=== PATIENT | female | born 1960 | race Caucasian/White ===

== ENCOUNTER 2019-11-28 13:45 | Emergency (ER) | payer MEDICAID, SELFPAY ==
[2019-11-28 14:02] VITALS: BP 121/68; PULSE 90; RESP 16; TEMP 36.7; O2SAT 97; BMI 27.1
== END 2019-11-28 15:10 | disposition left against medical advice (07) ==
LOC: HO.ED 15:08
PROVIDERS: Emergency Provider Emergency Medicine; PCP Family Medicine
DX: R10.9 Unspecified abdominal pain (principal); R11.0 Nausea
CPT/HCPCS: 99281; 99282; 99283

== ENCOUNTER 2019-12-22 14:44 | Emergency (ER) | payer MEDICAID, SELFPAY ==
[2019-12-22 15:35] VITALS: BP 152/77; PULSE 96; RESP 18; TEMP 37.1; O2SAT 97; BMI 27.8
[2019-12-22 15:56] VITALS: BP 178/86; PULSE 97; RESP 14; TEMP 36.8; O2SAT 99
[2019-12-22] MEDS: Ketorolac Tromethamine 30 MG/ML VIAL IM (15:59)
[2019-12-22 16:06] LABS: MANUAL DIFF FLAG NO
[2019-12-22 16:07] LABS: Basophils Percent Auto 0.4 % (0-2); Eosinophils Absolute Auto 0.2 X10*3/uL (0.0-0.4); Eosinophils Percent Auto 2.6 % (0-4); Hematocrit 42.1 % (37-47); Hemoglobin 13.9 g/dl (12.0-16.0); Imm Gran Abs Auto 0.01 X10*3/uL (0.00-0.03); Imm Gran Pct Auto 0.1 % (0.0-0.4); Lymphocytes Absolute Auto 2.2 X10*3/uL (1.2-4.9); Lymphocytes Percent Auto 31.6 % (20-40); Mean Corpuscular Volume 87.9 fL (80-98); Monocytes Absolute Auto 0.4 X10*3/uL (0.1-1.2); Monocytes Percent Auto 6.3 % (2-11); Neutrophils Absolute Auto 4.1 X10*3/uL (2.0-8.3); Platelet Count 296 X10*3/uL (160-400); Red Blood Count 4.79 X10*6/uL (4.20-5.50); Red Cell Distribution Width 13.1 % (11.0-16.0)
[2019-12-22 16:09] LABS: Glucose Urine UA >=1000 MG/DL (NEG); Leukocyte Esterase Urine NEG (NEG); Nitrite Urine NEG (NEG); PH 5.5 (5.0-8.0); Urine Blood TRACE (NEG); Urine Ketones NEG (NEG); Urine Protein TRACE MG/DL (NEG-TRACE)
[2019-12-22 16:13] LABS: Appearance Urine HAZY; Color Urine YELLOW
[2019-12-22 16:23] LABS: RBC Urine 0-2 /HPF (0); WBC Urine 0 /HPF (0-4)
[2019-12-22 16:24] LABS: Bacteria Urine 3+ /LPF; Squamous Epithelial Cell Urine 1+ /LPF
[2019-12-22 16:30] LABS: Lipase 13 U/L (8-78)
[2019-12-22 16:31] LABS: Alanine Aminotransferase 11 U/L (0-31); Alkaline Phosphatase 92 U/L (39-117); Anion Gap 12 (12-20); Aspartate Amino Transferase 10 U/L (5-31); Bilirubin Total 0.5 mg/dL (0.0-1.0); Blood Urea Nitrogen 9 mg/dL (9-16); Calcium 9.4 mg/dL (8.4-10.2); Carbon Dioxide 29 mmol/L (22-29); Chloride 99 mmol/L (96-108); Creatinine Clr Calc Pharmacy 70.7; Estimated Glomerular Filt Rate > 60; Glucose Random 328 mg/dL (60-115); Potassium 4.2 mmol/l (3.3-5.1); Sodium 136 mmol/L (135-145); Total Protein 6.5 g/dL (6.5-8.0)
--- NOTE | 2019-12-22 17:09 | ED.ABDPAIN ---
HPI - Abdominal Pain General Chief Complaint: Abdominal Pain Stated Complaint: abdominal pain Time Seen by Provider: 12/22/19 15:42 Source: patient Mode of arrival: ambulatory Limitations: no limitations History of Present Illness HPI narrative: Left-sided upper abdominal wall pain. States she was going up and down the stairs a few times caring her laundry and felt like pulled something in the abdominal wall and had pain there. Denies any nausea vomiting. Denies any fever or chills. No diarrhea. MD elicited complaint: abdominal pain Onset (ago): hour(s) Pain Consistency: intermittent Location: LUQ Severity: mild Quality: aching Migration to: no migration Exacerbating factors: nothing Associated symptoms: denies other symptoms Related Data Home Medications Medication Instructions Recorded Confirmed HTN Complex 12/22/19 gabapentin 25 mg PO BID 12/22/19 12/22/19 insulin lispro unit SUBCUT 12/22/19 metformin 1,000 mg PO DAILY 12/22/19 12/22/19 oxycodone 5 mg 12/22/19 Allergies Allergy/AdvReac Type Severity Reaction Status Date / Time latex [LATEX] Allergy Unknown RASH Unverified 10/31/19 16:53 morphine Allergy Unknown Verified 08/23/16 00:00 naproxen [From NAPROSYN] Allergy Unknown TACHYCARDIA Unverified 10/31/19 16:53 none Allergy Unknown Uncoded 02/04/19 00:00 Review of Systems Review of Systems Constitutional: No Weight loss, No Fever, No Chills, No Night Sweats, No Fatigue, No Malaise ENT/Mouth: No Hearing loss, No Ear Pain, No Nasal Congestion, No Sinus Pain, No Hoarseness, No sore throat, No Rhinorrhea, No Swallowing Difficulty Eyes: No Eye Pain, No Swelling, No Redness, No Foreign Body, No Discharge, No Vision Changes Cardiovascular: No Chest Pain, No SOB, No Dyspnea on Exertion, No Orthopnea, No Edema, No Palpitations Respiratory: No Cough, No Sputum, No Wheezing, No Smoke Exposure, No Dyspnea Gastrointestinal: No Nausea, No Vomiting, No Diarrhea, No Constipation, + abdominal Pain, No Hematochezia, No Melena Genitourinary: no irregular bleeding, No Dysuria, No Urinary Frequency, No Hematuria, No Urinary Incontinence, No Urgency, No Flank Pain, No Urinary Flow Changes, No Hesitancy Musculoskeletal: No joint pain, No Myalgias, No Joint Swelling Skin: No Skin Lesions, No rash Neuro: No Weakness, No Numbness, No Paresthesias, No Loss of Consciousness, No Dizziness, No Headache Psych: No Anxiety/Panic, No Depression Heme/Lymph: No Bruising, No Bleeding,No Lymphadenopathy Endocrine: No Polyuria, No Polydipsia, No Temperature Intolerance Yes all other systems are reviewed and are negative Physical Exam Vital Signs: Vital Signs: Last Vital Signs Temp 98.2 F 12/22/19 15:56 Pulse 97 12/22/19 15:56 Resp 14 12/22/19 15:56 BP 178/86 H 12/22/19 15:56 Pulse Ox 99 12/22/19 15:56 Body Mass Index 27.8 Reviewed Const: General: cooperative and healthy appearing; No acute distress or intoxicated appearing Nutritional Appearance: average body habitus Orientation/consciousness: patient oriented x3 HENMT: Head: Yes normal to inspection Ears: hearing grossly normal bilaterally Eyes: General: appearance normal, both eyes and all related structures Visual Staples: normal visual staples by confrontation Neck: Neck: Yes normal visual inspection and No tender Thyroid: Thyroid normal Chest: Chest palpation & inspection: normal inspection of the chest Resp: Effort & Inspection: normal respiratory effort Cardio: Jugular venous distension: no JVD GI: Inspection: Yes normal to inspection Percussion: Yes normal to percussion Auscultation: normal bowel sounds Abdomen image: 1. abdominal wall tender palpation. No deep tissue palpation. Hurts to very light touch to the abdominal wall but no to deep tender palpation. : General: Yes no CVA tenderness Back/Spine/Pelvis: Back: no CVA tenderness Skin: General skin exam: no rashes or lesions noted Neuro: General: patient oriented x3 Extrem: General: Yes normal to inspection Course Course Course Narrative: AP/ exam consistent with abdominal wall so strain after lifting laundry bag. Blood pressures bilateral Upper extremities within normal limits. no ETOH history. Labs overall stable very well nontoxic appearing. Labs overall stable will discharge with depression follow-up. Stable for discharge. MDM - Abdominal Pain Differential Diagnosis Differential diagnosis: Likely abdominal pain; Unlikely aortic dissection, acute appendicitis, bowel perforation, calculus of kidney, constipation, diverticulitis, endometriosis, gastroenteritis, mesenteric ischemia, ovarian cyst, pancreatitis, peptic ulcer disease, renal colic and small bowel obstruction Lab Data Result diagrams: 12/22/19 16:01 12/22/19 16:01 Labs: Lab Results 12/22/19 12/22/19 12/22/19 Range/Units 16:01 16:01 16:01 WBC 7.0 (4.8-10.8) X10*3/uL RBC 4.79 (4.20-5.50) X10*6/uL Hgb 13.9 (12.0-16.0) g/dl Hct 42.1 (37-47) % MCV 87.9 (80-98) fL MCH 29.0 (27.0-33.0) pg MCHC 33.0 (31.0-35.0) g/dl RDW 13.1 (11.0-16.0) % Plt Count 296 (160-400) X10*3/uL MPV 9.0 L (9.4-12.3) fL Immature Gran % (Auto) 0.1 (0.0-0.4) % Neut % (Auto) 59.0 (45-73) % Lymph % (Auto) 31.6 (20-40) % [place] % (Auto) 6.3 (2-11) % Eos % (Auto) 2.6 (0-4) % Baso % (Auto) 0.4 (0-2) % Lymph # (Auto) 2.2 (1.2-4.9) X10*3/uL [place] # (Auto) 0.4 (0.1-1.2) X10*3/uL Eos # (Auto) 0.2 (0.0-0.4) X10*3/uL Baso # (Auto) 0.0 (0.0-0.2) X10*3/uL Abs Immat Gran (auto) 0.01 (0.00-0.03) X10*3/uL Absolute Neuts (auto) 4.1 (2.0-8.3) X10*3/uL Absolute Nucleated RBC 0.000 (0.0-0.012) X10*3/uL Nucleated RBC % (auto) 0.0 (0.0-0.2) /100WBC Sodium 136 (135-145) mmol/L Potassium 4.2 (3.3-5.1) mmol/l Chloride 99 (96-108) mmol/L Carbon Dioxide 29 (22-29) mmol/L Anion Gap 12 (12-20) BUN 9 (9-16) mg/dL Creatinine 0.79 (0.5-1.4) mg/dL Estim Creat Clear Calc 70.7 Estimated GFR > 60 Random Glucose 328 H (60-115) mg/dL Calcium 9.4 (8.4-10.2) mg/dL Total Bilirubin 0.5 (0.0-1.0) mg/dL AST 10 (5-31) U/L ALT 11 (0-31) U/L Alkaline Phosphatase 92 (39-117) U/L Total Protein 6.5 (6.5-8.0) g/dL Albumin 4.0 (3.5-5.0) g/dL Lipase 13 (8-78) U/L Urine Color Urine Appearance Urine pH (5.0-8.0) Ur Specific [place] (1.005-1.025) Urine Protein (NEG-TRACE) MG/DL Urine Glucose (UA) (NEG) MG/DL Urine Ketones (NEG) MG/DL Urine Blood (NEG) Urine Nitrite (NEG) Ur Leukocyte Esterase (NEG) Urine RBC (0) /HPF Urine WBC (0-4) /HPF Ur Squamous Epith Cells /LPF Urine Bacteria /LPF 12/22/19 Range/Units 16:01 WBC (4.8-10.8) X10*3/uL RBC (4.20-5.50) X10*6/uL Hgb (12.0-16.0) g/dl Hct (37-47) % MCV (80-98) fL MCH (27.0-33.0) pg MCHC (31.0-35.0) g/dl RDW (11.0-16.0) % Plt Count (160-400) X10*3/uL MPV (9.4-12.3) fL Immature Gran % (Auto) (0.0-0.4) % Neut % (Auto) (45-73) % Lymph % (Auto) (20-40) % [place] % (Auto) (2-11) % Eos % (Auto) (0-4) % Baso % (Auto) (0-2) % Lymph # (Auto) (1.2-4.9) X10*3/uL [place] # (Auto) (0.1-1.2) X10*3/uL Eos # (Auto) (0.0-0.4) X10*3/uL Baso # (Auto) (0.0-0.2) X10*3/uL Abs Immat Gran (auto) (0.00-0.03) X10*3/uL Absolute Neuts (auto) (2.0-8.3) X10*3/uL Absolute Nucleated RBC (0.0-0.012) X10*3/uL Nucleated RBC % (auto) (0.0-0.2) /100WBC Sodium (135-145) mmol/L Potassium (3.3-5.1) mmol/l Chloride (96-108) mmol/L Carbon Dioxide (22-29) mmol/L Anion Gap (12-20) BUN (9-16) mg/dL Creatinine (0.5-1.4) mg/dL Estim Creat Clear Calc Estimated GFR Random Glucose (60-115) mg/dL Calcium (8.4-10.2) mg/dL Total Bilirubin (0.0-1.0) mg/dL AST (5-31) U/L ALT (0-31) U/L Alkaline Phosphatase (39-117) U/L Total Protein (6.5-8.0) g/dL Albumin (3.5-5.0) g/dL Lipase (8-78) U/L Urine Color YELLOW Urine Appearance HAZY Urine pH 5.5 (5.0-8.0) Ur Specific [place] 1.020 (1.005-1.025) Urine Protein TRACE (NEG-TRACE) MG/DL Urine Glucose (UA) >=1000 H (NEG) MG/DL Urine Ketones NEG (NEG) MG/DL Urine Blood TRACE (NEG) Urine Nitrite NEG (NEG) Ur Leukocyte Esterase NEG (NEG) Urine RBC 0-2 (0) /HPF Urine WBC 0 (0-4) /HPF Ur Squamous Epith Cells 1+ /LPF Urine Bacteria 3+ /LPF Discharge Plan Discharge Clinical Impression: Abdominal muscle strain Qualifiers: Encounter type: initial encounter Qualified Code(s): S39.011A - Strain of muscle, fascia and tendon of abdomen, initial encounter Patient Disposition: Home, Self-Care Instructions: Muscle Strain (ED) Prescriptions: No Action oxycodone 5 mg RF: 0 metformin 1,000 mg Tablet 1,000 mg PO DAILY RF: 0 insulin lispro 100 unit/mL Insulin Pen SUBCUT RF: 0 HTN Complex RF: 0 gabapentin 25 mg PO BID RF: 0 Referrals: Radha Jamison DO [Primary Care Provider] - 1 week [facility] Past Medical History Attestation statement: The following information was validated with the patient. Medical History (Updated 12/22/19 @ 17:11 by Sanju Guillen NP) Arthritis Asthma Cyst (solitary) of breast Diabetes HTN (hypertension) Kidney calculi Social History Social History Advance Directives: No Advance Directives Information Provided: Yes
== END 2019-12-22 17:59 | disposition home or self-care (01) ==
PROVIDERS: Nurse Practitioner Primary Care; Emergency Provider Emergency Medicine; PCP Family Medicine
DX: S39.011A Strain of muscle, fascia and tendon of abdomen, initial encounter (principal); R10.12 Left upper quadrant pain; X50.1XXA Overexertion from prolonged static or awkward postures, initial encounter; Y93.9 Activity, unspecified; Y92.9 Unspecified place or not applicable; Y99.9 Unspecified external cause status; Z79.899 Other long term (current) drug therapy
CPT/HCPCS: 36415; 80053; 81001; 83690; 85025; 96372; 99284; J1885

== ENCOUNTER → 2020-01-02 14:49 | Outpatient (BNVA) | payer MEDICAID, SELFPAY | PROVIDERS: PCP Family Medicine; Visit Provider Internal Medicine Cardiovascular Disease | DX: I25.10 Atherosclerotic heart disease of native coronary artery without angina pectoris (principal); I10 Essential (primary) hypertension; R07.89 Other chest pain; Z79.82 Long term (current) use of aspirin; Z79.899 Other long term (current) drug therapy | CPT/HCPCS: 93005; 99202 ==

== ENCOUNTER 2020-01-16 10:06 | Emergency (ER) | payer MEDICAID, SELFPAY ==
[2020-01-16 10:23] VITALS: BP 169/80; PULSE 84; RESP 20; TEMP 36.3; O2SAT 99; BMI 25.6
--- NOTE | 2020-01-16 10:27 | CT_ITS ---
EXAMINATION: CT ABDOMEN AND PELVIS WITH CONTRAST CLINICAL INFORMATION: Left upper quadrant and epigastric pain COMPARISON: CT abdomen and pelvis 12/18/2018 TECHNIQUE: Multidetector volumetric images were obtained from the superior aspect of the liver through the pubic symphysis following administration 85 mL of Omnipaque 350 intravenous contrast. Sagittal and coronal reformatted images were obtained on the technologist's workstation. Oral contrast: No This CT examination was performed using dose optimization techniques as appropriate, variously including the following: *Automated exposure control *Adjustment of mA and/or kV according to patient size (this includes techniques or standardized protocols for targeted exams where dose is matched to indication/reason for exam; i.e. extremities or head) *Use of iterative reconstruction technique DLP: 5:15 mGy-cm FINDINGS: LUNG BASES: There is a 5 mm calcified granuloma left lung base. Heart size is normal. There is a small size hiatal hernia. LIVER, GALLBLADDER, AND BILIARY TREE: The liver is normal in size, shape, and attenuation. No focal hepatic lesion or biliary ductal dilatation is present. The gallbladder is unremarkable with no evidence of radiopaque gallstones, gallbladder wall thickening, or obvious pericholecystic inflammatory changes. PANCREAS: Unremarkable. SPLEEN: Focal calcification is seen in the spleen likely granuloma. Otherwise spleen is normal size. ADRENAL GLANDS: Unremarkable. KIDNEYS AND URETERS: The kidneys are normal in size, shape, and attenuation. No hydronephrosis, hydroureter, or calculi seen. No perinephric stranding. BLADDER: Unremarkable. GASTROINTESTINAL TRACT: There is scattered stool and gas seen throughout the colon without any significant distention. The small bowel loops are normal caliber. There is no free air or free fluid. ABDOMINAL WALL: No significant hernia is appreciated. LYMPH NODES: Normal. VASCULAR: There is atherosclerotic calcification of abdominal aorta without aneurysmal dilatation. PELVIC VISCERA: The uterus is anteverted, enlarged and slightly heterogenous. No focal pelvic mass or free fluid seen. OSSEOUS STRUCTURES: No lytic or sclerotic process seen. CT/CT abdomen pelvis w con IMPRESSION: No acute intra-abdominal process seen. No change in slightly enlarged heterogenous uterus question fibroid disease. Moderate constipation. Small hiatal hernia.. Calcified granuloma left lung base, stable.
--- NOTE | 2020-01-16 10:27 | ECG_ITS ---
Test Reason : EPIGASTRIC PAIN Blood Pressure : / mmHG Vent. Rate : 083 BPM Atrial Rate : 083 BPM P-R Int : 130 ms QRS Dur : 086 ms QT Int : 378 ms P-R-T Axes : 044 -11 050 degrees QTc Int : 444 ms Normal sinus rhythm Minimal voltage criteria for LVH, may be normal variant Nonspecific T wave abnormality Abnormal ECG When compared with ECG of 07-NOV-2019 22:30, Nonspecific T wave abnormality now evident in Inferior leads Nonspecific T wave abnormality, worse in Lateral leads Referred By: Jenifer Reed Electronically Signed By:CAROLYNE ECHOLS MD
--- NOTE | 2020-01-16 10:29 | ED.ABDPAIN ---
HPI - Abdominal Pain General Chief Complaint: Abdominal Pain Stated Complaint: abd pain Time Seen by Provider: 01/16/20 10:27 Source: patient and old records reviewed Mode of arrival: ambulatory Limitations: no limitations History of Present Illness MD elicited complaint: abdominal pain Pertinent past history: other (h pylori infection) Onset (ago): month(s) (1) Pain Consistency: constant Location: epigastric and LUQ Severity: moderate Quality: stabbing, fullness and sharp Migration to: no migration Exacerbating factors: movement Relieving factors: nothing Context: other (just completed H pylori treatment yesterday) Associated symptoms: nausea Related Data Home Medications Medication Instructions Recorded Confirmed metformin 1,000 mg PO DAILY 12/22/19 01/02/20 amitriptyline 50 mg tablet 50 mg PO BEDTIME 01/02/20 01/02/20 aspirin 81 mg tablet,delayed 81 mg PO DAILY 01/02/20 01/02/20 release atorvastatin 80 mg tablet 80 mg PO DAILY 01/02/20 01/02/20 carvedilol 25 mg tablet 25 mg PO BID 01/02/20 01/02/20 docusate sodium 100 mg capsule 100 mg PO DAILY 01/02/20 01/02/20 ergocalciferol (vitamin D2) 50 mcg 50 mcg PO DAILY 01/02/20 01/02/20 (2,000 unit) tablet escitalopram oxalate 20 mg tablet 20 mg PO DAILY 01/02/20 01/02/20 ferrous sulfate 325 mg (65 mg 325 mg PO TID 01/02/20 01/02/20 iron) tablet fluticasone propionate 110 1 puff INHALATION Q12H 01/02/20 01/02/20 mcg/actuation HFA aerosol inhaler fluticasone propionate 50 1 spray INTRANASAL Q12H 01/02/20 01/02/20 mcg/actuation nasal spray,suspension gabapentin 800 mg tablet 800 mg PO TID 01/02/20 01/02/20 hydralazine 100 mg tablet 100 mg PO BID 01/02/20 01/02/20 insulin degludec 100 unit/mL (3 10 unit SUBCUT DAILY 01/02/20 01/02/20 mL) subcutaneous pen insulin lispro 100 unit/mL 1 sliding scale dose SUBCUT 01/02/20 01/02/20 subcutaneous cartridge USEASDIRECTD lisinopril 40 mg tablet 40 mg PO DAILY 01/02/20 01/02/20 mirtazapine 45 mg tablet 45 mg PO DAILY 01/02/20 01/02/20 multivitamin 1 tab PO DAILY 01/02/20 01/02/20 nitroglycerin 0.4 mg sublingual 0.4 mg SUBLINGUAL Q5M PRN 01/02/20 01/02/20 tablet oxycodone 5 mg capsule 5 mg PO Q8H PRN 01/02/20 01/02/20 pantoprazole 40 mg tablet,delayed 40 mg PO DAILY 01/02/20 01/02/20 release pioglitazone 45 mg tablet 45 mg PO DAILY 01/02/20 01/02/20 Previous Rx's Medication Instructions Recorded hydrochlorothiazide 25 mg tablet 25 mg PO DAILY #60 tab 01/02/20 dicyclomine 20 mg PO TID PRN #30 tab 01/16/20 ondansetron 4 mg PO Q8H PRN #20 tab 01/16/20 polyethylene glycol 3350 [Miralax] 17 g PO DAILY PRN #119 g 01/16/20 Allergies Allergy/AdvReac Type Severity Reaction Status Date / Time latex [LATEX] Allergy Unknown RASH Unverified 10/31/19 16:53 morphine Allergy Unknown Verified 08/23/16 00:00 naproxen [From NAPROSYN] Allergy Unknown TACHYCARDIA Unverified 10/31/19 16:53 none Allergy Unknown Uncoded 02/04/19 00:00 Review of Systems Review of Systems Constitutional : No Weight loss, No Fever, No Chills ENT/Mouth : No sore throat, No Rhinorrhea Eyes: No Swelling, No Redness Cardiovascular : No Chest Pain, No SOB, NoEdema Respiratory : No Cough, No Sputum, No Wheezing Gastrointestinal : Positive Nausea, no Vomiting, no Diarrhea, positive abdominal Pain, No Hematochezia, No Melena Genitourinary : No Dysuria, No Urinary Frequency, No Hematuria, No Urgency Musculoskeletal : No joint pain, No Myalgias, No Joint Swelling Skin : No Skin Lesions, No rash Neuro : No Weakness, No Numbness, No Dizziness, No Headache Psych : No Anxiety/Panic, No Depression All other systems reviewed and are negative. Physical Exam Vital Signs: Vital Signs: Last Vital Signs Temp 97.3 F 01/16/20 10:23 Pulse 87 01/16/20 11:17 Resp 20 01/16/20 11:17 BP 169/77 H 01/16/20 11:17 Pulse Ox 98 01/16/20 11:17 Body Mass Index 25.6 Appearance: Alert. Oriented X3. No acute distress. Eyes: Pupils equal, round and reactive to light. ENT: Pharynx normal. Neck: Normal inspection. Neck supple. CVS: Normal heart rate and rhythm. Pulses normal. Respiratory: No respiratory distress. Breath sounds normal. Abdomen: Soft and mild tenderness LUQ and epigastric pain, no rebound or guarding. Skin: Skin warm and dry. Normal skin color. Normal skin turgor. Extremities: No lower extremity edema. No calf ttp Neuro: Oriented X 3. No motor deficit. No sensory deficit. Course Course Course Narrative: labs stable other than chronically high BS, CT scan unremarkable will DC home with supportive care MDM - Abdominal Pain MDM Narrative Medical decision making narrative: 59 yo female just completed h pylori treatment yesterday - here with LUQ and epigastric pain x 1 month, has not had imaging done will need labs, CT Scan for mass, GI cocktail, doubt ACS given prolonged time of her symptoms, dispo per results and findings. Lab Data Result diagrams: 01/16/20 10:42 01/16/20 10:42 Labs: Lab Results 01/16/20 01/16/20 01/16/20 Range/Units 10:42 10:42 10:42 WBC 6.5 (4.8-10.8) X10*3/uL RBC 4.82 (4.20-5.50) X10*6/uL Hgb 14.1 (12.0-16.0) g/dl Hct 42.6 (37-47) % MCV 88.4 (80-98) fL MCH 29.3 (27.0-33.0) pg MCHC 33.1 (31.0-35.0) g/dl RDW 13.1 (11.0-16.0) % Plt Count 299 (160-400) X10*3/uL MPV 9.0 L (9.4-12.3) fL Immature Gran % (Auto) 0.3 (0.0-0.4) % Neut % (Auto) 60.2 (45-73) % Lymph % (Auto) 30.1 (20-40) % [place] % (Auto) 5.7 (2-11) % Eos % (Auto) 3.1 (0-4) % Baso % (Auto) 0.6 (0-2) % Lymph # (Auto) 1.9 (1.2-4.9) X10*3/uL [place] # (Auto) 0.4 (0.1-1.2) X10*3/uL Eos # (Auto) 0.2 (0.0-0.4) X10*3/uL Baso # (Auto) 0.0 (0.0-0.2) X10*3/uL Abs Immat Gran (auto) 0.02 (0.00-0.03) X10*3/uL Absolute Neuts (auto) 3.9 (2.0-8.3) X10*3/uL Absolute Nucleated RBC 0.000 (0.0-0.012) X10*3/uL Nucleated RBC % (auto) 0.0 (0.0-0.2) /100WBC Hold Blue Top SEE NOTE Sodium 136 (135-145) mmol/L Potassium 4.7 (3.3-5.1) mmol/l Chloride 99 (96-108) mmol/L Carbon Dioxide 30 H (22-29) mmol/L Anion Gap 12 (12-20) BUN 10 (9-16) mg/dL Creatinine 0.78 (0.5-1.4) mg/dL Estim Creat Clear Calc 68.8 Estimated GFR > 60 Random Glucose 369 H* (60-115) mg/dL Calcium 9.2 (8.4-10.2) mg/dL Magnesium (1.6-2.6) mg/dL Total Bilirubin (0.0-1.0) mg/dL Direct Bilirubin (0.0-0.5) mg/dL AST (5-31) U/L ALT (0-31) U/L Alkaline Phosphatase (39-117) U/L Troponin I High Sens (<3.5-17.0) ng/L Total Protein (6.5-8.0) g/dL Albumin (3.5-5.0) g/dL Lipase (8-78) U/L Urine Color Urine Appearance Urine pH (5.0-8.0) Ur Specific [place] (1.005-1.025) Urine Protein (NEG-TRACE) MG/DL Urine Glucose (UA) (NEG) MG/DL Urine Ketones (NEG) MG/DL Urine Blood (NEG) Urine Nitrite (NEG) Ur Leukocyte Esterase (NEG) Urine RBC (0) /HPF Urine WBC (0-4) /HPF Ur Squamous Epith Cells /LPF Urine Bacteria /LPF 01/16/20 01/16/20 01/16/20 Range/Units 10:43 10:43 11:16 WBC (4.8-10.8) X10*3/uL RBC (4.20-5.50) X10*6/uL Hgb (12.0-16.0) g/dl Hct (37-47) % MCV (80-98) fL MCH (27.0-33.0) pg MCHC (31.0-35.0) g/dl RDW (11.0-16.0) % Plt Count (160-400) X10*3/uL MPV (9.4-12.3) fL Immature Gran % (Auto) (0.0-0.4) % Neut % (Auto) (45-73) % Lymph % (Auto) (20-40) % [place] % (Auto) (2-11) % Eos % (Auto) (0-4) % Baso % (Auto) (0-2) % Lymph # (Auto) (1.2-4.9) X10*3/uL [place] # (Auto) (0.1-1.2) X10*3/uL Eos # (Auto) (0.0-0.4) X10*3/uL Baso # (Auto) (0.0-0.2) X10*3/uL Abs Immat Gran (auto) (0.00-0.03) X10*3/uL Absolute Neuts (auto) (2.0-8.3) X10*3/uL Absolute Nucleated RBC (0.0-0.012) X10*3/uL Nucleated RBC % (auto) (0.0-0.2) /100WBC Hold Blue Top Sodium (135-145) mmol/L Potassium (3.3-5.1) mmol/l Chloride (96-108) mmol/L Carbon Dioxide (22-29) mmol/L Anion Gap (12-20) BUN (9-16) mg/dL Creatinine (0.5-1.4) mg/dL Estim Creat Clear Calc Estimated GFR Random Glucose (60-115) mg/dL Calcium (8.4-10.2) mg/dL Magnesium 1.6 (1.6-2.6) mg/dL Total Bilirubin 0.7 (0.0-1.0) mg/dL Direct Bilirubin 0.2 (0.0-0.5) mg/dL AST 10 (5-31) U/L ALT 10 (0-31) U/L Alkaline Phosphatase 98 (39-117) U/L Troponin I High Sens 11.8 (<3.5-17.0) ng/L Total Protein 6.8 (6.5-8.0) g/dL Albumin 4.2 (3.5-5.0) g/dL Lipase 11 (8-78) U/L Urine Color YELLOW Urine Appearance CLEAR Urine pH 6.5 (5.0-8.0) Ur Specific [place] 1.015 (1.005-1.025) Urine Protein NEG (NEG-TRACE) MG/DL Urine Glucose (UA) >=1000 H (NEG) MG/DL Urine Ketones NEG (NEG) MG/DL Urine Blood NEG (NEG) Urine Nitrite NEG (NEG) Ur Leukocyte Esterase 1+ H (NEG) Urine RBC 0 (0) /HPF Urine WBC 10-14 H (0-4) /HPF Ur Squamous Epith Cells 2+ /LPF Urine Bacteria NONE /LPF ECG Data Attestation: I personally reviewed and interpreted this ECG as follows: ECG interpretation date: 01/16/20 ECG interpretation time: 10:39 Interpretation: Rate: 83 Rhythm: NSR [place]: left , LVH Normal P waves. Normal GRETCHEN. Normal QRS complex. ST T wave : no ANGI, nonspecific qTC: normal prior studies: no acute ischemia The study has been interpreted contemporaneously by me. . Discharge Plan Discharge Clinical Impression: Abdominal pain Qualifiers: Abdominal location: left upper quadrant Qualified Code(s): R10.12 - Left upper quadrant pain Constipation Qualifiers: Constipation type: unspecified constipation type Qualified Code(s): K59.00 - Constipation, unspecified Patient Disposition: Home, Self-Care Instructions: Constipation (ED), Abdominal Pain (ED) Additional Instructions: return to ED for any worsening symptoms or concerns Prescriptions: New ondansetron 4 mg tablet,disintegrating 4 mg PO Q8H PRN (Reason: nausea and vomiting) Qty: 20 RF: 0 dicyclomine 20 mg tablet 20 mg PO TID PRN (Reason: abdominal pain) Qty: 30 RF: 0 polyethylene glycol 3350 [Miralax] 17 gram/dose powder 17 g PO DAILY PRN (Reason: constipation) Qty: 119 RF: 0 No Action metformin 1,000 mg Tablet 1,000 mg PO DAILY RF: 0 carvedilol [Coreg] 25 mg tablet 25 mg PO BID RF: 0 nitroglycerin 0.4 mg tablet, sublingual 0.4 mg sublingual Q5M PRN (Reason: Chest Pain) RF: 0 multivitamin Tablet 1 tab PO DAILY RF: 0 ergocalciferol (vitamin D2) 50 mcg (2,000 unit) tablet 50 mcg PO DAILY RF: 0 pantoprazole [Protonix] 40 mg tablet,delayed release (DR/EC) 40 mg PO DAILY RF: 0 lisinopril 40 mg tablet 40 mg PO DAILY RF: 0 gabapentin 800 mg tablet 800 mg PO TID RF: 0 hydralazine 100 mg tablet 100 mg PO BID RF: 0 fluticasone propionate 50 mcg/actuation spray,suspension 1 spray intranasal Q12H RF: 0 Flovent HFA 110 mcg/actuation HFA aerosol inhaler 1 puff inhalation Q12H RF: 0 aspirin [Adult Low Dose Aspirin] 81 mg tablet,delayed release (DR/EC) 81 mg PO DAILY RF: 0 ferrous sulfate 325 mg (65 mg iron) tablet 325 mg PO TID RF: 0 pioglitazone [Actos] 45 mg tablet 45 mg PO DAILY RF: 0 escitalopram oxalate [Lexapro] 20 mg tablet 20 mg PO DAILY RF: 0 mirtazapine 45 mg tablet 45 mg PO DAILY RF: 0 amitriptyline 50 mg tablet 50 mg PO BEDTIME RF: 0 atorvastatin [Lipitor] 80 mg tablet 80 mg PO DAILY RF: 0 docusate sodium [Colace] 100 mg capsule 100 mg PO DAILY RF: 0 Tresiba FlexTouch U-100 100 unit/mL (3 mL) insulin pen 10 unit subcut DAILY RF: 0 Humalog U-100 Insulin 100 unit/mL cartridge 1 sliding scale dose subcut USEASDIRECTD RF: 0 oxycodone 5 mg capsule 5 mg PO Q8H PRN (Reason: Pain) RF: 0 hydrochlorothiazide 25 mg tablet 25 mg PO DAILY Qty: 60 RF: 3 Referrals: Radha Jamison DO [Primary Care Provider] - 2 days (if not better) Stand Alone Forms: Work/School Release Print Language: [place]ese [facility] Past Medical History Attestation statement: The following information was validated with the patient. Source: old records reviewed Medical History (Updated 01/16/20 @ 13:38 by Jenifer Reed DO) Arthritis Asthma Cyst (solitary) of breast Diabetes H. pylori infection HTN (hypertension) Kidney calculi Surgical History History of breast surgery History of cardiac cath Social History Social History Alcohol intake: current Alcohol intake frequency: holidays/special occasions only Smoking Status: Light tobacco smoker Cigarettes Per Day: 1 Smoked in Last 30 Days: No Use of substances other than those prescribed or required for medical reasons: No Advance Directives: No Advance Directives Information Provided: No
[2020-01-16 10:49] LABS: MANUAL DIFF FLAG NO
[2020-01-16 10:50] LABS: Basophils Percent Auto 0.6 % (0-2); Eosinophils Absolute Auto 0.2 X10*3/uL (0.0-0.4); Eosinophils Percent Auto 3.1 % (0-4); Hematocrit 42.6 % (37-47); Hemoglobin 14.1 g/dl (12.0-16.0); Imm Gran Abs Auto 0.02 X10*3/uL (0.00-0.03); Imm Gran Pct Auto 0.3 % (0.0-0.4); Lymphocytes Absolute Auto 1.9 X10*3/uL (1.2-4.9); Lymphocytes Percent Auto 30.1 % (20-40); Mean Corpuscular HGB Conc 33.1 g/dl (31.0-35.0); Mean Corpuscular Hemoglobin 29.3 pg (27.0-33.0); Mean Corpuscular Volume 88.4 fL (80-98); Monocytes Absolute Auto 0.4 X10*3/uL (0.1-1.2); Monocytes Percent Auto 5.7 % (2-11); Neutrophils Absolute Auto 3.9 X10*3/uL (2.0-8.3); Neutrophils Percent Auto 60.2 % (45-73); Platelet Count 299 X10*3/uL (160-400); Red Blood Count 4.82 X10*6/uL (4.20-5.50); Red Cell Distribution Width 13.1 % (11.0-16.0); White Blood Count 6.5 X10*3/uL (4.8-10.8)
[2020-01-16] MEDS: ondansetron HCL 4 MG/2 ML VIAL IVPUSH (10:52)
[2020-01-16] MEDS: Magnesium Hydrox/Alum Hydrox 30 ML ORAL.SUSP PO (10:52)
[2020-01-16] MEDS: Lidocaine HCl Viscous 2 % 15 ML SOLUTION MUCOUS MEM (10:52)
[2020-01-16 11:17] VITALS: BP 169/77; PULSE 87; RESP 20; O2SAT 98
[2020-01-16 11:25] LABS: Alanine Aminotransferase 10 U/L (0-31); Albumin Level 4.2 g/dL (3.5-5.0); Alkaline Phosphatase 98 U/L (39-117); Aspartate Amino Transferase 10 U/L (5-31); Bilirubin Direct 0.2 mg/dL (0.0-0.5); Bilirubin Total 0.7 mg/dL (0.0-1.0); Lipase 11 U/L (8-78); Magnesium 1.6 mg/dL (1.6-2.6); Total Protein 6.8 g/dL (6.5-8.0)
[2020-01-16 11:28] LABS: Troponin-I High Sensitivity 11.8 ng/L (<3.5-17.0)
[2020-01-16 11:37] LABS: Anion Gap 12 (12-20); Blood Urea Nitrogen 10 mg/dL (9-16); Calcium 9.2 mg/dL (8.4-10.2); Carbon Dioxide 30 mmol/L (22-29); Chloride 99 mmol/L (96-108); Creatinine Clr Calc Pharmacy 68.8; Estimated Glomerular Filt Rate > 60; Glucose Random 369 mg/dL (60-115); Potassium 4.7 mmol/l (3.3-5.1); Sodium 136 mmol/L (135-145)
[2020-01-16 11:41] LABS: Glucose Urine UA >=1000 MG/DL (NEG); Leukocyte Esterase Urine 1+ (NEG); Nitrite Urine NEG (NEG); PH 6.5 (5.0-8.0); Specific Gravity - Urine 1.015 (1.005-1.025); Urine Blood NEG (NEG); Urine Ketones NEG (NEG); Urine Protein NEG (NEG-TRACE)
[2020-01-16 11:42] LABS: Appearance Urine CLEAR; Color Urine YELLOW
[2020-01-16 11:50] LABS: RBC Urine 0 /HPF (0); Squamous Epithelial Cell Urine 2+ /LPF
[2020-01-16] MEDS: iohexoL 350 MG/ML 100 ML INFUS..BTL IV (13:06)
[2020-01-16 14:21] VITALS: BP 158/81; PULSE 86; RESP 14; O2SAT 96
== END 2020-01-16 14:27 | disposition home or self-care (01) ==
PROVIDERS: Emergency Provider Emergency Medicine; PCP Family Medicine
DX: R10.12 Left upper quadrant pain (principal); K59.00 Constipation, unspecified; I10 Essential (primary) hypertension; E11.9 Type 2 diabetes mellitus without complications; Z79.4 Long term (current) use of insulin; Z79.899 Other long term (current) drug therapy; Z79.82 Long term (current) use of aspirin
CPT/HCPCS: 36415; 74177; 80048; 80076; 81001; 83690; 83735; 84484; 85025; 87086; 93005; 96374; 99284; J2405; Q9967

== ENCOUNTER 2020-01-20 15:24 | Outpatient (REF) | payer MEDICAID, SELFPAY ==
--- NOTE | 2020-01-20 15:26 | CT_ITS ---
EXAMINATION: CT CHEST WITHOUT CONTRAST CLINICAL INFORMATION: Pulmonary nodule COMPARISON: Previous chest CT December 2018 TECHNIQUE: Multidetector volumetric CT imaging of the chest was done. Axial MIP volume rendering provided. Sagittal and coronal reformatted images were obtained. This CT examination was performed using dose optimization techniques as appropriate, variously including the following: *Automated exposure control *Adjustment of mA and/or kV according to patient size (this includes techniques or standardized protocols for targeted exams where dose is matched to indication/reason for exam; i.e. extremities or head) *Use of iterative reconstruction technique DLP: 168 mGy-cm FINDINGS: LUNGS: There is a 6 x 7 mm calcified left lower lobe nodule axial image 327 series 8 that is stable. There is a small 2 mm calcified left lower lobe nodule axial image 251 series 8 that is stable. There is a new 2 mm noncalcified right upper lobe nodule axial image 252 series 8. This may represent bronchial soft tissue opacification. MEDIASTINUM: There are left hilar calcified lymph nodes that are stable. There are small noncalcified mediastinal lymph nodes. No enlarged lymph nodes are seen. The heart does not appear enlarged. There is mild coronary artery calcification. There is no pericardial effusion. There is an esophageal hernia. PLEURA: There is no pleural effusion. No pleural mass or thickening. AXILLA: No lymphadenopathy. UPPER ABDOMEN: There are small calcifications in the spleen and liver. There is a small right renal stone.. OSSEOUS STRUCTURES: There are degenerative changes of the spine. CT/CT chest wo con IMPRESSION: Evidence of old granulomatous disease similar to previous exam. New small 2 mm noncalcified right upper lobe nodule probably related to bronchial secretions. Mild coronary artery calcification. Esophageal hernia. Small right renal stone.
== END 2020-01-20 15:25 | disposition home or self-care (01) ==
LOC: HO.CT 15:24
PROVIDERS: Visit Provider Family Medicine
DX: R91.1 Solitary pulmonary nodule (principal)
CPT/HCPCS: 71250

== ENCOUNTER 2020-02-23 12:25 | Emergency (ER) | payer MEDICAID, SELFPAY ==
[2020-02-23 13:19] VITALS: BP 137/71; PULSE 88; RESP 18; TEMP 36.4; O2SAT 100; BMI 27.2
--- NOTE | 2020-02-23 16:47 | PC.NURSE ---
no answer when called
== END 2020-02-23 16:49 | disposition left against medical advice (07) ==
PROVIDERS: Emergency Provider Emergency Medicine; PCP Family Medicine
DX: R10.9 Unspecified abdominal pain (principal)
CPT/HCPCS: 99282

== ENCOUNTER 2020-03-02 12:41 | Emergency (ER) | payer MEDICAID, SELFPAY ==
[2020-03-02 12:50] VITALS: BP 127/76; PULSE 100; RESP 18; TEMP 37; O2SAT 98; BMI 27.1
--- NOTE | 2020-03-02 12:54 | ED_ITS ---
HPI - Extremity Injury (Lower) General Chief Complaint: Extremity Injury, Lower Stated Complaint: L side pain s/p fall Time Seen by Provider: 03/02/20 12:54 Source: patient Mode of arrival: ambulatory Limitations: language barrier History of Present Illness HPI Narrative: 59 y/o female with history of CAD, HTN, DM who presents with left heel pain for the last few days due to cracked skin. She denies trauma. She de nies drainage of pus, warmth or red discoloration. She states the pain in her heel is making it difficult to walk. She has been using Vasoline today without imrovement. MD complaint: foot injury Onset (ago): day(s) (2) Injury: Left: foot (posterior heel) Type of Injury: unknown Place: home Severity: mild Relieving factors: nothing Exacerbating factors: weight bearing Associated symptoms: able to partially bear weight Other symptoms: none Related Data Home Medications Medication Instructions Recorded Confirmed metformin 1,000 mg PO DAILY 12/22/19 01/02/20 amitriptyline 50 mg tablet 50 mg PO BEDTIME 01/02/20 01/02/20 aspirin 81 mg tablet,delayed 81 mg PO DAILY 01/02/20 01/02/20 release atorvastatin 80 mg tablet 80 mg PO DAILY 01/02/20 01/02/20 carvedilol 25 mg tablet 25 mg PO BID 01/02/20 01/02/20 docusate sodium 100 mg capsule 100 mg PO DAILY 01/02/20 01/02/20 ergocalciferol (vitamin D2) 50 mcg 50 mcg PO DAILY 01/02/20 01/02/20 (2,000 unit) tablet escitalopram oxalate 20 mg tablet 20 mg PO DAILY 01/02/20 01/02/20 ferrous sulfate 325 mg (65 mg 325 mg PO TID 01/02/20 01/02/20 iron) tablet fluticasone propionate 110 1 puff INHALATION Q12H 01/02/20 01/02/20 mcg/actuation HFA aerosol inhaler fluticasone propionate 50 1 spray INTRANASAL Q12H 01/02/20 01/02/20 mcg/actuation nasal spray,suspension gabapentin 800 mg tablet 800 mg PO TID 01/02/20 01/02/20 hydralazine 100 mg tablet 100 mg PO BID 01/02/20 01/02/20 insulin degludec 100 unit/mL (3 10 unit SUBCUT DAILY 01/02/20 01/02/20 mL) subcutaneous pen insulin lispro 100 unit/mL 1 sliding scale dose SUBCUT 01/02/20 01/02/20 subcutaneous cartridge USEASDIRECTD lisinopril 40 mg tablet 40 mg PO DAILY 01/02/20 01/02/20 mirtazapine 45 mg tablet 45 mg PO DAILY 01/02/20 01/02/20 multivitamin 1 tab PO DAILY 01/02/20 01/02/20 nitroglycerin 0.4 mg sublingual 0.4 mg SUBLINGUAL Q5M PRN 01/02/20 01/02/20 tablet oxycodone 5 mg capsule 5 mg PO Q8H PRN 01/02/20 01/02/20 pantoprazole 40 mg tablet,delayed 40 mg PO DAILY 01/02/20 01/02/20 release pioglitazone 45 mg tablet 45 mg PO DAILY 01/02/20 01/02/20 Previous Rx's Medication Instructions Recorded hydrochlorothiazide 25 mg tablet 25 mg PO DAILY #60 tab 01/02/20 dicyclomine 20 mg PO TID PRN #30 tab 01/16/20 ondansetron 4 mg PO Q8H PRN #20 tab 01/16/20 polyethylene glycol 3350 [Miralax] 17 g PO DAILY PRN #119 g 01/16/20 cephalexin [Keflex] 500 mg PO QID 5 Days #20 cap 03/02/20 Allergies Allergy/AdvReac Type Severity Reaction Status Date / Time latex [LATEX] Allergy Unknown RASH Verified 03/02/20 12:49 morphine Allergy Unknown Unknown Verified 03/02/20 12:49 naproxen [From NAPROSYN] Allergy Unknown TACHYCARDIA Verified 03/02/20 12:49 Review of Systems Review of Systems: Constitutional: No Fever, No Chills Cardiovascular: No Chest Pain, No SOB Respiratory: No Cough, No Sputum Gastrointestinal: No Nausea, No Vomiting Musculoskeletal: + joint pain, No Myalgias Skin: +Skin Lesions, No rash Neuro: No Weakness, No Numbness, No Dizziness, No Headache PMFSH Past Medical History Attestation statement: The following information was validated with the patient. Medical History Arthritis Asthma Cyst (solitary) of breast Diabetes H. pylori infection HTN (hypertension) Kidney calculi Surgical History History of breast surgery History of cardiac cath Social History Social History Alcohol intake: current Alcohol intake frequency: holidays/special occasions only Smoking Status: Light tobacco smoker Cigarettes Per Day: 1 Advance Directives: No Advance Directives Information Provided: No Physical Exam Vital Signs: Vital Signs: Last Vital Signs Temp 98.6 F 03/02/20 12:50 Pulse 100 03/02/20 12:50 Resp 18 03/02/20 12:50 BP 127/76 03/02/20 12:50 Pulse Ox 98 03/02/20 12:50 Body Mass Index 27.1 Appearance: Alert. Oriented X3. No acute distress. HEENT: normal inspection Respiratory: No respiratory distress. Skin: Skin warm and dry. Normal skin color. Normal skin turgor. No rashes. Extremities: left posterior heel with 1.5 cm superficial dermis crack, tender to touch, without erythema. Neuro: Oriented X 3. No motor deficit. No sensory deficit. limping gait Course Course Course Narrative: 59 y/o female with superficial skin crack on the left heel, atraumatic. Exam is very minimal skin crack on heel due to dry skin. Counseled on OTC management. Given hx of DM will give ppx Keflex if no improvement in 2 days. Patient expressed understanding and will f/u with her PCP this week. Critical Care Time Critical Care Time Critical Care Time: No Discharge Plan Discharge Clinical Impression: Dry skin Patient Disposition: Home, Self-Care Instructions: Lanolin (On the skin) Additional Instructions: Use Vasoline on the area every night. Use over the counter CereVa or Eucerin cream or Lanolin cream or Aquaphor on the area several times per day. Take Motrin and/or Tylenol as needed for discomfort. If the pain is not improved in 2 days, take the prescribed antibiotics. Follow up with your doctor tomorrow. Prescriptions: New cephalexin [Keflex] 500 mg capsule 500 mg PO QID 5 Days Qty: 20 RF: 0 No Action metformin 1,000 mg Tablet 1,000 mg PO DAILY RF: 0 ondansetron 4 mg tablet,disintegrating 4 mg PO Q8H PRN (Reason: nausea and vomiting) Qty: 20 RF: 0 dicyclomine 20 mg tablet 20 mg PO TID PRN (Reason: abdominal pain) Qty: 30 RF: 0 polyethylene glycol 3350 [Miralax] 17 gram/dose powder 17 g PO DAILY PRN (Reason: constipation) Qty: 119 RF: 0 carvedilol [Coreg] 25 mg tablet 25 mg PO BID RF: 0 nitroglycerin 0.4 mg tablet, sublingual 0.4 mg sublingual Q5M PRN (Reason: Chest Pain) RF: 0 multivitamin Tablet 1 tab PO DAILY RF: 0 ergocalciferol (vitamin D2) 50 mcg (2,000 unit) tablet 50 mcg PO DAILY RF: 0 pantoprazole [Protonix] 40 mg tablet,delayed release (DR/EC) 40 mg PO DAILY RF: 0 lisinopril 40 mg tablet 40 mg PO DAILY RF: 0 gabapentin 800 mg tablet 800 mg PO TID RF: 0 hydralazine 100 mg tablet 100 mg PO BID RF: 0 fluticasone propionate 50 mcg/actuation spray,suspension 1 spray intranasal Q12H RF: 0 Flovent HFA 110 mcg/actuation HFA aerosol inhaler 1 puff inhalation Q12H RF: 0 aspirin [Adult Low Dose Aspirin] 81 mg tablet,delayed release (DR/EC) 81 mg PO DAILY RF: 0 ferrous sulfate 325 mg (65 mg iron) tablet 325 mg PO TID RF: 0 pioglitazone [Actos] 45 mg tablet 45 mg PO DAILY RF: 0 escitalopram oxalate [Lexapro] 20 mg tablet 20 mg PO DAILY RF: 0 mirtazapine 45 mg tablet 45 mg PO DAILY RF: 0 amitriptyline 50 mg tablet 50 mg PO BEDTIME RF: 0 atorvastatin [Lipitor] 80 mg tablet 80 mg PO DAILY RF: 0 docusate sodium [Colace] 100 mg capsule 100 mg PO DAILY RF: 0 Tresiba FlexTouch U-100 100 unit/mL (3 mL) insulin pen 10 unit subcut DAILY RF: 0 Humalog U-100 Insulin 100 unit/mL cartridge 1 sliding scale dose subcut USEASDIRECTD RF: 0 oxycodone 5 mg capsule 5 mg PO Q8H PRN (Reason: Pain) RF: 0 hydrochlorothiazide 25 mg tablet 25 mg PO DAILY Qty: 60 RF: 3 Print Language: Emirati
== END 2020-03-02 13:25 | disposition home or self-care (01) ==
PROVIDERS: Emergency Provider Emergency Medicine; PCP Family Medicine
DX: L85.3 Xerosis cutis (principal); E11.9 Type 2 diabetes mellitus without complications; I10 Essential (primary) hypertension; Z79.4 Long term (current) use of insulin; Z79.82 Long term (current) use of aspirin; Z79.899 Other long term (current) drug therapy; F17.210 Nicotine dependence, cigarettes, uncomplicated
CPT/HCPCS: 99283

== ENCOUNTER → 2020-03-03 11:12 | Outpatient (BNVA) | payer MEDICAID, SELFPAY | PROVIDERS: PCP Family Medicine; Visit Provider Nurse Practitioner ==

== ENCOUNTER 2020-03-09 14:54 | Emergency (ER) | payer MEDICAID, SELFPAY ==
--- NOTE | 2020-03-09 | XR_ITS ---
EXAMINATION: XR ANKLE, LEFT CLINICAL INFORMATION: Pain COMPARISON: None TECHNIQUE: AP, lateral, and mortise views of the left ankle. FINDINGS: There is no fracture dislocation or destructive process. Ankle mortise is symmetric. The malleoli appear intact. Talar dome shows no osteochondral lesion. No visible ankle capsular effusion. The retrocalcaneal recess is preserved. There are moderate posterior and plantar calcaneal spurs. XR/XR ankle LT min 3V IMPRESSION: 1. No fracture or dislocation or visible ankle capsular effusion. 2. Calcaneal spurs.
[2020-03-09 15:48] VITALS: BP 140/67; PULSE 106; RESP 18; TEMP 36.6; O2SAT 99; BMI 27.1
--- NOTE | 2020-03-09 17:05 | ED.LOWEXIN ---
HPI - Extremity Injury (Lower) General Chief Complaint: Extremity Injury, Lower Stated Complaint: ANKLE PAIN Time Seen by Provider: 03/09/20 16:40 Source: patient Mode of arrival: ambulatory Limitations: no limitations History of Present Illness HPI Narrative: 59-year-old female presenting to the ED with complaints of left ankle/foot pain for the past month worse with walking. Reports she has been taking her prescribed 5 mg oxycodone and has been doubling up in taking 10 mg and no symptomatic relief. Denies any injuries, denies any fevers, dizziness, headaches, chest pain, shortness of breath, orthopnea, dyspnea on exertion, palpitations, lower extremity edema or any other symptoms complaints or concerns at this time. Related Data Home Medications Medication Instructions Recorded Confirmed metformin 1,000 mg PO DAILY 12/22/19 01/02/20 amitriptyline 50 mg tablet 50 mg PO BEDTIME 01/02/20 01/02/20 aspirin 81 mg tablet,delayed 81 mg PO DAILY 01/02/20 01/02/20 release atorvastatin 80 mg tablet 80 mg PO DAILY 01/02/20 01/02/20 carvedilol 25 mg tablet 25 mg PO BID 01/02/20 01/02/20 docusate sodium 100 mg capsule 100 mg PO DAILY 01/02/20 01/02/20 ergocalciferol (vitamin D2) 50 mcg 50 mcg PO DAILY 01/02/20 01/02/20 (2,000 unit) tablet escitalopram oxalate 20 mg tablet 20 mg PO DAILY 01/02/20 01/02/20 ferrous sulfate 325 mg (65 mg 325 mg PO TID 01/02/20 01/02/20 iron) tablet fluticasone propionate 110 1 puff INHALATION Q12H 01/02/20 01/02/20 mcg/actuation HFA aerosol inhaler fluticasone propionate 50 1 spray INTRANASAL Q12H 01/02/20 01/02/20 mcg/actuation nasal spray,suspension gabapentin 800 mg tablet 800 mg PO TID 01/02/20 01/02/20 hydralazine 100 mg tablet 100 mg PO BID 01/02/20 01/02/20 insulin degludec 100 unit/mL (3 10 unit SUBCUT DAILY 01/02/20 01/02/20 mL) subcutaneous pen insulin lispro 100 unit/mL 1 sliding scale dose SUBCUT 01/02/20 01/02/20 subcutaneous cartridge USEASDIRECTD lisinopril 40 mg tablet 40 mg PO DAILY 01/02/20 01/02/20 mirtazapine 45 mg tablet 45 mg PO DAILY 01/02/20 01/02/20 multivitamin 1 tab PO DAILY 01/02/20 01/02/20 nitroglycerin 0.4 mg sublingual 0.4 mg SUBLINGUAL Q5M PRN 01/02/20 01/02/20 tablet oxycodone 5 mg capsule 5 mg PO Q8H PRN 01/02/20 01/02/20 pioglitazone 45 mg tablet 45 mg PO DAILY 01/02/20 01/02/20 pantoprazole 40 mg tablet,delayed 40 mg PO BID tab 03/03/20 03/03/20 release Previous Rx's Medication Instructions Recorded hydrochlorothiazide 25 mg tablet 25 mg PO DAILY #60 tab 01/02/20 dicyclomine 20 mg PO TID PRN #30 tab 01/16/20 ondansetron 4 mg PO Q8H PRN #20 tab 01/16/20 polyethylene glycol 3350 [Miralax] 17 g PO DAILY PRN #119 g 01/16/20 cephalexin [Keflex] 500 mg PO QID 5 Days #20 cap 03/02/20 simethicone 125 mg chewable tablet 125 mg PO QID 30 Days #120 tab 03/03/20 cephalexin [Keflex] 500 mg PO Q6H 10 Days #40 cap 03/09/20 doxycycline monohydrate 100 mg PO BID 10 Days #20 cap 03/09/20 ibuprofen 800 mg PO Q8H PRN #14 tab 03/09/20 prednisone 40 mg PO DAILY 5 Days #10 tab 03/09/20 Allergies Allergy/AdvReac Type Severity Reaction Status Date / Time latex [LATEX] Allergy Unknown RASH Verified 03/09/20 15:48 naproxen [From NAPROSYN] Allergy Unknown TACHYCARDIA Verified 03/09/20 15:48 Review of Systems Review of Systems: Constitutional : No Fever, No Chills Eyes: No Vision Changes Cardiovascular : No Chest Pain, No SOB, No Dyspnea on Exertion, No Orthopnea, No Edema, No Palpitations Respiratory : No Cough, No Sputum, No Wheezing, No Dyspnea Musculoskeletal : + joint pain, No Myalgias, No Joint Swelling Skin : No Skin Lesions, No rash Neuro : No Weakness, No Numbness, No Paresthesias, No Loss of Consciousness, No Dizziness, No Headache Yes all other systems are reviewed and are negative [facility] Past Medical History Attestation statement: The following information was validated with the patient. Medical History Arthritis Asthma Cyst (solitary) of breast Diabetes H. pylori infection HTN (hypertension) Kidney calculi Surgical History History of breast surgery History of cardiac cath History of esophagogastroduodenoscopy (EGD) Hx of colonoscopy Family History Family History Mother Diabetes Liver cancer Social History Social History Alcohol intake: current Alcohol intake frequency: does not drink Smoking Status: Current every day smoker Tobacco Type: Cigarette Cigarettes Per Day: 4 Advance Directives: No Advance Directives Information Provided: No Physical Exam Vital Signs: Vital Signs: Last Vital Signs Temp 97.8 F 03/09/20 15:48 Pulse 106 H 03/09/20 15:48 Resp 18 03/09/20 15:48 BP 140/67 H 03/09/20 15:48 Pulse Ox 99 03/09/20 15:48 Body Mass Index 27.1 vital signs have been reviewed as normal and appeared to be correct. Blood pressure normal. Heart rate normal. Respiration rate normal. Temperature normal. Oxygen saturation normal. Appearance: Alert. Oriented X3. No acute distress. Head: Normal external exam. Normocephalic. Atraumatic. Eyes: PERRLA. EOMI. Conjunctiva and sclera normal. Eyelids normal. ENT: Pharynx normal. Uvula midline. Moist mucous membranes. Neck: Normal inspection. Neck supple. FROM. No adenopathy. No meningeal signs. CVS: Normal heart rate and rhythm. Heart sound normal. No murmurs noted. Pulses normal throughout. Respiratory: No respiratory distress. Painless inspiration. Breath sounds normal. No wheezes/rales/rhonchi noted. Chest nontender. No accessory muscle usage noted or decreased air movement noted. Back: Full range of motion noted. Skin: Skin warm and dry. Normal skin color. Normal skin turgor. No rashes/lesions/lacerations noted. Extremities: Patient tender to palpation to left calcaneus with mild soft tissue swelling and erythema noted. No fluctuance noted. Achilles tendon is within normal limits. Otherwise all Extremities exhibit normal range of motion and nontender. No calf tenderness noted. No lower extremity edema. No pitting edema. Neuro: Oriented X 3. No motor deficit. No sensory deficit. Reflexes normal. Course Course Course Narrative: 59-year-old female presenting to the ED with complaints of left ankle/foot pain for the past month worse with walking. Reports she has been taking her prescribed 5 mg oxycodone and has been doubling up in taking 10 mg and no symptomatic relief. Denies any injuries, denies any fevers, dizziness, headaches, chest pain, shortness of breath, orthopnea, dyspnea on exertion, palpitations, lower extremity edema or any other symptoms complaints or concerns at this time. Patient is asking for something stronger than 10 mg of oxycodone. - on exam patient is noted to have mild soft tissue swelling to left calcaneus and erythema and tenderness to palpation. Taveras's test is negative Achilles tendon is within normal limits. No rupture of the Achilles tendon noted. X-ray obtained and revealed calcaneus spurs. I explained to the patient we cannot give her 10 mg of oxycodone she needs to continue taking her prescribed medications I told her I could give her some steroids for the inflammation, high-dose Motrin and antibiotics for possible cellulitis infection. Will DC home with symptomatic treatment along with referral to Podiatry and instructions to follow-up with primary care provider. Patient understands agrees the plan. MDM - Extremity Injury (Lower) Medical Records Attestation: I reviewed the patient's medical records. Imaging Data Left ankle: Attestation: I personally reviewed and interpreted this imaging study as follows: Radiologist's impression: FINDINGS: There is no fracture dislocation or destructive process. Ankle mortise is symmetric. The malleoli appear intact. Talar dome shows no osteochondral lesion. No visible ankle capsular effusion. The retrocalcaneal recess is preserved. There are moderate posterior and plantar calcaneal spurs. XR/XR ankle LT min 3V IMPRESSION: 1. No fracture or dislocation or visible ankle capsular effusion. 2. Calcaneal spurs. Discharge Plan Discharge Clinical Impression: Calcaneal spur of left foot, Cellulitis of foot, left Patient Disposition: Home, Self-Care Instructions: Cellulitis (ED), Heel Spur (ED) Prescriptions: New ibuprofen 800 mg tablet 800 mg PO Q8H PRN (Reason: pain) Qty: 14 RF: 0 prednisone 20 mg tablet 40 mg PO DAILY 5 Days Qty: 10 RF: 0 doxycycline monohydrate 100 mg capsule 100 mg PO BID 10 Days Qty: 20 RF: 0 cephalexin [Keflex] 500 mg capsule 500 mg PO Q6H 10 Days Qty: 40 RF: 0 No Action metformin 1,000 mg Tablet 1,000 mg PO DAILY RF: 0 ondansetron 4 mg tablet,disintegrating 4 mg PO Q8H PRN (Reason: nausea and vomiting) Qty: 20 RF: 0 dicyclomine 20 mg tablet 20 mg PO TID PRN (Reason: abdominal pain) Qty: 30 RF: 0 polyethylene glycol 3350 [Miralax] 17 gram/dose powder 17 g PO DAILY PRN (Reason: constipation) Qty: 119 RF: 0 cephalexin [Keflex] 500 mg capsule 500 mg PO QID 5 Days Qty: 20 RF: 0 carvedilol [Coreg] 25 mg tablet 25 mg PO BID RF: 0 nitroglycerin 0.4 mg tablet, sublingual 0.4 mg sublingual Q5M PRN (Reason: Chest Pain) RF: 0 multivitamin Tablet 1 tab PO DAILY RF: 0 ergocalciferol (vitamin D2) 50 mcg (2,000 unit) tablet 50 mcg PO DAILY RF: 0 lisinopril 40 mg tablet 40 mg PO DAILY RF: 0 gabapentin 800 mg tablet 800 mg PO TID RF: 0 hydralazine 100 mg tablet 100 mg PO BID RF: 0 fluticasone propionate 50 mcg/actuation spray,suspension 1 spray intranasal Q12H RF: 0 Flovent HFA 110 mcg/actuation HFA aerosol inhaler 1 puff inhalation Q12H RF: 0 aspirin [Adult Low Dose Aspirin] 81 mg tablet,delayed release (DR/EC) 81 mg PO DAILY RF: 0 ferrous sulfate 325 mg (65 mg iron) tablet 325 mg PO TID RF: 0 pioglitazone [Actos] 45 mg tablet 45 mg PO DAILY RF: 0 escitalopram oxalate [Lexapro] 20 mg tablet 20 mg PO DAILY RF: 0 mirtazapine 45 mg tablet 45 mg PO DAILY RF: 0 amitriptyline 50 mg tablet 50 mg PO BEDTIME RF: 0 atorvastatin [Lipitor] 80 mg tablet 80 mg PO DAILY RF: 0 docusate sodium [Colace] 100 mg capsule 100 mg PO DAILY RF: 0 Tresiba FlexTouch U-100 100 unit/mL (3 mL) insulin pen 10 unit subcut DAILY RF: 0 Humalog U-100 Insulin 100 unit/mL cartridge 1 sliding scale dose subcut USEASDIRECTD RF: 0 oxycodone 5 mg capsule 5 mg PO Q8H PRN (Reason: Pain) RF: 0 hydrochlorothiazide 25 mg tablet 25 mg PO DAILY Qty: 60 RF: 3 pantoprazole [Protonix] 40 mg tablet,delayed release (DR/EC) 40 mg PO BID RF: 0 simethicone [Gas Relief (simethicone)] 125 mg tablet,chewable 125 mg PO QID 30 Days Qty: 120 RF: 3 Referrals: Pj Stark [Physician] - 2 days Print Language: Kiswahili
[2020-03-09] MEDS: Ibuprofen 800 MG TABLET PO (17:21)
[2020-03-09] MEDS: predniSONE 20 MG TABLET 40 MG PO (17:22)
[2020-03-09] MEDS: oxyCODONE HCl Immed Release 5 MG TABLET 10 MG PO (17:22)
[2020-03-09 17:24] VITALS: BP 125/75; PULSE 87; RESP 17; O2SAT 98
== END 2020-03-09 18:31 | disposition home or self-care (01) ==
PROVIDERS: Emergency Provider Emergency Medicine Emergency Medical Services; PCP Family Medicine
DX: M77.32 Calcaneal spur, left foot (principal); L03.116 Cellulitis of left lower limb; E11.9 Type 2 diabetes mellitus without complications; I10 Essential (primary) hypertension
CPT/HCPCS: 73610; 99283; 99284

== ENCOUNTER 2020-04-06 11:35 | Emergency (ER) | payer MEDICAID, SELFPAY ==
--- NOTE | 2020-04-06 12:40 | PC.NURSE ---
called to ed 1216, 1224 and 1230 no response in wr
== END 2020-04-06 13:01 | disposition left against medical advice (07) ==
PROVIDERS: Emergency Provider Emergency Medicine; PCP Family Medicine
DX: M79.89 Other specified soft tissue disorders (principal); M79.669 Pain in unspecified lower leg
CPT/HCPCS: 99281

== ENCOUNTER 2020-04-07 15:49 | Emergency (ER) | payer MEDICAID, SELFPAY ==
--- NOTE | ~2020-04-07 | XR_ITS ---
EXAMINATION: 1. LEFT FOOT. 2. LEFT TIBIA-FIBULA. CLINICAL INFORMATION: Swelling. Tenderness. COMPARISON: None TECHNIQUE: 1. Left foot. 3 views 2. Left leg. 2 views FINDINGS: 1. Left foot. No fracture. No dislocation. Joint spaces are normal. There is no soft tissue abnormality. There is a plantar calcaneal spur. There is a spur at the posterior calcaneus at the insertion of the Achilles tendon. 2. Left leg. There is no acute abnormality. There is no fracture. No focal bone lesion or abnormal periosteal reaction. There are a couple of corticated osseous densities anterior tibial at the tibial tubercle at the patellar tendon insertion which are chronic. There is no soft tissue abnormality. XR/XR tibia fibula LT 2V IMPRESSION: 1. Left foot. No acute abnormality. 2. Left leg. No acute abnormality.
--- NOTE | ~2020-04-07 | XR_ITS ---
EXAMINATION: 1. LEFT FOOT. 2. LEFT TIBIA-FIBULA. CLINICAL INFORMATION: Swelling. Tenderness. COMPARISON: None TECHNIQUE: 1. Left foot. 3 views 2. Left leg. 2 views FINDINGS: 1. Left foot. No fracture. No dislocation. Joint spaces are normal. There is no soft tissue abnormality. There is a plantar calcaneal spur. There is a spur at the posterior calcaneus at the insertion of the Achilles tendon. 2. Left leg. There is no acute abnormality. There is no fracture. No focal bone lesion or abnormal periosteal reaction. There are a couple of corticated osseous densities anterior tibial at the tibial tubercle at the patellar tendon insertion which are chronic. There is no soft tissue abnormality. XR/XR foot LT 2V IMPRESSION: 1. Left foot. No acute abnormality. 2. Left leg. No acute abnormality.
[2020-04-07 16:46] VITALS: BP 175/89; PULSE 106; RESP 18; TEMP 36.9; O2SAT 100; BMI 27.1
== END 2020-04-07 20:53 | disposition left against medical advice (07) ==
LOC: HO.ED 20:53
PROVIDERS: Emergency Provider Emergency Medicine; PCP Family Medicine
DX: M79.672 Pain in left foot (principal); E11.69 Type 2 diabetes mellitus with other specified complication; S81.802A Unspecified open wound, left lower leg, initial encounter; X58.XXXA Exposure to other specified factors, initial encounter; I10 Essential (primary) hypertension; F17.210 Nicotine dependence, cigarettes, uncomplicated; Y93.9 Activity, unspecified; Y92.9 Unspecified place or not applicable; Y99.9 Unspecified external cause status
CPT/HCPCS: 73590; 73620; 99282; 99283

== ENCOUNTER 2020-04-10 12:43 | Outpatient (RCR) | payer MEDICAID, SELFPAY | END 2020-06-18 11:25 | disposition home or self-care (01) | LOC: HO.WCC 12:43 | PROVIDERS: Visit Provider Physician Assistant | DX: E11.622 Type 2 diabetes mellitus with other skin ulcer (principal); L97.211 Non-pressure chronic ulcer of right calf limited to breakdown of skin; E11.51 Type 2 diabetes mellitus with diabetic peripheral angiopathy without gangrene; E11.65 Type 2 diabetes mellitus with hyperglycemia; Z79.4 Long term (current) use of insulin; T24.231D Burn of second degree of right lower leg, subsequent encounter; T31.0 Burns involving less than 10% of body surface; L53.9 Erythematous condition, unspecified; F17.210 Nicotine dependence, cigarettes, uncomplicated; Z71.6 Tobacco abuse counseling | CPT/HCPCS: 99212; 99213 ==

== ENCOUNTER 2020-04-23 13:34 | Outpatient (REF) | payer MEDICAID, SELFPAY ==
--- NOTE | ~2020-04-23 | US_ITS ---
EXAMINATION: LEFT LOWER EXTREMITY DUPLEX ARTERIAL EXAMINATION CLINICAL INFORMATION: PVD COMPARISON: None TECHNIQUE: Real-time ultrasound and Doppler techniques (integrating B-mode 2D vascular images, Doppler spectral analysis and color flow Doppler imaging) were utilized to interrogate the left lower extremity. FINDINGS: Left common femoral artery has a monophasic waveform suggestive of hemodynamically significant inflow abnormality. Peak systolic velocity is 96 cm/s. The profunda femoral artery has a monophasic waveform with peak systolic velocity of 116 cm/s. There is noted to be a stenosis with calcified plaque within the proximal superficial femoral artery which is hemodynamically significant with a monophasic waveform with spectral broadening and peak systolic velocity of 105 cm/s. The left mid superficial femoral artery, versus a collateral with the superficial femoral artery being occluded, has a monophasic waveform with prominent spectral broadening. Peak systolic velocity is 354 cm/s. The mid to distal superficial femoral artery appears to be occluded with a collateral in its distal aspect seen to reconstitute the distal superficial femoral artery. Distal to the occlusion there is a monophasic waveform with slow upstroke and monophasic waveform with spectral broadening and peak systolic velocity of 39 cm/s. The popliteal artery is diseased and has a very blunted waveform with spectral broadening and peak systolic velocity of 26 cm/s. The posterior tibial artery is severely diseased with blunted waveform which is monophasic with peak systolic velocity of 14 cm/s. The peroneal artery is diseased with severely blunted waveform with spectral broadening and peak systolic velocity of 20 cm/s. US/US arterial duplex LE LT IMPRESSION: Severe peripheral vascular disease of the left lower extremity with inflow stenosis and monophasic waveform within the left common femoral artery and monophasic waveform through the left lower extremity with occlusion of the distal superficial femoral artery with reconstitution of the popliteal artery.
== END 2020-04-23 13:35 | disposition home or self-care (01) ==
LOC: HO.US 13:34
PROVIDERS: Visit Provider Physician Assistant
DX: I73.9 Peripheral vascular disease, unspecified (principal)
CPT/HCPCS: 93926

== ENCOUNTER 2020-05-02 19:34 | Emergency (ER) | payer MEDICAID, SELFPAY ==
[2020-05-02 19:52] VITALS: BP 188/85; PULSE 104; RESP 18; TEMP 36.1; O2SAT 98; BMI 27.1
--- NOTE | 2020-05-02 20:17 | ED.SKABFB ---
HPI - Skin/Abscess/Foreign Bdy General Chief complaint: Skin/Abscess/Foreign Body Stated complaint: foot pain Time Seen by Provider: 05/02/20 20:16 Source: patient Mode of arrival: ambulatory Limitations: no limitations History of Present Illness HPI narrative: Patient diabetic with peripheral neuropathy complaining of redness of toes on her left foot for last month no open wound also has a scab in the left lower leg seen wound clinic and they did a dressing comes here for continuing redness and pain is getting worse. No pus discharge no fever no trauma Related Data Home Medications Medication Instructions Recorded Confirmed metformin 1,000 mg PO DAILY 12/22/19 04/08/20 amitriptyline 50 mg tablet 50 mg PO BEDTIME 01/02/20 04/08/20 aspirin 81 mg tablet,delayed 81 mg PO DAILY 01/02/20 04/08/20 release atorvastatin 80 mg tablet 80 mg PO DAILY 01/02/20 04/08/20 carvedilol 25 mg tablet 25 mg PO BID 01/02/20 04/08/20 docusate sodium 100 mg capsule 100 mg PO DAILY 01/02/20 04/08/20 ergocalciferol (vitamin D2) 50 mcg 50 mcg PO DAILY 01/02/20 04/08/20 (2,000 unit) tablet escitalopram oxalate 20 mg tablet 20 mg PO DAILY 01/02/20 04/08/20 ferrous sulfate 325 mg (65 mg 325 mg PO TID 01/02/20 04/08/20 iron) tablet fluticasone propionate 110 1 puff INHALATION Q12H 01/02/20 04/08/20 mcg/actuation HFA aerosol inhaler fluticasone propionate 50 1 spray INTRANASAL Q12H 01/02/20 04/08/20 mcg/actuation nasal spray,suspension gabapentin 800 mg tablet 800 mg PO TID 01/02/20 04/08/20 hydralazine 100 mg tablet 100 mg PO BID 01/02/20 04/08/20 insulin degludec 100 unit/mL (3 10 unit SUBCUT DAILY 01/02/20 04/08/20 mL) subcutaneous pen insulin lispro 100 unit/mL 1 sliding scale dose SUBCUT 01/02/20 04/08/20 subcutaneous cartridge USEASDIRECTD lisinopril 40 mg tablet 40 mg PO DAILY 01/02/20 04/08/20 mirtazapine 45 mg tablet 45 mg PO DAILY 01/02/20 04/08/20 multivitamin 1 tab PO DAILY 01/02/20 04/08/20 nitroglycerin 0.4 mg sublingual 0.4 mg SUBLINGUAL Q5M PRN 01/02/20 04/08/20 tablet oxycodone 5 mg capsule 5 mg PO Q8H PRN 01/02/20 04/08/20 pioglitazone 45 mg tablet 45 mg PO DAILY 01/02/20 04/08/20 pantoprazole 40 mg tablet,delayed 40 mg PO BID tab 03/03/20 04/08/20 release Previous Rx's Medication Instructions Recorded hydrochlorothiazide 25 mg tablet 25 mg PO DAILY #60 tab 01/02/20 dicyclomine 20 mg PO TID PRN #30 tab 01/16/20 ondansetron 4 mg PO Q8H PRN #20 tab 01/16/20 polyethylene glycol 3350 [Miralax] 17 g PO DAILY PRN #119 g 01/16/20 cephalexin [Keflex] 500 mg PO QID 5 Days #20 cap 03/02/20 simethicone 125 mg chewable tablet 125 mg PO QID 30 Days #120 tab 03/03/20 cephalexin [Keflex] 500 mg PO Q6H 10 Days #40 cap 03/09/20 doxycycline monohydrate 100 mg PO BID 10 Days #20 cap 03/09/20 ibuprofen 800 mg PO Q8H PRN #14 tab 03/09/20 prednisone 40 mg PO DAILY 5 Days #10 tab 03/09/20 cephalexin 500 mg PO BID 10 Days #20 cap 05/02/20 doxycycline hyclate 100 mg PO BID #20 cap 05/02/20 mupirocin 1 appl TOPICAL BID #22 g 05/02/20 Allergies Allergy/AdvReac Type Severity Reaction Status Date / Time latex [LATEX] Allergy Unknown RASH Verified 04/07/20 16:45 naproxen [From NAPROSYN] Allergy Unknown TACHYCARDIA Verified 04/07/20 16:45 Review of Systems Review of Systems: Constitutional : No Weight loss, No Fever, No Chills ENT/Mouth : No sore throat, No Rhinorrhea Eyes: No Eye Pain, No Swelling Cardiovascular : No Chest Pain, no palpitations Respiratory : No Cough, No Sputum, no shortness of breath Gastrointestinal : no Nausea, No Vomiting, No Diarrhea, No abdominal Pain, no black stools Genitourinary : No Dysuria, No Urinary Frequency Musculoskeletal : No joint pain, No Myalgias, No Joint Swelling Skin : No Skin Lesions, + rash Neuro : No Weakness, No Numbness, No Dizziness, No Headache Psych : No Anxiety/Panic, No Depression Heme/Lymph: No Bruising, No Lymphadenopathy Endocrine : No Polyuria, No Polydipsia All other systems reviewed and are negative [facility] Past Medical History Medical History Arthritis Asthma CAD (coronary artery disease) Cyst (solitary) of breast Diabetes H. pylori infection HTN (hypertension) Kidney calculi Surgical History History of breast surgery History of cardiac cath History of esophagogastroduodenoscopy (EGD) Hx of colonoscopy Family History Family History Mother Diabetes Liver cancer Social History Social History Alcohol intake: current Alcohol intake frequency: does not drink Smoking Status: Current every day smoker Tobacco Type: Cigarette Cigarettes Per Day: 4 Advance Directives: No Advance Directives Information Provided: No Physical Exam Vital Signs: Vital Signs: Last Vital Signs Temp 97.3 F 05/02/20 21:28 Pulse 86 05/02/20 21:28 Resp 18 05/02/20 21:28 BP 170/86 H 05/02/20 21:28 Pulse Ox 98 05/02/20 21:28 Body Mass Index 27.1 Const: General: healthy appearing and comfortable HENMT: Head: Yes normocephalic and Yes atraumatic Eyes: General: appearance normal, both eyes and all related structures Resp: Effort & Inspection: normal respiratory effort Auscultation: clear to auscultation bilaterally Cardio: Palpation: normal PMI Rate: regular rate Rhythm: regular rhythm Heart sounds: S1 normal heart sound present and S2 normal heart sound present GI: Inspection: Yes normal to inspection Palpation (GI): Soft to palpation and nontender Skin: Other: Redness of left 4th and 5th toe without any open wounds Neuro: General: gait normal and no focal motor deficits Extrem: Ankle/foot/toe images: 1. Fourth and 5th left toe slight redness no open wound no bony tenderness or deformity Neurovascular intact 2. Small quarter-size scab no signs of deep infection or surrounding erythema MDM - Skin/Abscess/Foreign Bdy MDM Narrative Medical decision making narrative: Patient with chronic diabetic neuropathy with slight redness of toes which is also chronic. skin was clean with Betadine and peroxide and Xeroform dressing was applied patient vice to take doxycycline and apply Bactroban ointment and follow up with wound Clinic Discharge Plan Discharge Clinical Impression: Wound cellulitis Patient Disposition: Home, Self-Care Instructions: Chronic Wounds (ED) Additional Instructions: Local care as advised take antibiotic as prescribed apply ointment twice daily and follow-up with your PCP Prescriptions: New doxycycline hyclate 100 mg capsule 100 mg PO BID Qty: 20 RF: 0 cephalexin 500 mg capsule 500 mg PO BID 10 Days Qty: 20 RF: 0 mupirocin 2 % ointment 1 appl topical BID Qty: 22 RF: 0 No Action ibuprofen 800 mg tablet 800 mg PO Q8H PRN (Reason: pain) Qty: 14 RF: 0 prednisone 20 mg tablet 40 mg PO DAILY 5 Days Qty: 10 RF: 0 doxycycline monohydrate 100 mg capsule 100 mg PO BID 10 Days Qty: 20 RF: 0 cephalexin [Keflex] 500 mg capsule 500 mg PO Q6H 10 Days Qty: 40 RF: 0 metformin 1,000 mg Tablet 1,000 mg PO DAILY RF: 0 ondansetron 4 mg tablet,disintegrating 4 mg PO Q8H PRN (Reason: nausea and vomiting) Qty: 20 RF: 0 dicyclomine 20 mg tablet 20 mg PO TID PRN (Reason: abdominal pain) Qty: 30 RF: 0 polyethylene glycol 3350 [Miralax] 17 gram/dose powder 17 g PO DAILY PRN (Reason: constipation) Qty: 119 RF: 0 cephalexin [Keflex] 500 mg capsule 500 mg PO QID 5 Days Qty: 20 RF: 0 carvedilol [Coreg] 25 mg tablet 25 mg PO BID RF: 0 nitroglycerin 0.4 mg tablet, sublingual 0.4 mg sublingual Q5M PRN (Reason: Chest Pain) RF: 0 multivitamin Tablet 1 tab PO DAILY RF: 0 ergocalciferol (vitamin D2) 50 mcg (2,000 unit) tablet 50 mcg PO DAILY RF: 0 lisinopril 40 mg tablet 40 mg PO DAILY RF: 0 gabapentin 800 mg tablet 800 mg PO TID RF: 0 hydralazine 100 mg tablet 100 mg PO BID RF: 0 fluticasone propionate 50 mcg/actuation spray,suspension 1 spray intranasal Q12H RF: 0 Flovent HFA 110 mcg/actuation HFA aerosol inhaler 1 puff inhalation Q12H RF: 0 aspirin [Adult Low Dose Aspirin] 81 mg tablet,delayed release (DR/EC) 81 mg PO DAILY RF: 0 ferrous sulfate 325 mg (65 mg iron) tablet 325 mg PO TID RF: 0 pioglitazone [Actos] 45 mg tablet 45 mg PO DAILY RF: 0 escitalopram oxalate [Lexapro] 20 mg tablet 20 mg PO DAILY RF: 0 mirtazapine 45 mg tablet 45 mg PO DAILY RF: 0 amitriptyline 50 mg tablet 50 mg PO BEDTIME RF: 0 atorvastatin [Lipitor] 80 mg tablet 80 mg PO DAILY RF: 0 docusate sodium [Colace] 100 mg capsule 100 mg PO DAILY RF: 0 Tresiba FlexTouch U-100 100 unit/mL (3 mL) insulin pen 10 unit subcut DAILY RF: 0 Humalog U-100 Insulin 100 unit/mL cartridge 1 sliding scale dose subcut USEASDIRECTD RF: 0 oxycodone 5 mg capsule 5 mg PO Q8H PRN (Reason: Pain) RF: 0 hydrochlorothiazide 25 mg tablet 25 mg PO DAILY Qty: 60 RF: 3 pantoprazole [Protonix] 40 mg tablet,delayed release (DR/EC) 40 mg PO BID RF: 0 simethicone [Gas Relief (simethicone)] 125 mg tablet,chewable 125 mg PO QID 30 Days Qty: 120 RF: 3 Interventions: ED Discharge Assessment Last Done: 05/02/20 21:30 Discharge Date/Time: 05/02/20 21:31
[2020-05-02] MEDS: cephALEXin 500 MG CAPSULE PO (21:18)
[2020-05-02 21:28] VITALS: BP 170/86; PULSE 86; RESP 18; TEMP 36.3; O2SAT 98
== END 2020-05-02 21:31 | disposition home or self-care (01) ==
PROVIDERS: Emergency Provider Internal Medicine; PCP Family Medicine
DX: L03.032 Cellulitis of left toe (principal); M79.672 Pain in left foot; E11.40 Type 2 diabetes mellitus with diabetic neuropathy, unspecified; I10 Essential (primary) hypertension; F17.210 Nicotine dependence, cigarettes, uncomplicated; Z79.82 Long term (current) use of aspirin; Z79.4 Long term (current) use of insulin
CPT/HCPCS: 99283; 99284

== ENCOUNTER 2020-05-08 21:55 | Inpatient (IN) | payer MEDICAID, SELFPAY ==
--- NOTE | ~2020-05-08 | US_ITS ---
EXAMINATION: ULTRASOUND ARTERIAL DUPLEX LOWER EXTREMITY BILATERAL CLINICAL INFORMATION: Nonhealing ulcers COMPARISON: Left lower extremity arterial duplex imaging 04/23/2020 TECHNIQUE: Grayscale, color and spectral Doppler imaging was obtained of the deep arterial system of both lower extremities. FINDINGS: Right lower extremity: Moderate to severe diffuse atherosclerotic disease. The right common femoral artery and proximal portion of the right superficial femoral artery are patent but demonstrate primarily monophasic waveforms suggesting inflow disease. There is complete occlusion within the mid and distal portion of the right superficial femoral artery with reconstitution of the right popliteal artery. The right posterior tibial and peroneal arteries are patent but demonstrate decreased velocities. Left lower extremity: Moderate to severe diffuse atherosclerotic disease. The left common femoral artery is patent although demonstrate primarily monophasic waveforms consistent with inflow disease. There is complete occlusion throughout the entirety of the left superficial femoral artery. There is reconstitution of the left popliteal artery which demonstrates subtle flow. The left posterior tibial and peroneal arteries are severely diseased but appear patent. US/US arterial duplex LE BI IMPRESSION: 1. Primarily monophasic waveforms throughout both lower extremity suggesting inflow disease. 2. Complete occlusion of the right mid and distal superficial femoral artery with reconstitution of the popliteal artery and deep arteries of the calf. 3. Complete occlusion of the entire left superficial femoral artery with reconstitution of the popliteal artery and deep arteries of the calf. This Critical Result was discussed with Dr. Mosher at 10:44 AM on 05/09/2020 and it was ascertained that the content and urgency of the report was understood at the time of direct communication.
--- NOTE | ~2020-05-08 | MR_ITS ---
Examination: MR foot LT wo/w con Indication: r/o osteo Comparison: 05/08/2020 plain films. Technique: Multiple routine MRI sequences through the forefoot were obtained on a high-field 1.5 Yana MRI. Pre and postcontrast images were evaluated. 6.5 mL of Gadavist intervenous contrast was utilized. Findings: Unfortunately the patient was in pain during the procedure resulting in significant motion artifact on all sequences. This limits evaluation. There is diffuse soft tissue swelling more so along the lateral aspect of the forefoot and midfoot. There is subtle bone marrow edema within the fifth proximal, middle, and distal phalanges this area is partially obscured by inhomogeneous fat saturation on the postcontrast images. There is a suggestion however of subtle postcontrast enhancement within the fifth proximal to distal phalanges when directly comparing the pre and postcontrast fat-saturated images. Subtle osteomyelitis would be difficult to exclude in this setting. No acute fracture or dislocation. No discrete drainable collection. MR/MR foot LT wo/w con Impression: Patient motion limits evaluation. There does appear to be subtle bone marrow edema and postcontrast enhancement within the fifth proximal, middle, and distal phalanges with associated soft tissue swelling in this region. In the acute setting, osteomyelitis would be suspected.
--- NOTE | ~2020-05-08 | XR_ITS ---
EXAMINATION: XR FOOT, LEFT CLINICAL INFORMATION: Osteomyelitis COMPARISON: None TECHNIQUE: AP, lateral, and oblique views of the left foot. FINDINGS: Aside from some calcaneal spurring, bones and soft tissues are normal. No fracture. Alignment is anatomic. Joint spaces are maintained. No bony destructive lesions are seen to suggest the presence of osteomyelitis. XR/XR foot LT 2V IMPRESSION: No evidence of osteomyelitis.
--- NOTE | ~2020-05-08 | XR_ITS ---
EXAMINATION: XR CHEST CLINICAL INFORMATION: Pneumonia COMPARISON: CT chest 01/20/2020 TECHNIQUE: Frontal view of the chest was obtained. FINDINGS: The heart and pulmonary vessels appear normal. A single calcified granulomas noted in the left midlung. No infiltrates effusions or suspicious lung masses are seen. XR/XR chest 1V IMPRESSION: Unremarkable examination.
[2020-05-08 21:59] VITALS: BP 200/109; PULSE 112; O2SAT 99
[2020-05-08 22:17] VITALS: BP 185/82; PULSE 103; RESP 20; TEMP 37.1; O2SAT 98; BMI 27.1
--- NOTE | 2020-05-08 22:27 | ED.WOUNDLAC ---
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 Non insulin-dependent diabetic patient presented with pain in the left foot for many weeks, patient had infection in 4th and 5th left toes and been treated with antibiotic for the last few weeks by her PCP, presented today with worsening of the pain and left 4th and 5th toes despite antibiotic. Patient declines subjective fever but been having chills at nighttime, decline trauma to left foot. Related Data Home Medications Medication Instructions Recorded Confirmed metformin 1,000 mg PO DAILY 12/22/19 04/08/20 amitriptyline 50 mg tablet 50 mg PO BEDTIME 01/02/20 04/08/20 aspirin 81 mg tablet,delayed 81 mg PO DAILY 01/02/20 04/08/20 release atorvastatin 80 mg tablet 80 mg PO DAILY 01/02/20 04/08/20 carvedilol 25 mg tablet 25 mg PO BID 01/02/20 04/08/20 docusate sodium 100 mg capsule 100 mg PO DAILY 01/02/20 04/08/20 ergocalciferol (vitamin D2) 50 mcg 50 mcg PO DAILY 01/02/20 04/08/20 (2,000 unit) tablet escitalopram oxalate 20 mg tablet 20 mg PO DAILY 01/02/20 04/08/20 ferrous sulfate 325 mg (65 mg 325 mg PO TID 01/02/20 04/08/20 iron) tablet fluticasone propionate 110 1 puff INHALATION Q12H 01/02/20 04/08/20 mcg/actuation HFA aerosol inhaler fluticasone propionate 50 1 spray INTRANASAL Q12H 01/02/20 04/08/20 mcg/actuation nasal spray,suspension gabapentin 800 mg tablet 800 mg PO TID 01/02/20 04/08/20 hydralazine 100 mg tablet 100 mg PO BID 01/02/20 04/08/20 insulin degludec 100 unit/mL (3 10 unit SUBCUT DAILY 01/02/20 04/08/20 mL) subcutaneous pen insulin lispro 100 unit/mL 1 sliding scale dose SUBCUT 01/02/20 04/08/20 subcutaneous cartridge USEASDIRECTD lisinopril 40 mg tablet 40 mg PO DAILY 01/02/20 04/08/20 mirtazapine 45 mg tablet 45 mg PO DAILY 01/02/20 04/08/20 multivitamin 1 tab PO DAILY 01/02/20 04/08/20 nitroglycerin 0.4 mg sublingual 0.4 mg SUBLINGUAL Q5M PRN 01/02/20 04/08/20 tablet oxycodone 5 mg capsule 5 mg PO Q8H PRN 01/02/20 04/08/20 pioglitazone 45 mg tablet 45 mg PO DAILY 01/02/20 04/08/20 pantoprazole 40 mg tablet,delayed 40 mg PO BID tab 03/03/20 04/08/20 release Previous Rx's Medication Instructions Recorded hydrochlorothiazide 25 mg tablet 25 mg PO DAILY #60 tab 01/02/20 dicyclomine 20 mg PO TID PRN #30 tab 01/16/20 ondansetron 4 mg PO Q8H PRN #20 tab 01/16/20 polyethylene glycol 3350 [Miralax] 17 g PO DAILY PRN #119 g 01/16/20 cephalexin [Keflex] 500 mg PO QID 5 Days #20 cap 03/02/20 simethicone 125 mg chewable tablet 125 mg PO QID 30 Days #120 tab 03/03/20 cephalexin [Keflex] 500 mg PO Q6H 10 Days #40 cap 03/09/20 doxycycline monohydrate 100 mg PO BID 10 Days #20 cap 03/09/20 ibuprofen 800 mg PO Q8H PRN #14 tab 03/09/20 prednisone 40 mg PO DAILY 5 Days #10 tab 03/09/20 cephalexin 500 mg PO BID 10 Days #20 cap 05/02/20 doxycycline hyclate 100 mg PO BID #20 cap 05/02/20 mupirocin 1 appl TOPICAL BID #22 g 05/02/20 Allergies Allergy/AdvReac Type Severity Reaction Status Date / Time latex [LATEX] Allergy Unknown RASH Verified 05/08/20 22:16 naproxen [From NAPROSYN] Allergy Unknown TACHYCARDIA Verified 05/08/20 22:16 Review of Systems Review of Systems: All other systems are reviewed and are negative Constitutional: Reports as per HPI and Reports no additional constitutional complaints Eyes: Reports as per HPI and Reports no additional eye complaints Reports system reviewed and no additional complaints, except as documented Cardiovascular: Reports as per HPI and Reports no additional cardiovascular complaints Respiratory: Reports as per HPI and Reports no additional respiratory complaints Gastrointestinal: Reports as per HPI and Reports no additional gastrointestinal complaints Genitourinary: Reports no additional female genitourinary complaints Musculoskeletal: Reports no additional musculoskeletal complaints Skin/Breast: Reports system reviewed and no additional complaints, except as docu Psychiatric: Reports no additional psychiatric complaints Endocrine: Reports no additional endocrine complaints Hematologic/Lymphatic: Reports no additional hematologic/lymphatic complaints Allergic/Immunologic: Reports no additional allergic/immunologic complaints Reports system reviewed and no additional complaints, except as documented and Reports Abnormal speech present [facility] Past Medical History Medical History Arthritis Asthma CAD (coronary artery disease) Cyst (solitary) of breast Diabetes H. pylori infection HTN (hypertension) Kidney calculi Surgical History History of breast surgery History of cardiac cath History of esophagogastroduodenoscopy (EGD) Hx of colonoscopy Family History Family History Mother Diabetes Liver cancer Social History Social History Alcohol intake: current Alcohol intake frequency: does not drink Smoking Status: Current every day smoker Tobacco Type: Cigarette Cigarettes Per Day: 4 Advance Directives: No Advance Directives Information Provided: No Physical Exam Vital Signs: Vital Signs: Last Vital Signs Temp 97.9 F 05/08/20 22:55 Pulse 102 H 05/08/20 22:55 Resp 16 05/08/20 22:55 BP 166/86 H 05/08/20 22:55 Pulse Ox 100 05/08/20 22:55 Body Mass Index 27.1 Vital signs have been reviewed as appeared to be correct. Blood pressure elevated. Heart rate elevated. Respiration rate normal. Temperature normal. Oxygen saturation normal. Appearance: Alert. Oriented X3. No acute distress. Head: Normal external exam. Normocephalic. Atraumatic. No Benitez signs noted. No raccoon eyes noted Eyes: PERRLA. EOMI. Conjunctiva and sclera normal. Eyelids normal. ENT: TM's Normal. Pharynx normal. Uvula midline. Moist mucous membranes. No trismus noted. No drooling noted. No muffled voice noted. Neck: Normal inspection. Neck supple. FROM. No adenopathy. Thyroid Normal. No meningeal signs. No neck mass noted. CVS: Normal heart rate and rhythm. Heart sound normal. No murmurs noted. Pulses normal throughout. Respiratory: No respiratory distress. Painless inspiration. Breath sounds normal. No wheezes/rales/rhonchi noted. Chest nontender. No accessory muscle usage noted or decreased air movement noted. Abdomen: Soft and nontender. Bowel sounds normal in all 4 quadrants. No distention noted. No organomegaly noted. No visible injury noted. Back: No CVA tenderness. Full range of motion noted. Skin: Skin warm and dry. Normal skin color. Normal skin turgor. No rashes/lesions/lacerations noted. Extremities: Left 4th and 5th toe are red, swollen, tender to touch, and hot to touch. No discharge or abscess. Neuro: Oriented X 3. No motor deficit. No sensory deficit. Reflexes normal. Course Course Course Narrative: Assessment and plan. 59-year-old female diabetic with history of left 4th and5th toe cellulitis not responding to oral antibiotic, no SIRS criteria met, no osteomyelitis. Patient is complaining of severe pain. Patient received IV antibiotic in the emergency department and analgesia. MDM - Wound/Laceration Lab Data Attestation: I reviewed the patient's lab results. Result diagrams: 05/08/20 22:51 05/08/20 22:51 Labs: Lab Results 05/08/20 05/08/20 05/08/20 Range/Units 22:51 22:51 22:51 WBC 8.6 (4.8-10.8) X10*3/uL RBC 4.50 (4.20-5.50) X10*6/uL Hgb 13.3 (12.0-16.0) g/dl Hct 40.4 (37-47) % MCV 89.8 (80-98) fL MCH 29.6 (27.0-33.0) pg MCHC 32.9 (31.0-35.0) g/dl RDW 13.1 (11.0-16.0) % Plt Count 315 (160-400) X10*3/uL MPV 9.4 (9.4-12.3) fL Immature Gran % (Auto) 0.2 (0.0-0.4) % Neut % (Auto) 62.9 (45-73) % Lymph % (Auto) 28.6 (20-40) % [place] % (Auto) 5.1 (2-11) % Eos % (Auto) 2.7 (0-4) % Baso % (Auto) 0.5 (0-2) % Lymph # (Auto) 2.5 (1.2-4.9) X10*3/uL [place] # (Auto) 0.4 (0.1-1.2) X10*3/uL Eos # (Auto) 0.2 (0.0-0.4) X10*3/uL Baso # (Auto) 0.0 (0.0-0.2) X10*3/uL Abs Immat Gran (auto) 0.02 (0.00-0.03) X10*3/uL Absolute Neuts (auto) 5.4 (2.0-8.3) X10*3/uL Absolute Nucleated RBC 0.000 (0.0-0.012) X10*3/uL Nucleated RBC % (auto) 0.0 (0.0-0.2) /100WBC Sodium 137 (135-145) mmol/L Potassium 4.2 (3.3-5.1) mmol/L Chloride 100 (96-108) mmol/L Carbon Dioxide 27 (22-29) mmol/L Anion Gap 14 (12-20) BUN 13 (9-16) mg/dL Creatinine 0.75 (0.5-1.4) mg/dL Estim Creat Clear Calc 73.4 Estimated GFR > 60 Random Glucose 320 H (60-115) mg/dL Lactic Acid 1.5 (0.5-2.0) mmol/L Calcium 9.0 (8.4-10.2) mg/dL Total Bilirubin 0.7 (0.0-1.0) mg/dL Direct Bilirubin 0.2 (0.0-0.5) mg/dL AST 8 (5-31) U/L ALT 9 (0-31) U/L Alkaline Phosphatase 84 (39-117) U/L Total Protein 6.1 L (6.5-8.0) g/dL Albumin 3.8 (3.5-5.0) g/dL Lipase 32 (8-78) U/L Imaging Data Left foot x-ray: Radiologist's impression: No evidence of osteomyelitis. Chest x-ray: Radiologist's impression: Unremarkable examination. Discharge Plan Discharge Clinical Impression: Infection of toe, Uncontrolled diabetes mellitus Patient Disposition: Admitted As Inpatient
[2020-05-08 22:55] VITALS: BP 166/86; PULSE 102; RESP 16; TEMP 36.6; O2SAT 100
[2020-05-08] MEDS: Piperacillin Sodium/Tazobactam 3.375 GM in 0.9 % Sodium Chloride 50 ML IV (22:58)
[2020-05-08] MEDS: Morphine Sulfate 2 MG/ML CARTRIDGE IVPUSH (22:58)
[2020-05-08] MEDS: 0.9 % Sodium Chloride 1,000 ML 999 ML IVCONT (23:00)
--- NOTE | 2020-05-08 23:02 | PC.NURSE ---
power technician at bedside obtaining all labs including BCX x2 and lactic. IV established, pt medicated per APR. VSS at this time. Call knox within reach, continue to monitor.
[2020-05-08 23:05] LABS: MANUAL DIFF FLAG NO
[2020-05-08 23:07] LABS: Basophils Percent Auto 0.5 % (0-2); Eosinophils Absolute Auto 0.2 X10*3/uL (0.0-0.4); Eosinophils Percent Auto 2.7 % (0-4); Hematocrit 40.4 % (37-47); Hemoglobin 13.3 g/dl (12.0-16.0); Imm Gran Abs Auto 0.02 X10*3/uL (0.00-0.03); Imm Gran Pct Auto 0.2 % (0.0-0.4); Lymphocytes Absolute Auto 2.5 X10*3/uL (1.2-4.9); Lymphocytes Percent Auto 28.6 % (20-40); Mean Corpuscular HGB Conc 32.9 g/dl (31.0-35.0); Mean Corpuscular Hemoglobin 29.6 pg (27.0-33.0); Mean Corpuscular Volume 89.8 fL (80-98); Mean Platelet Volume 9.4 fL (9.4-12.3); Monocytes Absolute Auto 0.4 X10*3/uL (0.1-1.2); Monocytes Percent Auto 5.1 % (2-11); Neutrophils Absolute Auto 5.4 X10*3/uL (2.0-8.3); Neutrophils Percent Auto 62.9 % (45-73); Platelet Count 315 X10*3/uL (160-400); Red Cell Distribution Width 13.1 % (11.0-16.0); White Blood Count 8.6 X10*3/uL (4.8-10.8)
[2020-05-08 23:23] LABS: Lactic Acid 1.5 mmol/L (0.5-2.0)
[2020-05-08] MEDS: vancomycin HCL 1,000 MG in 0.9 % Sodium Chloride 250 ML 270 MG IV (23:23)
--- NOTE | 2020-05-08 23:24 | PC.NURSE ---
Vanco infusing per MAR.
[2020-05-08 23:29] LABS: Alanine Aminotransferase 9 U/L (0-31); Albumin Level 3.8 g/dL (3.5-5.0); Alkaline Phosphatase 84 U/L (39-117); Anion Gap 14 (12-20); Aspartate Amino Transferase 8 U/L (5-31); Bilirubin Direct 0.2 mg/dL (0.0-0.5); Bilirubin Total 0.7 mg/dL (0.0-1.0); Blood Urea Nitrogen 13 mg/dL (9-16); Carbon Dioxide 27 mmol/L (22-29); Chloride 100 mmol/L (96-108); Creatinine Clr Calc Pharmacy 73.4; Estimated Glomerular Filt Rate > 60; Glucose Random 320 mg/dL (60-115); Lipase 32 U/L (8-78); Potassium 4.2 mmol/L (3.3-5.1); Sodium 137 mmol/L (135-145); Total Protein 6.1 g/dL (6.5-8.0)
[2020-05-09] VITALS (8 sets, daily range): BP systolic 133–179; BP diastolic 52–81; PULSE 67–96; RESP 14–18; TEMP 36.1–36.7; O2SAT 95–97
[2020-05-09 00:21] LABS: COVID-19 Test Negative (Negative)
[2020-05-09] MEDS: Morphine Sulfate 2 MG/ML CARTRIDGE IVPUSH (00:46)
--- NOTE | 2020-05-09 00:48 | PC.NURSE ---
Pt reports no relief of pain after Morphine. aware. Pt again medicated with Morphine per APR. VSS.
--- NOTE | 2020-05-09 01:25 | PC.NURSE ---
This RN at bedside with rn community to complete pts med rec. Per pt, her medications are prepackaged and she is not familiar with the names of her medications. Pt stating to this RN to call Ekta Elliott [phone] who may know which medications she is taking.
--- NOTE | 2020-05-09 01:49 | PC.NURSE ---
Med Rec complete, hospitalist at bedside for primary eval.
--- NOTE | 2020-05-09 05:32 | P.HPHOSP_ITS ---
History of Present Illness Date of Service: 05/09/20 Chief Complaint: Diabetic foot ulcer This is a 59-year-old female with past medical history of DM, CAD, HTN, asthma, arthritis, who presents to the hospital with complaints of left foot toe ulcers as well as nonhealing ulcer in her calf. . Was seen in wound clinic today and and she was asked to come to the ED as her wounds are not healing. Patient is also stating that she has painful ulcers in the last 2 digits of her left foot, painful 10/10, swollen, red, and warm, was draining clear liquid, she reports that she is currently on antibiotics with no improvement of her symptoms. No headache, no change in vision, no chest pain, no shortness of breath, no abdominal pain nausea or vomiting, no diarrhea constipation. No weakness numbness or tingling. On arrival to the ED vitals are significant for temp of 98.7?, heart rate of 103, blood pressure of 185/82, respiratory rate of 20, satting 98% on room air. Labs are significant for WBC count of 8.6, hemoglobin of 13.3, sodium of 137, potassium 4.2, labs are otherwise unremarkable. COVID-19 negative, foot x-ray shows no evidence of osteomyelitis. Past medical history as below in coma with patient Review of Systems Review of Systems: Yes all other systems are reviewed and are negative [facility] Medical History Arthritis Asthma CAD (coronary artery disease) Cyst (solitary) of breast Diabetes H. pylori infection HTN (hypertension) Kidney calculi Family History Mother Diabetes Liver cancer Surgical History History of breast surgery History of cardiac cath History of esophagogastroduodenoscopy (EGD) Hx of colonoscopy Social History Alcohol intake: current Alcohol intake frequency: does not drink Smoking Status: Current every day smoker Tobacco Type: Cigarette Cigarettes Per Day: 4 Advance Directives: No Advance Directives Information Provided: No Meds Allergies Allergy/AdvReac Type Severity Reaction Status Date / Time latex [LATEX] Allergy Unknown RASH Verified 05/08/20 22:16 naproxen [From NAPROSYN] Allergy Unknown TACHYCARDIA Verified 05/08/20 22:16 Active Medications: Current Medications Generic Name Dose Route Start Last Admin Trade Name Nabila PRN Reason Stop Dose Admin Acetaminophen 650 mg 05/09/20 05:24 Acetaminophen 325 Mg Tablet PO Q6H PRN Pain, Mild (Pain Scale 1-3) Aspirin 81 mg 05/09/20 09:00 Aspirin Enteric Coated 81 Mg Tablet.Dr PO DAILY [facility] Atorvastatin Calcium 80 mg 05/09/20 09:00 Atorvastatin Calcium 80 Mg Tablet PO DAILY [facility] Carvedilol 25 mg 05/09/20 09:00 Carvedilol 25 Mg Tablet PO BID [facility] Protocol Docusate Sodium 100 mg 05/09/20 05:24 Docusate Sodium 100 Mg Capsule PO DAILY PRN Constipation Escitalopram Oxalate 20 mg 05/09/20 09:00 Escitalopram Oxalate 20 Mg Tablet PO DAILY [facility] Gabapentin 800 mg 05/09/20 09:00 Gabapentin 400 Mg Capsule PO TID [facility] Piperacillin Sod/Tazobactam 50 mls @ 100 mls/hr 05/09/20 05:24 Sod 3.375 gm/ Sodium Chloride IV Q6H [facility] Vancomycin HCl 1,000 mg/ 270 mls @ 270 mls/hr 05/09/20 05:24 Sodium Chloride IV Q24H [facility] Insulin Human Lispro unit 05/09/20 05:24 Insulin Lispro 100 Unit/Ml 3 Ml Vial SUBCUT USEASDIRECTD [facility] Insulin Human Lispro 0 unit 05/09/20 07:30 Insulin Lispro 100 Unit/Ml 3 Ml Vial SUBCUT QIDACHS [facility] Protocol Lisinopril 40 mg 05/09/20 09:00 Lisinopril 40 Mg Tablet PO DAILY [facility] Protocol Mirtazapine 45 mg 05/09/20 09:00 Mirtazapine 7.5 Mg Tablet PO DAILY [facility] Morphine Sulfate 4 mg 05/09/20 05:24 Morphine Sulfate 4 Mg/Ml Cartridge IVPUSH Q4H PRN Pain, Severe (Pain Scale 7-10) Multivitamins/Vitamin C 1 tab 05/09/20 09:00 Multivitamin Tablet PO DAILY [facility] Non-Formulary Medication 10 unit 05/09/20 09:00 Insulin Degludec [Tresiba Flextouch U-100] SUBCUT DAILY [facility] Non-Formulary Medication 40 mg 05/09/20 09:00 Pantoprazole [Protonix] PO DAILY [facility] Ondansetron HCl 4 mg 05/09/20 05:24 Ondansetron Hcl 4 Mg/2 Ml Vial IVPUSH Q8H PRN Nausea and Vomiting Oxycodone HCl 5 mg 05/09/20 05:24 Oxycodone Hcl Immed Release 5 Mg Tablet PO NEEDED PRN Pain Pharmacy Consult 1 each 05/08/20 22:17 Consult Rx Perform Med Rec MISCELLANE ONCE PRN Consult order Pharmacy Consult 1 each 05/09/20 05:24 Consult Rx Vancomycin Dosing MISCELLANE DAILY PRN Consult order Sodium Chloride 3 ml 05/09/20 08:00 0.9 % Sodium Chloride Flush 3 Ml Syringe [facility] [place] Medications Medication Instructions Recorded Confirmed Last Taken Type metformin 1,000 mg PO BID 12/22/19 05/09/20 05/08/20 08:00 History aspirin 81 mg tablet,delayed 81 mg PO DAILY 01/02/20 05/09/20 05/08/20 08:00 History release atorvastatin 80 mg tablet 80 mg PO DAILY 01/02/20 05/09/20 05/08/20 08:00 History carvedilol 25 mg tablet 25 mg PO BID 01/02/20 05/09/20 05/08/20 20:00 History escitalopram oxalate 20 mg tablet 20 mg PO DAILY 01/02/20 05/09/20 05/08/20 08:00 History ferrous sulfate 325 mg (65 mg 325 mg PO BID 01/02/20 05/09/20 05/08/20 20:00 History iron) tablet gabapentin 800 mg tablet 800 mg PO TID 01/02/20 05/09/20 05/08/20 20:00 History insulin degludec 100 unit/mL (3 10 unit SUBCUT DAILY 01/02/20 05/09/20 Unknown History mL) subcutaneous pen insulin lispro 100 unit/mL 2 sliding scale dose SUBCUT 01/02/20 05/09/20 Unknown History subcutaneous cartridge USEASDIRECTD lisinopril 40 mg tablet 40 mg PO DAILY 01/02/20 05/09/20 05/08/20 08:00 History mirtazapine 45 mg tablet 45 mg PO DAILY 01/02/20 05/09/20 05/08/20 08:00 History multivitamin 1 tab PO DAILY 01/02/20 05/09/20 05/08/20 08:00 History oxycodone 5 mg capsule 5 mg PO NEEDED PRN 01/02/20 05/09/20 Unknown History pioglitazone 45 mg tablet 45 mg PO DAILY 01/02/20 05/09/20 05/07/20 20:00 Histor y pantoprazole 40 mg tablet,delayed 40 mg PO DAILY tab 03/03/20 05/09/20 05/08/20 08:00 History release Physical Exam Vital Signs and Narrative: Vital Signs: Last Vital Signs Temp 97.9 F 05/08/20 22:55 Pulse 75 05/09/20 05:27 Resp 16 05/09/20 05:27 BP 179/73 H 05/09/20 05:27 Pulse Ox 95 05/09/20 05:27 Body Mass Index 27.1 Const: General: cooperative and no acute distress Orientation/consciousness: patient oriented x3 Eyes: General: appearance normal, both eyes and all related structures Resp: Effort & Inspection: normal respiratory effort and able to speak in complete sentences Cardio: Rate: regular rate Rhythm: regular rhythm GI: Palpation (GI): Soft to palpation Auscultation: normal bowel sounds Skin: General skin exam: no rashes or lesions noted Neuro: General: patient oriented x3 Cognition (Neuro): normal cognition Extrem: Other: Left calf ulcer with no erythema, no warmth or drainage, has left foot 4th and 5th digit ulcers as well as erythema, tenderness, warmth and drainage. painful to touch General: Yes no pedal edema Results Labs CBC and Chem 7: 05/08/20 22:51 05/08/20 22:51 Labs: Laboratory Results - last 24 hr 05/08/20 05/08/20 05/08/20 22:51 22:51 22:51 MCV 89.8 MCH 29.6 MCHC 32.9 RDW 13.1 Plt Count 315 MPV 9.4 Immature Gran % (Auto) 0.2 Neut % (Auto) 62.9 Lymph % (Auto) 28.6 [place] % (Auto) 5.1 Eos % (Auto) 2.7 Baso % (Auto) 0.5 Lymph # (Auto) 2.5 [place] # (Auto) 0.4 Eos # (Auto) 0.2 Baso # (Auto) 0.0 Abs Immat Gran (auto) 0.02 Absolute Neuts (auto) 5.4 Absolute Nucleated RBC 0.000 Nucleated RBC % (auto) 0.0 Anion Gap 14 Estim Creat Clear Calc 73.4 Estimated GFR > 60 Random Glucose 320 H Lactic Acid 1.5 Calcium 9.0 Total Bilirubin 0.7 Direct Bilirubin 0.2 AST 8 ALT 9 Alkaline Phosphatase 84 Total Protein 6.1 L Albumin 3.8 Lipase 32 COVID-19 ([facility]) COVID-19 Clin Com 05/08/20 23:57 MCV MCH MCHC RDW Plt Count MPV Immature Gran % (Auto) Neut % (Auto) Lymph % (Auto) [place] % (Auto) Eos % (Auto) Baso % (Auto) Lymph # (Auto) [place] # (Auto) Eos # (Auto) Baso # (Auto) Abs Immat Gran (auto) Absolute Neuts (auto) Absolute Nucleated RBC Nucleated RBC % (auto) Anion Gap Estim Creat Clear Calc Estimated GFR Random Glucose Lactic Acid Calcium Total Bilirubin Direct Bilirubin AST ALT Alkaline Phosphatase Total Protein Albumin Lipase COVID-19 ([facility]) Negative COVID-19 Clin Com See Note Imaging Radiologist's Impressions: Impressions Chest X-Ray 05/08/20 22:23 IMPRESSION: Unremarkable examination. Foot X-Ray 05/08/20 22:23 IMPRESSION: No evidence of osteomyelitis. Assessment and Plan (1) Infection of toe: Status: Acute (2) Diabetic foot ulcer: Status: Acute This is a 59-year-old female who presents to the hospital with complaints of nonhealing ulcers of her left foot. . Sent by wound clinic. # nonhealing diabetic foot ulcer - concerning for osteomyelitis - ESR, CRP pending, has no abnormal lab findings - was on antibiotics for 2 weeks outpatient - will obtain ESR, CRP, started on broad-spectrum antibiotics - MRI of left foot to rule out osteomyelitis - consult infectious disease - will also obtain arterial duplex given nonhealing ulcers - stay general surgery consult # diabetes mellitus - hold antihyperglycemics - continue home insulin - add low-dose sliding scale insulin - diabetic diet # hypertension - will continue carvedilol and lisinopril # CAD - stable - continue aspirin and carvedilol # GERD - continue PPI DVT prophylaxis: Lovenox
--- NOTE | 2020-05-09 05:44 | PC.NURSE ---
This RN calling med surg to give report, per med/surg, unable to take report at this time. Med/surg to call when able.
--- NOTE | 2020-05-09 05:53 | PC.NURSE ---
fire control technician at bedside to obtain 0500 labs.
[2020-05-09] MEDS: Enoxaparin Sodium 40 MG/0.4 ML SYRINGE SUBCUT (06:05)
[2020-05-09] MEDS: Morphine Sulfate 4 MG/ML CARTRIDGE IVPUSH ×2 (06:05→12:26)
[2020-05-09] MEDS: Omeprazole 20 MG CAPSULE.DR PO (06:06)
--- NOTE | 2020-05-09 06:13 | PC.NURSE ---
Pt medicated per APR with AM medications and Morphine for 10/10 pain to left foot. Urine sample obtained and sent, pt ambulating to the bathroom but limping due to pain. VSS at this time.
[2020-05-09 06:21] LABS: C Reactive Protein 1.09 mg/dL (< or = 0.50)
[2020-05-09 06:25] LABS: Glucose Urine UA 500 MG/DL (NEG); Leukocyte Esterase Urine 1+ (NEG); Nitrite Urine NEG (NEG); PH 6.5 (5.0-8.0); Specific Gravity - Urine 1.015 (1.005-1.025); UACC Culture Trigger YES; Urine Blood NEG (NEG); Urine Ketones NEG (NEG); Urine Protein NEG (NEG-TRACE)
[2020-05-09 06:29] LABS: Appearance Urine CLEAR; Color Urine YELLOW
[2020-05-09 06:49] LABS: Bacteria Urine TRACE /LPF; RBC Urine 0 /HPF (0); Squamous Epithelial Cell Urine TRACE /LPF
[2020-05-09 06:55] LABS: Erythrocyte Sedimentation Rate 12 MM/HR (0-20)
[2020-05-09 07:25] LABS: Glucose, Whole Blood 189 mg/dL (60-115)
[2020-05-09] MEDS: Multivitamin TABLET 1 TAB PO (07:48)
[2020-05-09] MEDS: Atorvastatin Calcium 80 MG TABLET PO (07:48)
[2020-05-09] MEDS: Aspirin Enteric Coated 81 MG TABLET.DR PO (07:49)
[2020-05-09] MEDS: Insulin Lispro 100 UNIT/ML 3 ML VIAL SUBCUT ×3 (07:49→17:44)
[2020-05-09] MEDS: Escitalopram Oxalate 20 MG TABLET PO (07:49)
[2020-05-09] MEDS: Gabapentin 400 MG CAPSULE 800 MG PO ×3 (07:49→20:47)
[2020-05-09] MEDS: carvediloL 25 MG TABLET PO ×2 (07:49→20:47)
[2020-05-09] MEDS: Piperacillin Sodium/Tazobactam 3.375 GM in 0.9 % Sodium Chloride 50 ML IV ×3 (07:50→23:15)
[2020-05-09] MEDS: 0.9 % Sodium Chloride Flush 3 ML SYRINGE IVFLUSH ×3 (07:54→23:16)
[2020-05-09] MEDS: lisinopriL 40 MG TABLET PO (08:00)
--- NOTE | 2020-05-09 08:54 | PM.CNGS ---
History of Present Illness Consult details Consult date: 05/09/20 Narrative: Rocío Schmid is a 59-year-old female patient with past history of diabetes mellitus, coronary artery disease, hypertension, asthma, arthritis recently developed left foot ulcers which were being evaluated [facility]. She was sent to the emergency department yesterday after developing severe pain in the foot with increased redness. She also has a ulcer in the lateral left calf which is being evaluated as well. Her pain is mainly in the 4th and 5th toes as well as he will. She denies a significant amount of discharge from the sites. Patient is admitted to the hospitalist service for IV antibiotics and further management. She denies any symptoms in her right foot. Review of Systems Review of Systems: Yes all other systems are reviewed and are negative Constitutional: Constitutional: Denies chills, Denies fever(s) and Denies poor appetite Cardiovascular: Cardiovascular: Denies chest pain, Denies rapid heart rate, Denies pedal edema and Denies palpitations Respiratory: Respiratory: Denies chest congestion, Denies cough and Denies wheezing Gastrointestinal: Gastrointestinal: Reports no additional gastrointestinal complaints Musculoskeletal: Musculoskeletal: Reports as per HPI Integumentary/Breasts: Skin/Breast: Reports as per HPI, Reports new lesions, Reports skin pain, Reports skin ulcer and Reports sores Neurologic: Reports Sensory deficit (Neuro) Endocrine: Endocrine: Denies palpitations Hematologic/Lymphatic: Hematologic/Lymphatic: Denies lymphadenopathy Allergic/Immunologic: Allergic/Immunologic: Denies wheezing [facility] Past Medical History Medical History Arthritis Asthma CAD (coronary artery disease) Cyst (solitary) of breast Diabetes H. pylori infection HTN (hypertension) Kidney calculi Family History Family History Mother Diabetes Liver cancer Surgical History Surgical History History of breast surgery History of cardiac cath History of esophagogastroduodenoscopy (EGD) Hx of colonoscopy Social History Social History Alcohol intake: current Alcohol intake frequency: does not drink Smoking Status: Current every day smoker Tobacco Type: Cigarette Cigarettes Per Day: 4 Advance Directives: No Advance Directives Information Provided: No Meds Allergies Allergy/AdvReac Type Severity Reaction Status Date / Time latex [LATEX] Allergy Unknown RASH Verified 05/08/20 22:16 naproxen [From NAPROSYN] Allergy Unknown TACHYCARDIA Verified 05/08/20 22:16 Active Medications: Current Medications Generic Name Dose Route Start Last Admin Trade Name Freq PRN Reason Stop Dose Admin Acetaminophen 650 mg 05/09/20 05:24 Acetaminophen 325 Mg Tablet PO Q6H PRN Pain, Mild (Pain Scale 1-3) Aspirin 81 mg 05/09/20 09:00 05/09/20 07:49 Aspirin Enteric Coated 81 Mg Tablet.Dr PO 81 mg DAILY [facility] Administration Atorvastatin Calcium 80 mg 05/09/20 09:00 05/09/20 07:48 Atorvastatin Calcium 80 Mg Tablet PO 80 mg DAILY [facility] Administration Carvedilol 25 mg 05/09/20 09:00 05/09/20 07:49 Carvedilol 25 Mg Tablet PO 25 mg BID [facility] Administration Protocol Docusate Sodium 100 mg 05/09/20 05:24 Docusate Sodium 100 Mg Capsule PO DAILY PRN Constipation Enoxaparin Sodium 40 mg 05/09/20 06:00 05/09/20 06:05 Enoxaparin Sodium 40 Mg/0.4 Ml Syringe SUBCUT 40 mg Q24H [facility] Administration Escitalopram Oxalate 20 mg 05/09/20 09:00 05/09/20 07:49 Escitalopram Oxalate 20 Mg Tablet PO 20 mg DAILY [facility] Administration Gabapentin 800 mg 05/09/20 09:00 05/09/20 07:49 Gabapentin 400 Mg Capsule PO 800 mg TID [facility] Administration Piperacillin Sod/Tazobactam 50 mls @ 100 mls/hr 05/09/20 05:24 05/09/20 08:46 Sod 3.375 gm/ Sodium Chloride IV Infused Q6H [facility] Infusion Vancomycin HCl 750 mg/ Sodium 265 mls @ 265 mls/hr 05/09/20 11:00 Chloride IV Q12H [facility] Insulin Glargine 7 unit 05/09/20 09:00 Insulin Glargine,Hum.Rec.Anlog 100 Unit/Ml 10 Ml Vial SUBCUT DAILY [facility] Insulin Human Lispro 0 unit 05/09/20 07:30 05/09/20 07:49 Insulin Lispro 100 Unit/Ml 3 Ml Vial SUBCUT 4 unit QIDACHS [facility] Administration Protocol Lisinopril 40 mg 05/09/20 09:00 05/09/20 08:00 Lisinopril 40 Mg Tablet PO 40 mg DAILY [facility] Administration Protocol Mirtazapine 45 mg 05/09/20 21:00 Mirtazapine 15 Mg Tablet PO BEDTIME [facility] Morphine Sulfate 4 mg 05/09/20 05:24 05/09/20 06:05 Morphine Sulfate 4 Mg/Ml Cartridge IVPUSH 4 mg Q4H PRN Administration Pain, Severe (Pain Scale 7-10) Multivitamins/Vitamin C 1 tab 05/09/20 09:00 05/09/20 07:48 Multivitamin Tablet PO 1 tab DAILY [facility] Administration Omeprazole 20 mg 05/09/20 06:30 05/09/20 06:06 Omeprazole 20 Mg Capsule.Dr PO 20 mg DAILY@0630 [facility] Administration Ondansetron HCl 4 mg 05/09/20 05:24 Ondansetron Hcl 4 Mg/2 Ml Vial IVPUSH Q8H PRN Nausea and Vomiting Oxycodone HCl 5 mg 05/09/20 05:24 Oxycodone Hcl Immed Release 5 Mg Tablet PO Q4H PRN Pain Pharmacy Consult 1 each 05/08/20 22:17 Consult Rx Perform Med Rec MISCELLANE ONCE PRN Consult order Pharmacy Consult 1 each 05/09/20 05:24 Consult Rx Vancomycin Dosing MISCELLANE DAILY PRN Consult order Sodium Chloride 3 ml 05/09/20 08:00 05/09/20 07:54 0.9 % Sodium Chloride Flush 3 Ml Syringe IVFLUSH 3 ml QSHIFT [facility] Administration Home Medications Medication Instructions Recorded Confirmed Last Taken Type metformin 1,000 mg PO BID 12/22/19 05/09/20 05/08/20 08:00 History aspirin 81 mg tablet,delayed 81 mg PO DAILY 01/02/20 05/09/20 05/08/20 08:00 History release atorvastatin 80 mg tablet 80 mg PO DAILY 01/02/20 05/09/20 05/08/20 08:00 History carvedilol 25 mg tablet 25 mg PO BID 01/02/20 05/09/20 05/08/20 20:00 History escitalopram oxalate 20 mg tablet 20 mg PO DAILY 01/02/20 05/09/20 05/08/20 08:00 History ferrous sulfate 325 mg (65 mg 325 mg PO BID 01/02/20 05/09/20 05/08/20 20:00 History iron) tablet gabapentin 800 mg tablet 800 mg PO TID 01/02/20 05/09/20 05/08/20 20:00 History insulin degludec 100 unit/mL (3 10 unit SUBCUT DAILY 01/02/20 05/09/20 Unknown History mL) subcutaneous pen insulin lispro 100 unit/mL 2 sliding scale dose SUBCUT 01/02/20 05/09/20 Unknown History subcutaneous cartridge USEASDIRECTD lisinopril 40 mg tablet 40 mg PO DAILY 01/02/20 05/09/20 05/08/20 08:00 History mirtazapine 45 mg tablet 45 mg PO DAILY 01/02/20 05/09/20 05/08/20 08:00 History multivitamin 1 tab PO DAILY 01/02/20 05/09/20 05/08/20 08:00 History oxycodone 5 mg capsule 5 mg PO NEEDED PRN 01/02/20 05/09/20 Unknown History pioglitazone 45 mg tablet 45 mg PO DAILY 01/02/20 05/09/20 05/07/20 20:00 History pantoprazole 40 mg tablet,delayed 40 mg PO DAILY tab 03/03/20 05/09/20 05/08/20 08:00 History release Physical Exam Vital Signs: Vital Signs: Last Vital Signs Temp 97 F 05/09/20 07:00 Pulse 76 05/09/20 07:00 Resp 18 05/09/20 07:00 BP 170/76 H 05/09/20 07:00 Pulse Ox 97 05/09/20 07:00 Body Mass Index 27.1 Const: General: cooperative, comfortable, no acute distress, well developed, alert and awake HENMT: Head: Yes normocephalic and Yes atraumatic Eyes: Sclerae: sclerae normal EOM: EOMs intact bilaterally Resp: Effort & Inspection: no cough, no stridor and not tachypneic GI: Inspection: Yes normal to inspection Skin: Other: Skin ulceration is noted below and extremities Neuro: Sensory Exam: Sensory deficit (Neuro) Extrem: Ankle/foot/toe images: 1. Left foot: Ulceration between the webspace of the 5th and 4th toe with the toenail rotated in the 5th toe towards the 4th toe 2. Erythema in the lateral heel with tenderness to deep palpation. No evidence of abscess. Results Labs Result diagrams: 05/08/20 22:51 05/08/20 22:51 Labs: Abnormal lab results 05/08/20 05/09/20 05/09/20 Range/Units 22:51 05:52 06:09 POC Glucose (60-115) mg/dL Random Glucose 320 H (60-115) mg/dL C-Reactive Protein 1.09 H (< or = 0.50) mg/dL Total Protein 6.1 L (6.5-8.0) g/dL Urine Glucose (UA) 500 H (NEG) MG/DL Ur Leukocyte Esterase 1+ H (NEG) Urine WBC 5-9 H (0-4) /HPF 05/09/20 Range/Units 07:02 POC Glucose 189 H (60-115) mg/dL Random Glucose (60-115) mg/dL C-Reactive Protein (< or = 0.50) mg/dL Total Protein (6.5-8.0) g/dL Urine Glucose (UA) (NEG) MG/DL Ur Leukocyte Esterase (NEG) Urine WBC (0-4) /HPF Short CBC 05/08/20 Range/Units 22:51 WBC 8.6 (4.8-10.8) X10*3/uL Hgb 13.3 (12.0-16.0) g/dl Hct 40.4 (37-47) % Plt Count 315 (160-400) X10*3/uL BMP 05/08/20 22:51 Sodium 137 Potassium 4.2 Chloride 100 Carbon Dioxide 27 BUN 13 Creatinine 0.75 Calcium 9.0 Liver Function 05/08/20 Range/Units 22:51 Total Bilirubin 0.7 (0.0-1.0) mg/dL Direct Bilirubin 0.2 (0.0-0.5) mg/dL AST 8 (5-31) U/L ALT 9 (0-31) U/L Alkaline Phosphatase 84 (39-117) U/L Albumin 3.8 (3.5-5.0) g/dL Urine 05/09/20 Range/Units 06:09 Urine Color YELLOW Urine Appearance CLEAR Urine pH 6.5 (5.0-8.0) Ur Specific [place] 1.015 (1.005-1.025) Urine Protein NEG (NEG-TRACE) MG/DL Urine Glucose (UA) 500 H (NEG) MG/DL All other labs normal. Assessment and Plan (1) Diabetic foot ulcer: Status: Acute Patient presents with left foot pain and evidence of a superficial skin infection involving the left foot at the 4th and 5th toes as well as the lateral left calf. There is no evidence of underlying abscess or osteomyelitis. Foot x-rays are negative for any bony changes. Findings are suggestive of arterial disease and vascular surgery consult is recommended. Foot wounds were dressed with dry sterile dressings to protect her skin from the toenails and to cushion the surrounding skin. No other surgical intervention is required at this time.
[2020-05-09] MEDS: vancomycin HCL 750 MG in 0.9 % Sodium Chloride 250 ML 265 MG IV ×2 (10:52→23:54)
[2020-05-09] MEDS: oxyCODONE HCl Immed Release 5 MG TABLET PO (10:55)
[2020-05-09] MEDS: Insulin Glargine,Hum.rec.anlog 100 UNIT/ML 10 ML VIAL 7 UNIT SUBCUT (10:56)
[2020-05-09 11:10] LABS: Glucose, Whole Blood 211 mg/dL (60-115)
[2020-05-09 16:32] LABS: Glucose, Whole Blood 185 mg/dL (60-115)
[2020-05-09] MEDS: Mirtazapine 15 MG TABLET 45 MG PO (20:48)
[2020-05-09 20:50] LABS: Glucose, Whole Blood 118 mg/dL (60-115)
--- NOTE | 2020-05-09 21:54 | W.PM.IDCN ---
History of Present Illness Data of Consult Service Date: 05/09/20 Requesting physician: Maria Luisa Mosher Primary Care Provider: Unknown Physician HPI Reason for consult: toe infection,5th She presents to hospital with redness,pain and swelling fifth toe. She has no nausea or vomiting She has no injury to foot MRI shows osteomyelitis fifth toe She saw Dr Wright Review of Systems Review of Systems: Yes all other systems are reviewed and are negative PMFSH Past Medical History Medical History Arthritis Asthma CAD (coronary artery disease) Cyst (solitary) of breast Diabetes H. pylori infection HTN (hypertension) Kidney calculi Family History Family History Mother Diabetes Liver cancer Family history: reviewed and not pertinent Surgical History Surgical History History of breast surgery History of cardiac cath History of esophagogastroduodenoscopy (EGD) Hx of colonoscopy Social History Social History Household Members: Spouse and Family Housing: Apartment Alcohol intake: current Alcohol intake frequency: does not drink Smoking Status: Current every day smoker Tobacco Type: Cigarette Cigarettes Per Day: 2 Second Hand Smoke Exposure: No service: No Current occupational status: unemployed and disabled Meds Allergies Allergy/AdvReac Type Severity Reaction Status Date / Time latex [LATEX] Allergy Unknown RASH Verified 05/08/20 22:16 naproxen [From NAPROSYN] Allergy Unknown TACHYCARDIA Verified 05/08/20 22:16 Active Medications: Current Medications Generic Name Dose Route Start Last Admin Trade Name Freq PRN Reason Stop Dose Admin Acetaminophen 650 mg 05/09/20 05:24 Acetaminophen 325 Mg Tablet PO Q6H PRN Pain, Mild (Pain Scale 1-3) Aspirin 81 mg 05/09/20 09:00 05/09/20 07:49 Aspirin Enteric Coated 81 Mg Tablet. PO 81 mg DAILY JORY Administration Atorvastatin Calcium 80 mg 05/09/20 09:00 05/09/20 07:48 Atorvastatin Calcium 80 Mg Tablet PO 80 mg DAILY JORY Administration Carvedilol 25 mg 05/09/20 09:00 05/09/20 20:47 Carvedilol 25 Mg Tablet PO 25 mg BID JORY Administration Protocol Docusate Sodium 100 mg 05/09/20 05:24 Docusate Sodium 100 Mg Capsule PO DAILY PRN Constipation Enoxaparin Sodium 40 mg 05/09/20 06:00 05/09/20 06:05 Enoxaparin Sodium 40 Mg/0.4 Ml Syringe SUBCUT 40 mg Q24H JORY Administration Escitalopram Oxalate 20 mg 05/09/20 09:00 05/09/20 07:49 Escitalopram Oxalate 20 Mg Tablet PO 20 mg DAILY JORY Administration Gabapentin 800 mg 05/09/20 09:00 05/09/20 20:47 Gabapentin 400 Mg Capsule PO 800 mg TID JORY Administration Piperacillin Sod/Tazobactam 50 mls @ 100 mls/hr 05/09/20 05:24 05/09/20 18:22 Sod 3.375 gm/ Sodium Chloride IV Infused Q6H JORY Infusion Vancomycin HCl 750 mg/ Sodium 265 mls @ 265 mls/hr 05/09/20 11:00 05/09/20 13:49 Chloride IV Infused Q12H JORY Infusion Insulin Glargine 7 unit 05/09/20 09:00 05/09/20 10:56 Insulin Glargine,Hum.Rec.Anlog 100 Unit/Ml 10 Ml Vial SUBCUT 7 unit DAILY JORY Administration Insulin Human Lispro 0 unit 05/09/20 07:30 05/09/20 20:38 Insulin Lispro 100 Unit/Ml 3 Ml Vial SUBCUT Not Given QIDACHS [facility] Protocol Lisinopril 40 mg 05/09/20 09:00 05/09/20 08:00 Lisinopril 40 Mg Tablet PO 40 mg DAILY JORY Administration Protocol Mirtazapine 45 mg 05/09/20 21:00 05/09/20 20:48 Mirtazapine 15 Mg Tablet PO 45 mg BEDTIME JORY Administration Morphine Sulfate 4 mg 05/09/20 05:24 05/09/20 12:26 Morphine Sulfate 4 Mg/Ml Cartridge IVPUSH 4 mg Q4H PRN Administration Pain, Severe (Pain Scale 7-10) Multivitamins/Vitamin C 1 tab 05/09/20 09:00 05/09/20 07:48 Multivitamin Tablet PO 1 tab DAILY JORY Administration Omeprazole 20 mg 05/09/20 06:30 05/09/20 06:06 Omeprazole 20 Mg Capsule.Dr PO 20 mg DAILY@0630 [facility] Administration Ondansetron HCl 4 mg 05/09/20 05:24 Ondansetron Hcl 4 Mg/2 Ml Vial IVPUSH Q8H PRN Nausea and Vomiting Oxycodone HCl 5 mg 05/09/20 05:24 05/09/20 10:55 Oxycodone Hcl Immed Release 5 Mg Tablet PO 5 mg Q4H PRN Administration Pain Pharmacy Consult 1 each 05/08/20 22:17 Consult Rx Perform Med Rec MISCELLANE ONCE PRN Consult order Pharmacy Consult 1 each 05/09/20 05:24 Consult Rx Vancomycin Dosing MISCELLANE DAILY PRN Consult order Sodium Chloride 3 ml 05/09/20 08:00 05/09/20 15:51 0.9 % Sodium Chloride Flush 3 Ml Syringe IVFLUSH 3 ml QSHIFT [facility] Administration Home Medications Medication Instructions Recorded Confirmed Last Taken Type metformin 1,000 mg PO BID 12/22/19 05/09/20 05/08/20 08:00 History aspirin 81 mg tablet,delayed 81 mg PO DAILY 01/02/20 05/09/20 05/08/20 08:00 History release atorvastatin 80 mg tablet 80 mg PO DAILY 01/02/20 05/09/20 05/08/20 08:00 History carvedilol 25 mg tablet 25 mg PO BID 01/02/20 05/09/20 05/08/20 20:00 History escitalopram oxalate 20 mg tablet 20 mg PO DAILY 01/02/20 05/09/20 05/08/20 08:00 History ferrous sulfate 325 mg (65 mg 325 mg PO BID 01/02/20 05/09/20 05/08/20 20:00 History iron) tablet gabapentin 800 mg tablet 800 mg PO TID 01/02/20 05/09/20 05/08/20 20:00 History insulin degludec 100 unit/mL (3 10 unit SUBCUT DAILY 01/02/20 05/09/20 Unknown History mL) subcutaneous pen insulin lispro 100 unit/mL 2 sliding scale dose SUBCUT 01/02/20 05/09/20 Unknown History subcutaneous cartridge USEASDIRECTD lisinopril 40 mg tablet 40 mg PO DAILY 01/02/20 05/09/20 05/08/20 08:00 History mirtazapine 45 mg tablet 45 mg PO DAILY 01/02/20 05/09/20 05/08/20 08:00 History multivitamin 1 tab PO DAILY 01/02/20 05/09/20 05/08/20 08:00 History oxycodone 5 mg capsule 5 mg PO NEEDED PRN 01/02/20 05/09/20 Unknown History pioglitazone 45 mg tablet 45 mg PO DAILY 01/02/20 05/09/20 05/07/20 20:00 History pantoprazole 40 mg tablet,delayed 40 mg PO DAILY tab 03/03/20 05/09/20 05/08/20 08:00 History release Physical Exam Vital Signs: Vital Signs: Last Vital Signs Temp 98.0 F 05/09/20 19:30 Pulse 67 05/09/20 20:47 Resp 15 05/09/20 19:30 BP 140/64 H 05/09/20 20:47 Pulse Ox 96 05/09/20 19:30 Body Mass Index 27.1 Const: General: cooperative HENMT: Head: Yes normal to inspection Mouth: moist mucous membranes abnormal Resp: Effort & Inspection: normal respiratory effort Cardio: Rate: regular rate Rhythm: regular rhythm GI: Palpation (GI): Soft to palpation and nontender Skin: General skin exam: no rashes or lesions noted Extrem: Other: left fifth toe swelling,redness Results Labs CBC & Chem 7: 05/10/20 04:29 05/10/20 04:29 Labs: Short CBC 05/08/20 Range/Units 22:51 WBC 8.6 (4.8-10.8) X10*3/uL Hgb 13.3 (12.0-16.0) g/dl Hct 40.4 (37-47) % Plt Count 315 (160-400) X10*3/uL BMP 05/08/20 22:51 Sodium 137 Potassium 4.2 Chloride 100 Carbon Dioxide 27 BUN 13 Creatinine 0.75 Calcium 9.0 Liver Function 05/08/20 Range/Units 22:51 Total Bilirubin 0.7 (0.0-1.0) mg/dL Direct Bilirubin 0.2 (0.0-0.5) mg/dL AST 8 (5-31) U/L ALT 9 (0-31) U/L Alkaline Phosphatase 84 (39-117) U/L Albumin 3.8 (3.5-5.0) g/dL Urine 05/09/20 Range/Units 06:09 Urine Color YELLOW Urine Appearance CLEAR Urine pH 6.5 (5.0-8.0) Ur Specific [place] 1.015 (1.005-1.025) Urine Protein NEG (NEG-TRACE) MG/DL Urine Glucose (UA) 500 H (NEG) MG/DL Assessment and Plan (1) Diabetic foot ulcer: Problem details: There is concern over diabetic foot infection There is osteomyelitis left fifth toe Diabetes risk Status: Acute Would continue Vancomycin and Zosyn Await final cultures and surgical opinion He may need six weeks IV antibiotics (2) Infection of toe: Status: Acute
[2020-05-10 04:00] VITALS: BP 156/71; PULSE 76; RESP 16; TEMP 37.2; O2SAT 95
[2020-05-10 05:25] LABS: MANUAL DIFF FLAG NO
[2020-05-10 05:43] LABS: Basophils Absolute Auto 0.1 X10*3/uL (0.0-0.2); Basophils Percent Auto 0.6 % (0-2); Eosinophils Absolute Auto 0.2 X10*3/uL (0.0-0.4); Eosinophils Percent Auto 2.5 % (0-4); Hematocrit 37.1 % (37-47); Hemoglobin 12.2 g/dl (12.0-16.0); Imm Gran Abs Auto 0.05 X10*3/uL (0.00-0.03); Imm Gran Pct Auto 0.6 % (0.0-0.4); Lymphocytes Absolute Auto 2.4 X10*3/uL (1.2-4.9); Lymphocytes Percent Auto 26.4 % (20-40); Mean Corpuscular HGB Conc 32.9 g/dl (31.0-35.0); Mean Corpuscular Hemoglobin 29.8 pg (27.0-33.0); Mean Corpuscular Volume 90.7 fL (80-98); Mean Platelet Volume 9.4 fL (9.4-12.3); Monocytes Absolute Auto 0.6 X10*3/uL (0.1-1.2); Monocytes Percent Auto 6.1 % (2-11); Neutrophils Absolute Auto 5.8 X10*3/uL (2.0-8.3); Neutrophils Percent Auto 63.8 % (45-73); Platelet Count 311 X10*3/uL (160-400); Red Blood Count 4.09 X10*6/uL (4.20-5.50)
[2020-05-10] MEDS: Omeprazole 20 MG CAPSULE.DR PO (05:45)
[2020-05-10] MEDS: oxyCODONE HCl Immed Release 5 MG TABLET PO ×2 (05:45→23:36)
[2020-05-10] MEDS: Enoxaparin Sodium 40 MG/0.4 ML SYRINGE SUBCUT (05:45)
[2020-05-10] MEDS: Piperacillin Sodium/Tazobactam 3.375 GM in 0.9 % Sodium Chloride 50 ML IV ×4 (05:46→23:36)
[2020-05-10 06:04] LABS: Anion Gap 14 (12-20); Blood Urea Nitrogen 10 mg/dL (9-16); Calcium 8.4 mg/dL (8.4-10.2); Carbon Dioxide 27 mmol/L (22-29); Chloride 103 mmol/L (96-108); Creatinine Clr Calc Pharmacy 88.8; Estimated Glomerular Filt Rate > 60; Glucose Random 119 mg/dL (60-115); Potassium 4.2 mmol/L (3.3-5.1); Sodium 140 mmol/L (135-145)
[2020-05-10 07:33] VITALS: BP 157/60; PULSE 92; RESP 16; TEMP 36.1; O2SAT 94
[2020-05-10 07:33] LABS: Glucose, Whole Blood 131 mg/dL (60-115)
[2020-05-10] MEDS: Insulin Glargine,Hum.rec.anlog 100 UNIT/ML 10 ML VIAL 7 UNIT SUBCUT (09:02)
[2020-05-10] MEDS: 0.9 % Sodium Chloride Flush 3 ML SYRINGE IVFLUSH ×3 (09:02→23:36)
[2020-05-10] MEDS: Gabapentin 400 MG CAPSULE 800 MG PO ×3 (09:03→22:19)
[2020-05-10] MEDS: lisinopriL 40 MG TABLET PO (09:03)
[2020-05-10] MEDS: Aspirin Enteric Coated 81 MG TABLET.DR PO (09:03)
[2020-05-10] MEDS: Escitalopram Oxalate 20 MG TABLET PO (09:04)
[2020-05-10] MEDS: carvediloL 25 MG TABLET PO ×2 (09:04→22:19)
[2020-05-10] MEDS: Atorvastatin Calcium 80 MG TABLET PO (09:04)
[2020-05-10] MEDS: Multivitamin TABLET 1 TAB PO (09:04)
[2020-05-10] MEDS: Morphine Sulfate 4 MG/ML CARTRIDGE IVPUSH ×2 (09:04→14:49)
[2020-05-10 11:08] LABS: Vancomycin Trough 8.9 mcg/mL (10.0-20.0)
[2020-05-10 11:51] LABS: Glucose, Whole Blood 181 mg/dL (60-115)
[2020-05-10] MEDS: Insulin Lispro 100 UNIT/ML 3 ML VIAL SUBCUT ×2 (11:54→22:18)
[2020-05-10] MEDS: vancomycin HCL 1,000 MG in 0.9 % Sodium Chloride 250 ML 270 MG IV (11:55)
--- NOTE | 2020-05-10 13:37 | MHC.CM.PN ---
Addendum entered by Amanda Tobias 05/10/20 13:40: CORRECTION: PT DID NOT RECEIVE AN IMM. SHE DOES NOT HAVE MEDICARE Original Note: CM MET WITH PT WITH THE ASSISTANCE OF A SUPPLIER QUALITY ENGINEER. PT REPORTS SHE LIVES WITH HER S/O AND CHILDREN. PT REPORTS SHE IS INDEPENDENT AND HAS NO SERVICES OR DME. SHE REPORTS SHE FEELS SHE WILL NEED SOME TYPE OF ASSISTIVE DEVICE UPON DISCHARGE. PT CONFIRMS THE HCP ON FILE IS CORRECT AND REPORTS HER PCP IS [facility]. IMM DELIVERED CURRENT DC PLAN IS HOME WITH NO SERVICES VS HOME WITH PT S/O TO TRANSPORT
[2020-05-10 15:06] VITALS: BP 157/82; PULSE 64; RESP 18; TEMP 36.9; O2SAT 94
--- NOTE | 2020-05-10 15:53 | HO.PM.IMPN ---
Subjective Subjective Date of Service: 05/10/20 Interval History: Patient complaining of left foot pain no improvement in pain since admission complaining of chills but no fever, or other acute issues since admission. ROS General no headache, no dizziness, no fever chills. CVS no chest pain, no palpitation. Respiratory no cough ,no sob. Gastrointestinal no nausea, no vomiting, no abdominal pain Physical Exam Vital Signs: Vital Signs: Last Vital Signs Temp 98.4 F 05/10/20 15:06 Pulse 64 05/10/20 15:06 Resp 18 05/10/20 15:06 BP 157/82 H 05/10/20 15:06 Pulse Ox 94 05/10/20 15:06 Body Mass Index 27.1 General patient resting comfortably in no acute distress. Neck is supple no JVD. CVS regular rate rhythm, Respiratory lungs clear to auscultation, no respiratory distress, no wheeze, no rhonchi. Gastrointestinal abdomen soft, nontender, bowel sounds audible, no guarding , no rigidity. Extremities right leg normal examination Left foot dressing to 4th and 5th toes in place no drainage noted, small superficial ulceration left cough with no drainage, left heel with no open sores Neuro decreased sensation, left toes and forefoot, speech clear. Skin no rash Objective Data Current Medications Generic Name Dose Route Start Last Admin Trade Name Freq PRN Reason Stop Dose Admin Acetaminophen 650 mg 05/09/20 05:24 Acetaminophen 325 Mg Tablet PO Q6H PRN Pain, Mild (Pain Scale 1-3) Aspirin 81 mg 05/09/20 09:00 05/10/20 09:03 Aspirin Enteric Coated 81 Mg Tablet. PO 81 mg DAILY JORY Administration Atorvastatin Calcium 80 mg 05/09/20 09:00 05/10/20 09:04 Atorvastatin Calcium 80 Mg Tablet PO 80 mg DAILY JORY Administration Carvedilol 25 mg 05/09/20 09:00 05/10/20 09:04 Carvedilol 25 Mg Tablet PO 25 mg BID JORY Administration Protocol Docusate Sodium 100 mg 05/09/20 05:24 Docusate Sodium 100 Mg Capsule PO DAILY PRN Constipation Enoxaparin Sodium 40 mg 05/09/20 06:00 05/10/20 05:45 Enoxaparin Sodium 40 Mg/0.4 Ml Syringe SUBCUT 40 mg Q24H JORY Administration Escitalopram Oxalate 20 mg 05/09/20 09:00 05/10/20 09:04 Escitalopram Oxalate 20 Mg Tablet PO 20 mg DAILY JORY Administration Gabapentin 800 mg 05/09/20 09:00 05/10/20 14:48 Gabapentin 400 Mg Capsule PO 800 mg TID [facility] Administration Piperacillin Sod/Tazobactam 50 mls @ 100 mls/hr 05/09/20 05:24 05/10/20 11:38 Sod 3.375 gm/ Sodium Chloride IV Infused Q6H JORY Infusion Vancomycin HCl 1,000 mg/ 270 mls @ 270 mls/hr 05/10/20 12:00 05/10/20 13:22 Sodium Chloride IV Infused Q12H [facility] Infusion Insulin Glargine 7 unit 05/09/20 09:00 05/10/20 09:02 Insulin Glargine,Hum.Rec.Anlog 100 Unit/Ml 10 Ml Vial SUBCUT 7 unit DAILY [facility] Administration Insulin Human Lispro 0 unit 05/09/20 07:30 05/10/20 11:54 Insulin Lispro 100 Unit/Ml 3 Ml Vial SUBCUT 2 unit QIDACHS [facility] Administration Protocol Lisinopril 40 mg 05/09/20 09:00 05/10/20 09:03 Lisinopril 40 Mg Tablet PO 40 mg DAILY [facility] Administration Protocol Mirtazapine 45 mg 05/09/20 21:00 05/09/20 20:48 Mirtazapine 15 Mg Tablet PO 45 mg BEDTIME [facility]ORY Administration Morphine Sulfate 4 mg 05/09/20 05:24 05/10/20 14:49 Morphine Sulfate 4 Mg/Ml Cartridge IVPUSH 4 mg Q4H PRN Administration Pain, Severe (Pain Scale 7-10) Multivitamins/Vitamin C 1 tab 05/09/20 09:00 05/10/20 09:04 Multivitamin Tablet PO 1 tab DAILY [facility] Administration Omeprazole 20 mg 05/09/20 06:30 05/10/20 05:45 Omeprazole 20 Mg Capsule.Dr PO 20 mg DAILY@0630 [facility] Administration Ondansetron HCl 4 mg 05/09/20 05:24 Ondansetron Hcl 4 Mg/2 Ml Vial IVPUSH Q8H PRN Nausea and Vomiting Oxycodone HCl 5 mg 05/09/20 05:24 05/10/20 05:45 Oxycodone Hcl Immed Release 5 Mg Tablet PO 5 mg Q4H PRN Administration Pain Pharmacy Consult 1 each 05/08/20 22:17 Consult Rx Perform Med Rec MISCELLANE ONCE PRN Consult order Pharmacy Consult 1 each 05/09/20 05:24 Consult Rx Vancomycin Dosing MISCELLANE DAILY PRN Consult order Sodium Chloride 3 ml 05/09/20 08:00 05/10/20 15:45 0.9 % Sodium Chloride Flush 3 Ml Syringe IVFLUSH 3 ml QSHIFT JORY Administration Labs CBC & Chem 7: 05/10/20 04:29 05/10/20 04:29 Microbiology Microbiology Results: Microbiology 05/09/20 05:53 Urine clean catch - Clean Catch Midstream Urine Culture - Final 05/08/20 22:52 Blood - Venous Blood Culture - Preliminary No growth after 24 hours. 05/08/20 22:52 Blood - Venous Blood Culture - Preliminary No growth after 24 hours. Assessment and Plan (1) Diabetic foot ulcer: Problem details: There is concern over diabetic foot infection There is osteomyelitis left fifth toe Diabetes risk Status: Acute (2) Infection of toe: Status: Acute (3) Uncontrolled diabetes mellitus: Status: Acute Assessment and Plan: 59-year-old female who presents to the hospital with complaints of nonhealing ulcers of her left foot. . Sent by wound clinic. # nonhealing diabetic foot ulcer, MRI foot suspicious for 5th toe osteomyelitis ESR 12, CRP 1.09, was on antibiotics for 2 weeks outpatient Will continue IV vancomycin and Zosyn,day 2, patient seen by Dr. Lowery no debridement required cont. dry sterile dressing Await infectious disease Await vascular surgery consult due to abnormal duplex ultrasound left leg. Continue oxycodone and morphine for pain control # diabetes mellitus - blood sugars stable, continue home insulin and low-dose sliding scale insulin - diabetic diet # hypertension - blood pressure elevated likely due to pain and anxiety, continue carvedilol and lisinopril and follow BP closely # CAD - no chest pain continue aspirin and carvedilol # GERD - continue PPI DVT prophylaxis: Lovenox
[2020-05-10 16:24] LABS: Glucose, Whole Blood 72 mg/dL (60-115)
[2020-05-10 19:13] VITALS: BP 137/53; PULSE 79; RESP 16; TEMP 36; O2SAT 94
[2020-05-10 20:35] LABS: Glucose, Whole Blood 235 mg/dL (60-115)
[2020-05-10 22:19] VITALS: BP 137/53; PULSE 79
[2020-05-10] MEDS: Mirtazapine 15 MG TABLET 45 MG PO (22:19)
[2020-05-10 23:15] VITALS: BP 169/68; PULSE 82; RESP 16; TEMP 36.5; O2SAT 96
[2020-05-11] VITALS (7 sets, daily range): BP systolic 113–160; BP diastolic 62–77; PULSE 67–75; RESP 14–19; TEMP 36.1–37.1; O2SAT 94–98
[2020-05-11] MEDS: vancomycin HCL 1,000 MG in 0.9 % Sodium Chloride 250 ML 270 MG IV ×2 (00:11→11:33)
[2020-05-11] MEDS: Piperacillin Sodium/Tazobactam 3.375 GM in 0.9 % Sodium Chloride 50 ML IV ×4 (05:57→23:52)
[2020-05-11] MEDS: oxyCODONE HCl Immed Release 5 MG TABLET PO ×2 (05:57→10:08)
[2020-05-11] MEDS: Enoxaparin Sodium 40 MG/0.4 ML SYRINGE SUBCUT (05:57)
[2020-05-11] MEDS: Omeprazole 20 MG CAPSULE.DR PO (05:58)
[2020-05-11 08:14] LABS: Glucose, Whole Blood 89 mg/dL (60-115)
[2020-05-11] MEDS: Insulin Glargine,Hum.rec.anlog 100 UNIT/ML 10 ML VIAL 7 UNIT SUBCUT (10:06)
[2020-05-11] MEDS: Atorvastatin Calcium 80 MG TABLET PO (10:07)
[2020-05-11] MEDS: Aspirin Enteric Coated 81 MG TABLET.DR PO (10:07)
[2020-05-11] MEDS: Gabapentin 400 MG CAPSULE 800 MG PO ×3 (10:07→20:42)
[2020-05-11] MEDS: Multivitamin TABLET 1 TAB PO (10:07)
[2020-05-11] MEDS: Escitalopram Oxalate 20 MG TABLET PO (10:08)
[2020-05-11] MEDS: carvediloL 25 MG TABLET PO ×2 (10:08→20:43)
[2020-05-11] MEDS: lisinopriL 40 MG TABLET PO (10:08)
[2020-05-11] MEDS: 0.9 % Sodium Chloride Flush 3 ML SYRINGE IVFLUSH ×3 (10:13→20:49)
[2020-05-11] MEDS: Morphine Sulfate 4 MG/ML CARTRIDGE IVPUSH ×2 (11:02→20:44)
[2020-05-11 11:18] LABS: Glucose, Whole Blood 312 mg/dL (60-115)
[2020-05-11] MEDS: Insulin Lispro 100 UNIT/ML 3 ML VIAL SUBCUT ×3 (11:39→20:44)
--- NOTE | 2020-05-11 12:07 | PM.CNGS ---
History of Present Illness Consult details Consult date: 05/11/20 Reason for consult: wound care Narrative: Complex 59-year-old female with a history of diabetes has nonhealing left foot ulcer. Has originally been seen by General surgery now presents to us for vascular evaluation. Of note she has had noninvasive arterial testing. Of note she was been [facility] by [facility] and was sent in for further evaluation. Review of Systems Review of Systems: Yes all other systems are reviewed and are negative Constitutional: Constitutional: Reports no additional constitutional complaints ENT: Reports Normal hearing present Cardiovascular: Cardiovascular: Denies chest pain, Denies chest pain at rest, Denies chest pain with activity and Denies pedal edema Respiratory: Respiratory: Denies cough Gastrointestinal: Gastrointestinal: Denies abdominal pain Musculoskeletal: Musculoskeletal: Denies abnormal gait, Denies muscle cramps and Denies radiating pain into limb Integumentary/Breasts: Skin/Breast: Denies skin ulcer and Denies wounds Neurologic: Reports Normal hearing present and Denies abnormal gait Psychiatric: Psychiatric: Reports no additional psychiatric complaints PMFSH Past Medical History Medical History Arthritis Asthma CAD (coronary artery disease) Cyst (solitary) of breast Diabetes H. pylori infection HTN (hypertension) Kidney calculi Family History Family History Mother Diabetes Liver cancer Family history: reviewed and not pertinent Surgical History Surgical History History of breast surgery History of cardiac cath History of esophagogastroduodenoscopy (EGD) Hx of colonoscopy Social History Social History Household Members: Spouse and Family Housing: Apartment Do you presently have visiting nurse or other home services: No Alcohol intake: current Alcohol intake frequency: does not drink Smoking Status: Current every day smoker Tobacco Type: Cigarette Cigarettes Per Day: 2 Smoked in Last 30 Days: No Patient Interested in Nicotine Replacement: No Patient Given Instructions on How to Stop Smoking: No Second Hand Smoke Exposure: No Use of substances other than those prescribed or required for medical reasons: No Currently Displaying Signs/Symptoms of Drug Intoxication Withdrawal: No Have you been hit, kicked, punched, or otherwise hurt by someone within the past year? If so, by whom?: No Do you feel safe in your current relationship?: Yes Is there a partner from a previous relationship who is making you feel unsafe now?: No Are you made to feel afraid or neglected: No Advance Directives: No Advance Directives Information Provided: No Do you have thoughts of harming others: None Do you have a plan to hurt others: No Plan Recently lost weight without trying: Yes service: No Current occupational status: unemployed and disabled Meds Allergies Allergy/AdvReac Type Severity Reaction Status Date / Time latex [LATEX] Allergy Unknown RASH Verified 05/08/20 22:16 naproxen [From NAPROSYN] Allergy Unknown TACHYCARDIA Verified 05/08/20 22:16 Active Medications: Current Medications Generic Name Dose Route Start Last Admin Trade Name Freq PRN Reason Stop Dose Admin Acetaminophen 650 mg 05/09/20 05:24 Acetaminophen 325 Mg Tablet PO Q6H PRN Pain, Mild (Pain Scale 1-3) Aspirin 81 mg 05/09/20 09:00 05/11/20 10:07 Aspirin Enteric Coated 81 Mg Tablet.Dr PO 81 mg DAILY JORY Administration Atorvastatin Calcium 80 mg 05/09/20 09:00 05/11/20 10:07 Atorvastatin Calcium 80 Mg Tablet PO 80 mg DAILY [facility]ORY Administration Carvedilol 25 mg 05/09/20 09:00 05/11/20 10:08 Carvedilol 25 Mg Tablet PO 25 mg BID JORY Administration Protocol Docusate Sodium 100 mg 05/09/20 05:24 Docusate Sodium 100 Mg Capsule PO DAILY PRN Constipation Enoxaparin Sodium 40 mg 05/09/20 06:00 05/11/20 05:57 Enoxaparin Sodium 40 Mg/0.4 Ml Syringe SUBCUT 40 mg Q24H [facility]ORY Administration Escitalopram Oxalate 20 mg 05/09/20 09:00 05/11/20 10:08 Escitalopram Oxalate 20 Mg Tablet PO 20 mg DAILY [facility]ORY Administration Gabapentin 800 mg 05/09/20 09:00 05/11/20 10:07 Gabapentin 400 Mg Capsule PO 800 mg TID JORY Administration Piperacillin Sod/Tazobactam 50 mls @ 100 mls/hr 05/09/20 05:24 05/11/20 11:41 Sod 3.375 gm/ Sodium Chloride IV Infused Q6H [facility] Infusion Vancomycin HCl 1,000 mg/ 270 mls @ 270 mls/hr 05/10/20 12:00 05/11/20 11:33 Sodium Chloride IV 270 mls/hr Q12H [facility] Administration Insulin Glargine 7 unit 05/09/20 09:00 05/11/20 10:06 Insulin Glargine,Hum.Rec.Anlog 100 Unit/Ml 10 Ml Vial SUBCUT 7 unit DAILY [facility] Administration Insulin Human Lispro 0 unit 05/09/20 07:30 05/11/20 11:39 Insulin Lispro 100 Unit/Ml 3 Ml Vial SUBCUT 8 unit QIDACHS [facility] Administration Protocol Lisinopril 40 mg 05/09/20 09:00 05/11/20 10:08 Lisinopril 40 Mg Tablet PO 40 mg DAILY JORY Administration Protocol Mirtazapine 45 mg 05/09/20 21:00 05/10/20 22:19 Mirtazapine 15 Mg Tablet PO 45 mg BEDTIME [facility]ORY Administration Morphine Sulfate 4 mg 05/09/20 05:24 05/11/20 11:02 Morphine Sulfate 4 Mg/Ml Cartridge IVPUSH 4 mg Q4H PRN Administration Pain, Severe (Pain Scale 7-10) Multivitamins/Vitamin C 1 tab 05/09/20 09:00 05/11/20 10:07 Multivitamin Tablet PO 1 tab DAILY [facility] Administration Omeprazole 20 mg 05/09/20 06:30 05/11/20 05:58 Omeprazole 20 Mg Capsule.Dr PO 20 mg DAILY@0630 [facility] Administration Ondansetron HCl 4 mg 05/09/20 05:24 Ondansetron Hcl 4 Mg/2 Ml Vial IVPUSH Q8H PRN Nausea and Vomiting Oxycodone HCl 5 mg 05/09/20 05:24 05/11/20 10:08 Oxycodone Hcl Immed Release 5 Mg Tablet PO 5 mg Q4H PRN Administration Pain Pharmacy Consult 1 each 05/08/20 22:17 Consult Rx Perform Med Rec MISCELLANE ONCE PRN Consult order Pharmacy Consult 1 each 05/09/20 05:24 Consult Rx Vancomycin Dosing MISCELLANE DAILY PRN Consult order Sodium Chloride 3 ml 05/09/20 08:00 05/11/20 10:13 0.9 % Sodium Chloride Flush 3 Ml Syringe IVFLUSH 3 ml QSHIFT [facility] Administration Home Medications Medication Instructions Recorded Confirmed Last Taken Type metformin 1,000 mg PO BID 12/22/19 05/09/20 05/08/20 08:00 History aspirin 81 mg tablet,delayed 81 mg PO DAILY 01/02/20 05/09/20 05/08/20 08:00 History release atorvastatin 80 mg tablet 80 mg PO DAILY 01/02/20 05/09/20 05/08/20 08:00 History carvedilol 25 mg tablet 25 mg PO BID 01/02/20 05/09/20 05/08/20 20:00 History escitalopram oxalate 20 mg tablet 20 mg PO DAILY 01/02/20 05/09/20 05/08/20 08:00 History ferrous sulfate 325 mg (65 mg 325 mg PO BID 01/02/20 05/09/20 05/08/20 20:00 History iron) tablet gabapentin 800 mg tablet 800 mg PO TID 01/02/20 05/09/20 05/08/20 20:00 History insulin degludec 100 unit/mL (3 10 unit SUBCUT DAILY 01/02/20 05/09/20 Unknown History mL) subcutaneous pen insulin lispro 100 unit/mL 2 sliding scale dose SUBCUT 01/02/20 05/09/20 Unknown History subcutaneous cartridge USEASDIRECTD lisinopril 40 mg tablet 40 mg PO DAILY 01/02/20 05/09/20 05/08/20 08:00 History mirtazapine 45 mg tablet 45 mg PO DAILY 01/02/20 05/09/20 05/08/20 08:00 History multivitamin 1 tab PO DAILY 01/02/20 05/09/20 05/08/20 08:00 History oxycodone 5 mg capsule 5 mg PO NEEDED PRN 01/02/20 05/09/20 Unknown History pioglitazone 45 mg tablet 45 mg PO DAILY 01/02/20 05/09/20 05/07/20 20:00 History pantoprazole 40 mg tablet,delayed 40 mg PO DAILY tab 03/03/20 05/09/20 05/08/20 08:00 History release Physical Exam Vital Signs: Vital Signs: Last Vital Signs Temp 97.1 F 05/11/20 07:58 Pulse 72 05/11/20 07:58 Resp 17 05/11/20 07:58 BP 160/77 H 05/11/20 07:58 Pulse Ox 98 05/11/20 07:58 Body Mass Index 27.1 Const: General: cooperative, healthy appearing and comfortable Orientation/consciousness: oriented to person, oriented to place and oriented to time HENMT: Head: Yes normal to inspection Neck: Neck: Yes normal visual inspection Carotids: no bruits Chest: Chest palpation & inspection: normal inspection of the chest Resp: Effort & Inspection: normal respiratory effort and able to speak in complete sentences Auscultation: clear to auscultation bilaterally, no crackles, no rales, no rhonchi and no wheezes Cardio: Rate: regular rate Rhythm: regular rhythm Heart sounds: S1 normal heart sound present and S2 normal heart sound present Bruits: no carotid bruits Peripheral pulses: Peripheral pulses 2+ throughout GI: Inspection: Yes normal to inspection Skin: Wounds: wounds noted (Left foot) Hair: normal Neuro: General: oriented to person, oriented to place and oriented to time Cranial nerves: Yes CN's II-XII intact bilaterally and Yes Normal hearing present Cognition (Neuro): normal cognition Motor exam (neuro): 5/5 motor strength present throughout Extrem: Other: venous exam: No significant superficial varicosities or spider telangiectasias, minimal edema General: No clubbing, No cyanosis and No edema Psych: Appearance: grossly normal Mental Status: mental status grossly normal Speech and movement: Normal speech and movement present Results Labs Result diagrams: 05/10/20 04:29 05/10/20 04:29 Labs: Abnormal lab results 05/10/20 05/11/20 Range/Units 20:28 11:06 POC Glucose 235 H 312 H (60-115) mg/dL Urine 05/09/20 Range/Units 06:09 Urine Color YELLOW Urine Appearance CLEAR Urine pH 6.5 (5.0-8.0) Ur Specific [place] 1.015 (1.005-1.025) Urine Protein NEG (NEG-TRACE) MG/DL Urine Glucose (UA) 500 H (NEG) MG/DL All other labs normal. Assessment and Plan (1) PAD (peripheral artery disease): Status: Acute In short patient has severe PA D. she has nonhealing ulcers. Noninvasive testing is concerning for inflow disease and SFA disease. Patient will require endovascular evaluation. I will discuss this with the patient. Will schedule later this week. At the current time would continue with local wound care. Would continue with treatment for osteomyelitis. Thank you for allowing me to assist in her care.
--- NOTE | 2020-05-11 15:05 | P.PNIM_ITS ---
Subjective Subjective Date of Service: 05/11/20 Interval History: Patient complaining of persistent left foot pain, otherwise denies fever chills no other acute issues overnight. ROS General no headache, no dizziness, no fever chills. CVS no chest pain, no palpitation. Respiratory no cough ,no sob. Gastrointestinal no nausea, no vomiting, no abdominal pain Physical Exam Vital Signs: Vital Signs: Last Vital Signs Temp 97.9 F 05/11/20 12:00 Pulse 74 05/11/20 12:00 Resp 18 05/11/20 12:00 BP 113/67 05/11/20 12:00 Pulse Ox 97 05/11/20 12:00 Body Mass Index 27.1 General patient resting comfortably in no acute distress. Neck is supple no JVD. CVS regular rate rhythm, Respiratory lungs clear to auscultation, no respiratory distress, no wheeze, no rhonchi. Gastrointestinal abdomen soft, nontender, bowel sounds audible, no guarding , no rigidity. Extremities right leg normal examination Left foot dressing to 4th and 5th toes in place no drainage noted, small superficial ulceration left leg with no drainage, left heel with no open sores Neuro decreased sensation, bilateral feet, speech clear. Skin no rash Objective Data Current Medications Generic Name Dose Route Start Last Admin Trade Name Freq PRN Reason Stop Dose Admin Acetaminophen 650 mg 05/09/20 05:24 Acetaminophen 325 Mg Tablet PO Q6H PRN Pain, Mild (Pain Scale 1-3) Aspirin 81 mg 05/09/20 09:00 05/11/20 10:07 Aspirin Enteric Coated 81 Mg Tablet.Dr PO 81 mg DAILY JORY Administration Atorvastatin Calcium 80 mg 05/09/20 09:00 05/11/20 10:07 Atorvastatin Calcium 80 Mg Tablet PO 80 mg DAILY JORY Administration Carvedilol 25 mg 05/09/20 09:00 05/11/20 10:08 Carvedilol 25 Mg Tablet PO 25 mg BID JORY Administration Protocol Docusate Sodium 100 mg 05/09/20 05:24 Docusate Sodium 100 Mg Capsule PO DAILY PRN Constipation Enoxaparin Sodium 40 mg 05/09/20 06:00 05/11/20 05:57 Enoxaparin Sodium 40 Mg/0.4 Ml Syringe SUBCUT 40 mg Q24H JORY Administration Escitalopram Oxalate 20 mg 05/09/20 09:00 05/11/20 10:08 Escitalopram Oxalate 20 Mg Tablet PO 20 mg DAILY JORY Administration Gabapentin 800 mg 05/09/20 09:00 05/11/20 10:07 Gabapentin 400 Mg Capsule PO 800 mg TID JORY Administration Piperacillin Sod/Tazobactam 50 mls @ 100 mls/hr 05/09/20 05:24 05/11/20 11:41 Sod 3.375 gm/ Sodium Chloride IV Infused Q6H JORY Infusion Vancomycin HCl 1,000 mg/ 270 mls @ 270 mls/hr 05/10/20 12:00 05/11/20 13:43 Sodium Chloride IV Infused Q12H JORY Infusion Insulin Glargine 7 unit 05/09/20 09:00 05/11/20 10:06 Insulin Glargine,Hum.Rec.Anlog 100 Unit/Ml 10 Ml Vial SUBCUT 7 unit DAILY REPLACED BY [facility] Administration Insulin Human Lispro 0 unit 05/09/20 07:30 05/11/20 11:39 Insulin Lispro 100 Unit/Ml 3 Ml Vial SUBCUT 8 unit QIDACHS REPLACED BY [facility] Administration Protocol Lisinopril 40 mg 05/09/20 09:00 05/11/20 10:08 Lisinopril 40 Mg Tablet PO 40 mg DAILY REPLACED BY [facility] Administration Protocol Mirtazapine 45 mg 05/09/20 21:00 05/10/20 22:19 Mirtazapine 15 Mg Tablet PO 45 mg BEDTIME JORY Administration Morphine Sulfate 4 mg 05/09/20 05:24 05/11/20 11:02 Morphine Sulfate 4 Mg/Ml Cartridge IVPUSH 4 mg Q4H PRN Administration Pain, Severe (Pain Scale 7-10) Multivitamins/Vitamin C 1 tab 05/09/20 09:00 05/11/20 10:07 Multivitamin Tablet PO 1 tab DAILY JORY Administration Omeprazole 20 mg 05/09/20 06:30 05/11/20 05:58 Omeprazole 20 Mg Capsule.Dr PO 20 mg DAILY@0630 REPLACED BY [facility] Administration Ondansetron HCl 4 mg 05/09/20 05:24 Ondansetron Hcl 4 Mg/2 Ml Vial IVPUSH Q8H PRN Nausea and Vomiting Oxycodone HCl 5 mg 05/09/20 05:24 05/11/20 10:08 Oxycodone Hcl Immed Release 5 Mg Tablet PO 5 mg Q4H PRN Administration Pain Pharmacy Consult 1 each 05/08/20 22:17 Consult Rx Perform Med Rec MISCELLANE ONCE PRN Consult order Pharmacy Consult 1 each 05/09/20 05:24 Consult Rx Vancomycin Dosing MISCELLANE DAILY PRN Consult order Sodium Chloride 3 ml 05/09/20 08:00 05/11/20 10:13 0.9 % Sodium Chloride Flush 3 Ml Syringe IVFLUSH 3 ml QSHIFT JORY Administration Labs CBC & Chem 7: 05/10/20 04:29 05/10/20 04:29 Microbiology Microbiology Results: Microbiology 05/08/20 22:52 Blood - Venous Blood Culture - Preliminary No growth after 48 hours. 05/08/20 22:52 Blood - Venous Blood Culture - Preliminary No growth after 48 hours. 05/09/20 05:53 Urine clean catch - Clean Catch Midstream Urine Culture - Final Assessment and Plan (1) Infection of toe: Status: Acute (2) Diabetic foot ulcer: Problem details: There is concern over diabetic foot infection There is osteomyelitis left fifth toe Diabetes risk Status: Acute (3) PAD (peripheral artery disease): Status: Acute (4) Uncontrolled diabetes mellitus: Status: Acute (5) HTN (hypertension): Status: Acute Assessment and Plan: 59-year-old female who presents to the hospital with complaints of nonhealing ulcers of her left foot. . Sent by wound clinic. # Nonhealing diabetic foot ulcer, MRI foot suspicious for 5th toe osteomyelitis Persistent pain otherwise no fever, no chills, no leukocytosis. ESR 12, CRP 1.09, was on antibiotics for 2 weeks outpatient Will continue IV vancomycin and Zosyn,day 3, patient seen by Dr. Lowery no debridement required cont. dry sterile dressing Patient seen by Dr. Castellanos she recommend 6 weeks of IV antibiotic x2 negative Patient seen by Dr. Aragon, vascular surgeon he recommend angiogram is scheduled for this Monday , abnormal duplex ultrasound left leg. Continue oxycodone and morphine for pain control # diabetes mellitus - blood sugars fluctuating, continue home insulin and low-dose sliding scale insulin - diabetic diet # hypertension - blood pressure improved continue carvedilol and lisinopril , follow BP closely # CAD - no chest pain continue aspirin and carvedilol. # GERD - continue PPI DVT prophylaxis:Lovenox
--- NOTE | 2020-05-11 16:07 | MHC.CM.PN ---
PER PHYSICIAN ROUNDS, PATIENT WITH FIFTH TOE OSTEOMYELITIS PLAN WAS FOR VASCULAR CONSULT CASE MANAGEMENT FOLLOWING
--- NOTE | 2020-05-11 16:45 | PC.NURSE ---
1400 px taken of diabetic ulcer on left posterior calf and left foot between 4th and 5th toe. areas unstagable. no drainage. DSD applied
[2020-05-11 16:47] LABS: Glucose, Whole Blood 225 mg/dL (60-115)
[2020-05-11 20:22] LABS: Glucose, Whole Blood 198 mg/dL (60-115)
[2020-05-11] MEDS: Mirtazapine 15 MG TABLET 45 MG PO (20:43)
[2020-05-11 22:28] LABS: Vancomycin Trough 11.8 mcg/mL (10.0-20.0)
[2020-05-12] VITALS (7 sets, daily range): BP systolic 104–186; BP diastolic 53–86; PULSE 70–74; RESP 16–20; TEMP 36.3–36.8; O2SAT 94–97; BMI 27.1
[2020-05-12] MEDS: vancomycin HCL 1,000 MG in 0.9 % Sodium Chloride 250 ML 20 MG IV ×2 (00:03→12:25)
[2020-05-12] MEDS: oxyCODONE HCl Immed Release 5 MG TABLET PO (00:29)
[2020-05-12] MEDS: Morphine Sulfate 4 MG/ML CARTRIDGE IVPUSH ×5 (01:58→22:05)
[2020-05-12] MEDS: Omeprazole 20 MG CAPSULE.DR PO (06:01)
[2020-05-12] MEDS: Piperacillin Sodium/Tazobactam 3.375 GM in 0.9 % Sodium Chloride 50 ML IV ×4 (06:02→22:04)
[2020-05-12] MEDS: Enoxaparin Sodium 40 MG/0.4 ML SYRINGE SUBCUT (06:03)
[2020-05-12 07:41] LABS: Glucose, Whole Blood 236 mg/dL (60-115)
[2020-05-12] MEDS: Insulin Glargine,Hum.rec.anlog 100 UNIT/ML 10 ML VIAL 7 UNIT SUBCUT (08:03)
[2020-05-12] MEDS: Gabapentin 400 MG CAPSULE 800 MG PO ×3 (08:04→22:03)
[2020-05-12] MEDS: Escitalopram Oxalate 20 MG TABLET PO (08:04)
[2020-05-12] MEDS: Aspirin Enteric Coated 81 MG TABLET.DR PO (08:04)
[2020-05-12] MEDS: Insulin Lispro 100 UNIT/ML 3 ML VIAL SUBCUT ×4 (08:04→22:04)
[2020-05-12] MEDS: Atorvastatin Calcium 80 MG TABLET PO (08:05)
[2020-05-12] MEDS: Multivitamin TABLET 1 TAB PO (08:05)
[2020-05-12] MEDS: 0.9 % Sodium Chloride Flush 3 ML SYRINGE IVFLUSH ×2 (08:14→16:35)
--- NOTE | 2020-05-12 09:43 | HO.VASCPN ---
Subjective Subjective Date of Service: 05/12/20 Patient reports: no new complaints and feels better Interval history: Complex diabetic pt with nonhealing left great toe. Has underlying osteomylitis. Pt. has had noninvasive testing. Now for follow up with diplomatic interpreter/translator present. Pt. reports no new events overnight Physical Exam Vital Signs: Vital Signs: Last Vital Signs Temp 97.4 F 05/12/20 08:00 Pulse 73 05/12/20 08:00 Resp 17 05/12/20 08:00 BP 186/86 H 05/12/20 08:00 Pulse Ox 97 05/12/20 08:00 Body Mass Index 27.1 Const: General: cooperative, healthy appearing and no acute distress Orientation/consciousness: oriented to person, oriented to place and oriented to time HENMT: Head: Yes normal to inspection Neck: Carotids: no bruits Chest: Chest palpation & inspection: normal inspection of the chest Resp: Effort & Inspection: normal respiratory effort and able to speak in complete sentences Auscultation: clear to auscultation bilaterally Cardio: Rate: regular rate Heart sounds: S1 normal heart sound present and S2 normal heart sound present Peripheral pulses: dorsalis pedis present (bilat dp signals) GI: Inspection: Yes normal to inspection Skin: General skin exam: no rashes or lesions noted Wounds: no wounds Neuro: General: oriented to person, oriented to place, oriented to time and CN's II-XI intact bilaterally Extrem: General: Yes normal to inspection, Yes full ROM and Yes no clubbing, cyanosis or edema Psych: Appearance: grossly normal and well kempt Speech and movement: Normal speech and movement present Affect: normal affect Progress Note: A&P Assessment and plan (1) PAD (peripheral artery disease): Status: Acute Assessment and Plan: Patient notes nonhealing ulcer of left leg. I have discussed the pathophysiology of peripheral vascular disease with the patient. I have also discussed risk factor modification. I have reviewed the patient's arterial testing which reveals multilevel disease including inflow. the patient would benefit from a left leg endovascular peripheral angiogram with possible angioplasty, stent, and/or atherectomy. This has been discussed in detail with the patient along with risks, benefits, and complications. This includes but is not limited to bleeding, infection, heart attack, need for emergent surgical repair, limb ischemia, blood vessel damage, bleeding, puncture, kidney injury, bruising, allergic reaction, and skin reaction. The patient demonstrates a clear understanding. We will schedule for the next appropriate time. Thank you for allowing us to assist in this patient's care. Fall Risk Details Current Medications: Current Medications Generic Name Dose Route Start Last Admin Trade Name Freq PRN Reason Stop Dose Admin Acetaminophen 650 mg 05/09/20 05:24 Acetaminophen 325 Mg Tablet PO Q6H PRN Pain, Mild (Pain Scale 1-3) Aspirin 81 mg 05/09/20 09:00 05/12/20 08:04 Aspirin Enteric Coated 81 Mg Tablet. PO 81 mg DAILY JORY Administration Atorvastatin Calcium 80 mg 05/09/20 09:00 05/12/20 08:05 Atorvastatin Calcium 80 Mg Tablet PO 80 mg DAILY JORY Administration Carvedilol 25 mg 05/09/20 09:00 05/11/20 20:43 Carvedilol 25 Mg Tablet PO 25 mg BID JORY Administration Protocol Docusate Sodium 100 mg 05/09/20 05:24 Docusate Sodium 100 Mg Capsule PO DAILY PRN Constipation Enoxaparin Sodium 40 mg 05/09/20 06:00 05/12/20 06:03 Enoxaparin Sodium 40 Mg/0.4 Ml Syringe SUBCUT 40 mg Q24H JORY Administration Escitalopram Oxalate 20 mg 05/09/20 09:00 05/12/20 08:04 Escitalopram Oxalate 20 Mg Tablet PO 20 mg DAILY JORY Administration Gabapentin 800 mg 05/09/20 09:00 05/12/20 08:04 Gabapentin 400 Mg Capsule PO 800 mg TID JORY Administration Piperacillin Sod/Tazobactam 50 mls @ 100 mls/hr 05/09/20 05:24 05/12/20 07:17 Sod 3.375 gm/ Sodium Chloride IV Infused Q6H JORY Infusion Vancomycin HCl 1,000 mg/ 270 mls @ 270 mls/hr 05/10/20 12:00 05/12/20 00:03 Sodium Chloride IV 20 mls/hr Q12H JORY Administration Sodium Chloride 1,000 mls @ 100 mls/hr 05/13/20 06:00 Ns IVCONT .Q10H ON LICENSE OF [facility] Insulin Glargine 7 unit 05/09/20 09:00 05/12/20 08:03 Insulin Glargine,Hum.Rec.Anlog 100 Unit/Ml 10 Ml Vial SUBCUT 7 unit DAILY JORY Administration Insulin Human Lispro 0 unit 05/09/20 07:30 05/12/20 08:04 Insulin Lispro 100 Unit/Ml 3 Ml Vial SUBCUT 4 unit QIDACHS ON LICENSE OF [facility] Administration Protocol Lisinopril 40 mg 05/09/20 09:00 05/11/20 10:08 Lisinopril 40 Mg Tablet PO 40 mg DAILY JORY Administration Protocol Mirtazapine 45 mg 05/09/20 21:00 05/11/20 20:43 Mirtazapine 15 Mg Tablet PO 45 mg BEDTIME JORY Administration Morphine Sulfate 4 mg 05/09/20 05:24 05/12/20 06:02 Morphine Sulfate 4 Mg/Ml Cartridge IVPUSH 4 mg Q4H PRN Administration Pain, Severe (Pain Scale 7-10) Multivitamins/Vitamin C 1 tab 05/09/20 09:00 05/12/20 08:05 Multivitamin Tablet PO 1 tab DAILY JORY Administration Omeprazole 20 mg 05/09/20 06:30 05/12/20 06:01 Omeprazole 20 Mg Capsule.Dr PO 20 mg DAILY@0630 ON LICENSE OF [facility] Administration Ondansetron HCl 4 mg 05/09/20 05:24 Ondansetron Hcl 4 Mg/2 Ml Vial IVPUSH Q8H PRN Nausea and Vomiting Oxycodone HCl 5 mg 05/09/20 05:24 05/12/20 00:29 Oxycodone Hcl Immed Release 5 Mg Tablet PO 5 mg Q4H PRN Administration Pain Pharmacy Consult 1 each 05/08/20 22:17 Consult Rx Perform Med Rec MISCELLANE ONCE PRN Consult order Pharmacy Consult 1 each 05/09/20 05:24 Consult Rx Vancomycin Dosing MISCELLANE DAILY PRN Consult order Sodium Chloride 3 ml 05/09/20 08:00 05/12/20 08:14 0.9 % Sodium Chloride Flush 3 Ml Syringe IVFLUSH 3 ml QSHIFT JORY Administration Time Spent With Patient Time: Total time spent is greater than 50% in coordination of care (as documented) at patient's floor/unit and/or counseling patient: Time with patient: 15 - 24 minutes
[2020-05-12] MEDS: carvediloL 25 MG TABLET PO ×2 (10:48→22:04)
[2020-05-12] MEDS: lisinopriL 40 MG TABLET PO (10:49)
[2020-05-12 11:55] LABS: Glucose, Whole Blood 176 mg/dL (60-115)
--- NOTE | 2020-05-12 14:00 | HO.PM.IMPN ---
Subjective Subjective Date of Service: 05/12/20 Interval History: No acute issues overnight, patient wants to know when she will be discharged home, good pain control left foot, no fever chills no other acute issues. General no fever no chills CLINICAL RESOURCE NURSE no headache no dizziness Respiratory no cough, no sputum production GI no nausea, no vomiting or diarrhea Physical Exam Vital Signs: Vital Signs: Last Vital Signs Temp 97.8 F 05/12/20 12:00 Pulse 71 05/12/20 12:00 Resp 18 05/12/20 12:00 BP 104/53 L 05/12/20 12:00 Pulse Ox 95 05/12/20 12:00 Body Mass Index 27.1 General patient resting comfortably in no acute distress. Neck is supple no JVD. CVS regular rate rhythm, Respiratory lungs clear to auscultation, no respiratory distress, no wheeze, no rhonchi. Gastrointestinal abdomen soft, nontender, bowel sounds audible, no guarding , no rigidity. Extremities right leg normal examination Left foot dressing to 4th and 5th toes in place no drainage noted, small superficial ulceration left leg with no drainage, left heel with no open sores Neuro decreased sensation, bilateral feet, speech clear. Skin no rash Objective Data Current Medications Generic Name Dose Route Start Last Admin Trade Name Freq PRN Reason Stop Dose Admin Acetaminophen 650 mg 05/09/20 05:24 Acetaminophen 325 Mg Tablet PO Q6H PRN Pain, Mild (Pain Scale 1-3) Aspirin 81 mg 05/09/20 09:00 05/12/20 08:04 Aspirin Enteric Coated 81 Mg Tablet. PO 81 mg DAILY JORY Administration Atorvastatin Calcium 80 mg 05/09/20 09:00 05/12/20 08:05 Atorvastatin Calcium 80 Mg Tablet PO 80 mg DAILY JORY Administration Carvedilol 25 mg 05/09/20 09:00 05/12/20 10:48 Carvedilol 25 Mg Tablet PO 25 mg BID JORY Administration Protocol Docusate Sodium 100 mg 05/09/20 05:24 Docusate Sodium 100 Mg Capsule PO DAILY PRN Constipation Enoxaparin Sodium 40 mg 05/09/20 06:00 05/12/20 06:03 Enoxaparin Sodium 40 Mg/0.4 Ml Syringe SUBCUT 40 mg Q24H JORY Administration Escitalopram Oxalate 20 mg 05/09/20 09:00 05/12/20 08:04 Escitalopram Oxalate 20 Mg Tablet PO 20 mg DAILY JORY Administration Gabapentin 800 mg 05/09/20 09:00 05/12/20 08:04 Gabapentin 400 Mg Capsule PO 800 mg TID [facility] Administration Piperacillin Sod/Tazobactam 50 mls @ 100 mls/hr 05/09/20 05:24 05/12/20 12:30 Sod 3.375 gm/ Sodium Chloride IV Infused Q6H JORY Infusion Vancomycin HCl 1,000 mg/ 270 mls @ 270 mls/hr 05/10/20 12:00 05/12/20 12:25 Sodium Chloride IV 20 mls/hr Q12H JORY Administration Sodium Chloride 1,000 mls @ 100 mls/hr 05/13/20 06:00 Ns IVCONT .Q10H [facility] Insulin Glargine 7 unit 05/09/20 09:00 05/12/20 08:03 Insulin Glargine,Hum.Rec.Anlog 100 Unit/Ml 10 Ml Vial SUBCUT 7 unit DAILY [facility] Administration Insulin Human Lispro 0 unit 05/09/20 07:30 05/12/20 12:29 Insulin Lispro 100 Unit/Ml 3 Ml Vial SUBCUT 2 unit QIDACHS [facility] Administration Protocol Lisinopril 40 mg 05/09/20 09:00 05/12/20 10:49 Lisinopril 40 Mg Tablet PO 40 mg DAILY [facility] Administration Protocol Mirtazapine 45 mg 05/09/20 21:00 05/11/20 20:43 Mirtazapine 15 Mg Tablet PO 45 mg BEDTIME JORY Administration Morphine Sulfate 4 mg 05/09/20 05:24 05/12/20 10:49 Morphine Sulfate 4 Mg/Ml Cartridge IVPUSH 4 mg Q4H PRN Administration Pain, Severe (Pain Scale 7-10) Multivitamins/Vitamin C 1 tab 05/09/20 09:00 05/12/20 08:05 Multivitamin Tablet PO 1 tab DAILY [facility] Administration Omeprazole 20 mg 05/09/20 06:30 05/12/20 06:01 Omeprazole 20 Mg Capsule.Dr PO 20 mg DAILY@0630 [facility] Administration Ondansetron HCl 4 mg 05/09/20 05:24 Ondansetron Hcl 4 Mg/2 Ml Vial IVPUSH Q8H PRN Nausea and Vomiting Oxycodone HCl 5 mg 05/09/20 05:24 05/12/20 00:29 Oxycodone Hcl Immed Release 5 Mg Tablet PO 5 mg Q4H PRN Administration Pain Pharmacy Consult 1 each 05/08/20 22:17 Consult Rx Perform Med Rec MISCELLANE ONCE PRN Consult order Pharmacy Consult 1 each 05/09/20 05:24 Consult Rx Vancomycin Dosing MISCELLANE DAILY PRN Consult order Sodium Chloride 3 ml 05/09/20 08:00 05/12/20 08:14 0.9 % Sodium Chloride Flush 3 Ml Syringe IVFLUSH 3 ml QSHIFT JORY Administration Labs CBC & Chem 7: 05/10/20 04:29 05/10/20 04:29 Microbiology Microbiology Results: Microbiology 05/08/20 22:52 Blood - Venous Blood Culture - Preliminary No growth after 48 hours. 05/08/20 22:52 Blood - Venous Blood Culture - Preliminary No growth after 48 hours. 05/09/20 05:53 Urine clean catch - Clean Catch Midstream Urine Culture - Final Assessment and Plan (1) PAD (peripheral artery disease): Status: Acute (2) Diabetic foot ulcer: Problem details: There is concern over diabetic foot infection There is osteomyelitis left fifth toe Diabetes risk Status: Acute (3) Osteomyelitis: Status: Acute (4) Infection of toe: Status: Acute (5) Uncontrolled diabetes mellitus: Status: Acute (6) HTN (hypertension): Status: Acute Assessment and Plan: 59-year-old female who presents to the hospital with complaints of nonhealing ulcers of her left foot. . Sent by wound clinic. # Nonhealing diabetic left foot ulcer, MRI foot suspicious for 5th toe osteomyelitis Better foot pain otherwise no fever, no chills, no leukocytosis. ESR 12, CRP 1.09, was on antibiotics for 2 weeks outpatient on IV vancomycin and Zosyn,day 4, patient seen by Dr. Lowery no debridement required cont. dry sterile dressing Patient seen by Dr. Castellanos she recommend 6 weeks of IV ertapenem blood cultures x2 negative Patient seen by Dr. Aragon, vascular surgeon he recommend angiogram scheduled for this Monday , abnormal duplex ultrasound left leg. Continue oxycodone and morphine for pain control # diabetes mellitus - blood sugars fluctuating, continue home insulin and low-dose sliding scale insulin - diabetic diet # hypertension - noted to have elevated blood pressure early a.m. repeat blood pressure is stable, continue carvedilol and lisinopril , follow BP closely # CAD - no chest pain continue aspirin and carvedilol. # GERD - continue PPI DVT prophylaxis:Lovenox
--- NOTE | 2020-05-12 15:01 | MHC.CLN ---
RE: CONSULT PT REPORTS 10% SIGNIFICANT WT LOSS X 6 MONTHS R/T MEDICATIONS SIDE EFFECT OF LOSS OF APPETITE NO S/S MALNUTRITION PO INTAKE REMAINS POOR DIET RX: 1800DM-APPROPRIATE RECOMMEND GLUCERNA BID AND ESTEBAN TO INCREASE KCALS SEE CLINICAL NUTRITION ASSESSMENT
[2020-05-12 16:53] LABS: Glucose, Whole Blood 182 mg/dL (60-115)
[2020-05-12 20:32] LABS: Glucose, Whole Blood 177 mg/dL (60-115)
[2020-05-12] MEDS: Mirtazapine 15 MG TABLET 45 MG PO (22:03)
[2020-05-13] VITALS (15 sets, daily range): BP systolic 117–188; BP diastolic 58–98; PULSE 66–89; RESP 14–20; TEMP 36.1–36.9; O2SAT 94–99
[2020-05-13] MEDS: vancomycin HCL 1,000 MG in 0.9 % Sodium Chloride 250 ML 270 MG IV ×2 (00:48→13:03)
[2020-05-13] MEDS: 0.9 % Sodium Chloride Flush 3 ML SYRINGE IVFLUSH ×2 (00:56→16:06)
[2020-05-13] MEDS: Piperacillin Sodium/Tazobactam 3.375 GM in 0.9 % Sodium Chloride 50 ML IV ×3 (05:10→18:21)
[2020-05-13] MEDS: 0.9 % Sodium Chloride 1,000 ML 100 ML IVCONT ×3 (05:51→16:28)
[2020-05-13] MEDS: Morphine Sulfate 4 MG/ML CARTRIDGE IVPUSH ×3 (06:04→20:25)
[2020-05-13] MEDS: Omeprazole 20 MG CAPSULE.DR PO (06:05)
[2020-05-13 07:29] LABS: Anion Gap 13 (12-20); Blood Urea Nitrogen 9 mg/dL (9-16); Calcium 7.7 mg/dL (8.4-10.2); Carbon Dioxide 27 mmol/L (22-29); Chloride 104 mmol/L (96-108); Creatinine Clr Calc Pharmacy 87.4; Estimated Glomerular Filt Rate > 60; Glucose Random 166 mg/dL (60-115); Potassium 4.5 mmol/L (3.3-5.1); Sodium 139 mmol/L (135-145)
[2020-05-13 07:44] LABS: Glucose, Whole Blood 156 mg/dL (60-115)
[2020-05-13] MEDS: Atorvastatin Calcium 80 MG TABLET PO (07:44)
[2020-05-13] MEDS: Gabapentin 400 MG CAPSULE 800 MG PO ×3 (07:44→20:31)
[2020-05-13] MEDS: carvediloL 25 MG TABLET PO ×2 (07:44→20:31)
[2020-05-13] MEDS: Escitalopram Oxalate 20 MG TABLET PO (07:44)
[2020-05-13] MEDS: lisinopriL 40 MG TABLET PO (07:44)
[2020-05-13] MEDS: oxyCODONE HCl Immed Release 5 MG TABLET PO ×3 (07:44→18:25)
[2020-05-13] MEDS: Multivitamin TABLET 1 TAB PO (07:44)
[2020-05-13] MEDS: Insulin Lispro 100 UNIT/ML 3 ML VIAL SUBCUT ×2 (07:45→16:16)
[2020-05-13] MEDS: Insulin Glargine,Hum.rec.anlog 100 UNIT/ML 10 ML VIAL 7 UNIT SUBCUT (07:45)
[2020-05-13 08:31] LABS: INTERNATIONAL NORM RATIO 1.2 (0.9-1.1); Prothrombin Time 14.3 SEC (10.8-13.0)
[2020-05-13 09:26] LABS: Glucose, Whole Blood 98 mg/dL (60-115)
--- NOTE | 2020-05-13 11:32 | P.OP_ITS ---
Operative Note Operative Note Date of Service: 05/13/20 Narrative: Angiogram report from [facility] Preoperative diagnosis: Atherosclerosis of left lower extremity with nonhealing ulcer Postoperative diagnosis: Same Procedure: 1. Ultrasound-guided right common femoral access 2. Aortogram with left lower extremity runoff Surgeon:Caleb Aragon M.D. Cashier Courtesy Booth:None Anesthesia: Local with moderate conscious sedation for a total of 25 minutes, performed by sd Specimens:none Drains:none Estimated blood loss: Less than 10 ml Indications: Patient was admitted to the hospital with nonhealing left lower e xtremity ulceration. Upon noninvasive workup she was noted to have atherosclerotic disease. There is concern of inflow and outflow disease on noninvasive ultrasound. She now presents for endovascular intervention. The patient has signed the informed consent after reviewing risks, complications, benefits, and alternatives previously discussed with the patient in my office. The patient was given the opportunity to ask any additional questions or voice any concerns. All questions were answered to the patient's satisfaction. Procedure in detail: Patient was brought to the angiography suite prior to which a time-out was called for patient identification and site verification. Bilateral groins were prepped and draped in the standard surgical fashion. Under ultrasound guidance right common femoral was punctured with micro puncture needle and wire. Subsequently a precision 4 Moldovan sheath was then placed. Sentence Lab wire was advanced to the level of the aorta. 4 Moldovan Flush catheter was brought up and parked at the level of the renal arteries. Aortogram was then undertaken. Catheter was brought down to the level of the iliac bifurcation. Iliacs were subsequently imaged. Catheter was then brought in up and over to the left side SFA. Runoff study was then undertaken. Multiple attempts were may 2 traverse this total occlusion of SFA. I was able to get a wire all the way down through the SFA but unable to re-enter the true lumen at the above knee popliteal level. Multiple orthogonal views injections were undertaken. We were unable to do so. At this point we terminated the procedure. Catheter wire sheath was brought back to the ipsilateral side and removed. Direct pressure was held for 10 minutes and adequate hemostasis was achieved. Interpretation of films: 1. Ultrasound demonstrates appropriate femoral puncture. Image of which was saved. 2. Aortogram demonstrates appropriate caliber aorta. Minimal disease. Appropriate take-off of the renals. 3. Iliac images demonstrate good flow through bilateral iliacs all the way down to the common femoral no atherosclerotic disease was noted. No significant tortuosity noted. 4. Left lower extremity demonstrated good flow down to the common femoral. Some mild to moderate common femoral disease. Normal flow through the profunda femorals. There is a total occlusion of the SFA that reconstituted at the above knee popliteal. Below knee there was 2 vessel runoff which appeared to be anterior tibial and peroneal which went all the way down to the foot. Conclusion: 1. Successful diagnostic angiogram. Patient will require left-sided fem-pop disease. Will try to coordinate for this admission. This note is constructed using voice recognition software. While every effort has been made to ensure accuracy, corporate statistical financial analyst errors may have been included. Thank you for allowing me to participate in the care of your patient. Yours sincerely, Caleb Aragon MD, FACS, R.P.V.I.
[2020-05-13] MEDS: iohexoL 300 MG/ML 100 ML INFUS..BTL IV (11:40)
[2020-05-13] MEDS: Lidocaine HCl 1 % MPF 5 ML VIAL 10 ML SUBCUT (11:41)
[2020-05-13 12:42] LABS: Glucose, Whole Blood 106 mg/dL (60-115)
--- NOTE | 2020-05-13 14:57 | HO.PM.IMPN ---
Subjective Subjective Date of Service: 05/14/20 Interval History: Patient offers no acute complaints is NPO for angiogram planned by Dr. Aragon this afternoon, no acute issues overnight, no fever chills. 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 Neck is supple no JVD. CVS regular rate rhythm, Respiratory lungs clear to auscultation, no respiratory distress, no wheeze, no rhonchi. Gastrointestinal abdomen soft, nontender, bowel sounds audible, no guarding , no rigidity. Extremities right leg normal examination Left foot dressing to 4th and 5th toes in place no drainage noted, small superficial ulceration left leg with no drainage, left heel with no open sores Neuro decreased sensation, bilateral feet, speech clear. Skin no rash Objective Data Current Medications Generic Name Dose Route Start Last Admin Trade Name Freq PRN Reason Stop Dose Admin Acetaminophen 650 mg 05/09/20 05:24 Acetaminophen 325 Mg Tablet PO Q6H PRN Pain, Mild (Pain Scale 1-3) Acetaminophen 650 mg 05/13/20 11:26 Acetaminophen 325 Mg Tablet PO Q6H PRN Pain, Mild (Pain Scale 1-3) Aspirin 81 mg 05/09/20 09:00 05/13/20 07:43 Aspirin Enteric Coated 81 Mg Tablet. PO Not Given DAILY JORY Atorvastatin Calcium 80 mg 05/09/20 09:00 05/13/20 07:44 Atorvastatin Calcium 80 Mg Tablet PO 80 mg DAILY JORY Administration Carvedilol 25 mg 05/09/20 09:00 05/13/20 07:44 Carvedilol 25 Mg Tablet PO 25 mg BID [facility] Administration Protocol Docusate Sodium 100 mg 05/09/20 05:24 Docusate Sodium 100 Mg Capsule PO DAILY PRN Constipation Enoxaparin Sodium 40 mg 05/09/20 06:00 05/13/20 07:43 Enoxaparin Sodium 40 Mg/0.4 Ml Syringe SUBCUT Not Given Q24H JORY Escitalopram Oxalate 20 mg 05/09/20 09:00 05/13/20 07:44 Escitalopram Oxalate 20 Mg Tablet PO 20 mg DAILY JORY Administration Gabapentin 800 mg 05/09/20 09:00 05/13/20 07:44 Gabapentin 400 Mg Capsule PO 800 mg TID JORY Administration Piperacillin Sod/Tazobactam 50 mls @ 100 mls/hr 05/09/20 05:24 05/13/20 13:54 Sod 3.375 gm/ Sodium Chloride IV Infused Q6H JORY Infusion Vancomycin HCl 1,000 mg/ 270 mls @ 270 mls/hr 05/10/20 12:00 05/13/20 14:06 Sodium Chloride IV Infused Q12H JORY Infusion Sodium Chloride 1,000 mls @ 100 mls/hr 05/13/20 06:00 05/13/20 05:51 Ns IVCONT 100 mls/hr .Q10H JORY Administration Sodium Chloride 1,000 mls @ 100 mls/hr 05/13/20 16:30 Ns IVCONT .Q10H JORY Insulin Glargine 7 unit 05/09/20 09:00 05/13/20 07:45 Insulin Glargine,Hum.Rec.Anlog 100 Unit/Ml 10 Ml Vial SUBCUT 7 unit DAILY JORY Administration Insulin Human Lispro 0 unit 05/09/20 07:30 05/13/20 13:54 Insulin Lispro 100 Unit/Ml 3 Ml Vial SUBCUT Not Given QIDACHS [facility] Protocol Lisinopril 40 mg 05/09/20 09:00 05/13/20 07:44 Lisinopril 40 Mg Tablet PO 40 mg DAILY JORY Administration Protocol Mirtazapine 45 mg 05/09/20 21:00 05/12/20 22:03 Mirtazapine 15 Mg Tablet PO 45 mg BEDTIME JORY Administration Morphine Sulfate 4 mg 05/09/20 05:24 05/13/20 06:04 Morphine Sulfate 4 Mg/Ml Cartridge IVPUSH 4 mg Q4H PRN Administration Pain, Severe (Pain Scale 7-10) Multivitamins/Vitamin C 1 tab 05/09/20 09:00 05/13/20 07:44 Multivitamin Tablet PO 1 tab DAILY JORY Administration Omeprazole 20 mg 05/09/20 06:30 05/13/20 06:05 Omeprazole 20 Mg Capsule.Dr PO 20 mg DAILY@0630 [facility] Administration Ondansetron HCl 4 mg 05/09/20 05:24 Ondansetron Hcl 4 Mg/2 Ml Vial IVPUSH Q8H PRN Nausea and Vomiting Oxycodone HCl 5 mg 05/09/20 05:24 05/13/20 12:26 Oxycodone Hcl Immed Release 5 Mg Tablet PO 5 mg Q4H PRN Administration Pain Oxycodone HCl 5 mg 05/13/20 11:26 Oxycodone Hcl Immed Release 5 Mg Tablet PO Q4H PRN Pain, Moderate (Pain Scale 4-6 Pharmacy Consult 1 each 05/08/20 22:17 Consult Rx Perform Med Rec MISCELLANE ONCE PRN Consult order Pharmacy Consult 1 each 05/09/20 05:24 Consult Rx Vancomycin Dosing MISCELLANE DAILY PRN Consult order Sodium Chloride 3 ml 05/09/20 08:00 05/13/20 07:43 0.9 % Sodium Chloride Flush 3 Ml Syringe IVFLUSH Not Given QSHIFT [facility] Labs CBC & Chem 7: 05/10/20 04:29 05/13/20 06:03 Microbiology Microbiology Results: Microbiology 05/08/20 22:52 Blood - Venous Blood Culture - Preliminary No growth after 48 hours. 05/08/20 22:52 Blood - Venous Blood Culture - Preliminary No growth after 48 hours. 05/09/20 05:53 Urine clean catch - Clean Catch Midstream Urine Culture - Final Assessment and Plan (1) Osteomyelitis: Status: Acute (2) PAD (peripheral artery disease): Status: Acute (3) Diabetic foot ulcer: Status: Acute (4) Infection of toe: Status: Acute (5) Uncontrolled diabetes mellitus: Status: Acute Assessment and Plan: 59-year-old female who presents to the hospital with complaints of nonhealing ulcers of her left foot. . Sent by wound clinic. # Nonhealing diabetic left foot ulcer, MRI foot suspicious for 5th toe osteomyelitis Better foot pain otherwise no fever, no chills, no leukocytosis. ESR 12, CRP 1.09, was on antibiotics for 2 weeks outpatient on IV vancomycin and Zosyn,day 5, patient seen by Dr. Lowery no debridement required cont. dry sterile dressing Patient seen by Dr. Castellanos she recommend 6 weeks of IV ertapenem upon discharge, blood cultures x2 negative Patient underwent angiogram this afternoon and will require left-sided fem-pop bypass, to be arranged by Dr. Aragon. Continue oxycodone and morphine for pain control # diabetes mellitus - blood sugars stable, continue home insulin and low-dose sliding scale insulin - diabetic diet # hypertension - stable, continue carvedilol and lisinopril , follow BP closely # CAD - no chest pain continue aspirin and carvedilol. # GERD - continue PPI DVT prophylaxis:Lovenox
[2020-05-13 16:13] LABS: Glucose, Whole Blood 188 mg/dL (60-115)
[2020-05-13 20:27] LABS: Glucose, Whole Blood 148 mg/dL (60-115)
[2020-05-13] MEDS: Mirtazapine 15 MG TABLET 45 MG PO (20:31)
[2020-05-13 23:25] LABS: Vancomycin Trough 13.5 mcg/mL (10.0-20.0)
[2020-05-14] VITALS (12 sets, daily range): BP systolic 133–187; BP diastolic 37–75; PULSE 72–83; RESP 16–19; TEMP 36.6–37.8; O2SAT 93–96
--- NOTE | 2020-05-14 | ECG_ITS ---
Test Reason : PRE OP Blood Pressure : / mmHG Vent. Rate : 073 BPM Atrial Rate : 073 BPM P-R Int : 124 ms QRS Dur : 080 ms QT Int : 400 ms P-R-T Axes : 030 -05 -22 degrees QTc Int : 440 ms Normal sinus rhythm Nonspecific T wave abnormality Abnormal ECG When compared with ECG of 16-JAN-2020 10:34, No significant change was found Referred By: Ghanshyam Daniel Electronically Signed By:CAROLYNE ECHOLS MD
[2020-05-14] MEDS: Piperacillin Sodium/Tazobactam 3.375 GM in 0.9 % Sodium Chloride 50 ML IV ×5 (00:06→23:01)
[2020-05-14] MEDS: vancomycin HCL 1,000 MG in 0.9 % Sodium Chloride 250 ML 270 MG IV ×3 (00:49→23:52)
[2020-05-14] MEDS: 0.9 % Sodium Chloride 1,000 ML 100 ML IVCONT ×2 (03:41→17:03)
[2020-05-14] MEDS: Morphine Sulfate 4 MG/ML CARTRIDGE IVPUSH (04:06)
[2020-05-14] MEDS: Omeprazole 20 MG CAPSULE.DR PO (05:37)
[2020-05-14] MEDS: Enoxaparin Sodium 40 MG/0.4 ML SYRINGE SUBCUT (05:38)
--- NOTE | 2020-05-14 07:00 | CA_ITS ---
Transthoracic Echocardiogram Patient (Last, First, Middle): Rocío Hallman, Gender: Female Date of : 1960 Age: 59 Procedure Date: 05/14/2020 Procedure Type: Transthoracic Echocardiogram Location: S3W Height: 157.48 cm Weight: 67.13 kg BSA: 1.68 m2 Heart Rate: bpm BP: 140 / 49 mmHg Psychological Stress Evaluator: BUD Referring MD: Caleb Aragon MD Symptoms: risk strat for fem-pop Study Quality: Fair Conclusions: - Normal left ventricular size and systolic function. - Normal right ventricular cavity size and systolic function. - There is mild aortic valve stenosis. Findings Left Ventricle Normal left ventricular size and systolic function. There is mildly increased left ventricular wall thickness. The visually estimated ejection fraction is between 60-65%. There is no evidence of regional wall motion abnormalities. Diastolic function is normal for age. Right Ventricle Normal right ventricular cavity size and systolic function. Atria The left atrium is mildly dilated. The right atrium is normal in size. Aortic Valve There is mild calcification of the aortic valve. There is mild thickening of the aortic valve. There is mild aortic valve stenosis. There is no aortic valve regurgitation. Mitral Valve The mitral valve appears normal. There is no mitral valve regurgitation. There is no mitral valve stenosis. Pulmonic Valve Normal pulmonic valve structure and function. There is no pulmonic valve regurgitation. Tricuspid Valve Normal tricuspid valve structure and function. There is trace tricuspid valve regurgitation. Normal right atrial pressure. There is no evidence of pulmonary hypertension. Great Vessels All visible segments of the aorta are normal in size. The visualized portions of the pulmonary artery and branches are normal. Venous The inferior vena cava is normal in size and collapses greater than 50% with inspiration. Pericardium/Pleural There is no evidence of pericardial effusion. Prior Study Comparison Changes noted compared to prior study dated: 03/25/2019. Diastolic function appears normal. Measurements 2D Linear Measurements IVSd: 1.14 0.6-0.9/0.6-1.0 cm LVIDd: 3.94 3.9-5.3/4.2-5.9 cm LVIDd Index: 2.35 2.4-3.2/2.2-3.1 cm/m2 LVIDs: 2.95 2.0-3.6 cm LVPWd: 1.14 0.7-1.1 cm Ao Root: 2.90 2.1-3.5 cm LA Diam: 3.70 2.7-3.8/3.0-4.0 cm LAIDs Index: 2.20 1.5-2.3 cm/m2 LV Mass: 186.66 67-162/88-224 g LV Mass Index: 111.11 43-95/49-115 g/m2 LVOT Diam: 2.10 3.0+(-)1.3 cm Mitral Valve MV Pk E: 1.11 MV PK A: 0.81 MV Decel Time: 158.00 E/A: 1.40 E'Lateral: 9.28 E'Medial: 8.22 E/E' Med: 13.50 E/E' Lat: 12.00 PHT: 46.00 MVA PHT: 4.78 Decel Gage: 7.00 Aortic Valve AoV Pk Kuldip: 2.36 AoV Mn Kuldip: 1.76 AoV VTI: 0.52 AoV Pk Grad: 22.00 Aov Mn Grad: 14.00 YESIKA Cont.VTI: 1.71 LVOT LVOT Pk Kuldip: 1.02 LVOT Mn Kuldip: 0.74 LVOT VTI: 0.26 LVOT Pk Grad: 4.00 LVOT Mn Grad: 2.00 LVOT Diam: 2.10 LVOT Area: 3.46 Diastolic Function MV Pk E: 1.11 MV Pk A: 0.81 E/A: 1.40 E'Medial: 8.22 E/E' Med: 13.50 E' Laterial: 9.28 E/E' Lat: 12.00 Tricuspid Valve TR Pk Kuldip: 1.38 TR Pk Grad: 8.00 RA Press: 8.00 RVSP: 16.00 Great Vessels Aorta Ao Root-2D: 2.90 2.0-3.7 cm Ao Asc: 3.10 2.1-3.4 cm Ao Arch: 2.80 Updated in Other Vendor System with Status of Final Ghanshyam Daniel MD electronically signed on 05/14/2020 6:29:31 PM with status of Final
[2020-05-14 07:50] LABS: Glucose, Whole Blood 168 mg/dL (60-115)
[2020-05-14] MEDS: Insulin Glargine,Hum.rec.anlog 100 UNIT/ML 10 ML VIAL 7 UNIT SUBCUT (08:29)
[2020-05-14] MEDS: Insulin Lispro 100 UNIT/ML 3 ML VIAL SUBCUT ×2 (08:31→16:29)
[2020-05-14] MEDS: Gabapentin 400 MG CAPSULE 800 MG PO ×3 (08:33→21:22)
[2020-05-14] MEDS: Multivitamin TABLET 1 TAB PO (08:33)
[2020-05-14] MEDS: lisinopriL 40 MG TABLET PO (08:33)
[2020-05-14] MEDS: Aspirin Enteric Coated 81 MG TABLET.DR PO (08:34)
[2020-05-14] MEDS: Escitalopram Oxalate 20 MG TABLET PO (08:34)
[2020-05-14] MEDS: carvediloL 25 MG TABLET PO ×2 (08:34→21:22)
[2020-05-14] MEDS: Atorvastatin Calcium 80 MG TABLET PO (08:34)
--- NOTE | 2020-05-14 10:59 | PM.CNCAR ---
History of Present Illness History of Present Illness Date of Service: 05/14/20 Requesting physician: Caleb Aragon Chief complaint: DIABETIC FOOT ULCER Narrative: 59-year-old female with background history of diabetes, hypertension and coronary disease with 60 -70% RCA stenosis which was assessed with FFR in the past which was normal. She presented to [facility] now with left foot ulcers which was nonhealing. She had pain in the foot with some redness and swelling with some discharge. She was seen by Dr. Aragon and then taken for peripheral angiogram. She was noticed to have total occlusion of the superficial femoral artery. Below the knee there were 2 vessel runoff of anterior tibial and peroneal arteries we have been asked to assess her perioperative cardiovascular risk. She denies any chest discomfort shortness of breath. As mentioned above she has coronary disease involving the right coronary artery which was moderate and negative by physiologic assessment in the past. Review of Systems Review of Systems: Left foot pain Yes all other systems are reviewed and are negative [facility] Past Medical History Medical History Arthritis Asthma CAD (coronary artery disease) Cyst (solitary) of breast Diabetes H. pylori infection HTN (hypertension) Kidney calculi Family History Family History Mother Diabetes Liver cancer Family history: reviewed and not pertinent Surgical History Surgical History History of breast surgery History of cardiac cath History of esophagogastroduodenoscopy (EGD) Hx of colonoscopy Social History Social History Household Members: Spouse and Family Housing: Apartment Alcohol intake: current Alcohol intake frequency: does not drink Smoking Status: Current every day smoker Tobacco Type: Cigarette Cigarettes Per Day: 2 Second Hand Smoke Exposure: No service: No Current occupational status: unemployed and disabled Meds Allergies Allergy/AdvReac Type Severity Reaction Status Date / Time latex [LATEX] Allergy Unknown RASH Verified 05/08/20 22:16 naproxen [From NAPROSYN] Allergy Unknown TACHYCARDIA Verified 05/08/20 22:16 Active Medications: Current Medications Generic Name Dose Route Start Last Admin Trade Name Freq PRN Reason Stop Dose Admin Acetaminophen 650 mg 05/09/20 05:24 Acetaminophen 325 Mg Tablet PO Q6H PRN Pain, Mild (Pain Scale 1-3) Acetaminophen 650 mg 05/13/20 11:26 Acetaminophen 325 Mg Tablet PO Q6H PRN Pain, Mild (Pain Scale 1-3) Aspirin 81 mg 05/09/20 09:00 05/14/20 08:34 Aspirin Enteric Coated 81 Mg Tablet.Dr PO 81 mg DAILY JORY Administration Atorvastatin Calcium 80 mg 05/09/20 09:00 05/14/20 08:34 Atorvastatin Calcium 80 Mg Tablet PO 80 mg DAILY JORY Administration Carvedilol 25 mg 05/09/20 09:00 05/14/20 08:34 Carvedilol 25 Mg Tablet PO 25 mg BID JORY Administration Protocol Docusate Sodium 100 mg 05/09/20 05:24 Docusate Sodium 100 Mg Capsule PO DAILY PRN Constipation Enoxaparin Sodium 40 mg 05/09/20 06:00 05/14/20 05:38 Enoxaparin Sodium 40 Mg/0.4 Ml Syringe SUBCUT 40 mg Q24H JORY Administration Escitalopram Oxalate 20 mg 05/09/20 09:00 05/14/20 08:34 Escitalopram Oxalate 20 Mg Tablet PO 20 mg DAILY JORY Administration Gabapentin 800 mg 05/09/20 09:00 05/14/20 08:33 Gabapentin 400 Mg Capsule PO 800 mg TID JORY Administration Piperacillin Sod/Tazobactam 50 mls @ 100 mls/hr 05/09/20 05:24 05/14/20 05:57 Sod 3.375 gm/ Sodium Chloride IV Infused Q6H JORY Infusion Vancomycin HCl 1,000 mg/ 270 mls @ 270 mls/hr 05/10/20 12:00 05/14/20 01:56 Sodium Chloride IV Infused Q12H JORY Infusion Sodium Chloride 1,000 mls @ 100 mls/hr 05/13/20 06:00 05/14/20 04:34 Ns IVCONT Infused .Q10H JORY Infusion Sodium Chloride 1,000 mls @ 100 mls/hr 05/13/20 16:30 05/14/20 03:41 Ns IVCONT 100 mls/hr .Q10H JORY Administration Insulin Glargine 7 unit 05/09/20 09:00 05/14/20 08:29 Insulin Glargine,Hum.Rec.Anlog 100 Unit/Ml 10 Ml Vial SUBCUT 7 unit DAILY [facility] Administration Insulin Human Lispro 0 unit 05/09/20 07:30 05/14/20 08:31 Insulin Lispro 100 Unit/Ml 3 Ml Vial SUBCUT 2 unit QIDACHS [facility] Administration Protocol Lisinopril 40 mg 05/09/20 09:00 05/14/20 08:33 Lisinopril 40 Mg Tablet PO 40 mg DAILY [facility] Administration Protocol Mirtazapine 45 mg 05/09/20 21:00 05/13/20 20:31 Mirtazapine 15 Mg Tablet PO 45 mg BEDTIME [facility] Administration Multivitamins/Vitamin C 1 tab 05/09/20 09:00 05/14/20 08:33 Multivitamin Tablet PO 1 tab DAILY [facility] Administration Omeprazole 20 mg 05/09/20 06:30 05/14/20 05:37 Omeprazole 20 Mg Capsule.Dr PO 20 mg DAILY@0630 [facility] Administration Ondansetron HCl 4 mg 05/09/20 05:24 Ondansetron Hcl 4 Mg/2 Ml Vial IVPUSH Q8H PRN Nausea and Vomiting Oxycodone HCl 5 mg 05/13/20 11:26 05/13/20 18:25 Oxycodone Hcl Immed Release 5 Mg Tablet PO 5 mg Q4H PRN Administration Pain, Moderate (Pain Scale 4-6 Pharmacy Consult 1 each 05/08/20 22:17 Consult Rx Perform Med Rec MISCELLANE ONCE PRN Consult order Pharmacy Consult 1 each 05/09/20 05:24 Consult Rx Vancomycin Dosing MISCELLANE DAILY PRN Consult order Sodium Chloride 3 ml 05/09/20 08:00 05/14/20 08:32 0.9 % Sodium Chloride Flush 3 Ml Syringe [facility]USH [facility] Medications Medication Instructions Recorded Confirmed Last Taken Type metformin 1,000 mg PO BID 12/22/19 05/09/20 05/08/20 08:00 History aspirin 81 mg tablet,delayed 81 mg PO DAILY 01/02/20 05/09/20 05/08/20 08:00 History release atorvastatin 80 mg tablet 80 mg PO DAILY 01/02/20 05/09/20 05/08/20 08:00 History carvedilol 25 mg tablet 25 mg PO BID 01/02/20 05/09/20 05/08/20 20:00 History escitalopram oxalate 20 mg tablet 20 mg PO DAILY 01/02/20 05/09/20 05/08/20 08:00 History ferrous sulfate 325 mg (65 mg 325 mg PO BID 01/02/20 05/09/20 05/08/20 20:00 History iron) tablet gabapentin 800 mg tablet 800 mg PO TID 01/02/20 05/09/20 05/08/20 20:00 History insulin degludec 100 unit/mL (3 10 unit SUBCUT DAILY 01/02/20 05/09/20 Unknown History mL) subcutaneous pen insulin lispro 100 unit/mL 2 sliding scale dose SUBCUT 01/02/20 05/09/20 Unknown History subcutaneous cartridge USEASDIRECTD lisinopril 40 mg tablet 40 mg PO DAILY 01/02/20 05/09/20 05/08/20 08:00 History mirtazapine 45 mg tablet 45 mg PO DAILY 01/02/20 05/09/20 05/08/20 08:00 History multivitamin 1 tab PO DAILY 01/02/20 05/09/20 05/08/20 08:00 History oxycodone 5 mg capsule 5 mg PO NEEDED PRN 01/02/20 05/09/20 Unknown History pioglitazone 45 mg tablet 45 mg PO DAILY 01/02/20 05/09/20 05/07/20 20:00 History pantoprazole 40 mg tablet,delayed 40 mg PO DAILY tab 03/03/20 05/09/20 05/08/20 08:00 History release Physical Exam Vital Signs: Vital Signs: Last Vital Signs Temp 99 F 05/14/20 08:29 Pulse 79 05/14/20 08:34 Resp 16 05/14/20 08:29 BP 147/42 H 05/14/20 08:34 Pulse Ox 93 05/14/20 08:29 Body Mass Index 27.1 GENERAL APPEARANCE: in no acute distress, well developed, well nourished. HEENT: unremarkable. HEAD: normocephalic, atraumatic. NECK/THYROID: no carotid bruit, no jugular venous distention. SKIN: no suspicious lesions, warm and dry. HEART: no murmurs, regular rate and rhythm, S1, S2 normal. LUNGS: clear to auscultation bilaterally. ABDOMEN: normal, bowel sounds present, soft, nontender, nondistended. EXTREMITIES: no clubbing, cyanosis, or edema. Left foot is dressed right now. PERIPHERAL PULSES: equal. NEUROLOGIC: nonfocal, alert and oriented. PSYCH: mood/affect full range. Results Labs and Meds Result diagrams: 05/10/20 04:29 05/13/20 06:03 Lab results: Laboratory Results - last 24 hr 05/13/20 05/13/20 05/13/20 12:38 16:05 20:17 POC Glucose 106 188 H 148 H Vancomycin Trough 05/13/20 05/14/20 22:39 07:38 POC Glucose 168 H Vancomycin Trough 13.5 Assessment and Plan (1) PAD (peripheral artery disease): Status: Acute (2) Diabetic foot ulcer: Problem details: There is concern over diabetic foot infection There is osteomyelitis left fifth toe Diabetes risk Status: Acute (3) Preoperative cardiovascular examination: Status: Acute Pleasant 59-year-old female with background history of diabetes, hypertension and known coronary artery disease with the moderate right coronary artery stenosis which was negative on fractional flow reserve assessment in the past. She had no chest pain or shortness of breath. She is presenting with left foot pain and has a nonhealing ulcer. She has SFA occlusion on peripheral angiogram and is being assessed for fem-pop bypass surgery. Please repeat EKG. She should stay on baby aspirin and her carvedilol as before. I think she is intermediate risk for perioperative cardiovascular complications. She does not need stress testing right now. We will follow along with you. Thank you for allowing me to participate in the care of your patient. Please feel free to contact me if you have any questions.
--- NOTE | 2020-05-14 11:12 | MHC.CLN ---
F/U PO INTAKE VARIABLE DIET RX: 2200DM-WILL RE-START 1800DM TO MEET NEEDS RE-START GLUCERNA BID AND ESTEBAN TO INCREASE KCALS SEE CLINICAL NUTRITION ASSESSMENT MONITOR PO INTAKE CLOSELY
[2020-05-14 11:50] LABS: Glucose, Whole Blood 140 mg/dL (60-115)
--- NOTE | 2020-05-14 13:08 | HO.VASCPN ---
Subjective Subjective Date of Service: 05/14/20 Patient reports: no new complaints Interval history: Patient is routine follow-up for nonhealing left lower extremity ulcer. She has undergone diagnostic angiogram. She is in need of fem-pop bypass. She has had no interval issues overnight. Resting fairly comfortably. Pain is well controlled. Physical Exam Vital Signs: Vital Signs: Last Vital Signs Temp 100.1 F 05/14/20 11:58 Pulse 74 05/14/20 11:58 Resp 16 05/14/20 11:58 BP 141/66 H 05/14/20 11:58 Pulse Ox 93 05/14/20 11:58 Body Mass Index 27.1 Const: General: cooperative, healthy appearing and no acute distress Orientation/consciousness: oriented to person, oriented to place and oriented to time HENMT: Head: Yes normal to inspection Neck: Carotids: no bruits Chest: Chest palpation & inspection: normal inspection of the chest Resp: Effort & Inspection: normal respiratory effort and able to speak in complete sentences Auscultation: clear to auscultation bilaterally Cardio: Rate: regular rate Heart sounds: S1 normal heart sound present and S2 normal heart sound present GI: Inspection: Yes normal to inspection Skin: General skin exam: no rashes or lesions noted Wounds: wounds noted (Left foot) Neuro: General: oriented to person, oriented to place, oriented to time and CN's II-XI intact bilaterally Extrem: General: Yes normal to inspection, Yes full ROM and Yes no clubbing, cyanosis or edema Psych: Appearance: grossly normal and well kempt Speech and movement: Normal speech and movement present Affect: normal affect Progress Note: A&P Assessment and plan (1) PAD (peripheral artery disease): Status: Acute Assessment and Plan: In short patient will need a fem-pop bypass. We are waiting cardiac risk stratification and echo testing today. Should that be stable will schedule her for Monday. Thank you for allowing us to participate in her care. If there are any questions or concerns please do not hesitate to contact us. Fall Risk Details Current Medications: Current Medications Generic Name Dose Route Start Last Admin Trade Name Freq PRN Reason Stop Dose Admin Acetaminophen 650 mg 05/09/20 05:24 Acetaminophen 325 Mg Tablet PO Q6H PRN Pain, Mild (Pain Scale 1-3) Acetaminophen 650 mg 05/13/20 11:26 Acetaminophen 325 Mg Tablet PO Q6H PRN Pain, Mild (Pain Scale 1-3) Aspirin 81 mg 05/09/20 09:00 05/14/20 08:34 Aspirin Enteric Coated 81 Mg Tablet.Dr PO 81 mg DAILY [facility] Administration Atorvastatin Calcium 80 mg 05/09/20 09:00 05/14/20 08:34 Atorvastatin Calcium 80 Mg Tablet PO 80 mg DAILY [facility] Administration Carvedilol 25 mg 05/09/20 09:00 05/14/20 08:34 Carvedilol 25 Mg Tablet PO 25 mg BID [facility] Administration Protocol Docusate Sodium 100 mg 05/09/20 05:24 Docusate Sodium 100 Mg Capsule PO DAILY PRN Constipation Enoxaparin Sodium 40 mg 05/09/20 06:00 05/14/20 05:38 Enoxaparin Sodium 40 Mg/0.4 Ml Syringe SUBCUT 40 mg Q24H [facility] Administration Escitalopram Oxalate 20 mg 05/09/20 09:00 05/14/20 08:34 Escitalopram Oxalate 20 Mg Tablet PO 20 mg DAILY [facility] Administration Gabapentin 800 mg 05/09/20 09:00 05/14/20 08:33 Gabapentin 400 Mg Capsule PO 800 mg TID [facility] Administration Piperacillin Sod/Tazobactam 50 mls @ 100 mls/hr 05/09/20 05:24 05/14/20 12:43 Sod 3.375 gm/ Sodium Chloride IV Infused Q6H [facility] Infusion Vancomycin HCl 1,000 mg/ 270 mls @ 270 mls/hr 05/10/20 12:00 05/14/20 12:47 Sodium Chloride IV 270 mls/hr Q12H [facility] Administration Sodium Chloride 1,000 mls @ 100 mls/hr 05/13/20 06:00 05/14/20 12:48 Ns IVCONT Not Given .Q10H [facility] Sodium Chloride 1,000 mls @ 100 mls/hr 05/13/20 16:30 05/14/20 03:41 Ns IVCONT 100 mls/hr .Q10H [facility] Administration Insulin Glargine 7 unit 05/09/20 09:00 05/14/20 08:29 Insulin Glargine,Hum.Rec.Anlog 100 Unit/Ml 10 Ml Vial SUBCUT 7 unit DAILY [facility] Administration Insulin Human Lispro 0 unit 05/09/20 07:30 05/14/20 11:44 Insulin Lispro 100 Unit/Ml 3 Ml Vial SUBCUT Not Given QIDACHS [facility] Protocol Lisinopril 40 mg 05/09/20 09:00 05/14/20 08:33 Lisinopril 40 Mg Tablet PO 40 mg DAILY [facility] Administration Protocol Mirtazapine 45 mg 05/09/20 21:00 05/13/20 20:31 Mirtazapine 15 Mg Tablet PO 45 mg BEDTIME [facility] Administration Multivitamins/Vitamin C 1 tab 05/09/20 09:00 05/14/20 08:33 Multivitamin Tablet PO 1 tab DAILY [facility] Administration Omeprazole 20 mg 05/09/20 06:30 05/14/20 05:37 Omeprazole 20 Mg Capsule.Dr PO 20 mg DAILY@0630 [facility] Administration Ondansetron HCl 4 mg 05/09/20 05:24 Ondansetron Hcl 4 Mg/2 Ml Vial IVPUSH Q8H PRN Nausea and Vomiting Oxycodone HCl 5 mg 05/13/20 11:26 05/13/20 18:25 Oxycodone Hcl Immed Release 5 Mg Tablet PO 5 mg Q4H PRN Administration Pain, Moderate (Pain Scale 4-6 Pharmacy Consult 1 each 05/08/20 22:17 Consult Rx Perform Med Rec MISCELLANE ONCE PRN Consult order Pharmacy Consult 1 each 05/09/20 05:24 Consult Rx Vancomycin Dosing MISCELLANE DAILY PRN Consult order Sodium Chloride 3 ml 05/09/20 08:00 05/14/20 08:32 0.9 % Sodium Chloride Flush 3 Ml Syringe IVFLUSH Not Given QSHICHI [facility] Time Spent With Patient Time: Total time spent is greater than 50% in coordination of care (as documented) at patient's floor/unit and/or counseling patient: Time with patient: 15 - 24 minutes
--- NOTE | 2020-05-14 15:08 | MHC.CM.PN ---
PER REVIEW OF VASCULAR NOTE, PLAN IS FOR FEM-POP ON Monday05/18/2020. CASE MANAGEMENT FOLLOWING
[2020-05-14] MEDS: oxyCODONE HCl Immed Release 5 MG TABLET PO (16:09)
[2020-05-14 16:16] LABS: Glucose, Whole Blood 259 mg/dL (60-115)
--- NOTE | 2020-05-14 16:49 | HO.PM.IMPN ---
Subjective Subjective Date of Service: 05/15/20 Interval History: Patient awake alert offers no acute complaints, complaining of persistent left foot pain. ROS General no headache, no dizziness no fever chills. CVS no chest pain, no palpitation. Respiratory no cough no sob Gastrointestinal no nausea, no vomiting, no abdominal pain,no diarrhea Physical Exam Vital Signs: Vital Signs: Last Vital Signs Temp 99.2 F 05/14/20 13:30 Pulse 74 05/14/20 11:58 Resp 16 05/14/20 11:58 BP 141/66 H 05/14/20 11:58 Pulse Ox 93 05/14/20 11:58 Body Mass Index 27.1 General patient resting comfortably in no acute distress. Neck is supple no JVD. CVS regular rate rhythm, Respiratory lungs clear to auscultation, no respiratory distress, no wheeze, no rhonchi. Gastrointestinal abdomen soft, nontender, bowel sounds audible, no guarding , no rigidity. Extremities right leg normal examination Left foot dressing to 4th and 5th toes in place no drainage noted, small superficial ulceration left leg with no drainage, left heel with no open sores, mild swelling left lower ext Neuro decreased sensation of both feet, speech clear. Skin no rash Objective Data Current Medications Generic Name Dose Route Start Last Admin Trade Name Freq PRN Reason Stop Dose Admin Acetaminophen 650 mg 05/09/20 05:24 Acetaminophen 325 Mg Tablet PO Q6H PRN Pain, Mild (Pain Scale 1-3) Acetaminophen 650 mg 05/13/20 11:26 Acetaminophen 325 Mg Tablet PO Q6H PRN Pain, Mild (Pain Scale 1-3) Aspirin 81 mg 05/09/20 09:00 05/14/20 08:34 Aspirin Enteric Coated 81 Mg Tablet. PO 81 mg DAILY [facility] Administration Atorvastatin Calcium 80 mg 05/09/20 09:00 05/14/20 08:34 Atorvastatin Calcium 80 Mg Tablet PO 80 mg DAILY [facility] Administration Carvedilol 25 mg 05/09/20 09:00 05/14/20 08:34 Carvedilol 25 Mg Tablet PO 25 mg BID [facility] Administration Protocol Docusate Sodium 100 mg 05/09/20 05:24 Docusate Sodium 100 Mg Capsule PO DAILY PRN Constipation Enoxaparin Sodium 40 mg 05/09/20 06:00 05/14/20 05:38 Enoxaparin Sodium 40 Mg/0.4 Ml Syringe SUBCUT 40 mg Q24H [facility] Administration Escitalopram Oxalate 20 mg 05/09/20 09:00 05/14/20 08:34 Escitalopram Oxalate 20 Mg Tablet PO 20 mg DAILY [facility] Administration Gabapentin 800 mg 05/09/20 09:00 05/14/20 14:28 Gabapentin 400 Mg Capsule PO 800 mg TID [facility] Administration Piperacillin Sod/Tazobactam 50 mls @ 100 mls/hr 05/09/20 05:24 05/14/20 12:43 Sod 3.375 gm/ Sodium Chloride IV Infused Q6H [facility] Infusion Vancomycin HCl 1,000 mg/ 270 mls @ 270 mls/hr 05/10/20 12:00 05/14/20 14:00 Sodium Chloride IV Infused Q12H [facility] Infusion Sodium Chloride 1,000 mls @ 100 mls/hr 05/13/20 06:00 05/14/20 12:48 Ns IVCONT Not Given .Q10H [facility] Sodium Chloride 1,000 mls @ 100 mls/hr 05/13/20 16:30 05/14/20 14:01 Ns IVCONT Infused .Q10H [facility] Infusion Insulin Glargine 7 unit 05/09/20 09:00 05/14/20 08:29 Insulin Glargine,Hum.Rec.Anlog 100 Unit/Ml 10 Ml Vial SUBCUT 7 unit DAILY [facility] Administration Insulin Human Lispro 0 unit 05/09/20 07:30 05/14/20 16:29 Insulin Lispro 100 Unit/Ml 3 Ml Vial SUBCUT 6 unit QIDACHS [facility] Administration Protocol Lisinopril 40 mg 05/09/20 09:00 05/14/20 08:33 Lisinopril 40 Mg Tablet PO 40 mg DAILY [facility] Administration Protocol Mirtazapine 45 mg 05/09/20 21:00 05/13/20 20:31 Mirtazapine 15 Mg Tablet PO 45 mg BEDTIME [facility] Administration Multivitamins/Vitamin C 1 tab 05/09/20 09:00 05/14/20 08:33 Multivitamin Tablet PO 1 tab DAILY [facility] Administration Omeprazole 20 mg 05/09/20 06:30 05/14/20 05:37 Omeprazole 20 Mg Capsule.Dr PO 20 mg DAILY@0630 [facility] Administration Ondansetron HCl 4 mg 05/09/20 05:24 Ondansetron Hcl 4 Mg/2 Ml Vial IVPUSH Q8H PRN Nausea and Vomiting Oxycodone HCl 5 mg 05/13/20 11:26 05/14/20 16:09 Oxycodone Hcl Immed Release 5 Mg Tablet PO 5 mg Q4H PRN Administration Pain, Moderate (Pain Scale 4-6 Pharmacy Consult 1 each 05/08/20 22:17 Consult Rx Perform Med Rec MISCELLANE ONCE PRN Consult order Pharmacy Consult 1 each 05/09/20 05:24 Consult Rx Vancomycin Dosing MISCELLANE DAILY PRN Consult order Sodium Chloride 3 ml 05/09/20 08:00 05/14/20 15:54 0.9 % Sodium Chloride Flush 3 Ml Syringe IVFLUSH Not Given QSHIFT [facility] Labs CBC & Chem 7: 05/10/20 04:29 05/13/20 06:03 Microbiology Microbiology Results: Microbiology 05/08/20 22:52 Blood - Venous Blood Culture - Final No growth after 5 days. 05/08/20 22:52 Blood - Venous Blood Culture - Final No growth after 5 days. 05/09/20 05:53 Urine clean catch - Clean Catch Midstream Urine Culture - Final Assessment and Plan (1) Osteomyelitis: Status: Acute (2) PAD (peripheral artery disease): Status: Acute (3) Diabetic foot ulcer: Status: Acute (4) Infection of toe: Status: Acute (5) Uncontrolled diabetes mellitus: Status: Acute (6) HTN (hypertension): Status: Acute Assessment and Plan: 59-year-old female who presents to the hospital with complaints of nonhealing ulcers of her left foot. . Sent by wound clinic. # Nonhealing diabetic left foot ulcer, MRI foot suspicious for 5th toe osteomyelitis left foot pain, otherwise no fever, no chills, no leukocytosis. ESR 12, CRP 1.09, was on antibiotics for 2 weeks outpatient on IV vancomycin and Zosyn,day 6, patient seen by Dr. Lowery no debridement required cont. dry sterile dressing Patient seen by Dr. Castellanos she recommend 6 weeks of IV ertapenem upon discharge, blood cultures x2 negative Patient underwent angiogram 05/13 and will require left-sided fem-pop bypass, to be arranged by Dr. Aragon, patient will under go preop eval by Cardiology. Continue oxycodone and morphine for pain control # diabetes mellitus/peripheral neuropathy - blood sugars stable, continue home insulin and low-dose sliding scale insulin, continue diabetic diet, on Neurontin for peripheral neuropathy. # hypertension - stable, few high BP reading, continue carvedilol and lisinopril , follow BP closely # CAD - no chest pain continue aspirin and carvedilol. # GERD - continue PPI # hyperlipidemia continue Lipitor # mood continue Remeron and Lexapro DVT prophylaxis:Lovenox
[2020-05-14 21:19] LABS: Glucose, Whole Blood 95 mg/dL (60-115)
[2020-05-14] MEDS: Mirtazapine 15 MG TABLET 45 MG PO (21:23)
[2020-05-14] MEDS: HYDROmorphone HCl 2 MG TABLET 1 MG PO (21:29)
[2020-05-15] VITALS (10 sets, daily range): BP systolic 142–173; BP diastolic 61–78; PULSE 68–75; RESP 14–18; TEMP 36.3–37.4; O2SAT 93–98
[2020-05-15] MEDS: oxyCODONE HCl Immed Release 5 MG TABLET PO ×2 (00:03→08:13)
[2020-05-15] MEDS: 0.9 % Sodium Chloride 1,000 ML 100 ML IVCONT (03:52)
[2020-05-15] MEDS: Piperacillin Sodium/Tazobactam 3.375 GM in 0.9 % Sodium Chloride 50 ML IV ×4 (05:37→23:37)
[2020-05-15] MEDS: Omeprazole 20 MG CAPSULE.DR PO (06:21)
[2020-05-15] MEDS: Enoxaparin Sodium 40 MG/0.4 ML SYRINGE SUBCUT (06:21)
[2020-05-15 08:10] LABS: Glucose, Whole Blood 101 mg/dL (60-115)
[2020-05-15] MEDS: Multivitamin TABLET 1 TAB PO (09:17)
[2020-05-15] MEDS: Gabapentin 400 MG CAPSULE 800 MG PO ×3 (09:17→21:01)
[2020-05-15] MEDS: Atorvastatin Calcium 80 MG TABLET PO (09:17)
[2020-05-15] MEDS: Aspirin Enteric Coated 81 MG TABLET.DR PO (09:17)
[2020-05-15] MEDS: Escitalopram Oxalate 20 MG TABLET PO (09:17)
[2020-05-15] MEDS: carvediloL 25 MG TABLET PO ×2 (09:17→21:00)
[2020-05-15] MEDS: lisinopriL 40 MG TABLET PO (09:18)
[2020-05-15] MEDS: Insulin Glargine,Hum.rec.anlog 100 UNIT/ML 10 ML VIAL 7 UNIT SUBCUT (09:19)
--- NOTE | 2020-05-15 11:34 | HO.VASCPN ---
Subjective Subjective Date of Service: 05/15/20 Patient reports: no new complaints and feels better Interval history: 59-year-old female with history of peripheral vascular disease has undergone diagnostic angiogram. It demonstrated left SFA occlusion. She has undergone diagnostic angiogram. She is in need to for of fem-pop bypass. She now presents for follow-up evaluation. Of note spanish interpreter/translator was present during this discussion. Physical Exam Vital Signs: Vital Signs: Last Vital Signs Temp 99.3 F 05/15/20 11:16 Pulse 75 05/15/20 11:16 Resp 18 05/15/20 11:16 BP 150/67 H 05/15/20 11:16 Pulse Ox 93 05/15/20 11:16 Body Mass Index 27.1 Const: General: cooperative, healthy appearing and no acute distress Orientation/consciousness: oriented to person, oriented to place and oriented to time HENMT: Head: Yes normal to inspection Neck: Carotids: no bruits Chest: Chest palpation & inspection: normal inspection of the chest Resp: Effort & Inspection: normal respiratory effort and able to speak in complete sentences Auscultation: clear to auscultation bilaterally Cardio: Rate: regular rate Heart sounds: S1 normal heart sound present and S2 normal heart sound present GI: Inspection: Yes normal to inspection Skin: General skin exam: no rashes or lesions noted Wounds: wounds noted (Left foot) Neuro: General: oriented to person, oriented to place, oriented to time and CN's II-XI intact bilaterally Extrem: General: Yes normal to inspection, Yes full ROM and Yes no clubbing, cyanosis or edema Psych: Appearance: grossly normal and well kempt Speech and movement: Normal speech and movement present Affect: normal affect Progress Note: A&P Assessment and plan (1) PAD (peripheral artery disease): Status: Acute Assessment and Plan: In short patient has left SFA occlusion. She has undergone cardiac risk stratification. Echo demonstrates ejection fraction of 60-65%. Case was discussed with Cardiology. We will schedule her on Monday for left femoral to popliteal bypass. Risks benefits complications were discussed in detail with the patient with an spanish interpreter/translator present. She demonstrated a clear understanding. Thank you for allowing us to assist in her care. Fall Risk Details Current Medications: Current Medications Generic Name Dose Route Start Last Admin Trade Name Freq PRN Reason Stop Dose Admin Acetaminophen 650 mg 05/09/20 05:24 Acetaminophen 325 Mg Tablet PO Q6H PRN Pain, Mild (Pain Scale 1-3) Acetaminophen 650 mg 05/13/20 11:26 Acetaminophen 325 Mg Tablet PO Q6H PRN Pain, Mild (Pain Scale 1-3) Aspirin 81 mg 05/09/20 09:00 05/15/20 09:17 Aspirin Enteric Coated 81 Mg Tablet. PO 81 mg DAILY [facility] Administration Atorvastatin Calcium 80 mg 05/09/20 09:00 05/15/20 09:17 Atorvastatin Calcium 80 Mg Tablet PO 80 mg DAILY [facility] Administration Carvedilol 25 mg 05/09/20 09:00 05/15/20 09:17 Carvedilol 25 Mg Tablet PO 25 mg BID [facility] Administration Protocol Docusate Sodium 100 mg 05/09/20 05:24 Docusate Sodium 100 Mg Capsule PO DAILY PRN Constipation Enoxaparin Sodium 40 mg 05/09/20 06:00 05/15/20 06:21 Enoxaparin Sodium 40 Mg/0.4 Ml Syringe SUBCUT 40 mg Q24H [facility] Administration Escitalopram Oxalate 20 mg 05/09/20 09:00 05/15/20 09:17 Escitalopram Oxalate 20 Mg Tablet PO 20 mg DAILY [facility] Administration Gabapentin 800 mg 05/09/20 09:00 05/15/20 09:17 Gabapentin 400 Mg Capsule PO 800 mg TID [facility] Administration Piperacillin Sod/Tazobactam 50 mls @ 100 mls/hr 05/09/20 05:24 05/15/20 06:15 Sod 3.375 gm/ Sodium Chloride IV Infused Q6H [facility] Infusion Vancomycin HCl 1,000 mg/ 270 mls @ 270 mls/hr 05/10/20 12:00 05/15/20 00:56 Sodium Chloride IV Infused Q12H [facility] Infusion Insulin Glargine 7 unit 05/09/20 09:00 05/15/20 09:19 Insulin Glargine,Hum.Rec.Anlog 100 Unit/Ml 10 Ml Vial SUBCUT 7 unit DAILY [facility] Administration Insulin Human Lispro 0 unit 05/09/20 07:30 05/15/20 08:13 Insulin Lispro 100 Unit/Ml 3 Ml Vial SUBCUT Not Given QIDACHS [facility] Protocol Lisinopril 40 mg 05/09/20 09:00 05/15/20 09:18 Lisinopril 40 Mg Tablet PO 40 mg DAILY [facility] Administration Protocol Mirtazapine 45 mg 05/09/20 21:00 05/14/20 21:23 Mirtazapine 15 Mg Tablet PO 45 mg BEDTIME [facility] Administration Multivitamins/Vitamin C 1 tab 05/09/20 09:00 05/15/20 09:17 Multivitamin Tablet PO 1 tab DAILY [facility] Administration Omeprazole 20 mg 05/09/20 06:30 05/15/20 06:21 Omeprazole 20 Mg Capsule.Dr PO 20 mg DAILY@0630 [facility] Administration Ondansetron HCl 4 mg 05/09/20 05:24 Ondansetron Hcl 4 Mg/2 Ml Vial IVPUSH Q8H PRN Nausea and Vomiting Oxycodone HCl 7.5 mg 05/15/20 08:55 Oxycodone Hcl Immed Release 5 Mg Tablet PO Q4H PRN Pain, Moderate (Pain Scale 4-6 Pharmacy Consult 1 each 05/08/20 22:17 Consult Rx Perform Med Rec MISCELLANE ONCE PRN Consult order Pharmacy Consult 1 each 05/09/20 05:24 Consult Rx Vancomycin Dosing MISCELLANE DAILY PRN Consult order Sodium Chloride 3 ml 05/09/20 08:00 05/15/20 08:13 0.9 % Sodium Chloride Flush 3 Ml Syringe IVFLUSH Not Given QSHIFT [facility] Time Spent With Patient Time: Total time spent is greater than 50% in coordination of care (as documented) at patient's floor/unit and/or counseling patient: Time with patient: 15 - 24 minutes
--- NOTE | 2020-05-15 11:39 | P.PNIM_ITS ---
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 General patient denies fever, chills CVS no chest pain, no palpitation GI no nausea no vomiting no diarrhea Respiratory no cough, no shortness of breath Physical Exam Vital Signs: Vital Signs: Last Vital Signs Temp 99.3 F 05/15/20 11:16 Pulse 75 05/15/20 11:16 Resp 18 05/15/20 11:16 BP 150/67 H 05/15/20 11:16 Pulse Ox 93 05/15/20 11:16 Body Mass Index 27.1 General mild distress due to left foot pain. Neck supple no JVD. CVS regular rate rhythm, Respiratory lungs clear to auscultation, no respiratory distress, no wheeze, no rhonchi. Gastrointestinal abdomen soft, nontender, bowel sounds audible, no guarding , no rigidity. Extremities right lower extremity with no swelling, left lower extremity mild swelling dressing intact to left foot, dry dressing no drainage Neuro nonfocal ,speech clear. Skin no rash Objective Data Current Medications Generic Name Dose Route Start Last Admin Trade Name Freq PRN Reason Stop Dose Admin Acetaminophen 650 mg 05/09/20 05:24 Acetaminophen 325 Mg Tablet PO Q6H PRN Pain, Mild (Pain Scale 1-3) Acetaminophen 650 mg 05/13/20 11:26 Acetaminophen 325 Mg Tablet PO Q6H PRN Pain, Mild (Pain Scale 1-3) Aspirin 81 mg 05/09/20 09:00 05/15/20 09:17 Aspirin Enteric Coated 81 Mg Tablet.Dr PO 81 mg DAILY [facility] Administration Atorvastatin Calcium 80 mg 05/09/20 09:00 05/15/20 09:17 Atorvastatin Calcium 80 Mg Tablet PO 80 mg DAILY [facility] Administration Carvedilol 25 mg 05/09/20 09:00 05/15/20 09:17 Carvedilol 25 Mg Tablet PO 25 mg BID [facility] Administration Protocol Docusate Sodium 100 mg 05/09/20 05:24 Docusate Sodium 100 Mg Capsule PO DAILY PRN Constipation Enoxaparin Sodium 40 mg 05/09/20 06:00 05/15/20 06:21 Enoxaparin Sodium 40 Mg/0.4 Ml Syringe SUBCUT 40 mg Q24H [facility] Administration Escitalopram Oxalate 20 mg 05/09/20 09:00 05/15/20 09:17 Escitalopram Oxalate 20 Mg Tablet PO 20 mg DAILY [facility] Administration Gabapentin 800 mg 05/09/20 09:00 05/15/20 09:17 Gabapentin 400 Mg Capsule PO 800 mg TID [facility] Administration Piperacillin Sod/Tazobactam 50 mls @ 100 mls/hr 05/09/20 05:24 05/15/20 06:15 Sod 3.375 gm/ Sodium Chloride IV Infused Q6H [facility] Infusion Vancomycin HCl 1,000 mg/ 270 mls @ 270 mls/hr 05/10/20 12:00 05/15/20 00:56 Sodium Chloride IV Infused Q12H [facility] Infusion Insulin Glargine 7 unit 05/09/20 09:00 05/15/20 09:19 Insulin Glargine,Hum.Rec.Anlog 100 Unit/Ml 10 Ml Vial SUBCUT 7 unit DAILY [facility] Administration Insulin Human Lispro 0 unit 05/09/20 07:30 05/15/20 08:13 Insulin Lispro 100 Unit/Ml 3 Ml Vial SUBCUT Not Given QIDACHS [facility] Protocol Lisinopril 40 mg 05/09/20 09:00 05/15/20 09:18 Lisinopril 40 Mg Tablet PO 40 mg DAILY [facility] Administration Protocol Mirtazapine 45 mg 05/09/20 21:00 05/14/20 21:23 Mirtazapine 15 Mg Tablet PO 45 mg BEDTIME [facility] Administration Multivitamins/Vitamin C 1 tab 05/09/20 09:00 05/15/20 09:17 Multivitamin Tablet PO 1 tab DAILY [facility] Administration Omeprazole 20 mg 05/09/20 06:30 05/15/20 06:21 Omeprazole 20 Mg Capsule.Dr PO 20 mg DAILY@0630 [facility] Administration Ondansetron HCl 4 mg 05/09/20 05:24 Ondansetron Hcl 4 Mg/2 Ml Vial IVPUSH Q8H PRN Nausea and Vomiting Oxycodone HCl 7.5 mg 05/15/20 08:55 Oxycodone Hcl Immed Release 5 Mg Tablet PO Q4H PRN Pain, Moderate (Pain Scale 4-6 Pharmacy Consult 1 each 05/08/20 22:17 Consult Rx Perform Med Rec MISCELLANE ONCE PRN Consult order Pharmacy Consult 1 each 05/09/20 05:24 Consult Rx Vancomycin Dosing MISCELLANE DAILY PRN Consult order Sodium Chloride 3 ml 05/09/20 08:00 05/15/20 08:13 0.9 % Sodium Chloride Flush 3 Ml Syringe IVFLUSH Not Given QSHIFT [facility] Labs CBC & Chem 7: 05/10/20 04:29 05/13/20 06:03 Microbiology Microbiology Results: Microbiology 05/08/20 22:52 Blood - Venous Blood Culture - Final No growth after 5 days. 05/08/20 22:52 Blood - Venous Blood Culture - Final No growth after 5 days. 05/09/20 05:53 Urine clean catch - Clean Catch Midstream Urine Culture - Final Assessment and Plan (1) Osteomyelitis: Status: Acute (2) Diabetic foot ulcer: Status: Acute (3) Infection of toe: Status: Acute (4) PAD (peripheral artery disease): Status: Acute (5) Uncontrolled diabetes mellitus: Status: Acute (6) HTN (hypertension): Status: Acute Assessment and Plan: 59-year-old female who presents to the hospital with complaints of nonhealing ulcers of her left foot. . Sent by wound clinic. # Nonhealing diabetic left foot ulcer, MRI foot suspicious for 5th toe osteomyelitis Persistent left foot pain, otherwise no fever, no chills, no leukocytosis, continue IV vancomycin and Zosyn,day 7, patient seen by Dr. Lowery no debridement required cont. dry sterile dressing Patient seen by Dr. Castellanos she recommend 6 weeks of IV ertapenem upon discharge, blood cultures x2 negative Patient underwent angiogram 05/13 and will require left-sided fem-pop bypass, on 05/[address] Daniel from Cardiology he do not recommend stress study or any other cardiac workup prior to surgery he feels patient is intermediate risk, he recommend to continue aspirin and Coreg Continue oxycodone and morphine for pain control, will increase dose of oxycodone due to suboptimal pain control. # diabetes mellitus/peripheral neuropathy - blood sugars stable, continue home insulin and low-dose sliding scale insulin, continue diabetic diet, on Neurontin for peripheral neuropathy. # hypertension - stable, few high BP reading likely due to pain, continue carvedilol and lisinopril , follow BP closely # CAD - no chest pain continue aspirin and carvedilol. # GERD - continue PPI # hyperlipidemia continue Lipitor # mood continue Remeron and Lexapro DVT prophylaxis:Lovenox
[2020-05-15 11:48] LABS: Glucose, Whole Blood 205 mg/dL (60-115)
[2020-05-15 12:12] LABS: Vancomycin Trough 10.7 mcg/mL (10.0-20.0)
[2020-05-15] MEDS: Insulin Lispro 100 UNIT/ML 3 ML VIAL SUBCUT (12:26)
[2020-05-15] MEDS: vancomycin HCL 1,000 MG in 0.9 % Sodium Chloride 250 ML 270 MG IV (12:49)
[2020-05-15] MEDS: 0.9 % Sodium Chloride Flush 3 ML SYRINGE IVFLUSH ×2 (15:41→21:02)
[2020-05-15 16:46] LABS: Glucose, Whole Blood 123 mg/dL (60-115)
[2020-05-15] MEDS: oxyCODONE HCl Immed Release 5 MG TABLET 7.5 MG PO (19:17)
[2020-05-15] MEDS: Mirtazapine 15 MG TABLET 45 MG PO (21:00)
[2020-05-15 21:05] LABS: Glucose, Whole Blood 139 mg/dL (60-115)
[2020-05-16] VITALS (9 sets, daily range): BP systolic 97–200; BP diastolic 44–97; PULSE 65–75; RESP 13–18; TEMP 36.4–37.1; O2SAT 93–100
[2020-05-16] MEDS: vancomycin HCL 1,000 MG in 0.9 % Sodium Chloride 250 ML 270 MG IV ×2 (00:12→12:44)
[2020-05-16] MEDS: oxyCODONE HCl Immed Release 5 MG TABLET 7.5 MG PO ×3 (05:05→21:06)
[2020-05-16] MEDS: Omeprazole 20 MG CAPSULE.DR PO (05:36)
[2020-05-16] MEDS: Piperacillin Sodium/Tazobactam 3.375 GM in 0.9 % Sodium Chloride 50 ML IV ×4 (05:36→23:51)
[2020-05-16] MEDS: Enoxaparin Sodium 40 MG/0.4 ML SYRINGE SUBCUT (05:36)
[2020-05-16] MEDS: lisinopriL 40 MG TABLET PO (05:46)
--- NOTE | 2020-05-16 06:09 | PC.NURSE ---
0546 pt's b/p 200/97.pt medicated early with her 9am dose of lisinopril.
[2020-05-16 07:46] LABS: Glucose, Whole Blood 109 mg/dL (60-115)
[2020-05-16] MEDS: 0.9 % Sodium Chloride Flush 3 ML SYRINGE IVFLUSH ×3 (09:10→21:06)
[2020-05-16] MEDS: Multivitamin TABLET 1 TAB PO (09:10)
[2020-05-16] MEDS: Acetaminophen 325 MG TABLET 650 MG PO (09:11)
[2020-05-16] MEDS: carvediloL 25 MG TABLET PO ×2 (09:12→21:05)
[2020-05-16] MEDS: Escitalopram Oxalate 20 MG TABLET PO (09:12)
[2020-05-16] MEDS: Gabapentin 400 MG CAPSULE 800 MG PO ×3 (09:12→21:06)
[2020-05-16] MEDS: Atorvastatin Calcium 80 MG TABLET PO (09:12)
[2020-05-16] MEDS: Aspirin Enteric Coated 81 MG TABLET.DR PO (09:13)
[2020-05-16] MEDS: Insulin Glargine,Hum.rec.anlog 100 UNIT/ML 10 ML VIAL 7 UNIT SUBCUT (09:13)
[2020-05-16 10:25] LABS: Anion Gap 9 (12-20); Blood Urea Nitrogen 6 mg/dL (9-16); Calcium 7.6 mg/dL (8.4-10.2); Carbon Dioxide 30 mmol/L (22-29); Chloride 103 mmol/L (96-108); Creatinine Clr Calc Pharmacy 84.7; Estimated Glomerular Filt Rate > 60; Glucose Random 171 mg/dL (60-115); Potassium 3.7 mmol/L (3.3-5.1); Sodium 138 mmol/L (135-145)
--- NOTE | 2020-05-16 11:04 | HO.PM.IMPN ---
Subjective Subjective Date of Service: 05/16/20 Interval History: Patient offers no new complaints continue to have left leg discomfort, elevated blood pressure over night, otherwise no other acute issues overnight. ROS General patient denies fever, chills CVS no chest pain, no palpitation GI no nausea, no vomiting, no diarrhea Respiratory no cough, no shortness of breath Physical Exam Vital Signs: Vital Signs: Last Vital Signs Temp 98.1 F 05/16/20 09:00 Pulse 68 05/16/20 09:00 Resp 18 05/16/20 09:00 BP 177/70 H 05/16/20 09:00 Pulse Ox 96 05/16/20 09:00 Body Mass Index 27.1 General no acute distress, resting comfortably Neck supple no JVD. CVS regular rate rhythm, Respiratory lungs clear to auscultation, no respiratory distress, no wheeze, no rhonchi. Gastrointestinal abdomen soft, nontender, bowel sounds audible, no guarding , no rigidity. Extremities right lower extremity with no swelling, left lower extremity mild swelling dressing to left foot dry no drainage. Neuro nonfocal ,speech clear. Skin no rash Objective Data Current Medications Generic Name Dose Route Start Last Admin Trade Name Freq PRN Reason Stop Dose Admin Acetaminophen 650 mg 05/09/20 05:24 05/16/20 09:11 Acetaminophen 325 Mg Tablet PO 650 mg Q6H PRN Administration Pain, Mild (Pain Scale 1-3) Acetaminophen 650 mg 05/13/20 11:26 Acetaminophen 325 Mg Tablet PO Q6H PRN Pain, Mild (Pain Scale 1-3) Aspirin 81 mg 05/09/20 09:00 05/16/20 09:13 Aspirin Enteric Coated 81 Mg Tablet. PO 81 mg DAILY [facility] Administration Atorvastatin Calcium 80 mg 05/09/20 09:00 05/16/20 09:12 Atorvastatin Calcium 80 Mg Tablet PO 80 mg DAILY [facility] Administration Carvedilol 25 mg 05/09/20 09:00 05/16/20 09:12 Carvedilol 25 Mg Tablet PO 25 mg BID [facility] Administration Protocol Docusate Sodium 100 mg 05/09/20 05:24 Docusate Sodium 100 Mg Capsule PO DAILY PRN Constipation Enoxaparin Sodium 40 mg 05/09/20 06:00 05/16/20 05:36 Enoxaparin Sodium 40 Mg/0.4 Ml Syringe SUBCUT 40 mg Q24H [facility] Administration Escitalopram Oxalate 20 mg 05/09/20 09:00 05/16/20 09:12 Escitalopram Oxalate 20 Mg Tablet PO 20 mg DAILY [facility] Administration Gabapentin 800 mg 05/09/20 09:00 05/16/20 09:12 Gabapentin 400 Mg Capsule PO 800 mg TID [facility] Administration Piperacillin Sod/Tazobactam 50 mls @ 100 mls/hr 05/09/20 05:24 05/16/20 06:14 Sod 3.375 gm/ Sodium Chloride IV Infused Q6H [facility] Infusion Vancomycin HCl 1,000 mg/ 270 mls @ 270 mls/hr 05/10/20 12:00 05/16/20 01:19 Sodium Chloride IV Infused Q12H [facility] Infusion Insulin Glargine 7 unit 05/09/20 09:00 05/16/20 09:13 Insulin Glargine,Hum.Rec.Anlog 100 Unit/Ml 10 Ml Vial SUBCUT 7 unit DAILY [facility] Administration Insulin Human Lispro 0 unit 05/09/20 07:30 05/16/20 07:42 Insulin Lispro 100 Unit/Ml 3 Ml Vial SUBCUT Not Given QIDACHS [facility] Protocol Lisinopril 40 mg 05/09/20 09:00 05/16/20 05:46 Lisinopril 40 Mg Tablet PO 40 mg DAILY [facility] Administration Protocol Mirtazapine 45 mg 05/09/20 21:00 05/15/20 21:00 Mirtazapine 15 Mg Tablet PO 45 mg BEDTIME [facility] Administration Multivitamins/Vitamin C 1 tab 05/09/20 09:00 05/16/20 09:10 Multivitamin Tablet PO 1 tab DAILY [facility] Administration Omeprazole 20 mg 05/09/20 06:30 05/16/20 05:36 Omeprazole 20 Mg Capsule.Dr PO 20 mg DAILY@0630 [facility] Administration Ondansetron HCl 4 mg 05/09/20 05:24 Ondansetron Hcl 4 Mg/2 Ml Vial IVPUSH Q8H PRN Nausea and Vomiting Oxycodone HCl 7.5 mg 05/15/20 08:55 05/16/20 09:11 Oxycodone Hcl Immed Release 5 Mg Tablet PO 7.5 mg Q4H PRN Administration Pain, Moderate (Pain Scale 4-6 Pharmacy Consult 1 each 05/08/20 22:17 Consult Rx Perform Med Rec MISCELLANE ONCE PRN Consult order Sodium Chloride 3 ml 05/09/20 08:00 05/16/20 09:10 0.9 % Sodium Chloride Flush 3 Ml Syringe IVFLUSH 3 ml QSHIFT [facility] Administration Labs CBC & Chem 7: 05/10/20 04:29 05/16/20 09:19 Microbiology Microbiology Results: Microbiology 05/08/20 22:52 Blood - Venous Blood Culture - Final No growth after 5 days. 05/08/20 22:52 Blood - Venous Blood Culture - Final No growth after 5 days. 05/09/20 05:53 Urine clean catch - Clean Catch Midstream Urine Culture - Final Assessment and Plan (1) Infection of toe: Status: Acute (2) Osteomyelitis: Status: Acute (3) PAD (peripheral artery disease): Status: Acute (4) Diabetic foot ulcer: Status: Acute (5) Uncontrolled diabetes mellitus: Status: Acute (6) HTN (hypertension): Status: Acute Assessment and Plan: 59-year-old female who presents to the hospital with complaints of nonhealing ulcers of her left foot. . Sent by wound clinic. # Nonhealing diabetic left foot ulcer, MRI foot suspicious for 5th toe osteomyelitis Persistent left foot pain, otherwise no fever, no chills, no leukocytosis, continue IV vancomycin and Zosyn,day 8, patient seen by Dr. Lowery no debridement required cont. dry sterile dressing Case discussed with Dr. Castellanos she recommend 6 weeks of IV ertapenem upon discharge, blood cultures x2 negative Patient underwent angiogram 05/13 and will require left-sided fem-pop bypass, on 05/18, patient seen by Dr. Daniel from Cardiology he do not recommend stress study or any other cardiac workup prior to surgery he feels patient is intermediate risk, he recommend to continue aspirin and Coreg Continue oxycodone 7.5 mg Q4h prn and morphine for pain control # diabetes mellitus/peripheral neuropathy - blood sugars stable, continue home insulin and low-dose sliding scale insulin, continue diabetic diet, on Neurontin for peripheral neuropathy. # hypertension - blood pressure is significantly elevated, despite good pain control therefore will add Norvasc 5 mg,continue carvedilol and lisinopril , follow BP closely # CAD - no chest pain continue aspirin and carvedilol. # GERD - continue PPI # hyperlipidemia continue Lipitor # mood continue Remeron and Lexapro DVT prophylaxis:Lovenox
[2020-05-16 11:31] LABS: Glucose, Whole Blood 213 mg/dL (60-115)
[2020-05-16] MEDS: amLODIPine Besylate 5 MG TABLET PO (11:58)
[2020-05-16] MEDS: Insulin Lispro 100 UNIT/ML 3 ML VIAL SUBCUT ×3 (12:00→21:04)
[2020-05-16 16:43] LABS: Glucose, Whole Blood 211 mg/dL (60-115)
[2020-05-16 21:02] LABS: Glucose, Whole Blood 202 mg/dL (60-115)
[2020-05-16] MEDS: Mirtazapine 15 MG TABLET 45 MG PO (21:05)
[2020-05-17] VITALS (7 sets, daily range): BP systolic 136–177; BP diastolic 58–78; PULSE 64–76; RESP 16–19; TEMP 36.3–37; O2SAT 93–97
[2020-05-17 01:04] LABS: Vancomycin Trough 12.5 mcg/mL (10.0-20.0)
[2020-05-17] MEDS: vancomycin HCL 1,000 MG in 0.9 % Sodium Chloride 250 ML 270 MG IV (01:12)
[2020-05-17] MEDS: oxyCODONE HCl Immed Release 5 MG TABLET 7.5 MG PO ×4 (03:11→20:32)
[2020-05-17] MEDS: Piperacillin Sodium/Tazobactam 3.375 GM in 0.9 % Sodium Chloride 50 ML IV ×3 (05:18→17:28)
[2020-05-17] MEDS: Enoxaparin Sodium 40 MG/0.4 ML SYRINGE SUBCUT (05:52)
[2020-05-17] MEDS: Omeprazole 20 MG CAPSULE.DR PO (05:53)
[2020-05-17 07:51] LABS: Glucose, Whole Blood 118 mg/dL (60-115)
[2020-05-17] MEDS: Insulin Glargine,Hum.rec.anlog 100 UNIT/ML 10 ML VIAL 7 UNIT SUBCUT (10:13)
[2020-05-17] MEDS: Gabapentin 400 MG CAPSULE 800 MG PO ×3 (10:13→20:24)
[2020-05-17] MEDS: carvediloL 25 MG TABLET PO ×2 (10:14→20:25)
[2020-05-17] MEDS: lisinopriL 40 MG TABLET PO (10:14)
[2020-05-17] MEDS: Aspirin Enteric Coated 81 MG TABLET.DR PO (10:14)
[2020-05-17] MEDS: amLODIPine Besylate 5 MG TABLET PO (10:14)
[2020-05-17] MEDS: Atorvastatin Calcium 80 MG TABLET PO (10:14)
[2020-05-17] MEDS: Multivitamin TABLET 1 TAB PO (10:14)
[2020-05-17] MEDS: Escitalopram Oxalate 20 MG TABLET PO (10:14)
[2020-05-17] MEDS: 0.9 % Sodium Chloride Flush 3 ML SYRINGE IVFLUSH ×2 (10:15→15:04)
--- NOTE | 2020-05-17 10:49 | HO.PM.IMPN ---
Subjective Subjective Date of Service: 05/17/20 Interval History: No acute issues overnight continue to complain of left leg pain, BP remains elevated this a.m. but yesterday afternoon drop down to 97/44 patient feels nervous about tomorrow's procedure, likely anxiety and pain contributing to hypertension. ROS General patient denies fever, chills CVS no chest pain, no palpitation GI no nausea, no vomiting, no diarrhea Respiratory no cough, no shortness of breath Physical Exam Vital Signs: Vital Signs: Last Vital Signs Temp 98.1 F 05/17/20 08:00 Pulse 70 05/17/20 08:00 Resp 19 05/17/20 08:00 BP 177/78 H 05/17/20 08:00 Pulse Ox 97 05/17/20 08:00 Body Mass Index 27.1 General no acute distress, resting comfortably Neck supple no JVD. CVS regular rate rhythm, Respiratory lungs clear to auscultation, no respiratory distress, no wheeze, no rhonchi. Gastrointestinal abdomen soft, nontender, bowel sounds audible, no guarding , no rigidity. Extremities right lower extremity with no swelling, left lower extremity persistent mild swelling dressing to left foot dry no drainage. Neuro nonfocal ,speech clear. Skin no rash Objective Data Current Medications Generic Name Dose Route Start Last Admin Trade Name Freq PRN Reason Stop Dose Admin Acetaminophen 650 mg 05/09/20 05:24 05/16/20 09:11 Acetaminophen 325 Mg Tablet PO 650 mg Q6H PRN Administration Pain, Mild (Pain Scale 1-3) Acetaminophen 650 mg 05/13/20 11:26 Acetaminophen 325 Mg Tablet PO Q6H PRN Pain, Mild (Pain Scale 1-3) Amlodipine Besylate 5 mg 05/16/20 11:15 05/17/20 10:14 Amlodipine Besylate 5 Mg Tablet PO 5 mg DAILY [facility] Administration Protocol Aspirin 81 mg 05/09/20 09:00 05/17/20 10:14 Aspirin Enteric Coated 81 Mg Tablet. PO 81 mg DAILY [facility] Administration Atorvastatin Calcium 80 mg 05/09/20 09:00 05/17/20 10:14 Atorvastatin Calcium 80 Mg Tablet PO 80 mg DAILY [facility] Administration Carvedilol 25 mg 05/09/20 09:00 05/17/20 10:14 Carvedilol 25 Mg Tablet PO 25 mg BID [facility] Administration Protocol Docusate Sodium 100 mg 05/09/20 05:24 Docusate Sodium 100 Mg Capsule PO DAILY PRN Constipation Enoxaparin Sodium 40 mg 05/09/20 06:00 05/17/20 05:52 Enoxaparin Sodium 40 Mg/0.4 Ml Syringe SUBCUT 40 mg Q24H [facility] Administration Escitalopram Oxalate 20 mg 05/09/20 09:00 05/17/20 10:14 Escitalopram Oxalate 20 Mg Tablet PO 20 mg DAILY [facility] Administration Gabapentin 800 mg 05/09/20 09:00 05/17/20 10:13 Gabapentin 400 Mg Capsule PO 800 mg TID [facility] Administration Piperacillin Sod/Tazobactam 50 mls @ 100 mls/hr 05/09/20 05:24 05/17/20 05:55 Sod 3.375 gm/ Sodium Chloride IV Infused Q6H [facility] Infusion Vancomycin HCl 1,000 mg/ 270 mls @ 270 mls/hr 05/10/20 12:00 05/17/20 02:34 Sodium Chloride IV Infused Q12H [facility] Infusion Insulin Glargine 7 unit 05/09/20 09:00 05/17/20 10:13 Insulin Glargine,Hum.Rec.Anlog 100 Unit/Ml 10 Ml Vial SUBCUT 7 unit DAILY [facility] Administration Insulin Human Lispro 0 unit 05/09/20 07:30 05/17/20 07:49 Insulin Lispro 100 Unit/Ml 3 Ml Vial SUBCUT Not Given QIDACHS [facility] Protocol Lisinopril 40 mg 05/09/20 09:00 05/17/20 10:14 Lisinopril 40 Mg Tablet PO 40 mg DAILY [facility] Administration Protocol Mirtazapine 45 mg 05/09/20 21:00 05/16/20 21:05 Mirtazapine 15 Mg Tablet PO 45 mg BEDTIME [facility] Administration Multivitamins/Vitamin C 1 tab 05/09/20 09:00 05/17/20 10:14 Multivitamin Tablet PO 1 tab DAILY [facility] Administration Omeprazole 20 mg 05/09/20 06:30 05/17/20 05:53 Omeprazole 20 Mg Capsule.Dr PO 20 mg DAILY@0630 [facility] Administration Ondansetron HCl 4 mg 05/09/20 05:24 Ondansetron Hcl 4 Mg/2 Ml Vial IVPUSH Q8H PRN Nausea and Vomiting Oxycodone HCl 7.5 mg 05/15/20 08:55 05/17/20 10:14 Oxycodone Hcl Immed Release 5 Mg Tablet PO 7.5 mg Q4H PRN Administration Pain, Moderate (Pain Scale 4-6 Pharmacy Consult 1 each 05/08/20 22:17 Consult Rx Perform Med Rec MISCELLANE ONCE PRN Consult order Sodium Chloride 3 ml 05/09/20 08:00 05/17/20 10:15 0.9 % Sodium Chloride Flush 3 Ml Syringe IVFLUSH 3 ml QSHIFT [facility] Administration Labs CBC & Chem 7: 05/10/20 04:29 05/16/20 09:19 Microbiology Microbiology Results: Microbiology 05/08/20 22:52 Blood - Venous Blood Culture - Final No growth after 5 days. 05/08/20 22:52 Blood - Venous Blood Culture - Final No growth after 5 days. 05/09/20 05:53 Urine clean catch - Clean Catch Midstream Urine Culture - Final Assessment and Plan (1) PAD (peripheral artery disease): Status: Acute (2) Infection of toe: Status: Acute (3) Diabetic foot ulcer: Status: Acute (4) Uncontrolled diabetes mellitus: Status: Acute (5) HTN (hypertension): Status: Acute Assessment and Plan: 59-year-old female who presents to the hospital with complaints of nonhealing ulcers of her left foot. . Sent by wound clinic. 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 Lowery no debridement required cont. dry sterile dressing. Case discussed with Dr. Castellanos she recommend 6 weeks of IV ertapenem upon discharge, Patient underwent angiogram 05/13 and will require left-sided fem-pop bypass, on 05/18, patient seen by Dr. Daniel from Cardiology he do not recommend stress study or any other cardiac workup prior to surgery he feels patient is intermediate risk, he recommend to continue aspirin and Coreg Continue oxycodone 7.5 mg Q4h prn and morphine for pain control # diabetes mellitus/peripheral neuropathy - blood sugars stable, continue home insulin and low-dose sliding scale insulin, continue diabetic diet, on Neurontin for peripheral neuropathy. # hypertension - blood pressure fluctuating, patient started on Norvasc 5 mg yesterday and continued on Coreg and lisinopril, continue same treatment today and follow clinical course likely anxiety and pain contributing to high blood, follow BP closely # CAD - no chest pain continue aspirin and carvedilol. # GERD - continue PPI # hyperlipidemia continue Lipitor # mood continue Remeron and Lexapro DVT prophylaxis:Lovenox
[2020-05-17 11:40] LABS: Glucose, Whole Blood 167 mg/dL (60-115)
[2020-05-17] MEDS: Insulin Lispro 100 UNIT/ML 3 ML VIAL SUBCUT ×2 (11:44→20:27)
[2020-05-17 16:15] LABS: Glucose, Whole Blood 131 mg/dL (60-115)
[2020-05-17 20:22] LABS: Glucose, Whole Blood 219 mg/dL (60-115)
[2020-05-17] MEDS: Mirtazapine 15 MG TABLET 45 MG PO (20:24)
[2020-05-18] VITALS (30 sets, daily range): BP systolic 102–187; BP diastolic 39–77; PULSE 62–74; RESP 10–21; TEMP 36.1–36.7; O2SAT 92–100; BMI 25.9
[2020-05-18] MEDS: Piperacillin Sodium/Tazobactam 3.375 GM in 0.9 % Sodium Chloride 50 ML IV ×3 (00:17→13:30)
[2020-05-18] MEDS: 0.9 % Sodium Chloride Flush 3 ML SYRINGE IVFLUSH ×2 (00:19→07:38)
[2020-05-18] MEDS: Omeprazole 20 MG CAPSULE.DR PO (05:35)
[2020-05-18] MEDS: Enoxaparin Sodium 40 MG/0.4 ML SYRINGE SUBCUT (05:35)
[2020-05-18] MEDS: Escitalopram Oxalate 20 MG TABLET PO (07:37)
[2020-05-18] MEDS: Atorvastatin Calcium 80 MG TABLET PO (07:37)
[2020-05-18] MEDS: lisinopriL 40 MG TABLET PO (07:37)
[2020-05-18] MEDS: carvediloL 25 MG TABLET PO (07:37)
[2020-05-18] MEDS: amLODIPine Besylate 5 MG TABLET PO (07:37)
[2020-05-18] MEDS: Gabapentin 400 MG CAPSULE 800 MG PO ×3 (07:37→21:29)
--- NOTE | 2020-05-18 07:43 | MHC.SHP ---
Pre-Procedural Eval Section A The patient is an INPATIENT: Yes Changes since office visit: Yes Patient answered all questions The History & Physical has been completed within 30 days and I have reviewed it.: Yes Section B Chief Complaint: DIABETIC FOOT ULCER Allergies: Allergies Allergy/AdvReac Type Severity Reaction Status Date / Time latex [LATEX] Allergy Unknown RASH Verified 05/08/20 22:16 naproxen [From NAPROSYN] Allergy Unknown TACHYCARDIA Verified 05/08/20 22:16 Plan I have reviewed the history and physical and performed a pertinent physical examination on my patient. No changes have occurred unless specified.
[2020-05-18 07:51] LABS: Glucose, Whole Blood 97 mg/dL (60-115)
--- NOTE | 2020-05-18 07:55 | HO.ANESPROP2 ---
[facility] Active Problems Active Problems: All Active Problems (Updated 05/14/20 @ 16:48 by Talon Luna MD) Preoperative cardiovascular examination (Acute) Osteomyelitis (Acute) PAD (peripheral artery disease) (Acute) Diabetic foot ulcer (Acute) Infection of toe (Acute) Uncontrolled diabetes mellitus (Acute) Abdominal bloating (Acute) LUQ abdominal pain (Acute) Weight loss, abnormal (Acute) Tachycardia (Acute) NIDDY (non-insulin dependent diabetes mellitus in young) (Acute) Nausea and vomiting (Acute) H. pylori infection (Acute) Chest pressure (Acute) HTN (hypertension) (Acute) Past Medical History Medical History Arthritis Asthma CAD (coronary artery disease) Cyst (solitary) of breast Diabetes H. pylori infection HTN (hypertension) Kidney calculi Family History Family History Mother Diabetes Liver cancer Surgical History Surgical History History of breast surgery History of cardiac cath History of esophagogastroduodenoscopy (EGD) Hx of colonoscopy Social History Social History Household Members: Spouse and Family Housing: Apartment Alcohol intake: current Alcohol intake frequency: does not drink Smoking Status: Current every day smoker Tobacco Type: Cigarette Cigarettes Per Day: 2 Second Hand Smoke Exposure: No service: No Current occupational status: unemployed and disabled Meds Allergies Allergy/AdvReac Type Severity Reaction Status Date / Time latex [LATEX] Allergy Unknown RASH Verified 05/08/20 22:16 naproxen [From NAPROSYN] Allergy Unknown TACHYCARDIA Verified 05/08/20 22:16 Active Medications: Current Medications Generic Name Dose Route Start Last Admin Trade Name Freq PRN Reason Stop Dose Admin Acetaminophen 650 mg 05/09/20 05:24 05/16/20 09:11 Acetaminophen 325 Mg Tablet PO 650 mg Q6H PRN Administration Pain, Mild (Pain Scale 1-3) Acetaminophen 650 mg 05/13/20 11:26 Acetaminophen 325 Mg Tablet PO Q6H PRN Pain, Mild (Pain Scale 1-3) Amlodipine Besylate 5 mg 05/16/20 11:15 05/18/20 07:37 Amlodipine Besylate 5 Mg Tablet PO 5 mg DAILY [facility] Administration Protocol Aspirin 81 mg 05/09/20 09:00 05/18/20 07:39 Aspirin Enteric Coated 81 Mg Tablet.Dr PO Not Given DAILY [facility] Atorvastatin Calcium 80 mg 05/09/20 09:00 05/18/20 07:37 Atorvastatin Calcium 80 Mg Tablet PO 80 mg DAILY [facility] Administration Carvedilol 25 mg 05/09/20 09:00 05/18/20 07:37 Carvedilol 25 Mg Tablet PO 25 mg BID [facility] Administration Protocol Docusate Sodium 100 mg 05/09/20 05:24 Docusate Sodium 100 Mg Capsule PO DAILY PRN Constipation Enoxaparin Sodium 40 mg 05/09/20 06:00 05/18/20 05:35 Enoxaparin Sodium 40 Mg/0.4 Ml Syringe SUBCUT 40 mg Q24H [facility] Administration Escitalopram Oxalate 20 mg 05/09/20 09:00 05/18/20 07:37 Escitalopram Oxalate 20 Mg Tablet PO 20 mg DAILY [facility] Administration Gabapentin 800 mg 05/09/20 09:00 05/18/20 07:37 Gabapentin 400 Mg Capsule PO 800 mg TID [facility] Administration Piperacillin Sod/Tazobactam 50 mls @ 100 mls/hr 05/09/20 05:24 05/18/20 06:32 Sod 3.375 gm/ Sodium Chloride IV Infused Q6H [facility] Infusion Insulin Glargine 7 unit 05/09/20 09:00 05/18/20 07:39 Insulin Glargine,Hum.Rec.Anlog 100 Unit/Ml 10 Ml Vial SUBCUT Not Given DAILY [facility] Insulin Human Lispro 0 unit 05/09/20 07:30 05/18/20 07:38 Insulin Lispro 100 Unit/Ml 3 Ml Vial SUBCUT Not Given QIDACHS [facility] Protocol Lisinopril 40 mg 05/09/20 09:00 05/18/20 07:37 Lisinopril 40 Mg Tablet PO 40 mg DAILY [facility] Administration Protocol Mirtazapine 45 mg 05/09/20 21:00 05/17/20 20:24 Mirtazapine 15 Mg Tablet PO 45 mg BEDTIME [facility] Administration Multivitamins/Vitamin C 1 tab 05/09/20 09:00 05/18/20 07:39 Multivitamin Tablet PO Not Given DAILY [facility] Omeprazole 20 mg 05/09/20 06:30 05/18/20 05:35 Omeprazole 20 Mg Capsule. PO 20 mg DAILY@0630 [facility] Administration Ondansetron HCl 4 mg 05/09/20 05:24 Ondansetron Hcl 4 Mg/2 Ml Vial IVPUSH Q8H PRN Nausea and Vomiting Oxycodone HCl 7.5 mg 05/15/20 08:55 05/17/20 20:32 Oxycodone Hcl Immed Release 5 Mg Tablet PO 7.5 mg Q4H PRN Administration Pain, Moderate (Pain Scale 4-6 Pharmacy Consult 1 each 05/08/20 22:17 Consult Rx Perform Med Rec MISCELLANE ONCE PRN Consult order Sodium Chloride 3 ml 05/09/20 08:00 05/18/20 07:38 0.9 % Sodium Chloride Flush 3 Ml Syringe IVFLUSH 3 ml QSHIFT [facility] Administration Home Medications Medication Instructions Recorded Confirmed Last Taken Type metformin 1,000 mg PO BID 12/22/19 05/09/20 05/08/20 08:00 History aspirin 81 mg tablet,delayed 81 mg PO DAILY 01/02/20 05/09/20 05/08/20 08:00 History release atorvastatin 80 mg tablet 80 mg PO DAILY 01/02/20 05/09/20 05/08/20 08:00 History carvedilol 25 mg tablet 25 mg PO BID 01/02/20 05/09/20 05/08/20 20:00 History escitalopram oxalate 20 mg tablet 20 mg PO DAILY 01/02/20 05/09/20 05/08/20 08:00 History ferrous sulfate 325 mg (65 mg 325 mg PO BID 01/02/20 05/09/20 05/08/20 20:00 History iron) tablet gabapentin 800 mg tablet 800 mg PO TID 01/02/20 05/09/20 05/08/20 20:00 History insulin degludec 100 unit/mL (3 10 unit SUBCUT DAILY 01/02/20 05/09/20 Unknown History mL) subcutaneous pen insulin lispro 100 unit/mL 2 sliding scale dose SUBCUT 01/02/20 05/09/20 Unknown History subcutaneous cartridge USEASDIRECTD lisinopril 40 mg tablet 40 mg PO DAILY 01/02/20 05/09/20 05/08/20 08:00 History mirtazapine 45 mg tablet 45 mg PO DAILY 01/02/20 05/09/20 05/08/20 08:00 History multivitamin 1 tab PO DAILY 01/02/20 05/09/20 05/08/20 08:00 History oxycodone 5 mg capsule 5 mg PO NEEDED PRN 01/02/20 05/09/20 Unknown History pioglitazone 45 mg tablet 45 mg PO DAILY 01/02/20 05/09/20 05/07/20 20:00 History pantoprazole 40 mg tablet,delayed 40 mg PO DAILY tab 03/03/20 05/09/20 05/08/20 08:00 History release Exam Exam Date and Time: May 18, 2020 075 Height,Weight and Vital Signs: Height 5 ft 2 in Weight 67.132 kg Last Vital Signs Temp 98.0 F 05/18/20 07:15 Pulse 67 05/18/20 07:15 Resp 16 05/18/20 07:15 BP 161/77 H 05/18/20 07:15 Pulse Ox 98 05/18/20 07:15 Pertinent Lab Results Pertinent Lab Results: Laboratory Tests 05/08/20 05/08/20 05/08/20 22:51 22:51 22:51 WBC 8.6 RBC 4.50 Hgb 13.3 Hct 40.4 MCV 89.8 MCH 29.6 MCHC 32.9 RDW 13.1 Plt Count 315 MPV 9.4 Immature Gran % (Auto) 0.2 Neut % (Auto) 62.9 Lymph % (Auto) 28.6 [place] % (Auto) 5.1 Eos % (Auto) 2.7 Baso % (Auto) 0.5 Lymph # (Auto) 2.5 [place] # (Auto) 0.4 Eos # (Auto) 0.2 Baso # (Auto) 0.0 Abs Immat Gran (auto) 0.02 Absolute Neuts (auto) 5.4 Absolute Nucleated RBC 0.000 Nucleated RBC % (auto) 0.0 ESR PT INR Sodium 137 Potassium 4.2 Chloride 100 Carbon Dioxide 27 Anion Gap 14 BUN 13 Creatinine 0.75 Estim Creat Clear Calc 73.4 Estimated GFR > 60 POC Glucose Random Glucose 320 H Lactic Acid 1.5 Calcium 9.0 Total Bilirubin 0.7 Direct Bilirubin 0.2 AST 8 ALT 9 Alkaline Phosphatase 84 C-Reactive Protein Total Protein 6.1 L Albumin 3.8 Lipase 32 Urine Color Urine Appearance Urine pH Ur Specific [place] Urine Protein Urine Glucose (UA) Urine Ketones Urine Blood Urine Nitrite Ur Leukocyte Esterase Urine RBC Urine WBC Ur Squamous Epith Cells Urine Bacteria Vancomycin Trough COVID-19 ([facility]) COVID-19 Clin Com Blood Type Antibody Screen 05/08/20 05/09/20 05/09/20 23:57 05:52 05:52 WBC RBC Hgb Hct MCV MCH MCHC RDW Plt Count MPV Immature Gran % (Auto) Neut % (Auto) Lymph % (Auto) [place] % (Auto) Eos % (Auto) Baso % (Auto) Lymph # (Auto) [place] # (Auto) Eos # (Auto) Baso # (Auto) Abs Immat Gran (auto) Absolute Neuts (auto) Absolute Nucleated RBC Nucleated RBC % (auto) ESR 12 PT INR Sodium Potassium Chloride Carbon Dioxide Anion Gap BUN Creatinine Estim Creat Clear Calc Estimated GFR POC Glucose Random Glucose Lactic Acid Calcium Total Bilirubin Direct Bilirubin AST ALT Alkaline Phosphatase C-Reactive Protein 1.09 H Total Protein Albumin Lipase Urine Color Urine Appearance Urine pH Ur Specific [place] Urine Protein Urine Glucose (UA) Urine Ketones Urine Blood Urine Nitrite Ur Leukocyte Esterase Urine RBC Urine WBC Ur Squamous Epith Cells Urine Bacteria Vancomycin Trough COVID-19 ([facility]) Negative COVID-19 Clin Com See Note Blood Type Antibody Screen 05/09/20 05/09/20 05/09/20 06:09 07:02 11:04 WBC RBC Hgb Hct MCV MCH MCHC RDW Plt Count MPV Immature Gran % (Auto) Neut % (Auto) Lymph % (Auto) [place] % (Auto) Eos % (Auto) Baso % (Auto) Lymph # (Auto) [place] # (Auto) Eos # (Auto) Baso # (Auto) Abs Immat Gran (auto) Absolute Neuts (auto) Absolute Nucleated RBC Nucleated RBC % (auto) ESR PT INR Sodium Potassium Chloride Carbon Dioxide Anion Gap BUN Creatinine Estim Creat Clear Calc Estimated GFR POC Glucose 189 H 211 H Random Glucose Lactic Acid Calcium Total Bilirubin Direct Bilirubin AST ALT Alkaline Phosphatase C-Reactive Protein Total Protein Albumin Lipase Urine Color YELLOW Urine Appearance CLEAR Urine pH 6.5 Ur Specific [place] 1.015 Urine Protein NEG Urine Glucose (UA) 500 H Urine Ketones NEG Urine Blood NEG Urine Nitrite NEG Ur Leukocyte Esterase 1+ H Urine RBC 0 Urine WBC 5-9 H Ur Squamous Epith Cells TRACE Urine Bacteria TRACE Vancomycin Trough COVID-19 ([facility]) COVID-19 [employer] [place] Com Blood Type Antibody Screen 05/09/20 05/09/20 05/10/20 16:04 20:38 04:29 WBC 9.0 RBC 4.09 L Hgb 12.2 Hct 37.1 MCV 90.7 MCH 29.8 MCHC 32.9 RDW 13.0 Plt Count 311 MPV 9.4 Immature Gran % (Auto) 0.6 H Neut % (Auto) 63.8 Lymph % (Auto) 26.4 [place] % (Auto) 6.1 Eos % (Auto) 2.5 Baso % (Auto) 0.6 Lymph # (Auto) 2.4 [place] # (Auto) 0.6 Eos # (Auto) 0.2 Baso # (Auto) 0.1 Abs Immat Gran (auto) 0.05 H Absolute Neuts (auto) 5.8 Absolute Nucleated RBC 0.000 Nucleated RBC % (auto) 0.0 ESR PT INR Sodium Potassium Chloride Carbon Dioxide Anion Gap BUN Creatinine Estim Creat Clear Calc Estimated GFR POC Glucose 185 H 118 H Random Glucose Lactic Acid Calcium Total Bilirubin Direct Bilirubin AST ALT Alkaline Phosphatase C-Reactive Protein Total Protein Albumin Lipase Urine Color Urine Appearance Urine pH Ur Specific [place] Urine Protein Urine Glucose (UA) Urine Ketones Urine Blood Urine Nitrite Ur Leukocyte Esterase Urine RBC Urine WBC Ur Squamous Epith Cells Urine Bacteria Vancomycin Trough COVID-19 ([facility]) COVID-19 [employer] [place] Com Blood Type Antibody Screen 05/10/20 05/10/20 05/10/20 04:29 07:14 09:47 WBC RBC Hgb Hct MCV MCH MCHC RDW Plt Count MPV Immature Gran % (Auto) Neut % (Auto) Lymph % (Auto) [place] % (Auto) Eos % (Auto) Baso % (Auto) Lymph # (Auto) [place] # (Auto) Eos # (Auto) Baso # (Auto) Abs Immat Gran (auto) Absolute Neuts (auto) Absolute Nucleated RBC Nucleated RBC % (auto) ESR PT INR Sodium 140 Potassium 4.2 Chloride 103 Carbon Dioxide 27 Anion Gap 14 BUN 10 Creatinine 0.62 Estim Creat Clear Calc 88.8 Estimated GFR > 60 POC Glucose 131 H Random Glucose 119 H D Lactic Acid Calcium 8.4 D Total Bilirubin Direct Bilirubin AST ALT Alkaline Phosphatase C-Reactive Protein Total Protein Albumin Lipase Urine Color Urine Appearance Urine pH Ur Specific [place] Urine Protein Urine Glucose (UA) Urine Ketones Urine Blood Urine Nitrite Ur Leukocyte Esterase Urine RBC Urine WBC Ur Squamous Epith Cells Urine Bacteria Vancomycin Trough 8.9 L COVID-19 ([facility]) COVID-19 [employer] [place] [facility] Blood Type Antibody Screen 05/10/20 05/10/20 05/10/20 11:21 16:11 20:28 WBC RBC Hgb Hct MCV MCH MCHC RDW Plt Count MPV Immature Gran % (Auto) Neut % (Auto) Lymph % (Auto) [place] % (Auto) Eos % (Auto) Baso % (Auto) Lymph # (Auto) [place] # (Auto) Eos # (Auto) Baso # (Auto) Abs Immat Gran (auto) Absolute Neuts (auto) Absolute Nucleated RBC Nucleated RBC % (auto) ESR PT INR Sodium Potassium Chloride Carbon Dioxide Anion Gap BUN Creatinine Estim Creat Clear Calc Estimated GFR POC Glucose 181 H 72 235 H Random Glucose Lactic Acid Calcium Total Bilirubin Direct Bilirubin AST ALT Alkaline Phosphatase C-Reactive Protein Total Protein Albumin Lipase Urine Color Urine Appearance Urine pH Ur Specific [place] Urine Protein Urine Glucose (UA) Urine Ketones Urine Blood Urine Nitrite Ur Leukocyte Esterase Urine RBC Urine WBC Ur Squamous Epith Cells Urine Bacteria Vancomycin Trough COVID-19 ([facility]) COVID-19 [employer] Blood Type Antibody Screen 05/11/20 05/11/20 05/11/20 07:55 11:06 16:27 WBC RBC Hgb Hct MCV MCH MCHC RDW Plt Count MPV Immature Gran % (Auto) Neut % (Auto) Lymph % (Auto) [place] % (Auto) Eos % (Auto) Baso % (Auto) Lymph # (Auto) [place] # (Auto) Eos # (Auto) Baso # (Auto) Abs Immat Gran (auto) Absolute Neuts (auto) Absolute Nucleated RBC Nucleated RBC % (auto) ESR PT INR Sodium Potassium Chloride Carbon Dioxide Anion Gap BUN Creatinine Estim Creat Clear Calc Estimated GFR POC Glucose 89 312 H 225 H Random Glucose Lactic Acid Calcium Total Bilirubin Direct Bilirubin AST ALT Alkaline Phosphatase C-Reactive Protein Total Protein Albumin Lipase Urine Color Urine Appearance Urine pH Ur Specific [place] Urine Protein Urine Glucose (UA) Urine Ketones Urine Blood Urine Nitrite Ur Leukocyte Esterase Urine RBC Urine WBC Ur Squamous Epith Cells Urine Bacteria Vancomycin Trough COVID-19 ([facility]) COVID-19 [employer] [place] [facility] Blood Type Antibody Screen 05/11/20 05/11/20 05/12/20 20:13 21:56 07:18 WBC RBC Hgb Hct MCV MCH MCHC RDW Plt Count MPV Immature Gran % (Auto) Neut % (Auto) Lymph % (Auto) [place] % (Auto) Eos % (Auto) Baso % (Auto) Lymph # (Auto) [place] # (Auto) Eos # (Auto) Baso # (Auto) Abs Immat Gran (auto) Absolute Neuts (auto) Absolute Nucleated RBC Nucleated RBC % (auto) ESR PT INR Sodium Potassium Chloride Carbon Dioxide Anion Gap BUN Creatinine Estim Creat Clear Calc Estimated GFR POC Glucose 198 H 236 H Random Glucose Lactic Acid Calcium Total Bilirubin Direct Bilirubin AST ALT Alkaline Phosphatase C-Reactive Protein Total Protein Albumin Lipase Urine Color Urine Appearance Urine pH Ur Specific [place] Urine Protein Urine Glucose (UA) Urine Ketones Urine Blood Urine Nitrite Ur Leukocyte Esterase Urine RBC Urine WBC Ur Squamous Epith Cells Urine Bacteria Vancomycin Trough 11.8 COVID-19 ([facility]) [employer] Blood Type Antibody Screen 05/12/20 05/12/20 05/12/20 11:33 16:34 20:25 WBC RBC Hgb Hct MCV MCH MCHC RDW Plt Count MPV Immature Gran % (Auto) Neut % (Auto) Lymph % (Auto) [place] % (Auto) Eos % (Auto) Baso % (Auto) Lymph # (Auto) [place] # (Auto) Eos # (Auto) Baso # (Auto) Abs Immat Gran (auto) Absolute Neuts (auto) Absolute Nucleated RBC Nucleated RBC % (auto) ESR PT INR Sodium Potassium Chloride Carbon Dioxide Anion Gap BUN Creatinine Estim Creat Clear Calc Estimated GFR POC Glucose 176 H 182 H 177 H Random Glucose Lactic Acid Calcium Total Bilirubin Direct Bilirubin AST ALT Alkaline Phosphatase C-Reactive Protein Total Protein Albumin Lipase Urine Color Urine Appearance Urine pH Ur Specific [place] Urine Protein Urine Glucose (UA) Urine Ketones Urine Blood Urine Nitrite Ur Leukocyte Esterase Urine RBC Urine WBC Ur Squamous Epith Cells Urine Bacteria Vancomycin Trough COVID-19 ([facility]) [employer] Blood Type Antibody Screen 05/13/20 05/13/20 05/13/20 06:03 07:10 08:08 WBC RBC Hgb Hct MCV MCH MCHC RDW Plt Count MPV Immature Gran % (Auto) Neut % (Auto) Lymph % (Auto) [place] % (Auto) Eos % (Auto) Baso % (Auto) Lymph # (Auto) [place] # (Auto) Eos # (Auto) Baso # (Auto) Abs Immat Gran (auto) Absolute Neuts (auto) Absolute Nucleated RBC Nucleated RBC % (auto) ESR PT 14.3 H INR 1.2 H Sodium 139 Potassium 4.5 Chloride 104 Carbon Dioxide 27 Anion Gap 13 BUN 9 Creatinine 0.63 Estim Creat Clear Calc 87.4 Estimated GFR > 60 POC Glucose 156 H Random Glucose 166 H D Lactic Acid Calcium 7.7 L D Total Bilirubin Direct Bilirubin AST ALT Alkaline Phosphatase C-Reactive Protein Total Protein Albumin Lipase Urine Color Urine Appearance Urine pH Ur Specific [place] Urine Protein Urine Glucose (UA) Urine Ketones Urine Blood Urine Nitrite Ur Leukocyte Esterase Urine RBC Urine WBC Ur Squamous Epith Cells Urine Bacteria Vancomycin Trough COVID-19 ([facility]) [employer] Blood Type Antibody Screen 05/13/20 05/13/20 05/13/20 09:22 12:38 16:05 WBC RBC Hgb Hct MCV MCH MCHC RDW Plt Count MPV Immature Gran % (Auto) Neut % (Auto) Lymph % (Auto) [place] % (Auto) Eos % (Auto) Baso % (Auto) Lymph # (Auto) [place] # (Auto) Eos # (Auto) Baso # (Auto) Abs Immat Gran (auto) Absolute Neuts (auto) Absolute Nucleated RBC Nucleated RBC % (auto) ESR PT INR Sodium Potassium Chloride Carbon Dioxide Anion Gap BUN Creatinine Estim Creat Clear Calc Estimated GFR POC Glucose 98 106 188 H Random Glucose Lactic Acid Calcium Total Bilirubin Direct Bilirubin AST ALT Alkaline Phosphatase C-Reactive Protein Total Protein Albumin Lipase Urine Color Urine Appearance Urine pH Ur Specific [place] Urine Protein Urine Glucose (UA) Urine Ketones Urine Blood Urine Nitrite Ur Leukocyte Esterase Urine RBC Urine WBC Ur Squamous Epith Cells Urine Bacteria Vancomycin Trough COVID-19 ([facility]) [facility] Blood Type Antibody Screen 05/13/20 05/13/20 05/14/20 20:17 22:39 07:38 WBC RBC Hgb Hct MCV MCH MCHC RDW Plt Count MPV Immature Gran % (Auto) Neut % (Auto) Lymph % (Auto) [place] % (Auto) Eos % (Auto) Baso % (Auto) Lymph # (Auto) [place] # (Auto) Eos # (Auto) Baso # (Auto) Abs Immat Gran (auto) Absolute Neuts (auto) Absolute Nucleated RBC Nucleated RBC % (auto) ESR PT INR Sodium Potassium Chloride Carbon Dioxide Anion Gap BUN Creatinine Estim Creat Clear Calc Estimated GFR POC Glucose 148 H 168 H Random Glucose Lactic Acid Calcium Total Bilirubin Direct Bilirubin AST ALT Alkaline Phosphatase C-Reactive Protein Total Protein Albumin Lipase Urine Color Urine Appearance Urine pH Ur Specific [place] Urine Protein Urine Glucose (UA) Urine Ketones Urine Blood Urine Nitrite Ur Leukocyte Esterase Urine RBC Urine WBC Ur Squamous Epith Cells Urine Bacteria Vancomycin Trough 13.5 COVID-19 ([facility]) COVID-19 [employer] Blood Type Antibody Screen 05/14/20 05/14/20 05/14/20 11:44 16:10 21:12 WBC RBC Hgb Hct MCV MCH MCHC RDW Plt Count MPV Immature Gran % (Auto) Neut % (Auto) Lymph % (Auto) [place] % (Auto) Eos % (Auto) Baso % (Auto) Lymph # (Auto) [place] # (Auto) Eos # (Auto) Baso # (Auto) Abs Immat Gran (auto) Absolute Neuts (auto) Absolute Nucleated RBC Nucleated RBC % (auto) ESR PT INR Sodium Potassium Chloride Carbon Dioxide Anion Gap BUN Creatinine Estim Creat Clear Calc Estimated GFR POC Glucose 140 H 259 H 95 Random Glucose Lactic Acid Calcium Total Bilirubin Direct Bilirubin AST ALT Alkaline Phosphatase C-Reactive Protein Total Protein Albumin Lipase Urine Color Urine Appearance Urine pH Ur Specific [place] Urine Protein Urine Glucose (UA) Urine Ketones Urine Blood Urine Nitrite Ur Leukocyte Esterase Urine RBC Urine WBC Ur Squamous Epith Cells Urine Bacteria Vancomycin Trough COVID-19 ([facility]) COVID-19 [employer] Blood Type Antibody Screen 05/15/20 05/15/20 05/15/20 08:06 11:11 11:15 WBC RBC Hgb Hct MCV MCH MCHC RDW Plt Count MPV Immature Gran % (Auto) Neut % (Auto) Lymph % (Auto) [place] % (Auto) Eos % (Auto) Baso % (Auto) Lymph # (Auto) [place] # (Auto) Eos # (Auto) Baso # (Auto) Abs Immat Gran (auto) Absolute Neuts (auto) Absolute Nucleated RBC Nucleated RBC % (auto) ESR PT INR Sodium Potassium Chloride Carbon Dioxide Anion Gap BUN Creatinine Estim Creat Clear Calc Estimated GFR POC Glucose 101 205 H Random Glucose Lactic Acid Calcium Total Bilirubin Direct Bilirubin AST ALT Alkaline Phosphatase C-Reactive Protein Total Protein Albumin Lipase Urine Color Urine Appearance Urine pH Ur Specific [place] Urine Protein Urine Glucose (UA) Urine Ketones Urine Blood Urine Nitrite Ur Leukocyte Esterase Urine RBC Urine WBC Ur Squamous Epith Cells Urine Bacteria Vancomycin Trough 10.7 COVID-19 ([facility]) COVID-19 [employer] [place] [facility] Blood Type Antibody Screen 05/15/20 05/15/20 05/15/20 11:55 16:33 21:01 WBC RBC Hgb Hct MCV MCH MCHC RDW Plt Count MPV Immature Gran % (Auto) Neut % (Auto) Lymph % (Auto) [place] % (Auto) Eos % (Auto) Baso % (Auto) Lymph # (Auto) [place] # (Auto) Eos # (Auto) Baso # (Auto) Abs Immat Gran (auto) Absolute Neuts (auto) Absolute Nucleated RBC Nucleated RBC % (auto) ESR PT INR Sodium Potassium Chloride Carbon Dioxide Anion Gap BUN Creatinine Estim Creat Clear Calc Estimated GFR POC Glucose 123 H 139 H Random Glucose Lactic Acid Calcium Total Bilirubin Direct Bilirubin AST ALT Alkaline Phosphatase C-Reactive Protein Total Protein Albumin Lipase Urine Color Urine Appearance Urine pH Ur Specific [place] Urine Protein Urine Glucose (UA) Urine Ketones Urine Blood Urine Nitrite Ur Leukocyte Esterase Urine RBC Urine WBC Ur Squamous Epith Cells Urine Bacteria Vancomycin Trough COVID-19 ([facility]) COVID-[facility] Blood Type O Positive Antibody Screen NEGATIVE 05/16/20 05/16/20 05/16/20 07:34 09:19 11:25 WBC RBC Hgb Hct MCV MCH MCHC RDW Plt Count MPV Immature Gran % (Auto) Neut % (Auto) Lymph % (Auto) [place] % (Auto) Eos % (Auto) Baso % (Auto) Lymph # (Auto) [place] # (Auto) Eos # (Auto) Baso # (Auto) Abs Immat Gran (auto) Absolute Neuts (auto) Absolute Nucleated RBC Nucleated RBC % (auto) ESR PT INR Sodium 138 Potassium 3.7 Chloride 103 Carbon Dioxide 30 H Anion Gap 9 L BUN 6 L Creatinine 0.65 Estim Creat Clear Calc 84.7 Estimated GFR > 60 POC Glucose 109 213 H Random Glucose 171 H Lactic Acid Calcium 7.6 L Total Bilirubin Direct Bilirubin AST ALT Alkaline Phosphatase C-Reactive Protein Total Protein Albumin Lipase Urine Color Urine Appearance Urine pH Ur Specific [place] Urine Protein Urine Glucose (UA) Urine Ketones Urine Blood Urine Nitrite Ur Leukocyte Esterase Urine RBC Urine WBC Ur Squamous Epith Cells Urine Bacteria Vancomycin Trough COVID-19 ([facility]) COVID-19 [employer] [place] [facility] Blood Type Antibody Screen 05/16/20 05/16/20 05/17/20 16:38 20:57 00:15 WBC RBC Hgb Hct MCV MCH MCHC RDW Plt Count MPV Immature Gran % (Auto) Neut % (Auto) Lymph % (Auto) [place] % (Auto) Eos % (Auto) Baso % (Auto) Lymph # (Auto) [place] # (Auto) Eos # (Auto) Baso # (Auto) Abs Immat Gran (auto) Absolute Neuts (auto) Absolute Nucleated RBC Nucleated RBC % (auto) ESR PT INR Sodium Potassium Chloride Carbon Dioxide Anion Gap BUN Creatinine Estim Creat Clear Calc Estimated GFR POC Glucose 211 H 202 H Random Glucose Lactic Acid Calcium Total Bilirubin Direct Bilirubin AST ALT Alkaline Phosphatase C-Reactive Protein Total Protein Albumin Lipase Urine Color Urine Appearance Urine pH Ur Specific [place] Urine Protein Urine Glucose (UA) Urine Ketones Urine Blood Urine Nitrite Ur Leukocyte Esterase Urine RBC Urine WBC Ur Squamous Epith Cells Urine Bacteria Vancomycin Trough 12.5 COVID-19 ([facility]) [employer] Blood Type Antibody Screen 05/17/20 05/17/20 05/17/20 07:48 11:36 16:11 WBC RBC Hgb Hct MCV MCH MCHC RDW Plt Count MPV Immature Gran % (Auto) Neut % (Auto) Lymph % (Auto) [place] % (Auto) Eos % (Auto) Baso % (Auto) Lymph # (Auto) [place] # (Auto) Eos # (Auto) Baso # (Auto) Abs Immat Gran (auto) Absolute Neuts (auto) Absolute Nucleated RBC Nucleated RBC % (auto) ESR PT INR Sodium Potassium Chloride Carbon Dioxide Anion Gap BUN Creatinine Estim Creat Clear Calc Estimated GFR POC Glucose 118 H 167 H 131 H Random Glucose Lactic Acid Calcium Total Bilirubin Direct Bilirubin AST ALT Alkaline Phosphatase C-Reactive Protein Total Protein Albumin Lipase Urine Color Urine Appearance Urine pH Ur Specific [place] Urine Protein Urine Glucose (UA) Urine Ketones Urine Blood Urine Nitrite Ur Leukocyte Esterase Urine RBC Urine WBC Ur Squamous Epith Cells Urine Bacteria Vancomycin Trough COVID-19 ([facility]) COVID-19 [employer] Blood Type Antibody Screen 05/17/20 05/18/20 20:14 07:17 WBC RBC Hgb Hct MCV MCH MCHC RDW Plt Count MPV Immature Gran % (Auto) Neut % (Auto) Lymph % (Auto) [place] % (Auto) Eos % (Auto) Baso % (Auto) Lymph # (Auto) [place] # (Auto) Eos # (Auto) Baso # (Auto) Abs Immat Gran (auto) Absolute Neuts (auto) Absolute Nucleated RBC Nucleated RBC % (auto) ESR PT INR Sodium Potassium Chloride Carbon Dioxide Anion Gap BUN Creatinine Estim Creat Clear Calc Estimated GFR POC Glucose 219 H 97 Random Glucose Lactic Acid Calcium Total Bilirubin Direct Bilirubin AST ALT Alkaline Phosphatase C-Reactive Protein Total Protein Albumin Lipase Urine Color Urine Appearance Urine pH Ur Specific [place] Urine Protein Urine Glucose (UA) Urine Ketones Urine Blood Urine Nitrite Ur Leukocyte Esterase Urine RBC Urine WBC Ur Squamous Epith Cells Urine Bacteria Vancomycin Trough COVID-19 ([facility]) COVID-19 Clin Com Blood Type Antibody Screen Airway Mallampati Class: II (Edentulous) TM Dist: >3cm Neck ROM: Full Loose/Missing/Broken Teeth: Yes, Upper and Lower Heart: RRR Lungs: CTA Assessment and Plan Assessment Anesthesia Assessment: Anesthesia Plan Discussed and Chart Reviewed Final Anesthetic Review NPO: Yes ASA Class: III Final Preanesthetic Review: Meds/Allgs Chart Reviewed, Consent Obtained/Reviewed and Anes Risks/Benef Reviewed Patient Risk: Intermediate Procedure Risk: Intermediate Anesthetic Plan Anesthetic Plan: GA Disposition: Standard PACU
[2020-05-18 09:00] LABS: Glucose, Whole Blood 90 mg/dL (60-115)
--- NOTE | 2020-05-18 13:18 | P.OP_ITS ---
Operative Note Operative Note Date of Service: 05/18/20 Narrative: Operative note by [facility] Preoperative diagnosis: Atherosclerosis with nonhealing left leg ulcer Postoperative diagnosis: Same Procedure:1. Left femoral to above knee popliteal bypass (Lentner Propaten) 2. Left popliteal thrombectomy 3. Left popliteal endarterectomy 4. Left left femoral endarterectomy Surgeon:Caleb Aragon M.D. Student Career Development Specialist: Dr. Lowery Anesthesia: General Specimens: 2 Drains: None Estimated blood loss: 150 mL Indications: 59-year-old female with a history of nonhealing left leg ulcer. She had an ulceration on the 4th and 5th toe along with the posterior aspect of the calf. She had undergone endovascular intervention which was unsuccessful in recannulate Ng the SFA. She now presents for femoral to popliteal bypass. The patient has signed the informed consent after reviewing risks, complications, benefits, and alternatives previously discussed with the patient in my office. The patient was given the opportunity to ask any additional questions or voice any concerns. All questions were answered to the patient's satisfaction. Procedure in detail: Patient was brought to the operating room prior to which a time-out was called for patient identification site verification left leg was prepped and draped in the standard surgical fashion left femoral cutdown was taken in the groin just below the inguinal ligament in longitudinal manner. We were able to easily identify the common femoral profundus and SFA. This was isolated with silastic loops. We then turned our attention to the above knee popliteal artery. Significant amount of time had to be spent dissecting this area. It was noted that the initially the vessel was identified and noted to be thrombosed. At this point we then isolated this with silastic loops. We created a tunnel from the femoral to the popliteal and passed a umbilical tape through this tunnel. Once this was accomplished 5000 units of systemic heparin was administered. Of note an additional 1000 was administered at the 1/2 hour lowell and an additional 1000 was administered at the 1 hour lowell. Once this was accomplished we 1st turned our attention at the above knee popliteal which appeared to be thrombosed. A longitudinal incision was created. We were able to endarterectomized locally but then we passed a Franko on down. We were able to thrombectomize this area. Clot and plaque was sent off the table as specimen. A 6 x 50 Lentner Propaten was then trimmed down to appropriate size. This was anastomosed with a 6 0 Lentner suture in a circumferential manner. Prior to closure this was flushed clean. Once this was flushed through the graft we then reinstalled heparinized saline through the graft. At this point we turned our attention to the femoral on. We passed the graft through the tunnel. At the femoral we a again isolated the common femoral profunda and SFA. Arteriotomy was created. Localized femoral endarterectomy had to be performed in order to create a clear for area for anastomotic site. Once this was accomplished we then trimmed the Lentner Propaten down to appropriate side. The this was circumferentially anastomosed with a Lentner 5 0 suture. Once this was accomplished prior to closure it was flushed clear. We then were able to close successfully. There were several in bleeding sites that had to be closed with an interrupted 6 0 Prolene suture. Once this was all accomplished snow was used for hemostatic agent. After adequate hemostasis was achieved, FloSeal was used to obtain hemostasis. Deep layer was reapproximated using 2 0 poly sore. Superficial layer with 3-0 poly sore. Finally skin with skin clips. Sterile dressing was applied. At the end the case sponge instrument counts were correct. Patient tolerated the procedure well. Returned to recovery with stable vitals. This note is constructed using voice recognition software. While every effort has been made to ensure accuracy, landscape crew leader errors may have been included. Thank you for allowing me to participate in the care of your patient. Yours sincerely, Caleb Aragon MD, FACS, R.P.V.I.
[2020-05-18] MEDS: 0.9 % Sodium Chloride 1,000 ML 80 ML IVCONT (14:00)
[2020-05-18 14:01] LABS: Glucose, Whole Blood 175 mg/dL (60-115)
--- NOTE | 2020-05-18 14:29 | MHC.CM.PN ---
EMR REVIEWED, PER MULTIDISCIPLINARY ROUNDS FEM-POP BYPASS DONE, NO PLAN FOR D/C TODAY. [facility] IS FOLLOWING.
[2020-05-18] MEDS: Morphine Sulfate 2 MG/ML CARTRIDGE IVPUSH ×2 (14:30→20:14)
[2020-05-18] MEDS: vancomycin HCL 1,000 MG in 0.9 % Sodium Chloride 250 ML 270 MG IV ×2 (14:41→22:32)
[2020-05-18] MEDS: oxyCODONE HCl Immed Release 5 MG TABLET 10 MG PO (14:44)
--- NOTE | 2020-05-18 14:51 | HO.PM.IMPN ---
Subjective Subjective Date of Service: 05/18/20 Interval History: Patient NPO for vascular procedure this morning, saw patient postprocedure at PACU she is complaining of left leg pain, denies shortness of breath, no chest pain. ROS General no headache, no dizziness ,no fever CVS no chest pain, no palpitation. Respiratory no cough, no sob. Gastrointestinal no nausea no vomiting, no abdominal pain Physical Exam Vital Signs: Vital Signs: Last Vital Signs Temp 97.8 F 05/18/20 13:06 Pulse 70 05/18/20 14:30 Resp 18 05/18/20 14:30 BP 128/54 L 05/18/20 14:30 Pulse Ox 98 05/18/20 14:30 Body Mass Index 25.9 Patient awake alert appears to be in moderate distress related to leg pain Neck no elevated JVD Lungs diminished breath sounds, no wheeze no rhonchi Heart regular rate rhythm Abdomen soft nontender Extremities no edema, left 4th and 5th toe superficial ulceration as stable, incision for left fem-pop bypass with no drainage Somers catheter clear urine Neuro patient awake alert to time place and person, speech clear Objective Data Current Medications Generic Name Dose Route Start Last Admin Trade Name Freq PRN Reason Stop Dose Admin Acetaminophen 650 mg 05/09/20 05:24 05/16/20 09:11 Acetaminophen 325 Mg Tablet PO 650 mg Q6H PRN Administration Pain, Mild (Pain Scale 1-3) Acetaminophen 650 mg 05/13/20 11:26 Acetaminophen 325 Mg Tablet PO Q6H PRN Pain, Mild (Pain Scale 1-3) Albuterol Sulfate 2.5 mg 05/18/20 08:24 Albuterol Sulfate (0.083%) 2.5 Mg/3 Ml Vial.Neb INHALE ONCE PRN Wheezing Amlodipine Besylate 5 mg 05/16/20 11:15 05/18/20 07:37 Amlodipine Besylate 5 Mg Tablet PO 5 mg DAILY [facility] Administration Protocol Aspirin 81 mg 05/09/20 09:00 05/18/20 07:39 Aspirin Enteric Coated 81 Mg Tablet. PO Not Given DAILY [facility] Atorvastatin Calcium 80 mg 05/09/20 09:00 05/18/20 07:37 Atorvastatin Calcium 80 Mg Tablet PO 80 mg DAILY [facility] Administration Carvedilol 25 mg 05/09/20 09:00 05/18/20 07:37 Carvedilol 25 Mg Tablet PO 25 mg BID JORY Administration Protocol Docusate Sodium 100 mg 05/09/20 05:24 Docusate Sodium 100 Mg Capsule PO DAILY PRN Constipation Enoxaparin Sodium 40 mg 05/09/20 06:00 05/18/20 05:35 Enoxaparin Sodium 40 Mg/0.4 Ml Syringe SUBCUT 40 mg Q24H [facility] Administration Escitalopram Oxalate 20 mg 05/09/20 09:00 05/18/20 07:37 Escitalopram Oxalate 20 Mg Tablet PO 20 mg DAILY [facility] Administration Fentanyl 25 mcg 05/18/20 08:24 Fentanyl Citrate/Pf 100 Mcg/2 Ml Vial IVPUSH Q5M PRN Pain, Moderate (Pain Scale 4-6 Gabapentin 800 mg 05/09/20 09:00 05/18/20 07:37 Gabapentin 400 Mg Capsule PO 800 mg TID [facility] Administration Piperacillin Sod/Tazobactam 50 mls @ 100 mls/hr 05/09/20 05:24 05/18/20 13:30 Sod 3.375 gm/ Sodium Chloride IV 100 mls/hr Q6H [facility] Administration Vancomycin HCl 1,000 mg/ 270 mls @ 270 mls/hr 05/18/20 09:00 05/18/20 14:41 Sodium Chloride IV 270 mls/hr Q12H [facility] Administration Promethazine HCl 6.25 mg/ 50.25 mls @ 201 mls/hr 05/18/20 08:24 Sodium Chloride IV ONCE PRN Nausea and Vomiting Sodium Chloride 1,000 mls @ 80 mls/hr 05/18/20 13:15 05/18/20 14:00 Ns IVCONT 80 mls/hr .[id number] J[facility] Administration Insulin Glargine 7 unit 05/09/20 09:00 05/18/20 07:39 Insulin Glargine,Hum.Rec.Anlog 100 Unit/Ml 10 Ml Vial SUBCUT Not Given DAILY [facility] Insulin Human Lispro 0 unit 05/09/20 07:30 05/18/20 07:38 Insulin Lispro 100 Unit/Ml 3 Ml Vial SUBCUT Not Given QIDACHS [facility] Protocol Lisinopril 40 mg 05/09/20 09:00 05/18/20 07:37 Lisinopril 40 Mg Tablet PO 40 mg DAILY [facility] Administration Protocol Mirtazapine 45 mg 05/09/20 21:00 05/17/20 20:24 Mirtazapine 15 Mg Tablet PO 45 mg BEDTIME [facility] Administration Morphine Sulfate 2 mg 05/18/20 13:06 05/18/20 14:30 Morphine Sulfate 2 Mg/Ml Cartridge IVPUSH 2 mg Q4H PRN Administration Pain, Severe (Pain Scale 7-10) Multivitamins/Vitamin C 1 tab 05/09/20 09:00 05/18/20 07:39 Multivitamin Tablet PO Not Given DAILY [facility] Omeprazole 20 mg 05/09/20 06:30 05/18/20 05:35 Omeprazole 20 Mg Capsule. PO 20 mg DAILY@0630 [facility] Administration Ondansetron HCl 4 mg 05/09/20 05:24 Ondansetron Hcl 4 Mg/2 Ml Vial IVPUSH Q8H PRN Nausea and Vomiting Oxycodone HCl 7.5 mg 05/15/20 08:55 05/17/20 20:32 Oxycodone Hcl Immed Release 5 Mg Tablet PO 7.5 mg Q4H PRN Administration Pain, Moderate (Pain Scale 4-6 Oxycodone HCl 5 mg 05/18/20 08:24 Oxycodone Hcl Immed Release 5 Mg Tablet PO ONCE PRN Pain, Severe (Pain Scale 7-10) Pharmacy Consult 1 each 05/08/20 22:17 Consult Rx Perform Med Rec MISCELLANE ONCE PRN Consult order Sodium Chloride 3 ml 05/09/20 08:00 05/18/20 07:38 0.9 % Sodium Chloride Flush 3 Ml Syringe IVFLUSH 3 ml QSHIFT [facility] Administration Labs CBC & Chem 7: 05/10/20 04:29 05/16/20 09:19 Microbiology Microbiology Results: Microbiology 05/08/20 22:52 Blood - Venous Blood Culture - Final No growth after 5 days. 05/08/20 22:52 Blood - Venous Blood Culture - Final No growth after 5 days. 05/09/20 05:53 Urine clean catch - Clean Catch Midstream Urine Culture - Final Assessment and Plan (1) Osteomyelitis: Status: Acute (2) Infection of toe: Status: Acute (3) PAD (peripheral artery disease): Status: Acute (4) Diabetic foot ulcer: Status: Acute (5) Uncontrolled diabetes mellitus: Status: Acute (6) HTN (hypertension): Status: Acute Assessment and Plan: 59-year-old female who presents to the hospital with complaints of nonhealing ulcers of her left foot. . Sent by wound clinic. # Nonhealing diabetic left foot ulcer, MRI foot suspicious for 5th toe osteomyelitis,on IV vancomycin and Zosyn,day 10 blood cultures x2 neg, patient seen by Dr. Lowery no debridement required cont. dry sterile dressing., Case discussed with Dr. Castellanos she recommend 6 weeks of IV ertapenem upon discharge, Patient underwent angiogram 05/13 and underwent left-sided fem-pop bypass, today by Dr. Aragon postprocedure patient is being transferred to intensive care unit for close monitoring, postprocedure patient is complaining of significant pain Continue pain medication ,check CBC, BMP at a.m. advanced diet as per surgery On IV fluid and has Somers catheter placed for procedure and urinary output monitoring. # diabetes mellitus/peripheral neuropathy - blood sugars stable, continue home insulin and low-dose sliding scale insulin, continue diabetic diet, on Neurontin for peripheral neuropathy. # hypertension - blood pressure stable today, on Norvasc 5 mg (recently started) on Coreg and lisinopril, follow BP closely postprocedure # CAD - no chest pain continue aspirin and carvedilol. # GERD - continue PPI # hyperlipidemia continue Lipitor # mood continue Remeron and Lexapro DVT prophylaxis:Lovenox
[2020-05-18] MEDS: fentaNYL citrate/PF 100 MCG/2 ML VIAL 25 MCG IVPUSH ×4 (15:00→15:30)
[2020-05-18 16:36] LABS: Glucose, Whole Blood 175 mg/dL (60-115)
[2020-05-18] MEDS: Insulin Lispro 100 UNIT/ML 3 ML VIAL SUBCUT ×2 (17:18→21:29)
[2020-05-18 20:28] LABS: Basophils Percent Auto 0.2 % (0-2); Hemoglobin 8.5 g/dl (12.0-16.0); Imm Gran Abs Auto 0.03 X10*3/uL (0.00-0.03); Imm Gran Pct Auto 0.3 % (0.0-0.4); Lymphocytes Absolute Auto 0.6 X10*3/uL (1.2-4.9); Lymphocytes Percent Auto 5.7 % (20-40); MANUAL DIFF FLAG SCAN; Mean Corpuscular HGB Conc 32.7 g/dl (31.0-35.0); Mean Corpuscular Hemoglobin 29.9 pg (27.0-33.0); Mean Corpuscular Volume 91.5 fL (80-98); Mean Platelet Volume 9.3 fL (9.4-12.3); Monocytes Absolute Auto 0.8 X10*3/uL (0.1-1.2); Monocytes Percent Auto 7.5 % (2-11); Neutrophils Absolute Auto 8.7 X10*3/uL (2.0-8.3); Neutrophils Percent Auto 86.3 % (45-73); Platelet Count 317 X10*3/uL (160-400); Red Blood Count 2.84 X10*6/uL (4.20-5.50); Red Cell Distribution Width 13.2 % (11.0-16.0); SCAN SMEAR FLAG 1; White Blood Count 10.1 X10*3/uL (4.8-10.8)
[2020-05-18 20:49] LABS: Glucose, Whole Blood 225 mg/dL (60-115)
[2020-05-18 20:56] LABS: SLIDE REVIEW VERIFIED
[2020-05-18] MEDS: 0.9 % Sodium Chloride 500 ML IV (21:22)
[2020-05-18] MEDS: Mirtazapine 15 MG TABLET 45 MG PO (21:29)
--- NOTE | 2020-05-18 22:18 | PM.CCPN ---
Subjective Subjective Date of Service: 05/18/20 <Dalia Baig PA-C - Last Filed: 05/19/20 04:51> Interval History: Pt is a 59yo female with past medical history of DM, CAD, HTN, asthma, arthritis, who presents to the hospital with complaints of left foot toe ulcers as well as nonhealing ulcer on her left calf. Wound care sent pt to ED for non healing wounds. Patient is also stating that she has painful ulcers in the last 2 digits of her left foot, painful 10/10, swollen, red, and warm, was draining clear liquid, she reports that she is currently on antibiotics with no improvement of her symptoms. No headache, no change in vision, no chest pain, no shortness of breath, no abdominal pain nausea or vomiting, no diarrhea constipation. Hospital course so far is as follows: Pt was being treated for Nonhealing diabetic left foot ulcer, MRI foot suspicious for 5th toe osteomyelitis, left foot pain, otherwise no fever, no chills, no leukocytosis. ESR 12, CRP 1.09, was on antibiotics for 2 weeks outpatient on IV vancomycin and Zosyn,day 6, patient seen by Dr. Lowery no debridement required cont. dry sterile dressing. Patient seen by Dr. Castellanos she recommend 6 weeks of IV ertapenem upon discharge, blood cultures x2 negative. Patient underwent angiogram 05/13 and will require left-sided fem-pop bypass, to be arranged by Dr. Aragon, patient will under go preop eval by Cardiology. Continue oxycodone and morphine for pain control . Today, Dr Aragon performed a left sided fem-pop bypass, he reports no complications, he states BP goal is 120-170 systolic, no dressing needed on wounds on left 5th toe and left calf. Continue 80mls/hr NS. Check H&H as BP is low. H&H down but no need for blood products. Will give 500cc bolus NS. <Dalia Baig PA-C - Last Filed: 05/19/20 04:51> Physical Exam Vital Signs: Vital Signs: Last Vital Signs Temp 97.4 F 05/18/20 19:01 Pulse 63 05/18/20 22:00 Resp 21 H 05/18/20 22:00 BP 103/46 L 05/18/20 22:00 Pulse Ox 92 05/18/20 22:00 Body Mass Index 25.9 <Dalia Baig PA-C - Last Filed: 05/19/20 04:51> Const: General: cooperative, healthy appearing, comfortable and no acute distress <Dalia Baig PA-C - Last Filed: 05/19/20 04:51> Nutritional Appearance: average body habitus <Dalia Baig PA-C - Last Filed: 05/19/20 04:51> Orientation/consciousness: patient oriented x3 <Dalia Baig PA-C - Last Filed: 05/19/20 04:51> Eyes: General: appearance normal, both eyes and all related structures <Dalia Baig PA-C - Last Filed: 05/19/20 04:51> Neck: Neck: Yes normal visual inspection <Dalia Baig PA-C - Last Filed: 05/19/20 04:51> Resp: Effort & Inspection: normal respiratory effort <Dalia Baig PA-C - Last Filed: 05/19/20 04:51> Auscultation: clear to auscultation bilaterally <Dalia Baig PA-C - Last Filed: 05/19/20 04:51> Cardio: Rate: regular rate <Dalia Baig PA-C - Last Filed: 05/19/20 04:51> Rhythm: regular rhythm <Dalia Baig PA-C - Last Filed: 05/19/20 04:51> Neuro: General: patient oriented x3 <Dalia Baig PA-C - Last Filed: 05/19/20 04:51> Extrem: Other: Left 4&5 toes superficial dry ulceration, left groin with bandage slight drop of blood but CDI otherwise. <Dalia Baig PA-C - Last Filed: 05/19/20 04:51> General: Yes no pedal edema <Dalia Baig PA-C - Last Filed: 05/19/20 04:51> Objective Data Labs CBC & Chem 7: : 05/19/20 05:45 05/19/20 05:45 <Dalia Baig PA-C - Last Filed: 05/19/20 04:51> Labs: Laboratory Results - last 24 hr 05/18/20 05/18/20 05/18/20 07:17 08:01 13:57 WBC RBC Hgb Hct MCV MCH MCHC RDW Plt Count MPV Immature Gran % (Auto) Neut % (Auto) Lymph % (Auto) Pender % (Auto) Eos % (Auto) Baso % (Auto) Lymph # (Auto) Pender # (Auto) Eos # (Auto) Baso # (Auto) Abs Immat Gran (auto) Absolute Neuts (auto) Absolute Nucleated RBC Nucleated RBC % (auto) Smear Tech's Comments POC Glucose 97 90 175 H 05/18/20 05/18/20 05/18/20 16:33 20:20 20:44 WBC 10.1 RBC 2.84 L D Hgb 8.5 L D Hct 26.0 L D MCV 91.5 MCH 29.9 MCHC 32.7 RDW 13.2 Plt Count 317 MPV 9.3 L Immature Gran % (Auto) 0.3 Neut % (Auto) 86.3 H Lymph % (Auto) 5.7 L Pender % (Auto) 7.5 Eos % (Auto) 0.0 Baso % (Auto) 0.2 Lymph # (Auto) 0.6 L Pender # (Auto) 0.8 Eos # (Auto) 0.0 Baso # (Auto) 0.0 Abs Immat Gran (auto) 0.03 Absolute Neuts (auto) 8.7 H Absolute Nucleated RBC 0.000 Nucleated RBC % (auto) 0.0 Smear Tech's Comments VERIFIED POC Glucose 175 H 225 H <Dalia Baig PA-C - Last Filed: 05/19/20 04:51> Microbiology Microbiology Results: Microbiology 05/08/20 22:52 Blood - Venous Blood Culture - Final No growth after 5 days. 05/08/20 22:52 Blood - Venous Blood Culture - Final No growth after 5 days. 05/09/20 05:53 Urine clean catch - Clean Catch Midstream Urine Culture - Final <Dalia Baig PA-C - Last Filed: 05/19/20 04:51> Progress Note: A&P Assessment and plan (1) Diabetic foot ulcer: Status: Acute <Dalia Baig PA-C - Last Filed: 05/19/20 04:51> (2) PAD (peripheral artery disease): Status: Acute <Dalia Baig PA-C - Last Filed: 05/19/20 04:51> (3) Status post femoral-popliteal bypass surgery: Status: Acute <Dalia Baig PA-C - Last Filed: 05/19/20 04:51> (4) Osteomyelitis: Status: Acute <Dalia Baig PA-C - Last Filed: 05/19/20 04:51> (5) HTN (hypertension): Status: Acute <Dalia Baig PA-C - Last Filed: 05/19/20 04:51> (6) Uncontrolled diabetes mellitus: Status: Acute <Dalia Baig PA-C - Last Filed: 05/19/20 04:51> (7) Infection of toe: Status: Acute <Dalia Baig PA-C - Last Filed: 05/19/20 04:51> Time Spent With Patient Time: Total time spent is greater than 50% in coordination of care (as documented) at patient's floor/unit and/or counseling patient: <Dalia Baig PA-C - Last Filed: 05/19/20 04:51> Total time spent with greater than 50% in coordination of care (as documented) at patient's floor/unit and/or counseling patient:: 45 <Dalia Baig PA-C - Last Filed: 05/19/20 04:51> No Severe Sepsis: No Severe Sepsis <KIMBERLY Khan Last Filed: 05/19/20 04:51> Critical Care Time Critical Care Time (minutes): 30 <KIMBERLY Khan Last Filed: 05/19/20 04:51>
[2020-05-19] VITALS (24 sets, daily range): BP systolic 97–174; BP diastolic 43–77; PULSE 61–81; RESP 10–21; TEMP 36.6–37.3; O2SAT 94–100; BMI 31.1
[2020-05-19] MEDS: Piperacillin Sodium/Tazobactam 3.375 GM in 0.9 % Sodium Chloride 50 ML IV ×5 (00:02→23:22)
[2020-05-19] MEDS: 0.9 % Sodium Chloride 500 ML IV (01:08)
[2020-05-19] MEDS: Morphine Sulfate 2 MG/ML CARTRIDGE IVPUSH ×5 (04:15→21:22)
[2020-05-19] MEDS: Enoxaparin Sodium 40 MG/0.4 ML SYRINGE SUBCUT (05:57)
[2020-05-19] MEDS: Omeprazole 20 MG CAPSULE.DR PO (05:57)
[2020-05-19 05:58] LABS: MANUAL DIFF FLAG NO
[2020-05-19 06:01] LABS: Basophils Percent Auto 0.4 % (0-2); Eosinophils Percent Auto 0.3 % (0-4); Hemoglobin 7.7 g/dl (12.0-16.0); Imm Gran Abs Auto 0.04 X10*3/uL (0.00-0.03); Imm Gran Pct Auto 0.4 % (0.0-0.4); Lymphocytes Absolute Auto 1.2 X10*3/uL (1.2-4.9); Lymphocytes Percent Auto 11.5 % (20-40); Mean Corpuscular HGB Conc 32.1 g/dl (31.0-35.0); Mean Corpuscular Hemoglobin 29.4 pg (27.0-33.0); Mean Corpuscular Volume 91.6 fL (80-98); Mean Platelet Volume 9.4 fL (9.4-12.3); Monocytes Percent Auto 9.5 % (2-11); Neutrophils Absolute Auto 7.8 X10*3/uL (2.0-8.3); Neutrophils Percent Auto 77.9 % (45-73); Platelet Count 326 X10*3/uL (160-400); Red Blood Count 2.62 X10*6/uL (4.20-5.50); Red Cell Distribution Width 13.3 % (11.0-16.0)
[2020-05-19 06:22] LABS: INTERNATIONAL NORM RATIO 1.5 (0.9-1.1); Prothrombin Time 17.3 SEC (10.8-13.0)
[2020-05-19 06:28] LABS: Anion Gap 10 (12-20); Blood Urea Nitrogen 10 mg/dL (9-16); Calcium 7.3 mg/dL (8.4-10.2); Carbon Dioxide 26 mmol/L (22-29); Chloride 108 mmol/L (96-108); Creatinine Clr Calc Pharmacy 94.8; Estimated Glomerular Filt Rate > 60; Glucose Random 218 mg/dL (60-115); Potassium 3.6 mmol/L (3.3-5.1); Sodium 140 mmol/L (135-145)
[2020-05-19] MEDS: 0.9 % Sodium Chloride 1,000 ML 80 ML IVCONT ×2 (06:31→16:36)
[2020-05-19 07:10] LABS: Glucose, Whole Blood 187 mg/dL (60-115)
[2020-05-19] MEDS: vancomycin HCL 1,000 MG in 0.9 % Sodium Chloride 250 ML 270 MG IV ×2 (08:38→21:10)
[2020-05-19] MEDS: Escitalopram Oxalate 20 MG TABLET PO (08:38)
[2020-05-19] MEDS: Multivitamin TABLET 1 TAB PO (08:38)
[2020-05-19] MEDS: Aspirin Enteric Coated 81 MG TABLET.DR PO (08:38)
[2020-05-19] MEDS: Atorvastatin Calcium 80 MG TABLET PO (08:39)
[2020-05-19] MEDS: Insulin Lispro 100 UNIT/ML 3 ML VIAL SUBCUT ×3 (08:39→21:10)
[2020-05-19] MEDS: Gabapentin 400 MG CAPSULE 800 MG PO ×3 (08:39→21:08)
[2020-05-19] MEDS: Insulin Glargine,Hum.rec.anlog 100 UNIT/ML 10 ML VIAL 7 UNIT SUBCUT (08:40)
[2020-05-19] MEDS: 0.9 % Sodium Chloride Flush 3 ML SYRINGE IVFLUSH ×2 (08:41→16:36)
--- NOTE | 2020-05-19 09:52 | HO.VASCPN ---
Subjective Subjective Date of Service: 05/19/20 Patient reports: no new complaints, feels better and tolerating a regular diet Interval history: 59-year-old female postop day 1 status post fem-pop bypass. Appears to be doing relatively well overnight. Did have some pain control and cramping issues yesterday. Noted to do relatively well overnight did have some periods of hypotension. She is now for postop day 1 follow-up. Physical Exam Vital Signs: Vital Signs: Last Vital Signs Temp 97.9 F 05/19/20 08:00 Pulse 68 05/19/20 09:00 Resp 17 05/19/20 09:00 BP 149/59 H 05/19/20 09:00 Pulse Ox 98 05/19/20 09:00 Body Mass Index 31.1 Const: General: cooperative, healthy appearing and no acute distress Orientation/consciousness: oriented to person, oriented to place and oriented to time HENMT: Head: Yes normal to inspection Neck: Carotids: no bruits Chest: Chest palpation & inspection: normal inspection of the chest Resp: Effort & Inspection: normal respiratory effort and able to speak in complete sentences Auscultation: clear to auscultation bilaterally Cardio: Rate: regular rate Heart sounds: S1 normal heart sound present and S2 normal heart sound present Peripheral pulses: dorsalis pedis present bilateral dopplerable GI: Inspection: Yes normal to inspection Skin: Other: Incision sites dressing minimal staining, thigh compartments are soft. General skin exam: no rashes or lesions noted Neuro: General: oriented to person, oriented to place, oriented to time and CN's II-XI intact bilaterally Extrem: General: Yes normal to inspection, Yes full ROM and Yes no clubbing, cyanosis or edema Psych: Appearance: grossly normal and well kempt Speech and movement: Normal speech and movement present Affect: normal affect Progress Note: A&P Assessment and plan (1) PAD (peripheral artery disease): Status: Acute Assessment and Plan: Patient doing well postop day 1 status post fem-pop bypass. Pain reasonably controlled. H&H is decreased. She will require unit of blood. Will take Somers and A-line at out. Advance her to regular diet. Bed rest for today. Thank you to the crossing gateman for their assistance in this patient's care. Fall Risk Details Current Medications: Current Medications Generic Name Dose Route Start Last Admin Trade Name Freq PRN Reason Stop Dose Admin Acetaminophen 650 mg 05/09/20 05:24 05/16/20 09:11 Acetaminophen 325 Mg Tablet PO 650 mg Q6H PRN Administration Pain, Mild (Pain Scale 1-3) Acetaminophen 650 mg 05/13/20 11:26 Acetaminophen 325 Mg Tablet PO Q6H PRN Pain, Mild (Pain Scale 1-3) Albuterol Sulfate 2.5 mg 05/18/20 08:24 Albuterol Sulfate (0.083%) 2.5 Mg/3 Ml Vial.Neb INHALE ONCE PRN Wheezing Amlodipine Besylate 5 mg 05/16/20 11:15 05/19/20 08:41 Amlodipine Besylate 5 Mg Tablet PO Not Given DAILY [facility] Protocol Aspirin 81 mg 05/09/20 09:00 05/19/20 08:38 Aspirin Enteric Coated 81 Mg Tablet.Dr PO 81 mg DAILY [facility] Administration Atorvastatin Calcium 80 mg 05/09/20 09:00 05/19/20 08:39 Atorvastatin Calcium 80 Mg Tablet PO 80 mg DAILY [facility] Administration Carvedilol 25 mg 05/09/20 09:00 05/19/20 08:41 Carvedilol 25 Mg Tablet PO Not Given BID [facility] Protocol Docusate Sodium 100 mg 05/09/20 05:24 Docusate Sodium 100 Mg Capsule PO DAILY PRN Constipation Enoxaparin Sodium 40 mg 05/09/20 06:00 05/19/20 05:57 Enoxaparin Sodium 40 Mg/0.4 Ml Syringe SUBCUT 40 mg Q24H [facility] Administration Escitalopram Oxalate 20 mg 05/09/20 09:00 05/19/20 08:38 Escitalopram Oxalate 20 Mg Tablet PO 20 mg DAILY [facility] Administration Gabapentin 800 mg 05/09/20 09:00 05/19/20 08:39 Gabapentin 400 Mg Capsule PO 800 mg TID [facility] Administration Piperacillin Sod/Tazobactam 50 mls @ 100 mls/hr 05/09/20 05:24 05/19/20 06:39 Sod 3.375 gm/ Sodium Chloride IV Infused Q6H [facility] Infusion Vancomycin HCl 1,000 mg/ 270 mls @ 270 mls/hr 05/18/20 09:00 05/19/20 09:41 Sodium Chloride IV Infused Q12H [facility]ORY Infusion Sodium Chloride 1,000 mls @ 80 mls/hr 05/18/20 13:15 05/19/20 06:31 Ns IVCONT 80 mls/hr .[id number] [facility] Administration Insulin Glargine 7 unit 05/09/20 09:00 05/19/20 08:40 Insulin Glargine,Hum.Rec.Anlog 100 Unit/Ml 10 Ml Vial SUBCUT 7 unit DAILY [facility] Administration Insulin Human Lispro 0 unit 05/09/20 07:30 05/19/20 08:39 Insulin Lispro 100 Unit/Ml 3 Ml Vial SUBCUT 2 unit QIDACHS [facility] Administration Protocol Lisinopril 40 mg 05/09/20 09:00 05/19/20 08:42 Lisinopril 40 Mg Tablet PO Not Given DAILY [facility] Protocol Mirtazapine 45 mg 05/09/20 21:00 05/18/20 21:29 Mirtazapine 15 Mg Tablet PO 45 mg BEDTIME [facility] Administration Morphine Sulfate 2 mg 05/18/20 13:06 05/19/20 08:43 Morphine Sulfate 2 Mg/Ml Cartridge IVPUSH 2 mg Q4H PRN Administration Pain, Severe (Pain Scale 7-10) Multivitamins/Vitamin C 1 tab 05/09/20 09:00 05/19/20 08:38 Multivitamin Tablet PO 1 tab DAILY [facility] Administration Omeprazole 20 mg 05/09/20 06:30 05/19/20 05:57 Omeprazole 20 Mg Capsule. PO 20 mg DAILY@0630 [facility] Administration Ondansetron HCl 4 mg 05/09/20 05:24 Ondansetron Hcl 4 Mg/2 Ml Vial IVPUSH Q8H PRN Nausea and Vomiting Oxycodone HCl 7.5 mg 05/15/20 08:55 05/17/20 20:32 Oxycodone Hcl Immed Release 5 Mg Tablet PO 7.5 mg Q4H PRN Administration Pain, Moderate (Pain Scale 4-6 Pharmacy Consult 1 each 05/08/20 22:17 Consult Rx Perform Med Rec MISCELLANE ONCE PRN Consult order Sodium Chloride 3 ml 05/09/20 08:00 05/19/20 08:41 0.9 % Sodium Chloride Flush 3 Ml Syringe IVFLUSH 3 ml QSHIFT [facility] Administration Time Spent With Patient Time: Total time spent is greater than 50% in coordination of care (as documented) at patient's floor/unit and/or counseling patient: Time with patient: 15 - 24 minutes
--- NOTE | 2020-05-19 10:57 | MHC.CLN ---
F/U PO INTAKE 50% AVG WITH 1 REFUSAL NOTED DIET RX: 1800DM-APPROPRIATE RE-START GLUCERNA BID AND ESTEBAN TO INCREASE KCALS & SUPPORT WOUND HEALING MONITOR PO INTAKE CLOSELY FOLLOWING
--- NOTE | 2020-05-19 11:17 | PM.CCPN ---
Subjective Subjective Date of Service: 05/19/20 Interval History: 59-year-old female on 1 week of vancomycin and Zosyn because of nonhealing left lower extremity ulcers and questionable osteomyelitis just underwent revascularization with a fem-pop bypass in the OR and overnight did beautifully arterial line discontinued patient is eating her diabetic diet She is a diabetic and hypertensive and I believe smoker with a history of could of coronary disease and significant peripheral vascular disease with significant ischemic symptomatology but doing well postop Hemoglobin of 7.7 is going to receive 1 transfusion unit of red cells today to keep things safe because of her ischemic history and questionable COPD Blood pressures were normal at 117 systolic so her lisinopril amlodipine and Coreg were all held and I figured after receiving her volume if her pressure comes up we can reinstate at the desire dose her medications Physical Exam Vital Signs: Vital Signs: Last Vital Signs Temp 97.9 F 05/19/20 08:00 Pulse 65 05/19/20 10:00 Resp 16 05/19/20 10:00 BP 139/57 L 05/19/20 10:00 Pulse Ox 99 05/19/20 10:00 Body Mass Index 31.1 Const: Other: Awake alert an oriented and nonfocal neurologically Bilateral dopplerable pulses but otherwise warm well perfused Cardiac exam with normal S1 normal S2 no gallops or murmurs Chest is clear bilaterally no adventitious sounds Abdomen benign with good bowel sounds no tenderness no organomegaly Objective Data Labs CBC & Chem 7: 05/19/20 05:45 05/19/20 05:45 Labs: Laboratory Results - last 24 hr 05/18/20 05/18/20 05/18/20 13:57 16:33 20:20 WBC 10.1 RBC 2.84 L D Hgb 8.5 L D Hct 26.0 L D MCV 91.5 MCH 29.9 MCHC 32.7 RDW 13.2 Plt Count 317 MPV 9.3 L Immature Gran % (Auto) 0.3 Neut % (Auto) 86.3 H Lymph % (Auto) 5.7 L [place] % (Auto) 7.5 Eos % (Auto) 0.0 Baso % (Auto) 0.2 Lymph # (Auto) 0.6 L [place] # (Auto) 0.8 Eos # (Auto) 0.0 Baso # (Auto) 0.0 Abs Immat Gran (auto) 0.03 Absolute Neuts (auto) 8.7 H Absolute Nucleated RBC 0.000 Nucleated RBC % (auto) 0.0 Smear Tech's Comments VERIFIED PT INR Sodium Potassium Chloride Carbon Dioxide Anion Gap BUN Creatinine Estim Creat Clear Calc Estimated GFR POC Glucose 175 H 175 H Random Glucose Calcium Blood Type Antibody Screen Crossmatch 05/18/20 05/19/20 05/19/20 20:44 05:45 05:45 WBC 10.0 RBC 2.62 L Hgb 7.7 L Hct 24.0 L MCV 91.6 MCH 29.4 MCHC 32.1 RDW 13.3 Plt Count 326 MPV 9.4 Immature Gran % (Auto) 0.4 Neut % (Auto) 77.9 H Lymph % (Auto) 11.5 L [place] % (Auto) 9.5 Eos % (Auto) 0.3 Baso % (Auto) 0.4 Lymph # (Auto) 1.2 [place] # (Auto) 1.0 Eos # (Auto) 0.0 Baso # (Auto) 0.0 Abs Immat Gran (auto) 0.04 H Absolute Neuts (auto) 7.8 Absolute Nucleated RBC 0.000 Nucleated RBC % (auto) 0.0 Smear Tech's Comments PT 17.3 H D INR 1.5 H Sodium Potassium Chloride Carbon Dioxide Anion Gap BUN Creatinine Estim Creat Clear Calc Estimated GFR POC Glucose 225 H Random Glucose Calcium Blood Type Antibody Screen Crossmatch 05/19/20 05/19/20 05/19/20 05:45 07:02 10:04 WBC RBC Hgb Hct MCV MCH MCHC RDW Plt Count MPV Immature Gran % (Auto) Neut % (Auto) Lymph % (Auto) [place] % (Auto) Eos % (Auto) Baso % (Auto) Lymph # (Auto) [place] # (Auto) Eos # (Auto) Baso # (Auto) Abs Immat Gran (auto) Absolute Neuts (auto) Absolute Nucleated RBC Nucleated RBC % (auto) Smear Tech's Comments PT INR Sodium 140 Potassium 3.6 Chloride 108 Carbon Dioxide 26 Anion Gap 10 L BUN 10 D Creatinine 0.57 Estim Creat Clear Calc 94.8 Estimated GFR > 60 POC Glucose 187 H Random Glucose 218 H Calcium 7.3 L Blood Type O Positive Antibody Screen NEGATIVE Crossmatch See Detail Microbiology Microbiology Results: Microbiology 05/08/20 22:52 Blood - Venous Blood Culture - Final No growth after 5 days. 05/08/20 22:52 Blood - Venous Blood Culture - Final No growth after 5 days. 05/09/20 05:53 Urine clean catch - Clean Catch Midstream Urine Culture - Final Progress Note: A&P Assessment and plan (1) Status post femoral-popliteal bypass surgery: Status: Acute (2) Osteomyelitis: Status: Acute (3) PAD (peripheral artery disease): Status: Acute (4) Diabetic foot ulcer: Status: Acute (5) Infection of toe: Status: Acute (6) Uncontrolled diabetes mellitus: Status: Acute (7) Weight loss, abnormal: Problem details: 40 lbs over past few months Status: Acute (8) NIDDY (non-insulin dependent diabetes mellitus in young): Status: Acute (9) Nausea and vomiting: Status: Acute (10) H. pylori infection: Status: Acute (11) Chest pressure: Status: Acute (12) HTN (hypertension): Status: Acute Assessment and Plan: She did beautifully postoperatively without any chest complaints stable normal sinus rhythm no EKG changes good clinical peripheral circulation and currently can have her arterial line discontinued and will have a 1 unit red cell transfusion for hemoglobin of 7.7 in the face of her underlying comorbidities and then transfer to the floor Time Spent With Patient Time: Total time spent is greater than 50% in coordination of care (as documented) at patient's floor/unit and/or counseling patient: Total time spent with greater than 50% in coordination of care (as documented) at patient's floor/unit and/or counseling patient:: 30
--- NOTE | 2020-05-19 11:19 | PC.NURSE ---
A-line to right radial area removed. Pressure applied for minutes. No abnormal bleeding noted. Occlusive dressing applied to site.
[2020-05-19 11:49] LABS: Glucose, Whole Blood 173 mg/dL (60-115)
--- NOTE | 2020-05-19 14:01 | HO.POSTANES ---
Post Anesthesia Evaluation Post Anesthesia Evaluation Vital Signs: Vital Signs Temp Pulse Resp BP Pulse Ox 05/19/20 13:28 98.1 F 72 20 100/46 L 05/19/20 13:06 98.0 F 67 16 128/58 L 05/19/20 12:43 16 05/19/20 12:00 98 F 67 20 131/60 100 05/19/20 11:00 98 F 05/19/20 10:00 65 16 139/57 L 99 05/19/20 09:00 68 17 149/59 H 98 05/19/20 08:43 13 05/19/20 08:42 66 05/19/20 08:41 66 05/19/20 08:00 97.9 F 63 13 114/46 L 98 05/19/20 07:00 61 21 H 126/49 L 99 05/19/20 06:00 66 10 L 129/54 L 98 05/19/20 05:00 64 18 131/56 L 100 05/19/20 04:00 63 12 146/59 H 100 05/19/20 03:00 62 12 97/43 L 98 Anesthesia: General Endotracheal-GETA Mental Status: Awake Pain Control: Satisfactory Nausea/Vomiting: None Hydration: Adequate Anesthesia-Related Issues: No Anes. Related Issues
--- NOTE | 2020-05-19 14:58 | PM.IDPN ---
Subjective Subjective Date of Service: 05/19/20 Interval History: osteomyelitis left fifth toe she has hypoxia and is on Levophed there are no specific cultures Objective Data Labs CBC & Chem 7: 05/19/20 05:45 05/19/20 05:45 Labs: Laboratory Results - last 24 hr 05/18/20 05/18/20 05/18/20 16:33 20:20 20:44 WBC 10.1 RBC 2.84 L D Hgb 8.5 L D Hct 26.0 L D MCV 91.5 MCH 29.9 MCHC 32.7 RDW 13.2 Plt Count 317 MPV 9.3 L Immature Gran % (Auto) 0.3 Neut % (Auto) 86.3 H Lymph % (Auto) 5.7 L [place] % (Auto) 7.5 Eos % (Auto) 0.0 Baso % (Auto) 0.2 Lymph # (Auto) 0.6 L [place] # (Auto) 0.8 Eos # (Auto) 0.0 Baso # (Auto) 0.0 Abs Immat Gran (auto) 0.03 Absolute Neuts (auto) 8.7 H Absolute Nucleated RBC 0.000 Nucleated RBC % (auto) 0.0 Smear Tech's Comments VERIFIED PT INR Sodium Potassium Chloride Carbon Dioxide Anion Gap BUN Creatinine Estim Creat Clear Calc Estimated GFR POC Glucose 175 H 225 H Random Glucose Calcium Blood Type Antibody Screen Crossmatch 05/19/20 05/19/20 05/19/20 05:45 05:45 05:45 WBC 10.0 RBC 2.62 L Hgb 7.7 L Hct 24.0 L MCV 91.6 MCH 29.4 MCHC 32.1 RDW 13.3 Plt Count 326 MPV 9.4 Immature Gran % (Auto) 0.4 Neut % (Auto) 77.9 H Lymph % (Auto) 11.5 L [place] % (Auto) 9.5 Eos % (Auto) 0.3 Baso % (Auto) 0.4 Lymph # (Auto) 1.2 [place] # (Auto) 1.0 Eos # (Auto) 0.0 Baso # (Auto) 0.0 Abs Immat Gran (auto) 0.04 H Absolute Neuts (auto) 7.8 Absolute Nucleated RBC 0.000 Nucleated RBC % (auto) 0.0 Smear Tech's Comments PT 17.3 H D INR 1.5 H Sodium 140 Potassium 3.6 Chloride 108 Carbon Dioxide 26 Anion Gap 10 L BUN 10 D Creatinine 0.57 Estim Creat Clear Calc 94.8 Estimated GFR > 60 POC Glucose Random Glucose 218 H Calcium 7.3 L Blood Type Antibody Screen Crossmatch 05/19/20 05/19/20 05/19/20 07:02 10:04 11:33 WBC RBC Hgb Hct MCV MCH MCHC RDW Plt Count MPV Immature Gran % (Auto) Neut % (Auto) Lymph % (Auto) [place] % (Auto) Eos % (Auto) Baso % (Auto) Lymph # (Auto) [place] # (Auto) Eos # (Auto) Baso # (Auto) Abs Immat Gran (auto) Absolute Neuts (auto) Absolute Nucleated RBC Nucleated RBC % (auto) Smear Tech's Comments PT INR Sodium Potassium Chloride Carbon Dioxide Anion Gap BUN Creatinine Estim Creat Clear Calc Estimated GFR POC Glucose 187 H 173 H Random Glucose Calcium Blood Type O Positive Antibody Screen NEGATIVE Crossmatch See Detail Microbiology Microbiology Results: Microbiology 05/08/20 22:52 Blood - Venous Blood Culture - Final No growth after 5 days. 05/08/20 22:52 Blood - Venous Blood Culture - Final No growth after 5 days. 05/09/20 05:53 Urine clean catch - Clean Catch Midstream Urine Culture - Final Physical Exam Vital Signs: Vital Signs: Last Vital Signs Temp 98.1 F 05/19/20 13:28 Pulse 72 05/19/20 13:28 Resp 20 05/19/20 13:28 BP 100/46 L 05/19/20 13:28 Pulse Ox 100 05/19/20 12:00 Body Mass Index 31.1 Const: General: cooperative HENMT: Head: Yes normal to inspection Resp: Effort & Inspection: normal respiratory effort Cardio: Rate: regular rate Rhythm: regular rhythm GI: Palpation (GI): Soft to palpation and nontender Skin: General skin exam: no rashes or lesions noted Assessment and Plan Assessment and plan (1) Osteomyelitis: Problem details: No specific organism isolated blood or wound Patient has no MRSA seen and is at risk for renal failure Status: Acute Assessment and Plan: Stop Vancomycin Merem 1 g every 8 hours,on discharge IV Ertapenem for 6 weeks (2) Status post femoral-popliteal bypass surgery: Status: Acute (3) PAD (peripheral artery disease): Status: Acute Time Spent With Patient Time: Total time spent is greater than 50% in coordination of care (as documented) at patient's floor/unit and/or counseling patient: Time with patient: 15 - 24 minutes
[2020-05-19 16:11] LABS: Glucose, Whole Blood 147 mg/dL (60-115)
[2020-05-19 20:18] LABS: Glucose, Whole Blood 205 mg/dL (60-115)
[2020-05-19 20:45] LABS: Vancomycin Trough 14.9 mcg/mL (10.0-20.0)
[2020-05-19] MEDS: Mirtazapine 15 MG TABLET 45 MG PO (21:08)
[2020-05-20] VITALS (11 sets, daily range): BP systolic 158–175; BP diastolic 64–79; PULSE 72–85; RESP 16–20; TEMP 36.4–37.6; O2SAT 92–94
[2020-05-20] MEDS: Morphine Sulfate 2 MG/ML CARTRIDGE IVPUSH ×2 (03:44→23:47)
[2020-05-20] MEDS: 0.9 % Sodium Chloride 1,000 ML 80 ML IVCONT (05:20)
[2020-05-20] MEDS: Piperacillin Sodium/Tazobactam 3.375 GM in 0.9 % Sodium Chloride 50 ML IV (05:20)
[2020-05-20] MEDS: Omeprazole 20 MG CAPSULE.DR PO (05:21)
[2020-05-20] MEDS: Enoxaparin Sodium 40 MG/0.4 ML SYRINGE SUBCUT (05:21)
[2020-05-20 06:55] LABS: Hematocrit 26.4 % (37-47); Hemoglobin 8.7 g/dl (12.0-16.0); Mean Corpuscular Hemoglobin 30.1 pg (27.0-33.0); Mean Corpuscular Volume 91.3 fL (80-98); Mean Platelet Volume 9.6 fL (9.4-12.3); Platelet Count 336 X10*3/uL (160-400); Red Blood Count 2.89 X10*6/uL (4.20-5.50); Red Cell Distribution Width 13.7 % (11.0-16.0); White Blood Count 9.2 X10*3/uL (4.8-10.8)
[2020-05-20 07:16] LABS: Glucose, Whole Blood 139 mg/dL (60-115)
[2020-05-20 07:32] LABS: Anion Gap 11 (12-20); Blood Urea Nitrogen 8 mg/dL (9-16); Calcium 7.2 mg/dL (8.4-10.2); Carbon Dioxide 26 mmol/L (22-29); Chloride 110 mmol/L (96-108); Creatinine Clr Calc Pharmacy 95.2; Estimated Glomerular Filt Rate > 60; Glucose Random 151 mg/dL (60-115); Potassium 3.5 mmol/L (3.3-5.1); Sodium 143 mmol/L (135-145)
[2020-05-20] MEDS: 0.9 % Sodium Chloride Flush 3 ML SYRINGE IVFLUSH ×2 (09:08→15:37)
[2020-05-20] MEDS: amLODIPine Besylate 5 MG TABLET PO (09:09)
[2020-05-20] MEDS: Multivitamin TABLET 1 TAB PO (09:09)
[2020-05-20] MEDS: Escitalopram Oxalate 20 MG TABLET PO (09:09)
[2020-05-20] MEDS: Atorvastatin Calcium 80 MG TABLET PO (09:09)
[2020-05-20] MEDS: Gabapentin 400 MG CAPSULE 800 MG PO ×3 (09:09→20:49)
[2020-05-20] MEDS: Aspirin Enteric Coated 81 MG TABLET.DR PO (09:09)
[2020-05-20] MEDS: Insulin Glargine,Hum.rec.anlog 100 UNIT/ML 10 ML VIAL 7 UNIT SUBCUT (09:10)
--- NOTE | 2020-05-20 09:39 | P.PNVS_ITS ---
Subjective Subjective Date of Service: 05/20/20 Patient reports: no new complaints and still having pain Interval history: Patient seen and examined. No events overnight. Continues to have a fair amount of pain in that left lower extremity in particular thigh. Aster garcia is tolerating a regular diet. State foot it is feel significantly warmer but is swollen. Physical Exam Vital Signs: Vital Signs: Last Vital Signs Temp 97.5 F 05/20/20 07:19 Pulse 72 05/20/20 09:09 Resp 18 05/20/20 07:19 BP 163/72 H 05/20/20 09:09 Pulse Ox 93 05/20/20 07:19 Body Mass Index 31.1 Const: General: cooperative, healthy appearing and no acute distress Orientation/consciousness: oriented to person, oriented to place and oriented to time HENMT: Head: Yes normal to inspection Neck: Carotids: no bruits Chest: Chest palpation & inspection: normal inspection of the chest Resp: Effort & Inspection: normal respiratory effort and able to speak in complete sentences Auscultation: clear to auscultation bilaterally Cardio: Rate: regular rate Heart sounds: S1 normal heart sound present and S2 normal heart sound present Peripheral pulses: dorsalis pedis present (Left side triphasic dorsalis pedis signal) GI: Inspection: Yes normal to inspection Skin: Other: Thigh compartments soft General skin exam: no rashes or lesions noted Wounds: no wounds Neuro: General: oriented to person, oriented to place, oriented to time and CN's II-XI intact bilaterally Extrem: General: Yes normal to inspection, Yes full ROM and Yes no clubbing, cyanosis or edema Psych: Appearance: grossly normal and well kempt Speech and movement: Normal speech and movement present Affect: normal affect Progress Note: A&P Assessment and plan (1) PAD (peripheral artery disease): Status: Acute Assessment and Plan: Patient is doing well status post fem-pop bypass. She was transfused 1 unit of packed red blood yesterday. Her hemoglobin pj appropriately to a 8.7. She appears to be relatively hemodynamically stable. Will plan to get her out of bed today and work with physical therapy. She will continue 0 with antibiotics for her lower extremity ulcer questionable osteomyelitis. She may potentially need rehab placement. Will see how she progresses over the next day or so. Thank you for allowing me to assist in her care. Fall Risk Details Current Medications: Current Medications Generic Name Dose Route Start Last Admin Trade Name Royalq PRN Reason Stop Dose Admin Acetaminophen 650 mg 05/09/20 05:24 05/16/20 09:11 Acetaminophen 325 Mg Tablet PO 650 mg Q6H PRN Administration Pain, Mild (Pain Scale 1-3) Acetaminophen 650 mg 05/13/20 11:26 Acetaminophen 325 Mg Tablet PO Q6H PRN Pain, Mild (Pain Scale 1-3) Albuterol Sulfate 2.5 mg 05/18/20 08:24 Albuterol Sulfate (0.083%) 2.5 Mg/3 Ml Vial.Neb INHALE ONCE PRN Wheezing Amlodipine Besylate 5 mg 05/16/20 11:15 05/20/20 09:09 Amlodipine Besylate 5 Mg Tablet PO 5 mg DAILY JORY Administration Protocol Aspirin 81 mg 05/09/20 09:00 05/20/20 09:09 Aspirin Enteric Coated 81 Mg Tablet. PO 81 mg DAILY JORY Administration Atorvastatin Calcium 80 mg 05/09/20 09:00 05/20/20 09:09 Atorvastatin Calcium 80 Mg Tablet PO 80 mg DAILY JORY Administration Carvedilol 25 mg 05/09/20 09:00 05/19/20 08:41 Carvedilol 25 Mg Tablet PO Not Given BID JORY Protocol Docusate Sodium 100 mg 05/09/20 05:24 Docusate Sodium 100 Mg Capsule PO DAILY PRN Constipation Enoxaparin Sodium 40 mg 05/09/20 06:00 05/20/20 05:21 Enoxaparin Sodium 40 Mg/0.4 Ml Syringe SUBCUT 40 mg Q24H JORY Administration Escitalopram Oxalate 20 mg 05/09/20 09:00 05/20/20 09:09 Escitalopram Oxalate 20 Mg Tablet PO 20 mg DAILY JORY Administration Gabapentin 800 mg 05/09/20 09:00 05/20/20 09:09 Gabapentin 400 Mg Capsule PO 800 mg TID JORY Administration Sodium Chloride 1,000 mls @ 80 mls/hr 05/18/20 13:15 05/20/20 06:00 Ns IVCONT 0 mls/hr .[id number] JORY Infusion Meropenem 1 gm/ Sodium 100 mls @ 100 mls/hr 05/20/20 09:00 05/20/20 09:09 Chloride IV 100 mls/hr Q8H JORY Administration Insulin Glargine 7 unit 05/09/20 09:00 05/20/20 09:10 Insulin Glargine,Hum.Rec.Anlog 100 Unit/Ml 10 Ml Vial SUBCUT 7 unit DAILY JORY Administration Insulin Human Lispro 0 unit 05/09/20 07:30 05/20/20 07:46 Insulin Lispro 100 Unit/Ml 3 Ml Vial SUBCUT Not Given QIDACHS [facility] Protocol Lisinopril 40 mg 05/09/20 09:00 05/19/20 08:42 Lisinopril 40 Mg Tablet PO Not Given DAILY [facility] Protocol Mirtazapine 45 mg 05/09/20 21:00 05/19/20 21:08 Mirtazapine 15 Mg Tablet PO 45 mg BEDTIME JORY Administration Morphine Sulfate 2 mg 05/18/20 13:06 05/20/20 03:44 Morphine Sulfate 2 Mg/Ml Cartridge IVPUSH 2 mg Q4H PRN Administration Pain, Severe (Pain Scale 7-10) Multivitamins/Vitamin C 1 tab 05/09/20 09:00 05/20/20 09:09 Multivitamin Tablet PO 1 tab DAILY JORY Administration Omeprazole 20 mg 05/09/20 06:30 05/20/20 05:21 Omeprazole 20 Mg Capsule. PO 20 mg DAILY@0630 JORY Administration Ondansetron HCl 4 mg 05/09/20 05:24 Ondansetron Hcl 4 Mg/2 Ml Vial IVPUSH Q8H PRN Nausea and Vomiting Pharmacy Consult 1 each 05/08/20 22:17 Consult Rx Perform Med Rec MISCELLANE ONCE PRN Consult order Sodium Chloride 3 ml 05/09/20 08:00 05/20/20 09:08 0.9 % Sodium Chloride Flush 3 Ml Syringe IVFLUSH 3 ml QSHIFT JORY Administration Time Spent With Patient Time: Total time spent is greater than 50% in coordination of care (as documented) at patient's floor/unit and/or counseling patient: Time with patient: 15 - 24 minutes
[2020-05-20 11:16] LABS: Glucose, Whole Blood 189 mg/dL (60-115)
[2020-05-20] MEDS: Insulin Lispro 100 UNIT/ML 3 ML VIAL SUBCUT ×3 (11:48→20:53)
--- NOTE | 2020-05-20 12:34 | MHC.CM.PN ---
Home with VNA for LT IVABT VS SNF is the goal for dc;CM will follow to finalize the dc plan.
--- NOTE | 2020-05-20 15:08 | MHC.CM.PN ---
CM met with Patient and spoke with Daughter/Margret regarding PT's recommendation for STR.Patient/daughter are in agreement to referrals being made to area SNF'. CM will follow for dc planning.
[2020-05-20 16:19] LABS: Glucose, Whole Blood 181 mg/dL (60-115)
--- NOTE | 2020-05-20 16:53 | P.PNIM_ITS ---
Subjective Subjective Date of Service: 05/21/20 Interval History: Nonhealing diabetic left foot ulcer, 5th toe osteomylitis Review of Systems Still has pain and some swelling in the procedure area left leg. Denies any chest pain or shortness of breath or abdominal pain or fever or chills or nausea or vomiting. Denies any urinary complaints. Physical Exam Vital Signs: Vital Signs: Last Vital Signs Temp 99.4 F 05/20/20 15: Pulse 73 05/20/20 15:22 Resp 17 05/20/20 15:22 BP 171/74 H 05/20/20 15:22 Pulse Ox 92 05/20/20 15:22 Body Mass Index 31.1 Physical exam: Patient awake alert appears to be has left leg pain /procedure area. Neck no elevated JVD Lungs : grossly fair air entry , no wheeze or rhonchi Heart: regular rate rhythm, s1s2 heard. Abdomen: soft ,nontender, nd, bs present. Extremities no edema, left 4th and 5th toe superficial ulceration as stable, incision for left fem-pop bypass with no drainage Somers catheter clear urine Neuro patient awake alert to time place and person, speech clear Objective Data Current Medications Generic Name Dose Route Start Last Admin Trade Name Freq PRN Reason Stop Dose Admin Acetaminophen 650 mg 05/09/20 05:24 05/16/20 09:11 Acetaminophen 325 Mg Tablet PO 650 mg Q6H PRN Administration Pain, Mild (Pain Scale 1-3) Acetaminophen 650 mg 05/13/20 11:26 Acetaminophen 325 Mg Tablet PO Q6H PRN Pain, Mild (Pain Scale 1-3) Albuterol Sulfate 2.5 mg 05/18/20 08:24 Albuterol Sulfate (0.083%) 2.5 Mg/3 Ml Vial.Neb INHALE ONCE PRN Wheezing Amlodipine Besylate 5 mg 05/16/20 11:15 05/20/20 09:09 Amlodipine Besylate 5 Mg Tablet PO 5 mg DAILY JORY Administration Protocol Aspirin 81 mg 05/09/20 09:00 05/20/20 09:09 Aspirin Enteric Coated 81 Mg Tablet. PO 81 mg DAILY JORY Administration Atorvastatin Calcium 80 mg 05/09/20 09:00 05/20/20 09:09 Atorvastatin Calcium 80 Mg Tablet PO 80 mg DAILY JORY Administration Carvedilol 25 mg 05/09/20 09:00 05/19/20 08:41 Carvedilol 25 Mg Tablet PO Not Given BID [facility] Protocol Docusate Sodium 100 mg 05/09/20 05:24 Docusate Sodium 100 Mg Capsule PO DAILY PRN Constipation Enoxaparin Sodium 40 mg 05/09/20 06:00 05/20/20 05:21 Enoxaparin Sodium 40 Mg/0.4 Ml Syringe SUBCUT 40 mg Q24H JORY Administration Escitalopram Oxalate 20 mg 05/09/20 09:00 05/20/20 09:09 Escitalopram Oxalate 20 Mg Tablet PO 20 mg DAILY JORY Administration Ferrous Sulfate 324 mg 05/20/20 21:00 Ferrous Sulfate 324 Mg Tablet.Dr PO BID JORY Gabapentin 800 mg 05/09/20 09:00 05/20/20 15:37 Gabapentin 400 Mg Capsule PO 800 mg TID JORY Administration Meropenem 1 gm/ Sodium 100 mls @ 100 mls/hr 05/20/20 09:00 05/20/20 16:47 Chloride IV 100 mls/hr Q8H JORY Administration Insulin Glargine 7 unit 05/09/20 09:00 05/20/20 09:10 Insulin Glargine,Hum.Rec.Anlog 100 Unit/Ml 10 Ml Vial SUBCUT 7 unit DAILY JORY Administration Insulin Human Lispro 0 unit 05/09/20 07:30 05/20/20 16:48 Insulin Lispro 100 Unit/Ml 3 Ml Vial SUBCUT 2 unit QIDACHS [facility] Administration Protocol Lisinopril 40 mg 05/09/20 09:00 05/19/20 08:42 Lisinopril 40 Mg Tablet PO Not Given DAILY [facility] Protocol Metformin HCl 1,000 mg 05/20/20 21:00 Metformin Hcl 1,000 Mg Tablet PO BID [facility] Mirtazapine 45 mg 05/09/20 21:00 05/19/20 21:08 Mirtazapine 15 Mg Tablet PO 45 mg BEDTIME JORY Administration Morphine Sulfate 2 mg 05/18/20 13:06 05/20/20 03:44 Morphine Sulfate 2 Mg/Ml Cartridge IVPUSH 2 mg Q4H PRN Administration Pain, Severe (Pain Scale 7-10) Multivitamins/Vitamin C 1 tab 05/09/20 09:00 05/20/20 09:09 Multivitamin Tablet PO 1 tab DAILY JORY Administration Omeprazole 20 mg 05/09/20 06:30 05/20/20 05:21 Omeprazole 20 Mg Capsule. PO 20 mg DAILY@0630 [facility] Administration Ondansetron HCl 4 mg 05/09/20 05:24 Ondansetron Hcl 4 Mg/2 Ml Vial IVPUSH Q8H PRN Nausea and Vomiting Pharmacy Consult 1 each 05/08/20 22:17 Consult Rx Perform Med Rec MISCELLANE ONCE PRN Consult order Pioglitazone HCl 45 mg 05/21/20 09:00 Pioglitazone Hcl 45 Mg Tablet PO DAILY [facility] Sodium Chloride 3 ml 05/09/20 08:00 05/20/20 15:37 0.9 % Sodium Chloride Flush 3 Ml Syringe IVFLUSH 3 ml QSHIFT [facility] Administration Labs CBC & Chem 7: 05/21/20 05:58 05/20/20 05:35 Microbiology Microbiology Results: Microbiology 05/08/20 22:52 Blood - Venous Blood Culture - Final No growth after 5 days. 05/08/20 22:52 Blood - Venous Blood Culture - Final No growth after 5 days. 05/09/20 05:53 Urine clean catch - Clean Catch Midstream Urine Culture - Final Assessment and Plan (1) Diabetic foot ulcer: Status: Acute Assessment and Plan: 59-year-old female who presents to the hospital with complaints of nonhealing ulcers of her left foot. . Sent by wound clinic. 1. Nonhealing diabetic left foot ulcer: MRI foot suspicious for 5th toe osteomyelitis, intially started on IV vancomycin and Zosyn,patient seen by Dr. Lowery no debridement required, blood culture negative. cont. dry sterile dressing., Case discussed with Dr. Castellanos she recommend switch to iv meropenem-will need 6 weeks of IV ertapenem upon discharge, Patient underwent angiogram 05/13 and underwent left-sided fem-pop bypass by Dr. Aragon -still left leg procedure area pain . picc line added . 2. diabetes mellitus/peripheral neuropathy: fs 130-180 mg /dl - blood sugars stable, continue home insulin and low-dose sliding scale insulin, continue diabetic diet, on Neurontin for peripheral neuropathy. 3. hypertension- blood pressure elevated -continue amlodipine, added Coreg will also add lisinopril as needed. 4. CAD- no chest pain continue aspirin and carvedilol. 5. GERD- continue PPI 6. hyperlipidemia continue Lipitor 7. mood continue Remeron and Lexapro
[2020-05-20] MEDS: lisinopriL 20 MG TABLET PO (17:36)
[2020-05-20 20:39] LABS: Glucose, Whole Blood 171 mg/dL (60-115)
[2020-05-20] MEDS: Mirtazapine 15 MG TABLET 45 MG PO (20:48)
[2020-05-20] MEDS: metFORMIN HCl 1,000 MG TABLET 1000 MG PO (20:49)
[2020-05-20] MEDS: Ferrous Sulfate 324 MG TABLET.DR PO (20:49)
[2020-05-20] MEDS: carvediloL 25 MG TABLET PO (20:49)
[2020-05-21] VITALS (12 sets, daily range): BP systolic 140–179; BP diastolic 63–77; PULSE 68–82; RESP 14–20; TEMP 36.5–37.1; O2SAT 92–94
[2020-05-21] MEDS: 0.9 % Sodium Chloride Flush 3 ML SYRINGE IVFLUSH ×3 (00:18→15:54)
[2020-05-21] MEDS: Enoxaparin Sodium 40 MG/0.4 ML SYRINGE SUBCUT (05:39)
[2020-05-21] MEDS: Omeprazole 20 MG CAPSULE.DR PO (05:39)
[2020-05-21 07:06] LABS: Hematocrit 27.3 % (37-47); Hemoglobin 8.6 g/dl (12.0-16.0)
[2020-05-21 08:13] LABS: Glucose, Whole Blood 128 mg/dL (60-115)
[2020-05-21] MEDS: Pioglitazone HCL 45 MG TABLET PO (09:09)
[2020-05-21] MEDS: Atorvastatin Calcium 80 MG TABLET PO (09:09)
[2020-05-21] MEDS: Ferrous Sulfate 324 MG TABLET.DR PO ×2 (09:09→21:07)
[2020-05-21] MEDS: Aspirin Enteric Coated 81 MG TABLET.DR PO (09:09)
[2020-05-21] MEDS: amLODIPine Besylate 5 MG TABLET PO (09:10)
[2020-05-21] MEDS: carvediloL 25 MG TABLET PO ×2 (09:11→21:07)
[2020-05-21] MEDS: Multivitamin TABLET 1 TAB PO (09:11)
[2020-05-21] MEDS: Escitalopram Oxalate 20 MG TABLET PO (09:11)
[2020-05-21] MEDS: metFORMIN HCl 1,000 MG TABLET 1000 MG PO ×2 (09:11→21:07)
[2020-05-21] MEDS: Gabapentin 400 MG CAPSULE 800 MG PO ×3 (09:11→21:07)
[2020-05-21] MEDS: Insulin Glargine,Hum.rec.anlog 100 UNIT/ML 10 ML VIAL 7 UNIT SUBCUT (09:12)
[2020-05-21 10:55] LABS: Glucose, Whole Blood 174 mg/dL (60-115)
--- NOTE | 2020-05-21 11:07 | HO.VASCPN ---
Subjective Subjective Date of Service: 05/21/20 Patient reports: no new complaints and feels better Interval history: Patient seen and examined. She is status post left fem-pop bypass postop day 3. She appears to be doing relatively well. No significant postoperative issues. Pain is significantly better. Thigh discomfort has improved as well. In addition she has ambulated with physical therapy yesterday. She notes that her leg feels significantly better. Physical Exam Vital Signs: Vital Signs: Last Vital Signs Temp 97.7 F 05/21/20 10:56 Pulse 82 05/21/20 10:56 Resp 18 05/21/20 10:56 BP 140/63 H 05/21/20 10:56 Pulse Ox 93 05/21/20 10:56 Body Mass Index 31.1 Const: General: cooperative, healthy appearing and no acute distress Orientation/consciousness: oriented to person, oriented to place and oriented to time HENMT: Head: Yes normal to inspection Neck: Carotids: no bruits Chest: Chest palpation & inspection: normal inspection of the chest Resp: Effort & Inspection: normal respiratory effort and able to speak in complete sentences Auscultation: clear to auscultation bilaterally Cardio: Rate: regular rate Heart sounds: S1 normal heart sound present and S2 normal heart sound present GI: Inspection: Yes normal to inspection Skin: Other: Incision lines well-healed Wounds: wounds noted (Left legs dry ulceration in 4th and 5th toe along with posterior calf) Neuro: General: oriented to person, oriented to place, oriented to time and CN's II-XI intact bilaterally Extrem: General: Yes normal to inspection, Yes full ROM and Yes no clubbing, cyanosis or edema Psych: Appearance: grossly normal and well kempt Speech and movement: Normal speech and movement present Affect: normal affect Progress Note: A&P Assessment and plan (1) PAD (peripheral artery disease): Status: Acute Assessment and Plan: Patient is status post left fem-pop bypass. She to be stable. Have some left thigh swelling which I believe is mostly post operated. Would continue ambulation as tolerated. Stable from my perspective for discharge. Upon discharge she will need to be on an aspirin. She can follow up with us in approximately 2 weeks time for staple removal. Thank you for allowing us to assist in her care. Fall Risk Details Current Medications: Current Medications Generic Name Dose Route Start Last Admin Trade Name Freq PRN Reason Stop Dose Admin Acetaminophen 650 mg 05/09/20 05:24 05/16/20 09:11 Acetaminophen 325 Mg Tablet PO 650 mg Q6H PRN Administration Pain, Mild (Pain Scale 1-3) Acetaminophen 650 mg 05/13/20 11:26 Acetaminophen 325 Mg Tablet PO Q6H PRN Pain, Mild (Pain Scale 1-3) Albuterol Sulfate 2.5 mg 05/18/20 08:24 Albuterol Sulfate (0.083%) 2.5 Mg/3 Ml Vial.Neb INHALE ONCE PRN Wheezing Amlodipine Besylate 5 mg 05/16/20 11:15 05/21/20 09:10 Amlodipine Besylate 5 Mg Tablet PO 5 mg DAILY JORY Administration Protocol Aspirin 81 mg 05/09/20 09:00 05/21/20 09:09 Aspirin Enteric Coated 81 Mg Tablet. PO 81 mg DAILY JORY Administration Atorvastatin Calcium 80 mg 05/09/20 09:00 05/21/20 09:09 Atorvastatin Calcium 80 Mg Tablet PO 80 mg DAILY JORY Administration Carvedilol 25 mg 05/09/20 09:00 05/21/20 09:11 Carvedilol 25 Mg Tablet PO 25 mg BID JORY Administration Protocol Docusate Sodium 100 mg 05/09/20 05:24 Docusate Sodium 100 Mg Capsule PO DAILY PRN Constipation Enoxaparin Sodium 40 mg 05/09/20 06:00 05/21/20 05:39 Enoxaparin Sodium 40 Mg/0.4 Ml Syringe SUBCUT 40 mg Q24H JORY Administration Escitalopram Oxalate 20 mg 05/09/20 09:00 05/21/20 09:11 Escitalopram Oxalate 20 Mg Tablet PO 20 mg DAILY JORY Administration Ferrous Sulfate 324 mg 05/20/20 21:00 05/21/20 09:09 Ferrous Sulfate 324 Mg Tablet. PO 324 mg BID JORY Administration Gabapentin 800 mg 05/09/20 09:00 05/21/20 09:11 Gabapentin 400 Mg Capsule PO 800 mg TID JORY Administration Meropenem 1 gm/ Sodium 100 mls @ 100 mls/hr 05/20/20 09:00 05/21/20 10:29 Chloride IV Infused Q8H JORY Infusion Insulin Glargine 7 unit 05/09/20 09:00 05/21/20 09:12 Insulin Glargine,Hum.Rec.Anlog 100 Unit/Ml 10 Ml Vial SUBCUT 7 unit DAILY JORY Administration Insulin Human Lispro 0 unit 05/09/20 07:30 05/21/20 08:10 Insulin Lispro 100 Unit/Ml 3 Ml Vial SUBCUT Not Given QIDACHS [facility] Protocol Lisinopril 40 mg 05/09/20 09:00 05/19/20 08:42 Lisinopril 40 Mg Tablet PO Not Given DAILY JORY Protocol Metformin HCl 1,000 mg 05/20/20 21:00 05/21/20 09:11 Metformin Hcl 1,000 Mg Tablet PO 1,000 mg BID JORY Administration Mirtazapine 45 mg 05/09/20 21:00 05/20/20 20:48 Mirtazapine 15 Mg Tablet PO 45 mg BEDTIME JORY Administration Morphine Sulfate 2 mg 05/18/20 13:06 05/20/20 23:47 Morphine Sulfate 2 Mg/Ml Cartridge IVPUSH 2 mg Q4H PRN Administration Pain, Severe (Pain Scale 7-10) Multivitamins/Vitamin C 1 tab 05/09/20 09:00 05/21/20 09:11 Multivitamin Tablet PO 1 tab DAILY JORY Administration Omeprazole 20 mg 05/09/20 06:30 05/21/20 05:39 Omeprazole 20 Mg Capsule. PO 20 mg DAILY@0630 JORY Administration Ondansetron HCl 4 mg 05/09/20 05:24 Ondansetron Hcl 4 Mg/2 Ml Vial IVPUSH Q8H PRN Nausea and Vomiting Pharmacy Consult 1 each 05/08/20 22:17 Consult Rx Perform Med Rec MISCELLANE ONCE PRN Consult order Pioglitazone HCl 45 mg 05/21/20 09:00 05/21/20 09:09 Pioglitazone Hcl 45 Mg Tablet PO 45 mg DAILY JORY Administration Sodium Chloride 3 ml 05/09/20 08:00 05/21/20 09:13 0.9 % Sodium Chloride Flush 3 Ml Syringe IVFLUSH 3 ml QSHIFT JORY Administration Time Spent With Patient Time: Total time spent is greater than 50% in coordination of care (as documented) at patient's floor/unit and/or counseling patient: Time with patient: 15 - 24 minutes
--- NOTE | 2020-05-21 11:29 | PM.DS ---
DS: Providers Provider Date of Service: 05/22/20 Date of admission: 05/09/20 03:00 Primary care physician: Unknown Physician Consults: 05/09/20 05:24 Consult to General Surgery Routine Consulting Provider: Pj Lowery Reason for consultation: diabetic foot wound Has provider been notified: No Consult to Infectious Diseases Routine Consulting Provider: Sasha Castellanos Reason for consultation: diabetic foot ulcer-nonhealing Has provider been notified: No 05/09/20 10:45 Consult to Vascular Surgery Routine Consulting Provider: Caleb Aragon Reason for consultation: Arterial duplex shows lower arterial occulsion. came in fr nonhealing ulcer Has provider been notified: No 05/13/20 11:31 Consult to Cardiology Routine Consulting Provider: Ghanshyam Daniel Reason for consultation: pre-op eval for fem-pop Has provider been notified: No DS: Diagnosis Discharge Diagnosis (1) Diabetic foot ulcer: Status: Acute DS: Medications Discharge Medications Home Medications: Home Medications Medication Instructions Recorded Confirmed metformin 1,000 mg PO BID 12/22/19 05/09/20 aspirin 81 mg tablet,delayed 81 mg PO DAILY 01/02/20 05/09/20 release atorvastatin 80 mg tablet 80 mg PO DAILY 01/02/20 05/09/20 carvedilol 25 mg tablet 25 mg PO BID 01/02/20 05/09/20 escitalopram oxalate 20 mg tablet 20 mg PO DAILY 01/02/20 05/09/20 ferrous sulfate 325 mg (65 mg 325 mg PO BID 01/02/20 05/09/20 iron) tablet gabapentin 800 mg tablet 800 mg PO TID 01/02/20 05/09/20 insulin degludec 100 unit/mL (3 10 unit SUBCUT DAILY 01/02/20 05/09/20 mL) subcutaneous pen insulin lispro 100 unit/mL 2 sliding scale dose SUBCUT 01/02/20 05/09/20 subcutaneous cartridge USEASDIRECTD lisinopril 40 mg tablet 40 mg PO DAILY 01/02/20 05/09/20 mirtazapine 45 mg tablet 45 mg PO DAILY 01/02/20 05/09/20 multivitamin 1 tab PO DAILY 01/02/20 05/09/20 oxycodone 5 mg capsule 5 mg PO NEEDED PRN 01/02/20 05/09/20 pioglitazone 45 mg tablet 45 mg PO DAILY 01/02/20 05/09/20 pantoprazole 40 mg tablet,delayed 40 mg PO DAILY tab 03/03/20 05/09/20 release Previous Rx's Medication Instructions Recorded cephalexin [Keflex] 500 mg PO Q6H 10 Days #40 cap 03/09/20 DS: Summary Hospital Course Hospital Course: HPI: 59-year-old female with past medical history of DM, CAD, HTN, asthma, arthritis, who presents to the hospital with complaints of left foot toe ulcers as well as nonhealing ulcer in her calf. . Was seen in wound clinic today and and she was asked to come to the ED as her wounds are not healing. Patient is also stating that she has painful ulcers in the last 2 digits of her left foot, painful 10/10, swollen, red, and warm, was draining clear liquid, she reports that she is currently on antibiotics with no improvement of her symptoms. No headache, no change in vision, no chest pain, no shortness of breath, no abdominal pain nausea or vomiting, no diarrhea constipation. No weakness numbness or tingling. On arrival to the ED vitals are significant for temp of 98.7?, heart rate of 103, blood pressure of 185/82, respiratory rate of 20, satting 98% on room air. Labs are significant for WBC count of 8.6, hemoglobin of 13.3, sodium of 137, potassium 4.2, labs are otherwise unremarkable. COVID-19 negative, foot x-ray shows no evidence of osteomyelitis. Hospital Course problem mays section: Nonhealing diabetic foot ulcer-had MRIs showed osteomyelitis 5th toe. Patient was initially started on IV vancomycin and Zosyn-subsequently was switched to ertapenem upon discharge. Patient is to complete 6 weeks of ertapenem, and it will be 06/30/20. cont. dry sterile dressing. Patient underwent angiogram and subsequently left sided femoral pop bypass by Dr. Aragon , leg area is still somewhat sore but seems improving. Patient will need rehab. Somers catheter was placed during the above procedure which needs to be given voiding trial in rehab. Anemia probably postop(seems blood loss probable with procedure) : Received 1 PRBC and hematocrit is stable(8.6/27.3) range. added iron , moniter cbc closely , further workup and management outpatiently Patient will need CBC, BMP, LFTs Q weekly since is on antibiotics. Please consider doing 1st blood draw on coming Monday. Above management discussed with the patient in detail length she understand and in agreement with the above plan, time spent 50 minutes and 50% time spent on counseling. Significant findings: As above. Procedures performed: None. Treatment and response: As above. Complications: None. Time Spent with Patient Time attestation: Total time spent providing and/or coordinating discharge services: Discharge coordination time: Greater than 30 minutes Physical Exam Vital Signs: Vital Signs: Last Vital Signs Temp 97.7 F 05/21/20 10:56 Pulse 82 05/21/20 10:56 Resp 18 05/21/20 10:56 BP 140/63 H 05/21/20 10:56 Pulse Ox 93 05/21/20 10:56 Body Mass Index 31.1 Physical exam: Patient awake alert appears to be has left leg pain /procedure area. Neck no elevated JVD Lungs : grossly fair air entry , no wheeze or rhonchi Heart: regular rate rhythm, s1s2 heard. Abdomen: soft ,nontender, nd, bs present. Extremities no edema, left 4th and 5th toe superficial ulceration as stable, incision for left fem-pop bypass with no drainage Somers catheter clear urine Neuro patient awake alert to time place and person, speech clear. DS: Data Data Completed and Pending Completed studies during hospitalization [Text1]: Pending at discharge 05/18/20 11:01 Surgical [PTH] Routine Labs on day of discharge: Laboratory Results - last 24 hr 05/20/20 05/20/20 05/21/20 16:04 20:12 05:58 Hgb 8.6 L Hct 27.3 L POC Glucose 181 H 171 H 05/21/20 05/21/20 08:09 10:51 Hgb Hct POC Glucose 128 H 174 H Discharge Plan Discharge Patient Disposition: [facility] Referrals: [facility] [Outside] Physician,Unknown [Primary Care Provider] - Discharge Medications: New omeprazole 20 mg capsule,delayed release(DR/EC) 20 mg PO DAILY Qty: 30 RF: 0 ertapenem 1 gram recon soln 1 g IM DAILY Qty: 40 RF: 0 ferrous sulfate 325 mg (65 mg iron) tablet,delayed release (DR/EC) 325 mg PO BID Qty: 60 RF: 0 Continued metformin 1,000 mg Tablet 1,000 mg PO BID RF: 0 carvedilol [Coreg] 25 mg tablet 25 mg PO BID RF: 0 multivitamin Tablet 1 tab PO DAILY RF: 0 lisinopril 40 mg tablet 40 mg PO DAILY RF: 0 gabapentin 800 mg tablet 800 mg PO TID RF: 0 aspirin [Adult Low Dose Aspirin] 81 mg tablet,delayed release (DR/EC) 81 mg PO DAILY RF: 0 ferrous sulfate 325 mg (65 mg iron) tablet 325 mg PO BID RF: 0 pioglitazone [Actos] 45 mg tablet 45 mg PO DAILY RF: 0 escitalopram oxalate [Lexapro] 20 mg tablet 20 mg PO DAILY RF: 0 mirtazapine 45 mg tablet 45 mg PO DAILY RF: 0 atorvastatin [Lipitor] 80 mg tablet 80 mg PO DAILY RF: 0 Tresiba FlexTouch U-100 100 unit/mL (3 mL) insulin pen 10 unit subcut DAILY RF: 0 Humalog U-100 Insulin 100 unit/mL cartridge 2 sliding scale dose subcut USEASDIRECTD RF: 0 oxycodone 5 mg capsule 5 mg PO NEEDED PRN (Reason: Pain) RF: 0 pantoprazole [Protonix] 40 mg tablet,delayed release (DR/EC) 40 mg PO DAILY RF: 0 Discontinued cephalexin [Keflex] 500 mg capsule 500 mg PO Q6H 10 Days Qty: 40 RF: 0 Discharge Orders: Discharge Order (Routine); Ordered 05/21/20 Ordered By: Rachel Silver Diet: advance to usual diet and diabetic diet Activity on Discharge: As tolerated Stand Alone Forms: Patient Portal Discharge page Care Plan Goals: Nonhealing diabetic foot ulcer-had MRIs showed osteomyelitis 5th toe. Patient was initially started on IV vancomycin and Zosyn-subsequently was switched to ertapenem upon discharge. Patient is to complete 6 weeks of ertapenem, and it will be 06/30/20. cont. dry sterile dressing. Patient underwent angiogram and subsequently left sided femoral pop bypass by Dr. Aragon , leg area is still somewhat sore but seems improving. Patient will need rehab. Anemia probably postop: Received 1 PRBC and hematocrit is stable(8.6/27.3) range. Patient will need CBC, BMP, LFTs Q weekly since is on antibiotics. Please consider doing 1st blood draw on coming Monday. Health Concerns: As above. Plan of Treatment: As above. Assessment: As above.
[2020-05-21] MEDS: Morphine Sulfate 2 MG/ML CARTRIDGE IVPUSH ×3 (12:09→21:06)
[2020-05-21] MEDS: Insulin Lispro 100 UNIT/ML 3 ML VIAL SUBCUT ×3 (12:09→21:06)
[2020-05-21 13:57] LABS: COVID-19 Test Negative (Negative); IDNOW Serial# 9DD0AD1C
--- NOTE | 2020-05-21 15:28 | P.PNIM_ITS ---
Subjective Subjective Date of Service: 05/21/20 Interval History: Nonhealing diabetic left foot ulcer, 5th toe osteomylitis Review of Systems Patient denies any chest pain or shortness of breath or abdominal pain or fever chills Denies any cough or phlegm or palpitation. Physical Exam Vital Signs: Vital Signs: Last Vital Signs Temp 97.7 F 05/21/20 10:56 Pulse 82 05/21/20 10:56 Resp 18 05/21/20 10:56 BP 140/63 H 05/21/20 10:56 Pulse Ox 93 05/21/20 10:56 Body Mass Index 31.1 Patient awake alert appears to be has left leg pain /procedure area. Neck no elevated JVD Lungs : grossly fair air entry , no wheeze or rhonchii Heart: regular rate rhythm, s1s2 heard. Abdomen: soft ,nontender, nd, bs present. Extremities no edema, left 4th and 5th toe superficial ulceration as stable, incision for left fem-pop bypass with no drainage Somers catheter clear urine Neuro patient awake alert to time place and person, speech clear Objective Data Current Medications Generic Name Dose Route Start Last Admin Trade Name Freq PRN Reason Stop Dose Admin Acetaminophen 650 mg 05/09/20 05:24 05/16/20 09:11 Acetaminophen 325 Mg Tablet PO 650 mg Q6H PRN Administration Pain, Mild (Pain Scale 1-3) Acetaminophen 650 mg 05/13/20 11:26 Acetaminophen 325 Mg Tablet PO Q6H PRN Pain, Mild (Pain Scale 1-3) Albuterol Sulfate 2.5 mg 05/18/20 08:24 Albuterol Sulfate (0.083%) 2.5 Mg/3 Ml Vial.Neb INHALE ONCE PRN Wheezing Amlodipine Besylate 5 mg 05/16/20 11:15 05/21/20 09:10 Amlodipine Besylate 5 Mg Tablet PO 5 mg DAILY JORY Administration Protocol Aspirin 81 mg 05/09/20 09:00 05/21/20 09:09 Aspirin Enteric Coated 81 Mg Tablet. PO 81 mg DAILY JORY Administration Atorvastatin Calcium 80 mg 05/09/20 09:00 05/21/20 09:09 Atorvastatin Calcium 80 Mg Tablet PO 80 mg DAILY JORY Administration Carvedilol 25 mg 05/09/20 09:00 05/21/20 09:11 Carvedilol 25 Mg Tablet PO 25 mg BID JORY Administration Protocol Docusate Sodium 100 mg 05/09/20 05:24 Docusate Sodium 100 Mg Capsule PO DAILY PRN Constipation Enoxaparin Sodium 40 mg 05/09/20 06:00 05/21/20 05:39 Enoxaparin Sodium 40 Mg/0.4 Ml Syringe SUBCUT 40 mg Q24H JORY Administration Escitalopram Oxalate 20 mg 05/09/20 09:00 05/21/20 09:11 Escitalopram Oxalate 20 Mg Tablet PO 20 mg DAILY JORY Administration Ferrous Sulfate 324 mg 05/20/20 21:00 05/21/20 09:09 Ferrous Sulfate 324 Mg Tablet. PO 324 mg BID JORY Administration Gabapentin 800 mg 05/09/20 09:00 05/21/20 09:11 Gabapentin 400 Mg Capsule PO 800 mg TID JORY Administration Meropenem 1 gm/ Sodium 100 mls @ 100 mls/hr 05/20/20 09:00 05/21/20 10:29 Chloride IV Infused Q8H JORY Infusion Insulin Glargine 7 unit 05/09/20 09:00 05/21/20 09:12 Insulin Glargine,Hum.Rec.Anlog 100 Unit/Ml 10 Ml Vial SUBCUT 7 unit DAILY JORY Administration Insulin Human Lispro 0 unit 05/09/20 07:30 05/21/20 12:09 Insulin Lispro 100 Unit/Ml 3 Ml Vial SUBCUT 2 unit QIDACHS [facility] Administration Protocol Lisinopril 40 mg 05/09/20 09:00 05/19/20 08:42 Lisinopril 40 Mg Tablet PO Not Given DAILY [facility] Protocol Metformin HCl 1,000 mg 05/20/20 21:00 05/21/20 09:11 Metformin Hcl 1,000 Mg Tablet PO 1,000 mg BID JORY Administration Mirtazapine 45 mg 05/09/20 21:00 05/20/20 20:48 Mirtazapine 15 Mg Tablet PO 45 mg BEDTIME JORY Administration Morphine Sulfate 2 mg 05/18/20 13:06 05/21/20 12:09 Morphine Sulfate 2 Mg/Ml Cartridge IVPUSH 2 mg Q4H PRN Administration Pain, Severe (Pain Scale 7-10) Multivitamins/Vitamin C 1 tab 05/09/20 09:00 05/21/20 09:11 Multivitamin Tablet PO 1 tab DAILY JORY Administration Omeprazole 20 mg 05/09/20 06:30 05/21/20 05:39 Omeprazole 20 Mg Capsule. PO 20 mg DAILY@0630 JORY Administration Ondansetron HCl 4 mg 05/09/20 05:24 Ondansetron Hcl 4 Mg/2 Ml Vial IVPUSH Q8H PRN Nausea and Vomiting Pharmacy Consult 1 each 05/08/20 22:17 Consult Rx Perform Med Rec MISCELLANE ONCE PRN Consult order Pioglitazone HCl 45 mg 05/21/20 09:00 05/21/20 09:09 Pioglitazone Hcl 45 Mg Tablet PO 45 mg DAILY JORY Administration Sodium Chloride 3 ml 05/09/20 08:00 05/21/20 09:13 0.9 % Sodium Chloride Flush 3 Ml Syringe IVFLUSH 3 ml QSHIFT JORY Administration Labs CBC & Chem 7: 05/21/20 05:58 05/20/20 05:35 Microbiology Microbiology Results: Microbiology 05/08/20 22:52 Blood - Venous Blood Culture - Final No growth after 5 days. 05/08/20 22:52 Blood - Venous Blood Culture - Final No growth after 5 days. 05/09/20 05:53 Urine clean catch - Clean Catch Midstream Urine Culture - Final Assessment and Plan (1) Diabetic foot ulcer: Status: Acute Assessment and Plan: 59-year-old female who presents to the hospital with complaints of nonhealing ulcers of her left foot. . Sent by wound clinic. 1. Nonhealing diabetic left foot ulcer: MRI foot suspicious for 5th toe osteomyelitis, intially started on IV vancomycin and Zosyn,patient seen by Dr. Lowery no debridement required, blood culture negative. cont. dry sterile dressing., Case discussed with Dr. Castellanos she recommend switch to iv meropenem-will need 6 weeks of IV ertapenem upon discharge, Patient underwent angiogram 05/13 and underwent left-sided fem-pop bypass by Dr. Aragon -still left leg procedure area pain . picc line added . 2. diabetes mellitus/peripheral neuropathy: fs 130-170 mg /dl - blood sugars stable, continue home insulin and low-dose sliding scale insulin, continue diabetic diet, on Neurontin for peripheral neuropathy. 3. hypertension- blood pressure elevated -continue amlodipine, added Coreg will also add lisinopril as needed. 4. CAD- no chest pain continue aspirin and carvedilol. 5. GERD- continue PPI 6. hyperlipidemia continue Lipitor 7. mood continue Remeron and Lexapro. awaiting placement.
--- NOTE | 2020-05-21 15:58 | P.PICC_ITS ---
PICC Line Insertion NPICC Diagnosis: OSTEOMYELITIS Indication: CUSTODIAL IV ANTIBIOTICS Pertinent Labs: REVIEWED Technique: Following informed consent including risks, benefits and alternatives and using sterile technique including cap and mask, sterile gown, glove and drape, the [RIGHT] arm was prepped and draped in the usual sterile fashion of full barrier technique with G. Following completion of [place] Protocol the skin and soft tissues were anesthetized with 1% Lidocaine plain. Using ultrasound guidance, [BASILIC] vein access was obtained IN SINGLE ATTEMPT BY THIS RN. Over an 0.018 wire through peel-away sheath, a [SINGLE LUMEN, PASV, 4- ERITREAN] PICC line was positioned. Catheter length is [35 CM] internal length, [0 CM] external length, for a total trimmed length of [35 CM]. The procedure was performed in [S272]. Tip verification was performed by Mariusz Eldridge with [employer] 3CG. Tip located in SVC. Ultrasound was used to document vein patency and for needle entry. A formal ultrasound picture and cardiac rhythm strip was recorded. [employer] has released the line for use and it is currently dressed with a StatLock, Tegaderm, and CHG disc. Verification has been performed for blood return and line patency. Arm Circumference: 32.5 CM Equipment: [employer] POWER PICC SOLO Catheter Type: 4 ERITREAN, SINGLE LUMEN, PASV Lot #: [id number]
[2020-05-21 16:04] LABS: Glucose, Whole Blood 213 mg/dL (60-115)
[2020-05-21] MEDS: 0.9 % Sodium Chloride Flush 10 ML SYRINGE 5 ML IVFLUSH ×2 (16:27→21:06)
[2020-05-21 20:05] LABS: Glucose, Whole Blood 186 mg/dL (60-115)
[2020-05-21] MEDS: Mirtazapine 15 MG TABLET 45 MG PO (21:07)
[2020-05-22] VITALS (9 sets, daily range): BP systolic 150–186; BP diastolic 65–80; PULSE 69–79; RESP 16–18; TEMP 36.1–36.9; O2SAT 94–96; BMI 31.4
[2020-05-22] MEDS: Enoxaparin Sodium 40 MG/0.4 ML SYRINGE SUBCUT (06:47)
[2020-05-22] MEDS: Omeprazole 20 MG CAPSULE.DR PO (06:48)
[2020-05-22 07:43] LABS: Glucose, Whole Blood 116 mg/dL (60-115)
[2020-05-22] MEDS: metFORMIN HCl 1,000 MG TABLET 1000 MG PO ×2 (08:22→19:33)
[2020-05-22] MEDS: Insulin Glargine,Hum.rec.anlog 100 UNIT/ML 10 ML VIAL 7 UNIT SUBCUT (08:22)
[2020-05-22] MEDS: Multivitamin TABLET 1 TAB PO (08:22)
[2020-05-22] MEDS: carvediloL 25 MG TABLET PO ×2 (08:22→19:33)
[2020-05-22] MEDS: Gabapentin 400 MG CAPSULE 800 MG PO ×3 (08:22→19:33)
[2020-05-22] MEDS: Atorvastatin Calcium 80 MG TABLET PO (08:23)
[2020-05-22] MEDS: Aspirin Enteric Coated 81 MG TABLET.DR PO (08:23)
[2020-05-22] MEDS: 0.9 % Sodium Chloride Flush 10 ML SYRINGE 5 ML IVFLUSH ×3 (08:23→19:35)
[2020-05-22] MEDS: amLODIPine Besylate 5 MG TABLET PO (08:23)
[2020-05-22] MEDS: Escitalopram Oxalate 20 MG TABLET PO (08:23)
[2020-05-22] MEDS: Pioglitazone HCL 45 MG TABLET PO (08:23)
[2020-05-22] MEDS: Ferrous Sulfate 324 MG TABLET.DR PO ×2 (08:23→19:33)
[2020-05-22 11:18] LABS: Glucose, Whole Blood 165 mg/dL (60-115)
[2020-05-22] MEDS: Insulin Lispro 100 UNIT/ML 3 ML VIAL SUBCUT (11:58)
--- NOTE | 2020-05-22 12:09 | MHC.CM.PN ---
Patient has been medically cleared for dc to SNF/STR today. Patient will dc to her first choice SNF- [facility] today at 5 PM, via [facility]. Patient and Daughter/Iviwonaese are aware of and in agreement with the dc plan. MDS has been faxed to [facility]. Patient completed a HCP today.
--- NOTE | 2020-05-22 12:32 | MHC.CLN ---
F/U PO INTAKE VARIABLE DIET RX: 1800DM-APPROPRIATE PT RECEIVING GLUCERNA BID AND ESTEBAN TO INCREASE KCALS & SUPPORT WOUND HEALING SUPPLEMENTS PROVIDE 634KCALS, 25G PROTEIN MONITOR PO INTAKE CLOSELY FOLLOWING
--- NOTE | 2020-05-22 15:31 | MHC.CM.PN ---
Scheduled dc for today has been cancelled d/t new onset Diarrhea & abdominal pain; CM will follow for dc readiness/planning.
[2020-05-22 16:16] LABS: Glucose, Whole Blood 118 mg/dL (60-115)
[2020-05-22] MEDS: Morphine Sulfate 2 MG/ML CARTRIDGE IVPUSH ×2 (16:42→20:43)
--- NOTE | 2020-05-22 19:05 | P.PNIM_ITS ---
Subjective Subjective Date of Service: 05/22/20 Interval History: Nonhealing diabetic left foot ulcer, 5th toe osteomylitis, abd pain/diarrahae. Review of Systems Patient planned to go to rehab but started to have diarrhea, also says abdom inal pain. evening time abd pains seems to be improving patient denies any chest pain or shortness of breath or fever or chills. no weakness or numbness. Physical Exam Vital Signs: Vital Signs: Last Vital Signs Temp 97.9 F 05/22/20 18:58 Pulse 75 05/22/20 18:58 Resp 18 05/22/20 18:58 BP 174/77 H 05/22/20 18:58 Pulse Ox 96 05/22/20 18:58 Body Mass Index 31.4 Physical exam: Patient awake alert appears to be has left leg pain /procedure area. Neck no elevated JVD Lungs : grossly fair air entry , no wheeze or rhonchii Heart: regular rate rhythm, s1s2 heard. Abdomen: soft ,nontender, nd, bs present. Extremities no edema, left 4th and 5th toe superficial ulceration as stable, incision for left fem-pop bypass with no drainage Somers catheter clear urine Neuro patient awake alert to time place and person, speech clear Objective Data Current Medications Generic Name Dose Route Start Last Admin Trade Name Freq PRN Reason Stop Dose Admin Acetaminophen 650 mg 05/09/20 05:24 05/16/20 09:11 Acetaminophen 325 Mg Tablet PO 650 mg Q6H PRN Administration Pain, Mild (Pain Scale 1-3) Acetaminophen 650 mg 05/13/20 11:26 Acetaminophen 325 Mg Tablet PO Q6H PRN Pain, Mild (Pain Scale 1-3) Albuterol Sulfate 2.5 mg 05/18/20 08:24 Albuterol Sulfate (0.083%) 2.5 Mg/3 Ml Vial.Neb INHALE ONCE PRN Wheezing Amlodipine Besylate 5 mg 05/16/20 11:15 05/22/20 08:23 Amlodipine Besylate 5 Mg Tablet PO 5 mg DAILY JORY Administration Protocol Aspirin 81 mg 05/09/20 09:00 05/22/20 08:23 Aspirin Enteric Coated 81 Mg Tablet. PO 81 mg DAILY JORY Administration Atorvastatin Calcium 80 mg 05/09/20 09:00 05/22/20 08:23 Atorvastatin Calcium 80 Mg Tablet PO 80 mg DAILY JORY Administration Carvedilol 25 mg 05/09/20 09:00 05/22/20 08:22 Carvedilol 25 Mg Tablet PO 25 mg BID JORY Administration Protocol Docusate Sodium 100 mg 05/09/20 05:24 Docusate Sodium 100 Mg Capsule PO DAILY PRN Constipation Enoxaparin Sodium 40 mg 05/09/20 06:00 05/22/20 06:47 Enoxaparin Sodium 40 Mg/0.4 Ml Syringe SUBCUT 40 mg Q24H JORY Administration Escitalopram Oxalate 20 mg 05/09/20 09:00 05/22/20 08:23 Escitalopram Oxalate 20 Mg Tablet PO 20 mg DAILY JORY Administration Ferrous Sulfate 324 mg 05/20/20 21:00 05/22/20 08:23 Ferrous Sulfate 324 Mg Tablet.Dr PO 324 mg BID JORY Administration Gabapentin 800 mg 05/09/20 09:00 05/22/20 15:09 Gabapentin 400 Mg Capsule PO 800 mg TID JROY Administration Meropenem 1 gm/ Sodium 100 mls @ 100 mls/hr 05/20/20 09:00 05/22/20 17:58 Chloride IV Infused Q8H JORY Infusion Insulin Glargine 7 unit 05/09/20 09:00 05/22/20 08:22 Insulin Glargine,Hum.Rec.Anlog 100 Unit/Ml 10 Ml Vial SUBCUT 7 unit DAILY [facility] Administration Insulin Human Lispro 0 unit 05/09/20 07:30 05/22/20 16:23 Insulin Lispro 100 Unit/Ml 3 Ml Vial SUBCUT Not Given QIDACHS [facility] Protocol Lisinopril 40 mg 05/09/20 09:00 05/19/20 08:42 Lisinopril 40 Mg Tablet PO Not Given DAILY [facility] Protocol Metformin HCl 1,000 mg 05/20/20 21:00 05/22/20 08:22 Metformin Hcl 1,000 Mg Tablet PO 1,000 mg BID JORY Administration Mirtazapine 45 mg 05/09/20 21:00 05/21/20 21:07 Mirtazapine 15 Mg Tablet PO 45 mg BEDTIME JORY Administration Morphine Sulfate 2 mg 05/18/20 13:06 05/22/20 16:42 Morphine Sulfate 2 Mg/Ml Cartridge IVPUSH 2 mg Q4H PRN Administration Pain, Severe (Pain Scale 7-10) Multivitamins/Vitamin C 1 tab 05/09/20 09:00 05/22/20 08:22 Multivitamin Tablet PO 1 tab DAILY JORY Administration Omeprazole 20 mg 05/09/20 06:30 05/22/20 06:48 Omeprazole 20 Mg Capsule. PO 20 mg DAILY@0630 JORY Administration Ondansetron HCl 4 mg 05/09/20 05:24 Ondansetron Hcl 4 Mg/2 Ml Vial IVPUSH Q8H PRN Nausea and Vomiting Pharmacy Consult 1 each 05/08/20 22:17 Consult Rx Perform Med Rec MISCELLANE ONCE PRN Consult order Pioglitazone HCl 45 mg 05/21/20 09:00 05/22/20 08:23 Pioglitazone Hcl 45 Mg Tablet PO 45 mg DAILY JORY Administration Sodium Chloride 5 ml 05/21/20 16:00 05/22/20 15:09 0.9 % Sodium Chloride Flush 10 Ml Syringe IVFLUSH 5 ml TID JORY Administration Labs CBC & Chem 7: 05/21/20 05:58 05/20/20 05:35 Microbiology Microbiology Results: Microbiology 05/08/20 22:52 Blood - Venous Blood Culture - Final No growth after 5 days. 05/08/20 22:52 Blood - Venous Blood Culture - Final No growth after 5 days. 05/09/20 05:53 Urine clean catch - Clean Catch Midstream Urine Culture - Final Assessment and Plan (1) Diabetic foot ulcer: Status: Acute Assessment and Plan: 59-year-old female who presents to the hospital with complaints of nonhealing ulcers of her left foot. . Sent by wound clinic. 1. Nonhealing diabetic left foot ulcer: MRI foot suspicious for 5th toe osteomyelitis, intially started on IV vancomycin and Zosyn,patient seen by Dr. Lowery no debridement required, blood culture negative. cont. dry sterile dressing., Case discussed with Dr. Castellanos she recommend switch to iv meropenem-will need 6 weeks of IV ertapenem upon discharge, Patient underwent angiogram 05/13 and underwent left-sided fem-pop bypass by Dr. Aragon -still left leg procedure area pain . picc line added . 2. diabetes mellitus/peripheral neuropathy: fs 120-160 mg /dl - blood sugars stable, continue home insulin and low-dose sliding scale insulin, continue diabetic diet, on Neurontin for peripheral neuropathy. 3. hypertension- blood pressure elevated -continue amlodipine, added Coreg will also add lisinopril as needed. 4. CAD- no chest pain continue aspirin and carvedilol. 5. GERD- continue PPI 6. hyperlipidemia continue Lipitor 7. mood continue Remeron and Lexapro. awaiting placement. 8 diarrahe episodes : Abdominal pain improving Will add stool for C diff and stool for WBC, stool culture monitor closely (2) Uncontrolled diabetes mellitus: Status: Acute
[2020-05-22] MEDS: Mirtazapine 15 MG TABLET 45 MG PO (19:34)
[2020-05-22 19:38] LABS: Glucose, Whole Blood 124 mg/dL (60-115)
[2020-05-23] VITALS (8 sets, daily range): BP systolic 124–196; BP diastolic 72–89; PULSE 69–80; RESP 17–18; TEMP 36.4–37.7; O2SAT 71–98
[2020-05-23] MEDS: Morphine Sulfate 2 MG/ML CARTRIDGE IVPUSH ×2 (04:53→12:08)
[2020-05-23] MEDS: Enoxaparin Sodium 40 MG/0.4 ML SYRINGE SUBCUT (04:53)
[2020-05-23] MEDS: Omeprazole 20 MG CAPSULE.DR PO (04:53)
[2020-05-23 07:09] LABS: Hematocrit 26.5 % (37-47); Hemoglobin 8.6 g/dl (12.0-16.0); Mean Corpuscular HGB Conc 32.5 g/dl (31.0-35.0); Mean Corpuscular Hemoglobin 30.1 pg (27.0-33.0); Mean Corpuscular Volume 92.7 fL (80-98); Mean Platelet Volume 9.2 fL (9.4-12.3); Platelet Count 392 X10*3/uL (160-400); Red Blood Count 2.86 X10*6/uL (4.20-5.50); White Blood Count 8.8 X10*3/uL (4.8-10.8)
[2020-05-23 07:36] LABS: Glucose, Whole Blood 94 mg/dL (60-115)
[2020-05-23 07:40] LABS: Anion Gap 15 (12-20); Blood Urea Nitrogen 5 mg/dL (9-16); Calcium 7.5 mg/dL (8.4-10.2); Carbon Dioxide 23 mmol/L (22-29); Chloride 108 mmol/L (96-108); Creatinine Clr Calc Pharmacy 120.8; Estimated Glomerular Filt Rate > 60; Glucose Random 86 mg/dL (60-115); Potassium 3.6 mmol/L (3.3-5.1); Sodium 142 mmol/L (135-145)
[2020-05-23] MEDS: Insulin Glargine,Hum.rec.anlog 100 UNIT/ML 10 ML VIAL 7 UNIT SUBCUT (09:42)
[2020-05-23] MEDS: Gabapentin 400 MG CAPSULE 800 MG PO ×3 (09:43→20:39)
[2020-05-23] MEDS: Atorvastatin Calcium 80 MG TABLET PO (09:43)
[2020-05-23] MEDS: metFORMIN HCl 1,000 MG TABLET 1000 MG PO ×2 (09:43→20:44)
[2020-05-23] MEDS: carvediloL 25 MG TABLET PO ×2 (09:43→20:40)
[2020-05-23] MEDS: Multivitamin TABLET 1 TAB PO (09:44)
[2020-05-23] MEDS: Aspirin Enteric Coated 81 MG TABLET.DR PO (09:44)
[2020-05-23] MEDS: Pioglitazone HCL 45 MG TABLET PO (09:44)
[2020-05-23] MEDS: Escitalopram Oxalate 20 MG TABLET PO (09:44)
[2020-05-23] MEDS: Ferrous Sulfate 324 MG TABLET.DR PO ×2 (09:44→20:39)
[2020-05-23] MEDS: 0.9 % Sodium Chloride Flush 10 ML SYRINGE 5 ML IVFLUSH ×3 (09:45→20:41)
[2020-05-23] MEDS: amLODIPine Besylate 5 MG TABLET 10 MG PO (09:46)
[2020-05-23 11:34] LABS: Glucose, Whole Blood 103 mg/dL (60-115)
--- NOTE | 2020-05-23 12:01 | MHC.CM.PN ---
Addendum entered by Amanda Tobias 05/24/20 08:30: AT APPROXIMATELY 1615 ON 05/23/20, CM WAS INFORMED VIA [facility], THAT PT WAS REFUSING TO GO TO STR. DC WAS CANCELLED FOR THAT DAY. CM WILL MEET WITH PT THIS MORNING WITH A KEYLINER TO DISCUSS DC TODAY. OF NOTE, PT HAS CHANGED HER MIND SEVERAL TIMES, INITIALLY PLANNING TO GO HOME AND THEN AGREEING TO STR. CM WILL REVIEW DC OPTIONS WITH PT AGAIN AND MAKE ARRANGEMENTS BASED ON PT PREFERENCES. IF PT AGREES TO STR, HER PREFERRED FACILITY, [facility], HAS A BED TODAY. IF PT WANTS TO GO HOME, OPTION SNF [facility] WILL LIKELY DELIVER TOMORROW SO DC WILL BE DELAYED. Original Note: PT CLEARED TO DC TODAY. CM SPOKE TO PTS DAUGHTER, TERENCE ([phone]) WHO REPORTS THEIR PREFERRED SNF IS [facility]. SHE IS AWARE THE PT HAS AGAIN INDICATED SHE WOULD LIKE TO GO HOME, HOWEVER SHE FEELS THIS WOULD BE UNSAFE DUE TO PTS CURRENT CONDITION AND HER IV MEDICATION NEEDS. TERENCE ASKS THAT PT BE SET UP TO DC LATER IN THE DAY SO THAT SHE CAN VISIT SHE WILL NOT BE ABLE TO SEE PT IN THE SNF FOR FEW DAYS. SHE IS AWARE THE PT WILL GO BY BLS TRANSPORT. PT WILL DC TO [facility] FOR STR TODAY AT 1530 HOURS [facility]IA [facility]
--- NOTE | 2020-05-23 15:54 | P.DS_ITS ---
DS: Providers Provider Date of Service: 05/23/20 Date of admission: 05/09/20 03:00 Primary care physician: Radha Jamison [facility] Consults: 05/09/20 05:24 Consult to General Surgery Routine Consulting Provider: Pj Lowery Reason for consultation: diabetic foot wound Has provider been notified: No Consult to Infectious Diseases Routine Consulting Provider: Sasha Castellanos Reason for consultation: diabetic foot ulcer-nonhealing Has provider been notified: No 05/09/20 10:45 Consult to Vascular Surgery Routine Consulting Provider: Caleb Aragon Reason for consultation: Arterial duplex shows lower arterial occulsion. came in fr nonhealing ulcer Has provider been notified: No 05/13/20 11:31 Consult to Cardiology Routine Consulting Provider: Ghanshyam Daniel Reason for consultation: pre-op eval for fem-pop Has provider been notified: No DS: Diagnosis Discharge Diagnosis (1) Diabetic foot ulcer: Status: Acute (2) Osteomyelitis: Status: Acute (3) PAD (peripheral artery disease): Status: Acute (4) Postoperative anemia: Status: Acute (5) Status post femoral-popliteal bypass surgery: Status: Acute DS: Medications Discharge Medications Home Medications: Home Medications Medication Instructions Recorded Confirmed metformin 1,000 mg PO BID 12/22/19 05/09/20 aspirin 81 mg tablet,delayed 81 mg PO DAILY 01/02/20 05/09/20 release atorvastatin 80 mg tablet 80 mg PO DAILY 01/02/20 05/09/20 carvedilol 25 mg tablet 25 mg PO BID 01/02/20 05/09/20 escitalopram oxalate 20 mg tablet 20 mg PO DAILY 01/02/20 05/09/20 ferrous sulfate 325 mg (65 mg 325 mg PO BID 01/02/20 05/09/20 iron) tablet gabapentin 800 mg tablet 800 mg PO TID 01/02/20 05/09/20 insulin degludec 100 unit/mL (3 10 unit SUBCUT DAILY 01/02/20 05/09/20 mL) subcutaneous pen insulin lispro 100 unit/mL 2 sliding scale dose SUBCUT 01/02/20 05/09/20 subcutaneous cartridge USEASDIRECTD lisinopril 40 mg tablet 40 mg PO DAILY 01/02/20 05/09/20 mirtazapine 45 mg tablet 45 mg PO DAILY 01/02/20 05/09/20 multivitamin 1 tab PO DAILY 01/02/20 05/09/20 oxycodone 5 mg capsule 5 mg PO NEEDED PRN 01/02/20 05/09/20 pioglitazone 45 mg tablet 45 mg PO DAILY 01/02/20 05/09/20 pantoprazole 40 mg tablet,delayed 40 mg PO DAILY tab 03/03/20 05/09/20 release Previous Rx's Medication Instructions Recorded ertapenem 1 g IV DAILY #40 ea 05/21/20 ferrous sulfate 325 mg PO BID #60 tab 05/22/20 omeprazole 20 mg PO DAILY #30 cap 05/22/20 DS: Summary Hospital Course Hospital Course: From admission history and physical by hospitalist Maria Luisa Mosher, 05/09/20: 59-year-old female with past medical history of DM, CAD, HTN, asthma, arth ritis, who presents to the hospital with complaints of left foot toe ulcers as well as nonhealing ulcer in her calf. . Was seen in wound clinic today and and she was asked to come to the ED as her wounds are not healing. Patient is also stating that she has painful ulcers in the last 2 digits of her left foot, painful 10/10, swollen, red, and warm, was draining clear liquid, she reports that she is currently on antibiotics with no improvement of her symptoms. No headache, no change in vision, no chest pain, no shortness of breath, no abdominal pain nausea or vomiting, no diarrhea constipation. No weakness numbness or tingling. On arrival to the ED vitals are significant for temp of 98.7?, heart rate of 103, blood pressure of 185/82, respiratory rate of 20, satting 98% on room air. Labs are significant for WBC count of 8.6, hemoglobin of 13.3, sodium of 137, potassium 4.2, labs are otherwise unremarkable. COVID-19 negative, foot x-ray shows no evidence of osteomyelitis. The patient was admitted to the hospitalist service. MRI of the left foot demonstrated osteomyelitis of the 5th toe. She was treated with IV vancomycin and piperacillin/tazobactam. The toe ulcers were dry and did not require debridement. Infectious Disease was consulted and antibiotics were narrowed to meropenem, to be changed to ertapenem upon discharge with a total duration of 6 weeks [to complete on 06/30/20). Vascular Surgery was consulted and angiography demonstrated total SFA occlusion. She underwent a left femoral/popliteal bypass without complications. She was transfused 1 unit of pRBCs for postoperative anemia. She was discharged to short-term rehabilitation to complete IV ertapenem as above. While on antibiotic therapy, weekly laboratory studies (CBCd, BMP, LFTs) are requested. She should follow up with the vascular surgeon, Caleb Aragon, in 2 weeks. Time Spent with Patient Time attestation: Total time spent providing and/or coordinating discharge services: 35 Discharge coordination time: Greater than 30 minutes Physical Exam Vital Signs: Vital Signs: Last Vital Signs Temp 97.6 F 05/23/20 11:40 Pulse 79 05/23/20 11:40 Resp 18 05/23/20 11:40 BP 159/85 H 05/23/20 11:40 Pulse Ox 95 05/23/20 11:40 Body Mass Index 31.4 Gen: in no acute distress HEENT: sclera anicteric, moist mucus membranes Neck: supple Lungs: clear to auscultation bilaterally Heart: regular rate and rhythm, no murmurs Abd: soft, non-tender, non-distended Ext: no edema, dry shallow ulcerations of L 4th and 5th toes, L fem-pop bypass incision clean/dry/intact Skin: warm/well-perfused Neuro: alert and oriented x3, no focal findings Psych: appropriate affect DS: Data Data Completed and Pending Completed studies during hospitalization [Text1]: Pending at discharge 05/18/20 11:01 Surgical [PTH] Routine Labs on day of discharge: Laboratory Results - last 24 hr 05/22/20 05/22/20 05/23/20 16:12 19:26 06:14 WBC 8.8 RBC 2.86 L Hgb 8.6 L Hct 26.5 L MCV 92.7 MCH 30.1 MCHC 32.5 RDW 14.0 Plt Count 392 MPV 9.2 L Absolute Nucleated RBC 0.000 Nucleated RBC % (auto) 0.0 Sodium Potassium Chloride Carbon Dioxide Anion Gap BUN Creatinine Estim Creat Clear Calc Estimated GFR POC Glucose 118 H 124 H Random Glucose Calcium 05/23/20 05/23/20 05/23/20 06:14 07:26 11:28 WBC RBC Hgb Hct MCV MCH MCHC RDW Plt Count MPV Absolute Nucleated RBC Nucleated RBC % (auto) Sodium 142 Potassium 3.6 Chloride 108 Carbon Dioxide 23 Anion Gap 15 BUN 5 L Creatinine 0.49 L Estim Creat Clear Calc 120.8 Estimated GFR > 60 POC Glucose 94 103 Random Glucose 86 D Calcium 7.5 L Discharge Plan Discharge Patient Disposition: [facility] Referrals: [facility] [Outside] Radha Jamison DO [Physician] - MargoCaleb lara MD [Physician] - Discharge Medications: New ertapenem 1 gram recon soln 1 g IV DAILY Qty: 40 RF: 0 ferrous sulfate 325 mg (65 mg iron) tablet,delayed release (DR/EC) 325 mg PO BID Qty: 60 RF: 0 omeprazole 20 mg capsule,delayed release(DR/EC) 20 mg PO DAILY Qty: 30 RF: 0 Continued metformin 1,000 mg Tablet 1,000 mg PO BID RF: 0 carvedilol [Coreg] 25 mg tablet 25 mg PO BID RF: 0 multivitamin Tablet 1 tab PO DAILY RF: 0 lisinopril 40 mg tablet 40 mg PO DAILY RF: 0 gabapentin 800 mg tablet 800 mg PO TID RF: 0 aspirin [Adult Low Dose Aspirin] 81 mg tablet,delayed release (DR/EC) 81 mg PO DAILY RF: 0 ferrous sulfate 325 mg (65 mg iron) tablet 325 mg PO BID RF: 0 pioglitazone [Actos] 45 mg tablet 45 mg PO DAILY RF: 0 escitalopram oxalate [Lexapro] 20 mg tablet 20 mg PO DAILY RF: 0 mirtazapine 45 mg tablet 45 mg PO DAILY RF: 0 atorvastatin [Lipitor] 80 mg tablet 80 mg PO DAILY RF: 0 Tresiba FlexTouch U-100 100 unit/mL (3 mL) insulin pen 10 unit subcut DAILY RF: 0 Humalog U-100 Insulin 100 unit/mL cartridge 2 sliding scale dose subcut USEASDIRECTD RF: 0 oxycodone 5 mg capsule 5 mg PO NEEDED PRN (Reason: Pain) RF: 0 pantoprazole [Protonix] 40 mg tablet,delayed release (DR/EC) 40 mg PO DAILY RF: 0 Discontinued cephalexin [Keflex] 500 mg capsule 500 mg PO Q6H 10 Days Qty: 40 RF: 0 Discharge Orders: Discharge Order (Routine); Ordered 05/21/20 Ordered By: Sukhchain Silver Diet: advance to usual diet and diabetic diet Activity on Discharge: As tolerated Stand Alone Forms: Patient Portal Discharge page Care Plan Goals: Nonhealing diabetic foot ulcer-had MRIs showed osteomyelitis 5th toe. Patient was initially started on IV vancomycin and Zosyn-subsequently was switched to ertapenem upon discharge. Patient is to complete 6 weeks of ertapenem- final date is 06/30/20. Patient will need CBC, BMP, LFTs qweek while on antibiotics. Please start on 05/25/20. Patient underwent angiogram and subsequently left sided femoral pop bypass by Dr. Aragon , leg area is still somewhat sore but seems improving. Patient will need rehab. Continue dry sterile dressing changes. Postoperative anemia: Received 1 unit pRBCs and last H+H was 8.6/27.3 Health Concerns: As above. Plan of Treatment: As above. Assessment: As above.
[2020-05-23 16:48] LABS: Glucose, Whole Blood 138 mg/dL (60-115)
--- NOTE | 2020-05-23 16:53 | P.PNIM_ITS ---
Subjective Subjective Date of Service: 05/23/20 Interval History: no complaints but refuses to go to rehab diarrhea/abd pain resolved Physical Exam Vital Signs: Vital Signs: Last Vital Signs Temp 98.2 F 05/23/20 15:57 Pulse 75 05/23/20 15:57 Resp 17 05/23/20 15:57 BP 175/78 H 05/23/20 15:57 Pulse Ox 93 05/23/20 15:57 Body Mass Index 31.4 Gen: in no acute distress HEENT: sclera anicteric, moist mucus membranes Neck: supple Lungs: clear to auscultation bilaterally Heart: regular rate and rhythm, no murmurs Abd: soft, non-tender, non-distended Ext: no edema, dry shallow ulcerations of L 4th and 5th toes, L fem-pop bypass incision clean/dry/intact, RUE PICC in place Skin: warm/well-perfused Neuro: alert and oriented x3, no focal findings Psych: appropriate affect Objective Data Current Medications Generic Name Dose Route Start Last Admin Trade Name Royalq PRN Reason Stop Dose Admin Acetaminophen 650 mg 05/09/20 05:24 05/16/20 09:11 Acetaminophen 325 Mg Tablet PO 650 mg Q6H PRN Administration Pain, Mild (Pain Scale 1-3) Acetaminophen 650 mg 05/13/20 11:26 Acetaminophen 325 Mg Tablet PO Q6H PRN Pain, Mild (Pain Scale 1-3) Albuterol Sulfate 2.5 mg 05/18/20 08:24 Albuterol Sulfate (0.083%) 2.5 Mg/3 Ml Vial.Neb INHALE ONCE PRN Wheezing Amlodipine Besylate 10 mg 05/23/20 09:45 05/23/20 09:46 Amlodipine Besylate 5 Mg Tablet PO 10 mg DAILY [facility] Administration Protocol Aspirin 81 mg 05/09/20 09:00 05/23/20 09:44 Aspirin Enteric Coated 81 Mg Tablet.Dr PO 81 mg DAILY JORY Administration Atorvastatin Calcium 80 mg 05/09/20 09:00 05/23/20 09:43 Atorvastatin Calcium 80 Mg Tablet PO 80 mg DAILY JORY Administration Carvedilol 25 mg 05/09/20 09:00 05/23/20 09:43 Carvedilol 25 Mg Tablet PO 25 mg BID JORY Administration Protocol Docusate Sodium 100 mg 05/09/20 05:24 Docusate Sodium 100 Mg Capsule PO DAILY PRN Constipation Enoxaparin Sodium 40 mg 05/09/20 06:00 05/23/20 04:53 Enoxaparin Sodium 40 Mg/0.4 Ml Syringe SUBCUT 40 mg Q24H JORY Administration Escitalopram Oxalate 20 mg 05/09/20 09:00 05/23/20 09:44 Escitalopram Oxalate 20 Mg Tablet PO 20 mg DAILY JORY Administration Ferrous Sulfate 324 mg 05/20/20 21:00 05/23/20 09:44 Ferrous Sulfate 324 Mg Tablet. PO 324 mg BID JORY Administration Gabapentin 800 mg 05/09/20 09:00 05/23/20 15:20 Gabapentin 400 Mg Capsule PO 800 mg TID JORY Administration Meropenem 1 gm/ Sodium 100 mls @ 100 mls/hr 05/20/20 09:00 05/23/20 11:40 Chloride IV Infused Q8H JORY Infusion Insulin Glargine 7 unit 05/09/20 09:00 05/23/20 09:42 Insulin Glargine,Hum.Rec.Anlog 100 Unit/Ml 10 Ml Vial SUBCUT 7 unit DAILY [facility] Administration Insulin Human Lispro 0 unit 05/09/20 07:30 05/23/20 12:08 Insulin Lispro 100 Unit/Ml 3 Ml Vial SUBCUT Not Given QIDACHS [facility] Protocol Lisinopril 40 mg 05/09/20 09:00 05/19/20 08:42 Lisinopril 40 Mg Tablet PO Not Given DAILY [facility] Protocol Metformin HCl 1,000 mg 05/20/20 21:00 05/23/20 09:43 Metformin Hcl 1,000 Mg Tablet PO 1,000 mg BID JORY Administration Mirtazapine 45 mg 05/09/20 21:00 05/22/20 19:34 Mirtazapine 15 Mg Tablet PO 45 mg BEDTIME JORY Administration Multivitamins/Vitamin C 1 tab 05/09/20 09:00 05/23/20 09:44 Multivitamin Tablet PO 1 tab DAILY [facility] Administration Omeprazole 20 mg 05/09/20 06:30 05/23/20 04:53 Omeprazole 20 Mg Capsule. PO 20 mg DAILY@0630 JORY Administration Ondansetron HCl 4 mg 05/09/20 05:24 Ondansetron Hcl 4 Mg/2 Ml Vial IVPUSH Q8H PRN Nausea and Vomiting Pharmacy Consult 1 each 05/08/20 22:17 Consult Rx Perform Med Rec MISCELLANE ONCE PRN Consult order Pioglitazone HCl 45 mg 05/21/20 09:00 05/23/20 09:44 Pioglitazone Hcl 45 Mg Tablet PO 45 mg DAILY JORY Administration Sodium Chloride 5 ml 05/21/20 16:00 05/23/20 15:21 0.9 % Sodium Chloride Flush 10 Ml Syringe IVFLUSH 5 ml TID JORY Administration Labs CBC & Chem 7: 05/23/20 06:14 05/23/20 06:14 Labs: Laboratory Results - last 24 hr 05/22/20 05/23/20 05/23/20 19:26 06:14 06:14 WBC 8.8 RBC 2.86 L Hgb 8.6 L Hct 26.5 L MCV 92.7 MCH 30.1 MCHC 32.5 RDW 14.0 Plt Count 392 MPV 9.2 L Absolute Nucleated RBC 0.000 Nucleated RBC % (auto) 0.0 Sodium 142 Potassium 3.6 Chloride 108 Carbon Dioxide 23 Anion Gap 15 BUN 5 L Creatinine 0.49 L Estim Creat Clear Calc 120.8 Estimated GFR > 60 POC Glucose 124 H Random Glucose 86 D Calcium 7.5 L 05/23/20 05/23/20 05/23/20 07:26 11:28 16:37 WBC RBC Hgb Hct MCV MCH MCHC RDW Plt Count MPV Absolute Nucleated RBC Nucleated RBC % (auto) Sodium Potassium Chloride Carbon Dioxide Anion Gap BUN Creatinine Estim Creat Clear Calc Estimated GFR POC Glucose 94 103 138 H Random Glucose Calcium Microbiology Microbiology Results: Microbiology 05/08/20 22:52 Blood - Venous Blood Culture - Final No growth after 5 days. 05/08/20 22:52 Blood - Venous Blood Culture - Final No growth after 5 days. 05/09/20 05:53 Urine clean catch - Clean Catch Midstream Urine Culture - F inal Assessment and Plan (1) Diabetic foot ulcer: Status: Acute Assessment and Plan: 59yo F with DM2 sent from Wound Clinic with nonhealing ulcers of L 4th and 5th toes, found to have osteomyelitis of the R 5th toe and complete SFA occlusion # osteomyelitis # DM foot ulcer - initially on IV vanco + pip/ovidio, now on meropenem with plan to switch to ertapenem upon discharge per ID consultation # PAD - s/p fem-pop bypass, uncomplicated. ASA, statin # HTN - continue lisinopril, amlodipine, carvedilol # DM2 - basal/bolus insulin, MTF, pioglitazone # DM neuropathy - gabapentin # CAD - continue ASA, B-anni, statin # GERD - continue PPI # mood disorder - continue mirtazapine + escitalopram # dispo - pt was ready for discharge to STR/SNF today but refused at last moment. will have to revisit in am as it is not thought safe to d/c her home with IV ABX (2) Uncontrolled diabetes mellitus: Status: Acute
[2020-05-23] MEDS: Mirtazapine 15 MG TABLET 45 MG PO (20:39)
--- NOTE | 2020-05-23 20:46 | PC.NURSE ---
P elevated BP 184/[address] Mosher notified,scheduled Coreg administered E will monitor
[2020-05-23] MEDS: Acetaminophen 325 MG TABLET 650 MG PO (20:51)
[2020-05-23 21:04] LABS: Glucose, Whole Blood 139 mg/dL (60-115)
--- NOTE | 2020-05-24 00:02 | PC.NURSE ---
patient refused to be discharged to [facility] earlier today,Raphael leblanc was notified and Amanda from Case management.
[2020-05-24] MEDS: Morphine Sulfate 4 MG/ML CARTRIDGE 3 MG IVPUSH (02:23)
[2020-05-24 03:36] VITALS: RESP 18
[2020-05-24 04:00] VITALS: BP 178/76; PULSE 70; RESP 18; TEMP 36.4; O2SAT 94
[2020-05-24] MEDS: Omeprazole 20 MG CAPSULE.DR PO (06:00)
[2020-05-24] MEDS: Enoxaparin Sodium 40 MG/0.4 ML SYRINGE SUBCUT (06:01)
[2020-05-24 07:23] LABS: Glucose, Whole Blood 98 mg/dL (60-115)
[2020-05-24 08:00] VITALS: BP 170/70; PULSE 74; RESP 18; TEMP 36.4; O2SAT 94; BMI 31.1
--- NOTE | 2020-05-24 09:10 | MHC.CM.PN ---
Addendum entered by Amanda Tobias 05/24/20 14:21: PTS DAUGHTER INFORMED CM THAT PT DOES NOT HAVE A WALKER AT HOME. CM INFORMED HER SHE WOULD NEED TO TAKE A SCRIPT TO THE LOCAL MEDICAL SUPPLY STORE TO OBTAIN ONE. REQUEST FOR SCRIPT FORWARDED TO . Addendum entered by Amanda Tobias 05/24/20 11:54: [facility] HAS CONFIRMED THEY HAVE ALL NECESSARY DOCUMENTATION AND WILL BE ABLE TO DELIVER PTS MEDICATIONS AND SUPPLIES BY TOMORROW AT 1500 HOURS. [facility] CONFIRMS THEY WILL BE ABLE TO SEE PT TOMORROW AFTERNOON TO ADMINISTER MEDS. PTS DAUGHTER WILL MEET THE NURSE AT PTS HOME FOR TEACHING. CM SPOKE TO PTS DAUGHTER, TERENCE ([phone]) WHO CONFIRMS SHE WILL BE THE ONE LEARNING AND ADMINISTERING MEDS ON THE DAYS THE [facility] IS NOT PRESENT. TERENCE WILL ARRANGE TRANSPORTATION FOR PT WELL. PT WILL HAVE HER INFUSION HERE AT 1400 HOURS AND DC RIGHT AFTER. PT WILL DC HOME TODAY WITH [facility] AND [facility]. PTS DAUGHTER TO TRANSPORT Original Note: CM MET WITH PT WITH THE ASSISTANCE OF [facility]. PT REPORTS SHE DOES NOT WANT TO GO TO [facility]. SHE REPORTS SHE HAS A HOME THAT IS SAFE AND SHE DOES NOT KNOW WHO WILL BE AT THE REHAB AND IF THEY WILL HAVE COVID-19. PT REPORTS SHE HAS BEEN WALKING AROUND IN HER ROOM AND FEELS SHE IS DOING WELL. OF NOTE, PT WAS AMBULATING IN HER ROOM USING A WALKER WHEN CM ENTERED. PT REPORTS SHE IS 59 YO AND NO ONE CAN OBLIGATE HER TO GO TO A SNF. CM REMINDED PT OF HER DISCUSSION WITH HER SURGEON ON MONDAY AND THAT HE HAD CONCERNS ABOUT HER GOING HOME. SHE REPORTS SHE CANNOT REMEMBER WHAT THE SURGEONS CONCERNS WERE BUT SHE REPORTS THE ONLY THING WRONG WITH HER IS HER FOOT WHICH SHE FEELS IS MANAGEABLE. CM DISCUSSED WITH PT WHAT WOULD BE INVOLVED IF SHE DID GO HOME INCLUDING IV ABX, VNA AND HOME PT. PT REPORTS SHE HAS HAD IV ABX AT HOME IN THE PAST AND FEELS SHE AND HER DAUGHTER WILL BE ABLE TO MANAGE THIS WITH NO PROBLEMS. PTS DAUGHTER HAS CONFIRMED WITH CM THAT SHE WOULD BE WILLING TO GO TO PTS HOME DAILY TO ASSIST WITH MED ADMINISTRATION. CM WILL CONTACT [facility] AND [facility] TO DETERMINE EARLIEST POSSIBLE DC HOME.
[2020-05-24] MEDS: 0.9 % Sodium Chloride Flush 10 ML SYRINGE 5 ML IVFLUSH (09:24)
[2020-05-24] MEDS: Atorvastatin Calcium 80 MG TABLET PO (09:25)
[2020-05-24] MEDS: carvediloL 25 MG TABLET PO (09:25)
[2020-05-24] MEDS: Multivitamin TABLET 1 TAB PO (09:25)
[2020-05-24] MEDS: Ferrous Sulfate 324 MG TABLET.DR PO (09:25)
[2020-05-24] MEDS: metFORMIN HCl 1,000 MG TABLET 1000 MG PO (09:25)
[2020-05-24] MEDS: Insulin Glargine,Hum.rec.anlog 100 UNIT/ML 10 ML VIAL 7 UNIT SUBCUT (09:25)
[2020-05-24] MEDS: Escitalopram Oxalate 20 MG TABLET PO (09:25)
[2020-05-24] MEDS: amLODIPine Besylate 5 MG TABLET 10 MG PO (09:26)
[2020-05-24] MEDS: Aspirin Enteric Coated 81 MG TABLET.DR PO (09:26)
[2020-05-24] MEDS: Gabapentin 400 MG CAPSULE 800 MG PO (09:26)
[2020-05-24] MEDS: lisinopriL 40 MG TABLET PO (09:26)
[2020-05-24] MEDS: Pioglitazone HCL 45 MG TABLET PO (09:26)
--- NOTE | 2020-05-24 11:30 | W.MHC.F2F ---
Service Date Service Date: 05/24/20 Encounter Date of encounter: 05/24/20 Reasons for Services Signs and symptoms assessed: IV antibiotic administration via PICC peripheral artery disease s/p fem/pop bypass Reason for senior care: wound care, administration of IV, SQ, or IM injection, central line care, diabetic teaching, medication management and medication treatment Reason for physical therapy: home safety and mobility, therapeutic exercises, gait/transfer training, assess need for DME, ADL training and energy conservation MD Overseeing Care: Radha Jamison Homebound: Leaving the home is medically contraindicated at this time without the asist of a device and/or another person due th the listed conditions above and below. Reason homebound: immunosuppression / infection risk and weakness related to hospital stay Certification: Based on the above findings, I certify that this patient is confined to the home and needs intermittent senior care care, physical therapy and/or speech therapy, or continues to need occupational therapy. The patient is under my care, and I have initiated the establishment of the plan of care. The patient will be followed by a physician who will periodically review the plan of care.
[2020-05-24 11:36] LABS: Glucose, Whole Blood 116 mg/dL (60-115)
[2020-05-24 12:00] VITALS: BP 142/66; PULSE 76; RESP 18; TEMP 36.4; O2SAT 96
[2020-05-24] MEDS: Ertapenem Sodium 1 GM in 0.9 % Sodium Chloride 50 ML IV (15:08)
== END 2020-05-24 15:14 | disposition home health service (06) | DRG 181 ==
LOC: HO.ED 05-09 00:04 → HO.EDOVER 05-09 05:00 → HO.S3 05-09 05:30 → HO.ICU 05-18 18:53 → HO.IMC 05-19 11:26
PROVIDERS: Hospitalist; Internal Medicine; Internal Medicine Cardiovascular Disease; Physician Assistant; Surgery Vascular Surgery; Admitting Provider Internal Medicine; Emergency Provider Emergency Medicine; PCP Family Medicine; Visit Provider Family Medicine
PROC: 04CL0ZZ Extirpation of Matter from Left Femoral Artery, Open Approach (ICD-10-PCS; principal; 2020-05-18 08:30)
DX: E11.51 Type 2 diabetes mellitus with diabetic peripheral angiopathy without gangrene (principal); E11.69 Type 2 diabetes mellitus with other specified complication; E11.65 Type 2 diabetes mellitus with hyperglycemia; L97.229 Non-pressure chronic ulcer of left calf with unspecified severity; D62 Acute posthemorrhagic anemia; I70.242 Atherosclerosis of native arteries of left leg with ulceration of calf; I70.245 Atherosclerosis of native arteries of left leg with ulceration of other part of foot; L97.529 Non-pressure chronic ulcer of other part of left foot with unspecified severity; K21.9 Gastro-esophageal reflux disease without esophagitis; I25.10 Atherosclerotic heart disease of native coronary artery without angina pectoris; F39 Unspecified mood [affective] disorder; I10 Essential (primary) hypertension; J45.909 Unspecified asthma, uncomplicated; F17.210 Nicotine dependence, cigarettes, uncomplicated; Z20.822 Contact with and (suspected) exposure to COVID-19; Z71.6 Tobacco abuse counseling; Z79.4 Long term (current) use of insulin; Z79.82 Long term (current) use of aspirin; Z79.891 Long term (current) use of opiate analgesic; Z79.899 Other long term (current) drug therapy; M86.9 Osteomyelitis, unspecified
CPT/HCPCS: 36247; 36415; 36573; 71045; 73620; 73720; 75625; 75710; 76937; 80048; 80076; 80202; 81001; 81003; 82947; 83605; 83690; 85014; 85018; 85025; 85027; 85610; 85652; 86140; 86850; 86900; 86923; 87040; 87086; 87635; 88304; 93005; 93306; 93925; 96365; 96368; 97116; 97162; 99152; 99153; 99285; A9585; C1751; C1757; C1758; C1768; C1769; C1887; C1894; J1100; J1170; J1335; J1650; J1885; J2185; J2250; J2270; J2405; J2543; J3010; J3370; P9016; Q9967

== ENCOUNTER 2020-05-29 10:38 | Outpatient (REF) | payer MEDICAID, SELFPAY ==
[2020-05-29 10:42] LABS: MANUAL DIFF FLAG NO
[2020-05-29 10:48] LABS: Basophils Absolute Auto 0.1 X10*3/uL (0.0-0.2); Basophils Percent Auto 0.7 % (0-2); Eosinophils Absolute Auto 0.4 X10*3/uL (0.0-0.4); Hemoglobin 10.9 g/dl (12.0-16.0); Imm Gran Abs Auto 0.03 X10*3/uL (0.00-0.03); Imm Gran Pct Auto 0.3 % (0.0-0.4); Lymphocytes Absolute Auto 1.5 X10*3/uL (1.2-4.9); Lymphocytes Percent Auto 17.2 % (20-40); Mean Corpuscular HGB Conc 32.1 g/dl (31.0-35.0); Mean Corpuscular Hemoglobin 29.1 pg (27.0-33.0); Mean Corpuscular Volume 90.9 fL (80-98); Mean Platelet Volume 8.8 fL (9.4-12.3); Monocytes Absolute Auto 0.5 X10*3/uL (0.1-1.2); Neutrophils Absolute Auto 6.4 X10*3/uL (2.0-8.3); Neutrophils Percent Auto 71.8 % (45-73); Platelet Count 561 X10*3/uL (160-400); Red Blood Count 3.74 X10*6/uL (4.20-5.50); Red Cell Distribution Width 13.7 % (11.0-16.0)
[2020-05-29 11:12] LABS: Anion Gap 15 (12-20); Blood Urea Nitrogen 6 mg/dL (9-16); Carbon Dioxide 29 mmol/L (22-29); Chloride 101 mmol/L (96-108); Potassium 4.1 mmol/L (3.3-5.1); Sodium 141 mmol/L (135-145)
[2020-05-29 11:13] LABS: Alanine Aminotransferase 12 U/L (0-31); Albumin Level 3.2 g/dL (3.5-5.0); Alkaline Phosphatase 99 U/L (39-117); Aspartate Amino Transferase 11 U/L (5-31); Bilirubin Direct 0.2 mg/dL (0.0-0.5); Bilirubin Total 0.6 mg/dL (0.0-1.0); Calcium 8.8 mg/dL (8.4-10.2); Estimated Glomerular Filt Rate > 60; Glucose Random 207 mg/dL (60-115)
== END 2020-05-29 10:39 | disposition home or self-care (01) ==
LOC: HO.LNP 10:38
PROVIDERS: Visit Provider Internal Medicine
DX: L08.9 Local infection of the skin and subcutaneous tissue, unspecified (principal); Z20.822 Contact with and (suspected) exposure to COVID-19; Z88.6 Allergy status to analgesic agent; Z91.040 Latex allergy status; Z79.84 Long term (current) use of oral hypoglycemic drugs; Z79.899 Other long term (current) drug therapy
CPT/HCPCS: 80048; 80076; 85025

== ENCOUNTER 2020-06-05 14:13 | Outpatient (REF) | payer MEDICAID, SELFPAY ==
[2020-06-05 14:16] LABS: MANUAL DIFF FLAG NO
[2020-06-05 14:20] LABS: Basophils Absolute Auto 0.1 X10*3/uL (0.0-0.2); Basophils Percent Auto 0.9 % (0-2); Eosinophils Absolute Auto 0.4 X10*3/uL (0.0-0.4); Eosinophils Percent Auto 5.4 % (0-4); Hematocrit 32.7 % (37-47); Hemoglobin 10.6 g/dl (12.0-16.0); Imm Gran Abs Auto 0.03 X10*3/uL (0.00-0.03); Imm Gran Pct Auto 0.5 % (0.0-0.4); Lymphocytes Absolute Auto 1.7 X10*3/uL (1.2-4.9); Mean Corpuscular HGB Conc 32.4 g/dl (31.0-35.0); Mean Corpuscular Hemoglobin 29.4 pg (27.0-33.0); Mean Corpuscular Volume 90.8 fL (80-98); Mean Platelet Volume 9.2 fL (9.4-12.3); Monocytes Absolute Auto 0.4 X10*3/uL (0.1-1.2); Monocytes Percent Auto 5.7 % (2-11); Neutrophils Absolute Auto 3.9 X10*3/uL (2.0-8.3); Neutrophils Percent Auto 60.5 % (45-73); Platelet Count 394 X10*3/uL (160-400); Red Cell Distribution Width 13.3 % (11.0-16.0); White Blood Count 6.4 X10*3/uL (4.8-10.8)
[2020-06-05 15:02] LABS: Alanine Aminotransferase 7 U/L (0-31); Albumin Level 3.4 g/dL (3.5-5.0); Alkaline Phosphatase 99 U/L (39-117); Anion Gap 16 (12-20); Aspartate Amino Transferase 11 U/L (5-31); Bilirubin Direct 0.2 mg/dL (0.0-0.5); Bilirubin Total 0.5 mg/dL (0.0-1.0); Blood Urea Nitrogen 8 mg/dL (9-16); Calcium 8.7 mg/dL (8.4-10.2); Carbon Dioxide 25 mmol/L (22-29); Chloride 101 mmol/L (96-108); Estimated Glomerular Filt Rate > 60; Glucose Random 332 mg/dL (60-115); Potassium 3.9 mmol/L (3.3-5.1); Sodium 138 mmol/L (135-145); Total Protein 6.3 g/dL (6.5-8.0)
== END 2020-06-05 14:14 | disposition home or self-care (01) ==
LOC: HO.LNP 14:13
PROVIDERS: Visit Provider Internal Medicine
DX: M86.172 Other acute osteomyelitis, left ankle and foot (principal)
CPT/HCPCS: 80048; 80076; 85025

== ENCOUNTER → 2020-06-11 14:35 | Outpatient (BNVA) | payer MEDICAID, SELFPAY | PROVIDERS: PCP Family Medicine; Visit Provider Surgery Vascular Surgery | DX: Z95.828 Presence of other vascular implants and grafts (principal) | CPT/HCPCS: 99212 ==

== ENCOUNTER 2020-06-12 10:44 | Outpatient (REF) | payer MEDICAID, SELFPAY ==
[2020-06-12 10:47] LABS: MANUAL DIFF FLAG NO
[2020-06-12 10:59] LABS: Basophils Percent Auto 0.7 % (0-2); Eosinophils Absolute Auto 0.4 X10*3/uL (0.0-0.4); Eosinophils Percent Auto 6.1 % (0-4); Hematocrit 35.9 % (37-47); Hemoglobin 11.5 g/dl (12.0-16.0); Imm Gran Abs Auto 0.02 X10*3/uL (0.00-0.03); Imm Gran Pct Auto 0.3 % (0.0-0.4); Lymphocytes Absolute Auto 1.7 X10*3/uL (1.2-4.9); Lymphocytes Percent Auto 27.3 % (20-40); Mean Corpuscular Hemoglobin 29.1 pg (27.0-33.0); Mean Corpuscular Volume 90.9 fL (80-98); Mean Platelet Volume 9.5 fL (9.4-12.3); Monocytes Absolute Auto 0.4 X10*3/uL (0.1-1.2); Monocytes Percent Auto 6.6 % (2-11); Neutrophils Absolute Auto 3.6 X10*3/uL (2.0-8.3); Platelet Count 376 X10*3/uL (160-400); Red Blood Count 3.95 X10*6/uL (4.20-5.50); Red Cell Distribution Width 13.9 % (11.0-16.0)
[2020-06-12 12:02] LABS: Alanine Aminotransferase 16 U/L (0-31); Albumin Level 3.6 g/dL (3.5-5.0); Alkaline Phosphatase 95 U/L (39-117); Anion Gap 14 (12-20); Aspartate Amino Transferase 15 U/L (5-31); Bilirubin Direct 0.2 mg/dL (0.0-0.5); Bilirubin Total 0.4 mg/dL (0.0-1.0); Blood Urea Nitrogen 13 mg/dL (9-16); Carbon Dioxide 27 mmol/L (22-29); Chloride 103 mmol/L (96-108); Estimated Glomerular Filt Rate > 60; Glucose Random 331 mg/dL (60-115); Potassium 4.2 mmol/L (3.3-5.1); Sodium 140 mmol/L (135-145); Total Protein 6.3 g/dL (6.5-8.0)
== END 2020-06-12 10:45 | disposition home or self-care (01) ==
LOC: HO.HVNA 10:44
PROVIDERS: Visit Provider Internal Medicine
DX: E11.621 Type 2 diabetes mellitus with foot ulcer (principal)
CPT/HCPCS: 36415; 80048; 80076; 85025

== ENCOUNTER 2020-06-19 12:17 | Outpatient (REF) | payer MEDICAID, SELFPAY ==
[2020-06-19 12:21] LABS: MANUAL DIFF FLAG NO
[2020-06-19 12:25] LABS: Basophils Percent Auto 0.5 % (0-2); Eosinophils Absolute Auto 0.4 X10*3/uL (0.0-0.4); Eosinophils Percent Auto 6.5 % (0-4); Hematocrit 35.9 % (37-47); Hemoglobin 11.5 g/dl (12.0-16.0); Imm Gran Abs Auto 0.01 X10*3/uL (0.00-0.03); Imm Gran Pct Auto 0.2 % (0.0-0.4); Lymphocytes Absolute Auto 1.9 X10*3/uL (1.2-4.9); Lymphocytes Percent Auto 32.5 % (20-40); Mean Corpuscular Hemoglobin 29.3 pg (27.0-33.0); Mean Corpuscular Volume 91.3 fL (80-98); Mean Platelet Volume 9.3 fL (9.4-12.3); Monocytes Absolute Auto 0.4 X10*3/uL (0.1-1.2); Monocytes Percent Auto 6.4 % (2-11); Neutrophils Absolute Auto 3.1 X10*3/uL (2.0-8.3); Neutrophils Percent Auto 53.9 % (45-73); Platelet Count 370 X10*3/uL (160-400); Red Blood Count 3.93 X10*6/uL (4.20-5.50); Red Cell Distribution Width 14.2 % (11.0-16.0); White Blood Count 5.8 X10*3/uL (4.8-10.8)
[2020-06-19 12:45] LABS: Alanine Aminotransferase 17 U/L (0-31); Albumin Level 3.7 g/dL (3.5-5.0); Alkaline Phosphatase 104 U/L (39-117); Anion Gap 16 (12-20); Aspartate Amino Transferase 14 U/L (5-31); Bilirubin Direct 0.2 mg/dL (0.0-0.5); Bilirubin Total 0.2 mg/dL (0.0-1.0); Blood Urea Nitrogen 12 mg/dL (9-16); Calcium 9.1 mg/dL (8.4-10.2); Carbon Dioxide 26 mmol/L (22-29); Chloride 101 mmol/L (96-108); Estimated Glomerular Filt Rate > 60; Glucose Random 273 mg/dL (60-115); Potassium 4.3 mmol/L (3.3-5.1); Sodium 139 mmol/L (135-145); Total Protein 6.5 g/dL (6.5-8.0)
== END 2020-06-19 12:18 | disposition home or self-care (01) ==
LOC: HO.HVNA 12:17
PROVIDERS: Visit Provider Internal Medicine
DX: E11.621 Type 2 diabetes mellitus with foot ulcer (principal)
CPT/HCPCS: 36415; 80048; 80076; 85025

== ENCOUNTER 2020-06-25 13:05 | Outpatient (REF) | payer MEDICAID, SELFPAY ==
[2020-06-25 15:13] LABS: Estimated Average Glucose 226 mg/dL; Hemoglobin A1c % 9.5 %
[2020-06-25 15:31] LABS: Alanine Aminotransferase 28 U/L (0-31); Albumin Level 3.8 g/dL (3.5-5.0); Alkaline Phosphatase 107 U/L (39-117); Anion Gap 12 (12-20); Aspartate Amino Transferase 17 U/L (5-31); Bilirubin Total 0.3 mg/dL (0.0-1.0); Blood Urea Nitrogen 12 mg/dL (9-16); Calcium 9.4 mg/dL (8.4-10.2); Carbon Dioxide 31 mmol/L (22-29); Chloride 101 mmol/L (96-108); Cholesterol 210 mg/dL; Estimated Glomerular Filt Rate > 60; Glucose Random 255 mg/dL (60-115); HDL Cholesterol 45 mg/dL; LDL Cholesterol Calculated 121 mg/dl; Potassium 4.2 mmol/L (3.3-5.1); Sodium 140 mmol/L (135-145); Total Protein 6.4 g/dL (6.5-8.0); Triglycerides 224 mg/dL
[2020-06-25 15:41] LABS: Creatinine Urine 78.08 mg/dL; Microalbum/Creatinine Ratio Ur 143.4 ug/mg cr
[2020-06-25 15:54] LABS: Vitamin D 25-OH Total 18.8 ng/mL (>30)
[2020-06-26 05:26] LABS: LDL Cholesterol Direct 119 mg/dL (<100)
== END 2020-06-25 13:06 | disposition home or self-care (01) ==
LOC: HO.LAB 13:05
PROVIDERS: PCP Family Medicine; Referring Provider Family Medicine; Visit Provider Internal Medicine
DX: E11.3213 Type 2 diabetes mellitus with mild nonproliferative diabetic retinopathy with macular edema, bilateral (principal); E55.9 Vitamin D deficiency, unspecified; E78.5 Hyperlipidemia, unspecified; I10 Essential (primary) hypertension; Z79.4 Long term (current) use of insulin; Z79.899 Other long term (current) drug therapy; Z91.14 Patient's other noncompliance with medication regimen
CPT/HCPCS: 36415; 80053; 80061; 82043; 82306; 82947; 83036; 83721; 99202

== ENCOUNTER 2020-06-26 10:23 | Outpatient (REF) | payer MEDICAID, SELFPAY ==
[2020-06-26 10:35] LABS: Hematocrit 33.8 % (37-47); Hemoglobin 10.9 g/dl (12.0-16.0); Mean Corpuscular HGB Conc 32.2 g/dl (31.0-35.0); Mean Corpuscular Hemoglobin 29.2 pg (27.0-33.0); Mean Corpuscular Volume 90.6 fL (80-98); Mean Platelet Volume 9.4 fL (9.4-12.3); Platelet Count 307 X10*3/uL (160-400); Red Blood Count 3.73 X10*6/uL (4.20-5.50); Red Cell Distribution Width 14.4 % (11.0-16.0); White Blood Count 6.3 X10*3/uL (4.8-10.8)
[2020-06-26 10:58] LABS: Alanine Aminotransferase 27 U/L (0-31); Albumin Level 3.6 g/dL (3.5-5.0); Alkaline Phosphatase 102 U/L (39-117); Anion Gap 12 (12-20); Aspartate Amino Transferase 17 U/L (5-31); Bilirubin Direct 0.2 mg/dL (0.0-0.5); Bilirubin Total 0.4 mg/dL (0.0-1.0); Blood Urea Nitrogen 10 mg/dL (9-16); Calcium 8.8 mg/dL (8.4-10.2); Carbon Dioxide 28 mmol/L (22-29); Chloride 102 mmol/L (96-108); Estimated Glomerular Filt Rate > 60; Glucose Random 262 mg/dL (60-115); Potassium 4.1 mmol/L (3.3-5.1); Sodium 138 mmol/L (135-145); Total Protein 6.2 g/dL (6.5-8.0)
== END 2020-06-26 10:24 | disposition home or self-care (01) ==
LOC: HO.HVNA 10:23
PROVIDERS: Visit Provider Internal Medicine
DX: E11.621 Type 2 diabetes mellitus with foot ulcer (principal); L97.509 Non-pressure chronic ulcer of other part of unspecified foot with unspecified severity
CPT/HCPCS: 36415; 80048; 80076; 85027

== ENCOUNTER → 2020-07-03 13:47 | Outpatient (BNVA) | payer MEDICAID, SELFPAY | PROVIDERS: Visit Provider Internal Medicine | DX: M86.9 Osteomyelitis, unspecified (principal) | CPT/HCPCS: 99212 ==

== ENCOUNTER 2020-07-14 23:59 | Emergency (ER) | payer MEDICAID, SELFPAY ==
[2020-07-15 00:08] VITALS: BP 176/80; PULSE 88; RESP 18; TEMP 36.6; O2SAT 98; BMI 26.3
== END 2020-07-15 01:50 | disposition left against medical advice (07) ==
PROVIDERS: Emergency Provider Emergency Medicine
DX: I10 Essential (primary) hypertension (principal); R51.9 Headache, unspecified
CPT/HCPCS: 99281; 99282

== ENCOUNTER 2020-09-01 20:36 | Emergency (ER) | payer MEDICAID, SELFPAY ==
--- NOTE | ~2020-09-01 | US_ITS ---
EXAMINATION: US VENOUS ULTRASOUND WITH DOPPLER LOWER EXTREMITY, LEFT CLINICAL INFORMATION: Pain. Edema. Swelling. COMPARISON: None TECHNIQUE: Ultrasound of the deep veins is performed from the hip to the calf with compression sonography and color and pulse Doppler assessment. Spectral analysis with color-flow imaging is performed. FINDINGS: Patient had surgery on 04/2020. History of distal arterial stent placement. Swelling and edema at the scar site with a tract to the skin. Patient was unable to tolerate compression. Vascular flow noted within the graft. There is normal venous compression and respiratory variation and augmented flow. The visualized common femoral vein, superficial femoral vein, profunda femoral vein, popliteal vein, and the trifurcation region shows no evidence of deep venous thrombosis. There is no significant popliteal fossa cyst. Morphologically normal-appearing lymph node in the right groin with fatty cornelio. Short axis diameter 0.6 cm. US/US venous duplex LE LT IMPRESSION: 1. No DVT demonstrated in the left lower extremity. 2. Tract extending through the skin to the graft in the distal thigh with there is a stent. Vascular flow demonstrated within the stent. By history this is the site of recent surgery.
[2020-09-01 20:41] VITALS: BP 148/73; BP 181/81; PULSE 103; PULSE 105; RESP 16; TEMP 36.7; O2SAT 95; O2SAT 98; BMI 27.1
--- NOTE | 2020-09-01 21:07 | ED_ITS ---
HPI - Chest Pain General Chief Complaint: Chest Pain Stated Complaint: cp Time Seen by Provider: 09/01/20 21:07 Source: patient Mode of arrival: ambulatory Limitations: language barrier History of Present Illness HPI narrative: Patient is status post left femoropopliteal bypass, thrombectomy, enterectomy on 05/18/2020 complaining of pain at the site of graft since the surgery done which is getting worse and then she gets more pain her blood pressure was elevated to 200 sbp with chest pain prior to arrival received 2 nitroglycerin feeling better now on arrival patient's blood pressure was 148/73 at this time patient denies any chest pain feeling fine except for the pain at the site of draft. He denies any shortness of breath no cough no leg swelling Related Data Home Medications Medication Instructions Recorded Confirmed metformin 1,000 mg PO BID 12/22/19 06/25/20 aspirin 81 mg tablet,delayed 81 mg PO DAILY 01/02/20 06/25/20 release atorvastatin 80 mg tablet 80 mg PO DAILY 01/02/20 06/25/20 carvedilol 25 mg tablet 25 mg PO BID 01/02/20 06/25/20 escitalopram oxalate 20 mg tablet 20 mg PO DAILY 01/02/20 06/25/20 gabapentin 800 mg tablet 800 mg PO TID 01/02/20 06/25/20 insulin degludec 100 unit/mL (3 10 unit SUBCUT DAILY 01/02/20 06/25/20 mL) subcutaneous pen lisinopril 40 mg tablet 40 mg PO DAILY 01/02/20 06/25/20 mirtazapine 45 mg tablet 45 mg PO DAILY 01/02/20 06/25/20 multivitamin 1 tab PO DAILY 01/02/20 06/25/20 oxycodone 5 mg capsule 5 mg PO NEEDED PRN 01/02/20 06/25/20 Previous Rx's Medication Instructions Recorded ferrous sulfate 325 mg PO BID #60 tab 05/24/20 pantoprazole [Protonix] 40 mg PO DAILY #30 tab 05/24/20 walker #1 ea 05/24/20 blood sugar diagnostic #100 ea 06/25/20 blood-glucose meter #1 ea 06/25/20 dulaglutide 0.75 mg/0.5 mL 0.75 mg SUBCUT QWEEK 30 Days #2.5 06/25/20 subcutaneous pen injector ml lancets 28 gauge #100 ea 06/25/20 pioglitazone 30 mg tablet 30 mg PO DAILY 30 Days #30 tab 06/25/20 cholecalciferol (vitamin D3) 50 50 mcg PO DAILY 30 Days #30 cap 08/12/20 mcg (2,000 unit) capsule hydrochlorothiazide 25 mg tablet 25 mg PO DAILY #30 tab 08/13/20 tramadol 50 mg PO Q6H PRN #20 tab 09/01/20 Allergies Allergy/AdvReac Type Severity Reaction Status Date / Time latex [LATEX] Allergy Unknown RASH Verified 07/03/20 13:58 naproxen [From NAPROSYN] Allergy Unknown TACHYCARDIA Verified 07/03/20 13:58 Review of Systems Review of Systems: Yes all other systems are reviewed and are negative FOR[facility]LY [facility] Past Medical History Medical History Arthritis Asthma CAD (coronary artery disease) Cyst (solitary) of breast Diabetes H. pylori infection HLD (hyperlipidemia) HTN (hypertension) Kidney calculi T2DM (type 2 diabetes mellitus) Vitamin D deficiency Surgical History History of breast surgery History of cardiac cath History of coronary artery bypass graft History of esophagogastroduodenoscopy (EGD) Hx of colonoscopy Family History Family History Mother Diabetes Liver cancer Social History Social History Household Members: Spouse and Family Housing: Apartment Do you presently have visiting nurse or other home services: No Alcohol intake: current Alcohol intake frequency: does not drink Cigarettes Per Day: 2 Second Hand Smoke Exposure: No Advance Directives: No Advance Directives Information Provided: Yes service: No Current occupational status: unemployed and disabled Physical Exam Vital Signs: Vital Signs: Last Vital Signs Temp 98.1 F 09/01/20 20:41 Pulse 85 09/01/20 23:29 Resp 16 09/01/20 23:29 BP 138/71 09/01/20 23:29 Pulse Ox 98 09/01/20 23:29 Body Mass Index 27.1 Appearance: Alert. Oriented X3. No acute distress. Eyes: PERRLA, No Nystagmus ENT: Pharynx normal. Oral Mucosa moist Neck: Normal inspection. Neck supple. CVS: Normal heart rate and rhythm. Pulses normal. Respiratory: No respiratory distress. Equal air entry bilateral, no wheezing/rales/rhonchi Abdomen: Soft and nontender. Bowel sounds are present, no mass palpable, no CVA tenderness Skin: Skin warm and dry. Normal skin color. Normal skin turgor. Extremities: No lower extremity edema. No calf tenderness tenderness at the site of graft in left lower thigh Neuro: Oriented X 3. No motor deficit. No sensory deficit.No cerebellar signs , cranial nerves II-XII intact MDM - Chest Pain MDM Narrative Medical decision making narrative: Patient with chronic pain venous Doppler negative for any occlusion in the femoropopliteal graft with good flow. Patient is on oxycodone at home which she ran out of it yesterday will give prescription of tramadol advised to follow with PCP in Lab Data Attestation: I reviewed the patient's lab results. Result diagrams: 09/01/20 21:53 09/01/20 21:53 Labs: Lab Results 09/01/20 09/01/20 09/01/20 Range/Units 21:53 21:53 21:53 WBC 6.8 (4.8-10.8) X10*3/uL RBC 3.74 L (4.20-5.50) X10*6/uL Hgb 11.2 L (12.0-16.0) g/dl Hct 33.9 L (37-47) % MCV 90.6 (80-98) fL MCH 29.9 (27.0-33.0) pg MCHC 33.0 (31.0-35.0) g/dl RDW 14.6 (11.0-16.0) % Plt Count 259 (160-400) X10*3/uL MPV 9.0 L (9.4-12.3) fL Immature Gran % (Auto) 0.3 (0.0-0.4) % Neut % (Auto) 55.8 (45-73) % Lymph % (Auto) 28.1 (20-40) % [place] % (Auto) 7.9 (2-11) % Eos % (Auto) 7.5 H (0-4) % Baso % (Auto) 0.4 (0-2) % Lymph # (Auto) 1.9 (1.2-4.9) X10*3/uL [place] # (Auto) 0.5 (0.1-1.2) X10*3/uL Eos # (Auto) 0.5 H (0.0-0.4) X10*3/uL Baso # (Auto) 0.0 (0.0-0.2) X10*3/uL Abs Immat Gran (auto) 0.02 (0.00-0.03) X10*3/uL Absolute Neuts (auto) 3.8 (2.0-8.3) X10*3/uL Absolute Nucleated RBC 0.000 (0.0-0.012) X10*3/uL Nucleated RBC % (auto) 0.0 (0.0-0.2) /100WBC PT 12.4 (9.9-13.0) SEC INR 1.1 (0.9-1.1) APTT 36.6 (24.1-38.0) SEC Sodium 137 (135-145) mmol/L Potassium 4.4 (3.3-5.1) mmol/L Chloride 100 (96-108) mmol/L Carbon Dioxide 30 H (22-29) mmol/L Anion Gap 11 L (12-20) BUN 14 (9-16) mg/dL Creatinine 1.11 (0.5-1.4) mg/dL Estim Creat Clear Calc 49.6 Estimated GFR 50 Random Glucose 313 H (60-115) mg/dL Calcium 9.1 (8.4-10.2) mg/dL Troponin I High Sens (<3.5-17.0) ng/L 09/01/20 Range/Units 21:53 WBC (4.8-10.8) X10*3/uL RBC (4.20-5.50) X10*6/uL Hgb (12.0-16.0) g/dl Hct (37-47) % MCV (80-98) fL MCH (27.0-33.0) pg MCHC (31.0-35.0) g/dl RDW (11.0-16.0) % Plt Count (160-400) X10*3/uL MPV (9.4-12.3) fL Immature Gran % (Auto) (0.0-0.4) % Neut % (Auto) (45-73) % Lymph % (Auto) (20-40) % [place] % (Auto) (2-11) % Eos % (Auto) (0-4) % Baso % (Auto) (0-2) % Lymph # (Auto) (1.2-4.9) X10*3/uL [place] # (Auto) (0.1-1.2) X10*3/uL Eos # (Auto) (0.0-0.4) X10*3/uL Baso # (Auto) (0.0-0.2) X10*3/uL Abs Immat Gran (auto) (0.00-0.03) X10*3/uL Absolute Neuts (auto) (2.0-8.3) X10*3/uL Absolute Nucleated RBC (0.0-0.012) X10*3/uL Nucleated RBC % (auto) (0.0-0.2) /100WBC PT (9.9-13.0) SEC INR (0.9-1.1) APTT (24.1-38.0) SEC Sodium (135-145) mmol/L Potassium (3.3-5.1) mmol/L Chloride (96-108) mmol/L Carbon Dioxide (22-29) mmol/L Anion Gap (12-20) BUN (9-16) mg/dL Creatinine (0.5-1.4) mg/dL Estim Creat Clear Calc Estimated GFR Random Glucose (60-115) mg/dL Calcium (8.4-10.2) mg/dL Troponin I High Sens < 3.5 (<3.5-17.0) ng/L ECG Data ECG #1: Attestation: I personally reviewed and interpreted this ECG as follows: Interpretation: Normal sinus rhythm heart rate 95 beats per minute normal intervals normal axis no acute ischemic changes impression normal EKG Discharge Plan Discharge Clinical Impression: Musculoskeletal leg pain Qualifiers: Laterality: left Qualified Code(s): M79.605 - Pain in left leg Patient Disposition: Home, Self-Care Instructions: Musculoskeletal Pain (ED) Additional Instructions: Continue pain medication as prescribed and follow with PCP Prescriptions: New tramadol 50 mg tablet 50 mg PO Q6H PRN (Reason: pain) Qty: 20 RF: 0 No Action cholecalciferol (vitamin D3) 50 mcg (2,000 unit) capsule 50 mcg PO DAILY 30 Days Qty: 30 RF: 1 hydrochlorothiazide 25 mg tablet 25 mg PO DAILY Qty: 30 RF: 0 metformin 1,000 mg Tablet 1,000 mg PO BID RF: 0 (DME) walker Misc See Rx Instructions .ROUTE .MEDSUPPLY Qty: 1 RF: 0 pantoprazole [Protonix] 40 mg tablet,delayed release (DR/EC) 40 mg PO DAILY Qty: 30 RF: 0 ferrous sulfate 325 mg (65 mg iron) tablet 325 mg PO BID Qty: 60 RF: 0 pioglitazone 30 mg tablet 30 mg PO DAILY 30 Days Qty: 30 RF: 11 Trulicity 0.75 mg/0.5 mL pen injector 0.75 mg subcut QWEEK 30 Days Qty: 2.5 RF: 11 (DME) FreeStyle Lite Strips Strip See Rx Instructions .ROUTE .MEDSUPPLY Qty: 100 RF: 11 (DME) lancets [FreeStyle Lancets] 28 gauge misc See Rx Instructions .ROUTE .MEDSUPPLY Qty: 100 RF: 11 (DME) blood-glucose meter [FreeStyle Lite Meter] Kit See Rx Instructions .ROUTE .MEDSUPPLY Qty: 1 RF: 0 carvedilol [Coreg] 25 mg tablet 25 mg PO BID RF: 0 multivitamin Tablet 1 tab PO DAILY RF: 0 lisinopril 40 mg tablet 40 mg PO DAILY RF: 0 gabapentin 800 mg tablet 800 mg PO TID RF: 0 aspirin [Adult Low Dose Aspirin] 81 mg tablet,delayed release (DR/EC) 81 mg PO DAILY RF: 0 escitalopram oxalate [Lexapro] 20 mg tablet 20 mg PO DAILY RF: 0 mirtazapine 45 mg tablet 45 mg PO DAILY RF: 0 atorvastatin [Lipitor] 80 mg tablet 80 mg PO DAILY RF: 0 Tresiba FlexTouch U-100 100 unit/mL (3 mL) insulin pen 10 unit subcut DAILY RF: 0 oxycodone 5 mg capsule 5 mg PO NEEDED PRN (Reason: Pain) RF: 0
--- NOTE | 2020-09-01 21:16 | ECG_ITS ---
Test Reason : CHEST PAIN Blood Pressure : / mmHG Vent. Rate : 095 BPM Atrial Rate : 095 BPM P-R Int : 144 ms QRS Dur : 084 ms QT Int : 360 ms P-R-T Axes : 041 013 041 degrees QTc Int : 452 ms Normal sinus rhythm Normal ECG When compared with ECG of 14-MAY-2020 11:48, Nonspecific T wave abnormality no longer evident in Inferior leads Referred By: Antonio Scott Electronically Signed By:CAROLYNE ECHOLS MD
[2020-09-01 22:02] LABS: MANUAL DIFF FLAG NO
[2020-09-01 22:03] LABS: Basophils Percent Auto 0.4 % (0-2); Eosinophils Absolute Auto 0.5 X10*3/uL (0.0-0.4); Eosinophils Percent Auto 7.5 % (0-4); Hematocrit 33.9 % (37-47); Hemoglobin 11.2 g/dl (12.0-16.0); Imm Gran Abs Auto 0.02 X10*3/uL (0.00-0.03); Imm Gran Pct Auto 0.3 % (0.0-0.4); Lymphocytes Absolute Auto 1.9 X10*3/uL (1.2-4.9); Lymphocytes Percent Auto 28.1 % (20-40); Mean Corpuscular Hemoglobin 29.9 pg (27.0-33.0); Mean Corpuscular Volume 90.6 fL (80-98); Monocytes Absolute Auto 0.5 X10*3/uL (0.1-1.2); Monocytes Percent Auto 7.9 % (2-11); Neutrophils Absolute Auto 3.8 X10*3/uL (2.0-8.3); Neutrophils Percent Auto 55.8 % (45-73); Platelet Count 259 X10*3/uL (160-400); Red Blood Count 3.74 X10*6/uL (4.20-5.50); Red Cell Distribution Width 14.6 % (11.0-16.0); White Blood Count 6.8 X10*3/uL (4.8-10.8)
[2020-09-01 22:09] LABS: INTERNATIONAL NORM RATIO 1.1 (0.9-1.1); Prothrombin Time 12.4 SEC (9.9-13.0)
[2020-09-01 22:11] LABS: Partial Thromboplastin Time 36.6 SEC (24.1-38.0)
[2020-09-01 22:20] LABS: Anion Gap 11 (12-20); Blood Urea Nitrogen 14 mg/dL (9-16); Calcium 9.1 mg/dL (8.4-10.2); Carbon Dioxide 30 mmol/L (22-29); Chloride 100 mmol/L (96-108); Creatinine Clr Calc Pharmacy 49.6; Estimated Glomerular Filt Rate 50; Glucose Random 313 mg/dL (60-115); Potassium 4.4 mmol/L (3.3-5.1); Sodium 137 mmol/L (135-145)
[2020-09-01 22:27] LABS: Troponin-I High Sensitivity < 3.5 ng/L (<3.5-17.0)
[2020-09-01] MEDS: traMADoL HCL 50 MG TABLET PO (23:28)
[2020-09-01 23:29] VITALS: BP 138/71; PULSE 85; RESP 16; O2SAT 98
== END 2020-09-02 | disposition home or self-care (01) ==
PROVIDERS: Emergency Provider Internal Medicine
DX: M79.605 Pain in left leg (principal); E11.9 Type 2 diabetes mellitus without complications; I10 Essential (primary) hypertension; Z79.82 Long term (current) use of aspirin; Z79.84 Long term (current) use of oral hypoglycemic drugs; Z79.899 Other long term (current) drug therapy
CPT/HCPCS: 36415; 80048; 84484; 85025; 85610; 85730; 93005; 93971; 99284

== ENCOUNTER 2020-11-11 12:21 | Outpatient (REF) | payer MEDICAID, SELFPAY ==
--- NOTE | ~2020-11-11 | US_ITS ---
EXAMINATION: NONINVASIVE ASSESSMENT OF THE ARTERIES OF BOTH LOWER EXTREMITIES INCLUDING BILATERAL LOWER EXTREMITY DUPLEX CLINICAL INFORMATION: Peripheral vascular disease. COMPARISON: Ultrasound 04/23/2020. TECHNIQUE: Ankle pressure measurements and ankle brachial indices were obtained of the lower extremity arterial system in addition to duplex Doppler techniques with wave form analysis and measurement of velocities in the common femoral, profunda femoral, superficial femoral, popliteal, tibial and peroneal arteries. The study was performed only at rest. Patient was unable to tolerate left lower extremity BEVERLEY exam. FINDINGS: RIGHT LEG 1. Right Ankle-Brachial Index: 0.59 (higher of the DP/PT) >0.97-1.25 = normal - no significant arterial disease 0.75-0.96 = mild peripheral arterial disease 0.5-0.74 = moderate peripheral arterial disease <0.50 = severe peripheral arterial disease <0.30 = critical arterial disease 2. Segmental Pressures (mmHg): Brachial: 131 Ankle: PT 77 3. Direct Duplex: Common femoral artery: 135 cm/s, Multiphasic Profunda femoris artery: 157 cm/s, high resistance monophasic Superficial femoral artery (proximal): Occluded Superficial femoral artery (mid): Occluded Superficial femoral artery (distal): 31.8 cm/s, monophasic Proximal Popliteal artery: 57.4 cm/s, monophasic Distal popliteal artery: 64.4 cm/s, monophasic Proximal posterior tibial artery: 46.8 cm/s, monophasic Peroneal artery: 13 cm/s, monophasic LEFT LEG: Direct Duplex: Common femoral artery: 162 cm/s, high resistance multiphasic Profunda femoris artery: 297 cm/s, high resistance multiphasic Superficial femoral artery (proximal): 48.7 cm/s, monophasic Superficial femoral artery (mid): Occluded Superficial femoral artery (distal): Occluded Proximal Popliteal artery: 81.5 cm/s, monophasic Proximal posterior tibial artery: 406 cm/s, monophasic Mid posterior tibial artery: 13.6 cm/s, monophasic Peroneal artery: 32.6 cm/s, monophasic There is a femoropopliteal bypass with a graft in place. Inflow artery: 148 cm/s, multiphasic Proximal anastomosis 194 cm/s, monophasic Proximal graft: 90.4, multiphasic Mid graft: 44.4 cm/s, multiphasic Distal graft: 52.3 cm/s, monophasic Distal anastomosis: 61.7 cm/s, multiphasic Outflow artery: 36.9 cm/s, monophasic US/US arterial duplex LE BI IMPRESSION: Right BEVERLEY 0.59 suggesting moderate peripheral arterial disease. There is multiphasic flow within the common femoral artery and occlusion of the proximal to mid superficial femoral artery with reconstitution of flow within the distal superficial femoral artery with monophasic flow throughout the lower extremity beyond. Unable to obtain left lower extremity BEVERLEY. There is a patent left femoropopliteal bypass with possible monophasic flow at the proximal anastomosis. The superficial femoral artery remains occluded and there is monophasic flow within the popliteal and beyond. Given elevated velocity of the proximal posterior tibial artery, there may be a proximal stenosis.
== END 2020-11-11 12:22 | disposition home or self-care (01) ==
LOC: HO.US 12:21
PROVIDERS: PCP Family Medicine; Visit Provider Surgery Vascular Surgery
DX: I70.213 Atherosclerosis of native arteries of extremities with intermittent claudication, bilateral legs (principal)
CPT/HCPCS: 93923; 93925

== ENCOUNTER → 2020-11-19 13:59 | Outpatient (BNVA) | payer MEDICAID, SELFPAY | PROVIDERS: Visit Provider Surgery Vascular Surgery | DX: I73.9 Peripheral vascular disease, unspecified (principal) | CPT/HCPCS: 99212 ==

== ENCOUNTER 2020-12-02 06:02 | Day surgery (SDC) | payer MEDICAID, SELFPAY ==
[2020-12-02] VITALS (8 sets, daily range): BP systolic 131–163; BP diastolic 40–74; PULSE 69–83; RESP 16–18; TEMP 36.4–36.6; O2SAT 94–99; BMI 29.3
[2020-12-02 06:45] LABS: MANUAL DIFF FLAG NO
[2020-12-02 06:57] LABS: Prothrombin Time 11.4 SEC (9.9-13.0)
[2020-12-02 06:59] LABS: Partial Thromboplastin Time 36.4 SEC (24.1-38.0)
[2020-12-02 07:04] LABS: Anion Gap 12 (12-20); Basophils Percent Auto 0.7 % (0-2); Blood Urea Nitrogen 17 mg/dL (9-16); Calcium 9.3 mg/dL (8.4-10.2); Carbon Dioxide 27 mmol/L (22-29); Chloride 103 mmol/L (96-108); Eosinophils Absolute Auto 0.5 X10*3/uL (0.0-0.4); Eosinophils Percent Auto 7.5 % (0-4); Estimated Glomerular Filt Rate > 60; Glucose Random 290 mg/dL (60-115); Hemoglobin 12.1 g/dl (12.0-16.0); Imm Gran Abs Auto 0.01 X10*3/uL (0.00-0.03); Imm Gran Pct Auto 0.2 % (0.0-0.4); Lymphocytes Percent Auto 33.7 % (20-40); Mean Corpuscular HGB Conc 33.6 g/dl (31.0-35.0); Mean Corpuscular Hemoglobin 30.2 pg (27.0-33.0); Mean Corpuscular Volume 89.8 fL (80-98); Mean Platelet Volume 8.9 fL (9.4-12.3); Monocytes Absolute Auto 0.4 X10*3/uL (0.1-1.2); Neutrophils Absolute Auto 3.1 X10*3/uL (2.0-8.3); Neutrophils Percent Auto 50.9 % (45-73); Platelet Count 289 X10*3/uL (160-400); Potassium 4.4 mmol/L (3.3-5.1); Red Blood Count 4.01 X10*6/uL (4.20-5.50); Red Cell Distribution Width 13.4 % (11.0-16.0); Sodium 138 mmol/L (135-145)
[2020-12-02 07:15] LABS: Glucose, Whole Blood 258 mg/dL (60-115)
--- NOTE | 2020-12-02 09:32 | P.OP_ITS ---
Operative Note Operative Note Date of Service: 12/02/20 Narrative: Angiogram report from [facility] Preoperative diagnosis: Atherosclerosis of left lower extremity with claudication Postoperative diagnosis: Same Procedure: 1. Ultrasound-guided right common femoral access 2. Aortogram with left lower extremity runoff 3. Angioplasty of left profundus femoris, and angioplasty of left popliteal artery Surgeon:Caleb Aragon M.D., FACS, RPVI Wireless Construction Manager:None Anesthesia: Local with moderate conscious sedation. Total intraservice moderate sedation time was 64 minutes. I monitored the patient's level of consciousness and physiologic status continuously throughout the procedure. Specimens:none Drains:none Estimated blood loss: Less than 10 ml Implant: Medtronic DCB 4 x 40 Indications: 59-year-old female status post fem-pop bypass in May of this year. On surveillance ultrasound was found to have distal anastomotic stenosis. She now presents for endovascular intervention. The patient has signed the informed consent after reviewing risks, complications, benefits, and alternatives previously discussed with the patient. The patient was given the opportunity to ask any additional questions or voice any concerns. All questions were answered to the patient's satisfaction. Procedure in detail: Patient was brought to the angiography suite prior to which a time-out was called for patient identification and site verification. Bilateral groins were prepped and draped in the standard surgical fashion. Under ultrasound guidance rightcommon femoral was punctured with micro puncture needle and wire. Subsequently a precision 4 Macedonian sheath was then placed. Bentson wire was advanced to the level of the aorta. 4 Macedonian Flush catheter was brought up and parked at the level of the renal arteries. Aortogram was then undertaken. Catheter was brought down to the level of the iliac bifurcation. Iliacs were subsequently imaged. Catheter was then brought in up and over to the left side SFA. Runoff study was then undertaken. At this time the distal anastomotic stenosis was identified. 5000 units of systemic heparin was administered. After 5 minutes of circulation time and up and over 6 Macedonian sheath was then placed. We then brought a Glidewire Advantage across the anastomotic line. We confirmed true lumen of the popliteal with a trail Blazer catheter was instilled with contrast. Once we were across we plasty this area with a 4 x 40 regular balloon. Subsequently we brought in a drug coated balloon 4 x 40 which was brought into position in under 3 minutes and insufflated for a total of 3 minutes in duration. Excellent result was achieved. We then turned our attention to the profundus femoral S where it had stenotic area at the origin. We were able to get a wire across this area. Once again this was initially plasty and with a 3 x 40 regular balloon. We subsequently brought in a 4 x 40 drug coated balloon. This was brought into position in under 3 minutes and insufflated for a total of 3 minutes in duration. Once this was all done, completion angiogram demonstrated excellent result. Catheter wire sheath was then removed. Direct pressure was held for 10 minutes. Patient tolerated the procedure well. Interpretation of films: 1. Ultrasound demonstrates appropriate femoral puncture. Image of which was saved. 2. Aortogram demonstrates appropriate caliber aorta. Minimal disease. Appropriate take-off of the renals. 3. Iliac images demonstrate significant tortuosity with a narrow bifurcation, small caliber vessels 4. Left Leg Common femoral artery: Patent Profundus Femoris: Stenosis at origin Superficial femoral artery: Occluded, fem-pop bypass patent Popliteal artery (p1,p2,p3): High-grade stenosis at the distal anastomosis with patent P2 and P3 segments although small caliber Anterior tibial artery: Patent and dominant runoff Peroneal artery: Patent to ankle Posterior tibial artery: Occludes in mid calf Dorsalis pedis/plantar arch: Incomplete arch 5. Completion angiogram demonstrated excellent flow through the distal anastomosis and improved flow through the profundus femoris Conclusion: 1. Successful plasty of distal anastomosis of fem-pop and profundus femoris 2. Anticoagulation status: Patient will remain on aspirin and will start Plavix for a minimum of 6 months This note is constructed using voice recognition software. While every effort has been made to ensure accuracy, school bus dispatcher errors may have been included. Thank you for allowing me to participate in the care of your patient. Yours sincerely, Caleb Aragon MD, FACS, R.P.V.I.
[2020-12-02] MEDS: Clopidogrel Bisulfate 300 MG TABLET PO (09:43)
[2020-12-02] MEDS: Acetaminophen 325 MG TABLET 650 MG PO (09:43)
[2020-12-02] MEDS: oxyCODONE HCl Immed Release 5 MG TABLET PO (09:44)
[2020-12-02] MEDS: fentaNYL citrate/PF 100 MCG/2 ML VIAL 50 MCG IVPUSH (09:49)
[2020-12-02] MEDS: iohexoL 300 MG/ML 100 ML INFUS..BTL IV (09:53)
[2020-12-02] MEDS: iohexoL 300 MG/ML 50 ML INFUS..BTL IV (09:54)
== END 2020-12-02 13:10 | disposition home or self-care (01) ==
PROVIDERS: Visit Provider Surgery Vascular Surgery
DX: E11.51 Type 2 diabetes mellitus with diabetic peripheral angiopathy without gangrene (principal); I70.212 Atherosclerosis of native arteries of extremities with intermittent claudication, left leg; E11.622 Type 2 diabetes mellitus with other skin ulcer; L97.319 Non-pressure chronic ulcer of right ankle with unspecified severity; Z79.4 Long term (current) use of insulin
CPT/HCPCS: 36415; 37224; 76937; 80048; 82947; 85025; 85610; 85730; 99152; 99153; C1725; C1769; C1887; C2623; J2250; J3010; Q9967

== ENCOUNTER 2020-12-02 19:22 | Emergency (ER) | payer MEDICAID, SELFPAY ==
[2020-12-02 19:28] VITALS: BP 156/76; PULSE 90; O2SAT 100
[2020-12-02 19:46] VITALS: BP 97/53; PULSE 90; RESP 24; TEMP 36.3; O2SAT 100; BMI 29.2
[2020-12-02] MEDS: Ondansetron ODT 4 MG TAB.RAPDIS TRANSLINGU (19:52)
--- NOTE | 2020-12-02 20:50 | ED_ITS ---
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 Patient had a procedure in the morning in the right groin area ultrasound-guided aortogram with left lower extremities runoff done by Dr. Aragon, patient came back today for complaining of severe pain in the right groin area. The case discussed with Dr. Aragon reportedly no complication is expected after the procedure yes patient needs pain control, as recommended by Dr. Aragon to control pain and discharge home and his office will check with her in the morning. Related Data Home Medications Medication Instructions Recorded Confirmed metformin 1,000 mg tablet 1,000 mg PO BID 12/22/19 06/25/20 aspirin 81 mg tablet,delayed 81 mg PO DAILY 01/02/20 06/25/20 release (Adult Low Dose Aspirin) atorvastatin 80 mg tablet (Lipitor) 80 mg PO DAILY 01/02/20 06/25/20 carvedilol 25 mg tablet (Coreg) 25 mg PO BID 01/02/20 06/25/20 escitalopram oxalate 20 mg tablet 20 mg PO DAILY 01/02/20 06/25/20 (Lexapro) gabapentin 800 mg tablet 800 mg PO TID 01/02/20 06/25/20 insulin degludec 100 unit/mL (3 10 unit SUBCUT DAILY 01/02/20 06/25/20 mL) subcutaneous pen (Tresiba FlexTouch U-100 insulin) lisinopril 40 mg tablet 40 mg PO DAILY 01/02/20 06/25/20 mirtazapine 45 mg tablet 45 mg PO DAILY 01/02/20 06/25/20 multivitamin 1 tab PO DAILY 01/02/20 06/25/20 oxycodone 5 mg capsule 5 mg PO NEEDED PRN 01/02/20 06/25/20 Previous Rx's Medication Instructions Recorded ferrous sulfate 325 mg (65 mg 325 mg PO BID #60 tab 05/24/20 iron) tablet pantoprazole 40 mg tablet,delayed 40 mg PO DAILY #30 tab 05/24/20 release (Protonix) ciera #1 ea 05/24/20 blood sugar diagnostic (FreeStyle #100 ea 06/25/20 Lite Strips) blood-glucose meter (FreeStyle #1 ea 06/25/20 Lite Meter) dulaglutide 0.75 mg/0.5 mL 0.75 mg SUBCUT QWEEK 30 Days #2.5 06/25/20 subcutaneous pen injector ml (Trulicity) lancets 28 gauge (FreeStyle #100 ea 06/25/20 Lancets) cholecalciferol (vitamin D3) 50 50 mcg PO DAILY 30 Days #30 cap 08/12/20 mcg (2,000 unit) capsule hydrochlorothiazide 25 mg tablet 25 mg PO DAILY #30 tab 08/13/20 tramadol 50 mg tablet 50 mg PO Q6H PRN #20 tab 09/01/20 clopidogrel 75 mg tablet (Plavix) 75 mg PO DAILY #30 tab 12/02/20 pioglitazone 15 mg tablet 15 mg PO DAILY 30 Days #30 tab 12/02/20 Allergies Allergy/AdvReac Type Severity Reaction Status Date / Time latex [LATEX] Allergy Unknown RASH Verified 07/03/20 13:58 naproxen [From NAPROSYN] Allergy Unknown TACHYCARDIA Verified 07/03/20 13:58 Review of Systems Review of Systems: All other systems are reviewed and are negative Constitutional: Reports as per HPI and Reports no additional constitutional complaints Eyes: Reports as per HPI and Reports no additional eye complaints Reports system reviewed and no additional complaints, except as documented Cardiovascular: Reports as per HPI and Reports no additional cardiovascular complaints Respiratory: Reports as per HPI and Reports no additional respiratory complaints Gastrointestinal: Reports as per HPI and Reports no additional gastrointestinal complaints Genitourinary: Reports no additional female genitourinary complaints Musculoskeletal: Reports no additional musculoskeletal complaints Skin/Breast: Reports system reviewed and no additional complaints, except as docu Psychiatric: Reports no additional psychiatric complaints Endocrine: Reports no additional endocrine complaints Hematologic/Lymphatic: Reports no additional hematologic/lymphatic complaints Allergic/Immunologic: Reports no additional allergic/immunologic complaints Reports system reviewed and no additional complaints, except as documented and Reports Abnormal speech present [facility] Past Medical History Medical History Arthritis Asthma CAD (coronary artery disease) Cyst (solitary) of breast Diabetes H. pylori infection HLD (hyperlipidemia) HTN (hypertension) Kidney calculi T2DM (type 2 diabetes mellitus) Vitamin D deficiency Surgical History History of breast surgery History of cardiac cath History of coronary artery bypass graft History of esophagogastroduodenoscopy (EGD) Hx of colonoscopy Family History Family History Mother Diabetes Liver cancer Social History Social History Household Members: Spouse and Family Housing: Apartment Do you presently have visiting nurse or other home services: No Alcohol intake: current Alcohol intake frequency: does not drink Cigarettes Per Day: 2 Second Hand Smoke Exposure: No Advance Directives: No Advance Directives Information Provided: No Patient : No service: No Current occupational status: unemployed and disabled Physical Exam Vital Signs: Vital Signs: Last Vital Signs Temp 97.3 F 12/02/20 19:46 Pulse 90 12/02/20 19:46 Resp 24 H 12/02/20 19:46 BP 97/53 L 12/02/20 19:46 Pulse Ox 100 12/02/20 19:46 Body Mass Index 29.2 Vital signs have been reviewed as appeared to be correct. Blood pressure normal. Heart rate normal. Respiration rate normal. Temperature normal. Oxygen saturation normal. Appearance: Alert. Oriented X3. No acute distress. Head: Normal external exam. Normocephalic. Atraumatic. No Benitez signs noted. No raccoon eyes noted Eyes: PERRLA. EOMI. Conjunctiva and sclera normal. Eyelids normal. ENT: TM's Normal. Pharynx normal. Uvula midline. Moist mucous membranes. No trismus noted. No drooling noted. No muffled voice noted. Neck: Normal inspection. Neck supple. FROM. No adenopathy. Thyroid Normal. No meningeal signs. No neck mass noted. CVS: Normal heart rate and rhythm. Heart sound normal. No murmurs noted. Pulses normal throughout. Respiratory: No respiratory distress. Painless inspiration. Breath sounds normal. No wheezes/rales/rhonchi noted. Chest nontender. No accessory muscle usage noted or decreased air movement noted. Abdomen: Soft and nontender. Bowel sounds normal in all 4 quadrants. No distention noted. No organomegaly noted. No visible injury noted. Back: No CVA tenderness. Full range of motion noted. Skin: Skin warm and dry. Normal skin color. Normal skin turgor. No rashes/lesions/lacerations noted. Extremities: Right groin 5 x 7 cm area of ecchymosis, tenderness, no fluctuation, good femoral artery pulsation proximal and distal to the hematoma, right foot neurovascularly intact. With cap refill less than 2 seconds. Neuro: Oriented X 3. Cranial nerve exam: II-XII are grossly intact No motor deficit. No sensory deficit. Reflexes normal. Course Course Course Narrative: Assessment and plan. 59-year-old female status post vascular procedure to the right groin, case discussed with Dr. Aragon no complication is expected after the procedure, patient just needs pain control and go home and Dr. Aragon's office will follow-up with the patient in the morning. Neurovascular exam is intact proximal and distal to the hematoma, consider ultrasound of the hematoma make sure there is no p seudoaneurysm. Reevaluation(s) Reevaluation #1: Patient refuses ultrasound at this point, patient will follow tomorrow with the clinic. Time: 21:29 Discharge Plan Discharge Clinical Impression: Hematoma Patient Disposition: Home, Self-Care Instructions: Hematoma (ED) Prescriptions: No Action cholecalciferol (vitamin D3) 50 mcg (2,000 unit) capsule 50 mcg PO DAILY 30 Days Qty: 30 RF: 1 hydrochlorothiazide 25 mg tablet 25 mg PO DAILY Qty: 30 RF: 0 pioglitazone 15 mg tablet 15 mg PO DAILY 30 Days Qty: 30 RF: 11 tramadol 50 mg tablet 50 mg PO Q6H PRN (Reason: pain) Qty: 20 RF: 0 metformin 1,000 mg Tablet 1,000 mg PO BID RF: 0 (DME) ciera [facility] [place] See Rx Instructions .ROUTE .MEDSUPPLY Qty: 1 RF: 0 pantoprazole [Protonix] 40 mg tablet,delayed release (DR/EC) 40 mg PO DAILY Qty: 30 RF: 0 ferrous sulfate 325 mg (65 mg iron) tablet 325 mg PO BID Qty: 60 RF: 0 clopidogrel [Plavix] 75 mg tablet 75 mg PO DAILY Qty: 30 RF: 5 Trulicity 0.75 mg/0.5 mL pen injector 0.75 mg subcut QWEEK 30 Days Qty: 2.5 RF: 11 (DME) FreeStyle Lite Strips Strip See Rx Instructions .ROUTE .MEDSUPPLY Qty: 100 RF: 11 (DME) lancets [FreeStyle Lancets] 28 gauge misc See Rx Instructions .ROUTE .MEDSUPPLY Qty: 100 RF: 11 (DME) blood-glucose meter [FreeStyle Lite Meter] Kit See Rx Instructions .ROUTE .MEDSUPPLY Qty: 1 RF: 0 carvedilol [Coreg] 25 mg tablet 25 mg PO BID RF: 0 multivitamin Tablet 1 tab PO DAILY RF: 0 lisinopril 40 mg tablet 40 mg PO DAILY RF: 0 gabapentin 800 mg tablet 800 mg PO TID RF: 0 aspirin [Adult Low Dose Aspirin] 81 mg tablet,delayed release (DR/EC) 81 mg PO DAILY RF: 0 escitalopram oxalate [Lexapro] 20 mg tablet 20 mg PO DAILY RF: 0 mirtazapine 45 mg tablet 45 mg PO DAILY RF: 0 atorvastatin [Lipitor] 80 mg tablet 80 mg PO DAILY RF: 0 Tresiba FlexTouch U-100 100 unit/mL (3 mL) insulin pen 10 unit subcut DAILY RF: 0 oxycodone 5 mg capsule 5 mg PO NEEDED PRN (Reason: Pain) RF: 0 Referrals: Caleb Aragon MD [Physician] - 2 days
--- NOTE | 2020-12-02 20:54 | PC.NURSE ---
spoke with Nickie at the answering service for Dr Aragon. 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
--- NOTE | 2020-12-02 20:57 | PC.NURSE ---
Ondansetron administered prior to discontinuation of order- 4 mg translingual
[2020-12-02] MEDS: oxyCODONE HCl Immed Release 5 MG TABLET PO (21:09)
== END 2020-12-02 22:00 | disposition home or self-care (01) ==
PROVIDERS: Emergency Provider Emergency Medicine
DX: S30.1XXA Contusion of abdominal wall, initial encounter (principal); I10 Essential (primary) hypertension; E11.9 Type 2 diabetes mellitus without complications; I25.10 Atherosclerotic heart disease of native coronary artery without angina pectoris; J45.909 Unspecified asthma, uncomplicated; X58.XXXA Exposure to other specified factors, initial encounter; Y93.9 Activity, unspecified; Y92.9 Unspecified place or not applicable; Y99.9 Unspecified external cause status; Z98.890 Other specified postprocedural states
CPT/HCPCS: 99283

== ENCOUNTER → 2020-12-10 14:50 | Outpatient (BNVA) | payer MEDICAID, SELFPAY | PROVIDERS: PCP Family Medicine; Referring Provider Family Medicine; Visit Provider Internal Medicine Cardiovascular Disease | DX: I25.118 Atherosclerotic heart disease of native coronary artery with other forms of angina pectoris (principal); I65.21 Occlusion and stenosis of right carotid artery; I10 Essential (primary) hypertension; E11.9 Type 2 diabetes mellitus without complications; E78.5 Hyperlipidemia, unspecified; E55.9 Vitamin D deficiency, unspecified; N20.0 Calculus of kidney; I73.9 Peripheral vascular disease, unspecified; F17.210 Nicotine dependence, cigarettes, uncomplicated; Z98.890 Other specified postprocedural states; Z95.1 Presence of aortocoronary bypass graft; Z88.6 Allergy status to analgesic agent; Z91.040 Latex allergy status; Z79.4 Long term (current) use of insulin; Z79.84 Long term (current) use of oral hypoglycemic drugs; Z79.899 Other long term (current) drug therapy | CPT/HCPCS: 99212 ==

== ENCOUNTER → 2020-12-17 13:58 | Outpatient (BNVA) | payer MEDICAID, SELFPAY | PROVIDERS: PCP Family Medicine; Visit Provider Surgery Vascular Surgery | DX: I73.9 Peripheral vascular disease, unspecified (principal) | CPT/HCPCS: 99212 ==

== ENCOUNTER 2021-01-14 23:04 | Emergency (ER) | payer MEDICAID, SELFPAY ==
--- NOTE | ~2021-01-14 | XR_ITS ---
EXAMINATION: XR CHEST CLINICAL INFORMATION: Cough. COMPARISON: Multiple priors. Most recent chest radiograph dated from 05/08/2020. TECHNIQUE: PA view of the chest was obtained. FINDINGS: Normal cardiomediastinal silhouette. Mild interstitial prominence. No focal airspace opacities, pleural effusions or pneumothorax. No acute osseous findings. XR/XR chest 1V IMPRESSION: Mild interstitial prominence of uncertain etiology. Acutely, this could be seen with an infectious or inflammatory process of the small airways. No focal consolidation. Clear pleural spaces.
[2021-01-14 23:09] VITALS: BP 170/72; BP 199/84; PULSE 87; PULSE 94; RESP 18; TEMP 36.9; O2SAT 98; O2SAT 99; BMI 26.5
--- NOTE | 2021-01-14 23:18 | ED.URI ---
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 Mode of arrival: EMS Limitations: no limitations History of Present Illness MD elicited complaint: cough and nasal congestion Pertinent past history: asthma Onset (ago): week(s) (1) Consistency: intermittent Severity: moderate Description of mucous: clear Able to tolerate fluids by mouth: Yes Exacerbating factors: exertion Relieving factors: nothing Context: sick contacts ( had cold) Associated symptoms: headache, rhinorrhea and cough Treatments prior to arrival: none Related Data Home Medications Medication Instructions Recorded Confirmed metformin 1,000 mg tablet 1,000 mg PO BID 12/22/19 12/10/20 aspirin 81 mg tablet,delayed 81 mg PO DAILY 01/02/20 12/10/20 release (Adult Low Dose Aspirin) atorvastatin 80 mg tablet (Lipitor) 80 mg PO DAILY 01/02/20 12/10/20 carvedilol 25 mg tablet (Coreg) 25 mg PO BID 01/02/20 12/10/20 escitalopram oxalate 20 mg tablet 20 mg PO DAILY 01/02/20 12/10/20 (Lexapro) gabapentin 800 mg tablet 800 mg PO TID 01/02/20 12/10/20 insulin degludec 100 unit/mL (3 10 unit SUBCUT DAILY 01/02/20 12/10/20 mL) subcutaneous pen (Tresiba FlexTouch U-100 insulin) lisinopril 40 mg tablet 40 mg PO DAILY 01/02/20 12/10/20 mirtazapine 45 mg tablet 45 mg PO DAILY 01/02/20 12/10/20 multivitamin 1 tab PO DAILY 01/02/20 12/10/20 oxycodone 5 mg capsule 5 mg PO NEEDED PRN 01/02/20 12/10/20 Previous Rx's Medication Instructions Recorded ferrous sulfate 325 mg (65 mg 325 mg PO BID #60 tab 05/24/20 iron) tablet pantoprazole 40 mg tablet,delayed 40 mg PO DAILY #30 tab 05/24/20 release (Protonix) ciera #1 ea 05/24/20 blood sugar diagnostic (FreeStyle #100 ea 06/25/20 Lite Strips) blood-glucose meter (FreeStyle #1 ea 06/25/20 Lite Meter) dulaglutide 0.75 mg/0.5 mL 0.75 mg (0.5 mL) SUBCUT QWEEK 30 06/25/20 subcutaneous pen injector Days #2.5 ml (Trulicity) lancets 28 gauge (FreeStyle #100 ea 06/25/20 Lancets) cholecalciferol (vitamin D3) 50 50 mcg PO DAILY 30 Days #30 cap 08/12/20 mcg (2,000 unit) capsule hydrochlorothiazide 25 mg tablet 25 mg PO DAILY #30 tab 08/13/20 tramadol 50 mg tablet 50 mg PO Q6H PRN #20 tab 09/01/20 clopidogrel 75 mg tablet (Plavix) 75 mg PO DAILY #30 tab 12/02/20 pioglitazone 15 mg tablet 15 mg PO DAILY 30 Days #30 tab 12/02/20 azithromycin 250 mg tablet See Rx Instructions .ROUTE 01/15/21 .COMPLEX #6 tab prednisone 20 mg tablet 40 mg PO DAILY 4 Days #8 tab 01/15/21 Allergies Allergy/AdvReac Type Severity Reaction Status Date / Time latex [LATEX] Allergy Unknown RASH Verified 12/17/20 14:04 naproxen [From NAPROSYN] Allergy Unknown TACHYCARDIA Verified 12/17/20 14:04 Review of Systems Review of Systems: Constitutional : No Fever, No Chills ENT/Mouth : No Hoarseness, No sore throat, pos Rhinorrhea Eyes: No Redness, No Discharge, No Vision Changes Cardiovascular : No Chest Pain, positive SOB, no Dyspnea on Exertion, No Edema Respiratory : positive Cough, No Sputum, positive Wheezing, Gastrointestinal : No Nausea, No Vomiting, No Diarrhea, No abdominal Pain Genitourinary : No Dysuria, No Hematuria Musculoskeletal : No joint pain, No Myalgias Skin : No rash Neuro : No Weakness, No Numbness, pos Headache Psych : No anxiety, depression Heme/Lymph: No Bruising, No Bleeding Endocrine : No Polyuria, No Polydipsia All other systems reviewed and are negative [facility] Past Medical History Attestation statement: The following information was validated with the patient. Medical History Arthritis Asthma CAD (coronary artery disease) Cyst (solitary) of breast Diabetes H. pylori infection HLD (hyperlipidemia) HTN (hypertension) Kidney calculi T2DM (type 2 diabetes mellitus) Vitamin D deficiency Surgical History History of breast surgery History of cardiac cath History of coronary artery bypass graft History of esophagogastroduodenoscopy (EGD) Hx of colonoscopy Family History Family History Mother Diabetes Liver cancer Social History Social History Household Members: Spouse and Family Housing: Apartment Do you presently have visiting nurse or other home services: No Alcohol intake: never Patient Tobacco Use Status: Current everyday Tobacco user Cigarettes Per Day: 2 Years Smoked: 40 +/- Second Hand Smoke Exposure: No Use of substances other than those prescribed or required for medical reasons: No Advance Directives: No Advance Directives Information Provided: No service: No Current occupational status: unemployed and disabled Physical Exam Vital Signs: Vital Signs: Last Vital Signs Temp 98.2 F 01/15/21 00:56 Pulse 80 01/15/21 00:56 Resp 20 01/15/21 00:56 BP 146/74 H 01/15/21 00:56 Pulse Ox 98 01/15/21 00:56 BMI result Body Mass Index 26.5 Appearance: Alert. Oriented X3. No acute distress. Eyes: Pupils equal, round and reactive to light. ENT: Pharynx normal. Neck: Normal inspection. Neck supple. CVS: Normal heart rate and rhythm. Pulses normal. Respiratory: No respiratory distress. Breath sounds diminished with rhonchi Abdomen: Soft and nontender. Skin: Skin warm and dry. Normal skin color. Normal skin turgor. Extremities: No lower extremity edema. No calf ttp Neuro: Oriented X 3. No motor deficit. No sensory deficit. Course Course Course Narrative: no hypoxia, stable for DC home will treat as bronchitis MDM - URI/Sore Throat MDM Narrative Medical decision making narrative: 60 yo female with DM, asthma, HLD, anemia, HTN here with c/o cough and congestion she is vaccinated had a negative COVID test yesterday no hypoxia - at this time CXR, FLU/RSV/COVID ordered. ALbuterol and PO prednisone ordered, suspect bronchitis her O2 level is 98%. Lab Data Labs: Lab Results 01/14/21 01/14/21 Range/Units 23:19 23:25 POC Glucose 334 H (60-115) mg/dL Influenza Type A (PCR) NEGATIVE (Negative) Influenza Type B (PCR) NEGATIVE (Negative) RSV RNA Qual (PCR) NEGATIVE (Negative) SARS-CoV-2 RNA (RT-PCR) NEGATIVE (Negative) Discharge Plan Discharge Clinical Impression: Bronchitis Patient Disposition: Home, Self-Care Instructions: Acute Bronchitis (ED) Additional Instructions: return to ED for any worsening symptoms or concerns NEGATIVE COVID/FLU/RSV Prescriptions: New prednisone 20 mg tablet 40 mg PO DAILY 4 Days Qty: 8 RF: 0 azithromycin 250 mg tablet See Rx Instructions .ROUTE .COMPLEX Qty: 6 RF: 0 No Action cholecalciferol (vitamin D3) 50 mcg (2,000 unit) capsule 50 mcg PO DAILY 30 Days Qty: 30 RF: 1 hydrochlorothiazide 25 mg tablet 25 mg PO DAILY Qty: 30 RF: 0 pioglitazone 15 mg tablet 15 mg PO DAILY 30 Days Qty: 30 RF: 11 tramadol 50 mg tablet 50 mg PO Q6H PRN (Reason: pain) Qty: 20 RF: 0 metformin 1,000 mg Tablet 1,000 mg PO BID RF: 0 (DME) walker Misc See Rx Instructions .ROUTE .MEDSUPPLY Qty: 1 RF: 0 pantoprazole [Protonix] 40 mg tablet,delayed release (DR/EC) 40 mg PO DAILY Qty: 30 RF: 0 ferrous sulfate 325 mg (65 mg iron) tablet 325 mg PO BID Qty: 60 RF: 0 clopidogrel [Plavix] 75 mg tablet 75 mg PO DAILY Qty: 30 RF: 5 Trulicity 0.75 mg/0.5 mL pen injector 0.75 mg subcut QWEEK 30 Days Qty: 2.5 RF: 11 (DME) FreeStyle Lite Strips Strip See Rx Instructions .ROUTE .MEDSUPPLY Qty: 100 RF: 11 (DME) lancets [FreeStyle Lancets] 28 gauge misc See Rx Instructions .ROUTE .MEDSUPPLY Qty: 100 RF: 11 (DME) blood-glucose meter [FreeStyle Lite Meter] Kit See Rx Instructions .ROUTE .MEDSUPPLY Qty: 1 RF: 0 carvedilol [Coreg] 25 mg tablet 25 mg PO BID RF: 0 multivitamin Tablet 1 tab PO DAILY RF: 0 lisinopril 40 mg tablet 40 mg PO DAILY RF: 0 gabapentin 800 mg tablet 800 mg PO TID RF: 0 aspirin [Adult Low Dose Aspirin] 81 mg tablet,delayed release (DR/EC) 81 mg PO DAILY RF: 0 escitalopram oxalate [Lexapro] 20 mg tablet 20 mg PO DAILY RF: 0 mirtazapine 45 mg tablet 45 mg PO DAILY RF: 0 atorvastatin [Lipitor] 80 mg tablet 80 mg PO DAILY RF: 0 Tresiba FlexTouch U-100 100 unit/mL (3 mL) insulin pen 10 unit subcut DAILY RF: 0 oxycodone 5 mg capsule 5 mg PO NEEDED PRN (Reason: Pain) RF: 0 Referrals: Jacinto Yusuf MD [Primary Care Provider] - 2 days (IF NOT BETTER) Print Language: Chinese
[2021-01-14] MEDS: predniSONE 20 MG TABLET 40 MG PO (23:22)
[2021-01-14] MEDS: HYDROcodone/Homat 5/1.5/5 ML 5 ML SYRUP PO (23:23)
[2021-01-14] MEDS: Albuterol Sulfate (0.083%) 2.5 MG/3 ML VIAL.NEB INHALE (23:30)
[2021-01-14 23:31] VITALS: PULSE 82; O2SAT 96
[2021-01-14 23:31] LABS: Glucose, Whole Blood 334 mg/dL (60-115)
[2021-01-15 00:11] LABS: Influenza A PCR NEGATIVE (Negative); Influenza B PCR NEGATIVE (Negative); Resp Syncy Virus RNA Qual PCR NEGATIVE (Negative); SARS COV2 PCR INHOUSE NEGATIVE (Negative)
[2021-01-15 00:56] VITALS: BP 146/74; PULSE 80; RESP 20; TEMP 36.8; O2SAT 98
== END 2021-01-15 02:00 | disposition home or self-care (01) ==
PROVIDERS: Emergency Provider Emergency Medicine; PCP Internal Medicine
DX: J40 Bronchitis, not specified as acute or chronic (principal); Z20.822 Contact with and (suspected) exposure to COVID-19; R51.9 Headache, unspecified; I10 Essential (primary) hypertension; E11.9 Type 2 diabetes mellitus without complications; E78.5 Hyperlipidemia, unspecified; F17.200 Nicotine dependence, unspecified, uncomplicated; Z79.82 Long term (current) use of aspirin; Z79.02 Long term (current) use of antithrombotics/antiplatelets; Z79.4 Long term (current) use of insulin; Z79.899 Other long term (current) drug therapy
CPT/HCPCS: 0241U; 36415; 71045; 82947; 94640; 99284

== ENCOUNTER 2021-01-16 00:03 | Inpatient (IN) | payer MEDICAID, SELFPAY ==
[2021-01-16] VITALS (14 sets, daily range): BP systolic 131–240; BP diastolic 47–109; PULSE 66–114; RESP 16–20; TEMP 36.4–37.1; O2SAT 96–99; BMI 25.6
--- NOTE | ~2021-01-16 | XR_ITS ---
EXAMINATION: XR CHEST CLINICAL INFORMATION: Cough COMPARISON: 01.15.2021 TECHNIQUE: Frontal view of the chest was obtained. FINDINGS: No significant abnormality is noted involving the heart, lungs, mediastinum, bony thorax or soft tissues. XR/XR chest 1V IMPRESSION: Unremarkable examination.
--- NOTE | ~2021-01-16 | CT_ITS ---
EXAMINATION: CT ANGIOGRAM OF THE CHEST WITH AND WITHOUT CONTRAST (CT PULMONARY ANGIOGRAM FOR PE) CLINICAL INFORMATION: Reason for Exam chest pain dyspnea COMPARISON: 01/20/2020 TECHNIQUE: Prior to contrast administration, noncontrast localization images were obtained. Subsequently, multidetector volumetric imaging was performed from the thoracic inlet to below the diaphragms following the administration of 60 mL Omnipaque 350 intravenous contrast. No contrast reaction reported Sagittal, coronal, and MIP oblique sagittal reformatted images were obtained on the CT workstation, uploaded to PACS, and reviewed. This CT examination was performed using dose optimization techniques as appropriate, variously including the following: *Automated exposure control *Adjustment of mA and/or kV according to patient size (this includes techniques or standardized protocols for targeted exams where dose is matched to indication/reason for exam; i.e. extremities or head) *Use of iterative reconstruction technique Total exam dose-length product 366 mGy-cm FINDINGS: QUALITY OF STUDY/CONTRAST BOLUS: Satisfactory. PULMONARY ARTERIES: No central or segmental pulmonary emboli. THORACIC AORTA: No aneurysm or dissection. LUNG: No focal consolidation, noncalcified nodules or masses. Calcified granuloma, left lower lobe. PLEURA: No pleural effusion or pneumothorax. MEDIASTINUM: Normal heart size. No pericardial effusion. No hilar or mediastinal lymphadenopathy. No evidence of septal bowing or right heart strain. CHEST WALL/AXILLA: No axillary or internal mammary lymphadenopathy. OSSEOUS STRUCTURES: No acute or suspicious osseous abnormality. UPPER ABDOMEN: Small moderate hiatal hernia. No reflux of contrast into the hepatic veins to suggest elevated right heart pressures. CT/CT angio chest PE protocol IMPRESSION: No pulmonary embolism. No aortic aneurysm or dissection. VTE: negative
--- NOTE | 2021-01-16 00:21 | ECG_ITS ---
Test Reason : HYPERTENSION Blood Pressure : / mmHG Vent. Rate : 109 BPM Atrial Rate : 109 BPM P-R Int : 132 ms QRS Dur : 078 ms QT Int : 342 ms P-R-T Axes : 037 -10 055 degrees QTc Int : 460 ms Sinus tachycardia Minimal voltage criteria for LVH, may be normal variant ( R in aVL ) Nonspecific ST abnormality Abnormal ECG When compared with ECG of 01-SEP-2020 21:01, No significant change was found Referred By: Jenifer Reed Electronically Signed By:JM DU
--- NOTE | 2021-01-16 00:24 | ED.CHESTPAIN ---
HPI - Chest Pain General Chief Complaint: Chest Pain Stated Complaint: SOB 96%RA, HTN 220/100 Time Seen by Provider: 01/16/21 00:14 Source: patient, EMS, old records reviewed and family dentist Mode of arrival: EMS Limitations: no limitations History of Present Illness HPI narrative: seen yesterday - CXR negative PCR covid negative was sick x 1 week dx with COVID sent home on steroids and zpak comes back today c/o around 5pm feeling more short of breath after taking prednisone it seems her cough worsened her BP went high she had a headache and chest pain. called 911 after waiting more than 5 hours after she reminded her son she didn't feel well. Took one neb at home today. Did fill and take her prednisone and azithromycin for bronchitis dx yesterday. MD complaint: chest pain (HTN, cough, dyspnea) Onset: during rest Pain location: substernal Pain radiation: none Severity: moderate Quality: heaviness Relieving factors: nothing Exacerbating factors: other (coughing) Context: recent illness (dx with bronchitis yesterday has had URI x 1 week) Associated symptoms: dyspnea and other (headache, cough) Treatment prior to arrival: other (prednisone, azithromycin) Related Data Home Medications Medication Instructions Recorded Confirmed metformin 1,000 mg tablet 1,000 mg PO BID 12/22/19 12/10/20 aspirin 81 mg tablet,delayed 81 mg PO DAILY 01/02/20 12/10/20 release (Adult Low Dose Aspirin) atorvastatin 80 mg tablet (Lipitor) 80 mg PO DAILY 01/02/20 12/10/20 carvedilol 25 mg tablet (Coreg) 25 mg PO BID 01/02/20 12/10/20 escitalopram oxalate 20 mg tablet 20 mg PO DAILY 01/02/20 12/10/20 (Lexapro) gabapentin 800 mg tablet 800 mg PO TID 01/02/20 12/10/20 insulin degludec 100 unit/mL (3 10 unit SUBCUT DAILY 01/02/20 12/10/20 mL) subcutaneous pen (Tresiba FlexTouch U-100 insulin) lisinopril 40 mg tablet 40 mg PO DAILY 01/02/20 12/10/20 mirtazapine 45 mg tablet 45 mg PO DAILY 01/02/20 12/10/20 multivitamin 1 tab PO DAILY 01/02/20 12/10/20 oxycodone 5 mg capsule 5 mg PO NEEDED PRN 01/02/20 12/10/20 Previous Rx's Medication Instructions Recorded ferrous sulfate 325 mg (65 mg 325 mg PO BID #60 tab 05/24/20 iron) tablet pantoprazole 40 mg tablet,delayed 40 mg PO DAILY #30 tab 05/24/20 release (Protonix) walker #1 ea 05/24/20 blood sugar diagnostic (FreeStyle #100 ea 06/25/20 Lite Strips) blood-glucose meter (FreeStyle #1 ea 06/25/20 Lite Meter) dulaglutide 0.75 mg/0.5 mL 0.75 mg (0.5 mL) SUBCUT QWEEK 30 06/25/20 subcutaneous pen injector Days #2.5 ml (Trulicity) lancets 28 gauge (FreeStyle #100 ea 06/25/20 Lancets) cholecalciferol (vitamin D3) 50 50 mcg PO DAILY 30 Days #30 cap 08/12/20 mcg (2,000 unit) capsule hydrochlorothiazide 25 mg tablet 25 mg PO DAILY #30 tab 08/13/20 tramadol 50 mg tablet 50 mg PO Q6H PRN #20 tab 09/01/20 clopidogrel 75 mg tablet (Plavix) 75 mg PO DAILY #30 tab 12/02/20 pioglitazone 15 mg tablet 15 mg PO DAILY 30 Days #30 tab 12/02/20 azithromycin 250 mg tablet See Rx Instructions .ROUTE 01/15/21 .COMPLEX #6 tab prednisone 20 mg tablet 40 mg PO DAILY 4 Days #8 tab 01/15/21 Allergies Allergy/AdvReac Type Severity Reaction Status Date / Time latex [LATEX] Allergy Unknown RASH Verified 12/17/20 14:04 naproxen [From NAPROSYN] Allergy Unknown TACHYCARDIA Verified 12/17/20 14:04 Review of Systems Review of Systems: Constitutional : No Weight loss, No Fever, No Chills ENT/Mouth : No sore throat, No Rhinorrhea Eyes: No Eye Pain, No Swelling Cardiovascular : pos Chest Pain, pos SOB, pos Dyspnea on Exertion, No Orthopnea, No Edema, No Palpitations Respiratory : pos Cough, No Sputum Gastrointestinal : pos Nausea, No Vomiting, No Diarrhea, No abdominal Pain, No Hematochezia, No Melena Genitourinary : No Dysuria, No Urinary Frequency Musculoskeletal : No joint pain, No Myalgias, No Joint Swelling Skin : No Skin Lesions, No rash Neuro : No Weakness, No Numbness, No Dizziness, pos Headache Psych : No Anxiety/Panic, No Depression Heme/Lymph: No Bruising, No Lymphadenopathy Endocrine : No Polyuria, No Polydipsia All other systems reviewed and are negative [facility] Past Medical History Attestation statement: The following information was validated with the patient. Medical History Arthritis Asthma CAD (coronary artery disease) Cyst (solitary) of breast Diabetes H. pylori infection HLD (hyperlipidemia) HTN (hypertension) Kidney calculi T2DM (type 2 diabetes mellitus) Vitamin D deficiency Surgical History History of breast surgery History of cardiac cath History of coronary artery bypass graft History of esophagogastroduodenoscopy (EGD) Hx of colonoscopy Family History Family History Mother Diabetes Liver cancer Social History Social History Household Members: Spouse and Family Housing: Apartment Do you presently have visiting nurse or other home services: No Alcohol intake: never Patient Tobacco Use Status: Current everyday Tobacco user Cigarettes Per Day: 2 Years Smoked: 40 +/- Second Hand Smoke Exposure: No Advance Directives: No Advance Directives Information Provided: Yes service: No Current occupational status: unemployed and disabled Physical Exam Vital Signs: Vital Signs: Last Vital Signs Temp 98.7 F 01/16/21 00:12 Pulse 92 01/16/21 04:54 Resp 18 01/16/21 04:54 BP 159/72 H 01/16/21 04:54 Pulse Ox 96 01/16/21 04:54 BMI result Body Mass Index 25.6 Appearance: Alert. Oriented X3. No acute distress. Eyes: Pupils equal, round and reactive to light. ENT: Pharynx normal. Neck: Normal inspection. Neck supple. CVS: Normal heart rate and rhythm. Pulses normal. Respiratory: No respiratory distress. Breath sounds normal. diffuse wheezing and rhonchi noted throughout Skin: Skin warm and dry. Normal skin color. Normal skin turgor. Extremities: No lower extremity edema. No calf ttp Neuro: Oriented X 3. No motor deficit. No sensory deficit. Course Course Course Narrative: BP coming down nicely without BP medications neg PE study troponin repeat 230 - chest pain resolved VS drastically improved no medications given for BP trop elevated but likely demand from HTN, will continue to trend she is sleeping c/o headache IV morphine ordered. lungs are CTAB and O2 sat > 95% remains chest pain free, troponin did increase - repeat EKG ordered, patient had to be woken up, PO aspirin ordered will admit for further management at this time suspect related to uncontrolled HTN patient initially didn't want to stay since she feels much better but agrees after discussing BP and troponin MDM - Chest Pain MDM Narrative Medical decision making narrative: 60 yo female with hx of HTN, CAD< DM, bronchitis, asthma here with c/o URI x 1 week seen yesterday dx with bronchitis sent home with steroids and azithromycin which she took today - she reports today worsening dyspnea, high blood pressure despite taking all of her medications, chest pressure particularly worse with coughing. At this time labs, troponin, ddimer, CXR< 5mg neb for wheezing, already had steroids today, anti tussive if no response to those treatments in BP will give IV hydralazine Lab Data Result diagrams: 01/16/21 00:26 01/16/21 00:26 Labs: Lab Results 01/16/21 01/16/21 01/16/21 Range/Units 00:26 00:26 00:26 WBC 8.8 (4.8-10.8) X10*3/uL RBC 3.83 L (4.20-5.50) X10*6/uL Hgb 11.4 L (12.0-16.0) g/dl Hct 34.5 L (37.0-47.0) % MCV 90.1 (80.0-98.0) fL MCH 29.8 (27.0-33.0) pg MCHC 33.0 (31.0-35.0) g/dl RDW 13.4 (11.0-16.0) % Plt Count 318 (160-400) X10*3/uL MPV 9.1 L (9.4-12.3) fL Immature Gran % (Auto) 0.5 H (0.0-0.4) % Neut % (Auto) 86.2 H (45-73) % Lymph % (Auto) 10.9 L (20-40) % Martin % (Auto) 2.2 (2-11) % Eos % (Auto) 0.1 (0-4) % Baso % (Auto) 0.1 (0-2) % Lymph # (Auto) 1.0 L (1.2-4.9) X10*3/uL Martin # (Auto) 0.2 (0.1-1.2) X10*3/uL Eos # (Auto) 0.0 (0.0-0.4) X10*3/uL Baso # (Auto) 0.0 (0.0-0.2) X10*3/uL Abs Immat Gran (auto) 0.04 H (0.00-0.03) X10*3/uL Absolute Neuts (auto) 7.6 (2.0-8.3) x10*3/uL Absolute Nucleated RBC 0.000 (0.0-0.012) X10*3/uL Nucleated RBC % (auto) 0.0 (0.0-0.2) /100WBC D-Dimer High Sensitivty 274 NG/ML Sodium 135 (135-145) mmol/L Potassium 4.4 (3.3-5.1) mmol/L Chloride 99 (96-108) mmol/L Carbon Dioxide 22 (22-29) mmol/L Anion Gap 18 (12-20) BUN 19 H (9-16) mg/dL Creatinine 1.05 (0.5-1.4) mg/dL Estim Creat Clear Calc 50.5 Estimated GFR 54 Random Glucose 439 H* (60-115) mg/dL Calcium 9.7 (8.4-10.2) mg/dL Magnesium 1.7 (1.6-2.6) mg/dL Total Bilirubin 0.4 (0.0-1.0) mg/dL Direct Bilirubin 0.2 (0.0-0.5) mg/dL AST 11 (5-31) U/L ALT 10 (0-31) U/L Alkaline Phosphatase 93 (39-117) U/L Troponin I High Sens (<3.5-17.0) ng/L Total Protein 7.3 (6.5-8.0) g/dL Albumin 4.2 (3.5-5.0) g/dL 01/16/21 01/16/21 01/16/21 Range/Units 00:26 02:37 05:23 WBC (4.8-10.8) X10*3/uL RBC (4.20-5.50) X10*6/uL Hgb (12.0-16.0) g/dl Hct (37.0-47.0) % MCV (80.0-98.0) fL MCH (27.0-33.0) pg MCHC (31.0-35.0) g/dl RDW (11.0-16.0) % Plt Count (160-400) X10*3/uL MPV (9.4-12.3) fL Immature Gran % (Auto) (0.0-0.4) % Neut % (Auto) (45-73) % Lymph % (Auto) (20-40) % Martin % (Auto) (2-11) % Eos % (Auto) (0-4) % Baso % (Auto) (0-2) % Lymph # (Auto) (1.2-4.9) X10*3/uL Martin # (Auto) (0.1-1.2) X10*3/uL Eos # (Auto) (0.0-0.4) X10*3/uL Baso # (Auto) (0.0-0.2) X10*3/uL Abs Immat Gran (auto) (0.00-0.03) X10*3/uL Absolute Neuts (auto) (2.0-8.3) x10*3/uL Absolute Nucleated RBC (0.0-0.012) X10*3/uL Nucleated RBC % (auto) (0.0-0.2) /100WBC D-Dimer High Sensitivty NG/ML Sodium (135-145) mmol/L Potassium (3.3-5.1) mmol/L Chloride (96-108) mmol/L Carbon Dioxide (22-29) mmol/L Anion Gap (12-20) BUN (9-16) mg/dL Creatinine (0.5-1.4) mg/dL Estim Creat Clear Calc Estimated GFR Random Glucose (60-115) mg/dL Calcium (8.4-10.2) mg/dL Magnesium (1.6-2.6) mg/dL Total Bilirubin (0.0-1.0) mg/dL Direct Bilirubin (0.0-0.5) mg/dL AST (5-31) U/L ALT (0-31) U/L Alkaline Phosphatase (39-117) U/L Troponin I High Sens 6.3 23.4 H D 288.2 H* D (<3.5-17.0) ng/L Total Protein (6.5-8.0) g/dL Albumin (3.5-5.0) g/dL ECG Data ECG #1: Attestation: I personally reviewed and interpreted this ECG as follows: ECG interpretation date: 01/16/21 ECG interpretation time: 01:14 Interpretation: Rate: 109 Rhythm: sinus tachycardia Katy: left, LVH Normal P waves. Normal GRETCHEN. Normal QRS complex. ST T wave : no ANGI nonspecific changes in V5-V6 qTC: normal prior studies: more pronounced subtle depressions in V5-V6 changes seen on EKG Jan 2020 The study has been interpreted contemporaneously by me. EKG #2 Rate: 92 Rhythm: NSR Katy: left LVH Normal P waves. Normal GRETCHEN. Normal QRS complex. ST T wave : nonspecific in lateral leads some very slight depression V5-V6 no ANGI qTC: normal prior studies: no change from first EKG changes seen Jan 2020 The study has been interpreted contemporaneously by me. . Discharge Plan Discharge Clinical Impression: Bronchitis, HTN (hypertension), Chest pain, Hyperglycemia, Elevated troponin Patient Disposition: Admitted As Inpatient Prescriptions: No Action cholecalciferol (vitamin D3) 50 mcg (2,000 unit) capsule 50 mcg PO DAILY 30 Days Qty: 30 RF: 1 hydrochlorothiazide 25 mg tablet 25 mg PO DAILY Qty: 30 RF: 0 pioglitazone 15 mg tablet 15 mg PO DAILY 30 Days Qty: 30 RF: 11 tramadol 50 mg tablet 50 mg PO Q6H PRN (Reason: pain) Qty: 20 RF: 0 metformin 1,000 mg Tablet 1,000 mg PO BID RF: 0 (DME) walker Misc See Rx Instructions .ROUTE .MEDSUPPLY Qty: 1 RF: 0 pantoprazole [Protonix] 40 mg tablet,delayed release (DR/EC) 40 mg PO DAILY Qty: 30 RF: 0 ferrous sulfate 325 mg (65 mg iron) tablet 325 mg PO BID Qty: 60 RF: 0 clopidogrel [Plavix] 75 mg tablet 75 mg PO DAILY Qty: 30 RF: 5 prednisone 20 mg tablet 40 mg PO DAILY 4 Days Qty: 8 RF: 0 azithromycin 250 mg tablet See Rx Instructions .ROUTE .COMPLEX Qty: 6 RF: 0 Trulicity 0.75 mg/0.5 mL pen injector 0.75 mg subcut QWEEK 30 Days Qty: 2.5 RF: 11 (DME) FreeStyle Lite Strips Strip See Rx Instructions .ROUTE .MEDSUPPLY Qty: 100 RF: 11 (DME) lancets [FreeStyle Lancets] 28 gauge misc See Rx Instructions .ROUTE .MEDSUPPLY Qty: 100 RF: 11 (DME) blood-glucose meter [FreeStyle Lite Meter] Kit See Rx Instructions .ROUTE .MEDSUPPLY Qty: 1 RF: 0 carvedilol [Coreg] 25 mg tablet 25 mg PO BID RF: 0 multivitamin Tablet 1 tab PO DAILY RF: 0 lisinopril 40 mg tablet 40 mg PO DAILY RF: 0 gabapentin 800 mg tablet 800 mg PO TID RF: 0 aspirin [Adult Low Dose Aspirin] 81 mg tablet,delayed release (DR/EC) 81 mg PO DAILY RF: 0 escitalopram oxalate [Lexapro] 20 mg tablet 20 mg PO DAILY RF: 0 mirtazapine 45 mg tablet 45 mg PO DAILY RF: 0 atorvastatin [Lipitor] 80 mg tablet 80 mg PO DAILY RF: 0 Tresiba FlexTouch U-100 100 unit/mL (3 mL) insulin pen 10 unit subcut DAILY RF: 0 oxycodone 5 mg capsule 5 mg PO NEEDED PRN (Reason: Pain) RF: 0
[2021-01-16] MEDS: HYDROcodone/Homat 5/1.5/5 ML 5 ML SYRUP PO (00:29)
[2021-01-16 00:32] LABS: Basophils Percent Auto 0.1 % (0-2); Eosinophils Percent Auto 0.1 % (0-4); Hematocrit 34.5 % (37.0-47.0); Hemoglobin 11.4 g/dl (12.0-16.0); Imm Gran Abs Auto 0.04 X10*3/uL (0.00-0.03); Imm Gran Pct Auto 0.5 % (0.0-0.4); Lymphocytes Percent Auto 10.9 % (20-40); MANUAL DIFF FLAG NO; Mean Corpuscular Hemoglobin 29.8 pg (27.0-33.0); Mean Corpuscular Volume 90.1 fL (80.0-98.0); Mean Platelet Volume 9.1 fL (9.4-12.3); Monocytes Absolute Auto 0.2 X10*3/uL (0.1-1.2); Monocytes Percent Auto 2.2 % (2-11); Neutrophils Absolute Auto 7.6 x10*3/uL (2.0-8.3); Neutrophils Percent Auto 86.2 % (45-73); Platelet Count 318 X10*3/uL (160-400); Red Blood Count 3.83 X10*6/uL (4.20-5.50); Red Cell Distribution Width 13.4 % (11.0-16.0); White Blood Count 8.8 X10*3/uL (4.8-10.8)
[2021-01-16] MEDS: Albuterol Sulfate (0.083%) 2.5 MG/3 ML VIAL.NEB 5 MG INHALE (00:35)
[2021-01-16 00:46] LABS: D Dimer High Sensitivity 274 NG/ML
[2021-01-16 00:54] LABS: Troponin-I High Sensitivity 6.3 ng/L (<3.5-17.0)
[2021-01-16 00:58] LABS: Alanine Aminotransferase 10 U/L (0-31); Albumin Level 4.2 g/dL (3.5-5.0); Alkaline Phosphatase 93 U/L (39-117); Anion Gap 18 (12-20); Aspartate Amino Transferase 11 U/L (5-31); Bilirubin Direct 0.2 mg/dL (0.0-0.5); Bilirubin Total 0.4 mg/dL (0.0-1.0); Blood Urea Nitrogen 19 mg/dL (9-16); Calcium 9.7 mg/dL (8.4-10.2); Carbon Dioxide 22 mmol/L (22-29); Chloride 99 mmol/L (96-108); Creatinine Clr Calc Pharmacy 50.5; Estimated Glomerular Filt Rate 54; Glucose Random 439 mg/dL (60-115); Magnesium 1.7 mg/dL (1.6-2.6); Potassium 4.4 mmol/L (3.3-5.1); Sodium 135 mmol/L (135-145); Total Protein 7.3 g/dL (6.5-8.0)
[2021-01-16] MEDS: Insulin Regular, Human 100 UNIT/ML 3 ML VIAL IVPUSH (01:58)
[2021-01-16] MEDS: iohexoL 350 MG/ML 100 ML INFUS..BTL 60 ML IV (02:03)
[2021-01-16 03:02] LABS: Troponin-I High Sensitivity 23.4 ng/L (<3.5-17.0)
[2021-01-16] MEDS: Morphine Sulfate 4 MG/ML CARTRIDGE IVPUSH (03:17)
[2021-01-16 05:57] LABS: Troponin-I High Sensitivity 288.2 ng/L (<3.5-17.0)
--- NOTE | 2021-01-16 06:01 | ECG_ITS ---
Test Reason : ELEVATED TROP Blood Pressure : / mmHG Vent. Rate : 092 BPM Atrial Rate : 092 BPM P-R Int : 130 ms QRS Dur : 090 ms QT Int : 352 ms P-R-T Axes : 028 -09 022 degrees QTc Int : 435 ms Normal sinus rhythm Moderate voltage criteria for LVH, may be normal variant ( R in aVL , [place] product ) Nonspecific ST and T wave abnormality Abnormal ECG When compared with ECG of 16-JAN-2021 01:05, No significant change was found Referred By: Jenifer Reed Electronically Signed By:JM DU
[2021-01-16] MEDS: Acetaminophen 325 MG TABLET 650 MG PO ×2 (06:06→11:59)
[2021-01-16] MEDS: Aspirin 81 MG TAB.CHEW 324 MG PO (06:07)
[2021-01-16 06:45] LABS: Glucose, Whole Blood 354 mg/dL (60-115)
--- NOTE | 2021-01-16 08:11 | PHA.MEDREC ---
MED REC COMPLETE, BASED OFF OF PHARMACY MED BOX FILL HISTORY Pharmacy Consult ? Medication Reconciliation Pharmacy has completed the medication reconciliation.
--- NOTE | 2021-01-16 10:23 | P.CONCA_ITS ---
History of Present Illness History of Present Illness Date of Service: 01/16/21 Chief complaint: SOB 96%RA, HTN 220/100 Narrative: This is a cardiology consultation regarding elevated troponins. This is a patient of . Based on his last office note patient has a history of hypertension coronary disease. She has moderate right coronary artery stenosis but negative on physiological assessment. She also has vascular disease in the lower extremities. Also a smoker and last was just just within the week. Current admission is mainly for bronchitis type symptoms. She also describes some chest tightness in this setting but not clear if that is anginal or chest part of the same bronchitis. COVID screen is so far negative. Troponins were checked and they were high and hence we have been asked to see her. Otherwise patient seems fairly comfortable without any acute symptoms at this time. Review of Systems Review of Systems: Yes all other systems are reviewed and are negative Cardiovascular: Cardiovascular: Reports as per HPI, Reports no additional cardiovascular complaints, Denies acrocyanosis, Denies cool extremities, Denies painful fingertips, Reports chest pain at rest, Denies diaphoresis, Denies syncope, Denies irregular heart rhythm, Denies claudication, Denies leg edema, Denies lightheadedness, Denies palpitations and Reports dyspnea Respiratory: Respiratory: Reports dyspnea Neurologic: Denies syncope Endocrine: Endocrine: Denies palpitations [facility] Past Medical History Medical History Arthritis Asthma CAD (coronary artery disease) Cyst (solitary) of breast Diabetes H. pylori infection HLD (hyperlipidemia) HTN (hypertension) Kidney calculi T2DM (type 2 diabetes mellitus) Vitamin D deficiency Family History Family History Mother Diabetes Liver cancer Surgical History Surgical History History of breast surgery History of cardiac cath History of coronary artery bypass graft History of esophagogastroduodenoscopy (EGD) Hx of colonoscopy Social History Social History Household Members: Spouse and Family Housing: Apartment Do you presently have visiting nurse or other home services: No Alcohol intake: never Patient Tobacco Use Status: Current everyday Tobacco user Cigarettes Per Day: 2 Years Smoked: 40 +/- Second Hand Smoke Exposure: No Advance Directives: No Advance Directives Information Provided: Yes service: No Current occupational status: unemployed and disabled Meds Allergies Allergy/AdvReac Type Severity Reaction Status Date / Time latex [LATEX] Allergy Unknown RASH Verified 12/17/20 14:04 naproxen [From NAPROSYN] Allergy Unknown TACHYCARDIA Verified 12/17/20 14:04 Active Medications: Current Medications Albuterol Sulfate (Albuterol Sulfate (0.083%) 2.5 Mg/3 Ml Vial.Neb) 2.5 mg INHALE Q2H PRN PRN Reason: shortness of breath/wheeze Albuterol/Ipratropium (Albuterol/Iprat 2.5/0.5mg 3 Ml Ampul.Neb) 3 ml INHALE RQ4H WHILE AWAKE [facility] Amlodipine Besylate (Amlodipine Besylate 10 Mg Tablet) 10 mg PO DAILY [facility]; Protocol Aspirin (Aspirin Enteric Coated 81 Mg Tablet.) 81 mg PO DAILY [facility] Atorvastatin Calcium (Atorvastatin Calcium 80 Mg Tablet) 80 mg PO DAILY [facility] Carvedilol (Carvedilol 25 Mg Tablet) 25 mg PO BID [facility]; Protocol Clopidogrel Bisulfate (Clopidogrel Bisulfate 75 Mg Tablet) 75 mg PO DAILY [facility] Dextrose (Dextrose 50 % 25 Gm/50 Ml Vial) 25 gm IVPUSH Q15M PRN; Protocol PRN Reason: per Hypoglycemia Standing Ord. Docusate Sodium (Docusate Sodium 100 Mg Capsule) 100 mg PO BID [facility] Escitalopram Oxalate (Escitalopram Oxalate 20 Mg Tablet) 20 mg PO DAILY [facility] Ferrous Sulfate (Ferrous Sulfate 324 Mg Tablet.) 324 mg PO BID [facility] Fluticasone Propionate (Fluticasone Propionate Nasal 16 Gm [place]) 2 spray NOSTRIL-B DAILY [facility] Fluticasone Propionate (Fluticasone Propionate 100 Mcg Blst.W.Dev) 2 puff INHALE RBID [facility] Gabapentin (Gabapentin 400 Mg Capsule) 800 mg PO TID [facility] Glucose (Glucose Gel 15 Gm Gel..Gram.) 15 gm PO Q15M PRN; Protocol PRN Reason: per Hypoglycemia Standing Ord. Heparin Sodium (Porcine) (Heparin Sodium,Porcine 5,000 Unit/Ml Vial) 2,500 unit 40 unit/kg (2500 unit) IVPUSH PROTOCOL BOLUS PRN; Protocol PRN Reason: 40 unit/kg - Heparin Protocol Heparin Sodium (Porcine) (Heparin Sodium,Porcine 5,000 Unit/Ml Vial) 5,100 unit 80 unit/kg (5100 unit) IVPUSH PROTOCOL BOLUS PRN; Protocol PRN Reason: 80 unit/kg - Heparin Protocol Hydralazine HCl (Hydralazine Hcl 50 Mg Tablet) 50 mg PO TID [facility]; Protocol Heparin Sodium/Sodium Chloride () 25,000 unit in 250 mls @ 0 mls/hr IVCONT .Q0M [facility]; Protocol Insulin Human Lispro (Insulin Lispro 100 Unit/Ml 3 Ml Vial) 0 unit SUBCUT QIDACHS [facility]; Protocol Lisinopril (Lisinopril 40 Mg Tablet) 40 mg PO DAILY [facility]; Protocol Mirtazapine (Mirtazapine 15 Mg Tablet) 45 mg PO BEDTIME [facility] Multivitamins/Vitamin C (Multivitamin Tablet) 1 tab PO DAILY [facility] Omeprazole (Omeprazole 20 Mg Capsule.Dr) 20 mg PO BID@0630,1630 [facility] Oxycodone HCl (Oxycodone Hcl Immed Release 5 Mg Tablet) 5 mg PO Q6H PRN PRN Reason: Pain (Scale Score 7-10) Pharmacy Consult (Consult Rx Perform Med Rec) 1 each MISCELLANE ONCE PRN PRN Reason: Consult order Prednisone (Prednisone 20 Mg Tablet) 40 mg PO DAILY [facility] Home Medications Medication Instructions Recorded Confirmed Last Taken Type metformin 1,000 mg tablet 1,000 mg PO BID 12/22/19 01/16/21 01/15/21 History aspirin 81 mg tablet,delayed 81 mg PO DAILY 01/02/20 01/16/21 01/15/21 History release (Adult Low Dose Aspirin) atorvastatin 80 mg tablet (Lipitor) 80 mg PO DAILY 01/02/20 01/16/21 01/15/21 History carvedilol 25 mg tablet (Coreg) 25 mg PO BID 01/02/20 01/16/21 01/15/21 History escitalopram oxalate 20 mg tablet 20 mg PO DAILY 01/02/20 01/16/21 01/15/21 History (Lexapro) gabapentin 800 mg tablet 800 mg PO TID 01/02/20 01/16/21 01/15/21 History insulin degludec 100 unit/mL (3 10 unit SUBCUT DAILY 01/02/20 01/16/21 01/15/21 History mL) subcutaneous pen (Tresiba FlexTouch U-100 insulin) lisinopril 40 mg tablet 40 mg PO DAILY 01/02/20 01/16/21 01/15/21 History mirtazapine 45 mg tablet 45 mg PO BEDTIME 01/02/20 01/16/21 05/08/20 08:00 History multivitamin 1 tab PO DAILY 01/02/20 01/16/21 01/15/21 History acetaminophen 650 mg 650 mg PO Q8H PRN 01/16/21 01/16/21 Unknown History tablet,extended release (Arthritis Pain Relief (acetaminophen) ER) amlodipine 10 mg tablet 10 mg PO DAILY 01/16/21 01/16/21 Unknown History docusate sodium 100 mg capsule 100 mg PO BID 01/16/21 01/16/21 Unknown History fluticasone propionate 110 2 puff INHALATION BID 01/16/21 01/16/21 Unknown History mcg/actuation HFA aerosol inhaler (Flovent HFA) fluticasone propionate 50 2 spray INTRANASAL DAILY 01/16/21 01/16/21 Unknown History mcg/actuation nasal spray,suspension hydralazine 50 mg tablet 50 mg PO TID 01/16/21 01/16/21 Unknown History lidocaine 5 % topical patch 1 patch TOPICAL DAILY 01/16/21 01/16/21 Unknown History (Lidoderm) oxycodone 5 mg tablet 5 mg PO Q6H PRN 01/16/21 01/16/21 Unknown History pantoprazole 40 mg tablet,delayed 40 mg PO BID 01/16/21 01/16/21 Unknown History release (Protonix) Physical Exam Vital Signs: Vital Signs: Last Vital Signs Temp 98.7 F 01/16/21 00:12 Pulse 94 01/16/21 09:55 Resp 18 01/16/21 09:55 BP 178/85 H 01/16/21 09:55 Pulse Ox 96 01/16/21 04:54 BMI result Body Mass Index 25.6 Objective Labs and Meds Result diagrams: 01/16/21 00:26 01/16/21 00:26 Lab results: Laboratory Results - last 24 hr 01/16/21 01/16/21 01/16/21 00:26 00:26 00:26 WBC 8.8 RBC 3.83 L Hgb 11.4 L Hct 34.5 L MCV 90.1 MCH 29.8 MCHC 33.0 RDW 13.4 Plt Count 318 MPV 9.1 L Immature Gran % (Auto) 0.5 H Neut % (Auto) 86.2 H Lymph % (Auto) 10.9 L [place] % (Auto) 2.2 Eos % (Auto) 0.1 Baso % (Auto) 0.1 Lymph # (Auto) 1.0 L [place] # (Auto) 0.2 Eos # (Auto) 0.0 Baso # (Auto) 0.0 Abs Immat Gran (auto) 0.04 H Absolute Neuts (auto) 7.6 Absolute Nucleated RBC 0.000 Nucleated RBC % (auto) 0.0 D-Dimer High Sensitivty 274 Sodium 135 Potassium 4.4 Chloride 99 Carbon Dioxide 22 Anion Gap 18 BUN 19 H Creatinine 1.05 Estim Creat Clear Calc 50.5 Estimated GFR 54 POC Glucose Random Glucose 439 H* Calcium 9.7 Magnesium 1.7 Total Bilirubin 0.4 Direct Bilirubin 0.2 AST 11 ALT 10 Alkaline Phosphatase 93 Troponin I High Sens Total Protein 7.3 Albumin 4.2 01/16/21 01/16/21 01/16/21 00:26 02:37 05:23 WBC RBC Hgb Hct MCV MCH MCHC RDW Plt Count MPV Immature Gran % (Auto) Neut % (Auto) Lymph % (Auto) [place] % (Auto) Eos % (Auto) Baso % (Auto) Lymph # (Auto) [place] # (Auto) Eos # (Auto) Baso # (Auto) Abs Immat Gran (auto) Absolute Neuts (auto) Absolute Nucleated RBC Nucleated RBC % (auto) D-Dimer High Sensitivty Sodium Potassium Chloride Carbon Dioxide Anion Gap BUN Creatinine Estim Creat Clear Calc Estimated GFR POC Glucose Random Glucose Calcium Magnesium Total Bilirubin Direct Bilirubin AST ALT Alkaline Phosphatase Troponin I High Sens 6.3 23.4 H D 288.2 H* D Total Protein Albumin 01/16/21 06:42 WBC RBC Hgb Hct MCV MCH MCHC RDW Plt Count MPV Immature Gran % (Auto) Neut % (Auto) Lymph % (Auto) [place] % (Auto) Eos % (Auto) Baso % (Auto) Lymph # (Auto) [place] # (Auto) Eos # (Auto) Baso # (Auto) Abs Immat Gran (auto) Absolute Neuts (auto) Absolute Nucleated RBC Nucleated RBC % (auto) D-Dimer High Sensitivty Sodium Potassium Chloride Carbon Dioxide Anion Gap BUN Creatinine Estim Creat Clear Calc Estimated GFR POC Glucose 354 H* Random Glucose Calcium Magnesium Total Bilirubin Direct Bilirubin AST ALT Alkaline Phosphatase Troponin I High Sens Total Protein Albumin ECG Interpretation: EKG shows sinus rhythm at 92/Min with nonspecific ST-T changes. Imaging Radiologist's impression: Impressions Chest X-Ray 01/16/21 01:33 IMPRESSION: Unremarkable examination. Chest CTA 01/16/21 02:00 IMPRESSION: No pulmonary embolism. No aortic aneurysm or dissection. VTE: negative Assessment and Plan (1) NSTEMI (non-ST elevated myocardial infarction): Status: Acute (2) Hypertensive emergency: Status: Acute Blood pressure upon arrival was markedly 240/109 mm Hg. Most recent blood pressure is 198/87 mm Hg. Creatinine is 1.05. Blood sugar is quite high at 439 and 354. High sensitive troponins are 23 followed by 288. Chest CT scan has been reported as no pulmonary embolism aortic aneurysm or dissection. At this time we can treat her for hypertensive emergency and NSTEMI. Based on home meds, she is on amlodipine 10 mg daily, Coreg 25 b.i.d., lisinopril 40 daily hydralazine 50 t.i.d. and hydrochlorothiazide 25 daily. We will need to resume these medications and most likely go up on the hydralazine dosing. Otherwise IV heparin drip. Aspirin, high-dose statins. Echocardiogram Monday. Will follow up with you. Patient was asking to go home but I specifically discussed with her about NSTEMI and implications. Also discussed risk of complications from [place] including . She needs to stay in the hospital for medical treatment. She understands. Procedures Date of Service Date of Service: 01/16/21
[2021-01-16 10:25] LABS: Hematocrit 35.5 % (37.0-47.0); Hemoglobin 11.4 g/dl (12.0-16.0); Mean Corpuscular HGB Conc 32.1 g/dl (31.0-35.0); Mean Corpuscular Hemoglobin 29.3 pg (27.0-33.0); Mean Corpuscular Volume 91.3 fL (80.0-98.0); Mean Platelet Volume 9.2 fL (9.4-12.3); Platelet Count 336 X10*3/uL (160-400); Red Blood Count 3.89 X10*6/uL (4.20-5.50); Red Cell Distribution Width 13.7 % (11.0-16.0); White Blood Count 10.2 X10*3/uL (4.8-10.8)
[2021-01-16] MEDS: Gabapentin 400 MG CAPSULE 800 MG PO ×3 (10:25→21:03)
[2021-01-16] MEDS: amLODIPine Besylate 10 MG TABLET PO (10:26)
[2021-01-16] MEDS: Multivitamin TABLET 1 TAB PO (10:26)
[2021-01-16] MEDS: Clopidogrel Bisulfate 75 MG TABLET PO (10:26)
[2021-01-16] MEDS: Escitalopram Oxalate 20 MG TABLET PO (10:26)
[2021-01-16] MEDS: Docusate Sodium 100 MG CAPSULE PO ×2 (10:26→21:03)
[2021-01-16] MEDS: lisinopriL 40 MG TABLET PO (10:26)
[2021-01-16] MEDS: Atorvastatin Calcium 80 MG TABLET PO (10:26)
[2021-01-16] MEDS: Aspirin Enteric Coated 81 MG TABLET.DR PO (10:26)
[2021-01-16] MEDS: carvediloL 25 MG TABLET PO ×2 (10:27→21:04)
[2021-01-16] MEDS: hydrALAZINE HCl 50 MG TABLET PO (10:27)
--- NOTE | 2021-01-16 10:27 | P.HPHOSP_ITS ---
History of Present Illness Date of Service: 01/16/21 Chief Complaint: chest pain Ms Casanova is a 60 year-old woman with DM2 complicated by neuropathy and osteomyelitis, PAD s/p left femoral-popliteal bypass then angioplasty of left profundus femoris and left popliteal artery, CAD with 60-70% RCA stenosis, HTN, and asthma who was evaluated in the [facility] ED on 01/14/21 with a 1 week history of cough productive of clear sputum. COVID-19 PCR was negative and she was discharged home with azithromycin and prednisone. However, yesterday around 17:00, while she was cooking some plantains, she had the acute onset of severe non-radiating chest pressure associated with dyspnea and headache. No diaphoresis. She called EMS after 5 hours without improving and arrived in the ED hypertensive to 240/109, which improved quickly without intervention; currently 178/85. CTA was negative for PE. EKG showed subtle lateral [V5-V6] ST depressions. Troponin-I was 6.3, then 23.4 after 2 hours, then 288.2 after 5 hours. Chest pain resolved completely to the point where she wanted to leave the hospital. Her SaO2 was normal. Currently denies dyspnea and states the cough is much better. Review of Systems Review of Systems: Yes all other systems are reviewed and are negative [facility] Medical History Arthritis Asthma CAD (coronary artery disease) Cyst (solitary) of breast Diabetes H. pylori infection HLD (hyperlipidemia) HTN (hypertension) Kidney calculi T2DM (type 2 diabetes mellitus) Vitamin D deficiency Family History Mother Diabetes Liver cancer Surgical History History of breast surgery History of cardiac cath History of coronary artery bypass graft History of esophagogastroduodenoscopy (EGD) Hx of colonoscopy Social History Household Members: Spouse and Family Housing: Apartment Do you presently have visiting nurse or other home services: No Alcohol intake: never Patient Tobacco Use Status: Current everyday Tobacco user Cigarettes Per Day: 2 Years Smoked: 40 +/- Second Hand Smoke Exposure: No Advance Directives: No Advance Directives Information Provided: Yes service: No Current occupational status: unemployed and disabled Meds Allergies Allergy/AdvReac Type Severity Reaction Status Date / Time latex [LATEX] Allergy Unknown RASH Verified 12/17/20 14:04 naproxen [From NAPROSYN] Allergy Unknown TACHYCARDIA Verified 12/17/20 14:04 Active Medications: Current Medications Acetaminophen (Acetaminophen 325 Mg Tablet) 650 mg PO Q6H PRN PRN Reason: Pain, Mild (Pain Scale 1-3) Albuterol Sulfate (Albuterol Sulfate (0.083%) 2.5 Mg/3 Ml Vial.Neb) 2.5 mg INHALE Q2H PRN PRN Reason: shortness of breath/wheeze Albuterol/Ipratropium (Albuterol/Iprat 2.5/0.5mg 3 Ml Ampul.Neb) 3 ml INHALE RQ4H WHILE AWAKE [facility] Amlodipine Besylate (Amlodipine Besylate 10 Mg Tablet) 10 mg PO DAILY [facility]; Protocol Aspirin (Aspirin Enteric Coated 81 Mg Tablet.) 81 mg PO DAILY [facility] Atorvastatin Calcium (Atorvastatin Calcium 80 Mg Tablet) 80 mg PO DAILY [facility] Carvedilol (Carvedilol 25 Mg Tablet) 25 mg PO BID [facility]; Protocol Clopidogrel Bisulfate (Clopidogrel Bisulfate 75 Mg Tablet) 75 mg PO DAILY [facility] Dextrose (Dextrose 50 % 25 Gm/50 Ml Vial) 25 gm IVPUSH Q15M PRN; Protocol PRN Reason: per Hypoglycemia Standing Ord. Docusate Sodium (Docusate Sodium 100 Mg Capsule) 100 mg PO BID [facility] Escitalopram Oxalate (Escitalopram Oxalate 20 Mg Tablet) 20 mg PO DAILY [facility] Ferrous Sulfate (Ferrous Sulfate 324 Mg Tablet.) 324 mg PO BID [facility] Fluticasone Propionate (Fluticasone Propionate Nasal 16 Gm [place]) 2 spray NOSTRIL-B DAILY [facility] Fluticasone Propionate (Fluticasone Propionate 100 Mcg Blst.W.Dev) 2 puff INHALE RBID [facility] Gabapentin (Gabapentin 400 Mg Capsule) 800 mg PO TID [facility] Glucose (Glucose Gel 15 Gm Gel..Gram.) 15 gm PO Q15M PRN; Protocol PRN Reason: per Hypoglycemia Standing Ord. Heparin Sodium (Porcine) (Heparin Sodium,Porcine 5,000 Unit/Ml Vial) 2,500 unit 40 unit/kg (2500 unit) IVPUSH PROTOCOL BOLUS PRN; Protocol PRN Reason: 40 unit/kg - Heparin Protocol Heparin Sodium (Porcine) (Heparin Sodium,Porcine 5,000 Unit/Ml Vial) 5,100 unit 80 unit/kg (5100 unit) IVPUSH PROTOCOL BOLUS PRN; Protocol PRN Reason: 80 unit/kg - Heparin Protocol Hydralazine HCl (Hydralazine Hcl 50 Mg Tablet) 50 mg PO TID [facility]; Protocol Heparin Sodium/Sodium Chloride () 25,000 unit in 250 mls @ 0 mls/hr IVCONT .Q0M [facility]; Protocol Insulin Human Lispro (Insulin Lispro 100 Unit/Ml 3 Ml Vial) 0 unit SUBCUT QIDACHS [facility]; Protocol Lisinopril (Lisinopril 40 Mg Tablet) 40 mg PO DAILY [facility]; Protocol Mirtazapine (Mirtazapine 15 Mg Tablet) 45 mg PO BEDTIME [facility] Multivitamins/Vitamin C (Multivitamin Tablet) 1 tab PO DAILY [facility] Omeprazole (Omeprazole 20 Mg Capsule.Dr) 20 mg PO BID@0630,1630 [facility] Ondansetron HCl (Ondansetron Hcl 4 Mg/2 Ml Vial) 4 mg IVPUSH Q8H PRN PRN Reason: Nausea and Vomiting Oxycodone HCl (Oxycodone Hcl Immed Release 5 Mg Tablet) 5 mg PO Q6H PRN PRN Reason: Pain (Scale Score 7-10) Pharmacy Consult (Consult Rx Perform Med Rec) 1 each MISCELLANE ONCE PRN PRN Reason: Consult order Prednisone (Prednisone 20 Mg Tablet) 40 mg PO DAILY [facility] Sodium Chloride (0.9 % Sodium Chloride Flush 3 Ml Syringe) 3 ml IVFLUSH QSHIFT [facility] Home Medications Medication Instructions Recorded Confirmed Last Taken Type metformin 1,000 mg tablet 1,000 mg PO BID 12/22/19 01/16/21 01/15/21 History aspirin 81 mg tablet,delayed 81 mg PO DAILY 01/02/20 01/16/21 01/15/21 History release (Adult Low Dose Aspirin) atorvastatin 80 mg tablet (Lipitor) 80 mg PO DAILY 01/02/20 01/16/21 01/15/21 History carvedilol 25 mg tablet (Coreg) 25 mg PO BID 01/02/20 01/16/21 01/15/21 History escitalopram oxalate 20 mg tablet 20 mg PO DAILY 11/01/16/21 01/15/21 History (Lexapro) gabapentin 800 mg tablet 800 mg PO TID 01/02/20 01/16/21 01/15/21 History insulin degludec 100 unit/mL (3 10 unit SUBCUT DAILY 01/02/20 01/16/21 01/15/21 History mL) subcutaneous pen (Tresiba FlexTouch U-100 insulin) lisinopril 40 mg tablet 40 mg PO DAILY 01/02/20 01/16/21 01/15/21 History mirtazapine 45 mg tablet 45 mg PO BEDTIME 01/02/20 01/16/21 05/08/20 08:00 History multivitamin 1 tab PO DAILY 01/02/20 01/16/21 01/15/21 History acetaminophen 650 mg 650 mg PO Q8H PRN 01/16/21 01/16/21 Unknown History tablet,extended release (Arthritis Pain Relief (acetaminophen) ER) amlodipine 10 mg tablet 10 mg PO DAILY 01/16/21 01/16/21 Unknown History docusate sodium 100 mg capsule 100 mg PO BID 01/16/21 01/16/21 Unknown History fluticasone propionate 110 2 puff INHALATION BID 01/16/21 01/16/21 Unknown History mcg/actuation HFA aerosol inhaler (Flovent HFA) fluticasone propionate 50 2 spray INTRANASAL DAILY 01/16/21 01/16/21 Unknown History mcg/actuation nasal spray,suspension hydralazine 50 mg tablet 50 mg PO TID 01/16/21 01/16/21 Unknown History lidocaine 5 % topical patch 1 patch TOPICAL DAILY 01/16/21 01/16/21 Unknown History (Lidoderm) oxycodone 5 mg tablet 5 mg PO Q6H PRN 01/16/21 01/16/21 Unknown History pantoprazole 40 mg tablet,delayed 40 mg PO BID 01/16/21 01/16/21 Unknown History release (Protonix) Physical Exam Vital Signs and Narrative: Vital Signs: Last Vital Signs Temp 98.7 F 01/16/21 00:12 Pulse 94 01/16/21 09:55 Resp 18 01/16/21 09:55 BP 178/85 H 01/16/21 09:55 Pulse Ox 96 01/16/21 04:54 BMI result Body Mass Index 25.6 Gen: in no acute distress HEENT: sclera anicteric, moist mucus membranes Neck: supple Lungs: clear to auscultation bilaterally Heart: regular rate and rhythm, no murmurs Abd: soft, non-tender, non-distended Ext: no edema Skin: warm/well-perfused Neuro: alert and oriented x3, no focal findings Psych: appropriate affect Results Labs CBC and Chem 7: 01/16/21 10:06 01/16/21 00:26 Labs: Laboratory Results - last 24 hr 01/16/21 01/16/21 01/16/21 00:26 00:26 00:26 MCV 90.1 MCH 29.8 MCHC 33.0 RDW 13.4 Plt Count 318 MPV 9.1 L Immature Gran % (Auto) 0.5 H Neut % (Auto) 86.2 H Lymph % (Auto) 10.9 L [place] % (Auto) 2.2 Eos % (Auto) 0.1 Baso % (Auto) 0.1 Lymph # (Auto) 1.0 L [place] # (Auto) 0.2 Eos # (Auto) 0.0 Baso # (Auto) 0.0 Abs Immat Gran (auto) 0.04 H Absolute Neuts (auto) 7.6 Absolute Nucleated RBC 0.000 Nucleated RBC % (auto) 0.0 D-Dimer High Sensitivty 274 Anion Gap 18 Estim Creat Clear Calc 50.5 Estimated GFR 54 POC Glucose Random Glucose 439 H* Calcium 9.7 Magnesium 1.7 Total Bilirubin 0.4 Direct Bilirubin 0.2 AST 11 ALT 10 Alkaline Phosphatase 93 Troponin I High Sens Total Protein 7.3 Albumin 4.2 01/16/21 01/16/21 01/16/21 00:26 02:37 05:23 MCV MCH MCHC RDW Plt Count MPV Immature Gran % (Auto) Neut % (Auto) Lymph % (Auto) [place] % (Auto) Eos % (Auto) Baso % (Auto) Lymph # (Auto) [place] # (Auto) Eos # (Auto) Baso # (Auto) Abs Immat Gran (auto) Absolute Neuts (auto) Absolute Nucleated RBC Nucleated RBC % (auto) D-Dimer High Sensitivty Anion Gap Estim Creat Clear Calc Estimated GFR POC Glucose Random Glucose Calcium Magnesium Total Bilirubin Direct Bilirubin AST ALT Alkaline Phosphatase Troponin I High Sens 6.3 23.4 H D 288.2 H* D Total Protein Albumin 01/16/21 01/16/21 06:42 10:06 MCV 91.3 MCH 29.3 MCHC 32.1 RDW 13.7 Plt Count 336 MPV 9.2 L Immature Gran % (Auto) Neut % (Auto) Lymph % (Auto) [place] % (Auto) Eos % (Auto) Baso % (Auto) Lymph # (Auto) [place] # (Auto) Eos # (Auto) Baso # (Auto) Abs Immat Gran (auto) Absolute Neuts (auto) Absolute Nucleated RBC 0.000 Nucleated RBC % (auto) 0.0 D-Dimer High Sensitivty Anion Gap Estim Creat Clear Calc Estimated GFR POC Glucose 354 H* Random Glucose Calcium Magnesium Total Bilirubin Direct Bilirubin AST ALT Alkaline Phosphatase Troponin I High Sens Total Protein Albumin Imaging Radiologist's Impressions: Impressions Chest X-Ray 01/16/21 01:33 IMPRESSION: Unremarkable examination. Chest CTA 01/16/21 02:00 IMPRESSION: No pulmonary embolism. No aortic aneurysm or dissection. VTE: negative Assessment and Plan (1) Hypertensive emergency: Status: Acute (2) NSTEMI (non-ST elevated myocardial infarction): Status: Acute 60yo with DM2, PAD, CAD, HTN, and asthma currently on prednisone and azithromycin for bronchitis presenting with acute onset of anginal-type chest pain associated with uncontrolled hypertension. # NSTEMI - admit to [facility] on telemetry, give IV heparin, prn NTG/morphine, consult Cardiology, continue DAPT + B-anni, obtain TTE # HTN emergency - resolving, resume home medications and titrate as needed [amlodipine, carvedilol, hydralazine, lisinopril] # bronchitis # acute exacerbation of mild persistent asthma - continue prednisone burst, d/c azithromycin, standing/prn nebs # PAD - continue statin + DAPT # DM2 with hyperglycemia - basal/bolus insulin, check A1c [last 9.5 06/25/20] # neuropathy - gabapentin # mood disorder - continue mirtazapine + escitalopram # VTE ppx - on UFH # code - full Quality Stroke Does the patient have a stroke diagnosis?: No VTE Prior VTE?: No VTE Risk Level:: Medical - moderate - high VTE Device Contraindication: N/A - Device Ordered VTE Drug Contraindication: N/A - Med Ordered
[2021-01-16 10:31] LABS: Prothrombin Time 11.3 SEC (9.9-13.0)
[2021-01-16 10:33] LABS: PTT Heparin Drip 36.2 SEC (53-77.9)
[2021-01-16] MEDS: Albuterol/Iprat 2.5/0.5MG 3 ML AMPUL.NEB INHALE ×2 (11:20→19:48)
[2021-01-16] MEDS: Heparin Sodium,Porcine 5,000 UNIT/ML VIAL 3800 UNIT IVPUSH (11:39)
[2021-01-16] MEDS: Heparin Sodium,Porcine/1/2NS 25,000 UNIT/250 ML IV.SOLN 7.62 UNIT IVCONT (11:39)
--- NOTE | 2021-01-16 11:44 | PC.NURSE ---
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
[2021-01-16 11:54] LABS: Glucose, Whole Blood 367 mg/dL (60-115)
[2021-01-16] MEDS: oxyCODONE HCl Immed Release 5 MG TABLET PO (12:00)
[2021-01-16] MEDS: Insulin Glargine,Hum.rec.anlog 100 UNIT/ML 10 ML VIAL 10 UNIT SUBCUT (12:00)
[2021-01-16] MEDS: Insulin Lispro 100 UNIT/ML 3 ML VIAL SUBCUT (13:32)
--- NOTE | 2021-01-16 14:05 | PC.NURSE ---
covid swab performed, pt encouraged to eat sandwich and take po.
[2021-01-16 14:22] LABS: COVID-19 Test Negative (Negative)
[2021-01-16] MEDS: Omeprazole 20 MG CAPSULE.DR PO (15:44)
[2021-01-16] MEDS: hydrALAZINE HCl 25 MG TABLET 75 MG PO (15:44)
[2021-01-16 18:08] LABS: PTT Heparin Drip 84.8 SEC (53-77.9)
[2021-01-16 18:25] LABS: Glucose, Whole Blood 131 mg/dL (60-115)
--- NOTE | 2021-01-16 18:29 | PC.NURSE ---
patient a&ox3, heparin drip running per order, pt refusing dinner, will notify provider poc 131
--- NOTE | 2021-01-16 18:52 | PC.NURSE ---
patient a&ox3, pt refusing dinner, held insuling, Dr. Lim notified, will continue to monitor.
--- NOTE | 2021-01-16 19:24 | PC.NURSE ---
pts heparin drip titrated down to 10/hr, repeat ptt to be drawn at 2345.
[2021-01-16] MEDS: Mirtazapine 15 MG TABLET 45 MG PO (21:04)
[2021-01-16] MEDS: Ferrous Sulfate 324 MG TABLET.DR PO (21:04)
--- NOTE | 2021-01-16 21:06 | PC.NURSE ---
patient a&ox3, heparin drip continues at 10, cardiac rn nsr 70s, vitals have remained stable, pt insulin held per order, pt refused dinner she was offered a snack later in the shift which she refused as well, will continue to monitor.
[2021-01-16 21:10] LABS: Glucose, Whole Blood 129 mg/dL (60-115)
--- NOTE | 2021-01-16 22:08 | PC.NURSE ---
called pharmacy for missing med
[2021-01-17] VITALS (14 sets, daily range): BP systolic 100–146; BP diastolic 50–66; PULSE 63–75; RESP 15–20; TEMP 36.1–37.6; O2SAT 95–98
[2021-01-17] MEDS: hydrALAZINE HCl 25 MG TABLET 75 MG PO ×4 (01:07→20:38)
[2021-01-17] MEDS: Omeprazole 20 MG CAPSULE.DR PO ×2 (06:40→17:19)
[2021-01-17 07:16] LABS: Glucose, Whole Blood 191 mg/dL (60-115)
[2021-01-17 07:36] LABS: Hematocrit 34.3 % (37.0-47.0); Hemoglobin 11.1 g/dl (12.0-16.0); Mean Corpuscular HGB Conc 32.4 g/dl (31.0-35.0); Mean Corpuscular Hemoglobin 29.5 pg (27.0-33.0); Mean Corpuscular Volume 91.2 fL (80.0-98.0); Mean Platelet Volume 9.1 fL (9.4-12.3); Platelet Count 299 X10*3/uL (160-400); Red Blood Count 3.76 X10*6/uL (4.20-5.50); Red Cell Distribution Width 13.8 % (11.0-16.0); White Blood Count 9.2 X10*3/uL (4.8-10.8)
[2021-01-17] MEDS: Insulin Lispro 100 UNIT/ML 3 ML VIAL SUBCUT ×3 (07:39→20:46)
[2021-01-17 07:41] LABS: Prothrombin Time 11.5 SEC (9.9-13.0)
[2021-01-17 07:44] LABS: PTT Heparin Drip 51.1 SEC (53-77.9)
[2021-01-17] MEDS: Insulin Glargine,Hum.rec.anlog 100 UNIT/ML 10 ML VIAL 10 UNIT SUBCUT (07:54)
[2021-01-17] MEDS: oxyCODONE HCl Immed Release 5 MG TABLET PO ×2 (07:54→20:40)
[2021-01-17] MEDS: lisinopriL 40 MG TABLET PO (07:55)
[2021-01-17] MEDS: Multivitamin TABLET 1 TAB PO (07:57)
[2021-01-17] MEDS: Clopidogrel Bisulfate 75 MG TABLET PO (07:57)
[2021-01-17] MEDS: Atorvastatin Calcium 80 MG TABLET PO (07:57)
[2021-01-17] MEDS: Gabapentin 400 MG CAPSULE 800 MG PO ×3 (07:57→20:37)
[2021-01-17] MEDS: Docusate Sodium 100 MG CAPSULE PO ×2 (07:58→20:37)
[2021-01-17] MEDS: Escitalopram Oxalate 20 MG TABLET PO (07:58)
[2021-01-17] MEDS: Aspirin Enteric Coated 81 MG TABLET.DR PO (07:59)
[2021-01-17] MEDS: Ferrous Sulfate 324 MG TABLET.DR PO ×2 (07:59→20:37)
[2021-01-17] MEDS: 0.9 % Sodium Chloride Flush 3 ML SYRINGE IVFLUSH ×2 (08:01→13:53)
[2021-01-17] MEDS: carvediloL 25 MG TABLET PO ×2 (08:03→20:37)
[2021-01-17] MEDS: Albuterol/Iprat 2.5/0.5MG 3 ML AMPUL.NEB INHALE ×2 (08:03→12:10)
[2021-01-17] MEDS: amLODIPine Besylate 10 MG TABLET PO (08:03)
[2021-01-17] MEDS: predniSONE 20 MG TABLET 40 MG PO (08:03)
[2021-01-17 08:06] LABS: Anion Gap 12 (12-20); Blood Urea Nitrogen 26 mg/dL (9-16); Calcium 9.1 mg/dL (8.4-10.2); Carbon Dioxide 28 mmol/L (22-29); Chloride 102 mmol/L (96-108); Creatinine Clr Calc Pharmacy 52.4; Estimated Glomerular Filt Rate 56; Glucose Random 204 mg/dL (60-115); Magnesium 1.8 mg/dL (1.6-2.6); Sodium 138 mmol/L (135-145)
[2021-01-17] MEDS: Heparin Sodium,Porcine 5,000 UNIT/ML VIAL 2500 UNIT IVPUSH (08:33)
[2021-01-17] MEDS: Heparin Sodium,Porcine/1/2NS 25,000 UNIT/250 ML IV.SOLN 7.62 UNIT IVCONT ×2 (08:34→13:48)
--- NOTE | 2021-01-17 10:36 | PM.PNCARD ---
Subjective Subjective Date of Service: 01/17/21 Interval history: Feels ok. No new complaints. Review of Systems Review of Systems Yes all other systems are reviewed and are negative Cardiovascular: Reports as per HPI, Reports no additional cardiovascular complaints, Denies acrocyanosis, Denies cool extremities, Denies painful fingertips, Reports chest pain at rest, Denies diaphoresis, Denies syncope, Denies irregular heart rhythm, Denies claudication, Denies leg edema, Denies lightheadedness, Denies palpitations and Reports dyspnea Respiratory: Reports dyspnea Denies syncope Endocrine: Denies palpitations Physical Exam Vital Signs: Last Vital Signs Temp 97.5 F 01/16/21 19:42 Pulse 70 01/17/21 08:05 Resp 18 01/17/21 07:23 BP 146/60 H 01/17/21 08:03 Pulse Ox 98 01/16/21 19:42 BMI result Body Mass Index 25.6 Const General: cooperative and no acute distress HENMT Other: Unremarkable Neck Neck: Yes normal visual inspection Chest Chest palpation & inspection: normal inspection of the chest Resp Auscultation: clear to auscultation bilaterally, no crackles and no wheezes Cardio Jugular venous distension: no JVD Palpation: normal PMI Heart sounds: S1 normal heart sound present, S2 normal heart sound present, no gallops, no murmurs and no rubs GI Palpation (GI): Soft to palpation Back/Spine/Pelvis Other: unremarkable Skin General skin exam: no rashes or lesions noted Neuro Cranial nerves: Yes Other cranial nerve findings present Extrem General: Yes no clubbing, cyanosis or edema Psych Mental Status: other Objective Labs and Meds Result diagrams: 01/17/21 07:24 01/17/21 07:24 Lab results: Laboratory Results - last 24 hr 01/16/21 01/16/21 01/16/21 11:50 13:56 17:45 WBC RBC Hgb Hct MCV MCH MCHC RDW Plt Count MPV Absolute Nucleated RBC Nucleated RBC % (auto) PT INR PTT (Heparin Protocol) 84.8 H D Sodium Potassium Chloride Carbon Dioxide Anion Gap BUN Creatinine Estim Creat Clear Calc Estimated GFR POC Glucose 367 H* Random Glucose Calcium Magnesium COVID-19 ([facility]A) Negative COVID-19 Clin Com See Note 01/16/21 01/16/21 01/16/21 18:20 21:04 23:47 WBC RBC Hgb Hct MCV MCH MCHC RDW Plt Count MPV Absolute Nucleated RBC Nucleated RBC % (auto) PT INR PTT (Heparin Protocol) 48.0 L D Sodium Potassium Chloride Carbon Dioxide Anion Gap BUN Creatinine Estim Creat Clear Calc Estimated GFR POC Glucose 131 H 129 H Random Glucose Calcium Magnesium COVID-19 ([facility]) COVID-19 3Funnel Com 01/17/21 01/17/21 01/17/21 07:11 07:24 07:24 WBC 9.2 RBC 3.76 L Hgb 11.1 L Hct 34.3 L MCV 91.2 MCH 29.5 MCHC 32.4 RDW 13.8 Plt Count 299 MPV 9.1 L Absolute Nucleated RBC 0.000 Nucleated RBC % (auto) 0.0 PT 11.5 INR 1.0 PTT (Heparin Protocol) Sodium Potassium Chloride Carbon Dioxide Anion Gap BUN Creatinine Estim Creat Clear Calc Estimated GFR POC Glucose 191 H Random Glucose Calcium Magnesium COVID-19 ([facility]A) COVID-19 Likewise Software 01/17/21 01/17/21 07:24 07:24 WBC RBC Hgb Hct MCV MCH MCHC RDW Plt Count MPV Absolute Nucleated RBC Nucleated RBC % (auto) PT INR PTT (Heparin Protocol) 51.1 L Sodium 138 Potassium 4.0 Chloride 102 Carbon Dioxide 28 Anion Gap 12 BUN 26 H Creatinine 1.01 Estim Creat Clear Calc 52.4 Estimated GFR 56 POC Glucose Random Glucose 204 H Calcium 9.1 D Magnesium 1.8 COVID-19 ([facility]) COVID-19 Likewise Software Progress Note: A&P Assessment and plan (1) NSTEMI (non-ST elevated myocardial infarction): Status: Acute (2) Hypertensive emergency: Status: Acute Assessment and Plan: Blood pressure upon arrival was markedly 240/109 mm Hg. Most recent blood pressure is 146/60 mm Hg. Creatinine is 1.01. Blood sugar on arrival quite high at 439 and 354. High sensitive troponins are 23 followed by 288. Chest CT scan has been reported as no pulmonary embolism aortic aneurysm or dissection. At this time we can treat her for hypertensive emergency and NSTEMI. Based on home meds, she is on amlodipine 10 mg daily, Coreg 25 b.i.d., lisinopril 40 daily hydralazine 50 t.i.d. and hydrochlorothiazide 25 daily. We will need to resume these medications; hydralazine dose increased. Otherwise IV heparin drip. Aspirin, high-dose statins. Echocardiogram Monday. Will follow up with you. Fall Risk Details Current Medications: Current Medications Acetaminophen (Acetaminophen 325 Mg Tablet) 650 mg PO Q6H PRN PRN Reason: Pain, Mild (Pain Scale 1-3) Last Admin: 01/16/21 11:59 Dose: 650 mg Documented by: Albuterol Sulfate (Albuterol Sulfate (0.083%) 2.5 Mg/3 Ml Vial.Neb) 2.5 mg INHALE Q2H PRN PRN Reason: shortness of breath/wheeze Albuterol/Ipratropium (Albuterol/Iprat 2.5/0.5mg 3 Ml Ampul.Neb) 3 ml INHALE RQ4H WHILE AWAKE [facility] Last Admin: 01/17/21 08:03 Dose: 3 ml Documented by: Amlodipine Besylate (Amlodipine Besylate 10 Mg Tablet) 10 mg PO DAILY [facility]; Protocol Last Admin: 01/17/21 08:03 Dose: 10 mg Documented by: Aspirin (Aspirin Enteric Coated 81 Mg Tablet.) 81 mg PO DAILY [facility] Last Admin: 01/17/21 07:59 Dose: 81 mg Documented by: Atorvastatin Calcium (Atorvastatin Calcium 80 Mg Tablet) 80 mg PO DAILY [facility] Last Admin: 01/17/21 07:57 Dose: 80 mg Documented by: Carvedilol (Carvedilol 25 Mg Tablet) 25 mg PO BID [facility]; Protocol Last Admin: 01/17/21 08:03 Dose: 25 mg Documented by: Clopidogrel Bisulfate (Clopidogrel Bisulfate 75 Mg Tablet) 75 mg PO DAILY [facility] Last Admin: 01/17/21 07:57 Dose: 75 mg Documented by: Dextrose (Dextrose 50 % 25 Gm/50 Ml Vial) 25 gm IVPUSH Q15M PRN; Protocol PRN Reason: per Hypoglycemia Standing Ord. Docusate Sodium (Docusate Sodium 100 Mg Capsule) 100 mg PO BID [facility] Last Admin: 01/17/21 07:58 Dose: 100 mg Documented by: Escitalopram Oxalate (Escitalopram Oxalate 20 Mg Tablet) 20 mg PO DAILY [facility] Last Admin: 01/17/21 07:58 Dose: 20 mg Documented by: Ferrous Sulfate (Ferrous Sulfate 324 Mg Tablet.) 324 mg PO BID [facility] Last Admin: 01/17/21 07:59 Dose: 324 mg Documented by: Fluticasone Propionate (Fluticasone Propionate Nasal 16 Gm [place]) 2 spray NOSTRIL-B DAILY [facility] Last Admin: 01/17/21 08:06 Dose: Not Given Documented by: Fluticasone Propionate (Fluticasone Propionate 100 Mcg Blst.W.Dev) 2 puff INHALE RBID [facility] Last Admin: 01/17/21 08:07 Dose: Not Given Documented by: Gabapentin (Gabapentin 400 Mg Capsule) 800 mg PO TID [facility] Last Admin: 01/17/21 07:57 Dose: 800 mg Documented by: Glucose (Glucose Gel 15 Gm Gel..Gram.) 15 gm PO Q15M PRN; Protocol PRN Reason: per Hypoglycemia Standing Ord. Heparin Sodium (Porcine) (Heparin Sodium,Porcine 5,000 Unit/Ml Vial) 2,500 unit 40 unit/kg (2500 unit) IVPUSH PROTOCOL BOLUS PRN; Protocol PRN Reason: 40 unit/kg - Heparin Protocol Last Admin: 01/17/21 08:33 Dose: 2,500 unit Documented by: Heparin Sodium (Porcine) (Heparin Sodium,Porcine 5,000 Unit/Ml Vial) 5,100 unit 80 unit/kg (5100 unit) IVPUSH PROTOCOL BOLUS PRN; Protocol PRN Reason: 80 unit/kg - Heparin Protocol Hydralazine HCl (Hydralazine Hcl 25 Mg Tablet) 75 mg PO TID [facility]; Protocol Last Admin: 01/17/21 07:58 Dose: 75 mg Documented by: Heparin Sodium/Sodium Chloride () 25,000 unit in 250 mls @ 0 mls/hr IVCONT .Q0M [facility]; Protocol Last Admin: 01/17/21 08:34 Dose: 12 units/kg/hr, 7.62 mls/hr Documented by: Insulin Glargine (Insulin Glargine,Hum.Rec.Anlog 100 Unit/Ml 10 Ml Vial) 10 unit SUBCUT DAILY [facility] Last Admin: 01/17/21 07:54 Dose: 10 unit Documented by: Insulin Human Lispro (Insulin Lispro 100 Unit/Ml 3 Ml Vial) 0 unit SUBCUT QIDACHS [facility]; Protocol Last Admin: 01/17/21 07:39 Dose: 2 unit Documented by: Lisinopril (Lisinopril 40 Mg Tablet) 40 mg PO DAILY [facility]; Protocol Last Admin: 01/17/21 07:55 Dose: 40 mg Documented by: Mirtazapine (Mirtazapine 15 Mg Tablet) 45 mg PO BEDTIME [facility] Last Admin: 01/16/21 21:04 Dose: 45 mg Documented by: Morphine Sulfate (Morphine Sulfate 2 Mg/Ml Cartridge) 2 mg IVPUSH Q2H PRN; Protocol PRN Reason: severe pain Multivitamins/Vitamin C (Multivitamin Tablet) 1 tab PO DAILY [facility] Last Admin: 01/17/21 07:57 Dose: 1 tab Documented by: Nicotine Polacrilex (Nicotine Polacrilex 2 Mg Gum) 2 mg BUCCAL Q2H PRN PRN Reason: Nicotine Cravings Nitroglycerin (Nitroglycerin 0.4 Mg Tab.Subl) 0.4 mg SUBLINGUAL Q5MX3 PRN PRN Reason: chest pain Omeprazole (Omeprazole 20 Mg Capsule.Dr) 20 mg PO BID@0630,1630 [facility] Last Admin: 01/17/21 06:40 Dose: 20 mg Documented by: Ondansetron HCl (Ondansetron Hcl 4 Mg/2 Ml Vial) 4 mg IVPUSH Q8H PRN PRN Reason: Nausea and Vomiting Oxycodone HCl (Oxycodone Hcl Immed Release 5 Mg Tablet) 5 mg PO Q6H PRN PRN Reason: Pain (Scale Score 7-10) Last Admin: 01/17/21 07:54 Dose: 5 mg Documented by: Pharmacy Consult (Consult Rx Perform Med Rec) 1 each MISCELLANE ONCE PRN PRN Reason: Consult order Prednisone (Prednisone 20 Mg Tablet) 40 mg PO DAILY [facility] Last Admin: 01/17/21 08:03 Dose: 40 mg Documented by: Sodium Chloride (0.9 % Sodium Chloride Flush 3 Ml Syringe) [facility] Admin: 01/17/21 08:01 Dose: 3 ml Documented by: Time Spent With Patient Time: Total time spent is greater than 50% in coordination of care (as documented) at patient's floor/unit and/or counseling patient: Time with patient: less than 15 minutes Progress Note: Quality Stroke Does the patient have a stroke diagnosis?: No Procedures Date of Service Date of Service: 01/17/21
--- NOTE | 2021-01-17 12:22 | HO.PM.IMPN ---
Subjective Subjective Date of Service: 01/17/21 Interval History: Pt interviewed in Surinamese No chest pain No dyspnea Review of Systems Review of Systems: Yes all other systems are reviewed and are negative Physical Exam Vital Signs: Vital Signs: Last Vital Signs Temp 97.5 F 01/16/21 19:42 Pulse 63 01/17/21 10:57 Resp 19 01/17/21 10:57 BP 143/59 H 01/17/21 10:57 Pulse Ox 97 01/17/21 10:57 BMI result Body Mass Index 25.6 Gen: in no acute distress HEENT: sclera anicteric, moist mucus membranes Neck: supple Lungs: clear to auscultation bilaterally Heart: regular rate and rhythm, no murmurs Abd: soft, non-tender, non-distended Ext: no edema Skin: warm/well-perfused Neuro: alert and oriented x3, no focal findings Psych: appropriate affect Objective Data Active Medications Acetaminophen (Acetaminophen 325 Mg Tablet) 650 mg PO Q6H PRN PRN Reason: Pain, Mild (Pain Scale 1-3) Last Admin: 01/16/21 11:59 Dose: 650 mg Documented by: SANA Albuterol Sulfate (Albuterol Sulfate (0.083%) 2.5 Mg/3 Ml Vial.Neb) 2.5 mg INHALE Q2H PRN PRN Reason: shortness of breath/wheeze Albuterol/Ipratropium (Albuterol/Iprat 2.5/0.5mg 3 Ml Ampul.Neb) 3 ml INHALE RQ4H WHILE AWAKE [facility] Last Admin: 01/17/21 12:10 Dose: 3 ml Documented by: GRACE Amlodipine Besylate (Amlodipine Besylate 10 Mg Tablet) 10 mg PO DAILY [facility]; Protocol Last Admin: 01/17/21 08:03 Dose: 10 mg Documented by: YANDEL Aspirin (Aspirin Enteric Coated 81 Mg Tablet.) 81 mg PO DAILY [facility] Last Admin: 01/17/21 07:59 Dose: 81 mg Documented by: YANDEL Atorvastatin Calcium (Atorvastatin Calcium 80 Mg Tablet) 80 mg PO DAILY [facility] Last Admin: 01/17/21 07:57 Dose: 80 mg Documented by: YANDEL Carvedilol (Carvedilol 25 Mg Tablet) 25 mg PO BID [facility]; Protocol Last Admin: 01/17/21 08:03 Dose: 25 mg Documented by: YANDEL Clopidogrel Bisulfate (Clopidogrel Bisulfate 75 Mg Tablet) 75 mg PO DAILY [facility] Last Admin: 01/17/21 07:57 Dose: 75 mg Documented by: YANDEL Dextrose (Dextrose 50 % 25 Gm/50 Ml Vial) 25 gm IVPUSH Q15M PRN; Protocol PRN Reason: per Hypoglycemia Standing Ord. Docusate Sodium (Docusate Sodium 100 Mg Capsule) 100 mg PO BID [facility] Last Admin: 01/17/21 07:58 Dose: 100 mg Documented by: YANDEL Escitalopram Oxalate (Escitalopram Oxalate 20 Mg Tablet) 20 mg PO DAILY [facility] Last Admin: 01/17/21 07:58 Dose: 20 mg Documented by: YANDEL Ferrous Sulfate (Ferrous Sulfate 324 Mg Tablet.Dr) 324 mg PO BID [facility] Last Admin: 01/17/21 07:59 Dose: 324 mg Documented by: YANDEL Fluticasone Propionate (Fluticasone Propionate Nasal 16 Gm [place]) 2 spray NOSTRIL-B DAILY [facility] Last Admin: 01/17/21 08:06 Dose: Not Given Documented by: GRACE Non-Admin Reason: Med Not Available Fluticasone Propionate (Fluticasone Propionate 100 Mcg Blst.W.Dev) 2 puff INHALE RBID [facility] Last Admin: 01/17/21 08:07 Dose: Not Given Documented by: GRACE Non-Admin Reason: Med Not Available Gabapentin (Gabapentin 400 Mg Capsule) 800 mg PO TID [facility] Last Admin: 01/17/21 07:57 Dose: 800 mg Documented by: YANDEL Glucose (Glucose Gel 15 Gm Gel..Gram.) 15 gm PO Q15M PRN; Protocol PRN Reason: per Hypoglycemia Standing Ord. Heparin Sodium (Porcine) (Heparin Sodium,Porcine 5,000 Unit/Ml Vial) 2,500 unit 40 unit/kg (2500 unit) IVPUSH PROTOCOL BOLUS PRN; Protocol PRN Reason: 40 unit/kg - Heparin Protocol Last Admin: 01/17/21 08:33 Dose: 2,500 unit Documented by: YANDEL Heparin Sodium (Porcine) (Heparin Sodium,Porcine 5,000 Unit/Ml Vial) 5,100 unit 80 unit/kg (5100 unit) IVPUSH PROTOCOL BOLUS PRN; Protocol PRN Reason: 80 unit/kg - Heparin Protocol Hydralazine HCl (Hydralazine Hcl 25 Mg Tablet) 75 mg PO TID [facility]; Protocol Last Admin: 01/17/21 07:58 Dose: 75 mg Documented by: YANDEL Heparin Sodium/Sodium Chloride () 25,000 unit in 250 mls @ 0 mls/hr IVCONT .Q0M [facility]; Protocol Last Admin: 01/17/21 08:34 Dose: 12 units/kg/hr, 7.62 mls/hr Documented by: YANDEL Cosigned by: BARTOLO Insulin Glargine (Insulin Glargine,Hum.Rec.Anlog 100 Unit/Ml 10 Ml Vial) 10 unit SUBCUT DAILY [facility] Last Admin: 01/17/21 07:54 Dose: 10 unit Documented by: YANDEL Insulin Human Lispro (Insulin Lispro 100 Unit/Ml 3 Ml Vial) 0 unit SUBCUT QIDACHS [facility]; Protocol Last Admin: 01/17/21 07:39 Dose: 2 unit Documented by: YANDEL Lisinopril (Lisinopril 40 Mg Tablet) 40 mg PO DAILY [facility]; Protocol Last Admin: 01/17/21 07:55 Dose: 40 mg Documented by: YANDEL Mirtazapine (Mirtazapine 15 Mg Tablet) 45 mg PO BEDTIME [facility] Last Admin: 01/16/21 21:04 Dose: 45 mg Documented by: CATRACHITO Morphine Sulfate (Morphine Sulfate 2 Mg/Ml Cartridge) 2 mg IVPUSH Q2H PRN; Protocol PRN Reason: severe pain Multivitamins/Vitamin C (Multivitamin Tablet) 1 tab PO DAILY [facility] Last Admin: 01/17/21 07:57 Dose: 1 tab Documented by: YANDEL Nicotine Polacrilex (Nicotine Polacrilex 2 Mg Gum) 2 mg BUCCAL Q2H PRN PRN Reason: Nicotine Cravings Nitroglycerin (Nitroglycerin 0.4 Mg Tab.Subl) 0.4 mg SUBLINGUAL Q5MX3 PRN PRN Reason: chest pain Omeprazole (Omeprazole 20 Mg Capsule.Dr) 20 mg PO BID@0630,1630 [facility] Last Admin: 01/17/21 06:40 Dose: 20 mg Documented by: SCOOBY Ondansetron HCl (Ondansetron Hcl 4 Mg/2 Ml Vial) 4 mg IVPUSH Q8H PRN PRN Reason: Nausea and Vomiting Oxycodone HCl (Oxycodone Hcl Immed Release 5 Mg Tablet) 5 mg PO Q6H PRN PRN Reason: Pain (Scale Score 7-10) Last Admin: 01/17/21 07:54 Dose: 5 mg Documented by: YANDEL Pharmacy Consult (Consult Rx Perform Med Rec) 1 each MISCELLANE ONCE PRN PRN Reason: Consult order Prednisone (Prednisone 20 Mg Tablet) 40 mg PO DAILY [facility] Last Admin: 01/17/21 08:03 Dose: 40 mg Documented by: YANDEL Sodium Chloride (0.9 % Sodium Chloride Flush 3 Ml Syringe) 3 ml IVFLUSH QSHIFT [facility] Last Admin: 01/17/21 08:01 Dose: 3 ml Documented by: YANDEL Labs CBC & Chem 7: 01/17/21 07:24 01/17/21 07:24 Labs: Laboratory Results - last 24 hr 01/16/21 01/16/21 01/16/21 13:56 17:45 18:20 MCV MCH MCHC RDW Plt Count MPV Absolute Nucleated RBC Nucleated RBC % (auto) PT INR PTT (Heparin Protocol) 84.8 H D Anion Gap Estim Creat Clear Calc Estimated GFR POC Glucose 131 H Random Glucose Calcium Magnesium COVID-19 ([facility]) Negative COVID-19 Clin Com See Note 01/16/21 01/16/21 01/17/21 21:04 23:47 07:11 MCV MCH MCHC RDW Plt Count MPV Absolute Nucleated RBC Nucleated RBC % (auto) PT INR PTT (Heparin Protocol) 48.0 L D Anion Gap Estim Creat Clear Calc Estimated GFR POC Glucose 129 H 191 H Random Glucose Calcium Magnesium COVID-19 ([facility]) COVID-19 Clin Com 01/17/21 01/17/21 01/17/21 07:24 07:24 07:24 MCV 91.2 MCH 29.5 MCHC 32.4 RDW 13.8 Plt Count 299 MPV 9.1 L Absolute Nucleated RBC 0.000 Nucleated RBC % (auto) 0.0 PT 11.5 INR 1.0 PTT (Heparin Protocol) Anion Gap 12 Estim Creat Clear Calc 52.4 Estimated GFR 56 POC Glucose Random Glucose 204 H Calcium 9.1 D Magnesium 1.8 COVID-19 ([facility]) COVID-19 Clin Com 01/17/21 07:24 MCV MCH MCHC RDW Plt Count MPV Absolute Nucleated RBC Nucleated RBC % (auto) PT INR PTT (Heparin Protocol) 51.1 L Anion Gap Estim Creat Clear Calc Estimated GFR POC Glucose Random Glucose Calcium Magnesium COVID-19 ([facility]) COVID-19 Clin Com Assessment and Plan (1) NSTEMI (non-ST elevated myocardial infarction): Status: Acute (2) Hypertensive emergency: Status: Acute Assessment and Plan: 60yo with DM2, PAD s/p fem/pop bypass, CAD, HTN, and asthma currently on prednisone and azithromycin for bronchitis presenting with acute onset of anginal-type chest pain associated with uncontrolled hypertension. # NSTEMI - continue IV heparin gtt x 48hr, prn NTG/morphine. continue DAPT + B-anni which she is already on. Cardiology following. TTE tomorrow. # HTN emergency - resolved, back on home medications: [amlodipine, carvedilol, hydralazine, lisinopril; increased hydralazine for improved control # bronchitis # acute exacerbation of mild persistent asthma - continue prednisone burst, standing/prn nebs # PAD - continue statin + DAPT # DM2 with hyperglycemia - basal/bolus insulin, last A1c 9.5 06/25/20 # neuropathy - gabapentin # mood disorder - continue mirtazapine + escitalopram # VTE ppx - on [facility] Quality Stroke Does the patient have a stroke diagnosis?: No VTE Prior VTE?: No VTE Risk Level:: Medical - moderate - high VTE Device Contraindication: N/A - Device Ordered VTE Drug Contraindication: N/A - Med Ordered
[2021-01-17 12:33] LABS: Glucose, Whole Blood 229 mg/dL (60-115)
[2021-01-17 13:25] LABS: Glucose, Whole Blood 333 mg/dL (60-115)
--- NOTE | 2021-01-17 14:31 | MHC.CM.PN ---
CM spoke with Patient over the phone on her cell at [phone], with the assist of a Joy Loader. Patient lives in an apartment with her Boyfriend and 2 adult children ages 18 and 22 years of age. Patient had no services nor D[employer] and her goal is to return home no services. CM has initiated and will follow for dc planning.PCP is Dr. Radha Bloom.Patient's Daughter/Margret is her HCP.
[2021-01-17 15:00] LABS: PTT Heparin Drip 75.3 SEC (53-77.9)
[2021-01-17 16:17] LABS: Glucose, Whole Blood 403 mg/dL (60-115)
[2021-01-17] MEDS: Insulin Regular, Human 100 UNIT/ML 3 ML VIAL 10 UNIT IVPUSH (17:18)
[2021-01-17] MEDS: Acetaminophen 325 MG TABLET 650 MG PO (17:21)
[2021-01-17 20:28] LABS: Glucose, Whole Blood 267 mg/dL (60-115)
[2021-01-17] MEDS: Mirtazapine 15 MG TABLET 45 MG PO (20:38)
[2021-01-17 20:58] LABS: PTT Heparin Drip 106.9 SEC (53-77.9)
[2021-01-18] VITALS (15 sets, daily range): BP systolic 116–173; BP diastolic 51–82; PULSE 69–85; RESP 18–67; TEMP 36.1–37.2; O2SAT 94–98
[2021-01-18 03:39] LABS: Estimated Average Glucose 283 mg/dL; Hemoglobin A1c % 11.5 %
[2021-01-18 04:44] LABS: PTT Heparin Drip 75.1 SEC (53-77.9)
[2021-01-18 05:37] LABS: Hematocrit 32.9 % (37.0-47.0); Hemoglobin 10.8 g/dl (12.0-16.0); Mean Corpuscular HGB Conc 32.8 g/dl (31.0-35.0); Mean Corpuscular Hemoglobin 29.6 pg (27.0-33.0); Mean Corpuscular Volume 90.1 fL (80.0-98.0); Mean Platelet Volume 9.3 fL (9.4-12.3); Platelet Count 301 X10*3/uL (160-400); Red Blood Count 3.65 X10*6/uL (4.20-5.50); Red Cell Distribution Width 13.8 % (11.0-16.0); White Blood Count 11.3 X10*3/uL (4.8-10.8)
[2021-01-18 06:07] LABS: Anion Gap 11 (12-20); Blood Urea Nitrogen 28 mg/dL (9-16); Calcium 9.3 mg/dL (8.4-10.2); Carbon Dioxide 26 mmol/L (22-29); Chloride 107 mmol/L (96-108); Creatinine Clr Calc Pharmacy 63.1; Estimated Glomerular Filt Rate > 60; Glucose Random 122 mg/dL (60-115); Potassium 3.9 mmol/L (3.3-5.1); Sodium 140 mmol/L (135-145); Troponin-I High Sensitivity 818.3 ng/L (<3.5-17.0)
[2021-01-18] MEDS: Omeprazole 20 MG CAPSULE.DR PO ×2 (06:16→15:11)
--- NOTE | 2021-01-18 07:30 | CA_ITS ---
Transthoracic Echocardiogram Patient (Last, First, Middle): Rocío Hallman, Gender: Female Date of : 1960 Age: 60 Procedure Date: 01/18/2021 Procedure Type: Transthoracic Echocardiogram Location: [facility] [place] Height: 157.48 cm Weight: 63.5 kg BSA: 1.64 m2 Heart Rate: bpm BP: 117 / 51 mmHg [employer] Advisor: VH/CP Referring MD: Crystal Lim MD Symptoms: nstemi Study Quality: Fair ECG Rhythm: Sinus Conclusions: - Normal left ventricular size and systolic function. - There is no evidence of regional wall motion abnormalities. - Normal right ventricular cavity size and systolic function. - There is mild aortic valve stenosis. Findings Left Ventricle Normal left ventricular size and systolic function. There is mildly increased left ventricular wall thickness. The visually estimated ejection fraction is between 60-65%. There is no evidence of regional wall motion abnormalities. Diastolic function is normal for age. Right Ventricle Normal right ventricular cavity size and systolic function. Atria The left atrium is mildly dilated. The right atrium is normal in size. Aortic Valve There is a normal trileaflet aortic valve. There is mild calcification of the aortic valve. There is mild aortic valve stenosis. There is no aortic valve regurgitation. Mitral Valve Normal mitral valve structure and function. There is no mitral valve regurgitation. There is no mitral valve stenosis. Pulmonic Valve The pulmonic valve is likely normal. Tricuspid Valve Normal tricuspid valve structure and function. There is trace tricuspid valve regurgitation. Normal right atrial pressure. There is no evidence of pulmonary hypertension. Great Vessels All visible segments of the aorta are normal in size. The visualized portions of the pulmonary artery and branches are normal. Venous The inferior vena cava is normal in size and collapses greater than 50% with inspiration. Pericardium/Pleural There is no evidence of pericardial effusion. Prior Study Comparison No significant change compared to prior study dated: 05/14/2020. Measurements 2D Linear Measurements IVSd: 0.91 0.6-0.9/0.6-1.0 cm LVIDd: 4.15 3.9-5.3/4.2-5.9 cm LVIDd Index: 2.53 2.4-3.2/2.2-3.1 cm/m2 LVIDs: 2.36 2.0-3.6 cm LVPWd: 0.96 0.7-1.1 cm Ao Root: 3.00 2.1-3.5 cm LA Diam: 3.00 2.7-3.8/3.0-4.0 cm LAIDs Index: 1.83 1.5-2.3 cm/m2 LV Mass: 152.67 67-162/88-224 g LV Mass Index: 93.09 43-95/49-115 g/m2 LVOT Diam: 2.10 3.0+(-)1.3 cm Mitral Valve MV Pk E: 0.86 MV PK A: 0.84 MV Decel Time: 329.00 E/A: 1.00 E'Lateral: 8.59 E'Medial: 6.85 E/E' Med: 12.60 E/E' Lat: 10.00 PHT: 96.00 MVA PHT: 2.29 Decel Emery: 2.62 Aortic Valve AoV Pk Kuldip: 2.71 AoV Mn Kuldip: 1.71 AoV VTI: 0.57 AoV Pk Grad: 29.00 Aov Mn Grad: 14.00 YESIKA Cont.VTI: 1.76 LVOT LVOT Pk Kuldip: 1.20 LVOT Mn Kuldip: 0.84 LVOT VTI: 0.29 LVOT Pk Grad: 6.00 LVOT Mn Grad: 3.00 LVOT Diam: 2.10 LVOT Area: 3.46 Diastolic Function MV Pk E: 0.86 MV Pk A: 0.84 E/A: 1.00 E'Medial: 6.85 E/E' Med: 12.60 E' Laterial: 8.59 E/E' Lat: 10.00 Right Ventricle TAPSE (mm): 21.00 TVS' Kuldip: 13.00 Tricuspid Valve TR Pk Kuldip: 1.48 TR Pk Grad: 9.00 Great Vessels Aorta Ao Root-2D: 3.00 2.0-3.7 cm Ao Asc: 2.70 2.1-3.4 cm Updated in Other Vendor System with Status of Final Ghanshyam Daniel MD electronically signed on 01/18/2021 1:16:59 PM with status of Final
[2021-01-18 07:50] LABS: Glucose, Whole Blood 117 mg/dL (60-115)
[2021-01-18] MEDS: Fluticasone Propionate 100 MCG BLST.W.DEV 2 PUFF INHALE ×2 (07:53→19:44)
[2021-01-18] MEDS: Albuterol/Iprat 2.5/0.5MG 3 ML AMPUL.NEB INHALE ×4 (07:53→19:44)
[2021-01-18 10:54] LABS: PTT Heparin Drip 66.7 SEC (53-77.9)
--- NOTE | 2021-01-18 11:12 | P.PNCA_ITS ---
Subjective Subjective Date of Service: 01/18/21 <JACQUELINE Frazier - Last Filed: 01/18/21 11:37> 01/18/21 <Ghanshyam Daniel MD - Last Filed: 01/18/21 12:19> Principal diagnosis: HTN emergency, NSTEMI <JACQUELINE Frazier - Last Filed: 01/18/21 11:37> Interval history: Cardiology follow up for the above. Seen at 0820. Today she reports feeling OK. Slept well. No chest pains, sob, palpitation. Has some fatigue when getting up to BR. No dizziness. IV heparin infusing. Echo scheduled to be done today. <JACQUELINE Frazier - Last Filed: 01/18/21 11:37> Review of Systems Review of Systems as above <JACQUELINE Frazier - Last Filed: 01/18/21 11:37> Yes all other systems are reviewed and are negative <JACQUELINE Frazier - Last Filed: 01/18/21 11:37> Physical Exam Vital Signs: Last Vital Signs Temp 98.9 F 01/18/21 07:41 Pulse 74 01/18/21 07:41 Resp 67 H 01/18/21 11:04 BP 130/60 01/18/21 11:04 Pulse Ox 95 01/18/21 07:41 BMI result Body Mass Index 25.6 <JACQUELINE Frazier - Last Filed: 01/18/21 11:37> Objective Labs and Meds Result diagrams: : 01/18/21 05:19 01/18/21 05:19 <JACQUELINE Frazier - Last Filed: 01/18/21 11:37> Lab results: Laboratory Results - last 24 hr 01/17/21 01/17/21 01/17/21 07:24 12:29 13:23 WBC RBC Hgb Hct MCV MCH MCHC RDW Plt Count MPV Absolute Nucleated RBC Nucleated RBC % (auto) PTT (Heparin Protocol) Sodium Potassium Chloride Carbon Dioxide Anion Gap BUN Creatinine Estim Creat Clear Calc Estimated GFR POC Glucose 229 H 333 H Random Glucose Estimat Average Glucose 283 Hemoglobin A1c % 11.5 Calcium Troponin I High Sens 01/17/21 01/17/21 01/17/21 14:19 16:11 20:17 WBC RBC Hgb Hct MCV MCH MCHC RDW Plt Count MPV Absolute Nucleated RBC Nucleated RBC % (auto) PTT (Heparin Protocol) 75.3 D Sodium Potassium Chloride Carbon Dioxide Anion Gap BUN Creatinine Estim Creat Clear Calc Estimated GFR POC Glucose 403 H* 267 H Random Glucose Estimat Average Glucose Hemoglobin A1c % Calcium Troponin I High Sens 01/17/21 01/18/21 01/18/21 20:23 03:49 05:19 WBC 11.3 H RBC 3.65 L Hgb 10.8 L Hct 32.9 L MCV 90.1 MCH 29.6 MCHC 32.8 RDW 13.8 Plt Count 301 MPV 9.3 L Absolute Nucleated RBC 0.000 Nucleated RBC % (auto) 0.0 PTT (Heparin Protocol) 106.9 H D 75.1 D Sodium Potassium Chloride Carbon Dioxide Anion Gap BUN Creatinine Estim Creat Clear Calc Estimated GFR POC Glucose Random Glucose Estimat Average Glucose Hemoglobin A1c % Calcium Troponin I High Sens 01/18/21 01/18/21 01/18/21 05:19 05:19 07:45 WBC RBC Hgb Hct MCV MCH MCHC RDW Plt Count MPV Absolute Nucleated RBC Nucleated RBC % (auto) PTT (Heparin Protocol) Sodium 140 Potassium 3.9 Chloride 107 Carbon Dioxide 26 Anion Gap 11 L BUN 28 H Creatinine 0.84 Estim Creat Clear Calc 63.1 Estimated GFR > 60 POC Glucose 117 H Random Glucose 122 H Estimat Average Glucose Hemoglobin A1c % Calcium 9.3 Troponin I High Sens 818.3 H* D 01/18/21 10:15 WBC RBC Hgb Hct MCV MCH MCHC RDW Plt Count MPV Absolute Nucleated RBC Nucleated RBC % (auto) PTT (Heparin Protocol) 66.7 Sodium Potassium Chloride Carbon Dioxide Anion Gap BUN Creatinine Estim Creat Clear Calc Estimated GFR POC Glucose Random Glucose Estimat Average Glucose Hemoglobin A1c % Calcium Troponin I High Sens <JACQUELINE Frazier - Last Filed: 01/18/21 11:37> Progress Note: A&P Assessment and plan (1) Hypertensive emergency: Status: Acute <JACQUELINE Frazier - Last Filed: 01/18/21 11:37> Assessment and Plan: Hx of HTN. BP up to 240/109 on admit. Troponins elevated. Managed medically - Hydralazine dose has been increased. BP variable - this am 117/51 and 164/82. No report of headache, vision changes. Continue Amlodipine, carvedilol, lisinopril, hydralazine. Home HCTZ not reordered, for unclear reason. Can restart if no contraindications. <JACQUELINE Frazier - Last Filed: 01/18/21 11:37> (2) NSTEMI (non-ST elevated myocardial infarction): Status: Acute <JACQUELINE Frazier - Last Filed: 01/18/21 11:37> Assessment and Plan: Hx of CAD with known moderate RCA stenosis that has been managed medically. This admit, presented with acute CP episode that occurred while cooking. Troponin pj up to 818. EKG with SR, nonspecific ST abn. She is on Heparin drip for at least 48 hr. No further reports of CP. Tele stable SR, 60s. Echo ordered for today to assess EF, wall motion. She will need ischemic eval - stress Vs cath, to be determined after echo results known. Continue aspirin, high dose atorvastatin, carvedilol, plavix. We will follow. <JACQUELINE Frazier - Last Filed: 01/18/21 11:37> (3) Elevated troponin: Status: Acute <JACQUELINE Frazier - Last Filed: 01/18/21 11:37> (4) CAD (coronary artery disease): Status: Acute <JACQUELINE Frazier - Last Filed: 01/18/21 11:37> Assessment and Plan: Known hx of moderate RCA stenosis which has been followed by our outpt office and managed medically <JACQUELINE Frazier - Last Filed: 01/18/21 11:37> Fall Risk Details Current Medications: Current Medications Acetaminophen (Acetaminophen 325 Mg Tablet) 650 mg PO Q6H PRN PRN Reason: Pain, Mild (Pain Scale 1-3) Last Admin: 01/17/21 17:21 Dose: 650 mg Documented by: Albuterol Sulfate (Albuterol Sulfate (0.083%) 2.5 Mg/3 Ml Vial.Neb) 2.5 mg INHALE Q2H PRN PRN Reason: shortness of breath/wheeze Albuterol/Ipratropium (Albuterol/Iprat 2.5/0.5mg 3 Ml Ampul.Neb) 3 ml INHALE RQ4H WHILE AWAKE [facility] Last Admin: 01/18/21 07:53 Dose: 3 ml Documented by: Amlodipine Besylate (Amlodipine Besylate 10 Mg Tablet) 10 mg PO DAILY [facility]; Protocol Last Admin: 01/17/21 08:03 Dose: 10 mg Documented by: Aspirin (Aspirin Enteric Coated 81 Mg Tablet.) 81 mg PO DAILY [facility] Last Admin: 01/17/21 07:59 Dose: 81 mg Documented by: Atorvastatin Calcium (Atorvastatin Calcium 80 Mg Tablet) 80 mg PO DAILY [facility] Last Admin: 01/17/21 07:57 Dose: 80 mg Documented by: Carvedilol (Carvedilol 25 Mg Tablet) 25 mg PO BID [facility]; Protocol Last Admin: 01/17/21 20:37 Dose: 25 mg Documented by: Clopidogrel Bisulfate (Clopidogrel Bisulfate 75 Mg Tablet) 75 mg PO DAILY [facility] Last Admin: 01/17/21 07:57 Dose: 75 mg Documented by: Dextrose (Dextrose 50 % 25 Gm/50 Ml Vial) 25 gm IVPUSH Q15M PRN; Protocol PRN Reason: per Hypoglycemia Standing Ord. Docusate Sodium (Docusate Sodium 100 Mg Capsule) 100 mg PO BID [facility] Last Admin: 01/17/21 20:37 Dose: 100 mg Documented by: Escitalopram Oxalate (Escitalopram Oxalate 20 Mg Tablet) 20 mg PO DAILY [facility] Last Admin: 01/17/21 07:58 Dose: 20 mg Documented by: Ferrous Sulfate (Ferrous Sulfate 324 Mg Tablet.) 324 mg PO BID [facility] Last Admin: 01/17/21 20:37 Dose: 324 mg Documented by: Fluticasone Propionate (Fluticasone Propionate Nasal 16 Gm [place]) 2 spray NOSTRIL-B DAILY [facility] Last Admin: 01/17/21 08:06 Dose: Not Given Documented by: Fluticasone Propionate (Fluticasone Propionate 100 Mcg Blst.W.Dev) 2 puff INHALE RBID [facility] Last Admin: 01/18/21 07:53 Dose: 2 puff Documented by: Gabapentin (Gabapentin 400 Mg Capsule) 800 mg PO TID [facility] Last Admin: 01/17/21 20:37 Dose: 800 mg Documented by: Glucose (Glucose Gel 15 Gm Gel..Gram.) 15 gm PO Q15M PRN; Protocol PRN Reason: per Hypoglycemia Standing Ord. Hydralazine HCl (Hydralazine Hcl 25 Mg Tablet) 75 mg PO TID [facility]; Protocol Last Admin: 01/17/21 20:38 Dose: 75 mg Documented by: Insulin Glargine (Insulin Glargine,Hum.Rec.Anlog 100 Unit/Ml 10 Ml Vial) 14 unit SUBCUT DAILY [facility] Insulin Human Lispro (Insulin Lispro 100 Unit/Ml 3 Ml Vial) 0 unit SUBCUT QIDACHS [facility]; Protocol Last Admin: 01/18/21 08:17 Dose: Not Given Documented by: Lisinopril (Lisinopril 40 Mg Tablet) 40 mg PO DAILY [facility]; Protocol Last Admin: 01/17/21 07:55 Dose: 40 mg Documented by: Mirtazapine (Mirtazapine 15 Mg Tablet) 45 mg PO BEDTIME [facility] Last Admin: 01/17/21 20:38 Dose: 45 mg Documented by: Morphine Sulfate (Morphine Sulfate 2 Mg/Ml Cartridge) 2 mg IVPUSH Q2H PRN; Protocol PRN Reason: severe pain Multivitamins/Vitamin C (Multivitamin Tablet) 1 tab PO DAILY [facility] Last Admin: 01/17/21 07:57 Dose: 1 tab Documented by: Nicotine Polacrilex (Nicotine Polacrilex 2 Mg Gum) 2 mg BUCCAL Q2H PRN PRN Reason: Nicotine Cravings Nitroglycerin (Nitroglycerin 0.4 Mg Tab.Subl) 0.4 mg SUBLINGUAL Q5MX3 PRN PRN Reason: chest pain Omeprazole (Omeprazole 20 Mg Capsule.Dr) 20 mg PO BID@0630,1630 [facility] Last Admin: 01/18/21 06:16 Dose: 20 mg Documented by: Ondansetron HCl (Ondansetron Hcl 4 Mg/2 Ml Vial) 4 mg IVPUSH Q8H PRN PRN Reason: Nausea and Vomiting Oxycodone HCl (Oxycodone Hcl Immed Release 5 Mg Tablet) 5 mg PO Q6H PRN PRN Reason: Pain (Scale Score 7-10) Last Admin: 01/17/21 20:40 Dose: 5 mg Documented by: Pharmacy Consult (Consult Rx Perform Med Rec) 1 each MISCELLANE ONCE PRN PRN Reason: Consult order Prednisone (Prednisone 20 Mg Tablet) 40 mg PO DAILY [facility] Last Admin: 01/17/21 08:03 Dose: 40 mg Documented by: Sodium Chloride (0.9 % Sodium Chloride Flush 3 Ml Syringe) 3 ml IVFLUSH QSHIFT [facility] Last Admin: 01/18/21 00:41 Dose: Not Given Documented by: <JACQUELINE Frazier - Last Filed: 01/18/21 11:37> Time Spent With Patient Time: Total time spent is greater than 50% in coordination of care (as documented) at patient's floor/unit and/or counseling patient: 22 <JACQUELINE Frazier - Last Filed: 01/18/21 11:37> Time with patient: 15 - 24 minutes <JACQUELINE Frazier - Last Filed: 01/18/21 11:37> Progress Note: Quality Stroke Does the patient have a stroke diagnosis?: No <JACQUELINE Frazier Last Filed: 01/18/21 11:37> Procedures Date of Service Date of Service: 01/18/21 <JACQUELINE Frazier - Last Filed: 01/18/21 11:37>
[2021-01-18] MEDS: 0.9 % Sodium Chloride Flush 3 ML SYRINGE IVFLUSH ×3 (11:13→21:06)
[2021-01-18] MEDS: Ferrous Sulfate 324 MG TABLET.DR PO ×2 (11:14→21:06)
[2021-01-18] MEDS: Multivitamin TABLET 1 TAB PO (11:14)
[2021-01-18] MEDS: carvediloL 25 MG TABLET PO ×2 (11:14→21:05)
[2021-01-18] MEDS: Aspirin Enteric Coated 81 MG TABLET.DR PO (11:15)
[2021-01-18] MEDS: Escitalopram Oxalate 20 MG TABLET PO (11:15)
[2021-01-18] MEDS: hydrALAZINE HCl 25 MG TABLET 75 MG PO ×2 (11:15→21:05)
[2021-01-18] MEDS: predniSONE 20 MG TABLET 40 MG PO (11:15)
[2021-01-18] MEDS: lisinopriL 40 MG TABLET PO (11:16)
[2021-01-18] MEDS: amLODIPine Besylate 10 MG TABLET PO (11:16)
[2021-01-18] MEDS: Atorvastatin Calcium 80 MG TABLET PO (11:17)
[2021-01-18] MEDS: Docusate Sodium 100 MG CAPSULE PO ×2 (11:17→21:06)
[2021-01-18] MEDS: Fluticasone Propionate Nasal 16 GM SPRAY 2 SPRAY NOSTRIL-B (11:18)
[2021-01-18] MEDS: Insulin Glargine,Hum.rec.anlog 100 UNIT/ML 10 ML VIAL 14 UNIT SUBCUT (11:18)
[2021-01-18] MEDS: Gabapentin 400 MG CAPSULE 800 MG PO ×3 (11:18→21:00)
[2021-01-18] MEDS: Clopidogrel Bisulfate 75 MG TABLET PO (11:18)
[2021-01-18] MEDS: Acetaminophen 325 MG TABLET 650 MG PO (11:20)
[2021-01-18 11:32] LABS: Glucose, Whole Blood 200 mg/dL (60-115)
[2021-01-18] MEDS: Insulin Lispro 100 UNIT/ML 3 ML VIAL SUBCUT ×3 (12:24→21:01)
[2021-01-18] MEDS: oxyCODONE HCl Immed Release 5 MG TABLET PO ×2 (12:31→21:04)
--- NOTE | 2021-01-18 13:35 | P.PNIM_ITS ---
Subjective Subjective Date of Service: 01/18/21 Interval History: History obtained via program review director, patient denies chest pain, no shortness of breath asking for discharge plan, is on IV heparin. Review of Systems General no headache no dizziness no fever chills. CVS no chest pain, no palpitation. Respiratory no cough, no sob. Gastrointestinal no nausea no vomiting, no abdominal pain Review of Systems: Yes all other systems are reviewed and are negative Physical Exam Vital Signs: Vital Signs: Last Vital Signs Temp 97.8 F 01/18/21 11:26 Pulse 84 01/18/21 12:46 Resp 18 01/18/21 11:26 BP 173/70 H 01/18/21 11:26 Pulse Ox 98 01/18/21 11:26 BMI result Body Mass Index 25.6 Gen: Awake alert x3, no acute distress Neck: supple, no JVD Lungs: clear to auscultation bilaterally Heart: regular rate and rhythm, no murmurs Abd: soft, non-tender, non-distended, bowel sounds audible Ext: no edema Skin: warm and dry Neuro: alert and oriented x3, no focal findings Psych: appropriate affect Objective Data Active Medications Acetaminophen (Acetaminophen 325 Mg Tablet) 650 mg PO Q6H PRN PRN Reason: Pain, Mild (Pain Scale 1-3) Last Admin: 01/18/21 11:20 Dose: 650 mg Documented by: NAVJOT Albuterol Sulfate (Albuterol Sulfate (0.083%) 2.5 Mg/3 Ml Vial.Neb) 2.5 mg INHALE Q2H PRN PRN Reason: shortness of breath/wheeze Albuterol/Ipratropium (Albuterol/Iprat 2.5/0.5mg 3 Ml Ampul.Neb) 3 ml INHALE RQ4H WHILE AWAKE [facility] Last Admin: 01/18/21 12:45 Dose: 3 ml Documented by: PORSCHE Amlodipine Besylate (Amlodipine Besylate 10 Mg Tablet) 10 mg PO DAILY [facility]; Protocol Last Admin: 01/18/21 11:16 Dose: 10 mg Documented by: NAVJOT Aspirin (Aspirin Enteric Coated 81 Mg Tablet.) 81 mg PO DAILY [facility] Last Admin: 01/18/21 11:15 Dose: 81 mg Documented by: NAVJOT Atorvastatin Calcium (Atorvastatin Calcium 80 Mg Tablet) 80 mg PO DAILY [facility] Last Admin: 01/18/21 11:17 Dose: 80 mg Documented by: NAVJOT Carvedilol (Carvedilol 25 Mg Tablet) 25 mg PO BID [facility]; Protocol Last Admin: 01/18/21 11:14 Dose: 25 mg Documented by: NAVJOT Clopidogrel Bisulfate (Clopidogrel Bisulfate 75 Mg Tablet) 75 mg PO DAILY [facility] Last Admin: 01/18/21 11:18 Dose: 75 mg Documented by: NAVJOT Dextrose (Dextrose 50 % 25 Gm/50 Ml Vial) 25 gm IVPUSH Q15M PRN; Protocol PRN Reason: per Hypoglycemia Standing Ord. Docusate Sodium (Docusate Sodium 100 Mg Capsule) 100 mg PO BID [facility] Last Admin: 01/18/21 11:17 Dose: 100 mg Documented by: NAVJOT Escitalopram Oxalate (Escitalopram Oxalate 20 Mg Tablet) 20 mg PO DAILY [facility] Last Admin: 01/18/21 11:15 Dose: 20 mg Documented by: NAVJOT Ferrous Sulfate (Ferrous Sulfate 324 Mg Tablet.Dr) 324 mg PO BID [facility] Last Admin: 01/18/21 11:14 Dose: 324 mg Documented by: NAVJOT Fluticasone Propionate (Fluticasone Propionate Nasal 16 Gm [place]) 2 spray NOSTRIL-B DAILY [facility] Last Admin: 01/18/21 11:18 Dose: 2 spray Documented by: NAVJOT Fluticasone Propionate (Fluticasone Propionate 100 Mcg Blst.W.Dev) 2 puff INHALE RBID [facility] Last Admin: 01/18/21 07:53 Dose: 2 puff Documented by: PORSCHE Gabapentin (Gabapentin 400 Mg Capsule) 800 mg PO TID [facility] Last Admin: 01/18/21 11:18 Dose: 800 mg Documented by: NAVJOT Glucose (Glucose Gel 15 Gm Gel..Gram.) 15 gm PO Q15M PRN; Protocol PRN Reason: per Hypoglycemia Standing Ord. Hydralazine HCl (Hydralazine Hcl 25 Mg Tablet) 75 mg PO TID [facility]; Protocol Last Admin: 01/18/21 11:15 Dose: 75 mg Documented by: NAVJOT Insulin Glargine (Insulin Glargine,Hum.Rec.Anlog 100 Unit/Ml 10 Ml Vial) 14 unit SUBCUT DAILY [facility] Last Admin: 01/18/21 11:18 Dose: 14 unit Documented by: NAVJOT Insulin Human Lispro (Insulin Lispro 100 Unit/Ml 3 Ml Vial) 0 unit SUBCUT QIDACHS [facility]; Protocol Last Admin: 01/18/21 12:24 Dose: 4 unit Documented by: KONSTANTIN Lisinopril (Lisinopril 40 Mg Tablet) 40 mg PO DAILY [facility]; Protocol Last Admin: 01/18/21 11:16 Dose: 40 mg Documented by: NAVJOT Mirtazapine (Mirtazapine 15 Mg Tablet) 45 mg PO BEDTIME [facility] Last Admin: 01/17/21 20:38 Dose: 45 mg Documented by: CARROLL Morphine Sulfate (Morphine Sulfate 2 Mg/Ml Cartridge) 2 mg IVPUSH Q2H PRN; Protocol PRN Reason: severe pain Multivitamins/Vitamin C (Multivitamin Tablet) 1 tab PO DAILY [facility] Last Admin: 01/18/21 11:14 Dose: 1 tab Documented by: NAVJOT Nicotine Polacrilex (Nicotine Polacrilex 2 Mg Gum) 2 mg BUCCAL Q2H PRN PRN Reason: Nicotine Cravings Nitroglycerin (Nitroglycerin 0.4 Mg Tab.Subl) 0.4 mg SUBLINGUAL Q5MX3 PRN PRN Reason: chest pain Omeprazole (Omeprazole 20 Mg Capsule.Dr) 20 mg PO BID@0630,1630 [facility] Last Admin: 01/18/21 06:16 Dose: 20 mg Documented by: CARROLL Ondansetron HCl (Ondansetron Hcl 4 Mg/2 Ml Vial) 4 mg IVPUSH Q8H PRN PRN Reason: Nausea and Vomiting Oxycodone HCl (Oxycodone Hcl Immed Release 5 Mg Tablet) 5 mg PO Q6H PRN PRN Reason: Pain (Scale Score 7-10) Last Admin: 01/18/21 12:31 Dose: 5 mg Documented by: KONSTANTIN Pharmacy Consult (Consult Rx Perform Med Rec) 1 each MISCELLANE ONCE PRN PRN Reason: Consult order Prednisone (Prednisone 20 Mg Tablet) 40 mg PO DAILY [facility] Last Admin: 01/18/21 11:15 Dose: 40 mg Documented by: NAVJOT Sodium Chloride (0.9 % Sodium Chloride Flush 3 Ml Syringe) 3 ml IVFLUSH QSHIFT [facility] Last Admin: 01/18/21 11:13 Dose: 3 ml Documented by: NAVJOT Labs CBC & Chem 7: 01/18/21 05:19 01/18/21 05:19 Labs: Laboratory Results - last 24 hr 01/17/21 01/17/21 01/17/21 07:24 14:19 16:11 MCV MCH MCHC RDW Plt Count MPV Absolute Nucleated RBC Nucleated RBC % (auto) PTT (Heparin Protocol) 75.3 D Anion Gap Estim Creat Clear Calc Estimated GFR POC Glucose 403 H* Random Glucose Estimat Average Glucose 283 Hemoglobin A1c % 11.5 Calcium Troponin I High Sens 01/17/21 01/17/21 01/18/21 20:17 20:23 03:49 MCV MCH MCHC RDW Plt Count MPV Absolute Nucleated RBC Nucleated RBC % (auto) PTT (Heparin Protocol) 106.9 H D 75.1 D Anion Gap Estim Creat Clear Calc Estimated GFR POC Glucose 267 H Random Glucose Estimat Average Glucose Hemoglobin A1c % Calcium Troponin I High Sens 01/18/21 01/18/21 01/18/21 05:19 05:19 05:19 MCV 90.1 MCH 29.6 MCHC 32.8 RDW 13.8 Plt Count 301 MPV 9.3 L Absolute Nucleated RBC 0.000 Nucleated RBC % (auto) 0.0 PTT (Heparin Protocol) Anion Gap 11 L Estim Creat Clear Calc 63.1 Estimated GFR > 60 POC Glucose Random Glucose 122 H Estimat Average Glucose Hemoglobin A1c % Calcium 9.3 Troponin I High Sens 818.3 H* D 01/18/21 01/18/21 01/18/21 07:45 10:15 11:25 MCV MCH MCHC RDW Plt Count MPV Absolute Nucleated RBC Nucleated RBC % (auto) PTT (Heparin Protocol) 66.7 Anion Gap Estim Creat Clear Calc Estimated GFR POC Glucose 117 H 200 H Random Glucose Estimat Average Glucose Hemoglobin A1c % Calcium Troponin I High Sens Assessment and Plan (1) CAD (coronary artery disease): Status: Acute (2) Hypertensive emergency: Status: Acute (3) NSTEMI (non-ST elevated myocardial infarction): Status: Acute Assessment and Plan: 60yo with DM2, PAD s/p fem/pop bypass, CAD, HTN, and asthma currently on prednisone and azithromycin for bronchitis presenting with acute onset of anginal-type chest pain associated with uncontrolled hypertension. # NSTEMI - no chest pain, no shortness of breath, will DC IV heparin x 48hr, continue prn NTG/morphine. Follow echo,? continue DAPT + B-anni and statin further treatment plan as per echo findings # HTN emergency - resolved, BP stable today, continue all home medication amlodipine, carvedilol, hydralazine, lisinopril, dose of hydralazine increased to 75 mg t.i.d. # bronchitis # acute exacerbation of mild persistent asthma - on prednisone 40 mg, will gradually wean, continue standing/prn nebs # PAD - continue statin + DAPT # DM2 with hyperglycemia - fluctuating blood sugars 117 at a.m., continue basal/bolus insulin, last A1c 9.5 on 06/25/20 # neuropathy - no acute symptoms, continue gabapentin # mood disorder - continue mirtazapine + escitalopram # tobacco use disorder strongly recommend to abstain from smoking. # VTE ppx - DC IV heparin Will place on subQ heparin. Quality Stroke Does the patient have a stroke diagnosis?: No VTE Prior VTE?: No VTE Risk Level:: Medical - moderate - high VTE Device Contraindication: N/A - Device Ordered VTE Drug Contraindication: N/A - Med Ordered
--- NOTE | 2021-01-18 13:48 | MHC.CM.PN ---
[per rounds pt dc plan remani ns home no servcies dc date tbd
[2021-01-18] MEDS: Heparin Sodium,Porcine 5,000 UNIT/ML VIAL 5000 UNIT SUBCUT (15:10)
--- NOTE | 2021-01-18 15:14 | PC.NURSE ---
BP 92 sys. repeat BP with smaller cuff 117 sys. will hold 3 pm dose hydralazine and reassess for next time.
[2021-01-18 16:00] LABS: Glucose, Whole Blood 244 mg/dL (60-115)
[2021-01-18 19:35] LABS: Glucose, Whole Blood 404 mg/dL (60-115)
[2021-01-18] MEDS: Mirtazapine 15 MG TABLET 45 MG PO (21:06)
[2021-01-19] MEDS: Heparin Sodium,Porcine 5,000 UNIT/ML VIAL 5000 UNIT SUBCUT (02:25)
[2021-01-19 03:05] VITALS: BP 134/60; PULSE 66; RESP 20; TEMP 37.2; O2SAT 95
[2021-01-19] MEDS: Omeprazole 20 MG CAPSULE.DR PO (05:07)
[2021-01-19 07:11] VITALS: BP 129/60; PULSE 71; RESP 16; TEMP 37.4; O2SAT 97
[2021-01-19 07:15] LABS: Glucose, Whole Blood 199 mg/dL (60-115)
[2021-01-19] MEDS: Insulin Lispro 100 UNIT/ML 3 ML VIAL SUBCUT (07:41)
[2021-01-19] MEDS: Fluticasone Propionate 100 MCG BLST.W.DEV 2 PUFF INHALE (08:00)
[2021-01-19] MEDS: Albuterol/Iprat 2.5/0.5MG 3 ML AMPUL.NEB INHALE (08:00)
[2021-01-19 08:01] VITALS: PULSE 71; O2SAT 97
--- NOTE | 2021-01-19 09:47 | P.DS_ITS ---
DS: Providers Provider Date of Service: 01/19/21 Date of admission: 01/16/21 10:25 Primary care physician: Unknown Physician Consults: 01/16/21 09:27 Consult to Cardiology Routine Consulting Provider: Clifton Vizcaino Reason for consultation: NSTEMI DS: Diagnosis Discharge Diagnosis (1) CAD (coronary artery disease): Status: Acute (2) Hypertensive emergency: Status: Acute (3) NSTEMI (non-ST elevated myocardial infarction): Status: Acute DS: Summary Hospital Course Hospital Course: History of presenting illness Chief Complaint: chest pain Ms Casanova is a 60 year-old woman with DM2 complicated by neuropathy and osteomyelitis, PAD s/p left femoral-popliteal bypass then angioplasty of left profundus femoris and left popliteal artery, CAD with 60-70% RCA stenosis, HTN, and asthma who was evaluated in the [facility] on 01/14/21 with a 1 week history of cough productive of clear sputum.? COVID-19 PCR was negative and she was discharged home with azithromycin and prednisone.? However, yesterday around 17:00, while she was cooking some plantains, she had the acute onset of severe non-radiating chest pressure associated with dyspnea and headache.? No diaphoresis.? She called EMS after 5 hours without improving and arrived in the ED hypertensive to 240/109, which improved quickly without intervention; currently 178/85.? CTA was negative for PE.? EKG showed subtle lateral [V5-V6] ST depressions.? Troponin-I was 6.3, then 23.4 after 2 hours, then 288.2 after 5 hours.? Chest pain resolved completely to the point where she wanted to leave the hospital.? Her SaO2 was normal.? Currently denies dyspnea and states the cough is much better. Hospital course 60yo with DM2, PAD s/p fem/pop bypass, CAD, HTN, and asthma currently on prednisone and azithromycin for bronchitis presenting with acute onset of anginal-type chest pain associated with uncontrolled hypertension. # NSTEMI, patient admitted to monitored floor treated with IV heparin, beta blockers and continued on dual antiplatelet therapy, patient had no recurrent chest pain during hospitalization and echocardiogram showed no wall motion abnormality and preserved EF, likely chest pressure due to bronchitis, since patient is stable cardiology recommend outpatient stress test patient is now being discharged home with strong recommendation to abstain from smoking and compliance with home medication # HTN emergency - resolved, BP stable today, recommend to continue all home medication , will have close outpatient follow-up with Cardiology with further medication adjustment if needed . # bronchitis with acute exacerbation of mild persistent asthma, will discharge patient on prednisone and recommend to continue nebulizer treatment and strongly recommend to abstain from smoking. # in regard to peripheral artery renal disease she will be continued on statin and antiplatelet therapy . # diabetes mellitus on insulin continue all home medication. # in regard to mood disorder neuropathy recommend home medications and good blood sugar control. Time Spent with Patient Time attestation: Total time spent providing and/or coordinating discharge services: Discharge coordination time: Greater than 30 minutes Quality: Stroke Does the patient have a stroke diagnosis?: No Physical Exam Vital Signs: Vital Signs: Last Vital Signs Temp 99.3 F 01/19/21 07:11 Pulse 71 01/19/21 08:01 Resp 16 01/19/21 07:11 BP 129/60 01/19/21 07:11 Pulse Ox 97 01/19/21 07:11 BMI result Body Mass Index 25.6 General:? Awake alert x3, no acute distress Neck: supple, no JVD Lungs: clear to auscultation bilaterally,no wheeze Heart: regular rate and rhythm, no murmurs Abd: soft, non-tender, non-distended, bowel sounds audible Ext: no edema Skin: warm and dry Neuro: alert and oriented x3, no focal findings Psych: appropriate affect DS: Data Data Completed and Pending Completed studies during hospitalization [Text1]: Procedures Extirpation of Matter from Left Femoral Artery, Open Approach (05/09/20) Extirpation of Matter from Left Popliteal Artery, Open Approach (05/09/20) Fluoroscopy of Aorta and Bilateral Lower Extremity Arteries (05/09/20) Insertion of Infusion Device into Superior Vena Cava, Percutaneous Approach (05/09/20) Supplement Left Femoral Artery with Synthetic Substitute, Open Approach (05/09/20) Supplement Left Popliteal Artery with Synthetic Substitute, Open Approach (05/09/20) Transfusion of Nonautologous Red Blood Cells into Peripheral Vein, Percutaneous Approach (05/09/20) Labs on day of discharge: Laboratory Results - last 24 hr 01/18/21 01/18/21 01/18/21 10:15 11:25 15:52 PTT (Heparin Protocol) 66.7 POC Glucose 200 H 244 H 01/18/21 01/19/21 19:30 07:06 PTT (Heparin Protocol) POC Glucose 404 H* 199 H Discharge Plan Discharge Patient Disposition: Home, Self-Care Discharge Diagnosis: Non ST-elevation CO Mild acute asthma exacerbation Acute bronchitis Referrals: Physician,Unknown J [Primary Care Provider] - 1 Week Discharge Medications: New prednisone 20 mg tablet 20 mg PO DAILY Qty: 3 RF: 0 nicotine (polacrilex) 2 mg Gum 2 mg buccal Q2H PRN (Reason: Nicotine Cravings) Qty: 20 RF: 0 albuterol sulfate 2.5 mg /3 mL (0.083 %) Solution For Nebulization 2.5 mg inhalation Q4H PRN (Reason: shortness of breath/wheeze) Qty: 100 RF: 0 Continued hydrochlorothiazide 25 mg tablet 25 mg PO DAILY Qty: 30 RF: 0 pioglitazone 15 mg tablet 15 mg PO DAILY 30 Days Qty: 30 RF: 11 metformin 1,000 mg Tablet 1,000 mg PO BID RF: 0 ferrous sulfate 325 mg (65 mg iron) tablet 325 mg PO BID Qty: 60 RF: 0 clopidogrel [Plavix] 75 mg tablet 75 mg PO DAILY Qty: 30 RF: 5 oxycodone 5 mg Tablet 5 mg PO Q6H PRN (Reason: Pain (Scale Score 7-10)) RF: 0 amlodipine 10 mg Tablet 10 mg PO DAILY RF: 0 docusate sodium 100 mg Capsule 100 mg PO BID RF: 0 hydralazine 50 mg Tablet 50 mg PO TID RF: 0 pantoprazole [Protonix] 40 mg tablet,delayed release (DR/EC) 40 mg PO BID RF: 0 lidocaine [Lidoderm] 5 % Adhesive Patch,Medicated 1 patch TOPICAL DAILY RF: 0 fluticasone propionate 50 mcg/actuation [place] [facility],Suspension 2 spray INTRANASAL DAILY RF: 0 acetaminophen [Arthritis Pain Relief (acetam)] 650 mg Tablet Extended Release 650 mg PO Q8H PRN (Reason: Pain (Scale Score 1-3)) RF: 0 Flovent HFA 110 mcg/actuation Hfa Aerosol Inhaler 2 puff INHALATION BID RF: 0 Trulicity 0.75 mg/0.5 mL pen injector 0.75 mg subcut QWEEK 30 Days Qty: 2.5 RF: 11 carvedilol [Coreg] 25 mg tablet 25 mg PO BID RF: 0 multivitamin Tablet 1 tab PO DAILY RF: 0 lisinopril 40 mg tablet 40 mg PO DAILY RF: 0 gabapentin 800 mg tablet 800 mg PO TID RF: 0 aspirin [Adult Low Dose Aspirin] 81 mg tablet,delayed release (DR/EC) 81 mg PO DAILY RF: 0 escitalopram oxalate [Lexapro] 20 mg tablet 20 mg PO DAILY RF: 0 mirtazapine 45 mg tablet 45 mg PO BEDTIME RF: 0 atorvastatin [Lipitor] 80 mg tablet 80 mg PO DAILY RF: 0 Tresiba FlexTouch U-100 100 unit/mL (3 mL) insulin pen 10 unit subcut DAILY RF: 0 Discontinued (DME) walker Misc See Rx Instructions .ROUTE .MEDSUPPLY Qty: 1 RF: 0 (DME) FreeStyle Lite Strips Strip See Rx Instructions .ROUTE .MEDSUPPLY Qty: 100 RF: 11 (DME) lancets [FreeStyle Lancets] 28 gauge misc See Rx Instructions .ROUTE .MEDSUPPLY Qty: 100 RF: 11 (DME) blood-glucose meter [FreeStyle Lite Meter] Kit See Rx Instructions .ROUTE .MEDSUPPLY Qty: 1 RF: 0 Discharge Orders: Discharge Order (Routine); Ordered 01/19/21 Ordered By: Talon Luna Diet: diabetic diet and low fat, low cholesterol Activity on Discharge: As tolerated Stand Alone Forms: Patient Portal Discharge page Care Plan Goals: Non ST-elevation CO, take all medications as prescribed and follow-up with cardiology, strongly recommend to abstain from smoking In regard to bronchitis take prednisone for couple more days and continue all home inhalers Follow diabetic diet and good blood sugar control Health Concerns: Take all above medications as prescribed Plan of Treatment: Outpatient follow-up with Cardiology to undergo stress testing in next 1-2 weeks outpatient follow-up with primary care physician in next 1-2 weeks Assessment: As above
--- NOTE | 2021-01-19 09:52 | MHC.CM.NN ---
Patient has been medically cleared for dc to home today, no services.
--- NOTE | 2021-01-19 10:59 | P.PNCA_ITS ---
Subjective Subjective Date of Service: 01/20/21 Principal diagnosis: HTN emergency, NSTEMI Physical Exam Vital Signs: Last Vital Signs Temp 99.3 F 01/19/21 07:11 Pulse 71 01/19/21 08:01 Resp 16 01/19/21 07:11 BP 129/60 01/19/21 07:11 Pulse Ox 97 01/19/21 07:11 BMI result Body Mass Index 25.6 Objective Labs and Meds Result diagrams: 01/18/21 05:19 01/18/21 05:19 Lab results: Laboratory Results - last 24 hr 01/18/21 01/18/21 01/18/21 11:25 15:52 19:30 POC Glucose 200 H 244 H 404 H* 01/19/21 07:06 POC Glucose 199 H Progress Note: A&P Fall Risk Details Current Medications: Current Medications Acetaminophen (Acetaminophen 325 Mg Tablet) 650 mg PO Q6H PRN PRN Reason: Pain, Mild (Pain Scale 1-3) Last Admin: 01/18/21 11:20 Dose: 650 mg Documented by: Albuterol Sulfate (Albuterol Sulfate (0.083%) 2.5 Mg/3 Ml Vial.Neb) 2.5 mg INHALE Q2H PRN PRN Reason: shortness of breath/wheeze Albuterol/Ipratropium (Albuterol/Iprat 2.5/0.5mg 3 Ml Ampul.Neb) 3 ml INHALE RQ4H WHILE AWAKE [facility] Last Admin: 01/19/21 08:00 Dose: 3 ml Documented by: Amlodipine Besylate (Amlodipine Besylate 10 Mg Tablet) 10 mg PO DAILY [facility]; Protocol Last Admin: 01/18/21 11:16 Dose: 10 mg Documented by: Aspirin (Aspirin Enteric Coated 81 Mg Tablet.) 81 mg PO DAILY [facility] Last Admin: 01/18/21 11:15 Dose: 81 mg Documented by: Atorvastatin Calcium (Atorvastatin Calcium 80 Mg Tablet) 80 mg PO DAILY [facility] Last Admin: 01/18/21 11:17 Dose: 80 mg Documented by: Carvedilol (Carvedilol 25 Mg Tablet) 25 mg PO BID [facility]; Protocol Last Admin: 01/18/21 21:05 Dose: 25 mg Documented by: Clopidogrel Bisulfate (Clopidogrel Bisulfate 75 Mg Tablet) 75 mg PO DAILY [facility] Last Admin: 01/18/21 11:18 Dose: 75 mg Documented by: Dextrose (Dextrose 50 % 25 Gm/50 Ml Vial) 25 gm IVPUSH Q15M PRN; Protocol PRN Reason: per Hypoglycemia Standing Ord. Docusate Sodium (Docusate Sodium 100 Mg Capsule) 100 mg PO BID [facility] Last Admin: 01/18/21 21:06 Dose: 100 mg Documented by: Escitalopram Oxalate (Escitalopram Oxalate 20 Mg Tablet) 20 mg PO DAILY [facility] Last Admin: 01/18/21 11:15 Dose: 20 mg Documented by: Ferrous Sulfate (Ferrous Sulfate 324 Mg Tablet.Dr) 324 mg PO BID [facility] Last Admin: 01/18/21 21:06 Dose: 324 mg Documented by: Fluticasone Propionate (Fluticasone Propionate Nasal 16 Gm Adrian) 2 spray NOSTRIL-B DAILY [facility] Last Admin: 01/18/21 11:18 Dose: 2 spray Documented by: Fluticasone Propionate (Fluticasone Propionate 100 Mcg Blst.W.Dev) 2 puff INHALE RBID [facility] Last Admin: 01/19/21 08:00 Dose: 2 puff Documented by: Gabapentin (Gabapentin 400 Mg Capsule) 800 mg PO TID [facility] Last Admin: 01/18/21 21:00 Dose: 800 mg Documented by: Glucose (Glucose Gel 15 Gm Gel..Gram.) 15 gm PO Q15M PRN; Protocol PRN Reason: per Hypoglycemia Standing Ord. Heparin Sodium (Porcine) (Heparin Sodium,Porcine 5,000 Unit/Ml Vial) 5,000 unit SUBCUT Q12H [facility] Last Admin: 01/19/21 02:25 Dose: 5,000 unit Documented by: Hydralazine HCl (Hydralazine Hcl 25 Mg Tablet) 75 mg PO TID [facility]; Protocol Last Admin: 01/18/21 21:05 Dose: 75 mg Documented by: Insulin Glargine (Insulin Glargine,Hum.Rec.Anlog 100 Unit/Ml 10 Ml Vial) 14 unit SUBCUT DAILY [facility] Last Admin: 01/18/21 11:18 Dose: 14 unit Documented by: Insulin Human Lispro (Insulin Lispro 100 Unit/Ml 3 Ml Vial) 0 unit SUBCUT QIDACHS [facility]; Protocol Last Admin: 01/19/21 07:41 Dose: 2 unit Documented by: Lisinopril (Lisinopril 40 Mg Tablet) 40 mg PO DAILY [facility]; Protocol Last Admin: 01/18/21 11:16 Dose: 40 mg Documented by: Mirtazapine (Mirtazapine 15 Mg Tablet) 45 mg PO BEDTIME [facility] Last Admin: 01/18/21 21:06 Dose: 45 mg Documented by: Morphine Sulfate (Morphine Sulfate 2 Mg/Ml Cartridge) 2 mg IVPUSH Q2H PRN; Protocol PRN Reason: severe pain Multivitamins/Vitamin C (Multivitamin Tablet) 1 tab PO DAILY [facility] Last Admin: 01/18/21 11:14 Dose: 1 tab Documented by: Nicotine Polacrilex (Nicotine Polacrilex 2 Mg Gum) 2 mg BUCCAL Q2H PRN PRN Reason: Nicotine Cravings Nitroglycerin (Nitroglycerin 0.4 Mg Tab.Subl) 0.4 mg SUBLINGUAL Q5MX3 PRN PRN Reason: chest pain Omeprazole (Omeprazole 20 Mg Capsule.Dr) 20 mg PO BID@0630,1630 [facility] Last Admin: 01/19/21 05:07 Dose: 20 mg Documented by: Ondansetron HCl (Ondansetron Hcl 4 Mg/2 Ml Vial) 4 mg IVPUSH Q8H PRN PRN Reason: Nausea and Vomiting Oxycodone HCl (Oxycodone Hcl Immed Release 5 Mg Tablet) 5 mg PO Q6H PRN PRN Reason: Pain (Scale Score 7-10) Last Admin: 01/18/21 21:04 Dose: 5 mg Documented by: Pharmacy Consult (Consult Rx Perform Med Rec) 1 each MISCELLANE ONCE PRN PRN Reason: Consult order Prednisone (Prednisone 20 Mg Tablet) 20 mg PO DAILY [facility] Sodium Chloride (0.9 % Sodium Chloride Flush 3 Ml Syringe) 3 ml IVFLUSH QSHIFT [facility] Last Admin: 01/18/21 21:06 Dose: 3 ml Documented by: Time Spent With Patient Time: Total time spent is greater than 50% in coordination of care (as documented) at patient's floor/unit and/or counseling patient: Progress Note: Quality Stroke Does the patient have a stroke diagnosis?: No
[2021-01-19] MEDS: Fluticasone Propionate Nasal 16 GM SPRAY 2 SPRAY NOSTRIL-B (11:12)
[2021-01-19] MEDS: Multivitamin TABLET 1 TAB PO (11:12)
[2021-01-19] MEDS: 0.9 % Sodium Chloride Flush 3 ML SYRINGE IVFLUSH (11:12)
[2021-01-19] MEDS: Gabapentin 400 MG CAPSULE 800 MG PO (11:12)
[2021-01-19] MEDS: Insulin Glargine,Hum.rec.anlog 100 UNIT/ML 10 ML VIAL 14 UNIT SUBCUT (11:12)
[2021-01-19] MEDS: hydrALAZINE HCl 25 MG TABLET 75 MG PO (11:12)
[2021-01-19] MEDS: Escitalopram Oxalate 20 MG TABLET PO (11:13)
[2021-01-19] MEDS: carvediloL 25 MG TABLET PO (11:13)
[2021-01-19] MEDS: Clopidogrel Bisulfate 75 MG TABLET PO (11:13)
[2021-01-19] MEDS: Atorvastatin Calcium 80 MG TABLET PO (11:13)
[2021-01-19] MEDS: Docusate Sodium 100 MG CAPSULE PO (11:13)
[2021-01-19] MEDS: amLODIPine Besylate 10 MG TABLET PO (11:13)
[2021-01-19] MEDS: lisinopriL 40 MG TABLET PO (11:13)
[2021-01-19] MEDS: predniSONE 20 MG TABLET PO (11:14)
[2021-01-19] MEDS: Aspirin Enteric Coated 81 MG TABLET.DR PO (11:14)
[2021-01-19] MEDS: Ferrous Sulfate 324 MG TABLET.DR PO (11:14)
--- NOTE | 2021-01-19 11:15 | P.PNCA_ITS ---
Subjective Subjective Date of Service: 01/19/21 <JACQUELINE Frazier - Last Filed: 01/19/21 11:26> 01/20/21 <Ghanshyam Daniel MD - Last Filed: 01/20/21 18:34> Principal diagnosis: HTN emergency, NSTEMI <JACQUELINE Frazier - Last Filed: 01/19/21 11:26> Interval history: Cardiology follow up for the above. Seen at 0915. Today she reports feeling well and would like to go home. No recurrent chest pains. Breathing is comfortable. Slept well. No palpitation, dizziness. Up to bathroom on own without issues. BP better controlled. <JACQUELINE Frazier - Last Filed: 01/19/21 11:26> Review of Systems Review of Systems as above <JACQUELINE Frazier - Last Filed: 01/19/21 11:26> Yes all other systems are reviewed and are negative <JACQUELINE Frazier - Last Filed: 01/19/21 11:26> Physical Exam Vital Signs: Last Vital Signs Temp 99.3 F 01/19/21 07:11 Pulse 71 01/19/21 08:01 Resp 16 01/19/21 07:11 BP 129/60 01/19/21 07:11 Pulse Ox 97 01/19/21 07:11 BMI result Body Mass Index 25.6 <JACQUELINE Frazier - Last Filed: 01/19/21 11:26> Const General: cooperative, healthy appearing, no acute distress, alert and awake <JACQUELINE Frazier - Last Filed: 01/19/21 11:26> Orientation/consciousness: patient oriented x3 <JACQUELINE Frazier - Last Filed: 01/19/21 11:26> Neck Neck: Yes normal visual inspection and Yes no JVD <JACQUELINE Frazier Last Filed: 01/19/21 11:26> Resp Effort & Inspection: normal respiratory effort, able to speak in complete sentences and not labored <JACQUELINE Frazier - Last Filed: 01/19/21 11:26> Auscultation: clear to auscultation bilaterally, no crackles, no rales, no rhonchi and no wheezes <Nell JaureguiTARAC - Last Filed: 01/19/21 11:26> Cardio Palpation: normal PMI <JASMEET FrazierC - Last Filed: 01/19/21 11:26> Rate: regular rate <Nell Jauregui [employer] REP - Last Filed: 01/19/21 11:26> Rhythm: regular rhythm <Nell Jauregui [employer] REP - Last Filed: 01/19/21 11:26> Heart sounds: S1 normal heart sound present and S2 normal heart sound present <Nell ShaniaTARAC - Last Filed: 01/19/21 11:26> Peripheral pulses: Peripheral pulses 2+ throughout <Nell JaureguiTARA - Last Filed: 01/19/21 11:26> GI Inspection: Yes normal to inspection <Nell JaureguiTARA - Last Filed: 01/19/21 11:26> Neuro General: patient oriented x3 <Nell JaureguiTARA - Last Filed: 01/19/21 11:26> Extrem General: Yes normal to inspection and No edema <Nell JaureguiTARA-C - Last Filed: 01/19/21 11:26> Objective Labs and Meds Result diagrams: : 01/18/21 05:19 01/18/21 05:19 <Nell JaureguiTARA - Last Filed: 01/19/21 11:26> Lab results: Laboratory Results - last 24 hr 01/18/21 01/18/21 01/18/21 11:25 15:52 19:30 POC Glucose 200 H 244 H 404 H* 01/19/21 07:06 POC Glucose 199 H <Nell JaureguiTARA-C - Last Filed: 01/19/21 11:26> Progress Note: A&P Assessment and plan (1) NSTEMI (non-ST elevated myocardial infarction): Status: Acute <Nell JaureguiJASMEET - Last Filed: 01/19/21 11:26> Assessment and Plan: Hx of CAD with known moderate RCA stenosis that has been managed medically. This admit, presented with acute CP episode that occurred while cooking. Troponin pj up to 818.? EKG with SR, nonspecific ST abn. Was on Heparin drip for 48 hr. No further reports of CP. Tele stable SR, 60s-70s.? Echo done yesterday shows normal EF, no regional WMA, mild . Her NSTEMI is most likely secondary type event related to her HTN emergency on admit. BP now better controlled. She will need ischemic eval as outpt. Will plan for outpt nuclear stress test. Continue aspirin, high dose atorvastatin, carvedilol, plavix. Can be discharged and we will arrange for outpt cardiology follow up. <JACQUELINE Frazier - Last Filed: 01/19/21 11:26> (2) CAD (coronary artery disease): Status: Acute <JACQUELINE Frazier - Last Filed: 01/19/21 11:26> Assessment and Plan: as above <JACQUELINE Frazier - Last Filed: 01/19/21 11:26> (3) Hypertensive emergency: Status: Acute <JASMEET FrazierC - Last Filed: 01/19/21 11:26> Assessment and Plan: Hx of HTN. BP up to 240/109 on admit. Troponins elevated. Managed medically. Treated for bronchitis as well. Hydralazine was increased. Home HCTZ has been held for unclear reason. BPs better controlled at this time. No chest pains, Bronchitis improved. Planning for discharge. Discussed meds with Dr Sonia lynn. Will have her resume her usual home HCTZ, hydralazine. Continue Amlodipine, carvedilol, lisinopril. BP can be reeval as outpt and meds further adjusted as needed. <JASMEET FrazierC - Last Filed: 01/19/21 11:26> Fall Risk Details Current Medications: Current Medications Acetaminophen (Acetaminophen 325 Mg Tablet) 650 mg PO Q6H PRN PRN Reason: Pain, Mild (Pain Scale 1-3) Last Admin: 01/18/21 11:20 Dose: 650 mg Documented by: Albuterol Sulfate (Albuterol Sulfate (0.083%) 2.5 Mg/3 Ml Vial.Neb) 2.5 mg INHALE Q2H PRN PRN Reason: shortness of breath/wheeze Albuterol/Ipratropium (Albuterol/Iprat 2.5/0.5mg 3 Ml Ampul.Neb) 3 ml INHALE RQ4H WHILE AWAKE [facility] Last Admin: 01/19/21 08:00 Dose: 3 ml Documented by: Amlodipine Besylate (Amlodipine Besylate 10 Mg Tablet) 10 mg PO DAILY [facility]; Protocol Last Admin: 01/19/21 11:13 Dose: 10 mg Documented by: Aspirin (Aspirin Enteric Coated 81 Mg Tablet.) 81 mg PO DAILY [facility] Last Admin: 01/19/21 11:14 Dose: 81 mg Documented by: Atorvastatin Calcium (Atorvastatin Calcium 80 Mg Tablet) 80 mg PO DAILY [facility] Last Admin: 01/19/21 11:13 Dose: 80 mg Documented by: Carvedilol (Carvedilol 25 Mg Tablet) 25 mg PO BID [facility]; Protocol Last Admin: 01/19/21 11:13 Dose: 25 mg Documented by: Clopidogrel Bisulfate (Clopidogrel Bisulfate 75 Mg Tablet) 75 mg PO DAILY [facility] Last Admin: 01/19/21 11:13 Dose: 75 mg Documented by: Dextrose (Dextrose 50 % 25 Gm/50 Ml Vial) 25 gm IVPUSH Q15M PRN; Protocol PRN Reason: per Hypoglycemia Standing Ord. Docusate Sodium (Docusate Sodium 100 Mg Capsule) 100 mg PO BID [facility] Last Admin: 01/19/21 11:13 Dose: 100 mg Documented by: Escitalopram Oxalate (Escitalopram Oxalate 20 Mg Tablet) 20 mg PO DAILY [facility] Last Admin: 01/19/21 11:13 Dose: 20 mg Documented by: Ferrous Sulfate (Ferrous Sulfate 324 Mg Tablet.) 324 mg PO BID [facility] Last Admin: 01/19/21 11:14 Dose: 324 mg Documented by: Fluticasone Propionate (Fluticasone Propionate Nasal 16 Gm [place]) 2 spray NOSTRIL-B DAILY [facility] Last Admin: 01/19/21 11:12 Dose: 2 spray Documented by: Fluticasone Propionate (Fluticasone Propionate 100 Mcg Blst.W.Dev) 2 puff INHALE RBID [facility] Last Admin: 01/19/21 08:00 Dose: 2 puff Documented by: Gabapentin (Gabapentin 400 Mg Capsule) 800 mg PO TID [facility] Last Admin: 01/19/21 11:12 Dose: 800 mg Documented by: Glucose (Glucose Gel 15 Gm Gel..Gram.) 15 gm PO Q15M PRN; Protocol PRN Reason: per Hypoglycemia Standing Ord. Heparin Sodium (Porcine) (Heparin Sodium,Porcine 5,000 Unit/Ml Vial) 5,000 unit SUBCUT Q12H [facility] Last Admin: 01/19/21 02:25 Dose: 5,000 unit Documented by: Hydralazine HCl (Hydralazine Hcl 25 Mg Tablet) 75 mg PO TID [facility]; Protocol Last Admin: 01/19/21 11:12 Dose: 75 mg Documented by: Insulin Glargine (Insulin Glargine,Hum.Rec.Anlog 100 Unit/Ml 10 Ml Vial) 14 unit SUBCUT DAILY [facility] Last Admin: 01/19/21 11:12 Dose: 14 unit Documented by: Insulin Human Lispro (Insulin Lispro 100 Unit/Ml 3 Ml Vial) 0 unit SUBCUT QIDACHS [facility]; Protocol Last Admin: 01/19/21 07:41 Dose: 2 unit Documented by: Lisinopril (Lisinopril 40 Mg Tablet) 40 mg PO DAILY [facility]; Protocol Last Admin: 01/19/21 11:13 Dose: 40 mg Documented by: Mirtazapine (Mirtazapine 15 Mg Tablet) 45 mg PO BEDTIME [facility] Last Admin: 01/18/21 21:06 Dose: 45 mg Documented by: Morphine Sulfate (Morphine Sulfate 2 Mg/Ml Cartridge) 2 mg IVPUSH Q2H PRN; Protocol PRN Reason: severe pain Multivitamins/Vitamin C (Multivitamin Tablet) 1 tab PO DAILY [facility] Last Admin: 01/19/21 11:12 Dose: 1 tab Documented by: Nicotine Polacrilex (Nicotine Polacrilex 2 Mg Gum) 2 mg BUCCAL Q2H PRN PRN Reason: Nicotine Cravings Nitroglycerin (Nitroglycerin 0.4 Mg Tab.Subl) 0.4 mg SUBLINGUAL Q5MX3 PRN PRN Reason: chest pain Omeprazole (Omeprazole 20 Mg Capsule.Dr) 20 mg PO BID@0630,1630 [facility] Last Admin: 01/19/21 05:07 Dose: 20 mg Documented by: Ondansetron HCl (Ondansetron Hcl 4 Mg/2 Ml Vial) 4 mg IVPUSH Q8H PRN PRN Reason: Nausea and Vomiting Oxycodone HCl (Oxycodone Hcl Immed Release 5 Mg Tablet) 5 mg PO Q6H PRN PRN Reason: Pain (Scale Score 7-10) Last Admin: 01/18/21 21:04 Dose: 5 mg Documented by: Pharmacy Consult (Consult Rx Perform Med Rec) 1 each MISCELLANE ONCE PRN PRN Reason: Consult order Prednisone (Prednisone 20 Mg Tablet) 20 mg PO DAILY [facility] Last Admin: 01/19/21 11:14 Dose: 20 mg Documented by: Sodium Chloride (0.9 % Sodium Chloride Flush 3 Ml Syringe) 3 ml IVFLUSH QSHIFT [facility] Last Admin: 01/19/21 11:12 Dose: 3 ml Documented by: <JACQUELINE Frazier - Last Filed: 01/19/21 11:26> Time Spent With Patient Time: Total time spent is greater than 50% in coordination of care (as documented) at patient's floor/unit and/or counseling patient: 20 <JACQUELINE Frazier - Last Filed: 01/19/21 11:26> Time with patient: 15 - 24 minutes <JACQUELINE Frazier - Last Filed: 01/19/21 11:26> Progress Note: Quality Stroke Does the patient have a stroke diagnosis?: No <JACQUELINE Frazier - Last Filed: 01/19/21 11:26> Procedures Date of Service Date of Service: 01/19/21 <JACQUELINE Frazier - Last Filed: 01/19/21 11:26>
== END 2021-01-19 12:45 | disposition home or self-care (01) | DRG 190 ==
LOC: HO.ED 06:13 → HO.EDOVER 10:30 → HO.IMC 01-17 11:51
PROVIDERS: Emergency Medicine; Internal Medicine; Admitting Provider Family Medicine; Emergency Provider Emergency Medicine; Visit Provider Hospitalist
DX: I21.4 Non-ST elevation (NSTEMI) myocardial infarction (principal); E11.40 Type 2 diabetes mellitus with diabetic neuropathy, unspecified; J45.31 Mild persistent asthma with (acute) exacerbation; E11.51 Type 2 diabetes mellitus with diabetic peripheral angiopathy without gangrene; E78.5 Hyperlipidemia, unspecified; J40 Bronchitis, not specified as acute or chronic; I25.10 Atherosclerotic heart disease of native coronary artery without angina pectoris; I10 Essential (primary) hypertension; Z91.040 Latex allergy status; F17.210 Nicotine dependence, cigarettes, uncomplicated; I16.1 Hypertensive emergency; F39 Unspecified mood [affective] disorder; Z20.822 Contact with and (suspected) exposure to COVID-19; Z71.6 Tobacco abuse counseling; Z88.6 Allergy status to analgesic agent; Z79.4 Long term (current) use of insulin; Z79.82 Long term (current) use of aspirin; Z79.02 Long term (current) use of antithrombotics/antiplatelets; Z79.891 Long term (current) use of opiate analgesic; Z79.899 Other long term (current) drug therapy
CPT/HCPCS: 36415; 71045; 71275; 80048; 80076; 82947; 83036; 83735; 84484; 85025; 85027; 85379; 85610; 85730; 87635; 93005; 93306; 94640; 94644; 96374; 96375; 99285; J2270; Q9967

== ENCOUNTER 2021-03-17 12:21 | Outpatient (REF) | payer MEDICAID, SELFPAY ==
--- NOTE | ~2021-03-17 | US_ITS ---
EXAMINATION: NONINVASIVE ASSESSMENT OF THE ARTERIES OF THE LEFT LOWER EXTREMITY WITH LOWER EXTREMITY DUPLEX CLINICAL INFORMATION: Claudication TECHNIQUE: Ankle pulse volume recordings, ankle pressure measurements and ankle brachial indices were obtained of the lower extremity arterial system bilaterally in addition to duplex Doppler techniques with wave form analysis and measurement of velocities in the common femoral, profunda femoral, superficial femoral, popliteal and tibial arteries. The study was performed only at rest. COMPARISON: 11/11/2020 FINDINGS: RIGHT LE. The right ankle-brachial index is: 0.48 * >0.97-1.25 = normal - no significant arterial disease * 0.75-0.96 = mild peripheral arterial disease * 0.5-0.74 = moderate peripheral arterial disease * <0.50 = severe peripheral arterial disease Right direct duplex Doppler findings: Common femoral artery: 156 cm/sec; monophasic waveform Profunda artery: 177 cm/sec; monophasic waveform Superficial femoral artery proximal: Occluded Superficial femoral artery mid portion: Occluded Superficial femoral artery distal: Occluded Popliteal artery: 68 cm/sec; monophasic waveform Posterior tibial artery: 23 cm/sec; monophasic waveform Peroneal artery: 40 cm/sec; monophasic waveform LEFT LEG: The patient was unable to tolerate measurement of the left BEVERLEY. Left direct duplex Doppler findings: Common femoral artery: 114 cm/sec; multiphasic waveform Profunda artery: 96 cm/sec; monophasic waveform Superficial femoral artery proximal: Occluded Superficial femoral artery mid portion: Occluded Superficial femoral artery distal: Occluded Popliteal artery: 191 cm/sec; multiphasic waveform Posterior tibial artery: 45 cm/sec; multiphasic waveform Peroneal artery: Occluded cm/sec Left femoral-popliteal bypass graft: Grayscale images demonstrate hypoechoic collection surrounding the proximal bypass graft. Inflow artery: 114 cm/s; multiphasic Proximal anastomosis: 268 cm/s; monophasic Proximal bypass graft: 70 cm/s; multiphasic Mid bypass graft: 45 cm/s, multiphasic Distal bypass graft: 57 cm/s; multiphasic Distal anastomosis: 46 cm/s; monophasic Outflow artery: 133 cm/s; multiphasic Incidental note is made of a 2.0 x 0.8 x 4.5 cm fluid collection at the right groin. US/US BEVERLEY complete IMPRESSION: 1. The left femoral-popliteal bypass graft is patent. There is elevated velocity noted at the proximal anastomosis, suggesting possible stenosis. 2. The patient was unable to tolerate BEVERLEY measurement of the left lower extremity. 3. Severe peripheral arterial disease of the right leg with BEVERLEY of 0.48, previously 0.59. 4. Nonspecific fluid collection in the right groin without vascularity to suggest pseudoaneurysm. 5. 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
--- NOTE | ~2021-03-17 | US_ITS ---
EXAMINATION: US-BILAT LOW EXTR ARTERIAL DOP CLINICAL INFORMATION: Peripheral vascular disease. COMPARISON: 11/11/2020 TECHNIQUE: Real-time ultrasound and Doppler techniques (integrating B-mode 2-D vascular images, Doppler spectral analysis and color flow Doppler imaging) were utilized to interrogate the lower extremities. FINDINGS: Right lower extremity: Common femoral artery: 156 cm/sec; biphasic waveform Superficial femoral artery proximal: Occluded Superficial femoral artery mid portion: Occluded Superficial femoral artery distal: Occluded Profunda artery: 177 cm/sec; biphasic waveform Popliteal artery: 68 cm/sec; biphasic waveform Posterior tibial artery: 41 cm/sec; biphasic waveform Left lower extremity: Common femoral artery: 114 cm/sec; triphasic waveform Superficial femoral artery proximal: Occluded Superficial femoral artery mid portion: Occluded Superficial femoral artery distal: Occluded Profunda artery: 96 cm/sec; biphasic waveform Popliteal artery: 191 cm/sec; triphasic waveform Posterior tibial artery: 45 cm/sec; triphasic waveform There is a left femoropopliteal bypass graft in place. There are elevated velocities with monophasic flow at the proximal anastomosis with peak systolic velocity of 268 cm/s. The proximal mid and distal bypass graft is patent with diastolic flow reversal. The distal anastomosis is patent with monophasic flow, the outflow artery is patent. ADDITIONAL FINDINGS: There is a small 4.5 cm fluid collection in the right groin. Small amount of fluid around the proximal bypass graft on the left.. US/US arterial duplex LE BI IMPRESSION: Right lower extremity: The right SFA is occluded with reconstitution of flow in the popliteal artery likely via collaterals. Left lower extremity: The [place] SFA is occluded. There is narrowing with elevated velocities in the proximal anastomosis. The bypass graft is patent with patent distal anastomosis. There is some fluid around the proximal bypass anastomosis.
== END 2021-03-17 12:22 | disposition home or self-care (01) ==
LOC: HO.US 12:21
PROVIDERS: PCP Family Medicine; Visit Provider Surgery Vascular Surgery
DX: I73.9 Peripheral vascular disease, unspecified (principal)
CPT/HCPCS: 93923; 93925

== ENCOUNTER → 2021-03-30 12:56 | Outpatient (BNVA) | payer MEDICAID, SELFPAY | PROVIDERS: PCP Family Medicine; Visit Provider Surgery Vascular Surgery | DX: I73.9 Peripheral vascular disease, unspecified (principal); L97.229 Non-pressure chronic ulcer of left calf with unspecified severity | CPT/HCPCS: 99212 ==

== ENCOUNTER 2021-04-20 12:58 | Outpatient (REF) | payer MEDICAID, SELFPAY ==
[2021-04-20 14:12] LABS: Blood Urea Nitrogen 18 mg/dL (9-16); Estimated Glomerular Filt Rate 53
== END 2021-04-20 12:59 | disposition home or self-care (01) ==
LOC: HO.LAB 12:58
PROVIDERS: PCP Family Medicine; Visit Provider Surgery Vascular Surgery
DX: I73.9 Peripheral vascular disease, unspecified (principal)
CPT/HCPCS: 36415; 82565; 84520

== ENCOUNTER 2021-04-23 10:50 | Outpatient (REF) | payer MEDICAID, SELFPAY ==
--- NOTE | ~2021-04-23 | CT_ITS ---
EXAMINATION: CTA ABDOMEN, PELVIS AND LOWER EXTREMITY RUNOFF WITH CONTRAST CLINICAL INFORMATION: Peripheral vascular disease. COMPARISON: Lower extremity arterial exam 03/17/2021, CT chest 01/20/2020, CT abdomen and pelvis 01/16/2020. TECHNIQUE: Routine abdominal aorta and lower extremity runoff CTA protocol with contrast was performed. 100 mL of Omnipaque 350 was administered. 3-D POSTPROCESSING: Multiple 3-D angiographic images were processed from the initial data set by the [facility] under concurrent physician supervision. Additional 2-D coronal and sagittal reformatted images and axial 3-D maximum intensity projection MIP images are generated on the CT workstation. This CT examination was performed using dose optimization techniques as appropriate, variously including the following: *Automated exposure control. *Adjustment of mA and/or kV according to patient size (this includes techniques or standardized protocols for targeted exams where dose is matched to indication/reason for exam; i.e. extremities or head). *Use of iterative reconstruction technique. DLP: 632 mGy-cm FINDINGS: VASCULAR: ABDOMINAL AORTA: Calcific atherosclerotic plaque is present in the abdominal aorta. There is an infrarenal abdominal aortic stenosis present just beneath the level of the takeoff of the NANCY where luminal narrowing is 9 x 6 mm. At the level of the aortic bifurcation, the luminal diameter is 1.1 x 1.0 cm. RIGHT LOWER EXTREMITY: - Common Iliac Artery: Moderate disease without tight stenosis. - Internal Iliac Artery: Marked disease. - External Iliac Artery: No significant stenosis. - Common Femoral Artery: Moderate disease. - Profunda Femoral Artery: Moderate disease. - Superficial Femoral Artery: Occluded. - Popliteal Artery: Reconstituted [id number] with severe [id number] disease. [id number] popliteal is patent. -Tibioperoneal Trunk: Moderate disease. - Posterior Tibial Artery: Patent. - Peroneal Artery: Patent. - Anterior Tibial Artery: Patent. LEFT LOWER EXTREMITY: - Common Iliac Artery: Mild disease without significant stenosis. - Internal Iliac Artery: Severely diseased. - External Iliac Artery: Mild proximal disease. - Common Femoral Artery: Mild distal luminal narrowing measuring 3 mm. - Profunda Femoral Artery: Patent. - Superficial Femoral Artery: Occluded. - Femoral-Popliteal Graft: Widely patent. - Popliteal Artery: Mild disease [id number] with one moderate stenosis just above the trifurcation. - Posterior Tibial Artery: Occludes about 9 cm above the ankle with reconstitution distally. - Peroneal Artery: Patent. - Anterior Tibial Artery: Patent. CELIOMESENTERIC ARTERIES: Celiac and SMA are patent. RENAL ARTERIES: Two renal arteries present on the right and a single on the left, all patent. NONVASCULAR: Lung Bases: The visualized lung bases are unremarkable. Liver, Gallbladder and Biliary Tree: The liver is normal in size, shape, and attenuation. No focal hepatic lesion or biliary ductal dilatation is present. The gallbladder is unremarkable with no evidence of radiopaque gallstones, gallbladder wall thickening, or obvious pericholecystic inflammatory changes. Pancreas: Unremarkable. Spleen: Unremarkable. Adrenal Glands: Unremarkable. Kidneys and Ureters: The kidneys are normal in size, shape, and attenuation. No hydronephrosis, hydroureter, or calculi seen. No perinephric stranding. Bladder: A large amount of air is present in the bladder. Does this patient self-catheterize? Gastrointestinal Tract: A hiatal hernia is present. The small and large bowel are unremarkable aside from a few scattered colonic diverticula without diverticulitis. The appendix is unremarkable. Abdominal Wall: No significant hernia is appreciated. Lymph Nodes: No retroperitoneal lymphadenopathy. Pelvic Viscera: An anteverted uterus is present. An abnormal adnexal mass is not seen. No free fluid is present. Osseous Structures: Unremarkable. CT/CT angio abd aorta runoff IMPRESSION: 1. Distal aortic stenosis at the level of the NANCY where the lumen narrows to 6 x 9 mm. 2. On the right, there is moderate disease in the iliofemoral inflow with an occluded SFA and reconstitution of a diseased [id number] popliteal. [id number] popliteal patent with three-vessel runoff with some disease in the tibioperoneal trunk. 3. On the left, there is mild external iliac disease and distal common femoral stenosis. The [place] SFA is occluded with widely patent femoropopliteal graft. Single popliteal stenosis just above the trifurcation with good two-vessel runoff via peroneal and anterior tibial artery. Posterior tibial artery occludes about 9 cm above the ankle. 4. Nonvascular findings demonstrate small hiatal hernia, colonic diverticula without diverticulitis and a large amount of air in the bladder as described above.
[2021-04-23] MEDS: iohexoL 350 MG/ML 100 ML INFUS..BTL IV (12:08)
== END 2021-04-23 10:51 | disposition home or self-care (01) ==
LOC: HO.CT 10:50
PROVIDERS: Visit Provider Surgery Vascular Surgery
DX: I73.9 Peripheral vascular disease, unspecified (principal); I25.10 Atherosclerotic heart disease of native coronary artery without angina pectoris
CPT/HCPCS: 75635; Q9967

== ENCOUNTER 2021-05-03 22:45 | Emergency (ER) | payer MEDICAID, SELFPAY ==
[2021-05-03 23:09] VITALS: BP 218/103; PULSE 95; RESP 18; TEMP 36.7; O2SAT 98; BMI 36.6
[2021-05-03 23:51] LABS: Basophils Percent Auto 0.6 % (0-2); Eosinophils Absolute Auto 0.3 X10*3/uL (0.0-0.4); Eosinophils Percent Auto 5.2 % (0-4); Hematocrit 36.4 % (37.0-47.0); Hemoglobin 11.7 g/dl (12.0-16.0); Imm Gran Abs Auto 0.02 X10*3/uL (0.00-0.03); Imm Gran Pct Auto 0.3 % (0.0-0.4); Lymphocytes Absolute Auto 2.4 X10*3/uL (1.2-4.9); Lymphocytes Percent Auto 36.3 % (20-40); MANUAL DIFF FLAG NO; Mean Corpuscular HGB Conc 32.1 g/dl (31.0-35.0); Mean Corpuscular Hemoglobin 28.5 pg (27.0-33.0); Mean Corpuscular Volume 88.6 fL (80.0-98.0); Mean Platelet Volume 9.2 fL (9.4-12.3); Monocytes Absolute Auto 0.5 X10*3/uL (0.1-1.2); Monocytes Percent Auto 7.5 % (2-11); Neutrophils Absolute Auto 3.3 x10*3/uL (2.0-8.3); Neutrophils Percent Auto 50.1 % (45-73); Platelet Count 288 X10*3/uL (160-400); Red Blood Count 4.11 X10*6/uL (4.20-5.50); Red Cell Distribution Width 13.6 % (11.0-16.0); White Blood Count 6.6 X10*3/uL (4.8-10.8)
[2021-05-04 00:03] LABS: Lactic Acid 1.5 mmol/L (0.5-2.0)
[2021-05-04 00:14] LABS: Alanine Aminotransferase 11 U/L (0-31); Albumin Level 3.9 g/dL (3.5-5.0); Alkaline Phosphatase 88 U/L (39-117); Anion Gap 13 (12-20); Aspartate Amino Transferase 12 U/L (5-31); Bilirubin Direct 0.2 mg/dL (0.0-0.5); Bilirubin Total 0.4 mg/dL (0.0-1.0); Blood Urea Nitrogen 9 mg/dL (9-16); Calcium 9.3 mg/dL (8.4-10.2); Carbon Dioxide 25 mmol/L (22-29); Chloride 104 mmol/L (96-108); Creatinine Clr Calc Pharmacy 79.3; Estimated Glomerular Filt Rate > 60; Glucose Random 219 mg/dL (60-115); Potassium 3.9 mmol/L (3.3-5.1); Sodium 138 mmol/L (135-145); Total Protein 6.5 g/dL (6.5-8.0)
== END 2021-05-04 05:40 | disposition left against medical advice (07) ==
PROVIDERS: Emergency Provider Emergency Medicine; PCP Family Medicine
DX: L03.119 Cellulitis of unspecified part of limb (principal); M79.669 Pain in unspecified lower leg; I10 Essential (primary) hypertension; E11.9 Type 2 diabetes mellitus without complications; E78.5 Hyperlipidemia, unspecified
CPT/HCPCS: 36415; 80048; 80076; 83605; 85025; 87040; 99282; 99283

== ENCOUNTER 2021-05-06 00:32 | Emergency (ER) | payer MEDICAID, SELFPAY ==
[2021-05-06 00:36] VITALS: BP 182/84; PULSE 88; O2SAT 98
[2021-05-06 00:38] VITALS: BP 175/65; PULSE 86; RESP 18; TEMP 37.1; O2SAT 97; BMI 26.6
--- NOTE | 2021-05-06 00:51 | ED.LOWEXIN ---
HPI - Extremity Injury (Lower) General Chief Complaint: Extremity Injury, Lower Stated Complaint: LEFT LEG PAIN Time Seen by Provider: 05/06/21 00:41 Source: patient Mode of arrival: ambulatory Limitations: no limitations History of Present Illness HPI Narrative: Patient comes emergency room complaining of right lower extremity pain. Patient states that she has had sores for about 3 or 4 weeks. Patient follow-ups with Dr. Aragon. Patient was seen on March 30, [address] Aragon, patient already had ulcerations in the right calf. Patient recently had a runoff CT scan. Patient denies fever chills. Patient states that the reason she came today it is because it hurts more than usual and the ulcers in the back of her leg/calf have been draining pus-like material Related Data Home Medications Medication Instructions Recorded Confirmed metformin 1,000 mg tablet 1,000 mg PO BID 12/22/19 05/06/21 aspirin 81 mg tablet,delayed 81 mg PO DAILY 01/02/20 05/06/21 release (Adult Low Dose Aspirin) atorvastatin 80 mg tablet (Lipitor) 80 mg PO DAILY 01/02/20 05/06/21 carvedilol 25 mg tablet (Coreg) 25 mg PO BID 01/02/20 01/16/21 escitalopram oxalate 20 mg tablet 20 mg PO DAILY 01/02/20 05/06/21 (Lexapro) gabapentin 800 mg tablet 800 mg PO TID 01/02/20 05/06/21 insulin degludec 100 unit/mL (3 10 unit SUBCUT DAILY 01/02/20 01/16/21 mL) subcutaneous pen (Tresiba FlexTouch U-100 insulin) lisinopril 40 mg tablet 40 mg PO DAILY 01/02/20 05/06/21 mirtazapine 45 mg tablet 45 mg PO BEDTIME 01/02/20 05/06/21 multivitamin 1 tab PO DAILY 01/02/20 05/06/21 acetaminophen 650 mg 650 mg PO Q8H PRN 01/16/21 05/06/21 tablet,extended release (Arthritis Pain Relief (acetaminophen) ER) amlodipine 10 mg tablet 10 mg PO DAILY 01/16/21 05/06/21 docusate sodium 100 mg capsule 100 mg PO BID 01/16/21 05/06/21 fluticasone propionate 110 2 puff INHALATION BID 01/16/21 01/16/21 mcg/actuation HFA aerosol inhaler (Flovent HFA) fluticasone propionate 50 2 spray INTRANASAL DAILY 01/16/21 01/16/21 mcg/actuation nasal spray,suspension hydralazine 50 mg tablet 50 mg PO TID 01/16/21 05/06/21 lidocaine 5 % topical patch 1 patch TOPICAL DAILY 01/16/21 01/16/21 (Lidoderm) oxycodone 5 mg tablet 5 mg PO Q6H PRN 01/16/21 01/16/21 pantoprazole 40 mg tablet,delayed 40 mg PO BID 01/16/21 05/06/21 release (Protonix) blood sugar diagnostic (FreeStyle #10 ea 03/30/21 Lite Strips) clotrimazole 1 % topical cream appl TOPICAL 03/30/21 Previous Rx's Medication Instructions Recorded ferrous sulfate 325 mg (65 mg 325 mg PO BID #60 tab 05/24/20 iron) tablet dulaglutide 0.75 mg/0.5 mL 0.75 mg (0.5 mL) SUBCUT QWEEK 30 06/25/20 subcutaneous pen injector Days #2.5 ml (Trulicity) hydrochlorothiazide 25 mg tablet 25 mg PO DAILY #30 tab 08/13/20 clopidogrel 75 mg tablet (Plavix) 75 mg PO DAILY #30 tab 12/02/20 pioglitazone 15 mg tablet 15 mg PO DAILY 30 Days #30 tab 12/02/20 albuterol sulfate 2.5 mg (3 mL) INHALATION Q4H PRN 01/19/21 #100 ml nicotine (polacrilex) 2 mg gum 2 mg BUCCAL Q2H PRN #20 ea 01/19/21 prednisone 20 mg tablet 20 mg PO DAILY #3 tab 01/19/21 cephalexin 250 mg capsule 250 mg PO BID #14 cap 05/06/21 doxycycline hyclate 100 mg capsule 100 mg PO BID #14 cap 05/06/21 tramadol 50 mg tablet 50 mg PO BID PRN #7 tab 05/06/21 Allergies Allergy/AdvReac Type Severity Reaction Status Date / Time latex [LATEX] Allergy Unknown RASH Verified 03/30/21 13:01 naproxen [From NAPROSYN] Allergy Unknown TACHYCARDIA Verified 03/30/21 13:01 Review of Systems Review of Systems: Constitutional : No Weight loss, No Fever, No Chills, No Night Sweats, No Fatigue, No Malaise ENT/Mouth : No Hearing loss, No Ear Pain, No Nasal Congestion, No Sinus Pain, No Hoarseness, No sore throat, No Rhinorrhea, No Swallowing Difficulty Eyes: No Eye Pain, No Swelling, No Redness, No Foreign Body, No Discharge, No Vision Changes Cardiovascular : No Chest Pain, No SOB, No Dyspnea on Exertion, No Orthopnea, No Edema, No Palpitations Respiratory : No Cough, No Sputum, No Wheezing, No Smoke Exposure, No Dyspnea Gastrointestinal : No Nausea, No Vomiting, No Diarrhea, No Constipation, No abdominal Pain, No Hematochezia, No Melena Genitourinary : no irregular bleeding, No Dysuria, No Urinary Frequency, No Hematuria, No Urinary Incontinence, No Urgency, No Flank Pain, No Urinary Flow Changes, No Hesitancy Musculoskeletal : Complaining of right lower extremity pain/open sores 4 weeks, No joint pain, No Myalgias, No Joint Swelling Skin : No Skin Lesions, No rash Neuro : No Weakness, No Numbness, No Paresthesias, No Loss of Consciousness, No Dizziness, No Headache Psych : No Anxiety/Panic, No Depression, No SI/HI/AH/VH, No Social Issues, Heme/Lymph: No Bruising, No Bleeding,No Lymphadenopathy Endocrine : No Polyuria, No Polydipsia, No Temperature Intolerance [facility] Past Medical History Medical History Arthritis Asthma CAD (coronary artery disease) Cyst (solitary) of breast Diabetes H. pylori infection HLD (hyperlipidemia) HTN (hypertension) HTN (hypertension) Kidney calculi T2DM (type 2 diabetes mellitus) Vitamin D deficiency Surgical History History of breast surgery History of cardiac cath History of coronary artery bypass graft History of esophagogastroduodenoscopy (EGD) Hx of colonoscopy Family History Family History Mother Diabetes Liver cancer Social History Social History Household Members: Family Housing: Apartment Do you presently have visiting nurse or other home services: No Alcohol intake: never Patient Tobacco Use Status: Current everyday Tobacco user Cigarettes Per Day: 2 Years Smoked: 40 +/- Second Hand Smoke Exposure: No Advance Directives: No Advance Directives Information Provided: Yes service: No Current occupational status: unemployed and disabled Physical Exam Vital Signs: Vital Signs: Last Vital Signs Temp 98.7 F 05/06/21 00:38 Pulse 86 05/06/21 00:38 Resp 18 05/06/21 00:38 BP 175/65 H 05/06/21 00:38 Pulse Ox 97 05/06/21 00:38 BMI result Body Mass Index 26.6 Const: Other: Appearance: Alert. Oriented X3. No acute distress. Eyes: Pupils equal, round and reactive to light. ENT: Pharynx normal. Neck: Normal inspection. Neck supple. No lymph nodes noted. No crepitus CVS: Normal heart rate and rhythm. Pulses normal. Normal S1 and S2 Respiratory: No respiratory distress. Breath sounds normal. No Wheezing. No rales Abdomen: Soft and nontender. No rigidity. No distention. Skin: Skin warm and dry. Normal skin color. Normal skin turgor. Extremities: No lower extremity edema. Patient has ulcerations to the calf of the right lower extremity. Patient has decreased sensation in the foot (chronic), no swelling, no pain out of proportion on palpation Neuro: Oriented X 3. No motor deficit. No sensory deficit. Moving all extremities. No slurred speech. CN 2 through 12 grossly intact Psych: calm, cooperative, normal affect Course Course Course Narrative: Patient has been having pain for almost a month. Patient has a follow-up appointment coming up with Dr. Aragon on the , 5 days from now. Patient's labs pending. I discussed the labs with the patient, white blood cell count within normal limits. At this time, it does not seem that patient has any acute process. Patient will be provided with antibiotics, and needs close follow-up with Dr. Aragon. Also, patient will be given a referral for the wound clinic MDM - Extremity Injury (Lower) Lab Data Result diagrams: 05/06/21 01:13 05/06/21 01:13 Labs: Lab Results 05/06/21 05/06/21 05/06/21 Range/Units 01:13 01:13 01:13 WBC 7.8 (4.8-10.8) X10*3/uL RBC 4.22 (4.20-5.50) X10*6/uL Hgb 12.3 (12.0-16.0) g/dl Hct 37.9 (37.0-47.0) % MCV 89.8 (80.0-98.0) fL MCH 29.1 (27.0-33.0) pg MCHC 32.5 (31.0-35.0) g/dl RDW 13.7 (11.0-16.0) % Plt Count 303 (160-400) X10*3/uL MPV 9.2 L (9.4-12.3) fL Immature Gran % (Auto) 0.3 (0.0-0.4) % Neut % (Auto) 58.8 (45-73) % Lymph % (Auto) 29.6 (20-40) % [place] % (Auto) 6.0 (2-11) % Eos % (Auto) 4.7 H (0-4) % Baso % (Auto) 0.6 (0-2) % Lymph # (Auto) 2.3 (1.2-4.9) X10*3/uL [place] # (Auto) 0.5 (0.1-1.2) X10*3/uL Eos # (Auto) 0.4 (0.0-0.4) X10*3/uL Baso # (Auto) 0.1 (0.0-0.2) X10*3/uL Abs Immat Gran (auto) 0.02 (0.00-0.03) X10*3/uL Absolute Neuts (auto) 4.6 (2.0-8.3) x10*3/uL Absolute Nucleated RBC 0.000 (0.0-0.012) X10*3/uL Nucleated RBC % (auto) 0.0 (0.0-0.2) /100WBC PT 10.7 (9.9-13.0) SEC INR 0.9 (0.9-1.1) Sodium 140 (135-145) mmol/L Potassium 4.0 (3.3-5.1) mmol/L Chloride 104 (96-108) mmol/L Carbon Dioxide 26 (22-29) mmol/L Anion Gap 14 (12-20) BUN 12 (9-16) mg/dL Creatinine 0.87 (0.5-1.4) mg/dL Estim Creat Clear Calc 67.0 Estimated GFR > 60 Random Glucose 229 H (60-115) mg/dL Lactic Acid (0.5-2.0) mmol/L Calcium 9.4 (8.4-10.2) mg/dL Total Bilirubin 0.5 (0.0-1.0) mg/dL Direct Bilirubin < 0.2 (0.0-0.5) mg/dL AST 13 (5-31) U/L ALT 12 (0-31) U/L Alkaline Phosphatase 88 (39-117) U/L Total Protein 6.8 (6.5-8.0) g/dL Albumin 4.0 (3.5-5.0) g/dL Urine Opiates Screen (Not Detect) Urine Fentanyl Screen (Not Detect) Ur Barbiturates Screen (Not Detect) Ur Phencyclidine Scrn (Not Detect) Ur Amphetamines Screen (Not Detect) U Benzodiazepines Scrn (Not Detect) Urine Cocaine Screen (Not Detect) U Marijuana (THC) Screen (Not Detect) 05/06/21 05/06/21 Range/Units 01:14 01:29 WBC (4.8-10.8) X10*3/uL RBC (4.20-5.50) X10*6/uL Hgb (12.0-16.0) g/dl Hct (37.0-47.0) % MCV (80.0-98.0) fL MCH (27.0-33.0) pg MCHC (31.0-35.0) g/dl RDW (11.0-16.0) % Plt Count (160-400) X10*3/uL MPV (9.4-12.3) fL Immature Gran % (Auto) (0.0-0.4) % Neut % (Auto) (45-73) % Lymph % (Auto) (20-40) % [place] % (Auto) (2-11) % Eos % (Auto) (0-4) % Baso % (Auto) (0-2) % Lymph # (Auto) (1.2-4.9) X10*3/uL [place] # (Auto) (0.1-1.2) X10*3/uL Eos # (Auto) (0.0-0.4) X10*3/uL Baso # (Auto) (0.0-0.2) X10*3/uL Abs Immat Gran (auto) (0.00-0.03) X10*3/uL Absolute Neuts (auto) (2.0-8.3) x10*3/uL Absolute Nucleated RBC (0.0-0.012) X10*3/uL Nucleated RBC % (auto) (0.0-0.2) /100WBC PT (9.9-13.0) SEC INR (0.9-1.1) Sodium (135-145) mmol/L Potassium (3.3-5.1) mmol/L Chloride (96-108) mmol/L Carbon Dioxide (22-29) mmol/L Anion Gap (12-20) BUN (9-16) mg/dL Creatinine (0.5-1.4) mg/dL Estim Creat Clear Calc Estimated GFR Random Glucose (60-115) mg/dL Lactic Acid 2.0 (0.5-2.0) mmol/L Calcium (8.4-10.2) mg/dL Total Bilirubin (0.0-1.0) mg/dL Direct Bilirubin (0.0-0.5) mg/dL AST (5-31) U/L ALT (0-31) U/L Alkaline Phosphatase (39-117) U/L Total Protein (6.5-8.0) g/dL Albumin (3.5-5.0) g/dL Urine Opiates Screen Not Detected (Not Detect) Urine Fentanyl Screen Not Detected (Not Detect) Ur Barbiturates Screen Not Detected (Not Detect) Ur Phencyclidine Scrn Not Detected (Not Detect) Ur Amphetamines Screen Not Detected (Not Detect) U Benzodiazepines Scrn Not Detected (Not Detect) Urine Cocaine Screen Not Detected (Not Detect) U Marijuana (THC) Screen Not Detected (Not Detect) Imaging Data Aorta with runoff CTA: Radiologist's impression: From 04/23/2021 IMPRESSION: 1. Distal aortic stenosis at the level of the NANCY where the lumen narrows to 6 x 9 mm. ? 2. On the right, there is moderate disease in the iliofemoral inflow with an occluded SFA and reconstitution of a diseased [id number] popliteal. [id number] popliteal patent with three-vessel runoff with some disease in the tibioperoneal trunk. ? 3. On the left, there is mild external iliac disease and distal common femoral stenosis. The [place] SFA is occluded with widely patent femoropopliteal graft. Single popliteal stenosis just above the trifurcation with good two-vessel runoff via peroneal and anterior tibial artery. Posterior tibial artery occludes about 9 cm above the ankle. ? 4. Nonvascular findings demonstrate small hiatal hernia, colonic diverticula without diverticulitis and a large amount of air in the bladder as described above. Discharge Plan Discharge Clinical Impression: Ulcer of calf Patient Disposition: Home, Self-Care Instructions: Diabetes and Your Skin (ED), Venous Insufficiency (DC), Chronic Wounds (ED) Additional Instructions: Please follow-up with your primary care physician tomorrow. If you have any worsening or new symptoms, please return to the emergency room or call 911 Prescriptions: New cephalexin 250 mg capsule 250 mg PO BID Qty: 14 0RF doxycycline hyclate 100 mg capsule 100 mg PO BID Qty: 14 0RF tramadol 50 mg tablet 50 mg PO BID PRN (Reason: pain) Qty: 7 0RF No Action hydrochlorothiazide 25 mg tablet 25 mg PO DAILY Qty: 30 0RF Rx Instructions: Must call to schedule a cardiology appointment for more refills - overdue pioglitazone 15 mg tablet 15 mg PO DAILY 30 Days Qty: 30 11RF metformin 1,000 mg Tablet 1,000 mg PO BID 0RF ferrous sulfate 325 mg (65 mg iron) tablet 325 mg PO BID Qty: 60 0RF clopidogrel [Plavix] 75 mg tablet 75 mg PO DAILY Qty: 30 5RF oxycodone 5 mg Tablet 5 mg PO Q6H PRN (Reason: Pain (Scale Score 7-10)) 0RF amlodipine 10 mg Tablet 10 mg PO DAILY 0RF docusate sodium 100 mg Capsule 100 mg PO BID 0RF hydralazine 50 mg Tablet 50 mg PO TID 0RF pantoprazole [Protonix] 40 mg tablet,delayed release (DR/EC) 40 mg PO BID 0RF lidocaine [Lidoderm] 5 % Adhesive Patch,Medicated 1 patch TOPICAL DAILY 0RF fluticasone propionate 50 mcg/actuation [place],Suspension 2 spray INTRANASAL DAILY 0RF acetaminophen [Arthritis Pain Relief (acetam)] 650 mg Tablet Extended Release 650 mg PO Q8H PRN (Reason: Pain (Scale Score 1-3)) 0RF Flovent HFA 110 mcg/actuation Hfa Aerosol Inhaler 2 puff INHALATION BID 0RF prednisone 20 mg tablet 20 mg PO DAILY Qty: 3 0RF nicotine (polacrilex) 2 mg Gum 2 mg buccal Q2H PRN (Reason: Nicotine Cravings) Qty: 20 0RF albuterol sulfate 2.5 mg /3 mL (0.083 %) Solution For Nebulization 2.5 mg inhalation Q4H PRN (Reason: shortness of breath/wheeze) Qty: 100 0RF Trulicity 0.75 mg/0.5 mL pen injector 0.75 mg subcut QWEEK 30 Days Qty: 2.5 11RF carvedilol [Coreg] 25 mg tablet 25 mg PO BID 0RF Rx Instructions: must administer with a meal/food multivitamin Tablet 1 tab PO DAILY 0RF lisinopril 40 mg tablet 40 mg PO DAILY 0RF gabapentin 800 mg tablet 800 mg PO TID 0RF aspirin [Adult Low Dose Aspirin] 81 mg tablet,delayed release (DR/EC) 81 mg PO DAILY 0RF escitalopram oxalate [Lexapro] 20 mg tablet 20 mg PO DAILY 0RF mirtazapine 45 mg tablet 45 mg PO BEDTIME 0RF atorvastatin [Lipitor] 80 mg tablet 80 mg PO DAILY 0RF Tresiba FlexTouch U-100 100 unit/mL (3 mL) insulin pen 10 unit subcut DAILY 0RF (DME) FreeStyle Lite Strips Strip See Rx Instructions ea Not Applicable QID Qty: 10 0RF Rx Instructions: As directed clotrimazole 1 % cream topical 0RF
[2021-05-06 01:18] LABS: MANUAL DIFF FLAG NO
[2021-05-06] MEDS: Acetaminophen 325 MG TABLET 650 MG PO (01:20)
[2021-05-06 01:23] LABS: Basophils Absolute Auto 0.1 X10*3/uL (0.0-0.2); Basophils Percent Auto 0.6 % (0-2); Eosinophils Absolute Auto 0.4 X10*3/uL (0.0-0.4); Eosinophils Percent Auto 4.7 % (0-4); Hematocrit 37.9 % (37.0-47.0); Hemoglobin 12.3 g/dl (12.0-16.0); Imm Gran Abs Auto 0.02 X10*3/uL (0.00-0.03); Imm Gran Pct Auto 0.3 % (0.0-0.4); Lymphocytes Absolute Auto 2.3 X10*3/uL (1.2-4.9); Lymphocytes Percent Auto 29.6 % (20-40); Mean Corpuscular HGB Conc 32.5 g/dl (31.0-35.0); Mean Corpuscular Hemoglobin 29.1 pg (27.0-33.0); Mean Corpuscular Volume 89.8 fL (80.0-98.0); Mean Platelet Volume 9.2 fL (9.4-12.3); Monocytes Absolute Auto 0.5 X10*3/uL (0.1-1.2); Neutrophils Absolute Auto 4.6 x10*3/uL (2.0-8.3); Neutrophils Percent Auto 58.8 % (45-73); Platelet Count 303 X10*3/uL (160-400); Red Blood Count 4.22 X10*6/uL (4.20-5.50); Red Cell Distribution Width 13.7 % (11.0-16.0); White Blood Count 7.8 X10*3/uL (4.8-10.8)
[2021-05-06 01:28] LABS: INTERNATIONAL NORM RATIO 0.9 (0.9-1.1); Prothrombin Time 10.7 SEC (9.9-13.0)
[2021-05-06 01:42] LABS: Alanine Aminotransferase 12 U/L (0-31); Alkaline Phosphatase 88 U/L (39-117); Anion Gap 14 (12-20); Aspartate Amino Transferase 13 U/L (5-31); Bilirubin Direct < 0.2 mg/dL (0.0-0.5); Bilirubin Total 0.5 mg/dL (0.0-1.0); Blood Urea Nitrogen 12 mg/dL (9-16); Calcium 9.4 mg/dL (8.4-10.2); Carbon Dioxide 26 mmol/L (22-29); Chloride 104 mmol/L (96-108); Estimated Glomerular Filt Rate > 60; Glucose Random 229 mg/dL (60-115); Sodium 140 mmol/L (135-145); Total Protein 6.8 g/dL (6.5-8.0)
[2021-05-06 01:47] LABS: Amphetamine Screen Urine Not Detected (Not Detect); Barbiturates, Urine Not Detected (Not Detect); Benzodiazepines Screen Urine Not Detected (Not Detect); Cannabinoid Screen Urine Not Detected (Not Detect); Cocaine Screen Urine Not Detected (Not Detect); Fentanyl, urine Not Detected (Not Detect); Opiate Screen Urine Not Detected (Not Detect); Phencyclidine Screen Urine Not Detected (Not Detect)
[2021-05-06] MEDS: traMADoL HCL 50 MG TABLET PO (01:59)
--- NOTE | 2021-05-06 02:18 | PC.NURSE ---
pt has 3 ulcerations to here RLE, (3) 2cm diameter ulcers, 2 of which are superficial, and one is a stage 2 ulcer. no drainage. site cleaned with NS, covered with non-adherant pad and wraped with blake. pt transported to waiting room via wheelchair
== END 2021-05-06 02:21 | disposition home or self-care (01) ==
PROVIDERS: Emergency Provider Emergency Medicine
DX: L97.219 Non-pressure chronic ulcer of right calf with unspecified severity (principal); M79.604 Pain in right leg; E11.9 Type 2 diabetes mellitus without complications; I10 Essential (primary) hypertension; E78.5 Hyperlipidemia, unspecified; Z79.82 Long term (current) use of aspirin; Z79.4 Long term (current) use of insulin; F17.200 Nicotine dependence, unspecified, uncomplicated
CPT/HCPCS: 36415; 80048; 80076; 80307; 83605; 85025; 85610; 87040; 99283

== ENCOUNTER 2021-05-07 16:59 | Inpatient (IN) | payer MEDICAID, SELFPAY ==
--- NOTE | ~2021-05-07 | XR_ITS ---
EXAMINATION: XR TIBIA AND FIBULA, RIGHT CLINICAL INFORMATION: Diabetic wound. COMPARISON: No similar priors. TECHNIQUE: AP and lateral views of the right tibia and fibula were obtained. FINDINGS: Diffuse soft tissue swelling without unexpected radiopaque foreign bodies. Possible wound along the medial surface of the mid to distal calf, correlate with physical examination. No cortical irregularity or erosive changes in the bones to suspect osteomyelitis. No acute fractures or malalignment. Scattered vascular calcifications. XR/XR tibia fibula RT 2V IMPRESSION: No definite radiographic evidence for osteomyelitis. However, if clinical suspicious for osteomyelitis is elevated, correlation with an MR with and without intravenous contrast of the area of concern could be obtained. No acute fractures or malalignment.
--- NOTE | ~2021-05-07 | MR_ITS ---
EXAMINATION: MR LOWER LEG WITHOUT AND WITH CONTRAST, RIGHT CLINICAL INFORMATION: Leg infection. COMPARISON: X-ray of the right lower leg, tibia and fibula. CT angiogram abdomen and pelvis and lower extremities 04/25/2021. TECHNIQUE: MRI of the right lower leg was performed before and after contrast. Contrast dose 7 mL of Gadavist given intravenously. FINDINGS: Subcutaneous Soft Tissues: Normal. Muscles and Tendons: Normal. Neurovascular Structures: Normal. Bone: Normal. No abnormal enhancement. MR/MR lower leg RT wo/w con IMPRESSION: Normal MRI of the right lower extremity. I do not see imaging findings of infection.
[2021-05-07 17:17] VITALS: BP 120/72; PULSE 75; RESP 18; TEMP 37.1; O2SAT 97
[2021-05-07 17:29] LABS: MANUAL DIFF FLAG NO
[2021-05-07 17:32] LABS: Basophils Percent Auto 0.5 % (0-2); Eosinophils Absolute Auto 0.3 X10*3/uL (0.0-0.4); Eosinophils Percent Auto 5.2 % (0-4); Hematocrit 33.8 % (37.0-47.0); Imm Gran Abs Auto 0.02 X10*3/uL (0.00-0.03); Imm Gran Pct Auto 0.3 % (0.0-0.4); Lymphocytes Absolute Auto 2.2 X10*3/uL (1.2-4.9); Lymphocytes Percent Auto 33.8 % (20-40); Mean Corpuscular HGB Conc 32.5 g/dl (31.0-35.0); Mean Corpuscular Volume 89.2 fL (80.0-98.0); Mean Platelet Volume 9.1 fL (9.4-12.3); Monocytes Absolute Auto 0.4 X10*3/uL (0.1-1.2); Monocytes Percent Auto 5.8 % (2-11); Neutrophils Absolute Auto 3.6 x10*3/uL (2.0-8.3); Neutrophils Percent Auto 54.4 % (45-73); Platelet Count 273 X10*3/uL (160-400); Red Blood Count 3.79 X10*6/uL (4.20-5.50); Red Cell Distribution Width 13.6 % (11.0-16.0); White Blood Count 6.6 X10*3/uL (4.8-10.8)
[2021-05-07 17:50] LABS: Anion Gap 14 (12-20); Blood Urea Nitrogen 11 mg/dL (9-16); Calcium 9.2 mg/dL (8.4-10.2); Carbon Dioxide 25 mmol/L (22-29); Chloride 104 mmol/L (96-108); Creatinine Clr Calc Pharmacy 70.6; Estimated Glomerular Filt Rate > 60; Glucose Random 205 mg/dL (60-115); Sodium 139 mmol/L (135-145)
--- NOTE | 2021-05-07 18:10 | ED.WOUNDLAC ---
HPI - Wound/Laceration General Chief Complaint: Wound/Laceration Stated Complaint: ref by [facility], infection on leg Source: patient Mode of arrival: ambulatory Limitations: language barrier History of Present Illness HPI narrative: 60-year-old female presents from physician's office for evaluation for worsening diabetic ulcer to the right lower extremity. Onset (ago): unknown Extremity Location: right: lower leg Patient tetanus UTD: Yes Context: other (Chronic diabetic wound) Related Data Home Medications Medication Instructions Recorded Confirmed metformin 1,000 mg tablet 1,000 mg PO BID 12/22/19 05/07/21 aspirin 81 mg tablet,delayed 81 mg PO DAILY 01/02/20 05/07/21 release (Adult Low Dose Aspirin) atorvastatin 80 mg tablet (Lipitor) 80 mg PO BEDTIME 01/02/20 05/07/21 carvedilol 25 mg tablet (Coreg) 25 mg PO BID 01/02/20 05/07/21 escitalopram oxalate 20 mg tablet 20 mg PO DAILY 01/02/20 05/07/21 (Lexapro) gabapentin 800 mg tablet 800 mg PO TID 01/02/20 05/07/21 insulin degludec 100 unit/mL (3 10 unit SUBCUT DAILY 01/02/20 05/07/21 mL) subcutaneous pen (Tresiba FlexTouch U-100 insulin) lisinopril 40 mg tablet 40 mg PO DAILY 01/02/20 05/07/21 mirtazapine 45 mg tablet 45 mg PO BEDTIME 01/02/20 05/07/21 multivitamin 1 tab PO DAILY 01/02/20 05/07/21 acetaminophen 650 mg 650 mg PO Q8H PRN 01/16/21 05/07/21 tablet,extended release (Arthritis Pain Relief (acetaminophen) ER) amlodipine 10 mg tablet 10 mg PO BEDTIME 01/16/21 05/07/21 docusate sodium 100 mg capsule 100 mg PO BID 01/16/21 05/07/21 fluticasone propionate 110 2 puff INHALATION BID 01/16/21 05/07/21 mcg/actuation HFA aerosol inhaler (Flovent HFA) fluticasone propionate 50 2 spray INTRANASAL DAILY 01/16/21 05/07/21 mcg/actuation nasal spray,suspension hydralazine 50 mg tablet 50 mg PO TID 01/16/21 05/07/21 lidocaine 5 % topical patch 1 patch TOPICAL DAILY 01/16/21 05/07/21 (Lidoderm) pantoprazole 40 mg tablet,delayed 40 mg PO BID@0630,1630 01/16/21 05/07/21 release (Protonix) blood sugar diagnostic (FreeStyle #10 ea 03/30/21 Lite Strips) clotrimazole 1 % topical cream 1 appl TOPICAL BID 03/30/21 05/07/21 amitriptyline 50 mg tablet 1 tab PO BEDTIME 05/07/21 05/07/21 oxycodone-acetaminophen 7.5 mg-325 1 tab PO Q6H PRN 05/07/21 05/07/21 mg tablet Previous Rx's Medication Instructions Recorded ferrous sulfate 325 mg (65 mg 325 mg PO BID #60 tab 05/24/20 iron) tablet dulaglutide 0.75 mg/0.5 mL 0.75 mg (0.5 mL) SUBCUT QWEEK 30 06/25/20 subcutaneous pen injector Days #2.5 ml (Trulicity) hydrochlorothiazide 25 mg tablet 25 mg PO DAILY #30 tab 08/13/20 clopidogrel 75 mg tablet (Plavix) 75 mg PO DAILY #30 tab 12/02/20 pioglitazone 15 mg tablet 15 mg PO DAILY 30 Days #30 tab 12/02/20 albuterol sulfate 2.5 mg (3 mL) INHALATION Q4H PRN 01/19/21 #100 ml cephalexin 250 mg capsule 250 mg PO BID #14 cap 05/06/21 doxycycline hyclate 100 mg capsule 100 mg PO BID #14 cap 05/06/21 tramadol 50 mg tablet 50 mg PO BID PRN #7 tab 05/06/21 Allergies Allergy/AdvReac Type Severity Reaction Status Date / Time latex [LATEX] Allergy Unknown RASH Verified 05/07/21 17:17 naproxen [From NAPROSYN] Allergy Unknown TACHYCARDIA Verified 05/07/21 17:17 Review of Systems Review of Systems: Constitutional: No Fever, No Chills ENT/Mouth: No Ear Pain, No Hoarseness, No sore throat Eyes: No Eye Pain, No Swelling, No Redness, No Foreign Body Cardiovascular: No Chest Pain, No SOB Respiratory: No Cough, No Dyspnea Gastrointestinal: No Nausea, No Vomiting, No Diarrhea, No abdominal Pain Genitourinary: No Dysuria, No Hematuria Musculoskeletal: positive right leg pain, No Myalgias, No Joint Swelling Skin: Chronic right leg diabetic ulcer, No Skin lacerations, No rash Neuro: No Weakness, No Numbness, No Paresthesias, No Loss of Consciousness, No Dizziness, No Headache Psych: No Anxiety/Panic, No Depression Heme/Lymph: no easy bruising, no Lymphadenopathy Endocrine: No Polyuria, No Polydipsia Yes all other systems are reviewed and are negative [facility] Past Medical History Attestation statement: The following information was validated with the patient. Source: old records reviewed Medical History Arthritis Asthma CAD (coronary artery disease) Cyst (solitary) of breast Diabetes H. pylori infection HLD (hyperlipidemia) HTN (hypertension) HTN (hypertension) Kidney calculi T2DM (type 2 diabetes mellitus) Vitamin D deficiency Surgical History History of breast surgery History of cardiac cath History of coronary artery bypass graft History of esophagogastroduodenoscopy (EGD) Hx of colonoscopy Family History Family History Mother Diabetes Liver cancer Social History Social History Household Members: Family Housing: Apartment Do you presently have visiting nurse or other home services: No Alcohol intake: never Patient Tobacco Use Status: Current everyday Tobacco user Cigarettes Per Day: 2 Years Smoked: 40 +/- Second Hand Smoke Exposure: No Advance Directives: No Advance Directives Information Provided: No service: No Current occupational status: unemployed and disabled Physical Exam Vital Signs: Vital Signs: Last Vital Signs Temp 98.2 F 05/07/21 18:55 Pulse 68 05/07/21 18:55 Resp 18 05/07/21 18:55 BP 160/71 H 05/07/21 18:55 Pulse Ox 97 05/07/21 18:55 BMI result Body Mass Index 0.3 Appearance: Alert. Oriented X3. No acute distress. Eyes: Pupils equal, round and reactive to light. ENT: Pharynx normal. Neck: Normal inspection. Neck supple. CVS: Normal heart rate and rhythm. Pulses normal. Respiratory: No respiratory distress. Breath sounds normal. Abdomen: Soft and nontender. Skin: Skin warm and dry. Normal skin color. Normal skin turgor. Extremities: Tenderness noted to the right lower extremity. Warmth around the ulcer and wound. Moves all extremities against resistance. Neuro: No motor deficit. No sensory deficit. Cranial nerves 2-12 intact. Course Course Course Narrative: 60-year-old female presents from her physician's office for evaluation of a worsening chronic diabetic ulcer to the right lower extremity. High suspicion for osteomyelitis and cellulitis as patient has had this in the past. Will order labs and x-ray. 19:40 x-ray do not show definite evidence of osteomyelitis however clinical suspicion is high, MR recommended. Patient is not septic. Lactic and cultures were ordered. 20:00 discussion with hospitalist regarding plan of care to admit for suspected osteomyelitis. 21:10 ID approval for ertapenem at this time. Consultations Consultation #1: ann-marie Time: 20:00 Consultation #2: Emanuel Time: 21:00 MDM - Wound/Laceration MDM Narrative Medical decision making narrative: Chronic diabetic ulcer, osteomyelitis, sepsis Medical Records Attestation: I reviewed the patient's medical records. Lab Data Attestation: I reviewed the patient's lab results. Result diagrams: 05/07/21 17:25 05/07/21 17:25 Labs: Lab Results 05/07/21 05/07/21 05/07/21 Range/Units 17:25 17:25 17:25 WBC 6.6 (4.8-10.8) X10*3/uL RBC 3.79 L (4.20-5.50) X10*6/uL Hgb 11.0 L (12.0-16.0) g/dl Hct 33.8 L (37.0-47.0) % MCV 89.2 (80.0-98.0) fL MCH 29.0 (27.0-33.0) pg MCHC 32.5 (31.0-35.0) g/dl RDW 13.6 (11.0-16.0) % Plt Count 273 (160-400) X10*3/uL MPV 9.1 L (9.4-12.3) fL Immature Gran % (Auto) 0.3 (0.0-0.4) % Neut % (Auto) 54.4 (45-73) % Lymph % (Auto) 33.8 (20-40) % [place] % (Auto) 5.8 (2-11) % Eos % (Auto) 5.2 H (0-4) % Baso % (Auto) 0.5 (0-2) % Lymph # (Auto) 2.2 (1.2-4.9) X10*3/uL [place] # (Auto) 0.4 (0.1-1.2) X10*3/uL Eos # (Auto) 0.3 (0.0-0.4) X10*3/uL Baso # (Auto) 0.0 (0.0-0.2) X10*3/uL Abs Immat Gran (auto) 0.02 (0.00-0.03) X10*3/uL Absolute Neuts (auto) 3.6 (2.0-8.3) x10*3/uL Absolute Nucleated RBC 0.000 (0.0-0.012) X10*3/uL Nucleated RBC % (auto) 0.0 (0.0-0.2) /100WBC ESR 23 H (0-20) MM/HR PT (9.9-13.0) SEC INR (0.9-1.1) APTT (24.1-38.0) SEC Sodium 139 (135-145) mmol/L Potassium 4.0 (3.3-5.1) mmol/L Chloride 104 (96-108) mmol/L Carbon Dioxide 25 (22-29) mmol/L Anion Gap 14 (12-20) BUN 11 (9-16) mg/dL Creatinine 0.92 (0.5-1.4) mg/dL Estim Creat Clear Calc 70.6 Estimated GFR > 60 Random Glucose 205 H (60-115) mg/dL Lactic Acid (0.5-2.0) mmol/L Calcium 9.2 (8.4-10.2) mg/dL Magnesium (1.6-2.6) mg/dL Total Bilirubin (0.0-1.0) mg/dL Direct Bilirubin (0.0-0.5) mg/dL AST (5-31) U/L ALT (0-31) U/L Alkaline Phosphatase (39-117) U/L Troponin I High Sens (<3.5-17.0) ng/L C-Reactive Protein 0.45 (< or = 0.50) mg/dL Total Protein (6.5-8.0) g/dL Albumin (3.5-5.0) g/dL Lipase (8-78) U/L COVID-19 (RAMA) (Negative) COVID-19 Clin Com 05/07/21 05/07/21 05/07/21 Range/Units 19:07 19:08 19:08 WBC (4.8-10.8) X10*3/uL RBC (4.20-5.50) X10*6/uL Hgb (12.0-16.0) g/dl Hct (37.0-47.0) % MCV (80.0-98.0) fL MCH (27.0-33.0) pg MCHC (31.0-35.0) g/dl RDW (11.0-16.0) % Plt Count (160-400) X10*3/uL MPV (9.4-12.3) fL Immature Gran % (Auto) (0.0-0.4) % Neut % (Auto) (45-73) % Lymph % (Auto) (20-40) % [place] % (Auto) (2-11) % Eos % (Auto) (0-4) % Baso % (Auto) (0-2) % Lymph # (Auto) (1.2-4.9) X10*3/uL [place] # (Auto) (0.1-1.2) X10*3/uL Eos # (Auto) (0.0-0.4) X10*3/uL Baso # (Auto) (0.0-0.2) X10*3/uL Abs Immat Gran (auto) (0.00-0.03) X10*3/uL Absolute Neuts (auto) (2.0-8.3) x10*3/uL Absolute Nucleated RBC (0.0-0.012) X10*3/uL Nucleated RBC % (auto) (0.0-0.2) /100WBC ESR (0-20) MM/HR PT 11.5 (9.9-13.0) SEC INR 1.0 (0.9-1.1) APTT 37.5 (24.1-38.0) SEC Sodium (135-145) mmol/L Potassium (3.3-5.1) mmol/L Chloride (96-108) mmol/L Carbon Dioxide (22-29) mmol/L Anion Gap (12-20) BUN (9-16) mg/dL Creatinine (0.5-1.4) mg/dL Estim Creat Clear Calc Estimated GFR Random Glucose (60-115) mg/dL Lactic Acid 1.6 (0.5-2.0) mmol/L Calcium (8.4-10.2) mg/dL Magnesium 1.5 L (1.6-2.6) mg/dL Total Bilirubin 0.5 (0.0-1.0) mg/dL Direct Bilirubin 0.2 (0.0-0.5) mg/dL AST 11 (5-31) U/L ALT 12 (0-31) U/L Alkaline Phosphatase 92 (39-117) U/L Troponin I High Sens (<3.5-17.0) ng/L C-Reactive Protein (< or = 0.50) mg/dL Total Protein 6.6 (6.5-8.0) g/dL Albumin 4.1 (3.5-5.0) g/dL Lipase 17 (8-78) U/L COVID-19 (RAMA) (Negative) COVID-19 Clin Com 05/07/21 05/07/21 Range/Units 19:08 19:20 WBC (4.8-10.8) X10*3/uL RBC (4.20-5.50) X10*6/uL Hgb (12.0-16.0) g/dl Hct (37.0-47.0) % MCV (80.0-98.0) fL MCH (27.0-33.0) pg MCHC (31.0-35.0) g/dl RDW (11.0-16.0) % Plt Count (160-400) X10*3/uL MPV (9.4-12.3) fL Immature Gran % (Auto) (0.0-0.4) % Neut % (Auto) (45-73) % Lymph % (Auto) (20-40) % [place] % (Auto) (2-11) % Eos % (Auto) (0-4) % Baso % (Auto) (0-2) % Lymph # (Auto) (1.2-4.9) X10*3/uL [place] # (Auto) (0.1-1.2) X10*3/uL Eos # (Auto) (0.0-0.4) X10*3/uL Baso # (Auto) (0.0-0.2) X10*3/uL Abs Immat Gran (auto) (0.00-0.03) X10*3/uL Absolute Neuts (auto) (2.0-8.3) x10*3/uL Absolute Nucleated RBC (0.0-0.012) X10*3/uL Nucleated RBC % (auto) (0.0-0.2) /100WBC ESR (0-20) MM/HR PT (9.9-13.0) SEC INR (0.9-1.1) APTT (24.1-38.0) SEC Sodium (135-145) mmol/L Potassium (3.3-5.1) mmol/L Chloride (96-108) mmol/L Carbon Dioxide (22-29) mmol/L Anion Gap (12-20) BUN (9-16) mg/dL Creatinine (0.5-1.4) mg/dL Estim Creat Clear Calc Estimated GFR Random Glucose (60-115) mg/dL Lactic Acid (0.5-2.0) mmol/L Calcium (8.4-10.2) mg/dL Magnesium (1.6-2.6) mg/dL Total Bilirubin (0.0-1.0) mg/dL Direct Bilirubin (0.0-0.5) mg/dL AST (5-31) U/L ALT (0-31) U/L Alkaline Phosphatase (39-117) U/L Troponin I High Sens 4.8 D (<3.5-17.0) ng/L C-Reactive Protein (< or = 0.50) mg/dL Total Protein (6.5-8.0) g/dL Albumin (3.5-5.0) g/dL Lipase (8-78) U/L COVID-19 (RAMA) Negative (Negative) COVID-19 Clin Com See Note Imaging Data Tib-fib x-ray: Attestation: I personally reviewed and interpreted this imaging study as follows: Radiologist's impression: EXAMINATION: XR TIBIA AND FIBULA, RIGHT CLINICAL INFORMATION: Diabetic wound.? COMPARISON: No similar priors.? TECHNIQUE: AP and lateral views of the right tibia and fibula were obtained. FINDINGS: Diffuse soft tissue swelling without unexpected radiopaque foreign bodies. Possible wound along the medial surface of the mid to distal calf, correlate with physical examination. No cortical irregularity or erosive changes in the bones to suspect osteomyelitis. No acute fractures or malalignment. Scattered vascular calcifications.? XR/XR tibia fibula RT 2V IMPRESSION: No definite radiographic evidence for osteomyelitis. However, if clinical suspicious for osteomyelitis is elevated, correlation with an MR with and without intravenous contrast of the area of concern could be obtained. ? No acute fractures or malalignment. ECG Data Attestation: I personally reviewed and interpreted this ECG as follows: ECG interpretation date: 05/07/21 ECG interpretation time: 18:47 Prior ECG tracings: available for review Interpretation: Vent. rate 63 BPM TX interval 136 ms QRS duration 90 ms QT/QTc 430/440 ms P-R-T axes 28 -1 29 Normal sinus rhythm Minimal voltage criteria for LVH, may be normal variant ( R in aVL ) Nonspecific T wave abnormality Abnormal ECG When compared with ECG of 16-JAN-2021 06:07, No significant change was found Discharge Plan Discharge Prescriptions: No Action hydrochlorothiazide 25 mg tablet 25 mg PO DAILY Qty: 30 0RF Rx Instructions: Must call to schedule a cardiology appointment for more refills - overdue pioglitazone 15 mg tablet 15 mg PO DAILY 30 Days Qty: 30 11RF metformin 1,000 mg Tablet 1,000 mg PO BID 0RF ferrous sulfate 325 mg (65 mg iron) tablet 325 mg PO BID Qty: 60 0RF clopidogrel [Plavix] 75 mg tablet 75 mg PO DAILY Qty: 30 5RF amlodipine 10 mg Tablet 10 mg PO BEDTIME 0RF docusate sodium 100 mg Capsule 100 mg PO BID 0RF hydralazine 50 mg Tablet 50 mg PO TID 0RF pantoprazole [Protonix] 40 mg tablet,delayed release (DR/EC) 40 mg PO BID@0630,1630 0RF lidocaine [Lidoderm] 5 % Adhesive Patch,Medicated 1 patch TOPICAL DAILY 0RF fluticasone propionate 50 mcg/actuation [place],Suspension 2 spray INTRANASAL DAILY 0RF acetaminophen [Arthritis Pain Relief (acetam)] 650 mg Tablet Extended Release 650 mg PO Q8H PRN (Reason: Pain (Scale Score 1-3)) 0RF Flovent HFA 110 mcg/actuation Hfa Aerosol Inhaler 2 puff INHALATION BID 0RF albuterol sulfate 2.5 mg /3 mL (0.083 %) Solution For Nebulization 2.5 mg inhalation Q4H PRN (Reason: shortness of breath/wheeze) Qty: 100 0RF cephalexin 250 mg capsule 250 mg PO BID Qty: 14 0RF doxycycline hyclate 100 mg capsule 100 mg PO BID Qty: 14 0RF tramadol 50 mg tablet 50 mg PO BID PRN (Reason: pain) Qty: 7 0RF amitriptyline 50 mg tablet 1 tab PO BEDTIME 0RF oxycodone-acetaminophen 7.5-325 mg tablet 1 tab PO Q6H PRN (Reason: severe pain) 0RF Trulicity 0.75 mg/0.5 mL pen injector 0.75 mg subcut QWEEK 30 Days Qty: 2.5 11RF carvedilol [Coreg] 25 mg tablet 25 mg PO BID 0RF Rx Instructions: must administer with a meal/food multivitamin Tablet 1 tab PO DAILY 0RF lisinopril 40 mg tablet 40 mg PO DAILY 0RF gabapentin 800 mg tablet 800 mg PO TID 0RF aspirin [Adult Low Dose Aspirin] 81 mg tablet,delayed release (DR/EC) 81 mg PO DAILY 0RF escitalopram oxalate [Lexapro] 20 mg tablet 20 mg PO DAILY 0RF mirtazapine 45 mg tablet 45 mg PO BEDTIME 0RF atorvastatin [Lipitor] 80 mg tablet 80 mg PO BEDTIME 0RF Tresiba FlexTouch U-100 100 unit/mL (3 mL) insulin pen 10 unit subcut DAILY 0RF (DME) FreeStyle Lite Strips Strip See Rx Instructions ea Not Applicable QID Qty: 10 0RF Rx Instructions: As directed clotrimazole 1 % cream 1 appl topical BID 0RF
--- NOTE | 2021-05-07 18:27 | ECG_ITS ---
Test Reason : diabetic wound Blood Pressure : / mmHG Vent. Rate : 063 BPM Atrial Rate : 063 BPM P-R Int : 136 ms QRS Dur : 090 ms QT Int : 430 ms P-R-T Axes : 028 -01 029 degrees QTc Int : 440 ms Normal sinus rhythm Minimal voltage criteria for LVH, may be normal variant ( R in aVL ) Nonspecific T wave abnormality Abnormal ECG When compared with ECG of 16-JAN-2021 06:07, No significant change was found Referred By: Linnette Sanford Electronically Signed By:Ghanshyam Daniel
[2021-05-07 18:55] VITALS: BP 160/71; PULSE 68; RESP 18; TEMP 36.8; O2SAT 97
[2021-05-07 19:32] LABS: Prothrombin Time 11.5 SEC (9.9-13.0)
[2021-05-07 19:32] LABS: Lactic Acid 1.6 mmol/L (0.5-2.0)
[2021-05-07 19:35] LABS: Partial Thromboplastin Time 37.5 SEC (24.1-38.0)
[2021-05-07 19:37] LABS: Alanine Aminotransferase 12 U/L (0-31); Albumin Level 4.1 g/dL (3.5-5.0); Alkaline Phosphatase 92 U/L (39-117); Aspartate Amino Transferase 11 U/L (5-31); Bilirubin Direct 0.2 mg/dL (0.0-0.5); Bilirubin Total 0.5 mg/dL (0.0-1.0); Lipase 17 U/L (8-78); Magnesium 1.5 mg/dL (1.6-2.6); Total Protein 6.6 g/dL (6.5-8.0)
[2021-05-07 19:39] LABS: COVID-19 Test Negative (Negative)
[2021-05-07 19:41] LABS: Troponin-I High Sensitivity 4.8 ng/L (<3.5-17.0)
[2021-05-07 20:24] LABS: C Reactive Protein 0.45 mg/dL (< or = 0.50)
[2021-05-07 21:00] LABS: Erythrocyte Sedimentation Rate 23 MM/HR (0-20)
[2021-05-07] MEDS: cefTRIAXone sodium 1 GM in 0.9 % Sodium Chloride 50 ML IV (21:02)
--- NOTE | 2021-05-07 21:08 | PHA.MEDREC ---
Pharmacy Consult ? Medication Reconciliation Pharmacy has completed the medication reconciliation.
[2021-05-07] MEDS: vancomycin HCL 750 MG in 0.9 % Sodium Chloride 250 ML 265 MG IV (21:33)
[2021-05-07 22:56] VITALS: BP 173/70; PULSE 66; RESP 16; TEMP 36.8; O2SAT 97
--- NOTE | 2021-05-07 23:09 | P.HPHOSP_ITS ---
History of Present Illness Date of Service: 05/07/21 Chief Complaint: leg infection Liberian speaking , history is obtained with the help of inter This is a 60-year-old female with past medical history of diabetes, hyperlipidemia, osteomyelitis, CAD status post CABG, hypertension who presents to the hospital with complaints of nonhealing right lower extremity wound. Patient reports that she went to her doctor today and he asked her to come to the hospital as he noted the wound to be more red. She usually gets care her primary care physician and does not go to wound clinic. pt reports that the wound is draining and that it is very painful. she denies any fever or chills. no chest pain, no SOB, N/V, no diarrhea or constipation, no urinary symptoms. Patient reports that she was recently prescribed p.o. antibiotics on the for this wound and she took the antibiotics for 2 days with no improvement. On arrival to the ED patient hemodynamically stable with no significant abnormal vitals except and initial elevated blood pressure that resolved Labs are significant for ESR of 23, magnesium of 1.5, CRP of 0.45 Patient started on ertapenem given previous cultures, case discussed with infectious disease and patient will be admitted for further evaluation Review of Systems Review of Systems: Yes all other systems are reviewed and are negative [facility] Medical History Arthritis Asthma CAD (coronary artery disease) Cyst (solitary) of breast Diabetes H. pylori infection HLD (hyperlipidemia) HTN (hypertension) HTN (hypertension) Kidney calculi T2DM (type 2 diabetes mellitus) Vitamin D deficiency Family History Mother Diabetes Liver cancer Surgical History History of breast surgery History of cardiac cath History of coronary artery bypass graft History of esophagogastroduodenoscopy (EGD) Hx of colonoscopy Social History Household Members: Family Housing: Apartment Do you presently have visiting nurse or other home services: No Alcohol intake: never Patient Tobacco Use Status: Current everyday Tobacco user Cigarettes Per Day: 2 Years Smoked: 40 +/- Second Hand Smoke Exposure: No Advance Directives: No Advance Directives Information Provided: No service: No Current occupational status: unemployed and disabled Meds Allergies Allergy/AdvReac Type Severity Reaction Status Date / Time latex [LATEX] Allergy Unknown RASH Verified 05/07/21 17:17 naproxen [From NAPROSYN] Allergy Unknown TACHYCARDIA Verified 05/07/21 17:17 Active Medications: Current Medications Acetaminophen (Acetaminophen 325 Mg Tablet) 650 mg PO Q6H PRN PRN Reason: Pain, Mild (Pain Scale 1-3) Docusate Sodium (Docusate Sodium 100 Mg Capsule) 100 mg PO DAILY PRN PRN Reason: Constipation Enoxaparin Sodium (Enoxaparin Sodium 40 Mg/0.4 Ml Syringe) 40 mg SUBCUT Q24H JORY Ondansetron HCl (Ondansetron Hcl 4 Mg/2 Ml Vial) 4 mg IVPUSH Q8H PRN PRN Reason: Nausea and Vomiting Sodium Chloride (0.9 % Sodium Chloride Flush 3 Ml Syringe) 3 ml IVFLUSH QSHIFT JORY Home Medications Medication Instructions Recorded Confirmed Last Taken Type metformin 1,000 mg tablet 1,000 mg PO BID 12/22/19 05/07/21 01/15/21 History aspirin 81 mg tablet,delayed 81 mg PO DAILY 01/02/20 05/07/21 01/15/21 History release (Adult Low Dose Aspirin) atorvastatin 80 mg tablet (Lipitor) 80 mg PO BEDTIME 01/02/20 05/07/21 01/15/21 History carvedilol 25 mg tablet (Coreg) 25 mg PO BID 01/02/20 05/07/21 01/15/21 History escitalopram oxalate 20 mg tablet 20 mg PO DAILY 01/02/20 05/07/21 01/15/21 History (Lexapro) gabapentin 800 mg tablet 800 mg PO TID 01/02/20 05/07/21 01/15/21 History insulin degludec 100 unit/mL (3 10 unit SUBCUT DAILY 01/02/20 05/07/21 01/15/21 History mL) subcutaneous pen (Tresiba FlexTouch U-100 insulin) lisinopril 40 mg tablet 40 mg PO DAILY 01/02/20 05/07/21 01/15/21 History mirtazapine 45 mg tablet 45 mg PO BEDTIME 01/02/20 05/07/21 05/08/20 08:00 History multivitamin 1 tab PO DAILY 01/02/20 05/07/21 01/15/21 History acetaminophen 650 mg 650 mg PO Q8H PRN 01/16/21 05/07/21 Unknown History tablet,extended release (Arthritis Pain Relief (acetaminophen) ER) amlodipine 10 mg tablet 10 mg PO BEDTIME 01/16/21 05/07/21 Unknown History docusate sodium 100 mg capsule 100 mg PO BID 01/16/21 05/07/21 Unknown History fluticasone propionate 110 2 puff INHALATION BID 01/16/21 05/07/21 Unknown Hist ory mcg/actuation HFA aerosol inhaler (Flovent HFA) fluticasone propionate 50 2 spray INTRANASAL DAILY 01/16/21 05/07/21 Unknown History mcg/actuation nasal spray,suspension hydralazine 50 mg tablet 50 mg PO TID 01/16/21 05/07/21 Unknown History lidocaine 5 % topical patch 1 patch TOPICAL DAILY 01/16/21 05/07/21 Unknown History (Lidoderm) pantoprazole 40 mg tablet,delayed 40 mg PO BID@0630,1630 01/16/21 05/07/21 Unknown History release (Protonix) blood sugar diagnostic (FreeStyle #10 ea 03/30/21 Unknown History Lite Strips) clotrimazole 1 % topical cream 1 appl TOPICAL BID 03/30/21 05/07/21 Unknown History amitriptyline 50 mg tablet 1 tab PO BEDTIME 05/07/21 05/07/21 Unknown History oxycodone-acetaminophen 7.5 mg-325 1 tab PO Q6H PRN 05/07/21 05/07/21 Unknown History mg tablet Physical Exam Vital Signs and Narrative: Vital Signs: Last Vital Signs Temp 98.3 F 05/07/21 22:56 Pulse 66 05/07/21 22:56 Resp 16 05/07/21 22:56 BP 173/70 H 05/07/21 22:56 Pulse Ox 97 05/07/21 22:56 BMI result Body Mass Index 0.3 Const: General: cooperative and no acute distress Orientation/consciousness: patient oriented x3 Eyes: General: appearance normal, both eyes and all related structures Pupils: Equal, round and reactive pupils present Resp: Effort & Inspection: normal respiratory effort Auscultation: clear to auscultation bilaterally Cardio: Rate: regular rate Rhythm: regular rhythm GI: Palpation (GI): Soft to palpation Auscultation: normal bowel sounds Skin: Other: 2 Ulcer on the medial aspect of the right calf, one of the ulcers his draining serosanguinus fluid Neuro: General: patient oriented x3 Cranial nerves: Yes Equal, round and reactive pupils present Cognition (Neuro): normal cognition Extrem: Other: Patient has 2 small ulcers on the right calcium a 1 of them draining, there is significant tenderness with no significant erythema, there is warmth around that area, no edema. General: Yes no pedal edema Results Labs CBC and Chem 7: 05/07/21 17:25 05/07/21 17:25 Labs: Laboratory Results - last 24 hr 05/07/21 05/07/21 05/07/21 17:25 17:25 17:25 MCV 89.2 MCH 29.0 MCHC 32.5 RDW 13.6 Plt Count 273 MPV 9.1 L Immature Gran % (Auto) 0.3 Neut % (Auto) 54.4 Lymph % (Auto) 33.8 [place] % (Auto) 5.8 Eos % (Auto) 5.2 H Baso % (Auto) 0.5 Lymph # (Auto) 2.2 [place] # (Auto) 0.4 Eos # (Auto) 0.3 Baso # (Auto) 0.0 Abs Immat Gran (auto) 0.02 Absolute Neuts (auto) 3.6 Absolute Nucleated RBC 0.000 Nucleated RBC % (auto) 0.0 ESR 23 H PT INR APTT Anion Gap 14 Estim Creat Clear Calc 70.6 Estimated GFR > 60 Random Glucose 205 H Lactic Acid Calcium 9.2 Magnesium Total Bilirubin Direct Bilirubin AST ALT Alkaline Phosphatase C-Reactive Protein 0.45 Total Protein Albumin Lipase COVID-19 ([facility]) COVID-19 Clin Com 05/07/21 05/07/21 05/07/21 19:07 19:08 19:08 MCV MCH MCHC RDW Plt Count MPV Immature Gran % (Auto) Neut % (Auto) Lymph % (Auto) [place] % (Auto) Eos % (Auto) Baso % (Auto) Lymph # (Auto) [place] # (Auto) Eos # (Auto) Baso # (Auto) Abs Immat Gran (auto) Absolute Neuts (auto) Absolute Nucleated RBC Nucleated RBC % (auto) ESR PT 11.5 INR 1.0 APTT 37.5 Anion Gap Estim Creat Clear Calc Estimated GFR Random Glucose Lactic Acid 1.6 Calcium Magnesium 1.5 L Total Bilirubin 0.5 Direct Bilirubin 0.2 AST 11 ALT 12 Alkaline Phosphatase 92 C-Reactive Protein Total Protein 6.6 Albumin 4.1 Lipase 17 COVID-19 ([facility]) COVID-19 Clin Com 05/07/21 19:20 MCV MCH MCHC RDW Plt Count MPV Immature Gran % (Auto) Neut % (Auto) Lymph % (Auto) [place] % (Auto) Eos % (Auto) Baso % (Auto) Lymph # (Auto) [place] # (Auto) Eos # (Auto) Baso # (Auto) Abs Immat Gran (auto) Absolute Neuts (auto) Absolute Nucleated RBC Nucleated RBC % (auto) ESR PT INR APTT Anion Gap Estim Creat Clear Calc Estimated GFR Random Glucose Lactic Acid Calcium Magnesium Total Bilirubin Direct Bilirubin AST ALT Alkaline Phosphatase C-Reactive Protein Total Protein Albumin Lipase COVID-19 ([facility]) Negative COVID-19 Clin Com See Note Imaging Radiologist's Impressions: Impressions Tibia/Fibula X-Ray 05/07/21 18:36 IMPRESSION: No definite radiographic evidence for osteomyelitis. However, if clinical suspicious for osteomyelitis is elevated, correlation with an MR with and without intravenous contrast of the area of concern could be obtained. No acute fractures or malalignment. Assessment and Plan (1) Leg wound, right: Status: Acute (2) Elevated erythrocyte sedimentation rate: Status: Acute Plan 60-year-old female with past medical history of diabetes and osteomyelitis presents hospital with complaints of a nonhealing right lower extremity ulcers. # right lower extremity leg wound-ulcers - given history of osteomyelitis as well as nonhealing status , will treat with IV antibiotics - was treated with Keflex and Oxy 2 days ago, with no improvement - has slightly elevated ESR - obtain MRI of the leg - consult infectious disease - follow cultures # elevated ESR - likely secondary to wound - will treat with IV antibiotics - fractures disease consulted # CAD status post CABG - stable, no chest pain - continue aspirin, plavix and carvedilol # hypertension - elevated - will resume home medications # diabetes - hold oral antihyperglycemics - continue degludec - will place on low-dose sliding scale insulin, diabetic diet DVT prophylaxis: Lovenox I anticipate a medically necessary 2 night stay for this patient as she has a nonhealing diabetic ulcer as well as failed outpatient therapy. Quality Stroke Does the patient have a stroke diagnosis?: No VTE Prior VTE?: No VTE Risk Level:: Medical - moderate - high VTE Device Contraindication: Treatment Not Indicated VTE Drug Contraindication: N/A - Med Ordered
[2021-05-07] MEDS: Ertapenem Sodium 1 GM in 0.9 % Sodium Chloride 50 ML IV (23:51)
[2021-05-07] MEDS: Acetaminophen 325 MG TABLET 650 MG PO (23:53)
[2021-05-08] VITALS (7 sets, daily range): BP systolic 101–181; BP diastolic 49–68; PULSE 61–69; RESP 14–18; TEMP 36.5–37.2; O2SAT 93–97
[2021-05-08] MEDS: Acetaminophen 325 MG TABLET 650 MG PO (04:31)
--- NOTE | 2021-05-08 05:59 | PC.NURSE ---
Pt sleeping, chest rise and fall observed, call light in reach, this RN continues to monitor.
[2021-05-08 06:31] LABS: MANUAL DIFF FLAG NO
[2021-05-08 06:41] LABS: Basophils Percent Auto 0.5 % (0-2); Eosinophils Absolute Auto 0.3 X10*3/uL (0.0-0.4); Eosinophils Percent Auto 5.8 % (0-4); Hematocrit 32.8 % (37.0-47.0); Hemoglobin 10.8 g/dl (12.0-16.0); Imm Gran Abs Auto 0.01 X10*3/uL (0.00-0.03); Imm Gran Pct Auto 0.2 % (0.0-0.4); Lymphocytes Absolute Auto 1.8 X10*3/uL (1.2-4.9); Lymphocytes Percent Auto 32.2 % (20-40); Mean Corpuscular HGB Conc 32.9 g/dl (31.0-35.0); Mean Corpuscular Hemoglobin 29.2 pg (27.0-33.0); Mean Corpuscular Volume 88.6 fL (80.0-98.0); Mean Platelet Volume 9.5 fL (9.4-12.3); Monocytes Absolute Auto 0.4 X10*3/uL (0.1-1.2); Monocytes Percent Auto 6.7 % (2-11); Neutrophils Absolute Auto 3.1 x10*3/uL (2.0-8.3); Neutrophils Percent Auto 54.6 % (45-73); Platelet Count 266 X10*3/uL (160-400); Red Cell Distribution Width 13.6 % (11.0-16.0); White Blood Count 5.7 X10*3/uL (4.8-10.8)
[2021-05-08 06:49] LABS: Anion Gap 12 (12-20); Blood Urea Nitrogen 11 mg/dL (9-16); Calcium 8.8 mg/dL (8.4-10.2); Carbon Dioxide 26 mmol/L (22-29); Chloride 105 mmol/L (96-108); Creatinine Clr Calc Pharmacy 85.6; Estimated Glomerular Filt Rate > 60; Glucose Random 162 mg/dL (60-115); Potassium 3.9 mmol/L (3.3-5.1); Sodium 139 mmol/L (135-145)
[2021-05-08 07:28] LABS: Glucose, Whole Blood 170 mg/dL (60-115)
--- NOTE | 2021-05-08 08:36 | PHA.PROG ---
Admission Date/Time: May 07, 2021 22:56 Indication: SKIN/SKIN STRUCTURE Weight in k.039 kg Adjusted body weight in K.516 KG [place] body weight in Kg: Obesity Dosing Indication % IBW: Serum Creatinine - Last 168 Hours 05/07/21 05/08/21 17:25 06:01 Creatinine 0.92 0.76 Estimated CrCl and GFR - Last 168 Hours 05/07/21 05/08/21 17:25 06:01 Estim Creat Clear Calc 70.6 85.6 Estimated GFR > 60 > 60 Vancomycin Loading Dose: 1250MG Current Vancomycin Dosing Regimen: 750MG Q12H Vancomycin Monitoring using AUC goal of 400 - 600 range with trough as surrogate marker: AUC 435; TROUGH 13.9 Date and Time for next Vancomycin Level to be drawn: 05/09@0700 Pharmacist Comments on Vancomycin Plan: Patient has history of Osteo/DFI Patient received 1x dose of 750 mg (11mg/kg) which is underdosed for a loading dose Spoke to provider: will repeat with proper load Vancomycin dosing will take advantage of [employer] as a clinical decision support tool that uses Bayesian modeling to calculate individual patient's pharmacokinetic parameters and forecast the patient's drug concentration time course with the target goal AUC 24 range of 400 - 600 mg/L/hr.
[2021-05-08] MEDS: 0.9 % Sodium Chloride Flush 3 ML SYRINGE IVFLUSH ×2 (09:02→17:00)
[2021-05-08] MEDS: hydroCHLOROthiazide 25 MG TABLET PO (09:03)
[2021-05-08] MEDS: Gabapentin 400 MG CAPSULE 800 MG PO ×3 (09:03→20:54)
[2021-05-08] MEDS: Omeprazole 20 MG CAPSULE.DR PO ×2 (09:03→15:58)
[2021-05-08] MEDS: lisinopriL 40 MG TABLET PO (09:03)
[2021-05-08] MEDS: hydrALAZINE HCl 50 MG TABLET PO ×3 (09:03→20:53)
[2021-05-08] MEDS: carvediloL 25 MG TABLET PO ×2 (09:03→20:57)
[2021-05-08] MEDS: Ferrous Sulfate 324 MG TABLET.DR PO ×2 (09:03→20:54)
[2021-05-08] MEDS: Aspirin Enteric Coated 81 MG TABLET.DR PO (09:03)
[2021-05-08] MEDS: Escitalopram Oxalate 20 MG TABLET PO (09:04)
[2021-05-08] MEDS: Clopidogrel Bisulfate 75 MG TABLET PO (09:04)
[2021-05-08] MEDS: Docusate Sodium 100 MG CAPSULE PO ×2 (09:04→20:53)
[2021-05-08] MEDS: Multivitamin TABLET 1 TAB PO (09:04)
[2021-05-08] MEDS: Lidocaine 4 % Patch ADH..PATCH 1 PATCH TRANSDERMA (09:05)
[2021-05-08] MEDS: Piperacillin Sodium/Tazobactam 4.5 GM in 0.9 % Sodium Chloride 100 ML IV ×3 (09:05→20:54)
[2021-05-08] MEDS: Enoxaparin Sodium 40 MG/0.4 ML SYRINGE SUBCUT (09:06)
[2021-05-08] MEDS: ondansetron HCL 4 MG/2 ML VIAL IVPUSH (09:22)
[2021-05-08] MEDS: Insulin Glargine,Hum.rec.anlog 100 UNIT/ML 10 ML VIAL 7 UNIT SUBCUT (09:24)
[2021-05-08 09:43] LABS: Appearance Urine CLEAR; Color Urine YELLOW; Glucose Urine UA 100 MG/DL (NEG); Leukocyte Esterase Urine NEG (NEG); Nitrite Urine NEG (NEG); Specific Gravity - Urine 1.015 (1.005-1.025); Urine Blood NEG (NEG); Urine Ketones NEG (NEG); Urine Protein NEG (NEG-TRACE)
[2021-05-08] MEDS: vancomycin HCL 1,250 MG in 0.9 % Sodium Chloride 250 ML 166.67 MG IV (10:00)
[2021-05-08] MEDS: Insulin Lispro 100 UNIT/ML 3 ML VIAL SUBCUT ×3 (10:01→21:04)
--- NOTE | 2021-05-08 12:05 | PC.NURSE ---
pt currently in MRI. vss, denies pain. meds given as documented. will continue to monitor
[2021-05-08 12:59] LABS: Glucose, Whole Blood 185 mg/dL (60-115)
--- NOTE | 2021-05-08 13:55 | PC.NURSE ---
pt returned from MRI, poc done and coverage given as documented. pt resting quietly, no complaints.
--- NOTE | 2021-05-08 15:13 | PC.NURSE ---
report given to JOANN Rueda. pt will be transferred to room 360 by [facility].
--- NOTE | 2021-05-08 15:20 | P.CNID_ITS ---
History of Present Illness Data of Consult Service Date: 05/08/21 Requesting physician: Durga Sosa Primary Care Provider: [facility] Reason for consult: right leg wound/cellulitis She presents with right leg wound and surrounding redness ,worse over last two days. She was seen at [facility] and wound found to be draining yellowish fluid and area surrounding it is hot. She has no osteomyelitis on XRay. She has been on Doxycycline and Keflex per PCP by report for two days with no improvement. She has no fever or chills Review of Systems Review of Systems: Yes all other systems are reviewed and are negative [facility] Past Medical History Medical History Arthritis Asthma CAD (coronary artery disease) Cyst (solitary) of breast Diabetes H. pylori infection HLD (hyperlipidemia) HTN (hypertension) HTN (hypertension) Kidney calculi T2DM (type 2 diabetes mellitus) Vitamin D deficiency Family History Family History Mother Diabetes Liver cancer Surgical History Surgical History History of breast surgery History of cardiac cath History of coronary artery bypass graft History of esophagogastroduodenoscopy (EGD) Hx of colonoscopy Social History Social History Household Members: Children and Friend(s) Housing: Apartment Do you presently have visiting nurse or other home services: No Alcohol intake: never Patient Tobacco Use Status: Never used Tobacco Tobacco use type: Cigarette Cigarettes Per Day: 2 Years Smoked: 40 +/- e-Cigarette/Vaping Use: Never Used Second Hand Smoke Exposure: No Use of substances other than those prescribed or required for medical reasons: No Advance Directives: No Patient : No service: No Current occupational status: unemployed and disabled Meds Allergies Allergy/AdvReac Type Severity Reaction Status Date / Time latex [LATEX] Allergy Unknown RASH Verified 06/01/21 15:33 naproxen [From NAPROSYN] Allergy Unknown TACHYCARDIA Verified 06/01/21 15:33 Active Medications: Current Medications Acetaminophen (Acetaminophen 325 Mg Tablet) 650 mg PO Q6H PRN PRN Reason: Pain, Mild (Pain Scale 1-3) Last Admin: 03/26/22 04:31 Dose: 650 mg Documented by: Albuterol Sulfate (Albuterol Sulfate (0.083%) 2.5 Mg/3 Ml Vial.Neb) 2.5 mg INHA LE Q4H PRN PRN Reason: shortness of breath/wheeze Amitriptyline HCl (Amitriptyline Hcl 50 Mg Tablet) 50 mg PO BEDTIME [facility] Amlodipine Besylate (Amlodipine Besylate 10 Mg Tablet) 10 mg PO BEDTIME [facility]; Protocol Aspirin (Aspirin Enteric Coated 81 Mg Tablet.) 81 mg PO DAILY [facility] Last Admin: 05/08/21 09:03 Dose: 81 mg Documented by: Atorvastatin Calcium (Atorvastatin Calcium 80 Mg Tablet) 80 mg PO BEDTIME [facility] Carvedilol (Carvedilol 25 Mg Tablet) 25 mg PO BID [facility]; Protocol Last Admin: 05/08/21 09:03 Dose: 25 mg Documented by: Clopidogrel Bisulfate (Clopidogrel Bisulfate 75 Mg Tablet) 75 mg PO DAILY [facility] Last Admin: 05/08/21 09:04 Dose: 75 mg Documented by: Dextrose (Dextrose 50 % 25 Gm/50 Ml Vial) 25 gm IVPUSH Q15M PRN; Protocol PRN Reason: per Hypoglycemia Standing Ord. Docusate Sodium (Docusate Sodium 100 Mg Capsule) 100 mg PO DAILY PRN PRN Reason: Constipation Docusate Sodium (Docusate Sodium 100 Mg Capsule) 100 mg PO BID [facility] Last Admin: 05/08/21 09:04 Dose: 100 mg Documented by: Enoxaparin Sodium (Enoxaparin Sodium 40 Mg/0.4 Ml Syringe) 40 mg SUBCUT Q24H [facility] Last Admin: 05/08/21 09:06 Dose: 40 mg Documented by: Escitalopram Oxalate (Escitalopram Oxalate 20 Mg Tablet) 20 mg PO DAILY [facility] Last Admin: 05/08/21 09:04 Dose: 20 mg Documented by: Ferrous Sulfate (Ferrous Sulfate 324 Mg Tablet.) 324 mg PO BID [facility] Last Admin: 05/08/21 09:03 Dose: 324 mg Documented by: Fluticasone Propionate (Fluticasone Propionate 100 Mcg Blst.W.Dev) 2 puff INHALE RBID [facility] Last Admin: 05/08/21 08:09 Dose: Not Given Documented by: Fluticasone Propionate (Fluticasone Propionate Nasal 16 Gm [place]) 2 spray NOSTRIL-B DAILY [facility] Gabapentin (Gabapentin 400 Mg Capsule) 800 mg PO TID [facility] Last Admin: 05/08/21 09:03 Dose: 800 mg Documented by: Glucose (Glucose Gel 15 Gm Gel..Gram.) 15 gm PO Q15M PRN; Protocol PRN Reason: per Hypoglycemia Standing Ord. Hydralazine HCl (Hydralazine Hcl 50 Mg Tablet) 50 mg PO TID [facility]; Protocol Last Admin: 05/08/21 09:03 Dose: 50 mg Documented by: Hydrochlorothiazide (Hydrochlorothiazide 25 Mg Tablet) 25 mg PO DAILY [facility]; Protocol Last Admin: 05/08/21 09:03 Dose: 25 mg Documented by: Piperacillin Sod/Tazobactam (Sod 4.5 gm/ Sodium Chloride) 100 mls @ 200 mls/hr IV Q6H [facility] Last Admin: 05/08/21 15:15 Dose: 200 mls/hr Documented by: Vancomycin HCl 750 mg/ Sodium (Chloride) 265 mls @ 265 mls/hr IV Q12H [facility] Insulin Glargine (Insulin Glargine,Hum.Rec.Anlog 100 Unit/Ml 10 Ml Vial) 7 unit SUBCUT DAILY [facility] Last Admin: 05/08/21 09:24 Dose: 7 unit Documented by: Insulin Human Lispro (Insulin Lispro 100 Unit/Ml 3 Ml Vial) 0 unit SUBCUT QIDACHS [facility]; Protocol Last Admin: 05/08/21 13:12 Dose: 2 unit Documented by: Lidocaine (Lidocaine 4 % Patch Adh..Patch) 1 patch TRANSDERMA DAILY [facility] Last Admin: 05/08/21 09:05 Dose: 1 patch Documented by: Lisinopril (Lisinopril 40 Mg Tablet) 40 mg PO DAILY [facility]; Protocol Last Admin: 05/08/21 09:03 Dose: 40 mg Documented by: Mirtazapine (Mirtazapine 15 Mg Tablet) 45 mg PO BEDTIME [facility] Multivitamins/Vitamin C (Multivitamin Tablet) 1 tab PO DAILY [facility] Last Admin: 05/08/21 09:04 Dose: 1 tab Documented by: Omeprazole (Omeprazole 20 Mg Capsule.) 20 mg PO BID@0630,1630 [facility] Last Admin: 05/08/21 09:03 Dose: 20 mg Documented by: Ondansetron HCl (Ondansetron Hcl 4 Mg/2 Ml Vial) 4 mg IVPUSH Q8H PRN PRN Reason: Nausea and Vomiting Last Admin: 05/08/21 09:22 Dose: 4 mg Documented by: Oxycodone HCl (Oxycodone Hcl Immed Release 5 Mg Tablet) 5 mg PO Q6H PRN PRN Reason: Pain, Severe (Pain Scale 7-10) Pharmacy Consult (Consult Rx Vancomycin Dosing) 1 each MISCELLANE DAILY PRN PRN Reason: Consult order Sodium Chloride (0.9 % Sodium Chloride Flush 3 Ml Syringe) 3 ml IVFLUSH [facility] Last Admin: 05/08/21 09:02 Dose: 3 ml Documented by: Tramadol HCl (Tramadol Hcl 50 Mg Tablet) 50 mg PO BID PRN PRN Reason: Pain, Moderate (Pain Scale 4-6 Home Medications Medication Instructions Recorded Confirmed Last Taken Type metformin 1,000 mg tablet 1,000 mg PO BID 12/22/19 05/07/21 01/15/21 History aspirin 81 mg tablet,delayed 81 mg PO DAILY 01/02/20 05/07/21 01/15/21 History release (Adult Low Dose Aspirin) atorvastatin 80 mg tablet (Lipitor) 80 mg PO BEDTIME 01/02/20 05/07/21 01/15/21 History carvedilol 25 mg tablet (Coreg) 25 mg PO BID 01/02/20 05/07/21 01/15/21 History escitalopram oxalate 20 mg tablet 20 mg PO DAILY 01/02/20 05/07/21 01/15/21 History (Lexapro) gabapentin 800 mg tablet 800 mg PO TID 01/02/20 05/07/21 01/15/21 History insulin degludec 100 unit/mL (3 10 unit SUBCUT DAILY 01/02/20 05/07/21 01/15/21 History mL) subcutaneous pen (Tresiba FlexTouch U-100 insulin) lisinopril 40 mg tablet 40 mg PO DAILY 01/02/20 05/07/21 01/15/21 History mirtazapine 45 mg tablet 45 mg PO BEDTIME 01/02/20 05/07/21 05/08/20 08:00 History multivitamin 1 tab PO DAILY 01/02/20 05/07/21 01/15/21 History acetaminophen 650 mg 650 mg PO Q8H PRN 01/16/21 05/07/21 Unknown History tablet,extended release (Arthritis Pain Relief (acetaminophen) ER) amlodipine 10 mg tablet 10 mg PO BEDTIME 01/16/21 05/07/21 Unknown History docusate sodium 100 mg capsule 100 mg PO BID 01/16/21 05/07/21 Unknown History fluticasone propionate 110 2 puff INHALATION BID 01/16/21 05/07/21 Unknown History mcg/actuation HFA aerosol inhaler (Flovent HFA) fluticasone propionate 50 2 spray INTRANASAL DAILY 01/16/21 05/07/21 Unknown History mcg/actuation nasal spray,suspension hydralazine 50 mg tablet 50 mg PO TID 01/16/21 05/07/21 Unknown History lidocaine 5 % topical patch 1 patch TOPICAL DAILY 01/16/21 05/07/21 Unknown History (Lidoderm) pantoprazole 40 mg tablet,delayed 40 mg PO BID@0630,1630 01/16/21 05/07/21 Unknown History release (Protonix) blood sugar diagnostic (FreeStyle #10 ea 03/30/21 Unknown History Lite Strips) clotrimazole 1 % topical cream 1 appl TOPICAL BID 03/30/21 05/07/21 Unknown History amitriptyline 50 mg tablet 1 tab PO BEDTIME 05/07/21 05/07/21 Unknown History oxycodone-acetaminophen 7.5 mg-325 1 tab PO Q6H PRN 05/07/21 05/07/21 Unknown History mg tablet Physical Exam Vital Signs: Vital Signs: Last Vital Signs Temp 99.0 F 05/08/21 11:51 Pulse 68 05/08/21 11:51 Resp 15 05/08/21 11:51 BP 137/62 05/08/21 11:51 Pulse Ox 95 05/08/21 11:51 BMI result Body Mass Index 0.3 Const: General: cooperative HEENT: Head: Yes normal to inspection Mouth: Normal oral and palatal mucosa present Resp: Effort & Inspection: normal respiratory effort Cardio: Rate: regular rate Rhythm: regular rhythm GI: Palpation (GI): Soft to palpation and nontender Skin: General skin exam: no rashes or lesions noted Extrem: Other: reddened circular 3 cm areas posterior righ calf Results Labs CBC & Chem 7: 05/08/21 06:01 05/09/21 07:30 Labs: Short CBC 05/07/21 05/08/21 Range/Units 17:25 06:01 WBC 6.6 5.7 (4.8-10.8) X10*3/uL Hgb 11.0 L 10.8 L (12.0-16.0) g/dl Hct 33.8 L 32.8 L (37.0-47.0) % Plt Count 273 266 (160-400) X10*3/uL BMP 05/07/21 05/08/21 17:25 06:01 Sodium 139 139 Potassium 4.0 3.9 Chloride 104 105 Carbon Dioxide 25 26 BUN 11 11 Creatinine 0.92 0.76 Calcium 9.2 8.8 Liver Function 05/07/21 Range/Units 19:08 Total Bilirubin 0.5 (0.0-1.0) mg/dL Direct Bilirubin 0.2 (0.0-0.5) mg/dL AST 11 (5-31) U/L ALT 12 (0-31) U/L Alkaline Phosphatase 92 (39-117) U/L Albumin 4.1 (3.5-5.0) g/dL Urine 05/08/21 Range/Units 08:32 Urine Color YELLOW Urine Appearance CLEAR Urine pH 6.0 (5.0-8.0) Ur Specific [place] 1.015 (1.005-1.025) Urine Protein NEG (NEG-TRACE) MG/DL Urine Glucose (UA) 100 H (NEG) MG/DL Assessment and Plan (1) Leg wound, right: Status: Acute She has wounds right leg ?abscess/ doubt osteomyelitis She has eschar She has blood cultures pending. ESR is only 23 and this is not concerning for osteomyelitis. 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 Debridement or drainage if abscess. She may benefit from vascular testing if not fully done. Antibiotic type and duration depends on results of above.
[2021-05-08] MEDS: oxyCODONE HCl Immed Release 5 MG TABLET PO ×2 (15:58→17:11)
[2021-05-08 16:28] LABS: Glucose, Whole Blood 95 mg/dL (60-115)
--- NOTE | 2021-05-08 17:17 | P.PNIM_ITS ---
Subjective Subjective Date of Service: 05/08/21 Interval History: No acute issues overnight. 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) Review of Systems Denies chest pain Denies shortness of breath Denies nausea vomiting diarrhea Denies fever chills Physical Exam Vital Signs: Vital Signs: Last Vital Signs Temp 97.9 F 05/08/21 15:37 Pulse 61 05/08/21 15:37 Resp 14 05/08/21 15:37 BP 131/68 05/08/21 15:37 Pulse Ox 97 05/08/21 15:37 BMI result Body Mass Index 0.3 Const: Other: Awake alert oriented x3 no acute distress Resp: Other: Clear to auscultation bilaterally no rales rhonchi or wheezes Cardio: Other: No S4; positive S1-S2; no S3 murmurs or gallops GI: Other: Soft nontender nondistended normoactive bowel sounds Extrem: Other: 2.5 cm round scabbed area mid gastrocs tender to touch otherwise no edema bilaterally Objective Data Active Medications Acetaminophen (Acetaminophen 325 Mg Tablet) 650 mg PO Q6H PRN PRN Reason: Pain, Mild (Pain Scale 1-3) Last Admin: 05/08/21 04:31 Dose: 650 mg Documented by: LOLA Albuterol Sulfate (Albuterol Sulfate (0.083%) 2.5 Mg/3 Ml Vial.Neb) 2.5 mg INHALE Q4H PRN PRN Reason: shortness of breath/wheeze Amitriptyline HCl (Amitriptyline Hcl 50 Mg Tablet) 50 mg PO BEDTIME COUNTS INCLUDE 234 BEDS AT THE [facility] Amlodipine Besylate (Amlodipine Besylate 10 Mg Tablet) 10 mg PO BEDTIME [facility] 234 BEDS AT THE [facility]; Protocol Aspirin (Aspirin Enteric Coated 81 Mg Tablet.) 81 mg PO DAILY [facility] 234 BEDS AT [facility] Last Admin: 05/08/21 09:03 Dose: 81 mg Documented by: EKATERINA Atorvastatin Calcium (Atorvastatin Calcium 80 Mg Tablet) 80 mg PO BEDTIME [facility]S [facility]CLUDE 234 BEDS AT THE [facility] Carvedilol (Carvedilol 25 Mg Tablet) 25 mg PO BID [facility] 234 BEDS AT [facility]; Protocol Last Admin: 05/08/21 09:03 Dose: 25 mg Documented by: EKATERINA Clopidogrel Bisulfate (Clopidogrel Bisulfate 75 Mg Tablet) 75 mg PO DAILY [facility]CLUDE 234 BEDS AT THE [facility] Last Admin: 05/08/21 09:04 Dose: 75 mg Documented by: EKATERINA Dextrose (Dextrose 50 % 25 Gm/50 Ml Vial) 25 gm IVPUSH Q15M PRN; Protocol PRN Reason: per Hypoglycemia Standing Ord. Docusate Sodium (Docusate Sodium 100 Mg Capsule) 100 mg PO DAILY PRN PRN Reason: Constipation Docusate Sodium (Docusate Sodium 100 Mg Capsule) 100 mg PO BID [facility]S [facility]CLUDE 234 BEDS AT [facility] Last Admin: 05/08/21 09:04 Dose: 100 mg Documented by: EKATERINA Enoxaparin Sodium (Enoxaparin Sodium 40 Mg/0.4 Ml Syringe) 40 mg SUBCUT Q24H [facility]S INCLUDE 234 BEDS AT THE [facility] Last Admin: 05/08/21 09:06 Dose: 40 mg Documented by: EKATERINA Escitalopram Oxalate (Escitalopram Oxalate 20 Mg Tablet) 20 mg PO DAILY [facility]CLUDE 234 BEDS AT [facility] Last Admin: 05/08/21 09:04 Dose: 20 mg Documented by: EKATERINA Ferrous Sulfate (Ferrous Sulfate 324 Mg Tablet.Dr) 324 mg PO BID [facility]S [facility]CLUDE 234 BEDS AT THE [facility] Last Admin: 05/08/21 09:03 Dose: 324 mg Documented by: EKATERINA Fluticasone Propionate (Fluticasone Propionate 100 Mcg Blst.W.Dev) 2 puff INHALE RBID COUNTS INCLUDE 234 BEDS AT THE [facility] Last Admin: 05/08/21 08:09 Dose: Not Given Documented by: FRANCESCA Non-Admin Reason: Med Not Available Fluticasone Propionate (Fluticasone Propionate Nasal 16 Gm [place]) 2 spray NOSTRIL-B DAILY [facility]S [facility]CLUDE 234 BEDS AT THE [facility] Last Admin: 05/08/21 15:52 Dose: Not Given Documented by: QUAN Non-Admin Reason: pt in ED Gabapentin (Gabapentin 400 Mg Capsule) 800 mg PO TID [facility]S INCLUDE 234 BEDS AT THE [facility] Last Admin: 05/08/21 15:59 Dose: 800 mg Documented by: QUAN Glucose (Glucose Gel 15 Gm Gel..Gram.) 15 gm PO Q15M PRN; Protocol PRN Reason: per Hypoglycemia Standing Ord. Hydralazine HCl (Hydralazine Hcl 50 Mg Tablet) 50 mg PO TID [facility]S [facility]CLUDE 234 BEDS AT [facility]; Protocol Last Admin: 05/08/21 15:59 Dose: 50 mg Documented by: QUAN Hydrochlorothiazide (Hydrochlorothiazide 25 Mg Tablet) 25 mg PO DAILY [facility]CLUDE 234 BEDS AT THE [facility]; Protocol Last Admin: 05/08/21 09:03 Dose: 25 mg Documented by: EKATERINA Piperacillin Sod/Tazobactam (Sod 4.5 gm/ Sodium Chloride) 100 mls @ 200 mls/hr IV Q6H COUNTS INCLUDE 234 BEDS AT THE [facility] Last Infusion: 05/08/21 16:52 Dose: 0 mls/hr Documented by: QUAN Vancomycin HCl 750 mg/ Sodium (Chloride) 265 mls @ 265 mls/hr IV Q12H COUNTS INCLUDE 234 BEDS AT THE [facility] Insulin Glargine (Insulin Glargine,Hum.Rec.Anlog 100 Unit/Ml 10 Ml Vial) 7 unit SUBCUT DAILY [facility]S INCLUDE 234 BEDS AT THE [facility] Last Admin: 05/08/21 09:24 Dose: 7 unit Documented by: EKATERINA Insulin Human Lispro (Insulin Lispro 100 Unit/Ml 3 Ml Vial) 0 unit SUBCUT QIDACHS COUNTS INCLUDE 234 BEDS AT THE [facility]; Protocol Last Admin: 05/08/21 17:02 Dose: Not Given Documented by: QUAN Non-Admin Reason: No Insulin Coverage Lidocaine (Lidocaine 4 % Patch Adh..Patch) 1 patch TRANSDERMA DAILY [facility]S INCLUDE 234 BEDS AT THE [facility] Last Admin: 05/08/21 09:05 Dose: 1 patch Documented by: EKATERINA Lisinopril (Lisinopril 40 Mg Tablet) 40 mg PO DAILY [facility] INCLUDE 234 BEDS AT [facility]; Protocol Last Admin: 05/08/21 09:03 Dose: 40 mg Documented by: EKATERINA Mirtazapine (Mirtazapine 15 Mg Tablet) 45 mg PO BEDTIME COUNTS INCLUDE 234 BEDS AT THE [facility] Multivitamins/Vitamin C (Multivitamin Tablet) 1 tab PO DAILY [facility]S INCLUDE 234 BEDS AT THE [facility] Last Admin: 05/08/21 09:04 Dose: 1 tab Documented by: EKATERINA Omeprazole (Omeprazole 20 Mg Capsule.Dr) 20 mg PO BID@0630,1630 COUNTS INCLUDE 234 BEDS AT THE [facility] Last Admin: 05/08/21 15:58 Dose: 20 mg Documented by: QUAN Ondansetron HCl (Ondansetron Hcl 4 Mg/2 Ml Vial) 4 mg IVPUSH Q8H PRN PRN Reason: Nausea and Vomiting Last Admin: 05/08/21 09:22 Dose: 4 mg Documented by: EKATERINA Oxycodone HCl (Oxycodone Hcl Immed Release 5 Mg Tablet) 10 mg PO Q4H PRN PRN Reason: Pain, Severe (Pain Scale 7-10) Pharmacy Consult (Consult Rx Vancomycin Dosing) 1 each MISCELLANE DAILY PRN PRN Reason: Consult order Sodium Chloride (0.9 % Sodium Chloride Flush 3 Ml Syringe) 3 ml IVFLUSH QSHIFT COUNTS INCLUDE 234 BEDS AT THE [facility] Last Admin: 05/08/21 17:00 Dose: 3 ml Documented by: QUAN Tramadol HCl (Tramadol Hcl 50 Mg Tablet) 50 mg PO BID PRN PRN Reason: Pain, Moderate (Pain Scale 4-6 Labs CBC & Chem 7: 05/08/21 06:01 05/08/21 06:01 Labs: Laboratory Results - last 24 hr 05/07/21 05/07/21 05/07/21 17:25 17:25 17:25 MCV 89.2 MCH 29.0 MCHC 32.5 RDW 13.6 Plt Count 273 MPV 9.1 L Immature Gran % (Auto) 0.3 Neut % (Auto) 54.4 Lymph % (Auto) 33.8 [place] % (Auto) 5.8 Eos % (Auto) 5.2 H Baso % (Auto) 0.5 Lymph # (Auto) 2.2 [place] # (Auto) 0.4 Eos # (Auto) 0.3 Baso # (Auto) 0.0 Abs Immat Gran (auto) 0.02 Absolute Neuts (auto) 3.6 Absolute Nucleated RBC 0.000 Nucleated RBC % (auto) 0.0 ESR 23 H PT INR APTT Anion Gap 14 Estim Creat Clear Calc 70.6 Estimated GFR > 60 POC Glucose Random Glucose 205 H Lactic Acid Calcium 9.2 Magnesium Total Bilirubin Direct Bilirubin AST ALT Alkaline Phosphatase C-Reactive Protein 0.45 Total Protein Albumin Lipase Urine Color Urine Appearance Urine pH Ur Specific [place] Urine Protein Urine Glucose (UA) Urine Ketones Urine Blood Urine Nitrite Ur Leukocyte Esterase COVID-19 ([facility]) COVID-19 Clin Com 05/07/21 05/07/21 05/07/21 19:07 19:08 19:08 MCV MCH MCHC RDW Plt Count MPV Immature Gran % (Auto) Neut % (Auto) Lymph % (Auto) [place] % (Auto) Eos % (Auto) Baso % (Auto) Lymph # (Auto) [place] # (Auto) Eos # (Auto) Baso # (Auto) Abs Immat Gran (auto) Absolute Neuts (auto) Absolute Nucleated RBC Nucleated RBC % (auto) ESR PT 11.5 INR 1.0 APTT 37.5 Anion Gap Estim Creat Clear Calc Estimated GFR POC Glucose Random Glucose Lactic Acid 1.6 Calcium Magnesium 1.5 L Total Bilirubin 0.5 Direct Bilirubin 0.2 AST 11 ALT 12 Alkaline Phosphatase 92 C-Reactive Protein Total Protein 6.6 Albumin 4.1 Lipase 17 Urine Color Urine Appearance Urine pH Ur Specific [place] Urine Protein Urine Glucose (UA) Urine Ketones Urine Blood Urine Nitrite Ur Leukocyte Esterase COVID-19 ([facility]) COVID-19 Clin Com 05/07/21 05/08/21 05/08/21 19:20 06:01 06:01 MCV 88.6 MCH 29.2 MCHC 32.9 RDW 13.6 Plt Count 266 MPV 9.5 Immature Gran % (Auto) 0.2 Neut % (Auto) 54.6 Lymph % (Auto) 32.2 [place] % (Auto) 6.7 Eos % (Auto) 5.8 H Baso % (Auto) 0.5 Lymph # (Auto) 1.8 [place] # (Auto) 0.4 Eos # (Auto) 0.3 Baso # (Auto) 0.0 Abs Immat Gran (auto) 0.01 Absolute Neuts (auto) 3.1 Absolute Nucleated RBC 0.000 Nucleated RBC % (auto) 0.0 ESR PT INR APTT Anion Gap 12 Estim Creat Clear Calc 85.6 Estimated GFR > 60 POC Glucose Random Glucose 162 H Lactic Acid Calcium 8.8 Magnesium Total Bilirubin Direct Bilirubin AST ALT Alkaline Phosphatase C-Reactive Protein Total Protein Albumin Lipase Urine Color Urine Appearance Urine pH Ur Specific [place] Urine Protein Urine Glucose (UA) Urine Ketones Urine Blood Urine Nitrite Ur Leukocyte Esterase COVID-19 ([facility]) Negative COVID-19 Clin Com See Note 05/08/21 05/08/21 05/08/21 07:22 08:32 12:55 MCV MCH MCHC RDW Plt Count MPV Immature Gran % (Auto) Neut % (Auto) Lymph % (Auto) [place] % (Auto) Eos % (Auto) Baso % (Auto) Lymph # (Auto) [place] # (Auto) Eos # (Auto) Baso # (Auto) Abs Immat Gran (auto) Absolute Neuts (auto) Absolute Nucleated RBC Nucleated RBC % (auto) ESR PT INR APTT Anion Gap Estim Creat Clear Calc Estimated GFR POC Glucose 170 H 185 H Random Glucose Lactic Acid Calcium Magnesium Total Bilirubin Direct Bilirubin AST ALT Alkaline Phosphatase C-Reactive Protein Total Protein Albumin Lipase Urine Color YELLOW Urine Appearance CLEAR Urine pH 6.0 Ur Specific [place] 1.015 Urine Protein NEG Urine Glucose (UA) 100 H Urine Ketones NEG Urine Blood NEG Urine Nitrite NEG Ur Leukocyte Esterase NEG COVID-19 ([facility]) COVID-19 Clin Com 05/08/21 15:57 MCV MCH MCHC RDW Plt Count MPV Immature Gran % (Auto) Neut % (Auto) Lymph % (Auto) [place] % (Auto) Eos % (Auto) Baso % (Auto) Lymph # (Auto) [place] # (Auto) Eos # (Auto) Baso # (Auto) Abs Immat Gran (auto) Absolute Neuts (auto) Absolute Nucleated RBC Nucleated RBC % (auto) ESR PT INR APTT Anion Gap Estim Creat Clear Calc Estimated GFR POC Glucose 95 Random Glucose Lactic Acid Calcium Magnesium Total Bilirubin Direct Bilirubin AST ALT Alkaline Phosphatase C-Reactive Protein Total Protein Albumin Lipase Urine Color Urine Appearance Urine pH Ur Specific [place] Urine Protein Urine Glucose (UA) Urine Ketones Urine Blood Urine Nitrite Ur Leukocyte Esterase COVID-19 ([facility]) COVID-19 Clin Com Assessment and Plan (1) Leg wound, right: Status: Acute (2) CAD (coronary artery disease): Status: Acute (3) T2DM (type 2 diabetes mellitus): Status: Acute Plan 60-year-old female with past medical history of diabetes and osteomyelitis presents hospital with complaints of a nonhealing right lower extremity ulcers. 1.Right lower extremity leg wound-ulcers - MRI negative for abscess or osteomyelitis -continue antibiotics as ordered; will discuss with ID in the a.m. 2.CAD status post CABG - stable, no chest pain - continue aspirin, plavix and carvedilol 3.Hypertension - elevated - will resume home medications 4.Diabetes - continue degludec - will place on low-dose sliding scale insulin, diabetic diet DVT prophylaxis: Lovenox I anticipate a medically necessary 2 night stay for this patient as she has a nonhealing diabetic ulcer as well as failed outpatient therapy. Quality Stroke Does the patient have a stroke diagnosis?: No VTE Prior VTE?: No VTE Risk Level:: Medical - moderate - high VTE Device Contraindication: Treatment Not Indicated VTE Drug Contraindication: N/A - Med Ordered
[2021-05-08] MEDS: Amitriptyline HCl 50 MG TABLET PO (20:53)
[2021-05-08] MEDS: Mirtazapine 15 MG TABLET 45 MG PO (20:53)
[2021-05-08] MEDS: amLODIPine Besylate 10 MG TABLET PO (20:53)
[2021-05-08] MEDS: Atorvastatin Calcium 80 MG TABLET PO (20:54)
[2021-05-08 21:03] LABS: Glucose, Whole Blood 345 mg/dL (60-115)
[2021-05-08] MEDS: vancomycin HCL 750 MG in 0.9 % Sodium Chloride 250 ML 265 MG IV (21:28)
[2021-05-09] MEDS: Piperacillin Sodium/Tazobactam 4.5 GM in 0.9 % Sodium Chloride 100 ML IV ×2 (02:45→08:36)
[2021-05-09 03:30] VITALS: BP 127/59; PULSE 61; RESP 18; TEMP 36.3; O2SAT 94
[2021-05-09] MEDS: Omeprazole 20 MG CAPSULE.DR PO (06:23)
[2021-05-09 07:36] VITALS: BP 179/69; PULSE 64; RESP 18; TEMP 36.7; O2SAT 95
[2021-05-09 07:53] LABS: Glucose, Whole Blood 104 mg/dL (60-115)
[2021-05-09 07:54] LABS: Anion Gap 12 (12-20); Blood Urea Nitrogen 13 mg/dL (9-16); Calcium 8.7 mg/dL (8.4-10.2); Carbon Dioxide 28 mmol/L (22-29); Chloride 106 mmol/L (96-108); Creatinine Clr Calc Pharmacy 57.2; Estimated Glomerular Filt Rate > 60; Glucose Random 112 mg/dL (60-115); Potassium 3.6 mmol/L (3.3-5.1); Sodium 142 mmol/L (135-145)
[2021-05-09 08:00] LABS: Vancomycin Trough 18.4 mcg/mL (10.0-20.0)
--- NOTE | 2021-05-09 08:27 | HE.PHANOTE ---
RE Vanco Patient had a rise in SCR to 0.91, still under presentation value. After 3 doses, trough returned back at 18.4. Per insight, 750mg q12h would give an AUC of 598 and trough of 20.0, I lowered the dose to 1250mg q24 starting at 2100 to give a suspected AUC of 509 and trough of 14.3. Next trough is scheduled for 05/10 @ 1900 to assess drug clearance vs efficacy. Thanks Yefri
[2021-05-09] MEDS: Docusate Sodium 100 MG CAPSULE PO (08:36)
[2021-05-09] MEDS: Aspirin Enteric Coated 81 MG TABLET.DR PO (08:36)
[2021-05-09] MEDS: carvediloL 25 MG TABLET PO (08:36)
[2021-05-09] MEDS: lisinopriL 40 MG TABLET PO (08:36)
[2021-05-09] MEDS: hydrALAZINE HCl 50 MG TABLET PO (08:36)
[2021-05-09] MEDS: Gabapentin 400 MG CAPSULE 800 MG PO (08:36)
[2021-05-09] MEDS: Multivitamin TABLET 1 TAB PO (08:36)
[2021-05-09] MEDS: hydroCHLOROthiazide 25 MG TABLET PO (08:37)
[2021-05-09] MEDS: Clopidogrel Bisulfate 75 MG TABLET PO (08:37)
[2021-05-09] MEDS: Ferrous Sulfate 324 MG TABLET.DR PO (08:37)
[2021-05-09] MEDS: 0.9 % Sodium Chloride Flush 3 ML SYRINGE IVFLUSH (08:37)
[2021-05-09] MEDS: Escitalopram Oxalate 20 MG TABLET PO (08:37)
[2021-05-09] MEDS: Enoxaparin Sodium 40 MG/0.4 ML SYRINGE SUBCUT (08:39)
[2021-05-09] MEDS: Fluticasone Propionate Nasal 16 GM SPRAY 2 SPRAY NOSTRIL-B (09:25)
[2021-05-09] MEDS: Insulin Glargine,Hum.rec.anlog 100 UNIT/ML 10 ML VIAL 7 UNIT SUBCUT (09:25)
[2021-05-09] MEDS: Collagenase Clostridium Hist. 30 GM TUBE 1 APPL TOPICAL (09:25)
--- NOTE | 2021-05-09 09:39 | PM.DS ---
DS: Providers Provider Date of Service: 05/09/21 Date of admission: 05/07/21 22:56 Date of discharge: 05/09/21 Primary care physician: [facility] Consults: 05/07/21 21:18 Consult to Infectious Diseases Routine Consulting Provider: Sasha Castellanos Reason for consultation: Osteomyelitis 05/07/21 22:52 Consult to Infectious Diseases Routine Consulting Provider: Sasha Castellanos Reason for consultation: Foot infection Has provider been notified: No 05/09/21 09:12 Consult to General Surgery Routine Consulting Provider: Simon Yen Reason for consultation: diabetic ulcer Has provider been notified: Yes DS: Diagnosis Discharge Diagnosis (1) Leg wound, right: Status: Acute (2) CAD (coronary artery disease): Status: Acute (3) T2DM (type 2 diabetes mellitus): Status: Acute DS: Summary Hospital Course Hospital Course: This is a 60-year-old female with past medical history of diabetes, hyperlipidemia, osteomyelitis, CAD status post CABG, hypertension who presents to the hospital with complaints of nonhealing right lower extremity wound.? Patient reports that she went to her doctor today and he asked her to come to the hospital as he noted the wound to be more red.? She usually gets care her primary care physician and does not go to wound clinic. pt reports that the wound is draining and that it is very painful. she denies any fever or chills. no chest pain, no SOB, N/V, no diarrhea or constipation, no urinary symptoms.? Patient reports that she was recently prescribed p.o. antibiotics on the for this wound and she took the antibiotics for 2 days with no improvement. Hospital Course Patient admitted started on vancomycin and Zosyn for broad coverage with consideration for osteomyelitis. Subsequent MRI of the right lower leg failed to demonstrate abscess or osteomyelitis. Consult placed to surgery who felt this was likely secondary to inset bite and no surgical intervention was indicated. At this time patient pain is markedly improved since admission, there is no surrounding erythema. She will be discharged home on Augmentin to follow-up with PCP Time Spent with Patient Time attestation: Total time spent providing and/or coordinating discharge services: Discharge coordination time: Greater than 30 minutes Quality: Stroke Does the patient have a stroke diagnosis?: No Physical Exam Vital Signs: Vital Signs: Last Vital Signs Temp 98.1 F 05/09/21 07:36 Pulse 64 05/09/21 07:36 Resp 18 05/09/21 07:36 BP 179/69 H 05/09/21 07:36 Pulse Ox 95 05/09/21 07:36 BMI result Body Mass Index 0.3 Const: Other: Awake alert oriented x3 no acute distress Resp: Other: Clear to auscultation bilaterally no rales rhonchi or wheezes Cardio: Other: No S4; positive S1-S2; no S3 murmurs or gallops GI: Other: Soft nontender nondistended normoactive bowel sounds Extrem: Other: 2.5 cm round scabbed area mid gastrocs tender to touch otherwise no edema bilaterally DS: Data Data Completed and Pending Completed studies during hospitalization [Text1]: Procedures Extirpation of Matter from Left Femoral Artery, Open Approach (05/09/20) Extirpation of Matter from Left Popliteal Artery, Open Approach (05/09/20) Fluoroscopy of Aorta and Bilateral Lower Extremity Arteries (05/09/20) Insertion of Infusion Device into Superior Vena Cava, Percutaneous Approach (05/09/20) Supplement Left Femoral Artery with Synthetic Substitute, Open Approach (05/09/20) Supplement Left Popliteal Artery with Synthetic Substitute, Open Approach (05/09/20) Transfusion of Nonautologous Red Blood Cells into Peripheral Vein, Percutaneous Approach (05/09/20) Labs on day of discharge: Laboratory Results - last 24 hr 05/07/21 05/07/21 05/08/21 17:25 17:25 08:32 ESR 23 H Sodium Potassium Chloride Carbon Dioxide Anion Gap BUN Creatinine Estim Creat Clear Calc Estimated GFR POC Glucose Random Glucose Calcium C-Reactive Protein 0.45 Urine Color YELLOW Urine Appearance CLEAR Urine pH 6.0 Ur Specific [place] 1.015 Urine Protein NEG Urine Glucose (UA) 100 H Urine Ketones NEG Urine Blood NEG Urine Nitrite NEG Ur Leukocyte Esterase NEG Vancomycin Trough 05/08/21 05/08/21 05/08/21 12:55 15:57 20:55 ESR Sodium Potassium Chloride Carbon Dioxide Anion Gap BUN Creatinine Estim Creat Clear Calc Estimated GFR POC Glucose 185 H 95 345 H Random Glucose Calcium C-Reactive Protein Urine Color Urine Appearance Urine pH Ur Specific [place] Urine Protein Urine Glucose (UA) Urine Ketones Urine Blood Urine Nitrite Ur Leukocyte Esterase Vancomycin Trough 05/09/21 05/09/21 05/09/21 07:30 07:30 07:41 ESR Sodium 142 Potassium 3.6 Chloride 106 Carbon Dioxide 28 Anion Gap 12 BUN 13 Creatinine 0.91 Estim Creat Clear Calc 57.2 Estimated GFR > 60 POC Glucose 104 Random Glucose 112 Calcium 8.7 C-Reactive Protein Urine Color Urine Appearance Urine pH Ur Specific [place] Urine Protein Urine Glucose (UA) Urine Ketones Urine Blood Urine Nitrite Ur Leukocyte Esterase Vancomycin Trough 18.4 Preliminary micro results at discharge 05/07/21 19:41 Blood Culture - Preliminary Blood - Venous No growth after 24 hours. 05/07/21 19:07 Blood Culture - Preliminary Blood - Venous No growth after 24 hours. Discharge Plan Discharge Patient Disposition: Home, Self-Care Discharge Diagnosis: diabetic wound Referrals: [facility] [Primary Care Provider] - 1 Week Discharge Medications: New amoxicillin-pot clavulanate 875-125 mg tablet 1 tab PO BID Qty: 20 0RF Continued hydrochlorothiazide 25 mg tablet 25 mg PO DAILY Qty: 30 0RF Rx Instructions: Must call to schedule a cardiology appointment for more refills - overdue pioglitazone 15 mg tablet 15 mg PO DAILY 30 Days Qty: 30 11RF metformin 1,000 mg Tablet 1,000 mg PO BID 0RF ferrous sulfate 325 mg (65 mg iron) tablet 325 mg PO BID Qty: 60 0RF clopidogrel [Plavix] 75 mg tablet 75 mg PO DAILY Qty: 30 5RF amlodipine 10 mg Tablet 10 mg PO BEDTIME 0RF docusate sodium 100 mg Capsule 100 mg PO BID 0RF hydralazine 50 mg Tablet 50 mg PO TID 0RF pantoprazole [Protonix] 40 mg tablet,delayed release (DR/EC) 40 mg PO BID@0630,1630 0RF lidocaine [Lidoderm] 5 % Adhesive Patch,Medicated 1 patch TOPICAL DAILY 0RF fluticasone propionate 50 mcg/actuation [place],Suspension 2 spray INTRANASAL DAILY 0RF acetaminophen [Arthritis Pain Relief (acetam)] 650 mg Tablet Extended Release 650 mg PO Q8H PRN (Reason: Pain (Scale Score 1-3)) 0RF Flovent HFA 110 mcg/actuation Hfa Aerosol Inhaler 2 puff INHALATION BID 0RF albuterol sulfate 2.5 mg /3 mL (0.083 %) Solution For Nebulization 2.5 mg inhalation Q4H PRN (Reason: shortness of breath/wheeze) Qty: 100 0RF tramadol 50 mg tablet 50 mg PO BID PRN (Reason: pain) Qty: 7 0RF amitriptyline 50 mg tablet 1 tab PO BEDTIME 0RF oxycodone-acetaminophen 7.5-325 mg tablet 1 tab PO Q6H PRN (Reason: severe pain) 0RF Trulicity 0.75 mg/0.5 mL pen injector 0.75 mg subcut QWEEK 30 Days Qty: 2.5 11RF carvedilol [Coreg] 25 mg tablet 25 mg PO BID 0RF Rx Instructions: must administer with a meal/food multivitamin Tablet 1 tab PO DAILY 0RF lisinopril 40 mg tablet 40 mg PO DAILY 0RF gabapentin 800 mg tablet 800 mg PO TID 0RF aspirin [Adult Low Dose Aspirin] 81 mg tablet,delayed release (DR/EC) 81 mg PO DAILY 0RF escitalopram oxalate [Lexapro] 20 mg tablet 20 mg PO DAILY 0RF mirtazapine 45 mg tablet 45 mg PO BEDTIME 0RF atorvastatin [Lipitor] 80 mg tablet 80 mg PO BEDTIME 0RF Tresiba FlexTouch U-100 100 unit/mL (3 mL) insulin pen 10 unit subcut DAILY 0RF (DME) FreeStyle Lite Strips Strip See Rx Instructions ea Not Applicable QID Qty: 10 0RF Rx Instructions: As directed clotrimazole 1 % cream 1 appl topical BID 0RF Discontinued cephalexin 250 mg capsule 250 mg PO BID Qty: 14 0RF doxycycline hyclate 100 mg capsule 100 mg PO BID Qty: 14 0RF Discharge Orders: Discharge Order (Routine); Ordered 05/09/21 Ordered By: Durga Sosa Diet: advance to usual diet Activity on Discharge: As tolerated Stand Alone Forms: Patient Portal Discharge page Care Plan Goals: Stop doxycycline and Keflex; complete course of Augmentin Health Concerns: Follow-up with PCP as scheduled Plan of Treatment: Continue diabetic meds as previous Assessment: See discharge summary
--- NOTE | 2021-05-09 10:20 | P.CONGS_ITS ---
History of Present Illness Consult details Consult date: 05/09/21 Narrative: 60-year-old female patient presenting with a nonhealing right lower extremity wound. Patient has a past history of diabetes, hyperlipidemia, osteomyelitis, CAD, s/p CABG, and and hypertension and was admitted to the hospitalist service for management of a nonhealing wound of the right lower extremity. She was seen by her primary care physician and sent to the emergency department for additional evaluation. She reports that the wound began after an apparent bee sting or insect bite. She denies any bleeding or discharge from the wound. She denies fever, chills, nausea, vomiting, or other systemic symptoms. Review of Systems Review of Systems: Yes all other systems are reviewed and are negative Integumentary/Breasts: Skin/Breast: Reports as per [facility] Past Medical History Medical History Arthritis Asthma CAD (coronary artery disease) Cyst (solitary) of breast Diabetes H. pylori infection HLD (hyperlipidemia) HTN (hypertension) HTN (hypertension) Kidney calculi T2DM (type 2 diabetes mellitus) Vitamin D deficiency Family History Family History Mother Diabetes Liver cancer Surgical History Surgical History History of breast surgery History of cardiac cath History of coronary artery bypass graft History of esophagogastroduodenoscopy (EGD) Hx of colonoscopy Social History Social History Household Members: Children and Friend(s) Housing: Apartment Do you presently have visiting nurse or other home services: No Alcohol intake: never Patient Tobacco Use Status: Current everyday Tobacco user Tobacco use type: Cigarette Cigarettes Per Day: 2 Years Smoked: 40 +/- e-Cigarette/Vaping Use: Never Used Second Hand Smoke Exposure: No service: No Current occupational status: unemployed and disabled Meds Allergies Allergy/AdvReac Type Severity Reaction Status Date / Time latex [LATEX] Allergy Unknown RASH Verified 05/07/21 17:17 naproxen [From NAPROSYN] Allergy Unknown TACHYCARDIA Verified 05/07/21 17:17 Active Medications: Current Medications Acetaminophen (Acetaminophen 325 Mg Tablet) 650 mg PO Q6H PRN PRN Reason: Pain, Mild (Pain Scale 1-3) Last Admin: 05/08/21 04:31 Dose: 650 mg Documented by: Albuterol Sulfate (Albuterol Sulfate (0.083%) 2.5 Mg/3 Ml Vial.Neb) 2.5 mg INHALE Q4H PRN PRN Reason: shortness of breath/wheeze Amitriptyline HCl (Amitriptyline Hcl 50 Mg Tablet) 50 mg PO BEDTIME [facility] Last Admin: 05/08/21 20:53 Dose: 50 mg Documented by: Amlodipine Besylate (Amlodipine Besylate 10 Mg Tablet) 10 mg PO BEDTIME [facility]; Protocol Last Admin: 05/08/21 20:53 Dose: 10 mg Documented by: Aspirin (Aspirin Enteric Coated 81 Mg Tablet.) 81 mg PO DAILY [facility] Last Admin: 05/09/21 08:36 Dose: 81 mg Documented by: Atorvastatin Calcium (Atorvastatin Calcium 80 Mg Tablet) 80 mg PO BEDTIME [facility] Last Admin: 05/08/21 20:54 Dose: 80 mg Documented by: Carvedilol (Carvedilol 25 Mg Tablet) 25 mg PO BID [facility]; Protocol Last Admin: 05/09/21 08:36 Dose: 25 mg Documented by: Clopidogrel Bisulfate (Clopidogrel Bisulfate 75 Mg Tablet) 75 mg PO DAILY [facility] Last Admin: 05/09/21 08:37 Dose: 75 mg Documented by: Collagenase (Collagenase Clostridium Hist. 30 Gm Tube) 1 appl TOPICAL DAILY [facility]; Protocol Last Admin: 05/09/21 09:25 Dose: 1 appl Documented by: Dextrose (Dextrose 50 % 25 Gm/50 Ml Vial) 25 gm IVPUSH Q15M PRN; Protocol PRN Reason: per Hypoglycemia Standing Ord. Docusate Sodium (Docusate Sodium 100 Mg Capsule) 100 mg PO DAILY PRN PRN Reason: Constipation Docusate Sodium (Docusate Sodium 100 Mg Capsule) 100 mg PO BID [facility] Last Admin: 05/09/21 08:36 Dose: 100 mg Documented by: Enoxaparin Sodium (Enoxaparin Sodium 40 Mg/0.4 Ml Syringe) 40 mg SUBCUT Q24H JORY Last Admin: 05/09/21 08:39 Dose: 40 mg Documented by: Escitalopram Oxalate (Escitalopram Oxalate 20 Mg Tablet) 20 mg PO DAILY [facility] Last Admin: 05/09/21 08:37 Dose: 20 mg Documented by: Ferrous Sulfate (Ferrous Sulfate 324 Mg Tablet.Dr) 324 mg PO BID [facility] Last Admin: 05/09/21 08:37 Dose: 324 mg Documented by: Fluticasone Propionate (Fluticasone Propionate 100 Mcg Blst.W.Dev) 2 puff INHALE RBID [facility] Last Admin: 05/09/21 07:33 Dose: Not Given Documented by: Fluticasone Propionate (Fluticasone Propionate Nasal 16 Gm [place]) 2 spray NOSTRIL-B DAILY [facility] Last Admin: 05/09/21 09:25 Dose: 2 spray Documented by: Gabapentin (Gabapentin 400 Mg Capsule) 800 mg PO TID [facility] Last Admin: 05/09/21 08:36 Dose: 800 mg Documented by: Glucose (Glucose Gel 15 Gm Gel..Gram.) 15 gm PO Q15M PRN; Protocol PRN Reason: per Hypoglycemia Standing Ord. Hydralazine HCl (Hydralazine Hcl 50 Mg Tablet) 50 mg PO TID [facility]; Protocol Last Admin: 05/09/21 08:36 Dose: 50 mg Documented by: Hydrochlorothiazide (Hydrochlorothiazide 25 Mg Tablet) 25 mg PO DAILY [facility]; Protocol Last Admin: 05/09/21 08:37 Dose: 25 mg Documented by: Piperacillin Sod/Tazobactam (Sod 4.5 gm/ Sodium Chloride) 100 mls @ 200 mls/hr IV Q6H [facility] Last Infusion: 05/09/21 09:21 Dose: Infused Documented by: Vancomycin HCl 1,250 mg/ (Sodium Chloride) 250 mls @ 166.667 mls/hr IV Q24H [facility] Insulin Glargine (Insulin Glargine,Hum.Rec.Anlog 100 Unit/Ml 10 Ml Vial) 7 unit SUBCUT DAILY [facility] Last Admin: 05/09/21 09:25 Dose: 7 unit Documented by: Insulin Human Lispro (Insulin Lispro 100 Unit/Ml 3 Ml Vial) 0 unit SUBCUT QIDACHS [facility]; Protocol Last Admin: 05/09/21 08:15 Dose: Not Given Documented by: Lidocaine (Lidocaine 4 % Patch Adh..Patch) 1 patch TRANSDERMA DAILY [facility] Last Admin: 05/09/21 08:40 Dose: Not Given Documented by: Lisinopril (Lisinopril 40 Mg Tablet) 40 mg PO DAILY [facility]; Protocol Last Admin: 05/09/21 08:36 Dose: 40 mg Documented by: Mirtazapine (Mirtazapine 15 Mg Tablet) 45 mg PO BEDTIME [facility] Last Admin: 05/08/21 20:53 Dose: 45 mg Documented by: Multivitamins/Vitamin C (Multivitamin Tablet) 1 tab PO DAILY [facility] Last Admin: 05/09/21 08:36 Dose: 1 tab Documented by: Omeprazole (Omeprazole 20 Mg Capsule.Dr) 20 mg PO BID@0630,1630 [facility] Last Admin: 05/09/21 06:23 Dose: 20 mg Documented by: Ondansetron HCl (Ondansetron Hcl 4 Mg/2 Ml Vial) 4 mg IVPUSH Q8H PRN PRN Reason: Nausea and Vomiting Last Admin: 05/08/21 09:22 Dose: 4 mg Documented by: Oxycodone HCl (Oxycodone Hcl Immed Release 5 Mg Tablet) 10 mg PO Q4H PRN PRN Reason: Pain, Severe (Pain Scale 7-10) Pharmacy Consult (Consult Rx Vancomycin Dosing) 1 each MISCELLANE DAILY PRN PRN Reason: Consult order Sodium Chloride (0.9 % Sodium Chloride Flush 3 Ml Syringe) [facility] Admin: 05/09/21 08:37 Dose: 3 ml Documented by: Tramadol HCl (Tramadol Hcl 50 Mg Tablet) 50 mg PO BID PRN PRN Reason: Pain, Moderate (Pain Scale 4-6 Home Medications Medication Instructions Recorded Confirmed Last Taken Type metformin 1,000 mg tablet 1,000 mg PO BID 12/22/19 05/07/21 01/15/21 History aspirin 81 mg tablet,delayed 81 mg PO DAILY 01/02/20 05/07/21 01/15/21 History release (Adult Low Dose Aspirin) atorvastatin 80 mg tablet (Lipitor) 80 mg PO BEDTIME 01/02/20 05/07/21 01/15/21 History carvedilol 25 mg tablet (Coreg) 25 mg PO BID 01/02/20 05/07/21 01/15/21 History escitalopram oxalate 20 mg tablet 20 mg PO DAILY 01/02/20 05/07/21 01/15/21 History (Lexapro) gabapentin 800 mg tablet 800 mg PO TID 01/02/20 05/07/21 01/15/21 History insulin degludec 100 unit/mL (3 10 unit SUBCUT DAILY 01/02/20 05/07/21 01/15/21 History mL) subcutaneous pen (Tresiba FlexTouch U-100 insulin) lisinopril 40 mg tablet 40 mg PO DAILY 01/02/20 05/07/21 01/15/21 History mirtazapine 45 mg tablet 45 mg PO BEDTIME 01/02/20 05/07/21 05/08/20 08:00 History multivitamin 1 tab PO DAILY 01/02/20 05/07/21 01/15/21 History acetaminophen 650 mg 650 mg PO Q8H PRN 01/16/21 05/07/21 Unknown History tablet,extended release (Arthritis Pain Relief (acetaminophen) ER) amlodipine 10 mg tablet 10 mg PO BEDTIME 01/16/21 05/07/21 Unknown History docusate sodium 100 mg capsule 100 mg PO BID 01/16/21 05/07/21 Unknown History fluticasone propionate 110 2 puff INHALATION BID 01/16/21 05/07/21 Unknown History mcg/actuation HFA aerosol inhaler (Flovent HFA) fluticasone propionate 50 2 spray INTRANASAL DAILY 01/16/21 05/07/21 Unknown History mcg/actuation nasal spray,suspension hydralazine 50 mg tablet 50 mg PO TID 01/16/21 05/07/21 Unknown History lidocaine 5 % topical patch 1 patch TOPICAL DAILY 01/16/21 05/07/21 Unknown History (Lidoderm) pantoprazole 40 mg tablet,delayed 40 mg PO BID@0630,1630 01/16/21 05/07/21 Unknown History release (Protonix) blood sugar diagnostic (FreeStyle #10 ea 03/30/21 Unknown History Lite Strips) clotrimazole 1 % topical cream 1 appl TOPICAL BID 03/30/21 05/07/21 Unknown History amitriptyline 50 mg tablet 1 tab PO BEDTIME 05/07/21 05/07/21 Unknown History oxycodone-acetaminophen 7.5 mg-325 1 tab PO Q6H PRN 05/07/21 05/07/21 Unknown History mg tablet Physical Exam Vital Signs: Vital Signs: Last Vital Signs Temp 98.1 F 05/09/21 07:36 Pulse 64 05/09/21 07:36 Resp 18 05/09/21 07:36 BP 179/69 H 05/09/21 07:36 Pulse Ox 95 05/09/21 07:36 BMI result Body Mass Index 0.3 Const: General: healthy appearing and no acute distress Nutritional Appearance: well nourished Orientation/consciousness: patient oriented x3 Limitations: no limitations HEENT: Head: Yes normocephalic and Yes atraumatic Ears: hearing grossly normal bilaterally Resp: Other: Breathing comfortably on room air, no respiratory distress GI: Inspection: Yes normal to inspection Skin: Other: Warm, dry, normal color, no rashes Neuro: General: patient oriented x3 Extrem: Other: Right lower extremity at lateral calf with a circular lesion with a central punctum as noted below. Wound has the appearance of an insect bite perhaps spider or bee sting. No surrounding erythema or underlying abscess noted. Overlying skin with a dry eschar. No other wounds noted. Ankle/foot/toe images: 1. Site of insect bite right calf, approximately 1.5 cm in diameter. No surrounding erythema, no fluctuance. Central punctum noted suggestive of a bite [place]. Results Labs Result diagrams: 05/08/21 06:01 05/09/21 07:30 Labs: Abnormal lab results 05/07/21 05/08/21 05/08/21 Range/Units 17:25 12:55 20:55 ESR 23 H (0-20) MM/HR POC Glucose 185 H 345 H (60-115) mg/dL BMP 05/09/21 07:30 Sodium 142 Potassium 3.6 Chloride 106 Carbon Dioxide 28 BUN 13 Creatinine 0.91 Calcium 8.7 Urine 05/08/21 Range/Units 08:32 Urine Color YELLOW Urine Appearance CLEAR Urine pH 6.0 (5.0-8.0) Ur Specific [place] 1.015 (1.005-1.025) Urine Protein NEG (NEG-TRACE) MG/DL Urine Glucose (UA) 100 H (NEG) MG/DL All other labs normal. Assessment and Plan (1) Leg wound, right: Status: Acute Plan 60-year-old female patient presenting with a nonhealing wound of the right calf. Findings are suggestive of an insect bite perhaps a spider or bee. There is no underlying abscess appreciated. No surgical intervention required at this time. Recommend applying protective dressing. She may follow up in my office as an outpatient p.r.n. Procedures Date of Service Date of Service: 05/09/21
--- NOTE | 2021-05-09 10:59 | MHC.CM.PN ---
order for home, self care. CM acknowledge.
[2021-05-09 11:23] VITALS: BP 144/67; PULSE 63; RESP 18; TEMP 36.9; O2SAT 98
[2021-05-09 11:39] LABS: Glucose, Whole Blood 189 mg/dL (60-115)
== END 2021-05-09 13:00 | disposition home or self-care (01) | DRG 380 ==
LOC: HO.ED 21:29 → HO.EDOVER 23:05 → HO.S3 05-08 14:45
PROVIDERS: Nurse Practitioner Family; Admitting Provider Internal Medicine; Emergency Provider Emergency Medicine; PCP Family Medicine; Visit Provider Hospitalist
DX: E11.622 Type 2 diabetes mellitus with other skin ulcer (principal); L97.919 Non-pressure chronic ulcer of unspecified part of right lower leg with unspecified severity; L03.115 Cellulitis of right lower limb; I25.10 Atherosclerotic heart disease of native coronary artery without angina pectoris; E78.5 Hyperlipidemia, unspecified; I10 Essential (primary) hypertension; F17.210 Nicotine dependence, cigarettes, uncomplicated; Z71.6 Tobacco abuse counseling; Z20.822 Contact with and (suspected) exposure to COVID-19; Z95.5 Presence of coronary angioplasty implant and graft; Z91.040 Latex allergy status; Z88.6 Allergy status to analgesic agent; Z79.4 Long term (current) use of insulin; Z79.02 Long term (current) use of antithrombotics/antiplatelets; Z79.51 Long term (current) use of inhaled steroids; Z79.84 Long term (current) use of oral hypoglycemic drugs; Z79.899 Other long term (current) drug therapy
CPT/HCPCS: 36415; 73590; 73720; 80048; 80076; 80202; 81003; 82947; 83605; 83690; 83735; 84484; 85025; 85610; 85652; 85730; 86140; 87040; 87635; 93005; 96365; 96367; 96375; 99218; 99285; A9585; J0696; J1335; J1650; J2405; J2543; J3370

== ENCOUNTER → 2021-05-11 12:46 | Outpatient (BNVA) | payer MEDICAID, SELFPAY | PROVIDERS: Visit Provider Surgery Vascular Surgery | DX: I73.9 Peripheral vascular disease, unspecified (principal) | CPT/HCPCS: 99212 ==

== ENCOUNTER 2021-05-17 09:26 | Day surgery (SDC) | payer MEDICAID, SELFPAY ==
[2021-05-17] VITALS (7 sets, daily range): BP systolic 139–178; BP diastolic 57–73; PULSE 70–77; RESP 18; TEMP 36.7; O2SAT 98–99; BMI 28.9
[2021-05-17 09:53] LABS: MANUAL DIFF FLAG NO
[2021-05-17 10:00] LABS: Basophils Absolute Auto 0.1 X10*3/uL (0.0-0.2); Basophils Percent Auto 0.7 % (0-2); Eosinophils Absolute Auto 0.4 X10*3/uL (0.0-0.4); Eosinophils Percent Auto 4.9 % (0-4); Hematocrit 35.1 % (37.0-47.0); Hemoglobin 11.3 g/dl (12.0-16.0); Imm Gran Abs Auto 0.02 X10*3/uL (0.00-0.03); Imm Gran Pct Auto 0.3 % (0.0-0.4); Lymphocytes Absolute Auto 1.8 X10*3/uL (1.2-4.9); Lymphocytes Percent Auto 25.1 % (20-40); Mean Corpuscular HGB Conc 32.2 g/dl (31.0-35.0); Mean Corpuscular Hemoglobin 28.9 pg (27.0-33.0); Mean Corpuscular Volume 89.8 fL (80.0-98.0); Mean Platelet Volume 9.1 fL (9.4-12.3); Monocytes Absolute Auto 0.5 X10*3/uL (0.1-1.2); Monocytes Percent Auto 6.6 % (2-11); Neutrophils Absolute Auto 4.4 x10*3/uL (2.0-8.3); Neutrophils Percent Auto 62.4 % (45-73); Platelet Count 299 X10*3/uL (160-400); Red Blood Count 3.91 X10*6/uL (4.20-5.50); Red Cell Distribution Width 13.8 % (11.0-16.0); White Blood Count 7.1 X10*3/uL (4.8-10.8)
[2021-05-17 10:10] LABS: Blood Urea Nitrogen 12 mg/dL (9-16); Creatinine Clr Calc Pharmacy 66.4; Estimated Glomerular Filt Rate > 60
[2021-05-17 10:17] LABS: Glucose, Whole Blood 244 mg/dL (60-115)
--- NOTE | 2021-05-17 12:59 | W.PM.OPN ---
Operative Note Operative Note Date of Service: 05/17/21 Narrative: Angiogram report from [facility] Preoperative diagnosis: Atherosclerosis of right lower extremity with activity limiting claudication Postoperative diagnosis: Same Procedure: 1. Ultrasound-guided right common femoral access 2. Aortogram with right lower extremity runoff 3. Stent of right common iliac Surgeon:Caleb Aragon M.D., FACS, RPVI Supervisor [employer] Education:None Anesthesia: Local with moderate conscious sedation. Total intraservice moderate sedation time was 54 minutes. I monitored the patient's level of consciousness and physiologic status continuously throughout the procedure. Specimens:none Drains:none Estimated blood loss: Less than 10 ml Implant: Vergas VBX 7 x 19 Indications: 60-year-old smoker with a history of peripheral vascular disease and diabetes presents for activity limiting claudication of the right lower extremity. Of note she has a prior left-sided fem-pop bypass. The patient has signed the informed consent after reviewing risks, complications, benefits, and alternatives previously discussed with the patient. The patient was given the opportunity to ask any additional questions or voice any concerns. All questions were answered to the patient's satisfaction. Procedure in detail: Patient was brought to the angiography suite prior to which a time-out was called for patient identification and site verification. Bilateral groins were prepped and draped in the standard surgical fashion. Under ultrasound guidance right common femoral was punctured with micro puncture needle and wire. Subsequently a precision 5 [place] sheath was then placed. Bentson wire was advanced to the level of the aorta. 5 [place] Flush catheter was brought up and parked at the level of the renal arteries. Aortogram was then undertaken. Catheter was brought down to the level of the iliac bifurcation. Iliacs were subsequently imaged. Catheter was then brought in the aorta and aortogram was undertaken. Right lower extremity runoff was then undertaken through the sheath. At this juncture we noted there was stenosis and calcifications in noted in the distal common iliac. The aortic stenosis that was noted on the CT angiogram did not appear significant in terms of flow. We then turned our attention to this right iliac stenosis. At this time 3000 units of systemic heparin was administered. We upsized to a 6 [place] sheath. We plasty this area with a 6 x 30 balloon. We then upsized to a 7 [place] sheath. At the distal common iliac just above the hypogastric a Vergas VBX 7 x 19 balloon expandable covered stent was then placed. Once this was accomplished completion angiogram demonstrated excellent result StarClose closure device was then deployed. Patient tolerated the procedure well returned to recovery with stable vitals. Interpretation of films: 1. Ultrasound demonstrates appropriate femoral puncture. Image of which was saved. 2. Aortogram demonstrates appropriate caliber aorta. Minimal disease. Appropriate take-off of the renals. Small in caliber 3. Iliac images demonstrate no significant disease although small in caliber. Disease in the distal right common iliac 4. Right Leg Common femoral artery: No significant disease Profundus Femoris: No significant disease Superficial femoral artery: Occluded with reconstitution at the above knee popliteal Popliteal artery (p1,p2,p3): P1 was stenotic P2 did seem patent P3 was within normal limits Anterior tibial artery: Patent Peroneal artery: Patent but diminutive Posterior tibial artery: Patent Dorsalis pedis/plantar arch: Incomplete Conclusion: 1. Successful plasty and stent of right common iliac artery. Patient will require femoral to above knee popliteal bypass if clinically indicated. 2. Anticoagulation status: Continue on aspirin and Plavix which she already is on for a minimum of 6 months This note is constructed using voice recognition software. While every effort has been made to ensure accuracy, market development director errors may have been included. Thank you for allowing me to participate in the care of your patient. Yours sincerely, Caleb Aragon MD, FACS, R.P.V.I.
[2021-05-17] MEDS: Acetaminophen 325 MG TABLET 650 MG PO (13:14)
[2021-05-17] MEDS: oxyCODONE HCl Immed Release 5 MG TABLET PO (13:15)
== END 2021-05-17 15:28 | disposition home or self-care (01) ==
PROVIDERS: PCP Family Medicine; Visit Provider Surgery Vascular Surgery
DX: E11.51 Type 2 diabetes mellitus with diabetic peripheral angiopathy without gangrene (principal); L97.219 Non-pressure chronic ulcer of right calf with unspecified severity; I70.232 Atherosclerosis of native arteries of right leg with ulceration of calf; Z79.4 Long term (current) use of insulin; Z79.02 Long term (current) use of antithrombotics/antiplatelets; Z79.82 Long term (current) use of aspirin; F17.210 Nicotine dependence, cigarettes, uncomplicated; Z91.040 Latex allergy status; Z88.8 Allergy status to other drugs, medicaments and biological substances
CPT/HCPCS: 36415; 37221; 76937; 82565; 82947; 84520; 85025; 99152; 99153; C1760; C1769; C1874; C1887; C1894; J2250; J3010; Q9967

== ENCOUNTER → 2021-06-01 15:27 | Outpatient (BNVA) | payer MEDICAID, SELFPAY | PROVIDERS: PCP Family Medicine; Visit Provider Surgery Vascular Surgery | DX: Z48.812 Encounter for surgical aftercare following surgery on the circulatory system (principal); I73.9 Peripheral vascular disease, unspecified; Z95.818 Presence of other cardiac implants and grafts | CPT/HCPCS: 99212 ==

== ENCOUNTER 2021-06-18 01:37 | Emergency (ER) | payer MEDICAID, SELFPAY ==
[2021-06-18 01:40] VITALS: BP 182/76; PULSE 111; PULSE 90; RESP 16; TEMP 36.7; O2SAT 95; O2SAT 98; BMI 28.3
--- NOTE | 2021-06-18 02:16 | ED_ITS ---
HPI - General Adult General Chief complaint: Abdominal Pain Stated complaint: lower abd pain/headache Time Seen by Provider: 06/18/21 01:46 Source: patient Mode of arrival: EMS Limitations: no limitations History of Present Illness HPI narrative: Patient history of anxiety peripheral vascular disease hypertension diabetes came here for headache increased anxiety and chronic leg pain initially when she called she said she had abdominal pain but after coming to the ER says it was headache and leg right leg pain and elevated blood pressure says it was in 240 range but after arrival in the ER was 172/84 patient states that she took her medications and she does get high blood pressure when she gets anxiety patient does have chronic right leg pain with no swelling or open wound or change in color. No nausea no vomiting no diarrhea Related Data Home Medications Medication Instructions Recorded Confirmed metformin 1,000 mg tablet 1,000 mg PO BID 12/22/19 05/07/21 aspirin 81 mg tablet,delayed 81 mg PO DAILY 01/02/20 05/07/21 release (Adult Low Dose Aspirin) atorvastatin 80 mg tablet (Lipitor) 80 mg PO BEDTIME 01/02/20 05/07/21 carvedilol 25 mg tablet (Coreg) 25 mg PO BID 01/02/20 05/07/21 escitalopram oxalate 20 mg tablet 20 mg PO DAILY 01/02/20 05/07/21 (Lexapro) gabapentin 800 mg tablet 800 mg PO TID 01/02/20 05/07/21 insulin degludec 100 unit/mL (3 10 unit SUBCUT DAILY 01/02/20 05/07/21 mL) subcutaneous pen (Tresiba FlexTouch U-100 insulin) lisinopril 40 mg tablet 40 mg PO DAILY 01/02/20 05/07/21 mirtazapine 45 mg tablet 45 mg PO BEDTIME 01/02/20 05/07/21 multivitamin 1 tab PO DAILY 01/02/20 05/07/21 acetaminophen 650 mg 650 mg PO Q8H PRN 01/16/21 05/07/21 tablet,extended release (Arthritis Pain Relief (acetaminophen) ER) amlodipine 10 mg tablet 10 mg PO BEDTIME 01/16/21 05/07/21 docusate sodium 100 mg capsule 100 mg PO BID 01/16/21 05/07/21 fluticasone propionate 110 2 puff INHALATION BID 01/16/21 05/07/21 mcg/actuation HFA aerosol inhaler (Flovent HFA) fluticasone propionate 50 2 spray INTRANASAL DAILY 01/16/21 05/07/21 mcg/actuation nasal spray,suspension hydralazine 50 mg tablet 50 mg PO TID 01/16/21 05/07/21 lidocaine 5 % topical patch 1 patch TOPICAL DAILY 01/16/21 05/07/21 (Lidoderm) pantoprazole 40 mg tablet,delayed 40 mg PO BID@0630,1630 01/16/21 05/07/21 release (Protonix) blood sugar diagnostic (FreeStyle #10 ea 03/30/21 Lite Strips) clotrimazole 1 % topical cream 1 appl TOPICAL BID 03/30/21 05/07/21 amitriptyline 50 mg tablet 1 tab PO BEDTIME 05/07/21 05/07/21 oxycodone-acetaminophen 7.5 mg-325 1 tab PO Q6H PRN 05/07/21 05/07/21 mg tablet Previous Rx's Medication Instructions Recorded ferrous sulfate 325 mg (65 mg 325 mg PO BID #60 tab 05/24/20 iron) tablet dulaglutide 0.75 mg/0.5 mL 0.75 mg (0.5 mL) SUBCUT QWEEK 30 06/25/20 subcutaneous pen injector Days #2.5 ml (Trulicity) hydrochlorothiazide 25 mg tablet 25 mg PO DAILY #30 tab 08/13/20 clopidogrel 75 mg tablet (Plavix) 75 mg PO DAILY #30 tab 12/02/20 pioglitazone 15 mg tablet 15 mg PO DAILY 30 Days #30 tab 12/02/20 albuterol sulfate 2.5 mg (3 mL) INHALATION Q4H PRN 01/19/21 #100 ml tramadol 50 mg tablet 50 mg PO BID PRN #7 tab 05/06/21 amoxicillin 875 mg-potassium 1 tab PO BID #20 tab 05/09/21 clavulanate 125 mg tablet Allergies Allergy/AdvReac Type Severity Reaction Status Date / Time latex [LATEX] Allergy Unknown RASH Verified 06/01/21 15:33 naproxen [From NAPROSYN] Allergy Unknown TACHYCARDIA Verified 06/01/21 15:33 Review of Systems Review of Systems: Yes all other systems are reviewed and are negative PMFSH Past Medical History Medical History Arthritis Asthma CAD (coronary artery disease) Cyst (solitary) of breast Diabetes H. pylori infection HLD (hyperlipidemia) HTN (hypertension) HTN (hypertension) Kidney calculi T2DM (type 2 diabetes mellitus) Vitamin D deficiency Surgical History History of breast surgery History of cardiac cath History of coronary artery bypass graft History of esophagogastroduodenoscopy (EGD) Hx of colonoscopy Family History Family History Mother Diabetes Liver cancer Social History Social History Household Members: Children and Friend(s) Housing: Apartment Do you presently have visiting nurse or other home services: No Alcohol intake: never Patient Tobacco Use Status: Never used Tobacco Tobacco use type: Cigarette Cigarettes Per Day: 2 Years Smoked: 40 +/- e-Cigarette/Vaping Use: Never Used Second Hand Smoke Exposure: No Use of substances other than those prescribed or required for medical reasons: No Advance Directives: No Patient : No service: No Current occupational status: unemployed and disabled Physical Exam ED Vital Signs: Vital Signs - 24 hr 06/18/21 01:40 06/18/21 02:19 Temperature 98.1 F Pulse Rate 90 84 Respiratory Rate 16 15 Blood Pressure 172/84 H Pulse Oximetry 95 97 BMI result Body Mass Index 28.3 Appearance: Alert. Oriented X3. No acute distress. Eyes: PERRLA, No Nystagmus ENT: Pharynx normal. Oral Mucosa moist Neck: Normal inspection. Neck supple. CVS: Normal heart rate and rhythm. Pulses normal. Respiratory: No respiratory distress. Equal air entry bilateral, no wheezing/rales/rhonchi Abdomen: Soft and nontender. Bowel sounds are present, no mass palpable, no CVA tenderness Skin: Skin warm and dry. Normal skin color. Normal skin turgor. Extremities: No lower extremity edema. No calf tenderness peripheries warm nor mal color normal capillary refill Neuro: Oriented X 3. No motor deficit. No sensory deficit.No cerebellar signs , cranial nerves II-XII intact Medical Decision Making MDM Narrative Medical decision making narrative: Patient with chronic pain syndrome and anxiety blood pressure normal on arrival discharge patient home advised to continue her oxycodone and blood pressure medication Discharge Plan Discharge Clinical Impression: Anxiety disorder Patient Disposition: Home, Self-Care Instructions: Hypertension (ED), Anxiety (ED) Additional Instructions: Take your pain medication as prescribed by PCP Take her medication for anxiety and blood pressure and follow with PCP Prescriptions: No Action hydrochlorothiazide 25 mg tablet 25 mg PO DAILY Qty: 30 0RF Rx Instructions: Must call to schedule a cardiology appointment for more refills - overdue pioglitazone 15 mg tablet 15 mg PO DAILY 30 Days Qty: 30 11RF metformin 1,000 mg Tablet 1,000 mg PO BID 0RF ferrous sulfate 325 mg (65 mg iron) tablet 325 mg PO BID Qty: 60 0RF clopidogrel [Plavix] 75 mg tablet 75 mg PO DAILY Qty: 30 5RF amlodipine 10 mg Tablet 10 mg PO BEDTIME 0RF docusate sodium 100 mg Capsule 100 mg PO BID 0RF hydralazine 50 mg Tablet 50 mg PO TID 0RF pantoprazole [Protonix] 40 mg tablet,delayed release (DR/EC) 40 mg PO BID@0630,1630 0RF lidocaine [Lidoderm] 5 % Adhesive Patch,Medicated 1 patch TOPICAL DAILY 0RF fluticasone propionate 50 mcg/actuation [place],Suspension 2 spray INTRANASAL DAILY 0RF acetaminophen [Arthritis Pain Relief (acetam)] 650 mg Tablet Extended Release 650 mg PO Q8H PRN (Reason: Pain (Scale Score 1-3)) 0RF Flovent HFA 110 mcg/actuation Hfa Aerosol Inhaler 2 puff INHALATION BID 0RF albuterol sulfate 2.5 mg /3 mL (0.083 %) Solution For Nebulization 2.5 mg inhalation Q4H PRN (Reason: shortness of breath/wheeze) Qty: 100 0RF tramadol 50 mg tablet 50 mg PO BID PRN (Reason: pain) Qty: 7 0RF amitriptyline 50 mg tablet 1 tab PO BEDTIME 0RF oxycodone-acetaminophen 7.5-325 mg tablet 1 tab PO Q6H PRN (Reason: severe pain) 0RF amoxicillin-pot clavulanate 875-125 mg tablet 1 tab PO BID Qty: 20 0RF Trulicity 0.75 mg/0.5 mL pen injector 0.75 mg subcut QWEEK 30 Days Qty: 2.5 11RF carvedilol [Coreg] 25 mg tablet 25 mg PO BID 0RF Rx Instructions: must administer with a meal/food multivitamin Tablet 1 tab PO DAILY 0RF lisinopril 40 mg tablet 40 mg PO DAILY 0RF gabapentin 800 mg tablet 800 mg PO TID 0RF aspirin [Adult Low Dose Aspirin] 81 mg tablet,delayed release (DR/EC) 81 mg PO DAILY 0RF escitalopram oxalate [Lexapro] 20 mg tablet 20 mg PO DAILY 0RF mirtazapine 45 mg tablet 45 mg PO BEDTIME 0RF atorvastatin [Lipitor] 80 mg tablet 80 mg PO BEDTIME 0RF Tresiba FlexTouch U-100 100 unit/mL (3 mL) insulin pen 10 unit subcut DAILY 0RF (DME) FreeStyle Lite Strips Strip See Rx Instructions ea Not Applicable QID Qty: 10 0RF Rx Instructions: As directed clotrimazole 1 % cream 1 appl topical BID 0RF
[2021-06-18 02:19] VITALS: BP 172/84; PULSE 84; RESP 15; O2SAT 97
[2021-06-18] MEDS: oxyCODONE HCl Immed Release 5 MG TABLET PO (02:27)
== END 2021-06-18 05:12 | disposition home or self-care (01) ==
PROVIDERS: Emergency Provider Internal Medicine
DX: F41.9 Anxiety disorder, unspecified (principal); I10 Essential (primary) hypertension; E11.9 Type 2 diabetes mellitus without complications; J45.909 Unspecified asthma, uncomplicated; G89.4 Chronic pain syndrome; Z79.891 Long term (current) use of opiate analgesic; Z79.899 Other long term (current) drug therapy
CPT/HCPCS: 99283; 99284

== ENCOUNTER 2021-07-11 23:57 | Emergency (ER) | payer MEDICAID, SELFPAY ==
[2021-07-12 00:04] VITALS: BP 160/70; BP 221/86; PULSE 113; RESP 24; TEMP 36.4; O2SAT 99; BMI 27.3
--- NOTE | 2021-07-12 00:30 | ED.ABDPAIN ---
HPI - Abdominal Pain General Chief Complaint: Abdominal Pain Stated Complaint: Constipation Time Seen by Provider: 07/12/21 00:08 History of Present Illness HPI narrative: Patient is a 60-year-old female with a history of peripheral vascular disease, coronary artery disease history of chronic pain on oxycodone presents today with having constipation for last 3 days. Positive passing gas positive diffuse bloating. No bowel movement. Patient is from home. No fevers or chills no cough no congestion or respiratory symptoms no nausea no vomiting no diaphoresis the pain is in the rectal area unable to defecate. Related Data Home Medications Medication Instructions Recorded Confirmed metformin 1,000 mg tablet 1,000 mg PO BID 12/22/19 05/07/21 aspirin 81 mg tablet,delayed 81 mg PO DAILY 01/02/20 05/07/21 release (Adult Low Dose Aspirin) atorvastatin 80 mg tablet (Lipitor) 80 mg PO BEDTIME 01/02/20 05/07/21 carvedilol 25 mg tablet (Coreg) 25 mg PO BID 01/02/20 05/07/21 escitalopram oxalate 20 mg tablet 20 mg PO DAILY 01/02/20 05/07/21 (Lexapro) gabapentin 800 mg tablet 800 mg PO TID 01/02/20 05/07/21 insulin degludec 100 unit/mL (3 10 unit SUBCUT DAILY 01/02/20 05/07/21 mL) subcutaneous pen (Tresiba FlexTouch U-100 insulin) lisinopril 40 mg tablet 40 mg PO DAILY 01/02/20 05/07/21 mirtazapine 45 mg tablet 45 mg PO BEDTIME 01/02/20 05/07/21 multivitamin 1 tab PO DAILY 01/02/20 05/07/21 acetaminophen 650 mg 650 mg PO Q8H PRN 01/16/21 05/07/21 tablet,extended release (Arthritis Pain Relief (acetaminophen) ER) amlodipine 10 mg tablet 10 mg PO BEDTIME 01/16/21 05/07/21 docusate sodium 100 mg capsule 100 mg PO BID 01/16/21 05/07/21 fluticasone propionate 110 2 puff INHALATION BID 01/16/21 05/07/21 mcg/actuation HFA aerosol inhaler (Flovent HFA) fluticasone propionate 50 2 spray INTRANASAL DAILY 01/16/21 05/07/21 mcg/actuation nasal spray,suspension hydralazine 50 mg tablet 50 mg PO TID 01/16/21 05/07/21 lidocaine 5 % topical patch 1 patch TOPICAL DAILY 01/16/21 05/07/21 (Lidoderm) pantoprazole 40 mg tablet,delayed 40 mg PO BID@0630,1630 01/16/21 05/07/21 release (Protonix) blood sugar diagnostic (FreeStyle #10 ea 03/30/21 Lite Strips) clotrimazole 1 % topical cream 1 appl TOPICAL BID 03/30/21 05/07/21 amitriptyline 50 mg tablet 1 tab PO BEDTIME 05/07/21 05/07/21 oxycodone-acetaminophen 7.5 mg-325 1 tab PO Q6H PRN 05/07/21 05/07/21 mg tablet Previous Rx's Medication Instructions Recorded ferrous sulfate 325 mg (65 mg 325 mg PO BID #60 tab 05/24/20 iron) tablet dulaglutide 0.75 mg/0.5 mL 0.75 mg (0.5 mL) SUBCUT QWEEK 30 06/25/20 subcutaneous pen injector Days #2.5 ml (Trulicity) hydrochlorothiazide 25 mg tablet 25 mg PO DAILY #30 tab 08/13/20 clopidogrel 75 mg tablet (Plavix) 75 mg PO DAILY #30 tab 12/02/20 pioglitazone 15 mg tablet 15 mg PO DAILY 30 Days #30 tab 12/02/20 albuterol sulfate 2.5 mg (3 mL) INHALATION Q4H PRN 01/19/21 #100 ml tramadol 50 mg tablet 50 mg PO BID PRN #7 tab 05/06/21 amoxicillin 875 mg-potassium 1 tab PO BID #20 tab 05/09/21 clavulanate 125 mg tablet polyethylene glycol 3350 17 17 g PO DAILY #238 g 07/12/21 gram/dose oral powder (Miralax) Allergies Allergy/AdvReac Type Severity Reaction Status Date / Time latex [LATEX] Allergy Unknown RASH Verified 07/12/21 00:03 naproxen [From NAPROSYN] Allergy Unknown TACHYCARDIA Verified 07/12/21 00:03 Review of Systems Review of Systems No chest pain or shortness breath no dizziness no nausea no vomiting Yes all other systems are reviewed and are negative [facility] Past Medical History Attestation statement: The following information was validated with the patient. Medical History Arthritis Asthma CAD (coronary artery disease) Cyst (solitary) of breast Diabetes H. pylori infection HLD (hyperlipidemia) HTN (hypertension) HTN (hypertension) Kidney calculi T2DM (type 2 diabetes mellitus) Vitamin D deficiency Surgical History History of breast surgery History of cardiac cath History of coronary artery bypass graft History of esophagogastroduodenoscopy (EGD) Hx of colonoscopy Family History Family History Mother Diabetes Liver cancer Social History Social History Household Members: Children and Friend(s) Housing: Apartment Do you presently have visiting nurse or other home services: No Alcohol intake: never Patient Tobacco Use Status: Never used Tobacco Tobacco use type: Cigarette Cigarettes Per Day: 2 Years Smoked: 40 +/- e-Cigarette/Vaping Use: Never Used Second Hand Smoke Exposure: No Advance Directives: No service: No Current occupational status: unemployed and disabled Physical Exam ED Vital Signs: Vital Signs - 24 hr 07/12/21 00:04 Temperature 97.5 F Pulse Rate 113 H Respiratory Rate 24 H Blood Pressure 221/86 H Pulse Oximetry 99 BMI result Body Mass Index 27.3 Appearance: Alert. Oriented X3. No acute distress. Eyes: Pupils equal, round and reactive to light. ENT: Pharynx normal. Neck: Normal inspection. Neck supple. No lymph nodes noted. No crepitus CVS: Normal heart rate and rhythm. Pulses normal. Normal S1 and S2 Respiratory: No respiratory distress. Breath sounds normal. No Wheezing. No rales Abdomen: Soft and nontender. No rigidity. No distention. good BS x4 Skin: Skin warm and dry. Normal skin color. Normal skin turgor. Rectal exam done with nurse Terri present. Large amount of stoo noted in the rectal vault. Extremities: No lower extremity edema. Neurovascular intact to all extremities. No Lacerations. No Rash Neuro: Oriented X 3. No motor deficit. No sensory deficit. Moving all extermities. No slurred speech Procedures Procedure Narrative Procedure Narrative: Patient presents today with constipation. Unable to defecate. With nursing present nurse Terri was present during the entire process a seizure. Patient was manually disimpacted. Large amount of stool resulted. Enema was given. Further large amount of stool is resulted. MDM - Abdominal Pain MDM Narrative Medical decision making narrative: After manual disimpaction patient's symptom improved. She had a 2nd bowel movement after Fleet enema. Had a 3rd bowel movement naturally. Symptom improved dramatically. Patient's electrolytes showed normal creatinine. Does have an elevated sugar will require close follow-up on an outpatient basis. Patient is in stable condition. Medical Records Attestation: I reviewed the patient's medical records. Lab Data Result diagrams: 07/12/21 00:39 07/12/21 00:39 Labs: Lab Results 07/12/21 07/12/21 Range/Units 00:39 00:39 WBC 9.9 (4.8-10.8) X10*3/uL RBC 4.14 L (4.20-5.50) X10*6/uL Hgb 12.0 (12.0-16.0) g/dl Hct 36.7 L (37.0-47.0) % MCV 88.6 (80.0-98.0) fL MCH 29.0 (27.0-33.0) pg MCHC 32.7 (31.0-35.0) g/dl RDW 13.5 (11.0-16.0) % Plt Count 270 (160-400) X10*3/uL MPV 9.4 (9.4-12.3) fL Immature Gran % (Auto) 0.4 (0.0-0.4) % Neut % (Auto) 76.4 H (45-73) % Lymph % (Auto) 15.7 L (20-40) % [place] % (Auto) 4.8 (2-11) % Eos % (Auto) 2.3 (0-4) % Baso % (Auto) 0.4 (0-2) % Lymph # (Auto) 1.6 (1.2-4.9) X10*3/uL [place] # (Auto) 0.5 (0.1-1.2) X10*3/uL Eos # (Auto) 0.2 (0.0-0.4) X10*3/uL Baso # (Auto) 0.0 (0.0-0.2) X10*3/uL Abs Immat Gran (auto) 0.04 H (0.00-0.03) X10*3/uL Absolute Neuts (auto) 7.6 (2.0-8.3) x10*3/uL Absolute Nucleated RBC 0.000 (0.0-0.012) X10*3/uL Nucleated RBC % (auto) 0.0 (0.0-0.2) /100WBC Sodium 137 (135-145) mmol/L Potassium 4.1 (3.3-5.1) mmol/L Chloride 103 (96-108) mmol/L Carbon Dioxide 22 (22-29) mmol/L Anion Gap 16 (12-20) BUN 11 (9-16) mg/dL Creatinine 0.89 (0.5-1.4) mg/dL Estim Creat Clear Calc 56.6 Estimated GFR > 60 Random Glucose 375 H* (60-115) mg/dL Calcium 9.2 (8.4-10.2) mg/dL Discharge Plan Discharge Clinical Impression: Constipation, Acute hyperglycemia Patient Disposition: Home, Self-Care Prescriptions: New polyethylene glycol 3350 [Miralax] 17 gram/dose powder 17 g PO DAILY Qty: 238 0RF No Action hydrochlorothiazide 25 mg tablet 25 mg PO DAILY Qty: 30 0RF Rx Instructions: Must call to schedule a cardiology appointment for more refills - overdue pioglitazone 15 mg tablet 15 mg PO DAILY 30 Days Qty: 30 11RF metformin 1,000 mg Tablet 1,000 mg PO BID 0RF ferrous sulfate 325 mg (65 mg iron) tablet 325 mg PO BID Qty: 60 0RF clopidogrel [Plavix] 75 mg tablet 75 mg PO DAILY Qty: 30 5RF amlodipine 10 mg Tablet 10 mg PO BEDTIME 0RF docusate sodium 100 mg Capsule 100 mg PO BID 0RF hydralazine 50 mg Tablet 50 mg PO TID 0RF pantoprazole [Protonix] 40 mg tablet,delayed release (DR/EC) 40 mg PO BID@0630,1630 0RF lidocaine [Lidoderm] 5 % Adhesive Patch,Medicated 1 patch TOPICAL DAILY 0RF fluticasone propionate 50 mcg/actuation [place],Suspension 2 spray INTRANASAL DAILY 0RF acetaminophen [Arthritis Pain Relief (acetam)] 650 mg Tablet Extended Release 650 mg PO Q8H PRN (Reason: Pain (Scale Score 1-3)) 0RF Flovent HFA 110 mcg/actuation Hfa Aerosol Inhaler 2 puff INHALATION BID 0RF albuterol sulfate 2.5 mg /3 mL (0.083 %) Solution For Nebulization 2.5 mg inhalation Q4H PRN (Reason: shortness of breath/wheeze) Qty: 100 0RF tramadol 50 mg tablet 50 mg PO BID PRN (Reason: pain) Qty: 7 0RF amitriptyline 50 mg tablet 1 tab PO BEDTIME 0RF oxycodone-acetaminophen 7.5-325 mg tablet 1 tab PO Q6H PRN (Reason: severe pain) 0RF amoxicillin-pot clavulanate 875-125 mg tablet 1 tab PO BID Qty: 20 0RF Trulicity 0.75 mg/0.5 mL pen injector 0.75 mg subcut QWEEK 30 Days Qty: 2.5 11RF carvedilol [Coreg] 25 mg tablet 25 mg PO BID 0RF Rx Instructions: must administer with a meal/food multivitamin Tablet 1 tab PO DAILY 0RF lisinopril 40 mg tablet 40 mg PO DAILY 0RF gabapentin 800 mg tablet 800 mg PO TID 0RF aspirin [Adult Low Dose Aspirin] 81 mg tablet,delayed release (DR/EC) 81 mg PO DAILY 0RF escitalopram oxalate [Lexapro] 20 mg tablet 20 mg PO DAILY 0RF mirtazapine 45 mg tablet 45 mg PO BEDTIME 0RF atorvastatin [Lipitor] 80 mg tablet 80 mg PO BEDTIME 0RF Tresiba FlexTouch U-100 100 unit/mL (3 mL) insulin pen 10 unit subcut DAILY 0RF (DME) FreeStyle Lite Strips Strip See Rx Instructions ea Not Applicable QID Qty: 10 0RF Rx Instructions: As directed clotrimazole 1 % cream 1 appl topical BID 0RF Referrals: Physician,Unknown J [Primary Care Provider] -
[2021-07-12 00:46] LABS: Basophils Percent Auto 0.4 % (0-2); Eosinophils Absolute Auto 0.2 X10*3/uL (0.0-0.4); Eosinophils Percent Auto 2.3 % (0-4); Hematocrit 36.7 % (37.0-47.0); Imm Gran Abs Auto 0.04 X10*3/uL (0.00-0.03); Imm Gran Pct Auto 0.4 % (0.0-0.4); Lymphocytes Absolute Auto 1.6 X10*3/uL (1.2-4.9); Lymphocytes Percent Auto 15.7 % (20-40); MANUAL DIFF FLAG NO; Mean Corpuscular HGB Conc 32.7 g/dl (31.0-35.0); Mean Corpuscular Volume 88.6 fL (80.0-98.0); Mean Platelet Volume 9.4 fL (9.4-12.3); Monocytes Absolute Auto 0.5 X10*3/uL (0.1-1.2); Monocytes Percent Auto 4.8 % (2-11); Neutrophils Absolute Auto 7.6 x10*3/uL (2.0-8.3); Neutrophils Percent Auto 76.4 % (45-73); Platelet Count 270 X10*3/uL (160-400); Red Blood Count 4.14 X10*6/uL (4.20-5.50); Red Cell Distribution Width 13.5 % (11.0-16.0); White Blood Count 9.9 X10*3/uL (4.8-10.8)
[2021-07-12] MEDS: Sodium Phosphate,Mono-Dibasic 133 ML ENEMA PR (01:00)
[2021-07-12 01:16] LABS: Anion Gap 16 (12-20); Blood Urea Nitrogen 11 mg/dL (9-16); Calcium 9.2 mg/dL (8.4-10.2); Carbon Dioxide 22 mmol/L (22-29); Chloride 103 mmol/L (96-108); Creatinine Clr Calc Pharmacy 56.6; Estimated Glomerular Filt Rate > 60; Glucose Random 375 mg/dL (60-115); Potassium 4.1 mmol/L (3.3-5.1); Sodium 137 mmol/L (135-145)
[2021-07-12 01:32] VITALS: BP 177/83; PULSE 87; RESP 18; O2SAT 98
== END 2021-07-12 01:34 | disposition home or self-care (01) ==
LOC: HO.ED 07-12 01:03
PROVIDERS: Emergency Provider Emergency Medicine Emergency Medical Services
DX: E11.65 Type 2 diabetes mellitus with hyperglycemia (principal); K59.00 Constipation, unspecified; F17.210 Nicotine dependence, cigarettes, uncomplicated; Z79.4 Long term (current) use of insulin; Z71.6 Tobacco abuse counseling; Z79.899 Other long term (current) drug therapy
CPT/HCPCS: 36415; 80048; 85025; 99283; 99284

== ENCOUNTER 2021-08-08 00:27 | Emergency (ER) | payer MEDICAID, SELFPAY ==
--- NOTE | ~2021-08-08 | CT_ITS ---
EXAMINATION: CT HEAD WITHOUT CONTRAST CLINICAL INFORMATION: Headache. COMPARISON: CT head 11/16/2018. TECHNIQUE: Contiguous axial imaging was performed from the skull base to vertex without intravenous administration of contrast. This CT examination was performed using dose optimization techniques as appropriate, variously including the following: *Automated exposure control *Adjustment of mA and/or kV according to patient size (this includes techniques or standardized protocols for targeted exams where dose is matched to indication/reason for exam; i.e. extremities or head) *Use of iterative reconstruction technique DLP: 573 mGy-cm FINDINGS: The ventricles and sulci are normal in size and configuration. No intracranial hemorrhage, tumors or definitive acute infarcts identified. No focal parenchymal lesions of the brain noted. No abnormal extra-axial fluid collections. Normal appearance of the orbits and globes. No significant opacification of the visualized paranasal sinuses, mastoid air cells and middle ear cavities. CT/CT head/brain wo con IMPRESSION: *No acute intracranial abnormalities.
[2021-08-08 00:33] VITALS: BP 189/85; PULSE 108; O2SAT 98
--- NOTE | 2021-08-08 00:40 | ECG_ITS ---
Test Reason : cp Blood Pressure : / mmHG Vent. Rate : 095 BPM Atrial Rate : 095 BPM P-R Int : 130 ms QRS Dur : 084 ms QT Int : 360 ms P-R-T Axes : 046 001 055 degrees QTc Int : 452 ms Normal sinus rhythm Nonspecific ST abnormality Abnormal ECG When compared with ECG of 07-MAY-2021 18:47, Vent. rate has increased BY 32 BPM Referred By: Jenifer Reed Electronically Signed By:JM DU
--- NOTE | 2021-08-08 00:42 | ED_ITS ---
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 She is compliant with her medications. She notes at night she takes gabapentin and garlic drops and this usually helps. But tonight she felt her BP go up. She has also had a dull occipital headache x 2 days atraumatic no fevers - had headache prior to her BP going up tonight. Took all of her BP medications tonight. MD elicited complaint: headache Pertinent past history: hypertension Onset (ago): day(s) (2) Onset description: gradually and while at rest Location: occipital Severity: moderate Quality & Timing: dull, constant and progressively worsening Exacerbating factors: movement of head/neck and noise Relieving factors: rest Context: occurred at rest Associated symptoms: other (leg cramps) Treatments prior to arrival: none Related Data Home Medications Medication Instructions Recorded Confirmed metformin 1,000 mg tablet 1,000 mg PO BID 12/22/19 05/07/21 aspirin 81 mg tablet,delayed 81 mg PO DAILY 01/02/20 05/07/21 release (Adult Low Dose Aspirin) atorvastatin 80 mg tablet (Lipitor) 80 mg PO BEDTIME 01/02/20 05/07/21 carvedilol 25 mg tablet (Coreg) 25 mg PO BID 01/02/20 05/07/21 escitalopram oxalate 20 mg tablet 20 mg PO DAILY 01/02/20 05/07/21 (Lexapro) gabapentin 800 mg tablet 800 mg PO TID 01/02/20 05/07/21 insulin degludec 100 unit/mL (3 10 unit subcut DAILY 01/02/20 05/07/21 mL) subcutaneous pen (Tresiba FlexTouch U-100 insulin) lisinopril 40 mg tablet 40 mg PO DAILY 01/02/20 05/07/21 mirtazapine 45 mg tablet 45 mg PO BEDTIME 01/02/20 05/07/21 multivitamin 1 tab PO DAILY 01/02/20 05/07/21 acetaminophen 650 mg 650 mg PO Q8H PRN Pain (Scale 01/16/21 05/07/21 tablet,extended release (Arthritis Score 1-3) Pain Relief (acetaminophen) ER) amlodipine 10 mg tablet 10 mg PO BEDTIME 01/16/21 05/07/21 docusate sodium 100 mg capsule 100 mg PO BID 01/16/21 05/07/21 fluticasone propionate 110 2 puff inhalation BID 01/16/21 05/07/21 mcg/actuation HFA aerosol inhaler (Flovent HFA) fluticasone propionate 50 2 spray intranasal DAILY 01/16/21 05/07/21 mcg/actuation nasal spray,suspension hydralazine 50 mg tablet 50 mg PO TID 01/16/21 05/07/21 lidocaine 5 % topical patch 1 patch topical DAILY 01/16/21 05/07/21 (Lidoderm) pantoprazole 40 mg tablet,delayed 40 mg PO BID@0630,1630 01/16/21 05/07/21 release (Protonix) blood sugar diagnostic (FreeStyle #10 ea 03/30/21 Lite Strips) clotrimazole 1 % topical cream 1 appl topical BID 03/30/21 05/07/21 amitriptyline 50 mg tablet 1 tab PO BEDTIME 05/07/21 05/07/21 oxycodone-acetaminophen 7.5 mg-325 1 tab PO Q6H PRN severe pain 05/07/21 05/07/21 mg tablet Previous Rx's Medication Instructions Recorded ferrous sulfate 325 mg (65 mg 325 mg PO BID #60 tabs 05/24/20 iron) tablet hydrochlorothiazide 25 mg tablet 25 mg PO DAILY #30 tabs 08/13/20 clopidogrel 75 mg tablet (Plavix) 75 mg PO DAILY #30 tabs 12/02/20 pioglitazone 15 mg tablet 15 mg PO DAILY 30 days #30 tabs 12/02/20 albuterol sulfate 2.5 mg (3 mL) inhalation Q4H PRN 01/19/21 shortness of breath/wheeze #100 mL tramadol 50 mg tablet 50 mg PO BID PRN pain #7 tabs 05/06/21 amoxicillin 875 mg-potassium 1 tab PO BID #20 tabs 05/09/21 clavulanate 125 mg tablet polyethylene glycol 3350 17 17 g PO DAILY #238 grams 07/12/21 gram/dose oral powder (Miralax) dulaglutide 0.75 mg/0.5 mL 0.75 mg (0.5 mL) subcut QWEEK 30 07/14/21 subcutaneous pen injector days #2.5 mL (Trulicity) lancets 33 gauge (TRUEplus Lancets) #100 ea 07/26/21 Allergies Allergy/AdvReac Type Severity Reaction Status Date / Time latex [LATEX] Allergy Unknown RASH Verified 07/12/21 00:03 naproxen [From NAPROSYN] Allergy Unknown TACHYCARDIA Verified 07/12/21 00:03 Review of Systems Review of Systems: Constitutional : No Fever, No Chills, No Fatigue ENT/Mouth : No sore throat, No Rhinorrhea Eyes: No Eye Pain, No Swelling, No Redness Cardiovascular : No Chest Pain, No SOB, No Dyspnea on Exertion Respiratory : No Cough, No Sputum Gastrointestinal : No Nausea, No Vomiting, No Diarrhea, No abdominal Pain Genitourinary : No Dysuria, No Urinary Frequency, No Hematuria, Musculoskeletal : No joint pain, pos Myalgias, No Joint Swelling Skin : No Skin Lesions, No rash Neuro : No Weakness, No Numbness, No Dizziness, positive Headache Psych : No Anxiety/Panic, No Depression Heme/Lymph: No Bruising, No Bleeding,No Lymphadenopathy Endocrine : No Polyuria, No Polydipsia All other systems reviewed and are negative PMFSH Past Medical History Attestation statement: The following information was validated with the patient. Medical History Arthritis Asthma Cyst (solitary) of breast Diabetes H. pylori infection HTN (hypertension) Kidney calculi Surgical History History of breast surgery History of cardiac cath History of coronary artery bypass graft History of esophagogastroduodenoscopy (EGD) Hx of colonoscopy Family History Family History Mother Diabetes Liver cancer Social History Social History Household Members: Children and Friend(s) Housing: Apartment Do you presently have visiting nurse or other home services: No Alcohol intake: never Patient Tobacco Use Status: Never used Tobacco Tobacco use type: Cigarette Cigarettes Per Day: 2 Years Smoked: 40 +/- e-Cigarette/Vaping Use: Never Used Second Hand Smoke Exposure: No Use of substances other than those prescribed or required for medical reasons: No Advance Directives: No service: No Current occupational status: unemployed and disabled Physical Exam Vital Signs: Vital Signs: Last Vital Signs Temp 98.1 F 08/08/21 00:56 Pulse 95 08/08/21 01:14 Resp 15 08/08/21 01:14 BP 215/92 H 08/08/21 01:14 Pulse Ox 98 08/08/21 01:14 O2 Del Method 08/08/21 01:14 BMI result Body Mass Index 28.9 Appearance: Alert. Oriented X3. No acute distress. Eyes: Pupils equal, round and reactive to light. ENT: Pharynx normal. Neck: Normal inspection. Neck supple. no meningeal signs CVS: Normal heart rate and rhythm. Pulses normal. Respiratory: No respiratory distress. Breath sounds normal. Abdomen: Soft and nontender. Skin: Skin warm and dry. Normal skin color. Normal skin turgor. Extremities: No lower extremity edema. No calf ttp both feet warm to touch Neuro: Oriented X 3. No motor deficit. No sensory deficit. 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 She does take aspirin and plavix - CT head ordered. She notes her BP is up due to her chronic leg cramps that she has at night - lytes ordered. Will treat pain and see if this improves her BP. Reports compliance with her BP medications - has no chest pain. Lab Data Result diagrams: 08/08/21 01:11 08/08/21 01:11 Labs: Lab Results 08/08/21 08/08/21 Range/Units 01:11 01:11 WBC 7.9 (4.8-10.8) X10*3/uL RBC 4.23 (4.20-5.50) X10*6/uL Hgb 12.2 (12.0-16.0) g/dl Hct 36.9 L (37.0-47.0) % MCV 87.2 (80.0-98.0) fL MCH 28.8 (27.0-33.0) pg MCHC 33.1 (31.0-35.0) g/dl RDW 13.3 (11.0-16.0) % Plt Count 275 (160-400) X10*3/uL MPV 9.6 (9.4-12.3) fL Immature Gran % (Auto) 0.3 (0.0-0.4) % Neut % (Auto) 61.1 (45-73) % Lymph % (Auto) 27.4 (20-40) % [place] % (Auto) 5.4 (2-11) % Eos % (Auto) 5.2 H (0-4) % Baso % (Auto) 0.6 (0-2) % Lymph # (Auto) 2.2 (1.2-4.9) X10*3/uL [place] # (Auto) 0.4 (0.1-1.2) X10*3/uL Eos # (Auto) 0.4 (0.0-0.4) X10*3/uL Baso # (Auto) 0.1 (0.0-0.2) X10*3/uL Abs Immat Gran (auto) 0.02 (0.00-0.03) X10*3/uL Absolute Neuts (auto) 4.8 (2.0-8.3) x10*3/uL Absolute Nucleated RBC 0.000 (0.0-0.012) X10*3/uL Nucleated RBC % (auto) 0.0 (0.0-0.2) /100WBC Sodium 138 (135-145) mmol/L Potassium 4.1 (3.3-5.1) mmol/L Chloride 104 (96-108) mmol/L Carbon Dioxide 25 (22-29) mmol/L Anion Gap 13 (12-20) BUN 17 H D (9-16) mg/dL Creatinine 0.86 (0.5-1.4) mg/dL Estim Creat Clear Calc 60.2 Estimated GFR > 60 Random Glucose 330 H (60-115) mg/dL Calcium 9.5 (8.4-10.2) mg/dL Magnesium 1.5 L (1.6-2.6) mg/dL ECG Data Attestation: I personally reviewed and interpreted this ECG as follows: ECG interpretation date: 08/08/21 ECG interpretation time: 01:08 Interpretation: Rate: 95 Rhythm: NSR [place]: normal Normal P waves. Normal GRETCHEN. Normal QRS complex. ST T wave : non-specific no ANGI qTC: normal prior studies: no acute ischemia The study has been interpreted contemporaneously by me. Discharge Plan Discharge Clinical Impression: Hypomagnesemia Hypertension Qualifiers: Hypertension type: unspecified Qualified Code(s): I10 - Essential (primary) hypertension Acute tension headache Qualifiers: Intractability: not intractable Qualified Code(s): G44.209 - Tension-type headache, unspecified, not intractable Patient Disposition: Home, Self-Care Instructions: Acute Headache (ED), Hypertension (ED), Hypomagnesemia (ED) Additional Instructions: return to ED for any worsening symptoms or concerns Prescriptions: No Action hydrochlorothiazide 25 mg tablet 25 mg PO DAILY Qty: 30 0RF Rx Instructions: Must call to schedule a cardiology appointment for more refills - overdue pioglitazone 15 mg tablet 15 mg PO DAILY 30 Days Qty: 30 11RF Trulicity 0.75 mg/0.5 mL pen injector 0.75 mg subcut QWEEK 30 Days Qty: 2.5 3RF (DME) lancets [TRUEplus Lancets] 33 gauge misc See Rx Instructions .Route Qty: 100 11RF Rx Instructions: 4x daily metformin 1,000 mg Tablet 1,000 mg PO BID ferrous sulfate 325 mg (65 mg iron) tablet 325 mg PO BID Qty: 60 0RF clopidogrel [Plavix] 75 mg tablet 75 mg PO DAILY Qty: 30 5RF polyethylene glycol 3350 [Miralax] 17 gram/dose powder 17 g PO DAILY Qty: 238 0RF amlodipine 10 mg Tablet 10 mg PO BEDTIME docusate sodium 100 mg Capsule 100 mg PO BID hydralazine 50 mg Tablet 50 mg PO TID pantoprazole [Protonix] 40 mg tablet,delayed release (DR/EC) 40 mg PO BID@0630,1630 lidocaine [Lidoderm] 5 % Adhesive Patch,Medicated 1 patch TOPICAL DAILY fluticasone propionate 50 mcg/actuation [place],Suspension 2 spray INTRANASAL DAILY acetaminophen [Arthritis Pain Relief (acetam)] 650 mg Tablet Extended Release 650 mg PO Q8H PRN (Reason: Pain (Scale Score 1-3)) Flovent HFA 110 mcg/actuation Hfa Aerosol Inhaler 2 puff INHALATION BID albuterol sulfate 2.5 mg /3 mL (0.083 %) Solution For Nebulization 2.5 mg inhalation Q4H PRN (Reason: shortness of breath/wheeze) Qty: 100 0RF tramadol 50 mg tablet 50 mg PO BID PRN (Reason: pain) Qty: 7 0RF amitriptyline 50 mg tablet 1 tab PO BEDTIME oxycodone-acetaminophen 7.5-325 mg tablet 1 tab PO Q6H PRN (Reason: severe pain) amoxicillin-pot clavulanate 875-125 mg tablet 1 tab PO BID Qty: 20 0RF carvedilol [Coreg] 25 mg tablet 25 mg PO BID Rx Instructions: must administer with a meal/food multivitamin Tablet 1 tab PO DAILY lisinopril 40 mg tablet 40 mg PO DAILY gabapentin 800 mg tablet 800 mg PO TID aspirin [Adult Low Dose Aspirin] 81 mg tablet,delayed release (DR/EC) 81 mg PO DAILY escitalopram oxalate [Lexapro] 20 mg tablet 20 mg PO DAILY mirtazapine 45 mg tablet 45 mg PO BEDTIME atorvastatin [Lipitor] 80 mg tablet 80 mg PO BEDTIME Tresiba FlexTouch U-100 100 unit/mL (3 mL) insulin pen 10 unit subcut DAILY (DME) FreeStyle Lite Strips Strip See Rx Instructions Not Applicable QID Qty: 10 Rx Instructions: As directed clotrimazole 1 % cream 1 appl topical BID Referrals: Radha Jamison DO [Primary Care Provider] - (if not better) Print Language: Romanian
[2021-08-08 00:56] VITALS: BP 215/92; PULSE 109; RESP 18; TEMP 36.7; O2SAT 98; BMI 28.9
[2021-08-08 01:14] VITALS: BP 215/92; PULSE 95; RESP 15; O2SAT 98
[2021-08-08 01:16] LABS: MANUAL DIFF FLAG NO
[2021-08-08] MEDS: Morphine Sulfate 2 MG/ML CARTRIDGE IVPUSH (01:17)
[2021-08-08 01:18] LABS: Basophils Absolute Auto 0.1 X10*3/uL (0.0-0.2); Basophils Percent Auto 0.6 % (0-2); Eosinophils Absolute Auto 0.4 X10*3/uL (0.0-0.4); Eosinophils Percent Auto 5.2 % (0-4); Hematocrit 36.9 % (37.0-47.0); Hemoglobin 12.2 g/dl (12.0-16.0); Imm Gran Abs Auto 0.02 X10*3/uL (0.00-0.03); Imm Gran Pct Auto 0.3 % (0.0-0.4); Lymphocytes Absolute Auto 2.2 X10*3/uL (1.2-4.9); Lymphocytes Percent Auto 27.4 % (20-40); Mean Corpuscular HGB Conc 33.1 g/dl (31.0-35.0); Mean Corpuscular Hemoglobin 28.8 pg (27.0-33.0); Mean Corpuscular Volume 87.2 fL (80.0-98.0); Mean Platelet Volume 9.6 fL (9.4-12.3); Monocytes Absolute Auto 0.4 X10*3/uL (0.1-1.2); Monocytes Percent Auto 5.4 % (2-11); Neutrophils Absolute Auto 4.8 x10*3/uL (2.0-8.3); Neutrophils Percent Auto 61.1 % (45-73); Platelet Count 275 X10*3/uL (160-400); Red Blood Count 4.23 X10*6/uL (4.20-5.50); Red Cell Distribution Width 13.3 % (11.0-16.0); White Blood Count 7.9 X10*3/uL (4.8-10.8)
[2021-08-08] MEDS: ondansetron HCL 4 MG/2 ML VIAL IVPUSH (01:18)
[2021-08-08] MEDS: LORazepam 2 MG/ML VIAL 1 MG IVPUSH (01:20)
[2021-08-08 01:39] LABS: Anion Gap 13 (12-20); Blood Urea Nitrogen 17 mg/dL (9-16); Calcium 9.5 mg/dL (8.4-10.2); Carbon Dioxide 25 mmol/L (22-29); Chloride 104 mmol/L (96-108); Creatinine Clr Calc Pharmacy 60.2; Estimated Glomerular Filt Rate > 60; Glucose Random 330 mg/dL (60-115); Magnesium 1.5 mg/dL (1.6-2.6); Potassium 4.1 mmol/L (3.3-5.1); Sodium 138 mmol/L (135-145)
[2021-08-08 02:26] VITALS: BP 155/73; PULSE 93; O2SAT 99
[2021-08-08] MEDS: Magnesium Sulfate/H2O 2 GM/50 ML PIGGYBACK IV (02:35)
[2021-08-08 03:19] VITALS: BP 135/55; PULSE 83; RESP 96; O2SAT 97
--- NOTE | 2021-08-08 03:37 | PC.NURSE ---
Report received and care assumed. Pt found to be resting comfortably in stretcher with snoring respirations without distress noted. Pt's VSS at this time, Magnesium infusion is complete and found hanging to gravity in the room. RN to consult with MD to determine disposition to see if pt clear for discharge and/or if the pt would require additional interventions prior to. Call knox noted to be in reach and RN will continue to monitor.
== END 2021-08-08 04:05 | disposition home or self-care (01) ==
PROVIDERS: Emergency Provider Emergency Medicine; PCP Family Medicine
DX: G44.209 Tension-type headache, unspecified, not intractable (principal); I10 Essential (primary) hypertension; E83.42 Hypomagnesemia; E11.9 Type 2 diabetes mellitus without complications; I25.10 Atherosclerotic heart disease of native coronary artery without angina pectoris; I73.9 Peripheral vascular disease, unspecified; J45.909 Unspecified asthma, uncomplicated; Z79.02 Long term (current) use of antithrombotics/antiplatelets; Z79.82 Long term (current) use of aspirin; Z95.820 Peripheral vascular angioplasty status with implants and grafts
CPT/HCPCS: 36415; 70450; 80048; 83735; 85025; 93005; 96365; 96366; 96375; 99284; J2060; J2270; J2405; J3475

== ENCOUNTER 2021-09-21 08:26 | Emergency (ER) | payer MEDICAID, SELFPAY ==
[2021-09-21] VITALS (9 sets, daily range): BP systolic 139–233; BP diastolic 60–98; PULSE 69–78; RESP 14–21; TEMP 36.9; O2SAT 98–100; BMI 25.7
--- NOTE | ~2021-09-21 | CT_ITS ---
EXAMINATION: CT HEAD WITHOUT CONTRAST CLINICAL INFORMATION: Headache and hypertension COMPARISON: Previous head CT most recent July 2021 TECHNIQUE: Contiguous axial imaging was performed from the skull base to vertex without intravenous administration of contrast. This CT examination was performed using dose optimization techniques as appropriate, variously including the following: *Automated exposure control *Adjustment of mA and/or kV according to patient size (this includes techniques or standardized protocols for targeted exams where dose is matched to indication/reason for exam; i.e. extremities or head) *Use of iterative reconstruction technique DLP: 591 mGy-cm FINDINGS: There is no evidence of acute intracranial hemorrhage or territorial infarction. No abnormal mass effect or midline shift is seen. Kelly to white matter differentiation is well preserved. No extra-axial fluid collections are identified. The ventricles are normal in size. There is no abnormal attenuation within the brain parenchyma. The osseous structures and soft tissues are normal. The mastoid air cells and visualized portions of the paranasal sinuses are well aerated. CT/CT head/brain wo con IMPRESSION: Unremarkable exam.
--- NOTE | 2021-09-21 08:42 | ECG_ITS ---
Test Reason : headache Blood Pressure : / mmHG Vent. Rate : 074 BPM Atrial Rate : 074 BPM P-R Int : 130 ms QRS Dur : 080 ms QT Int : 396 ms P-R-T Axes : 041 011 041 degrees QTc Int : 439 ms Normal sinus rhythm Nonspecific T wave abnormality Borderline ECG When compared with ECG of 08-AUG-2021 00:54, Nonspecific ST and T wave abnormality more prominent Referred By: Paty Guevara Electronically Signed By:JM DU
--- NOTE | 2021-09-21 09:03 | ED_ITS ---
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 Patient states that her appointment with her physician is tomorrow. She denies any associated dizziness, visual changes, denies any speech or numbness/tingling/weakness. In addition, she denies any fever, chills, GI or symptoms. Related Data Home Medications Medication Instructions Recorded Confirmed metformin 1,000 mg tablet 1,000 mg PO BID 12/22/19 05/07/21 aspirin 81 mg tablet,delayed 81 mg PO DAILY 01/02/20 05/07/21 release (Adult Low Dose Aspirin) atorvastatin 80 mg tablet (Lipitor) 80 mg PO BEDTIME 01/02/20 05/07/21 carvedilol 25 mg tablet (Coreg) 25 mg PO BID 01/02/20 05/07/21 escitalopram oxalate 20 mg tablet 20 mg PO DAILY 01/02/20 05/07/21 (Lexapro) gabapentin 800 mg tablet 800 mg PO TID 01/02/20 05/07/21 insulin degludec 100 unit/mL (3 10 unit subcut DAILY 01/02/20 05/07/21 mL) subcutaneous pen (Tresiba FlexTouch U-100 insulin) lisinopril 40 mg tablet 40 mg PO DAILY 01/02/20 05/07/21 mirtazapine 45 mg tablet 45 mg PO BEDTIME 01/02/20 05/07/21 multivitamin 1 tab PO DAILY 01/02/20 05/07/21 acetaminophen 650 mg 650 mg PO Q8H PRN Pain (Scale 01/16/21 05/07/21 tablet,extended release (Arthritis Score 1-3) Pain Relief (acetaminophen) ER) amlodipine 10 mg tablet 10 mg PO BEDTIME 01/16/21 05/07/21 docusate sodium 100 mg capsule 100 mg PO BID 01/16/21 05/07/21 fluticasone propionate 110 2 puff inhalation BID 01/16/21 05/07/21 mcg/actuation HFA aerosol inhaler (Flovent HFA) fluticasone propionate 50 2 spray intranasal DAILY 01/16/21 05/07/21 mcg/actuation nasal spray,suspension hydralazine 50 mg tablet 50 mg PO TID 01/16/21 05/07/21 lidocaine 5 % topical patch 1 patch topical DAILY 01/16/21 05/07/21 (Lidoderm) pantoprazole 40 mg tablet,delayed 40 mg PO BID@0630,1630 01/16/21 05/07/21 release (Protonix) blood sugar diagnostic (FreeStyle #10 ea 03/30/21 Lite Strips) clotrimazole 1 % topical cream 1 appl topical BID 03/30/21 05/07/21 amitriptyline 50 mg tablet 1 tab PO BEDTIME 05/07/21 05/07/21 oxycodone-acetaminophen 7.5 mg-325 1 tab PO Q6H PRN severe pain 05/07/21 05/07/21 mg tablet Previous Rx's Medication Instructions Recorded ferrous sulfate 325 mg (65 mg 325 mg PO BID #60 tabs 05/24/20 iron) tablet hydrochlorothiazide 25 mg tablet 25 mg PO DAILY #30 tabs 08/13/20 clopidogrel 75 mg tablet (Plavix) 75 mg PO DAILY #30 tabs 12/02/20 pioglitazone 15 mg tablet 15 mg PO DAILY 30 days #30 tabs 12/02/20 albuterol sulfate 2.5 mg/3 mL 2.5 mg (3 mL) inhalation Q4H PRN 01/19/21 (0.083 %) solution for nebulization shortness of breath/wheeze #100 mL tramadol 50 mg tablet 50 mg PO BID PRN pain #7 tabs 05/06/21 amoxicillin 875 mg-potassium 1 tab PO BID #20 tabs 05/09/21 clavulanate 125 mg tablet polyethylene glycol 3350 17 17 g PO DAILY #238 grams 07/12/21 gram/dose oral powder (Miralax) dulaglutide 0.75 mg/0.5 mL 0.75 mg (0.5 mL) subcut QWEEK 30 07/14/21 subcutaneous pen injector days #2.5 mL (Trulicity) lancets 33 gauge (TRUEplus Lancets) #100 ea 07/26/21 hydralazine 50 mg tablet 50 mg PO TID #3 tabs 09/21/21 Allergies Allergy/AdvReac Type Severity Reaction Status Date / Time latex [LATEX] Allergy Unknown RASH Verified 07/12/21 00:03 naproxen [From NAPROSYN] Allergy Unknown TACHYCARDIA Verified 07/12/21 00:03 Review of Systems Review of Systems: Pertinent positives and negatives as stated in HPI 10 point review of systems is otherwise negative. PMFSH Past Medical History Source: nursing notes reviewed Medical History Arthritis Asthma CAD (coronary artery disease) Cyst (solitary) of breast Diabetes H. pylori infection HLD (hyperlipidemia) HTN (hypertension) HTN (hypertension) Kidney calculi T2DM (type 2 diabetes mellitus) Vitamin D deficiency Surgical History History of breast surgery History of cardiac cath History of coronary artery bypass graft History of esophagogastroduodenoscopy (EGD) Hx of colonoscopy Family History Family History Mother Diabetes Liver cancer Social History Social History Household Members: Children and Friend(s) Housing: Apartment Do you presently have visiting nurse or other home services: No Alcohol intake: never Patient Tobacco Use Status: Never used Tobacco Tobacco use type: Cigarette Cigarettes Per Day: 2 Years Smoked: 40 +/- e-Cigarette/Vaping Use: Never Used Second Hand Smoke Exposure: No Advance Directives: No Advance Directives Information Provided: Yes service: No Current occupational status: unemployed and disabled Physical Exam Vital Signs: Vital Signs: Last Vital Signs Temp 98.4 F 09/21/21 08:40 Pulse 72 09/21/21 11:57 Resp 20 09/21/21 11:57 BP 139/60 09/21/21 11:57 Pulse Ox 98 09/21/21 11:57 O2 Del Method 09/21/21 11:57 BMI result Body Mass Index 25.7 VITAL SIGNS: Reviewed. GENERAL: Well developed, well nourished, in no acute distress. HEAD: Normocephalic/atraumatic EYES: PERRLA, EOMI EARS: Ext canals without abnormality OROPHARYNX: no oral lesions noted, posterior pharynx clear LUNGS: Normal breath sounds. No adventitious sounds or accessory muscle use. SpO2<98> CARDIOVASCULAR: Regular rate and rhythm without noted murmurs, no JVD or lower extremity edema. ABDOMEN: Soft, non-tender, non-distended with bowel sounds. MUSCULOSKELETAL: No tenderness, deformities, or effusions noted on gross ins pection. EXTREMITIES: No cyanosis, clubbing or edema. SKIN: Inspection of the skin reveals no rashes NEUROLOGIC: Alert and oriented x 4. Strength and sensation to light touch were grossly intact x 4, no facial asymmetry, no pronator drift, cranial nerves 2-12 are grossly intact,. Course Course Course Narrative: 60-year-old female with history and clinical presentation consistent with hypertensive urgency, there are no focal findings, and on review of all investigations there are no acute findings. Patient received 5 mg of hydralazine with good blood pressure control, she is feeling much better and tolerated oral intake without difficulty and will be discharged home with instructions to continue with her follow-up tomorrow with her primary care provider. MDM - Headache Lab Data Result diagrams: 09/21/21 09:21 09/21/21 09:21 Labs: Lab Results 09/21/21 09/21/21 09/21/21 Range/Units 09:21 09:21 09:21 WBC 6.5 (4.8-10.8) X10*3/uL RBC 4.10 L (4.20-5.50) X10*6/uL Hgb 11.8 L (12.0-16.0) g/dl Hct 35.5 L (37.0-47.0) % MCV 86.6 (80.0-98.0) fL MCH 28.8 (27.0-33.0) pg MCHC 33.2 (31.0-35.0) g/dl RDW 13.2 (11.0-16.0) % Plt Count 297 (160-400) X10*3/uL MPV 9.1 L (9.4-12.3) fL Immature Gran % (Auto) 0.5 H (0.0-0.4) % Neut % (Auto) 63.7 (45-73) % Lymph % (Auto) 25.7 (20-40) % [place] % (Auto) 5.3 (2-11) % Eos % (Auto) 4.2 H (0-4) % Baso % (Auto) 0.6 (0-2) % Lymph # (Auto) 1.7 (1.2-4.9) X10*3/uL [place] # (Auto) 0.3 (0.1-1.2) X10*3/uL Eos # (Auto) 0.3 (0.0-0.4) X10*3/uL Baso # (Auto) 0.0 (0.0-0.2) X10*3/uL Abs Immat Gran (auto) 0.03 (0.00-0.03) X10*3/uL Absolute Neuts (auto) 4.1 (2.0-8.3) x10*3/uL Absolute Nucleated RBC 0.000 (0.0-0.012) X10*3/uL Nucleated RBC % (auto) 0.0 (0.0-0.2) /100WBC PT 11.2 (10.0-13.1) SEC INR 1.0 (0.9-1.1) Sodium 138 (135-145) mmol/L Potassium 4.3 (3.3-5.1) mmol/L Chloride 102 (96-108) mmol/L Carbon Dioxide 25 (22-29) mmol/L Anion Gap 15 (12-20) BUN 14 (9-16) mg/dL Creatinine 0.81 (0.5-1.4) mg/dL Estim Creat Clear Calc 73.4 Estimated GFR > 60 POC Glucose (60-115) mg/dL Random Glucose 249 H (60-115) mg/dL Calcium 9.3 (8.4-10.2) mg/dL Total Bilirubin 0.5 (0.0-1.0) mg/dL AST 10 (5-31) U/L ALT 10 (0-31) U/L Alkaline Phosphatase 97 (39-117) U/L Troponin I High Sens (<3.5-17.0) ng/L Total Protein 6.9 (6.5-8.0) g/dL Albumin 4.1 (3.5-5.0) g/dL Urine Color Urine Appearance Urine pH (5.0-8.0) Ur Specific [place] (1.005-1.025) Urine Protein (NEG-TRACE) MG/DL Urine Glucose (UA) (NEG) MG/DL Urine Ketones (NEG) MG/DL Urine Blood (NEG) Urine Nitrite (NEG) Ur Leukocyte Esterase (NEG) Urine RBC (0) /HPF Urine WBC (0-4) /HPF Ur Squamous Epith Cells /LPF Urine Bacteria /LPF COVID-19 ([facility]) (Negative) COVID-19 Clin Com 09/21/21 09/21/21 09/21/21 Range/Units 09:21 10:27 11:32 WBC (4.8-10.8) X10*3/uL RBC (4.20-5.50) X10*6/uL Hgb (12.0-16.0) g/dl Hct (37.0-47.0) % MCV (80.0-98.0) fL MCH (27.0-33.0) pg MCHC (31.0-35.0) g/dl RDW (11.0-16.0) % Plt Count (160-400) X10*3/uL MPV (9.4-12.3) fL Immature Gran % (Auto) (0.0-0.4) % Neut % (Auto) (45-73) % Lymph % (Auto) (20-40) % [place] % (Auto) (2-11) % Eos % (Auto) (0-4) % Baso % (Auto) (0-2) % Lymph # (Auto) (1.2-4.9) X10*3/uL [place] # (Auto) (0.1-1.2) X10*3/uL Eos # (Auto) (0.0-0.4) X10*3/uL Baso # (Auto) (0.0-0.2) X10*3/uL Abs Immat Gran (auto) (0.00-0.03) X10*3/uL Absolute Neuts (auto) (2.0-8.3) x10*3/uL Absolute Nucleated RBC (0.0-0.012) X10*3/uL Nucleated RBC % (auto) (0.0-0.2) /100WBC PT (10.0-13.1) SEC INR (0.9-1.1) Sodium (135-145) mmol/L Potassium (3.3-5.1) mmol/L Chloride (96-108) mmol/L Carbon Dioxide (22-29) mmol/L Anion Gap (12-20) BUN (9-16) mg/dL Creatinine (0.5-1.4) mg/dL Estim Creat Clear Calc Estimated GFR POC Glucose 215 H (60-115) mg/dL Random Glucose (60-115) mg/dL Calcium (8.4-10.2) mg/dL Total Bilirubin (0.0-1.0) mg/dL AST (5-31) U/L ALT (0-31) U/L Alkaline Phosphatase (39-117) U/L Troponin I High Sens 3.9 (<3.5-17.0) ng/L Total Protein (6.5-8.0) g/dL Albumin (3.5-5.0) g/dL Urine Color YELLOW Urine Appearance CLEAR Urine pH 6.5 (5.0-8.0) Ur Specific [place] 1.010 (1.005-1.025) Urine Protein 1+ H (NEG-TRACE) MG/DL Urine Glucose (UA) 500 H (NEG) MG/DL Urine Ketones NEG (NEG) MG/DL Urine Blood 1+ H (NEG) Urine Nitrite NEG (NEG) Ur Leukocyte Esterase NEG (NEG) Urine RBC 5-9 H (0) /HPF Urine WBC 0 (0-4) /HPF Ur Squamous Epith Cells 2+ /LPF Urine Bacteria TRACE /LPF COVID-19 ([facility]) (Negative) COVID-19 Clin Com 09/21/21 Range/Units 11:33 WBC (4.8-10.8) X10*3/uL RBC (4.20-5.50) X10*6/uL Hgb (12.0-16.0) g/dl Hct (37.0-47.0) % MCV (80.0-98.0) fL MCH (27.0-33.0) pg MCHC (31.0-35.0) g/dl RDW (11.0-16.0) % Plt Count (160-400) X10*3/uL MPV (9.4-12.3) fL Immature Gran % (Auto) (0.0-0.4) % Neut % (Auto) (45-73) % Lymph % (Auto) (20-40) % [place] % (Auto) (2-11) % Eos % (Auto) (0-4) % Baso % (Auto) (0-2) % Lymph # (Auto) (1.2-4.9) X10*3/uL [place] # (Auto) (0.1-1.2) X10*3/uL Eos # (Auto) (0.0-0.4) X10*3/uL Baso # (Auto) (0.0-0.2) X10*3/uL Abs Immat Gran (auto) (0.00-0.03) X10*3/uL Absolute Neuts (auto) (2.0-8.3) x10*3/uL Absolute Nucleated RBC (0.0-0.012) X10*3/uL Nucleated RBC % (auto) (0.0-0.2) /100WBC PT (10.0-13.1) SEC INR (0.9-1.1) Sodium (135-145) mmol/L Potassium (3.3-5.1) mmol/L Chloride (96-108) mmol/L Carbon Dioxide (22-29) mmol/L Anion Gap (12-20) BUN (9-16) mg/dL Creatinine (0.5-1.4) mg/dL Estim Creat Clear Calc Estimated GFR POC Glucose (60-115) mg/dL Random Glucose (60-115) mg/dL Calcium (8.4-10.2) mg/dL Total Bilirubin (0.0-1.0) mg/dL AST (5-31) U/L ALT (0-31) U/L Alkaline Phosphatase (39-117) U/L Troponin I High Sens (<3.5-17.0) ng/L Total Protein (6.5-8.0) g/dL Albumin (3.5-5.0) g/dL Urine Color Urine Appearance Urine pH (5.0-8.0) Ur Specific [place] (1.005-1.025) Urine Protein (NEG-TRACE) MG/DL Urine Glucose (UA) (NEG) MG/DL Urine Ketones (NEG) MG/DL Urine Blood (NEG) Urine Nitrite (NEG) Ur Leukocyte Esterase (NEG) Urine RBC (0) /HPF Urine WBC (0-4) /HPF Ur Squamous Epith Cells /LPF Urine Bacteria /LPF COVID-19 ([facility]) Negative (Negative) COVID-19 Clin Com See Note ECG Data Attestation: I personally reviewed and interpreted this ECG as follows: Prior ECG tracings: available for review (No acute changes from baseline) Interpretation: Normal sinus rhythm, HR-74, no STEMI, nonspecific T-wave abnormality which is unchanged when compared to prior, FL/QRS/QTC is within normal limits. Discharge Plan Discharge Clinical Impression: Hypertensive urgency, Headache Patient Disposition: Home, Self-Care Instructions: Hypertensive Crisis (ED), General Headache (ED) Additional Instructions: 1. Reanudar todos los medicamentos caseros seg?n lo prescrito. 2. Mantenga weaver connor programada ma?ludmila por la ma?ludmila. Se le [place] proporcionado suficiente medicaci?n para hoy. Regrese a la james de emergencias si los s?ntomas empeoran. Prescriptions: New hydralazine 50 mg tablet 50 mg PO TID Qty: 3 0RF No Action hydrochlorothiazide 25 mg tablet 25 mg PO DAILY Qty: 30 0RF Rx Instructions: Must call to schedule a cardiology appointment for more refills - overdue pioglitazone 15 mg tablet 15 mg PO DAILY 30 Days Qty: 30 11RF Trulicity 0.75 mg/0.5 mL pen injector 0.75 mg subcut QWEEK 30 Days Qty: 2.5 3RF (DME) lancets [TRUEplus Lancets] 33 gauge misc See Rx Instructions .Route Qty: 100 11RF Rx Instructions: 4x daily metformin 1,000 mg Tablet 1,000 mg PO BID ferrous sulfate 325 mg (65 mg iron) tablet 325 mg PO BID Qty: 60 0RF clopidogrel [Plavix] 75 mg tablet 75 mg PO DAILY Qty: 30 5RF polyethylene glycol 3350 [Miralax] 17 gram/dose powder 17 g PO DAILY Qty: 238 0RF amlodipine 10 mg Tablet 10 mg PO BEDTIME docusate sodium 100 mg Capsule 100 mg PO BID hydralazine 50 mg Tablet 50 mg PO TID pantoprazole [Protonix] 40 mg tablet,delayed release (DR/EC) 40 mg PO BID@0630,1630 lidocaine [Lidoderm] 5 % Adhesive Patch,Medicated 1 patch TOPICAL DAILY fluticasone propionate 50 mcg/actuation [place],Suspension 2 spray INTRANASAL DAILY acetaminophen [Arthritis Pain Relief (acetam)] 650 mg Tablet Extended Release 650 mg PO Q8H PRN (Reason: Pain (Scale Score 1-3)) Flovent HFA 110 mcg/actuation Hfa Aerosol Inhaler 2 puff INHALATION BID albuterol sulfate 2.5 mg /3 mL (0.083 %) Solution For Nebulization 2.5 mg inhalation Q4H PRN (Reason: shortness of breath/wheeze) Qty: 100 0RF tramadol 50 mg tablet 50 mg PO BID PRN (Reason: pain) Qty: 7 0RF amitriptyline 50 mg tablet 1 tab PO BEDTIME oxycodone-acetaminophen 7.5-325 mg tablet 1 tab PO Q6H PRN (Reason: severe pain) amoxicillin-pot clavulanate 875-125 mg tablet 1 tab PO BID Qty: 20 0RF carvedilol [Coreg] 25 mg tablet 25 mg PO BID Rx Instructions: must administer with a meal/food multivitamin Tablet 1 tab PO DAILY lisinopril 40 mg tablet 40 mg PO DAILY gabapentin 800 mg tablet 800 mg PO TID aspirin [Adult Low Dose Aspirin] 81 mg tablet,delayed release (DR/EC) 81 mg PO DAILY escitalopram oxalate [Lexapro] 20 mg tablet 20 mg PO DAILY mirtazapine 45 mg tablet 45 mg PO BEDTIME atorvastatin [Lipitor] 80 mg tablet 80 mg PO BEDTIME Tresiba FlexTouch U-100 100 unit/mL (3 mL) insulin pen 10 unit subcut DAILY (DME) FreeStyle Lite Strips Strip See Rx Instructions Not Applicable QID Qty: 10 Rx Instructions: As directed clotrimazole 1 % cream 1 appl topical BID Referrals: Radha Jamison DO [Primary Care Provider] - Print Language: Barbadian
[2021-09-21] MEDS: hydrALAZINE HCl 20 MG/ML VIAL 5 MG IVPUSH (09:27)
[2021-09-21 09:28] LABS: MANUAL DIFF FLAG NO
[2021-09-21 09:29] LABS: Basophils Percent Auto 0.6 % (0-2); Eosinophils Absolute Auto 0.3 X10*3/uL (0.0-0.4); Eosinophils Percent Auto 4.2 % (0-4); Hematocrit 35.5 % (37.0-47.0); Hemoglobin 11.8 g/dl (12.0-16.0); Imm Gran Abs Auto 0.03 X10*3/uL (0.00-0.03); Imm Gran Pct Auto 0.5 % (0.0-0.4); Lymphocytes Absolute Auto 1.7 X10*3/uL (1.2-4.9); Lymphocytes Percent Auto 25.7 % (20-40); Mean Corpuscular HGB Conc 33.2 g/dl (31.0-35.0); Mean Corpuscular Hemoglobin 28.8 pg (27.0-33.0); Mean Corpuscular Volume 86.6 fL (80.0-98.0); Mean Platelet Volume 9.1 fL (9.4-12.3); Monocytes Absolute Auto 0.3 X10*3/uL (0.1-1.2); Monocytes Percent Auto 5.3 % (2-11); Neutrophils Absolute Auto 4.1 x10*3/uL (2.0-8.3); Neutrophils Percent Auto 63.7 % (45-73); Platelet Count 297 X10*3/uL (160-400); Red Cell Distribution Width 13.2 % (11.0-16.0); White Blood Count 6.5 X10*3/uL (4.8-10.8)
[2021-09-21] MEDS: Acetaminophen 325 MG TABLET 975 MG PO (09:31)
[2021-09-21 09:35] LABS: Prothrombin Time 11.2 SEC (10.0-13.1)
[2021-09-21 09:45] LABS: Alanine Aminotransferase 10 U/L (0-31); Albumin Level 4.1 g/dL (3.5-5.0); Alkaline Phosphatase 97 U/L (39-117); Anion Gap 15 (12-20); Aspartate Amino Transferase 10 U/L (5-31); Bilirubin Total 0.5 mg/dL (0.0-1.0); Blood Urea Nitrogen 14 mg/dL (9-16); Calcium 9.3 mg/dL (8.4-10.2); Carbon Dioxide 25 mmol/L (22-29); Chloride 102 mmol/L (96-108); Creatinine Clr Calc Pharmacy 73.4; Estimated Glomerular Filt Rate > 60; Glucose Random 249 mg/dL (60-115); Potassium 4.3 mmol/L (3.3-5.1); Sodium 138 mmol/L (135-145); Total Protein 6.9 g/dL (6.5-8.0)
[2021-09-21 09:50] LABS: Troponin-I High Sensitivity 3.9 ng/L (<3.5-17.0)
[2021-09-21 10:33] LABS: Appearance Urine CLEAR; Color Urine YELLOW; Glucose Urine UA 500 MG/DL (NEG); Leukocyte Esterase Urine NEG (NEG); Nitrite Urine NEG (NEG); PH 6.5 (5.0-8.0); UACC Culture Trigger NO; Urine Blood 1+ (NEG); Urine Ketones NEG (NEG); Urine Protein 1+ MG/DL (NEG-TRACE)
--- NOTE | 2021-09-21 10:52 | PC.NURSE ---
PT C/O HEADACHE THAT SHE ASSOCIATES WITH HER ELEVATED BLOOD PRESSURE. SHE STATED THAT SHE HAS BEEN COMPLIANT WITH HER BLOOD PRESSURE MEDS BUT SHE RAN OUT AND HAS AN APPOINTMENT TOMORROW FOR REFILL. SHE DENIES NUMBNESS/TINGLING/RADIATING PAIN. SHE REPORTS SOME BLURRINESS. NEUROS INTACT. EQUAL STRENGTH ALL EXTREMITIES. DENIES ANY OTHER SYMPTOMS. B/P ON ARRIVAL 200s/high 90s. CURRENT B/P 160s/high 60s AFTER B/P MEDS. PT CURRENTLY RESTING QUIETLY, NO APPARENT DISTRESS. IV ESTABLISHED.
[2021-09-21 10:54] LABS: Bacteria Urine TRACE /LPF; Squamous Epithelial Cell Urine 2+ /LPF; WBC Urine 0 /HPF (0-4)
[2021-09-21] MEDS: ondansetron HCL 4 MG/2 ML VIAL IVPUSH (11:31)
[2021-09-21 11:36] LABS: Glucose, Whole Blood 215 mg/dL (60-115)
[2021-09-21 11:58] LABS: COVID-19 Test Negative (Negative); IDNOW Serial# 9DB6401D
[2021-09-21] MEDS: hydroCHLOROthiazide 25 MG TABLET PO (13:21)
[2021-09-21] MEDS: lisinopriL 40 MG TABLET PO (13:22)
== END 2021-09-21 13:31 | disposition home or self-care (01) ==
PROVIDERS: Emergency Provider Student in an Organized Health Care Education/Training Program; PCP Family Medicine
DX: I16.0 Hypertensive urgency (principal); R51.9 Headache, unspecified; Z20.822 Contact with and (suspected) exposure to COVID-19; E11.9 Type 2 diabetes mellitus without complications; I10 Essential (primary) hypertension; E78.5 Hyperlipidemia, unspecified; Z79.82 Long term (current) use of aspirin; Z79.02 Long term (current) use of antithrombotics/antiplatelets; Z79.4 Long term (current) use of insulin; Z79.899 Other long term (current) drug therapy; Z87.891 Personal history of nicotine dependence
CPT/HCPCS: 36415; 70450; 80053; 81001; 82947; 84484; 85025; 85610; 87635; 93005; 96374; 96375; 99284; 99285; J2405

== ENCOUNTER 2021-10-01 10:13 | Outpatient (REF) | payer MEDICAID, SELFPAY ==
[2021-10-01 10:40] LABS: Hematocrit 35.6 % (37.0-47.0); Hemoglobin 11.8 g/dl (12.0-16.0); Mean Corpuscular HGB Conc 33.1 g/dl (31.0-35.0); Mean Corpuscular Hemoglobin 28.5 pg (27.0-33.0); Mean Platelet Volume 9.7 fL (9.4-12.3); Platelet Count 300 X10*3/uL (160-400); Red Blood Count 4.14 X10*6/uL (4.20-5.50); Red Cell Distribution Width 13.6 % (11.0-16.0); White Blood Count 5.4 X10*3/uL (4.8-10.8)
[2021-10-01 10:45] LABS: Estimated Average Glucose 269 mg/dL
[2021-10-01 11:12] LABS: Alanine Aminotransferase 6 U/L (0-31); Albumin Level 3.8 g/dL (3.5-5.0); Alkaline Phosphatase 88 U/L (39-117); Anion Gap 14 (12-20); Aspartate Amino Transferase 9 U/L (5-31); Bilirubin Direct 0.2 mg/dL (0.0-0.5); Bilirubin Total 0.6 mg/dL (0.0-1.0); Blood Urea Nitrogen 17 mg/dL (9-16); C Reactive Protein 0.58 mg/dL (< or = 0.50); Calcium 9.3 mg/dL (8.4-10.2); Carbon Dioxide 24 mmol/L (22-29); Chloride 105 mmol/L (96-108); Cholesterol 246 mg/dL; Estimated Glomerular Filt Rate > 60; Glucose Random 346 mg/dL (60-115); HDL Cholesterol 44 mg/dL; Iron 79 mcg/dL (30-160); LDL Cholesterol Calculated 178 mg/dl; Percent Iron Saturation 28 % (15-50); Potassium 4.1 mmol/L (3.3-5.1); Sodium 139 mmol/L (135-145); Total Iron Binding Capacity 278 mcg/dL (228-428); Total Protein 6.4 g/dL (6.5-8.0); Triglycerides 122 mg/dL; Unsaturated Iron Binding 199 ug/dL
[2021-10-01 11:24] LABS: ~HepC Num1 0.07 S/CO (0.00-0.79); ~Hepatitis C Antibody Nonreactive (Nonreactive)
[2021-10-01 11:25] LABS: HIV AB/AG Nonreactive (Nonreactive); HIV Num 1 0.05 S/CO (0.00-0.99)
[2021-10-01 11:35] LABS: Ferritin 80 ng/mL (10-250); Free T4 (Free Thyroxine) 1.05 ng/dL (0.71-1.85); Thyroid Stimulating Hormone 0.62 uIU/mL (0.32-4.0); Vitamin D 25-OH Total 21.5 ng/mL (>30)
[2021-10-01 11:47] LABS: Appearance Urine Clear; Color Urine Yellow; Glucose Urine UA 500 mg/dL (Negative); Leukocyte Esterase Urine Negative (Negative); Nitrite Urine Negative (Negative); Specific Gravity - Urine 1.015 (1.005-1.025); Urine Blood Trace (Negative); Urine Ketones Negative (Negative); Urine Protein 100 (2+) mg/dL (Neg-Trace)
[2021-10-01 11:54] LABS: Folate 17.5 ng/mL (> or = 4.0); Vitamin B12 267 pg/mL (200-900)
[2021-10-01 12:08] LABS: WBC Urine 0-5 /HPF (0-5)
[2021-10-01 12:09] LABS: Bacteria Urine None Seen (None Seen); Hyaline Casts Urine 0-2 /LPF (0-2); RBC Urine 0-2 /HPF (0-2); Squamous Epithelial Cell Urine 0-2 /HPF (0-2)
[2021-10-01 12:10] LABS: Creatinine Urine 66.36 mg/dL
[2021-10-01 12:27] LABS: Microalbum/Creatinine Ratio Ur 961.4 ug/mg cr
[2021-10-05 21:12] LABS: TS Negative Control Passed; TS Panel A 67; TS Panel B 30; TS Positive Control Passed; TSpotTB Positive (Negative)
== END 2021-10-01 10:14 | disposition home or self-care (01) ==
LOC: HO.CT 10:13
PROVIDERS: PCP Family Medicine; Visit Provider Family Medicine
DX: R91.1 Solitary pulmonary nodule (principal); R63.4 Abnormal weight loss
CPT/HCPCS: 36415; 80048; 80061; 80076; 81001; 82043; 82306; 82607; 82728; 82746; 83036; 83540; 84439; 84443; 85027; 86140; 86481; 86803; 87389

== ENCOUNTER 2021-10-04 22:55 | Emergency (ER) | payer MEDICAID, SELFPAY ==
[2021-10-04 23:01] VITALS: BP 176/80; BP 189/77; PULSE 77; PULSE 82; RESP 20; TEMP 36.7; O2SAT 98; O2SAT 99; BMI 25.6
--- NOTE | 2021-10-04 23:08 | PC.NURSE ---
Monkey Trainer used for triage, patient crying during triage. Patient removed lidocaine patch from lower back at this time.
--- NOTE | 2021-10-04 23:12 | ED_ITS ---
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 patient was sitting and her back hurt her when she went to get up. Patient called the ambulance because she was crying in pain when she was lying down. patient was here 3 days ago for high blood pressure MD elicited complaint: back pain Pertinent past history: prior back pain Onset (ago): hour(s) Timing: constant Severity: mild Similar Symptoms Previously: Yes Quality: sharp Location: lumbar spine Exacerbating factors: sitting upright Associated symptoms: denies other symptoms Work related injury: No Related Data Home Medications Medication Instructions Recorded Confirmed metformin 1,000 mg tablet 1,000 mg PO BID 12/22/19 05/07/21 aspirin 81 mg tablet,delayed 81 mg PO DAILY 01/02/20 05/07/21 release (Adult Low Dose Aspirin) atorvastatin 80 mg tablet (Lipitor) 80 mg PO BEDTIME 01/02/20 05/07/21 carvedilol 25 mg tablet (Coreg) 25 mg PO BID 01/02/20 05/07/21 escitalopram oxalate 20 mg tablet 20 mg PO DAILY 01/02/20 05/07/21 (Lexapro) gabapentin 800 mg tablet 800 mg PO TID 01/02/20 05/07/21 insulin degludec 100 unit/mL (3 10 unit subcut DAILY 01/02/20 05/07/21 mL) subcutaneous pen (Tresiba FlexTouch U-100 insulin) lisinopril 40 mg tablet 40 mg PO DAILY 01/02/20 05/07/21 mirtazapine 45 mg tablet 45 mg PO BEDTIME 01/02/20 05/07/21 multivitamin 1 tab PO DAILY 01/02/20 05/07/21 acetaminophen 650 mg 650 mg PO Q8H PRN Pain (Scale 01/16/21 05/07/21 tablet,extended release (Arthritis Score 1-3) Pain Relief (acetaminophen) ER) amlodipine 10 mg tablet 10 mg PO BEDTIME 01/16/21 05/07/21 docusate sodium 100 mg capsule 100 mg PO BID 01/16/21 05/07/21 fluticasone propionate 110 2 puff inhalation BID 01/16/21 05/07/21 mcg/actuation HFA aerosol inhaler (Flovent HFA) fluticasone propionate 50 2 spray intranasal DAILY 01/16/21 05/07/21 mcg/actuation nasal spray,suspension hydralazine 50 mg tablet 50 mg PO TID 01/16/21 05/07/21 lidocaine 5 % topical patch 1 patch topical DAILY 01/16/21 05/07/21 (Lidoderm) pantoprazole 40 mg tablet,delayed 40 mg PO BID@0630,1630 01/16/21 05/07/21 release (Protonix) blood sugar diagnostic (FreeStyle #10 ea 03/30/21 Lite Strips) clotrimazole 1 % topical cream 1 appl topical BID 03/30/21 05/07/21 amitriptyline 50 mg tablet 1 tab PO BEDTIME 05/07/21 05/07/21 oxycodone-acetaminophen 7.5 mg-325 1 tab PO Q6H PRN severe pain 05/07/21 05/07/21 mg tablet Previous Rx's Medication Instructions Recorded ferrous sulfate 325 mg (65 mg 325 mg PO BID #60 tabs 05/24/20 iron) tablet hydrochlorothiazide 25 mg tablet 25 mg PO DAILY #30 tabs 08/13/20 clopidogrel 75 mg tablet (Plavix) 75 mg PO DAILY #30 tabs 12/02/20 pioglitazone 15 mg tablet 15 mg PO DAILY 30 days #30 tabs 12/02/20 albuterol sulfate 2.5 mg/3 mL 2.5 mg (3 mL) inhalation Q4H PRN 01/19/21 (0.083 %) solution for nebulization shortness of breath/wheeze #100 mL tramadol 50 mg tablet 50 mg PO BID PRN pain #7 tabs 05/06/21 amoxicillin 875 mg-potassium 1 tab PO BID #20 tabs 05/09/21 clavulanate 125 mg tablet polyethylene glycol 3350 17 17 g PO DAILY #238 grams 07/12/21 gram/dose oral powder (Miralax) dulaglutide 0.75 mg/0.5 mL 0.75 mg (0.5 mL) subcut QWEEK 30 07/14/21 subcutaneous pen injector days #2.5 mL (Trulicity) lancets 33 gauge (TRUEplus Lancets) #100 ea 07/26/21 hydralazine 50 mg tablet 50 mg PO TID #3 tabs 09/21/21 cyclobenzaprine 10 mg tablet 10 mg PO TID #10 tabs 10/05/21 Allergies Allergy/AdvReac Type Severity Reaction Status Date / Time latex [LATEX] Allergy Unknown RASH Verified 10/04/21 23:07 naproxen [From NAPROSYN] Allergy Unknown TACHYCARDIA Verified 10/04/21 23:07 Review of Systems Constitutional: Constitutional: Reports no additional constitutional complaints Eyes: Eyes: Reports no additional eye complaints ENT: Denies dizziness Cardiovascular: Cardiovascular: Reports no additional cardiovascular complaints Respiratory: Respiratory: Reports as per HPI Gastrointestinal: Gastrointestinal: Reports no additional gastrointestinal complaints Genitourinary: Genitourinary: Reports no additional female genitourinary complaints Musculoskeletal: Musculoskeletal: Reports no additional musculoskeletal complaints Integumentary/Breasts: Skin/Breast: Denies rash Neurologic: Reports system reviewed and no additional complaints, except as documented, Denies dizziness and Denies Sensory deficit (Neuro) Psychiatric: Psychiatric: Denies anxiety [facility] Past Medical History Medical History Arthritis Asthma CAD (coronary artery disease) Cyst (solitary) of breast Diabetes H. pylori infection HLD (hyperlipidemia) HTN (hypertension) HTN (hypertension) Kidney calculi T2DM (type 2 diabetes mellitus) Vitamin D deficiency Surgical History History of breast surgery History of cardiac cath History of coronary artery bypass graft History of esophagogastroduodenoscopy (EGD) Hx of colonoscopy Family History Family History Mother Diabetes Liver cancer Social History Social History Household Members: Children and Friend(s) Housing: Apartment Do you presently have visiting nurse or other home services: No Alcohol intake: never Patient Tobacco Use Status: Never used Tobacco Tobacco use type: Cigarette Cigarettes Per Day: 2 Years Smoked: 40 +/- e-Cigarette/Vaping Use: Never Used Second Hand Smoke Exposure: No service: No Current occupational status: unemployed and disabled Physical Exam Vital Signs: Vital Signs: Last Vital Signs Temp 98.0 F 10/04/21 23:01 Pulse 77 10/04/21 23:01 Resp 20 10/04/21 23:01 BP 176/80 H 10/04/21 23:01 Pulse Ox 99 10/04/21 23:01 O2 Del Method 10/04/21 23:01 BMI result Body Mass Index 25.6 Const: Other: anxious tearful Nutritional Appearance: average body habitus Orientation/consciousness: oriented to person and patient oriented x3 Limitations: no limitations HEENT: Head: Yes normal to inspection Ears: external ears normal General nose exam: Normal external nose present Mouth: Normal oral and palatal mucosa present and oropharynx normal Throat: Yes posterior oropharynx normal Eyes: General: appearance normal, both eyes and all related structures Neck: Other: supple Neck: Yes normal visual inspection Chest: Chest palpation & inspection: normal inspection of the chest Resp: Auscultation: clear to auscultation bilaterally Cardio: Jugular venous distension: no JVD Rate: regular rate Rhythm: regular rhythm Heart sounds: S1 normal heart sound present and S2 normal heart sound present GI: Inspection: Yes normal to inspection Palpation (GI): Soft to palpation, nontender and No hepatosplenomegaly present Auscultation: normal bowel sounds Back/Spine/Pelvis: Other: SI joint and sciatic notch with tenderness Skin: General skin exam: no rashes or lesions noted Neuro: General: oriented to person and patient oriented x3 Cranial nerves: Yes CN's II-XII intact bilaterally Motor exam (neuro): 5/5 motor strength present throughout Sensory Exam: No Sensory deficit (Neuro) Extrem: Other: both feet warm with good pulses Psych: Appearance: grossly normal Course Reevaluation(s) Reevaluation #1: patient with no evidence of vascular emergency, now improved back pain will dc on flexeril Time: 00:06 Discharge Plan Discharge Clinical Impression: Lumbar radiculopathy, Sciatica Patient Disposition: Home, Self-Care Instructions: Acute Low Back Pain (ED), Lumbar Radiculopathy (ED), Back Pain (ED) Prescriptions: New cyclobenzaprine 10 mg tablet 10 mg PO TID Qty: 10 0RF No Action hydrochlorothiazide 25 mg tablet 25 mg PO DAILY Qty: 30 0RF Rx Instructions: Must call to schedule a cardiology appointment for more refills - overdue pioglitazone 15 mg tablet 15 mg PO DAILY 30 Days Qty: 30 11RF Trulicity 0.75 mg/0.5 mL pen injector 0.75 mg subcut QWEEK 30 Days Qty: 2.5 3RF (DME) lancets [TRUEplus Lancets] 33 gauge misc See Rx Instructions .Route Qty: 100 11RF Rx Instructions: 4x daily metformin 1,000 mg Tablet 1,000 mg PO BID ferrous sulfate 325 mg (65 mg iron) tablet 325 mg PO BID Qty: 60 0RF clopidogrel [Plavix] 75 mg tablet 75 mg PO DAILY Qty: 30 5RF polyethylene glycol 3350 [Miralax] 17 gram/dose powder 17 g PO DAILY Qty: 238 0RF amlodipine 10 mg Tablet 10 mg PO BEDTIME docusate sodium 100 mg Capsule 100 mg PO BID hydralazine 50 mg Tablet 50 mg PO TID pantoprazole [Protonix] 40 mg tablet,delayed release (DR/EC) 40 mg PO BID@0630,1630 lidocaine [Lidoderm] 5 % Adhesive Patch,Medicated 1 patch TOPICAL DAILY fluticasone propionate 50 mcg/actuation [place],Suspension 2 spray INTRANASAL DAILY acetaminophen [Arthritis Pain Relief (acetam)] 650 mg Tablet Extended Release 650 mg PO Q8H PRN (Reason: Pain (Scale Score 1-3)) Flovent HFA 110 mcg/actuation Hfa Aerosol Inhaler 2 puff INHALATION BID albuterol sulfate 2.5 mg /3 mL (0.083 %) Solution For Nebulization 2.5 mg inhalation Q4H PRN (Reason: shortness of breath/wheeze) Qty: 100 0RF tramadol 50 mg tablet 50 mg PO BID PRN (Reason: pain) Qty: 7 0RF amitriptyline 50 mg tablet 1 tab PO BEDTIME oxycodone-acetaminophen 7.5-325 mg tablet 1 tab PO Q6H PRN (Reason: severe pain) amoxicillin-pot clavulanate 875-125 mg tablet 1 tab PO BID Qty: 20 0RF hydralazine 50 mg tablet 50 mg PO TID Qty: 3 0RF carvedilol [Coreg] 25 mg tablet 25 mg PO BID Rx Instructions: must administer with a meal/food multivitamin Tablet 1 tab PO DAILY lisinopril 40 mg tablet 40 mg PO DAILY gabapentin 800 mg tablet 800 mg PO TID aspirin [Adult Low Dose Aspirin] 81 mg tablet,delayed release (DR/EC) 81 mg PO DAILY escitalopram oxalate [Lexapro] 20 mg tablet 20 mg PO DAILY mirtazapine 45 mg tablet 45 mg PO BEDTIME atorvastatin [Lipitor] 80 mg tablet 80 mg PO BEDTIME Tresiba FlexTouch U-100 100 unit/mL (3 mL) insulin pen 10 unit subcut DAILY (DME) FreeStyle Lite Strips Strip See Rx Instructions Not Applicable QID Qty: 10 Rx Instructions: As directed clotrimazole 1 % cream 1 appl topical BID Referrals: Physician,Nonstaff [Physician] - 1 week
[2021-10-05] MEDS: Ketorolac Tromethamine 30 MG/ML VIAL IM (00:08)
[2021-10-05] MEDS: Cyclobenzaprine HCl 10 MG TABLET PO (00:09)
== END 2021-10-05 00:54 | disposition home or self-care (01) ==
PROVIDERS: Emergency Provider Emergency Medicine
DX: M54.42 Lumbago with sciatica, left side (principal); M54.41 Lumbago with sciatica, right side; M79.674 Pain in right toe(s); Z79.899 Other long term (current) drug therapy; F17.210 Nicotine dependence, cigarettes, uncomplicated; Z71.6 Tobacco abuse counseling
CPT/HCPCS: 96372; 99283; 99284; J1885

== ENCOUNTER 2021-10-06 12:49 | Outpatient (REF) | payer MEDICAID, SELFPAY ==
--- NOTE | ~2021-10-06 | US_ITS ---
EXAMINATION: US DIAGNOSTIC ULTRASOUND BREAST, LEFT CLINICAL INFORMATION: Left mastodynia. COMPARISON: Mammography of same day and mammography dating back to December 11, 2009. TECHNIQUE: Ultrasound of the breast is performed with real-time brantley scale imaging and color Doppler. FINDINGS: There is no focal suspicious finding. There is no solid mass, architectural abnormality, duct ectasia, or edema in the soft tissue planes. Results are discussed with the patient at time of visit. US/US breast LT limited IMPRESSION: No suspicious left breast ultrasound findings. ASSESSMENT: BI-RADS 1: Negative RECOMMENDATION: Routine annual mammography screening. This patient's information was entered into a reminder system with a target due date for their next mammogram.
--- NOTE | ~2021-10-06 | MM_ITS ---
EXAMINATION: MM DIAGNOSTIC DIGITAL BREAST TOMOSYNTHESIS, BILATERAL Targeted left breast ultrasound CLINICAL INFORMATION: Left mastodynia lateral aspect The lifetime risk of breast cancer based on the Tyrer-Cuzick Model is 12.9%. COMPARISON: Mammography: September 04, 2014 and studies dating back to December 11, 2009 TECHNIQUE: Digital breast tomosynthesis is performed in both the craniocaudal and mediolateral oblique views along with computer-aided detection (CAD). Synthesized 2D images are generated from the tomosynthesis. Targeted left breast ultrasound FINDINGS: The breasts are heterogeneously dense, which may obscure small masses (ACR BI-RADS breast composition Category c). There are no significant masses, abnormal calcifications, or other abnormalities. Targeted left breast ultrasound did not demonstrate any abnormal cystic or solid mass. No region of abnormal distal sound shadowing appreciated. No edematous change tissues is present. No ductal abnormality is seen. Results are discussed with the patient at time of visit. MM/MM tomosynthesis diagnostic BI IMPRESSION: No mammographic evidence of malignancy. ASSESSMENT: BI-RADS 1: Negative RECOMMENDATION: Routine annual mammography screening. This patient's information was entered into a reminder system with a target due date for their next mammogram.
== END 2021-10-06 12:50 | disposition home or self-care (01) ==
LOC: HO.MAMMO 12:49
PROVIDERS: PCP Family Medicine; Visit Provider Family Medicine
DX: N64.4 Mastodynia (principal)
CPT/HCPCS: 76642; 77062; 77066

== ENCOUNTER 2021-10-07 13:14 | Outpatient (REF) | payer MEDICAID, SELFPAY ==
--- NOTE | ~2021-10-07 | US_ITS ---
EXAMINATION: US RETROPERITONEAL LIMITED (AORTA) CLINICAL INFORMATION: This is a 60-year-old female with peripheral vascular disease. History of right iliac stent and left femoral bypass. COMPARISON: Multiple previous studies. TECHNIQUE: Kelly-scale, color Doppler and spectral Doppler evaluation of the abdominal aorta. FINDINGS: There is diffuse atherosclerotic disease present. There is a right iliac stent present. The measurements of the aorta in maximum AP and transverse dimensions respectively are as follows: Proximal: 2.1 cm. Mid: 1.7 cm. Distal: 1.4 cm. PSV: 153 cm/s. This is seen distally. The measurements of the common iliac arteries in maximum AP and TRV dimensions are as follows: Right Common Iliac Artery: 113 cm/s in the common iliac artery. 128 cm/s in the external iliac artery. Left Common Iliac Artery: 129 cm/s in the common iliac artery. 115 cm/s in the external iliac artery. US/US abdominal aortic aneurysm IMPRESSION: 1. There is minimal increase in velocity in the distal abdominal aorta without evidence of hemodynamically significant stenosis in the aortoiliac segment. No aneurysm is seen EXAMINATION: NONINVASIVE ASSESSMENT OF THE ARTERIES OF THE LEFT LOWER EXTREMITY WITH LOWER EXTREMITY DUPLEX CLINICAL INFORMATION: Claudication TECHNIQUE: Ankle pulse volume recordings, ankle pressure measurements and ankle brachial indices were obtained of the lower extremity arterial system bilaterally in addition to duplex Doppler techniques with wave form analysis and measurement of velocities in the common femoral, profunda femoral, superficial femoral, popliteal and tibial arteries. The study was performed only at rest. COMPARISON: 11/11/2020 and 03/17/2021 FINDINGS: RIGHT LE. The right ankle-brachial index is: Could not be obtained because the patient could not tolerate compression. Previously, 0.48 * >0.97-1.25 = normal - no significant arterial disease * 0.75-0.96 = mild peripheral arterial disease * 0.5-0.74 = moderate peripheral arterial disease * <0.50 = severe peripheral arterial disease Right direct duplex Doppler findings: Common femoral artery: 177 cm/s and biphasic. Previously, 156 cm/sec; monophasic waveform Profunda artery: 194 cm/s and monophasic. Previously, 177 cm/sec; monophasic waveform Superficial femoral artery proximal: Occluded. Previously occluded. Superficial femoral artery mid portion: Occluded. Previously occluded. Superficial femoral artery distal: 55 cm/s and monophasic. Previously, Occluded Popliteal artery: 83 cm/s and monophasic. Previously, 68 cm/sec; monophasic waveform Posterior tibial artery: 39 cm/s and monophasic. Previously, 23 cm/sec; monophasic waveform LEFT LEG: The patient was unable to tolerate measurement of the left BEVERLEY. The patient was not previously able to tolerate the ankle-brachial index. Left direct duplex Doppler findings: Common femoral artery: 149 cm/s and triphasic. Previously, 114 cm/sec; multiphasic waveform Profunda artery: 108 cm/s and monophasic. Previously, 96 cm/sec; monophasic waveform Superficial femoral artery proximal: Occluded. Previously occluded. Superficial femoral artery mid portion: Occluded. Previously occluded. Superficial femoral artery distal: Occluded. Previously occluded. Popliteal artery: 152 cm/s and biphasic. Previously, 191 cm/sec; multiphasic waveform Posterior tibial artery: 74 cm/s and biphasic. Previously, 45 cm/sec; multiphasic waveform. The distal posterior tibial artery appears to be occluded. The bilateral brachial blood pressures were over [address] Aragon's office is aware. Left femoral-popliteal bypass graft: Inflow artery: 149 cm/s and triphasic. Previously, 114 cm/s; multiphasic Proximal anastomosis: 166 cm/s and triphasic. Previously, 268 cm/s; monophasic Proximal bypass graft: 215 cm/s and biphasic. Previously, 70 cm/s; multiphasic Mid bypass graft: 69 cm/s and biphasic. Previously, 45 cm/s, multiphasic Distal bypass graft: 63 cm/s and triphasic. Previously, 57 cm/s; multiphasic Distal anastomosis: 69 cm/s and biphasic. Previously, 46 cm/s; monophasic Outflow artery: 68 cm/s and triphasic. Previously, 133 cm/s; multiphasic The previous fluid collections in the groins are no longer apparent.. IMPRESSION: 1. The left femoral-popliteal bypass graft is patent. There is elevated velocity noted at the proximal bypass, again this suggesting possible stenosis. 2. The patient was unable to tolerate BEVERLEY measurement of the bilateral lower extremities. 3. 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
== END 2021-10-07 13:15 | disposition home or self-care (01) ==
LOC: HO.US 13:14
PROVIDERS: Visit Provider Surgery Vascular Surgery
DX: N83.292 Other ovarian cyst, left side (principal); I73.9 Peripheral vascular disease, unspecified
CPT/HCPCS: 76706; 93923; 93925

== ENCOUNTER → 2021-10-12 10:45 | Outpatient (BNVA) | payer MEDICAID, SELFPAY | PROVIDERS: PCP Family Medicine; Visit Provider Surgery Vascular Surgery | DX: I73.9 Peripheral vascular disease, unspecified (principal) | CPT/HCPCS: 99212 ==

== ENCOUNTER 2021-11-17 22:35 | Emergency (ER) | payer MEDICAID, SELFPAY ==
--- NOTE | ~2021-11-17 | XR_ITS ---
EXAMINATION: XR CHEST CLINICAL INFORMATION: Shortness of breath COMPARISON: 01/15/2021 TECHNIQUE: Frontal view of the chest was obtained. FINDINGS: The lungs are clear with no focal consolidation. Redemonstrated left lower lobe calcified granuloma. No evidence of pneumothorax, pulmonary edema, or pleural effusions. The cardiomediastinal silhouette is unremarkable. No acute osseous findings. XR/XR chest 1V IMPRESSION: No acute cardiopulmonary findings.
--- NOTE | 2021-11-17 12:30 | ECG_ITS ---
Test Reason : cp Blood Pressure : / mmHG Vent. Rate : 091 BPM Atrial Rate : 091 BPM P-R Int : 134 ms QRS Dur : 084 ms QT Int : 374 ms P-R-T Axes : 038 001 092 degrees QTc Int : 460 ms Normal sinus rhythm Minimal voltage criteria for LVH, may be normal variant ( R in aVL ) Abnormal QRS-T angle, consider primary T wave abnormality Abnormal ECG When compared with ECG of 21-SEP-2021 08:54, T wave amplitude has increased in Lateral leads Referred By: Antonio Braun Electronically Signed By:KARON SABA
[2021-11-17 22:49] VITALS: BP 113/51; BP 168/73; PULSE 112; PULSE 94; RESP 15; TEMP 36.7; O2SAT 97; BMI 27.3
--- NOTE | 2021-11-17 22:57 | ED_ITS ---
HPI - Chest Pain General Chief Complaint: Chest Pain Stated Complaint: Chest pain Time Seen by Provider: 11/17/21 22:41 Source: patient Mode of arrival: EMS Limitations: no limitations History of Present Illness HPI narrative: Patient 60 years old with history of diabetes, hypertension, coronary artery disease with 60-70% mid RCA stenosis, peripheral arterial disease with status post L femoral-popliteal bypass surgery and right common iliac stent comes here for increased shortness of breath with chest tightness just prior to arrival when EMS did patient's blood pressure was 221/117 with heart rate of 110 POC 340 EMS gave patient 324 mg of aspirin and 1 nitro blood pressure improved 113/51 on arrival patient's blood pressure was 168/73 patient feeling much better at this time still feeling slight chest tightness and shortness of breath Related Data Home Medications Medication Instructions Recorded Confirmed metformin 1,000 mg tablet 1,000 mg PO BID 12/22/19 05/07/21 aspirin 81 mg tablet,delayed 81 mg PO DAILY 01/02/20 05/07/21 release (Adult Low Dose Aspirin) atorvastatin 80 mg tablet (Lipitor) 80 mg PO BEDTIME 01/02/20 05/07/21 carvedilol 25 mg tablet (Coreg) 25 mg PO BID 01/02/20 05/07/21 escitalopram oxalate 20 mg tablet 20 mg PO DAILY 01/02/20 05/07/21 (Lexapro) gabapentin 800 mg tablet 800 mg PO TID 01/02/20 05/07/21 insulin degludec 100 unit/mL (3 10 unit subcut DAILY 01/02/20 05/07/21 mL) subcutaneous pen (Tresiba FlexTouch U-100 insulin) lisinopril 40 mg tablet 40 mg PO DAILY 01/02/20 05/07/21 mirtazapine 45 mg tablet 45 mg PO BEDTIME 01/02/20 05/07/21 multivitamin 1 tab PO DAILY 01/02/20 05/07/21 acetaminophen 650 mg 650 mg PO Q8H PRN Pain (Scale 01/16/21 05/07/21 tablet,extended release (Arthritis Score 1-3) Pain Relief (acetaminophen) ER) amlodipine 10 mg tablet 10 mg PO BEDTIME 01/16/21 05/07/21 docusate sodium 100 mg capsule 100 mg PO BID 01/16/21 05/07/21 fluticasone propionate 110 2 puff inhalation BID 01/16/21 05/07/21 mcg/actuation HFA aerosol inhaler (Flovent HFA) fluticasone propionate 50 2 spray intranasal DAILY 01/16/21 05/07/21 mcg/actuation nasal spray,suspension hydralazine 50 mg tablet 50 mg PO TID 01/16/21 05/07/21 lidocaine 5 % topical patch 1 patch topical DAILY 01/16/21 05/07/21 (Lidoderm) pantoprazole 40 mg tablet,delayed 40 mg PO BID@0630,1630 01/16/21 05/07/21 release (Protonix) blood sugar diagnostic (FreeStyle #10 ea 03/30/21 Lite Strips) clotrimazole 1 % topical cream 1 appl topical BID 03/30/21 05/07/21 amitriptyline 50 mg tablet 1 tab PO BEDTIME 05/07/21 05/07/21 oxycodone-acetaminophen 7.5 mg-325 1 tab PO Q6H PRN severe pain 05/07/21 05/07/21 mg tablet Previous Rx's Medication Instructions Recorded ferrous sulfate 325 mg (65 mg 325 mg PO BID #60 tabs 05/24/20 iron) tablet hydrochlorothiazide 25 mg tablet 25 mg PO DAILY #30 tabs 08/13/20 clopidogrel 75 mg tablet (Plavix) 75 mg PO DAILY #30 tabs 12/02/20 pioglitazone 15 mg tablet 15 mg PO DAILY 30 days #30 tabs 12/02/20 albuterol sulfate 2.5 mg/3 mL 2.5 mg (3 mL) inhalation Q4H PRN 01/19/21 (0.083 %) solution for nebulization shortness of breath/wheeze #100 mL tramadol 50 mg tablet 50 mg PO BID PRN pain #7 tabs 05/06/21 amoxicillin 875 mg-potassium 1 tab PO BID #20 tabs 05/09/21 clavulanate 125 mg tablet polyethylene glycol 3350 17 17 g PO DAILY #238 grams 07/12/21 gram/dose oral powder (Miralax) dulaglutide 0.75 mg/0.5 mL 0.75 mg (0.5 mL) subcut QWEEK 30 07/14/21 subcutaneous pen injector days #2.5 mL (Trulicity) lancets 33 gauge (TRUEplus Lancets) #100 ea 07/26/21 hydralazine 50 mg tablet 50 mg PO TID #3 tabs 09/21/21 cyclobenzaprine 10 mg tablet 10 mg PO TID #10 tabs 10/05/21 Allergies Allergy/AdvReac Type Severity Reaction Status Date / Time latex [LATEX] Allergy Unknown RASH Verified 10/12/21 10:49 naproxen [From NAPROSYN] Allergy Unknown TACHYCARDIA Verified 10/12/21 10:49 Review of Systems Review of Systems: Yes all other systems are reviewed and are negative [facility] Past Medical History Medical History Arthritis Asthma CAD (coronary artery disease) Cyst (solitary) of breast Diabetes H. pylori infection HLD (hyperlipidemia) HTN (hypertension) HTN (hypertension) Kidney calculi T2DM (type 2 diabetes mellitus) Vitamin D deficiency Surgical History History of breast surgery History of cardiac cath History of esophagogastroduodenoscopy (EGD) Hx of colonoscopy Family History Family History Mother Diabetes Liver cancer Social History Social History Household Members: Children and Friend(s) Housing: Apartment Do you presently have visiting nurse or other home services: No Alcohol intake: never Patient Tobacco Use Status: Current everyday Tobacco user Tobacco use type: Cigarette Cigarettes Per Day: 2 Years Smoked: 40 +/- e-Cigarette/Vaping Use: Never Used Second Hand Smoke Exposure: No Use of substances other than those prescribed or required for medical reasons: No Advance Directives: No Patient : No service: No Current occupational status: unemployed and disabled Physical Exam Vital Signs: Vital Signs: Last Vital Signs Temp 98.0 F 11/18/21 01:24 Pulse 88 11/18/21 01:24 Resp 16 11/18/21 01:24 BP 151/71 H 11/18/21 01:24 Pulse Ox 96 11/18/21 01:24 O2 Del Method 11/18/21 01:24 BMI result Body Mass Index 27.3 Appearance: Alert. Oriented X3. No acute distress. Eyes: PERRLA, No Nystagmus ENT: Pharynx normal. Oral Mucosa moist Neck: Normal inspection. Neck supple. CVS: Normal heart rate and rhythm. Pulses normal. Respiratory: No respiratory distress. Equal air entry bilateral, no wheezing/rales/rhonchi Abdomen: Soft and nontender. Bowel sounds are present, no mass palpable, no CVA tenderness Skin: Skin warm and dry. Normal skin color. Normal skin turgor. Extremities: No lower extremity edema. No calf tenderness Neuro: Oriented X 3. No motor deficit. No sensory deficit.No cerebellar signs , cranial nerves II-XII intact MDM - Chest Pain MDM Narrative Medical decision making narrative: Two sets of cardiac enzymes negative , EKG without any ischemic changes patient feeling much better now take her medications Medical Records Data Attestation: I reviewed the patient's medical records. Lab Data Attestation: I reviewed the patient's lab results. Result diagrams: 11/17/21 23:19 11/17/21 23:19 Labs: Lab Results 11/17/21 11/17/21 11/17/21 Range/Units 23:19 23:19 23:19 WBC 6.2 (4.8-10.8) X10*3/uL RBC 3.74 L (4.20-5.50) X10*6/uL Hgb 10.8 L (12.0-16.0) g/dl Hct 32.2 L (37.0-47.0) % MCV 86.1 (80.0-98.0) fL MCH 28.9 (27.0-33.0) pg MCHC 33.5 (31.0-35.0) g/dl RDW 13.9 (11.0-16.0) % Plt Count 265 (160-400) X10*3/uL MPV 9.2 L (9.4-12.3) fL Immature Gran % (Auto) 0.3 (0.0-0.4) % Neut % (Auto) 58.9 (45-73) % Lymph % (Auto) 28.2 (20-40) % Josephine % (Auto) 7.7 (2-11) % Eos % (Auto) 4.3 H (0-4) % Baso % (Auto) 0.6 (0-2) % Lymph # (Auto) 1.8 (1.2-4.9) X10*3/uL Josephine # (Auto) 0.5 (0.1-1.2) X10*3/uL Eos # (Auto) 0.3 (0.0-0.4) X10*3/uL Baso # (Auto) 0.0 (0.0-0.2) X10*3/uL Abs Immat Gran (auto) 0.02 (0.00-0.03) X10*3/uL Absolute Neuts (auto) 3.7 (2.0-8.3) x10*3/uL Absolute Nucleated RBC 0.000 (0.0-0.012) X10*3/uL Nucleated RBC % (auto) 0.0 (0.0-0.2) /100WBC PT 11.1 (10.0-13.1) SEC INR 1.0 (0.9-1.1) APTT (26.0-36.4) SEC Sodium (135-145) mmol/L Potassium (3.3-5.1) mmol/L Chloride (96-108) mmol/L Carbon Dioxide (22-29) mmol/L Anion Gap (12-20) BUN (9-16) mg/dL Creatinine (0.5-1.4) mg/dL Estim Creat Clear Calc Estimated GFR Random Glucose (60-115) mg/dL Calcium (8.4-10.2) mg/dL Magnesium (1.6-2.6) mg/dL Total Bilirubin (0.0-1.0) mg/dL AST (5-31) U/L ALT (0-31) U/L Alkaline Phosphatase (39-117) U/L Troponin I High Sens 4.6 (<3.5-17.0) ng/L Total Protein (6.5-8.0) g/dL Albumin (3.5-5.0) g/dL COVID-19 (RAMA) (Negative) COVID-19 Clin Com 11/17/21 11/17/21 11/17/21 Range/Units 23:19 23:19 23:19 WBC (4.8-10.8) X10*3/uL RBC (4.20-5.50) X10*6/uL Hgb (12.0-16.0) g/dl Hct (37.0-47.0) % MCV (80.0-98.0) fL MCH (27.0-33.0) pg MCHC (31.0-35.0) g/dl RDW (11.0-16.0) % Plt Count (160-400) X10*3/uL MPV (9.4-12.3) fL Immature Gran % (Auto) (0.0-0.4) % Neut % (Auto) (45-73) % Lymph % (Auto) (20-40) % Josephine % (Auto) (2-11) % Eos % (Auto) (0-4) % Baso % (Auto) (0-2) % Lymph # (Auto) (1.2-4.9) X10*3/uL Josephine # (Auto) (0.1-1.2) X10*3/uL Eos # (Auto) (0.0-0.4) X10*3/uL Baso # (Auto) (0.0-0.2) X10*3/uL Abs Immat Gran (auto) (0.00-0.03) X10*3/uL Absolute Neuts (auto) (2.0-8.3) x10*3/uL Absolute Nucleated RBC (0.0-0.012) X10*3/uL Nucleated RBC % (auto) (0.0-0.2) /100WBC PT (10.0-13.1) SEC INR (0.9-1.1) APTT 31.4 (26.0-36.4) SEC Sodium 137 (135-145) mmol/L Potassium 3.8 (3.3-5.1) mmol/L Chloride 101 (96-108) mmol/L Carbon Dioxide 25 (22-29) mmol/L Anion Gap 15 (12-20) BUN 17 H (9-16) mg/dL Creatinine 0.97 (0.5-1.4) mg/dL Estim Creat Clear Calc 51.9 Estimated GFR 59 Random Glucose 367 H* (60-115) mg/dL Calcium 8.5 D (8.4-10.2) mg/dL Magnesium 1.5 L (1.6-2.6) mg/dL Total Bilirubin 0.2 (0.0-1.0) mg/dL AST 9 (5-31) U/L ALT 6 (0-31) U/L Alkaline Phosphatase 88 (39-117) U/L Troponin I High Sens (<3.5-17.0) ng/L Total Protein 5.8 L (6.5-8.0) g/dL Albumin 3.5 (3.5-5.0) g/dL COVID-19 (RAMA) Negative (Negative) COVID-19 Clin Com See Note 11/18/21 Range/Units 01:37 WBC (4.8-10.8) X10*3/uL RBC (4.20-5.50) X10*6/uL Hgb (12.0-16.0) g/dl Hct (37.0-47.0) % MCV (80.0-98.0) fL MCH (27.0-33.0) pg MCHC (31.0-35.0) g/dl RDW (11.0-16.0) % Plt Count (160-400) X10*3/uL MPV (9.4-12.3) fL Immature Gran % (Auto) (0.0-0.4) % Neut % (Auto) (45-73) % Lymph % (Auto) (20-40) % Josephine % (Auto) (2-11) % Eos % (Auto) (0-4) % Baso % (Auto) (0-2) % Lymph # (Auto) (1.2-4.9) X10*3/uL Josephine # (Auto) (0.1-1.2) X10*3/uL Eos # (Auto) (0.0-0.4) X10*3/uL Baso # (Auto) (0.0-0.2) X10*3/uL Abs Immat Gran (auto) (0.00-0.03) X10*3/uL Absolute Neuts (auto) (2.0-8.3) x10*3/uL Absolute Nucleated RBC (0.0-0.012) X10*3/uL Nucleated RBC % (auto) (0.0-0.2) /100WBC PT (10.0-13.1) SEC INR (0.9-1.1) APTT (26.0-36.4) SEC Sodium (135-145) mmol/L Potassium (3.3-5.1) mmol/L Chloride (96-108) mmol/L Carbon Dioxide (22-29) mmol/L Anion Gap (12-20) BUN (9-16) mg/dL Creatinine (0.5-1.4) mg/dL Estim Creat Clear Calc Estimated GFR Random Glucose (60-115) mg/dL Calcium (8.4-10.2) mg/dL Magnesium (1.6-2.6) mg/dL Total Bilirubin (0.0-1.0) mg/dL AST (5-31) U/L ALT (0-31) U/L Alkaline Phosphatase (39-117) U/L Troponin I High Sens 9.3 D (<3.5-17.0) ng/L Total Protein (6.5-8.0) g/dL Albumin (3.5-5.0) g/dL COVID-19 (RAMA) (Negative) COVID-19 Clin Com ECG Data ECG #1: Attestation: I personally reviewed and interpreted this ECG as follows: Interpretation: Normal sinus rhythm heart rate 91 beats per minute LVH no acute ST T wave changes no acute ischemia Discharge Plan Discharge Clinical Impression: Chest pressure, Hypertension, Uncontrolled diabetes mellitus Patient Disposition: Home, Self-Care Instructions: Chest Pain (ED), Hypertension (ED), Diabetic Hyperglycemia (ED) Additional Instructions: Take medication as prescribed and follow with PCP/nursing scheduler Check her blood sugar and blood pressure routinely [place] los medicamentos seg?n lo prescrito y siga con el PCP/cardi?logo Controle weaver nivel de az?car en la garo y la presi?n arterial de forma rutinaria Prescriptions: No Action hydrochlorothiazide 25 mg tablet 25 mg PO DAILY Qty: 30 0RF Rx Instructions: Must call to schedule a cardiology appointment for more refills - overdue pioglitazone 15 mg tablet 15 mg PO DAILY 30 Days Qty: 30 11RF Trulicity 0.75 mg/0.5 mL pen injector 0.75 mg subcut QWEEK 30 Days Qty: 2.5 3RF (DME) lancets [TRUEplus Lancets] 33 gauge misc See Rx Instructions .Route Qty: 100 11RF Rx Instructions: 4x daily metformin 1,000 mg Tablet 1,000 mg PO BID ferrous sulfate 325 mg (65 mg iron) tablet 325 mg PO BID Qty: 60 0RF clopidogrel [Plavix] 75 mg tablet 75 mg PO DAILY Qty: 30 5RF polyethylene glycol 3350 [Miralax] 17 gram/dose powder 17 g PO DAILY Qty: 238 0RF amlodipine 10 mg Tablet 10 mg PO BEDTIME docusate sodium 100 mg Capsule 100 mg PO BID hydralazine 50 mg Tablet 50 mg PO TID pantoprazole [Protonix] 40 mg tablet,delayed release (DR/EC) 40 mg PO BID@0630,1630 lidocaine [Lidoderm] 5 % Adhesive Patch,Medicated 1 patch TOPICAL DAILY fluticasone propionate 50 mcg/actuation [place],Suspension 2 spray INTRANASAL DAILY acetaminophen [Arthritis Pain Relief (acetam)] 650 mg Tablet Extended Release 650 mg PO Q8H PRN (Reason: Pain (Scale Score 1-3)) Flovent HFA 110 mcg/actuation Hfa Aerosol Inhaler 2 puff INHALATION BID albuterol sulfate 2.5 mg /3 mL (0.083 %) Solution For Nebulization 2.5 mg inhalation Q4H PRN (Reason: shortness of breath/wheeze) Qty: 100 0RF tramadol 50 mg tablet 50 mg PO BID PRN (Reason: pain) Qty: 7 0RF amitriptyline 50 mg tablet 1 tab PO BEDTIME oxycodone-acetaminophen 7.5-325 mg tablet 1 tab PO Q6H PRN (Reason: severe pain) amoxicillin-pot clavulanate 875-125 mg tablet 1 tab PO BID Qty: 20 0RF hydralazine 50 mg tablet 50 mg PO TID Qty: 3 0RF cyclobenzaprine 10 mg tablet 10 mg PO TID Qty: 10 0RF carvedilol [Coreg] 25 mg tablet 25 mg PO BID Rx Instructions: must administer with a meal/food multivitamin Tablet 1 tab PO DAILY lisinopril 40 mg tablet 40 mg PO DAILY gabapentin 800 mg tablet 800 mg PO TID aspirin [Adult Low Dose Aspirin] 81 mg tablet,delayed release (DR/EC) 81 mg PO DAILY escitalopram oxalate [Lexapro] 20 mg tablet 20 mg PO DAILY mirtazapine 45 mg tablet 45 mg PO BEDTIME atorvastatin [Lipitor] 80 mg tablet 80 mg PO BEDTIME Tresiba FlexTouch U-100 100 unit/mL (3 mL) insulin pen 10 unit subcut DAILY (DME) FreeStyle Lite Strips Strip See Rx Instructions Not Applicable QID Qty: 10 Rx Instructions: As directed clotrimazole 1 % cream 1 appl topical BID Interventions: ED Discharge Assessment Last Done: 11/18/21 03:14 Discharge Date/Time: 11/18/21 02:46 Print Language: Ukrainian
[2021-11-17 22:58] VITALS: PULSE 92
[2021-11-17] MEDS: Nitroglycerin 2 % Oint 1 GM Packet 1 INCH TRANSDERMA (23:13)
--- OUTSIDE RECORDS SUMMARY | 2021-11-17 23:18 | XMS_ITS | Continuity of Care Document ---
:1960 Author Organization [address], [address] [place] [address]- Care Team Providers Name Role Phone Radha Jamison DO Primary Care Physician Encounter [facility] Date(s): 01/16/19 - 01/23/[address], [address] [place] [address]- [facility] Attending Physician: Benjy FELIPE, Santo Burnett Referring Physician: Radha Jamison DO Medications Acetaminophen 0 Refills, Maintenance, 01/16/19 14:19:40 EST Start Date: 01/16/19 Status: OrderedActos 45 mg oral tablet 1 tablet = 45 mg, By Mouth, Daily, 0 Refills, Maintenance, 03/08/15 23:31:28 Start Date: 03/08/15 Status: OrderedAlbuterol 90 mcg Inhaler 1, puffs, Inhalation, Every 4 hours, PRN, Maintenance, 03/08/15 23:23:41 Start Date: 03/08/15 Status: OrderedamiTRIPTYLINE By Mouth, Daily at bedtime, 0 Refills, Maintenance, 01/16/19 14:19:22 EST Start Date: 01/16/19 Status: OrderedAmlodipine 10 mg, By Mouth, Daily, Maintenance, 03/08/15 23:24:17 Start Date: 03/08/15 Status: OrderedAspirin = 81 mg, By Mouth, Daily, 0 Refills, Maintenance, 03/08/15 23:24:30 Start Date: 03/08/15 Status: OrderedAtorvastatin 80 mg, By Mouth, Daily at bedtime, Maintenance, 03/08/15 23:24:53 Start Date: 03/08/15 Status: OrderedBaclofen By Mouth, 3 times a day, 0 Refills, Maintenance, 01/16/19 14:19:29 EST Start Date: 01/16/19 Status: OrderedColace sodium 100 mg oral capsule 100 mg, 1, capsule, By Mouth, 2 times a day, Refills 0, Maintenance, 01/16/19 14:19:14 EST Start Date: 01/16/19 Status: OrderedCoreg By Mouth, 2 times a day, Refills 0, Maintenance, 01/16/19 14:17:19 EST Start Date: 01/16/19 Status: OrderedCyclobenzaprine By Mouth, 0 Refills, Maintenance, 01/16/19 14:18:32 EST Start Date: 01/16/19 Status: OrderedDocusate = 100 mg, By Mouth, 2 times a day, 0 Refills, Maintenance, 03/08/15 23:26:17 Start Date: 03/08/15 Status: Orderedergocalciferol 93051 iu oral capsule 1 capsule = 50,000 International_Units, By Mouth, Every 7 days, 0 Refills, Maintenance, 03/08/15 23:26:52 Start Date: 03/08/15 Status: OrderedFerrous Sulfate = 325 mg, By Mouth, 3 times a day, 0 Refills, Maintenance, 03/08/15 23:27:32 Start Date: 03/08/15 Status: OrderedFluticasone 110 mcg Inhaler HFA 1, puffs, Inhalation, 2 times a day, Maintenance, 03/08/15 23:28:25 Start Date: 03/08/15 Status: Orderedgabapentin 100 mg oral capsule 100 mg, 1, capsule, By Mouth, 3 times a day, # 90 capsule, Refills 0, Tot. Refills 0, Maintenance, 03/28/18 11:37:08 EST, Print Requisition Start Date: 03/28/18 Stop Date: 04/27/18 Status: OrderedHydrALAZINE 0 Refills, Maintenance, 01/16/19 14:18:43 EST Start Date: 01/16/19 Status: OrderedHydrOXYzine = 50 mg, By Mouth, Daily at bedtime, 0 Refills, Maintenance, 03/08/15 23:28:58 Start Date: 03/08/15 Status: Orderedinsulin glargine 100 u/ml subcutaneous solution = 68 units, Subcutaneous Injection, Daily at bedtime, 0 Refills, Maintenance, 03/10/15 9:43:07, Injection Start Date: 03/10/15 Status: OrderedLidocaine IV Infusion, Once, 0 Refills, Maintenance, 01/16/19 14:18:55 EST Start Date: 01/16/19 Status: OrderedLisinopril = 40 mg, By Mouth, Daily, 0 Refills, Maintenance, 03/08/15 23:29:28 Start Date: 03/08/15 Status: OrderedLoratadine 10 mg, By Mouth, Daily, PRN, Maintenance, Other, 03/08/15 23:29:42 Start Date: 03/08/15 Status: OrderedMetformin = 1,000 mg, By Mouth, 2 times a day, 0 Refills, Maintenance, 03/08/15 23:30:15 Start Date: 03/08/15 Status: OrderedMirtazapine = 30 mg, By Mouth, Daily at bedtime, 0 Refills, Maintenance, 03/08/15 23:30:51 Start Date: 03/08/15 Status: OrderedMultivitamin Daily, 0 Refills, Maintenance, 01/16/19 14:18:11 EST Start Date: 01/16/19 Status: OrderedNaprosyn 500 mg oral tablet 1 tablet = 500 mg, By Mouth, 2 times a day, 0 Refills, Maintenance, 01/16/19 14:18:02 EST Start Date: 01/16/19 Status: OrderedNitroglycerin 0 Refills, Maintenance, 01/16/19 14:18:22 EST Start Date: 01/16/19 Status: OrderedOxycodone By Mouth, 0 Refills, Maintenance, 01/16/19 14:19:34 EST, Partial fill upon patient request Start Date: 01/16/19 Status: OrderedPantoprazole = 40 mg, By Mouth, Daily, 0 Refills, Maintenance, 03/08/15 23:31:06 Start Date: 03/08/15 Status: OrderedPropranolol 40 mg, By Mouth, Daily, Maintenance, 03/08/15 23:31:39 Start Date: 03/08/15 Status: OrderedtraZODone 150 mg oral tablet 1 tablet = 150 mg, By Mouth, Daily at bedtime, 0 Refills, Maintenance, 03/08/15 23:32:02 Start Date: 03/08/15 Status: OrderedTresiba Start Date: 01/16/19 Status: OrderedTrulicity Pen Subcutaneous Infusion, 0 Refills, Maintenance, 01/16/19 14:17:51 EST Start Date: 01/16/19 Status: OrderedVitamin D 76154 iu oral capsule 50,000 International_Units, 1, capsule, By Mouth, Every week, Refills 0, Maintenance, 09/21/16 8:17:56 Start Date: 09/21/16 Status: Ordered Vital Signs Most recent to oldest [Reference Range]: 1 Height 150.5 cm (01/16/19 1:50 PM) Weight 63.5 kg (01/16/19 1:50 PM) Body Mass Index [18.5-24.99] 28.04 *H* (01/16/19 1:50 PM) Social History Social History Type Response Smoking Status Current every day smoker entered on: 11/08/17 Sex
--- OUTSIDE RECORDS SUMMARY | 2021-11-17 23:19 | XMS_ITS | Continuity of Care Document ---
:1960 Author Organization [address], [address] [place] [address]- Care Team Providers Name Role Phone Radha Jamison DO Primary Care Physician Encounter [facility] Date(s): 01/16/19 - 01/26/[address], [address] [place] [address]- [facility] Attending Physician: Sommer Marks Admitting Physician: Sommer Marks Referring Physician: AdmSommer salas Medications Acetaminophen 0 Refills, Maintenance, 01/16/19 14:19:40 [...] 03/08/15 23:26:17 Start Date: 03/08/15 Status: Orderedergocalciferol 97291 iu oral capsule 1 capsule = 50,000 [...] EST Start Date: 01/16/19 Status: OrderedVitamin D 61038 iu oral capsule 50,000 International_Units, 1, capsule, By Mouth, Every week, Refills 0, Maintenance, 09/21/16 8:17:56 Start Date: 09/21/16 Status: Ordered Social History Social History Type Response Smoking Status Current every day smoker entered on: 11/08/17 Sex
--- OUTSIDE RECORDS SUMMARY | 2021-11-17 23:19 | XMS_ITS | Continuity of Care Document ---
:1960 Author Organization [facility] Address [address] [place] [id number]- Care Team Providers Name Role Phone Radha Jamison DO Primary Care Physician Encounter [facility] [id number] Date(s): 02/01/19 - 02/11/19 [facility] [address] [place] [address]- [facility] Attending Physician: Sommer Marks Admitting Physician: Sommer Marks Referring Physician: Sommer Marks Medications Acetaminophen 0 Refills, Maintenance, 01/16/19 14:19:40 [...] 03/08/15 23:26:17 Start Date: 03/08/15 Status: Orderedergocalciferol 12596 iu oral capsule 1 capsule = 50,000 [...] EST Start Date: 01/16/19 Status: OrderedVitamin D 57951 iu oral capsule 50,000 International_Units, 1, capsule, By Mouth, Every week, Refills 0, Maintenance, 09/21/16 8:17:56 Start Date: 09/21/16 Status: Ordered Social History Social History Type Response Smoking Status Current every day smoker entered on: 11/08/17 Sex
[2021-11-17 23:26] LABS: Basophils Percent Auto 0.6 % (0-2); Eosinophils Absolute Auto 0.3 X10*3/uL (0.0-0.4); Eosinophils Percent Auto 4.3 % (0-4); Hematocrit 32.2 % (37.0-47.0); Hemoglobin 10.8 g/dl (12.0-16.0); Imm Gran Abs Auto 0.02 X10*3/uL (0.00-0.03); Imm Gran Pct Auto 0.3 % (0.0-0.4); Lymphocytes Absolute Auto 1.8 X10*3/uL (1.2-4.9); Lymphocytes Percent Auto 28.2 % (20-40); MANUAL DIFF FLAG NO; Mean Corpuscular HGB Conc 33.5 g/dl (31.0-35.0); Mean Corpuscular Hemoglobin 28.9 pg (27.0-33.0); Mean Corpuscular Volume 86.1 fL (80.0-98.0); Mean Platelet Volume 9.2 fL (9.4-12.3); Monocytes Absolute Auto 0.5 X10*3/uL (0.1-1.2); Monocytes Percent Auto 7.7 % (2-11); Neutrophils Absolute Auto 3.7 x10*3/uL (2.0-8.3); Neutrophils Percent Auto 58.9 % (45-73); Platelet Count 265 X10*3/uL (160-400); Red Blood Count 3.74 X10*6/uL (4.20-5.50); Red Cell Distribution Width 13.9 % (11.0-16.0); White Blood Count 6.2 X10*3/uL (4.8-10.8)
[2021-11-17 23:33] LABS: Prothrombin Time 11.1 SEC (10.0-13.1)
[2021-11-17 23:36] LABS: Partial Thromboplastin Time 31.4 SEC (26.0-36.4)
[2021-11-17 23:38] LABS: COVID-19 Test Negative (Negative)
[2021-11-17 23:46] LABS: Troponin-I High Sensitivity 4.6 ng/L (<3.5-17.0)
[2021-11-17 23:52] LABS: Alanine Aminotransferase 6 U/L (0-31); Albumin Level 3.5 g/dL (3.5-5.0); Alkaline Phosphatase 88 U/L (39-117); Anion Gap 15 (12-20); Aspartate Amino Transferase 9 U/L (5-31); Bilirubin Total 0.2 mg/dL (0.0-1.0); Blood Urea Nitrogen 17 mg/dL (9-16); Calcium 8.5 mg/dL (8.4-10.2); Carbon Dioxide 25 mmol/L (22-29); Chloride 101 mmol/L (96-108); Creatinine Clr Calc Pharmacy 51.9; Estimated Glomerular Filt Rate 59; Glucose Random 367 mg/dL (60-115); Magnesium 1.5 mg/dL (1.6-2.6); Potassium 3.8 mmol/L (3.3-5.1); Sodium 137 mmol/L (135-145); Total Protein 5.8 g/dL (6.5-8.0)
[2021-11-17 23:56] VITALS: BP 180/85; PULSE 85; RESP 16; TEMP 37.2; O2SAT 98
[2021-11-18 01:03] VITALS: BP 159/61; PULSE 86; RESP 21; TEMP 36.9; O2SAT 94
[2021-11-18 01:24] VITALS: BP 151/71; PULSE 88; RESP 16; TEMP 36.7; O2SAT 96
--- NOTE | 2021-11-18 01:25 | PC.NURSE ---
Pt aox4. Resting at the bedside. No cough noted. Breathing is even and unlabored. NSR on monitor with HR 87. Pt reports no pain at this time. Will continue to monitor.
[2021-11-18] MEDS: Magnesium Sulfate/H2O 2 GM/50 ML PIGGYBACK IV (01:28)
[2021-11-18] MEDS: Insulin Lispro 100 UNIT/ML 3 ML VIAL 12 UNIT SUBCUT (01:28)
[2021-11-18 02:12] LABS: Troponin-I High Sensitivity 9.3 ng/L (<3.5-17.0)
--- NOTE | 2021-11-18 02:44 | PC.NURSE ---
Pt aox3. Breaths are even and unlabored. Skin is warm pink and dry. Denies SI/HI. Denies substance use and refuses detox referral at this time. Discharge instructions provided to pt. Pt verbalizes understanding.
--- NOTE | 2021-11-18 03:13 | PC.NURSE ---
Pt aox4. Breaths are even and unlabored. Skin is warm pink and dry. Pt reports no pain at this time. No apparent distress noted. Discharge instructions provided. Pt verbalizes understanding.
== END 2021-11-18 02:46 | disposition home or self-care (01) ==
PROVIDERS: Emergency Provider Internal Medicine; PCP Family Medicine
DX: R07.89 Other chest pain (principal); R06.02 Shortness of breath; E11.65 Type 2 diabetes mellitus with hyperglycemia; I10 Essential (primary) hypertension; Z20.822 Contact with and (suspected) exposure to COVID-19; F17.210 Nicotine dependence, cigarettes, uncomplicated; Z79.899 Other long term (current) drug therapy; Z71.6 Tobacco abuse counseling
CPT/HCPCS: 36415; 71045; 80053; 83735; 84484; 85025; 85610; 85730; 87635; 93005; 96365; 99284; J3475

== ENCOUNTER 2021-11-26 23:01 | Emergency (ER) | payer MEDICAID, SELFPAY ==
--- NOTE | ~2021-11-26 | XR_ITS ---
EXAMINATION: XR CHEST CLINICAL INFORMATION: Chest pain COMPARISON: Chest x-ray 11/17/2021 TECHNIQUE: Frontal oral view of the chest was obtained. 11:19 PM FINDINGS: No significant abnormality is noted involving the heart, lungs, mediastinum, bony thorax or soft tissues. XR/XR chest 1V IMPRESSION: Unremarkable examination.
[2021-11-26 23:05] VITALS: BP 200/98; PULSE 104; O2SAT 99
[2021-11-26 23:07] VITALS: BP 206/77; PULSE 93; RESP 22; TEMP 36.8; O2SAT 98; BMI 26.6
--- NOTE | 2021-11-26 23:14 | ECG_ITS ---
Test Reason : CHEST PAIN Blood Pressure : / mmHG Vent. Rate : 095 BPM Atrial Rate : 095 BPM P-R Int : 140 ms QRS Dur : 082 ms QT Int : 366 ms P-R-T Axes : 041 005 090 degrees QTc Int : 459 ms Normal sinus rhythm Nonspecific ST and T wave abnormality Abnormal ECG When compared with ECG of 17-NOV-2021 22:57, No significant change was found Referred By: Henry Altman Electronically Signed By:SOPHIA STEWARD MD
[2021-11-26 23:16] VITALS: BP 197/82; PULSE 91; RESP 22; O2SAT 98
[2021-11-26 23:21] LABS: Glucose, Whole Blood 273 mg/dL (60-115)
[2021-11-26 23:26] LABS: MANUAL DIFF FLAG NO
[2021-11-26 23:27] LABS: Basophils Percent Auto 0.5 % (0-2); Eosinophils Absolute Auto 0.2 X10*3/uL (0.0-0.4); Eosinophils Percent Auto 3.1 % (0-4); Hematocrit 35.4 % (37.0-47.0); Hemoglobin 11.7 g/dl (12.0-16.0); Imm Gran Abs Auto 0.02 X10*3/uL (0.00-0.03); Imm Gran Pct Auto 0.3 % (0.0-0.4); Lymphocytes Absolute Auto 1.7 X10*3/uL (1.2-4.9); Lymphocytes Percent Auto 21.9 % (20-40); Mean Corpuscular HGB Conc 33.1 g/dl (31.0-35.0); Mean Corpuscular Hemoglobin 29.3 pg (27.0-33.0); Mean Corpuscular Volume 88.7 fL (80.0-98.0); Mean Platelet Volume 9.2 fL (9.4-12.3); Monocytes Absolute Auto 0.5 X10*3/uL (0.1-1.2); Monocytes Percent Auto 6.5 % (2-11); Neutrophils Absolute Auto 5.2 x10*3/uL (2.0-8.3); Neutrophils Percent Auto 67.7 % (45-73); Platelet Count 310 X10*3/uL (160-400); Red Blood Count 3.99 X10*6/uL (4.20-5.50); Red Cell Distribution Width 13.6 % (11.0-16.0); White Blood Count 7.7 X10*3/uL (4.8-10.8)
[2021-11-26 23:46] LABS: Troponin-I High Sensitivity 7.5 ng/L (<3.5-17.0)
--- NOTE | 2021-11-26 23:49 | ED_ITS ---
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 Patient states that she took a shower at 22:00 hours. While she was in the shower she developed a burning sensation in her chest. She points to her mid sternum when asked to localize the pain. She states that since onset the pain is been intermittent, 7/10 at its worst. She did have associated left jaw pain with no arm pain or back pain. She states she also has a headache which she describes as a diffuse, dull ache which is 5/10 at its worst. The patient did take her blood pressure at home and it was 215/115. She states she has had similar episodes in the past and was last seen here on 11/17/2021 for chest pain and elevated blood pressure with a negative workup. She states she gets this pain 2 times a week. She states that when she gets the pain she feels very anxious. MD complaint: chest pain Pertinent past history: coronary artery disease and other (Peripheral artery di sease) Onset (ago): minute(s) (45) Timing of current episode: episodic Prior episodes: Yes (2 times per week, 11/17/2021 seen in the ED) Onset: other (While taking a shower) Pain location: other (Mid sternum) Pain radiation: jaw/teeth (Left wrist) Severity: moderate Pain scale (0-10): 7 Quality: burning Relieving factors: nothing Exacerbating factors: palpation Associated symptoms: other (Headache) Treatment prior to arrival: none Risk Factors Coronary artery disease risk factors: smoking history, hyperlipidemia and hypertension Related Data Home Medications Medication Instructions Recorded Confirmed metformin 1,000 mg tablet 1,000 mg PO BID 12/22/19 05/07/21 aspirin 81 mg tablet,delayed 81 mg PO DAILY 01/02/20 05/07/21 release (Adult Low Dose Aspirin) atorvastatin 80 mg tablet (Lipitor) 80 mg PO BEDTIME 01/02/20 05/07/21 carvedilol 25 mg tablet (Coreg) 25 mg PO BID 01/02/20 05/07/21 escitalopram oxalate 20 mg tablet 20 mg PO DAILY 01/02/20 05/07/21 (Lexapro) gabapentin 800 mg tablet 800 mg PO TID 01/02/20 05/07/21 insulin degludec 100 unit/mL (3 10 unit subcut DAILY 01/02/20 05/07/21 mL) subcutaneous pen (Tresiba FlexTouch U-100 insulin) lisinopril 40 mg tablet 40 mg PO DAILY 01/02/20 05/07/21 mirtazapine 45 mg tablet 45 mg PO BEDTIME 01/02/20 05/07/21 multivitamin 1 tab PO DAILY 01/02/20 05/07/21 acetaminophen 650 mg 650 mg PO Q8H PRN Pain (Scale 01/16/21 05/07/21 tablet,extended release (Arthritis Score 1-3) Pain Relief (acetaminophen) ER) amlodipine 10 mg tablet 10 mg PO BEDTIME 01/16/21 05/07/21 docusate sodium 100 mg capsule 100 mg PO BID 01/16/21 05/07/21 fluticasone propionate 110 2 puff inhalation BID 01/16/21 05/07/21 mcg/actuation HFA aerosol inhaler (Flovent HFA) fluticasone propionate 50 2 spray intranasal DAILY 01/16/21 05/07/21 mcg/actuation nasal spray,suspension hydralazine 50 mg tablet 50 mg PO TID 01/16/21 05/07/21 lidocaine 5 % topical patch 1 patch topical DAILY 01/16/21 05/07/21 (Lidoderm) pantoprazole 40 mg tablet,delayed 40 mg PO BID@0630,1630 01/16/21 05/07/21 release (Protonix) blood sugar diagnostic (FreeStyle #10 ea 03/30/21 Lite Strips) clotrimazole 1 % topical cream 1 appl topical BID 03/30/21 05/07/21 amitriptyline 50 mg tablet 1 tab PO BEDTIME 05/07/21 05/07/21 oxycodone-acetaminophen 7.5 mg-325 1 tab PO Q6H PRN severe pain 05/07/21 05/07/21 mg tablet Previous Rx's Medication Instructions Recorded ferrous sulfate 325 mg (65 mg 325 mg PO BID #60 tabs 05/24/20 iron) tablet hydrochlorothiazide 25 mg tablet 25 mg PO DAILY #30 tabs 08/13/20 clopidogrel 75 mg tablet (Plavix) 75 mg PO DAILY #30 tabs 12/02/20 pioglitazone 15 mg tablet 15 mg PO DAILY 30 days #30 tabs 12/02/20 albuterol sulfate 2.5 mg/3 mL 2.5 mg (3 mL) inhalation Q4H PRN 01/19/21 (0.083 %) solution for nebulization shortness of breath/wheeze #100 mL tramadol 50 mg tablet 50 mg PO BID PRN pain #7 tabs 05/06/21 amoxicillin 875 mg-potassium 1 tab PO BID #20 tabs 05/09/21 clavulanate 125 mg tablet polyethylene glycol 3350 17 17 g PO DAILY #238 grams 07/12/21 gram/dose oral powder (Miralax) dulaglutide 0.75 mg/0.5 mL 0.75 mg (0.5 mL) subcut QWEEK 30 07/14/21 subcutaneous pen injector days #2.5 mL (Trulicity) lancets 33 gauge (TRUEplus Lancets) #100 ea 07/26/21 hydralazine 50 mg tablet 50 mg PO TID #3 tabs 09/21/21 cyclobenzaprine 10 mg tablet 10 mg PO TID #10 tabs 10/05/21 Allergies Allergy/AdvReac Type Severity Reaction Status Date / Time latex [LATEX] Allergy Unknown RASH Verified 10/12/21 10:49 naproxen [From NAPROSYN] Allergy Unknown TACHYCARDIA Verified 10/12/21 10:49 Review of Systems Review of Systems: Yes all other systems are reviewed and are negative COUNTS INCLUDE 234 BEDS AT THE [facility] Past Medical History COUNTS INCLUDE 234 BEDS AT THE [facility] Narrative: Social history: Patient states that she has cut down her tobacco use and smokes 1 cigarette per day. She has smoked for 44 years. She denies alcohol use. She denies drug use. Medical History Arthritis Asthma CAD (coronary artery disease) Cyst (solitary) of breast Diabetes H. pylori infection HLD (hyperlipidemia) HTN (hypertension) HTN (hypertension) Kidney calculi T2DM (type 2 diabetes mellitus) Vitamin D deficiency Surgical History History of breast surgery History of cardiac cath History of esophagogastroduodenoscopy (EGD) Hx of colonoscopy Family History Family History Mother Diabetes Liver cancer Social History Social History Household Members: Children and Friend(s) Housing: Apartment Do you presently have visiting nurse or other home services: No Alcohol intake: never Patient Tobacco Use Status: Current everyday Tobacco user Tobacco use type: Cigarette Cigarettes Per Day: 2 Years Smoked: 40 +/- e-Cigarette/Vaping Use: Never Used Second Hand Smoke Exposure: No Advance Directives: No Advance Directives Information Provided: Yes service: No Current occupational status: unemployed and disabled Physical Exam Vital Signs: Vital Signs: Last Vital Signs Temp 98.3 F 11/26/21 23:07 Pulse 97 11/27/21 01:55 Resp 17 11/27/21 01:55 BP 186/57 H 11/27/21 01:55 Pulse Ox 98 11/27/21 00:01 O2 Del Method 11/27/21 00:01 BMI result Body Mass Index 26.6 Const: Other: Awake, alert, female patient, she does appear to be anxious, she is very pleasant cooperative, answers all questions appropriately HEENT: Head: Yes normal to inspection, Yes normocephalic and Yes atraumatic Ears: external ears normal General nose exam: Normal external nose present Face and sinus: Yes normal facial exam Mouth: Normal oral and palatal mucosa present Throat: Yes posterior oropharynx normal Eyes: General: appearance normal, both eyes and all related structures Pupils: Equal, round and reactive pupils present Neck: Neck: Yes normal visual inspection, Yes no lymphadenopathy, Yes trachea midline and Yes supple Chest: Chest palpation & inspection: normal inspection of the chest and tenderness (Sternal and anterior chest wall tenderness, moderate) Resp: Effort & Inspection: normal respiratory effort and able to speak in complete sentences Auscultation: clear to auscultation bilaterally Cardio: Rate: regular rate Rhythm: regular rhythm Heart sounds: S1 normal heart sound present, S2 normal heart sound present and no murmurs GI: Inspection: Yes normal to inspection Palpation (GI): Soft to palpation, nontender and no guarding Auscultation: normal bowel sounds : General: Yes no CVA tenderness Back/Spine/Pelvis: Back: no CVA tenderness Skin: General skin exam: no rashes or lesions noted Neuro: Cranial nerves: Yes CN's II-XII intact bilaterally and Yes Equal, round and reactive pupils present Cognition (Neuro): normal cognition Motor exam (neuro): 5/5 motor strength present throughout Extrem: General: Yes normal to inspection Psych: Appearance: grossly normal Speech and movement: Normal speech and movement present Affect: normal affect Attitude: cooperative Thought process: Normal thought process present Thought content: Normal thought content present Course Course Course Narrative: 60-year-old female who presents emergency department for evaluation of sternal chest burning which occurred while she was taking shower, approximately 45 minutes prior to coming to the emergency department. She states that the discomfort is intermittent, she has had similar discomfort in the past. She was seen here recently on 11/17/2021 with a negative workup with 2- troponins. Patient does have significant cardiac risk factors including diabetes mellitus, hypertension, hyperlipidemia, coronary artery disease and peripheral arterial disease. She continues to smoke. Vital signs did reveal an elevated blood pressure of 206/77, elevated respiratory 22 otherwise unremarkable. Physical examination did reveal chest wall tenderness. I did order a cardiac workup to include CBC, CMP, troponin, EKG and chest x-ray. Patient was ordered to get Ativan 2 mg orally for anxiety and Toradol 15 mg IV for her chest wall pain. Twelve EKG revealed no acute ST segment elevation or depression. 0141: The patient states that her chest pain is improved however her headache is unchanged patient's laboratory evaluation was unremarkable. The patient's 1st troponin was detectable but not elevated at 7.5. The patient's 3 hour troponin is due at 02:15 hours. I did order morphine 4 mg IV and Zofran 4 mg IV for her headache. 0302: Patient's repeat troponin 11 which is detectable but still below the normal limit 11 and does not need to be 50% delta criteria. Patient states her chest pain is resolved but she still is having headache despite the above treatment. She was given a 2nd dose of morphine 4 mg IV. The patient's blood pressure has improved and I do not think that her headache is related to her blood pressure. The patient was discharged in given printed and verbal instructions advised to follow-up with her PCP. MDM - Chest Pain Medical Records Data Attestation: I reviewed the patient's medical records. Lab Data Attestation: I reviewed the patient's lab results. Result diagrams: 11/26/21 23:20 11/26/21 23:19 Labs: Lab Results 11/26/21 11/26/21 11/26/21 Range/Units 23:13 23:19 23:20 WBC 7.7 (4.8-10.8) X10*3/uL RBC 3.99 L (4.20-5.50) X10*6/uL Hgb 11.7 L (12.0-16.0) g/dl Hct 35.4 L (37.0-47.0) % MCV 88.7 (80.0-98.0) fL MCH 29.3 (27.0-33.0) pg MCHC 33.1 (31.0-35.0) g/dl RDW 13.6 (11.0-16.0) % Plt Count 310 (160-400) X10*3/uL MPV 9.2 L (9.4-12.3) fL Immature Gran % (Auto) 0.3 (0.0-0.4) % Neut % (Auto) 67.7 (45-73) % Lymph % (Auto) 21.9 (20-40) % Blanco % (Auto) 6.5 (2-11) % Eos % (Auto) 3.1 (0-4) % Baso % (Auto) 0.5 (0-2) % Lymph # (Auto) 1.7 (1.2-4.9) X10*3/uL Blanco # (Auto) 0.5 (0.1-1.2) X10*3/uL Eos # (Auto) 0.2 (0.0-0.4) X10*3/uL Baso # (Auto) 0.0 (0.0-0.2) X10*3/uL Abs Immat Gran (auto) 0.02 (0.00-0.03) X10*3/uL Absolute Neuts (auto) 5.2 (2.0-8.3) x10*3/uL Absolute Nucleated RBC 0.000 (0.0-0.012) X10*3/uL Nucleated RBC % (auto) 0.0 (0.0-0.2) /100WBC Sodium 138 (135-145) mmol/L Potassium 4.4 (3.3-5.1) mmol/L Chloride 103 (96-108) mmol/L Carbon Dioxide 23 (22-29) mmol/L Anion Gap 16 (12-20) BUN 12 (9-16) mg/dL Creatinine 0.78 (0.5-1.4) mg/dL Estim Creat Clear Calc 71.9 Estimated GFR > 60 POC Glucose 273 H (60-115) mg/dL Random Glucose 311 H (60-115) mg/dL Calcium 9.2 D (8.4-10.2) mg/dL Total Bilirubin 0.3 (0.0-1.0) mg/dL AST 14 D (5-31) U/L ALT 7 (0-31) U/L Alkaline Phosphatase 98 (39-117) U/L Troponin I High Sens (<3.5-17.0) ng/L Total Protein 6.7 (6.5-8.0) g/dL Albumin 3.7 (3.5-5.0) g/dL 11/26/21 11/27/21 Range/Units 23:20 02:08 WBC (4.8-10.8) X10*3/uL RBC (4.20-5.50) X10*6/uL Hgb (12.0-16.0) g/dl Hct (37.0-47.0) % MCV (80.0-98.0) fL MCH (27.0-33.0) pg MCHC (31.0-35.0) g/dl RDW (11.0-16.0) % Plt Count (160-400) X10*3/uL MPV (9.4-12.3) fL Immature Gran % (Auto) (0.0-0.4) % Neut % (Auto) (45-73) % Lymph % (Auto) (20-40) % Blanco % (Auto) (2-11) % Eos % (Auto) (0-4) % Baso % (Auto) (0-2) % Lymph # (Auto) (1.2-4.9) X10*3/uL Blanco # (Auto) (0.1-1.2) X10*3/uL Eos # (Auto) (0.0-0.4) X10*3/uL Baso # (Auto) (0.0-0.2) X10*3/uL Abs Immat Gran (auto) (0.00-0.03) X10*3/uL Absolute Neuts (auto) (2.0-8.3) x10*3/uL Absolute Nucleated RBC (0.0-0.012) X10*3/uL Nucleated RBC % (auto) (0.0-0.2) /100WBC Sodium (135-145) mmol/L Potassium (3.3-5.1) mmol/L Chloride (96-108) mmol/L Carbon Dioxide (22-29) mmol/L Anion Gap (12-20) BUN (9-16) mg/dL Creatinine (0.5-1.4) mg/dL Estim Creat Clear Calc Estimated GFR POC Glucose (60-115) mg/dL Random Glucose (60-115) mg/dL Calcium (8.4-10.2) mg/dL Total Bilirubin (0.0-1.0) mg/dL AST (5-31) U/L ALT (0-31) U/L Alkaline Phosphatase (39-117) U/L Troponin I High Sens 7.5 11.0 (<3.5-17.0) ng/L Total Protein (6.5-8.0) g/dL Albumin (3.5-5.0) g/dL ECG Data ECG #1: Attestation: I personally reviewed and interpreted this ECG as follows: Interpretation: 2314: Normal sinus rhythm with a rate of 95, normal OR interval, QRS duration QTC interval, no ST segment elevation, no ST segment depression, no T-wave abnormalities, no PACs, no PVCs, this is a normal EKG. Discharge Plan Discharge Clinical Impression: Chest pain, Headache, Anxiety, Essential hypertension Patient Disposition: Home, Self-Care Instructions: Acute Headache (ED) Additional Instructions: Continue taking your blood pressure medications as prescribed by your doctor. Take Tylenol (acetaminophen) 500 mg pills, 2 pills every 4 to 6 hours as needed for pain. Follow-up with your doctor in 2 days. Please return to the emergency department if your symptoms get worse or if you develop any symptoms that are concerning to you. Prescriptions: No Action hydrochlorothiazide 25 mg tablet 25 mg PO DAILY Qty: 30 0RF Rx Instructions: Must call to schedule a cardiology appointment for more refills - overdue pioglitazone 15 mg tablet 15 mg PO DAILY 30 Days Qty: 30 11RF Trulicity 0.75 mg/0.5 mL pen injector 0.75 mg subcut QWEEK 30 Days Qty: 2.5 3RF (DME) lancets [TRUEplus Lancets] 33 gauge misc See Rx Instructions .Route Qty: 100 11RF Rx Instructions: 4x daily metformin 1,000 mg Tablet 1,000 mg PO BID ferrous sulfate 325 mg (65 mg iron) tablet 325 mg PO BID Qty: 60 0RF clopidogrel [Plavix] 75 mg tablet 75 mg PO DAILY Qty: 30 5RF polyethylene glycol 3350 [Miralax] 17 gram/dose powder 17 g PO DAILY Qty: 238 0RF amlodipine 10 mg Tablet 10 mg PO BEDTIME docusate sodium 100 mg Capsule 100 mg PO BID hydralazine 50 mg Tablet 50 mg PO TID pantoprazole [Protonix] 40 mg tablet,delayed release (DR/EC) 40 mg PO BID@0630,1630 lidocaine [Lidoderm] 5 % Adhesive Patch,Medicated 1 patch TOPICAL DAILY fluticasone propionate 50 mcg/actuation [place],Suspension 2 spray INTRANASAL DAILY acetaminophen [Arthritis Pain Relief (acetam)] 650 mg Tablet Extended Release 650 mg PO Q8H PRN (Reason: Pain (Scale Score 1-3)) Flovent HFA 110 mcg/actuation Hfa Aerosol Inhaler 2 puff INHALATION BID albuterol sulfate 2.5 mg /3 mL (0.083 %) Solution For Nebulization 2.5 mg inhalation Q4H PRN (Reason: shortness of breath/wheeze) Qty: 100 0RF tramadol 50 mg tablet 50 mg PO BID PRN (Reason: pain) Qty: 7 0RF amitriptyline 50 mg tablet 1 tab PO BEDTIME oxycodone-acetaminophen 7.5-325 mg tablet 1 tab PO Q6H PRN (Reason: severe pain) amoxicillin-pot clavulanate 875-125 mg tablet 1 tab PO BID Qty: 20 0RF hydralazine 50 mg tablet 50 mg PO TID Qty: 3 0RF cyclobenzaprine 10 mg tablet 10 mg PO TID Qty: 10 0RF carvedilol [Coreg] 25 mg tablet 25 mg PO BID Rx Instructions: must administer with a meal/food multivitamin Tablet 1 tab PO DAILY lisinopril 40 mg tablet 40 mg PO DAILY gabapentin 800 mg tablet 800 mg PO TID aspirin [Adult Low Dose Aspirin] 81 mg tablet,delayed release (DR/EC) 81 mg PO DAILY escitalopram oxalate [Lexapro] 20 mg tablet 20 mg PO DAILY mirtazapine 45 mg tablet 45 mg PO BEDTIME atorvastatin [Lipitor] 80 mg tablet 80 mg PO BEDTIME Tresiba FlexTouch U-100 100 unit/mL (3 mL) insulin pen 10 unit subcut DAILY (DME) FreeStyle Lite Strips Strip See Rx Instructions Not Applicable QID Qty: 10 Rx Instructions: As directed clotrimazole 1 % cream 1 appl topical BID
[2021-11-26] MEDS: Ketorolac Tromethamine 15 MG/ML VIAL IVPUSH (23:58)
[2021-11-26] MEDS: LORazepam 1 MG TABLET 2 MG PO (23:58)
[2021-11-27 00:01] VITALS: BP 189/90; PULSE 90; O2SAT 98
[2021-11-27 01:00] VITALS: BP 197/80
[2021-11-27 01:47] LABS: Alanine Aminotransferase 7 U/L (0-31); Albumin Level 3.7 g/dL (3.5-5.0); Alkaline Phosphatase 98 U/L (39-117); Anion Gap 16 (12-20); Aspartate Amino Transferase 14 U/L (5-31); Bilirubin Total 0.3 mg/dL (0.0-1.0); Blood Urea Nitrogen 12 mg/dL (9-16); Calcium 9.2 mg/dL (8.4-10.2); Carbon Dioxide 23 mmol/L (22-29); Chloride 103 mmol/L (96-108); Creatinine Clr Calc Pharmacy 71.9; Estimated Glomerular Filt Rate > 60; Glucose Random 311 mg/dL (60-115); Potassium 4.4 mmol/L (3.3-5.1); Sodium 138 mmol/L (135-145); Total Protein 6.7 g/dL (6.5-8.0)
[2021-11-27] MEDS: ondansetron HCL 4 MG/2 ML VIAL IVPUSH (01:52)
[2021-11-27] MEDS: Morphine Sulfate 4 MG/ML CARTRIDGE IVPUSH ×2 (01:52→03:06)
[2021-11-27 01:55] VITALS: BP 186/57; PULSE 97; RESP 17
== END 2021-11-27 03:57 | disposition home or self-care (01) ==
PROVIDERS: Emergency Provider Emergency Medicine Emergency Medical Services; PCP Family Medicine
DX: R07.9 Chest pain, unspecified (principal); R51.9 Headache, unspecified; F41.9 Anxiety disorder, unspecified; I10 Essential (primary) hypertension; E11.9 Type 2 diabetes mellitus without complications; E78.5 Hyperlipidemia, unspecified; F17.210 Nicotine dependence, cigarettes, uncomplicated; Z79.82 Long term (current) use of aspirin; Z79.02 Long term (current) use of antithrombotics/antiplatelets; Z79.4 Long term (current) use of insulin; Z79.899 Other long term (current) drug therapy
CPT/HCPCS: 36415; 71045; 80053; 82947; 84484; 85025; 93005; 96374; 96375; 96376; 99284; J1885; J2270; J2405

== ENCOUNTER 2021-11-29 19:37 | Emergency (ER) | payer MEDICAID, SELFPAY ==
--- NOTE | ~2021-11-29 | XR_ITS ---
EXAMINATION: XR CHEST CLINICAL INFORMATION: Chest pain COMPARISON: 11/26/2021 TECHNIQUE: Frontal view of the chest was obtained. FINDINGS: No significant abnormality is noted involving the heart, lungs, mediastinum, bony thorax or soft tissues. XR/XR chest 1V IMPRESSION: Unremarkable examination.
--- NOTE | ~2021-11-29 | CT_ITS ---
EXAMINATION: CT head/brain wo IV con CLINICAL INFORMATION: Reason for Exam severe LIRIANO/HTN COMPARISON: CT head without contrast 09/21/2021 TECHNIQUE: Contiguous axial imaging was performed from the skull base to vertex without intravenous contrast. Sagittal and coronal reformatted images were obtained. This CT examination was performed using dose optimization techniques as appropriate, variously including the following: * Automated exposure control * Adjustment of mA and/or kV according to patient size (this includes techniques or standardized protocols for targeted exams where dose is matched to indication/reason for exam; i.e. extremities or head) Use of iterative reconstruction technique DLP: 609 mGy-cm FINDINGS: No acute osseous or soft tissue abnormality. The mastoid air cells and visualized portions of the paranasal sinuses are well aerated. There is no evidence of acute intracranial hemorrhage or territorial infarction. No abnormal mass effect or midline shift is seen. Kelly to white matter differentiation is well preserved. No extra-axial fluid collections are identified. No hydrocephalus. No significant volume loss. There is no abnormal attenuation within the brain parenchyma. CT/CT head/brain wo IV con IMPRESSION: No acute intracranial abnormality including hemorrhage, mass effect, hydrocephalus, or acute territorial edematous infarction.
[2021-11-29 19:55] VITALS: BP 146/90; PULSE 88; RESP 16; O2SAT 99; BMI 27.4
--- NOTE | 2021-11-29 19:57 | ECG_ITS ---
Test Reason : chest pain Blood Pressure : / mmHG Vent. Rate : 084 BPM Atrial Rate : 084 BPM P-R Int : 136 ms QRS Dur : 082 ms QT Int : 392 ms P-R-T Axes : 038 -02 099 degrees QTc Int : 463 ms Normal sinus rhythm RSR' or QR pattern in V1 suggests right ventricular conduction delay Minimal voltage criteria for LVH, may be normal variant ( R in aVL ) Nonspecific ST and T wave abnormality Prolonged QT Abnormal ECG When compared with ECG of 26-NOV-2021 23:14, T wave amplitude has decreased in Lateral leads Referred By: Nguyen Carrera Electronically Signed By:SOPHIA STEWARD MD
[2021-11-29 20:11] VITALS: BP 187/87; PULSE 78; O2SAT 97
--- NOTE | 2021-11-29 20:22 | PC.NURSE ---
Pt. 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
[2021-11-29 20:23] VITALS: BP 185/77; PULSE 88; RESP 21; O2SAT 99
--- NOTE | 2021-11-29 20:23 | ED.CHESTPAIN ---
HPI - Chest Pain General Chief Complaint: Chest Pain Stated Complaint: chest pain/ hypertension Time Seen by Provider: 11/29/21 19:50 Source: patient Mode of arrival: ambulatory Limitations: no limitations History of Present Illness HPI narrative: Patient comes to the emergency room complaining of 1 hour of headache and chest pain. Patient states that this usually happens when she has severe high blood pressure. Patient did not take any medication at home. However, EMS gave her 324 mg of aspirin and 0.4 mg of sublingual nitro. Also, per EMS patient's blood sugars for 409. Patient does not know what medications she takes for blood pressure. Patient states she is compliant with her prescribed medications. Reviewing patient's records, 2 weeks ago, she got prescriptions for lisinopril 40 mg, hydrochlorothiazide 25 mg, amlodipine 10 mg, carvedilol 25 mg Related Data Home Medications Medication Instructions Recorded Confirmed metformin 1,000 mg tablet 1,000 mg PO BID 12/22/19 05/07/21 aspirin 81 mg tablet,delayed 81 mg PO DAILY 01/02/20 05/07/21 release (Adult Low Dose Aspirin) atorvastatin 80 mg tablet (Lipitor) 80 mg PO BEDTIME 01/02/20 05/07/21 carvedilol 25 mg tablet (Coreg) 25 mg PO BID 01/02/20 05/07/21 escitalopram oxalate 20 mg tablet 20 mg PO DAILY 01/02/20 05/07/21 (Lexapro) gabapentin 800 mg tablet 800 mg PO TID 01/02/20 05/07/21 insulin degludec 100 unit/mL (3 10 unit subcut DAILY 01/02/20 05/07/21 mL) subcutaneous pen (Tresiba FlexTouch U-100 insulin) lisinopril 40 mg tablet 40 mg PO DAILY 01/02/20 05/07/21 mirtazapine 45 mg tablet 45 mg PO BEDTIME 01/02/20 05/07/21 multivitamin 1 tab PO DAILY 01/02/20 05/07/21 acetaminophen 650 mg 650 mg PO Q8H PRN Pain (Scale 01/16/21 05/07/21 tablet,extended release (Arthritis Score 1-3) Pain Relief (acetaminophen) ER) amlodipine 10 mg tablet 10 mg PO BEDTIME 01/16/21 05/07/21 docusate sodium 100 mg capsule 100 mg PO BID 01/16/21 05/07/21 fluticasone propionate 110 2 puff inhalation BID 01/16/21 05/07/21 mcg/actuation HFA aerosol inhaler (Flovent HFA) fluticasone propionate 50 2 spray intranasal DAILY 01/16/21 05/07/21 mcg/actuation nasal spray,suspension hydralazine 50 mg tablet 50 mg PO TID 01/16/21 05/07/21 lidocaine 5 % topical patch 1 patch topical DAILY 01/16/21 05/07/21 (Lidoderm) pantoprazole 40 mg tablet,delayed 40 mg PO BID@0630,1630 01/16/21 05/07/21 release (Protonix) blood sugar diagnostic (FreeStyle #10 ea 03/30/21 Lite Strips) clotrimazole 1 % topical cream 1 appl topical BID 03/30/21 05/07/21 amitriptyline 50 mg tablet 1 tab PO BEDTIME 05/07/21 05/07/21 oxycodone-acetaminophen 7.5 mg-325 1 tab PO Q6H PRN severe pain 05/07/21 05/07/21 mg tablet Previous Rx's Medication Instructions Recorded ferrous sulfate 325 mg (65 mg 325 mg PO BID #60 tabs 05/24/20 iron) tablet hydrochlorothiazide 25 mg tablet 25 mg PO DAILY #30 tabs 08/13/20 clopidogrel 75 mg tablet (Plavix) 75 mg PO DAILY #30 tabs 12/02/20 pioglitazone 15 mg tablet 15 mg PO DAILY 30 days #30 tabs 12/02/20 albuterol sulfate 2.5 mg/3 mL 2.5 mg (3 mL) inhalation Q4H PRN 01/19/21 (0.083 %) solution for nebulization shortness of breath/wheeze #100 mL tramadol 50 mg tablet 50 mg PO BID PRN pain #7 tabs 05/06/21 amoxicillin 875 mg-potassium 1 tab PO BID #20 tabs 05/09/21 clavulanate 125 mg tablet polyethylene glycol 3350 17 17 g PO DAILY #238 grams 07/12/21 gram/dose oral powder (Miralax) dulaglutide 0.75 mg/0.5 mL 0.75 mg (0.5 mL) subcut QWEEK 30 07/14/21 subcutaneous pen injector days #2.5 mL ([facility] lancets 33 gauge (TRUEplus Lancets) #100 ea 07/26/21 hydralazine 50 mg tablet 50 mg PO TID #3 tabs 09/21/21 cyclobenzaprine 10 mg tablet 10 mg PO TID #10 tabs 10/05/21 Allergies Allergy/AdvReac Type Severity Reaction Status Date / Time latex [LATEX] Allergy Unknown RASH Verified 10/12/21 10:49 naproxen [From NAPROSYN] Allergy Unknown TACHYCARDIA Verified 10/12/21 10:49 Review of Systems Review of Systems: Constitutional : No Weight loss, No Fever, No Chills, No Night Sweats, No Fatigue, No Malaise ENT/Mouth : No Hearing loss, No Ear Pain, No Nasal Congestion, No Sinus Pain, No Hoarseness, No sore throat, No Rhinorrhea, No Swallowing Difficulty Eyes: No Eye Pain, No Swelling, No Redness, No Foreign Body, No Discharge, No Vision Changes Cardiovascular : Complaining of Chest Pain, complaining of elevated blood pressure, No SOB, No Dyspnea on Exertion, No Orthopnea, No Edema, No Palpitations Respiratory : No Cough, No Sputum, No Wheezing, No Smoke Exposure, No Dyspnea Gastrointestinal : No Nausea, No Vomiting, No Diarrhea, No Constipation, No abdominal Pain, No Hematochezia, No Melena Genitourinary : no irregular bleeding, No Dysuria, No Urinary Frequency, No Hematuria, No Urinary Incontinence, No Urgency, No Flank Pain, No Urinary Flow Changes, No Hesitancy Musculoskeletal : No joint pain, No Myalgias, No Joint Swelling Skin : No Skin Lesions, No rash Neuro : No Weakness, No Numbness, No Paresthesias, No Loss of Consciousness, No Dizziness, complaining of Headache Psych : No Anxiety/Panic, No Depression, No SI/HI/AH/VH, No Social Issues, Heme/Lymph: No Bruising, No Bleeding,No Lymphadenopathy Endocrine : No Polyuria, No Polydipsia, No Temperature Intolerance FOR[facility]LY [facility], [facility] Past Medical History Medical History Arthritis Asthma CAD (coronary artery disease) Cyst (solitary) of breast Diabetes H. pylori infection HLD (hyperlipidemia) HTN (hypertension) HTN (hypertension) Kidney calculi T2DM (type 2 diabetes mellitus) Vitamin D deficiency Surgical History History of breast surgery History of cardiac cath History of esophagogastroduodenoscopy (EGD) Hx of colonoscopy Family History Family History Mother Diabetes Liver cancer Social History Social History Household Members: Children and Friend(s) Housing: Apartment Do you presently have visiting nurse or other home services: No Alcohol intake: never Patient Tobacco Use Status: Current everyday Tobacco user Tobacco use type: Cigarette Cigarettes Per Day: 2 Years Smoked: 40 +/- e-Cigarette/Vaping Use: Never Used Second Hand Smoke Exposure: No Use of substances other than those prescribed or required for medical reasons: No Advance Directives: No Advance Directives Information Provided: No Patient : No service: No Current occupational status: unemployed and disabled Physical Exam Vital Signs: Vital Signs: Last Vital Signs Temp 97.3 F 11/29/21 23:35 Pulse 81 11/29/21 23:35 Resp 19 11/29/21 23:35 BP 123/73 11/29/21 23:35 Pulse Ox 96 11/29/21 23:35 O2 Del Method 11/29/21 23:35 BMI result Body Mass Index 27.4 Const: Other: Appearance: Alert. Oriented X3. Teary Eyes: Pupils equal, round and reactive to light. ENT: Pharynx normal. Neck: Normal inspection. Neck supple. No lymph nodes noted. No crepitus CVS: Normal heart rate and rhythm. Pulses normal. Normal S1 and S2 Respiratory: No respiratory distress. Breath sounds normal. No Wheezing. No rales Abdomen: Soft and nontender. No rigidity. No distention. Skin: Skin warm and dry. Normal skin color. Normal skin turgor. Extremities: No lower extremity edema. No Lacerations. No Rash Neuro: Oriented X 3. No motor deficit. No sensory deficit. Moving all extremities. No slurred speech. CN 2 through 12 grossly intact Psych: calm, cooperative, teary Course Course Course Narrative: According to EMS, patient's initial brought pressure was above 200, on arrival to the emergency room 185/77. Patient was already given aspirin and nitroglycerin per EMS. Patient getting p.o. labetalol and acetaminophen at this time. Head CT and labs are pending. Patient's blood pressure improved to 123/[address] shows no acute abnormalities, troponin negative x2, EKG negative. Chest pain resolved, headache nearly resolved. Patient feeling much better. Patient states that she is not sure which medication she is taking or not, she says that she has a pill box and does not know what medications that are in there. I discussed with the patient to follow up with the primary care physician tomorrow, and needs to make sure that she is on her for blood pressure medications. Patient denotes she is on that many blood pressure medications or at least is supposed to be on lisinopril, hydrochlorothiazide, amlodipine and carvedilol. Since patient is not sure what she is taking and what she is not taking 4 medications, at this time we will not change any of her meds. As mentioned above, she needs to have close follow-up with her PCP MDM - Chest Pain Lab Data Result diagrams: 11/29/21 20:38 11/29/21 22:04 Labs: Lab Results 11/29/21 11/29/21 11/29/21 Range/Units 20:38 20:38 20:38 WBC 6.7 (4.8-10.8) X10*3/uL RBC 3.88 L (4.20-5.50) X10*6/uL Hgb 11.3 L (12.0-16.0) g/dl Hct 34.0 L (37.0-47.0) % MCV 87.6 (80.0-98.0) fL MCH 29.1 (27.0-33.0) pg MCHC 33.2 (31.0-35.0) g/dl RDW 13.7 (11.0-16.0) % Plt Count 303 (160-400) X10*3/uL MPV 9.2 L (9.4-12.3) fL Immature Gran % (Auto) 0.3 (0.0-0.4) % Neut % (Auto) 64.0 (45-73) % Lymph % (Auto) 25.4 (20-40) % Williamson % (Auto) 6.4 (2-11) % Eos % (Auto) 3.3 (0-4) % Baso % (Auto) 0.6 (0-2) % Lymph # (Auto) 1.7 (1.2-4.9) X10*3/uL Williamson # (Auto) 0.4 (0.1-1.2) X10*3/uL Eos # (Auto) 0.2 (0.0-0.4) X10*3/uL Baso # (Auto) 0.0 (0.0-0.2) X10*3/uL Abs Immat Gran (auto) 0.02 (0.00-0.03) X10*3/uL Absolute Neuts (auto) 4.3 (2.0-8.3) x10*3/uL Absolute Nucleated RBC 0.000 (0.0-0.012) X10*3/uL Nucleated RBC % (auto) 0.0 (0.0-0.2) /100WBC PT 11.1 (10.0-13.1) SEC INR 1.0 (0.9-1.1) Sodium (135-145) mmol/L Potassium (3.3-5.1) mmol/L Chloride (96-108) mmol/L Carbon Dioxide (22-29) mmol/L Anion Gap (12-20) BUN (9-16) mg/dL Creatinine (0.5-1.4) mg/dL Estim Creat Clear Calc Estimated GFR POC Glucose (60-115) mg/dL Random Glucose (60-115) mg/dL Calcium (8.4-10.2) mg/dL Total Bilirubin (0.0-1.0) mg/dL Direct Bilirubin (0.0-0.5) mg/dL AST (5-31) U/L ALT (0-31) U/L Alkaline Phosphatase (39-117) U/L Troponin I High Sens 5.7 (<3.5-17.0) ng/L Total Protein (6.5-8.0) g/dL Albumin (3.5-5.0) g/dL COVID-19 (RAMA) (Negative) COVID-19 Clin Com 11/29/21 11/29/21 11/29/21 Range/Units 20:38 20:51 22:04 WBC (4.8-10.8) X10*3/uL RBC (4.20-5.50) X10*6/uL Hgb (12.0-16.0) g/dl Hct (37.0-47.0) % MCV (80.0-98.0) fL MCH (27.0-33.0) pg MCHC (31.0-35.0) g/dl RDW (11.0-16.0) % Plt Count (160-400) X10*3/uL MPV (9.4-12.3) fL Immature Gran % (Auto) (0.0-0.4) % Neut % (Auto) (45-73) % Lymph % (Auto) (20-40) % Williamson % (Auto) (2-11) % Eos % (Auto) (0-4) % Baso % (Auto) (0-2) % Lymph # (Auto) (1.2-4.9) X10*3/uL Williamson # (Auto) (0.1-1.2) X10*3/uL Eos # (Auto) (0.0-0.4) X10*3/uL Baso # (Auto) (0.0-0.2) X10*3/uL Abs Immat Gran (auto) (0.00-0.03) X10*3/uL Absolute Neuts (auto) (2.0-8.3) x10*3/uL Absolute Nucleated RBC (0.0-0.012) X10*3/uL Nucleated RBC % (auto) (0.0-0.2) /100WBC PT (10.0-13.1) SEC INR (0.9-1.1) Sodium 142 (135-145) mmol/L Potassium 4.0 (3.3-5.1) mmol/L Chloride 105 (96-108) mmol/L Carbon Dioxide 27 (22-29) mmol/L Anion Gap 14 (12-20) BUN 18 H (9-16) mg/dL Creatinine 0.76 (0.5-1.4) mg/dL Estim Creat Clear Calc 80.7 Estimated GFR > 60 POC Glucose 328 H (60-115) mg/dL Random Glucose 77 (60-115) mg/dL Calcium 9.1 (8.4-10.2) mg/dL Total Bilirubin 0.2 (0.0-1.0) mg/dL Direct Bilirubin < 0.2 (0.0-0.5) mg/dL AST 11 (5-31) U/L ALT 7 (0-31) U/L Alkaline Phosphatase 89 (39-117) U/L Troponin I High Sens (<3.5-17.0) ng/L Total Protein 6.2 L (6.5-8.0) g/dL Albumin 3.7 (3.5-5.0) g/dL COVID-19 (RAMA) Negative (Negative) COVID-19 Clin Com See Note 11/29/21 11/29/21 Range/Units 22:04 22:57 WBC (4.8-10.8) X10*3/uL RBC (4.20-5.50) X10*6/uL Hgb (12.0-16.0) g/dl Hct (37.0-47.0) % MCV (80.0-98.0) fL MCH (27.0-33.0) pg MCHC (31.0-35.0) g/dl RDW (11.0-16.0) % Plt Count (160-400) X10*3/uL MPV (9.4-12.3) fL Immature Gran % (Auto) (0.0-0.4) % Neut % (Auto) (45-73) % Lymph % (Auto) (20-40) % Williamson % (Auto) (2-11) % Eos % (Auto) (0-4) % Baso % (Auto) (0-2) % Lymph # (Auto) (1.2-4.9) X10*3/uL Williamson # (Auto) (0.1-1.2) X10*3/uL Eos # (Auto) (0.0-0.4) X10*3/uL Baso # (Auto) (0.0-0.2) X10*3/uL Abs Immat Gran (auto) (0.00-0.03) X10*3/uL Absolute Neuts (auto) (2.0-8.3) x10*3/uL Absolute Nucleated RBC (0.0-0.012) X10*3/uL Nucleated RBC % (auto) (0.0-0.2) /100WBC PT (10.0-13.1) SEC INR (0.9-1.1) Sodium (135-145) mmol/L Potassium (3.3-5.1) mmol/L Chloride (96-108) mmol/L Carbon Dioxide (22-29) mmol/L Anion Gap (12-20) BUN (9-16) mg/dL Creatinine (0.5-1.4) mg/dL Estim Creat Clear Calc Estimated GFR POC Glucose 135 H (60-115) mg/dL Random Glucose (60-115) mg/dL Calcium (8.4-10.2) mg/dL Total Bilirubin (0.0-1.0) mg/dL Direct Bilirubin (0.0-0.5) mg/dL AST (5-31) U/L ALT (0-31) U/L Alkaline Phosphatase (39-117) U/L Troponin I High Sens 7.2 (<3.5-17.0) ng/L Total Protein (6.5-8.0) g/dL Albumin (3.5-5.0) g/dL COVID-19 ([facility]A) (Negative) COVID-19 Clin Com Critical Care Time Critical Care Time Critical Care Time: Yes Total Critical Care Time: 60 Attestation: I have personally provided critical care time. Time includes review of lab data, radiology results, discussion with consultants, and monitoring for potential decompensation. Intervention performed as documented. Discharge Plan Discharge Clinical Impression: Hypertensive urgency, Chest pain, Hyperglycemia, Headache Patient Disposition: Home, Self-Care Instructions: Hypertension (ED), Diabetic Hyperglycemia (ED), Chest Pain (DC) Additional Instructions: Please follow-up with your primary care physician tomorrow. If you have any worsening or new symptoms, please return to the emergency room or call 911 Prescriptions: No Action hydrochlorothiazide 25 mg tablet 25 mg PO DAILY Qty: 30 0RF Rx Instructions: Must call to schedule a cardiology appointment for more refills - overdue pioglitazone 15 mg tablet 15 mg PO DAILY 30 Days Qty: 30 11RF Trulicity 0.75 mg/0.5 mL pen injector 0.75 mg subcut QWEEK 30 Days Qty: 2.5 3RF (DME) lancets [[facility]ets[facility] See Rx Instructions .Route Qty: 100 11RF Rx Instructions: 4x daily metformin 1,000 mg Tablet 1,000 mg PO BID ferrous sulfate 325 mg (65 mg iron) tablet 325 mg PO BID Qty: 60 0RF clopidogrel [Plavix] 75 mg tablet 75 mg PO DAILY Qty: 30 5RF polyethylene glycol 3350 [Miralax] 17 gram/dose powder 17 g PO DAILY Qty: 238 0RF amlodipine 10 mg Tablet 10 mg PO BEDTIME docusate sodium 100 mg Capsule 100 mg PO BID hydralazine 50 mg Tablet 50 mg PO TID pantoprazole [Protonix] 40 mg tablet,delayed release (DR/EC) 40 mg PO BID@0630,1630 lidocaine [Lidoderm] 5 % Adhesive Patch,Medicated 1 patch TOPICAL DAILY fluticasone propionate 50 mcg/actuation Weld,Suspension 2 spray INTRANASAL DAILY acetaminophen [Arthritis Pain Relief (acetam)] 650 mg Tablet Extended Release 650 mg PO Q8H PRN (Reason: Pain (Scale Score 1-3)) Flovent HFA 110 mcg/actuation Hfa Aerosol Inhaler 2 puff INHALATION BID albuterol sulfate 2.5 mg /3 mL (0.083 %) Solution For Nebulization 2.5 mg inhalation Q4H PRN (Reason: shortness of breath/wheeze) Qty: 100 0RF tramadol 50 mg tablet 50 mg PO BID PRN (Reason: pain) Qty: 7 0RF amitriptyline 50 mg tablet 1 tab PO BEDTIME oxycodone-acetaminophen 7.5-325 mg tablet 1 tab PO Q6H PRN (Reason: severe pain) amoxicillin-pot clavulanate 875-125 mg tablet 1 tab PO BID Qty: 20 0RF hydralazine 50 mg tablet 50 mg PO TID Qty: 3 0RF cyclobenzaprine 10 mg tablet 10 mg PO TID Qty: 10 0RF carvedilol [Coreg] 25 mg tablet 25 mg PO BID Rx Instructions: must administer with a meal/food multivitamin Tablet 1 tab PO DAILY lisinopril 40 mg tablet 40 mg PO DAILY gabapentin 800 mg tablet 800 mg PO TID aspirin [Adult Low Dose Aspirin] 81 mg tablet,delayed release (DR/EC) 81 mg PO DAILY escitalopram oxalate [Lexapro] 20 mg tablet 20 mg PO DAILY mirtazapine 45 mg tablet 45 mg PO BEDTIME atorvastatin [Lipitor] 80 mg tablet 80 mg PO BEDTIME Tresiba FlexTouch U-100 100 unit/mL (3 mL) insulin pen 10 unit subcut DAILY (DME) FreeStyle Lite Strips Strip See Rx Instructions Not Applicable QID Qty: 10 Rx Instructions: As directed clotrimazole 1 % cream 1 appl topical BID
--- NOTE | 2021-11-29 20:38 | PC.NURSE ---
Labs and COVID swab collected and sent as ordered
[2021-11-29 20:43] LABS: MANUAL DIFF FLAG NO
[2021-11-29 20:44] LABS: Basophils Percent Auto 0.6 % (0-2); Eosinophils Absolute Auto 0.2 X10*3/uL (0.0-0.4); Eosinophils Percent Auto 3.3 % (0-4); Hemoglobin 11.3 g/dl (12.0-16.0); Imm Gran Abs Auto 0.02 X10*3/uL (0.00-0.03); Imm Gran Pct Auto 0.3 % (0.0-0.4); Lymphocytes Absolute Auto 1.7 X10*3/uL (1.2-4.9); Lymphocytes Percent Auto 25.4 % (20-40); Mean Corpuscular HGB Conc 33.2 g/dl (31.0-35.0); Mean Corpuscular Hemoglobin 29.1 pg (27.0-33.0); Mean Corpuscular Volume 87.6 fL (80.0-98.0); Mean Platelet Volume 9.2 fL (9.4-12.3); Monocytes Absolute Auto 0.4 X10*3/uL (0.1-1.2); Monocytes Percent Auto 6.4 % (2-11); Neutrophils Absolute Auto 4.3 x10*3/uL (2.0-8.3); Platelet Count 303 X10*3/uL (160-400); Red Blood Count 3.88 X10*6/uL (4.20-5.50); Red Cell Distribution Width 13.7 % (11.0-16.0); White Blood Count 6.7 X10*3/uL (4.8-10.8)
--- NOTE | 2021-11-29 20:49 | PC.NURSE ---
Awaiting EKG machine at this time
[2021-11-29 20:50] LABS: Prothrombin Time 11.1 SEC (10.0-13.1)
--- NOTE | 2021-11-29 20:51 | PC.NURSE ---
POC 328
[2021-11-29 20:54] LABS: Glucose, Whole Blood 328 mg/dL (60-115)
[2021-11-29] MEDS: Acetaminophen 325 MG TABLET 975 MG PO (20:55)
[2021-11-29] MEDS: Insulin Regular, Human 100 UNIT/ML 3 ML VIAL 10 UNIT IVPUSH (20:55)
[2021-11-29] MEDS: Labetalol HCL 100 MG TABLET PO (20:56)
[2021-11-29 20:58] VITALS: BP 174/69; PULSE 89; RESP 18; O2SAT 99
--- NOTE | 2021-11-29 20:58 | PC.NURSE ---
Meds. administered per MAR
[2021-11-29 21:07] LABS: Troponin-I High Sensitivity 5.7 ng/L (<3.5-17.0)
[2021-11-29 21:13] LABS: COVID-19 Test Negative (Negative); IDNOW Serial# 55D5AD1C
[2021-11-29 22:28] LABS: Alanine Aminotransferase 7 U/L (0-31); Albumin Level 3.7 g/dL (3.5-5.0); Alkaline Phosphatase 89 U/L (39-117); Anion Gap 14 (12-20); Aspartate Amino Transferase 11 U/L (5-31); Bilirubin Direct < 0.2 mg/dL (0.0-0.5); Bilirubin Total 0.2 mg/dL (0.0-1.0); Blood Urea Nitrogen 18 mg/dL (9-16); Calcium 9.1 mg/dL (8.4-10.2); Carbon Dioxide 27 mmol/L (22-29); Chloride 105 mmol/L (96-108); Creatinine Clr Calc Pharmacy 80.7; Estimated Glomerular Filt Rate > 60; Glucose Random 77 mg/dL (60-115); Sodium 142 mmol/L (135-145); Total Protein 6.2 g/dL (6.5-8.0)
[2021-11-29 22:33] LABS: Troponin-I High Sensitivity 7.2 ng/L (<3.5-17.0)
[2021-11-29 23:01] LABS: Glucose, Whole Blood 135 mg/dL (60-115)
[2021-11-29 23:22] VITALS: BP 160/63; PULSE 82; RESP 20; O2SAT 96
[2021-11-29 23:35] VITALS: BP 123/73; PULSE 81; RESP 19; TEMP 36.3; O2SAT 96
== END 2021-11-30 01:06 | disposition home or self-care (01) ==
PROVIDERS: Emergency Provider Emergency Medicine; PCP Family Medicine
DX: I16.0 Hypertensive urgency (principal); R07.9 Chest pain, unspecified; E11.65 Type 2 diabetes mellitus with hyperglycemia; R51.9 Headache, unspecified; Z20.822 Contact with and (suspected) exposure to COVID-19; E78.5 Hyperlipidemia, unspecified; F17.210 Nicotine dependence, cigarettes, uncomplicated; Z79.82 Long term (current) use of aspirin; Z79.02 Long term (current) use of antithrombotics/antiplatelets; Z79.4 Long term (current) use of insulin; Z79.899 Other long term (current) drug therapy
CPT/HCPCS: 36415; 70450; 71045; 80048; 80076; 82947; 84484; 85025; 85610; 87635; 93005; 99284; 99285

== ENCOUNTER 2021-12-24 20:38 | Emergency (ER) | payer MEDICAID, SELFPAY ==
--- NOTE | ~2021-12-24 | XR_ITS ---
EXAMINATION: XR CHEST CLINICAL INFORMATION: Chest pain COMPARISON: 11/29/2021 TECHNIQUE: Frontal view of the chest was obtained. FINDINGS: No significant abnormality is noted involving the heart, lungs, mediastinum, bony thorax or soft tissues. XR/XR chest 1V IMPRESSION: Unremarkable examination.
[2021-12-24 20:49] VITALS: PULSE 98; RESP 15; TEMP 37.1; O2SAT 97; BMI 25.1
[2021-12-24 20:58] VITALS: BP 158/64
--- NOTE | 2021-12-24 20:58 | PC.NURSE ---
Patient arrives via EMS from home endorsing 8/10 chest pain radiating to her left back that began at 7PM tonight. She states her blood pressures and blood sugar have also been high starting today. +nausea. +headache. +back pain, she states she always has back pain. Even using cruise staff member, patient is a very poor historian- she is unable to state why she's on plavix and is unable to recall her medical history... 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 On plavix, hydralazine, ASA, gabapentin, metformin, insulin... though patient states she hasn't had any insulin today because she doesn't have any at home. BG for EMS >500. EMS gave patient 324mg aspirin. Patient is alert, oriented x3. She requests pain medication for her head and back. EKG complete and reviewed with attending.
[2021-12-24 20:59] LABS: MANUAL DIFF FLAG NO
[2021-12-24 21:00] LABS: Basophils Percent Auto 0.5 % (0-2); Eosinophils Absolute Auto 0.2 X10*3/uL (0.0-0.4); Eosinophils Percent Auto 3.6 % (0-4); Hematocrit 32.4 % (37.0-47.0); Hemoglobin 10.6 g/dl (12.0-16.0); Imm Gran Abs Auto 0.01 X10*3/uL (0.00-0.03); Imm Gran Pct Auto 0.2 % (0.0-0.4); Mean Corpuscular HGB Conc 32.7 g/dl (31.0-35.0); Mean Corpuscular Hemoglobin 29.2 pg (27.0-33.0); Mean Corpuscular Volume 89.3 fL (80.0-98.0); Mean Platelet Volume 9.3 fL (9.4-12.3); Monocytes Absolute Auto 0.4 X10*3/uL (0.1-1.2); Monocytes Percent Auto 6.3 % (2-11); Neutrophils Absolute Auto 3.6 x10*3/uL (2.0-8.3); Neutrophils Percent Auto 57.4 % (45-73); Platelet Count 276 X10*3/uL (160-400); Red Blood Count 3.63 X10*6/uL (4.20-5.50); Red Cell Distribution Width 13.2 % (11.0-16.0); White Blood Count 6.2 X10*3/uL (4.8-10.8)
[2021-12-24 21:19] LABS: Troponin-I High Sensitivity 6.3 ng/L (<3.5-17.0)
[2021-12-24 21:22] LABS: Alanine Aminotransferase 7 U/L (0-31); Albumin Level 3.5 g/dL (3.5-5.0); Alkaline Phosphatase 84 U/L (39-117); Anion Gap 15 (12-20); Aspartate Amino Transferase 10 U/L (5-31); Bilirubin Total 0.2 mg/dL (0.0-1.0); Blood Urea Nitrogen 21 mg/dL (9-16); Calcium 8.8 mg/dL (8.4-10.2); Carbon Dioxide 24 mmol/L (22-29); Chloride 103 mmol/L (96-108); Creatinine Clr Calc Pharmacy 54.3; Estimated Glomerular Filt Rate 55; Glucose Random 499 mg/dL (60-115); Magnesium 1.6 mg/dL (1.6-2.6); Potassium 3.9 mmol/L (3.3-5.1); Sodium 138 mmol/L (135-145)
--- NOTE | 2021-12-24 21:25 | ED_ITS ---
HPI - Chest Pain General Chief Complaint: Chest Pain Stated Complaint: Neck and chest pain Time Seen by Provider: 12/24/21 21:03 Source: patient Mode of arrival: ambulatory Limitations: no limitations History of Present Illness HPI narrative: Patient comes to the emergency room complaining that her blood glucose is high. Patient states that since yesterday she ran out of insulin, states that she takes Humalog 6 units daily with 1 of her meals. Patient states that she took her glucose tonight and it read as ?high?. Patient also complaining of left suprascapular pain that started couple of months ago. Patient denies any injury. Patient denies chest pain although she said to the triage nurse that she had chest pain. Patient states that is her chronic back pain that radiates toward the chest that is bothering her. Related Data Home Medications Medication Instructions Recorded Confirmed metformin 1,000 mg tablet 1,000 mg PO BID 12/22/19 05/07/21 aspirin 81 mg tablet,delayed 81 mg PO DAILY 01/02/20 05/07/21 release (Adult Low Dose Aspirin) atorvastatin 80 mg tablet (Lipitor) 80 mg PO BEDTIME 01/02/20 05/07/21 carvedilol 25 mg tablet (Coreg) 25 mg PO BID 01/02/20 05/07/21 escitalopram oxalate 20 mg tablet 20 mg PO DAILY 01/02/20 05/07/21 (Lexapro) gabapentin 800 mg tablet 800 mg PO TID 01/02/20 05/07/21 insulin degludec 100 unit/mL (3 10 unit subcut DAILY 01/02/20 05/07/21 mL) subcutaneous pen (Tresiba FlexTouch U-100 insulin) lisinopril 40 mg tablet 40 mg PO DAILY 01/02/20 05/07/21 mirtazapine 45 mg tablet 45 mg PO BEDTIME 01/02/20 05/07/21 multivitamin 1 tab PO DAILY 01/02/20 05/07/21 acetaminophen 650 mg 650 mg PO Q8H PRN Pain (Scale 01/16/21 05/07/21 tablet,extended release (Arthritis Score 1-3) Pain Relief (acetaminophen) ER) amlodipine 10 mg tablet 10 mg PO BEDTIME 01/16/21 05/07/21 docusate sodium 100 mg capsule 100 mg PO BID 01/16/21 05/07/21 fluticasone propionate 110 2 puff inhalation BID 01/16/21 05/07/21 mcg/actuation HFA aerosol inhaler (Flovent HFA) fluticasone propionate 50 2 spray intranasal DAILY 01/16/21 05/07/21 mcg/actuation nasal spray,suspension hydralazine 50 mg tablet 50 mg PO TID 01/16/21 05/07/21 lidocaine 5 % topical patch 1 patch topical DAILY 01/16/21 05/07/21 (Lidoderm) pantoprazole 40 mg tablet,delayed 40 mg PO BID@0630,1630 01/16/21 05/07/21 release (Protonix) blood sugar diagnostic (FreeStyle #10 ea 03/30/21 Lite Strips) clotrimazole 1 % topical cream 1 appl topical BID 03/30/21 05/07/21 amitriptyline 50 mg tablet 1 tab PO BEDTIME 05/07/21 05/07/21 oxycodone-acetaminophen 7.5 mg-325 1 tab PO Q6H PRN severe pain 05/07/21 05/07/21 mg tablet Previous Rx's Medication Instructions Recorded ferrous sulfate 325 mg (65 mg 325 mg PO BID #60 tabs 05/24/20 iron) tablet hydrochlorothiazide 25 mg tablet 25 mg PO DAILY #30 tabs 08/13/20 clopidogrel 75 mg tablet (Plavix) 75 mg PO DAILY #30 tabs 12/02/20 pioglitazone 15 mg tablet 15 mg PO DAILY 30 days #30 tabs 12/02/20 albuterol sulfate 2.5 mg/3 mL 2.5 mg (3 mL) inhalation Q4H PRN 01/19/21 (0.083 %) solution for nebulization shortness of breath/wheeze #100 mL tramadol 50 mg tablet 50 mg PO BID PRN pain #7 tabs 05/06/21 amoxicillin 875 mg-potassium 1 tab PO BID #20 tabs 05/09/21 clavulanate 125 mg tablet polyethylene glycol 3350 17 17 g PO DAILY #238 grams 07/12/21 gram/dose oral powder (Miralax) dulaglutide 0.75 mg/0.5 mL 0.75 mg (0.5 mL) subcut QWEEK 30 07/14/21 subcutaneous pen injector days #2.5 mL (Trulicity) lancets 33 gauge (TRUEplus Lancets) #100 ea 07/26/21 hydralazine 50 mg tablet 50 mg PO TID #3 tabs 09/21/21 cyclobenzaprine 10 mg tablet 10 mg PO TID #10 tabs 10/05/21 insulin lispro protamine-lispro 6 unit (0.06 mL) subcut QAM #10 mL 12/25/21 100 unit/mL (50-50) subcutaneous susp (Humalog Mix 50-50 Insuln U-100) Allergies Allergy/AdvReac Type Severity Reaction Status Date / Time latex [LATEX] Allergy Unknown RASH Verified 10/12/21 10:49 naproxen [From NAPROSYN] Allergy Unknown TACHYCARDIA Verified 10/12/21 10:49 Review of Systems Review of Systems: Constitutional : No Weight loss, No Fever, No Chills, No Night Sweats, No Fatigue, No Malaise ENT/Mouth : No Hearing loss, No Ear Pain, No Nasal Congestion, No Sinus Pain, No Hoarseness, No sore throat, No Rhinorrhea, No Swallowing Difficulty Eyes: No Eye Pain, No Swelling, No Redness, No Foreign Body, No Discharge, No Vision Changes Cardiovascular : No Chest Pain, No SOB, No Dyspnea on Exertion, No Orthopnea, No Edema, No Palpitations Respiratory : No Cough, No Sputum, No Wheezing, No Smoke Exposure, No Dyspnea Gastrointestinal : No Nausea, No Vomiting, No Diarrhea, No Constipation, No abdominal Pain, No Hematochezia, No Melena Genitourinary : no irregular bleeding, No Dysuria, No Urinary Frequency, No Hematuria, No Urinary Incontinence, No Urgency, No Flank Pain, No Urinary Flow Changes, No Hesitancy Musculoskeletal : No joint pain, complaining of chronic left suprascapular pain radiating from the back towards the chest area Skin : No Skin Lesions, No rash Neuro : No Weakness, No Numbness, No Paresthesias, No Loss of Consciousness, No Dizziness, No Headache Psych : No Anxiety/Panic, No Depression, No SI/HI/AH/VH, No Social Issues, Heme/Lymph: No Bruising, No Bleeding,No Lymphadenopathy Endocrine : No Polyuria, No Polydipsia, complaining of high glucose PMFSH Past Medical History Medical History Arthritis Asthma CAD (coronary artery disease) Cyst (solitary) of breast Diabetes H. pylori infection HLD (hyperlipidemia) HTN (hypertension) HTN (hypertension) Kidney calculi T2DM (type 2 diabetes mellitus) Vitamin D deficiency Surgical History History of breast surgery History of cardiac cath History of esophagogastroduodenoscopy (EGD) Hx of colonoscopy Family History Family History Mother Diabetes Liver cancer Social History Social History Household Members: Children and Friend(s) Housing: Apartment Do you presently have visiting nurse or other home services: No Alcohol intake: never Patient Tobacco Use Status: Current everyday Tobacco user Tobacco use type: Cigarette Cigarettes Per Day: 2 Years Smoked: 40 +/- e-Cigarette/Vaping Use: Never Used Second Hand Smoke Exposure: No Advance Directives: No Advance Directives Information Provided: No service: No Current occupational status: unemployed and disabled Physical Exam Vital Signs: Vital Signs: Last Vital Signs Temp 98.8 F 12/24/21 20:49 Pulse 88 12/24/21 22:51 Resp 14 12/24/21 22:51 BP 171/56 H 12/24/21 22:51 Pulse Ox 99 12/24/21 22:51 O2 Del Method 12/24/21 22:51 BMI result Body Mass Index 25.1 Const: Other: Appearance: Alert. Oriented X3. Seems uncomfortable lying in her back Eyes: Pupils equal, round and reactive to light. ENT: Pharynx normal. Neck: Normal inspection. Neck supple. No lymph nodes noted. No crepitus CVS: Normal heart rate and rhythm. Pulses normal. Normal S1 and S2 Respiratory: No respiratory distress. Breath sounds normal. No Wheezing. No rales Abdomen: Soft and nontender. No rigidity. No distention. Back: Pain to palpation over the left suprascapular area, no pain to palpation over the cervical/thoracic/lumbar area Skin: Skin warm and dry. Normal skin color. Normal skin turgor. Extremities: No lower extremity edema. No Lacerations. No Rash Neuro: Oriented X 3. No motor deficit. No sensory deficit. Moving all extremit ies. No slurred speech. CN 2 through 12 grossly intact Psych: calm, cooperative, normal affect Course Course Course Narrative: Patient states that the pain in her back radiating towards the chest is chronic, over 2 months present. No active chest pain at this time. Patient is receiving IV fluids, insulin IV and ketorolac. Patient's blood glucose improved to 290. Humalog has been sent to patient's pharmacy. Patient is adamant that she takes Humalog 6 units usually with breakfast. I do not see her med rec that she takes Humalog. Patient states that she is no longer taking Tresiba, does take p.o. pioglitazone and has Trulicity at home. Patient provided with a prescription of Humalog 6 units at home at breakfast time. Patient states she has all her equipment, needles, syringes at home Chest x-ray unremarkable EKG shows normal sinus rhythm, heart rate 100, incomplete right bundle branch block, nonspecific T-wave abnormalities, QTC 459 Medications Administered Discontinued Medications Generic Name Dose Route Start Last Admin Trade Name Nabila PRN Reason Stop Dose Admin Sodium Chloride 2,000 mls @ 999 mls/hr 12/24/21 21:23 12/24/21 21:33 Ns IVCONT 12/24/21 23:23 999 mls/hr .Q2H1M ONE Administration Insulin Human Regular 10 unit 12/24/21 21:23 12/24/21 21:37 Insulin Regular, Human 100 Unit/Ml 3 Ml Vial IVPUSH 12/24/21 21:24 10 unit ONCE ONE Administration Ketorolac Tromethamine 15 mg 12/24/21 21:24 12/24/21 21:35 Ketorolac Tromethamine 15 Mg/Ml Vial IVPUSH 12/24/21 21:25 15 mg ONCE ONE Administration MDM - Chest Pain Lab Data Result diagrams: 12/24/21 20:54 12/24/21 20:54 Labs: Lab Results 12/24/21 12/24/21 12/24/21 Range/Units 20:54 20:54 20:54 WBC 6.2 (4.8-10.8) X10*3/uL RBC 3.63 L (4.20-5.50) X10*6/uL Hgb 10.6 L (12.0-16.0) g/dl Hct 32.4 L (37.0-47.0) % MCV 89.3 (80.0-98.0) fL MCH 29.2 (27.0-33.0) pg MCHC 32.7 (31.0-35.0) g/dl RDW 13.2 (11.0-16.0) % Plt Count 276 (160-400) X10*3/uL MPV 9.3 L (9.4-12.3) fL Immature Gran % (Auto) 0.2 (0.0-0.4) % Neut % (Auto) 57.4 (45-73) % Lymph % (Auto) 32.0 (20-40) % Woodruff % (Auto) 6.3 (2-11) % Eos % (Auto) 3.6 (0-4) % Baso % (Auto) 0.5 (0-2) % Lymph # (Auto) 2.0 (1.2-4.9) X10*3/uL Woodruff # (Auto) 0.4 (0.1-1.2) X10*3/uL Eos # (Auto) 0.2 (0.0-0.4) X10*3/uL Baso # (Auto) 0.0 (0.0-0.2) X10*3/uL Abs Immat Gran (auto) 0.01 (0.00-0.03) X10*3/uL Absolute Neuts (auto) 3.6 (2.0-8.3) x10*3/uL Absolute Nucleated RBC 0.000 (0.0-0.012) X10*3/uL Nucleated RBC % (auto) 0.0 (0.0-0.2) /100WBC Sodium 138 (135-145) mmol/L Potassium 3.9 (3.3-5.1) mmol/L Chloride 103 (96-108) mmol/L Carbon Dioxide 24 (22-29) mmol/L Anion Gap 15 (12-20) BUN 21 H (9-16) mg/dL Creatinine 1.03 (0.5-1.4) mg/dL Estim Creat Clear Calc 54.3 Estimated GFR 55 POC Glucose (60-115) mg/dL Random Glucose 499 H* D (60-115) mg/dL Calcium 8.8 (8.4-10.2) mg/dL Magnesium 1.6 (1.6-2.6) mg/dL Total Bilirubin 0.2 (0.0-1.0) mg/dL AST 10 (5-31) U/L ALT 7 (0-31) U/L Alkaline Phosphatase 84 (39-117) U/L Troponin I High Sens 6.3 (<3.5-17.0) ng/L Total Protein 6.0 L (6.5-8.0) g/dL Albumin 3.5 (3.5-5.0) g/dL Acetone, Qual Negative (Negative) 12/24/21 Range/Units 21:58 WBC (4.8-10.8) X10*3/uL RBC (4.20-5.50) X10*6/uL Hgb (12.0-16.0) g/dl Hct (37.0-47.0) % MCV (80.0-98.0) fL MCH (27.0-33.0) pg MCHC (31.0-35.0) g/dl RDW (11.0-16.0) % Plt Count (160-400) X10*3/uL MPV (9.4-12.3) fL Immature Gran % (Auto) (0.0-0.4) % Neut % (Auto) (45-73) % Lymph % (Auto) (20-40) % Woodruff % (Auto) (2-11) % Eos % (Auto) (0-4) % Baso % (Auto) (0-2) % Lymph # (Auto) (1.2-4.9) X10*3/uL Woodruff # (Auto) (0.1-1.2) X10*3/uL Eos # (Auto) (0.0-0.4) X10*3/uL Baso # (Auto) (0.0-0.2) X10*3/uL Abs Immat Gran (auto) (0.00-0.03) X10*3/uL Absolute Neuts (auto) (2.0-8.3) x10*3/uL Absolute Nucleated RBC (0.0-0.012) X10*3/uL Nucleated RBC % (auto) (0.0-0.2) /100WBC Sodium (135-145) mmol/L Potassium (3.3-5.1) mmol/L Chloride (96-108) mmol/L Carbon Dioxide (22-29) mmol/L Anion Gap (12-20) BUN (9-16) mg/dL Creatinine (0.5-1.4) mg/dL Estim Creat Clear Calc Estimated GFR POC Glucose 290 H (60-115) mg/dL Random Glucose (60-115) mg/dL Calcium (8.4-10.2) mg/dL Magnesium (1.6-2.6) mg/dL Total Bilirubin (0.0-1.0) mg/dL AST (5-31) U/L ALT (0-31) U/L Alkaline Phosphatase (39-117) U/L Troponin I High Sens (<3.5-17.0) ng/L Total Protein (6.5-8.0) g/dL Albumin (3.5-5.0) g/dL Acetone, Qual (Negative) Imaging Data Chest x-ray: Radiologist's impression: FINDINGS: No significant abnormality is noted involving the heart, lungs, mediastinum, bony thorax or soft tissues. XR/XR chest 1V IMPRESSION: Unremarkable examination. ? Discharge Plan Discharge Clinical Impression: Hyperglycemia, Chronic upper back pain Patient Disposition: Home, Self-Care Instructions: Chronic Back Pain (DC), Diabetic Hyperglycemia (ED), Diabetes and Exercise (ED) Additional Instructions: Please follow-up with your primary care physician tomorrow. If you have any worsening or new symptoms, please return to the emergency room or call 911 Prescriptions: New Humalog Mix 50-50 Insuln U-100 100 unit/mL (50-50) suspension 6 unit subcut QAM Qty: 10 0RF No Action hydrochlorothiazide 25 mg tablet 25 mg PO DAILY Qty: 30 0RF Rx Instructions: Must call to schedule a cardiology appointment for more refills - overdue pioglitazone 15 mg tablet 15 mg PO DAILY 30 Days Qty: 30 11RF Trulicity 0.75 mg/0.5 mL pen injector 0.75 mg subcut QWEEK 30 Days Qty: 2.5 3RF (DME) lancets [TRUEplus Lancets] 33 gauge misc See Rx Instructions .Route Qty: 100 11RF Rx Instructions: 4x daily metformin 1,000 mg Tablet 1,000 mg PO BID ferrous sulfate 325 mg (65 mg iron) tablet 325 mg PO BID Qty: 60 0RF clopidogrel [Plavix] 75 mg tablet 75 mg PO DAILY Qty: 30 5RF polyethylene glycol 3350 [Miralax] 17 gram/dose powder 17 g PO DAILY Qty: 238 0RF amlodipine 10 mg Tablet 10 mg PO BEDTIME docusate sodium 100 mg Capsule 100 mg PO BID hydralazine 50 mg Tablet 50 mg PO TID pantoprazole [Protonix] 40 mg tablet,delayed release (DR/EC) 40 mg PO BID@0630,1630 lidocaine [Lidoderm] 5 % Adhesive Patch,Medicated 1 patch TOPICAL DAILY fluticasone propionate 50 mcg/actuation [place],Suspension 2 spray INTRANASAL DAILY acetaminophen [Arthritis Pain Relief (acetam)] 650 mg Tablet Extended Release 650 mg PO Q8H PRN (Reason: Pain (Scale Score 1-3)) Flovent HFA 110 mcg/actuation Hfa Aerosol Inhaler 2 puff INHALATION BID albuterol sulfate 2.5 mg /3 mL (0.083 %) Solution For Nebulization 2.5 mg inhalation Q4H PRN (Reason: shortness of breath/wheeze) Qty: 100 0RF tramadol 50 mg tablet 50 mg PO BID PRN (Reason: pain) Qty: 7 0RF amitriptyline 50 mg tablet 1 tab PO BEDTIME oxycodone-acetaminophen 7.5-325 mg tablet 1 tab PO Q6H PRN (Reason: severe pain) amoxicillin-pot clavulanate 875-125 mg tablet 1 tab PO BID Qty: 20 0RF hydralazine 50 mg tablet 50 mg PO TID Qty: 3 0RF cyclobenzaprine 10 mg tablet 10 mg PO TID Qty: 10 0RF carvedilol [Coreg] 25 mg tablet 25 mg PO BID Rx Instructions: must administer with a meal/food multivitamin Tablet 1 tab PO DAILY lisinopril 40 mg tablet 40 mg PO DAILY gabapentin 800 mg tablet 800 mg PO TID aspirin [Adult Low Dose Aspirin] 81 mg tablet,delayed release (DR/EC) 81 mg PO DAILY escitalopram oxalate [Lexapro] 20 mg tablet 20 mg PO DAILY mirtazapine 45 mg tablet 45 mg PO BEDTIME atorvastatin [Lipitor] 80 mg tablet 80 mg PO BEDTIME Tresiba FlexTouch U-100 100 unit/mL (3 mL) insulin pen 10 unit subcut DAILY (DME) FreeStyle Lite Strips Strip See Rx Instructions Not Applicable QID Qty: 10 Rx Instructions: As directed clotrimazole 1 % cream 1 appl topical BID
--- NOTE | 2021-12-24 21:27 | ECG_ITS ---
Test Reason : CHEST PAIN Blood Pressure : / mmHG Vent. Rate : 100 BPM Atrial Rate : 100 BPM P-R Int : 112 ms QRS Dur : 094 ms QT Int : 356 ms P-R-T Axes : 000 -26 147 degrees QTc Int : 459 ms Sinus tachycardia Left axis deviation Incomplete right bundle branch block Nonspecific T wave abnormality Abnormal ECG When compared with ECG of 29-NOV-2021 21:02, No significant change was found Referred By: Nguyen Carrera Electronically Signed By:SOPHIA STEWARD MD
[2021-12-24] MEDS: 0.9 % Sodium Chloride 2,000 ML 999 ML IVCONT (21:33)
[2021-12-24 21:34] LABS: Acetone, serum QL Negative (Negative)
[2021-12-24] MEDS: Ketorolac Tromethamine 15 MG/ML VIAL IVPUSH (21:35)
[2021-12-24] MEDS: Insulin Regular, Human 100 UNIT/ML 3 ML VIAL 10 UNIT IVPUSH (21:37)
[2021-12-24 22:02] LABS: Glucose, Whole Blood 290 mg/dL (60-115)
[2021-12-24 22:51] VITALS: BP 171/56; PULSE 88; RESP 14; O2SAT 99
== END 2021-12-25 00:41 | disposition home or self-care (01) ==
PROVIDERS: Emergency Provider Emergency Medicine; PCP Family Medicine
DX: R07.89 Other chest pain (principal); M54.2 Cervicalgia; E11.65 Type 2 diabetes mellitus with hyperglycemia; M54.50 Low back pain, unspecified; F17.210 Nicotine dependence, cigarettes, uncomplicated; Z79.4 Long term (current) use of insulin; Z71.6 Tobacco abuse counseling; Z79.899 Other long term (current) drug therapy
CPT/HCPCS: 36415; 71045; 80053; 82009; 82947; 83735; 84484; 85025; 93005; 96374; 96375; 99284; 99285; J1885

== ENCOUNTER 2022-01-21 21:00 | Emergency (ER) | payer MEDICAID, SELFPAY ==
--- NOTE | 2022-01-21 | ECG_ITS ---
Test Reason : BACK PAIN /CHEST PRESSURE Blood Pressure : / mmHG Vent. Rate : 086 BPM Atrial Rate : 086 BPM P-R Int : 122 ms QRS Dur : 082 ms QT Int : 372 ms P-R-T Axes : 041 000 129 degrees QTc Int : 445 ms Normal sinus rhythm Minimal voltage criteria for LVH, may be normal variant ( R in aVL ) T wave abnormality, consider lateral ischemia Abnormal ECG When compared with ECG of 24-DEC-2021 20:47, Vent. rate has decreased Referred By: Elaina Reed Electronically Signed By:CAROLYNE ECHOLS MD
--- NOTE | ~2022-01-21 | XR_ITS ---
EXAMINATION: XR CHEST CLINICAL INFORMATION: Chest pain COMPARISON: Chest xray on 62 TECHNIQUE: Frontal view of the chest was obtained. FINDINGS: No significant abnormality is noted involving the heart, lungs, mediastinum, bony thorax or soft tissues. XR/XR chest 1V IMPRESSION: Unremarkable examination.
--- NOTE | ~2022-01-21 | CT_ITS ---
EXAMINATION: CT ANGIOGRAM OF THE CHEST WITH AND WITHOUT CONTRAST (CT PULMONARY ANGIOGRAM FOR PE) CLINICAL INFORMATION: Reason for Exam l sided pleuritic chest pain COMPARISON: Chest radiograph 01/21/2022. CT angiography chest 01/16/2021. TECHNIQUE: Prior to contrast administration, noncontrast localization images were obtained. Subsequently, multidetector volumetric imaging was performed from the thoracic inlet to below the diaphragms following the administration of 60 mL Omnipaque 350 intravenous contrast. No contrast reaction reported Sagittal, coronal, and MIP oblique sagittal reformatted images were obtained on the CT workstation, uploaded to PACS, and reviewed. This CT examination was performed using dose optimization techniques as appropriate, variously including the following: *Automated exposure control *Adjustment of mA and/or kV according to patient size (this includes techniques or standardized protocols for targeted exams where dose is matched to indication/reason for exam; i.e. extremities or head) *Use of iterative reconstruction technique Total exam dose-length product 328 mGy-cm FINDINGS: QUALITY OF STUDY/CONTRAST BOLUS: Satisfactory. PULMONARY ARTERIES: No central or segmental pulmonary emboli. THORACIC AORTA: Mild scattered calcific atherosclerosis. LUN mm benign subpleural calcified pulmonary granuloma within the left lung base. Minimal posterior dependent atelectasis of the lungs. No endobronchial lesions. PLEURA: No pleural effusion or pneumothorax. MEDIASTINUM: Mild-moderate hiatal hernia. Normal heart size. Partial visualization of mild coronary artery calcific atherosclerosis. No pericardial thickening or pericardial fluid collections. No evidence of septal bowing or right heart strain. CHEST WALL/AXILLA: No axillary or internal mammary lymphadenopathy. OSSEOUS STRUCTURES: No acute or suspicious osseous abnormality. UPPER ABDOMEN: Punctate calcifications within the spleen suspicious for chronic calcified granulomas. No reflux of contrast into the hepatic veins to suggest elevated right heart pressures. CT/CT angio chest PE protocol IMPRESSION: 1. CT pulmonary angiogram negative for pulmonary emboli. 2. No acute cardiopulmonary abnormalities identified. 3. Mild-moderate hiatal hernia VTE: negative
[2022-01-21 21:10] VITALS: BP 170/74; BP 172/84; PULSE 88; RESP 17; TEMP 37.1; O2SAT 97; O2SAT 98; BMI 27.3
--- NOTE | 2022-01-21 21:19 | ED.CHESTPAIN ---
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 This started at rest yesterday. Pain is severe in nature. She notes it got better early today but then became worse again throughout the day and it hurts to breathe. She was not given medications by EMS prior to arrival. She reports some nausea and dyspnea. She denies trauma to her back, b/b incontinence or saddle anesthesia. MD complaint: chest pain (back pain) Pertinent past history: coronary artery disease Onset (ago): hour(s) (24) Timing of current episode: increasing Prior episodes: Yes Onset: during rest Pain location: substernal and other (L posterior ribs) Pain radiation: none Severity: severe Quality: burning and other (pleuritic) Relieving factors: nothing Exacerbating factors: inspiration Context: other (denies precipitating event) Associated symptoms: nausea and dyspnea Treatment prior to arrival: none Related Data Home Medications Medication Instructions Recorded Confirmed metformin 1,000 mg tablet 1,000 mg PO BID 12/22/19 05/07/21 aspirin 81 mg tablet,delayed 81 mg PO DAILY 01/02/20 05/07/21 release (Adult Low Dose Aspirin) atorvastatin 80 mg tablet (Lipitor) 80 mg PO BEDTIME 01/02/20 05/07/21 carvedilol 25 mg tablet (Coreg) 25 mg PO BID 01/02/20 05/07/21 escitalopram oxalate 20 mg tablet 20 mg PO DAILY 01/02/20 05/07/21 (Lexapro) gabapentin 800 mg tablet 800 mg PO TID 01/02/20 05/07/21 insulin degludec 100 unit/mL (3 10 unit subcut DAILY 01/02/20 05/07/21 mL) subcutaneous pen (Tresiba FlexTouch U-100 insulin) lisinopril 40 mg tablet 40 mg PO DAILY 01/02/20 05/07/21 mirtazapine 45 mg tablet 45 mg PO BEDTIME 01/02/20 05/07/21 multivitamin 1 tab PO DAILY 01/02/20 05/07/21 acetaminophen 650 mg 650 mg PO Q8H PRN Pain (Scale 01/16/21 05/07/21 tablet,extended release (Arthritis Score 1-3) Pain Relief (acetaminophen) ER) amlodipine 10 mg tablet 10 mg PO BEDTIME 01/16/21 05/07/21 docusate sodium 100 mg capsule 100 mg PO BID 01/16/21 05/07/21 fluticasone propionate 110 2 puff inhalation BID 01/16/21 05/07/21 mcg/actuation HFA aerosol inhaler (Flovent HFA) fluticasone propionate 50 2 spray intranasal DAILY 01/16/21 05/07/21 mcg/actuation nasal spray,suspension hydralazine 50 mg tablet 50 mg PO TID 01/16/21 05/07/21 lidocaine 5 % topical patch 1 patch topical DAILY 01/16/21 05/07/21 (Lidoderm) pantoprazole 40 mg tablet,delayed 40 mg PO BID@0630,1630 01/16/21 05/07/21 release (Protonix) blood sugar diagnostic (FreeStyle #10 ea 03/30/21 Lite Strips) clotrimazole 1 % topical cream 1 appl topical BID 03/30/21 05/07/21 amitriptyline 50 mg tablet 1 tab PO BEDTIME 05/07/21 05/07/21 oxycodone-acetaminophen 7.5 mg-325 1 tab PO Q6H PRN severe pain 05/07/21 05/07/21 mg tablet Previous Rx's Medication Instructions Recorded ferrous sulfate 325 mg (65 mg 325 mg PO BID #60 tabs 05/24/20 iron) tablet hydrochlorothiazide 25 mg tablet 25 mg PO DAILY #30 tabs 08/13/20 clopidogrel 75 mg tablet (Plavix) 75 mg PO DAILY #30 tabs 12/02/20 pioglitazone 15 mg tablet 15 mg PO DAILY 30 days #30 tabs 12/02/20 albuterol sulfate 2.5 mg/3 mL 2.5 mg (3 mL) inhalation Q4H PRN 01/19/21 (0.083 %) solution for nebulization shortness of breath/wheeze #100 mL tramadol 50 mg tablet 50 mg PO BID PRN pain #7 tabs 05/06/21 amoxicillin 875 mg-potassium 1 tab PO BID #20 tabs 05/09/21 clavulanate 125 mg tablet polyethylene glycol 3350 17 17 g PO DAILY #238 grams 07/12/21 gram/dose oral powder (Miralax) dulaglutide 0.75 mg/0.5 mL 0.75 mg (0.5 mL) subcut QWEEK 30 07/14/21 subcutaneous pen injector days #2.5 mL (Trulicity) lancets 33 gauge (TRUEplus Lancets) #100 ea 07/26/21 hydralazine 50 mg tablet 50 mg PO TID #3 tabs 09/21/21 cyclobenzaprine 10 mg tablet 10 mg PO TID #10 tabs 10/05/21 insulin lispro protamine-lispro 6 unit (0.06 mL) subcut QAM #10 mL 12/25/21 100 unit/mL (50-50) subcutaneous susp (Humalog Mix 50-50 Insuln U-100) cefuroxime axetil 250 mg tablet 250 mg PO BID 7 days #14 tabs 01/22/22 cyclobenzaprine 10 mg tablet 10 mg PO TID PRN muscle spasm #14 01/22/22 tabs Allergies Allergy/AdvReac Type Severity Reaction Status Date / Time latex [LATEX] Allergy Unknown RASH Verified 10/12/21 10:49 naproxen [From NAPROSYN] Allergy Unknown TACHYCARDIA Verified 10/12/21 10:49 Review of Systems Review of Systems: Constitutional : No Weight loss, No Fever, No Chills ENT/Mouth : No sore throat, No Rhinorrhea Eyes: No Eye Pain, No Swelling Cardiovascular : pos Chest Pain, pos SOB, no Dyspnea on Exertion, No Orthopnea, No Edema, No Palpitations Respiratory : No Cough, No Sputum Gastrointestinal : pos Nausea, No Vomiting, No Diarrhea, No abdominal Pain, No Hematochezia, No Melena Genitourinary : No Dysuria, No Urinary Frequency Musculoskeletal : No joint pain, No Myalgias, No Joint Swelling, pos back pain Skin : No Skin Lesions, No rash Neuro : No Weakness, No Numbness, No Dizziness, No Headache Psych : No Anxiety/Panic, No Depression Heme/Lymph: No Bruising, No Lymphadenopathy Endocrine : No Polyuria, No Polydipsia All other systems reviewed and are negative [facility] Past Medical History Attestation statement: The following information was validated with the patient. Medical History Arthritis Asthma CAD (coronary artery disease) Cyst (solitary) of breast Diabetes H. pylori infection HLD (hyperlipidemia) HTN (hypertension) HTN (hypertension) Kidney calculi T2DM (type 2 diabetes mellitus) Vitamin D deficiency Surgical History History of breast surgery History of cardiac cath History of esophagogastroduodenoscopy (EGD) Hx of colonoscopy Family History Family History Mother Diabetes Liver cancer Social History Social History Household Members: Children and Friend(s) Housing: Apartment Do you presently have visiting nurse or other home services: No Alcohol intake: never Patient Tobacco Use Status: Current everyday Tobacco user Tobacco use type: Cigarette Cigarettes Per Day: 2 Years Smoked: 40 +/- e-Cigarette/Vaping Use: Never Used Second Hand Smoke Exposure: No Advance Directives: No Advance Directives Information Provided: No service: No Current occupational status: unemployed and disabled Physical Exam Vital Signs: Vital Signs: Last Vital Signs Temp 98.2 F 01/21/22 23:36 Pulse 75 01/21/22 23:36 Resp 16 01/21/22 23:36 BP 170/76 H 01/21/22 23:36 Pulse Ox 98 01/21/22 23:36 O2 Del Method 01/21/22 23:36 BMI result Body Mass Index 27.3 Appearance: Alert. Oriented X3. No acute distress. Eyes: Pupils equal, round and reactive to light. ENT: Pharynx normal. Neck: Normal inspection. Neck supple. CVS: Normal heart rate and rhythm. Pulses normal. Respiratory: No respiratory distress. Breath sounds normal. states she has pain on left side when she breathes in. Abdomen: Soft and non-tender. Skin: Skin warm and dry. Normal skin color. Normal skin turgor. Extremities: No lower extremity edema. No calf ttp Neuro: Oriented X 3. No motor deficit. No sensory deficit. Course Course Course Narrative: troponin flat and EKG unchanged doubt ACS at this time CTA negative for PE pending UA if negative anticipate DC home no WBC count, afebrile, no vomiting can be treated for UTI at home Medications Administered Discontinued Medications Generic Name Dose Route Start Last Admin Trade Name Nabila PRN Reason Stop Dose Admin Al Hydroxide/Mg Hydroxide 15 ml 01/21/22 23:10 01/21/22 23:46 Magnesium Hydrox/Alum Hydrox 30 Ml Oral.Susp PO 01/21/22 23:11 15 ml ONCE ONE Administration Cefuroxime Axetil 250 mg 01/22/22 00:03 01/22/22 00:20 Cefuroxime Axetil 250 Mg Tablet PO 01/22/22 00:04 250 mg ONCE ONE Administration Magnesium Sulfate 2 gm in 50 mls @ 25 mls/hr 01/21/22 22:01 01/21/22 23:00 Magnesium Sulfate/H2o IV 01/22/22 00:00 25 mls/hr ONCE ONE Administration Iohexol 100 ml 01/21/22 22:52 01/21/22 22:52 Iohexol 350 Mg/Ml 100 Ml Infus..Btl IV 01/21/22 22:53 60 ml ONCE ONE Administration Lidocaine HCl 15 ml 01/21/22 23:10 01/21/22 23:46 Lidocaine Hcl Viscous 2 % 15 Ml Solution MUCOUS MEM 01/21/22 23:11 15 ml ONCE ONE Administration Morphine Sulfate 4 mg 01/21/22 21:15 01/21/22 21:32 Morphine Sulfate 4 Mg/Ml Cartridge IVPUSH 01/21/22 21:16 4 mg ONCE ONE Administration Protocol Ondansetron HCl 4 mg 01/21/22 21:15 01/21/22 21:32 Ondansetron Hcl 4 Mg/2 Ml Vial IVPUSH 01/21/22 21:16 4 mg ONCE ONE Administration Medical Decision Making Medical Decision Making MDM Narrative: 61 yo female with PMH of CAD, PAD, HTN, DM, prior episodes of chest pain but reports worsening chest pain and increasing severity of her symptoms. She has atypical burning chest pain but pleuritic L rib pain. At this time will need labs, ddimer, troponin x 1 given her pain > 6 hours. Will obtain UA and CXR. IV morphine for pain. Has been seen in the past for similar symptoms of chest pain EKG is unchanged at this time and her BP is much lower than on prior presentations when she has had NSTEMI. Dispo per results and findings. Denies infectious symptoms so pneumonia seems less likely. Differential Diagnoses: Differential diagnosis (pleurisy, pulmonary embolus, atypical chest pain, ACS, UTI) Lab Attestation: I reviewed the patient's lab results. Independent interpretation of EKG, rhythm strip, radiology study: Independent interp EKG,rhythm strip, radiology study I performed an independent interpretation of the: EKG and CT Scan (no pneumonia on CT scan seen, no saddle embolus) My interpretation is no acute ischemia unchanged from prior EKG Rate: 86 Rhythm: NSR Mcgregor: normal, LVH Normal P waves. Normal GRETCHEN. Normal QRS complex. ST T wave : no ANGI, inverted t waves in I and aVL qTC: normal prior studies: no change from Dec 24 2021 The study has been interpreted contemporaneously by me. . Independent historian (e.g., spouse, EMS, friend): Independent historian (e.g., spouse, EMS, friend) Prescription medication was considered but ultimately not given after discussion with patient/family. (e.g., pain medication, antiviral, antibiotic): Prescriptions considered but not given I considered prescription management with: Pain Medication (patient already on tramadol) Discharge Plan Discharge Clinical Impression: Acute UTI, Atypical chest pain, Hypomagnesemia Patient Disposition: Home, Self-Care Instructions: Chest Pain (ED), Urinary Tract Infection in Women (ED), Hypomagnesemia (ED) Additional Instructions: regrese si tiene fiebre, v?mitos, dolor intenso, siente que no est? mejorando con el antibi?sylwia. mientras elena antibi?sylwia tome probi?sylwia de venta nathaniel Prescriptions: New cefuroxime axetil 250 mg tablet 250 mg PO BID 7 Days Qty: 14 0RF cyclobenzaprine 10 mg tablet 10 mg PO TID PRN (Reason: muscle spasm) Qty: 14 0RF No Action hydrochlorothiazide 25 mg tablet 25 mg PO DAILY Qty: 30 0RF Rx Instructions: Must call to schedule a cardiology appointment for more refills - overdue pioglitazone 15 mg tablet 15 mg PO DAILY 30 Days Qty: 30 11RF Trulicity 0.75 mg/0.5 mL pen injector 0.75 mg subcut QWEEK 30 Days Qty: 2.5 3RF (DME) lancets [TRUEplus Lancets] 33 gauge misc See Rx Instructions .Route Qty: 100 11RF Rx Instructions: 4x daily metformin 1,000 mg Tablet 1,000 mg PO BID ferrous sulfate 325 mg (65 mg iron) tablet 325 mg PO BID Qty: 60 0RF clopidogrel [Plavix] 75 mg tablet 75 mg PO DAILY Qty: 30 5RF polyethylene glycol 3350 [Miralax] 17 gram/dose powder 17 g PO DAILY Qty: 238 0RF Humalog Mix 50-50 Insuln U-100 100 unit/mL (50-50) suspension 6 unit subcut QAM Qty: 10 0RF amlodipine 10 mg Tablet 10 mg PO BEDTIME docusate sodium 100 mg Capsule 100 mg PO BID hydralazine 50 mg Tablet 50 mg PO TID pantoprazole [Protonix] 40 mg tablet,delayed release (DR/EC) 40 mg PO BID@0630,1630 lidocaine [Lidoderm] 5 % Adhesive Patch,Medicated 1 patch TOPICAL DAILY fluticasone propionate 50 mcg/actuation [place],Suspension 2 spray INTRANASAL DAILY acetaminophen [Arthritis Pain Relief (acetam)] 650 mg Tablet Extended Release 650 mg PO Q8H PRN (Reason: Pain (Scale Score 1-3)) Flovent HFA 110 mcg/actuation Hfa Aerosol Inhaler 2 puff INHALATION BID albuterol sulfate 2.5 mg /3 mL (0.083 %) Solution For Nebulization 2.5 mg inhalation Q4H PRN (Reason: shortness of breath/wheeze) Qty: 100 0RF tramadol 50 mg tablet 50 mg PO BID PRN (Reason: pain) Qty: 7 0RF amitriptyline 50 mg tablet 1 tab PO BEDTIME oxycodone-acetaminophen 7.5-325 mg tablet 1 tab PO Q6H PRN (Reason: severe pain) amoxicillin-pot clavulanate 875-125 mg tablet 1 tab PO BID Qty: 20 0RF hydralazine 50 mg tablet 50 mg PO TID Qty: 3 0RF cyclobenzaprine 10 mg tablet 10 mg PO TID Qty: 10 0RF carvedilol [Coreg] 25 mg tablet 25 mg PO BID Rx Instructions: must administer with a meal/food multivitamin Tablet 1 tab PO DAILY lisinopril 40 mg tablet 40 mg PO DAILY gabapentin 800 mg tablet 800 mg PO TID aspirin [Adult Low Dose Aspirin] 81 mg tablet,delayed release (DR/EC) 81 mg PO DAILY escitalopram oxalate [Lexapro] 20 mg tablet 20 mg PO DAILY mirtazapine 45 mg tablet 45 mg PO BEDTIME atorvastatin [Lipitor] 80 mg tablet 80 mg PO BEDTIME Tresiba FlexTouch U-100 100 unit/mL (3 mL) insulin pen 10 unit subcut DAILY (DME) FreeStyle Lite Strips Strip See Rx Instructions Not Applicable QID Qty: 10 Rx Instructions: As directed clotrimazole 1 % cream 1 appl topical BID Interventions: ED Discharge Assessment Last Done: 01/22/22 00:28 Discharge Date/Time: 01/22/22 00:29 Print Language: [place]an
[2022-01-21] MEDS: ondansetron HCL 4 MG/2 ML VIAL IVPUSH (21:32)
[2022-01-21] MEDS: Morphine Sulfate 4 MG/ML CARTRIDGE IVPUSH (21:32)
[2022-01-21 21:36] LABS: MANUAL DIFF FLAG NO
[2022-01-21 21:38] LABS: Basophils Percent Auto 0.4 % (0-2); Eosinophils Absolute Auto 0.2 X10*3/uL (0.0-0.4); Eosinophils Percent Auto 2.4 % (0-4); Hematocrit 34.1 % (37.0-47.0); Hemoglobin 11.3 g/dl (12.0-16.0); Imm Gran Abs Auto 0.03 X10*3/uL (0.00-0.03); Imm Gran Pct Auto 0.3 % (0.0-0.4); Lymphocytes Absolute Auto 2.2 X10*3/uL (1.2-4.9); Lymphocytes Percent Auto 23.8 % (20-40); Mean Corpuscular HGB Conc 33.1 g/dl (31.0-35.0); Mean Corpuscular Volume 87.4 fL (80.0-98.0); Mean Platelet Volume 9.3 fL (9.4-12.3); Monocytes Absolute Auto 0.6 X10*3/uL (0.1-1.2); Monocytes Percent Auto 6.1 % (2-11); Neutrophils Absolute Auto 6.2 x10*3/uL (2.0-8.3); Platelet Count 253 X10*3/uL (160-400); Red Cell Distribution Width 13.4 % (11.0-16.0); White Blood Count 9.3 X10*3/uL (4.8-10.8)
[2022-01-21 21:43] LABS: INTERNATIONAL NORM RATIO 0.9 (0.9-1.1); Prothrombin Time 10.1 SEC (10.0-13.1)
[2022-01-21 21:45] LABS: D Dimer High Sensitivity 317 NG/ML
[2022-01-21 21:51] LABS: COVID-19 Test Negative (Negative)
[2022-01-21 21:55] LABS: Alanine Aminotransferase 8 U/L (0-31); Albumin Level 3.8 g/dL (3.5-5.0); Alkaline Phosphatase 80 U/L (39-117); Anion Gap 10 (12-20); Aspartate Amino Transferase 9 U/L (5-31); Bilirubin Direct < 0.2 mg/dL (0.0-0.5); Bilirubin Total 0.2 mg/dL (0.0-1.0); Blood Urea Nitrogen 26 mg/dL (9-16); Calcium 9.1 mg/dL (8.4-10.2); Carbon Dioxide 28 mmol/L (22-29); Chloride 104 mmol/L (96-108); Creatinine Clr Calc Pharmacy 36.8; Estimated Glomerular Filt Rate 40; Glucose Random 285 mg/dL (60-115); Lipase 10 U/L (8-78); Magnesium 1.5 mg/dL (1.6-2.6); Potassium 4.1 mmol/L (3.3-5.1); Sodium 138 mmol/L (135-145)
[2022-01-21 21:59] LABS: B Type Natriuretic Peptide 97 pg/mL (<100)
[2022-01-21 22:00] VITALS: BP 178/54; PULSE 79; RESP 16; TEMP 36.7; O2SAT 98
[2022-01-21 22:02] LABS: Troponin-I High Sensitivity 4.8 ng/L (<3.5-17.0)
[2022-01-21] MEDS: iohexoL 350 MG/ML 100 ML INFUS..BTL IV (22:52)
[2022-01-21] MEDS: Magnesium Sulfate/H2O 2 GM/50 ML PIGGYBACK IV (23:00)
[2022-01-21 23:36] VITALS: BP 170/76; PULSE 75; RESP 16; TEMP 36.8; O2SAT 98
[2022-01-21 23:45] LABS: Appearance Urine Clear; Color Urine Yellow; Glucose Urine UA 250 mg/dL (Negative); Leukocyte Esterase Urine Moderate (2+) (Negative); Nitrite Urine Negative (Negative); PH 5.5 (5.0-9.0); Specific Gravity - Urine >= 1.030 (1.005-1.025); UMIC TRIGGER UACC YES; Urine Blood Negative (Negative); Urine Ketones Negative (Negative); Urine Protein 30 (1+) mg/dL (Neg-Trace)
[2022-01-21] MEDS: Lidocaine HCl Viscous 2 % 15 ML SOLUTION MUCOUS MEM (23:46)
[2022-01-21] MEDS: Magnesium Hydrox/Alum Hydrox 30 ML ORAL.SUSP 15 ML PO (23:46)
[2022-01-22 00:01] LABS: Bacteria Urine None Seen (None Seen); UACC Culture Trigger YES; WBC Urine >50 /HPF (0-5)
== END 2022-01-22 00:29 | disposition home or self-care (01) ==
PROVIDERS: Emergency Provider Emergency Medicine
DX: N39.0 Urinary tract infection, site not specified (principal); R07.89 Other chest pain; M54.50 Low back pain, unspecified; E83.42 Hypomagnesemia; R06.02 Shortness of breath; I25.10 Atherosclerotic heart disease of native coronary artery without angina pectoris; F17.210 Nicotine dependence, cigarettes, uncomplicated; Z20.822 Contact with and (suspected) exposure to COVID-19; Z71.6 Tobacco abuse counseling; Z79.899 Other long term (current) drug therapy
CPT/HCPCS: 36415; 71045; 71275; 80048; 80076; 81001; 83690; 83735; 83880; 84484; 85025; 85379; 85610; 87086; 87635; 93005; 96374; 96375; 99284; J2270; J2405; J3475; Q9967

== ENCOUNTER 2022-02-22 13:55 | Emergency (ER) | payer MEDICAID, SELFPAY ==
--- NOTE | ~2022-02-22 | XR_ITS ---
EXAMINATION: XR CHEST CLINICAL INFORMATION: Chest pain COMPARISON: CT chest 01/21/2022 TECHNIQUE: Frontal view of the chest was obtained. FINDINGS: The lungs are well-expanded and clear of acute pneumonic process. There is a 6 mL nodule left midlung. No additional nodules seen. Heart size and pulmonary vascularity is normal. No gross bony or the malleus seen. XR/XR chest 1V IMPRESSION: 6 mm nodule left midlung. It corresponds to calcified granuloma on the CT chest 01/21/2022. No acute cardiopulmonary process seen.
[2022-02-22 14:05] VITALS: BP 190/100; PULSE 80; O2SAT 98
--- NOTE | 2022-02-22 14:06 | ED.GENADULT ---
HPI - General Adult General Chief complaint: Chest Pain <BENJAMÍN Becker - Last Filed: 02/22/22 14:09> Stated complaint: COUGH/CP X 3 DAYS <BENJAMÍN Becker - Last Filed: 02/22/22 14:09> Time Seen by Provider: 02/22/22 14:24 <BENJAMÍN Becker - Last Filed: 02/22/22 14:09> Source: patient <Henry Altman MD - Last Filed: 02/22/22 17:04> Mode of arrival: ambulatory <Henry Altman MD - Last Filed: 02/22/22 17:04> Limitations: language barrier (Polish speaking only) <Henry Altman MD - Last Filed: 02/22/22 17:04> History of Present Illness HPI narrative: 7-year-old female who presents emergency department for evaluation chest pain. The patient states that the pain started 4 days prior. She was cleaning a room when the pain came on gradually. She states that since that time the pain is been constant but waxes and wanes in intensity. The pain is 7/10 at its worst. She has had similar pain in the past and she was told that it was muscular pain. Patient states pain is worse with breathing. The pain does not radiate to her back. She states that yesterday she did have brief left shoulder blade pain but this resolved. Patient denied fever. She states she had chills intermittently. She was feeling lightheaded and dizzy. She has had a cough times 1 day which is nonproductive. She feels short of breath, she denied dyspnea on exertion. She had nausea with 3 episodes of vomiting yesterday she had no diarrhea. She denied myalgias or arthralgias. <Henry Altman MD - Last Filed: 02/22/22 17:04> Related Data Home medications: Home Medications Medication Instructions Recorded Confirmed metformin 1,000 mg tablet 1,000 mg PO BID 12/22/19 05/07/21 aspirin 81 mg tablet,delayed 81 mg PO DAILY 01/02/20 05/07/21 release (Adult Low Dose Aspirin) atorvastatin 80 mg tablet (Lipitor) 80 mg PO BEDTIME 01/02/20 05/07/21 carvedilol 25 mg tablet (Coreg) 25 mg PO BID 01/02/20 05/07/21 escitalopram oxalate 20 mg tablet 20 mg PO DAILY 01/02/20 05/07/21 (Lexapro) gabapentin 800 mg tablet 800 mg PO TID 01/02/20 05/07/21 insulin degludec 100 unit/mL (3 10 unit subcut DAILY 01/02/20 05/07/21 mL) subcutaneous pen (Tresiba FlexTouch U-100 insulin) lisinopril 40 mg tablet 40 mg PO DAILY 01/02/20 05/07/21 mirtazapine 45 mg tablet 45 mg PO BEDTIME 01/02/20 05/07/21 multivitamin 1 tab PO DAILY 01/02/20 05/07/21 acetaminophen 650 mg 650 mg PO Q8H PRN Pain (Scale 01/16/21 05/07/21 tablet,extended release (Arthritis Score 1-3) Pain Relief (acetaminophen) ER) amlodipine 10 mg tablet 10 mg PO BEDTIME 01/16/21 05/07/21 docusate sodium 100 mg capsule 100 mg PO BID 01/16/21 05/07/21 fluticasone propionate 110 2 puff inhalation BID 01/16/21 05/07/21 mcg/actuation HFA aerosol inhaler (Flovent HFA) fluticasone propionate 50 2 spray intranasal DAILY 01/16/21 05/07/21 mcg/actuation nasal spray,suspension hydralazine 50 mg tablet 50 mg PO TID 01/16/21 05/07/21 lidocaine 5 % topical patch 1 patch topical DAILY 01/16/21 05/07/21 (Lidoderm) pantoprazole 40 mg tablet,delayed 40 mg PO BID@0630,1630 01/16/21 05/07/21 release (Protonix) blood sugar diagnostic (FreeStyle #10 ea 03/30/21 Lite Strips) clotrimazole 1 % topical cream 1 appl topical BID 03/30/21 05/07/21 amitriptyline 50 mg tablet 1 tab PO BEDTIME 05/07/21 05/07/21 oxycodone-acetaminophen 7.5 mg-325 1 tab PO Q6H PRN severe pain 05/07/21 05/07/21 mg tablet Previous Rx's Medication Instructions Recorded ferrous sulfate 325 mg (65 mg 325 mg PO BID #60 tabs 05/24/20 iron) tablet hydrochlorothiazide 25 mg tablet 25 mg PO DAILY #30 tabs 08/13/20 clopidogrel 75 mg tablet (Plavix) 75 mg PO DAILY #30 tabs 12/02/20 pioglitazone 15 mg tablet 15 mg PO DAILY 30 days #30 tabs 12/02/20 albuterol sulfate 2.5 mg/3 mL 2.5 mg (3 mL) inhalation Q4H PRN 01/19/21 (0.083 %) solution for nebulization shortness of breath/wheeze #100 mL tramadol 50 mg tablet 50 mg PO BID PRN pain #7 tabs 05/06/21 amoxicillin 875 mg-potassium 1 tab PO BID #20 tabs 05/09/21 clavulanate 125 mg tablet polyethylene glycol 3350 17 17 g PO DAILY #238 grams 07/12/21 gram/dose oral powder (Miralax) dulaglutide 0.75 mg/0.5 mL 0.75 mg (0.5 mL) subcut QWEEK 30 07/14/21 subcutaneous pen injector days #2.5 mL (Trulicity) lancets 33 gauge (TRUEplus Lancets) #100 ea 07/26/21 hydralazine 50 mg tablet 50 mg PO TID #3 tabs 09/21/21 cyclobenzaprine 10 mg tablet 10 mg PO TID #10 tabs 10/05/21 insulin lispro protamine-lispro 6 unit (0.06 mL) subcut QAM #10 mL 12/25/21 100 unit/mL (50-50) subcutaneous susp (Humalog Mix 50-50 Insuln U-100) cefuroxime axetil 250 mg tablet 250 mg PO BID 7 days #14 tabs 01/22/22 cyclobenzaprine 10 mg tablet 10 mg PO TID PRN muscle spasm #14 01/22/22 tabs <BENJAMÍN Becker - Last Filed: 02/22/22 14:09> Allergies/adverse reactions: Allergies Allergy/AdvReac Type Severity Reaction Status Date / Time latex [LATEX] Allergy Unknown RASH Verified 10/12/21 10:49 naproxen [From NAPROSYN] Allergy Unknown TACHYCARDIA Verified 10/12/21 10:49 <BENJAMÍN Becker - Last Filed: 02/22/22 14:09> Review of Systems Review of Systems: Yes all other systems are reviewed and are negative <Henry Altman MD - Last Filed: 02/22/22 17:04> [facility] Past Medical History [facility] Narrative: Social history: She smokes 1-2 cigarettes per day times 45 years. She denies alcohol use. She denies drug use. <Henry Altman MD - Last Filed: 02/22/22 17:04> Medical History: Medical History Arthritis Asthma CAD (coronary artery disease) Cyst (solitary) of breast Diabetes H. pylori infection HLD (hyperlipidemia) HTN (hypertension) HTN (hypertension) Kidney calculi T2DM (type 2 diabetes mellitus) Vitamin D deficiency <BENJAMÍN Becker - Last Filed: 02/22/22 14:09> Surgical History: Surgical History History of breast surgery History of cardiac cath History of esophagogastroduodenoscopy (EGD) Hx of colonoscopy <BENJAMÍN Becker - Last Filed: 02/22/22 14:09> Family History Family History: Family History Mother Diabetes Liver cancer <BENJAMÍN Becker - Last Filed: 02/22/22 14:09> Social History Social History: Social History Household Members: Children and Friend(s) Housing: Apartment Do you presently have visiting nurse or other home services: No Alcohol intake: never Patient Tobacco Use Status: Current everyday Tobacco user Tobacco use type: Cigarette Cigarettes Per Day: 2 Years Smoked: 40 +/- e-Cigarette/Vaping Use: Never Used Second Hand Smoke Exposure: No Advance Directives: No Advance Directives Information Provided: Yes service: No Current occupational status: unemployed and disabled <BENJAMÍN Becker - Last Filed: 02/22/22 14:09> Physical Exam ED Vital Signs: Vital Signs - 24 hr 02/22/22 14:07 02/22/22 14:33 02/22/22 15:23 Temperature 98.0 F 98.3 F Pulse Rate 91 79 73 Respiratory Rate 18 16 20 Blood Pressure 187/80 H 163/69 H 179/73 H Pulse Oximetry 99 99 98 Oxygen Delivery Method Room Air Room Air Room Air BMI result Body Mass Index 27.7 <BENJAMÍN Becker - Last Filed: 02/22/22 14:09> Vital Signs - 24 hr 02/22/22 14:07 02/22/22 14:33 02/22/22 15:23 Temperature 98.0 F 98.3 F Pulse Rate 91 79 73 Respiratory Rate 18 16 20 Blood Pressure 187/80 H 163/69 H 179/73 H Pulse Oximetry 99 99 98 Oxygen Delivery Method Room Air Room Air Room Air BMI result Body Mass Index 27.7 <Henry Altman MD - Last Filed: 02/22/22 17:04> Const General: cooperative and no acute distress <Henry Altman MD - Last Filed: 02/22/22 17:04> Orientation/consciousness: oriented to person and oriented to place <Henry Altman MD - Last Filed: 02/22/22 17:04> Limitations: no limitations <Henry Altman MD - Last Filed: 02/22/22 17:04> HENMT Head: Yes normal to inspection, Yes normocephalic and Yes atraumatic <Henry Altman MD - Last Filed: 02/22/22 17:04> Ears: external ears normal <Henry Altman MD - Last Filed: 02/22/22 17:04> General nose exam: Normal external nose present <Henry Altman MD - Last Filed: 02/22/22 17:04> Face and sinus: Yes normal facial exam <Henry Altman MD - Last Filed: 02/22/22 17:04> Mouth: Normal oral and palatal mucosa present <Henry Altman MD - Last Filed: 02/22/22 17:04> Throat: Yes posterior oropharynx normal <Henry Altman MD - Last Filed: 02/22/22 17:04> Eyes General: appearance normal, both eyes and all related structures <Henry Altman MD - Last Filed: 02/22/22 17:04> Pupils: Equal, round and reactive pupils present <Henry Altman MD - Last Filed: 02/22/22 17:04> Neck Neck: Yes normal visual inspection, Yes no lymphadenopathy, Yes trachea midline and Yes supple <Henry Altman MD - Last Filed: 02/22/22 17:04> Chest Chest palpation & inspection: normal inspection of the chest and tenderness sternum (Moderate) and costochondral junction (Moderate) <Henry Altman MD - Last Filed: 02/22/22 17:04> Resp Effort & Inspection: normal respiratory effort and able to speak in complete sentences <Henry Altman MD - Last Filed: 02/22/22 17:04> Auscultation: clear to auscultation bilaterally <Henry Altman MD - Last Filed: 02/22/22 17:04> Cardio Rate: regular rate <Henry Altman MD - Last Filed: 02/22/22 17:04> Rhythm: regular rhythm <Henry Altman MD - Last Filed: 02/22/22 17:04> Heart sounds: S1 normal heart sound present, S2 normal heart sound present and no murmurs <Henry Altman MD - Last Filed: 02/22/22 17:04> GI Inspection: Yes normal to inspection <Henry Altman MD - Last Filed: 02/22/22 17:04> Palpation (GI): Soft to palpation, nontender and no guarding <Henry Altman MD - Last Filed: 02/22/22 17:04> Auscultation: normal bowel sounds <Henry Altman MD - Last Filed: 02/22/22 17:04> General: Yes no CVA tenderness <Henry Altman MD - Last Filed: 02/22/22 17:04> Back/Spine/Pelvis Back: no CVA tenderness <Henry Altman MD - Last Filed: 02/22/22 17:04> Skin General skin exam: no rashes or lesions noted <Henry Altman MD - Last Filed: 02/22/22 17:04> Neuro General: oriented to person and oriented to place <Henry Altman MD - Last Filed: 02/22/22 17:04> Cranial nerves: Yes CN's II-XII intact bilaterally and Yes Equal, round and reactive pupils present <Henry Altman MD - Last Filed: 02/22/22 17:04> Cognition (Neuro): normal cognition <Henry Altman MD - Last Filed: 02/22/22 17:04> Motor exam (neuro): 5/5 motor strength present throughout <Henry Altman MD - Last Filed: 02/22/22 17:04> Extrem General: Yes normal to inspection <Henry Altman MD - Last Filed: 02/22/22 17:04> Psych Appearance: grossly normal <Henry Altman MD - Last Filed: 02/22/22 17:04> Speech and movement: Normal speech and movement present <Henry Altman MD - Last Filed: 02/22/22 17:04> Affect: normal affect <Henry Altman MD - Last Filed: 02/22/22 17:04> Attitude: cooperative <Henry Altman MD - Last Filed: 02/22/22 17:04> Thought process: Normal thought process present <Henry Altman MD - Last Filed: 02/22/22 17:04> Thought content: Normal thought content present <Henry Altman MD - Last Filed: 02/22/22 17:04> Course Course Course Narrative: RME - 61 yo female with history of stable angina, CAD, HTN, uncontrolled DM2, PAD, hx H. pylor presenting with 3 days of 10/10 reproducible chest pain and cough. Worse with deep inspiration and palpation. Glucose 380 at home. Given ASA 324 en route. Viral swabs, labs, CXR and EKG ordered. <BENJAMÍN Becker - Last Filed: 02/22/22 14:09> Medications Administered Discontinued Medications Generic Name Dose Route Start Last Admin Trade Name Nabila PRN Reason Stop Dose Admin Ketorolac Tromethamine 60 mg 02/22/22 16:14 02/22/22 16:24 Ketorolac Tromethamine 60 Mg/2 Ml Vial IM 02/22/22 16:15 60 mg ONCE ONE Administration <BENJAMÍN Becker - Last Filed: 02/22/22 14:09> Medications Administered Discontinued Medications Generic Name Dose Route Start Last Admin Trade Name Nabila PRN Reason Stop Dose Admin Ketorolac Tromethamine 60 mg 02/22/22 16:14 02/22/22 16:24 Ketorolac Tromethamine 60 Mg/2 Ml Vial IM 02/22/22 16:15 60 mg ONCE ONE Administration <Henry Altman MD - Last Filed: 02/22/22 17:04> Medical Decision Making Medical Decision Making MDM Narrative: 7-year-old female with a history of coronary disease, hyperlipidemia, diabetes presents emergency department for evaluation of 4 days constant chest pressure which waxes and wanes in intensity. Pain came on while she was cleaning a room 4 days prior. Patient states she has had similar pain in the past secondary to musculoskeletal pain. Patient's physical examination did reveal tenderness palpation over sternum and costochondral joints bilaterally. I ordered laboratory evaluation to include CBC, CMP, troponin, COVID-19, RSV and influenza. Twelve EKG and chest x-ray will be obtained as well. Patient was ordered to get Toradol 60 mg IM for pain. 1658: My interpretation of patient's laboratory and radiology evaluation is as follows: Patient has mild anemia with an H&H of 11 and 35. BUN is slightly elevated 20 with a normal creatinine of 0.99. Glucose is elevated 343. Troponin was 8.8. COVID-19, RSV and influenza were negative. The patient's high sensitive troponin I's detectable but not elevated, given the fact that she has had pain for 4 days I do not think that the patient has had myocardial injury I do not think this needs a repeat troponin 3 hours. I did independently interpret the patient's chest x-ray and I do not see any evidence of pneumonia or pneumothorax. Patient's exam did reveal chest wall tenderness is suspect that this is costochondritis or musculoskeletal pain. Patient was advised to take Tylenol and ibuprofen for pain. She was given printed and verbal instructions and discharged home. <Henry Altman MD - Last Filed: 02/22/22 17:04> Differential Diagnosis Differential Diagnoses: The differential diagnosis associated with the presentation includes <Henry Altman MD - Last Filed: 02/22/22 17:04> Differential diagnosis includes was not limited to myocardial infarction, costochondritis, musculoskeletal pain, pneumonia, <Henry Altman MD - Last Filed: 02/22/22 17:04> Lab Data [facility] Lab Attestation statement: I reviewed the patient's lab results. <Henry Altman MD - Last Filed: 02/22/22 17:04> Please see the discussion in MDM <Henry Altman MD - Last Filed: 02/22/22 17:04> Result Diagrams: 02/22/22 15:14 02/22/22 15:14 <BENJAMÍN Becker - Last Filed: 02/22/22 14:09> Labs: Lab Results 02/22/22 02/22/22 02/22/22 Range/Units 15:14 15:14 15:14 WBC 5.6 (4.8-10.8) X10*3/uL RBC 3.99 L (4.20-5.50) X10*6/uL Hgb 11.8 L (12.0-16.0) g/dl Hct 35.1 L (37.0-47.0) % MCV 88.0 (80.0-98.0) fL MCH 29.6 (27.0-33.0) pg MCHC 33.6 (31.0-35.0) g/dl RDW 13.2 (11.0-16.0) % Plt Count 265 (160-400) X10*3/uL MPV 10.0 (9.4-12.3) fL Immature Gran % (Auto) 0.4 (0.0-0.4) % Neut % (Auto) 49.1 (45-73) % Lymph % (Auto) 40.1 H (20-40) % Hall % (Auto) 6.1 (2-11) % Eos % (Auto) 3.4 (0-4) % Baso % (Auto) 0.9 (0-2) % Lymph # (Auto) 2.2 (1.2-4.9) X10*3/uL Hall # (Auto) 0.3 (0.1-1.2) X10*3/uL Eos # (Auto) 0.2 (0.0-0.4) X10*3/uL Baso # (Auto) 0.1 (0.0-0.2) X10*3/uL Abs Immat Gran (auto) 0.02 (0.00-0.03) X10*3/uL Absolute Neuts (auto) 2.7 (2.0-8.3) x10*3/uL Absolute Nucleated RBC 0.000 (0.0-0.012) X10*3/uL Nucleated RBC % (auto) 0.0 (0.0-0.2) /100WBC Sodium 136 (135-145) mmol/L Potassium 4.4 (3.3-5.1) mmol/L Chloride 103 (96-108) mmol/L Carbon Dioxide 27 (22-29) mmol/L Anion Gap 10 L (12-20) BUN 20 H (9-16) mg/dL Creatinine 0.99 (0.5-1.4) mg/dL Estim Creat Clear Calc 50.6 Estimated GFR 57 Random Glucose 343 H (60-115) mg/dL Calcium 9.3 (8.4-10.2) mg/dL Magnesium 1.6 (1.6-2.6) mg/dL Total Bilirubin 0.4 (0.0-1.0) mg/dL Direct Bilirubin < 0.2 (0.0-0.5) mg/dL AST 10 (5-31) U/L ALT 6 (0-31) U/L Alkaline Phosphatase 82 (39-117) U/L Troponin I High Sens 8.8 D (<3.5-17.0) ng/L Total Protein 6.1 L (6.5-8.0) g/dL Albumin 3.7 (3.5-5.0) g/dL Urine Color Urine Appearance Urine pH (5.0-9.0) Ur Specific Angela (1.005-1.025) Urine Protein (Neg-Trace) mg/dL Urine Glucose (UA) (Negative) mg/dL Urine Ketones (Negative) mg/dL Urine Blood (Negative) Urine Nitrite (Negative) Ur Leukocyte Esterase (Negative) Urine RBC (0-2) /HPF Urine WBC (0-5) /HPF Ur Squamous Epith Cells (0-2) /HPF Urine Bacteria (None Seen) Hyaline Casts (0-2) /LPF Influenza Type A (PCR) (Negative) Influenza Type B (PCR) (Negative) RSV RNA Qual (PCR) (Negative) SARS-CoV-2 RNA (RT-PCR) (Negative) 02/22/22 02/22/22 Range/Units 15:14 15:20 WBC (4.8-10.8) X10*3/uL RBC (4.20-5.50) X10*6/uL Hgb (12.0-16.0) g/dl Hct (37.0-47.0) % MCV (80.0-98.0) fL MCH (27.0-33.0) pg MCHC (31.0-35.0) g/dl RDW (11.0-16.0) % Plt Count (160-400) X10*3/uL MPV (9.4-12.3) fL Immature Gran % (Auto) (0.0-0.4) % Neut % (Auto) (45-73) % Lymph % (Auto) (20-40) % Hall % (Auto) (2-11) % Eos % (Auto) (0-4) % Baso % (Auto) (0-2) % Lymph # (Auto) (1.2-4.9) X10*3/uL Hall # (Auto) (0.1-1.2) X10*3/uL Eos # (Auto) (0.0-0.4) X10*3/uL Baso # (Auto) (0.0-0.2) X10*3/uL Abs Immat Gran (auto) (0.00-0.03) X10*3/uL Absolute Neuts (auto) (2.0-8.3) x10*3/uL Absolute Nucleated RBC (0.0-0.012) X10*3/uL Nucleated RBC % (auto) (0.0-0.2) /100WBC Sodium (135-145) mmol/L Potassium (3.3-5.1) mmol/L Chloride (96-108) mmol/L Carbon Dioxide (22-29) mmol/L Anion Gap (12-20) BUN (9-16) mg/dL Creatinine (0.5-1.4) mg/dL Estim Creat Clear Calc Estimated GFR Random Glucose (60-115) mg/dL Calcium (8.4-10.2) mg/dL Magnesium (1.6-2.6) mg/dL Total Bilirubin (0.0-1.0) mg/dL Direct Bilirubin (0.0-0.5) mg/dL AST (5-31) U/L ALT (0-31) U/L Alkaline Phosphatase (39-117) U/L Troponin I High Sens (<3.5-17.0) ng/L Total Protein (6.5-8.0) g/dL Albumin (3.5-5.0) g/dL Urine Color Yellow Urine Appearance Cloudy Urine pH 6.5 (5.0-9.0) Ur Specific Angela 1.020 (1.005-1.025) Urine Protein 100 (2+) H (Neg-Trace) mg/dL Urine Glucose (UA) >=1000 H (Negative) mg/dL Urine Ketones Negative (Negative) mg/dL Urine Blood Negative (Negative) Urine Nitrite Negative (Negative) Ur Leukocyte Esterase Small (1+) H (Negative) Urine RBC 3-5 H (0-2) /HPF Urine WBC 0-5 (0-5) /HPF Ur Squamous Epith Cells 0-2 (0-2) /HPF Urine Bacteria None Seen (None Seen) Hyaline Casts 3-5 (0-2) /LPF Influenza Type A (PCR) NEGATIVE (Negative) Influenza Type B (PCR) NEGATIVE (Negative) RSV RNA Qual (PCR) NEGATIVE (Negative) SARS-CoV-2 RNA (RT-PCR) NEGATIVE (Negative) <BENJAMÍN Becker - Last Filed: 02/22/22 14:09> Lab Results 02/22/22 02/22/22 02/22/22 Range/Units 15:14 15:14 15:14 WBC 5.6 (4.8-10.8) X10*3/uL RBC 3.99 L (4.20-5.50) X10*6/uL Hgb 11.8 L (12.0-16.0) g/dl Hct 35.1 L (37.0-47.0) % MCV 88.0 (80.0-98.0) fL MCH 29.6 (27.0-33.0) pg MCHC 33.6 (31.0-35.0) g/dl RDW 13.2 (11.0-16.0) % Plt Count 265 (160-400) X10*3/uL MPV 10.0 (9.4-12.3) fL Immature Gran % (Auto) 0.4 (0.0-0.4) % Neut % (Auto) 49.1 (45-73) % Lymph % (Auto) 40.1 H (20-40) % Hall % (Auto) 6.1 (2-11) % Eos % (Auto) 3.4 (0-4) % Baso % (Auto) 0.9 (0-2) % Lymph # (Auto) 2.2 (1.2-4.9) X10*3/uL Hall # (Auto) 0.3 (0.1-1.2) X10*3/uL Eos # (Auto) 0.2 (0.0-0.4) X10*3/uL Baso # (Auto) 0.1 (0.0-0.2) X10*3/uL Abs Immat Gran (auto) 0.02 (0.00-0.03) X10*3/uL Absolute Neuts (auto) 2.7 (2.0-8.3) x10*3/uL Absolute Nucleated RBC 0.000 (0.0-0.012) X10*3/uL Nucleated RBC % (auto) 0.0 (0.0-0.2) /100WBC Sodium 136 (135-145) mmol/L Potassium 4.4 (3.3-5.1) mmol/L Chloride 103 (96-108) mmol/L Carbon Dioxide 27 (22-29) mmol/L Anion Gap 10 L (12-20) BUN 20 H (9-16) mg/dL Creatinine 0.99 (0.5-1.4) mg/dL Estim Creat Clear Calc 50.6 Estimated GFR 57 Random Glucose 343 H (60-115) mg/dL Calcium 9.3 (8.4-10.2) mg/dL Magnesium 1.6 (1.6-2.6) mg/dL Total Bilirubin 0.4 (0.0-1.0) mg/dL Direct Bilirubin < 0.2 (0.0-0.5) mg/dL AST 10 (5-31) U/L ALT 6 (0-31) U/L Alkaline Phosphatase 82 (39-117) U/L Troponin I High Sens 8.8 D (<3.5-17.0) ng/L Total Protein 6.1 L (6.5-8.0) g/dL Albumin 3.7 (3.5-5.0) g/dL Urine Color Urine Appearance Urine pH (5.0-9.0) Ur Specific Angela (1.005-1.025) Urine Protein (Neg-Trace) mg/dL Urine Glucose (UA) (Negative) mg/dL Urine Ketones (Negative) mg/dL Urine Blood (Negative) Urine Nitrite (Negative) Ur Leukocyte Esterase (Negative) Urine RBC (0-2) /HPF Urine WBC (0-5) /HPF Ur Squamous Epith Cells (0-2) /HPF Urine Bacteria (None Seen) Hyaline Casts (0-2) /LPF Influenza Type A (PCR) (Negative) Influenza Type B (PCR) (Negative) RSV RNA Qual (PCR) (Negative) SARS-CoV-2 RNA (RT-PCR) (Negative) 02/22/22 02/22/22 Range/Units 15:14 15:20 WBC (4.8-10.8) X10*3/uL RBC (4.20-5.50) X10*6/uL Hgb (12.0-16.0) g/dl Hct (37.0-47.0) % MCV (80.0-98.0) fL MCH (27.0-33.0) pg MCHC (31.0-35.0) g/dl RDW (11.0-16.0) % Plt Count (160-400) X10*3/uL MPV (9.4-12.3) fL Immature Gran % (Auto) (0.0-0.4) % Neut % (Auto) (45-73) % Lymph % (Auto) (20-40) % Hall % (Auto) (2-11) % Eos % (Auto) (0-4) % Baso % (Auto) (0-2) % Lymph # (Auto) (1.2-4.9) X10*3/uL Hall # (Auto) (0.1-1.2) X10*3/uL Eos # (Auto) (0.0-0.4) X10*3/uL Baso # (Auto) (0.0-0.2) X10*3/uL Abs Immat Gran (auto) (0.00-0.03) X10*3/uL Absolute Neuts (auto) (2.0-8.3) x10*3/uL Absolute Nucleated RBC (0.0-0.012) X10*3/uL Nucleated RBC % (auto) (0.0-0.2) /100WBC Sodium (135-145) mmol/L Potassium (3.3-5.1) mmol/L Chloride (96-108) mmol/L Carbon Dioxide (22-29) mmol/L Anion Gap (12-20) BUN (9-16) mg/dL Creatinine (0.5-1.4) mg/dL Estim Creat Clear Calc Estimated GFR Random Glucose (60-115) mg/dL Calcium (8.4-10.2) mg/dL Magnesium (1.6-2.6) mg/dL Total Bilirubin (0.0-1.0) mg/dL Direct Bilirubin (0.0-0.5) mg/dL AST (5-31) U/L ALT (0-31) U/L Alkaline Phosphatase (39-117) U/L Troponin I High Sens (<3.5-17.0) ng/L Total Protein (6.5-8.0) g/dL Albumin (3.5-5.0) g/dL Urine Color Yellow Urine Appearance Cloudy Urine pH 6.5 (5.0-9.0) Ur Specific Angela 1.020 (1.005-1.025) Urine Protein 100 (2+) H (Neg-Trace) mg/dL Urine Glucose (UA) >=1000 H (Negative) mg/dL Urine Ketones Negative (Negative) mg/dL Urine Blood Negative (Negative) Urine Nitrite Negative (Negative) Ur Leukocyte Esterase Small (1+) H (Negative) Urine RBC 3-5 H (0-2) /HPF Urine WBC 0-5 (0-5) /HPF Ur Squamous Epith Cells 0-2 (0-2) /HPF Urine Bacteria None Seen (None Seen) Hyaline Casts 3-5 (0-2) /LPF Influenza Type A (PCR) NEGATIVE (Negative) Influenza Type B (PCR) NEGATIVE (Negative) RSV RNA Qual (PCR) NEGATIVE (Negative) SARS-CoV-2 RNA (RT-PCR) NEGATIVE (Negative) <Henry Altman MD - Last Filed: 02/22/22 17:04> Independent Interpretation I performed an independent interpretation of an: EKG <Henry Altman MD - Last Filed: 02/22/22 17:04> Interpretation: My independent interpretation patient's 12 EKG done at 1405 is as follows: Normal sinus rhythm rate of 90, normal SC, QRS and QTC intervals, less than [address] segment depression in leads 1 in aVL, no Q-waves, no significant T-wave abnormalities, no PACs no PVCs. Compared to EKG dated 02/02/[address] segment depressions are old. There is no acute change. <Henry Altman MD - Last Filed: 02/22/22 17:04> Discharge Plan Discharge Clinical Impression: Acute costochondritis <BENJAMÍN Becker - Last Filed: 02/22/22 14:09> Patient Disposition: Home, Self-Care <BENJAMÍN Becker - Last Filed: 02/22/22 14:09> Instructions: Costochondritis (ED) <BENJAMÍN Becker - Last Filed: 02/22/22 14:09> Additional Instructions: Your blood work was unremarkable. Your troponin was not elevated, this is a good sign and suggests that you did not have a heart attack as the cause of your pain Your chest x-ray was normal. Your COVID-19, RSV and influenza tests were negative. You have significant tenderness and pain when I push on your chest, this is consistent with inflammation of the joints and muscles of your chest, this is called costochondritis. Take ibuprofen 200 mg pills, 3 pills every 6 hours as needed for pain. Take Tylenol (acetaminophen) 500 mg pills, 2 pills every 4 to 6 hours as needed for pain. Follow-up with your doctor in 2 days. Please return to the emergency department if your symptoms get worse or if you develop any symptoms that are concerning to you. <BENJAMÍN Becker - Last Filed: 02/22/22 14:09> Prescriptions: No Action hydrochlorothiazide 25 mg tablet 25 mg PO DAILY Qty: 30 0RF Rx Instructions: Must call to schedule a cardiology appointment for more refills - overdue pioglitazone 15 mg tablet 15 mg PO DAILY 30 Days Qty: 30 11RF Trulicity 0.75 mg/0.5 mL pen injector 0.75 mg subcut QWEEK 30 Days Qty: 2.5 3RF (DME) lancets [TRUEplus Lancets] 33 gauge misc See Rx Instructions .Route Qty: 100 11RF Rx Instructions: 4x daily metformin 1,000 mg Tablet 1,000 mg PO BID ferrous sulfate 325 mg (65 mg iron) tablet 325 mg PO BID Qty: 60 0RF clopidogrel [Plavix] 75 mg tablet 75 mg PO DAILY Qty: 30 5RF polyethylene glycol 3350 [Miralax] 17 gram/dose powder 17 g PO DAILY Qty: 238 0RF Humalog Mix 50-50 Insuln U-100 100 unit/mL (50-50) suspension 6 unit subcut QAM Qty: 10 0RF cefuroxime axetil 250 mg tablet 250 mg PO BID 7 Days Qty: 14 0RF cyclobenzaprine 10 mg tablet 10 mg PO TID PRN (Reason: muscle spasm) Qty: 14 0RF amlodipine 10 mg Tablet 10 mg PO BEDTIME docusate sodium 100 mg Capsule 100 mg PO BID hydralazine 50 mg Tablet 50 mg PO TID pantoprazole [Protonix] 40 mg tablet,delayed release (DR/EC) 40 mg PO BID@0630,1630 lidocaine [Lidoderm] 5 % Adhesive Patch,Medicated 1 patch TOPICAL DAILY fluticasone propionate 50 mcg/actuation [place],Suspension 2 spray INTRANASAL DAILY acetaminophen [Arthritis Pain Relief (acetam)] 650 mg Tablet Extended Release 650 mg PO Q8H PRN (Reason: Pain (Scale Score 1-3)) Flovent HFA 110 mcg/actuation Hfa Aerosol Inhaler 2 puff INHALATION BID albuterol sulfate 2.5 mg /3 mL (0.083 %) Solution For Nebulization 2.5 mg inhalation Q4H PRN (Reason: shortness of breath/wheeze) Qty: 100 0RF tramadol 50 mg tablet 50 mg PO BID PRN (Reason: pain) Qty: 7 0RF amitriptyline 50 mg tablet 1 tab PO BEDTIME oxycodone-acetaminophen 7.5-325 mg tablet 1 tab PO Q6H PRN (Reason: severe pain) amoxicillin-pot clavulanate 875-125 mg tablet 1 tab PO BID Qty: 20 0RF hydralazine 50 mg tablet 50 mg PO TID Qty: 3 0RF cyclobenzaprine 10 mg tablet 10 mg PO TID Qty: 10 0RF carvedilol [Coreg] 25 mg tablet 25 mg PO BID Rx Instructions: must administer with a meal/food multivitamin Tablet 1 tab PO DAILY lisinopril 40 mg tablet 40 mg PO DAILY gabapentin 800 mg tablet 800 mg PO TID aspirin [Adult Low Dose Aspirin] 81 mg tablet,delayed release (DR/EC) 81 mg PO DAILY escitalopram oxalate [Lexapro] 20 mg tablet 20 mg PO DAILY mirtazapine 45 mg tablet 45 mg PO BEDTIME atorvastatin [Lipitor] 80 mg tablet 80 mg PO BEDTIME Tresiba FlexTouch U-100 100 unit/mL (3 mL) insulin pen 10 unit subcut DAILY (DME) FreeStyle Lite Strips Strip See Rx Instructions Not Applicable QID Qty: 10 Rx Instructions: As directed clotrimazole 1 % cream 1 appl topical BID <BENJAMÍN Becker - Last Filed: 02/22/22 14:09> Print Language: Polish <BENJAMÍN Becker - Last Filed: 02/22/22 14:09>
[2022-02-22 14:07] VITALS: BP 187/80; PULSE 91; RESP 18; TEMP 36.7; O2SAT 99; BMI 27.7
--- NOTE | 2022-02-22 14:07 | ECG_ITS ---
Test Reason : CHEST PAIN Blood Pressure : / mmHG Vent. Rate : 090 BPM Atrial Rate : 090 BPM P-R Int : 128 ms QRS Dur : 090 ms QT Int : 374 ms P-R-T Axes : 038 -08 125 degrees QTc Int : 457 ms Normal sinus rhythm Left ventricular hypertrophy with repolarization abnormality ( R in aVL , [place] product ) Abnormal ECG When compared with ECG of 21-JAN-2022 21:13, No significant change was found Referred By: Kae Culp Electronically Signed By:Ghanshyam Daniel
[2022-02-22 14:33] VITALS: BP 163/69; PULSE 79; RESP 16; O2SAT 99
[2022-02-22 15:21] LABS: MANUAL DIFF FLAG NO
[2022-02-22 15:23] VITALS: BP 179/73; PULSE 73; RESP 20; TEMP 36.8; O2SAT 98
[2022-02-22 15:27] LABS: Basophils Absolute Auto 0.1 X10*3/uL (0.0-0.2); Basophils Percent Auto 0.9 % (0-2); Eosinophils Absolute Auto 0.2 X10*3/uL (0.0-0.4); Eosinophils Percent Auto 3.4 % (0-4); Hematocrit 35.1 % (37.0-47.0); Hemoglobin 11.8 g/dl (12.0-16.0); Imm Gran Abs Auto 0.02 X10*3/uL (0.00-0.03); Imm Gran Pct Auto 0.4 % (0.0-0.4); Lymphocytes Absolute Auto 2.2 X10*3/uL (1.2-4.9); Lymphocytes Percent Auto 40.1 % (20-40); Mean Corpuscular HGB Conc 33.6 g/dl (31.0-35.0); Mean Corpuscular Hemoglobin 29.6 pg (27.0-33.0); Monocytes Absolute Auto 0.3 X10*3/uL (0.1-1.2); Monocytes Percent Auto 6.1 % (2-11); Neutrophils Absolute Auto 2.7 x10*3/uL (2.0-8.3); Neutrophils Percent Auto 49.1 % (45-73); Platelet Count 265 X10*3/uL (160-400); Red Blood Count 3.99 X10*6/uL (4.20-5.50); Red Cell Distribution Width 13.2 % (11.0-16.0); White Blood Count 5.6 X10*3/uL (4.8-10.8)
[2022-02-22 15:32] LABS: Appearance Urine Cloudy; Color Urine Yellow; Glucose Urine UA >=1000 mg/dL (Negative); Leukocyte Esterase Urine Small (1+) (Negative); Nitrite Urine Negative (Negative); PH 6.5 (5.0-9.0); UMIC TRIGGER UACC YES; Urine Blood Negative (Negative); Urine Ketones Negative (Negative); Urine Protein 100 (2+) mg/dL (Neg-Trace)
[2022-02-22 15:37] LABS: Alanine Aminotransferase 6 U/L (0-31); Albumin Level 3.7 g/dL (3.5-5.0); Alkaline Phosphatase 82 U/L (39-117); Anion Gap 10 (12-20); Aspartate Amino Transferase 10 U/L (5-31); Bilirubin Direct < 0.2 mg/dL (0.0-0.5); Bilirubin Total 0.4 mg/dL (0.0-1.0); Blood Urea Nitrogen 20 mg/dL (9-16); Calcium 9.3 mg/dL (8.4-10.2); Carbon Dioxide 27 mmol/L (22-29); Chloride 103 mmol/L (96-108); Creatinine Clr Calc Pharmacy 50.6; Estimated Glomerular Filt Rate 57; Glucose Random 343 mg/dL (60-115); Magnesium 1.6 mg/dL (1.6-2.6); Potassium 4.4 mmol/L (3.3-5.1); Sodium 136 mmol/L (135-145); Total Protein 6.1 g/dL (6.5-8.0)
[2022-02-22 15:44] LABS: Troponin-I High Sensitivity 8.8 ng/L (<3.5-17.0)
[2022-02-22 16:00] LABS: Influenza A PCR NEGATIVE (Negative); Influenza B PCR NEGATIVE (Negative); Resp Syncy Virus RNA Qual PCR NEGATIVE (Negative); SARS COV2 PCR INHOUSE NEGATIVE (Negative)
[2022-02-22 16:13] LABS: Bacteria Urine None Seen (None Seen); Squamous Epithelial Cell Urine 0-2 /HPF (0-2); UACC Culture Trigger YES; WBC Urine 0-5 /HPF (0-5)
[2022-02-22] MEDS: Ketorolac Tromethamine 60 MG/2 ML VIAL IM (16:24)
== END 2022-02-22 17:07 | disposition home or self-care (01) ==
PROVIDERS: Physician Assistant; Emergency Provider Emergency Medicine Emergency Medical Services
DX: M94.0 Chondrocostal junction syndrome [Tietze] (principal); E11.9 Type 2 diabetes mellitus without complications; I10 Essential (primary) hypertension; E78.5 Hyperlipidemia, unspecified; F17.210 Nicotine dependence, cigarettes, uncomplicated; Z20.822 Contact with and (suspected) exposure to COVID-19; Z20.828 Contact with and (suspected) exposure to other viral communicable diseases; Z79.84 Long term (current) use of oral hypoglycemic drugs; Z79.02 Long term (current) use of antithrombotics/antiplatelets; Z79.899 Other long term (current) drug therapy; Z79.85 Long-term (current) use of injectable non-insulin antidiabetic drugs
CPT/HCPCS: 0241U; 36415; 71045; 80048; 80076; 81001; 81003; 83735; 84484; 85025; 87086; 93005; 96372; 99284; J1885

== ENCOUNTER 2022-02-28 21:21 | Emergency (ER) | payer MEDICAID, SELFPAY ==
--- NOTE | ~2022-02-28 | CT_ITS ---
EXAMINATION: CT HEAD WITHOUT CONTRAST CLINICAL INFORMATION: Headache. Hypertension. COMPARISON: 11/29/2021 TECHNIQUE: Contiguous axial imaging was performed from the skull base to vertex without intravenous contrast. This CT examination was performed using dose optimization techniques as appropriate, variously including the following: * Automated exposure control * Adjustment of mA and/or kV according to patient size (this includes techniques or standardized protocols for targeted exams where dose is matched to indication/reason for exam; i.e. extremities or head) Use of iterative reconstruction technique DLP: 580 mGy-cm. FINDINGS: There is no evidence of acute intracranial hemorrhage or territorial infarction. No abnormal mass effect or midline shift is seen. Kelly to white matter differentiation is well preserved. No extra-axial fluid collections are identified. No hydrocephalus. No significant volume loss. There is no abnormal attenuation within the brain parenchyma. The osseous structures and soft tissues are normal. Mild mucoperiosteal thickening throughout the bilateral ethmoid air cells. The mastoid air cells and visualized portions of the paranasal sinuses are otherwise well aerated. CT/CT head/brain wo IV con IMPRESSION: No acute intracranial pathology.
--- NOTE | 2022-02-28 21:29 | ECG_ITS ---
Test Reason : CHEST PAIN Blood Pressure : / mmHG Vent. Rate : 084 BPM Atrial Rate : 084 BPM P-R Int : 142 ms QRS Dur : 090 ms QT Int : 380 ms P-R-T Axes : 041 -02 053 degrees QTc Int : 449 ms Normal sinus rhythm Minimal voltage criteria for LVH, may be normal variant ( R in aVL ) Nonspecific ST and T wave abnormality Abnormal ECG When compared with ECG of 22-FEB-2022 14:05, Nonspecific T wave abnormality has replaced inverted T waves in Lateral leads Referred By: Generic ED Physician Electronically Signed By:CAROLYNE ECHOLS MD
[2022-02-28 21:31] VITALS: BP 210/139; BP 241/108; PULSE 80; PULSE 91; RESP 20; TEMP 37.1; O2SAT 98; BMI 27.3
--- NOTE | 2022-02-28 21:38 | ED_ITS ---
HPI - Chest Pain General Chief Complaint: Chest Pain Stated Complaint: Chest Wall Pain for 2 days Time Seen by Provider: 02/28/22 21:31 Source: patient Mode of arrival: ambulatory Limitations: no limitations History of Present Illness HPI narrative: Patient's of anxiety and hypertension was seen here on 02/22 for chest pain is going on for last few days comes in for chest pain or wrist evaluated blood pressure 210/139 repeat blood pressure was 233/87 patient denies any headache no nausea no vomiting patient supposed to be on insulin missed her dose today as she did not have any insulin at home Related Data Home Medications Medication Instructions Recorded Confirmed metformin 1,000 mg tablet 1,000 mg PO BID 12/22/19 05/07/21 aspirin 81 mg tablet,delayed 81 mg PO DAILY 01/02/20 05/07/21 release (Adult Low Dose Aspirin) atorvastatin 80 mg tablet (Lipitor) 80 mg PO BEDTIME 01/02/20 05/07/21 carvedilol 25 mg tablet (Coreg) 25 mg PO BID 01/02/20 05/07/21 escitalopram oxalate 20 mg tablet 20 mg PO DAILY 01/02/20 05/07/21 (Lexapro) gabapentin 800 mg tablet 800 mg PO TID 01/02/20 05/07/21 insulin degludec 100 unit/mL (3 10 unit subcut DAILY 01/02/20 05/07/21 mL) subcutaneous pen (Tresiba FlexTouch U-100 insulin) lisinopril 40 mg tablet 40 mg PO DAILY 01/02/20 05/07/21 mirtazapine 45 mg tablet 45 mg PO BEDTIME 01/02/20 05/07/21 multivitamin 1 tab PO DAILY 01/02/20 05/07/21 acetaminophen 650 mg 650 mg PO Q8H PRN Pain (Scale 01/16/21 05/07/21 tablet,extended release (Arthritis Score 1-3) Pain Relief (acetaminophen) ER) amlodipine 10 mg tablet 10 mg PO BEDTIME 01/16/21 05/07/21 docusate sodium 100 mg capsule 100 mg PO BID 01/16/21 05/07/21 fluticasone propionate 110 2 puff inhalation BID 01/16/21 05/07/21 mcg/actuation HFA aerosol inhaler (Flovent HFA) fluticasone propionate 50 2 spray intranasal DAILY 01/16/21 05/07/21 mcg/actuation nasal spray,suspension hydralazine 50 mg tablet 50 mg PO TID 01/16/21 05/07/21 lidocaine 5 % topical patch 1 patch topical DAILY 01/16/21 05/07/21 (Lidoderm) pantoprazole 40 mg tablet,delayed 40 mg PO BID@0630,1630 01/16/21 05/07/21 release (Protonix) blood sugar diagnostic (FreeStyle #10 ea 03/30/21 Lite Strips) clotrimazole 1 % topical cream 1 appl topical BID 03/30/21 05/07/21 amitriptyline 50 mg tablet 1 tab PO BEDTIME 05/07/21 05/07/21 oxycodone-acetaminophen 7.5 mg-325 1 tab PO Q6H PRN severe pain 05/07/21 05/07/21 mg tablet Previous Rx's Medication Instructions Recorded ferrous sulfate 325 mg (65 mg 325 mg PO BID #60 tabs 05/24/20 iron) tablet hydrochlorothiazide 25 mg tablet 25 mg PO DAILY #30 tabs 08/13/20 clopidogrel 75 mg tablet (Plavix) 75 mg PO DAILY #30 tabs 12/02/20 pioglitazone 15 mg tablet 15 mg PO DAILY 30 days #30 tabs 12/02/20 albuterol sulfate 2.5 mg/3 mL 2.5 mg (3 mL) inhalation Q4H PRN 01/19/21 (0.083 %) solution for nebulization shortness of breath/wheeze #100 mL tramadol 50 mg tablet 50 mg PO BID PRN pain #7 tabs 05/06/21 amoxicillin 875 mg-potassium 1 tab PO BID #20 tabs 05/09/21 clavulanate 125 mg tablet polyethylene glycol 3350 17 17 g PO DAILY #238 grams 07/12/21 gram/dose oral powder (Miralax) dulaglutide 0.75 mg/0.5 mL 0.75 mg (0.5 mL) subcut QWEEK 30 07/14/21 subcutaneous pen injector days #2.5 mL (Trulicity) lancets 33 gauge (TRUEplus Lancets) #100 ea 07/26/21 hydralazine 50 mg tablet 50 mg PO TID #3 tabs 09/21/21 cyclobenzaprine 10 mg tablet 10 mg PO TID #10 tabs 10/05/21 insulin lispro protamine-lispro 6 unit (0.06 mL) subcut QAM #10 mL 12/25/21 100 unit/mL (50-50) subcutaneous susp (Humalog Mix 50-50 Insuln U-100) cefuroxime axetil 250 mg tablet 250 mg PO BID 7 days #14 tabs 01/22/22 cyclobenzaprine 10 mg tablet 10 mg PO TID PRN muscle spasm #14 01/22/22 tabs Allergies Allergy/AdvReac Type Severity Reaction Status Date / Time latex [LATEX] Allergy Unknown RASH Verified 10/12/21 10:49 naproxen [From NAPROSYN] Allergy Unknown TACHYCARDIA Verified 10/12/21 10:49 Review of Systems Review of Systems: Yes all other systems are reviewed and are negative [facility] Past Medical History Medical History Arthritis Asthma CAD (coronary artery disease) Cyst (solitary) of breast Diabetes H. pylori infection HLD (hyperlipidemia) HTN (hypertension) HTN (hypertension) Kidney calculi T2DM (type 2 diabetes mellitus) Vitamin D deficiency Surgical History History of breast surgery History of cardiac cath History of esophagogastroduodenoscopy (EGD) Hx of colonoscopy Family History Family History Mother Diabetes Liver cancer Social History Social History Household Members: Children and Friend(s) Housing: Apartment Do you presently have visiting nurse or other home services: No Alcohol intake: never Patient Tobacco Use Status: Current everyday Tobacco user Tobacco use type: Cigarette Cigarettes Per Day: 2 Years Smoked: 40 +/- e-Cigarette/Vaping Use: Never Used Second Hand Smoke Exposure: No Advance Directives: No service: No Current occupational status: unemployed and disabled Physical Exam Vital Signs: Vital Signs: Last Vital Signs Temp 98.8 F 02/28/22 21:31 Pulse 85 03/01/22 00:09 Resp 18 03/01/22 00:09 BP 156/64 H 03/01/22 00:09 Pulse Ox 100 02/28/22 23:10 O2 Del Method 02/28/22 23:10 BMI result Body Mass Index 27.3 Appearance: Alert. Oriented X3. No acute distress. Eyes: PERRLA, No Nystagmus ENT: Pharynx normal. Oral Mucosa moist Neck: Normal inspection. Neck supple. CVS: Normal heart rate and rhythm. Pulses normal. Respiratory: No respiratory distress. Equal air entry bilateral, no wheezing/rales/rhonchi Abdomen: Soft and nontender. Bowel sounds are present, no mass palpable, no CVA tenderness Skin: Skin warm and dry. Normal skin color. Normal skin turgor. Extremities: No lower extremity edema. No calf tenderness Neuro: Oriented X 3. No motor deficit. Medications Administered Discontinued Medications Generic Name Dose Route Start Last Admin Trade Name Freq PRN Reason Stop Dose Admin Amlodipine Besylate 10 mg 03/01/22 01:17 03/01/22 01:35 Amlodipine Besylate 10 Mg Tablet PO 03/01/22 01:18 10 mg ONCE ONE Administration Protocol Sodium Chloride 1,000 mls @ 999 mls/hr 02/28/22 21:49 02/28/22 21:59 Ns IV 02/28/22 22:49 999 mls/hr .Q1H1M ONE Administration Insulin Human Lispro 10 unit 02/28/22 21:49 02/28/22 21:59 Insulin Lispro 100 Unit/Ml 3 Ml Vial SUBCUT 02/28/22 21:50 10 unit ONCE ONE Administration Lorazepam 1 mg 02/28/22 21:49 02/28/22 21:58 Lorazepam 1 Mg Tablet PO 02/28/22 21:50 1 mg ONCE ONE Administration Tramadol HCl 50 mg 03/01/22 01:18 03/01/22 01:34 Tramadol Hcl 50 Mg Tablet PO 03/01/22 01:19 50 mg ONCE ONE Administration Medical Decision Making Medical Decision Making [facility] Narrative: Patient with anxiety with elevated blood pressure going to patient which gets higher usually when she gets anxiety and stressed. Patient feel depressed no suicidal ideation. CT scan of the head was negative for SAH. Blood pressure improved without any medications. Patient missed her amlodipine and nighttime will give her a dose discharge patient home advised to follow with her PCP Differential Diagnosis Differential Diagnoses: The differential diagnosis associated with the presentation includes Anxiety/extent hypertension/SAH hyperglycemia Lab Data [facility] Lab Attestation statement: I reviewed the patient's lab results. 02/28/22 21:42 02/28/22 21:42 Labs: Lab Results 02/28/22 02/28/22 02/28/22 Range/Units 21:38 21:42 21:42 WBC 7.0 (4.8-10.8) X10*3/uL RBC 4.22 (4.20-5.50) X10*6/uL Hgb 12.1 (12.0-16.0) g/dl Hct 36.4 L (37.0-47.0) % MCV 86.3 (80.0-98.0) fL MCH 28.7 (27.0-33.0) pg MCHC 33.2 (31.0-35.0) g/dl RDW 13.3 (11.0-16.0) % Plt Count 311 (160-400) X10*3/uL MPV 9.7 (9.4-12.3) fL Absolute Nucleated RBC 0.000 (0.0-0.012) X10*3/uL Nucleated RBC % (auto) 0.0 (0.0-0.2) /100WBC Sodium 138 (135-145) mmol/L Potassium 4.3 (3.3-5.1) mmol/L Chloride 106 (96-108) mmol/L Carbon Dioxide 24 (22-29) mmol/L Anion Gap 12 (12-20) BUN 14 (9-16) mg/dL Creatinine 0.87 (0.5-1.4) mg/dL Estim Creat Clear Calc 57.2 Estimated GFR > 60 POC Glucose 379 H* (60-115) mg/dL Random Glucose 378 H* (60-115) mg/dL Calcium 9.3 (8.4-10.2) mg/dL Total Bilirubin 0.3 (0.0-1.0) mg/dL AST 12 (5-31) U/L ALT 7 (0-31) U/L Alkaline Phosphatase 83 (39-117) U/L Troponin I High Sens (<3.5-17.0) ng/L Total Protein 6.7 (6.5-8.0) g/dL Albumin 3.9 (3.5-5.0) g/dL 01/02/28/22 03/01/22 Range/Units 21:42 22:39 00:41 WBC (4.8-10.8) X10*3/uL RBC (4.20-5.50) X10*6/uL Hgb (12.0-16.0) g/dl Hct (37.0-47.0) % MCV (80.0-98.0) fL MCH (27.0-33.0) pg MCHC (31.0-35.0) g/dl RDW (11.0-16.0) % Plt Count (160-400) X10*3/uL MPV (9.4-12.3) fL Absolute Nucleated RBC (0.0-0.012) X10*3/uL Nucleated RBC % (auto) (0.0-0.2) /100WBC Sodium (135-145) mmol/L Potassium (3.3-5.1) mmol/L Chloride (96-108) mmol/L Carbon Dioxide (22-29) mmol/L Anion Gap (12-20) BUN (9-16) mg/dL Creatinine (0.5-1.4) mg/dL Estim Creat Clear Calc Estimated GFR POC Glucose 273 H 79 (60-115) mg/dL Random Glucose (60-115) mg/dL Calcium (8.4-10.2) mg/dL Total Bilirubin (0.0-1.0) mg/dL AST (5-31) U/L ALT (0-31) U/L Alkaline Phosphatase (39-117) U/L Troponin I High Sens 7.1 (<3.5-17.0) ng/L Total Protein (6.5-8.0) g/dL Albumin (3.5-5.0) g/dL Independent Interpretation I performed an independent interpretation of an: EKG Interpretation: Normal sinus rhythm heart rate 84 beats per minute normal axis normal intervals no acute ST changes no acute ischemia Discharge Plan Discharge Clinical Impression: Anxiety, Hypertension, Hyperglycemia due to diabetes mellitus Patient Disposition: Home, Self-Care Additional Instructions: Take medication for anxiety, continue insulin and blood pressure medications Follow-up with PCP and therapist [place] medicamentos para la ansiedad, contin?e con la insulina y los medicamentos para la presi?n arterial. Seguimiento con PCP y terapeuta Prescriptions: No Action hydrochlorothiazide 25 mg tablet 25 mg PO DAILY Qty: 30 0RF Rx Instructions: Must call to schedule a cardiology appointment for more refills - overdue pioglitazone 15 mg tablet 15 mg PO DAILY 30 Days Qty: 30 11RF Trulicity 0.75 mg/0.5 mL pen injector 0.75 mg subcut QWEEK 30 Days Qty: 2.5 3RF (DME) lancets [TRUEplus Lancets] 33 gauge misc See Rx Instructions .Route Qty: 100 11RF Rx Instructions: 4x daily metformin 1,000 mg Tablet 1,000 mg PO BID ferrous sulfate 325 mg (65 mg iron) tablet 325 mg PO BID Qty: 60 0RF clopidogrel [Plavix] 75 mg tablet 75 mg PO DAILY Qty: 30 5RF polyethylene glycol 3350 [Miralax] 17 gram/dose powder 17 g PO DAILY Qty: 238 0RF Humalog Mix 50-50 Insuln U-100 100 unit/mL (50-50) suspension 6 unit subcut QAM Qty: 10 0RF cefuroxime axetil 250 mg tablet 250 mg PO BID 7 Days Qty: 14 0RF cyclobenzaprine 10 mg tablet 10 mg PO TID PRN (Reason: muscle spasm) Qty: 14 0RF amlodipine 10 mg Tablet 10 mg PO BEDTIME docusate sodium 100 mg Capsule 100 mg PO BID hydralazine 50 mg Tablet 50 mg PO TID pantoprazole [Protonix] 40 mg tablet,delayed release (DR/EC) 40 mg PO BID@0630,1630 lidocaine [Lidoderm] 5 % Adhesive Patch,Medicated 1 patch TOPICAL DAILY fluticasone propionate 50 mcg/actuation [place],Suspension 2 spray INTRANASAL DAILY acetaminophen [Arthritis Pain Relief (acetam)] 650 mg Tablet Extended Release 650 mg PO Q8H PRN (Reason: Pain (Scale Score 1-3)) Flovent HFA 110 mcg/actuation Hfa Aerosol Inhaler 2 puff INHALATION BID albuterol sulfate 2.5 mg /3 mL (0.083 %) Solution For Nebulization 2.5 mg inhalation Q4H PRN (Reason: shortness of breath/wheeze) Qty: 100 0RF tramadol 50 mg tablet 50 mg PO BID PRN (Reason: pain) Qty: 7 0RF amitriptyline 50 mg tablet 1 tab PO BEDTIME oxycodone-acetaminophen 7.5-325 mg tablet 1 tab PO Q6H PRN (Reason: severe pain) amoxicillin-pot clavulanate 875-125 mg tablet 1 tab PO BID Qty: 20 0RF hydralazine 50 mg tablet 50 mg PO TID Qty: 3 0RF cyclobenzaprine 10 mg tablet 10 mg PO TID Qty: 10 0RF carvedilol [Coreg] 25 mg tablet 25 mg PO BID Rx Instructions: must administer with a meal/food multivitamin Tablet 1 tab PO DAILY lisinopril 40 mg tablet 40 mg PO DAILY gabapentin 800 mg tablet 800 mg PO TID aspirin [Adult Low Dose Aspirin] 81 mg tablet,delayed release (DR/EC) 81 mg PO DAILY escitalopram oxalate [Lexapro] 20 mg tablet 20 mg PO DAILY mirtazapine 45 mg tablet 45 mg PO BEDTIME atorvastatin [Lipitor] 80 mg tablet 80 mg PO BEDTIME Tresiba FlexTouch U-100 100 unit/mL (3 mL) insulin pen 10 unit subcut DAILY (DME) FreeStyle Lite Strips Strip See Rx Instructions Not Applicable QID Qty: 10 Rx Instructions: As directed clotrimazole 1 % cream 1 appl topical BID
--- NOTE | 2022-02-28 21:46 | PC.NURSE ---
Pt. in room, lying in bed. Pt. reports a headache and anxiety. BP is elevated. MD in room with historic interpreter. IV placed and labs drawn. EKG completed. Pt. POC is also elevated, see labs for number. Pt. ran out of insulin and hasn't taken any today.
[2022-02-28 21:49] LABS: Glucose, Whole Blood 379 mg/dL (60-115)
[2022-02-28 21:52] LABS: Hematocrit 36.4 % (37.0-47.0); Hemoglobin 12.1 g/dl (12.0-16.0); Mean Corpuscular HGB Conc 33.2 g/dl (31.0-35.0); Mean Corpuscular Hemoglobin 28.7 pg (27.0-33.0); Mean Corpuscular Volume 86.3 fL (80.0-98.0); Mean Platelet Volume 9.7 fL (9.4-12.3); Platelet Count 311 X10*3/uL (160-400); Red Blood Count 4.22 X10*6/uL (4.20-5.50); Red Cell Distribution Width 13.3 % (11.0-16.0)
[2022-02-28] MEDS: LORazepam 1 MG TABLET PO (21:58)
[2022-02-28] MEDS: 0.9 % Sodium Chloride 1,000 ML 999 ML IV (21:59)
[2022-02-28] MEDS: Insulin Lispro 100 UNIT/ML 3 ML VIAL 10 UNIT SUBCUT (21:59)
[2022-02-28 22:04] VITALS: BP 198/88; PULSE 83; RESP 15; O2SAT 99
[2022-02-28 22:19] LABS: Troponin-I High Sensitivity 7.1 ng/L (<3.5-17.0)
[2022-02-28 22:20] LABS: Alanine Aminotransferase 7 U/L (0-31); Albumin Level 3.9 g/dL (3.5-5.0); Alkaline Phosphatase 83 U/L (39-117); Anion Gap 12 (12-20); Aspartate Amino Transferase 12 U/L (5-31); Bilirubin Total 0.3 mg/dL (0.0-1.0); Blood Urea Nitrogen 14 mg/dL (9-16); Calcium 9.3 mg/dL (8.4-10.2); Carbon Dioxide 24 mmol/L (22-29); Chloride 106 mmol/L (96-108); Creatinine Clr Calc Pharmacy 57.2; Estimated Glomerular Filt Rate > 60; Potassium 4.3 mmol/L (3.3-5.1); Sodium 138 mmol/L (135-145); Total Protein 6.7 g/dL (6.5-8.0)
[2022-02-28 22:21] LABS: Glucose Random 378 mg/dL (60-115)
[2022-02-28 22:46] LABS: Glucose, Whole Blood 273 mg/dL (60-115)
[2022-02-28 23:10] VITALS: BP 206/134; PULSE 90; RESP 19; O2SAT 100
[2022-03-01 00:09] VITALS: BP 156/64; PULSE 85; RESP 18
[2022-03-01 00:46] LABS: Glucose, Whole Blood 79 mg/dL (60-115)
[2022-03-01] MEDS: traMADoL HCL 50 MG TABLET PO (01:34)
[2022-03-01] MEDS: amLODIPine Besylate 10 MG TABLET PO (01:35)
[2022-03-01 01:38] VITALS: BP 193/73; PULSE 96; RESP 16; O2SAT 98
--- NOTE | 2022-03-01 01:41 | PC.NURSE ---
Pt a&o, no sob or chest pain. Blood pressure is trending down. Reviewed discharge instructions with pt. pt verbalized understanding. 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 Son is transporting pt home. Notified JOANN Gibbons.
--- NOTE | 2022-03-01 03:14 | PC.NURSE ---
2137 Pt. POC was at 379. Spoke to provider and medicated with insulin per APR 2238 Pt. POC down to 273 23:10 Pt. BP noted to be elevated 206/134. notified and hydralazine to be given. Pt. went to CT scan at 2324 so will administer hydralazine upon return to room. Pt. back in room at 00:09. BP noted to have decreased. BP dropped down to 156/64, hydralazine not given and cancelled order. Pt. requesting food and drink. Pt. given gingerale and crackers. Pt. reporting headache at 08/22 and is waiting for a ride for d/c. Pt. was medicated for pain and dc/d.
== END 2022-03-01 03:23 | disposition home or self-care (01) ==
PROVIDERS: Emergency Provider Internal Medicine; PCP Family Medicine
DX: F41.9 Anxiety disorder, unspecified (principal); I10 Essential (primary) hypertension; E11.65 Type 2 diabetes mellitus with hyperglycemia; F32.A Depression, unspecified; E78.5 Hyperlipidemia, unspecified; F17.210 Nicotine dependence, cigarettes, uncomplicated; Z79.82 Long term (current) use of aspirin; Z79.4 Long term (current) use of insulin; Z79.899 Other long term (current) drug therapy
CPT/HCPCS: 36415; 70450; 80053; 82947; 84484; 85027; 93005; 96360; 96361; 99285

== ENCOUNTER 2022-03-09 16:17 | Emergency (ER) | payer MEDICAID, SELFPAY ==
--- NOTE | ~2022-03-09 | XR_ITS ---
EXAMINATION: XR CHEST CLINICAL INFORMATION: Chest pain COMPARISON: Chest x-ray 02/22/2022 TECHNIQUE: PA and lateral chest x-ray. FINDINGS: No airspace consolidation, pleural effusion, or pneumothorax. Unchanged small 4 mm calcified granuloma projecting in the posterior left lower lobe. Cardiomediastinal silhouette within normal limits. No evidence pulmonary edema. Small gas containing retrocardiac density consistent with small hiatal hernia noted. No acute osseous injury. XR/XR chest 2V IMPRESSION: 1. No acute pulmonary process. 2. Small hiatal hernia.
[2022-03-09 16:28] VITALS: BP 206/112; PULSE 94; O2SAT 98
--- NOTE | 2022-03-09 16:50 | ECG_ITS ---
Test Reason : DIZZINESS Blood Pressure : / mmHG Vent. Rate : 081 BPM Atrial Rate : 081 BPM P-R Int : 126 ms QRS Dur : 082 ms QT Int : 388 ms P-R-T Axes : 044 -01 218 degrees QTc Int : 450 ms Poor data quality, interpretation may be adversely affected Normal sinus rhythm Minimal voltage criteria for LVH, may be normal variant ( R in aVL ) Nonspecific ST and T wave abnormality Abnormal ECG When compared with ECG of 28-FEB-2022 21:27, No significant change was found Referred By: Ernie Diaz Electronically Signed By:JM DU
--- NOTE | 2022-03-09 16:53 | ED_ITS ---
HPI - General Adult General Chief complaint: Headache Stated complaint: hypertension Time Seen by Provider: 03/09/22 16:36 Source: patient and old records reviewed Limitations: no limitations History of Present Illness HPI narrative: Patient states she has been having headache, general malaise, and chest pain in the setting of uncontrolled high blood pressure. She denies recent illness or cough. She describes the headache is generalized. She states she has had all these symptoms before when her blood pressures been uncontrolled. She is on multiple different medications but denies any recent adjustments. She states she takes it every day including this morning. No other recent health status changes. She does not know of any inciting or causative factors. Related Data Home Medications Medication Instructions Recorded Confirmed metformin 1,000 mg tablet 1,000 mg PO BID 12/22/19 05/07/21 aspirin 81 mg tablet,delayed 81 mg PO DAILY 01/02/20 05/07/21 release (Adult Low Dose Aspirin) atorvastatin 80 mg tablet (Lipitor) 80 mg PO BEDTIME 01/02/20 05/07/21 carvedilol 25 mg tablet (Coreg) 25 mg PO BID 01/02/20 05/07/21 escitalopram oxalate 20 mg tablet 20 mg PO DAILY 01/02/20 05/07/21 (Lexapro) gabapentin 800 mg tablet 800 mg PO TID 01/02/20 05/07/21 insulin degludec 100 unit/mL (3 10 unit subcut DAILY 01/02/20 05/07/21 mL) subcutaneous pen (Tresiba FlexTouch U-100 insulin) lisinopril 40 mg tablet 40 mg PO DAILY 01/02/20 05/07/21 mirtazapine 45 mg tablet 45 mg PO BEDTIME 01/02/20 05/07/21 multivitamin 1 tab PO DAILY 01/02/20 05/07/21 acetaminophen 650 mg 650 mg PO Q8H PRN Pain (Scale 01/16/21 05/07/21 tablet,extended release (Arthritis Score 1-3) Pain Relief (acetaminophen) ER) amlodipine 10 mg tablet 10 mg PO BEDTIME 01/16/21 05/07/21 docusate sodium 100 mg capsule 100 mg PO BID 01/16/21 05/07/21 fluticasone propionate 110 2 puff inhalation BID 01/16/21 05/07/21 mcg/actuation HFA aerosol inhaler (Flovent HFA) fluticasone propionate 50 2 spray intranasal DAILY 01/16/21 05/07/21 mcg/actuation nasal spray,suspension hydralazine 50 mg tablet 50 mg PO TID 01/16/21 05/07/21 lidocaine 5 % topical patch 1 patch topical DAILY 01/16/21 05/07/21 (Lidoderm) pantoprazole 40 mg tablet,delayed 40 mg PO BID@0630,1630 01/16/21 05/07/21 release (Protonix) blood sugar diagnostic (FreeStyle #10 ea 03/30/21 Lite Strips) clotrimazole 1 % topical cream 1 appl topical BID 03/30/21 05/07/21 amitriptyline 50 mg tablet 1 tab PO BEDTIME 05/07/21 05/07/21 oxycodone-acetaminophen 7.5 mg-325 1 tab PO Q6H PRN severe pain 05/07/21 05/07/21 mg tablet Previous Rx's Medication Instructions Recorded ferrous sulfate 325 mg (65 mg 325 mg PO BID #60 tabs 05/24/20 iron) tablet hydrochlorothiazide 25 mg tablet 25 mg PO DAILY #30 tabs 08/13/20 clopidogrel 75 mg tablet (Plavix) 75 mg PO DAILY #30 tabs 12/02/20 pioglitazone 15 mg tablet 15 mg PO DAILY 30 days #30 tabs 12/02/20 albuterol sulfate 2.5 mg/3 mL 2.5 mg (3 mL) inhalation Q4H PRN 01/19/21 (0.083 %) solution for nebulization shortness of breath/wheeze #100 mL tramadol 50 mg tablet 50 mg PO BID PRN pain #7 tabs 05/06/21 amoxicillin 875 mg-potassium 1 tab PO BID #20 tabs 05/09/21 clavulanate 125 mg tablet polyethylene glycol 3350 17 17 g PO DAILY #238 grams 07/12/21 gram/dose oral powder (Miralax) dulaglutide 0.75 mg/0.5 mL 0.75 mg (0.5 mL) subcut QWEEK 30 07/14/21 subcutaneous pen injector days #2.5 mL (Trulicity) lancets 33 gauge (TRUEplus Lancets) #100 ea 07/26/21 hydralazine 50 mg tablet 50 mg PO TID #3 tabs 09/21/21 cyclobenzaprine 10 mg tablet 10 mg PO TID #10 tabs 10/05/21 insulin lispro protamine-lispro 6 unit (0.06 mL) subcut QAM #10 mL 12/25/21 100 unit/mL (50-50) subcutaneous susp (Humalog Mix 50-50 Insuln U-100) cefuroxime axetil 250 mg tablet 250 mg PO BID 7 days #14 tabs 01/22/22 cyclobenzaprine 10 mg tablet 10 mg PO TID PRN muscle spasm #14 01/22/22 tabs acetaminophen 325 mg tablet 650 mg PO Q6H PRN pain #60 tabs 03/09/22 (Tylenol) clonidine 0.2 mg/24 hr weekly 1 patch transdermal QWEEK #4 ea 03/09/22 transdermal patch Allergies Allergy/AdvReac Type Severity Reaction Status Date / Time latex [LATEX] Allergy Unknown RASH Verified 10/12/21 10:49 naproxen [From NAPROSYN] Allergy Unknown TACHYCARDIA Verified 10/12/21 10:49 Review of Systems Constitutional: Comments: No fevers or chills Eyes: Comments: No change in vision Cardiovascular: Comments: Chest pain which is sharp. Worse with palpation and inspiration. Respiratory: Comments: No cough or dyspnea Gastrointestinal: Comments: No nausea vomiting or abdominal pain Musculoskeletal: Comments: No calf pain Integumentary/Breasts: Comments: No rash or skin changes Neurologic: Comments: No focal weakness PMFSH Past Medical History Medical History Arthritis Asthma CAD (coronary artery disease) Cyst (solitary) of breast Diabetes H. pylori infection HLD (hyperlipidemia) HTN (hypertension) HTN (hypertension) Kidney calculi T2DM (type 2 diabetes mellitus) Vitamin D deficiency Surgical History History of breast surgery History of cardiac cath History of esophagogastroduodenoscopy (EGD) Hx of colonoscopy Family History Family History Mother Diabetes Liver cancer Social History Social History Household Members: Children and Friend(s) Housing: Apartment Do you presently have visiting nurse or other home services: No Alcohol intake: never Patient Tobacco Use Status: Current everyday Tobacco user Tobacco use type: Cigarette Cigarettes Per Day: 2 Years Smoked: 40 +/- Smoked in Last 30 Days: No e-Cigarette/Vaping Use: Never Used Second Hand Smoke Exposure: No Advance Directives: No Advance Directives Information Provided: Yes service: No Current occupational status: unemployed and disabled Physical Exam ED Vital Signs: Vital Signs - 24 hr 03/09/22 17:03 03/09/22 17:23 Temperature 98.0 F 98.4 F Pulse Rate 85 82 Respiratory Rate 16 20 Blood Pressure 166/71 H 180/70 H Pulse Oximetry 99 99 Oxygen Delivery Method Room Air Room Air BMI result Body Mass Index 28.0 Const Other: Awake and alert. No acute distress. Eyes Other: Pupils equal round reactive to light. Neck Other: Supple full range of motion Chest Other: Tender along left sternal border. This reproduces her symptoms. Resp Other: Diminished but clear bilaterally Cardio Other: Regular rate and rhythm without murmurs rubs or gallops GI Other: Soft. Nontender nondistended. No pulsatile mass Skin Other: Warm pink dry without rash Neuro Other: Nonfocal neuro exam Extrem Other: No pedal edema or calf tenderness Medications Administered Discontinued Medications Generic Name Dose Route Start Last Admin Trade Name [place] PRN Reason Stop Dose Admin Clonidine HCl 0.1 mg 03/09/22 17:07 03/09/22 17:27 Clonidine Hcl 0.1 Mg Tablet PO 03/09/22 17:08 0.1 mg ONCE ONE Administration Protocol Medical Decision Making Medical Decision Making MDM Narrative: Patient with multiple symptoms including headache and chest pain in the setting of uncontrolled hypertension at home. Avoid blood pressure reading here. Chest pain is atypical for cardiac presentation but she has risk factors including peripheral vascular disease. Will check an EKG and troponin as well. Routine labs. Assess for potential other end-organ damage. 17:06. EKG, although limited quality with absent V3 and V4 leads, shows J-point elevation in V2 is consistent with prior EKG. No acute ischemic changes noted on this EKG by my interpretation. 17:08. Blood pressure shows a reading of 166/71. It is moderately elevated but not significantly changed from patient's baseline readings in our system. Will treat with clonidine and observed. Await for labs including troponin creatinine 19:03. Workup in the emergency department is reassuring. CBC and chemistries are unremarkable with a normal creatinine and no evidence of end-organ injury. Blood pressure with minimal change after treatment with clonidine. She is due for amlodipine so I will add this now. She states she still has a mild headache. Will order Tylenol. She has recently had a CT scan for similar presentation which was normal. Given she has no new neurologic deficits, I do not think the risk of radiation is worth the unlikely chance that she has a new intracranial abnormality She is stable for discharge home Lab Data 03/09/22 17:39 03/09/22 17:39 Labs: Lab Results 03/09/22 03/09/22 03/09/22 Range/Units 17:39 17:39 17:39 WBC 7.3 (4.8-10.8) X10*3/uL RBC 4.03 L (4.20-5.50) X10*6/uL Hgb 11.7 L (12.0-16.0) g/dl Hct 35.1 L (37.0-47.0) % MCV 87.1 (80.0-98.0) fL MCH 29.0 (27.0-33.0) pg MCHC 33.3 (31.0-35.0) g/dl RDW 13.4 (11.0-16.0) % Plt Count 296 (160-400) X10*3/uL MPV 9.3 L (9.4-12.3) fL Immature Gran % (Auto) 0.1 (0.0-0.4) % Neut % (Auto) 63.9 (45-73) % Lymph % (Auto) 27.1 (20-40) % Graham % (Auto) 5.9 (2-11) % Eos % (Auto) 2.6 (0-4) % Baso % (Auto) 0.4 (0-2) % Lymph # (Auto) 2.0 (1.2-4.9) X10*3/uL [place] # (Auto) 0.4 (0.1-1.2) X10*3/uL Eos # (Auto) 0.2 (0.0-0.4) X10*3/uL Baso # (Auto) 0.0 (0.0-0.2) X10*3/uL Abs Immat Gran (auto) 0.01 (0.00-0.03) X10*3/uL Absolute Neuts (auto) 4.6 (2.0-8.3) x10*3/uL Absolute Nucleated RBC 0.000 (0.0-0.012) X10*3/uL Nucleated RBC % (auto) 0.0 (0.0-0.2) /100WBC PT 10.9 (10.0-13.1) SEC INR 1.0 (0.9-1.1) Sodium 139 (135-145) mmol/L Potassium 3.9 (3.3-5.1) mmol/L Chloride 103 (96-108) mmol/L Carbon Dioxide 27 (22-29) mmol/L Anion Gap 13 (12-20) BUN 18 H (9-16) mg/dL Creatinine 0.95 (0.5-1.4) mg/dL Estim Creat Clear Calc 53.0 Estimated GFR > 60 Random Glucose 326 H (60-115) mg/dL Calcium 9.1 (8.4-10.2) mg/dL Total Bilirubin 0.3 (0.0-1.0) mg/dL AST 8 (5-31) U/L ALT < 6 (0-31) U/L Alkaline Phosphatase 81 (39-117) U/L Troponin I High Sens (<3.5-17.0) ng/L Total Protein 5.9 L (6.5-8.0) g/dL Albumin 3.6 (3.5-5.0) g/dL Influenza Type A (PCR) (Negative) Influenza Type B (PCR) (Negative) RSV RNA Qual (PCR) (Negative) SARS-CoV-2 RNA (RT-PCR) (Negative) 03/09/22 03/09/22 Range/Units 17:39 17:39 WBC (4.8-10.8) X10*3/uL RBC (4.20-5.50) X10*6/uL Hgb (12.0-16.0) g/dl Hct (37.0-47.0) % MCV (80.0-98.0) fL MCH (27.0-33.0) pg MCHC (31.0-35.0) g/dl RDW (11.0-16.0) % Plt Count (160-400) X10*3/uL MPV (9.4-12.3) fL Immature Gran % (Auto) (0.0-0.4) % Neut % (Auto) (45-73) % Lymph % (Auto) (20-40) % [place] % (Auto) (2-11) % Eos % (Auto) (0-4) % Baso % (Auto) (0-2) % Lymph # (Auto) (1.2-4.9) X10*3/uL [place] # (Auto) (0.1-1.2) X10*3/uL Eos # (Auto) (0.0-0.4) X10*3/uL Baso # (Auto) (0.0-0.2) X10*3/uL Abs Immat Gran (auto) (0.00-0.03) X10*3/uL Absolute Neuts (auto) (2.0-8.3) x10*3/uL Absolute Nucleated RBC (0.0-0.012) X10*3/uL Nucleated RBC % (auto) (0.0-0.2) /100WBC PT (10.0-13.1) SEC INR (0.9-1.1) Sodium (135-145) mmol/L Potassium (3.3-5.1) mmol/L Chloride (96-108) mmol/L Carbon Dioxide (22-29) mmol/L Anion Gap (12-20) BUN (9-16) mg/dL Creatinine (0.5-1.4) mg/dL Estim Creat Clear Calc Estimated GFR Random Glucose (60-115) mg/dL Calcium (8.4-10.2) mg/dL Total Bilirubin (0.0-1.0) mg/dL AST (5-31) U/L ALT (0-31) U/L Alkaline Phosphatase (39-117) U/L Troponin I High Sens 5.6 (<3.5-17.0) ng/L Total Protein (6.5-8.0) g/dL Albumin (3.5-5.0) g/dL Influenza Type A (PCR) NEGATIVE (Negative) Influenza Type B (PCR) NEGATIVE (Negative) RSV RNA Qual (PCR) NEGATIVE (Negative) SARS-CoV-2 RNA (RT-PCR) NEGATIVE (Negative) Discharge Plan Discharge Clinical Impression: HTN (hypertension), Headache Patient Disposition: Home, Self-Care Instructions: Acute Headache (ED), Chronic Hypertension (ED) Prescriptions: New clonidine 0.2 mg/24 hr patch weekly 1 patch transdermal QWEEK Qty: 4 0RF acetaminophen [Tylenol] 325 mg tablet 650 mg PO Q6H PRN (Reason: pain) Qty: 60 0RF No Action hydrochlorothiazide 25 mg tablet 25 mg PO DAILY Qty: 30 0RF Rx Instructions: Must call to schedule a cardiology appointment for more refills - overdue pioglitazone 15 mg tablet 15 mg PO DAILY 30 Days Qty: 30 11RF Trulicity 0.75 mg/0.5 mL pen injector 0.75 mg subcut QWEEK 30 Days Qty: 2.5 3RF (DME) lancets [TRUEplus Lancets] 33 gauge misc See Rx Instructions .Route Qty: 100 11RF Rx Instructions: 4x daily metformin 1,000 mg Tablet 1,000 mg PO BID ferrous sulfate 325 mg (65 mg iron) tablet 325 mg PO BID Qty: 60 0RF clopidogrel [Plavix] 75 mg tablet 75 mg PO DAILY Qty: 30 5RF polyethylene glycol 3350 [Miralax] 17 gram/dose powder 17 g PO DAILY Qty: 238 0RF Humalog Mix 50-50 Insuln U-100 100 unit/mL (50-50) suspension 6 unit subcut QAM Qty: 10 0RF cefuroxime axetil 250 mg tablet 250 mg PO BID 7 Days Qty: 14 0RF cyclobenzaprine 10 mg tablet 10 mg PO TID PRN (Reason: muscle spasm) Qty: 14 0RF amlodipine 10 mg Tablet 10 mg PO BEDTIME docusate sodium 100 mg Capsule 100 mg PO BID hydralazine 50 mg Tablet 50 mg PO TID pantoprazole [Protonix] 40 mg tablet,delayed release (DR/EC) 40 mg PO BID@0630,1630 lidocaine [Lidoderm] 5 % Adhesive Patch,Medicated 1 patch TOPICAL DAILY fluticasone propionate 50 mcg/actuation [place],Suspension 2 spray INTRANASAL DAILY acetaminophen [Arthritis Pain Relief (acetam)] 650 mg Tablet Extended Release 650 mg PO Q8H PRN (Reason: Pain (Scale Score 1-3)) Flovent HFA 110 mcg/actuation Hfa Aerosol Inhaler 2 puff INHALATION BID albuterol sulfate 2.5 mg /3 mL (0.083 %) Solution For Nebulization 2.5 mg inhalation Q4H PRN (Reason: shortness of breath/wheeze) Qty: 100 0RF tramadol 50 mg tablet 50 mg PO BID PRN (Reason: pain) Qty: 7 0RF amitriptyline 50 mg tablet 1 tab PO BEDTIME oxycodone-acetaminophen 7.5-325 mg tablet 1 tab PO Q6H PRN (Reason: severe pain) amoxicillin-pot clavulanate 875-125 mg tablet 1 tab PO BID Qty: 20 0RF hydralazine 50 mg tablet 50 mg PO TID Qty: 3 0RF cyclobenzaprine 10 mg tablet 10 mg PO TID Qty: 10 0RF carvedilol [Coreg] 25 mg tablet 25 mg PO BID Rx Instructions: must administer with a meal/food multivitamin Tablet 1 tab PO DAILY lisinopril 40 mg tablet 40 mg PO DAILY gabapentin 800 mg tablet 800 mg PO TID aspirin [Adult Low Dose Aspirin] 81 mg tablet,delayed release (DR/EC) 81 mg PO DAILY escitalopram oxalate [Lexapro] 20 mg tablet 20 mg PO DAILY mirtazapine 45 mg tablet 45 mg PO BEDTIME atorvastatin [Lipitor] 80 mg tablet 80 mg PO BEDTIME Tresiba FlexTouch U-100 100 unit/mL (3 mL) insulin pen 10 unit subcut DAILY (DME) FreeStyle Lite Strips Strip See Rx Instructions Not Applicable QID Qty: 10 Rx Instructions: As directed clotrimazole 1 % cream 1 appl topical BID
[2022-03-09 17:03] VITALS: BP 166/71; PULSE 85; RESP 16; TEMP 36.7; O2SAT 99
[2022-03-09 17:23] VITALS: BP 180/70; PULSE 82; RESP 20; TEMP 36.9; O2SAT 99; BMI 28.0
[2022-03-09] MEDS: cloNIDine HCL 0.1 MG TABLET PO (17:27)
[2022-03-09 17:44] LABS: MANUAL DIFF FLAG NO
[2022-03-09 17:52] LABS: Prothrombin Time 10.9 SEC (10.0-13.1)
[2022-03-09 17:56] LABS: Basophils Percent Auto 0.4 % (0-2); Eosinophils Absolute Auto 0.2 X10*3/uL (0.0-0.4); Eosinophils Percent Auto 2.6 % (0-4); Hematocrit 35.1 % (37.0-47.0); Hemoglobin 11.7 g/dl (12.0-16.0); Imm Gran Abs Auto 0.01 X10*3/uL (0.00-0.03); Imm Gran Pct Auto 0.1 % (0.0-0.4); Lymphocytes Percent Auto 27.1 % (20-40); Mean Corpuscular HGB Conc 33.3 g/dl (31.0-35.0); Mean Corpuscular Volume 87.1 fL (80.0-98.0); Mean Platelet Volume 9.3 fL (9.4-12.3); Monocytes Absolute Auto 0.4 X10*3/uL (0.1-1.2); Monocytes Percent Auto 5.9 % (2-11); Neutrophils Absolute Auto 4.6 x10*3/uL (2.0-8.3); Neutrophils Percent Auto 63.9 % (45-73); Platelet Count 296 X10*3/uL (160-400); Red Blood Count 4.03 X10*6/uL (4.20-5.50); Red Cell Distribution Width 13.4 % (11.0-16.0); White Blood Count 7.3 X10*3/uL (4.8-10.8)
[2022-03-09 18:00] LABS: Alanine Aminotransferase < 6 U/L (0-31); Albumin Level 3.6 g/dL (3.5-5.0); Alkaline Phosphatase 81 U/L (39-117); Anion Gap 13 (12-20); Aspartate Amino Transferase 8 U/L (5-31); Bilirubin Total 0.3 mg/dL (0.0-1.0); Blood Urea Nitrogen 18 mg/dL (9-16); Calcium 9.1 mg/dL (8.4-10.2); Carbon Dioxide 27 mmol/L (22-29); Chloride 103 mmol/L (96-108); Estimated Glomerular Filt Rate > 60; Glucose Random 326 mg/dL (60-115); Potassium 3.9 mmol/L (3.3-5.1); Sodium 139 mmol/L (135-145); Total Protein 5.9 g/dL (6.5-8.0)
[2022-03-09 18:06] LABS: Troponin-I High Sensitivity 5.6 ng/L (<3.5-17.0)
[2022-03-09 18:22] LABS: Influenza A PCR NEGATIVE (Negative); Influenza B PCR NEGATIVE (Negative); Resp Syncy Virus RNA Qual PCR NEGATIVE (Negative); SARS COV2 PCR INHOUSE NEGATIVE (Negative)
[2022-03-09 19:13] LABS: B Type Natriuretic Peptide 125 pg/mL (<100)
[2022-03-09 19:26] VITALS: BP 129/65; PULSE 81; RESP 18; O2SAT 100
[2022-03-09] MEDS: Acetaminophen 325 MG TABLET 650 MG PO (19:37)
--- NOTE | 2022-03-09 19:51 | PC.NURSE ---
report received from JOANN Styles pt is alert and oriented resting in bed no signs of acute distress notice per provider to hold [facility]
== END 2022-03-09 19:53 | disposition home or self-care (01) ==
PROVIDERS: Emergency Provider Emergency Medicine; PCP Family Medicine
DX: I10 Essential (primary) hypertension (principal); R51.9 Headache, unspecified; Z20.822 Contact with and (suspected) exposure to COVID-19; Z20.828 Contact with and (suspected) exposure to other viral communicable diseases; E11.9 Type 2 diabetes mellitus without complications; E78.5 Hyperlipidemia, unspecified; F17.210 Nicotine dependence, cigarettes, uncomplicated; Z79.899 Other long term (current) drug therapy; Z79.82 Long term (current) use of aspirin; Z79.84 Long term (current) use of oral hypoglycemic drugs; Z79.85 Long-term (current) use of injectable non-insulin antidiabetic drugs
CPT/HCPCS: 0241U; 36415; 71046; 80053; 83880; 84484; 85025; 85610; 93005; 99283; 99284

== ENCOUNTER 2022-03-24 14:28 | Outpatient (REF) | payer MEDICAID, SELFPAY ==
--- NOTE | ~2022-03-24 | US_ITS ---
EXAMINATION: ANKLE-BRACHIAL INDICES SINGLE LEVEL PULSE VOLUME RECORDING ARTERIAL DUPLEX BILATERAL LEGS CLINICAL INFORMATION: Peripheral arterial disease. COMPARISON: 10/07/2021 TECHNIQUE: Ankle-brachial indices and PVR at the ankle were obtained. Duplex Doppler of the bilateral lower extremity arterial systems was performed. FINDINGS: RIGHT: Ankle-brachial index: 0.56 PVR: Abnormal Common femoral: PSV 206 cm/s. Monophasic waveform. Deep femoral: PSV 224 cm/s. Monophasic waveform. Proximal superficial femoral: [place]. Mid superficial femoral: Occluded. Distal superficial femoral: PSV 53 cm/s. Monophasic waveform. Popliteal: PSV 129 cm/s. Monophasic waveform. Posterior tibial: PSV 70 cm/s. Monophasic waveform. Peroneal: PSV 22 cm/s. Monophasic waveform. LEFT: Ankle-brachial index: 0.94 PVR: Normal Common femoral: PSV 107 cm/s. Biphasic waveform. Deep femoral: Not visualized. Proximal superficial femoral: Occluded. Mid superficial femoral: Occluded. Distal superficial femoral: Occluded. Femoral bypass graft: [place] inflow: PSV 130 cm/s. Biphasic waveform. Proximal anastomosis: PSV 232 cm/s. Biphasic waveform. Proximal graft: PSV 89 cm/s. Biphasic waveform. Mid graft: PSV 62 cm/s. Biphasic waveform. Distal graft: PSV 56 cm/s. Biphasic waveform. Distal anastomosis: PSV 250 cm/s. Biphasic waveform. [place] outflow: PSV 112 cm/s. Biphasic waveform. Popliteal: PSV 112 cm/s. Biphasic waveform. Posterior tibial: PSV 42 cm/s. Biphasic waveform. Peroneal: PSV 49 cm/s. Biphasic waveform. US/US [place] complete IMPRESSION: Right: Moderate peripheral arterial disease by [place] and PVR. Chronically occluded SFA. Monophasic waveforms throughout the right lower extremity. Left: Mild peripheral arterial disease by [place] and PVR. Chronically occluded SFA. Patent bypass graft. Stable elevated velocity at the proximal anastomosis suggesting possible stenosis. Newly elevated velocity at the distal anastomosis suggesting possible stenosis. Biphasic waveforms throughout the left lower extremity.
--- NOTE | ~2022-03-24 | US_ITS ---
EXAMINATION: ANKLE-BRACHIAL INDICES SINGLE LEVEL PULSE VOLUME RECORDING ARTERIAL DUPLEX BILATERAL LEGS CLINICAL INFORMATION: Peripheral arterial disease. COMPARISON: 10/07/2021 TECHNIQUE: Ankle-brachial indices and PVR at the ankle were obtained. Duplex Doppler of the bilateral lower extremity arterial systems was performed. FINDINGS: RIGHT: Ankle-brachial index: 0.56 PVR: Abnormal Common femoral: PSV 206 cm/s. Monophasic waveform. Deep femoral: PSV 224 cm/s. Monophasic waveform. Proximal superficial femoral: [place]. Mid superficial femoral: [place]. Distal superficial femoral: PSV 53 cm/s. Monophasic waveform. Popliteal: PSV 129 cm/s. Monophasic waveform. Posterior tibial: PSV 70 cm/s. Monophasic waveform. Peroneal: PSV 22 cm/s. Monophasic waveform. LEFT: Ankle-brachial index: 0.94 PVR: Normal Common femoral: PSV 107 cm/s. Biphasic waveform. Deep femoral: Not visualized. Proximal superficial femoral: [place]. Mid superficial femoral: [place]. Distal superficial femoral: [place]cluded. Femoral bypass graft: [place] inflow: PSV 130 cm/s. Biphasic waveform. Proximal anastomosis: PSV 232 cm/s. Biphasic waveform. Proximal graft: PSV 89 cm/s. Biphasic waveform. Mid graft: PSV 62 cm/s. Biphasic waveform. Distal graft: PSV 56 cm/s. Biphasic waveform. Distal anastomosis: PSV 250 cm/s. Biphasic waveform. [place] outflow: PSV 112 cm/s. Biphasic waveform. Popliteal: PSV 112 cm/s. Biphasic waveform. Posterior tibial: PSV 42 cm/s. Biphasic waveform. Peroneal: PSV 49 cm/s. Biphasic waveform. US/US arterial duplex LE BI IMPRESSION: Right: Moderate peripheral arterial disease by [place] and PVR. Chronically occluded SFA. Monophasic waveforms throughout the right lower extremity. Left: Mild peripheral arterial disease by [place] and PVR. Chronically occluded SFA. Patent bypass graft. Stable elevated velocity at the proximal anastomosis suggesting possible stenosis. Newly elevated velocity at the distal anastomosis suggesting possible stenosis. Biphasic waveforms throughout the left lower extremity.
== END 2022-03-24 14:29 | disposition home or self-care (01) ==
LOC: HO.US 14:28
PROVIDERS: Visit Provider Surgery Vascular Surgery
DX: I73.9 Peripheral vascular disease, unspecified (principal)
CPT/HCPCS: 93923; 93925

== ENCOUNTER → 2022-03-31 13:14 | Outpatient (BNVA) | payer MEDICAID, SELFPAY | PROVIDERS: PCP Family Medicine; Visit Provider Surgery Vascular Surgery | DX: I73.9 Peripheral vascular disease, unspecified (principal) | CPT/HCPCS: 99212 ==

== ENCOUNTER 2022-04-03 19:38 | Emergency (ER) | payer MEDICAID, SELFPAY ==
--- NOTE | 2022-04-03 | ECG_ITS ---
Test Reason : ABDOMINAL PAIN Blood Pressure : / mmHG Vent. Rate : 077 BPM Atrial Rate : 077 BPM P-R Int : 124 ms QRS Dur : 082 ms QT Int : 390 ms P-R-T Axes : 039 -07 161 degrees QTc Int : 441 ms Normal sinus rhythm Left ventricular hypertrophy with repolarization abnormality ( R in aVL ) Nonspecific ST and T wave abnormality Abnormal ECG When compared with ECG of 09-MAR-2022 17:01, Nonspecific T wave abnormality, improved in Inferior leads Referred By: Generic ED Physician Electronically Signed By:JM DU
--- NOTE | ~2022-04-03 | CT_ITS ---
EXAMINATION: CT ABDOMEN AND PELVIS WITHOUT CONTRAST CLINICAL INFORMATION: Left-sided pain COMPARISON: 01/16/2020 TECHNIQUE: Multidetector volumetric imaging was performed from the superior aspect of the liver through the pubic symphysis. Sagittal and coronal reformatted images were obtained on the technologist's workstation. This CT examination was performed using dose optimization techniques as appropriate, variously including the following: *Automated exposure control *Adjustment of mA and/or kV according to patient size (this includes techniques or standardized protocols for targeted exams where dose is matched to indication/reason for exam; i.e. extremities or head) *Use of iterative reconstruction technique DLP: 431 mGy-cm FINDINGS: LUNG BASES: The visualized lung bases are unremarkable. Large axial type hiatus hernia. LIVER, GALLBLADDER, AND BILIARY TREE: The liver is normal in size, shape, and attenuation. No focal hepatic lesion or biliary ductal dilatation is present. The gallbladder is unremarkable with no evidence of radiopaque gallstones, gallbladder wall thickening, or obvious pericholecystic inflammatory changes. Incidental granulomata. PANCREAS: Unremarkable. SPLEEN: Incidental granulomata ADRENAL GLANDS: Unremarkable. KIDNEYS AND URETERS: The kidneys are normal in size, shape, and attenuation. No hydronephrosis, hydroureter, or calculi seen. No perinephric stranding. BLADDER: Unremarkable. GASTROINTESTINAL TRACT: The small and large bowel are notable for moderate stool retention.. The appendix is unremarkable. ABDOMINAL WALL: No significant hernia is appreciated. LYMPH NODES: Normal. VASCULAR: Unremarkable. PELVIC VISCERA: Unremarkable. OSSEOUS STRUCTURES: Unremarkable. CT/CT abdomen pelvis wo IV con IMPRESSION: No stones or obstructive uropathy. No focal abnormality to explain patient's symptoms. Incidental findings as above. Fleischner guidelines were followed.
[2022-04-03 19:42] VITALS: BP 190/90; PULSE 85; O2SAT 98
[2022-04-03 19:48] VITALS: BP 174/75; PULSE 85; RESP 15; TEMP 36.8; O2SAT 99; BMI 25.6
[2022-04-03 20:02] LABS: Glucose, Whole Blood 227 mg/dL (60-115)
[2022-04-03 20:39] LABS: MANUAL DIFF FLAG NO
[2022-04-03 20:42] LABS: Basophils Percent Auto 0.5 % (0-2); Eosinophils Absolute Auto 0.1 X10*3/uL (0.0-0.4); Eosinophils Percent Auto 2.2 % (0-4); Hematocrit 35.6 % (37.0-47.0); Imm Gran Abs Auto 0.01 X10*3/uL (0.00-0.03); Imm Gran Pct Auto 0.2 % (0.0-0.4); Lymphocytes Percent Auto 32.9 % (20-40); Mean Corpuscular HGB Conc 33.7 g/dl (31.0-35.0); Mean Corpuscular Hemoglobin 29.3 pg (27.0-33.0); Mean Corpuscular Volume 86.8 fL (80.0-98.0); Mean Platelet Volume 9.2 fL (9.4-12.3); Monocytes Absolute Auto 0.4 X10*3/uL (0.1-1.2); Neutrophils Absolute Auto 3.5 x10*3/uL (2.0-8.3); Neutrophils Percent Auto 58.2 % (45-73); Platelet Count 276 X10*3/uL (160-400); Red Cell Distribution Width 13.3 % (11.0-16.0)
[2022-04-03 20:57] LABS: Alanine Aminotransferase 8 U/L (0-31); Albumin Level 3.7 g/dL (3.5-5.0); Alkaline Phosphatase 76 U/L (39-117); Anion Gap 11 (12-20); Aspartate Amino Transferase 10 U/L (5-31); Bilirubin Direct 0.2 mg/dL (0.0-0.5); Bilirubin Total 0.6 mg/dL (0.0-1.0); Blood Urea Nitrogen 11 mg/dL (9-16); Carbon Dioxide 27 mmol/L (22-29); Chloride 104 mmol/L (96-108); Creatinine Clr Calc Pharmacy 70.7; Estimated Glomerular Filt Rate > 60; Glucose Random 246 mg/dL (60-115); Lipase 10 U/L (8-78); Potassium 3.9 mmol/L (3.3-5.1); Sodium 138 mmol/L (135-145); Total Protein 5.8 g/dL (6.5-8.0)
--- NOTE | 2022-04-03 21:27 | ED_ITS ---
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 Pain has been constant for the past 3 days, associated with nausea, no shortness of breath. No vomiting or diarrhea with normal bowel movement today. No fever or chills, no dysuria or frequency urination. Related Data Home Medications Medication Instructions Recorded Confirmed metformin 1,000 mg tablet 1,000 mg PO BID 12/22/19 05/07/21 aspirin 81 mg tablet,delayed 81 mg PO DAILY 01/02/20 05/07/21 release (Adult Low Dose Aspirin) atorvastatin 80 mg tablet (Lipitor) 80 mg PO BEDTIME 01/02/20 05/07/21 carvedilol 25 mg tablet (Coreg) 25 mg PO BID 01/02/20 05/07/21 escitalopram oxalate 20 mg tablet 20 mg PO DAILY 01/02/20 05/07/21 (Lexapro) gabapentin 800 mg tablet 800 mg PO TID 01/02/20 05/07/21 insulin degludec 100 unit/mL (3 10 unit subcut DAILY 01/02/20 05/07/21 mL) subcutaneous pen (Tresiba FlexTouch U-100 insulin) lisinopril 40 mg tablet 40 mg PO DAILY 01/02/20 05/07/21 mirtazapine 45 mg tablet 45 mg PO BEDTIME 01/02/20 05/07/21 multivitamin 1 tab PO DAILY 01/02/20 05/07/21 acetaminophen 650 mg 650 mg PO Q8H PRN Pain (Scale 01/16/21 05/07/21 tablet,extended release (Arthritis Score 1-3) Pain Relief (acetaminophen) ER) amlodipine 10 mg tablet 10 mg PO BEDTIME 01/16/21 05/07/21 docusate sodium 100 mg capsule 100 mg PO BID 01/16/21 05/07/21 fluticasone propionate 110 2 puff inhalation BID 01/16/21 05/07/21 mcg/actuation HFA aerosol inhaler (Flovent HFA) fluticasone propionate 50 2 spray intranasal DAILY 01/16/21 05/07/21 mcg/actuation nasal spray,suspension hydralazine 50 mg tablet 50 mg PO TID 01/16/21 05/07/21 lidocaine 5 % topical patch 1 patch topical DAILY 01/16/21 05/07/21 (Lidoderm) pantoprazole 40 mg tablet,delayed 40 mg PO BID@0630,1630 01/16/21 05/07/21 release (Protonix) blood sugar diagnostic (FreeStyle #10 ea 03/30/21 Lite Strips) clotrimazole 1 % topical cream 1 appl topical BID 03/30/21 05/07/21 amitriptyline 50 mg tablet 1 tab PO BEDTIME 05/07/21 05/07/21 oxycodone-acetaminophen 7.5 mg-325 1 tab PO Q6H PRN severe pain 05/07/21 05/07/21 mg tablet Previous Rx's Medication Instructions Recorded ferrous sulfate 325 mg (65 mg 325 mg PO BID #60 tabs 05/24/20 iron) tablet hydrochlorothiazide 25 mg tablet 25 mg PO DAILY #30 tabs 08/13/20 clopidogrel 75 mg tablet (Plavix) 75 mg PO DAILY #30 tabs 12/02/20 pioglitazone 15 mg tablet 15 mg PO DAILY 30 days #30 tabs 12/02/20 albuterol sulfate 2.5 mg/3 mL 2.5 mg (3 mL) inhalation Q4H PRN 01/19/21 (0.083 %) solution for nebulization shortness of breath/wheeze #100 mL tramadol 50 mg tablet 50 mg PO BID PRN pain #7 tabs 05/06/21 amoxicillin 875 mg-potassium 1 tab PO BID #20 tabs 05/09/21 clavulanate 125 mg tablet polyethylene glycol 3350 17 17 g PO DAILY #238 grams 07/12/21 gram/dose oral powder (Miralax) dulaglutide 0.75 mg/0.5 mL 0.75 mg (0.5 mL) subcut QWEEK 30 07/14/21 subcutaneous pen injector days #2.5 mL (Trulicity) lancets 33 gauge (TRUEplus Lancets) #100 ea 07/26/21 hydralazine 50 mg tablet 50 mg PO TID #3 tabs 09/21/21 cyclobenzaprine 10 mg tablet 10 mg PO TID #10 tabs 10/05/21 insulin lispro protamine-lispro 6 unit (0.06 mL) subcut QAM #10 mL 12/25/21 100 unit/mL (50-50) subcutaneous susp (Humalog Mix 50-50 Insuln U-100) cefuroxime axetil 250 mg tablet 250 mg PO BID 7 days #14 tabs 01/22/22 cyclobenzaprine 10 mg tablet 10 mg PO TID PRN muscle spasm #14 01/22/22 tabs acetaminophen 325 mg tablet 650 mg PO Q6H PRN pain #60 tabs 03/09/22 (Tylenol) clonidine 0.2 mg/24 hr weekly 1 patch transdermal QWEEK #4 ea 03/09/22 transdermal patch Allergies Allergy/AdvReac Type Severity Reaction Status Date / Time latex [LATEX] Allergy Unknown RASH Verified 03/31/22 13:31 naproxen [From NAPROSYN] Allergy Unknown TACHYCARDIA Verified 03/31/22 13:31 Review of Systems Review of Systems: All other systems are reviewed and are negative Constitutional: Reports as per HPI and Reports no additional constitutional complaints Eyes: Reports as per HPI and Reports no additional eye complaints Reports system reviewed and no additional complaints, except as documented Cardiovascular: Reports as per HPI and Reports no additional cardiovascular complaints Respiratory: Reports as per HPI and Reports no additional respiratory complaints Gastrointestinal: Reports as per HPI and Reports no additional gastrointestinal complaints Genitourinary: Reports no additional female genitourinary complaints Musculoskeletal: Reports no additional musculoskeletal complaints Skin/Breast: Reports system reviewed and no additional complaints, except as docu Psychiatric: Reports no additional psychiatric complaints Endocrine: Reports no additional endocrine complaints Hematologic/Lymphatic: Reports no additional hematologic/lymphatic complaints Allergic/Immunologic: Reports no additional allergic/immunologic complaints Reports system reviewed and no additional complaints, except as documented and Reports Abnormal speech present FOR[facility]LY [facility] Past Medical History Medical History Arthritis Asthma CAD (coronary artery disease) Cyst (solitary) of breast Diabetes H. pylori infection HLD (hyperlipidemia) HTN (hypertension) HTN (hypertension) Kidney calculi T2DM (type 2 diabetes mellitus) Vitamin D deficiency Surgical History History of breast surgery History of cardiac cath History of esophagogastroduodenoscopy (EGD) Hx of colonoscopy Family History Family History Mother Diabetes Liver cancer Social History Social History Household Members: Children and Friend(s) Housing: Apartment Do you presently have visiting nurse or other home services: No Alcohol intake: never Patient Tobacco Use Status: Current everyday Tobacco user Tobacco use type: Cigarette Cigarettes Per Day: 2 Years Smoked: 40 +/- e-Cigarette/Vaping Use: Never Used Second Hand Smoke Exposure: No Advance Directives: No Advance Directives Information Provided: No service: No Current occupational status: unemployed and disabled Physical Exam ED Vital Signs: Vital Signs - 24 hr 04/03/22 19:48 04/03/22 21:46 Temperature 98.3 F 98.7 F Pulse Rate 85 74 Respiratory Rate 15 18 Blood Pressure 174/75 H 183/66 H Pulse Oximetry 99 98 Oxygen Delivery Method Room Air Room Air BMI result Body Mass Index 25.6 Vital signs have been reviewed as appeared to be correct. Blood pressure normal. Heart rate normal. Respiration rate normal. Temperature normal. Oxygen saturation normal. Appearance: Alert. Oriented X3. No acute distress. Head: Normal external exam. Normocephalic. Atraumatic. No Benitez signs noted. No raccoon eyes noted Eyes: PERRLA. EOMI. Conjunctiva and sclera normal. Eyelids normal. ENT: TM's Normal. Pharynx normal. Uvula midline. Moist mucous membranes. No trismus noted. No drooling noted. No muffled voice noted. Neck: Normal inspection. Neck supple. FROM. No adenopathy. Thyroid Normal. No meningeal signs. No neck mass noted. CVS: Normal heart rate and rhythm. Heart sound normal. No murmurs noted. Pulses normal throughout. Respiratory: No respiratory distress. Painless inspiration. Breath sounds normal. No wheezes/rales/rhonchi noted. Chest nontender. No accessory muscle usage noted or decreased air movement noted. Abdomen: Soft, left upper quadrant tenderness, no rebound tenderness, no guarding.. Bowel sounds normal in all 4 quadrants. No distention noted. No organomegaly noted. No visible injury noted. Back: No CVA tenderness. Full range of motion noted. Skin: Skin warm and dry. Normal skin color. Normal skin turgor. No rashes/lesions/lacerations noted. Extremities: No lower extremity edema. Extremities exhibit normal range of motion. Extremities nontender. Neuro: Oriented X 3. Cranial nerve exam: II-XII are grossly intact No motor deficit. No sensory deficit. Reflexes normal. Course Course Course Narrative: 61-year-old female came in for evaluation of left-sided abdominal pain, left chest pain labs and workup unremarkable including EKG and chest x-ray, patient had CT of the abdomen revealed no acute pathology in the abdomen patient is feeling better after was given 1 mg of morphine, patient is stable to be discharged home. Medical Decision Making Differential Diagnosis Differential Diagnoses: The differential diagnosis associated with the presentation includes (ACS, pleural effusion, pneumothorax, colitis, kidney stone, pyelonephritis.) Lab Data MDM Lab Attestation statement: I reviewed the patient's lab results. 04/03/22 20:36 04/03/22 20:36 Labs: Lab Results 04/03/22 04/03/22 04/03/22 Range/Units 19:56 20:36 20:36 WBC 6.0 (4.8-10.8) X10*3/uL RBC 4.10 L (4.20-5.50) X10*6/uL Hgb 12.0 (12.0-16.0) g/dl Hct 35.6 L (37.0-47.0) % MCV 86.8 (80.0-98.0) fL MCH 29.3 (27.0-33.0) pg MCHC 33.7 (31.0-35.0) g/dl RDW 13.3 (11.0-16.0) % Plt Count 276 (160-400) X10*3/uL MPV 9.2 L (9.4-12.3) fL Immature Gran % (Auto) 0.2 (0.0-0.4) % Neut % (Auto) 58.2 (45-73) % Lymph % (Auto) 32.9 (20-40) % [place] % (Auto) 6.0 (2-11) % Eos % (Auto) 2.2 (0-4) % Baso % (Auto) 0.5 (0-2) % Lymph # (Auto) 2.0 (1.2-4.9) X10*3/uL [place] # (Auto) 0.4 (0.1-1.2) X10*3/uL Eos # (Auto) 0.1 (0.0-0.4) X10*3/uL Baso # (Auto) 0.0 (0.0-0.2) X10*3/uL Abs Immat Gran (auto) 0.01 (0.00-0.03) X10*3/uL Absolute Neuts (auto) 3.5 (2.0-8.3) x10*3/uL Absolute Nucleated RBC 0.000 (0.0-0.012) X10*3/uL Nucleated RBC % (auto) 0.0 (0.0-0.2) /100WBC Sodium 138 (135-145) mmol/L Potassium 3.9 (3.3-5.1) mmol/L Chloride 104 (96-108) mmol/L Carbon Dioxide 27 (22-29) mmol/L Anion Gap 11 L (12-20) BUN 11 (9-16) mg/dL Creatinine 0.74 (0.5-1.4) mg/dL Estim Creat Clear Calc 70.7 Estimated GFR > 60 POC Glucose 227 H (60-115) mg/dL Random Glucose 246 H (60-115) mg/dL Calcium 9.0 (8.4-10.2) mg/dL Total Bilirubin 0.6 (0.0-1.0) mg/dL Direct Bilirubin 0.2 (0.0-0.5) mg/dL AST 10 (5-31) U/L ALT 8 (0-31) U/L Alkaline Phosphatase 76 (39-117) U/L Troponin I High Sens (<3.5-17.0) ng/L Total Protein 5.8 L (6.5-8.0) g/dL Albumin 3.7 (3.5-5.0) g/dL Lipase 10 (8-78) U/L 04/03/22 Range/Units 20:36 WBC (4.8-10.8) X10*3/uL RBC (4.20-5.50) X10*6/uL Hgb (12.0-16.0) g/dl Hct (37.0-47.0) % MCV (80.0-98.0) fL MCH (27.0-33.0) pg MCHC (31.0-35.0) g/dl RDW (11.0-16.0) % Plt Count (160-400) X10*3/uL MPV (9.4-12.3) fL Immature Gran % (Auto) (0.0-0.4) % Neut % (Auto) (45-73) % Lymph % (Auto) (20-40) % [place] % (Auto) (2-11) % Eos % (Auto) (0-4) % Baso % (Auto) (0-2) % Lymph # (Auto) (1.2-4.9) X10*3/uL [place] # (Auto) (0.1-1.2) X10*3/uL Eos # (Auto) (0.0-0.4) X10*3/uL Baso # (Auto) (0.0-0.2) X10*3/uL Abs Immat Gran (auto) (0.00-0.03) X10*3/uL Absolute Neuts (auto) (2.0-8.3) x10*3/uL Absolute Nucleated RBC (0.0-0.012) X10*3/uL Nucleated RBC % (auto) (0.0-0.2) /100WBC Sodium (135-145) mmol/L Potassium (3.3-5.1) mmol/L Chloride (96-108) mmol/L Carbon Dioxide (22-29) mmol/L Anion Gap (12-20) BUN (9-16) mg/dL Creatinine (0.5-1.4) mg/dL Estim Creat Clear Calc Estimated GFR POC Glucose (60-115) mg/dL Random Glucose (60-115) mg/dL Calcium (8.4-10.2) mg/dL Total Bilirubin (0.0-1.0) mg/dL Direct Bilirubin (0.0-0.5) mg/dL AST (5-31) U/L ALT (0-31) U/L Alkaline Phosphatase (39-117) U/L Troponin I High Sens 6.0 (<3.5-17.0) ng/L Total Protein (6.5-8.0) g/dL Albumin (3.5-5.0) g/dL Lipase (8-78) U/L Independent Interpretation I performed an independent interpretation of an: EKG (Normal sinus rhythm at 77 beats per minute, LVH, T-wave inversion in V4, V5, V6, no change from previous EKG.), Plain X-Ray (Chest: No acute intrathoracic pathology.) and CT Scan (Abdomen: No acute intra-abdominal pathology.) Radiology Impression Discussion of test interpretation with radiology: I have reviewed the radiologist's reading. Discharge Plan Discharge Clinical Impression: LUQ abdominal pain, Non-cardiac chest pain Patient Disposition: Home, Self-Care Instructions: Abdominal Pain (ED) Prescriptions: No Action hydrochlorothiazide 25 mg tablet 25 mg PO DAILY Qty: 30 0RF Rx Instructions: Must call to schedule a cardiology appointment for more refills - overdue pioglitazone 15 mg tablet 15 mg PO DAILY 30 Days Qty: 30 11RF Trulicity 0.75 mg/0.5 mL pen injector 0.75 mg subcut QWEEK 30 Days Qty: 2.5 3RF (DME) lancets [TRUEplus Lancets] 33 gauge misc See Rx Instructions .Route Qty: 100 11RF Rx Instructions: 4x daily metformin 1,000 mg Tablet 1,000 mg PO BID ferrous sulfate 325 mg (65 mg iron) tablet 325 mg PO BID Qty: 60 0RF clopidogrel [Plavix] 75 mg tablet 75 mg PO DAILY Qty: 30 5RF polyethylene glycol 3350 [Miralax] 17 gram/dose powder 17 g PO DAILY Qty: 238 0RF Humalog Mix 50-50 Insuln U-100 100 unit/mL (50-50) suspension 6 unit subcut QAM Qty: 10 0RF cefuroxime axetil 250 mg tablet 250 mg PO BID 7 Days Qty: 14 0RF cyclobenzaprine 10 mg tablet 10 mg PO TID PRN (Reason: muscle spasm) Qty: 14 0RF clonidine 0.2 mg/24 hr patch weekly 1 patch transdermal QWEEK Qty: 4 0RF acetaminophen [Tylenol] 325 mg tablet 650 mg PO Q6H PRN (Reason: pain) Qty: 60 0RF amlodipine 10 mg Tablet 10 mg PO BEDTIME docusate sodium 100 mg Capsule 100 mg PO BID hydralazine 50 mg Tablet 50 mg PO TID pantoprazole [Protonix] 40 mg tablet,delayed release (DR/EC) 40 mg PO BID@0630,1630 lidocaine [Lidoderm] 5 % Adhesive Patch,Medicated 1 patch TOPICAL DAILY fluticasone propionate 50 mcg/actuation [place],Suspension 2 spray INTRANASAL DAILY acetaminophen [Arthritis Pain Relief (acetam)] 650 mg Tablet Extended Release 650 mg PO Q8H PRN (Reason: Pain (Scale Score 1-3)) Flovent HFA 110 mcg/actuation Hfa Aerosol Inhaler 2 puff INHALATION BID albuterol sulfate 2.5 mg /3 mL (0.083 %) Solution For Nebulization 2.5 mg inhalation Q4H PRN (Reason: shortness of breath/wheeze) Qty: 100 0RF tramadol 50 mg tablet 50 mg PO BID PRN (Reason: pain) Qty: 7 0RF amitriptyline 50 mg tablet 1 tab PO BEDTIME oxycodone-acetaminophen 7.5-325 mg tablet 1 tab PO Q6H PRN (Reason: severe pain) amoxicillin-pot clavulanate 875-125 mg tablet 1 tab PO BID Qty: 20 0RF hydralazine 50 mg tablet 50 mg PO TID Qty: 3 0RF cyclobenzaprine 10 mg tablet 10 mg PO TID Qty: 10 0RF carvedilol [Coreg] 25 mg tablet 25 mg PO BID Rx Instructions: must administer with a meal/food multivitamin Tablet 1 tab PO DAILY lisinopril 40 mg tablet 40 mg PO DAILY gabapentin 800 mg tablet 800 mg PO TID aspirin [Adult Low Dose Aspirin] 81 mg tablet,delayed release (DR/EC) 81 mg PO DAILY escitalopram oxalate [Lexapro] 20 mg tablet 20 mg PO DAILY mirtazapine 45 mg tablet 45 mg PO BEDTIME atorvastatin [Lipitor] 80 mg tablet 80 mg PO BEDTIME Tresiba FlexTouch U-100 100 unit/mL (3 mL) insulin pen 10 unit subcut DAILY (DME) FreeStyle Lite Strips Strip See Rx Instructions Not Applicable QID Qty: 10 Rx Instructions: As directed clotrimazole 1 % cream 1 appl topical BID Referrals: Radha Jamison DO [Primary Care Provider] - Eve Yeager MD [Physician] -
[2022-04-03 21:46] VITALS: BP 183/66; PULSE 74; RESP 18; TEMP 37.1; O2SAT 98
[2022-04-03] MEDS: Morphine Sulfate 2 MG/ML CARTRIDGE 1 MG IVPUSH (23:10)
== END 2022-04-03 23:38 | disposition home or self-care (01) ==
PROVIDERS: Emergency Provider Emergency Medicine; PCP Family Medicine
DX: R07.89 Other chest pain (principal); R10.12 Left upper quadrant pain; M25.512 Pain in left shoulder; E11.9 Type 2 diabetes mellitus without complications; I25.10 Atherosclerotic heart disease of native coronary artery without angina pectoris; F17.210 Nicotine dependence, cigarettes, uncomplicated; Z79.899 Other long term (current) drug therapy; Z79.4 Long term (current) use of insulin; Z71.6 Tobacco abuse counseling
CPT/HCPCS: 36415; 74176; 80048; 80076; 82947; 83690; 84484; 85025; 93005; 99284; J2270

== ENCOUNTER 2022-04-13 07:10 | Day surgery (SDC) | payer MEDICAID, SELFPAY ==
[2022-04-13] VITALS (11 sets, daily range): BP systolic 116–170; BP diastolic 42–69; PULSE 73–99; RESP 15–20; TEMP 36.1–36.7; O2SAT 98–100; BMI 25.9
[2022-04-13 07:31] LABS: Glucose, Whole Blood 197 mg/dL (60-115)
[2022-04-13 07:39] LABS: MANUAL DIFF FLAG NO
[2022-04-13 07:42] LABS: Basophils Percent Auto 0.5 % (0-2); Eosinophils Absolute Auto 0.2 X10*3/uL (0.0-0.4); Eosinophils Percent Auto 3.6 % (0-4); Hematocrit 36.6 % (37.0-47.0); Hemoglobin 12.1 g/dl (12.0-16.0); Imm Gran Abs Auto 0.01 X10*3/uL (0.00-0.03); Imm Gran Pct Auto 0.2 % (0.0-0.4); Lymphocytes Absolute Auto 2.2 X10*3/uL (1.2-4.9); Lymphocytes Percent Auto 33.7 % (20-40); Mean Corpuscular HGB Conc 33.1 g/dl (31.0-35.0); Mean Corpuscular Hemoglobin 29.4 pg (27.0-33.0); Mean Corpuscular Volume 88.8 fL (80.0-98.0); Monocytes Absolute Auto 0.4 X10*3/uL (0.1-1.2); Monocytes Percent Auto 6.5 % (2-11); Neutrophils Absolute Auto 3.7 x10*3/uL (2.0-8.3); Neutrophils Percent Auto 55.5 % (45-73); Platelet Count 291 X10*3/uL (160-400); Red Blood Count 4.12 X10*6/uL (4.20-5.50); Red Cell Distribution Width 13.6 % (11.0-16.0); White Blood Count 6.6 X10*3/uL (4.8-10.8)
[2022-04-13 07:58] LABS: Blood Urea Nitrogen 12 mg/dL (9-16); Creatinine Clr Calc Pharmacy 70.3; Estimated Glomerular Filt Rate > 60
[2022-04-13] MEDS: 0.9 % Sodium Chloride 1,000 ML 100 ML IVCONT (08:07)
[2022-04-13] MEDS: iohexoL 350 MG/ML 100 ML INFUS..BTL IV (11:23)
--- NOTE | 2022-04-13 11:29 | P.OP_ITS ---
Operative Note Operative Note Date of Service: 04/13/22 Narrative: Angiogram report from [facility] Preoperative diagnosis: Atherosclerosis of left lower extremity with activity limiting claudication Postoperative diagnosis: Same Procedure: 1. Ultrasound-guided right common femoral access 2. Aortogram with left lower extremity runoff Surgeon:Caleb Aragon M.D., FACS, RPVI Compacting Machine Operator/Tender:None Anesthesia: Local with moderate conscious sedation. Total intraservice moder ate sedation time was 30 minutes. I monitored the patient's level of consciousness and physiologic status continuously throughout the procedure. Specimens:none Drains:none Estimated blood loss: Less than 10 ml Implant: None Indications: Very pleasant 61-year-old female with a known history of left lower extremity fem to above knee popliteal bypass on surveillance ultrasound was noted to have high-grade stenosis. She now presents for potential endovascular intervention. The patient has signed the informed consent after reviewing risks, complications, benefits, and alternatives previously discussed with the patient. The patient was given the opportunity to ask any additional questions or voice any concerns. All questions were answered to the patient's satisfaction. Procedure in detail: Patient was brought to the angiography suite prior to which a time-out was called for patient identification and site verification. Bilateral groins were prepped and draped in the standard surgical fashion. Under ultrasound guidance right common femoral was punctured with micro puncture needle and wire. Subsequently a precision 4 [place] sheath was then placed. Bentson wire was advanced to the level of the aorta. 4 [place] Flush catheter was brought up and parked at the level of the renal arteries. Aortogram was then undertaken. Catheter was brought down to the level of the iliac bifurcation. Iliacs were subsequently imaged. Catheter was then brought in up and over to the left side SFA. Runoff study was then undertaken. Graft was imaged in multiple orthogonal views were undertaken. No stenosis noted. Catheter wire sheath was removed. 10 minutes of direct pressure was held. Interpretation of films: 1. Ultrasound demonstrates appropriate femoral puncture. Image of which was saved. 2. Aortogram demonstrates appropriate caliber aorta. Minimal disease. Appropriate take-off of the renals. 3. Iliac images demonstrate no significant disease 4. Left Leg Common femoral artery: No significant disease with appropriate attachment of graft no stenosis noted Profundus Femoris: No significant disease Superficial femoral artery: Good flow through the graft [place] SFA occluded Popliteal artery (p1,p2,p3): Graft attached to the P1 segment with no stenosis noted on multiple orthogonal views. Rest of popliteal was patent Anterior tibial artery: Patent dominant runoff Peroneal artery: Patent Posterior tibial artery: Diminutive but present Dorsalis pedis/plantar arch: Incomplete Conclusion: 1. Successful diagnostic angiogram with no evidence of graft stenosis 2. Anticoagulation status: No change This note is constructed using voice recognition software. While every effort has been made to ensure accuracy, can inspector errors may have been included. Thank you for allowing me to participate in the care of your patient. Yours sincerely, Caleb Aragon MD, FACS, R.P.V.I.
[2022-04-13] MEDS: ondansetron HCL 4 MG/2 ML VIAL IVPUSH (13:30)
[2022-04-13] MEDS: Acetaminophen 325 MG TABLET 650 MG PO (15:15)
== END 2022-04-13 15:40 | disposition home or self-care (01) ==
PROVIDERS: PCP Family Medicine; Visit Provider Surgery Vascular Surgery
DX: E11.51 Type 2 diabetes mellitus with diabetic peripheral angiopathy without gangrene (principal); I70.212 Atherosclerosis of native arteries of extremities with intermittent claudication, left leg; Z95.820 Peripheral vascular angioplasty status with implants and grafts; I10 Essential (primary) hypertension; I25.10 Atherosclerotic heart disease of native coronary artery without angina pectoris; J45.909 Unspecified asthma, uncomplicated; Z88.8 Allergy status to other drugs, medicaments and biological substances; Z79.4 Long term (current) use of insulin; Z91.040 Latex allergy status; E78.5 Hyperlipidemia, unspecified; E55.9 Vitamin D deficiency, unspecified; F17.210 Nicotine dependence, cigarettes, uncomplicated
CPT/HCPCS: 36246; 36415; 75630; 76937; 82565; 82947; 84520; 85025; 99152; 99153; C1769; C1887; J1643; J2250; J2405; J3010; Q9967

== ENCOUNTER 2022-04-17 07:27 | Emergency (ER) | payer MEDICAID, SELFPAY ==
--- NOTE | ~2022-04-17 | CT_ITS ---
EXAMINATION: CT ABDOMEN AND PELVIS WITH CONTRAST CLINICAL INFORMATION: 61-year-old female with left lower quadrant abdominal pain COMPARISON: CT abdomen pelvis April 03, 2022 TECHNIQUE: Multidetector volumetric images were obtained from the superior aspect of the liver through the pubic symphysis following administration 85 mL of Omnipaque 350 intravenous contrast. Sagittal and coronal reformatted images were obtained on the technologist's workstation. This CT examination was performed using dose optimization techniques as appropriate, variously including the following: *Automated exposure control *Adjustment of mA and/or kV according to patient size (this includes techniques or standardized protocols for targeted exams where dose is matched to indication/reason for exam; i.e. extremities or head) *Use of iterative reconstruction technique DLP: 439 mGy-cm FINDINGS: Visualized lung bases demonstrate mild dependent atelectasis. There is a 5 mm calcified granuloma of the left lung base. The liver demonstrates normal size, contour and attenuation. The gallbladder is normal in appearance. The pancreas is normal in size. A few small calcified granulomas are noted within the spleen. The adrenal glands are unremarkable. Symmetrically enhancing kidneys. A few sub-5 mm hypodense foci within the kidneys are too small to accurately characterize but statistically cysts. Moderate sized hiatal hernia. Normal caliber loops of small bowel. Moderate colonic stool burden. Normal appendix. Normal caliber abdominal aorta demonstrating moderate to severe atherosclerotic disease. The bladder is normal in appearance. Heterogeneous appearance of the uterus with possible endometrial thickening. There is no gross free pelvic fluid. No inguinal lymphadenopathy. Mild degenerative changes of the spine. CT/CT abdomen pelvis w IV con IMPRESSION: 1. Moderate colonic stool burden suggesting constipation. 2. Heterogeneous appearance of the uterus with possible endometrial thickening. Further evaluation can be obtained with dedicated pelvic ultrasound as recommended. 3. Moderate sized hiatal hernia. 4. Evidence of prior granulomatous disease. Fleischner guidelines were followed.
[2022-04-17 07:38] VITALS: BP 152/90; BP 166/77; PULSE 94; PULSE 99; RESP 18; TEMP 36.6; O2SAT 98; O2SAT 99; BMI 25.6
[2022-04-17 08:25] LABS: MANUAL DIFF FLAG NO
[2022-04-17 08:28] LABS: Basophils Percent Auto 0.7 % (0-2); Eosinophils Absolute Auto 0.3 X10*3/uL (0.0-0.4); Eosinophils Percent Auto 4.4 % (0-4); Hematocrit 35.9 % (37.0-47.0); Hemoglobin 11.7 g/dl (12.0-16.0); Imm Gran Abs Auto 0.02 X10*3/uL (0.00-0.03); Imm Gran Pct Auto 0.4 % (0.0-0.4); Lymphocytes Absolute Auto 1.6 X10*3/uL (1.2-4.9); Lymphocytes Percent Auto 27.3 % (20-40); Mean Corpuscular HGB Conc 32.6 g/dl (31.0-35.0); Mean Corpuscular Hemoglobin 29.2 pg (27.0-33.0); Mean Corpuscular Volume 89.5 fL (80.0-98.0); Mean Platelet Volume 9.3 fL (9.4-12.3); Monocytes Absolute Auto 0.4 X10*3/uL (0.1-1.2); Monocytes Percent Auto 6.3 % (2-11); Neutrophils Absolute Auto 3.5 x10*3/uL (2.0-8.3); Neutrophils Percent Auto 60.9 % (45-73); Platelet Count 309 X10*3/uL (160-400); Red Blood Count 4.01 X10*6/uL (4.20-5.50); Red Cell Distribution Width 13.4 % (11.0-16.0); White Blood Count 5.7 X10*3/uL (4.8-10.8)
[2022-04-17 08:50] LABS: Anion Gap 13 (12-20)
[2022-04-17 08:52] LABS: Alanine Aminotransferase 7 U/L (0-31); Albumin Level 3.8 g/dL (3.5-5.0); Alkaline Phosphatase 71 U/L (39-117); Aspartate Amino Transferase 10 U/L (5-31); Bilirubin Direct < 0.2 mg/dL (0.0-0.5); Bilirubin Total 0.7 mg/dL (0.0-1.0); Blood Urea Nitrogen 17 mg/dL (9-16); C Reactive Protein 0.23 mg/dL (< or = 0.50); Calcium 9.1 mg/dL (8.4-10.2); Carbon Dioxide 26 mmol/L (22-29); Chloride 104 mmol/L (96-108); Creatinine Clr Calc Pharmacy 66.3; Estimated Glomerular Filt Rate > 60; Glucose Random 272 mg/dL (60-115); Lipase 10 U/L (8-78); Magnesium 1.6 mg/dL (1.6-2.6); Potassium 4.9 mmol/L (3.3-5.1); Sodium 138 mmol/L (135-145); Total Protein 6.2 g/dL (6.5-8.0)
[2022-04-17] MEDS: iohexoL 350 MG/ML 100 ML INFUS..BTL IV (09:14)
[2022-04-17 09:26] LABS: Erythrocyte Sedimentation Rate 23 MM/HR (0-20)
[2022-04-17] MEDS: ondansetron HCL 4 MG/2 ML VIAL IVPUSH (09:31)
[2022-04-17] MEDS: Morphine Sulfate 4 MG/ML CARTRIDGE IVPUSH (09:31)
[2022-04-17] MEDS: 0.9 % Sodium Chloride 1,000 ML 999 ML IVCONT (09:32)
--- NOTE | 2022-04-17 10:34 | ED_ITS ---
HPI - Abdominal Pain General Chief Complaint: Abdominal Pain Stated Complaint: L abd pain since yesterday per EMS Time Seen by Provider: 04/17/22 08:33 Source: patient Mode of arrival: ambulatory Limitations: language barrier (Surinamese-speaking) History of Present Illness HPI narrative: 61yoF with a PMHx of arthritis, asthma, CAD, solitary cyst of breast, diabetes, H pylori infection, hyperlipidemia, hypertension, kidney stones, vitamin-D deficiency, peripheral vascular disease who is status post angiogram with no evidence of graft stenosis performed on 04/13/[address] Aragon who is presenting to the ER with complaints of left upper quadrant abdominal pain that has been on and off for the past few months although worse since yesterday. She reports it is a stabbing sensation. She had some associated nausea. Otherwise she reports she had a bowel movement today. She denies any fevers, chills, dizziness, headaches, neck pain/stiffness, trouble swallowing or breathing, sore throat, nasal congestion rhinorrhea, chest pain or shortness of breath, dyspnea on exertion, orthopnea, palpitations, paresthesias, radiation of the abdominal pain, back pain, flank pain, dysuria, hematuria, abnormal vaginal discharge, lower extremity edema or calf tenderness, recent falls or trauma, rashes, sick contacts, black or bloody stools or any other symptoms complaints or concerns at this time. MD elicited complaint: abdominal pain Pertinent past history: other (See above) Onset (ago): month(s) (For months worse today) Pain Consistency: intermittent Location: LUQ Severity: mild Quality: sharp Radiation: none Migration to: no migration Exacerbating factors: nothing Relieving factors: nothing Associated symptoms: nausea Related Data Home Medications Medication Instructions Recorded Confirmed metformin 1,000 mg tablet 1,000 mg PO BID 12/22/19 05/07/21 aspirin 81 mg tablet,delayed 81 mg PO DAILY 01/02/20 05/07/21 release (Adult Low Dose Aspirin) atorvastatin 80 mg tablet (Lipitor) 80 mg PO BEDTIME 01/02/20 05/07/21 carvedilol 25 mg tablet (Coreg) 25 mg PO BID 01/02/20 05/07/21 escitalopram oxalate 20 mg tablet 20 mg PO DAILY 01/02/20 05/07/21 (Lexapro) gabapentin 800 mg tablet 800 mg PO TID 01/02/20 05/07/21 insulin degludec 100 unit/mL (3 10 unit subcut DAILY 01/02/20 05/07/21 mL) subcutaneous pen (Tresiba FlexTouch U-100 insulin) lisinopril 40 mg tablet 40 mg PO DAILY 01/02/20 05/07/21 mirtazapine 45 mg tablet 45 mg PO BEDTIME 01/02/20 05/07/21 multivitamin 1 tab PO DAILY 01/02/20 05/07/21 acetaminophen 650 mg 650 mg PO Q8H PRN Pain (Scale 01/16/21 05/07/21 tablet,extended release (Arthritis Score 1-3) Pain Relief (acetaminophen) ER) amlodipine 10 mg tablet 10 mg PO BEDTIME 01/16/21 05/07/21 docusate sodium 100 mg capsule 100 mg PO BID 01/16/21 05/07/21 fluticasone propionate 110 2 puff inhalation BID 01/16/21 05/07/21 mcg/actuation HFA aerosol inhaler (Flovent HFA) fluticasone propionate 50 2 spray intranasal DAILY 01/16/21 05/07/21 mcg/actuation nasal spray,suspension hydralazine 50 mg tablet 50 mg PO TID 01/16/21 05/07/21 lidocaine 5 % topical patch 1 patch topical DAILY 01/16/21 05/07/21 (Lidoderm) pantoprazole 40 mg tablet,delayed 40 mg PO BID@0630,1630 01/16/21 05/07/21 release (Protonix) blood sugar diagnostic (FreeStyle #10 ea 03/30/21 Lite Strips) clotrimazole 1 % topical cream 1 appl topical BID 03/30/21 05/07/21 amitriptyline 50 mg tablet 1 tab PO BEDTIME 05/07/21 05/07/21 oxycodone-acetaminophen 7.5 mg-325 1 tab PO Q6H PRN severe pain 05/07/21 05/07/21 mg tablet Previous Rx's Medication Instructions Recorded ferrous sulfate 325 mg (65 mg 325 mg PO BID #60 tabs 05/24/20 iron) tablet hydrochlorothiazide 25 mg tablet 25 mg PO DAILY #30 tabs 08/13/20 clopidogrel 75 mg tablet (Plavix) 75 mg PO DAILY #30 tabs 12/02/20 pioglitazone 15 mg tablet 15 mg PO DAILY 30 days #30 tabs 12/02/20 albuterol sulfate 2.5 mg/3 mL 2.5 mg (3 mL) inhalation Q4H PRN 01/19/21 (0.083 %) solution for nebulization shortness of breath/wheeze #100 mL tramadol 50 mg tablet 50 mg PO BID PRN pain #7 tabs 05/06/21 amoxicillin 875 mg-potassium 1 tab PO BID #20 tabs 05/09/21 clavulanate 125 mg tablet polyethylene glycol 3350 17 17 g PO DAILY #238 grams 07/12/21 gram/dose oral powder (Miralax) dulaglutide 0.75 mg/0.5 mL 0.75 mg (0.5 mL) subcut QWEEK 30 07/14/21 subcutaneous pen injector days #2.5 mL (Trulicity) lancets 33 gauge (TRUEplus Lancets) #100 ea 07/26/21 hydralazine 50 mg tablet 50 mg PO TID #3 tabs 09/21/21 cyclobenzaprine 10 mg tablet 10 mg PO TID #10 tabs 10/05/21 insulin lispro protamine-lispro 6 unit (0.06 mL) subcut QAM #10 mL 12/25/21 100 unit/mL (50-50) subcutaneous susp (Humalog Mix 50-50 Insuln U-100) cefuroxime axetil 250 mg tablet 250 mg PO BID 7 days #14 tabs 01/22/22 cyclobenzaprine 10 mg tablet 10 mg PO TID PRN muscle spasm #14 01/22/22 tabs acetaminophen 325 mg tablet 650 mg PO Q6H PRN pain #60 tabs 03/09/22 (Tylenol) clonidine 0.2 mg/24 hr weekly 1 patch transdermal QWEEK #4 ea 03/09/22 transdermal patch cyclobenzaprine 10 mg tablet 10 mg PO Q8H #14 tabs 04/17/22 docusate sodium 100 mg capsule 100 mg PO BID PRN Constipation #14 04/17/22 (Colace) caps polyethylene glycol 3350 17 17 g PO DAILY #238 grams 04/17/22 gram/dose oral powder (Miralax) Allergies Allergy/AdvReac Type Severity Reaction Status Date / Time latex [LATEX] Allergy Unknown RASH Verified 04/17/22 07:44 naproxen [From NAPROSYN] Allergy Unknown TACHYCARDIA Verified 04/17/22 07:44 Review of Systems Review of Systems Constitutional : No Fever, No Chills, No Night Sweats, No Fatigue, No Malaise Cardiovascular : No Chest Pain, No SOB Respiratory : No Cough, No Sputum, No Wheezing, No Dyspnea Gastrointestinal : + Nausea, No Vomiting, No Diarrhea, + abdominal Pain, No Hematochezia, No Melena Genitourinary : No irregular bleeding, No Dysuria, No Urinary Frequency, No Hematuria,No Urinary Incontinence, No Urgency, No Flank Pain Musculoskeletal : No joint pain, No Myalgias, No Joint Swelling Skin : No Skin Lesions, No rash Neuro : No Weakness, No Numbness, No Paresthesias, No Loss of Consciousness, No Dizziness, No Headache Heme/Lymph: No Lymphadenopathy Endocrine : No Temperature Intolerance Yes all other systems are reviewed and are negative PMFSH Past Medical History Attestation statement: The following information was validated with the patient. Source: old records reviewed and nursing notes reviewed Medical History Arthritis Asthma CAD (coronary artery disease) Cyst (solitary) of breast Diabetes H. pylori infection HLD (hyperlipidemia) HTN (hypertension) HTN (hypertension) Kidney calculi T2DM (type 2 diabetes mellitus) Vitamin D deficiency Surgical History History of breast surgery History of cardiac cath History of esophagogastroduodenoscopy (EGD) Hx of colonoscopy Family History Family History Mother Diabetes Liver cancer Social History Social History Household Members: Children and Friend(s) Housing: Apartment Do you presently have visiting nurse or other home services: No Alcohol intake: never Patient Tobacco Use Status: Current everyday Tobacco user Tobacco use type: Cigarette Cigarettes Per Day: 2 Years Smoked: 40 +/- e-Cigarette/Vaping Use: Never Used Second Hand Smoke Exposure: No Advance Directives: No Advance Directives Information Provided: No service: No Current occupational status: unemployed and disabled Physical Exam ED Vital Signs: Vital Signs - 24 hr 04/17/22 07:38 04/17/22 10:55 04/17/22 10:57 Temperature 98 F Pulse Rate 99 73 Respiratory Rate 18 Blood Pressure 166/77 H 174/78 H Pulse Oximetry 98 99 Oxygen Delivery Method Room Air Room Air BMI result Body Mass Index 25.6 Vital signs have been reviewed and all within normal limits Appearance: Alert. Oriented X3. No acute distress. Head: Normal external exam. Normocephalic. Eyes: PERRLA. EOMI. Conjunctiva and sclera normal. Eyelids normal. ENT: Pharynx normal. Uvula midline. Moist mucous membranes. No trismus noted. No drooling noted. No muffled voice noted. Neck: Normal inspection. Neck supple. FROM. No adenopathy. No meningeal signs. CVS: Normal heart rate and rhythm. Heart sound normal. No murmurs noted. Pulses normal throughout. Respiratory: No respiratory distress. Painless inspiration. Breath sounds normal. No wheezes/rales/rhonchi noted. Chest nontender. No accessory muscle usage noted or decreased air movement noted. Abdomen: Soft and mild tenderness palpation to left upper quadrant. Nondistended. No guarding. No rigidity. Bowel sounds normal in all 4 quadrants. No distention noted. No organomegaly noted. No visible injury noted. No rebound tenderness. Negative Rovsing sign. Negative obturator's sign. Negative psoas sign. Negative Benitez sign. Back: No CVA tenderness. Full range of motion noted. Skin: Skin warm and dry. Normal skin color. Normal skin turgor. No rashes/lesions/lacerations noted. The site where she had the angiogram appears within normal limits no evidence of infection surrounding erythema/purulent drainage or tenderness noted. Extremities: Extremities exhibit normal range of motion. Extremities nontender. No lower extremity edema or calf tenderness noted. Neuro: Oriented X 3. No motor deficit. No sensory deficit. Reflexes normal. Normal steady gait. CN's II-XII intact bilaterally? Course Course Course Narrative: 61yoF with a PMHx of arthritis, asthma, CAD, solitary cyst of breast, diabetes, H pylori infection, hyperlipidemia, hypertension, kidney stones, vitamin-D deficiency, peripheral vascular disease who is status post angiogram with no evidence of graft stenosis performed on 04/13/[address] Aragon who is presenting to the ER with complaints of left upper quadrant abdominal pain that has been on and off for the past few months although worse since yesterday. She reports it is a stabbing sensation. She had some associated nausea. Otherwise she reports she had a bowel movement today. Presentation consistent with left upper quadrant abdominal pain. Differential diagnosis included pancreatitis. Abdominal exam without peritoneal signs. No evidence of acute abdomen at this time. Well appearing. Low suspicion for acute hepatobiliary disease (includng acute cholecystitis), PUD (including perforation), acute infectious processes (pneumonia, hepatitis, pyelonephritis), atypical appendicitis, vascular catastrophe, bowel obstruction or viscus perforation. Presentation not consistent with other acute, emergent causes of abdominal pain at this time. Labs reviewed Labs obtained patient mild anemia with an H&H of 11.7/35.9. ESR 23. BUN 17. Random glucose 272. Total protein 6.2. Otherwise all other labs are within normal limits. Imaging CT scan abdomen pelvis with IV contrast revealed constipation, possible endometrial thickening, hiatal hernia and prior granulomatous disease otherwise no other acute processes. Therefore explained to the patient she should give me a UA to evaluate for possible UTI. Although patient with constipation most likely abdominal strain will DC home with Colace, MiraLax and muscle relaxants instructions return if any new or worsening symptoms to follow up with primary care provider. I will call her with her UA results if she has UTI although patient does not have any suprapubic abdominal tenderness or lower abdominal tenderness or any urinary symptoms at this time. Patient understands agrees with this plan. Medical Decision Making Differential Diagnosis Differential Diagnoses: The differential diagnosis associated with the presentation includes (see course note for MDM) Lab Data [facility] Lab Attestation statement: I reviewed the patient's lab results. 04/17/22 08:21 04/17/22 08:21 Labs: Lab Results 04/17/22 04/17/22 04/17/22 Range/Units 08:21 08:21 08:21 WBC 5.7 (4.8-10.8) X10*3/uL RBC 4.01 L (4.20-5.50) X10*6/uL Hgb 11.7 L (12.0-16.0) g/dl Hct 35.9 L (37.0-47.0) % MCV 89.5 (80.0-98.0) fL MCH 29.2 (27.0-33.0) pg MCHC 32.6 (31.0-35.0) g/dl RDW 13.4 (11.0-16.0) % Plt Count 309 (160-400) X10*3/uL MPV 9.3 L (9.4-12.3) fL Immature Gran % (Auto) 0.4 (0.0-0.4) % Neut % (Auto) 60.9 (45-73) % Lymph % (Auto) 27.3 (20-40) % [place] % (Auto) 6.3 (2-11) % Eos % (Auto) 4.4 H (0-4) % Baso % (Auto) 0.7 (0-2) % Lymph # (Auto) 1.6 (1.2-4.9) X10*3/uL [place] # (Auto) 0.4 (0.1-1.2) X10*3/uL Eos # (Auto) 0.3 (0.0-0.4) X10*3/uL Baso # (Auto) 0.0 (0.0-0.2) X10*3/uL Abs Immat Gran (auto) 0.02 (0.00-0.03) X10*3/uL Absolute Neuts (auto) 3.5 (2.0-8.3) x10*3/uL Absolute Nucleated RBC 0.000 (0.0-0.012) X10*3/uL Nucleated RBC % (auto) 0.0 (0.0-0.2) /100WBC ESR 23 H (0-20) MM/HR Sodium 138 (135-145) mmol/L Potassium 4.9 D (3.3-5.1) mmol/L Chloride 104 (96-108) mmol/L Carbon Dioxide 26 (22-29) mmol/L Anion Gap 13 (12-20) BUN 17 H (9-16) mg/dL Creatinine 0.79 (0.5-1.4) mg/dL Estim Creat Clear Calc 66.3 Estimated GFR > 60 Random Glucose 272 H (60-115) mg/dL Calcium 9.1 (8.4-10.2) mg/dL Magnesium 1.6 (1.6-2.6) mg/dL Total Bilirubin 0.7 (0.0-1.0) mg/dL Direct Bilirubin < 0.2 (0.0-0.5) mg/dL AST 10 (5-31) U/L ALT 7 (0-31) U/L Alkaline Phosphatase 71 (39-117) U/L C-Reactive Protein 0.23 (< or = 0.50) mg/dL Total Protein 6.2 L (6.5-8.0) g/dL Albumin 3.8 (3.5-5.0) g/dL Lipase 10 (8-78) U/L Urine Color Urine Appearance Urine pH (5.0-9.0) Ur Specific [place] (1.005-1.025) Urine Protein (Neg-Trace) mg/dL Urine Glucose (UA) (Negative) mg/dL Urine Ketones (Negative) mg/dL Urine Blood (Negative) Urine Nitrite (Negative) Ur Leukocyte Esterase (Negative) Urine RBC (0-2) /HPF Urine WBC (0-5) /HPF Ur Squamous Epith Cells (0-2) /HPF Urine Bacteria (None Seen) Hyaline Casts (0-2) /LPF 04/17/22 Range/Units 10:53 WBC (4.8-10.8) X10*3/uL RBC (4.20-5.50) X10*6/uL Hgb (12.0-16.0) g/dl Hct (37.0-47.0) % MCV (80.0-98.0) fL MCH (27.0-33.0) pg MCHC (31.0-35.0) g/dl RDW (11.0-16.0) % Plt Count (160-400) X10*3/uL MPV (9.4-12.3) fL Immature Gran % (Auto) (0.0-0.4) % Neut % (Auto) (45-73) % Lymph % (Auto) (20-40) % [place] % (Auto) (2-11) % Eos % (Auto) (0-4) % Baso % (Auto) (0-2) % Lymph # (Auto) (1.2-4.9) X10*3/uL [place] # (Auto) (0.1-1.2) X10*3/uL Eos # (Auto) (0.0-0.4) X10*3/uL Baso # (Auto) (0.0-0.2) X10*3/uL Abs Immat Gran (auto) (0.00-0.03) X10*3/uL Absolute Neuts (auto) (2.0-8.3) x10*3/uL Absolute Nucleated RBC (0.0-0.012) X10*3/uL Nucleated RBC % (auto) (0.0-0.2) /100WBC ESR (0-20) MM/HR Sodium (135-145) mmol/L Potassium (3.3-5.1) mmol/L Chloride (96-108) mmol/L Carbon Dioxide (22-29) mmol/L Anion Gap (12-20) BUN (9-16) mg/dL Creatinine (0.5-1.4) mg/dL Estim Creat Clear Calc Estimated GFR Random Glucose (60-115) mg/dL Calcium (8.4-10.2) mg/dL Magnesium (1.6-2.6) mg/dL Total Bilirubin (0.0-1.0) mg/dL Direct Bilirubin (0.0-0.5) mg/dL AST (5-31) U/L ALT (0-31) U/L Alkaline Phosphatase (39-117) U/L C-Reactive Protein (< or = 0.50) mg/dL Total Protein (6.5-8.0) g/dL Albumin (3.5-5.0) g/dL Lipase (8-78) U/L Urine Color Yellow Urine Appearance Clear Urine pH 7.5 (5.0-9.0) Ur Specific [place] >= 1.030 H (1.005-1.025) Urine Protein 100 (2+) H (Neg-Trace) mg/dL Urine Glucose (UA) 100 H (Negative) mg/dL Urine Ketones Negative (Negative) mg/dL Urine Blood Negative (Negative) Urine Nitrite Negative (Negative) Ur Leukocyte Esterase Negative (Negative) Urine RBC 3-5 H (0-2) /HPF Urine WBC 0-5 (0-5) /HPF Ur Squamous Epith Cells 3-5 (0-2) /HPF Urine Bacteria None Seen (None Seen) Hyaline Casts 0-2 (0-2) /LPF Independent Interpretation I performed an independent interpretation of an: CT Scan (I reviewed the CT scan myself and agreeable with radiologist reading patient understand results) Radiology Impression Discussion of test interpretation with radiology: I have reviewed the radiologist's reading. Radiologist Impression: FINDINGS: Visualized lung bases demonstrate mild dependent atelectasis. There is a 5 mm calcified granuloma of the left lung base. The liver demonstrates normal size, contour and attenuation. The gallbladder is normal in appearance. The pancreas is normal in size. A few small calcified granulomas are noted within the spleen. The adrenal glands are unremarkable. Symmetrically enhancing kidneys. A few sub-5 mm hypodense foci within the kidneys are too small to accurately characterize but statistically cysts. Moderate sized hiatal hernia. Normal caliber loops of small bowel. Moderate colonic stool burden. Normal appendix. Normal caliber abdominal aorta demonstrating moderate to severe atherosclerotic disease. The bladder is normal in appearance. Heterogeneous appearance of the uterus with possible endometrial thickening. There is no gross free pelvic fluid. No inguinal lymphadenopathy. Mild degenerative changes of the spine. CT/CT abdomen pelvis w IV con IMPRESSION: 1.? Moderate colonic stool burden suggesting constipation. 2.? Heterogeneous appearance of the uterus with possible endometrial thickening. Further evaluation can be obtained with dedicated pelvic ultrasound as recommended. 3.? Moderate sized hiatal hernia. 4.? Evidence of prior granulomatous disease. ? Fleischner guidelines were followed. Independent Historian Clinical information obtained from an independent historian. History obtained from or confirmed by: Other External Record Review External record reviewed: Inpatient record, Office record, Outpatient record, Prior outpatient labs, Prior outpatient radiology, Primary care record and Outside ED record I reviewed all the patient's imaging, labs inpatient, outpatient records Prescription Management I considered prescription management with: Pain Medication (Patient was given medication while she was here) Will DC home with muscle relaxer, Colace and MiraLax Chronic Conditions Patient?s care impacted by: Diabetes, Hypertension and Other (see HPI) Medications Administered Discontinued Medications Generic Name Dose Route Start Last Admin Trade Name Freq PRN Reason Stop Dose Admin Cyclobenzaprine HCl 10 mg 04/17/22 10:44 04/17/22 10:57 Cyclobenzaprine Hcl 10 Mg Tablet PO 04/17/22 10:45 10 mg ONCE ONE Administration Sodium Chloride 1,000 mls @ 999 mls/hr 04/17/22 09:00 04/17/22 10:46 Ns IVCONT 04/17/22 10:00 Infused .Q1H1M JORY Infusion Iohexol 100 ml 04/17/22 09:14 04/17/22 09:14 Iohexol 350 Mg/Ml 100 Ml Infus..Btl IV 04/17/22 09:15 85 ml ONCE ONE Administration Morphine Sulfate 4 mg 04/17/22 08:47 04/17/22 09:31 Morphine Sulfate 4 Mg/Ml Cartridge IVPUSH 04/17/22 08:48 4 mg ONCE ONE Administration Protocol Ondansetron HCl 4 mg 04/17/22 08:47 04/17/22 09:31 Ondansetron Hcl 4 Mg/2 Ml Vial IVPUSH 04/17/22 08:48 4 mg ONCE ONE Administration Discharge Plan Discharge Clinical Impression: Constipation, Abdominal pain Patient Disposition: Home, Self-Care Instructions: Constipation (ED), Abdominal Pain (ED) Prescriptions: New cyclobenzaprine 10 mg tablet 10 mg PO Q8H Qty: 14 0RF docusate sodium [Colace] 100 mg capsule 100 mg PO BID PRN (Reason: Constipation) Qty: 14 0RF polyethylene glycol 3350 [Miralax] 17 gram/dose powder 17 g PO DAILY Qty: 238 0RF No Action hydrochlorothiazide 25 mg tablet 25 mg PO DAILY Qty: 30 0RF Rx Instructions: Must call to schedule a cardiology appointment for more refills - overdue pioglitazone 15 mg tablet 15 mg PO DAILY 30 Days Qty: 30 11RF Trulicity 0.75 mg/0.5 mL pen injector 0.75 mg subcut QWEEK 30 Days Qty: 2.5 3RF (DME) lancets [TRUEplus Lancets] 33 gauge misc See Rx Instructions .Route Qty: 100 11RF Rx Instructions: 4x daily metformin 1,000 mg Tablet 1,000 mg PO BID ferrous sulfate 325 mg (65 mg iron) tablet 325 mg PO BID Qty: 60 0RF clopidogrel [Plavix] 75 mg tablet 75 mg PO DAILY Qty: 30 5RF polyethylene glycol 3350 [Miralax] 17 gram/dose powder 17 g PO DAILY Qty: 238 0RF Humalog Mix 50-50 Insuln U-100 100 unit/mL (50-50) suspension 6 unit subcut QAM Qty: 10 0RF cefuroxime axetil 250 mg tablet 250 mg PO BID 7 Days Qty: 14 0RF cyclobenzaprine 10 mg tablet 10 mg PO TID PRN (Reason: muscle spasm) Qty: 14 0RF clonidine 0.2 mg/24 hr patch weekly 1 patch transdermal QWEEK Qty: 4 0RF acetaminophen [Tylenol] 325 mg tablet 650 mg PO Q6H PRN (Reason: pain) Qty: 60 0RF amlodipine 10 mg Tablet 10 mg PO BEDTIME docusate sodium 100 mg Capsule 100 mg PO BID hydralazine 50 mg Tablet 50 mg PO TID pantoprazole [Protonix] 40 mg tablet,delayed release (DR/EC) 40 mg PO BID@0630,1630 lidocaine [Lidoderm] 5 % Adhesive Patch,Medicated 1 patch TOPICAL DAILY fluticasone propionate 50 mcg/actuation Zap,Suspension 2 spray INTRANASAL DAILY acetaminophen [Arthritis Pain Relief (acetam)] 650 mg Tablet Extended Release 650 mg PO Q8H PRN (Reason: Pain (Scale Score 1-3)) Flovent HFA 110 mcg/actuation Hfa Aerosol Inhaler 2 puff INHALATION BID albuterol sulfate 2.5 mg /3 mL (0.083 %) Solution For Nebulization 2.5 mg inhalation Q4H PRN (Reason: shortness of breath/wheeze) Qty: 100 0RF tramadol 50 mg tablet 50 mg PO BID PRN (Reason: pain) Qty: 7 0RF amitriptyline 50 mg tablet 1 tab PO BEDTIME oxycodone-acetaminophen 7.5-325 mg tablet 1 tab PO Q6H PRN (Reason: severe pain) amoxicillin-pot clavulanate 875-125 mg tablet 1 tab PO BID Qty: 20 0RF hydralazine 50 mg tablet 50 mg PO TID Qty: 3 0RF cyclobenzaprine 10 mg tablet 10 mg PO TID Qty: 10 0RF carvedilol [Coreg] 25 mg tablet 25 mg PO BID Rx Instructions: must administer with a meal/food multivitamin Tablet 1 tab PO DAILY lisinopril 40 mg tablet 40 mg PO DAILY gabapentin 800 mg tablet 800 mg PO TID aspirin [Adult Low Dose Aspirin] 81 mg tablet,delayed release (DR/EC) 81 mg PO DAILY escitalopram oxalate [Lexapro] 20 mg tablet 20 mg PO DAILY mirtazapine 45 mg tablet 45 mg PO BEDTIME atorvastatin [Lipitor] 80 mg tablet 80 mg PO BEDTIME Tresiba FlexTouch U-100 100 unit/mL (3 mL) insulin pen 10 unit subcut DAILY (DME) FreeStyle Lite Strips Strip See Rx Instructions Not Applicable QID Qty: 10 Rx Instructions: As directed clotrimazole 1 % cream 1 appl topical BID Referrals: Radha Jamison DO [Primary Care Provider] - 2 days Interventions: ED Discharge Assessment Last Done: 04/17/22 10:59 Discharge Date/Time: 04/17/22 11:00 Print Language: Surinamese
[2022-04-17 10:55] VITALS: PULSE 73; O2SAT 99
[2022-04-17 10:57] VITALS: BP 174/78
[2022-04-17] MEDS: Cyclobenzaprine HCl 10 MG TABLET PO (10:57)
[2022-04-17 11:02] LABS: Appearance Urine Clear; Color Urine Yellow; Glucose Urine UA 100 mg/dL (Negative); Leukocyte Esterase Urine Negative (Negative); Nitrite Urine Negative (Negative); PH 7.5 (5.0-9.0); Specific Gravity - Urine >= 1.030 (1.005-1.025); UMIC TRIGGER UACC YES; Urine Blood Negative (Negative); Urine Ketones Negative (Negative); Urine Protein 100 (2+) mg/dL (Neg-Trace)
[2022-04-17 11:05] LABS: Bacteria Urine None Seen (None Seen); Hyaline Casts Urine 0-2 /LPF (0-2); WBC Urine 0-5 /HPF (0-5)
== END 2022-04-17 11:00 | disposition home or self-care (01) ==
PROVIDERS: Physician Assistant Medical; Emergency Provider Emergency Medicine; PCP Family Medicine
DX: K59.00 Constipation, unspecified (principal); R10.9 Unspecified abdominal pain; Z79.899 Other long term (current) drug therapy
CPT/HCPCS: 36415; 74177; 80048; 80076; 81001; 81003; 83690; 83735; 85025; 85652; 86140; 96361; 96374; 96375; 99284; J2270; J2405; Q9967

== ENCOUNTER 2022-04-24 16:01 | Emergency (ER) | payer MEDICAID, SELFPAY ==
[2022-04-24 16:03] VITALS: BP 179/81; PULSE 100; RESP 16; TEMP 36.2; O2SAT 100; BMI 26.9
--- NOTE | 2022-04-24 16:07 | ED.HA ---
HPI - Headache General Chief Complaint: Headache <BENJAMÍN Becker - Last Filed: 04/24/22 16:09> Stated Complaint: headache <BENJAMÍN Becker - Last Filed: 04/24/22 16:09> Time Seen by Provider: 04/24/22 16:22 <BENJAMÍN Becker - Last Filed: 04/24/22 16:09> Source: patient <BENJAMÍN Lewis - Last Filed: 04/24/22 17:55> Mode of arrival: ambulatory <BENJAMÍN Lewis - Last Filed: 04/24/22 17:55> Limitations: no limitations <BENJAMÍN Lewis - Last Filed: 04/24/22 17:55> History of Present Illness HPI Narrative: This is a 61-year-old female past medical history significant for migraines, diabetes, hyperlipidemia, coronary artery disease, peripheral artery disease, H pylori, hypertension presenting to the emergency department with concerns of hypertension, left-sided headache and blurred vision. Patient tells me all the symptoms started yesterday suddenly. Patient tells me she has a history of migraines which typically go away with odsg-anx-wcgwwqf medicine however this migraine seems to not be going away. Patient tells me it is localized to the left side of her head that is causing her to have left-sided blurred vision. Patient tells me that last night her blood pressure was elevated, when she checked it at home her pressure was 234/118, she tells me moments after checking her pressure she noted that blood vessels in her eye were red and inflamed. She tells me this is never happened to her before. Patient takes hydrochlorothiazide, lisinopril for hypertension, in tells me she has been med compliant. She reports yesterday she was having some lightheadedness however that has resolved ever since. At this time patient denies chest pain, shortness of breath, vision changes, dizziness, nausea, vomiting, abdominal pain, lower extremity edema or swelling.Patient reports she took Tylenol just prior to arrival and has helped to symptomatic improvement NIH stroke scale on arrival 0 <BENJAMÍN Lewis Last Filed: 04/24/22 17:55> Related Data Home Medications: Home Medications Medication Instructions Recorded Confirmed metformin 1,000 mg tablet 1,000 mg PO BID 12/22/19 05/07/21 aspirin 81 mg tablet,delayed 81 mg PO DAILY 01/02/20 05/07/21 release (Adult Low Dose Aspirin) atorvastatin 80 mg tablet (Lipitor) 80 mg PO BEDTIME 01/02/20 05/07/21 carvedilol 25 mg tablet (Coreg) 25 mg PO BID 01/02/20 05/07/21 escitalopram oxalate 20 mg tablet 20 mg PO DAILY 01/02/20 05/07/21 (Lexapro) gabapentin 800 mg tablet 800 mg PO TID 01/02/20 05/07/21 insulin degludec 100 unit/mL (3 10 unit subcut DAILY 01/02/20 05/07/21 mL) subcutaneous pen (Tresiba FlexTouch U-100 insulin) lisinopril 40 mg tablet 40 mg PO DAILY 01/02/20 05/07/21 mirtazapine 45 mg tablet 45 mg PO BEDTIME 01/02/20 05/07/21 multivitamin 1 tab PO DAILY 01/02/20 05/07/21 acetaminophen 650 mg 650 mg PO Q8H PRN Pain (Scale 01/16/21 05/07/21 tablet,extended release (Arthritis Score 1-3) Pain Relief (acetaminophen) ER) amlodipine 10 mg tablet 10 mg PO BEDTIME 01/16/21 05/07/21 docusate sodium 100 mg capsule 100 mg PO BID 01/16/21 05/07/21 fluticasone propionate 110 2 puff inhalation BID 01/16/21 05/07/21 mcg/actuation HFA aerosol inhaler (Flovent HFA) fluticasone propionate 50 2 spray intranasal DAILY 01/16/21 05/07/21 mcg/actuation nasal spray,suspension hydralazine 50 mg tablet 50 mg PO TID 01/16/21 05/07/21 lidocaine 5 % topical patch 1 patch topical DAILY 01/16/21 05/07/21 (Lidoderm) pantoprazole 40 mg tablet,delayed 40 mg PO BID@0630,1630 01/16/21 05/07/21 release (Protonix) blood sugar diagnostic (FreeStyle #10 ea 03/30/21 Lite Strips) clotrimazole 1 % topical cream 1 appl topical BID 03/30/21 05/07/21 amitriptyline 50 mg tablet 1 tab PO BEDTIME 05/07/21 05/07/21 oxycodone-acetaminophen 7.5 mg-325 1 tab PO Q6H PRN severe pain 05/07/21 05/07/21 mg tablet Previous Rx's Medication Instructions Recorded ferrous sulfate 325 mg (65 mg 325 mg PO BID #60 tabs 05/24/20 iron) tablet hydrochlorothiazide 25 mg tablet 25 mg PO DAILY #30 tabs 08/13/20 clopidogrel 75 mg tablet (Plavix) 75 mg PO DAILY #30 tabs 12/02/20 pioglitazone 15 mg tablet 15 mg PO DAILY 30 days #30 tabs 12/02/20 albuterol sulfate 2.5 mg/3 mL 2.5 mg (3 mL) inhalation Q4H PRN 01/19/21 (0.083 %) solution for nebulization shortness of breath/wheeze #100 mL tramadol 50 mg tablet 50 mg PO BID PRN pain #7 tabs 05/06/21 amoxicillin 875 mg-potassium 1 tab PO BID #20 tabs 05/09/21 clavulanate 125 mg tablet polyethylene glycol 3350 17 17 g PO DAILY #238 grams 07/12/21 gram/dose oral powder (Miralax) dulaglutide 0.75 mg/0.5 mL 0.75 mg (0.5 mL) subcut QWEEK 30 07/14/21 subcutaneous pen injector days #2.5 mL (Trulicity) lancets 33 gauge (TRUEplus Lancets) #100 ea 07/26/21 hydralazine 50 mg tablet 50 mg PO TID #3 tabs 09/21/21 cyclobenzaprine 10 mg tablet 10 mg PO TID #10 tabs 10/05/21 insulin lispro protamine-lispro 6 unit (0.06 mL) subcut QAM #10 mL 12/25/21 100 unit/mL (50-50) subcutaneous susp (Humalog Mix 50-50 Insuln U-100) cefuroxime axetil 250 mg tablet 250 mg PO BID 7 days #14 tabs 01/22/22 cyclobenzaprine 10 mg tablet 10 mg PO TID PRN muscle spasm #14 01/22/22 tabs acetaminophen 325 mg tablet 650 mg PO Q6H PRN pain #60 tabs 03/09/22 (Tylenol) clonidine 0.2 mg/24 hr weekly 1 patch transdermal QWEEK #4 ea 03/09/22 transdermal patch cyclobenzaprine 10 mg tablet 10 mg PO Q8H #14 tabs 04/17/22 docusate sodium 100 mg capsule 100 mg PO BID PRN Constipation #14 04/17/22 (Colace) caps polyethylene glycol 3350 17 17 g PO DAILY #238 grams 04/17/22 gram/dose oral powder (Miralax) diphenhydramine HCl 25 mg capsule 25 mg PO TID PRN allergic reaction 04/24/22 (Benadryl) #20 caps metoclopramide HCl 10 mg tablet 10 mg PO Q6H PRN headache #20 tabs 04/24/22 (Reglan) <BENJAMÍN Becker - Last Filed: 04/24/22 16:09> Allergies/Adverse Reactions: Allergies Allergy/AdvReac Type Severity Reaction Status Date / Time latex [LATEX] Allergy Unknown RASH Verified 04/24/22 16:09 naproxen [From NAPROSYN] Allergy Unknown TACHYCARDIA Verified 04/24/22 16:09 <BENJAMÍN Becker - Last Filed: 04/24/22 16:09> Review of Systems Review of Systems: Constitutional : No Weight loss, No Fever, No Chills, No Fatigue, No Malaise ENT/Mouth : No sore throat, No Rhinorrhea Eyes: No Eye Pain, No Swelling, No Redness Cardiovascular : No Chest Pain, No SOB, No Dyspnea on Exertion, No Orthopnea, No Edema, No Palpitations Respiratory : No Cough, No Sputum, No Wheezing Gastrointestinal : No Nausea, No Vomiting, No Diarrhea, No Constipation, No abdominal Pain, No Hematochezia, No Melena Genitourinary : No Dysuria, No Urinary Frequency, No Hematuria, Musculoskeletal : No joint pain, No Myalgias, No Joint Swelling Skin : No Skin Lesions, No rash Neuro : No Weakness, No Numbness, No Dizziness, + Headache Psych : No Anxiety/Panic, No Depression All other systems reviewed and are negative <BENJAMÍN Lewis Last Filed: 04/24/22 17:55> Yes all other systems are reviewed and are negative <BENJAMÍN Lewis Last Filed: 04/24/22 17:55> [facility] Past Medical History Attestation statement: The following information was validated with the patient. <BENJAMÍN Lewis - Last Filed: 04/24/22 17:55> Source: old records reviewed and nursing notes reviewed <BENJAMÍN Lewis - Last Filed: 04/24/22 17:55> Medical History: Medical History Arthritis Asthma CAD (coronary artery disease) Cyst (solitary) of breast Diabetes H. pylori infection HLD (hyperlipidemia) HTN (hypertension) HTN (hypertension) Kidney calculi T2DM (type 2 diabetes mellitus) Vitamin D deficiency <BENJAMÍN Becker - Last Filed: 04/24/22 16:09> Surgical History: Surgical History History of breast surgery History of cardiac cath History of esophagogastroduodenoscopy (EGD) Hx of colonoscopy <BENJAMÍN Becker - Last Filed: 04/24/22 16:09> Family History Family History: Family History Mother Diabetes Liver cancer <BENJAMÍN Becker - Last Filed: 04/24/22 16:09> Social History Social History: Social History Household Members: Children and Friend(s) Housing: Apartment Do you presently have visiting nurse or other home services: No Alcohol intake: never Patient Tobacco Use Status: Current everyday Tobacco user Tobacco use type: Cigarette Cigarettes Per Day: 2 Years Smoked: 40 +/- e-Cigarette/Vaping Use: Never Used Second Hand Smoke Exposure: No Advance Directives: No Advance Directives Information Provided: Yes service: No Current occupational status: unemployed and disabled <BENJAMÍN Becker - Last Filed: 04/24/22 16:09> Physical Exam Vital Signs: Vital Signs: Last Vital Signs Temp 97.2 F 04/24/22 16:03 Pulse 80 04/24/22 17:19 Resp 16 04/24/22 17:19 BP 164/77 H 04/24/22 17:19 Pulse Ox 100 04/24/22 17:19 O2 Del Method 04/24/22 17:19 BMI result Body Mass Index 26.9 <BENJAMÍN Becker - Last Filed: 04/24/22 16:09> Vital Signs: Last Vital Signs Temp 97.2 F 04/24/22 16:03 Pulse 80 04/24/22 17:19 Resp 16 04/24/22 17:19 BP 164/77 H 04/24/22 17:19 Pulse Ox 100 04/24/22 17:19 O2 Del Method 04/24/22 17:19 BMI result Body Mass Index 26.9 Vital signs stable <BENJAMÍN Lewis - Last Filed: 04/24/22 17:55> Appearance: Alert.? Oriented X3.? No acute distress.? Head: Normocephalic, atraumatic, no step-offs or deformities Eyes: Pupils equal, round and reactive to light.? ENT: Pharynx normal.? Neck: Normal inspection.? Neck supple.? CVS: Normal heart rate and rhythm.? Pulses normal.? Respiratory: No respiratory distress.? Breath sounds normal.? Abdomen: Soft and nontender.? Skin: Skin warm and dry.? Normal skin color.? Normal skin turgor.? Extremities: No lower extremity edema.? No calf ttp. 5/5 strength to bilateral upper and lower extremities Neuro: Oriented X 3.? No motor deficit.? No sensory deficit. CN 2-12 intact . Normal nhwnkh-oo-hpac, tbkz-ys-sqwy, steady tandem gait with normal coordination. Negative Romberg and pronator drift. Bilateral eye pressures taking left eye with a pressure of 13, right eye pressure of 11. <BENJAMÍN Lewis - Last Filed: 04/24/22 17:55> Course Course Course Narrative: RME - 61 yo female with history of migraines, DM, HLD, PAD, CAD, HTN who presents to the ER for evaluation of left sided headache for the last 2 days. She also reports high BP yesterday and broken blood vessels in her left eye. Reports blurry vision on the left eye. No chest pain. Hypertensive in triage 179/81. Plan: visual acuity, labs, treat headache and reassess/ <BENJAMÍN Becker - Last Filed: 04/24/22 16:09> Reevaluation(s) Reevaluation #1: CBC appears to be within patient's baseline. Chemistry with no acute electrolyte abnormalities requiring intervention. Patient's glucose is elevated however this appears to be around her baseline, patient is on home meds for diabetes, patient will not require hospital admission she will continue her home meds when she goes home I did educate her her sugar today was 269. Tells me she will continue her home medications. Bilateral visual acuity test done by this KIM[facility] left eye and right eye post 20/50 with out visual assist. I believe that the values entered by nursing were incorrect. Patient tells me she is feeling much better after Reglan and Benadryl. Her headache has much improved. Will give a dose of Tylenol at this time in discharge patient home. Educated patient on diagnosis and treatment plan, answered all question, patient verbalizes understanding. At this time patient will be discharged home, advised to return with new or worsening symptoms. Educated on worrisome signs and symptoms and when to return. At this time I feel comfortable discharge home. <BENJAMÍN Lewis - Last Filed: 04/24/22 17:55> Time: 17:52 <BENJAMÍN Lewis - Last Filed: 04/24/22 17:55> Medications Administered Discontinued Medications Generic Name Dose Route Start Last Admin Trade Name Freq PRN Reason Stop Dose Admin Diphenhydramine HCl 25 mg 04/24/22 16:22 04/24/22 16:55 Diphenhydramine Hcl 50 Mg/Ml Vial IVPUSH 04/24/22 16:23 25 mg ONCE ONE Administration Metoclopramide HCl 10 mg 04/24/22 16:22 04/24/22 16:54 Metoclopramide Hcl 10 Mg/2 Ml Vial IVPUSH 04/24/22 16:23 10 mg ONCE ONE Administration <BENJAMÍN Becker - Last Filed: 04/24/22 16:09> Medications Administered Discontinued Medications Generic Name Dose Route Start Last Admin Trade Name Freq PRN Reason Stop Dose Admin Diphenhydramine HCl 25 mg 04/24/22 16:22 04/24/22 16:55 Diphenhydramine Hcl 50 Mg/Ml Vial IVPUSH 04/24/22 16:23 25 mg ONCE ONE Administration Metoclopramide HCl 10 mg 04/24/22 16:22 04/24/22 16:54 Metoclopramide Hcl 10 Mg/2 Ml Vial IVPUSH 04/24/22 16:23 10 mg ONCE ONE Administration <BENJAMÍN Lewis Last Filed: 04/24/22 17:55> Medical Decision Making Medical Decision Making [facility] Narrative: 1630 61-year-old female presents with left-sided headache, blurred vision and concerns for hypertension x2 days. Upon chart review it appears as though patient had a head CT recently on 02/28/2022, which showed no acute intracranial pathology. Physical exam significant for Oriented X 3.? No motor deficit.? No sensory deficit. CN 2-12 intact . Normal bwklak-ln-sozz, yadb-em-taem, steady tandem gait with normal coordination. Negative Romberg and pronator drift. Bilateral eye pressures taking left eye with a pressure of 13, right eye pressure of 11. History and physical examination concerning for typical migraine versus ocular migraine. Unlikely stroke, posterior stroke, TIA, temporal arteritis, acute closed angle glaucoma or wet macular degeneration. No meningeal signs on exam Plan at this time is Reglan and Benadryl as patient just took Tylenol. Will obtain basic labs. Inflammatory markers. Will continue to monitor <BENJAMÍN Lewis Last Filed: 04/24/22 17:55> Differential Diagnosis Differential Diagnoses: The differential diagnosis associated with the presentation includes <BENJAMÍN Lewis Last Filed: 04/24/22 17:55> History and physical examination concerning for typical migraine versus ocular migraine. Unlikely stroke, posterior stroke, TIA, temporal arteritis, acute closed angle glaucoma or wet macular degeneration. No meningeal signs on exam <BENJAMÍN Lewis Last Filed: 04/24/22 17:55> Admission/Observation Consideration of admission/observation: Escalation of care including admission/observation considered <BENJAMÍN Lewis Last Filed: 04/24/22 17:55> unlikely <BENJAMÍN Lewis Last Filed: 04/24/22 17:55> Lab Data [facility] Lab Attestation statement: I reviewed the patient's lab results. <BENJAMÍN Lewis Last Filed: 04/24/22 17:55> Result Diagrams: 04/24/22 16:19 04/24/22 16:19 <BENJAMÍN Becker - Last Filed: 04/24/22 16:09> Labs: Lab Results 04/24/22 04/24/22 04/24/22 Range/Units 16:19 16:19 16:19 WBC 7.3 (4.8-10.8) X10*3/uL RBC 4.14 L (4.20-5.50) X10*6/uL Hgb 12.1 (12.0-16.0) g/dl Hct 36.6 L (37.0-47.0) % MCV 88.4 (80.0-98.0) fL MCH 29.2 (27.0-33.0) pg MCHC 33.1 (31.0-35.0) g/dl RDW 13.4 (11.0-16.0) % Plt Count 333 (160-400) X10*3/uL MPV 8.9 L (9.4-12.3) fL Immature Gran % (Auto) 0.3 (0.0-0.4) % Neut % (Auto) 62.4 (45-73) % Lymph % (Auto) 28.8 (20-40) % [place] % (Auto) 5.3 (2-11) % Eos % (Auto) 2.7 (0-4) % Baso % (Auto) 0.5 (0-2) % Lymph # (Auto) 2.1 (1.2-4.9) X10*3/uL [place] # (Auto) 0.4 (0.1-1.2) X10*3/uL Eos # (Auto) 0.2 (0.0-0.4) X10*3/uL Baso # (Auto) 0.0 (0.0-0.2) X10*3/uL Abs Immat Gran (auto) 0.02 (0.00-0.03) X10*3/uL Absolute Neuts (auto) 4.6 (2.0-8.3) x10*3/uL Absolute Nucleated RBC 0.000 (0.0-0.012) X10*3/uL Nucleated RBC % (auto) 0.0 (0.0-0.2) /100WBC ESR 23 H (0-20) MM/HR Sodium 135 (135-145) mmol/L Potassium 4.7 (3.3-5.1) mmol/L Chloride 100 (96-108) mmol/L Carbon Dioxide 27 (22-29) mmol/L Anion Gap 13 (12-20) BUN 20 H (9-16) mg/dL Creatinine 1.01 (0.5-1.4) mg/dL Estim Creat Clear Calc 48.8 Estimated GFR 56 Random Glucose 269 H (60-115) mg/dL Calcium 9.2 (8.4-10.2) mg/dL Magnesium 1.7 (1.6-2.6) mg/dL Total Bilirubin 0.6 (0.0-1.0) mg/dL Direct Bilirubin < 0.2 (0.0-0.5) mg/dL AST 11 (5-31) U/L ALT 6 (0-31) U/L Alkaline Phosphatase 80 (39-117) U/L C-Reactive Protein 0.28 (< or = 0.50) mg/dL Total Protein 6.5 (6.5-8.0) g/dL Albumin 4.0 (3.5-5.0) g/dL <BENJAMÍN Becker - Last Filed: 04/24/22 16:09> Lab Results 04/24/22 04/24/22 04/24/22 Range/Units 16:19 16:19 16:19 WBC 7.3 (4.8-10.8) X10*3/uL RBC 4.14 L (4.20-5.50) X10*6/uL Hgb 12.1 (12.0-16.0) g/dl Hct 36.6 L (37.0-47.0) % MCV 88.4 (80.0-98.0) fL MCH 29.2 (27.0-33.0) pg MCHC 33.1 (31.0-35.0) g/dl RDW 13.4 (11.0-16.0) % Plt Count 333 (160-400) X10*3/uL MPV 8.9 L (9.4-12.3) fL Immature Gran % (Auto) 0.3 (0.0-0.4) % Neut % (Auto) 62.4 (45-73) % Lymph % (Auto) 28.8 (20-40) % [place] % (Auto) 5.3 (2-11) % Eos % (Auto) 2.7 (0-4) % Baso % (Auto) 0.5 (0-2) % Lymph # (Auto) 2.1 (1.2-4.9) X10*3/uL [place] # (Auto) 0.4 (0.1-1.2) X10*3/uL Eos # (Auto) 0.2 (0.0-0.4) X10*3/uL Baso # (Auto) 0.0 (0.0-0.2) X10*3/uL Abs Immat Gran (auto) 0.02 (0.00-0.03) X10*3/uL Absolute Neuts (auto) 4.6 (2.0-8.3) x10*3/uL Absolute Nucleated RBC 0.000 (0.0-0.012) X10*3/uL Nucleated RBC % (auto) 0.0 (0.0-0.2) /100WBC ESR 23 H (0-20) MM/HR Sodium 135 (135-145) mmol/L Potassium 4.7 (3.3-5.1) mmol/L Chloride 100 (96-108) mmol/L Carbon Dioxide 27 (22-29) mmol/L Anion Gap 13 (12-20) BUN 20 H (9-16) mg/dL Creatinine 1.01 (0.5-1.4) mg/dL Estim Creat Clear Calc 48.8 Estimated GFR 56 Random Glucose 269 H (60-115) mg/dL Calcium 9.2 (8.4-10.2) mg/dL Magnesium 1.7 (1.6-2.6) mg/dL Total Bilirubin 0.6 (0.0-1.0) mg/dL Direct Bilirubin < 0.2 (0.0-0.5) mg/dL AST 11 (5-31) U/L ALT 6 (0-31) U/L Alkaline Phosphatase 80 (39-117) U/L C-Reactive Protein 0.28 (< or = 0.50) mg/dL Total Protein 6.5 (6.5-8.0) g/dL Albumin 4.0 (3.5-5.0) g/dL <BENJAMÍN Lewis - Last Filed: 04/24/22 17:55> Tests considered The following testing was considered but not selected: I considered obtaining head CT however patient had 1 done on on 02/28/2022, patient tells me this feels like her typical migraine however is not going away with bawf-clz-sjjwxfb medications. Neuro nonfocal, cerebellar intact low suspicion for intracranial hemorrhage, posterior stroke. NIH stroke scale 0. CTA not indicated no focal neuro deficits. No indication for MRI at this time <BENJAMÍN Lewis - Last Filed: 04/24/22 17:55> Core Measures AMI core measures followed: Yes <BENJAMÍN Lewis - Last Filed: 04/24/22 17:55> Measure exclusions: not indicated <BENJAMÍN Lewis - Last Filed: 04/24/22 17:55> Critical Care Time Critical Care Time Critical Care Time: No <BENJAMÍN Lewis - Last Filed: 04/24/22 17:55> Discharge Plan Discharge Clinical Impression: Headache <BENJAMNÍ Becker - Last Filed: 04/24/22 16:09> Patient Disposition: Home, Self-Care <BENJAMÍN Becker - Last Filed: 04/24/22 16:09> Instructions: Acute Headache (ED) <BENJAMÍN Becker - Last Filed: 04/24/22 16:09> Additional Instructions: Take your medications as prescribed. If you were prescribed antibiotics today, it is important that you take your medication to their entirety, do not skip any doses, do not finish them early. Follow-up with your primary care provider this week. Return to the emergency department with new or worsening symptoms. Such as fevers, chills, chest pain, shortness of breath, nausea, vomiting, dizziness, headache, vision changes, lethargy In case of emergency call 911 I have sent Reglan and Benadryl to your pharmacy. Please take these together. Please do not take Reglan alone as it can cause involuntary muscle twitching. You can add Tylenol or ibuprofen to these medications. [place] fransioc medicamentos seg?n lo prescrito. Si le recetaron antibi?ticos hoy, es importante que tome weaver medicamento en weaver totalidad, no se salte ninguna dosis, no los termine antes de tiempo. Seguimiento con weaver proveedor de atenci?n primaria esta semana. Regrese al departamento de emergencias con s?ntomas nuevos o que empeoran. Laurie fiebre, escalofr?os, dolor de pecho, dificultad para respirar, n?useas, v?mitos, mareos, dolor de omar, cambios en la visi?n, letargo En lydia de emergencia llama al 911 He enviado Reglan y Benadryl a weaver farmacia. Por favor, tome estos juntos. No tome Reglan solo, ya que puede causar espasmos musculares involuntarios. Puede agregar Tylenol o ibuprofeno a estos medicamentos. <BENJAMÍN Becker - Last Filed: 04/24/22 16:09> Prescriptions: New diphenhydramine HCl [Benadryl] 25 mg capsule 25 mg PO TID PRN (Reason: allergic reaction) Qty: 20 0RF metoclopramide HCl [Reglan] 10 mg tablet 10 mg PO Q6H PRN (Reason: headache) Qty: 20 0RF No Action hydrochlorothiazide 25 mg tablet 25 mg PO DAILY Qty: 30 0RF Rx Instructions: Must call to schedule a cardiology appointment for more refills - overdue pioglitazone 15 mg tablet 15 mg PO DAILY 30 Days Qty: 30 11RF Trulicity 0.75 mg/0.5 mL pen injector 0.75 mg subcut QWEEK 30 Days Qty: 2.5 3RF (DME) lancets [TRUEplus Lancets] 33 gauge misc See Rx Instructions .Route Qty: 100 11RF Rx Instructions: 4x daily metformin 1,000 mg Tablet 1,000 mg PO BID ferrous sulfate 325 mg (65 mg iron) tablet 325 mg PO BID Qty: 60 0RF clopidogrel [Plavix] 75 mg tablet 75 mg PO DAILY Qty: 30 5RF polyethylene glycol 3350 [Miralax] 17 gram/dose powder 17 g PO DAILY Qty: 238 0RF Humalog Mix 50-50 Insuln U-100 100 unit/mL (50-50) suspension 6 unit subcut QAM Qty: 10 0RF cefuroxime axetil 250 mg tablet 250 mg PO BID 7 Days Qty: 14 0RF cyclobenzaprine 10 mg tablet 10 mg PO TID PRN (Reason: muscle spasm) Qty: 14 0RF clonidine 0.2 mg/24 hr patch weekly 1 patch transdermal QWEEK Qty: 4 0RF acetaminophen [Tylenol] 325 mg tablet 650 mg PO Q6H PRN (Reason: pain) Qty: 60 0RF cyclobenzaprine 10 mg tablet 10 mg PO Q8H Qty: 14 0RF docusate sodium [Colace] 100 mg capsule 100 mg PO BID PRN (Reason: Constipation) Qty: 14 0RF polyethylene glycol 3350 [Miralax] 17 gram/dose powder 17 g PO DAILY Qty: 238 0RF amlodipine 10 mg Tablet 10 mg PO BEDTIME docusate sodium 100 mg Capsule 100 mg PO BID hydralazine 50 mg Tablet 50 mg PO TID pantoprazole [Protonix] 40 mg tablet,delayed release (DR/EC) 40 mg PO BID@0630,1630 lidocaine [Lidoderm] 5 % Adhesive Patch,Medicated 1 patch TOPICAL DAILY fluticasone propionate 50 mcg/actuation [place],Suspension 2 spray INTRANASAL DAILY acetaminophen [Arthritis Pain Relief (acetam)] 650 mg Tablet Extended Release 650 mg PO Q8H PRN (Reason: Pain (Scale Score 1-3)) Flovent HFA 110 mcg/actuation Hfa Aerosol Inhaler 2 puff INHALATION BID albuterol sulfate 2.5 mg /3 mL (0.083 %) Solution For Nebulization 2.5 mg inhalation Q4H PRN (Reason: shortness of breath/wheeze) Qty: 100 0RF tramadol 50 mg tablet 50 mg PO BID PRN (Reason: pain) Qty: 7 0RF amitriptyline 50 mg tablet 1 tab PO BEDTIME oxycodone-acetaminophen 7.5-325 mg tablet 1 tab PO Q6H PRN (Reason: severe pain) amoxicillin-pot clavulanate 875-125 mg tablet 1 tab PO BID Qty: 20 0RF hydralazine 50 mg tablet 50 mg PO TID Qty: 3 0RF cyclobenzaprine 10 mg tablet 10 mg PO TID Qty: 10 0RF carvedilol [Coreg] 25 mg tablet 25 mg PO BID Rx Instructions: must administer with a meal/food multivitamin Tablet 1 tab PO DAILY lisinopril 40 mg tablet 40 mg PO DAILY gabapentin 800 mg tablet 800 mg PO TID aspirin [Adult Low Dose Aspirin] 81 mg tablet,delayed release (DR/EC) 81 mg PO DAILY escitalopram oxalate [Lexapro] 20 mg tablet 20 mg PO DAILY mirtazapine 45 mg tablet 45 mg PO BEDTIME atorvastatin [Lipitor] 80 mg tablet 80 mg PO BEDTIME Tresiba FlexTouch U-100 100 unit/mL (3 mL) insulin pen 10 unit subcut DAILY (DME) FreeStyle Lite Strips Strip See Rx Instructions Not Applicable QID Qty: 10 Rx Instructions: As directed clotrimazole 1 % cream 1 appl topical BID <BENJAMÍN Becker - Last Filed: 04/24/22 16:09> Referrals: Radha Jamison DO [Primary Care Provider] - 2 days <BENJAMÍN Becker - Last Filed: 04/24/22 16:09> Stand Alone Forms: Work/School Release <BENJAMÍN Becker - Last Filed: 04/24/22 16:09>
[2022-04-24 16:24] LABS: MANUAL DIFF FLAG NO
[2022-04-24 16:25] LABS: Basophils Percent Auto 0.5 % (0-2); Eosinophils Absolute Auto 0.2 X10*3/uL (0.0-0.4); Eosinophils Percent Auto 2.7 % (0-4); Hematocrit 36.6 % (37.0-47.0); Hemoglobin 12.1 g/dl (12.0-16.0); Imm Gran Abs Auto 0.02 X10*3/uL (0.00-0.03); Imm Gran Pct Auto 0.3 % (0.0-0.4); Lymphocytes Absolute Auto 2.1 X10*3/uL (1.2-4.9); Lymphocytes Percent Auto 28.8 % (20-40); Mean Corpuscular HGB Conc 33.1 g/dl (31.0-35.0); Mean Corpuscular Hemoglobin 29.2 pg (27.0-33.0); Mean Corpuscular Volume 88.4 fL (80.0-98.0); Mean Platelet Volume 8.9 fL (9.4-12.3); Monocytes Absolute Auto 0.4 X10*3/uL (0.1-1.2); Monocytes Percent Auto 5.3 % (2-11); Neutrophils Absolute Auto 4.6 x10*3/uL (2.0-8.3); Neutrophils Percent Auto 62.4 % (45-73); Platelet Count 333 X10*3/uL (160-400); Red Blood Count 4.14 X10*6/uL (4.20-5.50); Red Cell Distribution Width 13.4 % (11.0-16.0); White Blood Count 7.3 X10*3/uL (4.8-10.8)
[2022-04-24 16:42] LABS: Alanine Aminotransferase 6 U/L (0-31); Alkaline Phosphatase 80 U/L (39-117); Anion Gap 13 (12-20); Aspartate Amino Transferase 11 U/L (5-31); Bilirubin Direct < 0.2 mg/dL (0.0-0.5); Bilirubin Total 0.6 mg/dL (0.0-1.0); Blood Urea Nitrogen 20 mg/dL (9-16); C Reactive Protein 0.28 mg/dL (< or = 0.50); Calcium 9.2 mg/dL (8.4-10.2); Carbon Dioxide 27 mmol/L (22-29); Chloride 100 mmol/L (96-108); Creatinine Clr Calc Pharmacy 48.8; Estimated Glomerular Filt Rate 56; Glucose Random 269 mg/dL (60-115); Magnesium 1.7 mg/dL (1.6-2.6); Potassium 4.7 mmol/L (3.3-5.1); Sodium 135 mmol/L (135-145); Total Protein 6.5 g/dL (6.5-8.0)
[2022-04-24] MEDS: Metoclopramide HCl 10 MG/2 ML VIAL IVPUSH (16:54)
[2022-04-24] MEDS: diphenhydrAMINE HCL 50 MG/ML VIAL 25 MG IVPUSH (16:55)
[2022-04-24 17:07] LABS: Erythrocyte Sedimentation Rate 23 MM/HR (0-20)
[2022-04-24 17:19] VITALS: BP 164/77; PULSE 80; RESP 16; O2SAT 100
[2022-04-24] MEDS: Acetaminophen 325 MG TABLET 650 MG PO (18:03)
--- NOTE | 2022-04-24 18:04 | PC.NURSE ---
pt medicated per provider order, reporting 3/10 headache.
== END 2022-04-24 18:09 | disposition home or self-care (01) ==
PROVIDERS: Physician Assistant; Emergency Provider Emergency Medicine; PCP Family Medicine
DX: G43.909 Migraine, unspecified, not intractable, without status migrainosus (principal); I10 Essential (primary) hypertension; I25.10 Atherosclerotic heart disease of native coronary artery without angina pectoris; F17.210 Nicotine dependence, cigarettes, uncomplicated; Z71.6 Tobacco abuse counseling; Z79.899 Other long term (current) drug therapy
CPT/HCPCS: 36415; 80048; 80076; 83735; 85025; 85652; 86140; 96374; 96375; 99283; 99284; J1200; J2765

== ENCOUNTER 2022-05-11 12:47 | Outpatient (REF) | payer MEDICAID, SELFPAY ==
--- NOTE | ~2022-05-11 | CT_ITS ---
EXAMINATION: CT HEAD WITHOUT CONTRAST CLINICAL INFORMATION: Worsening dizziness COMPARISON: Radius head CT scans most recent February 2022 TECHNIQUE: Contiguous axial imaging was performed from the skull base to vertex without intravenous administration of contrast. This CT examination was performed using dose optimization techniques as appropriate, variously including the following: *Automated exposure control *Adjustment of mA and/or kV according to patient size (this includes techniques or standardized protocols for targeted exams where dose is matched to indication/reason for exam; i.e. extremities or head) *Use of iterative reconstruction technique DLP: 600 mGy-cm FINDINGS: There is no evidence of an extra-axial collection. There is no evidence of intra or extra-axial hemorrhage. The ventricles and extra-axial CSF spaces are appropriate. Kelly-white matter differentiation is normal. No mass, mass effect or infarct. Mild atherosclerotic disease. Bony structures are normal. No skull fracture. Mild inflammatory changes in the right frontal and bilateral ethmoid sinuses. Mastoid air cells and middle ears are clear. CT/CT head/brain wo IV con IMPRESSION: No acute intracranial findings.
== END 2022-05-11 12:48 | disposition home or self-care (01) ==
LOC: HO.CT 12:47
PROVIDERS: PCP Family Medicine; Visit Provider Family Medicine
DX: R42 Dizziness and giddiness (principal)
CPT/HCPCS: 70450

== ENCOUNTER → 2022-05-11 13:05 | Outpatient (REF) | payer MEDICAID, SELFPAY ==
--- NOTE | 2022-05-11 13:07 | CA_ITS ---
Transthoracic Echocardiogram Patient (Last, First, Middle): Rocío Hallman, Gender: Female Date of : 1960 Age: 61 Procedure Date: 05/11/2022 Procedure Type: Transthoracic Echocardiogram Location: OP Height: 152.4 cm Weight: 63.05 kg BSA: 1.60 m2 Heart Rate: bpm BP: 126 / 80 mmHg County Director Welfare: Referring MD: Radha Jamison DO Symptoms: I35.0 MILD AORTIC STENOSIS, INTERMITTEN DIZZINES Study Quality: Good ECG Rhythm: Sinus Conclusions: - The left ventricular systolic function is normal. The calculated ejection fraction is 58% by biplane method. - There is mild aortic valve stenosis. - There is mild mitral annular calcification. - Small plaque is seen in the sino tubular ridge. Findings Left Ventricle Normal left ventricular cavity size. There is mildly increased left ventricular wall thickness. The left ventricular systolic function is normal. The calculated ejection fraction is 58% by biplane method. There is no evidence of regional wall motion abnormalities. E/E prime ratio is between 8 and 15 consistent with indeterminate filling pressures. Evidence suggests grade I (mild) diastolic dysfunction. Right Ventricle Normal right ventricular cavity size and systolic function. Atria Both atria are normal in size. Aortic Valve There is moderate calcification of the aortic valve. There is mild aortic valve stenosis. There is no aortic valve regurgitation. Cannot exclude bicuspid aortic valve. Mitral Valve There is mild mitral annular calcification. There is trace mitral valve regurgitation. There is no mitral valve stenosis. Pulmonic Valve The pulmonic valve is likely normal. Tricuspid Valve Normal tricuspid valve structure. There is trace tricuspid valve regurgitation. There is no evidence of pulmonary hypertension. Great Vessels The asc aorta is normal in size. Small plaque is seen in the sino tubular ridge. Venous The inferior vena cava is normal in size and collapses greater than 50% with inspiration. Pericardium/Pleural There is no evidence of pericardial effusion. Prior Study Comparison No significant change compared to prior study dated: 01/18/2021. Measurements 2D Linear Measurements IVSd: 1.22 0.6-0.9/0.6-1.0 cm LVIDd: 3.69 3.9-5.3/4.2-5.9 cm LVIDd Index: 2.31 2.4-3.2/2.2-3.1 cm/m2 LVIDs: 2.19 2.0-3.6 cm LVPWd: 1.22 0.7-1.1 cm Ao Root: 3.20 2.1-3.5 cm LA Diam: 3.40 2.7-3.8/3.0-4.0 cm LAIDs Index: 2.13 1.5-2.3 cm/m2 LV Mass: 187.31 67-162/88-224 g LV Mass Index: 117.07 43-95/49-115 g/m2 LVOT Diam: 2.00 3.0+(-)1.3 cm 2D Systolic Function EF 4C: 56.50 >55% EF 2C: 58.00 >55% EF BiP: 58.40 >55% Mitral Valve MV Pk E: 0.69 MV PK A: 0.99 MV Decel Time: 282.00 E/A: 0.70 E'Lateral: 5.00 E'Medial: 3.37 E/E' Med: 20.50 E/E' Lat: 13.80 PHT: 82.00 MVA PHT: 2.68 Decel Reynolds: 2.45 Aortic Valve AoV Pk Kuldip: 2.00 AoV Mn Kuldip: 1.19 AoV VTI: 0.48 AoV Pk Grad: 16.00 Aov Mn Grad: 7.00 YESIKA Cont.VTI: 1.35 LVOT LVOT Pk Kuldip: 0.82 LVOT Mn Kuldip: 0.55 LVOT VTI: 0.20 LVOT Pk Grad: 3.00 LVOT Mn Grad: 1.00 LVOT Diam: 2.00 LVOT Area: 3.14 Diastolic Function MV Pk E: 0.69 MV Pk A: 0.99 E/A: 0.70 E'Medial: 3.37 E/E' Med: 20.50 E' Laterial: 5.00 E/E' Lat: 13.80 Right Ventricle TAPSE (mm): 22.00 TVS' Kuldip: 12.00 Tricuspid Valve TR Pk Kuldip: 2.24 TR Pk Grad: 20.00 RA Press: 3.00 RVSP: 23.00 Great Vessels Aorta Ao Root-2D: 3.20 2.0-3.7 cm Ao Asc: 3.50 2.1-3.4 cm Pulmonary Valve PV Pk Kuldip: 0.95 Peak PV Grad: 4.00 Updated in Other Vendor System with Status of Final Clifton Vizcaino MD electronically signed on 05/12/2022 11:07:30 AM with status of Final
== END ==
LOC: HO.CARD 13:05
PROVIDERS: PCP Family Medicine; Visit Provider Family Medicine
DX: I35.0 Nonrheumatic aortic (valve) stenosis (principal)
CPT/HCPCS: 93306

== ENCOUNTER → 2022-05-12 09:55 | Outpatient (BNVA) | payer MEDICAID, SELFPAY | PROVIDERS: Visit Provider Surgery Vascular Surgery | DX: I73.9 Peripheral vascular disease, unspecified (principal) | CPT/HCPCS: 99212 ==

== ENCOUNTER 2022-07-25 08:14 | Outpatient (REF) | payer MEDICAID, SELFPAY | END 2022-07-25 08:15 | disposition home or self-care (01) | LOC: HO.HOSX 08:14 | PROVIDERS: Visit Provider Physician Assistant | DX: Z13.89 Encounter for screening for other disorder (principal) ==

== ENCOUNTER 2022-08-15 09:19 | Outpatient (REF) | payer MEDICAID, SELFPAY | END 2022-08-15 09:20 | disposition home or self-care (01) | LOC: HO.XRAY 09:19 | PROVIDERS: PCP Family Medicine; Visit Provider Physician Assistant | DX: Z13.89 Encounter for screening for other disorder (principal) ==

== ENCOUNTER 2022-08-22 11:10 | Outpatient (REF) | payer MEDICAID, SELFPAY ==
--- NOTE | ~2022-08-22 | XR_ITS ---
EXAMINATION: XR CHEST CLINICAL INFORMATION: TB screening COMPARISON: Chest radiograph 03/09/2022, chest CT 01/16/2021 TECHNIQUE: 2 views of the chest were obtained. FINDINGS: There is a 6 mm calcified granuloma in the left lower lobe which is similar to prior studies. Lungs are otherwise clear. Cardiomediastinal contours are unremarkable. No mediastinal or hilar lymphadenopathy is seen. No pleural effusion or pleural thickening. Structures of the chest wall are intact. There is a small hiatus hernia. XR/XR chest 2V IMPRESSION: There is a calcified left lower lobe granuloma which is stable from prior studies. There are no acute intrathoracic findings.
== END 2022-08-22 11:11 | disposition home or self-care (01) ==
LOC: HO.HHCX 11:10
PROVIDERS: Visit Provider Family Medicine
DX: Z11.1 Encounter for screening for respiratory tuberculosis (principal)
CPT/HCPCS: 71046

== ENCOUNTER 2022-08-26 10:34 | Outpatient (REF) | payer MEDICAID, SELFPAY ==
--- NOTE | ~2022-08-26 | XR_ITS ---
EXAMINATION: XR SHOULDER, LEFT CLINICAL INFORMATION: Left shoulder pain. COMPARISON: None available. TECHNIQUE: AP external rotation, Grashey, scapular Y, and axillary views of the left shoulder. FINDINGS: There is some calcification seen in the supraspinatus tendon. Minimal degenerative changes are seen at the AC joint. The bones and soft tissues are otherwise unremarkable. No fracture. Glenohumeral and acromioclavicular alignment is anatomic with. Glenohumeral joint appears unremarkable. XR/XR shoulder LT min 2V IMPRESSION: Calcification in the supraspinatus tendon and mild degenerative changes AC joint.
--- NOTE | ~2022-08-26 | US_ITS ---
EXAMINATION: US PELVIS CLINICAL INFORMATION: Abnormal uterus on CT scan of the abdomen and pelvis Postmenopausal COMPARISON: CT scan abdomen and pelvis 04/17/2022, 04/03/2022 and pelvic ultrasound 01/26/2018 TECHNIQUE: Ultrasound of the pelvis is performed using both transabdominal and transvaginal transducers along with Doppler. Transvaginal imaging is performed due to inadequate visualization transabdominally. FINDINGS: Uterus: The uterus is anteverted and measures 9.6 x 4.5 x 7.2 cm. Multiple uterine fibroids includin.3 x 0.9 x 1.1 cm subserosal fibroid in the anterior body of the uterus, previously measured 1.2 x 0.9 x 1.1. 1.4 x 1.1 x 1.2 cm fibroid in the left body, previously measured 1.4 x 1.0 x 0.9 cm. 1.3 x 1.0 x 1.2 cm subserosal fibroid in the left body previously measured 0.9 x 0.8 x 0.9 cm. The endometrial thickness is 0.4 mm. Adnexa: Both ovaries are visualized. There is normal color flow to the adnexa. There is no ovarian torsion. There is no pelvic ascites or fluid collection. Right ovary measures 2.3 x 1.3 x 2.5 cm. Volume 3.9 mL. Left ovary measures 2.4 x 1.6 x 1.5 cm. Volume 3.0 mL. US/US pelvic and transvaginal IMPRESSION: 1. Multiple uterine fibroids. 2. Normal ovaries.
== END 2022-08-26 10:35 | disposition home or self-care (01) ==
LOC: HO.US 10:34
PROVIDERS: PCP Family Medicine; Visit Provider Family Medicine
DX: R93.5 Abnormal findings on diagnostic imaging of other abdominal regions, including retroperitoneum (principal)
CPT/HCPCS: 73030; 76830; 76856

== ENCOUNTER 2022-09-06 18:59 | Outpatient (REF) | payer MEDICAID, SELFPAY ==
[2022-09-12 08:28] LABS: Codeine, Ur NEGATIVE; Hydrocodone, Ur NEGATIVE; Oxycodone, Ur NEGATIVE
[2022-09-12 08:30] LABS: Hydromorphone, Ur NEGATIVE; Morphine, Ur NEGATIVE; Oxymorphone, Ur NEGATIVE
[2022-09-12 08:31] LABS: Norhydrocodone, Ur NEGATIVE
[2022-09-12 11:27] LABS: Noroxycodone, Ur NEGATIVE
== END 2022-09-06 19:00 | disposition home or self-care (01) ==
LOC: HO.HHCLNP 18:59
PROVIDERS: Visit Provider Family Medicine
DX: M54.50 Low back pain, unspecified (principal); G89.29 Other chronic pain
CPT/HCPCS: 80364; 80365

== ENCOUNTER 2022-09-27 13:50 | Outpatient (REF) | payer MEDICAID, SELFPAY ==
--- NOTE | ~2022-09-27 | US_ITS ---
EXAMINATION: US OF KIDNEYS WITH RENAL ARTERY DOPPLER CLINICAL INFORMATION: Uncontrolled hypertension on multiple medications. COMPARISON: CT angiography abdomen, pelvis and runoff 04/23/2021. TECHNIQUE: Ultrasound of the kidneys was performed along with color-flow Doppler imaging and velocity measurements in the proximal mid and distal renal arteries. Aortic velocities were measured and renal/aortic ratios were calculated. Resistive indices were measured bilaterally. FINDINGS: The kidneys appeared normal with the right kidney measuring 10.8 x 5.2 x 5.4 cm and the left kidney measuring 10.2 x 5.1 x 5.5 cm. No renal masses, renal stones or hydronephrosis is seen. Renal cortical thickness appears normal. Velocity measurements in the proximal mid and distal renal arteries are mildly elevated bilaterally with a maximal velocity of 253 cm/s in the distal right renal artery and a maximal velocity of 202 cm/s in the proximal left renal artery. Velocity in the aorta is 80 cm/s, and the renal aortic ratio on the right is 3.2 and on the left is 2.5. Resistive indices were performed bilaterally which are all within normal limits except for some minimal nonspecific elevation of the mid value on the left at 0.82. US/US renal doppler IMPRESSION: Elevated velocities in the distal right renal artery and proximal left renal artery raising the question of renal artery stenosis. However, on the CT angiogram and runoff from 04/23/2021, no significant atherosclerotic disease was seen in the renal arteries, and the development of an interval significant stenosis seems doubtful. However, if clinical suspicion remains high, repeat CT angiography could be performed for further evaluation.
--- NOTE | ~2022-09-27 | US_ITS ---
EXAMINATION: US OF KIDNEYS WITH RENAL ARTERY DOPPLER CLINICAL INFORMATION: Uncontrolled hypertension on multiple medications. COMPARISON: CT angiography abdomen, pelvis and runoff 04/23/2021. TECHNIQUE: Ultrasound of the kidneys was performed along with color-flow Doppler imaging and velocity measurements in the proximal mid and distal renal arteries. Aortic velocities were measured and renal/aortic ratios were calculated. Resistive indices were measured bilaterally. FINDINGS: The kidneys appeared normal with the right kidney measuring 10.8 x 5.2 x 5.4 cm and the left kidney measuring 10.2 x 5.1 x 5.5 cm. No renal masses, renal stones or hydronephrosis is seen. Renal cortical thickness appears normal. Velocity measurements in the proximal mid and distal renal arteries are mildly elevated bilaterally with a maximal velocity of 253 cm/s in the distal right renal artery and a maximal velocity of 202 cm/s in the proximal left renal artery. Velocity in the aorta is 80 cm/s, and the renal aortic ratio on the right is 3.2 and on the left is 2.5. Resistive indices were performed bilaterally which are all within normal limits except for some minimal nonspecific elevation of the mid value on the left at 0.82. US/US renal BI IMPRESSION: Elevated velocities in the distal right renal artery and proximal left renal artery raising the question of renal artery stenosis. However, on the CT angiogram and runoff from 04/23/2021, no significant atherosclerotic disease was seen in the renal arteries, and the development of an interval significant stenosis seems doubtful. However, if clinical suspicion remains high, repeat CT angiography could be performed for further evaluation.
--- NOTE | ~2022-09-27 | US_ITS ---
EXAMINATION: US EXTRACRANIAL CAROTID DUPLEX, BILATERAL CLINICAL INFORMATION: Dizziness and giddiness COMPARISON: 11/12/2013 -report only TECHNIQUE: Real-time ultrasound and Doppler techniques (integrating B-mode 2-D vascular images, Doppler spectral analysis and color-flow Doppler imaging) were utilized to interrogate the extracranial carotid arteries, the vertebral arteries and proximal subclavian arteries bilaterally. The degree of stenosis is determined by criteria similar to NASCET. FINDINGS: Right Side: 1. There is marked atherosclerotic plaque seen in the bifurcation/proximal ICA region. 2. The common carotid artery PSV proximally is 72 cm/s and distally 115 cm/s. 3. The proximal internal carotid artery velocities are 653 cm/s systolic and 233 cm/s diastolic. The 2013, these values were reported to be normal. 4. The proximal external carotid artery PSV is 265 cm/s. 5. The vertebral artery shows antegrade flow. 6. The subclavian artery waveforms are normal. Left Side: 1. There is moderate atherosclerotic plaque seen in the bifurcation/proximal ICA region. 2. The common carotid artery PSV proximally is 103 cm/s and distally 128 cm/s. 3. The proximal internal carotid artery velocities are 253 cm/s systolic and 102 cm/s diastolic. He 2013, these values are reported to be normal 4. The proximal external carotid artery PSV is 265 cm/s. 5. The vertebral artery shows antegrade flow. 6. The subclavian artery waveforms are normal. US/US carotid duplex BI IMPRESSION: 1. RIGHT: Severe, hemodynamically significant stenosis of the proximal right internal carotid artery corresponding to an 80-99% stenosis by velocity criteria. There is also a marked right ECA stenosis. 2. LEFT: Moderate, hemodynamically significant stenosis of the proximal left internal carotid artery corresponding to a 50-79% stenosis by velocity criteria. There is also a marked left ICA stenosis 3. There has been a marked interval change when compared to the 2013 study with now a severe 80-99% stenosis on the right and a 50-79% stenosis on the left, previously with normal velocities.
== END 2022-09-27 13:51 | disposition home or self-care (01) ==
LOC: HO.US 13:50
PROVIDERS: PCP Family Medicine; Visit Provider Family Medicine
DX: R42 Dizziness and giddiness (principal); I10 Essential (primary) hypertension; Z79.899 Other long term (current) drug therapy
CPT/HCPCS: 76775; 93880; 93975

== ENCOUNTER 2022-10-03 10:11 | Outpatient (AMB) | payer MEDICAID, SELFPAY ==
--- NOTE | 2022-10-03 10:12 | A.OFFVIS_ITS ---
Intake Intake Visit Reasons: F/up T2DM w/Mild Nonproliferative retinopathy Intake Note: T2DM w/mild Nonproliferative retinopathy follow up Button Spindler Required: No Allergies latex [LATEX] Allergy (Unknown, Verified 10/03/22 12:01) RASH naproxen [From NAPROSYN] Allergy (Unknown, Verified 10/03/22 12:01) TACHYCARDIA Medication List - Last Reconciled 10/03/22 by Bhavani Wilson, acetaminophen (Tylenol) 650 mg (2 x 325 mg) PO Q6H PRN acetaminophen ER (Arthritis Pain Relief (acetaminophen) ER) 650 mg PO Q8H PRN albuterol sulfate 2.5 mg (3 mL) inhalation Q4H PRN amitriptyline 1 tab PO BEDTIME amlodipine 10 mg PO BEDTIME amoxicillin-pot clavulanate 875-125 mg 1 tab PO BID aspirin (Adult Low Dose Aspirin) 81 mg PO DAILY atorvastatin (Lipitor) 80 mg PO BEDTIME blood sugar diagnostic (FreeStyle Lite Strips) As directed carvedilol (Coreg) 25 mg PO BID cefuroxime axetil 250 mg PO BID 7 days clonidine 1 patch transdermal QWEEK clopidogrel (Plavix) 75 mg PO DAILY clotrimazole 1% 1 appl topical BID cyclobenzaprine 10 mg PO Q8H diphenhydramine HCl (Benadryl) 25 mg PO TID PRN docusate sodium (Colace) 100 mg PO BID PRN dulaglutide (Trulicity) 0.75 mg (0.5 mL) subcut QWEEK 30 days escitalopram oxalate (Lexapro) 20 mg PO DAILY ferrous sulfate 325 mg PO BID fluticasone propionate 50 mcg/actuation 2 sprays intranasal DAILY fluticasone propionate 110 mcg/actuation (Flovent HFA) 2 puffs inhalation BID gabapentin 800 mg PO TID hydralazine 50 mg PO TID hydrochlorothiazide 25 mg PO DAILY insulin degludec (Tresiba FlexTouch U-100 insulin) 5 units subcut DAILY insulin lispro protamin-lispro 100 unit/mL (50-50) (Humalog Mix 50-50 Insuln U- 100) 6 units (0.06 mL) subcut QAM lancets (TRUEplus Lancets) 4x daily lidocaine 5% (Lidoderm) 1 patch topical DAILY lisinopril 40 mg PO DAILY metformin 1,000 mg PO BID metoclopramide HCl (Reglan) 10 mg PO Q6H PRN mirtazapine 45 mg PO BEDTIME multivitamin 1 tab PO DAILY oxycodone-acetaminophen 7.5-325 mg 1 tab PO Q6H PRN pantoprazole (Protonix) 40 mg PO BID@0630,1630 pioglitazone 15 mg PO DAILY 30 days polyethylene glycol 3350 (Miralax) 17 grams PO DAILY tramadol 50 mg PO BID PRN HPI HPI Comments History of Present Illness Details 61 YO F with PMHx T2DM who is seen in consultation for T2DM at the request of PCP. Initially diagnosed with T2DM in 2002. Was initially started on treatment with Metformin. Current regimen Metformin 1000 mg PO BID, pioglitazone 45 mg PO daily, Tresiba 10 units qHS and a Humalog sliding scale. She reports not using the insulin at all. She is also not using the metformin. Checking her sugars intermittently. Reports low sugars once in the distant past. Had symptoms. Treats lows with juice. Most recent A1C 9.2%. Family history of T2DM in her Mother. Has eyes checked yearly, last eye exam 2019, has retinopathy. Has neuropathy, last foot exam 06/25/2020, has an upcoming appointment with podiatry. Unknown if nephropathy, on Lisinopril 40 mg PO daily. No recent UAC on file. Has HLD, on Atorvastatin 80 mg PO daily. No recent LDL on file. Has CAD with a recent CABG. Diet: Does not watch her carbs. Weight: Stable Has not had diabetes education. Labs: Laboratory Tests 06/19/20 10:43 Creatinine 0.73 Estimated GFR > 60 PFSH Medical History Arthritis Asthma CAD (coronary artery disease) Cyst (solitary) of breast Diabetes H. pylori infection HLD (hyperlipidemia) HTN (hypertension) HTN (hypertension) Kidney calculi T2DM (type 2 diabetes mellitus) Vitamin D deficiency Surgical History History of breast surgery History of cardiac cath History of esophagogastroduodenoscopy (EGD) Hx of colonoscopy Family History Mother Diabetes Liver cancer Social History Household Members: Children and Friend(s) Housing: Apartment Do you presently have visiting nurse or other home services: No Alcohol intake: never Patient Tobacco Use Status: Current everyday Tobacco user Tobacco use type: Cigarette Cigarettes Per Day: 2 Years Smoked: 40 +/- e-Cigarette/Vaping Use: Never Used Second Hand Smoke Exposure: No service: No Current occupational status: unemployed and disabled Assessment & Plan Assessment & Plan (1) T2DM (type 2 diabetes mellitus): Code(s): E11.9 - Type 2 diabetes mellitus without complications Qualifiers: Diabetes mellitus shelter insulin use: without shelter use Diabetes mellitus complication status: with ophthalmic complications Diabetes mellitus complication detail: with diabetic retinopathy Diabetic retinopathy severity: with mild nonproliferative retinopathy Diabetes mellitus macular edema: with macular edema Laterality: bilateral Qualified Code(s): E11.3213 - Type 2 diabetes mellitus with mild nonproliferative diabetic retinopathy with macular edema, bilateral Plan: Patient with T2DM, poorly controlled. She is noncompliant with her medications. I have spent a great deal of time educating her on the dangers of poorly controlled Diabetes, including amputations, renal failure, ASCVD and stroke. I advised her to check her sugars 4x daily before every meal and before bed, and also use her medications as prescribed: Continue with Metformin 1000 mg PO BID Decrease Pioglitazone to 30 mg PO daily Start Trulicity 0.75 mg once a week Continue with Tresiba 10 units daily She will then bring her meter for review. All of her questions were answered today. She is in agreement with this plan of care. The importance of adherence to prescribed regimen was discussed with the patient including checking finger sticks 3-4 times per day, using medication as prescribed, monitoring for hypoglycemia and treating any episode of hypoglycemia according to the rule of 15's. The signs and symptoms of hypoglycemia were reviewed in detail, as well as the rule of 15's to treat. Proper foot care was also discussed with the patient, and the importance of yearly dilated eye exam. The patient was asked to have copy of eye exam sent to our office for review. I spent 20 minutes in reviewing the record, seeing the patient and documenting in the medical record, including 5 minutes on the phone with the Patient. (2) HLD (hyperlipidemia): Code(s): E78.5 - Hyperlipidemia, unspecified Qualifiers: Hyperlipidemia type: unspecified Qualified Code(s): E78.5 - Hyperlipidemia, unspecified Plan: Remains on Atorvastatin 80 mg PO daily. Recent had CABG. Goal LDL <70. (3) HTN (hypertension): Code(s): I10 - Essential (primary) hypertension Plan: Remains on Lisinopril. Will continue. Telehealth Telehealth Location of provider rendering services: practice address Location of patient: address on file Patient Identification confirmed using: Name, : Yes Telehealth method: voice only Patient verbally consented to treatment: Yes Patient verbally consented to billing insurance company: Yes Patient informed of any privacy concerns related to visit: Yes Coding Level of Care Code Tele Est Pt Level 3 (99107) Diagnoses T2DM (type 2 diabetes mellitus) E11.3213 Diabetes mellitus microsoft dynamics ax consultant insulin use: without microsoft dynamics ax consultant use Diabetes mellitus complication status: with ophthalmic complications Diabetes mellitus complication detail: with diabetic retinopathy Diabetic retinopathy severity: with mild nonproliferative retinopathy Diabetes mellitus macular edema: with macular edema Laterality: bilateral HLD (hyperlipidemia) E78.5 Hyperlipidemia type: unspecified HTN (hypertension) I10
== END 2022-10-03 14:40 | disposition home or self-care (01) ==
LOC: HO.ENCR 10:11
PROVIDERS: PCP Family Medicine; Visit Provider Internal Medicine
DX: E11.3213 Type 2 diabetes mellitus with mild nonproliferative diabetic retinopathy with macular edema, bilateral (principal); E78.5 Hyperlipidemia, unspecified; I10 Essential (primary) hypertension
CPT/HCPCS: 99213

== ENCOUNTER → 2022-10-03 10:11 | Outpatient (BNVA) | payer MEDICAID, SELFPAY | PROVIDERS: PCP Family Medicine; Visit Provider Internal Medicine ==

== ENCOUNTER 2022-10-18 13:30 | Outpatient (REF) | payer MEDICAID, SELFPAY ==
--- NOTE | ~2022-10-18 | US_ITS ---
EXAMINATION: ANKLE-BRACHIAL INDICES SINGLE LEVEL PULSE VOLUME RECORDING ARTERIAL DUPLEX BILATERAL LEGS CLINICAL INFORMATION: Peripheral vascular disease. COMPARISON: 03/24/22. TECHNIQUE: Ankle-brachial indices and PVR at the ankle were obtained. Duplex Doppler of the bilateral lower extremity arterial systems was performed. FINDINGS: RIGHT: Ankle-brachial index: Unable to tolerate on the right lower extremity. Right arm brachial pressure was greater than 200 consistent with calcified arteries. PVR: Abnormal Common femoral: PSV 150 cm/s. Monophasic waveform. Deep femoral: PSV 202 cm/s. Monophasic waveform. Proximal superficial femoral: Chronically occluded. Mid superficial femoral: Chronically occluded. Distal superficial femoral: PSV 64 cm/s. Monophasic waveform. Popliteal: PSV 67 cm/s. Monophasic waveform. Posterior tibial: PSV 57 cm/s. Monophasic waveform. Peroneal: PSV 23 cm/s. Monophasic waveform. LEFT: Ankle-brachial index: 0.81 (please note the machine report indicates an BEVERLEY of 0.71 using the right arm brachial blood pressure of 200 mmHg, but as above this indicates a noncompressible vessel. Using the left arm brachial blood pressure of 175, the BEVERLEY 0.81). PVR: Mildly abnormal Common femoral: PSV 123 cm/s. Biphasic waveform. Deep femoral: Not visualized. Proximal superficial femoral: Occluded. Mid superficial femoral: Occluded. Distal superficial femoral: Occluded. Femoral bypass graft: [place] inflow: PSV 123 cm/s. Biphasic waveform. Proximal anastomosis: PSV 150 cm/s. Biphasic waveform. Proximal graft: PSV 88 cm/s. Biphasic waveform. Mid graft: PSV 48 cm/s. Biphasic waveform. Distal graft: PSV 80 cm/s. Biphasic waveform. Distal anastomosis: PSV 31 cm/s. Biphasic waveform. [place] outflow: PSV 164 cm/s. Biphasic waveform. Popliteal: PSV 164 cm/s. Biphasic waveform. Posterior tibial: PSV 65 cm/s. Biphasic waveform. Peroneal: Not visible. US/US BEVERLEY complete IMPRESSION: Right: BEVERLEY unobtainable as the patient was not able to tolerate the compression cuff at the ankle. The PVR waveform is abnormal. Chronic occlusion of the proximal and mid SFA. Monophasic waveforms throughout the right lower extremity. Left: Mild to moderate peripheral arterial disease by BEVERLEY and PVR. Chronically occluded SFA. Patent bypass graft. Improved velocities at the proximal and distal anastomoses. Biphasic waveforms throughout the left lower extremity.
--- NOTE | ~2022-10-18 | US_ITS ---
EXAMINATION: ANKLE-BRACHIAL INDICES SINGLE LEVEL PULSE VOLUME RECORDING ARTERIAL DUPLEX BILATERAL LEGS CLINICAL INFORMATION: Peripheral vascular disease. COMPARISON: 03/24/22. TECHNIQUE: Ankle-brachial indices and PVR at the ankle were obtained. Duplex Doppler of the bilateral lower extremity arterial systems was performed. FINDINGS: RIGHT: Ankle-brachial index: Unable to tolerate on the right lower extremity. Right arm brachial pressure was greater than 200 consistent with calcified arteries. PVR: Abnormal Common femoral: PSV 150 cm/s. Monophasic waveform. Deep femoral: PSV 202 cm/s. Monophasic waveform. Proximal superficial femoral: Chronically occluded. Mid superficial femoral: Chronically occluded. Distal superficial femoral: PSV 64 cm/s. Monophasic waveform. Popliteal: PSV 67 cm/s. Monophasic waveform. Posterior tibial: PSV 57 cm/s. Monophasic waveform. Peroneal: PSV 23 cm/s. Monophasic waveform. LEFT: Ankle-brachial index: 0.81 (please note the machine report indicates an BEVERLEY of 0.71 using the right arm brachial blood pressure of 200 mmHg, but as above this indicates a noncompressible vessel. Using the left arm brachial blood pressure of 175, the BEVERLEY 0.81). PVR: Mildly abnormal Common femoral: PSV 123 cm/s. Biphasic waveform. Deep femoral: Not visualized. Proximal superficial femoral: Occluded. Mid superficial femoral: Occluded. Distal superficial femoral: Occluded. Femoral bypass graft: [place] inflow: PSV 123 cm/s. Biphasic waveform. Proximal anastomosis: PSV 150 cm/s. Biphasic waveform. Proximal graft: PSV 88 cm/s. Biphasic waveform. Mid graft: PSV 48 cm/s. Biphasic waveform. Distal graft: PSV 80 cm/s. Biphasic waveform. Distal anastomosis: PSV 31 cm/s. Biphasic waveform. [place] outflow: PSV 164 cm/s. Biphasic waveform. Popliteal: PSV 164 cm/s. Biphasic waveform. Posterior tibial: PSV 65 cm/s. Biphasic waveform. Peroneal: Not visible. US/US arterial duplex LE BI IMPRESSION: Right: BEVERLEY unobtainable as the patient was not able to tolerate the compression cuff at the ankle. The PVR waveform is abnormal. Chronic occlusion of the proximal and mid SFA. Monophasic waveforms throughout the right lower extremity. Left: Mild to moderate peripheral arterial disease by BEVERLEY and PVR. Chronically occluded SFA. Patent bypass graft. Improved velocities at the proximal and distal anastomoses. Biphasic waveforms throughout the left lower extremity.
== END 2022-10-18 13:31 | disposition home or self-care (01) ==
LOC: HO.US 13:30
PROVIDERS: Visit Provider Surgery Vascular Surgery
DX: I70.213 Atherosclerosis of native arteries of extremities with intermittent claudication, bilateral legs (principal)
CPT/HCPCS: 93923; 93925

== ENCOUNTER 2022-10-25 14:57 | Outpatient (AMB) | payer MEDICAID, SELFPAY ==
--- NOTE | 2022-10-25 14:59 | MHC.OFFVIS ---
Intake Vital Signs 10/25/22 15:00 10/25/22 15:05 Height 5 ft Weight 145 lb BMI 28.3 BP 174/82 H 180/86 H Blood Pressure Location Lt brachial Rt brachial Position Sitting Sitting Pulse 86 Pulse Source Pulse Oximeter Pulse Oximetry (%) 97 Oxygen Delivery Method Room Air Intake Visit Reasons: 6 month f/u s/p arterial US 10/18/22 Intake Note: Pt presents to the office today for a 6 month follow up s/p arterialUS 10/18/22. Pt states she is doing well but states she has pain in her left leg. Pt states she has swelling in her left leg when she walks for a long period of time. Pt states she gets tingling in her left foot, mainly in her heel area. Patients daugter states she does not use compression stockings. Accompanied by: Daughter Allergies latex [LATEX] Allergy (Unknown, Verified 10/25/22 15:01) RASH naproxen [From NAPROSYN] Allergy (Unknown, Verified 10/25/22 15:01) TACHYCARDIA HPI 6 month f/u s/p arterial US 10/18/22 HPI Details Pleasant 61-year-old female presents for follow-up evaluation regarding peripheral vascular disease. Of note she had been seen on by her primary care and there was concerns of a dizzy episode. She had undergone carotid ultrasound as well. Of note since that time her dizzy episodes have resolved. She now presents for follow-up evaluation with 2 noninvasive tests. Also of note she continues to smoke about 2 packs per day. Upon discussion with her she can not ambulate about 5 minutes with no significant difficulty. She notes that she can climb a flight of stairs but the leg cramping happens after about approximately a flight. She denies any shortness of breath. [facility] Medical History HTN (hypertension) Vitamin D deficiency HLD (hyperlipidemia) T2DM (type 2 diabetes mellitus) H. pylori infection CAD (coronary artery disease) Cyst (solitary) of breast Kidney calculi Arthritis Asthma HTN (hypertension) Diabetes Surgical History History of esophagogastroduodenoscopy (EGD) Hx of colonoscopy History of breast surgery History of cardiac cath Family History Mother Diabetes Liver cancer Social History Household Members: Children and Friend(s) Housing: Apartment Do you presently have visiting nurse or other home services: No Alcohol intake: never Patient Tobacco Use Status: Current everyday Tobacco user Tobacco use type: Cigarette Cigarettes Per Day: 2 Years Smoked: 40 +/- e-Cigarette/Vaping Use: Never Used Second Hand Smoke Exposure: No service: No Current occupational status: unemployed and disabled Review of Systems Const All systems reviewed & are unremarkable except as noted in HPI and below Reports no additional complaints ENT Reports Normal hearing present Card Denies chest pain, Denies chest pain at rest, Denies chest pain with activity and Denies pedal edema Resp Denies cough GI Denies abdominal pain Musc Denies abnormal gait, Denies muscle cramps and Denies radiating pain into limb Skin/Breast Denies skin ulcer and Denies wounds Neuro Reports Normal hearing present and Denies abnormal gait Psych Reports no additional complaints Physical Exam Vital Signs: Last Vital Signs Pulse 86 10/25/22 15:00 BP 180/86 H 10/25/22 15:05 Pulse Ox 97 10/25/22 15:00 Oxygen Delivery Method Room Air 10/25/22 15:00 BMI result Body Mass Index 28.3 Const General: cooperative, healthy appearing and comfortable Orientation/consciousness: oriented to person, oriented to place and oriented to time HEENT Head: Yes normal to inspection Neck Neck: Yes normal visual inspection Carotids: no bruits Chest Chest palpation & inspection: normal inspection of the chest Resp Effort & Inspection: normal respiratory effort and able to speak in complete sentences Auscultation: clear to auscultation bilaterally, no crackles, no rales, no rhonchi and no wheezes Cardio Other: Bilateral DP signals Rate: regular rate Rhythm: regular rhythm Heart sounds: S1 normal heart sound present and S2 normal heart sound present Bruits: no carotid bruits Peripheral pulses: Peripheral pulses 2+ throughout GI Inspection: Yes normal to inspection Skin Wounds: no wounds Hair: normal Neuro General: oriented to person, oriented to place and oriented to time Cranial nerves: Yes CN's II-XII intact bilaterally and Yes Normal hearing present Cognition (Neuro): normal cognition Motor exam (neuro): 5/5 motor strength present throughout Extrem Other: venous exam: No significant superficial varicosities or spider telangiectasias, minimal edema General: No clubbing, No cyanosis and No edema Psych Appearance: grossly normal Mental Status: mental status grossly normal Speech and movement: Normal speech and movement present Results Reviewed Results Reviewed: Noninvasive arterial testing dated 10/18/2022 demonstrates left BEVERLEY of 0. Eight 1 and monophasic waveforms on the right with unobtainable ABIs. Written report and images were reviewed. Carotid ultrasound dated 09/27/2022 demonstrates right-sided 80-99% stenosis with peak systolic of 653 and on the left side 50-79% stenosis. Written report and images were reviewed. Assessment & Plan Assessment & Plan (1) PAD (peripheral artery disease): Comment: 05/18/2020 - left fem-pop bypass 12/02/2020 - left angioplasty profundus femoris and popliteal inclusive is of distal anastomosis 05/17/2021 - right common iliac stent 04/13/2022 diagnostic angiogram Code(s): I73.9 - Peripheral vascular disease, unspecified Plan: In short patient has stable claudication. I did review the pathophysiology of peripheral vascular disease with the patient. In addition we did discuss routine conservative measures including a healthy diet and the importance of exercise and ambulation. We did discuss risk factor modification. The patient will continue to to follow-up with surveillance follow-up in approximately 6 months. Thank you for allowing us to participate in this patient's care. If there are any questions or concerns please do not hesitate to contact us. We will workup her carotid disease and then order testing. (2) Bilateral carotid artery stenosis: Code(s): I65.23 - Occlusion and stenosis of bilateral carotid arteries Plan: In short the concern is that she has high-grade right carotid stenosis on ultrasound. We have discussed routine risk factor modification including smoking cessation. We will obtain CT angiogram of the carotids. She will follow up with us after testing. Thank you for allowing us to assist in her care. If there are questions or concerns please do not hesitate to contact us. Orders: Orders Creatinine Today I65.23 - Occlusion and stenosis of bilateral carotid arteries CT angio neck 1 Day I65.23 - Occlusion and stenosis of bilateral carotid arteries Blood Urea Nitrogen Today I65.23 - Occlusion and stenosis of bilateral carotid arteries Coding Level of Care Code Est Pt Level 4 (93080) Diagnoses PAD (peripheral artery disease) I73.9 Bilateral carotid artery stenosis I65.23
[2022-10-25 15:00] VITALS: BP 174/82; PULSE 86; O2SAT 97; BMI 28.3
[2022-10-25 15:05] VITALS: BP 180/86
== END 2022-10-25 15:29 | disposition home or self-care (01) ==
PROVIDERS: PCP Family Medicine; Visit Provider Surgery Vascular Surgery
DX: I73.9 Peripheral vascular disease, unspecified (principal); I65.23 Occlusion and stenosis of bilateral carotid arteries; Z95.820 Peripheral vascular angioplasty status with implants and grafts
CPT/HCPCS: 99214

== ENCOUNTER → 2022-10-25 14:57 | Outpatient (BNVA) | payer MEDICAID, SELFPAY | PROVIDERS: PCP Family Medicine; Visit Provider Surgery Vascular Surgery | DX: I73.9 Peripheral vascular disease, unspecified (principal); I65.23 Occlusion and stenosis of bilateral carotid arteries | CPT/HCPCS: 99212 ==

== ENCOUNTER 2022-10-27 10:52 | Outpatient (REF) | payer MEDICAID, SELFPAY ==
--- NOTE | ~2022-10-27 | CT_ITS ---
EXAMINATION: CT ANGIOGRAM NECK CLINICAL INFORMATION: High-grade right carotid stenosis on ultrasound COMPARISON: CTA head and neck 11/02/2013 TECHNIQUE: The degree of stenosis determined by NASCET criteria. This CT examination was performed using dose optimization techniques as appropriate, variously including the following: *Automated exposure control *Adjustment of mA and/or kV according to patient size (this includes techniques or standardized protocols for targeted exams where dose is matched to indication/reason for exam; i.e. extremities or head) *Use of iterative reconstruction technique DLP: 267 mGy-cm FINDINGS: CT Neck: The thyroid gland and remaining cervical soft tissues are within normal limits. No significant abnormalities of the cervical spine. The patient is nearly edentulous with carious remaining mandibular teeth and periapical lucencies involving the right mandibular incisors. CT Upper Chest: The visualized lung apices and upper mediastinum are within normal limits. Neck CTA: Aortic Arch: Normal contour and caliber. Classic 3 vessel branching pattern of the aortic arch. Great Vessel Origins: No significant stenosis of the branch origins. There is mild narrowing of the left subclavian artery origin related to calcified atherosclerotic plaque. Right Common Carotid Artery: No high-grade stenosis or occlusion. There is mild narrowing of the mid to distal right common carotid artery related to fibrofatty plaque Cervical Right Internal Carotid Artery: Calcified and noncalcified atherosclerotic disease involving the right carotid bifurcation proximal right internal carotid artery with greater than 70% stenosis of the right ICA origin, progressed compared to CTA from 2013. The remainder of the cervical course of the right ICA is patent. Left Common Carotid Artery: No focal stenosis or occlusion. Cervical Left Internal Carotid Artery: Calcified and noncalcified atherosclerotic plaque involving the left carotid bifurcation and proximal left internal carotid artery with up to 50% stenosis of the proximal left ICA. Cervical Right Vertebral Artery: No focal stenosis or occlusion. Cervical Left Vertebral Artery: Dominant. No focal stenosis or occlusion. There is multifocal intracranial atherosclerotic disease with progressive moderate to high-grade stenosis of the petrous right ICA and similar appearance of moderate atherosclerotic narrowing of the cavernous ICAs and right supraclinoid ICA. No other high-grade stenosis or large vessel occlusion. Right P-comm origin infundibulum. CT/CT angio neck IMPRESSION: 1. Progressive greater than 70-90% stenosis of the right ICA origin related to atherosclerotic disease compared to CTA from 2013. There is also worsening atherosclerotic moderate to high-grade narrowing of the intracranial petrous segment of the right ICA. 2. Approximately 50% stenosis of the proximal left ICA related to atherosclerotic plaque, progressed compared to CTA from 2014. 3. Otherwise similar appearance of multifocal intracranial atherosclerotic disease including moderate stenoses of the cavernous and right supraclinoid ICAs.
[2022-10-27 11:34] LABS: Blood Urea Nitrogen 11 mg/dL (9-16); Estimated Glomerular Filt Rate 54
[2022-10-27] MEDS: iohexoL 350 MG/ML 100 ML INFUS..BTL IV (15:23)
== END 2022-10-27 10:53 | disposition home or self-care (01) ==
LOC: HO.CT 10:52
PROVIDERS: PCP Family Medicine; Visit Provider Surgery Vascular Surgery
DX: I65.23 Occlusion and stenosis of bilateral carotid arteries (principal)
CPT/HCPCS: 36415; 70498; 82565; 84520; Q9967

== ENCOUNTER 2022-11-01 10:43 | Outpatient (AMB) | payer MEDICAID, SELFPAY ==
[2022-11-01 10:58] VITALS: BP 132/82; BMI 28.3
--- NOTE | 2022-11-01 10:58 | A.OFFVIS_ITS ---
Intake Vital Signs 11/01/22 10:58 11/01/22 11:02 Height 5 ft Weight 145 lb BMI 28.3 BP 132/82 158/82 H Blood Pressure Location Lt brachial Rt brachial Position Sitting Sitting Intake Visit Reasons: 1 wk follow up CTA Neck 10/27/22 Intake Note: 1 week follow up CTA Neck 10/27/22 for carotid stenosis Accompanied by: Daughter Allergies latex [LATEX] Allergy (Unknown, Verified 11/01/22 11:00) RASH naproxen [From NAPROSYN] Allergy (Unknown, Verified 11/01/22 11:00) TACHYCARDIA HPI 1 wk follow up CTA Neck 10/27/22 HPI Details Very pleasant 61-year-old female well known to us from prior history of peripheral vascular disease had been worked up by her primary care regarding carotid disease. She has been asymptomatic but was noted to have high-grade carotid stenosis. She subsequently underwent CT angiogram and now presents for follow-up. She has had no interval issues. Of note she is able to climb a flight of stairs without any difficulty [facility] Medical History HTN (hypertension) Vitamin D deficiency HLD (hyperlipidemia) T2DM (type 2 diabetes mellitus) H. pylori infection CAD (coronary artery disease) Cyst (solitary) of breast Kidney calculi Arthritis Asthma HTN (hypertension) Diabetes Surgical History History of esophagogastroduodenoscopy (EGD) Hx of colonoscopy History of breast surgery History of cardiac cath Family History Mother Diabetes Liver cancer Social History Household Members: Children and Friend(s) Housing: Apartment Do you presently have visiting nurse or other home services: No Alcohol intake: never Patient Tobacco Use Status: Current everyday Tobacco user Tobacco use type: Cigarette Cigarettes Per Day: 2 Years Smoked: 40 +/- e-Cigarette/Vaping Use: Never Used Second Hand Smoke Exposure: No service: No Current occupational status: unemployed and disabled Review of Systems Const All systems reviewed & are unremarkable except as noted in HPI and below Reports no additional complaints ENT Reports Normal hearing present Card Denies chest pain, Denies chest pain at rest, Denies chest pain with activity and Denies pedal edema Resp Denies cough GI Denies abdominal pain Musc Denies abnormal gait, Denies muscle cramps and Denies radiating pain into limb Skin/Breast Denies skin ulcer and Denies wounds Neuro Reports Normal hearing present and Denies abnormal gait Psych Reports no additional complaints Physical Exam Vital Signs: Last Vital Signs BP 158/82 H 11/01/22 11:02 BMI result Body Mass Index 28.3 Const General: cooperative, healthy appearing and comfortable Orientation/consciousness: oriented to person, oriented to place and oriented to time HEENT Head: Yes normal to inspection Neck Neck: Yes normal visual inspection Carotids: no bruits Chest Chest palpation & inspection: normal inspection of the chest Resp Effort & Inspection: normal respiratory effort and able to speak in complete sentences Auscultation: clear to auscultation bilaterally, no crackles, no rales, no rhonc hi and no wheezes Cardio Other: Bilateral DP signal Rate: regular rate Rhythm: regular rhythm Heart sounds: S1 normal heart sound present and S2 normal heart sound present Bruits: no carotid bruits Peripheral pulses: Peripheral pulses 2+ throughout GI Inspection: Yes normal to inspection Skin Wounds: no wounds Hair: normal Neuro General: oriented to person, oriented to place and oriented to time Cranial nerves: Yes CN's II-XII intact bilaterally and Yes Normal hearing present Cognition (Neuro): normal cognition Motor exam (neuro): 5/5 motor strength present throughout Extrem Other: venous exam: No significant superficial varicosities or spider telangiectasias, minimal edema General: No clubbing, No cyanosis and No edema Psych Appearance: grossly normal Mental Status: mental status grossly normal Speech and movement: Normal speech and movement present Results Reviewed Results Reviewed: CT angiogram dated 10/27/2022 demonstrates the 70-90% right carotid stenosis left side 50%. Written report and images were reviewed. Assessment & Plan Assessment & Plan (1) Bilateral carotid artery stenosis: Code(s): I65.23 - Occlusion and stenosis of bilateral carotid arteries Plan: In short patient has high-grade right carotid stenosis. Patient will require right carotid endarterectomy. Risks benefits complications including but not limited to bleeding infection stroke and were discussed in detail with the patient. She understood and consented. She would like to move forward. She will require cardiac risk stratification. Thank you for allowing us to assist in her care. If there are any questions or concerns please do not hesitate to contact us. (2) PAD (peripheral artery disease): Comment: 05/18/2020 - left fem-pop bypass 12/02/2020 - left angioplasty profundus femoris and popliteal inclusive is of distal anastomosis 05/17/2021 - right common iliac stent 04/13/2022 diagnostic angiogram Code(s): I73.9 - Peripheral vascular disease, unspecified (3) CAD (coronary artery disease): Comment: cath 2016, med managed Code(s): I25.10 - Atherosclerotic heart disease of [place] coronary artery without angina pectoris Coding Level of Care Code Est Pt Level 4 (27790) Diagnoses Bilateral carotid artery stenosis I65.23 PAD (peripheral artery disease) I73.9 CAD (coronary artery disease) I25.10
[2022-11-01 11:02] VITALS: BP 158/82
== END 2022-11-01 11:31 | disposition home or self-care (01) ==
PROVIDERS: PCP Family Medicine; Visit Provider Surgery Vascular Surgery
DX: I65.23 Occlusion and stenosis of bilateral carotid arteries (principal); I73.9 Peripheral vascular disease, unspecified; I25.10 Atherosclerotic heart disease of native coronary artery without angina pectoris; Z95.820 Peripheral vascular angioplasty status with implants and grafts
CPT/HCPCS: 99214

== ENCOUNTER → 2022-11-01 10:43 | Outpatient (BNVA) | payer MEDICAID, SELFPAY | PROVIDERS: PCP Family Medicine; Visit Provider Surgery Vascular Surgery | DX: I65.23 Occlusion and stenosis of bilateral carotid arteries (principal); I73.9 Peripheral vascular disease, unspecified; I25.10 Atherosclerotic heart disease of native coronary artery without angina pectoris | CPT/HCPCS: 99212 ==

== ENCOUNTER 2022-11-07 09:55 | Outpatient (AMB) | payer MEDICAID, SELFPAY ==
[2022-11-07 09:58] VITALS: BP 142/82; PULSE 72; BMI 27.1
--- NOTE | 2022-11-07 09:58 | A.OFFVIS_ITS ---
Intake Vital Signs 11/07/22 09:58 Height 5 ft Weight 138 lb 14.259 oz BMI 27.1 BP 142/82 H Blood Pressure Location Lt brachial Position Sitting Pulse 72 Intake Visit Reasons: Preop- Margo- carotid endarterectomu 11/30 Intake Note: Pre-op clearance carotid surgery 11/30 feeling good Art Appraiser Required: Yes Art Appraiser Name: daugther signed Medical Office Receptionist: Medical Office Receptionist Present Accompanied by: Daughter Allergies latex [LATEX] Allergy (Unknown, Verified 11/01/22 11:00) RASH naproxen [From NAPROSYN] Allergy (Unknown, Verified 11/01/22 11:00) TACHYCARDIA Medication List - Last Reconciled 11/07/22 by Ghanshyam Daniel MD acetaminophen (Tylenol) 650 mg (2 x 325 mg) PO Q6H PRN acetaminophen ER (Arthritis Pain Relief (acetaminophen) ER) 650 mg PO Q8H PRN albuterol sulfate 2.5 mg (3 mL) inhalation Q4H PRN amitriptyline 50 mg PO BEDTIME amlodipine 10 mg PO BEDTIME aspirin (Adult Low Dose Aspirin) 81 mg PO DAILY atorvastatin (Lipitor) 80 mg PO BEDTIME blood sugar diagnostic (FreeStyle Lite Strips) As directed carvedilol (Coreg) 25 mg PO BID clonidine 1 patch transdermal QWEEK clopidogrel (Plavix) 75 mg PO DAILY clotrimazole 1% 1 appl topical BID cyclobenzaprine 10 mg PO Q8H docusate sodium (Colace) 100 mg PO BID PRN escitalopram oxalate (Lexapro) 20 mg PO DAILY ferrous sulfate 325 mg PO BID fluticasone propionate 50 mcg/actuation 2 sprays intranasal DAILY fluticasone propionate 110 mcg/actuation (Flovent HFA) 2 puffs inhalation BID gabapentin 800 mg PO TID hydralazine 50 mg PO TID hydrochlorothiazide 25 mg PO DAILY insulin degludec (Tresiba FlexTouch U-100 insulin) 5 units subcut DAILY lancets (TRUEplus Lancets) 4x daily lidocaine 5% (Lidoderm) 1 patch topical DAILY lisinopril 40 mg PO DAILY metformin 1,000 mg PO BID metoclopramide HCl (Reglan) 10 mg PO Q6H PRN mirtazapine 45 mg PO BEDTIME multivitamin 1 tab PO DAILY oxycodone-acetaminophen 7.5-325 mg 1 tab PO Q6H PRN pantoprazole (Protonix) 40 mg PO BID@0630,1630 pioglitazone 15 mg PO DAILY 30 days polyethylene glycol 3350 (Miralax) 17 grams PO DAILY HPI HPI Comments History of Present Illness Details 59-year-old female with h/o known CAD wi th 60-70% mid RCA stenosis which was FFR negative. In May when she was seen for perioperative cardiovascular risk assessment for fem-pop bypass surgery. She underwent surgery on 05/18/2020 and this was performed for a nonhealing left leg ulcer. She had left femoral to [id number] popliteal bypass with [place] Propaten. She had left popliteal thrombectomy and left femoral endarterectomy. She did well after that and in November she had repeat angiogram performed for claudication by Dr. Aragon. This showed occluded SFA with patent fem-pop bypass. There was ostial profunda femorals stenosis. There is a high-grade stenosis at the distal anastomosis site in the popliteal artery. Anterior tibial is patent. Posterior tibial artery was occluded mid calf. She had successful angioplasty of the distal anastomosis of fem-pop and profunda femoris. On follow-up with us she continued to had like pain. She has been taking medications regularly. Blood pressure control is okay right now. At home she is saying her blood pressures are very high at nighttime and she has reported blood pressures of 200s. 11/07/22: She returns for follow-up. Aster garcia was found to have 70-90% right internal medicine doctor al carotid artery stenosis on neck CTA performed in October 2022. She has seen Dr. Aragon and is being considered for surgery and is referred to us for perioperative cardiovascular risk assessment. She continues to smoke 1 pack per day. She has dyspnea on exertion. Also has non anginal left-sided pulsating chest discomfort which happens at rest. She has also noticed her blood pressure to be significantly elevated at times. She is return to office after 2 years. She had a moderate right coronary artery disease which was FFR negative previously. [facility] Medical History HTN (hypertension) Vitamin D deficiency HLD (hyperlipidemia) T2DM (type 2 diabetes mellitus) H. pylori infection CAD (coronary artery disease) Cyst (solitary) of breast Kidney calculi Arthritis Asthma HTN (hypertension) Diabetes Surgical History History of esophagogastroduodenoscopy (EGD) Hx of colonoscopy History of breast surgery History of cardiac cath Family History Mother Diabetes Liver cancer Social History Household Members: Children and Friend(s) Housing: Apartment Do you presently have visiting nurse or other home services: No Alcohol intake: never Patient Tobacco Use Status: Current everyday Tobacco user Tobacco use type: Cigarette Cigarettes Per Day: 2 Years Smoked: 40 +/- e-Cigarette/Vaping Use: Never Used Second Hand Smoke Exposure: No service: No Current occupational status: unemployed and disabled Review of Systems Const Denies chills, Denies fatigue, Denies fever(s), Denies frequent falls, Denies weakness, Denies weight gain and Denies weight loss ENT Denies dizziness Card Denies chest pain, Denies leg edema, Denies lightheadedness, Denies palpitations, Denies dyspnea, Denies dyspnea on exertion, Denies orthopnea and Denies other (loss of consciousness) Resp Denies cough, Denies dyspnea and Denies dyspnea on exertion GI Denies hematochezia and Denies change in stool character Musc Denies abnormal gait, Denies muscle weakness, Denies numbness, Denies radiating pain into limb and Denies tingling Neuro Denies abnormal gait, Denies dizziness, Denies frequent falls, Denies numbness, Denies tingling and Denies weakness Endo Denies fatigue and Denies palpitations Physical Exam GENERAL APPEARANCE: in no acute distress. HEENT: unremarkable. HEAD: normocephalic, atraumatic. NECK/THYROID: Bilateral carotid bruits, no jugular venous distention. SKIN: no suspicious lesions, warm and dry. HEART: no murmurs, regular rate and rhythm, S1, S2 normal. LUNGS: clear to auscultation bilaterally. ABDOMEN: normal, bowel sounds present, soft, nontender, nondistended. EXTREMITIES: no clubbing, cyanosis, or edema. NEUROLOGIC: nonfocal, alert and oriented. PSYCH: mood/affect full range. Office Procedures EKG Details: Sinus rhythm 72 beats per minute, normal axis, inferior and lateral T-wave inversions, left ventricular hypertrophy, QTC 442 milliseconds. [id number], Complete Assessment & Plan Assessment & Plan (1) Tobacco abuse: Code(s): Z72.0 - Tobacco use (2) Bilateral carotid artery stenosis: Code(s): I65.23 - Occlusion and stenosis of bilateral carotid arteries (3) CAD (coronary artery disease): Comment: cath 2016, med managed Code(s): I25.10 - Atherosclerotic heart disease of [place] coronary artery without angina pectoris Plan 61-year-old female who is here for follow-up. She was seen in 2020 when she underwent fem-pop bypass surgery. She had angiography done at that time which showed 60 70% RCA stenosis which was FFR negative. She is back after couple of years now and currently in need of carotid endarterectomy. She has dyspnea on exertion. She is a heavy smoker and is currently smoking 1 pack per day despite significant vascular disease. We had a detailed discussion about smoking cessation. She is saying she gets very anxious when she tries to quit. She is on multiple medications including amitriptyline, Lexapro and mirtazapine. My intention was to add Wellbutrin but it appears that she is on multiple medications currently which need to be stopped before we can start that. Also she is on Reglan which has an interaction. Please considering stopping any potential medications so we can try Wellbutrin or alternatively Chantix. In terms of perioperative cardiovascular risk assessment, she has known coronary disease and is a heavy smoker currently. She has dyspnea on exertion which can be anginal equivalent although I think it is probably due to COPD. In any case carotid surgery has risk of [place] associated with it and the patient needs exercise stress test before we can proceed with carotid surgery. We will arrange stress Mibi. Thank you for allowing me to participate in the care of your patient. Please feel free to contact me if you have any questions. Orders: Orders NM cardiolite stress test Today Z01.810 - Encounter for preprocedural cardiovascular examination CA stress test Today Z01.810 - Encounter for preprocedural cardiovascular examination Coding Level of Care Code Est Pt Level 4 (96512) Diagnoses Tobacco abuse Z72.0 Bilateral carotid artery stenosis I65.23 CAD (coronary artery disease) I25.10 CPT Codes EKG - CPT: 08497-[id number], Complete ([id number])
== END 2022-11-07 10:44 | disposition home or self-care (01) ==
PROVIDERS: PCP Family Medicine; Visit Provider Internal Medicine Cardiovascular Disease
DX: Z72.0 Tobacco use (principal); I65.23 Occlusion and stenosis of bilateral carotid arteries; I25.10 Atherosclerotic heart disease of native coronary artery without angina pectoris
CPT/HCPCS: 93010; 99214

== ENCOUNTER → 2022-11-07 09:55 | Outpatient (BNVA) | payer MEDICAID, SELFPAY | PROVIDERS: PCP Family Medicine; Visit Provider Internal Medicine Cardiovascular Disease | DX: I65.23 Occlusion and stenosis of bilateral carotid arteries (principal); I25.10 Atherosclerotic heart disease of native coronary artery without angina pectoris; Z72.0 Tobacco use | CPT/HCPCS: 93005; 99212 ==

== ENCOUNTER 2022-11-18 22:34 | Emergency (ER) | payer MEDICAID, SELFPAY ==
[2022-11-18 22:44] VITALS: BP 214/70; PULSE 101; RESP 18; TEMP 36.7; O2SAT 98; BMI 26.0
[2022-11-18 22:59] VITALS: BP 190/77; PULSE 98; RESP 26; TEMP 36.9; O2SAT 98
[2022-11-18 23:06] LABS: Alanine Aminotransferase 7 U/L (0-31); Albumin Level 3.8 g/dL (3.5-5.0); Alkaline Phosphatase 75 U/L (39-117); Anion Gap 13 (12-20); Aspartate Amino Transferase 10 U/L (5-31); Bilirubin Total 0.3 mg/dL (0.0-1.0); Blood Urea Nitrogen 18 mg/dL (9-16); Calcium 9.3 mg/dL (8.4-10.2); Carbon Dioxide 27 mmol/L (22-29); Chloride 103 mmol/L (96-108); Creatinine Clr Calc Pharmacy 48.9; Estimated Glomerular Filt Rate 52; Glucose Random 368 mg/dL (60-115); Sodium 139 mmol/L (135-145); Total Protein 6.6 g/dL (6.5-8.0)
--- NOTE | 2022-11-18 23:47 | PC.NURSE ---
This RN took over pt assignment at 2340. Pt ca&ox4, no signs of distress. Pt reports 9/10 chest pain and 7/10 headache. Pt denies n/v and dizziness. Plan of care ongoing.
--- NOTE | 2022-11-18 23:53 | PC.NURSE ---
Pt requested and given warm blanket.
--- NOTE | 2022-11-19 00:17 | PC.NURSE ---
Addendum entered by Zenia Belle 11/19/22 00:22: Pt reports she took her b/p meds at 2100. Original Note: Pt reports she took her b/p meds @ 2000pm Pt reports she ate a sandwich prior to coming into the ED. Plan of care ongoing.
--- NOTE | 2022-11-19 00:23 | PC.NURSE ---
Provider Ismael made aware of pts poc of 368. Plan of care ongoing.
[2022-11-19 00:42] VITALS: BP 187/59; PULSE 83; RESP 19; O2SAT 98
--- NOTE | 2022-11-19 00:49 | PC.NURSE ---
Pt medicated per apr. Pt requesting and shown restroom. Pt ambulates with a steady gait and denies dizziness. Plan of care ongoing.
[2022-11-19 02:00] VITALS: BP 188/56; PULSE 81; RESP 23; O2SAT 95
--- NOTE | 2022-11-19 02:23 | ED.CHESTPAIN ---
HPI - Chest Pain General Chief Complaint: Chest Pain Stated Complaint: high blood pressure Time Seen by Provider: 11/19/22 00:12 Source: patient Mode of arrival: ambulatory History of Present Illness HPI narrative: 61-year-old female who complains of left-sided upper outer chest pain that hurts worse with pushing on it and states that her blood pressure has been elevated she also describes headache but no nausea she also reports some dizziness and shortness of breath. Related Data Home Medications Medication Instructions Recorded Confirmed metformin 1,000 mg tablet 1,000 mg PO BID 12/22/19 11/07/22 aspirin 81 mg tablet,delayed 81 mg PO DAILY 01/02/20 11/07/22 release (Adult Low Dose Aspirin) atorvastatin 80 mg tablet (Lipitor) 80 mg PO BEDTIME 01/02/20 11/07/22 carvedilol 25 mg tablet (Coreg) 25 mg PO BID 01/02/20 11/07/22 escitalopram oxalate 20 mg tablet 20 mg PO DAILY 01/02/20 11/07/22 (Lexapro) gabapentin 800 mg tablet 800 mg PO TID 01/02/20 11/07/22 lisinopril 40 mg tablet 40 mg PO DAILY 01/02/20 11/07/22 mirtazapine 45 mg tablet 45 mg PO BEDTIME 01/02/20 11/07/22 multivitamin 1 tab PO DAILY 01/02/20 11/07/22 acetaminophen 650 mg 650 mg PO Q8H PRN Pain (Scale 01/16/21 11/07/22 tablet,extended release (Arthritis Score 1-3) Pain Relief (acetaminophen) ER) amlodipine 10 mg tablet 10 mg PO BEDTIME 01/16/21 11/07/22 fluticasone propionate 110 2 puff inhalation BID 01/16/21 11/07/22 mcg/actuation HFA aerosol inhaler (Flovent HFA) fluticasone propionate 50 2 spray intranasal DAILY 01/16/21 11/07/22 mcg/actuation nasal spray,suspension lidocaine 5 % topical patch 1 patch topical DAILY 01/16/21 11/07/22 (Lidoderm) pantoprazole 40 mg tablet,delayed 40 mg PO BID@0630,1630 01/16/21 11/07/22 release (Protonix) blood sugar diagnostic (FreeStyle #10 ea 03/30/21 10/03/22 Lite Strips) clotrimazole 1 % topical cream 1 appl topical BID 03/30/21 11/07/22 oxycodone-acetaminophen 7.5 mg-325 1 tab PO Q6H PRN severe pain 05/07/21 11/07/22 mg tablet insulin degludec 100 unit/mL (3 5 unit subcut DAILY 10/03/22 11/07/22 mL) subcutaneous pen (Tresiba FlexTouch U-100 insulin) amitriptyline 50 mg tablet 50 mg PO BEDTIME 11/07/22 11/07/22 Previous Rx's Medication Instructions Recorded ferrous sulfate 325 mg (65 mg 325 mg PO BID #60 tabs 05/24/20 iron) tablet hydrochlorothiazide 25 mg tablet 25 mg PO DAILY #30 tabs 08/13/20 clopidogrel 75 mg tablet (Plavix) 75 mg PO DAILY #30 tabs 12/02/20 pioglitazone 15 mg tablet 15 mg PO DAILY 30 days #30 tabs 12/02/20 albuterol sulfate 2.5 mg/3 mL 2.5 mg (3 mL) inhalation Q4H PRN 01/19/21 (0.083 %) solution for nebulization shortness of breath/wheeze #100 mL lancets 33 gauge (TRUEplus Lancets) #100 ea 07/26/21 hydralazine 50 mg tablet 50 mg PO TID #3 tabs 09/21/21 acetaminophen 325 mg tablet 650 mg (2 x 325 mg) PO Q6H PRN 03/09/22 (Tylenol) pain #60 tabs clonidine 0.2 mg/24 hr weekly 1 patch transdermal QWEEK #4 ea 03/09/22 transdermal patch cyclobenzaprine 10 mg tablet 10 mg PO Q8H #14 tabs 04/17/22 docusate sodium 100 mg capsule 100 mg PO BID PRN Constipation #14 04/17/22 (Colace) caps polyethylene glycol 3350 17 17 g PO DAILY #238 grams 04/17/22 gram/dose oral powder (Miralax) metoclopramide HCl 10 mg tablet 10 mg PO Q6H PRN headache #20 tabs 04/24/22 (Reglan) Allergies Allergy/AdvReac Type Severity Reaction Status Date / Time latex [LATEX] Allergy Unknown RASH Verified 11/18/22 22:44 naproxen [From NAPROSYN] Allergy Unknown TACHYCARDIA Verified 11/18/22 22:44 Review of Systems Review of Systems: Pertinent positives and negatives as stated in [facility] Past Medical History Source: nursing notes reviewed Medical History HTN (hypertension) Vitamin D deficiency HLD (hyperlipidemia) T2DM (type 2 diabetes mellitus) H. pylori infection CAD (coronary artery disease) Cyst (solitary) of breast Kidney calculi Arthritis Asthma HTN (hypertension) Diabetes Surgical History History of esophagogastroduodenoscopy (EGD) Hx of colonoscopy History of breast surgery History of cardiac cath Family History Family History Mother Diabetes Liver cancer Social History Social History Household Members: Children and Friend(s) Housing: Apartment Do you presently have visiting nurse or other home services: No Alcohol intake: never Patient Tobacco Use Status: Current everyday Tobacco user Tobacco use type: Cigarette Cigarettes Per Day: 2 Years Smoked: 40 +/- e-Cigarette/Vaping Use: Never Used Second Hand Smoke Exposure: No Advance Directives: No Advance Directives Information Provided: Yes service: No Current occupational status: unemployed and disabled Physical Exam Vital Signs: Vital Signs: Last Vital Signs Temp 98.4 F 11/18/22 22:59 Pulse 81 11/19/22 02:00 Resp 23 H 11/19/22 02:00 BP 188/56 H 11/19/22 02:00 Pulse Ox 95 11/19/22 02:00 O2 Del Method Room Air 11/19/22 02:00 BMI result Body Mass Index 26.0 VITAL SIGNS: Reviewed. GENERAL: Well developed, well nourished, in no acute distress. HEAD: Normocephalic/atraumatic EYES: PERRLA, EOMI EARS: Ext canals without abnormality NOSE: Nares patent bilateral OROPHARYNX: no oral lesions noted, posterior pharynx clear NECK: Supple, no adenopathy LUNGS: Normal breath sounds. No adventitious sounds or accessory muscle use. SpO2<98>; CHEST WALL: Patient has reproducible pain on palpation at the left superior/lateral of the chest wall without crepitus or palpable mass. CARDIOVASCULAR: Regular rate and rhythm without noted murmurs, no JVD or lower extremity edema. ABDOMEN: Soft, non-tender, non-distended with bowel sounds. MUSCULOSKELETAL: No tenderness, deformities, or effusions noted on gross inspection. EXTREMITIES: No cyanosis, clubbing or edema. SKIN: Inspection of the skin reveals no rashes NEUROLOGIC: Alert and oriented x 4. Strength and sensation to light touch were grossly intact x 4. Medications Administered Discontinued Medications Generic Name Dose Route Start Last Admin Trade Name Nabila PRN Reason Stop Dose Admin Acetaminophen 975 mg 11/19/22 00:37 11/19/22 00:46 Acetaminophen 325 Mg Tablet PO 11/19/22 00:38 975 mg ONCE ONE Administration Hydralazine HCl 25 mg 11/19/22 02:34 11/19/22 03:05 Hydralazine Hcl 25 Mg Tablet PO 11/19/22 02:35 25 mg ONCE ONE Administration Protocol Lidocaine 1 patch 11/19/22 02:31 11/19/22 03:04 Lidocaine 4 % Patch Adh..Patch TRANSDERMA 11/19/22 02:32 1 patch ONCE ONE Administration Protocol Medical Decision Making Medical Decision Making MDM Narrative: 61-year-old female with history and clinical presentation, DDX: Uncontrolled hypertension, lower clinical suspicion for pneumonia/primary ACS. Patient has no focal deficits. Reviewed all investigations and hematologic indices are negative for leukocytosis there is a mild left shift of unclear significance, no thrombocytopenia and patient has a normocytic anemia. Chemistry and sees are negative for PATRICK her electrolytes/liver enzyme abnormalities. Patient does have a hyperglycemia without evidence to suggest DKA or HHS and on obtaining further collateral information she endorses that she ate a sandwich just prior to presenting to the emergency room. High sensitivity troponin is chronically detectable and EKG does not demonstrate any acute changes from previous. Chest x-ray without infiltrate and otherwise my interpretation is in agreement with radiology's impression. Patient received combination analgesics for her headache and chest wall discomfort. Patient also given an additional 25 mg of oral hydralazine. She is otherwise discharged home in my interpretation is that she has poorly controlled high blood pressure and musculoskeletal pain to the upper portion of the left chest wall. Differential Diagnosis Differential Diagnoses: The differential diagnosis associated with the presentation includes Please see the discussion above Admission/Observation Consideration of admission/observation: Escalation of care including admission/observation considered Please see the discussion above Lab Data MDM Lab Attestation statement: I reviewed the patient's lab results. Please see the discussion above 11/18/22 22:40 11/18/22 22:40 Labs: Lab Results 11/18/22 Range/Units 22:40 WBC 6.1 (4.8-10.8) X10*3/uL RBC 3.70 L (4.20-5.50) X10*6/uL Hgb 11.1 L (12.0-16.0) g/dl Hct 33.4 L (37.0-47.0) % MCV 90.3 (80.0-98.0) fL MCH 30.0 (27.0-33.0) pg MCHC 33.2 (31.0-35.0) g/dl RDW 13.1 (11.0-16.0) % Plt Count 261 (160-400) X10*3/uL MPV 8.9 L (9.4-12.3) fL Immature Gran % (Auto) 0.3 (0.0-0.4) % Neut % (Auto) 76.5 H (45-73) % Lymph % (Auto) 12.4 L (20-40) % [place] % (Auto) 7.5 (2-11) % Eos % (Auto) 2.6 (0-4) % Baso % (Auto) 0.7 (0-2) % Lymph # (Auto) 0.8 L (1.2-4.9) X10*3/uL [place] # (Auto) 0.5 (0.1-1.2) X10*3/uL Eos # (Auto) 0.2 (0.0-0.4) X10*3/uL Baso # (Auto) 0.0 (0.0-0.2) X10*3/uL Abs Immat Gran (auto) 0.02 (0.00-0.03) X10*3/uL Absolute Neuts (auto) 4.7 (2.0-8.3) x10*3/uL Absolute Nucleated RBC 0.000 (0.0-0.012) X10*3/uL Nucleated RBC % (auto) 0.0 (0.0-0.2) /100WBC Sodium 139 (135-145) mmol/L Potassium 4.0 (3.3-5.1) mmol/L Chloride 103 (96-108) mmol/L Carbon Dioxide 27 (22-29) mmol/L Anion Gap 13 (12-20) BUN 18 H (9-16) mg/dL Creatinine 1.08 (0.5-1.4) mg/dL Estim Creat Clear Calc 48.9 Estimated GFR 52 Random Glucose 368 H* (60-115) mg/dL Calcium 9.3 (8.4-10.2) mg/dL Total Bilirubin 0.3 (0.0-1.0) mg/dL AST 10 (5-31) U/L ALT 7 (0-31) U/L Alkaline Phosphatase 75 (39-117) U/L Troponin I High Sens 2.9 D (<3.5-17.0) ng/L Total Protein 6.6 (6.5-8.0) g/dL Albumin 3.8 (3.5-5.0) g/dL Independent Interpretation I performed an independent interpretation of an: EKG Radiology Impression Discussion of test interpretation with radiology: I have reviewed the radiologist's reading. Radiologist Impression: Please see the discussion above External Record Review External record reviewed: Outpatient record, Prior outpatient labs and Prior outpatient radiology Chronic Conditions Patient?s care impacted by: Diabetes and Hypertension Critical Care Time Critical Care Time Critical Care Time: Yes Total Critical Care Time: 30 Attestation: I personally attest to this time spent taking care of the patient. Discharge Plan Discharge Clinical Impression: Hypertension, uncontrolled, Headache, Musculoskeletal pain Patient Disposition: Home, Self-Care Instructions: Musculoskeletal Pain (ED), DASH Eating Plan (ED), Hypertension (ED), General Headache (ED) Additional Instructions: 1. Reanudar todos los medicamentos caseros. 2. Recomiende Tylenol/ibuprofeno de venta nathaniel seg?n sea necesario para controlar el dolor; puede combinarlo con un parche de lidoca?na para un alivio adicional de los s?ntomas. 3. Diana un seguimiento con weaver proveedor de atenci?n primaria el lunes por la ma?ludmila. Regrese a la james de emergencias si los s?ntomas empeoran. 1. Resume all home medications. 2. Recommend vvjv-sib-awhjgys Tylenol/ibuprofen as needed for pain control, you may combine this with lidocaine patch for additional symptom relief. 3. Please follow-up with primary care provider Monday morning. Return to the ER for any worsening symptoms. Prescriptions: No Action hydrochlorothiazide 25 mg tablet 25 mg PO DAILY Qty: 30 0RF Rx Instructions: Must call to schedule a cardiology appointment for more refills - overdue pioglitazone 15 mg tablet 15 mg PO DAILY 30 Days Qty: 30 11RF (DME) lancets [TRUEplus Lancets] 33 gauge misc See Rx Instructions .Route Qty: 100 11RF Rx Instructions: 4x daily metformin 1,000 mg Tablet 1,000 mg PO BID ferrous sulfate 325 mg (65 mg iron) tablet 325 mg PO BID Qty: 60 0RF clopidogrel [Plavix] 75 mg tablet 75 mg PO DAILY Qty: 30 5RF clonidine 0.2 mg/24 hr patch weekly 1 patch transdermal QWEEK Qty: 4 0RF acetaminophen [Tylenol] 325 mg tablet 650 mg PO Q6H PRN (Reason: pain) Qty: 60 0RF cyclobenzaprine 10 mg tablet 10 mg PO Q8H Qty: 14 0RF docusate sodium [Colace] 100 mg capsule 100 mg PO BID PRN (Reason: Constipation) Qty: 14 0RF polyethylene glycol 3350 [Miralax] 17 gram/dose powder 17 g PO DAILY Qty: 238 0RF metoclopramide HCl [Reglan] 10 mg tablet 10 mg PO Q6H PRN (Reason: headache) Qty: 20 0RF amlodipine 10 mg Tablet 10 mg PO BEDTIME pantoprazole [Protonix] 40 mg tablet,delayed release (DR/EC) 40 mg PO BID@0630,1630 lidocaine [Lidoderm] 5 % Adhesive Patch,Medicated 1 patch TOPICAL DAILY fluticasone propionate 50 mcg/actuation [place],Suspension 2 spray INTRANASAL DAILY acetaminophen [Arthritis Pain Relief (acetam)] 650 mg Tablet Extended Release 650 mg PO Q8H PRN (Reason: Pain (Scale Score 1-3)) Flovent HFA 110 mcg/actuation Hfa Aerosol Inhaler 2 puff INHALATION BID albuterol sulfate 2.5 mg /3 mL (0.083 %) Solution For Nebulization 2.5 mg inhalation Q4H PRN (Reason: shortness of breath/wheeze) Qty: 100 0RF oxycodone-acetaminophen 7.5-325 mg tablet 1 tab PO Q6H PRN (Reason: severe pain) amitriptyline 50 mg tablet 50 mg PO BEDTIME hydralazine 50 mg tablet 50 mg PO TID Qty: 3 0RF carvedilol [Coreg] 25 mg tablet 25 mg PO BID Rx Instructions: must administer with a meal/food multivitamin Tablet 1 tab PO DAILY lisinopril 40 mg tablet 40 mg PO DAILY gabapentin 800 mg tablet 800 mg PO TID aspirin [Adult Low Dose Aspirin] 81 mg tablet,delayed release (DR/EC) 81 mg PO DAILY escitalopram oxalate [Lexapro] 20 mg tablet 20 mg PO DAILY mirtazapine 45 mg tablet 45 mg PO BEDTIME atorvastatin [Lipitor] 80 mg tablet 80 mg PO BEDTIME Tresiba FlexTouch U-100 100 unit/mL (3 mL) insulin pen 5 unit subcut DAILY (DME) FreeStyle Lite Strips Strip See Rx Instructions Not Applicable QID Qty: 10 Rx Instructions: As directed clotrimazole 1 % cream 1 appl topical BID Referrals: Radha Jamison DO [Primary Care Provider] - Interventions: ED Discharge Assessment Last Done: 11/19/22 03:16 Discharge Date/Time: 11/19/22 03:18 Print Language: Mongolian
--- NOTE | 2022-11-19 03:07 | PC.NURSE ---
Pt medicated per apr. Pt requested and lido patch placed on left upper chest. Plan of care ongoing.
== END 2022-11-19 03:18 | disposition home or self-care (01) ==
PROVIDERS: Emergency Provider Student in an Organized Health Care Education/Training Program; PCP Family Medicine
DX: I10 Essential (primary) hypertension (principal); R51.9 Headache, unspecified; M79.10 Myalgia, unspecified site; E11.9 Type 2 diabetes mellitus without complications; E78.5 Hyperlipidemia, unspecified; F17.210 Nicotine dependence, cigarettes, uncomplicated; Z79.82 Long term (current) use of aspirin; Z79.899 Other long term (current) drug therapy; Z79.4 Long term (current) use of insulin
CPT/HCPCS: 36415; 71045; 80053; 84484; 85025; 93005; 99283; 99285

== ENCOUNTER → 2022-11-23 08:17 | Outpatient (REF) | payer MEDICAID, SELFPAY ==
--- NOTE | ~2022-11-23 | NM_ITS ---
Lexiscan Myocardial perfusion study Indication: Coronary disease, assess for ischemia Technique: The patient was brought in for a Lexiscan perfusion study on 11/23/2022 and was injected 0.4 mg of Lexiscan intravenously. Within a minute of this injection 25 mCi of sestamibi was given intravenously. Images were obtained using the SPECT gamma camera interlaced with the gating device. Images were obtained in supine position. Resting perfusion study was performed on 11/24/2022. Patient was administered 25 mCi of sestamibi intravenously at rest. Images were then obtained in supine position. Images were processed with the software and compared side to side in short axis, horizontal long axis and vertical long axis views. Total DLP 96mGy-cm. Findings: Raw acquisition reviewed. The stress perfusion study showed mildly decreased tracer uptake in the basal part of inferolateral wall but otherwise unremarkable. There is improvement with CT attenuation correction and hence could've components of diaphragmatic attenuation artifact. The gated study shows mildly reduced LV systolic function with calculated LVEF of 49%. LV cavity is normal in size. The gated study shows normal wall thickening and contraction of segments. Resting study shows no significant perfusion abnormality. Gating at rest reveals normal wall motion with ejection fraction at 54%. The findings are consistent with mild intensity basal inferolateral reversible defect. NM/NM cardiolite stress test Impression: 1. Myocardial perfusion imaging study shows mild intensity ischemia in the basal inferolateral wall. 2. Gated LVEF is 49% during stress and 54% during rest. 3. Transient ischemic dilatation not present. EKG component of the test reported separately.
--- NOTE | 2022-11-23 08:19 | CA_ITS ---
Acquisition Time: 2022-11-23 08:37:48 Total Exercise Time: 00:02:06 Test Indications: PREOP Medications: AMLODIPINE ASA ATORVASTATIN CARVEDILOL Protocol: CHRISTIANO Max HR: 121 BPM 75% of Pred: 160 BPM Max BP: 154/060 mmHG Max Work Load: 3.5 METS Exercise stress test exercise 2 min 6 sec of Christiano protocol achieving 70% MPHR, with request to stop due to foot pain and fatigue, without arrhythmias, without anginal symptoms, with normotensive response to exericse, with t wave inversion in aVR. PT assisted to sitting position and test changed to pharmacolgoical stress test. Pharmacolgoical stress test with Lexiscan injection while sitting and kicking her legs, with moderate SOB, no chest discomfort, with vomiting and bradycardia from Lexiscan down to the 50s, with normotensive response to injection, with nondiagnositic EKGs. Aminophylline 75mg IVP given to reverse Lexiscan. Nuclear images pending. Test reviewed [facility] Dr. Daniel. Baseline EKG with downsloping ST with T inversion. These changes persist through stress and recovery with some prominence. Referred By: Ghanshyam Daniel Overread By: JM DU
== END ==
LOC: HO.CARD 08:17
PROVIDERS: PCP Family Medicine; Visit Provider Internal Medicine Cardiovascular Disease
DX: Z01.810 Encounter for preprocedural cardiovascular examination (principal)
CPT/HCPCS: 78452; 93017; A9500; J0280; J2785

== ENCOUNTER → 2022-11-23 08:38 | Outpatient (BNV) | payer MEDICAID, SELFPAY | PROVIDERS: PCP Family Medicine; Visit Provider Internal Medicine | DX: I25.10 Atherosclerotic heart disease of native coronary artery without angina pectoris (principal) | CPT/HCPCS: 78452; 93016; 93018 ==

== ENCOUNTER 2022-11-28 07:07 | Inpatient (IN) | payer MEDICAID, SELFPAY ==
[2022-11-23 12:55] VITALS: BP 179/75; PULSE 84; RESP 16; O2SAT 99; BMI 26.4
--- NOTE | 2022-11-23 13:17 | HO.ANESPROP2 ---
Documented by User: Susana Taylor NP 11/25/22 09:23 HPI - Anesthesia Eval Consult details Narrative: 61yo F for Right Carotid Endarterectomy, 11/28/[address] Daniel, [facility] cardiology, intermed to high risk (abnormal stress but intervention may not change risk). Continue DAPT periop. No recent illness Reports CP and some SOB. Cardiac testing pending results DM. FBS ~310-345. Insulin increased late October. Pt reports no notable difference in FBS. Instructed to call PCP. Asthma. Rescue inhaler use ~ weekly Case reviewed with Dr Linh TINEO Active Problems Active Problems: All Active Problems (Updated 11/20/22 @ 00:02 by Background Ramila) Tobacco abuse (Acute) Bilateral carotid artery stenosis (Acute) Leg wound, right (Acute) Stable angina (Acute) Postoperative anemia (Acute) Status post femoral-popliteal bypass surgery (Acute) Preoperative cardiovascular examination (Acute) PAD (peripheral artery disease) (Acute) Diabetic foot ulcer (Acute) Uncontrolled diabetes mellitus (Acute) Infection of toe (Acute) Abdominal bloating (Acute) LUQ abdominal pain (Acute) Weight loss, abnormal (Acute) Tachycardia (Acute) NIDDY (non-insulin dependent diabetes mellitus in young) (Acute) Nausea and vomiting (Acute) H. pylori infection (Acute) Chest pressure (Acute) CAD (coronary artery disease) (Acute) Vitamin D deficiency (Acute) HLD (hyperlipidemia) (Acute) T2DM (type 2 diabetes mellitus) (Acute) HTN (hypertension) (Acute) Past Medical History Medical History HTN (hypertension) Vitamin D deficiency HLD (hyperlipidemia) T2DM (type 2 diabetes mellitus) H. pylori infection CAD (coronary artery disease) Cyst (solitary) of breast Kidney calculi Arthritis Asthma HTN (hypertension) Diabetes Family History Family History Mother Diabetes Liver cancer Family history of problems with anesthesia: No Surgical History Surgical History S/P aortogram History of esophagogastroduodenoscopy (EGD) Hx of colonoscopy History of breast surgery History of cardiac cath History of Problems with Anesthesia: No Social History Social History Household Members: Children and Friend(s) Household Members Other:: friend and adult son Housing: Apartment Are you a primary residential care facility manager to a significant other at home: No Do you presently have visiting nurse or other home services: No Alcohol intake: never Patient Tobacco Use Status: Current everyday Tobacco user Tobacco use type: Cigarette Cigarette Packs Per Day: 1 Cigarettes Per Day: 20.0 Years Smoked: 40 Smoked in Last 30 Days: Yes e-Cigarette/Vaping Use: Never Used Patient Interested in Nicotine Replacement: Yes Patient Given Instructions on How to Stop Smoking: Yes Date Education Initiated: 11/23/22 Second Hand Smoke Exposure: Yes Use of substances other than those prescribed or required for medical reasons: No Have you been hit, kicked, punched, or otherwise hurt by someone within the past year? If so, by whom?: No Are you DNR?: No Advance Directives: No Advance Directives Information Provided: Yes Advance Directives on File: No Recently lost weight without trying: No Nutrition Risks: No Nutritional Risk service: No Current occupational status: unemployed and disabled Meds Allergies Allergy/AdvReac Type Severity Reaction Status Date / Time latex [LATEX] Allergy Severe RASH Verified 11/23/22 12:51 naproxen [From NAPROSYN] AdvReac Intermediate TACHYCARDIA Verified 11/23/22 12:51 Home Medications Medication Instructions Recorded Confirmed Last Taken Type metformin 1,000 mg tablet 1,000 mg PO BID 12/22/19 11/23/22 11/27/22 History aspirin 81 mg tablet,delayed 81 mg PO DAILY 01/02/20 11/23/22 11/27/22 History release (Adult Low Dose Aspirin) atorvastatin 80 mg tablet (Lipitor) 80 mg PO BEDTIME 01/02/20 11/23/22 11/27/22 History carvedilol 25 mg tablet (Coreg) 25 mg PO BID 01/02/20 11/23/22 11/28/22 History escitalopram oxalate 20 mg tablet 20 mg PO DAILY 01/02/20 11/23/22 11/28/22 History (Lexapro) gabapentin 800 mg tablet 800 mg PO TID 01/02/20 11/23/22 11/28/22 History lisinopril 40 mg tablet 40 mg PO DAILY 01/02/20 11/23/22 11/27/22 History mirtazapine 45 mg tablet 45 mg PO BEDTIME 01/02/20 11/23/22 11/27/22 History multivitamin 1 tab PO DAILY 01/02/20 11/23/22 11/27/22 History acetaminophen 650 mg 650 mg PO Q8H PRN Pain (Scale 01/16/21 11/23/22 Unknown History tablet,extended release (Arthritis Score 1-3) Pain Relief (acetaminophen) ER) amlodipine 10 mg tablet 10 mg PO BEDTIME 01/16/21 11/23/22 11/27/22 History fluticasone propionate 110 2 puff inhalation BID 01/16/21 11/23/22 11/27/22 History mcg/actuation HFA aerosol inhaler (Flovent HFA) fluticasone propionate 50 2 spray intranasal DAILY 01/16/21 11/23/22 11/27/22 History mcg/actuation nasal spray,suspension lidocaine 5 % topical patch 1 patch topical DAILY 01/16/21 11/23/22 Unknown History (Lidoderm) pantoprazole 40 mg tablet,delayed 40 mg PO BID@0630,1630 01/16/21 11/23/22 11/28/22 History release (Protonix) blood sugar diagnostic (FreeStyle #10 ea 03/30/21 10/03/22 Unknown History Lite Strips) clotrimazole 1 % topical cream 1 appl topical BID 03/30/21 11/23/22 11/27/22 History oxycodone-acetaminophen 7.5 mg-325 1 tab PO Q6H PRN severe pain 05/07/21 11/23/22 Unknown History mg tablet insulin degludec 100 unit/mL (3 5 unit subcut DAILY 10/03/22 11/23/22 11/27/22 History mL) subcutaneous pen (Tresiba FlexTouch U-100 insulin) amitriptyline 50 mg tablet 50 mg PO BEDTIME 11/07/22 11/23/22 Unknown History cyclobenzaprine 10 mg tablet 10 mg PO Q8H PRN Muscle Spasm 11/23/22 11/23/22 11/27/22 History metoclopramide HCl 10 mg tablet 10 mg PO Q6H PRN Nausea 11/23/22 11/23/22 11/27/22 History (Reglan) Exam Exam Date and Time: November 23, 2022 1317 Height,Weight and Vital Signs: Height 5 ft Weight 61.235 kg Last Vital Signs Pulse 84 11/23/22 12:55 Resp 16 11/23/22 12:55 BP 179/75 H 11/23/22 12:55 Pulse Ox 99 11/23/22 12:55 O2 Del Method Room Air 11/23/22 12:55 Pertinent Lab Results Pertinent Lab Results: Lab Results 11/23/22 11/23/22 Range/Units 13:57 14:04 WBC 3.7 L (4.8-10.8) X10*3/uL RBC 3.96 L (4.20-5.50) X10*6/uL Hgb 11.8 L (12.0-16.0) g/dl Hct 35.1 L (37.0-47.0) % MCV 88.6 (80.0-98.0) fL MCH 29.8 (27.0-33.0) pg MCHC 33.6 (31.0-35.0) g/dl RDW 13.0 (11.0-16.0) % Plt Count 274 (160-400) X10*3/uL MPV 9.4 (9.4-12.3) fL Absolute Nucleated RBC 0.000 (0.0-0.012) X10*3/uL Nucleated RBC % (auto) 0.0 (0.0-0.2) /100WBC PT 11.0 L (11.1-13.3) SEC INR 0.9 (0.9-1.1) APTT 30.0 (26.0-36.4) SEC Sodium 137 (135-145) mmol/L Potassium 4.2 (3.3-5.1) mmol/L Chloride 100 (96-108) mmol/L Carbon Dioxide 27 (22-29) mmol/L Anion Gap 14 (12-20) BUN 13 (9-16) mg/dL Creatinine 0.81 (0.5-1.4) mg/dL Estim Creat Clear Calc 60.4 Estimated GFR > 60 Random Glucose 304 H (60-115) mg/dL Estimat Average Glucose 258 mg/dL Hemoglobin A1c % 10.6 H (<6.0) % Calcium 9.4 (8.4-10.2) mg/dL Blood Type O Positive Antibody Screen NEGATIVE Narrative Narrative: EKG 11/2022 Vent. Rate : 100 BPM Atrial Rate : 100 BPM P-R Int : 128 ms QRS Dur : 092 ms QT Int : 342 ms P-R-T Axes : 039 -05 135 degrees QTc Int : 441 ms Normal sinus rhythm Possible Left atrial enlargement Incomplete right bundle branch block Left ventricular hypertrophy with repolarization abnormality ( R in aVL ) Abnormal ECG When compared with ECG of 03-APR-2022 19:51, No significant change was found ECHO 04/2022 Conclusions: - The left ventricular systolic function is normal. The calculated ejection fraction is 58% by biplane method. - There is mild aortic valve stenosis. - There is mild mitral annular calcification. - Small plaque is seen in the sino tubular ridge. NM cardiolite stress test 11/2022 Impression: 1. Myocardial perfusion imaging study shows mild intensity ischemia in the basal inferolateral wall. 2. Gated LVEF is 49% during stress and 54% during rest. 3. Transient ischemic dilatation not present. EKG component of the test reported separately. Airway Mallampati Class: III TM Dist: >3cm Denture: Upper Loose/Missing/Broken Teeth: Yes (Lower teeth missing in front, loose and broken) Heart: RRR Lungs: CTAB Assessment and Plan Assessment Anesthesia Assessment: Anesthesia Plan Discussed, Smoking Cess. Discussed and PAT Visit Final Anesthetic Review Family History of Problems with Anesthesia: No History of Problems with Anesthesia: No Documented by User: Magnolia Mauricio MD 11/28/22 09:34 HPI - Anesthesia Eval Consult details Narrative: 61yo F for Right Carotid Endarterectomy, 11/28/[address] Daniel, [facility] cardiology, intermed to high risk (abnormal stress but intervention may not change risk). Continue DAPT periop. No recent illness Reports CP and some SOB. Cardiac testing pending results DM. FBS ~310-345. Insulin increased late October. Pt reports no notable difference in FBS. Instructed to call PCP. Asthma. Rescue inhaler use ~ weekly Case reviewed with Dr Mleton 11/28/22: Patient seen by Cardiology 11/07/22. Stress test ordered and done 11/23/22- Case was discussed with Dr Daniel 11/25/22. Abnormal stress test. Poor functional capacity.Known RCA stenosis 60-70%. Intermediate to high risk for marina-op cardiovascular complications PMFSH Active Problems Active Problems: All Active Problems (Updated 11/28/22 @ 07:15 by Magnolia Mauricio MD) Tobacco abuse (Acute)- last cigarette yesterday Bilateral carotid artery stenosis (Acute) Leg wound, right (Acute) Stable angina (Acute)- Seen in ER 11/19/22 with poorly controlled BP (up to 200s at home per patient, SBP 188 on presentation in ER and left upper chest pain thought to be musculoskeletal Postoperative anemia (Acute) Hct 32.9 11/28/22 Status post femoral-popliteal bypass surgery (Acute) Preoperative cardiovascular examination (Acute) PAD (peripheral artery disease) (Acute) Diabetic foot ulcer (Acute) Uncontrolled diabetes mellitus (Acute) Random BS 368 11/18/22. HbA1c 10.6 FBS 233 11/28/22 Infection of toe (Acute) Abdominal bloating (Acute) LUQ abdominal pain (Acute) Weight loss, abnormal (Acute) NIDDY (non-insulin dependent diabetes mellitus in young) (Acute) Nausea and vomiting (Acute) H. pylori infection (Acute) Chest pressure (Acute) CAD (coronary artery disease) (Acute) Vitamin D deficiency (Acute) HLD (hyperlipidemia) (Acute) T2DM (type 2 diabetes mellitus) (Acute) HTN (hypertension) (Acute) Poor historian Past Medical History Medical History HTN (hypertension) Vitamin D deficiency HLD (hyperlipidemia) T2DM (type 2 diabetes mellitus) H. pylori infection CAD (coronary artery disease) Cyst (solitary) of breast Kidney calculi Arthritis Asthma HTN (hypertension) Diabetes Family History Family History Mother Diabetes Liver cancer Surgical History Surgical History S/P aortogram History of esophagogastroduodenoscopy (EGD) Hx of colonoscopy History of breast surgery History of cardiac cath Social History Social History Household Members: Children and Friend(s) Household Members Other:: friend and adult son Housing: Apartment Are you a primary residential care facility manager to a significant other at home: No Do you presently have visiting nurse or other home services: No Alcohol intake: never Patient Tobacco Use Status: Current everyday Tobacco user Tobacco use type: Cigarette Cigarette Packs Per Day: 1 Cigarettes Per Day: 20.0 Years Smoked: 40 Smoked in Last 30 Days: Yes e-Cigarette/Vaping Use: Never Used Patient Interested in Nicotine Replacement: Yes Patient Given Instructions on How to Stop Smoking: Yes Date Education Initiated: 11/23/22 Second Hand Smoke Exposure: Yes Use of substances other than those prescribed or required for medical reasons: No Have you been hit, kicked, punched, or otherwise hurt by someone within the past year? If so, by whom?: No Are you DNR?: No Advance Directives: No Advance Directives Information Provided: Yes Advance Directives on File: No Recently lost weight without trying: No Nutrition Risks: No Nutritional Risk service: No Current occupational status: unemployed and disabled Meds Allergies Allergy/AdvReac Type Severity Reaction Status Date / Time latex [LATEX] Allergy Severe RASH Verified 11/23/22 12:51 naproxen [From NAPROSYN] AdvReac Intermediate TACHYCARDIA Verified 11/23/22 12:51 Home Medications Medication Instructions Recorded Confirmed Last Taken Type metformin 1,000 mg tablet 1,000 mg PO BID 12/22/19 11/23/22 11/27/22 History aspirin 81 mg tablet,delayed 81 mg PO DAILY 01/02/20 11/23/22 11/27/22 History release (Adult Low Dose Aspirin) atorvastatin 80 mg tablet (Lipitor) 80 mg PO BEDTIME 01/02/20 11/23/22 11/27/22 History carvedilol 25 mg tablet (Coreg) 25 mg PO BID 01/02/20 11/23/22 11/28/22 History escitalopram oxalate 20 mg tablet 20 mg PO DAILY 01/02/20 11/23/22 11/28/22 History (Lexapro) gabapentin 800 mg tablet 800 mg PO TID 01/02/20 11/23/22 11/28/22 History lisinopril 40 mg tablet 40 mg PO DAILY 01/02/20 11/23/22 11/27/22 History mirtazapine 45 mg tablet 45 mg PO BEDTIME 01/02/20 11/23/22 11/27/22 History multivitamin 1 tab PO DAILY 01/02/20 11/23/22 11/27/22 History acetaminophen 650 mg 650 mg PO Q8H PRN Pain (Scale 01/16/21 11/23/22 Unknown History tablet,extended release (Arthritis Score 1-3) Pain Relief (acetaminophen) ER) amlodipine 10 mg tablet 10 mg PO BEDTIME 01/16/21 11/23/22 11/27/22 History fluticasone propionate 110 2 puff inhalation BID 01/16/21 11/23/22 11/27/22 History mcg/actuation HFA aerosol inhaler (Flovent HFA) fluticasone propionate 50 2 spray intranasal DAILY 01/16/21 11/23/22 11/27/22 History mcg/actuation nasal spray,suspension lidocaine 5 % topical patch 1 patch topical DAILY 01/16/21 11/23/22 Unknown History (Lidoderm) pantoprazole 40 mg tablet,delayed 40 mg PO BID@0630,1630 01/16/21 11/23/22 11/28/22 History release (Protonix) blood sugar diagnostic (FreeStyle #10 ea 03/30/21 10/03/22 Unknown History Lite Strips) clotrimazole 1 % topical cream 1 appl topical BID 03/30/21 11/23/22 11/27/22 History oxycodone-acetaminophen 7.5 mg-325 1 tab PO Q6H PRN severe pain 05/07/21 11/23/22 Unknown History mg tablet insulin degludec 100 unit/mL (3 5 unit subcut DAILY 10/03/22 11/23/22 11/27/22 History mL) subcutaneous pen (Tresiba FlexTouch U-100 insulin) amitriptyline 50 mg tablet 50 mg PO BEDTIME 11/07/22 11/23/22 Unknown History cyclobenzaprine 10 mg tablet 10 mg PO Q8H PRN Muscle Spasm 11/23/22 11/23/22 11/27/22 History metoclopramide HCl 10 mg tablet 10 mg PO Q6H PRN Nausea 11/23/22 11/23/22 11/27/22 History (Reglan) Exam Height,Weight and Vital Signs: Height 5 ft Weight 61.235 kg Last Vital Signs Pulse 84 11/23/22 12:55 Resp 16 11/23/22 12:55 BP 179/75 H 11/23/22 12:55 Pulse Ox 99 11/23/22 12:55 O2 Del Method Room Air 11/23/22 12:55 Vital Signs Temp Pulse Resp BP Pulse Ox O2 Del Method 11/28/22 06:37 97.6 F 65 16 135/59 L 99 Room Air Pertinent Lab Results Pertinent Lab Results: Lab Results 11/23/22 11/23/22 Range/Units 13:57 14:04 WBC 3.7 L (4.8-10.8) X10*3/uL RBC 3.96 L (4.20-5.50) X10*6/uL Hgb 11.8 L (12.0-16.0) g/dl Hct 35.1 L (37.0-47.0) % MCV 88.6 (80.0-98.0) fL MCH 29.8 (27.0-33.0) pg MCHC 33.6 (31.0-35.0) g/dl RDW 13.0 (11.0-16.0) % Plt Count 274 (160-400) X10*3/uL MPV 9.4 (9.4-12.3) fL Absolute Nucleated RBC 0.000 (0.0-0.012) X10*3/uL Nucleated RBC % (auto) 0.0 (0.0-0.2) /100WBC PT 11.0 L (11.1-13.3) SEC INR 0.9 (0.9-1.1) APTT 30.0 (26.0-36.4) SEC Sodium 137 (135-145) mmol/L Potassium 4.2 (3.3-5.1) mmol/L Chloride 100 (96-108) mmol/L Carbon Dioxide 27 (22-29) mmol/L Anion Gap 14 (12-20) BUN 13 (9-16) mg/dL Creatinine 0.81 (0.5-1.4) mg/dL Estim Creat Clear Calc 60.4 Estimated GFR > 60 Random Glucose 304 H (60-115) mg/dL Estimat Average Glucose 258 mg/dL Hemoglobin A1c % 10.6 H (<6.0) % Calcium 9.4 (8.4-10.2) mg/dL Blood Type O Positive Antibody Screen NEGATIVE Laboratory Results - last 24 hr 11/28/22 11/28/22 11/28/22 06:31 06:45 06:58 WBC 4.9 RBC 3.70 L Hgb 10.9 L Hct 32.9 L MCV 88.9 MCH 29.5 MCHC 33.1 RDW 13.0 Plt Count 267 MPV 9.5 Absolute Nucleated RBC 0.000 Nucleated RBC % (auto) 0.0 PT 10.6 L INR 0.9 APTT 29.8 Sodium 138 Potassium 3.9 Chloride 103 Carbon Dioxide 26 Anion Gap 13 BUN 16 Creatinine 0.90 Estim Creat Clear Calc 54.3 Estimated GFR > 60 POC Glucose 233 H Random Glucose 254 H Calcium 9.0 COVID-19 (RAMA) Negative COVID-19 Clin Com See Note Airway Mallampati Class: II Neck ROM: Full Loose/Missing/Broken Teeth: Yes (Lower teeth missing in front,few teeththat are present are loose and broken) Heart: RRR+ systolic murmur Assessment and Plan Assessment Anesthesia Assessment: Chart Reviewed Final Anesthetic Review NPO: Yes ASA Class: IV Final Preanesthetic Review: No Changes in Pt Med Stat, Meds/Allgs Chart Reviewed, Consent Obtained/Reviewed and Anes Risks/Benef Reviewed Patient Risk: High Procedure Risk: Intermediate Assessment/Block/Sedation in SS: Assess/Block/Sedation-SS Anesthetic Plan Anesthetic Plan: GA and Other (Arterial line, ICU admission overnight for monitoring ) Disposition: Standard PACU and Inp. Admit - ICU
[2022-11-23 15:03] LABS: Anion Gap 14 (12-20); Blood Urea Nitrogen 13 mg/dL (9-16); Calcium 9.4 mg/dL (8.4-10.2); Carbon Dioxide 27 mmol/L (22-29); Chloride 100 mmol/L (96-108); Creatinine Clr Calc Pharmacy 60.4; Estimated Glomerular Filt Rate > 60; Glucose Random 304 mg/dL (60-115); Potassium 4.2 mmol/L (3.3-5.1); Sodium 137 mmol/L (135-145)
[2022-11-28] VITALS (22 sets, daily range): BP systolic 125–216; BP diastolic 42–86; PULSE 56–67; RESP 12–20; TEMP 36.1–36.6; O2SAT 96–100
--- NOTE | 2022-11-28 | ECG_ITS ---
Test Reason : qtc check Blood Pressure : / mmHG Vent. Rate : 058 BPM Atrial Rate : 058 BPM P-R Int : 148 ms QRS Dur : 094 ms QT Int : 496 ms P-R-T Axes : 049 -06 181 degrees QTc Int : 486 ms Sinus bradycardia Minimal voltage criteria for LVH, may be normal variant ( R in aVL ) ST & T wave abnormality, consider inferolateral ischemia Prolonged QT Abnormal ECG When compared with ECG of 18-NOV-2022 22:36, Vent. rate has decreased BY 42 BPM Incomplete right bundle branch block is no longer Present T-wave inversion in Inferior leads Lateral leads is new Referred By: Cristina Coello Electronically Signed By:SOPHIA STEWARD MD
[2022-11-28] MEDS: Lactated Ringers 1,000 ML 100 ML IVCONT (07:01)
[2022-11-28 07:04] LABS: Hematocrit 32.9 % (37.0-47.0); Hemoglobin 10.9 g/dl (12.0-16.0); Mean Corpuscular HGB Conc 33.1 g/dl (31.0-35.0); Mean Corpuscular Hemoglobin 29.5 pg (27.0-33.0); Mean Corpuscular Volume 88.9 fL (80.0-98.0); Mean Platelet Volume 9.5 fL (9.4-12.3); Platelet Count 267 X10*3/uL (160-400); White Blood Count 4.9 X10*3/uL (4.8-10.8)
[2022-11-28 07:12] LABS: INTERNATIONAL NORM RATIO 0.9 (0.9-1.1); Prothrombin Time 10.6 SEC (11.1-13.3)
[2022-11-28 07:15] LABS: Partial Thromboplastin Time 29.8 SEC (26.0-36.4)
[2022-11-28 07:21] LABS: Anion Gap 13 (12-20); Blood Urea Nitrogen 16 mg/dL (9-16); Carbon Dioxide 26 mmol/L (22-29); Chloride 103 mmol/L (96-108); Creatinine Clr Calc Pharmacy 54.3; Estimated Glomerular Filt Rate > 60; Glucose Random 254 mg/dL (60-115); Potassium 3.9 mmol/L (3.3-5.1); Sodium 138 mmol/L (135-145)
[2022-11-28 07:21] LABS: COVID-19 Test Negative (Negative); IDNOW Serial# BCCEAD1C
--- NOTE | 2022-11-28 08:57 | P.PNCC_ITS ---
Subjective Subjective Date of Service: 11/28/22 Interval History: interval improvement of hypertension Critical Care Time (minutes): 0 Physical Exam 2 Vital Signs: Vital Signs: Last Vital Signs Temp 97.6 F 11/28/22 06:37 Pulse 65 11/28/22 06:37 Resp 16 11/28/22 06:37 BP 135/59 L 11/28/22 06:37 Pulse Ox 99 11/28/22 06:37 O2 Del Method Room Air 11/28/22 06:37 BMI result Body Mass Index 26.4 Const: General: cooperative, healthy appearing, comfortable, no acute distress and well developed Orientation/consciousness: patient oriented x3 HEENT: Head: Yes normal to inspection, Yes normocephalic and Yes atraumatic Eyes: General: appearance normal, both eyes and all related structures Neck: Other: R drain with overlying bandage; no induration, fluctuance Neck: Yes supple Chest: Chest palpation & inspection: normal inspection of the chest Resp: Effort & Inspection: normal respiratory effort Auscultation: no rales, no rhonchi and no wheezes Cardio: Rate: regular rate Rhythm: regular rhythm Heart sounds: S1 normal heart sound present and S2 normal heart sound present GI: Inspection: Yes normal to inspection, No Abdominal wall edema and No distended Palpation (GI): Soft to palpation, not firm, nontender, no guarding and not rigid Skin: General skin exam: no rashes or lesions noted Neuro: General: patient oriented x3, moves all extremities and no focal motor deficits Extrem: General: Yes normal to inspection and Yes capillary refill normal Psych: Mental Status: mental status grossly normal Objective Data Labs 11/29/22 04:47 11/29/22 04:47 Labs: Laboratory Results - last 24 hr 11/28/22 11/28/22 06:31 06:45 WBC 4.9 RBC 3.70 L Hgb 10.9 L Hct 32.9 L MCV 88.9 MCH 29.5 MCHC 33.1 RDW 13.0 Plt Count 267 MPV 9.5 Absolute Nucleated RBC 0.000 Nucleated RBC % (auto) 0.0 PT 10.6 L INR 0.9 APTT 29.8 Sodium 138 Potassium 3.9 Chloride 103 Carbon Dioxide 26 Anion Gap 13 BUN 16 Creatinine 0.90 Estim Creat Clear Calc 54.3 Estimated GFR > 60 Random Glucose 254 H Calcium 9.0 COVID-19 (RAMA) Negative COVID-19 Clin Com See Note Progress Note: A&P Assessment and plan (1) CAD (coronary artery disease): Status: Acute (2) T2DM (type 2 diabetes mellitus): Status: Acute (3) HTN (hypertension): Status: Acute (4) HLD (hyperlipidemia): Status: Acute (5) PVD (peripheral vascular disease): Status: Acute Plan Assessment: Patient is a 59 Y F with significant cardiovascular disease including hypertension, hyperlipidemia, diabetes mellitus, c/b CAD, PVD s/p L femoral-popliteal bypass on 05/18/2020, now w/ R internal carotid artery stenosis, s/p endarterectomy, tolerated procedure well N: no acute issues CV: R internal carotid artery stenosis, s/p endarterectomy; hypertension; resume home medications R: no acute issues GI: no acute issues; advance diabetic diet as tolerated : no acute issues H: no acute issues ID: marina-operative cefazolin E: diabetes mellitus, insulin sliding scale P: no acute issues Quality Stroke Does the patient have a stroke diagnosis?: No VTE Prior VTE?: No VTE Risk Level:: Surgical - high VTE Device Contraindication: N/A - Device Ordered VTE Drug Contraindication: Treatment Not Tolerated
[2022-11-28 09:19] LABS: Glucose, Whole Blood 233 mg/dL (60-115)
--- NOTE | 2022-11-28 09:33 | PHA.MEDREC ---
Pharmacy Consult ? Medication Reconciliation Pharmacy has completed the medication reconciliation. Completed by RN reviewed by pharmacy Yefri
--- NOTE | 2022-11-28 10:39 | W.PM.OPN ---
Operative Note Operative Note Date of Service: 11/28/22 Narrative: Operative note by [facility] Preoperative diagnosis:1. Right Carotid stenosis Postoperative diagnosis: Same Procedure: Right Carotid endarterectomy with patch angioplasty Surgeon:Caleb Aragon M.D. Sponge Press Operator: Dr. Moreno Anesthesia: General Specimens: 1 Drains: 1 Estimated blood loss: 100 mL Indications: 61-year-old female known to have high-grade right carotid stenosis presents for carotid endarterectomy this is confirmed by CT angiogram. She now presents for operative endarterectomy The patient has signed the informed consent after reviewing risks, complications, benefits, and alternatives previously discussed with the patient. The patient was given the opportunity to ask any additional questions or voice any concerns. All questions were answered to the patient's satisfaction. Procedure in detail: Patient was taken to the operating room and placed in a supine position and prepped and draped in sterile manner with ChloraPrep. Longitudinal incision was made along the anterior border of the right sternocleidomastoid carried down through the subcutaneous fat and fascia. Hemostasis was obtained with electrocautery. The platysma muscle was then divided. The carotid sheath was identified in open. The vagus nerve, Ancef cervicalis, and hypoglossal nerves were identified and avoided. The common internal and external carotids were then freed from the surrounding tissue. At this point, 5000 units of heparin was administered and allowed to circulate for 5 minutes time to take effect. The internal, common, external carotids were clamped in that order. Once this was accomplished, we proceeded with the procedure. The carotid bulb was opened with an 11 blade and extended with Fields scissors through the very tight lesion into normal internal carotid artery. This was then extended down into the common carotid artery. We then placed a Goins shunt. Then the plaque was sharply excised proximally and an eversion endarterectomy was performed successfully at the external. The plaque tapered nicely on to the internal and no tacking sutures were necessary. Heparinized saline was injected and no evidence of flapping or other debris was noted. The remaining carotid was examined, which showed no debris or flaps present. At this point a XenoSure patch was brought on to the field. This was anastomosed to the artery using a 6 0 Prolene in a running fashion. Once approximately 4/5 of the patch was sewn in the shunt was then removed. Prior to the last stitch the internal carotid was back bled through this. Heparinized saline was instilled into the carotid. The last stitch was tied. Hemostasis was excellent. The internal carotid was gently occluded while while of the external and internal were open in that order. Finally the internal was then opened and flow was restored to the entire system. Hemostasis was achieved with interrupted 7-0 Prolene sutures. The wound was irrigated thoroughly. We then placed a 7 flat David-Stack drain. Deep layer was reapproximated using a 2-0 poly Sorb and finally the superficial layer with a 3-0 Polysorb. The skin was closed in a subcuticular manner. The patient awoke and neurologic status was checked and appeared to be intact. Sponge, needle and instrument counts were correct. The patient tolerated the procedure well. Returned to recovery with stable vitals. This note is constructed using voice recognition software. While every effort has been made to ensure accuracy, assisted living executive director errors may have been included. Thank you for allowing me to participate in the care of your patient. Yours sincerely, Caleb Aragon MD, FACS, R.P.V.I.
--- NOTE | 2022-11-28 11:04 | MHC.SHP ---
Pre-Procedural Eval Section A Date of Service: 11/28/22 The patient is an INPATIENT: No Changes since office visit: Yes Patient answered all questions The History & Physical has been completed within 30 days and I have reviewed it.: Yes Section B Chief Complaint: postop Allergies: Allergies Allergy/AdvReac Type Severity Reaction Status Date / Time latex [LATEX] Allergy Severe RASH Verified 11/23/22 12:51 naproxen [From NAPROSYN] AdvReac Intermediate TACHYCARDIA Verified 11/23/22 12:51 Plan I have reviewed the history and physical and performed a pertinent physical examination on my patient. No changes have occurred unless specified. Time Spent With Patient Time: Total time managing care of this patient today ____ minutes.
[2022-11-28] MEDS: fentaNYL citrate/PF 100 MCG/2 ML VIAL 25 MCG IVPUSH ×3 (11:45→12:30)
[2022-11-28] MEDS: oxyCODONE HCl Immed Release 5 MG TABLET PO ×2 (11:45→13:39)
[2022-11-28] MEDS: Morphine Sulfate 2 MG/ML CARTRIDGE IVPUSH ×2 (13:18→17:50)
[2022-11-28] MEDS: 0.9 % Sodium Chloride 1,000 ML 80 ML IVCONT (13:23)
[2022-11-28] MEDS: ceFAZolin Sodium/Dextrose,Iso 2 GM/50 ML PIGGYBACK IV (13:39)
[2022-11-28] MEDS: Acetaminophen 325 MG TABLET 650 MG PO ×2 (13:39→20:06)
[2022-11-28] MEDS: Metoclopramide HCl 10 MG/2 ML VIAL IVPUSH (14:24)
[2022-11-28] MEDS: Gabapentin 400 MG CAPSULE 800 MG PO ×2 (14:24→20:07)
[2022-11-28] MEDS: diphenhydrAMINE HCL 50 MG/ML VIAL 12.5 MG IVPUSH (14:25)
[2022-11-28] MEDS: amLODIPine Besylate 10 MG TABLET PO ×2 (14:25→20:06)
[2022-11-28] MEDS: hydrALAZINE HCl 50 MG TABLET PO (14:26)
[2022-11-28] MEDS: cloNIDine 0.2 MG PATCH.TDWK TRANSDERMA (14:27)
[2022-11-28 18:48] LABS: Glucose, Whole Blood 300 mg/dL (60-115)
[2022-11-28] MEDS: hydrALAZINE HCl 50 MG TABLET 100 MG PO (20:04)
[2022-11-28] MEDS: hydrALAZINE HCl 20 MG/ML VIAL 10 MG IVPUSH (20:05)
[2022-11-28] MEDS: Mirtazapine 15 MG TABLET 45 MG PO (20:06)
[2022-11-28] MEDS: Atorvastatin Calcium 80 MG TABLET PO (20:07)
[2022-11-28] MEDS: carvediloL 25 MG TABLET PO (20:08)
[2022-11-28] MEDS: metFORMIN HCl 1,000 MG TABLET 1000 MG PO (20:08)
[2022-11-28] MEDS: Insulin Lispro 100 UNIT/ML 3 ML VIAL SUBCUT (20:08)
[2022-11-28 20:09] LABS: Glucose, Whole Blood 310 mg/dL (60-115)
[2022-11-28] MEDS: 0.9 % Sodium Chloride Flush 3 ML SYRINGE IVFLUSH (23:02)
[2022-11-29] VITALS (10 sets, daily range): BP systolic 104–142; BP diastolic 37–50; PULSE 55–68; RESP 12–17; TEMP 36.8; O2SAT 94–99; BMI 28.5
[2022-11-29] MEDS: 0.9 % Sodium Chloride 1,000 ML 80 ML IVCONT (00:41)
[2022-11-29 01:44] LABS: Glucose, Whole Blood 169 mg/dL (60-115)
[2022-11-29] MEDS: Insulin Lispro 100 UNIT/ML 3 ML VIAL SUBCUT ×2 (02:10→06:46)
[2022-11-29 04:56] LABS: MANUAL DIFF FLAG NO
[2022-11-29 04:58] LABS: Basophils Percent Auto 0.3 % (0-2); Eosinophils Percent Auto 0.3 % (0-4); Hematocrit 26.4 % (37.0-47.0); Hemoglobin 8.8 g/dl (12.0-16.0); Imm Gran Abs Auto 0.04 X10*3/uL (0.00-0.03); Imm Gran Pct Auto 0.5 % (0.0-0.4); Lymphocytes Absolute Auto 1.2 X10*3/uL (1.2-4.9); Lymphocytes Percent Auto 15.3 % (20-40); Mean Corpuscular HGB Conc 33.3 g/dl (31.0-35.0); Mean Corpuscular Hemoglobin 29.8 pg (27.0-33.0); Mean Corpuscular Volume 89.5 fL (80.0-98.0); Mean Platelet Volume 9.5 fL (9.4-12.3); Monocytes Absolute Auto 0.5 X10*3/uL (0.1-1.2); Monocytes Percent Auto 6.3 % (2-11); Neutrophils Absolute Auto 5.8 x10*3/uL (2.0-8.3); Neutrophils Percent Auto 77.3 % (45-73); Platelet Count 222 X10*3/uL (160-400); Red Blood Count 2.95 X10*6/uL (4.20-5.50); Red Cell Distribution Width 13.1 % (11.0-16.0); White Blood Count 7.6 X10*3/uL (4.8-10.8)
[2022-11-29 05:13] LABS: Anion Gap 13 (12-20); Blood Urea Nitrogen 19 mg/dL (9-16); Calcium 8.3 mg/dL (8.4-10.2); Carbon Dioxide 23 mmol/L (22-29); Chloride 106 mmol/L (96-108); Creatinine Clr Calc Pharmacy 58.9; Estimated Glomerular Filt Rate > 60; Glucose Random 188 mg/dL (60-115); Potassium 4.2 mmol/L (3.3-5.1); Sodium 138 mmol/L (135-145)
[2022-11-29] MEDS: Acetaminophen 325 MG TABLET 650 MG PO (05:32)
[2022-11-29 06:14] LABS: Glucose, Whole Blood 184 mg/dL (60-115)
--- NOTE | 2022-11-29 08:50 | P.CDIM_ITS ---
PROVIDER RESPONSE TEXT: To clarify, the appropriate diagnosis supported by the clinical indicators: Diabetes mellitus Type 2 with hypergylcemia QUERY TEXT: PHYSICIAN'S DOCUMENTATION REQUEST Date of Query: 11/29/2022 08:41 AM EDT Patient Name: Rocío Hallman Admit Date: 11/28/2022 Dear Caleb Aragon, A review of the medical record indicates additional documentation may be needed. Please review below and update the documentation accordingly. Clinical Indicators: LAB FINDINGS: POC glucose 300 H 310 H Insulin Based on the above, is there a diagnosis that correlates with these lab findings: Diabetes mellitus Type 2 with hypergylcemia Labs indicate a diagnosis of (please specify) Other (explain)Clinically unable to determine (explain)Thank you, Liz Oliveira, CCS, CDIS Use of terms such as suspected, likely, concern for, or probable (associated with a specific diagnosi s that is being evaluated, monitored, or treated as if it exists) are acceptable and can be coded in the inpatient se tting, when documented at the time of discharge. Please use your independent medical judgment in providing your response. THIS QUERY IS PART OF THE PERMANENT MEDICAL RECORD
[2022-11-29] MEDS: Lidocaine 4 % Patch ADH..PATCH 1 PATCH TRANSDERMA (09:14)
[2022-11-29] MEDS: Insulin Glargine,Hum.rec.anlog 100 UNIT/ML 10 ML VIAL SUBCUT (09:15)
[2022-11-29] MEDS: Clopidogrel Bisulfate 75 MG TABLET PO (09:15)
[2022-11-29] MEDS: Aspirin Enteric Coated 81 MG TABLET.DR PO (09:15)
[2022-11-29] MEDS: hydroCHLOROthiazide 25 MG TABLET PO (09:15)
[2022-11-29] MEDS: lisinopriL 40 MG TABLET PO (09:15)
[2022-11-29] MEDS: Multivitamin TABLET 1 TAB PO (09:16)
[2022-11-29] MEDS: Escitalopram Oxalate 20 MG TABLET PO (09:16)
[2022-11-29] MEDS: carvediloL 25 MG TABLET PO (09:16)
[2022-11-29] MEDS: metFORMIN HCl 1,000 MG TABLET 1000 MG PO (09:16)
[2022-11-29] MEDS: hydrALAZINE HCl 50 MG TABLET 100 MG PO (09:16)
[2022-11-29] MEDS: Gabapentin 400 MG CAPSULE 800 MG PO (09:16)
[2022-11-29] MEDS: Morphine Sulfate 2 MG/ML CARTRIDGE IVPUSH (09:24)
[2022-11-29] MEDS: 0.9 % Sodium Chloride Flush 3 ML SYRINGE IVFLUSH (09:32)
--- NOTE | 2022-11-29 09:52 | MHC.CM.PN ---
Addendum entered by Theresa Alonso 11/29/22 13:28: DP: PT HAS BEEN MEDICALLY CLEARED FOR DC HOME, NO SERVICES. DAUGHTER TO TRANSPORT Original Note: CM MET WITH PT AT BEDSIDE IN ICU WITH PERSONAL LINES APPRAISER. PT LIVES ALONE BUT HAS FAMILY SUPPORT. NO LICENSED FUNERAL DIRECTOR OR VNA SERVICES PRIOR BUT WOULD LIKE MORE INFORMATION ON HOW GRANDDAUGHTER CAN BE HER LICENSED FUNERAL DIRECTOR. REFERRAL SENT TO [facility] FOR ASSESSMENT. INDEPENDENT AT BASELINE. + HCP ON FILE. PCP DR. PAT AT [facility]. DP: HOME, UNSURE IF VNA SERVICES WILL BE ORDERED. PT IS OPEN TO SERVICES IF NEEDED, REQUEST [facility]. DAUGHTER WILL TRANSPORT HOME. CM WILL CONTINUE TO FOLLOW FOR ANY CHANGE IN DC PLAN/NEEDS.
--- NOTE | 2022-11-29 10:26 | HO.POSTANES ---
Post Anesthesia Evaluation Post Anesthesia Evaluation Date of Service: 11/29/22 Vital Signs: Vital Signs Temp Pulse Pulse Resp BP BP Pulse Ox 11/29/22 09:35 96 11/29/22 09:35 96 11/29/22 07:19 68 124/49 L 11/29/22 07:00 68 14 122/48 L 94 11/29/22 06:00 63 12 106/40 L 96 11/29/22 05:00 60 12 123/44 L 97 11/29/22 04:00 65 134/50 L 11/29/22 04:00 98.2 F 11/29/22 04:00 55 12 104/37 L 97 11/29/22 03:00 65 17 127/46 L 97 11/29/22 02:00 64 12 128/49 L 97 11/29/22 01:00 64 13 140/48 H 98 11/29/22 00:00 98.2 F 11/29/22 00:00 60 13 142/49 H 99 11/29/22 00:00 65 142/48 H 11/28/22 23:00 58 12 130/44 L 99 O2 Del Method 11/29/22 09:35 Nasal Cannula 11/29/22 09:35 Room Air 11/29/22 07:19 11/29/22 07:00 Room Air 11/29/22 06:00 Room Air 11/29/22 05:00 Room Air 11/29/22 04:00 11/29/22 04:00 11/29/22 04:00 Room Air 11/29/22 03:00 Room Air 11/29/22 02:00 Room Air 11/29/22 01:00 Room Air 11/29/22 00:00 11/29/22 00:00 Room Air 11/29/22 00:00 11/28/22 23:00 Room Air Anesthesia: General Endotracheal-GETA Mental Status: Awake Pain Control: Satisfactory Nausea/Vomiting: None Hydration: Adequate Anesthesia-Related Issues: No Anes. Related Issues
[2022-11-29 11:07] LABS: Glucose, Whole Blood 141 mg/dL (60-115)
--- NOTE | 2022-11-29 13:15 | P.DS_ITS ---
DS: Providers Provider Date of Service: 11/29/22 Date of admission: 11/28/22 07:07 Primary care physician: Radha Jamison DO DS: Diagnosis Discharge Diagnosis (1) CAD (coronary artery disease): Status: Acute (2) T2DM (type 2 diabetes mellitus): Status: Acute (3) HTN (hypertension): Status: Acute (4) HLD (hyperlipidemia): Status: Acute (5) PVD (peripheral vascular disease): Status: Acute DS: Summary Hospital Course Hospital Course: Patient underwent elective right carotid endarterectomy on 11/28/2022. No postoperative issues. She did have a little bit of blood pressure that was labile but was well controlled. Postop day 1 was tolerating a diet pain was reasonably well controlled and was stable for discharge. Time Spent with Patient Time attestation: Total time managing care of this patient today ____ minutes. Discharge coordination time: Greater than 30 minutes Quality: Safe Use of Opioids Does Pt have an Active Cancer Diagnosis on the Problem List?: No Quality: Stroke Does the patient have a stroke diagnosis?: No Physical Exam 2 Vital Signs: Vital Signs: Last Vital Signs Temp 98.2 F 11/29/22 04:00 Pulse 68 11/29/22 07:19 Resp 14 11/29/22 07:00 BP 124/49 L 11/29/22 07:19 Pulse Ox 96 11/29/22 09:35 O2 Del Method Room Air 11/29/22 09:35 O2 Flow Rate 6 11/28/22 10:50 BMI result Body Mass Index 28.5 Const: General: cooperative, healthy appearing and no acute distress Orientation/consciousness: oriented to person, oriented to place and oriented to time HEENT: Head: Yes normal to inspection Neck: Carotids: no bruits Chest: Chest palpation & inspection: normal inspection of the chest Resp: Effort & Inspection: normal respiratory effort and able to speak in complete sentences Auscultation: clear to auscultation bilaterally Cardio: Rate: regular rate Heart sounds: S1 normal heart sound present and S2 normal heart sound present GI: Inspection: Yes normal to inspection Skin: Other: Neck appears to have mild hematoma incision appears to be well healing General skin exam: no rashes or lesions noted Wounds: no wounds Neuro: General: oriented to person, oriented to place, oriented to time and CN's II-XI intact bilaterally Extrem: General: Yes normal to inspection, Yes full ROM and Yes no clubbing, cyanosis or edema Psych: Appearance: grossly normal and well kempt Speech and movement: Normal speech and movement present Affect: normal affect DS: Data Data Completed and Pending Completed studies during hospitalization [Text1]: Pending at discharge 11/28/22 09:46 Surgical [PTH] Routine Procedures Extirpation of Matter from Left Femoral Artery, Open Approach (05/09/20) Extirpation of Matter from Left Popliteal Artery, Open Approach (05/09/20) Fluoroscopy of Aorta and Bilateral Lower Extremity Arteries (05/09/20) Insertion of Infusion Device into Superior Vena Cava, Percutaneous Approach (05/09/20) Supplement Left Femoral Artery with Synthetic Substitute, Open Approach (05/09/20) Supplement Left Popliteal Artery with Synthetic Substitute, Open Approach (05/09/20) Transfusion of Nonautologous Red Blood Cells into Peripheral Vein, Percutaneous Approach (05/09/20) Labs on day of discharge: Laboratory Results - last 24 hr 11/28/22 11/28/22 11/29/22 18:44 20:05 01:40 WBC RBC Hgb Hct MCV MCH MCHC RDW Plt Count MPV Immature Gran % (Auto) Neut % (Auto) Lymph % (Auto) Garrett % (Auto) Eos % (Auto) Baso % (Auto) Lymph # (Auto) Garrett # (Auto) Eos # (Auto) Baso # (Auto) Abs Immat Gran (auto) Absolute Neuts (auto) Absolute Nucleated RBC Nucleated RBC % (auto) Sodium Potassium Chloride Carbon Dioxide Anion Gap BUN Creatinine Estim Creat Clear Calc Estimated GFR POC Glucose 300 H 310 H 169 H Random Glucose Calcium 11/29/22 11/29/22 11/29/22 04:47 06:09 11:03 WBC 7.6 RBC 2.95 L D Hgb 8.8 L Hct 26.4 L MCV 89.5 MCH 29.8 MCHC 33.3 RDW 13.1 Plt Count 222 MPV 9.5 Immature Gran % (Auto) 0.5 H Neut % (Auto) 77.3 H Lymph % (Auto) 15.3 L Garrett % (Auto) 6.3 Eos % (Auto) 0.3 Baso % (Auto) 0.3 Lymph # (Auto) 1.2 Garrett # (Auto) 0.5 Eos # (Auto) 0.0 Baso # (Auto) 0.0 Abs Immat Gran (auto) 0.04 H Absolute Neuts (auto) 5.8 Absolute Nucleated RBC 0.000 Nucleated RBC % (auto) 0.0 Sodium 138 Potassium 4.2 Chloride 106 Carbon Dioxide 23 Anion Gap 13 BUN 19 H Creatinine 0.83 Estim Creat Clear Calc 58.9 Estimated GFR > 60 POC Glucose 184 H 141 H Random Glucose 188 H Calcium 8.3 L D Discharge Plan Discharge Anticipated Discharge Date/Time: 11/29/22 13:11 Patient Disposition: Home, Self-Care Discharge Diagnosis: Status post right carotid endarterectomy Referrals: Radha Jamison DO [Primary Care Provider] - 1 Week Discharge Medications: New oxycodone-acetaminophen [Percocet] 5-325 mg tablet 1 tab PO Q8H PRN (Reason: pain) Qty: 10 0RF Rx Instructions: Partial Fill upon patient request. Continued hydrochlorothiazide 25 mg tablet 25 mg PO DAILY Qty: 30 0RF Rx Instructions: Must call to schedule a cardiology appointment for more refills - overdue pioglitazone 15 mg tablet 15 mg PO DAILY 30 Days Qty: 30 11RF (DME) lancets [TRUEplus Lancets] 33 gauge misc See Rx Instructions .Route Qty: 100 11RF Rx Instructions: 4x daily metformin 1,000 mg Tablet 1,000 mg PO BID ferrous sulfate 325 mg (65 mg iron) tablet 325 mg PO BID Qty: 60 0RF clopidogrel [Plavix] 75 mg tablet 75 mg PO DAILY Qty: 30 5RF clonidine 0.2 mg/24 hr patch weekly 1 patch transdermal QWEEK Qty: 4 0RF docusate sodium [Colace] 100 mg capsule 100 mg PO BID PRN (Reason: Constipation) Qty: 14 0RF polyethylene glycol 3350 [Miralax] 17 gram/dose powder 17 g PO DAILY Qty: 238 0RF amlodipine 10 mg Tablet 10 mg PO BEDTIME pantoprazole [Protonix] 40 mg tablet,delayed release (DR/EC) 40 mg PO BID@0630,1630 lidocaine [Lidoderm] 5 % Adhesive Patch,Medicated 1 patch TOPICAL DAILY fluticasone propionate 50 mcg/actuation [place],Suspension 2 spray INTRANASAL DAILY acetaminophen [Arthritis Pain Relief (acetam)] 650 mg Tablet Extended Release 650 mg PO Q8H PRN (Reason: Pain (Scale Score 1-3)) fluticasone propionate [Flovent HFA] 110 mcg/actuation Hfa Aerosol Inhaler 2 puff INHALATION BID albuterol sulfate 2.5 mg /3 mL (0.083 %) Solution For Nebulization 2.5 mg inhalation Q4H PRN (Reason: shortness of breath/wheeze) Qty: 100 0RF oxycodone-acetaminophen 7.5-325 mg tablet 1 tab PO Q6H PRN (Reason: severe pain) amitriptyline 50 mg tablet 50 mg PO BEDTIME hydralazine 50 mg tablet 50 mg PO TID Qty: 3 0RF cyclobenzaprine 10 mg tablet 10 mg PO Q8H PRN (Reason: Muscle Spasm) metoclopramide HCl [Reglan] 10 mg Tablet 10 mg PO Q6H PRN (Reason: Nausea) carvedilol [Coreg] 25 mg tablet 25 mg PO BID Rx Instructions: must administer with a meal/food multivitamin Tablet 1 tab PO DAILY lisinopril 40 mg tablet 40 mg PO DAILY gabapentin 800 mg tablet 800 mg PO TID aspirin [Adult Low Dose Aspirin] 81 mg tablet,delayed release (DR/EC) 81 mg PO DAILY escitalopram oxalate [Lexapro] 20 mg tablet 20 mg PO DAILY mirtazapine 45 mg tablet 45 mg PO BEDTIME atorvastatin [Lipitor] 80 mg tablet 80 mg PO BEDTIME Tresiba FlexTouch U-100 100 unit/mL (3 mL) insulin pen 5 unit subcut DAILY (DME) FreeStyle Lite Strips Strip See Rx Instructions Not Applicable QID Qty: 10 Rx Instructions: As directed clotrimazole 1 % cream 1 appl topical BID Discharge Orders: Discharge Order (Routine); Ordered 11/29/22 Ordered By: Caleb Aragon Diet: Advance to usual diet Activity on Discharge: As tolerated Stand Alone Forms: Patient Portal Discharge page Care Plan Goals: Carotid follow-up Health Concerns: High-grade carotid stenosis Plan of Treatment: Surveillance follow-up Assessment: Status post right carotid endarterectomy
[2022-11-29] MEDS: oxyCODONE HCl Immed Release 5 MG TABLET PO (13:35)
== END 2022-11-29 14:10 | disposition home or self-care (01) | DRG 24 ==
LOC: HO.EDOVER 07:08 → HO.ICU 07:12
PROVIDERS: Nurse Practitioner; Admitting Provider Surgery Vascular Surgery; PCP Family Medicine; Visit Provider Surgery Vascular Surgery
PROC: 03CH0ZZ Extirpation of Matter from Right Common Carotid Artery, Open Approach (ICD-10-PCS; CPT 35301; principal; 2022-11-28 07:30)
DX: I65.21 Occlusion and stenosis of right carotid artery (principal); E11.51 Type 2 diabetes mellitus with diabetic peripheral angiopathy without gangrene; E78.5 Hyperlipidemia, unspecified; I25.10 Atherosclerotic heart disease of native coronary artery without angina pectoris; F17.210 Nicotine dependence, cigarettes, uncomplicated; I10 Essential (primary) hypertension; E11.65 Type 2 diabetes mellitus with hyperglycemia; Z71.6 Tobacco abuse counseling; Z91.040 Latex allergy status; Z79.02 Long term (current) use of antithrombotics/antiplatelets; Z79.51 Long term (current) use of inhaled steroids; Z79.82 Long term (current) use of aspirin; Z79.84 Long term (current) use of oral hypoglycemic drugs; Z79.899 Other long term (current) drug therapy
CPT/HCPCS: 36415; 80048; 82947; 83036; 85025; 85027; 85610; 85730; 86850; 86900; 86901; 87635; 88304; 88311; 93005; C1758; C1768; J0131; J0690; J1200; J1643; J2250; J2270; J2371; J2405; J2765; J2795; J3010

== ENCOUNTER → 2022-11-28 07:07 | Outpatient (BNV) | payer MEDICAID, SELFPAY | PROVIDERS: Admitting Provider Surgery Vascular Surgery; PCP Family Medicine; Visit Provider Internal Medicine Critical Care Medicine | DX: I25.10 Atherosclerotic heart disease of native coronary artery without angina pectoris (principal); E11.3213 Type 2 diabetes mellitus with mild nonproliferative diabetic retinopathy with macular edema, bilateral; I10 Essential (primary) hypertension; E78.5 Hyperlipidemia, unspecified; I73.9 Peripheral vascular disease, unspecified | CPT/HCPCS: 99222 ==

== ENCOUNTER → 2022-11-28 07:07 | Outpatient (BNV) | payer MEDICAID, SELFPAY | PROVIDERS: Admitting Provider Surgery Vascular Surgery; PCP Family Medicine; Visit Provider Surgery Vascular Surgery | DX: I25.10 Atherosclerotic heart disease of native coronary artery without angina pectoris (principal); E11.3213 Type 2 diabetes mellitus with mild nonproliferative diabetic retinopathy with macular edema, bilateral; I10 Essential (primary) hypertension; E78.5 Hyperlipidemia, unspecified; I73.9 Peripheral vascular disease, unspecified | CPT/HCPCS: 35301; 99024 ==

== ENCOUNTER 2022-12-02 01:42 | Emergency (ER) | payer MEDICAID, SELFPAY ==
--- NOTE | ~2022-12-02 | CT_ITS ---
EXAMINATION: CT HEAD WITHOUT CONTRAST CLINICAL INFORMATION: Headache, accelerated hypertension COMPARISON: 05/11/2022 TECHNIQUE: Contiguous axial imaging was performed from the skull base to vertex without intravenous administration of contrast. This CT examination was performed using dose optimization techniques as appropriate, variously including the following: *Automated exposure control *Adjustment of mA and/or kV according to patient size (this includes techniques or standardized protocols for targeted exams where dose is matched to indication/reason for exam; i.e. extremities or head) *Use of iterative reconstruction technique DLP: 582 mGy-cm FINDINGS: There is no evidence of acute intracranial hemorrhage. No abnormal mass-effect or midline shift is seen. Kelly to white matter differentiation is well preserved. No extra-axial fluid collections are identified. The ventricles are normal in size. There is a new region of hypoattenuation in the right basal ganglia compared to prior, suspicious for a small focus of age-indeterminate infarct. The osseous structures and soft tissues are normal. Partially opacified bilateral ethmoid air cells. The visualized portions of the paranasal sinuses are well-aerated. CT/CT head/brain wo IV con IMPRESSION: New region of hypoattenuation in the right basal ganglia, suspicious for a small focus of age-indeterminate infarct, though new since 05/11/2022, which would be better assessed with MRI. No acute intracranial hemorrhage.
[2022-12-02 02:25] VITALS: BP 198/96; BP 222/79; PULSE 65; PULSE 69; RESP 18; TEMP 36.9; O2SAT 98; BMI 26.9
--- NOTE | 2022-12-02 02:31 | PC.NURSE ---
provider at bedside discussing pt care. provider cleaning pt neck wound with saline and redressed with tegaderm.
[2022-12-02] MEDS: Butalb/Acetamin/Caff 50/325/40 TABLET 1 TAB PO (02:34)
--- NOTE | 2022-12-02 02:42 | PC.NURSE ---
pt biba from home. pt a&ox3, respirations even and unlabored. pt reports having neck surgery at [facility] Monday for a blocked right neck artery. pt reports increased neck pain and on episode of dizziness with a fall 2 days ago. pt denies LOC and head strike. pt reports surgeon did not mention when to remove the dressing or loco. pt reporting 9/10 migraine at this time. provider aware of elevated blood pressure.
[2022-12-02 03:03] VITALS: BP 202/73; PULSE 66; RESP 18; O2SAT 98
--- NOTE | 2022-12-02 03:23 | ED.WOUNDLAC ---
HPI - Wound/Laceration General Chief Complaint: Wound/Laceration Stated Complaint: Abdominal Pain Time Seen by Provider: 12/02/22 02:30 Source: patient Mode of arrival: ambulatory Limitations: no limitations History of Present Illness HPI narrative: Patient status post right carotid enterectomy done 4 days comes as she noticed slight pain and swelling at the site of the surgery although patient complaining of headache with light sensitivity with history of migraine headaches in the past occasionally, does have history of hypertension and taken her medication no nausea no vomiting blood pressure on arrival was 222/79 patient on multiple medication for hypertension lisinopril 40 mg amlodipine 10 mg carvedilol 25 mg and hydralazine 50 mg 3 times a day according to her she did not miss any other medication today no history of any stroke in the past taking baby aspirin and Plavix Related Data Home Medications Medication Instructions Recorded Confirmed metformin 1,000 mg tablet 1,000 mg PO BID 12/22/19 11/23/22 aspirin 81 mg tablet,delayed 81 mg PO DAILY 01/02/20 11/23/22 release (Adult Low Dose Aspirin) atorvastatin 80 mg tablet (Lipitor) 80 mg PO BEDTIME 01/02/20 11/23/22 carvedilol 25 mg tablet (Coreg) 25 mg PO BID 01/02/20 11/23/22 escitalopram oxalate 20 mg tablet 20 mg PO DAILY 01/02/20 11/23/22 (Lexapro) gabapentin 800 mg tablet 800 mg PO TID 01/02/20 11/23/22 lisinopril 40 mg tablet 40 mg PO DAILY 01/02/20 11/23/22 mirtazapine 45 mg tablet 45 mg PO BEDTIME 01/02/20 11/23/22 multivitamin 1 tab PO DAILY 01/02/20 11/23/22 acetaminophen 650 mg 650 mg PO Q8H PRN Pain (Scale 01/16/21 11/23/22 tablet,extended release (Arthritis Score 1-3) Pain Relief (acetaminophen) ER) amlodipine 10 mg tablet 10 mg PO BEDTIME 01/16/21 11/23/22 fluticasone propionate 110 2 puff inhalation BID 01/16/21 11/23/22 mcg/actuation HFA aerosol inhaler (Flovent HFA) fluticasone propionate 50 2 spray intranasal DAILY 01/16/21 11/23/22 mcg/actuation nasal spray,suspension lidocaine 5 % topical patch 1 patch topical DAILY 01/16/21 11/23/22 (Lidoderm) pantoprazole 40 mg tablet,delayed 40 mg PO BID@0630,1630 01/16/21 11/23/22 release (Protonix) blood sugar diagnostic (FreeStyle #10 ea 03/30/21 10/03/22 Lite Strips) clotrimazole 1 % topical cream 1 appl topical BID 03/30/21 11/23/22 oxycodone-acetaminophen 7.5 mg-325 1 tab PO Q6H PRN severe pain 05/07/21 11/23/22 mg tablet insulin degludec 100 unit/mL (3 5 unit subcut DAILY 10/03/22 11/23/22 mL) subcutaneous pen (Tresiba FlexTouch U-100 insulin) amitriptyline 50 mg tablet 50 mg PO BEDTIME 11/07/22 11/23/22 cyclobenzaprine 10 mg tablet 10 mg PO Q8H PRN Muscle Spasm 11/23/22 11/23/22 metoclopramide HCl 10 mg tablet 10 mg PO Q6H PRN Nausea 11/23/22 11/23/22 (Reglan) Previous Rx's Medication Instructions Recorded ferrous sulfate 325 mg (65 mg 325 mg PO BID #60 tabs 05/24/20 iron) tablet hydrochlorothiazide 25 mg tablet 25 mg PO DAILY #30 tabs 08/13/20 clopidogrel 75 mg tablet (Plavix) 75 mg PO DAILY #30 tabs 12/02/20 pioglitazone 15 mg tablet 15 mg PO DAILY 30 days #30 tabs 12/02/20 albuterol sulfate 2.5 mg/3 mL 2.5 mg (3 mL) inhalation Q4H PRN 01/19/21 (0.083 %) solution for nebulization shortness of breath/wheeze #100 mL lancets 33 gauge (TRUEplus Lancets) #100 ea 07/26/21 hydralazine 50 mg tablet 50 mg PO TID #3 tabs 09/21/21 clonidine 0.2 mg/24 hr weekly 1 patch transdermal QWEEK #4 ea 03/09/22 transdermal patch docusate sodium 100 mg capsule 100 mg PO BID PRN Constipation #14 04/17/22 (Colace) caps polyethylene glycol 3350 17 17 g PO DAILY #238 grams 04/17/22 gram/dose oral powder (Miralax) oxycodone-acetaminophen 5 mg-325 1 tab PO Q8H PRN pain #10 tabs 11/29/22 mg tablet (Percocet) Allergies Allergy/AdvReac Type Severity Reaction Status Date / Time latex [LATEX] Allergy Severe RASH Verified 12/02/22 02:29 naproxen [From NAPROSYN] AdvReac Intermediate TACHYCARDIA Verified 12/02/22 02:29 Review of Systems Review of Systems: Yes all other systems are reviewed and are negative [facility] Past Medical History Medical History HTN (hypertension) Vitamin D deficiency HLD (hyperlipidemia) T2DM (type 2 diabetes mellitus) H. pylori infection CAD (coronary artery disease) Cyst (solitary) of breast Kidney calculi Arthritis Asthma HTN (hypertension) Diabetes Surgical History S/P aortogram History of esophagogastroduodenoscopy (EGD) Hx of colonoscopy History of breast surgery History of cardiac cath Family History Family History Mother Diabetes Liver cancer Social History Social History Household Members: Children and Friend(s) Household Members Other:: friend and adult son Housing: Apartment Are you a primary youth care specialist to a significant other at home: No Do you presently have visiting nurse or other home services: No Alcohol intake: never Patient Tobacco Use Status: Current everyday Tobacco user Tobacco use type: Cigarette Cigarette Packs Per Day: 1 Cigarettes Per Day: 20.0 Years Smoked: 40 Smoked in Last 30 Days: Yes e-Cigarette/Vaping Use: Never Used Second Hand Smoke Exposure: Yes Use of substances other than those prescribed or required for medical reasons: No Advance Directives: No Advance Directives Information Provided: Yes Patient : No service: No Current occupational status: unemployed and disabled Physical Exam Vital Signs: Vital Signs: Last Vital Signs Temp 98.3 F 12/02/22 05:33 Pulse 103 H 12/02/22 05:33 Resp 16 12/02/22 05:33 BP 152/80 H 12/02/22 05:33 Pulse Ox 96 12/02/22 05:33 O2 Del Method Room Air 12/02/22 05:33 BMI result Body Mass Index 26.9 Appearance: Alert. Oriented X3. No acute distress. Eyes: PERRLA, No Nystagmus ENT: Pharynx normal. Oral Mucosa moist Neck: Normal inspection. Neck supple. Intact postop wound with small hematoma around CVS: Normal heart rate and rhythm. Pulses normal. Respiratory: No respiratory distress. Equal air entry bilateral, no wheezing/rales/rhonchi Abdomen: Soft and nontender. Bowel sounds are present, no mass palpable, no CVA tenderness Skin: Skin warm and dry. Normal skin color. Normal skin turgor. Extremities: No lower extremity edema. No calf tenderness Neuro: Oriented X 3. No motor deficit. No sensory deficit.No cerebellar signs , cranial nerves II-XII intact Medications Administered Discontinued Medications Generic Name Dose Route Start Last Admin Trade Name Freq PRN Reason Stop Dose Admin Acetaminophen/Butalbital/Caffeine 1 tab 12/02/22 02:30 12/02/22 02:34 Butalb/Acetamin/Caff 50/325/40 Tablet PO 12/02/22 02:31 1 tab ONCE ONE Administration Medical Decision Making Medical Decision Making [facility] Narrative: Patient with mildly elevated blood pressure with slight headache CT scan of the head was negative for SAH patient feeling much better after Fioricet does have history of migraine does have a slightly elevated systolic blood pressure could be because of headache will give extra dose of hydralazine advised to follow-up with PCP Patient's CT scan showed slightly hypodensity in right basal ganglia patient without any focal deficit NIHSS score was 0 already on aspirin and Plavix which will continue Differential Diagnosis Differential Diagnoses: The differential diagnosis associated with the presentation includes SAH/migraine headache/tension headache/STA Radiology Impression Discussion of test interpretation with radiology: I have reviewed the radiologist's reading. Discharge Plan Discharge Clinical Impression: Headache, migraine, Hypertension Prescriptions: No Action hydrochlorothiazide 25 mg tablet 25 mg PO DAILY Qty: 30 0RF Rx Instructions: Must call to schedule a cardiology appointment for more refills - overdue pioglitazone 15 mg tablet 15 mg PO DAILY 30 Days Qty: 30 11RF (DME) lancets [TRUEplus Lancets] 33 gauge misc See Rx Instructions .Route Qty: 100 11RF Rx Instructions: 4x daily metformin 1,000 mg Tablet 1,000 mg PO BID ferrous sulfate 325 mg (65 mg iron) tablet 325 mg PO BID Qty: 60 0RF clopidogrel [Plavix] 75 mg tablet 75 mg PO DAILY Qty: 30 5RF clonidine 0.2 mg/24 hr patch weekly 1 patch transdermal QWEEK Qty: 4 0RF docusate sodium [Colace] 100 mg capsule 100 mg PO BID PRN (Reason: Constipation) Qty: 14 0RF polyethylene glycol 3350 [Miralax] 17 gram/dose powder 17 g PO DAILY Qty: 238 0RF amlodipine 10 mg Tablet 10 mg PO BEDTIME pantoprazole [Protonix] 40 mg tablet,delayed release (DR/EC) 40 mg PO BID@0630,1630 lidocaine [Lidoderm] 5 % Adhesive Patch,Medicated 1 patch TOPICAL DAILY fluticasone propionate 50 mcg/actuation [place],Suspension 2 spray INTRANASAL DAILY acetaminophen [Arthritis Pain Relief (acetam)] 650 mg Tablet Extended Release 650 mg PO Q8H PRN (Reason: Pain (Scale Score 1-3)) fluticasone propionate [Flovent HFA] 110 mcg/actuation Hfa Aerosol Inhaler 2 puff INHALATION BID albuterol sulfate 2.5 mg /3 mL (0.083 %) Solution For Nebulization 2.5 mg inhalation Q4H PRN (Reason: shortness of breath/wheeze) Qty: 100 0RF oxycodone-acetaminophen 7.5-325 mg tablet 1 tab PO Q6H PRN (Reason: severe pain) amitriptyline 50 mg tablet 50 mg PO BEDTIME hydralazine 50 mg tablet 50 mg PO TID Qty: 3 0RF cyclobenzaprine 10 mg tablet 10 mg PO Q8H PRN (Reason: Muscle Spasm) metoclopramide HCl [Reglan] 10 mg Tablet 10 mg PO Q6H PRN (Reason: Nausea) oxycodone-acetaminophen [Percocet] 5-325 mg tablet 1 tab PO Q8H PRN (Reason: pain) Qty: 10 0RF Rx Instructions: Partial Fill upon patient request. carvedilol [Coreg] 25 mg tablet 25 mg PO BID Rx Instructions: must administer with a meal/food multivitamin Tablet 1 tab PO DAILY lisinopril 40 mg tablet 40 mg PO DAILY gabapentin 800 mg tablet 800 mg PO TID aspirin [Adult Low Dose Aspirin] 81 mg tablet,delayed release (DR/EC) 81 mg PO DAILY escitalopram oxalate [Lexapro] 20 mg tablet 20 mg PO DAILY mirtazapine 45 mg tablet 45 mg PO BEDTIME atorvastatin [Lipitor] 80 mg tablet 80 mg PO BEDTIME Tresiba FlexTouch U-100 100 unit/mL (3 mL) insulin pen 5 unit subcut DAILY (DME) FreeStyle Lite Strips Strip See Rx Instructions Not Applicable QID Qty: 10 Rx Instructions: As directed clotrimazole 1 % cream 1 appl topical BID
[2022-12-02 05:33] VITALS: BP 204/71; PULSE 66; RESP 15; TEMP 36.7; O2SAT 96
[2022-12-02 05:39] VITALS: BP 202/76
[2022-12-02] MEDS: hydrALAZINE HCl 50 MG TABLET PO (05:47)
[2022-12-02 05:53] VITALS: BP 204/71; PULSE 66; RESP 20; O2SAT 98
== END 2022-12-02 05:55 | disposition home or self-care (01) ==
PROVIDERS: Emergency Provider Internal Medicine; PCP Family Medicine
DX: G43.909 Migraine, unspecified, not intractable, without status migrainosus (principal); I10 Essential (primary) hypertension; F17.210 Nicotine dependence, cigarettes, uncomplicated; Z71.6 Tobacco abuse counseling; Z79.899 Other long term (current) drug therapy
CPT/HCPCS: 70450; 99284

== ENCOUNTER 2022-12-06 18:29 | Outpatient (REF) | payer MEDICAID, SELFPAY | END 2022-12-06 18:30 | disposition home or self-care (01) | LOC: HO.HOSX 18:29 | PROVIDERS: Visit Provider Physician Assistant | DX: Z13.89 Encounter for screening for other disorder (principal) ==

== ENCOUNTER 2022-12-13 10:42 | Outpatient (AMB) | payer MEDICAID, SELFPAY ==
--- NOTE | 2022-12-13 10:44 | MHC.OFFVIS ---
Intake Vital Signs 12/13/22 10:47 Height 5 ft Weight 139 lb BMI 27.1 Intake Visit Reasons: 2 week follow up right carotid endarterectomy Intake Note: Pt here for 2 week FU right carotid endarterectomy on 11/28/22 Pt states that shes doing ok after her procedure but that she is still in pain. Pt says hat she is on oxycodone for the pain and it helps but dont take it away completely [employer] Patroller Required: Yes Accompanied by: Daughter Allergies latex [LATEX] Allergy (Severe, Verified 12/13/22 10:47) RASH naproxen [From NAPROSYN] Adverse Reaction (Intermediate, Verified 12/13/22 10:47) TACHYCARDIA HPI 2 week follow up right carotid endarterectomy HPI Details Pleasant 61-year-old female status post right carotid endarterectomy. Reports that she is doing fairly well postoperatively. She did have some pain control issues but has been on a pain contract. She has had no postoperative issues. She does continue to smoke nearly pack a day of cigarettes which is down from her preoperative 2 packs per day. [facility] Medical History HTN (hypertension) Vitamin D deficiency HLD (hyperlipidemia) T2DM (type 2 diabetes mellitus) H. pylori infection CAD (coronary artery disease) Cyst (solitary) of breast Kidney calculi Arthritis Asthma HTN (hypertension) Diabetes Surgical History S/P aortogram History of esophagogastroduodenoscopy (EGD) Hx of colonoscopy History of breast surgery History of cardiac cath Family History Mother Diabetes Liver cancer Social History Household Members: Children and Friend(s) Household Members Other:: friend and adult son Housing: Apartment Are you a primary respiratory care practitioner to a significant other at home: No Do you presently have visiting nurse or other home services: No Alcohol intake: never Patient Tobacco Use Status: Current everyday Tobacco user Tobacco use type: Cigarette Cigarette Packs Per Day: 1 Cigarettes Per Day: 20.0 Years Smoked: 40 e-Cigarette/Vaping Use: Never Used Second Hand Smoke Exposure: Yes service: No Current occupational status: unemployed and disabled Review of Systems Const All systems reviewed & are unremarkable except as noted in HPI and below Reports no additional complaints ENT Reports Normal hearing present Card Denies chest pain, Denies chest pain at rest, Denies chest pain with activity and Denies pedal edema Resp Denies cough GI Denies abdominal pain Musc Denies abnormal gait, Denies muscle cramps and Denies radiating pain into limb Skin/Breast Denies skin ulcer and Denies wounds Neuro Reports Normal hearing present and Denies abnormal gait Psych Reports no additional complaints Physical Exam Vital Signs: BMI result Body Mass Index 27.1 Const General: cooperative, healthy appearing and comfortable Orientation/consciousness: oriented to person, oriented to place and oriented to time HEENT Head: Yes normal to inspection Neck Neck: Yes normal visual inspection Carotids: no bruits Chest Chest palpation & inspection: normal inspection of the chest Resp Effort & Inspection: normal respiratory effort and able to speak in complete sentences Auscultation: clear to auscultation bilaterally, no crackles, no rales, no rhonchi and no wheezes Cardio Rate: regular rate Rhythm: regular rhythm Heart sounds: S1 normal heart sound present and S2 normal heart sound present Bruits: no carotid bruits Peripheral pulses: Peripheral pulses 2+ throughout GI Inspection: Yes normal to inspection Skin Other: Right neck incision healing well Wounds: no wounds Hair: normal Neuro General: oriented to person, oriented to place and oriented to time Cranial nerves: Yes CN's II-XII intact bilaterally and Yes Normal hearing present Cognition (Neuro): normal cognition Motor exam (neuro): 5/5 motor strength present throughout Extrem Other: venous exam: No significant superficial varicosities or spider telangiectasias, minimal edema General: No clubbing, No cyanosis and No edema Psych Appearance: grossly normal Mental Status: mental status grossly normal Speech and movement: Normal speech and movement present Assessment & Plan Assessment & Plan (1) PAD (peripheral artery disease): Comment: 05/18/2020 - left fem-pop bypass 12/02/2020 - left angioplasty profundus femoris and popliteal inclusive is of distal anastomosis 05/17/2021 - right common iliac stent 04/13/2022 diagnostic angiogram Code(s): I73.9 - Peripheral vascular disease, unspecified (2) Bilateral carotid artery stenosis: Comment: 11/28/2022 - right carotid endarterectomy Code(s): I65.23 - Occlusion and stenosis of bilateral carotid arteries Plan: In short patient is doing well status post carotid endarterectomy. We did discuss routine risk factor modification including smoking cessation. Patient will follow up with us in approximately 3 months time with surveillance ultrasound. Thank you for allowing us to assist in her care. If there are any questions or concerns please do not hesitate to contact us. Orders: Orders US carotid duplex BI 3 Months I65.23 - Occlusion and stenosis of bilateral carotid arteries Coding Level of Care Code Est Pt Level 4 (43646) Diagnoses PAD (peripheral artery disease) I73.9 Bilateral carotid artery stenosis I65.23
[2022-12-13 10:47] VITALS: BMI 27.1
== END 2022-12-13 10:58 | disposition home or self-care (01) ==
PROVIDERS: PCP Family Medicine; Visit Provider Surgery Vascular Surgery
DX: I73.9 Peripheral vascular disease, unspecified (principal); I65.23 Occlusion and stenosis of bilateral carotid arteries
CPT/HCPCS: 99024

== ENCOUNTER → 2022-12-13 10:42 | Outpatient (BNVA) | payer MEDICAID, SELFPAY | PROVIDERS: PCP Family Medicine; Visit Provider Surgery Vascular Surgery | DX: I73.9 Peripheral vascular disease, unspecified (principal); I65.23 Occlusion and stenosis of bilateral carotid arteries | CPT/HCPCS: 99212 ==

== ENCOUNTER 2022-12-16 19:19 | Emergency (ER) | payer MEDICAID, SELFPAY ==
--- NOTE | ~2022-12-16 | XR_ITS ---
EXAMINATION: XR CHEST CLINICAL INFORMATION: Chest pain and shortness of breath. COMPARISON: Chest radiograph 11/18/2022. TECHNIQUE: 2 views of the chest were obtained. FINDINGS: Unchanged appearance of the cardiomediastinal silhouette. Redemonstration of lingular calcified granuloma. No new focal airspace densities, pleural effusions or pneumothorax. No overt pulmonary edema. No acute osseous findings. Visualized upper abdomen is within normal limits. XR/XR chest 2V IMPRESSION: No acute cardiopulmonary findings.
--- NOTE | ~2022-12-16 | CT_ITS ---
EXAMINATION: CT HEAD WITHOUT CONTRAST CLINICAL INFORMATION: Headache, hypertension, evaluate for subarachnoid bleed. COMPARISON: CT head 12/02/2022. TECHNIQUE: Contiguous axial imaging was performed from the skull base to vertex without intravenous administration of contrast. This CT examination was performed using dose optimization techniques as appropriate, variously including the following: *Automated exposure control *Adjustment of mA and/or kV according to patient size (this includes techniques or standardized protocols for targeted exams where dose is matched to indication/reason for exam; i.e. extremities or head) *Use of iterative reconstruction technique DLP: 567 mGy-cm FINDINGS: There is no evidence of acute intracranial hemorrhage or edematous territorial infarction. A few foci of hypoattenuation in the periventricular and deep white matter are consistent with mild microangiopathy. Kelly-white matter differentiation is preserved. Proportional prominence of the ventricles and sulcal spaces. No evidence for obstructive hydrocephalus. Stable subtle mineralization of the bilateral basal ganglia. No abnormal mass effect or midline shift. No extra-axial fluid collections. No acute soft tissue or osseous abnormalities. Partially opacified bilateral ethmoid air cells. Mild mucosal thickening of the maxillary sinuses Small left mastoid effusion. Remaining paranasal sinuses, middle ear cavities and right mastoid are clear. CT/CT head/brain wo IV con IMPRESSION: No evidence of acute intracranial hemorrhage or edematous territorial infarction.
[2022-12-16 20:00] VITALS: BP 229/94; PULSE 104; RESP 19; TEMP 36.4; O2SAT 98; BMI 26.2
--- NOTE | 2022-12-16 20:02 | ED.GENADULT ---
HPI - General Adult General Chief complaint: General Medical Stated complaint: recent surgery, high blood pressure Time Seen by Provider: 12/16/22 21:21 Source: patient Mode of arrival: ambulatory Limitations: no limitations History of Present Illness HPI narrative: Patient is status post right carotid endarterectomy 11/28/22 with history of hypertension diabetes and migraine headaches come here for headache since 19:00 generalized headache similar to that in the past when she gets migraine headache with nausea and light sensitivity according to her she took her medication as scheduled for high blood pressure but blood pressure was elevated at home was 242/137 on arrival in the ER was 229/94 with pulse rate of 104 recheck blood pressure was 215/83 patient denies any weakness fever/vomiting Related Data Home Medications Medication Instructions Recorded Confirmed metformin 1,000 mg tablet 1,000 mg PO BID 12/22/19 11/23/22 aspirin 81 mg tablet,delayed 81 mg PO DAILY 01/02/20 11/23/22 release (Adult Low Dose Aspirin) atorvastatin 80 mg tablet (Lipitor) 80 mg PO BEDTIME 01/02/20 11/23/22 carvedilol 25 mg tablet (Coreg) 25 mg PO BID 01/02/20 11/23/22 escitalopram oxalate 20 mg tablet 20 mg PO DAILY 01/02/20 11/23/22 (Lexapro) gabapentin 800 mg tablet 800 mg PO TID 01/02/20 11/23/22 lisinopril 40 mg tablet 40 mg PO DAILY 01/02/20 11/23/22 mirtazapine 45 mg tablet 45 mg PO BEDTIME 01/02/20 11/23/22 multivitamin 1 tab PO DAILY 01/02/20 11/23/22 acetaminophen 650 mg 650 mg PO Q8H PRN Pain (Scale 01/16/21 11/23/22 tablet,extended release (Arthritis Score 1-3) Pain Relief (acetaminophen) ER) amlodipine 10 mg tablet 10 mg PO BEDTIME 01/16/21 11/23/22 fluticasone propionate 110 2 puff inhalation BID 01/16/21 11/23/22 mcg/actuation HFA aerosol inhaler (Flovent HFA) fluticasone propionate 50 2 spray intranasal DAILY 01/16/21 11/23/22 mcg/actuation nasal spray,suspension lidocaine 5 % topical patch 1 patch topical DAILY 01/16/21 11/23/22 (Lidoderm) pantoprazole 40 mg tablet,delayed 40 mg PO BID@0630,1630 01/16/21 11/23/22 release (Protonix) blood sugar diagnostic (FreeStyle #10 ea 03/30/21 10/03/22 Lite Strips) clotrimazole 1 % topical cream 1 appl topical BID 03/30/21 11/23/22 oxycodone-acetaminophen 7.5 mg-325 1 tab PO Q6H PRN severe pain 05/07/21 11/23/22 mg tablet insulin degludec 100 unit/mL (3 5 unit subcut DAILY 10/03/22 11/23/22 mL) subcutaneous pen (Tresiba FlexTouch U-100 insulin) amitriptyline 50 mg tablet 50 mg PO BEDTIME 11/07/22 11/23/22 cyclobenzaprine 10 mg tablet 10 mg PO Q8H PRN Muscle Spasm 11/23/22 11/23/22 metoclopramide HCl 10 mg tablet 10 mg PO Q6H PRN Nausea 11/23/22 11/23/22 (Reglan) Previous Rx's Medication Instructions Recorded ferrous sulfate 325 mg (65 mg 325 mg PO BID #60 tabs 05/24/20 iron) tablet hydrochlorothiazide 25 mg tablet 25 mg PO DAILY #30 tabs 08/13/20 clopidogrel 75 mg tablet (Plavix) 75 mg PO DAILY #30 tabs 12/02/20 pioglitazone 15 mg tablet 15 mg PO DAILY 30 days #30 tabs 12/02/20 albuterol sulfate 2.5 mg/3 mL 2.5 mg (3 mL) inhalation Q4H PRN 01/19/21 (0.083 %) solution for nebulization shortness of breath/wheeze #100 mL lancets 33 gauge (TRUEplus Lancets) #100 ea 07/26/21 hydralazine 50 mg tablet 50 mg PO TID #3 tabs 09/21/21 clonidine 0.2 mg/24 hr weekly 1 patch transdermal QWEEK #4 ea 03/09/22 transdermal patch docusate sodium 100 mg capsule 100 mg PO BID PRN Constipation #14 04/17/22 (Colace) caps polyethylene glycol 3350 17 17 g PO DAILY #238 grams 04/17/22 gram/dose oral powder (Miralax) oxycodone-acetaminophen 5 mg-325 1 tab PO Q8H PRN pain #10 tabs 11/29/22 mg tablet (Percocet) uvcggndmgg-ygfnmanzduohg-grceripf 1 tab PO Q6H PRN haeadace #20 tabs 12/17/22 50 mg-325 mg-40 mg tablet Allergies Allergy/AdvReac Type Severity Reaction Status Date / Time latex [LATEX] Allergy Severe RASH Verified 12/13/22 10:47 naproxen [From NAPROSYN] AdvReac Intermediate TACHYCARDIA Verified 12/13/22 10:47 Review of Systems Review of Systems: Yes all other systems are reviewed and are negative [facility] Past Medical History Medical History HTN (hypertension) Vitamin D deficiency HLD (hyperlipidemia) T2DM (type 2 diabetes mellitus) H. pylori infection CAD (coronary artery disease) Cyst (solitary) of breast Kidney calculi Arthritis Asthma HTN (hypertension) Diabetes Surgical History S/P aortogram History of esophagogastroduodenoscopy (EGD) Hx of colonoscopy History of breast surgery History of cardiac cath Family History Family History Mother Diabetes Liver cancer Social History Social History Household Members: Children and Friend(s) Household Members Other:: friend and adult son Housing: Apartment Are you a primary childcare center administrator to a significant other at home: No Do you presently have visiting nurse or other home services: No Alcohol intake: never Patient Tobacco Use Status: Current everyday Tobacco user Tobacco use type: Cigarette Cigarette Packs Per Day: 1 Cigarettes Per Day: 20.0 Years Smoked: 40 Smoked in Last 30 Days: Yes e-Cigarette/Vaping Use: Never Used Second Hand Smoke Exposure: Yes Advance Directives: No Advance Directives Information Provided: No service: No Current occupational status: unemployed and disabled Physical Exam ED Vital Signs: Vital Signs - 24 hr 12/16/22 20:00 12/16/22 20:31 12/16/22 21:16 Temperature 97.6 F Pulse Rate 104 H 84 82 Respiratory Rate 19 19 Blood Pressure 229/94 H 212/80 H 149/57 H Pulse Oximetry 98 97 Oxygen Delivery Method Room Air Room Air 12/16/22 21:51 12/16/22 22:19 12/16/22 23:05 Temperature 97.8 F Pulse Rate 92 83 87 Respiratory Rate 15 15 Blood Pressure 215/83 H 172/66 H 139/45 L Pulse Oximetry 98 Oxygen Delivery Method Room Air Room Air BMI result Body Mass Index 26.2 Appearance: Alert. Oriented X3. No acute distress. Eyes: PERRLA, No Nystagmus ENT: Pharynx normal. Oral Mucosa moist Neck: Normal inspection. Neck supple. Postop changes on the right carotid surgery with no signs of infection CVS: Normal heart rate and rhythm. Pulses normal. Respiratory: No respiratory distress. Equal air entry bilateral, no wheezing/rales/rhonchi Abdomen: Soft and nontender. Bowel sounds are present, no mass palpable, no CVA tenderness Skin: Skin warm and dry. Normal skin color. Normal skin turgor. Extremities: No lower extremity edema. No calf tenderness Neuro: Oriented X 3. No motor deficit. No sensory deficit.No cerebellar signs , cranial nerves II-XII intact Course Course Course Narrative: This is a rapid medical exam: Additional HPI, ROS, PE not included below will be deferred to primary provider. Patient is a 62-year-old [place] speaking female with recent R carotid endarectomy, HTN, HLD, T2DM, CAD, asthma presenting to the emergency department with complaint of high blood pressure, headache, pain at surgical incision site. Also complains of her body shaking. Reports a little bit of chest pain and dyspnea. States she has been taking her BP medication as prescribed but is unsure what medications she takes. Hypertensive in triage. Plan: EKG, labs, CXR Medications Administered Discontinued Medications Generic Name Dose Route Start Last Admin Trade Name Freq PRN Reason Stop Dose Admin Hydralazine HCl 10 mg 12/16/22 21:45 12/16/22 21:55 Hydralazine Hcl 20 Mg/Ml Vial IVPUSH 12/16/22 21:46 10 mg ONCE ONE Administration Protocol Morphine Sulfate 4 mg 12/16/22 21:45 12/16/22 21:55 Morphine Sulfate 4 Mg/Ml Cartridge IVPUSH 12/16/22 21:46 4 mg ONCE ONE Administration Protocol Ondansetron HCl 4 mg 12/16/22 21:45 12/16/22 21:55 Ondansetron Hcl 4 Mg/2 Ml Vial IVPUSH 12/16/22 21:46 4 mg ONCE ONE Administration Oxycodone HCl 10 mg 12/16/22 23:04 12/16/22 23:09 Oxycodone Hcl Immed Release 5 Mg Tablet PO 12/16/22 23:05 10 mg ONCE ONE Administration Medical Decision Making Medical Decision Making [facility] Narrative: Workup negative for SAH, blood pressure improved patient headache improved after pain medications likely patient has migraine headache Differential Diagnosis Differential Diagnoses: The differential diagnosis associated with the presentation includes SAH/migraine headache/hypertensive urgency Admission/Observation Consideration of admission/observation: Escalation of care including admission/observation considered Lab Data [facility] Lab Attestation statement: I reviewed the patient's lab results. 12/16/22 20:18 12/16/22 20:18 Labs: Lab Results 12/16/22 Range/Units 20:18 WBC 5.6 (4.8-10.8) X10*3/uL RBC 3.57 L D (4.20-5.50) X10*6/uL Hgb 10.4 L (12.0-16.0) g/dl Hct 32.0 L D (37.0-47.0) % MCV 89.6 (80.0-98.0) fL MCH 29.1 (27.0-33.0) pg MCHC 32.5 (31.0-35.0) g/dl RDW 13.3 (11.0-16.0) % Plt Count 345 D (160-400) X10*3/uL MPV 8.9 L (9.4-12.3) fL Immature Gran % (Auto) 0.4 (0.0-0.4) % Neut % (Auto) 63.5 (45-73) % Lymph % (Auto) 28.1 (20-40) % [place] % (Auto) 5.4 (2-11) % Eos % (Auto) 2.1 (0-4) % Baso % (Auto) 0.5 (0-2) % Lymph # (Auto) 1.6 (1.2-4.9) X10*3/uL [place] # (Auto) 0.3 (0.1-1.2) X10*3/uL Eos # (Auto) 0.1 (0.0-0.4) X10*3/uL Baso # (Auto) 0.0 (0.0-0.2) X10*3/uL Abs Immat Gran (auto) 0.02 (0.00-0.03) X10*3/uL Absolute Neuts (auto) 3.6 (2.0-8.3) x10*3/uL Absolute Nucleated RBC 0.000 (0.0-0.012) X10*3/uL Nucleated RBC % (auto) 0.0 (0.0-0.2) /100WBC PT 10.9 L (11.1-13.3) SEC INR 0.9 (0.9-1.1) Sodium 139 (135-145) mmol/L Potassium 4.7 (3.3-5.1) mmol/L Chloride 103 (96-108) mmol/L Carbon Dioxide 27 (22-29) mmol/L Anion Gap 14 (12-20) BUN 15 (9-16) mg/dL Creatinine 0.99 (0.5-1.4) mg/dL Estim Creat Clear Calc 54.9 Estimated GFR 57 Random Glucose 215 H (60-115) mg/dL Calcium 9.6 D (8.4-10.2) mg/dL Total Bilirubin 0.3 (0.0-1.0) mg/dL AST 11 (5-31) U/L ALT 6 (0-31) U/L Alkaline Phosphatase 77 (39-117) U/L Troponin I High Sens 4.5 D (<3.5-17.0) ng/L Total Protein 6.9 (6.5-8.0) g/dL Albumin 4.0 (3.5-5.0) g/dL Independent Interpretation I performed an independent interpretation of an: EKG, Plain X-Ray and CT Scan Interpretation: Normal sinus rhythm heart rate 89 beats per minute LVH no acute STT wave changes Normal chest Xray Radiology Impression Discussion of test interpretation with radiology: I have reviewed the radiologist's reading. External Record Review External record reviewed: Inpatient record Discharge Plan Discharge Clinical Impression: Headache, migraine, Hypertension Patient Disposition: Home, Self-Care Instructions: Migraine Headache (ED), Hypertension (ED) Additional Instructions: Take blood pressure medicine as prescribed Check blood pressure twice daily should be less than 135/85 Follow your PCP Medicine for headache as prescribed [place] los medicamentos para la presi?n arterial seg?n lo recetado. Controle la presi?n arterial dos veces al d?a y debe ser inferior a 135/85. Siga a weaver PCP Medicina para el dolor de omar seg?n lo prescrito Prescriptions: New lvgfakypbo-zxwjtsbkszcij-rlwb 50-325-40 mg tablet 1 tab PO Q6H PRN (Reason: haeadace) Qty: 20 0RF No Action hydrochlorothiazide 25 mg tablet 25 mg PO DAILY Qty: 30 0RF Rx Instructions: Must call to schedule a cardiology appointment for more refills - overdue pioglitazone 15 mg tablet 15 mg PO DAILY 30 Days Qty: 30 11RF (DME) lancets [TRUEplus Lancets] 33 gauge misc See Rx Instructions .Route Qty: 100 11RF Rx Instructions: 4x daily metformin 1,000 mg Tablet 1,000 mg PO BID ferrous sulfate 325 mg (65 mg iron) tablet 325 mg PO BID Qty: 60 0RF clopidogrel [Plavix] 75 mg tablet 75 mg PO DAILY Qty: 30 5RF clonidine 0.2 mg/24 hr patch weekly 1 patch transdermal QWEEK Qty: 4 0RF docusate sodium [Colace] 100 mg capsule 100 mg PO BID PRN (Reason: Constipation) Qty: 14 0RF polyethylene glycol 3350 [Miralax] 17 gram/dose powder 17 g PO DAILY Qty: 238 0RF amlodipine 10 mg Tablet 10 mg PO BEDTIME pantoprazole [Protonix] 40 mg tablet,delayed release (DR/EC) 40 mg PO BID@0630,1630 lidocaine [Lidoderm] 5 % Adhesive Patch,Medicated 1 patch TOPICAL DAILY fluticasone propionate 50 mcg/actuation [place],Suspension 2 spray INTRANASAL DAILY acetaminophen [Arthritis Pain Relief (acetam)] 650 mg Tablet Extended Release 650 mg PO Q8H PRN (Reason: Pain (Scale Score 1-3)) fluticasone propionate [Flovent HFA] 110 mcg/actuation Hfa Aerosol Inhaler 2 puff INHALATION BID albuterol sulfate 2.5 mg /3 mL (0.083 %) Solution For Nebulization 2.5 mg inhalation Q4H PRN (Reason: shortness of breath/wheeze) Qty: 100 0RF oxycodone-acetaminophen 7.5-325 mg tablet 1 tab PO Q6H PRN (Reason: severe pain) amitriptyline 50 mg tablet 50 mg PO BEDTIME hydralazine 50 mg tablet 50 mg PO TID Qty: 3 0RF cyclobenzaprine 10 mg tablet 10 mg PO Q8H PRN (Reason: Muscle Spasm) metoclopramide HCl [Reglan] 10 mg Tablet 10 mg PO Q6H PRN (Reason: Nausea) oxycodone-acetaminophen [Percocet] 5-325 mg tablet 1 tab PO Q8H PRN (Reason: pain) Qty: 10 0RF Rx Instructions: Partial Fill upon patient request. carvedilol [Coreg] 25 mg tablet 25 mg PO BID Rx Instructions: must administer with a meal/food multivitamin Tablet 1 tab PO DAILY lisinopril 40 mg tablet 40 mg PO DAILY gabapentin 800 mg tablet 800 mg PO TID aspirin [Adult Low Dose Aspirin] 81 mg tablet,delayed release (DR/EC) 81 mg PO DAILY escitalopram oxalate [Lexapro] 20 mg tablet 20 mg PO DAILY mirtazapine 45 mg tablet 45 mg PO BEDTIME atorvastatin [Lipitor] 80 mg tablet 80 mg PO BEDTIME Tresiba FlexTouch U-100 100 unit/mL (3 mL) insulin pen 5 unit subcut DAILY (DME) FreeStyle Lite Strips Strip See Rx Instructions Not Applicable QID Qty: 10 Rx Instructions: As directed clotrimazole 1 % cream 1 appl topical BID Interventions: ED Discharge Assessment Last Done: 12/17/22 01:05 Discharge Date/Time: 12/17/22 01:06 Print Language: [place]
--- NOTE | 2022-12-16 20:06 | ECG_ITS ---
Test Reason : HIGH BP Blood Pressure : / mmHG Vent. Rate : 089 BPM Atrial Rate : 089 BPM P-R Int : 120 ms QRS Dur : 078 ms QT Int : 360 ms P-R-T Axes : 041 -09 123 degrees QTc Int : 438 ms Normal sinus rhythm Left ventricular hypertrophy with repolarization abnormality ( R in aVL , [place] product ) Nonspecific ST abnormality Lateral leads Abnormal ECG When compared with ECG of 28-NOV-2022 14:26, Vent. rate has increased BY [address] now depressed in Lateral leads T wave inversion no longer evident in Lateral leads Referred By: Keara Zhu Electronically Signed By:SOPHIA STEWARD MD
[2022-12-16 20:26] LABS: MANUAL DIFF FLAG NO
[2022-12-16 20:31] VITALS: BP 212/80; PULSE 84; RESP 19; O2SAT 97
--- NOTE | 2022-12-16 20:38 | PC.NURSE ---
technical research scientist Isabel used for information
[2022-12-16 20:39] LABS: Basophils Percent Auto 0.5 % (0-2); Eosinophils Absolute Auto 0.1 X10*3/uL (0.0-0.4); Eosinophils Percent Auto 2.1 % (0-4); Hemoglobin 10.4 g/dl (12.0-16.0); Imm Gran Abs Auto 0.02 X10*3/uL (0.00-0.03); Imm Gran Pct Auto 0.4 % (0.0-0.4); Lymphocytes Absolute Auto 1.6 X10*3/uL (1.2-4.9); Lymphocytes Percent Auto 28.1 % (20-40); Mean Corpuscular HGB Conc 32.5 g/dl (31.0-35.0); Mean Corpuscular Hemoglobin 29.1 pg (27.0-33.0); Mean Corpuscular Volume 89.6 fL (80.0-98.0); Mean Platelet Volume 8.9 fL (9.4-12.3); Monocytes Absolute Auto 0.3 X10*3/uL (0.1-1.2); Monocytes Percent Auto 5.4 % (2-11); Neutrophils Absolute Auto 3.6 x10*3/uL (2.0-8.3); Neutrophils Percent Auto 63.5 % (45-73); Platelet Count 345 X10*3/uL (160-400); Red Blood Count 3.57 X10*6/uL (4.20-5.50); Red Cell Distribution Width 13.3 % (11.0-16.0); White Blood Count 5.6 X10*3/uL (4.8-10.8)
[2022-12-16 20:46] LABS: INTERNATIONAL NORM RATIO 0.9 (0.9-1.1); Prothrombin Time 10.9 SEC (11.1-13.3)
[2022-12-16 20:54] LABS: Alanine Aminotransferase 6 U/L (0-31); Alkaline Phosphatase 77 U/L (39-117); Anion Gap 14 (12-20); Aspartate Amino Transferase 11 U/L (5-31); Bilirubin Total 0.3 mg/dL (0.0-1.0); Blood Urea Nitrogen 15 mg/dL (9-16); Calcium 9.6 mg/dL (8.4-10.2); Carbon Dioxide 27 mmol/L (22-29); Chloride 103 mmol/L (96-108); Creatinine Clr Calc Pharmacy 54.9; Estimated Glomerular Filt Rate 57; Glucose Random 215 mg/dL (60-115); Potassium 4.7 mmol/L (3.3-5.1); Sodium 139 mmol/L (135-145); Total Protein 6.9 g/dL (6.5-8.0)
[2022-12-16 21:01] LABS: Troponin-I High Sensitivity 4.5 ng/L (<3.5-17.0)
[2022-12-16 21:16] VITALS: BP 149/57; PULSE 82
[2022-12-16 21:51] VITALS: BP 215/83; PULSE 92
[2022-12-16] MEDS: Morphine Sulfate 4 MG/ML CARTRIDGE IVPUSH (21:55)
[2022-12-16] MEDS: hydrALAZINE HCl 20 MG/ML VIAL 10 MG IVPUSH (21:55)
[2022-12-16] MEDS: ondansetron HCL 4 MG/2 ML VIAL IVPUSH (21:55)
[2022-12-16 22:19] VITALS: BP 172/66; PULSE 83; RESP 15
[2022-12-16 23:05] VITALS: BP 139/45; PULSE 87; RESP 15; TEMP 36.6; O2SAT 98
[2022-12-16] MEDS: oxyCODONE HCl Immed Release 5 MG TABLET 10 MG PO (23:09)
== END 2022-12-17 01:06 | disposition home or self-care (01) ==
PROVIDERS: Registered Nurse Emergency; Emergency Provider Internal Medicine; PCP Family Medicine
DX: G43.909 Migraine, unspecified, not intractable, without status migrainosus (principal); I10 Essential (primary) hypertension; R94.31 Abnormal electrocardiogram [ECG] [EKG]; F17.210 Nicotine dependence, cigarettes, uncomplicated; Z71.6 Tobacco abuse counseling; Z79.899 Other long term (current) drug therapy
CPT/HCPCS: 36415; 70450; 71046; 80053; 84484; 85025; 85610; 93005; 96374; 96375; 99284; 99285; J0360; J2270; J2405

== ENCOUNTER 2022-12-24 21:13 | Emergency (ER) | payer MEDICAID, SELFPAY ==
--- NOTE | 2022-12-24 | ECG_ITS ---
Test Reason : HTN Blood Pressure : / mmHG Vent. Rate : 092 BPM Atrial Rate : 092 BPM P-R Int : 120 ms QRS Dur : 092 ms QT Int : 370 ms P-R-T Axes : 039 -09 145 degrees QTc Int : 457 ms Normal sinus rhythm Incomplete right bundle branch block Nonspecific ST abnormality Lateral leads Left ventricular hypertrophy with repolarization abnormality ( R in aVL , [place] product ) Abnormal ECG When compared with ECG of 16-DEC-2022 20:14, No significant change was found Referred By: Generic ED Physician Electronically Signed By:SOPHIA STEWARD MD
[2022-12-24 21:21] VITALS: BP 210/100; BP 211/91; PULSE 118; PULSE 93; RESP 18; TEMP 37.2; O2SAT 98; BMI 27.9
[2022-12-24 21:26] VITALS: BP 201/97
[2022-12-24 21:47] LABS: MANUAL DIFF FLAG NO
[2022-12-24 21:53] LABS: Basophils Percent Auto 0.4 % (0-2); Eosinophils Absolute Auto 0.2 X10*3/uL (0.0-0.4); Eosinophils Percent Auto 4.8 % (0-4); Hematocrit 33.1 % (37.0-47.0); Lymphocytes Absolute Auto 1.6 X10*3/uL (1.2-4.9); Lymphocytes Percent Auto 33.3 % (20-40); Mean Corpuscular HGB Conc 33.2 g/dl (31.0-35.0); Mean Corpuscular Hemoglobin 29.4 pg (27.0-33.0); Mean Corpuscular Volume 88.5 fL (80.0-98.0); Mean Platelet Volume 8.7 fL (9.4-12.3); Monocytes Absolute Auto 0.4 X10*3/uL (0.1-1.2); Monocytes Percent Auto 8.4 % (2-11); Neutrophils Absolute Auto 2.5 x10*3/uL (2.0-8.3); Neutrophils Percent Auto 53.1 % (45-73); Platelet Count 313 X10*3/uL (160-400); Red Blood Count 3.74 X10*6/uL (4.20-5.50); Red Cell Distribution Width 13.4 % (11.0-16.0); White Blood Count 4.8 X10*3/uL (4.8-10.8)
[2022-12-24 22:06] LABS: Appearance Urine Clear; Color Urine Yellow; Glucose Urine UA 500 mg/dL (Negative); Leukocyte Esterase Urine Small (1+) (Negative); Nitrite Urine Negative (Negative); PH 7.5 (5.0-9.0); UMIC TRIGGER UACC YES; Urine Blood Negative (Negative); Urine Ketones Negative (Negative); Urine Protein 100 (2+) mg/dL (Neg-Trace)
[2022-12-24 22:07] LABS: Alanine Aminotransferase 7 U/L (0-31); Albumin Level 3.9 g/dL (3.5-5.0); Alkaline Phosphatase 76 U/L (39-117); Anion Gap 14 (12-20); Aspartate Amino Transferase 11 U/L (5-31); Bilirubin Total 0.3 mg/dL (0.0-1.0); Blood Urea Nitrogen 16 mg/dL (9-16); Calcium 9.6 mg/dL (8.4-10.2); Carbon Dioxide 28 mmol/L (22-29); Chloride 102 mmol/L (96-108); Creatinine Clr Calc Pharmacy 51.2; Estimated Glomerular Filt Rate 58; Glucose Random 358 mg/dL (60-115); Potassium 4.2 mmol/L (3.3-5.1); Sodium 140 mmol/L (135-145); Total Protein 6.8 g/dL (6.5-8.0)
[2022-12-24 22:09] LABS: Troponin-I High Sensitivity 5.5 ng/L (<3.5-17.0)
[2022-12-24 22:16] LABS: Bacteria Urine None Seen (None Seen); Hyaline Casts Urine 0-2 /LPF (0-2); Squamous Epithelial Cell Urine 0-2 /HPF (0-2); UACC Culture Trigger YES; WBC Urine 0-5 /HPF (0-5)
[2022-12-24 22:24] LABS: Influenza A PCR NEGATIVE (Negative); Influenza B PCR NEGATIVE (Negative); Resp Syncy Virus RNA Qual PCR NEGATIVE (Negative); SARS COV2 PCR INHOUSE NEGATIVE (Negative)
--- NOTE | 2022-12-24 22:29 | PC.NURSE ---
this rn assumed care. pt BIBA from home reporting high blood pressure, pt reports home blood pressure reading of 220/118, upon ems arrival to home pt reported chest pain, pt given 324 of asprin and now denies chest pain. pt reports neck pain due to neck surgery on november 28. pt reports nausea and headache and reports these symptoms typically come on when pt has high blood pressure. pt normal sinus on tele 82-84. Iv established, labs and urines obtained.
[2022-12-24 23:05] VITALS: BP 196/72; PULSE 85; RESP 18; O2SAT 98
[2022-12-25 00:42] VITALS: BP 154/54; PULSE 86; RESP 21; TEMP 36.9; O2SAT 98
--- NOTE | 2022-12-25 01:25 | ED.GENADULT ---
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 Patient is concerned because she recently had surgery and patient also reports chest pain for which EMS provided her 324 mg of baby aspirin. Related Data Home Medications Medication Instructions Recorded Confirmed metformin 1,000 mg tablet 1,000 mg PO BID 12/22/19 11/23/22 aspirin 81 mg tablet,delayed 81 mg PO DAILY 01/02/20 11/23/22 release (Adult Low Dose Aspirin) atorvastatin 80 mg tablet (Lipitor) 80 mg PO BEDTIME 01/02/20 11/23/22 carvedilol 25 mg tablet (Coreg) 25 mg PO BID 01/02/20 11/23/22 escitalopram oxalate 20 mg tablet 20 mg PO DAILY 01/02/20 11/23/22 (Lexapro) gabapentin 800 mg tablet 800 mg PO TID 01/02/20 11/23/22 lisinopril 40 mg tablet 40 mg PO DAILY 01/02/20 11/23/22 mirtazapine 45 mg tablet 45 mg PO BEDTIME 01/02/20 11/23/22 multivitamin 1 tab PO DAILY 01/02/20 11/23/22 acetaminophen 650 mg 650 mg PO Q8H PRN Pain (Scale 01/16/21 11/23/22 tablet,extended release (Arthritis Score 1-3) Pain Relief (acetaminophen) ER) amlodipine 10 mg tablet 10 mg PO BEDTIME 01/16/21 11/23/22 fluticasone propionate 110 2 puff inhalation BID 01/16/21 11/23/22 mcg/actuation HFA aerosol inhaler (Flovent HFA) fluticasone propionate 50 2 spray intranasal DAILY 01/16/21 11/23/22 mcg/actuation nasal spray,suspension lidocaine 5 % topical patch 1 patch topical DAILY 01/16/21 11/23/22 (Lidoderm) pantoprazole 40 mg tablet,delayed 40 mg PO BID@0630,1630 01/16/21 11/23/22 release (Protonix) blood sugar diagnostic (FreeStyle #10 ea 03/30/21 10/03/22 Lite Strips) clotrimazole 1 % topical cream 1 appl topical BID 03/30/21 11/23/22 oxycodone-acetaminophen 7.5 mg-325 1 tab PO Q6H PRN severe pain 05/07/21 11/23/22 mg tablet insulin degludec 100 unit/mL (3 5 unit subcut DAILY 10/03/22 11/23/22 mL) subcutaneous pen (Tresiba FlexTouch U-100 insulin) amitriptyline 50 mg tablet 50 mg PO BEDTIME 11/07/22 11/23/22 cyclobenzaprine 10 mg tablet 10 mg PO Q8H PRN Muscle Spasm 11/23/22 11/23/22 metoclopramide HCl 10 mg tablet 10 mg PO Q6H PRN Nausea 11/23/22 11/23/22 (Reglan) Previous Rx's Medication Instructions Recorded ferrous sulfate 325 mg (65 mg 325 mg PO BID #60 tabs 05/24/20 iron) tablet hydrochlorothiazide 25 mg tablet 25 mg PO DAILY #30 tabs 08/13/20 clopidogrel 75 mg tablet (Plavix) 75 mg PO DAILY #30 tabs 12/02/20 pioglitazone 15 mg tablet 15 mg PO DAILY 30 days #30 tabs 12/02/20 albuterol sulfate 2.5 mg/3 mL 2.5 mg (3 mL) inhalation Q4H PRN 01/19/21 (0.083 %) solution for nebulization shortness of breath/wheeze #100 mL lancets 33 gauge (TRUEplus Lancets) #100 ea 07/26/21 hydralazine 50 mg tablet 50 mg PO TID #3 tabs 09/21/21 clonidine 0.2 mg/24 hr weekly 1 patch transdermal QWEEK #4 ea 03/09/22 transdermal patch docusate sodium 100 mg capsule 100 mg PO BID PRN Constipation #14 04/17/22 (Colace) caps polyethylene glycol 3350 17 17 g PO DAILY #238 grams 04/17/22 gram/dose oral powder (Miralax) oxycodone-acetaminophen 5 mg-325 1 tab PO Q8H PRN pain #10 tabs 11/29/22 mg tablet (Percocet) fueptsbwsf-xefogpzzcqseh-cjtzwhsx 1 tab PO Q6H PRN haeadace #20 tabs 12/17/22 50 mg-325 mg-40 mg tablet Allergies Allergy/AdvReac Type Severity Reaction Status Date / Time latex [LATEX] Allergy Severe RASH Verified 12/24/22 21:25 naproxen [From NAPROSYN] AdvReac Intermediate TACHYCARDIA Verified 12/24/22 21:25 Review of Systems Review of Systems: Pertinent positives and negatives as stated in HPI [facility] Past Medical History Source: nursing notes reviewed Medical History HTN (hypertension) Vitamin D deficiency HLD (hyperlipidemia) T2DM (type 2 diabetes mellitus) H. pylori infection CAD (coronary artery disease) Cyst (solitary) of breast Kidney calculi Arthritis Asthma HTN (hypertension) Diabetes Surgical History S/P aortogram History of esophagogastroduodenoscopy (EGD) Hx of colonoscopy History of breast surgery History of cardiac cath Family History Family History Mother Diabetes Liver cancer Social History Social History Household Members: Children and Friend(s) Household Members Other:: friend and adult son Housing: Apartment Are you a primary child care sitter to a significant other at home: No Do you presently have visiting nurse or other home services: No Alcohol intake: never Patient Tobacco Use Status: Current everyday Tobacco user Tobacco use type: Cigarette Cigarette Packs Per Day: 1 Cigarettes Per Day: 20.0 Years Smoked: 40 Smoked in Last 30 Days: Yes e-Cigarette/Vaping Use: Never Used Second Hand Smoke Exposure: Yes Use of substances other than those prescribed or required for medical reasons: No Advance Directives: No Advance Directives Information Provided: No service: No Current occupational status: unemployed and disabled Physical Exam ED Vital Signs: Vital Signs - 24 hr 12/24/22 21:21 12/24/22 21:26 12/24/22 23:05 Temperature 98.9 F Pulse Rate 93 85 Respiratory Rate 18 18 Blood Pressure 211/91 H 201/97 H 196/72 H Pulse Oximetry 98 98 Oxygen Delivery Method Room Air Room Air 12/25/22 00:42 12/25/22 02:10 Temperature 98.4 F Pulse Rate 86 93 Respiratory Rate 21 H 16 Blood Pressure 154/54 H 195/91 H Pulse Oximetry 98 97 Oxygen Delivery Method Nasal Cannula Room Air BMI result Body Mass Index 27.9 VITAL SIGNS: Reviewed. GENERAL: Well developed, well nourished, in no acute distress as patient is resting comfortably in the bed HEAD: Normocephalic/atraumatic EYES: PERRLA, EOMI EARS: Ext canals without abnormality NOSE: Nares patent bilateral OROPHARYNX: no oral lesions noted, posterior pharynx clear NECK: Supple, no adenopathy, well-healing incision to the right side of the neck, no erythema or induration LUNGS: Normal breath sounds. No adventitious sounds or accessory muscle use. SpO2<98> CARDIOVASCULAR: Regular rate and rhythm without noted murmurs, no JVD or lower extremity edema. ABDOMEN: Soft, non-tender, non-distended with bowel sounds. MUSCULOSKELETAL: No tenderness, deformities, or effusions noted on gross inspection. EXTREMITIES: No cyanosis, clubbing or edema. SKIN: Inspection of the skin reveals no rashes NEUROLOGIC: Alert and oriented x 4. Strength and sensation to light touch were grossly intact x 4, cranial nerves 2-12 are grossly intact. Medications Administered Discontinued Medications Generic Name Dose Route Start Last Admin Trade Name Freq PRN Reason Stop Dose Admin Acetaminophen 975 mg 12/25/22 00:39 12/25/22 02:11 Acetaminophen 325 Mg Tablet PO 12/25/22 00:40 975 mg ONCE ONE Administration Hydralazine HCl 75 mg 12/25/22 00:39 12/25/22 02:11 Hydralazine Hcl 50 Mg Tablet PO 12/25/22 00:40 75 mg ONCE ONE Administration Protocol Hydralazine HCl 5 mg 12/25/22 02:15 12/25/22 02:21 Hydralazine Hcl 20 Mg/Ml Vial IVPUSH 12/25/22 02:16 5 mg ONCE ONE Administration Protocol Medical Decision Making Medical Decision Making MDM Narrative: 62-year-old female with longstanding hypertensive history and on multiple antihypertensives and has missed many of these and suspect headache may be associated with her uncontrolled blood pressure. She does not have any focal findings and a incision at the right neck is consistent with endarterectomy. Patient is nonfocal and I reviewed a head CT on 12/16 for concerns headache/hypertension/subarachnoid bleed that was negative for any acute findings. I reviewed all investigations and hematologic indices are negative for leukocytosis or left shift, there is no thrombocytopenia and there is a stable normocytic anemia. Chemistry indices are negative for PATRICK there is no electrolyte or liver enzyme derangements. Patient has chronically detectable troponins and her glucose is noted to be elevated at 358 without evidence to suggest DKA or HHS. Patient was provided with her 75 mg hydralazine as well as Tylenol for the headache and repeat blood pressure is noted to be significantly improved. Signed out to Dr Ferraro - f/u BP control Differential Diagnosis Differential Diagnoses: The differential diagnosis associated with the presentation includes Please see the discussion above Admission/Observation Consideration of admission/observation: Escalation of care including admission/observation considered Please see the discussion above Lab Data MDM Lab Attestation statement: I reviewed the patient's lab results. Please see the discussion above 12/24/22 21:42 12/24/22 21:42 Labs: Lab Results 12/24/22 12/24/22 12/25/22 Range/Units 21:42 21:47 02:05 WBC 4.8 (4.8-10.8) X10*3/uL RBC 3.74 L (4.20-5.50) X10*6/uL Hgb 11.0 L (12.0-16.0) g/dl Hct 33.1 L (37.0-47.0) % MCV 88.5 (80.0-98.0) fL MCH 29.4 (27.0-33.0) pg MCHC 33.2 (31.0-35.0) g/dl RDW 13.4 (11.0-16.0) % Plt Count 313 (160-400) X10*3/uL MPV 8.7 L (9.4-12.3) fL Immature Gran % (Auto) 0.0 (0.0-0.4) % Neut % (Auto) 53.1 (45-73) % Lymph % (Auto) 33.3 (20-40) % [place] % (Auto) 8.4 (2-11) % Eos % (Auto) 4.8 H (0-4) % Baso % (Auto) 0.4 (0-2) % Lymph # (Auto) 1.6 (1.2-4.9) X10*3/uL [place] # (Auto) 0.4 (0.1-1.2) X10*3/uL Eos # (Auto) 0.2 (0.0-0.4) X10*3/uL Baso # (Auto) 0.0 (0.0-0.2) X10*3/uL Abs Immat Gran (auto) 0.00 (0.00-0.03) X10*3/uL Absolute Neuts (auto) 2.5 (2.0-8.3) x10*3/uL Absolute Nucleated RBC 0.000 (0.0-0.012) X10*3/uL Nucleated RBC % (auto) 0.0 (0.0-0.2) /100WBC Sodium 140 (135-145) mmol/L Potassium 4.2 (3.3-5.1) mmol/L Chloride 102 (96-108) mmol/L Carbon Dioxide 28 (22-29) mmol/L Anion Gap 14 (12-20) BUN 16 (9-16) mg/dL Creatinine 0.97 (0.5-1.4) mg/dL Estim Creat Clear Calc 51.2 Estimated GFR 58 POC Glucose 230 H (60-115) mg/dL Random Glucose 358 H* (60-115) mg/dL Calcium 9.6 (8.4-10.2) mg/dL Total Bilirubin 0.3 (0.0-1.0) mg/dL AST 11 (5-31) U/L ALT 7 (0-31) U/L Alkaline Phosphatase 76 (39-117) U/L Troponin I High Sens 5.5 (<3.5-17.0) ng/L Total Protein 6.8 (6.5-8.0) g/dL Albumin 3.9 (3.5-5.0) g/dL Urine Color Yellow Urine Appearance Clear Urine pH 7.5 (5.0-9.0) Ur Specific [place] 1.010 (1.005-1.025) Urine Protein 100 (2+) H (Neg-Trace) mg/dL Urine Glucose (UA) 500 H (Negative) mg/dL Urine Ketones Negative (Negative) mg/dL Urine Blood Negative (Negative) Urine Nitrite Negative (Negative) Ur Leukocyte Esterase Small (1+) H (Negative) Urine RBC 6-10 H (0-2) /HPF Urine WBC 0-5 (0-5) /HPF Ur Squamous Epith Cells 0-2 (0-2) /HPF Urine Bacteria None Seen (None Seen) Hyaline Casts 0-2 (0-2) /LPF Influenza Type A (PCR) NEGATIVE (Negative) Influenza Type B (PCR) NEGATIVE (Negative) RSV RNA Qual (PCR) NEGATIVE (Negative) SARS-CoV-2 RNA (RT-PCR) NEGATIVE (Negative) Independent Interpretation I performed an independent interpretation of an: EKG Interpretation: Normal sinus rhythm, HR-92, no STEMI, MD/QRS/QTC is within normal limits. Radiology Impression Discussion of test interpretation with radiology: I have reviewed the radiologist's reading. External Record Review External record reviewed: Outpatient record, Prior outpatient labs and Prior outpatient radiology Chronic Conditions Patient?s care impacted by: Diabetes and Hypertension Critical Care Time Critical Care Time Critical Care Time: Yes Total Critical Care Time: 30 Attestation: I personally attest to this time spent taking care of the patient. Discharge Plan Discharge Clinical Impression: Uncontrolled hypertension, Poor compliance with medication Patient Disposition: Home, Self-Care Instructions: DASH Eating Plan (ED), Hypertension (ED), Diabetic Hyperglycemia (ED) Additional Instructions: 1. Reanudar todos los medicamentos caseros seg?n lo recetado. Lealman es muy importante. Por lo dem?s, max an?lisis de hoy es negativo y presenta hallazgos preocupantes. 2. Max visita de hoy stallworth sido copiada tanto para el Dr. Aragon luis para max m?dico de atenci?n primaria. Llame a fransico consultorios el y programe jordy connor de seguimiento para analizar m?s a fondo el control de max presi?n arterial. Regrese a la james de emergencias si los s?ntomas empeoran. 1. Resume all home medications as prescribed. This is very important. Your workup today is otherwise negative for concerning findings. 2. Your visit today has been copied to both Dr. Aragon and your primary care doctor. Please call their offices on Monday and arrange for a follow-up appointment to further discuss your blood pressure control. Return to the ER for any worsening symptoms. Prescriptions: No Action hydrochlorothiazide 25 mg tablet 25 mg PO DAILY Qty: 30 0RF Rx Instructions: Must call to schedule a cardiology appointment for more refills - overdue pioglitazone 15 mg tablet 15 mg PO DAILY 30 Days Qty: 30 11RF (DME) lancets [TRUEplus Lancets] 33 gauge misc See Rx Instructions .Route Qty: 100 11RF Rx Instructions: 4x daily metformin 1,000 mg Tablet 1,000 mg PO BID ferrous sulfate 325 mg (65 mg iron) tablet 325 mg PO BID Qty: 60 0RF clopidogrel [Plavix] 75 mg tablet 75 mg PO DAILY Qty: 30 5RF clonidine 0.2 mg/24 hr patch weekly 1 patch transdermal QWEEK Qty: 4 0RF docusate sodium [Colace] 100 mg capsule 100 mg PO BID PRN (Reason: Constipation) Qty: 14 0RF polyethylene glycol 3350 [Miralax] 17 gram/dose powder 17 g PO DAILY Qty: 238 0RF amlodipine 10 mg Tablet 10 mg PO BEDTIME pantoprazole [Protonix] 40 mg tablet,delayed release (DR/EC) 40 mg PO BID@0630,1630 lidocaine [Lidoderm] 5 % Adhesive Patch,Medicated 1 patch TOPICAL DAILY fluticasone propionate 50 mcg/actuation [place],Suspension 2 spray INTRANASAL DAILY acetaminophen [Arthritis Pain Relief (acetam)] 650 mg Tablet Extended Release 650 mg PO Q8H PRN (Reason: Pain (Scale Score 1-3)) fluticasone propionate [Flovent HFA] 110 mcg/actuation Hfa Aerosol Inhaler 2 puff INHALATION BID albuterol sulfate 2.5 mg /3 mL (0.083 %) Solution For Nebulization 2.5 mg inhalation Q4H PRN (Reason: shortness of breath/wheeze) Qty: 100 0RF oxycodone-acetaminophen 7.5-325 mg tablet 1 tab PO Q6H PRN (Reason: severe pain) amitriptyline 50 mg tablet 50 mg PO BEDTIME hydralazine 50 mg tablet 50 mg PO TID Qty: 3 0RF cyclobenzaprine 10 mg tablet 10 mg PO Q8H PRN (Reason: Muscle Spasm) metoclopramide HCl [Reglan] 10 mg Tablet 10 mg PO Q6H PRN (Reason: Nausea) oxycodone-acetaminophen [Percocet] 5-325 mg tablet 1 tab PO Q8H PRN (Reason: pain) Qty: 10 0RF Rx Instructions: Partial Fill upon patient request. wpneaebefe-joddrkxirnlgt-slqf 50-325-40 mg tablet 1 tab PO Q6H PRN (Reason: haeadace) Qty: 20 0RF carvedilol [Coreg] 25 mg tablet 25 mg PO BID Rx Instructions: must administer with a meal/food multivitamin Tablet 1 tab PO DAILY lisinopril 40 mg tablet 40 mg PO DAILY gabapentin 800 mg tablet 800 mg PO TID aspirin [Adult Low Dose Aspirin] 81 mg tablet,delayed release (DR/EC) 81 mg PO DAILY escitalopram oxalate [Lexapro] 20 mg tablet 20 mg PO DAILY mirtazapine 45 mg tablet 45 mg PO BEDTIME atorvastatin [Lipitor] 80 mg tablet 80 mg PO BEDTIME Tresiba FlexTouch U-100 100 unit/mL (3 mL) insulin pen 5 unit subcut DAILY (DME) FreeStyle Lite Strips Strip See Rx Instructions Not Applicable QID Qty: 10 Rx Instructions: As directed clotrimazole 1 % cream 1 appl topical BID Referrals: Radha Jamison DO [Primary Care Provider] - Caleb Aragon MD [Physician] - Print Language: Romanian
[2022-12-25 02:09] LABS: Glucose, Whole Blood 230 mg/dL (60-115)
[2022-12-25 02:10] VITALS: BP 195/91; PULSE 93; RESP 16; O2SAT 97
[2022-12-25] MEDS: Acetaminophen 325 MG TABLET 975 MG PO (02:11)
[2022-12-25] MEDS: hydrALAZINE HCl 50 MG TABLET 75 MG PO (02:11)
[2022-12-25] MEDS: hydrALAZINE HCl 20 MG/ML VIAL 5 MG IVPUSH (02:21)
[2022-12-25 02:23] VITALS: BP 186/75; PULSE 85; RESP 14
[2022-12-25 04:22] VITALS: BP 173/71; PULSE 87; RESP 18; O2SAT 98
[2022-12-25 06:58] VITALS: BP 186/71; PULSE 89; RESP 18
== END 2022-12-25 06:59 | disposition home or self-care (01) ==
PROVIDERS: Student in an Organized Health Care Education/Training Program; Emergency Provider Emergency Medicine; PCP Family Medicine
DX: I10 Essential (primary) hypertension (principal); R07.9 Chest pain, unspecified; Z20.822 Contact with and (suspected) exposure to COVID-19; Z20.828 Contact with and (suspected) exposure to other viral communicable diseases; E11.9 Type 2 diabetes mellitus without complications; E78.5 Hyperlipidemia, unspecified; F17.210 Nicotine dependence, cigarettes, uncomplicated; Z91.148 Patient's other noncompliance with medication regimen for other reason
CPT/HCPCS: 0241U; 80053; 81001; 82947; 84484; 85025; 87086; 93005; 96374; 99284; 99285; J0360

== ENCOUNTER 2023-03-24 15:03 | Outpatient (REF) | payer MEDICAID, SELFPAY ==
--- NOTE | ~2023-03-24 | US_ITS ---
EXAMINATION: US EXTRACRANIAL CAROTID DUPLEX, BILATERAL CLINICAL INFORMATION: Carotid artery stenosis. Right carotid endarterectomy 11/05 COMPARISON: Carotid ultrasound 09/27/2022. TECHNIQUE: Real-time ultrasound and Doppler techniques (integrating B-mode 2-D vascular images, Doppler spectral analysis and color-flow Doppler imaging) were utilized to interrogate the extracranial carotid arteries, the vertebral arteries and proximal subclavian arteries bilaterally. The degree of stenosis is determined by criteria similar to NASCET. FINDINGS: Right Side: 1. There is no atherosclerotic plaque seen in the bifurcation/proximal ICA region. 2. The common carotid artery PSV proximally is 84 cm/s and distally 174 cm/s. 3. The proximal internal carotid artery velocities are 125 cm/s systolic and 38 cm/s diastolic. 4. The proximal external carotid artery PSV is 342 cm/s. 5. The vertebral artery shows antegrade flow. 6. The subclavian artery waveforms are normal. Left Side: 1. There is moderate atherosclerotic plaque seen in the bifurcation/proximal ICA region. 2. The common carotid artery PSV proximally is 96 cm/s and distally 137 cm/s. 3. The proximal internal carotid artery velocities are 268 cm/s systolic and 94 cm/s diastolic. 4. The proximal external carotid artery PSV is 273 cm/s. 5. The vertebral artery shows antegrade flow. 6. The subclavian artery waveforms are normal. US/US carotid duplex BI IMPRESSION: 1. RIGHT: Significant improvement compared to preoperative study. No visible atherosclerosis or stenosis of the cervical internal carotid artery demonstrated. 2. LEFT: Moderate, hemodynamically significant stenosis of the proximal left internal carotid artery corresponding to a 50-79% stenosis by velocity criteria.
== END 2023-03-24 15:04 | disposition home or self-care (01) ==
LOC: HO.US 15:03
PROVIDERS: PCP Family Medicine; Visit Provider Surgery Vascular Surgery
DX: I65.23 Occlusion and stenosis of bilateral carotid arteries (principal)
CPT/HCPCS: 93880

== ENCOUNTER 2023-04-13 11:17 | Outpatient (AMB) | payer MEDICAID, SELFPAY ==
--- NOTE | 2023-04-13 11:21 | MHC.OFFVIS ---
Intake Vital Signs 04/13/23 11:29 04/13/23 11:30 Height 5 ft 1 in BP 148/68 H 120/70 Blood Pressure Location Rt brachial Lt brachial Position Sitting Sitting Intake Visit Reasons: Follow Up 03/24 Carotid Intake Note: Patient presents for follow up 03/24/23 Carotid. Patient states she has pain under incision site , feels a ball . Daughter states about a week ago she had slurred speech but patient refused to go to ER. Accompanied by: Daughter Allergies latex [LATEX] Allergy (Severe, Verified 04/13/23 11:26) RASH naproxen [From NAPROSYN] Adverse Reaction (Intermediate, Verified 04/13/23 11:26) TACHYCARDIA HPI Follow Up 03/24 Carotid HPI Details Very pleasant 62-year-old female presents for follow-up regarding surveillance follow-up for her carotids. She has had no other interval issues. Reports she is doing fairly well aside from incisional discomfort. She continues to smoke about a pack per day. Upon discussion with her she is able to ambulate about a half a block. She now presents for routine follow-up. [facility] Medical History HTN (hypertension) Vitamin D deficiency HLD (hyperlipidemia) T2DM (type 2 diabetes mellitus) H. pylori infection CAD (coronary artery disease) Cyst (solitary) of breast Kidney calculi Arthritis Asthma HTN (hypertension) Diabetes Surgical History S/P aortogram History of esophagogastroduodenoscopy (EGD) Hx of colonoscopy History of breast surgery History of cardiac cath Family History Mother Diabetes Liver cancer Social History Household Members: Children and Friend(s) Household Members Other:: friend and adult son Housing: Apartment Are you a primary special needs child caregiver to a significant other at home: No Do you presently have visiting nurse or other home services: No Alcohol intake: never Comment: pt sleeping Patient Tobacco Use Status: Current everyday Tobacco user Tobacco use type: Cigarette Cigarette Packs Per Day: 1 Cigarettes Per Day: 20.0 Years Smoked: 40 e-Cigarette/Vaping Use: Never Used Second Hand Smoke Exposure: Yes service: No Current occupational status: unemployed and disabled Review of Systems Const All systems reviewed & are unremarkable except as noted in HPI and below Reports no additional complaints ENT Reports Normal hearing present Card Denies chest pain, Denies chest pain at rest, Denies chest pain with activity and Denies pedal edema Resp Denies cough GI Denies abdominal pain Musc Denies abnormal gait, Denies muscle cramps and Denies radiating pain into limb Skin/Breast Denies skin ulcer and Denies wounds Neuro Reports Normal hearing present and Denies abnormal gait Psych Reports no additional complaints Physical Exam Vital Signs: Last Vital Signs BP 120/70 04/13/23 11:30 Const General: cooperative, healthy appearing and comfortable Orientation/consciousness: oriented to person, oriented to place and oriented to time HEENT Head: Yes normal to inspection Neck Neck: Yes normal visual inspection Carotids: no bruits Chest Chest palpation & inspection: normal inspection of the chest Resp Effort & Inspection: normal respiratory effort and able to speak in complete sentences Auscultation: clear to auscultation bilaterally, no crackles, no rales, no rhonchi and no wheezes Cardio Rate: regular rate Rhythm: regular rhythm Heart sounds: S1 normal heart sound present and S2 normal heart sound present Bruits: no carotid bruits Peripheral pulses: Peripheral pulses 2+ throughout GI Inspection: Yes normal to inspection Skin Wounds: no wounds Hair: normal Neuro General: oriented to person, oriented to place and oriented to time Cranial nerves: Yes CN's II-XII intact bilaterally and Yes Normal hearing present Cognition (Neuro): normal cognition Motor exam (neuro): 5/5 motor strength present throughout Extrem Other: venous exam: No significant superficial varicosities or spider telangiectasias, minimal edema General: No clubbing, No cyanosis and No edema Psych Appearance: grossly normal Mental Status: mental status grossly normal Speech and movement: Normal speech and movement present Results Reviewed Results Reviewed: Carotid testing dated 03/24/2023 demonstrates right-sided 0-49 left side 50-79% with a peak systolic velocity of 268. Assessment & Plan Assessment & Plan (1) Bilateral carotid artery stenosis: Comment: 11/28/2022 - right carotid endarterectomy Code(s): I65.23 - Occlusion and stenosis of bilateral carotid arteries Plan: In short patient appears to be doing well from her right carotid endarterectomy. We have reviewed signs and symptoms of a stroke. We also discussed risk factor modification inclusive a healthy diet low in cholesterol. The patient will follow up with us with surveillance ultrasound of the carotids six-month. Should there be any changes or signs or symptoms of a stroke we will be happy to see them back sooner. Thank you for allowing us to participate in this patient's care. If there are any questions or concerns please do not hesitate to contact us. (2) PAD (peripheral artery disease): Comment: 05/18/2020 - left fem-pop bypass 12/02/2020 - left angioplasty profundus femoris and popliteal inclusive is of distal anastomosis 05/17/2021 - right common iliac stent 04/13/2022 diagnostic angiogram Code(s): I73.9 - Peripheral vascular disease, unspecified Plan: In short patient has stable claudication. I did review the pathophysiology of peripheral vascular disease with the patient. In addition we did discuss routine conservative measures including a healthy diet and the importance of exercise and ambulation. We did discuss risk factor modification. The patient will continue to to follow-up with surveillance follow-up in approximately 6 months. Thank you for allowing us to participate in this patient's care. If there are any questions or concerns please do not hesitate to contact us. Orders: Orders US arterial duplex LE BI 6 Months I73.9 - Peripheral vascular disease, unspecified US carotid duplex BI 6 Months I65.23 - Occlusion and stenosis of bilateral carotid arteries Coding Level of Care Code Est Pt Level 4 (24990) Diagnoses Bilateral carotid artery stenosis I65.23 PAD (peripheral artery disease) I73.9
[2023-04-13 11:29] VITALS: BP 148/68
[2023-04-13 11:30] VITALS: BP 120/70
== END 2023-04-13 11:39 | disposition home or self-care (01) ==
LOC: HO.HVS 11:18
PROVIDERS: PCP Family Medicine; Visit Provider Surgery Vascular Surgery
DX: I65.23 Occlusion and stenosis of bilateral carotid arteries (principal); I73.9 Peripheral vascular disease, unspecified
CPT/HCPCS: 99213

== ENCOUNTER → 2023-04-13 11:17 | Outpatient (BNVA) | payer MEDICAID, SELFPAY | PROVIDERS: PCP Family Medicine; Visit Provider Surgery Vascular Surgery | DX: I65.23 Occlusion and stenosis of bilateral carotid arteries (principal); I73.9 Peripheral vascular disease, unspecified | CPT/HCPCS: 99212 ==

== ENCOUNTER 2023-05-15 08:10 | Outpatient (REF) | payer MEDICAID, SELFPAY ==
[2023-05-15 08:44] LABS: Hematocrit 35.5 % (37.0-47.0); Hemoglobin 11.6 g/dl (12.0-16.0); Mean Corpuscular HGB Conc 32.7 g/dl (31.0-35.0); Mean Corpuscular Hemoglobin 29.2 pg (27.0-33.0); Mean Corpuscular Volume 89.4 fL (80.0-98.0); Mean Platelet Volume 9.1 fL (9.4-12.3); Platelet Count 292 X10*3/uL (160-400); Red Blood Count 3.97 X10*6/uL (4.20-5.50); Red Cell Distribution Width 13.3 % (11.0-16.0); White Blood Count 5.4 X10*3/uL (4.8-10.8)
[2023-05-15 08:51] LABS: Estimated Average Glucose 255 mg/dL; Hemoglobin A1c % 10.5 % (<6.0)
[2023-05-15 09:20] LABS: Creatinine Urine 105.69 mg/dL
[2023-05-15 09:24] LABS: Alanine Aminotransferase 8 U/L (0-31); Albumin Level 3.6 g/dL (3.5-5.0); Alkaline Phosphatase 77 U/L (39-117); Anion Gap 14 (12-20); Aspartate Amino Transferase 11 U/L (5-31); Bilirubin Direct 0.2 mg/dL (0.0-0.5); Bilirubin Total 0.4 mg/dL (0.0-1.0); Blood Urea Nitrogen 21 mg/dL (9-16); Calcium 8.8 mg/dL (8.4-10.2); Carbon Dioxide 27 mmol/L (22-29); Chloride 102 mmol/L (96-108); Cholesterol 240 mg/dL (<200); Estimated Glomerular Filt Rate 49; Glucose Random 257 mg/dL (60-115); HDL Cholesterol 48 mg/dL (>40); LDL Cholesterol Calculated 165 mg/dL (<100); Potassium 4.3 mmol/L (3.3-5.1); Sodium 139 mmol/L (135-145); Total Protein 6.3 g/dL (6.5-8.0); Triglycerides 136 mg/dL (<150)
[2023-05-15 09:31] LABS: Microalbum/Creatinine Ratio Ur 1341.6 ug/mg cr (<30)
[2023-05-15 09:41] LABS: Free T4 (Free Thyroxine) 1.14 ng/dL (0.71-1.85); Vitamin D 25-OH Total 13.4 ng/mL (>30)
== END 2023-05-15 08:11 | disposition home or self-care (01) ==
LOC: HO.LAB 08:10
PROVIDERS: PCP Family Medicine; Visit Provider Family Medicine
DX: E11.3299 Type 2 diabetes mellitus with mild nonproliferative diabetic retinopathy without macular edema, unspecified eye (principal); Z79.4 Long term (current) use of insulin
CPT/HCPCS: 36415; 80048; 80061; 80076; 82043; 82306; 82570; 83036; 84439; 84443; 85027

== ENCOUNTER 2023-05-31 17:53 | Outpatient (REF) | payer MEDICAID, SELFPAY | END 2023-05-31 17:54 | disposition home or self-care (01) | LOC: HO.MRI 17:53 | PROVIDERS: PCP Family Medicine; Visit Provider Family Medicine | DX: Z13.89 Encounter for screening for other disorder (principal) ==

== ENCOUNTER 2023-06-12 14:03 | Outpatient (AMB) | payer MEDICAID, SELFPAY ==
--- NOTE | 2023-06-12 14:05 | A.OFFVIS_ITS ---
Vital Signs 06/12/23 14:09 Height 5 ft 1 in Weight 148 lb BMI 28.0 BP 191/81 H Blood Pressure Location Lt brachial Position Sitting Pulse 76 Pulse Source Pulse Oximeter Pulse Oximetry (%) 98 Oxygen Delivery Method Room Air Intake Visit Reasons: CHRONIC BILATERAL LOW BACK PAIN Intake Note: Pain today 08/22 Sound Tester Required: Yes Sound Tester Language: Quality Control Microbiology Supervisor Name: Oniel #[id number] Accompanied by: Family/Other Allergies latex [LATEX] Allergy (Severe, Verified 06/12/23 14:07) RASH naproxen [From NAPROSYN] Adverse Reaction (Intermediate, Verified 06/12/23 14:07) TACHYCARDIA HPI HPI CHRONIC BILATERAL LOW BACK PAIN: Details: Patient is a pleasant 62 years old [place] speaking female with prior history of lumbar spinal stenosis, grade 1 anterolisthesis at L4-L5, chronic low back pain, diabetic neuropathy, s/p right carotid endarterectomy in 11/[address] Aragon, presents today for initial evaluation of lower back pain with bilateral radiculopathy, right worse than left. Pain has been progressively worsening over the past year. Denies any recent trauma, injury or falls. Patient reports she had lumbar spine MRI in 2018 and was offered back surgery which she declined. Patient was offered formal physical therapy by her PCP but could not pursue it due to significant low back pain. Denies any fever, abdominal or groin pain, bladder or bowel dysfunction or saddle anesthesia. Patient's diabetes is not well controlled with most recent A1C=10.5 on 05/15/23, she recently returned to Endocrinology after long absence due to transportation issues and has pending approval for Dexicomp sensor. She has LORE, but refuses CPAP use. Per referral notes, patient has chronic cough, smokes tobacco 1PPD, and has stable LLL calcified granuloma with T-spot positive July 2022, follows at TB clinic. Location: Lower back pain, radiates to both legs occasionally, right>left Duration: Chronic pain for >5 years Characteristics of symptom or complaint: Aching, dull, sore, heavy, throbbing, pinching, radiating, stabbing Aggravating or associated factors: Movements, bending, walking, sitting, changing position, prolonged standing Relieving factors: Oxycodone, heat/cold therapy, Tylenol, Flexeril, gabapentin, baclofen Treatment: Back surgery was offered [id number], patient declined [facility] Medical History (Updated 06/13/23 @ 13:41 by PETE Andersen) Mild aortic valve stenosis LORE (obstructive sleep apnea) Chronic low back pain Lumbar spinal stenosis HTN (hypertension) Vitamin D deficiency HLD (hyperlipidemia) T2DM (type 2 diabetes mellitus) H. pylori infection CAD (coronary artery disease) Cyst (solitary) of breast Kidney calculi Arthritis Asthma HTN (hypertension) Diabetes Surgical History (Updated 06/13/23 @ 13:41 by PETE Andersen) History of right-sided carotid endarterectomy (~11/2022) S/P aortogram History of esophagogastroduodenoscopy (EGD) Hx of colonoscopy History of breast surgery History of cardiac cath Family History Mother Diabetes Liver cancer Social History Household Members: Children and Friend(s) Household Members Other:: friend and adult son Housing: Apartment Are you a primary residential child care counselor to a significant other at home: No Do you presently have visiting nurse or other home services: No Alcohol intake: never Comment: pt sleeping Patient Tobacco Use Status: Current everyday Tobacco user Tobacco use type: Cigarette Cigarette Packs Per Day: 1 Cigarettes Per Day: 20.0 Years Smoked: 40 e-Cigarette/Vaping Use: Never Used Second Hand Smoke Exposure: Yes service: No Current occupational status: unemployed and disabled Review of Systems Const All systems reviewed & are unremarkable except as noted in HPI and below Physical Exam Vital Signs: Last Vital Signs Pulse 76 06/12/23 14:09 BP 191/81 H 06/12/23 14:09 Pulse Ox 98 06/12/23 14:09 Oxygen Delivery Method Room Air 06/12/23 14:09 BMI result Body Mass Index 28.0 General: Appears afebrile. Alert and oriented. Mood and affect appropriate. Follows and participates in conversation appropriately. Respiratory effort is unlabored. No cough. Able to transition from sit to stand unassisted. Ambulates with bilaterally normal heel strike and toe off, reports unsteadiness with walking. Resp Effort & Inspection: normal respiratory effort, able to speak in complete sentences, no cough, no respiratory distress and symmetric chest movement Back/Spine/Pelvis Other: Limited lumbar ROM due to pain. Mildly antalgic gait. No limping. Can flex forward to 55-65 degrees and extend to 5-10 degrees before experiencing lumbar pain, worse pain with flexing forward. Demonstrates 5/5 strength of quadriceps bilaterally as well as flexion/dorsiflexion of bilateral feet against resista nce. 2+ pedal pulses bilaterally. +1 patellar and achilles reflexes bilaterally. Facet loading test positive bilaterally. Loly sign, Miguel?s, Pelvic compression and Stinchfield tests are positive bilaterally. No groin pain with I/E hip rotations. Valsalva maneuver negative. Mild TTP bilateral GTB. Cervical Spine: cervical ROM normal, cervical muscular tenderness and No Cervical spine tenderness Thoracic/Lumbar Spine: thoracic and lumbar spine normal to inspection, No Thoracic/lumbar spine scar(s), Lasegue's sign positive bilateral and diffuse, pain with thoraco-lumbar ROM, paraspinal muscle tenderness, thoraco-lumbar ROM limited, No thoracic spinal tenderness and lumbar spinal tenderness (L4-S1) Pelvis: no buttock tenderness Sacroiliac joints: bilaterally tender to palpation Extrem General: Yes capillary refill normal, Yes no clubbing, cyanosis or edema and Yes no calf tenderness Results Reviewed Results Reviewed: MR LUMBAR SPINE WITHOUT CONTRAST 05/10/2018 CLINICAL INFORMATION: Worsening low back pain to the knees bilaterally with decreased sensation. COMPARISON: MRI of the lumbar spine without and with contrast dated 01/26/2017. Radiographs of the lumbar spine dated 03/20/2018. FINDINGS: VERTEBRAL BODIES AND PARASPINAL STRUCTURES: There is grade 1 anterolisthesis at L4-L5. Alignment the remaining levels is within normal limits. The vertebral body heights are well-maintained. Marrow signal is mildly heterogeneous, consistent with fatty replacement. No osseous lesions are visualized. There is disc desiccation with mild loss of intervertebral disc space height present at L4-L5. Slight loss of height is also visualized at L3-L4. No paraspinal abnormalities are present. The visualized retroperitoneal soft tissues are unremarkable. CONUS MEDULLARIS AND CAUDA EQUINA: Normal, terminating at the level of L1. SPINAL LEVELS: T12-L1: There is no disc herniation, central canal or foraminal stenosis. L1-L2: There is no disc herniation, central canal or foraminal stenosis. L2-L3: There is no disc herniation, central canal or foraminal stenosis. Mild facet arthropathy is present bilaterally. L3-L4: There is minimal bulging of the disc without significant central canal stenosis. Mild facet arthropathy is present bilaterally. This contributes to mild narrowing of the right neural foramen. The left neural foramen appears patent. L4-L5: There is uncovering of the disc secondary to anterolisthesis. Slight bulging of the disc is also noted, eccentric to the left. Advanced facet arthropathy and ligamentum flavum thickening results in mild to moderate central canal stenosis, slightly increased since the prior examination. There is narrowing of the subarticular zone bilaterally with impingement upon the traversing L5 nerve roots bilaterally. There is moderate foraminal stenosis bilaterally, left greater than right with encroachment upon the exiting L4 nerve roots bilaterally. L5-S1: There is a broad-based posterior disc protrusion associated with bilateral facet arthropathy. No significant central canal stenosis is present. Mild foraminal narrowing is present bilaterally. IMPRESSION: Grade 1 anterolisthesis at L4-L5 secondary to advanced facet arthropathy. Moderate central canal stenosis is now present at this level. Subarticular narrowing results in mass effect upon the traversing L5 nerve roots bilaterally. Moderate foraminal stenosis is also present bilaterally with encroachment upon the exiting L4 nerve roots. Mild foraminal narrowing on the right at L3-L4 and bilaterally at L5-S1 predominantly secondary to facet arthropathy. XR LUMBOSACRAL SPINE 03/20/2018 CLINICAL INFORMATION: Low back pain. No injury. COMPARISON: MRI lumbar spine 01/26/2017, x-ray sacrum and coccyx 04/29/2014, x-ray lumbosacral spine 03/06/2014 TECHNIQUE: 3 views of the lumbosacral spine were obtained. FINDINGS: 5 nonrib-bearing lumbar type vertebral bodies are seen. Grade 1 anterolisthesis of L4 on L5. Vertebral body heights are maintained without evidence of compression fracture. No significant loss of disc height either. L5-S1 facet arthropathy. Minimal joint space narrowing of the bilateral hips. IMPRESSION: Grade 1 anterolisthesis of L4 on L5. L5-S1 facet arthropathy. EMG and NVC April 2018 Early distal sensorimotor neuropathy in the lower extremities Assessment & Plan Assessment & Plan (1) Elevated hemoglobin A1c: Code(s): R73.09 - Other abnormal glucose Category: Medical (2) Spondylolisthesis, lumbar region: Code(s): M43.16 - Spondylolisthesis, lumbar region Category: Medical (3) Lumbosacral spondylosis: Code(s): M47.817 - Spondylosis without myelopathy or radiculopathy, lumbosacral region Category: Medical (4) Lumbar spinal stenosis: Code(s): M48.061 - Spinal stenosis, lumbar region without neurogenic claudication Category: Medical (5) Chronic low back pain: Code(s): M54.50 - Low back pain, unspecified; G89.29 - Other chronic pain Category: Medical Plan MRI of the lumbar spine to assess for neural integrity and compression and follow up on previous MRI findings. Will obtain lumbar xray to evaluate for stability with flexion and extension. Patient experiences progressively worsening low back pain with spinal-stenosis related pain. Patient will return to the clinic to discuss results of the MRI findings when it is done and consider interventional therapy vs Neurosurgical evaluation as indicated. At this time, due to uncontrolled DM and elevated A1C at 10.5, patient is not candidate for therapeutic injections. Briefly discussed treatments for axial low back pain with diagnostic injections for potential RFA procedure. Ophathalmology referral for diabetic eye exam. Reports last eye exam in 2020. All questions and concerns have been answered and patient agreed with the plan. Follow up for MRI results and sooner as needed. Orders: Orders XR lumbar spine 4V min 06/12/23 M43.16 - Spondylolisthesis, lumbar region, M47.817 - Spondylosis without myelopathy or radiculopathy, lumbosacral region MR lumbar spine wo con 06/12/23 M43.16 - Spondylolisthesis, lumbar region, M48.061 - Spinal stenosis, lumbar region without neurogenic claudication Referrals Ophthalmology Referral E11.319 - Type 2 diabetes mellitus with unspecified diabetic retinopathy without macular edema, E11.3213 - Type 2 diabetes mellitus with mild nonproliferative diabetic retinopathy with macular edema, bilateral, R73.09 - Other abnormal glucose Coding Level of Care Code New Pt Level 4 (79603) Diagnoses Elevated hemoglobin A1c R73.09 Spondylolisthesis, lumbar region M43.16 Lumbosacral spondylosis M47.817 Lumbar spinal stenosis M48.061 Chronic low back pain M54.50; G89.29
[2023-06-12 14:09] VITALS: BP 191/81; PULSE 76; O2SAT 98; BMI 28.0
== END 2023-06-12 14:43 | disposition home or self-care (01) ==
PROVIDERS: PCP Family Medicine; Visit Provider Nurse Practitioner Family
DX: R73.09 Other abnormal glucose (principal); M43.16 Spondylolisthesis, lumbar region; M47.817 Spondylosis without myelopathy or radiculopathy, lumbosacral region; M48.061 Spinal stenosis, lumbar region without neurogenic claudication; M54.50 Low back pain, unspecified; G89.29 Other chronic pain
CPT/HCPCS: 99204

== ENCOUNTER 2023-06-12 14:03 | Outpatient (REF) | payer MEDICAID, SELFPAY ==
--- NOTE | ~2023-06-12 | XR_ITS ---
EXAMINATION: XR LUMBOSACRAL SPINE WITH OBLIQUES CLINICAL INFORMATION: 62-year-old female with low back pain COMPARISON: 03/20/2018 TECHNIQUE: AP, both oblique, and lateral views of the lumbar spine. Lateral view of the lumbosacral junction. FINDINGS: There is stable mild narrowing cough L4-L5 with grade 1 anterior listhesis and facets arthropathy at the level of L5-S1. There is vascular Wallstent is identified on the right. XR/XR lumbar spine 4V min IMPRESSION: Stable degenerative changes at the level of L4-L5 with grade 1 anterior listhesis. Wallstent
== END 2023-06-12 14:04 | disposition home or self-care (01) ==
LOC: HO.XRAY 14:03
PROVIDERS: PCP Family Medicine; Visit Provider Nurse Practitioner Family
DX: M43.16 Spondylolisthesis, lumbar region (principal); M47.817 Spondylosis without myelopathy or radiculopathy, lumbosacral region; E11.40 Type 2 diabetes mellitus with diabetic neuropathy, unspecified; M48.061 Spinal stenosis, lumbar region without neurogenic claudication; G89.29 Other chronic pain
CPT/HCPCS: 72110; 99212

== ENCOUNTER 2023-07-06 10:21 | Outpatient (AMB) | payer MEDICAID, SELFPAY ==
--- NOTE | 2023-07-06 10:34 | A.OFFVIS_ITS ---
Vital Signs 07/06/23 10:40 07/06/23 10:55 Height 5 ft 1 in Weight 142 lb BMI 26.8 BP 199/87 H 194/92 H Blood Pressure Location Lt brachial Lt brachial Position Sitting Sitting Pulse 74 78 Pulse Source Pulse Oximeter Auscultation Pulse Oximetry (%) 98 100 Oxygen Delivery Method Room Air Room Air Comment Manual BP cuff Intake Visit Reasons: MRI results Intake Note: Pain today 09/22 Domestic Cleaner Required: Yes Domestic Cleaner Language: Finisher Denture Name: Molly #[id number] Accompanied by: Self / Same As Patient Allergies latex [LATEX] Allergy (Severe, Verified 07/06/23 11:12) RASH naproxen [From NAPROSYN] Adverse Reaction (Intermediate, Verified 07/06/23 11:12) TACHYCARDIA HPI Comments Details: Patient presents today for follow-up to discuss recent lumbar spine MRI results. Denies any recent cough, cold, infection, fever, any significant changes in her medical history, medications or recent hospitalizations. Patient presents with elevated BP, reports taking her BP medications this morning. Denies any chest pain, tightness or pressure, cough, shortness of breaths, dizziness, nausea, radiating jaw, neck or arm pain. Patient was enco uraged to seek medical evaluation in Urgent clinic or ER and follow up with her Cardiology and PCP providers. PRIOR: Patient is a pleasant 62 years old Citizen [place] speaking female with prior history of lumbar spinal stenosis, grade 1 anterolisthesis at L4-L5, chronic low back pain, diabetic neuropathy, s/p right carotid endarterectomy in 11/[address] Aragon, presents today for initial evaluation of lower back pain with bilateral radiculopathy, right worse than left. Pain has been progressively worsening over the past year. Denies any recent trauma, injury or falls. Patient reports she had lumbar spine MRI in 2019 and was offered back surgery which she declined. Patient was offered formal physical therapy by her PCP but could not pursue it due to significant low back pain. Denies any fever, abdominal or groin pain, bladder or bowel dysfunction or saddle anesthesia. Patient's diabetes is not well controlled with most recent A1C=10.5 on 05/15/23, she recently returned to Endocrinology after long absence due to transportation issues and has pending approval for Dexicomp sensor. She has LORE, but refuses CPAP use. Per referral notes, patient has chronic cough, smokes tobacco 1PPD, and has stable LLL calcified granuloma with T-spot positive July 2022, follows at TB clinic. Location: Lower back pain, radiates to both legs occasionally, right>left Duration: Chronic pain for >5 years Characteristics of symptom or complaint: Aching, dull, sore, heavy, throbbing, pinching, radiating, stabbing Aggravating or associated factors: Movements, bending, walking, sitting, changing position, prolonged standing Relieving factors: Oxycodone, heat/cold therapy, Tylenol, Flexeril, gabapentin, baclofen Treatment: Back surgery was offered [id number], patient declined [facility] Medical History Mild aortic valve stenosis LORE (obstructive sleep apnea) Chronic low back pain Lumbar spinal stenosis HTN (hypertension) Vitamin D deficiency HLD (hyperlipidemia) T2DM (type 2 diabetes mellitus) H. pylori infection CAD (coronary artery disease) Cyst (solitary) of breast Kidney calculi Arthritis Asthma HTN (hypertension) Diabetes Surgical History History of right-sided carotid endarterectomy (~11/2022) S/P aortogram History of esophagogastroduodenoscopy (EGD) Hx of colonoscopy History of breast surgery History of cardiac cath Family History Mother Diabetes Liver cancer Social History Household Members: Children and Friend(s) Household Members Other:: friend and adult son Housing: Apartment Are you a primary hospice home care coordinator to a significant other at home: No Do you presently have visiting nurse or other home services: No Alcohol intake: never Comment: pt sleeping Patient Tobacco Use Status: Current everyday Tobacco user Tobacco use type: Cigarette Cigarette Packs Per Day: 1 Cigarettes Per Day: 20.0 Years Smoked: 40 e-Cigarette/Vaping Use: Never Used Second Hand Smoke Exposure: Yes Advance Directives: No Advance Directives Information Provided: No Do you have a plan to hurt others: No Plan service: No Current occupational status: unemployed and disabled Review of Systems Const All systems reviewed & are unremarkable except as noted in HPI and below Card Reports as per HPI, Denies chest pain, Denies chest pain with activity, Denies diaphoresis, Denies pedal edema, Denies edema, Denies claudication, Denies lightheadedness, Denies radiating jaw, neck or arm pain, Denies palpitations and Denies dyspnea on exertion Resp Denies dyspnea on exertion Endo Denies palpitations Physical Exam Vital Signs: Last Vital Signs Pulse 78 07/06/23 10:55 BP 194/92 H 07/06/23 10:55 Pulse Ox 100 07/06/23 10:55 Oxygen Delivery Method Room Air 07/06/23 10:55 BMI result Body Mass Index 26.8 General: Appears afebrile. Alert and oriented. Mood and affect appropriate. Follows and participates in conversation appropriately. Respiratory effort is unlabored. No cough. Able to transition from sit to stand unassisted. Ambulates with bilaterally normal heel strike and toe off, reports unsteadiness with walking. Resp Effort & Inspection: normal respiratory effort, able to speak in complete sentences, no cough, no respiratory distress and symmetric chest movement Back/Spine/Pelvis Other: Limited lumbar ROM due to pain. Mildly antalgic gait. No limping. Can flex forward to 55-65 degrees and extend to 5-10 degrees before experiencing lumbar pain, worse pain with flexing forward. Demonstrates 5/5 strength of quadriceps bilaterally as well as flexion/dorsiflexion of bilateral feet against resistance. 2+ pedal pulses bilaterally. +1 patellar and achilles reflexes mitch aterally. Facet loading test positive bilaterally. Loly sign, Miguel?s, Pelvic compression and Stinchfield tests are positive bilaterally. No groin pain with I/E hip rotations. Valsalva maneuver negative. Mild TTP bilateral GTB. Cervical Spine: cervical ROM normal, cervical muscular tenderness and No Cervical spine tenderness Thoracic/Lumbar Spine: thoracic and lumbar spine normal to inspection, No Thoracic/lumbar spine scar(s), Lasegue's sign positive bilateral and diffuse, pain with thoraco-lumbar ROM, paraspinal muscle tenderness, thoraco-lumbar ROM limited, No thoracic spinal tenderness and lumbar spinal tenderness (L4-S1) Pelvis: no buttock tenderness Sacroiliac joints: bilaterally tender to palpation Extrem General: Yes capillary refill normal, Yes no clubbing, cyanosis or edema and Yes no calf tenderness Results Reviewed Results Reviewed: MR SPINE LUMBAR without CONTRAST 06/29/23 at [facility] INDICATION: Lower back pain for 2 years. No injury or trauma. TECHNIQUE: Unenhanced multiplanar, multisequence MR imaging of the lumbar spine. FINDINGS: Normal lumbar alignment is demonstrated. There is 3 mm anterolisthesis of L4 on L5. Vertebral heights are well maintained. Bone marrow signal is within normal limits, and no suspicious osseous lesion is identified. Conus medullaris is unremarkable. Paraspinal soft tissues and visualized portions of the abdomen and pelvis are unremarkable. At L1-2 there is no significant disc herniation or protrusion. No central canal or neural foraminal stenosis is demonstrated. At L2-3 there is no significant disc herniation or protrusion. No central canal or neural foraminal stenosis is demonstrated. At L3-4 there is a mild annular disc bulge. Central canal is patent. There is mild bilateral neural foraminal stenosis. At L4-5 there is grade 1 anterolisthesis and broad-based disc bulge with mild to moderate facet arthrosis and ligamentum flavum hypertrophy. There is moderate central canal stenosis and moderate to advanced bilateral neural foraminal stenosis. At L5-S1 there is a broad-based disc bulge with small central disc protrusion. There is mild narrowing of the central canal and right lateral recess. There is advanced bilateral neural foraminal stenosis. IMPRESSION: Degenerative changes greater at L4-5 with grade I anterolisthesis with moderate central canal stenosis and moderate to advanced bilateral neural foraminal stenosis. Additionally, at L5-S1 there is a broad-based disc bulge with advanced bilateral neural foraminal stenosis with mild narrowing of the central canal and right lateral recess. Mild narrowing of the neural foramina is seen at L3-4. Assessment & Plan Assessment & Plan (1) Spondylolisthesis, lumbar region: Code(s): M43.16 - Spondylolisthesis, lumbar region Category: Medical (2) Lumbosacral spondylosis: Code(s): M47.817 - Spondylosis without myelopathy or radiculopathy, lumbosacral region Category: Medical (3) Lumbar spinal stenosis: Code(s): M48.061 - Spinal stenosis, lumbar region without neurogenic claudication Category: Medical (4) Chronic low back pain: Code(s): M54.50 - Low back pain, unspecified; G89.29 - Other chronic pain Category: Medical Plan Lumbar spine MRI results were reviewed with patient today with assistance of site interpreter. At this time, due to uncontrolled DM and elevated A1C at 10.5, patient is not candidate for therapeutic injections. Briefly discussed treatments for axial low back pain with diagnostic injections for potential RFA procedure. Patient prefers to pursue Neurosurgical evaluation to address her spinal stenosis related pain. Patient was urge to seek medical patient in ER as well as follow-up with your resort keeper and PCP providers for asymptomatic, elevated blood pressure. Patient presents with SBP>190 for past 2 visits, reports taking her BP medications this morning. All questions and concerns have been answered and patient agreed with the plan. Follow up after Neurosurgery evaluation and sooner as needed. Orders: Referrals Neurosurgery Referral G89.29 - Other chronic pain, M43.16 - Spondylolisthesis, lumbar region, M48.061 - Spinal stenosis, lumbar region without neurogenic claudication, M54.50 - Low back pain, unspecified Coding Level of Care Code Est Pt Level 4 (97891) Diagnoses Spondylolisthesis, lumbar region M43.16 Lumbosacral spondylosis M47.817 Lumbar spinal stenosis M48.061 Chronic low back pain M54.50; G89.29
[2023-07-06 10:40] VITALS: BP 199/87; PULSE 74; O2SAT 98; BMI 26.8
[2023-07-06 10:55] VITALS: BP 194/92; PULSE 78; O2SAT 100
== END 2023-07-06 11:09 | disposition home or self-care (01) ==
PROVIDERS: PCP Family Medicine; Visit Provider Nurse Practitioner Family
DX: M43.16 Spondylolisthesis, lumbar region (principal); M47.817 Spondylosis without myelopathy or radiculopathy, lumbosacral region; M48.061 Spinal stenosis, lumbar region without neurogenic claudication; M54.50 Low back pain, unspecified; G89.29 Other chronic pain
CPT/HCPCS: 99214

== ENCOUNTER → 2023-07-06 10:21 | Outpatient (BNVA) | payer MEDICAID, SELFPAY | PROVIDERS: PCP Family Medicine; Visit Provider Nurse Practitioner Family ==

== ENCOUNTER 2023-07-06 11:02 | Emergency (ER) | payer MEDICAID, SELFPAY ==
--- NOTE | ~2023-07-06 | XR_ITS ---
EXAMINATION: XR CHEST CLINICAL INFORMATION: Chest pain cough COMPARISON: Chest radiograph from 12/16/2022 TECHNIQUE: 2 views of the chest were obtained. FINDINGS: No focal consolidation. No pneumothorax. Trachea is midline. Cardiac mediastinal silhouette is not enlarged. No large pleural effusion. Osseous structures are intact. Soft tissues are unremarkable. XR/XR chest 2V IMPRESSION: No acute cardiopulmonary process.
--- NOTE | 2023-07-06 11:09 | ED.GENADULT ---
HPI - General Adult General Chief complaint: General Medical Stated complaint: High BP Related Data Home Medications ?Medication ?Instructions ?Recorded ?Confirmed metformin 1,000 mg tablet 1,000 mg PO BID 12/22/19 11/23/22 aspirin 81 mg tablet,delayed 81 mg PO DAILY 01/02/20 11/23/22 release (Adult Low Dose Aspirin) atorvastatin 80 mg tablet (Lipitor) 80 mg PO BEDTIME 01/02/20 11/23/22 carvedilol 25 mg tablet (Coreg) 25 mg PO BID 01/02/20 11/23/22 escitalopram oxalate 20 mg tablet 20 mg PO DAILY 01/02/20 11/23/22 (Lexapro) gabapentin 800 mg tablet 800 mg PO TID 01/02/20 11/23/22 lisinopril 40 mg tablet 40 mg PO DAILY 01/02/20 11/23/22 mirtazapine 45 mg tablet 45 mg PO BEDTIME 01/02/20 11/23/22 multivitamin 1 tab PO DAILY 01/02/20 11/23/22 acetaminophen 650 mg 650 mg PO Q8H PRN Pain (Scale 01/16/21 11/23/22 tablet,extended release (Arthritis Score 1-3) Pain Relief (acetaminophen) ER) amlodipine 10 mg tablet 10 mg PO BEDTIME 01/16/21 11/23/22 fluticasone propionate 110 2 puff inhalation BID 01/16/21 11/23/22 mcg/actuation HFA aerosol inhaler (Flovent HFA) fluticasone propionate 50 2 spray intranasal DAILY 01/16/21 11/23/22 mcg/actuation nasal spray,suspension pantoprazole 40 mg tablet,delayed 40 mg PO BID@0630,1630 01/16/21 11/23/22 release (Protonix) blood sugar diagnostic (FreeStyle #10 ea 03/30/21 10/03/22 Lite Strips) clotrimazole 1 % topical cream 1 appl topical BID 03/30/21 11/23/22 insulin degludec 100 unit/mL (3 5 unit subcut DAILY 10/03/22 11/23/22 mL) subcutaneous pen (Tresiba FlexTouch U-100 insulin) amitriptyline 50 mg tablet 50 mg PO BEDTIME 11/07/22 11/23/22 cyclobenzaprine 10 mg tablet 10 mg PO Q8H PRN Muscle Spasm 11/23/22 11/23/22 metoclopramide HCl 10 mg tablet 10 mg PO Q6H PRN Nausea 11/23/22 11/23/22 (Reglan) hydralazine 25 mg tablet 25 mg PO TID 06/12/23 mometasone 100 mcg/actuation HFA 2 puff inhalation BID 06/12/23 aerosol inhaler (Asmanex HFA) omeprazole 20 mg capsule,delayed 40 mg PO 06/12/23 release oxycodone 5 mg tablet 5 mg PO PRN severe pain 06/12/23 Previous Rx's ?Medication ?Instructions ?Recorded ferrous sulfate 325 mg (65 mg 325 mg PO BID #60 tabs 05/24/20 iron) tablet hydrochlorothiazide 25 mg tablet 25 mg PO DAILY #30 tabs 08/13/20 clopidogrel 75 mg tablet (Plavix) 75 mg PO DAILY #30 tabs 12/02/20 pioglitazone 15 mg tablet 15 mg PO DAILY 30 days #30 tabs 12/02/20 albuterol sulfate 2.5 mg/3 mL 2.5 mg (3 mL) inhalation Q4H PRN 01/19/21 (0.083 %) solution for nebulization shortness of breath/wheeze #100 mL lancets 33 gauge (TRUEplus Lancets) #100 ea 07/26/21 hydralazine 50 mg tablet 50 mg PO TID #3 tabs 09/21/21 clonidine 0.2 mg/24 hr weekly 1 patch transdermal QWEEK #4 ea 03/09/22 transdermal patch docusate sodium 100 mg capsule 100 mg PO BID PRN Constipation #14 04/17/22 (Colace) caps polyethylene glycol 3350 17 17 g PO DAILY #238 grams 04/17/22 gram/dose oral powder (Miralax) amrgitdrgi-teexhkxsqsqrv-fgigurxe 1 tab PO Q6H PRN haeadace #20 tabs 12/17/22 50 mg-325 mg-40 mg tablet Allergies Allergy/AdvReac Type Severity Reaction Status Date / Time latex [LATEX] Allergy Severe RASH Verified 07/06/23 11:12 naproxen [From NAPROSYN] AdvReac Intermediate TACHYCARDIA Verified 07/06/23 11:12 [facility] Past Medical History Medical History Mild aortic valve stenosis LORE (obstructive sleep apnea) Chronic low back pain Lumbar spinal stenosis HTN (hypertension) Vitamin D deficiency HLD (hyperlipidemia) T2DM (type 2 diabetes mellitus) H. pylori infection CAD (coronary artery disease) Cyst (solitary) of breast Kidney calculi Arthritis Asthma HTN (hypertension) Diabetes Surgical History History of right-sided carotid endarterectomy (~11/2022) S/P aortogram History of esophagogastroduodenoscopy (EGD) Hx of colonoscopy History of breast surgery History of cardiac cath Family History Family History Mother Diabetes Liver cancer Social History Social History Household Members: Children and Friend(s) Household Members Other:: friend and adult son Housing: Apartment Are you a primary critical care transport nurse to a significant other at home: No Do you presently have visiting nurse or other home services: No Alcohol intake: never Comment: pt sleeping Patient Tobacco Use Status: Current everyday Tobacco user Tobacco use type: Cigarette Cigarette Packs Per Day: 1 Cigarettes Per Day: 20.0 Years Smoked: 40 e-Cigarette/Vaping Use: Never Used Second Hand Smoke Exposure: Yes Advance Directives: No Advance Directives Information Provided: No Do you have a plan to hurt others: No Plan service: No Current occupational status: unemployed and disabled Physical Exam ED Vital Signs: Vital Signs - 24 hr 07/06/23 11:11 Temperature 97.9 F Pulse Rate 74 Respiratory Rate 18 Blood Pressure 238/85 H Pulse Oximetry 100 Oxygen Delivery Method Room Air BMI result Body Mass Index 27.9 Course Course Course Narrative: This is a Rapid Medical Examination (RME) performed by Jon Rey PA-C in triage. Full HPI, ROS, assessment and treatment plan per primary provider in the Main ED. 62 yo female hx of HTN, HDL, T2DM, CAD, asthma, arthritis, LORE here for eval of elevated BP. admits to taking bp meds this morning. also endorses cough x2 weeks. no sick contacts. no sputum production. current tobacco smoker, approx 1-1.5 cigarettes a day. denies chest pain, LIRIANO, dizziness, palpitations, sob. patient takes lisinopril 40mg qd and HCTZ 25mg qd. well appearing. NAD. not diaphoretic. rrr. lungs w/ diminished bs b/l, no wheezes/ rhonchi. Plan: labs, ekg, trop, cxr, viral serology ordered. Reevaluation(s) Reevaluation #1: Patient left the ED without completing treatment Medical Decision Making Lab Data 07/06/23 11:23 07/06/23 11:23 Labs: Lab Results 07/06/23 Range/Units 11:23 WBC 5.9 (4.8-10.8) X10*3/uL RBC 3.92 L (4.20-5.50) X10*6/uL Hgb 11.8 L (12.0-16.0) g/dl Hct 35.8 L (37.0-47.0) % MCV 91.3 (80.0-98.0) fL MCH 30.1 (27.0-33.0) pg MCHC 33.0 (31.0-35.0) g/dl RDW 13.3 (11.0-16.0) % Plt Count 289 (160-400) X10*3/uL MPV 9.1 L (9.4-12.3) fL Immature Gran % (Auto) 0.3 (0.0-0.4) % Neut % (Auto) 63.4 (45-73) % Lymph % (Auto) 25.9 (20-40) % [place] % (Auto) 6.3 (2-11) % Eos % (Auto) 3.4 (0-4) % Baso % (Auto) 0.7 (0-2) % Lymph # (Auto) 1.5 (1.2-4.9) X10*3/uL [place] # (Auto) 0.4 (0.1-1.2) X10*3/uL Eos # (Auto) 0.2 (0.0-0.4) X10*3/uL Baso # (Auto) 0.0 (0.0-0.2) X10*3/uL Abs Immat Gran (auto) 0.02 (0.00-0.03) X10*3/uL Absolute Neuts (auto) 3.8 (2.0-8.3) x10*3/uL Absolute Nucleated RBC 0.000 (0.0-0.012) X10*3/uL Nucleated RBC % (auto) 0.0 (0.0-0.2) /100WBC Sodium 142 (135-145) mmol/L Potassium 4.4 (3.3-5.1) mmol/L Chloride 106 (96-108) mmol/L Carbon Dioxide 30 H (22-29) mmol/L Anion Gap 10 L (12-20) BUN 13 (9-16) mg/dL Creatinine 0.81 (0.5-1.4) mg/dL Estim Creat Clear Calc 61.3 Estimated GFR > 60 Random Glucose 194 H (60-115) mg/dL Calcium 9.5 D (8.4-10.2) mg/dL Magnesium 1.9 (1.6-2.6) mg/dL Total Bilirubin 0.4 (0.0-1.0) mg/dL AST 11 (5-31) U/L ALT 7 (0-31) U/L Alkaline Phosphatase 82 (39-117) U/L Troponin I High Sens 5.5 (<3.5-17.0) ng/L Total Protein 6.7 (6.5-8.0) g/dL Albumin 3.8 (3.5-5.0) g/dL Lipase 8 (8-78) U/L Influenza Type A (PCR) NEGATIVE (Negative) Influenza Type B (PCR) NEGATIVE (Negative) RSV RNA Qual (PCR) NEGATIVE (Negative) SARS-CoV-2 RNA (RT-PCR) NEGATIVE (Negative) Discharge Plan Discharge Clinical Impression: Chest pain Patient Disposition: Left W/O Completing Treatment Prescriptions: No Action hydrochlorothiazide 25 mg tablet 25 mg PO DAILY Qty: 30 0RF Rx Instructions: Must call to schedule a cardiology appointment for more refills - overdue pioglitazone 15 mg tablet 15 mg PO DAILY 30 Days Qty: 30 11RF (DME) lancets [TRUEplus Lancets] 33 gauge misc See Rx Instructions .Route Qty: 100 11RF Rx Instructions: 4x daily metformin 1,000 mg Tablet 1,000 mg PO BID ferrous sulfate 325 mg (65 mg iron) tablet 325 mg PO BID Qty: 60 0RF clopidogrel [Plavix] 75 mg tablet 75 mg PO DAILY Qty: 30 5RF clonidine 0.2 mg/24 hr patch weekly 1 patch transdermal QWEEK Qty: 4 0RF docusate sodium [Colace] 100 mg capsule 100 mg PO BID PRN (Reason: Constipation) Qty: 14 0RF polyethylene glycol 3350 [Miralax] 17 gram/dose powder 17 g PO DAILY Qty: 238 0RF amlodipine 10 mg Tablet 10 mg PO BEDTIME pantoprazole [Protonix] 40 mg tablet,delayed release (DR/EC) 40 mg PO BID@0630,1630 fluticasone propionate 50 mcg/actuation [place],Suspension 2 spray INTRANASAL DAILY acetaminophen [Arthritis Pain Relief (acetam)] 650 mg Tablet Extended Release 650 mg PO Q8H PRN (Reason: Pain (Scale Score 1-3)) fluticasone propionate [Flovent HFA] 110 mcg/actuation Hfa Aerosol Inhaler 2 puff INHALATION BID albuterol sulfate 2.5 mg /3 mL (0.083 %) Solution For Nebulization 2.5 mg inhalation Q4H PRN (Reason: shortness of breath/wheeze) Qty: 100 0RF amitriptyline 50 mg tablet 50 mg PO BEDTIME hydralazine 50 mg tablet 50 mg PO TID Qty: 3 0RF cyclobenzaprine 10 mg tablet 10 mg PO Q8H PRN (Reason: Muscle Spasm) metoclopramide HCl [Reglan] 10 mg Tablet 10 mg PO Q6H PRN (Reason: Nausea) fryzboayue-iwawfmfdnazrh-ioty 50-325-40 mg tablet 1 tab PO Q6H PRN (Reason: haeadace) Qty: 20 0RF carvedilol [Coreg] 25 mg tablet 25 mg PO BID Rx Instructions: must administer with a meal/food multivitamin Tablet 1 tab PO DAILY lisinopril 40 mg tablet 40 mg PO DAILY gabapentin 800 mg tablet 800 mg PO TID aspirin [Adult Low Dose Aspirin] 81 mg tablet,delayed release (DR/EC) 81 mg PO DAILY escitalopram oxalate [Lexapro] 20 mg tablet 20 mg PO DAILY mirtazapine 45 mg tablet 45 mg PO BEDTIME atorvastatin [Lipitor] 80 mg tablet 80 mg PO BEDTIME Tresiba FlexTouch U-100 100 unit/mL (3 mL) insulin pen 5 unit subcut DAILY (DME) FreeStyle Lite Strips Strip See Rx Instructions Not Applicable QID Qty: 10 Rx Instructions: As directed clotrimazole 1 % cream 1 appl topical BID Asmanex HFA 100 mcg/actuation HFA aerosol inhaler 2 puff inhalation BID oxycodone 5 mg tablet 5 mg PO PRN (Reason: severe pain) hydralazine 25 mg tablet 25 mg PO TID omeprazole 20 mg capsule,delayed release(DR/EC) 40 mg PO Discharge Date/Time: 07/06/23 15:16
[2023-07-06 11:11] VITALS: BP 238/85; PULSE 74; RESP 18; TEMP 36.6; O2SAT 100; BMI 27.9
--- NOTE | 2023-07-06 11:15 | ECG_ITS ---
Test Reason : HYPERTENSIVE Blood Pressure : / mmHG Vent. Rate : 074 BPM Atrial Rate : 074 BPM P-R Int : 130 ms QRS Dur : 082 ms QT Int : 392 ms P-R-T Axes : 039 -16 153 degrees QTc Int : 435 ms Normal sinus rhythm Left ventricular hypertrophy with repolarization abnormality ( R in aVL , [place] product ) Abnormal ECG When compared with ECG of 24-DEC-2022 21:36, No significant change was found Referred By: Yohana Rey Electronically Signed By:CAROLYNE ECHOLS MD
[2023-07-06 11:28] LABS: MANUAL DIFF FLAG NO
[2023-07-06 11:31] LABS: Basophils Percent Auto 0.7 % (0-2); Eosinophils Absolute Auto 0.2 X10*3/uL (0.0-0.4); Eosinophils Percent Auto 3.4 % (0-4); Hematocrit 35.8 % (37.0-47.0); Hemoglobin 11.8 g/dl (12.0-16.0); Imm Gran Abs Auto 0.02 X10*3/uL (0.00-0.03); Imm Gran Pct Auto 0.3 % (0.0-0.4); Lymphocytes Absolute Auto 1.5 X10*3/uL (1.2-4.9); Lymphocytes Percent Auto 25.9 % (20-40); Mean Corpuscular Hemoglobin 30.1 pg (27.0-33.0); Mean Corpuscular Volume 91.3 fL (80.0-98.0); Mean Platelet Volume 9.1 fL (9.4-12.3); Monocytes Absolute Auto 0.4 X10*3/uL (0.1-1.2); Monocytes Percent Auto 6.3 % (2-11); Neutrophils Absolute Auto 3.8 x10*3/uL (2.0-8.3); Neutrophils Percent Auto 63.4 % (45-73); Platelet Count 289 X10*3/uL (160-400); Red Blood Count 3.92 X10*6/uL (4.20-5.50); Red Cell Distribution Width 13.3 % (11.0-16.0); White Blood Count 5.9 X10*3/uL (4.8-10.8)
[2023-07-06 11:45] LABS: Alanine Aminotransferase 7 U/L (0-31); Albumin Level 3.8 g/dL (3.5-5.0); Alkaline Phosphatase 82 U/L (39-117); Anion Gap 10 (12-20); Aspartate Amino Transferase 11 U/L (5-31); Bilirubin Total 0.4 mg/dL (0.0-1.0); Blood Urea Nitrogen 13 mg/dL (9-16); Calcium 9.5 mg/dL (8.4-10.2); Carbon Dioxide 30 mmol/L (22-29); Chloride 106 mmol/L (96-108); Creatinine Clr Calc Pharmacy 61.3; Estimated Glomerular Filt Rate > 60; Glucose Random 194 mg/dL (60-115); Lipase 8 U/L (8-78); Magnesium 1.9 mg/dL (1.6-2.6); Potassium 4.4 mmol/L (3.3-5.1); Sodium 142 mmol/L (135-145); Total Protein 6.7 g/dL (6.5-8.0)
[2023-07-06 11:53] LABS: Troponin-I High Sensitivity 5.5 ng/L (<3.5-17.0)
[2023-07-06 12:12] LABS: Influenza A PCR NEGATIVE (Negative); Influenza B PCR NEGATIVE (Negative); Resp Syncy Virus RNA Qual PCR NEGATIVE (Negative); SARS COV2 PCR INHOUSE NEGATIVE (Negative)
== END 2023-07-06 15:16 | disposition left against medical advice (07) ==
LOC: HO.ED 15:15
PROVIDERS: Physician Assistant Medical; Emergency Provider Emergency Medicine
DX: R07.9 Chest pain, unspecified (principal); R05.9 Cough, unspecified; E11.8 Type 2 diabetes mellitus with unspecified complications; I10 Essential (primary) hypertension; E78.5 Hyperlipidemia, unspecified; J45.909 Unspecified asthma, uncomplicated; F17.210 Nicotine dependence, cigarettes, uncomplicated; Z79.4 Long term (current) use of insulin; Z79.84 Long term (current) use of oral hypoglycemic drugs; Z79.82 Long term (current) use of aspirin; Z79.02 Long term (current) use of antithrombotics/antiplatelets; Z03.818 Encounter for observation for suspected exposure to other biological agents ruled out
CPT/HCPCS: 0241U; 36415; 71046; 80053; 83690; 83735; 84484; 85025; 93005; 99212; 99283

== ENCOUNTER → 2023-07-06 11:15 | Outpatient (BNV) | payer MEDICAID, SELFPAY | PROVIDERS: Visit Provider Internal Medicine Cardiovascular Disease | DX: R94.31 Abnormal electrocardiogram [ECG] [EKG] (principal) | CPT/HCPCS: 93010 ==

== ENCOUNTER 2023-07-19 14:48 | Outpatient (AMB) | payer MEDICAID, SELFPAY ==
[2023-07-19 14:51] VITALS: BP 160/84; PULSE 83; O2SAT 97; BMI 28.1
--- NOTE | 2023-07-19 14:51 | HO.NEPHOV ---
Vital Signs 07/19/23 14:51 Height 5 ft Weight 144 lb BMI 28.1 BP 160/84 H Blood Pressure Location Lt brachial Position Sitting Pulse 83 Pulse Source Pulse Oximeter Pulse Oximetry (%) 97 Intake Visit Reasons: Essential hypertension/ Confirmed Differential Tester Required: Yes Differential Tester Name: [id number] Accompanied by: Self / Same As Patient Allergies latex [LATEX] Allergy (Severe, Verified 07/19/23 14:54) RASH naproxen [From NAPROSYN] Adverse Reaction (Intermediate, Verified 07/19/23 14:54) TACHYCARDIA HPI Comments Details: . Rocío is a 62-year-old woman with a significant vascular disease and resistant hypertension. She is on multiple antihypertensive medications in the blood pressure is still suboptimal. She did not bring her list of medications. However from the available data it appears that she is on amlodipine 10 mg carvedilol 25 mg twice a day clonidine patch, hydralazine 50 mg t.i.d. lisinopril 40 mg and hydrochlorothiazide 25 mg. She tells me that she has been compliant with her medications. There is a question of renal artery stenosis. However she had a Doppler ultrasound a year ago which was inconclusive however she had a CT angiogram in 2021 which did not reveal any significant renal artery stenosis. She has normal renal function with a creatinine of less than 1. She has non nephrotic range proteinuria with a urine protein creatinine ratio revealing 1000 mg of protein excretion. She has coronary artery disease with 60-70% mid RCA stenosis History of peripheral vascular disease status post fem-pop bypass surgery and left femoral endarterectomy and left popliteal thrombectomy. She has a history of smoking for many years. She continues to smoke half a pack per day. She has dyslipidemia with a total cholesterol of 240 and LDL of 165. She is on atorvastatin 80 mg daily. COUNTS INCLUDE 234 BEDS AT THE [facility] Medical History Mild aortic valve stenosis LORE (obstructive sleep apnea) Chronic low back pain Lumbar spinal stenosis HTN (hypertension) Vitamin D deficiency HLD (hyperlipidemia) T2DM (type 2 diabetes mellitus) H. pylori infection CAD (coronary artery disease) Cyst (solitary) of breast Kidney calculi Arthritis Asthma HTN (hypertension) Diabetes Surgical History History of right-sided carotid endarterectomy (~11/2022) S/P aortogram History of esophagogastroduodenoscopy (EGD) Hx of colonoscopy History of breast surgery History of cardiac cath Family History Mother Diabetes Liver cancer Social History Household Members: Children and Friend(s) Household Members Other:: friend and adult son Housing: Apartment Are you a primary patient care coordinator to a significant other at home: No Do you presently have visiting nurse or other home services: No Alcohol intake: never Comment: pt sleeping Patient Tobacco Use Status: Current everyday Tobacco user Tobacco use type: Cigarette Cigarette Packs Per Day: 1 Cigarettes Per Day: 20.0 Years Smoked: 40 e-Cigarette/Vaping Use: Never Used Second Hand Smoke Exposure: Yes service: No Current occupational status: unemployed and disabled Review of Systems Const Denies fever(s) and Denies weight loss Card Denies chest pain Resp Denies cough and Denies hemoptysis GI Denies abdominal pain, Denies diarrhea and Denies nausea Musc Denies back pain Neuro Denies focal weakness Physical Exam Vital Signs: Last Vital Signs Pulse 83 07/19/23 14:51 BP 160/84 H 07/19/23 14:51 Pulse Ox 97 07/19/23 14:51 BMI result Body Mass Index 28.1 Const General: comfortable Nutritional Appearance: well nourished Orientation/consciousness: patient oriented x3 HEENT Head: No normal to inspection Mouth: moist mucous membranes Neck Neck: Yes supple and Yes no JVD Resp Auscultation: clear to auscultation bilaterally and no rales Cardio Jugular venous distension: no JVD Palpation: no palpable S3 and no palpable S4 Heart sounds: no rubs GI Palpation (GI): Soft to palpation and nontender Percussion: No Fluid wave present General: Yes no CVA tenderness Back/Spine/Pelvis Back: no CVA tenderness Skin General skin exam: no rashes or lesions noted Neuro General: patient oriented x3 Extrem General: Yes no pedal edema and No clubbing Results Reviewed Results Reviewed: 06/03/2023. Urine microalbumin creatinine ratio of 1341 Nephrology Results: Hgb 11.8 g/dl (12.0-16.0) L 07/06/23 WBC 5.9 X10*3/uL (4.8-10.8) 07/06/23 Plt Count 289 X10*3/uL (160-400) 07/06/23 Sodium 142 mmol/L (135-145) 07/06/23 Potassium 4.4 mmol/L (3.3-5.1) 07/06/23 Chloride 106 mmol/L (96-108) 07/06/23 Carbon Dioxide 30 mmol/L (22-29) H 07/06/23 BUN 13 mg/dL (9-16) 07/06/23 Creatinine 0.81 mg/dL (0.5-1.4) 07/06/23 Calcium 9.5 mg/dL (8.4-10.2) 07/06/23 Urine Creatinine 105.69 mg/dL 05/15/23 Assessment & Plan Assessment & Plan (1) HTN (hypertension): Code(s): I10 - Essential (primary) hypertension Category: Medical (2) PVD (peripheral vascular disease): Code(s): I73.9 - Peripheral vascular disease, unspecified Category: Medical (3) T2DM (type 2 diabetes mellitus): Code(s): E11.9 - Type 2 diabetes mellitus without complications Category: Medical Qualifiers: Diabetes mellitus senior care insulin use: without senior care use Diabetes mellitus complication status: with ophthalmic complications Diabetes mellitus complication detail: with diabetic retinopathy Diabetic retinopathy severity: with mild nonproliferative retinopathy Diabetes mellitus macular edema: with macular edema Laterality: bilateral Qualified Code(s): E11.3213 - Type 2 diabetes mellitus with mild nonproliferative diabetic retinopathy with macular edema, bilateral (4) Proteinuria: Code(s): R80.9 - Proteinuria, unspecified Category: Medical (5) Anemia: Code(s): D64.9 - Anemia, unspecified Category: Medical Plan . Rocío has a resistant hypertension in a setting of significant vascular disease. She probably has underlying renal artery stenosis. Back in 2021 renal angiogram did not reveal any stenosis. However the ultrasonogram was inconclusive. Based on the history and clinical findings we still need to rule out renal artery stenosis. I will arrange for renal angiogram. I have explained this to her In the meantime blood pressure is suboptimal therefore I will discontinue hydrochlorothiazide. Start Aldactazide 25/25 one a day. Recheck renal function and potassium in a week's time. I had a lengthy discussion with her regarding low-salt diet and smoking cessation. At present renal function is stable. She has non nephrotic range proteinuria most likely due to hypertensive diabetic kidney disease. She is at risk for ongoing renal injury from suboptimally controlled blood pressure. Continue to maximize CHERRI inhibition for renal protection. She will benefit from SGLT2 inhibitors. I will see her again in the next 2 weeks and titrate the antihypertensive medication.. Thank you . Orders: Orders Comprehensive Met. Panel 1 Week I10 - Essential (primary) hypertension, I65.23 - Occlusion and stenosis of bilateral carotid arteries Complete Blood Count no Diff 1 Week I10 - Essential (primary) hypertension, I65.23 - Occlusion and stenosis of bilateral carotid arteries IR angio renal BI Today I10 - Essential (primary) hypertension Medications: New spironolacton-hydrochlorothiaz 25-25 mg 1 tab PO DAILY 90 tabs 0RF Discontinued hydrochlorothiazide Must call to schedule a cardiology appointment for more refills - overdue Discontinued Reason: Doctor's Order 25 mg PO DAILY 30 tabs 0RF Coding Level of Care Code New Pt Level 5 (87169) Diagnoses Hypertension, unspecified type I10 PVD (peripheral vascular disease) I73.9 Type 2 diabetes mellitus with both eyes affected by mild nonproliferative retinopathy and macular edema, without long-term current use of insulin E11.3213 Diabetes mellitus terminal block assembler insulin use: without terminal block assembler use Diabetes mellitus complication status: with ophthalmic complications Diabetes mellitus complication detail: with diabetic retinopathy Diabetic retinopathy severity: with mild nonproliferative retinopathy Diabetes mellitus macular edema: with macular edema Laterality: bilateral Proteinuria R80.9 Anemia D64.9
== END 2023-07-19 15:15 | disposition home or self-care (01) ==
LOC: HO.HKAM 14:48
PROVIDERS: Referring Provider Family Medicine; Visit Provider Internal Medicine Hypertension Specialist
DX: I10 Essential (primary) hypertension (principal); I73.9 Peripheral vascular disease, unspecified; E11.3213 Type 2 diabetes mellitus with mild nonproliferative diabetic retinopathy with macular edema, bilateral; R80.9 Proteinuria, unspecified; D64.9 Anemia, unspecified
CPT/HCPCS: 99204

== ENCOUNTER → 2023-07-19 14:48 | Outpatient (BNVA) | payer MEDICAID, SELFPAY | PROVIDERS: Referring Provider Family Medicine; Visit Provider Internal Medicine Hypertension Specialist | DX: I10 Essential (primary) hypertension (principal); I73.9 Peripheral vascular disease, unspecified; E11.3213 Type 2 diabetes mellitus with mild nonproliferative diabetic retinopathy with macular edema, bilateral; R80.9 Proteinuria, unspecified; D64.9 Anemia, unspecified | CPT/HCPCS: 99202 ==

== ENCOUNTER 2023-07-24 10:50 | Outpatient (AMB) | payer MEDICAID, SELFPAY ==
--- NOTE | 2023-07-24 11:21 | A.SPINEOV_ITS ---
Intake Visit Reasons: Lumbar Stenosis Intake Note: Ms. Terri Schmid is here today c/o back pain. It Infrastructure Project Manager Required: Yes It Infrastructure Project Manager Name: Tablet Allergies latex [LATEX] Allergy (Severe, Verified 07/24/23 11:21) RASH naproxen [From NAPROSYN] Adverse Reaction (Intermediate, Verified 07/24/23 11:21) TACHYCARDIA Assessment & Plan Assessment & Plan (1) Lumbar spinal stenosis: Code(s): M48.061 - Spinal stenosis, lumbar region without neurogenic claudication Category: Medical Plan Dear T[place], Thank you for referring Mrs Terri Schmid to our office today. This is a 62-year-old diabetic female who presents to the office today for evaluation of low back pain that has been going on for 4 years, going down both legs into her calves. It is aggravated with standing and walking and can get better if she sits. To this point she has had no dedicated treatment other than just trying oxycodone and Tylenol. She can not take anti-inflammatories because of her medical conditions including hypertension and kidney disease. She has had no chiropractic, injections or physical therapy to date. PMH: She is a diabetic, her daughter is here with her today helping to interpret, her last A1c in the computer here was 10. That was in May 2023. She has a history of uncontrolled hypertension, she is noncompliant with her regimen. Her daughter tells me she is noncompliant with her medications. It is not unusual for her to have a systolic blood pressure as high as 230. She has some kind of heart arrhythmia and is followed at [facility] with cardiology. She also has coronary artery disease. She has an extensive vascular history including left fem-pop bypass, she has chronic occlusion of the SFA as well seen on recent duplex in 2022, right carotid endarterectomy. Despite this she continues to smoke. She has anxiety, history of infections of her lower extremities and ulcerations. That seems to have gotten better after the bypass her daughter tells me. Social hx: She has smoking a pack or more a day, no alcohol or illicit drug use Medications: She takes aspirin, Plavix, Tylenol, amitriptyline, amlodipine, atorvastatin, carvedilol, clonidine, cyclobenzaprine, Colace, Lexapro, iron, Flovent, gabapentin, hydralazine, insulin, lisinopril, metformin, metoclopramide, mirtazapine, mometasone, multivitamin, omeprazole, oxycodone, pantoprazole, pioglitazone, polyethylene glycol, spironolactone Allergies: Latex and naproxen Physical exam: She is here with her daughter today who is helping interpret, she has in no acute distress, she is able to stand up out of a chair without any issues. She describes back pain and tenderness across her lower lumbar region. She has a lot of pain with movement of her legs but has no focal motor deficits. Reflexes diffusely absent. On her abdominal exam, I do not see any evidence of scars with the exception of a well healed scar in the left groin region. Imaging review: Lumbar MRI done at [facility] shows grade 1 spondylolisthesis at L4-5 with bilateral lateral recess stenosis and moderate foraminal stenosis. Impression: 62-year-old female with diabetes, complicated medical history, vasculopathy presents with back pain and bilateral lower extremity pain with walking, better when she sits. I think her symptoms are coming from the L4-5 spondylolisthesis, I suspect it has an unstable segment. I am going to send her for flexion-extension x-rays to rule this out. Obviously there could be some overlap with vascular issues in her legs, specifically on the right her last duplex did show some chronic occlusion of the SFA and femoral branch, but according to the study the left side where she had the bypass was patent. Unfortunately, given all of her medical issues and her noncompliance with her health regimens, this is not something we could take to the operating room as we generally would and do lumbar fusion. She would be very high risk given her elevated A1c, and extremely high blood pressure. There are nonsurgical options but I do not think any of them would be useful for her. Specifically I do not think there is a role for physical therapy given that she has a spondylolisthesis and what we suspect is an unstable segment there. There is no way for therapy to correct that. With regard to cortisone injections, this would only further elevate her blood sugar and her blood pressure. I do not think that has an option either. Her daughter tells me that her PCP is trying to reorganize some of her medications so that she can be more compliant with them. I told her to check back with us in 3-4 months and have her A1c repeated and if we can get these things under better control is possible we can consider the option of surgery. Thank you for allowing us to care for your patient. The total time spent with this visit with this patient was 45 minutes reviewing history, physical exam, lumbar imaging review, and implementation of treatment plan or further diagnostic testing Darrius Enriquez MD,PhD [facility] Orders: Orders XR lumbar spine 4V min Today M48.061 - Spinal stenosis, lumbar region without neurogenic claudication Coding Level of Care Code New Pt Level 4 (37978) Diagnoses Lumbar spinal stenosis M48.061
== END 2023-07-24 11:43 | disposition home or self-care (01) ==
PROVIDERS: PCP Family Medicine; Referring Provider Nurse Practitioner Family; Visit Provider Physician Assistant
DX: M48.061 Spinal stenosis, lumbar region without neurogenic claudication (principal)
CPT/HCPCS: 99204

== ENCOUNTER 2023-07-24 10:50 | Outpatient (REF) | payer MEDICAID, SELFPAY ==
--- NOTE | ~2023-07-24 | XR_ITS ---
EXAMINATION: XR LUMBOSACRAL SPINE WITH OBLIQUES CLINICAL INFORMATION: Spinal stenosis lumbar region without neurogenic claudication. COMPARISON: 06/12/2023. TECHNIQUE: 4 views of the lumbar spine inclusive of lateral flexion and extension views. FINDINGS: Mild rightward curvature of the lumbar spine. Redemonstration of right vascular stent. Redemonstration of mild multilevel lumbar spondylosis with mild loss of disc space height at L4-L5. Grade 1 anterolisthesis of L4 on L5 with flexion and extension. Facet arthritis in the lower lumbar spine. XR/XR lumbar spine 4V min IMPRESSION: 1. Mild multilevel lumbar spondylosis with mild loss of disc space height at L4-L5. 2. Grade 1 anterolisthesis of L4 on L5 with flexion and extension.
== END 2023-07-24 10:51 | disposition home or self-care (01) ==
LOC: HO.HOSX 10:50
PROVIDERS: PCP Family Medicine; Visit Provider Physician Assistant
DX: M48.061 Spinal stenosis, lumbar region without neurogenic claudication (principal)
CPT/HCPCS: 72110; 99212

== ENCOUNTER 2023-07-26 09:25 | Outpatient (REF) | payer MEDICAID, SELFPAY ==
[2023-07-26 11:38] LABS: Hemoglobin 11.3 g/dl (12.0-16.0); Mean Corpuscular HGB Conc 33.2 g/dl (31.0-35.0); Mean Corpuscular Hemoglobin 30.3 pg (27.0-33.0); Mean Corpuscular Volume 91.2 fL (80.0-98.0); Mean Platelet Volume 9.5 fL (9.4-12.3); Platelet Count 292 X10*3/uL (160-400); Red Blood Count 3.73 X10*6/uL (4.20-5.50); Red Cell Distribution Width 13.4 % (11.0-16.0); White Blood Count 5.5 X10*3/uL (4.8-10.8)
[2023-07-26 11:59] LABS: Alanine Aminotransferase 7 U/L (0-31); Albumin Level 3.3 g/dL (3.5-5.0); Alkaline Phosphatase 76 U/L (39-117); Anion Gap 8 (12-20); Aspartate Amino Transferase 11 U/L (5-31); Bilirubin Total 0.4 mg/dL (0.0-1.0); Blood Urea Nitrogen 10 mg/dL (9-16); Calcium 9.6 mg/dL (8.4-10.2); Carbon Dioxide 31 mmol/L (22-29); Chloride 104 mmol/L (96-108); Estimated Glomerular Filt Rate > 60; Glucose Random 287 mg/dL (60-115); Potassium 4.3 mmol/L (3.3-5.1); Sodium 139 mmol/L (135-145); Total Protein 5.9 g/dL (6.5-8.0)
== END 2023-07-26 09:26 | disposition home or self-care (01) ==
LOC: HO.HHCL 09:25
PROVIDERS: Visit Provider Internal Medicine Hypertension Specialist
DX: I10 Essential (primary) hypertension (principal); I65.23 Occlusion and stenosis of bilateral carotid arteries
CPT/HCPCS: 36415; 80053; 85027

== ENCOUNTER → 2023-07-27 11:39 | Outpatient (BNVA) | payer MEDICAID, SELFPAY | PROVIDERS: PCP Family Medicine; Visit Provider Internal Medicine Hypertension Specialist | DX: I10 Essential (primary) hypertension (principal); I73.9 Peripheral vascular disease, unspecified; E11.3213 Type 2 diabetes mellitus with mild nonproliferative diabetic retinopathy with macular edema, bilateral; R80.9 Proteinuria, unspecified; D64.9 Anemia, unspecified | CPT/HCPCS: 99212 ==

== ENCOUNTER 2023-07-28 02:26 | Inpatient (IN) | payer MEDICAID, SELFPAY ==
[2023-07-28] VITALS (19 sets, daily range): BP systolic 120–238; BP diastolic 45–111; PULSE 67–100; RESP 12–19; TEMP 35.9–37.1; O2SAT 93–100; BMI 27.9
--- NOTE | 2023-07-28 | ECG_ITS ---
Test Reason : LIRIANO,HTN Blood Pressure : / mmHG Vent. Rate : 095 BPM Atrial Rate : 095 BPM P-R Int : 136 ms QRS Dur : 100 ms QT Int : 358 ms P-R-T Axes : 000 -24 154 degrees QTc Int : 449 ms Normal sinus rhythm Incomplete right bundle branch block Left ventricular hypertrophy with repolarization abnormality ( [place] product ) Abnormal ECG When compared with ECG of 06-JUL-2023 11:16, Lateral ST depression more prominent Referred By: Generic ED Physician Electronically Signed By:JM DU
--- NOTE | 2023-07-28 | ECG_ITS ---
Test Reason : HTN Blood Pressure : / mmHG Vent. Rate : 077 BPM Atrial Rate : 077 BPM P-R Int : 144 ms QRS Dur : 084 ms QT Int : 410 ms P-R-T Axes : 000 -26 161 degrees QTc Int : 463 ms Normal sinus rhythm Left ventricular hypertrophy with repolarization abnormality ( R in aVL ) Abnormal ECG When compared with ECG of 28-JUL-2023 02:32, No significant change was found Referred By: Nguyen Carrera Electronically Signed By:JM DU
--- NOTE | ~2023-07-28 | CT_ITS ---
EXAMINATION: CT HEAD WITHOUT CONTRAST CLINICAL INFORMATION: Hypertension and headaches. COMPARISON: 12/16/2022. TECHNIQUE: Contiguous axial imaging was performed from the skull base to vertex without intravenous administration of contrast. This CT examination was performed using dose optimization techniques as appropriate, variously including the following: *Automated exposure control *Adjustment of mA and/or kV according to patient size (this includes techniques or standardized protocols for targeted exams where dose is matched to indication/reason for exam; i.e. extremities or head) *Use of iterative reconstruction technique DLP: 595 mGy-cm FINDINGS: The lateral, third and fourth ventricles are normally outlined. The cortical sulci and basal cisterns are normally outlined as well. There is no acute territorial defect, hemorrhage or midline shift. The extra-axial spaces are unremarkable. Calvarium/scalp: Intact. Maxillofacial sinuses and mastoids: Clear as visualized. CT/CT head/brain wo IV con IMPRESSION: No acute intracranial pathology.
[2023-07-28 02:47] LABS: MANUAL DIFF FLAG NO
[2023-07-28 02:48] LABS: Basophils Absolute Auto 0.1 X10*3/uL (0.0-0.2); Basophils Percent Auto 0.6 % (0-2); Eosinophils Absolute Auto 0.2 X10*3/uL (0.0-0.4); Hematocrit 34.2 % (37.0-47.0); Hemoglobin 11.7 g/dl (12.0-16.0); Imm Gran Abs Auto 0.01 X10*3/uL (0.00-0.03); Imm Gran Pct Auto 0.1 % (0.0-0.4); Lymphocytes Absolute Auto 2.3 X10*3/uL (1.2-4.9); Lymphocytes Percent Auto 28.3 % (20-40); Mean Corpuscular HGB Conc 34.2 g/dl (31.0-35.0); Mean Corpuscular Hemoglobin 30.2 pg (27.0-33.0); Mean Corpuscular Volume 88.4 fL (80.0-98.0); Mean Platelet Volume 9.1 fL (9.4-12.3); Monocytes Absolute Auto 0.5 X10*3/uL (0.1-1.2); Monocytes Percent Auto 5.7 % (2-11); Neutrophils Absolute Auto 5.1 x10*3/uL (2.0-8.3); Neutrophils Percent Auto 62.3 % (45-73); Platelet Count 279 X10*3/uL (160-400); Red Blood Count 3.87 X10*6/uL (4.20-5.50); Red Cell Distribution Width 13.3 % (11.0-16.0); White Blood Count 8.1 X10*3/uL (4.8-10.8)
--- NOTE | 2023-07-28 02:51 | PC.NURSE ---
MD Carrera aware of patient's high BP and symptoms
--- NOTE | 2023-07-28 03:04 | ED.HA ---
HPI - Headache General Chief Complaint: Headache Stated Complaint: headache Time Seen by Provider: 07/28/23 02:54 Source: patient and EMS Limitations: no limitations History of Present Illness ED Provider: Dr. Nguyen Carrera HPI Narrative: Patient comes to the emergency room complaining of severe headache starting 4 hours ago. Patient states that she is known to have hypertension, states she is compliant with her medications. Patient states that around 23:00 last night patient woke up with severe frontal headache, it was hoping that the head with cell resolved but it actually got worse. Patient denies visual changes, no chest pain or shortness of breath. On arrival, patient's blood pressure 238/111, repeat blood pressure 243/106 Related Data Home Medications ?Medication ?Instructions ?Recorded ?Confirmed metformin 1,000 mg tablet 1,000 mg PO BID 12/22/19 11/23/22 aspirin 81 mg tablet,delayed 81 mg PO DAILY 01/02/20 11/23/22 release (Adult Low Dose Aspirin) atorvastatin 80 mg tablet (Lipitor) 80 mg PO BEDTIME 01/02/20 11/23/22 carvedilol 25 mg tablet (Coreg) 25 mg PO BID 01/02/20 11/23/22 escitalopram oxalate 20 mg tablet 20 mg PO DAILY 01/02/20 11/23/22 (Lexapro) gabapentin 800 mg tablet 800 mg PO TID 01/02/20 11/23/22 lisinopril 40 mg tablet 40 mg PO DAILY 01/02/20 11/23/22 mirtazapine 45 mg tablet 45 mg PO BEDTIME 01/02/20 11/23/22 multivitamin 1 tab PO DAILY 01/02/20 11/23/22 acetaminophen 650 mg 650 mg PO Q8H PRN Pain (Scale 01/16/21 11/23/22 tablet,extended release (Arthritis Score 1-3) Pain Relief (acetaminophen) ER) amlodipine 10 mg tablet 10 mg PO BEDTIME 01/16/21 11/23/22 fluticasone propionate 110 2 puff inhalation BID 01/16/21 11/23/22 mcg/actuation HFA aerosol inhaler (Flovent HFA) fluticasone propionate 50 2 spray intranasal DAILY 01/16/21 11/23/22 mcg/actuation nasal spray,suspension pantoprazole 40 mg tablet,delayed 40 mg PO BID@0630,1630 01/16/21 11/23/22 release (Protonix) blood sugar diagnostic (FreeStyle #10 ea 03/30/21 10/03/22 Lite Strips) clotrimazole 1 % topical cream 1 appl topical BID 03/30/21 11/23/22 insulin degludec 100 unit/mL (3 5 unit subcut DAILY 10/03/22 11/23/22 mL) subcutaneous pen (Tresiba FlexTouch U-100 insulin) amitriptyline 50 mg tablet 50 mg PO BEDTIME 11/07/22 11/23/22 cyclobenzaprine 10 mg tablet 10 mg PO Q8H PRN Muscle Spasm 11/23/22 11/23/22 metoclopramide HCl 10 mg tablet 10 mg PO Q6H PRN Nausea 11/23/22 11/23/22 (Reglan) mometasone 100 mcg/actuation HFA 2 puff inhalation BID 06/12/23 aerosol inhaler (Asmanex HFA) oxycodone 5 mg tablet 5 mg PO PRN severe pain 06/12/23 omeprazole 20 mg capsule,delayed 40 mg PO DAILY 07/19/23 release Previous Rx's ?Medication ?Instructions ?Recorded ferrous sulfate 325 mg (65 mg 325 mg PO BID #60 tabs 05/24/20 iron) tablet clopidogrel 75 mg tablet (Plavix) 75 mg PO DAILY #30 tabs 12/02/20 pioglitazone 15 mg tablet 15 mg PO DAILY 30 days #30 tabs 12/02/20 albuterol sulfate 2.5 mg/3 mL 2.5 mg (3 mL) inhalation Q4H PRN 01/19/21 (0.083 %) solution for nebulization shortness of breath/wheeze #100 mL lancets 33 gauge (TRUEplus Lancets) #100 ea 07/26/21 hydralazine 50 mg tablet 50 mg PO TID #3 tabs 09/21/21 clonidine 0.2 mg/24 hr weekly 1 patch transdermal QWEEK #4 ea 03/09/22 transdermal patch docusate sodium 100 mg capsule 100 mg PO BID PRN Constipation #14 04/17/22 (Colace) caps polyethylene glycol 3350 17 17 g PO DAILY #238 grams 04/17/22 gram/dose oral powder (Miralax) spimblhert-rmnxgmstuhcnn-dujwtkqu 1 tab PO Q6H PRN haeadace #20 tabs 12/17/22 50 mg-325 mg-40 mg tablet spironolactone 25 1 tab PO DAILY #90 tabs 07/19/23 mg-hydrochlorothiazide 25 mg tablet Allergies Allergy/AdvReac Type Severity Reaction Status Date / Time latex [LATEX] Allergy Severe RASH Verified 07/28/23 02:34 naproxen [From NAPROSYN] AdvReac Intermediate TACHYCARDIA Verified 07/28/23 02:34 Review of Systems Review of Systems: Constitutional : No Weight loss, No Fever, No Chills, No Night Sweats, No Fatigue, No Malaise ENT/Mouth : No Hearing loss, No Ear Pain, No Nasal Congestion, No Sinus Pain, No Hoarseness, No sore throat, No Rhinorrhea, No Swallowing Difficulty Eyes: No Eye Pain, No Swelling, No Redness, No Foreign Body, No Discharge, No Vision Changes Cardiovascular : No Chest Pain, No SOB, No Dyspnea on Exertion, No Orthopnea, No Edema, No Palpitations, complaining of high blood pressure Respiratory : No Cough, No Sputum, No Wheezing, No Smoke Exposure, No Dyspnea Gastrointestinal : No Nausea, No Vomiting, No Diarrhea, No Constipation, No abdominal Pain, No Hematochezia, No Melena Genitourinary : no irregular bleeding, No Dysuria, No Urinary Frequency, No Hematuria, No Urinary Incontinence, No Urgency, No Flank Pain, No Urinary Flow Changes, No Hesitancy Musculoskeletal : No joint pain, No Myalgias, No Joint Swelling Skin : No Skin Lesions, No rash Neuro : No Weakness, No Numbness, No Paresthesias, No Loss of Consciousness, No Dizziness, complaining of severe Headache Psych : No Anxiety/Panic, No Depression, No SI/HI/AH/VH, No Social Issues, Heme/Lymph: No Bruising, No Bleeding,No Lymphadenopathy Endocrine : No Polyuria, No Polydipsia, No Temperature Intolerance [facility] Past Medical History Medical History Mild aortic valve stenosis LORE (obstructive sleep apnea) Chronic low back pain Lumbar spinal stenosis HTN (hypertension) Vitamin D deficiency HLD (hyperlipidemia) T2DM (type 2 diabetes mellitus) H. pylori infection CAD (coronary artery disease) Cyst (solitary) of breast Kidney calculi Arthritis Asthma HTN (hypertension) Diabetes Surgical History History of right-sided carotid endarterectomy (~11/2022) S/P aortogram History of esophagogastroduodenoscopy (EGD) Hx of colonoscopy History of breast surgery History of cardiac cath Family History Family History Mother Diabetes Liver cancer Social History Social History Household Members: Children and Friend(s) Household Members Other:: friend and adult son Housing: Apartment Are you a primary acute care assistant to a significant other at home: No Do you presently have visiting nurse or other home services: No Alcohol intake: never Comment: pt sleeping Patient Tobacco Use Status: Current everyday Tobacco user Tobacco use type: Cigarette Cigarette Packs Per Day: 1 Cigarettes Per Day: 20.0 Years Smoked: 40 Smoked in Last 30 Days: No e-Cigarette/Vaping Use: Never Used Second Hand Smoke Exposure: Yes Use of substances other than those prescribed or required for medical reasons: No Advance Directives: No Advance Directives Information Provided: Yes Do you have a plan to hurt others: No Plan Patient : No service: No Current occupational status: unemployed and disabled Physical Exam Vital Signs: Vital Signs: Last Vital Signs Temp 97.6 F 07/28/23 05:31 Pulse 75 07/28/23 05:31 Resp 18 07/28/23 05:31 BP 122/45 L 07/28/23 05:31 Pulse Ox 95 07/28/23 05:31 O2 Del Method Room Air 07/28/23 05:31 BMI result Body Mass Index 27.9 Const: Other: Appearance: Alert. Oriented X3. Patient looks uncomfortable Eyes: Pupils equal, round and reactive to light. ENT: Pharynx normal. Neck: Normal inspection. Neck supple. No lymph nodes noted. No crepitus CVS: Normal heart rate and rhythm. Pulses normal. Normal S1 and S2 Respiratory: No respiratory distress. Breath sounds normal. No Wheezing. No rales Abdomen: Soft and nontender. No rigidity. No distention. Skin: Skin warm and dry. Normal skin color. Normal skin turgor. Extremities: No lower extremity edema. No Lacerations. No Rash Neuro: Oriented X 3. No motor deficit. No sensory deficit. Moving all extremities. No slurred speech. CN 2 through 12 grossly intact Psych: calm, cooperative, normal affect Course Course Course Narrative: -all of patient's labs pending -patient had a severe headache with severe hypertension, CT scan pending to rule out intracranial bleed -current blood pressure 146/106, patient receiving 20 mg IV of labetalol, 4 mg of morphine and Zofran 4 mg -reviewing patient's home medications for hypertension, patient takes: carvedilol 25 mg b.i.d. Hydralazine 50 mg t.i.d. Spironolactone hydrochlorothiazide 25-25 mg daily in the morning Amlodipine 10 mg tablet oral daily Lisinopril 40 mg tablet oral daily Medications Administered Discontinued Medications Generic Name Dose Route Start Last Admin Trade Name Freq PRN Reason Stop Dose Admin Labetalol HCl 20 mg 07/28/23 03:03 07/28/23 03:07 Labetalol Hcl 100 Mg/20 Ml Vial IVPUSH 07/28/23 03:04 20 mg ONCE ONE Administration Labetalol HCl 10 mg 07/28/23 03:42 07/28/23 03:57 Labetalol Hcl 100 Mg/20 Ml Vial IVPUSH 07/28/23 03:43 10 mg ONCE ONE Administration Morphine Sulfate 4 mg 07/28/23 03:03 07/28/23 03:07 Morphine Sulfate 4 Mg/Ml Cartridge IVPUSH 07/28/23 03:04 4 mg ONCE ONE Administration Protocol Morphine Sulfate 4 mg 07/28/23 04:03 07/28/23 04:07 Morphine Sulfate 4 Mg/Ml Cartridge IVPUSH 07/28/23 04:04 4 mg ONCE ONE Administration Protocol Ondansetron HCl 4 mg 07/28/23 03:03 07/28/23 03:07 Ondansetron Hcl 4 Mg/2 Ml Vial IVPUSH 07/28/23 03:04 4 mg ONCE ONE Administration Medical Decision Making Medical Decision Making [facility] Narrative: -interpretation EKG, normal sinus rhythm, heart rate 95, suspicious ST segment elevation only in V1 , no acute changes in inferior leads, lateral leads V4 through V6 have a [address] segment depression with T-wave inversion, QTC 449 -initial troponin negative -patient received 1 dose of 20 mg IV labetalol, blood pressure improved to the 180s. Patient received a 2nd dose of IV metoprolol, this time 10 mg, now a total of 30 mg IV -patient's blood pressure improved to 166/66 systolic. Patient states that she has no chest pain, no shortness of breath, -headache improving my interpretation of head CT: No intracranial bleed -my interpretation of EKG 2.: Normal sinus rhythm, heart rate 77, no significant EKG changes from previous EKG, ST segment depression before V5 V6, less pronounced, T-wave inversion still present, QTC 463 -2nd troponin negative, patient continues being free of chest -I discussed the EKG changes labs and patient with Dr. Vizcaino from Cardiology, at this time, no need to start heparin, patient will need an echocardiogram -patient had an echo in 2022 mole ejection fraction. However, due to the new recent changes and high blood pressure, recommendations: New echo -I discussed the patient with Dr. Jj from the hospitalist team, patient being admitted Differential Diagnosis Differential Diagnoses: The differential diagnosis associated with the presentation includes (Hypertensive emergency, intracranial bleed) Lab Data MDM Lab Attestation statement: I reviewed the patient's lab results. 07/28/23 02:42 07/28/23 02:43 Labs: Lab Results 07/28/23 07/28/23 07/28/23 Range/Units 02:42 02:43 04:46 WBC 8.1 (4.8-10.8) X10*3/uL RBC 3.87 L (4.20-5.50) X10*6/uL Hgb 11.7 L (12.0-16.0) g/dl Hct 34.2 L (37.0-47.0) % MCV 88.4 (80.0-98.0) fL MCH 30.2 (27.0-33.0) pg MCHC 34.2 (31.0-35.0) g/dl RDW 13.3 (11.0-16.0) % Plt Count 279 (160-400) X10*3/uL MPV 9.1 L (9.4-12.3) fL Immature Gran % (Auto) 0.1 (0.0-0.4) % Neut % (Auto) 62.3 (45-73) % Lymph % (Auto) 28.3 (20-40) % Harmon % (Auto) 5.7 (2-11) % Eos % (Auto) 3.0 (0-4) % Baso % (Auto) 0.6 (0-2) % Lymph # (Auto) 2.3 (1.2-4.9) X10*3/uL Harmon # (Auto) 0.5 (0.1-1.2) X10*3/uL Eos # (Auto) 0.2 (0.0-0.4) X10*3/uL Baso # (Auto) 0.1 (0.0-0.2) X10*3/uL Abs Immat Gran (auto) 0.01 (0.00-0.03) X10*3/uL Absolute Neuts (auto) 5.1 (2.0-8.3) x10*3/uL Absolute Nucleated RBC 0.000 (0.0-0.012) X10*3/uL Nucleated RBC % (auto) 0.0 (0.0-0.2) /100WBC Hold Blue Top SEE NOTE Sodium 139 (135-145) mmol/L Potassium 3.7 (3.3-5.1) mmol/L Chloride 103 (96-108) mmol/L Carbon Dioxide 29 (22-29) mmol/L Anion Gap 11 L (12-20) BUN 20 H (9-16) mg/dL Creatinine 0.99 (0.5-1.4) mg/dL Estim Creat Clear Calc 50.2 Estimated GFR 57 Random Glucose 267 H (60-115) mg/dL Calcium 9.3 (8.4-10.2) mg/dL Total Bilirubin 0.3 (0.0-1.0) mg/dL AST 13 (5-31) U/L ALT 8 (0-31) U/L Alkaline Phosphatase 83 (39-117) U/L Troponin I High Sens 5.0 9.3 D (<3.5-17.0) ng/L Total Protein 6.6 (6.5-8.0) g/dL Albumin 3.6 (3.5-5.0) g/dL Independent Interpretation I performed an independent interpretation of an: EKG and CT Scan Radiology Impression Discussion of test interpretation with radiology: I have reviewed the radiologist's reading. Radiologist Impression: The lateral, third and fourth ventricles are normally outlined. The cortical sulci and basal cisterns are normally outlined as well. There is no acute territorial defect, hemorrhage or midline shift. The extra-axial spaces are unremarkable. Calvarium/scalp: Intact. Maxillofacial sinuses and mastoids: Clear as visualized. CT/CT head/brain wo IV con IMPRESSION: No acute intracranial pathology. Critical Care Time Critical Care Time Critical Care Time: Yes Total Critical Care Time: 75 Attestation: I have personally provided critical care time. Time includes review of lab data, radiology results, discussion with consultants, and monitoring for potential decompensation. Intervention performed as documented. Discharge Plan Discharge Clinical Impression: Hypertensive emergency, Headache, Acute electrocardiogram changes Patient Disposition: Admitted As Inpatient Print Language: Arabic
[2023-07-28] MEDS: ondansetron HCL 4 MG/2 ML VIAL IVPUSH (03:07)
[2023-07-28] MEDS: Labetalol HCL 100 MG/20 ML VIAL 20 MG IVPUSH (03:07)
[2023-07-28] MEDS: Morphine Sulfate 4 MG/ML CARTRIDGE IVPUSH ×2 (03:07→04:07)
[2023-07-28 03:20] LABS: Alanine Aminotransferase 8 U/L (0-31); Albumin Level 3.6 g/dL (3.5-5.0); Alkaline Phosphatase 83 U/L (39-117); Anion Gap 11 (12-20); Aspartate Amino Transferase 13 U/L (5-31); Bilirubin Total 0.3 mg/dL (0.0-1.0); Blood Urea Nitrogen 20 mg/dL (9-16); Calcium 9.3 mg/dL (8.4-10.2); Carbon Dioxide 29 mmol/L (22-29); Chloride 103 mmol/L (96-108); Creatinine Clr Calc Pharmacy 50.2; Estimated Glomerular Filt Rate 57; Glucose Random 267 mg/dL (60-115); Potassium 3.7 mmol/L (3.3-5.1); Sodium 139 mmol/L (135-145); Total Protein 6.6 g/dL (6.5-8.0)
--- NOTE | 2023-07-28 03:28 | PC.NURSE ---
pt returned from CT at this time. BP continues to trend downward post medication administration.
[2023-07-28] MEDS: Labetalol HCL 100 MG/20 ML VIAL 10 MG IVPUSH (03:57)
--- NOTE | 2023-07-28 03:59 | PC.NURSE ---
pt medicated per provider order. effectiveness pending.
--- NOTE | 2023-07-28 04:08 | PC.NURSE ---
pt verbalizing increase in headache - requesting medication. dr. bailey notified/aware. medication administered per provider order. effectiveness pending.
--- NOTE | 2023-07-28 04:47 | PC.NURSE ---
repeat trop obtained/sent to lab.
[2023-07-28 05:12] LABS: Troponin-I High Sensitivity 9.3 ng/L (<3.5-17.0)
--- NOTE | 2023-07-28 07:00 | CA_ITS ---
Transthoracic Echocardiogram Patient (Last, First, Middle): Rocío Hallman, Gender: Female Date of : 1960 Age: 62 Procedure Date: 07/28/2023 Procedure Type: Transthoracic Echocardiogram Location: ER Height: 152.4 cm Weight: 64.86 kg BSA: 1.62 m2 Heart Rate: bpm BP: 122 / 45 mmHg Home Assessment Nurse: Referring MD: Nguyen Carrera MD Symptoms: HTN emergency Study Quality: Fair ECG Rhythm: Sinus Conclusions: - The left ventricular systolic function is normal. The calculated ejection fraction is 62% by biplane method. - There is moderately increased left ventricular wall thickness. - The basal inferior segment is hypokinetic. - There is mild to moderate aortic valve stenosis. Findings Left Ventricle Normal left ventricular cavity size. There is moderately increased left ventricular wall thickness. The left ventricular systolic function is normal. The calculated ejection fraction is 62% by biplane method. Evidence suggests grade I (mild) diastolic dysfunction. LV peak GLS -16.9%. Wall Motion Rest Echo Findings The basal inferior segment is hypokinetic. Right Ventricle Normal right ventricular cavity size and systolic function. Atria The left atrium is mildly dilated. The right atrium is normal in size. Aortic Valve There is severe calcification of the aortic valve. There is mild to moderate aortic valve stenosis. There is no aortic valve regurgitation. Dimensionless index 0.36. Mitral Valve There is mild mitral annular calcification. There is trace mitral valve regurgitation. There is no mitral valve stenosis. Pulmonic Valve The pulmonic valve is likely normal. Tricuspid Valve Normal tricuspid valve structure. There is mild tricuspid valve regurgitation. There is no evidence of pulmonary hypertension. Great Vessels The asc aorta is normal in size. Small plaque is seen in the sino tubular ridge. Venous The inferior vena cava is normal in size and collapses less than 50% with inspiration. Pericardium/Pleural There is no evidence of pericardial effusion. Prior Study Comparison No significant change compared to prior study dated: 05/11/2022. Wall motion appears similar. Measurements 2D Linear Measurements IVSd: 1.40 0.6-0.9/0.6-1.0 cm LVIDd: 3.29 3.9-5.3/4.2-5.9 cm LVIDd Index: 2.03 2.4-3.2/2.2-3.1 cm/m2 LVIDs: 2.07 2.0-3.6 cm LVPWd: 1.40 0.7-1.1 cm LA Diam: 3.70 2.7-3.8/3.0-4.0 cm LAIDs Index: 2.28 1.5-2.3 cm/m2 LV Mass: 197.87 67-162/88-224 g LV Mass Index: 122.14 43-95/49-115 g/m2 LVOT Diam: 1.90 3.0+(-)1.3 cm 2D Systolic Function EF 4C: 58.90 >55% EF 2C: 64.60 >55% EF BiP: 61.80 >55% Mitral Valve MV VTI: 0.35 MV Pk Kuldip: 1.06 MV Mn Kuldip: 0.68 MV Pk Grad: 4.00 MV Mn Grad: 2.00 MV Pk E: 0.96 MV PK A: 1.26 MV Decel Time: 219.00 E/A: 0.80 E'Lateral: 5.55 E'Medial: 4.03 E/E' Med: 23.80 E/E' Lat: 17.30 PHT: 64.00 MVA PHT: 3.44 MVA Continuity: 2.20 Decel Bertie: 4.39 Aortic Valve AoV Pk Kuldip: 2.32 AoV Mn Kuldip: 1.45 AoV VTI: 0.58 AoV Pk Grad: 22.00 Aov Mn Grad: 10.00 YESIKA Cont.VTI: 1.35 LVOT LVOT Pk Kuldip: 0.83 LVOT Mn Kuldip: 0.57 LVOT VTI: 0.27 LVOT Pk Grad: 3.00 LVOT Mn Grad: 2.00 LVOT Diam: 1.90 LVOT Area: 2.84 Diastolic Function MV Pk E: 0.96 MV Pk A: 1.26 E/A: 0.80 E'Medial: 4.03 E/E' Med: 23.80 E' Laterial: 5.55 E/E' Lat: 17.30 Right Ventricle TAPSE (mm): 24.80 TVS' Kuldip: 10.70 Tricuspid Valve TR Pk Kuldip: 2.92 TR Pk Grad: 34.00 Great Vessels Aorta Sinus of Valsalva: 2.60 2.0-3.5 cm Ao Asc: 3.40 2.1-3.4 cm Pulmonary Valve PV Pk Kuldip: 1.08 Peak PV Grad: 5.00 Updated in Other Vendor System with Status of Final Clifton Vizcaino MD electronically signed on 07/28/2023 12:12:05 PM with status of Final
--- NOTE | 2023-07-28 07:53 | PC.NURSE ---
vss and up to date aside from being slightly hypotensive. pt still verbalizing LIRIANO but states sx have decreased since [employer]. pt pending admission at this time. pt waiting for echo to be completed. no sob/wob noted. resting comfortably in no apparent distress. respirations remain even/unlabored. plan of care ongoing. call knox placed within reach.
--- NOTE | 2023-07-28 08:02 | PC.NURSE ---
pt speaking w/ hospitalist at this time/aware of plan of care moving forward. coating machine feeder services utilized.
--- NOTE | 2023-07-28 08:25 | PM.IMHP ---
History of Present Illness Date of Service: 07/28/23 Chief Complaint: Headache, elevated blood pressure, and EKG changes. A 62-year-old woman with type 2 diabetes mellitus complicated by neuropathy, a history of osteomyelitis, and peripheral arterial disease (PAD) status post left femoral-popliteal bypass and subsequent angioplasty of the left profunda femoris and left popliteal artery, and coronary artery disease (CAD) with 60-70% stenosis in the right coronary artery (RCA), presented with a severe headache. Her medications include Norvasc 10 mg daily, Lisinopril 40 mg daily, Hydralazine 75 mg three times daily, and Coreg 25 mg twice daily and claims she's compliant. She regularly monitors her blood pressure, which was 234 mmHg systolic at home. This elevated blood pressure was confirmed by EMS and in the emergency department (ED). She received a total of 30 mg IV labetalol, resulting in a gradual reduction of her blood pressure to 120/54 mmHg. IV morphine was administered for the headache, which has since resolved. A head CT showed no acute pathology. ECG findings raised concerns for acute ischemic changes, but her Troponin I levels are normal. Review of Systems Review of Systems: Gen: no fever Resp: no sob, no cough CV: no chest, no LAKHANI, no leg edema GI: No n/v, no abd pain Neuro: No confusion, +headache, now gone Yes all other systems are reviewed and are negative [facility] Medical History Mild aortic valve stenosis LORE (obstructive sleep apnea) Chronic low back pain Lumbar spinal stenosis HTN (hypertension) Vitamin D deficiency HLD (hyperlipidemia) T2DM (type 2 diabetes mellitus) H. pylori infection CAD (coronary artery disease) Cyst (solitary) of breast Kidney calculi Arthritis Asthma HTN (hypertension) Diabetes Family History Mother Diabetes Liver cancer Surgical History History of right-sided carotid endarterectomy (~11/2022) S/P aortogram History of esophagogastroduodenoscopy (EGD) Hx of colonoscopy History of breast surgery History of cardiac cath Social History Household Members Other:: friend and adult son Housing: Apartment Are you a primary career and transition teacher to a significant other at home: No Do you presently have visiting nurse or other home services: No Alcohol intake: never Comment: pt sleeping Patient Tobacco Use Status: Current everyday Tobacco user Tobacco use type: Cigarette Cigarette Packs Per Day: 1 Cigarettes Per Day: 20.0 Years Smoked: 40 Smoked in Last 30 Days: No e-Cigarette/Vaping Use: Never Used Second Hand Smoke Exposure: Yes Use of substances other than those prescribed or required for medical reasons: No Advance Directives: No Advance Directives Information Provided: Yes Do you have a plan to hurt others: No Plan Patient : No service: No Current occupational status: unemployed and disabled Meds Allergies Allergy/AdvReac Type Severity Reaction Status Date / Time latex [LATEX] Allergy Severe RASH Verified 07/28/23 02:34 naproxen [From NAPROSYN] AdvReac Intermediate TACHYCARDIA Verified 07/28/23 02:34 Home Medications ?Medication ?Instructions ?Recorded ?Confirmed ?Last Taken ?Type metformin 1,000 mg tablet 1,000 mg PO BID 12/22/19 07/28/23 11/27/22 History aspirin 81 mg tablet,delayed 81 mg PO DAILY 01/02/20 07/28/23 11/27/22 History release (Adult Low Dose Aspirin) atorvastatin 80 mg tablet (Lipitor) 80 mg PO BEDTIME 01/02/20 07/28/23 11/27/22 History carvedilol 25 mg tablet (Coreg) 25 mg PO BID 01/02/20 07/28/23 11/28/22 History escitalopram oxalate 20 mg tablet 20 mg PO DAILY 01/02/20 07/28/23 11/28/22 History (Lexapro) gabapentin 800 mg tablet 800 mg PO TID 01/02/20 07/28/23 11/28/22 History lisinopril 40 mg tablet 40 mg PO DAILY 01/02/20 07/28/23 11/27/22 History mirtazapine 45 mg tablet 45 mg PO BEDTIME 01/02/20 07/28/23 11/27/22 History multivitamin 1 tab PO DAILY 01/02/20 07/28/23 11/27/22 History acetaminophen 650 mg 650 mg PO Q8H PRN Pain (Scale 01/16/21 07/28/23 Unknown History tablet,extended release (Arthritis Score 1-3) Pain Relief (acetaminophen) ER) amlodipine 10 mg tablet 10 mg PO BEDTIME 01/16/21 07/28/23 11/27/22 History fluticasone propionate 110 2 puff inhalation BID PRN 01/16/21 07/28/23 11/27/22 History mcg/actuation HFA aerosol inhaler Shortness Of Breath Or Wheezing (Flovent HFA) fluticasone propionate 50 2 spray intranasal DAILY PRN 01/16/21 07/28/23 11/27/22 History mcg/actuation nasal Allergy Symptoms spray,suspension blood sugar diagnostic (FreeStyle #10 ea 03/30/21 10/03/22 Unknown History Lite Strips) insulin degludec 100 unit/mL (3 10 unit subcut DAILY 10/03/22 07/28/23 11/27/22 History mL) subcutaneous pen (Tresiba FlexTouch U-100 insulin) amitriptyline 50 mg tablet 50 mg PO BEDTIME 11/07/22 07/28/23 Unknown History mometasone 100 mcg/actuation HFA 2 puff inhalation BID 06/12/23 07/28/23 Unknown History aerosol inhaler (Asmanex HFA) oxycodone 5 mg tablet 5 mg PO 5XD PRN Severe Pain (Scale 06/12/23 07/28/23 Unknown History Score 7-10) omeprazole 20 mg capsule,delayed 40 mg PO DAILY PRN Heartburn 07/19/23 07/28/23 Unknown History release baclofen 10 mg tablet 10 mg PO TID PRN muscle spasm 07/28/23 07/28/23 Unknown History hydralazine 25 mg tablet 25 mg PO TID 07/28/23 07/28/23 Unknown History hydroxyzine pamoate 25 mg capsule 25 mg PO Q6H PRN anxiety 07/28/23 07/28/23 Unknown History polyethylene glycol 3350 17 17 g PO DAILY PRN Constipation 07/28/23 07/28/23 Unknown History gram/dose oral powder (Miralax) sennosides 8.6 mg tablet (senna) 17.2 mg PO BEDTIME PRN constipation 07/28/23 07/28/23 Unknown History Physical Exam Vital Signs and Narrative: Vital Signs: Last Vital Signs Temp 96.7 F L 07/28/23 07:52 Pulse 78 07/28/23 07:52 Resp 15 07/28/23 07:52 BP 120/54 L 07/28/23 07:52 Pulse Ox 97 07/28/23 07:52 O2 Del Method Room Air 07/28/23 07:52 BMI result Body Mass Index 27.9 Constitutional: Alert, in no distress, Mental Status: Oriented to person, place and time. Eyes: Pupils are equal, round and reactive to light. Ear, Nose and Throat: Oropharynx clear, mucous membranes moist. Ears and nose without dfeformities. Trachea midline. Respiratory: Clear to auscultation. No wheezing, rales or rhonchi. Cardiovascular: S1 S2 regular. No murmurs, rubs or gallops. Gastrointestinal: Abdomen soft, non-tender, non-distended. Normal bowel sounds.? Neurologic: Cranial nerves II-XII grossly intact. No focal neurological deficits. Moves all extremities spontaneously.? Skin: No rashes or lesions.? Musculoskeletal: No cyanosis or clubbing. Psychiatric: Normal mood and affect? Results Labs 07/28/23 02:42 07/28/23 02:43 Labs: Laboratory Results - last 24 hr 07/28/23 07/28/23 07/28/23 02:42 02:43 04:46 MCV 88.4 MCH 30.2 MCHC 34.2 RDW 13.3 Plt Count 279 MPV 9.1 L Immature Gran % (Auto) 0.1 Neut % (Auto) 62.3 Lymph % (Auto) 28.3 Steele % (Auto) 5.7 Eos % (Auto) 3.0 Baso % (Auto) 0.6 Lymph # (Auto) 2.3 Steele # (Auto) 0.5 Eos # (Auto) 0.2 Baso # (Auto) 0.1 Abs Immat Gran (auto) 0.01 Absolute Neuts (auto) 5.1 Absolute Nucleated RBC 0.000 Nucleated RBC % (auto) 0.0 Hold Blue Top SEE NOTE Anion Gap 11 L Estim Creat Clear Calc 50.2 Estimated GFR 57 Random Glucose 267 H Calcium 9.3 Total Bilirubin 0.3 AST 13 ALT 8 Alkaline Phosphatase 83 Troponin I High Sens 5.0 9.3 D Total Protein 6.6 Albumin 3.6 Imaging Radiologist's Impressions: Impressions Head CT 07/28/23 03:27 IMPRESSION: No acute intracranial pathology. Assessment and Plan (1) Acute electrocardiogram changes: Status: Acute (2) Headache: Status: Acute (3) Hypertensive emergency: Status: Acute Plan 62/F with DM2, PAD, CAD, HTN, and asthma here with HTN emergency HTN emergency--BP now normal following IV Labetalol. Resume home home medication and monitor cautiously BP seems to have remain low for hours following iv labetalol and there is concern of BP potentially dropping significantly all resume will restart meds gradually and continue to monitor Abnormal ECG--normal troponin, cardiolology advises echo, cardiology eval Headache d/t above resolved. PAD- - continue statin, ASA, and Plavix DM2 with hyperglycemia - resume long acting, continue metfirmin, actis add ssliding neuropathy - gabapentin mood disorder - continue mirtazapine + escitalopram VTE prophylaxis: heparin Full code Need for inpatient: Hypertension emergency needing IV medication Quality Stroke Does the patient have a stroke diagnosis?: No VTE Prior VTE?: No VTE Risk Level:: Medical - moderate - high VTE Device Contraindication: Treatment Not Indicated VTE Drug Contraindication: N/A - Med Ordered
--- NOTE | 2023-07-28 10:15 | PHA.MEDREC ---
Addendum entered by Jann Dao 07/28/23 11:09: Ruth Ann not lantus Original Note: Pharmacy Consult ? Medication Reconciliation Pharmacy has completed the medication reconciliation. spoke with patient through an technical services consultant to confirm certain medications. Her daughter was able to confirm a few of them over the phone as well. They both confirmed she is now on spironolactone-hctz combination. Patient confirmed oxycodone and Lantus units, omeprazole is prn. [facility] confirmed that patient is on hydralazine 75mg TID. Used claim history and patient medication list to confirm the rest.
--- NOTE | 2023-07-28 10:33 | P.CONCA_ITS ---
History of Present Illness History of Present Illness Date of Service: 07/28/23 Chief complaint: HTN emergency Narrative: This is a cardiology consultation regarding hypertensive emergency type situation. Patient has a history of uncontrolled hypertension, diabetes, peripheral vascular disease as well as coronary disease. It appears that she was having headaches and her pressures were in the 200s and that led to ER visit. I discussed with the patient's daughter over the phone who spoke some Bengali. Also discussed with the patient directly using automotive parts interpreter. Daughter states that patient does miss medications intermittently. Couple of days ago, there was some appointment and hence did not take any medications. Subsequently, it seems that the blood pressure started going up and that led to the ER visit. Initially, pressures were well into the 200s but after medications given in the ER, the does improved significantly. Most recent recorded number is 120/54 mm Hg. Currently, she states that she feels okay. Review of Systems 2 Review of Systems: Yes all other systems are reviewed and are negative Constitutional: Constitutional: Reports as per HPI and Reports no additional constitutional complaints Eyes: Eyes: Reports as per HPI and Denies no additional eye complaints ENT: Denies system reviewed and no additional complaints, except as documented and Reports as per HPI Cardiovascular: Cardiovascular: Reports as per HPI, Reports no additional cardiovascular complaints, Denies acrocyanosis, Denies cool extremities, Denies chest pain, Denies leg edema, Denies lightheadedness, Denies palpitations and Denies dyspnea Respiratory: Respiratory: Reports as per HPI, Denies no additional respiratory complaints and Denies dyspnea Gastrointestinal: Gastrointestinal: Reports as per HPI and Denies no additional gastrointestinal complaints Genitourinary: Genitourinary: Reports as per HPI Musculoskeletal: Musculoskeletal: Reports no additional musculoskeletal complaints and Reports as per HPI Integumentary/Breasts: Skin/Breast: Reports system reviewed and no additional complaints, except as docu Neurologic: Reports system reviewed and no additional complaints, except as documented and Reports as per HPI Psychiatric: Psychiatric: Reports no additional psychiatric complaints and Reports as per HPI Endocrine: Endocrine: Reports no additional endocrine complaints, Reports as per HPI and Denies palpitations Hematologic/Lymphatic: Hematologic/Lymphatic: Reports no additional hematologic/lymphatic complaints and Reports as per HPI Allergic/Immunologic: Allergic/Immunologic: Reports no additional allergic/immunologic complaints and Reports as per HPI [facility] Past Medical History Medical History Mild aortic valve stenosis LORE (obstructive sleep apnea) Chronic low back pain Lumbar spinal stenosis HTN (hypertension) Vitamin D deficiency HLD (hyperlipidemia) T2DM (type 2 diabetes mellitus) H. pylori infection CAD (coronary artery disease) Cyst (solitary) of breast Kidney calculi Arthritis Asthma HTN (hypertension) Diabetes Family History Family History Mother Diabetes Liver cancer Surgical History Surgical History History of right-sided carotid endarterectomy (~11/2022) S/P aortogram History of esophagogastroduodenoscopy (EGD) Hx of colonoscopy History of breast surgery History of cardiac cath Social History Social History Household Members: Children and Friend(s) Household Members Other:: friend and adult son Housing: Apartment Are you a primary daycare worker to a significant other at home: No Do you presently have visiting nurse or other home services: No Alcohol intake: never Comment: pt sleeping Patient Tobacco Use Status: Current everyday Tobacco user Tobacco use type: Cigarette Cigarette Packs Per Day: 1 Cigarettes Per Day: 20.0 Years Smoked: 40 Smoked in Last 30 Days: No e-Cigarette/Vaping Use: Never Used Second Hand Smoke Exposure: Yes Use of substances other than those prescribed or required for medical reasons: No Advance Directives: No Advance Directives Information Provided: Yes Do you have a plan to hurt others: No Plan Patient : No service: No Current occupational status: unemployed and disabled Meds Allergies Allergy/AdvReac Type Severity Reaction Status Date / Time latex [LATEX] Allergy Severe RASH Verified 07/28/23 02:34 naproxen [From NAPROSYN] AdvReac Intermediate TACHYCARDIA Verified 07/28/23 02:34 Active Medications: Current Medications Acetaminophen (Acetaminophen 325 Mg Tablet) 650 mg PO Q6H PRN PRN Reason: Pain, Mild (Pain Scale 1-3) Glucose (Glucose Gel 15 Gm Gel..Gram.) 15 gm PO Q15M PRN; Protocol PRN Reason: per Hypoglycemia Standing Ord. Dextrose (D10) 250 mls @ 750 mls/hr IV Q15M PRN; Protocol PRN Reason: per Hypoglycemia Standing Ord. Insulin Human Lispro (Insulin Lispro 100 Unit/Ml 3 Ml Vial) [facility]; Protocol Magnesium Hydroxide (Milk Of Magnesia 30 Ml Oral.Susp) 30 ml PO DAILY PRN PRN Reason: Constipation Ondansetron HCl (Ondansetron Hcl 4 Mg/2 Ml Vial) 4 mg IVPUSH Q8H PRN PRN Reason: Nausea and Vomiting Sodium Chloride (0.9 % Sodium Chloride Flush 3 Ml Syringe) 3 ml IVFLUSH [facility] Home Medications ?Medication ?Instructions ?Recorded ?Confirmed ?Last Taken ?Type metformin 1,000 mg tablet 1,000 mg PO BID 12/22/19 07/28/23 11/27/22 History aspirin 81 mg tablet,delayed 81 mg PO DAILY 01/02/20 07/28/23 11/27/22 History release (Adult Low Dose Aspirin) atorvastatin 80 mg tablet (Lipitor) 80 mg PO BEDTIME 01/02/20 07/28/23 11/27/22 History carvedilol 25 mg tablet (Coreg) 25 mg PO BID 01/02/20 07/28/23 11/28/22 History escitalopram oxalate 20 mg tablet 20 mg PO DAILY 01/02/20 07/28/23 11/28/22 History (Lexapro) gabapentin 800 mg tablet 800 mg PO TID 01/02/20 07/28/23 11/28/22 History lisinopril 40 mg tablet 40 mg PO DAILY 01/02/20 07/28/23 11/27/22 History mirtazapine 45 mg tablet 45 mg PO BEDTIME 01/02/20 07/28/23 11/27/22 History multivitamin 1 tab PO DAILY 01/02/20 07/28/23 11/27/22 History acetaminophen 650 mg 650 mg PO Q8H PRN Pain (Scale 01/16/21 07/28/23 Unknown History tablet,extended release (Arthritis Score 1-3) Pain Relief (acetaminophen) ER) amlodipine 10 mg tablet 10 mg PO BEDTIME 01/16/21 07/28/23 11/27/22 History fluticasone propionate 110 2 puff inhalation BID PRN 01/16/21 07/28/23 11/27/22 History mcg/actuation HFA aerosol inhaler Shortness Of Breath Or Wheezing (Flovent HFA) fluticasone propionate 50 2 spray intranasal DAILY PRN 01/16/21 07/28/23 11/27/22 History mcg/actuation nasal Allergy Symptoms spray,suspension blood sugar diagnostic (FreeStyle #10 ea 03/30/21 10/03/22 Unknown History Lite Strips) insulin degludec 100 unit/mL (3 10 unit subcut DAILY 10/03/22 07/28/23 11/27/22 History mL) subcutaneous pen (Tresiba FlexTouch U-100 insulin) amitriptyline 50 mg tablet 50 mg PO BEDTIME 11/07/22 07/28/23 Unknown History mometasone 100 mcg/actuation HFA 2 puff inhalation BID 06/12/23 07/28/23 Unknown History aerosol inhaler (Asmanex HFA) oxycodone 5 mg tablet 5 mg PO 5XD PRN Severe Pain (Scale 06/12/23 07/28/23 Unknown History Score 7-10) omeprazole 20 mg capsule,delayed 40 mg PO DAILY PRN Heartburn 07/19/23 07/28/23 Unknown History release baclofen 10 mg tablet 10 mg PO TID PRN muscle spasm 07/28/23 07/28/23 Unknown History hydralazine 25 mg tablet 25 mg PO TID 07/28/23 07/28/23 Unknown History hydroxyzine pamoate 25 mg capsule 25 mg PO Q6H PRN anxiety 07/28/23 07/28/23 Unknown History polyethylene glycol 3350 17 17 g PO DAILY PRN Constipation 07/28/23 07/28/23 Unknown History gram/dose oral powder (Miralax) sennosides 8.6 mg tablet (senna) 17.2 mg PO BEDTIME PRN constipation 07/28/23 07/28/23 Unknown History Physical Exam 2 Vital Signs: Vital Signs: Last Vital Signs Temp 96.7 F L 07/28/23 07:52 Pulse 78 07/28/23 07:52 Resp 15 07/28/23 07:52 BP 120/54 L 07/28/23 07:52 Pulse Ox 97 07/28/23 07:52 O2 Del Method Room Air 07/28/23 07:52 BMI result Body Mass Index 27.9 Const: General: comfortable and no acute distress O rientation/consciousness: patient oriented x3 HEENT: Other: Unremarkable Head: Yes normal to inspection Neck: Neck: Yes normal visual inspection Chest: Chest palpation & inspection: normal inspection of the chest Resp: Auscultation: clear to auscultation bilaterally Cardio: Palpation: normal PMI Heart sounds: S1 normal heart sound present, S2 normal heart sound present, no gallops, no murmurs and no rubs GI: Palpation (GI): Soft to palpation Back/Spine/Pelvis: Other: unremarkable Skin: General skin exam: no rashes or lesions noted Neuro: General: patient oriented x3 Extrem: General: Yes normal to inspection Psych: Mental Status: mental status grossly normal Objective Labs and Meds 07/28/23 02:42 07/28/23 02:43 Lab results: Laboratory Results - last 24 hr 07/28/23 07/28/23 07/28/23 02:42 02:43 04:46 WBC 8.1 RBC 3.87 L Hgb 11.7 L Hct 34.2 L MCV 88.4 MCH 30.2 MCHC 34.2 RDW 13.3 Plt Count 279 MPV 9.1 L Immature Gran % (Auto) 0.1 Neut % (Auto) 62.3 Lymph % (Auto) 28.3 [place] % (Auto) 5.7 Eos % (Auto) 3.0 Baso % (Auto) 0.6 Lymph # (Auto) 2.3 [place] # (Auto) 0.5 Eos # (Auto) 0.2 Baso # (Auto) 0.1 Abs Immat Gran (auto) 0.01 Absolute Neuts (auto) 5.1 Absolute Nucleated RBC 0.000 Nucleated RBC % (auto) 0.0 Hold Blue Top SEE NOTE Sodium 139 Potassium 3.7 Chloride 103 Carbon Dioxide 29 Anion Gap 11 L BUN 20 H Creatinine 0.99 Estim Creat Clear Calc 50.2 Estimated GFR 57 Random Glucose 267 H Calcium 9.3 Total Bilirubin 0.3 AST 13 ALT 8 Alkaline Phosphatase 83 Troponin I High Sens 5.0 9.3 D Total Protein 6.6 Albumin 3.6 ECG Interpretation: EKG with underlying sinus rhythm at 95/Min; incomplete right bundle-branch block; left ventricular hypertrophy with strain pattern. In the previous EKG, the strain pattern is less obvious-06/2023. Imaging Radiologist's impression: Impressions Head CT 07/28/23 03:27 IMPRESSION: No acute intracranial pathology. Assessment and Plan (1) Hypertensive emergency: Status: Acute Plan Blood pressure findings reviewed. Upon arrival to the ER, 238/111 mm Hg. After that, it has been slowly getting better and the most recent level is 120/54 mm Hg. EKG shows LV strain pattern likely from uncontrolled blood pressures. Troponin levels are unremarkable. Per EMR, patient has received labetalol IV, Zofran, morphine. In this instance, high blood pressure could be related to skipping medications as mentioned by her daughter. Suggest that we resume the home regimen as listed including carvedilol, amlodipine, lisinopril, hydralazine, spironolactone, hydrochlorothiazide. Will follow up with you. Discussed with daughter over the phone. Procedures Date of Service Date of Service: 07/28/23
--- NOTE | 2023-07-28 12:00 | PC.NURSE ---
delay in medication administration d/t emergent situation w/ other patient.
[2023-07-28 12:15] LABS: Glucose, Whole Blood 212 mg/dL (60-115)
[2023-07-28] MEDS: Insulin Glargine,Hum.rec.anlog 100 UNIT/ML 10 ML VIAL 7 UNIT SUBCUT (12:17)
[2023-07-28] MEDS: Spironolactone 25 MG TABLET PO (12:17)
[2023-07-28] MEDS: Escitalopram Oxalate 20 MG TABLET PO (12:17)
[2023-07-28] MEDS: Clopidogrel Bisulfate 75 MG TABLET PO (12:17)
[2023-07-28] MEDS: Aspirin Enteric Coated 81 MG TABLET.DR PO (12:17)
[2023-07-28] MEDS: Multivitamin TABLET 1 TAB PO (12:18)
[2023-07-28] MEDS: hydroCHLOROthiazide 25 MG TABLET PO (12:18)
--- NOTE | 2023-07-28 12:21 | PC.NURSE ---
medication administered per provider order. admelog/metformin held per provider order. per dr. herminia fernández to administer at this time. pt continues to rest comfortably w/ the lights dimmed in no apparent distress. pt waiting for bed assignment at this time. respirations remain even/unlabored. plan of care ongoing. call knox placed within reach.
--- NOTE | 2023-07-28 14:37 | PC.NURSE ---
pt's BP slowly starting to increase at this time. dr. hope notified/aware. pt still denies LIRIANO post prior medication administration. resting comfortably in no apparent distress. call knox placed within reach.
[2023-07-28] MEDS: Gabapentin 400 MG CAPSULE 800 MG PO ×2 (16:50→20:07)
[2023-07-28] MEDS: hydrALAZINE HCl 25 MG TABLET PO ×2 (16:51→20:08)
[2023-07-28] MEDS: 0.9 % Sodium Chloride Flush 3 ML SYRINGE IVFLUSH ×2 (16:53→23:36)
[2023-07-28 17:43] LABS: Glucose, Whole Blood 231 mg/dL (60-115)
[2023-07-28] MEDS: lisinopriL 10 MG TABLET 30 MG PO (18:49)
[2023-07-28] MEDS: Insulin Lispro 100 UNIT/ML 3 ML VIAL SUBCUT ×2 (18:50→20:35)
[2023-07-28] MEDS: Mirtazapine 15 MG TABLET 45 MG PO (20:06)
[2023-07-28] MEDS: Acetaminophen 325 MG TABLET 650 MG PO (20:06)
[2023-07-28] MEDS: Amitriptyline HCl 50 MG TABLET PO (20:07)
[2023-07-28] MEDS: Atorvastatin Calcium 80 MG TABLET PO (20:07)
[2023-07-28] MEDS: Ferrous Sulfate 324 MG TABLET.DR PO (20:07)
[2023-07-28] MEDS: amLODIPine Besylate 10 MG TABLET PO (20:07)
[2023-07-28] MEDS: carvediloL 25 MG TABLET PO (20:13)
[2023-07-28 20:30] LABS: Glucose, Whole Blood 171 mg/dL (60-115)
[2023-07-29 04:00] VITALS: BP 115/57; PULSE 65; RESP 17; TEMP 37.1; O2SAT 94
[2023-07-29 07:49] LABS: Glucose, Whole Blood 115 mg/dL (60-115)
[2023-07-29 08:00] VITALS: BP 177/74; PULSE 62; RESP 18; TEMP 36.6; O2SAT 96
[2023-07-29 08:19] LABS: Anion Gap 12 (12-20); Blood Urea Nitrogen 24 mg/dL (9-16); Calcium 8.5 mg/dL (8.4-10.2); Carbon Dioxide 28 mmol/L (22-29); Chloride 105 mmol/L (96-108); Creatinine Clr Calc Pharmacy 54.6; Estimated Glomerular Filt Rate > 60; Glucose Random 112 mg/dL (60-115); Potassium 3.8 mmol/L (3.3-5.1); Sodium 141 mmol/L (135-145)
[2023-07-29 09:04] VITALS: BP 177/74
[2023-07-29] MEDS: Clopidogrel Bisulfate 75 MG TABLET PO (09:04)
[2023-07-29] MEDS: hydrALAZINE HCl 25 MG TABLET PO (09:04)
[2023-07-29] MEDS: hydroCHLOROthiazide 25 MG TABLET PO (09:04)
[2023-07-29] MEDS: metFORMIN HCl 1,000 MG TABLET 1000 MG PO (09:04)
[2023-07-29] MEDS: Aspirin Enteric Coated 81 MG TABLET.DR PO (09:04)
[2023-07-29] MEDS: Multivitamin TABLET 1 TAB PO (09:04)
[2023-07-29] MEDS: Spironolactone 25 MG TABLET PO (09:04)
[2023-07-29] MEDS: carvediloL 25 MG TABLET PO (09:04)
[2023-07-29] MEDS: Gabapentin 400 MG CAPSULE 800 MG PO (09:04)
[2023-07-29 09:05] VITALS: BP 177/74
[2023-07-29] MEDS: Insulin Glargine,Hum.rec.anlog 100 UNIT/ML 10 ML VIAL 7 UNIT SUBCUT (09:05)
[2023-07-29] MEDS: 0.9 % Sodium Chloride Flush 3 ML SYRINGE IVFLUSH (09:05)
[2023-07-29] MEDS: Ferrous Sulfate 324 MG TABLET.DR PO (09:05)
[2023-07-29] MEDS: Heparin Sodium,Porcine 5,000 UNIT/ML VIAL 5000 UNIT SUBCUT (09:05)
[2023-07-29] MEDS: lisinopriL 40 MG TABLET PO (09:05)
[2023-07-29] MEDS: Escitalopram Oxalate 20 MG TABLET PO (09:05)
[2023-07-29 11:13] LABS: Glucose, Whole Blood 112 mg/dL (60-115)
[2023-07-29 11:35] VITALS: BP 138/64; PULSE 58; RESP 18; TEMP 36.6; O2SAT 96
--- NOTE | 2023-07-29 11:46 | P.DS_ITS ---
DS: Providers Provider Date of Service: 07/29/23 Date of admission: 07/28/23 08:45 Primary care physician: Radha Jamison DO Consults: 07/28/23 08:59 Consult to Cardiology Routine Consulting Provider: [facility] Reason for consultation: abnormal ECG DS: Diagnosis Discharge Diagnosis (1) Acute electrocardiogram changes: Status: Acute (2) Headache: Status: Acute (3) Hypertensive emergency: Status: Acute DS: Summary Hospital Course Hospital Course: admission hpi Chief Complaint: Headache, elevated blood pressure, and EKG changes. A 62-year-old woman with type 2 diabetes mellitus complicated by neuropathy, a history of osteomyelitis, and peripheral arterial disease (PAD) status post left femoral-popliteal bypass and subsequent angioplasty of the left profunda femoris and left popliteal artery, and coronary artery disease (CAD) with 60-70% stenosis in the right coronary artery (RCA), presented with a severe headache. Her medications include Norvasc 10 mg daily, Lisinopril 40 mg daily, Hydralazine 75 mg three times daily, and Coreg 25 mg twice daily and claims she's compliant. She regularly monitors her blood pressure, which was 234 mmHg systolic at home. This elevated blood pressure was confirmed by EMS and in the emergency department (ED). She received a total of 30 mg IV labetalol, resulting in a gradual reduction of her blood pressure to 120/54 mmHg. IV morphine was administered for the headache, which has since resolved. A head CT showed no acute pathology. ECG findings raised concerns for acute ischemic changes, but her Troponin I levels are normal. Hospital course: The patient presented with a headache and a systolic blood pressure (SBP) ex ceeding 200. ECG showed no significant changes compared to previous results, and troponin levels were normal. Initially, the patient denied non-compliance with her medication, but her daughter later confirmed that she misses doses. Intravenous labetalol was administered, resulting in a significant reduction in blood pressure, and she was restarted on her home medication regimen. The patient did not experience chest pain or shortness of breath, and a furniture installer recommended that she adhere to her blood pressure medication. Currently, her blood pressure is well controlled (138/64) without additional medication. She was advised to continue her prescribed medication regimen and follow up with her primary care provider. Additionally, she admitted to irregular insulin use and was counseled to take it as prescribed, monitor her blood sugar regularly, and follow a diabetic diet. Time Attestation Discharge Coordination Time (in mins): 40 Quality: Safe Use of Opioids Does Pt have an Active Cancer Diagnosis on the Problem List?: No Quality: Stroke Does the patient have a stroke diagnosis?: No Physical Exam Vital Signs: Vital Signs: Last Vital Signs Temp 97.8 F 07/29/23 11:35 Pulse 58 07/29/23 11:35 Resp 18 07/29/23 11:35 BP 138/64 07/29/23 11:35 Pulse Ox 96 07/29/23 11:35 O2 Del Method Room Air 07/29/23 11:35 BMI result Body Mass Index 27.9 DS: Data Data Completed and Pending Labs on day of discharge: Laboratory Results - last 24 hr 07/28/23 07/28/23 07/28/23 12:09 17:39 20:13 Hold Purple Top Sodium Potassium Chloride Carbon Dioxide Anion Gap BUN Creatinine Estim Creat Clear Calc Estimated GFR POC Glucose 212 H 231 H 171 H Random Glucose Calcium 07/29/23 07/29/23 07/29/23 06:51 07:44 10:50 Hold Purple Top SEE NOTE Sodium 141 Potassium 3.8 Chloride 105 Carbon Dioxide 28 Anion Gap 12 BUN 24 H Creatinine 0.91 Estim Creat Clear Calc 54.6 Estimated GFR > 60 POC Glucose 115 112 Random Glucose 112 Calcium 8.5 D Discharge Plan Discharge Anticipated Discharge Date/Time: 07/29/23 11:38 Patient Disposition: Home, Self-Care Discharge Diagnosis: Accelerated Hypertension Referrals: Radha Jamison DO [Primary Care Provider] - 1 Week Discharge Medications: Continued pioglitazone 15 mg tablet 15 mg PO DAILY 30 Days Qty: 30 11RF (DME) lancets [TRUEplus Lancets] 33 gauge misc See Rx Instructions .Route Qty: 100 11RF Rx Instructions: 4x daily metformin 1,000 mg Tablet 1,000 mg PO BID ferrous sulfate 325 mg (65 mg iron) tablet 325 mg PO BID Qty: 60 0RF clopidogrel [Plavix] 75 mg tablet 75 mg PO DAILY Qty: 30 5RF docusate sodium [Colace] 100 mg capsule 100 mg PO BID PRN (Reason: Constipation) Qty: 14 0RF amlodipine 10 mg Tablet 10 mg PO BEDTIME fluticasone propionate 50 mcg/actuation [place],Suspension 2 spray INTRANASAL DAILY PRN (Reason: Allergy Symptoms) acetaminophen [Arthritis Pain Relief (acetam)] 650 mg Tablet Extended Release 650 mg PO Q8H PRN (Reason: Pain (Scale Score 1-3)) fluticasone propionate [Flovent HFA] 110 mcg/actuation Hfa Aerosol Inhaler 2 puff INHALATION BID PRN (Reason: Shortness Of Breath Or Wheezing) amitriptyline 50 mg tablet 50 mg PO BEDTIME hydralazine 50 mg tablet 50 mg PO TID Qty: 3 0RF sennosides [senna] 8.6 mg tablet 17.2 mg PO BEDTIME PRN (Reason: constipation) baclofen 10 mg tablet 10 mg PO TID PRN (Reason: muscle spasm) hydroxyzine pamoate 25 mg capsule 25 mg PO Q6H PRN (Reason: anxiety) hydralazine 25 mg tablet 25 mg PO TID polyethylene glycol 3350 [Miralax] 17 gram/dose powder 17 g PO DAILY PRN (Reason: Constipation) carvedilol [Coreg] 25 mg tablet 25 mg PO BID Rx Instructions: must administer with a meal/food multivitamin Tablet 1 tab PO DAILY lisinopril 40 mg tablet 40 mg PO DAILY gabapentin 800 mg tablet 800 mg PO TID aspirin [Adult Low Dose Aspirin] 81 mg tablet,delayed release (DR/EC) 81 mg PO DAILY escitalopram oxalate [Lexapro] 20 mg tablet 20 mg PO DAILY mirtazapine 45 mg tablet 45 mg PO BEDTIME atorvastatin [Lipitor] 80 mg tablet 80 mg PO BEDTIME Tresiba FlexTouch U-100 100 unit/mL (3 mL) insulin pen 10 unit subcut DAILY (DME) FreeStyle Lite Strips Strip See Rx Instructions Not Applicable QID Qty: 10 Rx Instructions: As directed Asmanex HFA 100 mcg/actuation HFA aerosol inhaler 2 puff inhalation BID oxycodone 5 mg tablet 5 mg PO 5XD PRN (Reason: Severe Pain (Scale Score 7-10)) omeprazole 20 mg capsule,delayed release(DR/EC) 40 mg PO DAILY PRN (Reason: Heartburn) spironolacton-hydrochlorothiaz 25-25 mg tablet 1 tab PO DAILY Qty: 90 0RF Discharge Orders: Discharge Order (Routine); Ordered 07/29/23 Ordered By: Winston Mlapah Diet: Advance to usual diet Activity on Discharge: As tolerated Stand Alone Forms: Patient Portal Discharge page Print Language: Bengali Care Plan Goals: Control of blood pressure and prevent complications related to high blood pressure Health Concerns: High blood pressure Plan of Treatment: Take all your blood pressure medication medicaion as prescribed; do not skip medication take your diabetes medications, including insulin as directed and follow your sugar levels and eat low sugar diet follow up with your primary care doctor and your kidney doctor jj a week to 2 weeks, call for appointment Assessment: see above
== END 2023-07-29 13:30 | disposition home or self-care (01) | DRG 199 ==
LOC: HO.ED 05:35 → HO.EDOVER 08:49 → HO.IMC 16:24
PROVIDERS: Admitting Provider Internal Medicine; Emergency Provider Emergency Medicine; PCP Family Medicine; Visit Provider Internal Medicine
DX: I16.1 Hypertensive emergency (principal); E11.40 Type 2 diabetes mellitus with diabetic neuropathy, unspecified; E11.51 Type 2 diabetes mellitus with diabetic peripheral angiopathy without gangrene; G47.33 Obstructive sleep apnea (adult) (pediatric); I10 Essential (primary) hypertension; E11.65 Type 2 diabetes mellitus with hyperglycemia; F39 Unspecified mood [affective] disorder; I25.10 Atherosclerotic heart disease of native coronary artery without angina pectoris; Z87.891 Personal history of nicotine dependence; Z91.148 Patient's other noncompliance with medication regimen for other reason; Z91.040 Latex allergy status; Z79.82 Long term (current) use of aspirin; Z79.02 Long term (current) use of antithrombotics/antiplatelets; Z79.84 Long term (current) use of oral hypoglycemic drugs; Z79.899 Other long term (current) drug therapy
CPT/HCPCS: 36415; 70450; 80048; 80053; 82947; 84484; 85025; 93005; 93306; 93356; 99222; 99285; J1644; J1920; J2270; J2405; Q9957

== ENCOUNTER → 2023-07-28 08:45 | Outpatient (BNV) | payer MEDICAID, SELFPAY | PROVIDERS: Admitting Provider Internal Medicine; Emergency Provider Emergency Medicine; PCP Family Medicine; Visit Provider Internal Medicine | DX: I16.1 Hypertensive emergency (principal); I45.10 Unspecified right bundle-branch block; R94.31 Abnormal electrocardiogram [ECG] [EKG]; I10 Essential (primary) hypertension; I35.0 Nonrheumatic aortic (valve) stenosis; I36.1 Nonrheumatic tricuspid (valve) insufficiency; I35.8 Other nonrheumatic aortic valve disorders | CPT/HCPCS: 93010; 93306; 93356; 99223 ==

== ENCOUNTER → 2023-07-28 08:45 | Outpatient (BNV) | payer MEDICAID, SELFPAY | PROVIDERS: Admitting Provider Internal Medicine; Emergency Provider Emergency Medicine; PCP Family Medicine; Visit Provider Internal Medicine | DX: R94.31 Abnormal electrocardiogram [ECG] [EKG] (principal); R51.9 Headache, unspecified; I16.1 Hypertensive emergency | CPT/HCPCS: 99223; 99239 ==

== ENCOUNTER 2023-08-10 00:19 | Emergency (ER) | payer MEDICAID, SELFPAY ==
--- NOTE | ~2023-08-10 | CT_ITS ---
EXAMINATION: CT HEAD WITHOUT CONTRAST CLINICAL INFORMATION: Severe headache. COMPARISON: Head CT dated 07/28/2023. TECHNIQUE: Contiguous axial imaging was performed from the skullbase to vertex without intravenous administration of contrast. This CT examination was performed using dose optimization techniques as appropriate, variously including the following: *Automated exposure control *Adjustment of mA and/or kV according to patient size (this includes techniques or standardized protocols for targeted exams where dose is matched to indication/reason for exam; i.e. extremities or head) *Use of iterative reconstruction technique DLP: 579 mGy-cm. FINDINGS: There is no evidence of acute intracranial hemorrhage or territorial infarction. No abnormal mass effect or midline shift is seen. Kelly to white matter differentiation is well preserved. No extra-axial fluid collections are identified. The ventricles are normal in size. There is no abnormal attenuation within the brain parenchyma. The osseous structures and soft tissues are normal. The right mastoid air cells and visualized portions of the paranasal sinuses are well aerated. Very mild amount of fluid in the dependent left mastoid air cells. CT/CT head/brain wo IV con IMPRESSION: No acute intracranial pathology.
[2023-08-10 00:24] VITALS: BP 224/107; PULSE 99; O2SAT 99
--- NOTE | 2023-08-10 01:44 | ECG_ITS ---
Test Reason : HYPERTENSION Blood Pressure : / mmHG Vent. Rate : 075 BPM Atrial Rate : 075 BPM P-R Int : 126 ms QRS Dur : 094 ms QT Int : 412 ms P-R-T Axes : 032 -10 151 degrees QTc Int : 460 ms Normal sinus rhythm Left ventricular hypertrophy with repolarization abnormality ( R in aVL , [place] product ) Abnormal ECG When compared with ECG of 28-JUL-2023 04:22, ST now depressed in Lateral leads Referred By: Nguyen Carrera Electronically Signed By:CAROLYNE ECHOLS MD
[2023-08-10 06:14] LABS: MANUAL DIFF FLAG NO
[2023-08-10 06:15] LABS: Alanine Aminotransferase 7 U/L (0-31); Albumin Level 3.3 g/dL (3.5-5.0); Alkaline Phosphatase 73 U/L (39-117); Anion Gap 14 (12-20); Aspartate Amino Transferase 10 U/L (5-31); Bilirubin Direct 0.1 mg/dL (0.0-0.5); Bilirubin Total 0.3 mg/dL (0.0-1.0); Blood Urea Nitrogen 16 mg/dL (9-16); Carbon Dioxide 24 mmol/L (22-29); Chloride 107 mmol/L (96-108); Estimated Glomerular Filt Rate 53; Glucose Random 228 mg/dL (60-115); Sodium 140 mmol/L (135-145); Total Protein 5.8 g/dL (6.5-8.0)
[2023-08-10 06:16] LABS: Troponin-I High Sensitivity 7.9 ng/L (<3.5-17.0)
[2023-08-10 06:17] LABS: B Type Natriuretic Peptide 141 pg/mL (<100); Basophils Percent Auto 0.6 % (0-2); Eosinophils Absolute Auto 0.2 X10*3/uL (0.0-0.4); Eosinophils Percent Auto 2.4 % (0-4); Hematocrit 30.3 % (37.0-47.0); Hemoglobin 10.3 g/dl (12.0-16.0); Imm Gran Abs Auto 0.04 X10*3/uL (0.00-0.03); Imm Gran Pct Auto 0.6 % (0.0-0.4); Lymphocytes Absolute Auto 1.2 X10*3/uL (1.2-4.9); Lymphocytes Percent Auto 18.9 % (20-40); Mean Corpuscular Hemoglobin 30.4 pg (27.0-33.0); Mean Corpuscular Volume 89.4 fL (80.0-98.0); Mean Platelet Volume 8.9 fL (9.4-12.3); Monocytes Absolute Auto 0.4 X10*3/uL (0.1-1.2); Monocytes Percent Auto 5.3 % (2-11); Neutrophils Absolute Auto 4.7 x10*3/uL (2.0-8.3); Neutrophils Percent Auto 72.2 % (45-73); Platelet Count 265 X10*3/uL (160-400); Red Blood Count 3.39 X10*6/uL (4.20-5.50); Red Cell Distribution Width 13.3 % (11.0-16.0); White Blood Count 6.6 X10*3/uL (4.8-10.8)
== END 2023-08-10 06:10 | disposition home or self-care (01) ==
PROVIDERS: Emergency Provider Emergency Medicine; PCP Family Medicine
DX: R51.9 Headache, unspecified (principal); I10 Essential (primary) hypertension; R06.02 Shortness of breath; D64.9 Anemia, unspecified; E11.9 Type 2 diabetes mellitus without complications; E78.5 Hyperlipidemia, unspecified; F17.210 Nicotine dependence, cigarettes, uncomplicated
CPT/HCPCS: 36415; 70450; 80048; 80076; 83880; 84484; 85025; 93005; 99284

== ENCOUNTER → 2023-08-10 01:44 | Outpatient (BNV) | payer MEDICAID, SELFPAY | PROVIDERS: Emergency Provider Emergency Medicine; PCP Family Medicine; Visit Provider Internal Medicine Cardiovascular Disease | DX: I10 Essential (primary) hypertension (principal); R94.31 Abnormal electrocardiogram [ECG] [EKG] | CPT/HCPCS: 93010 ==

== ENCOUNTER 2023-08-13 23:53 | Emergency (ER) | payer MEDICAID, SELFPAY ==
--- NOTE | ~2023-08-13 | CT_ITS ---
EXAMINATION: CT HEAD WITHOUT CONTRAST CLINICAL INFORMATION: severe htn, LIRIANO COMPARISON: CT head August 10, 2023 TECHNIQUE: Contiguous axial imaging was performed from the skull base to vertex without intravenous administration of contrast. Coronal and sagittal reformatted images are performed at the CT scanner. [This CT examination was performed using dose optimization techniques as appropriate, variously including the following: *Automated exposure control *Adjustment of mA and/or kV according to patient size (this includes techniques or standardized protocols for targeted exams where dose is matched to indication/reason for exam; i.e. extremities or head) *Use of iterative reconstruction technique] DLP: 559 mGy-cm. FINDINGS: There is no evidence of acute intracranial hemorrhage or territorial infarction. No abnormal mass-effect or midline shift is seen. [place] to white matter differentiation is well preserved. No extra-axial fluid collections are identified. The ventricles are normal in size. There is no abnormal attenuation within the brain parenchyma. There is no osseous abnormality. The mastoid air cells and visualized portions of the paranasal sinuses are well-aerated. CT/CT head/brain wo IV con IMPRESSION: No acute intracranial pathology.
[2023-08-14] VITALS (10 sets, daily range): BP systolic 159–215; BP diastolic 69–80; PULSE 73–97; RESP 18–20; TEMP 36.1–37; O2SAT 96–97; BMI 26.8
--- NOTE | 2023-08-14 00:07 | ECG_ITS ---
Test Reason : HTN Blood Pressure : / mmHG Vent. Rate : 077 BPM Atrial Rate : 077 BPM P-R Int : 142 ms QRS Dur : 090 ms QT Int : 398 ms P-R-T Axes : 036 -03 169 degrees QTc Int : 450 ms Normal sinus rhythm Left ventricular hypertrophy with repolarization abnormality ( R in aVL , [place] product ) Abnormal ECG When compared with ECG of 10-AUG-2023 01:44, No significant change was found Referred By: Nguyen Carrera Electronically Signed By:JM DU
[2023-08-14 00:22] LABS: MANUAL DIFF FLAG NO
[2023-08-14 00:23] LABS: Basophils Percent Auto 0.4 % (0-2); Eosinophils Absolute Auto 0.2 X10*3/uL (0.0-0.4); Eosinophils Percent Auto 2.5 % (0-4); Hematocrit 34.1 % (37.0-47.0); Hemoglobin 11.4 g/dl (12.0-16.0); Imm Gran Abs Auto 0.02 X10*3/uL (0.00-0.03); Imm Gran Pct Auto 0.3 % (0.0-0.4); Lymphocytes Percent Auto 28.9 % (20-40); Mean Corpuscular HGB Conc 33.4 g/dl (31.0-35.0); Mean Corpuscular Volume 89.7 fL (80.0-98.0); Mean Platelet Volume 8.9 fL (9.4-12.3); Monocytes Absolute Auto 0.5 X10*3/uL (0.1-1.2); Monocytes Percent Auto 6.8 % (2-11); Neutrophils Absolute Auto 4.2 x10*3/uL (2.0-8.3); Neutrophils Percent Auto 61.1 % (45-73); Platelet Count 281 X10*3/uL (160-400); Red Cell Distribution Width 13.3 % (11.0-16.0); White Blood Count 6.9 X10*3/uL (4.8-10.8)
[2023-08-14] MEDS: Labetalol HCL 100 MG/20 ML VIAL 20 MG IVPUSH (00:26)
[2023-08-14] MEDS: Morphine Sulfate 4 MG/ML CARTRIDGE IVPUSH ×2 (00:26→01:26)
[2023-08-14 00:35] LABS: Anion Gap 14 (12-20); Blood Urea Nitrogen 19 mg/dL (9-16); Carbon Dioxide 26 mmol/L (22-29); Chloride 106 mmol/L (96-108); Creatinine Clr Calc Pharmacy 44.9; Estimated Glomerular Filt Rate 49; Glucose Random 218 mg/dL (60-115); Potassium 3.9 mmol/L (3.3-5.1); Sodium 142 mmol/L (135-145)
[2023-08-14 00:43] LABS: B Type Natriuretic Peptide 160 pg/mL (<100); Troponin-I High Sensitivity 19.7 ng/L (<3.5-17.0)
--- NOTE | 2023-08-14 01:06 | ED_ITS ---
HPI - Headache General Chief Complaint: Headache Stated Complaint: HTN HEADACHE Time Seen by Provider: 08/13/23 23:59 Source: patient and EMS Mode of arrival: EMS Limitations: no limitations History of Present Illness ED Provider: Dr. Nguyen Carrera HPI Narrative: Patient comes to the emergency room complaining of a headache and high blood pressure. Patient states that at home she checked her blood pressure was above 220. Patient states she has complaining with the medications, at home she takes spironolactone 25 mg, hydrochlorothiazide 25 mg, hydralazine 25 mg t.i.d., amlodipine 10 mg daily, lisinopril 40 mg, carvedilol 25 mg b.i.d. Patient denies chest pain or shortness of breath denies syncopal episodes or lower extremity edema Related Data Home Medications ?Medication ?Instructions ?Recorded ?Confirmed metformin 1,000 mg tablet 1,000 mg PO BID 12/22/19 07/28/23 aspirin 81 mg tablet,delayed 81 mg PO DAILY 01/02/20 07/28/23 release (Adult Low Dose Aspirin) atorvastatin 80 mg tablet (Lipitor) 80 mg PO BEDTIME 01/02/20 07/28/23 carvedilol 25 mg tablet (Coreg) 25 mg PO BID 01/02/20 07/28/23 escitalopram oxalate 20 mg tablet 20 mg PO DAILY 01/02/20 07/28/23 (Lexapro) gabapentin 800 mg tablet 800 mg PO TID 01/02/20 07/28/23 lisinopril 40 mg tablet 40 mg PO DAILY 01/02/20 07/28/23 mirtazapine 45 mg tablet 45 mg PO BEDTIME 01/02/20 07/28/23 multivitamin 1 tab PO DAILY 01/02/20 07/28/23 acetaminophen 650 mg 650 mg PO Q8H PRN Pain (Scale 01/16/21 07/28/23 tablet,extended release (Arthritis Score 1-3) Pain Relief (acetaminophen) ER) amlodipine 10 mg tablet 10 mg PO BEDTIME 01/16/21 07/28/23 fluticasone propionate 110 2 puff inhalation BID PRN 01/16/21 07/28/23 mcg/actuation HFA aerosol inhaler Shortness Of Breath Or Wheezing (Flovent HFA) fluticasone propionate 50 2 spray intranasal DAILY PRN 01/16/21 07/28/23 mcg/actuation nasal Allergy Symptoms spray,suspension blood sugar diagnostic (FreeStyle #10 ea 03/30/21 10/03/22 Lite Strips) insulin degludec 100 unit/mL (3 10 unit subcut DAILY 10/03/22 07/28/23 mL) subcutaneous pen (Tresiba FlexTouch U-100 insulin) amitriptyline 50 mg tablet 50 mg PO BEDTIME 11/07/22 07/28/23 mometasone 100 mcg/actuation HFA 2 puff inhalation BID 06/12/23 07/28/23 aerosol inhaler (Asmanex HFA) oxycodone 5 mg tablet 5 mg PO 5XD PRN Severe Pain (Scale 06/12/23 07/28/23 Score 7-10) omeprazole 20 mg capsule,delayed 40 mg PO DAILY PRN Heartburn 07/19/23 07/28/23 release baclofen 10 mg tablet 10 mg PO TID PRN muscle spasm 07/28/23 07/28/23 hydralazine 25 mg tablet 25 mg PO TID 07/28/23 07/28/23 hydroxyzine pamoate 25 mg capsule 25 mg PO Q6H PRN anxiety 07/28/23 07/28/23 polyethylene glycol 3350 17 17 g PO DAILY PRN Constipation 07/28/23 07/28/23 gram/dose oral powder (Miralax) sennosides 8.6 mg tablet (senna) 17.2 mg PO BEDTIME PRN constipation 07/28/23 07/28/23 Previous Rx's ?Medication ?Instructions ?Recorded ferrous sulfate 325 mg (65 mg 325 mg PO BID #60 tabs 05/24/20 iron) tablet clopidogrel 75 mg tablet (Plavix) 75 mg PO DAILY #30 tabs 12/02/20 pioglitazone 15 mg tablet 15 mg PO DAILY 30 days #30 tabs 12/02/20 lancets 33 gauge (TRUEplus Lancets) #100 ea 07/26/21 hydralazine 50 mg tablet 50 mg PO TID #3 tabs 09/21/21 docusate sodium 100 mg capsule 100 mg PO BID PRN Constipation #14 04/17/22 (Colace) caps spironolactone 25 1 tab PO DAILY #90 tabs 07/19/23 mg-hydrochlorothiazide 25 mg tablet Allergies Allergy/AdvReac Type Severity Reaction Status Date / Time latex [LATEX] Allergy Severe RASH Verified 08/14/23 00:08 naproxen [From NAPROSYN] AdvReac Intermediate TACHYCARDIA Verified 08/14/23 00:08 Review of Systems 2 Review of Systems: Constitutional : No Weight loss, No Fever, No Chills, No Night Sweats, No Fatigue, No Malaise ENT/Mouth : No Hearing loss, No Ear Pain, No Nasal Congestion, No Sinus Pain, No Hoarseness, No sore throat, No Rhinorrhea, No Swallowing Difficulty Eyes: No Eye Pain, No Swelling, No Redness, No Foreign Body, No Discharge, No Vision Changes Cardiovascular : No Chest Pain, No SOB, No Dyspnea on Exertion, No Orthopnea, No Edema, No Palpitations Respiratory : No Cough, No Sputum, No Wheezing, No Smoke Exposure, No Dyspnea Gastrointestinal : No Nausea, No Vomiting, No Diarrhea, No Constipation, No abdominal Pain, No Hematochezia, No Melena Genitourinary : no irregular bleeding, No Dysuria, No Urinary Frequency, No Hematuria, No Urinary Incontinence, No Urgency, No Flank Pain, No Urinary Flow Changes, No Hesitancy Musculoskeletal : No joint pain, No Myalgias, No Joint Swelling Skin : No Skin Lesions, No rash Neuro : No Weakness, No Numbness, No Paresthesias, No Loss of Consciousness, No Dizziness, complaining of Headache Psych : No Anxiety/Panic, No Depression, No SI/HI/AH/VH, No Social Issues, Heme/Lymph: No Bruising, No Bleeding,No Lymphadenopathy Endocrine : No Polyuria, No Polydipsia, No Temperature Intolerance [facility] Past Medical History Medical History Mild aortic valve stenosis LORE (obstructive sleep apnea) Chronic low back pain Lumbar spinal stenosis HTN (hypertension) Vitamin D deficiency HLD (hyperlipidemia) T2DM (type 2 diabetes mellitus) H. pylori infection CAD (coronary artery disease) Cyst (solitary) of breast Kidney calculi Arthritis Asthma HTN (hypertension) Diabetes Surgical History History of right-sided carotid endarterectomy (~11/2022) S/P aortogram History of esophagogastroduodenoscopy (EGD) Hx of colonoscopy History of breast surgery History of cardiac cath Family History Family History Mother Diabetes Liver cancer Social History Social History Household Members: Family and Friend(s) Household Members Other:: friend and adult son Housing: Apartment Are you a primary home care manager rn to a significant other at home: No Do you presently have visiting nurse or other home services: No Alcohol intake: never Comment: pt sleeping Patient Tobacco Use Status: Former Tobacco user Tobacco use type: Cigarette Cigarette Packs Per Day: 1 Cigarettes Per Day: 3 Years Smoked: 40 Smoked in Last 30 Days: Yes e-Cigarette/Vaping Use: Never Used Second Hand Smoke Exposure: No Advance Directives: No Advance Directives Information Provided: No Patient : No service: No Current occupational status: unemployed and disabled Physical Exam 2 Vital Signs: Vital Signs: Last Vital Signs Temp 98.6 F 08/14/23 00:02 Pulse 97 08/14/23 00:26 Resp 18 08/14/23 00:05 BP 211/75 H 08/14/23 00:26 Pulse Ox 96 08/14/23 00:05 O2 Del Method Room Air 08/14/23 00:05 BMI result Body Mass Index 26.8 Const: Other: Appearance: Alert. Oriented X3. Patient looks uncomfortable from the headache Eyes: Pupils equal, round and reactive to light. Patient has mild photophobia, no visual changes ENT: Pharynx normal. Neck: Normal inspection. Neck supple. No lymph nodes noted. No crepitus CVS: Normal heart rate and rhythm. Pulses normal. Normal S1 and S2 Respiratory: No respiratory distress. Breath sounds normal. No Wheezing. No rales Abdomen: Soft and nontender. No rigidity. No distention. Skin: Skin warm and dry. Normal skin color. Normal skin turgor. Extremities: No lower extremity edema. No Lacerations. No Rash Neuro: Oriented X 3. No motor deficit. No sensory deficit. Moving all extremities. No slurred speech. CN 2 through 12 grossly intact Psych: calm, cooperative, normal affect Course Course Course Narrative: -that she is compliant with her medications. Patient is already on a high dose of meds. -I discussed with the patient that once we get her blood pressure under control, I suggest that we admit her to get her blood pressure under better control. -however, patient states that she is currently living with some friends, and today she is going to check out a new apartment. Patient states that today's the last day that she can checked that apartment and she does not want to miss the opportunity. Patient declined the admission Medications Administered Discontinued Medications Generic Name Dose Route Start Last Admin Trade Name Nabila HARDIN Reason Stop Dose Admin Labetalol HCl 20 mg 08/14/23 00:07 08/14/23 00:26 Labetalol Hcl 100 Mg/20 Ml Vial IVPUSH 08/14/23 00:08 20 mg ONCE ONE Administration Morphine Sulfate 4 mg 08/14/23 00:07 08/14/23 00:26 Morphine Sulfate 4 Mg/Ml Cartridge IVPUSH 08/14/23 00:08 4 mg ONCE ONE Administration Protocol Medical Decision Making Medical Decision Making MDM Narrative: -my interpretation of EKG: Normal sinus rhythm, heart rate 77, nonspecific ST segment depression in lead to 1 mm, no reciprocal changes, no ST segment depressions or elevations, no T-wave inversions, QTC 450 -my interpretation of labs: Hematology at baseline, chemistry within normal limits. However, troponin is slightly bumped today, 19.7. Patient's blood work will be repeated at 3 a.m.. The slight troponin increase may be secondary to hypertension. Patient has a BNP of 160 which is at baseline for the patient -patient's current blood pressure 174/69, heart rate 77. -in total, patient receive 20 mg IV of labetalol, hydralazine 5 mg IV, 8 mg of morphine for headache. Patient overall starting to feel better. However, we will go ahead and repeat a troponin at 03:00. -as mentioned above, patient declined admission. -troponin 2. Pending at 03:00, sign-out given to my colleague Dr. Reed Differential Diagnosis Differential Diagnoses: The differential diagnosis associated with the presentation includes (Hypertensive urgency, hypertensive emergency, chronic hypertension, ACS) Admission/Observation Consideration of admission/observation: Escalation of care including admission/observation considered (Admission was offered and recommended. Patient declined) Lab Data [facility] Lab Attestation statement: I reviewed the patient's lab results. 08/14/23 00:19 08/14/23 00:19 Labs: Lab Results 08/14/23 Range/Units 00:19 WBC 6.9 (4.8-10.8) X10*3/uL RBC 3.80 L (4.20-5.50) X10*6/uL Hgb 11.4 L (12.0-16.0) g/dl Hct 34.1 L (37.0-47.0) % MCV 89.7 (80.0-98.0) fL MCH 30.0 (27.0-33.0) pg MCHC 33.4 (31.0-35.0) g/dl RDW 13.3 (11.0-16.0) % Plt Count 281 (160-400) X10*3/uL MPV 8.9 L (9.4-12.3) fL Immature Gran % (Auto) 0.3 (0.0-0.4) % Neut % (Auto) 61.1 (45-73) % Lymph % (Auto) 28.9 (20-40) % [place] % (Auto) 6.8 (2-11) % Eos % (Auto) 2.5 (0-4) % Baso % (Auto) 0.4 (0-2) % Lymph # (Auto) 2.0 (1.2-4.9) X10*3/uL [place] # (Auto) 0.5 (0.1-1.2) X10*3/uL Eos # (Auto) 0.2 (0.0-0.4) X10*3/uL Baso # (Auto) 0.0 (0.0-0.2) X10*3/uL Abs Immat Gran (auto) 0.02 (0.00-0.03) X10*3/uL Absolute Neuts (auto) 4.2 (2.0-8.3) x10*3/uL Absolute Nucleated RBC 0.000 (0.0-0.012) X10*3/uL Nucleated RBC % (auto) 0.0 (0.0-0.2) /100WBC Sodium 142 (135-145) mmol/L Potassium 3.9 (3.3-5.1) mmol/L Chloride 106 (96-108) mmol/L Carbon Dioxide 26 (22-29) mmol/L Anion Gap 14 (12-20) BUN 19 H (9-16) mg/dL Creatinine 1.13 (0.5-1.4) mg/dL Estim Creat Clear Calc 44.9 Estimated GFR 49 Random Glucose 218 H (60-115) mg/dL Calcium 10.0 D (8.4-10.2) mg/dL Troponin I High Sens 19.7 H D (<3.5-17.0) ng/L B-Natriuretic Peptide 160 H (<100) pg/mL Independent Interpretation I performed an independent interpretation of an: EKG and CT Scan Interpretation: FINDINGS: There is no evidence of acute intracranial hemorrhage or territorial infarction. No abnormal mass-effect or midline shift is seen. Kelly to white matter differentiation is well preserved. No extra-axial fluid collections are identified. The ventricles are normal in size. There is no abnormal attenuation within the brain parenchyma. There is no osseous abnormality. The mastoid air cells and visualized portions of the paranasal sinuses are well-aerated. CT/CT head/brain wo IV con IMPRESSION: No acute intracranial pathology. Critical Care Time Critical Care Time Critical Care Time: Yes Total Critical Care Time: 75 Attestation: I have personally provided critical care time. Time includes review of lab data, radiology results, discussion with consultants, and monitoring for potential decompensation. Intervention performed as documented. Discharge Plan Discharge Clinical Impression: Hypertensive urgency Patient Disposition: Left Against Medical Advice Prescriptions: No Action pioglitazone 15 mg tablet 15 mg PO DAILY 30 Days Qty: 30 11RF (DME) lancets [TRUEplus Lancets] 33 gauge misc See Rx Instructions .Route Qty: 100 11RF Rx Instructions: 4x daily metformin 1,000 mg Tablet 1,000 mg PO BID ferrous sulfate 325 mg (65 mg iron) tablet 325 mg PO BID Qty: 60 0RF clopidogrel [Plavix] 75 mg tablet 75 mg PO DAILY Qty: 30 5RF docusate sodium [Colace] 100 mg capsule 100 mg PO BID PRN (Reason: Constipation) Qty: 14 0RF amlodipine 10 mg Tablet 10 mg PO BEDTIME fluticasone propionate 50 mcg/actuation [place],Suspension 2 spray INTRANASAL DAILY PRN (Reason: Allergy Symptoms) acetaminophen [Arthritis Pain Relief (acetam)] 650 mg Tablet Extended Release 650 mg PO Q8H PRN (Reason: Pain (Scale Score 1-3)) fluticasone propionate [Flovent HFA] 110 mcg/actuation Hfa Aerosol Inhaler 2 puff INHALATION BID PRN (Reason: Shortness Of Breath Or Wheezing) amitriptyline 50 mg tablet 50 mg PO BEDTIME hydralazine 50 mg tablet 50 mg PO TID Qty: 3 0RF sennosides [senna] 8.6 mg tablet 17.2 mg PO BEDTIME PRN (Reason: constipation) baclofen 10 mg tablet 10 mg PO TID PRN (Reason: muscle spasm) hydroxyzine pamoate 25 mg capsule 25 mg PO Q6H PRN (Reason: anxiety) hydralazine 25 mg tablet 25 mg PO TID polyethylene glycol 3350 [Miralax] 17 gram/dose powder 17 g PO DAILY PRN (Reason: Constipation) carvedilol [Coreg] 25 mg tablet 25 mg PO BID Rx Instructions: must administer with a meal/food multivitamin Tablet 1 tab PO DAILY lisinopril 40 mg tablet 40 mg PO DAILY gabapentin 800 mg tablet 800 mg PO TID aspirin [Adult Low Dose Aspirin] 81 mg tablet,delayed release (DR/EC) 81 mg PO DAILY escitalopram oxalate [Lexapro] 20 mg tablet 20 mg PO DAILY mirtazapine 45 mg tablet 45 mg PO BEDTIME atorvastatin [Lipitor] 80 mg tablet 80 mg PO BEDTIME Tresiba FlexTouch U-100 100 unit/mL (3 mL) insulin pen 10 unit subcut DAILY (DME) FreeStyle Lite Strips Strip See Rx Instructions Not Applicable QID Qty: 10 Rx Instructions: As directed Asmanex HFA 100 mcg/actuation HFA aerosol inhaler 2 puff inhalation BID oxycodone 5 mg tablet 5 mg PO 5XD PRN (Reason: Severe Pain (Scale Score 7-10)) omeprazole 20 mg capsule,delayed release(DR/EC) 40 mg PO DAILY PRN (Reason: Heartburn) spironolacton-hydrochlorothiaz 25-25 mg tablet 1 tab PO DAILY Qty: 90 0RF Print Language: Mosotho
[2023-08-14] MEDS: hydrALAZINE HCl 20 MG/ML VIAL 5 MG IVPUSH (01:23)
[2023-08-14 04:31] LABS: Troponin-I High Sensitivity 19.9 ng/L (<3.5-17.0)
== END 2023-08-14 04:48 | disposition left against medical advice (07) ==
PROVIDERS: Emergency Medicine; Emergency Provider Emergency Medicine
DX: I16.0 Hypertensive urgency (principal); R51.9 Headache, unspecified; R94.31 Abnormal electrocardiogram [ECG] [EKG]; Z79.899 Other long term (current) drug therapy
CPT/HCPCS: 36415; 70450; 80048; 83880; 84484; 85025; 93005; 96374; 96375; 96376; 99284; 99285; J0360; J1920; J2270

== ENCOUNTER → 2023-08-14 00:07 | Outpatient (BNV) | payer MEDICAID, SELFPAY | PROVIDERS: Emergency Provider Emergency Medicine; Visit Provider Internal Medicine | DX: I10 Essential (primary) hypertension (principal); I51.7 Cardiomegaly; R94.31 Abnormal electrocardiogram [ECG] [EKG] | CPT/HCPCS: 93010 ==

== ENCOUNTER 2023-08-21 13:42 | Outpatient (AMB) | payer MEDICAID, SELFPAY ==
--- NOTE | 2023-08-21 13:44 | HO.NEPHOV_ITS ---
Vital Signs 08/21/23 13:46 Height 5 ft Weight 144 lb BMI 28.1 BP 150/70 H Blood Pressure Location Lt brachial Position Sitting Pulse 86 Pulse Source Pulse Oximeter Pulse Oximetry (%) 96 Oxygen Delivery Method Room Air Intake Visit Reasons: hypertension/ conf Molecular Modeler Required: No Accompanied by: Daughter Allergies latex [LATEX] Allergy (Severe, Verified 08/21/23 13:48) RASH naproxen [From NAPROSYN] Adverse Reaction (Intermediate, Verified 08/21/23 13:48) TACHYCARDIA Medication List - Last Reconciled 08/21/23 by Pratik Horn MD acetaminophen ER (Arthritis Pain Relief (acetaminophen) ER) 650 mg PO Q8H PRN amitriptyline 50 mg PO BEDTIME amlodipine 10 mg PO BEDTIME aspirin (Adult Low Dose Aspirin) 81 mg PO DAILY atorvastatin (Lipitor) 80 mg PO BEDTIME baclofen 10 mg PO TID PRN blood sugar diagnostic (FreeStyle Lite Strips) As directed carvedilol (Coreg) 25 mg PO BID clopidogrel (Plavix) 75 mg PO DAILY docusate sodium (Colace) 100 mg PO BID PRN escitalopram oxalate (Lexapro) 20 mg PO DAILY ferrous sulfate 325 mg PO BID fluticasone propionate 50 mcg/actuation 2 sprays intranasal DAILY PRN fluticasone propionate 110 mcg/actuation (Flovent HFA) 2 puffs inhalation BID PRN gabapentin 800 mg PO TID hydralazine 50 mg PO TID hydralazine 25 mg PO TID hydroxyzine pamoate 25 mg PO Q6H PRN insulin degludec (Tresiba FlexTouch U-100 insulin) 10 units subcut DAILY lancets (TRUEplus Lancets) 4x daily lisinopril 40 mg PO DAILY metformin 1,000 mg PO BID mirtazapine 45 mg PO BEDTIME mometasone 100 mcg/actuation (Asmanex HFA) 2 puffs inhalation BID multivitamin 1 tab PO DAILY omeprazole 40 mg PO DAILY PRN oxycodone 5 mg PO 5XD PRN pioglitazone 15 mg PO DAILY 30 days polyethylene glycol 3350 (Miralax) 17 grams PO DAILY PRN sennosides (senna) 17.2 mg PO BEDTIME PRN spironolacton-hydrochlorothiaz 25-25 mg 1 tab PO DAILY HPI Comments Details: . Rocío is a 62-year-old woman with a significant vascular disease and resistant hypertension. She is on multiple antihypertensive medications in the blood pressure is still suboptimal. She did not bring her list of medications. However from the available data it appears that she is on amlodipine 10 mg carvedilol 25 mg twice a day clonidine patch, hydralazine 50 mg t.i.d. lisinopril 40 mg and hydrochlorothiazide 25 mg. She tells me that she has been compliant with her medications. There is a question of renal artery stenosis. However she had a Doppler ultrasound a year ago which was inconclusive however she had a CT angiogram in 2021 which did not reveal any significant renal artery stenosis. She has normal renal function with a creatinine of less than 1. She has non nephrotic range proteinuria with a urine protein creatinine ratio revealing 1000 mg of protein excretion. She has carotid artery disease with 60-70% mid RCA stenosis History of peripheral vascular disease status post fem-pop bypass surgery and left femoral endarterectomy and left popliteal thrombectomy. She has a history of smoking for many years. She continues to smoke half a pack per day. She has dyslipidemia with a total cholesterol of 240 and LDL of 165. She is on atorvastatin 80 mg daily. 07/27/2023. She is accompanied by her daughter. She is tolerating Aldactazide. Yesterday her blood pressure was around 200 mm Hg systolic. However she did not take her medications yesterday. Today she is feeling fine office readings are excellent. Renal angiogram is still pending 08/21/2023. Accompanied by her daughter. She tells me that her blood pressure increases every time she takes hydralazine therefore she stopped taking hydralazine. At present she is on lisinopril 40 mg and Aldactazide 25/25 1 a day. Upon talking to her I am not sure if she is really taking her medications. She was scheduled for renal angiogram next week. No specific complaints today [facility] Medical History Mild aortic valve stenosis LORE (obstructive sleep apnea) Chronic low back pain Lumbar spinal stenosis HTN (hypertension) Vitamin D deficiency HLD (hyperlipidemia) T2DM (type 2 diabetes mellitus) H. pylori infection CAD (coronary artery disease) Cyst (solitary) of breast Kidney calculi Arthritis Asthma HTN (hypertension) Diabetes Surgical History History of right-sided carotid endarterectomy (~11/2022) S/P aortogram History of esophagogastroduodenoscopy (EGD) Hx of colonoscopy History of breast surgery History of cardiac cath Family History Mother Diabetes Liver cancer Social History Household Members: Family and Friend(s) Household Members Other:: friend and adult son Housing: Apartment Are you a primary anesthesiologist and critical care to a significant other at home: No Do you presently have visiting nurse or other home services: No Alcohol intake: never Comment: pt sleeping Patient Tobacco Use Status: Former Tobacco user Tobacco use type: Cigarette Cigarette Packs Per Day: 1 Cigarettes Per Day: 3 Years Smoked: 40 e-Cigarette/Vaping Use: Never Used Second Hand Smoke Exposure: No service: No Current occupational status: unemployed and disabled Physical Exam Vital Signs: Last Vital Signs Pulse 86 08/21/23 13:46 BP 150/70 H 08/21/23 13:46 Pulse Ox 96 08/21/23 13:46 Oxygen Delivery Method Room Air 08/21/23 13:46 BMI result Body Mass Index 28.1 Repeat blood pressure was 180/80 mm Hg in both upper extremities Const General: comfortable; No acute distress Orientation/consciousness: patient oriented x3 Eyes General: appearance normal, both eyes and all related structures Visual Staples: normal visual staples by confrontation Neck Neck: Yes supple and Yes no JVD Resp Effort & Inspection: normal respiratory effort and respiratory effort not decreased Auscultation: rhonchi Cardio Palpation: no palpable S3 and no palpable S4 Heart sounds: no rubs GI Inspection: Yes normal to inspection Palpation (GI): Soft to palpation Percussion: Yes normal to percussion Auscultation: normal bowel sounds General: Yes no CVA tenderness Back/Spine/Pelvis Back: no CVA tenderness Skin General skin exam: no petechiae and no purpura Neuro General: patient oriented x3 and no focal motor deficits Extrem General: No clubbing and No edema Results Reviewed Nephrology Results: Hgb 11.4 g/dl (12.0-16.0) L 08/14/23 WBC 6.9 X10*3/uL (4.8-10.8) 08/14/23 Plt Count 281 X10*3/uL (160-400) 08/14/23 Sodium 142 mmol/L (135-145) 08/14/23 Potassium 3.9 mmol/L (3.3-5.1) 08/14/23 Chloride 106 mmol/L (96-108) 08/14/23 Carbon Dioxide 26 mmol/L (22-29) 08/14/23 BUN 19 mg/dL (9-16) H 08/14/23 Creatinine 1.13 mg/dL (0.5-1.4) 08/14/23 Calcium 10.0 mg/dL (8.4-10.2) 08/14/23 Assessment & Plan Assessment & Plan (1) HTN (hypertension): Code(s): I10 - Essential (primary) hypertension Category: Medical (2) PVD (peripheral vascular disease): Code(s): I73.9 - Peripheral vascular disease, unspecified Category: Medical (3) T2DM (type 2 diabetes mellitus): Code(s): E11.9 - Type 2 diabetes mellitus without complications Category: Medical Qualifiers: 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 mellitus 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 insulin use: without 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 use Diabetes mellitus complication status: with ophthalmic complications Diabetes mellitus complication detail: with diabetic retinopathy Diabetic retinopathy severity: with mild nonproliferative retinopathy Diabetes mellitus macular edema: with macular edema Laterality: bilateral Qualified Code(s): E11.3213 - Type 2 diabetes mellitus with mild nonproliferative diabetic retinopathy with macular edema, bilateral (4) Proteinuria: Code(s): R80.9 - Proteinuria, unspecified Category: Medical (5) Anemia: Code(s): D64.9 - Anemia, unspecified Category: Medical Plan . Rocío has a resistant hypertension in a setting of significant vascular disease. She probably has underlying renal artery stenosis. Back in 2021 renal angiogram did not reveal any stenosis. However the ultrasonogram was inconclusive. Based on the history and clinical findings we still need to rule out renal artery stenosis. Await renal angiogram. She canceled the previous appointment. She has been rescheduled for August 28. Today the blood pressure is suboptimal Increase Aldactazide 25/25 2 tablets a day I discontinued hydralazine since she has not taking it anyway Follow renal function and potassium 24 hour ambulatory blood pressure monitoring was incomplete and results are inconclusive I discussed low-salt diet and smoking cessation again. At present renal function is stable. She has non nephrotic range proteinuria most likely due to hypertensive diabetic kidney disease. She is at risk for ongoing renal injury from suboptimally controlled blood pressure. Continue to maximize CHERRI inhibition for renal protection. She will benefit from SGLT2 inhibitors. I have discussed with her daughter regarding staying compliant with her medications. I have asked him to bring all her medications during her next visit. I will see her again in 2 weeks after she completes the renal angiogram. . Orders: Orders Basic Metabolic Panel 2 Weeks I10 - Essential (primary) hypertension Medications: Changed From spironolacton-hydrochlorothiaz 25-25 mg 1 tab PO DAILY 90 tabs 0RF To spironolacton-hydrochlorothiaz 25-25 mg 2 tabs PO DAILY 90 tabs 0RF Discontinued 2 hydralazine Discontinued Reason: Doctor's Order 50 mg PO TID 3 tabs 0RF Coding Level of Care Code Est Pt Level 4 (98122) Diagnoses Hypertension, unspecified type I10 PVD (peripheral vascular disease) I73.9 Type 2 diabetes mellitus with both eyes affected by mild nonproliferative retin opathy and macular edema, without long-term current use of insulin E11.3213 Diabetes mellitus care home insulin use: without care home use Diabetes mellitus complication status: with ophthalmic complications Diabetes mellitus complication detail: with diabetic retinopathy Diabetic retinopathy severity: with mild nonproliferative retinopathy Diabetes mellitus macular edema: with macular edema Laterality: bilateral Proteinuria R80.9 Anemia D64.9
[2023-08-21 13:46] VITALS: BP 150/70; PULSE 86; O2SAT 96; BMI 28.1
== END 2023-08-21 16:00 | disposition home or self-care (01) ==
PROVIDERS: PCP Family Medicine; Referring Provider Family Medicine; Visit Provider Internal Medicine Hypertension Specialist
DX: I10 Essential (primary) hypertension (principal); I73.9 Peripheral vascular disease, unspecified; E11.3213 Type 2 diabetes mellitus with mild nonproliferative diabetic retinopathy with macular edema, bilateral; R80.9 Proteinuria, unspecified; D64.9 Anemia, unspecified
CPT/HCPCS: 99214

== ENCOUNTER → 2023-08-21 13:42 | Outpatient (BNVA) | payer MEDICAID, SELFPAY | PROVIDERS: PCP Family Medicine; Visit Provider Internal Medicine Hypertension Specialist | DX: I10 Essential (primary) hypertension (principal); I73.9 Peripheral vascular disease, unspecified; E11.3213 Type 2 diabetes mellitus with mild nonproliferative diabetic retinopathy with macular edema, bilateral; R80.9 Proteinuria, unspecified; D64.9 Anemia, unspecified | CPT/HCPCS: 99212 ==

== ENCOUNTER 2023-08-29 10:43 | Day surgery (SDC) | payer MEDICAID, SELFPAY ==
[2023-08-29] VITALS (11 sets, daily range): BP systolic 174–235; BP diastolic 66–86; PULSE 64–74; RESP 16–18; TEMP 36.4–36.7; O2SAT 93–99; BMI 27.3
--- NOTE | ~2023-08-29 | IR_ITS ---
PROCEDURE: IR MESENTERIC ANGIOGRAPHY FOR GI BLEEDING CLINICAL INFORMATION: Renal angiogram COMPARISON: CT abdomen and pelvis 04/17/2022. Abdominal/lower extremity angiogram 04/13/2022 OPERATORS: RESIDENT: None ATTENDING: Dr. Larson, attending interventional radiologist performed the procedure. TECHNIQUE: ANESTHESIA: Moderate sedation was provided by administrating divided doses of midazolam and fentanyl throughout the total intra-service time of 46 minutes during which the patient's hemodynamic parameters were continuously monitored by myself and an independent trained radiology nurse. 1% lidocaine was injected in the skin and subcutaneous tissues overlying the access site. MEDICATIONS: None CONTRAST: Omnipaque, FLUOROSCOPY TIME: 2.6 min DAP: 286 uGy-m2 PROCEDURE: 1. Right common femoral artery access. 2. Bilateral renal arteriogram PROCEDURE DETAILS: Following the discussion of the risks, benefits and alternatives to the procedure, written informed consent was obtained . The patient was then brought to the angiography suite and placed supine on the exam table. A pre-procedure time out was performed per protocol. Bilateral groins were prepped and draped using all elements of maximal sterile barrier technique including sterile gloves, sterile gown, cap, mask, large sterile sheet, sterile ultrasound probe cover, hand hygiene and cutaneous antisepsis with 2% chlorhexidine. Using ultrasound and fluoroscopic guidance, the right common femoral artery was punctured using a micropuncture set at the level of the mid-femoral head. Ultrasound was used to confirm vessel patency and to guide arterial access. A permanent ultrasound image was saved to PACS. A 0.018 wire was passed easily into the vessel lumen. A small skin incision was made over the needle. Then the inner dilator and wire were removed. Angiogram through the outer dilator demonstrates the puncture site to be above the bifurcation. 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 There is flow into the profunda. A Bentson wire was advanced under fluoroscopy into the aorta. The micropuncture sheath was exchanged for a 5-[place] sheath. A Sos Omni 2 catheter was advanced over a Bentson wire into the aorta. The catheter was formed in the thoracic aorta and withdrawn into the abdominal aorta. The right renal artery was selected first. A digital subtraction angiogram (DSA) was performed which demonstrated widely patent right renal artery. Then, the left renal artery was performed. A left renal artery DSA was performed which demonstrated widely patent left renal artery. All catheters and wires were removed. A right common femoral digital angiogram was performed to assess site of arteriotomy. The sheath was then removed and hemostasis was achieved with a celt device and manual compression. Ultrasound demonstrates successful closure with no evidence of injury to the vessel. The patient tolerated the procedure well. IR/IR angio renal BI IMPRESSION: Diagnostic angiogram demonstrating widely patent bilateral renal arteries.
[2023-08-29 11:22] LABS: Prothrombin Time 11.7 SEC (11.1-13.3)
[2023-08-29 11:25] LABS: Partial Thromboplastin Time 32.9 SEC (26.0-36.8)
[2023-08-29 11:59] LABS: Glucose, Whole Blood 183 mg/dL (60-115)
--- NOTE | 2023-08-29 12:29 | PC.NURSE ---
Stuart Nix PA and radiology nurses were updated that patient admits to being non-compliant with her bp meds and aware of today's results and that with an client technical support associate present that patient believes that she was told to stop her Plavix/ASA 30 days ago per her reflow operator and patient is unsure if she is going back on it or it was stopped for today's procedure. Author called daughter and she was unable to verify any information regarding Plavix/ASA. Per Stuart Nix OK to proceed.
--- NOTE | 2023-08-29 12:37 | PC.NURSE ---
Author spoke with patient daughter at this time, to update her regarding today's bp results and patient admittedly being non compliant with her bp meds and unsure of her Plavix/ASA regimen. Margret Henao, states that she will f/u with mother's doctors today and assist her with being more compliant with her medications and determine her Plaxix/ASA regimen (if it has been stopped or if she is to be taking them - as patient is a poor historian regarding this question).
--- NOTE | 2023-08-29 12:47 | PC.NURSE ---
Unable to confirm patient medications today in MAR, due to patient being a poor historian regarding medications. See note regarding phone call with daughter. Patient is alert and oriented x 3.
--- NOTE | 2023-08-29 12:51 | P.HPSUR_ITS ---
Pre-Procedural Eval Section A - 24 Hr Update-Section A only Date of Service: 08/29/23 Section B - Complete if H&P > 30 days Chief Complaint: HYPERTENSION Details of Present Illness: 62 y/o female with HTN resistant to multiple medications. Imaging is equivocal for WILFREDO. She presents for renal artery angiogram Relevant Family History (Specify if Yes): No Relevant Social History: None Present Medications: see Short Stay Collaborative assessment Medical History: Significant History History of Previous Operations: Relevant previous surgery/procedure and date(s) (Right CEA, CABG) Allergies: Allergies Allergy/AdvReac Type Severity Reaction Status Date / Time latex [LATEX] Allergy Severe RASH Verified 08/29/23 11:00 naproxen [From NAPROSYN] AdvReac Intermediate TACHYCARDIA Verified 08/29/23 11:00 Review of Systems Sugical H&P ROS: Negative: Cardiovascular, Respiratory, Neurological and Integumentary Exam Surgical H&P Exam: Normal: Heart, Normal: Lungs, Normal: Skin and Normal: Ne urological Plan Bilateral renal artery angiogram, possible intervention Time Spent With Patient Time: Total time managing care of this patient today ____ minutes.
[2023-08-29] MEDS: Acetaminophen 325 MG TABLET 650 MG PO (15:04)
== END 2023-08-29 17:29 | disposition home or self-care (01) ==
LOC: HO.SSS 10:44
PROVIDERS: Physician Assistant Surgical; Radiology Vascular & Interventional Radiology; Visit Provider Internal Medicine Hypertension Specialist
DX: I1A.0 Resistant hypertension (principal); I99.9 Unspecified disorder of circulatory system; I25.10 Atherosclerotic heart disease of native coronary artery without angina pectoris; Z95.5 Presence of coronary angioplasty implant and graft; E11.3213 Type 2 diabetes mellitus with mild nonproliferative diabetic retinopathy with macular edema, bilateral; R80.9 Proteinuria, unspecified; D64.9 Anemia, unspecified; Z79.82 Long term (current) use of aspirin; Z79.899 Other long term (current) drug therapy; Z79.4 Long term (current) use of insulin; Z88.6 Allergy status to analgesic agent; Z91.040 Latex allergy status; Z56.0 Unemployment, unspecified; F17.210 Nicotine dependence, cigarettes, uncomplicated
CPT/HCPCS: 36252; 36415; 82947; 85610; 85730; 99152; 99153; J1644; J2250; J2310; J3010; Q9967

== ENCOUNTER → 2023-08-29 12:59 | Outpatient (BNV) | payer MEDICAID, SELFPAY | PROVIDERS: Visit Provider Student in an Organized Health Care Education/Training Program | DX: K92.2 Gastrointestinal hemorrhage, unspecified (principal) | CPT/HCPCS: 36252; 76937; 99152 ==

== ENCOUNTER 2023-08-30 19:49 | Emergency (ER) | payer MEDICAID, SELFPAY ==
[2023-08-30 19:58] VITALS: BP 165/67; BP 190/90; PULSE 75; PULSE 78; RESP 16; TEMP 36.7; O2SAT 95; O2SAT 98
--- NOTE | 2023-08-30 19:59 | ED.GENADULT ---
HPI - General Adult General Chief complaint: General Medical Stated complaint: elevated BP, groin pain Time Seen by Provider: 08/30/23 19:57 Source: patient Mode of arrival: EMS Limitations: no limitations History of Present Illness ED Provider: eric METZ narrative: Patient is status post right femoral artery stent placement yesterday on chronic pain management missed her oxycodone all day today and she did not get the medication pill today comes here as she noticed headache which is chronic blood pressure was elevated 190/90 EMS gave her 0.4 mg of nitro sublingual on arrival blood pressure was 169/51 no nausea no vomiting no chest pain or palpitation Related Data Home Medications ?Medication ?Instructions ?Recorded ?Confirmed metformin 1,000 mg tablet 1,000 mg PO BID 12/22/19 08/21/23 aspirin 81 mg tablet,delayed 81 mg PO DAILY 01/02/20 08/21/23 release (Adult Low Dose Aspirin) atorvastatin 80 mg tablet (Lipitor) 80 mg PO BEDTIME 01/02/20 08/21/23 carvedilol 25 mg tablet (Coreg) 25 mg PO BID 01/02/20 08/21/23 escitalopram oxalate 20 mg tablet 20 mg PO DAILY 01/02/20 08/21/23 (Lexapro) gabapentin 800 mg tablet 800 mg PO TID 01/02/20 08/21/23 lisinopril 40 mg tablet 40 mg PO DAILY 01/02/20 08/21/23 mirtazapine 45 mg tablet 45 mg PO BEDTIME 01/02/20 08/21/23 multivitamin 1 tab PO DAILY 01/02/20 08/21/23 acetaminophen 650 mg 650 mg PO Q8H PRN Pain (Scale 01/16/21 08/21/23 tablet,extended release (Arthritis Score 1-3) Pain Relief (acetaminophen) ER) amlodipine 10 mg tablet 10 mg PO BEDTIME 01/16/21 08/21/23 fluticasone propionate 110 2 puff inhalation BID PRN 01/16/21 08/21/23 mcg/actuation HFA aerosol inhaler Shortness Of Breath Or Wheezing (Flovent HFA) fluticasone propionate 50 2 spray intranasal DAILY PRN 01/16/21 08/21/23 mcg/actuation nasal Allergy Symptoms spray,suspension blood sugar diagnostic (FreeStyle #10 ea 03/30/21 08/21/23 Lite Strips) insulin degludec 100 unit/mL (3 10 unit subcut DAILY 10/03/22 08/21/23 mL) subcutaneous pen (Tresiba FlexTouch U-100 insulin) amitriptyline 50 mg tablet 50 mg PO BEDTIME 11/07/22 08/21/23 mometasone 100 mcg/actuation HFA 2 puff inhalation BID 06/12/23 08/21/23 aerosol inhaler (Asmanex HFA) oxycodone 5 mg tablet 5 mg PO 5XD PRN Severe Pain (Scale 06/12/23 08/21/23 Score 7-10) omeprazole 20 mg capsule,delayed 40 mg PO DAILY PRN Heartburn 07/19/23 08/21/23 release baclofen 10 mg tablet 10 mg PO TID PRN muscle spasm 07/28/23 08/21/23 hydroxyzine pamoate 25 mg capsule 25 mg PO Q6H PRN anxiety 07/28/23 08/21/23 polyethylene glycol 3350 17 17 g PO DAILY PRN Constipation 07/28/23 08/21/23 gram/dose oral powder (Miralax) sennosides 8.6 mg tablet (senna) 17.2 mg PO BEDTIME PRN constipation 07/28/23 08/21/23 Previous Rx's ?Medication ?Instructions ?Recorded ferrous sulfate 325 mg (65 mg 325 mg PO BID #60 tabs 05/24/20 iron) tablet clopidogrel 75 mg tablet (Plavix) 75 mg PO DAILY #30 tabs 12/02/20 pioglitazone 15 mg tablet 15 mg PO DAILY 30 days #30 tabs 12/02/20 lancets 33 gauge (TRUEplus Lancets) #100 ea 07/26/21 docusate sodium 100 mg capsule 100 mg PO BID PRN Constipation #14 04/17/22 (Colace) caps spironolactone 25 2 tab PO DAILY #90 tabs 08/21/23 mg-hydrochlorothiazide 25 mg tablet Allergies Allergy/AdvReac Type Severity Reaction Status Date / Time latex [LATEX] Allergy Severe RASH Verified 08/30/23 20:04 naproxen [From NAPROSYN] AdvReac Intermediate TACHYCARDIA Verified 08/30/23 20:04 Review of Systems Review of Systems: Yes all other systems are reviewed and are negative PMFSH Past Medical History Medical History Mild aortic valve stenosis LORE (obstructive sleep apnea) Chronic low back pain Lumbar spinal stenosis HTN (hypertension) Vitamin D deficiency HLD (hyperlipidemia) T2DM (type 2 diabetes mellitus) H. pylori infection CAD (coronary artery disease) Cyst (solitary) of breast Kidney calculi Arthritis Asthma HTN (hypertension) Diabetes Surgical History History of right-sided carotid endarterectomy (~11/2022) S/P aortogram History of esophagogastroduodenoscopy (EGD) Hx of colonoscopy History of breast surgery History of cardiac cath Family History Family History Mother Diabetes Liver cancer Social History Social History Household Members: Family and Friend(s) Household Members Other:: friend and adult son Housing: Apartment Are you a primary day care home provider to a significant other at home: No Do you presently have visiting nurse or other home services: No Alcohol intake: never Comment: pt sleeping Patient Tobacco Use Status: Current everyday Tobacco user Tobacco use type: Cigarette Cigarette Packs Per Day: 1 Cigarettes Per Day: 3 Years Smoked: 40 Smoked in Last 30 Days: No e-Cigarette/Vaping Use: Never Used Second Hand Smoke Exposure: No Use of substances other than those prescribed or required for medical reasons: No Advance Directives: No Advance Directives Information Provided: No Do you have a plan to hurt others: No Plan service: No Current occupational status: unemployed and disabled Physical Exam ED Vital Signs: Vital Signs - 24 hr 08/30/23 19:58 08/30/23 20:23 08/30/23 21:10 Temperature 98.1 F 98.1 F Pulse Rate 78 75 65 Respiratory Rate 16 16 16 Blood Pressure 165/67 H 159/60 H 152/60 H Pulse Oximetry 98 100 98 Oxygen Delivery Method Room Air Room Air Room Air BMI result Body Mass Index 27.5 Appearance: Alert. Oriented X3. No acute distress. Eyes: PERRLA, No Nystagmus ENT: Pharynx normal. Oral Mucosa moist Neck: Normal inspection. Neck supple. CVS: Normal heart rate and rhythm. Pulses normal. Respiratory: No respiratory distress. Equal air entry bilateral, no wheezing/rales/rhonchi Abdomen: Soft and nontender. Bowel sounds are present, no mass palpable, no CVA tenderness Skin: Skin warm and dry. Normal skin color. Normal skin turgor. Extremities: No lower extremity edema. No calf tenderness dressing at right femoral artery in place no swelling no hematoma no bruit Neuro: Oriented X 3. No motor deficit. No sensory deficit.No cerebellar signs , cranial nerves II-XII intact Medications Administered Discontinued Medications Generic Name Dose Route Start Last Admin Trade Name Freq PRN Reason Stop Dose Admin Ondansetron HCl 4 mg 08/30/23 20:24 08/30/23 20:30 Ondansetron Hcl 4 Mg/2 Ml Vial IVPUSH 08/30/23 20:25 4 mg ONCE ONE Administration Oxycodone HCl 10 mg 08/30/23 20:14 08/30/23 20:17 Oxycodone Hcl Immed Release 5 Mg Tablet PO 08/30/23 20:15 10 mg ONCE ONE Administration Medical Decision Making Medical Decision Making [facility] Narrative: Patient with chronic pain syndrome chronic frequent headaches ran out of her medication oxycodone as pharmacy did not deliver the medication today comes here for headache and slightly elevated blood pressure which improved will give oxycodone patient vitals are stable at this time will be getting her medication tomorrow Differential Diagnosis Differential Diagnoses: The differential diagnosis associated with the presentation includes Lab Data Labs: Lab Results 08/30/23 Range/Units 21:17 POC Glucose 264 H (60-115) mg/dL Independent Interpretation I performed an independent interpretation of an: EKG Discharge Plan Discharge Clinical Impression: Chronic pain Patient Disposition: Home, Self-Care Instructions: Chronic Pain (ED) Additional Instructions: Take your pain medication as prescribed by your PCP Prescriptions: No Action pioglitazone 15 mg tablet 15 mg PO DAILY 30 Days Qty: 30 11RF (DME) lancets [TRUEplus Lancets] 33 gauge misc See Rx Instructions .Route Qty: 100 11RF Rx Instructions: 4x daily metformin 1,000 mg Tablet 1,000 mg PO BID ferrous sulfate 325 mg (65 mg iron) tablet 325 mg PO BID Qty: 60 0RF clopidogrel [Plavix] 75 mg tablet 75 mg PO DAILY Qty: 30 5RF docusate sodium [Colace] 100 mg capsule 100 mg PO BID PRN (Reason: Constipation) Qty: 14 0RF amlodipine 10 mg Tablet 10 mg PO BEDTIME fluticasone propionate 50 mcg/actuation [place],Suspension 2 spray INTRANASAL DAILY PRN (Reason: Allergy Symptoms) acetaminophen [Arthritis Pain Relief (acetam)] 650 mg Tablet Extended Release 650 mg PO Q8H PRN (Reason: Pain (Scale Score 1-3)) fluticasone propionate [Flovent HFA] 110 mcg/actuation Hfa Aerosol Inhaler 2 puff INHALATION BID PRN (Reason: Shortness Of Breath Or Wheezing) amitriptyline 50 mg tablet 50 mg PO BEDTIME sennosides [senna] 8.6 mg tablet 17.2 mg PO BEDTIME PRN (Reason: constipation) baclofen 10 mg tablet 10 mg PO TID PRN (Reason: muscle spasm) hydroxyzine pamoate 25 mg capsule 25 mg PO Q6H PRN (Reason: anxiety) polyethylene glycol 3350 [Miralax] 17 gram/dose powder 17 g PO DAILY PRN (Reason: Constipation) carvedilol [Coreg] 25 mg tablet 25 mg PO BID Rx Instructions: must administer with a meal/food multivitamin Tablet 1 tab PO DAILY lisinopril 40 mg tablet 40 mg PO DAILY gabapentin 800 mg tablet 800 mg PO TID aspirin [Adult Low Dose Aspirin] 81 mg tablet,delayed release (DR/EC) 81 mg PO DAILY escitalopram oxalate [Lexapro] 20 mg tablet 20 mg PO DAILY mirtazapine 45 mg tablet 45 mg PO BEDTIME atorvastatin [Lipitor] 80 mg tablet 80 mg PO BEDTIME Tresiba FlexTouch U-100 100 unit/mL (3 mL) insulin pen 10 unit subcut DAILY (DME) FreeStyle Lite Strips Strip See Rx Instructions Not Applicable QID Qty: 10 Rx Instructions: As directed Asmanex HFA 100 mcg/actuation HFA aerosol inhaler 2 puff inhalation BID oxycodone 5 mg tablet 5 mg PO 5XD PRN (Reason: Severe Pain (Scale Score 7-10)) omeprazole 20 mg capsule,delayed release(DR/EC) 40 mg PO DAILY PRN (Reason: Heartburn) spironolacton-hydrochlorothiaz 25-25 mg tablet 2 tab PO DAILY Qty: 90 0RF Interventions: ED Discharge Assessment Last Done: 08/30/23 21:10 Discharge Date/Time: 08/30/23 21:10 Print Language: Japanese
--- NOTE | 2023-08-30 20:00 | ECG_ITS ---
Test Reason : HTN Blood Pressure : / mmHG Vent. Rate : 078 BPM Atrial Rate : 078 BPM P-R Int : 128 ms QRS Dur : 090 ms QT Int : 404 ms P-R-T Axes : 040 -06 188 degrees QTc Int : 460 ms Normal sinus rhythm Moderate voltage criteria for LVH, may be normal variant ( R in aVL , [place] product ) ST & T wave abnormality, consider lateral ischemia Abnormal ECG When compared with ECG of 14-AUG-2023 00:54, No significant change was found Referred By: Antonio Braun Electronically Signed By:CAROLYNE ECHOLS MD
[2023-08-30 20:03] VITALS: BMI 27.5
[2023-08-30] MEDS: oxyCODONE HCl Immed Release 5 MG TABLET 10 MG PO (20:17)
[2023-08-30 20:23] VITALS: BP 159/60; PULSE 75; RESP 16; O2SAT 100
[2023-08-30] MEDS: ondansetron HCL 4 MG/2 ML VIAL IVPUSH (20:30)
[2023-08-30 21:10] VITALS: BP 152/60; PULSE 65; RESP 16; TEMP 36.7; O2SAT 98
[2023-08-30 21:21] LABS: Glucose, Whole Blood 264 mg/dL (60-115)
== END 2023-08-30 21:10 | disposition home or self-care (01) ==
PROVIDERS: Emergency Provider Internal Medicine; PCP Family Medicine
DX: G89.4 Chronic pain syndrome (principal); R51.9 Headache, unspecified; I10 Essential (primary) hypertension; E11.9 Type 2 diabetes mellitus without complications; E78.5 Hyperlipidemia, unspecified; F17.210 Nicotine dependence, cigarettes, uncomplicated; Z79.891 Long term (current) use of opiate analgesic; Z79.84 Long term (current) use of oral hypoglycemic drugs; Z79.82 Long term (current) use of aspirin; Z79.02 Long term (current) use of antithrombotics/antiplatelets; Z79.899 Other long term (current) drug therapy
CPT/HCPCS: 82947; 93005; 96374; 99284; J2405

== ENCOUNTER → 2023-08-30 20:00 | Outpatient (BNV) | payer MEDICAID, SELFPAY | PROVIDERS: Emergency Provider Internal Medicine; PCP Family Medicine; Visit Provider Internal Medicine Cardiovascular Disease | DX: R94.31 Abnormal electrocardiogram [ECG] [EKG] (principal) | CPT/HCPCS: 93010 ==

== ENCOUNTER 2023-09-10 19:37 | Inpatient (IN) | payer MEDICAID, SELFPAY ==
--- NOTE | 2023-09-10 | ECG_ITS ---
Test Reason : HYPERTENSION Blood Pressure : / mmHG Vent. Rate : 099 BPM Atrial Rate : 099 BPM P-R Int : 128 ms QRS Dur : 078 ms QT Int : 348 ms P-R-T Axes : 036 004 157 degrees QTc Int : 446 ms Normal sinus rhythm Left ventricular hypertrophy with repolarization abnormality ( R in aVL ) Abnormal ECG When compared with ECG of 30-AUG-2023 20:01, ST now depressed in Anterior leads Referred By: Generic ED Physician Electronically Signed By:Ghanshyam Daniel
--- NOTE | 2023-09-10 | ECG_ITS ---
Test Reason : REPEAT Blood Pressure : / mmHG Vent. Rate : 080 BPM Atrial Rate : 080 BPM P-R Int : 130 ms QRS Dur : 096 ms QT Int : 400 ms P-R-T Axes : 048 001 189 degrees QTc Int : 461 ms Normal sinus rhythm Incomplete right bundle branch block Minimal voltage criteria for LVH, may be normal variant ( [place] product ) Nonspecific ST and T wave abnormality Abnormal ECG When compared with ECG of 10-SEP-2023 19:57, ST no longer depressed in Anterior leads Referred By: Nguyen Carrera Electronically Signed By:Ghanshyam Daniel
--- NOTE | ~2023-09-10 | CT_ITS ---
EXAMINATION: CT HEAD WITHOUT CONTRAST CLINICAL INFORMATION: Severe hypertension and headache. COMPARISON: CT head dated 08/14/2023. TECHNIQUE: Contiguous axial imaging was performed from the skull base to vertex without intravenous administration of contrast. This CT examination was performed using dose optimization techniques as appropriate, variously including the following: *Automated exposure control *Adjustment of mA and/or kV according to patient size (this includes techniques or standardized protocols for targeted exams where dose is matched to indication/reason for exam; i.e. extremities or head) *Use of iterative reconstruction technique DLP: 538 mGy-cm FINDINGS: There is no acute intracranial hemorrhage or evidence of territorial infarction. No abnormal mass effect or midline shift is seen. Kelly to white matter differentiation is well preserved. There is no abnormal attenuation within the brain parenchyma. The ventricles are normal in size. No extra-axial fluid collections are identified. The calvarium and scalp soft tissues are normal. The middle ear cavity and mastoid air cells are clear. There is mild right ethmoid sinusitis. CT/CT head/brain wo IV con IMPRESSION: 1. No acute intracranial pathology. 2. There is mild right ethmoid sinusitis.
[2023-09-10 19:42] VITALS: BP 222/98; PULSE 98; RESP 16; TEMP 36.7; O2SAT 98; BMI 27.7
--- NOTE | 2023-09-10 20:08 | PC.NURSE ---
park interpreter at bedside. pt a&o4, respirations even and unlabored. pt reporting checking blood pressure at home and reports her blood pressure was very high , upon arrival to room, pt hypertensive. pt reports headache and nausea. denies chest pain and shortness of breath. pt reports taking medications prior to arrival. pt normal sinus on tele 80-8bpm. 20G placed in right ac, labs obtained and sent.
[2023-09-10 20:09] LABS: MANUAL DIFF FLAG NO
[2023-09-10 20:10] LABS: Basophils Percent Auto 0.5 % (0-2); Eosinophils Absolute Auto 0.2 X10*3/uL (0.0-0.4); Eosinophils Percent Auto 3.1 % (0-4); Hematocrit 34.4 % (37.0-47.0); Hemoglobin 11.7 g/dl (12.0-16.0); Imm Gran Abs Auto 0.02 X10*3/uL (0.00-0.03); Imm Gran Pct Auto 0.3 % (0.0-0.4); Lymphocytes Absolute Auto 1.8 X10*3/uL (1.2-4.9); Lymphocytes Percent Auto 28.6 % (20-40); Mean Corpuscular Hemoglobin 30.6 pg (27.0-33.0); Mean Corpuscular Volume 90.1 fL (80.0-98.0); Mean Platelet Volume 9.1 fL (9.4-12.3); Monocytes Absolute Auto 0.4 X10*3/uL (0.1-1.2); Monocytes Percent Auto 6.8 % (2-11); Neutrophils Absolute Auto 3.9 x10*3/uL (2.0-8.3); Neutrophils Percent Auto 60.7 % (45-73); Platelet Count 282 X10*3/uL (160-400); Red Blood Count 3.82 X10*6/uL (4.20-5.50); Red Cell Distribution Width 13.4 % (11.0-16.0); White Blood Count 6.4 X10*3/uL (4.8-10.8)
[2023-09-10 20:25] LABS: Alanine Aminotransferase 6 U/L (0-31); Albumin Level 3.7 g/dL (3.5-5.0); Alkaline Phosphatase 79 U/L (39-117); Anion Gap 13 (12-20); Aspartate Amino Transferase 11 U/L (5-31); Bilirubin Total 0.3 mg/dL (0.0-1.0); Blood Urea Nitrogen 14 mg/dL (9-16); Calcium 9.7 mg/dL (8.4-10.2); Carbon Dioxide 27 mmol/L (22-29); Chloride 106 mmol/L (96-108); Creatinine Clr Calc Pharmacy 47.1; Estimated Glomerular Filt Rate 53; Glucose Random 248 mg/dL (60-115); Potassium 4.6 mmol/L (3.3-5.1); Sodium 141 mmol/L (135-145); Total Protein 6.4 g/dL (6.5-8.0)
[2023-09-10 20:32] LABS: Troponin-I High Sensitivity 4.9 ng/L (<3.5-17.0)
--- NOTE | 2023-09-10 20:57 | ED_ITS ---
HPI - Dizziness General Chief Complaint: Dizziness Stated Complaint: hypertension Time Seen by Provider: 09/10/23 20:02 Source: patient Mode of arrival: ambulatory Limitations: no limitations History of Present Illness ED Provider: Dr. Nguyen Carrera HPI Narrative: Patient comes to the emergency room complaining of lightheadedness, severe headache and high blood pressure. Patient has been evaluated multiple times for similar symptoms here in the ED. patient states that she takes her medication every day. However, in previous notes from patient's doctor appointments, patient's daughter has stated that the patient is not compliant with her medication. Patient states that approximately 5 hours ago she took all of her home medications. Approximately 4 hours ago, patient started feeling lightheaded, patient's blood pressure was above 200 systolic and above 100 diastolic. Patient denies chest pain or chest pressure, no syncopal episodes. Related Data Home Medications ?Medication ?Instructions ?Recorded ?Confirmed metformin 1,000 mg tablet 1,000 mg PO BID 12/22/19 08/21/23 aspirin 81 mg tablet,delayed 81 mg PO DAILY 01/02/20 08/21/23 release (Adult Low Dose Aspirin) atorvastatin 80 mg tablet (Lipitor) 80 mg PO BEDTIME 01/02/20 08/21/23 carvedilol 25 mg tablet (Coreg) 25 mg PO BID 01/02/20 08/21/23 escitalopram oxalate 20 mg tablet 20 mg PO DAILY 01/02/20 08/21/23 (Lexapro) gabapentin 800 mg tablet 800 mg PO TID 01/02/20 08/21/23 lisinopril 40 mg tablet 40 mg PO DAILY 01/02/20 08/21/23 mirtazapine 45 mg tablet 45 mg PO BEDTIME 01/02/20 08/21/23 multivitamin 1 tab PO DAILY 01/02/20 08/21/23 acetaminophen 650 mg 650 mg PO Q8H PRN Pain (Scale 01/16/21 08/21/23 tablet,extended release (Arthritis Score 1-3) Pain Relief (acetaminophen) ER) amlodipine 10 mg tablet 10 mg PO BEDTIME 01/16/21 08/21/23 fluticasone propionate 110 2 puff inhalation BID PRN 01/16/21 08/21/23 mcg/actuation HFA aerosol inhaler Shortness Of Breath Or Wheezing (Flovent HFA) fluticasone propionate 50 2 spray intranasal DAILY PRN 01/16/21 08/21/23 mcg/actuation nasal Allergy Symptoms spray,suspension blood sugar diagnostic (FreeStyle #10 ea 03/30/21 08/21/23 Lite Strips) insulin degludec 100 unit/mL (3 10 unit subcut DAILY 10/03/22 08/21/23 mL) subcutaneous pen (Tresiba FlexTouch U-100 insulin) amitriptyline 50 mg tablet 50 mg PO BEDTIME 11/07/22 08/21/23 mometasone 100 mcg/actuation HFA 2 puff inhalation BID 06/12/23 08/21/23 aerosol inhaler (Asmanex HFA) oxycodone 5 mg tablet 5 mg PO 5XD PRN Severe Pain (Scale 06/12/23 08/21/23 Score 7-10) omeprazole 20 mg capsule,delayed 40 mg PO DAILY PRN Heartburn 07/19/23 08/21/23 release baclofen 10 mg tablet 10 mg PO TID PRN muscle spasm 07/28/23 08/21/23 hydroxyzine pamoate 25 mg capsule 25 mg PO Q6H PRN anxiety 07/28/23 08/21/23 polyethylene glycol 3350 17 17 g PO DAILY PRN Constipation 07/28/23 08/21/23 gram/dose oral powder (Miralax) sennosides 8.6 mg tablet (senna) 17.2 mg PO BEDTIME PRN constipation 07/28/23 08/21/23 Previous Rx's ?Medication ?Instructions ?Recorded ferrous sulfate 325 mg (65 mg 325 mg PO BID #60 tabs 05/24/20 iron) tablet clopidogrel 75 mg tablet (Plavix) 75 mg PO DAILY #30 tabs 12/02/20 pioglitazone 15 mg tablet 15 mg PO DAILY 30 days #30 tabs 12/02/20 lancets 33 gauge (TRUEplus Lancets) #100 ea 07/26/21 docusate sodium 100 mg capsule 100 mg PO BID PRN Constipation #14 04/17/22 (Colace) caps spironolactone 25 2 tab PO DAILY #90 tabs 08/21/23 mg-hydrochlorothiazide 25 mg tablet Allergies Allergy/AdvReac Type Severity Reaction Status Date / Time latex [LATEX] Allergy Severe RASH Verified 09/10/23 19:46 naproxen [From NAPROSYN] AdvReac Intermediate TACHYCARDIA Verified 09/10/23 19:46 Review of Systems 2 Review of Systems: Constitutional : No Weight loss, No Fever, No Chills, No Night Sweats, No Fatigue, No Malaise ENT/Mouth : No Hearing loss, No Ear Pain, No Nasal Congestion, No Sinus Pain, No Hoarseness, No sore throat, No Rhinorrhea, No Swallowing Difficulty Eyes: No Eye Pain, No Swelling, No Redness, No Foreign Body, No Discharge, No Vision Changes Cardiovascular : No Chest Pain, No SOB, No Dyspnea on Exertion, No Orthopnea, No Edema, No Palpitations, complaining of severe hypotension, over 220 systolic Respiratory : No Cough, No Sputum, No Wheezing, No Smoke Exposure, No Dyspnea Gastrointestinal : No Nausea, No Vomiting, No Diarrhea, No Constipation, No abdominal Pain, No Hematochezia, No Melena Genitourinary : no irregular bleeding, No Dysuria, No Urinary Frequency, No Hematuria, No Urinary Incontinence, No Urgency, No Flank Pain, No Urinary Flow Changes, No Hesitancy Musculoskeletal : No joint pain, No Myalgias, No Joint Swelling Skin : No Skin Lesions, No rash Neuro : No Weakness, No Numbness, No Paresthesias, No Loss of Consciousness complaining of lightheadedness and severe headache Psych : No Anxiety/Panic, No Depression, No SI/HI/AH/VH, No Social Issues, Heme/Lymph: No Bruising, No Bleeding,No Lymphadenopathy Endocrine : No Polyuria, No Polydipsia, No Temperature Intolerance [facility] Past Medical History Medical History Mild aortic valve stenosis LORE (obstructive sleep apnea) Chronic low back pain Lumbar spinal stenosis HTN (hypertension) Vitamin D deficiency HLD (hyperlipidemia) T2DM (type 2 diabetes mellitus) H. pylori infection CAD (coronary artery disease) Cyst (solitary) of breast Kidney calculi Arthritis Asthma HTN (hypertension) Diabetes Surgical History History of right-sided carotid endarterectomy (~11/2022) S/P aortogram History of esophagogastroduodenoscopy (EGD) Hx of colonoscopy History of breast surgery History of cardiac cath Family History Family History Mother Diabetes Liver cancer Social History Social History Household Members: Family and Friend(s) Household Members Other:: friend and adult son Housing: Apartment Are you a primary physician locums urgent care to a significant other at home: No Do you presently have visiting nurse or other home services: No Alcohol intake: never Comment: pt sleeping Patient Tobacco Use Status: Current everyday Tobacco user Tobacco use type: Cigarette Cigarette Packs Per Day: 1 Cigarettes Per Day: 3 Years Smoked: 40 Smoked in Last 30 Days: No e-Cigarette/Vaping Use: Never Used Second Hand Smoke Exposure: No Use of substances other than those prescribed or required for medical reasons: No Advance Directives: No Advance Directives Information Provided: No Patient : No service: No Current occupational status: unemployed and disabled Physical Exam 2 Vital Signs: Vital Signs: Last Vital Signs Temp 98.0 F 09/10/23 21:49 Pulse 78 09/10/23 21:49 Resp 13 09/10/23 21:49 BP 193/73 H 09/10/23 21:52 Pulse Ox 95 09/10/23 21:49 O2 Del Method Room Air 09/10/23 21:49 BMI result Body Mass Index 27.7 Const: Other: Appearance: Alert. Oriented X3. Seems uncomfortable Eyes: Pupils equal, round and reactive to light. ENT: Pharynx normal. Neck: Normal inspection. Neck supple. No lymph nodes noted. No crepitus CVS: Normal heart rate and rhythm. Pulses normal. Normal S1 and S2 Respiratory: No respiratory distress. Breath sounds normal. No Wheezing. No rales Abdomen: Soft and nontender. No rigidity. No distention. Skin: Skin warm and dry. Normal skin color. Normal skin turgor. Extremities: No lower extremity edema. No Lacerations. No Rash Neuro: Oriented X 3. No motor deficit. No sensory deficit. Moving all extremities. No slurred speech. CN 2 through 12 grossly intact Psych: calm, cooperative Course Course Course Narrative: = all of patient's labs pending -patient's initial blood pressure 222/98, patient having severe high blood pressure along with severe headache. Patient has been seen multiple times for this same complaint. -head CT pending, patient receiving IV labetalol 20 mg And 4 mg of morphine for headache Medications Administered Discontinued Medications Generic Name Dose Route Start Last Admin Trade Name Nabila PRN Reason Stop Dose Admin Hydralazine HCl 20 mg 09/10/23 21:38 09/10/23 21:52 Hydralazine Hcl 20 Mg/Ml Vial IVPUSH 09/10/23 21:39 20 mg ONCE ONE Administration Protocol Labetalol HCl 20 mg 09/10/23 20:53 09/10/23 20:58 Labetalol Hcl 100 Mg/20 Ml Vial IVPUSH 09/10/23 20:54 20 mg ONCE ONE Administration Morphine Sulfate 4 mg 09/10/23 21:01 09/10/23 21:14 Morphine Sulfate 4 Mg/Ml Cartridge IVPUSH 09/10/23 21:02 4 mg ONCE ONE Administration Protocol Medical Decision Making Medical Decision Making MDM Narrative: -my interpretation of labs, no significant abnormality in hematology and chemistry, troponin negative -patient was given 20 mg of IV labetalol, blood pressure dropped to 190. Patient still having headache. Patient will receive a dose of IV hydralazine -my interpretation of head CT: No intracranial bleed After morphine, patient's headache did not improve, patient received 1 dose of IV Dilaudid -patient's blood pressure decreased to the 150s systolic, slowly increasing again now in the 170s. -patient continues having headache. -patient is very adamant that she is compliant with her blood pressure medications -I reviewed patient's chart, on August 28, she had an angiogram, patient states that she had some kind of treatment done afterwards but there are no records of treatment after the angiogram - -my interpretation of EKG 1., [address] segment depressions in leads II, V4 V5 V6, heart rate 99, no T-wave inversions, QTC 446. -after blood pressure improved, the ST depressions in lead II remained the same, improved in V4 V5 V6 -patient denies chest pain or pressure. Troponin negative -patient continues complaining of severe headache despite morphine and Dilaudid. I discussed the patient with Dr. Jj, patient being admitted. It is possible that patient may need a Cardiology and Nephrology consult to help control her hypertension Differential Diagnosis Differential Diagnoses: The differential diagnosis associated with the presentation includes (Hypertensive urgency, hypertensive emergency, intracranial bleed, renal artery stenosis) Admission/Observation Consideration of admission/observation: Escalation of care including admission/observation considered Consult Healthcare Provider Management of the patient was discussed with: Hospitalist Lab Data MDM Lab Attestation statement: I reviewed the patient's lab results. 09/10/23 20:04 09/10/23 20:04 Labs: Lab Results 09/10/23 Range/Units 20:04 WBC 6.4 (4.8-10.8) X10*3/uL RBC 3.82 L (4.20-5.50) X10*6/uL Hgb 11.7 L (12.0-16.0) g/dl Hct 34.4 L (37.0-47.0) % MCV 90.1 (80.0-98.0) fL MCH 30.6 (27.0-33.0) pg MCHC 34.0 (31.0-35.0) g/dl RDW 13.4 (11.0-16.0) % Plt Count 282 (160-400) X10*3/uL MPV 9.1 L (9.4-12.3) fL Immature Gran % (Auto) 0.3 (0.0-0.4) % Neut % (Auto) 60.7 (45-73) % Lymph % (Auto) 28.6 (20-40) % [place] % (Auto) 6.8 (2-11) % Eos % (Auto) 3.1 (0-4) % Baso % (Auto) 0.5 (0-2) % Lymph # (Auto) 1.8 (1.2-4.9) X10*3/uL [place] # (Auto) 0.4 (0.1-1.2) X10*3/uL Eos # (Auto) 0.2 (0.0-0.4) X10*3/uL Baso # (Auto) 0.0 (0.0-0.2) X10*3/uL Abs Immat Gran (auto) 0.02 (0.00-0.03) X10*3/uL Absolute Neuts (auto) 3.9 (2.0-8.3) x10*3/uL Absolute Nucleated RBC 0.000 (0.0-0.012) X10*3/uL Nucleated RBC % (auto) 0.0 (0.0-0.2) /100WBC Sodium 141 (135-145) mmol/L Potassium 4.6 (3.3-5.1) mmol/L Chloride 106 (96-108) mmol/L Carbon Dioxide 27 (22-29) mmol/L Anion Gap 13 (12-20) BUN 14 (9-16) mg/dL Creatinine 1.05 (0.5-1.4) mg/dL Estim Creat Clear Calc 47.1 Estimated GFR 53 Random Glucose 248 H (60-115) mg/dL Calcium 9.7 (8.4-10.2) mg/dL Total Bilirubin 0.3 (0.0-1.0) mg/dL AST 11 (5-31) U/L ALT 6 (0-31) U/L Alkaline Phosphatase 79 (39-117) U/L Troponin I High Sens 4.9 D (<3.5-17.0) ng/L Total Protein 6.4 L (6.5-8.0) g/dL Albumin 3.7 (3.5-5.0) g/dL Independent Interpretation I performed an independent interpretation of an: CT Scan Radiology Impression Discussion of test interpretation with radiology: I have reviewed the radiologist's reading. Radiologist Impression: FINDINGS: There is no acute intracranial hemorrhage or evidence of territorial infarction. No abnormal mass effect or midline shift is seen. Kelly to white matter differentiation is well preserved. There is no abnormal attenuation within the brain parenchyma. The ventricles are normal in size. No extra-axial fluid collections are identified. The calvarium and scalp soft tissues are normal. The middle ear cavity and mastoid air cells are clear. There is mild right ethmoid sinusitis. CT/CT head/brain wo IV con IMPRESSION: 1. No acute intracranial pathology. 2. There is mild right ethmoid sinusitis. Critical Care Time Critical Care Time Critical Care Time: Yes Total Critical Care Time: 75 Attestation: I have personally provided critical care time. Time includes review of lab data, radiology results, discussion with consultants, and monitoring for potential decompensation. Intervention performed as documented. Discharge Plan Discharge Clinical Impression: Hypertensive emergency, Headache Patient Disposition: Admitted As Inpatient Prescriptions: No Action pioglitazone 15 mg tablet 15 mg PO DAILY 30 Days Qty: 30 11RF (DME) lancets [TRUEplus Lancets] 33 gauge misc See Rx Instructions .Route Qty: 100 11RF Rx Instructions: 4x daily metformin 1,000 mg Tablet 1,000 mg PO BID ferrous sulfate 325 mg (65 mg iron) tablet 325 mg PO BID Qty: 60 0RF clopidogrel [Plavix] 75 mg tablet 75 mg PO DAILY Qty: 30 5RF docusate sodium [Colace] 100 mg capsule 100 mg PO BID PRN (Reason: Constipation) Qty: 14 0RF amlodipine 10 mg Tablet 10 mg PO BEDTIME fluticasone propionate 50 mcg/actuation [place],Suspension 2 spray INTRANASAL DAILY PRN (Reason: Allergy Symptoms) acetaminophen [Arthritis Pain Relief (acetam)] 650 mg Tablet Extended Release 650 mg PO Q8H PRN (Reason: Pain (Scale Score 1-3)) fluticasone propionate [Flovent HFA] 110 mcg/actuation Hfa Aerosol Inhaler 2 puff INHALATION BID PRN (Reason: Shortness Of Breath Or Wheezing) amitriptyline 50 mg tablet 50 mg PO BEDTIME sennosides [senna] 8.6 mg tablet 17.2 mg PO BEDTIME PRN (Reason: constipation) baclofen 10 mg tablet 10 mg PO TID PRN (Reason: muscle spasm) hydroxyzine pamoate 25 mg capsule 25 mg PO Q6H PRN (Reason: anxiety) polyethylene glycol 3350 [Miralax] 17 gram/dose powder 17 g PO DAILY PRN (Reason: Constipation) carvedilol [Coreg] 25 mg tablet 25 mg PO BID Rx Instructions: must administer with a meal/food multivitamin Tablet 1 tab PO DAILY lisinopril 40 mg tablet 40 mg PO DAILY gabapentin 800 mg tablet 800 mg PO TID aspirin [Adult Low Dose Aspirin] 81 mg tablet,delayed release (DR/EC) 81 mg PO DAILY escitalopram oxalate [Lexapro] 20 mg tablet 20 mg PO DAILY mirtazapine 45 mg tablet 45 mg PO BEDTIME atorvastatin [Lipitor] 80 mg tablet 80 mg PO BEDTIME Tresiba FlexTouch U-100 100 unit/mL (3 mL) insulin pen 10 unit subcut DAILY (DME) FreeStyle Lite Strips Strip See Rx Instructions Not Applicable QID Qty: 10 Rx Instructions: As directed Asmanex HFA 100 mcg/actuation HFA aerosol inhaler 2 puff inhalation BID oxycodone 5 mg tablet 5 mg PO 5XD PRN (Reason: Severe Pain (Scale Score 7-10)) omeprazole 20 mg capsule,delayed release(DR/EC) 40 mg PO DAILY PRN (Reason: Heartburn) spironolacton-hydrochlorothiaz 25-25 mg tablet 2 tab PO DAILY Qty: 90 0RF Print Language: Lithuanian
[2023-09-10 20:58] VITALS: BP 222/93; PULSE 95
[2023-09-10] MEDS: Labetalol HCL 100 MG/20 ML VIAL 20 MG IVPUSH (20:58)
[2023-09-10 21:14] VITALS: BP 188/79; PULSE 84
[2023-09-10] MEDS: Morphine Sulfate 4 MG/ML CARTRIDGE IVPUSH (21:14)
[2023-09-10 21:49] VITALS: BP 193/73; PULSE 78; RESP 13; TEMP 36.7; O2SAT 95
[2023-09-10 21:52] VITALS: BP 193/73
[2023-09-10] MEDS: hydrALAZINE HCl 20 MG/ML VIAL IVPUSH (21:52)
[2023-09-10 23:44] VITALS: BP 174/73; PULSE 79; RESP 16; O2SAT 100
[2023-09-11] VITALS (7 sets, daily range): BP systolic 140–191; BP diastolic 60–72; PULSE 76–82; RESP 15–17; TEMP 36.4–37.2; O2SAT 95–100
[2023-09-11] MEDS: HYDROmorphone HCl 1 MG/ML SYRINGE IVPUSH (00:26)
--- NOTE | 2023-09-11 00:36 | P.HPHOSP_ITS ---
History of Present Illness Date of Service: 09/11/23 Attending physician on admission: Bruna Hernandez Chief Complaint: High blood pressure Rocío Schmid is a 62 years old woman with past medical history significant for resistant hypertension, ongoing tobacco smoking, severe vascular disease s/p right endarterectomy/left fem-pop bypass/left angioplasty profundus femoris and popliteal inclusive list of distal stenosis/right common iliac stent, type 2 diabetes mellitus, chronic back pain secondary to lumbar spinal stenosis/lumbosacral spondylolysis, CAD, and hyperlipidemia presents to the emergency department complaining of frontal headache that started yesterday at 4 PM associated with nausea and blurry vision. Also, her blood pressure has been quite elevated. Denied events of vomiting, dizziness or loss of consciousness. Denied acute cardiopulmonary, gastrointestinal or genitourinary symptoms. She said that she takes the medications for high blood pressure and stated been taking them as prescribed without missing any dose. She does not recall the name of any of her medications, except for oxycodone. Patient said that she had a procedure done on August 28 but she does not know the specific procedure. According to our records the patient underwent an angiogram that day. In the ED, she was found to have elevated blood pressure (max 222/98, last 175/64). Blood workup including CMP and CBC are unremarkable except for elevated blood glucose, 248. Troponin is 4.9. Head CT scan showed no acute intracranial pathology. ECG showed ST depression in lateral leads (unchanged from prior), incomplete right bundle branch block. ED tx: Labetalol 20 mg IV, morphine 4 mg IV, hydralazine 20 mg IV, Dilaudid 1 mg IV Review of Systems 2 Review of Systems: All 12 systems were reviewed and normal except as noted in HPI. [facility] Medical History Mild aortic valve stenosis LORE (obstructive sleep apnea) Chronic low back pain Lumbar spinal stenosis HTN (hypertension) Vitamin D deficiency HLD (hyperlipidemia) T2DM (type 2 diabetes mellitus) H. pylori infection CAD (coronary artery disease) Cyst (solitary) of breast Kidney calculi Arthritis Asthma HTN (hypertension) Diabetes Family History Mother Diabetes Liver cancer Surgical History History of right-sided carotid endarterectomy (~11/2022) S/P aortogram History of esophagogastroduodenoscopy (EGD) Hx of colonoscopy History of breast surgery History of cardiac cath Social History Household Members: Family and Friend(s) Household Members Other:: friend and adult son Housing: Apartment Are you a primary child care nurse to a significant other at home: No Do you presently have visiting nurse or other home services: No Alcohol intake: never Comment: pt sleeping Patient Tobacco Use Status: Current everyday Tobacco user Tobacco use type: Cigarette Cigarette Packs Per Day: 1 Cigarettes Per Day: 3 Years Smoked: 40 e-Cigarette/Vaping Use: Never Used Second Hand Smoke Exposure: No service: No Current occupational status: unemployed and disabled Meds Allergies Allergy/AdvReac Type Severity Reaction Status Date / Time latex [LATEX] Allergy Severe RASH Verified 09/10/23 19:46 naproxen [From NAPROSYN] AdvReac Intermediate TACHYCARDIA Verified 09/10/23 19:46 Active Medications: Current Medications Amlodipine Besylate (Amlodipine Besylate 10 Mg Tablet) 10 mg PO ONCE STA; Protocol Stop: 09/11/23 00:33 Diphenhydramine HCl (Diphenhydramine Hcl 50 Mg/Ml Vial) 50 mg IVPUSH ONCE STA Stop: 09/11/23 00:32 Acetaminophen (Ofirmev) 1,000 mg in 100 mls @ 400 mls/hr IV ONCE ONE Stop: 09/11/23 00:45 Metoclopramide HCl (Metoclopramide Hcl 10 Mg/2 Ml Vial) 10 mg IVPUSH ONCE STA Stop: 09/11/23 00:32 Sodium Chloride (0.9 % Sodium Chloride Flush 3 Ml Syringe) 3 ml IVFLUSH [facility] Home Medications ?Medication ?Instructions ?Recorded ?Confirmed ?Last Taken ?Type metformin 1,000 mg tablet 1,000 mg PO BID 12/22/19 08/21/23 11/27/22 History aspirin 81 mg tablet,delayed 81 mg PO DAILY 01/02/20 08/21/23 11/27/22 History release (Adult Low Dose Aspirin) atorvastatin 80 mg tablet (Lipitor) 80 mg PO BEDTIME 1108/21/23 11/27/22 History carvedilol 25 mg tablet (Coreg) 25 mg PO BID 01/02/20 08/21/23 11/28/22 History escitalopram oxalate 20 mg tablet 20 mg PO DAILY 01/02/20 08/21/23 11/28/22 History (Lexapro) gabapentin 800 mg tablet 800 mg PO TID 01/02/20 08/21/23 11/28/22 History lisinopril 40 mg tablet 40 mg PO DAILY 01/02/20 08/21/23 11/27/22 History mirtazapine 45 mg tablet 45 mg PO BEDTIME 01/02/20 08/21/23 11/27/22 History multivitamin 1 tab PO DAILY 01/02/20 08/21/23 11/27/22 History acetaminophen 650 mg 650 mg PO Q8H PRN Pain (Scale 01/16/21 08/21/23 Unknown History tablet,extended release (Arthritis Score 1-3) Pain Relief (acetaminophen) ER) amlodipine 10 mg tablet 10 mg PO BEDTIME 01/16/21 08/21/23 11/27/22 History fluticasone propionate 110 2 puff inhalation BID PRN 01/16/21 08/21/23 11/27/22 History mcg/actuation HFA aerosol inhaler Shortness Of Breath Or Wheezing (Flovent HFA) fluticasone propionate 50 2 spray intranasal DAILY PRN 01/16/21 08/21/23 11/27/22 History mcg/actuation nasal Allergy Symptoms spray,suspension blood sugar diagnostic (FreeStyle #10 ea 03/30/21 08/21/23 Unknown History Lite Strips) insulin degludec 100 unit/mL (3 10 unit subcut DAILY 10/03/22 08/21/23 11/27/22 History mL) subcutaneous pen (Tresiba FlexTouch U-100 insulin) amitriptyline 50 mg tablet 50 mg PO BEDTIME 11/07/22 08/21/23 Unknown History mometasone 100 mcg/actuation HFA 2 puff inhalation BID 06/12/23 08/21/23 Unknown History aerosol inhaler (Asmanex HFA) oxycodone 5 mg tablet 5 mg PO 5XD PRN Severe Pain (Scale 06/12/23 08/21/23 Unknown History Score 7-10) omeprazole 20 mg capsule,delayed 40 mg PO DAILY PRN Heartburn 07/19/23 08/21/23 Unknown History release baclofen 10 mg tablet 10 mg PO TID PRN muscle spasm 07/28/23 08/21/23 Unknown History hydroxyzine pamoate 25 mg capsule 25 mg PO Q6H PRN anxiety 07/28/23 08/21/23 Unknown History polyethylene glycol 3350 17 17 g PO DAILY PRN Constipation 07/28/23 08/21/23 Unknown History gram/dose oral powder (Miralax) sennosides 8.6 mg tablet (senna) 17.2 mg PO BEDTIME PRN constipation 07/28/23 08/21/23 Unknown History Physical Exam 2 Vital Signs and Narrative: Vital Signs: Last Vital Signs Temp 97.8 F 09/11/23 00:24 Pulse 78 09/11/23 00:24 Resp 15 09/11/23 00:24 BP 175/64 H 09/11/23 00:24 Pulse Ox 100 09/11/23 00:24 O2 Del Method Room Air 09/11/23 00:24 BMI result Body Mass Index 27.7 Constitutional - Awake and Alert, No apparent distress. Loss on consult due to headache. HEENT - PERRLA, EOMI Heart - RRR, No murmur. Lungs - Normal lung expansion, Normal respiratory effort, No respiratory distress, CTA bilaterally Abdomen- NT / ND; +BS; No rebound or guarding Extremities - No calf tenderness bilaterally, no swelling Musculoskeletal - Normal inspection, normal ROM Skin - Warm/Dry Neurological - Alert & oriented x3. No focal weakness. Normal speech. Psychological - Appropriate affect Results Labs 09/10/23 20:04 09/10/23 20:04 Labs: Laboratory Results - last 24 hr 09/10/23 20:04 MCV 90.1 MCH 30.6 MCHC 34.0 RDW 13.4 Plt Count 282 MPV 9.1 L Immature Gran % (Auto) 0.3 Neut % (Auto) 60.7 Lymph % (Auto) 28.6 [place] % (Auto) 6.8 Eos % (Auto) 3.1 Baso % (Auto) 0.5 Lymph # (Auto) 1.8 [place] # (Auto) 0.4 Eos # (Auto) 0.2 Baso # (Auto) 0.0 Abs Immat Gran (auto) 0.02 Absolute Neuts (auto) 3.9 Absolute Nucleated RBC 0.000 Nucleated RBC % (auto) 0.0 Anion Gap 13 Estim Creat Clear Calc 47.1 Estimated GFR 53 Random Glucose 248 H Calcium 9.7 Total Bilirubin 0.3 AST 11 ALT 6 Alkaline Phosphatase 79 Troponin I High Sens 4.9 D Total Protein 6.4 L Albumin 3.7 Imaging Radiologist's Impressions: Impressions Head CT 09/10/23 21:19 IMPRESSION: 1. No acute intracranial pathology. 2. There is mild right ethmoid sinusitis. Assessment and Plan (1) Chronic low back pain: Qualifiers: Back pain laterality: unspecified Sciatica presence: unspecified whether sciatica present Qualified Code(s): M54.50 - Low back pain, unspecified; G89.29 - Other chronic pain Status: Acute (2) Headache: Qualifiers: Headache type: unspecified Headache chronicity pattern: acute headache Intractability: intractable Qualified Code(s): R51.9 - Headache, unspecified Status: Acute Plan Rocío Schmid is a 62 y/o woman with PMHx significant for resistant hypertension, severe vascular disease s/p right endarterectomy/left fem-pop bypass/left angioplasty profundus femoris/popliteal inclusive list of distal stenosis/right common iliac stent admitted with: * Uncontrolled hypertension, improving. Admit to hospitalist service. Labetalol 20 mg IV every 4 hours p.r.n. SBP >180. Continue home anti-HTN meds. Patient was advised to stop tobacco smoking addiction is might be contributing to her control hypertension and headache. She should also avoid any products with nicotine on it (patches, gums, etc). Low-salt diet. * Headache, secondary to above. Head CT scan negative. Reglan 10 mg IV, Benadryl 50 mg IV and Tylenol IV. Check CRP. * Severe peripheral vascular disease. Continue statin and Plavix. * Hyperlipidemia. Continue statin. * Tobacco dependence. Formal tobacco cessation education. Patient was advised to stop tobacco smoking this is likely contributing to her uncontrolled hypertension, headache and peripheral vascular disease. * Type 2 diabetes mellitus. BG before meals at bedtime. Insulin sliding scale. Diabetic diet. * History of medical noncompliance. * Chronic back pain, secondary to spinal stenosis (not surgical candidate) and lumbosacral spondylosis/spondylolisthesis. Continue oxycodone as needed. DVT prophylaxis: On Plavix Code status: Full Patient will need hospitalization for at least 2 midnights for uncontrolled hypertension treatment with IV antihypertensive agents and close monitoring of blood pressure. Quality Stroke Does the patient have a stroke diagnosis?: No VTE Prior VTE?: No VTE Risk Level:: Medical - moderate - high VTE Device Contraindication: Treatment Not Indicated VTE Drug Contraindication: Treatment Not Indicated
[2023-09-11 01:03] LABS: C Reactive Protein 0.28 mg/dL (< or = 0.50)
[2023-09-11] MEDS: amLODIPine Besylate 10 MG TABLET PO (01:09)
[2023-09-11] MEDS: Metoclopramide HCl 10 MG/2 ML VIAL IVPUSH (01:09)
[2023-09-11] MEDS: Acetaminophen 1,000 MG/100 ML PIGGYBACK 400 MG IV (01:09)
[2023-09-11] MEDS: diphenhydrAMINE HCL 50 MG/ML VIAL IVPUSH (01:09)
[2023-09-11 01:15] LABS: Glucose, Whole Blood 192 mg/dL (60-115)
[2023-09-11] MEDS: oxyCODONE HCl Immed Release 5 MG TABLET PO (04:19)
[2023-09-11 06:14] LABS: Hematocrit 31.8 % (37.0-47.0); Hemoglobin 10.6 g/dl (12.0-16.0); Mean Corpuscular HGB Conc 33.3 g/dl (31.0-35.0); Mean Corpuscular Hemoglobin 30.3 pg (27.0-33.0); Mean Corpuscular Volume 90.9 fL (80.0-98.0); Mean Platelet Volume 9.4 fL (9.4-12.3); Platelet Count 274 X10*3/uL (160-400); Red Cell Distribution Width 13.6 % (11.0-16.0); White Blood Count 6.8 X10*3/uL (4.8-10.8)
[2023-09-11 06:38] LABS: Anion Gap 11 (12-20); Blood Urea Nitrogen 13 mg/dL (9-16); Carbon Dioxide 27 mmol/L (22-29); Chloride 107 mmol/L (96-108); Creatinine Clr Calc Pharmacy 54.9; Estimated Glomerular Filt Rate > 60; Glucose Random 199 mg/dL (60-115); Potassium 3.9 mmol/L (3.3-5.1); Sodium 141 mmol/L (135-145)
[2023-09-11] MEDS: carvediloL 25 MG TABLET PO (07:13)
[2023-09-11] MEDS: Acetaminophen 325 MG TABLET 975 MG PO (07:13)
[2023-09-11] MEDS: 0.9 % Sodium Chloride Flush 3 ML SYRINGE IVFLUSH (07:18)
--- NOTE | 2023-09-11 09:35 | MHC.CM.PN ---
Addendum entered by Keara Lu RN 09/11/23 13:16: PATIENT MEDICALLY CLEARED FOR DC HOME W/ NEW [facility] FOR SN VIA PRIVATE TRANSPORT. 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 PATIENT LIVES IN AN APARTMENT W/ SON. FUNCTIONALLY INDEPENDENT. DENIES USE OF SERVICES OR DME. PCP VIOLETA PAT DO DP: GOAL IS HOME SELF CARE, DAUGHTER TO TRANSPORT. CM WILL CONTINUE TO FOLLOW.
[2023-09-11] MEDS: Nicotine 21 MG PATCH.TD24 TRANSDERMA (09:49)
--- NOTE | 2023-09-11 11:13 | PHA.MEDREC ---
Pharmacy Consult ? Medication Reconciliation Pharmacy has completed the medication reconciliation. Spoke to patient via short order fry cook and confirmed medication list. Patient said she no longer takes docusate, ferrous sulfate (makes her constipate), miralax, senna nor spironolactone-hctz. She said she takes gabapentin 800 mg bid, omeprazole 40 mg daily prn, escitalopram 20 mg in the evening and tresiba 10 units daily.
[2023-09-11 11:26] LABS: Glucose, Whole Blood 185 mg/dL (60-115)
[2023-09-11] MEDS: Insulin Lispro 100 UNIT/ML 3 ML VIAL SUBCUT (11:57)
--- NOTE | 2023-09-11 12:17 | W.MHC.F2F ---
Service Date Service Date: 09/11/23 Encounter Date of encounter: 09/11/23 Reasons for Services Signs and symptoms assessed: labile BP Reason for mcfp: medication management, medication treatment, teach disease management and other (BP monitoring) MD Overseeing Care: Radha Jamison Homebound: Leaving the home is medically contraindicated at this time without the asist of a device and/or another person due th the listed conditions above and below. Reason homebound: fall risk related to blood pressure changes Certification: Based on the above findings, I certify that this patient is confined to the home and needs intermittent mcfp care, physical therapy and/or speech therapy, or continues to need occupational therapy. The patient is under my care, and I have initiated the establishment of the plan of care. The patient will be followed by a physician who will periodically review the plan of care. Time Spent With Patient Time: Total time managing care of this patient today ____ minutes.
--- NOTE | 2023-09-11 12:22 | PM.DS ---
DS: Providers Provider Date of Service: 09/11/23 Date of admission: 09/11/23 00:33 Date of discharge: 09/11/23 Primary care physician: Radha Jamison DO DS: Diagnosis Discharge Diagnosis (1) Headache: Status: Acute (2) Hypertension, uncontrolled: Status: Acute (3) Nonadherence to medication: Status: Acute DS: Summary Hospital Course Hospital Course: From the history and physical by the admitting hospitalist, Bruna Olivares, 09/11/23: Rocío Schmid is a 62 years old woman with past medical history significant for resistant hypertension, ongoing tobacco smoking, severe vascular disease s/p right endarterectomy/left fem-pop bypass/left angioplasty profundus femoris and popliteal inclusive list of distal stenosis/right common iliac stent, type 2 diabetes mellitus, chronic back pain secondary to lumbar spinal stenosis/lumbosacral spondylolysis, CAD, and hyperlipidemia presents to the emergency department complaining of frontal headache that started yesterday at 4 PM associated with nausea and blurry vision. Also, her blood pressure has been quite elevated. Denied events of vomiting, dizziness or loss of consciousness. Denied acute cardiopulmonary, gastrointestinal or genitourinary symptoms. She said that she takes the medications for high blood pressure and stated been taking them as prescribed without missing any dose. She does not recall the name of any of her medications, except for oxycodone. Patient said that she had a procedure done on August 28 but she does not know the specific procedure. According to our records the patient underwent an angiogram that day. In the ED, she was found to have elevated blood pressure (max 222/98, last 175/64). Blood workup including CMP and CBC are unremarkable except for elevated blood glucose, 248. Troponin is 4.9. Head CT scan showed no acute intracranial pathology. ECG showed ST depression in lateral leads (unchanged from prior), incomplete right bundle branch block. ED tx: Labetalol 20 mg IV, morphine 4 mg IV, hydralazine 20 mg IV, Dilaudid 1 mg IV She was admitted to the medical-surgical floor and blood pressure improved to 168/72 with resumption of home medications. Headache completely resolved. No chest pain. She admitted to medication nonadherence and has had problems in the past as well. She committed to taking her medications as prescribed and refills of her antihypertensives were provided [amlodipine 10 mg daily + lisinopril 40 mg daily + hydralazine 25 mg tid + carvedilol 25 mg bid]. She was counseled to quit smoking and NRT was prescribed. She was discharged home with VNA services for BP monitoring and should see her PCP in 1 week. Time Attestation Discharge Coordination Time (in mins): 35 Quality: Safe Use of Opioids Does Pt have an Active Cancer Diagnosis on the Problem List?: No Quality: Stroke Does the patient have a stroke diagnosis?: No Physical Exam Vital Signs: Vital Signs: Last Vital Signs Temp 98.4 F 09/11/23 06:58 Pulse 82 09/11/23 06:58 Resp 17 09/11/23 06:58 BP 168/72 H 09/11/23 07:50 Pulse Ox 95 09/11/23 03:50 O2 Del Method Room Air 09/11/23 03:50 BMI result Body Mass Index 27.7 Gen: in no acute distress HEENT: sclera anicteric, moist mucus membranes Neck: supple Lungs: clear to auscultation bilaterally Heart: regular rate and rhythm, no murmurs Abd: soft, non-tender, non-distended Ext: no edema Skin: warm/well-perfused Neuro: alert and oriented x3, no focal findings Psych: appropriate affect DS: Data Data Completed and Pending Completed studies during hospitalization [Text1]: Laboratory Results WBC 6.8 X10*3/uL (4.8-10.8) 09/11/23 05:01 RBC 3.50 X10*6/uL (4.20-5.50) L 09/11/23 05:01 Hgb 10.6 g/dl (12.0-16.0) L 09/11/23 05:01 Hct 31.8 % (37.0-47.0) L 09/11/23 05:01 MCV 90.9 fL (80.0-98.0) 09/11/23 05:01 MCH 30.3 pg (27.0-33.0) 09/11/23 05:01 MCHC 33.3 g/dl (31.0-35.0) 09/11/23 05:01 RDW 13.6 % (11.0-16.0) 09/11/23 05:01 Plt Count 274 X10*3/uL (160-400) 09/11/23 05:01 MPV 9.4 fL (9.4-12.3) 09/11/23 05:01 Immature Gran % (Auto) 0.3 % (0.0-0.4) 09/10/23 20:04 Neut % (Auto) 60.7 % (45-73) 09/10/23 20:04 Lymph % (Auto) 28.6 % (20-40) 09/10/23 20:04 [place] % (Auto) 6.8 % (2-11) 09/10/23 20:04 Eos % (Auto) 3.1 % (0-4) 09/10/23 20:04 Baso % (Auto) 0.5 % (0-2) 09/10/23 20:04 Lymph # (Auto) 1.8 X10*3/uL (1.2-4.9) 09/10/23 20:04 [place] # (Auto) 0.4 X10*3/uL (0.1-1.2) 09/10/23 20:04 Eos # (Auto) 0.2 X10*3/uL (0.0-0.4) 09/10/23 20:04 Baso # (Auto) 0.0 X10*3/uL (0.0-0.2) 09/10/23 20:04 Abs Immat Gran (auto) 0.02 X10*3/uL (0.00-0.03) 09/10/23 20:04 Absolute Neuts (auto) 3.9 x10*3/uL (2.0-8.3) 09/10/23 20:04 Absolute Nucleated RBC 0.000 X10*3/uL (0.0-0.012) 09/11/23 05:01 Nucleated RBC % (auto) 0.0 /100WBC (0.0-0.2) 09/11/23 05:01 Sodium 141 mmol/L (135-145) 09/11/23 05:01 Potassium 3.9 mmol/L (3.3-5.1) 09/11/23 05:01 Chloride 107 mmol/L (96-108) 09/11/23 05:01 Carbon Dioxide 27 mmol/L (22-29) 09/11/23 05:01 Anion Gap 11 (12-20) L 09/11/23 05:01 BUN 13 mg/dL (9-16) 09/11/23 05:01 Creatinine 0.90 mg/dL (0.5-1.4) 09/11/23 05:01 Estim Creat Clear Calc 54.9 09/11/23 05:01 Estimated GFR > 60 09/11/23 05:01 POC Glucose 185 mg/dL (60-115) H 09/11/23 11:18 Random Glucose 199 mg/dL (60-115) H 09/11/23 05:01 Calcium 9.0 mg/dL (8.4-10.2) D 09/11/23 05:01 Total Bilirubin 0.3 mg/dL (0.0-1.0) 09/10/23 20:04 AST 11 U/L (5-31) 09/10/23 20:04 ALT 6 U/L (0-31) 09/10/23 20:04 Alkaline Phosphatase 79 U/L (39-117) 09/10/23 20:04 Troponin I High Sens 4.9 ng/L (<3.5-17.0) D 09/10/23 20:04 C-Reactive Protein 0.28 mg/dL (< or = 0.50) 09/10/23 20:04 Total Protein 6.4 g/dL (6.5-8.0) L 09/10/23 20:04 Albumin 3.7 g/dL (3.5-5.0) 09/10/23 20:[address] 09/10/23 21:19 IMPRESSION: 1. No acute intracranial pathology. 2. There is mild right ethmoid sinusitis. Discharge Plan Discharge Anticipated Discharge Date/Time: 09/11/23 12:12 Patient Disposition: Home Health Service Discharge Diagnosis: hypertensive urgency due to medication non-adherence Referrals: Radha Jamison DO [Primary Care Provider] - 1 Week Discharge Medications: New nicotine (polacrilex) 2 mg Gum 2 mg buccal Q2H PRN (Reason: Nicotine Cravings) Qty: 100 0RF nicotine 21 mg/24 hr Patch 24 Hour 21 mg transdermal DAILY Qty: 30 0RF Continued pioglitazone 15 mg tablet 15 mg PO DAILY 30 Days Qty: 30 11RF (DME) lancets [TRUEplus Lancets] 33 gauge misc See Rx Instructions .Route Qty: 100 11RF Rx Instructions: 4x daily metformin 1,000 mg Tablet 1,000 mg PO BID clopidogrel [Plavix] 75 mg tablet 75 mg PO DAILY Qty: 30 5RF fluticasone propionate 50 mcg/actuation [place],Suspension 2 spray INTRANASAL DAILY PRN (Reason: Allergy Symptoms) acetaminophen [Arthritis Pain Relief (acetam)] 650 mg Tablet Extended Release 650 mg PO Q8H PRN (Reason: Pain (Scale Score 1-3)) amitriptyline 50 mg tablet 50 mg PO BEDTIME baclofen 10 mg tablet 10 mg PO TID PRN (Reason: muscle spasm) hydroxyzine pamoate 25 mg capsule 25 mg PO Q6H PRN (Reason: anxiety) fluticasone propionate 110 mcg/actuation Hfa Aerosol Inhaler 2 puff INHALATION BID PRN (Reason: Shortness Of Breath Or Wheezing) carvedilol [Coreg] 25 mg tablet 25 mg PO BID Qty: 60 0RF Rx Instructions: must administer with a meal/food hydralazine 25 mg tablet 25 mg PO TID Qty: 90 0RF amlodipine 10 mg Tablet 10 mg PO BEDTIME Qty: 30 0RF lisinopril 40 mg tablet 40 mg PO DAILY Qty: 30 0RF multivitamin Tablet 1 tab PO DAILY gabapentin 800 mg tablet 800 mg PO BID aspirin [Adult Low Dose Aspirin] 81 mg tablet,delayed release (DR/EC) 81 mg PO DAILY escitalopram oxalate [Lexapro] 20 mg tablet 20 mg PO DAILY@1800 mirtazapine 45 mg tablet 45 mg PO BEDTIME atorvastatin [Lipitor] 80 mg tablet 80 mg PO BEDTIME Tresiba FlexTouch U-100 100 unit/mL (3 mL) insulin pen 10 unit subcut DAILY (DME) FreeStyle Lite Strips Strip See Rx Instructions Not Applicable QID Qty: 10 Rx Instructions: As directed Asmanex HFA 100 mcg/actuation HFA aerosol inhaler 2 puff inhalation BID oxycodone 5 mg tablet 5 mg PO 5XD PRN (Reason: Severe Pain (Scale Score 7-10)) omeprazole 20 mg capsule,delayed release(DR/EC) 40 mg PO DAILY PRN (Reason: Heartburn) Discharge Orders: Discharge Order (Routine); Ordered 09/11/23 Ordered By: Crystal Lim Diet: Diabetic diet Activity on Discharge: As tolerated Stand Alone Forms: Patient Portal Discharge page Print Language: Hungarian Care Plan Goals: cardiovascular health Health Concerns: hypertensive urgency due to medication non-adherence Plan of Treatment: take all medications as prescribed quit smoking Please follow up with your primary care doctor within 1 week. Return to the hospital if you experience recurrent or worsening symptoms. Assessment: See Discharge Summary.
== END 2023-09-11 13:32 | disposition home health service (06) | DRG 199 ==
LOC: HO.ED 23:50 → HO.EDOVER 09-11 00:59 → HO.S3 09-11 02:11
PROVIDERS: Admitting Provider Internal Medicine; Emergency Provider Emergency Medicine; PCP Family Medicine; Visit Provider Family Medicine
DX: I16.0 Hypertensive urgency (principal); E11.51 Type 2 diabetes mellitus with diabetic peripheral angiopathy without gangrene; I10 Essential (primary) hypertension; I1A.0 Resistant hypertension; M54.50 Low back pain, unspecified; F17.210 Nicotine dependence, cigarettes, uncomplicated; I25.10 Atherosclerotic heart disease of native coronary artery without angina pectoris; I70.203 Unspecified atherosclerosis of native arteries of extremities, bilateral legs; G89.29 Other chronic pain; M48.061 Spinal stenosis, lumbar region without neurogenic claudication; M43.07 Spondylolysis, lumbosacral region; Z71.6 Tobacco abuse counseling; Z91.040 Latex allergy status; Z91.148 Patient's other noncompliance with medication regimen for other reason; Z79.4 Long term (current) use of insulin; Z79.02 Long term (current) use of antithrombotics/antiplatelets; Z79.82 Long term (current) use of aspirin; Z79.84 Long term (current) use of oral hypoglycemic drugs; Z79.899 Other long term (current) drug therapy
CPT/HCPCS: 36415; 70450; 80048; 80053; 82947; 84484; 85025; 85027; 86140; 93005; 99221; 99285; J0131; J0360; J1170; J1200; J1920; J2270; J2765

== ENCOUNTER → 2023-09-10 19:57 | Outpatient (BNV) | payer MEDICAID, SELFPAY | PROVIDERS: Admitting Provider Internal Medicine; Emergency Provider Emergency Medicine; PCP Family Medicine; Visit Provider Internal Medicine Cardiovascular Disease | DX: I10 Essential (primary) hypertension (principal); R94.31 Abnormal electrocardiogram [ECG] [EKG]; I45.19 Other right bundle-branch block | CPT/HCPCS: 93010 ==

== ENCOUNTER → 2023-09-11 00:33 | Outpatient (BNV) | payer MEDICAID, SELFPAY | PROVIDERS: Admitting Provider Internal Medicine; Emergency Provider Emergency Medicine; PCP Family Medicine; Visit Provider Internal Medicine | DX: R51.9 Headache, unspecified (principal); I10 Essential (primary) hypertension; Z91.148 Patient's other noncompliance with medication regimen for other reason; M54.50 Low back pain, unspecified; G89.29 Other chronic pain | CPT/HCPCS: 99234; 99499; G0180 ==

== ENCOUNTER 2023-09-15 00:25 | Emergency (ER) | payer MEDICAID, SELFPAY ==
[2023-09-15] VITALS (8 sets, daily range): BP systolic 162–244; BP diastolic 81–144; PULSE 87–104; RESP 14–30; TEMP 36.8; O2SAT 97–98; BMI 28.2
--- NOTE | 2023-09-15 | ECG_ITS ---
Test Reason : HTN Blood Pressure : / mmHG Vent. Rate : 098 BPM Atrial Rate : 098 BPM P-R Int : 136 ms QRS Dur : 082 ms QT Int : 356 ms P-R-T Axes : 036 -15 153 degrees QTc Int : 454 ms Normal sinus rhythm Left ventricular hypertrophy with repolarization abnormality ( R in aVL , [place] product ) Abnormal ECG When compared with ECG of 10-SEP-2023 23:36, Incomplete right bundle branch block is no longer Present Referred By: Generic ED Physician Electronically Signed By:Ghanshyam Daniel
--- NOTE | 2023-09-15 00:39 | ED.GENADULT ---
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 She then felt her typical headache of pressure back pain and nausea. She states she has felt this several times. No numbness, weakness, chest pain. She cannot tell me her medications but states she took them all. Denies cocaine abuse. amlodipine 10 mg daily + lisinopril 40 mg daily + hydralazine 25 mg tid + carvedilol 25 mg bid] complaint: HTN Onset (ago): hour(s) (2) Location: head Radiation: non-radiation Severity: moderate Quality: aching Pain Consistency: constant Relieving factors: none Exacerbating factors: other (elevated BP ) Associated symptoms: headaches Treatments prior to arrival: none Related Data Home Medications ?Medication ?Instructions ?Recorded ?Confirmed metformin 1,000 mg tablet 1,000 mg PO BID 12/22/19 09/11/23 aspirin 81 mg tablet,delayed 81 mg PO DAILY 01/02/20 09/11/23 release (Adult Low Dose Aspirin) atorvastatin 80 mg tablet (Lipitor) 80 mg PO BEDTIME 01/02/20 09/11/23 escitalopram oxalate 20 mg tablet 20 mg PO DAILY@1800 01/02/20 09/11/23 (Lexapro) gabapentin 800 mg tablet 800 mg PO BID 01/02/20 09/11/23 mirtazapine 45 mg tablet 45 mg PO BEDTIME 01/02/20 09/11/23 multivitamin 1 tab PO DAILY 01/02/20 09/11/23 acetaminophen 650 mg 650 mg PO Q8H PRN Pain (Scale 01/16/21 09/11/23 tablet,extended release (Arthritis Score 1-3) Pain Relief (acetaminophen) ER) fluticasone propionate 50 2 spray intranasal DAILY PRN 01/16/21 09/11/23 mcg/actuation nasal Allergy Symptoms spray,suspension blood sugar diagnostic (FreeStyle #10 ea 03/30/21 08/21/23 Lite Strips) insulin degludec 100 unit/mL (3 10 unit subcut DAILY 10/03/22 09/11/23 mL) subcutaneous pen (Tresiba FlexTouch U-100 insulin) amitriptyline 50 mg tablet 50 mg PO BEDTIME 11/07/22 09/11/23 mometasone 100 mcg/actuation HFA 2 puff inhalation BID 06/12/23 09/11/23 aerosol inhaler (Asmanex HFA) oxycodone 5 mg tablet 5 mg PO 5XD PRN Severe Pain (Scale 06/12/23 09/11/23 Score 7-10) omeprazole 20 mg capsule,delayed 40 mg PO DAILY PRN Heartburn 07/19/23 09/11/23 release baclofen 10 mg tablet 10 mg PO TID PRN muscle spasm 07/28/23 09/11/23 hydroxyzine pamoate 25 mg capsule 25 mg PO Q6H PRN anxiety 07/28/23 09/11/23 fluticasone propionate 110 2 puff inhalation BID PRN 09/11/23 09/11/23 mcg/actuation HFA aerosol inhaler Shortness Of Breath Or Wheezing Previous Rx's ?Medication ?Instructions ?Recorded clopidogrel 75 mg tablet (Plavix) 75 mg PO DAILY #30 tabs 12/02/20 pioglitazone 15 mg tablet 15 mg PO DAILY 30 days #30 tabs 12/02/20 lancets 33 gauge (TRUEplus Lancets) #100 ea 07/26/21 amlodipine 10 mg tablet 10 mg PO BEDTIME #30 tabs 09/11/23 carvedilol 25 mg tablet (Coreg) 25 mg PO BID #60 tabs 09/11/23 hydralazine 25 mg tablet 25 mg PO TID #90 tabs 09/11/23 lisinopril 40 mg tablet 40 mg PO DAILY #30 tabs 09/11/23 nicotine (polacrilex) 2 mg gum 2 mg buccal Q2H PRN Nicotine 09/11/23 Cravings #100 ea nicotine 21 mg/24 hr daily 21 mg transdermal DAILY #30 ea 09/11/23 transdermal patch Allergies Allergy/AdvReac Type Severity Reaction Status Date / Time latex [LATEX] Allergy Severe RASH Verified 09/15/23 00:51 naproxen [From NAPROSYN] AdvReac Intermediate TACHYCARDIA Verified 09/15/23 00:51 Review of Systems Review of Systems: Constitutional : No Fever, No Chills, No Fatigue ENT/Mouth : No sore throat, No Rhinorrhea Eyes: No Eye Pain, No Swelling, No Redness Cardiovascular : No Chest Pain, No SOB, No Dyspnea on Exertion Respiratory : No Cough, No Sputum Gastrointestinal : No Nausea, No Vomiting, No Diarrhea, No abdominal Pain Genitourinary : No Dysuria, No Urinary Frequency, No Hematuria, Musculoskeletal : No joint pain, No Myalgias, No Joint Swelling Skin : No Skin Lesions, No rash Neuro : No Weakness, No Numbness, No Dizziness, positive Headache Psych : No Anxiety/Panic, No Depression All other systems reviewed and are negative [facility] Past Medical History Attestation statement: The following information was validated with the patient. Source: old records reviewed Medical History Mild aortic valve stenosis LORE (obstructive sleep apnea) Chronic low back pain Lumbar spinal stenosis HTN (hypertension) Vitamin D deficiency HLD (hyperlipidemia) T2DM (type 2 diabetes mellitus) H. pylori infection CAD (coronary artery disease) Cyst (solitary) of breast Kidney calculi Arthritis Asthma HTN (hypertension) Diabetes Surgical History History of right-sided carotid endarterectomy (~11/2022) S/P aortogram History of esophagogastroduodenoscopy (EGD) Hx of colonoscopy History of breast surgery History of cardiac cath Family History Family History Mother Diabetes Liver cancer Social History Social History Household Members: Family and Children Household Members Other:: friend and adult son Housing: Apartment Are you a primary direct care worker to a significant other at home: No Do you presently have visiting nurse or other home services: No Alcohol intake: never Comment: pt sleeping Patient Tobacco Use Status: Current everyday Tobacco user Tobacco use type: Cigarette Cigarette Packs Per Day: 1 Cigarettes Per Day: 2 Years Smoked: 40 Smoked in Last 30 Days: No e-Cigarette/Vaping Use: Never Used Second Hand Smoke Exposure: No Advance Directives: No Advance Directives Information Provided: Yes Do you have a plan to hurt others: No Plan Patient : No service: No Current occupational status: unemployed and disabled Physical Exam ED Vital Signs: Vital Signs - 24 hr 09/15/23 00:46 09/15/23 00:46 09/15/23 01:00 Temperature Pulse Rate 102 H 91 Respiratory Rate 14 14 Blood Pressure 244/105 H 244/106 H 244/106 H Pulse Oximetry 97 98 Oxygen Delivery Method Room Air Room Air 09/15/23 01:09 09/15/23 01:16 09/15/23 01:28 Temperature Pulse Rate Respiratory Rate Blood Pressure 225/144 H 213/86 H 197/83 H Pulse Oximetry Oxygen Delivery Method 09/15/23 02:18 09/15/23 02:24 Temperature 98.3 F 98.3 F Pulse Rate 87 87 Respiratory Rate 30 H 30 H Blood Pressure 162/81 H 162/81 H Pulse Oximetry 98 Oxygen Delivery Method Room Air Room Air BMI result Body Mass Index 28.2 Appearance: Alert. Oriented X3. No acute distress. Eyes: Pupils equal, round and reactive to light. ENT: Pharynx normal. Neck: Normal inspection. Neck supple. CVS: Normal heart rate and rhythm. Pulses normal. Respiratory: No respiratory distress. Breath sounds normal. Abdomen: Soft and nontender. Skin: Skin warm and dry. Normal skin color. Normal skin turgor. Extremities: No lower extremity edema. No calf ttp Neuro: Oriented X 3. No motor deficit. No sensory deficit. Cn2-12 intact Course Course Course Narrative: BP is 162/81 really after pain control. she even c/o headaches after BP was low I think she suffers from chronic headaches triggering her BP she likely has medication overuse headaches after dilaudid she states she felt dizzy and vomited told she could stay longer and be observed (I had to run to see a critical patient) but then RN notes she opted to get into the car and leave with her son. son was present aware she could stay I spoke to him about his. He was aware she could sleep and that we planned to monitor her until meds worn off. I did attempt to call patient in AM to see how she was doing but no answer Medications Administered Discontinued Medications Generic Name Dose Route Start Last Admin Trade Name Nabila PRN Reason Stop Dose Admin Hydralazine HCl 10 mg 09/15/23 00:45 09/15/23 01:00 Hydralazine Hcl 20 Mg/Ml Vial IVPUSH 09/15/23 00:46 10 mg ONCE ONE Administration Protocol Hydromorphone HCl 0.5 mg 09/15/23 02:08 09/15/23 02:16 Hydromorphone Hcl 0.5 Mg/0.5 Ml Syringe IVPUSH 09/15/23 02:09 0.5 mg ONCE ONE Administration Protocol Lorazepam 1 mg 09/15/23 00:45 09/15/23 01:00 Lorazepam 2 Mg/Ml Vial IVPUSH 09/15/23 00:46 1 mg STAT STA Administration Oxycodone HCl 10 mg 09/15/23 00:45 09/15/23 01:00 Oxycodone Hcl Immed Release 5 Mg Tablet PO 09/15/23 00:46 10 mg ONCE ONE Administration Medical Decision Making Medical Decision Making [facility] Narrative: 62 yo female with PMH of uncontrolled HTN but also admittedly not compliant though she swears this time she took her medications, chronic smoker, severe vascular disease s/p right endarterectomy/left fem-pop bypass/left angioplasty, DM2, chronic headaches and chronic back pain, CAD and HLD who is here again with c/o her typical headache and elevated BP she reports she takes her medications but she just recently was admitted and at that time was not taking her medications. The patient will get IV ativan, IV hydralazine, PO oxycodone. I do not suspect ICH she has had multiple CT head and CTA that were negative. Differential Diagnosis Differential Diagnoses: The differential diagnosis associated with the presentation includes uncontrolled HTN, noncompliance, chronic headaches Admission/Observation Consideration of admission/observation: Escalation of care including admission/observation considered feels better sleeping BP 175/77 stable for DC improved Lab Data [facility] Lab Attestation statement: I reviewed the patient's lab results. 09/15/23 01:08 09/15/23 01:08 Labs: Lab Results 09/15/23 Range/Units 01:08 WBC 7.3 (4.8-10.8) X10*3/uL RBC 4.00 L (4.20-5.50) X10*6/uL Hgb 11.9 L (12.0-16.0) g/dl Hct 36.0 L (37.0-47.0) % MCV 90.0 (80.0-98.0) fL MCH 29.8 (27.0-33.0) pg MCHC 33.1 (31.0-35.0) g/dl RDW 13.3 (11.0-16.0) % Plt Count 304 (160-400) X10*3/uL MPV 9.4 (9.4-12.3) fL Immature Gran % (Auto) 0.3 (0.0-0.4) % Neut % (Auto) 61.7 (45-73) % Lymph % (Auto) 28.2 (20-40) % [place] % (Auto) 6.3 (2-11) % Eos % (Auto) 3.0 (0-4) % Baso % (Auto) 0.5 (0-2) % Lymph # (Auto) 2.1 (1.2-4.9) X10*3/uL [place] # (Auto) 0.5 (0.1-1.2) X10*3/uL Eos # (Auto) 0.2 (0.0-0.4) X10*3/uL Baso # (Auto) 0.0 (0.0-0.2) X10*3/uL Abs Immat Gran (auto) 0.02 (0.00-0.03) X10*3/uL Absolute Neuts (auto) 4.5 (2.0-8.3) x10*3/uL Absolute Nucleated RBC 0.000 (0.0-0.012) X10*3/uL Nucleated RBC % (auto) 0.0 (0.0-0.2) /100WBC Sodium 141 (135-145) mmol/L Potassium 3.7 (3.3-5.1) mmol/L Chloride 108 (96-108) mmol/L Carbon Dioxide 24 (22-29) mmol/L Anion Gap 13 (12-20) BUN 12 (9-16) mg/dL Creatinine 0.90 (0.5-1.4) mg/dL Estim Creat Clear Calc 55.4 Estimated GFR > 60 Random Glucose 255 H (60-115) mg/dL Calcium 9.4 (8.4-10.2) mg/dL Troponin I High Sens 3.7 (<3.5-17.0) ng/L Independent Interpretation I performed an independent interpretation of an: EKG Interpretation: Rate: 98 Rhythm: NSR Halls: left Normal P waves. Normal GRETCHEN. Normal QRS complex. ST T wave : no ANGI, chronic ST depressions in I, aVL, V4-V6 no change qTC: 454 prior studies: no change from priors The study has been interpreted contemporaneously by me. . Independent Historian Clinical information obtained from an independent historian. History obtained from or confirmed by: Other (son) External Record Review External record reviewed: Inpatient record Social Determinants Patient?s care significantly limited by Social Determinants of Health including: Other Social Determinant of Health Critical Care Time Critical Care Time Critical Care Time: Yes Total Critical Care Time: 35 Attestation: IV hydralazine with improvement of BP, review of records I attest to this time spent taking care of the patient Discharge Plan Discharge Clinical Impression: Hypertension, uncontrolled Chronic headache Qualifiers: Headache type: unspecified Intractability: not intractable Qualified Code(s): R51.9 - Headache, unspecified Patient Disposition: Home, Self-Care Instructions: Acute Headache (ED), Chronic Hypertension (ED) Additional Instructions: return for worsening symptoms or concerns BP was improved continue your medications follow up with your doctor Prescriptions: No Action pioglitazone 15 mg tablet 15 mg PO DAILY 30 Days Qty: 30 11RF (DME) lancets [TRUEplus Lancets] 33 gauge misc See Rx Instructions .Route Qty: 100 11RF Rx Instructions: 4x daily metformin 1,000 mg Tablet 1,000 mg PO BID clopidogrel [Plavix] 75 mg tablet 75 mg PO DAILY Qty: 30 5RF fluticasone propionate 50 mcg/actuation [place],Suspension 2 spray INTRANASAL DAILY PRN (Reason: Allergy Symptoms) acetaminophen [Arthritis Pain Relief (acetam)] 650 mg Tablet Extended Release 650 mg PO Q8H PRN (Reason: Pain (Scale Score 1-3)) amitriptyline 50 mg tablet 50 mg PO BEDTIME baclofen 10 mg tablet 10 mg PO TID PRN (Reason: muscle spasm) hydroxyzine pamoate 25 mg capsule 25 mg PO Q6H PRN (Reason: anxiety) fluticasone propionate 110 mcg/actuation Hfa Aerosol Inhaler 2 puff INHALATION BID PRN (Reason: Shortness Of Breath Or Wheezing) nicotine (polacrilex) 2 mg Gum 2 mg buccal Q2H PRN (Reason: Nicotine Cravings) Qty: 100 0RF nicotine 21 mg/24 hr Patch 24 Hour 21 mg transdermal DAILY Qty: 30 0RF carvedilol [Coreg] 25 mg tablet 25 mg PO BID Qty: 60 0RF Rx Instructions: must administer with a meal/food hydralazine 25 mg tablet 25 mg PO TID Qty: 90 0RF amlodipine 10 mg Tablet 10 mg PO BEDTIME Qty: 30 0RF lisinopril 40 mg tablet 40 mg PO DAILY Qty: 30 0RF multivitamin Tablet 1 tab PO DAILY gabapentin 800 mg tablet 800 mg PO BID aspirin [Adult Low Dose Aspirin] 81 mg tablet,delayed release (DR/EC) 81 mg PO DAILY escitalopram oxalate [Lexapro] 20 mg tablet 20 mg PO DAILY@1800 mirtazapine 45 mg tablet 45 mg PO BEDTIME atorvastatin [Lipitor] 80 mg tablet 80 mg PO BEDTIME Tresiba FlexTouch U-100 100 unit/mL (3 mL) insulin pen 10 unit subcut DAILY (DME) FreeStyle Lite Strips Strip See Rx Instructions Not Applicable QID Qty: 10 Rx Instructions: As directed Asmanex HFA 100 mcg/actuation HFA aerosol inhaler 2 puff inhalation BID oxycodone 5 mg tablet 5 mg PO 5XD PRN (Reason: Severe Pain (Scale Score 7-10)) omeprazole 20 mg capsule,delayed release(DR/EC) 40 mg PO DAILY PRN (Reason: Heartburn) Interventions: ED Discharge Assessment Last Done: 09/15/23 02:24 Discharge Date/Time: 09/15/23 03:07 Print Language: Polish
[2023-09-15] MEDS: hydrALAZINE HCl 20 MG/ML VIAL 10 MG IVPUSH (01:00)
[2023-09-15] MEDS: LORazepam 2 MG/ML VIAL 1 MG IVPUSH (01:00)
[2023-09-15] MEDS: oxyCODONE HCl Immed Release 5 MG TABLET 10 MG PO (01:00)
[2023-09-15 01:41] LABS: MANUAL DIFF FLAG NO
[2023-09-15 01:42] LABS: Basophils Percent Auto 0.5 % (0-2); Eosinophils Absolute Auto 0.2 X10*3/uL (0.0-0.4); Hemoglobin 11.9 g/dl (12.0-16.0); Imm Gran Abs Auto 0.02 X10*3/uL (0.00-0.03); Imm Gran Pct Auto 0.3 % (0.0-0.4); Lymphocytes Absolute Auto 2.1 X10*3/uL (1.2-4.9); Lymphocytes Percent Auto 28.2 % (20-40); Mean Corpuscular HGB Conc 33.1 g/dl (31.0-35.0); Mean Corpuscular Hemoglobin 29.8 pg (27.0-33.0); Mean Platelet Volume 9.4 fL (9.4-12.3); Monocytes Absolute Auto 0.5 X10*3/uL (0.1-1.2); Monocytes Percent Auto 6.3 % (2-11); Neutrophils Absolute Auto 4.5 x10*3/uL (2.0-8.3); Neutrophils Percent Auto 61.7 % (45-73); Platelet Count 304 X10*3/uL (160-400); Red Cell Distribution Width 13.3 % (11.0-16.0); White Blood Count 7.3 X10*3/uL (4.8-10.8)
[2023-09-15 01:58] LABS: Anion Gap 13 (12-20); Blood Urea Nitrogen 12 mg/dL (9-16); Calcium 9.4 mg/dL (8.4-10.2); Carbon Dioxide 24 mmol/L (22-29); Chloride 108 mmol/L (96-108); Creatinine Clr Calc Pharmacy 55.4; Estimated Glomerular Filt Rate > 60; Glucose Random 255 mg/dL (60-115); Potassium 3.7 mmol/L (3.3-5.1); Sodium 141 mmol/L (135-145)
[2023-09-15 02:02] LABS: Troponin-I High Sensitivity 3.7 ng/L (<3.5-17.0)
[2023-09-15] MEDS: HYDROmorphone HCl 0.5 MG/0.5 ML SYRINGE IVPUSH (02:16)
== END 2023-09-15 03:07 | disposition home or self-care (01) ==
PROVIDERS: Emergency Provider Emergency Medicine
DX: R51.9 Headache, unspecified (principal); I10 Essential (primary) hypertension; Z91.148 Patient's other noncompliance with medication regimen for other reason; E11.9 Type 2 diabetes mellitus without complications; E78.5 Hyperlipidemia, unspecified; F17.210 Nicotine dependence, cigarettes, uncomplicated; Z79.84 Long term (current) use of oral hypoglycemic drugs; Z79.899 Other long term (current) drug therapy; Z79.82 Long term (current) use of aspirin; Z79.02 Long term (current) use of antithrombotics/antiplatelets
CPT/HCPCS: 36415; 80048; 84484; 85025; 93005; 96374; 96375; 99284; 99285; J0360; J1170; J2060

== ENCOUNTER → 2023-09-15 00:31 | Outpatient (BNV) | payer MEDICAID, SELFPAY | PROVIDERS: Emergency Provider Emergency Medicine; Visit Provider Internal Medicine Cardiovascular Disease | DX: I10 Essential (primary) hypertension (principal); R94.31 Abnormal electrocardiogram [ECG] [EKG] | CPT/HCPCS: 93010 ==

== ENCOUNTER 2023-09-15 16:49 | Observation (INO) | payer MEDICAID, SELFPAY ==
[2023-09-15] VITALS (9 sets, daily range): BP systolic 149–246; BP diastolic 56–117; PULSE 79–102; RESP 16–21; TEMP 36.5–36.8; O2SAT 97–99; BMI 27.7
--- NOTE | 2023-09-15 16:58 | ED.GENADULT ---
HPI - General Adult General Chief complaint: General Medical Stated complaint: High BP Time Seen by Provider: 09/15/23 17:37 Source: patient Mode of arrival: ambulatory Limitations: no limitations History of Present Illness ED Provider: Dr. Nguyen Carrera HPI narrative: patient comes to the emergency room complaining of severe headache and hypertension. Patient was discharged earlier this morning, patient came complaining of the same problem. Patient came in with a blood pressure in the 230s and with headache. - Patient is supposed to be taking amlodipine 10 mg, lisinopril 40 mg, hydralazine 25 mg t.i.d., carvedilol 25 mg b.i.d. patient states that she is 100% compliant with the medication. According to notes from the hospitalist on her previous admission a few days ago, patient admitted not to be compliant. When I discussed this with the patient, patient states that she disagrees, she is always compliant with her medications. Related Data Home Medications ?Medication ?Instructions ?Recorded ?Confirmed metformin 1,000 mg tablet 1,000 mg PO BID 12/22/19 09/11/23 aspirin 81 mg tablet,delayed 81 mg PO DAILY 01/02/20 09/11/23 release (Adult Low Dose Aspirin) atorvastatin 80 mg tablet (Lipitor) 80 mg PO BEDTIME 01/02/20 09/11/23 escitalopram oxalate 20 mg tablet 20 mg PO DAILY@1800 01/02/20 09/11/23 (Lexapro) gabapentin 800 mg tablet 800 mg PO BID 01/02/20 09/11/23 mirtazapine 45 mg tablet 45 mg PO BEDTIME 01/02/20 09/11/23 multivitamin 1 tab PO DAILY 01/02/20 09/11/23 acetaminophen 650 mg 650 mg PO Q8H PRN Pain (Scale 01/16/21 09/11/23 tablet,extended release (Arthritis Score 1-3) Pain Relief (acetaminophen) ER) fluticasone propionate 50 2 spray intranasal DAILY PRN 01/16/21 09/11/23 mcg/actuation nasal Allergy Symptoms spray,suspension blood sugar diagnostic (FreeStyle #10 ea 03/30/21 08/21/23 Lite Strips) insulin degludec 100 unit/mL (3 10 unit subcut DAILY 10/03/22 09/11/23 mL) subcutaneous pen (Tresiba FlexTouch U-100 insulin) amitriptyline 50 mg tablet 50 mg PO BEDTIME 11/07/22 09/11/23 mometasone 100 mcg/actuation HFA 2 puff inhalation BID 06/12/23 09/11/23 aerosol inhaler (Asmanex HFA) oxycodone 5 mg tablet 5 mg PO 5XD PRN Severe Pain (Scale 06/12/23 09/11/23 Score 7-10) omeprazole 20 mg capsule,delayed 40 mg PO DAILY PRN Heartburn 07/19/23 09/11/23 release baclofen 10 mg tablet 10 mg PO TID PRN muscle spasm 07/28/23 09/11/23 hydroxyzine pamoate 25 mg capsule 25 mg PO Q6H PRN anxiety 07/28/23 09/11/23 fluticasone propionate 110 2 puff inhalation BID PRN 09/11/23 09/11/23 mcg/actuation HFA aerosol inhaler Shortness Of Breath Or Wheezing Previous Rx's ?Medication ?Instructions ?Recorded clopidogrel 75 mg tablet (Plavix) 75 mg PO DAILY #30 tabs 12/02/20 pioglitazone 15 mg tablet 15 mg PO DAILY 30 days #30 tabs 12/02/20 lancets 33 gauge (TRUEplus Lancets) #100 ea 07/26/21 amlodipine 10 mg tablet 10 mg PO BEDTIME #30 tabs 09/11/23 carvedilol 25 mg tablet (Coreg) 25 mg PO BID #60 tabs 09/11/23 hydralazine 25 mg tablet 25 mg PO TID #90 tabs 09/11/23 lisinopril 40 mg tablet 40 mg PO DAILY #30 tabs 09/11/23 nicotine (polacrilex) 2 mg gum 2 mg buccal Q2H PRN Nicotine 09/11/23 Cravings #100 ea nicotine 21 mg/24 hr daily 21 mg transdermal DAILY #30 ea 09/11/23 transdermal patch Allergies Allergy/AdvReac Type Severity Reaction Status Date / Time latex [LATEX] Allergy Severe RASH Verified 09/15/23 17:02 naproxen [From NAPROSYN] AdvReac Intermediate TACHYCARDIA Verified 09/15/23 17:02 Review of Systems Review of Systems: Constitutional : No Weight loss, No Fever, No Chills, No Night Sweats, No Fatigue, No Malaise ENT/Mouth : No Hearing loss, No Ear Pain, No Nasal Congestion, No Sinus Pain, No Hoarseness, No sore throat, No Rhinorrhea, No Swallowing Difficulty Eyes: No Eye Pain, No Swelling, No Redness, No Foreign Body, No Discharge, No Vision Changes Cardiovascular : No Chest Pain, No SOB, No Dyspnea on Exertion, No Orthopnea, No Edema, No Palpitations Respiratory : No Cough, No Sputum, No Wheezing, No Smoke Exposure, No Dyspnea Gastrointestinal : No Nausea, No Vomiting, No Diarrhea, No Constipation, No abdominal Pain, No Hematochezia, No Melena Genitourinary : no irregular bleeding, No Dysuria, No Urinary Frequency, No Hematuria, No Urinary Incontinence, No Urgency, No Flank Pain, No Urinary Flow Changes, No Hesitancy Musculoskeletal : No joint pain, No Myalgias, No Joint Swelling Skin : No Skin Lesions, No rash Neuro : No Weakness, No Numbness, No Paresthesias, No Loss of Consciousness, No Dizziness, Complaining of headache and hypertension Psych : No Anxiety/Panic, No Depression, No SI/HI/AH/VH, No Social Issues, Heme/Lymph: No Bruising, No Bleeding,No Lymphadenopathy Endocrine : No Polyuria, No Polydipsia, No Temperature Intolerance [facility] Past Medical History Medical History Mild aortic valve stenosis LORE (obstructive sleep apnea) Chronic low back pain Lumbar spinal stenosis HTN (hypertension) Vitamin D deficiency HLD (hyperlipidemia) T2DM (type 2 diabetes mellitus) H. pylori infection CAD (coronary artery disease) Cyst (solitary) of breast Kidney calculi Arthritis Asthma HTN (hypertension) Diabetes Surgical History History of right-sided carotid endarterectomy (~11/2022) S/P aortogram History of esophagogastroduodenoscopy (EGD) Hx of colonoscopy History of breast surgery History of cardiac cath Family History Family History Mother Diabetes Liver cancer Social History Social History Household Members: Family and Children Household Members Other:: friend and adult son Housing: Apartment Are you a primary childcare administrator to a significant other at home: No Do you presently have visiting nurse or other home services: No Alcohol intake: never Comment: pt sleeping Patient Tobacco Use Status: Current everyday Tobacco user Tobacco use type: Cigarette Cigarette Packs Per Day: 1 Cigarettes Per Day: 2 Years Smoked: 40 Smoked in Last 30 Days: No e-Cigarette/Vaping Use: Never Used Second Hand Smoke Exposure: No Use of substances other than those prescribed or required for medical reasons: No Advance Directives: No Advance Directives Information Provided: No service: No Current occupational status: unemployed and disabled Physical Exam ED Vital Signs: Vital Signs - 24 hr 09/15/23 16:53 09/15/23 18:53 09/15/23 19:23 Temperature 97.7 F Pulse Rate 88 87 102 H Respiratory Rate 16 16 Blood Pressure 231/96 H 218/78 H 246/117 H Pulse Oximetry 98 97 Oxygen Delivery Method Room Air Room Air 09/15/23 19:57 Temperature 97.8 F Pulse Rate 80 Respiratory Rate 18 Blood Pressure 199/78 H Pulse Oximetry 97 Oxygen Delivery Method Room Air BMI result Body Mass Index 27.7 Const Other: Appearance: Alert. Oriented X3. No acute distress. Eyes: Pupils equal, round and reactive to light. ENT: Pharynx normal. Neck: Normal inspection. Neck supple. No lymph nodes noted. No crepitus CVS: Normal heart rate and rhythm. Pulses normal. Normal S1 and S2 Respiratory: No respiratory distress. Breath sounds normal. No Wheezing. No rales Abdomen: Soft and nontender. No rigidity. No distention. Skin: Skin warm and dry. Normal skin color. Normal skin turgor. Extremities: No lower extremity edema. No Lacerations. No Rash Neuro: Oriented X 3. No motor deficit. No sensory deficit. Moving all extremities. No slurred speech. CN 2 through 12 grossly intact Psych: calm, cooperative, normal affect Course Course Course Narrative: This is an RME performed by Helen Reynolds CNP: Additional HPI, ROS, PE not included below will be deferred to primary provider. Patient is a 62-year-old female who presents emergency department for evaluation of uncontrolled hypertension. She was seen in the emergency department early this morning with elevated blood pressure readings at home with associated headache back pain and nausea. Was thought to have chronic headaches triggering hypertension. Patient was feeling unwell after receiving Dilaudid ultimately decided to leave with her son before re-evaluation from MD. according to medical record Dr. Reed did attempt to contact the patient but was not able to speak with her. Patient and her daughter report that they received multiple phone calls today from the hospital expressing concern for her symptoms and possible stroke? patient then developed a headache, checked her blood pressure and it was elevated; 231/96. Medications Administered Discontinued Medications Generic Name Dose Route Start Last Admin Trade Name Nabila PRN Reason Stop Dose Admin Hydralazine HCl 20 mg 09/15/23 19:59 09/15/23 20:07 Hydralazine Hcl 20 Mg/Ml Vial IVPUSH 09/15/23 20:00 20 mg ONCE ONE Administration Protocol Labetalol HCl 20 mg 09/15/23 18:35 09/15/23 19:23 Labetalol Hcl 100 Mg/20 Ml Vial IVPUSH 09/15/23 18:36 20 mg ONCE ONE Administration Morphine Sulfate 4 mg 09/15/23 18:35 09/15/23 19:23 Morphine Sulfate 4 Mg/Ml Cartridge IVPUSH 09/15/23 18:36 4 mg ONCE ONE Administration Protocol Medical Decision Making Medical Decision Making MDM Narrative: - My interpretation of EKG: Normal sinus rhythm, heart rate 83, no ST segment depression or elevation, no T-wave inversion, QTC 448 - we have labs from earlier today. - Patient was given 20 mg IV push of labetalol and 4 mg of morphine sulfate, blood pressure slightly improved from 231/96 299/78. Patient was given hydralazine IV now. - I reviewed patient's results from renal arteriogram: Renal arteries are widely patent - patient's blood pressure improved to the 170s systolic. - as mentioned above, patient states that she does not know why it is written in her medical record that she has not compliant with medications. Patient adamant she takes her medications as prescribed. patient states that she does not like coming to the hospital every other day with her blood pressure elevated, and having severe headache. Patient states that she has young grandchildren and they are her priority, and she wants to be healthy to see them grow up. - I discussed the patient with Dr. Daniel from Cardiology. Patient comes back every day with hypertensive urgency, headache. we will double up her lisinopril, 40 mg b.i.d. and patient will be admitted and seen tomorrow by Cardiology. - Please do not discharge the patient without a Cardiology consult - I discussed the patient with сергей Martin admitted Differential Diagnosis Differential Diagnoses: The differential diagnosis associated with the presentation includes ( hypertensive urgency, hypertensive emergency, medication noncompliance) Admission/Observation Consideration of admission/observation: Escalation of care including admission/observation considered Consult Healthcare Provider Management of the patient was discussed with: Hospitalist and [employer] Professor Lab Data MDM Lab Attestation statement: I reviewed the patient's lab results. Labs: Lab Results 09/15/23 09/15/23 Range/Units 19:25 19:26 Urine Color Yellow Urine Appearance Clear Urine pH 7.0 (5.0-9.0) Ur Specific [place] <= 1.005 (1.005-1.025) Urine Protein 100 (2+) H (Neg-Trace) mg/dL Urine Glucose (UA) 250 H (Negative) mg/dL Urine Ketones Negative (Negative) mg/dL Urine Blood Trace H (Negative) Urine Nitrite Negative (Negative) Ur Leukocyte Esterase Moderate (2+) H (Negative) Urine RBC 6-10 H (0-2) /HPF Urine WBC 6-10 H (0-5) /HPF Ur Squamous Epith Cells 3-5 (0-2) /HPF Urine Bacteria None Seen (None Seen) Hyaline Casts 0-2 (0-2) /LPF Urine Opiates Screen Not Detected (Not Detect) Ur Buprenorphine Scrn Not Detected (Not Detect) ng/mL Ur Oxycodone Screen Not Detected (Not Detect) ng/mL Urine Methadone Screen Not Detected (Not Detect) ng/mL Urine Fentanyl Screen Not Detected (Not Detect) Ur Barbiturates Screen Not Detected (Not Detect) Ur Phencyclidine Scrn Not Detected (Not Detect) Ur Amphetamines Screen Not Detected (Not Detect) U Benzodiazepines Scrn Not Detected (Not Detect) Urine Cocaine Screen Not Detected (Not Detect) U Marijuana (THC) Screen Not Detected (Not Detect) Tests considered The following testing was considered but not selected: I considered getting a CT scan of the head. However, patient always comes with the same symptoms, has had multiple CT scans. Patient does not have any neurological deficits, there is no suspicion or indication that the patient may have a brain bleed secondary to hypertension. Critical Care Time Critical Care Time Critical Care Time: Yes Total Critical Care Time: 75 Attestation: I have personally provided critical care time. Time includes review of lab data, radiology results, discussion with consultants, and monitoring for potential decompensation. Intervention performed as documented. Discharge Plan Discharge Clinical Impression: Hypertensive urgency, Headache Patient Disposition: Admitted As Inpatient Prescriptions: No Action pioglitazone 15 mg tablet 15 mg PO DAILY 30 Days Qty: 30 11RF (DME) lancets [TRUEplus Lancets] 33 gauge misc See Rx Instructions .Route Qty: 100 11RF Rx Instructions: 4x daily metformin 1,000 mg Tablet 1,000 mg PO BID clopidogrel [Plavix] 75 mg tablet 75 mg PO DAILY Qty: 30 5RF fluticasone propionate 50 mcg/actuation [place],Suspension 2 spray INTRANASAL DAILY PRN (Reason: Allergy Symptoms) acetaminophen [Arthritis Pain Relief (acetam)] 650 mg Tablet Extended Release 650 mg PO Q8H PRN (Reason: Pain (Scale Score 1-3)) amitriptyline 50 mg tablet 50 mg PO BEDTIME baclofen 10 mg tablet 10 mg PO TID PRN (Reason: muscle spasm) hydroxyzine pamoate 25 mg capsule 25 mg PO Q6H PRN (Reason: anxiety) fluticasone propionate 110 mcg/actuation Hfa Aerosol Inhaler 2 puff INHALATION BID PRN (Reason: Shortness Of Breath Or Wheezing) nicotine (polacrilex) 2 mg Gum 2 mg buccal Q2H PRN (Reason: Nicotine Cravings) Qty: 100 0RF nicotine 21 mg/24 hr Patch 24 Hour 21 mg transdermal DAILY Qty: 30 0RF carvedilol [Coreg] 25 mg tablet 25 mg PO BID Qty: 60 0RF Rx Instructions: must administer with a meal/food hydralazine 25 mg tablet 25 mg PO TID Qty: 90 0RF amlodipine 10 mg Tablet 10 mg PO BEDTIME Qty: 30 0RF lisinopril 40 mg tablet 40 mg PO DAILY Qty: 30 0RF multivitamin Tablet 1 tab PO DAILY gabapentin 800 mg tablet 800 mg PO BID aspirin [Adult Low Dose Aspirin] 81 mg tablet,delayed release (DR/EC) 81 mg PO DAILY escitalopram oxalate [Lexapro] 20 mg tablet 20 mg PO DAILY@1800 mirtazapine 45 mg tablet 45 mg PO BEDTIME atorvastatin [Lipitor] 80 mg tablet 80 mg PO BEDTIME Tresiba FlexTouch U-100 100 unit/mL (3 mL) insulin pen 10 unit subcut DAILY (DME) FreeStyle Lite Strips Strip See Rx Instructions Not Applicable QID Qty: 10 Rx Instructions: As directed Asmanex HFA 100 mcg/actuation HFA aerosol inhaler 2 puff inhalation BID oxycodone 5 mg tablet 5 mg PO 5XD PRN (Reason: Severe Pain (Scale Score 7-10)) omeprazole 20 mg capsule,delayed release(DR/EC) 40 mg PO DAILY PRN (Reason: Heartburn) Print Language: Cameroonian
--- NOTE | 2023-09-15 19:06 | ECG_ITS ---
Test Reason : HYPERTENSION Blood Pressure : / mmHG Vent. Rate : 083 BPM Atrial Rate : 083 BPM P-R Int : 132 ms QRS Dur : 086 ms QT Int : 382 ms P-R-T Axes : 047 -05 122 degrees QTc Int : 448 ms Normal sinus rhythm Left ventricular hypertrophy with repolarization abnormality ( R in aVL ) Abnormal ECG When compared with ECG of 15-SEP-2023 00:31, Nonspecific T wave abnormality no longer evident in Inferior leads Referred By: Nguyen Carrera Electronically Signed By:Ghanshyam Daniel
[2023-09-15] MEDS: Labetalol HCL 100 MG/20 ML VIAL 20 MG IVPUSH (19:23)
[2023-09-15] MEDS: Morphine Sulfate 4 MG/ML CARTRIDGE IVPUSH (19:23)
[2023-09-15 19:34] LABS: Appearance Urine Clear; Color Urine Yellow; Glucose Urine UA 250 mg/dL (Negative); Leukocyte Esterase Urine Moderate (2+) (Negative); Nitrite Urine Negative (Negative); Specific Gravity - Urine <= 1.005 (1.005-1.025); UMIC TRIGGER UACC YES; Urine Blood Trace (Negative); Urine Ketones Negative (Negative); Urine Protein 100 (2+) mg/dL (Neg-Trace)
[2023-09-15 19:37] LABS: Bacteria Urine None Seen (None Seen); Hyaline Casts Urine 0-2 /LPF (0-2); UACC Culture Trigger YES
[2023-09-15 19:44] LABS: Amphetamine Screen Urine Not Detected (Not Detect); Barbiturates, Urine Not Detected (Not Detect); Benzodiazepines Screen Urine Not Detected (Not Detect); Buprenorphine Scr Not Detected (Not Detect); Cannabinoid Screen Urine Not Detected (Not Detect); Cocaine Screen Urine Not Detected (Not Detect); Fentanyl, urine Not Detected (Not Detect); Methadone Screen, Urine Not Detected (Not Detect); Opiate Screen Urine Not Detected (Not Detect); Oxycodone Screen Urine Not Detected (Not Detect); Phencyclidine Screen Urine Not Detected (Not Detect)
--- NOTE | 2023-09-15 19:58 | MHC.CM.ED ---
Dr. Carrera requested [facility] services for this patient regarding her BP and ? medication noncompliance. Pt was discharged from [facility] on 09/10 and was referred to [facility]. CM referred to NA with question of patient being active with their agency and needing medication management and chronic disease management. Pt should be active for SN. Agency has not responded in [facility] yet.
[2023-09-15] MEDS: hydrALAZINE HCl 20 MG/ML VIAL IVPUSH (20:07)
--- NOTE | 2023-09-15 20:26 | P.HPHOSP_ITS ---
History of Present Illness Date of Service: 09/15/23 Attending physician on admission: Bassam Mcgee Chief Complaint: Headache Pt is a 62-year-old female with a PMH significant for?HTN, CAD w/60-70% stenosis of RCA, PAD s/p left fem-pop bypass and subsequent angioplasty o fleft profunda femoris and left popliteal artery, insulin-dependent type 2 diabetes with neuropathy, and hx of osteomyelitis who presents to the ED with severe headache and high blood pressure. Pt was previously seen at in the emergency department for similar symptoms late last night. Blood pressure then was high as 244/106. Patient was given IV analgesics, hydralazine, and labetalol with improvement in BP to 162/81. After IV Dilaudid patient became dizzy and vomited but patient did not want to stay in the ED for observation until symptoms past and she stated she needed to get home. Patient reports symptoms of headache and high blood pressure returned this morning. Review of past medical records indicates patient has previously admitted to be noncompliant with her medications, however patient is adamant she takes all of her medications on time and as prescribed. She is unable to name her medications, but no she takes for in the morning, 2 in the afternoon, and 2 at night. Patient is currently on amlodipine 10 mg daily, lisinopril 40 mg daily, hydralazine 25 mg t.i.d., and carvedilol 25 mg b.i.d. also complains of some nausea, but no vomiting or abdominal pain. Also reports 1 episode of sharp and stabbing chest pain that last for approximately 10 minutes but has since resolved. No fever, chills. Denies shortness or breath or difficulty breathing. In the ED pt was hypertensive up to 246/117 and tachycardic up to 102. Labs were grossly unremarkable. No leukocytosis. Stable H&H. No significant electrolyte abnormalities. Renal function baseline. Troponin 3.7. UA likely negative for UTI. EKG demonstrated normal sinus rhythm without significant ST elevations or depressions. Pt was treated with labetalol 20 mg IV, hydralazine 20 mg IV, and morphine. Pt will be admitted to the hospital under observation for treatment and further evaluation of symptomatic hypertensive urgency. Review of Systems 2 Review of Systems: Severe headache Nausea but no vomiting Elevated blood pressure 10 minute episode of sharp, stabbing dorie st pain that has since resolved Denies fever, chills, abdominal pain No SOB or [facility] Medical History Mild aortic valve stenosis LORE (obstructive sleep apnea) Chronic low back pain Lumbar spinal stenosis HTN (hypertension) Vitamin D deficiency HLD (hyperlipidemia) T2DM (type 2 diabetes mellitus) H. pylori infection CAD (coronary artery disease) Cyst (solitary) of breast Kidney calculi Arthritis Asthma HTN (hypertension) Diabetes Family History Mother Diabetes Liver cancer Surgical History History of right-sided carotid endarterectomy (~11/2022) S/P aortogram History of esophagogastroduodenoscopy (EGD) Hx of colonoscopy History of breast surgery History of cardiac cath Social History Household Members: Family and Children Household Members Other:: friend and adult son Housing: Apartment Are you a primary physician primary care sports medicine to a significant other at home: No Do you presently have visiting nurse or other home services: No Alcohol intake: never Comment: pt sleeping Patient Tobacco Use Status: Never used Tobacco Tobacco use type: Cigarette Cigarette Packs Per Day: 1 Cigarettes Per Day: 2 Years Smoked: 40 Smoked in Last 30 Days: No e-Cigarette/Vaping Use: Never Used Second Hand Smoke Exposure: No Use of substances other than those prescribed or required for medical reasons: No Advance Directives: No Advance Directives Information Provided: No Nutrition Risks: No Nutritional Risk service: No Current occupational status: unemployed and disabled Meds Allergies Allergy/AdvReac Type Severity Reaction Status Date / Time latex [LATEX] Allergy Severe RASH Verified 09/15/23 17:02 naproxen [From NAPROSYN] AdvReac Intermediate TACHYCARDIA Verified 09/15/23 17:02 Active Medications: Current Medications Acetaminophen (Acetaminophen 325 Mg Tablet) 650 mg PO Q6H PRN PRN Reason: Pain, Mild (Pain Scale 1-3), fever or headache Calcium Carbonate (Calcium Carbonate 750 Mg Tab.Chew) 750 mg PO Q4H PRN PRN Reason: Heartburn Enoxaparin Sodium (Enoxaparin Sodium 40 Mg/0.4 Ml Syringe) 40 mg SUBCUT Q24H [facility] Magnesium Hydroxide (Milk Of Magnesia 30 Ml Oral.Susp) 30 ml PO DAILY PRN PRN Reason: Constipation Melatonin (Melatonin 3 Mg Tablet) 6 mg PO BEDTIME PRN PRN Reason: Insomnia Ondansetron HCl (Ondansetron Hcl 4 Mg/2 Ml Vial) 4 mg IVPUSH Q8H PRN PRN Reason: Nausea and Vomiting Sodium Chloride (0.9 % Sodium Chloride Flush 3 Ml Syringe) 3 ml IVFLUSH QSHIFT [facility] Home Medications ?Medication ?Instructions ?Recorded ?Confirmed ?Last Taken ?Type metformin 1,000 mg tablet 1,000 mg PO BID 12/22/19 09/11/23 09/15/23 06:30 History aspirin 81 mg tablet,delayed 81 mg PO DAILY 01/02/20 09/11/23 09/15/23 06:30 History release (Adult Low Dose Aspirin) atorvastatin 80 mg tablet (Lipitor) 80 mg PO BEDTIME 01/02/20 09/11/23 09/14/23 History escitalopram oxalate 20 mg tablet 20 mg PO DAILY@1800 01/02/20 09/11/23 09/15/23 History (Lexapro) gabapentin 800 mg tablet 800 mg PO BID 01/02/20 09/11/23 09/15/23 06:30 History mirtazapine 45 mg tablet 45 mg PO BEDTIME 01/02/20 09/11/23 09/14/23 History multivitamin 1 tab PO DAILY 01/02/20 09/11/23 09/15/23 06:30 History acetaminophen 650 mg 650 mg PO Q8H PRN Pain (Scale 01/16/21 09/11/23 Unknown History tablet,extended release (Arthritis Score 1-3) Pain Relief (acetaminophen) ER) fluticasone propionate 50 2 spray intranasal DAILY PRN 01/16/21 09/11/23 11/27/22 History mcg/actuation nasal Allergy Symptoms spray,suspension blood sugar diagnostic (FreeStyle #10 ea 03/30/21 08/21/23 Unknown History Lite Strips) insulin degludec 100 unit/mL (3 10 unit subcut DAILY 10/03/22 09/11/23 09/11/23 History mL) subcutaneous pen (Tresiba FlexTouch U-100 insulin) amitriptyline 50 mg tablet 50 mg PO BEDTIME 11/07/22 09/11/23 09/14/23 History mometasone 100 mcg/actuation HFA 2 puff inhalation BID 06/12/23 09/11/23 09/15/23 06:30 History aerosol inhaler (Asmanex HFA) oxycodone 5 mg tablet 5 mg PO 5XD PRN Severe Pain (Scale 06/12/23 09/11/23 09/15/23 06:30 History Score 7-10) omeprazole 20 mg capsule,delayed 40 mg PO DAILY PRN Heartburn 07/19/23 09/11/23 09/15/23 06:30 History release baclofen 10 mg tablet 10 mg PO TID PRN muscle spasm 07/28/23 09/11/23 Unknown History hydroxyzine pamoate 25 mg capsule 25 mg PO Q6H PRN anxiety 07/28/23 09/11/23 Unknown History fluticasone propionate 110 2 puff inhalation BID PRN 09/11/23 09/11/23 Unknown History mcg/actuation HFA aerosol inhaler Shortness Of Breath Or Wheezing Physical Exam 2 Vital Signs and Narrative: Vital Signs: Last Vital Signs Temp 97.8 F 09/15/23 19:57 Pulse 80 09/15/23 19:57 Resp 18 09/15/23 19:57 BP 199/78 H 09/15/23 19:57 Pulse Ox 97 09/15/23 19:57 O2 Del Method Room Air 09/15/23 19:57 BMI result Body Mass Index 27.7 General: AOx3, no acute distress Resp: CTA bilaterally CVS: S1, S2, RRR, 3/6 systolic heart murmur heard at right sternal border GI: +BS, NT, no distention Skin: Warm, dry Neuro: Cranial nerves II-XII grossly intact bilaterally. Motor grossly intact bilaterally Extremities: No edema Psych: Appropriate affect Results Labs 09/15/23 21:41 Labs: Laboratory Results - last 24 hr 09/15/23 09/15/23 19:25 19:26 Urine Color Yellow Urine Appearance Clear Urine pH 7.0 Ur Specific [place] <= 1.005 Urine Protein 100 (2+) H Urine Glucose (UA) 250 H Urine Ketones Negative Urine Blood Trace H Urine Nitrite Negative Ur Leukocyte Esterase Moderate (2+) H Urine RBC 6-10 H Urine WBC 6-10 H Ur Squamous Epith Cells 3-5 Urine Bacteria None Seen Hyaline Casts 0-2 Urine Opiates Screen Not Detected Ur Buprenorphine Scrn Not Detected Ur Oxycodone Screen Not Detected Urine Methadone Screen Not Detected Urine Fentanyl Screen Not Detected Ur Barbiturates Screen Not Detected Ur Phencyclidine Scrn Not Detected Ur Amphetamines Screen Not Detected U Benzodiazepines Scrn Not Detected Urine Cocaine Screen Not Detected U Marijuana (THC) Screen Not Detected Assessment and Plan (1) Hypertensive urgency: Status: Acute Plan Pt is a 62-year-old female with a PMH significant for?HTN, CAD w/60-70% stenosis of RCA, PAD s/p left fem-pop bypass and subsequent angioplasty o fleft profunda femoris and left popliteal artery, insulin-dependent type 2 diabetes with neuropathy, and hx of osteomyelitis who presents to the ED with severe headache and high blood pressure. Pt was previously seen at in the emergency department for similar symptoms late last night. Pt will be admitted to the hospital under observation for treatment and further evaluation of symptomatic hypertensive urgency. Symptomatic hypertensive urgency Patient with severe headache, BP as high as 246/117 Unclear etiology: Patient previously admitted to noncompliance with home meds, currently states has always been compliant Currently taking amlodipine 10 mg daily, carvedilol 25 mg b.i.d., hydralazine 25 mg t.i.d., and lisinopril 40 mg daily Patient given labetalol 20 mg IV and hydralazine 20 mg IV in the ED Will increase lisinopril to 80 mg daily Analgesics for pain management Cardiology consult Monitor of telemetry Peripheral vascular disease Continue statin, Plavix HLD Continue statin Insulin-dependent type 2 diabetes Sliding-scale insulin, Lantus Diabetic diet GERD PPI Mood disorder Continue mood stabilizers Full Code Attending:?Dr. Mcgee DVT Prophylaxis: Lovenox Med Rec pending Patient will be admitted to hospital under observation for treatment and further evaluation of symptomatic hypertensive urgency. Patient will require close monitoring of BP, careful and slow reduction in BP, and specialist consultation with Cardiology. Quality Stroke Does the patient have a stroke diagnosis?: No VTE Prior VTE?: No VTE Risk Level:: Medical - moderate - high VTE Device Contraindication: Treatment Not Indicated VTE Drug Contraindication: N/A - Med Ordered
[2023-09-15] MEDS: Acetaminophen 325 MG TABLET 650 MG PO (20:55)
[2023-09-15] MEDS: Enoxaparin Sodium 40 MG/0.4 ML SYRINGE SUBCUT (20:56)
--- NOTE | 2023-09-15 21:19 | PHA.MEDREC ---
Addendum entered by Ihsan Tinsley [facility] 09/15/23 22:10: med rec double checked by [facility] Original Note: Pharmacy Consult ? Medication Reconciliation Pharmacy has completed the medication reconciliation. Confirmed medications with patient visitor at bedside who was able to interpret and discharge packet from 09/11/23. The patient states she has not used her Tresiba Insulin since Monday due to her running out of [place]. The patient also never started using the Nicotine Gum 2mg or the Nicotine patches.
[2023-09-15 22:05] LABS: Estimated Glomerular Filt Rate > 60
[2023-09-15] MEDS: traMADoL HCL 50 MG TABLET PO (23:48)
[2023-09-16] VITALS (14 sets, daily range): BP systolic 130–190; BP diastolic 57–79; PULSE 57–75; RESP 18–20; TEMP 36.1–36.7; O2SAT 94–99; BMI 28.3
--- NOTE | 2023-09-16 00:07 | MHC.EDTECH ---
Pt moved to hospital bed for comfort. Call konx within reach.
--- NOTE | 2023-09-16 00:26 | PC.NURSE ---
Mediated pt per mar, pt placed in hospital bed for comfort, no respiratory distress or chest pain at this time. pt resting in bed
[2023-09-16] MEDS: 0.9 % Sodium Chloride Flush 3 ML SYRINGE IVFLUSH ×3 (01:21→15:21)
[2023-09-16] MEDS: Melatonin 3 MG TABLET 6 MG PO (02:26)
[2023-09-16] MEDS: Labetalol HCL 100 MG/20 ML VIAL 10 MG IVPUSH (03:13)
[2023-09-16] MEDS: traMADoL HCL 50 MG TABLET PO (03:14)
[2023-09-16 06:27] LABS: Hematocrit 29.1 % (37.0-47.0); Hemoglobin 9.8 g/dl (12.0-16.0); Mean Corpuscular HGB Conc 33.7 g/dl (31.0-35.0); Mean Corpuscular Hemoglobin 30.2 pg (27.0-33.0); Mean Corpuscular Volume 89.5 fL (80.0-98.0); Mean Platelet Volume 9.4 fL (9.4-12.3); Platelet Count 240 X10*3/uL (160-400); Red Blood Count 3.25 X10*6/uL (4.20-5.50); Red Cell Distribution Width 13.3 % (11.0-16.0); White Blood Count 5.6 X10*3/uL (4.8-10.8)
[2023-09-16 06:48] LABS: Anion Gap 10 (12-20); Blood Urea Nitrogen 13 mg/dL (9-16); Calcium 8.8 mg/dL (8.4-10.2); Carbon Dioxide 26 mmol/L (22-29); Chloride 106 mmol/L (96-108); Creatinine Clr Calc Pharmacy 58.1; Estimated Glomerular Filt Rate > 60; Glucose Random 196 mg/dL (60-115); Potassium 3.7 mmol/L (3.3-5.1); Sodium 138 mmol/L (135-145)
[2023-09-16 07:29] LABS: Glucose, Whole Blood 182 mg/dL (60-115)
[2023-09-16] MEDS: Acetaminophen 325 MG TABLET 650 MG PO ×2 (08:11→15:20)
[2023-09-16] MEDS: Insulin Lispro 100 UNIT/ML 3 ML VIAL SUBCUT ×2 (08:11→20:28)
--- NOTE | 2023-09-16 08:54 | HO.PM.IMPN ---
Subjective Subjective Date of Service: 09/16/23 Interval History: headache improved Physical Exam Vital Signs: Vital Signs: Last Vital Signs Temp 98.1 F 09/16/23 07:16 Pulse 71 09/16/23 07:16 Resp 18 09/16/23 07:16 BP 130/70 09/16/23 08:13 Pulse Ox 98 09/16/23 07:16 O2 Del Method Room Air 09/16/23 07:16 BMI result Body Mass Index 28.3 General: AO X 3, no acute distress Resp: CTA bilateral, no accessory muscles used CVS: S1,S2,RRR GI: soft, non tender, non distended Neuro: motor grossly intact, alert Psych: appropriate affect, appropriate insight Objective Data Active Medications Acetaminophen (Acetaminophen 325 Mg Tablet) 650 mg PO Q6H PRN PRN Reason: Pain, Mild (Pain Scale 1-3), fever or headache Last Admin: 09/16/23 08:11 Dose: 650 mg Documented By: DAVID Calcium Carbonate (Calcium Carbonate 750 Mg Tab.Chew) 750 mg PO Q4H PRN PRN Reason: Heartburn Enoxaparin Sodium (Enoxaparin Sodium 40 Mg/0.4 Ml Syringe) 40 mg SUBCUT Q24H [facility] Last Admin: 09/15/23 20:56 Dose: 40 mg Documented By: SWAPNIL Glucose (Glucose Gel 15 Gm Gel..Gram.) 15 gm PO Q15M PRN; Protocol PRN Reason: per Hypoglycemia Standing Ord. Dextrose (D10) 250 mls @ 750 mls/hr IV Q15M PRN; Protocol PRN Reason: per Hypoglycemia Standing Ord. Insulin Human Lispro (Insulin Lispro 100 Unit/Ml 3 Ml Vial) 0 unit SUBCUT QIDACHS [facility]; Protocol Last Admin: 09/16/23 08:11 Dose: 2 unit Documented By: DAVID Magnesium Hydroxide (Milk Of Magnesia 30 Ml Oral.Susp) 30 ml PO DAILY PRN PRN Reason: Constipation Melatonin (Melatonin 3 Mg Tablet) 6 mg PO BEDTIME PRN PRN Reason: Insomnia Last Admin: 09/16/23 02:26 Dose: 6 mg Documented By: TAYLER Ondansetron HCl (Ondansetron Hcl 4 Mg/2 Ml Vial) 4 mg IVPUSH Q8H PRN PRN Reason: Nausea and Vomiting Sodium Chloride (0.9 % Sodium Chloride Flush 3 Ml Syringe) 3 ml IVFLUSH QSHIFT [facility] Last Admin: 09/16/23 08:12 Dose: 3 ml Documented By: DAVID Labs 09/16/23 06:08 09/16/23 06:08 Labs: Laboratory Results - last 24 hr 09/15/23 09/15/23 09/15/23 19:25 19:26 21:41 MCV MCH MCHC RDW Plt Count MPV Absolute Nucleated RBC Nucleated RBC % (auto) Hold Purple Top SEE NOTE Anion Gap Estim Creat Clear Calc 61.0 Estimated GFR > 60 POC Glucose Random Glucose Calcium Hold Yellow Top See Note Urine Color Yellow Urine Appearance Clear Urine pH 7.0 Ur Specific [place] <= 1.005 Urine Protein 100 (2+) H Urine Glucose (UA) 250 H Urine Ketones Negative Urine Blood Trace H Urine Nitrite Negative Ur Leukocyte Esterase Moderate (2+) H Urine RBC 6-10 H Urine WBC 6-10 H Ur Squamous Epith Cells 3-5 Urine Bacteria None Seen Hyaline Casts 0-2 Urine Opiates Screen Not Detected Ur Buprenorphine Scrn Not Detected Ur Oxycodone Screen Not Detected Urine Methadone Screen Not Detected Urine Fentanyl Screen Not Detected Ur Barbiturates Screen Not Detected Ur Phencyclidine Scrn Not Detected Ur Amphetamines Screen Not Detected U Benzodiazepines Scrn Not Detected Urine Cocaine Screen Not Detected U Marijuana (THC) Screen Not Detected 09/16/23 09/16/23 06:08 07:12 MCV 89.5 MCH 30.2 MCHC 33.7 RDW 13.3 Plt Count 240 MPV 9.4 Absolute Nucleated RBC 0.000 Nucleated RBC % (auto) 0.0 Hold Purple Top Anion Gap 10 L Estim Creat Clear Calc 58.1 Estimated GFR > 60 POC Glucose 182 H Random Glucose 196 H Calcium 8.8 D Hold Yellow Top Urine Color Urine Appearance Urine pH Ur Specific [place] Urine Protein Urine Glucose (UA) Urine Ketones Urine Blood Urine Nitrite Ur Leukocyte Esterase Urine RBC Urine WBC Ur Squamous Epith Cells Urine Bacteria Hyaline Casts Urine Opiates Screen Ur Buprenorphine Scrn Ur Oxycodone Screen Urine Methadone Screen Urine Fentanyl Screen Ur Barbiturates Screen Ur Phencyclidine Scrn Ur Amphetamines Screen U Benzodiazepines Scrn Urine Cocaine Screen U Marijuana (THC) Screen Assessment and Plan (1) Hypertensive urgency: Status: Acute Plan 62F PMH htn, cad, pvd, dm, presented with headache and severe htn hypertensive urgency now with bp lower than ideal holding po meds this am, monitor, goal sbp around 160-180 nephro eval pvd, cad dapl, statin dm basal bolus insulin dvt prophylaix - lovenox full code reason for continued hospitalization:bp monitoring Quality Stroke Does the patient have a stroke diagnosis?: No VTE Prior VTE?: No VTE Risk Level:: Medical - moderate - high VTE Device Contraindication: Treatment Not Indicated VTE Drug Contraindication: N/A - Med Ordered
[2023-09-16] MEDS: Clopidogrel Bisulfate 75 MG TABLET PO (09:15)
[2023-09-16] MEDS: Aspirin Enteric Coated 81 MG TABLET.DR PO (09:15)
[2023-09-16] MEDS: ondansetron HCL 4 MG/2 ML VIAL IVPUSH (12:02)
[2023-09-16 12:20] LABS: Glucose, Whole Blood 172 mg/dL (60-115)
[2023-09-16] MEDS: hydrALAZINE HCl 25 MG TABLET PO ×2 (15:20→20:27)
[2023-09-16 15:41] LABS: Glucose, Whole Blood 136 mg/dL (60-115)
--- NOTE | 2023-09-16 15:58 | MHC.CM.PN ---
CM MET WITH PT WITH A [employer]ICE [employer] CONTACT PT REPORTS SHE LIVES AT HOME WITH HER SON AND IS INDEPENDENT AT SHE IS CURRENTLY ACTIVE WITH [facility] AND HAS NO DME HCP ON FILE PCP: [facility] OBSERVATION NOTICE DELIVERED DCP: HOME, RESUME [facility] VIA PRIVATE TRANSPORT
[2023-09-16] MEDS: oxyCODONE HCl Immed Release 5 MG TABLET PO (17:43)
[2023-09-16] MEDS: Escitalopram Oxalate 20 MG TABLET PO (17:44)
[2023-09-16 19:47] LABS: Glucose, Whole Blood 184 mg/dL (60-115)
[2023-09-16] MEDS: Mirtazapine 15 MG TABLET 45 MG PO (20:26)
[2023-09-16] MEDS: Amitriptyline HCl 50 MG TABLET PO (20:26)
[2023-09-16] MEDS: Gabapentin 400 MG CAPSULE 800 MG PO (20:26)
[2023-09-16] MEDS: Enoxaparin Sodium 40 MG/0.4 ML SYRINGE SUBCUT (20:26)
[2023-09-16] MEDS: amLODIPine Besylate 10 MG TABLET PO (20:26)
[2023-09-16] MEDS: Baclofen 10 MG TABLET PO (20:27)
[2023-09-16] MEDS: carvediloL 25 MG TABLET PO (20:27)
[2023-09-16] MEDS: Atorvastatin Calcium 80 MG TABLET PO (20:27)
[2023-09-17 04:00] VITALS: BP 166/72; PULSE 64; RESP 18; TEMP 36.2; O2SAT 96
[2023-09-17 07:14] VITALS: BP 180/70; PULSE 58; RESP 20; TEMP 36.4; O2SAT 96
[2023-09-17] MEDS: Aspirin Enteric Coated 81 MG TABLET.DR PO (07:31)
[2023-09-17] MEDS: hydrALAZINE HCl 25 MG TABLET PO ×3 (07:31→21:46)
[2023-09-17] MEDS: Gabapentin 400 MG CAPSULE 800 MG PO ×2 (07:31→21:46)
[2023-09-17] MEDS: Clopidogrel Bisulfate 75 MG TABLET PO (07:32)
[2023-09-17] MEDS: carvediloL 25 MG TABLET PO (07:32)
[2023-09-17] MEDS: Multivitamin TABLET 1 TAB PO (07:32)
[2023-09-17] MEDS: lisinopriL 40 MG TABLET PO (07:32)
[2023-09-17] MEDS: 0.9 % Sodium Chloride Flush 3 ML SYRINGE IVFLUSH ×3 (07:33→21:47)
[2023-09-17 07:39] LABS: Glucose, Whole Blood 136 mg/dL (60-115)
--- NOTE | 2023-09-17 08:38 | P.PNIM_ITS ---
Subjective Subjective Date of Service: 09/17/23 Interval History: headache improved Physical Exam 2 Vital Signs: Vital Signs: Last Vital Signs Temp 97.6 F 09/17/23 07:14 Pulse 58 09/17/23 07:14 Resp 20 09/17/23 07:14 BP 180/70 H 09/17/23 07:14 Pulse Ox 96 09/17/23 07:14 O2 Del Method Room Air 09/17/23 07:14 BMI result Body Mass Index 28.3 General: AO X 3, no acute distress Resp: CTA bilateral, no accessory muscles used CVS: S1,S2,RRR GI: soft, non tender, non distended Neuro: motor grossly intact, alert Psych: appropriate affect, appropriate insight Objective Data Active Medications Acetaminophen (Acetaminophen 325 Mg Tablet) 650 mg PO Q6H PRN PRN Reason: Pain, Mild (Pain Scale 1-3), fever or headache Last Admin: 09/16/23 15:20 Dose: 650 mg Documented By: DAVID Amitriptyline HCl (Amitriptyline Hcl 50 Mg Tablet) 50 mg PO BEDTIME [facility] Last Admin: 09/16/23 20:26 Dose: 50 mg Documented By: TAYLER Amlodipine Besylate (Amlodipine Besylate 10 Mg Tablet) 10 mg PO BEDTIME [facility]; Protocol Last Admin: 09/16/23 20:26 Dose: 10 mg Documented By: TAYLER Aspirin (Aspirin Enteric Coated 81 Mg Tablet.) 81 mg PO DAILY [facility] Last Admin: 09/17/23 07:31 Dose: 81 mg Documented By: MATEUSZ Atorvastatin Calcium (Atorvastatin Calcium 80 Mg Tablet) 80 mg PO BEDTIME [facility] Last Admin: 09/16/23 20:27 Dose: 80 mg Documented By: TAYLER Baclofen (Baclofen 10 Mg Tablet) 10 mg PO TID PRN PRN Reason: muscle spasm Last Admin: 09/16/23 20:27 Dose: 10 mg Documented By: TAYLER Calcium Carbonate (Calcium Carbonate 750 Mg Tab.Chew) 750 mg PO Q4H PRN PRN Reason: Heartburn Carvedilol (Carvedilol 25 Mg Tablet) 25 mg PO BID [facility]; Protocol Last Admin: 09/17/23 07:32 Dose: 25 mg Documented By: MATEUSZ Clopidogrel Bisulfate (Clopidogrel Bisulfate 75 Mg Tablet) 75 mg PO DAILY [facility] Last Admin: 09/17/23 07:32 Dose: 75 mg Documented By: MATEUSZ Enoxaparin Sodium (Enoxaparin Sodium 40 Mg/0.4 Ml Syringe) 40 mg SUBCUT Q24H [facility] Last Admin: 09/16/23 20:26 Dose: 40 mg Documented By: TAYLER Escitalopram Oxalate (Escitalopram Oxalate 20 Mg Tablet) 20 mg PO DAILY@1800 [facility] Last Admin: 09/16/23 17:44 Dose: 20 mg Documented By: DAVID Fluticasone Propionate (Fluticasone Propionate 100 Mcg Blst.W.Dev) 1 puff INHALE RBID PRN PRN Reason: Shortness Of Breath Or Wheezing Gabapentin (Gabapentin 400 Mg Capsule) 800 mg PO BID [facility] Last Admin: 09/17/23 07:31 Dose: 800 mg Documented By: MATEUSZ Glucose (Glucose Gel 15 Gm Gel..Gram.) 15 gm PO Q15M PRN; Protocol PRN Reason: per Hypoglycemia Standing Ord. Hydralazine HCl (Hydralazine Hcl 25 Mg Tablet) 25 mg PO TID [facility]; Protocol Last Admin: 09/17/23 07:31 Dose: 25 mg Documented By: MATEUSZ Hydroxyzine HCl (Hydroxyzine Hcl 25 Mg Tablet) 25 mg PO Q6H PRN PRN Reason: anxiety Dextrose (D10) 250 mls @ 750 mls/hr IV Q15M PRN; Protocol PRN Reason: per Hypoglycemia Standing Ord. Insulin Human Lispro (Insulin Lispro 100 Unit/Ml 3 Ml Vial) 0 unit SUBCUT QIDACHS [facility]; Protocol Last Admin: 09/17/23 07:37 Dose: Not Given Documented By: MATEUSZ Non-Admin Reason: No Insulin Coverage Lisinopril (Lisinopril 40 Mg Tablet) 40 mg PO DAILY [facility]; Protocol Last Admin: 09/17/23 07:32 Dose: 40 mg Documented By: MATEUSZ Magnesium Hydroxide (Milk Of Magnesia 30 Ml Oral.Susp) 30 ml PO DAILY PRN PRN Reason: Constipation Melatonin (Melatonin 3 Mg Tablet) 6 mg PO BEDTIME PRN PRN Reason: Insomnia Last Admin: 09/16/23 02:26 Dose: 6 mg Documented By: TAYLER Mirtazapine (Mirtazapine 15 Mg Tablet) 45 mg PO BEDTIME [facility] Last Admin: 09/16/23 20:26 Dose: 45 mg Documented By: TAYLER Multivitamins/Vitamin C (Multivitamin Tablet) 1 tab PO DAILY [facility] Last Admin: 09/17/23 07:32 Dose: 1 tab Documented By: MATEUSZ Ondansetron HCl (Ondansetron Hcl 4 Mg/2 Ml Vial) 4 mg IVPUSH Q8H PRN PRN Reason: Nausea and Vomiting Last Admin: 09/16/23 12:02 Dose: 4 mg Documented By: DAVID Oxycodone HCl (Oxycodone Hcl Immed Release 5 Mg Tablet) 5 mg PO 5XD PRN PRN Reason: Severe Pain (Scale Score 7-10) Last Admin: 09/16/23 17:43 Dose: 5 mg Documented By: DAVID Sodium Chloride (0.9 % Sodium Chloride Flush 3 Ml Syringe) 3 ml IVFLUSH QSHIFT [facility] Last Admin: 09/17/23 07:33 Dose: 3 ml Documented By: MATEUSZ Labs 09/16/23 06:08 09/16/23 06:08 Labs: Laboratory Results - last 24 hr 09/16/23 09/16/23 09/16/23 12:14 15:18 19:38 POC Glucose 172 H 136 H 184 H 09/17/23 07:36 POC Glucose 136 H Microbiology Microbiology Results: Microbiology 09/15/23 19:37 Urine Culture - Preliminary Urine clean catch - Clean Catch Midstream No growth to date. Assessment and Plan (1) Hypertensive urgency: Status: Acute Plan 62F PMH htn, cad, pvd, dm, presented with headache and severe htn hypertensive urgency bp still fluctuating restarting home meds of coreg, hydralazine, amlodipine, lisinopril follow up nephro pvd, cad dapl, statin dm basal bolus insulin dvt prophylaix - lovenox full code reason for continued hospitalization:bp monitoring Quality Stroke Does the patient have a stroke diagnosis?: No VTE Prior VTE?: No VTE Risk Level:: Medical - moderate - high VTE Device Contraindication: Treatment Not Indicated VTE Drug Contraindication: N/A - Med Ordered
[2023-09-17 10:54] VITALS: BP 109/53; PULSE 55; RESP 20; TEMP 36.4; O2SAT 93
[2023-09-17 11:32] LABS: Glucose, Whole Blood 98 mg/dL (60-115)
[2023-09-17 14:56] VITALS: BP 124/58; PULSE 61; RESP 20; TEMP 36.7; O2SAT 96
[2023-09-17] MEDS: Insulin Lispro 100 UNIT/ML 3 ML VIAL SUBCUT ×2 (16:01→21:46)
[2023-09-17 16:04] LABS: Glucose, Whole Blood 205 mg/dL (60-115)
[2023-09-17] MEDS: Acetaminophen 325 MG TABLET 650 MG PO ×2 (16:05→22:10)
[2023-09-17] MEDS: Escitalopram Oxalate 20 MG TABLET PO (18:11)
[2023-09-17 20:00] VITALS: BP 145/65; PULSE 62; RESP 18; TEMP 36.6; O2SAT 99
[2023-09-17 21:40] LABS: Glucose, Whole Blood 223 mg/dL (60-115)
[2023-09-17] MEDS: Mirtazapine 15 MG TABLET 45 MG PO (21:46)
[2023-09-17] MEDS: Amitriptyline HCl 50 MG TABLET PO (21:46)
[2023-09-17] MEDS: Atorvastatin Calcium 80 MG TABLET PO (21:46)
[2023-09-17] MEDS: amLODIPine Besylate 10 MG TABLET PO (21:47)
[2023-09-17] MEDS: Enoxaparin Sodium 40 MG/0.4 ML SYRINGE SUBCUT (21:48)
[2023-09-17 23:22] VITALS: BP 145/67; PULSE 62; RESP 18; TEMP 36.4; O2SAT 97
[2023-09-18 04:00] VITALS: BP 149/65; PULSE 60; RESP 18; TEMP 36.1; O2SAT 95
[2023-09-18 06:58] LABS: Glucose, Whole Blood 108 mg/dL (60-115)
[2023-09-18 07:05] VITALS: BP 170/76; PULSE 62; RESP 18; TEMP 36.2; O2SAT 96
--- NOTE | 2023-09-18 08:41 | PM.DS ---
DS: Providers Provider Date of Service: 09/18/23 Date of admission: 09/15/23 20:18 Primary care physician: Radha Jamison DO Consults: 09/16/23 07:47 Consult to Nephrology Routine Consulting Provider: [facility] Reason for consultation: hypetensive urgency DS: Diagnosis Discharge Diagnosis (1) Hypertensive urgency: Status: Acute DS: Summary Hospital Course Hospital Course: from initial hpi: 62-year-old female with a PMH significant for?HTN, CAD w/60-70% stenosis of RCA, PAD s/p left fem-pop bypass and subsequent angioplasty o fleft profunda femoris and left popliteal artery, insulin-dependent type 2 diabetes with neuropathy, and hx of osteomyelitis who presents to the ED with severe headache and high blood pressure. Pt was previously seen at in the emergency department for similar symptoms late last night. Blood pressure then was high as 244/106. Patient was given IV analgesics, hydralazine, and labetalol with improvement in BP to 162/81. After IV Dilaudid patient became dizzy and vomited but patient did not want to stay in the ED for observation until symptoms past and she stated she needed to get home. Patient reports symptoms of headache and high blood pressure returned this morning. Review of past medical records indicates patient has previously admitted to be noncompliant with her medications, however patient is adamant she takes all of her medications on time and as prescribed. She is unable to name her medications, but no she takes for in the morning, 2 in the afternoon, and 2 at night. Patient is currently on amlodipine 10 mg daily, lisinopril 40 mg daily, hydralazine 25 mg t.i.d., and carvedilol 25 mg b.i.d. also complains of some nausea, but no vomiting or abdominal pain. Also reports 1 episode of sharp and stabbing chest pain that last for approximately 10 minutes but has since resolved. No fever, chills. Denies shortness or breath or difficulty breathing. In the ED pt was hypertensive up to 246/117 and tachycardic up to 102. Labs were grossly unremarkable. No leukocytosis. Stable H&H. No significant electrolyte abnormalities. Renal function baseline. Troponin 3.7. UA likely negative for UTI. EKG demonstrated normal sinus rhythm without significant ST elevations or depressions. Pt was treated with labetalol 20 mg IV, hydralazine 20 mg IV, and morphine. Pt will be admitted to the hospital under observation for treatment and further evaluation of symptomatic hypertensive urgency. hospital course: Patient was admitted for hypertensive urgency. Possibly due to poor compliance. She was initially treated with IV hydralazine and labetalol. Blood pressure then went lower than ideal. She was continued to be monitored and blood pressure then increased and was restarted on her home medications of carvedilol, hydralazine, amlodipine, lisinopril. Blood pressure then became better controlled. Headache resolved. Compliance and medication was encouraged. Patient was seen by nephro who recommneded changed amlodipine to nifedipine 60mg and will follow up outpatient for ongoing blood pressure management. For peripheral vascular disease and coronary disease was continued on dual antiplatelet and statin. For diabetes was continued on basal bolus insulin. Time Attestation Discharge Coordination Time (in mins): 33 Quality: Safe Use of Opioids Does Pt have an Active Cancer Diagnosis on the Problem List?: No Quality: Stroke Does the patient have a stroke diagnosis?: No Physical Exam Vital Signs: Vital Signs: Last Vital Signs Temp 97.2 F 09/18/23 07:05 Pulse 62 09/18/23 07:05 Resp 18 09/18/23 07:05 BP 170/76 H 09/18/23 07:05 Pulse Ox 96 09/18/23 07:05 O2 Del Method Room Air 09/18/23 07:05 BMI result Body Mass Index 28.3 General: AO X 3, no acute distress Resp: CTA bilateral, no accessory muscles used CVS: S1,S2,RRR GI: soft, non tender, non distended Neuro: motor grossly intact, alert Psych: appropriate affect, appropriate insight DS: Data Data Completed and Pending Completed studies during hospitalization [Text1]: Procedures Extirpation of Matter from Left Femoral Artery, Open Approach (05/09/20) Extirpation of Matter from Left Popliteal Artery, Open Approach (05/09/20) Extirpation of Matter from Right Common Carotid Artery, Open Approach (11/28/22) Fluoroscopy of Aorta and Bilateral Lower Extremity Arteries (05/09/20) Insertion of Infusion Device into Superior Vena Cava, Percutaneous Approach (05/09/20) Supplement Left Femoral Artery with Synthetic Substitute, Open Approach (05/09/20) Supplement Left Popliteal Artery with Synthetic Substitute, Open Approach (05/09/20) Supplement Right Common Carotid Artery with Synthetic Substitute, Open Approach (11/28/22) Transfusion of Nonautologous Red Blood Cells into Peripheral Vein, Percutaneous Approach (05/09/20) Labs on day of discharge: Laboratory Results - last 24 hr 09/17/23 09/17/23 09/17/23 10:56 15:57 21:26 POC Glucose 98 205 H 223 H 09/18/23 06:52 POC Glucose 108 Discharge Plan Discharge Anticipated Discharge Date/Time: 09/18/23 08:40 Patient Disposition: Home, Self-Care Discharge Diagnosis: hpyertensive urgency Referrals: Pratik Horn MD [Physician] - 1 Week Radha Jamison DO [Primary Care Provider] - 1 Week Discharge Medications: New nifedipine 60 mg Tablet Extended Release 24hr 60 mg PO BEDTIME Qty: 90 0RF Protocol: Hold for SBP< HOLD for SBP < : 90 Continued pioglitazone 15 mg tablet 15 mg PO DAILY 30 Days Qty: 30 11RF metformin 1,000 mg Tablet 1,000 mg PO BID clopidogrel [Plavix] 75 mg tablet 75 mg PO DAILY Qty: 30 5RF fluticasone propionate 50 mcg/actuation [place],Suspension 2 spray INTRANASAL DAILY PRN (Reason: Allergy Symptoms) acetaminophen [Arthritis Pain Relief (acetam)] 650 mg Tablet Extended Release 650 mg PO Q8H PRN (Reason: Pain (Scale Score 1-3)) amitriptyline 50 mg tablet 50 mg PO BEDTIME baclofen 10 mg tablet 10 mg PO TID PRN (Reason: muscle spasm) hydroxyzine pamoate 25 mg capsule 25 mg PO Q6H PRN (Reason: anxiety) fluticasone propionate 110 mcg/actuation Hfa Aerosol Inhaler 2 puff INHALATION BID PRN (Reason: Shortness Of Breath Or Wheezing) carvedilol [Coreg] 25 mg tablet 25 mg PO BID Qty: 60 0RF Rx Instructions: must administer with a meal/food hydralazine 25 mg tablet 25 mg PO TID Qty: 90 0RF lisinopril 40 mg tablet 40 mg PO DAILY Qty: 30 0RF multivitamin Tablet 1 tab PO DAILY gabapentin 800 mg tablet 800 mg PO BID aspirin [Adult Low Dose Aspirin] 81 mg tablet,delayed release (DR/EC) 81 mg PO DAILY escitalopram oxalate [Lexapro] 20 mg tablet 20 mg PO DAILY@1800 mirtazapine 45 mg tablet 45 mg PO BEDTIME atorvastatin [Lipitor] 80 mg tablet 80 mg PO BEDTIME Tresiba FlexTouch U-100 100 unit/mL (3 mL) insulin pen 10 unit subcut DAILY (DME) FreeStyle Lite Strips Strip See Rx Instructions Not Applicable QID Qty: 10 Rx Instructions: As directed Asmanex HFA 100 mcg/actuation HFA aerosol inhaler 2 puff inhalation BID oxycodone 5 mg tablet 5 mg PO 5XD PRN (Reason: Severe Pain (Scale Score 7-10)) omeprazole 20 mg capsule,delayed release(DR/EC) 40 mg PO DAILY PRN (Reason: Heartburn) Discontinued amlodipine 10 mg Tablet 10 mg PO BEDTIME Qty: 30 0RF Discharge Orders: Discharge Order (Routine); Ordered 09/18/23 Ordered By: Tay Garzon Diet: Low salt diet Activity on Discharge: As tolerated Stand Alone Forms: Patient Portal Discharge page Print Language: Belarusian Care Plan Goals: manage blood pressure Health Concerns: htn Plan of Treatment: continue home medications as prescribed - amlodipine changed to nifedipine, follow up with nephrology Assessment: see above
[2023-09-18] MEDS: lisinopriL 40 MG TABLET PO (08:54)
[2023-09-18] MEDS: Gabapentin 400 MG CAPSULE 800 MG PO (08:54)
[2023-09-18] MEDS: 0.9 % Sodium Chloride Flush 3 ML SYRINGE IVFLUSH (08:55)
[2023-09-18] MEDS: carvediloL 25 MG TABLET PO (08:55)
[2023-09-18] MEDS: Clopidogrel Bisulfate 75 MG TABLET PO (08:55)
[2023-09-18] MEDS: hydrALAZINE HCl 25 MG TABLET PO (08:55)
[2023-09-18] MEDS: Multivitamin TABLET 1 TAB PO (08:55)
[2023-09-18] MEDS: Aspirin Enteric Coated 81 MG TABLET.DR PO (08:55)
--- NOTE | 2023-09-18 09:26 | MHC.CM.PN ---
Patient has been medically cleared for dc to home today, with services; Patient is active with [facility], who has been made aware of today's dc.
--- NOTE | 2023-09-18 09:38 | P.CONNP_ITS ---
History of Present Illness Reason for Consult Consult date: 09/18/23 Chief Complaint Chief complaint: Headache History of Present Illness Narrative: 62-year-old female with HTN, CAD w/60-70% stenosis of RCA, PAD s/p left fem-pop bypass and subsequent angioplasty o fleft profunda femoris and left popliteal artery, insulin-dependent type 2 diabetes with neuropathy presented to the ER with severe headache and high blood pressure. Pt was previously seen at in the emergency department for similar symptoms the night before presentation. Blood pressure then was high as 244/106. Patient was given IV analgesics, hydralazine, and labetalol with improvement in BP to 162/81. After IV Dilaudid patient became dizzy and vomited but patient did not want to stay in the ED for observation until symptoms past and she stated she needed to get home. Patient reports symptoms of headache and high blood pressure and returned to the hospital. She has some noncompliance with her medications, however patient is adamant she takes all of her medications on time and as prescribed. No fever, chills. Denies shortness or breath or difficulty breathing. In the ED pt was hypertensive up to 246/117 and tachycardic up to 102. Labs were grossly unremarkable. No significant electrolyte abnormalities. Renal function baseline. Troponin 3.7. EKG demonstrated normal sinus rhythm without significant ST elevations or depressions. Pt was treated with labetalol 20 mg IV, hydralazine 20 mg IV, and morphine. Pt will be admitted to the hospital for treatment and further evaluation of symptomatic hypertensive urgency. Nephrology was consulted to assist in her clinical care during her current hospital stay Review of Systems Review of Systems Yes all other systems are reviewed and are negative [facility] Past Medical History Medical History Mild aortic valve stenosis LORE (obstructive sleep apnea) Chronic low back pain Lumbar spinal stenosis HTN (hypertension) Vitamin D deficiency HLD (hyperlipidemia) T2DM (type 2 diabetes mellitus) H. pylori infection CAD (coronary artery disease) Cyst (solitary) of breast Kidney calculi Arthritis Asthma HTN (hypertension) Diabetes Family History Family History Mother Diabetes Liver cancer Surgical History Surgical History History of right-sided carotid endarterectomy (~11/2022) S/P aortogram History of esophagogastroduodenoscopy (EGD) Hx of colonoscopy History of breast surgery History of cardiac cath Social History Social History Household Members: Family Household Members Other:: friend and adult son Housing: Apartment Are you a primary career services coordinator to a significant other at home: No Do you presently have visiting nurse or other home services: No Alcohol intake: never Comment: refuses bed alarm Patient Tobacco Use Status: Never used Tobacco Tobacco use type: Cigarette Cigarette Packs Per Day: 1 Cigarettes Per Day: 3 Years Smoked: 30 e-Cigarette/Vaping Use: Never Used Second Hand Smoke Exposure: Yes service: No Current occupational status: unemployed and disabled Meds Allergies Allergy/AdvReac Type Severity Reaction Status Date / Time latex [LATEX] Allergy Severe RASH Verified 09/15/23 17:02 naproxen [From NAPROSYN] AdvReac Intermediate TACHYCARDIA Verified 09/15/23 17:02 Active Medications: Current Medications Acetaminophen (Acetaminophen 325 Mg Tablet) 650 mg PO Q6H PRN PRN Reason: Pain, Mild (Pain Scale 1-3), fever or headache Last Admin: 09/17/23 22:10 Dose: 650 mg Amitriptyline HCl (Amitriptyline Hcl 50 Mg Tablet) 50 mg PO BEDTIME [facility] Last Admin: 09/17/23 21:46 Dose: 50 mg Aspirin (Aspirin Enteric Coated 81 Mg Tablet.) 81 mg PO DAILY [facility] Last Admin: 09/18/23 08:55 Dose: 81 mg Atorvastatin Calcium (Atorvastatin Calcium 80 Mg Tablet) 80 mg PO BEDTIME [facility] Last Admin: 09/17/23 21:46 Dose: 80 mg Baclofen (Baclofen 10 Mg Tablet) 10 mg PO TID PRN PRN Reason: muscle spasm Last Admin: 09/16/23 20:27 Dose: 10 mg Calcium Carbonate (Calcium Carbonate 750 Mg Tab.Chew) 750 mg PO Q4H PRN PRN Reason: Heartburn Carvedilol (Carvedilol 25 Mg Tablet) 25 mg PO BID [facility]; Protocol Last Admin: 09/18/23 08:55 Dose: 25 mg Clopidogrel Bisulfate (Clopidogrel Bisulfate 75 Mg Tablet) 75 mg PO DAILY [facility] Last Admin: 09/18/23 08:55 Dose: 75 mg Enoxaparin Sodium (Enoxaparin Sodium 40 Mg/0.4 Ml Syringe) 40 mg SUBCUT Q24H [facility] Last Admin: 09/17/23 21:48 Dose: 40 mg Escitalopram Oxalate (Escitalopram Oxalate 20 Mg Tablet) 20 mg PO DAILY@1800 [facility] Last Admin: 09/17/23 18:11 Dose: 20 mg Fluticasone Propionate (Fluticasone Propionate 100 Mcg Blst.W.Dev) 1 puff INHALE RBID PRN PRN Reason: Shortness Of Breath Or Wheezing Gabapentin (Gabapentin 400 Mg Capsule) 800 mg PO BID [facility] Last Admin: 09/18/23 08:54 Dose: 800 mg Glucose (Glucose Gel 15 Gm Gel..Gram.) 15 gm PO Q15M PRN; Protocol PRN Reason: per Hypoglycemia Standing Ord. Hydralazine HCl (Hydralazine Hcl 25 Mg Tablet) 25 mg PO TID [facility]; Protocol Last Admin: 09/18/23 08:55 Dose: 25 mg Hydroxyzine HCl (Hydroxyzine Hcl 25 Mg Tablet) 25 mg PO Q6H PRN PRN Reason: anxiety Dextrose (D10) 250 mls @ 750 mls/hr IV Q15M PRN; Protocol PRN Reason: per Hypoglycemia Standing Ord. Insulin Human Lispro (Insulin Lispro 100 Unit/Ml 3 Ml Vial) 0 unit SUBCUT QIDACHS [facility]; Protocol Last Admin: 09/18/23 08:51 Dose: Not Given Lisinopril (Lisinopril 40 Mg Tablet) 40 mg PO DAILY [facility]; Protocol Last Admin: 09/18/23 08:54 Dose: 40 mg Magnesium Hydroxide (Milk Of Magnesia 30 Ml Oral.Susp) 30 ml PO DAILY PRN PRN Reason: Constipation Melatonin (Melatonin 3 Mg Tablet) 6 mg PO BEDTIME PRN PRN Reason: Insomnia Last Admin: 09/16/23 02:26 Dose: 6 mg Mirtazapine (Mirtazapine 15 Mg Tablet) 45 mg PO BEDTIME [facility] Last Admin: 09/17/23 21:46 Dose: 45 mg Multivitamins/Vitamin C (Multivitamin Tablet) 1 tab PO DAILY [facility] Last Admin: 09/18/23 08:55 Dose: 1 tab Nifedipine (Nifedipine Er 60 Mg Tab.Er.24) 60 mg PO BEDTIME [facility]; Protocol Ondansetron HCl (Ondansetron Hcl 4 Mg/2 Ml Vial) 4 mg IVPUSH Q8H PRN PRN Reason: Nausea and Vomiting Last Admin: 09/16/23 12:02 Dose: 4 mg Oxycodone HCl (Oxycodone Hcl Immed Release 5 Mg Tablet) 5 mg PO 5XD PRN PRN Reason: Severe Pain (Scale Score 7-10) Last Admin: 09/16/23 17:43 Dose: 5 mg Sodium Chloride (0.9 % Sodium Chloride Flush 3 Ml Syringe) 3 ml IVFLUSH QSHIFT [facility] Last Admin: 09/18/23 08:55 Dose: 3 ml Home Medications ?Medication ?Instructions ?Recorded ?Confirmed ?Last Taken ?Type metformin 1,000 mg tablet 1,000 mg PO BID 12/22/19 09/16/23 09/15/23 06:30 History aspirin 81 mg tablet,delayed 81 mg PO DAILY 01/02/20 09/16/23 09/15/23 06:30 History release (Adult Low Dose Aspirin) atorvastatin 80 mg tablet (Lipitor) 80 mg PO BEDTIME 01/02/20 09/16/23 09/14/23 History escitalopram oxalate 20 mg tablet 20 mg PO DAILY@1800 01/02/20 09/16/23 09/15/23 History (Lexapro) gabapentin 800 mg tablet 800 mg PO BID 01/02/20 09/16/23 09/15/23 06:30 History mirtazapine 45 mg tablet 45 mg PO BEDTIME 01/02/20 09/16/23 09/14/23 History multivitamin 1 tab PO DAILY 01/02/20 09/16/23 09/15/23 06:30 History acetaminophen 650 mg 650 mg PO Q8H PRN Pain (Scale 01/16/21 09/16/23 Unknown History tablet,extended release (Arthritis Score 1-3) Pain Relief (acetaminophen) ER) fluticasone propionate 50 2 spray intranasal DAILY PRN 01/16/21 09/16/23 11/27/22 History mcg/actuation nasal Allergy Symptoms spray,suspension blood sugar diagnostic (FreeStyle #10 ea 03/30/21 08/21/23 Unknown History Lite Strips) insulin degludec 100 unit/mL (3 10 unit subcut DAILY 10/03/22 09/16/23 09/11/23 History mL) subcutaneous pen (Tresiba FlexTouch U-100 insulin) amitriptyline 50 mg tablet 50 mg PO BEDTIME 11/07/22 09/16/23 09/14/23 History mometasone 100 mcg/actuation HFA 2 puff inhalation BID 06/12/23 09/16/23 09/15/23 06:30 History aerosol inhaler (Asmanex HFA) oxycodone 5 mg tablet 5 mg PO 5XD PRN Severe Pain (Scale 06/12/23 09/16/23 09/15/23 06:30 History Score 7-10) omeprazole 20 mg capsule,delayed 40 mg PO DAILY PRN Heartburn 07/19/23 09/16/23 09/15/23 06:30 History release baclofen 10 mg tablet 10 mg PO TID PRN muscle spasm 07/28/23 09/16/23 Unknown History hydroxyzine pamoate 25 mg capsule 25 mg PO Q6H PRN anxiety 07/28/23 09/16/23 Unknown History fluticasone propionate 110 2 puff inhalation BID PRN 09/11/23 09/16/23 Unknown History mcg/actuation HFA aerosol inhaler Shortness Of Breath Or Wheezing Physical Exam Vital Signs: Last Vital Signs Temp 97.2 F 09/18/23 07:05 Pulse 62 09/18/23 07:05 Resp 18 09/18/23 07:05 BP 170/76 H 09/18/23 07:05 Pulse Ox 96 09/18/23 07:05 O2 Del Method Room Air 09/18/23 07:05 BMI result Body Mass Index 28.3 Const General: comfortable and no acute distress Orientation/consciousness: patient oriented x3 HEENT Head: Yes normocephalic Mouth: Normal oral and palatal mucosa present Eyes EOM: EOMs intact bilaterally Neck Neck: Yes supple Resp Auscultation: clear to auscultation bilaterally Cardio Jugular venous distension: no JVD Rate: regular rate GI Palpation (GI): Soft to palpation Auscultation: normal bowel sounds General: Yes no CVA tenderness Back/Spine/Pelvis Back: no CVA tenderness Skin General skin exam: no rashes or lesions noted Neuro General: patient oriented x3 and moves all extremities Extrem General: Yes no pedal edema Results Lab Results 09/16/23 06:08 09/16/23 06:08 Lab results: Chemistry 09/15/23 09/16/23 21:41 06:08 Sodium 138 Potassium 3.7 Carbon Dioxide 26 BUN 13 Creatinine 0.81 0.86 Calcium 8.8 D Hematology 09/16/23 06:08 WBC 5.6 Hgb 9.8 L Plt Count 240 Urinalysis 09/15/23 19:25 Urine Color Yellow Urine Appearance Clear Urine pH 7.0 Ur Specific [place] <= 1.005 Urine Protein 100 (2+) H Urine Glucose (UA) 250 H Urine Ketones Negative Urine Blood Trace H Urine Nitrite Negative Ur Leukocyte Esterase Moderate (2+) H Urine RBC 6-10 H Urine WBC 6-10 H Ur Squamous Epith Cells 3-5 Hyaline Casts 0-2 Assessment and Plan (1) Hypertensive urgency: Status: Acute Plan Renal functions normal. No active vascular issues Serum potassium low normal. Renal angiogram normal Would switch her amlodipine to nifedipine 60 mg daily Shall continue her rest of her current antihypertensive medication We will check a renin, aldosterone, metanephrines, cortisol and thyroid function as an outpatient Shall consider addition of spironolactone (as outpatient) if her blood pressure still remains uncontrolled Shall arrange office follow-up this week if discharged Procedures Date of Service Date of Service: 09/18/23
== END 2023-09-18 11:30 | disposition home health service (06) ==
LOC: HO.ED 20:46 → HO.EDOVER 20:55 → HO.IMC 09-16 01:08
PROVIDERS: Admitting Provider Student in an Organized Health Care Education/Training Program; Emergency Provider Emergency Medicine; PCP Family Medicine; Visit Provider Internal Medicine
DX: I16.0 Hypertensive urgency (principal); R51.9 Headache, unspecified; I10 Essential (primary) hypertension; E11.9 Type 2 diabetes mellitus without complications; I25.10 Atherosclerotic heart disease of native coronary artery without angina pectoris; E78.5 Hyperlipidemia, unspecified; K21.9 Gastro-esophageal reflux disease without esophagitis; F39 Unspecified mood [affective] disorder; I73.9 Peripheral vascular disease, unspecified; Z79.899 Other long term (current) drug therapy
CPT/HCPCS: 36415; 80048; 80307; 81001; 82565; 82947; 85027; 87086; 93005; 96372; 96374; 96375; 96376; 99222; 99285; J0360; J1650; J1920; J2270; J2405

== ENCOUNTER → 2023-09-15 20:18 | Outpatient (BNV) | payer MEDICAID, SELFPAY | PROVIDERS: Admitting Provider Student in an Organized Health Care Education/Training Program; Emergency Provider Emergency Medicine; PCP Family Medicine; Visit Provider Internal Medicine Nephrology | DX: I16.0 Hypertensive urgency (principal) | CPT/HCPCS: 99223 ==

== ENCOUNTER → 2023-09-15 20:18 | Outpatient (BNV) | payer MEDICAID, SELFPAY | PROVIDERS: Admitting Provider Student in an Organized Health Care Education/Training Program; Emergency Provider Emergency Medicine; Visit Provider Student in an Organized Health Care Education/Training Program | DX: I16.0 Hypertensive urgency (principal) | CPT/HCPCS: 99222; 99231; 99232; 99239 ==

== ENCOUNTER 2023-09-20 22:54 | Inpatient (IN) | payer MEDICAID, SELFPAY ==
--- NOTE | ~2023-09-20 | XR_ITS ---
EXAMINATION: XR CHEST CLINICAL INFORMATION: Chest pain. COMPARISON: 07/06/2023 TECHNIQUE: 2 views of the chest were obtained. FINDINGS: The cardiomediastinal silhouette is stable. There is no focal lung consolidation or pleural effusions. A small hiatal hernia is again seen. The bony structures and soft tissues are unremarkable. XR/XR chest 2V IMPRESSION: 1. No acute cardiopulmonary process. 2. Small hiatal hernia.
--- NOTE | ~2023-09-20 | CT_ITS ---
EXAMINATION: CT HEAD WITHOUT CONTRAST CLINICAL INFORMATION: Headache. COMPARISON: 09/10/2023. TECHNIQUE: Contiguous axial imaging was performed from the skull base to vertex without intravenous administration of contrast. This CT examination was performed using dose optimization techniques as appropriate, variously including the following: *Automated exposure control *Adjustment of mA and/or kV according to patient size (this includes techniques or standardized protocols for targeted exams where dose is matched to indication/reason for exam; i.e. extremities or head) *Use of iterative reconstruction technique DLP: 558 mGy-cm FINDINGS: The lateral, third and fourth ventricles are normally outlined. The cortical sulci and basal cisterns are normally outlined as well. There is no acute territorial defect, hemorrhage or midline shift. The extra-axial spaces are unremarkable. Calvarium/scalp: Intact. Maxillofacial sinuses and mastoids: The maxillofacial sinuses are clear. There is mild left mastoid opacification. CT/CT head/brain wo IV con IMPRESSION: No acute intracranial pathology.
--- NOTE | 2023-09-20 23:04 | ECG_ITS ---
Test Reason : CHEST PAIN Blood Pressure : / mmHG Vent. Rate : 091 BPM Atrial Rate : 091 BPM P-R Int : 130 ms QRS Dur : 084 ms QT Int : 366 ms P-R-T Axes : 055 008 177 degrees QTc Int : 450 ms Normal sinus rhythm Possible Left atrial enlargement Marked ST abnormality, possible inferior subendocardial injury Abnormal ECG When compared with ECG of 15-SEP-2023 19:08, T wave inversion now evident in Inferior leads T wave inversion now evident in Anterior leads Referred By: Generic ED Physician Electronically Signed By:CAROLYNE ECHOLS MD
[2023-09-20 23:05] VITALS: BP 233/88; BP 234/83; PULSE 88; RESP 12; TEMP 36.7; O2SAT 99; BMI 26.6
--- NOTE | 2023-09-20 23:19 | ECG_ITS ---
Test Reason : REPEAT Blood Pressure : / mmHG Vent. Rate : 080 BPM Atrial Rate : 080 BPM P-R Int : 134 ms QRS Dur : 086 ms QT Int : 390 ms P-R-T Axes : 043 -01 132 degrees QTc Int : 449 ms Normal sinus rhythm Left ventricular hypertrophy with repolarization abnormality ( R in aVL , [place] product ) Abnormal ECG When compared with ECG of 20-SEP-2023 23:05, ST less depressed in Inferior leads Nonspecific T wave abnormality has replaced inverted T waves in Inferior leads T wave inversion no longer evident in Anterior leads Referred By: Sha Oliveira Electronically Signed By:CAROLYNE ECHOLS MD
[2023-09-20] MEDS: Aspirin Enteric Coated 325 MG TABLET.DR PO (23:22)
[2023-09-20 23:23] LABS: MANUAL DIFF FLAG NO
[2023-09-20 23:25] LABS: Basophils Percent Auto 0.5 % (0-2); Eosinophils Absolute Auto 0.1 X10*3/uL (0.0-0.4); Eosinophils Percent Auto 1.9 % (0-4); Hemoglobin 12.1 g/dl (12.0-16.0); Imm Gran Abs Auto 0.03 X10*3/uL (0.00-0.03); Imm Gran Pct Auto 0.4 % (0.0-0.4); Lymphocytes Absolute Auto 0.8 X10*3/uL (1.2-4.9); Lymphocytes Percent Auto 11.3 % (20-40); Mean Corpuscular HGB Conc 33.6 g/dl (31.0-35.0); Mean Corpuscular Hemoglobin 30.1 pg (27.0-33.0); Mean Corpuscular Volume 89.6 fL (80.0-98.0); Mean Platelet Volume 9.4 fL (9.4-12.3); Monocytes Absolute Auto 0.3 X10*3/uL (0.1-1.2); Neutrophils Percent Auto 81.9 % (45-73); Platelet Count 302 X10*3/uL (160-400); Red Blood Count 4.02 X10*6/uL (4.20-5.50); Red Cell Distribution Width 13.3 % (11.0-16.0); White Blood Count 7.3 X10*3/uL (4.8-10.8)
[2023-09-20 23:27] LABS: Appearance Urine Clear; Color Urine Yellow; Glucose Urine UA 250 mg/dL (Negative); Leukocyte Esterase Urine Trace (Negative); Nitrite Urine Negative (Negative); UMIC TRIGGER UACC YES; Urine Blood Trace (Negative); Urine Ketones Negative (Negative); Urine Protein 100 (2+) mg/dL (Neg-Trace)
--- NOTE | 2023-09-20 23:30 | ED_ITS ---
HPI - Chest Pain General Chief Complaint: Headache Stated Complaint: HTN *230/81,NAUSEA Time Seen by Provider: 09/20/23 23:05 Source: patient History of Present Illness ED Provider: Tee METZ narrative: 62-year-old female with past medical history of - presents for headache - after reviewing chart it appears the patient frequently presents for this complaint. She states that her headache started earlier today and has been gradually getting worse after she noticed her blood pressure was elevated. She also reports mild dizziness and blurry vision which happens whenever she experiences headaches like this. She also has complaints of mild left-sided chest pain. She reports compliance with her home antihypertensives. She denies shortness of breath, fevers, chills, cough, abdominal pain, nausea, vomiting, diaphoresis, urinary symptoms. Related Data Home Medications ?Medication ?Instructions ?Recorded ?Confirmed metformin 1,000 mg tablet 1,000 mg PO BID 12/22/19 09/16/23 aspirin 81 mg tablet,delayed 81 mg PO DAILY 01/02/20 09/16/23 release (Adult Low Dose Aspirin) atorvastatin 80 mg tablet (Lipitor) 80 mg PO BEDTIME 01/02/20 09/16/23 escitalopram oxalate 20 mg tablet 20 mg PO DAILY@1800 01/02/20 09/16/23 (Lexapro) gabapentin 800 mg tablet 800 mg PO BID 01/02/20 09/16/23 mirtazapine 45 mg tablet 45 mg PO BEDTIME 01/02/20 09/16/23 multivitamin 1 tab PO DAILY 01/02/20 09/16/23 acetaminophen 650 mg 650 mg PO Q8H PRN Pain (Scale 01/16/21 09/16/23 tablet,extended release (Arthritis Score 1-3) Pain Relief (acetaminophen) ER) fluticasone propionate 50 2 spray intranasal DAILY PRN 01/16/21 09/16/23 mcg/actuation nasal Allergy Symptoms spray,suspension blood sugar diagnostic (FreeStyle #10 ea 03/30/21 08/21/23 Lite Strips) insulin degludec 100 unit/mL (3 10 unit subcut DAILY 10/03/22 09/16/23 mL) subcutaneous pen (Tresiba FlexTouch U-100 insulin) amitriptyline 50 mg tablet 50 mg PO BEDTIME 11/07/22 09/16/23 mometasone 100 mcg/actuation HFA 2 puff inhalation BID 06/12/23 09/16/23 aerosol inhaler (Asmanex HFA) oxycodone 5 mg tablet 5 mg PO 5XD PRN Severe Pain (Scale 06/12/23 09/16/23 Score 7-10) omeprazole 20 mg capsule,delayed 40 mg PO DAILY PRN Heartburn 07/19/23 09/16/23 release baclofen 10 mg tablet 10 mg PO TID PRN muscle spasm 07/28/23 09/16/23 hydroxyzine pamoate 25 mg capsule 25 mg PO Q6H PRN anxiety 07/28/23 09/16/23 fluticasone propionate 110 2 puff inhalation BID PRN 09/11/23 09/16/23 mcg/actuation HFA aerosol inhaler Shortness Of Breath Or Wheezing Previous Rx's ?Medication ?Instructions ?Recorded clopidogrel 75 mg tablet (Plavix) 75 mg PO DAILY #30 tabs 12/02/20 pioglitazone 15 mg tablet 15 mg PO DAILY 30 days #30 tabs 12/02/20 carvedilol 25 mg tablet (Coreg) 25 mg PO BID #60 tabs 09/11/23 hydralazine 25 mg tablet 25 mg PO TID #90 tabs 09/11/23 lisinopril 40 mg tablet 40 mg PO DAILY #30 tabs 09/11/23 nifedipine 60 mg tablet,extended 60 mg PO BEDTIME #90 tabs 09/18/23 release 24 hr Allergies Allergy/AdvReac Type Severity Reaction Status Date / Time latex [LATEX] Allergy Severe RASH Verified 09/20/23 23:10 naproxen [From NAPROSYN] AdvReac Intermediate TACHYCARDIA Verified 09/20/23 23:10 Review of Systems 2 Review of Systems: Patient endorses headache, blurry vision, dizziness, chest pain She had had his shortness of breath, cough, fevers, chills, nausea, vomiting, diaphoresis, abdominal pain, urinary symptoms Yes all other systems are reviewed and are negative [facility] Past Medical History Attestation statement: The following information was validated with the patient. [facility] Narrative: Hypertension, CAD, diabetes, Source: old records reviewed Medical History Mild aortic valve stenosis LORE (obstructive sleep apnea) Chronic low back pain Lumbar spinal stenosis HTN (hypertension) Vitamin D deficiency HLD (hyperlipidemia) T2DM (type 2 diabetes mellitus) H. pylori infection CAD (coronary artery disease) Cyst (solitary) of breast Kidney calculi Arthritis Asthma HTN (hypertension) Diabetes Surgical History History of right-sided carotid endarterectomy (~11/2022) S/P aortogram History of esophagogastroduodenoscopy (EGD) Hx of colonoscopy History of breast surgery History of cardiac cath Family History Family History Mother Diabetes Liver cancer Social History Social History Household Members: Family Household Members Other:: friend and adult son Housing: Apartment Are you a primary long term acute care registered nurse to a significant other at home: No Do you presently have visiting nurse or other home services: No Alcohol intake: never Comment: refuses bed alarm Patient Tobacco Use Status: Never used Tobacco Tobacco use type: Cigarette Cigarette Packs Per Day: 1 Cigarettes Per Day: 3 Years Smoked: 30 Smoked in Last 30 Days: Yes e-Cigarette/Vaping Use: Never Used Second Hand Smoke Exposure: Yes Use of substances other than those prescribed or required for medical reasons: No Advance Directives: No Advance Directives Information Provided: Yes Do you have a plan to hurt others: No Plan Patient : No service: No Current occupational status: unemployed and disabled Physical Exam 2 Vital Signs: Vital Signs: Last Vital Signs Temp 98.1 F 09/21/23 00:00 Pulse 83 09/21/23 00:00 Resp 20 09/21/23 00:00 BP 211/82 H 09/21/23 00:41 Pulse Ox 99 09/21/23 00:00 O2 Del Method Room Air 09/21/23 00:00 BMI result Body Mass Index 26.6 No focal neurologic deficits appreciated; headache atraumatic and normocephalic Lungs clear to auscultation bilaterally Normal S1-S2 regular rate and rhythm Abdomen soft nontender nondistended Course Course Course Narrative: Labs and imaging studies ordered Cementer Machine Joiner consulted due to ST depression in inferior and lateral leads; on- call team automobile assembler Dr. Mayorga recommends aggressive hypertension treatment and transfer if patient is still experiencing chest pain Aspirin given Patient given sublingual nitro and multiple rounds of hydralazine for blood pressure control Medications Administered Discontinued Medications Generic Name Dose Route Start Last Admin Trade Name Nabila PRN Reason Stop Dose Admin Aspirin 325 mg 09/20/23 23:16 09/20/23 23:22 Aspirin Enteric Coated [address] HERRERA 09/20/23 23:17 325 mg ONCE ONE Administration Hydralazine HCl 10 mg 09/21/23 00:08 09/21/23 00:19 Hydralazine Hcl 20 Mg/Ml Vial IVPUSH 09/21/23 00:09 10 mg ONCE ONE Administration Protocol Hydralazine HCl 10 mg 09/21/23 00:25 09/21/23 00:41 Hydralazine Hcl 20 Mg/Ml Vial IVPUSH 09/21/23 00:26 10 mg ONCE ONE Administration Protocol Metoclopramide HCl 10 mg 09/21/23 00:27 09/21/23 00:41 Metoclopramide Hcl 10 Mg/2 Ml Vial IVPUSH 09/21/23 00:28 10 mg ONCE ONE Administration Medical Decision Making Medical Decision Making [facility] Narrative: Patient presenting with hypertension, headache and dizziness with mild chest pain I have concerns for the following; ACS/angina, intracranial bleed, hypertensive emergency/urgency, tension headache, migraine Minimal concern for dissection, PE as patient is not tachycardic and her symptoms are inconsistent with PE/dissection Patient signed out to night attending Differential Diagnosis Differential Diagnoses: The differential diagnosis associated with the presentation includes ACS/angina, intracranial bleed, hypertensive emergency/urgency, tension headache, migraine Less likely aortic dissection, PE Lab Data 09/20/23 23:19 09/20/23 23:19 Labs: Lab Results 09/20/23 09/20/23 Range/Units 23:18 23:19 WBC 7.3 (4.8-10.8) X10*3/uL RBC 4.02 L D (4.20-5.50) X10*6/uL Hgb 12.1 D (12.0-16.0) g/dl Hct 36.0 L D (37.0-47.0) % MCV 89.6 (80.0-98.0) fL MCH 30.1 (27.0-33.0) pg MCHC 33.6 (31.0-35.0) g/dl RDW 13.3 (11.0-16.0) % Plt Count 302 D (160-400) X10*3/uL MPV 9.4 (9.4-12.3) fL Immature Gran % (Auto) 0.4 (0.0-0.4) % Neut % (Auto) 81.9 H (45-73) % Lymph % (Auto) 11.3 L (20-40) % [place] % (Auto) 4.0 (2-11) % Eos % (Auto) 1.9 (0-4) % Baso % (Auto) 0.5 (0-2) % Lymph # (Auto) 0.8 L (1.2-4.9) X10*3/uL [place] # (Auto) 0.3 (0.1-1.2) X10*3/uL Eos # (Auto) 0.1 (0.0-0.4) X10*3/uL Baso # (Auto) 0.0 (0.0-0.2) X10*3/uL Abs Immat Gran (auto) 0.03 (0.00-0.03) X10*3/uL Absolute Neuts (auto) 6.0 (2.0-8.3) x10*3/uL Absolute Nucleated RBC 0.000 (0.0-0.012) X10*3/uL Nucleated RBC % (auto) 0.0 (0.0-0.2) /100WBC Sodium 142 (135-145) mmol/L Potassium 4.5 D (3.3-5.1) mmol/L Chloride 107 (96-108) mmol/L Carbon Dioxide 25 (22-29) mmol/L Anion Gap 15 (12-20) BUN 17 H (9-16) mg/dL Creatinine 1.08 (0.5-1.4) mg/dL Estim Creat Clear Calc 50.6 Estimated GFR 52 Random Glucose 292 H (60-115) mg/dL Calcium 9.7 D (8.4-10.2) mg/dL Total Bilirubin 0.3 (0.0-1.0) mg/dL AST 19 (5-31) U/L ALT 17 (0-31) U/L Alkaline Phosphatase 77 (39-117) U/L Troponin I High Sens 5.6 D (<3.5-17.0) ng/L Total Protein 6.9 (6.5-8.0) g/dL Albumin 3.9 (3.5-5.0) g/dL Urine Color Yellow Urine Appearance Clear Urine pH 6.0 (5.0-9.0) Ur Specific [place] 1.010 (1.005-1.025) Urine Protein 100 (2+) H (Neg-Trace) mg/dL Urine Glucose (UA) 250 H (Negative) mg/dL Urine Ketones Negative (Negative) mg/dL Urine Blood Trace H (Negative) Urine Nitrite Negative (Negative) Ur Leukocyte Esterase Trace H (Negative) Urine RBC 3-5 H (0-2) /HPF Urine WBC 0-5 (0-5) /HPF Ur Squamous Epith Cells 0-2 (0-2) /HPF Urine Bacteria None Seen (None Seen) Hyaline Casts 0-2 (0-2) /LPF Discharge Plan Discharge Clinical Impression: Hypertension, Headache Prescriptions: No Action pioglitazone 15 mg tablet 15 mg PO DAILY 30 Days Qty: 30 11RF metformin 1,000 mg Tablet 1,000 mg PO BID clopidogrel [Plavix] 75 mg tablet 75 mg PO DAILY Qty: 30 5RF fluticasone propionate 50 mcg/actuation [place],Suspension 2 spray INTRANASAL DAILY PRN (Reason: Allergy Symptoms) acetaminophen [Arthritis Pain Relief (acetam)] 650 mg Tablet Extended Release 650 mg PO Q8H PRN (Reason: Pain (Scale Score 1-3)) amitriptyline 50 mg tablet 50 mg PO BEDTIME baclofen 10 mg tablet 10 mg PO TID PRN (Reason: muscle spasm) hydroxyzine pamoate 25 mg capsule 25 mg PO Q6H PRN (Reason: anxiety) fluticasone propionate 110 mcg/actuation Hfa Aerosol Inhaler 2 puff INHALATION BID PRN (Reason: Shortness Of Breath Or Wheezing) carvedilol [Coreg] 25 mg tablet 25 mg PO BID Qty: 60 0RF Rx Instructions: must administer with a meal/food hydralazine 25 mg tablet 25 mg PO TID Qty: 90 0RF lisinopril 40 mg tablet 40 mg PO DAILY Qty: 30 0RF nifedipine 60 mg Tablet Extended Release 24hr 60 mg PO BEDTIME Qty: 90 0RF Protocol: Hold for SBP< HOLD for SBP < : 90 multivitamin Tablet 1 tab PO DAILY gabapentin 800 mg tablet 800 mg PO BID aspirin [Adult Low Dose Aspirin] 81 mg tablet,delayed release (DR/EC) 81 mg PO DAILY escitalopram oxalate [Lexapro] 20 mg tablet 20 mg PO DAILY@1800 mirtazapine 45 mg tablet 45 mg PO BEDTIME atorvastatin [Lipitor] 80 mg tablet 80 mg PO BEDTIME Tresiba FlexTouch U-100 100 unit/mL (3 mL) insulin pen 10 unit subcut DAILY (DME) FreeStyle Lite Strips Strip See Rx Instructions Not Applicable QID Qty: 10 Rx Instructions: As directed Asmanex HFA 100 mcg/actuation HFA aerosol inhaler 2 puff inhalation BID oxycodone 5 mg tablet 5 mg PO 5XD PRN (Reason: Severe Pain (Scale Score 7-10)) omeprazole 20 mg capsule,delayed release(DR/EC) 40 mg PO DAILY PRN (Reason: Heartburn) Print Language: Irish
[2023-09-20 23:36] LABS: Bacteria Urine None Seen (None Seen); Hyaline Casts Urine 0-2 /LPF (0-2); Squamous Epithelial Cell Urine 0-2 /HPF (0-2); WBC Urine 0-5 /HPF (0-5)
[2023-09-20 23:43] LABS: Alanine Aminotransferase 17 U/L (0-31); Albumin Level 3.9 g/dL (3.5-5.0); Alkaline Phosphatase 77 U/L (39-117); Anion Gap 15 (12-20); Aspartate Amino Transferase 19 U/L (5-31); Bilirubin Total 0.3 mg/dL (0.0-1.0); Blood Urea Nitrogen 17 mg/dL (9-16); Calcium 9.7 mg/dL (8.4-10.2); Carbon Dioxide 25 mmol/L (22-29); Chloride 107 mmol/L (96-108); Creatinine Clr Calc Pharmacy 50.6; Estimated Glomerular Filt Rate 52; Glucose Random 292 mg/dL (60-115); Potassium 4.5 mmol/L (3.3-5.1); Sodium 142 mmol/L (135-145); Total Protein 6.9 g/dL (6.5-8.0)
[2023-09-20 23:46] LABS: Troponin-I High Sensitivity 5.6 ng/L (<3.5-17.0)
[2023-09-21] VITALS (15 sets, daily range): BP systolic 123–219; BP diastolic 42–82; PULSE 67–83; RESP 12–20; TEMP 36.3–37.1; O2SAT 96–99
[2023-09-21] MEDS: hydrALAZINE HCl 20 MG/ML VIAL 10 MG IVPUSH ×2 (00:19→00:41)
[2023-09-21] MEDS: Metoclopramide HCl 10 MG/2 ML VIAL IVPUSH (00:41)
[2023-09-21] MEDS: Acetaminophen 325 MG TABLET 650 MG PO ×2 (02:06→16:19)
[2023-09-21 02:23] LABS: Troponin-I High Sensitivity 6.6 ng/L (<3.5-17.0)
--- NOTE | 2023-09-21 08:39 | PC.NURSE ---
Resumed care of pt at 0700. Pt resting in bed quietly, respirations even and unlabored, no increased WOB/SOB. Pt updated on plan to admit, pt most recent BP increasing 159/52, made aware. Call knox within reach, all needs met at this time.
--- NOTE | 2023-09-21 09:30 | P.HPHOSP_ITS ---
History of Present Illness Date of Service: 09/21/23 Chief Complaint: Headache This is a 62-year-old female with pertinent history of CAD, CAD status post left fem-pop bypass and subsequent angioplasty, insulin-dependent diabetes mellitus with neuropathy, hypertension, history of osteomyelitis who presents to the emergency department for evaluation of headache. Patient states started on the day of presentation. Patient checked her blood pressure at home and it was greater than 200. Patient states she also had lightheadedness which resolved. Does endorse compliance with p.o. medications and states she did not miss any doses. No fever, chills, chest pain, palpitations, shortness of breath, abdominal pain, changes in urinary or bowel habits. Patient is Icelandic speaking and history obtained with the help of print cutter. In the emergency department, initial blood pressure: 234/83 and patient was given multiple doses of IV hydralazine. Review of Systems 2 Constitutional: Constitutional: Reports no additional constitutional complaints and Reports headache(s) ENT: Reports dizziness and Reports headache(s) Cardiovascular: Cardiovascular: Reports no additional cardiovascular complaints Respiratory: Respiratory: Reports no additional respiratory complaints Gastrointestinal: Gastrointestinal: Reports no additional gastrointestinal complaints Genitourinary: Genitourinary: Reports no additional female genitourinary complaints Neurologic: Reports dizziness and Reports headache(s) [facility] Medical History Mild aortic valve stenosis LORE (obstructive sleep apnea) Chronic low back pain Lumbar spinal stenosis HTN (hypertension) Vitamin D deficiency HLD (hyperlipidemia) T2DM (type 2 diabetes mellitus) H. pylori infection CAD (coronary artery disease) Cyst (solitary) of breast Kidney calculi Arthritis Asthma HTN (hypertension) Diabetes Family History Mother Diabetes Liver cancer Surgical History History of right-sided carotid endarterectomy (~11/2022) S/P aortogram History of esophagogastroduodenoscopy (EGD) Hx of colonoscopy History of breast surgery History of cardiac cath Social History Household Members: Family Household Members Other:: friend and adult son Housing: Apartment Are you a primary manager intensive care to a significant other at home: No Do you presently have visiting nurse or other home services: No Alcohol intake: never Comment: refuses bed alarm Patient Tobacco Use Status: Never used Tobacco Tobacco use type: Cigarette Cigarette Packs Per Day: 1 Cigarettes Per Day: 3 Years Smoked: 30 e-Cigarette/Vaping Use: Never Used Second Hand Smoke Exposure: Yes service: No Current occupational status: unemployed and disabled Meds Allergies Allergy/AdvReac Type Severity Reaction Status Date / Time latex [LATEX] Allergy Severe RASH Verified 09/20/23 23:10 naproxen [From NAPROSYN] AdvReac Intermediate TACHYCARDIA Verified 09/20/23 23:10 Active Medications: Current Medications Nitroglycerin (Nitroglycerin 0.4 Mg Tab.Subl) 0.4 mg SUBLINGUAL Q5MX3 PRN PRN Reason: Angina Home Medications ?Medication ?Instructions ?Recorded ?Confirmed ?Last Taken ?Type metformin 1,000 mg tablet 1,000 mg PO BID 12/22/19 09/16/23 09/15/23 06:30 History aspirin 81 mg tablet,delayed 81 mg PO DAILY 01/02/20 09/16/23 09/15/23 06:30 History release (Adult Low Dose Aspirin) atorvastatin 80 mg tablet (Lipitor) 80 mg PO BEDTIME 01/02/20 09/16/23 09/14/23 History escitalopram oxalate 20 mg tablet 20 mg PO DAILY@1800 01/02/20 09/16/23 09/15/23 History (Lexapro) gabapentin 800 mg tablet 800 mg PO BID 01/02/20 09/16/23 09/15/23 06:30 History mirtazapine 45 mg tablet 45 mg PO BEDTIME 01/02/20 09/16/23 09/14/23 History multivitamin 1 tab PO DAILY 01/02/20 09/16/23 09/15/23 06:30 History acetaminophen 650 mg 650 mg PO Q8H PRN Pain (Scale 01/16/21 09/16/23 Unknown History tablet,extended release (Arthritis Score 1-3) Pain Relief (acetaminophen) ER) fluticasone propionate 50 2 spray intranasal DAILY PRN 01/16/21 09/16/23 11/27/22 History mcg/actuation nasal Allergy Symptoms spray,suspension blood sugar diagnostic (FreeStyle #10 ea 03/30/21 08/21/23 Unknown History Lite Strips) insulin degludec 100 unit/mL (3 10 unit subcut DAILY 10/03/22 09/16/23 09/11/23 History mL) subcutaneous pen (Tresiba FlexTouch U-100 insulin) amitriptyline 50 mg tablet 50 mg PO BEDTIME 11/07/22 09/16/23 09/14/23 History mometasone 100 mcg/actuation HFA 2 puff inhalation BID 06/12/23 09/16/23 09/15/23 06:30 History aerosol inhaler (Asmanex HFA) oxycodone 5 mg tablet 5 mg PO 5XD PRN Severe Pain (Scale 06/12/23 09/16/23 09/15/23 06:30 History Score 7-10) omeprazole 20 mg capsule,delayed 40 mg PO DAILY PRN Heartburn 07/19/23 09/16/23 09/15/23 06:30 History release baclofen 10 mg tablet 10 mg PO TID PRN muscle spasm 07/28/23 09/16/23 Unknown History hydroxyzine pamoate 25 mg capsule 25 mg PO Q6H PRN anxiety 07/28/23 09/16/23 Unknown History fluticasone propionate 110 2 puff inhalation BID PRN 09/11/23 09/16/23 Unknown History mcg/actuation HFA aerosol inhaler Shortness Of Breath Or Wheezing Physical Exam 2 Vital Signs and Narrative: Vital Signs: Last Vital Signs Temp 97.9 F 09/21/23 06:12 Pulse 73 09/21/23 07:32 Resp 20 09/21/23 07:32 BP 159/52 H 09/21/23 07:32 Pulse Ox 96 09/21/23 06:12 O2 Del Method Room Air 09/21/23 06:12 BMI result Body Mass Index 26.6 Middle-aged female lying in bed in no distress Neck supple, no JVD Regular rate and rhythm, S1-S2 heard Regular breath sounds bilaterally, no wheezing or crackles appreciated Abdomen soft nontender, no guarding, no rigidity Patient is awake, alert and oriented to self, place, time and person ; no focal motor deficit Psych: Normal mood No pedal edema Results Labs 09/20/23 23:19 09/20/23 23:19 Labs: Laboratory Results - last 24 hr 09/20/23 09/20/23 09/21/23 23:18 23:19 01:57 MCV 89.6 MCH 30.1 MCHC 33.6 RDW 13.3 Plt Count 302 D MPV 9.4 Immature Gran % (Auto) 0.4 Neut % (Auto) 81.9 H Lymph % (Auto) 11.3 L [place] % (Auto) 4.0 Eos % (Auto) 1.9 Baso % (Auto) 0.5 Lymph # (Auto) 0.8 L [place] # (Auto) 0.3 Eos # (Auto) 0.1 Baso # (Auto) 0.0 Abs Immat Gran (auto) 0.03 Absolute Neuts (auto) 6.0 Absolute Nucleated RBC 0.000 Nucleated RBC % (auto) 0.0 Anion Gap 15 Estim Creat Clear Calc 50.6 Estimated GFR 52 Random Glucose 292 H Calcium 9.7 D Total Bilirubin 0.3 AST 19 ALT 17 Alkaline Phosphatase 77 Troponin I High Sens 5.6 D 6.6 Total Protein 6.9 Albumin 3.9 Urine Color Yellow Urine Appearance Clear Urine pH 6.0 Ur Specific [place] 1.010 Urine Protein 100 (2+) H Urine Glucose (UA) 250 H Urine Ketones Negative Urine Blood Trace H Urine Nitrite Negative Ur Leukocyte Esterase Trace H Urine RBC 3-5 H Urine WBC 0-5 Ur Squamous Epith Cells 0-2 Urine Bacteria None Seen Hyaline Casts 0-2 Imaging Radiologist's Impressions: Impressions Chest X-Ray 09/20/23 23:49 IMPRESSION: 1. No acute cardiopulmonary process. 2. Small hiatal hernia. Head CT 09/20/23 23:53 IMPRESSION: No acute intracranial pathology. Assessment and Plan (1) Hypertensive urgency: Status: Acute Plan This is a 62-year-old female with pertinent history of CAD, CAD status post left fem-pop bypass and subsequent angioplasty, insulin-dependent diabetes mellitus with neuropathy, hypertension, history of osteomyelitis who presents to the emergency department for evaluation of headache. #. Hypertensive urgency, symptomatic: Will admit patient with cardiac monitoring. Noted previous history of medication noncompliance. Blood pressure appropriately lowered in the ER. Continue home p.o. medications. May need a specialist consult if blood pressure continues to be elevated. Reviewed echocardiogram from 07/2023 #. Insulin-dependent diabetes mellitus with hyperglycemia: Initiating basal plus insulin regimen #. CAD/PVD: Continue dual antiplatelet therapy and statin #. Mood disorder: Continue home mood stabilizers #. Gastroesophageal reflux disease: On PPI Med rec pending DVT prophylaxis: Lovenox Full code Admit as inpatient and will require two night minimum hospital stay for hemodynamic monitoring, close monitoring of blood pressure with titration of antihypertensives (as above), which is not possible in a lesser acute setting. Quality Stroke Does the patient have a stroke diagnosis?: No VTE Prior VTE?: No VTE Risk Level:: Medical - moderate - high VTE Device Contraindication: Treatment Not Indicated VTE Drug Contraindication: N/A - Med Ordered
[2023-09-21] MEDS: Enoxaparin Sodium 40 MG/0.4 ML SYRINGE SUBCUT (09:53)
--- NOTE | 2023-09-21 10:08 | PHA.MEDREC ---
Addendum entered by Ihsan Tinsley [facility] 09/21/23 10:40: med rec double checked by [facility] Original Note: Pharmacy Consult ? Medication Reconciliation Pharmacy has completed the medication reconciliation. Spoke to patient with motor vehicle parts interpreter. Patient was just discharged this past week on 09/18/23 and she was able to confirm one mediation change from then, the doctor when she was discharged put her on Nifedipine 60mg at bedtime and discontinued her Amlodipine 10mg tab daily. She also confirmed her Tresiba insulin injection which she says she does 10 units subcut daily. She last took her medications yesterday.
[2023-09-21 12:41] LABS: Glucose, Whole Blood 112 mg/dL (60-115)
[2023-09-21] MEDS: 0.9 % Sodium Chloride Flush 3 ML SYRINGE IVFLUSH (16:12)
[2023-09-21 17:53] LABS: Glucose, Whole Blood 187 mg/dL (60-115)
[2023-09-21] MEDS: Insulin Lispro 100 UNIT/ML 3 ML VIAL SUBCUT (17:54)
--- NOTE | 2023-09-21 19:16 | PC.NURSE ---
assumed care of pt at 1900 . pt resting comfortably in hospital bed,. respirations even and unlabored in no apparent distress. waiting for bed assignment up on floor. call knox within reach, plan of care ongoing.
[2023-09-21] MEDS: Atorvastatin Calcium 80 MG TABLET PO (20:34)
[2023-09-21] MEDS: Gabapentin 400 MG CAPSULE 800 MG PO (20:34)
[2023-09-21] MEDS: hydrALAZINE HCl 25 MG TABLET PO (20:34)
[2023-09-21] MEDS: carvediloL 25 MG TABLET PO (20:34)
[2023-09-21] MEDS: Mirtazapine 15 MG TABLET 45 MG PO (20:34)
[2023-09-21] MEDS: Amitriptyline HCl 50 MG TABLET PO (20:38)
[2023-09-21] MEDS: NIFEdipine ER 60 MG TAB.ER.24 PO (20:38)
--- NOTE | 2023-09-21 23:23 | PC.NURSE ---
late entry - MD caldwell informed that pt home meds not ordered therefore pt did not receive her AM doses of blood pressure medications, MD ordered per med rec and medications administered by raysa by this RN at bedtime. pt now resting comfortably in hospital bed, respirations even and unlabored. BP improved. pt going up to med tele floor.
[2023-09-21 23:26] LABS: Glucose, Whole Blood 72 mg/dL (60-115)
[2023-09-22] MEDS: 0.9 % Sodium Chloride Flush 3 ML SYRINGE IVFLUSH ×2 (00:39→09:34)
[2023-09-22 03:22] VITALS: BP 175/77; PULSE 64; RESP 20; TEMP 36.3; O2SAT 96
[2023-09-22 05:58] LABS: MANUAL DIFF FLAG NO
[2023-09-22 06:10] LABS: Basophils Percent Auto 0.5 % (0-2); Eosinophils Absolute Auto 0.2 X10*3/uL (0.0-0.4); Hematocrit 30.4 % (37.0-47.0); Hemoglobin 10.2 g/dl (12.0-16.0); Imm Gran Abs Auto 0.01 X10*3/uL (0.00-0.03); Imm Gran Pct Auto 0.2 % (0.0-0.4); Lymphocytes Absolute Auto 1.9 X10*3/uL (1.2-4.9); Lymphocytes Percent Auto 33.7 % (20-40); Mean Corpuscular HGB Conc 33.6 g/dl (31.0-35.0); Mean Corpuscular Hemoglobin 29.9 pg (27.0-33.0); Mean Corpuscular Volume 89.1 fL (80.0-98.0); Mean Platelet Volume 9.5 fL (9.4-12.3); Monocytes Absolute Auto 0.4 X10*3/uL (0.1-1.2); Neutrophils Absolute Auto 3.2 x10*3/uL (2.0-8.3); Neutrophils Percent Auto 55.6 % (45-73); Platelet Count 237 X10*3/uL (160-400); Red Blood Count 3.41 X10*6/uL (4.20-5.50); Red Cell Distribution Width 13.4 % (11.0-16.0); White Blood Count 5.7 X10*3/uL (4.8-10.8)
[2023-09-22 06:37] LABS: Anion Gap 10 (12-20); Blood Urea Nitrogen 13 mg/dL (9-16); Calcium 8.8 mg/dL (8.4-10.2); Carbon Dioxide 28 mmol/L (22-29); Chloride 108 mmol/L (96-108); Creatinine Clr Calc Pharmacy 63.6; Estimated Glomerular Filt Rate > 60; Glucose Random 136 mg/dL (60-115); Sodium 142 mmol/L (135-145)
[2023-09-22 07:33] VITALS: BP 149/65; PULSE 65; RESP 17; TEMP 36.6; O2SAT 96
[2023-09-22 08:13] LABS: Glucose, Whole Blood 132 mg/dL (60-115)
--- NOTE | 2023-09-22 09:23 | MHC.CM.PN ---
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 PCP VERIFIED VIOLETA PAT. WHILE WRITING THIS NOTE CM RECEIVED A CALL [facility] WHO REPORTED PT IS STILL ACTIVE HOWEVER MAY NEED MED MANAGEMENT W/ANOTHER AGENCY D/T FREQUENT HOSPITALIZATIONS AND LIKELIHOOD PT IS NOT COMPLAINT WITH HER MEDS.
[2023-09-22] MEDS: Clopidogrel Bisulfate 75 MG TABLET PO (09:31)
[2023-09-22] MEDS: Gabapentin 400 MG CAPSULE 800 MG PO (09:31)
[2023-09-22] MEDS: lisinopriL 40 MG TABLET PO (09:31)
[2023-09-22] MEDS: Aspirin Enteric Coated 81 MG TABLET.DR PO (09:32)
[2023-09-22] MEDS: Multivitamin TABLET 1 TAB PO (09:32)
[2023-09-22] MEDS: hydrALAZINE HCl 25 MG TABLET PO (09:33)
[2023-09-22] MEDS: carvediloL 25 MG TABLET PO (09:33)
[2023-09-22 10:40] VITALS: PULSE 86; RESP 16; O2SAT 99
[2023-09-22] MEDS: Fluticasone Propionate 100 MCG BLST.W.DEV 2 PUFF INHALE (10:41)
--- NOTE | 2023-09-22 10:51 | P.DS_ITS ---
DS: Providers Provider Date of Service: 09/22/23 Date of admission: 09/21/23 09:28 Primary care physician: [facility] DS: Diagnosis Discharge Diagnosis (1) Hypertensive urgency: Status: Acute DS: Summary Hospital Course Hospital Course: History of present illness: Date of Service: 09/21/23 Chief Complaint: Headache This is a 62-year-old female with pertinent history of CAD, CAD status post left fem-pop bypass and subsequent angioplasty, insulin-dependent diabetes mellitus with neuropathy, hypertension, history of osteomyelitis who presents to the emergency department for evaluation of headache. Patient states started on the day of presentation. Patient checked her blood pressure at home and it was greater than 200. Patient states she also had lightheadedness which resolved. Does endorse compliance with p.o. medications and states she did not miss any doses. No fever, chills, chest pain, palpitations, shortness of breath, abdominal pain, changes in urinary or bowel habits. Patient is Ghanaian speaking and history obtained with the help of hospice admitting clerk. In the emergency department, initial blood pressure: 234/83 and patient was given multiple doses of IV hydralazine. Hospital course: 62-year-old female with pertinent history of CAD, CAD status post left fem-pop bypass and subsequent angioplasty, insulin-dependent diabetes mellitus with neuropathy, hypertension, history of osteomyelitis who presents to the emergency department for evaluation of headache and noted to have elevated systolic blood pressures in 200s patient admitted to intermediate care unit for close monitoring she was placed back on all of her home medications, Blood pressure improved, headache resolved , as per patient she gets headache once weekly sometimes due to stress and she admits to skipping her medications, she had a recent diagnostic angiogram that demonstrated widely patent bilateral renal arteries she is recommended close outpatient follow-up with primary care physician and Nephrology and has been strongly advised compliance with home medications. In regard to her insulin-dependent diabetes mellitus recommend to follow diabetic diet and resume all home medications CAD/PVD: Recommend to continue dual antiplatelet therapy and statin Mood disorder: Continue home mood stabilizers Gastroesophageal reflux disease continue PPI no acute issues noted. Time Attestation Discharge Coordination Time (in mins): 36 Quality: Safe Use of Opioids Does Pt have an Active Cancer Diagnosis on the Problem List?: No Quality: Stroke Does the patient have a stroke diagnosis?: No Physical Exam Vital Signs: Vital Signs: Last Vital Signs Temp 97.9 F 08/09/24 07:33 Pulse 86 09/22/23 10:40 Resp 16 09/22/23 10:40 BP 149/65 H 09/22/23 07:33 Pulse Ox 96 09/22/23 07:33 O2 Del Method Room Air 09/22/23 07:33 BMI result Body Mass Index 26.6 Const: Other: Gen: Awake alert x3, no acute distr ess Neck: supple, no JVD Lungs: almas r to auscultation bilaterally Heart: regular rate and rhythm, no murmurs Abd: soft, non-te nder, non-distende d, bowel sounds au dible Ext: no julia a Skin: warm and d ry Neuro: alert an d oriented x3, no focal findings Psy ch: appropriate af fect DS: Data Data Completed and Pending Completed studies during hospitalization [Text1]: Procedures Extirpation of Matter from Left Femoral Artery, Open Approach (05/09/20) Extirpation of Matter from Left Popliteal Artery, Open Approach (05/09/20) Extirpation of Matter from Right Common Carotid Artery, Open Approach (11/28/22) Fluoroscopy of Aorta and Bilateral Lower Extremity Arteries (05/09/20) Insertion of Infusion Device into Superior Vena Cava, Percutaneous Approach (05/09/20) Supplement Left Femoral Artery with Synthetic Substitute, Open Approach (05/09/20) Supplement Left Popliteal Artery with Synthetic Substitute, Open Approach (05/09/20) Supplement Right Common Carotid Artery with Synthetic Substitute, Open Approach (11/28/22) Transfusion of Nonautologous Red Blood Cells into Peripheral Vein, Percutaneous Approach (05/09/20) Labs on day of discharge: Laboratory Results - last 24 hr 09/21/23 09/21/23 09/21/23 12:38 17:47 20:26 WBC RBC Hgb Hct MCV MCH MCHC RDW Plt Count MPV Immature Gran % (Auto) Neut % (Auto) Lymph % (Auto) Nance % (Auto) Eos % (Auto) Baso % (Auto) Lymph # (Auto) Nance # (Auto) Eos # (Auto) Baso # (Auto) Abs Immat Gran (auto) Absolute Neuts (auto) Absolute Nucleated RBC Nucleated RBC % (auto) Sodium Potassium Chloride Carbon Dioxide Anion Gap BUN Creatinine Estim Creat Clear Calc Estimated GFR POC Glucose 112 187 H 72 Random Glucose Calcium 09/22/23 09/22/23 09/22/23 05:53 05:54 08:06 WBC 5.7 RBC 3.41 L Hgb 10.2 L Hct 30.4 L MCV 89.1 MCH 29.9 MCHC 33.6 RDW 13.4 Plt Count 237 MPV 9.5 Immature Gran % (Auto) 0.2 Neut % (Auto) 55.6 Lymph % (Auto) 33.7 Nance % (Auto) 7.0 Eos % (Auto) 3.0 Baso % (Auto) 0.5 Lymph # (Auto) 1.9 Nance # (Auto) 0.4 Eos # (Auto) 0.2 Baso # (Auto) 0.0 Abs Immat Gran (auto) 0.01 Absolute Neuts (auto) 3.2 Absolute Nucleated RBC 0.000 Nucleated RBC % (auto) 0.0 Sodium 142 Potassium 4.0 Chloride 108 Carbon Dioxide 28 Anion Gap 10 L BUN 13 Creatinine 0.86 Estim Creat Clear Calc 63.6 Estimated GFR > 60 POC Glucose 132 H Random Glucose 136 H Calcium 8.8 D Discharge Plan Discharge Anticipated Discharge Date/Time: 09/22/23 10:18 Patient Disposition: Home, Self-Care Discharge Diagnosis: Hypertensive urgency Referrals: [facility] [facility] [Primary Care Provider] - 1 Week Discharge Medications: Continued pioglitazone 15 mg tablet 15 mg PO DAILY 30 Days Qty: 30 11RF metformin 1,000 mg Tablet 1,000 mg PO BID clopidogrel [Plavix] 75 mg tablet 75 mg PO DAILY Qty: 30 5RF fluticasone propionate 50 mcg/actuation [place],Suspension 2 spray INTRANASAL DAILY PRN (Reason: Allergy Symptoms) acetaminophen [Arthritis Pain Relief (acetam)] 650 mg Tablet Extended Release 650 mg PO Q8H PRN (Reason: Pain (Scale Score 1-3)) amitriptyline 50 mg tablet 50 mg PO BEDTIME baclofen 10 mg tablet 10 mg PO TID PRN (Reason: muscle spasm) hydroxyzine pamoate 25 mg capsule 25 mg PO Q6H PRN (Reason: anxiety) fluticasone propionate 110 mcg/actuation Hfa Aerosol Inhaler 2 puff INHALATION BID PRN (Reason: Shortness Of Breath Or Wheezing) carvedilol [Coreg] 25 mg tablet 25 mg PO BID Qty: 60 0RF Rx Instructions: must administer with a meal/food hydralazine 25 mg tablet 25 mg PO TID Qty: 90 0RF lisinopril 40 mg tablet 40 mg PO DAILY Qty: 30 0RF nifedipine 60 mg Tablet Extended Release 24hr 60 mg PO BEDTIME Qty: 90 0RF Protocol: Hold for SBP< HOLD for SBP < : 90 multivitamin Tablet 1 tab PO DAILY gabapentin 800 mg tablet 800 mg PO BID aspirin [Adult Low Dose Aspirin] 81 mg tablet,delayed release (DR/EC) 81 mg PO DAILY escitalopram oxalate [Lexapro] 20 mg tablet 20 mg PO DAILY@1800 mirtazapine 45 mg tablet 45 mg PO BEDTIME atorvastatin [Lipitor] 80 mg tablet 80 mg PO BEDTIME Tresiba FlexTouch U-100 100 unit/mL (3 mL) insulin pen 10 unit subcut DAILY (DME) FreeStyle Lite Strips Strip See Rx Instructions Not Applicable QID Qty: 10 Rx Instructions: As directed Asmanex HFA 100 mcg/actuation HFA aerosol inhaler 2 puff inhalation BID oxycodone 5 mg tablet 5 mg PO 5XD PRN (Reason: Severe Pain (Scale Score 7-10)) omeprazole 20 mg capsule,delayed release(DR/EC) 40 mg PO DAILY PRN (Reason: Heartburn) Discharge Orders: Discharge Order (Routine); Ordered 09/22/23 Ordered By: Talon Luna Diet: Diabetic diet Activity on Discharge: As tolerated Stand Alone Forms: Patient Portal Discharge page Print Language: Ghanaian Care Plan Goals: Hypertensive urgency resolved recommend compliance with home medications and close follow-up with PCP Take all medications as prescribed. Health Concerns: Diabetes mellitus/mood disorder Plan of Treatment: Outpatient follow-up with primary care physician call for appointment, outpatient follow-up with Nephrology Dr. Le. Assessment: As above
--- NOTE | 2023-09-22 10:52 | MHC.CM.PN ---
Addendum entered by Noemy Phipps RN 09/22/23 16:00: [facility] TO PROVIDE MED MANAGEMENT FOR PT, CM ATTEMPTED TO CONTACT PT'S DTR/HCP EBENEZER AT NUMBER ON FILE, DETAILED MESSAGE LEFT. Addendum entered by Noemy Phipps RN 09/22/23 11:44: PT COMPLETED HCP NAMING DTR TERENCE BUSTOS [phone], COPY UPLOADED TO [facility] AND PLACED IN CHART, CM WILL FOLLOW-UP W/TERENCE ONCE [facility] IS SECURED. Original Note: PT MEDICALLY CLEARED FOR DC HOME, CM WILL ATTEMPT TO FIND A NEW [facility] FOR MED MANAGEMENT, PT WILL ARRANGE TRANSPORT HOME
[2023-09-22 10:58] VITALS: BP 162/75; PULSE 66; RESP 17; TEMP 36; O2SAT 98
== END 2023-09-22 11:45 | disposition home health service (06) | DRG 199 ==
LOC: HO.ED 09-21 07:24 → HO.EDOVER 09-21 09:33 → HO.IMC 09-21 22:57
PROVIDERS: Admitting Provider Student in an Organized Health Care Education/Training Program; Emergency Provider Student in an Organized Health Care Education/Training Program; PCP Family Medicine; Visit Provider Hospitalist
DX: I16.0 Hypertensive urgency (principal); E11.40 Type 2 diabetes mellitus with diabetic neuropathy, unspecified; E11.51 Type 2 diabetes mellitus with diabetic peripheral angiopathy without gangrene; E11.65 Type 2 diabetes mellitus with hyperglycemia; F39 Unspecified mood [affective] disorder; I70.202 Unspecified atherosclerosis of native arteries of extremities, left leg; K21.9 Gastro-esophageal reflux disease without esophagitis; I25.10 Atherosclerotic heart disease of native coronary artery without angina pectoris; I10 Essential (primary) hypertension; Z79.4 Long term (current) use of insulin; Z79.82 Long term (current) use of aspirin; Z79.84 Long term (current) use of oral hypoglycemic drugs; Z79.899 Other long term (current) drug therapy
CPT/HCPCS: 36415; 70450; 71046; 80048; 80053; 81001; 82947; 84484; 85025; 93005; 94640; 99222; 99285; J0360; J1650; J2765

== ENCOUNTER → 2023-09-20 23:04 | Outpatient (BNV) | payer MEDICAID, SELFPAY | PROVIDERS: Admitting Provider Student in an Organized Health Care Education/Training Program; Emergency Provider Student in an Organized Health Care Education/Training Program; Visit Provider Internal Medicine Cardiovascular Disease | DX: R94.31 Abnormal electrocardiogram [ECG] [EKG] (principal) | CPT/HCPCS: 93010 ==

== ENCOUNTER → 2023-09-21 09:28 | Outpatient (BNV) | payer MEDICAID, SELFPAY | PROVIDERS: Admitting Provider Student in an Organized Health Care Education/Training Program; Emergency Provider Student in an Organized Health Care Education/Training Program; Visit Provider Student in an Organized Health Care Education/Training Program | DX: I16.0 Hypertensive urgency (principal); E11.65 Type 2 diabetes mellitus with hyperglycemia | CPT/HCPCS: 99222; 99239 ==

== ENCOUNTER 2023-10-19 13:20 | Outpatient (REF) | payer MEDICAID, SELFPAY ==
--- NOTE | ~2023-10-19 | US_ITS ---
EXAMINATION: Noninvasive assessment of the bilateral lower extremities with ARTERIAL DUPLEX CLINICAL INFORMATION: Peripheral vascular disease with history of superficial femoral artery occlusions TECHNIQUE: Duplex Doppler techniques with waveform analysis and measurement of velocities in the bilateral common femoral, profunda femoris, superficial femoral, popliteal and tibial arteries were performed. COMPARISON: 03/24/2022 and 10/18/2022 FINDINGS: DIRECT DUPLEX DOPPLER FINDINGS: RIGHT LEG: Common femoral artery: 149 cm/s, phasicity: Triphasic Profunda femoris artery: 195 cm/s, phasicity: Monophasic Superficial femoral artery (proximal): Occluded Superficial femoral artery (mid): Occluded Superficial femoral artery (distal): 48.9 cm/s, phasicity: Monophasic Popliteal artery: 55.5 cm/s, phasicity: Monophasic Posterior tibial artery: 34.0 cm/s, phasicity: Monophasic Peroneal artery: 113 cm/s, phasicity: Monophasic Anterior tibial artery: 38.5 cm/s, phasicity: Monophasic Dorsalis pedis artery: 20.7 cm/s, phasicity:Monophasic LEFT LEG: Common femoral artery: 156 cm/s, phasicity: Biphasic Profunda femoris artery: 215 cm/s, phasicity: Biphasic Superficial femoral artery (proximal): Occluded Superficial femoral artery (mid): Occluded Superficial femoral artery (distal): Occluded There is a femoropopliteal bypass graft which is patent color-flow and duplex Doppler. Proximal graft: 148 cm/s, biphasic Mid graft 78.3 cm/s, biphasic Distal graft: 42.2 cm/s, biphasic Popliteal artery: 187 cm/s, phasicity: Biphasic Posterior tibial artery: 19.4 cm/s, phasicity: Monophasic Peroneal artery: 120 cm/s, phasicity: Biphasic Anterior tibial artery: 58.9 cm/s, phasicity: Monophasic Dorsalis pedis artery: 79.2 cm/s, phasicity: Monophasic US/US arterial duplex LE BI IMPRESSION: RIGHT LEG: Occlusion of the proximal and mid superficial femoral artery with reconstitution of the distal superficial femoral artery. Monophasic waveforms seen throughout the right lower extremity. LEFT LEG: Occlusion of the proximal and mid superficial femoral artery with patent femoropopliteal bypass graft. Elevated velocity in the popliteal artery suggestive of a stenosis. Monophasic waveforms seen in the posterior tibial, anterior tibial and dorsalis pedis arteries. Electronically signed by: Moy Andrea MD 10/20/2023 02:01 PM EDT RP
--- NOTE | ~2023-10-19 | US_ITS ---
EXAMINATION: US EXTRACRANIAL CAROTID DUPLEX, BILATERAL CLINICAL INFORMATION: Carotid stenosis, history of right carotid endarterectomy COMPARISON: Carotid ultrasound from 03/24/2023 TECHNIQUE: Real-time ultrasound and Doppler techniques (integrating B-mode 2-D vascular images, Doppler spectral analysis and color-flow Doppler imaging) were utilized to interrogate the extracranial carotid arteries, the vertebral arteries and proximal subclavian arteries bilaterally. The degree of stenosis is determined by criteria similar to NASCET. FINDINGS: Right Side: 1. Status post right carotid endarterectomy . There is mild atherosclerotic plaque seen in the bifurcation/proximal ICA region. 2. The common carotid artery PSV proximally is 73.5 cm/s and distally 157 cm/s. 3. The proximal internal carotid artery velocities are 81.3 cm/s systolic and 99.1 cm/s diastolic. 4. The proximal external carotid artery PSV is 248 cm/s. 5. The vertebral artery shows antegrade flow. 6. The subclavian artery waveforms are normal. Left Side: 1. There is moderate atherosclerotic plaque seen in the bifurcation/proximal ICA region. 2. The common carotid artery PSV proximally is 93.2 cm/s and distally 139 cm/s. 3. The proximal internal carotid artery velocities are 289 cm/s systolic and 87.4 cm/s diastolic. 4. The proximal external carotid artery PSV is 352 cm/s. 5. The vertebral artery shows antegrade flow. 6. The subclavian artery waveforms are normal. US/US carotid duplex BI IMPRESSION: 1. RIGHT: Status post carotid endarterectomy Minimal, non-hemodynamically significant stenosis of the proximal right internal carotid artery corresponding to a 0-49% stenosis by velocity criteria. 2. LEFT: Moderate, hemodynamically significant stenosis of the proximal left internal carotid artery corresponding to a 50-79% stenosis by velocity criteria. 3. There is no change in the category severity of disease when compared to the previous study dated 03/24/2023. Electronically signed by: Moy Andrea MD 10/19/2023 10:29 PM EDT
== END 2023-10-19 13:21 | disposition home or self-care (01) ==
LOC: HO.US 13:20
PROVIDERS: PCP Family Medicine; Visit Provider Surgery Vascular Surgery
DX: I65.23 Occlusion and stenosis of bilateral carotid arteries (principal); I73.9 Peripheral vascular disease, unspecified
CPT/HCPCS: 93880; 93925

== ENCOUNTER 2023-10-24 21:08 | Inpatient (IN) | payer MEDICAID, SELFPAY ==
[2023-10-24] VITALS (8 sets, daily range): BP systolic 145–241; BP diastolic 52–121; PULSE 99–117; RESP 12–20; TEMP 36.6; O2SAT 96–100; BMI 27.3
--- NOTE | 2023-10-24 | ECG_ITS ---
Test Reason : HYPERTENSION Blood Pressure : / mmHG Vent. Rate : 114 BPM Atrial Rate : 114 BPM P-R Int : 136 ms QRS Dur : 076 ms QT Int : 334 ms P-R-T Axes : -13 -24 181 degrees QTc Int : 460 ms Poor data quality, interpretation may be adversely affected Sinus tachycardia Left ventricular hypertrophy with repolarization abnormality ( R in aVL ) Abnormal ECG When compared with ECG of 20-SEP-2023 23:24, ST elevation has replaced ST depression in Inferior leads ST now depressed in Anterior leads Referred By: Generic ED Physician Electronically Signed By:KARON SABA
--- NOTE | ~2023-10-24 | CT_ITS ---
EXAMINATION: CT HEAD WITHOUT IV CONTRAST CLINICAL INFORMATION: HTN, headache COMPARISON: CT head without contrast 09/20/23 TECHNIQUE: Contiguous axial imaging was performed from the skull base to vertex without intravenous contrast. Sagittal and coronal reformatted images were obtained. This CT examination was performed using dose optimization techniques as appropriate, variously including the following: * Automated exposure control * Adjustment of mA and/or kV according to patient size (this includes techniques or standardized protocols for targeted exams where dose is matched to indication/reason for exam; i.e. extremities or head) Use of iterative reconstruction technique DLP: 542 mGy-cm FINDINGS: No acute osseous or soft tissue abnormality. The mastoid air cells and visualized portions of the paranasal sinuses are well aerated. There is no evidence of acute intracranial hemorrhage or territorial infarction. No abnormal mass effect or midline shift is seen. Kelly to white matter differentiation is well preserved. No extra-axial fluid collections are identified. No hydrocephalus. No significant volume loss. There is no abnormal attenuation within the brain parenchyma. CT/CT head/brain wo IV con IMPRESSION: No acute intracranial abnormality including hemorrhage, mass effect, hydrocephalus, or acute territorial edematous infarction. Electronically signed by: Stuart Lee MD 10/25/2023 01:47 AM EDT
[2023-10-24 21:30] LABS: MANUAL DIFF FLAG NO
[2023-10-24 21:33] LABS: Basophils Absolute Auto 0.1 X10*3/uL (0.0-0.2); Basophils Percent Auto 0.7 % (0-2); Eosinophils Absolute Auto 0.2 X10*3/uL (0.0-0.4); Eosinophils Percent Auto 3.3 % (0-4); Hematocrit 36.6 % (37.0-47.0); Hemoglobin 11.9 g/dl (12.0-16.0); Imm Gran Abs Auto 0.01 X10*3/uL (0.00-0.03); Imm Gran Pct Auto 0.1 % (0.0-0.4); Lymphocytes Absolute Auto 2.2 X10*3/uL (1.2-4.9); Mean Corpuscular HGB Conc 32.5 g/dl (31.0-35.0); Mean Corpuscular Hemoglobin 29.5 pg (27.0-33.0); Mean Corpuscular Volume 90.8 fL (80.0-98.0); Monocytes Absolute Auto 0.5 X10*3/uL (0.1-1.2); Monocytes Percent Auto 7.2 % (2-11); Neutrophils Absolute Auto 4.2 x10*3/uL (2.0-8.3); Neutrophils Percent Auto 58.7 % (45-73); Platelet Count 272 X10*3/uL (160-400); Red Blood Count 4.03 X10*6/uL (4.20-5.50); Red Cell Distribution Width 13.3 % (11.0-16.0); White Blood Count 7.2 X10*3/uL (4.8-10.8)
[2023-10-24 21:39] LABS: INTERNATIONAL NORM RATIO 0.8 (0.9-1.1); Prothrombin Time 10.3 SEC (11.1-13.3)
[2023-10-24 21:58] LABS: Alanine Aminotransferase 8 U/L (0-31); Albumin Level 3.8 g/dL (3.5-5.0); Alkaline Phosphatase 90 U/L (39-117); Anion Gap 12 (12-20); Aspartate Amino Transferase 10 U/L (5-31); Bilirubin Total 0.2 mg/dL (0.0-1.0); Blood Urea Nitrogen 16 mg/dL (9-16); Calcium 9.4 mg/dL (8.4-10.2); Carbon Dioxide 27 mmol/L (22-29); Chloride 104 mmol/L (96-108); Creatinine Clr Calc Pharmacy 52.3; Estimated Glomerular Filt Rate > 60; Glucose Random 250 mg/dL (60-115); Potassium 4.1 mmol/L (3.3-5.1); Sodium 139 mmol/L (135-145); Total Protein 6.6 g/dL (6.5-8.0)
[2023-10-24 22:05] LABS: Troponin-I High Sensitivity 3.6 ng/L (<3.5-17.0)
--- NOTE | 2023-10-24 22:08 | ED.CHESTPAIN ---
HPI - Chest Pain General Chief Complaint: Chest Pain Stated Complaint: High blood pressure Time Seen by Provider: 10/24/23 22:08 Source: patient Mode of arrival: ambulatory Limitations: language barrier History of Present Illness HPI narrative: Patient is a 62-year-old female presenting to emergency department for evaluation of hypertension and headache. She states that she has been compliant with her antihypertensive medications taking them 3 times daily as prescribed. It sounds as though she had a recent change to her lisinopril approximately 2 weeks ago. By her account her blood pressure has been normal. She developed a headache 15:00 today. She took her night blood pressure medication at 19:30 including nifedipine ER 90 mg. When she checked her blood pressure she noted it was greater than 200 which prompted her presentation to the emergency department. She has had multiple visits with similar symptoms in the past. When asked she admits to having chest pain to the left anterior chest, she is able to point to this area with 1 finger, to the infra mid clavicular region. Denies associated shortness of breath. She reports that she had a recent change to her lisinopril approximately 2 weeks ago, her blood pressure notably her SBP has been normal over the past few days. She checked her blood pressure while at home today and noted it to be elevated. It is difficult to ascertain exactly which doses of medications she is taking as she is unable to recall specifically. On review of her pharmacy records most recent prescriptions include nifedipine ER 90 mg nightly, lisinopril 40 mg daily, hydralazine 25 mg 3 times daily, and carvedilol 25 mg twice daily. Related Data Home Medications ?Medication ?Instructions ?Recorded ?Confirmed metformin 1,000 mg tablet 1,000 mg PO BID 12/22/19 09/21/23 aspirin 81 mg tablet,delayed 81 mg PO DAILY 01/02/20 09/21/23 release (Adult Low Dose Aspirin) atorvastatin 80 mg tablet (Lipitor) 80 mg PO BEDTIME 01/02/20 09/21/23 escitalopram oxalate 20 mg tablet 20 mg PO DAILY@1800 01/02/20 09/21/23 (Lexapro) gabapentin 800 mg tablet 800 mg PO BID 01/02/20 09/21/23 mirtazapine 45 mg tablet 45 mg PO BEDTIME 01/02/20 09/21/23 multivitamin 1 tab PO DAILY 01/02/20 09/21/23 acetaminophen 650 mg 650 mg PO Q8H PRN Pain (Scale 01/16/21 09/21/23 tablet,extended release (Arthritis Score 1-3) Pain Relief (acetaminophen) ER) fluticasone propionate 50 2 spray intranasal DAILY PRN 01/16/21 09/21/23 mcg/actuation nasal Allergy Symptoms spray,suspension blood sugar diagnostic (FreeStyle #10 ea 03/30/21 09/21/23 Lite Strips) insulin degludec 100 unit/mL (3 10 unit subcut DAILY 10/03/22 09/21/23 mL) subcutaneous pen (Tresiba FlexTouch U-100 insulin) amitriptyline 50 mg tablet 50 mg PO BEDTIME 11/07/22 09/21/23 mometasone 100 mcg/actuation HFA 2 puff inhalation BID 06/12/23 09/21/23 aerosol inhaler (Asmanex HFA) oxycodone 5 mg tablet 5 mg PO 5XD PRN Severe Pain (Scale 06/12/23 09/21/23 Score 7-10) omeprazole 20 mg capsule,delayed 40 mg PO DAILY PRN Heartburn 07/19/23 09/21/23 release baclofen 10 mg tablet 10 mg PO TID PRN muscle spasm 07/28/23 09/21/23 hydroxyzine pamoate 25 mg capsule 25 mg PO Q6H PRN anxiety 07/28/23 09/21/23 fluticasone propionate 110 2 puff inhalation BID PRN 09/11/23 09/21/23 mcg/actuation HFA aerosol inhaler Shortness Of Breath Or Wheezing Previous Rx's ?Medication ?Instructions ?Recorded clopidogrel 75 mg tablet (Plavix) 75 mg PO DAILY #30 tabs 12/02/20 pioglitazone 15 mg tablet 15 mg PO DAILY 30 days #30 tabs 12/02/20 carvedilol 25 mg tablet (Coreg) 25 mg PO BID #60 tabs 09/11/23 hydralazine 25 mg tablet 25 mg PO TID #90 tabs 09/11/23 lisinopril 40 mg tablet 40 mg PO DAILY #30 tabs 09/11/23 nifedipine 60 mg tablet,extended 60 mg PO BEDTIME #90 tabs 09/18/23 release 24 hr Allergies Allergy/AdvReac Type Severity Reaction Status Date / Time latex [LATEX] Allergy Severe RASH Verified 10/24/23 21:14 naproxen [From NAPROSYN] AdvReac Intermediate TACHYCARDIA Verified 10/24/23 21:14 [facility] Past Medical History Medical History Mild aortic valve stenosis LORE (obstructive sleep apnea) Chronic low back pain Lumbar spinal stenosis HTN (hypertension) Vitamin D deficiency HLD (hyperlipidemia) T2DM (type 2 diabetes mellitus) H. pylori infection CAD (coronary artery disease) Cyst (solitary) of breast Kidney calculi Arthritis Asthma HTN (hypertension) Diabetes Surgical History History of right-sided carotid endarterectomy (~11/2022) S/P aortogram History of esophagogastroduodenoscopy (EGD) Hx of colonoscopy History of breast surgery History of cardiac cath Family History Family History Mother Diabetes Liver cancer Social History Social History Household Members: Family Household Members Other:: friend and adult son Housing: Apartment Are you a primary respiratory care practitioner to a significant other at home: No Do you presently have visiting nurse or other home services: No Alcohol intake: never Comment: refuses bed alarm Patient Tobacco Use Status: Never used Tobacco Tobacco use type: Cigarette Cigarette Packs Per Day: 1 Cigarettes Per Day: 20.0 Years Smoked: 30 Smoked in Last 30 Days: No e-Cigarette/Vaping Use: Currently Using Second Hand Smoke Exposure: Yes Use of substances other than those prescribed or required for medical reasons: No Advance Directives: Yes Advance Directives on File: Yes Advance Directives Date on File: 09/26/23 Do you have a plan to hurt others: No Plan service: No Current occupational status: unemployed and disabled Physical Exam Vital Signs: Vital Signs: Last Vital Signs Temp 98.7 F 10/25/23 06:00 Pulse 86 10/25/23 06:00 Resp 17 10/25/23 06:00 BP 165/55 H 10/25/23 06:00 Pulse Ox 97 10/25/23 06:00 O2 Del Method Room Air 10/25/23 06:00 BMI result Body Mass Index 27.3 Course Reevaluation(s) Reevaluation #1: Reviewed repeat EKG again revealing a sinus tachycardia with ventricular rate of 110, QTC of 446, she does have notable ST depression in the anterolateral leads but does appear similar to prior EKG in September of 2023, ST depression in anteriorly II, aVF. This EKG was reviewed with my attending, Dr. Ferraro who agrees, at this time does not appear to have acute changes when compared to previous. Will await serum labs including troponin. Does not recommend Cardiology consultation at this time again as this does not appear to be an acute change. Time: 22:42 Reevaluation #2: Pressure has improved most recently 147/62. She continues to report a severe headache it is diffuse at this time. She reports that typically headache resolves as her blood pressure comes down. She is endorsing associated dizziness but denies any vision changes. Evaluation she has no focal neurological deficits. She has had 5 head CTs since July of this year. Unfortunately due to her hypertensive crisis can not completely exclude intracranial hemorrhage, CT head to be obtained. Time: 23:14 Reevaluation #3: initial Troponin 3.6, delta troponin 15.4 (still within normal range). She is still awaiting since CT head. Given past medical history, EKG, will continue to trend the troponin Time: 00:22 Additional Reevaluation(s): 01:51 - CT head without evidence of acute intracranial hemorrhage or acute abnormality. Repeat troponin critical at 99.4. Discussed this case with ED attending Dr. Ferraro, despite this is demand ischemia from hypertensive crisis, sent [employer] message to Cardiology Dr. Bennett inquiring as to whether recommendation for heparin initiation at this time. Consultations Consultation #1: the case was discussed with Dr. Daniel patient will be admitted for serial troponin/echo /blood pressure control periods do not think change in EKG, no indication for heparin as per Cardiology. Time: 06:36 Medications Administered Discontinued Medications Generic Name Dose Route Start Last Admin Trade Name Freq PRN Reason Stop Dose Admin Acetaminophen 975 mg 10/24/23 23:53 10/25/23 00:32 Acetaminophen 325 Mg Tablet PO 10/24/23 23:54 975 mg ONCE ONE Administration Aspirin 324 mg 10/24/23 22:26 10/24/23 22:36 Aspirin 81 Mg Tab.Chew PO 10/24/23 22:27 324 mg ONCE ONE Administration Hydralazine HCl 20 mg 10/24/23 22:26 10/24/23 22:36 Hydralazine Hcl 20 Mg/Ml Vial IVPUSH 10/24/23 22:27 20 mg ONCE ONE Administration Protocol Morphine Sulfate 1 mg 10/25/23 03:29 10/25/23 03:37 Morphine Sulfate 2 Mg/Ml Cartridge IVPUSH 10/25/23 03:30 1 mg ONCE ONE Administration Protocol Ondansetron HCl 4 mg 10/25/23 03:44 10/25/23 03:47 Ondansetron Hcl 4 Mg/2 Ml Vial IVPUSH 10/25/23 03:45 4 mg ONCE ONE Administration Medical Decision Making Medical Decision Making [facility] Narrative: Patient is a 62-year-old female with past medical history of mild aortic valve stenosis, LORE, lumbar spinal stenosis, hypertension, hyperlipidemia, insulin-dependent type 2 diabetes with neuropathy, CAD status post left fem-pop bypass and subsequent angioplasty, nephrolithiasis, arthritis, asthma, who presents for evaluation of headache and reported hypertension. She was most recently evaluated in the emergency department 09/21/2023 and admitted with discharge on 09/22/2023; she was admitted for similar presentation at that time hypertension and a headache which resolved with medications, she previously admitted to sometimes skipping her blood pressure medicine, she has had a recent diagnostic angiogram demonstrating widely patent bilateral renal arteries recommending close outpatient follow-up with PCP and Nephrology. On arrival to the emergency department she is hypertensive and tachycardic; 238/1 1 for with pulse of 115. Serum labs revealing no leukocytosis, normocytic anemia that does not meet transfusion criteria, no thrombocytopenia. No electrolyte derangement. No PATRICK. LFTs within normal range. High sensitive troponin within normal range at 3.6. 22:20 on review, EKG revealing sinus tachycardia with LVH pattern, ventricular rate of 114, QTC [address] depression in the anterolateral leads, which appears more pronounced than prior EKG in 09/20/2023, notable artifact in the inferior leads unable to exclude ST elevation. Obtaining repeat EKG stat. Planning for aspirin, hydralazine IV. Differential Diagnosis Differential Diagnoses: The differential diagnosis associated with the presentation includes (See narrative above) Admission/Observation Consideration of admission/observation: Escalation of care including admission/observation considered (See narrative above) Consult Healthcare Provider Management of the patient was discussed with: Shingle Inspector (See course narrative) Lab Data MDM Lab Attestation statement: I reviewed the patient's lab results. (See narrative above and course narrative for further detail) 10/24/23 21:25 10/24/23 21:25 Labs: Lab Results 10/24/23 10/24/23 10/25/23 Range/Units 21:25 23:37 01:36 WBC 7.2 (4.8-10.8) X10*3/uL RBC 4.03 L (4.20-5.50) X10*6/uL Hgb 11.9 L (12.0-16.0) g/dl Hct 36.6 L D (37.0-47.0) % MCV 90.8 (80.0-98.0) fL MCH 29.5 (27.0-33.0) pg MCHC 32.5 (31.0-35.0) g/dl RDW 13.3 (11.0-16.0) % Plt Count 272 (160-400) X10*3/uL MPV 9.0 L (9.4-12.3) fL Immature Gran % (Auto) 0.1 (0.0-0.4) % Neut % (Auto) 58.7 (45-73) % Lymph % (Auto) 30.0 (20-40) % [place] % (Auto) 7.2 (2-11) % Eos % (Auto) 3.3 (0-4) % Baso % (Auto) 0.7 (0-2) % Lymph # (Auto) 2.2 (1.2-4.9) X10*3/uL [place] # (Auto) 0.5 (0.1-1.2) X10*3/uL Eos # (Auto) 0.2 (0.0-0.4) X10*3/uL Baso # (Auto) 0.1 (0.0-0.2) X10*3/uL Abs Immat Gran (auto) 0.01 (0.00-0.03) X10*3/uL Absolute Neuts (auto) 4.2 (2.0-8.3) x10*3/uL Absolute Nucleated RBC 0.000 (0.0-0.012) X10*3/uL Nucleated RBC % (auto) 0.0 (0.0-0.2) /100WBC PT 10.3 L (11.1-13.3) SEC INR 0.8 L (0.9-1.1) Sodium 139 (135-145) mmol/L Potassium 4.1 (3.3-5.1) mmol/L Chloride 104 (96-108) mmol/L Carbon Dioxide 27 (22-29) mmol/L Anion Gap 12 (12-20) BUN 16 (9-16) mg/dL Creatinine 0.94 (0.5-1.4) mg/dL Estim Creat Clear Calc 52.3 Estimated GFR > 60 Random Glucose 250 H (60-115) mg/dL Calcium 9.4 D (8.4-10.2) mg/dL Total Bilirubin 0.2 (0.0-1.0) mg/dL AST 10 (5-31) U/L ALT 8 (0-31) U/L Alkaline Phosphatase 90 (39-117) U/L Troponin I High Sens 3.6 15.4 D 99.4 H* D (<3.5-17.0) ng/L Total Protein 6.6 (6.5-8.0) g/dL Albumin 3.8 (3.5-5.0) g/dL Independent Interpretation I performed an independent interpretation of an: EKG (See narrative above in course narrative for further detail) and CT Scan (No ICH) Radiology Impression Discussion of test interpretation with radiology: I have reviewed the radiologist's reading. Radiologist Impression: CT/CT head/brain wo IV con IMPRESSION: No acute intracranial abnormality including hemorrhage, mass effect, hydrocephalus, or acute territorial edematous infarction. External Record Review External record reviewed: Outpatient record Prescription Management I considered prescription management with: Pain Medication Critical Care Time Critical Care Time Critical Care Time: Yes Total Critical Care Time: 45 Attestation: I personally attest to this critical care time spent taking care of the patient exclusive of all other billable procedures was approximately 45 minutes including initial evaluation of patient, ordering tests, IV hydralazine and re-evaluation, EKG interpretation, medical consultation, documentation, re-evaluation. Discharge Plan Discharge Clinical Impression: Hypertensive crisis, Elevated troponin Patient Disposition: Admitted As Inpatient Prescriptions: No Action pioglitazone 15 mg tablet 15 mg PO DAILY 30 Days Qty: 30 11RF metformin 1,000 mg Tablet 1,000 mg PO BID clopidogrel [Plavix] 75 mg tablet 75 mg PO DAILY Qty: 30 5RF fluticasone propionate 50 mcg/actuation [place],Suspension 2 spray INTRANASAL DAILY PRN (Reason: Allergy Symptoms) acetaminophen [Arthritis Pain Relief (acetam)] 650 mg Tablet Extended Release 650 mg PO Q8H PRN (Reason: Pain (Scale Score 1-3)) amitriptyline 50 mg tablet 50 mg PO BEDTIME baclofen 10 mg tablet 10 mg PO TID PRN (Reason: muscle spasm) hydroxyzine pamoate 25 mg capsule 25 mg PO Q6H PRN (Reason: anxiety) fluticasone propionate 110 mcg/actuation Hfa Aerosol Inhaler 2 puff INHALATION BID PRN (Reason: Shortness Of Breath Or Wheezing) carvedilol [Coreg] 25 mg tablet 25 mg PO BID Qty: 60 0RF Rx Instructions: must administer with a meal/food hydralazine 25 mg tablet 25 mg PO TID Qty: 90 0RF lisinopril 40 mg tablet 40 mg PO DAILY Qty: 30 0RF nifedipine 60 mg Tablet Extended Release 24hr 60 mg PO BEDTIME Qty: 90 0RF Protocol: Hold for SBP< HOLD for SBP < : 90 multivitamin Tablet 1 tab PO DAILY gabapentin 800 mg tablet 800 mg PO BID aspirin [Adult Low Dose Aspirin] 81 mg tablet,delayed release (DR/EC) 81 mg PO DAILY escitalopram oxalate [Lexapro] 20 mg tablet 20 mg PO DAILY@1800 mirtazapine 45 mg tablet 45 mg PO BEDTIME atorvastatin [Lipitor] 80 mg tablet 80 mg PO BEDTIME Tresiba FlexTouch U-100 100 unit/mL (3 mL) insulin pen 10 unit subcut DAILY (DME) FreeStyle Lite Strips Strip See Rx Instructions Not Applicable QID Qty: 10 Rx Instructions: As directed Asmanex HFA 100 mcg/actuation HFA aerosol inhaler 2 puff inhalation BID oxycodone 5 mg tablet 5 mg PO 5XD PRN (Reason: Severe Pain (Scale Score 7-10)) omeprazole 20 mg capsule,delayed release(DR/EC) 40 mg PO DAILY PRN (Reason: Heartburn) Print Language: Indonesian
--- NOTE | 2023-10-24 22:24 | ECG_ITS ---
Test Reason : CHEST PAIN Blood Pressure : / mmHG Vent. Rate : 114 BPM Atrial Rate : 114 BPM P-R Int : 136 ms QRS Dur : 084 ms QT Int : 324 ms P-R-T Axes : 052 007 163 degrees QTc Int : 446 ms Sinus tachycardia Marked ST abnormality, possible inferolateral subendocardial injury Abnormal ECG When compared with ECG of 24-OCT-2023 21:10, ST now depressed in Inferior leads Referred By: Gianna Reynolds Electronically Signed By:KARON SABA
[2023-10-24] MEDS: hydrALAZINE HCl 20 MG/ML VIAL IVPUSH (22:36)
[2023-10-24] MEDS: Aspirin 81 MG TAB.CHEW 324 MG PO (22:36)
--- NOTE | 2023-10-24 22:41 | PC.NURSE ---
Addendum entered by Ruy Wall 10/24/23 23:56: MECHANICAL DOOR REPAIRER aware of pain. BP improved as documented. repeat trop obtained. Original Note: pt to ed7 from reports 2/10 L. sided cp without radiation and 8/10 LIRIANO. neuros intact. bp as documented iv established. pt medicated per apr. axox4. sinus tachy on monitor with st abnormality ekg obtained and being viewed by Dr. Ferraro and Zeyad MECHANICAL DOOR REPAIRER at this time. pt is on heart monitor continuous bp and o2 monitoring.
[2023-10-25] VITALS (18 sets, daily range): BP systolic 139–209; BP diastolic 55–86; PULSE 71–107; RESP 14–19; TEMP 36.2–37.3; O2SAT 95–100; BMI 29.3
[2023-10-25] LABS: Troponin-I High Sensitivity 15.4 ng/L (<3.5-17.0)
--- NOTE | 2023-10-25 | ECG_ITS ---
Test Reason : REPEAT Blood Pressure : / mmHG Vent. Rate : 077 BPM Atrial Rate : 077 BPM P-R Int : 132 ms QRS Dur : 092 ms QT Int : 424 ms P-R-T Axes : 031 -18 172 degrees QTc Int : 479 ms Normal sinus rhythm Left ventricular hypertrophy with repolarization abnormality ( R in aVL , [place] product ) Abnormal ECG When compared with ECG of 25-OCT-2023 09:02, No significant change was found Referred By: Lion Ha Electronically Signed By:KARON SABA
--- NOTE | 2023-10-25 | ECG_ITS ---
Test Reason : repeat ekg Blood Pressure : / mmHG Vent. Rate : 080 BPM Atrial Rate : 080 BPM P-R Int : 134 ms QRS Dur : 080 ms QT Int : 398 ms P-R-T Axes : 030 -14 179 degrees QTc Int : 459 ms Normal sinus rhythm Left ventricular hypertrophy with repolarization abnormality ( R in aVL ) Abnormal ECG When compared with ECG of 24-OCT-2023 22:33, ST less depressed in Inferior leads ST less depressed in Lateral leads Referred By: Lion Ha Electronically Signed By:KARON SABA
[2023-10-25] MEDS: Acetaminophen 325 MG TABLET 975 MG PO (00:32)
--- NOTE | 2023-10-25 00:32 | PC.NURSE ---
JAVA WEB APPLICATION DEVELOPER aware of pain level medicated with tylenol per order.
--- NOTE | 2023-10-25 00:45 | PC.NURSE ---
pt reports increased chest pressure at this time. Zeyad MANUFACTURING TEAM LEADER aware. no changes to rhythm on monitor. pt to ct scan.
[2023-10-25 02:02] LABS: Troponin-I High Sensitivity 99.4 ng/L (<3.5-17.0)
--- NOTE | 2023-10-25 02:07 | PC.NURSE ---
critical troponin level reported to Zeyad MINE ENGINEERING SUPERINTENDENT and Dr. Ferraro. pt reporting 2/10 L. sided cp, 9/10 LIRIANO not improved with tylenol. Providers aware. also reporting nausea. vitals as documented. call knox within reach. awaiting further orders.
[2023-10-25] MEDS: Morphine Sulfate 2 MG/ML CARTRIDGE 1 MG IVPUSH (03:37)
--- NOTE | 2023-10-25 03:44 | PC.NURSE ---
verbal order for zofran entered per MD Ferraro.
[2023-10-25] MEDS: ondansetron HCL 4 MG/2 ML VIAL IVPUSH ×2 (03:47→21:19)
--- NOTE | 2023-10-25 03:55 | PC.NURSE ---
MD Ferraro renotified of pt pain level and nausea as well as critical troponin level. per MD awaiting cardiology consult.
--- NOTE | 2023-10-25 07:00 | CA_ITS ---
Transthoracic Echocardiogram Patient (Last, First, Middle): Rocío Hallman, Gender: Female Date of : 1960 Age: 62 Procedure Date: 10/25/2023 Procedure Type: Transthoracic Echocardiogram Location: ER Height: 152.4 cm Weight: 67.59 kg BSA: 1.65 m2 Heart Rate: bpm BP: 177 / 68 mmHg Fish And Wildlife Biologist: BUD Referring MD: Lion Ha MD Symptoms: elevated trop, chest pressure; to eval for rwma Study Quality: Adequate Conclusions: - Normal left ventricular size and systolic function. There is moderately increased left ventricular wall thickness. The visually estimated ejection fraction is between 60-65%. - E/E prime ratio is >15, consistent with elevated filling pressures. - Normal right ventricular cavity size and systolic function. - The left atrium is moderately dilated. - There is mild aortic valve stenosis. Findings Left Ventricle Normal left ventricular size and systolic function. There is moderately increased left ventricular wall thickness. The visually estimated ejection fraction is between 60-65%. There is no evidence of regional wall motion abnormalities. Abnormal diastolic function is noted. Spectral Doppler is indicative of an impaired relaxation filling pattern. E/E prime ratio is >15, consistent with elevated filling pressures. Right Ventricle Normal right ventricular cavity size and systolic function. Atria The left atrium is moderately dilated. Aortic Valve There is a normal trileaflet aortic valve. There is mild calcification of the aortic valve. There is mild aortic valve stenosis. There is no aortic valve regurgitation. Mitral Valve The mitral valve appears normal. There is mild mitral annular calcification. There is no mitral valve regurgitation. There is no mitral valve stenosis. Pulmonic Valve The pulmonic valve is likely normal. Tricuspid Valve Normal tricuspid valve structure. There is no tricuspid valve regurgitation. Normal right atrial pressure. There is no evidence of pulmonary hypertension. Great Vessels There is mild dilatation of the ascending aorta measuring 3.50 cm. The visualized portions of the pulmonary artery and branches are normal. Venous The inferior vena cava is normal in size and collapses greater than 50% with inspiration. Prior Study Comparison No significant change compared to prior study dated: 07/28/2023. No significant basal inf hypokinesis. Measurements 2D Linear Measurements IVSd: 1.36 0.6-0.9/0.6-1.0 cm LVIDd: 3.86 3.9-5.3/4.2-5.9 cm LVIDd Index: 2.34 2.4-3.2/2.2-3.1 cm/m2 LVIDs: 2.22 2.0-3.6 cm LVPWd: 1.35 0.7-1.1 cm Ao Root: 3.30 2.1-3.5 cm LA Diam: 3.50 2.7-3.8/3.0-4.0 cm LAIDs Index: 2.12 1.5-2.3 cm/m2 LV Mass: 235.12 67-162/88-224 g LV Mass Index: 142.50 43-95/49-115 g/m2 LVOT Diam: 1.90 3.0+(-)1.3 cm 2D Systolic Function EF 4C: 52.80 >55% EF 2C: 58.90 >55% EF BiP: 55.40 >55% Mitral Valve MV Pk E: 0.83 MV PK A: 1.14 MV Decel Time: 223.00 E/A: 0.70 E'Lateral: 3.59 E'Medial: 4.03 E/E' Med: 20.50 E/E' Lat: 23.00 PHT: 65.00 MVA PHT: 3.38 Decel [place]: 3.71 Aortic Valve AoV Pk Kuldip: 2.31 AoV Mn Kuldip: 1.62 AoV VTI: 0.52 AoV Pk Grad: 21.00 Aov Mn Grad: 11.00 YESIKA Cont.VTI: 1.21 LVOT LVOT Pk Kuldip: 0.94 LVOT Mn Kuldip: 0.67 LVOT VTI: 0.22 LVOT Pk Grad: 4.00 LVOT Mn Grad: 2.00 LVOT Diam: 1.90 LVOT Area: 2.84 Diastolic Function MV Pk E: 0.83 MV Pk A: 1.14 E/A: 0.70 E'Medial: 4.03 E/E' Med: 20.50 E' Laterial: 3.59 E/E' Lat: 23.00 Right Ventricle TAPSE (mm): 14.80 TVS' Kuldip: 22.60 Tricuspid Valve TR Pk Kuldip: 2.27 TR Pk Grad: 21.00 RA Press: 3.00 RVSP: 24.00 Great Vessels Aorta Ao Root-2D: 3.30 2.0-3.7 cm Ao Asc: 3.50 2.1-3.4 cm Ao Arch: 2.50 Updated in Other Vendor System with Status of Final Ghanshyam Daniel MD electronically signed on 10/25/2023 2:28:06 PM with status of Final
--- NOTE | 2023-10-25 09:40 | P.HPHOSP_ITS ---
History of Present Illness Date of Service: 10/25/23 Chief Complaint: dizziness, elevated htn The patient is a 62-year-old female with a past medical history of CAD, PVD status post left fem-pop bypass and subsequent angioplasty, insulin-dependent diabetes mellitus with neuropathy, hypertension, history of osteomyelitis, headaches who presents to the emergency room with complaints of dizziness, headache and elevated blood pressure readings at home. The patient has had a similar admission to this last months at which time she admitted intermittent noncompliance with her medications. However, today she reports compliance with her antihypertensives. She does report that they were changed about 2 weeks ago and the doses were increased, however she is not sure about the exact changes. Furthermore she endorses that she takes medications multiple times throughout the day including at bedtime. She states that she may have taken her a dose antidepressant instead of her antihypertensives yesterday evening. In the emergency room, the patient was found to have blood pressure readings as high as 240/120. She was treated with IV hydralazine 20 mg x 1, IV Zofran, IV morphine, Tylenol and aspirin. Her troponins which were initially 3.6 pj to 15.4 followed by 99.4. She had ST/T-wave changes on EKG, which now seem improved. Her case was discussed by the ED provider with the on-call infectious waste technician. She will now be placed under observation for further evaluation. Patient is seen and examined in the emergency room around 09:00 with angle shearer services. She reports feeling back to baseline. She denies any headaches or chest pain. She is displeased with the plan for further evaluation in the hospital, however after explanation she is in agreement. Review of Systems 2 Review of Systems: Negative except HPI [facility] Medical History Mild aortic valve stenosis LORE (obstructive sleep apnea) Chronic low back pain Lumbar spinal stenosis HTN (hypertension) Vitamin D deficiency HLD (hyperlipidemia) T2DM (type 2 diabetes mellitus) H. pylori infection CAD (coronary artery disease) Cyst (solitary) of breast Kidney calculi Arthritis Asthma HTN (hypertension) Diabetes Family History Mother Diabetes Liver cancer Surgical History History of right-sided carotid endarterectomy (~11/2022) S/P aortogram History of esophagogastroduodenoscopy (EGD) Hx of colonoscopy History of breast surgery History of cardiac cath Social History Household Members: Family Household Members Other:: friend and adult son Housing: Apartment Are you a primary health care administrator to a significant other at home: No Do you presently have visiting nurse or other home services: No Alcohol intake: never Comment: refuses bed alarm Patient Tobacco Use Status: Never used Tobacco Tobacco use type: Cigarette Cigarette Packs Per Day: 1 Cigarettes Per Day: 20.0 Years Smoked: 30 Smoked in Last 30 Days: No e-Cigarette/Vaping Use: Currently Using Second Hand Smoke Exposure: Yes Use of substances other than those prescribed or required for medical reasons: No Advance Directives: Yes Advance Directives on File: Yes Advance Directives Date on File: 09/26/23 Do you have a plan to hurt others: No Plan service: No Current occupational status: unemployed and disabled Meds Allergies Allergy/AdvReac Type Severity Reaction Status Date / Time latex [LATEX] Allergy Severe RASH Verified 10/24/23 21:14 naproxen [From NAPROSYN] AdvReac Intermediate TACHYCARDIA Verified 10/24/23 21:14 Home Medications ?Medication ?Instructions ?Recorded ?Confirmed ?Last Taken ?Type metformin 1,000 mg tablet 1,000 mg PO BID 12/22/19 10/25/23 10/24/23 History aspirin 81 mg tablet,delayed 81 mg PO DAILY 01/02/20 10/25/23 10/24/23 History release (Adult Low Dose Aspirin) atorvastatin 80 mg tablet (Lipitor) 80 mg PO BEDTIME 01/02/20 10/25/23 10/24/23 History escitalopram oxalate 20 mg tablet 20 mg PO DAILY@1800 01/02/20 10/25/23 10/24/23 History (Lexapro) gabapentin 800 mg tablet 800 mg PO BEDTIME PRN Pain 01/02/20 10/25/23 10/24/23 History mirtazapine 45 mg tablet 45 mg PO BEDTIME 01/02/20 10/25/23 10/24/23 History multivitamin 1 tab PO DAILY 01/02/20 10/25/23 10/24/23 History acetaminophen 650 mg 650 mg PO Q8H PRN Pain (Scale 01/16/21 10/25/23 10/24/23 History tablet,extended release (Arthritis Score 1-3) Pain Relief (acetaminophen) ER) blood sugar diagnostic (FreeStyle #10 ea 03/30/21 10/25/23 10/24/23 History Lite Strips) insulin degludec 100 unit/mL (3 10 unit subcut DAILY 10/03/22 10/25/23 10/24/23 History mL) subcutaneous pen (Tresiba FlexTouch U-100 insulin) amitriptyline 50 mg tablet 50 mg PO BEDTIME 11/07/22 10/25/23 10/24/23 History mometasone 100 mcg/actuation HFA 2 puff inhalation BID 06/12/23 10/25/23 10/24/23 History aerosol inhaler (Asmanex HFA) oxycodone 5 mg tablet 5 mg PO 5XD PRN Severe Pain (Scale 06/12/23 10/25/23 10/24/23 History Score 7-10) fluticasone propionate 110 2 puff inhalation BID PRN 09/11/23 10/25/23 10/24/23 History mcg/actuation HFA aerosol inhaler Shortness Of Breath Or Wheezing nifedipine 90 mg tablet,extended 90 mg PO BEDTIME 10/25/23 10/25/23 10/24/23 History release 24 hr omeprazole 40 mg capsule,delayed 40 mg PO DAILY@0630 PRN Heartburn 10/25/23 10/25/23 10/24/23 History release spironolactone 25 1 tab PO DAILY 10/25/23 10/25/23 10/24/23 History mg-hydrochlorothiazide 25 mg tablet Physical Exam 2 Vital Signs and Narrative: Vital Signs: Last Vital Signs Temp 98.4 F 10/25/23 08:38 Pulse 89 10/25/23 08:38 Resp 16 10/25/23 08:38 BP 164/67 H 10/25/23 08:38 Pulse Ox 96 10/25/23 08:38 O2 Del Method Room Air 10/25/23 08:38 BMI result Body Mass Index 27.3 Const: Other: Constitutional - Awake and Alert, No apparent distress Eyes - PERRLA, EOMI Cardiovascular - S1S2, RRR, No edema Respiratory - Normal lung expansion, Normal respiratory effort, No respiratory distress, CTA bilaterally Gastrointestinal - NT / ND; +BS; No rebound or guarding - No CVA tenderness Extremities - no calf tenderness bilaterally, no swelling Musculoskeletal - Normal inspection, normal ROM Skin - Warm/Dry Neurological - Alert & oriented x3, No focal deficit Psychological - Appropriate affect Results Labs 10/24/23 21:25 10/24/23 21:25 Labs: Laboratory Results - last 24 hr 10/24/23 10/24/23 10/25/23 21:25 23:37 01:36 MCV 90.8 MCH 29.5 MCHC 32.5 RDW 13.3 Plt Count 272 MPV 9.0 L Immature Gran % (Auto) 0.1 Neut % (Auto) 58.7 Lymph % (Auto) 30.0 [place] % (Auto) 7.2 Eos % (Auto) 3.3 Baso % (Auto) 0.7 Lymph # (Auto) 2.2 [place] # (Auto) 0.5 Eos # (Auto) 0.2 Baso # (Auto) 0.1 Abs Immat Gran (auto) 0.01 Absolute Neuts (auto) 4.2 Absolute Nucleated RBC 0.000 Nucleated RBC % (auto) 0.0 PT 10.3 L INR 0.8 L Anion Gap 12 Estim Creat Clear Calc 52.3 Estimated GFR > 60 Random Glucose 250 H Calcium 9.4 D Total Bilirubin 0.2 AST 10 ALT 8 Alkaline Phosphatase 90 Troponin I High Sens 3.6 15.4 D 99.4 H* D Total Protein 6.6 Albumin 3.8 Imaging Radiologist's Impressions: Impressions Head CT 10/25/23 00:44 IMPRESSION: No acute intracranial abnormality including hemorrhage, mass effect, hydrocephalus, or acute territorial edematous infarction. Electronically signed by: Stuart Lee MD 10/25/2023 01:47 AM EDT Assessment and Plan (1) Hypertensive crisis: Status: Acute (2) Elevated troponin: Status: Acute Plan 62-year-old female with multiple medical issues including CAD, PAD - status post left fem-pop bypass, difficult to control hypertension who presents with symptomatic hypertension, which has now improved, however she is noted to have elevated troponins and EKG changes. Hence she will be placed under observation for further evaluation. 1. Elevated troponin and EKG changes EKG appears improved and the patient denies any chest pain at this time. We will repeat troponins, consult Cardiology and check 2D echo Suspect likely due to significantly elevated blood pressures. 2. Hypertensive urgency Previously documented to be noncompliant, however patient endorses compliance at this time Reports recent changes in her antihypertensives BP improved with 1 dose of IV hydralazine, we will continue her baseline meds 3. CAD/PVD Continue DAPT plus statin 4. DM Hold orals, we will use sliding scale Diabetic diet Full code DVT prophylaxis, Lovenox Quality Stroke Does the patient have a stroke diagnosis?: No VTE Prior VTE?: No VTE Risk Level:: Medical - moderate - high VTE Device Contraindication: Treatment Not Indicated VTE Drug Contraindication: N/A - Med Ordered
--- NOTE | 2023-10-25 10:07 | PHA.MEDREC ---
Addendum entered by Anne Cazares RPh 10/25/23 10:39: reviewed by [facility], verified with [facility] pharmacy that nifedipine dose is 90 mg daily. Original Note: Pharmacy Consult ? Medication Reconciliation Pharmacy has completed the medication reconciliation. confirmed medications with patient and route clerk. Patient confirmed she is still taking Gabapentin 800mg 1 at bedtime as needed for pain and looking in claims she got that last filled 09/04/23 1 tab po TID for 30 days. She also states she is not taking Hydroxyzine 25mg due to her thinking it was her Hydralazine 25mg TID and taking it like that, she started getting reactions and thinks that's the reason why she is here. She confirmed her Tresiba insulin and she confirmed she injects 10 units daily. She also confirmed she takes Nifedipine 30mg and 60mg together at bedtime. She is still taking the Oxycodone 5mg 1 tab po 5XD as needed for sever pain. Patient last took all her medicine yesterday.
[2023-10-25 12:14] LABS: Troponin-I High Sensitivity 1758.9 ng/L (<3.5-17.0)
[2023-10-25] MEDS: lisinopriL 40 MG TABLET PO (12:17)
[2023-10-25] MEDS: Clopidogrel Bisulfate 75 MG TABLET PO (12:17)
[2023-10-25] MEDS: Spironolactone 25 MG TABLET PO (12:20)
[2023-10-25] MEDS: hydroCHLOROthiazide 25 MG TABLET PO (12:20)
--- NOTE | 2023-10-25 12:33 | PC.NURSE ---
Repeat Trop results as 1758.9, Dr. Ha notified. Order given to hold Lovenox 40mg--new order to be placed.
--- NOTE | 2023-10-25 13:12 | PM.CNCAR ---
History of Present Illness History of Present Illness Date of Service: 10/25/23 Requesting physician: Lion Ha Chief complaint: Elevated bp, dizziness Narrative: [age] year female with complex medical issues including peripheral vascular disease status post aortobifem bypass surgery with subsequent angioplasty, coronary artery disease with 60 70% RCA which was IFR negative with the past, hypertension with multiple episodes of hypertensive crisis in the recent past. She endorses that she has been taking medications regularly. She is on multiple medications for hypertension. She is again presenting with elevated blood pressures. She had some mild chest discomfort which was on the left side of the chest has subsided at this stage. Her EKGs initially showed significant ST depressions but her blood pressure was 240/120 at 1 stage. I think ECG changes are likely due to significant elevation of blood pressure. Blood pressure is improving at this stage. At home medications have been resumed. We have increased the hydralazine to 50 mg 3 times a day. Labs has shown troponins of 15.4, 99.4 and 1758.9. [facility] Past Medical History Medical History Mild aortic valve stenosis LORE (obstructive sleep apnea) Chronic low back pain Lumbar spinal stenosis HTN (hypertension) Vitamin D deficiency HLD (hyperlipidemia) T2DM (type 2 diabetes mellitus) H. pylori infection CAD (coronary artery disease) Cyst (solitary) of breast Kidney calculi Arthritis Asthma HTN (hypertension) Diabetes Family History Family History Mother Diabetes Liver cancer Surgical History Surgical History History of right-sided carotid endarterectomy (~11/2022) S/P aortogram History of esophagogastroduodenoscopy (EGD) Hx of colonoscopy History of breast surgery History of cardiac cath Social History Social History Household Members: Family Household Members Other:: friend and adult son Housing: Apartment Are you a primary health care marketing manager to a significant other at home: No Do you presently have visiting nurse or other home services: No Alcohol intake: never Comment: refuses bed alarm Patient Tobacco Use Status: Never used Tobacco Tobacco use type: Cigarette Cigarette Packs Per Day: 1 Cigarettes Per Day: 20.0 Years Smoked: 30 Smoked in Last 30 Days: No e-Cigarette/Vaping Use: Currently Using Second Hand Smoke Exposure: Yes Use of substances other than those prescribed or required for medical reasons: No Advance Directives: Yes Advance Directives on File: Yes Advance Directives Date on File: 09/26/23 Do you have a plan to hurt others: No Plan service: No Current occupational status: unemployed and disabled Meds Allergies Allergy/AdvReac Type Severity Reaction Status Date / Time latex [LATEX] Allergy Severe RASH Verified 10/24/23 21:14 naproxen [From NAPROSYN] AdvReac Intermediate TACHYCARDIA Verified 10/24/23 21:14 Active Medications: Current Medications Acetaminophen (Acetaminophen 325 Mg Tablet) 650 mg PO Q6H PRN PRN Reason: Pain, Mild (Pain Scale 1-3), fever or headache Amitriptyline HCl (Amitriptyline Hcl 50 Mg Tablet) 50 mg PO BEDTIME COUNTS INCLUDE 234 BEDS AT THE [facility] Aspirin (Aspirin Enteric Coated 81 Mg Tablet.Dr) 81 mg PO DAILY COUNTS INCLUDE 234 BEDS AT THE [facility] Atorvastatin Calcium (Atorvastatin Calcium 80 Mg Tablet) 80 mg PO BEDTIME COUNTS INCLUDE 234 BEDS AT THE [facility] Calcium Carbonate (Calcium Carbonate 750 Mg Tab.Chew) 750 mg PO Q4H PRN PRN Reason: Heartburn Carvedilol (Carvedilol 25 Mg Tablet) 25 mg PO BID COUNTS INCLUDE 234 BEDS AT THE [facility]; Protocol Clopidogrel Bisulfate (Clopidogrel Bisulfate 75 Mg Tablet) 75 mg PO DAILY COUNTS INCLUDE 234 BEDS AT THE [facility] Last Admin: 10/25/23 12:17 Dose: 75 mg Enoxaparin Sodium (Enoxaparin Sodium 60 Mg/0.6 Ml Syringe) 60 mg 1 mg/kg (60 mg) SUBCUT Q12H COUNTS INCLUDE 234 BEDS AT THE [facility] Enoxaparin Sodium (Enoxaparin Sodium 80 Mg/0.8 Ml Syringe) 70 mg 1 mg/kg (70 mg) SUBCUT Q12H COUNTS INCLUDE 234 BEDS AT THE [facility] Escitalopram Oxalate (Escitalopram Oxalate 20 Mg Tablet) 20 mg PO DAILY@1800 COUNTS INCLUDE 234 BEDS AT THE [facility] Hydralazine HCl (Hydralazine Hcl 50 Mg Tablet) 50 mg PO TID COUNTS INCLUDE 234 BEDS AT THE [facility]; Protocol Hydrochlorothiazide (Hydrochlorothiazide 25 Mg Tablet) 25 mg PO DAILY COUNTS INCLUDE 234 BEDS AT THE [facility] Last Admin: 10/25/23 12:20 Dose: 25 mg Lisinopril (Lisinopril 40 Mg Tablet) 40 mg PO DAILY COUNTS INCLUDE 234 BEDS AT THE [facility]; Protocol Last Admin: 10/25/23 12:17 Dose: 40 mg Magnesium Hydroxide (Milk Of Magnesia 30 Ml Oral.Susp) 30 ml PO DAILY PRN PRN Reason: Constipation Melatonin (Melatonin 3 Mg Tablet) 6 mg PO BEDTIME PRN PRN Reason: Insomnia Mirtazapine (Mirtazapine 15 Mg Tablet) 45 mg PO BEDTIME JORY Multivitamins/Vitamin C (Multivitamin Tablet) 1 tab PO DAILY JORY Nifedipine (Nifedipine Er 90 Mg Tab.Er.24) 90 mg PO BEDTIME JORY; Protocol Ondansetron HCl (Ondansetron Hcl 4 Mg/2 Ml Vial) 4 mg IVPUSH Q8H PRN PRN Reason: Nausea and Vomiting Oxycodone HCl (Oxycodone Hcl Immed Release 5 Mg Tablet) 5 mg PO Q4H PRN PRN Reason: Severe Pain (Scale Score 7-10) Pantoprazole Sodium (Pantoprazole Sodium 20 Mg Tablet.Dr) 40 mg PO DAILY@0630 PRN PRN Reason: Heartburn Sodium Chloride (0.9 % Sodium Chloride Flush 3 Ml Syringe) 3 ml IVFLUSH QSHIFT JORY Spironolactone (Spironolactone 25 Mg Tablet) 25 mg PO DAILY JORY Last Admin: 10/25/23 12:20 Dose: 25 mg Home Medications ?Medication ?Instructions ?Recorded ?Confirmed ?Last Taken ?Type metformin 1,000 mg tablet 1,000 mg PO BID 12/22/19 10/25/23 10/24/23 History aspirin 81 mg tablet,delayed 81 mg PO DAILY 01/02/20 10/25/23 10/24/23 History release (Adult Low Dose Aspirin) atorvastatin 80 mg tablet (Lipitor) 80 mg PO BEDTIME 01/02/20 10/25/23 10/24/23 History escitalopram oxalate 20 mg tablet 20 mg PO DAILY@1800 01/02/20 10/25/23 10/24/23 History (Lexapro) gabapentin 800 mg tablet 800 mg PO BEDTIME PRN Pain 01/02/20 10/25/23 10/24/23 History mirtazapine 45 mg tablet 45 mg PO BEDTIME 01/02/20 10/25/23 10/24/23 History multivitamin 1 tab PO DAILY 01/02/20 10/25/23 10/24/23 History acetaminophen 650 mg 650 mg PO Q8H PRN Pain (Scale 01/16/21 10/25/23 10/24/23 History tablet,extended release (Arthritis Score 1-3) Pain Relief (acetaminophen) ER) blood sugar diagnostic (FreeStyle #10 ea 03/30/21 10/25/23 10/24/23 History Lite Strips) insulin degludec 100 unit/mL (3 10 unit subcut DAILY 10/03/22 10/25/23 10/24/23 History mL) subcutaneous pen (Tresiba FlexTouch U-100 insulin) amitriptyline 50 mg tablet 50 mg PO BEDTIME 11/07/22 10/25/23 10/24/23 History mometasone 100 mcg/actuation HFA 2 puff inhalation BID 06/12/23 10/25/23 10/24/23 History aerosol inhaler (Asmanex HFA) oxycodone 5 mg tablet 5 mg PO 5XD PRN Severe Pain (Scale 06/12/23 10/25/23 10/24/23 History Score 7-10) fluticasone propionate 110 2 puff inhalation BID PRN 09/11/23 10/25/23 10/24/23 History mcg/actuation HFA aerosol inhaler Shortness Of Breath Or Wheezing nifedipine 90 mg tablet,extended 90 mg PO BEDTIME 10/25/23 10/25/23 10/24/23 History release 24 hr omeprazole 40 mg capsule,delayed 40 mg PO DAILY@0630 PRN Heartburn 10/25/23 10/25/23 10/24/23 History release spironolactone 25 1 tab PO DAILY 10/25/23 10/25/23 10/24/23 History mg-hydrochlorothiazide 25 mg tablet Physical Exam Vital Signs: Vital Signs: Last Vital Signs Temp 98.2 F 10/25/23 12:45 Pulse 86 10/25/23 12:45 Resp 17 10/25/23 12:45 BP 177/68 H 10/25/23 12:45 Pulse Ox 95 10/25/23 12:45 O2 Del Method Room Air 10/25/23 12:45 BMI result Body Mass Index 29.3 GENERAL APPEARANCE: in no acute distress, pleasant. NECK: no jugular venous distention. Right carotid endarterectomy scar. SKIN: no suspicious lesions, warm and dry. HEART: no murmurs, regular rate and rhythm. LUNGS: clear to auscultation bilaterally. ABDOMEN: soft, nontender. EXTREMITIES: no edema. PERIPHERAL PULSES: equal. NEUROLOGIC: No gross deficits, AAO X 3 Objective Labs and Meds 10/24/23 21:25 10/24/23 21:25 Lab results: Laboratory Results - last 24 hr 10/24/23 10/24/23 10/25/23 21:25 23:37 01:36 WBC 7.2 RBC 4.03 L Hgb 11.9 L Hct 36.6 L D MCV 90.8 MCH 29.5 MCHC 32.5 RDW 13.3 Plt Count 272 MPV 9.0 L Immature Gran % (Auto) 0.1 Neut % (Auto) 58.7 Lymph % (Auto) 30.0 [place] % (Auto) 7.2 Eos % (Auto) 3.3 Baso % (Auto) 0.7 Lymph # (Auto) 2.2 [place] # (Auto) 0.5 Eos # (Auto) 0.2 Baso # (Auto) 0.1 Abs Immat Gran (auto) 0.01 Absolute Neuts (auto) 4.2 Absolute Nucleated RBC 0.000 Nucleated RBC % (auto) 0.0 PT 10.3 L INR 0.8 L Sodium 139 Potassium 4.1 Chloride 104 Carbon Dioxide 27 Anion Gap 12 BUN 16 Creatinine 0.94 Estim Creat Clear Calc 52.3 Estimated GFR > 60 Random Glucose 250 H Calcium 9.4 D Total Bilirubin 0.2 AST 10 ALT 8 Alkaline Phosphatase 90 Troponin I High Sens 3.6 15.4 D 99.4 H* D Total Protein 6.6 Albumin 3.8 10/25/23 10:41 WBC RBC Hgb Hct MCV MCH MCHC RDW Plt Count MPV Immature Gran % (Auto) Neut % (Auto) Lymph % (Auto) [place] % (Auto) Eos % (Auto) Baso % (Auto) Lymph # (Auto) [place] # (Auto) Eos # (Auto) Baso # (Auto) Abs Immat Gran (auto) Absolute Neuts (auto) Absolute Nucleated RBC Nucleated RBC % (auto) PT INR Sodium Potassium Chloride Carbon Dioxide Anion Gap BUN Creatinine Estim Creat Clear Calc Estimated GFR Random Glucose Calcium Total Bilirubin AST ALT Alkaline Phosphatase Troponin I High Sens 1758.9 H* D Total Protein Albumin Imaging Radiologist's impression: Impressions Head CT 10/25/23 00:44 IMPRESSION: No acute intracranial abnormality including hemorrhage, mass effect, hydrocephalus, or acute territorial edematous infarction. Electronically signed by: Stuart Lee MD 10/25/2023 01:47 AM EDT Assessment and Plan (1) Elevated troponin: Status: Acute (2) Hypertensive crisis: Status: Acute Plan [age] year female with known coronary artery disease with 60 70% RCA stenosis based on cardiac catheterization from 2016, peripheral vascular disease with aortobifem bypass surgery. Right carotid endarterectomy, significant hypertension and presentation again with hypertensive emergency. She had mild chest discomfort but did have significant ischemic changes on the ECG but blood pressure was also 240/120 at 1 stage. Her troponins have increased significantly on 15.4-99 and then 1758. Agree with the starting IV heparin for now. We will check echocardiogram to assess LV function. Please check if she had any renal imaging done recently if not then renal ultrasound should be arranged because she is a vasculopath and can have aorto ostial disease in the renal arteries which can lead to hypertensive presentations. Thank you for allowing me to participate in the care of your patient. Please feel free to contact me if you have any questions. Procedures Date of Service Date of Service: 10/25/23
[2023-10-25] MEDS: carvediloL 25 MG TABLET PO ×2 (13:16→21:15)
[2023-10-25] MEDS: Enoxaparin Sodium 80 MG/0.8 ML SYRINGE 70 MG SUBCUT (13:19)
[2023-10-25] MEDS: hydrALAZINE HCl 50 MG TABLET PO ×2 (14:14→21:14)
[2023-10-25] MEDS: oxyCODONE HCl Immed Release 5 MG TABLET PO ×2 (14:16→19:58)
--- NOTE | 2023-10-25 14:34 | PC.NURSE ---
Pt given Oxycodone for 7/10 low back pain Heparin gtt to start at 0100
[2023-10-25] MEDS: 0.9 % Sodium Chloride Flush 3 ML SYRINGE IVFLUSH (15:41)
[2023-10-25] MEDS: Escitalopram Oxalate 20 MG TABLET PO (18:51)
[2023-10-25 20:06] LABS: Glucose, Whole Blood 212 mg/dL (60-115)
[2023-10-25] MEDS: NIFEdipine ER 90 MG TAB.ER.24 PO (21:14)
[2023-10-25] MEDS: Atorvastatin Calcium 80 MG TABLET PO (21:15)
[2023-10-26 01:00] VITALS: BMI 27.6
[2023-10-26] MEDS: Heparin Sodium,Porcine/1/2NS 25,000 UNIT/250 ML IV.SOLN 7.68 UNIT IVCONT (01:30)
[2023-10-26] MEDS: 0.9 % Sodium Chloride Flush 3 ML SYRINGE IVFLUSH (01:37)
[2023-10-26 03:46] VITALS: BP 162/57; PULSE 68; RESP 18; TEMP 36.1; O2SAT 96
[2023-10-26 07:00] LABS: Hematocrit 33.5 % (37.0-47.0); Hemoglobin 11.3 g/dl (12.0-16.0); Mean Corpuscular HGB Conc 33.7 g/dl (31.0-35.0); Mean Corpuscular Hemoglobin 29.4 pg (27.0-33.0); Mean Corpuscular Volume 87.2 fL (80.0-98.0); Mean Platelet Volume 9.3 fL (9.4-12.3); Platelet Count 263 X10*3/uL (160-400); Red Blood Count 3.84 X10*6/uL (4.20-5.50); Red Cell Distribution Width 13.1 % (11.0-16.0); White Blood Count 6.7 X10*3/uL (4.8-10.8)
[2023-10-26 07:07] LABS: PTT Heparin Drip 58.8 SEC (53-77.9)
[2023-10-26 07:15] LABS: Alanine Aminotransferase 9 U/L (0-31); Alkaline Phosphatase 76 U/L (39-117); Anion Gap 12 (12-20); Aspartate Amino Transferase 11 U/L (5-31); Bilirubin Total 0.4 mg/dL (0.0-1.0); Blood Urea Nitrogen 14 mg/dL (9-16); Calcium 8.8 mg/dL (8.4-10.2); Carbon Dioxide 26 mmol/L (22-29); Chloride 103 mmol/L (96-108); Creatinine Clr Calc Pharmacy 49.8; Estimated Glomerular Filt Rate 57; Glucose Random 201 mg/dL (60-115); Potassium 4.5 mmol/L (3.3-5.1); Sodium 136 mmol/L (135-145); Total Protein 5.5 g/dL (6.5-8.0)
[2023-10-26 08:00] VITALS: BP 157/72; PULSE 68; RESP 16; TEMP 37.1; O2SAT 96
[2023-10-26] MEDS: Clopidogrel Bisulfate 75 MG TABLET PO (09:34)
[2023-10-26] MEDS: Spironolactone 25 MG TABLET PO (09:34)
[2023-10-26] MEDS: hydroCHLOROthiazide 25 MG TABLET PO (09:34)
[2023-10-26] MEDS: Aspirin Enteric Coated 81 MG TABLET.DR PO (09:34)
[2023-10-26] MEDS: carvediloL 25 MG TABLET PO ×2 (09:34→21:49)
[2023-10-26 09:35] LABS: Appearance Urine Clear; Color Urine Yellow; Glucose Urine UA Negative (Negative); Leukocyte Esterase Urine Negative (Negative); Nitrite Urine Negative (Negative); Specific Gravity - Urine 1.015 (1.005-1.025); UMIC TRIGGER UACC YES; Urine Blood Negative (Negative); Urine Ketones Negative (Negative); Urine Protein 300 (3+) mg/dL (Neg-Trace)
[2023-10-26] MEDS: Multivitamin TABLET 1 TAB PO (09:35)
[2023-10-26] MEDS: lisinopriL 40 MG TABLET PO (09:35)
[2023-10-26] MEDS: hydrALAZINE HCl 50 MG TABLET PO ×3 (09:36→21:49)
[2023-10-26 10:01] LABS: Bacteria Urine None Seen (None Seen); Hyaline Casts Urine 0-2 /LPF (0-2); RBC Urine 0-2 /HPF (0-2); Squamous Epithelial Cell Urine 0-2 /HPF (0-2); WBC Urine 0-5 /HPF (0-5)
--- NOTE | 2023-10-26 11:19 | MHC.CM.PN ---
[place] 10/26/23, Pt lives with family, she has a nurse that comes to her home 3 times a day to take her BP [facility] She does not have DME. She is able to arrange transport home at [place]. HCP on file and confirmed: Margret. DCP: home, resume services. CM to follow for DC needs.
--- NOTE | 2023-10-26 11:34 | PM.PNCARD ---
Subjective Subjective Date of Service: 10/26/23 Interval history: Seen examined at bedside. No chest discomfort. Blood pressure is improving but still elevated. On heparin drip. Physical Exam Vital Signs: Last Vital Signs Temp 98.8 F 10/26/23 08:00 Pulse 68 10/26/23 08:00 Resp 16 10/26/23 08:00 BP 157/72 H 10/26/23 08:00 Pulse Ox 96 10/26/23 08:00 O2 Del Method Room Air 10/26/23 08:00 BMI result Body Mass Index 27.6 GENERAL APPEARANCE: in no acute distress, pleasant. NECK: no jugular venous distention. Right carotid endarterectomy scar. SKIN: no suspicious lesions, warm and dry. HEART: no murmurs, regular rate and rhythm. LUNGS: clear to auscultation bilaterally. ABDOMEN: soft, nontender. EXTREMITIES: no edema. PERIPHERAL PULSES: equal. NEUROLOGIC: No gross deficits, AAO X 3 Objective Labs and Meds 10/26/23 06:22 10/26/23 06:22 Lab results: Laboratory Results - last 24 hr 10/25/23 10/25/23 10/26/23 10:41 20:03 00:20 WBC RBC Hgb Hct MCV MCH MCHC RDW Plt Count MPV Absolute Nucleated RBC Nucleated RBC % (auto) aPTT Heparin Protocol 36.0 L Sodium Potassium Chloride Carbon Dioxide Anion Gap BUN Creatinine Estim Creat Clear Calc Estimated GFR POC Glucose 212 H Random Glucose Calcium Total Bilirubin AST ALT Alkaline Phosphatase Troponin I High Sens 1758.9 H* D Total Protein Albumin Urine Color Urine Appearance Urine pH Ur Specific [place] Urine Protein Urine Glucose (UA) Urine Ketones Urine Blood Urine Nitrite Ur Leukocyte Esterase Urine RBC Urine WBC Ur Squamous Epith Cells Urine Bacteria Hyaline Casts 10/26/23 10/26/23 06:22 09:21 WBC 6.7 RBC 3.84 L Hgb 11.3 L Hct 33.5 L MCV 87.2 MCH 29.4 MCHC 33.7 RDW 13.1 Plt Count 263 MPV 9.3 L Absolute Nucleated RBC 0.000 Nucleated RBC % (auto) 0.0 aPTT Heparin Protocol 58.8 D Sodium 136 Potassium 4.5 Chloride 103 Carbon Dioxide 26 Anion Gap 12 BUN 14 Creatinine 0.99 Estim Creat Clear Calc 49.8 Estimated GFR 57 POC Glucose Random Glucose 201 H Calcium 8.8 D Total Bilirubin 0.4 AST 11 ALT 9 Alkaline Phosphatase 76 Troponin I High Sens Total Protein 5.5 L Albumin 3.0 L Urine Color Yellow Urine Appearance Clear Urine pH 6.0 Ur Specific [place] 1.015 Urine Protein 300 (3+) H Urine Glucose (UA) Negative Urine Ketones Negative Urine Blood Negative Urine Nitrite Negative Ur Leukocyte Esterase Negative Urine RBC 0-2 Urine WBC 0-5 Ur Squamous Epith Cells 0-2 Urine Bacteria None Seen Hyaline Casts 0-2 Progress Note: A&P Assessment and plan (1) Elevated troponin: Status: Acute (2) Hypertensive emergency: Status: Resolved Plan 62-year-old female presenting with hypertensive emergency with significantly elevated blood pressures and dynamic EKG changes. She ruled in for NSTEMI. ECHO is showing normal biventricular function. No obvious wall motion abnormalities. I think this is a type 2 [place] due to significant elevation of blood pressure. Continue with the dual antiplatelet therapy. Blood pressure is improving. I think heparin can be stopped. As blood pressure improves we can discharge her and we will do outpatient stress testing on her. She has known coronary disease in the past and had a moderate RCA stenosis in 2016. At that time she did not have any significant disease in other vessels. Obviously after blood pressure control if she has any recurrent chest discomfort then our decision about stress testing may change and she may need a transfer to [facility]. Currently I think she has been quite stable with blood pressure control and has not had any recurrent symptoms. Thank you for allowing me to participate in the care of your patient. Please feel free to contact me if you have any questions. Time Spent With Patient Time: Total time managing care of this patient today ____ minutes. Progress Note: Quality Stroke Does the patient have a stroke diagnosis?: No Procedures Date of Service Date of Service: 10/26/23
[2023-10-26 11:41] LABS: PTT Heparin Drip 59.5 SEC (53-77.9)
[2023-10-26 12:46] VITALS: BP 128/59; PULSE 67; RESP 16; TEMP 37.2; O2SAT 95
--- NOTE | 2023-10-26 13:55 | P.PNIM_ITS ---
Subjective Subjective Date of Service: 10/26/23 Interval History: seen and examined this morning follow up for hypertensive urgency, NSTEMI No chest pain, palpitations, shortness of breath, dizziness. no headache Review of Systems Review of Systems: Yes all other systems are reviewed and are negative Constitutional Constitutional: Denies chills and Denies fever(s) ENT Ears, Nose, Mouth, and Throat: Denies dizziness Cardiovascular Cardiovascular: Denies chest pain, Denies palpitations and Denies dyspnea Respiratory Respiratory: Denies cough and Denies dyspnea Neurologic Neurologic: Denies dizziness Endocrine Endocrine: Denies palpitations Physical Exam 2 Vital Signs: Vital Signs: Last Vital Signs Temp 99 F 10/26/23 12:46 Pulse 67 10/26/23 12:46 Resp 16 10/26/23 12:46 BP 128/59 L 10/26/23 12:46 Pulse Ox 95 10/26/23 12:46 O2 Del Method Room Air 10/26/23 12:46 BMI result Body Mass Index 27.6 Const: General: cooperative, comfortable, no acute distress, alert and awake Nutritional Appearance: average body habitus Orientation/consciousness: p atient oriented x3 Resp: Effort & Inspection: normal respiratory effort, able to speak in complete sentences, no respiratory distress and no use of accessory muscles Cardio: Rate: regular rate GI: Inspection: No distended Palpation (GI): Soft to palpation Neuro: General: patient oriented x3 and moves all extremities Extrem: General: Yes no pedal edema Objective Data Active Medications Acetaminophen (Acetaminophen 325 Mg Tablet) 650 mg PO Q6H PRN PRN Reason: Pain, Mild (Pain Scale 1-3), fever or headache Amitriptyline HCl (Amitriptyline Hcl 50 Mg Tablet) 50 mg PO BEDTIME [facility] Last Admin: 10/25/23 22:31 Dose: Not Given Documented By: SUZETTE Non-Admin Reason: Patient Refused Aspirin (Aspirin Enteric Coated 81 Mg Tablet.) 81 mg PO DAILY [facility] Last Admin: 10/26/23 09:34 Dose: 81 mg Documented By: TREMAINE Atorvastatin Calcium (Atorvastatin Calcium 80 Mg Tablet) 80 mg PO BEDTIME [facility] Last Admin: 10/25/23 21:15 Dose: 80 mg Documented By: AALIYAH Calcium Carbonate (Calcium Carbonate 750 Mg Tab.Chew) 750 mg PO Q4H PRN PRN Reason: Heartburn Carvedilol (Carvedilol 25 Mg Tablet) 25 mg PO BID [facility]; Protocol Last Admin: 10/26/23 09:34 Dose: 25 mg Documented By: TREMAINE Clopidogrel Bisulfate (Clopidogrel Bisulfate 75 Mg Tablet) 75 mg PO DAILY [facility] Last Admin: 10/26/23 09:34 Dose: 75 mg Documented By: TREMAINE Escitalopram Oxalate (Escitalopram Oxalate 20 Mg Tablet) 20 mg PO DAILY@1800 [facility] Last Admin: 10/25/23 18:51 Dose: 20 mg Documented By: BARTOLO Heparin Sodium (Porcine) (Heparin Sodium,Porcine 5,000 Unit/Ml Vial) 2,600 unit IVPUSH PROTOCOL BOLUS PRN; Protocol PRN Reason: 40 unit/kg - Heparin Protocol Heparin Sodium (Porcine) (Heparin Sodium,Porcine 5,000 Unit/Ml Vial) 5,100 unit IVPUSH PROTOCOL BOLUS PRN; Protocol PRN Reason: 80 unit/kg - Heparin Protocol Hydralazine HCl (Hydralazine Hcl 50 Mg Tablet) 50 mg PO TID [facility]; Protocol Last Admin: 10/26/23 09:36 Dose: 50 mg Documented By: TREMAINE Hydrochlorothiazide (Hydrochlorothiazide 25 Mg Tablet) 25 mg PO DAILY [facility] Last Admin: 10/26/23 09:34 Dose: 25 mg Documented By: TREMAINE Heparin Sodium/Sodium Chloride (Heparin Sodium,Porcine/1/2ns) 25,000 unit in 250 mls @ 0 mls/hr IVCONT .Q0M [facility]; Protocol Last Titration: 10/26/23 12:07 Dose: 12 units/kg/hr, 7.68 mls/hr Documented By: TREMAINE Co-signed By: MATEO Lisinopril (Lisinopril 40 Mg Tablet) 40 mg PO DAILY [facility]; Protocol Last Admin: 10/26/23 09:35 Dose: 40 mg Documented By: TREMAINE Magnesium Hydroxide (Milk Of Magnesia 30 Ml Oral.Susp) 30 ml PO DAILY PRN PRN Reason: Constipation Melatonin (Melatonin 3 Mg Tablet) 6 mg PO BEDTIME PRN PRN Reason: Insomnia Mirtazapine (Mirtazapine 15 Mg Tablet) 45 mg PO BEDTIME [facility] Last Admin: 10/25/23 22:31 Dose: Not Given Documented By: SUZETTE Non-Admin Reason: Patient Refused Multivitamins/Vitamin C (Multivitamin Tablet) 1 tab PO DAILY [facility] Last Admin: 10/26/23 09:35 Dose: 1 tab Documented By: TREMAINE Nifedipine (Nifedipine Er 90 Mg Tab.Er.24) 90 mg PO BEDTIME [facility]; Protocol Last Admin: 10/25/23 21:14 Dose: 90 mg Documented By: AALIYAH Ondansetron HCl (Ondansetron Hcl 4 Mg/2 Ml Vial) 4 mg IVPUSH Q8H PRN PRN Reason: Nausea and Vomiting Last Admin: 10/25/23 21:19 Dose: 4 mg Documented By: AALIYAH Oxycodone HCl (Oxycodone Hcl Immed Release 5 Mg Tablet) 5 mg PO Q4H PRN PRN Reason: Severe Pain (Scale Score 7-10) Last Admin: 10/25/23 19:58 Dose: 5 mg Documented By: AALIYAH Pantoprazole Sodium (Pantoprazole Sodium 20 Mg Tablet.Dr) 40 mg PO DAILY@0630 PRN PRN Reason: Heartburn Sodium Chloride (0.9 % Sodium Chloride Flush 3 Ml Syringe) 3 ml IVFLUSH QSHIFT [facility] Last Admin: 10/26/23 09:30 Dose: Not Given Documented By: TREMAINE Non-Admin Reason: IV Running Spironolactone (Spironolactone 25 Mg Tablet) 25 mg PO DAILY [facility] Last Admin: 10/26/23 09:34 Dose: 25 mg Documented By: TREMAINE Labs 10/26/23 06:22 10/26/23 06:22 Labs: Laboratory Results - last 24 hr 10/25/23 10/26/23 10/26/23 20:03 00:20 06:22 MCV 87.2 MCH 29.4 MCHC 33.7 RDW 13.1 Plt Count 263 MPV 9.3 L Absolute Nucleated RBC 0.000 Nucleated RBC % (auto) 0.0 aPTT Heparin Protocol 36.0 L 58.8 D Anion Gap 12 Estim Creat Clear Calc 49.8 Estimated GFR 57 POC Glucose 212 H Random Glucose 201 H Calcium 8.8 D Total Bilirubin 0.4 AST 11 ALT 9 Alkaline Phosphatase 76 Total Protein 5.5 L Albumin 3.0 L Urine Color Urine Appearance Urine pH Ur Specific [place] Urine Protein Urine Glucose (UA) Urine Ketones Urine Blood Urine Nitrite Ur Leukocyte Esterase Urine RBC Urine WBC Ur Squamous Epith Cells Urine Bacteria Hyaline Casts 10/26/23 10/26/23 09:21 11:10 MCV MCH MCHC RDW Plt Count MPV Absolute Nucleated RBC Nucleated RBC % (auto) aPTT Heparin Protocol 59.5 Anion Gap Estim Creat Clear Calc Estimated GFR POC Glucose Random Glucose Calcium Total Bilirubin AST ALT Alkaline Phosphatase Total Protein Albumin Urine Color Yellow Urine Appearance Clear Urine pH 6.0 Ur Specific [place] 1.015 Urine Protein 300 (3+) H Urine Glucose (UA) Negative Urine Ketones Negative Urine Blood Negative Urine Nitrite Negative Ur Leukocyte Esterase Negative Urine RBC 0-2 Urine WBC 0-5 Ur Squamous Epith Cells 0-2 Urine Bacteria None Seen Hyaline Casts 0-2 Assessment and Plan (1) Hypertensive crisis: Status: Acute Plan 62-year-old female with multiple medical issues including CAD, PAD - status post left fem-pop bypass, difficult to control hypertension who presents with symptomatic hypertension, which has now improved, however she is noted to have elevated troponins and EKG changes. Hence she will be placed under observation for further evaluation. NSTEMI likely type 2 due to elevated blood pressure; no WMA on echo continue heparin x 48hours Continue aspirin, Plavix, statin likely outpatient stress test Hypertensive urgency bp improved, symptoms resolved Previously documented to be noncompliant, however patient endorses compliance at this time Reports recent changes in her antihypertensives BP improved with 1 dose of IV hydralazine continue her baseline meds - lisinopril, Coreg, aldactone, nifedipine, HCTZ and hydralazine CAD/PVD Continue DAPT plus statin DM Metformin, pioglitazone, Tresiba on hold Diabetic diet follow POCs, SSI mood Continue baseline medication Full code DVT prophylaxis, heparin drip Quality Stroke Does the patient have a stroke diagnosis?: No VTE Prior VTE?: No VTE Risk Level:: Medical - moderate - high VTE Device Contraindication: Treatment Not Indicated VTE Drug Contraindication: N/A - Med Ordered
[2023-10-26 16:55] LABS: Glucose, Whole Blood 184 mg/dL (60-115)
[2023-10-26] MEDS: oxyCODONE HCl Immed Release 5 MG TABLET PO (17:10)
[2023-10-26] MEDS: Insulin Lispro 100 UNIT/ML 3 ML VIAL SUBCUT ×2 (17:11→21:50)
[2023-10-26] MEDS: Escitalopram Oxalate 20 MG TABLET PO (17:11)
[2023-10-26 20:00] VITALS: BP 153/67; PULSE 63; RESP 18; TEMP 36.3; O2SAT 95
[2023-10-26 20:54] LABS: Glucose, Whole Blood 159 mg/dL (60-115)
[2023-10-26] MEDS: Atorvastatin Calcium 80 MG TABLET PO (21:50)
[2023-10-26] MEDS: Mirtazapine 15 MG TABLET 45 MG PO (21:50)
[2023-10-26] MEDS: NIFEdipine ER 90 MG TAB.ER.24 PO (21:50)
[2023-10-26] MEDS: Amitriptyline HCl 50 MG TABLET PO (21:56)
[2023-10-26 23:49] VITALS: BP 147/68; PULSE 53; RESP 18; TEMP 36.3; O2SAT 96
[2023-10-27] MEDS: 0.9 % Sodium Chloride Flush 3 ML SYRINGE IVFLUSH ×2 (00:08→08:19)
[2023-10-27] MEDS: Heparin Sodium,Porcine/1/2NS 25,000 UNIT/250 ML IV.SOLN 7.68 UNIT IVCONT (02:03)
[2023-10-27 04:00] VITALS: BP 120/57; PULSE 64; RESP 18; TEMP 36.6; O2SAT 97
[2023-10-27 06:30] LABS: Hematocrit 30.7 % (37.0-47.0); Hemoglobin 10.3 g/dl (12.0-16.0); Mean Corpuscular HGB Conc 33.6 g/dl (31.0-35.0); Mean Corpuscular Hemoglobin 29.8 pg (27.0-33.0); Mean Corpuscular Volume 88.7 fL (80.0-98.0); Mean Platelet Volume 8.9 fL (9.4-12.3); Platelet Count 222 X10*3/uL (160-400); Red Blood Count 3.46 X10*6/uL (4.20-5.50); White Blood Count 6.3 X10*3/uL (4.8-10.8)
[2023-10-27 06:39] LABS: PTT Heparin Drip 36.4 SEC (53-77.9)
[2023-10-27] MEDS: Heparin Sodium,Porcine 5,000 UNIT/ML VIAL 5100 UNIT IVPUSH (07:08)
[2023-10-27 07:43] LABS: Glucose, Whole Blood 158 mg/dL (60-115)
[2023-10-27 08:00] VITALS: BP 140/61; PULSE 63; RESP 18; TEMP 36.9; O2SAT 98
[2023-10-27] MEDS: Aspirin Enteric Coated 81 MG TABLET.DR PO (08:17)
[2023-10-27] MEDS: Multivitamin TABLET 1 TAB PO (08:17)
[2023-10-27] MEDS: Clopidogrel Bisulfate 75 MG TABLET PO (08:18)
[2023-10-27] MEDS: carvediloL 25 MG TABLET PO (08:18)
[2023-10-27] MEDS: lisinopriL 40 MG TABLET PO (08:18)
[2023-10-27] MEDS: hydroCHLOROthiazide 25 MG TABLET PO (08:18)
[2023-10-27] MEDS: Spironolactone 25 MG TABLET PO (08:18)
[2023-10-27] MEDS: hydrALAZINE HCl 50 MG TABLET PO (08:18)
[2023-10-27] MEDS: Insulin Lispro 100 UNIT/ML 3 ML VIAL SUBCUT (08:19)
--- NOTE | 2023-10-27 10:39 | P.DS_ITS ---
DS: Providers Provider Date of Service: 10/27/23 Date of admission: 10/25/23 12:23 Date of discharge: 10/27/23 Primary care physician: Radha Jamison DO Consults: 10/25/23 09:37 Consult to Cardiology Routine Consulting Provider: [facility] Reason for consultation: chest pain, elevated htn, ekg changes, elevated trop Attending physician on discharge: Lion Ha Discharging clinician: Anna Gonzalez DS: Diagnosis Discharge Diagnosis (1) Hypertensive crisis: Status: Acute (2) Fibromuscular dysplasia of renal artery: Status: Acute DS: Summary Hospital Course Hospital Course: From H&P on the day of admission The patient is a 62-year-old female with a past medical history of CAD, PVD status post left fem-pop bypass and subsequent angioplasty, insulin-dependent diabetes mellitus with neuropathy, hypertension, history of osteomyelitis, headaches who presents to the emergency room with complaints of dizziness, headache and elevated blood pressure readings at home. The patient has had a similar admission to this last months at which time she a dmitted intermittent noncompliance with her medications. However, today she reports compliance with her antihypertensives. She does report that they were changed about 2 weeks ago and the doses were increased, however she is not sure about the exact changes. Furthermore she endorses that she takes medications multiple times throughout the day including at bedtime. She states that she may have taken her a dose antidepressant instead of her antihypertensives yesterday evening. In the emergency room, the patient was found to have blood pressure readings as high as 240/120. She was treated with IV hydralazine 20 mg x 1, IV Zofran, IV morphine, Tylenol and aspirin. Her troponins which were initially 3.6 pj to 15.4 followed by 99.4. She had ST/T-wave changes on EKG, which now seem impr fredrick. Her case was discussed by the ED provider with the on-call linemarker. She will now be placed under observation for further evaluation. Patient is seen and examined in the emergency room around 09:00 with machine operator hop picker services. She reports feeling back to baseline. She denies any headaches or chest pain. She is displeased with the plan for further evaluation in the hospital, however after explanation she is in agreement. NSTEMI likely type 2 due to elevated blood pressure; no WMA on echo. Initially treated with heparin drip but given no wall motion abnormality on echocardiogram and likely due to demand from hypertensive urgency cardiology recommended to stop heparin drip. She was Continued on aspirin, Plavix, statin. She should follow- up with Cardiology as an outpatient for probable outpatient stress test. Hypertensive urgency bp improved, symptoms resolved after improvement in blood pressure. She received a dose of IV hydralazine and then was continued on her baseline medication. Hydralazine dose was titrated up to 50 mg TID. Blood pressure has significantly improved. The importance of medication compliance was discussed Time Attestation Discharge Coordination Time (in mins): 40 Quality: Safe Use of Opioids Does Pt have an Active Cancer Diagnosis on the Problem List?: No Quality: Stroke Does the patient have a stroke diagnosis?: No Physical Exam Vital Signs: Vital Signs: Last Vital Signs Temp 98.4 F 10/27/23 08:00 Pulse 63 10/27/23 08:00 Resp 18 10/27/23 08:00 BP 140/61 H 10/27/23 08:00 Pulse Ox 98 10/27/23 08:00 O2 Del Method Room Air 10/27/23 08:00 BMI result Body Mass Index 27.6 Const: General: cooperative, comfortable, alert and awake Nutritional Appearance: average body habitus Orientation/consciousness: patient oriented x3 Resp: Effort & Inspection: normal respiratory effort, able to speak in complete sentences, no respiratory distress and no use of accessory muscles Cardio: Rate: regular rate GI: Inspection: No distended Palpation (GI): Soft to palpation Neuro: General: patient oriented x3 and moves all extremities Extrem: General: Yes no pedal edema DS: Data Data Completed and Pending Completed studies during hospitalization [Text1]: Procedures Extirpation of Matter from Left Femoral Artery, Open Approach (05/09/20) Extirpation of Matter from Left Popliteal Artery, Open Approach (05/09/20) Extirpation of Matter from Right Common Carotid Artery, Open Approach (11/28/22) Fluoroscopy of Aorta and Bilateral Lower Extremity Arteries (05/09/20) Insertion of Infusion Device into Superior Vena Cava, Percutaneous Approach (05/09/20) Supplement Left Femoral Artery with Synthetic Substitute, Open Approach (05/09/20) Supplement Left Popliteal Artery with Synthetic Substitute, Open Approach (05/09/20) Supplement Right Common Carotid Artery with Synthetic Substitute, Open Approach (11/28/22) Transfusion of Nonautologous Red Blood Cells into Peripheral Vein, Percutaneous Approach (05/09/20) Labs on day of discharge: Laboratory Results - last 24 hr 10/26/23 10/26/23 10/26/23 11:10 16:50 20:47 WBC RBC Hgb Hct MCV MCH MCHC RDW Plt Count MPV Absolute Nucleated RBC Nucleated RBC % (auto) aPTT Heparin Protocol 59.5 POC Glucose 184 H 159 H 10/27/23 10/27/23 06:19 07:37 WBC 6.3 RBC 3.46 L Hgb 10.3 L Hct 30.7 L MCV 88.7 MCH 29.8 MCHC 33.6 RDW 13.0 Plt Count 222 MPV 8.9 L Absolute Nucleated RBC 0.000 Nucleated RBC % (auto) 0.0 aPTT Heparin Protocol 36.4 L D POC Glucose 158 H Discharge Plan Discharge Anticipated Discharge Date/Time: 10/27/23 10:54 Patient Disposition: Home, Self-Care Discharge Diagnosis: Type 2 NSTEMI hypertensive crisis Referrals: Radha Jamison DO [Primary Care Provider] - 1 Week Ghanshyam Daniel MD [Physician] - 1 Week Discharge Medications: New hydralazine 50 mg Tablet 50 mg PO TID 90 Days Qty: 270 0RF Protocol: Hold for SBP< HOLD for SBP < : 90 Continued pioglitazone 15 mg tablet 15 mg PO DAILY 30 Days Qty: 30 11RF metformin 1,000 mg Tablet 1,000 mg PO BID clopidogrel [Plavix] 75 mg tablet 75 mg PO DAILY Qty: 30 5RF acetaminophen [Arthritis Pain Relief (acetam)] 650 mg Tablet Extended Release 650 mg PO Q8H PRN (Reason: Pain (Scale Score 1-3)) amitriptyline 50 mg tablet 50 mg PO BEDTIME fluticasone propionate 110 mcg/actuation Hfa Aerosol Inhaler 2 puff INHALATION BID PRN (Reason: Shortness Of Breath Or Wheezing) carvedilol [Coreg] 25 mg tablet 25 mg PO BID Qty: 60 0RF Rx Instructions: must administer with a meal/food lisinopril 40 mg tablet 40 mg PO DAILY Qty: 30 0RF spironolacton-hydrochlorothiaz 25-25 mg tablet 1 tab PO DAILY nifedipine 90 mg Tablet Extended Release 24hr 90 mg PO BEDTIME omeprazole 40 mg Capsule,Delayed Release(Dr/Ec) 40 mg PO DAILY@0630 PRN (Reason: Heartburn) multivitamin Tablet 1 tab PO DAILY gabapentin 800 mg tablet 800 mg PO BEDTIME PRN (Reason: Pain) aspirin [Adult Low Dose Aspirin] 81 mg tablet,delayed release (DR/EC) 81 mg PO DAILY escitalopram oxalate [Lexapro] 20 mg tablet 20 mg PO DAILY@1800 mirtazapine 45 mg tablet 45 mg PO BEDTIME atorvastatin [Lipitor] 80 mg tablet 80 mg PO BEDTIME Tresiba FlexTouch U-100 100 unit/mL (3 mL) insulin pen 10 unit subcut DAILY Asmanex HFA 100 mcg/actuation HFA aerosol inhaler 2 puff inhalation BID oxycodone 5 mg tablet 5 mg PO 5XD PRN (Reason: Severe Pain (Scale Score 7-10)) Discontinued hydralazine 25 mg tablet 25 mg PO TID Qty: 90 0RF No Action (DME) FreeStyle Lite Strips Strip See Rx Instructions Not Applicable QID Qty: 10 Rx Instructions: As directed Activity on Discharge: As tolerated Stand Alone Forms: Patient Portal Discharge page Print Language: Slovak Care Plan Goals: see below Health Concerns: Type 2 NSTEMI due to hypertensive crisis Plan of Treatment: Take all blood pressure medications as prescribed call to schedule follow up appointment with cardiology for outpatient stress test call to schedule follow-up appointment with PCP Assessment: see discharge summary
--- NOTE | 2023-10-27 11:10 | MHC.CM.PN ---
Pt is medically cleared for discharge home with resumption of previous [facility] services, pt has arranged for her own transportation home today.
[2023-10-27 11:36] LABS: Glucose, Whole Blood 139 mg/dL (60-115)
--- NOTE | 2023-10-27 11:59 | PM.PNCARD ---
Subjective Subjective Date of Service: 10/27/23 Interval history: Seen examined at bedside. Feeling better. Blood pressure improving. No symptoms. Physical Exam Vital Signs: Last Vital Signs Temp 98.4 F 10/27/23 08:00 Pulse 63 10/27/23 08:00 Resp 18 10/27/23 08:00 BP 140/61 H 10/27/23 08:00 Pulse Ox 98 10/27/23 08:00 O2 Del Method Room Air 10/27/23 08:00 BMI result Body Mass Index 27.6 GENERAL APPEARANCE: in no acute distress, pleasant. NECK: no jugular venous distention. Right carotid endarterectomy scar. SKIN: no suspicious lesions, warm and dry. HEART: no murmurs, regular rate and rhythm. LUNGS: clear to auscultation bilaterally. ABDOMEN: soft, nontender. EXTREMITIES: no edema. PERIPHERAL PULSES: equal. NEUROLOGIC: No gross deficits, AAO X 3 Objective Labs and Meds 10/27/23 06:19 10/26/23 06:22 Lab results: Laboratory Results - last 24 hr 10/26/23 10/26/23 10/27/23 16:50 20:47 06:19 WBC 6.3 RBC 3.46 L Hgb 10.3 L Hct 30.7 L MCV 88.7 MCH 29.8 MCHC 33.6 RDW 13.0 Plt Count 222 MPV 8.9 L Absolute Nucleated RBC 0.000 Nucleated RBC % (auto) 0.0 aPTT Heparin Protocol 36.4 L D POC Glucose 184 H 159 H 10/27/23 10/27/23 07:37 11:31 WBC RBC Hgb Hct MCV MCH MCHC RDW Plt Count MPV Absolute Nucleated RBC Nucleated RBC % (auto) aPTT Heparin Protocol POC Glucose 158 H 139 H Progress Note: A&P Assessment and plan (1) Elevated troponin: Status: Acute (2) Hypertensive emergency: Status: Resolved Plan 62-year-old female presenting with hypertensive emergency with significantly elevated blood pressures and dynamic EKG changes. She ruled in for NSTEMI. ECHO is showing normal biventricular function. No obvious wall motion abnormalities. I think this is a type 2 [place] due to significant elevation of blood pressure. Continue with the dual antiplatelet therapy. Blood pressure is improving. I think heparin can be stopped. As blood pressure improves we can discharge her and we will do outpatient stress testing on her. She has known coronary disease in the past and had a moderate RCA stenosis in 2016. At that time she did not have any significant disease in other vessels. She is stable after blood pressure control. Given known history of coronary disease and NSTEMI in the setting of elevated blood pressure-I have discussed with her about doing a diagnostic angiogram. She is agreeable and we will arrange this as outpatient. She can be discharged back home today. Thank you for allowing me to participate in the care of your patient. Please feel free to contact me if you have any questions. Time Spent With Patient Time: Total time managing care of this patient today ____ minutes. Progress Note: Quality Stroke Does the patient have a stroke diagnosis?: No Procedures Date of Service Date of Service: 10/27/23
[2023-10-27 12:00] VITALS: BP 125/60; PULSE 62; RESP 18; TEMP 36.3; O2SAT 100
== END 2023-10-27 12:51 | disposition home health service (06) | DRG 199 ==
LOC: HO.ED 10-25 06:38 → HO.EDOVER 10-25 09:44 → HO.IMC 10-25 19:55
PROVIDERS: Nurse Practitioner Family; Admitting Provider Family Medicine; Emergency Provider Internal Medicine; PCP Family Medicine; Referring Provider Family Medicine; Visit Provider Physician Assistant Medical
DX: I16.0 Hypertensive urgency (principal); I21.A1 Myocardial infarction type 2; E11.40 Type 2 diabetes mellitus with diabetic neuropathy, unspecified; E11.51 Type 2 diabetes mellitus with diabetic peripheral angiopathy without gangrene; I10 Essential (primary) hypertension; I25.10 Atherosclerotic heart disease of native coronary artery without angina pectoris; I70.202 Unspecified atherosclerosis of native arteries of extremities, left leg; F17.210 Nicotine dependence, cigarettes, uncomplicated; G47.33 Obstructive sleep apnea (adult) (pediatric); Z71.6 Tobacco abuse counseling; Z79.4 Long term (current) use of insulin; Z79.02 Long term (current) use of antithrombotics/antiplatelets; Z79.82 Long term (current) use of aspirin; Z79.84 Long term (current) use of oral hypoglycemic drugs; Z79.899 Other long term (current) drug therapy
CPT/HCPCS: 36415; 70450; 80053; 81001; 82947; 84484; 85025; 85027; 85610; 85730; 93005; 93306; 99285; J0360; J1644; J1650; J2270; J2405; Q9957

== ENCOUNTER → 2023-10-25 09:39 | Outpatient (BNV) | payer MEDICAID, SELFPAY | PROVIDERS: Admitting Provider Family Medicine; Emergency Provider Internal Medicine; PCP Family Medicine; Visit Provider Family Medicine | DX: I16.9 Hypertensive crisis, unspecified (principal); I77.3 Arterial fibromuscular dysplasia | CPT/HCPCS: 99222; 99233; 99239 ==

== ENCOUNTER → 2023-10-25 12:23 | Outpatient (BNV) | payer MEDICAID, SELFPAY | PROVIDERS: Admitting Provider Family Medicine; Emergency Provider Internal Medicine; PCP Family Medicine; Visit Provider Internal Medicine Cardiovascular Disease | DX: R79.89 Other specified abnormal findings of blood chemistry (principal); I16.1 Hypertensive emergency | CPT/HCPCS: 93306; 99223; 99233 ==

== ENCOUNTER 2023-11-05 23:01 | Emergency (ER) | payer MEDICAID, SELFPAY ==
--- NOTE | 2023-11-05 23:02 | ECG_ITS ---
Test Reason : chest pain Blood Pressure : / mmHG Vent. Rate : 100 BPM Atrial Rate : 100 BPM P-R Int : 132 ms QRS Dur : 090 ms QT Int : 346 ms P-R-T Axes : 032 -05 126 degrees QTc Int : 446 ms Normal sinus rhythm Left ventricular hypertrophy with repolarization abnormality ( R in aVL , Logan product ) Abnormal ECG When compared with ECG of 25-OCT-2023 14:31, Nonspecific T wave abnormality no longer evident in Inferior leads T wave inversion less evident in Lateral leads Referred By: Generic ED Physician Electronically Signed By:KARON SABA
[2023-11-05 23:11] VITALS: BP 217/96; PULSE 105; O2SAT 98
[2023-11-05 23:13] VITALS: BP 197/79; PULSE 103; RESP 16; TEMP 37; O2SAT 100; BMI 26.2
[2023-11-05 23:21] LABS: MANUAL DIFF FLAG NO
[2023-11-05 23:27] LABS: Basophils Absolute Auto 0.1 X10*3/uL (0.0-0.2); Basophils Percent Auto 0.7 % (0-2); Eosinophils Absolute Auto 0.2 X10*3/uL (0.0-0.4); Eosinophils Percent Auto 2.8 % (0-4); Hematocrit 34.2 % (37.0-47.0); Hemoglobin 11.4 g/dl (12.0-16.0); Imm Gran Abs Auto 0.02 X10*3/uL (0.00-0.03); Imm Gran Pct Auto 0.2 % (0.0-0.4); Lymphocytes Absolute Auto 2.2 X10*3/uL (1.2-4.9); Lymphocytes Percent Auto 26.8 % (20-40); Mean Corpuscular HGB Conc 33.3 g/dl (31.0-35.0); Mean Corpuscular Hemoglobin 29.8 pg (27.0-33.0); Mean Corpuscular Volume 89.3 fL (80.0-98.0); Monocytes Absolute Auto 0.5 X10*3/uL (0.1-1.2); Neutrophils Absolute Auto 5.2 x10*3/uL (2.0-8.3); Neutrophils Percent Auto 63.5 % (45-73); Platelet Count 331 X10*3/uL (160-400); Red Blood Count 3.83 X10*6/uL (4.20-5.50); Red Cell Distribution Width 13.2 % (11.0-16.0); White Blood Count 8.2 X10*3/uL (4.8-10.8)
--- NOTE | 2023-11-05 23:30 | ED_ITS ---
HPI - General Adult General Chief complaint: Chest Pain Stated complaint: Headache, CP, HTN, 20 L ac, 324ASA, 0.4 nitro Time Seen by Provider: 11/05/23 23:08 Source: patient Mode of arrival: EMS Limitations: no limitations History of Present Illness ED Provider: eric METZ narrative: Patient's history of hypertension anxiety and migraine under increased stress at home with daughter moved from [place] to her house a month ago been fighting and today especially got upset started complaining of headache got pressure went high to 257/117 on arrival it was 184/75 complaining of headache chest pain body aches received nitro by EMS mild chest pain at this time complaining of headache and stress Related Data Home Medications ?Medication ?Instructions ?Recorded ?Confirmed metformin 1,000 mg tablet 1,000 mg PO BID 12/22/19 10/25/23 aspirin 81 mg tablet,delayed 81 mg PO DAILY 01/02/20 10/25/23 release (Adult Low Dose Aspirin) atorvastatin 80 mg tablet (Lipitor) 80 mg PO BEDTIME 01/02/20 10/25/23 escitalopram oxalate 20 mg tablet 20 mg PO DAILY@1800 01/02/20 10/25/23 (Lexapro) gabapentin 800 mg tablet 800 mg PO BEDTIME PRN Pain 01/02/20 10/25/23 mirtazapine 45 mg tablet 45 mg PO BEDTIME 01/02/20 10/25/23 multivitamin 1 tab PO DAILY 01/02/20 10/25/23 acetaminophen 650 mg 650 mg PO Q8H PRN Pain (Scale 01/16/21 10/25/23 tablet,extended release (Arthritis Score 1-3) Pain Relief (acetaminophen) ER) blood sugar diagnostic (FreeStyle #10 ea 03/30/21 10/25/23 Lite Strips) insulin degludec 100 unit/mL (3 10 unit subcut DAILY 10/03/22 10/25/23 mL) subcutaneous pen (Tresiba FlexTouch U-100 insulin) amitriptyline 50 mg tablet 50 mg PO BEDTIME 11/07/22 10/25/23 mometasone 100 mcg/actuation HFA 2 puff inhalation BID 06/12/23 10/25/23 aerosol inhaler (Asmanex HFA) oxycodone 5 mg tablet 5 mg PO 5XD PRN Severe Pain (Scale 06/12/23 10/25/23 Score 7-10) fluticasone propionate 110 2 puff inhalation BID PRN 09/11/23 10/25/23 mcg/actuation HFA aerosol inhaler Shortness Of Breath Or Wheezing nifedipine 90 mg tablet,extended 90 mg PO BEDTIME 10/25/23 10/25/23 release 24 hr omeprazole 40 mg capsule,delayed 40 mg PO DAILY@0630 PRN Heartburn 10/25/23 10/25/23 release spironolactone 25 1 tab PO DAILY 10/25/23 10/25/23 mg-hydrochlorothiazide 25 mg tablet Previous Rx's ?Medication ?Instructions ?Recorded clopidogrel 75 mg tablet (Plavix) 75 mg PO DAILY #30 tabs 12/02/20 pioglitazone 15 mg tablet 15 mg PO DAILY 30 days #30 tabs 12/02/20 carvedilol 25 mg tablet (Coreg) 25 mg PO BID #60 tabs 09/11/23 lisinopril 40 mg tablet 40 mg PO DAILY #30 tabs 09/11/23 hydralazine 50 mg tablet 50 mg PO TID 90 days #270 tabs 10/27/23 lorazepam 1 mg tablet (Ativan) 1 mg PO BEDTIME PRN anxiety/sleep 11/06/23 #10 tabs Allergies Allergy/AdvReac Type Severity Reaction Status Date / Time latex [LATEX] Allergy Severe RASH Verified 11/05/23 23:15 naproxen [From NAPROSYN] AdvReac Intermediate TACHYCARDIA Verified 11/05/23 23:15 Review of Systems 2 Review of Systems: Yes all other systems are reviewed and are negative [facility] Past Medical History Medical History NSTEMI (non-ST elevated myocardial infarction) Mild aortic valve stenosis LORE (obstructive sleep apnea) Chronic low back pain Lumbar spinal stenosis HTN (hypertension) Vitamin D deficiency HLD (hyperlipidemia) T2DM (type 2 diabetes mellitus) H. pylori infection CAD (coronary artery disease) Cyst (solitary) of breast Kidney calculi Arthritis Asthma HTN (hypertension) Diabetes Surgical History History of right-sided carotid endarterectomy (~11/2022) S/P aortogram History of esophagogastroduodenoscopy (EGD) Hx of colonoscopy History of breast surgery History of cardiac cath Family History Family History Mother Diabetes Liver cancer Social History Social History Household Members: Children Household Members Other:: friend and adult son Housing: Apartment Are you a primary career development coordinator/teacher to a significant other at home: No Do you presently have visiting nurse or other home services: Yes (RN 2x/week) Alcohol intake: never Comment: refuses bed alarm Patient Tobacco Use Status: Current everyday Tobacco user Tobacco use type: Cigarette Cigarette Packs Per Day: 1 Cigarettes Per Day: 4 Years Smoked: 30 e-Cigarette/Vaping Use: Currently Using Second Hand Smoke Exposure: Yes Advance Directives: Yes Advance Directives on File: Yes Advance Directives Date on File: 09/26/23 service: No Current occupational status: unemployed and disabled Physical Exam ED Vital Signs: Vital Signs - 24 hr 11/05/23 23:13 11/06/23 00:39 11/06/23 02:35 Temperature 98.6 F 97.9 F 97.9 F Pulse Rate 103 H 84 78 Respiratory Rate 16 15 12 Blood Pressure 197/79 H 179/69 H 149/66 H Pulse Oximetry 100 99 98 Oxygen Delivery Method Room Air Room Air Room Air 11/06/23 04:47 Temperature 98.6 F Pulse Rate 75 Respiratory Rate 14 Blood Pressure 133/58 L Pulse Oximetry 96 Oxygen Delivery Method Room Air BMI result Body Mass Index 26.2 Appearance: Alert. Oriented X3. No acute distress. Eyes: PERRLA, No Nystagmus ENT: Pharynx normal. Oral Mucosa moist Neck: Normal inspection. Neck supple. CVS: Normal heart rate and rhythm. Pulses normal. Respiratory: No respiratory distress. Equal air entry bilateral, no wheezing/rales/rhonchi Abdomen: Soft and nontender. Bowel sounds are present, no mass palpable, no CVA tenderness Skin: Skin warm and dry. Normal skin color. Normal skin turgor. Extremities: No lower extremity edema. No calf tenderness Neuro: Oriented X 3. No motor deficit. No sensory deficit.No cerebellar signs , cranial nerves II-XII intact Medications Administered Discontinued Medications Generic Name Dose Route Start Last Admin Trade Name Freq PRN Reason Stop Dose Admin Acetaminophen/Butalbital/Caffeine 1 tab 11/05/23 23:43 11/06/23 01:10 Butalb/Acetamin/Caff 50/325/40 Tablet PO 11/05/23 23:44 1 tab ONCE ONE Administration Lorazepam 1 mg 11/05/23 23:43 11/06/23 01:10 Lorazepam 1 Mg Tablet PO 11/05/23 23:44 1 mg ONCE ONE Administration Medical Decision Making Medical Decision Making [facility] Narrative: Patient felt better after Fioricet and Ativan slept all night blood pressure improved will discharge patient home on Ativan and Fioricet for headaches and anxiety Differential Diagnosis Differential Diagnoses: The differential diagnosis associated with the presentation includes Lab Data [facility] Lab Attestation statement: I reviewed the patient's lab results. 11/05/23 23:13 11/05/23 23:13 Labs: Lab Results 11/05/23 Range/Units 23:13 WBC 8.2 (4.8-10.8) X10*3/uL RBC 3.83 L (4.20-5.50) X10*6/uL Hgb 11.4 L (12.0-16.0) g/dl Hct 34.2 L (37.0-47.0) % MCV 89.3 (80.0-98.0) fL MCH 29.8 (27.0-33.0) pg MCHC 33.3 (31.0-35.0) g/dl RDW 13.2 (11.0-16.0) % Plt Count 331 D (160-400) X10*3/uL MPV 9.0 L (9.4-12.3) fL Immature Gran % (Auto) 0.2 (0.0-0.4) % Neut % (Auto) 63.5 (45-73) % Lymph % (Auto) 26.8 (20-40) % Mcleod % (Auto) 6.0 (2-11) % Eos % (Auto) 2.8 (0-4) % Baso % (Auto) 0.7 (0-2) % Lymph # (Auto) 2.2 (1.2-4.9) X10*3/uL Mcleod # (Auto) 0.5 (0.1-1.2) X10*3/uL Eos # (Auto) 0.2 (0.0-0.4) X10*3/uL Baso # (Auto) 0.1 (0.0-0.2) X10*3/uL Abs Immat Gran (auto) 0.02 (0.00-0.03) X10*3/uL Absolute Neuts (auto) 5.2 (2.0-8.3) x10*3/uL Absolute Nucleated RBC 0.000 (0.0-0.012) X10*3/uL Nucleated RBC % (auto) 0.0 (0.0-0.2) /100WBC Sodium 141 (135-145) mmol/L Potassium 4.3 (3.3-5.1) mmol/L Chloride 107 (96-108) mmol/L Carbon Dioxide 25 (22-29) mmol/L Anion Gap 13 (12-20) BUN 22 H (9-16) mg/dL Creatinine 1.30 (0.5-1.4) mg/dL Estim Creat Clear Calc 40.2 Estimated GFR 42 Random Glucose 237 H (60-115) mg/dL Calcium 9.4 D (8.4-10.2) mg/dL Troponin I High Sens 5.3 D (<3.5-17.0) ng/L Discharge Plan Discharge Clinical Impression: Anxiety, Headache, migraine Patient Disposition: Home, Self-Care Instructions: Migraine Headache (ED), Anxiety (ED) Additional Instructions: Rest at home Tylenol for headache Take medication for sleep and anxiety as prescribed Prescriptions: New lorazepam [Ativan] 1 mg tablet 1 mg PO BEDTIME PRN (Reason: anxiety/sleep) Qty: 10 0RF No Action pioglitazone 15 mg tablet 15 mg PO DAILY 30 Days Qty: 30 11RF metformin 1,000 mg Tablet 1,000 mg PO BID clopidogrel [Plavix] 75 mg tablet 75 mg PO DAILY Qty: 30 5RF acetaminophen [Arthritis Pain Relief (acetam)] 650 mg Tablet Extended Release 650 mg PO Q8H PRN (Reason: Pain (Scale Score 1-3)) amitriptyline 50 mg tablet 50 mg PO BEDTIME fluticasone propionate 110 mcg/actuation Hfa Aerosol Inhaler 2 puff INHALATION BID PRN (Reason: Shortness Of Breath Or Wheezing) carvedilol [Coreg] 25 mg tablet 25 mg PO BID Qty: 60 0RF Rx Instructions: must administer with a meal/food lisinopril 40 mg tablet 40 mg PO DAILY Qty: 30 0RF spironolacton-hydrochlorothiaz 25-25 mg tablet 1 tab PO DAILY nifedipine 90 mg Tablet Extended Release 24hr 90 mg PO BEDTIME omeprazole 40 mg Capsule,Delayed Release(Dr/Ec) 40 mg PO DAILY@0630 PRN (Reason: Heartburn) hydralazine 50 mg Tablet 50 mg PO TID 90 Days Qty: 270 0RF Protocol: Hold for SBP< HOLD for SBP < : 90 multivitamin Tablet 1 tab PO DAILY gabapentin 800 mg tablet 800 mg PO BEDTIME PRN (Reason: Pain) aspirin [Adult Low Dose Aspirin] 81 mg tablet,delayed release (DR/EC) 81 mg PO DAILY escitalopram oxalate [Lexapro] 20 mg tablet 20 mg PO DAILY@1800 mirtazapine 45 mg tablet 45 mg PO BEDTIME atorvastatin [Lipitor] 80 mg tablet 80 mg PO BEDTIME Tresiba FlexTouch U-100 100 unit/mL (3 mL) insulin pen 10 unit subcut DAILY (DME) FreeStyle Lite Strips Strip See Rx Instructions Not Applicable QID Qty: 10 Rx Instructions: As directed Asmanex HFA 100 mcg/actuation HFA aerosol inhaler 2 puff inhalation BID oxycodone 5 mg tablet 5 mg PO 5XD PRN (Reason: Severe Pain (Scale Score 7-10)) Print Language: Tristanian
[2023-11-05 23:41] LABS: Anion Gap 13 (12-20); Blood Urea Nitrogen 22 mg/dL (9-16); Calcium 9.4 mg/dL (8.4-10.2); Carbon Dioxide 25 mmol/L (22-29); Chloride 107 mmol/L (96-108); Creatinine Clr Calc Pharmacy 40.2; Estimated Glomerular Filt Rate 42; Glucose Random 237 mg/dL (60-115); Potassium 4.3 mmol/L (3.3-5.1); Sodium 141 mmol/L (135-145)
[2023-11-05 23:46] LABS: Troponin-I High Sensitivity 5.3 ng/L (<3.5-17.0)
[2023-11-06 00:39] VITALS: BP 179/69; PULSE 84; RESP 15; TEMP 36.6; O2SAT 99
[2023-11-06] MEDS: LORazepam 1 MG TABLET PO (01:10)
[2023-11-06] MEDS: Butalb/Acetamin/Caff 50/325/40 TABLET 1 TAB PO (01:10)
--- NOTE | 2023-11-06 01:12 | PC.NURSE ---
Pt medicated per APR for 7/10 pain to head.
[2023-11-06 02:35] VITALS: BP 149/66; PULSE 78; RESP 12; TEMP 36.6; O2SAT 98
[2023-11-06 04:47] VITALS: BP 133/58; PULSE 75; RESP 14; TEMP 37; O2SAT 96
[2023-11-06 07:24] VITALS: BP 128/71; PULSE 70; RESP 16; TEMP 36.8; O2SAT 97
[2023-11-06 07:25] VITALS: BP 128/71; PULSE 70; RESP 16; TEMP 36.8; O2SAT 97
== END 2023-11-06 07:35 | disposition home or self-care (01) ==
PROVIDERS: Emergency Provider Internal Medicine
DX: G43.909 Migraine, unspecified, not intractable, without status migrainosus (principal); F41.9 Anxiety disorder, unspecified; R07.9 Chest pain, unspecified; I10 Essential (primary) hypertension; E11.8 Type 2 diabetes mellitus with unspecified complications; I25.2 Old myocardial infarction; Z79.899 Other long term (current) drug therapy
CPT/HCPCS: 36415; 80048; 84484; 85025; 93005; 99284

== ENCOUNTER 2023-11-10 14:19 | Outpatient (AMB) | payer MEDICAID, SELFPAY ==
--- NOTE | 2023-11-10 14:17 | HO.NEPHOV ---
Vital Signs 11/10/23 14:18 11/10/23 14:32 Height 5 ft Weight 142 lb BMI 27.7 BP 150/66 H 140/60 H Blood Pressure Location Lt brachial Position Sitting Pulse 81 Pulse Source Pulse Oximeter Pulse Oximetry (%) 97 Oxygen Delivery Method Room Air Intake Visit Reasons: Missed 11/01 appointment/Conf Electrical Checkout Mechanic Required: Yes Electrical Checkout Mechanic Name: [id number] alona Accompanied by: Self / Same As Patient Allergies latex [LATEX] Allergy (Severe, Verified 11/10/23 14:20) RASH naproxen [From NAPROSYN] Adverse Reaction (Intermediate, Verified 11/10/23 14:20) TACHYCARDIA Medication List - Last Reconciled 11/10/23 by Pratik Horn MD acetaminophen ER (Arthritis Pain Relief (acetaminophen) ER) 650 mg PO Q8H PRN amitriptyline 50 mg PO BEDTIME aspirin (Adult Low Dose Aspirin) 81 mg PO DAILY atorvastatin (Lipitor) 80 mg PO BEDTIME blood sugar diagnostic (FreeStyle Lite Strips) As directed carvedilol (Coreg) 25 mg PO BID clopidogrel (Plavix) 75 mg PO DAILY escitalopram oxalate (Lexapro) 20 mg PO DAILY@1800 fluticasone propionate 110 mcg/actuation 2 puffs inhalation BID PRN gabapentin 800 mg PO BEDTIME PRN hydralazine 50 mg See Protocol PO TID 90 days insulin degludec (Tresiba FlexTouch U-100 insulin) 10 units subcut DAILY lisinopril 40 mg PO DAILY lorazepam (Ativan) 1 mg PO BEDTIME PRN metformin 1,000 mg PO BID mirtazapine 45 mg PO BEDTIME mometasone 100 mcg/actuation (Asmanex HFA) 2 puffs inhalation BID multivitamin 1 tab PO DAILY nifedipine ER 90 mg PO BEDTIME omeprazole 40 mg PO DAILY@0630 PRN oxycodone 5 mg PO 5XD PRN pioglitazone 15 mg PO DAILY 30 days spironolacton-hydrochlorothiaz 25-25 mg 1 tab PO DAILY HPI Comments Details: . Rocío is a 62-year-old woman with a significant vascular disease and resistant hypertension. She is on multiple antihypertensive medications in the blood pressure is still suboptimal. She did not bring her list of medications. However from the available data it appears that she is on amlodipine 10 mg carvedilol 25 mg twice a day clonidine patch, hydralazine 50 mg t.i.d. lisinopril 40 mg and hydrochlorothiazide 25 mg. She tells me that she has been compliant with her medications. There is a question of renal artery stenosis. However she had a Doppler ultrasound a year ago which was inconclusive however she had a CT angiogram in 2021 which did not reveal any significant renal artery stenosis. She has normal renal function with a creatinine of less than 1. She has non nephrotic range proteinuria with a urine protein creatinine ratio revealing 1000 mg of protein excretion. She has carotid artery disease with 60-70% mid RCA stenosis History of peripheral vascular disease status post fem-pop bypass surgery and left femoral endarterectomy and left popliteal thrombectomy. She has a history of smoking for many years. She continues to smoke half a pack per day. She has dyslipidemia with a total cholesterol of 240 and LDL of 165. She is on atorvastatin 80 mg daily. 07/27/2023. She is accompanied by her daughter. She is tolerating Aldactazide. Yesterday her blood pressure was around 200 mm Hg systolic. However she did not take her medications yesterday. Today she is feeling fine office readings are excellent. Renal angiogram is still pending 08/21/2023. Accompanied by her daughter. She tells me that her blood pressure increases every time she takes hydralazine therefore she stopped taking hydralazine. At present she is on lisinopril 40 mg and Aldactazide 25/25 1 a day. Upon talking to her I am not sure if she is really taking her medications. She was scheduled for renal angiogram next week. No specific complaints today 11/10/2023. She underwent renal angiogram which did not reveal any stenosis of large arteries. He was in the ER twice with elevated blood pressure. She was scheduled for coronary angiogram next month in [facility]. She did not bring her medications today but it was cross checked with pharmacy [facility] Medical History NSTEMI (non-ST elevated myocardial infarction) Mild aortic valve stenosis LORE (obstructive sleep apnea) Chronic low back pain Lumbar spinal stenosis HTN (hypertension) Vitamin D deficiency HLD (hyperlipidemia) T2DM (type 2 diabetes mellitus) H. pylori infection CAD (coronary artery disease) Cyst (solitary) of breast Kidney calculi Arthritis Asthma HTN (hypertension) Diabetes Surgical History History of right-sided carotid endarterectomy (~11/2022) S/P aortogram History of esophagogastroduodenoscopy (EGD) Hx of colonoscopy History of breast surgery History of cardiac cath Family History Mother Diabetes Liver cancer Social History Household Members: Children Household Members Other:: friend and adult son Housing: Apartment Are you a primary child care to a significant other at home: No Do you presently have visiting nurse or other home services: Yes (RN 2x/week) Alcohol intake: never Comment: refuses bed alarm Patient Tobacco Use Status: Current everyday Tobacco user Tobacco use type: Cigarette Cigarette Packs Per Day: 1 Cigarettes Per Day: 4 Years Smoked: 30 e-Cigarette/Vaping Use: Currently Using Second Hand Smoke Exposure: Yes Advance Directives Date on File: 09/26/23 service: No Current occupational status: unemployed and disabled Physical Exam Vital Signs: Last Vital Signs Pulse 81 11/10/23 14:18 BP 140/60 H 11/10/23 14:32 Pulse Ox 97 11/10/23 14:18 Oxygen Delivery Method Room Air 11/10/23 14:18 BMI result Body Mass Index 27.7 Results Reviewed Nephrology Results: Hgb 11.4 g/dl (12.0-16.0) L 11/05/23 WBC 8.2 X10*3/uL (4.8-10.8) 11/05/23 Plt Count 331 X10*3/uL (160-400) 11/05/23 Sodium 141 mmol/L (135-145) 11/05/23 Potassium 4.3 mmol/L (3.3-5.1) 11/05/23 Chloride 107 mmol/L (96-108) 11/05/23 Carbon Dioxide 25 mmol/L (22-29) 11/05/23 BUN 22 mg/dL (9-16) H 11/05/23 Creatinine 1.30 mg/dL (0.5-1.4) 11/05/23 Calcium 9.4 mg/dL (8.4-10.2) 11/05/23 Urine Protein 300 (3+) mg/dL (Neg-Trace) H 10/26/23 Assessment & Plan Assessment & Plan (1) HTN (hypertension): Code(s): I10 - Essential (primary) hypertension Category: Medical (2) PVD (peripheral vascular disease): Code(s): I73.9 - Peripheral vascular disease, unspecified Category: Medical (3) T2DM (type 2 diabetes mellitus): Code(s): E11.9 - Type 2 diabetes mellitus without complications Category: Medical Qualifiers: Diabetes mellitus complication detail: with diabetic retinopathy Diabetes mellitus complication status: with ophthalmic complications Diabetes mellitus ferry terminal supervisor insulin use: without ferry terminal supervisor use Diabetes mellitus macular edema: with macular edema Diabetic retinopathy severity: with mild nonproliferative retinopathy Laterality: bilateral Qualified Code(s): E11.3213 - Type 2 diabetes mellitus with mild nonproliferative diabetic retinopathy with macular edema, bilateral (4) Proteinuria: Code(s): R80.9 - Proteinuria, unspecified Category: Medical (5) Anemia: Code(s): D64.9 - Anemia, unspecified Category: Medical Plan . Rocío has a resistant hypertension in a setting of significant vascular disease. She probably has underlying renal artery stenosis. Back in 2021 renal angiogram did not reveal any stenosis. However the ultrasonogram was inconclusive. Based on the history and clinical findings we still need to rule out renal artery stenosis. renal angiogram. NO stenosis of large vessels ( August 2023 ) Today the blood pressure is acceptable no changes were made. Follow renal function and potassium 24 hour ambulatory blood pressure monitoring was incomplete and results are inconclusive I discussed low-salt diet and smoking cessation again. At present renal function is stable. She has non nephrotic range proteinuria most likely due to hypertensive diabetic kidney disease. She is at risk for ongoing renal injury from suboptimally controlled blood pressure. Continue to maximize CHERRI inhibition for renal protection. She will benefit from SGLT2 inhibitors. . Coding Level of Care Code Est Pt Level 4 (05651) Diagnoses Hypertension, unspecified type I10 PVD (peripheral vascular disease) I73.9 Type 2 diabetes mellitus with both eyes affected by mild nonproliferative retinopathy and macular edema, without long-term current use of insulin E11.3213 Diabetes mellitus complication detail: with diabetic retinopathy Diabetes mellitus complication status: with ophthalmic complications Diabetes mellitus ferry terminal supervisor insulin use: without group home use Diabetes mellitus macular edema: with macular edema Diabetic retinopathy severity: with mild nonproliferative retinopathy Laterality: bilateral Proteinuria R80.9 Anemia D64.9
[2023-11-10 14:18] VITALS: BP 150/66; PULSE 81; O2SAT 97; BMI 27.7
[2023-11-10 14:32] VITALS: BP 140/60
== END 2023-11-10 14:36 | disposition home or self-care (01) ==
PROVIDERS: PCP Family Medicine; Visit Provider Internal Medicine Hypertension Specialist
DX: I1A.0 Resistant hypertension (principal); I73.9 Peripheral vascular disease, unspecified; E11.3213 Type 2 diabetes mellitus with mild nonproliferative diabetic retinopathy with macular edema, bilateral; R80.9 Proteinuria, unspecified; D64.9 Anemia, unspecified
CPT/HCPCS: 99214

== ENCOUNTER → 2023-11-10 14:19 | Outpatient (BNVA) | payer MEDICAID, SELFPAY | PROVIDERS: PCP Family Medicine; Visit Provider Internal Medicine Hypertension Specialist | DX: I73.9 Peripheral vascular disease, unspecified (principal); I10 Essential (primary) hypertension; E11.3213 Type 2 diabetes mellitus with mild nonproliferative diabetic retinopathy with macular edema, bilateral; R80.9 Proteinuria, unspecified; D64.9 Anemia, unspecified | CPT/HCPCS: 99212 ==

== ENCOUNTER 2023-11-11 00:07 | Emergency (ER) | payer MEDICAID, SELFPAY ==
--- NOTE | ~2023-11-11 | XR_ITS ---
EXAMINATION: XR CHEST CLINICAL INFORMATION: Chest pain. COMPARISON: September 20, 2023. TECHNIQUE: Frontal view of the chest was obtained. FINDINGS: The lung volumes are low. The cardiomediastinal silhouette is stable. A left mid lung field likely calcified granuloma again seen. The lungs are otherwise clear. No other significant pleural effusions. The bony structures and the soft tissues are unremarkable. XR/XR chest 1V IMPRESSION: No acute cardiopulmonary process. Electronically signed by: Kunal Barlow MD 11/11/2023 12:41 AM EDT
--- NOTE | 2023-11-11 00:18 | ECG_ITS ---
Test Reason : chest pain Blood Pressure : / mmHG Vent. Rate : 083 BPM Atrial Rate : 083 BPM P-R Int : 130 ms QRS Dur : 080 ms QT Int : 384 ms P-R-T Axes : 057 000 156 degrees QTc Int : 451 ms Normal sinus rhythm Left ventricular hypertrophy with repolarization abnormality ( R in aVL ) Abnormal ECG When compared with ECG of 05-NOV-2023 23:02, T wave amplitude has decreased in Lateral leads Referred By: Generic ED Physician Electronically Signed By:KARON SABA
[2023-11-11 00:20] VITALS: BP 154/59; BP 165/65; PULSE 84; PULSE 93; RESP 16; TEMP 36.7; O2SAT 100; O2SAT 99; BMI 27.4
--- NOTE | 2023-11-11 00:32 | MHC.EDTECH ---
ekg machine having technical difficulties, first ekg try was at 0016 had to restart machine 2 times. second ekg done and saved for 0023
[2023-11-11 00:44] LABS: MANUAL DIFF FLAG NO
[2023-11-11 00:46] LABS: Basophils Percent Auto 0.5 % (0-2); Eosinophils Absolute Auto 0.2 X10*3/uL (0.0-0.4); Eosinophils Percent Auto 2.2 % (0-4); Hematocrit 29.6 % (37.0-47.0); Hemoglobin 10.2 g/dl (12.0-16.0); Imm Gran Abs Auto 0.02 X10*3/uL (0.00-0.03); Imm Gran Pct Auto 0.3 % (0.0-0.4); Lymphocytes Percent Auto 25.6 % (20-40); Mean Corpuscular HGB Conc 34.5 g/dl (31.0-35.0); Mean Corpuscular Hemoglobin 30.3 pg (27.0-33.0); Mean Corpuscular Volume 87.8 fL (80.0-98.0); Mean Platelet Volume 9.2 fL (9.4-12.3); Monocytes Absolute Auto 0.5 X10*3/uL (0.1-1.2); Monocytes Percent Auto 6.1 % (2-11); Neutrophils Percent Auto 65.3 % (45-73); Platelet Count 278 X10*3/uL (160-400); Red Blood Count 3.37 X10*6/uL (4.20-5.50); Red Cell Distribution Width 13.3 % (11.0-16.0); White Blood Count 7.7 X10*3/uL (4.8-10.8)
--- NOTE | 2023-11-11 00:50 | ED.CHESTPAIN ---
HPI - Chest Pain General Chief Complaint: Chest Pain Stated Complaint: CHEST PAIN Time Seen by Provider: 11/11/23 00:50 Source: patient Mode of arrival: ambulatory Limitations: no limitations History of Present Illness ED Provider: Dr. Lynn HPI narrative: This is a 62yo female with CAD, PAD sp femoral bypass, DM, HTN noncompliant with medication who presents with chest pain. Related Data Home Medications ?Medication ?Instructions ?Recorded ?Confirmed metformin 1,000 mg tablet 1,000 mg PO BID 12/22/19 11/10/23 aspirin 81 mg tablet,delayed 81 mg PO DAILY 01/02/20 11/10/23 release (Adult Low Dose Aspirin) atorvastatin 80 mg tablet (Lipitor) 80 mg PO BEDTIME 01/02/20 11/10/23 escitalopram oxalate 20 mg tablet 20 mg PO DAILY@1800 01/02/20 11/10/23 (Lexapro) gabapentin 800 mg tablet 800 mg PO BEDTIME PRN Pain 01/02/20 11/10/23 mirtazapine 45 mg tablet 45 mg PO BEDTIME 01/02/20 11/10/23 multivitamin 1 tab PO DAILY 01/02/20 11/10/23 acetaminophen 650 mg 650 mg PO Q8H PRN Pain (Scale 01/16/21 11/10/23 tablet,extended release (Arthritis Score 1-3) Pain Relief (acetaminophen) ER) blood sugar diagnostic (FreeStyle #10 ea 03/30/21 10/25/23 Lite Strips) insulin degludec 100 unit/mL (3 10 unit subcut DAILY 10/03/22 11/10/23 mL) subcutaneous pen (Tresiba FlexTouch U-100 insulin) amitriptyline 50 mg tablet 50 mg PO BEDTIME 11/07/22 11/10/23 mometasone 100 mcg/actuation HFA 2 puff inhalation BID 06/12/23 11/10/23 aerosol inhaler (Asmanex HFA) oxycodone 5 mg tablet 5 mg PO 5XD PRN Severe Pain (Scale 06/12/23 11/10/23 Score 7-10) fluticasone propionate 110 2 puff inhalation BID PRN 09/11/23 11/10/23 mcg/actuation HFA aerosol inhaler Shortness Of Breath Or Wheezing nifedipine 90 mg tablet,extended 90 mg PO BEDTIME 10/25/23 11/10/23 release 24 hr omeprazole 40 mg capsule,delayed 40 mg PO DAILY@0630 PRN Heartburn 10/25/23 11/10/23 release spironolactone 25 1 tab PO DAILY 11/10/23 11/10/23 mg-hydrochlorothiazide 25 mg tablet Previous Rx's ?Medication ?Instructions ?Recorded clopidogrel 75 mg tablet (Plavix) 75 mg PO DAILY #30 tabs 12/02/20 pioglitazone 15 mg tablet 15 mg PO DAILY 30 days #30 tabs 12/02/20 carvedilol 25 mg tablet (Coreg) 25 mg PO BID #60 tabs 09/11/23 lisinopril 40 mg tablet 40 mg PO DAILY #30 tabs 09/11/23 hydralazine 50 mg tablet 50 mg PO TID 90 days #270 tabs 10/27/23 lorazepam 1 mg tablet (Ativan) 1 mg PO BEDTIME PRN anxiety/sleep 11/06/23 #10 tabs Allergies Allergy/AdvReac Type Severity Reaction Status Date / Time latex [LATEX] Allergy Severe RASH Verified 11/11/23 00:24 naproxen [From NAPROSYN] AdvReac Intermediate TACHYCARDIA Verified 11/11/23 00:24 Review of Systems Review of Systems: Yes all other systems are reviewed and are negative Neurologic: Denies Sensory deficit (Neuro) [facility] Past Medical History Medical History NSTEMI (non-ST elevated myocardial infarction) Mild aortic valve stenosis LORE (obstructive sleep apnea) Chronic low back pain Lumbar spinal stenosis HTN (hypertension) Vitamin D deficiency HLD (hyperlipidemia) T2DM (type 2 diabetes mellitus) H. pylori infection CAD (coronary artery disease) Cyst (solitary) of breast Kidney calculi Arthritis Asthma HTN (hypertension) Diabetes Surgical History History of right-sided carotid endarterectomy (~11/2022) S/P aortogram History of esophagogastroduodenoscopy (EGD) Hx of colonoscopy History of breast surgery History of cardiac cath Family History Family History Mother Diabetes Liver cancer Social History Social History Household Members: Children Household Members Other:: friend and adult son Housing: Apartment Are you a primary healthcare customer service to a significant other at home: No Do you presently have visiting nurse or other home services: Yes (RN 2x/week) Alcohol intake: never Comment: refuses bed alarm Patient Tobacco Use Status: Current everyday Tobacco user Tobacco use type: Cigarette Cigarette Packs Per Day: 1 Cigarettes Per Day: 4 Years Smoked: 30 Smoked in Last 30 Days: No e-Cigarette/Vaping Use: Currently Using Second Hand Smoke Exposure: Yes Use of substances other than those prescribed or required for medical reasons: No Advance Directives: Yes Advance Directives on File: Yes Advance Directives Date on File: 09/26/23 Do you have a plan to hurt others: No Plan service: No Current occupational status: unemployed and disabled Physical Exam Vital Signs: Vital Signs: Last Vital Signs Temp 98.0 F 11/11/23 00:20 Pulse 75 11/11/23 02:45 Resp 20 11/11/23 02:45 BP 147/69 H 11/11/23 02:45 Pulse Ox 95 11/11/23 02:45 O2 Del Method Room Air 11/11/23 02:45 BMI result Body Mass Index 27.4 Const: Other: female looking much older than stated age Nutritional Appearance: average body habitus Orientation/consciousness: oriented to person and patient oriented x3 Limitations: no limitations HEENT: Head: Yes normal to inspection Ears: external ears normal General nose exam: Normal external nose present Mouth: Normal oral and palatal mucosa present and oropharynx normal Throat: Yes posterior oropharynx normal Eyes: General: appearance normal, both eyes and all related structures Neck: Other: supple Neck: Yes normal visual inspection Chest: Chest palpation & inspection: normal inspection of the chest Resp: Auscultation: clear to auscultation bilaterally Cardio: Jugular venous distension: no JVD Rate: regular rate Rhythm: regular rhythm Heart sounds: S1 normal heart sound present and S2 normal heart sound present GI: Inspection: Yes normal to inspection Palpation (GI): Soft to palpation, nontender and No hepatosplenomegaly present Auscultation: normal bowel sounds : General: Yes no CVA tenderness Back/Spine/Pelvis: Back: no CVA tenderness Skin: General skin exam: no rashes or lesions noted Neuro: General: oriented to person and patient oriented x3 Cranial nerves: Yes CN's II-XII intact bilaterally Motor exam (neuro): 5/5 motor strength present throughout Sensory Exam: No Sensory deficit (Neuro) Extrem: General: Yes normal to inspection Psych: Appearance: grossly normal Course Reevaluation(s) Reevaluation #1: blood pressure down to 140s systolic, serial enzymes negative for CAD or ischemia Time: 04:52 Medications Administered Discontinued Medications Generic Name Dose Route Start Last Admin Trade Name Nabila PRN Reason Stop Dose Admin Insulin Human Lispro 6 unit 11/11/23 01:04 11/11/23 01:39 Insulin Lispro 100 Unit/Ml 3 Ml Vial SUBCUT 11/11/23 01:05 6 unit ONCE ONE Administration Ketorolac Tromethamine 30 mg 11/11/23 01:04 11/11/23 01:43 Ketorolac Tromethamine 30 Mg/Ml Vial IVPUSH 11/11/23 01:05 30 mg ONCE ONE Administration Medical Decision Making Differential Diagnosis Differential Diagnoses: The differential diagnosis associated with the presentation includes (Hypertensive urgency, essential hypertension, CAD) Admission/Observation Consideration of admission/observation: Escalation of care including admission/observation considered (upon arrival admission was considered) Lab Data 11/11/23 00:39 11/11/23 00:39 Labs: Lab Results 11/11/23 11/11/23 11/11/23 Range/Units 00:39 01:38 02:32 WBC 7.7 (4.8-10.8) X10*3/uL RBC 3.37 L (4.20-5.50) X10*6/uL Hgb 10.2 L (12.0-16.0) g/dl Hct 29.6 L (37.0-47.0) % MCV 87.8 (80.0-98.0) fL MCH 30.3 (27.0-33.0) pg MCHC 34.5 (31.0-35.0) g/dl RDW 13.3 (11.0-16.0) % Plt Count 278 (160-400) X10*3/uL MPV 9.2 L (9.4-12.3) fL Immature Gran % (Auto) 0.3 (0.0-0.4) % Neut % (Auto) 65.3 (45-73) % Lymph % (Auto) 25.6 (20-40) % [place] % (Auto) 6.1 (2-11) % Eos % (Auto) 2.2 (0-4) % Baso % (Auto) 0.5 (0-2) % Lymph # (Auto) 2.0 (1.2-4.9) X10*3/uL [place] # (Auto) 0.5 (0.1-1.2) X10*3/uL Eos # (Auto) 0.2 (0.0-0.4) X10*3/uL Baso # (Auto) 0.0 (0.0-0.2) X10*3/uL Abs Immat Gran (auto) 0.02 (0.00-0.03) X10*3/uL Absolute Neuts (auto) 5.0 (2.0-8.3) x10*3/uL Absolute Nucleated RBC 0.000 (0.0-0.012) X10*3/uL Nucleated RBC % (auto) 0.0 (0.0-0.2) /100WBC Sodium 139 (135-145) mmol/L Potassium 3.7 (3.3-5.1) mmol/L Chloride 107 (96-108) mmol/L Carbon Dioxide 25 (22-29) mmol/L Anion Gap 11 L (12-20) BUN 16 (9-16) mg/dL Creatinine 0.91 (0.5-1.4) mg/dL Estim Creat Clear Calc 54.0 Estimated GFR > 60 POC Glucose 243 H (60-115) mg/dL Random Glucose 272 H (60-115) mg/dL Calcium 8.9 (8.4-10.2) mg/dL Troponin I High Sens 4.0 4.8 (<3.5-17.0) ng/L 11/11/23 Range/Units 02:37 WBC (4.8-10.8) X10*3/uL RBC (4.20-5.50) X10*6/uL Hgb (12.0-16.0) g/dl Hct (37.0-47.0) % MCV (80.0-98.0) fL MCH (27.0-33.0) pg MCHC (31.0-35.0) g/dl RDW (11.0-16.0) % Plt Count (160-400) X10*3/uL MPV (9.4-12.3) fL Immature Gran % (Auto) (0.0-0.4) % Neut % (Auto) (45-73) % Lymph % (Auto) (20-40) % [place] % (Auto) (2-11) % Eos % (Auto) (0-4) % Baso % (Auto) (0-2) % Lymph # (Auto) (1.2-4.9) X10*3/uL [place] # (Auto) (0.1-1.2) X10*3/uL Eos # (Auto) (0.0-0.4) X10*3/uL Baso # (Auto) (0.0-0.2) X10*3/uL Abs Immat Gran (auto) (0.00-0.03) X10*3/uL Absolute Neuts (auto) (2.0-8.3) x10*3/uL Absolute Nucleated RBC (0.0-0.012) X10*3/uL Nucleated RBC % (auto) (0.0-0.2) /100WBC Sodium (135-145) mmol/L Potassium (3.3-5.1) mmol/L Chloride (96-108) mmol/L Carbon Dioxide (22-29) mmol/L Anion Gap (12-20) BUN (9-16) mg/dL Creatinine (0.5-1.4) mg/dL Estim Creat Clear Calc Estimated GFR POC Glucose 221 H (60-115) mg/dL Random Glucose (60-115) mg/dL Calcium (8.4-10.2) mg/dL Troponin I High Sens (<3.5-17.0) ng/L Independent Interpretation I performed an independent interpretation of an: EKG (sinus 83, no st or twave changes) Independent Historian Clinical information obtained from an independent historian. History obtained from or confirmed by: Spouse Chronic Conditions Patient?s care impacted by: Diabetes and Hypertension Social Determinants Patient?s care significantly limited by Social Determinants of Health including: Low income Discharge Plan Discharge Clinical Impression: Hypertension, Chest pain Patient Disposition: Home, Self-Care Instructions: Chest Pain (ED), Hypertension (ED) Prescriptions: No Action pioglitazone 15 mg tablet 15 mg PO DAILY 30 Days Qty: 30 11RF metformin 1,000 mg Tablet 1,000 mg PO BID clopidogrel [Plavix] 75 mg tablet 75 mg PO DAILY Qty: 30 5RF acetaminophen [Arthritis Pain Relief (acetam)] 650 mg Tablet Extended Release 650 mg PO Q8H PRN (Reason: Pain (Scale Score 1-3)) amitriptyline 50 mg tablet 50 mg PO BEDTIME lorazepam [Ativan] 1 mg tablet 1 mg PO BEDTIME PRN (Reason: anxiety/sleep) Qty: 10 0RF fluticasone propionate 110 mcg/actuation Hfa Aerosol Inhaler 2 puff INHALATION BID PRN (Reason: Shortness Of Breath Or Wheezing) carvedilol [Coreg] 25 mg tablet 25 mg PO BID Qty: 60 0RF Rx Instructions: must administer with a meal/food lisinopril 40 mg tablet 40 mg PO DAILY Qty: 30 0RF nifedipine 90 mg Tablet Extended Release 24hr 90 mg PO BEDTIME omeprazole 40 mg Capsule,Delayed Release(Dr/Ec) 40 mg PO DAILY@0630 PRN (Reason: Heartburn) hydralazine 50 mg Tablet 50 mg PO TID 90 Days Qty: 270 0RF Protocol: Hold for SBP< HOLD for SBP < : 90 multivitamin Tablet 1 tab PO DAILY gabapentin 800 mg tablet 800 mg PO BEDTIME PRN (Reason: Pain) aspirin [Adult Low Dose Aspirin] 81 mg tablet,delayed release (DR/EC) 81 mg PO DAILY escitalopram oxalate [Lexapro] 20 mg tablet 20 mg PO DAILY@1800 mirtazapine 45 mg tablet 45 mg PO BEDTIME atorvastatin [Lipitor] 80 mg tablet 80 mg PO BEDTIME Tresiba FlexTouch U-100 100 unit/mL (3 mL) insulin pen 10 unit subcut DAILY (DME) FreeStyle Lite Strips Strip See Rx Instructions Not Applicable QID Qty: 10 Rx Instructions: As directed spironolacton-hydrochlorothiaz 25-25 mg tablet 1 tab PO DAILY Asmanex HFA 100 mcg/actuation HFA aerosol inhaler 2 puff inhalation BID oxycodone 5 mg tablet 5 mg PO 5XD PRN (Reason: Severe Pain (Scale Score 7-10)) Referrals: [place],[facility] [Primary Care Provider] - 3 days Print Language: Stateless
[2023-11-11 01:01] LABS: Anion Gap 11 (12-20); Blood Urea Nitrogen 16 mg/dL (9-16); Calcium 8.9 mg/dL (8.4-10.2); Carbon Dioxide 25 mmol/L (22-29); Chloride 107 mmol/L (96-108); Estimated Glomerular Filt Rate > 60; Glucose Random 272 mg/dL (60-115); Potassium 3.7 mmol/L (3.3-5.1); Sodium 139 mmol/L (135-145)
[2023-11-11] MEDS: Insulin Lispro 100 UNIT/ML 3 ML VIAL 6 UNIT SUBCUT (01:39)
[2023-11-11 01:40] VITALS: BP 157/74; PULSE 74; PULSE 77; RESP 20; O2SAT 98
[2023-11-11] MEDS: Ketorolac Tromethamine 30 MG/ML VIAL IVPUSH (01:43)
[2023-11-11 01:59] LABS: Glucose, Whole Blood 243 mg/dL (60-115)
[2023-11-11 02:41] LABS: Glucose, Whole Blood 221 mg/dL (60-115)
[2023-11-11 02:45] VITALS: BP 147/69; PULSE 75; RESP 20; O2SAT 95
[2023-11-11 02:58] LABS: Troponin-I High Sensitivity 4.8 ng/L (<3.5-17.0)
[2023-11-11 05:02] VITALS: BP 143/68; PULSE 72; RESP 19; TEMP 36.2; O2SAT 100
[2023-11-11 05:30] VITALS: BP 143/68; PULSE 72; RESP 19; TEMP 36.2; O2SAT 100
== END 2023-11-11 05:30 | disposition home or self-care (01) ==
PROVIDERS: Emergency Provider Emergency Medicine
DX: R07.9 Chest pain, unspecified (principal); I10 Essential (primary) hypertension; E11.9 Type 2 diabetes mellitus without complications; I25.10 Atherosclerotic heart disease of native coronary artery without angina pectoris; I73.9 Peripheral vascular disease, unspecified; Z95.1 Presence of aortocoronary bypass graft; Z91.148 Patient's other noncompliance with medication regimen for other reason
CPT/HCPCS: 36415; 71045; 80048; 82947; 84484; 85025; 93005; 96374; 99284; 99285; J1885

== ENCOUNTER 2023-11-12 20:45 | Emergency (ER) | payer MEDICAID, SELFPAY ==
[2023-11-12 20:48] VITALS: BP 198/75; PULSE 99; RESP 18; TEMP 36.7; O2SAT 100; BMI 27.3
--- NOTE | 2023-11-12 20:53 | ECG_ITS ---
Test Reason : CHEST PAIN Blood Pressure : / mmHG Vent. Rate : 091 BPM Atrial Rate : 091 BPM P-R Int : 094 ms QRS Dur : 082 ms QT Int : 368 ms P-R-T Axes : 027 -07 138 degrees QTc Int : 452 ms Sinus rhythm with short RI Left ventricular hypertrophy with repolarization abnormality ( R in aVL ) Abnormal ECG When compared with ECG of 11-NOV-2023 00:23, RI interval has decreased Referred By: Generic ED Physician Electronically Signed By:KARON SABA
[2023-11-12 21:10] LABS: MANUAL DIFF FLAG NO
[2023-11-12 21:11] LABS: Basophils Percent Auto 0.5 % (0-2); Eosinophils Absolute Auto 0.2 X10*3/uL (0.0-0.4); Eosinophils Percent Auto 2.9 % (0-4); Hematocrit 32.2 % (37.0-47.0); Hemoglobin 10.8 g/dl (12.0-16.0); Imm Gran Abs Auto 0.04 X10*3/uL (0.00-0.03); Imm Gran Pct Auto 0.5 % (0.0-0.4); Lymphocytes Absolute Auto 2.3 X10*3/uL (1.2-4.9); Lymphocytes Percent Auto 30.1 % (20-40); Mean Corpuscular HGB Conc 33.5 g/dl (31.0-35.0); Mean Corpuscular Hemoglobin 30.2 pg (27.0-33.0); Mean Corpuscular Volume 89.9 fL (80.0-98.0); Monocytes Absolute Auto 0.5 X10*3/uL (0.1-1.2); Monocytes Percent Auto 6.3 % (2-11); Neutrophils Absolute Auto 4.6 x10*3/uL (2.0-8.3); Neutrophils Percent Auto 59.7 % (45-73); Platelet Count 268 X10*3/uL (160-400); Red Blood Count 3.58 X10*6/uL (4.20-5.50); Red Cell Distribution Width 13.4 % (11.0-16.0); White Blood Count 7.6 X10*3/uL (4.8-10.8)
[2023-11-12 21:28] LABS: IDNOW Serial# 6674DD1D; Strep A Nucleic Acid Negative (Negative)
[2023-11-12 21:31] LABS: Alanine Aminotransferase 9 U/L (0-31); Albumin Level 3.8 g/dL (3.5-5.0); Alkaline Phosphatase 76 U/L (39-117); Anion Gap 12 (12-20); Aspartate Amino Transferase 13 U/L (5-31); Bilirubin Total 0.2 mg/dL (0.0-1.0); Blood Urea Nitrogen 17 mg/dL (9-16); Calcium 9.6 mg/dL (8.4-10.2); Carbon Dioxide 26 mmol/L (22-29); Chloride 108 mmol/L (96-108); Estimated Glomerular Filt Rate > 60; Glucose Random 197 mg/dL (60-115); Magnesium 1.8 mg/dL (1.6-2.6); Potassium 4.5 mmol/L (3.3-5.1); Sodium 141 mmol/L (135-145); Total Protein 6.5 g/dL (6.5-8.0)
[2023-11-12 21:38] LABS: Troponin-I High Sensitivity 5.4 ng/L (<3.5-17.0)
== END 2023-11-13 01:49 | disposition left against medical advice (07) ==
PROVIDERS: Emergency Provider Emergency Medicine
DX: I10 Essential (primary) hypertension (principal)
CPT/HCPCS: 36415; 80053; 83735; 84484; 85025; 87651; 93005; 99281; 99283

== ENCOUNTER 2023-11-15 15:01 | Outpatient (AMB) | payer MEDICAID, SELFPAY ==
[2023-11-15 15:16] VITALS: BP 158/74; PULSE 83; O2SAT 99; BMI 27.9
--- NOTE | 2023-11-15 15:16 | HO.NEPHOV_ITS ---
Vital Signs 11/15/23 15:16 11/15/23 15:29 Height 5 ft Weight 143 lb BMI 27.9 BP 158/74 H 150/78 H Blood Pressure Location Lt brachial Lt brachial Position Sitting Sitting Pulse 83 Pulse Source Pulse Oximeter Pulse Oximetry (%) 99 Oxygen Delivery Method Room Air Intake Visit Reasons: Pt seen at [facility] on 11/12/23/ conf Boiling Tub Operator Required: Yes Boiling Tub Operator Services: Boiling Tub Operator Present Boiling Tub Operator Name: Luis [id number] Accompanied by: Daughter Allergies latex [LATEX] Allergy (Severe, Verified 11/19/23 20:19) RASH naproxen [From NAPROSYN] Adverse Reaction (Intermediate, Verified 11/19/23 20:19) TACHYCARDIA Medication List - Last Reconciled 11/15/23 by Pratik Horn MD aspirin (Adult Low Dose Aspirin) 81 mg PO DAILY atorvastatin (Lipitor) 80 mg PO BEDTIME blood sugar diagnostic (FreeStyle Lite Strips) As directed carvedilol (Coreg) 25 mg PO BID clopidogrel (Plavix) 75 mg PO DAILY escitalopram oxalate (Lexapro) 20 mg PO DAILY@1800 hydralazine 75 mg See Protocol PO TID insulin degludec (Tresiba FlexTouch U-100 insulin) 10 units subcut DAILY lisinopril 40 mg PO DAILY lorazepam (Ativan) 1 mg PO BEDTIME PRN metformin 1,000 mg PO BID mirtazapine 45 mg PO BEDTIME multivitamin 1 tab PO DAILY nifedipine ER 90 mg PO BEDTIME omeprazole 20 mg PO DAILY@0630 PRN pioglitazone 15 mg PO DAILY 30 days HPI Comments Details: . Rocío is a 62-year-old woman with a significant vascular disease and resistant hypertension. She is on multiple antihypertensive medications in the blood pressure is still suboptimal. She did not bring her list of medications. However from the available data it appears that she is on amlodipine 10 mg carvedilol 25 mg twice a day clonidine patch, hydralazine 50 mg t.i.d. lisinopril 40 mg and hydrochlorothiazide 25 mg. She tells me that she has been compliant with her medications. There is a question of renal artery stenosis. However she had a Doppler ultrasound a year ago which was inconclusive however she had a CT angiogram in 2021 which did not reveal any significant renal artery stenosis. She has normal renal function with a creatinine of less than 1. She has non nephrotic range proteinuria with a urine protein creatinine ratio revealing 1000 mg of protein excretion. She has carotid artery disease with 60-70% mid RCA stenosis History of peripheral vascular disease status post fem-pop bypass surgery and left femoral endarterectomy and left popliteal thrombectomy. She has a history of smoking for many years. She continues to smoke half a pack per day. She has dyslipidemia with a total cholesterol of 240 and LDL of 165. She is on atorvastatin 80 mg daily. 07/27/2023. She is accompanied by her daughter. She is tolerating Aldactazide. Yesterday her blood pressure was around 200 mm Hg systolic. However she did not take her medications yesterday. Today she is feeling fine office readings are excellent. Renal angiogram is still pending 08/21/2023. Accompanied by her daughter. She tells me that her blood pressure increases every time she takes hydralazine therefore she stopped taking hydralazine. At present she is on lisinopril 40 mg and Aldactazide 25/25 1 a day. Upon talking to her I am not sure if she is really taking her medications. She was scheduled for renal angiogram next week. No specific complaints today 11/10/2023. She underwent renal angiogram which did not reveal any stenosis of large arteries. He was in the ER twice with elevated blood pressure. She was scheduled for coronary angiogram next month in [facility]. She did not bring her medications today but it was cross checked with pharmacy 11/15/2023. Seen in [facility] 2 days ago. Here for follow up with family. She was scheduled for coronary angiogram in the next few weeks All medications were reviewed [facility] Medical History NSTEMI (non-ST elevated myocardial infarction) Mild aortic valve stenosis LORE (obstructive sleep apnea) Chronic low back pain Lumbar spinal stenosis HTN (hypertension) Vitamin D deficiency HLD (hyperlipidemia) T2DM (type 2 diabetes mellitus) H. pylori infection CAD (coronary artery disease) Cyst (solitary) of breast Kidney calculi Arthritis Asthma HTN (hypertension) Diabetes Surgical History History of right-sided carotid endarterectomy (~11/2022) S/P aortogram History of esophagogastroduodenoscopy (EGD) Hx of colonoscopy History of breast surgery History of cardiac cath Family History Mother Diabetes Liver cancer Social History Household Members: Children Household Members Other:: friend and adult son Housing: Apartment Are you a primary vp care management to a significant other at home: No Do you presently have visiting nurse or other home services: Yes (RN 2x/week) Alcohol intake: never Comment: refuses bed alarm Patient Tobacco Use Status: Current everyday Tobacco user Tobacco use type: Cigarette Cigarette Packs Per Day: 1 Cigarettes Per Day: 4 Years Smoked: 30 e-Cigarette/Vaping Use: Currently Using Second Hand Smoke Exposure: Yes Advance Directives: No Advance Directives Information Provided: No Advance Directives Date on File: 09/26/23 Do you have a plan to hurt others: No Plan service: No Current occupational status: unemployed and disabled Physical Exam Vital Signs: Last Vital Signs Pulse 83 11/15/23 15:16 BP 150/78 H 11/15/23 15:29 Pulse Ox 99 11/15/23 15:16 Oxygen Delivery Method Room Air 11/15/23 15:16 BMI result Body Mass Index 27.9 Results Reviewed Nephrology Results: Hgb 10.8 g/dl (12.0-16.0) L 11/19/23 WBC 7.7 X10*3/uL (4.8-10.8) 11/19/23 Plt Count 277 X10*3/uL (160-400) 11/19/23 Sodium 139 mmol/L (135-145) 11/19/23 Potassium 4.6 mmol/L (3.3-5.1) 11/19/23 Chloride 104 mmol/L (96-108) 11/19/23 Carbon Dioxide 26 mmol/L (22-29) 11/19/23 BUN 24 mg/dL (9-16) H 11/19/23 Creatinine 1.13 mg/dL (0.5-1.4) 11/19/23 Calcium 9.0 mg/dL (8.4-10.2) 11/19/23 Urine Protein 300 (3+) mg/dL (Neg-Trace) H 10/26/23 Assessment & Plan Assessment & Plan (1) HTN (hypertension): Code(s): I10 - Essential (primary) hypertension Category: Medical (2) PVD (peripheral vascular disease): Code(s): I73.9 - Peripheral vascular disease, unspecified Category: Medical (3) Proteinuria: Code(s): R80.9 - Proteinuria, unspecified Category: Medical (4) Anemia: Code(s): D64.9 - Anemia, unspecified Category: Medical (5) T2DM (type 2 diabetes mellitus): Code(s): E11.9 - Type 2 diabetes mellitus without complications Category: Medical Qualifiers: Diabetes mellitus termite control servicer insulin use: without termite control servicer use Diabetes mellitus complication status: with ophthalmic complications Diabetes mellitus complication detail: with diabetic retinopathy Diabetic retinopathy severity: with mild nonproliferative retinopathy Diabetes mellitus macular edema: with macular edema Laterality: bilateral Qualified Code(s): E11.3213 - Type 2 diabetes mellitus with mild nonproliferative diabetic retinopathy with macular edema, bilateral Plan . Rocío has a resistant hypertension in a setting of significant vascular disease. She probably has underlying renal artery stenosis. Back in 2021 renal angiogram did not reveal any stenosis. However the ultrasonogram was inconclusive. Based on the history and clinical findings we still need to rule out renal artery stenosis. renal angiogram. NO stenosis of large vessels ( August 2023 ) Today the blood pressure is acceptable no changes were made. Follow renal function and potassium 24 hour ambulatory blood pressure monitoring was incomplete and results are inconclusive I discussed low-salt diet and smoking cessation again. At present renal function is stable. She has non nephrotic range proteinuria most likely due to hypertensive diabetic kidney disease. She is at risk for ongoing renal injury from suboptimally controlled blood pressure. Continue to maximize CHERRI inhibition for renal protection. She will benefit from SGLT2 inhibitors. . Medications: Changed From hydralazine 50 mg See Protocol PO TID 90 days 270 tabs 0RF To hydralazine 75 mg See Protocol PO TID Coding Level of Care Code Est Pt Level 3 (76097) Diagnoses Hypertension, unspecified type I10 PVD (peripheral vascular disease) I73.9 Proteinuria R80.9 Anemia D64.9 Type 2 diabetes mellitus with both eyes affected by mild nonproliferative retinopathy and macular edema, without long-term current use of insulin E11.3213 Diabetes mellitus termite control servicer insulin use: without care home use Diabetes mellitus complication status: with ophthalmic complications Diabetes mellitus complication detail: with diabetic retinopathy Diabetic retinopathy severity: with mild nonproliferative retinopathy Diabetes mellitus macular edema: with macular edema Laterality: bilateral
[2023-11-15 15:29] VITALS: BP 150/78
== END 2023-11-15 15:33 | disposition home or self-care (01) ==
LOC: HO.HKAM 15:01
PROVIDERS: PCP Family Medicine; Visit Provider Internal Medicine Hypertension Specialist
DX: I1A.0 Resistant hypertension (principal); I73.9 Peripheral vascular disease, unspecified; R80.9 Proteinuria, unspecified; D64.9 Anemia, unspecified; E11.3213 Type 2 diabetes mellitus with mild nonproliferative diabetic retinopathy with macular edema, bilateral
CPT/HCPCS: 99213

== ENCOUNTER → 2023-11-15 15:01 | Outpatient (BNVA) | payer MEDICAID, SELFPAY | PROVIDERS: PCP Family Medicine; Visit Provider Internal Medicine Hypertension Specialist | DX: I1A.0 Resistant hypertension (principal); I73.9 Peripheral vascular disease, unspecified; R80.9 Proteinuria, unspecified; D64.9 Anemia, unspecified; E11.3213 Type 2 diabetes mellitus with mild nonproliferative diabetic retinopathy with macular edema, bilateral | CPT/HCPCS: 99212 ==

== ENCOUNTER 2023-11-19 20:04 | Emergency (ER) | payer MEDICAID, SELFPAY ==
--- NOTE | ~2023-11-19 | XR_ITS ---
EXAMINATION: XR CHEST CLINICAL INFORMATION: Chest pain COMPARISON: 11/11/2023 TECHNIQUE: 2 views of the chest were obtained. FINDINGS: No significant abnormality is noted involving the heart, lungs, mediastinum, bony thorax or soft tissues. A calcified left lower lobe granuloma is present XR/XR chest 2V IMPRESSION: Unremarkable examination. Electronically signed by: Delbert Mcmanus MD 11/19/2023 09:29 PM EDT RP
[2023-11-19 20:17] VITALS: BP 218/102; PULSE 101; RESP 19; TEMP 36.6; O2SAT 100; BMI 27.9
--- NOTE | 2023-11-19 20:21 | ED_ITS ---
HPI - Chest Pain General Chief Complaint: Chest Pain Stated Complaint: hypertension, chest pain Source: patient Mode of arrival: wheelchair Limitations: no limitations History of Present Illness ED Provider: Chanell Rae PA-C HPI narrative: Patient is a 62 year old assigned female at with a history of NSTEMI, HTN, tobacco use, CAD, HLD presenting to the emergency department today with a headache, chest pain, and high blood pressure. Patient states that that over the last 40 minutes she has had a headache, chest pain, and high blood pressure. Patient denies any dizziness, lightheadedness, abdominal pain, nausea, vomiting, fever, chills, blurry vision, double vision, loss of vision, difficulty breathing, shortness of breath, back pain, night sweats, pain with urination, increased urinary frequency, increased urinary urgency, blood in [his/her/their] urine or stool, syncope or a near syncopal episode, recent trauma or falls, bowel incontinence, bladder incontinence, or any other complaints at this time. Related Data Home Medications ?Medication ?Instructions ?Recorded ?Confirmed metformin 1,000 mg tablet 1,000 mg PO BID 12/22/19 11/15/23 aspirin 81 mg tablet,delayed 81 mg PO DAILY 01/02/20 11/15/23 release (Adult Low Dose Aspirin) atorvastatin 80 mg tablet (Lipitor) 80 mg PO BEDTIME 01/02/20 11/15/23 escitalopram oxalate 20 mg tablet 20 mg PO DAILY@1800 01/02/20 11/15/23 (Lexapro) mirtazapine 45 mg tablet 45 mg PO BEDTIME 01/02/20 11/15/23 multivitamin 1 tab PO DAILY 01/02/20 11/15/23 blood sugar diagnostic (FreeStyle #10 ea 03/30/21 11/15/23 Lite Strips) insulin degludec 100 unit/mL (3 10 unit subcut DAILY 10/03/22 11/15/23 mL) subcutaneous pen (Tresiba FlexTouch U-100 insulin) nifedipine 90 mg tablet,extended 90 mg PO BEDTIME 10/25/23 11/15/23 release 24 hr hydralazine 50 mg tablet 75 mg PO TID 11/15/23 11/15/23 omeprazole 40 mg capsule,delayed 20 mg PO DAILY@0630 PRN Heartburn 11/15/23 11/15/23 release Previous Rx's ?Medication ?Instructions ?Recorded clopidogrel 75 mg tablet (Plavix) 75 mg PO DAILY #30 tabs 12/02/20 pioglitazone 15 mg tablet 15 mg PO DAILY 30 days #30 tabs 12/02/20 carvedilol 25 mg tablet (Coreg) 25 mg PO BID #60 tabs 09/11/23 lisinopril 40 mg tablet 40 mg PO DAILY #30 tabs 09/11/23 lorazepam 1 mg tablet (Ativan) 1 mg PO BEDTIME PRN anxiety/sleep 11/06/23 #10 tabs Allergies Allergy/AdvReac Type Severity Reaction Status Date / Time latex [LATEX] Allergy Severe RASH Verified 11/19/23 20:19 naproxen [From NAPROSYN] AdvReac Intermediate TACHYCARDIA Verified 11/19/23 20:19 Review of Systems 2 Constitutional: Constitutional: Reports no additional constitutional complaints, Denies chills, Denies fever(s), Reports headache(s) and Denies night sweats Eyes: Eyes: Reports no additional eye complaints, Denies blurry vision, Denies change in vision, Denies diplopia, Denies eye discharge, Denies loss of vision and Denies eye pain ENT: Denies dizziness and Reports headache(s) Cardiovascular: Cardiovascular: Reports no additional cardiovascular complaints, Reports chest pain, Denies lightheadedness, Denies Loss of Consciousness and Denies dyspnea Respiratory: Respiratory: Reports no additional respiratory complaints and Denies dyspnea Gastrointestinal: Gastrointestinal: Reports no additional gastrointestinal complaints, Denies abdominal pain, Denies melena, Denies hematochezia, Denies change in bowel habits and Denies change in stool character Genitourinary: Genitourinary: Denies hematuria, Denies urinary frequency, Denies dysuria, Denies urinary incontinence, Denies urinary hesitancy and Denies urinary urgency Musculoskeletal: Musculoskeletal: Reports no additional musculoskeletal complaints, Denies numbness and Denies tingling Neurologic: Denies dizziness, Reports headache(s), Denies loss of vision, Denies numbness and Denies tingling Psychiatric: Psychiatric: Reports no additional psychiatric complaints Endocrine: Endocrine: Reports no additional endocrine complaints Hematologic/Lymphatic: Hematologic/Lymphatic: Reports no additional hematologic/lymphatic complaints Allergic/Immunologic: Allergic/Immunologic: Reports no additional allergic/immunologic complaints PMFSH Past Medical History Attestation statement: The following information was validated with the patient. Source: old records reviewed and nursing notes reviewed Medical History NSTEMI (non-ST elevated myocardial infarction) Mild aortic valve stenosis LORE (obstructive sleep apnea) Chronic low back pain Lumbar spinal stenosis HTN (hypertension) Vitamin D deficiency HLD (hyperlipidemia) T2DM (type 2 diabetes mellitus) H. pylori infection CAD (coronary artery disease) Cyst (solitary) of breast Kidney calculi Arthritis Asthma HTN (hypertension) Diabetes Surgical History History of right-sided carotid endarterectomy (~11/2022) S/P aortogram History of esophagogastroduodenoscopy (EGD) Hx of colonoscopy History of breast surgery History of cardiac cath Family History Family History Mother Diabetes Liver cancer Social History Social History Household Members: Children Household Members Other:: friend and adult son Housing: Apartment Are you a primary rn complex care to a significant other at home: No Do you presently have visiting nurse or other home services: Yes (RN 2x/week) Alcohol intake: never Comment: refuses bed alarm Patient Tobacco Use Status: Current everyday Tobacco user Tobacco use type: Cigarette Cigarette Packs Per Day: 1 Cigarettes Per Day: 4 Years Smoked: 30 e-Cigarette/Vaping Use: Currently Using Second Hand Smoke Exposure: Yes Advance Directives: No Advance Directives Information Provided: No Advance Directives Date on File: 09/26/23 Do you have a plan to hurt others: No Plan service: No Current occupational status: unemployed and disabled Physical Exam 2 Vital Signs: Vital Signs: Last Vital Signs Temp 98 F 11/19/23 20:17 Pulse 101 H 11/19/23 20:17 Resp 19 11/19/23 20:17 BP 218/102 H 11/19/23 20:17 Pulse Ox 100 11/19/23 20:17 O2 Del Method Room Air 11/19/23 20:17 BMI result Body Mass Index 27.9 Const: General: cooperative, no acute distress, alert and awake Nutritional Appearance: well nourished Orientation/consciousness: patient oriented x3 Limitations: no limitations HEENT: Head: Yes normal to inspection and Yes atraumatic Ears: hearing grossly normal bilaterally and external ears normal General nose exam: Normal external nose present, no nasal discharge noted and no epistaxis Face and sinus: Yes normal facial exam, No abrasion and No laceration Mouth: Normal oral and palatal mucosa present, no drooling and no muffled voice Eyes: General: appearance normal, both eyes and all related structures P eriorbital: periorbital findings normal Eyelids: Yes eyelids normal C onjunctivae: conjunctivae normal Pupils: Equal, round and reactive pupils present EOM: EOMs intact bilaterally Neck: Neck: Yes normal visual inspection, Yes full ROM and Yes no lymphadenopathy Chest: Chest palpation & inspection: normal inspection of the chest Resp: Effort & Inspection: normal respiratory effort and able to speak in complete sentences GI: Inspection: Yes normal to inspection Neuro: General: patient oriented x3 and moves all extremities Cranial nerves: Yes Equal, round and reactive pupils present Cognition (Neuro): n ormal cognition Extrem: General: Yes normal to inspection, Yes full ROM and Yes capillary refill normal Psych: Appearance: grossly normal Mental Status: mental status grossly normal Affect: normal affect Attitude: cooperative Thought process: N ormal thought process present Thought content: Normal thought content present Insight: Good insight present (Psych) Course Course Course Narrative: RME performed by Chanell Rae PA-C. Patient is a 62 year old assigned female at presenting to the emergency department with a headache, chest pain, and high blood pressure. Detailed physical exam and review of systems are deferred to the tool machine setup operator. EKG, labs, imaging, swabs ordered. Patient placed back in the waiting room pending room availability and results. Medical Decision Making Medical Decision Making MDM Narrative: Patient is a 62 year old assigned female at with a history of NSTEMI, HTN, tobacco use, CAD, HLD presenting to the emergency department today with a headache, chest pain, and high blood pressure. Patient's limited physical exam performed in triage was unremarkable. Patient's blood work was unremarkable. Patient's EKG was unremarkable. Patient's chest x-ray showed no acute process. Patient left the department without completing treatment. Patient left the department before myself or any of the other emergency department clinicians could explain to or review with the patient; physical exam findings, test results, need or lack there of for additional testing, need or lack there of for a procedure to be performed, need or lack there of for hospital admission / transfer, need or lack there of for prescription medication, treatment options, or a treatment plan. Differential Diagnosis Differential Diagnoses: The differential diagnosis associated with the presentation includes NSTEMI STEMI Chest pain Headache HTN urgency HTN emergency Admission/Observation Consideration of admission/observation: Escalation of care including admission/observation considered Patient would have been admitted to the hospital had she completed her work up and it had any findings where hospital admission was appropriate, her clinical presentation warranted hospital admission, had myself or any other emergency department coordinator had the ability to discuss need or lack there of for hospital admission, and the patient hadn't left the department without completing treatment. Lab Data [facility] Lab Attestation statement: I reviewed the patient's lab results. My interpretation of these results are in the [facility] Rationale portion of this note. 11/19/23 20:30 11/19/23 20:30 Labs: Lab Results 11/19/23 Range/Units 20:30 WBC 7.7 (4.8-10.8) X10*3/uL RBC 3.62 L (4.20-5.50) X10*6/uL Hgb 10.8 L (12.0-16.0) g/dl Hct 32.4 L (37.0-47.0) % MCV 89.5 (80.0-98.0) fL MCH 29.8 (27.0-33.0) pg MCHC 33.3 (31.0-35.0) g/dl RDW 13.3 (11.0-16.0) % Plt Count 277 (160-400) X10*3/uL MPV 8.9 L (9.4-12.3) fL Immature Gran % (Auto) 0.4 (0.0-0.4) % Neut % (Auto) 67.4 (45-73) % Lymph % (Auto) 23.0 (20-40) % [place] % (Auto) 5.9 (2-11) % Eos % (Auto) 2.9 (0-4) % Baso % (Auto) 0.4 (0-2) % Lymph # (Auto) 1.8 (1.2-4.9) X10*3/uL [place] # (Auto) 0.5 (0.1-1.2) X10*3/uL Eos # (Auto) 0.2 (0.0-0.4) X10*3/uL Baso # (Auto) 0.0 (0.0-0.2) X10*3/uL Abs Immat Gran (auto) 0.03 (0.00-0.03) X10*3/uL Absolute Neuts (auto) 5.2 (2.0-8.3) x10*3/uL Absolute Nucleated RBC 0.000 (0.0-0.012) X10*3/uL Nucleated RBC % (auto) 0.0 (0.0-0.2) /100WBC Sodium 139 (135-145) mmol/L Potassium 4.6 (3.3-5.1) mmol/L Chloride 104 (96-108) mmol/L Carbon Dioxide 26 (22-29) mmol/L Anion Gap 14 (12-20) BUN 24 H (9-16) mg/dL Creatinine 1.13 (0.5-1.4) mg/dL Estim Creat Clear Calc 43.9 Estimated GFR 49 Random Glucose 210 H (60-115) mg/dL Calcium 9.0 D (8.4-10.2) mg/dL Magnesium 1.8 (1.6-2.6) mg/dL Total Bilirubin 0.2 (0.0-1.0) mg/dL AST 13 (5-31) U/L ALT 10 (0-31) U/L Alkaline Phosphatase 81 (39-117) U/L Troponin I High Sens 7.1 (<3.5-17.0) ng/L Total Protein 6.4 L (6.5-8.0) g/dL Albumin 3.7 (3.5-5.0) g/dL Influenza Type A (PCR) NEGATIVE (Negative) Influenza Type B (PCR) NEGATIVE (Negative) RSV RNA Qual (PCR) NEGATIVE (Negative) SARS-CoV-2 RNA (RT-PCR) NEGATIVE (Negative) Independent Interpretation I performed an independent interpretation of an: EKG and Plain X-Ray Interpretation: My interpretation is in agreement with the radiologist's impression of this imaging study. L EXAMINATION: XR CHEST CLINICAL INFORMATION: Chest pain COMPARISON: 11/11/2023 TECHNIQUE: 2 views of the chest were obtained. FINDINGS: No significant abnormality is noted involving the heart, lungs, mediastinum, bony thorax or soft tissues. A calcified left lower lobe granuloma is present XR/XR chest 2V IMPRESSION: Unremarkable examination. Electronically signed by: Delbert Mcmanus MD 11/19/2023 09:29 PM EDT RP Dictated By: Delbert Mcmanus MD Signed By: Electronically signed by Delbert Mcmanus MD 11/19/23 2129 Vent. Rate: 096 BPM Atrial Rate: 096 BPM P-R Int: 132 ms QRS Dur: 080 ms QT Int: 352 ms P-R-T Axes: 032 -12 124 degrees QTc Int: 444 ms Normal sinus rhythm Left ventricular hypertrophy with repolarization abnormality (R in aVL, [place] product) Abnormal ECG When compared with ECG of 12-NOV-2023 20:49 No significant change was found Electronically Signed By:KARON FLYNN Dictated By: Karon Farmer DO Signed By: Electronically signed by Karon Farmer DO 11/20/23 1149 Radiology Impression Discussion of test interpretation with radiology: I have reviewed the radiologist's reading. Chronic Conditions Patient?s care impacted by: Hypertension Discharge Plan Discharge Clinical Impression: Headache, Chest pain Patient Disposition: Left W/O Completing Treatment Prescriptions: No Action pioglitazone 15 mg tablet 15 mg PO DAILY 30 Days Qty: 30 11RF metformin 1,000 mg Tablet 1,000 mg PO BID clopidogrel [Plavix] 75 mg tablet 75 mg PO DAILY Qty: 30 5RF lorazepam [Ativan] 1 mg tablet 1 mg PO BEDTIME PRN (Reason: anxiety/sleep) Qty: 10 0RF carvedilol [Coreg] 25 mg tablet 25 mg PO BID Qty: 60 0RF Rx Instructions: must administer with a meal/food lisinopril 40 mg tablet 40 mg PO DAILY Qty: 30 0RF nifedipine 90 mg Tablet Extended Release 24hr 90 mg PO BEDTIME omeprazole 40 mg capsule,delayed release(DR/EC) 20 mg PO DAILY@0630 PRN (Reason: Heartburn) multivitamin Tablet 1 tab PO DAILY aspirin [Adult Low Dose Aspirin] 81 mg tablet,delayed release (DR/EC) 81 mg PO DAILY escitalopram oxalate [Lexapro] 20 mg tablet 20 mg PO DAILY@1800 mirtazapine 45 mg tablet 45 mg PO BEDTIME atorvastatin [Lipitor] 80 mg tablet 80 mg PO BEDTIME Tresiba FlexTouch U-100 100 unit/mL (3 mL) insulin pen 10 unit subcut DAILY (DME) FreeStyle Lite Strips Strip See Rx Instructions Not Applicable QID Qty: 10 Rx Instructions: As directed hydralazine 50 mg tablet 75 mg PO TID Protocol: Hold for SBP< HOLD for SBP < : 90 Discharge Date/Time: 11/20/23 05:41
--- NOTE | 2023-11-19 20:21 | ECG_ITS ---
Test Reason : CP Blood Pressure : / mmHG Vent. Rate : 096 BPM Atrial Rate : 096 BPM P-R Int : 132 ms QRS Dur : 080 ms QT Int : 352 ms P-R-T Axes : 032 -12 124 degrees QTc Int : 444 ms Normal sinus rhythm Left ventricular hypertrophy with repolarization abnormality ( R in aVL , [place] product ) Abnormal ECG When compared with ECG of 12-NOV-2023 20:49, No significant change was found Referred By: Chanell Rae Electronically Signed By:KARON SABA
[2023-11-19 20:35] LABS: MANUAL DIFF FLAG NO
[2023-11-19 20:37] LABS: Basophils Percent Auto 0.4 % (0-2); Eosinophils Absolute Auto 0.2 X10*3/uL (0.0-0.4); Eosinophils Percent Auto 2.9 % (0-4); Hematocrit 32.4 % (37.0-47.0); Hemoglobin 10.8 g/dl (12.0-16.0); Imm Gran Abs Auto 0.03 X10*3/uL (0.00-0.03); Imm Gran Pct Auto 0.4 % (0.0-0.4); Lymphocytes Absolute Auto 1.8 X10*3/uL (1.2-4.9); Mean Corpuscular HGB Conc 33.3 g/dl (31.0-35.0); Mean Corpuscular Hemoglobin 29.8 pg (27.0-33.0); Mean Corpuscular Volume 89.5 fL (80.0-98.0); Mean Platelet Volume 8.9 fL (9.4-12.3); Monocytes Absolute Auto 0.5 X10*3/uL (0.1-1.2); Monocytes Percent Auto 5.9 % (2-11); Neutrophils Absolute Auto 5.2 x10*3/uL (2.0-8.3); Neutrophils Percent Auto 67.4 % (45-73); Platelet Count 277 X10*3/uL (160-400); Red Blood Count 3.62 X10*6/uL (4.20-5.50); Red Cell Distribution Width 13.3 % (11.0-16.0); White Blood Count 7.7 X10*3/uL (4.8-10.8)
[2023-11-19 20:53] LABS: Alanine Aminotransferase 10 U/L (0-31); Albumin Level 3.7 g/dL (3.5-5.0); Alkaline Phosphatase 81 U/L (39-117); Anion Gap 14 (12-20); Aspartate Amino Transferase 13 U/L (5-31); Bilirubin Total 0.2 mg/dL (0.0-1.0); Blood Urea Nitrogen 24 mg/dL (9-16); Carbon Dioxide 26 mmol/L (22-29); Chloride 104 mmol/L (96-108); Creatinine Clr Calc Pharmacy 43.9; Estimated Glomerular Filt Rate 49; Glucose Random 210 mg/dL (60-115); Magnesium 1.8 mg/dL (1.6-2.6); Potassium 4.6 mmol/L (3.3-5.1); Sodium 139 mmol/L (135-145); Total Protein 6.4 g/dL (6.5-8.0)
[2023-11-19 21:00] LABS: Troponin-I High Sensitivity 7.1 ng/L (<3.5-17.0)
[2023-11-19 21:13] LABS: Influenza A PCR NEGATIVE (Negative); Influenza B PCR NEGATIVE (Negative); Resp Syncy Virus RNA Qual PCR NEGATIVE (Negative); SARS COV2 PCR INHOUSE NEGATIVE (Negative)
== END 2023-11-20 05:41 | disposition left against medical advice (07) ==
LOC: HO.ED 11-20 05:08
PROVIDERS: Physician Assistant Medical; Emergency Provider Emergency Medicine
DX: R51.9 Headache, unspecified (principal); R07.9 Chest pain, unspecified; Z03.818 Encounter for observation for suspected exposure to other biological agents ruled out; E11.9 Type 2 diabetes mellitus without complications; I10 Essential (primary) hypertension; E78.5 Hyperlipidemia, unspecified; J45.909 Unspecified asthma, uncomplicated; Z79.02 Long term (current) use of antithrombotics/antiplatelets; Z79.899 Other long term (current) drug therapy
CPT/HCPCS: 0241U; 71046; 80053; 83735; 84484; 85025; 93005; 99283

== ENCOUNTER 2023-11-23 09:19 | Outpatient (AMB) | payer MEDICAID, SELFPAY ==
[2023-11-23 09:42] VITALS: BP 132/68; BMI 27.9
--- NOTE | 2023-11-23 09:42 | MHC.OFFVIS ---
Vital Signs 11/23/23 09:42 11/23/23 09:56 Height 5 ft Weight 143 lb BMI 27.9 BP 132/68 138/72 Blood Pressure Location Lt brachial Rt brachial Position Sitting Sitting Intake Visit Reasons: 6m follow up s/p Arterial/Carotid US 10/19/23 Intake Note: 6 mo follow up carotid US 10/19/23 and LE Arterial US 10/19/23. Hx of R CEA 11/28/22. Pt states she has a small lump under incision but its getting smaller. Pt also has History of Left fem-pop bypass 05/18/20 and angiograms. She can only walk about half a block before bilateral LE get very weak. States bith LE are equal. Also complaints of hip pain Accompanied by: Daughter Allergies latex [LATEX] Allergy (Severe, Verified 11/23/23 09:54) RASH naproxen [From NAPROSYN] Adverse Reaction (Intermediate, Verified 11/23/23 09:54) TACHYCARDIA HPI HPI 6m follow up s/p Arterial/Carotid US 10/19/23: Details: Very pleasant 62-year-old female presents for routine follow-up regarding peripheral vascular disease and carotid disease. She has had no interval issues. She has undergone previous right carotid endarterectomy and reports no lateralizing signs or symptoms speech disturbances or visual defects. In terms of her peripheral vascular disease she is able to walk about a half a block before she has any significant difficulty. She is able to carry out her basic activity of daily living. Of note she was most recently in the hospital in October for a type 2 non-STEMI due to hypertensive crisis. She is scheduled for diagnostic coronary angiogram with cardiology in the near future. [facility] Medical History NSTEMI (non-ST elevated myocardial infarction) Mild aortic valve stenosis LORE (obstructive sleep apnea) Chronic low back pain Lumbar spinal stenosis HTN (hypertension) Vitamin D deficiency HLD (hyperlipidemia) T2DM (type 2 diabetes mellitus) H. pylori infection CAD (coronary artery disease) Cyst (solitary) of breast Kidney calculi Arthritis Asthma HTN (hypertension) Diabetes Surgical History History of right-sided carotid endarterectomy (~11/2022) S/P aortogram History of esophagogastroduodenoscopy (EGD) Hx of colonoscopy History of breast surgery History of cardiac cath Family History Mother Diabetes Liver cancer Social History Household Members: Children Household Members Other:: friend and adult son Housing: Apartment Are you a primary rn complex care to a significant other at home: No Do you presently have visiting nurse or other home services: Yes (RN 2x/week) Alcohol intake: never Comment: refuses bed alarm Patient Tobacco Use Status: Current everyday Tobacco user Tobacco use type: Cigarette Cigarette Packs Per Day: 1 Cigarettes Per Day: 4 Years Smoked: 30 e-Cigarette/Vaping Use: Currently Using Second Hand Smoke Exposure: Yes Advance Directives Date on File: 09/26/23 service: No Current occupational status: unemployed and disabled Review of Systems Const All systems reviewed & are unremarkable except as noted in HPI and below Reports no additional complaints ENT Reports Normal hearing present Card Denies chest pain, Denies chest pain at rest, Denies chest pain with activity and Denies pedal edema Resp Denies cough GI Denies abdominal pain Musc Denies abnormal gait, Denies muscle cramps and Denies radiating pain into limb Skin/Breast Denies skin ulcer and Denies wounds Neuro Reports Normal hearing present and Denies abnormal gait Psych Reports no additional complaints Physical Exam Vital Signs: Last Vital Signs BP 138/72 11/23/23 09:56 BMI result Body Mass Index 27.9 Const General: cooperative, healthy appearing and comfortable Orientation/consciousness: oriented to person, oriented to place and oriented to time HEENT Head: Yes normal to inspection Neck Neck: Yes normal visual inspection Carotids: no bruits Chest Chest palpation & inspection: normal inspection of the chest Resp Effort & Inspection: normal respiratory effort and able to speak in complete sentences Auscultation: clear to auscultation bilaterally, no crackles, no rales, no rhonchi and no wheezes Cardio Other: Bilateral DP signals Rate: regular rate Rhythm: regular rhythm Heart sounds: S1 normal heart sound present and S2 normal heart sound present Bruits: no carotid bruits GI Inspection: Yes normal to inspection Skin Wounds: no wounds Hair: normal Neuro General: oriented to person, oriented to place and oriented to time Cranial nerves: Yes CN's II-XII intact bilaterally and Yes Normal hearing present Cognition (Neuro): normal cognition Motor exam (neuro): 5/5 motor strength present throughout Extrem Other: venous exam: No significant superficial varicosities or spider telangiectasias, minimal edema General: No clubbing, No cyanosis and No edema Psych Appearance: grossly normal Mental Status: mental status grossly normal Speech and movement: Normal speech and movement present Results Reviewed Results Reviewed: Arterial testing dated 10/19/2023 demonstrates right leg with monophasic flow an occluded SFA left side patent fem-pop bypass. Assessment & Plan Assessment & Plan (1) Bilateral carotid artery stenosis: Comment: 11/28/2022 - right carotid endarterectomy Code(s): I65.23 - Occlusion and stenosis of bilateral carotid arteries Category: Medical Plan: In short patient has asymptomatic carotid disease. We have reviewed signs and symptoms of a stroke. We also discussed risk factor modification inclusive a healthy diet low in cholesterol. The patient will follow up with us with surveillance ultrasound of the carotids 1 year. Should there be any changes or signs or symptoms of a stroke we will be happy to see them back sooner. Thank you for allowing us to participate in this patient's care. If there are any questions or concerns please do not hesitate to contact us. (2) PAD (peripheral artery disease): Comment: 05/18/2020 - left fem-pop bypass 12/02/2020 - left angioplasty profundus femoris and popliteal inclusive is of distal anastomosis 05/17/2021 - right common iliac stent 04/13/2022 diagnostic angiogram Code(s): I73.9 - Peripheral vascular disease, unspecified Category: Medical Plan: In short patient has stable claudication. I did review the pathophysiology of peripheral vascular disease with the patient. In addition we did discuss routine conservative measures including a healthy diet and the importance of exercise and ambulation. We did discuss risk factor modification. We are hesitant to intervene as she most recently had an ND. On the left side she does have a palpable pulse. Right side does seem to be of concern but we will manage this conservatively. The patient will continue to to follow-up with surveillance follow-up in approximately 1 year. Thank you for allowing us to participate in this patient's care. If there are any questions or concerns please do not hesitate to contact us. Orders: Orders US arterial duplex LE BI 1 Year I73.9 - Peripheral vascular disease, unspecified US carotid duplex BI 1 Year I65.23 - Occlusion and stenosis of bilateral carotid arteries Coding Level of Care Code Est Pt Level 4 (71588) Complex EM visit Add On G2211 Diagnoses Bilateral carotid artery stenosis I65.23 PAD (peripheral artery disease) I73.9
[2023-11-23 09:56] VITALS: BP 138/72
== END 2023-11-23 10:14 | disposition home or self-care (01) ==
PROVIDERS: Referring Provider Family Medicine; Visit Provider Surgery Vascular Surgery
DX: I65.23 Occlusion and stenosis of bilateral carotid arteries (principal); I73.9 Peripheral vascular disease, unspecified
CPT/HCPCS: 99214

== ENCOUNTER → 2023-11-23 09:19 | Outpatient (BNVA) | payer MEDICAID, SELFPAY | PROVIDERS: Visit Provider Surgery Vascular Surgery | DX: I73.9 Peripheral vascular disease, unspecified (principal); I25.10 Atherosclerotic heart disease of native coronary artery without angina pectoris; I65.23 Occlusion and stenosis of bilateral carotid arteries; M25.559 Pain in unspecified hip | CPT/HCPCS: 99212 ==

== ENCOUNTER → 2023-11-30 23:59 | Outpatient (BNV) | payer MEDICAID, SELFPAY | PROVIDERS: PCP Family Medicine; Visit Provider Internal Medicine Cardiovascular Disease | DX: I21.4 Non-ST elevation (NSTEMI) myocardial infarction (principal) | CPT/HCPCS: 93458; 99152 ==

== ENCOUNTER 2023-12-05 21:30 | Emergency (ER) | payer MEDICAID, SELFPAY ==
--- NOTE | 2023-12-05 | ECG_ITS ---
Test Reason : PALPITATIONS Blood Pressure : / mmHG Vent. Rate : 091 BPM Atrial Rate : 091 BPM P-R Int : 126 ms QRS Dur : 082 ms QT Int : 356 ms P-R-T Axes : 033 -09 098 degrees QTc Int : 437 ms Normal sinus rhythm Left ventricular hypertrophy with repolarization abnormality ( R in aVL , [place] product ) Abnormal ECG When compared with ECG of 19-NOV-2023 20:18, No significant change was found Referred By: Generic ED Physician Electronically Signed By:Ghanshyam Daniel
[2023-12-05 21:41] VITALS: BP 208/88; PULSE 106; O2SAT 100
[2023-12-05 21:44] VITALS: BP 195/75; PULSE 92; RESP 22; TEMP 37; O2SAT 98; BMI 26.7
--- NOTE | 2023-12-05 21:47 | ED.GENADULT ---
HPI - General Adult General Chief complaint: Chest Pain Stated complaint: HTN *223/91, headache, palpitations Time Seen by Provider: 12/05/23 21:46 History of Present Illness ED Provider: eric METZ narrative: Patient has significant history of hypertension, dm, peripheral vascular disease coronary artery disease status post cardiac catheterization done on 11/30/2023 which showed multivessel disease no stent was placed on aspirin and Plavix take hydralazine carvedilol and nifedipine for blood pressure control which patient is fairly compliant also does have history of migraine headache comes here as VII p.m. noticed diffuse headache mostly in the frontal area with light sensitivity and nausea checked her blood pressure was elevated to 195/75 no vomiting no chest pain Related Data Home Medications ?Medication ?Instructions ?Recorded ?Confirmed metformin 1,000 mg tablet 1,000 mg PO BID 12/22/19 11/15/23 aspirin 81 mg tablet,delayed 81 mg PO DAILY 01/02/20 11/15/23 release (Adult Low Dose Aspirin) atorvastatin 80 mg tablet (Lipitor) 80 mg PO BEDTIME 01/02/20 11/15/23 escitalopram oxalate 20 mg tablet 20 mg PO DAILY@1800 01/02/20 11/15/23 (Lexapro) mirtazapine 45 mg tablet 45 mg PO BEDTIME 01/02/20 11/15/23 multivitamin 1 tab PO DAILY 01/02/20 11/15/23 blood sugar diagnostic (FreeStyle #10 ea 03/30/21 11/15/23 Lite Strips) insulin degludec 100 unit/mL (3 10 unit subcut DAILY 10/03/22 11/15/23 mL) subcutaneous pen (Tresiba FlexTouch U-100 insulin) nifedipine 90 mg tablet,extended 90 mg PO BEDTIME 10/25/23 11/15/23 release 24 hr hydralazine 50 mg tablet 75 mg PO TID 11/15/23 11/15/23 omeprazole 40 mg capsule,delayed 20 mg PO DAILY@0630 PRN Heartburn 11/15/23 11/15/23 release Previous Rx's ?Medication ?Instructions ?Recorded clopidogrel 75 mg tablet (Plavix) 75 mg PO DAILY #30 tabs 12/02/20 pioglitazone 15 mg tablet 15 mg PO DAILY 30 days #30 tabs 12/02/20 carvedilol 25 mg tablet (Coreg) 25 mg PO BID #60 tabs 09/11/23 lisinopril 40 mg tablet 40 mg PO DAILY #30 tabs 09/11/23 lorazepam 1 mg tablet (Ativan) 1 mg PO BEDTIME PRN anxiety/sleep 11/06/23 #10 tabs Allergies Allergy/AdvReac Type Severity Reaction Status Date / Time latex [LATEX] Allergy Severe RASH Verified 12/05/23 21:47 naproxen [From NAPROSYN] AdvReac Intermediate TACHYCARDIA Verified 12/05/23 21:47 Review of Systems Review of Systems: Yes all other systems are reviewed and are negative [facility] Past Medical History Medical History NSTEMI (non-ST elevated myocardial infarction) Mild aortic valve stenosis LORE (obstructive sleep apnea) Chronic low back pain Lumbar spinal stenosis HTN (hypertension) Vitamin D deficiency HLD (hyperlipidemia) T2DM (type 2 diabetes mellitus) H. pylori infection CAD (coronary artery disease) Cyst (solitary) of breast Kidney calculi Arthritis Asthma HTN (hypertension) Diabetes Surgical History History of right-sided carotid endarterectomy (~11/2022) S/P aortogram History of esophagogastroduodenoscopy (EGD) Hx of colonoscopy History of breast surgery History of cardiac cath Family History Family History Mother Diabetes Liver cancer Social History Social History Household Members: Children Household Members Other:: friend and adult son Housing: Apartment Are you a primary care asst to a significant other at home: No Do you presently have visiting nurse or other home services: Yes (RN 2x/week) Alcohol intake: never Comment: refuses bed alarm Patient Tobacco Use Status: Current everyday Tobacco user Tobacco use type: Cigarette Cigarette Packs Per Day: 1 Cigarettes Per Day: 4 Years Smoked: 30 Smoked in Last 30 Days: Yes e-Cigarette/Vaping Use: Currently Using Second Hand Smoke Exposure: Yes Use of substances other than those prescribed or required for medical reasons: No Advance Directives: No Advance Directives Information Provided: Yes Advance Directives Date on File: 09/26/23 Do you have a plan to hurt others: No Plan Patient : No service: No Current occupational status: unemployed and disabled Physical Exam ED Vital Signs: Vital Signs - 24 hr 12/05/23 21:44 12/05/23 22:49 12/06/23 00:21 Temperature 98.6 F Pulse Rate 92 92 85 Respiratory Rate 22 H 15 14 Blood Pressure 195/75 H 172/80 H 155/69 H Pulse Oximetry 98 97 Oxygen Delivery Method Room Air Room Air 12/06/23 00:34 12/06/23 01:34 12/06/23 01:37 Temperature Pulse Rate 89 Respiratory Rate 16 Blood Pressure 166/57 H 152/57 H Pulse Oximetry 96 96 Oxygen Delivery Method Nasal Cannula Room Air BMI result Body Mass Index 26.7 Appearance: Alert. Oriented X3. No acute distress. Eyes: PERRLA, No Nystagmus ENT: Pharynx normal. Oral Mucosa moist Neck: Normal inspection. Neck supple. CVS: Normal heart rate and rhythm. Pulses normal. Respiratory: No respiratory distress. Equal air entry bilateral, no wheezing/rales/rhonchi Abdomen: Soft and nontender. Bowel sounds are present, no mass palpable, no CVA tenderness Skin: Skin warm and dry. Normal skin color. Normal skin turgor. Extremities: No lower extremity edema. No calf tenderness Neuro: Oriented X 3. No motor deficit. No sensory deficit.No cerebellar signs , cranial nerves II-XII intact Medications Administered Discontinued Medications Generic Name Dose Route Start Last Admin Trade Name Freq PRN Reason Stop Dose Admin Diphenhydramine HCl 50 mg 12/06/23 00:24 12/06/23 00:34 Diphenhydramine Hcl 50 Mg/Ml Vial IVPUSH 12/06/23 00:25 50 mg ONCE ONE Administration Hydralazine HCl 10 mg 12/05/23 22:03 12/05/23 22:08 Hydralazine Hcl 20 Mg/Ml Vial IVPUSH 12/05/23 22:04 10 mg ONCE ONE Administration Protocol Hydralazine HCl 50 mg 12/06/23 00:25 12/06/23 00:34 Hydralazine Hcl 50 Mg Tablet PO 12/06/23 00:26 50 mg ONCE ONE Administration Protocol Metoclopramide HCl 10 mg 12/06/23 00:24 12/06/23 00:34 Metoclopramide Hcl 10 Mg/2 Ml Vial IVPUSH 12/06/23 00:25 10 mg ONCE ONE Administration Morphine Sulfate 4 mg 12/05/23 22:54 12/05/23 23:00 Morphine Sulfate 4 Mg/Ml Cartridge IVPUSH 12/05/23 22:55 4 mg ONCE ONE Administration Protocol Ondansetron HCl 4 mg 12/05/23 22:54 12/05/23 23:00 Ondansetron Hcl 4 Mg/2 Ml Vial IVPUSH 12/05/23 22:55 4 mg ONCE ONE Administration Medical Decision Making Medical Decision Making MDM Narrative: Patient with elevated blood pressure with migraine headache which responded to Benadryl and Reglan blood pressure improved after hydralazine to 152/57 patient is supposed to take hydralazine 75 mg 3 times with a but she taking only 50 mg 3 times a day advised to increase the dose to 75 follow with PCP Differential Diagnosis Differential Diagnoses: The differential diagnosis associated with the presentation includes Admission/Observation Consideration of admission/observation: Escalation of care including admission/observation considered Lab Data [facility] Lab Attestation statement: I reviewed the patient's lab results. 12/05/23 22:14 12/05/23 22:14 Labs: Lab Results 12/05/23 12/05/23 Range/Units 21:51 22:14 WBC 8.3 (4.8-10.8) X10*3/uL RBC 3.62 L (4.20-5.50) X10*6/uL Hgb 10.8 L (12.0-16.0) g/dl Hct 32.1 L (37.0-47.0) % MCV 88.7 (80.0-98.0) fL MCH 29.8 (27.0-33.0) pg MCHC 33.6 (31.0-35.0) g/dl RDW 13.3 (11.0-16.0) % Plt Count 298 (160-400) X10*3/uL MPV 9.2 L (9.4-12.3) fL Immature Gran % (Auto) 0.4 (0.0-0.4) % Neut % (Auto) 71.1 (45-73) % Lymph % (Auto) 19.6 L (20-40) % [place] % (Auto) 5.7 (2-11) % Eos % (Auto) 2.7 (0-4) % Baso % (Auto) 0.5 (0-2) % Lymph # (Auto) 1.6 (1.2-4.9) X10*3/uL [place] # (Auto) 0.5 (0.1-1.2) X10*3/uL Eos # (Auto) 0.2 (0.0-0.4) X10*3/uL Baso # (Auto) 0.0 (0.0-0.2) X10*3/uL Abs Immat Gran (auto) 0.03 (0.00-0.03) X10*3/uL Absolute Neuts (auto) 5.9 (2.0-8.3) x10*3/uL Absolute Nucleated RBC 0.000 (0.0-0.012) X10*3/uL Nucleated RBC % (auto) 0.0 (0.0-0.2) /100WBC PT 10.0 L (10.9-12.4) SEC INR 0.9 (0.9-1.1) Sodium 140 (135-145) mmol/L Potassium 4.4 (3.3-5.1) mmol/L Chloride 106 (96-108) mmol/L Carbon Dioxide 27 (22-29) mmol/L Anion Gap 11 L (12-20) BUN 19 H (9-16) mg/dL Creatinine 1.01 (0.5-1.4) mg/dL Estim Creat Clear Calc 52.1 Estimated GFR 56 POC Glucose 191 H (60-115) mg/dL Random Glucose 193 H (60-115) mg/dL Calcium 9.3 (8.4-10.2) mg/dL Total Bilirubin 0.2 (0.0-1.0) mg/dL AST 18 (5-31) U/L ALT 9 (0-31) U/L Alkaline Phosphatase 78 (39-117) U/L Troponin I High Sens 6.5 (<3.5-17.0) ng/L Total Protein 6.3 L (6.5-8.0) g/dL Albumin 3.7 (3.5-5.0) g/dL Independent Interpretation I performed an independent interpretation of an: EKG Interpretation: Normal sinus rhythm heart rate 91 beats per minute normal axis LVH no acute STT wave changes no acute ischemia Discharge Plan Discharge Clinical Impression: Hypertension, Migraine Patient Disposition: Home, Self-Care Instructions: Migraine Headache (ED), Chronic Hypertension (ED) Additional Instructions: Take blood pressure medicine as prescribed see supposed to take hydralazine 25 mg tablets 3 tablets 3 times a day along with other medication Follow with your PCP Tylenol for pain Prescriptions: No Action pioglitazone 15 mg tablet 15 mg PO DAILY 30 Days Qty: 30 11RF metformin 1,000 mg Tablet 1,000 mg PO BID clopidogrel [Plavix] 75 mg tablet 75 mg PO DAILY Qty: 30 5RF lorazepam [Ativan] 1 mg tablet 1 mg PO BEDTIME PRN (Reason: anxiety/sleep) Qty: 10 0RF carvedilol [Coreg] 25 mg tablet 25 mg PO BID Qty: 60 0RF Rx Instructions: must administer with a meal/food lisinopril 40 mg tablet 40 mg PO DAILY Qty: 30 0RF nifedipine 90 mg Tablet Extended Release 24hr 90 mg PO BEDTIME omeprazole 40 mg capsule,delayed release(DR/EC) 20 mg PO DAILY@0630 PRN (Reason: Heartburn) multivitamin Tablet 1 tab PO DAILY aspirin [Adult Low Dose Aspirin] 81 mg tablet,delayed release (DR/EC) 81 mg PO DAILY escitalopram oxalate [Lexapro] 20 mg tablet 20 mg PO DAILY@1800 mirtazapine 45 mg tablet 45 mg PO BEDTIME atorvastatin [Lipitor] 80 mg tablet 80 mg PO BEDTIME Tresiba FlexTouch U-100 100 unit/mL (3 mL) insulin pen 10 unit subcut DAILY (DME) FreeStyle Lite Strips Strip See Rx Instructions Not Applicable QID Qty: 10 Rx Instructions: As directed hydralazine 50 mg tablet 75 mg PO TID Protocol: Hold for SBP< HOLD for SBP < : 90 Print Language: Jordanian
[2023-12-05 21:50] VITALS: PULSE 92
[2023-12-05 21:56] LABS: Glucose, Whole Blood 191 mg/dL (60-115)
[2023-12-05] MEDS: hydrALAZINE HCl 20 MG/ML VIAL 10 MG IVPUSH (22:08)
[2023-12-05 22:18] LABS: MANUAL DIFF FLAG NO
[2023-12-05 22:23] LABS: Basophils Percent Auto 0.5 % (0-2); Eosinophils Absolute Auto 0.2 X10*3/uL (0.0-0.4); Eosinophils Percent Auto 2.7 % (0-4); Hematocrit 32.1 % (37.0-47.0); Hemoglobin 10.8 g/dl (12.0-16.0); Imm Gran Abs Auto 0.03 X10*3/uL (0.00-0.03); Imm Gran Pct Auto 0.4 % (0.0-0.4); Lymphocytes Absolute Auto 1.6 X10*3/uL (1.2-4.9); Lymphocytes Percent Auto 19.6 % (20-40); Mean Corpuscular HGB Conc 33.6 g/dl (31.0-35.0); Mean Corpuscular Hemoglobin 29.8 pg (27.0-33.0); Mean Corpuscular Volume 88.7 fL (80.0-98.0); Mean Platelet Volume 9.2 fL (9.4-12.3); Monocytes Absolute Auto 0.5 X10*3/uL (0.1-1.2); Monocytes Percent Auto 5.7 % (2-11); Neutrophils Absolute Auto 5.9 x10*3/uL (2.0-8.3); Neutrophils Percent Auto 71.1 % (45-73); Platelet Count 298 X10*3/uL (160-400); Red Blood Count 3.62 X10*6/uL (4.20-5.50); Red Cell Distribution Width 13.3 % (11.0-16.0); White Blood Count 8.3 X10*3/uL (4.8-10.8)
[2023-12-05 22:29] LABS: INTERNATIONAL NORM RATIO 0.9 (0.9-1.1)
[2023-12-05 22:36] LABS: Alanine Aminotransferase 9 U/L (0-31); Albumin Level 3.7 g/dL (3.5-5.0); Alkaline Phosphatase 78 U/L (39-117); Anion Gap 11 (12-20); Aspartate Amino Transferase 18 U/L (5-31); Bilirubin Total 0.2 mg/dL (0.0-1.0); Blood Urea Nitrogen 19 mg/dL (9-16); Calcium 9.3 mg/dL (8.4-10.2); Carbon Dioxide 27 mmol/L (22-29); Chloride 106 mmol/L (96-108); Creatinine Clr Calc Pharmacy 52.1; Estimated Glomerular Filt Rate 56; Glucose Random 193 mg/dL (60-115); Potassium 4.4 mmol/L (3.3-5.1); Sodium 140 mmol/L (135-145); Total Protein 6.3 g/dL (6.5-8.0)
[2023-12-05 22:43] LABS: Troponin-I High Sensitivity 6.5 ng/L (<3.5-17.0)
[2023-12-05 22:49] VITALS: BP 172/80; PULSE 92; RESP 15
[2023-12-05] MEDS: ondansetron HCL 4 MG/2 ML VIAL IVPUSH (23:00)
[2023-12-05] MEDS: Morphine Sulfate 4 MG/ML CARTRIDGE IVPUSH (23:00)
[2023-12-06 00:21] VITALS: BP 155/69; PULSE 85; RESP 14; O2SAT 97
[2023-12-06 00:34] VITALS: BP 166/57
[2023-12-06] MEDS: diphenhydrAMINE HCL 50 MG/ML VIAL IVPUSH (00:34)
[2023-12-06] MEDS: hydrALAZINE HCl 50 MG TABLET PO (00:34)
[2023-12-06] MEDS: Metoclopramide HCl 10 MG/2 ML VIAL IVPUSH (00:34)
[2023-12-06 01:34] VITALS: BP 152/57; PULSE 89; RESP 16; O2SAT 96
[2023-12-06 01:37] VITALS: O2SAT 96
[2023-12-06 02:08] VITALS: BP 152/57; PULSE 89; RESP 16; TEMP 36.6; O2SAT 96
== END 2023-12-06 02:09 | disposition home or self-care (01) ==
PROVIDERS: Emergency Provider Internal Medicine; PCP Family Medicine
DX: G43.909 Migraine, unspecified, not intractable, without status migrainosus (principal); R07.89 Other chest pain; I10 Essential (primary) hypertension; E11.9 Type 2 diabetes mellitus without complications; F17.210 Nicotine dependence, cigarettes, uncomplicated; Z79.4 Long term (current) use of insulin; Z79.899 Other long term (current) drug therapy
CPT/HCPCS: 36415; 80053; 82947; 84484; 85025; 85610; 93005; 96374; 96375; 99284; 99285; J0360; J1200; J2270; J2405; J2765

== ENCOUNTER → 2023-12-05 21:40 | Outpatient (BNV) | payer MEDICAID, SELFPAY | PROVIDERS: Emergency Provider Internal Medicine; PCP Family Medicine; Visit Provider Internal Medicine Cardiovascular Disease | DX: R00.2 Palpitations (principal); R94.31 Abnormal electrocardiogram [ECG] [EKG] | CPT/HCPCS: 93010 ==

== ENCOUNTER 2024-01-08 19:08 | Emergency (ER) | payer MEDICAID, SELFPAY ==
--- NOTE | 2024-01-08 | ECG_ITS ---
Test Reason : CHEST PAIN Blood Pressure : / mmHG Vent. Rate : 080 BPM Atrial Rate : 080 BPM P-R Int : 124 ms QRS Dur : 094 ms QT Int : 392 ms P-R-T Axes : 036 -01 163 degrees QTc Int : 452 ms Normal sinus rhythm Incomplete right bundle branch block Moderate voltage criteria for LVH, may be normal variant ( R in aVL , [place] product ) Nonspecific ST and T wave abnormality Abnormal ECG When compared with ECG of 05-DEC-2023 21:40, No significant change was found Referred By: Generic ED Physician Electronically Signed By:JM DU
--- NOTE | ~2024-01-08 | XR_ITS ---
EXAMINATION: XR CHEST CLINICAL INFORMATION: chest pain COMPARISON: Chest radiograph 11/19/2023 CT angiogram chest 01/16/2021 TECHNIQUE: 2 views of the chest were obtained. FINDINGS: No significant abnormality is noted involving the heart, lungs, mediastinum, bony thorax or soft tissues. Again noted is a benign left lower lobe calcified granuloma. A tiny hiatal hernia is again seen. XR/XR chest 2V IMPRESSION: Unremarkable examination. Electronically signed by: Delbert Mcmanus MD 01/08/2024 09:27 PM [facility]
--- NOTE | ~2024-01-08 | CT_ITS ---
EXAMINATION: CT HEAD WITHOUT CONTRAST CLINICAL INFORMATION: Headache. COMPARISON: CT head from 10/25/2023. TECHNIQUE: Contiguous axial imaging was performed from the skull base to vertex without intravenous administration of contrast. This CT examination was performed using dose optimization techniques as appropriate, variously including the following: *Automated exposure control. *Adjustment of mA and/or kV according to patient size (this includes techniques or standardized protocols for targeted exams where dose is matched to indication/reason for exam; i.e. extremities or head). *Use of iterative reconstruction technique. DLP: 566 mGy-cm FINDINGS: There is no evidence of acute intracranial hemorrhage or edematous territorial infarction. Kelly-white matter differentiation is preserved. A few foci of hypoattenuation in the periventricular and deep white matter are consistent with mild microangiopathy. The ventricles are normal in morphology and size. No evidence for obstructive hydrocephalus. The suprasellar cistern remains widely patent. Normal positioning of the cerebellar tonsils. No abnormal mass effect or midline shift. No extra-axial fluid collections. Calcific atherosclerotic disease of the intracranial internal carotid and vertebral arteries. No hyperdense vessel sign. No acute soft tissue or osseous abnormalities. Mild mucosal thickening of the paranasal sinuses. The mastoid air cells and middle ear cavities are clear. CT/CT head/brain wo IV con IMPRESSION: 1. No evidence of acute intracranial hemorrhage or edematous territorial infarction. 2. Mild underlying microangiopathy. Electronically signed by: Tip Hunter DO 01/08/2024 09:44 PM EST
[2024-01-08 19:22] VITALS: BP 176/66; BP 200/100; PULSE 100; PULSE 86; RESP 12; TEMP 36.8; O2SAT 97; O2SAT 98
--- NOTE | 2024-01-08 19:23 | MHC.EDTECH ---
pt placed on electronic device monitor at this time
[2024-01-08 19:25] VITALS: BMI 24.2
[2024-01-08 19:53] LABS: MANUAL DIFF FLAG NO
[2024-01-08 19:56] LABS: Basophils Percent Auto 0.5 % (0-2); Eosinophils Absolute Auto 0.2 X10*3/uL (0.0-0.4); Eosinophils Percent Auto 3.4 % (0-4); Hematocrit 30.7 % (37.0-47.0); Hemoglobin 10.5 g/dl (12.0-16.0); Imm Gran Abs Auto 0.02 X10*3/uL (0.00-0.03); Imm Gran Pct Auto 0.3 % (0.0-0.4); Lymphocytes Absolute Auto 1.8 X10*3/uL (1.2-4.9); Lymphocytes Percent Auto 28.3 % (20-40); Mean Corpuscular HGB Conc 34.2 g/dl (31.0-35.0); Mean Corpuscular Volume 87.7 fL (80.0-98.0); Mean Platelet Volume 9.3 fL (9.4-12.3); Monocytes Absolute Auto 0.4 X10*3/uL (0.1-1.2); Neutrophils Percent Auto 61.5 % (45-73); Platelet Count 304 X10*3/uL (160-400); Red Cell Distribution Width 13.2 % (11.0-16.0); White Blood Count 6.5 X10*3/uL (4.8-10.8)
--- NOTE | 2024-01-08 20:06 | ECG_ITS ---
Test Reason : CHST PAIN Blood Pressure : / mmHG Vent. Rate : 091 BPM Atrial Rate : 091 BPM P-R Int : 142 ms QRS Dur : 092 ms QT Int : 360 ms P-R-T Axes : 043 -01 203 degrees QTc Int : 442 ms Normal sinus rhythm Left ventricular hypertrophy with repolarization abnormality ( R in aVL ) Abnormal ECG When compared with ECG of 08-JAN-2024 19:36, Non-specific change in ST segment in Anterior leads T wave inversion now evident in Inferior leads Referred By: Sha Oliveira Electronically Signed By:JM DU
[2024-01-08 20:09] LABS: Alanine Aminotransferase 6 U/L (0-31); Albumin Level 3.2 g/dL (3.5-5.0); Anion Gap 13 (12-20); Aspartate Amino Transferase 14 U/L (5-31); Bilirubin Total 0.2 mg/dL (0.0-1.0); Blood Urea Nitrogen 22 mg/dL (9-16); Calcium 8.8 mg/dL (8.4-10.2); Carbon Dioxide 27 mmol/L (22-29); Chloride 101 mmol/L (96-108); Estimated Glomerular Filt Rate 53; Glucose Random 361 mg/dL (60-115); Potassium 4.1 mmol/L (3.3-5.1); Sodium 137 mmol/L (135-145); Total Protein 5.8 g/dL (6.5-8.0)
[2024-01-08 20:13] LABS: Troponin-I High Sensitivity 6.4 ng/L (<3.5-17.0)
[2024-01-08 20:22] LABS: Alkaline Phosphatase 80 U/L (39-117)
[2024-01-08 20:26] LABS: Hematocrit 30.9 % (37.0-47.0); Hemoglobin 10.5 g/dl (12.0-16.0); Mean Corpuscular Hemoglobin 29.8 pg (27.0-33.0); Mean Corpuscular Volume 87.8 fL (80.0-98.0); Mean Platelet Volume 9.4 fL (9.4-12.3); Platelet Count 296 X10*3/uL (160-400); Red Blood Count 3.52 X10*6/uL (4.20-5.50); Red Cell Distribution Width 13.2 % (11.0-16.0); White Blood Count 7.4 X10*3/uL (4.8-10.8)
--- NOTE | 2024-01-08 20:33 | ED.CHESTPAIN ---
HPI - Chest Pain General Chief Complaint: Chest Pain Stated Complaint: chest pain, HTN *227/96 Time Seen by Provider: 01/08/24 19:49 History of Present Illness ED Provider: Tee METZ narrative: 63-year-old female with past medical history of NSTEMI presenting for chest pain. Patient states that her pain began earlier this evening around 17:00 while she was walking. She describes it as sharp left-sided chest pain that is worse with exertion. Patient also endorses mild shortness of breath. She denies diaphoresis. She states that this pain feels similar to when she was diagnosed with her NSTEMI. She was given 324 of aspirin by EMS with improvement in her chest pain. She was hypertensive in transport. Related Data Home Medications ?Medication ?Instructions ?Recorded ?Confirmed metformin 1,000 mg tablet 1,000 mg PO BID 12/22/19 11/15/23 aspirin 81 mg tablet,delayed 81 mg PO DAILY 01/02/20 11/15/23 release (Adult Low Dose Aspirin) atorvastatin 80 mg tablet (Lipitor) 80 mg PO BEDTIME 01/02/20 11/15/23 escitalopram oxalate 20 mg tablet 20 mg PO DAILY@1800 01/02/20 11/15/23 (Lexapro) mirtazapine 45 mg tablet 45 mg PO BEDTIME 01/02/20 11/15/23 multivitamin 1 tab PO DAILY 01/02/20 11/15/23 blood sugar diagnostic (FreeStyle #10 ea 03/30/21 11/15/23 Lite Strips) insulin degludec 100 unit/mL (3 10 unit subcut DAILY 10/03/22 11/15/23 mL) subcutaneous pen (Tresiba FlexTouch U-100 insulin) nifedipine 90 mg tablet,extended 90 mg PO BEDTIME 10/25/23 11/15/23 release 24 hr hydralazine 50 mg tablet 75 mg PO TID 11/15/23 11/15/23 omeprazole 40 mg capsule,delayed 20 mg PO DAILY@0630 PRN Heartburn 11/15/23 11/15/23 release empagliflozin 10 mg tablet 10 mg PO DAILY 01/01/24 (Jardiance) hydrochlorothiazide 25 mg tablet 25 mg PO DAILY 01/01/24 isosorbide mononitrate 30 mg 30 mg PO QAM 01/01/24 tablet,extended release 24 hr Previous Rx's ?Medication ?Instructions ?Recorded clopidogrel 75 mg tablet (Plavix) 75 mg PO DAILY #30 tabs 12/02/20 pioglitazone 15 mg tablet 15 mg PO DAILY 30 days #30 tabs 12/02/20 carvedilol 25 mg tablet (Coreg) 25 mg PO BID #60 tabs 09/11/23 lisinopril 40 mg tablet 40 mg PO DAILY #30 tabs 09/11/23 lorazepam 1 mg tablet (Ativan) 1 mg PO BEDTIME PRN anxiety/sleep 11/06/23 #10 tabs Allergies Allergy/AdvReac Type Severity Reaction Status Date / Time latex [LATEX] Allergy Severe RASH Verified 01/08/24 19:26 naproxen [From NAPROSYN] AdvReac Intermediate TACHYCARDIA Verified 01/08/24 19:26 Review of Systems Review of Systems: patient endorses chest pain and shortness of breath Yes all other systems are reviewed and are negative [facility] Past Medical History Attestation statement: The following information was validated with the patient. [facility], [facility] Narrative: CAD, NSTEMI, hypertension Source: old records reviewed Medical History NSTEMI (non-ST elevated myocardial infarction) Mild aortic valve stenosis LORE (obstructive sleep apnea) Chronic low back pain Lumbar spinal stenosis HTN (hypertension) Vitamin D deficiency HLD (hyperlipidemia) T2DM (type 2 diabetes mellitus) H. pylori infection CAD (coronary artery disease) Cyst (solitary) of breast Kidney calculi Arthritis Asthma HTN (hypertension) Diabetes Surgical History History of right-sided carotid endarterectomy (~11/2022) S/P aortogram History of esophagogastroduodenoscopy (EGD) Hx of colonoscopy History of breast surgery History of cardiac cath Family History Family History Mother Diabetes Liver cancer Social History Social History Household Members: Children Household Members Other:: friend and adult son Housing: Apartment Are you a primary landcare facilitator to a significant other at home: No Do you presently have visiting nurse or other home services: Yes (RN 2x/week) Alcohol intake: never Comment: refuses bed alarm Patient Tobacco Use Status: Current everyday Tobacco user Tobacco use type: Cigarette Cigarette Packs Per Day: 1 Cigarettes Per Day: 4 Years Smoked: 30 e-Cigarette/Vaping Use: Currently Using Second Hand Smoke Exposure: Yes Advance Directives: Yes Advance Directives on File: Yes Advance Directives Date on File: 09/26/23 Do you have a plan to hurt others: No Plan service: No Current occupational status: unemployed and disabled Physical Exam Vital Signs: Vital Signs: Last Vital Signs Temp 98.3 F 01/08/24 19:22 Pulse 86 01/08/24 19:22 Resp 12 01/08/24 19:22 BP 176/66 H 01/08/24 19:22 Pulse Ox 97 01/08/24 19:22 O2 Del Method Room Air 01/08/24 19:22 BMI result Body Mass Index 24.2 well-appearing female in no acute distress. Lungs clear to auscultation bilaterally. Normal S1-S2 regular rate rhythm. No chest wall tenderness to palpation. Abdomen is soft nontender nondistended. No lower extremity edema appreciated Medications Administered Generic Name Dose Route Start Last Admin Trade Name Freq PRN Reason Stop Dose Admin Heparin Sodium/Sodium Chloride 25,000 unit in 250 mls @ 0 mls/hr 01/08/24 20:15 01/08/24 20:50 Heparin Sodium,Porcine/1/2ns IVCONT 12 units/kg/hr .Q0M JORY 7.93 mls/hr Administration Protocol Per Protocol Discontinued Medications Generic Name Dose Route Start Last Admin Trade Name Freq PRN Reason Stop Dose Admin Heparin Sodium (Porcine) 4,000 unit 01/08/24 20:06 01/08/24 20:48 Heparin Sodium,Porcine 5,000 Unit/Ml Vial 60 unit/kg (4000 unit) 01/08/24 20:07 4,000 unit IVPUSH Administration ONCE ONE Nitroglycerin 0.4 mg 01/08/24 20:36 01/08/24 21:03 Nitroglycerin 0.4 Mg Tab.Subl SUBLINGUAL 01/08/24 20:37 0.4 mg ONCE ONE Administration Medical Decision Making Medical Decision Making MDM Narrative: This is a 63-year-old female with a past medical history of NSTEMI presenting for chest pain. I am concerned for ACS/ angina. Patient's EKGs is showing ST elevations in anterior leads. With patient's history of acute onset chest pain shortness of breath I am concerned for STEMI. Patient was given 324 aspirin by EMS. I ordered heparin and reached out to on-call development advisor who recommended transfer [facility]. I spoke to Dr. Herr who accepted the patient for transfer. Repeat EKG now showing ST depressions in leads 2, AVF and lateral leads. Patient given sublingual nitro due to persistent chest pain and hypertension. Patient is complaining of head pain. I ordered a CT head prior to starting heparin. I reviewed her CT and did not appreciate a head bleed. Heparin drip started and patient transferred to [facility]. Lab Data 01/08/24 20:18 01/08/24 19:44 Labs: Lab Results 01/08/24 01/08/24 01/08/24 Range/Units 19:44 20:18 20:18 WBC 6.5 7.4 (4.8-10.8) X10*3/uL RBC 3.50 L 3.52 L (4.20-5.50) X10*6/uL Hgb 10.5 L 10.5 L (12.0-16.0) g/dl Hct 30.7 L 30.9 L (37.0-47.0) % MCV 87.7 87.8 (80.0-98.0) fL MCH 30.0 29.8 (27.0-33.0) pg MCHC 34.2 34.0 (31.0-35.0) g/dl RDW 13.2 13.2 (11.0-16.0) % Plt Count 304 296 (160-400) X10*3/uL MPV 9.3 L 9.4 (9.4-12.3) fL Immature Gran % (Auto) 0.3 (0.0-0.4) % Neut % (Auto) 61.5 (45-73) % Lymph % (Auto) 28.3 (20-40) % [place] % (Auto) 6.0 (2-11) % Eos % (Auto) 3.4 (0-4) % Baso % (Auto) 0.5 (0-2) % Lymph # (Auto) 1.8 (1.2-4.9) X10*3/uL [place] # (Auto) 0.4 (0.1-1.2) X10*3/uL Eos # (Auto) 0.2 (0.0-0.4) X10*3/uL Baso # (Auto) 0.0 (0.0-0.2) X10*3/uL Abs Immat Gran (auto) 0.02 (0.00-0.03) X10*3/uL Absolute Neuts (auto) 4.0 (2.0-8.3) x10*3/uL Absolute Nucleated RBC 0.000 0.000 (0.0-0.012) X10*3/uL Nucleated RBC % (auto) 0.0 0.0 (0.0-0.2) /100WBC PT 10.3 L 10.4 L (10.9-12.4) SEC INR 0.9 (0.9-1.1) APTT (26.0-36.8) SEC aPTT Heparin Protocol (53-77.9) SEC VBG pH (7.32-7.43) VBG pCO2 mmHg VBG pO2 mmHg VBG HCO3 (22-26) mmol/L VBG O2 Saturation % VBG Base Excess mmol/L Sodium 137 (135-145) mmol/L Potassium 4.1 (3.3-5.1) mmol/L Chloride 101 (96-108) mmol/L Carbon Dioxide 27 (22-29) mmol/L Anion Gap 13 (12-20) BUN 22 H (9-16) mg/dL Creatinine 1.05 (0.5-1.4) mg/dL Estim Creat Clear Calc 50.0 Estimated GFR 53 Random Glucose 361 H* (60-115) mg/dL Calcium 8.8 (8.4-10.2) mg/dL Total Bilirubin 0.2 (0.0-1.0) mg/dL AST 14 (5-31) U/L ALT 6 (0-31) U/L Alkaline Phosphatase 80 (39-117) U/L Troponin I High Sens 6.4 (<3.5-17.0) ng/L Total Protein 5.8 L (6.5-8.0) g/dL Albumin 3.2 L (3.5-5.0) g/dL 01/08/24 01/08/24 Range/Units 20:18 20:25 WBC (4.8-10.8) X10*3/uL RBC (4.20-5.50) X10*6/uL Hgb (12.0-16.0) g/dl Hct (37.0-47.0) % MCV (80.0-98.0) fL MCH (27.0-33.0) pg MCHC (31.0-35.0) g/dl RDW (11.0-16.0) % Plt Count (160-400) X10*3/uL MPV (9.4-12.3) fL Immature Gran % (Auto) (0.0-0.4) % Neut % (Auto) (45-73) % Lymph % (Auto) (20-40) % [place] % (Auto) (2-11) % Eos % (Auto) (0-4) % Baso % (Auto) (0-2) % Lymph # (Auto) (1.2-4.9) X10*3/uL [place] # (Auto) (0.1-1.2) X10*3/uL Eos # (Auto) (0.0-0.4) X10*3/uL Baso # (Auto) (0.0-0.2) X10*3/uL Abs Immat Gran (auto) (0.00-0.03) X10*3/uL Absolute Neuts (auto) (2.0-8.3) x10*3/uL Absolute Nucleated RBC (0.0-0.012) X10*3/uL Nucleated RBC % (auto) (0.0-0.2) /100WBC PT (10.9-12.4) SEC INR 0.9 (0.9-1.1) APTT 31.7 (26.0-36.8) SEC aPTT Heparin Protocol 31.7 L (53-77.9) SEC VBG pH 7.43 (7.32-7.43) VBG pCO2 49 mmHg VBG pO2 56 mmHg VBG HCO3 32 H (22-26) mmol/L VBG O2 Saturation 87.0 % VBG Base Excess 7.5 mmol/L Sodium (135-145) mmol/L Potassium (3.3-5.1) mmol/L Chloride (96-108) mmol/L Carbon Dioxide (22-29) mmol/L Anion Gap (12-20) BUN (9-16) mg/dL Creatinine (0.5-1.4) mg/dL Estim Creat Clear Calc Estimated GFR Random Glucose (60-115) mg/dL Calcium (8.4-10.2) mg/dL Total Bilirubin (0.0-1.0) mg/dL AST (5-31) U/L ALT (0-31) U/L Alkaline Phosphatase (39-117) U/L Troponin I High Sens (<3.5-17.0) ng/L Total Protein (6.5-8.0) g/dL Albumin (3.5-5.0) g/dL Discharge Plan Discharge Clinical Impression: ST elevation (STEMI) myocardial infarction Patient Disposition: [facility] Additional Instructions: transfer to [facility] Prescriptions: No Action pioglitazone 15 mg tablet 15 mg PO DAILY 30 Days Qty: 30 11RF metformin 1,000 mg Tablet 1,000 mg PO BID clopidogrel [Plavix] 75 mg tablet 75 mg PO DAILY Qty: 30 5RF lorazepam [Ativan] 1 mg tablet 1 mg PO BEDTIME PRN (Reason: anxiety/sleep) Qty: 10 0RF carvedilol [Coreg] 25 mg tablet 25 mg PO BID Qty: 60 0RF Rx Instructions: must administer with a meal/food lisinopril 40 mg tablet 40 mg PO DAILY Qty: 30 0RF nifedipine 90 mg Tablet Extended Release 24hr 90 mg PO BEDTIME omeprazole 40 mg capsule,delayed release(DR/EC) 20 mg PO DAILY@0630 PRN (Reason: Heartburn) multivitamin Tablet 1 tab PO DAILY aspirin [Adult Low Dose Aspirin] 81 mg tablet,delayed release (DR/EC) 81 mg PO DAILY escitalopram oxalate [Lexapro] 20 mg tablet 20 mg PO DAILY@1800 mirtazapine 45 mg tablet 45 mg PO BEDTIME atorvastatin [Lipitor] 80 mg tablet 80 mg PO BEDTIME Tresiba FlexTouch U-100 100 unit/mL (3 mL) insulin pen 10 unit subcut DAILY (DME) FreeStyle Lite Strips Strip See Rx Instructions Not Applicable QID Qty: 10 Rx Instructions: As directed hydralazine 50 mg tablet 75 mg PO TID Protocol: Hold for SBP< HOLD for SBP < : 90 isosorbide mononitrate 30 mg tablet extended release 24 hr 30 mg PO QAM hydrochlorothiazide 25 mg tablet 25 mg PO DAILY Jardiance 10 mg tablet 10 mg PO DAILY Print Language: Jamaican
[2024-01-08 20:36] LABS: INTERNATIONAL NORM RATIO 0.9 (0.9-1.1); Prothrombin Time 10.3 SEC (10.9-12.4); Prothrombin Time 10.4 SEC (10.9-12.4)
[2024-01-08 20:39] LABS: PTT Heparin Drip 31.7 SEC (53-77.9); Partial Thromboplastin Time 31.7 SEC (26.0-36.8)
[2024-01-08 20:47] LABS: VBG Base Excess 7.5 mmol/L; VBG HCO3 32 mmol/L (22-26); VBG pCO2 49 mmHg; VBG pH 7.43 (7.32-7.43); VBG pO2 56 mmHg
[2024-01-08 20:48] LABS: Venous Blood Gas Refer to POC result
[2024-01-08] MEDS: Heparin Sodium,Porcine 5,000 UNIT/ML VIAL 4000 UNIT IVPUSH (20:48)
[2024-01-08] MEDS: Heparin Sodium,Porcine/1/2NS 25,000 UNIT/250 ML IV.SOLN 7.93 UNIT IVCONT (20:50)
[2024-01-08] MEDS: Nitroglycerin 0.4 MG TAB.SUBL SUBLINGUAL (21:03)
[2024-01-09 02:30] VITALS: BP 176/66; PULSE 86; RESP 12; TEMP 36.8; O2SAT 97
--- NOTE | 2024-01-09 02:30 | PC.NURSE ---
2100 report called to [facility]
== END 2024-01-08 21:30 | disposition short-term general hospital (02) ==
PROVIDERS: Emergency Provider Student in an Organized Health Care Education/Training Program; PCP Family Medicine
DX: I21.3 ST elevation (STEMI) myocardial infarction of unspecified site (principal); R07.9 Chest pain, unspecified; R06.02 Shortness of breath; E11.9 Type 2 diabetes mellitus without complications; I10 Essential (primary) hypertension; Z79.899 Other long term (current) drug therapy
CPT/HCPCS: 36415; 70450; 71046; 80053; 82803; 84484; 85025; 85027; 85610; 85730; 93005; 96374; 99285; J1644

== ENCOUNTER → 2024-01-08 19:36 | Outpatient (BNV) | payer MEDICAID, SELFPAY | PROVIDERS: Emergency Provider Student in an Organized Health Care Education/Training Program; PCP Family Medicine; Visit Provider Internal Medicine | DX: R07.9 Chest pain, unspecified (principal); R94.31 Abnormal electrocardiogram [ECG] [EKG]; I45.19 Other right bundle-branch block | CPT/HCPCS: 93010 ==

== ENCOUNTER 2024-01-29 13:00 | Outpatient (REF) | payer MEDICAID, SELFPAY ==
[2024-01-29 14:05] LABS: Oxycodone Screen Urine Not Detected (Not Detect)
== END 2024-01-29 13:01 | disposition home or self-care (01) ==
LOC: HO.HHCLNP 13:00
PROVIDERS: Visit Provider Family Medicine
DX: M48.061 Spinal stenosis, lumbar region without neurogenic claudication (principal)
CPT/HCPCS: 80307

== ENCOUNTER 2024-01-30 09:25 | Outpatient (AMB) | payer MEDICAID, SELFPAY ==
--- OUTSIDE RECORDS SUMMARY | 2024-01-30 09:27 | XMS_ITS | Clinical Summary ---
Author Organization Unknown Care Team Providers Care Manager Business Continuity Name Role Phone ADILIA FELIPE, VIOLETA Unavailable Unavailable SURJIT DAVID, ERIC Unavailable Unavailable Payers Payer Name Policy Type Policy Number Effective Date Expira tion Date MEDICAID [facility] [id number] Problems Condition Name Condition Details Condition Category Status Onset Date Resolution Date Last Treatment Date Treating Clinician Comments ESSENTIAL (PRIMARY) HYPERTENSION Active 09-21 00:00: 00 ATHSCL HEART DISEASE OF [place] CORONARY ARTERY W/O ANG PCTRS Active 09-21 00:00: 00 NONRHEUMATIC AORTIC (VALVE) STENOSIS Active 09-21 00:00: 00 UNSPECIFIED MOOD [AFFECTIVE] DISORDER Active 09-21 00:00: 00 TYPE 2 DIABETES W DIABETIC PERIPHERAL ANGIOPATH W/O GANGRENE Active 09-21 00:00: 00 TYPE 2 DIABETES MELLITUS WITH DIABETIC POLYNEUROPAT HY Active 09-21 00:00: 00 UNSPECIFIED ASTHMA, UNCOMPLICATE D Active 09-21 00:00: 00 UNSPECIFIED OSTEOARTHRIT IS, UNSPECIFIED SITE Active 09-21 00:00: 00 NICOTINE DEPENDENCE, CIGARETTES, UNCOMPLICATE D Active 09-21 00:00: 00 CARE HOME (CURRENT) USE OF INSULIN Active 09-21 00:00: 00 CARE HOME (CURRENT) USE OF ANTITHROMBOT ICS/ANTIPLAT ELETS Active 09-21 00:00: 00 CORONARY ANGIOPLASTY STATUS Active 09-21 00:00: 00 Allergies, Adverse Reactions, Alerts Allergy Name Allergy Type Status Severity Reaction(s) Onset Date Inactive Date Treating Clinician Comments NAPROXEN SODIUM Propensity to adverse reactions Active 2023-09 21:45:3 5 LATEX Propensity to adverse reactions Active 2023-09 21:44:4 8 Medications Ordered Medication Name Filled Medication Name Start Date Stop Date Current Medication? Ordering Clinician Indication Dosage Frequency Signature (SIG) Comments Components nifedipine ER 60 mg tablet,exte nded release 24 hr 8-05 00:00: 00 Yes [id number] 60 mg AT BEDTIME 60 mg AT BEDTIME (route: oral) Med Classific ation: Cardiovas cular Therapy Agents oxycodone 5 mg tablet 09-04 00:00: 00 11-19 23:59 :00 No [id number] Unavailable 5 mg FIVE TIMES DAILY NEEDED 5 mg FIVE TIMES DAILY NEEDED (route: oral) Med Classific ation: Analgesic , Anti-infl ammatory or Antipyret ic gabapentin 600 mg tablet 09-03 00:00: 00 09-25 23:59 :00 No [id number] 600 mg 2 TIMES DAILY 600 mg 2 TIMES DAILY (route: oral) Med Classific ation: Central Nervous System Agents nicotine 21 mg/24 hr daily transdermal patch 08-30 00:00: 00 Yes [id number] Unavailable 21 mg DAILY 21 mg DAILY (route: transderma l) Med Classific ation: Chemical Dependenc y, Agents to Treat Alcohol Prep Pads 08-29 00:00: 00 Yes [id number] 1 pads, medicat ed DIRECTED THREE TIMES DAILY AND NEEDED 1 pads, medicated DIRECTED THREE TIMES DAILY AND NEEDED (route: topical) Med Classific ation: Antisepti cs and Disinfect ants amitriptyli ne 50 mg tablet 08-29 00:00: 00 Yes [id number] Unavailable 50 mg AT BEDTIME 50 mg AT BEDTIME (route: oral) Med Classific ation: Central Nervous System Agents Asmanex HFA 100 mcg/actuati on aerosol inhaler 08-29 00:00: 00 Yes [id number] 2 puff TWICE DAILY 2 puff TWICE DAILY (route: inhalation ) Med Classific ation: Respirato ry Therapy Agents atorvastati n 80 mg tablet 08-29 00:00: 00 Yes [id number] Unavailable 80 mg BEDTIME 80 mg BEDTIME (route: oral) Med Classific ation: Cardiovas cular Therapy Agents carvedilol 25 mg tablet 08-29 00:00: 00 Yes [id number] Unavailable 25 mg TWICE DAILY 25 mg TWICE DAILY (route: oral) Med Classific ation: Cardiovas cular Therapy Agents clopidogrel 75 mg tablet 08-29 00:00: 00 Yes [id number] 75 mg EVERY AM 75 mg EVERY AM (route: oral) Med Classific ation: Hematolog ical Agents docusate sodium 100 mg capsule 08-29 00:00: 00 09-25 23:59 :00 No [id number] Unavailable 100 mg TWICE DAILY 100 mg TWICE DAILY (route: oral) Med Classific ation: Gastroint estinal Therapy Agents escitalopra m 20 mg tablet 08-29 00:00: 00 Yes [id number] Unavailable 20 mg EVERY PM 20 mg EVERY PM (route: oral) Med Classific ation: Central Nervous System Agents FeroSul 325 mg (65 mg iron) tablet 08-29 00:00: 00 09-25 23:59 :00 No [id number] Unavailable 325 mg TWICE DAILY IN THE MORNING AND AT BEDTIME 325 mg TWICE DAILY IN THE MORNING AND AT BEDTIME (route: oral) Med Classific ation: Electroly te Balance-N utritiona l Products gabapentin 800 mg tablet 08-29 00:00: 00 Yes [id number] 800 mg 2 TIMES DAILY 800 mg 2 TIMES DAILY (route: oral) Med Classific ation: Central Nervous System Agents hydralazine 25 mg tablet 08-29 00:00: 00 Yes [id number] Unavailable 25 mg 3 TIMES DAILY 25 mg 3 TIMES DAILY (route: oral) Med Classific ation: Cardiovas cular Therapy Agents hydralazine 50 mg tablet 08-29 00:00: 00 09-25 23:59 :00 No [id number] Unavailable 50 mg THREE TIMES DAILY IN THE MORNING AT 50 mg THREE TIMES DAILY IN THE MORNING AT (route: oral) Med Classific ation: Cardiovas cular Therapy Agents mirtazapine 45 mg tablet 08-29 00:00: 00 Yes [id number] Unavailable 45 mg AT BEDTIME 45 mg AT BEDTIME (route: oral) Med Classific ation: Central Nervous System Agents omeprazole 20 mg capsule,del ayed release 08-29 00:00: 00 Yes [id number] 20 mg TWICE DAILY 20 mg TWICE DAILY (route: oral) Med Classific ation: Gastroint estinal Therapy Agents lisinopril 40 mg tablet 09-25 00:00: 00 Yes [id number] 40 mg DAILY 40 mg DAILY (route: oral) Med Classific ation: Cardiovas cular Therapy Agents metformin 1,000 mg tablet 09-25 00:00: 00 Yes [id number] 1000 mg 2 TIMES DAILY 1000 mg 2 TIMES DAILY (route: oral) Med Classific ation: Endocrine multivitami n tablet 09-25 00:00: 00 Yes [id number] 1 tablet DAILY 1 tablet DAILY (route: oral) Med Classific ation: Electroly te Balance-N utritiona l Products nifedipine ER 60 mg tablet,exte nded release 09-25 00:00: 00 Yes [id number] 60 mg EVERY PM 60 mg EVERY PM (route: oral) Med Classific ation: Cardiovas cular Therapy Agents pioglitazon e 15 mg tablet 09-25 00:00: 00 Yes [id number] 15 mg DAILY 15 mg DAILY (route: oral) Med Classific ation: Endocrine Tresiba FlexTouch U-100 insulin 100 unit/mL (3 mL) subcutane s pen 09-25 00:00: 00 Yes [id number] 10 In unit DAILY 10 In unit DAILY (route: subcutaneo ) Med Classific ation: Endocrine Vital Signs Vital Name Observation Time Observation Value Commen ts Temperature 2024-01-29 11:50:00.000 98 [degF] Temperature 2024-01-28 22:43:00.000 98 [degF] Temperature 2024-01-27 11:14:00.000 97.5 [degF] Temperature 2024-01-26 15:22:00.000 98.1 [degF] Temperature 2024-01-25 13:45:00.000 97.9 [degF] Temperature 2024-01-24 14:19:00.000 97.8 [degF] Plan of Treatment Planned Activity Planned Date Details Comments Future Scheduled Test SKILLED NU RSE TO EVALUATE PATIENT, IDENTIFY PRIMARY AND CO-MORBID CONDITIONS CODED PER CODING GUIDELINES, AND DEVELOP PATIENT SPECIFIC PLAN OF CARE THAT INCLUDES PATIENT GOAL FOR HOME HEALTH. [code = SKILLED NURSE TO EVALUATE PATIENT, IDENTIFY PRIMARY AND CO-MORBID CONDITIONS CODED PER CODING GUIDELINES, AND DEVELOP PATIENT SPECIFIC PLAN OF CARE THAT INCLUDES PATIENT GOAL FOR HOME HEALTH.] Future Scheduled Test SKILLED NU RSE TO PERFORM HOME SAFETY AND FALL ASSESSMENT AND PROVIDE INSTRUCTION TO IMPLEMENT HOME SAFETY AND FALL PREVENTION STRATEGIES. [code = SKILLED NURSE TO PERFORM HOME SAFETY AND FALL ASSESSMENT AND PROVIDE INSTRUCTION TO IMPLEMENT HOME SAFETY AND FALL PREVENTION STRATEGIES.] Future Scheduled Test PATIENT LIRIANO S A RISK OF HOSPITALIZATION AND ED USE. SKILLED NURSE TO ESTABLISH SUPPORT MEASURES TO MINIMIZE RISK OF HOSPITALIZATION AND ED USE, AND INSTRUCT PATIENT/CAREGIVER ON METHODS TO REDUCE AVOIDABLE HOSPITALIZATION AND ED USE. [code = PATIENT HAS A RISK OF HOSPITALIZATION AND ED USE. SKILLED NURSE TO ESTABLISH SUPPORT MEASURES TO MINIMIZE RISK OF HOSPITALIZATION AND ED USE, AND INSTRUCT PATIENT/CAREGIVER ON METHODS TO REDUCE AVOIDABLE HOSPITALIZATION AND ED USE.] Future Scheduled Test SKILLED NU RSE TO PROVIDE INSTRUCTION TO PATIENT/CAREGIVER RELATED TO DISCHARGE PLANNING. [code = SKILLED NURSE TO PROVIDE INSTRUCTION TO PATIENT/CAREGIVER RELATED TO DISCHARGE PLANNING.] Future Scheduled Test SKILLED NU RSE WILL MAINTAIN SITUATIONAL AWARENESS FOR SAFETY AND WILL NOTIFY CLINICAL SKETCH LINER AND PHYSICIAN/PROVIDER WITH ANY CHANGE IN CONDITION. [code = SKILLED NURSE WILL MAINTAIN SITUATIONAL AWARENESS FOR SAFETY AND WILL NOTIFY CLINICAL SKETCH LINER AND PHYSICIAN/PROVIDER WITH ANY CHANGE IN CONDITION.] Future Scheduled Test SKILLED NU RSE FOR O/A OF GENERAL HEALTH STATUS OF PAIN, CARDIAC, RESPIRATORY, GASTROINTESTINAL, GENITOURINARY, SKIN, NEUROLOGIC, ENDOCRINE SYSTEMS TO IDENTIFY CHANGES ASSOCIATED WITH EXACERBATION FOR EARLY INTERVENTION OF COMPLICATIONS DAILY [code = SKILLED NURSE FOR O/A OF GENERAL HEALTH STATUS OF PAIN, CARDIAC, RESPIRATORY, GASTROINTESTINAL, GENITOURINARY, SKIN, NEUROLOGIC, ENDOCRINE SYSTEMS TO IDENTIFY CHANGES ASSOCIATED WITH EXACERBATION FOR EARLY INTERVENTION OF COMPLICATIONS DAILY ] Future Scheduled Test SKILLED NU RSE TO REVIEW PATIENT MEDICATIONS. INSTRUCT PATIENT/CAREGIVER ON MONITORING OF EFFECTIVENESS, ADVERSE DRUG REACTIONS, SIDE EFFECTS OF ALL MEDICATIONS (PRESCRIPTION/-OTC), AND HOW AND WHEN TO REPORT PROBLEMS. [code = SKILLED NURSE TO REVIEW PATIENT MEDICATIONS. INSTRUCT PATIENT/CAREGIVER ON MONITORING OF EFFECTIVENESS, ADVERSE DRUG REACTIONS, SIDE EFFECTS OF ALL MEDICATIONS (PRESCRIPTION/-OTC), AND HOW AND WHEN TO REPORT PROBLEMS.] Future Scheduled Test SKILLED NU RSE TO ADMINISTER MEDICATIONS DAILY AND PRE-POUR MEDICATIONS TILL NEXT SENIOR CARE VISIT PER MEDICATION LIST. [code = SKILLED NURSE TO ADMINISTER MEDICATIONS DAILY AND PRE-POUR MEDICATIONS TILL NEXT SENIOR CARE VISIT PER MEDICATION LIST.] Future Scheduled Test SKILLED NU RSE FOR MEDICATION ADMINISTRATION PER MEDICATION LIST TO BE PERFORMED DAILY [code = SKILLED NURSE FOR MEDICATION ADMINISTRATION PER MEDICATION LIST TO BE PERFORMED DAILY ] Future Scheduled Test SKILLED NU RSE FOR O/A AND SKILLED TEACHING RELATED TO MANAGEMENT OF DEPRESSIVE SYMPTOMS AND/OR DEPRESSION. SN TO REPORT SIGNIFICANT CHANGE IN DEPRESSIVE SYMPTOMS TO CLINICAL PROVIDER FOR EARLY INTERVENTION. [code = SKILLED NURSE FOR O/A AND SKILLED TEACHING RELATED TO MANAGEMENT OF DEPRESSIVE SYMPTOMS AND/OR DEPRESSION. SN TO REPORT SIGNIFICANT CHANGE IN DEPRESSIVE SYMPTOMS TO CLINICAL PROVIDER FOR EARLY INTERVENTION.] Future Scheduled Test SKILLED NU RSE TO ASSESS PATIENTS PSYCHOSOCIAL STATUS TO IDENTIFY POTENTIAL ISSUES THAT MAY COMPLICATE THE PROVISION OF THE PLAN OF CARE INCLUDING THE PATIENTS ABILITY TO ACCESS COMMUNITY RESOURCES AND PSYCHOSOCIAL SUPPORT SERVICES. [code = SKILLED NURSE TO ASSESS PATIENTS PSYCHOSOCIAL STATUS TO IDENTIFY POTENTIAL ISSUES THAT MAY COMPLICATE THE PROVISION OF THE PLAN OF CARE INCLUDING THE PATIENTS ABILITY TO ACCESS COMMUNITY RESOURCES AND PSYCHOSOCIAL SUPPORT SERVICES.] Future Scheduled Test SKILLED NU RSE FOR O/A OF CLIENT'S SOCIAL ISOLATION AND PROVIDE ASSISTANCE TO CLIENT IN DEVELOPMENT OF PLANNED ACTIVITIES [code = SKILLED NURSE FOR O/A OF CLIENT'S SOCIAL ISOLATION AND PROVIDE ASSISTANCE TO CLIENT IN DEVELOPMENT OF PLANNED ACTIVITIES] Goal 2023-11-20 Patient Goal - LOWERING MY B LOOD PRESSURE Goal 2024-01-19 Patient Goal - LOWERING MY B LOOD PRESSURE Goal Patient Goal - LOWERING MY B LOOD PRESSURE Goal Provider Goal - A PLAN OF CARE WILL BE ESTABLISHED THAT MEETS PATIENT'S SENIOR CARE NEEDS AND INCLUDES PATIENT GOAL FOR HOME HEALTH. Goal Provider Goal - PATIENT/CAREGIVER WILL VERBALIZE/DEMONSTRATE EFFECTIVE HOME SAFETY AND FALL PREVENTION STRATEGIES THROUGHOUT CERTIFICATION PERIOD. Goal Provider Goal - PATIENT WILL HAVE SUPPORT MEASURES ESTABLISHED TO PREVENT HOSPITALIZATION AND ED USE AND PATIENT/CAREGIVER WILL VERBALIZE/DEMONSTRATE METHODS TO REDUCE AVOIDABLE HOSPITALIZATION AND ED USE BY END OF EPISODE. Goal Provider Goal - PATIENT/CAREGIVER WILL VERBALIZE UNDERSTANDING OF DISCHARGE PLANNING INSTRUCTIONS BY DATE OF DISCHARGE. Goal Provider Goal - PATIENT WILL REMAIN SAFE IN THE COMMUNITY AND WILL BE FREE OF DANGER TO SELF AND OTHERS THROUGHOUT THE CERTIFICATION PERIOD. Goal Provider Goal - CHANGE IN GENERAL HEALTH STATUS WILL BE IDENTIFIED AND REPORTED TO PHYSICIAN FOR PROMPT INTERVENTION TO MINIMIZE ASSOCIATED RISKS THROUGHOUT CERTIFICATION PERIOD. Goal Provider Goal - PATIENT/CAREGIVER WILL VERBALIZE UNDERSTANDING OF EDUCATION PROVIDED ON MEDICATIONS BY THE END OF THE CERTIFICATION PERIOD. Goal Provider Goal - PATIENT WILL COMPLY WITH MEDICATION WHEN SKILLED NURSE ADMINISTERS AND PRE-POURS MEDICATION THROUGHOUT CERTIFICATION PERIOD. Goal Provider Goal - PATIENT WILL COMPLY WITH MEDICATION WHEN NURSE ADMINISTERS THROUGHOUT CERTIFICATION PERIOD. Goal Provider Goal - PATIENT WILL REMAIN SAFE WITHOUT DECOMPENSATION IN DEPRESSIVE CONDITION, WHILE MAINTAINING OPTIMAL LEVEL OF MENTAL HEALTH AND WELL BEING THROUGHOUT CERTIFICATION PERIOD. Goal Provider Goal - PSYCHOSOCIAL NEEDS WILL BE IDENTIFIED AND PLAN IMPLEMENTED TO MINIMIZE RISK THROUGHOUT CERTIFICATION PERIOD. Goal Provider Goal - PATIENT WILL DEMONSTRATE AN INCREASED INTEREST IN SOCIALIZATION AND ACTIVITIES BY THE END OF THE CERTIFICATION PERIOD. Encounters Start Date/Time End Date/Time Encounter Type Admission Type Attending [facility] Care Department Encounter ID Discharge Date Discharge Status Discharge Condition Discharge Reason Percent Goals Met 2023-09-26 00:00:00 2024-03-23 00:00:00 Outpatient RECERTIFIC ATION ERIC EDDY [facility] [id number] 3.33
--- OUTSIDE RECORDS SUMMARY | 2024-01-30 09:27 | XMS_ITS | Clinical Summary ---
Author Organization Unknown Care Team Providers Care Plumbing Technician Name Role Phone ADILIA FELIPE, VIOLETA Unavailable Unavailable SURJIT DAVID, ERIC Unavailable Unavailable Payers Payer Name Policy Type Policy Number Effective Date Expira tion Date MEDICAID [facility] [id number] Problems Condition Name Condition Details Condition Category Status Onset Date Resolution Date Last Treatment Date Treating Clinician Comments ESSENTIAL (PRIMARY) HYPERTENSION Active 09-21 00:00: 00 ATHSCL HEART DISEASE OF [place] CORONARY ARTERY W/O ANG PCTRS Active 09-21 [...] CIGARETTES, UNCOMPLICATE D Active 09-21 00:00: 00 ALF (CURRENT) USE OF INSULIN Active 09-21 00:00: 00 ALF (CURRENT) USE OF ANTITHROMBOT ICS/ANTIPLAT ELETS Active [...] release 24 hr 8-05 00:00: 00 Yes [id number] 60 mg AT BEDTIME 60 mg AT BEDTIME (route: oral) Med Classific ation: Cardiovas cular Therapy Agents oxycodone 5 mg tablet 09-04 00:00: 00 11-19 23:59 :00 No [id number] Unavailable 5 mg FIVE TIMES DAILY NEEDED 5 mg FIVE TIMES DAILY NEEDED (route: oral) Med Classific ation: Analgesic , Anti-infl ammatory or Antipyret ic gabapentin 600 mg tablet 09-03 00:00: 00 09-25 23:59 :00 No [id number] 600 mg 2 TIMES DAILY 600 mg 2 TIMES DAILY (route: oral) Med Classific ation: Central Nervous System Agents nicotine 21 mg/24 hr daily transdermal patch 08-30 00:00: 00 Yes [id number] Unavailable 21 mg DAILY 21 mg DAILY (route: transderma l) Med Classific ation: Chemical Dependenc y, Agents to Treat Alcohol Prep Pads 08-29 00:00: 00 Yes [id number] 1 pads, medicat ed DIRECTED THREE TIMES DAILY AND NEEDED 1 pads, medicated DIRECTED THREE TIMES DAILY AND NEEDED (route: topical) Med Classific ation: Antisepti cs and Disinfect ants amitriptyli ne 50 mg tablet 08-29 00:00: 00 Yes [id number] Unavailable 50 mg AT BEDTIME 50 mg AT BEDTIME (route: oral) Med Classific ation: Central Nervous System Agents Asmanex HFA 100 mcg/actuati on aerosol inhaler 08-29 00:00: 00 Yes [id number] 2 puff TWICE DAILY 2 puff TWICE DAILY (route: inhalation ) Med Classific ation: Respirato ry Therapy Agents atorvastati n 80 mg tablet 08-29 00:00: 00 Yes [id number] Unavailable 80 mg BEDTIME 80 mg BEDTIME (route: oral) Med Classific ation: Cardiovas cular Therapy Agents carvedilol 25 mg tablet 08-29 00:00: 00 Yes [id number] Unavailable 25 mg TWICE DAILY 25 mg TWICE DAILY (route: oral) Med Classific ation: Cardiovas cular Therapy Agents clopidogrel 75 mg tablet 08-29 00:00: 00 Yes [id number] 75 mg EVERY AM 75 mg EVERY AM (route: oral) Med Classific ation: Hematolog ical Agents docusate sodium 100 mg capsule 08-29 00:00: 00 09-25 23:59 :00 No [id number] Unavailable 100 mg TWICE DAILY 100 mg TWICE DAILY (route: oral) Med Classific ation: Gastroint estinal Therapy Agents escitalopra m 20 mg tablet 08-29 00:00: 00 Yes [id number] Unavailable 20 mg EVERY PM 20 mg EVERY PM (route: oral) Med Classific ation: Central Nervous System Agents FeroSul 325 mg (65 mg iron) tablet 08-29 00:00: 00 09-25 23:59 :00 No [id number] Unavailable 325 mg TWICE DAILY IN THE MORNING AND AT BEDTIME 325 mg TWICE DAILY IN THE MORNING AND AT BEDTIME (route: oral) Med Classific ation: Electroly te Balance-N utritiona l Products gabapentin 800 mg tablet 08-29 00:00: 00 Yes [id number] 800 mg 2 TIMES DAILY 800 mg 2 TIMES DAILY (route: oral) Med Classific ation: Central Nervous System Agents hydralazine 25 mg tablet 08-29 00:00: 00 Yes [id number] Unavailable 25 mg 3 TIMES DAILY 25 mg 3 TIMES DAILY (route: oral) Med Classific ation: Cardiovas cular Therapy Agents hydralazine 50 mg tablet 08-29 00:00: 00 09-25 23:59 :00 No [id number] Unavailable 50 mg THREE TIMES DAILY IN THE MORNING AT 50 mg THREE TIMES DAILY IN THE MORNING AT (route: oral) Med Classific ation: Cardiovas cular Therapy Agents mirtazapine 45 mg tablet 08-29 00:00: 00 Yes [id number] Unavailable 45 mg AT BEDTIME 45 mg AT BEDTIME (route: oral) Med Classific ation: Central Nervous System Agents omeprazole 20 mg capsule,del ayed release 08-29 00:00: 00 Yes [id number] 20 mg TWICE DAILY 20 mg TWICE DAILY (route: oral) Med Classific ation: Gastroint estinal Therapy Agents lisinopril 40 mg tablet 09-25 00:00: 00 Yes [id number] 40 mg DAILY 40 mg DAILY (route: oral) Med Classific ation: Cardiovas cular Therapy Agents metformin 1,000 mg tablet 09-25 00:00: 00 Yes [id number] 1000 mg 2 TIMES DAILY 1000 mg 2 TIMES DAILY (route: oral) Med Classific ation: Endocrine multivitami n tablet 09-25 00:00: 00 Yes [id number] 1 tablet DAILY 1 tablet DAILY (route: oral) Med Classific ation: Electroly te Balance-N utritiona l Products nifedipine ER 60 mg tablet,exte nded release 09-25 00:00: 00 Yes [id number] 60 mg EVERY PM 60 mg EVERY PM (route: oral) Med Classific ation: Cardiovas cular Therapy Agents pioglitazon e 15 mg tablet 09-25 00:00: 00 Yes [id number] 15 mg DAILY 15 mg DAILY (route: oral) Med Classific ation: Endocrine Tresiba FlexTouch U-100 insulin 100 unit/mL (3 mL) subcutane s pen 09-25 00:00: 00 Yes [id number] 10 In unit DAILY 10 In unit [...] AWARENESS FOR SAFETY AND WILL NOTIFY CLINICAL SPORTSPERSONS AND PHYSICIAN/PROVIDER WITH ANY CHANGE IN CONDITION. [code = SKILLED NURSE WILL MAINTAIN SITUATIONAL AWARENESS FOR SAFETY AND WILL NOTIFY CLINICAL SPORTSPERSONS AND PHYSICIAN/PROVIDER WITH ANY CHANGE IN CONDITION.] [...] MEDICATIONS DAILY AND PRE-POUR MEDICATIONS TILL NEXT RESIDENTIAL VISIT PER MEDICATION LIST. [code = SKILLED NURSE TO ADMINISTER MEDICATIONS DAILY AND PRE-POUR MEDICATIONS TILL NEXT RESIDENTIAL VISIT PER MEDICATION LIST.] Future Scheduled Test [...] CARE WILL BE ESTABLISHED THAT MEETS PATIENT'S RESIDENTIAL NEEDS AND INCLUDES PATIENT GOAL FOR HOME [...] End Date/Time Encounter Type Admission Type Attending [facility] Care Department Encounter ID Discharge Date Discharge Status Discharge Condition Discharge Reason Percent Goals Met 2023-09-26 00:00:00 2024-03-23 00:00:00 Outpatient RECERTIFIC ATION ERIC EDDY [facility] [id number] 3.33
[2024-01-30 09:32] VITALS: BP 120/64; PULSE 78; O2SAT 95; BMI 23.8
--- NOTE | 2024-01-30 09:32 | HO.NEPHOV_ITS ---
Vital Signs 01/30/24 09:32 Height 5 ft 5 in Weight 143 lb BMI 23.8 BP 120/64 Blood Pressure Location Lt brachial Position Sitting Pulse 78 Pulse Source Pulse Oximeter Pulse Oximetry (%) 95 Oxygen Delivery Method Room Air Intake Visit Reasons: 3 mon follow up/ Conf [employer] Required: Yes [employer] Services: [employer] Offered & Declined (Daughter will translate) Accompanied by: Daughter Allergies latex [LATEX] Allergy (Severe, Verified 01/30/24 09:34) RASH naproxen [From NAPROSYN] Adverse Reaction (Intermediate, Verified 01/30/24 09:34) TACHYCARDIA Medication List - Last Reconciled 01/30/24 by Pratik Horn MD aspirin (Adult Low Dose Aspirin) 81 mg PO DAILY atorvastatin (Lipitor) 80 mg PO BEDTIME blood sugar diagnostic (FreeStyle Lite Strips) As directed carvedilol (Coreg) 25 mg PO BID clopidogrel (Plavix) 75 mg PO DAILY docusate sodium 100 mg PO BID empagliflozin (Jardiance) 10 mg PO DAILY escitalopram oxalate (Lexapro) 20 mg PO DAILY@1800 ferrous fumarate 325 mg PO DAILY hydrochlorothiazide 25 mg PO DAILY insulin degludec (Tresiba FlexTouch U-100 insulin) 10 units subcut DAILY isosorbide mononitrate ER 30 mg PO QAM lisinopril 40 mg PO DAILY lorazepam (Ativan) 1 mg PO BEDTIME PRN metformin 1,000 mg PO BID mirtazapine 45 mg PO BEDTIME multivitamin 1 tab PO DAILY nifedipine ER 90 mg PO BEDTIME omeprazole 20 mg PO DAILY@0630 PRN pioglitazone 15 mg PO DAILY 30 days HPI Comments Details: . Rocío is a 62-year-old woman with a significant vascular disease and resistant hypertension. She is on multiple antihypertensive medications in the blood pressure is still suboptimal. She did not bring her list of medications. However from the available data it appears that she is on amlodipine 10 mg carvedilol 25 mg twice a day clonidine patch, hydralazine 50 mg t.i.d. lisinopril 40 mg and hydrochlorothiazide 25 mg. She tells me that she has been compliant with her medications. There is a question of renal artery stenosis. However she had a Doppler ultrasound a year ago which was inconclusive however she had a CT angiogram in 2021 which did not reveal any significant renal artery stenosis. She has normal renal function with a creatinine of less than 1. She has non nephrotic range proteinuria with a urine protein creatinine ratio revealing 1000 mg of protein excretion. She has carotid artery disease with 60-70% mid RCA stenosis History of peripheral vascular disease status post fem-pop bypass surgery and left femoral endarterectomy and left popliteal thrombectomy. She has a history of smoking for many years. She continues to smoke half a pack per day. She has dyslipidemia with a total cholesterol of 240 and LDL of 165. She is on atorvastatin 80 mg daily. 07/27/2023. She is accompanied by her daughter. She is tolerating Aldactazide. Yesterday her blood pressure was around 200 mm Hg systolic. However she did not take her medications yesterday. Today she is feeling fine office readings are excellent. Renal angiogram is still pending 08/21/2023. Accompanied by her daughter. She tells me that her blood pressure increases every time she takes hydralazine therefore she stopped taking hydralazine. At present she is on lisinopril 40 mg and Aldactazide 25/25 1 a day. Upon talking to her I am not sure if she is really taking her medications. She was scheduled for renal angiogram next week. No specific complaints today 11/10/2023. She underwent renal angiogram which did not reveal any stenosis of large arteries. He was in the ER twice with elevated blood pressure. She was scheduled for coronary angiogram next month in [facility]. She did not bring her medications today but it was cross checked with pharmacy 11/15/2023. Seen in [facility] ER 2 days ago. Here for follow up with family. She was scheduled for coronary angiogram in the next few weeks All medications were reviewed 01/30/24 Bp well controlled. CArdiac work up in progress [facility] Medical History NSTEMI (non-ST elevated myocardial infarction) Mild aortic valve stenosis LORE (obstructive sleep apnea) Chronic low back pain Lumbar spinal stenosis HTN (hypertension) Vitamin D deficiency HLD (hyperlipidemia) T2DM (type 2 diabetes mellitus) H. pylori infection CAD (coronary artery disease) Cyst (solitary) of breast Kidney calculi Arthritis Asthma HTN (hypertension) Diabetes Surgical History History of right-sided carotid endarterectomy (~11/2022) S/P aortogram History of esophagogastroduodenoscopy (EGD) Hx of colonoscopy History of breast surgery History of cardiac cath Family History Mother Diabetes Liver cancer Social History Household Members: Children Household Members Other:: friend and adult son Housing: Apartment Are you a primary child care centre director to a significant other at home: No Do you presently have visiting nurse or other home services: Yes (RN 2x/week) Alcohol intake: never Comment: refuses bed alarm Patient Tobacco Use Status: Current everyday Tobacco user Tobacco use type: Cigarette Cigarette Packs Per Day: 1 Cigarettes Per Day: 4 Years Smoked: 30 e-Cigarette/Vaping Use: Currently Using Second Hand Smoke Exposure: Yes Advance Directives Date on File: 09/26/23 service: No Current occupational status: unemployed and disabled Physical Exam Vital Signs: Last Vital Signs Pulse 78 01/30/24 09:32 BP 120/64 01/30/24 09:32 Pulse Ox 95 01/30/24 09:32 Oxygen Delivery Method Room Air 01/30/24 09:32 BMI result Body Mass Index 23.8 Results Reviewed Nephrology Results: Hgb 10.5 g/dl (12.0-16.0) L 01/08/24 WBC 7.4 X10*3/uL (4.8-10.8) 01/08/24 Plt Count 296 X10*3/uL (160-400) 01/08/24 Sodium 137 mmol/L (135-145) 01/08/24 Potassium 4.1 mmol/L (3.3-5.1) 01/08/24 Chloride 101 mmol/L (96-108) 01/08/24 Carbon Dioxide 27 mmol/L (22-29) 01/08/24 BUN 22 mg/dL (9-16) H 01/08/24 Creatinine 1.05 mg/dL (0.5-1.4) 01/08/24 Calcium 8.8 mg/dL (8.4-10.2) 01/08/24 Assessment & Plan Assessment & Plan (1) HTN (hypertension): Code(s): I10 - Essential (primary) hypertension Category: Medical (2) PVD (peripheral vascular disease): Code(s): I73.9 - Peripheral vascular disease, unspecified Category: Medical (3) Proteinuria: Code(s): R80.9 - Proteinuria, unspecified Category: Medical (4) Anemia: Code(s): D64.9 - Anemia, unspecified Category: Medical (5) T2DM (type 2 diabetes mellitus): Code(s): E11.9 - Type 2 diabetes mellitus without complications Category: Medical Qualifiers: Diabetes mellitus complication detail: with diabetic retinopathy Diabetes mellitus complication status: with ophthalmic complications Diabetes mellitus mcc insulin use: without mcc use Diabetes mellitus macular edema: with macular edema Diabetic retinopathy severity: with mild nonproliferative retinopathy Laterality: bilateral Qualified Code(s): E11.3213 - Type 2 diabetes mellitus with mild nonproliferative diabetic retinopathy with macular edema, bilateral (6) Hypertension: Code(s): I10 - Essential (primary) hypertension Category: Medical Plan . Rocío has a resistant hypertension in a setting of significant vascular disease. She probably has underlying renal artery stenosis. Back in 2021 renal angiogram did not reveal any stenosis. However the ultrasonogram was inconclusive. Based on the history and clinical findings we still need to rule out renal artery stenosis. renal angiogram. NO stenosis of large vessels ( August 2023 ) Today the blood pressure is acceptable no changes were made. Follow renal function and potassium 24 hour ambulatory blood pressure monitoring was incomplete and results are inconclusive I discussed low-salt diet and smoking cessation again. At present renal function is stable. She has non nephrotic range proteinuria most likely due to hypertensive diabetic kidney disease. She is at risk for ongoing renal injury from suboptimally controlled blood pressure. Continue to maximize CHERRI inhibition for renal protection. She will benefit from SGLT2 inhibitors. . Orders: Orders Basic Metabolic Panel 2 Months I10 - Essential (primary) hypertension Coding Level of Care Code Est Pt Level 4 (94776) Diagnoses Hypertension, unspecified type I10 PVD (peripheral vascular disease) I73.9 Proteinuria R80.9 Anemia D64.9 Type 2 diabetes mellitus with both eyes affected by mild nonproliferative retinopathy and macular edema, without long-term current use of insulin E11.3213 Diabetes mellitus complication detail: with diabetic retinopathy Diabetes mellitus complication status: with ophthalmic complications Diabetes mellitus vermin exterminator insulin use: without vermin exterminator use Diabetes mellitus macular edema: with macular edema Diabetic retinopathy severity: with mild nonproliferative retinopathy Laterality: bilateral
== END 2024-01-30 09:44 | disposition home or self-care (01) ==
PROVIDERS: PCP Family Medicine; Visit Provider Internal Medicine Hypertension Specialist
DX: I10 Essential (primary) hypertension (principal); I73.9 Peripheral vascular disease, unspecified; E11.3213 Type 2 diabetes mellitus with mild nonproliferative diabetic retinopathy with macular edema, bilateral; R80.9 Proteinuria, unspecified; D64.9 Anemia, unspecified
CPT/HCPCS: 99214

== ENCOUNTER → 2024-01-30 09:25 | Outpatient (BNVA) | payer MEDICAID, SELFPAY | PROVIDERS: PCP Family Medicine; Visit Provider Internal Medicine Hypertension Specialist | DX: I1A.0 Resistant hypertension (principal); E11.3213 Type 2 diabetes mellitus with mild nonproliferative diabetic retinopathy with macular edema, bilateral; R80.9 Proteinuria, unspecified; I73.9 Peripheral vascular disease, unspecified; D64.9 Anemia, unspecified | CPT/HCPCS: 99212 ==

== ENCOUNTER 2024-04-04 10:51 | Outpatient (REF) | payer MEDICAID, SELFPAY ==
--- OUTSIDE RECORDS SUMMARY | 2024-04-04 12:04 | XMS_ITS | Encounter Summary ---
Author Organization [employer] Address [address] [facility] [address] [place] [address] Care Team Providers Care Manager Of Sales Name Role Phone Radha Jamison DO Primary Care Provider [phone] Nelia Sullivan PharmD Unavailable [phone] Reason for Visit * Reason Comments Med Refill Encounter Details Date Type Department Care Team ([facility] st Contact Info) Description 02/29/2024 Refill [facility] [address] [place], [place] [phone] Radha Jamison DO [address] [place] [address] Chronic bilateral low back pain, unspecified whether sciatica present Social History Tobacco Use Types Packs/Day Years Used Date Smoking Tobacco: Every Day Cigarettes 1 44.6 Started: 08/31/1979 Passive Smoke Exposure: Current Smokeless Tobacco: Never Alcohol Use Standard Drinks/Week Comments Never 0 (1 standard drink = 0.6 oz pur e alcohol) Depression Answer Date Recorded Patient Health Questionnaire-9 Score 10 12/21/2023 Patient Health Questionnaire-9 Score 10 12/21/2023 Last PHQ-9: Questionnaire Data Not on file 1 02/19/2023 Housing Stability Answer Date Recorded What is your housing situation today? I do not have housing (Staying with others, in a hotel, in a long term, living outside on the street, on a beach, in a car, or in a park 07/31/[address] you li ve. Do you have problems with any of the following? None of the above 07/31/2023 Food Insecurity Answer Date Recorded Within the past 12 months, y ou worried that your food would run out before you got money to buy more: Sometimes True 2023 Within the past 12 months,th e food you bought just didn't last and you didn't have enough money to get more: Sometimes True 07/31/2023 Transportation Answer Date Recorded In the past 12 months, has l ack of transportation kept you from medical appts, meetings, work or from getting things needed for daily living? Yes, it has kept me from medical appointments or getting medications. 07/31/2023 Utilities Answer Date Recorded In the past 12 months, has t he [employer], gas, oil or water [employer] threatened to shut off services in your home? No 07/31/2023 Depression Answer Date Recorded Patient Health Questionnaire-2 Score 3 12/21/2023 Internet Access Answer Date Recorded Internet Access Q1 Yes 10/14/2023 Internet Access Q2 I do not want or need it 09/15 Comments Unknown Sex and Gender Information Value Date Recorded Sex Assigned at Female 12/13/2021 10:16 AM EDT Legal Sex Female 10:16 AM EDT Gender Identity Choose not to disclose 10:16 AM EDT Sexual Orientation Straight 12/13/2021 10 :16 AM EDT documented as of this encounter Miscellaneous Notes * Telephone Encounter - Acacia Chakraborty RN - 02/29/2024 2:54 PM EST Pt was notified yesterday no further refills until seen by PCP or seen by PRESS SETTER. Scheduled PRESS SETTER 03/05/24. documented in this encounter Plan of Treatment Upcoming Encounters Date Type Department Care Team (Late st Contact Info) Description 04/17/2024 9:30 AM EST Clinical Support [facility] [address] [place] [address] Acacia Chakraborty RN 04/24/2024 2:30 PM EDT Office Visit [facility] [address] [place] [address] Peter Peña DDS [address] [place] [address] 05/09/2024 10:30 AM EDT Medication Management [facility] [address] [place] [phone] Nelia Sullivan PharmD [place], [place] 05/28/2024 9:45 AM EDT Office Visit [facility] [address] [place] [address] [phone] Radha Jamison DO [address] [place], [place] documented as of this encounter Goals Goal Patient Goal Type Associated Problems Recent Progress Patient-Stated? Author Record your blood pressure once per day Blood Pressure No Nelia Sullivan PharmAdrian Blood Pressure < 140/90 Blood Pressure 130/64(2024 10:40 AM EST) No Nelia Sullivan PharmAdrian Smoking cessation General No Nelia Sullivan PharmD Patient will adhere to medication regimen General No Nelia Sullivan PharmD Hemoglobin A1c < 7 Result Component 10.6(03/05/19 12:27 PM EST) No Abdias Murillo PharmD Record your blood sugar as directed Result Component No Nelia Sullivan PharmD Note: Use CGM, ensuring sensor is scanned at least once every 8 hours to capture 24H data. Check BG manually, as directed. documented as of this encounter Visit Diagnoses Diagnosis Chronic bilateral low back pain, unspecified whether sciatica present documented in this encounter Additional Health Concerns Assessment Noted Time PHQ-9 Depression Total Score: 10 024 10:24 AM EST documented as of this encounter Care Teams Manager Of Sales Relationship Specialty Start Date End Date Radha Jamison DO [address] [place] [address] [phone] PCP - General Family Medicine 01/26/12 Nelia Sullivan PharmD [address] [place] [address] [phone] Pharmacist Internal Medicine 08/31/23 Laurel Monterroso Teacher PrivateRunning Rigger 10/27/22 Saige Aguilar 09/26/23 documented as of this encounter
--- OUTSIDE RECORDS SUMMARY | 2024-04-04 12:04 | XMS_ITS | Encounter Summary ---
Author Organization [employer] Address [address] [facility] 7[address] [place] [address] Care Team Providers Care Power Plant Supervisor Name Role Phone ShaheenRadha Primary Care Provider [phone] Nelia Sullivan PharmD Unavailable [phone] Reason for Visit * Reason Onset Date Comments Med Refill 03/19/2024 Encounter Details Date Type Department Care Team (Late st Contact Info) Description 03/19/2024 Refill [facility] [address] [place], [place] [phone] Acacia Chakraborty RN Chronic bilateral low back pain, unspecified whether [...] with others, in a hotel, in a skilled nursing, living outside on the street, on a [...] the past 12 months, has t he electric, gas, oil or water company threatened to shut off services in your [...] AM EDT documented as of this encounter Plan of Treatment Upcoming Encounters Date Type Department Care Team (Late st Contact Info) Description 04/17/2024 9:30 AM EST Clinical Support [facility] [address] [place] [phone] Acacia Chakraborty, JOANN 04/24/2024 2:30 PM EDT Office Visit [facility] ADULT DENTAL [address] [place] [phone] Peter Peña DDS [address] [place] [address] 05/09/2024 10:30 AM EDT Medication Management [facility] [address] [place] [phone] Nelia Sullivan, KeithD [address] [place] [address] 05/28/2024 9:45 AM EDT Office Visit [facility] [address] [place] [phone] Radha Jamison DO [address] [place] [address] documented as of this encounter Goals Goal Patient Goal Type Associated Problems Recent Progress Patient-Stated? Author Record your blood pressure once per day Blood Pressure No Nelia Sullivan PharmD Blood Pressure < 140/90 Blood Pressure 130/64(2024 10:40 AM EST) No Nelia Sullivan PharmD Smoking cessation General No Nelia Sullivan PharmD Patient will adhere to medication regimen General No Nelia Sullivan PharmAdrian Hemoglobin A1c < 7 Result Component 10.6(03/05/19 [...] documented as of this encounter Care Teams Power Plant Supervisor Relationship Specialty Start Date End Date Radha Jamison DO [address] [place] [address] PCP - General Family Medicine 01/26/12 Nelia Sullivan PharmD [address] [place] [address] Pharmacist Internal Medicine 08/31/23 Luarel Monterroso Assistant Public DefenderReception Manager 10/27/22 Saige Aguilar 09/26/23 documented as of this encounter
--- OUTSIDE RECORDS SUMMARY | 2024-04-04 12:04 | XMS_ITS | Encounter Summary ---
Author Organization [employer] Address [address] [facility] [address] [place] [address] Care Team Providers Care Yarn Cleaner Name Role Phone ShaheenRadha Primary Care Provider [phone] Nelia Sullivan PharmD Unavailable [phone] Encounter Details Date Type Department Care Team (Latest Contact Info) Description 03/19/2024 Travel Social History Tobacco Use Types Packs/Day Years [...] with others, in a hotel, in a nursing home, living outside on the street, on a [...] Clinical Support [facility] [address] [place] [phone] Acacia Chakraborty, JOANN 04/24/2024 2:30 PM EDT Office Visit [facility] ADULT DENTAL [address] [place] [address] Peter Peña DDS [address] [place] [address] 05/09/2024 10:30 AM EDT Medication Management [address] [address] Nelia Sullivan PharmD [address] [place] [address] 05/28/2024 9:45 AM EDT Office Visit [address] [address] Radha Jamison DO [address] [place] [address] documented as of this encounter Goals Goal Patient Goal Type Associated Problems Recent Progress Patient-Stated? Author Record your blood pressure once per day Blood Pressure No Puia, Nelia, PharmD Blood Pressure < 140/90 Blood Pressure 130/64(2024 10:40 AM EST) No Nelia Sullivan PharmD Smoking cessation General No Nelia Sullivan PharmD Patient will adhere to medication regimen General No Nelia Sullivan PharmD Hemoglobin A1c < 7 Result Component 10.6(03/05/19 25 12:27 PM EST) No Abdias Murillo PharmD Record your blood sugar as directed Result Component No Nelia Sullivan PharmD Note: Use CGM, ensuring sensor is scanned at least once every 8 hours to capture 24H data. Check BG manually, as directed. documented as of this encounter Visit Diagnoses Not on filedocumented in this encounter Additional Health Concerns Assessment Noted Time PHQ-9 Depression Total Score: 10 024 10:24 AM EST documented as of this encounter Care Teams Yarn Cleaner Relationship Specialty Start Date End Date Radha Jamison DO [address] [place] [address] PCP - General Family Medicine 01/26/12 Nelia Sullivan PharmD [address] [place] [address] Pharmacist Internal Medicine 08/31/23 Laurel Monterroso Curtain Hemmer AutomaticSupervisor Cell Room 10/27/22 Saige Aguilar 09/26/23 documented as of this encounter
--- OUTSIDE RECORDS SUMMARY | 2024-04-04 12:04 | XMS_ITS | Encounter Summary ---
Author Organization [facility] Address [address] [facility] 7t [place] [address] Care Team Providers Care Stockroom Worker Name Role Phone ShaheenRadha Primary Care Provider [phone]- [phone] Nelia Sullivan PharmD Unavailable [phone] Reason for Visit * Reason Comments SIGNS CLEANER RV SIGNS CLEANER RV Encounter Details Date Type Department Care Team (Latest Contact Info) Description 03/19/2024 9:00 AM EST Clinical Support [facility] MEDICINE [address] [place], [place] [phone] Acacia Chakraborty RN Chronic bilateral low back pain, unspecified whether sciatica present (Primary Dx) Social History Tobacco Use Types Packs/Day Years [...] with others, in a hotel, in a residential, living outside on the street, on a [...] AM EDT documented as of this encounter Progress Notes * Acacia Chakraborty RN - 03/19/2024 9:00 AM EST S: Pt here for SIGNS CLEANER Revisit, translation provided by staff member Mac Richardson Prescribed Oxycodone 5mg Q6hr as needed. Pateint is currently on oxycodone taper. States she has been taking as prescribed, last dose taken about 2 weeks ago. She smokes about 15 cigarettes daily. Denies ETOH use, Illicitdrug use and marijuana use. Currently rates her pain an 8 and states medication is 75% effective atalleviating her pain. Current pain site is her left groin. O: SIGNS CLEANER Tier 1. Pt currently prescribed Oxycodone 5mg Q6hr as needed. SCHOOL STANDARDS COACH verified today. Rx last filled on 03/08/24. Pill count performed. Patient has 0 oxycodone remaining, anticipated she would have0. Medication is not over used by patient. Educated again on calling for her refill 3 days prior torunning out. Pt stated she tried calling and was told she couldn't get refill until she saw this play writer. Explained to her that next time she calls for refill to call me directly and I would handle her request. UTOX completed. Negative for all substances: AMP, BAR, BUP, BZO, ARMANI, FTY, MDMA, MET, MOP, MTD, OXY, PCP, TCA, THC. UTOX as expected, since pt states she hasn't taken a dose in 2 weeks. Reviewed sign/symptoms of withdrawal of patient, patient denies symptoms at this time. Reviewed the oxycodone taper schedule with patient again, she states she understands the instructions. Will send request for next oxycodone taper to covering PCP. Pt scheduled for [facility] evaluation for c/o increased left groin pain. Last PCP visit was 02/01/24. A: SIGNS CLEANER Contract Revisit: Chronic Opioid use related to pain. P: Pt to continue taking medication only as prescribed; Next SIGNS CLEANER RV appointment scheduled for 04/03/24 @ 10:30am, F/U sooner PRN. Appointment reminder given. Pt verbalized understanding and agreed to plan. documented in this encounter Plan of Treatment Upcoming Encounters Date Type Department Care Team (Late st Contact Info) Description 04/17/2024 9:30 AM EST Clinical Support [facility] MEDICINE [address] [place] [phone] Acacia Chakraborty RN 04/24/2024 2:30 PM EDT Office Visit [facility] ADULT DENTAL [address] [place] [phone] Peter Peña DDS [address] [place] [address] 05/09/2024 10:30 AM EDT Medication Management [facility] MEDICINE [address] [place] [address] Nelia Sullivan, PharmD 230 [place] [address] 05/28/2024 9:45 AM EDT Office Visit [address] [address] Radha Jamison DO [address] [place] [address] documented as of this encounter Goals Goal Patient Goal Type Associated Problems Recent Progress Patient-Stated? Author Record your blood pressure once per day Blood Pressure No Puia, Nelia, PharmD Blood Pressure < 140/90 Blood Pressure 130/64(2024 10:40 AM EST) No Puia, Nelia, PharmD Smoking cessation General No Puia, Nelia, PharmD Patient will adhere to medication regimen General No Puia, Nelia, PharmD Hemoglobin A1c < 7 Result Component 10.6(03/05/19 12:27 PM EST) No Dellogono Abdias, PharmD Record your blood sugar as directed Result Component No Puia, Nelia, PharmD Note: Use CGM, ensuring sensor is scanned at least once every 8 hours to capture 24H data. Check BG manually, as directed. documented as of this encounter Procedures Procedure Name Priority Date/Time Associated Diagnosis Comments POCT GUERO-14 URINE DRUG SCREEN Routine 03/19/2024 9:14 AM EST Chronic bilateral low back pain, unspecified whether sciatica present documented in this encounter Results * POCT GUERO-14 Urine Drug Screen (03/19/2024 9:14 AM EST) Urine Urine specimen obtained by clean catch procedure / Unknown 03/19/2024 9:14 AM EST Acacia Perera RN - 03/19/2024 9:14 AM EST UTOX cup Lot#[id number] Exp. 11/07/25 Internal Pass Control Negative for all substances Radha Jamison DO POINT OF CARE TEST ENTER/BHARGAVI T ORDERABLES Final Result documented in this encounter Visit Diagnoses Diagnosis Chronic bilateral low back pain, unspecified whether sciatica present- Primary documented in this encounter Additional Health Concerns Assessment Noted Time PHQ-9 Depression Total Score: 10 024 10:24 AM EST documented as of this encounter Care Teams Stockroom Worker Relationship Specialty Start Date End Date Radha Jamison DO [address] [place] [address] [phone] PCP - General Family Medicine 01/26/12 Nelia Sullivan, KeithD [address] [place] [address] [place] [phone] Pharmacist Internal Medicine 08/31/23 Laurel Monterroso Wire Frame DipperLead Java Software Engineer 10/27/22 Saige Aguilar 09/26/23 documented as of this encounter
--- OUTSIDE RECORDS SUMMARY | 2024-04-04 12:04 | XMS_ITS | Encounter Summary ---
Author Organization [employer] Address 75 [facility] 7t [place] [address] Care Team Providers Care Orthopedic Surgeon Name Role Phone Radha Jamison DO Primary Care Provider [phone] Nelia Sullivan PharmD Unavailable [phone] Reason for Visit * Reason Onset Date Comments Med Refill 03/06/2024 Encounter Details Date Type Department Care Team (Late st Contact Info) Description 03/06/2024 Telephone [facility] MEDICINE [address] [place], [place] [phone] Radha Jamison DO 230 [place], [place] [phone] Med Refill Social History Tobacco Use Types Packs/Day Years [...] with others, in a hotel, in a fdc, living outside on the street, on a [...] the past 12 months, has t he [employer], gas, oil or water [employer] threatened to shut off services in your [...] encounter Miscellaneous Notes * Telephone Encounter - Erma Jj - 03/06/2024 11:21 AM EST TC from pt requesting medication refill. Medications needing refill : oxyCODONE (Roxicodone) 5 MG immediate release tablet To be sent to: [facility] pharmacy documented in this encounter Plan of Treatment Upcoming Encounters Date Type Department Care Team (Late st Contact Info) Description 04/17/2024 9:30 AM EST Clinical Support [facility] MEDICINE [address] [place] [address] Acacia Chakraborty, RN 04/24/2024 2:30 PM EDT Office Visit [facility] ADULT DENTAL [address] [place] [address] Peter Peña DDS [address] [place] [address] 05/09/2024 10:30 AM EDT Medication Management [facility] MEDICINE [address] [place] [address] Nelia Sullivan PharmD [address] [place] [phone] 05/28/2024 9:45 AM EDT Office Visit [facility] MEDICINE [address] [place] [address] [phone] Radha Jamison DO [address] [place] [address] documented as of this encounter Goals Goal Patient Goal Type Associated Problems Recent Progress Patient-Stated? Author Record your blood pressure once per day Blood Pressure No Nelia Sullivan PharmD Blood Pressure < 140/90 Blood Pressure 130/64(2024 10:40 AM EST) No Nelia Sullivan PharmD Smoking cessation General No Nelia Sullivan PharmAdrian Patient will adhere to medication regimen General [...] documented as of this encounter Care Teams Orthopedic Surgeon Relationship Specialty Start Date End Date Radha Jamison DO [address] [place] [address] [phone] PCP - General Family Medicine 01/26/12 Nelia Sullivan PharmD [address] [place] [phone] Pharmacist Internal Medicine 08/31/23 Laurel Monterroso Botany ProfessorAircraft Systems Repairer 10/27/22 Saige Aguilar 09/26/23 documented as of this encounter
--- OUTSIDE RECORDS SUMMARY | 2024-04-04 12:04 | XMS_ITS | Encounter Summary ---
Author Organization [employer] [facility] Address [address] [facility] 7t [place] [address] Care Team Providers Care Shore Working Supervisor Name Role Phone ShaheenRadha Primary Care Provider [phone] Nelia Sullivan PharmD Unavailable [phone] Reason for Visit * Reason Comments ELECTROTYPER RV ELECTROTYPER RV Encounter Details Date Type Department Care Team (Latest Contact Info) Description 03/05/2024 10:00 AM EST Clinical Support [facility] MEDICINE [address] [place], [place] [phone] Acacia Chakraborty RN Spinal stenosis of lumbar region, unspecified whether neurogenic claudication present (Primary Dx) Social History Tobacco Use [...] with others, in a hotel, in [place] [facility], living outside on the street, on a [...] Progress Notes * Acacia Chakraborty RN - 03/05/2024 10:00 AM EST S: Pt here for ELECTROTYPER Revisit, translation provided by rn medical surgical Roney. Prescribed Oxycodone 5mg 5X's a day as needed. States she has been taking as prescribed, last dose taken was last night. She smokes about 15 cigarettes daily. Denies ETOH use, Illicit drug use and marijuana use. Currently rates her pain an 8 and states medication is 75% effective at alleviating her pain. Current pain sites are her back, legs and right knee. Patient did not return for pill count & repeat UTOX on 02/20/24. Patient was a NCNS for ELECTROTYPER RV 02/22/24. O: ELECTROTYPER Tier 1. Pt currently prescribed Oxycodone 5mg 5X's a day as needed. WAREHOUSE LOGISTICS MANAGER verified today. Rx last filled on 02/06/24. On 02/20/24 ELECTROTYPER visit, patient had #8 remaining oxycodone from her 01/31/24 bottle. She should have started her 02/06/24 bottle on 02/22/24. Pill count performed. Patient has 6 oxycodone remaining, anticipated she would have 84. Asked where the remainder of her oxycodone was, shesaid maybe they are still in her drawer. Asked her why she didn't bring all of them to this appointment as she knows we need to count them. She said because they are mixed in with other pills that are also loose in her drawer. UTOX completed. Positive for OXY. Negative for AMP, BAR, BUP, BZO, ARMANI, FTY, MDMA, MET, MOP, MTD, PCP, TCA, THC. UTOX as expected. {T asking if she will be getting her refill today. Explained her refill date wouldn't be today, but I would have to speak with her PCP about how she would like to handle this. Pt stated if she doesn't get her pain pills from here she will just go to the ER. Will discuss with PCP and call patient afterwards. Last PCP visit was 02/01/24. A: ELECTROTYPER Contract Revisit: Chronic Opioid use related to pain. P: Pt to continue taking medication only as prescribed; Next ELECTROTYPER RV appointment scheduled for 03/19/24 @ 9am, F/U sooner PRN. Appointment reminder given. Pt verbalized understanding and agreed to plan. documented in this encounter Plan of Treatment Upcoming Encounters Date Type Department Care Team (Late st Contact Info) Description 04/17/2024 9:30 AM EST Clinical Support [address] [address] Acacia Chakraborty RN 04/24/2024 2:30 PM EDT Office Visit [facility] ADULT DENTAL [address] [place] [phone] Peter Peña DDS [address] [place] [address] 05/09/2024 10:30 AM EDT Medication Management [address] [address] Nelia Sullivan, PharmD [address] [place] [address] 05/28/2024 9:45 AM EDT Office Visit [facility] MEDICINE [address] [place] [address] Radha Jamison DO [address] [place] [address] documented as of this encounter Goals Goal [...] Result Component 10.6(03/05/19 12:27 PM EST) No Dellogono, Abdias, PharmD Record your blood sugar as directed Result Component No Puia, Nelia, PharmD Note: Use CGM, ensuring sensor is scanned at least once every 8 hours to capture 24H data. Check BG manually, as directed. documented as of this encounter Procedures Procedure Name Priority Date/Time Associated Diagnosis Comments POCT GUERO-14 URINE DRUG SCREEN Routine 03/05/2024 10:32 AM EST Spinal stenosis of lumbar region, unspecified whether neurogenic claudication present documented in this encounter Results * POCT GUERO-14 Urine Drug Screen (03/05/2024 10:32 AM EST) Oxycodone Screen, Urine Positive Urine Urine specimen obtained by clean catch procedure / Unknown 03/05/2024 10:32 AM EST Acacia Perera RN - 03/05/2024 10:32 AM EST UTOX cup Lot#[id number] Exp. 11/07/25 Internal Pass Control Radha Jamison DO POINT OF CARE TEST ENTER/BHARGAVI T ORDERABLES Final Result documented in this encounter Visit Diagnoses Diagnosis Spinal stenosis of lumbar region, unspecified whether neurogenic claudication present- Primary documented in this encounter Additional Health Concerns Assessment Noted Time PHQ-9 Depression Total Score: 10 024 10:24 AM EST documented as of this encounter Care Teams Shore Working Supervisor Relationship Specialty Start Date End Date Radha Jamison DO [address] [place] [address] PCP - General Family Medicine 01/26/12 Nelia Sullivan PharmD [address] [place] [address] Pharmacist Internal Medicine 08/31/23 Laurel Monterroso Machine Clothing ManGas And Oil Servicer 10/27/22 Saige Aguilar 09/26/23 documented as of this encounter
--- OUTSIDE RECORDS SUMMARY | 2024-04-04 12:04 | XMS_ITS | Encounter Summary ---
Author Organization [email or web address] Address [address] [facility] 7t [place] [address] Care Team Providers Care Credit Assistant Name Role Phone Radha Jamison DO Primary Care Provider [phone] Nelia Sullivan PharmD Unavailable [phone] Reason for Visit * Reason Onset Date Comments Lab Orders 02/29/2024 Encounter Details Date Type Department Care Team ([facility] st Contact Info) Description 02/29/2024 Telephone [facility] MEDICINE [address] [place], [place] [phone] Radha Jamison DO [address] [place], [place] [phone] Lab Orders Social History Tobacco Use Types Packs/Day Years [...] with others, in a hotel, in a half-way, living outside on the street, on a [...] the past 12 months, has t he [employer], [employer], oil or water [employer] threatened to shut off services in your [...] encounter Miscellaneous Notes * Telephone Encounter - Carli Myers RN - 03/05/2024 12:50 PM EST TC returned to Che [phone] to inform of updated A1c being 10.6. Che advised patient is scheduled to see Nelia on . Che to f/u PRN. * Telephone Encounter - Carli Myers RN - 02/29/2024 11:49 AM EST TC returned to Che [phone] in regards to below message. Che reports she the patient was supposed to have surgery however they had to push it back d/t her A1c level. Che is wondering if A1c has been rechecked. Che advised last A1c was on 02/01/24 and it was 10.1 and A1c's are usually checked q3 months. Che advised patient is in [facility] for her diabetes and was last seen on 02/02/24 and was suppose to f/u in 2 weeks however patient no showed. Che informed patient has been scheduled for CD[facility] on 03/05/24. Che reports she will return call to [facility] >03/05/24 to see if we have an updated A1c. Sending to Nelia as FYI to consider re-checking A1c at appointment on 03/05/24. * Telephone Encounter - Erma Jj - 02/29/2024 11:18 AM EST Tc from [facility] with [facility] requesting a lab order for pt to get done A1C as previous one was 10.1, when order gets created she will like a callback [phone] documented in this encounter Plan of Treatment Upcoming Encounters Date Type Department Care Team (Late st Contact Info) Description 04/17/2024 9:30 AM EST Clinical Support [facility] MEDICINE [address] [place] [phone] Acacia Chakraborty, JOANN 04/24/2024 2:30 PM EDT Office Visit [facility] ADULT DENTAL [address] [place] [address] Peter Peña DDS [address] [place] [address] 05/09/2024 10:30 AM EDT Medication Management [facility] MEDICINE [address] [place] [address] Nelia Sullivan, PharmD [address] [place] [address] 05/28/2024 9:45 AM EDT Office Visit [address] [address] Radha Jmaison DO [address] [place] [address] documented as of this encounter Goals Goal Patient Goal Type Associated Problems Recent Progress Patient-Stated? Author Record your blood pressure once per day Blood Pressure No Nelia Sullivan, PharmD Blood Pressure < 140/90 Blood Pressure 130/64(2024 10:40 AM EST) No Nelia Sullivan, PharmD Smoking cessation General No Nelia Sullivan, PharmD Patient will adhere to medication regimen General No Nelia Sullivan, PharmD Hemoglobin A1c < 7 Result Component [...] documented as of this encounter Care Teams Credit Assistant Relationship Specialty Start Date End Date Radha Jamison DO [address] [place] [address] PCP - General Family Medicine 01/26/12 Nelia Sullivan PharmD [address] [place] [address] Pharmacist Internal Medicine 08/31/23 Laurel Monterroso Slicer Machine OperatorExtraction Operator 10/27/22 Saige Aguilar 09/26/23 documented as of this encounter
--- OUTSIDE RECORDS SUMMARY | 2024-04-04 12:04 | XMS_ITS | Encounter Summary ---
Author Organization [employer] Address [address] [facility] 7t [place] [address] Care Team Providers Care Model Maker Plaster Name Role Phone Radha Jamison DO Primary Care Provider [phone] Nelia Sullivan PharmD Unavailable [phone] Reason for Visit * Reason Onset Date Comments [facility] expect 03/19/2024 Encounter Details Date Type Department Care Team (Late st Contact Info) Description 03/19/2024 Telephone [facility] MEDICINE [address] [place], [place] [phone] Radha Jamison DO [address] [place] [address] [facility] expect Social History Tobacco Use Types Packs/Day Years [...] with others, in a hotel, in a [facility], living outside on the street, on a [...] the past 12 months, has t he [employer], gas, oil or water [employer] threatened to shut off services in your [...] Telephone Encounter - Carli Myers RN - 03/20/2024 9:42 AM EST TC placed to patient [phone] to status check in regards to below message however received automated recording We're sorry the number you have dialed has calling restrictions that have preventedthe completion of your call . TC placed to [phone] via [employer] (Baron #[id number]) to status check (per review, patient did not go to [facility] or [facility]). Patient reports she did not go to the ED tomi use her son was not able to take her d/t having to work. Patient reports she will be going to [facility] ED today around 2pm when her daughter arrives from work. Patient advised to call [facility] once she is discharged from the ED for a f/u appointment. Patient verbalized understanding. Patient to f/u PRN. * Telephone Encounter - Diana Presley RN - 03/19/2024 11:25 AM EST TC placed to [facility] for a expect by private car. Patient seen in walk in center with 5 cm mass lower left abdomen above groin after lifting heavy objects 2 days ago. Non-reducible left inguinal hernia need to rule out incarcerated hernia verbal report given. Will send message to red team nurses to follow up on ED. documented in this encounter Plan of Treatment Upcoming Encounters Date Type Department Care Team (Late st Contact Info) Description 04/17/2024 9:30 AM EST Clinical Support [facility] MEDICINE [address] [place] [phone] Acacia Chakraborty RN 04/24/2024 2:30 PM EDT Office Visit [facility] ADULT DENTAL [address] [place] [phone] Peter Peña DDS [address] [place] [address] 05/09/2024 10:30 AM EDT Medication Management [facility] MEDICINE [address] [place] [phone] Puia, Nelia, PharmD [address] [place] [address] 05/28/2024 9:45 AM EDT Office Visit [facility] MEDICINE [address] [place] [phone] Radha Jamison DO [address] [place] [address] documented as of this encounter Goals Goal [...] documented as of this encounter Care Teams Model Maker Plaster Relationship Specialty Start Date End Date Radha Jamison DO [address] [place] [address] PCP - General Family Medicine 01/26/12 Nelia Sullivan PharmD [address] [place] [address] Pharmacist Internal Medicine 08/31/23 Laurel Monetrroso Inspector PlatingFirst Assistant 10/27/22 Saige Aguilar 09/26/23 documented as of this encounter
--- OUTSIDE RECORDS SUMMARY | 2024-04-04 12:04 | XMS_ITS | Encounter Summary ---
Author Organization [employer] Address 75 [facility] 7t [place] [address] Care Team Providers Care Lap Winding Machine Operator Name Role Phone ShaheenRadha Primary Care Provider [phone] Nelia Sullivan PharmD Unavailable [phone] Encounter Details Date Type Department Care Team (Latest Contact Info) Description 03/05/2024 Travel Social History Tobacco Use Types Packs/Day [...] Description 04/17/2024 9:30 AM EST Clinical Support [facility] MEDICINE [address] [place] [phone] Acacia Chakraborty, JOANN 04/24/2024 2:30 PM EDT Office Visit [facility] ADULT DENTAL [address] [place] [address] Peter Peña DDS [address] [place] [address] 05/09/2024 10:30 AM EDT Medication Management [address] [address] Nelia Sullivan PharmD [address] [place] [address] 05/28/2024 9:45 AM EDT Office Visit [address] [address] Radha Jamison DO [address] [place] [address] documented as of this encounter Goals Goal [...] documented as of this encounter Care Teams Lap Winding Machine Operator Relationship Specialty Start Date End Date Radha Jamison DO [address] [place] [address] PCP - General Family Medicine 01/26/12 Nelia Sullivan PharmD [address] [place] [address] Pharmacist Internal Medicine 08/31/23 Laurel Monterroso Radio Tower TechnicianStitching Machine Feeder Or Offbearer 10/27/22 Saige Aguilar 09/26/23 documented as of this encounter
--- OUTSIDE RECORDS SUMMARY | 2024-04-04 12:04 | XMS_ITS | Encounter Summary ---
Author Organization [employer] Address [address] [facility] 7t [place] [address] Care Team Providers Care Beef Lugger Name Role Phone Radha Jamison DO Primary Care Provider +1- [phone] Nelia Sullivan PharmD Unavailable [phone] Reason for Visit * Reason Comments Med Refill Encounter Details Date Type Department Care Team ([facility] Contact Info) Description 03/05/2024 Telephone [facility] MEDICINE [address] [place], [place] [phone] Radha Jamison DO [address] [place] [address] Med Refill Social History Tobacco Use Types [...] with others, in a hotel, in a penitentiary, living outside on the street, on a [...] Description 04/17/2024 9:30 AM EST Clinical Support [facility] MEDICINE [address] [place] [address] Acacia Chakraborty, RN 04/24/2024 2:30 PM EDT Office Visit [facility] ADULT DENTAL [address] [place] [address] Peter Peña DDS [address] [place] [address] 05/09/2024 10:30 AM EDT Medication Management [facility] MEDICINE [address] [place] [address] Nelia Sullivan PharmD [address] [place] [address] 05/28/2024 9:45 AM EDT Office Visit [facility] MEDICINE [address] [place] [address] Radha Jamison DO [address] [place] [address] documented as of this encounter Goals Goal Patient Goal Type Associated Problems Recent Progress Patient-Stated? Author Record your blood pressure once per day Blood Pressure No Nelia Sullivan, PharmD Blood Pressure < 140/90 Blood Pressure 130/64(2024 10:40 AM EST) No Nelia Sullivan PharmD Smoking cessation General No Nelia Sullivan, [...] documented as of this encounter Care Teams Beef Lugger Relationship Specialty Start Date End Date Radha Jamison DO [address] [place] [address] PCP - General Family Medicine 01/26/12 Nelia Sullivan, PharmD [address] [place] [address] Pharmacist Internal Medicine 08/31/23 Laurel Monterroso Crude Oil DriverNet Developer Architect 10/27/22 Saige Aguilar 09/26/23 documented as of this encounter
--- OUTSIDE RECORDS SUMMARY | 2024-04-04 12:04 | XMS_ITS | Encounter Summary ---
Author Organization [employer] Address [address] [facility] 7t [place] [address] Care Team Providers Care Tacker Off Name Role Phone Radha Jamison DO Primary Care Provider +1- [phone] Nelia Sullivan PharmD Unavailable [phone] Reason for Visit * Reason Comments Med Refill Encounter Details Date Type Department Care Team ([facility] Contact Info) Description 12/28/2023 Refill [facility] MEDICINE 230 [place], [place] [phone] Radha Jamison DO 230 [place] [address] Chronic bilateral low back pain, unspecified whether [...] with others, in a hotel, in a group home, living outside on the street, on [...] the past 12 months, has t he [employer], gas, oil or water company threatened to [...] Description 04/17/2024 9:30 AM EST Clinical Support [address] [address] Acacia Chakraborty RN 04/24/2024 2:30 PM EDT Office Visit [facility] [place] ADULT DENTAL [address] [place] [address] Peter Peña DDS [address] [place] [address] 05/09/2024 10:30 AM EDT Medication Management [address] [address] Nelia Sullivan, PharmD [address] [place] [address] 05/28/2024 9:45 AM EDT Office Visit [address] [address] Radha Jamison DO 230 [place] [address] documented as of this encounter Goals Goal [...] blood sugar as directed Result Component No Felice Sullivanyssa, PharmD Note: Use CGM, ensuring sensor is [...] documented as of this encounter Care Teams Tacker Off Relationship Specialty Start Date End Date Lisa JamisonferDO 230 [place] [address] PCP - General Family Medicine 01/26/12 Nelia Sullivan, PharmD [address] [place] [address] Pharmacist Internal Medicine 08/31/23 Laurel Monterroso Appointment SetterMeat Cooler 10/27/22 Saige Aguilar 09/26/23 documented as of this encounter
--- OUTSIDE RECORDS SUMMARY | 2024-04-04 12:04 | XMS_ITS | Encounter Summary ---
Author Organization [employer] Address [address] [facility] 7t [place] [address] Care Team Providers Care Carburizer Name Role Phone Radha Jamison DO Primary Care Provider +1- [phone] Nelia Sullivan PharmD Unavailable [phone] Reason for Visit * Reason Comments Med Refill Encounter Details Date Type Department Care Team ([facility] st Contact Info) Description 03/19/2024 Refill [facility] MEDICINE 230 [place], [place] [phone] Radha Jamison DO 230 [place] [address] Chronic bilateral low back pain, unspecified whether [...] with others, in a hotel, in a detention, living outside on the street, on a [...] the past 12 months, has t he [employer], gas, oil or water company threatened to [...] Description 04/17/2024 9:30 AM EST Clinical Support [address] [address] Acacia Chakraborty RN 04/24/2024 2:30 PM EDT Office Visit [facility] ADULT DENTAL [address] [place] [address] Peter Peña DDS [address] [place] [address] 05/09/2024 10:30 AM EDT Medication Management [address] [address] Nelia Sullivan, PharmD [address] [place] [address] 05/28/2024 9:45 AM EDT Office Visit [address] [address] Radha Jamison DO 230 [place] [address] documented as of this encounter Goals Goal [...] documented as of this encounter Care Teams Carburizer Relationship Specialty Start Date End Date Lisa JamisonferDO 230 [place] [address] PCP - General Family Medicine 01/26/12 Nelia Sullivan, PharmD [address] [place] [address] Pharmacist Internal Medicine 08/31/23 Laurel Monterroso Pulverizer OperatorJob Specification Writer 10/27/22 Saige Aguilar 09/26/23 documented as of this encounter
--- OUTSIDE RECORDS SUMMARY | 2024-04-04 12:04 | XMS_ITS | Encounter Summary ---
Author Organization [employer] Address 75 [facility] 7t [place] [address] Care Team Providers Care Slip Injector And Applicator Name Role Phone ShaheenRadha Primary Care Provider [phone]- [phone] Nelia Sullivan PharmD Unavailable [phone] Reason for Visit * Reason Comments Abdominal Pain Encounter Details Date Type Department Care Team ([facility] Contact Info) Description 03/19/2024 10:00 AM EST Office Visit [facility] [address] [place] [address] Anna Jenkins MD [address] [place] [address] Left lower quadrant abdominal pain (Primary Dx) Social History Tobacco Use Types [...] with others, in a hotel, in a senior care, living outside on the street, on a [...] AM EDT documented as of this encounter Last Filed Vital Signs Vital Sign Reading Time Taken Comments Blood Pressure 136/68 03/19/2024 9:57 AM EST Pulse 77 03/19/2024 9:57 AM EST Temperature 36.8 ??C (98.3 ??F) 03/19/2024 9:57 AM ES T Respiratory Rate 16 03/19/2024 9:57 AM EST Oxygen Saturation 97% 03/19/2024 9:57 AM EST Inhaled Oxygen Concentration - - Weight 64.4 kg (142 lb) 03/19/2024 9:57 AM EST Height - - Body Mass Index 27.73 02/01/2024 9:02 AM EST documented in this encounter Progress Notes * Anna Jenkins MD - 03/19/2024 10:00 AM EST Subjective Patient ID: Rocío Schmid is a 63 y.o. adult with past medical history of CAD, type 2 diabetes,htn, asthma, tobacco dependance who presents to walk in clinic for left lower extremity pain. PT repots two days ago when was moving a heavy piece of furniture when she felt pain in her let groin that radiated as cramps down her left quadriceps area. She pain comes and goes and is worse when she stands. She has difficulty moving due to the pain. Review of Systems Constitutional: Negative for fever. Gastrointestinal: Positive for abdominal pain. Negative for constipation and diarrhea. Genitourinary: Negative for difficulty urinating. Objective Visit Vitals BP 136/68 (BP Location: Left arm, Patient Position: Sitting, BP Cuff Size: Adult) Pulse 77 Temp 98.3 ??F (36.8 ??C) (Temporal) Resp 16 Body mass index is 27.73 kg/m??. Physical Exam Constitutional: Comments: Difficulty walking due to pain. Difficulty getting up on to table. Abdominal: Comments: Comfortable when llying down but tender left lower quadrant. When standing, tender firm 5cm mass in left lower abdomen just above the groin. Problem List Items Addressed This Visit Left lower quadrant abdominal pain - Primary Exam concerning for non-reducible left inguinal hernia. Need to r/o incarceration. No evidence of bowel obstruction. Vitals stable. Pt agrees to go to ER for further evaluation. documented in this encounter Miscellaneous Notes * Assessment & Plan Note - Anna Jenkins MD - 03/19/2024 10:31 AM EST Associated Problem(s): Left lower quadrant abdominal pain Exam concerning for non-reducible left inguinal hernia. Need to r/o incarceration. No evidence of bowel obstruction. Vitals stable. Pt agrees to go to ER for further evaluation. documented in this encounter Plan of Treatment Upcoming Encounters Date Type Department Care Team (Late st Contact Info) Description 04/17/2024 9:30 AM EST Clinical Support [facility] MEDICINE [address] [place] [address] Acacia Chakraborty RN 04/24/2024 2:30 PM EDT Office Visit [facility] ADULT DENTAL [address] [place] [address] Peter Peña DDS [address] [place] [address] 05/09/2024 10:30 AM EDT Medication Management [address] [address] Puia, Nelia, PharmD [address] [place] [address] 05/28/2024 9:45 AM EDT Office Visit [address] [address] Radha Jamison DO [address] [place] [address] documented as of this encounter Goals Goal [...] Component 10.6(03/05/19 25 12:27 PM EST) No DellogRod cottois, PharmD Record your blood sugar as directed Result Component No Puia, Nelia, PharmD Note: Use CGM, ensuring sensor is scanned at least once every 8 hours to capture 24H data. Check BG manually, as directed. documented as of this encounter Visit Diagnoses Diagnosis Left lower quadrant abdominal pain- Primary documented in this encounter Additional Health Concerns Assessment Noted Time PHQ-9 Depression Total Score: 10 024 10:24 AM EST documented as of this encounter Care Teams Slip Injector And Applicator Relationship Specialty Start Date End Date Radha Jamison DO [address] [place] [address] [phone] PCP - General Family Medicine 01/26/12 Puia, Nelia, PharmD [address] [place] [address] Pharmacist Internal Medicine 08/31/23 Laurel Monterroso Photographic Reproduction TechnicianSupervisor Dyer 10/27/22 Saieg Aguilar 09/26/23 documented as of this encounter
--- OUTSIDE RECORDS SUMMARY | 2024-04-04 12:04 | XMS_ITS | Encounter Summary ---
Author Organization [employer] Address [address] [facility] 7t [place] [address] Care Team Providers Care Screen Printing Press Operator Name Role Phone ShaheenRadha Primary Care Provider [phone]- [phone] Nelia Sullivan PharmD Unavailable [phone] Reason for Visit * Reason Onset Date Comments Oxy count discrepancy 03/05/2024 Encounter Details Date Type Department Care Team (Late st Contact Info) Description 03/05/2024 Telephone [facility] MEDICINE 230 [place], [place] [phone] Acacia Chakraborty RN Oxy count discrepancy Social History Tobacco Use Types Packs/Day Years [...] encounter Miscellaneous Notes * Telephone Encounter - Radha Jamison DO - 03/24/2024 9:25 PM EST Late entry: Previously reviewed and d/w WORKERS' COMPENSATION MAGISTRATE RN. RN advised given pt's multiple inaccurate pill counts and negative utox and noncompliance with narcotic agreement will terminate her agreement and taper pt off of the oxycodone. * Telephone Encounter - Acacia Chakraborty RN - 03/05/2024 10:41 AM EST Pt had WORKERS' COMPENSATION MAGISTRATE RV today She had 6 Oxycodone remaining, anticipated 84. On 02/20/24 WORKERS' COMPENSATION MAGISTRATE visit, patient had #8 pills remaining oxycodone from her 01/31/24 bottle. UTOX samplewas cold, unable to register temperature. Pt was supposed to come back that afternoon to repeat herurine and with her 02/06/24 oxycodone bottle. She never came. She was [facility] for her appt 02/22/24. She should have started her 02/06/24 bottle on 02/22/24. Asked where the remainder of her oxycodone was, she said maybe they are still in her drawer. Asked her why she didn't bring all of them to this appointment as she knows we need to count them. She said because they are mixed in with other pills that are also loose in her drawer. UTOX today Positive for OXY Pt asking if she will be getting her refill today. Explained her refill date wouldn't be today, butI would have to speak with her PCP about how she would like to handle this. Pt stated if she doesn't get her pain pills from here she will just go to the ER. 01/29/24 - UTOX Neg OXY / Conf. Neg OXY, Pill count discrepancy 0/9. 05/30/23 - Oxy count discrepancy 58/69 03/14/23 - Oxy count discrepancy 15/12/06/22 - OXY count discrepancy 71/104 documented in this encounter Plan of Treatment Upcoming Encounters Date Type Department Care Team (Late st Contact Info) Description 04/17/2024 9:30 AM EST Clinical Support [address] [address] Acacia Chakraborty RN 04/24/2024 2:30 PM EDT Office Visit [facility] ADULT DENTAL [address] [place] [address] Peter Peña DDS 230 [place] [address] 05/09/2024 10:30 AM EDT Medication Management [facility] MEDICINE [address] [place] [address] Nelia Sullivan, PharmD 230 [place] [address] 05/28/2024 9:45 AM EDT Office Visit [address] [address] Radha Jamison DO 230 [place] [address] documented as of this encounter Goals Goal Patient Goal Type Associated Problems Recent Progress Patient-Stated? Author Record your blood pressure once per day Blood Pressure No Nelia Sullivan, PharmD Blood Pressure < 140/90 Blood Pressure 130/64(2024 10:40 AM EST) No Yazmin Sullivansa, PharmD Smoking cessation General No AnaiiaFeliceNelia, PharmD Patient will adhere to medication regimen General No Yazmin Sullivansa, PharmD Hemoglobin A1c < 7 Result Component 10.6(03/05/19 25 12:27 PM EST) No Abdias Murillo, PharmD Record your blood sugar as directed Result Component No Yazmin Sullivansa, PharmD Note: Use CGM, ensuring sensor is scanned at least once every 8 hours to capture 24H data. Check BG manually, as directed. documented as of this encounter Visit Diagnoses Not on filedocumented in this encounter Additional Health Concerns Assessment Noted Time PHQ-9 Depression Total Score: 10 024 10:24 AM EST documented as of this encounter Care Teams Screen Printing Press Operator Relationship Specialty Start Date End Date Radha Jamison DO 230 [place] [address] PCP - General Family Medicine 01/26/12 Nelia Sullivan, PharmD 230 [place] [address] Pharmacist Internal Medicine 08/31/23 Laurel Monterroso Code Enforcement OfficerPet Care Attendant 10/27/22 Saige Aguilar 09/26/23 documented as of this encounter
--- OUTSIDE RECORDS SUMMARY | 2024-04-04 12:05 | XMS_ITS | Encounter Summary ---
Author Organization [employer] Address 75 [facility] 7t [place] [address] Care Team Providers Care Diversified Crops Farmworker Name Role Phone Radha Jamison DO Primary Care Provider [phone]- [phone] Nelia Sullivan PharmD Unavailable [phone] Reason for Visit * Reason Comments Med Refill Encounter Details Date Type Department Care Team ([facility] Contact Info) Description 01/06/2024 Refill [facility] MEDICINE 230 [place], [place] [phone] Radha Jamison DO 230 [place] [address] Depression, unspecified depression type; Essential (primary) hypertension Social History Tobacco Use Types Packs/Day Years [...] the past 12 months, has t he [employer], gas, oil or water company threatened to [...] Description 04/17/2024 9:30 AM EST Clinical Support [address] [address] Acacia Chakraborty RN 04/24/2024 2:30 PM EDT Office Visit [facility] ADULT DENTAL [address] [place] [address] Peter Peña DDS [address] [place] [address] 05/09/2024 10:30 AM EDT Medication Management [address] [address] Nelia Sullivan, PharmD [address] [place] [address] 05/28/2024 9:45 AM EDT Office Visit [address] [address] Radha Jamison DO [address] [place] [address] documented as of this encounter Goals Goal Patient Goal Type Associated Problems Recent Progress Patient-Stated? Author Record your blood pressure once per day Blood Pressure No Yazmin Sullivansa, PharmD Blood Pressure < 140/90 Blood Pressure 130/64(2024 10:40 AM EST) No Yazmin Sullivansa, PharmD Smoking cessation General No Puia, Nelia, [...] as of this encounter Visit Diagnoses Diagnosis Depression, unspecified depression type Essential (primary) hypertension Unspecified essential hypertension documented in this encounter Additional Health Concerns Assessment Noted Time PHQ-9 Depression Total Score: 10 024 10:24 AM EST documented as of this encounter Care Teams Diversified Crops Farmworker Relationship Specialty Start Date End Date Lisa JamisonferDO [address] [place] [address] PCP - General Family Medicine 01/26/12 Nelia Sullivan, PharmD [address] [place] [address] Pharmacist Internal Medicine 08/31/23 Laurel Monterroso Scrap Drop Crane OperatorSwine Nutritionist 10/27/22 Saige Aguilar 09/26/23 documented as of this encounter
--- OUTSIDE RECORDS SUMMARY | 2024-04-04 12:05 | XMS_ITS | Encounter Summary ---
Author Organization [employer] Address 75 [facility] 7t [place] [address] Care Team Providers Care Gold Plater Name Role Phone ShaheenRadha Primary Care Provider [phone]- [phone] Nelia Sullivan PharmD Unavailable [phone] Reason for Visit * Reason Onset Date Comments Med Refill 04/03/2024 Encounter Details Date Type Department Care Team (Late st Contact Info) Description 04/03/2024 Refill [facility] MEDICINE 230 [place], [place] [phone] Acacia Chakraborty RN Chronic bilateral low back [...] with others, in a hotel, in a retirement, living outside on the street, on a [...] Description 04/17/2024 9:30 AM EST Clinical Support [facility] MEDICINE [address] [place] [address] Acacia Chakraborty, JOANN 04/24/2024 2:30 PM EDT Office Visit [facility] ADULT DENTAL [address] [place] [address] Peter Peña DDS 230 [place] [address] 05/09/2024 10:30 AM EDT Medication Management [facility] MEDICINE [address] [place] [address] Nelia Sullivan, KeithD 230 [place] [address] 05/28/2024 9:45 AM EDT Office Visit [facility] MEDICINE [address] [place] [address] Radha Jamison DO 230 [place] [address] documented as of this encounter Goals Goal [...] documented as of this encounter Care Teams Gold Plater Relationship Specialty Start Date End Date Radha Jamison DO 230 [place] [address] PCP - General Family Medicine 01/26/12 Nelia Sullivan PharmD 230 [place] [address] Pharmacist Internal Medicine 08/31/23 Laurel Monterroso Order Make Up ClerkScrubber Machine Tender 10/27/22 Saige Aguilar 09/26/23 documented as of this encounter
--- OUTSIDE RECORDS SUMMARY | 2024-04-04 12:05 | XMS_ITS | Encounter Summary ---
Author Organization [employer] Address 75 [facility] 7t [place] [address] Care Team Providers Care Heavy Duty Custodian Name Role Phone Radha Jamison DO Primary Care Provider [phone]- [phone] Nelia Sullivan PharmD Unavailable [phone] Reason for Visit * Reason Onset Date Comments Returning Call 01/17/2024 Hospital Follow-up 01/17/2024 Encounter Details Date Type Department Care Team ([facility] st Contact Info) Description 01/17/2024 Telephone [facility] MEDICINE [address] [place] [address] Radha Jamison DO 230 [place] [address] Returning Call ; Hospital Follow-up Social History Tobacco Use Types Packs/Day Years [...] with others, in a hotel, in a prison, living outside on the street, on a [...] t he electric, gas, oil or water [employer] threatened to shut off services in your [...] encounter Miscellaneous Notes * Telephone Encounter - Josue Reynolds - 01/17/2024 11:48 AM EST Tc from pt returning call regarding message below. CC Kat Eli placed outbound call to patient for HDF outreach. CC placing call to offer patient with an HDF appointment with provider. No answer at this time. documented in this encounter Plan of Treatment Upcoming Encounters Date Type Department Care Team (Late st Contact Info) Description 04/17/2024 9:30 AM EST Clinical Support [facility] MEDICINE [address] [place] [address] Acacia Chakraborty, RN 04/24/2024 2:30 PM EDT Office Visit [facility] ADULT DENTAL [address] [place] [address] Peter Peña DDS [address] [place] [address] 05/09/2024 10:30 AM EDT Medication Management [address] [phone] Nelia Sullivan PharmD [address] [place] [address] 05/28/2024 9:45 AM EDT Office Visit [facility] MEDICINE [address] [place] [address] Radha Jamison DO [address] [place], [place] documented as of this encounter Goals Goal Patient Goal Type Associated Problems Recent Progress Patient-Stated? Author Record your blood pressure once per day Blood Pressure No Nelia Sullivan, PharmD Blood Pressure < 140/90 Blood Pressure 130/64(2024 10:40 AM EST) No Nelia Sullivan PharmD Smoking cessation General No Yazmin Sullivansa, PharmD Patient will adhere to medication regimen [...] documented as of this encounter Care Teams Heavy Duty Custodian Relationship Specialty Start Date End Date Radha Jamison DO [address] [place] [address] [phone] PCP - General Family Medicine 01/26/12 Nelia Sullivan, PharmD [address] [place] [address] Pharmacist Internal Medicine 08/31/23 Laurel Monterroso Farmworker FruitHousekeeper/Custodian/Laundry Worker 10/27/22 Saige Aguilar 09/26/23 documented as of this encounter
--- OUTSIDE RECORDS SUMMARY | 2024-04-04 12:05 | XMS_ITS | Encounter Summary ---
Author Organization [email or web address] Address 75 [facility] 7t [place] [address] Care Team Providers Care Substation Designer Name Role Phone Radha Jamison DO Primary Care Provider +1- [phone] Abdias Murillo PharmD Unavailable Unavail able Nelia Sullivan PharmD Unavailable Reason for Visit * Reason Comments Med Refill Encounter Details Date Type Department Care Team (Late st Contact Info) Description 04/14/2023 Refill [facility] [address] [place], [place] [phone] Radha Jamison DO 230 [place], [place] [phone] Type 2 diabetes mellitus with hyperglycemia, with long-term current use of insulin ([facility]) Social History Tobacco Use Types Packs/Day Years Used Date Smoking Tobacco: Some Days Cigarettes Passive Smoke Exposure: Current Smokeless Tobacco: Never Alcohol Use Standard Drinks/Week Comments Never 0 (1 standard drink = 0.6 oz pur e alcohol) Depression Answer Date Recorded Patient Health Questionnaire-9 Score 4 11/08/2022 Housing Stability Answer Date Recorded What is your housing situation today? I have housing today, but I am worried about losing housing in the future 11/28/[address] you li ve. Do you have problems with any of the following? None of the above 11/28/2022 Food Insecurity Answer Date Recorded Within the past 12 months, y ou worried that your food would run out before you got money to buy more: Never True 11/28/2022 Within the past 12 months,th e food you bought just didn't last and you didn't have enough money to get more: Never True Transportation Answer Date Recorded In the past 12 months, has l ack of transportation kept you from medical appts, meetings, work or from getting things needed for daily living? No 11/28/2022 Utilities Answer Date Recorded In the past 12 months, has t he electric, gas, oil or water company threatened to shut off services in your home? No 11/28/2022 Depression Answer Date Recorded Patient Health Questionnaire-2 Score 2 11/08/2022 Comments Unknown Sex and Gender Information Value [...] 04/17/2024 9:30 AM EST Clinical Support [facility] [address] [place] [address] Acacia Chakraborty, JOANN 04/24/2024 2:30 PM EDT Office Visit [facility] [address] [place] [address] Peter Peña DDS [address] [place] [address] 05/09/2024 10:30 AM EDT Medication Management [address] [address] Nelia Sullivan, KeithD [address] [place] [address] 05/28/2024 9:45 AM EDT Office Visit [facility] [address] [place] [address] Radha Jamison DO [address] [place] [address] documented as of this encounter Goals Goal Patient Goal Type Associated Problems Recent Progress Patient-Stated? Author Hemoglobin A1c < 7 Result Component 10.6( 12:27 PM EST) Rod Owensis, PharmD documented as of this encounter Visit Diagnoses Diagnosis Type 2 diabetes mellitus with hyperglycemia, with long-term current use of insulin ([facility]) documented in this encounter Additional Health Concerns Assessment Noted Time PHQ-9 Depression Total Score: 4 11/09/19 23 11:27 AM EDT documented as of this encounter Care Teams Substation Designer Relationship Specialty Start Date End Date Radha Jmaison DO [address] [place] [address] PCP - General Family Medicine 01/26/12 Abdias Murillo, PharmD [address] [place] [address] Pharmacist Internal Medicine 03/21/22 08/30/23 Nelia Sullivan, Camron [address] [place] [address] Pharmacist Internal Medicine 08/31/23 Laurel Monterroso Boom Stick ManExtender 10/27/22 Saige Aguilar 09/26/23 documented as of this encounter
--- OUTSIDE RECORDS SUMMARY | 2024-04-04 12:05 | XMS_ITS | Encounter Summary ---
Author Organization [employer] [facility] Address [address] [facility] 7t [place] [address] Care Team Providers Care Powerhouse Engineer Name Role Phone ShaheenRadha Primary Care Provider +1- [phone] Nelia Sullivan PharmD Unavailable Reason for Visit * Reason Comments PAGEANT DIRECTOR RV PAGEANT DIRECTOR RV Encounter Details Date Type Department Care Team (Latest Contact Info) Description 04/03/2024 10:30 AM EST Clinical Support [facility] 230 [place], [place] [phone] Acacia Chakraborty RN Chronic bilateral low back [...] of this encounter Progress Notes * Acacia Cahkraborty RN - 04/03/2024 10:30 AM EST S: Pt here for PAGEANT DIRECTOR Revisit, translation provided by staff member Sofi Richardson Prescribed Oxycodone 5mg Q8hr as needed. Pateint is currently on oxycodone taper. States she has been taking as prescribed,last dose taken was last night. She smokes about 15 cigarettes daily. Denies ETOH use, Illicit druguse and marijuana use. Currently rates her pain a 9 and states medication is 80% effective at alleviating her pain. Current pain site is her left groin and left hip. O: PAGEANT DIRECTOR Tier 1. Pt currently prescribed Oxycodone 5mg Q8hr as needed. MINE SAFETY DIRECTOR verified today. Rx last filled on 03/27/24. Pill count performed. Patient has 3 oxycodone remaining, anticipated she would have2. Medication is not over used by patient. UTOX completed. Positive for OXY, Negative for AMP, BAR,BUP, BZO, ARMANI, FTY, MDMA, MET, MOP, MTD, PCP, TCA, THC. UTOX as expected. Reviewed sign/symptoms ofwithdrawal of patient, patient denies symptoms at this time. Reviewed the oxycodone taper schedule with patient again, she states she understands the instructions. Will send request for next oxycodone taper to covering PCP. Last PCP visit was 02/01/24. A: PAGEANT DIRECTOR Contract Revisit: Chronic Opioid use related to pain. P: Pt to continue taking medication only as prescribed; Next PAGEANT DIRECTOR RV appointment scheduled for 04/17/24 @ 9:30am, F/U sooner PRN. Appointment reminder given. Pt verbalized understanding and agreed to plan. documented in this encounter Plan of Treatment Upcoming Encounters Date Type Department Care Team (Late st Contact Info) Description 04/17/2024 9:30 AM EST Clinical Support [address] [address] Acacia Chakraborty RN 04/24/2024 2:30 PM EDT Office Visit [facility] [address] [place] [address] Peter Peña DDS [address] [place] [address] 05/09/2024 10:30 AM EDT Medication Management [address] [address] Nelia Sullivan, PharmD [address] [place] [address] 05/28/2024 9:45 AM EDT Office Visit [address] [address] Radha Jamison DO [address] [place] [address] documented as of this encounter Goals Goal [...] Comments POCT GUERO-14 URINE DRUG SCREEN Routine 04/03/2024 10:35 AM EST Chronic bilateral low back pain, unspecified whether sciatica present documented in this encounter Results * POCT GUERO-14 Urine Drug Screen (04/03/2024 10:35 AM EST) Oxycodone Screen, Urine Positive Urine Urine specimen obtained by clean catch procedure / Unknown 04/03/2024 10:35 AM EST Radha Jamison DO POINT OF CARE TEST ENTER/BHARGAVI T ORDERABLES Final Result documented in this encounter Visit Diagnoses Diagnosis Chronic bilateral low back pain, unspecified whether sciatica present- Primary documented in this encounter Additional Health Concerns Assessment Noted Time PHQ-9 Depression Total Score: 10 024 10:24 AM EST documented as of this encounter Care Teams Powerhouse Engineer Relationship Specialty Start Date End Date Radha Jamison DO 230 [place] [address] PCP - General Family Medicine 01/26/12 Nelia Sullivan PharmD 230 [place] [address] Pharmacist Internal Medicine 08/31/23 Laurel Monterroso Broke BeaterRespiratory Therapy Manager 10/27/22 Saieg Aguilar 09/26/23 documented as of this encounter
--- OUTSIDE RECORDS SUMMARY | 2024-04-04 12:05 | XMS_ITS | Encounter Summary ---
Author Organization [employer] Address [address] [facility] [address] 7t [place] [address] Care Team Providers Care Demo Coordinator Name Role Phone Radha Jamison DO Primary Care Provider +1- [phone] Abdias Murillo PharmD Unavailable Unavail able Nelia Sullivan PharmD Unavailable Encounter Details Date Type Department Care Team (Late st Contact Info) Description 06/15/2023 Orders Only [facility] 230 [place] [address] Radha Jamison DO 230 [place], [place] [phone] Stenosis of right carotid artery Social History Tobacco Use Types Packs/Day Years [...] Description 04/17/2024 9:30 AM EST Clinical Support [facility] [address] [place] [address] Acacia Chakraborty RN 04/24/2024 2:30 PM EDT Office Visit [facility] [address] [place] [address] Peter Peña DDS [address] [place] [address] 05/09/2024 10:30 AM EDT Medication Management [address] [address] Nelia Sullivan, PharmD [address] [place] [address] 05/28/2024 9:45 AM EDT Office Visit [address] [address] Radha Jamison DO 230 [place] [address] documented as of this encounter Goals Goal Patient Goal Type Associated Problems Recent Progress Patient-Stated? Author Hemoglobin A1c < 7 Result Component 10.6( 12:27 PM EST) No Abdias Murillo, PharmD documented as of this encounter Procedures Procedure Name Priority Date/Time Associated Diagnosis Comments AMB REFERRAL TO VASCULAR SURGERY STAT 04/13/2023 Stenosis of right carotid artery documented in this encounter Results * Referral to Vascular Surgery (04/13/2023) Radha Jamison DO OUTPATIENT REFERRAL ORDERABL ES Final Result documented in this encounter Visit Diagnoses Diagnosis Stenosis of right carotid artery Occlusion and stenosis of carotid artery without mention of cerebral infarction documented in this encounter Additional Health Concerns Assessment Noted Time PHQ-9 Depression Total Score: 4 11/09/19 23 11:27 AM EDT documented as of this encounter Care Teams Demo Coordinator Relationship Specialty Start Date End Date Radha Jamison DO 230 [place] [address] PCP - General Family Medicine 01/26/12 Abdias Murillo, KeithD [address] [place] [address] Pharmacist Internal Medicine 03/21/22 08/30/23 Nelia Sullivan, Camron [address] [place] [address] Pharmacist Internal Medicine 08/31/23 Laurel Monterroso Career And Guidance CounselorOil Inspector 10/27/22 Saige Aguilar 09/26/23 documented as of this encounter
--- OUTSIDE RECORDS SUMMARY | 2024-04-04 12:05 | XMS_ITS | Encounter Summary ---
Author Organization [employer] Address 75 [facility] 7t [place] [address] Care Team Providers Care Director [employer] Name Role Phone ShaheenRadha Primary Care Provider +1- [phone] Nelia Sullivan PharmD Unavailable [phone] Reason for Visit * Reason Comments Med Refill Encounter Details Date Type Department Care Team ([facility] Contact Info) Description 03/26/2024 Refill [facility] 230 [place] [address] Paramjit Arias MD 230 [place] [address] Chronic bilateral low back pain, unspecified whether [...] with others, in a hotel, in a intermediate, living outside on the street, on a [...] the past 12 months, has t he [employer], gas, oil or water company threatened to [...] Description 04/17/2024 9:30 AM EST Clinical Support [address] [address] Acacia Chakraborty, RN 04/24/2024 2:30 PM EDT Office Visit [facility] [address] [place] [address] Peter Peña DDS [address] [place] [address] 05/09/2024 10:30 AM EDT Medication Management [facility] [address] [place] [address] Nelia Sullivan, PharmD [address] [place] [address] 05/28/2024 9:45 AM EDT Office Visit [address] [address] Radha Jamison DO [address] [place] [address] documented as of this encounter Goals Goal Patient Goal Type Associated Problems Recent Progress Patient-Stated? Author Record your blood pressure once per day Blood Pressure No Puia, Nelia, PharmD Blood Pressure < 140/90 Blood Pressure 130/64(2024 10:40 AM EST) No Puia Nelia, PharmD Smoking cessation General No Puia, Nelia, PharmD Patient will adhere to medication regimen General No Puia, Nelia, PharmD Hemoglobin A1c < 7 Result Component 10.6(03/05/19 12:27 PM EST) No Abdias Murillo PharmD Record your blood sugar as directed Result Component No Nelia Sullivan, PharmD Note: Use CGM, ensuring sensor is [...] documented as of this encounter Care Teams Director [employer] Relationship Specialty Start Date End Date Lisa JamisonferDO 230 [place] [address] PCP - General Family Medicine 01/26/12 Nelia Sullivan, PharmD 230 [place] [address] Pharmacist Internal Medicine 08/31/23 Laurel Monterroso Director Statistical ProgrammingSpeaker Mounter 10/27/22 Saige Aguilar 09/26/23 documented as of this encounter
--- OUTSIDE RECORDS SUMMARY | 2024-04-04 12:05 | XMS_ITS | Encounter Summary ---
Author Organization [employer] Address 75 [facility] 7t [place] [address] Care Team Providers Care Human Resource Manager Name Role Phone Radha Jamison DO Primary Care Provider +1- [phone] Abdias Murillo PharmD Unavailable Unavail able Nelia Sullivan PharmD Unavailable [phone] Reason for Visit * Reason Onset Date Comments uber 05/08/2023 Encounter Details Date Type Department Care Team ([facility] st Contact Info) Description 05/08/2023 Telephone [facility] [address] [place] [address] Radha Jamison DO 230 [place] [address] uber Social History Tobacco Use Types Packs/Day Years [...] encounter Miscellaneous Notes * Telephone Encounter - Tata Rosa - 05/12/2023 10:40 AM EDT Patient will recieve approval / denial letter via mail. PT-1 Request [id number] Pending . [facility] [address] [place] [address] House Registry Rn noticed pt has pending referrals. House Registry Rn has added a note to each to add PT1 for referred tooffice. * Telephone Encounter - Ginna Stephen RN - 05/10/2023 9:31 AM EDT Uber booked for tomorrow 8:45am. TC placed to pt. And made pt. Aware. Pt. Also reports PT-1 expiredand would like it renewed for next time, to [facility] * Telephone Encounter - Ciera Carson - 05/10/2023 9:07 AM EDT Tc from pt calling in regards to message above. Pt also received a call, music writer does not see any documentation. Please contact pt at [phone] * Telephone Encounter - Ciera Carson - 05/08/2023 12:54 PM EDT Tc from pt states will need uber transportation for 05/10 with provider. Please contact pt at [phone] documented in this encounter Plan of Treatment Upcoming Encounters Date Type Department Care Team (Late st Contact Info) Description 04/17/2024 9:30 AM EST Clinical Support [facility] [address] [place] [address] Acacia Chakraborty, RN 04/24/2024 2:30 PM EDT Office Visit [facility] [address] [place] [address] Peter Peña DDS [address] [place] [address] 05/09/2024 10:30 AM EDT Medication Management [address] [address] Nelia Sullivan, PharmD [address] [place] [address] 05/28/2024 9:45 AM EDT Office Visit [address] [address] Radha Jamison DO 230 [place] [address] documented as of this encounter Goals Goal Patient Goal Type Associated Problems Recent Progress Patient-Stated? Author Hemoglobin A1c < 7 Result Component 10.6( 12:27 PM EST) No Abdias Murillo, PharmD documented as of this encounter Visit Diagnoses Not on filedocumented in this encounter Additional Health Concerns Assessment Noted Time PHQ-9 Depression Total Score: 4 11/09/19 23 11:27 AM EDT documented as of this encounter Care Teams Human Resource Manager Relationship Specialty Start Date End Date Radha Jamison DO [address] [place] [address] PCP - General Family Medicine 01/26/12 Abdias Murillo, PharmD [address] [place] [address] Pharmacist Internal Medicine 03/21/22 08/30/23 Nelia Sullivan, KeithD [address] [place] [address] Pharmacist Internal Medicine 08/31/23 Laurel Monterroso Automatic Silk Screen PrinterTest Lead 10/27/22 Saige Aguilar 09/26/23 documented as of this encounter
--- OUTSIDE RECORDS SUMMARY | 2024-04-04 12:05 | XMS_ITS | Encounter Summary ---
Author Organization [employer] Address 75 [facility] 7t [place] [address] Care Team Providers Care Carpenters Name Role Phone ShaheenRadha Primary Care Provider +1- [phone] PuNelia cortes PharmD Unavailable [phone] Reason for Visit * Reason Comments Med Refill Encounter Details Date Type Department Care Team ([facility] Contact Info) Description 04/03/[address] [facility] [address] [place] [address] Puia Nelia, PharmD 230 [place] [address] Social History Tobacco Use Types Packs/Day Years [...] with others, in a hotel, in a chcf, living outside on the street, on a [...] encounter Miscellaneous Notes * Telephone Encounter - Nelia Sullivan PharmD - 04/03/2024 1:55 PM EST Spoke to Tip in pharmacy, he thinks this request was sent in error as patient just received new reader last month 03/11/24. I have follow up visit with patient tomorrow and will address then PRN documented in this encounter Plan of Treatment Upcoming Encounters Date Type Department Care Team (Late st Contact Info) Description 04/17/2024 9:30 AM EST Clinical Support [facility] [address] [place] [address] Acacia Chakraborty, JOANN 04/24/2024 2:30 PM EDT Office Visit [facility] [address] [place] [address] Peter Peña DDS [address] [place] [address] 05/09/2024 10:30 AM EDT Medication Management [facility] [address] [place] [address] Nelia Sullivan PharmD 230 [place] [address] 05/28/2024 9:45 AM EDT Office Visit [facility] [address] [place] [address] Radha Jamison DO [address] [place] [address] documented as of this encounter Goals Goal [...] documented as of this encounter Care Teams Carpenters Relationship Specialty Start Date End Date Radha Jamison DO [address] [place] [phone] PCP - General Family Medicine 01/26/12 Nelia Sullivan PharmD [address] [place] [phone] Pharmacist Internal Medicine 08/31/23 Laurel Monterroso Life AgentFurniture Duster 10/27/22 Saige Aguilar 09/26/23 documented as of this encounter
--- OUTSIDE RECORDS SUMMARY | 2024-04-04 12:05 | XMS_ITS | Encounter Summary ---
Author Organization [employer] Address [address] [facility] 7t [place] [address] Care Team Providers Care Electric Power Line Repairer Name Role Phone Radha Jamison DO Primary Care Provider +1- [phone] Nelia Sullivan PharmD Unavailable [phone] Reason for Visit * Reason Onset Date Comments Medication Question 03/26/2024 Encounter Details Date Type Department Care Team ([facility] st Contact Info) Description 03/26/2024 Telephone [facility] 230 [place], [place] [phone] Radha Jamison DO 230 [place], [place] [phone] Medication Question Social History Tobacco Use Types Packs/Day Years [...] with others, in a hotel, in a usp, living outside on the street, on a [...] the past 12 months, has t he [employer], gas, oil or water company threatened to [...] Telephone Encounter - Acacia Chakraborty RN - 03/27/2024 12:26 PM EST Return TC via BLS#[id number], reviewed this weeks taper order. Pt stated she understood. * Telephone Encounter - Zurdo Garcia - 03/26/2024 1:03 PM EST Tc from pt requesting a call back from Nurse Acacia Chakraborty regarding medication (Oxycodone). documented in this encounter Plan of Treatment Upcoming Encounters Date Type Department Care Team (Late st Contact Info) Description 04/17/2024 9:30 AM EST Clinical Support [facility] [address] [place] [address] Acacia Chakraborty RN 04/24/2024 2:30 PM EDT Office Visit [facility] [address] [place] [address] Peter Peña, MARCIALS [address] [place] [address] 05/09/2024 10:30 AM EDT Medication Management [facility] [address] [place] [address] PuiaYazminsa, PharmD [address] [place] [address] 05/28/2024 9:45 AM EDT Office Visit [facility] [address] [place] [address] Radha Jamison DO [address] [place] [address] documented as of this encounter Goals Goal [...] Component 10.6(03/05/19 25 12:27 PM EST) No DelAbdias hardy, PharmD Record your blood sugar as directed Result Component No Puia, Nleia, PharmD Note: Use CGM, ensuring sensor is scanned at least once every 8 hours to capture 24H data. Check BG manually, as directed. documented as of this encounter Visit Diagnoses Not on filedocumented in this encounter Additional Health Concerns Assessment Noted Time PHQ-9 Depression Total Score: 10 024 10:24 AM EST documented as of this encounter Care Teams Electric Power Line Repairer Relationship Specialty Start Date End Date Radha Jamison DO [address] [place] [address] PCP - General Family Medicine 01/26/12 Nelia Sullivan, Camron [address] [place] [address] Pharmacist Internal Medicine 08/31/23 Laurel Monterroso Staff CounselWomen'S Ministry Director 10/27/22 Saige Aguilar 09/26/23 documented as of this encounter
--- OUTSIDE RECORDS SUMMARY | 2024-04-04 12:05 | XMS_ITS | Encounter Summary ---
Author Organization [employer] Address 75 [facility] 7t [place] [address] Care Team Providers Care College Associate Name Role Phone Radha Jamison DO Primary Care Provider [phone]- [phone] Abdias Murillo PharmD Unavailable Unavail able Nelia Sullivan PharmD Unavailable Reason for Visit * Reason Comments Med Refill Encounter Details Date Type Department Care Team (Late st Contact Info) Description 04/14/2023 Refill [facility] 230 [place], [place] [phone] Radha Jamison DO 230 [place], [place] [phone] Type 2 diabetes mellitus with hyperglycemia, with long-term current use of insulin ([facility]) Social History Tobacco Use Types Packs/Day Years [...] Description 04/17/2024 9:30 AM EST Clinical Support [facility] [address] [place] [address] Acacia Chakraborty, JOANN 04/24/2024 2:30 PM EDT Office Visit [facility] ADULT DENTAL [address] [place] [address] Peter Peña DDS [address] [place] [address] 05/09/2024 10:30 AM EDT Medication Management [address] [address] Nelia Sullivan, KeithD [address] [place] [address] 05/28/2024 9:45 AM EDT Office Visit [facility] [address] [place] [address] Radha Jamison DO [address] [place] [address] documented as of this encounter Goals Goal Patient Goal Type Associated Problems Recent Progress Patient-Stated? Author Hemoglobin A1c < 7 Result Component 10.6( 12:27 PM EST) Rod Owensis, PharmD documented as of this encounter Visit Diagnoses Diagnosis Type 2 diabetes mellitus with hyperglycemia, with long-term current use of insulin ([facility]) documented in this encounter Additional Health Concerns Assessment Noted Time PHQ-9 Depression Total Score: 4 11/09/19 23 11:27 AM EDT documented as of this encounter Care Teams College Associate Relationship Specialty Start Date End Date Radha Jamison DO [address] [place] [address] PCP - General Family Medicine 01/26/12 Abdias Murillo, PharmD [address] [place] [address] Pharmacist Internal Medicine 03/21/22 08/30/23 Nelia Sullivan, Camron [address] [place] [address] Pharmacist Internal Medicine 08/31/23 Laurel Monterroso Collection Development LibrarianStevedoring Superintendent 10/27/22 Saige Aguilar 09/26/23 documented as of this encounter
--- OUTSIDE RECORDS SUMMARY | 2024-04-04 12:05 | XMS_ITS | Encounter Summary ---
Author Organization [employer] Address 75 [facility] 7t [place] [address] Care Team Providers Care Nuclear Physicist Name Role Phone Radha Jamison DO Primary Care Provider +1- [phone] Nelia Sullivan PharmD Unavailable [phone] Reason for Visit * Reason Onset Date Comments Med Refill 03/26/2024 Encounter Details Date Type Department Care Team (Late st Contact Info) Description 03/26/2024 Refill [facility] MEDICINE [address] [place] [address] Radha Jamison DO [address] [place] [address] Chronic bilateral low back pain, unspecified whether [...] with others, in a hotel, in a care home, living outside on the street, on [...] encounter Miscellaneous Notes * Telephone Encounter - Zurdo Garcia - 03/26/2024 1:00 PM EST TC from pt requesting medication refill. Medications needing refill : oxyCODONE (Roxicodone) 5 MG immediate release tablet To be sent to: [facility] - [place], [place] - [address] [place] [address] documented in this encounter Plan of Treatment Upcoming Encounters Date Type Department Care Team (Late st Contact Info) Description 04/17/2024 9:30 AM EST Clinical Support [facility] MEDICINE [address] [place] [address] Acacia Chakraborty, RN 04/24/2024 2:30 PM EDT Office Visit [facility] ADULT DENTAL [address] [place] [address] Peter Peña DDS [address] [place] [address] 05/09/2024 10:30 AM EDT Medication Management [address] [address] Nelia Sullivan PharmD [address] [place] [address] 05/28/2024 9:45 AM EDT Office Visit [facility] MEDICINE [address] [place] [address] Radha Jamison DO [address] [place] [address] documented as of this encounter Goals Goal Patient Goal Type Associated Problems Recent Progress Patient-Stated? Author Record your blood pressure once per day Blood Pressure No AnaiiaYazminsa, PharmD Blood Pressure < 140/90 Blood Pressure [...] documented as of this encounter Care Teams Nuclear Physicist Relationship Specialty Start Date End Date Radha Jamison DO [address] [place] [address] PCP - General Family Medicine 01/26/12 Nelia Sullivan, PharmD [address] [place] [address] Pharmacist Internal Medicine 08/31/23 Laurel Monterroso Supervisor Pressing DepartmentFish Hatchery Worker 10/27/22 Saige Aguilar 09/26/23 documented as of this encounter
--- OUTSIDE RECORDS SUMMARY | 2024-04-04 12:05 | XMS_ITS | Encounter Summary ---
Author Organization [employer] Address 75 [facility] 7t [place] [address] Care Team Providers Care Principle Software Engineer Name Role Phone Radha Jamison DO Primary Care Provider +1- [phone] Nelia Sullivan PharmD Unavailable [phone] Encounter Details Date Type Department Care Team (Late st Contact Info) Description 04/03/2024 Refill [facility] MEDICINE [address] [place] [address] Radha Jamison DO [address] [place] [address] Hypertension, unspecified type Social History Tobacco Use Types Packs/Day Years [...] with others, in a hotel, in a alf, living outside on the street, on a [...] 04/17/2024 9:30 AM EST Clinical Support [facility] MEDICINE [address] [place] [address] Acacia Chakraborty, RN 04/24/2024 2:30 PM EDT Office Visit [facility] ADULT DENTAL [address] [place] [address] Peter Peña DDS [address] [place] [address] 05/09/2024 10:30 AM EDT Medication Management [facility] MEDICINE [address] [place] [address] Nelia Sullivan, Camron [address] [place] [address] 05/28/2024 9:45 AM EDT Office Visit [facility] MEDICINE [address] [place] [address] Radha Jamison DO [address] [place] [address] documented as of this encounter Goals Goal [...] as of this encounter Visit Diagnoses Diagnosis Hypertension, unspecified type documented in this encounter Additional Health Concerns Assessment Noted Time PHQ-9 Depression Total Score: 10 024 10:24 AM EST documented as of this encounter Care Teams Principle Software Engineer Relationship Specialty Start Date End Date Radha Jamison DO [address] [place] [address] PCP - General Family Medicine 01/26/12 Nelia Sullivan, PharmD [address] [place] [address] Pharmacist Internal Medicine 08/31/23 Laurel Monterroso Sales Support RepresentativeFormula Maker 10/27/22 Saige Aguilar 09/26/23 documented as of this encounter
--- OUTSIDE RECORDS SUMMARY | 2024-04-04 12:05 | XMS_ITS | Encounter Summary ---
Author Organization [employer] Address 75 [facility] 7t [place] [address] Care Team Providers Care Polisher Balance Screwhead Name Role Phone Radha Jamison DO Primary Care Provider +1- [phone] Nelia Sullivan PharmD Unavailable [phone] Reason for Visit * Reason Comments Med Refill Encounter Details Date Type Department Care Team ([facility] Contact Info) Description 03/21/2024 Refill [facility] [address] [place], [place] [phone] Radha Jamison DO 230 [place] [address] Other chronic pain; Mood disorder (CMS/HCC) Social History Tobacco Use Types Packs/Day Years [...] the past 12 months, has t he [employer], [employer], oil or water [employer] threatened to shut off services in your [...] Description 04/17/2024 9:30 AM EST Clinical Support [address] [address] Acacia Chakraborty, RN 04/24/2024 2:30 PM EDT Office Visit [facility] ADULT DENTAL [address] [place] [address] Peter Peña DDS [address] [place] [address] 05/09/2024 10:30 AM EDT Medication Management [address] [address] Nelia Sullivan, PharmD [address] [place] [address] 05/28/2024 9:45 AM EDT Office Visit [address] [address] Rdaha Jamison DO 230 [place] [address] documented as of this encounter Goals Goal Patient Goal Type Associated Problems Recent Progress Patient-Stated? Author Record your blood pressure once per day Blood Pressure No Anaiia, Nelia, PharmD Blood Pressure < 140/90 Blood Pressure 130/64(2024 10:40 AM EST) No AnaiiaFeliceNelia, PharmD Smoking cessation General No Puia, Nelia, [...] as of this encounter Visit Diagnoses Diagnosis Other chronic pain Mood disorder (CMS/HCC) Unspecified episodic mood disorder documented in this encounter Additional Health Concerns Assessment Noted Time PHQ-9 Depression Total Score: 10 024 10:24 AM EST documented as of this encounter Care Teams Polisher Balance Screwhead Relationship Specialty Start Date End Date Lisa JamisonferDO 230 [place] [address] PCP - General Family Medicine 01/26/12 Nelia Sullivan, PharmD [address] [place] [address] Pharmacist Internal Medicine 08/31/23 Laurel Monterroso Senior Network AdministratorMedical Radiation Tech 10/27/22 Saige Aguilar 09/26/23 documented as of this encounter
--- OUTSIDE RECORDS SUMMARY | 2024-04-04 12:05 | XMS_ITS | Encounter Summary ---
Author Organization [employer] Address 75 [facility] 7t [place] [address] Care Team Providers Care Automotive Airconditioning Mechanic Name Role Phone ShaheenRadha Primary Care Provider +1- [phone] PuNelia cortes PharmD Unavailable [phone] Reason for Visit * Reason Onset Date Comments Prior Authorization 03/06/2024 XDN/[employer] 3 Read er ([facility]) Encounter Details Date Type Department Care Team ([facility] Contact Info) Description 03/06/2024 Telephone [facility] MEDICINE [address] [place] [address] Puia, Nelia, PharmD [address] [place] [address] Prior Authorization ([employer] [place] ([facility])) Social History Tobacco Use Types Packs/Day Years [...] with others, in a hotel, in a custodial, living outside on the street, on a [...] Telephone Encounter - Nelia Sullivan PharmD - 03/06/2024 4:02 PM EST Incoming call from pharmacy - [employer] Jenn 3 reader (confirmed w/ pharmacy reader only, not the Jenn 3 plus sensors or darwin strips) require PA. [facility] prepared & faxed PA to plan today; awaiting response at this time & patient is aware. PA packet sent to HIM for upload into EHR. FYI to PA team - this request is all set. documented in this encounter Plan of Treatment Upcoming Encounters Date Type Department Care Team (Late st Contact Info) Description 04/17/2024 9:30 AM EST Clinical Support [facility] MEDICINE [address] [place] [address] Acacia Chakraborty RN 04/24/2024 2:30 PM EDT Office Visit [facility] ADULT DENTAL [address] [place] [address] Peter Peña DDS [address] [place] [address] 05/09/2024 10:30 AM EDT Medication Management [facility] MEDICINE [address] [place] [address] Nelia Sullivan, PharmD [address] [place] [address] 05/28/2024 9:45 AM EDT Office Visit [facility] MEDICINE [address] [place] [address] Radha Jamison DO [address] [place] [address] documented as of this encounter Goals Goal Patient Goal Type Associated Problems Recent Progress Patient-Stated? Author Record your blood pressure once per day Blood Pressure No Puia, Nelia, PharmD Blood Pressure < 140/90 Blood Pressure 130/64(2024 10:40 AM EST) No AnaiiaFeliceNelia, PharmD Smoking cessation General No Puia Nelia, PharmD Patient will adhere to medication regimen General No Puia, Nelia, PharmD Hemoglobin A1c < 7 Result Component 10.6(03/05/19 25 12:27 PM EST) No Abdias Murillo PharmAdrian Record your blood sugar as directed Result [...] documented as of this encounter Care Teams Automotive Airconditioning Mechanic Relationship Specialty Start Date End Date Radha Jamison DO [address] [place], [place] [phone] PCP - General Family Medicine 01/26/12 Nelia Sullivan, Camron [address] [place] [address] Pharmacist Internal Medicine 08/31/23 Laurel Monterroso Reed DipperField Service Poultry Technician 10/27/22 Saige Aguilar 09/26/23 documented as of this encounter
--- OUTSIDE RECORDS SUMMARY | 2024-04-04 12:05 | XMS_ITS | Encounter Summary ---
Author Organization [employer] Address 75 [facility] 7t [place] [address] Care Team Providers Care Hand Silvering Supervisor Name Role Phone ShaheenRadha Primary Care Provider [phone]- [phone] PuNelia cortes PharmD Unavailable [phone] Reason for Visit * Reason Onset Date Comments Prior Authorization 03/08/2024 [facility] read er Encounter Details Date Type Department Care Team ([facility] st Contact Info) Description 03/08/2024 Telephone [facility] MEDICINE [address] [place] [address] Puia Nelia, PharmD [address] [place] [address] Prior Authorization ([facility] reader) Social History Tobacco Use Types Packs/Day Years [...] with others, in a hotel, in a jail, living outside on the street, on a [...] Telephone Encounter - Nelia Sullivan PharmD - 03/08/2024 1:25 PM EST Outgoing call to YUE RAGLAND regarding PA denial for Jenn 3 reader. I explained Jenn 3+ sensors are not compatible with Jenn 2 reader approved prior & conveyed my rationale for ongoing CGM use in this patient. YUE RAGLAND [facility] requested I resubmit PA with additional clinical rationale. I resubmitted PA today with 03/05 office note & letter of clinical rationale. I will send this new PA packet to HIM for scan. I am hopeful based on this explanation that [employer] will approve the reader next week. FYI to PA team - this request is all set for now. documented in this encounter Plan of Treatment Upcoming Encounters Date Type Department Care Team (Late st Contact Info) Description 04/17/2024 9:30 AM EST Clinical Support [facility] MEDICINE [address] [place] [address] Acacia Chakraborty RN 04/24/2024 2:30 PM EDT Office Visit [facility] ADULT DENTAL [address] [place] [address] Peter Peña DDS [address] [place] [address] 05/09/2024 10:30 AM EDT Medication Management [address] [address] Puia, Nelia, PharmD [address] [place] [address] 05/28/2024 9:45 AM EDT Office Visit [address] [address] Radha Jamison DO [address] [place] [address] documented as of this encounter Goals Goal [...] Component 10.6(03/05/19 25 12:27 PM EST) No DellogonoAbdias, PharmD Record your blood sugar as directed [...] documented as of this encounter Care Teams Hand Silvering Supervisor Relationship Specialty Start Date End Date Radha Jamison DO [address] [place], [place] [phone] PCP - General Family Medicine 01/26/12 Nelia Sullivan, Camron [address] [place] [address] Pharmacist Internal Medicine 08/31/23 Laurel Monterroso Securities Vault SupervisorJob Order Clerk 10/27/22 Saige Aguilar 09/26/23 documented as of this encounter
--- OUTSIDE RECORDS SUMMARY | 2024-04-04 12:05 | XMS_ITS | Encounter Summary ---
Author Organization [employer] Address 75 [facility] 7t [place] [address] Care Team Providers Care Circuit Board Assembler Name Role Phone Radha Jamison DO Primary Care Provider [phone]- [phone] Nelia Sullivan PharmD Unavailable [phone] Reason for Visit * Reason Onset Date Comments Med Refill oxycodone taper plan 03/06/2024 Encounter Details Date Type Department Care Team (Late st Contact Info) Description 03/06/2024 Refill [facility] MEDICINE [address] [place] [address] Radha Jamison DO [address] [place] [address] Chronic bilateral low back pain, unspecified whether [...] with others, in a hotel, in a fci, living outside on the street, on a [...] the past 12 months, has t he [employer], gas, oil or water [employer] threatened to shut off services in your [...] Telephone Encounter - Acacia Chakraborty RN - 03/07/2024 9:43 AM EST Per discussion with PCP, patient to be tapered off Oxycodone. PCP would like taper plan to be : Oxycodone 5mg Q6hr X 2wks 2. Oxycodone 5mg Q8hr x 2wks 3. Oxycodone 5mg Q12hr X 2wks 4. Oxycodone 5mg QD X 2wks 5. Then STOP. Each RX needs to be for a 7 day supply at a time. TC to patient, via BLS#[id number], reviewed PCP plan with patient. Advised to call if any s/s withdrawal. Pt stated she understood. documented in this encounter Plan of Treatment Upcoming Encounters Date Type Department Care Team (Late st Contact Info) Description 04/17/2024 9:30 AM EST Clinical Support [facility] MEDICINE [address] [place] [address] Acacia Chakraborty RN 04/24/2024 2:30 PM EDT Office Visit [facility] ADULT DENTAL [address] [place] [address] Peter Peña DDS [address] [place] [address] 05/09/2024 10:30 AM EDT Medication Management [address] [address] Nelia Sullivan PharmD [address] [place] [address] 05/28/2024 9:45 AM EDT Office Visit [address] [address] Radha Jamison DO [address] [place] [address] documented as of this encounter Goals Goal Patient Goal Type Associated Problems Recent Progress Patient-Stated? Author Record your blood pressure once per day Blood Pressure No Puia, Nelia, PharmD Blood Pressure < 140/90 Blood Pressure 130/64(2024 10:40 AM EST) No PuiaFeliceNelia, PharmD Smoking cessation General No Puia, Nelia, [...] documented as of this encounter Care Teams Circuit Board Assembler Relationship Specialty Start Date End Date Radha Jamison DO [address] [place] [address] PCP - General Family Medicine 01/26/12 Nelia Sullivan, Camron [address] [place] [address] Pharmacist Internal Medicine 08/31/23 Laurel Monterroso Furniture Decals InspectorThermometer Tester 10/27/22 Saige Aguilar 09/26/23 documented as of this encounter
--- OUTSIDE RECORDS SUMMARY | 2024-04-04 12:05 | XMS_ITS | Encounter Summary ---
Author Organization [employer] Address 75 [facility] 7t [place] [address] Care Team Providers Care Registered Appraiser Name Role Phone ShaheenRadha Primary Care Provider [phone]- [phone] Nelia Sullivan PharmD Unavailable Encounter Details Date Type Department Care Team (Latest Contact Info) Description 04/03/2024 Travel Social History Tobacco Use Types Packs/Day [...] with others, in a hotel, in a correction, living outside on the street, on a [...] Description 04/17/2024 9:30 AM EST Clinical Support [facility] MEDICINE [address] [place] [address] Acacia Chakraborty, JOANN 04/24/2024 2:30 PM EDT Office Visit [facility] ADULT DENTAL [address] [place] [address] Peter Peña DDS [address] [place] [address] 05/09/2024 10:30 AM EDT Medication Management [address] [address] Nelia Sullivan PharmD [address] [place] [address] 05/28/2024 9:45 AM EDT Office Visit [address] [address] Radha Jamison DO [address] [place] [address] documented as of this encounter Goals Goal [...] documented as of this encounter Care Teams Registered Appraiser Relationship Specialty Start Date End Date Radha Jamison DO [address] [place] [address] PCP - General Family Medicine 01/26/12 Nelia Sullivan PharmD [address] [place] [address] Pharmacist Internal Medicine 08/31/23 Laurel Monterroso Foxing Cutting Machine OperatorRotary Machine Operator 10/27/22 Saige Aguilar 09/26/23 documented as of this encounter
--- OUTSIDE RECORDS SUMMARY | 2024-04-04 12:06 | XMS_ITS | Encounter Summary ---
Author Organization [employer] Address 75 [facility] 7t [place] [address] Care Team Providers Care Central Office Equipment Installer Name Role Phone Radha Jamison DO Primary Care Provider [phone]- [phone] Abdias Murillo PharmD Unavailable Unavail able Nelia Sullivan PharmD Unavailable [phone] Reason for Visit * Reason Onset Date Comments Med Refill 10/24/2022 Encounter Details Date Type Department Care Team (Late st Contact Info) Description 10/24/2022 Telephone [facility] MEDICINE [address] [place] [address] Radha Jamison DO [address] [place] [address] Med Refill Social History Tobacco Use Types Packs/Day Years Used Date Smoking Tobacco: Some Days Cigarettes Passive Smoke Exposure: Current Smokeless Tobacco: Never Alcohol Use Standard Drinks/Week Comments Never 0 (1 standard drink = 0.6 oz pur e alcohol) PHQ-2 Answer Date Recorded Patient Health Questionnaire-2 Score 4 03/18/2022 Comments Unknown Sex and Gender Information Value Date Recorded Sex Assigned at Female 12/13/2021 10:16 AM EDT Legal Sex Female 10:16 AM EDT Gender Identity Choose not to disclose 10:16 AM EDT Sexual Orientation Straight 12/13/2021 10 :16 AM EDT documented as of this encounter Miscellaneous Notes * Telephone Encounter - Acacia Chakraborty RN - 10/24/2022 12:28 PM EDT Oxycodone refill too soon. Medication not due for refill until 11/01/22. Will forward request to PCPon 10/28/22. * Telephone Encounter - La Dash - 10/24/2022 11:33 AM EDT Tc from pt requesting med refill for medication oxyCODONE (Roxicodone) 5 MG immediate release tablet. documented in this encounter Plan of Treatment Upcoming Encounters Date Type Department Care Team (Late st Contact Info) Description 04/17/2024 9:30 AM EST Clinical Support [facility] MEDICINE [address] [place] [address] Acacia Chakraborty RN 04/24/2024 2:30 PM EDT Office Visit [facility] ADULT DENTAL [address] [place] [address] Peter Peña DDS [address] [place] [address] 05/09/2024 10:30 AM EDT Medication Management [facility] MEDICINE [address] [place] [address] Nelia Sullivan PharmD [address] [place] [address] 05/28/2024 9:45 AM EDT Office Visit [facility] MEDICINE [address] [place] [address] Radha Jamison DO [address] [place] [address] documented as of this encounter Goals Goal Patient Goal Type Associated Problems Recent Progress Patient-Stated? Author Hemoglobin A1c < 7 Result Component 10.6( 12:27 PM EST) No Abdias Murillo PharmD documented as of this encounter Visit Diagnoses Not on filedocumented in this encounter Additional Health Concerns Assessment Noted Time PHQ-9 Depression Total Score: 14 023 12:00 PM EST documented as of this encounter Care Teams Central Office Equipment Installer Relationship Specialty Start Date End Date Radha Jamison DO [address] [place] [address] PCP - General Family Medicine 01/26/12 Abdias Murillo PharmD [address] [place] [address] Pharmacist Internal Medicine 03/21/22 08/30/23 Nelia Sullivan PharmD [address] [place] [address] Pharmacist Internal Medicine 08/31/23 Laurel Monterroso Clip On Sunglasses AssemblerCredit Operations Specialist 10/27/22 Saige Aguilar 09/26/23 documented as of this encounter
--- OUTSIDE RECORDS SUMMARY | 2024-04-04 12:06 | XMS_ITS | Encounter Summary ---
Author Organization [employer] Address 75 [facility] 7t [place] [address] Care Team Providers Care Flatwork Supervisor Name Role Phone Radha Jamison DO Primary Care Provider [phone]- [phone] Abdias Murillo PharmD Unavailable Unavail able Nelia Sullivan PharmD Unavailable [phone] Reason for Visit * Reason Comments Med Refill Encounter Details Date Type Department Care Team (Late st Contact Info) Description 08/01/2023 Refill [facility] MEDICINE [address] [place], [place] [phone] Radha Jamison DO [address] [place] [address] Chronic bilateral low back pain, unspecified whether sciatica present Social History Tobacco Use Types Packs/Day Years Used Date Smoking Tobacco: Every Day Cigarettes Passive Smoke Exposure: Current Smokeless Tobacco: [...] Description 04/17/2024 9:30 AM EST Clinical Support [address] [address] Acacia Chakraborty, JOANN 04/24/2024 2:30 PM EDT Office Visit [facility] ADULT DENTAL [address] [place] [address] Peter Peña DDS [address] [place] [address] 05/09/2024 10:30 AM EDT Medication Management [address] [address] Nelia Sullivan, PharmD [address] [place] [address] 05/28/2024 9:45 AM EDT Office Visit [address] [address] Radha Jamison DO [address] [place] [address] documented as of this encounter Goals Goal Patient Goal Type Associated Problems Recent Progress Patient-Stated? Author Hemoglobin A1c < 7 Result Component 10.6( 5 12:27 PM EST) No Abdias Murillo, PharmD documented as of this encounter Visit Diagnoses Diagnosis Chronic bilateral low back pain, unspecified whether sciatica present documented in this encounter Additional Health Concerns Assessment Noted Time PHQ-9 Depression Total Score: 4 11/09/19 23 11:27 AM EDT documented as of this encounter Care Teams Flatwork Supervisor Relationship Specialty Start Date End Date Radha Jamison DO [address] [place] [address] PCP - General Family Medicine 01/26/12 Abdias Murillo, PharmD [address] [place] [address] Pharmacist Internal Medicine 03/21/22 08/30/23 Nelia Sullivan PharmD [address] [place] [address] Pharmacist Internal Medicine 08/31/23 Laurel Monterroso Victim Witness AdministratorLathe Turner 10/27/22 Saige Aguilar 09/26/23 documented as of this encounter
--- OUTSIDE RECORDS SUMMARY | 2024-04-04 12:06 | XMS_ITS | Encounter Summary ---
Author Organization [employer] Address [address] [facility] 7t [place] [address] Care Team Providers Care Linderman Machine Operator Name Role Phone ShaheenRadha Primary Care Provider [phone] Abdias Murillo PharmD Unavailable Unavail able Nelia Sullivan PharmD Unavailable [phone] Reason for Visit * Reason Onset Date Comments Dental Exam 08/24/2023 Encounter Details Date Type Department Care Team (Late st Contact Info) Description 08/24/2023 Telephone [facility] ADULT DENTAL [address] [place] [address] Libby Siddiqui, DDS [address] [place] [address] Dental Exam Social History Tobacco Use Types Packs/Day Years [...] encounter Miscellaneous Notes * Telephone Encounter - Shana Lopez - 08/24/2023 10:17 AM EDT Patient is on wiating list for new patient appt. However he has a tooth that is mobile but no pain.Discomfort when eating because it feels very loose. On PAR side no appts available She is looking to be scheduled to take a look a the tooth DR documented in this encounter Plan of Treatment Upcoming Encounters Date Type Department Care Team (Late st Contact Info) Description 04/17/2024 9:30 AM EST Clinical Support [facility] MEDICINE [address] [place] [address] Acacia Chakraborty, RN 04/24/2024 2:30 PM EDT Office Visit [facility] ADULT DENTAL [address] [place] [address] Peter Peña DDS [address] [place] [address] 05/09/2024 10:30 AM EDT Medication Management [facility] [address] [place] [address] Nelia Sullivan, [place] [address] 05/28/2024 9:45 AM EDT Office Visit [facility] [address] [place] [address] Radha Jamison DO [address] [place] [address] documented as of this encounter Goals Goal Patient Goal Type Associated Problems Recent Progress Patient-Stated? Author Hemoglobin A1c < 7 Result Component 10.6( 12:27 PM EST) No Abdias Murillo, Camron documented as of this encounter Visit Diagnoses Not on filedocumented in this encounter Additional Health Concerns Assessment Noted Time PHQ-9 Depression Total Score: 4 11/09/19 23 11:27 AM EDT documented as of this encounter Care Teams Linderman Machine Operator Relationship Specialty Start Date End [place] [address] PCP - General Family Medicine 01/26/12 Abdias Murillo, [place] [address] Pharmacist Internal Medicine 03/21/22 08/30/23 Nelia Sullivan, Camron [facility]reet [facility] [place] [address] Pharmacist Internal Medicine 08/31/23 Laurel Monterroso Buckle Frame ShaperMedical Device Sales 10/27/22 Saige Aguilar 09/26/23 documented as of this encounter
--- OUTSIDE RECORDS SUMMARY | 2024-04-04 12:06 | XMS_ITS | Encounter Summary ---
Author Organization [employer] Address [address] [facility] 7t [place] [address] Care Team Providers Care Coffee Brewer Name Role Phone Radha Jamison DO Primary Care Provider [phone] Abdias Murillo PharmD Unavailable Unavail able Nelia Sullivan PharmD Unavailable [phone] Reason for Visit * Reason Comments Med Refill Encounter Details Date Type Department Care Team (Late st Contact Info) Description 06/06/2023 Refill [facility] 230 [place] [address] Radha Jamison DO 230 [place] [address] Chronic bilateral low back pain, unspecified whether [...] enough money to get more: Never True 10/ Transportation Answer Date Recorded In the past [...] Description 04/17/2024 9:30 AM EST Clinical Support [facility] MED[facility] [address] [place] [address] Acacia Chakraborty RN 04/24/2024 2:30 PM EDT Office Visit [facility] ADULT DENTAL [address] [place] [address] Peter Peña DDS [address] [place] [address] 05/09/2024 10:30 AM EDT Medication Management [address] [address] Nelia Sullivan PharmD [address] [place] [address] 05/28/2024 9:45 AM EDT Office Visit [address] [address] Radha Jamison DO 230 [place] [address] documented as of this encounter Goals Goal [...] documented as of this encounter Care Teams Coffee Brewer Relationship Specialty Start Date End Date Radha Jamison DO [address] [place] [address] PCP - General Family Medicine 01/26/12 Abdias Murillo, PharmD [address] [place] [address] Pharmacist Internal Medicine 03/21/22 08/30/23 Nelia Sullivan PharmD [address] [place] [address] Pharmacist Internal Medicine 08/31/23 Laurel Monterroso Chucking Machine Set Up OperatorNatural Resource Officer 10/27/22 Saige Aguilar 09/26/23 documented as of this encounter
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
--- OUTSIDE RECORDS SUMMARY | 2024-04-04 12:06 | XMS_ITS | Encounter Summary ---
Author Organization [facility] Address 75 [facility] 7t [place] [address] Care Team Providers Care Marketing Strategy Manager Name Role Phone Radha Jamison DO Primary Care Provider Abdias Murillo PharmD Unavailable Unavail able Nelia Sullivan PharmD Unavailable [phone] Reason for Visit * Reason Comments Med Refill Encounter Details Date Type Department Care Team (Late st Contact Info) Description 10/25/2022 Refill [facility] MEDICINE [address] [place] [address] Radha Jamison DO 230 [place] [address] Chronic bilateral low back pain, unspecified whether [...] Encounters Date Type Department Care Team (Late Contact Info) Description 04/17/2024 9:30 AM EST Clinical Support [facility] MEDICINE [address] [place] [address] Acacia Chakraborty RN 04/24/2024 2:30 PM EDT Office Visit [facility] ADULT DENTAL 230 [place] [address] Peter Peña DDS 230 [place] [address] 05/09/2024 10:30 AM EDT Medication Management [facility] MEDICINE [address] [place] [address] Nelia Sullivan PharmD 230 [facility] [place] [address] 05/28/2024 9:45 AM EDT Office Visit [facility] MEDICINE [address] [place] [address] [place] [address] documented as of this encounter Goals Goal [...] documented as of this encounter Care Teams Marketing Strategy Manager Relationship Specialty Start Date End [place] [address] PCP - General Family Medicine 01/26/12 Abdias Murillo, PharmD [address] [place] [address] Pharmacist Internal Medicine 03/21/22 08/30/23 [place] [address] Pharmacist Internal Medicine 08/31/23 Laurel Monterroso Bilingual Speech TherapistCook Manager 10/27/22 Saige Aguilar 09/26/23 documented as of this encounter
--- OUTSIDE RECORDS SUMMARY | 2024-04-04 12:06 | XMS_ITS | Encounter Summary ---
Author Organization [facility] Address 75 [facility] 7t [place] [address] Care Team Providers Care Pear Picker Name Role Phone Radha Jamison DO Primary Care Provider [phone] Abdias Murillo PharmD Unavailable Unavail able Nelia Sullivan PharmD Unavailable [phone] Reason for Visit * Reason Comments Med Refill Encounter Details Date Type Department Care Team (Late st Contact Info) Description 08/11/2022 Refill [facility] 230 [place] [address] Radha Jamison DO 230 [place] [address] Anemia, unspecified type Social History Tobacco Use Types [...] Orientation Straight 12/13/2021 10 :16 AM EDT COVID-19 Exposure Response Date Recorded In the last 10 days, have yo u been in contact with someone who was confirmed or suspected to have Coronavirus/COVID-19? No / Unsure 08/08/2022 9:38 AM EDT documented as of this encounter Miscellaneous Notes * Telephone Encounter - Mary Reynolds - 08/11/2022 11:21 AM EDT Pharmacy [facility] attempted outreach call on 08/11/22 for CDTM - Diabetes appointment; however, unable to reach patient. LVM for patient to contact Mary Reynolds at [phone]. documented in this encounter Plan of Treatment Upcoming Encounters Date Type Department Care Team (Late st Contact Info) Description 04/17/2024 9:30 AM EST Clinical Support [facility] [address] [place] [address] Acacia Chakraborty, RN 04/24/2024 2:30 PM EDT Office Visit [facility] ADULT DENTAL [address] [place] [address] Peter Peña DDS [address] [place] [address] 05/09/2024 10:30 AM EDT Medication Management [facility] [address] [place] [address] Nelia Sullivan PharmD [address] [place] [address] 05/28/2024 9:45 AM EDT Office Visit [address] [address] Radha Jamison DO [address] [place] [address] documented as of this encounter Goals Goal Patient Goal Type Associated Problems Recent Progress Patient-Stated? Author Hemoglobin A1c < 7 Result Component 10.6( 12:27 PM EST) No Abdias Murillo, PharmD documented as of this encounter Visit Diagnoses Diagnosis Anemia, unspecified type documented in this encounter Additional Health Concerns Assessment Noted Time PHQ-9 Depression Total Score: 14 023 12:00 PM EST documented as of this encounter Care Teams Pear Picker Relationship Specialty Start Date End Date Radha Jamison DO [address] [place] [address] PCP - General Family Medicine 01/26/12 Abdias Murillo, PharmD 230 [place] [address] Pharmacist Internal Medicine 03/21/22 08/30/23 Nelia Sullivan, KeithD [address] [place] [address] Pharmacist Internal Medicine 08/31/23 Laurel Monterroso Tax ExpertMobile Equipment Mechanic 10/27/22 Saige Aguilar 09/26/23 documented as of this encounter
--- OUTSIDE RECORDS SUMMARY | 2024-04-04 12:06 | XMS_ITS | Encounter Summary ---
Author Organization [employer] Address 75 [facility] 7t [place] [address] Care Team Providers Care Wireless Internet Installer Name Role Phone Radha Jamison DO Primary Care Provider [phone] Abdias Murillo PharmD Unavailable Unavail able Nelia Sullivan PharmD Unavailable [phone] Reason for Visit * Reason Comments Med Refill Encounter Details Date Type Department Care Team (Late st Contact Info) Description 08/30/2023 Refill [facility] MED[facility] 230 [place] [address] Radha Jamison DO 230 [place] [address] Chronic bilateral low back pain, unspecified whether [...] Description 04/17/2024 9:30 AM EST Clinical Support [address] [address] Acacia Chakraborty, JOANN 04/24/2024 2:30 PM EDT Office Visit [facility] ADULT DENTAL [address] [place] [address] Peter Peña DDS [address] [place] [address] 05/09/2024 10:30 AM EDT Medication Management [address] [address] Nelia Sullivan, PharmD 230 [place] [address] 05/28/2024 9:45 AM EDT Office Visit [address] [address] Radha Jamison DO 230 [place] [address] documented as of this encounter Goals Goal [...] documented as of this encounter Care Teams Wireless Internet Installer Relationship Specialty Start Date End Date Radha Jamison DO 230 [place] [address] PCP - General Family Medicine 01/26/12 Abdias Murillo PharmD [address] [place] [address] Pharmacist Internal Medicine 03/21/22 08/30/23 Nelia Sullivan PharmD [address] [place] [address] Pharmacist Internal Medicine 08/31/23 Laurel Monterroso Record Clerk SalespersonCorn Cutter 10/27/22 Saige Aguilar 09/26/23 documented as of this encounter
--- OUTSIDE RECORDS SUMMARY | 2024-04-04 12:06 | XMS_ITS | Encounter Summary ---
Author Organization [employer] Address [address] [facility] 7t [place] [address] Care Team Providers Care Fruit And Vegetable Factory Worker Name Role Phone Radha Jamison DO Primary Care Provider [phone] Abdias Murillo PharmD Unavailable Unavail able Nelia Sullivan PharmD Unavailable [phone] Reason for Visit * Reason Onset Date Comments Durable Medical Equipment 09/08/2022 Encounter Details Date Type Department Care Team (Late st Contact Info) Description 09/08/2022 Telephone [facility] MEDICINE [address] [place] [address] Radha Jamison DO 230 [place] [address] Durable Medical Equipment Social History Tobacco Use Types Packs/Day Years [...] encounter Miscellaneous Notes * Telephone Encounter - Griselda Rinaldi LPN - 09/08/2022 11:36 AM EDT Please read message below and advise * Telephone Encounter - Ciera Carson - 09/08/2022 11:30 AM EDT Tc from pt requesting a new script for BP machine. States the one she has right now is not working. Please contact pt at [phone] documented in this encounter Plan of Treatment Upcoming Encounters Date Type Department Care Team (Late st Contact Info) Description 04/17/2024 9:30 AM EST Clinical Support [facility] MEDICINE [address] [place] [address] Acacia Chakraborty, RN 04/24/2024 2:30 PM EDT Office Visit [facility] ADULT DENTAL [address] [place] [address] Peter Peña DDS [address] [place] [address] 05/09/2024 10:30 AM EDT Medication Management [facility] MEDICINE [address] [place] [address] Nelia Sullivan PharmD [address] [place] [address] 05/28/2024 9:45 AM EDT Office Visit [address] [address] Radha Jamison DO [address] [place] [address] documented as of this encounter Goals Goal Patient Goal Type Associated Problems Recent Progress Patient-Stated? Author Hemoglobin A1c < 7 Result Component 10.6( 12:27 PM EST) No Abdias Murillo, KeithD documented as of this encounter Visit Diagnoses Not on filedocumented in this encounter Additional Health Concerns Assessment Noted Time PHQ-9 Depression Total Score: 14 023 12:00 PM EST documented as of this encounter Care Teams Fruit And Vegetable Factory Worker Relationship Specialty Start Date End Date Radha Jamison DO [address] [place], [place] [address] [address] PCP - General Family Medicine 01/26/12 Abdias Murillo, KeithD [address] [place] [address] Pharmacist Internal Medicine 03/21/22 08/30/23 Nelia Sullivan, KeithD [address] [place] [address] Pharmacist Internal Medicine 08/31/23 Laurel Monterroso Music ProfessorRetail Store Associate 10/27/22 Saige Aguilar 09/26/23 documented as of this encounter
--- OUTSIDE RECORDS SUMMARY | 2024-04-04 12:06 | XMS_ITS | Encounter Summary ---
Author Organization [employer] Address 75 [facility] 7t [place] [address] Care Team Providers Care Community Planner Name Role Phone Radha Jamison DO Primary Care Provider [phone] Abdias Murillo PharmD Unavailable Unavail able Nelia Sullivan PharmD Unavailable Reason for Visit * Reason Comments Med Refill Encounter Details Date Type Department Care Team (Late st Contact Info) Description 11/08/2022 Refill [facility] MEDICINE 230 [place], [place] [phone] Radha Jamison DO 230 [place] [address] Social History Tobacco Use Types Packs/Day Years Used Date Smoking Tobacco: Some Days Cigarettes Passive Smoke Exposure: Current Smokeless Tobacco: Never Alcohol Use Standard Drinks/Week Comments Never 0 (1 standard drink = 0.6 oz pur e alcohol) Depression Answer Date Recorded Patient Health Questionnaire-9 Score 4 11/08/2022 Depression Answer Date Recorded Patient Health Questionnaire-2 [...] Telephone Encounter - Radha Jamison DO - 11/09/2022 3:11 PM EDT Smaller pen needles sent. documented in this encounter Plan of Treatment Upcoming Encounters Date Type Department Care Team (Late st Contact Info) Description 04/17/2024 9:30 AM EST Clinical Support [facility] MEDICINE [address] [place] [address] Acacia Chakraborty RN 04/24/2024 2:30 PM EDT Office Visit [facility] ADULT DENTAL [address] [place] [address] Peter Peña DDS [address] [place] [address] 05/09/2024 10:30 AM EDT Medication Management [facility] MEDICINE [address] [place] [address] Nelia Sullivan PharmD [address] [place] [address] 05/28/2024 9:45 AM EDT Office Visit [address] [address] Radha Jamison DO [address] [place] [address] documented as of this encounter Goals Goal [...] documented as of this encounter Care Teams Community Planner Relationship Specialty Start Date End Date Radha Jamison DO [address] [place] [address] PCP - General Family Medicine 01/26/12 Abdias Murillo, PharmD [address] [place] [address] Pharmacist Internal Medicine 03/21/22 08/30/23 Nelia Sullivan, PharmD [address] [place] [address] Pharmacist Internal Medicine 08/31/23 Laurel Monterroso Primary School PrincipalPatrol Deputy Sheriff 10/27/22 Saige Aguilar 09/26/23 documented as of this encounter
--- OUTSIDE RECORDS SUMMARY | 2024-04-04 12:06 | XMS_ITS | Encounter Summary ---
Author Organization [facility] Address 75 [facility] 7t [place] [address] Care Team Providers Care Warehouse Production Worker Name Role Phone Radha Jamison DO Primary Care Provider DelAbdias hardy PharmD Unavailable Unavail able Nelia Sullivan PharmD Unavailable Reason for Visit * Reason Comments Med Refill Encounter Details Date Type Department Care Team ([facility] Contact Info) Description 11/10/[address] [facility] MEDICINE [address] [place] [address] Radha Jamison DO [address] [place] [address] Chronic gastroesophageal reflux disease Social History Tobacco Use Types Packs/Day Years [...] [facility] MEDICINE [address] [place] [address] Acacia Chakraborty, JOANN 04/24/2024 2:30 PM EDT Office Visit [facility] ADULT DENTAL [address] [place] [address] Peter Peña DDS [address] [place] [address] 05/09/2024 10:30 AM EDT Medication Management [facility] MEDICINE [address] [place] [address] Nelia Sullivan PharmD [address] [place] [address] 05/28/2024 9:45 AM EDT Office Visit [facility] MEDICINE [address] [place] [address] Radha Jamison DO [address] [place] [address] documented as of this encounter Goals Goal Patient Goal Type Associated Problems Recent Progress Patient-Stated? Author Hemoglobin A1c < 7 Result Component 10.6( 12:27 PM EST) No Abdias Murillo PharmD documented as of this encounter Visit Diagnoses Diagnosis Chronic gastroesophageal reflux disease documented in this encounter Additional Health Concerns Assessment Noted Time PHQ-9 Depression Total Score: 4 11/09/19 23 11:27 AM EDT documented as of this encounter Care Teams Warehouse Production Worker Relationship Specialty Start Date End Date Radha Jamison DO [address] [place] [address] PCP - General Family Medicine 01/26/12 Abdias Murillo, PharmD [address] [place] [address] Pharmacist Internal Medicine 03/21/22 08/30/23 Nelia Sullivan, KeithD [address] [place] [address] Pharmacist Internal Medicine 08/31/23 Laurel Monterroso Asian Art CuratorTorsion Spring Coiling Machine Setter 10/27/22 Saige Aguilar 09/26/23 documented as of this encounter
--- OUTSIDE RECORDS SUMMARY | 2024-04-04 12:06 | XMS_ITS | Clinical Summary ---
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 clopidogrel (Plavix) 75 MG tablet Take 1 tablet by mouth at bed time. Active Mometasone Furoate (Asmanex HFA) 100 MCG/ACT aerosol Inhale 2 puffs 2 times daily. INHALE 2 PUFFS BY MOUTH TWICE DAILY. RINSE MOUTH AFTER USING 13 g 11 Active acetaminophen (Tylenol 8 Hour) 650 MG ER tablet Take 1 tablet (650 mg) by mouth every 8 (eight) hours. 60 tablet 2 Active hydrOXYzine pamoate (Vistaril) 25 MG capsuleIndications :Mood disorder (CMS/HCC) Take 1 capsule (25 mg) by mouth every 6 (six) hours if needed for anxiety. 60 capsule 2 Active Additional Information Patient not taking.Reported on 03/06/2024 Sennosides (Senna) 8.6 MG capsule Take 2 capsules by mouth if needed at bedtime (constipation). 60 capsule 2 Active Additional Information Patient not taking.Reported on 03/05/2024 Diclofenac Sodium 1 % gel Apply 2 g topically if needed in the morning, at noon, in the evening, and at bedtime (pain). 150 g 2 Active Additional Information Patient not taking.Reported on 03/05/2024 Blood Pressure Monitoring (Omron 3 Series BP Monitor) deviceIndications: Essential hypertension Use as directed to check BP once daily 1 each Active pen needle 32G x 4 mm misc Use 1 daily for insulin injection 100 each 3 024 08/31 Active gabapentin (Neurontin) 600 MG tablet Take 1 tablet (600 mg) by mouth 2 times daily. Do not start before October 05, 2023. 60 tablet 11 024 10/04 Active omeprazole (PriLOSEC) [address] capsule TAKE 2 CAPSULES BY MOUTH TWICE DAILY IN THE MORNING AND EVENING WITH FOOD Active NIFEdipine XL (Procardia XL) 90 MG 24 hr tabletIndications: Essential hypertension Take 1 tablet (90 mg) by mouth Once per day. Do not crush, chew, or split. 90 tablet 3 Active lisinopril 40 MG tabletIndications: Seasonal allergic rhinitis due to other allergic trigger Take 1 tablet (40 mg) by mouth in the morning. 90 tablet 1 Active pioglitazone (Actos) 15 MG tabletIndications: Type 2 diabetes mellitus with hyperglycemia, with long-term current use of insulin ([facility]) TAKE 1 TABLET BY MOUTH EVERY MORNING 90 tablet 3 Active SUMAtriptan (Imitrex) 25 MG tablet Take 1 tablet (25 mg) by mouth 1 (one) time if needed for migraine for up to 1 dose. May repeat dose once in 2 hours if no relief. Do not exceed 2 doses in 24 hours. 9 tablet 2 Active loratadine (Claritin) 10 MG tablet Take 1 tablet (10 mg) by mouth Once per day. 90 tablet 3 024 12/20 Active fluticasone (Flonase) 50 MCG/ACT nasal spray Administer 2 sprays into each nostril Once per day. Shake gently. Before first use, prime pump. After use, clean tip and replace cap. 48 g 2 Active isosorbide mononitrate ER (Imdur) 30 MG 24 hr tablet Take 30 mg by mouth in the morning. Active escitalopram (Lexapro) 20 MG tabletIndications: Depression, unspecified depression type TAKE 1 TABLET BY MOUTH EVERY EVENING 30 tablet 5 Active Alcohol Swabs (Alcohol Prep) 70 % pads USE 1 THREE TIMES DAILY AND NEEDED 100 each 11 Active nitroglycerin (Nitrostat) 0.[address] 1 tablet (0.4 mg) under the tongue every 5 (five) minutes if needed for chest pain. 30 tablet 024 02/10 Active Dulaglutide (Trulicity) 0.75 MG/0.5ML solution auto-injectorIndic ations: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, with long-term current use of insulin, macular edema presence unspecified, unspecified laterality (CMS/HCC) Inject 0.5 mL (0.75 mg) under the skin 1 (one) time per week. 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 15 mL 2 Active ezetimibe (Zetia) 10 MG tablet Take 1 tablet (10 mg) by mouth Once per day. 90 tablet 1 Active atorvastatin (Lipitor) 80 MG tabletIndications: Hyperlipidemia, unspecified hyperlipidemia type Take 1 tablet (80 mg) by mouth at bedtime. 90 tablet 1 Active ferrous sulfate (FeroSul) 325 (65 Fe) MG tabletIndications: Anemia, unspecified type TAKE 1 TABLET BY MOUTH TWICE DAILY IN THE MORNING AND AT BEDTIME 180 tablet 1 Active docusate sodium (Colace) 100 MG capsuleIndications :Anemia, unspecified type TAKE 1 CAPSULE BY MOUTH TWICE DAILY IN THE MORNING AND IN THE EVENING FOR CONSTIPATION 180 capsule 1 Active carvedilol (Coreg) 25 MG tabletIndications: Hypertension, unspecified type TAKE 1 TABLET BY MOUTH TWICE DAILY IN THE MORNING AND IN THE EVENING WITH FOOD 180 tablet 1 Active hydroCHLOROthiazid e (HYDRODiuril) 50 MG tablet Take 1 tablet (50 mg) by mouth Once per day. 90 tablet 1 Active Continuous Glucose Architectural Draftsman (FreeStyle Jenn 3 [place]) device 1 each 3 times daily. Use daily as directed for CGM 1 each Active Continuous Glucose Sensor (FreeStyle Jenn 3 Plus Sensor) misc 1 each Once per day. 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 30 tablet 025 03/05 Active Varenicline Tartrate, Starter, (Chantix Starting Month ) 0.5 MG X 11 & 1 MG X 42 tablet therapy pack Take 0.5 mg by mouth Once per day for 3 days, THEN 0.5 mg 2 times daily for 4 days, THEN 1 mg 2 times daily. 53 each 025 04/23 Active varenicline (Chantix) 1 MG tablet Take 1 tablet (1 mg) by mouth 2 times daily. Take with full glass of water. 60 tablet 5 Active glucose blood (FreeStyle Precision Julian Test) test strip Use to test blood sugar 3 times daily 100 each 025 03/05 Active TRUEplus Lancets 33G [facility] [place] TEST BLOOD SUGAR UP TO THREE TIMES DAILY DIRECTED 100 each Active metFORMIN (Glucophage) 1000 MG tabletIndications: Type 2 diabetes mellitus with hyperglycemia, with long-term current use of insulin (CMS/HCC) TAKE 1 TABLET BY MOUTH TWICE DAILY IN THE MORNING AND IN THE EVENING WITH FOOD 180 tablet 1 Active amitriptyline (Elavil) 50 MG tabletIndications: Other chronic pain TAKE 1 TABLET BY MOUTH AT BEDTIME 30 tablet 3 025 Active mirtazapine (Remeron) 45 MG tabletIndications: Mood disorder (CMS/HCC) TAKE 1 TABLET BY MOUTH AT BEDTIME 30 tablet 3 025 Active oxyCODONE (Roxicodone) 5 MG immediate release tabletIndications: Chronic bilateral low back pain, unspecified whether sciatica present Take 1 tablet (5 mg) by mouth every 8 (eight) hours if needed for severe pain for up to 7 days. 21 tablet 025 04/10 Active aspirin (Aspirin Low Dose) 81 MG EC tabletIndications: Hypertension, unspecified type TAKE 1 TABLET BY MOUTH EVERY EVENING 90 tablet 025 Active Multiple Vitamin (Multivitamin) tabletIndications: Hypertension, unspecified type TAKE 1 TABLET BY MOUTH EVERY MORNING WITH FOOD 90 tablet 025 Active amitriptyline (Elavil) 50 MG tabletIndications: Other chronic pain TAKE 1 TABLET BY MOUTH AT BEDTIME 30 tablet 3 024 03/21 Discontinued mirtazapine (Remeron) 45 MG tabletIndications: Mood disorder (CMS/HCC) TAKE 1 TABLET BY MOUTH AT BEDTIME 30 tablet 3 024 03/21 Discontinued aspirin (Aspirin Low Dose) 81 MG EC tabletIndications: Hypertension, unspecified type TAKE 1 TABLET BY MOUTH EVERY EVENING 90 tablet 024 04/03 Discontinued( Reorder (will not trigger notification to Pharmacy)) Multiple Vitamin (Multivitamin) tabletIndications: Hypertension, unspecified type TAKE 1 TABLET BY MOUTH EVERY MORNING WITH FOOD 90 tablet 024 04/03 Discontinued( Reorder (will not trigger notification to Pharmacy)) oxyCODONE (Roxicodone) 5 MG immediate release tabletIndications: Chronic bilateral low back pain, unspecified whether sciatica present Take 1 tablet (5 mg) by mouth See administration instructions for 28 days. May take 1 tablets up to 5 times daily as needed for pain. Do not start before February 06, 2024. 140 tablet 024 03/07 Discontinued oxyCODONE (Roxicodone) 5 MG immediate release tabletIndications: Chronic bilateral low back pain, unspecified whether sciatica present Take 1 tablet (5 mg) by mouth every 6 (six) hours if needed for severe pain for up to 7 days. 28 tablet 025 03/19 Discontinued( Reorder (will not trigger notification to Pharmacy)) oxyCODONE (Roxicodone) 5 MG immediate release tabletIndications: Chronic bilateral low back pain, unspecified whether sciatica present Take 1 tablet (5 mg) by mouth every 6 (six) hours if needed for severe pain for up to 7 days. 28 tablet 025 03/26 Discontinued( Reorder (will not trigger notification to Pharmacy)) oxyCODONE (Roxicodone) 5 MG immediate release tabletIndications: Chronic bilateral low back pain, unspecified whether sciatica present Take 1 tablet (5 mg) by mouth every 8 (eight) hours if needed for severe pain for up to 7 days. 21 tablet 025 04/03 Discontinued( Reorder (will not trigger notification to Pharmacy)) Active Problems Problem Noted Date Diagnosed Date Left lower quadrant abdominal pain 03/19/2024 Assessment & Plan (03/19/2024 10:31 AM EST): Exam concerning for non-reducible left inguinal hernia. Need to r/o incarceration. No evidence of bowel obstruction. Vitals stable. Pt agrees to go to ER for further evaluation. Fibromuscular dysplasia of renal artery 11/02/19 24 Nonadherence to medication 09/28/2023 Proteinuria 09/28/2023 Vitamin D deficiency 09/28/2023 Carotid artery stenosis 05/11/2023 Assessment & Plan (05/11/2023 10:04 AM EDT): S/p R CEA NOV 2022 -cont RF modification -cont aspirin and statin daily -f/u with vascular as scheduled, due SEP 2023 Healthcare maintenance 05/11/2023 Assessment & Plan (05/11/2023 10:12 AM EDT): -she declines flu vaccine -she declines COVID vaccine -encouraged RSV vaccine -s/p pneumovax Nov 2013 -she declines PCV20 -she declines Tdap -encouraged shingrix vaccine -Hep A immune -she declines Hep B vaccine -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 2014 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, advised schedule f/u, contact info given -mammo BIRADS 13 SEP 2021, appt next mos -colonoscopy with melanosis coli MAY 2018 -STI/HIV screen negative July 2022 Chronic constipation 11/08/2022 Multiple pulmonary nodules 05/04/2022 Assessment & Plan (05/11/2023 10:06 AM EDT): -CT chest with old granulomatous disease, stable LLL nodule, and new 2 mm LLL JAN 2020, referred for repeat Spinal stenosis, lumbar 05/04/2022 Assessment & Plan (05/11/2023 10:13 AM EDT): With worsening pain -MRI L-spine with grade 1 anterolisthesis at L-5 2/2 advanced facet arthropathy, moderate central canal stenosis, mild foraminal narrowing L3-L4 and L5-S1, moderate foraminal stenosis with L4 nerve root encroachment Apr 2018, referred for repeat -L-spine x-rays with grade 1 anterolisthesis and facet arthropathy Mar 2018 -EMG/NCS with 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 Apr 2018 -cont gabapentin 800mg TID -cont amitriptyline nightly -cont tylenol TID -cont naprosyn BID prn -cont baclofen to help with mm spasm -cont lidocaine patches as needed -cont oxycodone as prescribed for severe pain, f/u with COT RN as scheduled -referred to pain mgmt for eval -will re-refer to NS prn -advised rtc if sx worsen or go to ED if any weakness or loss of sensation, she agrees with plans Chronic allergic rhinitis 05/04/2022 Chronic gastroesophageal reflux disease 05/05/19 23 Diabetic retinopathy 05/04/2022 Peripheral arterial disease 01/24/2022 Assessment & Plan (05/11/2023 10:01 AM EDT): -s/p L femoral/popliteal bypass MAY 2020, s/p R angioplasty with stent placement MAY 2021 -f/u with vascular as scheduled, due SEP 2023 Status post femoral-popliteal bypass surgery 01/2022 Presbyopia 09/29/2015 Coronary arteriosclerosis 05/14/2015 Chronic migraine 05/14/2015 Assessment & Plan (05/11/2023 10:06 AM EDT): -cont amitriptyline nightly -cont imitrex prn acute migraine -CT head with no acute findings APR 2022 -f/u with neurology prn Anemia 12/04/2014 Aortic stenosis 12/04/2014 Resistant hypertension 12/04/2014 Assessment & Plan (12/28/2023 10:46 AM EST): I advise low Na diet I increased her hydrochlorothiazide to 25mg daily BMP ordered for monitoring Continue to f/u with PCP and CDTM Assessment & Plan (05/11/2023 9:59 AM EDT): BP elevated, currently asx -cont coreg BID and hydralazine TID -cont lisinopril, HCTZ, and norvasc daily -cont home BP monitoring -will d/w CDTM pharmacist re: possible med changes -renal US/doppler with ?renal artery stenosis, CTA negative APR 2021, SEP 2022 -referred to renal for med recommendations -Cr/GFR nml with moderate urine microalbumin July 2022->repeat prior to next visit -there is EKG in chart -optho as above Assessment & Plan (03/18/2022 12:21 PM EST): BP controlled -cont home BP monitoring -cont coreg BID and hydralazine TID -cont lisinopril, HCTZ, and norvasc daily -Cr, GFR nml w/ moderate urine microalbumin wnl JUNE 2020->repeat prior to next visit -there is EKG in chart -optho as above Female stress incontinence 12/04/2014 Hyperlipidemia 12/04/2014 Assessment & Plan (05/11/2023 10:00 AM EDT): LDL improved Jul 2022 -encouraged lipitor nightly -check lipids prior to next visit Mild persistent asthma 12/04/2014 Assessment & Plan (05/11/2023 10:05 AM EDT): With allergic rhinitis and LORE -increase asmanex to 2 puffs BID as rx'd -cont albuterol as needed -cont claritin and flonase daily -she refuses CPAP use Mood disorder 12/04/2014 Assessment & Plan (05/11/2023 10:00 AM EDT): With anxiety and depression -she denies any current SI/HI -she has the number for crisis and contracts for safety -cont remeron and trazodone nightly -cont lexapro daily -cont hydroxyzine prn acute anxiety -she declines referral to therapist Assessment & Plan (03/18/2022 12:20 PM EST): With depression and insomnia -she denies any current SI/HI -she has the number for crisis and contracts for safety -cont remeron and trazodone nightly -cont lexapro daily -she will meet w/ [facility] clinician to check status of RV referral -she will meet w/ HIM RN re: 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 Obstructive sleep apnea 12/04/2014 Tobacco dependence 12/04/2014 Type 2 diabetes mellitus 12/04/2014 Assessment & Plan (12/28/2023 10:47 AM EST): I advise diabetic diet I added to her medications jardiance 10mg daily, patient reports she did tried Trulicity but she lost a lot of weight and it was stopped F/u with CDTM and PCP Assessment & Plan (05/11/2023 9:55 AM EDT): A1c uncontrolled -advised restart tresiba 10 units daily -cont metformin BID -cont actos daily -restart trulicity weekly -referred to endo for f/u eval -encouraged regular BS monitoring, rx for CGM re-sent -cont aspirin, statin, and lisinopril daily -re-referred for optho eval -foot exam next visit* Assessment & Plan (03/18/2022 12:21 PM EST): A1c down from 12.6 -cont tresiba daily -cont trulicity weekly -cont metformin and actos as rx'd -referred to [facility] pharm for CTDM -cont regular FS monitoring and bring glucometer to all visits for review -cont aspirin, statin, and lisinopril daily -referred to optho -foot exam next visit* Resolved Problems Problem Noted Date Diagnosed Date Resolved Date Elevated troponin 11/02/2023 12/21/2023 Hypertension 11/02/2023 12/21/2023 Hypertensive crisis 11/02/2023 12/21/19 24 Hypertensive emergency 07/27/202309/27 Assessment & Plan (07/27/2023 8:51 AM EDT): Pt with chronic elevated BP but concerning pauly today likely in the setting of not taking her BP meds yet BP check twice 220/90 And then 210/90 in RA -EKG today NSR, HR 66x;,Qtc 442 , noted TWI in lead V5,V6,,aVL, ST depression in lead II ,these findings were not evaluated in EKG from 07/06/2023 -pt takes Hydralazine 25 mg TID, amlopdine 10 mg daily. Carvedilol 25 mg BID,lisinopril 40 mg ,aldactazide 25/25 daily -gave clonidine 0.1 mg in office x1 --from RN info rechecked BP after med was in 185s -given significant abnormalities on EKG that are new when compare w 06/2023 EKG referred pt to ED -pt agreed to have further evaluation and r/o CAD -Pt has PCP apt 08/11/2023 -advised in length pt to make sure to take all her meds consistently at same time of the day and to continue care w corrugator operator and PCP ------ Addendum : EMT came and shrimp picker pt but once she was taken to ambulance pt decide not to go to ED and signed leave AMA 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 05/04/2020 03/18/2022 Encounters * This document contains information received from the source organization and may not represent a complete record from that organization. Date Type Department Care Team Description 04/03/2024 10:30 AM EST Clinical Support [facility] [address] [place] [address] Acacia Chakraborty, waistband setter bilateral low back pain, unspecified whether sciatica present (Primary Dx) 04/03/2024 Refill [facility] [address] [facility] [place] [address] Jurcsak, Radha, DO Hypertension, unspecified type 04/03/2024 Refill [facility] [address] [place] [address] Acacia Chakraborty, waistband setter bilateral low back pain, unspecified whether sciatica present 04/03/2024 Travel 04/03/2024 Refill [facility] [address] [place] [address] Nelia Sullivan, PharmD 03/26/2024 Refill [facility] [address] [place] [address] Paramjit Arias MD Chronic bilateral low back pain, unspecified whether sciatica present 03/26/2024 Telephone [facility] [address] [place] [address] Radha Jamison, Medication Question 03/26/2024 Refill [facility] [address] [place] [address] Radha Jamison, Chronic bilateral low back pain, unspecified whether sciatica present 03/21/2024 Refill [facility] [address] [place] [address] Radha Jamison, Other chronic pain; Mood disorder ([facility]/HCC) 03/19/2024 10:00 AM EST Office Visit [facility] [address] [place] [phone] Anna Jenkins MD Left lower quadrant abdominal pain (Primary Dx) 03/19/2024 9:00 AM EST Clinical Support [facility] [address] [place] [id number] Acacia Chakraborty, waistband setter bilateral low back pain, unspecified whether sciatica present (Primary Dx) 03/19/2024 Telephone [facility] [address] [place] [phone] Radha Jamison DO [facility] ED expect 03/19/2024 Refill [facility] [address] [place] [address] Radha Jamison DO Chronic bilateral low back pain, unspecified whether sciatica present 03/19/2024 Refill [facility] [address] [place] [id number] Acacia Chakraborty RN Chronic bilateral low back pain, unspecified whether sciatica present 03/19/2024 Travel 03/08/2024 Telephone [facility] [address] [facility] [place] [address] Nelia Sullivan PharmD Prior Authorization (Jenn 3 reader) 03/06/2024 Refill [facility] [address] [facility] [place] [address] Radha Jamison DO Chronic bilateral low back pain, unspecified whether sciatica present 03/06/2024 Telephone [facility] [address] [facility] [place] [address] Nelia Sullivan PharmD Prior Authorization (Jenn [address] [place] ([facility])) 03/06/2024 Telephone [facility] [address] [facility] [place], [place] [address] Radha Jamison, DO Med Refill 03/05/2024 10:00 AM EST Clinical Support [facility] [address] [facility] [place] [address] Acacia Chakraborty RN Spinal stenosis of lumbar region, unspecified whether neurogenic claudication present (Primary Dx) 03/05/2024 Telephone [facility] [facility] [place] [address] Radha Jamison DO Med Refill 03/05/2024 Telephone [facility] [facility] [place] [address] Acacia Chakraborty RN Oxy count discrepancy 03/05/2024 Travel 02/29/2024 Refill [facility] [facility] [place] [address] Radha Jamison DO Chronic bilateral low back pain, unspecified whether sciatica present 02/29/2024 Telephone [facility] [facility] [place], [place] [address] Radha Jamison DO Lab Orders 02/27/2024 Telephone [facility] [address] [facility] [place] [address] Radha Jamison DO Med Refill 02/26/2024 Telephone [facility] [address] [place] [address] Radha Jamison DO ER Follow-up 02/23/2024 Refill [facility] [address] [facility] [place] [address] Radha Jamison DO Hypertension, unspecified type 02/23/2024 Telephone [facility] [address] [facility] [place] [address] Radha Jamison DO Nurse Triage 02/21/[address] [address] aRdha Jamison DO Appointment Request 02/20/2024 9:00 AM EST Clinical Support [address] [address] Acacia Chakraborty RN Spinal stenosis of lumbar region, unspecified whether neurogenic claudication present (Primary Dx) 02/20/[address] [place] [address] Acacia Chakraborty RN Random MANAGER PMO visit 02/20/2024 Travel 02/05/[address] [address] Radha Jamison DO Hyperlipidemia, unspecified hyperlipidemia type; Anemia, unspecified type 02/02/[address] [address] Radha Jamison DO 02/02/[address] [address] Radha Jamison DO Chronic bilateral low back pain, unspecified whether sciatica present 02/01/2024 9:00 AM EST Office Visit [address] [address] Radha Jamison DO Atherosclerosis of [place] coronary artery of [place] heart, unspecified whether angina present (Primary Dx); Essential hypertension; 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, with long-term current use of insulin, macular edema presence unspecified, unspecified laterality (CMS/HCC); 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, macular edema presence unspecified, unspecified laterality, 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 [facility] [place] [address] Acacia Chakraborty, JOANN UTOX Neg OXY, conf. Neg Oxy; Needs random MANAGER PMO visit 02/01/2024 Travel 01/30/2024 Telephone [facility] [address] [facility] [place] [address] Radha Jamison, DO Med Refill 01/30/2024 Telephone [facility] [address] [place] [address] Radha Jamison, DO Med Refill 01/30/2024 Telephone [facility] [address] [place] [address] Radha Jamison, 01/30/2024 Refill [facility] [address] [place] [address] Radha Jamison, 01/29/2024 10:00 AM EST Clinical Support [facility] [address] [place] [address] Acacia Chakraborty, JOANN Spinal stenosis of lumbar region, unspecified whether neurogenic claudication present (Primary Dx) 01/29/2024 Refill [facility] [address] [place] [address] Acacia Chakraborty, waistband setter bilateral low back pain, unspecified whether sciatica present 01/29/2024 Travel 01/29/2024 Telephone [facility] [address] [place] [address] Acacia Chakraborty, JOANN Recommend MANAGER PMO Tier 1 01/25/2024 Telephone [facility] [address] [place] [address] Marita Contreras, OD 01/25/2024 Refill [facility] [address] [place] [address] Radha Jamison, 01/19/2024 Telephone [facility] [address] [place] [address] Radha Jamison DO FYI 01/19/2024 Patient Outreach [facility] [address] [place] [address] Radha Jamison DO Transition Of Care (Tcm) (HDF- scheduled and SDOH screening completed on 07/31/2023) 01/17/2024 Patient Outreach [facility] [place] [address] Radha Jamison DO Transition Of Care (Tcm) (HDF- Unscheduled second LVM) 01/17/[address] [address] Radha Jamison DO Returning Call ; Hospital Follow-up 01/17/2024 Patient Outreach [facility] [place] [address] Radha Jamison DO Transition Of Care (Tcm) (HDF- Unscheduled LVM on [phone] the other two numbers are not working.) 01/10/2024 Patient Outreach [address] [address] Radha Jamison DO Transition Of Care (Tcm) (HDF- Unscheduled LVM) 01/09/2024 Telephone [facility] [place] [address] Carli Myers, RN [employer] PA 01/09/2024 Refill [facility] [address] [place] [phone] Radha Jamison DO Hypertension, unspecified type 01/08/2024 Orders Only GENERIC EXTERNAL DATA DEPARTMENT Provider, Generic External Data 01/06/2024 Refill [facility] [place] [address] Radha Jamison DO Depression, unspecified depression type; Essential (primary) hypertension 01/04/2024 Refill [facility] [address] [place] [address] Radha Jamison DO Depression, unspecified depression type; Essential (primary) hypertension from Last 3 Months Immunizations Name Administration Dates Next Due Influenza, IIV3, injectable 02/20/2009 Influenza, seasonal, injectable, preservative fr ee 11/18/2013 Pfizer Covid-19 Vaccine 12+ 10/02/2020 Pneumococcal Polysaccharide PPSV23 11/18/2013, Social History Tobacco Use Types Packs/Day Years Used Date Smoking Tobacco: Every Day Cigarettes 1 44.6 Started: 08/31/1979 Passive Smoke Exposure: Current Smokeless Tobacco: Never Tobacco Cessation:Ready to Q uit: Not Asked; Counseling Given: Not Answered Alcohol Use Standard Drinks/Week Comments Never 0 [...] Orientation Straight 12/13/2021 10 :16 AM EDT Last Filed Vital Signs Vital Sign Reading Time Taken Comments Blood Pressure 130/64 04/04/2024 10:40 AM EST Pulse 77 03/19/2024 9:57 AM EST Temperature 36.8 ??C (98.3 ??F) 03/19/2024 9:57 AM ES T Respiratory Rate 16 03/19/2024 9:57 AM EST Oxygen Saturation 97% 03/19/2024 9:57 AM EST Inhaled Oxygen Concentration - - Weight 64.4 kg (142 lb) 03/19/2024 9:57 AM EST Height 152.4 cm (5') 02/01/2024 9:02 AM EST Body Mass Index 27.73 02/01/2024 9:02 AM EST Plan of Treatment Upcoming Encounters Date Type Department Care Team (Late st Contact Info) Description 04/17/2024 9:30 AM EST Clinical Support [facility] [address] [place] [phone] Acacia Chakraborty RN 04/24/2024 2:30 PM EDT Office Visit [facility] ADULT DENTAL [address] [place] [address] Peter Peña DDS [address] [place] [address] 05/09/2024 10:30 AM EDT Medication Management [address] [address] Nelia Sullivan, PharmD [address] [place] [address] 05/28/2024 9:45 AM EDT Office Visit [address] [address] Radha Jamison DO [address] [place] [address] Health Maintenance Due Date Last Done Comments CT Colonography 1960 Colonoscopy 1961 Colorectal Cancer Screening 1961 Dental Oral Exam 1961 Dental Prophylaxis 1961 Dental X-Ray: Bitewings 1961 FIT DNA/Cologuard 1961 FIT 1961 FOBT 1961 Sigmoidoscopy 1961 Diabetes: Foot Exam 12/16/1971 Eye Exam 12/16/1971 DTaP/Tdap/Td Vaccines (1 - Tdap) 1980 Hepatitis A Vaccines (1 of 2 - Risk 2-dose series) 1980 Pap Smear 1982 Cervical Cancer Screening 12/16/1991 HPV/Cotest 12/16/1991 Lung Cancer Screening 12/16/2011 Zoster Vaccines (1 of 2) 12/16/2011 Pneumococcal Vaccine: 50+ Years (2 of 2 - PCV) 11/18/2014 11/18/2013, 05/26/2005 Dental X-Ray: Full Mouth 03/14/2018 03/13/2015 RSV Patients and Patients Aged 60 years or older (1 - Risk 60-74 years 1-dose series) 2021 Mammogram 10/07/2023 10/06/2021 COVID-19 Vaccine (2 - season) 2023 10/02/2020 Influenza Vaccine (#1) 2023 11/18/2013, 2009 Diabetes: Urine Protein Screening 05/14/2024 05/15/2023, 08/08/2022, 10/01/2021, Additional history exists Lipid Panel 05/14/2024 05/15/2023, 07/15, 10/01/2021, Additional history exists Diabetes: Hemoglobin A1C 06/03/2024 025, 02/01/2024, 11/09/2023, Additional history exists Depression Monitoring (PHQ-9) 06/19/2024 12/21/2023, 12/21/2023 SDOH Screening 07/30/2024 07/31/2023 Depression Screening 12/20/2024 12/21/2023, 12/21/19 24 Alcohol/Substance Use Screening 01/31/2025 02/01/2024 Tobacco Screening 01/31/2025 02/01/2024 HIV Screening Completed 08/08/2022, 10/01/2021 Hepatitis C Screening Completed 08/08/2022, 022 HIB Vaccines Aged Out No longer eligi ble based on patient's age to complete this topic HPV Vaccines Aged Out No longer eligi ble based on patient's age to complete this topic Hepatitis B Vaccines Aged Out No long er eligible based on patient's age to complete this topic IPV Vaccines Aged Out No longer eligi ble based on patient's age to complete this topic Meningococcal Vaccine Aged Out No antoinette vita eligible based on patient's age to complete this topic RSV under 20 months Aged Out No longe r eligible based on patient's age to complete this topic Rotavirus Vaccines Aged Out No longer eligible based on patient's age to complete this topic Goals Goal Patient Goal Type Associated Problems [...] 24H data. Check BG manually, as directed. Procedures Procedure Name Priority Date/Time Associated Diagnosis Comments POCT GUERO-14 URINE DRUG SCREEN Routine 04/03/2024 10:35 AM EST Chronic bilateral low back pain, unspecified whether sciatica present POCT GUERO-14 URINE DRUG SCREEN Routine 03/19/2024 9:14 AM EST Chronic bilateral low back pain, unspecified whether sciatica present POCT GLYCATED HEMOGLOBIN, TOTAL Routine 03/05/2024 12:27 PM EST 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, with long-term current use of insulin, macular edema presence unspecified, unspecified laterality (CMS/HCC) POCT GUERO-14 URINE DRUG SCREEN Routine 03/05/2024 10:32 AM EST Spinal stenosis of lumbar region, unspecified whether neurogenic claudication present POCT GUERO-14 URINE DRUG SCREEN Routine 02/20/2024 9:12 AM EST Spinal stenosis of lumbar region, unspecified whether neurogenic claudication present POCT GLYCATED HEMOGLOBIN, TOTAL Routine 02/01/2024 9:09 AM EST 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, with long-term current use of insulin, macular edema presence unspecified, unspecified laterality (CMS/HCC) POCT GLUCOSE Routine 02/01/2024 9:06 AM EST 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, with long-term current use of insulin, macular edema presence unspecified, unspecified laterality (CMS/HCC) POCT GUERO-14 URINE DRUG SCREEN Routine 01/29/2024 10:54 AM EST Spinal stenosis of lumbar region, unspecified whether neurogenic claudication present OXYCODONE SCREEN, URINE Routine 01/29/2024 10:00 AM EST Spinal stenosis of lumbar region, unspecified whether neurogenic claudication present BASIC METABOLIC PANEL Routine 01/09/2024 CT HEAD WO CONTRAST Routine 01/08/2024 8 :40 PM EST VENOUS BLOOD GAS Routine 01/08/2024 8:25 PM EST PTT ON HEPARIN Routine 01/08/2024 8:18 PM EST APTT Routine 01/08/2024 8:18 PM EST PROTHROMBIN TIME-INR Routine 01/08/2024 8:18 PM EST PROTHROMBIN TIME-INR Routine 01/08/2024 8:18 PM EST CBC Routine 01/08/2024 8:18 PM EST XR CHEST 2 VIEWS Routine 01/08/2024 7:53 PM EST LIPID PANEL, STANDARD Routine 05/15/2023 8:21 AM EDT 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, with long-term current use of insulin, macular edema presence unspecified, unspecified laterality (CMS/HCC) ALBUMIN, RANDOM URINE W/CREATININE Routine 05/15/2023 8:20 AM EDT 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, with long-term current use of insulin, macular edema presence unspecified, unspecified laterality (CMS/HCC) HEPATITIS C AB W/RFL RNA, PCR W/RFL GENOTYPE,LIPA Routine 08/08/2022 10:44 AM EDT 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, with long-term current use of insulin, macular edema presence unspecified, unspecified laterality (CMS/HCC) HIV 1/2 ANTIGEN/ANTIBODY, FOURTH GENERATION W/RFL Routine 08/08/2022 10:44 AM EDT Unintentional weight loss MAMMOGRAM GENERIC Routine 10/06/2021 1:3 5 PM EDT PANORAMIC RADIOGRAPHIC IMAGE Routine 03/13/2015 12:00 AM EST from Last 3 Months or Most Recently Relevant to Health Maintenance Results * POCT GUERO-14 Urine Drug Screen (04/03/2024 10:35 AM EST) Only the most recent of5 resultswithin the time period is included. Oxycodone Screen, Urine Positive Urine Urine specimen obtained by clean catch procedure / Unknown 04/03/2024 10:35 AM EST Radha Jamison DO POINT OF CARE TEST ENTER/BHARGAVI T ORDERABLES Final Result * (ABNORMAL) POCT HGB A1C (03/05/2024 12:27 PM EST) Only the most recent of2 resultswithin the time period is included. Pathologist [facility] Hemoglobin A1C 10.6(A) 4.0 - 6.0 % Blood 03/05/2024 12:2 7 PM EST Radha Jamison DO POINT OF CARE TEST ENTER/BHARGAVI T ORDERABLES Final Result * (ABNORMAL) POCT Glucose (02/01/2024 9:06 AM EST) [facility] Glucose Blood, POC 303(A) 60 - 200 mg/dL QC Media Lot # [id number] Lot# Expiration Date Blood Capillary blood specimen / Unknown 02/01/2024 9:06 AM EST Radha Jamison DO POINT OF CARE TEST ENTER/BHARGAVI T ORDERABLES Final Result * Oxycodone Screen, Urine (01/29/2024 10:00 AM EST) [facility] Oxycodone Urine Screen Not Detected Not Detect ng/mL [facility] Comment:Oxycodone cut-off is 100 ng/mL.Positive results are unconfirmed and should not be used fornon-medical purposes. Urine 01/29/2024 10:0 0 AM EST 01/29/2024 1:01 PM EST Radha Jamison DO LAB URINE ORDERABLES Final R esult [facility] [address] [place] [phone] * Basic Metabolic Panel (01/09/2024) [facility] BUN 19 4 - 21 mg/dL Creatinine 0.90 mg/dL Potassium 3.6 3.4 - 5.5 mmol/L Sodium 140 137 - 147 mmol/L Blood Venous blood specimen / Unknown Historical Provider LAB BLOOD ORDERABLES Lizbeth l Result * CT Head w/o Contrast (01/08/2024 8:40 PM EST) Anatomical Region Laterality Modality Head, Neck Computed Tomogra phy 01/08/2024 8:40 PM EST Narrative 01/08/2024 9:48 PM EST ? [facility] [place] ?[address] ?[place] [address] ? CT Scan Report ? Signed ? Patient: Rocío Hallman ?MR#: [id number] ?? 087 ? : 1960 ?Acct:[id number] ? Age/Sex: 63 / F ?ADM Date: 01/08/24 ? Loc: HO.ED ? Attending Dr: ? Ordering Physician: Sha Oliveira MD ?? Date of Service: 01/08/24 ?? Procedure(s): CT head/brain wo IV con ?? Accession Number(s): [id number] ? cc: Sha Oliveira MD; Radha Jamison DO ? EXAMINATION: ?? CT HEAD WITHOUT CONTRAST ? CLINICAL INFORMATION: ?? Headache. ? COMPARISON: ?? CT head from 10/25/2023. ? TECHNIQUE: ?? Contiguous axial imaging was performed from the skull base to vertex ?? without intravenous administration of contrast. ? This CT examination was performed using dose optimization techniques as ?? appropriate, variously including the following: ?? *Automated exposure control. ?? *Adjustment of mA and/or kV according to patient size (this includes ?? techniques or standardized protocols for targeted exams where dose is ?? matched to indication/reason for exam; i.e. extremities or head). ?? *Use of iterative reconstruction technique. ? DLP: ?? 566 mGy-cm ? FINDINGS: ?? There is no evidence of acute intracranial hemorrhage or edematous ?? territorial infarction. Kelly-white matter differentiation is preserved. ?? A few foci of hypoattenuation in the periventricular and deep white ?? matter are consistent with mild microangiopathy. The ventricles are ?? normal in morphology and size. No evidence for obstructive ?? hydrocephalus. The suprasellar cistern remains widely patent. Normal ?? positioning of the cerebellar tonsils. No abnormal mass effect or ?? midline shift. No extra-axial fluid collections. Calcific ?? atherosclerotic disease of the intracranial internal carotid and ?? vertebral arteries. No hyperdense vessel sign. ? No acute soft tissue or osseous abnormalities. Mild mucosal thickening ?? of the paranasal sinuses. The mastoid air cells and middle ear cavities ?? are clear. ? CT/CT head/brain wo IV con ?? IMPRESSION: ?? 1. ??No evidence of acute intracranial hemorrhage or edematous ?? territorial infarction. ?? 2. ??Mild underlying microangiopathy. ? Electronically signed by: ??Tip Hunter DO ??01/08/2024 09:44 PM EST RP ? Dictated By: ?Paramjit Hunter DO ? Signed By: ?<Electronically signed by Paramjit Hunter DO in OV> ? 01/08/242143 ? DD/ 39 ? TD/TT: 01/08/242048 ? Die Cast Patternmaker: [place] ? Procedure Note Shefali, Veronica - 01/08/[address] [place] [address] [address] Scan Report Signed Patient: Rocío HallmanMR#: [id number] 087 : 1960cct:[id number] Age/Sex: 63 / FADM Date: 01/08/24 Loc: HO.ED Attending Dr: Ordering Physician: Sha Oliveira MD Date of Service: 01/08/24 Procedure(s): CT head/brain wo IV con Accession Number(s): [id number] cc: Sha Oliveira MD; Radha Jamison DO EXAMINATION: CT HEAD WITHOUT CONTRAST CLINICAL INFORMATION: Headache. COMPARISON: CT head from 10/25/2023. TECHNIQUE: Contiguous axial imaging was performed from the skull base to vertex without intravenous administration of contrast. This CT examination was performed using dose optimization techniques as appropriate, variously including the following: *Automated exposure control. *Adjustment of mA and/or kV according to patient size (this includes techniques or standardized protocols for targeted exams where dose is matched to indication/reason for exam; i.e. extremities or head). *Use of iterative reconstruction technique. DLP: 566 mGy-cm FINDINGS: There is no evidence of acute intracranial hemorrhage or edematous territorial infarction. Kelly-white matter differentiation is preserved. A few foci of hypoattenuation in the periventricular and deep white matter are consistent with mild microangiopathy. The ventricles are normal in morphology and size. No evidence for obstructive hydrocephalus. The suprasellar cistern remains widely patent. Normal positioning of the cerebellar tonsils. No abnormal mass effect or midline shift. No extra-axial fluid collections. Calcific atherosclerotic disease of the intracranial internal carotid and vertebral arteries. No hyperdense vessel sign. No acute soft tissue or osseous abnormalities. Mild mucosal thickening of the paranasal sinuses. The mastoid air cells and middle ear cavities are clear. CT/CT head/brain wo IV con IMPRESSION: 1. No evidence of acute intracranial hemorrhage or edematous territorial infarction. 2. Mild underlying microangiopathy. Electronically signed by: Tip Hunter DO 01/08/2024 09:44 PM EST Dictated By: Paramjit Hunter DO Signed By: <Electronically signed by Paramjit Hunter DO in OV> 01/08/242143 DD/ 39 TD/TT: 01/08/242048 Die Cast Patternmaker: [place] [facility] External Provider IMG CT PROCEDURES Final Result * (ABNORMAL) VENOUS BLOOD GAS (01/08/2024 8:25 PM EST) VBG pH 7.43 7.32 - 7.43 [facility] Comment:METER #: [id number] additional_comment: Cb nmurpe VBG PCO2 49 mmHg [facility] Comment:METER #: [id number] additional_comment: Cb nmurpe VBG PO2 56 mmHg [facility] Comment:METER #: [id number] additional_comment: Cb nmurpe VBG Base Excess 7.5 mmol/L [facility] Comment:METER #: [id number] additional_comment: Cb nmurpe VBG HCO3 32(H) 22 - 26 mmol/L [facility] Comment:METER #: [id number] additional_comment: Cb nmurpe O2 Sat, Karthik 87.0 % [facility] Comment:METER #: [id number] additional_comment: Cb nmurpe 01/08/2024 8:25 PM EST 01/08/2024 8:46 PM EST us Generic External Data Provider LAB BLOOD ORDERAB LES Final Result Performing Organization Address [facility] Co de Phone Number [facility] [address] [place] [phone] * (ABNORMAL) APTT on Heparin (01/08/2024 8:18 PM EST) PTT on Heparin 31.7(L) 53 - 77.9 SEC [facility] Comment:For information rega rding the monitoring of heparin therapy,please refer to Pharmacy. 01/08/2024 8:18 PM EST 01/08/2024 8:24 PM EST us Generic External Data Provider LAB BLOOD ORDERAB LES Final Result Performing Organization Address [facility] Phone Number [facility] [address] [place] [phone] * Partial Thromboplastin Time, Activated (APTT) (01/08/2024 8:18 PM EST) Partial Thromboplastin Time 31.7 26.0 - 36.8 SEC [facility] Comment:For information rega rding the monitoring of direct thrombininhibitors, please refer to Pharmacy. 01/08/2024 8:18 PM EST 01/08/2024 8:24 PM EST us Generic External Data Provider LAB BLOOD ORDERAB LES Final Result Performing Organization Address [facility] Co de Phone Number [facility] [address] [place] [phone] * (ABNORMAL) Prothrombin Time-INR (01/08/2024 8:18 PM EST) Only the most recent of2 resultswithin the time period is included. Pathologist [facility] Prothrombin Time 10.3(L) 10.9 - 12.4 SEC [facility] INTERNATIONAL NORM RATIO 0.9 0.9 - 1.1 [facility] Comment:INTERNATIONAL NORMAL IZED RATIO (INR) REFERENCE RANGES Reference RangeFor patients not on anticoagulant therapy: 0.9 - 1.1INR ranges for oral anticoagulanttherapy:For prevention and treatment of venous thrombosis and pulmonary embolism: 2.0 - 3.0For acute myocardial infarction with aspirin therapy: 2.0 - 3.0For acute myocardial infarction without aspirin therapy: 3.0 - 4.0For patients with mechanical prosthetic heart valves: 2.5 - 3.5 01/08/2024 8:18 PM EST 01/08/2024 8:24 PM EST us Generic External Data Provider LAB BLOOD ORDERAB LES Final Result Performing Organization Address City/State/[facility] Co de Phone Number [facility] [address] [place] [phone] * (ABNORMAL) CBC (01/08/2024 8:18 PM EST) Pathologist [facility] White Blood Count 7.4 4.8 - 10.8 X10*3/uL [facility] Red Blood Count 3.52(L) 4.20 - 5.50 X10*6/uL [facility] Hemoglobin 10.5(L) 12.0 - 16.0 g/dl [facility] Hematocrit 30.9(L) 37.0 - 47.0 % [facility] Mean Corpuscular Volume 87.8 80.0 - 98.0 fL [facility] Mean Corpuscular Hemoglobin 29.8 27.0 - 33.0 pg [facility] Mean Corpuscular HGB Conc 34.0 31.0 - 35.0 g/dl [facility] Red Cell Distribution Width 13.2 11.0 - 16.0 % [facility] Platelet Count 296 160 - 400 X10*3/uL [facility] Mean Platelet Volume 9.4 9.4 - 12.3 fL [facility] NRBC Pct Auto 0.0 0.0 - 0.2 /100WBC [facility] NRBC Abs Auto 0.000 0.0 - 0.012 X10*3/uL [facility] 01/08/2024 8:18 PM EST 01/08/2024 8:24 PM EST us Generic External Data Provider LAB BLOOD ORDERAB LES Final Result [facility] [address] [place] [phone] * XR Chest 2 Views (01/08/2024 7:53 PM EST) Anatomical Region Laterality Modality Chest Radiographic Samantha ging 01/08/2024 7:53 PM EST Narrative 01/08/2024 9:30 PM EST ? [facility] [place] ?[address] ?[place] [address] ?XRay Report ? Signed ? Patient: Rocío Hallman ?MR#: [id number] ?? 087 ? : 1960 ?Acct:[id number] ? Age/Sex: 63 / F ?ADM Date: 01/08/24 ? Loc: HO.ED ? Attending Dr: ? Ordering Physician: Sha Oliveira MD ?? Date of Service: 01/08/24 ?? Procedure(s): XR chest 2V ?? Accession Number(s): [id number] ? cc: Sha Oliveira MD; Radha Jamison DO ? EXAMINATION: ?? XR CHEST ? CLINICAL INFORMATION: ?? chest pain ? COMPARISON: ?? Chest radiograph 11/19/2023 ?? CT angiogram chest 01/16/2021 ? TECHNIQUE: ?? 2 views of the chest were obtained. ? FINDINGS: ?? No significant abnormality is noted involving the heart, lungs, ?? mediastinum, bony thorax or soft tissues. Again noted is a benign left ?? lower lobe calcified granuloma. A tiny hiatal hernia is again seen. ? XR/XR chest 2V ?? IMPRESSION: ?? Unremarkable examination. ? Electronically signed by: ??Delbert Mcmanus MD ??01/08/2024 09:27 PM EST ?? RP ? Dictated By: ?Delbert Mcmanus MD ? Signed By: ?<Electronically signed by Delbert Mcmanus MD in OV> ? 01/08/242126 ? DD/ 52 ? TD/TT: 01/08/24 2017 ? Die Cast Patternmaker: SS ? Procedure Note Donotuseinterpreter, Image - 01/08/[address] [address] XRay Report Signed Patient: Rocío HallmanMR#: [id number] 087 : 1960cct:[id number] Age/Sex: 63 / FADM Date: 01/08/24 Loc: HO.ED Attending Dr: Ordering Physician: Sha Oliveira MD Date of Service: 01/08/24 Procedure(s): XR chest 2V Accession Number(s): [id number] cc: Sha Oliveira MD; Radha Jamison DO EXAMINATION: XR CHEST CLINICAL INFORMATION: chest pain COMPARISON: Chest radiograph 11/19/2023 CT angiogram chest 01/16/2021 TECHNIQUE: 2 views of the chest were obtained. FINDINGS: No significant abnormality is noted involving the heart, lungs, mediastinum, bony thorax or soft tissues. Again noted is a benign left lower lobe calcified granuloma. A tiny hiatal hernia is again seen. XR/XR chest 2V IMPRESSION: Unremarkable examination. Electronically signed by: Delbert Mcmanus MD 01/08/2024 09:27 PM [facility] Dictated By: Delbert Mcmanus MD Signed By: <Electronically signed by Delbert Mcmanus MD in OV> 01/08/242126 DD/ 52 TD/TT: 01/08/242016 Die Cast Patternmaker: [facility] External Provider IMG XR PROCEDURES Final Result * (ABNORMAL) Lipid Panel, Standard (05/15/2023 8:21 AM EDT) Triglycerides 136 <150 mg/dL [facility] Comment:Desirable Triglyceri de: less than 150 mg/dLBorderline High Triglyceride 150-199 mg/dLHigh Triglyceride: 200-499 mg/dLVery High Triglyceride: greater than or equal to 5OO mg/dL Cholesterol 240(H) <200 mg/dL [facility] Comment:Desirable Cholestero l: less than 200 mg/dLBorderline High Cholesterol: 200-239 mg/dLHigh Cholesterol: greater than 239 mg/dL LDL Cholesterol Calculated 165(H) <100 mg/dL [facility] Comment:Desirable LDL: less than 100 mg/dLNear Optimal/Above Optimal LDL: 110- 129 mg/dLBorderline High LDL: 130-159 mg/dLHigh LDL: 160-189 mg/dLVery High LDL: greater than or equal to 190 mg/dL HDL Cholesterol 48 >40 mg/dL [facility] Comment:Desirable HDL: great er than 40 mg/dL Note: This HDL assay may give artificially low results in patients with liver disease. Blood Venous blood specimen / Unknown 05/15/2023 8:21 AM EDT 05/15/2023 8:21 AM EDT us Radha Jamison DO LAB BLOOD ORDERABLES Final R esult [facility] [address] [place] [phone] * (ABNORMAL) Albumin, Random Urine W/Creatinine (05/15/2023 8:20 AM EDT) Creatinine, Urine 105.69 mg/dL [facility] Microalbumin Urine 1,418.0 mg/L [facility] Microalbum Creatinine Ratio Ur 1,341.6(H ) <30 ug/mg cr [facility] Comment:Albumin/Creatinine R atio Reference Ranges: Normal: < 30 ug/mg creatinine Microalbuminuria: 30 - 300 ug/mg creatinineClinical Albuminuria: > 300 ug/mg creatinine Urine (Urine, Random) 05/15/2023 8:20 AM EDT 05/15/2023 8:31 AM EDT Radha [place] [facility] URINE ORDERABLES Final R esult [facility] [address] [place] [phone] * Hepatitis C Antibody with Reflex to HCV RNA,PCR w/Reflex to Genotype, LiPA (08/08/2022 10:44 AM EDT) Hepatitis C Antibody NON-REACT ROMERO NON-REACT ROMERO [facility] Comment: HCV antibody was non-reactive. There is no laboratory evidence of HCV infection. In most cases, no further action is required. However, if recent HCV exposure is suspected, a test for HCV RNA (test code 98736) is suggested. For additional information, please refer to http://education.[employer]/faq/UCB612 (This link is being provided for informational/ educational purposes only.) 08/08/2022 10:4 4 AM EDT 08/08/2022 10:45 AM EDT Narrative [facility] - 08/09/2022 7:27 PM EDT FASTING:YES COLLECTION KIT GIVEN TO PATIENT. PATIENT ADVISED TO RETURN. FASTING: YES Radha Jamison DO LAB BLOOD ORDERABLES Final R esult [facility] [address] [facility], [place] [address] [facility] [address] [place] [address] * HIV-1/2 Antigen and Antibodies, Fourth Generation, with Reflexes (08/08/2022 10:44 AM EDT) HIV Antigen/Antibody, 4th Generation NON-REAC TIVE NON-REAC TIVE [facility] Comment: HIV-1 antigen and HIV-1/HIV-2 antibodies were not detected. There is no laboratory evidence of HIV infection. PLEASE NOTE: This information has been disclosed to you from records whose confidentiality may be protected by state law. ??If your state requires such protection, then the state law prohibits you from making any further disclosure of the information without the specific written consent of the person to whom it pertains, or as otherwise permitted by law. A general authorization for the release of medical or other information is NOT sufficient for this purpose. ?? For additional information please refer to http://education.[employer]/faq/DXD598 (This link is being provided for informational/ educational purposes only.) The performance of this assay has not been clinically validated in patients less than 2 years old. Blood Venous blood specimen / Unknown 08/08/2022 10:44 AM EDT 08/08/2022 10:45 AM EDT Narrative [facility] - 08/09/2022 7:27 PM EDT FASTING:YES COLLECTION KIT GIVEN TO PATIENT. PATIENT ADVISED TO RETURN. FASTING: YES us Radha Jamison DO LAB BLOOD ORDERABLES Final R esult [facility] [address], [place] [address] [facility] [address] [place] [address] * Mammography Report 1 (10/06/2021 1:35 PM EDT) Anatomical Region Laterality Modality Breast Bilateral Mammography 10/06/2021 1:35 PM EDT Narrative 10/06/2021 4:07 PM EDT Refer to the Notes tab for result details [facility] Procedure: Mammography Report 1 Procedure Note Provider, MD Roseann - 05/08/2022 Refer to the Notes tab for result details [facility] Procedure: Mammography Report 1 us Radha Jamison DO IMG BI PROCEDURES Final Resu lt from Last 3 Months or Most Recently Relevant to Health Maintenance Insurance * Guarantor: Rocío Hallman Account Type Relation to Patient Date of Phone Billing Address Personal/Family Self [address] [place], [place] [facility] C3 DENTAL-[facility] MEDICAID STAND ADULT Care 

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
--- OUTSIDE RECORDS SUMMARY | 2024-04-04 12:07 | XMS_ITS | Encounter Summary ---
Author Organization [employer] [facility] Address 75 [facility] 7t [place] [address] Care Team Providers Care Computer Project Manager Name Role Phone Radha Jamison DO Primary Care Provider DelAbdias hardy PharmD Unavailable Unavail able Nelia Sullivan PharmD Unavailable [phone] Reason for Visit * Reason Comments Med Refill Encounter Details Date Type Department Care Team (Late st Contact Info) Description 01/31/2022 Refill [facility] [address] [place] [address] Radha Jamison DO 230 [place] [address] Chronic bilateral low back pain, unspecified whether sciatica present Social History Tobacco Use Types Packs/Day Years Used Date Smoking Tobacco: Never Assessed Comments Unknown Sex and Gender Information Value [...] suspected to have Coronavirus/COVID-19? No / Unsure 02/01/2022 1:37 PM EST documented as of this encounter Plan of Treatment Upcoming Encounters Date Type Department Care Team (Late st Contact Info) Description 04/17/2024 9:30 AM EST Clinical Support [facility] [address] [place] [address] Acacia Chakraborty RN 04/24/2024 2:30 PM EDT Office Visit [facility] ADULT DENTAL [address] [place] [address] Peter Peña DDS 230 [facility] [place] [address] 05/09/2024 10:30 AM EDT Medication Management [facility] [address] [place] [address] Nelia Sullivan PharmD 230 [facility] [place] [address] 05/28/2024 9:45 AM EDT Office Visit [facility] 230 [facility] [place] [address] Radha Jamison DO 230 [facility] [address] documented as of this encounter Visit Diagnoses Diagnosis Chronic bilateral low back pain, unspecified whether sciatica present documented in this encounter Care Teams Computer Project Manager Relationship Specialty Start Date End Date Radha Jamison DO Preet [facility] [place] [address] PCP - General Family Medicine 01/26/12 Abdias [place] [address] Pharmacist Internal Medicine 03/21/22 08/30/23 Nelia Sullivan, KeithD [address] [place], [place] [address] [facility] [place] [address] Pharmacist Internal Medicine 08/31/23 Laurel Monterroso Flute GrinderGoal Umpire 10/27/22 Saige Aguilar 09/26/23 documented as of this encounter
--- OUTSIDE RECORDS SUMMARY | 2024-04-04 12:07 | XMS_ITS | Encounter Summary ---
Author Organization [employer] Address 75 [facility] 7t [place] [address] Care Team Providers Care Blood Bank Technologist Name Role Phone Radha Jamison DO Primary Care Provider [phone] Nelia Sullivan PharmD Unavailable [phone] Reason for Visit * Reason Comments Med Refill Encounter Details Date Type Department Care Team ([facility] st Contact Info) Description 10/30/2023 Refill [facility] [address] [place], [place] [phone] Radha Jamison DO 230 [place] [address] Chronic bilateral low back pain, unspecified whether [...] Recorded Patient Health Questionnaire-2 Score 2 11/08/2022 Internet Access Answer Date Recorded Internet Access [...] Description 04/17/2024 9:30 AM EST Clinical Support [facility] [address] [place] [address] Acacia Chakraborty RN 04/24/2024 2:30 PM EDT Office Visit [facility] ADULT DENTAL [address] [place] [address] Peter Peña DDS [address] [place] [address] 05/09/2024 10:30 AM EDT Medication Management [facility] [address] [place] [address] Nelia Sullivan, PharmD [address] [place] [address] 05/28/2024 9:45 AM EDT Office Visit [facility] [address] [place] [address] Radha Jamison DO [address] [place] [address] documented as of this encounter Goals Goal [...] documented as of this encounter Care Teams Blood Bank Technologist Relationship Specialty Start Date End Date Radha Jamisno DO [address] [place] [address] PCP - General Family Medicine 01/26/12 Nelia Sullivan PharmD [address] [place] [address] Pharmacist Internal Medicine 08/31/23 Laurel Monterroso Extractor Operator HelperWet End Supervisor 10/27/22 Saige Aguilar 09/26/23 documented as of this encounter
--- OUTSIDE RECORDS SUMMARY | 2024-04-04 12:07 | XMS_ITS | Encounter Summary ---
Author Organization [employer] Address 75 [facility] 7t [place] [address] Care Team Providers Care Bottle Line Worker Name Role Phone Radha Jamison DO Primary Care Provider [phone] Abdias Murillo PharmD Unavailable Unavail able Nelia Sullivan PharmD Unavailable [phone] Reason for Visit * Reason Comments Med Refill Encounter Details Date Type Department Care Team (Late st Contact Info) Description 12/21/2022 Refill [facility] [address] [place] [address] Radha Jamison DO [address] [place] [address] Chronic bilateral low back pain, unspecified whether [...] Description 04/17/2024 9:30 AM EST Clinical Support [facility] [address] [place] [address] Acacia Chakraborty RN 04/24/2024 2:30 PM EDT Office Visit [facility] ADULT D[facility] [address] [place] [address] Peter Peña DDS [address] [place] [address] 05/09/2024 10:30 AM EDT Medication Management [address] [address] Nelia Sullivan PharmD [address] [place] [address] 05/28/2024 9:45 AM EDT Office Visit [address] [address] Radha Jamison DO [address] [place] [address] documented as of this encounter Goals Goal [...] documented as of this encounter Care Teams Bottle Line Worker Relationship Specialty Start Date End Date Radha Jamison DO [address] [place] [address] PCP - General Family Medicine 01/26/12 Abdias Murillo, Camron [address] [place] [address] Pharmacist Internal Medicine 03/21/22 08/30/23 Nelia Sullivan PharmD [address] [place] [address] Pharmacist Internal Medicine 08/31/23 Laurel Monterroso FiresetterMotor Racer 10/27/22 Saige Aguilar 09/26/23 documented as of this encounter
--- OUTSIDE RECORDS SUMMARY | 2024-04-04 12:07 | XMS_ITS | Encounter Summary ---
Author Organization [employer] [facility] Address 75 [facility] 7t [place] [address] Care Team Providers Care Plant Sciences Professor Name Role Phone ShaheenRadha Primary Care Provider [phone]- [phone] Abdias Murillo PharmD Unavailable Unavail able Nelia Sullivan PharmD Unavailable Reason for Visit * Reason Onset Date Comments Med Refill Appointment 05/15/2022 Re: her appt for today as [id number] @ 10:15 am. & No active phone # at this time. Encounter Details Date Type Department Care Team (Late st Contact Info) Description 05/15/2022 Refill [facility] [address] [place] [address] Abdias Murillo, PharmD Type 2 diabetes mellitus with other specified complication, with long-term current use of insulin ([facility]) Social History Tobacco Use Types Packs/Day Years [...] suspected to have Coronavirus/COVID-19? No / Unsure 05/04/2022 10:51 AM EDT documented as of this encounter Miscellaneous Notes * Telephone Encounter - Monica Avaloso - 05/16/2022 9:46 AM EDT T/C placed to pt regarding her appt for today as [id number] @ 10:15 am. And her phone # is not active at this time. documented in this encounter Plan of Treatment Upcoming Encounters Date Type Department Care Team (Late st Contact Info) Description 04/17/2024 9:30 AM EST Clinical Support [facility] [address] [place] [address] Acacia Chakraborty RN 04/24/2024 2:30 PM EDT Office Visit [facility] ADULT DENTAL [address] [place] [address] Peter Peña DDS [address] [place] [address] 05/09/2024 10:30 AM EDT Medication Management [facility] [address] [place] [address] Nelia Sullivan PharmD [address] [place] [address] 05/28/2024 9:45 AM EDT Office Visit [facility] [address] [place] [address] Radha Jamison DO [address] [place] [address] documented as of this encounter Goals Goal Patient Goal Type Associated Problems Recent Progress Patient-Stated? Author Hemoglobin A1c < 7 Result Component 10.6( 12:27 PM EST) Abdias Owens, KeithD documented as of this encounter Visit Diagnoses Diagnosis Type 2 diabetes mellitus with other specified complication, with long-term current use of insulin ([facility]) documented in this encounter Additional Health Concerns Assessment Noted Time PHQ-9 Depression Total Score: 14 023 12:00 PM EST documented as of this encounter Care Teams Plant Sciences Professor Relationship Specialty Start Date End Date Radha Jamison DO [address] [place] [address] PCP - General Family Medicine 01/26/12 Abdias Murillo, KeithD 230 [place] [address] Pharmacist Internal Medicine 03/21/22 08/30/23 Nelia Sullivan PharmD [address] [place] [address] Pharmacist Internal Medicine 08/31/23 Laurel Monterroso Warehouse Insulation WorkerFamily And Consumer Science Professor 10/27/22 Saige Aguilar 09/26/23 documented as of this encounter
--- OUTSIDE RECORDS SUMMARY | 2024-04-04 12:07 | XMS_ITS | Encounter Summary ---
Author Organization [employer] Address 75 [facility] 7t [place] [address] Care Team Providers Care Adjunct Nursing Faculty Name Role Phone Radha Jamison DO Primary Care Provider [phone] Abdias Murillo PharmD Unavailable Unavail able Nelia Sullivan PharmD Unavailable [phone] Reason for Visit * Reason Comments Med Refill Encounter Details Date Type Department Care Team (Late st Contact Info) Description 02/14/2023 Refill [facility] 230 [place], [place] [phone] Radha Jamison DO 230 [place] [address] Chronic bilateral low back pain, unspecified whether [...] 04/17/2024 9:30 AM EST Clinical Support [facility] [address] [place] [address] Acacia Chakraborty RN 04/24/2024 2:30 PM EDT Office Visit [facility] D[facility] [address] [place] [address] Peter Peña DDS [address] [place] [address] 05/09/2024 10:30 AM EDT Medication Management [address] [address] Nelia Sullivan PharmD [address] [place] [address] 05/28/2024 9:45 AM EDT Office Visit [address] [address] Radha Jamison DO [address] [place] [address] documented as of this encounter Goals Goal [...] documented as of this encounter Care Teams Adjunct Nursing Faculty Relationship Specialty Start Date End Date Radha Jamison DO [address] [place] [address] PCP - General Family Medicine 01/26/12 Abdias Murillo, Camron [address] [place] [address] Pharmacist Internal Medicine 03/21/22 08/30/23 Nelia Sullivan PharmD [address] [place] [address] Pharmacist Internal Medicine 08/31/23 Laurel Monterroso Product Marketing InternTurret Press Operator 10/27/22 Saige Aguilar 09/26/23 documented as of this encounter
--- OUTSIDE RECORDS SUMMARY | 2024-04-04 12:07 | XMS_ITS | Clinical Summary ---
Author Organization Unknown Care Team Providers Care Elephant Tamer Name Role Phone ADILIA FELIPE, VIOLETA Unavailable Unavailable SURJIT DAVID, ERIC Unavailable Unavailable Payers Payer Name Policy Type Policy Number Effective Date Expira tion Date MEDICAID [facility] [id number] Problems Condition Name Condition Details Condition Category Status Onset Date Resolution Date Last Treatment Date Treating Clinician Comments ESSENTIAL (PRIMARY) HYPERTENSION Active 09-21 00:00: 00 ATHSCL HEART DISEASE OF [place] CORONARY ARTERY W/O ANG PCTRS Active 09-21 [...] CIGARETTES, UNCOMPLICATE D Active 09-21 00:00: 00 FPC (CURRENT) USE OF INSULIN Active 09-21 00:00: 00 FPC (CURRENT) USE OF ANTITHROMBOT ICS/ANTIPLAT ELETS Active [...] release 24 hr 8-05 00:00: 00 Yes [id number] 60 mg AT BEDTIME 60 mg AT BEDTIME (route: oral) Med Classific ation: Cardiovas cular Therapy Agents oxycodone 5 mg tablet 09-04 00:00: 00 11-19 23:59 :00 No [id number] Unavailable 5 mg FIVE TIMES DAILY NEEDED 5 mg FIVE TIMES DAILY NEEDED (route: oral) Med Classific ation: Analgesic , Anti-infl ammatory or Antipyret ic gabapentin 600 mg tablet 09-03 00:00: 00 09-25 23:59 :00 No [id number] 600 mg 2 TIMES DAILY 600 mg 2 TIMES DAILY (route: oral) Med Classific ation: Central Nervous System Agents nicotine 21 mg/24 hr daily transdermal patch 08-30 00:00: 00 Yes [id number] Unavailable 21 mg DAILY 21 mg DAILY (route: transderma l) Med Classific ation: Chemical Dependenc y, Agents to Treat Alcohol Prep Pads 08-29 00:00: 00 Yes [id number] 1 pads, medicat ed DIRECTED THREE TIMES DAILY AND NEEDED 1 pads, medicated DIRECTED THREE TIMES DAILY AND NEEDED (route: topical) Med Classific ation: Antisepti cs and Disinfect ants amitriptyli ne 50 mg tablet 08-29 00:00: 00 Yes [id number] Unavailable 50 mg AT BEDTIME 50 mg AT BEDTIME (route: oral) Med Classific ation: Central Nervous System Agents Asmanex HFA 100 mcg/actuati on aerosol inhaler 08-29 00:00: 00 Yes [id number] 2 puff TWICE DAILY 2 puff TWICE DAILY (route: inhalation ) Med Classific ation: Respirato ry Therapy Agents atorvastati n 80 mg tablet 08-29 00:00: 00 Yes [id number] Unavailable 80 mg BEDTIME 80 mg BEDTIME (route: oral) Med Classific ation: Cardiovas cular Therapy Agents carvedilol 25 mg tablet 08-29 00:00: 00 Yes [id number] Unavailable 25 mg TWICE DAILY 25 mg TWICE DAILY (route: oral) Med Classific ation: Cardiovas cular Therapy Agents clopidogrel 75 mg tablet 08-29 00:00: 00 Yes [id number] 75 mg EVERY AM 75 mg EVERY AM (route: oral) Med Classific ation: Hematolog ical Agents docusate sodium 100 mg capsule 08-29 00:00: 00 09-25 23:59 :00 No [id number] Unavailable 100 mg TWICE DAILY 100 mg TWICE DAILY (route: oral) Med Classific ation: Gastroint estinal Therapy Agents escitalopra m 20 mg tablet 08-29 00:00: 00 Yes [id number] Unavailable 20 mg EVERY PM 20 mg EVERY PM (route: oral) Med Classific ation: Central Nervous System Agents FeroSul 325 mg (65 mg iron) tablet 08-29 00:00: 00 09-25 23:59 :00 No [id number] Unavailable 325 mg TWICE DAILY IN THE MORNING AND AT BEDTIME 325 mg TWICE DAILY IN THE MORNING AND AT BEDTIME (route: oral) Med Classific ation: Electroly te Balance-N utritiona l Products gabapentin 800 mg tablet 08-29 00:00: 00 Yes [id number] 800 mg 2 TIMES DAILY 800 mg 2 TIMES DAILY (route: oral) Med Classific ation: Central Nervous System Agents hydralazine 25 mg tablet 08-29 00:00: 00 Yes [id number] Unavailable 25 mg 3 TIMES DAILY 25 mg 3 TIMES DAILY (route: oral) Med Classific ation: Cardiovas cular Therapy Agents hydralazine 50 mg tablet 08-29 00:00: 00 09-25 23:59 :00 No [id number] Unavailable 50 mg THREE TIMES DAILY IN THE MORNING AT 50 mg THREE TIMES DAILY IN THE MORNING AT (route: oral) Med Classific ation: Cardiovas cular Therapy Agents mirtazapine 45 mg tablet 08-29 00:00: 00 Yes [id number] Unavailable 45 mg AT BEDTIME 45 mg AT BEDTIME (route: oral) Med Classific ation: Central Nervous System Agents omeprazole 20 mg capsule,del ayed release 08-29 00:00: 00 Yes [id number] 20 mg TWICE DAILY 20 mg TWICE DAILY (route: oral) Med Classific ation: Gastroint estinal Therapy Agents lisinopril 40 mg tablet 09-25 00:00: 00 Yes [id number] 40 mg DAILY 40 mg DAILY (route: oral) Med Classific ation: Cardiovas cular Therapy Agents metformin 1,000 mg tablet 09-25 00:00: 00 Yes [id number] 1000 mg 2 TIMES DAILY 1000 mg 2 TIMES DAILY (route: oral) Med Classific ation: Endocrine multivitami n tablet 09-25 00:00: 00 Yes [id number] 1 tablet DAILY 1 tablet DAILY (route: oral) Med Classific ation: Electroly te Balance-N utritiona l Products nifedipine ER 60 mg tablet,exte nded release 09-25 00:00: 00 Yes [id number] 60 mg EVERY PM 60 mg EVERY PM (route: oral) Med Classific ation: Cardiovas cular Therapy Agents pioglitazon e 15 mg tablet 09-25 00:00: 00 Yes [id number] 15 mg DAILY 15 mg DAILY (route: oral) Med Classific ation: Endocrine Tresiba FlexTouch U-100 insulin 100 unit/mL (3 mL) subcutane s pen 09-25 00:00: 00 Yes [id number] 10 In unit DAILY 10 In unit DAILY (route: subcutaneo ) Med Classific ation: Endocrine Vital Signs Vital Name Observation Time Observation Value Commen ts Temperature 2024-04-03 11:43:00.000 98.1 [degF] Temperature 2024-04-02 14:07:00.000 98 [degF] Temperature 2024-04-01 12:28:00.000 97.5 [degF] Temperature 2024-03-31 22:22:00.000 97.5 [degF] Temperature 2024-03-30 11:37:00.000 97.5 [degF] Temperature 2024-03-29 16:41:00.000 98 [degF] Temperature 2024-03-28 13:19:00.000 98 [degF] Temperature 2024-03-27 23:43:00.000 97.8 [degF] Temperature 2024-03-26 12:59:00.000 98.1 [degF] Temperature 2024-03-25 11:51:00.000 98.1 [degF] Temperature 2024-03-24 11:28:00.000 97.5 [degF] Systolic Blood Pressure 2024-03-31 22:23:00.000 148 mm [Hg] Systolic Blood Pressure 2024-03-30 11:38:00.000 144 mm [Hg] Systolic Blood Pressure 2024-03-27 23:44:00.000 144 mm [Hg] Diastolic Blood Pressure 2024-03-31 22:23:00.000 90 mm [Hg] Diastolic Blood Pressure 2024-03-30 11:38:00.000 78 mm [Hg] Diastolic Blood Pressure 2024-03-27 23:44:00.000 90 mm [Hg] Plan of Treatment Planned Activity Planned Date [...] AND FALL PREVENTION STRATEGIES.] Future Scheduled Test SKILLED NU RSE TO PROVIDE INSTRUCTION TO PATIENT/CAREGIVER RELATED TO DISCHARGE PLANNING. [code = SKILLED NURSE TO PROVIDE INSTRUCTION TO PATIENT/CAREGIVER RELATED TO DISCHARGE PLANNING.] Future Scheduled Test SKILLED NU RSE WILL MAINTAIN SITUATIONAL AWARENESS FOR SAFETY AND WILL NOTIFY CLINICAL CHEMICAL DEPENDENCY THERAPIST AND PHYSICIAN/PROVIDER WITH ANY CHANGE IN CONDITION. [code = SKILLED NURSE WILL MAINTAIN SITUATIONAL AWARENESS FOR SAFETY AND WILL NOTIFY CLINICAL CHEMICAL DEPENDENCY THERAPIST AND PHYSICIAN/PROVIDER WITH ANY CHANGE IN CONDITION.] Future Scheduled Test SKILLED NU RSE TO [...] MEDICATIONS DAILY AND PRE-POUR MEDICATIONS TILL NEXT [facility] VISIT PER MEDICATION LIST. [code = SKILLED NURSE TO ADMINISTER MEDICATIONS DAILY AND PRE-POUR MEDICATIONS TILL NEXT [facility] VISIT PER MEDICATION LIST.] Future Scheduled Test [...] INTERVENTION.] Future Scheduled Test SKILLED NU RSE FOR O/A AND SKILLED TEACHING OF COPING SKILLS TO MANAGE ANXIETY AND MAINTAIN SAFETY. [code = SKILLED NURSE FOR O/A AND SKILLED TEACHING OF COPING SKILLS TO MANAGE ANXIETY AND MAINTAIN SAFETY.] Future Scheduled Test SKILLED NU RSE TO [...] - LOWERING MY B LOOD PRESSURE Goal 2024-03-19 Patient Goal - LOWERING MY B LOOD PRESSURE Goal Patient Goal - LOWERING MY B LOOD PRESSURE Goal Provider Goal - A PLAN OF CARE WILL BE ESTABLISHED THAT MEETS PATIENT'S [facility] NEEDS AND INCLUDES PATIENT GOAL FOR HOME [...] THE CERTIFICATION PERIOD. Goal Provider Goal - PATIENT/CAREGIVER [...] PERIOD. Goal Provider Goal - PATIENT WILL BE ABLE TO PERFORM DAILY FUNCTIONS AND HAVE OPTIMAL IMPROVEMENT IN LEVEL OF ANXIETY THROUGHOUT CERTIFICATION PERIOD. Goal Provider Goal - PSYCHOSOCIAL NEEDS WILL BE IDENTIFIED AND PLAN IMPLEMENTED TO MINIMIZE RISK THROUGHOUT CERTIFICATION PERIOD. Goal Provider Goal - PATIENT WILL DEMONSTRATE AN INCREASED INTEREST IN SOCIALIZATION AND ACTIVITIES BY THE END OF THE CERTIFICATION PERIOD. Encounters Start Date/Time End Date/Time Encounter Type Admission Type Attending [facility] Care Department Encounter ID Discharge Date Discharge Status Discharge Condition Discharge Reason Percent Goals Met 2023-09-26 00:00:00 2024-05-22 00:00:00 Outpatient RECERTIFIC ERIC CHAMPAGNE [facility] [id number] 8.70
--- OUTSIDE RECORDS SUMMARY | 2024-04-04 12:07 | XMS_ITS | Encounter Summary ---
Author Organization [employer] Address [address] [facility] 7t [place] [address] Care Team Providers Care Member Services Representative Name Role Phone Radha Jamison DO Primary Care Provider [phone] Nelia Sullivan PharmD Unavailable [phone] Encounter Details Date Type Department Care Team ([facility] st Contact Info) Description 01/30/2024 Telephone [facility] MED & PEDS [address] [place], [place] [phone] Radha Jamison DO [address] [facility] [place] [address] Social History Tobacco Use Types Packs/Day Years [...] others, in a hotel, in a senior living, living outside on the street, on a [...] encounter Miscellaneous Notes * Telephone Encounter - Macy Dennison - 01/30/2024 10:28 AM EST documented in this encounter Plan of Treatment Upcoming Encounters Date Type Department Care Team (Late st Contact Info) Description 04/17/2024 9:30 AM EST Clinical Support [facility] MEDICINE [address] [place] [address] Acacia Chakraborty, RN 04/24/2024 2:30 PM EDT Office Visit [facility] ADULT DENTAL [address] [place] [address] Peter Peña DDS [address] [place] [address] 05/09/2024 10:30 AM EDT Medication Management [facility] MED[facility] [address] [place] [address] Nelia Sullivan, PharmD [address] [place] [address] 05/28/2024 9:45 AM EDT Office Visit [facility] MEDICINE [address] [place] [address] Radha Jamison DO [address] [place] [address] documented as of this encounter Goals Goal Patient Goal Type Associated Problems Recent Progress Patient-Stated? Author Record your blood pressure once per day Blood Pressure No Yazmin Sullivansa, PharmD Blood Pressure < 140/90 Blood Pressure 130/64(2024 10:40 AM EST) No Felice Sullivanyssa, PharmD Smoking cessation General No PuiaFeliceNelia, PharmD Patient will adhere to medication regimen [...] documented as of this encounter Care Teams Member Services Representative Relationship Specialty Start Date End Date Radha Jamison DO [address] [place] [address] PCP - General Family Medicine 01/26/12 PuiaNelia, [place] [address] Pharmacist Internal Medicine 08/31/23 Laurel Monterroos Control Cabinet AssemblerTapper Shank 10/27/22 Saige Aguilar 09/26/23 documented as of this encounter
--- OUTSIDE RECORDS SUMMARY | 2024-04-04 12:07 | XMS_ITS | Encounter Summary ---
Author Organization [employer] Address [address] [facility] 7t [place] [address] Care Team Providers Care Code Enforcement Supervisor Name Role Phone Radha Jamison DO Primary Care Provider DelAbdias hardy PharmD Unavailable Unavail able Nelia Sullivan PharmD Unavailable [phone] Reason for Visit * Reason Comments Med Refill Encounter Details Date Type Department Care Team (Late st Contact Info) Description 01/24/2022 Telephone [facility] MED & PEDS [address] [place], [place] [phone] Radha Jamison DO [address] [place] [address] Med Refill Social History Tobacco Use Types [...] Telephone Encounter - Radha Jamison DO - 02/03/2022 3:51 PM EST Rx received by pharmacy on 02/01/22. * Telephone Encounter - Radha Jamison DO - 01/26/2022 4:03 PM EST Rx sent. * Telephone Encounter - Radha Tracy - 01/25/2022 1:07 PM EST Tc from pt requesting a med refill for oxycodone 5 mg documented in this encounter Plan of Treatment Upcoming Encounters Date Type Department Care Team (Late st Contact Info) Description 04/17/2024 9:30 AM EST Clinical Support [facility] MEDICINE [address] [place] [address] Acacia Chakraborty RN 04/24/2024 2:30 PM EDT Office Visit [facility] ADULT DENTAL [address] [place] [address] Peter Peña DDS [address] [place] [address] 05/09/2024 10:30 AM EDT Medication Management [facility] MEDICINE [address] [place] [address] Nelia Sullivan PharmD [address] [place] [address] 05/28/2024 9:45 AM EDT Office Visit [address] [address] Radha Jamison DO [address] [place] [address] documented as of this encounter Visit Diagnoses Diagnosis Chronic bilateral low back pain, unspecified whether sciatica present documented in this encounter Care Teams Code Enforcement Supervisor Relationship Specialty Start Date End Date Radha Jamison DO [address] [place] [address] PCP - General Family Medicine 01/26/12 Abdias Murillo PharmD [address] [place] [address] Pharmacist Internal Medicine 03/21/22 08/30/23 Nelia Sullivan, KeithD [address] [place] [address] Pharmacist Internal Medicine 08/31/23 Laurel Monterroso [employer] Spanish TeacherAccount Executive Agribusiness 10/27/22 Saige Aguilar 09/26/23 documented as of this encounter
--- OUTSIDE RECORDS SUMMARY | 2024-04-04 12:07 | XMS_ITS | Clinical Summary ---
Author Organization Unknown Care Team Providers Care Community Center Director Name Role Phone ADILIA FELIPE, VIOLETA Unavailable Unavailable SURJIT DAVID, ERIC Unavailable Unavailable Payers Payer Name Policy Type Policy Number Effective Date Expira tion Date MEDICAID [facility] [id number] Problems Condition Name Condition Details Condition Category Status Onset Date Resolution Date Last Treatment Date Treating Clinician Comments ESSENTIAL (PRIMARY) HYPERTENSION Active 09-21 00:00: 00 ATHSCL HEART DISEASE OF [place] CORONARY ARTERY W/O ANG PCTRS Active 09-21 [...] CIGARETTES, UNCOMPLICATE D Active 09-21 00:00: 00 [place] (CURRENT) USE OF INSULIN Active 09-21 00:00: 00 [place] (CURRENT) USE OF ANTITHROMBOT ICS/ANTIPLAT ELETS Active [...] release 24 hr 8-05 00:00: 00 Yes [id number] 60 mg AT BEDTIME 60 mg AT BEDTIME (route: oral) Med Classific ation: Cardiovas cular Therapy Agents oxycodone 5 mg tablet 09-04 00:00: 00 11-19 23:59 :00 No [id number] Unavailable 5 mg FIVE TIMES DAILY NEEDED 5 mg FIVE TIMES DAILY NEEDED (route: oral) Med Classific ation: Analgesic , Anti-infl ammatory or Antipyret ic gabapentin 600 mg tablet 09-03 00:00: 00 09-25 23:59 :00 No [id number] 600 mg 2 TIMES DAILY 600 mg 2 TIMES DAILY (route: oral) Med Classific ation: Central Nervous System Agents nicotine 21 mg/24 hr daily transdermal patch 08-30 00:00: 00 Yes [id number] Unavailable 21 mg DAILY 21 mg DAILY (route: transderma l) Med Classific ation: Chemical Dependenc y, Agents to Treat Alcohol Prep Pads 08-29 00:00: 00 Yes [id number] 1 pads, medicat ed DIRECTED THREE TIMES DAILY AND NEEDED 1 pads, medicated DIRECTED THREE TIMES DAILY AND NEEDED (route: topical) Med Classific ation: Antisepti cs and Disinfect ants amitriptyli ne 50 mg tablet 08-29 00:00: 00 Yes [id number] Unavailable 50 mg AT BEDTIME 50 mg AT BEDTIME (route: oral) Med Classific ation: Central Nervous System Agents Asmanex HFA 100 mcg/actuati on aerosol inhaler 08-29 00:00: 00 Yes [id number] 2 puff TWICE DAILY 2 puff TWICE DAILY (route: inhalation ) Med Classific ation: Respirato ry Therapy Agents atorvastati n 80 mg tablet 08-29 00:00: 00 Yes [id number] Unavailable 80 mg BEDTIME 80 mg BEDTIME (route: oral) Med Classific ation: Cardiovas cular Therapy Agents carvedilol 25 mg tablet 08-29 00:00: 00 Yes [id number] Unavailable 25 mg TWICE DAILY 25 mg TWICE DAILY (route: oral) Med Classific ation: Cardiovas cular Therapy Agents clopidogrel 75 mg tablet 08-29 00:00: 00 Yes [id number] 75 mg EVERY AM 75 mg EVERY AM (route: oral) Med Classific ation: Hematolog ical Agents docusate sodium 100 mg capsule 08-29 00:00: 00 09-25 23:59 :00 No [id number] Unavailable 100 mg TWICE DAILY 100 mg TWICE DAILY (route: oral) Med Classific ation: Gastroint estinal Therapy Agents escitalopra m 20 mg tablet 08-29 00:00: 00 Yes [id number] Unavailable 20 mg EVERY PM 20 mg EVERY PM (route: oral) Med Classific ation: Central Nervous System Agents FeroSul 325 mg (65 mg iron) tablet 08-29 00:00: 00 09-25 23:59 :00 No [id number] Unavailable 325 mg TWICE DAILY IN THE MORNING AND AT BEDTIME 325 mg TWICE DAILY IN THE MORNING AND AT BEDTIME (route: oral) Med Classific ation: Electroly te Balance-N utritiona l Products gabapentin 800 mg tablet 08-29 00:00: 00 Yes [id number] 800 mg 2 TIMES DAILY 800 mg 2 TIMES DAILY (route: oral) Med Classific ation: Central Nervous System Agents hydralazine 25 mg tablet 08-29 00:00: 00 Yes [id number] Unavailable 25 mg 3 TIMES DAILY 25 mg 3 TIMES DAILY (route: oral) Med Classific ation: Cardiovas cular Therapy Agents hydralazine 50 mg tablet 08-29 00:00: 00 09-25 23:59 :00 No [id number] Unavailable 50 mg THREE TIMES DAILY IN THE MORNING AT 50 mg THREE TIMES DAILY IN THE MORNING AT (route: oral) Med Classific ation: Cardiovas cular Therapy Agents mirtazapine 45 mg tablet 08-29 00:00: 00 Yes [id number] Unavailable 45 mg AT BEDTIME 45 mg AT BEDTIME (route: oral) Med Classific ation: Central Nervous System Agents omeprazole 20 mg capsule,del ayed release 08-29 00:00: 00 Yes [id number] 20 mg TWICE DAILY 20 mg TWICE DAILY (route: oral) Med Classific ation: Gastroint estinal Therapy Agents lisinopril 40 mg tablet 09-25 00:00: 00 Yes [id number] 40 mg DAILY 40 mg DAILY (route: oral) Med Classific ation: Cardiovas cular Therapy Agents metformin 1,000 mg tablet 09-25 00:00: 00 Yes [id number] 1000 mg 2 TIMES DAILY 1000 mg 2 TIMES DAILY (route: oral) Med Classific ation: Endocrine multivitami n tablet 09-25 00:00: 00 Yes [id number] 1 tablet DAILY 1 tablet DAILY (route: oral) Med Classific ation: Electroly te Balance-N utritiona l Products nifedipine ER 60 mg tablet,exte nded release 09-25 00:00: 00 Yes [id number] 60 mg EVERY PM 60 mg EVERY PM (route: oral) Med Classific ation: Cardiovas cular Therapy Agents pioglitazon e 15 mg tablet 09-25 00:00: 00 Yes [id number] 15 mg DAILY 15 mg DAILY (route: oral) Med Classific ation: Endocrine Tresiba FlexTouch U-100 insulin 100 unit/mL (3 mL) subcutane s pen 09-25 00:00: 00 Yes [id number] 10 In unit DAILY 10 In unit [...] AWARENESS FOR SAFETY AND WILL NOTIFY CLINICAL SECTION LEADER AND PHYSICIAN/PROVIDER WITH ANY CHANGE IN CONDITION. [code = SKILLED NURSE WILL MAINTAIN SITUATIONAL AWARENESS FOR SAFETY AND WILL NOTIFY CLINICAL SECTION LEADER AND PHYSICIAN/PROVIDER WITH ANY CHANGE IN CONDITION.] [...] MEDICATIONS DAILY AND PRE-POUR MEDICATIONS TILL NEXT INTERMEDIATE VISIT PER MEDICATION LIST. [code = SKILLED NURSE TO ADMINISTER MEDICATIONS DAILY AND PRE-POUR MEDICATIONS TILL NEXT INTERMEDIATE VISIT PER MEDICATION LIST.] Future Scheduled Test [...] CARE WILL BE ESTABLISHED THAT MEETS PATIENT'S INTERMEDIATE NEEDS AND INCLUDES PATIENT GOAL FOR HOME [...] End Date/Time Encounter Type Admission Type Attending [facility] Care Department Encounter ID Discharge Date Discharge Status Discharge Condition Discharge Reason Percent Goals Met 2023-09-26 00:00:00 2024-05-22 00:00:00 Outpatient RECERTIFIC ERIC CHAMPAGNE [facility] [id number] 8.70
--- OUTSIDE RECORDS SUMMARY | 2024-04-04 12:07 | XMS_ITS | Encounter Summary ---
Author Organization [employer] Address [address] [facility] [address] [place] [address] Care Team Providers Care Bulk Plant Manager Name Role Phone Radha Jamison DO Primary Care Provider [phone] Abdias Murillo PharmD Unavailable Unavail able Nelia Sullivan PharmD Unavailable [phone] Reason for Visit * Reason Comments Med Refill Encounter Details Date Type Department Care Team (Late st Contact Info) Description 02/15/2023 Refill [facility] MED[facility]INE [address] [place], [place] [phone] Radha Jamison DO [address] [place] [address] Chronic bilateral low back pain, unspecified whether [...] 9:30 AM EST Clinical Support [facility] MEDICINE [address] [place] [address] Acacia Chakraborty RN 04/24/2024 2:30 PM EDT Office Visit [facility] ADULT DENTAL [address] [place] [address] Peter Peña DDS [address] [place] [address] 05/09/2024 10:30 AM EDT Medication Management [address] [address] Nelia Sullivan PharmD [address] [place] [address] 05/28/2024 9:45 AM EDT Office Visit [address] [address] Radha Jamison DO [address] [place] [address] documented as of this encounter Goals Goal [...] documented as of this encounter Care Teams Bulk Plant Manager Relationship Specialty Start Date End Date Radha Jamison DO [address] [place] [address] PCP - General Family Medicine 01/26/12 Abdias Murillo, Camron [address] [place] [address] Pharmacist Internal Medicine 03/21/22 08/30/23 Nelia Sullivan PharmD [address] [place] [address] Pharmacist Internal Medicine 08/31/23 Laurel Monterroso Motor Builder WinderUpholstery Department Supervisor 10/27/22 Saige Aguilar 09/26/23 documented as of this encounter
--- OUTSIDE RECORDS SUMMARY | 2024-04-04 12:07 | XMS_ITS | Encounter Summary ---
Author Organization [employer] Address [address] [facility] [address]t [place] [address] Care Team Providers Care Weight Count Operator Name Role Phone Radha Jamison DO Primary Care Provider [phone] Abdias Murillo PharmD Unavailable Unavail able Nelia Sullivan PharmD Unavailable [phone] Reason for Visit * Reason Comments Med Refill Encounter Details Date Type Department Care Team (Late st Contact Info) Description 12/22/2022 Refill [facility] MEDICINE [address] [place] [address] Radha Jamison DO [address] [place] [address] Chronic bilateral low back pain, unspecified whether [...] [facility] MEDICINE [address] [place] [address] Acacia Chakraborty RN 04/24/2024 2:30 PM EDT Office Visit [facility] ADULT DENTAL [address] [place] [address] Peter Peña DDS [address] [place] [address] 05/09/2024 10:30 AM EDT Medication Management [address] [address] Nelia Sullivan PharmD [address] [place] [address] 05/28/2024 9:45 AM EDT Office Visit [address] [address] Radha Jamison DO [address] [place] [address] documented as of this encounter Goals Goal [...] documented as of this encounter Care Teams Weight Count Operator Relationship Specialty Start Date End Date Radha Jamison DO [address] [place] [address] PCP - General Family Medicine 01/26/12 Abdias Murillo, Camron [address] [place] [address] Pharmacist Internal Medicine 03/21/22 08/30/23 Nelia Sullivan PharmD [address] [place] [address] Pharmacist Internal Medicine 08/31/23 Laurel Monterroso Doll Wigs HacklerWorsted Winder 10/27/22 Saige Aguilar 09/26/23 documented as of this encounter
--- OUTSIDE RECORDS SUMMARY | 2024-04-04 12:07 | XMS_ITS | Encounter Summary ---
Author Organization [facility] Address [address] [place] [address] Care Team Providers Care Glue Clamp Operator Name Role Phone Radha Jamison DO Primary Care Provider [phone] Abdias Murillo PharmD Unavailable Unavail able Nelia Sullivan PharmD Unavailable [phone] Reason for Visit * Reason Comments Med Refill Encounter Details Date Type Department Care Team (Late Contact Info) Description 07/20/2022 Refill [facility] [address] [place] [address] Radha Jamison DO [address] [place] [address] Hypertension, unspecified type Social History Tobacco Use [...] suspected to have Coronavirus/COVID-19? No / Unsure 07/12/2022 1:40 PM EDT documented as of this encounter Plan of Treatment Upcoming Encounters Date Type Department Care Team (Late Contact Info) Description 04/17/2024 9:30 AM EST Clinical Support [facility] [address] [place] [address] Acacia Chakraborty RN 04/24/2024 2:30 PM EDT Office Visit [facility] [address] [place] [address] Peter Peña DDS [address] [place] [address] 05/09/2024 10:30 AM EDT Medication Management [facility] [address] [place] [address] Nelia Sullivan PharmD [address] [place] [phone] 05/28/2024 9:45 AM EDT Office Visit [facility] [address] [place] [phone] Radha Jamison DO [address] [place] [phone] documented as of this encounter Goals Goal [...] documented as of this encounter Care Teams Glue Clamp Operator Relationship Specialty Start Date End Date Radha Jamison DO [address] [place] [phone] PCP - General Family Medicine 01/26/12 Abdias Murillo PharmD [address] [place] [phone] Pharmacist Internal Medicine 03/21/22 08/30/23 Nelia Sullivan PharmD [address] [place] [phone] Pharmacist Internal Medicine 08/31/23 Laurel Monterroso Time Signal WirerJunior Database Administrator 10/27/22 Saige Aguilar 09/26/23 documented as of this encounter
--- OUTSIDE RECORDS SUMMARY | 2024-04-04 12:07 | XMS_ITS | Encounter Summary ---
Author Organization [facility] Address [address] [facility] 7t [place] [address] Care Team Providers Care Teacher Lip Reading Name Role Phone Radha Jamison DO Primary Care Provider [phone] Abdias Murillo PharmD Unavailable Unavail able Nelia Sullivan PharmD Unavailable Encounter Details Date Type Department Care Team (Late st Contact Info) Description 02/03/2022 Orders Only [facility] [address] [place] [phone] Radha Jamison DO [address] [place] [address] Social History Tobacco Use Types Packs/Day Years [...] Description 04/17/2024 9:30 AM EST Clinical Support [facility] [address] [place] [phone] Acacia Chakraborty RN 04/24/2024 2:30 PM EDT Office Visit [facility] [address] [place] [phone] Peter Peña, DDS [address] [place] [address] 05/09/2024 10:30 AM EDT Medication Management [facility] [address] [place] [address] Nelia Sullivan, PharmD [address] [place] [phone] 05/28/2024 9:45 AM EDT Office Visit [facility] [address] [place] [address] Radha Jamison DO [address] [place], [place] [phone] documented as of this encounter Procedures Procedure Name Priority Date/Time Associated Diagnosis Comments CBC WITH AUTO DIFFERENTIAL Routine 04/24/2022 4:19 PM EDT SED RATE BY MODIFIED WESTERGREN Routine 04/24/2022 4:19 PM EDT C-REACTIVE PROTEIN Routine 04/24/2022 4: 19 PM EDT MAGNESIUM Routine 04/24/2022 4:19 PM EDT HEPATIC FUNCTION PANEL Routine 4:19 PM EDT BASIC METABOLIC PANEL Routine 04/24/2022 4:19 PM EDT URINALYSIS, COMPLETE, WITH REFLEX TO CULTURE Routine 04/17/2022 10:53 AM EST CBC WITH AUTO DIFFERENTIAL Routine 04/17/2022 8:21 AM EST SED RATE BY MODIFIED WESTERGREN Routine 04/17/2022 8:21 AM EST C-REACTIVE PROTEIN Routine 04/17/2022 8: 21 AM EST MAGNESIUM Routine 04/17/2022 8:21 AM EST LIPASE Routine 04/17/2022 8:21 AM EST HEPATIC FUNCTION PANEL Routine 8:21 AM EST BASIC METABOLIC PANEL Routine 04/17/2022 8:21 AM EST CREATININE, SERUM Routine 04/13/2022 7:3 3 AM EST CBC WITH AUTO DIFFERENTIAL Routine 04/13/2022 7:33 AM EST UREA NITROGEN (BUN) Routine 04/13/2022 7 :33 AM EST GLUCOSE, WHOLE BLOOD Routine 04/13/2022 7:27 AM EST HIGH SENSITIVITY TROPONIN I Routine 04/03/2022 8:36 PM EST CBC WITH AUTO DIFFERENTIAL Routine 04/03/2022 8:36 PM EST LIPASE Routine 04/03/2022 8:36 PM EST HEPATIC FUNCTION PANEL Routine 8:36 PM EST BASIC METABOLIC PANEL Routine 04/03/2022 8:36 PM EST GLUCOSE, WHOLE BLOOD Routine 04/03/2022 7:56 PM EST HIGH SENSITIVITY TROPONIN I Routine 03/09/2022 5:39 PM EST SARS COV2/INFLUENZA A/B AND RSV RNA QL NAAT Routine 03/09/2022 5:39 PM EST CBC WITH AUTO DIFFERENTIAL Routine 03/09/2022 5:39 PM EST PROTHROMBIN TIME-INR Routine 03/09/2022 5:39 PM EST B TYPE NATRIURETIC PEPTIDE (BNP) Routine 03/09/2022 5:39 PM EST COMPREHENSIVE METABOLIC PANEL Routine 03/09/2022 5:39 PM EST GLUCOSE, WHOLE BLOOD Routine 03/01/2022 12:41 AM EST GLUCOSE, WHOLE BLOOD Routine 02/28/2022 10:39 PM EST HIGH SENSITIVITY TROPONIN I Routine 02/28/2022 9:42 PM EST CBC Routine 02/28/2022 9:42 PM EST COMPREHENSIVE METABOLIC PANEL Routine 02/28/2022 9:42 PM EST GLUCOSE, WHOLE BLOOD Routine 02/28/2022 9:38 PM EST URINALYSIS, COMPLETE, WITH REFLEX TO CULTURE Routine 02/22/2022 3:20 PM EST HIGH SENSITIVITY TROPONIN I Routine 02/22/2022 3:14 PM EST SARS COV2/INFLUENZA A/B AND RSV RNA QL NAAT Routine 02/22/2022 3:14 PM EST CBC WITH AUTO DIFFERENTIAL Routine 02/22/2022 3:14 PM EST MAGNESIUM Routine 02/22/2022 3:14 PM EST HEPATIC FUNCTION PANEL Routine 3:14 PM EST BASIC METABOLIC PANEL Routine 02/22/2022 3:14 PM EST CULTURE, URINE, ROUTINE Routine 02/22/2022 12:00 AM EST documented in this encounter Results * (ABNORMAL) Sed Rate by Modified Westergren (04/24/2022 4:19 PM EDT) Erythrocyte Sedimentation Rate 23(H) 0 - 20 MM/HR [facility] Comment:Patients with polycy themia and many hemoglobin abnormalitiesmay have depressed sed rates whereas patients with anemiamay have elevated sed rates. 04/24/2022 4:19 PM EDT 04/24/2022 4:27 PM EDT [facility] External Provider LAB BLO OD ORDERABLES Final Result Performing Organization Address [facility] Co de Phone Number [facility] [address] [place] [phone] * C-reactive Protein (04/24/2022 4:19 PM EDT) [facility] C Reactive Protein 0.28 < or = 0.50 mg/dL [facility] 04/24/2022 4:19 PM EDT 04/24/2022 4:22 PM EDT [facility] External Provider LAB BLO OD ORDERABLES Final Result Performing Organization Address [facility] Co de Phone Number [facility] [address] [place] [phone] * Magnesium (04/24/2022 4:19 PM EDT) Pathologist [facility] Magnesium 1.7 1.6 - 2.6 mg/dL [facility] 04/24/2022 4:19 PM EDT 04/24/2022 4:22 PM EDT [facility] External Provider LAB BLO OD ORDERABLES Final Result Performing Organization Address [facility] Co de Phone Number [facility] [address] [place] [address] [phone] * (ABNORMAL) Basic Metabolic Panel (04/24/2022 4:19 PM EDT) Pathologist [facility] Sodium 135 135 - 145 mmol/L [facility] Potassium 4.7 3.3 - 5.1 mmol/L [facility] Chloride 100 96 - 108 mmol/L [facility] Carbon Dioxide 27 22 - 29 mmol/L [facility] Anion Gap 13 12 - 20 [facility] Urea Nitrogen (BUN) 20(H) 9 - 16 mg/dL [facility] Creatinine, Serum 1.01 0.5 - 1.4 mg/dL [facility] Creatinine Clr Calc Pharmacy 48.8 [facility] Comment:Provided height and weight: 152.4 cm,62.4 kg.eGFR (calculated from the MDRD study equation) and eCrCl(calculated from the Cockcroft-Gault equation) are based ondifferent parameters and may not yield comparable results.If eCrCl result is absurd, please check patient'sheight/weight. Estimated Glomerular Filt Rate 56 [facility] Comment:NOTE: For -Am erican individuals, multiply the result by 1.210.Chronic Kidney Disease: Estimated GFR < 60 mL/min/[id number] Kidney Disease: Estimated GFR < 15 mL/min/1.73m2 Glucose 269(H) 60 - 115 mg/dL [facility] Calcium 9.2 8.4 - 10.2 mg/dL [facility] 04/24/2022 4:19 PM EDT 04/24/2022 4:22 PM EDT us [facility] External Provider LAB BLO OD ORDERABLES Final Result [facility] [address] [place] [address] [phone] * Hepatic Function Panel (04/24/2022 4:19 PM EDT) Bilirubin, Total 0.6 0.0 - 1.0 mg/dL [facility] Bilirubin, Direct <0.2 0.0 - 0.5 mg/dL [facility] Aspartate Amino Transferase 11 5 - 31 U/L [facility] Alanine Aminotransferase 6 0 - 31 U/L [facility] Total Protein 6.5 6.5 - 8.0 g/dL [facility] Albumin Level 4.0 3.5 - 5.0 g/dL [facility] Alkaline Phosphatase 80 39 - 117 U/L [facility] 04/24/2022 4:19 PM EDT 04/24/2022 4:22 PM EDT us [facility] External Provider LAB BLO OD ORDERABLES Final Result [facility] [address] [place] [address] [phone] * (ABNORMAL) CBC auto differential (04/24/2022 4:19 PM EDT) White Blood Count 7.3 4.8 - 10.8 X10*3/uL [facility] Red Blood Count 4.14(L) 4.20 - 5.50 X10*6/uL [facility] Hemoglobin 12.1 12.0 - 16.0 g/dl [facility] Hematocrit 36.6(L) 37.0 - 47.0 % [facility] Mean Corpuscular Volume 88.4 80.0 - 98.0 fL [facility] Mean Corpuscular Hemoglobin 29.2 27.0 - 33.0 pg [facility] Mean Corpuscular HGB Conc 33.1 31.0 - 35.0 g/dl [facility] Red Cell Distribution Width 13.4 11.0 - 16.0 % [facility] Platelet Count 333 160 - 400 X10*3/uL [facility] Mean Platelet Volume 8.9(L) 9.4 - 12.3 fL [facility] Neutrophils Percent Auto 62.4 45 - 73 % [facility] Imm Gran Pct Auto 0.3 0.0 - 0.4 % [facility] Lymphocytes Percent Auto 28.8 20 - 40 % [facility] Monocytes Percent Auto 5.3 2 - 11 % [facility] Eosinophils Percent Auto 2.7 0 - 4 % [facility] Basophils Percent Auto 0.5 0 - 2 % [facility] NRBC Pct Auto 0.0 0.0 - 0.2 /100WBC [facility] Neutrophils Absolute Auto 4.6 2.0 - 8.3 x10*3/uL [facility] Imm Gran Abs Auto 0.02 0.00 - 0.03 X10*3/uL [facility] Lymphocytes Absolute Auto 2.1 1.2 - 4.9 X10*3/uL [facility] Monocytes Absolute Auto 0.4 0.1 - 1.2 X10*3/uL [facility] Eosinophils Absolute Auto 0.2 0.0 - 0.4 X10*3/uL [facility] Basophils Absolute Auto 0.0 0.0 - 0.2 X10*3/uL [facility] NRBC Abs Auto 0.000 0.0 - 0.012 X10*3/uL [facility] 04/24/2022 4:19 PM EDT 04/24/2022 4:22 PM EDT us [facility] External Provider LAB BLO OD ORDERABLES Final Result [facility] [address] [place] [address] [phone] * (ABNORMAL) Urinalysis, Complete, with Reflex to Culture (04/17/2022 10:53 AM EST) Color Urine Yellow [facility] Appearance Urine Clear [facility] PH 7.5 5.0 - 9.0 [facility] Glucose Urine UA 100(A) Negative mg/dL [facility] Urine Blood Negative Negative [facility] Specific Craig - Urine >=1.030(H) 1.005 - 1.025 [facility] Urine Protein 100 (2+)(A) Neg-Trace mg/dL [facility] Urine Ketones Negative Negative mg/dL [facility] Nitrite Urine Negative Negative [facility] Leukocyte Esterase Urine Negative Negative [facility] RBC Urine 3-5(A) 0 - 2 /HPF [facility] Urine WBC 0-5 0 - 5 /HPF [facility] Urine Squamous Epithelial Cell 3-5 0 - 2 /HPF [facility] Urine Bacteria None Seen None Seen [facility] Hyaline Casts, Urine 0-2 0 - 2 /LPF [facility] 04/17/2022 10:5 3 AM EST 04/17/2022 10:56 AM EST Narrative [facility] - 04/17/2022 11:06 AM EST Urine, Clean Catch [facility] External Provider LAB URI NE ORDERABLES Final Result Performing Organization Address [facility] Co de Phone Number [facility] [address] [place] [address] [phone] * (ABNORMAL) Sed Rate by Modified Westergren (04/17/2022 8:21 AM EST) Erythrocyte Sedimentation Rate 23(H) 0 - 20 MM/HR [facility] Comment:Patients with polycy themia and many hemoglobin abnormalitiesmay have depressed sed rates whereas patients with anemiamay have elevated sed rates. 04/17/2022 8:21 AM EST 04/17/2022 8:41 AM EST [facility] External Provider LAB BLO OD ORDERABLES Final Result Performing Organization Address [facility] Co de Phone Number [facility] [address] [place] [address] [phone] * Lipase (04/17/2022 8:21 AM EST) Lipase 10 8 - 78 U/L [facility] 04/17/2022 8:21 AM EST 04/17/2022 8:24 AM EST [facility] External Provider LAB BLO OD ORDERABLES Final Result Performing Organization Address [facility] Co de Phone Number [facility] [address] [place] [address] [phone] * C-reactive Protein (04/17/2022 8:21 AM EST) C Reactive Protein 0.23 < or = 0.50 mg/dL [facility] 04/17/2022 8:21 AM EST 04/17/2022 8:24 AM EST [facility] External Provider LAB BLO OD ORDERABLES Final Result Performing Organization Address [facility] Number [facility] [address] [place] [address] [phone] * Magnesium (04/17/2022 8:21 AM EST) Magnesium 1.6 1.6 - 2.6 mg/dL [facility] 04/17/2022 8:21 AM EST 04/17/2022 8:24 AM EST [facility] External Provider LAB BLO OD ORDERABLES Final Result Performing Organization Address [facility] Phone Number [facility] [address] [place] [address] [phone] * (ABNORMAL) Hepatic Function Panel (04/17/2022 8:21 AM EST) Bilirubin, Total 0.7 0.0 - 1.0 mg/dL [facility] Bilirubin, Direct <0.2 0.0 - 0.5 mg/dL [facility] Aspartate Amino Transferase 10 5 - 31 U/L [facility] Alanine Aminotransferase 7 0 - 31 U/L [facility] Total Protein 6.2(L) 6.5 - 8.0 g/dL [facility] Albumin Level 3.8 3.5 - 5.0 g/dL [facility] Alkaline Phosphatase 71 39 - 117 U/L [facility] 04/17/2022 8:21 AM EST 04/17/2022 8:24 AM EST us [facility] External Provider LAB BLO OD ORDERABLES Final Result [facility] [address] [place] [address] [phone] * (ABNORMAL) Basic Metabolic Panel (04/17/2022 8:21 AM EST) Sodium 138 135 - 145 mmol/L [facility] Potassium 4.9 3.3 - 5.1 mmol/L [facility] Chloride 104 96 - 108 mmol/L [facility] Carbon Dioxide 26 22 - 29 mmol/L [facility] Anion Gap 13 12 - 20 [facility] Urea Nitrogen (BUN) 17(H) 9 - 16 mg/dL [facility] Creatinine, Serum 0.79 0.5 - 1.4 mg/dL [facility] Creatinine Clr Calc Pharmacy 66.3 [facility] Comment:Provided height and weight: 157.48 cm,63.503 kg.eGFR (calculated from the MDRD study equation) and eCrCl(calculated from the Cockcroft-Gault equation) are based ondifferent parameters and may not yield comparable results.If eCrCl result is absurd, please check patient'sheight/weight. Estimated Glomerular Filt Rate >60 [facility] Comment:NOTE: For -Am erican individuals, multiply the result by 1.210.Chronic Kidney Disease: Estimated GFR < 60 mL/min/[id number] Kidney Disease: Estimated GFR < 15 mL/min/1.73m2 Glucose 272(H) 60 - 115 mg/dL [facility] Calcium 9.1 8.4 - 10.2 mg/dL [facility] 04/17/2022 8:21 AM EST 04/17/2022 8:24 AM EST us [facility] External Provider LAB BLO OD ORDERABLES Final Result [facility] [address] [place] [address] [phone] * (ABNORMAL) CBC auto differential (04/17/2022 8:21 AM EST) White Blood Count 5.7 4.8 - 10.8 X10*3/uL [facility] Red Blood Count 4.01(L) 4.20 - 5.50 X10*6/uL [facility] Hemoglobin 11.7(L) 12.0 - 16.0 g/dl [facility] Hematocrit 35.9(L) 37.0 - 47.0 % [facility] Mean Corpuscular Volume 89.5 80.0 - 98.0 fL [facility] Mean Corpuscular Hemoglobin 29.2 27.0 - 33.0 pg [facility] Mean Corpuscular HGB Conc 32.6 31.0 - 35.0 g/dl [facility] Red Cell Distribution Width 13.4 11.0 - 16.0 % [facility] Platelet Count 309 160 - 400 X10*3/uL [facility] Mean Platelet Volume 9.3(L) 9.4 - 12.3 fL [facility] Neutrophils Percent Auto 60.9 45 - 73 % [facility] Imm Gran Pct Auto 0.4 0.0 - 0.4 % [facility] Lymphocytes Percent Auto 27.3 20 - 40 % [facility] Monocytes Percent Auto 6.3 2 - 11 % [facility] Eosinophils Percent Auto 4.4(H) 0 - 4 % [facility] Basophils Percent Auto 0.7 0 - 2 % [facility] NRBC Pct Auto 0.0 0.0 - 0.2 /100WBC [facility] Neutrophils Absolute Auto 3.5 2.0 - 8.3 x10*3/uL [facility] Imm Gran Abs Auto 0.02 0.00 - 0.03 X10*3/uL [facility] Lymphocytes Absolute Auto 1.6 1.2 - 4.9 X10*3/uL [facility] Monocytes Absolute Auto 0.4 0.1 - 1.2 X10*3/uL [facility] Eosinophils Absolute Auto 0.3 0.0 - 0.4 X10*3/uL [facility] Basophils Absolute Auto 0.0 0.0 - 0.2 X10*3/uL [facility] NRBC Abs Auto 0.000 0.0 - 0.012 X10*3/uL [facility] 04/17/2022 8:21 AM EST 04/17/2022 8:24 AM EST [facility] External Provider LAB BLO OD ORDERABLES Final Result Performing Organization Address [facility] Co de Phone Number [facility] [address] [place] [phone] * Creatinine, Serum (04/13/2022 7:33 AM EST) Creatinine, Serum 0.75 0.5 - 1.4 mg/dL [facility] Creatinine Clr Calc Pharmacy 70.3 [facility] Comment:Provided height and weight: 157.48 cm,64.41 kg.eGFR (calculated from the MDRD study equation) and eCrCl(calculated from the Cockcroft-Gault equation) are based ondifferent parameters and may not yield comparable results.If eCrCl result is absurd, please check patient'sheight/weight. Estimated Glomerular Filt Rate >60 [facility] Comment:NOTE: For -Am erican individuals, multiply the result by 1.210.Chronic Kidney Disease: Estimated GFR < 60 mL/min/[id number] Kidney Disease: Estimated GFR < 15 mL/min/1.73m2 04/13/2022 7:33 AM EST 04/13/2022 7:38 AM EST [facility] External Provider LAB BLO OD ORDERABLES Final Result [facility] [address] [place] [address] [phone] * BUN (Blood Urea Nitrogen) (04/13/2022 7:33 AM EST) Urea Nitrogen (BUN) 12 9 - 16 mg/dL [facility] 04/13/2022 7:33 AM EST 04/13/2022 7:38 AM EST us [facility] External Provider LAB BLO OD ORDERABLES Final Result Performing Organization Address City/[facility] Co de Phone Number [facility] [address] [place] [address] [phone] * (ABNORMAL) CBC auto differential (04/13/2022 7:33 AM EST) White Blood Count 6.6 4.8 - 10.8 X10*3/uL [facility] Red Blood Count 4.12(L) 4.20 - 5.50 X10*6/uL [facility] Hemoglobin 12.1 12.0 - 16.0 g/dl [facility] Hematocrit 36.6(L) 37.0 - 47.0 % [facility] Mean Corpuscular Volume 88.8 80.0 - 98.0 fL [facility] Mean Corpuscular Hemoglobin 29.4 27.0 - 33.0 pg [facility] Mean Corpuscular HGB Conc 33.1 31.0 - 35.0 g/dl [facility] Red Cell Distribution Width 13.6 11.0 - 16.0 % [facility] Platelet Count 291 160 - 400 X10*3/uL [facility] Mean Platelet Volume 9.0(L) 9.4 - 12.3 fL [facility] Neutrophils Percent Auto 55.5 45 - 73 % [facility] Imm Gran Pct Auto 0.2 0.0 - 0.4 % [facility] Lymphocytes Percent Auto 33.7 20 - 40 % [facility] Monocytes Percent Auto 6.5 2 - 11 % [facility] Eosinophils Percent Auto 3.6 0 - 4 % [facility] Basophils Percent Auto 0.5 0 - 2 % [facility] NRBC Pct Auto 0.0 0.0 - 0.2 /100WBC [facility] Neutrophils Absolute Auto 3.7 2.0 - 8.3 x10*3/uL [facility] Imm Gran Abs Auto 0.01 0.00 - 0.03 X10*3/uL [facility] Lymphocytes Absolute Auto 2.2 1.2 - 4.9 X10*3/uL [facility] Monocytes Absolute Auto 0.4 0.1 - 1.2 X10*3/uL [facility] Eosinophils Absolute Auto 0.2 0.0 - 0.4 X10*3/uL [facility] Basophils Absolute Auto 0.0 0.0 - 0.2 X10*3/uL [facility] NRBC Abs Auto 0.000 0.0 - 0.012 X10*3/uL [facility] 04/13/2022 7:33 AM EST 04/13/2022 7:38 AM EST [facility] External Provider LAB BLO OD ORDERABLES Final Result Performing Organization Address [facility]/ZIP Co de Phone Number [facility] [address] [place] [phone] * (ABNORMAL) GLUCOSE, WHOLE BLOOD (04/13/2022 7:27 AM EST) Glucose, Whole Blood 197(H) 60 - 115 mg/dL [facility] Comment:METER #: [id number] 04/13/2022 7:27 AM EST 04/13/2022 7:31 AM EST [facility] External Provider LAB BLO OD ORDERABLES Final Result Performing Organization Address City/[facility]/ZIP Co de Phone Number [facility] [address] [place] [address] [phone] * HIGH SENSITIVITY TROPONIN I (04/03/2022 8:36 PM EST) [facility] TROPONIN I HIGH SENSITIVITY 6.0 <3.5 - 17.0 ng/L [facility] Comment:The Ibrahim high sens itivity Troponin-I results should beused in conjunction with other diagnostic information suchas ECG, clinical observations and information, and patientsymptoms to aid in the diagnosis of GA. 04/03/2022 8:3 6 PM EST 04/03/2022 8:38 PM EST [facility] External Provider LAB BLO OD ORDERABLES Final Result Performing Organization Address City/[facility]/ZIP Co de Phone Number [facility] [address] [place] [phone] * Lipase (04/03/2022 8:36 PM EST) [facility] Lipase 10 8 - 78 U/L [facility] 04/03/2022 8:36 PM EST 04/03/2022 8:38 PM EST [facility] External Provider LAB BLO OD ORDERABLES Final Result Performing Organization Address City/[facility] Co de Phone Number [facility] [address] [place] [phone] * (ABNORMAL) Basic Metabolic Panel (04/03/2022 8:36 PM EST) [facility] Sodium 138 135 - 145 mmol/L [facility] Potassium 3.9 3.3 - 5.1 mmol/L [facility] Chloride 104 96 - 108 mmol/L [facility] Carbon Dioxide 27 22 - 29 mmol/L [facility] Anion Gap 11(L) 12 - 20 [facility] Urea Nitrogen (BUN) 11 9 - 16 mg/dL [facility] Creatinine, Serum 0.74 0.5 - 1.4 mg/dL [facility] Creatinine Clr Calc Pharmacy 70.7 [facility] Comment:Provided height and weight: 157.48 cm,63.503 kg.eGFR (calculated from the MDRD study equation) and eCrCl(calculated from the Cockcroft-Gault equation) are based ondifferent parameters and may not yield comparable results.If eCrCl result is absurd, please check patient'sheight/weight. Estimated Glomerular Filt Rate >60 [facility] Comment:NOTE: For -Am erican individuals, multiply the result by 1.210.Chronic Kidney Disease: Estimated GFR < 60 mL/min/1.10v6Epfdkj Kidney Disease: Estimated GFR < 15 mL/min/1.73m2 Glucose 246(H) 60 - 115 mg/dL [facility] Calcium 9.0 8.4 - 10.2 mg/dL [facility] 04/03/2022 8:36 PM EST 04/03/2022 8:38 PM EST us [facility] External Provider LAB BLO OD ORDERABLES Final Result [facility] [address] [place] [phone] * (ABNORMAL) Hepatic Function Panel (04/03/2022 8:36 PM EST) Bilirubin, Total 0.6 0.0 - 1.0 mg/dL [facility] Bilirubin, Direct 0.2 0.0 - 0.5 mg/dL [facility] Aspartate Amino Transferase 10 5 - 31 U/L [facility] Alanine Aminotransferase 8 0 - 31 U/L [facility] Total Protein 5.8(L) 6.5 - 8.0 g/dL [facility] Albumin Level 3.7 3.5 - 5.0 g/dL [facility] Alkaline Phosphatase 76 39 - 117 U/L [facility] 04/03/2022 8:36 PM EST 04/03/2022 8:38 PM EST us [facility] External Provider LAB BLO OD ORDERABLES Final Result [facility] [address] [place] [phone] * (ABNORMAL) CBC auto differential (04/03/2022 8:36 PM EST) White Blood Count 6.0 4.8 - 10.8 X10*3/uL [facility] Red Blood Count 4.10(L) 4.20 - 5.50 X10*6/uL [facility] Hemoglobin 12.0 12.0 - 16.0 g/dl [facility] Hematocrit 35.6(L) 37.0 - 47.0 % [facility] Mean Corpuscular Volume 86.8 80.0 - 98.0 fL [facility] Mean Corpuscular Hemoglobin 29.3 27.0 - 33.0 pg [facility] Mean Corpuscular HGB Conc 33.7 31.0 - 35.0 g/dl [facility] Red Cell Distribution Width 13.3 11.0 - 16.0 % [facility] Platelet Count 276 160 - 400 X10*3/uL [facility] Mean Platelet Volume 9.2(L) 9.4 - 12.3 fL [facility] Neutrophils Percent Auto 58.2 45 - 73 % [facility] Imm Gran Pct Auto 0.2 0.0 - 0.4 % [facility] Lymphocytes Percent Auto 32.9 20 - 40 % [facility] Monocytes Percent Auto 6.0 2 - 11 % [facility] Eosinophils Percent Auto 2.2 0 - 4 % [facility] Basophils Percent Auto 0.5 0 - 2 % [facility] NRBC Pct Auto 0.0 0.0 - 0.2 /100WBC [facility] Neutrophils Absolute Auto 3.5 2.0 - 8.3 x10*3/uL [facility] Imm Gran Abs Auto 0.01 0.00 - 0.03 X10*3/uL [facility] Lymphocytes Absolute Auto 2.0 1.2 - 4.9 X10*3/uL [facility] Monocytes Absolute Auto 0.4 0.1 - 1.2 X10*3/uL [facility] Eosinophils Absolute Auto 0.1 0.0 - 0.4 X10*3/uL [facility] Basophils Absolute Auto 0.0 0.0 - 0.2 X10*3/uL [facility] NRBC Abs Auto 0.000 0.0 - 0.012 X10*3/uL [facility] 04/03/2022 8:36 PM EST 04/03/2022 8:38 PM EST [facility] External Provider LAB BLO OD ORDERABLES Final Result [facility] [address] [place] [phone] * (ABNORMAL) GLUCOSE, WHOLE BLOOD (04/03/2022 7:56 PM EST) Glucose, Whole Blood 227(H) 60 - 115 mg/dL [facility] Comment:METER #: [id number] 04/03/2022 7:56 PM EST 04/03/2022 8:01 PM EST [facility] External Provider LAB BLO OD ORDERABLES Final Result Performing Organization Address City/[facility]/ZIP Co de Phone Number [facility] [address] [place] [phone] * (ABNORMAL) B Type Natriuretic Peptide (BNP) (03/09/2022 5:39 PM EST) Pathologist [facility] B Type Natriuretic Peptide 125(H) <100 pg/mL [facility] Comment:For those patients w ho are being treated with Natrecor(nesiritide, recombinant BNP), BNP testing should beperformed at least two hours post treatment in order toensure that only endogenous levels of BNP are detected. 03/09/2022 5:39 PM EST 03/09/2022 6:48 PM EST [facility] External Provider LAB BLO OD ORDERABLES Final Result Performing Organization Address [facility] de Phone Number [facility] [address] [place] [phone] * SARS-CoV-2 RNA, Influenza A/B, and RSV RNA, Ql NAAT (03/09/2022 5:39 PM EST) Pathologist [facility] Influenza A PCR NEGATIVE Negative [facility] Influenza B PCR NEGATIVE Negative [facility] Resp Syncy Virus RNA Qual PCR NEGATIVE Negative [facility] SARS COV2 PCR NEGATIVE Negative [facility] SARS/Flu/RSV Note See Note [facility] Comment:All test results mus t be correlated with clinical findings.Negative results do not preclude SARS-CoV2, influenza Avirus, influenza B virus and/or RSV infectionand should not be used as the sole basis for treatment orother patient management decisions. Negative results must becombined with clinical observations, patient history, andepidemiological information.This test has not been evaluated for monitoring treatment ofinfection.This test has been authorized by the FDA under an EmergencyUse Authorization (EUA) for use by authorized laboratories.Testing performed on the [employer] GeneXpert utilizingreal-time RT-PCR.All SARS CoV2 and positive influenza A/B results arereported to [facility]. 03/09/2022 5:39 PM EST 03/09/2022 5:43 PM EST [facility] Exter nal Provider LAB MICROBIOLOGY - GENERAL ORDERABLES Final Result Performing Organization Address [facility] Co de Phone Number [facility] [address] [place] [phone] * HIGH SENSITIVITY TROPONIN I (03/09/2022 5:39 PM EST) Pathologist [facility] TROPONIN I HIGH SENSITIVITY 5.6 <3.5 - 17.0 ng/L [facility] Comment:The Ibrahim high sens itivity Troponin-I results should beused in conjunction with other diagnostic information suchas ECG, clinical observations and information, and patientsymptoms to aid in the diagnosis of GA. 03/09/2022 5:39 PM EST 03/09/2022 5:43 PM EST us [facility] External Provider LAB BLO OD ORDERABLES Final Result [facility] [address] [place] [address] [phone] * (ABNORMAL) Comprehensive Metabolic Panel (03/09/2022 5:39 PM EST) Sodium 139 135 - 145 mmol/L [facility] Potassium 3.9 3.3 - 5.1 mmol/L [facility] Chloride 103 96 - 108 mmol/L [facility] Carbon Dioxide 27 22 - 29 mmol/L [facility] Anion Gap 13 12 - 20 [facility] Urea Nitrogen (BUN) 18(H) 9 - 16 mg/dL [facility] Creatinine, Serum 0.95 0.5 - 1.4 mg/dL [facility] Creatinine Clr Calc Pharmacy 53.0 [facility] Comment:Provided height and weight: 152.4 cm,65.2 kg.eGFR (calculated from the MDRD study equation) and eCrCl(calculated from the Cockcroft-Gault equation) are based ondifferent parameters and may not yield comparable results.If eCrCl result is absurd, please check patient'sheight/weight. Estimated Glomerular Filt Rate >60 [facility] Comment:NOTE: For -Am erican individuals, multiply the result by 1.210.Chronic Kidney Disease: Estimated GFR < 60 mL/min/1.04v2Tgmnxn Kidney Disease: Estimated GFR < 15 mL/min/1.73m2 Glucose 326(H) 60 - 115 mg/dL [facility] Calcium 9.1 8.4 - 10.2 mg/dL [facility] Bilirubin, Total 0.3 0.0 - 1.0 mg/dL [facility] Aspartate Amino Transferase 8 5 - 31 U/L [facility] Alanine Aminotransferase <6 0 - 31 U/L [facility] Total Protein 5.9(L) 6.5 - 8.0 g/dL [facility] Albumin Level 3.6 3.5 - 5.0 g/dL [facility] Alkaline Phosphatase 81 39 - 117 U/L [facility] 03/09/2022 5:39 PM EST 03/09/2022 5:43 PM EST us [facility] External Provider LAB BLO OD ORDERABLES Final Result [facility] [address] [place] [phone] * (ABNORMAL) CBC auto differential (03/09/2022 5:39 PM EST) White Blood Count 7.3 4.8 - 10.8 X10*3/uL [facility] Red Blood Count 4.03(L) 4.20 - 5.50 X10*6/uL [facility] Hemoglobin 11.7(L) 12.0 - 16.0 g/dl [facility] Hematocrit 35.1(L) 37.0 - 47.0 % [facility] Mean Corpuscular Volume 87.1 80.0 - 98.0 fL [facility] Mean Corpuscular Hemoglobin 29.0 27.0 - 33.0 pg [facility] Mean Corpuscular HGB Conc 33.3 31.0 - 35.0 g/dl [facility] Red Cell Distribution Width 13.4 11.0 - 16.0 % [facility] Platelet Count 296 160 - 400 X10*3/uL [facility] Mean Platelet Volume 9.3(L) 9.4 - 12.3 fL [facility] Neutrophils Percent Auto 63.9 45 - 73 % [facility] Imm Gran Pct Auto 0.1 0.0 - 0.4 % [facility] Lymphocytes Percent Auto 27.1 20 - 40 % [facility] Monocytes Percent Auto 5.9 2 - 11 % [facility] Eosinophils Percent Auto 2.6 0 - 4 % [facility] Basophils Percent Auto 0.4 0 - 2 % [facility] NRBC Pct Auto 0.0 0.0 - 0.2 /100WBC [facility] Neutrophils Absolute Auto 4.6 2.0 - 8.3 x10*3/uL [facility] Imm Gran Abs Auto 0.01 0.00 - 0.03 X10*3/uL [facility] Lymphocytes Absolute Auto 2.0 1.2 - 4.9 X10*3/uL [facility] Monocytes Absolute Auto 0.4 0.1 - 1.2 X10*3/uL [facility] Eosinophils Absolute Auto 0.2 0.0 - 0.4 X10*3/uL [facility] Basophils Absolute Auto 0.0 0.0 - 0.2 X10*3/uL [facility] NRBC Abs Auto 0.000 0.0 - 0.012 X10*3/uL [facility] 03/09/2022 5:39 PM EST 03/09/2022 5:43 PM EST us [facility] External Provider LAB BLO OD ORDERABLES Final Result Performing Organization Address City/State/[facility] Co de Phone Number [facility] [address] [place] [phone] * Prothrombin Time-INR (03/09/2022 5:39 PM EST) Prothrombin Time 10.9 10.0 - 13.1 SEC [facility] INTERNATIONAL NORM RATIO 1.0 0.9 - 1.1 [facility] Comment:INTERNATIONAL NORMAL IZED RATIO (INR) REFERENCE RANGES Reference RangeFor patients not on anticoagulant therapy: 0.9 - 1.1INR ranges for oral anticoagulanttherapy:For prevention and treatment of venous thrombosis and pulmonary embolism: 2.0 - 3.0For acute myocardial infarction with aspirin therapy: 2.0 - 3.0For acute myocardial infarction without aspirin therapy: 3.0 - 4.0For patients with mechanical prosthetic heart valves: 2.5 - 3.5 03/09/2022 5:39 PM EST 03/09/2022 5:43 PM EST [facility] External Provider LAB BLO OD ORDERABLES Final Result Performing Organization Address [facility] de Phone Number [facility] [address] [place] [phone] * GLUCOSE, WHOLE BLOOD (03/01/2022 12:41 AM EST) Glucose, Whole Blood 79 60 - 115 mg/dL [facility] Comment:METER #: [id number] 1 03/01/2022 12:4 1 AM EST 03/01/2022 12:46 AM EST [facility] External Provider LAB BLO OD ORDERABLES Final Result Performing Organization Address [facility] Phone Number [facility] [address] [place] [address] [phone] * (ABNORMAL) GLUCOSE, WHOLE BLOOD (02/28/2022 10:39 PM EST) Glucose, Whole Blood 273(H) 60 - 115 mg/dL [facility] Comment:METER #: [id number] 1 02/28/2022 10:3 9 PM EST 02/28/2022 10:45 PM EST [facility] External Provider LAB BLO OD ORDERABLES Final Result Performing Organization Address [facility] de Phone Number [facility] [address] [place] [address] [phone] * (ABNORMAL) Comprehensive Metabolic Panel (02/28/2022 9:42 PM EST) Sodium 138 135 - 145 mmol/L [facility] Potassium 4.3 3.3 - 5.1 mmol/L [facility] Comment:Slight Hemolysis Chloride 106 96 - 108 mmol/L [facility] Carbon Dioxide 24 22 - 29 mmol/L [facility] Anion Gap 12 12 - 20 [facility] Urea Nitrogen (BUN) 14 9 - 16 mg/dL [facility] Creatinine, Serum 0.87 0.5 - 1.4 mg/dL [facility] Creatinine Clr Calc Pharmacy 57.2 [facility] Comment:Provided height and weight: 152.4 cm,63.503 kg.eGFR (calculated from the MDRD study equation) and eCrCl(calculated from the Cockcroft-Gault equation) are based ondifferent parameters and may not yield comparable results.If eCrCl result is absurd, please check patient'sheight/weight. Estimated Glomerular Filt Rate >60 [facility] Comment:NOTE: For -Am erican individuals, multiply the result by 1.210.Chronic Kidney Disease: Estimated GFR < 60 mL/min/1.88g1Inlxbg Kidney Disease: Estimated GFR < 15 mL/min/1.73m2 Glucose 378(HH) 60 - 115 mg/dL [facility] Comment:Critical value for t est(s): GLUR Results called to and readback by: EULA Person calling: BIANKA Date: 02/28/22Time: 2220 Calcium 9.3 8.4 - 10.2 mg/dL [facility] Bilirubin, Total 0.3 0.0 - 1.0 mg/dL [facility] Aspartate Amino Transferase 12 5 - 31 U/L [facility] Comment:Slight Hemolysis Alanine Aminotransferase 7 0 - 31 U/L [facility] Total Protein 6.7 6.5 - 8.0 g/dL [facility] Albumin Level 3.9 3.5 - 5.0 g/dL [facility] Alkaline Phosphatase 83 39 - 117 U/L [facility] 02/28/2022 9:42 PM EST 02/28/2022 9:48 PM EST us [facility] External Provider LAB BLO OD ORDERABLES Final Result Performing Organization Address [facility] Co de Phone Number [facility] [address] [place] [address] [phone] * HIGH SENSITIVITY TROPONIN I (02/28/2022 9:42 PM EST) [facility] TROPONIN I HIGH SENSITIVITY 7.1 <3.5 - 17.0 ng/L [facility] Comment:The Ibrahim high sens itivity Troponin-I results should beused in conjunction with other diagnostic information suchas ECG, clinical observations and information, and patientsymptoms to aid in the diagnosis of GA. 02/28/2022 9:42 PM EST 02/28/2022 9:48 PM EST [facility] External Provider LAB BLO OD ORDERABLES Final Result Performing Organization Address [facility] Co de Phone Number [facility] [address] [place] [address] [phone] * (ABNORMAL) CBC (02/28/2022 9:42 PM EST) [facility] White Blood Count 7.0 4.8 - 10.8 X10*3/uL [facility] Red Blood Count 4.22 4.20 - 5.50 X10*6/uL [facility] Hemoglobin 12.1 12.0 - 16.0 g/dl [facility] Hematocrit 36.4(L) 37.0 - 47.0 % [facility] Mean Corpuscular Volume 86.3 80.0 - 98.0 fL [facility] Mean Corpuscular Hemoglobin 28.7 27.0 - 33.0 pg [facility] Mean Corpuscular HGB Conc 33.2 31.0 - 35.0 g/dl [facility] Red Cell Distribution Width 13.3 11.0 - 16.0 % [facility] Platelet Count 311 160 - 400 X10*3/uL [facility] Mean Platelet Volume 9.7 9.4 - 12.3 fL [facility] NRBC Pct Auto 0.0 0.0 - 0.2 /100WBC [facility] NRBC Abs Auto 0.000 0.0 - 0.012 X10*3/uL [facility] 02/28/2022 9:42 PM EST 02/28/2022 9:48 PM EST [facility] External Provider LAB BLO OD ORDERABLES Final Result Performing Organization Address [facility] Co de Phone Number [facility] [address] [place] [address] [phone] * (ABNORMAL) GLUCOSE, WHOLE BLOOD (02/28/2022 9:38 PM EST) Glucose, Whole Blood 379(HH) 60 - 115 mg/dL [facility] Comment:METER #: [id number] 1 02/28/2022 9:38 PM EST 02/28/2022 9:48 PM EST [facility] External Provider LAB BLO OD ORDERABLES Final Result Performing Organization Address [facility] de Phone Number [facility] [address] [place] [address] [phone] * (ABNORMAL) Urinalysis, Complete, with Reflex to Culture (02/22/2022 3:20 PM EST) Color Urine Yellow [facility] Appearance Urine Cloudy [facility] PH 6.5 5.0 - 9.0 [facility] Glucose Urine UA >=1000(A) Negative mg/dL [facility] Urine Blood Negative Negative [facility] Specific Craig - Urine 1.020 1.005 - 1.025 [facility] Urine Protein 100 (2+)(A) Neg-Trace mg/dL [facility] Urine Ketones Negative Negative mg/dL [facility] Nitrite Urine Negative Negative [facility] Leukocyte Esterase Urine Small (1+)(A) Negative [facility] RBC Urine 3-5(A) 0 - 2 /HPF [facility] Urine WBC 0-5 0 - 5 /HPF [facility] Urine Squamous Epithelial Cell 0-2 0 - 2 /HPF [facility] Urine Bacteria None Seen None Seen [facility] Hyaline Casts, Urine 3-5 0 - 2 /LPF [facility] 02/22/2022 3:20 PM EST 02/22/2022 3:27 PM EST Narrative [facility] - 02/22/2022 4:14 PM EST [id number], Clean Catch us [facility] External Provider LAB URI NE ORDERABLES Final Result [facility] [address] [place] [phone] * SARS-CoV-2 RNA, Influenza A/B, and RSV RNA, Ql NAAT (02/22/2022 3:14 PM EST) Influenza A PCR NEGATIVE Negative [facility] Influenza B PCR NEGATIVE Negative [facility] Resp Syncy Virus RNA Qual PCR NEGATIVE Negative [facility] SARS COV2 PCR NEGATIVE Negative [facility] SARS/Flu/RSV Note See Note [facility] Comment:All test results mus t be correlated with clinical findings.Negative results do not preclude SARS-CoV2, influenza Avirus, influenza B virus and/or RSV infectionand should not be used as the sole basis for treatment orother patient management decisions. Negative results must becombined with clinical observations, patient history, andepidemiological information.This test has not been evaluated for monitoring treatment ofinfection.This test has been authorized by the FDA under an EmergencyUse Authorization (EUA) for use by authorized laboratories.Testing performed on the [employer] GeneXpert utilizingreal-time RT-PCR.All SARS CoV2 and positive influenza A/B results arereported to [facility]. 02/22/2022 3:14 PM EST 02/22/2022 3:19 PM EST [facility] Exter nal Provider LAB MICROBIOLOGY - GENERAL ORDERABLES Final Result Performing Organization Address [facility] Phone Number [facility] [address] [place] [address] [phone] * HIGH SENSITIVITY TROPONIN I (02/22/2022 3:14 PM EST) [facility] TROPONIN I HIGH SENSITIVITY 8.8 <3.5 - 17.0 ng/L [facility] Comment:The Ibrahim high sens itivity Troponin-I results should beused in conjunction with other diagnostic information suchas ECG, clinical observations and information, and patientsymptoms to aid in the diagnosis of GA. 02/22/2022 3:14 PM EST 02/22/2022 3:19 PM EST [facility] External Provider LAB BLO OD ORDERABLES Final Result Performing Organization Address [facility] Number [facility] [address] [place] [address] [phone] * Magnesium (02/22/2022 3:14 PM EST) [facility] Magnesium 1.6 1.6 - 2.6 mg/dL [facility] 02/22/2022 3:14 PM EST 02/22/2022 3:19 PM EST [facility] External Provider LAB BLO OD ORDERABLES Final Result Performing Organization Address [facility] Phone Number [facility] [address] [place] [address] [phone] * (ABNORMAL) Basic Metabolic Panel (02/22/2022 3:14 PM EST) [facility] Sodium 136 135 - 145 mmol/L [facility] Potassium 4.4 3.3 - 5.1 mmol/L [facility] Chloride 103 96 - 108 mmol/L [facility] Carbon Dioxide 27 22 - 29 mmol/L [facility] Anion Gap 10(L) 12 - 20 [facility] Urea Nitrogen (BUN) 20(H) 9 - 16 mg/dL [facility] Creatinine, Serum 0.99 0.5 - 1.4 mg/dL [facility] Creatinine Clr Calc Pharmacy 50.6 [facility] Comment:Provided height and weight: 152.4 cm,64.5 kg.eGFR (calculated from the MDRD study equation) and eCrCl(calculated from the Cockcroft-Gault equation) are based ondifferent parameters and may not yield comparable results.If eCrCl result is absurd, please check patient'sheight/weight. Estimated Glomerular Filt Rate 57 [facility] Comment:NOTE: For -Am erican individuals, multiply the result by 1.210.Chronic Kidney Disease: Estimated GFR < 60 mL/min/1.84c3Zpkvss Kidney Disease: Estimated GFR < 15 mL/min/1.73m2 Glucose 343(H) 60 - 115 mg/dL [facility] Calcium 9.3 8.4 - 10.2 mg/dL [facility] 02/22/2022 3:14 PM EST 02/22/2022 3:19 PM EST us [facility] External Provider LAB BLO OD ORDERABLES Final Result [facility] [address] [place] [address] [phone] * (ABNORMAL) Hepatic Function Panel (02/22/2022 3:14 PM EST) Bilirubin, Total 0.4 0.0 - 1.0 mg/dL [facility] Bilirubin, Direct <0.2 0.0 - 0.5 mg/dL [facility] Aspartate Amino Transferase 10 5 - 31 U/L [facility] Alanine Aminotransferase 6 0 - 31 U/L [facility] Total Protein 6.1(L) 6.5 - 8.0 g/dL [facility] Albumin Level 3.7 3.5 - 5.0 g/dL [facility] Alkaline Phosphatase 82 39 - 117 U/L [facility] 02/22/2022 3:14 PM EST 02/22/2022 3:19 PM EST [facility] External Provider LAB BLO OD ORDERABLES Final Result Performing Organization Address City/State/[facility] Co de Phone Number [facility] [address] [place] [phone] * (ABNORMAL) CBC auto differential (02/22/2022 3:14 PM EST) White Blood Count 5.6 4.8 - 10.8 X10*3/uL [facility] Red Blood Count 3.99(L) 4.20 - 5.50 X10*6/uL [facility] Hemoglobin 11.8(L) 12.0 - 16.0 g/dl [facility] Hematocrit 35.1(L) 37.0 - 47.0 % [facility] Mean Corpuscular Volume 88.0 80.0 - 98.0 fL [facility] Mean Corpuscular Hemoglobin 29.6 27.0 - 33.0 pg [facility] Mean Corpuscular HGB Conc 33.6 31.0 - 35.0 g/dl [facility] Red Cell Distribution Width 13.2 11.0 - 16.0 % [facility] Platelet Count 265 160 - 400 X10*3/uL [facility] Mean Platelet Volume 10.0 9.4 - 12.3 fL [facility] Neutrophils Percent Auto 49.1 45 - 73 % [facility] Imm Gran Pct Auto 0.4 0.0 - 0.4 % [facility] Lymphocytes Percent Auto 40.1(H) 20 - 40 % [facility] Monocytes Percent Auto 6.1 2 - 11 % [facility] Eosinophils Percent Auto 3.4 0 - 4 % [facility] Basophils Percent Auto 0.9 0 - 2 % [facility] NRBC Pct Auto 0.0 0.0 - 0.2 /100WBC [facility] Neutrophils Absolute Auto 2.7 2.0 - 8.3 x10*3/uL [facility] Imm Gran Abs Auto 0.02 0.00 - 0.03 X10*3/uL [facility] Lymphocytes Absolute Auto 2.2 1.2 - 4.9 X10*3/uL [facility] Monocytes Absolute Auto 0.3 0.1 - 1.2 X10*3/uL [facility] Eosinophils Absolute Auto 0.2 0.0 - 0.4 X10*3/uL [facility] Basophils Absolute Auto 0.1 0.0 - 0.2 X10*3/uL [facility] NRBC Abs Auto 0.000 0.0 - 0.012 X10*3/uL [facility] 02/22/2022 3:14 PM EST 02/22/2022 3:19 PM EST [facility] External Provider LAB BLO OD ORDERABLES Final Result Performing Organization Address City/[facility]/ZIP Co de Phone Number [facility] [address] [place] [address] [phone] * Culture, Urine, Routine (02/22/2022 12:00 AM EST) 02/22/2022 02/22/2022 5:2 3 PM EST Comment:UACC Narrative [facility] - 02/24/2022 11:31 AM EST Urine Culture Report Result Urine Culture 10,000 to 50,000 cfu/ml Urine Culture Mixed bacterial benton characteristic of Urine Culture urogenital contamination. Specimen Source: Urine clean catch [facility] Exter nal Provider LAB MICROBIOLOGY - GENERAL ORDERABLES Final Result Performing Organization Address City/[facility]/ZIP Co de Phone Number [facility] [address] [place] [address] [phone] documented in this encounter Visit Diagnoses Not on filedocumented in this encounter Care Teams Teacher Lip Reading Relationship Specialty Start Date End Date JurcsakRadha [address] [place] [address] PCP - General Family Medicine 01/26/12 Abdias Murillo, KeithD [address] [place] [address] Pharmacist Internal Medicine 03/21/22 08/30/23 Nelia Sullivan PharmD [address] [place] [address] Pharmacist Internal Medicine 08/31/23 Laurel Monterroso Management AideCasting Machine Operator Automatic 10/27/22 [place] Aguilar 09/26/23 documented as of this encounter
--- OUTSIDE RECORDS SUMMARY | 2024-04-04 12:07 | XMS_ITS | Encounter Summary ---
Author Organization [employer] Address [address] [facility] 7t [place] [address] Care Team Providers Care Paper Stacker Name Role Phone Radha Jamison DO Primary Care Provider [phone] Nelia Sullivan PharmD Unavailable [phone] Reason for Visit * Reason Comments Med Refill Encounter Details Date Type Department Care Team ([facility] st Contact Info) Description 11/21/2023 Refill [facility] [address] [place], [place] [phone] Radha Jamison DO [address] [place] [address] Chronic bilateral low back pain, unspecified whether [...] Description 04/17/2024 9:30 AM EST Clinical Support [facility] [address] [place] [address] Acacia Chakraborty RN 04/24/2024 2:30 PM EDT Office Visit [facility] ADULT DENTAL [address] [place] [phone] Peter Peña DDS [address] [place] [address] 05/09/2024 10:30 AM EDT Medication Management [facility] [address] [place] [address] Nelia Sullivan, PharmD [address] [place] [address] 05/28/2024 9:45 AM EDT Office Visit [facility] [address] [place] [address] Radha Jamison DO [address] [place] [address] documented as of this encounter Goals Goal [...] documented as of this encounter Care Teams Paper Stacker Relationship Specialty Start Date End Date Radha Jamison DO [address] [place] [address] PCP - General Family Medicine 01/26/12 Nelia Sullivan PharmD [address] [place] [address] Pharmacist Internal Medicine 08/31/23 Laurel Monterroso Sales AttendantTest Director 10/27/22 [place] Aguilar 09/26/23 documented as of this encounter
--- OUTSIDE RECORDS SUMMARY | 2024-04-04 12:07 | XMS_ITS | Encounter Summary ---
Author Organization [employer] Address [address] [facility] 7t [place] [address] Care Team Providers Care Plumbing Assembler Installer Name Role Phone Radha Jamison DO Primary Care Provider [phone]- [phone] Abdias Murillo PharmD Unavailable Unavail able Nelia Sullivan PharmD Unavailable [phone] Reason for Visit * Reason Comments Med Refill Encounter Details Date Type Department Care Team (Late st Contact Info) Description 03/14/2023 Refill [facility] [address] [place], [place] [phone] Radha Jamison DO [address] [place] [address] Chronic bilateral low back pain, unspecified whether [...] Description 04/17/2024 9:30 AM EST Clinical Support [facility] [address] [place] [address] Acacia Chakraborty RN 04/24/2024 2:30 PM EDT Office Visit [facility] ADULT DENTAL [address] [place] [phone] Peter Peña DDS [address] [place] [address] 05/09/2024 10:30 AM EDT Medication Management [address] [address] Nelia Sullivan PharmD [address] [place] [address] 05/28/2024 9:45 AM EDT Office Visit [address] [address] Radha Jamison DO [address] [place] [address] documented as of this encounter Goals Goal [...] documented as of this encounter Care Teams Plumbing Assembler Installer Relationship Specialty Start Date End Date Radha Jamison DO [address] [place] [address] PCP - General Family Medicine 01/26/12 Abdias Murillo, Camron [address] [place] [address] Pharmacist Internal Medicine 03/21/22 08/30/23 Nelia Sullivan PharmD [address] [place] [address] Pharmacist Internal Medicine 08/31/23 Laurel Monterroso General Manager FoodLath Tier 10/27/22 [place] Aguilar 09/26/23 documented as of this encounter
--- OUTSIDE RECORDS SUMMARY | 2024-04-04 12:07 | XMS_ITS | Encounter Summary ---
Author Organization [employer] Address [address] [facility] 7t [place] [address] Care Team Providers Care Stock Buyer Name Role Phone Radha Jamison DO Primary Care Provider [phone]- [phone] Abdias Murillo PharmD Unavailable Unavail able Nelia Sullivan PharmD Unavailable [phone] Reason for Visit * Reason Onset Date Comments Appointment Request 03/09/2023 Encounter Details Date Type Department Care Team ([facility] st Contact Info) Description 03/09/2023 Telephone [facility] [address] [place], [place] [phone] Radha Jamison DO [address] [place] [address] Appointment Request Social History Tobacco Use Types Packs/Day Years [...] * Telephone Encounter - Josue Reynolds - 03/09/2023 2:02 PM EST Tc from pt requesting an appt, pt was on jan recall denied any concerns. Please contact pt at [phone] documented in this encounter Plan of Treatment Upcoming Encounters Date Type Department Care Team (Late st Contact Info) Description 04/17/2024 9:30 AM EST Clinical Support [facility] [address] [place] [phone] Acacia Chakraborty, JOANN 04/24/2024 2:30 PM EDT Office Visit [facility] ADULT DENTAL [address] [place] [address] Peter Peña DDS [address] [place] [address] 05/09/2024 10:30 AM EDT Medication Management [facility] [address] [place] [address] Nelia Sullivan PharmD [address] [place] [address] 05/28/2024 9:45 AM EDT Office Visit [facility] [address] [place] [address] Radha Jamison DO [address] [place] [address] documented as of this encounter Goals Goal [...] documented as of this encounter Care Teams Stock Buyer Relationship Specialty Start Date End Date Radha Jamison DO [address] [place] [address] PCP - General Family Medicine 01/26/12 Abdias Murillo, PharmD [address] [place] [address] Pharmacist Internal Medicine 03/21/22 08/30/23 Nelia Sullivan PharmD [address] [place] [address] Pharmacist Internal Medicine 08/31/23 Laurel Monterroso Instrument And Control TechnicianDairy Scientist 10/27/22 [place] Aguilar 09/26/23 documented as of this encounter
--- OUTSIDE RECORDS SUMMARY | 2024-04-04 12:07 | XMS_ITS | Encounter Summary ---
Author Organization [facility] Address 75 [facility] 7t [place] [address] Care Team Providers Care Transportation Worker Name Role Phone Radha Jamison DO Primary Care Provider [phone]- [phone] Abdias Murillo PharmD Unavailable Unavail able Nelia Sullivan PharmD Unavailable Reason for Visit * Reason Comments Med Refill Encounter Details Date Type Department Care Team (Late st Contact Info) Description 06/10/2022 Refill [facility] [address] [place] [address] Radha Jamison DO [address] [place] [address] Chronic bilateral low back pain, unspecified whether [...] suspected to have Coronavirus/COVID-19? No / Unsure 06/10/2022 10:20 AM EDT documented as of this encounter Plan of Treatment Upcoming Encounters Date Type Department Care Team (Late st Contact Info) Description 04/17/2024 9:30 AM EST Clinical Support [facility] [address] [place] [address] Acacia Chakraborty RN 04/24/2024 2:30 PM EDT Office Visit [facility] ADULT DENTAL [address] [place] [address] Peter Peña DDS [address] [place] [address] 05/09/2024 10:30 AM EDT Medication Management [facility] [address] [place] [address] Nelia Sullivan PharmD [address] [place] [address] 05/28/2024 9:45 AM EDT Office Visit [facility] [address] [place] [address] Radha Jamison DO [address] [place] [address] documented as of this encounter Goals Goal [...] documented as of this encounter Care Teams Transportation Worker Relationship Specialty Start Date End Date Radha Jamison DO [address] [place] [address] PCP - General Family Medicine 01/26/12 Abdias Murillo PharmD [address] [place] [address] Pharmacist Internal Medicine 03/21/22 08/30/23 Nelia Sullivan PharmD [address] [place] [address] Pharmacist Internal Medicine 08/31/23 Laurel Monterroso Firer Diesel LocomotiveClinical Transplant Coordinator 10/27/22 [place] Aguilar 09/26/23 documented as of this encounter
--- OUTSIDE RECORDS SUMMARY | 2024-04-04 12:07 | XMS_ITS | Encounter Summary ---
Author Organization [employer] Address 75 [facility] 7t [place] [address] Care Team Providers Care Electronic Warfare Linguist Name Role Phone Radha Jamison DO Primary Care Provider [phone]- [phone] Abdias Murillo PharmD Unavailable Unavail able Nelia Sullivan PharmD Unavailable [phone] Reason for Visit * Reason Comments Med Refill Encounter Details Date Type Department Care Team (Late st Contact Info) Description 12/20/2022 Refill [facility] [address] [place] [address] Radha Jamison DO [address] [place] [address] Chronic bilateral low back pain, unspecified whether [...] Description 04/17/2024 9:30 AM EST Clinical Support [facility] [address] [place] [address] Acacia Chakraborty RN 04/24/2024 2:30 PM EDT Office Visit [facility] ADULT D[facility] [address] [place] [address] Peter Peña DDS [address] [place] [address] 05/09/2024 10:30 AM EDT Medication Management [address] [address] Nelia Sullivan PharmD [address] [place] [address] 05/28/2024 9:45 AM EDT Office Visit [address] [address] Radha Jamison DO [address] [place] [address] documented as of this encounter Goals Goal [...] documented as of this encounter Care Teams Electronic Warfare Linguist Relationship Specialty Start Date End Date Radha Jamison DO [address] [place] [address] PCP - General Family Medicine 01/26/12 Abdias Murillo, Camron [address] [place] [address] Pharmacist Internal Medicine 03/21/22 08/30/23 Nelia Sullivan PharmD [address] [place] [address] Pharmacist Internal Medicine 08/31/23 Laurel Monterroso Director Of Cloud ServicesCork Tipper 10/27/22 Sa[place] Aguilar 09/26/23 documented as of this encounter
[2024-04-04 13:32] LABS: Anion Gap 10 (12-20); Blood Urea Nitrogen 22 mg/dL (9-16); Carbon Dioxide 27 mmol/L (22-29); Chloride 107 mmol/L (96-108); Estimated Glomerular Filt Rate > 60; Glucose Random 213 mg/dL (60-115); Potassium 4.4 mmol/L (3.3-5.1); Sodium 140 mmol/L (135-145)
[2024-04-04 14:03] LABS: Vitamin B12 387 pg/mL (200-900)
== END 2024-04-04 10:52 | disposition home or self-care (01) ==
LOC: HO.HHCL 10:51
PROVIDERS: Internal Medicine Hypertension Specialist; Visit Provider Family Medicine
DX: Z00.00 Encounter for general adult medical examination without abnormal findings (principal); I10 Essential (primary) hypertension; Z79.4 Long term (current) use of insulin; E11.3299 Type 2 diabetes mellitus with mild nonproliferative diabetic retinopathy without macular edema, unspecified eye
CPT/HCPCS: 36415; 80048; 82607

== ENCOUNTER 2024-04-11 13:22 | Outpatient (AMB) | payer MEDICAID, SELFPAY ==
--- NOTE | 2024-04-11 13:38 | HO.NEPHOV_ITS ---
Vital Signs 04/11/24 13:39 Height 5 ft 5 in Weight 145 lb BMI 24.1 BP 144/64 H Blood Pressure Location Rt brachial Position Sitting Pulse 78 Pulse Source Pulse Oximeter Pulse Oximetry (%) 96 Oxygen Delivery Method Room Air Intake Visit Reasons: Anemia/ Conf Personal Investment Adviser Required: Yes Personal Investment Adviser Name: Ernie Accompanied by: Self / Same As Patient Allergies latex [LATEX] Allergy (Severe, Verified 04/11/24 13:40) RASH naproxen [From NAPROSYN] Adverse Reaction (Intermediate, Verified 04/11/24 13:40) TACHYCARDIA HPI Comments Details: . Rocío is a 62-year-old woman with a significant vascular disease and resistant hypertension. She is on multiple antihypertensive medications in the blood pressure is still suboptimal. She did not bring her list of medications. However from the available data it appears that she is on amlodipine 10 mg carvedilol 25 mg twice a day clonidine patch, hydralazine 50 mg t.i.d. lisinopril 40 mg and hydrochlorothiazide 25 mg. She tells me that she has been compliant with her medications. There is a question of renal artery stenosis. However she had a Doppler ultrasound a year ago which was inconclusive however she had a CT angiogram in 2021 which did not reveal any significant renal artery stenosis. She has normal renal function with a creatinine of less than 1. She has non nephrotic range proteinuria with a urine protein creatinine ratio revealing 1000 mg of protein excretion. She has carotid artery disease with 60-70% mid RCA stenosis History of peripheral vascular disease status post fem-pop bypass surgery and left femoral endarterectomy and left popliteal thrombectomy. She has a history of smoking for many years. She continues to smoke half a pack per day. She has dyslipidemia with a total cholesterol of 240 and LDL of 165. She is on atorvastatin 80 mg daily. 07/27/2023. She is accompanied by her daughter. She is tolerating Aldactazide. Yesterday her blood pressure was around 200 mm Hg systolic. However she did not take her medications yesterday. Today she is feeling fine office readings are excellent. Renal angiogram is still pending 08/21/2023. Accompanied by her daughter. She tells me that her blood pressure increases every time she takes hydralazine therefore she stopped taking hydralazine. At present she is on lisinopril 40 mg and Aldactazide 25/25 1 a day. Upon talking to her I am not sure if she is really taking her medications. She was scheduled for renal angiogram next week. No specific complaints today 11/10/2023. She underwent renal angiogram which did not reveal any stenosis of large arteries. He was in the ER twice with elevated blood pressure. She was scheduled for coronary angiogram next month in [facility]. She did not bring her medications today but it was cross checked with pharmacy 11/15/2023. Seen in [facility] 2 days ago. Here for follow up with family. She was scheduled for coronary angiogram in the next few weeks All medications were reviewed 01/30/24 Bp well controlled. Cardiac work up in progress 04/11/24 c/o LEg edema Cardiac follow up on April 24 [facility] Medical History NSTEMI (non-ST elevated myocardial infarction) Mild aortic valve stenosis LORE (obstructive sleep apnea) Chronic low back pain Lumbar spinal stenosis HTN (hypertension) Vitamin D deficiency HLD (hyperlipidemia) T2DM (type 2 diabetes mellitus) H. pylori infection CAD (coronary artery disease) Cyst (solitary) of breast Kidney calculi Arthritis Asthma HTN (hypertension) Diabetes Surgical History History of right-sided carotid endarterectomy (~11/2022) S/P aortogram History of esophagogastroduodenoscopy (EGD) Hx of colonoscopy History of breast surgery History of cardiac cath Family History Mother Diabetes Liver cancer Social History Household Members: Children Household Members Other:: friend and adult son Housing: Apartment Are you a primary care support representative to a significant other at home: No Do you presently have visiting nurse or other home services: Yes (RN 2x/week) Alcohol intake: never Comment: refuses bed alarm Patient Tobacco Use Status: Current everyday Tobacco user Tobacco use type: Cigarette Cigarette Packs Per Day: 1 Cigarettes Per Day: 4 Years Smoked: 30 e-Cigarette/Vaping Use: Currently Using Second Hand Smoke Exposure: Yes Advance Directives Date on File: 09/26/23 service: No Current occupational status: unemployed and disabled Physical Exam Vital Signs: Last Vital Signs Pulse 78 04/11/24 13:39 BP 144/64 H 04/11/24 13:39 Pulse Ox 96 04/11/24 13:39 Oxygen Delivery Method Room Air 04/11/24 13:39 BMI result Body Mass Index 24.1 Const General: comfortable; No acute distress Orientation/consciousness: patient oriented x3 Eyes General: appearance normal, both eyes and all related structures Visual Chase: normal visual chase by confrontation Neck Neck: Yes supple and Yes no JVD Resp Effort & Inspection: normal respiratory effort and respiratory effort not decreased Auscultation: rhonchi Cardio Palpation: no palpable S3 and no palpable S4 Heart sounds: no rubs GI Inspection: Yes normal to inspection Palpation (GI): Soft to palpation Percussion: Yes normal to percussion Auscultation: normal bowel sounds General: Yes no CVA tenderness Back/Spine/Pelvis Back: no CVA tenderness Skin General skin exam: no petechiae and no purpura Neuro General: patient oriented x3 and no focal motor deficits Extrem General: No clubbing and Yes edema (Trace) Results Reviewed Nephrology Results: Hgb 10.5 g/dl (12.0-16.0) L 01/08/24 WBC 7.4 X10*3/uL (4.8-10.8) 01/08/24 Plt Count 296 X10*3/uL (160-400) 01/08/24 Sodium 140 mmol/L (135-145) 04/04/24 Potassium 4.4 mmol/L (3.3-5.1) 04/04/24 Chloride 107 mmol/L (96-108) 04/04/24 Carbon Dioxide 27 mmol/L (22-29) 04/04/24 BUN 22 mg/dL (9-16) H 04/04/24 Creatinine 0.88 mg/dL (0.5-1.4) 04/04/24 Calcium 9.0 mg/dL (8.4-10.2) 04/04/24 Assessment & Plan Assessment & Plan (1) HTN (hypertension): Code(s): I10 - Essential (primary) hypertension Category: Medical (2) PVD (peripheral vascular disease): Code(s): I73.9 - Peripheral vascular disease, unspecified Category: Medical (3) Proteinuria: Code(s): R80.9 - Proteinuria, unspecified Category: Medical (4) Anemia: Code(s): D64.9 - Anemia, unspecified Category: Medical (5) T2DM (type 2 diabetes mellitus): Code(s): E11.9 - Type 2 diabetes mellitus without complications Category: Medical Qualifiers: Diabetes mellitus roasterman insulin use: without roasterman use Diabetes mellitus complication status: with ophthalmic complications Diabetes mellitus complication detail: with diabetic retinopathy Diabetic retinopathy severity: with mild nonproliferative retinopathy Diabetes mellitus macular edema: with macular edema Laterality: bilateral Qualified Code(s): E11.3213 - Type 2 diabetes mellitus with mild nonproliferative diabetic retinopathy with macular edema, bilateral Plan Syl Alford has a resistant hypertension in a setting of significant vascular disease. She probably has underlying renal artery stenosis. Back in 2021 renal angiogram did not reveal any stenosis. However the ultrasonogram was inconclusive. Based on the history and clinical findings we still need to rule out renal artery stenosis. renal angiogram. NO stenosis of large vessels ( August 2023 ) Today the blood pressure is acceptable no changes were made. Follow renal function and potassium 24 hour ambulatory blood pressure monitoring was incomplete and results are inconclusive I discussed smoking cessation again. Has cut down to 1 aday! At present renal function is stable. She has non nephrotic range proteinuria most likely due to hypertensive diabetic kidney disease. She is at risk for ongoing renal injury from suboptimally controlled blood pressure. Continue to maximize CHERRI inhibition for renal protection. She will benefit from SGLT2 inhibitors. Continue with Jardiance Mild edema due to CCB Discussed importance of staying on Nifedipine Stay on low-salt diet . Orders: Orders Basic Metabolic Panel 4 Months I10 - Essential (primary) hypertension Coding Level of Care Code Est Pt Level 4 (75595) Diagnoses Hypertension, unspecified type I10 PVD (peripheral vascular disease) I73.9 Proteinuria R80.9 Anemia D64.9 Type 2 diabetes mellitus with both eyes affected by mild nonproliferative retinopathy and macular edema, without long-term current use of insulin E11.3213 Diabetes mellitus half-way insulin use: without half-way use Diabetes mellitus complication status: with ophthalmic complications Diabetes mellitus complication detail: with diabetic retinopathy Diabetic retinopathy severity: with mild nonproliferative retinopathy Diabetes mellitus macular edema: with macular edema Laterality: bilateral
[2024-04-11 13:39] VITALS: BP 144/64; PULSE 78; O2SAT 96; BMI 24.1
--- OUTSIDE RECORDS SUMMARY | 2024-04-11 15:59 | XMS_ITS | Clinical Summary ---
Author Organization Unknown Care Team Providers Care Nutter Up Name Role Phone ADILIA FELIPE, VIOLETA Unavailable Unavailable SURJIT DAVID, ERIC Unavailable Unavailable Payers Payer Name Policy Type Policy Number Effective Date Expira tion Date MEDICAID [facility] [id number] Problems Condition Name Condition Details Condition Category Status Onset Date Resolution Date Last Treatment Date Treating Clinician Comments ESSENTIAL (PRIMARY) HYPERTENSION Active 09-21 00:00: 00 ATHSCL HEART DISEASE OF [place] CORONARY ARTERY W/O ANG PCTRS Active 09-21 [...] CIGARETTES, UNCOMPLICATE D Active 09-21 00:00: 00 ASSISTED (CURRENT) USE OF INSULIN Active 09-21 00:00: 00 ASSISTED (CURRENT) USE OF ANTITHROMBOT ICS/ANTIPLAT ELETS Active [...] release 24 hr 8-05 00:00: 00 Yes [id number] 60 mg AT BEDTIME 60 mg AT BEDTIME (route: oral) Med Classific ation: Cardiovas cular Therapy Agents oxycodone 5 mg tablet 09-04 00:00: 00 11-19 23:59 :00 No [id number] Unavailable 5 mg FIVE TIMES DAILY NEEDED 5 mg FIVE TIMES DAILY NEEDED (route: oral) Med Classific ation: Analgesic , Anti-infl ammatory or Antipyret ic gabapentin 600 mg tablet 09-03 00:00: 00 09-25 23:59 :00 No [id number] 600 mg 2 TIMES DAILY 600 mg 2 TIMES DAILY (route: oral) Med Classific ation: Central Nervous System Agents nicotine 21 mg/24 hr daily transdermal patch 08-30 00:00: 00 Yes [id number] Unavailable 21 mg DAILY 21 mg DAILY (route: transderma l) Med Classific ation: Chemical Dependenc y, Agents to Treat Alcohol Prep Pads 08-29 00:00: 00 Yes [id number] 1 pads, medicat ed DIRECTED THREE TIMES DAILY AND NEEDED 1 pads, medicated DIRECTED THREE TIMES DAILY AND NEEDED (route: topical) Med Classific ation: Antisepti cs and Disinfect ants amitriptyli ne 50 mg tablet 08-29 00:00: 00 Yes [id number] Unavailable 50 mg AT BEDTIME 50 mg AT BEDTIME (route: oral) Med Classific ation: Central Nervous System Agents Asmanex HFA 100 mcg/actuati on aerosol inhaler 08-29 00:00: 00 Yes [id number] 2 puff TWICE DAILY 2 puff TWICE DAILY (route: inhalation ) Med Classific ation: Respirato ry Therapy Agents atorvastati n 80 mg tablet 08-29 00:00: 00 Yes [id number] Unavailable 80 mg BEDTIME 80 mg BEDTIME (route: oral) Med Classific ation: Cardiovas cular Therapy Agents carvedilol 25 mg tablet 08-29 00:00: 00 Yes [id number] Unavailable 25 mg TWICE DAILY 25 mg TWICE DAILY (route: oral) Med Classific ation: Cardiovas cular Therapy Agents clopidogrel 75 mg tablet 08-29 00:00: 00 Yes [id number] 75 mg EVERY AM 75 mg EVERY AM (route: oral) Med Classific ation: Hematolog ical Agents docusate sodium 100 mg capsule 08-29 00:00: 00 09-25 23:59 :00 No [id number] Unavailable 100 mg TWICE DAILY 100 mg TWICE DAILY (route: oral) Med Classific ation: Gastroint estinal Therapy Agents escitalopra m 20 mg tablet 08-29 00:00: 00 Yes [id number] Unavailable 20 mg EVERY PM 20 mg EVERY PM (route: oral) Med Classific ation: Central Nervous System Agents FeroSul 325 mg (65 mg iron) tablet 08-29 00:00: 00 09-25 23:59 :00 No [id number] Unavailable 325 mg TWICE DAILY IN THE MORNING AND AT BEDTIME 325 mg TWICE DAILY IN THE MORNING AND AT BEDTIME (route: oral) Med Classific ation: Electroly te Balance-N utritiona l Products gabapentin 800 mg tablet 08-29 00:00: 00 Yes [id number] 800 mg 2 TIMES DAILY 800 mg 2 TIMES DAILY (route: oral) Med Classific ation: Central Nervous System Agents hydralazine 25 mg tablet 08-29 00:00: 00 Yes [id number] Unavailable 25 mg 3 TIMES DAILY 25 mg 3 TIMES DAILY (route: oral) Med Classific ation: Cardiovas cular Therapy Agents hydralazine 50 mg tablet 08-29 00:00: 00 09-25 23:59 :00 No [id number] Unavailable 50 mg THREE TIMES DAILY IN THE MORNING AT 50 mg THREE TIMES DAILY IN THE MORNING AT (route: oral) Med Classific ation: Cardiovas cular Therapy Agents mirtazapine 45 mg tablet 08-29 00:00: 00 Yes [id number] Unavailable 45 mg AT BEDTIME 45 mg AT BEDTIME (route: oral) Med Classific ation: Central Nervous System Agents omeprazole 20 mg capsule,del ayed release 08-29 00:00: 00 Yes [id number] 20 mg TWICE DAILY 20 mg TWICE DAILY (route: oral) Med Classific ation: Gastroint estinal Therapy Agents lisinopril 40 mg tablet 09-25 00:00: 00 Yes [id number] 40 mg DAILY 40 mg DAILY (route: oral) Med Classific ation: Cardiovas cular Therapy Agents metformin 1,000 mg tablet 09-25 00:00: 00 Yes [id number] 1000 mg 2 TIMES DAILY 1000 mg 2 TIMES DAILY (route: oral) Med Classific ation: Endocrine multivitami n tablet 09-25 00:00: 00 Yes [id number] 1 tablet DAILY 1 tablet DAILY (route: oral) Med Classific ation: Electroly te Balance-N utritiona l Products nifedipine ER 60 mg tablet,exte nded release 09-25 00:00: 00 Yes [id number] 60 mg EVERY PM 60 mg EVERY PM (route: oral) Med Classific ation: Cardiovas cular Therapy Agents pioglitazon e 15 mg tablet 09-25 00:00: 00 Yes [id number] 15 mg DAILY 15 mg DAILY (route: oral) Med Classific ation: Endocrine Tresiba FlexTouch U-100 insulin 100 unit/mL (3 mL) subcutane s pen 09-25 00:00: 00 Yes [id number] 10 In unit DAILY 10 In unit DAILY (route: subcutaneo ) Med Classific ation: Endocrine Vital Signs Vital Name Observation Time Observation Value Commen ts Temperature 2024-04-10 12:32:00.000 97.5 [degF] Temperature 2024-04-09 21:35:00.000 98.1 [degF] Temperature 2024-04-08 13:23:00.000 97.5 [degF] Temperature 2024-04-07 12:06:00.000 97.2 [degF] Temperature 2024-04-06 12:16:00.000 97.5 [degF] Temperature 2024-04-05 12:11:00.000 97.4 [degF] Temperature 2024-04-04 11:53:00.000 97.7 [degF] Temperature 2024-04-03 11:43:00.000 98.1 [degF] Temperature 2024-04-02 14:07:00.000 98 [degF] Temperature 2024-04-01 12:28:00.000 97.5 [degF] Temperature 2024-03-31 22:22:00.000 97.5 [degF] Temperature 2024-03-30 11:37:00.000 97.5 [degF] Temperature 2024-03-29 16:41:00.000 98 [degF] Temperature 2024-03-28 13:19:00.000 98 [degF] Temperature 2024-03-27 23:43:00.000 97.8 [degF] Temperature 2024-03-26 12:59:00.000 98.1 [degF] Temperature 2024-03-25 11:51:00.000 98.1 [degF] Temperature 2024-03-24 11:28:00.000 97.5 [degF] Systolic Blood Pressure 2024-04-10 12:32:00.000 142 mm [Hg] Systolic Blood Pressure 2024-04-09 21:36:00.000 134 mm [Hg] Systolic Blood Pressure 2024-04-07 12:06:00.000 122 mm [Hg] Systolic Blood Pressure 2024-04-05 12:11:00.000 138 mm [Hg] Systolic Blood Pressure 2024-03-31 22:23:00.000 148 mm [Hg] Systolic Blood Pressure 2024-03-30 11:38:00.000 144 mm [Hg] Systolic Blood Pressure 2024-03-27 23:44:00.000 144 mm [Hg] Diastolic Blood Pressure 2024-04-10 12:32:00.000 88 mm [Hg] Diastolic Blood Pressure 2024-04-09 21:36:00.000 70 mm [Hg] Diastolic Blood Pressure 2024-04-07 12:06:00.000 68 mm [Hg] Diastolic Blood Pressure 2024-04-05 12:11:00.000 76 mm [Hg] Diastolic Blood Pressure 2024-03-31 22:23:00.000 [...] AWARENESS FOR SAFETY AND WILL NOTIFY CLINICAL PATIENT ACCOUNTS MANAGER AND PHYSICIAN/PROVIDER WITH ANY CHANGE IN CONDITION. [code = SKILLED NURSE WILL MAINTAIN SITUATIONAL AWARENESS FOR SAFETY AND WILL NOTIFY CLINICAL PATIENT ACCOUNTS MANAGER AND PHYSICIAN/PROVIDER WITH ANY CHANGE IN CONDITION.] [...] End Date/Time Encounter Type Admission Type Attending [facility] Care Department Encounter ID Discharge Date Discharge Status Discharge Condition Discharge Reason Percent Goals Met 2023-09-26 00:00:00 2024-05-22 00:00:00 Outpatient RECERTIFIC ERIC CHAMPAGNE [facility] [id number] 8.70
--- OUTSIDE RECORDS SUMMARY | 2024-04-11 15:59 | XMS_ITS | Clinical Summary ---
Author Organization Unknown Care Team Providers Care Bonded Structures Repairer Name Role Phone ADILIA FELIPE, VIOLETA Unavailable Unavailable SURJIT DAVID, ERIC Unavailable Unavailable Payers Payer Name Policy Type Policy Number Effective Date Expira tion Date MEDICAID [facility] [id number] Problems Condition Name Condition Details Condition Category Status Onset Date Resolution Date Last Treatment Date Treating Clinician Comments ESSENTIAL (PRIMARY) HYPERTENSION Active 09-21 00:00: 00 ATHSCL HEART DISEASE OF [place] CORONARY ARTERY W/O ANG PCTRS Active 09-21 [...] CIGARETTES, UNCOMPLICATE D Active 09-21 00:00: 00 MCC (CURRENT) USE OF INSULIN Active 09-21 00:00: 00 MCC (CURRENT) USE OF ANTITHROMBOT ICS/ANTIPLAT ELETS Active [...] release 24 hr 8-05 00:00: 00 Yes [id number] 60 mg AT BEDTIME 60 mg AT BEDTIME (route: oral) Med Classific ation: Cardiovas cular Therapy Agents oxycodone 5 mg tablet 09-04 00:00: 00 11-19 23:59 :00 No [id number] Unavailable 5 mg FIVE TIMES DAILY NEEDED 5 mg FIVE TIMES DAILY NEEDED (route: oral) Med Classific ation: Analgesic , Anti-infl ammatory or Antipyret ic gabapentin 600 mg tablet 09-03 00:00: 00 09-25 23:59 :00 No [id number] 600 mg 2 TIMES DAILY 600 mg 2 TIMES DAILY (route: oral) Med Classific ation: Central Nervous System Agents nicotine 21 mg/24 hr daily transdermal patch 08-30 00:00: 00 Yes [id number] Unavailable 21 mg DAILY 21 mg DAILY (route: transderma l) Med Classific ation: Chemical Dependenc y, Agents to Treat Alcohol Prep Pads 08-29 00:00: 00 Yes [id number] 1 pads, medicat ed DIRECTED THREE TIMES DAILY AND NEEDED 1 pads, medicated DIRECTED THREE TIMES DAILY AND NEEDED (route: topical) Med Classific ation: Antisepti cs and Disinfect ants amitriptyli ne 50 mg tablet 08-29 00:00: 00 Yes [id number] Unavailable 50 mg AT BEDTIME 50 mg AT BEDTIME (route: oral) Med Classific ation: Central Nervous System Agents Asmanex HFA 100 mcg/actuati on aerosol inhaler 08-29 00:00: 00 Yes [id number] 2 puff TWICE DAILY 2 puff TWICE DAILY (route: inhalation ) Med Classific ation: Respirato ry Therapy Agents atorvastati n 80 mg tablet 08-29 00:00: 00 Yes [id number] Unavailable 80 mg BEDTIME 80 mg BEDTIME (route: oral) Med Classific ation: Cardiovas cular Therapy Agents carvedilol 25 mg tablet 08-29 00:00: 00 Yes [id number] Unavailable 25 mg TWICE DAILY 25 mg TWICE DAILY (route: oral) Med Classific ation: Cardiovas cular Therapy Agents clopidogrel 75 mg tablet 08-29 00:00: 00 Yes [id number] 75 mg EVERY AM 75 mg EVERY AM (route: oral) Med Classific ation: Hematolog ical Agents docusate sodium 100 mg capsule 08-29 00:00: 00 09-25 23:59 :00 No [id number] Unavailable 100 mg TWICE DAILY 100 mg TWICE DAILY (route: oral) Med Classific ation: Gastroint estinal Therapy Agents escitalopra m 20 mg tablet 08-29 00:00: 00 Yes [id number] Unavailable 20 mg EVERY PM 20 mg EVERY PM (route: oral) Med Classific ation: Central Nervous System Agents FeroSul 325 mg (65 mg iron) tablet 08-29 00:00: 00 09-25 23:59 :00 No [id number] Unavailable 325 mg TWICE DAILY IN THE MORNING AND AT BEDTIME 325 mg TWICE DAILY IN THE MORNING AND AT BEDTIME (route: oral) Med Classific ation: Electroly te Balance-N utritiona l Products gabapentin 800 mg tablet 08-29 00:00: 00 Yes [id number] 800 mg 2 TIMES DAILY 800 mg 2 TIMES DAILY (route: oral) Med Classific ation: Central Nervous System Agents hydralazine 25 mg tablet 08-29 00:00: 00 Yes [id number] Unavailable 25 mg 3 TIMES DAILY 25 mg 3 TIMES DAILY (route: oral) Med Classific ation: Cardiovas cular Therapy Agents hydralazine 50 mg tablet 08-29 00:00: 00 09-25 23:59 :00 No [id number] Unavailable 50 mg THREE TIMES DAILY IN THE MORNING AT 50 mg THREE TIMES DAILY IN THE MORNING AT (route: oral) Med Classific ation: Cardiovas cular Therapy Agents mirtazapine 45 mg tablet 08-29 00:00: 00 Yes [id number] Unavailable 45 mg AT BEDTIME 45 mg AT BEDTIME (route: oral) Med Classific ation: Central Nervous System Agents omeprazole 20 mg capsule,del ayed release 08-29 00:00: 00 Yes [id number] 20 mg TWICE DAILY 20 mg TWICE DAILY (route: oral) Med Classific ation: Gastroint estinal Therapy Agents lisinopril 40 mg tablet 09-25 00:00: 00 Yes [id number] 40 mg DAILY 40 mg DAILY (route: oral) Med Classific ation: Cardiovas cular Therapy Agents metformin 1,000 mg tablet 09-25 00:00: 00 Yes [id number] 1000 mg 2 TIMES DAILY 1000 mg 2 TIMES DAILY (route: oral) Med Classific ation: Endocrine multivitami n tablet 09-25 00:00: 00 Yes [id number] 1 tablet DAILY 1 tablet DAILY (route: oral) Med Classific ation: Electroly te Balance-N utritiona l Products nifedipine ER 60 mg tablet,exte nded release 09-25 00:00: 00 Yes [id number] 60 mg EVERY PM 60 mg EVERY PM (route: oral) Med Classific ation: Cardiovas cular Therapy Agents pioglitazon e 15 mg tablet 09-25 00:00: 00 Yes [id number] 15 mg DAILY 15 mg DAILY (route: oral) Med Classific ation: Endocrine Tresiba FlexTouch U-100 insulin 100 unit/mL (3 mL) subcutane s pen 09-25 00:00: 00 Yes [id number] 10 In unit DAILY 10 In unit [...] AWARENESS FOR SAFETY AND WILL NOTIFY CLINICAL PROSTHETIC AIDES TEACHER AND PHYSICIAN/PROVIDER WITH ANY CHANGE IN CONDITION. [code = SKILLED NURSE WILL MAINTAIN SITUATIONAL AWARENESS FOR SAFETY AND WILL NOTIFY CLINICAL PROSTHETIC AIDES TEACHER AND PHYSICIAN/PROVIDER WITH ANY CHANGE IN CONDITION.] [...] MEDICATIONS DAILY AND PRE-POUR MEDICATIONS TILL NEXT USP VISIT PER MEDICATION LIST. [code = SKILLED NURSE TO ADMINISTER MEDICATIONS DAILY AND PRE-POUR MEDICATIONS TILL NEXT USP VISIT PER MEDICATION LIST.] Future Scheduled Test [...] CARE WILL BE ESTABLISHED THAT MEETS PATIENT'S USP NEEDS AND INCLUDES PATIENT GOAL FOR HOME [...] End Date/Time Encounter Type Admission Type Attending [facility] Care Department Encounter ID Discharge Date Discharge Status Discharge Condition Discharge Reason Percent Goals Met 2023-09-26 00:00:00 2024-05-22 00:00:00 Outpatient RECERTIFIC ERIC CHAMPAGNE [facility] [id number] 8.70
== END 2024-04-11 14:06 | disposition home or self-care (01) ==
PROVIDERS: PCP Family Medicine; Visit Provider Internal Medicine Hypertension Specialist
DX: I10 Essential (primary) hypertension (principal); I73.9 Peripheral vascular disease, unspecified; R80.9 Proteinuria, unspecified; D64.9 Anemia, unspecified; E11.3213 Type 2 diabetes mellitus with mild nonproliferative diabetic retinopathy with macular edema, bilateral
CPT/HCPCS: 99214

== ENCOUNTER → 2024-04-11 13:22 | Outpatient (BNVA) | payer MEDICAID, SELFPAY | PROVIDERS: PCP Family Medicine; Visit Provider Internal Medicine Hypertension Specialist | DX: I10 Essential (primary) hypertension (principal); I73.9 Peripheral vascular disease, unspecified; R80.9 Proteinuria, unspecified; D64.9 Anemia, unspecified; E11.3213 Type 2 diabetes mellitus with mild nonproliferative diabetic retinopathy with macular edema, bilateral | CPT/HCPCS: 99212 ==

== ENCOUNTER 2024-04-29 09:33 | Outpatient (AMB) | payer MEDICAID, SELFPAY ==
[2024-04-29 10:54] VITALS: BP 160/78; PULSE 78; BMI 23.5
--- NOTE | 2024-04-29 10:54 | MHC.OFFVIS ---
Vital Signs 04/29/24 10:54 Height 5 ft 5 in Weight 141 lb 1.533 oz BMI 23.5 BP 160/78 H Blood Pressure Location Lt brachial Position Sitting Pulse 78 Pulse Source Pulse Oximeter Intake Visit Reasons: pet KM f/up Nutrition Instructor Required: Yes Nutrition Instructor Name: ALCIDES [id number] Allergies latex [LATEX] Allergy (Severe, Verified 04/11/24 13:40) RASH naproxen [From NAPROSYN] Adverse Reaction (Intermediate, Verified 04/11/24 13:40) TACHYCARDIA Medication List - Last Reconciled 04/29/24 by Ghanshyam Daniel MD aspirin (Adult Low Dose Aspirin) 81 mg PO DAILY atorvastatin (Lipitor) 80 mg PO BEDTIME blood sugar diagnostic (FreeStyle Lite Strips) As directed carvedilol (Coreg) 25 mg PO BID docusate sodium 100 mg PO BID empagliflozin (Jardiance) 10 mg PO DAILY escitalopram oxalate (Lexapro) 20 mg PO DAILY@1800 ezetimibe 10 mg PO DAILY ferrous fumarate 325 mg PO BID insulin degludec (Tresiba FlexTouch U-100 insulin) 10 units subcut DAILY isosorbide mononitrate ER 30 mg PO QAM lisinopril 40 mg PO DAILY lorazepam (Ativan) 1 mg PO BEDTIME PRN metformin 1,000 mg PO BID mirtazapine 45 mg PO BEDTIME multivitamin 1 tab PO DAILY nifedipine ER 90 mg PO BEDTIME omeprazole 20 mg PO DAILY@0630 PRN pioglitazone 15 mg PO DAILY 30 days HPI Comments Details: 63-year-old female with h/o known CAD with 60-70% mid RCA stenosis which was FFR negative. In May when she was seen for perioperative cardiovascular risk assessment for fem-pop bypass surgery. She underwent surgery on 05/18/2020 and this was performed for a nonhealing left leg ulcer. She had left femoral to ohorc-ptj-ccth popliteal bypass with [place] Propaten. She had left popliteal thrombectomy and left femoral endarterectomy. She did well after that and in November she had repeat angiogram performed for claudication by Dr. Aragon. This showed occluded SFA with patent fem-pop bypass. There was ostial profunda femorals stenosis. There is a high-grade stenosis at the distal anastomosis site in the popliteal artery. Anterior tibial is patent. Posterior tibial artery was occluded mid calf. She had successful angioplasty of the distal anastomosis of fem-pop and profunda femoris. On follow-up with us she continued to had like pain. She has been taking medications regularly. Blood pressure control is okay right now. At home she is saying her blood pressures are very high at nighttime and she has reported blood pressures of 200s. 11/07/22: She returns for follow-up. She was found to have 70-90% right internal carotid artery stenosis on neck CTA performed in October 2022. She has seen Dr. Aragon and is being considered for surgery and is referred to us for perioperative cardiovascular risk assessment. She continues to smoke 1 pack per day. She has dyspnea on exertion. Also has non anginal left-sided pulsating chest discomfort which happens at rest. She has also noticed her blood pressure to be significantly elevated at times. She is return to office after 2 years. She had a moderate right coronary artery disease which was FFR negative previously. 04/29/2024: She is here for follow-up. She recently presented with NSTEMI and was taken for cardiac catheterization which showed multivessel disease. She was referred for coronary artery bypass surgery. Apparently her hemoglobin A1c was too high and she was told that she needs to bring it down before surgery. She is denying any chest discomfort but her blood pressure is elevated. She is saying that she ran out of all of her medications. I have advised her that she should be more mindful about her medications because she tends to get significant hypertension and ends up in the emergency department and should not run out of medicines and should be calling us earlier. We will send scripts for her. She is following with endocrinology regularly and I have advised her that she should work on her diabetes and as that improves she should undergo surgery which will with the best treatment for her. She has quite diffuse disease which will require long stents and with diabetes chances are that she may have InStent restenosis and may require reintervention in the future. [facility] Medical History NSTEMI (non-ST elevated myocardial infarction) Mild aortic valve stenosis LORE (obstructive sleep apnea) Chronic low back pain Lumbar spinal stenosis HTN (hypertension) Vitamin D deficiency HLD (hyperlipidemia) T2DM (type 2 diabetes mellitus) H. pylori infection CAD (coronary artery disease) Cyst (solitary) of breast Kidney calculi Arthritis Asthma HTN (hypertension) Diabetes Surgical History History of right-sided carotid endarterectomy (~11/2022) S/P aortogram History of esophagogastroduodenoscopy (EGD) Hx of colonoscopy History of breast surgery History of cardiac cath Family History Mother Diabetes Liver cancer Social History Household Members: Children Household Members Other:: friend and adult son Housing: Apartment Are you a primary childcare center director to a significant other at home: No Do you presently have visiting nurse or other home services: Yes (RN 2x/week) Alcohol intake: never Comment: refuses bed alarm Patient Tobacco Use Status: Current everyday Tobacco user Tobacco use type: Cigarette Cigarette Packs Per Day: 1 Cigarettes Per Day: 4 Years Smoked: 30 e-Cigarette/Vaping Use: Currently Using Second Hand Smoke Exposure: Yes Advance Directives Date on File: 09/26/23 service: No Current occupational status: unemployed and disabled Review of Systems Const Denies weakness ENT Denies dizziness Card Denies chest pain, Denies chest pain with activity, Denies syncope, Denies rapid heart rate, Denies pedal edema, Denies edema, Denies leg edema, Denies lightheadedness, Denies palpitations, Denies dyspnea, Denies dyspnea on exertion and Denies orthopnea Resp Denies cough, Denies dyspnea and Denies dyspnea on exertion GI Denies hematochezia and Denies change in stool character Musc Denies abnormal gait, Denies muscle cramps, Denies muscle weakness, Denies numbness, Denies radiating pain into limb and Denies tingling Neuro Denies abnormal gait, Denies dizziness, Denies syncope, Denies numbness, Denies tingling and Denies weakness Endo Denies palpitations Physical Exam Vital Signs: Last Vital Signs Pulse 78 04/29/24 10:54 BP 160/78 H 04/29/24 10:54 BMI result Body Mass Index 23.5 GENERAL APPEARANCE: in no acute distress, pleasant. NECK: no jugular venous distention. Right carotid endarterectomy scar. SKIN: no suspicious lesions, warm and dry. HEART: no murmurs, regular rate and rhythm. LUNGS: clear to auscultation bilaterally. ABDOMEN: soft, nontender. EXTREMITIES: no edema. PERIPHERAL PULSES: equal. NEUROLOGIC: No gross deficits, AAO X 3 Assessment & Plan Assessment & Plan (1) HTN (hypertension): Code(s): I10 - Essential (primary) hypertension Category: Medical (2) PAD (peripheral artery disease): Comment: 05/18/2020 - left fem-pop bypass 12/02/2020 - left angioplasty profundus femoris and popliteal inclusive is of distal anastomosis 05/17/2021 - right common iliac stent 04/13/2022 diagnostic angiogram Code(s): I73.9 - Peripheral vascular disease, unspecified Category: Medical (3) Stable angina: Code(s): I20.8 - Other forms of angina pectoris Category: Medical (4) CAD (coronary artery disease): Comment: cath 2016, med managed Code(s): I25.10 - Atherosclerotic heart disease of [place] coronary artery without angina pectoris Category: Medical Plan 63 year female with significant peripheral vascular disease, hypertension and diabetes. Blood pressure is elevated. She ran out of all her medications. I am sending scripts for her and we will arrange a 10 days visit with nurse for blood pressure check. She had multivessel disease diagnosed by cardiac catheterization and she was referred for coronary artery bypass surgery. She has seen surgery and she was told that currently her hemoglobin A1cs too high and she should have her sugars improved before they can operate on her. I think surgery will be the best option for her given diffuse coronary artery disease. She will work with her customer relations representative closely. Blood pressure is elevated but she is saying that she has run out of her medicines. I am sending medications for her and she will come back for blood pressure check soon. Follow-up with me otherwise 3 months. Thank you for allowing me to participate in the care of your patient. Please feel free to contact me if you have any questions. Medications: New isosorbide mononitrate ER 30 mg PO QAM 90 tabs 4RF nifedipine ER 90 mg PO BEDTIME 90 tabs 4RF Refilled carvedilol (Coreg) must administer with a meal/food 25 mg PO BID 120 tabs 4RF lisinopril 40 mg PO DAILY 90 tabs 4RF Coding Level of Care Code Est Pt Level 4 (70410) Diagnoses Hypertension, unspecified type I10 PAD (peripheral artery disease) I73.9 Stable angina I20.8 CAD (coronary artery disease) I25.10
== END 2024-04-29 11:22 | disposition home or self-care (01) ==
LOC: HO.HCS 09:34
PROVIDERS: PCP Family Medicine; Visit Provider Internal Medicine Cardiovascular Disease
DX: I11.9 Hypertensive heart disease without heart failure (principal); I25.118 Atherosclerotic heart disease of native coronary artery with other forms of angina pectoris; I73.9 Peripheral vascular disease, unspecified
CPT/HCPCS: 99214

== ENCOUNTER → 2024-04-29 09:33 | Outpatient (BNVA) | payer MEDICAID, SELFPAY | PROVIDERS: PCP Family Medicine; Visit Provider Internal Medicine Cardiovascular Disease | DX: I25.118 Atherosclerotic heart disease of native coronary artery with other forms of angina pectoris (principal); I10 Essential (primary) hypertension; I73.9 Peripheral vascular disease, unspecified; F17.210 Nicotine dependence, cigarettes, uncomplicated | CPT/HCPCS: 99212 ==

== ENCOUNTER 2024-05-18 19:52 | Emergency (ER) | payer MEDICAID, SELFPAY ==
--- NOTE | ~2024-05-18 | XR_ITS ---
CLINICAL HISTORY: cough 1 view chest x-ray Comparison: CR/SR - XR CHEST 1V - 11/11/23 00:23 EDT Findings: Heart size borderline enlarged. Atherosclerotic vascular disease of aortic arch. Low lung volumes. No consolidation, significant pleural effusion or pneumothorax. Osseous structures appear stable. IMPRESSION: 1. No acute findings. This document has been electronically signed by: Janette Dasilva MD on 05/18/2024 21:48:49
--- NOTE | 2024-05-18 20:11 | ECG_ITS ---
Test Reason : CP Blood Pressure : */* mmHG Vent. Rate : 80 BPM Atrial Rate : 80 BPM P-R Int : 126 ms QRS Dur : 78 ms QT Int : 364 ms P-R-T Axes : 44 -5 93 degrees QTcB Int : 419 ms Normal sinus rhythm Minimal voltage criteria for LVH, may be normal variant ( R in aVL ) Nonspecific ST and T wave abnormality Abnormal ECG When compared with ECG of 08-Jan-2024 20:23, T wave inversion no longer evident in Inferior leads T wave inversion no longer evident in Anterior leads Referred By: Generic ED Physician Electronically Signed By: JM DU
[2024-05-18 20:13] VITALS: BP 186/69; BP 230/89; PULSE 82; PULSE 92; RESP 91; TEMP 37.8; O2SAT 96; BMI 28.9
[2024-05-18 20:19] VITALS: BP 186/69; PULSE 82; RESP 16; TEMP 37.8; O2SAT 97
--- NOTE | 2024-05-18 20:22 | ED.URI ---
HPI - URI/Sore Throat General Chief Complaint: Upper Respiratory Symptoms Stated Complaint: CP, HTN, FLU + Time Seen by Provider: 05/18/24 20:13 Source: patient Mode of arrival: ambulatory Limitations: no limitations History of Present Illness ED Provider: HPI Narrative: Patient has been coughing with a upper respiratory symptoms for last 2 days with body aches headache chest tightness with cough, cough is mostly dry no other family member sick patient's blood pressure was elevated when EMS reached was 230/89 was given aspirin and 2 nitro and 4 mg of Zofran now patient is complaining of headache Related Data Home Medications ?Medication ?Instructions ?Recorded ?Confirmed metformin 1,000 mg tablet 1,000 mg PO BID 12/22/19 01/30/24 aspirin 81 mg tablet,delayed 81 mg PO DAILY 01/02/20 01/30/24 release (Adult Low Dose Aspirin) atorvastatin 80 mg tablet (Lipitor) 80 mg PO BEDTIME 01/02/20 01/30/24 escitalopram oxalate 20 mg tablet 20 mg PO DAILY@1800 01/02/20 01/30/24 (Lexapro) mirtazapine 45 mg tablet 45 mg PO BEDTIME 01/02/20 01/30/24 multivitamin 1 tab PO DAILY 01/02/20 01/30/24 blood sugar diagnostic (FreeStyle #10 ea 03/30/21 11/15/23 Lite Strips) insulin degludec 100 unit/mL (3 10 unit subcut DAILY 10/03/22 01/30/24 mL) subcutaneous pen (Tresiba FlexTouch U-100 insulin) omeprazole 40 mg capsule,delayed 20 mg PO DAILY@0630 PRN Heartburn 11/15/23 01/30/24 release empagliflozin 10 mg tablet 10 mg PO DAILY 01/01/24 01/30/24 (Jardiance) docusate sodium 100 mg capsule 100 mg PO BID 01/30/24 01/30/24 ezetimibe 10 mg tablet 10 mg PO DAILY 04/11/24 ferrous fumarate 325 mg (106 mg 325 mg PO BID 04/11/24 iron) tablet Previous Rx's ?Medication ?Instructions ?Recorded pioglitazone 15 mg tablet 15 mg PO DAILY 30 days #30 tabs 12/02/20 lorazepam 1 mg tablet (Ativan) 1 mg PO BEDTIME PRN anxiety/sleep 11/06/23 #10 tabs carvedilol 25 mg tablet (Coreg) 25 mg PO BID #120 tabs 04/29/24 isosorbide mononitrate 30 mg 30 mg PO QAM #90 tabs 04/29/24 tablet,extended release 24 hr lisinopril 40 mg tablet 40 mg PO DAILY #90 tabs 04/29/24 nifedipine 90 mg tablet,extended 90 mg PO BEDTIME #90 tabs 04/29/24 release 24 hr benzonatate 200 mg capsule 200 mg PO TID PRN cough #20 caps 05/18/24 aviityifth-azlscjmyvavyd-ibiligfa 1 tab PO Q6H PRN haeadace #20 tabs 05/18/24 50 mg-325 mg-40 mg tablet ibuprofen 600 mg tablet 600 mg PO Q6H PRN fever or pain 05/18/24 #30 tabs oseltamivir 75 mg capsule (Tamiflu) 75 mg PO BID 5 days #10 caps 05/18/24 Allergies Allergy/AdvReac Type Severity Reaction Status Date / Time latex [LATEX] Allergy Severe RASH Verified 05/18/24 20:16 naproxen [From NAPROSYN] AdvReac Intermediate TACHYCARDIA Verified 05/18/24 20:16 Review of Systems Review of Systems: Yes all other systems are reviewed and are negative [facility] Past Medical History Medical History NSTEMI (non-ST elevated myocardial infarction) Mild aortic valve stenosis LORE (obstructive sleep apnea) Chronic low back pain Lumbar spinal stenosis HTN (hypertension) Vitamin D deficiency HLD (hyperlipidemia) T2DM (type 2 diabetes mellitus) H. pylori infection CAD (coronary artery disease) Cyst (solitary) of breast Kidney calculi Arthritis Asthma HTN (hypertension) Diabetes Surgical History History of right-sided carotid endarterectomy (~11/2022) S/P aortogram History of esophagogastroduodenoscopy (EGD) Hx of colonoscopy History of breast surgery History of cardiac cath Family History Family History Mother Diabetes Liver cancer Social History Social History Household Members: Children Household Members Other:: friend and adult son Housing: Apartment Are you a primary skin care technician to a significant other at home: No Do you presently have visiting nurse or other home services: Yes (RN 2x/week) Alcohol intake: never Comment: refuses bed alarm Patient Tobacco Use Status: Current everyday Tobacco user Tobacco use type: Cigarette Cigarette Packs Per Day: 1 Cigarettes Per Day: 4 Years Smoked: 30 e-Cigarette/Vaping Use: Currently Using Second Hand Smoke Exposure: Yes Advance Directives Date on File: 09/26/23 service: No Current occupational status: unemployed and disabled Physical Exam Vital Signs: Vital Signs: Last Vital Signs Temp 98.4 F 05/18/24 22:56 Pulse 86 05/18/24 22:56 Resp 16 05/18/24 22:56 BP 163/71 H 05/18/24 22:56 Pulse Ox 95 05/18/24 22:56 O2 Del Method Room Air 05/18/24 22:56 BMI result Body Mass Index 28.9 Appearance: Alert. Oriented X3. No acute distress. Coughing frequently Eyes: No pallor or icterus ENT: Pharynx normal. Oral Mucosa moist Neck: Normal inspection. Neck supple. CVS: Normal heart rate and rhythm. Pulses normal. Respiratory: No respiratory distress. Equal air entry bilateral, no wheezing/rales/rhonchi bilateral prolonged expiration Abdomen: Soft and nontender. Bowel sounds are present, no mass palpable, no CVA tenderness Skin: Skin warm and dry. Normal skin color. Normal skin turgor. Extremities: No lower extremity edema. No calf tenderness Neuro: Oriented X 3. No motor deficit. Medications Administered Discontinued Medications Generic Name Dose Route Start Last Admin Trade Name Nabila PRN Reason Stop Dose Admin Acetaminophen/Butalbital/Caffeine 1 tab 05/18/24 22:11 05/18/24 22:46 Butalb/Acetamin/Caff 50/325/40 Tablet PO 05/18/24 22:12 1 tab ONCE ONE Administration Guaifenesin/Codeine Phosphate 10 ml 05/18/24 20:39 05/18/24 21:09 Guaifen/Codeine Sf 200/20/10ml 10 Ml Liquid PO 05/18/24 20:40 10 ml ONCE ONE Administration Ibuprofen 600 mg 05/18/24 22:07 05/18/24 22:46 Ibuprofen 600 Mg Tablet PO 05/18/24 22:08 600 mg ONCE ONE Administration Oseltamivir Phosphate 75 mg 05/18/24 22:07 05/18/24 22:46 Oseltamivir Phosphate 75 Mg Capsule PO 05/18/24 22:08 75 mg ONCE ONE Administration Medical Decision Making Medical Decision Making [facility] Narrative: Patient with influenza A with chest pain while coughing EKG without any ischemic changes without elevation of significant troponin will start patient on Tamiflu and Fioricet Differential Diagnosis Differential Diagnoses: The differential diagnosis associated with the presentation includes Admission/Observation Consideration of admission/observation: Escalation of care including admission/observation considered Lab Data [facility] Lab Attestation statement: I reviewed the patient's lab results. 05/18/24 20:44 05/18/24 20:44 Labs: Lab Results 05/18/24 Range/Units 20:44 WBC 5.3 (4.8-10.8) X10*3/uL RBC 3.57 L (4.20-5.50) X10*6/uL Hgb 10.3 L (12.0-16.0) g/dl Hct 31.8 L (37.0-47.0) % MCV 89.1 (80.0-98.0) fL MCH 28.9 (27.0-33.0) pg MCHC 32.4 (31.0-35.0) g/dl RDW 13.5 (11.0-16.0) % Plt Count 243 (160-400) X10*3/uL MPV 9.1 L (9.4-12.3) fL Immature Gran % (Auto) 0.4 (0.0-0.4) % Neut % (Auto) 69.3 (45-73) % Lymph % (Auto) 17.5 L (20-40) % Daggett % (Auto) 10.9 (2-11) % Eos % (Auto) 1.3 (0-4) % Baso % (Auto) 0.6 (0-2) % Lymph # (Auto) 0.9 L (1.2-4.9) X10*3/uL Daggett # (Auto) 0.6 (0.1-1.2) X10*3/uL Eos # (Auto) 0.1 (0.0-0.4) X10*3/uL Baso # (Auto) 0.0 (0.0-0.2) X10*3/uL Abs Immat Gran (auto) 0.02 (0.00-0.03) X10*3/uL Absolute Neuts (auto) 3.6 (2.0-8.3) x10*3/uL Absolute Nucleated RBC 0.000 (0.0-0.012) X10*3/uL Nucleated RBC % (auto) 0.0 (0.0-0.2) /100WBC Sodium 141 (135-145) mmol/L Potassium 4.4 (3.3-5.1) mmol/L Chloride 107 (96-108) mmol/L Carbon Dioxide 27 (22-29) mmol/L Anion Gap 11 L (12-20) BUN 14 (9-16) mg/dL Creatinine 0.95 (0.5-1.4) mg/dL Estim Creat Clear Calc 52.4 Estimated GFR 60 Random Glucose 169 H (60-115) mg/dL Calcium 8.3 L D (8.4-10.2) mg/dL Total Bilirubin 0.2 (0.0-1.0) mg/dL AST 18 (5-31) U/L ALT < 6 (0-31) U/L Alkaline Phosphatase 77 (39-117) U/L Troponin I High Sens 11.4 D (<3.5-17.0) ng/L Total Protein 5.7 L (6.5-8.0) g/dL Albumin 3.1 L (3.5-5.0) g/dL Influenza Type A (PCR) POSITIVE A (Negative) Influenza Type B (PCR) NEGATIVE (Negative) RSV RNA Qual (PCR) NEGATIVE (Negative) SARS-CoV-2 RNA (RT-PCR) NEGATIVE (Negative) Discharge Plan Discharge Clinical Impression: Influenza A, Migraine Patient Disposition: Home, Self-Care Instructions: Migraine Headache (ED), Influenza (ED) Additional Instructions: Drink plenty of fluids Ibuprofen, Fioricet for headache Tamiflu as prescribed Cough drops as prescribed Follow with your PCP if not better Prescriptions: New benzonatate 200 mg capsule 200 mg PO TID PRN (Reason: cough) Qty: 20 0RF bliltxmsce-vfcbkfhxiluiy-paei 50-325-40 mg tablet 1 tab PO Q6H PRN (Reason: haeadace) Qty: 20 0RF oseltamivir [Tamiflu] 75 mg capsule 75 mg PO BID 5 Days Qty: 10 0RF ibuprofen 600 mg tablet 600 mg PO Q6H PRN (Reason: fever or pain) Qty: 30 0RF No Action pioglitazone 15 mg tablet 15 mg PO DAILY 30 Days Qty: 30 11RF Jardiance 10 mg tablet 10 mg PO DAILY metformin 1,000 mg Tablet 1,000 mg PO BID lorazepam [Ativan] 1 mg tablet 1 mg PO BEDTIME PRN (Reason: anxiety/sleep) Qty: 10 0RF omeprazole 40 mg capsule,delayed release(DR/EC) 20 mg PO DAILY@0630 PRN (Reason: Heartburn) multivitamin Tablet 1 tab PO DAILY aspirin [Adult Low Dose Aspirin] 81 mg tablet,delayed release (DR/EC) 81 mg PO DAILY escitalopram oxalate [Lexapro] 20 mg tablet 20 mg PO DAILY@1800 mirtazapine 45 mg tablet 45 mg PO BEDTIME atorvastatin [Lipitor] 80 mg tablet 80 mg PO BEDTIME Tresiba FlexTouch U-100 100 unit/mL (3 mL) insulin pen 10 unit subcut DAILY (DME) FreeStyle Lite Strips Strip See Rx Instructions Not Applicable QID Qty: 10 Rx Instructions: As directed ezetimibe 10 mg tablet 10 mg PO DAILY carvedilol [Coreg] 25 mg tablet 25 mg PO BID Qty: 120 4RF Rx Instructions: must administer with a meal/food isosorbide mononitrate 30 mg tablet extended release 24 hr 30 mg PO QAM Qty: 90 4RF lisinopril 40 mg tablet 40 mg PO DAILY Qty: 90 4RF nifedipine 90 mg tablet extended release 24hr 90 mg PO BEDTIME Qty: 90 4RF docusate sodium 100 mg capsule 100 mg PO BID ferrous fumarate 325 mg (106 mg iron) tablet 325 mg PO BID Interventions: ED Discharge Assessment Last Done: 05/18/24 22:56 Discharge Date/Time: 05/18/24 22:58 Print Language: Australian
--- OUTSIDE RECORDS SUMMARY | 2024-05-18 20:33 | XMS_ITS | Encounter Summary ---
Author Organization [facility] [employer] Address [address] [facility] 7t [place] [address] Care Team Providers Care Lead Programmer Analyst Name Role Phone Radha Jamison DO Primary Care Provider [phone] Abdias Murillo PharmD Unavailable Unavail able Nelia Sullivan PharmD Unavailable [phone] Reason for Visit * Reason Onset Date Comments uber 05/08/2023 Encounter Details Date Type Department Care Team ([facility] st Contact Info) Description 05/08/2023 Telephone [facility] MEDICINE [address] [place] [address] Radha Jamison DO [address] [place] [address] uber Social History Tobacco Use Types Packs/Day [...] / denial letter via mail. PT-1 Request [id number] Pending . [facility] [address] [place] [address] Iv Therapy Nurse noticed pt has pending referrals. Iv Therapy Nurse has added a note to each to add PT1 for referred tooffice. * Telephone Encounter - Ginna Stephen RN - 05/10/2023 9:31 AM EDT Uber booked for tomorrow 8:45am. TC placed to pt. And made pt. Aware. Pt. Also reports PT-1 expiredand would like it renewed for next time, to [facility] * Telephone Encounter - Ciera Carson - 05/10/2023 9:07 AM EDT Tc from pt calling in regards to message above. Pt also received a call, selling underwriter does not see any documentation. Please contact pt at [phone] * Telephone Encounter - Ciera Carson - 05/08/2023 12:54 PM EDT Tc from pt states will need uber transportation for 05/10 with provider. Please contact pt at [phone] documented in this encounter Plan of Treatment Upcoming Encounters Date Type Department Care Team (Late st Contact Info) Description 05/20/2024 11:45 AM EDT Office Visit [address] [address] Radha Jamison DO [address] [place] [address] 06/14/2024 10:00 AM EDT Medication Management [address] [address] Nelia Sullivan PharmD [address] [place] [phone] 06/25/2024 9:45 AM EDT Office Visit [address] [address] Radha Jamison DO [address] [place] [address] documented as of this encounter Goals Goal [...] documented as of this encounter Care Teams Lead Programmer Analyst Relationship Specialty Start Date End Date Radha Jamison DO [address] [place] [address] PCP - General Family Medicine 01/26/12 Abdias Murillo, PharmD [address] [place] [address] Pharmacist Internal Medicine 03/21/22 08/30/23 Nelia Sullivan, KeithD [address] [place] [address] Pharmacist Internal Medicine 08/31/23 Laurel Monterroso Operations Research Group ManagerVideo Game Engineer 10/27/22 Saige Aguilar 09/26/23 documented as of this encounter
--- OUTSIDE RECORDS SUMMARY | 2024-05-18 20:33 | XMS_ITS | Encounter Summary ---
Author Organization [employer] Address [address] [facility] 7t [place] [address] Care Team Providers Care Director Of Materials Name Role Phone Radha Jamison DO Primary Care Provider [phone] Abdias Murillo PharmD Unavailable Unavail able Nelia Sullivan PharmD Unavailable [phone] Reason for Visit * Reason Comments Med Refill Encounter Details Date Type Department Care Team (Late st Contact Info) Description 04/14/2023 Refill [facility] MEDICINE [address] [place], [place] [phone] Radha Jamison DO [address] [place], [place] [phone] Type 2 diabetes mellitus with hyperglycemia, with long-term current use of insulin ([facility]) Social History Tobacco Use Types Packs/Day Years [...] Description 05/20/2024 11:45 AM EDT Office Visit [address] [address] aRdha Jamison DO [address] [place] [address] 06/14/2024 10:00 AM EDT Medication Management [address] [address] Nelia Sullivan PharmD [address] [place] [address] 06/25/2024 9:45 AM EDT Office Visit [address] [address] Radha Jamison DO [address] [place] [address] documented as of this encounter Goals Goal Patient Goal Type Associated Problems Recent Progress Patient-Stated? Author Hemoglobin A1c < 7 Result Component 10.6( 5 12:27 PM EST) No Abdias Murillo, PharmD documented as of this encounter Visit Diagnoses Diagnosis Type 2 diabetes mellitus with hyperglycemia, with long-term current use of insulin ([facility]) documented in this encounter Additional Health Concerns Assessment Noted Time PHQ-9 Depression Total Score: 4 11/09/19 23 11:27 AM EDT documented as of this encounter Care Teams Director Of Materials Relationship Specialty Start Date End Date Radha Jamison DO [address] [place] [address] PCP - General Family Medicine 01/26/12 Abdias Murillo, PharmD [address] [place] [address] Pharmacist Internal Medicine 03/21/22 08/30/23 Nelia Sullivan PharmD [address] [place] [address] Pharmacist Internal Medicine 08/31/23 Laurel Monterroso Dolly PusherInstrument Lens Generator 10/27/22 Saige Aguilar 09/26/23 documented as of this encounter
--- OUTSIDE RECORDS SUMMARY | 2024-05-18 20:33 | XMS_ITS | Encounter Summary ---
Author Organization [employer] Address [address] [facility] 7t [place] [address] Care Team Providers Care Front Office Supervisor Name Role Phone Radha Jamison DO Primary Care Provider [phone] Nelia Sullivan PharmD Unavailable [phone] Reason for Visit * Reason Comments Med Refill Encounter Details Date Type Department Care Team ([facility] st Contact Info) Description 03/19/2024 Refill [facility] MEDICINE [address] [place], [place] [phone] Radha Jamison DO [address] [place] [address] Chronic bilateral low back pain, unspecified whether sciatica present Social History Tobacco Use Types Packs/Day Years Used Date Smoking Tobacco: Every Day Cigarettes 1 44.7 Started: 08/31/1979 Passive Smoke Exposure: Current Smokeless [...] the past 12 months, has t he [employer], gas, oil or water [employer] threatened to shut off services in your [...] Description 05/20/2024 11:45 AM EDT Office Visit [facility] MEDICINE [address] [place] [address] Radha Jamison DO [address] [place] [address] 06/14/2024 10:00 AM EDT Medication Management [facility] MEDICINE [address] [place] [address] Nelia Sullivan, PharmD [address] [place] [address] 06/25/2024 9:45 AM EDT Office Visit [address] [address] Radha Jamison, [address] [place] [address] documented as of this encounter Goals Goal Patient Goal Type Associated Problems Recent Progress Patient-Stated? Author Record your blood pressure once per day Blood Pressure No Nelia Sullivan, PharmD Blood Pressure < 140/90 Blood Pressure 138/62(2024 10:52 AM EDT) No Yazmin Sullivansa, PharmD Smoking cessation General No PuiaFeliceNelia, PharmD Patient will adhere to medication regimen General No AnaiiaFeliceNelia, PharmD Hemoglobin A1c < 7 Result Component 10.6(03/05/19 12:27 PM EST) No DellogAbdias cotto, PharmD Record your blood sugar as directed [...] documented as of this encounter Care Teams Front Office Supervisor Relationship Specialty Start Date End Date Radha Jamison DO [address] [place] [address] PCP - General Family Medicine 01/26/12 Nelia Sullivan, PharmD [address] [place] [address] Pharmacist Internal Medicine 08/31/23 Laurel Monterroso Account Services RepresentativeBlasting Clay Miner 10/27/22 Saige Aguilar 09/26/23 documented as of this encounter
--- OUTSIDE RECORDS SUMMARY | 2024-05-18 20:33 | XMS_ITS | Encounter Summary ---
Author Organization [employer] Address [address] [facility] 7t [place] [address] Care Team Providers Care Greek Professor Name Role Phone Radha Jamison DO Primary Care Provider [phone] Nelia Sullivan PharmD Unavailable [phone] Reason for Visit * Reason Comments Med Refill Encounter Details Date Type Department Care Team ([facility] Contact Info) Description 05/07/2024 Refill [facility] MEDICINE [address] [place], [place] [phone] Radha Jamison DO [address] [place] [address] Social History Tobacco Use Types Packs/Day Years [...] Description 05/20/2024 11:45 AM EDT Office Visit [facility] MEDICINE [address] [place] [address] Radha Jamison DO [address] [place] [address] 06/14/2024 10:00 AM EDT Medication Management [address] [address] Nelia Sullivan, PharmD [address] [place] [address] 06/25/2024 9:45 AM EDT Office Visit [address] [address] Radha Jamison DO [address] [place] [address] documented as of this encounter Goals Goal Patient Goal Type Associated Problems Recent Progress Patient-Stated? Author Record your blood pressure once per day Blood Pressure No Nelia Sullivan, PharmD Blood Pressure < 140/90 Blood Pressure 138/62(2024 10:52 AM EDT) No Nelia Sullivan, PharmD Smoking cessation General [...] documented as of this encounter Care Teams Greek Professor Relationship Specialty Start Date End Date Radha Jamison DO [address] [place] [address] PCP - General Family Medicine 01/26/12 Nelia Sullivan PharmD [address] [place] [address] Pharmacist Internal Medicine 08/31/23 Laurel Monterroso Bindery LeadpersonSecurities Lending Trader 10/27/22 Saige Aguilar 09/26/23 documented as of this encounter
--- OUTSIDE RECORDS SUMMARY | 2024-05-18 20:33 | XMS_ITS | Encounter Summary ---
Author Organization [employer] Address [address] [facility] 7t [place] [address] Care Team Providers Care Digital Marketing Lead Name Role Phone Radha Jamison DO Primary Care Provider [phone]- [phone] Abdias Murillo PharmD Unavailable Unavail able Nelia Sullivan PharmD Unavailable [phone] Reason for Visit * Reason Comments Med Refill Encounter Details Date Type Department Care Team (Late st Contact Info) Description 04/14/2023 Refill [facility] MEDICINE [address] [place], [place] [phone] Radha Jamison DO [address] [place], [place] [phone] Type 2 diabetes mellitus with hyperglycemia, with long-term current use of insulin ([facility]) Social History Tobacco Use Types [...] Description 05/20/2024 11:45 AM EDT Office Visit [address] [address] Radha Jamison DO [address] [place] [address] 06/14/2024 10:00 AM EDT Medication Management [address] [address] Nelia Sullivan PharmD [address] [place] [address] 06/25/2024 9:45 AM EDT Office Visit [address] [address] Radha Jamison DO [address] [place] [address] documented as of this encounter Goals Goal Patient Goal Type Associated Problems Recent Progress Patient-Stated? Author Hemoglobin A1c < 7 Result Component 10.6( 5 12:27 PM EST) No Abdias Murillo, PharmD documented as of this encounter Visit Diagnoses Diagnosis Type 2 diabetes mellitus with hyperglycemia, with long-term current use of insulin ([facility]) documented in this encounter Additional Health Concerns Assessment Noted Time PHQ-9 Depression Total Score: 4 11/09/19 23 11:27 AM EDT documented as of this encounter Care Teams Digital Marketing Lead Relationship Specialty Start Date End Date Radha Jamison DO [address] [place] [address] PCP - General Family Medicine 01/26/12 Abdias Murillo, PharmD [address] [place] [address] Pharmacist Internal Medicine 03/21/22 08/30/23 Nelia Sullivan PharmD [address] [place] [address] Pharmacist Internal Medicine 08/31/23 Laurel Monterroso Furniture FinisherAuto Wash Buffer 10/27/22 Saige Aguilar 09/26/23 documented as of this encounter
--- OUTSIDE RECORDS SUMMARY | 2024-05-18 20:33 | XMS_ITS | Encounter Summary ---
Author Organization [employer] Address [address] [facility] 7t [place] [address] Care Team Providers Care Automotive Sales Representative Name Role Phone Radha Jamison DO Primary Care Provider [phone]- [phone] Nelia Sullivan PharmD Unavailable [phone] Reason for Visit * Reason Comments Med Refill Encounter Details Date Type Department Care Team ([facility] st Contact Info) Description 02/29/2024 Refill [facility] MEDICINE [address] [place], [place] [phone] Radha Jamison DO [address] [place] [address] Chronic bilateral low back pain, unspecified whether [...] the past 12 months, has t he [employer], gas, oil or water [employer] threatened to shut off services in your [...] until seen by PCP or seen by BIG DATA ANALYTICS LEAD. Scheduled BIG DATA ANALYTICS LEAD 03/05/24. documented in this encounter Plan of Treatment Upcoming Encounters Date Type Department Care Team (Late st Contact Info) Description 05/20/2024 11:45 AM EDT Office Visit [facility] MEDICINE [address] [place] [address] Radha Jamison DO [address] [place] [address] 06/14/2024 10:00 AM EDT Medication Management [facility] MEDICINE [address] [place] [address] Nelia Sullivan, KeithD [address] [place] [address] 06/25/2024 9:45 AM EDT Office Visit [facility] MEDICINE [address] [place] [address] Radha Jamison DO [address] [place] [address] documented as of this encounter Goals Goal Patient Goal Type Associated Problems Recent Progress Patient-Stated? Author Record your blood pressure once per day Blood Pressure No PuYazmin cortessa, PharmD Blood Pressure < 140/90 Blood Pressure [...] as of this encounter Care Teams Automotive Sales Representative Relationship Specialty Start Date End Date [place] [address] PCP - General Family Medicine 01/26/12 Nelia Sullivan, [place] [address] Pharmacist Internal Medicine 08/31/23 Laurel Monterroso Canceling Machine OperatorFiscal Accountant 10/27/22 Saige Aguilar 09/26/23 documented as of this encounter
--- OUTSIDE RECORDS SUMMARY | 2024-05-18 20:33 | XMS_ITS | Encounter Summary ---
Author Organization [employer] Address 75 [facility] 7t [place] [address] Care Team Providers Care Dimension Mill Worker Name Role Phone Radha Jamison DO Primary Care Provider +1- [phone] Nelia Sullivan PharmD Unavailable [phone] Reason for Visit * Reason Onset Date Comments Returning Call 01/17/2024 Hospital Follow-up 01/17/2024 Encounter Details Date Type Department Care Team ([facility] st Contact Info) Description 01/17/2024 Telephone [facility] [address] [place] [address] Radha Jamison DO 230 [place] [address] Returning Call ; Hospital Follow-up Social History [...] t he electric, gas, oil or water [email or web address] threatened to shut off services in your [...] Description 05/20/2024 11:45 AM EDT Office Visit [facility] [address] [place] [address] Radha Jamison DO [address] [place] [address] 06/14/2024 10:00 AM EDT Medication Management [facility] [address] [place] [address] [phone] Yazmin Sullivansa, PharmD [place], [place] [phone] 06/25/2024 9:45 AM EDT Office Visit [facility] [address] [place] [address] Radha Jamison DO [address] [place], [place] [phone] documented as of this encounter Goals Goal Patient Goal Type Associated Problems Recent Progress Patient-Stated? Author Record your blood pressure once per day Blood Pressure No PuiaFeliceNelia, PharmD Blood Pressure < 140/90 Blood Pressure 138/62(2024 10:52 AM EDT) No Puia Nelia, PharmD Smoking cessation General No Puia, Nelia, PharmD Patient will adhere to medication regimen General No Puia Nelia, PharmD Hemoglobin A1c < 7 Result Component 10.6(03/05/19 25 12:27 PM EST) No Abdias Murillo, PharmD Record your blood sugar as directed Result Component No Puia Nelia, PharmD Note: Use CGM, ensuring sensor is scanned at least once every 8 hours to capture 24H data. Check BG manually, as directed. documented as of this encounter Visit Diagnoses Not on filedocumented in this encounter Additional Health Concerns Assessment Noted Time PHQ-9 Depression Total Score: 10 024 10:24 AM EST documented as of this encounter Care Teams Dimension Mill Worker Relationship Specialty Start Date End Date Radha Jamison DO [place], [place] [phone] PCP - General Family Medicine 01/26/12 Nelia Sullivan, PharmD [address] [place] [address] Pharmacist Internal Medicine 08/31/23 Laurel Monterroso Talent Management ManagerWine Consultant 10/27/22 Saige [facility] 09/26/23 documented as of this encounter
--- OUTSIDE RECORDS SUMMARY | 2024-05-18 20:33 | XMS_ITS | Encounter Summary ---
Author Organization [employer] Address 75 [facility] 7t [place] [address] Care Team Providers Care Roofing Sales Representative Name Role Phone Radha Jamison DO Primary Care Provider +1- [phone] Nelia Sullivan PharmD Unavailable [phone] Reason for Visit * Reason Comments Med Refill Encounter Details Date Type Department Care Team ([facility] st Contact Info) Description 05/17/2024 Refill [facility] [address] [place], [place] [phone] Radha Jamison DO 230 [place] [address] Chronic bilateral low back pain, unspecified whether [...] the past 12 months, has t he [employer], gas, oil or water [employer] threatened to shut off services in your [...] Description 05/20/2024 11:45 AM EDT Office Visit [facility] [address] [place] [address] Radha Jamison DO [address] [place] [address] 06/14/2024 10:00 AM EDT Medication Management [facility] [address] [place] [address] Nelia Sullivan, PharmD [address] [place] [address] 06/25/2024 9:45 AM EDT Office Visit [address] [address] Radha Jamison, [address] [place] [address] documented as of this encounter Goals Goal [...] documented as of this encounter Care Teams Roofing Sales Representative Relationship Specialty Start Date End Date Radha Jamison DO [address] [place] [address] PCP - General Family Medicine 01/26/12 Nelia Sullivan, PharmD [address] [place] [address] Pharmacist Internal Medicine 08/31/23 Laurel Monterroso Parts InterpreterElectric Truck Operator 10/27/22 Saige Aguilar 09/26/23 documented as of this encounter
--- OUTSIDE RECORDS SUMMARY | 2024-05-18 20:33 | XMS_ITS | Encounter Summary ---
Author Organization [employer] Address 75 [facility] 7t [place] [address] Care Team Providers Care Crawler Dragline Operator Name Role Phone Radha Jamison DO Primary Care Provider [phone]- [phone] Nelia Sullivan PharmD Unavailable [phone] Reason for Visit * Reason Comments Med Refill Encounter Details Date Type Department Care Team ([facility] Contact Info) Description 03/05/2024 Telephone [facility] [address] [place], [place] [phone] Radha Jamison DO [address] [place] [address] Med Refill Social History Tobacco Use Types [...] Description 05/20/2024 11:45 AM EDT Office Visit [facility] [address] [place] [address] Radha Jamison, [address] [place] [address] 06/14/2024 10:00 AM EDT Medication Management [address] [address] PuiaNelia, PharmD [address] [place] [address] 06/25/2024 9:45 AM EDT Office Visit [address] [address] Radha Jamison, [address] [place] [address] documented as of this encounter Goals Goal [...] documented as of this encounter Care Teams Crawler Dragline Operator Relationship Specialty Start Date End Date Radha Jamison DO [address] [place] [address] PCP - General Family Medicine 01/26/12 Nelia Sullivan PharmD [address] [place] [address] Pharmacist Internal Medicine 08/31/23 Laurel Monterroso Pepper CutterAssistant Teacher Primary 10/27/22 Saige Aguilar 09/26/23 documented as of this encounter
--- OUTSIDE RECORDS SUMMARY | 2024-05-18 20:33 | XMS_ITS | Clinical Summary ---
Author Organization Unknown Care Team Providers Care Vending Machine Mechanic Name Role Phone ADILIA FELIPE, VIOLETA Unavailable Unavailable SURJIT DAVID, ERIC Unavailable Unavailable Payers Payer Name Policy Type Policy Number Effective Date Expira tion Date MEDICAID [facility] [id number] Problems Condition Name Condition Details Condition Category Status Onset Date Resolution Date Last Treatment Date Treating Clinician Comments ESSENTIAL (PRIMARY) HYPERTENSION Active 09-21 00:00: 00 ATHSCL HEART DISEASE OF [place] CORONARY ARTERY W/O ANG PCTRS Active 09-21 [...] CIGARETTES, UNCOMPLICATE D Active 09-21 00:00: 00 PHILOSOPHY AND RELIGION INSTRUCTOR (CURRENT) USE OF INSULIN Active 09-21 00:00: 00 PHILOSOPHY AND RELIGION INSTRUCTOR (CURRENT) USE OF ANTITHROMBOT ICS/ANTIPLAT ELETS Active [...] release 24 hr 8-05 00:00: 00 Yes [id number] 60 mg AT BEDTIME 60 mg AT BEDTIME (route: oral) Med Classific ation: Cardiovas cular Therapy Agents oxycodone 5 mg tablet 09-04 00:00: 00 11-19 23:59 :00 No [id number] Unavailable 5 mg FIVE TIMES DAILY NEEDED 5 mg FIVE TIMES DAILY NEEDED (route: oral) Med Classific ation: Analgesic , Anti-infl ammatory or Antipyret ic gabapentin 600 mg tablet 09-03 00:00: 00 09-25 23:59 :00 No [id number] 600 mg 2 TIMES DAILY 600 mg 2 TIMES DAILY (route: oral) Med Classific ation: Central Nervous System Agents nicotine 21 mg/24 hr daily transdermal patch 08-30 00:00: 00 Yes [id number] Unavailable 21 mg DAILY 21 mg DAILY (route: transderma l) Med Classific ation: Chemical Dependenc y, Agents to Treat Alcohol Prep Pads 08-29 00:00: 00 Yes [id number] 1 pads, medicat ed DIRECTED THREE TIMES DAILY AND NEEDED 1 pads, medicated DIRECTED THREE TIMES DAILY AND NEEDED (route: topical) Med Classific ation: Antisepti cs and Disinfect ants amitriptyli ne 50 mg tablet 08-29 00:00: 00 Yes [id number] Unavailable 50 mg AT BEDTIME 50 mg AT BEDTIME (route: oral) Med Classific ation: Central Nervous System Agents Asmanex HFA 100 mcg/actuati on aerosol inhaler 08-29 00:00: 00 Yes [id number] 2 puff TWICE DAILY 2 puff TWICE DAILY (route: inhalation ) Med Classific ation: Respirato ry Therapy Agents atorvastati n 80 mg tablet 08-29 00:00: 00 Yes [id number] Unavailable 80 mg BEDTIME 80 mg BEDTIME (route: oral) Med Classific ation: Cardiovas cular Therapy Agents carvedilol 25 mg tablet 08-29 00:00: 00 Yes [id number] Unavailable 25 mg TWICE DAILY 25 mg TWICE DAILY (route: oral) Med Classific ation: Cardiovas cular Therapy Agents clopidogrel 75 mg tablet 08-29 00:00: 00 Yes [id number] 75 mg EVERY AM 75 mg EVERY AM (route: oral) Med Classific ation: Hematolog ical Agents docusate sodium 100 mg capsule 08-29 00:00: 00 09-25 23:59 :00 No [id number] Unavailable 100 mg TWICE DAILY 100 mg TWICE DAILY (route: oral) Med Classific ation: Gastroint estinal Therapy Agents escitalopra m 20 mg tablet 08-29 00:00: 00 Yes [id number] Unavailable 20 mg EVERY PM 20 mg EVERY PM (route: oral) Med Classific ation: Central Nervous System Agents FeroSul 325 mg (65 mg iron) tablet 08-29 00:00: 00 09-25 23:59 :00 No [id number] Unavailable 325 mg TWICE DAILY IN THE MORNING AND AT BEDTIME 325 mg TWICE DAILY IN THE MORNING AND AT BEDTIME (route: oral) Med Classific ation: Electroly te Balance-N utritiona l Products gabapentin 800 mg tablet 08-29 00:00: 00 Yes [id number] 800 mg 2 TIMES DAILY 800 mg 2 TIMES DAILY (route: oral) Med Classific ation: Central Nervous System Agents hydralazine 25 mg tablet 08-29 00:00: 00 Yes [id number] Unavailable 25 mg 3 TIMES DAILY 25 mg 3 TIMES DAILY (route: oral) Med Classific ation: Cardiovas cular Therapy Agents hydralazine 50 mg tablet 08-29 00:00: 00 09-25 23:59 :00 No [id number] Unavailable 50 mg THREE TIMES DAILY IN THE MORNING AT 50 mg THREE TIMES DAILY IN THE MORNING AT (route: oral) Med Classific ation: Cardiovas cular Therapy Agents mirtazapine 45 mg tablet 08-29 00:00: 00 Yes [id number] Unavailable 45 mg AT BEDTIME 45 mg AT BEDTIME (route: oral) Med Classific ation: Central Nervous System Agents omeprazole 20 mg capsule,del ayed release 08-29 00:00: 00 Yes [id number] 20 mg TWICE DAILY 20 mg TWICE DAILY (route: oral) Med Classific ation: Gastroint estinal Therapy Agents lisinopril 40 mg tablet 09-25 00:00: 00 Yes [id number] 40 mg DAILY 40 mg DAILY (route: oral) Med Classific ation: Cardiovas cular Therapy Agents metformin 1,000 mg tablet 09-25 00:00: 00 Yes [id number] 1000 mg 2 TIMES DAILY 1000 mg 2 TIMES DAILY (route: oral) Med Classific ation: Endocrine multivitami n tablet 09-25 00:00: 00 Yes [id number] 1 tablet DAILY 1 tablet DAILY (route: oral) Med Classific ation: Electroly te Balance-N utritiona l Products nifedipine ER 60 mg tablet,exte nded release 09-25 00:00: 00 Yes [id number] 60 mg EVERY PM 60 mg EVERY PM (route: oral) Med Classific ation: Cardiovas cular Therapy Agents pioglitazon e 15 mg tablet 09-25 00:00: 00 Yes [id number] 15 mg DAILY 15 mg DAILY (route: oral) Med Classific ation: Endocrine Tresiba FlexTouch U-100 insulin 100 unit/mL (3 mL) subcutane s pen 09-25 00:00: 00 Yes [id number] 10 In unit DAILY 10 In unit DAILY (route: subcutaneo ) Med Classific ation: Endocrine Vital Signs Vital Name Observation Time Observation Value Commen ts Temperature 2024-05-17 12:47:00.000 97.7 [degF] Temperature 2024-05-16 12:12:00.000 97.4 [degF] Temperature 2024-05-15 13:15:00.000 97.3 [degF] Temperature 2024-05-14 12:26:00.000 97.4 [degF] Temperature 2024-05-13 13:24:00.000 97.4 [degF] Temperature 2024-05-12 11:28:00.000 97.7 [degF] Temperature 2024-05-11 11:29:00.000 97.8 [degF] Temperature 2024-05-10 15:28:00.000 97.9 [degF] Temperature 2024-05-09 12:02:00.000 97.4 [degF] Temperature 2024-05-08 12:56:00.000 97.3 [degF] Temperature 2024-05-07 14:18:00.000 97.7 [degF] Temperature 2024-05-06 13:46:00.000 97.4 [degF] Temperature 2024-05-05 11:59:00.000 98 [degF] Temperature 2024-05-04 10:12:00.000 98.1 [degF] Temperature 2024-05-03 12:33:00.000 98.1 [degF] Temperature 2024-05-02 12:52:00.000 97.5 [degF] Temperature 2024-05-01 12:50:00.000 97.5 [degF] Temperature 2024-04-30 22:16:00.000 98 [degF] Temperature 2024-04-29 13:21:00.000 98 [degF] Temperature 2024-04-28 11:08:00.000 98.1 [degF] Temperature 2024-04-27 12:21:00.000 97.5 [degF] Temperature 2024-04-26 12:22:00.000 97.5 [degF] Temperature 2024-04-25 12:18:00.000 97.5 [degF] Temperature 2024-04-24 12:21:00.000 98 [degF] Temperature 2024-04-23 23:58:00.000 97.5 [degF] Temperature 2024-04-22 13:05:00.000 97.5 [degF] Temperature 2024-04-21 11:24:00.000 98 [degF] Temperature 2024-04-20 11:13:00.000 97.5 [degF] Temperature 2024-04-19 11:47:00.000 97.4 [degF] Temperature 2024-04-18 12:20:00.000 98 [degF] Temperature 2024-04-17 13:34:00.000 97.8 [degF] Temperature 2024-04-16 13:58:00.000 97.5 [degF] Temperature 2024-04-15 12:05:00.000 97.5 [degF] Temperature 2024-04-14 12:27:00.000 97.8 [degF] Temperature 2024-04-13 12:17:00.000 98.1 [degF] Temperature 2024-04-12 12:27:00.000 97.3 [degF] Temperature 2024-04-11 12:38:00.000 98.1 [degF] Temperature 2024-04-10 12:32:00.000 97.5 [degF] Temperature 2024-04-09 [...] 2024-03-24 11:28:00.000 97.5 [degF] Systolic Blood Pressure 2024-05-08 12:57:00.000 144 mm [Hg] Systolic Blood Pressure 2024-04-11 12:39:00.000 144 mm [Hg] Systolic Blood Pressure 2024-04-10 12:32:00.000 142 mm [Hg] Systolic Blood Pressure 2024-04-09 21:36:00.000 134 mm [Hg] Systolic Blood Pressure 2024-04-07 12:06:00.000 122 mm [Hg] Systolic Blood Pressure 2024-04-05 12:11:00.000 138 mm [Hg] Systolic Blood Pressure 2024-03-31 22:23:00.000 148 mm [Hg] Systolic Blood Pressure 2024-03-30 11:38:00.000 144 mm [Hg] Systolic Blood Pressure 2024-03-27 23:44:00.000 144 mm [Hg] Diastolic Blood Pressure 2024-05-08 12:57:00.000 84 mm [Hg] Diastolic Blood Pressure 2024-04-11 12:39:00.000 80 mm [Hg] Diastolic Blood Pressure 2024-04-10 12:32:00.000 [...] AWARENESS FOR SAFETY AND WILL NOTIFY CLINICAL WIRE ANNEALER AND PHYSICIAN/PROVIDER WITH ANY CHANGE IN CONDITION. [code = SKILLED NURSE WILL MAINTAIN SITUATIONAL AWARENESS FOR SAFETY AND WILL NOTIFY CLINICAL WIRE ANNEALER AND PHYSICIAN/PROVIDER WITH ANY CHANGE IN CONDITION.] [...] MEDICATIONS DAILY AND PRE-POUR MEDICATIONS TILL NEXT [facility] VISIT PER MEDICATION LIST. [code = SKILLED NURSE TO ADMINISTER MEDICATIONS DAILY AND PRE-POUR MEDICATIONS TILL NEXT [facility] VISIT PER MEDICATION LIST.] Future Scheduled Test [...] CARE WILL BE ESTABLISHED THAT MEETS PATIENT'S [facility] NEEDS AND INCLUDES PATIENT GOAL FOR HOME [...] Met 2023-09-26 00:00:00 2024-05-22 00:00:00 Outpatient RECERTIFIC ATERIC J[facility] [id number]
--- OUTSIDE RECORDS SUMMARY | 2024-05-18 20:33 | XMS_ITS | Encounter Summary ---
Author Organization [employer] Address 75 [facility] 7t [place] [address] Care Team Providers Care Electric Motor Tester Name Role Phone Radha Jamison DO Primary Care Provider [phone]- [phone] Nelia Sullivan PharmD Unavailable Reason for Visit * Reason Onset Date Comments Med Refill 03/06/2024 Encounter Details Date Type Department Care Team (Late st Contact Info) Description 03/06/2024 Telephone [facility] MED[facility]INE [address] [place], [place] [phone] Radha Jamison DO [address] [place], [place] [phone] Med Refill Social History Tobacco Use Types [...] the past 12 months, has t he [employer], gas, oil or water [employer] threatened to shut off services in your [...] immediate release tablet To be sent to: [facility] pharmacy documented in this encounter Plan of Treatment Upcoming Encounters Date Type Department Care Team (Late st Contact Info) Description 05/20/2024 11:45 AM EDT Office Visit [facility] [address] [place] [address] Radha Jamison DO [address] [place] [address] 06/14/2024 10:00 AM EDT Medication Management [facility] [address] [place] [address] Nelia Sullivan, PharmD [address] [place] [address] 06/25/2024 9:45 AM EDT Office Visit [facility] [address] [place], [place] [phone] Radha Jamison DO [address] [place] [address] documented as of this encounter Goals Goal Patient Goal Type Associated Problems Recent Progress Patient-Stated? Author Record your blood pressure once per day Blood Pressure No Nelia Sullivan, PharmD Blood Pressure < 140/90 Blood Pressure 138/62(2024 10:52 AM EDT) No Nelia Sullivan, PharmD Smoking cessation General No Yazmin Sullivansa, [...] Noted Time PHQ-9 Depression Total Score: 10 12/20/ 024 10:24 AM EST documented as of this encounter Care Teams Electric Motor Tester Relationship Specialty Start Date End Date Radha Jamison DO [address] [place] [address] PCP - General Family Medicine 01/26/12 Nelia Sullivan, PharmD [address] [place] [address] Pharmacist Internal Medicine 08/31/23 Laurel Monterroso Screenplay WriterAutomatic Door Mechanic 10/27/22 Saige Aguilar 09/26/23 documented as of this encounter
--- OUTSIDE RECORDS SUMMARY | 2024-05-18 20:33 | XMS_ITS | Encounter Summary ---
Author Organization [employer] Address 75 [facility] 7t [place] [address] Care Team Providers Care Speech And Language Tutor Name Role Phone Radha Jamison DO Primary Care Provider [phone]- [phone] Nelia Sullivan PharmD Unavailable [phone] Reason for Visit * Reason Comments Med Refill Encounter Details Date Type Department Care Team ([facility] st Contact Info) Description 05/16/2024 Refill [facility]INE 230 [place], [place] [phone] Radha Jamison DO 230 [place] [address] Chronic bilateral low back pain, unspecified whether [...] the past 12 months, has t he [employer], gas, oil or water [employer] threatened to shut off services in your [...] encounter Miscellaneous Notes * Telephone Encounter - Ginna Stephen RN - 05/16/2024 2:43 PM EDT Pt. Has been advised no further refills per taper. F/up appt with PCP 05/20/24 documented in this encounter Plan of Treatment Upcoming Encounters Date Type Department Care Team (Late st Contact Info) Description 05/20/2024 11:45 AM EDT Office Visit [facility] MED[facility]INE [address] [place] [address] Radha Jamison DO [address] [place] [address] 06/14/2024 10:00 AM EDT Medication Management [facility] [address] [place] [address] Nelia Sullivan, PharmD [address] [place] [address] 06/25/2024 9:45 AM EDT Office Visit [facility] [address] [place] [address] Radha Jamison DO [address] [place] [address] documented as of this encounter Goals Goal Patient Goal Type Associated Problems Recent Progress Patient-Stated? Author Record your blood pressure once per day Blood Pressure No Nelia Sullivan, PharmD Blood Pressure < 140/90 Blood Pressure 138/62(2024 10:52 AM EDT) No Yazmin Sullivansa, PharmD Smoking cessation General No Yazmin Sullivansa, [...] documented as of this encounter Care Teams Speech And Language Tutor Relationship Specialty Start Date End Date Radha Jamison DO [address] [place] [address] PCP - General Family Medicine 01/26/12 Nelia Sullivan, [place] [address] Pharmacist Internal Medicine 08/31/23 Laurel Monterroso Trust ClerkPit Shoveler 10/27/22 Saige Aguilar 09/26/23 documented as of this encounter
--- OUTSIDE RECORDS SUMMARY | 2024-05-18 20:33 | XMS_ITS | Encounter Summary ---
Author Organization [employer] Address 75 [facility] 7t [place] [address] Care Team Providers Care Market Research Assistant Name Role Phone Radha Jamison DO Primary Care Provider [phone]- [phone] Nelia Sullivan PharmD Unavailable [phone] Reason for Visit * Reason Comments Med Refill Encounter Details Date Type Department Care Team ([facility] Contact Info) Description 01/06/2024 Refill [facility] 230 [place], [place] [phone] Radha Jamison DO [address] [place] [address] Depression, unspecified depression type; Essential (primary) hypertension [...] the past 12 months, has t he [employer], gas, oil or water [employer] threatened to shut off services in your [...] Description 05/20/2024 11:45 AM EDT Office Visit [facility] [address] [place] [address] Radha Jamison DO [address] [place] [address] 06/14/2024 10:00 AM EDT Medication Management [facility] [address] [place] [address] Nelia Sullivan, PharmD [address] [place] [address] 06/25/2024 9:45 AM EDT Office Visit [address] [address] Radha Jamison, [address] [place] [address] documented as of this encounter Goals Goal [...] documented as of this encounter Care Teams Market Research Assistant Relationship Specialty Start Date End Date Radha Jamison DO [address] [place] [address] PCP - General Family Medicine 01/26/12 Nelia Sullivan PharmD [address] [place] [address] Pharmacist Internal Medicine 08/31/23 Laurel Monterroso Electronic DrafterGroup Practice Pediatrician 10/27/22 Saige Aguilar 09/26/23 documented as of this encounter
--- OUTSIDE RECORDS SUMMARY | 2024-05-18 20:33 | XMS_ITS | Encounter Summary ---
Author Organization [employer] Address 75 [facility] 7t [place] [address] Care Team Providers Care Milk Hauler Name Role Phone Radha Jamison DO Primary Care Provider [phone]- [phone] Nelia Sullivan PharmD Unavailable [phone] Reason for Visit * Reason Comments Med Refill Encounter Details Date Type Department Care Team ([facility] Contact Info) Description 12/28/2023 Refill [facility] MEDICINE 230 [place], [place] [phone] Radha Jamison DO [address] [place] [address] Chronic bilateral low back pain, unspecified whether [...] the past 12 months, has t he [email or web address], gas, oil or water [employer] threatened to shut off services in your [...] 11:45 AM EDT Office Visit [facility] MEDICINE [address] [place] [address] Radha Jamison DO [address] [place] [address] 06/14/2024 10:00 AM EDT Medication Management [facility]INE [address] [place] [address] Nelia Sullivan, PharmD [address] [place] [address] 06/25/2024 9:45 AM EDT Office Visit [address] [address] Radha Jamison, [address] [place] [address] documented as of this encounter Goals Goal [...] documented as of this encounter Care Teams Milk Hauler Relationship Specialty Start Date End Date Radha Jamison DO [address] [place] [address] PCP - General Family Medicine 01/26/12 Nelia Sullivan, PharmD [address] [place] [address] Pharmacist Internal Medicine 08/31/23 Laurel Monterroso Access Services LibrarianDirector Of Creative Services 10/27/22 Saige Aguilar 09/26/23 documented as of this encounter
--- OUTSIDE RECORDS SUMMARY | 2024-05-18 20:34 | XMS_ITS | Encounter Summary ---
Author Organization [employer] [facility] Address [address] [facility] 7t [place] [address] Care Team Providers Care Cafe Operator Name Role Phone Radha Jamison DO Primary Care Provider Abdias Murillo PharmD Unavailable Unavail able Nelia Sullivan PharmD Unavailable Reason for Visit * Reason Comments Med Refill Encounter Details Date Type Department Care Team ([facility] Contact Info) Description 11/10/2022 Refill [facility] [address] [place] [phone] Radha Jamison DO [address] [place], [place] [phone] Chronic gastroesophageal reflux disease Social History Tobacco [...] Department Care Team (Late Contact Info) Description 05/20/2024 11:45 AM EDT Office Visit [facility] [address] [place] [address] [phone] Radha Jamison DO [address] [facility] [place] [address] 06/14/2024 10:00 AM EDT Medication Management [facility] [place] [address] Nelia Sullivan PharmD [facility] [place], [place] 06/25/2024 9:45 AM EDT Office Visit [facility] [place] [address] Radha Jamison DO [address] [facility] [place] [address] documented as of this encounter Goals Goal [...] documented as of this encounter Care Teams Cafe Operator Relationship Specialty Start Date End Date Lisa Jamisonamerica [facility] [place] [address] PCP - General Family Medicine 01/26/12 Abdias Murillo, PharmD [address] [place] [address] Pharmacist Internal Medicine 03/21/22 08/30/23 Nelia Sullivan PharmD [facility] [place] [address] Pharmacist Internal Medicine 08/31/23 Laurel Monterroso Supervisor Transcribing OperatorsHatchery Manager 10/27/22 Saige Aguilar 09/26/23 documented as of this encounter
--- OUTSIDE RECORDS SUMMARY | 2024-05-18 20:34 | XMS_ITS | Encounter Summary ---
Author Organization [employer] Address [address] [facility] 7t [place] [address] Care Team Providers Care Line Installation Supervisor Name Role Phone Radha Jamison DO Primary Care Provider [phone] Abdias Murillo PharmD Unavailable Unavail able Nelia Sullivan PharmD Unavailable [phone] Reason for Visit * Reason Comments Med Refill Encounter Details Date Type Department Care Team (Late st Contact Info) Description 08/30/2023 Refill [facility] [address] [place] [address] Radha Jamison DO [address] [place] [address] Chronic bilateral low back pain, unspecified whether [...] Description 05/20/2024 11:45 AM EDT Office Visit [address] [address] Radha Jamison DO [address] [place] [address] 06/14/2024 10:00 AM EDT Medication Management [address] [address] Nelia Sullivan PharmD [address] [place] [address] 06/25/2024 9:45 AM EDT Office Visit [address] [address] Radha Jamison DO [address] [place] [address] documented as of this encounter Goals Goal [...] Component 10.6(03/05/19 12:27 PM EST) No Abdias Murillo, Camron Record your blood sugar as directed Result [...] documented as of this encounter Care Teams Line Installation Supervisor Relationship Specialty Start Date End Date Radha Jamison DO [address] [place] [address] PCP - General Family Medicine 01/26/12 Abdias Murillo, PharmD [address] [place] [address] Pharmacist Internal Medicine 03/21/22 08/30/23 Nelia Sullivan PharmD [address] [place] [address] Pharmacist Internal Medicine 08/31/23 Laurel Monterroso Deck MechanicArmored Car Driver 10/27/22 Saige Aguilar 09/26/23 documented as of this encounter
--- OUTSIDE RECORDS SUMMARY | 2024-05-18 20:34 | XMS_ITS | Encounter Summary ---
Author Organization [email or web address] Address [address] [facility] 7t [place] [address] Care Team Providers Care Assembly Loader Name Role Phone Radha Jamison DO Primary Care Provider [phone] Abdias Murillo PharmD Unavailable Unavail able Nelia Sullivan PharmD Unavailable Reason for Visit * Reason Onset Date Comments Med Refill 10/24/2022 Encounter Details Date Type Department Care Team (Late st Contact Info) Description 10/24/2022 Telephone [facility] [address] [place] [address] Radha Jamison DO [address] [place] [address] Med Refill Social History Tobacco Use Types [...] Description 05/20/2024 11:45 AM EDT Office Visit [address] [address] Radha Jamison DO [address] [place] [address] 06/14/2024 10:00 AM EDT Medication Management [address] [address] Nelia Sullivan PharmD [address] [place] [address] 06/25/2024 9:45 AM EDT Office Visit [address] [address] Radha Jamison DO [address] [place] [address] documented as of this encounter Goals Goal Patient Goal Type Associated Problems Recent Progress Patient-Stated? Author Hemoglobin A1c < 7 Result Component 10.6( 5 12:27 PM EST) No Abdias Murillo, PharmD documented as of this encounter Visit Diagnoses Not on filedocumented in this encounter Additional Health Concerns Assessment Noted Time PHQ-9 Depression Total Score: 14 03/18/ 023 12:00 PM EST documented as of this encounter Care Teams Assembly Loader Relationship Specialty Start Date End Date Radha Jamison DO [address] [place] [address] PCP - General Family Medicine 01/26/12 Abdias Murillo, KeithD [address] [place] [address] Pharmacist Internal Medicine 03/21/22 08/30/23 Nelia Sullivan, KeithD [address] [place], [place] [phone] Pharmacist Internal Medicine 08/31/23 Laurel Monterroso Online Community ManagerCut Off Saw Grader 10/27/22 Saige Aguilar 09/26/23 documented as of this encounter
--- OUTSIDE RECORDS SUMMARY | 2024-05-18 20:34 | XMS_ITS | Encounter Summary ---
Author Organization [employer] Address [address] [facility] 7t [place] [address] Care Team Providers Care Pourer Crane Ladle Name Role Phone Radha Jamison DO Primary Care Provider [phone]- [phone] Abdias Murillo PharmD Unavailable Unavail able Nelia Sullivan PharmD Unavailable [phone] Reason for Visit * Reason Onset Date Comments Appointment Request 03/09/2023 Encounter Details Date Type Department Care Team ([facility] st Contact Info) Description 03/09/2023 Telephone [facility] [address] [place], [place] [phone] Radha Jamison DO [address] [place] [address] Appointment Request Social History Tobacco Use Types [...] denied any concerns. Please contact pt at [phone] documented in this encounter Plan of Treatment Upcoming Encounters Date Type Department Care Team (Late st Contact Info) Description 05/20/2024 11:45 AM EDT Office Visit [facility] [address] [place] [address] Radha Jamison, [address] [place] [address] 06/14/2024 10:00 AM EDT Medication Management [address] [address] Nelia Sullivan, PharmD [address] [place] [address] 06/25/2024 9:45 AM EDT Office Visit [address] [address] Radha Jamison, [address] [place] [address] documented as of this encounter Goals Goal [...] documented as of this encounter Care Teams Pourer Crane Ladle Relationship Specialty Start Date End Date Radha Jamison DO [address] [place] [address] PCP - General Family Medicine 01/26/12 Abdias Murillo, PharmD [address] [place] [address] Pharmacist Internal Medicine 03/21/22 08/30/23 Nelia Sullivan PharmD [address] [place] [address] Pharmacist Internal Medicine 08/31/23 Laurel Monterroso Order ClerkContract Runner 10/27/22 Saige Aguilar 09/26/23 documented as of this encounter
--- OUTSIDE RECORDS SUMMARY | 2024-05-18 20:34 | XMS_ITS | Clinical Summary ---
Demographics Address [address] [facility] [address] [place] [address] Mobile Phone Home Phone Preferred Language es Marital Status Unknown Scientologist Affiliation Unknown Race White Ethnic Group or Author Organization [employer] Address [address] [facility] [address] [place] [address] Care Team Providers Care Money Room Supervisor Name Role Phone ShaheenRadha Primary Care Provider Nelia Sullivan PharmD Unavailable [phone] Allergies Active Allergy Reactions Criticality Noted Date Comments Furosemide Rash Low 02/01/2024 Latex Rash High 07/26/2023 Naproxen Hives,Palpitations High 07/26/2023 Medications * This document contains information received from the source organization and may not represent a complete record from that organization. clopidogrel (Plavix) 75 MG tablet Take 1 tablet by mouth at bed time. Active acetaminophen (Tylenol 8 Hour) 650 MG ER tablet Take 1 tablet (650 mg) by mouth every 8 (eight) hours. 60 tablet 2 Active hydrOXYzine pamoate (Vistaril) 25 MG capsuleIndications :Mood disorder (CMS/HCC) Take 1 capsule (25 mg) by mouth every 6 (six) hours if needed for anxiety. 60 capsule 2 Active Additional Information Patient not taking.Reported on 03/06/2024 Diclofenac Sodium 1 % gel Apply 2 g topically if needed in the morning, at noon, in the evening, and at bedtime (pain). 150 g 2 Active Additional Information Patient not taking.Reported on 04/05/2024 Blood Pressure Monitoring (Omron 3 Series BP Monitor) deviceIndications: Essential hypertension Use as directed to check BP once daily 1 each Active pen needle 32G x 4 mm misc Use 1 daily for insulin injection 100 each 3 024 2024 Active gabapentin (Neurontin) 600 MG tablet Take 1 tablet (600 mg) by mouth 2 times daily. Do not start before October 05, 2023. 60 tablet 11 024 2024 Active NIFEdipine XL (Procardia XL) 90 MG [...] hyperglycemia, with long-term current use of insulin ([facility]) TAKE 1 TABLET BY MOUTH EVERY MORNING [...] Once per day. 90 tablet 3 024 2024 Active fluticasone (Flonase) 50 MCG/ACT nasal spray [...] needed for chest pain. 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 15 mL 2 Active ezetimibe (Zetia) 10 MG tablet Take 1 tablet (10 mg) by mouth Once per day. 90 tablet 1 Active atorvastatin (Lipitor) 80 MG tabletIndications: Hyperlipidemia, unspecified hyperlipidemia type Take 1 tablet (80 mg) by mouth at bedtime. 90 tablet 1 024 Active ferrous sulfate (FeroSul) 325 (65 Fe) [...] day. 90 tablet 1 Active Continuous Glucose Inspector Assembly (FreeStyle Jenn 3 Carmel) device 1 each 3 times daily. Use daily as directed for CGM 1 each Active Continuous Glucose Sensor (FreeStyle Jenn 3 Plus Sensor) [facility] 1 each Once per day. Apply 1 sensor as directed every 15 days for CGM 2 each Active varenicline (Chantix) 1 MG tablet Take 1 tablet (1 mg) by mouth 2 times daily. Take with full glass of water. 60 tablet 5 Active glucose blood (FreeStyle Precision Julian Test) test strip Use to test blood sugar 3 times daily 100 each 025 2025 Active TRUEplus Lancets 33G [facility] TEST BLOOD SUGAR UP TO THREE TIMES DAILY DIRECTED 100 each Active amitriptyline (Elavil) 50 MG tabletIndications: Other chronic pain TAKE 1 TABLET BY MOUTH AT BEDTIME 30 tablet 3 Active mirtazapine (Remeron) 45 MG tabletIndications: Mood disorder (CMS/HCC) TAKE 1 TABLET BY MOUTH AT BEDTIME 30 tablet 3 Active aspirin (Aspirin Low Dose) 81 MG EC tabletIndications: Hypertension, unspecified type TAKE 1 TABLET BY MOUTH EVERY EVENING 90 tablet Active Multiple Vitamin (Multivitamin) tabletIndications: Hypertension, unspecified type TAKE 1 TABLET BY MOUTH EVERY MORNING WITH FOOD 90 tablet Active empagliflozin-metF ORMIN (Synjardy) 12.5-1000 MG Take 1 tablet by mouth with breakfast and with evening meal. 60 tablet 025 2025 Active Asmanex HFA 100 MCG/ACT aerosol INHALE 2 PUFFS BY MOUTH TWICE DAILY RINSE MOUTH AFTER USING. 13 g Active naloxone (Narcan) 4 mg/0.1 mL nasal sprayIndications:C hronic bilateral low back pain, unspecified whether sciatica present FOR SUSPECTED OPIOID OVERDOSE. SPRAY 0.1mL IN ONE NOSTRIL. REPEAT IN ALTERNATE NOSTRIL 2-3 MINUTES IF NEEDED. SEEK MEDICAL ATTENTION IMMEDIATELY EVEN IF PATIENT RESPONDS. 2 each 3 Active omeprazole (PriLOSEC) [address] capsule TAKE 2 CAPSULES BY MOUTH TWICE DAILY IN THE MORNING AND EVENING WITH FOOD 360 capsule 025 Active Semaglutide,0.25 or 0.5MG/DOS, (Ozempic, 0.25 or 0.5 MG/DOSE,) 2 MG/3ML solution pen-injector Inject 0.5 mg under the skin 1 (one) time per week for 28 days. 3 mL 025 2024 Active naloxone (Narcan) 4 mg/0.1 mL nasal sprayIndications:C hronic bilateral low back pain, unspecified whether sciatica present Administer 1 spray (4 mg) into affected nostril(s) if needed for opioid reversal. May repeat every 2-3 minutes if needed, alternating nostrils, until medical assistance becomes available. 2 each 3 023 2024 Discontinued omeprazole (PriLOSEC) [address] capsule TAKE 2 CAPSULES BY MOUTH TWICE DAILY IN THE MORNING AND EVENING WITH FOOD 024 2024 Discontinued Semaglutide,0.25 or 0.5MG/DOS, (Ozempic, 0.25 or 0.5 MG/DOSE,) 2 MG/3ML solution pen-injector Inject 0.25 mg under the skin 1 (one) time per week for 28 days, THEN 0.5 mg 1 (one) time per week for 28 days. 3 mL 1 025 2024 Discontinued(R eorder (will not trigger notification to Pharmacy)) oxyCODONE (Roxicodone) 5 MG immediate release tabletIndications: Chronic bilateral low back pain, unspecified whether sciatica present Take 1 tablet (5 mg) by mouth every 12 (twelve) hours if needed for severe pain for up to 7 days. Do not start before April 19, 2024. 14 tablet 025 2024 Discontinued(R eorder (will not trigger notification to Pharmacy)) oxyCODONE (Roxicodone) 5 MG immediate release tabletIndications: Chronic bilateral low back pain, unspecified whether sciatica present Take 1 tablet (5 mg) by mouth if needed each day for severe pain for up to 7 days. 7 tablet 025 2024 Discontinued(R eorder (will not trigger notification to Pharmacy)) oxyCODONE (Roxicodone) 5 MG immediate release tabletIndications: Chronic bilateral low back pain, unspecified whether sciatica present Take 1 tablet (5 mg) by mouth every other day if needed for severe pain for up to 7 days. 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 05/04/2020 03/18/2022 Encounters Date Type Department Care Team Description 05/17/2024 Refill [facility] [address] [place] [address] Radha Jamison, DO Chronic bilateral low back pain, unspecified whether sciatica present 05/17/2024 Refill [facility] [address] [place] [address] Radha Jamison, DO Chronic bilateral low back pain, unspecified whether sciatica present 05/16/2024 Refill [facility] [address] [place] [address] Radha Jamison, Chronic bilateral low back pain, unspecified whether sciatica present 05/10/2024 Telephone [facility] [address] [place] [address] Ginna Stephen, RN Appointment Request 05/09/2024 Travel 05/08/2024 Telephone [facility] [address] [place] [address] Radha Jamison, DO Medication Question 05/07/2024 Telephone [facility] [address] [facility] [place] [address] Radha Jamison, DO Med Refill 05/07/2024 Refill [facility] MEDIC[facility] [address] [facility] [place] [address] Radha Jamison, DO 05/06/2024 Refill [facility] [address] [facility] [place] [address] Radha Jamison, Chronic bilateral low back pain, unspecified whether sciatica present 04/30/2024 Refill [facility] MEDICINE [address] [facility] [place] [address] Radha Jamison, Chronic bilateral low back pain, unspecified whether sciatica present 04/29/2024 Refill [facility] [address] [facility] [place] [address] Radha Jamison DO 04/26/2024 Population Health Risk Score [facility] ([facility] Department [address] [place] [phone] Provider, Population Health Generic 04/23/2024 Telephone [facility] [address] [facility] [place] [address] Radha Jamison DO FYI 04/19/2024 Refill [facility] [address] [facility] [place] [address] Radha Jamison DO Chronic bilateral low back pain, unspecified whether sciatica present 04/17/2024 9:30 AM EST Clinical Support [facility] [place] [address] Acacia Chakraborty RN Chronic bilateral low back pain, unspecified whether sciatica present (Primary Dx) 04/17/2024 Telephone [facility] [address] [facility] [place] [address] Acacia Chakraborty RN Needs PT1 04/17/2024 Travel 04/10/2024 Refill [facility] [address] [place] [address] aRdha Jamison DO Chronic bilateral low back pain, unspecified whether sciatica present 04/05/2024 Refill [facility] [address] [place] [address] Radha Jamison DO 04/05/2024 Telephone [facility] [address] [facility] [place] [address] Nelia Sullivan, Camron Prior Authorization (Ozempic ) 04/04/2024 Orders Only GENERIC EXTERNAL DATA DEPARTMENT Provider, Generic External Data 04/03/2024 10:30 AM EST Clinical Support [facility] [address] [facility] [place] [address] Acacia Chakraborty RN Chronic bilateral low back pain, unspecified whether sciatica present (Primary Dx) 04/03/2024 Refill [facility] [address] [facility] [place] [address] Radha Jamison DO Hypertension, unspecified type 04/03/2024 Refill [facility] [address] [facility] [place] [address] Acacia Chakraborty, potato grader bilateral low back pain, unspecified whether sciatica present 04/03/2024 Travel 04/03/2024 Refill [facility] [address] [facility] [place] [address] Nelia Sullivan, Camron 03/26/2024 Refill [facility] [address] [place] [address] Paramjit Arias MD Chronic bilateral low back pain, unspecified whether sciatica present 03/26/2024 Telephone [facility] [address] [facility] [place] [address] Radha Jamison DO Medication Question 03/26/2024 Refill [facility] [address] [facility] [place] [address] Radha Jamison DO Chronic bilateral low back pain, unspecified whether sciatica present 03/21/2024 Refill [facility] [address] [facility] [place] [address] Radha Jamison DO Other chronic pain; Mood disorder ([facility]) 03/19/2024 10:00 AM EST Office Visit [facility] [address] [facility] [place] [address] Anna Jenkins MD Left lower quadrant abdominal pain (Primary Dx) 03/19/2024 9:00 AM EST Clinical Support [facility] [address] [facility] [place] [address] Acacia Chakraborty, potato grader bilateral low back pain, unspecified whether sciatica present (Primary Dx) 03/19/2024 Telephone [facility] [address] [facility] [place] [address] Radha Jamison DO [facility] ED expect 03/19/2024 Refill [facility] [address] [facility] [place] [address] Radha Jamison DO Chronic bilateral low back pain, unspecified whether sciatica present 03/19/2024 Refill [facility] [address] [place] [address] Acacia Chakraborty RN Chronic bilateral low back pain, unspecified whether sciatica present 03/19/2024 Travel 03/08/2024 Telephone [facility] [address] [place] [address] Nelia Sullivan PharmD Prior Authorization (Jenn 3 reader) 03/06/2024 Refill [facility] [address] [place] [address] Radha Jamison DO Chronic bilateral low back pain, unspecified whether sciatica present 03/06/2024 Telephone [facility] [address] [place] [address] Nelia Sullivan PharmD Prior Authorization (Jenn 3 [facility] ([facility])) 03/06/2024 Telephone [facility] [place] [address] Radha Jamison, DO Med Refill 03/05/2024 10:00 AM EST Clinical Support [facility] [place] [address] Acacia Chakraborty RN Spinal stenosis of lumbar region, unspecified whether neurogenic claudication present (Primary Dx) 03/05/2024 Telephone [facility] [place] [address] Radha Jamison, DO Med Refill 03/05/2024 Telephone [facility] [facility] [place] [address] Acacia Chakraborty RN Oxy count discrepancy 03/05/2024 Travel 02/29/2024 Refill [facility] [address] [facility] [place] [address] Radha Jamison DO Chronic bilateral low back pain, unspecified whether sciatica present 02/29/2024 Telephone [facility] [place] [address] Radha Jamison DO Lab Orders 02/27/2024 Telephone [facility] [address] [facility] [place] [address] Radha Jamison, DO Med Refill 02/26/[address] [address] Radha Jamison DO ER Follow-up 02/23/2024 Refill [facility] [address] [facility] [place] [address] Radha Jamison DO Hypertension, unspecified type 02/23/[address] [address] Radha Jamison DO Nurse Triage 02/21/[address] [address] Radha Jamison DO Appointment Request 02/20/2024 9:00 AM EST Clinical Support [address] [address] Acacia Chakraborty RN Spinal stenosis of lumbar region, unspecified whether neurogenic claudication present (Primary Dx) 02/20/[address] [address] Acacia Chakraborty RN Random TEST EVALUATOR visit 02/20/2024 Travel from Last 3 Months Immunizations Name Administration [...] Sign Reading Time Taken Comments Blood Pressure 138/62 05/09/2024 10:52 AM EDT Pulse 77 03/19/2024 9:57 AM EST Temperature [...] Description 05/20/2024 11:45 AM EDT Office Visit [address] [address] Radha Jamison, [address] [place] [address] 06/14/2024 10:00 AM EDT Medication Management [address] [address] Nelia Sullivan, PharmD [address] [place] [address] 06/25/2024 9:45 AM EDT Office Visit [address] [address] Radha Jamison, [address] [place] [address] Health Maintenance Due Date Last Done Comments CT Colonography 1961 Colonoscopy 1961 Colorectal Cancer Screening 1961 Dental Oral Exam 1961 Dental Prophylaxis 1961 Dental X-Ray: Bitewings 1961 FIT DNA/Cologuard 1961 FIT 1961 FOBT 1961 Sigmoidoscopy 1961 Diabetes: Foot Exam 12/16/1971 Eye Exam 12/16/1971 DTaP/Tdap/Td Vaccines (1 - Tdap) 1980 Pap Smear 1982 Cervical Cancer Screening [...] patient's age to complete this topic Hepatitis A Vaccines Aged Out No long er eligible [...] PharmAdrian Blood Pressure < 140/90 Blood Pressure 138/62(2024 10:52 AM EDT) No Nelia Sullivan PharmD Smoking cessation General [...] Comments POCT GUERO-14 URINE DRUG SCREEN Routine 04/17/2024 9:32 AM EST Chronic bilateral low back pain, unspecified whether sciatica present VITAMIN B12 Routine 04/04/2024 10:55 AM EST BASIC METABOLIC PANEL Routine 04/04/2024 10:55 AM EST POCT GUERO-14 URINE DRUG SCREEN Routine 04/03/2024 [...] insulin, macular edema presence unspecified, unspecified laterality ([facility]) POCT GUERO-14 URINE DRUG SCREEN Routine 03/05/2024 10:32 AM EST Spinal stenosis of lumbar region, unspecified whether neurogenic claudication present POCT GUERO-14 URINE DRUG SCREEN Routine 02/20/2024 9:12 AM EST Spinal stenosis of lumbar region, unspecified whether neurogenic claudication present LIPID PANEL, STANDARD Routine 05/15/2023 8:21 AM [...] Results * POCT GUERO-14 Urine Drug Screen (04/17/2024 9:32 AM EST) Only the most recent of5 resultswithin the time period is included. Oxycodone Screen, Urine Positive Urine Urine specimen obtained by clean catch procedure / Unknown 04/17/2024 9:32 AM EST Acacia Perera RN - 04/17/2024 9:32 AM EST UTOX cup Lot#[id number] Exp. 10/02/25 Internal Pass Control Radha Jamison DO POINT OF CARE TEST ENTER/BHARGAVI T ORDERABLES Final Result * Vitamin B12 (04/04/2024 10:55 AM EST) Vitamin B12 387 200 - 900 pg/mL [facility] Comment:NORMAL 200-900 PG/ML INDETERMINATE 160-199 PG/ML DEFICIENT < 160 PG/ML 04/04/2024 10:5 5 AM EST 04/04/2024 1:12 PM EST us Radha Jamison DO LAB BLOOD ORDERABLES Final R esult Performing Organization Address [facility] Co de Phone Number [facility] [address] [place] [address] [phone] * (ABNORMAL) Basic Metabolic Panel (04/04/2024 10:55 AM EST) Sodium 140 135 - 145 mmol/L [facility] Potassium 4.4 3.3 - 5.1 mmol/L [facility] Chloride 107 96 - 108 mmol/L [facility] Carbon Dioxide 27 22 - 29 mmol/L [facility] Anion Gap 10(L) 12 - 20 [facility] Urea Nitrogen (BUN) 22(H) 9 - 16 mg/dL [facility] Creatinine, Serum 0.88 0.5 - 1.4 mg/dL [facility] Estimated Glomerular Filt Rate >60 [facility] Comment:Chronic Kidney Disea se: Estimated GFR < 60 mL/min/1.58t8Gxngns Kidney Disease: Estimated GFR < 15 mL/min/1.73m2 Glucose 213(H) 60 - 115 mg/dL [facility] Calcium 9.0 8.4 - 10.2 mg/dL [facility] 04/04/2024 10:5 5 AM EST 04/04/2024 1:12 PM EST us Generic External Data Provider LAB BLOOD ORDERAB LES Final Result Performing Organization Address [facility] Co de Phone Number [facility] [address] [place] [phone] [phone] * (ABNORMAL) POCT HGB A1C (03/05/2024 12:27 PM EST) Hemoglobin A1C 10.6(A) 4.0 - 6.0 % Blood 03/05/2024 12:2 7 PM EST Radha Jamison DO POINT OF CARE TEST ENTER/BHARGAVI T ORDERABLES Final Result * (ABNORMAL) Lipid Panel, Standard (05/15/2023 8:21 AM EDT) Triglycerides 136 <150 mg/dL [facility] Comment:Desirable Triglyceri de: less than 150 mg/dLBorderline High Triglyceride 150-199 mg/dLHigh Triglyceride: 200-499 mg/dLVery High Triglyceride: greater than or equal to 5OO mg/dL Cholesterol 240(H) <200 mg/dL [facility] Comment:Desirable Cholestero l: less than 200 mg/dLBorderline High Cholesterol: 200-239 mg/dLHigh Cholesterol: greater than 239 mg/dL LDL Cholesterol Calculated 165(H) <100 mg/dL [facility] Comment:Desirable LDL: less than 100 mg/dLNear Optimal/Above Optimal LDL: 110- 129 mg/dLBorderline High LDL: 130-159 mg/dLHigh LDL: 160-189 mg/dLVery High LDL: greater than or equal to 190 mg/dL HDL Cholesterol 48 >40 mg/dL [facility] Comment:Desirable HDL: great er than 40 mg/dL Note: This HDL assay may give artificially low results in patients with liver disease. Blood Venous blood specimen / Unknown 05/15/2023 8:21 AM EDT 05/15/2023 8:21 AM EDT Radha Jamison DO LAB BLOOD ORDERABLES Final R esult [facility] [address] [place], [place] [phone] * (ABNORMAL) Albumin, Random Urine W/Creatinine (05/15/2023 8:20 AM EDT) Creatinine, Urine 105.69 mg/dL [facility] Microalbumin Urine 1,418.0 mg/L [facility] Microalbum Creatinine Ratio Ur 1,341.6(H ) <30 ug/mg cr [facility] Comment:Albumin/Creatinine R atio Reference Ranges: Normal: < 30 ug/mg creatinine Microalbuminuria: 30 - 300 ug/mg creatinineClinical Albuminuria: > 300 ug/mg creatinine Urine (Urine, Random) 05/15/2023 8:20 AM EDT 05/15/2023 8:31 AM EDT Radha Shaheen DO LAB URINE ORDERABLES Final R esult Performing Organization Address City/[facility]/ZIP Co de Phone Number [facility] [address] [place] [address] [phone] * Hepatitis C Antibody with Reflex to HCV RNA,PCR w/Reflex to Genotype, LiPA (08/08/2022 10:44 AM EDT) Pathologist [facility] Hepatitis C Antibody NON-REACT ROMERO NON-REACT ROMERO Phase III Development [place] [employer] Comment: HCV antibody was non-reactive. There is no laboratory evidence of HCV infection. In most cases, no further action is required. However, if recent HCV exposure is suspected, a test for HCV RNA (test code 07136) is suggested. For additional information, please refer to http://education.MUJIN/faq/DFP083 (This link is being provided for informational/ educational purposes only.) 08/08/2022 10:4 4 AM EDT 08/08/2022 10:45 AM EDT Narrative [facility] - 08/09/2022 7:27 PM EDT FASTING:YES COLLECTION KIT GIVEN TO PATIENT. PATIENT ADVISED TO RETURN. FASTING: YES Radha Shaheen DO LAB BLOOD ORDERABLES Final R esult Performing Organization Address City/[facility]/ZIP Co de Phone Number [facility] [address] [place] [address] Phase III Development [place] [employer] [address] [place] [phone] * HIV-1/2 Antigen and Antibodies, Fourth Generation, with Reflexes (08/08/2022 10:44 AM EDT) HIV Antigen/Antibody, 4th Generation NON-REAC TIVE NON-REAC TIVE Phase III Development [place] [employer] Comment: HIV-1 antigen and HIV-1/HIV-2 antibodies [...] ?? For additional information please refer to http://education.BabbaCo (acquired by [employer] in 2014)/faq/AJK397 (This link is being provided for informational/ [...] BLOOD ORDERABLES Final R esult [facility] [address], [place] [address] Phase III Development [facility] [address] [place] [address] * Mammography Report 1 (10/06/2021 1:35 PM [...] [address] [place] [address] [facility] C3 * Guarantor: Rocío Hallman Account Type Relation to Patient Date of Phone Billing Address Dental Self [address] [place] [address] [facility] MEDICAID STAND ADULT * Guarantor: Rocío Hallman Account Type Relation to Patient Date of Phone Billing Address Personal/Family Self [address] [place] [address] Care Teams Money Room Supervisor Relationship Specialty Start Date End Date Radha Jamison DO [address] [place], [place] [phone] PCP - General Family Medicine 01/26/12 Nelia Sullivan, Camron [address] [place], [place] [phone] Pharmacist Internal Medicine 08/31/23 Laurel Monterroso Consumer Insight ManagerMechatronics Engineer 10/27/22 Saige Aguilar 09/26/23
--- OUTSIDE RECORDS SUMMARY | 2024-05-18 20:34 | XMS_ITS | Clinical Summary ---
Author Organization Unknown Care Team Providers Care Director Imaging Name Role Phone ADILIA FELIPE, VIOLETA Unavailable Unavailable SURJIT DAVID, ERIC Unavailable Unavailable Payers Payer Name Policy Type Policy Number Effective Date Expira tion Date MEDICAID [facility] [id number] Problems Condition Name Condition Details Condition Category Status Onset Date Resolution Date Last Treatment Date Treating Clinician Comments ESSENTIAL (PRIMARY) HYPERTENSION Active 09-21 00:00: 00 ATHSCL HEART DISEASE OF [place] CORONARY ARTERY W/O ANG PCTRS Active 09-21 [...] CIGARETTES, UNCOMPLICATE D Active 09-21 00:00: 00 INVESTIGATIONS CONSULTANT (CURRENT) USE OF INSULIN Active 09-21 00:00: 00 INVESTIGATIONS CONSULTANT (CURRENT) USE OF ANTITHROMBOT ICS/ANTIPLAT ELETS Active [...] release 24 hr 8-05 00:00: 00 Yes [id number] 60 mg AT BEDTIME 60 mg AT BEDTIME (route: oral) Med Classific ation: Cardiovas cular Therapy Agents oxycodone 5 mg tablet 09-04 00:00: 00 11-19 23:59 :00 No [id number] Unavailable 5 mg FIVE TIMES DAILY NEEDED 5 mg FIVE TIMES DAILY NEEDED (route: oral) Med Classific ation: Analgesic , Anti-infl ammatory or Antipyret ic gabapentin 600 mg tablet 09-03 00:00: 00 09-25 23:59 :00 No [id number] 600 mg 2 TIMES DAILY 600 mg 2 TIMES DAILY (route: oral) Med Classific ation: Central Nervous System Agents nicotine 21 mg/24 hr daily transdermal patch 08-30 00:00: 00 Yes [id number] Unavailable 21 mg DAILY 21 mg DAILY (route: transderma l) Med Classific ation: Chemical Dependenc y, Agents to Treat Alcohol Prep Pads 08-29 00:00: 00 Yes [id number] 1 pads, medicat ed DIRECTED THREE TIMES DAILY AND NEEDED 1 pads, medicated DIRECTED THREE TIMES DAILY AND NEEDED (route: topical) Med Classific ation: Antisepti cs and Disinfect ants amitriptyli ne 50 mg tablet 08-29 00:00: 00 Yes [id number] Unavailable 50 mg AT BEDTIME 50 mg AT BEDTIME (route: oral) Med Classific ation: Central Nervous System Agents Asmanex HFA 100 mcg/actuati on aerosol inhaler 08-29 00:00: 00 Yes [id number] 2 puff TWICE DAILY 2 puff TWICE DAILY (route: inhalation ) Med Classific ation: Respirato ry Therapy Agents atorvastati n 80 mg tablet 08-29 00:00: 00 Yes [id number] Unavailable 80 mg BEDTIME 80 mg BEDTIME (route: oral) Med Classific ation: Cardiovas cular Therapy Agents carvedilol 25 mg tablet 08-29 00:00: 00 Yes [id number] Unavailable 25 mg TWICE DAILY 25 mg TWICE DAILY (route: oral) Med Classific ation: Cardiovas cular Therapy Agents clopidogrel 75 mg tablet 08-29 00:00: 00 Yes [id number] 75 mg EVERY AM 75 mg EVERY AM (route: oral) Med Classific ation: Hematolog ical Agents docusate sodium 100 mg capsule 08-29 00:00: 00 09-25 23:59 :00 No [id number] Unavailable 100 mg TWICE DAILY 100 mg TWICE DAILY (route: oral) Med Classific ation: Gastroint estinal Therapy Agents escitalopra m 20 mg tablet 08-29 00:00: 00 Yes [id number] Unavailable 20 mg EVERY PM 20 mg EVERY PM (route: oral) Med Classific ation: Central Nervous System Agents FeroSul 325 mg (65 mg iron) tablet 08-29 00:00: 00 09-25 23:59 :00 No [id number] Unavailable 325 mg TWICE DAILY IN THE MORNING AND AT BEDTIME 325 mg TWICE DAILY IN THE MORNING AND AT BEDTIME (route: oral) Med Classific ation: Electroly te Balance-N utritiona l Products gabapentin 800 mg tablet 08-29 00:00: 00 Yes [id number] 800 mg 2 TIMES DAILY 800 mg 2 TIMES DAILY (route: oral) Med Classific ation: Central Nervous System Agents hydralazine 25 mg tablet 08-29 00:00: 00 Yes [id number] Unavailable 25 mg 3 TIMES DAILY 25 mg 3 TIMES DAILY (route: oral) Med Classific ation: Cardiovas cular Therapy Agents hydralazine 50 mg tablet 08-29 00:00: 00 09-25 23:59 :00 No [id number] Unavailable 50 mg THREE TIMES DAILY IN THE MORNING AT 50 mg THREE TIMES DAILY IN THE MORNING AT (route: oral) Med Classific ation: Cardiovas cular Therapy Agents mirtazapine 45 mg tablet 08-29 00:00: 00 Yes [id number] Unavailable 45 mg AT BEDTIME 45 mg AT BEDTIME (route: oral) Med Classific ation: Central Nervous System Agents omeprazole 20 mg capsule,del ayed release 08-29 00:00: 00 Yes [id number] 20 mg TWICE DAILY 20 mg TWICE DAILY (route: oral) Med Classific ation: Gastroint estinal Therapy Agents lisinopril 40 mg tablet 09-25 00:00: 00 Yes [id number] 40 mg DAILY 40 mg DAILY (route: oral) Med Classific ation: Cardiovas cular Therapy Agents metformin 1,000 mg tablet 09-25 00:00: 00 Yes [id number] 1000 mg 2 TIMES DAILY 1000 mg 2 TIMES DAILY (route: oral) Med Classific ation: Endocrine multivitami n tablet 09-25 00:00: 00 Yes [id number] 1 tablet DAILY 1 tablet DAILY (route: oral) Med Classific ation: Electroly te Balance-N utritiona l Products nifedipine ER 60 mg tablet,exte nded release 09-25 00:00: 00 Yes [id number] 60 mg EVERY PM 60 mg EVERY PM (route: oral) Med Classific ation: Cardiovas cular Therapy Agents pioglitazon e 15 mg tablet 09-25 00:00: 00 Yes [id number] 15 mg DAILY 15 mg DAILY (route: oral) Med Classific ation: Endocrine Tresiba FlexTouch U-100 insulin 100 unit/mL (3 mL) subcutane s pen 09-25 00:00: 00 Yes [id number] 10 In unit DAILY 10 In unit [...] AWARENESS FOR SAFETY AND WILL NOTIFY CLINICAL PASSENGER CAR CONDUCTOR AND PHYSICIAN/PROVIDER WITH ANY CHANGE IN CONDITION. [code = SKILLED NURSE WILL MAINTAIN SITUATIONAL AWARENESS FOR SAFETY AND WILL NOTIFY CLINICAL PASSENGER CAR CONDUCTOR AND PHYSICIAN/PROVIDER WITH ANY CHANGE IN CONDITION.] [...] MEDICATIONS DAILY AND PRE-POUR MEDICATIONS TILL NEXT GROUP HOME VISIT PER MEDICATION LIST. [code = SKILLED NURSE TO ADMINISTER MEDICATIONS DAILY AND PRE-POUR MEDICATIONS TILL NEXT GROUP HOME VISIT PER MEDICATION LIST.] Future Scheduled Test [...] CARE WILL BE ESTABLISHED THAT MEETS PATIENT'S GROUP HOME NEEDS AND INCLUDES PATIENT GOAL FOR HOME [...] Date/Time Encounter Type Admission Type Attending [facility] Care Department Encounter ID Discharge Date Discharge Status Discharge Condition Discharge Reason Percent Goals Met 2023-09-26 00:00:00 2024-05-22 00:00:00 Outpatient [facility]ERT[facility] [id number]
--- OUTSIDE RECORDS SUMMARY | 2024-05-18 20:34 | XMS_ITS | Encounter Summary ---
Author Organization [employer] Address [address] [facility] 7t [place] [address] Care Team Providers Care Carpenter Mate Name Role Phone Radha Jamison DO Primary Care Provider Abdias Murillo PharmD Unavailable Unavail able Nelia Sullivan PharmD Unavailable Reason for Visit * Reason Onset Date Comments Durable Medical Equipment 09/08/2022 Encounter Details Date Type Department Care Team (Late st Contact Info) Description 09/08/2022 Telephone [facility] [address] [place] [address] Radha Jamison DO [address] [place] [address] Durable Medical Equipment Social History Tobacco Use [...] is not working. Please contact pt at [phone] documented in this encounter Plan of Treatment Upcoming Encounters Date Type Department Care Team (Late st Contact Info) Description 05/20/2024 11:45 AM EDT Office Visit [address] [address] Radha Jamison DO [address] [place] [address] 06/14/2024 10:00 AM EDT Medication Management [address] [address] Nelia Sullivan PharmD [address] [place] [address] 06/25/2024 9:45 AM EDT Office Visit [address] [address] Radha Jamison DO [address] [place] [address] documented as of this encounter Goals Goal [...] documented as of this encounter Care Teams Carpenter Mate Relationship Specialty Start Date End Date Radha Jamison DO [address] [place] [address] PCP - General Family Medicine 01/26/12 Abdias Murillo, PharmD [address] [place] [address] Pharmacist Internal Medicine 03/21/22 08/30/23 Nelia Sullivan, KeithD [address] [place] [address] Pharmacist Internal Medicine 08/31/23 Laurel Monterroso Oil Recovery Unit OperatorHead Men'S Tennis Coach 10/27/22 Saige Aguilar 09/26/23 documented as of this encounter
--- OUTSIDE RECORDS SUMMARY | 2024-05-18 20:34 | XMS_ITS | Encounter Summary ---
Author Organization [employer] Address [address] [facility] 7t [place] [address] Care Team Providers Care Concrete Panel Installer Name Role Phone Radha Jamison DO Primary Care Provider [phone] DelAbdias hardy PharmD Unavailable Unavail able Nelia Sullivan PharmD Unavailable Reason for Visit * Reason Comments Med Refill Encounter Details Date Type Department Care Team (Late st Contact Info) Description 11/08/2022 Refill [facility] [address] [place], [place] [phone] Radha Jamison DO [address] [place] [address] Social History Tobacco Use Types Packs/Day Years [...] 11:45 AM EDT Office Visit [facility] [place] [address] Radha Jamison DO [facility] [place] [address] 06/14/2024 10:00 AM EDT Medication Management [facility] [place] [address] Nelia Sullivan PharmD [facility] [place] [address] 06/25/2024 9:45 AM EDT Office Visit [facility] [place] [address] Radha Jamison DO [facility] [place] [address] documented as of this encounter Goals Goal Patient Goal Type Associated Problems Recent Progress Patient-Stated? Author Hemoglobin A1c < 7 Result Component 10.6( 12:27 PM EST) No Abdias Murillo, PharmAdrian documented as of this encounter Visit Diagnoses Not on filedocumented in this encounter Additional Health Concerns Assessment Noted Time PHQ-9 Depression Total Score: 4 11/09/19 23 11:27 AM EDT documented as of this encounter Care Teams Concrete Panel Installer Relationship Specialty Start Date End Date Radha Jamison DO [facility] [place] [address] PCP - General Family Medicine 01/26/12 Abdias Murillo PharmD [address] [place], [place] [address] [address] Pharmacist Internal Medicine 03/21/22 08/30/23 Nelia Sullivan PharmD [address] [place] [address] [place] [address] Pharmacist Internal Medicine 08/31/23 Laurel Monterroso Supervisor GroveGeneral Assistant 10/27/22 Saige Aguilar 09/26/23 documented as of this encounter
--- OUTSIDE RECORDS SUMMARY | 2024-05-18 20:34 | XMS_ITS | Encounter Summary ---
Author Organization [employer] [facility] Address [address] [facility] 7t [place] [address] Care Team Providers Care Salesperson Household Appliances Name Role Phone Radha Jamison DO Primary Care Provider [phone] Abdias Murillo PharmD Unavailable Unavail able Nelia Sullivan PharmD Unavailable Reason for Visit * Reason Comments Med Refill Encounter Details Date Type Department Care Team (Late Contact Info) Description 10/25/2022 Refill [facility] [address] [place] [address] Radha Jamison DO [address] [place] [address] Chronic bilateral low back pain, unspecified whether [...] Description 05/20/2024 11:45 AM EDT Office Visit [facility] [address] [place] [address] Radha Jamison DO [address] [place] [address] 06/14/2024 10:00 AM EDT Medication Management [facility] [address] Nelia Sullivan PharmD [facility] [address] 06/25/2024 9:45 AM EDT Office Visit [facility] [place] [address] ShaheenRadha DO [address] [facility] [place] [address] documented as of this encounter Goals Goal [...] documented as of this encounter Care Teams Salesperson Household Appliances Relationship Specialty Start Date End Date KassandraRadha flores DO [facility] [place] [address] PCP - General Family Medicine 01/26/12 Abdias Murillo, PharmD [facility] [place] [address] Pharmacist Internal Medicine 03/21/22 08/30/23 Nelia Sullivan PharmD [facility] [address] Pharmacist Internal Medicine 08/31/23 Laurel Monterroso Supervisor Ordnance Truck InstallationSenior Technical Specialist 10/27/22 Saige Aguilar 09/26/23 documented as of this encounter
--- OUTSIDE RECORDS SUMMARY | 2024-05-18 20:34 | XMS_ITS | Encounter Summary ---
Author Organization [employer] Address [address] [facility] 7t [place] [address] Care Team Providers Care Criminal Defense Lawyer Name Role Phone ShaheenRadha Primary Care Provider [phone] Abdias Murillo PharmD Unavailable Unavail able Nelia Sullivan PharmD Unavailable [phone] Reason for Visit * Reason Onset Date Comments Dental Exam 08/24/2023 Encounter Details Date Type Department Care Team (Late st Contact Info) Description 08/24/2023 Telephone [facility] [address] [place] [address] Libby Siddiqui, DDS [address] [place] [address] Dental Exam Social History Tobacco Use Types [...] 05/20/2024 11:45 AM EDT Office Visit [facility] [address] [place] [address] Radha Jamison DO [address] [place] [address] 06/14/2024 10:00 AM EDT Medication Management [facility] [address] [place] [address] Nelia Sullivan, PharmD [address] [place] [address] 06/25/2024 9:45 AM EDT Office Visit [facility] [address] [place] [address] Radha Jamison DO [address] [place] [address] documented as of this encounter Goals Goal [...] documented as of this encounter Care Teams Criminal Defense Lawyer Relationship Specialty Start Date End Date Radha Jamison DO [address] [place] [address] PCP - General Family Medicine 01/26/12 Abdias Murillo, PharmD [address] [place] [address] Pharmacist Internal Medicine 03/21/22 08/30/23 Nelia Sullivan PharmD [address] [place] [address] Pharmacist Internal Medicine 08/31/23 Laurel Monterroso Professor Of Family MedicineSpring Upholsterer 10/27/22 Saige Aguilar 09/26/23 documented as of this encounter
--- OUTSIDE RECORDS SUMMARY | 2024-05-18 20:34 | XMS_ITS | Encounter Summary ---
Author Organization [employer] Address [address] [facility] 7t [place] [address] Care Team Providers Care Field Pipe Lines Supervisor Name Role Phone Radha Jamison DO Primary Care Provider [phone]- [phone] Abdias Murillo PharmD Unavailable Unavail able Nelia Sullivan PharmD Unavailable [phone] Reason for Visit * Reason Comments Med Refill Encounter Details Date Type Department Care Team (Late st Contact Info) Description 12/20/2022 Refill [facility]INE [address] [place] [address] Radha Jamison DO [address] [place] [address] Chronic bilateral low back pain, unspecified whether [...] Description 05/20/2024 11:45 AM EDT Office Visit [address] [address] Radha Jamison DO [address] [place] [address] 06/14/2024 10:00 AM EDT Medication Management [address] [address] Nelia Sullivan PharmD [address] [place] [address] 06/25/2024 9:45 AM EDT Office Visit [address] [address] Radha Jamison DO [address] [place] [address] documented as of this encounter Goals Goal [...] documented as of this encounter Care Teams Field Pipe Lines Supervisor Relationship Specialty Start Date End Date Radha Jamison DO [address] [place] [address] PCP - General Family Medicine 01/26/12 Abdias Murillo, KeithD [address] [place] [address] Pharmacist Internal Medicine 03/21/22 08/30/23 Nelia Sullivan PharmD [address] [place] [address] Pharmacist Internal Medicine 08/31/23 Laurel Monterroso Materials Research EngineerApplication Performance Engineer 10/27/22 Saige Aguilar 09/26/23 documented as of this encounter
--- OUTSIDE RECORDS SUMMARY | 2024-05-18 20:34 | XMS_ITS | Encounter Summary ---
Author Organization [employer] Address [address] [facility] [address] 7t [place] [address] Care Team Providers Care Director Behavioral Health Name Role Phone Radha Jamison DO Primary Care Provider [phone] Abdias Murillo PharmD Unavailable Unavail able Nelia Sullivan PharmD Unavailable [phone] Encounter Details Date Type Department Care Team (Late st Contact Info) Description 06/15/[address] [facility] 230 [place] [address] Radha Jamison DO [address] [place], [place] [phone] Stenosis of right carotid artery Social History [...] Description 05/20/2024 11:45 AM EDT Office Visit [address] [address] Radha Jamison DO [address] [place] [address] 06/14/2024 10:00 AM EDT Medication Management [address] [address] Nelia Sullivan PharmD [address] [place] [address] 06/25/2024 9:45 AM EDT Office Visit [address] [address] Radha Jamison DO [address] [place] [address] documented as of this encounter Goals Goal Patient Goal Type Associated Problems Recent Progress Patient-Stated? Author Hemoglobin A1c < 7 Result Component 10.6( 5 12:27 PM EST) Abdias Owens, KeithD documented as of this encounter Procedures Procedure [...] as of this encounter Care Teams Director Behavioral Health Relationship Specialty Start Date End Date Radha Jamison DO [address] [place] [address] PCP - General Family Medicine 01/26/12 Abdias Murillo PharmD [address] [place] [address] Pharmacist Internal Medicine 03/21/22 08/30/23 Nelia Sullivan PharmD [address] [place] [address] Pharmacist Internal Medicine 08/31/23 Laurel Monterroso Surgical Instrument TechnicianPhysics Instructor 10/27/22 Saige Aguilar 09/26/23 documented as of this encounter
--- OUTSIDE RECORDS SUMMARY | 2024-05-18 20:34 | XMS_ITS | Encounter Summary ---
Author Organization [employer] Address [address] [facility] 7t [place] [address] Care Team Providers Care Hiv Prevention Specialist Name Role Phone Radha Jamison DO Primary Care Provider [phone] Abdias Murillo PharmD Unavailable Unavail able Nelia Sullivan PharmD Unavailable [phone] Reason for Visit * Reason Comments Med Refill Encounter Details Date Type Department Care Team (Late st Contact Info) Description 12/22/2022 Refill [facility] [address] [place] [address] Radha Jamison DO [address] [place] [address] Chronic bilateral low back pain, unspecified whether [...] Description 05/20/2024 11:45 AM EDT Office Visit [address] [address] Radha Jamison DO [address] [place] [address] 06/14/2024 10:00 AM EDT Medication Management [address] [address] Nelia Sullivan PharmD [address] [place] [address] 06/25/2024 9:45 AM EDT Office Visit [address] [address] Radha Jamison DO [address] [place] [address] documented as of this encounter Goals Goal [...] documented as of this encounter Care Teams Hiv Prevention Specialist Relationship Specialty Start Date End Date Radha Jamison DO [address] [place] [address] PCP - General Family Medicine 01/26/12 Abdias Murillo, KeithD [address] [place] [address] Pharmacist Internal Medicine 03/21/22 08/30/23 Nelia Sullivan PharmD [address] [place] [address] Pharmacist Internal Medicine 08/31/23 Laurel Monterroso Tool Design DraftspersonSpectral Scientist 10/27/22 Saige Aguilar 09/26/23 documented as of this encounter
--- OUTSIDE RECORDS SUMMARY | 2024-05-18 20:34 | XMS_ITS | Encounter Summary ---
Author Organization [employer] Address [address] [facility] 7t [place] [address] Care Team Providers Care Security Incident Response Specialist Name Role Phone Radha Jamison DO Primary Care Provider DelAbdias hardy PharmD Unavailable Unavail able Nelia Sullivan PharmD Unavailable Reason for Visit * Reason Comments Med Refill Encounter Details Date Type Department Care Team (Late st Contact Info) Description 01/24/2022 Telephone [facility] [address] [place], [place] [phone] Radha Jamison DO [address] [place] [address] Med Refill Social History Tobacco Use Types [...] EDT Office Visit [facility] [address] [place] [address] Radha Jamison DO [address] [place] [address] 06/14/2024 10:00 AM EDT Medication Management [address] [address] Nelia Sullivan PharmD [address] [place] [address] 06/25/2024 9:45 AM EDT Office Visit [address] [address] Radha Jamison DO [address] [place] [address] documented as of this encounter Visit Diagnoses Diagnosis Chronic bilateral low back pain, unspecified whether sciatica present documented in this encounter Care Teams Security Incident Response Specialist Relationship Specialty Start Date End Date Radha Jamison DO [address] [place] [address] PCP - General Family Medicine 01/26/12 Abdias Murillo PharmD [address] [place] [address] Pharmacist Internal Medicine 03/21/22 08/30/23 Nelia Sullivan PharmD [address] [place] [address] Pharmacist Internal Medicine 08/31/23 Laurel Monterroso Food Processing ChemistPitch Worker 10/27/22 Saige Aguilar 09/26/23 documented as of this encounter
--- OUTSIDE RECORDS SUMMARY | 2024-05-18 20:34 | XMS_ITS | Encounter Summary ---
Author Organization [employer] [facility] Address [address] 7[address] [place] [address] Care Team Providers Care Public Health Social Worker Name Role Phone Radha Jamison DO Primary Care Provider [phone] DelAbdias hardy PharmD Unavailable Unavail able Nelia Sullivan PharmD Unavailable Encounter Details Date Type Department Care Team (Late st Contact Info) Description 02/03/2022 Orders Only [facility] MEDICINE [address] [place] [phone] Radha Jamison DO [address] [place] [address] Social History Tobacco Use Types Packs/Day Years [...] 11:45 AM EDT Office Visit [facility] MEDICINE [address] [place] [phone] Radha Jamison DO [address] [place], [place] [phone] 06/14/2024 10:00 AM EDT Medication Management [facility] MEDICINE [address] [place] [address] Nelia Sullivan, PharmD [address] [place], [place] [address] 06/25/2024 9:45 AM EDT Office Visit [facility] MEDICINE [address] [place] [address] Radha Jamison DO [address] [place] [address] documented as of this encounter Procedures Procedure [...] Sedimentation Rate 23(H) 0 - 20 MM/HR [facility] Comment:Patients with polycy themia and many hemoglobin abnormalitiesmay have depressed sed rates whereas patients with anemiamay have elevated sed rates. 04/24/2022 4:19 PM EDT 04/24/2022 4:27 PM EDT [facility] External Provider LAB BLO OD ORDERABLES Final Result Performing Organization Address [facility] de Phone Number [facility] [address] [place] [phone] * C-reactive Protein (04/24/2022 4:19 PM EDT) Pathologist [facility] C Reactive Protein 0.28 < or = 0.50 mg/dL [facility] 04/24/2022 4:19 PM EDT 04/24/2022 4:22 PM EDT [facility] External Provider LAB BLO OD ORDERABLES Final Result Performing Organization Address [facility] de Phone Number [facility] [address] [place] [phone] * Magnesium (04/24/2022 4:19 PM EDT) Pathologist [facility] Magnesium 1.7 1.6 - 2.6 mg/dL [facility] 04/24/2022 4:19 PM EDT 04/24/2022 4:22 PM EDT [facility] External Provider LAB BLO OD ORDERABLES Final Result Performing Organization Address [facility] de Phone Number [facility] [address] [place] [phone] * (ABNORMAL) Basic Metabolic Panel (04/24/2022 4:19 PM EDT) Sodium 135 135 - 145 mmol/L [facility] Potassium 4.7 3.3 - 5.1 mmol/L [facility] Chloride 100 96 - 108 mmol/L [facility] Carbon Dioxide 27 22 - 29 mmol/L [facility] Anion Gap 13 12 - 20 [facility] Urea Nitrogen (BUN) 20(H) 9 - 16 mg/dL [facility] Creatinine, Serum 1.01 0.5 - 1.4 mg/dL [facility] Creatinine Clr Calc Pharmacy 48.8 [facility] Comment:Provided height and weight: 152.4 cm,62.4 kg.eGFR (calculated from the MDRD study equation) and eCrCl(calculated from the Cockcroft-Gault equation) are based ondifferent parameters and may not yield comparable results.If eCrCl result is absurd, please check patient'sheight/weight. Estimated Glomerular Filt Rate 56 [facility] Comment:NOTE: For -Am erican individuals, multiply the result by 1.210.Chronic Kidney Disease: Estimated GFR < 60 mL/min/1.15y7Obgezc Kidney Disease: Estimated GFR < 15 mL/min/1.73m2 Glucose 269(H) 60 - 115 mg/dL [facility] Calcium 9.2 8.4 - 10.2 mg/dL [facility] 04/24/2022 4:19 PM EDT 04/24/2022 4:22 PM EDT [facility] External Provider LAB BLO OD ORDERABLES Final Result [facility] [address] [place] [phone] * Hepatic Function Panel (04/24/2022 4:19 PM EDT) Bilirubin, Total 0.6 0.0 - 1.0 mg/dL [facility] Bilirubin, Direct <0.2 0.0 - 0.5 mg/dL [facility] Aspartate Amino Transferase 11 5 - 31 U/L [facility] Alanine Aminotransferase 6 0 - 31 U/L [facility] Total Protein 6.5 6.5 - 8.0 g/dL [facility] Albumin Level 4.0 3.5 - 5.0 g/dL [facility] Alkaline Phosphatase 80 39 - 117 U/L [facility] 04/24/2022 4:19 PM EDT 04/24/2022 4:22 PM EDT [facility] External Provider LAB BLO OD ORDERABLES Final Result [facility] [address] [place] [address] [phone] * (ABNORMAL) CBC auto differential (04/24/2022 4:19 PM EDT) White Blood Count 7.3 4.8 - 10.8 X10*3/uL [facility] Red Blood Count 4.14(L) 4.20 - 5.50 X10*6/uL [facility] Hemoglobin 12.1 12.0 - 16.0 g/dl [facility] Hematocrit 36.6(L) 37.0 - 47.0 % [facility] Mean Corpuscular Volume 88.4 80.0 - 98.0 fL [facility] Mean Corpuscular Hemoglobin 29.2 27.0 - 33.0 pg [facility] Mean Corpuscular HGB Conc 33.1 31.0 - 35.0 g/dl [facility] Red Cell Distribution Width 13.4 11.0 - 16.0 % [facility] Platelet Count 333 160 - 400 X10*3/uL [facility] Mean Platelet Volume 8.9(L) 9.4 - 12.3 fL [facility] Neutrophils Percent Auto 62.4 45 - 73 % [facility] Imm Gran Pct Auto 0.3 0.0 - 0.4 % [facility] Lymphocytes Percent Auto 28.8 20 - 40 % [facility] Monocytes Percent Auto 5.3 2 - 11 % [facility] Eosinophils Percent Auto 2.7 0 - 4 % [facility] Basophils Percent Auto 0.5 0 - 2 % [facility] NRBC Pct Auto 0.0 0.0 - 0.2 /100WBC [facility] Neutrophils Absolute Auto 4.6 2.0 - 8.3 x10*3/uL [facility] Imm Gran Abs Auto 0.02 0.00 - 0.03 X10*3/uL [facility] Lymphocytes Absolute Auto 2.1 1.2 - 4.9 X10*3/uL [facility] Monocytes Absolute Auto 0.4 0.1 - 1.2 X10*3/uL [facility] Eosinophils Absolute Auto 0.2 0.0 - 0.4 X10*3/uL [facility] Basophils Absolute Auto 0.0 0.0 - 0.2 X10*3/uL [facility] NRBC Abs Auto 0.000 0.0 - 0.012 X10*3/uL [facility] 04/24/2022 4:19 PM EDT 04/24/2022 4:22 PM EDT [facility] External Provider LAB BLO OD ORDERABLES Final Result [facility] [address] [place] [phone] * (ABNORMAL) Urinalysis, Complete, with Reflex to Culture (04/17/2022 10:53 AM EST) Color Urine Yellow [facility] Appearance Urine Clear [facility] PH 7.5 5.0 - 9.0 [facility] Glucose Urine UA 100(A) Negative mg/dL [facility] Urine Blood Negative Negative [facility] Specific [place] - Urine >=1.030(H) 1.005 - 1.025 [facility] Urine Protein 100 (2+)(A) Neg-Trace mg/dL [facility] Urine Ketones Negative Negative mg/dL [facility] Nitrite Urine Negative Negative [facility] Leukocyte Esterase Urine Negative Negative [facility] RBC Urine 3-5(A) 0 - 2 /HPF [facility] Urine WBC 0-5 0 - 5 /HPF [facility] Urine Squamous Epithelial Cell 3-5 0 - 2 /HPF [facility] Urine Bacteria None Seen None Seen [facility] Hyaline Casts, Urine 0-2 0 - 2 /LPF [facility] 04/17/2022 10:5 3 AM EST 04/17/2022 10:56 AM EST Narrative [facility] - 04/17/2022 11:06 AM EST Urine, Clean Catch [facility] External Provider LAB URI NE ORDERABLES Final Result Performing Organization Address City/[facility]/ZIP Co de Phone Number [facility] [address] [place] [address] [phone] * (ABNORMAL) Sed Rate by Modified Kamaljitergren (04/17/2022 8:21 AM EST) Erythrocyte Sedimentation Rate 23(H) 0 - 20 MM/HR [facility] Comment:Patients with polycy themia and many hemoglobin abnormalitiesmay have depressed sed rates whereas patients with anemiamay have elevated sed rates. 04/17/2022 8:21 AM EST 04/17/2022 8:41 AM EST [facility] External Provider LAB BLO OD ORDERABLES Final Result Performing Organization Address City/[facility]/ZIP Co de Phone Number [facility] [address] [place] [phone] * Lipase (04/17/2022 8:21 AM EST) Lipase 10 8 - 78 U/L [facility] 04/17/2022 8:21 AM EST 04/17/2022 8:24 AM EST [facility] External Provider LAB BLO OD ORDERABLES Final Result Performing Organization Address City/[facility]/ZIP Co de Phone Number [facility] [address] [place] [address] [phone] * C-reactive Protein (04/17/2022 8:21 AM EST) Pathologist [facility] C Reactive Protein 0.23 < or = 0.50 mg/dL [facility] 04/17/2022 8:21 AM EST 04/17/2022 8:24 AM EST [facility] External Provider LAB BLO OD ORDERABLES Final Result Performing Organization Address [facility]/ZIP Co de Phone Number [facility] [address] [place] [address] [phone] * Magnesium (04/17/2022 8:21 AM EST) Pathologist [facility] Magnesium 1.6 1.6 - 2.6 mg/dL [facility] 04/17/2022 8:21 AM EST 04/17/2022 8:24 AM EST [facility] External Provider LAB BLO OD ORDERABLES Final Result Performing Organization Address [facility] de Phone Number [facility] [address] [place] [address] [phone] * (ABNORMAL) Hepatic Function Panel (04/17/2022 8:21 AM EST) Pathologist [facility] Bilirubin, Total 0.7 0.0 - 1.0 mg/dL [facility] Bilirubin, Direct <0.2 0.0 - 0.5 mg/dL [facility] Aspartate Amino Transferase 10 5 - 31 U/L [facility] Alanine Aminotransferase 7 0 - 31 U/L [facility] Total Protein 6.2(L) 6.5 - 8.0 g/dL [facility] Albumin Level 3.8 3.5 - 5.0 g/dL [facility] Alkaline Phosphatase 71 39 - 117 U/L [facility] 04/17/2022 8:21 AM EST 04/17/2022 8:24 AM EST [facility] External Provider LAB BLO OD ORDERABLES Final Result Performing Organization Address City/[facility]/ZIP Co de Phone Number [facility] [address] [place] [address] [phone] * (ABNORMAL) Basic Metabolic Panel (04/17/2022 8:21 AM EST) Sodium 138 135 - 145 mmol/L [facility] Potassium 4.9 3.3 - 5.1 mmol/L [facility] Chloride 104 96 - 108 mmol/L [facility] Carbon Dioxide 26 22 - 29 mmol/L [facility] Anion Gap 13 12 - 20 [facility] Urea Nitrogen (BUN) 17(H) 9 - 16 mg/dL [facility] Creatinine, Serum 0.79 0.5 - 1.4 mg/dL [facility] Creatinine Clr Calc Pharmacy 66.3 [facility] Comment:Provided height and weight: 157.48 cm,63.503 kg.eGFR (calculated from the MDRD study equation) and eCrCl(calculated from the Cockcroft-Gault equation) are based ondifferent parameters and may not yield comparable results.If eCrCl result is absurd, please check patient'sheight/weight. Estimated Glomerular Filt Rate >60 [facility] Comment:NOTE: For -Am erican individuals, multiply the result by 1.210.Chronic Kidney Disease: Estimated GFR < 60 mL/min/1.92x8Nwqash Kidney Disease: Estimated GFR < 15 mL/min/1.73m2 Glucose 272(H) 60 - 115 mg/dL [facility] Calcium 9.1 8.4 - 10.2 mg/dL [facility] 04/17/2022 8:21 AM EST 04/17/2022 8:24 AM EST [facility] External Provider LAB BLO OD ORDERABLES Final Result [facility] [address] [place] [phone] * (ABNORMAL) CBC auto differential (04/17/2022 8:21 AM EST) White Blood Count 5.7 4.8 - 10.8 X10*3/uL [facility] Red Blood Count 4.01(L) 4.20 - 5.50 X10*6/uL [facility] Hemoglobin 11.7(L) 12.0 - 16.0 g/dl [facility] Hematocrit 35.9(L) 37.0 - 47.0 % [facility] Mean Corpuscular Volume 89.5 80.0 - 98.0 fL [facility] Mean Corpuscular Hemoglobin 29.2 27.0 - 33.0 pg [facility] Mean Corpuscular HGB Conc 32.6 31.0 - 35.0 g/dl [facility] Red Cell Distribution Width 13.4 11.0 - 16.0 % [facility] Platelet Count 309 160 - 400 X10*3/uL [facility] Mean Platelet Volume 9.3(L) 9.4 - 12.3 fL [facility] Neutrophils Percent Auto 60.9 45 - 73 % [facility] Imm Gran Pct Auto 0.4 0.0 - 0.4 % [facility] Lymphocytes Percent Auto 27.3 20 - 40 % [facility] Monocytes Percent Auto 6.3 2 - 11 % [facility] Eosinophils Percent Auto 4.4(H) 0 - 4 % [facility] Basophils Percent Auto 0.7 0 - 2 % [facility] NRBC Pct Auto 0.0 0.0 - 0.2 /100WBC [facility] Neutrophils Absolute Auto 3.5 2.0 - 8.3 x10*3/uL [facility] Imm Gran Abs Auto 0.02 0.00 - 0.03 X10*3/uL [facility] Lymphocytes Absolute Auto 1.6 1.2 - 4.9 X10*3/uL [facility] Monocytes Absolute Auto 0.4 0.1 - 1.2 X10*3/uL [facility] Eosinophils Absolute Auto 0.3 0.0 - 0.4 X10*3/uL [facility] Basophils Absolute Auto 0.0 0.0 - 0.2 X10*3/uL [facility] NRBC Abs Auto 0.000 0.0 - 0.012 X10*3/uL [facility] 04/17/2022 8:21 AM EST 04/17/2022 8:24 AM EST [facility] External Provider LAB BLO OD ORDERABLES Final Result Performing Organization Address [facility] Co de Phone Number [facility] [address] [place] [address] [phone] * Creatinine, Serum (04/13/2022 7:33 AM EST) Creatinine, Serum 0.75 0.5 - 1.4 mg/dL [facility] Creatinine Clr Calc Pharmacy 70.3 [facility] Comment:Provided height and weight: 157.48 cm,64.41 kg.eGFR (calculated from the MDRD study equation) and eCrCl(calculated from the Cockcroft-Gault equation) are based ondifferent parameters and may not yield comparable results.If eCrCl result is absurd, please check patient'sheight/weight. Estimated Glomerular Filt Rate >60 [facility] Comment:NOTE: For -Am erican individuals, multiply the result by 1.210.Chronic Kidney Disease: Estimated GFR < 60 mL/min/1.48f2Nosswy Kidney Disease: Estimated GFR < 15 mL/min/1.73m2 04/13/2022 7:33 AM EST 04/13/2022 7:38 AM EST [facility] External Provider LAB BLO OD ORDERABLES Final Result Performing Organization Address [facility] Co de Phone Number [facility] [address] [place] [address] [phone] * BUN (Blood Urea Nitrogen) (04/13/2022 7:33 AM EST) Urea Nitrogen (BUN) 12 9 - 16 mg/dL [facility] 04/13/2022 7:33 AM EST 04/13/2022 7:38 AM EST [facility] External Provider LAB BLO OD ORDERABLES Final Result [facility] [address] [place] [address] [phone] * (ABNORMAL) CBC auto differential (04/13/2022 7:33 AM EST) White Blood Count 6.6 4.8 - 10.8 X10*3/uL [facility] Red Blood Count 4.12(L) 4.20 - 5.50 X10*6/uL [facility] Hemoglobin 12.1 12.0 - 16.0 g/dl [facility] Hematocrit 36.6(L) 37.0 - 47.0 % [facility] Mean Corpuscular Volume 88.8 80.0 - 98.0 fL [facility] Mean Corpuscular Hemoglobin 29.4 27.0 - 33.0 pg [facility] Mean Corpuscular HGB Conc 33.1 31.0 - 35.0 g/dl [facility] Red Cell Distribution Width 13.6 11.0 - 16.0 % [facility] Platelet Count 291 160 - 400 X10*3/uL [facility] Mean Platelet Volume 9.0(L) 9.4 - 12.3 fL [facility] Neutrophils Percent Auto 55.5 45 - 73 % [facility] Imm Gran Pct Auto 0.2 0.0 - 0.4 % [facility] Lymphocytes Percent Auto 33.7 20 - 40 % [facility] Monocytes Percent Auto 6.5 2 - 11 % [facility] Eosinophils Percent Auto 3.6 0 - 4 % [facility] Basophils Percent Auto 0.5 0 - 2 % [facility] NRBC Pct Auto 0.0 0.0 - 0.2 /100WBC [facility] Neutrophils Absolute Auto 3.7 2.0 - 8.3 x10*3/uL [facility] Imm Gran Abs Auto 0.01 0.00 - 0.03 X10*3/uL [facility] Lymphocytes Absolute Auto 2.2 1.2 - 4.9 X10*3/uL [facility] Monocytes Absolute Auto 0.4 0.1 - 1.2 X10*3/uL [facility] Eosinophils Absolute Auto 0.2 0.0 - 0.4 X10*3/uL [facility] Basophils Absolute Auto 0.0 0.0 - 0.2 X10*3/uL [facility] NRBC Abs Auto 0.000 0.0 - 0.012 X10*3/uL [facility] 04/13/2022 7:33 AM EST 04/13/2022 7:38 AM EST [facility] External Provider LAB BLO OD ORDERABLES Final Result Performing Organization Address City/[facility]/ZIP Co de Phone Number [facility] [address] [place] [address] [phone] * (ABNORMAL) GLUCOSE, WHOLE BLOOD (04/13/2022 7:27 AM EST) [facility] Glucose, Whole Blood 197(H) 60 - 115 mg/dL [facility] Comment:METER #: [id number] 04/13/2022 7:27 AM EST 04/13/2022 7:31 AM EST [facility] External Provider LAB BLO OD ORDERABLES Final Result Performing Organization Address [facility] Co de Phone Number [facility] [address] [place] [address] [phone] * HIGH SENSITIVITY TROPONIN I (04/03/2022 8:36 PM EST) [facility] TROPONIN I HIGH SENSITIVITY 6.0 <3.5 - 17.0 ng/L [facility] Comment:The Ibrahim high sens itivity Troponin-I results should beused in conjunction with other diagnostic information suchas ECG, clinical observations and information, and patientsymptoms to aid in the diagnosis of [place]. 04/03/2022 8:36 PM EST 04/03/2022 8:38 PM EST [facility] External Provider LAB BLO OD ORDERABLES Final Result Performing Organization Address City/[facility]/ZIP Co de Phone Number [facility] [address] [place] [address] [phone] * Lipase (04/03/2022 8:36 PM EST) [facility] Lipase 10 8 - 78 U/L [facility] 04/03/2022 8:36 PM EST 04/03/2022 8:38 PM EST [facility] External Provider LAB BLO OD ORDERABLES Final Result Performing Organization Address City/[facility] Co de Phone Number [facility] [address] [place] [address] [phone] * (ABNORMAL) Basic Metabolic Panel (04/03/2022 8:36 PM EST) [facility] Sodium 138 135 - 145 mmol/L [facility] Potassium 3.9 3.3 - 5.1 mmol/L [facility] Chloride 104 96 - 108 mmol/L [facility] Carbon Dioxide 27 22 - 29 mmol/L [facility] Anion Gap 11(L) 12 - 20 [facility] Urea Nitrogen (BUN) 11 9 - 16 mg/dL [facility] Creatinine, Serum 0.74 0.5 - 1.4 mg/dL [facility] Creatinine Clr Calc Pharmacy 70.7 [facility] Comment:Provided height and weight: 157.48 cm,63.503 kg.eGFR (calculated from the MDRD study equation) and eCrCl(calculated from the Cockcroft-Gault equation) are based ondifferent parameters and may not yield comparable results.If eCrCl result is absurd, please check patient'sheight/weight. Estimated Glomerular Filt Rate >60 [facility] Comment:NOTE: For -Am erican individuals, multiply the result by 1.210.Chronic Kidney Disease: Estimated GFR < 60 mL/min/[id number] Kidney Disease: Estimated GFR < 15 mL/min/1.73m2 Glucose 246(H) 60 - 115 mg/dL [facility] Calcium 9.0 8.4 - 10.2 mg/dL [facility] 04/03/2022 8:36 PM EST 04/03/2022 8:38 PM EST [facility] External Provider LAB BLO OD ORDERABLES Final Result Performing Organization Address [facility] de Phone Number [facility] [address] [place] [phone] * (ABNORMAL) Hepatic Function Panel (04/03/2022 8:36 PM EST) Bilirubin, Total 0.6 0.0 - 1.0 mg/dL [facility] Bilirubin, Direct 0.2 0.0 - 0.5 mg/dL [facility] Aspartate Amino Transferase 10 5 - 31 U/L [facility] Alanine Aminotransferase 8 0 - 31 U/L [facility] Total Protein 5.8(L) 6.5 - 8.0 g/dL [facility] Albumin Level 3.7 3.5 - 5.0 g/dL [facility] Alkaline Phosphatase 76 39 - 117 U/L [facility] 04/03/2022 8:36 PM EST 04/03/2022 8:38 PM EST [facility] External Provider LAB BLO OD ORDERABLES Final Result Performing Organization Address [facility] de Phone Number [facility] [address] [place] [address] [phone] * (ABNORMAL) CBC auto differential (04/03/2022 8:36 PM EST) White Blood Count 6.0 4.8 - 10.8 X10*3/uL [facility] Red Blood Count 4.10(L) 4.20 - 5.50 X10*6/uL [facility] Hemoglobin 12.0 12.0 - 16.0 g/dl [facility] Hematocrit 35.6(L) 37.0 - 47.0 % [facility] Mean Corpuscular Volume 86.8 80.0 - 98.0 fL [facility] Mean Corpuscular Hemoglobin 29.3 27.0 - 33.0 pg [facility] Mean Corpuscular HGB Conc 33.7 31.0 - 35.0 g/dl [facility] Red Cell Distribution Width 13.3 11.0 - 16.0 % [facility] Platelet Count 276 160 - 400 X10*3/uL [facility] Mean Platelet Volume 9.2(L) 9.4 - 12.3 fL [facility] Neutrophils Percent Auto 58.2 45 - 73 % [facility] Imm Gran Pct Auto 0.2 0.0 - 0.4 % [facility] Lymphocytes Percent Auto 32.9 20 - 40 % [facility] Monocytes Percent Auto 6.0 2 - 11 % [facility] Eosinophils Percent Auto 2.2 0 - 4 % [facility] Basophils Percent Auto 0.5 0 - 2 % [facility] NRBC Pct Auto 0.0 0.0 - 0.2 /100WBC [facility] Neutrophils Absolute Auto 3.5 2.0 - 8.3 x10*3/uL [facility] Imm Gran Abs Auto 0.01 0.00 - 0.03 X10*3/uL [facility] Lymphocytes Absolute Auto 2.0 1.2 - 4.9 X10*3/uL [facility] Monocytes Absolute Auto 0.4 0.1 - 1.2 X10*3/uL [facility] Eosinophils Absolute Auto 0.1 0.0 - 0.4 X10*3/uL [facility] Basophils Absolute Auto 0.0 0.0 - 0.2 X10*3/uL [facility] NRBC Abs Auto 0.000 0.0 - 0.012 X10*3/uL [facility] 04/03/2022 8:36 PM EST 04/03/2022 8:38 PM EST [facility] External Provider LAB BLO OD ORDERABLES Final Result Performing Organization Address City/[facility]/ZIP Co de Phone Number [facility] [address] [place] [phone] * (ABNORMAL) GLUCOSE, WHOLE BLOOD (04/03/2022 7:56 PM EST) Glucose, Whole Blood 227(H) 60 - 115 mg/dL [facility] Comment:METER #: [id number] 6 04/03/2022 7:56 PM EST 04/03/2022 8:01 PM EST [facility] External Provider LAB BLO OD ORDERABLES Final Result Performing Organization Address City/[facility] Co de Phone Number [facility] [address] [place] [address] [phone] * (ABNORMAL) B Type Natriuretic Peptide (BNP) (03/09/2022 5:39 PM EST) B Type Natriuretic Peptide 125(H) <100 pg/mL [facility] Comment:For those patients w ho are being treated with Natrecor(nesiritide, recombinant BNP), BNP testing should beperformed at least two hours post treatment in order toensure that only endogenous levels of BNP are detected. 03/09/2022 5:39 PM EST 03/09/2022 6:48 PM EST [facility] External Provider LAB BLO OD ORDERABLES Final Result Performing Organization Address [facility] de Phone Number [facility] [address] [place] [phone] * SARS-CoV-2 RNA, Influenza A/B, and RSV RNA, Ql NAAT (03/09/2022 5:39 PM EST) Pathologist [facility] Influenza A PCR NEGATIVE Negative [facility] Influenza B PCR NEGATIVE Negative [facility] Resp Syncy Virus RNA Qual PCR NEGATIVE Negative [facility] SARS COV2 PCR NEGATIVE Negative [facility] SARS/Flu/RSV Note See Note [facility] Comment:All test results mus t be [...] use by authorized laboratories.Testing performed on the [employer] GeneXpert utilizingreal-time RT-PCR.All SARS CoV2 and positive influenza A/B results arereported to [facility]. 03/09/2022 5:39 PM EST 03/09/2022 5:43 PM EST [facility] Exter nal Provider LAB MICROBIOLOGY - GENERAL ORDERABLES Final Result Performing Organization Address [facility] Co de Phone Number [facility] [address] [place] [address] [phone] * HIGH SENSITIVITY TROPONIN I (03/09/2022 5:39 PM EST) Pathologist [facility] TROPONIN I HIGH SENSITIVITY 5.6 <3.5 - 17.0 ng/L [facility] Comment:The Ibrahim high sens itivity Troponin-I results should beused in conjunction with other diagnostic information suchas ECG, clinical observations and information, and patientsymptoms to aid in the diagnosis of [place]. 03/09/2022 5:39 PM EST 03/09/2022 5:43 PM EST [facility] External Provider LAB BLO OD ORDERABLES Final Result [facility] [address] [place] [phone] * (ABNORMAL) Comprehensive Metabolic Panel (03/09/2022 5:39 PM EST) Sodium 139 135 - 145 mmol/L [facility] Potassium 3.9 3.3 - 5.1 mmol/L [facility] Chloride 103 96 - 108 mmol/L [facility] Carbon Dioxide 27 22 - 29 mmol/L [facility] Anion Gap 13 12 - 20 [facility] Urea Nitrogen (BUN) 18(H) 9 - 16 mg/dL [facility] Creatinine, Serum 0.95 0.5 - 1.4 mg/dL [facility] Creatinine Clr Calc Pharmacy 53.0 [facility] Comment:Provided height and weight: 152.4 cm,65.2 kg.eGFR (calculated from the MDRD study equation) and eCrCl(calculated from the Cockcroft-Gault equation) are based ondifferent parameters and may not yield comparable results.If eCrCl result is absurd, please check patient'sheight/weight. Estimated Glomerular Filt Rate >60 [facility] Comment:NOTE: For -Am erican individuals, multiply the result by 1.210.Chronic Kidney Disease: Estimated GFR < 60 mL/min/[id number] Kidney Disease: Estimated GFR < 15 mL/min/1.73m2 Glucose 326(H) 60 - 115 mg/dL [facility] Calcium 9.1 8.4 - 10.2 mg/dL [facility] Bilirubin, Total 0.3 0.0 - 1.0 mg/dL [facility] Aspartate Amino Transferase 8 5 - 31 U/L [facility] Alanine Aminotransferase <6 0 - 31 U/L [facility] Total Protein 5.9(L) 6.5 - 8.0 g/dL [facility] Albumin Level 3.6 3.5 - 5.0 g/dL [facility] Alkaline Phosphatase 81 39 - 117 U/L [facility] 03/09/2022 5:39 PM EST 03/09/2022 5:43 PM EST us [facility] External Provider LAB BLO OD ORDERABLES Final Result [facility] [address], [place] [phone] * (ABNORMAL) CBC auto differential (03/09/2022 5:39 PM EST) White Blood Count 7.3 4.8 - 10.8 X10*3/uL [facility] Red Blood Count 4.03(L) 4.20 - 5.50 X10*6/uL [facility] Hemoglobin 11.7(L) 12.0 - 16.0 g/dl [facility] Hematocrit 35.1(L) 37.0 - 47.0 % [facility] Mean Corpuscular Volume 87.1 80.0 - 98.0 fL [facility] Mean Corpuscular Hemoglobin 29.0 27.0 - 33.0 pg [facility] Mean Corpuscular HGB Conc 33.3 31.0 - 35.0 g/dl [facility] Red Cell Distribution Width 13.4 11.0 - 16.0 % [facility] Platelet Count 296 160 - 400 X10*3/uL [facility] Mean Platelet Volume 9.3(L) 9.4 - 12.3 fL [facility] Neutrophils Percent Auto 63.9 45 - 73 % [facility] Imm Gran Pct Auto 0.1 0.0 - 0.4 % [facility] Lymphocytes Percent Auto 27.1 20 - 40 % [facility] Monocytes Percent Auto 5.9 2 - 11 % [facility] Eosinophils Percent Auto 2.6 0 - 4 % [facility] Basophils Percent Auto 0.4 0 - 2 % [facility] NRBC Pct Auto 0.0 0.0 - 0.2 /100WBC [facility] Neutrophils Absolute Auto 4.6 2.0 - 8.3 x10*3/uL [facility] Imm Gran Abs Auto 0.01 0.00 - 0.03 X10*3/uL [facility] Lymphocytes Absolute Auto 2.0 1.2 - 4.9 X10*3/uL [facility] Monocytes Absolute Auto 0.4 0.1 - 1.2 X10*3/uL [facility] Eosinophils Absolute Auto 0.2 0.0 - 0.4 X10*3/uL [facility] Basophils Absolute Auto 0.0 0.0 - 0.2 X10*3/uL [facility] NRBC Abs Auto 0.000 0.0 - 0.012 X10*3/uL [facility] 03/09/2022 5:39 PM EST 03/09/2022 5:43 PM EST us [facility] External Provider LAB BLO OD ORDERABLES Final Result Performing Organization Address City/State/[facility] Co de Phone Number [facility] [address] [place] [address] [phone] * Prothrombin Time-INR (03/09/2022 5:39 PM EST) Prothrombin Time 10.9 10.0 - 13.1 SEC [facility] INTERNATIONAL NORM RATIO 1.0 0.9 - 1.1 [facility] Comment:INTERNATIONAL NORMAL IZED RATIO (INR) [...] 5:39 PM EST 03/09/2022 5:43 PM EST [facility] External Provider LAB BLO OD ORDERABLES Final Result Performing Organization Address [facility] de Phone Number [facility] [address] [place] [phone] * GLUCOSE, WHOLE BLOOD (03/01/2022 12:41 AM EST) Glucose, Whole Blood 79 60 - 115 mg/dL [facility] Comment:METER #: [id number] 1 03/01/2022 12:4 1 AM EST 03/01/2022 12:46 AM EST [facility] External Provider LAB BLO OD ORDERABLES Final Result Performing Organization Address [facility] Phone Number [facility] [address] [place] [phone] * (ABNORMAL) GLUCOSE, WHOLE BLOOD (02/28/2022 10:39 PM EST) Glucose, Whole Blood 273(H) 60 - 115 mg/dL [facility] Comment:METER #: [id number] 1 02/28/2022 10:3 9 PM EST 02/28/2022 10:45 PM EST Result [facility] External Provider LAB BLO OD ORDERABLES Final Result Performing Organization Address [facility] de Phone Number [facility] [address] [place] [phone] * (ABNORMAL) Comprehensive Metabolic Panel (02/28/2022 9:42 PM EST) Sodium 138 135 - 145 mmol/L [facility] Potassium 4.3 3.3 - 5.1 mmol/L [facility] Comment:Slight Hemolysis Chloride 106 96 - 108 mmol/L [facility] Carbon Dioxide 24 22 - 29 mmol/L [facility] Anion Gap 12 12 - 20 [facility] Urea Nitrogen (BUN) 14 9 - 16 mg/dL [facility] Creatinine, Serum 0.87 0.5 - 1.4 mg/dL [facility] Creatinine Clr Calc Pharmacy 57.2 [facility] Comment:Provided height and weight: 152.4 cm,63.503 kg.eGFR (calculated from the MDRD study equation) and eCrCl(calculated from the Cockcroft-Gault equation) are based ondifferent parameters and may not yield comparable results.If eCrCl result is absurd, please check patient'sheight/weight. Estimated Glomerular Filt Rate >60 [facility] Comment:NOTE: For -Am erican individuals, multiply the result by 1.210.Chronic Kidney Disease: Estimated GFR < 60 mL/min/[id number] Kidney Disease: Estimated GFR < 15 mL/min/1.73m2 Glucose 378(HH) 60 - 115 mg/dL [facility] Comment:Critical value for t est(s): GLUR Results called to and readback by: EULA Person calling: HASTINS Date: 02/28/22Time: 2220 Calcium 9.3 8.4 - 10.2 mg/dL [facility] Bilirubin, Total 0.3 0.0 - 1.0 mg/dL [facility] Aspartate Amino Transferase 12 5 - 31 U/L [facility] Comment:Slight Hemolysis Alanine Aminotransferase 7 0 - 31 U/L [facility] Total Protein 6.7 6.5 - 8.0 g/dL [facility] Albumin Level 3.9 3.5 - 5.0 g/dL [facility] Alkaline Phosphatase 83 39 - 117 U/L [facility] 02/28/2022 9:42 PM EST 02/28/2022 9:48 PM EST us [facility] External Provider LAB BLO OD ORDERABLES Final Result [facility] [address] [place] [phone] * HIGH SENSITIVITY TROPONIN I (02/28/2022 9:42 PM EST) [facility] TROPONIN I HIGH SENSITIVITY 7.1 <3.5 - 17.0 ng/L [facility] Comment:The Ibrahim high sens itivity Troponin-I results should beused in conjunction with other diagnostic information suchas ECG, clinical observations and information, and patientsymptoms to aid in the diagnosis of [place]. 02/28/2022 9:42 PM EST 02/28/2022 9:48 PM EST us [facility] External Provider LAB BLO OD ORDERABLES Final Result [facility] [address] [place] [phone] * (ABNORMAL) CBC (02/28/2022 9:42 PM EST) [facility] White Blood Count 7.0 4.8 - 10.8 X10*3/uL [facility] Red Blood Count 4.22 4.20 - 5.50 X10*6/uL [facility] Hemoglobin 12.1 12.0 - 16.0 g/dl [facility] Hematocrit 36.4(L) 37.0 - 47.0 % [facility] Mean Corpuscular Volume 86.3 80.0 - 98.0 fL [facility] Mean Corpuscular Hemoglobin 28.7 27.0 - 33.0 pg [facility] Mean Corpuscular HGB Conc 33.2 31.0 - 35.0 g/dl [facility] Red Cell Distribution Width 13.3 11.0 - 16.0 % [facility] Platelet Count 311 160 - 400 X10*3/uL [facility] Mean Platelet Volume 9.7 9.4 - 12.3 fL [facility] NRBC Pct Auto 0.0 0.0 - 0.2 /100WBC [facility] NRBC Abs Auto 0.000 0.0 - 0.012 X10*3/uL [facility] 02/28/2022 9:42 PM EST 02/28/2022 9:48 PM EST [facility] External Provider LAB BLO OD ORDERABLES Final Result Performing Organization Address [facility] Co de Phone Number [facility] [address] [place] [phone] * (ABNORMAL) GLUCOSE, WHOLE BLOOD (02/28/2022 9:38 PM EST) Glucose, Whole Blood 379(HH) 60 - 115 mg/dL [facility] Comment:METER #: [id number] 1 02/28/2022 9:38 PM EST 02/28/2022 9:48 PM EST Result [facility] External Provider LAB BLO OD ORDERABLES Final Result Performing Organization Address City/[facility] Co de Phone Number [facility] [address] [place] [phone] * (ABNORMAL) Urinalysis, Complete, with Reflex to Culture (02/22/2022 3:20 PM EST) Color Urine Yellow [facility] Appearance Urine Cloudy [facility] PH 6.5 5.0 - 9.0 [facility] Glucose Urine UA >=1000(A) Negative mg/dL [facility] Urine Blood Negative Negative [facility] Specific [place] - Urine 1.020 1.005 - 1.025 [facility] Urine Protein 100 (2+)(A) Neg-Trace mg/dL [facility] Urine Ketones Negative Negative mg/dL [facility] Nitrite Urine Negative Negative [facility] Leukocyte Esterase Urine Small (1+)(A) Negative [facility] RBC Urine 3-5(A) 0 - 2 /HPF [facility] Urine WBC 0-5 0 - 5 /HPF [facility] Urine Squamous Epithelial Cell 0-2 0 - 2 /HPF [facility] Urine Bacteria None Seen None Seen [facility] Hyaline Casts, Urine 3-5 0 - 2 /LPF [facility] 02/22/2022 3:20 PM EST 02/22/2022 3:27 PM EST Narrative [facility] - 02/22/2022 4:14 PM EST [id number], Clean Catch [facility] External Provider LAB URI NE ORDERABLES Final Result [facility] [address] [place] [phone] * SARS-CoV-2 RNA, Influenza A/B, and RSV RNA, Ql NAAT (02/22/2022 3:14 PM EST) Influenza A PCR NEGATIVE Negative [facility] Influenza B PCR NEGATIVE Negative [facility] Resp Syncy Virus RNA Qual PCR NEGATIVE Negative [facility] SARS COV2 PCR NEGATIVE Negative [facility] SARS/Flu/RSV Note See Note [facility] Comment:All test results mus t be [...] use by authorized laboratories.Testing performed on the [employer] GeneXpert utilizingreal-time RT-PCR.All SARS CoV2 and positive influenza A/B results arereported to [facility]. 02/22/2022 3:14 PM EST 02/22/2022 3:19 PM EST [facility] Exter nal Provider LAB MICROBIOLOGY - GENERAL ORDERABLES Final Result Performing Organization Address City/State/[facility] de Phone Number [facility] [address] [place] [phone] * HIGH SENSITIVITY TROPONIN I (02/22/2022 3:14 PM EST) [facility] TROPONIN I HIGH SENSITIVITY 8.8 <3.5 - 17.0 ng/L [facility] Comment:The Ibrahim high sens itivity Troponin-I results should beused in conjunction with other diagnostic information suchas ECG, clinical observations and information, and patientsymptoms to aid in the diagnosis of [place]. 02/22/2022 3:14 PM EST 02/22/2022 3:19 PM EST [facility] External Provider LAB BLO OD ORDERABLES Final Result Performing Organization Address [facility] Number [facility] [address] [place] [phone] * Magnesium (02/22/2022 3:14 PM EST) [facility] Magnesium 1.6 1.6 - 2.6 mg/dL [facility] 02/22/2022 3:14 PM EST 02/22/2022 3:19 PM EST [facility] External Provider LAB BLO OD ORDERABLES Final Result Performing Organization Address [facility] de Phone Number [facility] [address] [place] [phone] * (ABNORMAL) Basic Metabolic Panel (02/22/2022 3:14 PM EST) [facility] Sodium 136 135 - 145 mmol/L [facility] Potassium 4.4 3.3 - 5.1 mmol/L [facility] Chloride 103 96 - 108 mmol/L [facility] Carbon Dioxide 27 22 - 29 mmol/L [facility] Anion Gap 10(L) 12 - 20 [facility] Urea Nitrogen (BUN) 20(H) 9 - 16 mg/dL [facility] Creatinine, Serum 0.99 0.5 - 1.4 mg/dL [facility] Creatinine Clr Calc Pharmacy 50.6 [facility] Comment:Provided height and weight: 152.4 cm,64.5 kg.eGFR (calculated from the MDRD study equation) and eCrCl(calculated from the Cockcroft-Gault equation) are based ondifferent parameters and may not yield comparable results.If eCrCl result is absurd, please check patient'sheight/weight. Estimated Glomerular Filt Rate 57 [facility] Comment:NOTE: For -Am er[place] individuals, multiply the result by 1.210.Chronic Kidney Disease: Estimated GFR < 60 mL/min/1.12i3Otsiof Kidney Disease: Estimated GFR < 15 mL/min/1.73m2 Glucose 343(H) 60 - 115 mg/dL [facility] Calcium 9.3 8.4 - 10.2 mg/dL [facility] 02/22/2022 3:14 PM EST 02/22/2022 3:19 PM EST [facility] [facility] External Provider LAB BLO OD ORDERABLES Final Result [facility] [address] [place] [phone] * (ABNORMAL) Hepatic Function Panel (02/22/2022 3:14 PM EST) Bilirubin, Total 0.4 0.0 - 1.0 mg/dL [facility] Bilirubin, Direct <0.2 0.0 - 0.5 mg/dL [facility] Aspartate Amino Transferase 10 5 - 31 U/L [facility] Alanine Aminotransferase 6 0 - 31 U/L [facility] Total Protein 6.1(L) 6.5 - 8.0 g/dL [facility] Albumin Level 3.7 3.5 - 5.0 g/dL [facility] Alkaline Phosphatase 82 39 - 117 U/L [facility] 02/22/2022 3:14 PM EST 02/22/2022 3:19 PM EST [facility] External Provider LAB BLO OD ORDERABLES Final Result [facility] [address] [place] [address] [phone] * (ABNORMAL) CBC auto differential (02/22/2022 3:14 PM EST) White Blood Count 5.6 4.8 - 10.8 X10*3/uL [facility] Red Blood Count 3.99(L) 4.20 - 5.50 X10*6/uL [facility] Hemoglobin 11.8(L) 12.0 - 16.0 g/dl [facility] Hematocrit 35.1(L) 37.0 - 47.0 % [facility] Mean Corpuscular Volume 88.0 80.0 - 98.0 fL [facility] Mean Corpuscular Hemoglobin 29.6 27.0 - 33.0 pg [facility] Mean Corpuscular HGB Conc 33.6 31.0 - 35.0 g/dl [facility] Red Cell Distribution Width 13.2 11.0 - 16.0 % [facility] Platelet Count 265 160 - 400 X10*3/uL [facility] Mean Platelet Volume 10.0 9.4 - 12.3 fL [facility] Neutrophils Percent Auto 49.1 45 - 73 % [facility] Imm Gran Pct Auto 0.4 0.0 - 0.4 % [facility] Lymphocytes Percent Auto 40.1(H) 20 - 40 % [facility] Monocytes Percent Auto 6.1 2 - 11 % [facility] Eosinophils Percent Auto 3.4 0 - 4 % [facility] Basophils Percent Auto 0.9 0 - 2 % [facility] NRBC Pct Auto 0.0 0.0 - 0.2 /100WBC [facility] Neutrophils Absolute Auto 2.7 2.0 - 8.3 x10*3/uL [facility] Imm Gran Abs Auto 0.02 0.00 - 0.03 X10*3/uL [facility] Lymphocytes Absolute Auto 2.2 1.2 - 4.9 X10*3/uL [facility] Monocytes Absolute Auto 0.3 0.1 - 1.2 X10*3/uL [facility] Eosinophils Absolute Auto 0.2 0.0 - 0.4 X10*3/uL [facility] Basophils Absolute Auto 0.1 0.0 - 0.2 X10*3/uL [facility] NRBC Abs Auto 0.000 0.0 - 0.012 X10*3/uL [facility] 02/22/2022 3:14 PM EST 02/22/2022 3:19 PM EST [facility] External Provider LAB BLO OD ORDERABLES Final Result Performing Organization Address City/[facility]/ZIP Co de Phone Number [facility] [address] [place] [phone] * Culture, Urine, Routine (02/22/2022 12:00 AM EST) 02/22/2022 02/22/2022 5:2 3 PM EST Comment:CC Narrative [facility] - 02/24/2022 11:31 AM EST Urine Culture Report Result Urine Culture 10,000 to 50,000 cfu/ml Urine Culture Mixed bacterial benton characteristic of Urine Culture urogenital contamination. Specimen Source: Urine clean catch [facility] Exter nal Provider LAB MICROBIOLOGY - GENERAL ORDERABLES Final Result Performing Organization Address [facility] Co de Phone Number [facility] [address] [place] [phone] documented in this encounter Visit Diagnoses Not on filedocumented in this encounter Care Teams Public Health Social Worker Relationship Specialty Start Date End Date Radha Jamison DO [address] [place] [address] PCP - General Family Medicine 01/26/12 Abdias Murillo, PharmD [address] [place] [address] Pharmacist Internal Medicine 03/21/22 08/30/23 Nelia Sullivan, KeithD [address] [place] [address] Pharmacist Internal Medicine 08/31/23 Laurel Monterroso Home Health Occupational TherapistGas Pit Worker 10/27/22 Saige Aguilar 09/26/23 documented as of this encounter
--- OUTSIDE RECORDS SUMMARY | 2024-05-18 20:34 | XMS_ITS | Encounter Summary ---
Author Organization [employer] Address [address] [facility] 7t [place] [address] Care Team Providers Care Mechanical Technician Name Role Phone Radha Jamison DO Primary Care Provider +1- [phone] Nelia Sullivan PharmD Unavailable [phone] Reason for Visit * Reason Onset Date Comments Med Refill 05/07/2024 Encounter Details Date Type Department Care Team (Late st Contact Info) Description 05/07/[address] [facility] [address] [place], [place] [phone] Radha Jamison DO [address] [place], [place] [phone] Med Refill Social History Tobacco Use Types [...] with others, in a hotel, in a mcfp, living outside on the street, on a [...] the past 12 months, has t he [employer], gas, oil or water [employer] threatened to shut off services in your [...] encounter Miscellaneous Notes * Telephone Encounter - Sobeida Pederson - 05/07/2024 2:19 PM EDT TC from pt requesting medication refill. Medications needing refill : oxyCODONE (Roxicodone) 5 MG immediate release tablet To be sent to: [facility] documented in this encounter Plan of Treatment Upcoming Encounters Date Type Department Care Team (Late st Contact Info) Description 05/20/2024 11:45 AM EDT Office Visit [facility] [address] [place] [address] [phone] Radha Jamison DO [address] [place] [address] 06/14/2024 10:00 AM EDT Medication Management [facility] [address] [place] [address] [phone] Puia, Nelia, PharmD [address] [place] [address] 06/25/2024 9:45 AM EDT Office Visit [facility] [address] [place] [address] Radha Jamison DO [address] [place] [address] [phone] documented as of this encounter Goals Goal Patient Goal Type Associated Problems Recent Progress Patient-Stated? Author Record your blood pressure once per day Blood Pressure No Puia, Nelia, PharmD Blood Pressure < 140/90 Blood Pressure 138/62(2024 10:52 AM EDT) No Puia Nelia, PharmD Smoking cessation General No Puia Nelia, PharmD Patient will adhere to medication regimen General No Anaiia, Nelia, PharmD Hemoglobin A1c < 7 Result Component 10.6(03/05/19 25 12:27 PM EST) No Abdias Murillo PharmD Record your blood sugar as directed Result Component No Anaiia, Nelia, PharmD Note: Use CGM, ensuring sensor is scanned at least once every 8 hours to capture 24H data. Check BG manually, as directed. documented as of this encounter Visit Diagnoses Not on filedocumented in this encounter Additional Health Concerns Assessment Noted Time PHQ-9 Depression Total Score: 10 024 10:24 AM EST documented as of this encounter Care Teams Mechanical Technician Relationship Specialty Start Date End Date Radha Jamison DO [address] [place] [address] PCP - General Family Medicine 01/26/12 Puia, Nelia, PharmD [address] [place] [address] Pharmacist Internal Medicine 08/31/23 Laurel Monterroso Stock Parts FabricatorPanelboard Operator 10/27/22 Saige Aguilar 09/26/23 documented as of this encounter
--- OUTSIDE RECORDS SUMMARY | 2024-05-18 20:34 | XMS_ITS | Encounter Summary ---
Author Organization [facility] Address [address] [facility] 7t [place] [address] Care Team Providers Care Biostatistics Teacher Name Role Phone Radha Jamison DO Primary Care Provider [phone]- [phone] Abdias Murillo PharmD Unavailable Unavail able Nelia Sullivan PharmD Unavailable Reason for Visit * Reason Comments Med Refill Encounter Details Date Type Department Care Team (Late st Contact Info) Description 08/11/2022 Refill [facility] [address] [place] [address] Radha Jamison DO [address] [place] [address] Anemia, unspecified type Social History Tobacco Use [...] for patient to contact Mary Reynolds at [phone]. documented in this encounter Plan of Treatment Upcoming Encounters Date Type Department Care Team (Late st Contact Info) Description 05/20/2024 11:45 AM EDT Office Visit [address] [address] Radha Jamison DO [address] [place] [address] 06/14/2024 10:00 AM EDT Medication Management [address] [address] Nelia Sullivan PharmD [address] [place] [address] 06/25/2024 9:45 AM EDT Office Visit [address] [address] Radha Jamison DO [address] [place] [address] documented as of this encounter Goals Goal [...] documented as of this encounter Care Teams Biostatistics Teacher Relationship Specialty Start Date End Date Radha Jamison DO [address] [place] [address] PCP - General Family Medicine 01/26/12 Abdias Murillo, PharmD [address] [place] [address] Pharmacist Internal Medicine 03/21/22 08/30/23 Nelia Sullivan, KeithD [address] [place] [address] Pharmacist Internal Medicine 08/31/23 Laurel Monterroso BundlerDistribution Field Engineer 10/27/22 Saige Aguilar 09/26/23 documented as of this encounter
--- OUTSIDE RECORDS SUMMARY | 2024-05-18 20:34 | XMS_ITS | Encounter Summary ---
Author Organization [employer] Address [address] [facility] 7t [place] [address] Care Team Providers Care Inspector Machine Parts Name Role Phone Radha Jamison DO Primary Care Provider +1- [phone] Nelia Sullivan PharmD Unavailable [phone] Reason for Visit * Reason Comments Med Refill Encounter Details Date Type Department Care Team ([facility] st Contact Info) Description 11/21/2023 Refill [facility] [address] [place], [place] [phone] Radha Jamison DO [address] [place] [address] Chronic bilateral low back pain, unspecified whether [...] Description 05/20/2024 11:45 AM EDT Office Visit [address] [address] Radha Jamison DO [address] [place] [address] 06/14/2024 10:00 AM EDT Medication Management [address] [address] Nelia Sullivan, PharmD [address] [place] [address] 06/25/2024 9:45 AM EDT Office Visit [address] [address] Radha Jamison DO [address] [place] [address] documented as of this encounter Goals Goal [...] documented as of this encounter Care Teams Inspector Machine Parts Relationship Specialty Start Date End Date Radha Jamison DO [address] [place] [address] PCP - General Family Medicine 01/26/12 Nelia Sullivan PharmD [address] [place] [address] Pharmacist Internal Medicine 08/31/23 Laurel Monterroso Prepress StripperTrack Vehicle Repairer 10/27/22 Saige Aguilar 09/26/23 documented as of this encounter
--- OUTSIDE RECORDS SUMMARY | 2024-05-18 20:34 | XMS_ITS | Encounter Summary ---
Author Organization [employer] Address 75 [facility] 7t [place] [address] Care Team Providers Care Hydroelectric Plant Technician Name Role Phone Radha Jamison DO Primary Care Provider [phone] Abdias Murillo PharmD Unavailable Unavail able Nelia Sullivan PharmD Unavailable [phone] Reason for Visit * Reason Comments Med Refill Encounter Details Date Type Department Care Team (Late st Contact Info) Description 02/15/2023 Refill [facility] [address] [place], [place] [phone] Radha Jamison DO [address] [place] [address] Chronic bilateral low back pain, unspecified whether [...] Description 05/20/2024 11:45 AM EDT Office Visit [address] [address] Radha Jamison DO [address] [place] [address] 06/14/2024 10:00 AM EDT Medication Management [address] [address] Nelia Sullivan PharmD [address] [place] [address] 06/25/2024 9:45 AM EDT Office Visit [address] [address] Radha Jamison DO [address] [place] [address] documented as of this encounter Goals Goal [...] documented as of this encounter Care Teams Hydroelectric Plant Technician Relationship Specialty Start Date End Date Radha Jamison DO [address] [place] [address] PCP - General Family Medicine 01/26/12 Abdias Murillo, KeithD [address] [place] [address] Pharmacist Internal Medicine 03/21/22 08/30/23 Nelia Sullivan PharmD [address] [place] [address] Pharmacist Internal Medicine 08/31/23 Laurel Monterroso Construction ManagerVideo Game Designer 10/27/22 Saige Aguilar 09/26/23 documented as of this encounter
--- OUTSIDE RECORDS SUMMARY | 2024-05-18 20:34 | XMS_ITS | Encounter Summary ---
Author Organization [employer] Address [address] [facility] 7t [place] [address] Care Team Providers Care Gold Assayer Name Role Phone Radha Jamison DO Primary Care Provider [phone]- [phone] Abdias Murillo PharmD Unavailable Unavail able Nelia Sullivan PharmD Unavailable [phone] Reason for Visit * Reason Comments Med Refill Encounter Details Date Type Department Care Team (Late st Contact Info) Description 08/01/[address] [facility] [address] [place], [place] [phone] Radha Jamison DO [address] [place] [address] Chronic bilateral low back pain, unspecified whether [...] Description 05/20/2024 11:45 AM EDT Office Visit [address] [address] Radha Jamison DO [address] [place] [address] 06/14/2024 10:00 AM EDT Medication Management [address] [address] Nelia Sullivan PharmD [address] [place] [address] 06/25/2024 9:45 AM EDT Office Visit [address] [address] Radha Jamison DO [address] [place] [address] documented as of this encounter Goals Goal Patient Goal Type Associated Problems Recent Progress Patient-Stated? Author Hemoglobin A1c < 7 Result Component 10.6( 12:27 PM EST) Abdias Owens, PharmD documented as of this encounter Visit Diagnoses Diagnosis Chronic bilateral low back pain, unspecified whether sciatica present documented in this encounter Additional Health Concerns Assessment Noted Time PHQ-9 Depression Total Score: 4 11/09/19 23 11:27 AM EDT documented as of this encounter Care Teams Gold Assayer Relationship Specialty Start Date End Date Radha Jamison DO [address] [place] [address] PCP - General Family Medicine 01/26/12 Abdias Murillo PharmD [address] [place] [address] Pharmacist Internal Medicine 03/21/22 08/30/23 Nelia Sullivan PharmD [address] [place] [address] Pharmacist Internal Medicine 08/31/23 Laurel Monterroso Wearing Apparel ShakerSenior Geologist 10/27/22 Saige Aguilar 09/26/23 documented as of this encounter
--- OUTSIDE RECORDS SUMMARY | 2024-05-18 20:34 | XMS_ITS | Encounter Summary ---
Author Organization [facility] Address [address] [facility] 7t [place] [address] Care Team Providers Care Dressed Poultry Grader Name Role Phone Radha Jamison DO Primary Care Provider [phone] DelAbdias hardy PharmD Unavailable Unavail able Nelia Sullivan PharmD Unavailable Reason for Visit * Reason Comments Med Refill Encounter Details Date Type Department Care Team (Late Contact Info) Description 01/31/2022 Refill [facility] [address] [place] [address] Radha Jamison DO [address] [place] [address] Chronic bilateral low back pain, unspecified whether [...] Description 05/20/2024 11:45 AM EDT Office Visit [facility] [address] [place] [address] Radha Jamison DO 230 [facility] [place] [address] 06/14/2024 10:00 AM EDT Medication Management [facility] [place] [address] Nelia Sullivan, [place] [address] 06/25/2024 9:45 AM EDT Office Visit [facility] [place] [address] Radha Jamison DO [address] [place] [address] documented as of this encounter Visit Diagnoses Diagnosis Chronic bilateral low back pain, unspecified whether sciatica present documented in this encounter Care Teams Dressed Poultry Grader Relationship Specialty Start Date End Date [place] [address] PCP - General Family Medicine 01/26/12 Abdias Murillo, KeithD [facility] [place] [address] Pharmacist Internal Medicine 03/21/22 08/30/23 Nelia Sullivan, PharmD [facility] [place] [address] Pharmacist Internal Medicine 08/31/23 Laurel Monterroso Linoleum PrinterSenior It Business Analyst 10/27/22 Saige Aguilar 09/26/23 documented as of this encounter
--- OUTSIDE RECORDS SUMMARY | 2024-05-18 20:34 | XMS_ITS | Encounter Summary ---
Author Organization [employer] Address [address] [facility] 7t [place] [address] Care Team Providers Care Silk Soaker Name Role Phone Radha Jamison DO Primary Care Provider [phone]- [phone] Abdias Murillo PharmD Unavailable Unavail able Nelia Sullivan PharmD Unavailable [phone] Reason for Visit * Reason Comments Med Refill Encounter Details Date Type Department Care Team (Late st Contact Info) Description 03/14/2023 Refill [facility] [address] [place], [place] [phone] Radha Jamison DO [address] [place] [address] Chronic bilateral low back pain, unspecified whether [...] Description 05/20/2024 11:45 AM EDT Office Visit [address] [address] Radha Jamison DO [address] [place] [address] 06/14/2024 10:00 AM EDT Medication Management [address] [address] Nelia Sullivan PharmD [address] [place] [address] 06/25/2024 9:45 AM EDT Office Visit [address] [address] Radha Jamison DO [address] [place] [address] documented as of this encounter Goals Goal [...] documented as of this encounter Care Teams Silk Soaker Relationship Specialty Start Date End Date Radha Jamison DO [address] [place] [address] PCP - General Family Medicine 01/26/12 Abdias Murillo, KeithD [address] [place] [address] Pharmacist Internal Medicine 03/21/22 08/30/23 Nelia Sullivan PharmD [address] [place] [address] Pharmacist Internal Medicine 08/31/23 Laurel Monterroso Machinist Job SetterCorrection Lieutenant 10/27/22 Saige Aguilar 09/26/23 documented as of this encounter
--- OUTSIDE RECORDS SUMMARY | 2024-05-18 20:34 | XMS_ITS | Encounter Summary ---
Author Organization [employer] Address 75 [facility] 7t [place] [address] Care Team Providers Care Infectious Disease Physician Name Role Phone Radha Jamison DO Primary Care Provider [phone]- [phone] Abdias Murillo PharmD Unavailable Unavail able Nelia Sullivan PharmD Unavailable [phone] Reason for Visit * Reason Comments Med Refill Encounter Details Date Type Department Care Team (Late st Contact Info) Description 06/06/2023 Refill [facility] 230 [place] [address] Radha Jamison DO [address] [place] [address] Chronic bilateral low back pain, unspecified whether [...] Description 05/20/2024 11:45 AM EDT Office Visit [address] [address] Radha Jamison DO [address] [place] [address] 06/14/2024 10:00 AM EDT Medication Management [address] [address] Nelia Sullivan PharmD [address] [place] [address] 06/25/2024 9:45 AM EDT Office Visit [address] [address] Radha Jamison DO [address] [place] [address] documented as of this encounter Goals Goal [...] documented as of this encounter Care Teams Infectious Disease Physician Relationship Specialty Start Date End Date Radha Jamison DO [address] [place] [address] PCP - General Family Medicine 01/26/12 Abdias Murillo, KeithD [address] [place] [address] Pharmacist Internal Medicine 03/21/22 08/30/23 Nelia Sullivan PharmD [address] [place] [address] Pharmacist Internal Medicine 08/31/23 Laurel Monterroso Green Hide InspectorReverse Unit Operator 10/27/22 Saige Aguilar 09/26/23 documented as of this encounter
--- OUTSIDE RECORDS SUMMARY | 2024-05-18 20:34 | XMS_ITS | Encounter Summary ---
Author Organization [employer] Address [address] [facility] 7t [place] [address] Care Team Providers Care Creative Guru Name Role Phone Radha Jamison DO Primary Care Provider [phone] Abdias Murillo PharmD Unavailable Unavail able Nelia Sullivan PharmD Unavailable [phone] Reason for Visit * Reason Comments Med Refill Encounter Details Date Type Department Care Team (Late st Contact Info) Description 12/21/2022 Refill [facility] [address] [place] [address] Radha Jamison DO [address] [place] [address] Chronic bilateral low back pain, unspecified whether [...] Description 05/20/2024 11:45 AM EDT Office Visit [address] [address] Radha Jmaison DO [address] [place] [address] 06/14/2024 10:00 AM EDT Medication Management [address] [address] Nelia Sullivan PharmD [address] [place] [address] 06/25/2024 9:45 AM EDT Office Visit [address] [address] Radha Jamison DO [address] [place] [address] documented as of this encounter Goals Goal [...] documented as of this encounter Care Teams Creative Guru Relationship Specialty Start Date End Date Radha Jamison DO [address] [place] [address] PCP - General Family Medicine 01/26/12 Abdias Murillo, KeithD [address] [place] [address] Pharmacist Internal Medicine 03/21/22 08/30/23 Nelia Sullivan PharmD [address] [place] [address] Pharmacist Internal Medicine 08/31/23 Laurel Monterroso Sharepoint DeveloperRetail Office Associate 10/27/22 Saige Aguilar 09/26/23 documented as of this encounter
--- OUTSIDE RECORDS SUMMARY | 2024-05-18 20:34 | XMS_ITS | Encounter Summary ---
Author Organization [employer] Address [address] [facility] 7t [place] [address] Care Team Providers Care Crisis Intervention Specialist Name Role Phone Radha Jamison DO Primary Care Provider Abdias Murillo PharmD Unavailable Unavail able Nelia Sullivan PharmD Unavailable Encounter Details Date Type Department Care Team ([facility] st Contact Info) Description 10/10/2022 Telephone [facility] MEDICINE [address] [place] [address] Radha Jamison DO [address] [place] [address] Social History Tobacco Use Types Packs/Day Years [...] Description 05/20/2024 11:45 AM EDT Office Visit [address] [address] Radha Jamison DO [address] [place] [address] 06/14/2024 10:00 AM EDT Medication Management [address] [address] Nelia Sullivan PharmD [address] [place] [address] 06/25/2024 9:45 AM EDT Office Visit [address] [address] Radha Jamison DO [address] [place] [address] documented as of this encounter Goals Goal [...] documented as of this encounter Care Teams Crisis Intervention Specialist Relationship Specialty Start Date End Date Radha Jamison DO [address] [place] [address] PCP - General Family Medicine 01/26/12 Abdias Murillo, PharmD [address] [place] [address] Pharmacist Internal Medicine 03/21/22 08/30/23 Nelia Sullivan PharmD [facility] [place] [address] Pharmacist Internal Medicine 08/31/23 Laurel Monterroso Correctional Security OfficerAluminum Hydroxide Process Operator 10/27/22 Saige Aguilar 09/26/23 documented as of this encounter
--- OUTSIDE RECORDS SUMMARY | 2024-05-18 20:34 | XMS_ITS | Encounter Summary ---
Author Organization [employer] Address 75 [facility] 7t [place] [address] Care Team Providers Care Electrical Design Engineer Name Role Phone Radha Jamison DO Primary Care Provider +1- [phone] Nelia Sullivan PharmD Unavailable [phone] Encounter Details Date Type Department Care Team ([facility] st Contact Info) Description 01/30/2024 Telephone [facility] [address] [place], [place] [phone] Radha Jamison DO 230 [facility] [place] [address] Social History Tobacco Use Types Packs/Day Years [...] Description 05/20/2024 11:45 AM EDT Office Visit [facility] MEDICINE [address] [place] [address] Radha Jamison DO [address] [place] [address] 06/14/2024 10:00 AM EDT Medication Management [address] [address] Nelia Sullivan, Camron [address] [place] [address] 06/25/2024 9:45 AM EDT Office Visit [address] [place] [address] Radha Jamison DO 230 [place] [address] documented as of this encounter Goals Goal Patient Goal Type Associated Problems Recent Progress Patient-Stated? Author Record your blood pressure once per day Blood Pressure No Puia, Nelia, PharmD Blood Pressure < 140/90 Blood Pressure 138/62(2024 10:52 AM EDT) No Puia, Nelia, PharmD Smoking cessation General No Puia, Nelia, PharmD Patient will adhere to medication regimen General No Puia, Nelia, PharmD Hemoglobin A1c < 7 Result Component 10.6(03/05/19 12:27 PM EST) No Abdias Murillo, PharmD [...] documented as of this encounter Care Teams Electrical Design Engineer Relationship Specialty Start Date End Date Radha Jamison DO [address] [place] [address] PCP - General Family Medicine 01/26/12 Puia, Nelia, PharmD [address] [place] [address] Pharmacist Internal Medicine 08/31/23 Laurel Monterroso [employer] Flatbed DriverDeckhand Shrimp Boat 10/27/22 Saige Aguilar 09/26/23 documented as of this encounter
--- OUTSIDE RECORDS SUMMARY | 2024-05-18 20:34 | XMS_ITS | Encounter Summary ---
Author Organization [employer] Address 75 [facility] 7t [place] [address] Care Team Providers Care Field Care Advocate Name Role Phone Radha Jamison DO Primary Care Provider +1- [phone] Nelia Sullivan PharmD Unavailable [phone] Reason for Visit * Reason Comments Med Refill Encounter Details Date Type Department Care Team ([facility] st Contact Info) Description 10/30/2023 Refill [facility] MEDICINE 230 [place], [place] [phone] Radha Jamison DO 230 [place] [address] Chronic bilateral low back pain, unspecified whether [...] Description 05/20/2024 11:45 AM EDT Office Visit [address] [address] Radha Jamison DO [address] [place] [address] 06/14/2024 10:00 AM EDT Medication Management [address] [address] Nelia Sullivan, PharmD [address] [place] [address] 06/25/2024 9:45 AM EDT Office Visit [address] [address] Radha Jamison DO [address] [place] [address] documented as of this encounter Goals Goal [...] as of this encounter Care Teams Field Care Advocate Relationship Specialty Start Date End Date Radha Jamison DO 230 [place] [address] PCP - General Family Medicine 01/26/12 Nelia Sullivan PharmD 230 [place] [address] Pharmacist Internal Medicine 08/31/23 Laurel Monterroso Design DrafterCenter Line Cutter Operator 10/27/22 Saige Aguilar 09/26/23 documented as of this encounter
--- OUTSIDE RECORDS SUMMARY | 2024-05-18 20:34 | XMS_ITS | Encounter Summary ---
Author Organization [employer] Address 75 [facility] 7t [place] [address] Care Team Providers Care Theology Professor Name Role Phone Radha Jamison DO Primary Care Provider +1- [phone] Abdias Murillo PharmD Unavailable Unavail able Nelia Sullivan PharmD Unavailable [phone] Reason for Visit * Reason Comments Med Refill Encounter Details Date Type Department Care Team (Late st Contact Info) Description 02/14/2023 Refill [facility] MEDICINE 230 [place], [place] [phone] Radha Jamison DO 230 [place] [address] Chronic bilateral low back pain, unspecified whether [...] Description 05/20/2024 11:45 AM EDT Office Visit [address] [address] Radha Jamison DO [address] [place] [address] 06/14/2024 10:00 AM EDT Medication Management [address] [address] Nelia Sullivan PharmD [address] [place] [address] 06/25/2024 9:45 AM EDT Office Visit [address] [address] Radha Jamison DO [address] [place] [address] documented as of this encounter Goals Goal [...] documented as of this encounter Care Teams Theology Professor Relationship Specialty Start Date End Date Radha Jamison DO 230 [place] [address] PCP - General Family Medicine 01/26/12 Abdias Murillo, KeithD 230 [place] [address] Pharmacist Internal Medicine 03/21/22 08/30/23 Nelia Sullivan PharmD 230 [place] [address] Pharmacist Internal Medicine 08/31/23 Laurel Monterroso Roof ForemanInternational Representative 10/27/22 Saige Aguilar 09/26/23 documented as of this encounter
--- OUTSIDE RECORDS SUMMARY | 2024-05-18 20:34 | XMS_ITS | Encounter Summary ---
Author Organization [employer] Address 75 [facility] 7t [place] [address] Care Team Providers Care Carton Marker Machine Name Role Phone Radha Jamison DO Primary Care Provider +1- [phone] Abdias Murillo PharmD Unavailable Unavail able Nelia Sullivan PharmD Unavailable Reason for Visit * Reason Onset Date Comments Med Refill 10/18/2022 Encounter Details Date Type Department Care Team (Late st Contact Info) Description 10/18/2022 Telephone [facility] MEDICINE 230 [place] [address] Radha Jamison DO 230 [place] [address] Med Refill Social History Tobacco Use Types [...] PCP needed re:controlled medication. Pt's hx with [facility] appts is as follows: 05/05: Pt short [...] team nurses. Any questions, contact pt at [phone] (Tanzanian) * Telephone Encounter - Acacia Chakraborty RN [...] Description 05/20/2024 11:45 AM EDT Office Visit [address] [address] Radha Jamison DO 230 [place] [address] 06/14/2024 10:00 AM EDT Medication Management [address] [address] Nelia Sullivan PharmD [address] [place] [address] 06/25/2024 9:45 AM EDT Office Visit [address] [address] Radha Jamison DO 230 [place] [address] documented as of this encounter Goals Goal [...] documented as of this encounter Care Teams Carton Marker Machine Relationship Specialty Start Date End Date Radha Jamison DO [address] [place] [address] PCP - General Family Medicine 01/26/12 Abdias Murillo, PharmD [address] [place] [address] Pharmacist Internal Medicine 03/21/22 08/30/23 Nelia Sullivan, PharmD [address] [place] [address] Pharmacist Internal Medicine 08/31/23 Laurel Monterroso Dental Laboratory Technology TeacherAccounting Office Manager 10/27/22 Saige Aguilar 09/26/23 documented as of this encounter
--- OUTSIDE RECORDS SUMMARY | 2024-05-18 20:34 | XMS_ITS | Encounter Summary ---
Author Organization [employer] Address 75 [facility] 7t [place] [address] Care Team Providers Care Food Service Lead Name Role Phone Radha Jamison DO Primary Care Provider +1- [phone] Nelia Sullivan PharmD Unavailable [phone] Reason for Visit * Reason Comments Med Refill Encounter Details Date Type Department Care Team ([facility] st Contact Info) Description 05/17/2024 Refill [facility] MEDICINE 230 [place], [place] [phone] Radha Jamison DO 230 [place] [address] Chronic bilateral low back pain, unspecified whether [...] the past 12 months, has t he Hipbone, gas, oil or water [employer] threatened to shut off services in your [...] Description 05/20/2024 11:45 AM EDT Office Visit [facility] MEDICINE [address] [place] [address] Radha Jamison DO [address] [place] [address] 06/14/2024 10:00 AM EDT Medication Management [facility] MED[facility]INE [address] [place] [address] Nelia Sullivan, PharmD [address] [place] [address] 06/25/2024 9:45 AM EDT Office Visit [address] [address] Radha Jamison, [address] [place] [address] documented as of this encounter Goals Goal [...] documented as of this encounter Care Teams Food Service Lead Relationship Specialty Start Date End Date Radha Jamison DO 230 [place] [address] PCP - General Family Medicine 01/26/12 Nelia Sullivan, PharmD 230 [place] [address] Pharmacist Internal Medicine 08/31/23 Laurel Monterroso Planning RnSeo Marketing Specialist 10/27/22 Saige Aguilar 09/26/23 documented as of this encounter
--- OUTSIDE RECORDS SUMMARY | 2024-05-18 20:35 | XMS_ITS | Encounter Summary ---
Author Organization [facility] Address 75 [facility] 7t [place] [address] Care Team Providers Care Imaging Assistant Name Role Phone Radha Jamison DO Primary Care Provider +1- [phone] Abdias Murillo PharmD Unavailable Unavail able Nelia Sullivan PharmD Unavailable Reason for Visit * Reason Comments Med Refill Encounter Details Date Type Department Care Team (Late Contact Info) Description 07/20/2022 Refill [facility] 230 [place] [address] Radha Jamison DO 230 [place] [address] Hypertension, unspecified type Social History Tobacco Use [...] Office Visit [facility] [place] [address] Radha Jamison DO [facility] [place] [address] 06/14/2024 10:00 AM EDT Medication Management [facility]reet [facility] [place] [address] Nelia Sullivan PharmAdrian [facility] [place] [address] 06/25/2024 9:45 AM EDT Office Visit [facility] [place] [phone] Radha Jamison DO [facility] [place] [address] documented as of this encounter Goals Goal [...] documented as of this encounter Care Teams Imaging Assistant Relationship Specialty Start Date End Date Radha Jamison DO [facility] [place] [address] PCP - General Family Medicine 01/26/12 Abdias Murillo, PharmD [address] [place] [address] [place] Pharmacist Internal Medicine 03/21/22 08/30/23 Nelia Sullivan, [place] [address] Pharmacist Internal Medicine 08/31/23 Laurel Monterroso Professor Of VoiceOutside Repairer Special 10/27/22 Saige Aguilar 09/26/23 documented as of this encounter
--- OUTSIDE RECORDS SUMMARY | 2024-05-18 20:35 | XMS_ITS | Encounter Summary ---
Author Organization [facility] Address 75 [facility] 7t [place] [address] Care Team Providers Care Core Drill Operator Helper Name Role Phone ShaheenRadha Primary Care Provider +1- [phone] Abdias Murillo PharmD Unavailable Unavail able Nelia Sullivan PharmD Unavailable Reason for Visit * Reason Onset Date Comments Med Refill Appointment 05/15/2022 Re: her appt for today as [id number] @ 10:15 am. & No active phone # at this time. Encounter Details Date Type Department Care Team (Late st Contact Info) Description 05/15/2022 Refill [facility] MEDICINE 230 [place] [address] Abdias Murillo, PharmD Type 2 diabetes mellitus with other specified complication, with long-term current use of insulin ([facility] Social History Tobacco Use Types Packs/Day [...] Miscellaneous Notes * Telephone Encounter - Monica Layne - 05/16/2022 9:46 AM EDT T/C placed to pt regarding her appt for today as [id number] @ 10:15 am. And her phone # is not active at this time. documented in this encounter Plan of Treatment Upcoming Encounters Date Type Department Care Team (Late st Contact Info) Description 05/20/2024 11:45 AM EDT Office Visit [address] [address] Radha Jamison DO [address] [place] [address] 06/14/2024 10:00 AM EDT Medication Management [address] [address] Nelia Sullivan PharmD [address] [place] [address] 06/25/2024 9:45 AM EDT Office Visit [address] [address] Radha Jamison DO [address] [place] [address] documented as of this encounter Goals Goal Patient Goal Type Associated Problems Recent Progress Patient-Stated? Author Hemoglobin A1c < 7 Result Component 10.6( 5 12:27 PM EST) No Abdias Murillo, KeithD documented as of this encounter Visit Diagnoses Diagnosis Type 2 diabetes mellitus with other specified complication, with long-term current use of insulin ([facility]) documented in this encounter Additional Health Concerns Assessment Noted Time PHQ-9 Depression Total Score: 14 023 12:00 PM EST documented as of this encounter Care Teams Core Drill Operator Helper Relationship Specialty Start Date End Date Radha Jamison DO [address] [place] [address] PCP - General Family Medicine 01/26/12 Abdias Murillo, PharmD 230 [place] [address] Pharmacist Internal Medicine 03/21/22 08/30/23 Nelia Sullivan, KeithD 230 [place] [address] Pharmacist Internal Medicine 08/31/23 Laurel Monterroso Drawer In Dobby LoomFamily Medicine Resident 10/27/22 Saige Aguilar 09/26/23 documented as of this encounter
--- OUTSIDE RECORDS SUMMARY | 2024-05-18 20:35 | XMS_ITS | Encounter Summary ---
Author Organization [employer] [facility] Address 75 [facility] 7t [place] [address] Care Team Providers Care Job Setter Honing Name Role Phone Radha Jamison DO Primary Care Provider +1- [phone] DelAbdias hardy PharmD Unavailable Unavail able Nelia Sullivan PharmD Unavailable Reason for Visit * Reason Comments Med Refill Encounter Details Date Type Department Care Team (Late st Contact Info) Description 06/10/[address] [facility] MEDICINE 230 [place] [address] Radha Jamison DO 230 [place] [address] Chronic bilateral low back pain, unspecified whether [...] Description 05/20/2024 11:45 AM EDT Office Visit [place] [address] Radha Jamison DO 230 [place] [address] 06/14/2024 10:00 AM EDT Medication Management [address] [address] Nleia [place] [address] 06/25/2024 9:45 AM EDT Office Visit [facility]reet [facility] [place] [address] Radha Jamison DO 230 [place] [address] documented as of this encounter Goals Goal [...] documented as of this encounter Care Teams Job Setter Honing Relationship Specialty Start Date End Date Radha Jamison DO [address] [place] [address] PCP - General Family Medicine 01/26/12 Abdias Murillo, PharmD [address] [place] [address] Pharmacist Internal Medicine 03/21/22 08/30/23 Nelia Sullivan, KeithD [address] [place] [address] Pharmacist Internal Medicine 08/31/23 Laurel Monterroso Ornamental Brick InstallerHuman Geography Faculty Member 10/27/22 Saige Aguilar 09/26/23 documented as of this encounter
[2024-05-18 20:49] LABS: MANUAL DIFF FLAG NO
[2024-05-18 20:50] LABS: Basophils Percent Auto 0.6 % (0-2); Eosinophils Absolute Auto 0.1 X10*3/uL (0.0-0.4); Eosinophils Percent Auto 1.3 % (0-4); Hematocrit 31.8 % (37.0-47.0); Hemoglobin 10.3 g/dl (12.0-16.0); Imm Gran Abs Auto 0.02 X10*3/uL (0.00-0.03); Imm Gran Pct Auto 0.4 % (0.0-0.4); Lymphocytes Absolute Auto 0.9 X10*3/uL (1.2-4.9); Lymphocytes Percent Auto 17.5 % (20-40); Mean Corpuscular HGB Conc 32.4 g/dl (31.0-35.0); Mean Corpuscular Hemoglobin 28.9 pg (27.0-33.0); Mean Corpuscular Volume 89.1 fL (80.0-98.0); Mean Platelet Volume 9.1 fL (9.4-12.3); Monocytes Absolute Auto 0.6 X10*3/uL (0.1-1.2); Monocytes Percent Auto 10.9 % (2-11); Neutrophils Absolute Auto 3.6 x10*3/uL (2.0-8.3); Neutrophils Percent Auto 69.3 % (45-73); Platelet Count 243 X10*3/uL (160-400); Red Blood Count 3.57 X10*6/uL (4.20-5.50); Red Cell Distribution Width 13.5 % (11.0-16.0); White Blood Count 5.3 X10*3/uL (4.8-10.8)
[2024-05-18 21:06] LABS: Alanine Aminotransferase < 6 U/L (0-31); Albumin Level 3.1 g/dL (3.5-5.0); Alkaline Phosphatase 77 U/L (39-117); Anion Gap 11 (12-20); Aspartate Amino Transferase 18 U/L (5-31); Bilirubin Total 0.2 mg/dL (0.0-1.0); Blood Urea Nitrogen 14 mg/dL (9-16); Calcium 8.3 mg/dL (8.4-10.2); Carbon Dioxide 27 mmol/L (22-29); Chloride 107 mmol/L (96-108); Creatinine Clr Calc Pharmacy 52.4; Estimated Glomerular Filt Rate 60; Glucose Random 169 mg/dL (60-115); Potassium 4.4 mmol/L (3.3-5.1); Sodium 141 mmol/L (135-145); Total Protein 5.7 g/dL (6.5-8.0)
[2024-05-18] MEDS: guaiFEN/Codeine SF 200/20/10ML 10 ML LIQUID PO (21:09)
[2024-05-18 21:11] LABS: Troponin-I High Sensitivity 11.4 ng/L (<3.5-17.0)
[2024-05-18 21:30] LABS: Influenza A PCR POSITIVE (Negative); Influenza B PCR NEGATIVE (Negative); Resp Syncy Virus RNA Qual PCR NEGATIVE (Negative); SARS COV2 PCR INHOUSE NEGATIVE (Negative)
[2024-05-18 22:40] VITALS: BP 183/71; PULSE 86; RESP 16; TEMP 36.9; O2SAT 92
[2024-05-18] MEDS: Ibuprofen 600 MG TABLET PO (22:46)
[2024-05-18] MEDS: Butalb/Acetamin/Caff 50/325/40 TABLET 1 TAB PO (22:46)
[2024-05-18] MEDS: Oseltamivir Phosphate 75 MG CAPSULE PO (22:46)
[2024-05-18 22:55] VITALS: BP 163/71; PULSE 86; RESP 16; TEMP 36.9; O2SAT 95
[2024-05-18 22:56] VITALS: BP 163/71; PULSE 86; RESP 16; TEMP 36.9; O2SAT 95
== END 2024-05-18 22:58 | disposition home or self-care (01) ==
PROVIDERS: Emergency Provider Internal Medicine; PCP Family Medicine
DX: J10.1 Influenza due to other identified influenza virus with other respiratory manifestations (principal); G43.909 Migraine, unspecified, not intractable, without status migrainosus; R07.9 Chest pain, unspecified; R05.9 Cough, unspecified; Z03.818 Encounter for observation for suspected exposure to other biological agents ruled out
CPT/HCPCS: 0241U; 36415; 71045; 80053; 84484; 85025; 93005; 99283; 99285

== ENCOUNTER → 2024-05-18 20:11 | Outpatient (BNV) | payer MEDICAID, SELFPAY | PROVIDERS: Emergency Provider Internal Medicine; PCP Family Medicine; Visit Provider Internal Medicine | DX: R94.31 Abnormal electrocardiogram [ECG] [EKG] (principal); R07.9 Chest pain, unspecified | CPT/HCPCS: 93010 ==

== ENCOUNTER → 2024-05-18 20:39 | Outpatient (BNV) | payer MEDICAID, SELFPAY | PROVIDERS: Emergency Provider Internal Medicine; PCP Family Medicine; Visit Provider Specialist | DX: R05.9 Cough, unspecified (principal) | CPT/HCPCS: 71045 ==

== ENCOUNTER 2024-05-29 09:55 | Outpatient (REF) | payer MEDICAID, SELFPAY ==
--- NOTE | ~2024-05-29 | US_ITS ---
EXAMINATION: NONINVASIVE ASSESSMENT OF THE BILATERAL LOWER EXTREMITIES WITH ARTERIAL DUPLEX ). CLINICAL INFORMATION: Peripheral vascular disease. Hypertension. Hyperlipidemia. Diabetes. Status post left femoropopliteal bypass. TECHNIQUE: Duplex Doppler techniques with waveform analysis and measurement of velocities in the bilateral common femoral, profunda femoris, superficial femoral, popliteal and tibial arteries were performed. . The study was performed only at rest. COMPARISON: October 18, 2022 demonstrated chronic occluded right superficial femoral artery and left superficial femoral artery. Patent femoral bypass graft FINDINGS: DIRECT DUPLEX DOPPLER FINDINGS: RIGHT LEG: Common femoral artery: 307 cm/s, phasicity: Monophasic. Profunda femoris artery: 260 cm/s, phasicity: Monophasic. Superficial femoral artery (proximal): 21 cm/s, phasicity: Monophasic. Superficial femoral artery (mid): No color Doppler flow. Superficial femoral artery (distal): 29 cm/s, phasicity: Monophasic. Popliteal artery: 91 cm/s, phasicity: Monophasic. Posterior tibial artery: 21 cm/s, phasicity: Monophasic. Peroneal artery: 17 cm/s, phasicity: Monophasic. Anterior tibial artery: 9 cm/s, phasicity: Monophasic. Dorsalis pedis artery: 16 cm/s, phasicity:Monophasic. LEFT LEG: Common femoral artery: 152 cm/s, phasicity: Biphasic. Profunda femoris artery: 161 cm/s, phasicity: Monophasic. Superficial femoral artery (proximal): No color Doppler flow . Superficial femoral artery (mid): No color Doppler flow. Superficial femoral artery (distal): No color Doppler flow. Popliteal artery: 151 cm/s, phasicity: Biphasic. Posterior tibial artery: 7 cm/s, phasicity: Monophasic. Peroneal artery: 38 cm/s, phasicity: Biphasic. Anterior tibial artery: 21 cm/s, phasicity: Monophasic. Dorsalis pedis artery: 22 cm/s, phasicity: Monophasic. Left femoral popliteal bypass is patent with inflow peak systolic velocity 195 cm/s, 275 cm/s in the proximal segment and at the anastomosis 63 cm/s. US/US arterial duplex LE BI IMPRESSION: Right leg: Occluded right superficial femoral artery. Severe inflow disease in the interrogated vessels. Left leg: Occluded superficial femoral artery. Severe inflow disease in the interrogated vessels. Patent left femoral-popliteal bypass. Electronically signed by: Sam Early MD 05/29/2024 03:55 PM EDT RP
--- OUTSIDE RECORDS SUMMARY | 2024-05-29 11:18 | XMS_ITS | Encounter Summary ---
Author Organization [email or web address] Address 75 [facility] 7t [place] [address] Care Team Providers Care Tobacco Stemmer Machine Name Role Phone Radha Jamison DO Primary Care Provider +1- [phone] Nelia Sullivan PharmD Unavailable [phone] Reason for Visit * Reason Comments Med Refill Encounter Details Date Type Department Care Team ([facility] st Contact Info) Description 02/29/2024 Refill [facility] MEDICINE 230 [place], [place] [phone] Radha Jamison DO 230 [place] [address] Chronic bilateral low back pain, unspecified whether [...] with others, in a hotel, in a longterm, living outside on the street, on a [...] the past 12 months, has t he Guarnic, gas, oil or water [employer] threatened to shut off services in your [...] until seen by PCP or seen by DISTRICT ENGINEER. Scheduled DISTRICT ENGINEER 03/05/24. documented in this encounter Plan of Treatment Upcoming Encounters Date Type Department Care Team (Late st Contact Info) Description 06/14/2024 10:00 AM EDT Medication Management [facility] MEDICINE [address] [place] [address] Nelia Sullivan, KeithD 230 [place] [address] 06/25/2024 9:45 AM EDT Office Visit [facility] MEDICINE [address] [place] [address] Radha Jamison DO 230 [place] [address] documented as of this encounter Goals Goal Patient Goal Type Associated Problems Recent Progress Patient-Stated? Author Record your blood pressure once per day Blood Pressure No Nelia Sullivan, PharmD Blood Pressure < 140/90 Blood Pressure 160/70(2024 12:28 PM EDT) No Nelia Sullivan, PharmD Smoking cessation General No Nelia Sullivan, PharmD Patient will adhere to medication regimen General No Nelia Sullivan, PharmD Hemoglobin A1c < 7 Result Component 10.3(05/25/19 12:32 PM EDT) No Abdias Murillo PharmD Record your blood sugar as directed Result Component No Nelia uSllivan PharmD Note: Use CGM, ensuring sensor is [...] documented as of this encounter Care Teams Tobacco Stemmer Machine Relationship Specialty Start Date End Date Radha Jamison DO 230 [place] [address] PCP - General Family Medicine 01/26/12 Nelia Sullivan, PharmD 230 [place] [address] Pharmacist Internal Medicine 08/31/23 Laurel Monterroso Obstetrician And GynaecologistProfessional Soccer Player 10/27/22 Saige Aguilar 09/26/23 documented as of this encounter
--- OUTSIDE RECORDS SUMMARY | 2024-05-29 11:18 | XMS_ITS | Encounter Summary ---
Author Organization [employer] Address 75 [facility] 7t [place] [address] Care Team Providers Care Edger Operator Name Role Phone Radha Jamison DO Primary Care Provider +1- [phone] Nelia Sullivan PharmD Unavailable [phone] Reason for Visit * Reason Comments Med Refill Encounter Details Date Type Department Care Team ([facility] Contact Info) Description 03/05/2024 Telephone [facility] MEDICINE 230 [place], [place] [phone] Radha Jamison DO 230 [place] [address] Med Refill Social History Tobacco Use Types [...] with others, in a hotel, in a halfway, living outside on the street, on a [...] Description 06/14/2024 10:00 AM EDT Medication Management [facility] MEDICINE [address] [place] [address] Nelia Sullivan, PharmD [address] [place] [address] 06/25/2024 9:45 AM EDT Office Visit [facility] MEDICINE [address] [place] [address] Rdaha Jamison DO 230 [place] [address] documented as of this encounter Goals Goal Patient Goal Type Associated Problems Recent Progress Patient-Stated? Author Record your blood pressure once per day Blood Pressure No Puia, Nelia, PharmD Blood Pressure < 140/90 Blood Pressure 160/70(2024 12:28 PM EDT) No Puia, Nelia, PharmD Smoking cessation General No Puia, Nelia, PharmD Patient will adhere to medication regimen General No Nelia Sullivan PharmD Hemoglobin A1c < 7 Result Component 10.3(05/25/19 25 12:32 PM EDT) No Abdias Murillo PharmD [...] documented as of this encounter Care Teams Edger Operator Relationship Specialty Start Date End Date Radha Jamison DO 230 [place] [address] PCP - General Family Medicine 01/26/12 Nelia Sullivan PharmD 230 [place] [address] Pharmacist Internal Medicine 08/31/23 Laurel Monterroso Salvage Inspector Wood PartsNatural Sciences Department Chair 10/27/22 Saige Aguilar 09/26/23 documented as of this encounter
--- OUTSIDE RECORDS SUMMARY | 2024-05-29 11:19 | XMS_ITS | Encounter Summary ---
Author Organization [employer] Address 75 [facility] 7t [place] [address] Care Team Providers Care Direct Service Provider Name Role Phone Radha Jamison DO Primary Care Provider +1- [phone] Abdias Murillo PharmD Unavailable Unavail able Nelia Sullivan PharmD Unavailable [phone] Reason for Visit * Reason Comments Med Refill Encounter Details Date Type Department Care Team (Late st Contact Info) Description 08/01/2023 Refill [facility] MEDICINE 230 [place], [place] [phone] Radha Jamison DO 230 [place] [address] Chronic bilateral low back pain, unspecified whether [...] with others, in a hotel, in a snf, living outside on the street, on a [...] Description 06/14/2024 10:00 AM EDT Medication Management [facility] MEDICINE [address] [place] [address] Nelia Sullivan PharmD [address] [place] [address] 06/25/2024 9:45 AM EDT Office Visit [facility] MEDICINE [address] [place] [address] Radha Jamison DO [address] [place] [address] documented as of this encounter Goals Goal Patient Goal Type Associated Problems Recent Progress Patient-Stated? Author Hemoglobin A1c < 7 Result Component 10.3( 5 12:32 PM EDT) No Abdias Murillo, PharmD documented as of this encounter Visit Diagnoses Diagnosis Chronic bilateral low back pain, unspecified whether sciatica present documented in this encounter Additional Health Concerns Assessment Noted Time PHQ-9 Depression Total Score: 4 11/09/19 23 11:27 AM EDT documented as of this encounter Care Teams Direct Service Provider Relationship Specialty Start Date End Date Radha Jamison DO 230 [place] [address] PCP - General Family Medicine 01/26/12 Abdias Murillo, PharmD 230 [facility] [place] [address] Pharmacist Internal Medicine 03/21/22 08/30/23 Nelia Sullivan PharmD 230 [place] [address] Pharmacist Internal Medicine 08/31/23 Laurel Monterroso Density Control PuncherSlice Plug Cutter Operator 10/27/22 Saige Aguilar 09/26/23 documented as of this encounter
--- OUTSIDE RECORDS SUMMARY | 2024-05-29 11:19 | XMS_ITS | Encounter Summary ---
Author Organization [employer] Address 75 [facility] 7t [place] [address] Care Team Providers Care Vocational Rehab Consultant Name Role Phone Radha Jamison DO Primary Care Provider [phone]- [phone] Abdias Murillo PharmD Unavailable Unavail able Nelia Sullivan PharmD Unavailable Reason for Visit * Reason Comments Med Refill Encounter Details Date Type Department Care Team (Late st Contact Info) Description 04/14/2023 Refill [facility] 230 [place], [place] [phone] Radha Jamison DO 230 [place], [place] [phone] Type 2 diabetes mellitus with hyperglycemia, with long-term current use of insulin ([facility]) Social History Tobacco Use [...] Description 06/14/2024 10:00 AM EDT Medication Management [facility] [address] [place] [address] Nelia Sullivan, PharmD [address] [place] [address] 06/25/2024 9:45 AM EDT Office Visit [facility] [address] [place] [address] Radha Jamison DO [address] [place] [address] documented as of this encounter Goals Goal Patient Goal Type Associated Problems Recent Progress Patient-Stated? Author Hemoglobin A1c < 7 Result Component 10.3( 5 12:32 PM EDT) No Abdias Murillo, PharmD documented as of this encounter Visit Diagnoses Diagnosis Type 2 diabetes mellitus with hyperglycemia, with long-term current use of insulin ([facility]) documented in this encounter Additional Health Concerns Assessment Noted Time PHQ-9 Depression Total Score: 4 11/09/19 23 11:27 AM EDT documented as of this encounter Care Teams Vocational Rehab Consultant Relationship Specialty Start Date End Date Radha Jamison DO [address] [place] [address] PCP - General Family Medicine 01/26/12 Abdias Murillo, KeithD [address] [facility] [place] [address] Pharmacist Internal Medicine 03/21/22 08/30/23 Nelia Sullivan, KeithD [address] [place] [address] Pharmacist Internal Medicine 08/31/23 Laurel Monterroso Customer Care Voice ConsultantNutritional Yeast Supervisor 10/27/22 Saige Aguilar 09/26/23 documented as of this encounter
--- OUTSIDE RECORDS SUMMARY | 2024-05-29 11:19 | XMS_ITS | Encounter Summary ---
Author Organization [employer] Address 75 [facility] 7t [place] [address] Care Team Providers Care Pulmonologist/Intensivist Name Role Phone ShaheenRadha Primary Care Provider [phone] Abdias Murillo PharmD Unavailable Unavail able Nelia Sullivan PharmD Unavailable [phone] Reason for Visit * Reason Onset Date Comments Dental Exam 08/24/2023 Encounter Details Date Type Department Care Team (Late st Contact Info) Description 08/24/2023 Telephone [facility] D[facility]AL 230 [place] [address] Libby Siddiqui, DDS [address] [place] [address] Dental Exam Social History Tobacco Use Types [...] Description 06/14/2024 10:00 AM EDT Medication Management [facility] MEDICINE [address] [place] [address] Nelia Sullivan, PharmD 230 [place] [address] 06/25/2024 9:45 AM EDT Office Visit [facility] MED[facility]INE [address] [place] [address] Radha Jamison DO 230 [place] [address] documented as of this encounter Goals Goal [...] documented as of this encounter Care Teams Pulmonologist/Intensivist Relationship Specialty Start Date End Date Radha Jamison DO 230 [place] [address] PCP - General Family Medicine 01/26/12 Abdias Murillo, PharmD 230 [place] [address] Pharmacist Internal Medicine 03/21/22 08/30/23 Nelia Sullivan, KeithD 230 [place] [address] Pharmacist Internal Medicine 08/31/23 Laurel Monterroso Crate TierFurniture Mover 10/27/22 Saige Aguilar 09/26/23 documented as of this encounter
--- OUTSIDE RECORDS SUMMARY | 2024-05-29 11:19 | XMS_ITS | Encounter Summary ---
Author Organization [employer] Address 75 [facility] 7t [place] [address] Care Team Providers Care Senior Sales Manager Name Role Phone Radha Jamison DO Primary Care Provider +1- [phone] Nelia Sullivan PharmD Unavailable [phone] Reason for Visit * Reason Comments Med Refill Encounter Details Date Type Department Care Team ([facility] Contact Info) Description 12/28/2023 Refill [facility] 230 [place], [place] [phone] Radha Jamison DO 230 [place] [address] Chronic bilateral low back pain, unspecified whether [...] the past 12 months, has t he [employer], gas, oil or water [employer] threatened to shut off services in your [...] Description 06/14/2024 10:00 AM EDT Medication Management [facility] [address] [place] [address] Puia, Nelia, PharmD [address] [place] [address] 06/25/2024 9:45 AM EDT Office Visit [facility] [address] [place] [address] 207[address] Radha Jamison DO 230 [place] [address] documented as of this encounter Goals Goal [...] documented as of this encounter Care Teams Senior Sales Manager Relationship Specialty Start Date End Date Radha Jamison DO 230 [place] [address] PCP - General Family Medicine 01/26/12 Nelia Sullivan, PharmD 230 [place] [address] Pharmacist Internal Medicine 08/31/23 Laurel Monterroso Bilingual Teacher AssistantMotor Pool Clerk 10/27/22 Saige Aguilar 09/26/23 documented as of this encounter
--- OUTSIDE RECORDS SUMMARY | 2024-05-29 11:19 | XMS_ITS | Encounter Summary ---
Author Organization [employer] Address 75 [facility] 7t [place] [address] Care Team Providers Care Stratigraphy Teacher Name Role Phone Radha Jamison DO Primary Care Provider [phone]- [phone] Abdias Murillo PharmD Unavailable Unavail able Nelia Sullivan PharmD Unavailable [phone] Reason for Visit * Reason Comments Med Refill Encounter Details Date Type Department Care Team (Late st Contact Info) Description 08/30/2023 Refill [facility] 230 [place] [address] Radha Jamison DO 230 [place] [address] Chronic bilateral low back pain, unspecified whether [...] Description 06/14/2024 10:00 AM EDT Medication Management [facility] [address] [place] [address] Puia, Nelia, PharmD [address] [place] [address] 06/25/2024 9:45 AM EDT Office Visit [facility] [address] [place] [address] Radha Jamison DO [address] [place] [address] documented as of this encounter Goals Goal [...] documented as of this encounter Care Teams Stratigraphy Teacher Relationship Specialty Start Date End Date Radha Jamison DO 230 [place] [address] PCP - General Family Medicine 01/26/12 Abdias Murillo PharmD [address] [place] [address] Pharmacist Internal Medicine 03/21/22 08/30/23 Nelia Sullivan PharmD [address] [place] [address] Pharmacist Internal Medicine 08/31/23 Laurel Monterroso Crate RepairerDip Lube Operator 10/27/22 Saige Aguilar 09/26/23 documented as of this encounter
--- OUTSIDE RECORDS SUMMARY | 2024-05-29 11:19 | XMS_ITS | Encounter Summary ---
Author Organization [employer] Address 75 [facility] 7t [place] [address] Care Team Providers Care End Stapler Name Role Phone Radha Jamison DO Primary Care Provider [phone]- [phone] Nelia Sullivan PharmD Unavailable [phone] Reason for Visit * Reason Onset Date Comments Med Refill 05/07/2024 Encounter Details Date Type Department Care Team (Late st Contact Info) Description 05/07/2024 Telephone [facility] 230 [place], [place] [phone] Radha Jamison DO 230 [place], [place] [phone] Med Refill Social History Tobacco Use Types [...] with others, in a hotel, in a fpc, living outside on the street, on a [...] the past 12 months, has t he [employer], gas, oil or water [employer] threatened to shut off services in your [...] immediate release tablet To be sent to: [facility] Pharmacy documented in this encounter Plan of Treatment Upcoming Encounters Date Type Department Care Team (Late st Contact Info) Description 06/14/2024 10:00 AM EDT Medication Management [facility] [address] [place] [address] [phone] Nelia Sullivan, PharmD 230 [place] [address] 06/25/2024 9:45 AM EDT Office Visit [facility] [address] [place] [address] [phone] Radha Jamison DO 230 [place] [address] documented as of this encounter Goals Goal Patient Goal Type Associated Problems Recent Progress Patient-Stated? Author Record your blood pressure once per day Blood Pressure No AnaiiaFeliceNelia, PharmD Blood Pressure < 140/90 Blood Pressure 160/70(2024 12:28 PM EDT) No Puia Nelia, PharmD Smoking cessation [...] documented as of this encounter Care Teams End Stapler Relationship Specialty Start Date End Date Radha Jamison DO 230 [place] [address] PCP - General Family Medicine 01/26/12 Laurie, Nelia, PharmD [address] [place] [address] Pharmacist Internal Medicine 08/31/23 Laurel Monterroso Telecommunications Project ManagerComponent Overhaul Operator 10/27/22 Saige Aguilar 09/26/23 documented as of this encounter
--- OUTSIDE RECORDS SUMMARY | 2024-05-29 11:19 | XMS_ITS | Encounter Summary ---
Author Organization [employer] Address 75 [facility] 7t [place] [address] Care Team Providers Care Business Management Intern Name Role Phone Radha Jamison DO Primary Care Provider [phone]- [phone] Nelia Sullivan PharmD Unavailable [phone] Reason for Visit * Reason Comments Med Refill Encounter Details Date Type Department Care Team ([facility] st Contact Info) Description 05/17/2024 Refill [facility] 230 [place], [place] [phone] Radha Jamison DO 230 [place] [address] Chronic bilateral low back pain, unspecified whether [...] the past 12 months, has t he [employer], gas, oil or water [employer] threatened to shut off services in your [...] Description 06/14/2024 10:00 AM EDT Medication Management [facility] [address] [place] [address] Puia, Nelia, PharmD [address] [place] [address] 06/25/2024 9:45 AM EDT Office Visit [facility] [address] [place] [address] Radha Jamison DO 230 [place] [address] documented as of this encounter Goals Goal [...] documented as of this encounter Care Teams Business Management Intern Relationship Specialty Start Date End Date Radha Jamison DO 230 [place] [address] PCP - General Family Medicine 01/26/12 Nelia Sullivan, PharmD 230 [place] [address] Pharmacist Internal Medicine 08/31/23 Laurel Monterroso Automobile Radiator MechanicFamily Partner 10/27/22 Saige Aguilar 09/26/23 documented as of this encounter
--- OUTSIDE RECORDS SUMMARY | 2024-05-29 11:19 | XMS_ITS | Encounter Summary ---
Author Organization [employer] Address [address] [facility] 7t [place] [address] Care Team Providers Care Orthopedic Assistant Name Role Phone Radha Jamison DO Primary Care Provider [phone]- [phone] Abdias Murillo PharmD Unavailable Unavail able Nelia Sullivan PharmD Unavailable [phone] Encounter Details Date Type Department Care Team (Late st Contact Info) Description 06/15/2023 Orders Only [facility] 230 [place] [address] Radha Jamison DO 230 [place], [place] [phone] Stenosis of right carotid artery Social History [...] Description 06/14/2024 10:00 AM EDT Medication Management [facility] MEDICINE [address] [place] [address] Nelia Sullivan PharmD [address] [place] [address] 06/25/2024 9:45 AM EDT Office Visit [facility] MED[facility]INE [address] [place] [address] Radha Jamison DO [address] [place] [address] documented as of this encounter Goals Goal Patient Goal Type Associated Problems Recent Progress Patient-Stated? Author Hemoglobin A1c < 7 Result Component 10.3( 12:32 PM EDT) No Abdias Murillo, PharmD [...] Time PHQ-9 Depression Total Score: 4 11/09/19 11:27 AM EDT documented as of this encounter Care Teams Orthopedic Assistant Relationship Specialty Start Date End Date Radha Jamison DO 230 [place] [address] PCP - General Family Medicine 01/26/12 Abdias Murillo, KeithD 230 [place] [address] Pharmacist Internal Medicine 03/21/22 08/30/23 Nelia Sullivan PharmD 230 [place] [address] Pharmacist Internal Medicine 08/31/23 Laurel Monterroso Senior Php Software DeveloperActing Manager 10/27/22 Saige Aguilar 09/26/23 documented as of this encounter
--- OUTSIDE RECORDS SUMMARY | 2024-05-29 11:19 | XMS_ITS | Encounter Summary ---
Author Organization [employer] Address 75 [facility] 7t [place] [address] Care Team Providers Care Director Of Strategic Sourcing Name Role Phone Radha Jamison DO Primary Care Provider [phone] Nelia Sullivan PharmD Unavailable [phone] Reason for Visit * Reason Onset Date Comments Med Refill 03/06/2024 Encounter Details Date Type Department Care Team (Late st Contact Info) Description 03/06/[address] [facility] 230 [place], [place] [phone] Radha Jamison DO 230 [place], [place] [phone] Med Refill Social History Tobacco Use Types [...] the past 12 months, has t he [employer], gas, oil or water [employer] threatened to shut off services in your [...] immediate release tablet To be sent to: [facility] pharmacy documented in this encounter Plan of Treatment Upcoming Encounters Date Type Department Care Team (Late st Contact Info) Description 06/14/2024 10:00 AM EDT Medication Management [facility] [address] [place] [address] Nelia Sullivan PharmD 230 [place] [address] 06/25/2024 9:45 AM EDT Office Visit [facility] [address] [place] [address] Radha Jamison DO 230 [place] [address] documented as of this encounter Goals Goal [...] of this encounter Care Teams Director Of Strategic Sourcing Relationship Specialty Start Date End Date Radha Jamison DO 230 [place] [address] PCP - General Family Medicine 01/26/12 Nelia Sullivan, PharmD [address] [place] [address] Pharmacist Internal Medicine 08/31/23 Laurel Monterroso Housing ManagerPaper Counter 10/27/22 Saige Aguilar 09/26/23 documented as of this encounter
--- OUTSIDE RECORDS SUMMARY | 2024-05-29 11:19 | XMS_ITS | Encounter Summary ---
Author Organization [employer] Address 75 [facility] 7t [place] [address] Care Team Providers Care Risk Management Professional Name Role Phone Radha Jamison DO Primary Care Provider Abdias Murillo PharmD Unavailable Unavail able Nelia Sullivan PharmD Unavailable Encounter Details Date Type Department Care Team ([facility] st Contact Info) Description 10/10/2022 Telephone [facility]INE 230 [place] [address] Radha Jamison DO 230 [place] [address] Social History Tobacco Use Types Packs/Day Years [...] Description 06/14/2024 10:00 AM EDT Medication Management [facility] MED[facility]INE [address] [place] [address] Nelia Sullivan PharmD 230 [place] [address] 06/25/2024 9:45 AM EDT Office Visit [address] [address] [place] [address] documented as of this encounter Goals Goal [...] documented as of this encounter Care Teams Risk Management Professional Relationship Specialty Start Date End Date Radha Jamison DO [address] [place] [address] PCP - General Family Medicine 01/26/12 Abdias Murillo, PharmD [address] [place] [address] Pharmacist Internal Medicine 03/21/22 08/30/23 Nelia Sullivan PharmD [address] [place] [address] Pharmacist Internal Medicine 08/31/23 Laurel Monterroso Plant Engineering ManagerDiabetes Educator 10/27/22 Saige Aguilar 09/26/23 documented as of this encounter
--- OUTSIDE RECORDS SUMMARY | 2024-05-29 11:19 | XMS_ITS | Encounter Summary ---
Author Organization [employer] [facility] Address 75 [facility] 7t [place] [address] Care Team Providers Care Metal Numerical Tool Programmer Name Role Phone Radha Jamison DO Primary Care Provider [phone]- [phone] Abdias Murillo PharmD Unavailable Unavail able Nelia Sullivan PharmD Unavailable Reason for Visit * Reason Comments Med Refill Encounter Details Date Type Department Care Team (Late st Contact Info) Description 08/11/2022 Refill [facility] 230 [place] [address] Radha Jamison DO 230 [place] [address] Anemia, unspecified type Social History Tobacco Use [...] for patient to contact Mary Reynolds at [phone]. documented in this encounter Plan of Treatment Upcoming Encounters Date Type Department Care Team (Late st Contact Info) Description 06/14/2024 10:00 AM EDT Medication Management [facility] MED[facility]INE [address] [place] [address] Nelia Sullivan PharmD [address] [place] [address] 06/25/2024 9:45 AM EDT Office Visit [facility] MED[facility] [address] [place] [address] 264[address] Radha Jamison DO [address] [place] [address] documented as of this encounter Goals Goal Patient Goal Type Associated Problems Recent Progress Patient-Stated? Author Hemoglobin A1c < 7 Result Component 10.3( 12:32 PM EDT) No Abdias Murillo, PharmAdrian documented as of this encounter Visit Diagnoses Diagnosis Anemia, unspecified type documented in this encounter Additional Health Concerns Assessment Noted Time PHQ-9 Depression Total Score: 14 023 12:00 PM EST documented as of this encounter Care Teams Metal Numerical Tool Programmer Relationship Specialty Start Date End Date Radha Jamison DO [address] [place] [address] PCP - General Family Medicine 01/26/12 Abdias Murillo, PharmD [address] [place] [address] Pharmacist Internal Medicine 03/21/22 08/30/23 Nelia Sullivan, PharmAdrian [address] [place] [address] Pharmacist Internal Medicine 08/31/23 Laurel Monterroso Property WorkerOtr Tanker Truck Driver 10/27/22 Saige Aguilar 09/26/23 documented as of this encounter
--- OUTSIDE RECORDS SUMMARY | 2024-05-29 11:19 | XMS_ITS | Encounter Summary ---
Author Organization [employer] [facility] Address 75 [facility] 7t [place] [address] Care Team Providers Care Buttermaker Continuous Churn Name Role Phone Radha Jamison DO Primary Care Provider DelAbdias hardy PharmD Unavailable Unavail able PuNelia cortes PharmD Unavailable Reason for Visit * Reason Comments Med Refill Encounter Details Date Type Department Care Team ([facility] Contact Info) Description 10/25/2022 Refill [facility] MED[facility]INE 230 [place] [address] Radha Jamison DO 230 [place] [address] Chronic bilateral low back pain, unspecified whether [...] Department Care Team (Late Contact Info) Description 06/14/2024 10:00 AM EDT Medication Management [facility] MEDICINE 230 [place] [address] Puia, Nelia, PharmD [address] [place] [address] 06/25/2024 9:45 AM EDT Office Visit [facility] MEDICINE [address] [place] [address] Radha Jamison DO [address] [place] [address] documented as of this encounter Goals Goal Patient Goal Type Associated Problems Recent Progress Patient-Stated? Author Hemoglobin A1c < 7 Result Component 10.3( 12:32 PM EDT) No Abdias Murillo PharmD documented as of this encounter Visit Diagnoses Diagnosis Chronic bilateral low back pain, unspecified whether sciatica present documented in this encounter Additional Health Concerns Assessment Noted Time PHQ-9 Depression Total Score: 14 023 12:00 PM EST documented as of this encounter Care Teams Buttermaker Continuous Churn Relationship Specialty Start Date End Date Radha Jamison DO [facility] [place] [address] PCP - General Family Medicine 01/26/12 Abdias Murillo, Camron [facility] [place] [address] Pharmacist Internal Medicine 03/21/22 08/30/23 Nelia Sullivan PharmD [facility]reet [facility] [place] [address] Pharmacist Internal Medicine 08/31/23 Laurel Monterroso Endoscopy RnCane Cutter 10/27/22 Saige Aguilar 09/26/23 documented as of this encounter
--- OUTSIDE RECORDS SUMMARY | 2024-05-29 11:19 | XMS_ITS | Encounter Summary ---
Author Organization [employer] [facility] Address 75 [facility] 7t [place] [address] Care Team Providers Care Silica Spray Mixer Name Role Phone Radha Jamison DO Primary Care Provider [phone] DellogAbdias cotto PharmD Unavailable Unavail able Nelia Sullivan PharmD Unavailable [phone] Reason for Visit * Reason Comments Med Refill Encounter Details Date Type Department Care Team ([facility] Contact Info) Description 11/10/2022 Refill [facility] [address] [place] [address] Radha Jamison DO 230 [place] [address] Chronic gastroesophageal reflux disease Social History Tobacco [...] Upcoming Encounters Date Type Department Care Team ([facility] Contact Info) Description 06/14/2024 10:00 AM EDT Medication Management [facility] [address] [place] [address] [phone] Nelia Sullivan PharmD 230 [facility] [place] [address] 06/25/2024 9:45 AM EDT Office Visit [facility] [address] [place] [address] Radha Jamison DO 230 [facility] [place] [address] documented as of this encounter Goals Goal Patient Goal Type Associated Problems Recent Progress Patient-Stated? Author Hemoglobin A1c < 7 Result Component 10.3( 12:32 PM EDT) No Abdias Murillo, Camron documented as of this encounter Visit Diagnoses Diagnosis Chronic gastroesophageal reflux disease documented in this encounter Additional Health Concerns Assessment Noted Time PHQ-9 Depression Total Score: 4 11/09/19 23 11:27 AM EDT documented as of this encounter Care Teams Silica Spray Mixer Relationship Specialty Start Date End Date Radha Jamison DO [facility]reet [facility] [place] [address] PCP - General Family Medicine 01/26/12 Abdias Murillo, PharmD [address] [place], [place] [address]mel[place] [address] Pharmacist Internal Medicine 03/21/22 08/30/23 Nelia Sullivan, PharmD Preet [facility] [place] [address] Pharmacist Internal Medicine 08/31/23 Laurel Monterroso City MagistrateInstrument Repair Technician 10/27/22 Saige Aguilar 09/26/23 documented as of this encounter
--- OUTSIDE RECORDS SUMMARY | 2024-05-29 11:19 | XMS_ITS | Encounter Summary ---
Author Organization [employer] Address 75 [facility] 7t [place] [address] Care Team Providers Care Home Visit Field Care Manager Name Role Phone Radha Jamison DO Primary Care Provider +1- [phone] Abdias Murillo PharmD Unavailable Unavail able Nelia Sullivan PharmD Unavailable [phone] Reason for Visit * Reason Onset Date Comments Med Refill 10/24/2022 Encounter Details Date Type Department Care Team (Late st Contact Info) Description 10/24/2022 Telephone [facility] MEDICINE [address] [place] [address] Radha Jamison DO [address] [place] [address] Med Refill Social History Tobacco Use Types [...] to PCPon 10/28/22. * Telephone Encounter - aL Dash - 10/24/2022 11:33 AM EDT Tc from pt requesting med refill for medication oxyCODONE (Roxicodone) 5 MG immediate release tablet. documented in this encounter Plan of Treatment Upcoming Encounters Date Type Department Care Team (Late st Contact Info) Description 06/14/2024 10:00 AM EDT Medication Management [facility] MEDICINE [address] [place] [address] Nelia Sullivan PharmD [address] [place] [address] 06/25/2024 9:45 AM EDT Office Visit [facility] MEDICINE [address] [place] [address] Radha Jamison DO [address] [place] [address] documented as of this encounter Goals Goal [...] documented as of this encounter Care Teams Home Visit Field Care Manager Relationship Specialty Start Date End Date Radha Jamison DO [address] [place] [address] PCP - General Family Medicine 01/26/12 Abdias Murillo PharmAdrian [address] [place] [address] Pharmacist Internal Medicine 03/21/22 08/30/23 eNlia Sullivan PharmD [address] [place] [address] Pharmacist Internal Medicine 08/31/23 Laurel Monterroso Legislative AnalystPlate Stacker Hand 10/27/22 Saige Aguilar 09/26/23 documented as of this encounter
--- OUTSIDE RECORDS SUMMARY | 2024-05-29 11:19 | XMS_ITS | Encounter Summary ---
Author Organization [employer] Address 75 [facility] 7t [place] [address] Care Team Providers Care Photo Checker And Assembler Name Role Phone Radha Jamison DO Primary Care Provider +1- [phone] Nelia Sullivan PharmD Unavailable [phone] Reason for Visit * Reason Comments Med Refill Encounter Details Date Type Department Care Team ([facility] Contact Info) Description 01/06/2024 Refill [facility] MEDICINE [address] [place], [place] [phone] Radha Jamison DO [address] [place] [address] Depression, unspecified depression type; Essential (primary) hypertension [...] the past 12 months, has t he [employer], gas, oil or water [employer] threatened to shut off services in your [...] Description 06/14/2024 10:00 AM EDT Medication Management [facility] MEDICINE [address] [place] [address] Puia, Nelia, PharmD [address] [place] [address] 06/25/2024 9:45 AM EDT Office Visit [facility] [address] [place] [address] Radha Jamison DO 230 [place] [address] documented as of this encounter Goals Goal Patient Goal Type Associated Problems Recent Progress Patient-Stated? Author Record your blood pressure once per day Blood Pressure No Puia, Nelia, PharmD Blood Pressure < 140/90 Blood Pressure 160/70(2024 12:28 PM EDT) No Puia, Nelia, PharmD Smoking cessation General No Nelia Sullivan, [...] documented as of this encounter Care Teams Photo Checker And Assembler Relationship Specialty Start Date End Date Radha Jamison DO [address] [place] [address] PCP - General Family Medicine 01/26/12 Nelia Sullivan, KeihtD [address] [place] [address] Pharmacist Internal Medicine 08/31/23 Laurel Monterroso Generation ManagerFish Conservationist 10/27/22 Saige Aguilar 09/26/23 documented as of this encounter
--- OUTSIDE RECORDS SUMMARY | 2024-05-29 11:19 | XMS_ITS | Encounter Summary ---
Author Organization [employer] Address 75 [facility] 7t [place] [address] Care Team Providers Care Forest Products Teacher Name Role Phone Radha Jamison DO Primary Care Provider [phone]- [phone] Abdias Murillo PharmD Unavailable Unavail able Nelia Sullivan PharmD Unavailable Reason for Visit * Reason Onset Date Comments Med Refill 10/18/2022 Encounter Details Date Type Department Care Team (Late st Contact Info) Description 10/18/2022 Telephone [facility] MEDICINE 230 [place] [address] Radha Jamison DO 230 [place] [address] Med Refill Social History Tobacco Use Types [...] PCP needed re:controlled medication. 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 Any questions, contact pt at [phone] (Montserratian) * Telephone Encounter - Acacia Chakraborty RN [...] 06/14/2024 10:00 AM EDT Medication Management [facility] [place] [address] Nelia Sullivan PharmD [address] [facility] [place] [address] 06/25/2024 9:45 AM EDT Office Visit [facility] [address] [facility] [place] [place] [address] Radha Jamison DO [address] [facility] [place] [place] [address] documented as of this encounter Goals Goal [...] documented as of this encounter Care Teams Forest Products Teacher Relationship Specialty Start Date End Date Radha Jamison DO [facility] [place] [address] PCP - General Family Medicine 01/26/12 Abdias Murillo, PharmD [facility] [place] [address] Pharmacist Internal Medicine 03/21/22 08/30/23 Nelia Sullivan PharmD [facility] [place] [address] Pharmacist Internal Medicine 08/31/23 Laurel Monterroso Patrol Deputy SheriffRoom Manager 10/27/22 Saige Aguilar 09/26/23 documented as of this encounter
--- OUTSIDE RECORDS SUMMARY | 2024-05-29 11:19 | XMS_ITS | Encounter Summary ---
Author Organization [employer] Address 75 [facility] 7t [place] [address] Care Team Providers Care Air Breaker Operator Name Role Phone Radha Jamison DO Primary Care Provider [phone]- [phone] Abdias Murillo PharmD Unavailable Unavail able Nelia Sullivan PharmD Unavailable [phone] Reason for Visit * Reason Comments Med Refill Encounter Details Date Type Department Care Team (Late st Contact Info) Description 04/14/2023 Refill [facility] MEDICINE 230 [place], [place] [phone] Radha Jamison DO 230 [place], [place] [phone] Type 2 diabetes mellitus with hyperglycemia, with long-term current use of insulin ([facility]) Social History Tobacco Use Types Packs/Day [...] Description 06/14/2024 10:00 AM EDT Medication Management [facility] MEDICINE [address] [place] [address] Nelia Sullivan, PharmD [address] [place] [address] 06/25/2024 9:45 AM EDT Office Visit [facility] MEDICINE [address] [place] [address] Radha Jamison DO [address] [place] [address] documented as of this encounter Goals Goal Patient Goal Type Associated Problems Recent Progress Patient-Stated? Author Hemoglobin A1c < 7 Result Component 10.3( 5 12:32 PM EDT) No Abdias Murillo, PharmD documented as of this encounter Visit Diagnoses Diagnosis Type 2 diabetes mellitus with hyperglycemia, with long-term current use of insulin ([facility]) documented in this encounter Additional Health Concerns Assessment Noted Time PHQ-9 Depression Total Score: 4 11/09/19 23 11:27 AM EDT documented as of this encounter Care Teams Air Breaker Operator Relationship Specialty Start Date End Date Radha Jamison DO [address] [place] [address] PCP - General Family Medicine 01/26/12 Abdias Murillo, KeithD 230 [facility] [place] [address] Pharmacist Internal Medicine 03/21/22 08/30/23 Nelia Sullivan, KeithD [address] [place] [address] Pharmacist Internal Medicine 08/31/23 Laurel Monterroso Deposit Refund ClerkAccounts Supervisor 10/27/22 Saige Aguilar 09/26/23 documented as of this encounter
--- OUTSIDE RECORDS SUMMARY | 2024-05-29 11:19 | XMS_ITS | Encounter Summary ---
Author Organization [employer] Address 75 [facility] 7t [place] [address] Care Team Providers Care Chief Unit Forester Name Role Phone Radha Jamison DO Primary Care Provider +1- [phone] Nelia Sullivan PharmD Unavailable [phone] Reason for Visit * Reason Comments Med Refill Encounter Details Date Type Department Care Team ([facility] Contact Info) Description 05/07/2024 Refill [facility] MEDICINE 230 [place], [place] [phone] Radha Jamison DO 230 [place] [address] Social History Tobacco Use Types Packs/Day Years [...] Description 06/14/2024 10:00 AM EDT Medication Management [facility] MEDICINE [address] [place] [address] PuiaFeliceNelia, PharmD [address] [place] [address] 06/25/2024 9:45 AM EDT Office Visit [facility] MEDICINE [address] [place] [address] Radha Jamison DO 230 [place] [address] documented as of this encounter Goals Goal [...] documented as of this encounter Care Teams Chief Unit Forester Relationship Specialty Start Date End Date Radha Jamison DO 230 [place] [address] PCP - General Family Medicine 01/26/12 Nelia Sullivan PharmD 230 [place] [address] Pharmacist Internal Medicine 08/31/23 Laurel Monterroso Senior Systems AdministratorFlamer Sealer 10/27/22 Saige Aguilar 09/26/23 documented as of this encounter
--- OUTSIDE RECORDS SUMMARY | 2024-05-29 11:19 | XMS_ITS | Encounter Summary ---
Author Organization [email or web address] Address 75 [facility] 7t [place] [address] Care Team Providers Care Family Manager Name Role Phone Radha Jamison DO Primary Care Provider +1- [phone] Abdias Murillo PharmD Unavailable Unavail able Nelia Sullivan PharmD Unavailable Reason for Visit * Reason Comments Med Refill Encounter Details Date Type Department Care Team (Late st Contact Info) Description 06/06/2023 Refill [facility] 230 [place] [address] Radha Jamison DO 230 [place] [address] Chronic bilateral low back pain, unspecified whether [...] [facility] [address] [place] [address] Nelia Sullivan PharmD [address] [place] [address] 06/25/2024 9:45 AM EDT Office Visit [facility] MEDICINE [address] [place] [address] Radha Jamison DO [address] [place] [address] documented as of this encounter Goals Goal Patient Goal Type Associated Problems Recent Progress Patient-Stated? Author Hemoglobin A1c < 7 Result Component 10.3( 5 12:32 PM EDT) No Abdias Murillo PharmD documented as of this encounter Visit Diagnoses Diagnosis Chronic bilateral low back pain, unspecified whether sciatica present documented in this encounter Additional Health Concerns Assessment Noted Time PHQ-9 Depression Total Score: 4 11/09/19 23 11:27 AM EDT documented as of this encounter Care Teams Family Manager Relationship Specialty Start Date End Date Radha Jamison DO [address] [place] [address] [phone] PCP - General Family Medicine 01/26/12 Abdias Murillo, PharmD 230 [place] [address] Pharmacist Internal Medicine 03/21/22 08/30/23 Nelia Sullivan, PharmD 230 [place] [address] Pharmacist Internal Medicine 08/31/23 Laurel Monterroso Performance Solutions SpecialistHookman 10/27/22 Saige Aguilar 09/26/23 documented as of this encounter
--- OUTSIDE RECORDS SUMMARY | 2024-05-29 11:19 | XMS_ITS | Encounter Summary ---
Author Organization [employer] Address 75 [facility] 7t [place] [address] Care Team Providers Care Account Installer Name Role Phone Radha Jamison DO Primary Care Provider +1- [phone] Nelia Sullivan PharmD Unavailable [phone] Reason for Visit * Reason Onset Date Comments Returning Call 01/17/2024 Hospital Follow-up 01/17/2024 Encounter Details Date Type Department Care Team ([facility] st Contact Info) Description 01/17/2024 Telephone [facility] MEDICINE 230 [place] [address] Radha Jamison DO 230 [place] [address] Returning Call ; Hospital Follow-up Social History [...] with others, in a hotel, in a long-term, living outside on the street, on a [...] t he electric, gas, oil or water [employer] threatened to shut off services in your [...] Description 06/14/2024 10:00 AM EDT Medication Management [facility] MEDICINE [address] [place] [address] Nelia Sullivan, PharmD 230 [place] [address] 06/25/2024 9:45 AM EDT Office Visit [facility] MEDICINE [address] [place] [address] Radha Jamison DO 230 [place] [address] documented as of this encounter Goals Goal [...] Component 10.3(05/25/19 12:32 PM EDT) No Abdias Murillo, PharmD Record your blood [...] documented as of this encounter Care Teams Account Installer Relationship Specialty Start Date End Date Radha Jamison DO 230 [place] [address] PCP - General Family Medicine 01/26/12 Puia, Nelia, PharmD [address] [place] [address] Pharmacist Internal Medicine 08/31/23 Laurel Monterroso Renal TechnicianMortgage Collector 10/27/22 Saige Aguilar 09/26/23 documented as of this encounter
--- OUTSIDE RECORDS SUMMARY | 2024-05-29 11:19 | XMS_ITS | Encounter Summary ---
Author Organization [employer] Address 75 [facility] 7t [place] [address] Care Team Providers Care Loss Prevention Officer Name Role Phone Radha Jamison DO Primary Care Provider +1- [phone] Nelia Sullivan PharmD Unavailable [phone] Reason for Visit * Reason Comments Med Refill Encounter Details Date Type Department Care Team ([facility] st Contact Info) Description 03/19/2024 Refill [facility] MEDICINE 230 [place], [place] [phone] Radha Jamison DO 230 [place] [address] Chronic bilateral low back pain, unspecified whether [...] the past 12 months, has t he [employer], gas, oil or water [employer] threatened to shut off services in your [...] 10:00 AM EDT Medication Management [facility] MEDICINE [address] [place] [address] Puia, Nelia, PharmD [address] [place] [address] 06/25/2024 9:45 AM EDT Office Visit [facility] MEDICINE [address] [place] [address] Radha Jamison DO 230 [place] [address] documented as of this encounter Goals Goal [...] documented as of this encounter Care Teams Loss Prevention Officer Relationship Specialty Start Date End Date Radha Jamison DO [address] [place] [address] PCP - General Family Medicine 01/26/12 Nelia Sullivan, PharmD 230 [place] [address] Pharmacist Internal Medicine 08/31/23 Laurel Monterroso Restorative AideMigratory Farm Hand 10/27/22 Saige Aguilar 09/26/23 documented as of this encounter
--- OUTSIDE RECORDS SUMMARY | 2024-05-29 11:19 | XMS_ITS | Encounter Summary ---
Author Organization [employer] Address 75 [facility] 7t [place] [address] Care Team Providers Care Venetian Blind Assembler Name Role Phone Radha Jamison DO Primary Care Provider [phone]- [phone] Nelia Sullivan PharmD Unavailable [phone] Reason for Visit * Reason Comments Med Refill Encounter Details Date Type Department Care Team ([facility] st Contact Info) Description 05/17/2024 Refill [facility] MEDICINE 230 [place], [place] [phone] Radha Jamison DO 230 [place] [address] Chronic bilateral low back pain, unspecified whether [...] the past 12 months, has t he [employer], gas, oil or water [employer] threatened to shut off services in your [...] Description 06/14/2024 10:00 AM EDT Medication Management [facility] MEDICINE [address] [place] [address] Puia, Nelia, PharmD [address] [place] [address] 06/25/2024 9:45 AM EDT Office Visit [facility] MEDICINE [address] [place] [address] Radha Jamison DO [address] [place] [address] documented as of this encounter Goals Goal [...] documented as of this encounter Care Teams Venetian Blind Assembler Relationship Specialty Start Date End Date Radha Jamison DO 230 [place] [address] PCP - General Family Medicine 01/26/12 Nelia Sullivan, PharmD [address] [place] [address] Pharmacist Internal Medicine 08/31/23 Laurel Monterroso Bonding Machine OperatorPlanning Assistant 10/27/22 Saige Aguilar 09/26/23 documented as of this encounter
--- OUTSIDE RECORDS SUMMARY | 2024-05-29 11:19 | XMS_ITS | Encounter Summary ---
Author Organization [employer] Address 75 [facility] 7t [place] [address] Care Team Providers Care Tank Officer Name Role Phone Radha Jamison DO Primary Care Provider +1- [phone] Abdias Murillo PharmD Unavailable Unavail able Nelia Sullivan PharmD Unavailable [phone] Reason for Visit * Reason Onset Date Comments uber 05/08/2023 Encounter Details Date Type Department Care Team ([facility] st Contact Info) Description 05/08/2023 Telephone [facility] MEDICINE 230 [place] [address] Radha Jamison DO 230 [place] [address] uber Social History Tobacco Use Types Packs/Day [...] / denial letter via mail. PT-1 Request [id number] Pending . [facility] [address] [place] [address] Manager Completions noticed pt has pending referrals. Manager Completions has added a note to each to add PT1 for referred tooffice. * Telephone Encounter - Ginna Stephen RN - 05/10/2023 9:31 AM EDT Uber booked for tomorrow 8:45am. TC placed to pt. And made pt. Aware. Pt. Also reports PT-1 expiredand would like it renewed for next time, to [facility] * Telephone Encounter - Ciera Carson - 05/10/2023 9:07 AM EDT Tc from pt calling in regards to message above. Pt also received a call, continuity writer does not see any documentation. Please contact pt at [phone] * Telephone Encounter - Ciera Carson - 05/08/2023 12:54 PM EDT Tc from pt states will need uber transportation for 05/10 with provider. Please contact pt at [phone] documented in this encounter Plan of Treatment Upcoming Encounters Date Type Department Care Team (Late st Contact Info) Description 06/14/2024 10:00 AM EDT Medication Management [facility] MEDICINE [address] [place] [address] Nelia Sullivan PharmD [address] [place] [address] 06/25/2024 9:45 AM EDT Office Visit [address] [address] Radha Jamison DO [address] [place] [address] documented as of this encounter Goals Goal [...] documented as of this encounter Care Teams Tank Officer Relationship Specialty Start Date End Date Radha Jamison DO [address] [place] [address] PCP - General Family Medicine 01/26/12 Abdias Murillo, PharmD [address] [place] [address] Pharmacist Internal Medicine 03/21/22 08/30/23 Nelia Sullivan PharmD [address] [place] [address] Pharmacist Internal Medicine 08/31/23 Laurel Monterroso Grab HookerLube Worker 10/27/22 Saige Aguilar 09/26/23 documented as of this encounter
--- OUTSIDE RECORDS SUMMARY | 2024-05-29 11:19 | XMS_ITS | Encounter Summary ---
Author Organization [employer] Address 75 [facility] 7t [place] [address] Care Team Providers Care Learning Design Specialist Name Role Phone Radha Jamison DO Primary Care Provider Abdias Murillo PharmD Unavailable Unavail able Nelia Sullivan PharmD Unavailable Reason for Visit * Reason Onset Date Comments Durable Medical Equipment 09/08/2022 Encounter Details Date Type Department Care Team (Late st Contact Info) Description 09/08/2022 Telephone [facility] MEDICINE 230 [place] [address] Radha Jamison DO [address] [place] [address] Durable Medical Equipment Social History Tobacco Use [...] is not working. Please contact pt at [phone] documented in this encounter Plan of Treatment Upcoming Encounters Date Type Department Care Team (Late st Contact Info) Description 06/14/2024 10:00 AM EDT Medication Management [facility] MEDICINE [address] [place] [address] Nelia Sullivan PharmD [address] [place] [address] 06/25/2024 9:45 AM EDT Office Visit [facility] MEDICINE [address] [place] [address] Radha Jamison DO [address] [place] [address] documented as of this encounter Goals Goal [...] documented as of this encounter Care Teams Learning Design Specialist Relationship Specialty Start Date End Date Radha Jamison DO [address] [place] [address] PCP - General Family Medicine 01/26/12 Abdias Murillo PharmD [address] [place] [address] Pharmacist Internal Medicine 03/21/22 08/30/23 Nelia Sullivan PharmD [address] [place] [address] Pharmacist Internal Medicine 08/31/23 Laurel Monterroso Crude Oil DriverSpiral Spring Winder 10/27/22 Saige Aguilar 09/26/23 documented as of this encounter
--- OUTSIDE RECORDS SUMMARY | 2024-05-29 11:19 | XMS_ITS | Clinical Summary ---
Author Organization [employer] Address [address] [facility] [address] [place] [address] Care Team Providers Care Critical Care Clinical Nurse Specialist Name Role Phone ShaheenRadha Primary Care Provider Nelia Sullivan PharmD Unavailable [phone] Allergies Active Allergy Reactions Criticality Noted Date Comments Furosemide Rash Low 02/01/2024 Latex Rash High 07/26/2023 Naproxen Hives,Palpitations High 07/26/2023 Medications * This document contains information received from the source organization and may not represent a complete record from that organization. clopidogrel (Plavix) 75 MG tablet Take 1 tablet by mouth at bed time. Active Blood Pressure Monitoring (Omron 3 Series BP [...] crush, chew, or split. 90 tablet 3 024 Active lisinopril 40 MG tabletIndications: Seasonal allergic rhinitis due to other allergic trigger Take 1 tablet (40 mg) by mouth in the morning. 90 tablet 1 024 Active pioglitazone (Actos) 15 MG tabletIndications: Type 2 diabetes mellitus with hyperglycemia, with long-term current use of insulin (CMS/[facility]) TAKE 1 TABLET BY MOUTH EVERY MORNING [...] edema presence unspecified, unspecified laterality, unspecified whether rn long term care insulin use ([facility]) Inject 15 Units under the skin at [...] MORNING AND AT BEDTIME 180 tablet 1 024 Active docusate sodium (Colace) 100 MG capsuleIndications :Anemia, unspecified type TAKE 1 CAPSULE BY MOUTH TWICE DAILY IN THE MORNING AND IN THE EVENING FOR CONSTIPATION 180 capsule 1 024 Active carvedilol (Coreg) 25 MG tabletIndications: Hypertension, unspecified type TAKE 1 TABLET BY MOUTH TWICE DAILY IN THE MORNING AND IN THE EVENING WITH FOOD 180 tablet 1 025 Active hydroCHLOROthiazid e (HYDRODiuril) 50 MG tablet Take 1 tablet (50 mg) by mouth Once per day. 90 tablet 1 025 Active Continuous Glucose Precision Layout Worker (FreeStyle Jenn 3 Hickman) device 1 each 3 times daily. Use daily as directed for CGM 1 each 025 Active Continuous Glucose Sensor (FreeStyle Jenn 3 Plus Sensor) misc 1 each Once per day. Apply 1 sensor as directed every 15 days for CGM 2 each 025 Active varenicline (Chantix) 1 MG tablet Take 1 tablet (1 mg) by mouth 2 times daily. Take with full glass of water. 60 tablet 5 025 Active glucose blood (FreeStyle Precision Julian Test) test strip Use to test blood sugar 3 times daily 100 each 025 2025 Active TRUEplus Lancets 33G misc TEST BLOOD SUGAR UP TO THREE TIMES DAILY DIRECTED 100 each 025 Active amitriptyline (Elavil) 50 MG tabletIndications: Other chronic pain TAKE 1 TABLET BY MOUTH AT BEDTIME 30 tablet 3 025 Active mirtazapine (Remeron) 45 MG tabletIndications: Mood disorder (CMS/HCC) TAKE 1 TABLET BY MOUTH AT BEDTIME 30 tablet 3 025 Active aspirin (Aspirin Low Dose) 81 MG EC tabletIndications: Hypertension, unspecified type TAKE 1 TABLET BY MOUTH EVERY EVENING 90 tablet 025 Active Multiple Vitamin (Multivitamin) tabletIndications: Hypertension, unspecified type TAKE 1 TABLET BY MOUTH EVERY MORNING WITH FOOD 90 tablet 025 Active empagliflozin-metF ORMIN (Synjardy) 12.5-1000 MG Take 1 tablet by mouth with breakfast and with evening meal. 60 tablet 2025 Active Asmanex HFA 100 MCG/ACT aerosol [...] IMMEDIATELY EVEN IF PATIENT RESPONDS. 2 each Active omeprazole (PriLOSEC) [address] capsule TAKE 2 CAPSULES BY MOUTH TWICE DAILY IN THE MORNING AND EVENING WITH FOOD 360 capsule Active Semaglutide,0.25 or 0.5MG/DOS, (Ozempic, 0.25 or 0.5 MG/DOSE,) 2 MG/3ML solution pen-injector Inject 0.5 mg under the skin 1 (one) time per week for 28 days. 3 mL 2024 Active guaiFENesin (Robitussin) 100 MG/5ML liquid Take 10 mL (200 mg) by mouth if needed in the morning, at noon, in the evening, and at bedtime for cough for up to 10 days. 180 mL 2024 Active acetaminophen (Tylenol 8 Hour) 650 MG ER tablet Take 1 tablet (650 mg) by mouth every 8 (eight) hours. 100 tablet 2025 Active hydrOXYzine pamoate (Vistaril) 25 MG capsuleIndications :Mood disorder (CMS/HCC) Take 1 capsule (25 mg) by mouth every 6 (six) hours if needed for anxiety. 60 capsule 025 2024 Active Diclofenac Sodium 1 % gel Apply 2 g topically if needed in the morning, at noon, in the evening, and at bedtime (pain). 150 g Active lidocaine (Lidoderm) 5 % patch Apply 1-2 patches topically Once per day. Remove & discard patch within 12 hours or as directed by MD. 60 patch 3 025 2025 Active baclofen (Lioresal) 10 MG tablet Take 1 tablet (10 mg) by mouth if needed in the morning, at noon, and at bedtime for muscle spasms. 60 tablet 3 025 2025 Active acetaminophen (Tylenol 8 Hour) 650 MG ER tablet Take 1 tablet (650 mg) by mouth every 8 (eight) hours. 60 tablet 2 024 2024 Discontinued(R eorder (will not trigger notification to Pharmacy)) hydrOXYzine pamoate (Vistaril) 25 MG capsuleIndications :Mood disorder (CMS/HCC) Take 1 capsule (25 mg) by mouth every 6 (six) hours if needed for anxiety. 60 capsule 2 024 2024 Discontinued(R eorder (will not trigger notification to Pharmacy)) Diclofenac Sodium 1 % gel Apply 2 g topically if needed in the morning, at noon, in the evening, and at bedtime (pain). 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, advised schedule f/u, contact info given -mammo [...] -she will meet w/ HIM RN re: MANAGER DOCUMENT svcs Obstructive sleep apnea 12/04/2014 Tobacco dependence [...] metformin and actos as rx'd -referred to [facility] pharm for CTDM -cont regular FS monitoring and bring glucometer to all visits for review -cont aspirin, statin, and lisinopril daily -referred to optho -foot exam next visit* Resolved Problems Problem Noted Date Diagnosed Date Resolved Date Left lower quadrant abdominal pain 03/19/2024 05/24/2024 Assessment & Plan (03/19/2024 10:31 AM EST): Exam concerning for non-reducible left inguinal hernia. Need to r/o incarceration. No evidence of bowel obstruction. Vitals stable. Pt agrees to go to ER for further evaluation. 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 05/04/2020 03/18/2022 Encounters Date Type Department Care Team Description 05/24/2024 12:00 PM EDT Office Visit [facility] [address] [place] [phone] Radha Jamison DO Influenza A (Primary Dx); Mood disorder (CMS/HCC); Chronic bilateral low back pain, unspecified whether sciatica present; 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, with long-term current use of insulin, macular edema presence unspecified, unspecified laterality (CMS/HCC) 05/24/2024 Telephone [facility] [address] [place] [address] Radha Jamison, 05/24/2024 Travel 05/20/2024 Patient Outreach [facility] [address] [place] [address] Radha Jamison, Care Coordination ([facility]- ED status check) 05/20/2024 Patient Outreach [facility] [address] [place] [address] Radha Jamison, 05/18/2024 Orders Only [facility] External Provider, [facility] 05/17/2024 Refill [facility] [address] [facility] [place] [address] Radha Jamison, Chronic bilateral low back pain, unspecified whether sciatica present 05/17/2024 Refill [facility] [address] [facility], [place] [address] Radha Jamison, Chronic bilateral low back pain, unspecified whether sciatica present 05/16/2024 Refill [facility] [address] [facility], [place] [address] Radha Jamison, Chronic bilateral low back pain, unspecified whether sciatica present 05/10/2024 Telephone [facility] [address] [facility], [place] [address] Ginna Stephen, RN Appointment Request 05/09/2024 Travel 05/08/2024 Telephone [facility] [address] [facility], [place] [address] Radha Jamison, Medication Question 05/07/2024 Telephone [facility] [address] [facility], [place] [address] Radha Jamison, Med Refill 05/07/2024 Refill [facility] [address] [facility], [place] [address] Radha Jamison DO 05/06/2024 Refill [facility] [address] [facility], [place] [address] Radha Jamison, Chronic bilateral low back pain, unspecified whether sciatica present 04/30/2024 Refill [facility] [address] [place] [address] Radha Jamison DO Chronic bilateral low back pain, unspecified whether sciatica present 04/29/2024 Refill [facility] [address] [place] [address] Radha Jamison DO 04/26/2024 Population Health Risk Score [facility] ([facility]) Department [address] [place] [phone] Provider, Population Health Generic 04/23/2024 Telephone [facility] [address] [facility], [place] [address] Radha Jamison DO FYI 04/19/2024 Refill [facility] [place] [address] Radha Jamison DO Chronic bilateral low back pain, unspecified whether sciatica present 04/17/2024 9:30 AM EST Clinical Support [facility], [place] [address] Acacia Chakraborty RN Chronic bilateral low back pain, unspecified whether sciatica present (Primary Dx) 04/17/2024 Telephone [facility], [place] [address] Acacia Chakraborty RN Needs PT1 04/17/2024 Travel 04/10/2024 Refill [facility] [address] [place] [address] Radha Jamison DO Chronic bilateral low back pain, unspecified whether sciatica present 04/05/2024 Refill [facility] [address] [place] [address] Radha Jamison DO 04/05/2024 Telephone [facility] [place] [address] Nelia Sullivan, Camron Prior Authorization (Ozempic ) 04/04/2024 Orders Only GENERIC EXTERNAL DATA DEPARTMENT Provider, Generic External Data 04/03/2024 10:30 AM EST Clinical Support [facility] [place] [address] Acacia Chakraborty RN Chronic bilateral low back pain, unspecified whether sciatica present (Primary Dx) 04/03/2024 Refill [facility] [address] [facility], [place] [address] Radha Jamison DO Hypertension, unspecified type 04/03/2024 Refill [facility] [address] [facility] [place] [address] Acacia Chakraborty, ladler bilateral low back pain, unspecified whether sciatica present 04/03/2024 Travel 04/03/2024 Refill [facility] [address] [facility] [place] [address] Nelia Sullivan, PharmD 03/26/2024 Refill [facility] [address] [place] [address] Paramjit Arias MD Chronic bilateral low back pain, unspecified whether sciatica present 03/26/2024 Telephone [facility] [address] [facility], [place] [address] Radha Jamison DO Medication Question 03/26/2024 Refill [facility] [address] [place] [address] Radha Jamison DO Chronic bilateral low back pain, unspecified whether sciatica present 03/21/2024 Refill [facility] [address] [place] [address] Radha Jamison DO Other chronic pain; Mood disorder (CMS/[facility]) 03/19/2024 10:00 AM EST Office Visit [facility] [address] [facility] [place] [address] Anna Jenkins MD Left lower quadrant abdominal pain (Primary Dx) 03/19/2024 9:00 AM EST Clinical Support [facility] [address] [facility], [place] [address] Acacia Chakraborty, ladler bilateral low back pain, unspecified whether sciatica present (Primary Dx) 03/19/2024 Telephone [facility] [address] [facility] [place] [address] Radha Jamison DO [facility] [place] expect 03/19/2024 Refill [facility] [address] [place] [address] Radha Jamison DO Chronic bilateral low back pain, unspecified whether sciatica present 03/19/2024 Refill [facility] [place] [place] [address] Acacia Chakraborty RN Chronic bilateral low back pain, unspecified whether sciatica present 03/19/2024 Travel 03/08/2024 Telephone [facility] [place] [place] [address] Nelia Sullivan PharmD Prior Authorization (Jenn 3 reader) 03/06/2024 Refill [facility] [place] [address] Radha Jamison DO Chronic bilateral low back pain, unspecified whether sciatica present 03/06/2024 Telephone [facility] [place] [place] [address] Nelia Sullivan PharmD Prior Authorization (Jenn 3 Hickman ([facility])) 03/06/2024 Telephone [facility] [place] [address] aRdha Jamison DO Med Refill 03/05/2024 10:00 AM EST Clinical Support [facility] [place] [place] [address] Acacia Chakraborty RN Spinal stenosis of lumbar region, unspecified whether neurogenic claudication present (Primary Dx) 03/05/2024 Telephone [facility] [place] [address] Radha Jamison DO Med Refill 03/05/2024 Telephone [facility] [place] [address] Acacia Chakraborty RN Oxy count discrepancy 03/05/2024 Travel 02/29/2024 Refill [facility] [place] [address] Radha Jamison DO Chronic bilateral low back pain, unspecified whether sciatica present 02/29/2024 Telephone [facility] [place] [address] Radha Jamison DO Lab Orders from Last 3 Months Immunizations Name Administration [...] with others, in a hotel, in a assisted, living outside on the street, on a [...] not want or need it 09/15 Comments No Sex and Gender Information Value Date Recorded Sex Assigned at Female 12/13/2021 10:16 AM EDT Legal Sex Female 10:16 AM EDT Gender Identity Choose not to disclose 10:16 AM EDT Sexual Orientation Straight 12/13/2021 10 :16 AM EDT Last Filed Vital Signs Vital Sign Reading Time Taken Comments Blood Pressure 160/70 05/24/2024 12:28 PM EDT Pulse 82 05/24/2024 12:28 PM EDT Temperature 36.8 ??C (98.3 ??F) 05/24/2024 12:28 PM E DT Respiratory Rate 20 05/24/2024 12:28 PM EDT Oxygen Saturation 97% 03/19/2024 9:57 AM EST Inhaled Oxygen Concentration - - Weight 64.4 kg (142 lb) 05/24/2024 12:28 PM EDT Height 152.4 cm (5') 05/24/2024 12:28 PM EDT Body Mass Index 27.73 05/24/2024 12:28 PM EDT Plan of Treatment Upcoming Encounters Date Type Department Care Team (Late st Contact Info) Description 06/14/2024 10:00 AM EDT Medication Management [facility] [address] [place] [phone] Nelia Sullivan, PharmD [address] [place] [address] 06/25/2024 9:45 AM EDT Office Visit [facility] [address] [place] [address] Radha Jamison DO [address] [place] [address] Health Maintenance Due Date Last Done Comments [...] 05/14/2024 05/15/2023, 07/15, 10/01/2021, Additional history exists Depression Monitoring 06/19/2024 12/21/2023, 024 SDOH Screening 07/30/2024 07/31/2023 Diabetes: Hemoglobin A1C 08/23/2024 025, 03/05/2024, 02/01/2024, Additional history exists Depression Screening 12/20/2024 12/21/2023, 12/21/19 24 Alcohol/Substance Use Screening 01/31/2025 02/01/2024 Tobacco Screening 05/24/2025 05/24/2024 HIV Screening Completed 08/08/2022, 10/01/2021 Hepatitis C [...] Result Component 10.3(05/25/19 12:32 PM EDT) No DellogAbdias cotto, PharmD Record your blood sugar as directed Result Component No Felice Sullivanyssa, PharmD Note: Use CGM, ensuring sensor is scanned at least once every 8 hours to capture 24H data. Check BG manually, as directed. 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 Hemoglobin A1C 10.3(A) 4.0 - 6.0 % QC Media Lot # [id number] Lot# Expiration Date , Blood 05/24/2024 12:3 2 PM EDT Radha Jamison DO POINT OF CARE TEST ENTER/BHARGAVI T ORDERABLES Final Result * (ABNORMAL) POCT Glucose (05/24/2024 12:32 PM EDT) Pathologist [facility] Glucose Blood, POC 412(A) 60 - 200 mg/dL QC Media Lot # [id number] Lot# Expiration Date Blood Capillary blood specimen / Unknown 05/24/2024 12:32 PM EDT Radha Jamison DO POINT OF CARE TEST ENTER/BHARGAVI T ORDERABLES Final Result * XR Chest 1 View (05/18/2024 9:48 PM EDT) Anatomical Region Laterality Modality Chest Radiographic Samantha ging 05/18/2024 9:48 PM EDT Narrative 05/18/2024 9:50 PM EDT ? [facility] ?[address] ?[place] [address] ?XRay Report ? Signed ? Patient: Rocío Hallman ?MR#: [id number] ?? [id number] ? : 1960 ?Acct:[id number] ? Age/Sex: 63 / F ?ADM Date: 04/05/25 ? Loc: HO.ED ? Attending Dr: ? Ordering Physician: Antonio Braun MD ?? Date of Service: 05/18/24 ?? Procedure(s): XR chest 1V ?? Accession Number(s): [id number] ? cc: Radha Jamison DO; nAtonio Braun MD ? CLINICAL HISTORY: cough ? 1 view chest x-ray ? Comparison: CR/SR - XR CHEST 1V - 11/11/23 00:23 EDT ? Findings: ?? Heart size borderline enlarged. 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 ?? Low lung volumes. ?? No consolidation, significant pleural effusion or pneumothorax. ?? Osseous structures appear stable. ? IMPRESSION: ?? 1. No acute findings. ? This document has been electronically signed by: Janette Dasilva MD on ?? 05/18/2024 21:48:49 ? Dictated By: ?Janette Dasilva MD ? Signed By: ?<Electronically signed by Janette Dasilva MD in OV> ? 05/18/24 2149 ? DD/ 47 ? TD/TT: 05/18/242147 ? Mast Maker: ? Procedure Note [place], Image - 05/18/2024 [place] [address] XRay Report Signed Patient: Rocío HallmanMR#: [id number] : 1960cct:[id number] Age/Sex: 63 / FADM Date: 05/18/24 Loc: HO.ED Attending Dr: Ordering Physician: Antonio Braun MD Date of Service: 05/18/24 Procedure(s): XR chest 1V Accession Number(s): [id number] cc: Radha Jamison DO; Antonio Braun MD CLINICAL HISTORY: cough 1 view chest x-ray Comparison: CR/SR - XR CHEST 1V - 11/11/23 00:23 EDT Findings: Heart size borderline enlarged. Atherosclerotic vascular disease of aortic arch. Low lung volumes. No consolidation, significant pleural effusion or pneumothorax. Osseous structures appear stable. IMPRESSION: 1. No acute findings. This document has been electronically signed by: Janette Dasilva MD on 05/18/2024 21:48:49 Dictated By: Janette Dasilva MD Signed By: <Electronically signed by Janette Dasilva MD in OV> 05/18/242148 DD/ 47 TD/TT: 05/18/242147 Mast Maker: [facility] External Provider IMG XR PROCEDURES Edited Result - Final * POCT GUERO-14 Urine Drug Screen (04/17/2024 9:32 AM EST) Only the most recent of4 resultswithin the time period is included. Oxycodone Screen, Urine Positive Urine Urine specimen obtained by clean catch procedure / Unknown 04/17/2024 9:32 AM EST Narrative Acacia Chakraborty RN - 04/17/2024 9:32 AM EST UTOX cup Lot#[id number] Exp. 10/02/25 Internal Pass Control Radha Jamison DO POINT OF CARE TEST ENTER/BHARGAVI T ORDERABLES Final Result * Vitamin B12 (04/04/2024 10:55 AM EST) Pathologist [facility] Vitamin B12 387 200 - 900 pg/mL [facility] Comment:NORMAL 200-900 PG/ML INDETERMINATE 160-199 PG/ML DEFICIENT < 160 PG/ML 04/04/2024 10:5 5 AM EST 04/04/2024 1:12 PM EST Radha Jamison DO LAB BLOOD ORDERABLES Final R esult [facility] [address] [place] [phone] * (ABNORMAL) Basic Metabolic Panel (04/04/2024 10:55 AM EST) Pathologist [facility] Sodium 140 135 - 145 mmol/L [facility] Potassium 4.4 3.3 - 5.1 mmol/L [facility] Chloride 107 96 - 108 mmol/L [facility] Carbon Dioxide 27 22 - 29 mmol/L [facility] Anion Gap 10(L) 12 - 20 [facility] Urea Nitrogen (BUN) 22(H) 9 - 16 mg/dL [facility] Creatinine, Serum 0.88 0.5 - 1.4 mg/dL [facility] Estimated Glomerular Filt Rate >60 [facility] Comment:Chronic Kidney Disea se: Estimated GFR < 60 mL/min/1.15l2Eebvcv Kidney Disease: Estimated GFR < 15 mL/min/1.73m2 Glucose 213(H) 60 - 115 mg/dL [facility] Calcium 9.0 8.4 - 10.2 mg/dL [facility] 04/04/2024 10:5 5 AM EST 04/04/2024 1:12 PM EST us Generic External Data Provider LAB BLOOD ORDERAB LES Final Result [facility] [address] [place] [phone] * (ABNORMAL) Lipid Panel, Standard (05/15/2023 8:21 AM EDT) Triglycerides 136 <150 mg/dL [facility] Comment:Desirable Triglyceri de: less than 150 mg/dLBorderline High Triglyceride 150-199 mg/dLHigh Triglyceride: 200-499 mg/dLVery High Triglyceride: greater than or equal to 5OO mg/dL Cholesterol 240(H) <200 mg/dL [facility] Comment:Desirable Cholestero l: less than 200 mg/dLBorderline High Cholesterol: 200-239 mg/dLHigh Cholesterol: greater than 239 mg/dL LDL Cholesterol Calculated 165(H) <100 mg/dL [facility] Comment:Desirable LDL: less than 100 mg/dLNear Optimal/Above Optimal LDL: 110- 129 mg/dLBorderline High LDL: 130-159 mg/dLHigh LDL: 160-189 mg/dLVery High LDL: greater than or equal to 190 mg/dL HDL Cholesterol 48 >40 mg/dL [facility] Comment:Desirable HDL: great er than 40 mg/dL Note: This HDL assay may give artificially low results in patients with liver disease. Blood Venous blood specimen / Unknown 05/15/2023 8:21 AM EDT 05/15/2023 8:21 AM EDT Radha Bowdenaarti DO LAB BLOOD ORDERABLES Final R esult Performing Organization Address City/[facility]/ZIP Co de Phone Number [facility] [address] [place] [phone] * (ABNORMAL) Albumin, Random Urine W/Creatinine (05/15/2023 8:20 AM EDT) Creatinine, Urine 105.69 mg/dL [facility] Microalbumin Urine 1,418.0 mg/L [facility] Microalbum Creatinine Ratio Ur 1,341.6(H ) <30 ug/mg cr [facility] Comment:Albumin/Creatinine R atio Reference Ranges: Normal: < 30 ug/mg creatinine Microalbuminuria: 30 - 300 ug/mg creatinineClinical Albuminuria: > 300 ug/mg creatinine Urine (Urine, Random) 05/15/2023 8:20 AM EDT 05/15/2023 8:31 AM EDT Radha Cannonmark DO LAB URINE ORDERABLES Final R esult Performing Organization Address City/[facility]/ZIP Co de Phone Number [facility] [address] [place] [phone] * Hepatitis C Antibody with Reflex to HCV RNA,PCR w/Reflex to Genotype, LiPA (08/08/2022 10:44 AM EDT) Hepatitis C Antibody NON-REACT ROMERO NON-REACT ROMERO [facility] Comment: HCV antibody was non-reactive. There is no laboratory evidence of HCV infection. In most cases, no further action is required. However, if recent HCV exposure is suspected, a test for HCV RNA (test code 19651) is suggested. For additional information, please refer to http://education.eCert/faq/PGY642 (This link is being provided for informational/ educational purposes only.) 08/08/2022 10:4 4 AM EDT 08/08/2022 10:45 AM EDT Narrative [facility] - 08/09/2022 7:27 PM EDT FASTING:YES COLLECTION KIT GIVEN TO PATIENT. PATIENT ADVISED TO RETURN. FASTING: YES Radha Jamison DO LAB BLOOD ORDERABLES Final R esult Performing Organization Address City/[facility]/ZIP Co de Phone Number [facility] [address], [facility] [place] [address] [employer] [place] [address] [phone] * HIV-1/2 Antigen and Antibodies, Fourth Generation, with Reflexes (08/08/2022 10:44 AM EDT) [facility] HIV Antigen/Antibody, 4th Generation NON-REAC TIVE NON-REAC TIVE [employer] [place] [employer] Comment: HIV-1 antigen and HIV-1/HIV-2 antibodies were [...] ?? For additional information please refer to http://education.Pictorama.Huy [place]/faq/URP307 (This link is being provided for informational/ [...] ORDERABLES Final R esult Performing Organization Address [facility]/ZIP Co de Phone Number [address], [facility] [place] [address] [employer]-Easiest Credit Card To Get Approved For [address] [place] [phone] * Mammography Report 1 (10/06/2021 1:35 PM EDT) Anatomical Region Laterality Modality Breast Bilateral Mammography 10/06/2021 1:35 PM EDT Narrative 10/06/2021 4:07 PM EDT Refer to the Notes tab for result details [facility] Procedure: Mammography Report 1 Procedure Note Provider, MD Roseann - 05/08/2022 Refer to the Notes tab for result details [facility] Procedure: Mammography Report 1 Radha Jamison DO IMG BI PROCEDURES Final Resu lt from Last 3 Months or Most Recently Relevant to Health Maintenance Insurance * Guarantor: Rocío Hallman Account Type Relation to Patient Date of Phone Billing Address Personal/Family Self 1960 [address] [facility] [address] [place] [address] [facility] C3 DENTAL-[facility] MEDICAID STAND ADULT Care Teams Critical Care Clinical Nurse Specialist Relationship Specialty Start Date End Date Radha Jamison DO [address] [place] [address] PCP - General Family Medicine 01/26/12 Nelia Sullivan, KeithD [address] [place] [address] Pharmacist Internal Medicine 08/31/23 Laurel Monterroso Band CutterDrivers License Examiner 10/27/22 Saige Aguilar 09/26/23
--- OUTSIDE RECORDS SUMMARY | 2024-05-29 11:19 | XMS_ITS | Encounter Summary ---
Author Organization [employer] Address [address] [facility] 7t [place] [address] Care Team Providers Care Cargo Agent Name Role Phone Radha Jamison DO Primary Care Provider [phone] DelAbdias hardy PharmD Unavailable Unavail able Nelia Sullivan PharmD Unavailable Reason for Visit * Reason Comments Med Refill Encounter Details Date Type Department Care Team (Late st Contact Info) Description 11/08/2022 Refill [facility] [address] [place], [place] [phone] Radha Jamison DO [address] [place] [address] Social History Tobacco Use Types Packs/Day Years [...] Description 06/14/2024 10:00 AM EDT Medication Management [facility] [place] [address] [place] [address] 06/25/2024 9:45 AM EDT Office Visit [facility] Preet [facility] [address] [place] [address] documented as of this encounter Goals Goal [...] documented as of this encounter Care Teams Cargo Agent Relationship Specialty Start Date End [place] [address] PCP - General Family Medicine 01/26/12 Abdias Murillo, PharmD [address] [place] [address] Pharmacist Internal Medicine 03/21/22 08/30/23 Neila Sullivan, PharmD [address] [place] [address] Pharmacist Internal Medicine 08/31/23 Laurel Monterroso Management Retail InternWeb Pressman 10/27/22 Saige Aguilar 09/26/23 documented as of this encounter
--- OUTSIDE RECORDS SUMMARY | 2024-05-29 11:20 | XMS_ITS | Encounter Summary ---
Author Organization [employer] [facility] Address [address] [facility] 7t [place] [address] Care Team Providers Care Feed Mill Tender Name Role Phone Radha Jamison DO Primary Care Provider DelAbdias hardy PharmD Unavailable Unavail able Nelia Sullivan PharmD Unavailable [phone] Reason for Visit * Reason Comments Med Refill Encounter Details Date Type Department Care Team ([facility] Contact Info) Description 01/31/2022 Refill [facility] [address] [place] [address] Radha Jamison DO 230 [place] [address] Chronic bilateral low back pain, unspecified whether [...] EDT Medication Management [facility] [address] [place] [address] Puia, Nelia, PharmD [address] [facility] [place] [address] 06/25/2024 9:45 AM EDT Office Visit [facility] [address] [place] [address] Radha Jamison DO [facility] [place] [address] documented as of this encounter Visit Diagnoses Diagnosis Chronic bilateral low back pain, unspecified whether sciatica present documented in this encounter Care Teams Feed Mill Tender Relationship Specialty Start Date End [place] [address] PCP - General Family Medicine 01/26/12 Abdias Murillo PharmD [facility] [place] [address] Pharmacist Internal Medicine 03/21/22 08/30/23 Nelia Sullivan, PharmD [facility] [place] [address] Pharmacist Internal Medicine 08/31/23 Laurel Monterroso Pricer BaggerCabinetmaker Helper 10/27/22 Saige Aguilar 09/26/23 documented as of this encounter
--- OUTSIDE RECORDS SUMMARY | 2024-05-29 11:20 | XMS_ITS | Encounter Summary ---
Author Organization [employer] Address [address] [facility] 7t [place] [address] Care Team Providers Care Professional Fee Coder Name Role Phone Radha Jamison DO Primary Care Provider [phone] Abdias Murillo PharmD Unavailable Unavail able Nelia Sullivan PharmD Unavailable [phone] Reason for Visit * Reason Comments Med Refill Encounter Details Date Type Department Care Team (Late st Contact Info) Description 12/21/2022 Refill [facility] [address] [place] [address] Radha Jamison DO [address] [place] [address] Chronic bilateral low back pain, unspecified whether [...] Description 06/14/2024 10:00 AM EDT Medication Management [facility] [address] [place] [address] Nelia Sullivan PharmD [address] [place] [address] 06/25/2024 9:45 AM EDT Office Visit [facility] [address] [place] [address] Radha Jamison DO [address] [place] [phone] documented as of this encounter Goals Goal [...] documented as of this encounter Care Teams Professional Fee Coder Relationship Specialty Start Date End Date Radha Jamison DO [address] [place] [address] PCP - General Family Medicine 01/26/12 Abdias Murillo, KeithD [address] [place] [address] Pharmacist Internal Medicine 03/21/22 08/30/23 Nelia Sullivan, KeithD [address] [place] [address] Pharmacist Internal Medicine 08/31/23 Laurel Monterroso LeacherOffice Cleaner 10/27/22 Saige Aguilar 09/26/23 documented as of this encounter
--- OUTSIDE RECORDS SUMMARY | 2024-05-29 11:20 | XMS_ITS | Encounter Summary ---
Author Organization [employer] Address [address] [facility] 7t [place] [address] Care Team Providers Care Comb Machine Operator Name Role Phone Radha Jamison DO Primary Care Provider [phone]- [phone] Abdias Murillo PharmD Unavailable Unavail able Nelia Sullivan PharmD Unavailable [phone] Reason for Visit * Reason Onset Date Comments Appointment Request 03/09/2023 Encounter Details Date Type Department Care Team ([facility] st Contact Info) Description 03/09/2023 Telephone [facility] [address] [place], [place] [phone] Radha Jamison DO [address] [place] [address] Appointment Request Social History Tobacco Use Types [...] denied any concerns. Please contact pt at [phone] documented in this encounter Plan of Treatment Upcoming Encounters Date Type Department Care Team (Late st Contact Info) Description 06/14/2024 10:00 AM EDT Medication Management [facility] [address] [place] [phone] Nelia Sullivan PharmD [address] [place] [address] 06/25/2024 9:45 AM EDT Office Visit [facility] [address] [place] [phone] Radha Jamison DO [address] [place] [address] documented as of this encounter Goals Goal [...] documented as of this encounter Care Teams Comb Machine Operator Relationship Specialty Start Date End Date Radha Jamison DO [address] [place] [address] PCP - General Family Medicine 01/26/12 Abdias Murillo, KeithD [address] [place] [address] Pharmacist Internal Medicine 03/21/22 08/30/23 Nelia Sullivan PharmD [address] [place] [address] Pharmacist Internal Medicine 08/31/23 Laurel Monterroso Credit Risk OfficerOrdnance Artificer Helper 10/27/22 Saige Aguilar 09/26/23 documented as of this encounter
--- OUTSIDE RECORDS SUMMARY | 2024-05-29 11:20 | XMS_ITS | Encounter Summary ---
Author Organization [employer] Address [address] [facility] 7t [place] [address] Care Team Providers Care Journalism Intern Name Role Phone Radha Jamison DO Primary Care Provider [phone] Nelia Sullivan PharmD Unavailable [phone] Reason for Visit * Reason Comments Med Refill Encounter Details Date Type Department Care Team ([facility] st Contact Info) Description 11/21/2023 Refill [facility] [address] [place], [place] [phone] Radha Jamison DO [address] [place] [address] Chronic bilateral low back pain, unspecified whether [...] Description 06/14/2024 10:00 AM EDT Medication Management [facility] [address] [place] [phone] AnaiiaNelia, PharmD [address] [place] [address] 06/25/2024 9:45 AM EDT Office Visit [facility] [address] [place] [address] Radha Jamison DO [address] [place] [address] documented as of this encounter Goals Goal [...] documented as of this encounter Care Teams Journalism Intern Relationship Specialty Start Date End Date Radha Jamison DO [address] [place] [address] PCP - General Family Medicine 01/26/12 Nelia Sullivan PharmD [address] [place] [address] Pharmacist Internal Medicine 08/31/23 Laurel Monterroso Home Health LvnPrivate Duty Nurse 10/27/22 Saige Aguilar 09/26/23 documented as of this encounter
--- OUTSIDE RECORDS SUMMARY | 2024-05-29 11:20 | XMS_ITS | Encounter Summary ---
Author Organization [facility] Address [address] [place] [address] Care Team Providers Care Driver'S License Reviewing Officer Name Role Phone Radha Jamison DO Primary Care Provider [phone] DellogAbdias cotto PharmD Unavailable Unavail able PuNelia cortes PharmD Unavailable [phone] Encounter Details Date Type Department Care Team (Late st Contact Info) Description 02/03/2022 Orders Only [facility] [address] [place] [address] Radha Jamison DO [address] [place] [address] Social History Tobacco Use Types Packs/Day Years [...] EDT Medication Management [facility] [address] [place] [address] Puia, Nelia, PharmD [address] [place] [address] 06/25/2024 9:45 AM EDT Office Visit [facility] [address] [place] [phone] Radha Jamison DO [address], [place] [address] documented as of this encounter Procedures Procedure [...] Sedimentation Rate 23(H) 0 - 20 MM/HR [facility] Comment:Patients with polycy themia and many hemoglobin abnormalitiesmay have depressed sed rates whereas patients with anemiamay have elevated sed rates. 04/24/2022 4:19 PM EDT 04/24/2022 4:27 PM EDT [facility] External Provider LAB BLO OD ORDERABLES Final Result Performing Organization Address [facility] Co de Phone Number [facility] [address] [place] [address] [phone] * C-reactive Protein (04/24/2022 4:19 PM EDT) Pathologist [facility] C Reactive Protein 0.28 < or = 0.50 mg/dL [facility] 04/24/2022 4:19 PM EDT 04/24/2022 4:22 PM EDT [facility] External Provider LAB BLO OD ORDERABLES Final Result Performing Organization Address [facility] Co de Phone Number [facility] [address] [place] [phone] * Magnesium (04/24/2022 4:19 PM EDT) [facility] Magnesium 1.7 1.6 - 2.6 mg/dL [facility] 04/24/2022 4:19 PM EDT 04/24/2022 4:22 PM EDT [facility] External Provider LAB BLO OD ORDERABLES Final Result Performing Organization Address [facility] de Phone Number [facility] [address] [place] [phone] * (ABNORMAL) Basic Metabolic Panel (04/24/2022 4:19 PM EDT) [facility] Sodium 135 135 - 145 mmol/L [facility] Potassium 4.7 3.3 - 5.1 mmol/L [facility] Chloride 100 96 - 108 mmol/L [facility] Carbon Dioxide 27 22 - 29 mmol/L [facility] Anion Gap 13 12 - 20 [facility] Urea Nitrogen (BUN) 20(H) 9 - 16 mg/dL [facility] Creatinine, Serum 1.01 0.5 - 1.4 mg/dL [facility] Creatinine Clr Calc Pharmacy 48.8 [facility] Comment:Provided height and weight: 152.4 cm,62.4 kg.eGFR (calculated from the MDRD study equation) and eCrCl(calculated from the Cockcroft-Gault equation) are based ondifferent parameters and may not yield comparable results.If eCrCl result is absurd, please check patient'sheight/weight. Estimated Glomerular Filt Rate 56 [facility] Comment:NOTE: For -Am erican individuals, multiply the result by 1.210.Chronic Kidney Disease: Estimated GFR < 60 mL/min/[id number] Kidney Disease: Estimated GFR < 15 mL/min/1.73m2 Glucose 269(H) 60 - 115 mg/dL [facility] Calcium 9.2 8.4 - 10.2 mg/dL [facility] 04/24/2022 4:19 PM EDT 04/24/2022 4:22 PM EDT [facility] External Provider LAB BLO OD ORDERABLES Final Result [facility] [address] [place] [address] [phone] * Hepatic Function Panel (04/24/2022 4:19 PM EDT) Bilirubin, Total 0.6 0.0 - 1.0 mg/dL [facility] Bilirubin, Direct <0.2 0.0 - 0.5 mg/dL [facility] Aspartate Amino Transferase 11 5 - 31 U/L [facility] Alanine Aminotransferase 6 0 - 31 U/L [facility] Total Protein 6.5 6.5 - 8.0 g/dL [facility] Albumin Level 4.0 3.5 - 5.0 g/dL [facility] Alkaline Phosphatase 80 39 - 117 U/L [facility] 04/24/2022 4:19 PM EDT 04/24/2022 4:22 PM EDT us [facility] External Provider LAB BLO OD ORDERABLES Final Result [facility] [address], [place] [phone] * (ABNORMAL) CBC auto differential (04/24/2022 4:19 PM EDT) White Blood Count 7.3 4.8 - 10.8 X10*3/uL [facility] Red Blood Count 4.14(L) 4.20 - 5.50 X10*6/uL [facility] Hemoglobin 12.1 12.0 - 16.0 g/dl [facility] Hematocrit 36.6(L) 37.0 - 47.0 % [facility] Mean Corpuscular Volume 88.4 80.0 - 98.0 fL [facility] Mean Corpuscular Hemoglobin 29.2 27.0 - 33.0 pg [facility] Mean Corpuscular HGB Conc 33.1 31.0 - 35.0 g/dl [facility] Red Cell Distribution Width 13.4 11.0 - 16.0 % [facility] Platelet Count 333 160 - 400 X10*3/uL [facility] Mean Platelet Volume 8.9(L) 9.4 - 12.3 fL [facility] Neutrophils Percent Auto 62.4 45 - 73 % [facility] Imm Gran Pct Auto 0.3 0.0 - 0.4 % [facility] Lymphocytes Percent Auto 28.8 20 - 40 % [facility] Monocytes Percent Auto 5.3 2 - 11 % [facility] Eosinophils Percent Auto 2.7 0 - 4 % [facility] Basophils Percent Auto 0.5 0 - 2 % [facility] NRBC Pct Auto 0.0 0.0 - 0.2 /100WBC [facility] Neutrophils Absolute Auto 4.6 2.0 - 8.3 x10*3/uL [facility] Imm Gran Abs Auto 0.02 0.00 - 0.03 X10*3/uL [facility] Lymphocytes Absolute Auto 2.1 1.2 - 4.9 X10*3/uL [facility] Monocytes Absolute Auto 0.4 0.1 - 1.2 X10*3/uL [facility] Eosinophils Absolute Auto 0.2 0.0 - 0.4 X10*3/uL [facility] Basophils Absolute Auto 0.0 0.0 - 0.2 X10*3/uL [facility] NRBC Abs Auto 0.000 0.0 - 0.012 X10*3/uL [facility] 04/24/2022 4:19 PM EDT 04/24/2022 4:22 PM EDT us [facility] External Provider LAB BLO OD ORDERABLES Final Result [facility] [address] [place] [address] [phone] * (ABNORMAL) Urinalysis, Complete, with Reflex to Culture (04/17/2022 10:53 AM EST) Color Urine Yellow [facility] Appearance Urine Clear [facility] PH 7.5 5.0 - 9.0 [facility] Glucose Urine UA 100(A) Negative mg/dL [facility] Urine Blood Negative Negative [facility] Specific [place] - Urine >=1.030(H) 1.005 - 1.025 [facility] Urine Protein 100 (2+)(A) Neg-Trace mg/dL [facility] Urine Ketones Negative Negative mg/dL [facility] Nitrite Urine Negative Negative [facility] Leukocyte Esterase Urine Negative Negative [facility] RBC Urine 3-5(A) 0 - 2 /HPF [facility] Urine WBC 0-5 0 - 5 /HPF [facility] Urine Squamous Epithelial Cell 3-5 0 - 2 /HPF [facility] Urine Bacteria None Seen None Seen [facility] Hyaline Casts, Urine 0-2 0 - 2 /LPF [facility] 04/17/2022 10:5 3 AM EST 04/17/2022 10:56 AM EST Narrative [facility] - 04/17/2022 11:06 AM EST Urine, Clean Catch [facility] External Provider LAB URI NE ORDERABLES Final Result Performing Organization Address [facility] Co de Phone Number [facility] [address] [place] [phone] * (ABNORMAL) Sed Rate by Modified Kamaljitergren (04/17/2022 8:21 AM EST) Erythrocyte Sedimentation Rate 23(H) 0 - 20 MM/HR [facility] Comment:Patients with polycy themia and many hemoglobin abnormalitiesmay have depressed sed rates whereas patients with anemiamay have elevated sed rates. 04/17/2022 8:21 AM EST 04/17/2022 8:41 AM EST [facility] External Provider LAB BLO OD ORDERABLES Final Result Performing Organization Address [facility] Co de Phone Number [facility] [address] [place] [phone] * Lipase (04/17/2022 8:21 AM EST) Lipase 10 8 - 78 U/L [facility] 04/17/2022 8:21 AM EST 04/17/2022 8:24 AM EST [facility] External Provider LAB BLO OD ORDERABLES Final Result Performing Organization Address [facility] Co de Phone Number [facility] [address] [place] [phone] * C-reactive Protein (04/17/2022 8:21 AM EST) C Reactive Protein 0.23 < or = 0.50 mg/dL [facility] 04/17/2022 8:21 AM EST 04/17/2022 8:24 AM EST [facility] External Provider LAB BLO OD ORDERABLES Final Result Performing Organization Address [facility] Co de Phone Number [facility] [address] [place] [phone] * Magnesium (04/17/2022 8:21 AM EST) Magnesium 1.6 1.6 - 2.6 mg/dL [facility] 04/17/2022 8:21 AM EST 04/17/2022 8:24 AM EST [facility] External Provider LAB BLO OD ORDERABLES Final Result Performing Organization Address [facility] Phone Number [facility] [address] [place] [phone] * (ABNORMAL) Hepatic Function Panel (04/17/2022 8:21 AM EST) Bilirubin, Total 0.7 0.0 - 1.0 mg/dL [facility] Bilirubin, Direct <0.2 0.0 - 0.5 mg/dL [facility] Aspartate Amino Transferase 10 5 - 31 U/L [facility] Alanine Aminotransferase 7 0 - 31 U/L [facility] Total Protein 6.2(L) 6.5 - 8.0 g/dL [facility] Albumin Level 3.8 3.5 - 5.0 g/dL [facility] Alkaline Phosphatase 71 39 - 117 U/L [facility] 04/17/2022 8:21 AM EST 04/17/2022 8:24 AM EST [facility] External Provider LAB BLO OD ORDERABLES Final Result Performing Organization Address [facility] Co de Phone Number [facility] [address] [place] [phone] * (ABNORMAL) Basic Metabolic Panel (04/17/2022 8:21 AM EST) Sodium 138 135 - 145 mmol/L [facility] Potassium 4.9 3.3 - 5.1 mmol/L [facility] Chloride 104 96 - 108 mmol/L [facility] Carbon Dioxide 26 22 - 29 mmol/L [facility] Anion Gap 13 12 - 20 [facility] Urea Nitrogen (BUN) 17(H) 9 - 16 mg/dL [facility] Creatinine, Serum 0.79 0.5 - 1.4 mg/dL [facility] Creatinine Clr Calc Pharmacy 66.3 [facility] Comment:Provided height and weight: 157.48 cm,63.503 kg.eGFR (calculated from the MDRD study equation) and eCrCl(calculated from the Cockcroft-Gault equation) are based ondifferent parameters and may not yield comparable results.If eCrCl result is absurd, please check patient'sheight/weight. Estimated Glomerular Filt Rate >60 [facility] Comment:NOTE: For -Am erican individuals, multiply the result by 1.210.Chronic Kidney Disease: Estimated GFR < 60 mL/min/1.89e1Jsbgsw Kidney Disease: Estimated GFR < 15 mL/min/1.73m2 Glucose 272(H) 60 - 115 mg/dL [facility] Calcium 9.1 8.4 - 10.2 mg/dL [facility] 04/17/2022 8:21 AM EST 04/17/2022 8:24 AM EST us [facility] External Provider LAB BLO OD ORDERABLES Final Result [facility] [address] [place] [phone] * (ABNORMAL) CBC auto differential (04/17/2022 8:21 AM EST) White Blood Count 5.7 4.8 - 10.8 X10*3/uL [facility] Red Blood Count 4.01(L) 4.20 - 5.50 X10*6/uL [facility] Hemoglobin 11.7(L) 12.0 - 16.0 g/dl [facility] Hematocrit 35.9(L) 37.0 - 47.0 % [facility] Mean Corpuscular Volume 89.5 80.0 - 98.0 fL [facility] Mean Corpuscular Hemoglobin 29.2 27.0 - 33.0 pg [facility] Mean Corpuscular HGB Conc 32.6 31.0 - 35.0 g/dl [facility] Red Cell Distribution Width 13.4 11.0 - 16.0 % [facility] Platelet Count 309 160 - 400 X10*3/uL [facility] Mean Platelet Volume 9.3(L) 9.4 - 12.3 fL [facility] Neutrophils Percent Auto 60.9 45 - 73 % [facility] Imm Gran Pct Auto 0.4 0.0 - 0.4 % [facility] Lymphocytes Percent Auto 27.3 20 - 40 % [facility] Monocytes Percent Auto 6.3 2 - 11 % [facility] Eosinophils Percent Auto 4.4(H) 0 - 4 % [facility] Basophils Percent Auto 0.7 0 - 2 % [facility] NRBC Pct Auto 0.0 0.0 - 0.2 /100WBC [facility] Neutrophils Absolute Auto 3.5 2.0 - 8.3 x10*3/uL [facility] Imm Gran Abs Auto 0.02 0.00 - 0.03 X10*3/uL [facility] Lymphocytes Absolute Auto 1.6 1.2 - 4.9 X10*3/uL [facility] Monocytes Absolute Auto 0.4 0.1 - 1.2 X10*3/uL [facility] Eosinophils Absolute Auto 0.3 0.0 - 0.4 X10*3/uL [facility] Basophils Absolute Auto 0.0 0.0 - 0.2 X10*3/uL [facility] NRBC Abs Auto 0.000 0.0 - 0.012 X10*3/uL [facility] 04/17/2022 8:21 AM EST 04/17/2022 8:24 AM EST [facility] External Provider LAB BLO OD ORDERABLES Final Result Performing Organization Address City/[facility]/ZIP Co de Phone Number [facility] [address] [place] [phone] * Creatinine, Serum (04/13/2022 7:33 AM EST) Creatinine, Serum 0.75 0.5 - 1.4 mg/dL [facility] Creatinine Clr Calc Pharmacy 70.3 [facility] Comment:Provided height and weight: 157.48 cm,64.41 kg.eGFR (calculated from the MDRD study equation) and eCrCl(calculated from the Cockcroft-Gault equation) are based ondifferent parameters and may not yield comparable results.If eCrCl result is absurd, please check patient'sheight/weight. Estimated Glomerular Filt Rate >60 [facility] Comment:NOTE: For -Am erican individuals, multiply the result by 1.210.Chronic Kidney Disease: Estimated GFR < 60 mL/min/1.26h1Beankw Kidney Disease: Estimated GFR < 15 mL/min/1.73m2 04/13/2022 7:33 AM EST 04/13/2022 7:38 AM EST [facility] External Provider LAB BLO OD ORDERABLES Final Result Performing Organization Address City/[facility]/ZIP Co de Phone Number [facility] [address] [place] [phone] * BUN (Blood Urea Nitrogen) (04/13/2022 7:33 AM EST) Urea Nitrogen (BUN) 12 9 - 16 mg/dL [facility] 04/13/2022 7:33 AM EST 04/13/2022 7:38 AM EST us [facility] External Provider LAB BLO OD ORDERABLES Final Result [facility] [address] [place] [phone] * (ABNORMAL) CBC auto differential (04/13/2022 7:33 AM EST) White Blood Count 6.6 4.8 - 10.8 X10*3/uL [facility] Red Blood Count 4.12(L) 4.20 - 5.50 X10*6/uL [facility] Hemoglobin 12.1 12.0 - 16.0 g/dl [facility] Hematocrit 36.6(L) 37.0 - 47.0 % [facility] Mean Corpuscular Volume 88.8 80.0 - 98.0 fL [facility] Mean Corpuscular Hemoglobin 29.4 27.0 - 33.0 pg [facility] Mean Corpuscular HGB Conc 33.1 31.0 - 35.0 g/dl [facility] Red Cell Distribution Width 13.6 11.0 - 16.0 % [facility] Platelet Count 291 160 - 400 X10*3/uL [facility] Mean Platelet Volume 9.0(L) 9.4 - 12.3 fL [facility] Neutrophils Percent Auto 55.5 45 - 73 % [facility] Imm Gran Pct Auto 0.2 0.0 - 0.4 % [facility] Lymphocytes Percent Auto 33.7 20 - 40 % [facility] Monocytes Percent Auto 6.5 2 - 11 % [facility] Eosinophils Percent Auto 3.6 0 - 4 % [facility] Basophils Percent Auto 0.5 0 - 2 % [facility] NRBC Pct Auto 0.0 0.0 - 0.2 /100WBC [facility] Neutrophils Absolute Auto 3.7 2.0 - 8.3 x10*3/uL [facility] Imm Gran Abs Auto 0.01 0.00 - 0.03 X10*3/uL [facility] Lymphocytes Absolute Auto 2.2 1.2 - 4.9 X10*3/uL [facility] Monocytes Absolute Auto 0.4 0.1 - 1.2 X10*3/uL [facility] Eosinophils Absolute Auto 0.2 0.0 - 0.4 X10*3/uL [facility] Basophils Absolute Auto 0.0 0.0 - 0.2 X10*3/uL [facility] NRBC Abs Auto 0.000 0.0 - 0.012 X10*3/uL [facility] 04/13/2022 7:33 AM EST 04/13/2022 7:38 AM EST [facility] External Provider LAB BLO OD ORDERABLES Final Result Performing Organization Address [facility] Co de Phone Number [facility] [address] [place] [address] [phone] * (ABNORMAL) GLUCOSE, WHOLE BLOOD (04/13/2022 7:27 AM EST) Glucose, Whole Blood 197(H) 60 - 115 mg/dL [facility] Comment:METER #: [id number] 04/13/2022 7:27 AM EST 04/13/2022 7:31 AM EST [facility] External Provider LAB BLO OD ORDERABLES Final Result Performing Organization Address [facility] de Phone Number [facility] [address] [place] [address] [phone] * HIGH SENSITIVITY TROPONIN I (04/03/2022 8:36 PM EST) TROPONIN I HIGH SENSITIVITY 6.0 <3.5 - 17.0 ng/L [facility] Comment:The Ibrahim high sens itivity Troponin-I results should beused in conjunction with other diagnostic information suchas ECG, clinical observations and information, and patientsymptoms to aid in the diagnosis of [place]. 04/03/2022 8:36 PM EST 04/03/2022 8:38 PM EST [facility] External Provider LAB BLO OD ORDERABLES Final Result Performing Organization Address City/[facility]/ZIP Co de Phone Number [facility] [address] [place] [phone] * Lipase (04/03/2022 8:36 PM EST) Lipase 10 8 - 78 U/L [facility] 04/03/2022 8:36 PM EST 04/03/2022 8:38 PM EST [facility] External Provider LAB BLO OD ORDERABLES Final Result Performing Organization Address [facility] Co de Phone Number [facility] [address] [place] [phone] * (ABNORMAL) Basic Metabolic Panel (04/03/2022 8:36 PM EST) Sodium 138 135 - 145 mmol/L [facility] Potassium 3.9 3.3 - 5.1 mmol/L [facility] Chloride 104 96 - 108 mmol/L [facility] Carbon Dioxide 27 22 - 29 mmol/L [facility] Anion Gap 11(L) 12 - 20 [facility] Urea Nitrogen (BUN) 11 9 - 16 mg/dL [facility] Creatinine, Serum 0.74 0.5 - 1.4 mg/dL [facility] Creatinine Clr Calc Pharmacy 70.7 [facility] Comment:Provided height and weight: 157.48 cm,63.503 kg.eGFR (calculated from the MDRD study equation) and eCrCl(calculated from the Cockcroft-Gault equation) are based ondifferent parameters and may not yield comparable results.If eCrCl result is absurd, please check patient'sheight/weight. Estimated Glomerular Filt Rate >60 [facility] Comment:NOTE: For -Am erican individuals, multiply the result by 1.210.Chronic Kidney Disease: Estimated GFR < 60 mL/min/1.09g1Hvrfzw Kidney Disease: Estimated GFR < 15 mL/min/1.73m2 Glucose 246(H) 60 - 115 mg/dL [facility] Calcium 9.0 8.4 - 10.2 mg/dL [facility] 04/03/2022 8:36 PM EST 04/03/2022 8:38 PM EST [facility] External Provider LAB BLO OD ORDERABLES Final Result Performing Organization Address [facility] Co de Phone Number [facility] [address] [place] [address] [phone] * (ABNORMAL) Hepatic Function Panel (04/03/2022 8:36 PM EST) Bilirubin, Total 0.6 0.0 - 1.0 mg/dL [facility] Bilirubin, Direct 0.2 0.0 - 0.5 mg/dL [facility] Aspartate Amino Transferase 10 5 - 31 U/L [facility] Alanine Aminotransferase 8 0 - 31 U/L [facility] Total Protein 5.8(L) 6.5 - 8.0 g/dL [facility] Albumin Level 3.7 3.5 - 5.0 g/dL [facility] Alkaline Phosphatase 76 39 - 117 U/L [facility] 04/03/2022 8:36 PM EST 04/03/2022 8:38 PM EST [facility] External Provider LAB BLO OD ORDERABLES Final Result Performing Organization Address [facility] Co de Phone Number [facility] [address] [place] [address] [phone] * (ABNORMAL) CBC auto differential (04/03/2022 8:36 PM EST) White Blood Count 6.0 4.8 - 10.8 X10*3/uL [facility] Red Blood Count 4.10(L) 4.20 - 5.50 X10*6/uL [facility] Hemoglobin 12.0 12.0 - 16.0 g/dl [facility] Hematocrit 35.6(L) 37.0 - 47.0 % [facility] Mean Corpuscular Volume 86.8 80.0 - 98.0 fL [facility] Mean Corpuscular Hemoglobin 29.3 27.0 - 33.0 pg [facility] Mean Corpuscular HGB Conc 33.7 31.0 - 35.0 g/dl [facility] Red Cell Distribution Width 13.3 11.0 - 16.0 % [facility] Platelet Count 276 160 - 400 X10*3/uL [facility] Mean Platelet Volume 9.2(L) 9.4 - 12.3 fL [facility] Neutrophils Percent Auto 58.2 45 - 73 % [facility] Imm Gran Pct Auto 0.2 0.0 - 0.4 % [facility] Lymphocytes Percent Auto 32.9 20 - 40 % [facility] Monocytes Percent Auto 6.0 2 - 11 % [facility] Eosinophils Percent Auto 2.2 0 - 4 % [facility] Basophils Percent Auto 0.5 0 - 2 % [facility] NRBC Pct Auto 0.0 0.0 - 0.2 /100WBC [facility] Neutrophils Absolute Auto 3.5 2.0 - 8.3 x10*3/uL [facility] Imm Gran Abs Auto 0.01 0.00 - 0.03 X10*3/uL [facility] Lymphocytes Absolute Auto 2.0 1.2 - 4.9 X10*3/uL [facility] Monocytes Absolute Auto 0.4 0.1 - 1.2 X10*3/uL [facility] Eosinophils Absolute Auto 0.1 0.0 - 0.4 X10*3/uL [facility] Basophils Absolute Auto 0.0 0.0 - 0.2 X10*3/uL [facility] NRBC Abs Auto 0.000 0.0 - 0.012 X10*3/uL [facility] 04/03/2022 8:36 PM EST 04/03/2022 8:38 PM EST [facility] External Provider LAB BLO OD ORDERABLES Final Result Performing Organization Address [facility] Co de Phone Number [facility] [address] [place] [address] [phone] * (ABNORMAL) GLUCOSE, WHOLE BLOOD (04/03/2022 7:56 PM EST) Glucose, Whole Blood 227(H) 60 - 115 mg/dL [facility] Comment:METER #: [id number] 04/03/2022 7:56 PM EST 04/03/2022 8:01 PM EST [facility] External Provider LAB BLO OD ORDERABLES Final Result Performing Organization Address [facility] de Phone Number [facility] [address] [place] [phone] * (ABNORMAL) B Type Natriuretic Peptide (BNP) (03/09/2022 5:39 PM EST) Pathologist [facility] B Type Natriuretic Peptide 125(H) <100 pg/mL [facility] Comment:For those patients w ho are being treated with Natrecor(nesiritide, recombinant BNP), BNP testing should beperformed at least two hours post treatment in order toensure that only endogenous levels of BNP are detected. 03/09/2022 5:39 PM EST 03/09/2022 6:48 PM EST [facility] External Provider LAB BLO OD ORDERABLES Final Result Performing Organization Address [facility] Co de Phone Number [facility] [address] [place] [phone] * SARS-CoV-2 RNA, Influenza A/B, and RSV RNA, Ql NAAT (03/09/2022 5:39 PM EST) Influenza A PCR NEGATIVE Negative [facility] Influenza B PCR NEGATIVE Negative [facility] Resp Syncy Virus RNA Qual PCR NEGATIVE Negative [facility] SARS COV2 PCR NEGATIVE Negative [facility] SARS/Flu/RSV Note See Note [facility] Comment:All test results mus t [...] use by authorized laboratories.Testing performed on the [employer] GeneXpert utilizingreal-time RT-PCR.All SARS CoV2 and positive influenza A/B results arereported to [facility]. 03/09/2022 5:39 PM EST 03/09/2022 5:43 PM EST [facility] Exter nal Provider LAB MICROBIOLOGY - GENERAL ORDERABLES Final Result Performing Organization Address [facility] de Phone Number [facility] [address] [place] [address] [phone] * HIGH SENSITIVITY TROPONIN I (03/09/2022 5:39 PM EST) Pathologist [facility] TROPONIN I HIGH SENSITIVITY 5.6 <3.5 - 17.0 ng/L [facility] Comment:The Ibrahim high sens itivity Troponin-I results should beused in conjunction with other diagnostic information suchas ECG, clinical observations and information, and patientsymptoms to aid in the diagnosis of [place]. 03/09/2022 5:39 PM EST 03/09/2022 5:43 PM EST [facility] External Provider LAB BLO OD ORDERABLES Final Result [facility] [address] [place] [phone] [phone] * (ABNORMAL) Comprehensive Metabolic Panel (03/09/2022 5:39 PM EST) Sodium 139 135 - 145 mmol/L [facility] Potassium 3.9 3.3 - 5.1 mmol/L [facility] Chloride 103 96 - 108 mmol/L [facility] Carbon Dioxide 27 22 - 29 mmol/L [facility] Anion Gap 13 12 - 20 [facility] Urea Nitrogen (BUN) 18(H) 9 - 16 mg/dL [facility] Creatinine, Serum 0.95 0.5 - 1.4 mg/dL [facility] Creatinine Clr Calc Pharmacy 53.0 [facility] Comment:Provided height and weight: 152.4 cm,65.2 kg.eGFR (calculated from the MDRD study equation) and eCrCl(calculated from the Cockcroft-Gault equation) are based ondifferent parameters and may not yield comparable results.If eCrCl result is absurd, please check patient'sheight/weight. Estimated Glomerular Filt Rate >60 [facility] Comment:NOTE: For -Am erican individuals, multiply the result by 1.210.Chronic Kidney Disease: Estimated GFR < 60 mL/min/1.58d4Azgmir Kidney Disease: Estimated GFR < 15 mL/min/1.73m2 Glucose 326(H) 60 - 115 mg/dL [facility] Calcium 9.1 8.4 - 10.2 mg/dL [facility] Bilirubin, Total 0.3 0.0 - 1.0 mg/dL [facility] Aspartate Amino Transferase 8 5 - 31 U/L [facility] Alanine Aminotransferase <6 0 - 31 U/L [facility] Total Protein 5.9(L) 6.5 - 8.0 g/dL [facility] Albumin Level 3.6 3.5 - 5.0 g/dL [facility] Alkaline Phosphatase 81 39 - 117 U/L [facility] 03/09/2022 5:39 PM EST 03/09/2022 5:43 PM EST [facility] External Provider LAB BLO OD ORDERABLES Final Result [facility] [address] [place] [address] [phone] * (ABNORMAL) CBC auto differential (03/09/2022 5:39 PM EST) White Blood Count 7.3 4.8 - 10.8 X10*3/uL [facility] Red Blood Count 4.03(L) 4.20 - 5.50 X10*6/uL [facility] Hemoglobin 11.7(L) 12.0 - 16.0 g/dl [facility] Hematocrit 35.1(L) 37.0 - 47.0 % [facility] Mean Corpuscular Volume 87.1 80.0 - 98.0 fL [facility] Mean Corpuscular Hemoglobin 29.0 27.0 - 33.0 pg [facility] Mean Corpuscular HGB Conc 33.3 31.0 - 35.0 g/dl [facility] Red Cell Distribution Width 13.4 11.0 - 16.0 % [facility] Platelet Count 296 160 - 400 X10*3/uL [facility] Mean Platelet Volume 9.3(L) 9.4 - 12.3 fL [facility] Neutrophils Percent Auto 63.9 45 - 73 % [facility] Imm Gran Pct Auto 0.1 0.0 - 0.4 % [facility] Lymphocytes Percent Auto 27.1 20 - 40 % [facility] Monocytes Percent Auto 5.9 2 - 11 % [facility] Eosinophils Percent Auto 2.6 0 - 4 % [facility] Basophils Percent Auto 0.4 0 - 2 % [facility] NRBC Pct Auto 0.0 0.0 - 0.2 /100WBC [facility] Neutrophils Absolute Auto 4.6 2.0 - 8.3 x10*3/uL [facility] Imm Gran Abs Auto 0.01 0.00 - 0.03 X10*3/uL [facility] Lymphocytes Absolute Auto 2.0 1.2 - 4.9 X10*3/uL [facility] Monocytes Absolute Auto 0.4 0.1 - 1.2 X10*3/uL [facility] Eosinophils Absolute Auto 0.2 0.0 - 0.4 X10*3/uL [facility] Basophils Absolute Auto 0.0 0.0 - 0.2 X10*3/uL [facility] NRBC Abs Auto 0.000 0.0 - 0.012 X10*3/uL [facility] 03/09/2022 5:39 PM EST 03/09/2022 5:43 PM EST [facility] External Provider LAB BLO OD ORDERABLES Final Result Performing Organization Address [facility] de Phone Number [facility] [address] [place] [phone] * Prothrombin Time-INR (03/09/2022 5:39 PM EST) Prothrombin Time 10.9 10.0 - 13.1 SEC [facility] INTERNATIONAL NORM RATIO 1.0 0.9 - 1.1 [facility] Comment:INTERNATIONAL NORMAL IZED RATIO (INR) [...] 5:39 PM EST 03/09/2022 5:43 PM EST [facility] External Provider LAB BLO OD ORDERABLES Final Result Performing Organization Address [facility] de Phone Number [facility] [address] [place] [phone] * GLUCOSE, WHOLE BLOOD (03/01/2022 12:41 AM EST) Glucose, Whole Blood 79 60 - 115 mg/dL [facility] Comment:METER #: [id number] 1 03/01/2022 12:4 1 AM EST 03/01/2022 12:46 AM EST [facility] External Provider LAB BLO OD ORDERABLES Final Result Performing Organization Address [facility]/ZIP Co de Phone Number [facility] [address] [place] [address] [phone] * (ABNORMAL) GLUCOSE, WHOLE BLOOD (02/28/2022 10:39 PM EST) Glucose, Whole Blood 273(H) 60 - 115 mg/dL [facility] Comment:METER #: [id number] 1 02/28/2022 10:3 9 PM EST 02/28/2022 10:45 PM EST [facility] External Provider LAB BLO OD ORDERABLES Final Result [facility] [address] [place] [address] [phone] * (ABNORMAL) Comprehensive Metabolic Panel (02/28/2022 9:42 PM EST) Sodium 138 135 - 145 mmol/L [facility] Potassium 4.3 3.3 - 5.1 mmol/L [facility] Comment:Slight Hemolysis Chloride 106 96 - 108 mmol/L [facility] Carbon Dioxide 24 22 - 29 mmol/L [facility] Anion Gap 12 12 - 20 [facility] Urea Nitrogen (BUN) 14 9 - 16 mg/dL [facility] Creatinine, Serum 0.87 0.5 - 1.4 mg/dL [facility] Creatinine Clr Calc Pharmacy 57.2 [facility] Comment:Provided height and weight: 152.4 cm,63.503 kg.eGFR (calculated from the MDRD study equation) and eCrCl(calculated from the Cockcroft-Gault equation) are based ondifferent parameters and may not yield comparable results.If eCrCl result is absurd, please check patient'sheight/weight. Estimated Glomerular Filt Rate >60 [facility] Comment:NOTE: For -Am erican individuals, multiply the result by 1.210.Chronic Kidney Disease: Estimated GFR < 60 mL/min/1.30u9Uxefgw Kidney Disease: Estimated GFR < 15 mL/min/1.73m2 Glucose 378(HH) 60 - 115 mg/dL [facility] Comment:Critical value for t est(s): GLUR Results called to and readback by: EULA Person calling: HASTINS Date: 02/28/22Time: 2220 Calcium 9.3 8.4 - 10.2 mg/dL [facility] Bilirubin, Total 0.3 0.0 - 1.0 mg/dL [facility] Aspartate Amino Transferase 12 5 - 31 U/L [facility] Comment:Slight Hemolysis Alanine Aminotransferase 7 0 - 31 U/L [facility] Total Protein 6.7 6.5 - 8.0 g/dL [facility] Albumin Level 3.9 3.5 - 5.0 g/dL [facility] Alkaline Phosphatase 83 39 - 117 U/L [facility] 02/28/2022 9:42 PM EST 02/28/2022 9:48 PM EST us [facility] External Provider LAB BLO OD ORDERABLES Final Result [facility] [address] [place] [address] [phone] * HIGH SENSITIVITY TROPONIN I (02/28/2022 9:42 PM EST) TROPONIN I HIGH SENSITIVITY 7.1 <3.5 - 17.0 ng/L [facility] Comment:The Ibrahim high sens itivity Troponin-I results should beused in conjunction with other diagnostic information suchas ECG, clinical observations and information, and patientsymptoms to aid in the diagnosis of [place]. 02/28/2022 9:42 PM EST 02/28/2022 9:48 PM EST [facility] External Provider LAB BLO OD ORDERABLES Final Result Performing Organization Address [facility]/State/[facility] Co de Phone Number [facility] [address] [place] [phone] * (ABNORMAL) CBC (02/28/2022 9:42 PM EST) White Blood Count 7.0 4.8 - 10.8 X10*3/uL [facility] Red Blood Count 4.22 4.20 - 5.50 X10*6/uL [facility] Hemoglobin 12.1 12.0 - 16.0 g/dl [facility] Hematocrit 36.4(L) 37.0 - 47.0 % [facility] Mean Corpuscular Volume 86.3 80.0 - 98.0 fL [facility] Mean Corpuscular Hemoglobin 28.7 27.0 - 33.0 pg [facility] Mean Corpuscular HGB Conc 33.2 31.0 - 35.0 g/dl [facility] Red Cell Distribution Width 13.3 11.0 - 16.0 % [facility] Platelet Count 311 160 - 400 X10*3/uL [facility] Mean Platelet Volume 9.7 9.4 - 12.3 fL [facility] NRBC Pct Auto 0.0 0.0 - 0.2 /100WBC [facility] NRBC Abs Auto 0.000 0.0 - 0.012 X10*3/uL [facility] 02/28/2022 9:42 PM EST 02/28/2022 9:48 PM EST [facility] External Provider LAB BLO OD ORDERABLES Final Result Performing Organization Address City/[facility]/ZIP Co de Phone Number [facility] [address] [place] [address] [phone] * (ABNORMAL) GLUCOSE, WHOLE BLOOD (02/28/2022 9:38 PM EST) Glucose, Whole Blood 379(HH) 60 - 115 mg/dL [facility] Comment:METER #: [id number] 1 02/28/2022 9:38 PM EST 02/28/2022 9:48 PM EST [facility] External Provider LAB BLO OD ORDERABLES Final Result Performing Organization Address [facility] de Phone Number [facility] [address] [place] [address] [phone] * (ABNORMAL) Urinalysis, Complete, with Reflex to Culture (02/22/2022 3:20 PM EST) Color Urine Yellow [facility] Appearance Urine Cloudy [facility] PH 6.5 5.0 - 9.0 [facility] Glucose Urine UA >=1000(A) Negative mg/dL [facility] Urine Blood Negative Negative [facility] Specific [place] - Urine 1.020 1.005 - 1.025 [facility] Urine Protein 100 (2+)(A) Neg-Trace mg/dL [facility] Urine Ketones Negative Negative mg/dL [facility] Nitrite Urine Negative Negative [facility] Leukocyte Esterase Urine Small (1+)(A) Negative [facility] RBC Urine 3-5(A) 0 - 2 /HPF [facility] Urine WBC 0-5 0 - 5 /HPF [facility] Urine Squamous Epithelial Cell 0-2 0 - 2 /HPF [facility] Urine Bacteria None Seen None Seen [facility] Hyaline Casts, Urine 3-5 0 - 2 /LPF [facility] 02/22/2022 3:20 PM EST 02/22/2022 3:27 PM EST Narrative [facility] - 02/22/2022 4:14 PM EST [id number], Clean Catch [facility] External Provider LAB URI NE ORDERABLES Final Result Performing Organization Address [facility]/ZIP Co de Phone Number [facility] [address] [place] [address] [phone] * SARS-CoV-2 RNA, Influenza A/B, and RSV RNA, Ql NAAT (02/22/2022 3:14 PM EST) Pathologist [facility] Influenza A PCR NEGATIVE Negative [facility] Influenza B PCR NEGATIVE Negative [facility] Resp Syncy Virus RNA Qual PCR NEGATIVE Negative [facility] SARS COV2 PCR NEGATIVE Negative [facility] SARS/Flu/RSV Note See Note [facility] Comment:All test results mus t [...] use by authorized laboratories.Testing performed on the [employer] GeneXpert utilizingreal-time RT-PCR.All SARS CoV2 and positive influenza A/B results arereported to [facility]. 02/22/2022 3:14 PM EST 02/22/2022 3:19 PM EST [facility] Exter nal Provider LAB MICROBIOLOGY - GENERAL ORDERABLES Final Result Performing Organization Address [facility]/ZIP Co de Phone Number [facility] [address] [place] [phone] * HIGH SENSITIVITY TROPONIN I (02/22/2022 3:14 PM EST) Pathologist [facility] TROPONIN I HIGH SENSITIVITY 8.8 <3.5 - 17.0 ng/L [facility] Comment:The Ibrahim high sens itivity Troponin-I results should beused in conjunction with other diagnostic information suchas ECG, clinical observations and information, and patientsymptoms to aid in the diagnosis of [place]. 02/22/2022 3:14 PM EST 02/22/2022 3:19 PM EST [facility] External Provider LAB BLO OD ORDERABLES Final Result Performing Organization Address City/[facility]/ZIP Co de Phone Number [facility] [address] [place] [phone] * Magnesium (02/22/2022 3:14 PM EST) Pathologist [facility] Magnesium 1.6 1.6 - 2.6 mg/dL [facility] 02/22/2022 3:14 PM EST 02/22/2022 3:19 PM EST [facility] External Provider LAB BLO OD ORDERABLES Final Result Performing Organization Address [facility] Co de Phone Number [facility] [address] [place] [phone] * (ABNORMAL) Basic Metabolic Panel (02/22/2022 3:14 PM EST) Pathologist [facility] Sodium 136 135 - 145 mmol/L [facility] Potassium 4.4 3.3 - 5.1 mmol/L [facility] Chloride 103 96 - 108 mmol/L [facility] Carbon Dioxide 27 22 - 29 mmol/L [facility] Anion Gap 10(L) 12 - 20 [facility] Urea Nitrogen (BUN) 20(H) 9 - 16 mg/dL [facility] Creatinine, Serum 0.99 0.5 - 1.4 mg/dL [facility] Creatinine Clr Calc Pharmacy 50.6 [facility] Comment:Provided height and weight: 152.4 cm,64.5 kg.eGFR (calculated from the MDRD study equation) and eCrCl(calculated from the Cockcroft-Gault equation) are based ondifferent parameters and may not yield comparable results.If eCrCl result is absurd, please check patient'sheight/weight. Estimated Glomerular Filt Rate 57 [facility] Comment:NOTE: For -Am erican individuals, multiply the result by 1.210.Chronic Kidney Disease: Estimated GFR < 60 mL/min/1.36d9Osoqac Kidney Disease: Estimated GFR < 15 mL/min/1.73m2 Glucose 343(H) 60 - 115 mg/dL [facility] Calcium 9.3 8.4 - 10.2 mg/dL [facility] 02/22/2022 3:14 PM EST 02/22/2022 3:19 PM EST [facility] External Provider LAB BLO OD ORDERABLES Final Result Performing Organization Address [facility] de Phone Number [facility] [address] [place] [phone] * (ABNORMAL) Hepatic Function Panel (02/22/2022 3:14 PM EST) Bilirubin, Total 0.4 0.0 - 1.0 mg/dL [facility] Bilirubin, Direct <0.2 0.0 - 0.5 mg/dL [facility] Aspartate Amino Transferase 10 5 - 31 U/L [facility] Alanine Aminotransferase 6 0 - 31 U/L [facility] Total Protein 6.1(L) 6.5 - 8.0 g/dL [facility] Albumin Level 3.7 3.5 - 5.0 g/dL [facility] Alkaline Phosphatase 82 39 - 117 U/L [facility] 02/22/2022 3:14 PM EST 02/22/2022 3:19 PM EST [facility] External Provider LAB BLO OD ORDERABLES Final Result Performing Organization Address [facility] Co de Phone Number [facility] [address] [place] [phone] [phone] * (ABNORMAL) CBC auto differential (02/22/2022 3:14 PM EST) White Blood Count 5.6 4.8 - 10.8 X10*3/uL [facility] Red Blood Count 3.99(L) 4.20 - 5.50 X10*6/uL [facility] Hemoglobin 11.8(L) 12.0 - 16.0 g/dl [facility] Hematocrit 35.1(L) 37.0 - 47.0 % [facility] Mean Corpuscular Volume 88.0 80.0 - 98.0 fL [facility] Mean Corpuscular Hemoglobin 29.6 27.0 - 33.0 pg [facility] Mean Corpuscular HGB Conc 33.6 31.0 - 35.0 g/dl [facility] Red Cell Distribution Width 13.2 11.0 - 16.0 % [facility] Platelet Count 265 160 - 400 X10*3/uL [facility] Mean Platelet Volume 10.0 9.4 - 12.3 fL [facility] Neutrophils Percent Auto 49.1 45 - 73 % [facility] Imm Gran Pct Auto 0.4 0.0 - 0.4 % [facility] Lymphocytes Percent Auto 40.1(H) 20 - 40 % [facility] Monocytes Percent Auto 6.1 2 - 11 % [facility] Eosinophils Percent Auto 3.4 0 - 4 % [facility] Basophils Percent Auto 0.9 0 - 2 % [facility] NRBC Pct Auto 0.0 0.0 - 0.2 /100WBC [facility] Neutrophils Absolute Auto 2.7 2.0 - 8.3 x10*3/uL [facility] Imm Gran Abs Auto 0.02 0.00 - 0.03 X10*3/uL [facility] Lymphocytes Absolute Auto 2.2 1.2 - 4.9 X10*3/uL [facility] Monocytes Absolute Auto 0.3 0.1 - 1.2 X10*3/uL [facility] Eosinophils Absolute Auto 0.2 0.0 - 0.4 X10*3/uL [facility] Basophils Absolute Auto 0.1 0.0 - 0.2 X10*3/uL [facility] NRBC Abs Auto 0.000 0.0 - 0.012 X10*3/uL [facility] 02/22/2022 3:14 PM EST 02/22/2022 3:19 PM EST [facility] External Provider LAB BLO OD ORDERABLES Final Result Performing Organization Address [facility]/ZIP Co de Phone Number [facility] [address] [place] [phone] * Culture, Urine, Routine (02/22/2022 12:00 AM EST) 02/22/2022 02/22/2022 5:2 3 PM EST Comment:UACC Narrative [facility] - 02/24/2022 11:31 AM EST Urine Culture Report Result Urine Culture 10,000 to 50,000 cfu/ml Urine Culture Mixed bacterial benton characteristic of Urine Culture urogenital contamination. Specimen Source: Urine clean catch [facility] Exter nal Provider LAB MICROBIOLOGY - GENERAL ORDERABLES Final Result Performing Organization Address [facility] Co de Phone Number [facility] [address] [place] [phone] documented in this encounter Visit Diagnoses Not on filedocumented in this encounter Care Teams Driver'S License Reviewing Officer Relationship Specialty Start Date End Date Radha Jamison DO [address] [place] [address] PCP - General Family Medicine 01/26/12 Abdias Murillo, Camron [address] [place] [address] Pharmacist Internal Medicine 03/21/22 08/30/23 Nelia Sullivan PharmD [address] [place] [address] Pharmacist Internal Medicine 08/31/23 Laurel Monterroso Pharmacist HospitalKennel Keeper 10/27/22 Saige Aguilar 09/26/23 documented as of this encounter
--- OUTSIDE RECORDS SUMMARY | 2024-05-29 11:20 | XMS_ITS | Encounter Summary ---
Author Organization [employer] [facility] Address [address] [place] [address] Care Team Providers Care Centerless Grinder Set Up Operator Name Role Phone Radha Jamison DO Primary Care Provider [phone] Abdias Murillo PharmD Unavailable Unavail able Nelia Sullivan PharmD Unavailable Reason for Visit * Reason Comments Med Refill Encounter Details Date Type Department Care Team (Late Contact Info) Description 07/20/2022 Refill [facility] [address] [place] [address] Radha Jamison DO [address] [place] [address] Hypertension, unspecified type Social History Tobacco Use [...] Description 06/14/2024 10:00 AM EDT Medication Management [facility] [address] [place] [address] Nelia Sullivan PharmD [address] [place] [address] 06/25/2024 9:45 AM EDT Office Visit [facility] [address] [place] [place] [address] Radha Jamison DO [address] [place] [address] documented as of this encounter Goals Goal [...] documented as of this encounter Care Teams Centerless Grinder Set Up Operator Relationship Specialty Start Date End [place] [address] PCP - General Family Medicine 01/26/12 Abdias Murillo, PharmD [facility] [place] [place] [address] Pharmacist Internal Medicine 03/21/22 08/30/23 Nelia Sullivan PharmD [address] [place] [phone] Pharmacist Internal Medicine 08/31/23 Laurel Monterroso Time Study StatisticianRental Agent 10/27/22 Saige Aguilar 09/26/23 documented as of this encounter
--- OUTSIDE RECORDS SUMMARY | 2024-05-29 11:20 | XMS_ITS | Encounter Summary ---
Author Organization [employer] [facility] Address [address] [facility] 7t [place] [address] Care Team Providers Care Scouring Machine Tender Name Role Phone ShaheenRadha Primary Care Provider [phone]- [phone] Abdias Murillo PharmD Unavailable Unavail able Nelia Sullivan PharmD Unavailable [phone] Reason for Visit * Reason Onset Date Comments Med Refill Appointment 05/15/2022 Re: her appt for today as [id number] @ 10:15 am. & No active phone # at this time. Encounter Details Date Type Department Care Team (Late st Contact Info) Description 05/15/2022 Refill [facility] [address] [place] [address] Abdias Murillo, PharmD Type 2 diabetes mellitus with other specified complication, with long-term current use of insulin ([facility]) Social History Tobacco Use Types Packs/Day Years [...] pt regarding her appt for today as [id number] @ 10:15 am. And her phone # is not active at this time. documented in this encounter Plan of Treatment Upcoming Encounters Date Type Department Care Team (Late st Contact Info) Description 06/14/2024 10:00 AM EDT Medication Management [facility] [address] [place] [phone] Nelia Sullivan PharmD [address] [place] [address] 06/25/2024 9:45 AM EDT Office Visit [facility] [address] [place] [address] Radha Jamison DO [address] [place] [address] documented as of this encounter Goals Goal Patient Goal Type Associated Problems Recent Progress Patient-Stated? Author Hemoglobin A1c < 7 Result Component 10.3( 12:32 PM EDT) No Abdias Murillo, PharmD documented as of this encounter Visit Diagnoses Diagnosis Type 2 diabetes mellitus with other specified complication, with long-term current use of insulin ([facility]) documented in this encounter Additional Health Concerns Assessment Noted Time PHQ-9 Depression Total Score: 14 023 12:00 PM EST documented as of this encounter Care Teams Scouring Machine Tender Relationship Specialty Start Date End Date Radha Jamison DO [address] [place] [address] PCP - General Family Medicine 01/26/12 Abdias Murillo, PharmD [address] [place] [address] Pharmacist Internal Medicine 03/21/22 08/30/23 Nelia Sullivan, KeithD [address] [place] [address] Pharmacist Internal Medicine 08/31/23 Laurel Monterroso Oil And Gas SuperintendentMen'S Custom Hair Piece Consultant 10/27/22 Saige Aguilar 09/26/23 documented as of this encounter
--- OUTSIDE RECORDS SUMMARY | 2024-05-29 11:20 | XMS_ITS | Encounter Summary ---
Author Organization [employer] Address 75 [facility] 7t [place] [address] Care Team Providers Care Supplemental Nurse Name Role Phone Radha Jamison DO Primary Care Provider [phone]- [phone] Abdias Murillo PharmD Unavailable Unavail able Nelia Sullivan PharmD Unavailable [phone] Reason for Visit * Reason Comments Med Refill Encounter Details Date Type Department Care Team (Late st Contact Info) Description 02/15/[address] [facility] [address] [place], [place] [phone] Radha Jamison DO [address] [place] [address] Chronic bilateral low back pain, unspecified whether [...] 06/14/2024 10:00 AM EDT Medication Management [facility] [address] [place] [address] Nelia Sullivan PharmD [address] [place] [address] 06/25/2024 9:45 AM EDT Office Visit [facility] [address] [place] [address] Radha Jamison DO [address] [place] [address] documented as of this encounter Goals Goal [...] documented as of this encounter Care Teams Supplemental Nurse Relationship Specialty Start Date End Date Radha Jamison DO [address] [place] [address] PCP - General Family Medicine 01/26/12 Abdias Murillo, KeithD [address] [place] [address] Pharmacist Internal Medicine 03/21/22 08/30/23 Nelia Sullivan, KeithD [address] [facility] [place] [address] Pharmacist Internal Medicine 08/31/23 Laurel Monterroso Custom TailorBandage Maker 10/27/22 Saige Aguilar 09/26/23 documented as of this encounter
--- OUTSIDE RECORDS SUMMARY | 2024-05-29 11:20 | XMS_ITS | Encounter Summary ---
Author Organization [employer] Address [address] [facility] 7t [place] [address] Care Team Providers Care Staker Surveying Name Role Phone ShaheenRadha Primary Care Provider [phone]- [phone] Nelia Sullivan PharmD Unavailable [phone] Encounter Details Date Type Department Care Team (Latest Contact Info) Description 05/24/2024 Travel Social History Tobacco Use Types Packs/Day [...] Description 06/14/2024 10:00 AM EDT Medication Management [facility] [address] [place] [address] Nelia Sullivan, PharmD [address] [place] [address] 06/25/2024 9:45 AM EDT Office Visit [facility] [address] [place] [address] Radha Jamison DO [address] [place] [address] documented as of this encounter Goals Goal [...] documented as of this encounter Care Teams Staker Surveying Relationship Specialty Start Date End Date Radha Jamison DO [address] [place] [address] PCP - General Family Medicine 01/26/12 Nelia Sullivan, Camron [address] [place] [address] Pharmacist Internal Medicine 08/31/23 Laurel Monterroso Header DockInternal Controls Analyst 10/27/22 Saige Aguilar 09/26/23 documented as of this encounter
--- OUTSIDE RECORDS SUMMARY | 2024-05-29 11:20 | XMS_ITS | Encounter Summary ---
Author Organization [employer] Address 75 [facility] 7t [place] [address] Care Team Providers Care Circuit Breaker Mechanic Name Role Phone Radha Jamison DO Primary Care Provider [phone]- [phone] Nelia Sullivan PharmD Unavailable [phone] Encounter Details Date Type Department Care Team ([facility] st Contact Info) Description 01/30/2024 Telephone [facility] [address] [place], [place] [phone] Radha Jamison DO 230 [facility] [place] [address] Social History Tobacco Use Types Packs/Day Years [...] Description 06/14/2024 10:00 AM EDT Medication Management [facility] MEDICINE [address] [place] [address] Nelia Sullivan, PharmD [address] [place] [address] 06/25/2024 9:45 AM EDT Office Visit [facility] [address] [place] [address] Radha Jamison DO [address] [place] [address] documented as of this encounter Goals Goal Patient Goal Type Associated Problems Recent Progress Patient-Stated? Author Record your blood pressure once per day Blood Pressure No Nelia Sullivan, PharmD Blood Pressure < 140/90 Blood Pressure 160/70(2024 12:28 PM EDT) No Nelia Sullivan, PharmD Smoking cessation General No PuiaFeliceNelia, PharmD [...] as of this encounter Care Teams Circuit Breaker Mechanic Relationship Specialty Start Date End Date Radha Jamison DO [address] [place] [address] PCP - General Family Medicine 01/26/12 Nelia Sullivan PharmD [address] [place] [address] Pharmacist Internal Medicine 08/31/23 Laurel Monterroso Hyster DriverNurses Educator 10/27/22 Saige Aguilar 09/26/23 documented as of this encounter
--- OUTSIDE RECORDS SUMMARY | 2024-05-29 11:20 | XMS_ITS | Encounter Summary ---
Author Organization [employer] Address [address] [facility] 7t [place] [address] Care Team Providers Care Electron Beam Welding Machine Operator Name Role Phone Radha Jamison DO Primary Care Provider [phone] Abdias Murillo PharmD Unavailable Unavail able Nelia Sullivan PharmD Unavailable [phone] Reason for Visit * Reason Comments Med Refill Encounter Details Date Type Department Care Team (Late st Contact Info) Description 12/20/2022 Refill [facility] [address] [place] [address] Radha Jamison DO [address] [place] [address] Chronic bilateral low back pain, unspecified whether [...] 10:00 AM EDT Medication Management [facility] MED[facility]INE [address] [place] [address] Nelia Sullivan PharmD [address] [place] [address] 06/25/2024 9:45 AM EDT Office Visit [facility] [address] [place] [address] Radha Jamison DO [address] [place] [address] documented as of this encounter Goals Goal [...] documented as of this encounter Care Teams Electron Beam Welding Machine Operator Relationship Specialty Start Date End Date Radha Jamison DO [address] [place] [address] PCP - General Family Medicine 01/26/12 Abdias Murillo, KeithD [address] [place] [address] Pharmacist Internal Medicine 03/21/22 08/30/23 Nelia Sullivan, KeithD [address] [facility] [place] [address] Pharmacist Internal Medicine 08/31/23 Laurel Monterroso Director Of Consumer MarketingDiesel Machinist 10/27/22 Saige Aguilar 09/26/23 documented as of this encounter
--- OUTSIDE RECORDS SUMMARY | 2024-05-29 11:20 | XMS_ITS | Encounter Summary ---
Author Organization [employer] Address [address] [facility] 7t [place] [address] Care Team Providers Care Knitted Goods Shaper Name Role Phone Radha Jamison DO Primary Care Provider [phone]- [phone] Abdias Murillo PharmD Unavailable Unavail able Nelia Sullivan PharmD Unavailable [phone] Reason for Visit * Reason Comments Med Refill Encounter Details Date Type Department Care Team (Late st Contact Info) Description 03/14/2023 Refill [facility]INE [address] [place], [place] [phone] Radha Jamison DO [address] [place] [address] Chronic bilateral low back pain, unspecified whether [...] 06/14/2024 10:00 AM EDT Medication Management [facility] [address] [place] [address] Nelia Sullivan PharmD [address] [place] [address] 06/25/2024 9:45 AM EDT Office Visit [facility] [address] [place] [address] Radha Jamison DO [address] [place] [address] documented as of this encounter Goals Goal [...] documented as of this encounter Care Teams Knitted Goods Shaper Relationship Specialty Start Date End Date Radha Jamison DO [address] [place] [address] PCP - General Family Medicine 01/26/12 Abdias Murillo, KeithD [address] [place] [address] Pharmacist Internal Medicine 03/21/22 08/30/23 Nelia Sullivan, KeithD 230 [facility] [place] [address] Pharmacist Internal Medicine 08/31/23 Laurel Monterroso Vinyl DipperCourt Reporter 10/27/22 Saige Aguilar 09/26/23 documented as of this encounter
--- OUTSIDE RECORDS SUMMARY | 2024-05-29 11:20 | XMS_ITS | Encounter Summary ---
Author Organization [employer] [facility] Address 75 [facility] 7t [place] [address] Care Team Providers Care Croze Cutter Name Role Phone Radha Jamison DO Primary Care Provider +1- [phone] DelAbdias hardy PharmD Unavailable Unavail able Nelia Sullivan PharmD Unavailable Reason for Visit * Reason Comments Med Refill Encounter Details Date Type Department Care Team (Late st Contact Info) Description 06/10/2022 Refill [facility] [address] [place] [address] Radha Jamison DO [address] [place] [address] Chronic bilateral low back pain, unspecified whether [...] Description 06/14/2024 10:00 AM EDT Medication Management [facility] [address] [facility] [place] [address] Nelia Sullivan PharmD [address] [place] [address] 06/25/2024 9:45 AM EDT Office Visit [facility] [address] [facility] [place] [address] Radha Jamison DO [address] [facility] [place] [address] documented as of this encounter Goals Goal [...] documented as of this encounter Care Teams Croze Cutter Relationship Specialty Start Date End Date Radha Jamison DO [facility] [place] [address] PCP - General Family Medicine 01/26/12 Abdias Murillo, [place] [address] Pharmacist Internal Medicine 03/21/22 08/30/23 [place] [address] Pharmacist Internal Medicine 08/31/23 Laurel Monterroso Hand Tool FilerPulp House Supervisor 10/27/22 Saige Aguilar 09/26/23 documented as of this encounter
--- OUTSIDE RECORDS SUMMARY | 2024-05-29 11:20 | XMS_ITS | Encounter Summary ---
Author Organization [employer] Address [address] [facility] 7t [place] [address] Care Team Providers Care Tire Shop Mechanic Name Role Phone Radha Jamison DO Primary Care Provider Nelia Sullivan PharmD Unavailable [phone] Encounter Details Date Type Department Care Team (Latest Contact Info) Description 05/24/2024 12:00 PM EDT Office Visit [facility] [address] [place] [address] Radha Jamison DO [address] [place] [address] Influenza A (Primary Dx); Mood disorder (CMS/HCC); Chronic bilateral low back pain, unspecified whether sciatica present; 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, with long-term current use of insulin, macular edema presence unspecified, unspecified laterality (CMS/HCC) Social History Tobacco Use Types Packs/Day [...] 20 05/24/2024 12:28 PM EDT Oxygen Saturation - - Inhaled Oxygen Concentration - - Weight 64.4 kg (142 lb) 05/24/2024 12:28 PM EDT Height 152.4 cm (5') 05/24/2024 12:28 PM EDT Body Mass Index 27.73 05/24/2024 12:28 PM EDT documented in this encounter Progress Notes * Radha Jamison, - 05/24/2024 12:00 PM EDT SUBJECTIVE: Rocío Schmid is a 63 y.o. year old adult who presents for sick visit . She says she feels thesame . HPI She called at the end of last mos c/o increased anxiety and requested sooner appt. She says that she feels anxious sometimes. She says that she is taking her medication every day. She doesn't have a therapist at this time and doesn't want one. She was seen in [facility] ED on 05/18/14 with URI sx and dx'd with flu. Her CXR was negative. She was giventamiflu and tessalon perles. She only took 3 doses of the tamiflu and stopped as it gave her blurred vision and dry mouth. She still has a lot of cough, doesn't feel that the meds are helping. She tried robitussin which helps more and uses at night to help her sleep. Her main concern is her pain. She c/o pain in her whole body. She says that everything hurts and wants to know why she isn't getting meds for her pain anymore. She was notified by VALUATION MANAGER RN on 03/07/24 that her VALUATION MANAGER contract was terminated due to multiple inaccurate pill counts, negative utox and noncomp liance with narcotic agreement and was started on oxycodone taper. She tells me that she was taking her medication as she was supposed to and doesn't understand why the pills were stopped. She is adamant that she did not misuse the medication and took the medicationwhen she needed it for pain. She says that she didn't understand when she spoke with the VALUATION MANAGER RN that her medication was going ko stopped. She thought that it was going to be lowered because she had too many pills. She says that her pain is a lot and that nobody understands her pain. She says that she frequently has to stop whatever she's doing because of her pain. She says that she has issues with transportation which makes it difficult to come to her appts and she has to cancel. Her dtr was bringing her but she moved to [place] and no longer has a car. Her son brought her to her visit today. Review of Systems Constitutional: Negative for chills and fever. HENT: Negative for congestion, postnasal drip, rhinorrhea and sore throat. Eyes: Negative for visual disturbance. Respiratory: Positive for cough. Negative for shortness of breath and wheezing. Cardiovascular: Negative for chest pain and leg swelling. Gastrointestinal: Negative for abdominal pain, diarrhea and vomiting. Musculoskeletal: Positive for arthralgias and back pain. Skin: Negative for rash and wound. Neurological: Negative for headaches. Patient Active Problem List Diagnosis Anemia Aortic stenosis Coronary arteriosclerosis Resistant hypertension Female stress incontinence Hyperlipidemia Chronic migraine Mild persistent asthma Mood disorder ([facility]/HCC) Obstructive sleep apnea Peripheral arterial disease ([facility]) Presbyopia Status post femoral-popliteal bypass surgery Tobacco dependence Type 2 diabetes mellitus (CMS/[facility]) Multiple pulmonary nodules Spinal stenosis, lumbar Chronic allergic rhinitis Chronic gastroesophageal reflux disease Diabetic retinopathy ([facility]) Chronic constipation Carotid artery stenosis Healthcare maintenance Nonadherence to medication Proteinuria Vitamin D deficiency Fibromuscular dysplasia of renal artery (CMS/HCC) Left lower quadrant abdominal pain Allergies Allergen Reactions Latex Rash Naproxen Hives and Palpitations Furosemide Rash OBJECTIVE Vitals: 05/24/24 1228 BP: (!) 160/70 BP Location: Left arm Patient Position: Sitting BP Cuff Size: Adult Pulse: 82 Resp: 20 Temp: 98.3 ??F (36.8 ??C) TempSrc: Oral Weight: 142 lb (64.4 kg) Height: 5' (1.524 m) Physical Exam Constitutional: General: She is not in acute distress. Appearance: Normal appearance. Cardiovascular: Rate and Rhythm: Normal rate and regular rhythm. Heart sounds: Normal heart sounds. No murmur heard. Pulmonary: Effort: Pulmonary effort is normal. Breath sounds: Normal breath sounds. No wheezing or rhonchi. Neurological: General: No focal deficit present. Mental Status: She is alert and oriented to person, place, and time. Cranial Nerves: No cranial nerve deficit. Motor: No weakness. Gait: Gait normal. Psychiatric: Mood and Affect: Mood normal. Affect is flat. Speech: Speech normal. Behavior: Behavior normal. Thought Content: Thought content normal. Office Visit on 05/24/2024 Component Date Value Ref Range Status Glucose Blood, POC 05/24/2024 412 (A) 60 - 200 mg/dL Final QC Media Lot # 05/24/2024 [id number] Final Lot# Expiration Date 05/24/2024 [id number] Final Hemoglobin A1C 05/24/2024 10.3 (A) 4.0 - 6.0 % Final QC Media Lot # 05/24/2024 [id number] Final Lot# Expiration Date 05/24/2024 [id number] Final ASSESSMENT/PLAN Diagnoses and all orders for this visit: Influenza A S/p ED visit with continued cough, unable to tolerate tamiflu -provided reassurance -cont supportive care measures -increase robitussin to daytime use, alternate with tessalon perles prn -advised rtc if sx don't resolve Mood disorder ([facility]) With anxiety and depression -she denies any current SI/HI -she has the number for crisis and contracts for safety -cont lexapro daily -cont remeron and trazodone nightly -cont hydroxyzine prn acute anxiety -she declines referral to therapist Chronic bilateral low back pain, unspecified whether sciatica present S/p oxycodone taper -MRI L-spine with grade 1 anterolisthesis at L-5 2/2 advanced facet arthropathy, moderate central canal stenosis, mild foraminal narrowing L3-L4 and L5-S1, moderate foraminal stenosis with L4 nerve root encroachment APR 2018 -L-spine xrays with mild multilevel lumbar spondylosis and grade 1 anterolisthesis of L4 on L5 July2023 -EMG/NCS with 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 Apr 2018 -cont gabapentin 800mg TID -cont amitriptyline nightly -encouraged standing doses of tylenol -cont baclofen to help with mm spasm -encouraged lidocaine patches and diclofenac as needed -advised pt will consider restarting opiate pain mgmt after period of time off meds -f/u with PM prn -f/u with NS once A1c improved -advised rtc if sx worsen or go to ED if any weakness or loss of sensation, she agrees with plans 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, with long-term current use of insulin, macular edema presence unspecified, unspecified laterality ([facility]/HCC) - POCT Glucose - POCT HGB A1C F/U with me next mos as scheduled or sooner prn Current Outpatient Medications: acetaminophen (Tylenol 8 Hour) 650 MG ER tablet, Take 1 tablet (650 mg) by mouth every 8 (eight) hours., Disp: 60 tablet, Rfl: 2 Alcohol Swabs (Alcohol Prep) 70 % pads, USE 1 THREE TIMES DAILY AND NEEDED, Disp: 100 each, Rfl:11 amitriptyline (Elavil) 50 MG tablet, TAKE 1 TABLET BY MOUTH AT BEDTIME, Disp: 30 tablet, Rfl: 3 Asmanex HFA 100 MCG/ACT aerosol, INHALE 2 PUFFS BY MOUTH TWICE DAILY RINSE MOUTH AFTER USING., Disp: 13 g, Rfl: 11 aspirin (Aspirin Low Dose) 81 MG EC tablet, TAKE 1 TABLET BY MOUTH EVERY EVENING, Disp: 90 tablet, Rfl: 0 atorvastatin (Lipitor) 80 MG tablet, Take 1 tablet (80 mg) by mouth at bedtime., Disp: 90 tablet, Rfl: 1 Blood Pressure Monitoring (Omron 3 Series BP Monitor) device, Use as directed to check BP once daily, Disp: 1 each, Rfl: 0 carvedilol (Coreg) 25 MG tablet, TAKE 1 TABLET BY MOUTH TWICE DAILY IN THE MORNING AND IN THE EVENING WITH FOOD, Disp: 180 tablet, Rfl: 1 clopidogrel (Plavix) 75 MG tablet, Take 1 tablet by mouth at bed time., Disp: , Rfl: Continuous Glucose Deaf Interpreter (FreeStyle Jenn 3 Lincoln) device, 1 each 3 times daily. Use daily as directed for CGM, Disp: 1 each, Rfl: 0 Continuous Glucose Sensor (FreeStyle Jenn 3 Plus Sensor) misc, 1 each Once per day. Apply 1 sensoras directed every 15 days for CGM, Disp: 2 each, Rfl: 11 Diclofenac Sodium 1 % gel, Apply 2 g topically if needed in the morning, at noon, in the evening, and at bedtime (pain). (Patient not taking: Reported on 04/05/2024), Disp: 150 g, Rfl: 2 docusate sodium (Colace) 100 MG capsule, TAKE 1 CAPSULE BY MOUTH TWICE DAILY IN THE MORNING AND IN THE EVENING FOR CONSTIPATION, Disp: 180 capsule, Rfl: 1 empagliflozin-metFORMIN (Synjardy) 12.5-1000 MG, Take 1 tablet by mouth with breakfast and with evening meal., Disp: 60 tablet, Rfl: 11 escitalopram (Lexapro) 20 MG tablet, TAKE 1 TABLET BY MOUTH EVERY EVENING, Disp: 30 tablet, Rfl: 5 ezetimibe (Zetia) 10 MG tablet, Take 1 tablet (10 mg) by mouth Once per day., Disp: 90 tablet, Rfl:1 ferrous sulfate (FeroSul) 325 (65 Fe) MG tablet, TAKE 1 TABLET BY MOUTH TWICE DAILY IN THE MORNING AND AT BEDTIME, Disp: 180 tablet, Rfl: 1 fluticasone (Flonase) 50 MCG/ACT nasal spray, Administer 2 sprays into each nostril Once per day. Shake gently. Before first use, prime pump. After use, clean tip and replace cap., Disp: 48 g, Rfl: 2 gabapentin (Neurontin) 600 MG tablet, Take 1 tablet (600 mg) by mouth 2 times daily. Do not start before October 05, 2023., Disp: 60 tablet, Rfl: 11 glucose blood (FreeStyle Precision [place] Test) test strip, Use to test blood sugar 3 times daily, Disp: 100 each, Rfl: 12 hydroCHLOROthiazide (HYDRODiuril) 50 MG tablet, Take 1 tablet (50 mg) by mouth Once per day., Disp:90 tablet, Rfl: 1 hydrOXYzine pamoate (Vistaril) 25 MG capsule, Take 1 capsule (25 mg) by mouth every 6 (six) hours if needed for anxiety. (Patient not taking: Reported on 03/06/2024), Disp: 60 capsule, Rfl: 2 insulin degludec (Tresiba FlexTouch) 100 UNIT/ML injection, Inject 15 Units under the skin at bedtime., Disp: 15 mL, Rfl: 2 isosorbide mononitrate ER (Imdur) 30 MG 24 hr tablet, Take 30 mg by mouth in the morning., Disp: , Rfl: lisinopril 40 MG tablet, Take 1 tablet (40 mg) by mouth in the morning., Disp: 90 tablet, Rfl: 1 loratadine (Claritin) 10 MG tablet, Take 1 tablet (10 mg) by mouth Once per day., Disp: 90 tablet, Rfl: 3 mirtazapine (Remeron) 45 MG tablet, TAKE 1 TABLET BY MOUTH AT BEDTIME, Disp: 30 tablet, Rfl: 3 Multiple Vitamin (Multivitamin) tablet, TAKE 1 TABLET BY MOUTH EVERY MORNING WITH FOOD, Disp: 90 tablet, Rfl: 0 naloxone (Narcan) 4 mg/0.1 mL nasal spray, FOR SUSPECTED OPIOID OVERDOSE. SPRAY 0.1mL IN ONE NOSTRIL. REPEAT IN ALTERNATE NOSTRIL 2-3 MINUTES IF NEEDED. SEEK MEDICAL ATTENTION IMMEDIATELY EVEN IF PATIENT RESPONDS., Disp: 2 each, Rfl: 3 NIFEdipine XL (Procardia XL) 90 MG 24 hr tablet, Take 1 tablet (90 mg) by mouth Once per day. Do not crush, chew, or split., Disp: 90 tablet, Rfl: 3 nitroglycerin (Nitrostat) 0.4 MG SL tablet, Place 1 tablet (0.4 mg) under the tongue every 5 (five)minutes if needed for chest pain., Disp: 30 tablet, Rfl: 0 omeprazole (PriLOSEC) [address] capsule, TAKE 2 CAPSULES BY MOUTH TWICE DAILY IN THE MORNING AND EVENING WITH FOOD, Disp: 360 capsule, Rfl: 3 pen needle 32G x 4 mm misc, Use 1 daily for insulin injection, Disp: 100 each, Rfl: 3 pioglitazone (Actos) 15 MG tablet, TAKE 1 TABLET BY MOUTH EVERY MORNING, Disp: 90 tablet, Rfl: 3 Semaglutide,0.25 or 0.5MG/DOS, (Ozempic, 0.25 or 0.5 MG/DOSE,) 2 MG/3ML solution pen-injector, Inject 0.5 mg under the skin 1 (one) time per week for 28 days., Disp: 3 mL, Rfl: 11 SUMAtriptan (Imitrex) 25 MG tablet, Take 1 tablet (25 mg) by mouth 1 (one) time if needed for migraine for up to 1 dose. May repeat dose once in 2 hours if no relief. Do not exceed 2 doses in 24 hours., Disp: 9 tablet, Rfl: 2 TRUEplus Lancets 33G mis, TEST BLOOD SUGAR UP TO THREE TIMES DAILY DIRECTED, Disp: 100 each, Rfl: 11 varenicline (Chantix) 1 MG tablet, Take 1 tablet (1 mg) by mouth 2 times daily. Take with full glass of water., Disp: 60 tablet, Rfl: 5 documented in this encounter Plan of Treatment Upcoming Encounters Date Type Department Care Team (Late st Contact Info) Description 06/14/2024 10:00 AM EDT Medication Management [facility] MEDICINE [address] [place] [address] Nelia Sullivan, PharmD [address] [place] [address] 06/25/2024 9:45 AM EDT Office Visit [facility] [address] [place] [address] Shaheen RadhaDO [address] [place], [place] [phone] documented as of this encounter Goals Goal Patient Goal Type Associated Problems Recent Progress Patient-Stated? Author Record your blood pressure once per day Blood Pressure No PuiaYazminsa, PharmD Blood Pressure < 140/90 Blood Pressure 160/70(2024 12:28 PM EDT) No Nelia Sullivan, PharmD Smoking cessation General No PuiaFeliceNelia, PharmD Patient will adhere to medication regimen General No PuiaFeliceNelia, PharmD Hemoglobin A1c < 7 Result Component [...] macular edema presence unspecified, unspecified laterality (CMS/HCC) documented in this encounter Results * (ABNORMAL) POCT HGB A1C (05/24/2024 12:32 PM EDT) Hemoglobin A1C 10.3(A) 4.0 - 6.0 % QC Media Lot # [id number] Lot# Expiration Date ,597,081 Blood 05/24/2024 12:3 2 PM EDT Radha Shaheen DO POINT OF CARE TEST ENTER/BHARGAVI T ORDERABLES Final Result * (ABNORMAL) POCT Glucose (05/24/2024 12:32 PM EDT) Glucose Blood, POC 412(A) 60 - 200 mg/dL QC Media Lot # [id number] Lot# Expiration Date ,652,237 Blood Capillary blood specimen / Unknown 05/24/2024 12:32 PM EDT Result [facility] Radha Shaheen LEMUS POINT OF CARE TEST ENTER/BHARGAVI T ORDERABLES Final Result documented in this encounter Visit Diagnoses Diagnosis Influenza A- Primary Influenza with other respiratory manifestations Mood disorder (CMS/HCC) Unspecified episodic mood disorder Chronic bilateral low back pain, unspecified whether sciatica present 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, with long-term current use of insulin, macular edema presence unspecified, unspecified laterality (CMS/HCC) documented in this encounter Additional Health Concerns Assessment Noted Time PHQ-9 Depression Total Score: 10 12/20/ 024 10:24 AM EST documented as of this encounter Care Teams Tire Shop Mechanic Relationship Specialty Start Date End Date Radha Jamison DO [address] [place] [address] PCP - General Family Medicine 01/26/12 Nelia Sullivan PharmD [address] [place] [address] Pharmacist Internal Medicine 08/31/23 Laurel Monterroso Rn Pain ManagementMail Examiner 10/27/22 Saige Aguilar 09/26/23 documented as of this encounter
--- OUTSIDE RECORDS SUMMARY | 2024-05-29 11:20 | XMS_ITS | Encounter Summary ---
Author Organization [employer] Address [address] [facility] 7t [place] [address] Care Team Providers Care Programmable Logic Controller Assembler Name Role Phone Radha Jamison DO Primary Care Provider [phone] Nelia Sullivan PharmD Unavailable [phone] Reason for Visit * Reason Comments Med Refill Encounter Details Date Type Department Care Team ([facility] st Contact Info) Description 10/30/2023 Refill [facility] MEDICINE [address] [place], [place] [phone] Radha Jamison DO [address] [place] [address] Chronic bilateral low back pain, unspecified whether [...] Description 06/14/2024 10:00 AM EDT Medication Management [facility] MED[facility]INE [address] [place] [phone] AnaiiaNelia, PharmD [address] [place] [address] 06/25/2024 9:45 AM EDT Office Visit [facility] MED[facility] [address] [place] [address] Radha Jamison DO [address] [place] [address] documented as of this encounter Goals Goal [...] documented as of this encounter Care Teams Programmable Logic Controller Assembler Relationship Specialty Start Date End Date Radha Jamison DO [address] [place] [address] PCP - General Family Medicine 01/26/12 Nelia Sullivan PharmD [address] [place] [address] Pharmacist Internal Medicine 08/31/23 Laurel Monterroso Detail TechnicianMouse Breeder 10/27/22 Saige Aguilar 09/26/23 documented as of this encounter
--- OUTSIDE RECORDS SUMMARY | 2024-05-29 11:20 | XMS_ITS | Encounter Summary ---
Author Organization [employer] Address 75 [facility] 7t [place] [address] Care Team Providers Care Director Corporate Sales Name Role Phone Radha Jamison DO Primary Care Provider [phone] Nelia Sullivan PharmD Unavailable [phone] Encounter Details Date Type Department Care Team ([facility] st Contact Info) Description 05/24/2024 Telephone [facility] MEDICINE [address] [place], [place] [phone] Radha Jamison DO [address] [place], [place] [phone] Social History Tobacco Use Types Packs/Day Years [...] Telephone Encounter - Radha Jamison DO - 05/24/2024 2:16 PM EDT Please initiate PT-1 services for [facility], [facility] cardiology, [facility] nephrology, [facility] vascular and [facility] cardiology. Thank you. documented in this encounter Plan of Treatment Upcoming Encounters Date Type Department Care Team (Late st Contact Info) Description 06/14/2024 10:00 AM EDT Medication Management [facility] [address] [place] [phone] Nelia Sullivan, PharmD [address] [place] [address] 06/25/2024 9:45 AM EDT Office Visit [facility] MED[facility] [address] [place] [address] Radha Jamison DO [address] [place] [address] documented as of this encounter Goals Goal Patient Goal Type Associated Problems Recent Progress Patient-Stated? Author Record your blood pressure once per day Blood Pressure No AnaiiaNelia, PharmD Blood Pressure < 140/90 Blood Pressure 160/70(2024 12:28 PM EDT) No AnaiiaFeliceNelia, PharmD Smoking cessation General No [...] as of this encounter Care Teams Director Corporate Sales Relationship Specialty Start Date End Date Radha Jamison DO [address] [place] [address] PCP - General Family Medicine 01/26/12 Nelia Sullivan, PharmD [address] [place] [address] Pharmacist Internal Medicine 08/31/23 Laurel Monterroso Duct InstallerMicrofilm Processor 10/27/22 Saige Aguilar 09/26/23 documented as of this encounter
--- OUTSIDE RECORDS SUMMARY | 2024-05-29 11:20 | XMS_ITS | Encounter Summary ---
Author Organization [employer] Address [address] [facility] 7t [place] [address] Care Team Providers Care Web Portal Developer Name Role Phone Radha Jamison DO Primary Care Provider [phone] Abdias Murillo PharmD Unavailable Unavail able Nelia Sullivan PharmD Unavailable [phone] Reason for Visit * Reason Comments Med Refill Encounter Details Date Type Department Care Team (Late st Contact Info) Description 12/22/2022 Refill [facility]INE [address] [place] [address] Radha Jamison DO [address] [place] [address] Chronic bilateral low back pain, unspecified whether [...] Description 06/14/2024 10:00 AM EDT Medication Management [facility] [address] [place] [address] Nelia Sullivan PharmD [address] [place] [phone] 06/25/2024 9:45 AM EDT Office Visit [facility]INE [address] [place] [address] Radha Jamison DO [address] [place] [address] documented as of this encounter Goals Goal [...] documented as of this encounter Care Teams Web Portal Developer Relationship Specialty Start Date End Date Radha Jamison DO [address] [place] [phone] PCP - General Family Medicine 01/26/12 Abdias Murillo, KeithD [address] [place] [address] Pharmacist Internal Medicine 03/21/22 08/30/23 Nelia Sullivan, KeithD [address] [place] [address] Pharmacist Internal Medicine 08/31/23 Laurel Monterroso Horse Stud ManagerAutomatic Data Processing Planner 10/27/22 Saige Aguilar 09/26/23 documented as of this encounter
--- OUTSIDE RECORDS SUMMARY | 2024-05-29 11:20 | XMS_ITS | Encounter Summary ---
Author Organization [employer] Address 75 [facility] 7t [place] [address] Care Team Providers Care Composing Room Machinist Name Role Phone Radha Jamison DO Primary Care Provider [phone] Abdias Murillo PharmD Unavailable Unavail able Nelia Sullivan PharmD Unavailable [phone] Reason for Visit * Reason Comments Med Refill Encounter Details Date Type Department Care Team (Late st Contact Info) Description 02/14/2023 Refill [facility] MEDICINE [address] [place], [place] [phone] Radha Jamison DO [address] [place] [address] Chronic bilateral low back pain, unspecified whether [...] Management [facility] MEDICINE [address] [place] [address] Nelia Sullivan PharmD [address] [place] [phone] 06/25/2024 9:45 AM EDT Office Visit [facility] MED[facility]INE [address] [place] [phone] Radha Jamison DO [address] [place] [phone] documented as of this encounter Goals Goal [...] documented as of this encounter Care Teams Composing Room Machinist Relationship Specialty Start Date End Date Radha Jamison DO [address] [place] [address] PCP - General Family Medicine 01/26/12 Abdias Murillo, KeithD [address] [place] [address] Pharmacist Internal Medicine 03/21/22 08/30/23 Nelia Sullivan, KeithD 230 [facility] [place] [address] Pharmacist Internal Medicine 08/31/23 Laurel Monterroso Contract Management SpecialistRn Interventional 10/27/22 Saige Aguilar 09/26/23 documented as of this encounter
--- OUTSIDE RECORDS SUMMARY | 2024-05-29 11:20 | XMS_ITS | Encounter Summary ---
Author Organization [employer] Address [address] [facility] [address] [place] [address] Care Team Providers Care Vibrating Screed Operator Name Role Phone Radha Jamison DO Primary Care Provider DelAbdias hardy PharmD Unavailable Unavail able Nelia Sullivan PharmD Unavailable Reason for Visit * Reason Comments Med Refill Encounter Details Date Type Department Care Team (Late st Contact Info) Description 01/24/2022 Telephone [facility] [address] [place], [place] [id number] Radha Jamison DO [address] [place] [address] Med Refill Social History Tobacco Use Types [...] Description 06/14/2024 10:00 AM EDT Medication Management [facility] [address] [place] [id number] Nelia Sullivan PharmD [address] [place] [address] 06/25/2024 9:45 AM EDT Office Visit [address] [phone] Radha Jamison DO [address] [place] [address] documented as of this encounter Visit Diagnoses Diagnosis Chronic bilateral low back pain, unspecified whether sciatica present documented in this encounter Care Teams Vibrating Screed Operator Relationship Specialty Start Date End [place] [address] PCP - General Family Medicine 01/26/12 Abdias Murillo, KeithD [address] [place] [id number] Pharmacist Internal Medicine 03/21/22 08/30/23 Nelia Sullivan, PharmD [address] [place] [id number] Pharmacist Internal Medicine 08/31/23 Laurel Monterroso [employer] Dem[employer] 10/27/22 Saige Aguilar 09/26/23 documented as of this encounter
== END 2024-05-29 09:56 | disposition home or self-care (01) ==
LOC: HO.US 09:55
PROVIDERS: PCP Family Medicine; Visit Provider Surgery Vascular Surgery
DX: I73.9 Peripheral vascular disease, unspecified (principal)
CPT/HCPCS: 93925

== ENCOUNTER → 2024-05-29 09:58 | Outpatient (BNV) | payer MEDICAID, SELFPAY | PROVIDERS: PCP Family Medicine; Visit Provider Radiology Diagnostic Radiology | DX: I70.203 Unspecified atherosclerosis of native arteries of extremities, bilateral legs (principal) | CPT/HCPCS: 93925 ==

== ENCOUNTER 2024-06-07 18:07 | Emergency (ER) | payer MEDICAID, SELFPAY ==
--- NOTE | ~2024-06-07 | XR_ITS ---
CLINICAL HISTORY: pain and swelling 3 view left ankle Comparison: None Findings: No acute fracture. No dislocation. Ankle mortise is intact. No significant degenerative changes. No erosions. Calcaneal enthesophytes. No ankle effusion. IMPRESSION: 1. No acute findings. This document has been electronically signed by: Janette Dasilva MD on 06/07/2024 20:32:40
--- NOTE | ~2024-06-07 | US_ITS ---
CLINICAL HISTORY: swelling pain --- Additional Notes or Special Instructions: hx DVTs Venous duplex ultrasound left lower extremity Comparison: None Findings: The visualized deep veins are fully compressible with normal Doppler color flow and spectral tracings. No popliteal cyst. 1.6 cm left inguinal lymph node. IMPRESSION: 1. Negative for left lower extremity deep vein thrombosis. This document has been electronically signed by: Janette Dasilva MD on 06/07/2024 19:17:44
[2024-06-07 18:14] VITALS: BP 193/83; PULSE 102; RESP 20; TEMP 36.8; O2SAT 100; BMI 24.9
--- NOTE | 2024-06-07 18:18 | ED.EXTPRO ---
HPI - Extremity Problem General Chief complaint: Extremity Injury, Lower Stated complaint: l leg pain Time Seen by Provider: 06/07/24 19:37 History of Present Illness ED Provider: Carisa METZ Narrative: The patient is a 63-year-old female with a history of coronary disease and vascular disease. She also has a history of type 2 diabetes. She is apparently awaiting coronary bypass graft surgery but her surgeon wants her to improve her hemoglobin A1c prior to surgery. The patient says that she has had pain and swelling in the left lower leg for about 2 days. She denies any injury. She feels the pain primarily around the left ankle and she has been limping. She has had no fever, sweats, chills. No chest pain or shortness of breath. Related Data Home Medications ?Medication ?Instructions ?Recorded ?Confirmed metformin 1,000 mg tablet 1,000 mg PO BID 12/22/19 01/30/24 aspirin 81 mg tablet,delayed 81 mg PO DAILY 01/02/20 01/30/24 release (Adult Low Dose Aspirin) atorvastatin 80 mg tablet (Lipitor) 80 mg PO BEDTIME 01/02/20 01/30/24 escitalopram oxalate 20 mg tablet 20 mg PO DAILY@1800 01/02/20 01/30/24 (Lexapro) mirtazapine 45 mg tablet 45 mg PO BEDTIME 01/02/20 01/30/24 multivitamin 1 tab PO DAILY 01/02/20 01/30/24 blood sugar diagnostic (FreeStyle #10 ea 03/30/21 11/15/23 Lite Strips) insulin degludec 100 unit/mL (3 10 unit subcut DAILY 10/03/22 01/30/24 mL) subcutaneous pen (Tresiba FlexTouch U-100 insulin) omeprazole 40 mg capsule,delayed 20 mg PO DAILY@0630 PRN Heartburn 11/15/23 01/30/24 release empagliflozin 10 mg tablet 10 mg PO DAILY 01/01/24 01/30/24 (Jardiance) docusate sodium 100 mg capsule 100 mg PO BID 01/30/24 01/30/24 ezetimibe 10 mg tablet 10 mg PO DAILY 04/11/24 ferrous fumarate 325 mg (106 mg 325 mg PO BID 04/11/24 iron) tablet Previous Rx's ?Medication ?Instructions ?Recorded pioglitazone 15 mg tablet 15 mg PO DAILY 30 days #30 tabs 12/02/20 lorazepam 1 mg tablet (Ativan) 1 mg PO BEDTIME PRN anxiety/sleep 11/06/23 #10 tabs carvedilol 25 mg tablet (Coreg) 25 mg PO BID #120 tabs 04/29/24 isosorbide mononitrate 30 mg 30 mg PO QAM #90 tabs 04/29/24 tablet,extended release 24 hr lisinopril 40 mg tablet 40 mg PO DAILY #90 tabs 04/29/24 nifedipine 90 mg tablet,extended 90 mg PO BEDTIME #90 tabs 04/29/24 release 24 hr benzonatate 200 mg capsule 200 mg PO TID PRN cough #20 caps 05/18/24 fmvkpgicpm-jlcwtxbvldirv-knomxzlg 1 tab PO Q6H PRN haeadace #20 tabs 05/18/24 50 mg-325 mg-40 mg tablet ibuprofen 600 mg tablet 600 mg PO Q6H PRN fever or pain 05/18/24 #30 tabs oseltamivir 75 mg capsule (Tamiflu) 75 mg PO BID 5 days #10 caps 05/18/24 acetaminophen 500 mg capsule 1,000 mg (2 x 500 mg) PO Q8H PRN 06/07/24 fever or pain #14 caps Allergies Allergy/AdvReac Type Severity Reaction Status Date / Time latex [LATEX] Allergy Severe RASH Verified 06/07/24 18:19 naproxen [From NAPROSYN] AdvReac Intermediate TACHYCARDIA Verified 06/07/24 18:19 Review of Systems Review of Systems: Yes all other systems are reviewed and are negative PMF Past Medical History Medical History NSTEMI (non-ST elevated myocardial infarction) Mild aortic valve stenosis LORE (obstructive sleep apnea) Chronic low back pain Lumbar spinal stenosis HTN (hypertension) Vitamin D deficiency HLD (hyperlipidemia) T2DM (type 2 diabetes mellitus) H. pylori infection CAD (coronary artery disease) Cyst (solitary) of breast Kidney calculi Arthritis Asthma HTN (hypertension) Diabetes Surgical History History of right-sided carotid endarterectomy (~11/2022) S/P aortogram History of esophagogastroduodenoscopy (EGD) Hx of colonoscopy History of breast surgery History of cardiac cath Family History Family History Mother Diabetes Liver cancer Social History Social History Household Members: Children Household Members Other:: friend and adult son Housing: Apartment Are you a primary student career development specialist to a significant other at home: No Do you presently have visiting nurse or other home services: Yes (RN 2x/week) Alcohol intake: never Comment: refuses bed alarm Patient Tobacco Use Status: Current everyday Tobacco user Tobacco use type: Cigarette Cigarette Packs Per Day: 1 Cigarettes Per Day: 4 Years Smoked: 30 e-Cigarette/Vaping Use: Currently Using Second Hand Smoke Exposure: Yes Advance Directives: Yes Advance Directives on File: Yes Advance Directives Date on File: 09/26/23 service: No Current occupational status: unemployed and disabled Physical Exam Vital Signs: Vital Signs: Last Vital Signs Temp 98.3 F 06/07/24 18:14 Pulse 102 H 06/07/24 18:14 Resp 20 06/07/24 18:14 BP 193/83 H 06/07/24 18:14 Pulse Ox 100 06/07/24 18:14 O2 Del Method Room Air 06/07/24 18:14 BMI result Body Mass Index 24.9 Const: Other: The patient is a chronically ill-appearing 63-year-old woman who was awake and alert. She looks chronically ill but not obviously acutely ill. HEENT: Other: Face is symmetrical, mucous membranes moist Eyes: General: appearance normal, both eyes and all related structures Neck: Neck: Yes normal visual inspection Resp: Effort & Inspection: normal respiratory effort Auscultation: clear to auscultation bilaterally Cardio: Rate: regular rate Rhythm: regular rhythm Heart sounds: S1 normal heart sound present and S2 normal heart sound present Skin: Other: There is some edema to the left lower leg, the left ankle, and the left foot. The skin is intact. No erythema. Neuro: Other: The patient is awake and alert with a normal mental status. She moves her extremities symmetrically. She walks with a limp because of discomfort in the left lower leg or ankle Extrem: Other: Some mild edema of the left lower leg, the left ankle, and the foot. The swelling seems most prominent around the left ankle. She is able to put the ankle through a reasonably good range of motion and can wiggle all the toes. She can move the knee normally. No deformity aside from the edema Course Course Course Narrative: This is a Rapid Medical Examination (RME) performed by Jon Rey PA-C in triage. Full HPI, ROS, assessment and treatment plan per primary provider in the Main ED. 06/07/24 181 BENJAMÍN Monsivais Hx: 63 yo female hx of RI, DM, HTN, asthma, arthritis, LORE here for eval of LLE pain/swelling x4 days. hx DVT, on aspirin, no thinners. denies chest pain. admits to chronic SOB, nothing worsening. PE/vitals: 2+ pitting edema to LLE, ttp, dp pulse intact, tachycardic Plan: labs, ekg, venous duplex Medical Decision Making Medical Decision Making MDM Narrative: The patient is a 63-year-old female with a history of type 2 diabetes and also with vascular disease. She has pain and swelling in the left lower leg that seems to be most prominent around the left ankle. She denies injuring the ankle. I do not see anything that looks like an infectious process. A DVT ultrasound was ordered at triage which is negative. CBC shows a normal white count and differential. A basic metabolic panel is not remarkably different from previous results. EKG is unchanged from previous. An x-ray of the left ankle is negative. The patient has good pulses in the left foot. The foot is warm and well-perfused. Sensation is intact. I do not have a very good explanation for the swelling and pain in the patient's left lower leg, ankle, and foot but given a negative DVT ultrasound, good pulses in the foot, and a negative x-ray, and no sign of infection, I do not think any acutely dangerous process is at work. She will be provided with an Aircast for the ankle. She was offered crutches since she is limping but she does not think she will do well with the crutches which I think is probably true. Therefore she will be discharged with the Aircast and the recommendation to stay off the leg as much as possible and to keep it elevated. She should follow up with her PCP next week or return to the ER if worse. Lab Data 06/07/24 18:38 06/07/24 18:38 Labs: Lab Results 06/07/24 Range/Units 18:38 WBC 6.2 (4.8-10.8) X10*3/uL RBC 3.51 L (4.20-5.50) X10*6/uL Hgb 10.4 L (12.0-16.0) g/dl Hct 31.7 L (37.0-47.0) % MCV 90.3 (80.0-98.0) fL MCH 29.6 (27.0-33.0) pg MCHC 32.8 (31.0-35.0) g/dl RDW 14.3 (11.0-16.0) % Plt Count 321 D (160-400) X10*3/uL MPV 9.1 L (9.4-12.3) fL Immature Gran % (Auto) 0.3 (0.0-0.4) % Neut % (Auto) 66.4 (45-73) % Lymph % (Auto) 23.9 (20-40) % Gibson % (Auto) 6.5 (2-11) % Eos % (Auto) 2.4 (0-4) % Baso % (Auto) 0.5 (0-2) % Lymph # (Auto) 1.5 (1.2-4.9) X10*3/uL Gibson # (Auto) 0.4 (0.1-1.2) X10*3/uL Eos # (Auto) 0.2 (0.0-0.4) X10*3/uL Baso # (Auto) 0.0 (0.0-0.2) X10*3/uL Abs Immat Gran (auto) 0.02 (0.00-0.03) X10*3/uL Absolute Neuts (auto) 4.1 (2.0-8.3) x10*3/uL Absolute Nucleated RBC 0.000 (0.0-0.012) X10*3/uL Nucleated RBC % (auto) 0.0 (0.0-0.2) /100WBC Sodium 140 (135-145) mmol/L Potassium 4.4 (3.3-5.1) mmol/L Chloride 107 (96-108) mmol/L Carbon Dioxide 27 (22-29) mmol/L Anion Gap 10 L (12-20) BUN 18 H (9-16) mg/dL Creatinine 1.09 (0.5-1.4) mg/dL Estim Creat Clear Calc 48.1 Estimated GFR 51 Random Glucose 210 H (60-115) mg/dL Calcium 9.1 D (8.4-10.2) mg/dL Magnesium 2.1 (1.6-2.6) mg/dL Total Bilirubin 0.2 (0.0-1.0) mg/dL AST 17 (5-31) U/L ALT 9 (0-31) U/L Alkaline Phosphatase 87 (39-117) U/L B-Natriuretic Peptide 75 (<100) pg/mL Total Protein 6.4 L (6.5-8.0) g/dL Albumin 3.5 (3.5-5.0) g/dL Discharge Plan Discharge Clinical Impression: Pain and swelling of left ankle Patient Disposition: Home, Self-Care Additional Instructions: The ultrasound of your left leg shows no blood clot in your leg. The x-ray of your left ankle is normal. Your other testing is also unremarkable. Please wear the ankle brace provided. Please rest your left leg and keep it elevated often. Please contact your regular doctor's office on Monday for a follow up appointment. I have sent a prescription for Tylenol to the [facility] pharmacy on [facility]. Return to the emergency room if worse. Prescriptions: New acetaminophen 500 mg capsule 1,000 mg PO Q8H PRN (Reason: fever or pain) Qty: 14 0RF No Action pioglitazone 15 mg tablet 15 mg PO DAILY 30 Days Qty: 30 11RF Jardiance 10 mg tablet 10 mg PO DAILY metformin 1,000 mg Tablet 1,000 mg PO BID lorazepam [Ativan] 1 mg tablet 1 mg PO BEDTIME PRN (Reason: anxiety/sleep) Qty: 10 0RF benzonatate 200 mg capsule 200 mg PO TID PRN (Reason: cough) Qty: 20 0RF rknypjamfh-ksxvivnfzuyfn-javt 50-325-40 mg tablet 1 tab PO Q6H PRN (Reason: haeadace) Qty: 20 0RF oseltamivir [Tamiflu] 75 mg capsule 75 mg PO BID 5 Days Qty: 10 0RF ibuprofen 600 mg tablet 600 mg PO Q6H PRN (Reason: fever or pain) Qty: 30 0RF omeprazole 40 mg capsule,delayed release(DR/EC) 20 mg PO DAILY@0630 PRN (Reason: Heartburn) multivitamin Tablet 1 tab PO DAILY aspirin [Adult Low Dose Aspirin] 81 mg tablet,delayed release (DR/EC) 81 mg PO DAILY escitalopram oxalate [Lexapro] 20 mg tablet 20 mg PO DAILY@1800 mirtazapine 45 mg tablet 45 mg PO BEDTIME atorvastatin [Lipitor] 80 mg tablet 80 mg PO BEDTIME Tresiba FlexTouch U-100 100 unit/mL (3 mL) insulin pen 10 unit subcut DAILY (DME) FreeStyle Lite Strips Strip See Rx Instructions Not Applicable QID Qty: 10 Rx Instructions: As directed ezetimibe 10 mg tablet 10 mg PO DAILY carvedilol [Coreg] 25 mg tablet 25 mg PO BID Qty: 120 4RF Rx Instructions: must administer with a meal/food isosorbide mononitrate 30 mg tablet extended release 24 hr 30 mg PO QAM Qty: 90 4RF lisinopril 40 mg tablet 40 mg PO DAILY Qty: 90 4RF nifedipine 90 mg tablet extended release 24hr 90 mg PO BEDTIME Qty: 90 4RF docusate sodium 100 mg capsule 100 mg PO BID ferrous fumarate 325 mg (106 mg iron) tablet 325 mg PO BID Referrals: Radha Jamison DO [Primary Care Provider] - (nontraumatic pain and swelling of left ankle/lower leg) Print Language: Citizen [place]
--- NOTE | 2024-06-07 18:19 | ECG_ITS ---
Test Reason : TACHYCARDIA Blood Pressure : */* mmHG Vent. Rate : 94 BPM Atrial Rate : 94 BPM P-R Int : 134 ms QRS Dur : 78 ms QT Int : 352 ms P-R-T Axes : 26 -9 77 degrees QTcB Int : 440 ms Normal sinus rhythm Minimal voltage criteria for LVH, may be normal variant ( R in aVL ) Abnormal ECG When compared with ECG of 18-May-2024 20:12, No significant change was found Referred By: Yohana Rey Electronically Signed By: JM DU
[2024-06-07 18:43] LABS: MANUAL DIFF FLAG NO
[2024-06-07 18:46] LABS: Basophils Percent Auto 0.5 % (0-2); Eosinophils Absolute Auto 0.2 X10*3/uL (0.0-0.4); Eosinophils Percent Auto 2.4 % (0-4); Hematocrit 31.7 % (37.0-47.0); Hemoglobin 10.4 g/dl (12.0-16.0); Imm Gran Abs Auto 0.02 X10*3/uL (0.00-0.03); Imm Gran Pct Auto 0.3 % (0.0-0.4); Lymphocytes Absolute Auto 1.5 X10*3/uL (1.2-4.9); Lymphocytes Percent Auto 23.9 % (20-40); Mean Corpuscular HGB Conc 32.8 g/dl (31.0-35.0); Mean Corpuscular Hemoglobin 29.6 pg (27.0-33.0); Mean Corpuscular Volume 90.3 fL (80.0-98.0); Mean Platelet Volume 9.1 fL (9.4-12.3); Monocytes Absolute Auto 0.4 X10*3/uL (0.1-1.2); Monocytes Percent Auto 6.5 % (2-11); Neutrophils Absolute Auto 4.1 x10*3/uL (2.0-8.3); Neutrophils Percent Auto 66.4 % (45-73); Platelet Count 321 X10*3/uL (160-400); Red Blood Count 3.51 X10*6/uL (4.20-5.50); Red Cell Distribution Width 14.3 % (11.0-16.0); White Blood Count 6.2 X10*3/uL (4.8-10.8)
[2024-06-07 18:58] LABS: Alanine Aminotransferase 9 U/L (0-31); Albumin Level 3.5 g/dL (3.5-5.0); Alkaline Phosphatase 87 U/L (39-117); Anion Gap 10 (12-20); Aspartate Amino Transferase 17 U/L (5-31); Bilirubin Total 0.2 mg/dL (0.0-1.0); Blood Urea Nitrogen 18 mg/dL (9-16); Calcium 9.1 mg/dL (8.4-10.2); Carbon Dioxide 27 mmol/L (22-29); Chloride 107 mmol/L (96-108); Creatinine Clr Calc Pharmacy 48.1; Estimated Glomerular Filt Rate 51; Glucose Random 210 mg/dL (60-115); Magnesium 2.1 mg/dL (1.6-2.6); Potassium 4.4 mmol/L (3.3-5.1); Sodium 140 mmol/L (135-145); Total Protein 6.4 g/dL (6.5-8.0)
[2024-06-07 19:03] LABS: B Type Natriuretic Peptide 75 pg/mL (<100)
[2024-06-07] MEDS: Acetaminophen 325 MG TABLET 975 MG PO (21:15)
[2024-06-07 21:43] VITALS: BP 137/48; PULSE 87; RESP 16; TEMP 36.7; O2SAT 97
[2024-06-07 22:00] VITALS: BP 137/48; PULSE 87; RESP 16; TEMP 36.7; O2SAT 97
== END 2024-06-07 22:01 | disposition home or self-care (01) ==
PROVIDERS: Physician Assistant Medical; Emergency Provider Emergency Medicine; PCP Family Medicine
DX: M79.662 Pain in left lower leg (principal); R60.0 Localized edema; R00.0 Tachycardia, unspecified; E11.9 Type 2 diabetes mellitus without complications; I10 Essential (primary) hypertension; E78.5 Hyperlipidemia, unspecified; J45.909 Unspecified asthma, uncomplicated; F17.210 Nicotine dependence, cigarettes, uncomplicated; Z79.82 Long term (current) use of aspirin; Z79.02 Long term (current) use of antithrombotics/antiplatelets; Z79.84 Long term (current) use of oral hypoglycemic drugs
CPT/HCPCS: 36415; 73610; 80053; 83735; 83880; 85025; 93005; 93971; 99284

== ENCOUNTER → 2024-06-07 18:17 | Outpatient (BNV) | payer MEDICAID, SELFPAY | PROVIDERS: Emergency Provider Emergency Medicine; PCP Family Medicine; Visit Provider Specialist | DX: M79.605 Pain in left leg (principal); R22.42 Localized swelling, mass and lump, left lower limb | CPT/HCPCS: 73610; 93971 ==

== ENCOUNTER → 2024-06-07 18:19 | Outpatient (BNV) | payer MEDICAID, SELFPAY | PROVIDERS: Emergency Provider Emergency Medicine; PCP Family Medicine; Visit Provider Internal Medicine | DX: R00.0 Tachycardia, unspecified (principal); R94.31 Abnormal electrocardiogram [ECG] [EKG] | CPT/HCPCS: 93010 ==

== ENCOUNTER 2024-06-13 10:32 | Outpatient (AMB) | payer MEDICAID, SELFPAY ==
--- NOTE | 2024-06-13 10:33 | A.OFFVIS_ITS ---
Intake Visit Reasons: 6m follow up s/p Arterial US 05/29/24 Intake Note: Patient presents for s/p arterial US 05/29/24. Patient states she went to the ED due to leg swelling. Primarily her left leg. Accompanied by: Self / Same As Patient Allergies latex [LATEX] Allergy (Severe, Verified 06/13/24 10:34) RASH naproxen [From NAPROSYN] Adverse Reaction (Intermediate, Verified 06/13/24 10:34) TACHYCARDIA HPI HPI 6m follow up s/p Arterial US 05/29/24: Details: The patient is a 63-year-old female presenting for a routine arterial follow-up. Noteworthy in her medical history are a carotid endarterectomy performed in 2022 and a left femoro-popliteal bypass in 2020. Recently, she experienced notable swelling in her leg, which required hospital evaluation. The swelling subsided after she was treated with an anti-inflammatory medication. She now presents for vascular follow-up. [facility] Medical History NSTEMI (non-ST elevated myocardial infarction) Mild aortic valve stenosis LORE (obstructive sleep apnea) Chronic low back pain Lumbar spinal stenosis HTN (hypertension) Vitamin D deficiency HLD (hyperlipidemia) T2DM (type 2 diabetes mellitus) H. pylori infection CAD (coronary artery disease) Cyst (solitary) of breast Kidney calculi Arthritis Asthma HTN (hypertension) Diabetes Surgical History History of right-sided carotid endarterectomy (~11/2022) S/P aortogram History of esophagogastroduodenoscopy (EGD) Hx of colonoscopy History of breast surgery History of cardiac cath Family History Mother Diabetes Liver cancer Social History Household Members: Children Household Members Other:: friend and adult son Housing: Apartment Are you a primary ocular care technician to a significant other at home: No Do you presently have visiting nurse or other home services: Yes (RN 2x/week) Alcohol intake: never Comment: refuses bed alarm Patient Tobacco Use Status: Current everyday Tobacco user Tobacco use type: Cigarette Cigarette Packs Per Day: 1 Cigarettes Per Day: 4 Years Smoked: 30 e-Cigarette/Vaping Use: Currently Using Second Hand Smoke Exposure: Yes Advance Directives Date on File: 09/26/23 service: No Current occupational status: unemployed and disabled Review of Systems Const All systems reviewed & are unremarkable except as noted in HPI and below Reports no additional complaints ENT Reports Normal hearing present Card Denies chest pain, Denies chest pain at rest, Denies chest pain with activity a nd Denies pedal edema Resp Denies cough GI Denies abdominal pain Musc Denies abnormal gait, Denies muscle cramps and Denies radiating pain into limb Skin/Breast Denies skin ulcer and Denies wounds Neuro Reports Normal hearing present and Denies abnormal gait Psych Reports no additional complaints Physical Exam Const General: cooperative, healthy appearing and comfortable Orientation/consciousness: oriented to person, oriented to place and oriented to time HEENT Head: Yes normal to inspection Neck Neck: Yes normal visual inspection Carotids: no bruits Chest Chest palpation & inspection: normal inspection of the chest Resp Effort & Inspection: normal respiratory effort and able to speak in complete sentences Auscultation: clear to auscultation bilaterally, no crackles, no rales, no rhonchi and no wheezes Cardio Other: Bilateral DP signals Rate: regular rate Rhythm: regular rhythm Heart sounds: S1 normal heart sound present and S2 normal heart sound present Bruits: no carotid bruits GI Inspection: Yes normal to inspection Skin Wounds: no wounds Hair: normal Neuro General: oriented to person, oriented to place and oriented to time Cranial nerves: Yes CN's II-XII intact bilaterally and Yes Normal hearing present Cognition (Neuro): normal cognition Motor exam (neuro): 5/5 motor strength present throughout Extrem Other: venous exam: No significant superficial varicosities or spider telangiectasias, minimal edema General: No clubbing, No cyanosis and No edema Psych Appearance: grossly normal Mental Status: mental status grossly normal Speech and movement: Normal speech and movement present Results Reviewed Results Reviewed: Noninvasive arterial testing dated 05/29/2024 demonstrates occluded right SFA inflow disease left leg patent fem-pop written report and images were reviewed Assessment & Plan Assessment & Plan (1) PAD (peripheral artery disease): Comment: 05/18/2020 - left fem-pop bypass 12/02/2020 - left angioplasty profundus femoris and popliteal inclusive is of distal anastomosis 05/17/2021 - right common iliac stent 04/13/2022 diagnostic angiogram Code(s): I73.9 - Peripheral vascular disease, unspecified Category: Medical Plan: In short patient has stable claudication. I did review the pathophysiology of peripheral vascular disease with the patient. In addition we did discuss routine conservative measures including a healthy diet and the importance of exercise and ambulation. We did discuss risk factor modification. The patient will continue to to follow-up with surveillance follow-up in approximately 6 months. Thank you for allowing us to participate in this patient's care. If there are any questions or concerns please do not hesitate to contact us. (2) Bilateral carotid artery stenosis: Comment: 11/28/2022 - right carotid endarterectomy Code(s): I65.23 - Occlusion and stenosis of bilateral carotid arteries Category: Medical Plan: In short patient has asymptomatic carotid disease. We have reviewed signs and symptoms of a stroke. We also discussed risk factor modification inclusive a healthy diet low in cholesterol. The patient will follow up with us with surveillance ultrasound of the carotids 6 months. Should there be any changes or signs or symptoms of a stroke we will be happy to see them back sooner. Thank you for allowing us to participate in this patient's care. If there are any questions or concerns please do not hesitate to contact us. Orders: Orders US arterial duplex LE BI 6 Months I73.9 - Peripheral vascular disease, unspecified US carotid duplex BI 6 Months I65.23 - Occlusion and stenosis of bilateral carotid arteries Patient Instructions: - Continue to monitor for any new symptoms or recurrence of swelling in the legs. - Follow-up with an ultrasound for both the legs and neck in six months. - Take prescribed medications as instructed by the hospital for leg swelling. - Contact the healthcare provider if there are any changes or concerns with leg symptoms. Coding Level of Care Code Est Pt Level 4 (09955) Complex EM visit Add On G2211 Diagnoses PAD (peripheral artery disease) I73.9 Bilateral carotid artery stenosis I65.23
--- OUTSIDE RECORDS SUMMARY | 2024-06-13 12:05 | XMS_ITS | Encounter Summary ---
Author Organization [email or web address] Address 75 [facility] 7t [place] [address] Care Team Providers Care Interpreter For The Deaf Name Role Phone Radha Jamison DO Primary Care Provider +1- [phone] Nelia Sullivan PharmD Unavailable [phone] Reason for Visit * Reason Comments Med Refill Encounter Details Date Type Department Care Team ([facility] st Contact Info) Description 03/19/2024 Refill [facility] MEDICINE 230 [place], [place] [phone] Radha Jamison DO 230 [place] [address] Chronic bilateral low back pain, unspecified whether sciatica present Social History Tobacco Use Types Packs/Day Years Used Date Smoking Tobacco: Every Day Cigarettes 1 44.8 Started: 08/31/1979 Passive Smoke Exposure: Current Smokeless [...] the past 12 months, has t he [employer], gas, oil or water [employer] threatened to shut off services in [...] 06/14/2024 10:00 AM EDT Medication Management [facility] MEDICINE [address] [place] [address] Puia, Nelia, PharmD [address] [place] [address] 06/18/2024 11:45 AM EDT Office Visit [facility]INE [address] [place] [address] Radha Jamison DO 230 [place] [address] documented as of this encounter Goals Goal [...] documented as of this encounter Care Teams Interpreter For The Deaf Relationship Specialty Start Date End Date Radha Jamison DO 230 [place] [address] PCP - General Family Medicine 01/26/12 Nelia Sullivan, PharmD 230 [place] [address] Pharmacist Internal Medicine 08/31/23 Laurel Monterroso OverhaulerLine Camera Operator 10/27/22 Saige Aguilar 09/26/23 documented as of this encounter
--- OUTSIDE RECORDS SUMMARY | 2024-06-13 12:05 | XMS_ITS | Encounter Summary ---
Author Organization [employer] Address 75 [facility] 7t [place] [address] Care Team Providers Care Septic Tank Service Technician Name Role Phone Radha Jamison DO Primary Care Provider +1- [phone] Nelia Sullivan PharmD Unavailable [phone] Reason for Visit * Reason Onset Date Comments Med Refill 03/06/2024 Encounter Details Date Type Department Care Team (Late st Contact Info) Description 03/06/2024 Telephone [facility] MEDICINE 230 [place], [place] [phone] Radha Jamison DO 230 [place], [place] [phone] Med Refill Social History Tobacco Use Types [...] the past 12 months, has t he [employer], gas, oil or water [email or web address] threatened to shut off services in your [...] immediate release tablet To be sent to: [facility] pharmacy documented in this encounter Plan of Treatment Upcoming Encounters Date Type Department Care Team (Late st Contact Info) Description 06/14/2024 10:00 AM EDT Medication Management [facility] MEDICINE [address] [place] [address] Nelia Sullivan PharmD 230 [place] [address] 06/18/2024 11:45 AM EDT Office Visit [facility]INE [address] [place] [address] Radha Jamison DO 230 [place] [address] documented as of this encounter Goals Goal [...] documented as of this encounter Care Teams Septic Tank Service Technician Relationship Specialty Start Date End Date Radha Jamison DO [address] [place] [address] PCP - General Family Medicine 01/26/12 Nelia Sullivan, PharmD [address] [place] [address] Pharmacist Internal Medicine 08/31/23 Laurel Monterroso Lining Machine OperatorBrand Analyst 10/27/22 Saige Aguilar 09/26/23 documented as of this encounter
--- OUTSIDE RECORDS SUMMARY | 2024-06-13 12:05 | XMS_ITS | Encounter Summary ---
Author Organization [employer] Address 75 [facility] 7t [place] [address] Care Team Providers Care Tower Technician Name Role Phone Radha Jamison DO Primary Care Provider +1- [phone] Nelia Sullivan PharmD Unavailable [phone] Reason for Visit * Reason Comments Med Refill Encounter Details Date Type Department Care Team ([facility] Contact Info) Description 03/05/2024 Telephone [facility] MEDICINE 230 [place], [place] [phone] Radha Jamison DO 230 [place] [address] Med Refill Social History Tobacco Use Types [...] 06/14/2024 10:00 AM EDT Medication Management [facility] MEDICINE [address] [place] [address] Nelia Sullivan, PharmD [address] [place] [address] 06/18/2024 11:45 AM EDT Office Visit [facility] MEDICINE [address] [place] [address] Radha Jamison DO [address] [place] [address] documented as of this encounter Goals Goal [...] documented as of this encounter Care Teams Tower Technician Relationship Specialty Start Date End Date Radha Jamison DO 230 [place] [address] PCP - General Family Medicine 01/26/12 Nelia Sullivan PharmD 230 [place] [address] Pharmacist Internal Medicine 08/31/23 Laurel Monterroso Film RecordistMandarin Tutor 10/27/22 Saige Aguilar 09/26/23 documented as of this encounter
--- OUTSIDE RECORDS SUMMARY | 2024-06-13 12:05 | XMS_ITS | Encounter Summary ---
Author Organization [employer] Address 75 [facility] 7t [place] [address] Care Team Providers Care Consultant Internship Name Role Phone Radha Jamison DO Primary Care Provider +1- [phone] Nelia Sullivan PharmD Unavailable [phone] Reason for Visit * Reason Comments Med Refill Encounter Details Date Type Department Care Team ([facility] Contact Info) Description 12/28/[address] [facility] MEDICINE 230 [place], [place] [phone] Radha Jamison DO 230 [place] [address] Chronic bilateral low back pain, unspecified whether [...] the past 12 months, has t he [employer], gas, oil or water [employer] threatened to shut off services in your [...] 06/14/2024 10:00 AM EDT Medication Management [facility] MEDICINE [address] [place] [address] Puia, Nelia, PharmD [address] [place] [address] 06/18/2024 11:45 AM EDT Office Visit [facility]INE [address] [place] [address] Radha Jamison DO 230 [place] [address] documented as of this encounter Goals Goal [...] documented as of this encounter Care Teams Consultant Internship Relationship Specialty Start Date End Date Radha Jamison DO 230 [place] [address] PCP - General Family Medicine 01/26/12 Nelia Sullivan, PharmD 230 [place] [address] Pharmacist Internal Medicine 08/31/23 Laurel Monterroso Ancient Art CuratorTop Taper Machine 10/27/22 Saige Aguilar 09/26/23 documented as of this encounter
--- OUTSIDE RECORDS SUMMARY | 2024-06-13 12:05 | XMS_ITS | Encounter Summary ---
Author Organization [employer] Address 75 [facility] 7t [place] [address] Care Team Providers Care Assembler Golf Wood Head Name Role Phone Radha Jamison DO Primary Care Provider +1- [phone] Nelia Sullivan PharmD Unavailable [phone] Reason for Visit * Reason Comments Med Refill Encounter Details Date Type Department Care Team ([facility] st Contact Info) Description 02/29/2024 Refill [facility] MEDICINE 230 [place], [place] [phone] Radha Jamison DO 230 [place] [address] Chronic bilateral low back pain, unspecified whether [...] the past 12 months, has t he [employer], gas, oil or water [employer] threatened to shut off services in your [...] until seen by PCP or seen by PASTING MACHINE OFFBEARER. Scheduled PASTING MACHINE OFFBEARER 03/05/24. documented in this encounter Plan of Treatment Upcoming Encounters Date Type Department Care Team (Late st Contact Info) Description 06/14/2024 10:00 AM EDT Medication Management [facility] MEDICINE [address] [place] [address] Nelia Sullivan, KeithD 230 [place] [address] 06/18/2024 11:45 AM EDT Office Visit [facility] MEDICINE [address] [place] [address] Radha Jamison DO 230 [place] [address] documented as of this encounter Goals Goal [...] documented as of this encounter Care Teams Assembler Golf Wood Head Relationship Specialty Start Date End Date Radha Jamison DO 230 [place] [address] PCP - General Family Medicine 01/26/12 Nelia Sullivan, PharmD 230 [place] [address] Pharmacist Internal Medicine 08/31/23 Laurel Monterroso Supervisor Painting DepartmentStudent Liaison Officer 10/27/22 Saige Aguilar 09/26/23 documented as of this encounter
--- OUTSIDE RECORDS SUMMARY | 2024-06-13 12:05 | XMS_ITS | Encounter Summary ---
Author Organization [employer] Address 75 [facility] 7t [place] [address] Care Team Providers Care Salesman/Owner Name Role Phone Radha Jamison DO Primary Care Provider [phone]- [phone] Abdias Murillo PharmD Unavailable Unavail able Nelia Sullivan PharmD Unavailable [phone] Reason for Visit * Reason Onset Date Comments uber 05/08/2023 Encounter Details Date Type Department Care Team ([facility] st Contact Info) Description 05/08/2023 Telephone [facility] MEDICINE 230 [place] [address] Radha Jamison DO 230 [place] [address] uber Social History Tobacco Use Types Packs/Day [...] / denial letter via mail. PT-1 Request [id number] Pending . [facility] [address] [place] [address] Residential Tech noticed pt has pending referrals. Residential Tech has added a note to each to add PT1 for referred tooffice. * Telephone Encounter - Ginna Stephen RN - 05/10/2023 9:31 AM EDT Uber booked for tomorrow 8:45am. TC placed to pt. And made pt. Aware. Pt. Also reports PT-1 expiredand would like it renewed for next time, to [facility] * Telephone Encounter - Ciera Carson - 05/10/2023 9:07 AM EDT Tc from pt calling in regards to message above. Pt also received a call, junior underwriter does not see any documentation. Please contact pt at [phone] * Telephone Encounter - Ciera Carson - 05/08/2023 12:54 PM EDT Tc from pt states will need uber transportation for 05/10 with provider. Please contact pt at [phone] documented in this encounter Plan of Treatment Upcoming Encounters Date Type Department Care Team (Late st Contact Info) Description 06/14/2024 10:00 AM EDT Medication Management [facility] MEDICINE [address] [place] [address] Nelia Sullivan PharmD [address] [place] [address] 06/18/2024 11:45 AM EDT Office Visit [address] [address] Radha Jamison DO [address] [place] [address] documented as of this encounter Goals Goal [...] documented as of this encounter Care Teams Salesman/Owner Relationship Specialty Start Date End Date Radha Jamison DO [address] [place] [address] PCP - General Family Medicine 01/26/12 Abdias Murillo, PharmD [address] [place] [address] Pharmacist Internal Medicine 03/21/22 08/30/23 Nelia Sullivan PharmD [address] [place] [address] Pharmacist Internal Medicine 08/31/23 Laurel Monterroso Work CounselorPiano And Organ Refinisher 10/27/22 Saige Aguilar 09/26/23 documented as of this encounter
--- OUTSIDE RECORDS SUMMARY | 2024-06-13 12:05 | XMS_ITS | Encounter Summary ---
Author Organization [employer] Address 75 [facility] 7t [place] [address] Care Team Providers Care Motor Rebuilder Name Role Phone Radha Jamison DO Primary Care Provider +1- [phone] Nelia Sullivan PharmD Unavailable [phone] Reason for Visit * Reason Comments Med Refill Encounter Details Date Type Department Care Team ([facility] st Contact Info) Description 05/17/2024 Refill [facility] MEDICINE 230 [place], [place] [phone] Radha Jamison DO 230 [place] [address] Chronic bilateral low back pain, unspecified whether [...] the past 12 months, has t he [employer], gas, oil or water [employer] threatened to shut off services in your [...] 10:00 AM EDT Medication Management [facility] MEDICINE [address] [place] [address] Puia, Nelia, PharmD [address] [place] [address] 06/18/2024 11:45 AM EDT Office Visit [facility] MEDICINE [address] [place] [address] Radha Jamison DO [address] [place] [address] documented as of this encounter Goals Goal [...] documented as of this encounter Care Teams Motor Rebuilder Relationship Specialty Start Date End Date Radha Jamison DO [address] [place] [address] PCP - General Family Medicine 01/26/12 Nelia Sullivan, PharmD [address] [place] [address] Pharmacist Internal Medicine 08/31/23 Laurel Monterroso Piggyback ClerkBiomedical Instrument Technician 10/27/22 Saige Aguilar 09/26/23 documented as of this encounter
--- OUTSIDE RECORDS SUMMARY | 2024-06-13 12:06 | XMS_ITS | Encounter Summary ---
Author Organization [facility] Address 75 [facility] 7t [place] [address] Care Team Providers Care Hand Meat Salter Name Role Phone Radha Jamison DO Primary Care Provider [phone] DellogAbdias cotto PharmD Unavailable Unavail able Nelia Sullivan PharmD Unavailable [phone] Reason for Visit * Reason Comments Med Refill Encounter Details Date Type Department Care Team ([facility] Contact Info) Description 11/10/2022 Refill [facility] MEDICINE [address] [place] [address] Radha Jamison DO 230 [place] [address] Chronic gastroesophageal reflux disease Social History Tobacco [...] Upcoming Encounters Date Type Department Care Team ([facility] Contact Info) Description 06/14/2024 10:00 AM EDT Medication Management [facility] MEDICINE 230 [place], [place] [phone] Nelia Sullivan PharmD 230 [facility] [place] [address] 06/18/2024 11:45 AM EDT Office Visit [facility] MEDICINE [address] [place] [address] Radha Jamison DO 230 [facility] [place] [address] documented as of this encounter Goals Goal [...] as of this encounter Care Teams Hand Meat Salter Relationship Specialty Start Date End Date Radha Jamison DO Preet [facility] [place] [address] PCP - General Family Medicine 01/26/12 Abdias Murillo, PharmD [address] [place], [place] [address] [place] [address] Pharmacist Internal Medicine 03/21/22 08/30/23 Nelia Sullivan, PharmD Preet [place] [address] Pharmacist Internal Medicine 08/31/23 Laurel Monterroso Business Records ManagerRegulatory Leader 10/27/22 Saige Aguilar 09/26/23 documented as of this encounter
--- OUTSIDE RECORDS SUMMARY | 2024-06-13 12:06 | XMS_ITS | Encounter Summary ---
Author Organization [employer] Address 75 [facility] 7t [place] [address] Care Team Providers Care Property Damage Claims Adjustor Name Role Phone Radha Jamison DO Primary Care Provider +1- [phone] Nelia Sullivan PharmD Unavailable [phone] Reason for Visit * Reason Comments Med Refill Encounter Details Date Type Department Care Team ([facility] Contact Info) Description 01/06/2024 Refill [facility] MEDICINE 230 [place], [place] [phone] Radha Jamison DO 230 [place] [address] Depression, unspecified depression type; Essential (primary) hypertension [...] the past 12 months, has t he [employer], gas, oil or water [employer] threatened to shut off services in your [...] Description 06/14/2024 10:00 AM EDT Medication Management [facility] MEDICINE [address] [place] [address] Puia, Nelia, PharmD [address] [place] [address] 06/18/2024 11:45 AM EDT Office Visit [facility] MEDICINE [address] [place] [address] Radha Jamison DO 230 [place] [address] documented as of this encounter Goals Goal [...] documented as of this encounter Care Teams Property Damage Claims Adjustor Relationship Specialty Start Date End Date Radha Jamison DO 230 [place] [address] PCP - General Family Medicine 01/26/12 Nelia Sullivan, KeithD 230 [place] [address] Pharmacist Internal Medicine 08/31/23 Laurel Monterroso Nut ThreaderCuring Oven Tender 10/27/22 Saige Aguilar 09/26/23 documented as of this encounter
--- OUTSIDE RECORDS SUMMARY | 2024-06-13 12:06 | XMS_ITS | Encounter Summary ---
Author Organization [employer] [facility] Address 75 [facility] 7t [place] [address] Care Team Providers Care Enrichment Assistant Name Role Phone Radha Jamison DO Primary Care Provider [phone]- [phone] DelAbdias hardy PharmD Unavailable Unavail able Nelia Sullivan PharmD Unavailable Reason for Visit * Reason Comments Med Refill Encounter Details Date Type Department Care Team (Late st Contact Info) Description 08/11/2022 Refill [facility] MEDICINE 230 [place] [address] Radha Jamison DO 230 [place] [address] Anemia, unspecified type Social History Tobacco Use [...] for patient to contact Mary Reynolds at [phone]. documented in this encounter Plan of Treatment Upcoming Encounters Date Type Department Care Team (Late st Contact Info) Description 06/14/2024 10:00 AM EDT Medication Management [facility] MEDICINE [address] [place] [address] Nelia Sullivan PharmD [address] [place] [address] 06/18/2024 11:45 AM EDT Office Visit [address] [address] Radha Jamison DO [address] [place] [address] documented as of this encounter Goals Goal [...] documented as of this encounter Care Teams Enrichment Assistant Relationship Specialty Start Date End Date Radha Jamison DO [address] [place] [address] PCP - General Family Medicine 01/26/12 Abdias Murillo, PharmD [address] [place] [address] Pharmacist Internal Medicine 03/21/22 08/30/23 Nelia Sullivan, PharmAdrian [address] [place] [address] Pharmacist Internal Medicine 08/31/23 Laurel Monterroso Visual Presentation ManagerImpregnating Helper 10/27/22 Saige Aguilar 09/26/23 documented as of this encounter
--- OUTSIDE RECORDS SUMMARY | 2024-06-13 12:06 | XMS_ITS | Encounter Summary ---
Author Organization [employer] Address 75 [facility] 7t [place] [address] Care Team Providers Care Ore Storage Drier Name Role Phone Radha Jamison DO Primary Care Provider +1- [phone] Abdias Murillo PharmD Unavailable Unavail able Nelia Sullivan PharmD Unavailable Reason for Visit * Reason Comments Med Refill Encounter Details Date Type Department Care Team (Late st Contact Info) Description 04/14/2023 Refill [facility] MEDICINE 230 [place], [place] [phone] Radha Jamison DO 230 [place], [place] [phone] Type 2 diabetes mellitus with hyperglycemia, with long-term current use of insulin ([facility]) Social History Tobacco Use Types Packs/Day Years [...] Description 06/14/2024 10:00 AM EDT Medication Management [facility] MEDICINE [address] [place] [address] Nelia Sullivan, PharmD [address] [place] [address] 06/18/2024 11:45 AM EDT Office Visit [facility] MEDICINE [address] [place] [address] Radha Jamison DO [address] [place] [address] documented as of this encounter Goals Goal Patient Goal Type Associated Problems Recent Progress Patient-Stated? Author Hemoglobin A1c < 7 Result Component 10.3( 12:32 PM EDT) No Abdias Murillo, PharmD documented as of this encounter Visit Diagnoses Diagnosis Type 2 diabetes mellitus with hyperglycemia, with long-term current use of insulin ([facility]) documented in this encounter Additional Health Concerns Assessment Noted Time PHQ-9 Depression Total Score: 4 11/09/19 23 11:27 AM EDT documented as of this encounter Care Teams Ore Storage Drier Relationship Specialty Start Date End Date Radha Jamison DO [address] [place] [address] PCP - General Family Medicine 01/26/12 Abdias Murillo, KeithD [address] [place] [address] Pharmacist Internal Medicine 03/21/22 08/30/23 Nelia Sullivan, KeithD [address] [place] [address] Pharmacist Internal Medicine 08/31/23 Laurel Monterroso Oral And Maxillofacial PathologistSilver Cleaner 10/27/22 Saige Aguilar 09/26/23 documented as of this encounter
--- OUTSIDE RECORDS SUMMARY | 2024-06-13 12:06 | XMS_ITS | Clinical Summary ---
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 Role Phone ShaheenRadha Primary Care Provider Nelia Sullivan PharmD Unavailable [phone] Allergies Active Allergy Reactions Criticality Noted [...] hyperglycemia, with long-term current use of insulin (CMS/[facility]) TAKE 1 TABLET BY MOUTH [...] edema presence unspecified, unspecified laterality, unspecified whether technician terminal and repeater insulin use ([facility]) Inject 15 Units under the [...] 90 tablet 1 025 Active Continuous Glucose [employer] Instructor (FreeStyle Jenn 3 [place]) device 1 each 3 times daily. Use [...] per week for 28 days. 3 mL Active acetaminophen (Tylenol 8 Hour) 650 MG ER tablet Take 1 tablet (650 mg) by mouth every 8 (eight) hours. 100 tablet 2025 Active hydrOXYzine pamoate (Vistaril) 25 MG capsuleIndications :Mood disorder (CMS/HCC) Take 1 capsule (25 mg) by mouth every 6 (six) hours if needed for anxiety. 60 capsule 2024 Active Diclofenac Sodium 1 % gel Apply 2 g topically if needed in the morning, at noon, in the evening, and at bedtime (pain). 150 g Active lidocaine (Lidoderm) 5 % patch Apply 1-2 patches topically Once per day. Remove & discard patch within 12 hours or as directed by MD. 60 patch 2025 Active baclofen (Lioresal) 10 MG tablet Take 1 tablet (10 mg) by mouth if needed in the morning, at noon, and at bedtime for muscle spasms. 60 tablet 2025 Active acetaminophen (Tylenol 8 Hour) 650 [...] to 7 days. 4 tablet 025 2024 guaiFENesin (Robitussin) 100 MG/5ML liquid Take 10 mL (200 mg) by mouth if needed in the morning, at noon, in the evening, and at bedtime for cough for up to 10 days. 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 05/04/2020 03/18/2022 Encounters Date Type Department Care Team Description 06/11/2024 Telephone [facility] [address] [facility] [place] [address] Radha Jamison DO Appointment Request 06/07/2024 Orders Only GENERIC EXTERNAL DATA DEPARTMENT Provider, Generic External Data 05/24/2024 12:00 PM EDT Office Visit [facility] [address] [place] [address] Radha Jamison DO Influenza A (Primary Dx); Mood disorder (CMS/HCC); Chronic bilateral low back pain, unspecified whether sciatica present; 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, with long-term current use of insulin, macular edema presence unspecified, unspecified laterality (CMS/HCC) 05/24/2024 Telephone [facility] [address] [place] [address] Radha Jamison DO 05/24/2024 Travel 05/20/2024 Patient Outreach [facility] [address] [place] [phone] Radha Jamison DO Care Coordination ([facility]- ED status check) 05/20/2024 Patient Outreach [facility] [address] [place] [phone] Rahda Jamison DO 05/18/2024 Orders Only [facility] External Provider, [facility] 05/17/2024 Refill [facility] [address] [place] [address] Radha Jamison DO Chronic bilateral low back pain, unspecified whether sciatica present 05/17/2024 Refill [facility] [address] [place] [address] Radha Jamison DO Chronic bilateral low back pain, unspecified whether sciatica present 05/16/2024 Refill [facility] [address] [place] [address] Radha Jamison DO Chronic bilateral low back pain, unspecified whether sciatica present 05/10/2024 Telephone [facility] [address] [place] [address] Ginna Stephen, JOANN Appointment Request 05/09/2024 Travel 05/08/2024 Telephone [facility] [address] [place] [address] Radha Jamison, Medication Question 05/07/2024 Telephone [facility] [address] [place] [address] Radha Jamison DO Med Refill 05/07/2024 Refill [facility] [address] [place] [address] Radha Jamison DO 05/06/2024 Refill [facility] [address] [place] [address] Radha Jamison, Chronic bilateral low back pain, unspecified whether sciatica present 04/30/2024 Refill [facility] [place] [address] Radha Jamison DO Chronic bilateral low back pain, unspecified whether sciatica present 04/29/2024 Refill [facility] [place] [address] Radha Jamison DO 04/26/2024 Population Health Risk Score [facility] () Department [address] [place] [phone] Provider, Population Health Generic 04/23/2024 Telephone [facility] [place] [address] Radha Jamison DO FYI 04/19/2024 Refill [facility] [place] [address] Radha Jamison DO Chronic bilateral low back pain, unspecified whether sciatica present 04/17/2024 9:30 AM EST Clinical Support [facility] [place] [address] Acacia Chakraborty, explosive ordnance manager bilateral low back pain, unspecified whether sciatica present (Primary Dx) 04/17/2024 Telephone [facility] [place] [address] Acacia Chakraborty RN Needs PT1 04/17/2024 Travel 04/10/2024 Refill [facility] [address] [place] [address] Radha Jamison DO Chronic bilateral low back pain, unspecified whether sciatica present 04/05/2024 Refill [facility] [address] [place] [address] Radha Jamison DO 04/05/2024 Telephone [facility] [address] [place] [address] Nelia Sullivan, PharmD Prior Authorization (Ozempic ) 04/04/2024 Orders Only GENERIC EXTERNAL DATA DEPARTMENT Provider, Generic External Data 04/03/2024 10:30 AM EST Clinical Support [facility] [address] [place] [address] Acacia Chakraborty RN Chronic bilateral low back pain, unspecified whether sciatica present (Primary Dx) 04/03/2024 Refill [facility] [address] [place] [address] Radha Jamison DO Hypertension, unspecified type 04/03/2024 Refill [facility] [address] [place] [address] Acacia Chakraborty RN Chronic bilateral low back pain, unspecified whether sciatica present 04/03/2024 Travel 04/03/2024 Refill [facility] [address] [place] [address] Nelia Sullivan, PharmD 03/26/2024 Refill [facility] [address] [place] [address] Paramjit Arias MD Chronic bilateral low back pain, unspecified whether sciatica present 03/26/2024 Telephone [facility] [address] [place] [address] Radha Jamison DO Medication Question 03/26/2024 Refill [facility] [address] [place] [address] Radha Jamison DO Chronic bilateral low back pain, unspecified whether sciatica present 03/21/2024 Refill [facility] [address] [facility] [place] [address] Radha Jamison DO Other chronic pain; Mood disorder (CMS/HCC) 03/19/2024 10:00 AM EST Office Visit [facility] [address] [facility] [place] [address] Anna Jenkins MD Left lower quadrant abdominal pain (Primary Dx) 03/19/2024 9:00 AM EST Clinical Support [facility] [address] [facility] [place] [address] Acacia Chakraborty RN Chronic bilateral low back pain, unspecified whether sciatica present (Primary Dx) 03/19/2024 Telephone [facility] [address] [facility] [place] [address] Radha Jamison DO [facility] ED expect 03/19/2024 Refill [facility] [address] [place] [address] Radha Jamison DO Chronic bilateral low back pain, unspecified whether sciatica present 03/19/2024 Refill [facility] [address] [facility] [place] [address] Acacia Chakraborty RN Chronic bilateral low back pain, unspecified whether sciatica present 03/19/2024 Travel from Last 3 Months Immunizations Name [...] Description 06/14/2024 10:00 AM EDT Medication Management [facility] [address] [place] [address] Nelia Sullivan, PharmD [address] [place] [address] 06/18/2024 11:45 AM EDT Office Visit [facility] [address] [place], [place] [phone] Radha Jamison DO [address] [place], [place] [phone] Health Maintenance Due Date Last Done Comments [...] 05/14/2024 05/15/2023, 07/15, 10/01/2021, Additional history exists SDOH Screening 07/30/2024 07/31/2023 Diabetes: Hemoglobin A1C [...] Nelia Sullivan, PharmD Smoking cessation General No Felice Sullivanyssa, PharmD Patient will adhere to medication regimen General No Laurie Nelia, PharmD Hemoglobin A1c < 7 Result Component 10.3(05/25/19 12:32 PM EDT) No Dellogono, Abdias, PharmD Record your blood sugar as directed Result Component No Nelia Sullivan PharmD Note: Use CGM, ensuring sensor is scanned at least once every 8 hours to capture 24H data. Check BG manually, as directed. Procedures Procedure Name Priority Date/Time Associated Diagnosis Comments XR ANKLE 3+ VIEWS LEFT Routine 06/07/2024 8:32 PM EDT US VENOUS DUPLEX LE LT Routine 06/07/2024 7:17 PM EDT HOLD GREEN GEL Routine 06/07/2024 6:38 PM EDT CBC WITH AUTO DIFFERENTIAL Routine 06/07/2024 6:38 PM EDT B TYPE NATRIURETIC PEPTIDE (BNP) Routine 06/07/2024 6:38 PM EDT MAGNESIUM Routine 06/07/2024 6:38 PM EDT COMPREHENSIVE METABOLIC PANEL Routine 06/07/2024 6:38 PM EDT VASC US LOWER EXTREMITY ARTERIAL DUPLEX BILATERAL Routine 05/29/2024 10:23 AM EDT POCT GLYCATED HEMOGLOBIN, TOTAL Routine 05/24/2024 12:32 [...] low back pain, unspecified whether sciatica present LIPID PANEL, STANDARD Routine 05/15/2023 8:21 [...] Recently Relevant to Health Maintenance Results * XR Ankle 3+ Views Left (06/07/2024 8:32 PM EDT) Anatomical Region Laterality Modality Lower Extremities, Ankle Left Radiogr aphic Imaging 06/07/2024 8:32 PM EDT Narrative 06/07/2024 8:34 PM EDT ? [facility] ?[address] ?[place] [address] ?XRay Report ? Signed ? Patient: Murray Binu,Rocío ?MR#: [id number] ?? 087 ? : 1960 ?Acct:[id number] ? Age/Sex: 63 / F ?ADM Date: 06/07/24 ? Loc: HO.ED ? Attending Dr: ? Ordering Physician: Noe Younger MD ?? Date of Service: 06/07/24 ?? Procedure(s): XR ankle LT min 3V ?? Accession Number(s): [id number] ? cc: Radha Jamison DO; Noe Younger MD ? CLINICAL HISTORY: pain and swelling ? 3 view left ankle ? Comparison: None ? Findings: ?? No acute fracture. No dislocation. Ankle mortise is intact. ?? No significant degenerative changes. No erosions. ?? Calcaneal enthesophytes. ?? No ankle effusion. ? IMPRESSION: ?? 1. No acute findings. ? This document has been electronically signed by: Janette Dasilva MD on ?? 06/07/2024 20:32:40 ? Dictated By: ?Janette Dasilva MD ? Signed By: ?<Electronically signed by Janette Dasilva MD in OV> ? 06/07/242033 ? DD/ 31 ? TD/TT: 06/07/242031 ? Senior Physician: ? Procedure Note Shefali, Image - 06/07/[address] [address] XRay Report Signed Patient: Rocío HallmanMR#: [id number] 087 : 1960cct:[id number] Age/Sex: 63 / FADM Date: 06/07/24 Loc: HO.ED Attending Dr: Ordering Physician: Noe Younger MD Date of Service: 06/07/24 Procedure(s): XR ankle LT min 3V Accession Number(s): [id number] cc: Radha Jamison DO; Noe Younger MD CLINICAL HISTORY: pain and swelling 3 view left ankle Comparison: None Findings: No acute fracture. No dislocation. Ankle mortise is intact. No significant degenerative changes. No erosions. Calcaneal enthesophytes. No ankle effusion. IMPRESSION: 1. No acute findings. This document has been electronically signed by: Janette Dasilva MD on 06/07/2024 20:32:40 Dictated By: Janette Dasilva MD Signed By: <Electronically signed by Janette Dasilva MD in OV> 06/07/242033 DD/ 31 TD/TT: 06/07/242031 Senior Physician: [facility] External Provider IMG XR PROCEDURES Edited Result - Final * US VENOUS DUPLEX LE LT (06/07/2024 7:17 PM EDT) Anatomical Region Laterality Modality Abdomen Ultrasound 06/07/2024 7:17 PM EDT Narrative 06/07/2024 7:19 PM EDT ? [facility] ?[address] ?[place] [address] ? Ultrasound Report ? Signed ? Patient: Rocío Hallman ?MR#: [id number] ?? 087 ? : 1960 ?Acct:[id number] ? Age/Sex: 63 / F ?ADM Date: 06/07/24 ? Loc: HO.ED ? Attending Dr: ? Ordering Physician: Yohana Rey ?? Date of Service: 06/07/24 ?? Procedure(s): US venous duplex LE LT ?? Accession Number(s): [id number] ? cc: Radha Jamison DO; Yohana Rey ? CLINICAL HISTORY: swelling pain --- Additional Notes or Special Instructions: hx DVTs ? Venous duplex ultrasound left lower extremity ? Comparison: None ? Findings: ?? The visualized deep veins are fully compressible with normal Doppler color ?? flow and spectral tracings. ?? No popliteal cyst. ?? 1.6 cm left inguinal lymph node. ? IMPRESSION: ?? 1. Negative for left lower extremity deep vein thrombosis. ? This document has been electronically signed by: Janette Dasilva MD on ?? 06/07/2024 19:17:44 ? Dictated By: ?Janette Dasilva MD ? Signed By: ?<Electronically signed by Janette Dasilva MD in OV> ? 06/07/241917 ? DD/ 16 ? TD/TT: 06/07/241916 ? Senior Physician: ? Procedure Note Dongrantter, Image - 06/07/[address] [address] Ultrasound Report Signed Patient: Rocío HallmanMR#: [id number] 087 : 1960cct:[id number] Age/Sex: 63 / FADM Date: 06/07/24 Loc: HO.ED Attending Dr: Ordering Physician: Yohana Rey Date of Service: 06/07/24 Procedure(s): US venous duplex LE LT Accession Number(s): [id number] cc: Radha Jamison DO; Yohana Rey CLINICAL HISTORY: swelling pain --- Additional Notes or SpecialInstructions: hx DVTs Venous duplex ultrasound left lower extremity Comparison: None Findings: The visualized deep veins are fully compressible with normal Doppler color flow and spectral tracings. No popliteal cyst. 1.6 cm left inguinal lymph node. IMPRESSION: 1. Negative for left lower extremity deep vein thrombosis. This document has been electronically signed by: Janette Dasilva MD on 06/07/2024 19:17:44 Dictated By: Janette Dasilva MD Signed By: <Electronically signed by Janette Dasilva MD in OV> 06/07/241917 DD/ 16 TD/TT: 06/07/241916 Senior Physician: [facility] External Provider IMG US PROCEDURES Edited Result - Final * Hold Green Gel (06/07/2024 6:38 PM EDT) Hold Green Gel See Note [facility] Comment:Specimen held untest ed for 24 hours; Call to requestChemistry testing. 06/07/2024 6:38 PM EDT 06/07/2024 6:42 PM EDT Generic External Data Provider HISTORICAL/NON OR DERABLE LABS Final Result Performing Organization Address [facility]/State/ZIP Co de Phone Number [facility] [address] [place], [place] [phone] * (ABNORMAL) CBC auto differential (06/07/2024 6:38 PM EDT) White Blood Count 6.2 4.8 - 10.8 X10*3/uL [facility] Red Blood Count 3.51(L) 4.20 - 5.50 X10*6/uL [facility] Hemoglobin 10.4(L) 12.0 - 16.0 g/dl [facility] Hematocrit 31.7(L) 37.0 - 47.0 % [facility] Mean Corpuscular Volume 90.3 80.0 - 98.0 fL [facility] Mean Corpuscular Hemoglobin 29.6 27.0 - 33.0 pg [facility] Mean Corpuscular HGB Conc 32.8 31.0 - 35.0 g/dl [facility] Red Cell Distribution Width 14.3 11.0 - 16.0 % [facility] Platelet Count 321 160 - 400 X10*3/uL [facility] Mean Platelet Volume 9.1(L) 9.4 - 12.3 fL [facility] Neutrophils Percent Auto 66.4 45 - 73 % [facility] Imm Gran Pct Auto 0.3 0.0 - 0.4 % [facility] Lymphocytes Percent Auto 23.9 20 - 40 % [facility] Monocytes Percent Auto 6.5 2 - 11 % [facility] Eosinophils Percent Auto 2.4 0 - 4 % [facility] Basophils Percent Auto 0.5 0 - 2 % [facility] NRBC Pct Auto 0.0 0.0 - 0.2 /100WBC [facility] Neutrophils Absolute Auto 4.1 2.0 - 8.3 x10*3/uL [facility] Imm Gran Abs Auto 0.02 0.00 - 0.03 X10*3/uL [facility] Lymphocytes Absolute Auto 1.5 1.2 - 4.9 X10*3/uL [facility] Monocytes Absolute Auto 0.4 0.1 - 1.2 X10*3/uL [facility] Eosinophils Absolute Auto 0.2 0.0 - 0.4 X10*3/uL [facility] Basophils Absolute Auto 0.0 0.0 - 0.2 X10*3/uL [facility] NRBC Abs Auto 0.000 0.0 - 0.012 X10*3/uL [facility] 06/07/2024 6:38 PM EDT 06/07/2024 6:41 PM EDT us Generic External Data Provider LAB BLOOD ORDERAB LES Final Result Performing Organization Address [facility] Co de Phone Number [facility] [address] [place] [phone] * B Type Natriuretic Peptide (BNP) (06/07/2024 6:38 PM EDT) B Type Natriuretic Peptide 75 <100 pg/mL [facility] 06/07/2024 6:38 PM EDT 06/07/2024 6:41 PM EDT us Generic External Data Provider LAB BLOOD ORDERAB LES Final Result Performing Organization Address [facility] Co de Phone Number [facility] [address] [place] [phone] * Magnesium (06/07/2024 6:38 PM EDT) Magnesium 2.1 1.6 - 2.6 mg/dL [facility] 06/07/2024 6:38 PM EDT 06/07/2024 6:41 PM EDT us Generic External Data Provider LAB BLOOD ORDERAB LES Final Result Performing Organization Address [facility] Co de Phone Number [facility] [address] [place] [phone] * (ABNORMAL) Comprehensive Metabolic Panel (06/07/2024 6:38 PM EDT) Sodium 140 135 - 145 mmol/L [facility] Potassium 4.4 3.3 - 5.1 mmol/L [facility] Chloride 107 96 - 108 mmol/L [facility] Carbon Dioxide 27 22 - 29 mmol/L [facility] Anion Gap 10(L) 12 - 20 [facility] Urea Nitrogen (BUN) 18(H) 9 - 16 mg/dL [facility] Creatinine, Serum 1.09 0.5 - 1.4 mg/dL [facility] Creatinine Clr Calc Pharmacy 48.1 [facility] Comment:Provided height and weight: 165.1 cm,68 kg.eGFR (calculated from the MDRD study equation) and eCrCl(calculated from the Cockcroft-Gault equation) are based ondifferent parameters and may not yield comparable results.If eCrCl result is absurd, please check patient'sheight/weight. Estimated Glomerular Filt Rate 51 [facility] Comment:Chronic Kidney Disea se: Estimated GFR < 60 mL/min/1.25f6Vszyvs Kidney Disease: Estimated GFR < 15 mL/min/1.73m2 Glucose 210(H) 60 - 115 mg/dL [facility] Calcium 9.1 8.4 - 10.2 mg/dL [facility] Bilirubin, Total 0.2 0.0 - 1.0 mg/dL [facility] Aspartate Amino Transferase 17 5 - 31 U/L [facility] Alanine Aminotransferase 9 0 - 31 U/L [facility] Total Protein 6.4(L) 6.5 - 8.0 g/dL [facility] Albumin Level 3.5 3.5 - 5.0 g/dL [facility] Alkaline Phosphatase 87 39 - 117 U/L [facility] 06/07/2024 6:38 PM EDT 06/07/2024 6:41 PM EDT us Generic External Data Provider LAB BLOOD ORDERAB LES Final Result Performing Organization Address [facility]/State/ZIP Co de Phone Number [facility] [address] [place] [phone] * VASC Lower Extremity Arterial Duplex Bilateral (05/29/2024 10:23 AM EDT) 05/29/2024 10:2 3 AM EDT Narrative [facility] - 05/29/2024 3:57 PM EDT ? [facility] ?[address] ?[place] [address] ? Ultrasound Report ? Signed ? Patient: Rocío Hallman ?MR#: [id number] ?? 087 ? : 1960 ?Acct:[id number] ? Age/Sex: 63 / F ?ADM Date: 05/29/24 ? Loc: HO.US ? Attending Dr: Caleb Aragon MD ? Ordering Physician: Caleb Aragon MD ?? Date of Service: 05/29/24 ?? Procedure(s): US arterial duplex LE BI ?? Accession Number(s): [id number] ? cc: Radha Jamison DO; Caleb Aragon MD ? EXAMINATION: ?? NONINVASIVE ASSESSMENT OF THE BILATERAL LOWER EXTREMITIES WITH ARTERIAL ?? DUPLEX ). ? CLINICAL INFORMATION: ?? Peripheral vascular disease. Hypertension. Hyperlipidemia. Diabetes. ?? Status post left femoropopliteal bypass. ? TECHNIQUE: ?? Duplex Doppler techniques with waveform analysis and measurement of ?? velocities in the bilateral common femoral, profunda femoris, ?? superficial femoral, popliteal and tibial arteries were performed. ??. ?? The study was performed only at rest. ? COMPARISON: October 18, 2022 demonstrated chronic occluded right ?? superficial femoral artery and left superficial femoral artery. Patent ?? femoral bypass graft ? FINDINGS: ? DIRECT DUPLEX DOPPLER FINDINGS: ? RIGHT LEG: ?? Common femoral artery: 307 cm/s, phasicity: Monophasic. ?? Profunda femoris artery: 260 cm/s, phasicity: Monophasic. ?? Superficial femoral artery (proximal): 21 cm/s, phasicity: Monophasic. ?? Superficial femoral artery (mid): No color Doppler flow. ?? Superficial femoral artery (distal): 29 cm/s, phasicity: Monophasic. ?? Popliteal artery: 91 cm/s, phasicity: Monophasic. ?? Posterior tibial artery: 21 cm/s, phasicity: Monophasic. ?? Peroneal artery: 17 cm/s, phasicity: Monophasic. ?? Anterior tibial artery: 9 cm/s, phasicity: Monophasic. ?? Dorsalis pedis artery: 16 cm/s, phasicity:Monophasic. ? LEFT LEG: ?? Common femoral artery: 152 cm/s, phasicity: Biphasic. ?? Profunda femoris artery: 161 cm/s, phasicity: Monophasic. ?? Superficial femoral artery (proximal): No color Doppler flow . ?? Superficial femoral artery (mid): No color Doppler flow. Superficial ?? femoral artery (distal): No color Doppler flow. Popliteal artery: 151 ?? cm/s, phasicity: Biphasic. ?? Posterior tibial artery: 7 cm/s, phasicity: Monophasic. ?? Peroneal artery: 38 cm/s, phasicity: Biphasic. ?? Anterior tibial artery: 21 cm/s, phasicity: Monophasic. ?? Dorsalis pedis artery: 22 cm/s, phasicity: Monophasic. ? Left femoral popliteal bypass is patent with inflow peak systolic ?? velocity 195 cm/s, 275 cm/s in the proximal segment and at the ?? anastomosis 63 cm/s. ? US/ arterial duplex LE BI ?? IMPRESSION: ? Right leg: Occluded right superficial femoral artery. Severe inflow ?? disease in the interrogated vessels. ? Left leg: Occluded superficial femoral artery. Severe inflow disease in ?? the interrogated vessels. Patent left femoral-popliteal bypass. ? Electronically signed by: ??Sam Early MD ??05/29/2024 03:55 PM ?? EDT RP ? Dictated By: ?Sam Rhodes MD ? Signed By: ?<Electronically signed by Sam Tomlinson MD in OV> ? 05/29/24 1555 ? DD/ 1023 ? TD/TT: 05/29/24 1123 ? Senior Physician: ? Procedure Note Shefali, Image - 05/29/[address] [address] Ultrasound Report Signed Patient: Rocío HallmanMR#: [id number] 087 : 1960cct:[id number] Age/Sex: 63 / FADM Date: 05/29/24 Loc: . Attending Dr: Caleb Aragon MD Ordering Physician: Caleb Aragon MD Date of Service: 05/29/24 Procedure(s): US arterial duplex LE BI Accession Number(s): [id number] cc: Radha Jamison DO; Caleb Aragon MD EXAMINATION: NONINVASIVE ASSESSMENT OF THE BILATERAL LOWER EXTREMITIES WITH ARTERIAL DUPLEX ). CLINICAL INFORMATION: Peripheral vascular disease. Hypertension. Hyperlipidemia. Diabetes. Status post left femoropopliteal bypass. TECHNIQUE: Duplex Doppler techniques with waveform analysis and measurement of velocities in the bilateral common femoral, profunda femoris, superficial femoral, popliteal and tibial arteries were performed. . The study was performed only at rest. COMPARISON: October 18, 2022 demonstrated chronic occluded right superficial femoral artery and left superficial femoral artery. Patent femoral bypass graft FINDINGS: DIRECT DUPLEX DOPPLER FINDINGS: RIGHT LEG: Common femoral artery: 307 cm/s, phasicity: Monophasic. Profunda femoris artery: 260 cm/s, phasicity: Monophasic. Superficial femoral artery (proximal): 21 cm/s, phasicity: Monophasic. Superficial femoral artery (mid): No color Doppler flow. Superficial femoral artery (distal): 29 cm/s, phasicity: Monophasic. Popliteal artery: 91 cm/s, phasicity: Monophasic. Posterior tibial artery: 21 cm/s, phasicity: Monophasic. Peroneal artery: 17 cm/s, phasicity: Monophasic. Anterior tibial artery: 9 cm/s, phasicity: Monophasic. Dorsalis pedis artery: 16 cm/s, phasicity:Monophasic. LEFT LEG: Common femoral artery: 152 cm/s, phasicity: Biphasic. Profunda femoris artery: 161 cm/s, phasicity: Monophasic. Superficial femoral artery (proximal): No color Doppler flow . Superficial femoral artery (mid): No color Doppler flow. Superficial femoral artery (distal): No color Doppler flow. Popliteal artery: 151 cm/s, phasicity: Biphasic. Posterior tibial artery: 7 cm/s, phasicity: Monophasic. Peroneal artery: 38 cm/s, phasicity: Biphasic. Anterior tibial artery: 21 cm/s, phasicity: Monophasic. Dorsalis pedis artery: 22 cm/s, phasicity: Monophasic. Left femoral popliteal bypass is patent with inflow peak systolic velocity 195 cm/s, 275 cm/s in the proximal segment and at the anastomosis 63 cm/s. US/US arterial duplex LE BI IMPRESSION: Right leg: Occluded right superficial femoral artery. Severe inflow disease in the interrogated vessels. Left leg: Occluded superficial femoral artery. Severe inflow disease in the interrogated vessels. Patent left femoral-popliteal bypass. Electronically signed by: Sam Early MD 05/29/2024 03:55 PM EDT RP Dictated By: Sam Rhodes MD Signed By: <Electronically signed by Sam Tomlinson MDin OV> 05/29/24 1555 DD/ 1023 TD/TT: 05/29/24 1123 Senior Physician: [facility] External Provider CV VASC ULAR PROCEDURES Final Result [facility] [address] [place] [phone] * (ABNORMAL) POCT HGB A1C (05/24/2024 12:32 PM EDT) [facility] Hemoglobin A1C 10.3(A) 4.0 - 6.0 % QC Media Lot # [id number] Lot# Expiration Date ,888,207 Blood 05/24/2024 12:3 2 PM EDT Radha Jamison DO POINT OF CARE TEST ENTER/BHARGAVI T ORDERABLES Final Result * (ABNORMAL) POCT Glucose (05/24/2024 12:32 PM EDT) [facility] Glucose Blood, POC 412(A) 60 - 200 mg/dL QC Media Lot # [id number] Lot# Expiration Date ,025 Blood Capillary blood specimen / Unknown 05/24/2024 12:32 PM EDT us Radha Jamison DO POINT OF CARE TEST ENTER/BHARGAVI T ORDERABLES Final Result * XR Chest 1 View (05/18/2024 9:48 PM EDT) Anatomical Region Laterality Modality Chest Radiographic Samantha ging 05/18/2024 9:48 PM EDT Narrative 05/18/2024 9:50 PM EDT ? [facility] ?[address] ?[place] [address] ?XRay Report ? Signed ? Patient: Rocío Hallman ?MR#: [id number] ?? [id number] ? : 1960 ?Acct:[id number] ? Age/Sex: 63 / F ?ADM Date: 05/18/24 ? Loc: HO.ED ? Attending Dr: ? Ordering Physician: Antonio Braun MD ?? Date of Service: 05/18/24 ?? Procedure(s): XR chest 1V ?? Accession Number(s): [id number] ? cc: Radha Jamison DO; Antonio Braun MD ? CLINICAL HISTORY: cough ? [...] by Janette Dasilva MD in OV> ? 05/18/242148 ? DD/ 47 ? TD/TT: 05/18/242147 ? Senior Physician: ? Procedure Note Veronica Meehan - 05/18/[address] [place] [address] XRay Report Signed Patient: Rocío HallmanMR#: [id number] : 1960cct:[id number] Age/Sex: 63 / FADM Date: 05/18/24 Loc: HO.ED Attending Dr: Ordering Physician: Antonio Braun MD Date of Service: 05/18/24 Procedure(s): XR chest 1V Accession Number(s): [id number] cc: Radha Jamison DO; Antonio Braun MD [...] in OV> 05/18/242148 DD/ 47 TD/TT: 05/18/242147 Senior Physician: [facility] External Provider IMG XR PROCEDURES Edited Result - Final * POCT GUERO-14 Urine Drug Screen (04/17/2024 9:32 AM EST) Only the most recent of3 resultswithin the time period is included. Oxycodone Screen, Urine Positive Urine Urine specimen obtained by clean catch procedure / Unknown 04/17/2024 9:32 AM EST Acacia Perera RN - 04/17/2024 9:32 AM EST UTOX cup Lot#[id number] Exp. 10/02/25 Internal Pass Control Radha Jamison DO POINT OF CARE TEST ENTER/BHARGAVI T ORDERABLES Final Result * Vitamin B12 (04/04/2024 10:55 AM EST) Vitamin B12 387 200 - 900 pg/mL [facility] Comment:NORMAL 200-900 PG/ML INDETERMINATE 160-199 PG/ML DEFICIENT < 160 PG/ML 04/04/2024 10:5 5 AM EST 04/04/2024 1:12 PM EST us Radha Jamison DO LAB BLOOD ORDERABLES Final R esult Performing Organization Address City/[facility]/ZIP Co de Phone Number [facility] [address] [place] [phone] * (ABNORMAL) Basic Metabolic Panel (04/04/2024 10:55 AM EST) Pathologist [facility] Sodium 140 135 - 145 mmol/L [facility] Potassium 4.4 3.3 - 5.1 mmol/L [facility] Chloride 107 96 - 108 mmol/L [facility] Carbon Dioxide 27 22 - 29 mmol/L [facility] Anion Gap 10(L) 12 - 20 [facility] Urea Nitrogen (BUN) 22(H) 9 - 16 mg/dL [facility] Creatinine, Serum 0.88 0.5 - 1.4 mg/dL [facility] Estimated Glomerular Filt Rate >60 [facility] Comment:Chronic Kidney Disea se: Estimated GFR < 60 mL/min/1.79e9Eezhjw Kidney Disease: Estimated GFR < 15 mL/min/1.73m2 Glucose 213(H) 60 - 115 mg/dL [facility] Calcium 9.0 8.4 - 10.2 mg/dL [facility] 04/04/2024 10:5 5 AM EST 04/04/2024 1:12 PM EST us Generic External Data Provider LAB BLOOD ORDERAB LES Final Result Performing Organization Address [facility]/ZIP Co de Phone Number [facility] [address] [place] [phone] * (ABNORMAL) Lipid Panel, Standard (05/15/2023 8:21 AM EDT) Triglycerides 136 <150 mg/dL [facility] Comment:Desirable Triglyceri de: less than 150 mg/dLBorderline High Triglyceride 150-199 mg/dLHigh Triglyceride: 200-499 mg/dLVery High Triglyceride: greater than or equal to 5OO mg/dL Cholesterol 240(H) <200 mg/dL [facility] Comment:Desirable Cholestero l: less than 200 mg/dLBorderline High Cholesterol: 200-239 mg/dLHigh Cholesterol: greater than 239 mg/dL LDL Cholesterol Calculated 165(H) <100 mg/dL [facility] Comment:Desirable LDL: less than 100 mg/dLNear Optimal/Above Optimal LDL: 110- 129 mg/dLBorderline High LDL: 130-159 mg/dLHigh LDL: 160-189 mg/dLVery High LDL: greater than or equal to 190 mg/dL HDL Cholesterol 48 >40 mg/dL [facility] Comment:Desirable HDL: great er than 40 mg/dL Note: This HDL assay may give artificially low results in patients with liver disease. Blood Venous blood specimen / Unknown 05/15/2023 8:21 AM EDT 05/15/2023 8:21 AM EDT us Radha Jamison DO LAB BLOOD ORDERABLES Final R esult [facility] [address] [place] [address] [phone] * (ABNORMAL) Albumin, Random Urine W/Creatinine (05/15/2023 8:20 AM EDT) Creatinine, Urine 105.69 mg/dL [facility] Microalbumin Urine 1,418.0 mg/L [facility] Microalbum Creatinine Ratio Ur 1,341.6(H ) <30 ug/mg cr [facility] Comment:Albumin/Creatinine R atio Reference Ranges: Normal: < 30 ug/mg creatinine Microalbuminuria: 30 - 300 ug/mg creatinineClinical Albuminuria: > 300 ug/mg creatinine Urine (Urine, Random) 05/15/2023 8:20 AM EDT 05/15/2023 8:31 AM EDT Radha Shaheen DO LAB URINE ORDERABLES Final R esult [facility] [address] [place] [phone] [phone] * Hepatitis C Antibody with Reflex to HCV RNA,PCR w/Reflex to Genotype, LiPA (08/08/2022 10:44 AM EDT) Hepatitis C Antibody NON-REACT ROMERO NON-REACT ROMERO [facility] [place] [facility] Comment: HCV antibody was non-reactive. There is no laboratory evidence of HCV infection. In most cases, no further action is required. However, if recent HCV exposure is suspected, a test for HCV RNA (test code 54253) is suggested. For additional information, please refer to http://education.[employer]/faq/EXW246 (This link is being provided for informational/ educational purposes only.) 08/08/2022 10:4 4 AM EDT 08/08/2022 10:45 AM EDT Narrative [facility] - 08/09/2022 7:27 PM EDT FASTING:YES COLLECTION KIT GIVEN TO PATIENT. PATIENT ADVISED TO RETURN. FASTING: YES Radha Shaheen [facility] LAB BLOOD ORDERABLES Final [facility] Performing Organization Address City/[facility] Co de Phone Number [facility] [address] [facility], [place] [address] [facility] [place] [facility] [address] [place] [address] * HIV-1/2 Antigen and Antibodies, Fourth Generation, with Reflexes (08/08/2022 10:44 AM EDT) Pathologist [facility] HIV Antigen/Antibody, 4th Generation NON-REAC TIVE NON-REAC TIVE [facility] [place] [facility] Comment: HIV-1 antigen and HIV-1/HIV-2 antibodies were [...] ?? For additional information please refer to http://education.[employer]/faq/DGC953 (This link is being provided for informational/ [...] BLOOD ORDERABLES Final R esult [facility] [address], [place] [address] [facility] [address] [place] [address] * Mammography Report 1 (10/06/2021 1:35 PM [...] [address] [place] [address] [place] [facility] * Guarantor: Rocío Hallman Account Type Relation to Patient Date of Phone Billing Address Dental Self [address] [place] [address] [facility] * Guarantor: Rocío Hallman Account Type Relation to Patient Date of Phone Billing Address Personal/Family Self [address] [place] [address] * Guarantor: Rocío Hallman Account Type Relation to Patient Date of Phone Billing Address Personal/Family Self [address] [place] [address] Care Teams Bessemer Converter Operator Relationship Specialty Start Date End Date Radha Jamison DO [address] [place] [address] PCP - General Family Medicine 01/26/12 Nelia Sullivan, KeithD [address] [place] [address] Pharmacist Internal Medicine 08/31/23 Laurel Monterroso Major Sales AssociateCarbon Cutter 10/27/22 Saige Aguilar 09/26/23
--- OUTSIDE RECORDS SUMMARY | 2024-06-13 12:06 | XMS_ITS | Encounter Summary ---
Author Organization [employer] Address [address] [facility] 7t [place] [address] Care Team Providers Care Zinc Plating Machine Operator Name Role Phone Radha Jamison DO Primary Care Provider [phone] Abdias Murillo PharmD Unavailable Unavail able Nelia Sullivan PharmD Unavailable [phone] Reason for Visit * Reason Comments Med Refill Encounter Details Date Type Department Care Team (Late st Contact Info) Description 08/30/2023 Refill [facility] [address] [place] [address] Radha Jamison DO [address] [place] [address] Chronic bilateral low back pain, unspecified whether [...] AM EDT Medication Management [facility] [address] [place] [phone] Puia, Nelia, PharmD [address] [place] [address] 06/18/2024 11:45 AM EDT Office Visit [facility] [address] [place] [address] [phone] Radha Jamison DO [address] [place] [phone] documented as of this encounter Goals Goal [...] documented as of this encounter Care Teams Zinc Plating Machine Operator Relationship Specialty Start Date End Date Radha Jamison DO [address] [place] [address] PCP - General Family Medicine 01/26/12 Abdias Murillo PharmD [address] [place] [address] Pharmacist Internal Medicine 03/21/22 08/30/23 Nelia Sullivan PharmD [address] [place] [address] Pharmacist Internal Medicine 08/31/23 Laurel Monterroso Console OperatorIbm Mainframe Systems Programmer 10/27/22 Saige Aguilar 09/26/23 documented as of this encounter
--- OUTSIDE RECORDS SUMMARY | 2024-06-13 12:06 | XMS_ITS | Encounter Summary ---
Author Organization [employer] Address [address] [facility] 7t [place] [address] Care Team Providers Care Warehouse Puller Name Role Phone Radha Jamison DO Primary Care Provider [phone] Abdias Murillo PharmD Unavailable Unavail able Nelia Sullivan PharmD Unavailable Reason for Visit * Reason Onset Date Comments Med Refill 10/18/2022 Encounter Details Date Type Department Care Team (Late st Contact Info) Description 10/18/2022 Telephone [facility] [address] [place] [address] Radha Jamison DO [address] [place] [address] Med Refill Social History Tobacco Use Types [...] PCP needed re:controlled medication. Pt's hx with [facility] appts is as follows: 05/05: Pt short [...] team nurses. Any questions, contact pt at [phone] (Iraqi) * Telephone Encounter - Acacia Chakraborty RN [...] Description 06/14/2024 10:00 AM EDT Medication Management [facility] [place] [address] Nelia Sullivan PharmD [address] [facility] [address] 06/18/2024 11:45 AM EDT Office Visit [facility] [address] [facility] [place] [address] Radha Jamison DO [address] [facility] [place] [address] documented as of this encounter Goals Goal [...] as of this encounter Care Teams Warehouse Puller Relationship Specialty Start Date End Date Radha Jamison DO [facility] [place] [address] PCP - General Family Medicine 01/26/12 Abdias Murillo, PharmD [facility] [place] [address] Pharmacist Internal Medicine 03/21/22 08/30/23 Nelia Sullivan PharmD Preet [facility] [place] [address] Pharmacist Internal Medicine 08/31/23 Laurel Monterroso Packaging TechnicianAsphalt Patcher 10/27/22 Saige Aguilar 09/26/23 documented as of this encounter
--- OUTSIDE RECORDS SUMMARY | 2024-06-13 12:06 | XMS_ITS | Encounter Summary ---
Author Organization [employer] Address [address] [facility] 7t [place] [address] Care Team Providers Care Network Operations Lead Name Role Phone Radha Jamison DO Primary Care Provider [phone] Abdias Murillo PharmD Unavailable Unavail able Nelia Sullivan PharmD Unavailable [phone] Reason for Visit * Reason Onset Date Comments Durable Medical Equipment 09/08/2022 Encounter Details Date Type Department Care Team (Late st Contact Info) Description 09/08/2022 Telephone [facility] [address] [place] [address] Radha Jamison DO [address] [place] [address] Durable Medical Equipment Social History Tobacco Use [...] is not working. Please contact pt at [phone] documented in this encounter Plan of Treatment Upcoming Encounters Date Type Department Care Team (Late st Contact Info) Description 06/14/2024 10:00 AM EDT Medication Management [facility] [address] [place] [address] Nelia Sullivan PharmD [address] [place] [address] 06/18/2024 11:45 AM EDT Office Visit [facility] [address] [place] [address] Radha Jamison DO [address] [place] [address] documented as of this encounter Goals Goal [...] documented as of this encounter Care Teams Network Operations Lead Relationship Specialty Start Date End Date Radha Jamison DO [address] [place] [address] PCP - General Family Medicine 01/26/12 Abdias Murillo PharmD [address] [place] [address] Pharmacist Internal Medicine 03/21/22 08/30/23 Nelia Sullivan PharmD [address] [place] [phone] Pharmacist Internal Medicine 08/31/23 Laurel Monterroso Manufacturing Quality InspectorDevice Test Engineer 10/27/22 Saige Aguilar 09/26/23 documented as of this encounter
--- OUTSIDE RECORDS SUMMARY | 2024-06-13 12:06 | XMS_ITS | Encounter Summary ---
Author Organization [employer] Address [address] [facility] 7t [place] [address] Care Team Providers Care Fiction And Nonfiction Author Name Role Phone Radha Jamison DO Primary Care Provider [phone] Abdias Murillo PharmD Unavailable Unavail able Nelia Sullivan PharmD Unavailable [phone] Reason for Visit * Reason Comments Med Refill Encounter Details Date Type Department Care Team (Late st Contact Info) Description 08/01/2023 Refill [facility] [address] [place], [place] [phone] Radha Jamison DO [address] [place] [address] Chronic bilateral low back pain, unspecified whether [...] [facility] [address] [place] [address] Nelia Sullivan PharmD [address] [place] [address] 06/18/2024 11:45 AM EDT Office Visit [facility] [address] [place] [address] Radha Jamison DO [address] [place] [address] documented as of this encounter Goals Goal [...] documented as of this encounter Care Teams Fiction And Nonfiction Author Relationship Specialty Start Date End Date Radha Jamison DO [address] [place] [address] PCP - General Family Medicine 01/26/12 Abdias Murillo, PharmD [address] [place] [address] Pharmacist Internal Medicine 03/21/22 08/30/23 Nelia Sullivan PharmD [address] [place] [address] Pharmacist Internal Medicine 08/31/23 Laurel Monterroso Medical Laboratory Technical OfficerSiderographist 10/27/22 Saige Aguilar 09/26/23 documented as of this encounter
--- OUTSIDE RECORDS SUMMARY | 2024-06-13 12:06 | XMS_ITS | Encounter Summary ---
Author Organization [employer] Address [address] [facility] 7t [place] [address] Care Team Providers Care Port Traffic Manager Name Role Phone Radha Jamison DO Primary Care Provider [phone] Nelia Sullivan PharmD Unavailable [phone] Reason for Visit * Reason Comments Med Refill Encounter Details Date Type Department Care Team ([facility] Contact Info) Description 05/07/2024 Refill [facility] [address] [place], [place] [phone] Radha Jamison DO [address] [place] [address] Social History Tobacco Use Types Packs/Day Years [...] AM EDT Medication Management [facility] [address] [place] [address] PuiaFeliceNelia, PharmD [address] [place] [address] 06/18/2024 11:45 AM EDT Office Visit [facility] [address] [place] [address] Radha Jamison DO [address] [place] [address] documented as of this encounter Goals Goal [...] documented as of this encounter Care Teams Port Traffic Manager Relationship Specialty Start Date End Date Rahda Jamison DO [address] [place] [address] PCP - General Family Medicine 01/26/12 Nelia Sullivan PharmD [address] [place] [address] Pharmacist Internal Medicine 08/31/23 Laurel Monterroso Telephone Switchboard OperatorAirport Engineer 10/27/22 Saige Aguilar 09/26/23 documented as of this encounter
--- OUTSIDE RECORDS SUMMARY | 2024-06-13 12:06 | XMS_ITS | Encounter Summary ---
Author Organization [employer] Address [address] [facility] 7t [place] [address] Care Team Providers Care Full Stack Software Engineer Name Role Phone Radha Jamison DO Primary Care Provider [phone] Abdias Murillo PharmD Unavailable Unavail able Nelia Sullivan PharmD Unavailable Reason for Visit * Reason Onset Date Comments Med Refill 10/24/2022 Encounter Details Date Type Department Care Team (Late st Contact Info) Description 10/24/2022 Telephone [facility] [address] [place] [address] Radha Jamison DO [address] [place] [address] Med Refill Social History Tobacco Use Types [...] 06/14/2024 10:00 AM EDT Medication Management [facility] [address] [place] [address] Nelia Sullivan PharmD [address] [place] [address] 06/18/2024 11:45 AM EDT Office Visit [facility] [address] [place] [address] Radha Jamison DO [address] [place] [address] documented as of this encounter Goals Goal [...] documented as of this encounter Care Teams Full Stack Software Engineer Relationship Specialty Start Date End Date Radha Jamison DO [address] [place] [address] PCP - General Family Medicine 01/26/12 Abdias Murillo PharmAdrian [address] [place] [address] Pharmacist Internal Medicine 03/21/22 08/30/23 Nelia Sullivan PharmD [address] [place] [address] Pharmacist Internal Medicine 08/31/23 Laurel Monterroso Marble MasonVideo Poker Floorman 10/27/22 Saige Aguilar 09/26/23 documented as of this encounter
--- OUTSIDE RECORDS SUMMARY | 2024-06-13 12:06 | XMS_ITS | Encounter Summary ---
Author Organization [employer] Address [address] [facility] 7t [place] [address] Care Team Providers Care Cook Relief Name Role Phone ShaheenRadha Primary Care Provider [phone] Abdias Murillo PharmD Unavailable Unavail able Nelia Sullivan PharmD Unavailable [phone] Reason for Visit * Reason Onset Date Comments Dental Exam 08/24/2023 Encounter Details Date Type Department Care Team (Late st Contact Info) Description 08/24/2023 Telephone [facility] [address] [place] [address] Libby Siddiqui, DDS [address] [place] [address] Dental Exam Social History Tobacco Use Types [...] Description 06/14/2024 10:00 AM EDT Medication Management [facility] [address] [place] [address] Nelia Sullivan, PharmD [address] [place] [address] 06/18/2024 11:45 AM EDT Office Visit [facility] [address] [place] [address] Radha Jamison DO [address] [place] [address] documented as of this encounter Goals Goal [...] documented as of this encounter Care Teams Cook Relief Relationship Specialty Start Date End Date Radha Jamison DO [address] [place] [address] PCP - General Family Medicine 01/26/12 Abdias Murillo, PharmD [address] [place] [address] Pharmacist Internal Medicine 03/21/22 08/30/23 Nelia Sullivan, KeithD [address] [place] [address] Pharmacist Internal Medicine 08/31/23 Laurel Monterroso Market Basket MakerVideo Control Engineer 10/27/22 Saige Aguilar 09/26/23 documented as of this encounter
--- OUTSIDE RECORDS SUMMARY | 2024-06-13 12:06 | XMS_ITS | Encounter Summary ---
Author Organization [employer] [facility] Address 75 [facility] 7t [place] [address] Care Team Providers Care Head Greenskeeper Name Role Phone Radha Jamison DO Primary Care Provider DelAbdias hardy PharmD Unavailable Unavail able PuNelia cortes PharmD Unavailable Reason for Visit * Reason Comments Med Refill Encounter Details Date Type Department Care Team ([facility] Contact Info) Description 10/25/2022 Refill [facility] MEDICINE [address] [place] [address] Radha Jamison DO 230 [place] [address] Chronic bilateral low back pain, unspecified whether [...] 06/14/2024 10:00 AM EDT Medication Management [facility] MEDICINE [address] [place] [address] Puia, Nelia, PharmD [address] [place] [address] 06/18/2024 11:45 AM EDT Office Visit [facility] [address] [place] [address] Radha Jamison DO [address] [place] [address] documented as of this encounter Goals Goal [...] documented as of this encounter Care Teams Head Greenskeeper Relationship Specialty Start Date End Date Radha Jamison DO [facility] [place] [address] PCP - General Family Medicine 01/26/12 Abdias Murillo, Camron [facility] [place] [address] Pharmacist Internal Medicine 03/21/22 08/30/23 Nelia Sullivan PharmD [place] [address] Pharmacist Internal Medicine 08/31/23 Laurel Monterroso Clinical Data CoordinatorRespiratory Therapy Instructor 10/27/22 Saige Aguilar 09/26/23 documented as of this encounter
--- OUTSIDE RECORDS SUMMARY | 2024-06-13 12:06 | XMS_ITS | Encounter Summary ---
Author Organization [employer] Address 75 [facility] 7t [place] [address] Care Team Providers Care Corporate Travel Agent Name Role Phone Radha Jamison DO Primary Care Provider +1- [phone] Nelia Sullivan PharmD Unavailable Reason for Visit * Reason Onset Date Comments Appointment Request 06/11/2024 Encounter Details Date Type Department Care Team ([facility] st Contact Info) Description 06/11/2024 Telephone [facility]INE 230 [place], [place] [phone] Radha Jamison DO 230 [place], [place] [phone] Appointment Request Social History Tobacco Use Types [...] the past 12 months, has t he [employer], gas, oil or water [employer] threatened to shut off services in your [...] Telephone Encounter - Carli Myers RN - 06/12/2024 10:46 AM EDT Noted. Patient seen at [facility] on 06/07/24 for L leg pain and swelling of L ankle. Patient had an US which was negative for DVT and Xray was WNL of left ankle. Patient was discharged home with aircast and advised to elevate leg. TC placed to patient [phone] for status check however automated recording the number you havedialed has calling restrictions . RN unable to leave . TC placed to patient [phone] for status check. Patient reports the swelling has improved slightly. Patient reports she is still utilizingaircast and also taking tylenol PRN. Patient also reports having leg elevated with a pillow. Patient would like to see PCP sooner than 06/25/24 due to wanting to discuss pain medication. RN has moved visit to 06/18/24 for ED f/u and routine f/u. Patient agreed to new appointment date and time and is aware appointment on 06/25/24 is cancelled. Patient to f/u PRN. * Telephone Encounter - Geovanna Parviz Carreno - 06/11/2024 2:05 PM EDT Patient calling to report ED visit on : Date: 06/07/24 Hospital: [facility] Seen for: Swollen Symptomatic Yes *if yes message should go to Triage Patient advised will forward to team nurse for follow up documented in this encounter Plan of Treatment Upcoming Encounters Date Type Department Care Team (Late st Contact Info) Description 06/14/2024 10:00 AM EDT Medication Management [address] [address] Puia, Nelia, PharmD [address] [place] [address] 06/18/2024 11:45 AM EDT Office Visit [address] [address] Radha Jamison DO [address] [place] [address] documented as of this encounter Goals Goal [...] Result Component 10.3(05/25/19 12:32 PM EDT) No DelAbdias hardy, PharmD Record your blood [...] documented as of this encounter Care Teams Corporate Travel Agent Relationship Specialty Start Date End Date Radha Jamison DO 230 [place], [place] [phone] PCP - General Family Medicine 01/26/12 Nelia Sullivan PharmD 230 [place] [address] Pharmacist Internal Medicine 08/31/23 Laurel Monterroso Floral ArtistPhysical Therapist Clinic Director 10/27/22 Saige Aguilar 09/26/23 documented as of this encounter
--- OUTSIDE RECORDS SUMMARY | 2024-06-13 12:06 | XMS_ITS | Encounter Summary ---
Author Organization [employer] Address 75 [facility] 7t [place] [address] Care Team Providers Care Printed Circuit Boards Laminator Name Role Phone Radha Jamison DO Primary Care Provider +1- [phone] Nelia Sullivan PharmD Unavailable [phone] Reason for Visit * Reason Comments Med Refill Encounter Details Date Type Department Care Team ([facility] st Contact Info) Description 05/17/2024 Refill [facility] MEDICINE 230 [place], [place] [phone] Radha Jamison DO 230 [place] [address] Chronic bilateral low back pain, unspecified whether [...] the past 12 months, has t he [employer], gas, oil or water [employer] threatened to shut off services in your [...] 10:00 AM EDT Medication Management [facility] MEDICINE [address] [place] [address] Puia, Nelia, PharmD [address] [place] [address] 06/18/2024 11:45 AM EDT Office Visit [facility] MEDICINE [address] [place] [address] Radha Jamison DO 230 [place] [address] documented as of this encounter Goals Goal [...] documented as of this encounter Care Teams Printed Circuit Boards Laminator Relationship Specialty Start Date End Date Radha Jamison DO 230 [place] [address] PCP - General Family Medicine 01/26/12 Nelia Sullivan, PharmD 230 [place] [address] Pharmacist Internal Medicine 08/31/23 Laurel Monterroso Inspector And ClerkState Patrol Officer 10/27/22 Saige Aguilar 09/26/23 documented as of this encounter
--- OUTSIDE RECORDS SUMMARY | 2024-06-13 12:06 | XMS_ITS | Encounter Summary ---
Author Organization [employer] Address 75 [facility] 7t [place] [address] Care Team Providers Care Court Clerk Name Role Phone Radha Jamison DO Primary Care Provider +1- [phone] Abdias Murillo PharmD Unavailable Unavail able Nelia Sullivan PharmD Unavailable [phone] Reason for Visit * Reason Comments Med Refill Encounter Details Date Type Department Care Team (Late st Contact Info) Description 04/14/2023 Refill [facility] MEDICINE 230 [place], [place] [phone] Radha Jamison DO 230 [place], [place] [phone] Type 2 diabetes mellitus with hyperglycemia, with long-term current use of insulin ([facility]) Social History Tobacco Use Types Packs/Day Years [...] Description 06/14/2024 10:00 AM EDT Medication Management [facility] MEDICINE [address] [place] [address] Nelia Sullivan, PharmD [address] [place] [address] 06/18/2024 11:45 AM EDT Office Visit [facility] MED[facility]INE [address] [place] [address] Radha Jamison DO [address] [place] [address] documented as of this encounter Goals Goal Patient Goal Type Associated Problems Recent Progress Patient-Stated? Author Hemoglobin A1c < 7 Result Component 10.3( 12:32 PM EDT) No Abdias Murillo, PharmD documented as of this encounter Visit Diagnoses Diagnosis Type 2 diabetes mellitus with hyperglycemia, with long-term current use of insulin ([facility]) documented in this encounter Additional Health Concerns Assessment Noted Time PHQ-9 Depression Total Score: 4 11/09/19 23 11:27 AM EDT documented as of this encounter Care Teams Court Clerk Relationship Specialty Start Date End Date Radha Jamison DO [address] [place] [address] PCP - General Family Medicine 01/26/12 Abdias Murillo, KeithD 230 [facility] [place] [address] Pharmacist Internal Medicine 03/21/22 08/30/23 Nelia Sullivan, KeithD [address] [place] [address] Pharmacist Internal Medicine 08/31/23 Laurel Monterroso Erp Business AnalystGuzzler Builder 10/27/22 Saige Aguilar 09/26/23 documented as of this encounter
--- OUTSIDE RECORDS SUMMARY | 2024-06-13 12:06 | XMS_ITS | Encounter Summary ---
Author Organization [employer] Address 75 [facility] 7t [place] [address] Care Team Providers Care It Field Technician Name Role Phone Radha Jamison DO Primary Care Provider [phone]- [phone] Abdias Murillo PharmD Unavailable Unavail able Nelia Sullivan PharmD Unavailable Reason for Visit * Reason Comments Med Refill Encounter Details Date Type Department Care Team (Late st Contact Info) Description 06/06/2023 Refill [facility] 230 [place] [address] Radha Jamison DO 230 [place] [address] Chronic bilateral low back pain, unspecified whether [...] Description 06/14/2024 10:00 AM EDT Medication Management [facility] MEDICINE [address] [place] [address] Nelia Sullivan PharmD [address] [place] [address] 06/18/2024 11:45 AM EDT Office Visit [facility] MEDICINE [address] [place] [address] Radha Jamison DO [address] [place] [address] documented as of this encounter Goals Goal [...] documented as of this encounter Care Teams It Field Technician Relationship Specialty Start Date End Date Radha Jamison DO [address] [place] [phone] PCP - General Family Medicine 01/26/12 Abdias Murillo, PharmD 230 [place] [address] Pharmacist Internal Medicine 03/21/22 08/30/23 Nelia Sullivan, PharmD 230 [place] [address] Pharmacist Internal Medicine 08/31/23 Laurel Monterroso Resident EngineerDicer Operator 10/27/22 Saige Aguilar 09/26/23 documented as of this encounter
--- OUTSIDE RECORDS SUMMARY | 2024-06-13 12:06 | XMS_ITS | Encounter Summary ---
Author Organization [employer] Address 75 [facility] 7t [place] [address] Care Team Providers Care Uke Operator Name Role Phone Radha Jamison DO Primary Care Provider Abdias Murillo PharmD Unavailable Unavail able Nelia Sullivan PharmD Unavailable [phone] Encounter Details Date Type Department Care Team ([facility] st Contact Info) Description 10/10/2022 Telephone [facility] MEDICINE 230 [place] [address] Radha Jamison DO 230 [place] [address] Social History Tobacco Use Types Packs/Day Years [...] Miscellaneous Notes * Telephone Encounter - La Rosa - 10/10/2022 12:39 PM EDT Tc from [...] [facility] MED[facility]INE [address] [place] [address] Nelia Sullivan PharmD 230 [place] [address] 06/18/2024 11:45 AM EDT Office Visit [address] [address] Radha [place] [address] documented as of this encounter Goals Goal [...] documented as of this encounter Care Teams Uke Operator Relationship Specialty Start Date End Date Radha Jamison DO [address] [place] [address] PCP - General Family Medicine 01/26/12 Abdias Murillo, PharmD [address] [place] [address] Pharmacist Internal Medicine 03/21/22 08/30/23 Nelia Sullivan PharmD [address] [place] [address] Pharmacist Internal Medicine 08/31/23 Laurel Monterroso Station ChiefSound Cutter 10/27/22 Saige Aguilar 09/26/23 documented as of this encounter
--- OUTSIDE RECORDS SUMMARY | 2024-06-13 12:06 | XMS_ITS | Encounter Summary ---
Author Organization [employer] Address 75 [facility] 7t [place] [address] Care Team Providers Care Supervisor Floor Assembly Name Role Phone Radha Jamison DO Primary Care Provider [phone]- [phone] DelAbdias hardy PharmD Unavailable Unavail able Nelia Sullivan PharmD Unavailable Reason for Visit * Reason Comments Med Refill Encounter Details Date Type Department Care Team (Late st Contact Info) Description 11/08/2022 Refill [facility] MEDICINE 230 [place], [place] [phone] Radha Jamison DO 230 [place] [address] Social History Tobacco Use Types Packs/Day Years [...] 10:00 AM EDT Medication Management [facility] MEDICINE Preet [facility] [place] [address] Nelia [place] [address] 06/18/2024 11:45 AM EDT Office Visit [facility] MEDICINE Preet [facility] [place] [address] [place] [address] documented as of this encounter Goals Goal [...] documented as of this encounter Care Teams Supervisor Floor Assembly Relationship Specialty Start Date End Date [place] [address] PCP - General Family Medicine 01/26/12 Abdias Murillo, PharmD [address] [place] [address] Pharmacist Internal Medicine 03/21/22 08/30/23 Nelia Sullivan, PharmD [address] [place] [address] Pharmacist Internal Medicine 08/31/23 Laurel Monterroso TalcerGlazing Machine Operator 10/27/22 Saige Aguilar 09/26/23 documented as of this encounter
--- OUTSIDE RECORDS SUMMARY | 2024-06-13 12:06 | XMS_ITS | Encounter Summary ---
Author Organization [employer] Address 75 [facility] 7t [place] [address] Care Team Providers Care Life Underwriter Name Role Phone Radha Jamison DO Primary Care Provider [phone]- [phone] Nelia Sullivan PharmD Unavailable [phone] Reason for Visit * Reason Onset Date Comments Med Refill 05/07/2024 Encounter Details Date Type Department Care Team (Late st Contact Info) Description 05/07/2024 Telephone [facility] MEDICINE [address] [place], [place] [phone] Radha Jamison DO 230 [place], [place] [phone] Med Refill Social History Tobacco Use Types [...] the past 12 months, has t he [employer], gas, oil or water [employer] threatened to shut off services in your [...] immediate release tablet To be sent to: [facility] Pharmacy documented in this encounter Plan of Treatment Upcoming Encounters Date Type Department Care Team (Late st Contact Info) Description 06/14/2024 10:00 AM EDT Medication Management [facility] MEDICINE [address] [place] [phone] Nelia Sullivan, PharmD 230 [place] [address] 06/18/2024 11:45 AM EDT Office Visit [facility] MEDICINE [address] [place] [phone] Radha Jamison DO 230 [place] [address] documented as of this encounter Goals Goal [...] documented as of this encounter Care Teams Life Underwriter Relationship Specialty Start Date End Date Radha Jamison DO 230 [place] [address] PCP - General Family Medicine 01/26/12 Laurie, Nelia, PharmD [address] [place] [address] Pharmacist Internal Medicine 08/31/23 Laurel Monterroso Network InternPsychiatric Registered Nurse 10/27/22 Saige Aguilar 09/26/23 documented as of this encounter
--- OUTSIDE RECORDS SUMMARY | 2024-06-13 12:06 | XMS_ITS | Encounter Summary ---
Author Organization [employer] Address 75 [facility] 7t [place] [address] Care Team Providers Care Residential Energy Auditor Name Role Phone Radha Jamison DO Primary Care Provider [phone]- [phone] Nelia Sullivan PharmD Unavailable [phone] Reason for Visit * Reason Onset Date Comments Returning Call 01/17/2024 Hospital Follow-up 01/17/2024 Encounter Details Date Type Department Care Team ([facility] st Contact Info) Description 01/17/2024 Telephone [facility] MEDICINE 230 [place] [address] Radha Jamison DO 230 [place] [address] Returning Call ; Hospital Follow-up Social History [...] t he electric, gas, oil or water [employer] threatened to shut off services in your [...] Description 06/14/2024 10:00 AM EDT Medication Management [facility] MEDICINE [address] [place] [address] Nelia Sullivan, PharmD 230 [place] [address] 06/18/2024 11:45 AM EDT Office Visit [facility] MEDICINE [address] [place] [address] Radha Jamison DO 230 [place] [address] documented as of this encounter Goals Goal [...] documented as of this encounter Care Teams Residential Energy Auditor Relationship Specialty Start Date End Date Radha Jamison DO 230 [place] [address] PCP - General Family Medicine 01/26/12 Puia, Nelia, PharmD [address] [place] [address] Pharmacist Internal Medicine 08/31/23 Laurel Monterroso Drosophere OperatorEgg Tester 10/27/22 Saige Aguilar 09/26/23 documented as of this encounter
--- OUTSIDE RECORDS SUMMARY | 2024-06-13 12:06 | XMS_ITS | Encounter Summary ---
Author Organization [employer] Address [address] [facility] [address] 7t [place] [address] Care Team Providers Care Activity Manager Name Role Phone Radha Jamison DO Primary Care Provider [phone]- [phone] Abdias Murillo PharmD Unavailable Unavail able Nelia Sullivan PharmD Unavailable [phone] Encounter Details Date Type Department Care Team (Late st Contact Info) Description 06/15/2023 Orders Only [facility] MEDICINE 230 [place] [address] Radha Jamison DO 230 [place], [place] [phone] Stenosis of right carotid artery Social History [...] Description 06/14/2024 10:00 AM EDT Medication Management [facility] MEDICINE [address] [place] [address] Nelia Sullivan PharmD [address] [place] [address] 06/18/2024 11:45 AM EDT Office Visit [facility] MEDICINE [address] [place] [address] Radha Jamison DO [address] [place] [address] documented as of this encounter Goals Goal [...] documented as of this encounter Care Teams Activity Manager Relationship Specialty Start Date End Date Radha Jamison DO 230 [place] [address] PCP - General Family Medicine 01/26/12 Abdias Murillo, KeithD 230 [place] [address] Pharmacist Internal Medicine 03/21/22 08/30/23 Nelia Sullivan PharmD 230 [place] [address] Pharmacist Internal Medicine 08/31/23 Laurel Monterroso Tie SawyerForeign Exchange Clerk 10/27/22 Saige Aguilar 09/26/23 documented as of this encounter
--- OUTSIDE RECORDS SUMMARY | 2024-06-13 12:07 | XMS_ITS | Encounter Summary ---
Author Organization [employer] [facility] Address 75 [facility] 7t [place] [address] Care Team Providers Care Partner Cco Name Role Phone ShaheenRadha Primary Care Provider +1- [phone] Abdias Murillo PharmD Unavailable Unavail able Nelia Sullivan PharmD Unavailable Reason for Visit * Reason Onset Date Comments Med Refill Appointment 05/15/2022 Re: her appt for today as [id number] @ 10:15 am. & No active phone # at this time. Encounter Details Date Type Department Care Team (Late st Contact Info) Description 05/15/[address] [facility] MEDICINE 230 [place] [address] Abdias Murillo, PharmD Type 2 diabetes mellitus with other specified complication, with long-term current use of insulin ([facility]) Social History Tobacco Use Types Packs/Day Years [...] pt regarding her appt for today as [id number] @ 10:15 am. And her phone # is not active at this time. documented in this encounter Plan of Treatment Upcoming Encounters Date Type Department Care Team (Late st Contact Info) Description 06/14/2024 10:00 AM EDT Medication Management [facility] MEDICINE [address] [place] [address] Nelia Sullivan PharmD [address] [place] [address] 06/18/2024 11:45 AM EDT Office Visit [facility] MEDICINE [address] [place] [address] Radha Jamison DO [address] [place] [address] documented as of this encounter Goals Goal Patient Goal Type Associated Problems Recent Progress Patient-Stated? Author Hemoglobin A1c < 7 Result Component 10.3( 12:32 PM EDT) No Abdias Murillo, PharmD documented as of this encounter Visit Diagnoses Diagnosis Type 2 diabetes mellitus with other specified complication, with long-term current use of insulin ([facility]) documented in this encounter Additional Health Concerns Assessment Noted Time PHQ-9 Depression Total Score: 14 023 12:00 PM EST documented as of this encounter Care Teams Partner Cco Relationship Specialty Start Date End Date Radha Jmaison DO [address] [place] [address] PCP - General Family Medicine 01/26/12 Abdias Murillo, PharmD [address] [place] [address] Pharmacist Internal Medicine 03/21/22 08/30/23 Nelia Sullivan, KeithD [address] [place] [address] Pharmacist Internal Medicine 08/31/23 Laurel Monterroso Invoicing Machine OperatorConservation Worker 10/27/22 Saige Aguilar 09/26/23 documented as of this encounter
--- OUTSIDE RECORDS SUMMARY | 2024-06-13 12:07 | XMS_ITS | Encounter Summary ---
Author Organization [employer] [facility] Address 75 [facility] 7t [place] [address] Care Team Providers Care Belt Loop Maker Name Role Phone Radha Jamison DO Primary Care Provider [phone]- [phone] Abdias Murillo PharmD Unavailable Unavail able Nelia Sullivan PharmD Unavailable Reason for Visit * Reason Comments Med Refill Encounter Details Date Type Department Care Team (Late Contact Info) Description 07/20/2022 Refill [facility] 230 [place] [address] Radha Jamison DO 230 [place] [address] Hypertension, unspecified type Social History Tobacco Use [...] Description 06/14/2024 10:00 AM EDT Medication Management [facility] MED[facility] 230 [facility] [place] [address] Nelia Sullivan PharmD [address] [place] [address] 06/18/2024 11:45 AM EDT Office Visit [facility] 230 [facility] [place] [address] Radha Jamison DO [address] [place] [address] documented as of this encounter Goals Goal [...] documented as of this encounter Care Teams Belt Loop Maker Relationship Specialty Start Date End [place] [address] PCP - General Family Medicine 01/26/12 Abdias Murillo, PharmD [facility] [place] [address] Pharmacist Internal Medicine 03/21/22 08/30/23 Nelia Sullivan PharmD [facility]reet [facility] [place] [address] Pharmacist Internal Medicine 08/31/23 Laurel Monterroso Management ManagerFruit Sprayer 10/27/22 Saige Aguilar 09/26/23 documented as of this encounter
--- OUTSIDE RECORDS SUMMARY | 2024-06-13 12:07 | XMS_ITS | Encounter Summary ---
Author Organization [employer] [facility] Address [address] [facility] 7t [place] [address] Care Team Providers Care Surgical Assistant Certified Name Role Phone Radha Jamison DO Primary Care Provider +1- [phone] DelAdbias hardy PharmD Unavailable Unavail able Nelia Sullivan PharmD Unavailable Reason for Visit * Reason Comments Med Refill Encounter Details Date Type Department Care Team (Late st Contact Info) Description 06/10/2022 Refill [facility] MED[facility] 230 [place] [address] Radha Jamison DO 230 [place] [address] Chronic bilateral low back pain, unspecified whether [...] [facility] 230 [facility] [place] [address] Nelia Sullivan PharmD 230 [place] [address] 06/18/2024 11:45 AM EDT Office Visit [facility] MED[facility] 230 [facility] [place] [address] Radha Jamison DO 230 [facility] [place] [address] documented as of this encounter Goals Goal [...] documented as of this encounter Care Teams Surgical Assistant Certified Relationship Specialty Start Date End Date Radha Jamison DO [facility] [place] [address] PCP - General Family Medicine 01/26/12 Abdias Murillo, PharmD [facility] [place] [address] Pharmacist Internal Medicine 03/21/22 08/30/23 Nelia [place] [address] Pharmacist Internal Medicine 08/31/23 Laurel Monterroso Cone TreaterEvp Sales 10/27/22 Saige Aguilar 09/26/23 documented as of this encounter
--- OUTSIDE RECORDS SUMMARY | 2024-06-13 12:07 | XMS_ITS | Encounter Summary ---
Author Organization [employer] [facility] Address [address] [facility] 7t [place] [address] Care Team Providers Care Crystal Syrup Maker Name Role Phone Radha Jamison DO Primary Care Provider DelAbdias hardy PharmD Unavailable Unavail able Nelia Sullivan PharmD Unavailable [phone] Reason for Visit * Reason Comments Med Refill Encounter Details Date Type Department Care Team (Late Contact Info) Description 01/31/2022 Refill [facility] 230 [place] [address] Radha Jamison DO 230 [place] [address] Chronic bilateral low back pain, unspecified whether [...] Description 06/14/2024 10:00 AM EDT Medication Management [facility] MEDICINE 230 [place] [address] Puia, Nelia, PharmD [address] [facility] [place] [address] 06/18/2024 11:45 AM EDT Office Visit [facility] [address] [facility] [place] [address] Radha Jamison DO [facility] [place] [address] documented as of this encounter Visit Diagnoses Diagnosis Chronic bilateral low back pain, unspecified whether sciatica present documented in this encounter Care Teams Crystal Syrup Maker Relationship Specialty Start Date End [place] [address] PCP - General Family Medicine 01/26/12 Abdias Murillo PharmD [facility] [place] [address] Pharmacist Internal Medicine 03/21/22 08/30/23 Nelia Sullivan, PharmD [facility] [place] [address] Pharmacist Internal Medicine 08/31/23 Laurel Monterroso Oracle Drm ConsultantWood Scaler 10/27/22 Saige Aguilar 09/26/23 documented as of this encounter
--- OUTSIDE RECORDS SUMMARY | 2024-06-13 12:07 | XMS_ITS | Encounter Summary ---
Author Organization [employer] Address [address] [facility] 7t [place] [address] Care Team Providers Care Rat Culturist Name Role Phone Radha Jamison DO Primary Care Provider +1- [phone] Abdias Murillo PharmD Unavailable Unavail able Nelia Sullivan PharmD Unavailable [phone] Reason for Visit * Reason Comments Med Refill Encounter Details Date Type Department Care Team (Late st Contact Info) Description 02/14/2023 Refill [facility] 230 [place], [place] [phone] Radha Jamison DO 230 [place] [address] Chronic bilateral low back pain, unspecified whether [...] AM EDT Medication Management [facility] [address] [place] [address] Nelia Sullivan PharmD [address] [place] [address] 06/18/2024 11:45 AM EDT Office Visit [facility] [address] [place] [address] Radha Jamison DO [address] [place] [address] documented as of this encounter Goals Goal [...] documented as of this encounter Care Teams Rat Culturist Relationship Specialty Start Date End Date Radha Jamison DO [address] [place] [address] PCP - General Family Medicine 01/26/12 Abdias Murillo, KeithD 230 [place] [address] Pharmacist Internal Medicine 03/21/22 08/30/23 Nelia Sullivan, KeithD 230 [facility] [place] [address] Pharmacist Internal Medicine 08/31/23 Laurel Monterroso Cad InternRegistration Representative 10/27/22 Saige Aguilar 09/26/23 documented as of this encounter
--- OUTSIDE RECORDS SUMMARY | 2024-06-13 12:07 | XMS_ITS | Encounter Summary ---
Author Organization [employer] Address 75 [facility] 7t [place] [address] Care Team Providers Care Women'S Health Care Nurse Practitioner Name Role Phone Radha Jamison DO Primary Care Provider +1- [phone] Nelia Sullivan PharmD Unavailable [phone] Encounter Details Date Type Department Care Team ([facility] st Contact Info) Description 05/24/2024 Telephone [facility] MEDICINE 230 [place], [place] [phone] Radha Jamison DO 230 [place], [place] [phone] Social History Tobacco Use Types Packs/Day Years [...] PM EDT Please initiate PT-1 services for [facility], [facility], [facility] nephrology, [facility] vascular and [facility] cardiology. Thank you. documented in this encounter Plan of Treatment Upcoming Encounters Date Type Department Care Team (Late st Contact Info) Description 06/14/2024 10:00 AM EDT Medication Management [facility] MEDICINE [address] [place] [address] Nelia Sullivan, PharmD 230 [place] [address] 06/18/2024 11:45 AM EDT Office Visit [facility] MEDICINE [address] [place] [address] Radha Jamison DO 230 [place] [address] documented as of this encounter Goals Goal [...] documented as of this encounter Care Teams Women'S Health Care Nurse Practitioner Relationship Specialty Start Date End Date Radha Jamison DO 230 [place] [address] PCP - General Family Medicine 01/26/12 Nelia Sullivan, PharmD 230 [place] [address] Pharmacist Internal Medicine 08/31/23 Laurel Monterroso Power LinemanHardness Tester 10/27/22 Saige Aguilar 09/26/23 documented as of this encounter
--- OUTSIDE RECORDS SUMMARY | 2024-06-13 12:07 | XMS_ITS | Encounter Summary ---
Author Organization [employer] Address 75 [facility] 7t [place] [address] Care Team Providers Care Horse Doctor Name Role Phone Radha Jamison DO Primary Care Provider +1- [phone] Abdias Murillo PharmD Unavailable Unavail able Nelia Sullivan PharmD Unavailable [phone] Reason for Visit * Reason Comments Med Refill Encounter Details Date Type Department Care Team (Late st Contact Info) Description 02/15/2023 Refill [facility] MEDICINE 230 [place], [place] [phone] Radha Jamison DO 230 [place] [address] Chronic bilateral low back pain, unspecified whether [...] EDT Medication Management [facility] MEDICINE [address] [place] [address] Nelia Sullivan PharmD [address] [place] [address] 06/18/2024 11:45 AM EDT Office Visit [facility] MEDICINE [address] [place] [address] Radha Jamison DO [address] [place] [address] documented as of this encounter Goals Goal [...] documented as of this encounter Care Teams Horse Doctor Relationship Specialty Start Date End Date Radha Jamison DO [address] [place] [address] PCP - General Family Medicine 01/26/12 Abdias Murillo, KeithD 230 [place] [address] Pharmacist Internal Medicine 03/21/22 08/30/23 Nelia Sullivan, KeithD 230 [place] [address] Pharmacist Internal Medicine 08/31/23 Laurel Monterroso Locker Plant AttendantCountersinker 10/27/22 Saige Aguilar 09/26/23 documented as of this encounter
--- OUTSIDE RECORDS SUMMARY | 2024-06-13 12:07 | XMS_ITS | Encounter Summary ---
Author Organization [employer] Address 75 [facility] 7t [place] [address] Care Team Providers Care Vending Machine Filler Name Role Phone Radha Jamison DO Primary Care Provider +1- [phone] Abdias Murillo PharmD Unavailable Unavail able Nelia Sullivan PharmD Unavailable [phone] Reason for Visit * Reason Comments Med Refill Encounter Details Date Type Department Care Team (Late st Contact Info) Description 12/21/2022 Refill [facility] MEDICINE 230 [place] [address] Radha Jamison DO 230 [place] [address] Chronic bilateral low back pain, unspecified whether [...] 10:00 AM EDT Medication Management [facility] MEDICINE [address] [place] [address] Nelia Sullivan PharmD [address] [place] [address] 06/18/2024 11:45 AM EDT Office Visit [facility] MEDICINE [address] [place] [address] Radha Jamison DO [address] [place] [address] documented as of this encounter Goals Goal [...] documented as of this encounter Care Teams Vending Machine Filler Relationship Specialty Start Date End Date Radha Jamison DO [address] [place] [address] PCP - General Family Medicine 01/26/12 Abdias Murillo, KeithD 230 [place] [address] Pharmacist Internal Medicine 03/21/22 08/30/23 Nelia Sullivan, KeithD 230 [facility] [place] [address] Pharmacist Internal Medicine 08/31/23 Laurel Monterroso Healthcare Financial AnalystHydraulic And Plumbing Installer 10/27/22 Saige Aguilar 09/26/23 documented as of this encounter
--- OUTSIDE RECORDS SUMMARY | 2024-06-13 12:07 | XMS_ITS | Encounter Summary ---
Author Organization [employer] Address 75 [facility] 7t [place] [address] Care Team Providers Care Energy Project Engineer Name Role Phone Radha Jamison DO Primary Care Provider +1- [phone] Nelia Sullivan PharmD Unavailable [phone] Reason for Visit * Reason Comments Med Refill Encounter Details Date Type Department Care Team ([facility] st Contact Info) Description 10/30/[address] [facility] MEDICINE 230 [place], [place] [phone] Radha Jamison DO 230 [place] [address] Chronic bilateral low back pain, unspecified whether [...] 10:00 AM EDT Medication Management [facility] MEDICINE [address] [place] [address] AnaiiaNelia, PharmD [address] [place] [address] 06/18/2024 11:45 AM EDT Office Visit [facility] MEDICINE [address] [place] [address] Radha Jamison DO [address] [place] [address] documented as of this encounter Goals Goal [...] documented as of this encounter Care Teams Energy Project Engineer Relationship Specialty Start Date End Date Radha Jamison DO 230 [place] [address] PCP - General Family Medicine 01/26/12 Nelia Sullivan PharmD 230 [place] [address] Pharmacist Internal Medicine 08/31/23 Laurel Monterroso Dye Colorist DyerShoe Salesman 10/27/22 Saige Aguilar 09/26/23 documented as of this encounter
--- OUTSIDE RECORDS SUMMARY | 2024-06-13 12:07 | XMS_ITS | Encounter Summary ---
Author Organization [employer] Address 75 [facility] 7t [place] [address] Care Team Providers Care Phlebotomy Technologist Name Role Phone Radha Jamison DO Primary Care Provider +1- [phone] Abdias Murillo PharmD Unavailable Unavail able Nelia Sullivan PharmD Unavailable [phone] Reason for Visit * Reason Comments Med Refill Encounter Details Date Type Department Care Team (Late st Contact Info) Description 12/20/2022 Refill [facility] MEDICINE 230 [place] [address] Radha Jamison DO 230 [place] [address] Chronic bilateral low back pain, unspecified whether [...] Description 06/14/2024 10:00 AM EDT Medication Management [facility] MEDICINE [address] [place] [address] Nelia Sullivan PharmD [address] [place] [address] 06/18/2024 11:45 AM EDT Office Visit [facility] MEDICINE [address] [place] [address] Radha Jamison DO [address] [place] [address] documented as of this encounter Goals Goal [...] documented as of this encounter Care Teams Phlebotomy Technologist Relationship Specialty Start Date End Date Radha Jamison DO [address] [place] [address] PCP - General Family Medicine 01/26/12 Abdias Murillo, KeithD 230 [place] [address] Pharmacist Internal Medicine 03/21/22 08/30/23 Nelia Sullivan, KeithD 230 [facility] [address] Pharmacist Internal Medicine 08/31/23 Laurel Monterroso Production Bow MakerHeavy Machinery Operator 10/27/22 Saige Aguilar 09/26/23 documented as of this encounter
--- OUTSIDE RECORDS SUMMARY | 2024-06-13 12:07 | XMS_ITS | Encounter Summary ---
Author Organization [employer] Address 75 [facility] 7t [place] [address] Care Team Providers Care Facility Maintenance Worker Name Role Phone Radha Jamison DO Primary Care Provider +1- [phone] Nelia Sullivan PharmD Unavailable [phone] Encounter Details Date Type Department Care Team ([facility] st Contact Info) Description 01/30/2024 Telephone [facility] MED & PEDS [address] [place], [place] [phone] Radha Jamison DO 230 [facility] [place] [address] Social History Tobacco Use Types Packs/Day Years [...] 10:00 AM EDT Medication Management [facility] MEDICINE [address] [place] [address] Nelia Sullivan, PharmD 230 [place] [address] 06/18/2024 11:45 AM EDT Office Visit [facility] MEDICINE [address] [place] [address] Radha Jamison DO 230 [place] [address] documented as of this encounter Goals Goal [...] documented as of this encounter Care Teams Facility Maintenance Worker Relationship Specialty Start Date End Date Radha Jamison DO 230 [place] [address] PCP - General Family Medicine 01/26/12 Nelia Sullivan PharmD 230 [place] [address] Pharmacist Internal Medicine 08/31/23 Laurel Monterroso Cooker CasingTop Polisher 10/27/22 Saige Aguilar 09/26/23 documented as of this encounter
--- OUTSIDE RECORDS SUMMARY | 2024-06-13 12:07 | XMS_ITS | Encounter Summary ---
Author Organization [employer] Address 75 [facility] 7t [place] [address] Care Team Providers Care Court Assistant Name Role Phone Radha Jamison DO Primary Care Provider +1- [phone] Abdias Murillo PharmD Unavailable Unavail able Nelia Sullivan PharmD Unavailable [phone] Reason for Visit * Reason Comments Med Refill Encounter Details Date Type Department Care Team (Late st Contact Info) Description 12/22/2022 Refill [facility] MEDICINE 230 [place] [address] Radha Jamison DO 230 [place] [address] Chronic bilateral low back pain, unspecified whether [...] Description 06/14/2024 10:00 AM EDT Medication Management [facility] MEDICINE [address] [place] [address] Nelia Sullivan PharmD [address] [place] [address] 06/18/2024 11:45 AM EDT Office Visit [facility] MEDICINE [address] [place] [address] Radha Jamison DO [address] [place] [address] documented as of this encounter Goals Goal [...] as of this encounter Care Teams Court Assistant Relationship Specialty Start Date End Date Radha Jamison DO [address] [place] [address] PCP - General Family Medicine 01/26/12 Abdias Murillo, KeithD 230 [place] [address] Pharmacist Internal Medicine 03/21/22 08/30/23 Nelia Sullivan, KeithD 230 [facility] [address] Pharmacist Internal Medicine 08/31/23 Laurel Monterroso Echo TechnicianCelluloid Trimmer 10/27/22 Saige Aguilar 09/26/23 documented as of this encounter
--- OUTSIDE RECORDS SUMMARY | 2024-06-13 12:07 | XMS_ITS | Encounter Summary ---
Author Organization [employer] Address 75 [facility] 7t [place] [address] Care Team Providers Care Public Health Representative Name Role Phone Radha Jamison DO Primary Care Provider DelAbdias hardy PharmD Unavailable Unavail able Nelia Sullivan PharmD Unavailable Reason for Visit * Reason Comments Med Refill Encounter Details Date Type Department Care Team (Late st Contact Info) Description 01/24/2022 Telephone [facility] MED & PEDS [address] [place], [place] [phone] Radha Jamison DO 230 [place] [address] Med Refill Social History Tobacco Use Types [...] Description 06/14/2024 10:00 AM EDT Medication Management [facility] MEDICINE [address] [place] [address] Nelia Sullivan PharmD 230 [place] [address] 06/18/2024 11:45 AM EDT Office Visit [address] [address] Radha Jamison DO 230 [place] [address] documented as of this encounter Visit Diagnoses Diagnosis Chronic bilateral low back pain, unspecified whether sciatica present documented in this encounter Care Teams Public Health Representative Relationship Specialty Start Date End Date [place] [address] PCP - General Family Medicine 01/26/12 Abdias Murillo, KeithD [address] [place] [address] Pharmacist Internal Medicine 03/21/22 08/30/23 Nelia Sullivan, PharmD [address] [place] [address] Pharmacist Internal Medicine 08/31/23 Laurel Monterroso Snack Bar CookPetroleum Inspector Supervisor 10/27/22 Saige Aguilar 09/26/23 documented as of this encounter
--- OUTSIDE RECORDS SUMMARY | 2024-06-13 12:07 | XMS_ITS | Encounter Summary ---
Author Organization [employer] Address 75 [facility] 7t [place] [address] Care Team Providers Care Blocker Hand Name Role Phone Radha Jamison DO Primary Care Provider +1- [phone] Nelia Sullivan PharmD Unavailable [phone] Reason for Visit * Reason Comments Med Refill Encounter Details Date Type Department Care Team ([facility] st Contact Info) Description 11/21/2023 Refill [facility] MEDICINE 230 [place], [place] [phone] Radha Jamison DO 230 [place] [address] Chronic bilateral low back pain, unspecified whether [...] Description 06/14/2024 10:00 AM EDT Medication Management [facility] MEDICINE [address] [place] [address] AnaiiaNelia, PharmD [address] [place] [address] 06/18/2024 11:45 AM EDT Office Visit [facility] MEDICINE [address] [place] [address] Radha Jamison DO [address] [place] [address] documented as of this encounter Goals Goal [...] documented as of this encounter Care Teams Blocker Hand Relationship Specialty Start Date End Date Radha Jamison DO 230 [place] [address] PCP - General Family Medicine 01/26/12 Nelia Sullivan PharmD 230 [place] [address] Pharmacist Internal Medicine 08/31/23 Laurel Monterroso Mechanic General Operational TestStrategic Intelligence Officer 10/27/22 Saige Aguilar 09/26/23 documented as of this encounter
--- OUTSIDE RECORDS SUMMARY | 2024-06-13 12:07 | XMS_ITS | Encounter Summary ---
Author Organization [employer] Address 75 [facility] 7t [place] [address] Care Team Providers Care Truck Loader Name Role Phone Radha Jamison DO Primary Care Provider +1- [phone] Abdias Murillo PharmD Unavailable Unavail able Nelia Sullivan PharmD Unavailable [phone] Reason for Visit * Reason Comments Med Refill Encounter Details Date Type Department Care Team (Late st Contact Info) Description 03/14/2023 Refill [facility] MEDICINE 230 [place], [place] [phone] Radha Jamison DO 230 [place] [address] Chronic bilateral low back pain, unspecified whether [...] EDT Medication Management [facility] MEDICINE [address] [place] [address] Nelia Sullivan PharmD [address] [place] [address] 06/18/2024 11:45 AM EDT Office Visit [facility] MEDICINE [address] [place] [address] Radha Jamison DO [address] [place] [address] documented as of this encounter Goals Goal [...] documented as of this encounter Care Teams Truck Loader Relationship Specialty Start Date End Date Radha Jamison DO [address] [place] [address] PCP - General Family Medicine 01/26/12 Abdias Murillo, KeithD 230 [place] [address] Pharmacist Internal Medicine 03/21/22 08/30/23 Nelia Sullivan, KeithD 230 [facility] [place] [address] Pharmacist Internal Medicine 08/31/23 Laurel Monterroso Wet Suit GluerGear Finisher 10/27/22 Saige Aguilar 09/26/23 documented as of this encounter
--- OUTSIDE RECORDS SUMMARY | 2024-06-13 12:07 | XMS_ITS | Encounter Summary ---
Author Organization [employer] [facility] Address [address] [facility] [address] [place] [address] Care Team Providers Care Physiognomist Name Role Phone Radha Jaimson DO Primary Care Provider DellogAbdias cotto PharmD Unavailable Unavail able PuNelia cortes PharmD Unavailable [phone] Encounter Details Date Type Department Care Team (Late st Contact Info) Description 02/03/2022 Orders Only [facility] [address] [place] [address] Radha Jamison DO [address] [place] [address] Social History Tobacco Use Types Packs/Day Years [...] Description 06/14/2024 10:00 AM EDT Medication Management [facility] [address] [place] [address] Puia, Nelia, PharmD [address] [place] [address] 06/18/2024 11:45 AM EDT Office Visit [facility] [address] [place] [address] Radha Jamison DO [address] [place], [place] [address] documented as of this encounter Procedures Procedure [...] Sedimentation Rate 23(H) 0 - 20 MM/HR [facility] Comment:Patients with polycy themia and many hemoglobin abnormalitiesmay have depressed sed rates whereas patients with anemiamay have elevated sed rates. 04/24/2022 4:19 PM EDT 04/24/2022 4:27 PM EDT [facility] External Provider LAB BLO OD ORDERABLES Final Result Performing Organization Address [facility] Co de Phone Number [facility] [address] [place] [address] [phone] * C-reactive Protein (04/24/2022 4:19 PM EDT) Pathologist [facility] C Reactive Protein 0.28 < or = 0.50 mg/dL [facility] 04/24/2022 4:19 PM EDT 04/24/2022 4:22 PM EDT [facility] External Provider LAB BLO OD ORDERABLES Final Result Performing Organization Address [facility] Co de Phone Number [facility] [address] [place] [phone] * Magnesium (04/24/2022 4:19 PM EDT) [facility] Magnesium 1.7 1.6 - 2.6 mg/dL [facility] 04/24/2022 4:19 PM EDT 04/24/2022 4:22 PM EDT [facility] External Provider LAB BLO OD ORDERABLES Final Result Performing Organization Address [facility] de Phone Number [facility] [address] [place] [phone] * (ABNORMAL) Basic Metabolic Panel (04/24/2022 4:19 PM EDT) [facility] Sodium 135 135 - 145 mmol/L [facility] Potassium 4.7 3.3 - 5.1 mmol/L [facility] Chloride 100 96 - 108 mmol/L [facility] Carbon Dioxide 27 22 - 29 mmol/L [facility] Anion Gap 13 12 - 20 [facility] Urea Nitrogen (BUN) 20(H) 9 - 16 mg/dL [facility] Creatinine, Serum 1.01 0.5 - 1.4 mg/dL [facility] Creatinine Clr Calc Pharmacy 48.8 [facility] Comment:Provided height and weight: 152.4 cm,62.4 kg.eGFR (calculated from the MDRD study equation) and eCrCl(calculated from the Cockcroft-Gault equation) are based ondifferent parameters and may not yield comparable results.If eCrCl result is absurd, please check patient'sheight/weight. Estimated Glomerular Filt Rate 56 [facility] Comment:NOTE: For -Am erican individuals, multiply the result by 1.210.Chronic Kidney Disease: Estimated GFR < 60 mL/min/1.03b5Sbdnud Kidney Disease: Estimated GFR < 15 mL/min/1.73m2 Glucose 269(H) 60 - 115 mg/dL [facility] Calcium 9.2 8.4 - 10.2 mg/dL [facility] 04/24/2022 4:19 PM EDT 04/24/2022 4:22 PM EDT [facility] External Provider LAB BLO OD ORDERABLES Final Result [facility] [address] [place] [address] [phone] * Hepatic Function Panel (04/24/2022 4:19 PM EDT) Bilirubin, Total 0.6 0.0 - 1.0 mg/dL [facility] Bilirubin, Direct <0.2 0.0 - 0.5 mg/dL [facility] Aspartate Amino Transferase 11 5 - 31 U/L [facility] Alanine Aminotransferase 6 0 - 31 U/L [facility] Total Protein 6.5 6.5 - 8.0 g/dL [facility] Albumin Level 4.0 3.5 - 5.0 g/dL [facility] Alkaline Phosphatase 80 39 - 117 U/L [facility] 04/24/2022 4:19 PM EDT 04/24/2022 4:22 PM EDT us [facility] External Provider LAB BLO OD ORDERABLES Final Result [facility] [address] [place], [place] [phone] * (ABNORMAL) CBC auto differential (04/24/2022 4:19 PM EDT) White Blood Count 7.3 4.8 - 10.8 X10*3/uL [facility] Red Blood Count 4.14(L) 4.20 - 5.50 X10*6/uL [facility] Hemoglobin 12.1 12.0 - 16.0 g/dl [facility] Hematocrit 36.6(L) 37.0 - 47.0 % [facility] Mean Corpuscular Volume 88.4 80.0 - 98.0 fL [facility] Mean Corpuscular Hemoglobin 29.2 27.0 - 33.0 pg [facility] Mean Corpuscular HGB Conc 33.1 31.0 - 35.0 g/dl [facility] Red Cell Distribution Width 13.4 11.0 - 16.0 % [facility] Platelet Count 333 160 - 400 X10*3/uL [facility] Mean Platelet Volume 8.9(L) 9.4 - 12.3 fL [facility] Neutrophils Percent Auto 62.4 45 - 73 % [facility] Imm Gran Pct Auto 0.3 0.0 - 0.4 % [facility] Lymphocytes Percent Auto 28.8 20 - 40 % [facility] Monocytes Percent Auto 5.3 2 - 11 % [facility] Eosinophils Percent Auto 2.7 0 - 4 % [facility] Basophils Percent Auto 0.5 0 - 2 % [facility] NRBC Pct Auto 0.0 0.0 - 0.2 /100WBC [facility] Neutrophils Absolute Auto 4.6 2.0 - 8.3 x10*3/uL [facility] Imm Gran Abs Auto 0.02 0.00 - 0.03 X10*3/uL [facility] Lymphocytes Absolute Auto 2.1 1.2 - 4.9 X10*3/uL [facility] Monocytes Absolute Auto 0.4 0.1 - 1.2 X10*3/uL [facility] Eosinophils Absolute Auto 0.2 0.0 - 0.4 X10*3/uL [facility] Basophils Absolute Auto 0.0 0.0 - 0.2 X10*3/uL [facility] NRBC Abs Auto 0.000 0.0 - 0.012 X10*3/uL [facility] 04/24/2022 4:19 PM EDT 04/24/2022 4:22 PM EDT us [facility] External Provider LAB BLO OD ORDERABLES Final Result [facility] [address] [place] [address] [phone] * (ABNORMAL) Urinalysis, Complete, with Reflex to Culture (04/17/2022 10:53 AM EST) Color Urine Yellow [facility] Appearance Urine Clear [facility] PH 7.5 5.0 - 9.0 [facility] Glucose Urine UA 100(A) Negative mg/dL [facility] Urine Blood Negative Negative [facility] Specific [place] - Urine >=1.030(H) 1.005 - 1.025 [facility] Urine Protein 100 (2+)(A) Neg-Trace mg/dL [facility] Urine Ketones Negative Negative mg/dL [facility] Nitrite Urine Negative Negative [facility] Leukocyte Esterase Urine Negative Negative [facility] RBC Urine 3-5(A) 0 - 2 /HPF [facility] Urine WBC 0-5 0 - 5 /HPF [facility] Urine Squamous Epithelial Cell 3-5 0 - 2 /HPF [facility] Urine Bacteria None Seen None Seen [facility] Hyaline Casts, Urine 0-2 0 - 2 /LPF [facility] 04/17/2022 10:5 3 AM EST 04/17/2022 10:56 AM EST Narrative [facility] - 04/17/2022 11:06 AM EST Urine, Clean Catch [facility] External Provider LAB URI NE ORDERABLES Final Result Performing Organization Address [facility] Co de Phone Number [facility] [address] [place] [phone] * (ABNORMAL) Sed Rate by Modified Kamaljitergren (04/17/2022 8:21 AM EST) Erythrocyte Sedimentation Rate 23(H) 0 - 20 MM/HR [facility] Comment:Patients with polycy themia and many hemoglobin abnormalitiesmay have depressed sed rates whereas patients with anemiamay have elevated sed rates. 04/17/2022 8:21 AM EST 04/17/2022 8:41 AM EST [facility] External Provider LAB BLO OD ORDERABLES Final Result Performing Organization Address [facility] Co de Phone Number [facility] [address] [place] [phone] * Lipase (04/17/2022 8:21 AM EST) Lipase 10 8 - 78 U/L [facility] 04/17/2022 8:21 AM EST 04/17/2022 8:24 AM EST [facility] External Provider LAB BLO OD ORDERABLES Final Result Performing Organization Address [facility] Co de Phone Number [facility] [address] [place] [phone] * C-reactive Protein (04/17/2022 8:21 AM EST) C Reactive Protein 0.23 < or = 0.50 mg/dL [facility] 04/17/2022 8:21 AM EST 04/17/2022 8:24 AM EST [facility] External Provider LAB BLO OD ORDERABLES Final Result Performing Organization Address [facility] Co de Phone Number [facility] [address] [place] [phone] * Magnesium (04/17/2022 8:21 AM EST) Magnesium 1.6 1.6 - 2.6 mg/dL [facility] 04/17/2022 8:21 AM EST 04/17/2022 8:24 AM EST [facility] External Provider LAB BLO OD ORDERABLES Final Result Performing Organization Address [facility] Phone Number [facility] [address] [place] [phone] * (ABNORMAL) Hepatic Function Panel (04/17/2022 8:21 AM EST) Bilirubin, Total 0.7 0.0 - 1.0 mg/dL [facility] Bilirubin, Direct <0.2 0.0 - 0.5 mg/dL [facility] Aspartate Amino Transferase 10 5 - 31 U/L [facility] Alanine Aminotransferase 7 0 - 31 U/L [facility] Total Protein 6.2(L) 6.5 - 8.0 g/dL [facility] Albumin Level 3.8 3.5 - 5.0 g/dL [facility] Alkaline Phosphatase 71 39 - 117 U/L [facility] 04/17/2022 8:21 AM EST 04/17/2022 8:24 AM EST [facility] External Provider LAB BLO OD ORDERABLES Final Result Performing Organization Address [facility] Co de Phone Number [facility] [address] [place] [phone] * (ABNORMAL) Basic Metabolic Panel (04/17/2022 8:21 AM EST) Sodium 138 135 - 145 mmol/L [facility] Potassium 4.9 3.3 - 5.1 mmol/L [facility] Chloride 104 96 - 108 mmol/L [facility] Carbon Dioxide 26 22 - 29 mmol/L [facility] Anion Gap 13 12 - 20 [facility] Urea Nitrogen (BUN) 17(H) 9 - 16 mg/dL [facility] Creatinine, Serum 0.79 0.5 - 1.4 mg/dL [facility] Creatinine Clr Calc Pharmacy 66.3 [facility] Comment:Provided height and weight: 157.48 cm,63.503 kg.eGFR (calculated from the MDRD study equation) and eCrCl(calculated from the Cockcroft-Gault equation) are based ondifferent parameters and may not yield comparable results.If eCrCl result is absurd, please check patient'sheight/weight. Estimated Glomerular Filt Rate >60 [facility] Comment:NOTE: For -Am erican individuals, multiply the result by 1.210.Chronic Kidney Disease: Estimated GFR < 60 mL/min/1.73w7Pgkuya Kidney Disease: Estimated GFR < 15 mL/min/1.73m2 Glucose 272(H) 60 - 115 mg/dL [facility] Calcium 9.1 8.4 - 10.2 mg/dL [facility] 04/17/2022 8:21 AM EST 04/17/2022 8:24 AM EST us [facility] External Provider LAB BLO OD ORDERABLES Final Result [facility] [address] [place] [phone] [phone] * (ABNORMAL) CBC auto differential (04/17/2022 8:21 AM EST) White Blood Count 5.7 4.8 - 10.8 X10*3/uL [facility] Red Blood Count 4.01(L) 4.20 - 5.50 X10*6/uL [facility] Hemoglobin 11.7(L) 12.0 - 16.0 g/dl [facility] Hematocrit 35.9(L) 37.0 - 47.0 % [facility] Mean Corpuscular Volume 89.5 80.0 - 98.0 fL [facility] Mean Corpuscular Hemoglobin 29.2 27.0 - 33.0 pg [facility] Mean Corpuscular HGB Conc 32.6 31.0 - 35.0 g/dl [facility] Red Cell Distribution Width 13.4 11.0 - 16.0 % [facility] Platelet Count 309 160 - 400 X10*3/uL [facility] Mean Platelet Volume 9.3(L) 9.4 - 12.3 fL [facility] Neutrophils Percent Auto 60.9 45 - 73 % [facility] Imm Gran Pct Auto 0.4 0.0 - 0.4 % [facility] Lymphocytes Percent Auto 27.3 20 - 40 % [facility] Monocytes Percent Auto 6.3 2 - 11 % [facility] Eosinophils Percent Auto 4.4(H) 0 - 4 % [facility] Basophils Percent Auto 0.7 0 - 2 % [facility] NRBC Pct Auto 0.0 0.0 - 0.2 /100WBC [facility] Neutrophils Absolute Auto 3.5 2.0 - 8.3 x10*3/uL [facility] Imm Gran Abs Auto 0.02 0.00 - 0.03 X10*3/uL [facility] Lymphocytes Absolute Auto 1.6 1.2 - 4.9 X10*3/uL [facility] Monocytes Absolute Auto 0.4 0.1 - 1.2 X10*3/uL [facility] Eosinophils Absolute Auto 0.3 0.0 - 0.4 X10*3/uL [facility] Basophils Absolute Auto 0.0 0.0 - 0.2 X10*3/uL [facility] NRBC Abs Auto 0.000 0.0 - 0.012 X10*3/uL [facility] 04/17/2022 8:21 AM EST 04/17/2022 8:24 AM EST [facility] External Provider LAB BLO OD ORDERABLES Final Result Performing Organization Address City/[facility]/ZIP Co de Phone Number [facility] [address] [place] [phone] * Creatinine, Serum (04/13/2022 7:33 AM EST) Creatinine, Serum 0.75 0.5 - 1.4 mg/dL [facility] Creatinine Clr Calc Pharmacy 70.3 [facility] Comment:Provided height and weight: 157.48 cm,64.41 kg.eGFR (calculated from the MDRD study equation) and eCrCl(calculated from the Cockcroft-Gault equation) are based ondifferent parameters and may not yield comparable results.If eCrCl result is absurd, please check patient'sheight/weight. Estimated Glomerular Filt Rate >60 [facility] Comment:NOTE: For -Am erican individuals, multiply the result by 1.210.Chronic Kidney Disease: Estimated GFR < 60 mL/min/1.37t4Vgeicn Kidney Disease: Estimated GFR < 15 mL/min/1.73m2 04/13/2022 7:33 AM EST 04/13/2022 7:38 AM EST [facility] External Provider LAB BLO OD ORDERABLES Final Result Performing Organization Address City/[facility]/ZIP Co de Phone Number [facility] [address] [place] [phone] * BUN (Blood Urea Nitrogen) (04/13/2022 7:33 AM EST) Urea Nitrogen (BUN) 12 9 - 16 mg/dL [facility] 04/13/2022 7:33 AM EST 04/13/2022 7:38 AM EST us [facility] External Provider LAB BLO OD ORDERABLES Final Result [facility] [address] [place] [phone] * (ABNORMAL) CBC auto differential (04/13/2022 7:33 AM EST) White Blood Count 6.6 4.8 - 10.8 X10*3/uL [facility] Red Blood Count 4.12(L) 4.20 - 5.50 X10*6/uL [facility] Hemoglobin 12.1 12.0 - 16.0 g/dl [facility] Hematocrit 36.6(L) 37.0 - 47.0 % [facility] Mean Corpuscular Volume 88.8 80.0 - 98.0 fL [facility] Mean Corpuscular Hemoglobin 29.4 27.0 - 33.0 pg [facility] Mean Corpuscular HGB Conc 33.1 31.0 - 35.0 g/dl [facility] Red Cell Distribution Width 13.6 11.0 - 16.0 % [facility] Platelet Count 291 160 - 400 X10*3/uL [facility] Mean Platelet Volume 9.0(L) 9.4 - 12.3 fL [facility] Neutrophils Percent Auto 55.5 45 - 73 % [facility] Imm Gran Pct Auto 0.2 0.0 - 0.4 % [facility] Lymphocytes Percent Auto 33.7 20 - 40 % [facility] Monocytes Percent Auto 6.5 2 - 11 % [facility] Eosinophils Percent Auto 3.6 0 - 4 % [facility] Basophils Percent Auto 0.5 0 - 2 % [facility] NRBC Pct Auto 0.0 0.0 - 0.2 /100WBC [facility] Neutrophils Absolute Auto 3.7 2.0 - 8.3 x10*3/uL [facility] Imm Gran Abs Auto 0.01 0.00 - 0.03 X10*3/uL [facility] Lymphocytes Absolute Auto 2.2 1.2 - 4.9 X10*3/uL [facility] Monocytes Absolute Auto 0.4 0.1 - 1.2 X10*3/uL [facility] Eosinophils Absolute Auto 0.2 0.0 - 0.4 X10*3/uL [facility] Basophils Absolute Auto 0.0 0.0 - 0.2 X10*3/uL [facility] NRBC Abs Auto 0.000 0.0 - 0.012 X10*3/uL [facility] 04/13/2022 7:33 AM EST 04/13/2022 7:38 AM EST [facility] External Provider LAB BLO OD ORDERABLES Final Result Performing Organization Address [facility] Co de Phone Number [facility] [address] [place] [address] [phone] * (ABNORMAL) GLUCOSE, WHOLE BLOOD (04/13/2022 7:27 AM EST) Glucose, Whole Blood 197(H) 60 - 115 mg/dL [facility] Comment:METER #: [id number] 04/13/2022 7:27 AM EST 04/13/2022 7:31 AM EST [facility] External Provider LAB BLO OD ORDERABLES Final Result Performing Organization Address [facility] de Phone Number [facility] [address] [place] [address] [phone] * HIGH SENSITIVITY TROPONIN I (04/03/2022 8:36 PM EST) TROPONIN I HIGH SENSITIVITY 6.0 <3.5 - 17.0 ng/L [facility] Comment:The Ibrahim high sens itivity Troponin-I results should beused in conjunction with other diagnostic information suchas ECG, clinical observations and information, and patientsymptoms to aid in the diagnosis of UT. 04/03/2022 8:36 PM EST 04/03/2022 8:38 PM EST [facility] External Provider LAB BLO OD ORDERABLES Final Result Performing Organization Address City/[facility]/ZIP Co de Phone Number [facility] [address] [place] [address] [phone] * Lipase (04/03/2022 8:36 PM EST) Lipase 10 8 - 78 U/L [facility] 04/03/2022 8:36 PM EST 04/03/2022 8:38 PM EST [facility] External Provider LAB BLO OD ORDERABLES Final Result Performing Organization Address [facility] Co de Phone Number [facility] [address] [place] [address] [phone] * (ABNORMAL) Basic Metabolic Panel (04/03/2022 8:36 PM EST) Sodium 138 135 - 145 mmol/L [facility] Potassium 3.9 3.3 - 5.1 mmol/L [facility] Chloride 104 96 - 108 mmol/L [facility] Carbon Dioxide 27 22 - 29 mmol/L [facility] Anion Gap 11(L) 12 - 20 [facility] Urea Nitrogen (BUN) 11 9 - 16 mg/dL [facility] Creatinine, Serum 0.74 0.5 - 1.4 mg/dL [facility] Creatinine Clr Calc Pharmacy 70.7 [facility] Comment:Provided height and weight: 157.48 cm,63.503 kg.eGFR (calculated from the MDRD study equation) and eCrCl(calculated from the Cockcroft-Gault equation) are based ondifferent parameters and may not yield comparable results.If eCrCl result is absurd, please check patient'sheight/weight. Estimated Glomerular Filt Rate >60 [facility] Comment:NOTE: For -Am erican individuals, multiply the result by 1.210.Chronic Kidney Disease: Estimated GFR < 60 mL/min/1.64b8Biymre Kidney Disease: Estimated GFR < 15 mL/min/1.73m2 Glucose 246(H) 60 - 115 mg/dL [facility] Calcium 9.0 8.4 - 10.2 mg/dL [facility] 04/03/2022 8:36 PM EST 04/03/2022 8:38 PM EST [facility] External Provider LAB BLO OD ORDERABLES Final Result Performing Organization Address [facility] Co de Phone Number [facility] [address] [place] [address] [phone] * (ABNORMAL) Hepatic Function Panel (04/03/2022 8:36 PM EST) Bilirubin, Total 0.6 0.0 - 1.0 mg/dL [facility] Bilirubin, Direct 0.2 0.0 - 0.5 mg/dL [facility] Aspartate Amino Transferase 10 5 - 31 U/L [facility] Alanine Aminotransferase 8 0 - 31 U/L [facility] Total Protein 5.8(L) 6.5 - 8.0 g/dL [facility] Albumin Level 3.7 3.5 - 5.0 g/dL [facility] Alkaline Phosphatase 76 39 - 117 U/L [facility] 04/03/2022 8:36 PM EST 04/03/2022 8:38 PM EST [facility] External Provider LAB BLO OD ORDERABLES Final Result Performing Organization Address [facility] Co de Phone Number [facility] [address] [place] [address] [phone] * (ABNORMAL) CBC auto differential (04/03/2022 8:36 PM EST) White Blood Count 6.0 4.8 - 10.8 X10*3/uL [facility] Red Blood Count 4.10(L) 4.20 - 5.50 X10*6/uL [facility] Hemoglobin 12.0 12.0 - 16.0 g/dl [facility] Hematocrit 35.6(L) 37.0 - 47.0 % [facility] Mean Corpuscular Volume 86.8 80.0 - 98.0 fL [facility] Mean Corpuscular Hemoglobin 29.3 27.0 - 33.0 pg [facility] Mean Corpuscular HGB Conc 33.7 31.0 - 35.0 g/dl [facility] Red Cell Distribution Width 13.3 11.0 - 16.0 % [facility] Platelet Count 276 160 - 400 X10*3/uL [facility] Mean Platelet Volume 9.2(L) 9.4 - 12.3 fL [facility] Neutrophils Percent Auto 58.2 45 - 73 % [facility] Imm Gran Pct Auto 0.2 0.0 - 0.4 % [facility] Lymphocytes Percent Auto 32.9 20 - 40 % [facility] Monocytes Percent Auto 6.0 2 - 11 % [facility] Eosinophils Percent Auto 2.2 0 - 4 % [facility] Basophils Percent Auto 0.5 0 - 2 % [facility] [facility] NRBC Pct Auto 0.0 0.0 - 0.2 /100WBC [facility] Neutrophils Absolute Auto 3.5 2.0 - 8.3 x10*3/uL [facility] Imm Gran Abs Auto 0.01 0.00 - 0.03 X10*3/uL [facility] Lymphocytes Absolute Auto 2.0 1.2 - 4.9 X10*3/uL [facility] Monocytes Absolute Auto 0.4 0.1 - 1.2 X10*3/uL [facility] Eosinophils Absolute Auto 0.1 0.0 - 0.4 X10*3/uL [facility] Basophils Absolute Auto 0.0 0.0 - 0.2 X10*3/uL [facility] NRBC Abs Auto 0.000 0.0 - 0.012 X10*3/uL [facility] 04/03/2022 8:36 PM EST 04/03/2022 8:38 PM EST [facility] External Provider LAB BLO OD ORDERABLES Final Result Performing Organization Address [facility] Co de Phone Number [facility] [address] [place] [phone] * (ABNORMAL) GLUCOSE, WHOLE BLOOD (04/03/2022 7:56 PM EST) Glucose, Whole Blood 227(H) 60 - 115 mg/dL [facility] Comment:METER #: [id number] 04/03/2022 7:56 PM EST 04/03/2022 8:01 PM EST [facility] External Provider LAB BLO OD ORDERABLES Final Result Performing Organization Address [facility] de Phone Number [facility] [address] [place] [phone] * (ABNORMAL) B Type Natriuretic Peptide (BNP) (03/09/2022 5:39 PM EST) Pathologist [facility] B Type Natriuretic Peptide 125(H) <100 pg/mL [facility] Comment:For those patients w ho are being treated with Natrecor(nesiritide, recombinant BNP), BNP testing should beperformed at least two hours post treatment in order toensure that only endogenous levels of BNP are detected. 03/09/2022 5:39 PM EST 03/09/2022 6:48 PM EST [facility] External Provider LAB BLO OD ORDERABLES Final Result Performing Organization Address [facility] Co de Phone Number [facility] [address] [place] [phone] * SARS-CoV-2 RNA, Influenza A/B, and RSV RNA, Ql NAAT (03/09/2022 5:39 PM EST) Influenza A PCR NEGATIVE Negative [facility] Influenza B PCR NEGATIVE Negative [facility] Resp Syncy Virus RNA Qual PCR NEGATIVE Negative [facility] SARS COV2 PCR NEGATIVE Negative [facility] SARS/Flu/RSV Note See Note [facility] Comment:All test results mus t be [...] use by authorized laboratories.Testing performed on the [employer] GeneXpert utilizingreal-time RT-PCR.All SARS CoV2 and positive influenza A/B results arereported to [facility]. 03/09/2022 5:39 PM EST 03/09/2022 5:43 PM EST [facility] Exter nal Provider LAB MICROBIOLOGY - GENERAL ORDERABLES Final Result Performing Organization Address [facility] de Phone Number [facility] [address] [place] [phone] * HIGH SENSITIVITY TROPONIN I (03/09/2022 5:39 PM EST) Pathologist [facility] TROPONIN I HIGH SENSITIVITY 5.6 <3.5 - 17.0 ng/L [facility] Comment:The Ibrahim high sens itivity Troponin-I results should beused in conjunction with other diagnostic information suchas ECG, clinical observations and information, and patientsymptoms to aid in the diagnosis of UT. 03/09/2022 5:39 PM EST 03/09/2022 5:43 PM EST [facility] External Provider LAB BLO OD ORDERABLES Final Result [facility] [address] [place] [address] [phone] * (ABNORMAL) Comprehensive Metabolic Panel (03/09/2022 5:39 PM EST) Sodium 139 135 - 145 mmol/L [facility] Potassium 3.9 3.3 - 5.1 mmol/L [facility] Chloride 103 96 - 108 mmol/L [facility] Carbon Dioxide 27 22 - 29 mmol/L [facility] Anion Gap 13 12 - 20 [facility] Urea Nitrogen (BUN) 18(H) 9 - 16 mg/dL [facility] Creatinine, Serum 0.95 0.5 - 1.4 mg/dL [facility] Creatinine Clr Calc Pharmacy 53.0 [facility] Comment:Provided height and weight: 152.4 cm,65.2 kg.eGFR (calculated from the MDRD study equation) and eCrCl(calculated from the Cockcroft-Gault equation) are based ondifferent parameters and may not yield comparable results.If eCrCl result is absurd, please check patient'sheight/weight. Estimated Glomerular Filt Rate >60 [facility] Comment:NOTE: For -Am erican individuals, multiply the result by 1.210.Chronic Kidney Disease: Estimated GFR < 60 mL/min/1.32h9Hoervo Kidney Disease: Estimated GFR < 15 mL/min/1.73m2 Glucose 326(H) 60 - 115 mg/dL [facility] Calcium 9.1 8.4 - 10.2 mg/dL [facility] Bilirubin, Total 0.3 0.0 - 1.0 mg/dL [facility] Aspartate Amino Transferase 8 5 - 31 U/L [facility] Alanine Aminotransferase <6 0 - 31 U/L [facility] Total Protein 5.9(L) 6.5 - 8.0 g/dL [facility] Albumin Level 3.6 3.5 - 5.0 g/dL [facility] Alkaline Phosphatase 81 39 - 117 U/L [facility] 03/09/2022 5:39 PM EST 03/09/2022 5:43 PM EST [facility] External Provider LAB BLO OD ORDERABLES Final Result [facility] [address] [place] [phone] * (ABNORMAL) CBC auto differential (03/09/2022 5:39 PM EST) White Blood Count 7.3 4.8 - 10.8 X10*3/uL [facility] Red Blood Count 4.03(L) 4.20 - 5.50 X10*6/uL [facility] Hemoglobin 11.7(L) 12.0 - 16.0 g/dl [facility] Hematocrit 35.1(L) 37.0 - 47.0 % [facility] Mean Corpuscular Volume 87.1 80.0 - 98.0 fL [facility] Mean Corpuscular Hemoglobin 29.0 27.0 - 33.0 pg [facility] Mean Corpuscular HGB Conc 33.3 31.0 - 35.0 g/dl [facility] Red Cell Distribution Width 13.4 11.0 - 16.0 % [facility] Platelet Count 296 160 - 400 X10*3/uL [facility] Mean Platelet Volume 9.3(L) 9.4 - 12.3 fL [facility] Neutrophils Percent Auto 63.9 45 - 73 % [facility] Imm Gran Pct Auto 0.1 0.0 - 0.4 % [facility] Lymphocytes Percent Auto 27.1 20 - 40 % [facility] Monocytes Percent Auto 5.9 2 - 11 % [facility] Eosinophils Percent Auto 2.6 0 - 4 % [facility] Basophils Percent Auto 0.4 0 - 2 % [facility] NRBC Pct Auto 0.0 0.0 - 0.2 /100WBC [facility] Neutrophils Absolute Auto 4.6 2.0 - 8.3 x10*3/uL [facility] Imm Gran Abs Auto 0.01 0.00 - 0.03 X10*3/uL [facility] Lymphocytes Absolute Auto 2.0 1.2 - 4.9 X10*3/uL [facility] Monocytes Absolute Auto 0.4 0.1 - 1.2 X10*3/uL [facility] Eosinophils Absolute Auto 0.2 0.0 - 0.4 X10*3/uL [facility] Basophils Absolute Auto 0.0 0.0 - 0.2 X10*3/uL [facility] NRBC Abs Auto 0.000 0.0 - 0.012 X10*3/uL [facility] 03/09/2022 5:39 PM EST 03/09/2022 5:43 PM EST [facility] External Provider LAB BLO OD ORDERABLES Final Result Performing Organization Address [facility] de Phone Number [facility] [address] [place] [phone] * Prothrombin Time-INR (03/09/2022 5:39 PM EST) Prothrombin Time 10.9 10.0 - 13.1 SEC [facility] INTERNATIONAL NORM RATIO 1.0 0.9 - 1.1 [facility] Comment:INTERNATIONAL NORMAL IZED RATIO (INR) [...] 5:39 PM EST 03/09/2022 5:43 PM EST [facility] External Provider LAB BLO OD ORDERABLES Final Result Performing Organization Address [facility] de Phone Number [facility] [address] [place] [phone] * GLUCOSE, WHOLE BLOOD (03/01/2022 12:41 AM EST) Glucose, Whole Blood 79 60 - 115 mg/dL [facility] Comment:METER #: [id number] 1 03/01/2022 12:4 1 AM EST 03/01/2022 12:46 AM EST [facility] External Provider LAB BLO OD ORDERABLES Final Result Performing Organization Address [facility]/ZIP Co de Phone Number [facility] [address] [place] [address] [phone] * (ABNORMAL) GLUCOSE, WHOLE BLOOD (02/28/2022 10:39 PM EST) Glucose, Whole Blood 273(H) 60 - 115 mg/dL [facility] Comment:METER #: [id number] 1 02/28/2022 10:3 9 PM EST 02/28/2022 10:45 PM EST [facility] External Provider LAB BLO OD ORDERABLES Final Result [facility] [address] [place] [phone] * (ABNORMAL) Comprehensive Metabolic Panel (02/28/2022 9:42 PM EST) Sodium 138 135 - 145 mmol/L [facility] Potassium 4.3 3.3 - 5.1 mmol/L [facility] Comment:Slight Hemolysis Chloride 106 96 - 108 mmol/L [facility] Carbon Dioxide 24 22 - 29 mmol/L [facility] Anion Gap 12 12 - 20 [facility] Urea Nitrogen (BUN) 14 9 - 16 mg/dL [facility] Creatinine, Serum 0.87 0.5 - 1.4 mg/dL [facility] Creatinine Clr Calc Pharmacy 57.2 [facility] Comment:Provided height and weight: 152.4 cm,63.503 kg.eGFR (calculated from the MDRD study equation) and eCrCl(calculated from the Cockcroft-Gault equation) are based ondifferent parameters and may not yield comparable results.If eCrCl result is absurd, please check patient'sheight/weight. Estimated Glomerular Filt Rate >60 [facility] Comment:NOTE: For -Am erican individuals, multiply the result by 1.210.Chronic Kidney Disease: Estimated GFR < 60 mL/min/1.24v6Smnalj Kidney Disease: Estimated GFR < 15 mL/min/1.73m2 Glucose 378(HH) 60 - 115 mg/dL [facility] Comment:Critical value for t est(s): GLUR Results called to and readback by: EULA Person calling: HASTINS Date: 02/28/22Time: 2220 Calcium 9.3 8.4 - 10.2 mg/dL [facility] Bilirubin, Total 0.3 0.0 - 1.0 mg/dL [facility] Aspartate Amino Transferase 12 5 - 31 U/L [facility] Comment:Slight Hemolysis Alanine Aminotransferase 7 0 - 31 U/L [facility] Total Protein 6.7 6.5 - 8.0 g/dL [facility] Albumin Level 3.9 3.5 - 5.0 g/dL [facility] Alkaline Phosphatase 83 39 - 117 U/L [facility] 02/28/2022 9:42 PM EST 02/28/2022 9:48 PM EST us [facility] External Provider LAB BLO OD ORDERABLES Final Result [facility] [address] [place] [address] [phone] * HIGH SENSITIVITY TROPONIN I (02/28/2022 9:42 PM EST) TROPONIN I HIGH SENSITIVITY 7.1 <3.5 - 17.0 ng/L [facility] Comment:The Ibrahim high sens itivity Troponin-I results should beused in conjunction with other diagnostic information suchas ECG, clinical observations and information, and patientsymptoms to aid in the diagnosis of UT. 02/28/2022 9:42 PM EST 02/28/2022 9:48 PM EST [facility] External Provider LAB BLO OD ORDERABLES Final Result Performing Organization Address [facility]/State/[facility] Co de Phone Number [facility] [address] [place] [phone] * (ABNORMAL) CBC (02/28/2022 9:42 PM EST) White Blood Count 7.0 4.8 - 10.8 X10*3/uL [facility] Red Blood Count 4.22 4.20 - 5.50 X10*6/uL [facility] Hemoglobin 12.1 12.0 - 16.0 g/dl [facility] Hematocrit 36.4(L) 37.0 - 47.0 % [facility] Mean Corpuscular Volume 86.3 80.0 - 98.0 fL [facility] Mean Corpuscular Hemoglobin 28.7 27.0 - 33.0 pg [facility] Mean Corpuscular HGB Conc 33.2 31.0 - 35.0 g/dl [facility] Red Cell Distribution Width 13.3 11.0 - 16.0 % [facility] Platelet Count 311 160 - 400 X10*3/uL [facility] Mean Platelet Volume 9.7 9.4 - 12.3 fL [facility] NRBC Pct Auto 0.0 0.0 - 0.2 /100WBC [facility] NRBC Abs Auto 0.000 0.0 - 0.012 X10*3/uL [facility] 02/28/2022 9:42 PM EST 02/28/2022 9:48 PM EST [facility] External Provider LAB BLO OD ORDERABLES Final Result Performing Organization Address City/[facility]/ZIP Co de Phone Number [facility] [address] [place] [phone] * (ABNORMAL) GLUCOSE, WHOLE BLOOD (02/28/2022 9:38 PM EST) Glucose, Whole Blood 379(HH) 60 - 115 mg/dL [facility] Comment:METER #: [id number] 1 02/28/2022 9:38 PM EST 02/28/2022 9:48 PM EST [facility] External Provider LAB BLO OD ORDERABLES Final Result Performing Organization Address [facility] de Phone Number [facility] [address] [place] [phone] * (ABNORMAL) Urinalysis, Complete, with Reflex to Culture (02/22/2022 3:20 PM EST) Color Urine Yellow [facility] Appearance Urine Cloudy [facility] PH 6.5 5.0 - 9.0 [facility] Glucose Urine UA >=1000(A) Negative mg/dL [facility] Urine Blood Negative Negative [facility] Specific [place] - Urine 1.020 1.005 - 1.025 [facility] Urine Protein 100 (2+)(A) Neg-Trace mg/dL [facility] Urine Ketones Negative Negative mg/dL [facility] Nitrite Urine Negative Negative [facility] Leukocyte Esterase Urine Small (1+)(A) Negative [facility] RBC Urine 3-5(A) 0 - 2 /HPF [facility] Urine WBC 0-5 0 - 5 /HPF [facility] Urine Squamous Epithelial Cell 0-2 0 - 2 /HPF [facility] Urine Bacteria None Seen None Seen [facility] Hyaline Casts, Urine 3-5 0 - 2 /LPF [facility] 02/22/2022 3:20 PM EST 02/22/2022 3:27 PM EST Narrative [facility] - 02/22/2022 4:14 PM EST [id number], Clean Catch [facility] External Provider LAB URI NE ORDERABLES Final Result Performing Organization Address [facility]/ZIP Co de Phone Number [facility] [address] [place] [address] [phone] * SARS-CoV-2 RNA, Influenza A/B, and RSV RNA, Ql NAAT (02/22/2022 3:14 PM EST) Pathologist [facility] Influenza A PCR NEGATIVE Negative [facility] Influenza B PCR NEGATIVE Negative [facility] Resp Syncy Virus RNA Qual PCR NEGATIVE Negative [facility] SARS COV2 PCR NEGATIVE Negative [facility] SARS/Flu/RSV Note See Note [facility] Comment:All test results mus t be [...] use by authorized laboratories.Testing performed on the [employer] GeneXpert utilizingreal-time RT-PCR.All SARS CoV2 and positive influenza A/B results arereported to [facility]. 02/22/2022 3:14 PM EST 02/22/2022 3:19 PM EST [facility] Exter nal Provider LAB MICROBIOLOGY - GENERAL ORDERABLES Final Result Performing Organization Address [facility]/ZIP Co de Phone Number [facility] [address] [place] [phone] * HIGH SENSITIVITY TROPONIN I (02/22/2022 3:14 PM EST) Pathologist [facility] TROPONIN I HIGH SENSITIVITY 8.8 <3.5 - 17.0 ng/L [facility] Comment:The Ibrahim high sens itivity Troponin-I results should beused in conjunction with other diagnostic information suchas ECG, clinical observations and information, and patientsymptoms to aid in the diagnosis of UT. 02/22/2022 3:14 PM EST 02/22/2022 3:19 PM EST [facility] External Provider LAB BLO OD ORDERABLES Final Result Performing Organization Address City/[facility]/ZIP Co de Phone Number [facility] [address] [place] [phone] * Magnesium (02/22/2022 3:14 PM EST) Pathologist [facility] Magnesium 1.6 1.6 - 2.6 mg/dL [facility] 02/22/2022 3:14 PM EST 02/22/2022 3:19 PM EST [facility] External Provider LAB BLO OD ORDERABLES Final Result Performing Organization Address [facility] Co de Phone Number [facility] [address] [place] [phone] * (ABNORMAL) Basic Metabolic Panel (02/22/2022 3:14 PM EST) Pathologist [facility] Sodium 136 135 - 145 mmol/L [facility] Potassium 4.4 3.3 - 5.1 mmol/L [facility] Chloride 103 96 - 108 mmol/L [facility] Carbon Dioxide 27 22 - 29 mmol/L [facility] Anion Gap 10(L) 12 - 20 [facility] Urea Nitrogen (BUN) 20(H) 9 - 16 mg/dL [facility] Creatinine, Serum 0.99 0.5 - 1.4 mg/dL [facility] Creatinine Clr Calc Pharmacy 50.6 [facility] Comment:Provided height and weight: 152.4 cm,64.5 kg.eGFR (calculated from the MDRD study equation) and eCrCl(calculated from the Cockcroft-Gault equation) are based ondifferent parameters and may not yield comparable results.If eCrCl result is absurd, please check patient'sheight/weight. Estimated Glomerular Filt Rate 57 [facility] Comment:NOTE: For -Am erican individuals, multiply the result by 1.210.Chronic Kidney Disease: Estimated GFR < 60 mL/min/1.29v8Txzjri Kidney Disease: Estimated GFR < 15 mL/min/1.73m2 Glucose 343(H) 60 - 115 mg/dL [facility] Calcium 9.3 8.4 - 10.2 mg/dL [facility] 02/22/2022 3:14 PM EST 02/22/2022 3:19 PM EST [facility] External Provider LAB BLO OD ORDERABLES Final Result Performing Organization Address [facility] de Phone Number [facility] [address] [place] [phone] * (ABNORMAL) Hepatic Function Panel (02/22/2022 3:14 PM EST) Bilirubin, Total 0.4 0.0 - 1.0 mg/dL [facility] Bilirubin, Direct <0.2 0.0 - 0.5 mg/dL [facility] Aspartate Amino Transferase 10 5 - 31 U/L [facility] Alanine Aminotransferase 6 0 - 31 U/L [facility] Total Protein 6.1(L) 6.5 - 8.0 g/dL [facility] Albumin Level 3.7 3.5 - 5.0 g/dL [facility] Alkaline Phosphatase 82 39 - 117 U/L [facility] 02/22/2022 3:14 PM EST 02/22/2022 3:19 PM EST [facility] External Provider LAB BLO OD ORDERABLES Final Result Performing Organization Address [facility] Co de Phone Number [facility] [address] [place] [phone] * (ABNORMAL) CBC auto differential (02/22/2022 3:14 PM EST) White Blood Count 5.6 4.8 - 10.8 X10*3/uL [facility] Red Blood Count 3.99(L) 4.20 - 5.50 X10*6/uL [facility] Hemoglobin 11.8(L) 12.0 - 16.0 g/dl [facility] Hematocrit 35.1(L) 37.0 - 47.0 % [facility] Mean Corpuscular Volume 88.0 80.0 - 98.0 fL [facility] Mean Corpuscular Hemoglobin 29.6 27.0 - 33.0 pg [facility] Mean Corpuscular HGB Conc 33.6 31.0 - 35.0 g/dl [facility] Red Cell Distribution Width 13.2 11.0 - 16.0 % [facility] Platelet Count 265 160 - 400 X10*3/uL [facility] Mean Platelet Volume 10.0 9.4 - 12.3 fL [facility] Neutrophils Percent Auto 49.1 45 - 73 % [facility] Imm Gran Pct Auto 0.4 0.0 - 0.4 % [facility] Lymphocytes Percent Auto 40.1(H) 20 - 40 % [facility] Monocytes Percent Auto 6.1 2 - 11 % [facility] Eosinophils Percent Auto 3.4 0 - 4 % [facility] Basophils Percent Auto 0.9 0 - 2 % [facility] NRBC Pct Auto 0.0 0.0 - 0.2 /100WBC [facility] Neutrophils Absolute Auto 2.7 2.0 - 8.3 x10*3/uL [facility] Imm Gran Abs Auto 0.02 0.00 - 0.03 X10*3/uL [facility] Lymphocytes Absolute Auto 2.2 1.2 - 4.9 X10*3/uL [facility] Monocytes Absolute Auto 0.3 0.1 - 1.2 X10*3/uL [facility] Eosinophils Absolute Auto 0.2 0.0 - 0.4 X10*3/uL [facility] Basophils Absolute Auto 0.1 0.0 - 0.2 X10*3/uL [facility] NRBC Abs Auto 0.000 0.0 - 0.012 X10*3/uL [facility] 02/22/2022 3:14 PM EST 02/22/2022 3:19 PM EST [facility] External Provider LAB BLO OD ORDERABLES Final Result Performing Organization Address [facility]/ZIP Co de Phone Number [facility] [address] [place] [phone] * Culture, Urine, Routine (02/22/2022 12:00 AM EST) 02/22/2022 02/22/2022 5:2 3 PM EST Comment:UACC Narrative [facility] - 02/24/2022 11:31 AM EST Urine Culture Report Result Urine Culture 10,000 to 50,000 cfu/ml Urine Culture Mixed bacterial benton characteristic of Urine Culture urogenital contamination. Specimen Source: Urine clean catch [facility] Exter nal Provider LAB MICROBIOLOGY - GENERAL ORDERABLES Final Result Performing Organization Address [facility] Co de Phone Number [facility] [address] [place] [phone] documented in this encounter Visit Diagnoses Not on filedocumented in this encounter Care Teams Physiognomist Relationship Specialty Start Date End Date Radha Jamison DO [address] [place] [address] PCP - General Family Medicine 01/26/12 Abdias Murillo, Camron [address] [place] [address] Pharmacist Internal Medicine 03/21/22 08/30/23 Nelia Sullivan PharmD [address] [place] [address] Pharmacist Internal Medicine 08/31/23 Laurel Monterroso Contract AnalystCasino Dealer 10/27/22 Saige Aguilar 09/26/23 documented as of this encounter
--- OUTSIDE RECORDS SUMMARY | 2024-06-13 12:07 | XMS_ITS | Encounter Summary ---
Author Organization [employer] Address [address] [facility] [address] [place] [address] Care Team Providers Care As400 Administrator Name Role Phone Radha Jamison DO Primary Care Provider [phone] Abdias Murillo PharmD Unavailable Unavail able Nelia Sullivan PharmD Unavailable [phone] Reason for Visit * Reason Onset Date Comments Appointment Request 03/09/2023 Encounter Details Date Type Department Care Team ([facility] st Contact Info) Description 03/09/2023 Telephone [facility] [address] [place], [place] [id number] Radha Jamison DO [address] [place] [address] Appointment Request Social History Tobacco Use Types [...] denied any concerns. Please contact pt at [phone] documented in this encounter Plan of Treatment Upcoming Encounters Date Type Department Care Team (Late st Contact Info) Description 06/14/2024 10:00 AM EDT Medication Management [facility] [address] [place] [phone] Nelia Sullivan PharmD [address] [place] [address] 06/18/2024 11:45 AM EDT Office Visit [facility] [address] [place] [phone] Radha Jamison DO [address] [place] [address] documented as of this encounter Goals Goal [...] documented as of this encounter Care Teams As400 Administrator Relationship Specialty Start Date End Date Radha Jamison DO [address] [place] [address] PCP - General Family Medicine 01/26/12 Abdias Murillo, KeithD [address] [place] [address] Pharmacist Internal Medicine 03/21/22 08/30/23 Nelia Sullivan PharmD [address] [place] [address] Pharmacist Internal Medicine 08/31/23 Laurel Monterroso Lace Machine OperatorAssistant Manager Retail 10/27/22 Saige Aguilar 09/26/23 documented as of this encounter
--- OUTSIDE RECORDS SUMMARY | 2024-06-13 12:08 | XMS_ITS | Clinical Summary ---
Author Organization Unknown Care Team Providers Care Lead Maintenance Technician Name Role Phone ADILIA FELIPE, VIOLETA Unavailable Unavailable SURJIT DAVID, ERIC Unavailable Unavailable Payers Payer Name Policy Type Policy Number Effective Date Expira tion Date MEDICAID [facility] [id number] Problems Condition Name Condition Details Condition Category Status Onset Date Resolution Date Last Treatment Date Treating Clinician Comments ESSENTIAL (PRIMARY) HYPERTENSION Active 09-21 00:00: 00 ATHSCL HEART DISEASE OF [place] CORONARY ARTERY W/O ANG PCTRS Active 09-21 [...] CIGARETTES, UNCOMPLICATE D Active 09-21 00:00: 00 CORRECTION (CURRENT) USE OF INSULIN Active 09-21 00:00: 00 DRY KILN LOADER (CURRENT) USE OF ANTITHROMBOT ICS/ANTIPLAT ELETS Active [...] 60 mg tablet,exte nded release 24 hr 09-17 00:00: 00 Yes [id number] 60 mg AT BEDTIME 60 mg AT BEDTIME (route: oral) Med Classific ation: Cardiovas cular Therapy Agents oxycodone 5 mg tablet 09-04 00:00: 00 11-19 23:59 :00 No [id number] Unavailable 5 mg FIVE TIMES DAILY NEEDED 5 mg FIVE TIMES DAILY NEEDED (route: oral) Med Classific ation: Analgesic , Anti-infl ammatory or Antipyret ic gabapentin 600 mg tablet 09-03 00:00: 00 09-25 23:59 :00 No [id number] 600 mg 2 TIMES DAILY 600 mg 2 TIMES DAILY (route: oral) Med Classific ation: Central Nervous System Agents nicotine 21 mg/24 hr daily transdermal patch 08-30 00:00: 00 Yes [id number] Unavailable 21 mg DAILY 21 mg DAILY (route: transderma l) Med Classific ation: Chemical Dependenc y, Agents to Treat Alcohol Prep Pads 08-29 00:00: 00 05-18 23:59 :00 No [id number] 1 pads, medicat ed DIRECTED THREE TIMES DAILY AND NEEDED 1 pads, medicated DIRECTED THREE TIMES DAILY AND NEEDED (route: topical) Med Classific ation: Antisepti cs and Disinfect ants amitriptyli ne 50 mg tablet 08-29 00:00: 00 Yes [id number] Unavailable 50 mg AT BEDTIME 50 mg AT BEDTIME (route: oral) Med Classific ation: Central Nervous System Agents Asmanex HFA 100 mcg/actuati on aerosol inhaler 08-29 00:00: 00 Yes [id number] 2 puff TWICE DAILY 2 puff TWICE DAILY (route: inhalation ) Med Classific ation: Respirato ry Therapy Agents atorvastati n 80 mg tablet 08-29 00:00: 00 Yes [id number] Unavailable 80 mg BEDTIME 80 mg BEDTIME (route: oral) Med Classific ation: Cardiovas cular Therapy Agents carvedilol 25 mg tablet 08-29 00:00: 00 Yes [id number] Unavailable 25 mg TWICE DAILY 25 mg TWICE DAILY (route: oral) Med Classific ation: Cardiovas cular Therapy Agents clopidogrel 75 mg tablet 08-29 00:00: 00 Yes [id number] 75 mg EVERY AM 75 mg EVERY AM (route: oral) Med Classific ation: Hematolog ical Agents docusate sodium 100 mg capsule 08-29 00:00: 00 09-25 23:59 :00 No [id number] Unavailable 100 mg TWICE DAILY 100 mg TWICE DAILY (route: oral) Med Classific ation: Gastroint estinal Therapy Agents escitalopra m 20 mg tablet 08-29 00:00: 00 Yes [id number] Unavailable 20 mg EVERY PM 20 mg EVERY PM (route: oral) Med Classific ation: Central Nervous System Agents FeroSul 325 mg (65 mg iron) tablet 08-29 00:00: 00 09-25 23:59 :00 No [id number] Unavailable 325 mg TWICE DAILY IN THE MORNING AND AT BEDTIME 325 mg TWICE DAILY IN THE MORNING AND AT BEDTIME (route: oral) Med Classific ation: Electroly te Balance-N utritiona l Products gabapentin 800 mg tablet 08-29 00:00: 00 Yes [id number] 800 mg 2 TIMES DAILY 800 mg 2 TIMES DAILY (route: oral) Med Classific ation: Central Nervous System Agents hydralazine 25 mg tablet 08-29 00:00: 00 Yes [id number] Unavailable 25 mg 3 TIMES DAILY 25 mg 3 TIMES DAILY (route: oral) Med Classific ation: Cardiovas cular Therapy Agents hydralazine 50 mg tablet 08-29 00:00: 00 09-25 23:59 :00 No [id number] Unavailable 50 mg THREE TIMES DAILY IN THE MORNING AT 50 mg THREE TIMES DAILY IN THE MORNING AT (route: oral) Med Classific ation: Cardiovas cular Therapy Agents mirtazapine 45 mg tablet 08-29 00:00: 00 Yes [id number] Unavailable 45 mg AT BEDTIME 45 mg AT BEDTIME (route: oral) Med Classific ation: Central Nervous System Agents omeprazole 20 mg capsule,del ayed release 08-29 00:00: 00 Yes [id number] 20 mg TWICE DAILY 20 mg TWICE DAILY (route: oral) Med Classific ation: Gastroint estinal Therapy Agents lisinopril 40 mg tablet 09-25 00:00: 00 Yes [id number] 40 mg DAILY 40 mg DAILY (route: oral) Med Classific ation: Cardiovas cular Therapy Agents metformin 1,000 mg tablet 09-25 00:00: 00 Yes [id number] 1000 mg 2 TIMES DAILY 1000 mg 2 TIMES DAILY (route: oral) Med Classific ation: Endocrine multivitami n tablet 09-25 00:00: 00 Yes [id number] 1 tablet DAILY 1 tablet DAILY (route: oral) Med Classific ation: Electroly te Balance-N utritiona l Products nifedipine ER 60 mg tablet,exte nded release 09-25 00:00: 00 Yes [id number] 60 mg EVERY PM 60 mg EVERY PM (route: oral) Med Classific ation: Cardiovas cular Therapy Agents pioglitazon e 15 mg tablet 09-25 00:00: 00 Yes [id number] 15 mg DAILY 15 mg DAILY (route: oral) Med Classific ation: Endocrine Tresiba FlexTouch U-100 insulin 100 unit/mL (3 mL) subcutane s pen 09-25 00:00: 00 Yes [id number] 10 In unit DAILY 10 In unit DAILY (route: subcutaneo ) Med Classific ation: Endocrine Vital Signs Vital Name Observation Time Observation Value Commen ts Temperature 2024-06-12 13:16:00.000 97.8 [degF] Temperature 2024-06-11 12:15:00.000 97.5 [degF] Temperature 2024-06-10 11:45:00.000 97.7 [degF] Temperature 2024-06-09 11:01:00.000 97.5 [degF] Temperature 2024-06-08 11:13:00.000 97.9 [degF] Temperature 2024-06-07 13:24:00.000 97.5 [degF] Temperature 2024-06-06 16:23:00.000 97.5 [degF] Temperature 2024-06-05 12:28:00.000 97.7 [degF] Temperature 2024-06-04 11:39:00.000 97.5 [degF] Temperature 2024-06-03 14:17:00.000 97.5 [degF] Temperature 2024-06-02 12:57:00.000 97.5 [degF] Temperature 2024-06-01 12:13:00.000 97.5 [degF] Temperature 2024-05-31 13:17:00.000 97.5 [degF] Temperature 2024-05-30 12:50:00.000 98.1 [degF] Temperature 2024-05-29 13:39:00.000 97.3 [degF] Temperature 2024-05-28 12:00:00.000 98 [degF] Temperature 2024-05-27 12:31:00.000 97.7 [degF] Temperature 2024-05-26 11:50:00.000 97.5 [degF] Temperature 2024-05-25 13:10:00.000 97.9 [degF] Temperature 2024-05-24 13:35:00.000 97.5 [degF] Temperature 2024-05-23 12:36:00.000 97.5 [degF] Plan of Treatment Planned Activity Planned [...] PLANNING.] Future Scheduled Test SKILLED NU RSE TO O/A OF PATIENTS MENTAL/BEHAVIORAL STATUS, ASSESS VITAL SIGNS [code = SKILLED NURSE TO O/A OF PATIENTS MENTAL/BEHAVIORAL STATUS, ASSESS VITAL SIGNS ] Future Scheduled Test CLINICAL S UMMARY (SOC/RECERT, 10 DAY, 60 DAY): THE PATIENT IS RECEIVING HOMECARE DUE TO NEW ONSET/EXACERBATION OF: YES RECENT HOSPITALIZATION/INPATIENT ADMISSION RELATED TO: YES NEW OR CHANGED MEDICATIONS PERTINENT TO THE PLAN OF CARE: YES PATIENT LIVING SITUATION/CAREGIVER STATUS: WITH FAMILY SUMMARIZE SKILLED NEED: MEDICATION MANAGEMENT, VITAL SIGN ASSESSMENT, MENTAL STATUS ASSESSMENT AND DIAGNOSIS MANAGEMENT [code = CLINICAL SUMMARY (SOC/RECERT, 10 DAY, 60 DAY): THE PATIENT IS RECEIVING HOMECARE DUE TO NEW ONSET/EXACERBATION OF: YES RECENT HOSPITALIZATION/INPATIENT ADMISSION RELATED TO: YES NEW OR CHANGED MEDICATIONS PERTINENT TO THE PLAN OF CARE: YES PATIENT LIVING SITUATION/CAREGIVER STATUS: WITH FAMILY SUMMARIZE SKILLED NEED: MEDICATION MANAGEMENT, VITAL SIGN ASSESSMENT, MENTAL STATUS ASSESSMENT AND DIAGNOSIS MANAGEMENT ] Future Scheduled Test SKILLED NU RSE WILL MAINTAIN SITUATIONAL AWARENESS FOR SAFETY AND WILL NOTIFY CLINICAL ELECTROTYPER HELPER AND PHYSICIAN/PROVIDER WITH ANY CHANGE IN CONDITION. [code = SKILLED NURSE WILL MAINTAIN SITUATIONAL AWARENESS FOR SAFETY AND WILL NOTIFY CLINICAL ELECTROTYPER HELPER AND PHYSICIAN/PROVIDER WITH ANY CHANGE IN CONDITION.] [...] MEDICATIONS DAILY AND PRE-POUR MEDICATIONS TILL NEXT SNF PER MEDICATION LIST. [code = SKILLED NURSE TO ADMINISTER MEDICATIONS DAILY AND PRE-POUR MEDICATIONS TILL NEXT SNF PER MEDICATION LIST.] Future Scheduled Test SKILLED [...] - LOWERING MY B LOOD PRESSURE Goal 2024-05-18 Patient Goal - LOWERING MY B LOOD PRESSURE Goal Patient Goal - LOWERING MY B LOOD PRESSURE Goal Provider Goal - A PLAN OF CARE WILL BE ESTABLISHED THAT MEETS PATIENT'S SNF NEEDS AND INCLUDES PATIENT GOAL FOR HOME [...] DATE OF DISCHARGE. Goal Provider Goal - ALTERED MENTAL/BEHAVIORAL STATUS WILL BE IDENTIFIED PROMPTLY AND INTERVENTION INITIATED QUICKLY TO MINIMIZE ASSOCIATED RISKS THROUGHOUT CERTIFICATION PERIOD. Goal Provider Goal - PATIENT WILL REMAIN SAFE, FREE FROM HOSPITALIZATION, AND ADHERE TO THE SKILLED NURSES PLAN OF CARE THROUGHOUT THE CERTIFICATION PERIOD. Goal Provider Goal [...] End Date/Time Encounter Type Admission Type Attending [facility] Care Department Encounter ID Discharge Date Discharge Status Discharge Condition Discharge Reason Percent Goals Met 2023-09-26 00:00:00 2024-07-21 00:00:00 Outpatient RECERTIFIC ATION ERIC EDDY [facility] [id number]
--- OUTSIDE RECORDS SUMMARY | 2024-06-13 12:08 | XMS_ITS | Clinical Summary ---
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/O ANG PCTRS Active 09-21 [...] CIGARETTES, UNCOMPLICATE D Active 09-21 00:00: 00 LONG-TERM (CURRENT) USE OF INSULIN Active 09-21 00:00: 00 CLINICAL SOCIOLOGIST (CURRENT) USE OF ANTITHROMBOT ICS/ANTIPLAT ELETS Active [...] release 24 hr 09-17 00:00: 00 Yes [id number] 60 mg AT BEDTIME 60 mg AT BEDTIME (route: oral) Med Classific ation: Cardiovas cular Therapy Agents oxycodone 5 mg tablet 09-04 00:00: 00 11-19 23:59 :00 No [id number] Unavailable 5 mg FIVE TIMES DAILY NEEDED 5 mg FIVE TIMES DAILY NEEDED (route: oral) Med Classific ation: Analgesic , Anti-infl ammatory or Antipyret ic gabapentin 600 mg tablet 09-03 00:00: 00 09-25 23:59 :00 No [id number] 600 mg 2 TIMES DAILY 600 mg 2 TIMES DAILY (route: oral) Med Classific ation: Central Nervous System Agents nicotine 21 mg/24 hr daily transdermal patch 08-30 00:00: 00 Yes [id number] Unavailable 21 mg DAILY 21 mg DAILY (route: transderma l) Med Classific ation: Chemical Dependenc y, Agents to Treat Alcohol Prep Pads 08-29 00:00: 00 05-18 23:59 :00 No [id number] 1 pads, medicat ed DIRECTED THREE TIMES DAILY AND NEEDED 1 pads, medicated DIRECTED THREE TIMES DAILY AND NEEDED (route: topical) Med Classific ation: Antisepti cs and Disinfect ants amitriptyli ne 50 mg tablet 08-29 00:00: 00 Yes [id number] Unavailable 50 mg AT BEDTIME 50 mg AT BEDTIME (route: oral) Med Classific ation: Central Nervous System Agents Asmanex HFA 100 mcg/actuati on aerosol inhaler 08-29 00:00: 00 Yes [id number] 2 puff TWICE DAILY 2 puff TWICE DAILY (route: inhalation ) Med Classific ation: Respirato ry Therapy Agents atorvastati n 80 mg tablet 08-29 00:00: 00 Yes [id number] Unavailable 80 mg BEDTIME 80 mg BEDTIME (route: oral) Med Classific ation: Cardiovas cular Therapy Agents carvedilol 25 mg tablet 08-29 00:00: 00 Yes [id number] Unavailable 25 mg TWICE DAILY 25 mg TWICE DAILY (route: oral) Med Classific ation: Cardiovas cular Therapy Agents clopidogrel 75 mg tablet 08-29 00:00: 00 Yes [id number] 75 mg EVERY AM 75 mg EVERY AM (route: oral) Med Classific ation: Hematolog ical Agents docusate sodium 100 mg capsule 08-29 00:00: 00 09-25 23:59 :00 No [id number] Unavailable 100 mg TWICE DAILY 100 mg TWICE DAILY (route: oral) Med Classific ation: Gastroint estinal Therapy Agents escitalopra m 20 mg tablet 08-29 00:00: 00 Yes [id number] Unavailable 20 mg EVERY PM 20 mg EVERY PM (route: oral) Med Classific ation: Central Nervous System Agents FeroSul 325 mg (65 mg iron) tablet 08-29 00:00: 00 09-25 23:59 :00 No [id number] Unavailable 325 mg TWICE DAILY IN THE MORNING AND AT BEDTIME 325 mg TWICE DAILY IN THE MORNING AND AT BEDTIME (route: oral) Med Classific ation: Electroly te Balance-N utritiona l Products gabapentin 800 mg tablet 08-29 00:00: 00 Yes [id number] 800 mg 2 TIMES DAILY 800 mg 2 TIMES DAILY (route: oral) Med Classific ation: Central Nervous System Agents hydralazine 25 mg tablet 08-29 00:00: 00 Yes [id number] Unavailable 25 mg 3 TIMES DAILY 25 mg 3 TIMES DAILY (route: oral) Med Classific ation: Cardiovas cular Therapy Agents hydralazine 50 mg tablet 08-29 00:00: 00 09-25 23:59 :00 No [id number] Unavailable 50 mg THREE TIMES DAILY IN THE MORNING AT 50 mg THREE TIMES DAILY IN THE MORNING AT (route: oral) Med Classific ation: Cardiovas cular Therapy Agents mirtazapine 45 mg tablet 08-29 00:00: 00 Yes [id number] Unavailable 45 mg AT BEDTIME 45 mg AT BEDTIME (route: oral) Med Classific ation: Central Nervous System Agents omeprazole 20 mg capsule,del ayed release 08-29 00:00: 00 Yes [id number] 20 mg TWICE DAILY 20 mg TWICE DAILY (route: oral) Med Classific ation: Gastroint estinal Therapy Agents lisinopril 40 mg tablet 09-25 00:00: 00 Yes [id number] 40 mg DAILY 40 mg DAILY (route: oral) Med Classific ation: Cardiovas cular Therapy Agents metformin 1,000 mg tablet 09-25 00:00: 00 Yes [id number] 1000 mg 2 TIMES DAILY 1000 mg 2 TIMES DAILY (route: oral) Med Classific ation: Endocrine multivitami n tablet 09-25 00:00: 00 Yes [id number] 1 tablet DAILY 1 tablet DAILY (route: oral) Med Classific ation: Electroly te Balance-N utritiona l Products nifedipine ER 60 mg tablet,exte nded release 09-25 00:00: 00 Yes [id number] 60 mg EVERY PM 60 mg EVERY PM (route: oral) Med Classific ation: Cardiovas cular Therapy Agents pioglitazon e 15 mg tablet 09-25 00:00: 00 Yes [id number] 15 mg DAILY 15 mg DAILY (route: oral) Med Classific ation: Endocrine Tresiba FlexTouch U-100 insulin 100 unit/mL (3 mL) subcutane s pen 09-25 00:00: 00 Yes [id number] 10 In unit DAILY 10 In unit [...] AWARENESS FOR SAFETY AND WILL NOTIFY CLINICAL BUSINESS BANKING SALES ASSISTANT AND PHYSICIAN/PROVIDER WITH ANY CHANGE IN CONDITION. [code = SKILLED NURSE WILL MAINTAIN SITUATIONAL AWARENESS FOR SAFETY AND WILL NOTIFY CLINICAL BUSINESS BANKING SALES ASSISTANT AND PHYSICIAN/PROVIDER WITH ANY CHANGE IN CONDITION.] [...] MEDICATIONS TILL NEXT [facility] PER MEDICATION LIST. [code = SKILLED NURSE TO ADMINISTER MEDICATIONS DAILY AND PRE-POUR MEDICATIONS TILL NEXT [facility] PER MEDICATION LIST.] Future Scheduled Test SKILLED [...] End Date/Time Encounter Type Admission Type Attending [facility] Care Department Encounter ID Discharge Date Discharge Status Discharge Condition Discharge Reason Percent Goals Met 2023-09-26 00:00:00 2024-07-21 00:00:00 Outpatient RECERTIFIC ATION ERIC EDDY [facility] [id number]
== END 2024-06-13 10:47 | disposition home or self-care (01) ==
LOC: HO.HVS 10:32
PROVIDERS: PCP Family Medicine; Visit Provider Surgery Vascular Surgery
DX: I73.9 Peripheral vascular disease, unspecified (principal); I65.23 Occlusion and stenosis of bilateral carotid arteries
CPT/HCPCS: 99214

== ENCOUNTER → 2024-06-13 10:32 | Outpatient (BNVA) | payer MEDICAID, SELFPAY | PROVIDERS: PCP Family Medicine; Visit Provider Surgery Vascular Surgery | DX: I65.23 Occlusion and stenosis of bilateral carotid arteries (principal); I73.9 Peripheral vascular disease, unspecified; F17.210 Nicotine dependence, cigarettes, uncomplicated | CPT/HCPCS: 99212 ==

== ENCOUNTER 2024-07-24 10:29 | Outpatient (REF) | payer MEDICAID, SELFPAY ==
--- OUTSIDE RECORDS SUMMARY | 2024-07-24 11:57 | XMS_ITS | Encounter Summary ---
Author Organization [employer] Address [address] [facility] [address] [place] [address] Care Team Providers Care Screening Technician Name Role Phone Radha Jamison DO Primary Care Provider [phone] Nelia Sullivan PharmD Unavailable [phone] Reason for Visit * Reason Comments Med Refill Encounter Details Date Type Department Care Team ([facility] st Contact Info) Description 02/29/[address] [facility] [address] [place] [address] Radha Jamison DO [address] [place] [address] Chronic bilateral low back pain, unspecified whether sciatica present Social History Tobacco Use Types Packs/Day Years Used Date Smoking Tobacco: Every Day Cigarettes 1 44.9 Started: 08/31/1979 Passive Smoke Exposure: Current Smokeless [...] the past 12 months, has t he [employer], gas, oil or water [facility] threatened to shut off services in your [...] until seen by PCP or seen by COMMUNITY SPORTS COORDINATOR. Scheduled COMMUNITY SPORTS COORDINATOR 03/05/24. documented in this encounter Plan of Treatment Not on file documented as of this encounter Goals Goal Patient Goal Type Associated Problems Recent Progress Patient-Stated? Author Record your blood pressure once per day Blood Pressure No Puia, Nelia, PharmD Blood Pressure < 140/90 Blood Pressure 138/68(2024 10:26 AM EDT) No Puia, Nelia, PharmD Smoking cessation General No Puia, Nelia, PharmD Patient will adhere to medication regimen General No Puia, Nelia, PharmD Hemoglobin A1c < 7 Result Component 10.3(05/25/19 12:32 PM EDT) No DellogonoRodis, PharmD Record your blood sugar as directed [...] documented as of this encounter Care Teams Screening Technician Relationship Specialty Start Date End Date Radha Jamison DO [address] [place], [place] [id number] PCP - General Family Medicine 01/26/12 Nelia Sullivan PharmD [address] [place] [address] Pharmacist Internal Medicine 08/31/23 Laurel Monterroso Home Improvement InstallerCell Maker 10/27/22 Saige Aguilar 09/26/23 documented as of this encounter
[2024-07-24 12:00] LABS: Alanine Aminotransferase < 6 U/L (0-31); Albumin Level 3.1 g/dL (3.5-5.0); Alkaline Phosphatase 87 U/L (39-117); Anion Gap 9 (12-20); Aspartate Amino Transferase 13 U/L (5-31); Bilirubin Direct < 0.2 mg/dL (0.0-0.5); Bilirubin Total 0.2 mg/dL (0.0-1.0); Blood Urea Nitrogen 12 mg/dL (9-16); Calcium 8.5 mg/dL (8.4-10.2); Carbon Dioxide 28 mmol/L (22-29); Chloride 107 mmol/L (96-108); Cholesterol 234 mg/dL (<200); Estimated Glomerular Filt Rate > 60; Glucose Random 336 mg/dL (60-115); HDL Cholesterol 44 mg/dL (>40); LDL Cholesterol Calculated 159 mg/dL (<100); Potassium 4.3 mmol/L (3.3-5.1); Sodium 140 mmol/L (135-145); Total Protein 5.7 g/dL (6.5-8.0); Triglycerides 157 mg/dL (<150)
== END 2024-07-24 10:30 | disposition home or self-care (01) ==
LOC: HO.LAB 10:29
PROVIDERS: PCP Family Medicine; Visit Provider Internal Medicine Hypertension Specialist
DX: I10 Essential (primary) hypertension (principal); E11.3299 Type 2 diabetes mellitus with mild nonproliferative diabetic retinopathy without macular edema, unspecified eye; Z79.4 Long term (current) use of insulin; E78.49 Other hyperlipidemia; E11.65 Type 2 diabetes mellitus with hyperglycemia; F17.200 Nicotine dependence, unspecified, uncomplicated
CPT/HCPCS: 36415; 80048; 80061; 80076

== ENCOUNTER 2024-08-05 12:52 | Outpatient (AMB) | payer MEDICAID, SELFPAY ==
--- NOTE | 2024-08-05 13:23 | MHC.OFFVIS ---
Vital Signs 08/05/24 13:25 Height 5 ft 5 in Weight 143 lb 11.862 oz BMI 23.9 BP 140/76 H Blood Pressure Location Lt brachial Position Sitting Pulse 80 Pulse Source Monitor Intake Visit Reasons: 3 mth f/up Intake Note: 3 mth f/up Alteration Tailor Apprentice Required: No Alteration Tailor Apprentice Name: daughter Accompanied by: Daughter Allergies latex (LATEX) Allergy (Severe, Verified 06/13/24 10:34) RASH naproxen (From NAPROSYN) Adverse Reaction (Intermediate, Verified 06/13/24 10:34) TACHYCARDIA Medication List - Last Reconciled 08/05/24 by Ghanshyam Daniel MD acetaminophen 1,000 mg (2 x 500 mg) PO Q8H PRN aspirin (Adult Low Dose Aspirin) 81 mg PO DAILY atorvastatin (Lipitor) 80 mg PO BEDTIME benzonatate 200 mg PO TID PRN blood sugar diagnostic (FreeStyle Lite Strips) As directed qnsfkiniba-httljhnvuwnva-amcc 50-325-40 mg 1 tab PO Q6H PRN carvedilol (Coreg) 25 mg PO BID docusate sodium 100 mg PO BID empagliflozin (Jardiance) 10 mg PO DAILY escitalopram oxalate (Lexapro) 20 mg PO DAILY@1800 ezetimibe 10 mg PO DAILY ferrous fumarate 325 mg PO BID ibuprofen 600 mg PO Q6H PRN insulin degludec (Tresiba FlexTouch U-100 insulin) 10 units subcut DAILY isosorbide mononitrate ER 30 mg PO QAM lorazepam (Ativan) 1 mg PO BEDTIME PRN metformin 1,000 mg PO BID mirtazapine 45 mg PO BEDTIME multivitamin 1 tab PO DAILY nifedipine ER 90 mg PO BEDTIME omeprazole 20 mg PO DAILY@0630 PRN pioglitazone 15 mg PO DAILY 30 days HPI Comments Details: 63-year-old female with h/o known CAD with 60-70% mid RCA stenosis which was FFR negative. In May when she was seen for perioperative cardiovascular risk assessment for fem-pop bypass surgery. She underwent surgery on 05/18/2020 and this was performed for a nonhealing left leg ulcer. She had left femoral to fzndr-bdw-dkiz popliteal bypass with [place] Propaten. She had left popliteal thrombectomy and left femoral endarterectomy. She did well after that and in November she had repeat angiogram performed for claudication by Dr. Aragon. This showed occluded SFA with patent fem-pop bypass. There was ostial profunda femorals stenosis. There is a high-grade stenosis at the distal anastomosis site in the popliteal artery. Anterior tibial is patent. Posterior tibial artery was occluded mid calf. She had successful angioplasty of the distal anastomosis of fem-pop and profunda femoris. On follow-up with us she continued to had like pain. She has been taking medications regularly. Blood pressure control is okay right now. At home she is saying her blood pressures are very high at nighttime and she has reported blood pressures of 200s. 11/07/22: She returns for follow-up. She was found to have 70-90% right internal carotid artery stenosis on neck CTA performed in October 2022. She has seen Dr. Aragon and is being considered for surgery and is referred to us for perioperative cardiovascular risk assessment. She continues to smoke 1 pack per day. She has dyspnea on exertion. Also has non anginal left-sided pulsating chest discomfort which happens at rest. She has also noticed her blood pressure to be significantly elevated at times. She is return to office after 2 years. She had a moderate right coronary artery disease which was FFR negative previously. 04/29/2024: She is here for follow-up. She recently presented with NSTEMI and was taken for cardiac catheterization which showed multivessel disease. She was referred for coronary artery bypass surgery. Apparently her hemoglobin A1c was too high and she was told that she needs to bring it down before surgery. She is denying any chest discomfort but her blood pressure is elevated. She is saying that she ran out of all of her medications. I have advised her that she should be more mindful about her medications because she tends to get significant hypertension and ends up in the emergency department and should not run out of medicines and should be calling us earlier. We will send scripts for her. She is following with endocrinology regularly and I have advised her that she should work on her diabetes and as that improves she should undergo surgery which will with the best treatment for her. She has quite diffuse disease which will require long stents and with diabetes chances are that she may have InStent restenosis and may require reintervention in the future. 08/05/2024: She is here for follow-up. Denying any significant symptoms on follow-up. She has been smoking. She has lower extremity claudication symptoms. Blood pressure is. Her cholesterol is also elevated feeling that has been using the atorvastatin and ezetimibe off and on. Her daughter accompanied her in his saying that her mother does not want to undergo surgery and is there any percutaneous options. [facility] Medical History NSTEMI (non-ST elevated myocardial infarction) Mild aortic valve stenosis LORE (obstructive sleep apnea) Chronic low back pain Lumbar spinal stenosis HTN (hypertension) Vitamin D deficiency HLD (hyperlipidemia) T2DM (type 2 diabetes mellitus) H. pylori infection CAD (coronary artery disease) Cyst (solitary) of breast Kidney calculi Arthritis Asthma HTN (hypertension) Diabetes Surgical History History of right-sided carotid endarterectomy (~11/2022) S/P aortogram History of esophagogastroduodenoscopy (EGD) Hx of colonoscopy History of breast surgery History of cardiac cath Family History Mother Diabetes Liver cancer Social History Household Members: Children Household Members Other:: friend and adult son Housing: Apartment Are you a primary care partner to a significant other at home: No Do you presently have visiting nurse or other home services: Yes (RN 2x/week) Alcohol intake: never Comment: refuses bed alarm Patient Tobacco Use Status: Current everyday Tobacco user Tobacco use type: Cigarette Cigarette Packs Per Day: 1 Cigarettes Per Day: 4 Years Smoked: 30 e-Cigarette/Vaping Use: Currently Using Second Hand Smoke Exposure: Yes Advance Directives Date on File: 09/26/23 service: No Current occupational status: unemployed and disabled Review of Systems Const Denies chills, Denies fatigue, Denies fever(s), Denies frequent falls, Denies weakness, Denies weight gain and Denies weight loss ENT Denies dizziness Card Denies chest pain, Reports leg edema, Denies lightheadedness, Denies palpitations, Denies dyspnea and Denies dyspnea on exertion Resp Denies cough, Denies dyspnea and Denies dyspnea on exertion GI Denies hematochezia Musc Denies abnormal gait, Denies muscle weakness, Denies numbness, Denies radiating pain into limb and Denies tingling Neuro Denies abnormal gait, Denies dizziness, Denies frequent falls, Denies numbness, Denies tingling and Denies weakness Endo Denies fatigue and Denies palpitations Physical Exam Vital Signs: Last Vital Signs Pulse 80 08/05/24 13:25 BP 140/76 H 08/05/24 13:25 BMI result Body Mass Index 23.9 GENERAL APPEARANCE: in no acute distress, pleasant. NECK: no jugular venous distention. Right carotid endarterectomy scar. SKIN: no suspicious lesions, warm and dry. HEART: no murmurs, regular rate and rhythm. LUNGS: clear to auscultation bilaterally. ABDOMEN: soft, nontender. EXTREMITIES: no edema. PERIPHERAL PULSES: equal. NEUROLOGIC: No gross deficits, AAO X 3 Office Procedures EKG Details: Sinus rhythm 80 beats per minute, normal axis, nonspecific T-wave changes, QTC 438 milliseconds, left ventricular hypertrophy. [id number], Complete Assessment & Plan Assessment & Plan (1) HTN (hypertension): Code(s): I10 - Essential (primary) hypertension Category: Medical (2) Nonadherence to medication: Code(s): Z91.148 - Patient's other noncompliance with medication regimen for other reason Category: Medical (3) Stable angina: Code(s): I20.8 - Other forms of angina pectoris Category: Medical (4) CAD (coronary artery disease): Comment: cath 2016, med managed Code(s): I25.10 - Atherosclerotic heart disease of [place] coronary artery without angina pectoris Category: Medical Plan [age] year female who is a vasculopath and has diabetes who has uncontrolled hypertension, uncontrolled hyperlipidemia and diabetes. She is an active smoker. Previous lower extremity bypass surgery with ongoing claudication. She has multivessel disease which is diffuse. I have reviewed her angiogram again and I think her options are very limited percutaneously. The right coronary artery can be treated but we will require full metal jacket. She has diffuse disease of the LAD and circumflex and probably will be best served with surgery. She is following with endocrinology closely and hopefully her A1c levels are improving. I am increasing her nifedipine to 90 mg twice a day. Her blood pressure is still elevated. Her cholesterol is elevated but she is saying she has not been using atorvastatin and ezetimibe regularly. I have advised her to start taking it regularly so we can add other agents if required. She will see us back in few months. Thank you for allowing me to participate in the care of your patient. Please feel free to contact me if you have any questions. Coding Level of Care Code Est Pt Level 4 (87989) Diagnoses Hypertension, unspecified type I10 Nonadherence to medication Z91.148 Stable angina I20.8 CAD (coronary artery disease) I25.10 CPT Codes EKG - CPT: 83779-[id number], Complete ([id number])
[2024-08-05 13:25] VITALS: BP 140/76; PULSE 80; BMI 23.9
== END 2024-08-05 14:05 | disposition home or self-care (01) ==
LOC: HO.HCS 12:53
PROVIDERS: PCP Family Medicine; Visit Provider Internal Medicine Cardiovascular Disease
DX: I10 Essential (primary) hypertension (principal); Z91.148 Patient's other noncompliance with medication regimen for other reason; I20.89 Other forms of angina pectoris; I25.10 Atherosclerotic heart disease of native coronary artery without angina pectoris
CPT/HCPCS: 93010; 99214

== ENCOUNTER → 2024-08-05 12:52 | Outpatient (BNVA) | payer MEDICAID, SELFPAY | PROVIDERS: PCP Family Medicine; Visit Provider Internal Medicine Cardiovascular Disease | DX: I25.118 Atherosclerotic heart disease of native coronary artery with other forms of angina pectoris (principal); I10 Essential (primary) hypertension; Z91.148 Patient's other noncompliance with medication regimen for other reason | CPT/HCPCS: 93005; 99212 ==

== ENCOUNTER 2024-08-08 11:52 | Outpatient (REF) | payer MEDICAID, SELFPAY ==
--- NOTE | ~2024-08-08 | XR_ITS ---
EXAMINATION: XR HIP, LEFT CLINICAL INFORMATION: Deep left hip pain COMPARISON: January 06, 2017 TECHNIQUE: Two views of the left hip. FINDINGS: Left hip joint is congruent and preserved. No fracture is evident. No significant soft tissue calcifications are seen. There is sclerosis and mild narrowing of the recesses joint. 2 Surgical clips project over the left hip joint, probably anterior to the joint. Mild to moderate vascular opacifications are present. XR/XR hip LT min 2V IMPRESSION: Unremarkable left hip. Electronically signed by: Zain Addison MD 08/08/2024 12:52 PM EDT
[2024-08-08 13:42] LABS: Anion Gap 9 (12-20); Blood Urea Nitrogen 14 mg/dL (9-16); Calcium 7.9 mg/dL (8.4-10.2); Carbon Dioxide 25 mmol/L (22-29); Chloride 108 mmol/L (96-108); Estimated Glomerular Filt Rate > 60; Potassium 4.4 mmol/L (3.3-5.1); Sodium 138 mmol/L (135-145)
[2024-08-08 13:44] LABS: Glucose Random 369 mg/dL (60-115)
[2024-08-08 14:02] LABS: B Type Natriuretic Peptide 96 pg/mL (<100)
--- OUTSIDE RECORDS SUMMARY | 2024-08-08 14:16 | XMS_ITS | Encounter Summary ---
Author Organization [employer] Address [address] [place] [address] Care Team Providers Care Speeder Worker Name Role Phone ShaheenRadha Primary Care Provider [phone] Nelia Sullivan PharmD Unavailable [phone] Encounter Details Date Type Department Care Team (Late st Contact Info) Description 08/08/2024 Orders Only GENERIC EXTERNAL DATA DEPARTMENT Provider, Generic External Data Social History Tobacco Use Types Packs/Day Years [...] Care Team (Late st Contact Info) Description 08/13/2024 11:30 AM EDT Medication Management [facility] [address] [place] [address] Puia, Nelia, PharmD [address] [place] [address] documented as of this encounter Goals Goal Patient Goal Type Associated Problems Recent Progress Patient-Stated? Author Record your blood pressure once per day Blood Pressure No Puia, Nelia, PharmD Blood Pressure < 140/90 Blood Pressure 178/80(2024 4:11 PM EDT) No Puia, Nelia, PharmD Smoking cessation General No Puia, Nelia, PharmD Patient will adhere to medication regimen General No Puia, Nelia, PharmD Hemoglobin A1c < 7 Result Component 10.3(05/25/19 25 12:32 PM EDT) No Abdias Murillo PharmAdrian Record your blood sugar as directed Result Component No Puia, Nelia, PharmD Note: Use CGM, ensuring sensor is scanned at least once every 8 hours to capture 24H data. Check BG manually, as directed. documented as of this encounter Procedures Procedure Name Priority Date/Time Associated Diagnosis Comments BASIC METABOLIC PANEL Routine 08/08/2024 12:01 PM EDT documented in this encounter Results * (ABNORMAL) Basic Metabolic Panel (08/08/2024 12:01 PM EDT) Sodium 138 135 - 145 mmol/L [facility] Potassium 4.4 3.3 - 5.1 mmol/L [facility] Chloride 108 96 - 108 mmol/L [facility] Carbon Dioxide 25 22 - 29 mmol/L [facility] Anion Gap 9(L) 12 - 20 [facility] Urea Nitrogen (BUN) 14 9 - 16 mg/dL [facility] Creatinine, Serum 0.94 0.5 - 1.4 mg/dL [facility] Estimated Glomerular Filt Rate >60 [facility] Comment:Chronic Kidney Disea se: Estimated GFR < 60 mL/min/[id number] Kidney Disease: Estimated GFR < 15 mL/min/1.73m2 Glucose 369(HH) 60 - 115 mg/dL [facility] Comment:Critical value for G LUR: Results called to and read backby: Sary S Person calling: GALENSA Date: 08/08/24 Time:1343 Calcium 7.9(L) 8.4 - 10.2 mg/dL [facility] 08/08/2024 12:0 1 PM EDT 08/08/2024 1:17 PM EDT us Generic External Data Provider LAB BLOOD ORDERAB LES Final Result [facility] [address] [place] [address] [phone] documented in this encounter Visit Diagnoses Not on filedocumented in this encounter Additional Health Concerns Assessment Noted Time PHQ-9 Depression Total Score: 10 12/20/ 024 10:24 AM EST documented as of this encounter Care Teams Speeder Worker Relationship Specialty Start Date End Date Radha Jamison DO [address] [place] [id number] PCP - General Family Medicine 01/26/12 Nelia Sullivan, Camron [address] [place] [id number] Pharmacist Internal Medicine 08/31/23 Laurel Monterroso Director TradingCheck Airman 10/27/22 Saige Aguilar 09/26/23 documented as of this encounter
== END 2024-08-08 11:53 | disposition home or self-care (01) ==
LOC: HO.HHCX 11:52
PROVIDERS: Internal Medicine Hypertension Specialist; PCP Family Medicine; Referring Provider General Practice; Visit Provider Family Medicine
DX: M25.552 Pain in left hip (principal); I10 Essential (primary) hypertension; I73.9 Peripheral vascular disease, unspecified; R80.9 Proteinuria, unspecified; D64.9 Anemia, unspecified; E11.3213 Type 2 diabetes mellitus with mild nonproliferative diabetic retinopathy with macular edema, bilateral; M79.89 Other specified soft tissue disorders
CPT/HCPCS: 36415; 73502; 80048; 83880; 99212

== ENCOUNTER → 2024-08-08 12:13 | Outpatient (BNV) | payer MEDICAID, SELFPAY | PROVIDERS: PCP Family Medicine; Referring Provider General Practice; Visit Provider Radiology Diagnostic Radiology | DX: M25.852 Other specified joint disorders, left hip (principal) | CPT/HCPCS: 73502 ==

== ENCOUNTER 2024-08-08 14:03 | Outpatient (AMB) | payer MEDICAID, SELFPAY ==
[2024-08-08 14:04] VITALS: BP 162/66; PULSE 79; O2SAT 98; BMI 24.3
--- NOTE | 2024-08-08 14:04 | HO.NEPHOV ---
Vital Signs 08/08/24 14:04 Height 5 ft 5 in Weight 146 lb BMI 24.3 BP 162/66 H Blood Pressure Location Rt brachial Position Sitting Pulse 79 Pulse Source Pulse Oximeter Pulse Oximetry (%) 98 Oxygen Delivery Method Room Air Intake Visit Reasons: 4 MO FU/Conf Pupil Personnel Services Director Required: No Pupil Personnel Services Director Services: Pupil Personnel Services Director Offered & Declined (Daughter will translate ) Accompanied by: Family/Other Allergies latex (LATEX) Allergy (Severe, Verified 08/08/24 14:06) RASH naproxen (From NAPROSYN) Adverse Reaction (Intermediate, Verified 08/08/24 14:06) TACHYCARDIA Medication List - Last Reconciled 08/08/24 by Pratik Horn MD acetaminophen 1,000 mg (2 x 500 mg) PO Q8H PRN amitriptyline 50 mg PO BEDTIME PRN aspirin (Adult Low Dose Aspirin) 81 mg PO DAILY atorvastatin (Lipitor) 80 mg PO BEDTIME benzonatate 200 mg PO TID PRN blood sugar diagnostic (FreeStyle Lite Strips) As directed bwvngwqssq-zqjncsiqlhise-xhor 50-325-40 mg 1 tab PO Q6H PRN carvedilol (Coreg) 25 mg PO BID docusate sodium 100 mg PO BID empagliflozin-metformin 12.5-1,000 mg (Synjardy) 1 tab PO escitalopram oxalate (Lexapro) 20 mg PO DAILY@1800 ezetimibe 10 mg PO DAILY ferrous fumarate 325 mg PO BID gabapentin 600 mg PO BID ibuprofen 600 mg PO Q6H PRN insulin degludec (Tresiba FlexTouch U-100 insulin) 10 units subcut DAILY isosorbide mononitrate ER 30 mg PO QAM lorazepam (Ativan) 1 mg PO BEDTIME PRN mirtazapine 45 mg PO BEDTIME multivitamin 1 tab PO DAILY nifedipine ER 90 mg PO BEDTIME omeprazole 20 mg PO DAILY@0630 PRN pioglitazone 15 mg PO DAILY 30 days prednisone 20 mg PO DAILY HPI Comments Details: . Rocío is a 62-year-old woman with a significant vascular disease and resistant hypertension. She is on multiple antihypertensive medications in the blood pressure is still suboptimal. She did not bring her list of medications. However from the available data it appears that she is on amlodipine 10 mg carvedilol 25 mg twice a day clonidine patch, hydralazine 50 mg t.i.d. lisinopril 40 mg and hydrochlorothiazide 25 mg. She tells me that she has been compliant with her medications. There is a question of renal artery stenosis. However she had a Doppler ultrasound a year ago which was inconclusive however she had a CT angiogram in 2021 which did not reveal any significant renal artery stenosis. She has normal renal function with a creatinine of less than 1. She has non nephrotic range proteinuria with a urine protein creatinine ratio revealing 1000 mg of protein excretion. She has carotid artery disease with 60-70% mid RCA stenosis History of peripheral vascular disease status post fem-pop bypass surgery and left femoral endarterectomy and left popliteal thrombectomy. She has a history of smoking for many years. She continues to smoke half a pack per day. She has dyslipidemia with a total cholesterol of 240 and LDL of 165. She is on atorvastatin 80 mg daily. 07/27/2023. She is accompanied by her daughter. She is tolerating Aldactazide. Yesterday her blood pressure was around 200 mm Hg systolic. However she did not take her medications yesterday. Today she is feeling fine office readings are excellent. Renal angiogram is still pending 08/21/2023. Accompanied by her daughter. She tells me that her blood pressure increases every time she takes hydralazine therefore she stopped taking hydralazine. At present she is on lisinopril 40 mg and Aldactazide 25/25 1 a day. Upon talking to her I am not sure if she is really taking her medications. She was scheduled for renal angiogram next week. No specific complaints today 11/10/2023. She underwent renal angiogram which did not reveal any stenosis of large arteries. He was in the ER twice with elevated blood pressure. She was scheduled for coronary angiogram next month in [facility]. She did not bring her medications today but it was cross checked with pharmacy 11/15/2023. [place] [facility] [place]. Here for follow up with family. She was scheduled for coronary angiogram in the next few weeks All medications were reviewed 01/30/24 Bp well controlled. Cardiac work up in progress 04/11/24 c/o LEg edema Cardiac follow up on April 24 08/08/24 The patient is a 63-year-old female presenting with concerns related to kidney function and high blood pressure management. She has been experiencing peripheral edema, which is suspected to be exacerbated by her current medication regimen. The edema is causing discomfort, and there is a concern that increasing her medication dosage may worsen the swelling. The patient is also on prednisone for lung issues, which has led to elevated blood glucose levels. Adjustments to her insulin regimen have been necessary to manage the hyperglycemia. Her kidney function appears stable based on recent laboratory evaluations. [facility] Medical History NSTEMI (non-ST elevated myocardial infarction) Mild aortic valve stenosis LORE (obstructive sleep apnea) Chronic low back pain Lumbar spinal stenosis HTN (hypertension) Vitamin D deficiency HLD (hyperlipidemia) T2DM (type 2 diabetes mellitus) H. pylori infection CAD (coronary artery disease) Cyst (solitary) of breast Kidney calculi Arthritis Asthma HTN (hypertension) Diabetes Surgical History History of right-sided carotid endarterectomy (~11/2022) S/P aortogram History of esophagogastroduodenoscopy (EGD) Hx of colonoscopy History of breast surgery History of cardiac cath Family History Mother Diabetes Liver cancer Social History Household Members: Children Household Members Other:: friend and adult son Housing: Apartment Are you a primary child adolescent care to a significant other at home: No Do you presently have visiting nurse or other home services: Yes (RN 2x/week) Alcohol intake: never Comment: refuses bed alarm Patient Tobacco Use Status: Current everyday Tobacco user Tobacco use type: Cigarette Cigarette Packs Per Day: 1 Cigarettes Per Day: 4 Years Smoked: 30 e-Cigarette/Vaping Use: Currently Using Second Hand Smoke Exposure: Yes Advance Directives Date on File: 09/26/23 service: No Current occupational status: unemployed and disabled Physical Exam Vital Signs: Last Vital Signs Pulse 79 08/08/24 14:04 BP 162/66 H 08/08/24 14:04 Pulse Ox 98 08/08/24 14:04 Oxygen Delivery Method Room Air 08/08/24 14:04 BMI result Body Mass Index 24.3 Const General: comfortable; No acute distress Orientation/consciousness: patient oriented x3 Eyes General: appearance normal, both eyes and all related structures Visual Chase: normal visual chase by confrontation Neck Neck: Yes supple and Yes no JVD Resp Effort & Inspection: normal respiratory effort and respiratory effort not decreased Cardio Palpation: no palpable S3 and no palpable S4 Heart sounds: no rubs GI Inspection: Yes normal to inspection Palpation (GI): Soft to palpation Percussion: Yes normal to percussion Auscultation: normal bowel sounds General: Yes no CVA tenderness Back/Spine/Pelvis Back: no CVA tenderness Skin General skin exam: no petechiae and no purpura Neuro General: patient oriented x3 and no focal motor deficits Extrem General: No clubbing and Yes edema (Trace) Results Reviewed Nephrology Results: Hgb, (12.0-16.0) 10.4 g/dl L 06/07/24 WBC, (4.8-10.8) 6.2 X10*3/uL 06/07/24 Plt Count, (160-400) 321 X10*3/uL Δ 06/07/24 Sodium, (135-145) 138 mmol/L Today Potassium, (3.3-5.1) 4.4 mmol/L Today Chloride, (96-108) 108 mmol/L Today Carbon Dioxide, (22-29) 25 mmol/L Today BUN, (9-16) 14 mg/dL Today Creatinine, (0.5-1.4) 0.94 mg/dL Today Calcium, (8.4-10.2) 7.9 mg/dL L Δ Today Renal US 09/27/22 Assessment & Plan Assessment & Plan (1) HTN (hypertension): Code(s): I10 - Essential (primary) hypertension Category: Medical (2) PVD (peripheral vascular disease): Code(s): I73.9 - Peripheral vascular disease, unspecified Category: Medical (3) Proteinuria: Code(s): R80.9 - Proteinuria, unspecified Category: Medical (4) Anemia: Code(s): D64.9 - Anemia, unspecified Category: Medical (5) T2DM (type 2 diabetes mellitus): Code(s): E11.9 - Type 2 diabetes mellitus without complications Category: Medical Qualifiers: Diabetes mellitus complication detail: with diabetic retinopathy Diabetes mellitus complication status: with ophthalmic complications Diabetes mellitus terminal system operator insulin use: without senior care use Diabetes mellitus macular edema: with macular edema Diabetic retinopathy severity: with mild nonproliferative retinopathy Laterality: bilateral Qualified Code(s): E11.3213 - Type 2 diabetes mellitus with mild nonproliferative diabetic retinopathy with macular edema, bilateral Plan . Rocío has a resistant hypertension in a setting of significant vascular disease. She probably has underlying renal artery stenosis. Back in 2021 renal angiogram did not reveal any stenosis. However the ultrasonogram was inconclusive. Based on the history and clinical findings we still need to rule out renal artery stenosis. renal angiogram. NO stenosis of large vessels ( August 2023 ) Today the blood pressure is acceptable no changes were made. Follow renal function and potassium 24 hour ambulatory blood pressure monitoring was incomplete and results are inconclusive I discussed smoking cessation again. Has cut down to 1 aday! At present renal function is stable. She has non nephrotic range proteinuria most likely due to hypertensive diabetic kidney disease. She is at risk for ongoing renal injury from suboptimally controlled blood pressure. Continue to maximize CHERRI inhibition for renal protection. She will benefit from SGLT2 inhibitors. Continue with Jardiance Mild edema due to CCB Discussed importance of staying on Nifedipine Stay on low-salt diet 08/08/24 BP sub optimal Mild Fluid overload Add HCTZ 25 mg QD Nifedipine /Actos might also be contributing to edema . Orders: Orders Basic Metabolic Panel 2 Months I10 - Essential (primary) hypertension Medications: New hydrochlorothiazide 25 mg PO DAILY 90 tabs 1RF Coding Level of Care Code Est Pt Level 4 (57571) Diagnoses Hypertension, unspecified type I10 PVD (peripheral vascular disease) I73.9 Proteinuria R80.9 Anemia D64.9 Type 2 diabetes mellitus with both eyes affected by mild nonproliferative retinopathy and macular edema, without long-term current use of insulin E11.3213 Diabetes mellitus complication detail: with diabetic retinopathy Diabetes mellitus complication status: with ophthalmic complications Diabetes mellitus senior care insulin use: without senior care use Diabetes mellitus macular edema: with macular edema Diabetic retinopathy severity: with mild nonproliferative retinopathy Laterality: bilateral
== END 2024-08-08 14:21 | disposition home or self-care (01) ==
LOC: HO.HKA 14:03
PROVIDERS: PCP Family Medicine; Visit Provider Internal Medicine Hypertension Specialist
DX: I10 Essential (primary) hypertension (principal); I73.9 Peripheral vascular disease, unspecified; R80.9 Proteinuria, unspecified; D64.9 Anemia, unspecified; E11.3213 Type 2 diabetes mellitus with mild nonproliferative diabetic retinopathy with macular edema, bilateral
CPT/HCPCS: 99214

== ENCOUNTER 2024-08-26 23:26 | Inpatient (IN) | payer MEDICAID, SELFPAY ==
--- NOTE | ~2024-08-26 | CT_ITS ---
CLINICAL HISTORY: severe abd pain, vasculopathy CT angiography abdomen and pelvis. 3D Postprocessing. Comparison: Report from CT dated 04/17/2022. Images are not provided/available at this time. Findings: There is a moderate sized hiatal hernia. There is mild bibasilar atelectasis. There is a sharply demarcated region of nonenhancement in the medial portion of the spleen consistent with a splenic infarct. The infarct is roughly involving 25% of the splenic parenchyma. The main splenic artery is atherosclerotic, but patent. There appears to be thrombosis of a small splenic artery branch extending to the infarct. The liver, gallbladder, pancreas, adrenal glands, and kidneys are unremarkable. There is a moderate amount of stool in the colon. There is no bowel obstruction. Stomach and small bowel are unremarkable. There is no free fluid or free air. There are no enlarged lymph nodes. Uterus and adnexa are grossly unremarkable. The bladder is mildly distended. There is atherosclerotic plaque throughout the abdominal aorta causing less than 50% stenosis distally. The celiac, superior mesenteric, and bilateral renal arteries are patent without significant stenosis. There appears to be moderate stenosis of the origin of the inferior mesenteric artery. There is a patent stent in the right common iliac artery. There is occlusion of the bilateral internal iliac arteries. The superficial femoral arteries are occluded bilaterally. There is a partially visualized left femoral bypass graft. There is no fracture or suspicious lytic or sclerotic lesion. There is lower lumbar facet osteoarthritis. There is degenerative grade 1 anterolisthesis of L4 on L5. IMPRESSION: 1. Findings consistent with a splenic infarct as described above. 2. Chronic findings as above. This document has been electronically signed by: Jorje Taveras MD on 08/27/2024 02:43:11
--- NOTE | ~2024-08-26 | XR_ITS ---
CLINICAL HISTORY: chest pain 1 view chest x-ray Comparison: 05/18/2024 Findings: Lungs are clear without acute infiltrates. No pneumothorax. Heart size normal. No acute bony abnormalities. Impression: No acute processes This document has been electronically signed by: Mynor Campbell MD on 08/27/2024 00:53:35
[2024-08-26 23:31] VITALS: BP 217/84; BP 218/78; PULSE 79; PULSE 90; RESP 18; TEMP 36.7; O2SAT 99; BMI 28.9
--- NOTE | 2024-08-26 23:40 | ECG_ITS ---
Test Reason : ABD PAIN/RADIATING TO BACK Blood Pressure : */* mmHG Vent. Rate : 81 BPM Atrial Rate : 81 BPM P-R Int : 132 ms QRS Dur : 88 ms QT Int : 382 ms P-R-T Axes : 44 -12 96 degrees QTcB Int : 443 ms Normal sinus rhythm Moderate voltage criteria for LVH, may be normal variant ( R in aVL , Wickett product ) Abnormal ECG When compared with ECG of 07-Jun-2024 18:31, No significant change was found Referred By: Manny Higgins Electronically Signed By: JM DU
[2024-08-27] VITALS (12 sets, daily range): BP systolic 152–219; BP diastolic 64–90; PULSE 68–84; RESP 16–20; TEMP 36.2–36.8; O2SAT 93–99; BMI 28.0
--- NOTE | 2024-08-27 00:13 | ED.ABDPAIN ---
HPI - Abdominal Pain General Chief Complaint: Abdominal Pain Stated Complaint: ABDOMINAL PAIN Time Seen by Provider: 08/26/24 23:35 History of Present Illness ED Provider: Manny Higgins MD HPI narrative: 63-year-old female with a history of peripheral arterial disease including leg arterial disease and carotid status post carotid endarterectomy also CAD with stents in the past here with abdominal pain mostly midepigastric some radiating to the back she told nurse at triage this was after drinking orange juice but she noted pain all day today. No GI bleeding no trauma of the abdomen Related Data Home Medications ?Medication ?Instructions ?Recorded ?Confirmed aspirin 81 mg tablet,delayed 81 mg PO DAILY 01/02/20 08/27/24 release (Adult Low Dose Aspirin) atorvastatin 80 mg tablet (Lipitor) 80 mg PO BEDTIME 01/02/20 08/27/24 escitalopram oxalate 20 mg tablet 20 mg PO DAILY@1800 01/02/20 08/27/24 (Lexapro) mirtazapine 45 mg tablet 45 mg PO BEDTIME 01/02/20 08/27/24 multivitamin 1 tab PO DAILY 01/02/20 08/27/24 blood sugar diagnostic (FreeStyle #10 ea 03/30/21 08/08/24 Lite Strips) insulin degludec 100 unit/mL (3 14 unit subcut DAILY 10/03/22 08/27/24 mL) subcutaneous pen (Tresiba FlexTouch U-100 insulin) docusate sodium 100 mg capsule 100 mg PO BID 01/30/24 08/27/24 ezetimibe 10 mg tablet 10 mg PO DAILY 04/11/24 08/27/24 amitriptyline 50 mg tablet 50 mg PO BEDTIME 08/08/24 08/27/24 empagliflozin 12.5 mg-metformin 1 tab PO BID 08/08/24 08/27/24 1,000 mg tablet (Synjardy) gabapentin 600 mg tablet 600 mg PO BID 08/08/24 08/27/24 hydrochlorothiazide 50 mg tablet 50 mg PO DAILY 08/08/24 08/27/24 acetaminophen 650 mg 650 mg PO Q8H 08/27/24 08/27/24 tablet,extended release albuterol sulfate 90 mcg/actuation 2 puff inhalation Q6H PRN 08/27/24 08/27/24 aerosol inhaler (Ventolin HFA) Shortness Of Breath Or Wheezing clopidogrel 75 mg tablet 75 mg PO DAILY 08/27/24 08/27/24 [id number]-acetaminophen 30 ml PO Q4H PRN Cough 08/27/24 08/27/24 6.25 mg-30 [id number]/15mL oral liqd ferrous sulfate 325 mg (65 mg 325 mg PO BID PRN Iron Levels 08/27/24 08/27/24 iron) tablet fluticasone propionate 50 2 spray intranasal DAILY 08/27/24 08/27/24 mcg/actuation nasal spray,suspension isosorbide mononitrate 30 mg 30 mg PO DAILY 08/27/24 08/27/24 tablet,extended release 24 hr lisinopril 40 mg tablet 40 mg PO DAILY 08/27/24 08/27/24 loratadine 10 mg tablet 10 mg PO DAILY 08/27/24 08/27/24 mometasone 100 mcg/actuation HFA 2 puff inhalation BID 08/27/24 08/27/24 aerosol inhaler (Asmanex HFA) nicotine (polacrilex) 2 mg buccal 2 mg PO Q1-2H PRN Nicotine Cravings 08/27/24 08/27/24 lozenge omeprazole 20 mg capsule,delayed 40 mg PO BIDWM@0800,1700 08/27/24 08/27/24 release semaglutide 0.25 mg or 0.5 mg (2 0.5 mg subcut FR 08/27/24 08/27/24 mg/3 mL) subcutaneous pen injector (Ozempic) Previous Rx's ?Medication ?Instructions ?Recorded pioglitazone 15 mg tablet 15 mg PO DAILY 30 days #30 tabs 12/02/20 carvedilol 25 mg tablet (Coreg) 25 mg PO BID #120 tabs 04/29/24 nifedipine 90 mg tablet,extended 90 mg PO BEDTIME #90 tabs 04/29/24 release 24 hr benzonatate 200 mg capsule 200 mg PO TID PRN cough #20 caps 05/18/24 apixaban 5 mg tablet (Eliquis) 5 mg PO BID #74 tabs 08/28/24 cefuroxime axetil 500 mg tablet 500 mg PO Q12H #8 tabs 08/28/24 Allergies Allergy/AdvReac Type Severity Reaction Status Date / Time latex (LATEX) Allergy Severe RASH Verified 08/26/24 23:35 naproxen (From NAPROSYN) AdvReac Intermediate TACHYCARDIA Verified 08/26/24 23:35 ON LICENSE OF [facility] Past Medical History Medical History NSTEMI (non-ST elevated myocardial infarction) Mild aortic valve stenosis LORE (obstructive sleep apnea) Chronic low back pain Lumbar spinal stenosis HTN (hypertension) Vitamin D deficiency HLD (hyperlipidemia) T2DM (type 2 diabetes mellitus) H. pylori infection CAD (coronary artery disease) Cyst (solitary) of breast Kidney calculi Arthritis Asthma HTN (hypertension) Diabetes Surgical History History of right-sided carotid endarterectomy (~11/2022) S/P aortogram History of esophagogastroduodenoscopy (EGD) Hx of colonoscopy History of breast surgery History of cardiac cath Family History Family History Mother Diabetes Liver cancer Social History Social History Household Members: Family and Children Household Members Other:: friend and adult son Housing: House Are you a primary manager care management to a significant other at home: No Do you presently have visiting nurse or other home services: Yes (RN 2x/week) Alcohol intake: never Comment: refuses bed alarm Patient Tobacco Use Status: Current everyday Tobacco user Tobacco use type: Cigarette Cigarette Packs Per Day: 1 Years Smoked: 30 e-Cigarette/Vaping Use: Currently Using Second Hand Smoke Exposure: Yes Advance Directives Date on File: 09/26/23 service: No Current occupational status: unemployed and disabled Physical Exam ED Vital Signs: Vital Signs - 24 hr 08/26/24 23:31 08/27/24 00:07 08/27/24 02:09 Temperature 98.1 F Pulse Rate 79 79 Respiratory Rate 18 18 Blood Pressure 217/84 H 196/86 H 184/68 H Pulse Oximetry 99 98 Oxygen Delivery Method Room Air Room Air 08/27/24 02:24 08/27/24 04:13 08/27/24 05:53 Temperature 97.9 F 97.8 F Pulse Rate 77 71 68 Respiratory Rate 16 18 16 Blood Pressure 219/90 H 196/84 H 169/69 H Pulse Oximetry 97 98 99 Oxygen Delivery Method Room Air Room Air Room Air BMI result Body Mass Index 28.9 EXAM: Gen: Alert, uncomfortable appearing. Speaking full sentences not distressed Head: Atraumatic Eyes: Anicteric, Normal conjunctiva. ENT: Moist mucosa, no pallor. ? Neck: Supple. Skin: ?No observable rash or bruising on exposed or examined skin Respiratory: Breathing comfortably, No distress.Clear to auscultation bilaterally, symmetric chest expansion, No wheeze, rales, ronchi. Cardiovascular: Regular rate and rhythm. No murmurs or rub. Well perfused periphery, warm extremities. No edema. ? Abdominal: Moderate diffuse abdominal pain tenderness mostly in the midepigastrium but diffusely as well.. No palpable masses or obvious organomegaly. ?No guarding, no rebound tenderness or other peritoneal findings. : No flank tenderness. Neuro: Alert. Gross movement of all extremities intact. ? Psych: Calm. Cooperative. MSK: No grossly visible deformity. Vital signs: See flowsheet Course Reevaluation(s) Reevaluation #1: Assumed care from previous provider pending CT result and final disposition. Patient with continued abdominal pain we will order Dilaudid. Time: 02:05 Reevaluation #2: CT shows evidence of a splenic infarct. There is no evidence of trauma, infection. No further emesis today. She is feeling improved after Dilaudid. I will admit her to the hospitalist for further care and evaluation. Time: 06:44 Medical Decision Making Medical Decision Making MDM Narrative: Medical Decision Makin-year-old female with peripheral arterial disease, CAD with abdominal pain mostly in the epigastrium. Could be anginal equivalent. ECG is reassuring however with LVH no acute ischemic changes. Looks uncomfortable on initial evaluation described mostly as epigastric pain and she correlates this directly with drinking orange juice suggesting more of a GI etiology. She has history of vasculopathy makes me concern and I think at least we should rule out RI. No pulsatile mass symmetric pulses in the extremities doubt dissection or AAA though this was considered. Preliminary Favored Differential Diagnosis: Gastritis/PUD, esophagitis, enteritis, pericarditis, pleuritis, musculoskeletal pain, ACS among additional considered etiologies Testing Interpreted Independently: ECG sinus rhythm rate 81 QTC 443. LVH no acute ischemic changes. Radiology or Lab testing Results Reviewed: Not Applicable Consults: Not Applicable Independent Historians/External Chart Reviews: Not Applicable Social Determinants of Health Impacting MDM/Planning: Not Applicable Lab Data 08/28/24 08:45 08/28/24 08:45 Labs: Lab Results 08/27/24 08/27/24 08/27/24 Range/Units 00:15 00:20 02:29 WBC 8.1 (4.8-10.8) X10*3/uL RBC 3.70 L (4.20-5.50) X10*6/uL Hgb 10.9 L (12.0-16.0) g/dl Hct 32.2 L (37.0-47.0) % MCV 87.0 (80.0-98.0) fL MCH 29.5 (27.0-33.0) pg MCHC 33.9 (31.0-35.0) g/dl RDW 13.6 (11.0-16.0) % Plt Count 290 (160-400) X10*3/uL MPV 8.9 L (9.4-12.3) fL Immature Gran % (Auto) 0.2 (0.0-0.4) % Neut % (Auto) 70.2 (45-73) % Lymph % (Auto) 18.7 L (20-40) % [place] % (Auto) 6.8 (2-11) % Eos % (Auto) 3.6 (0-4) % Baso % (Auto) 0.5 (0-2) % Lymph # (Auto) 1.5 (1.2-4.9) X10*3/uL [place] # (Auto) 0.6 (0.1-1.2) X10*3/uL Eos # (Auto) 0.3 (0.0-0.4) X10*3/uL Baso # (Auto) 0.0 (0.0-0.2) X10*3/uL Abs Immat Gran (auto) 0.02 (0.00-0.03) X10*3/uL Absolute Neuts (auto) 5.7 (2.0-8.3) x10*3/uL Absolute Nucleated RBC 0.000 (0.0-0.012) X10*3/uL Nucleated RBC % (auto) 0.0 (0.0-0.2) /100WBC Sodium 139 (135-145) mmol/L Potassium 3.9 (3.3-5.1) mmol/L Chloride 107 (96-108) mmol/L Carbon Dioxide 27 (22-29) mmol/L Anion Gap 9 L (12-20) BUN 12 (9-16) mg/dL Creatinine 1.01 (0.5-1.4) mg/dL Estim Creat Clear Calc 49.3 Estimated GFR 56 Random Glucose 279 H (60-115) mg/dL Lactic Acid 0.7 (0.5-2.0) mmol/L Calcium 8.4 D (8.4-10.2) mg/dL Total Bilirubin 0.1 (0.0-1.0) mg/dL AST 16 (5-31) U/L ALT < 6 (0-31) U/L Alkaline Phosphatase 93 (39-117) U/L Troponin I High Sens 5.7 5.2 (<3.5-17.0) ng/L Total Protein 5.9 L (6.5-8.0) g/dL Albumin 3.2 L (3.5-5.0) g/dL Lipase 8 (8-78) U/L Urine Color Yellow Urine Appearance Turbid Urine pH 6.5 (5.0-9.0) Ur Specific [place] 1.020 (1.005-1.025) Urine Protein 300 (3+) H (Neg-Trace) mg/dL Urine Glucose (UA) >=1000 H (Negative) mg/dL Urine Ketones Negative (Negative) mg/dL Urine Blood Moderate (2+) H (Negative) Urine Nitrite Negative (Negative) Ur Leukocyte Esterase Moderate (2+) H (Negative) Urine RBC 6-10 H (0-2) /HPF Urine WBC >50 (0-5) /HPF Ur Squamous Epith Cells 0-2 (0-2) /HPF Urine Bacteria 4+ (None Seen) Hyaline Casts 0-2 (0-2) /LPF Radiology Impression Radiologist Impression: CT angiography abdomen and pelvis. 3D Postprocessing. Comparison: Report from CT dated 04/17/2022. Images are not provided/available at this time. Findings: There is a moderate sized hiatal hernia. There is mild bibasilar atelectasis. There is a sharply demarcated region of nonenhancement in the medial portion of the spleen consistent with a splenic infarct. The infarct is roughly involving 25% of the splenic parenchyma. The main splenic artery is atherosclerotic, but patent. There appears to be thrombosis of a small splenic artery branch extending to the infarct. The liver, gallbladder, pancreas, adrenal glands, and kidneys are unremarkable. There is a moderate amount of stool in the colon. There is no bowel obstruction. Stomach and small bowel are unremarkable. There is no free fluid or free air. There are no enlarged lymph nodes. Uterus and adnexa are grossly unremarkable. The bladder is mildly distended. There is atherosclerotic plaque throughout the abdominal aorta causing less than 50% stenosis distally. The celiac, superior mesenteric, and bilateral renal arteries are patent without significant stenosis. There appears to be moderate stenosis of the origin of the inferior mesenteric artery. There is a patent stent in the right common iliac artery. There is occlusion of the bilateral internal iliac arteries. The superficial femoral arteries are occluded bilaterally. There is a partially visualized left femoral bypass graft. There is no fracture or suspicious lytic or sclerotic lesion. There is lower lumbar facet osteoarthritis. There is degenerative grade 1 anterolisthesis of L4 on L5. IMPRESSION: 1. Findings consistent with a splenic infarct as described above. 2. Chronic findings as above. This document has been electronically signed by: Jorje Taveras MD on 08/27/2024 02:43:11 Medications Administered Discontinued Medications Generic Name Dose Route Start Last Admin Trade Name Royalq PRN Reason Stop Dose Admin Amitriptyline HCl 50 mg 08/27/24 21:00 08/27/24 20:25 Amitriptyline Hcl 50 Mg Tablet PO 50 mg BEDTIME JORY Administration Aspirin 81 mg 08/28/24 09:00 08/28/24 07:48 Aspirin Enteric Coated 81 Mg Tablet.Dr PO 81 mg DAILY JORY Administration Calcium Carbonate 750 mg 08/27/24 06:58 08/27/24 15:16 Calcium Carbonate 750 Mg Tab.Chew PO 750 mg Q4H PRN Administration Heartburn Carvedilol 25 mg 08/27/24 21:00 08/28/24 07:31 Carvedilol 25 Mg Tablet PO 25 mg BID JORY Administration Protocol Ceftriaxone Sodium 1 gm 08/27/24 08:00 08/28/24 07:29 Ceftriaxone Sodium 1 Gm Vial IVPUSH 1 gm Q24H JORY Administration Clopidogrel Bisulfate 75 mg 08/28/24 09:00 08/28/24 07:48 Clopidogrel Bisulfate 75 Mg Tablet PO 75 mg DAILY JORY Administration Docusate Sodium 100 mg 08/27/24 21:00 08/28/24 07:30 Docusate Sodium 100 Mg Capsule PO 100 mg BID JORY Administration Enoxaparin Sodium 70 mg 08/27/24 08:00 08/28/24 07:30 Enoxaparin Sodium 80 Mg/0.8 Ml Syringe SUBCUT 70 mg Q12H JORY Administration Escitalopram Oxalate 20 mg 08/27/24 18:00 08/27/24 17:12 Escitalopram Oxalate 20 Mg Tablet PO 20 mg DAILY@1800 JORY Administration Fluticasone Propionate 2 spray 08/28/24 09:00 08/28/24 07:31 Fluticasone Propionate Nasal 16 Gm [place] NOSTRIL-B 2 spray DAILY JORY Administration Fluticasone Propionate 1 puff 08/27/24 20:00 08/28/24 08:24 Fluticasone Propionate 100 Mcg Blst.W.Dev INHALE 1 puff RBID JORY Administration Gabapentin 600 mg 08/27/24 21:00 08/28/24 07:30 Gabapentin 600 Mg Tablet PO 600 mg BID JORY Administration Hydrochlorothiazide 50 mg 08/28/24 09:00 08/28/24 07:30 Hydrochlorothiazide 50 Mg Tablet PO 50 mg DAILY JORY Administration Protocol Hydromorphone HCl 1 mg 08/27/24 04:02 08/27/24 04:09 Hydromorphone Hcl 1 Mg/Ml Syringe IVPUSH 08/27/24 04:03 1 mg ONCE ONE Administration Protocol Hydromorphone HCl 0.5 mg 08/27/24 06:58 08/27/24 20:25 Hydromorphone Hcl 0.5 Mg/0.5 Ml Syringe IVPUSH 0.5 mg Q4H PRN Administration Pain, Severe (Pain Scale 7-10) Protocol Lactated Ringer's 1,000 mls @ 100 mls/hr 08/27/24 07:00 08/28/24 12:26 Lr IVCONT Infused .Q10H JORY Infusion Insulin Human Lispro 0 unit 08/27/24 07:30 08/27/24 14:09 Insulin Lispro 100 Unit/Ml 3 Ml Vial SUBCUT Not Given Q6H [facility] Protocol Insulin Human Lispro 0 unit 08/27/24 17:30 08/28/24 11:39 Insulin Lispro 100 Unit/Ml 3 Ml Vial SUBCUT 2 unit QIDACHS [facility] Administration Protocol Iohexol 80 ml 08/27/24 01:17 08/27/24 01:18 Iohexol 350 Mg/Ml 100 Ml Infus..Btl IV 08/27/24 01:18 80 ml ONCE ONE Administration Isosorbide Mononitrate 30 mg 08/28/24 09:00 08/28/24 07:30 Isosorbide Mononitrate 30 Mg Tab.Er.24h PO 30 mg DAILY [facility] Administration Protocol Lisinopril 40 mg 08/28/24 09:00 08/28/24 07:30 Lisinopril 40 Mg Tablet PO 40 mg DAILY [facility] Administration Protocol Loratadine 10 mg 08/28/24 09:00 08/28/24 07:30 Loratadine 10 Mg Tablet PO 10 mg DAILY JORY Administration Mirtazapine 45 mg 08/27/24 21:00 08/27/24 20:24 Mirtazapine 15 Mg Tablet PO 45 mg BEDTIME [facility] Administration Morphine Sulfate 4 mg 08/27/24 00:09 08/27/24 00:41 Morphine Sulfate 4 Mg/Ml Cartridge IVPUSH 08/27/24 00:10 4 mg ONCE ONE Administration Protocol Nifedipine 60 mg 08/27/24 00:08 08/27/24 02:09 Nifedipine Er 30 Mg Tab.Er.24 PO 08/27/24 00:09 60 mg ONCE ONE Administration Protocol Nifedipine 90 mg 08/27/24 21:00 08/27/24 20:24 Nifedipine Er 90 Mg Tab.Er.24 PO 90 mg BEDTIME [facility] Administration Protocol Omeprazole 40 mg 08/27/24 17:00 08/28/24 07:33 Omeprazole 40 Mg Capsule.Dr PO 40 mg BIDWM@0800,1700 [facility] Administration Ondansetron HCl 4 mg 08/27/24 00:09 08/27/24 00:41 Ondansetron Hcl 4 Mg/2 Ml Vial IVPUSH 08/27/24 00:10 4 mg ONCE ONE Administration Ondansetron HCl 4 mg 08/27/24 06:58 08/27/24 20:24 Ondansetron Hcl 4 Mg/2 Ml Vial IVPUSH 4 mg Q8H PRN Administration Nausea and Vomiting Oxycodone HCl 5 mg 08/27/24 06:58 08/27/24 09:45 Oxycodone Hcl Immed Release 5 Mg Tablet PO 5 mg Q6H PRN Administration Pain, Moderate(Pain Scale 4-6) Sodium Chloride 3 ml 08/27/24 08:00 08/28/24 07:31 0.9 % Sodium Chloride Flush 3 Ml Syringe IVFLUSH Not Given QSHIFT [facility] Discharge Plan Discharge Clinical Impression: Epigastric abdominal pain, Splenic infarct Patient Disposition: Admitted As Inpatient Interventions: Admission Worksheet (ED) Last Done: 08/27/24 07:46 Discharge Date/Time: 08/27/24 08:57
[2024-08-27 00:26] LABS: MANUAL DIFF FLAG NO
[2024-08-27 00:29] LABS: Hematocrit 32.2 % (37.0-47.0); Hemoglobin 10.9 g/dl (12.0-16.0); Imm Gran Abs Auto 0.02 X10*3/uL (0.00-0.03); Imm Gran Pct Auto 0.2 % (0.0-0.4); Lymphocytes Absolute Auto 1.5 X10*3/uL (1.2-4.9); Mean Corpuscular HGB Conc 33.9 g/dl (31.0-35.0); Mean Corpuscular Hemoglobin 29.5 pg (27.0-33.0); Mean Corpuscular Volume 87.0 fL (80.0-98.0); NRBC Abs Auto 0.000 X10*3/uL (0.0-0.012); NRBC Pct Auto 0.0 /100WBC (0.0-0.2); Platelet Count 290 X10*3/uL (160-400); Red Blood Count 3.70 X10*6/uL (4.20-5.50); White Blood Count 8.1 X10*3/uL (4.8-10.8)
[2024-08-27 00:30] LABS: Appearance Urine Turbid; Glucose Urine UA >=1000 mg/dL (Negative); PH 6.5 (5.0-9.0); Specific Gravity - Urine 1.020 (1.005-1.025); UMIC TRIGGER UACC YES
[2024-08-27 00:48] LABS: UACC Culture Trigger YES
[2024-08-27 01:04] LABS: Troponin-I High Sensitivity 5.7 ng/L (<3.5-17.0)
[2024-08-27 01:06] LABS: Alanine Aminotransferase < 6 U/L (0-31); Albumin Level 3.2 g/dL (3.5-5.0); Alkaline Phosphatase 93 U/L (39-117); Anion Gap 9 (12-20); Aspartate Amino Transferase 16 U/L (5-31); Blood Urea Nitrogen 12 mg/dL (9-16); Calcium 8.4 mg/dL (8.4-10.2); Carbon Dioxide 27 mmol/L (22-29); Chloride 107 mmol/L (96-108); Creatinine Clr Calc Pharmacy 49.3; Estimated Glomerular Filt Rate 56; Lipase 8 U/L (8-78); Potassium 3.9 mmol/L (3.3-5.1); Sodium 139 mmol/L (135-145); Total Protein 5.9 g/dL (6.5-8.0)
[2024-08-27] MEDS: iohexoL 350 MG/ML 100 ML INFUS..BTL 80 ML IV (01:18)
[2024-08-27] MEDS: NIFEdipine ER 30 MG TAB.ER.24 60 MG PO (02:09)
[2024-08-27 02:56] LABS: Troponin-I High Sensitivity 5.2 ng/L (<3.5-17.0)
--- NOTE | 2024-08-27 07:00 | CA_ITS ---
Transthoracic Echocardiogram Patient (Last, First, Middle): Rocío Hallman, Gender: Female Date of : 1960 Age: 63 Procedure Date: 08/27/2024 Procedure Type: Transthoracic Echocardiogram Location: S3E Height: 152.4 cm Weight: 67.13 kg BSA: 1.64 m2 Heart Rate: 73 bpm BP: 169 / 69 mmHg Reconciling Clerk: TO/RC Referring MD: Monica Ridley PA-C Symptoms: splenic infarct r/o thrombus Study Quality: Adequate ECG Rhythm: Sinus Conclusions: - The left ventricular systolic function is normal. The calculated ejection fraction is 64% by biplane method. - Evidence suggests grade II (moderate) diastolic dysfunction. - There is no evidence of interatrial shunt by agitated saline. - There is moderate calcification of the aortic valve. There is mild to moderate aortic valve stenosis. - There is moderate mitral annular calcification. - Echolucent structure in liver,5.8x3.3cm, possibly cystic. Consider dedicated ultrasound. Findings Left Ventricle Normal left ventricular cavity size. There is normal left ventricular wall thickness. The left ventricular systolic function is normal. The calculated ejection fraction is 64% by biplane method. There is no evidence of regional wall motion abnormalities. Evidence suggests grade II (moderate) diastolic dysfunction. Right Ventricle Normal right ventricular cavity size and systolic function. Atria The left atrium is mildly dilated. There is no evidence of interatrial shunt by agitated saline. The right atrium is normal in size. With rest and valsalva. Aortic Valve There is moderate calcification of the aortic valve. There is mild to moderate aortic valve stenosis. There is no aortic valve regurgitation. Dimensionless index 0.43. Mitral Valve There is moderate mitral annular calcification. There is no mitral valve regurgitation. There is no mitral valve stenosis. Pulmonic Valve The pulmonic valve is likely normal. Tricuspid Valve Normal tricuspid valve structure. There is trace tricuspid valve regurgitation. There is no evidence of pulmonary hypertension. Great Vessels The asc aorta is normal in size. Venous The inferior vena cava is normal in size and collapses greater than 50% with inspiration. Pericardium/Pleural There is no evidence of pericardial effusion. Prior Study Comparison No significant change compared to prior study dated: 10/25/2023. Measurements 2D Linear Measurements IVSd: 0.93 0.6-0.9/0.6-1.0 cm LVIDd: 4.94 3.9-5.3/4.2-5.9 cm LVIDd Index: 3.01 2.4-3.2/2.2-3.1 cm/m2 LVIDs: 2.58 2.0-3.6 cm LVPWd: 0.81 0.7-1.1 cm LA Diam: 3.80 2.7-3.8/3.0-4.0 cm LAIDs Index: 2.32 1.5-2.3 cm/m2 LV Mass: 184.62 67-162/88-224 g LV Mass Index: 112.58 43-95/49-115 g/m2 LVOT Diam: 2.00 3.0+(-)1.3 cm 2D Systolic Function EF 4C: 62.50 >55% EF 2C: 67.10 >55% EF BiP: 63.70 >55% Mitral Valve MV Pk E: 1.10 MV PK A: 0.95 MV Decel Time: 207.00 E/A: 1.20 E'Lateral: 5.77 E'Medial: 5.33 E/E' Med: 20.60 E/E' Lat: 19.10 PHT: 61.00 MVA PHT: 3.61 Decel [place]: 5.32 Aortic Valve AoV Pk Kuldip: 2.36 AoV Mn Kuldip: 1.65 AoV VTI: 0.58 AoV Pk Grad: 22.00 Aov Mn Grad: 12.00 YESIKA Cont.VTI: 1.31 LVOT LVOT Pk Kuldip: 1.02 LVOT Mn Kuldip: 0.68 LVOT VTI: 0.24 LVOT Pk Grad: 4.00 LVOT Mn Grad: 2.00 LVOT Diam: 2.00 LVOT Area: 3.14 Diastolic Function MV Pk E: 1.10 MV Pk A: 0.95 E/A: 1.20 E'Medial: 5.33 E/E' Med: 20.60 E' Laterial: 5.77 E/E' Lat: 19.10 Right Ventricle TAPSE (mm): 33.80 TVS' Kuldip: 13.90 Tricuspid Valve RA Press: 3.00 Great Vessels Aorta Sinus of Valsalva: 3.14 2.0-3.5 cm Ao Asc: 3.60 2.1-3.4 cm Updated in Other Vendor System with Status of Final Clifton Vizcaino MD electronically signed on 08/27/2024 3:43:14 PM with status of Final
--- NOTE | 2024-08-27 07:19 | PM.IMHP ---
History of Present Illness Date of Service: 08/27/24 Attending physician on admission: Bassam Mcgee Chief Complaint: abd pain Patient is a 63-year-old [place]er-speaking female with a past medical history significant for CAD, PAD, type 2 diabetes on insulin, and hypertension, presented to the ED due to epigastric pain radiating to the back rating her pain an 8/10 on admission. She denies any trauma or recent infection. She had some nausea and vomiting about 3 times yesterday due to her pain but denies any hematemesis and reports her nausea has improved and she has not had any further vomiting. She also reports suprapubic discomfort and dysuria. She denies any chest pain, shortness of breath, headache, URI symptoms, or gross hematuria. She is a poor historian. Review of Systems Constitutional: Constitutional: Denies body ache(s), Denies chills, Denies fatigue, Denies fever(s) and Denies headache(s) Eyes: Eyes: Denies change in vision ENT: Denies headache(s), Denies nasal congestion and Denies sore throat Cardiovascular: Cardiovascular: Denies chest pain, Denies rapid heart rate, Denies leg edema, Denies lightheadedness and Denies dyspnea Respiratory: Respiratory: Denies chest congestion, Denies cough, Denies dyspnea and Denies wheezing Gastrointestinal: Gastrointestinal: Reports abdominal pain, Denies diarrhea, Reports nausea, Reports vomiting and Denies hematemesis Genitourinary: Genitourinary: Denies hematuria, Reports dysuria and Denies urinary urgency Musculoskeletal: Musculoskeletal: Denies myalgias Integumentary/Breasts: Skin/Breast: Denies rash Neurologic: Denies confusion and Denies headache(s) Psychiatric: Psychiatric: Denies confusion Endocrine: Endocrine: Denies fatigue Hematologic/Lymphatic: Hematologic/Lymphatic: Denies easy bleeding and Denies easy bruising Allergic/Immunologic: Allergic/Immunologic: Denies wheezing [facility] Medical History NSTEMI (non-ST elevated myocardial infarction) Mild aortic valve stenosis LORE (obstructive sleep apnea) Chronic low back pain Lumbar spinal stenosis HTN (hypertension) Vitamin D deficiency HLD (hyperlipidemia) T2DM (type 2 diabetes mellitus) H. pylori infection CAD (coronary artery disease) Cyst (solitary) of breast Kidney calculi Arthritis Asthma HTN (hypertension) Diabetes Functional capacity: independent ambulation Family History Mother Diabetes Liver cancer Surgical History History of right-sided carotid endarterectomy (~11/2022) S/P aortogram History of esophagogastroduodenoscopy (EGD) Hx of colonoscopy History of breast surgery History of cardiac cath Social History Household Members: Children Household Members Other:: friend and adult son Housing: Apartment Are you a primary medical care manager to a significant other at home: No Do you presently have visiting nurse or other home services: Yes (RN 2x/week) Alcohol intake: never Comment: refuses bed alarm Patient Tobacco Use Status: Current everyday Tobacco user Tobacco use type: Cigarette Cigarette Packs Per Day: 1 Cigarettes Per Day: 4 Years Smoked: 30 Smoked in Last 30 Days: Yes e-Cigarette/Vaping Use: Currently Using Second Hand Smoke Exposure: Yes Use of substances other than those prescribed or required for medical reasons: No Advance Directives: Yes Advance Directives on File: Yes Advance Directives Date on File: 09/26/23 service: No Current occupational status: unemployed and disabled Narrative: smokes 1 cigarette/day, no alcohol or drug use Meds Allergies Allergy/AdvReac Type Severity Reaction Status Date / Time latex (LATEX) Allergy Severe RASH Verified 08/26/24 23:35 naproxen (From NAPROSYN) AdvReac Intermediate TACHYCARDIA Verified 08/26/24 23:35 Active Medications: Current Medications Acetaminophen (Acetaminophen 325 Mg Tablet) 975 mg PO Q6H PRN PRN Reason: Pain, Mild 1-3,fever,headache Calcium Carbonate (Calcium Carbonate 750 Mg Tab.Chew) 750 mg PO Q4H PRN PRN Reason: Heartburn Enoxaparin Sodium (Enoxaparin Sodium 120 Mg/0.8 Ml Syringe) 105 mg SUBCUT Q12H JORY Hydromorphone HCl (Hydromorphone Hcl 0.5 Mg/0.5 Ml Syringe) 0.5 mg IVPUSH Q4H PRN; Protocol PRN Reason: Pain, Severe (Pain Scale 7-10) Lactated Ringer's (Lr) 1,000 mls @ 100 mls/hr IVCONT .Q10H [facility] Magnesium Hydroxide (Milk Of Magnesia 30 Ml Oral.Susp) 30 ml PO DAILY PRN PRN Reason: Constipation Melatonin (Melatonin 3 Mg Tablet) 6 mg PO BEDTIME PRN PRN Reason: Insomnia Ondansetron HCl (Ondansetron Hcl 4 Mg/2 Ml Vial) 4 mg IVPUSH Q8H PRN PRN Reason: Nausea and Vomiting Oxycodone HCl (Oxycodone Hcl Immed Release 5 Mg Tablet) 5 mg PO Q6H PRN PRN Reason: Pain, Moderate(Pain Scale 4-6) Sodium Chloride (0.9 % Sodium Chloride Flush 3 Ml Syringe) 3 ml IVFLUSH QSHIFT [facility] Home Medications ?Medication ?Instructions ?Recorded ?Confirmed ?Last Taken ?Type aspirin 81 mg tablet,delayed 81 mg PO DAILY 01/02/20 08/08/24 10/24/23 History release (Adult Low Dose Aspirin) atorvastatin 80 mg tablet (Lipitor) 80 mg PO BEDTIME 01/02/20 08/08/24 10/24/23 History escitalopram oxalate 20 mg tablet 20 mg PO DAILY@1800 01/02/20 08/08/24 10/24/23 History (Lexapro) mirtazapine 45 mg tablet 45 mg PO BEDTIME 01/02/20 08/08/24 10/24/23 History multivitamin 1 tab PO DAILY 01/02/20 08/08/24 10/24/23 History blood sugar diagnostic (FreeStyle #10 ea 03/30/21 08/08/24 10/24/23 History Lite Strips) insulin degludec 100 unit/mL (3 10 unit subcut DAILY 10/03/22 08/08/24 10/24/23 History mL) subcutaneous pen (Tresiba FlexTouch U-100 insulin) omeprazole 40 mg capsule,delayed 20 mg PO DAILY@0630 PRN Heartburn 11/15/23 08/08/24 Unknown History release docusate sodium 100 mg capsule 100 mg PO BID 01/30/24 08/08/24 Unknown History ezetimibe 10 mg tablet 10 mg PO DAILY 04/11/24 08/08/24 Unknown History ferrous fumarate 325 mg (106 mg 325 mg PO BID 04/11/24 08/08/24 Unknown History iron) tablet amitriptyline 50 mg tablet 50 mg PO BEDTIME PRN 08/08/24 08/08/24 Unknown History empagliflozin 12.5 mg-metformin 1 tab PO 08/08/24 08/08/24 Unknown History 1,000 mg tablet (Synjardy) gabapentin 600 mg tablet 600 mg PO BID 08/08/24 08/08/24 Unknown History hydrochlorothiazide 50 mg tablet 50 mg PO QAM 08/08/24 Unknown History prednisone 20 mg tablet 20 mg PO DAILY 08/08/24 08/08/24 Unknown History Physical Exam Vital Signs and Narrative: Vital Signs: Last Vital Signs Temp 97.8 F 08/27/24 04:13 Pulse 68 08/27/24 05:53 Resp 16 08/27/24 05:53 BP 169/69 H 08/27/24 05:53 Pulse Ox 99 08/27/24 05:53 O2 Del Method Room Air 08/27/24 05:53 BMI result Body Mass Index 28.9 General: AOx3, no acute distress, seen with dehorner Resp: CTA bilaterally, no wheezing or crackles CVS: RRR, +murmur GI: +BS, mild tendernes RUQ with deep palpation, no distention Skin: Warm, dry Neuro: Cranial nerves II-XII grossly intact bilaterally. Motor grossly intact bilaterally Extremities: No LE edema Psych: Appropriate affect Const: General: No confusion Orientation/consciousness: No confusion Neuro: General: No confusion Results Labs 08/27/24 00:20 08/27/24 00:20 Labs: Laboratory Results - last 24 hr 08/27/24 08/27/24 00:15 00:20 MCV 87.0 MCH 29.5 MCHC 33.9 RDW 13.6 Plt Count 290 MPV 8.9 L Immature Gran % (Auto) 0.2 Neut % (Auto) 70.2 Lymph % (Auto) 18.7 L Lynn % (Auto) 6.8 Eos % (Auto) 3.6 Baso % (Auto) 0.5 Lymph # (Auto) 1.5 Lynn # (Auto) 0.6 Eos # (Auto) 0.3 Baso # (Auto) 0.0 Abs Immat Gran (auto) 0.02 Absolute Neuts (auto) 5.7 Absolute Nucleated RBC 0.000 Nucleated RBC % (auto) 0.0 Anion Gap 9 L Estim Creat Clear Calc 49.3 Estimated GFR 56 Random Glucose 279 H Lactic Acid 0.7 Calcium 8.4 D Total Bilirubin 0.1 AST 16 ALT < 6 Alkaline Phosphatase 93 Total Protein 5.9 L Albumin 3.2 L Lipase 8 Urine Color Yellow Urine Appearance Turbid Urine pH 6.5 Ur Specific [place] 1.020 Urine Protein 300 (3+) H Urine Glucose (UA) >=1000 H Urine Ketones Negative Urine Blood Moderate (2+) H Urine Nitrite Negative Ur Leukocyte Esterase Moderate (2+) H Urine RBC 6-10 H Urine WBC >50 Ur Squamous Epith Cells 0-2 Urine Bacteria 4+ Hyaline Casts 0-2 Assessment and Plan (1) Splenic infarct: Status: Acute (2) Intractable abdominal pain: Status: Acute (3) Chronic anemia: Status: Acute (4) UTI (urinary tract infection): Status: Acute (5) Microscopic hematuria: Status: Acute Plan Patient is a 63-year-old [place]er-speaking female with a past medical history significant for CAD, PAD, type 2 diabetes on insulin, and hypertension, presented to the ED due to epigastric pain radiating to the back rating her pain an 8/10 on admission. Splenic infarct, intractable abd pain - no leukocytosis or fever, no sign of infection - CTA abd/pelvis with thrombosis of the small splenic artery branch extending to the infarct - NPO - LR 100ml/hr - therapuetic lovenox - pain management with oxycodone and Dilaudid - consider surgical eval if pain uncontrollable - echo to r/o thrombus - monitor CBC and BMP chronic anemia, normocytic - stable, hemoglobin 10.9, hematocrit 32.2 UTI, Microscopic hematuria - UA +, culture pending - ceftriaxone - monitor CBC T2DM - pt poor historian, insulin unclear, await med rec - sliding scale Q6H as pt is NPO PAD/CAD - hold aspirin, plavix, on therapeutic lovenox HTN - continue home meds med rec pending full code VTE prophy: lovenox Patient with intractable abdominal pain secondary to splenic infarct requiring admission for at least 2 midnights stay for IV pain management. Quality Stroke Does the patient have a stroke diagnosis?: No VTE Prior VTE?: No VTE Risk Level:: Medical - moderate - high VTE Device Contraindication: Treatment Not Indicated VTE Drug Contraindication: N/A - Med Ordered
[2024-08-27 07:55] LABS: Glucose, Whole Blood 179 mg/dL (60-115)
[2024-08-27] MEDS: Lactated Ringers 1,000 ML 100 ML IVCONT ×2 (08:06→17:12)
--- NOTE | 2024-08-27 08:56 | PHA.MEDREC ---
Addendum entered by Terrance Zavaleta RPh 08/27/24 09:57: Reviewed by [facility]. Original Note: Pharmacy Consult ? Medication Reconciliation Pharmacy has completed the medication reconciliation. Spoke with pt, utilizing servicen[employer] administrator services and pt was able to confirm her medications. Pt states she is not taking the Diclofenac Gel anymore. Pt confirmed she takes her Ferrous Sulfate tablet BID as needed due to it making the pt constipated. Pt confirmed her Tresiba insulin, confirming she injects 14 units daily. Pt confirmed her Ozempic once a week on Fridays and confirmed she took it this past Monday.
[2024-08-27 09:09] LABS: INTERNATIONAL NORM RATIO 1.0 (0.9-1.1); Prothrombin Time 11.1 SEC (10.9-12.4)
[2024-08-27 09:12] LABS: Partial Thromboplastin Time 33.4 SEC (26.0-36.8)
[2024-08-27 09:15] LABS: Hematocrit 31.7 % (37.0-47.0); Hemoglobin 10.5 g/dl (12.0-16.0); Mean Corpuscular HGB Conc 33.1 g/dl (31.0-35.0); Mean Corpuscular Hemoglobin 29.0 pg (27.0-33.0); Mean Corpuscular Volume 87.6 fL (80.0-98.0); NRBC Abs Auto 0.000 X10*3/uL (0.0-0.012); NRBC Pct Auto 0.0 /100WBC (0.0-0.2); Platelet Count 315 X10*3/uL (160-400); Red Blood Count 3.62 X10*6/uL (4.20-5.50); White Blood Count 8.1 X10*3/uL (4.8-10.8)
[2024-08-27 09:18] LABS: Glucose, Whole Blood 118 mg/dL (60-115)
[2024-08-27] MEDS: oxyCODONE HCl Immed Release 5 MG TABLET PO (09:45)
[2024-08-27] MEDS: 0.9 % Sodium Chloride Flush 3 ML SYRINGE IVFLUSH ×2 (09:45→20:26)
--- NOTE | 2024-08-27 10:22 | PM.EVENT ---
Event Note Date of Service: 08/27/24 Event Note: 63-year-old [place]-speaking female with a past medical history significant for CAD, PAD, type 2 diabetes on insulin, and hypertension, presented to the ED due to epigastric pain radiating to the back rating her pain an 8/10 on admission. Splenic infarct, intractable abd pain no leukocytosis or fever, no sign of infection CTA abd/pelvis with thrombosis of the small splenic artery branch extending to the infarct LR 100ml/hr therapuetic lovenox pain management with oxycodone and Dilaudid surgical eval pending echo to r/o thrombus clear diet chronic anemia, normocytic stable, hemoglobin 10.9, hematocrit 32.2 UTI, Microscopic hematuria UA +, culture pending ceftriaxone monitor CBC T2DM pt poor historian, insulin unclear ss PAD/CAD hold aspirin, plavix, on therapeutic lovenox HTN continue home meds full code VTE prophy: lovenox Time Spent With Patient Time: Total time managing care of this patient today ____ minutes.
--- NOTE | 2024-08-27 11:10 | MHC.CLN ---
CONSULT FOR WT LOSS CURRENT WT 65KG (08/27/24) PREVIOUS WT 63.5KG (08/29/23) PT'S WT IS STABLE X1 YEAR AND REMAINS OVER WT FOR HT CONTINUE CURRENT CARE PLAN
[2024-08-27 13:44] LABS: Glucose, Whole Blood 160 mg/dL (60-115)
--- NOTE | 2024-08-27 15:53 | PM.CNGS ---
History of Present Illness Consult details Consult date: 08/27/24 Reason for consult: abdominal pain Requesting physician: Sri Reynolds Narrative: 63-year-old female patient presenting to the emergency department today with complaints of abdominal pain mainly in the epigastrium and left upper quadrant. She denies a previous history of similar pain but reports the pain began yesterday and increased in severity since then. She has a past history is significant for coronary artery disease, PAD, type 2 diabetes and hypertension. She denies chest pain but did report rapid heart rate. The pain was associated with some nausea and vomiting yesterday but no bleeding. Laboratories revealed a normal WBC but an anemia which has not changed significantly. A CT angiogram of the abdomen and pelvis performed today revealed a thrombus involving a small splenic artery branch with a resulting wedge of splenic infarct. Transthoracic echocardiogram revealed normal left ventricular systolic function (EF 64%) with no evidence of intra-atrial shunt. There is moderate calcification in the aortic valve with [id number] aortic valve stenosis. There is moderate mitral annular calcification. This afternoon the patient reports some pain but it is improved with the current pain medication. She has been placed on therapeutic Lovenox. Surgical consultation was requested for further management of this splenic infarct. Review of Systems Review of Systems: Yes all other systems are reviewed and are negative PMFSH Past Medical History Medical History NSTEMI (non-ST elevated myocardial infarction) Mild aortic valve stenosis LORE (obstructive sleep apnea) Chronic low back pain Lumbar spinal stenosis HTN (hypertension) Vitamin D deficiency HLD (hyperlipidemia) T2DM (type 2 diabetes mellitus) H. pylori infection CAD (coronary artery disease) Cyst (solitary) of breast Kidney calculi Arthritis Asthma HTN (hypertension) Diabetes Family History Family History Mother Diabetes Liver cancer Surgical History Surgical History History of right-sided carotid endarterectomy (~11/2022) S/P aortogram History of esophagogastroduodenoscopy (EGD) Hx of colonoscopy History of breast surgery History of cardiac cath Social History Social History Household Members: Family and Children Household Members Other:: friend and adult son Housing: House Are you a primary workforce investment act career manager to a significant other at home: No Do you presently have visiting nurse or other home services: Yes (RN 2x/week) Alcohol intake: never Comment: refuses bed alarm Patient Tobacco Use Status: Current everyday Tobacco user Tobacco use type: Cigarette Cigarette Packs Per Day: 1 Cigarettes Per Day: 4 Years Smoked: 30 e-Cigarette/Vaping Use: Currently Using Second Hand Smoke Exposure: Yes Advance Directives Date on File: 09/26/23 service: No Current occupational status: unemployed and disabled Meds Allergies Allergy/AdvReac Type Severity Reaction Status Date / Time latex (LATEX) Allergy Severe RASH Verified 08/26/24 23:35 naproxen (From NAPROSYN) AdvReac Intermediate TACHYCARDIA Verified 08/26/24 23:35 Active Medications: Current Medications Acetaminophen (Acetaminophen 325 Mg Tablet) 975 mg PO Q6H PRN PRN Reason: Pain, Mild 1-3,fever,headache Albuterol Sulfate (Albuterol Sulfate 90 Mcg 8 Gm Inhaler) 2 puff INHALE Q6H PRN PRN Reason: Shortness Of Breath Or Wheezing Amitriptyline HCl (Amitriptyline Hcl 50 Mg Tablet) 50 mg PO BEDTIME [facility] Benzonatate (Benzonatate 100 Mg Capsule) 200 mg PO TID PRN PRN Reason: Cough Calcium Carbonate (Calcium Carbonate 750 Mg Tab.Chew) 750 mg PO Q4H PRN PRN Reason: Heartburn Last Admin: 08/27/24 15:16 Dose: 750 mg Carvedilol (Carvedilol 25 Mg Tablet) 25 mg PO BID [facility]; Protocol Ceftriaxone Sodium (Ceftriaxone Sodium 1 Gm Vial) 1 gm IVPUSH Q24H [facility] Last Admin: 08/27/24 08:01 Dose: 1 gm Dextrose (Dextrose 50 % 25 Gm/50 Ml Syringe) 25 gm IVPUSH Q15M PRN; Protocol PRN Reason: per Hypoglycemia Standing Ord. Docusate Sodium (Docusate Sodium 100 Mg Capsule) 100 mg PO BID [facility] Enoxaparin Sodium (Enoxaparin Sodium 80 Mg/0.8 Ml Syringe) 70 mg SUBCUT Q12H [facility] Last Admin: 08/27/24 08:04 Dose: 70 mg Escitalopram Oxalate (Escitalopram Oxalate 20 Mg Tablet) 20 mg PO DAILY@1800 [facility] Fluticasone Propionate (Fluticasone Propionate Nasal 16 Gm [place]) 2 spray NOSTRIL-B DAILY [facility] Fluticasone Propionate (Fluticasone Propionate 100 Mcg Blst.W.Dev) 1 puff INHALE RBID [facility] Gabapentin (Gabapentin 600 Mg Tablet) 600 mg PO BID [facility] Glucose (Glucose Gel 15 Gm Gel..Gram.) 15 gm PO Q15M PRN; Protocol PRN Reason: per Hypoglycemia Standing Ord. Hydrochlorothiazide (Hydrochlorothiazide 50 Mg Tablet) 50 mg PO DAILY [facility]; Protocol Hydromorphone HCl (Hydromorphone Hcl 0.5 Mg/0.5 Ml Syringe) 0.5 mg IVPUSH Q4H PRN; Protocol PRN Reason: Pain, Severe (Pain Scale 7-10) Last Admin: 08/27/24 15:12 Dose: 0.5 mg Lactated Ringer's (Lr) 1,000 mls @ 100 mls/hr IVCONT .Q10H [facility] Last Admin: 08/27/24 08:06 Dose: 100 mls/hr Insulin Human Lispro (Insulin Lispro 100 Unit/Ml 3 Ml Vial) 0 unit SUBCUT Q6H [facility]; Protocol Last Admin: 08/27/24 14:09 Dose: Not Given Isosorbide Mononitrate (Isosorbide Mononitrate 30 Mg Tab.Er.24h) 30 mg PO DAILY [facility]; Protocol Lisinopril (Lisinopril 40 Mg Tablet) 40 mg PO DAILY [facility]; Protocol Loratadine (Loratadine 10 Mg Tablet) 10 mg PO DAILY [facility] Magnesium Hydroxide (Milk Of Magnesia 30 Ml Oral.Susp) 30 ml PO DAILY PRN PRN Reason: Constipation Melatonin (Melatonin 3 Mg Tablet) 6 mg PO BEDTIME PRN PRN Reason: Insomnia Mirtazapine (Mirtazapine 15 Mg Tablet) 45 mg PO BEDTIME [facility] Nifedipine (Nifedipine Er 90 Mg Tab.Er.24) 90 mg PO BEDTIME [facility]; Protocol Omeprazole (Omeprazole 40 Mg Capsule.Dr) 40 mg PO BIDWM@0800,1700 [facility] Ondansetron HCl (Ondansetron Hcl 4 Mg/2 Ml Vial) 4 mg IVPUSH Q8H PRN PRN Reason: Nausea and Vomiting Last Admin: 08/27/24 09:45 Dose: 4 mg Oxycodone HCl (Oxycodone Hcl Immed Release 5 Mg Tablet) 5 mg PO Q6H PRN PRN Reason: Pain, Moderate(Pain Scale 4-6) Last Admin: 08/27/24 09:45 Dose: 5 mg Sodium Chloride (0.9 % Sodium Chloride Flush 3 Ml Syringe) 3 ml IVFLUSH QSHIFT [facility] Last Admin: 08/27/24 09:45 Dose: 3 ml Home Medications ?Medication ?Instructions ?Recorded ?Confirmed ?Last Taken ?Type aspirin 81 mg tablet,delayed 81 mg PO DAILY 01/02/20 08/27/24 08/26/24 History release (Adult Low Dose Aspirin) atorvastatin 80 mg tablet (Lipitor) 80 mg PO BEDTIME 01/02/20 08/27/24 08/25/24 History escitalopram oxalate 20 mg tablet 20 mg PO DAILY@1800 01/02/20 08/27/24 08/25/24 History (Lexapro) mirtazapine 45 mg tablet 45 mg PO BEDTIME 01/02/20 08/27/24 08/25/24 History multivitamin 1 tab PO DAILY 01/02/20 08/27/24 08/26/24 History blood sugar diagnostic (FreeStyle #10 ea 03/30/21 08/08/24 10/24/23 History Lite Strips) insulin degludec 100 unit/mL (3 14 unit subcut DAILY 10/03/22 08/27/24 08/26/24 History mL) subcutaneous pen (Tresiba FlexTouch U-100 insulin) docusate sodium 100 mg capsule 100 mg PO BID 01/30/24 08/27/24 08/26/24 History ezetimibe 10 mg tablet 10 mg PO DAILY 04/11/24 08/27/24 08/26/24 History amitriptyline 50 mg tablet 50 mg PO BEDTIME 08/08/24 08/27/24 08/25/24 History empagliflozin 12.5 mg-metformin 1 tab PO BID 08/08/24 08/27/24 08/26/24 History 1,000 mg tablet (Synjardy) gabapentin 600 mg tablet 600 mg PO BID 08/08/24 08/27/24 08/26/24 History hydrochlorothiazide 50 mg tablet 50 mg PO DAILY 08/08/24 08/27/24 08/26/24 History acetaminophen 650 mg 650 mg PO Q8H 08/27/24 08/27/24 08/26/24 History tablet,extended release albuterol sulfate 90 mcg/actuation 2 puff inhalation Q6H PRN 08/27/24 08/27/24 Unknown History aerosol inhaler (Ventolin HFA) Shortness Of Breath Or Wheezing clopidogrel 75 mg tablet 75 mg PO DAILY 08/27/24 08/27/24 08/26/24 History [id number]-acetaminophen 30 ml PO Q4H PRN Cough 08/27/24 08/27/24 Unknown History 6.25 mg-30 [id number]/15mL oral liqd ferrous sulfate 325 mg (65 mg 325 mg PO BID PRN Iron Levels 08/27/24 08/27/24 Unknown History iron) tablet fluticasone propionate 50 2 spray intranasal DAILY 08/27/24 08/27/24 08/26/24 History mcg/actuation nasal spray,suspension isosorbide mononitrate 30 mg 30 mg PO DAILY 08/27/24 08/27/24 08/26/24 History tablet,extended release 24 hr lisinopril 40 mg tablet 40 mg PO DAILY 08/27/24 08/27/24 08/26/24 History loratadine 10 mg tablet 10 mg PO DAILY 08/27/24 08/27/24 08/26/24 History mometasone 100 mcg/actuation HFA 2 puff inhalation BID 08/27/24 08/27/24 08/26/24 History aerosol inhaler (Asmanex HFA) nicotine (polacrilex) 2 mg buccal 2 mg PO Q1-2H PRN Nicotine Cravings 08/27/24 08/27/24 Unknown History lozenge omeprazole 20 mg capsule,delayed 40 mg PO BIDWM@0800,1700 08/27/24 08/27/24 08/26/24 History release semaglutide 0.25 mg or 0.5 mg (2 0.5 mg subcut FR 08/27/24 08/27/24 08/23/24 History mg/3 mL) subcutaneous pen injector (Ozempic) Physical Exam Vital Signs: Vital Signs: Last Vital Signs Temp 97.2 F 08/27/24 15:23 Pulse 82 08/27/24 15:23 Resp 17 07/15/25 15:23 BP 164/70 H 08/27/24 15:23 Pulse Ox 97 08/27/24 15:23 O2 Del Method Room Air 08/27/24 15:23 BMI result Body Mass Index 28.0 Const: General: no acute distress Nutritional Appearance: well nourished Orientation/consciousness: patient oriented x3 Resp: Effort & Inspection: normal respiratory effort Auscultation: clear to auscultation bilaterally GI: Other: Soft, nondistended, mildly tender in the epigastrium and left upper quadrant. Also tender in the left flank. No rebound, guarding or rigidity. No scars or hernias. Skin: Other: Warm, dry, normal color, no rash Neuro: General: patient oriented x3 Extrem: Other: No edema Results Labs 08/27/24 08:18 08/27/24 00:20 Labs: Abnormal lab results 08/27/24 08/27/24 08/27/24 Range/Units 00:15 00:20 07:52 RBC 3.70 L (4.20-5.50) X10*6/uL Hgb 10.9 L (12.0-16.0) g/dl Hct 32.2 L (37.0-47.0) % MPV 8.9 L (9.4-12.3) fL Lymph % (Auto) 18.7 L (20-40) % Anion Gap 9 L (12-20) POC Glucose 179 H (60-115) mg/dL Random Glucose 279 H (60-115) mg/dL Total Protein 5.9 L (6.5-8.0) g/dL Albumin 3.2 L (3.5-5.0) g/dL Urine Protein 300 (3+) H (Neg-Trace) mg/dL Urine Glucose (UA) >=1000 H (Negative) mg/dL Urine Blood Moderate (2+) H (Negative) Ur Leukocyte Esterase Moderate (2+) H (Negative) Urine RBC 6-10 H (0-2) /HPF 08/27/24 08/27/24 08/27/24 Range/Units 08:18 09:15 13:41 RBC 3.62 L (4.20-5.50) X10*6/uL Hgb 10.5 L (12.0-16.0) g/dl Hct 31.7 L (37.0-47.0) % MPV 9.3 L (9.4-12.3) fL Lymph % (Auto) (20-40) % Anion Gap (12-20) POC Glucose 118 H 160 H (60-115) mg/dL Random Glucose (60-115) mg/dL Total Protein (6.5-8.0) g/dL Albumin (3.5-5.0) g/dL Urine Protein (Neg-Trace) mg/dL Urine Glucose (UA) (Negative) mg/dL Urine Blood (Negative) Ur Leukocyte Esterase (Negative) Urine RBC (0-2) /HPF Short CBC 08/27/24 08/27/24 Range/Units 00:20 08:18 WBC 8.1 8.1 (4.8-10.8) X10*3/uL Hgb 10.9 L 10.5 L (12.0-16.0) g/dl Hct 32.2 L 31.7 L (37.0-47.0) % Plt Count 290 315 (160-400) X10*3/uL BMP 08/27/24 00:20 Sodium 139 Potassium 3.9 Chloride 107 Carbon Dioxide 27 BUN 12 Creatinine 1.01 Calcium 8.4 D Liver Function 08/27/24 Range/Units 00:20 Total Bilirubin 0.1 (0.0-1.0) mg/dL AST 16 (5-31) U/L ALT < 6 (0-31) U/L Alkaline Phosphatase 93 (39-117) U/L Albumin 3.2 L (3.5-5.0) g/dL Urine 08/27/24 Range/Units 00:15 Urine Color Yellow Urine Appearance Turbid Urine pH 6.5 (5.0-9.0) Ur Specific [place] 1.020 (1.005-1.025) Urine Protein 300 (3+) H (Neg-Trace) mg/dL Urine Glucose (UA) >=1000 H (Negative) mg/dL All other labs normal. Assessment and Plan (1) Splenic infarct: Status: Acute Plan 63-year-old female patient presenting with epigastric and left upper quadrant abdominal pain found on workup to have a splenic artery thrombosis with an area of splenic infarct. A small wedge of infarct is confirmed on CT angio of the abdomen and pelvis. There was no evidence of bleeding or abscess formation at this time. The patient's abdominal pain appears better controlled this afternoon. No surgical intervention is recommended at this time. We will follow along during her hospitalization. Procedures Date of Service Date of Service: 08/27/24
[2024-08-27 17:23] LABS: Glucose, Whole Blood 129 mg/dL (60-115)
[2024-08-27] MEDS: Fluticasone Propionate 100 MCG BLST.W.DEV 1 PUFF INHALE (19:54)
[2024-08-27 21:15] LABS: Glucose, Whole Blood 204 mg/dL (60-115)
[2024-08-28 00:21] VITALS: BP 163/73; PULSE 70; RESP 18; TEMP 37.2; O2SAT 93
[2024-08-28] MEDS: Lactated Ringers 1,000 ML 100 ML IVCONT (02:20)
[2024-08-28 03:50] VITALS: BP 189/86; PULSE 75; RESP 18; TEMP 36.8; O2SAT 93
[2024-08-28 07:13] VITALS: PULSE 71; RESP 18; TEMP 36.2; O2SAT 95
--- NOTE | 2024-08-28 07:45 | P.PNGS_ITS ---
Subjective Subjective Date of Service: 08/28/24 Interval history: Patient reports decreased abdominal pain this morning, denies nausea and vomiting. Physical Exam 2 Vital Signs: Vital Signs: Last Vital Signs Temp 97.1 F 08/28/24 07:13 Pulse 71 08/28/24 07:13 Resp 18 08/28/24 07:13 BP 189/86 H 08/28/24 03:50 Pulse Ox 95 08/28/24 07:13 O2 Del Method Room Air 08/28/24 07:13 BMI result Body Mass Index 28.0 Const: General: comfortable Nutritional Appearance: well nourished O rientation/consciousness: patient oriented x3 Resp: Effort & Inspection: normal respiratory effort GI: Other: Soft, nondistended, no tenderness in the left upper quadrant, minimal tenderness in the left flank, no rebound Inspection: Yes normal to inspection Neuro: General: patient oriented x3 Extrem: General: No edema Objective Data Active Medications Acetaminophen (Acetaminophen 325 Mg Tablet) 975 mg PO Q6H PRN PRN Reason: Pain, Mild 1-3,fever,headache Albuterol Sulfate (Albuterol Sulfate 90 Mcg 8 Gm Inhaler) 2 puff INHALE Q6H PRN PRN Reason: Shortness Of Breath Or Wheezing Amitriptyline HCl (Amitriptyline Hcl 50 Mg Tablet) 50 mg PO BEDTIME [facility] Last Admin: 08/27/24 20:25 Dose: 50 mg Documented By: MARILUZ Aspirin (Aspirin Enteric Coated 81 Mg Tablet.) 81 mg PO DAILY [facility] Atorvastatin Calcium (Atorvastatin Calcium 80 Mg Tablet) 80 mg PO BEDTIME [facility] Benzonatate (Benzonatate 100 Mg Capsule) 200 mg PO TID PRN PRN Reason: Cough Calcium Carbonate (Calcium Carbonate 750 Mg Tab.Chew) 750 mg PO Q4H PRN PRN Reason: Heartburn Last Admin: 08/27/24 15:16 Dose: 750 mg Documented By: JONATHON Carvedilol (Carvedilol 25 Mg Tablet) 25 mg PO BID [facility]; Protocol Last Admin: 08/28/24 07:31 Dose: 25 mg Documented By: JOSE LUIS Ceftriaxone Sodium (Ceftriaxone Sodium 1 Gm Vial) 1 gm IVPUSH Q24H [facility] Last Admin: 08/28/24 07:29 Dose: 1 gm Documented By: JOSE LUIS Clopidogrel Bisulfate (Clopidogrel Bisulfate 75 Mg Tablet) 75 mg PO DAILY [facility] Dextrose (Dextrose 50 % 25 Gm/50 Ml Syringe) 25 gm IVPUSH Q15M PRN; Protocol PRN Reason: per Hypoglycemia Standing Ord. Docusate Sodium (Docusate Sodium 100 Mg Capsule) 100 mg PO BID [facility] Last Admin: 08/28/24 07:30 Dose: 100 mg Documented By: JOSE LUIS Enoxaparin Sodium (Enoxaparin Sodium 80 Mg/0.8 Ml Syringe) 70 mg SUBCUT Q12H [facility] Last Admin: 08/28/24 07:30 Dose: 70 mg Documented By: JOSE LUIS Escitalopram Oxalate (Escitalopram Oxalate 20 Mg Tablet) 20 mg PO DAILY@1800 [facility] Last Admin: 08/27/24 17:12 Dose: 20 mg Documented By: JONATHON Fluticasone Propionate (Fluticasone Propionate Nasal 16 Gm [place]) 2 spray NOSTRIL-B DAILY [facility] Last Admin: 08/28/24 07:31 Dose: 2 spray Documented By: JOSE LUIS Fluticasone Propionate (Fluticasone Propionate 100 Mcg Blst.W.Dev) 1 puff INHALE RBID [facility] Last Admin: 08/27/24 19:54 Dose: 1 puff Documented By: SYL Gabapentin (Gabapentin 600 Mg Tablet) 600 mg PO BID [facility] Last Admin: 08/28/24 07:30 Dose: 600 mg Documented By: JOSE LUIS Glucose (Glucose Gel 15 Gm Gel..Gram.) 15 gm PO Q15M PRN; Protocol PRN Reason: per Hypoglycemia Standing Ord. Hydrochlorothiazide (Hydrochlorothiazide 50 Mg Tablet) 50 mg PO DAILY [facility]; Protocol Last Admin: 08/28/24 07:30 Dose: 50 mg Documented By: JOSE LUIS Hydromorphone HCl (Hydromorphone Hcl 0.5 Mg/0.5 Ml Syringe) 0.5 mg IVPUSH Q4H PRN; Protocol PRN Reason: Pain, Severe (Pain Scale 7-10) Last Admin: 08/27/24 20:25 Dose: 0.5 mg Documented By: MARILUZ Lactated Ringer's (Lr) 1,000 mls @ 100 mls/hr IVCONT .Q10H [facility] Last Admin: 08/28/24 02:20 Dose: 100 mls/hr Documented By: MARILUZ Insulin Human Lispro (Insulin Lispro 100 Unit/Ml 3 Ml Vial) 0 unit SUBCUT QIDACHS [facility]; Protocol Last Admin: 08/28/24 07:22 Dose: Not Given Documented By: JOSE LUIS Non-Admin Reason: No Insulin Coverage Isosorbide Mononitrate (Isosorbide Mononitrate 30 Mg Tab.Er.24h) 30 mg PO DAILY [facility]; Protocol Last Admin: 08/28/24 07:30 Dose: 30 mg Documented By: JOSE LUIS Lisinopril (Lisinopril 40 Mg Tablet) 40 mg PO DAILY [facility]; Protocol Last Admin: 08/28/24 07:30 Dose: 40 mg Documented By: JOSE LUIS Loratadine (Loratadine 10 Mg Tablet) 10 mg PO DAILY [facility] Last Admin: 08/28/24 07:30 Dose: 10 mg Documented By: JOSE LUIS Magnesium Hydroxide (Milk Of Magnesia 30 Ml Oral.Susp) 30 ml PO DAILY PRN PRN Reason: Constipation Melatonin (Melatonin 3 Mg Tablet) 6 mg PO BEDTIME PRN PRN Reason: Insomnia Mirtazapine (Mirtazapine 15 Mg Tablet) 45 mg PO BEDTIME [facility] Last Admin: 08/27/24 20:24 Dose: 45 mg Documented By: MARILUZ Nifedipine (Nifedipine Er 90 Mg Tab.Er.24) 90 mg PO BEDTIME [facility]; Protocol Last Admin: 08/27/24 20:24 Dose: 90 mg Documented By: MARILUZ Omeprazole (Omeprazole 40 Mg Capsule.) 40 mg PO BIDWM@0800,1700 [facility] Last Admin: 08/28/24 07:33 Dose: 40 mg Documented By: JOSE LUIS Ondansetron HCl (Ondansetron Hcl 4 Mg/2 Ml Vial) 4 mg IVPUSH Q8H PRN PRN Reason: Nausea and Vomiting Last Admin: 08/27/24 20:24 Dose: 4 mg Documented By: MARILUZ Oxycodone HCl (Oxycodone Hcl Immed Release 5 Mg Tablet) 5 mg PO Q6H PRN PRN Reason: Pain, Moderate(Pain Scale 4-6) Last Admin: 08/27/24 09:45 Dose: 5 mg Documented By: JONATHON Sodium Chloride (0.9 % Sodium Chloride Flush 3 Ml Syringe) 3 ml IVFLUSH QSHIFT [facility] Last Admin: 08/28/24 07:31 Dose: Not Given Documented By: JOSE LUIS Non-Admin Reason: IV Running Labs 08/27/24 08:18 08/27/24 00:20 Labs: Laboratory Results - last 24 hr 08/27/24 08/27/24 08/27/24 07:52 08:18 09:15 MCV 87.6 MCH 29.0 MCHC 33.1 RDW 13.6 Plt Count 315 MPV 9.3 L Absolute Nucleated RBC 0.000 Nucleated RBC % (auto) 0.0 PT 11.1 INR 1.0 APTT 33.4 POC Glucose 179 H 118 H 08/27/24 08/27/24 08/27/24 13:41 17:19 21:05 MCV MCH MCHC RDW Plt Count MPV Absolute Nucleated RBC Nucleated RBC % (auto) PT INR APTT POC Glucose 160 H 129 H 204 H Procedures Date of Service Date of Service: 08/28/24 Progress Note: A&P Assessment and plan (1) Splenic infarct: Status: Acute Plan 63-year-old female patient with complaints of abdominal pain found to have a splenic infarct. This morning she is relatively asymptomatic with minimal tenderness to palpation. No surgical intervention anticipated. Patient's diet can be advanced from my standpoint. Time Spent With Patient Time: Total time managing care of this patient today ____ minutes. Quality Stroke Does the patient have a stroke diagnosis?: No VTE Prior VTE?: No VTE Risk Level:: Medical - moderate - high VTE Device Contraindication: Treatment Not Indicated VTE Drug Contraindication: N/A - Med Ordered
[2024-08-28 07:46] LABS: Glucose, Whole Blood 122 mg/dL (60-115)
[2024-08-28] MEDS: Aspirin Enteric Coated 81 MG TABLET.DR PO (07:48)
[2024-08-28] MEDS: Fluticasone Propionate 100 MCG BLST.W.DEV 1 PUFF INHALE (08:24)
[2024-08-28 08:25] VITALS: PULSE 65; RESP 18; O2SAT 95
[2024-08-28 08:59] LABS: Hematocrit 29.4 % (37.0-47.0); Hemoglobin 9.9 g/dl (12.0-16.0); Mean Corpuscular HGB Conc 33.7 g/dl (31.0-35.0); Mean Corpuscular Hemoglobin 29.5 pg (27.0-33.0); Mean Corpuscular Volume 87.5 fL (80.0-98.0); NRBC Abs Auto 0.000 X10*3/uL (0.0-0.012); NRBC Pct Auto 0.0 /100WBC (0.0-0.2); Platelet Count 263 X10*3/uL (160-400); Red Blood Count 3.36 X10*6/uL (4.20-5.50); White Blood Count 6.7 X10*3/uL (4.8-10.8)
[2024-08-28 09:10] LABS: INTERNATIONAL NORM RATIO 1.0 (0.9-1.1); Prothrombin Time 12.0 SEC (10.9-12.4)
[2024-08-28 09:11] LABS: Anion Gap 8 (12-20); Blood Urea Nitrogen 12 mg/dL (9-16); Calcium 8.1 mg/dL (8.4-10.2); Carbon Dioxide 29 mmol/L (22-29); Chloride 108 mmol/L (96-108); Creatinine Clr Calc Pharmacy 56.4; Estimated Glomerular Filt Rate > 60; Potassium 4.0 mmol/L (3.3-5.1); Sodium 141 mmol/L (135-145)
[2024-08-28 11:28] LABS: Glucose, Whole Blood 154 mg/dL (60-115)
--- NOTE | 2024-08-28 12:04 | PM.DS ---
DS: Providers Provider Date of Service: 08/28/24 Date of admission: 08/27/24 06:45 Date of discharge: 08/28/24 Primary care physician: Unknown Physician Consults: 08/27/24 15:19 Consult to General Surgery Routine Consulting Provider: [facility] [place], [place] General Surgeons Reason for consultation: splenic infarct, pain 08/28/24 07:35 Consult to Hematology / Oncology Routine Consulting Provider: [facility] [place] [place] Oncology/Hematology Reason for consultation: splenic infarction DS: Diagnosis Discharge Diagnosis (1) Splenic infarct: Status: Acute DS: Summary Hospital Course Hospital Course: History and physical as per admitting provider. Patient is a 63-year-old Niuean-speaking female with a past medical history significant for CAD, PAD, type 2 diabetes on insulin, and hypertension, presented to the ED due to epigastric pain radiating to the back rating her pain an 8/10 on admission. She denies any trauma or recent infection. She had some nausea and vomiting about 3 times yesterday due to her pain but denies any hematemesis and reports her nausea has improved and she has not had any further vomiting. She also reports suprapubic discomfort and dysuria. She denies any chest pain, shortness of breath, headache, URI symptoms, or gross hematuria. She is a poor historian. 63-year-old woman treated for abdominal pain secondary to splenic infarct. CTA of the abdomen pelvis with thrombosis of the small splenic artery branch. Patient treated with therapeutic Lovenox, IV fluids, pain management. Seen evaluated by General surgery with no recommendations for treatment. Echocardiogram without thrombus. Also seen and evaluated by Oncology with recommendation to send home with Eliquis. Start Eliquis 10 mg twice daily for 7 days then 5 mg twice daily Chronic normocytic anemia. Stable H&H UTI. Treated with ceftriaxone, we will complete therapy with Ceftin Diabetes mellitus type 2. Continue home medications Peripheral arterial disease/coronary artery disease. Continue aspirin, Plavix Hypertension. Continue home medications Time Attestation Discharge Coordination Time (in mins): 42 Quality: Safe Use of Opioids Does Pt have an Active Cancer Diagnosis on the Problem List?: No Quality: Stroke Does the patient have a stroke diagnosis?: No Physical Exam Vital Signs: Vital Signs: Last Vital Signs Temp 97.1 F 08/28/24 07:13 Pulse 65 08/28/24 08:25 Resp 18 08/28/24 08:25 BP 189/86 H 08/28/24 03:50 Pulse Ox 95 08/28/24 07:13 O2 Del Method Room Air 08/28/24 07:13 BMI result Body Mass Index 28.0 Appearing in no acute distress head is normocephalic atraumatic eyes pupils are PERRLA sclera is anicteric mouth throat mucous membranes are intact and moist neck is supple no lymphadenopathy, no JVD noted lung sounds are clear to auscultation heart regular rate rhythm, clear S1, S2 positive bowel sounds, abdomen is soft, nontender neuro patient is alert x3, no focal deficits DS: Data Data Completed and Pending Completed studies during hospitalization [Text1]: Procedures Extirpation of Matter from Left Femoral Artery, Open Approach (05/09/20) Extirpation of Matter from Left Popliteal Artery, Open Approach (05/09/20) Extirpation of Matter from Right Common Carotid Artery, Open Approach (11/28/22) Fluoroscopy of Aorta and Bilateral Lower Extremity Arteries (05/09/20) Insertion of Infusion Device into Superior Vena Cava, Percutaneous Approach (05/09/20) Supplement Left Femoral Artery with Synthetic Substitute, Open Approach (05/09/20) Supplement Left Popliteal Artery with Synthetic Substitute, Open Approach (05/09/20) Supplement Right Common Carotid Artery with Synthetic Substitute, Open Approach (11/28/22) Transfusion of Nonautologous Red Blood Cells into Peripheral Vein, Percutaneous Approach (05/09/20) Labs on day of discharge: Laboratory Results - last 24 hr 08/27/24 08/27/24 08/27/24 13:41 17:19 21:05 WBC RBC Hgb Hct MCV MCH MCHC RDW Plt Count MPV Absolute Nucleated RBC Nucleated RBC % (auto) PT INR Sodium Potassium Chloride Carbon Dioxide Anion Gap BUN Creatinine Estim Creat Clear Calc Estimated GFR POC Glucose 160 H 129 H 204 H Random Glucose Calcium 08/28/24 08/28/24 08/28/24 07:19 08:45 11:21 WBC 6.7 RBC 3.36 L Hgb 9.9 L Hct 29.4 L MCV 87.5 MCH 29.5 MCHC 33.7 RDW 13.7 Plt Count 263 MPV 9.0 L Absolute Nucleated RBC 0.000 Nucleated RBC % (auto) 0.0 PT 12.0 INR 1.0 Sodium 141 Potassium 4.0 Chloride 108 Carbon Dioxide 29 Anion Gap 8 L BUN 12 Creatinine 0.87 Estim Creat Clear Calc 56.4 Estimated GFR > 60 POC Glucose 122 H 154 H Random Glucose 143 H Calcium 8.1 L Discharge Plan Discharge Anticipated Discharge Date/Time: 08/28/24 11:33 Patient Disposition: Home, Self-Care Discharge Diagnosis: Splenic infarct UTI Discharge Medications: New cefuroxime axetil 500 mg tablet 500 mg PO Q12H Qty: 8 0RF Eliquis 5 mg tablet 5 mg PO BID Qty: 74 0RF Rx Instructions: Take 10 mg twice daily for 7 days then 5 mg twice daily Continued pioglitazone 15 mg tablet 15 mg PO DAILY 30 Days Qty: 30 11RF benzonatate 200 mg capsule 200 mg PO TID PRN (Reason: cough) Qty: 20 0RF clopidogrel 75 mg tablet 75 mg PO DAILY acetaminophen 650 mg tablet extended release 650 mg PO Q8H omeprazole 20 mg capsule,delayed release(DR/EC) 40 mg PO BIDWM@0800,1700 albuterol sulfate [Ventolin HFA] 90 mcg/actuation HFA aerosol inhaler 2 puff INHALATION Q6H PRN (Reason: Shortness Of Breath Or Wheezing) lisinopril 40 mg tablet 40 mg PO DAILY fluticasone propionate 50 mcg/actuation spray,suspension 2 spray intranasal DAILY loratadine 10 mg tablet 10 mg PO DAILY nicotine (polacrilex) 2 mg lozenge 2 mg PO Q1-2H PRN (Reason: Nicotine Cravings) Asmanex HFA 100 mcg/actuation HFA aerosol inhaler 2 puff INHALATION BID Ozempic 0.25 mg or 0.5 mg (2 mg/3 mL) pen injector 0.5 mg subcut FR isosorbide mononitrate 30 mg tablet extended release 24 hr 30 mg PO DAILY boobgwehw-BVB-DT-acetaminophen 6.31-81-02-500 mg/15 mL Liquid 30 ml PO Q4H PRN (Reason: Cough) Rx Instructions: DNExceed 4 doses/24h ferrous sulfate 325 mg (65 mg iron) tablet 325 mg PO BID PRN (Reason: Iron Levels) Rx Instructions: Pt takes as needed due to this med making the pt constipated. multivitamin Tablet 1 tab PO DAILY aspirin [Adult Low Dose Aspirin] 81 mg tablet,delayed release (DR/EC) 81 mg PO DAILY escitalopram oxalate [Lexapro] 20 mg tablet 20 mg PO DAILY@1800 mirtazapine 45 mg tablet 45 mg PO BEDTIME atorvastatin [Lipitor] 80 mg tablet 80 mg PO BEDTIME Tresiba FlexTouch U-100 100 unit/mL (3 mL) insulin pen 14 unit subcut DAILY (DME) FreeStyle Lite Strips Strip See Rx Instructions Not Applicable QID Qty: 10 Rx Instructions: As directed ezetimibe 10 mg tablet 10 mg PO DAILY gabapentin 600 mg tablet 600 mg PO BID amitriptyline 50 mg tablet 50 mg PO BEDTIME Synjardy 12.5-1,000 mg tablet 1 tab PO BID hydrochlorothiazide 50 mg tablet 50 mg PO DAILY carvedilol [Coreg] 25 mg tablet 25 mg PO BID Qty: 120 4RF Rx Instructions: must administer with a meal/food nifedipine 90 mg tablet extended release 24hr 90 mg PO BEDTIME Qty: 90 4RF docusate sodium 100 mg capsule 100 mg PO BID Discharge Orders: Discharge Order (Routine); Ordered 08/28/24 Ordered By: Sri Reynolds Diet: Advance to usual diet Activity on Discharge: As tolerated Stand Alone Forms: Patient Portal Discharge page Print Language: Niuean Care Plan Goals: He has been started on Eliquis blood thinner. Take 10 mg twice daily for 7 days and 5 mg twice daily. Follow up with the primary care provider for management of this medication Complete antibiotic course Health Concerns: Splenic infarct UTI Plan of Treatment: Follow up with primary care provider as needed Take all medications as prescribed Assessment: See discharge summary
--- NOTE | 2024-08-28 13:17 | MHC.CM.PN ---
Patient dc'd home self care via private transport prior to CM assessment.
--- NOTE | 2024-08-28 14:38 | PM.HEMONCCN ---
Subjective - Subjective Chief complaint: Abdominal pain Patient: new to practice Consult date: 08/28/24 Primary Care Provider: Unknown Physician Buttoner Utilized?: Yes - [employer] HPI - Consult Narrative Reason for consult: Splenic infarction Narrative: Rocío Schmid is a 63 year old female with past medical history significant for CAD, PAD, type 2 diabetes on insulin, and hypertension, presented to the ED due to epigastric pain radiating to the back rating her pain an 8/10 on admission. She denies any trauma or recent infection. She had some nausea and vomiting about 3 times yesterday due to her pain but denies any hematemesis and reports her nausea has improved and she has not had any further vomiting. She also reports suprapubic discomfort and dysuria. She denies any chest pain, shortness of breath, headache, URI symptoms, or gross hematuria. CTA abd/pelvis with thrombosis of the small splenic artery branch extending to the infarct. She was started on therapeutic Lovenox 1 milligram/kilos b.i.d.. She is doing well now and reports resolution of pain. She denies any prior history of thromboembolism. She is a chronic smoker. She does not recall any family history of thromboembolism. Review of Systems - Constitutional Reports as per HPI, Denies fatigue, Denies lack of energy, Denies malaise, Denies weakness - Cardiovascular Reports no additional cardiovascular complaints - Respiratory Reports no additional respiratory complaints - Gastrointestinal Reports no additional gastrointestinal complaints - Neurologic Denies confusion, Denies headache(s) [facility] Medical History: Medical History (Last Reviewed 08/27/24 @ 09:56 by Luann Paulson RN) Arthritis Asthma CAD (coronary artery disease) Chronic low back pain Cyst (solitary) of breast Diabetes H. pylori infection HLD (hyperlipidemia) HTN (hypertension) HTN (hypertension) Kidney calculi Lumbar spinal stenosis Mild aortic valve stenosis NSTEMI (non-ST elevated myocardial infarction) LORE (obstructive sleep apnea) T2DM (type 2 diabetes mellitus) Vitamin D deficiency Functional capacity: independent ambulation Family History: Family History (Last Reviewed 08/08/24 @ 14:06 by STEPHEN Valderrama) Mother Diabetes Liver cancer Surgical History: Surgical History (Last Reviewed 08/27/24 @ 09:56 by Luann Paulson RN) History of breast surgery History of cardiac cath History of esophagogastroduodenoscopy (EGD) History of right-sided carotid endarterectomy Onset Date: ~11/2022 Hx of colonoscopy S/P aortogram Social History: Social History (Last Reviewed 08/08/24 @ 14:06 by STEPHEN Valderrama) Living Situation History: Household Members: Family Household Members: Children Household Members Other:: friend and adult son Housing: House Are you a primary youth care professional to a significant other at home: No Do you presently have visiting nurse or other home services: Yes Do you presently have visiting nurse or other home services comment: RN 2x/week Tobacco History: Patient Tobacco Use Status: Current everyday Tobacco Tobacco use type: Cigarette Cigarette Packs Per Day: 1 Cigarettes Per Day: 4 Years Smoked: 30 e-Cigarette/Vaping Use: Currently Using Second Hand Smoke Exposure: Yes Advance Directives: Advance Directives Date on File: 09/26/23 Occupation Assessmet: service: No Current occupational status: unemployed Current occupational status: disabled Home Medications and Allergies Home Medications ?Medication ?Instructions ?Recorded ?Confirmed ?Type aspirin 81 mg tablet,delayed 81 mg PO DAILY 01/02/20 08/27/24 History release (Adult Low Dose Aspirin) atorvastatin 80 mg tablet (Lipitor) 80 mg PO BEDTIME 01/02/20 08/27/24 History escitalopram oxalate 20 mg tablet 20 mg PO DAILY@1800 01/02/20 08/27/24 History (Lexapro) mirtazapine 45 mg tablet 45 mg PO BEDTIME 01/02/20 08/27/24 History multivitamin 1 tab PO DAILY 01/02/20 08/27/24 History blood sugar diagnostic (FreeStyle #10 ea 03/30/21 08/08/24 History Lite Strips) insulin degludec 100 unit/mL (3 14 unit subcut DAILY 10/03/22 08/27/24 History mL) subcutaneous pen (Tresiba FlexTouch U-100 insulin) docusate sodium 100 mg capsule 100 mg PO BID 01/30/24 08/27/24 History ezetimibe 10 mg tablet 10 mg PO DAILY 04/11/24 08/27/24 History amitriptyline 50 mg tablet 50 mg PO BEDTIME 08/08/24 08/27/24 History empagliflozin 12.5 mg-metformin 1 tab PO BID 08/08/24 08/27/24 History 1,000 mg tablet (Synjardy) gabapentin 600 mg tablet 600 mg PO BID 08/08/24 08/27/24 History hydrochlorothiazide 50 mg tablet 50 mg PO DAILY 08/08/24 08/27/24 History acetaminophen 650 mg 650 mg PO Q8H 08/27/24 08/27/24 History tablet,extended release albuterol sulfate 90 mcg/actuation 2 puff inhalation Q6H PRN 08/27/24 08/27/24 History aerosol inhaler (Ventolin HFA) Shortness Of Breath Or Wheezing clopidogrel 75 mg tablet 75 mg PO DAILY 08/27/24 08/27/24 History roijpvjyf-JHD-PH-acetaminophen 30 ml PO Q4H PRN Cough 08/27/24 08/27/24 History 6.25 mg-30 [id number]/15mL oral liqd ferrous sulfate 325 mg (65 mg 325 mg PO BID PRN Iron Levels 08/27/24 08/27/24 History iron) tablet fluticasone propionate 50 2 spray intranasal DAILY 08/27/24 08/27/24 History mcg/actuation nasal spray,suspension isosorbide mononitrate 30 mg 30 mg PO DAILY 08/27/24 08/27/24 History tablet,extended release 24 hr lisinopril 40 mg tablet 40 mg PO DAILY 08/27/24 08/27/24 History loratadine 10 mg tablet 10 mg PO DAILY 08/27/24 08/27/24 History mometasone 100 mcg/actuation HFA 2 puff inhalation BID 08/27/24 08/27/24 History aerosol inhaler (Asmanex HFA) nicotine (polacrilex) 2 mg buccal 2 mg PO Q1-2H PRN Nicotine Cravings 08/27/24 08/27/24 History lozenge omeprazole 20 mg capsule,delayed 40 mg PO BIDWM@0800,1700 08/27/24 08/27/24 History release semaglutide 0.25 mg or 0.5 mg (2 0.5 mg subcut FR 08/27/24 08/27/24 History mg/3 mL) subcutaneous pen injector (Ozempic) Allergies Allergy/AdvReac Type Severity Reaction Status Date / Time latex (LATEX) Allergy Severe RASH Verified 08/26/24 23:35 naproxen (From NAPROSYN) AdvReac Intermediate TACHYCARDIA Verified 08/26/24 23:35 Physical Exam Vital signs: Vital Signs Temp 97.1 F 08/28/24 07:13 Pulse 65 08/28/24 08:25 Resp 18 08/28/24 08:25 BP 189/86 H 08/28/24 03:50 Pulse Ox 95 08/28/24 07:13 O2 Del Method Room Air 08/28/24 07:13 Intake & Output 08/27/24 08/28/24 08/28/24 18:59 06:59 18:59 Intake Total 910 / 2463.333 1553.333 / 2463.333 1000 / 1000 Balance 910 / 2463.333 1553.333 / 2463.333 1000 / 1000 Intake: Intake, Oral Amount 640 / 640 Intake, IV Amount 910 / 1823.333 913.333 / 0775.261 2708 / 1000 Lactated Ringers 1,000 ml @ 100 910 / 1823.333 913.333 / 0666.631 4001 / 1000 mls/hr IVCONT .Q10H JORY Rx#: [id number] Other: NPO Yes Number of Unmeasured Voids 3 Last Bowel Movement 08/27/24 Weight 65 kg Weight 65 kg - Constitutional Present: no acute distress, average body habitus - Routine HEENT Exam Head: Present: normal inspection Eye: Present: EOMI, PERRL - Routine Neck Exam Present: supple. Absent: lymphadenopathy - Routine Respiratory Exam Absent: accessory muscle use - Routine Cardiovascular Exam Cardiovascular: Present: S1, S2 - Routine Abdominal Exam Present: soft - Routine Extremities Exam Present: pulses intact Hem/Onc Consult Result - Labs CBC & Chem 7: 08/28/24 08:45 08/28/24 08:45 Labs: Short CBC 08/28/24 Range/Units 08:45 WBC 6.7 (4.8-10.8) X10*3/uL Hgb 9.9 L (12.0-16.0) g/dl Hct 29.4 L (37.0-47.0) % Plt Count 263 (160-400) X10*3/uL BMP 08/28/24 08:45 Sodium 141 Potassium 4.0 Chloride 108 Carbon Dioxide 29 BUN 12 Creatinine 0.87 Calcium 8.1 L Assessment and Plan Patient Active problem list reviewed?: Yes (1) Splenic infarct Status: Acute Assessment and plan: 1. This is a 63-year-old Moroccan-speaking woman with past medical history significant for coronary artery disease, peripheral artery disease, type 2 diabetes mellitus who presented with abdominal pain and found to have acute splenic infarction. CT angiography of abdomen/pelvis showed splenic infarction involving 25% of splenic parenchyma. Main splenic arteries atherosclerotic but patent. Thrombosis of small splenic artery branch extending to the infarct. Transthoracic echocardiogram did not show any valvular abnormalities or inter-atrial shunt. EKG shows normal sinus rhythm. She is a smoker and has extensive atherosclerotic disease which could be contributing to splenic infarction. Her blood counts are normal, she does not have any evidence of myeloproliferative disorder. She has had a spontaneous splenic infarction, she has been recommended anticoagulation with Eliquis for at least 6 months. She was advised to stop smoking. Thank you for the consultation. - Time Spent With Patient Time Spent with Patient (in minutes): 20
--- OUTSIDE RECORDS SUMMARY | 2024-09-18 20:00 | XMS_ITS | Clinical Summary ---
Author Organization Unknown Care Team Providers Care Environmental Intern Name Role Phone ADILIA FELIPE, VIOLETA Unavailable Unavailable SURJIT DAVID, ERIC Unavailable Unavailable Payers Payer Name Policy Type Policy Number Effective Date Expira tion Date MEDICAID [facility] [id number] Problems Condition Name Condition Details Condition Category Status Onset Date Resolution Date Last Treatment Date Treating Clinician Comments ESSENTIAL (PRIMARY) HYPERTENSION Active 09-21 00:00: 00 ATHSCL HEART DISEASE OF [place] CORONARY ARTERY W/O ANG PCTRS Active 09-21 [...] CIGARETTES, UNCOMPLICATE D Active 09-21 00:00: 00 ACID MAKER (CURRENT) USE OF INSULIN Active 09-21 00:00: 00 ACID MAKER (CURRENT) USE OF ANTITHROMBOT ICS/ANTIPLAT ELETS Active [...] release 24 hr 09-17 00:00: 00 Yes [id number] 60 mg AT BEDTIME 60 mg AT BEDTIME (route: oral) Med Classific ation: Cardiovas cular Therapy Agents oxycodone 5 mg tablet 09-04 00:00: 00 11-19 23:59 :00 No [id number] Unavailable 5 mg FIVE TIMES DAILY NEEDED 5 mg FIVE TIMES DAILY NEEDED (route: oral) Med Classific ation: Analgesic , Anti-infl ammatory or Antipyret ic gabapentin 600 mg tablet 09-03 00:00: 00 09-25 23:59 :00 No [id number] 600 mg 2 TIMES DAILY 600 mg 2 TIMES DAILY (route: oral) Med Classific ation: Central Nervous System Agents nicotine 21 mg/24 hr daily transdermal patch 08-30 00:00: 00 Yes [id number] Unavailable 21 mg DAILY 21 mg DAILY (route: transderma l) Med Classific ation: Chemical Dependenc y, Agents to Treat Alcohol Prep Pads 08-29 00:00: 00 05-18 23:59 :00 No [id number] 1 pads, medicat ed DIRECTED THREE TIMES DAILY AND NEEDED 1 pads, medicated DIRECTED THREE TIMES DAILY AND NEEDED (route: topical) Med Classific ation: Antisepti cs and Disinfect ants amitriptyli ne 50 mg tablet 08-29 00:00: 00 Yes [id number] Unavailable 50 mg AT BEDTIME 50 mg AT BEDTIME (route: oral) Med Classific ation: Central Nervous System Agents Asmanex HFA 100 mcg/actuati on aerosol inhaler 08-29 00:00: 00 Yes [id number] 2 puff TWICE DAILY 2 puff TWICE DAILY (route: inhalation ) Med Classific ation: Respirato ry Therapy Agents atorvastati n 80 mg tablet 08-29 00:00: 00 Yes [id number] Unavailable 80 mg BEDTIME 80 mg BEDTIME (route: oral) Med Classific ation: Cardiovas cular Therapy Agents carvedilol 25 mg tablet 08-29 00:00: 00 Yes [id number] Unavailable 25 mg TWICE DAILY 25 mg TWICE DAILY (route: oral) Med Classific ation: Cardiovas cular Therapy Agents clopidogrel 75 mg tablet 08-29 00:00: 00 Yes [id number] 75 mg EVERY AM 75 mg EVERY AM (route: oral) Med Classific ation: Hematolog ical Agents docusate sodium 100 mg capsule 08-29 00:00: 00 09-25 23:59 :00 No [id number] Unavailable 100 mg TWICE DAILY 100 mg TWICE DAILY (route: oral) Med Classific ation: Gastroint estinal Therapy Agents escitalopra m 20 mg tablet 08-29 00:00: 00 Yes [id number] Unavailable 20 mg EVERY PM 20 mg EVERY PM (route: oral) Med Classific ation: Central Nervous System Agents FeroSul 325 mg (65 mg iron) tablet 08-29 00:00: 00 09-25 23:59 :00 No [id number] Unavailable 325 mg TWICE DAILY IN THE MORNING AND AT BEDTIME 325 mg TWICE DAILY IN THE MORNING AND AT BEDTIME (route: oral) Med Classific ation: Electroly te Balance-N utritiona l Products gabapentin 800 mg tablet 08-29 00:00: 00 Yes [id number] 800 mg 2 TIMES DAILY 800 mg 2 TIMES DAILY (route: oral) Med Classific ation: Central Nervous System Agents hydralazine 25 mg tablet 08-29 00:00: 00 Yes [id number] Unavailable 25 mg 3 TIMES DAILY 25 mg 3 TIMES DAILY (route: oral) Med Classific ation: Cardiovas cular Therapy Agents hydralazine 50 mg tablet 08-29 00:00: 00 09-25 23:59 :00 No [id number] Unavailable 50 mg THREE TIMES DAILY IN THE MORNING AT 50 mg THREE TIMES DAILY IN THE MORNING AT (route: oral) Med Classific ation: Cardiovas cular Therapy Agents mirtazapine 45 mg tablet 08-29 00:00: 00 Yes [id number] Unavailable 45 mg AT BEDTIME 45 mg AT BEDTIME (route: oral) Med Classific ation: Central Nervous System Agents omeprazole 20 mg capsule,del ayed release 08-29 00:00: 00 Yes [id number] 20 mg TWICE DAILY 20 mg TWICE DAILY (route: oral) Med Classific ation: Gastroint estinal Therapy Agents lisinopril 40 mg tablet 09-25 00:00: 00 Yes [id number] 40 mg DAILY 40 mg DAILY (route: oral) Med Classific ation: Cardiovas cular Therapy Agents metformin 1,000 mg tablet 09-25 00:00: 00 Yes [id number] 1000 mg 2 TIMES DAILY 1000 mg 2 TIMES DAILY (route: oral) Med Classific ation: Endocrine multivitami n tablet 09-25 00:00: 00 Yes [id number] 1 tablet DAILY 1 tablet DAILY (route: oral) Med Classific ation: Electroly te Balance-N utritiona l Products nifedipine ER 60 mg tablet,exte nded release 09-25 00:00: 00 Yes [id number] 60 mg EVERY PM 60 mg EVERY PM (route: oral) Med Classific ation: Cardiovas cular Therapy Agents pioglitazon e 15 mg tablet 09-25 00:00: 00 Yes [id number] 15 mg DAILY 15 mg DAILY (route: oral) Med Classific ation: Endocrine Tresiba FlexTouch U-100 insulin 100 unit/mL (3 mL) subcutane s pen 09-25 00:00: 00 Yes [id number] 10 In unit DAILY 10 In unit DAILY (route: subcutaneo ) Med Classific ation: Endocrine Vital Signs Vital Name Observation Time Observation Value Commen ts Temperature 2024-08-25 11:05:00.000 97.9 [degF] Temperature 2024-08-24 12:00:00.000 97.6 [degF] Temperature 2024-08-23 12:28:00.000 97.5 [degF] Temperature 2024-08-22 11:50:00.000 97.5 [degF] Temperature 2024-08-21 12:07:00.000 97.5 [degF] Temperature 2024-08-20 11:55:00.000 97.5 [degF] Temperature 2024-08-19 12:05:00.000 97.5 [degF] Temperature 2024-08-18 12:11:00.000 97.5 [degF] Temperature 2024-08-17 11:35:00.000 97.6 [degF] Temperature 2024-08-16 11:12:00.000 97.5 [degF] Temperature 2024-08-15 11:48:00.000 97.5 [degF] Temperature 2024-08-14 12:00:00.000 97.5 [degF] Temperature 2024-08-13 12:06:00.000 97.8 [degF] Temperature 2024-08-12 11:39:00.000 97.5 [degF] Temperature 2024-08-11 11:04:00.000 97.5 [degF] Temperature 2024-08-10 11:01:00.000 97.5 [degF] Temperature 2024-08-09 11:53:00.000 97.4 [degF] Temperature 2024-08-08 11:56:00.000 97.7 [degF] Temperature 2024-08-07 12:10:00.000 98.2 [degF] Temperature 2024-08-06 12:23:00.000 97.5 [degF] Temperature 2024-08-05 11:58:00.000 97.5 [degF] Temperature 2024-08-04 21:36:00.000 97.5 [degF] Temperature 2024-08-03 11:39:00.000 97.5 [degF] Temperature 2024-08-02 12:03:00.000 97.6 [degF] Temperature 2024-08-01 11:43:00.000 97.5 [degF] Temperature 2024-07-31 12:34:00.000 97.4 [degF] Temperature 2024-07-30 12:18:00.000 97.7 [degF] Temperature 2024-07-29 11:46:00.000 97.5 [degF] Temperature 2024-07-28 10:42:00.000 97.5 [degF] Temperature 2024-07-27 11:07:00.000 97.5 [degF] Temperature 2024-07-26 11:52:00.000 98 [degF] Temperature 2024-07-25 11:29:00.000 97.5 [degF] Temperature 2024-07-24 13:58:00.000 97.8 [degF] Temperature 2024-07-23 12:17:00.000 97.5 [degF] Temperature 2024-07-22 11:58:00.000 97.5 [degF] Plan of Treatment Planned Activity [...] AWARENESS FOR SAFETY AND WILL NOTIFY CLINICAL DUST COLLECTOR OPERATOR AND PHYSICIAN/PROVIDER WITH ANY CHANGE IN CONDITION. [code = SKILLED NURSE WILL MAINTAIN SITUATIONAL AWARENESS FOR SAFETY AND WILL NOTIFY CLINICAL DUST COLLECTOR OPERATOR AND PHYSICIAN/PROVIDER WITH ANY CHANGE IN CONDITION.] [...] - LOWERING MY B LOOD PRESSURE Goal 2024-07-17 Patient Goal - LOWERING MY B LOOD [...] BY THE END OF THE CERTIFICATION PERIOD. Progress Notes Progress Notes <paragraph>[Visit Date: 2024 by ERIC EDDY RN]:</paragraph><paragraph>PATIENT EDUCATED ABOUT NO CONCENTRATED SWEETS DIET, AVOID SODA/JUICE AND DESSERTS LIKE ICE CREAM/CAKE DUE TO THEIR HIGH SUGAR CONTENT, PATIENT VERBALIZED UNDERSTANDING.</paragraph> Encounters Start Date/Time End Date/Time Encounter Type Admission Type Attending [facility] Care Department Encounter ID Discharge Date Discharge Status Discharge Condition Discharge Reason Percent Goals Met 2024-07-22 00:00:00 2024-09-19 00:00:00 Outpatient RECERTIFIC ATION ERIC EDDY [facility] [id number] 45.83
== END 2024-08-28 13:06 | disposition home or self-care (01) | DRG 663 ==
LOC: HO.ED 08-27 06:46 → HO.EDOVER 08-27 07:11 → HO.S3 08-27 07:38
PROVIDERS: Emergency Medicine; Physician Assistant; Admitting Provider Student in an Organized Health Care Education/Training Program; Emergency Provider Emergency Medicine; Visit Provider Nurse Practitioner Acute Care
DX: D73.5 Infarction of spleen (principal); E11.51 Type 2 diabetes mellitus with diabetic peripheral angiopathy without gangrene; D64.9 Anemia, unspecified; F17.210 Nicotine dependence, cigarettes, uncomplicated; I10 Essential (primary) hypertension; I25.10 Atherosclerotic heart disease of native coronary artery without angina pectoris; N39.0 Urinary tract infection, site not specified; R31.29 Other microscopic hematuria; Z95.5 Presence of coronary angioplasty implant and graft; Z71.6 Tobacco abuse counseling; Z79.82 Long term (current) use of aspirin; Z79.4 Long term (current) use of insulin; Z79.899 Other long term (current) drug therapy
CPT/HCPCS: 36415; 71045; 74174; 80048; 80053; 81001; 82947; 83605; 83690; 84484; 85025; 85027; 85610; 85730; 87086; 87088; 87186; 93005; 93306; 94640; 99285; J0696; J1171; J1650; J2270; J2405; J7120; Q9957; Q9967

== ENCOUNTER → 2024-08-26 23:40 | Outpatient (BNV) | payer MEDICAID, SELFPAY | PROVIDERS: Admitting Provider Student in an Organized Health Care Education/Training Program; Emergency Provider Emergency Medicine; Visit Provider Internal Medicine | DX: I51.7 Cardiomegaly (principal) | CPT/HCPCS: 93010 ==

== ENCOUNTER → 2024-08-27 00:09 | Outpatient (BNV) | payer MEDICAID, SELFPAY | PROVIDERS: Emergency Provider Emergency Medicine; Visit Provider Radiology Diagnostic Radiology | DX: D73.5 Infarction of spleen (principal); R07.9 Chest pain, unspecified | CPT/HCPCS: 71045; 74174 ==

== ENCOUNTER 2024-08-27 06:45 | Outpatient (BNV) | payer MEDICAID, SELFPAY | END 2024-08-27 07:00 | PROVIDERS: Admitting Provider Student in an Organized Health Care Education/Training Program; Emergency Provider Emergency Medicine; Visit Provider Internal Medicine | DX: I35.0 Nonrheumatic aortic (valve) stenosis (principal); I34.81 Nonrheumatic mitral (valve) annulus calcification | CPT/HCPCS: 93306 ==

== ENCOUNTER → 2024-08-27 06:45 | Outpatient (BNV) | payer MEDICAID, SELFPAY | PROVIDERS: Admitting Provider Student in an Organized Health Care Education/Training Program; Emergency Provider Emergency Medicine; Visit Provider Internal Medicine | DX: D73.5 Infarction of spleen (principal) | CPT/HCPCS: 99222 ==

== ENCOUNTER → 2024-08-27 06:45 | Outpatient (BNV) | payer MEDICAID, SELFPAY | PROVIDERS: Admitting Provider Student in an Organized Health Care Education/Training Program; Emergency Provider Emergency Medicine; Visit Provider Surgery | DX: D73.5 Infarction of spleen (principal) | CPT/HCPCS: 99222; 99232 ==

== ENCOUNTER → 2024-08-27 06:45 | Outpatient (BNV) | payer MEDICAID, SELFPAY | PROVIDERS: Admitting Provider Student in an Organized Health Care Education/Training Program; Emergency Provider Emergency Medicine; Visit Provider Physician Assistant | DX: D73.5 Infarction of spleen (principal) | CPT/HCPCS: 99223; 99239; 99499 ==

== ENCOUNTER 2024-09-24 11:15 | Outpatient (REF) | payer MEDICAID, SELFPAY ==
--- OUTSIDE RECORDS SUMMARY | 2024-09-18 20:00 | XMS_ITS | Clinical Summary ---
Author Organization Unknown Care Team Providers Care Food Service Assistant Name Role Phone ADILIA FELIPE, VIOLETA Unavailable Unavailable SURJIT DAVID, ERIC Unavailable Unavailable Payers Payer Name Policy Type Policy Number Effective Date Expira tion Date MEDICAID [facility] [id number] Problems Condition Name Condition Details Condition Category Status Onset Date Resolution Date Last Treatment Date Treating Clinician Comments ESSENTIAL (PRIMARY) HYPERTENSION Active 09-21 00:00: 00 ATHSCL HEART DISEASE OF [place] CORONARY ARTERY W/O ANG PCTRS Active 09-21 00:00: 00 MAJOR DEPRESSIVE DISORDER, SINGLE EPISODE, MODERATE Active 08-31 00:00: 00 NONRHEUMATIC AORTIC (VALVE) STENOSIS Active [...] CIGARETTES, UNCOMPLICATE D Active 09-21 00:00: 00 GROUP HOME (CURRENT) USE OF INSULIN Active 09-21 00:00: 00 GROUP HOME (CURRENT) USE OF ANTITHROMBOT ICS/ANTIPLAT ELETS [...] 60 mg tablet,exte nded release 24 hr 805 00:00: 00 Yes [id number] 60 mg AT BEDTIME 60 mg AT BEDTIME (route: oral) Med Classific ation: Cardiovas cular Therapy Agents oxycodone 5 mg tablet 09-04 00:00: 00 11-19 23:59 :00 No [id number] Unavailable 5 mg FIVE TIMES DAILY NEEDED 5 mg FIVE TIMES DAILY NEEDED (route: oral) Med Classific ation: Analgesic , Anti-infl ammatory or Antipyret ic gabapentin 600 mg tablet 09-03 00:00: 00 09-25 23:59 :00 No [id number] 600 mg 2 TIMES DAILY 600 mg 2 TIMES DAILY (route: oral) Med Classific ation: Central Nervous System Agents nicotine 21 mg/24 hr daily transdermal patch 08-30 00:00: 00 Yes [id number] Unavailable 21 mg DAILY 21 mg DAILY (route: transderma l) Med Classific ation: Chemical Dependenc y, Agents to Treat Alcohol Prep Pads 08-29 00:00: 00 05-18 23:59 :00 No [id number] 1 pads, medicat ed DIRECTED THREE TIMES DAILY AND NEEDED 1 pads, medicated DIRECTED THREE TIMES DAILY AND NEEDED (route: topical) Med Classific ation: Antisepti cs and Disinfect ants amitriptyli ne 50 mg tablet 08-29 00:00: 00 09-22 23:59 :00 No [id number] Unavailable 50 mg AT BEDTIME 50 mg AT BEDTIME (route: oral) Med Classific ation: Central Nervous System Agents Asmanex HFA 100 mcg/actuati on aerosol inhaler 08-29 00:00: 00 Yes [id number] 2 puff TWICE DAILY 2 puff TWICE DAILY (route: inhalation ) Med Classific ation: Respirato ry Therapy Agents atorvastati n 80 mg tablet 08-29 00:00: 00 Yes [id number] Unavailable 80 mg BEDTIME 80 mg BEDTIME (route: oral) Med Classific ation: Cardiovas cular Therapy Agents carvedilol 25 mg tablet 08-29 00:00: 00 Yes [id number] Unavailable 25 mg TWICE DAILY 25 mg TWICE DAILY (route: oral) Med Classific ation: Cardiovas cular Therapy Agents clopidogrel 75 mg tablet 08-29 00:00: 00 Yes [id number] 75 mg EVERY AM 75 mg EVERY AM (route: oral) Med Classific ation: Hematolog ical Agents docusate sodium 100 mg capsule 08-29 00:00: 00 09-25 23:59 :00 No [id number] Unavailable 100 mg TWICE DAILY 100 mg TWICE DAILY (route: oral) Med Classific ation: Gastroint estinal Therapy Agents escitalopra m 20 mg tablet 08-29 00:00: 00 Yes [id number] Unavailable 20 mg EVERY PM 20 mg EVERY PM (route: oral) Med Classific ation: Central Nervous System Agents FeroSul 325 mg (65 mg iron) tablet 08-29 00:00: 00 09-25 23:59 :00 No [id number] Unavailable 325 mg TWICE DAILY IN THE MORNING AND AT BEDTIME 325 mg TWICE DAILY IN THE MORNING AND AT BEDTIME (route: oral) Med Classific ation: Electroly te Balance-N utritiona l Products gabapentin 800 mg tablet 08-29 00:00: 00 09-22 23:59 :00 No [id number] 800 mg 2 TIMES DAILY 800 mg 2 TIMES DAILY (route: oral) Med Classific ation: Central Nervous System Agents hydralazine 25 mg tablet 08-29 00:00: 00 09-22 23:59 :00 No [id number] Unavailable 25 mg 3 TIMES DAILY 25 mg 3 TIMES DAILY (route: oral) Med Classific ation: Cardiovas cular Therapy Agents hydralazine 50 mg tablet 08-29 00:00: 00 09-25 23:59 :00 No [id number] Unavailable 50 mg THREE TIMES DAILY IN THE MORNING AT 50 mg THREE TIMES DAILY IN THE MORNING AT (route: oral) Med Classific ation: Cardiovas cular Therapy Agents mirtazapine 45 mg tablet 08-29 00:00: 00 Yes [id number] Unavailable 45 mg AT BEDTIME 45 mg AT BEDTIME (route: oral) Med Classific ation: Central Nervous System Agents omeprazole 20 mg capsule,del ayed release 08-29 00:00: 00 Yes [id number] 20 mg TWICE DAILY 20 mg TWICE DAILY (route: oral) Med Classific ation: Gastroint estinal Therapy Agents lisinopril 40 mg tablet 09-25 00:00: 00 Yes [id number] 40 mg DAILY 40 mg DAILY (route: oral) Med Classific ation: Cardiovas cular Therapy Agents metformin 1,000 mg tablet 09-25 00:00: 00 09-22 23:59 :00 No [id number] 1000 mg 2 TIMES DAILY 1000 mg 2 TIMES DAILY (route: oral) Med Classific ation: Endocrine multivitami n tablet 09-25 00:00: 00 Yes [id number] 1 tablet DAILY 1 tablet DAILY (route: oral) Med Classific ation: Electroly te Balance-N utritiona l Products nifedipine ER 60 mg tablet,exte nded release 09-25 00:00: 00 Yes [id number] 60 mg EVERY PM 60 mg EVERY PM (route: oral) Med Classific ation: Cardiovas cular Therapy Agents pioglitazon e 15 mg tablet 09-25 00:00: 00 Yes [id number] 15 mg DAILY 15 mg DAILY (route: oral) Med Classific ation: Endocrine Tresiba FlexTouch U-100 insulin 100 unit/mL (3 mL) subcutaneou s pen 09-25 00:00: 00 Yes [id number] 10 In unit DAILY 10 In unit DAILY (route: subcutaneo ) Med Classific ation: Endocrine aspirin 81 mg tablet 09-22 00:00: 00 Yes [id number] 1 tablet DAILY 1 tablet DAILY (route: oral) Med Classific ation: Hematolog ical Agents docusate sodium 100 mg capsule 09-22 00:00: 00 Yes [id number] 1 capsule 2 TIMES DAILY 1 capsule 2 TIMES DAILY (route: oral) Med Classific ation: Gastroint estinal Therapy Agents ferrous sulfate 325 mg (65 mg iron) tablet 09-22 00:00: 00 Yes [id number] 1 tablet 2 TIMES DAILY 1 tablet 2 TIMES DAILY (route: oral) Med Classific ation: Electroly te Balance-N utritiona l Products isosorbide mononitrate ER 30 mg tablet,exte nded release 24 hr 09-22 00:00: 00 Yes [id number] 1 tablet DAILY 1 tablet DAILY (route: oral) Med Classific ation: Cardiovas cular Therapy Agents Vital Signs Vital Name Observation Time Observation Value Commen ts Temperature 2024-09-19 08:56:00.000 97.2 [degF] Temperature 2024-09-03 12:14:00.000 97.8 [degF] Temperature 2024-09-03 06:06:00.000 98 [degF] Temperature 2024-09-01 03:34:00.000 97.5 [degF] Temperature 2024-08-26 11:56:00.000 97.5 [degF] Temperature 2024-08-25 11:05:00.000 97.9 [degF] Temperature 2024-08-24 [...] 97.5 [degF] Temperature 2024-07-22 11:58:00.000 97.5 [degF] BMI (%) 2024-08-30 12:03:01.000 24 kg/m2 Height 2024-08-30 12:02:53.000 63 [in_us] Pulse 2024-09-19 08:56:00.000 84 /min Pulse 2024-09-01 03:34:00.000 84 /min O2 Saturation (%) 2024-09-19 08:56:00.000 96 % Respirations 2024-09-19 08:56:00.000 16 /min Respirations 2024-09-01 03:34:00.000 20 /min Weight (lbs) 2024-08-30 12:03:01.000 140 [lb_av] Systolic Blood Pressure 2024-09-19 08:56:00.000 154 mm [Hg] Systolic Blood Pressure 2024-09-01 03:34:00.000 142 mm [Hg] Diastolic Blood Pressure 2024-09-19 08:56:00.000 70 mm [Hg] Diastolic Blood Pressure 2024-09-01 03:34:00.000 84 mm [Hg] Plan of Treatment Planned Activity [...] AWARENESS FOR SAFETY AND WILL NOTIFY CLINICAL INK BLENDER AND PHYSICIAN/PROVIDER WITH ANY CHANGE IN CONDITION. [code = SKILLED NURSE WILL MAINTAIN SITUATIONAL AWARENESS FOR SAFETY AND WILL NOTIFY CLINICAL INK BLENDER AND PHYSICIAN/PROVIDER WITH ANY CHANGE IN CONDITION.] [...] CLIENT IN DEVELOPMENT OF PLANNED ACTIVITIES] Goal Patient Goal - TO HAVE LESS PAIN Goal 2023-11-20 Patient Goal - LOWERING MY B LOOD PRESSURE Goal 2024-01-19 Patient Goal - LOWERING MY B LOOD PRESSURE Goal 2024-03-19 Patient Goal - LOWERING MY B LOOD PRESSURE Goal 2024-05-18 Patient Goal - LOWERING MY B LOOD PRESSURE Goal 2024-07-17 Patient Goal - LOWERING MY B LOOD PRESSURE Goal 2024-09-19 Patient Goal - LOWERING MY B LOOD [...] Notes Progress Notes <paragraph>[Visit Date: 2024 by MEENAKSHI LOCKWOOD RN]:</paragraph><paragraph>RECERT SEPTEMBER 19 PATIENT IS A 63 YEAR OLD FEMALE WHO CURRENTLY RESIDES IN AN APARTMENT COMPLEX WITH MULTIPLE FAMILY MEMBERS ON A FIRST FLOOR APARTMENT. THERE ARE THREE STEPS TO ENTER INTO THE APARTMENT VIA THE BACK PORCH. DX : DEPRESSION, HTN, T2DM, MOOD DISORDER, ARTHRITIS MENTAL STATUS ASSESSMENT: PATIENT WAS ALERTED ORIENTED TO PERSON PLACE AND TIME. PATIENT DENIED ANY AUDITORY OR VISUAL HALLUCINATIONS PATIENT DENIED ANY THOUGHTS OF HARMING SELF OR OTHERS. PATIENT REPORTED SLEEP PATTERN DISTURBANCES SINCE BEING STOPPED OFF OF A MEDICATION, PATIENT UNABLE TO STATE WHICH MEDICATION IT WAS BUT DAUGHTER BELIEVES IT WAS A MUSCLE RELAXER SUCH FLEXERIL PER DAUGHTER REPORT. PATIENT REPORTS THAT SHE FEELS VERY TENSE AND MUCH PAIN AT NIGHT. PATIENT REPORTED FREQUENT AWAKENING. DENIED ANY NIGHT TERRORS. PHYSICAL ASSESSMENT: PATIENT DENIED ANY COUGHING WHEEZING OR SHORTNESS OF BREATH. NONE IS OBSERVED DURING THE VISIT. PATIENTS INVITING CHEST PAIN HOWEVER UPON ASSESSMENT IT WAS NOTED TO HAVE PLUS ONE NON-PITTING EDEMA ON THE LEFT LOWER EXTREMITY. PALPABLE PULSES DISTAL, HOWEVER PATIENT IS VERY TENDER TO THE TOUCH WHEN NURSES ASSESSING. NO DISCOLORATION NOTED. THIS NURSE PLACED A CALL TO PATIENTS PRIMARY CARE OFFICE LEFT A MESSAGE, NURSE CALLED BACK SHORTLY AFTER STATING THAT THEY WERE GOING TO CALL THE PATIENT'S DAUGHTER AND HAVE HER COME INTO THE CLINIC TODAY FOR AN ASSESSMENT. THIS NURSE SPOKE WITH THE DAUGHTER WHO WAS IN AGREEMENT AND HAD PLANNED TO TAKE HER MOM. PATIENTS VITAL SIGNS WERE STABLE. PATIENTS DENIED ANY HEADACHE. DENIED ANY NAUSEA VOMITING HER DIARRHEA. REPORTED REGULAR BOWEL MOVEMENT. ABDOMEN IS SOFT AND NON-TENDER. BOWEL SOUNDS ARE HEARD ALL FOUR QUADRANTS. PATIENT DENIED ANY PAIN OR BURNING WITH URINATION PATIENT NOTICED TO BE FURNITURE SURFING WHEN AMBULATING AND SHE STATED THAT THIS IS BECAUSE HER LEFT LEG IS PAINFUL. LEFT CALF IS NOT NOTED TO BE WARM TO THE TOUCH. NO INCREASE SWELLING IN THE CALF AREA PATIENT ABLE TO FLEX FOOT WITHOUT PAIN. PATIENT IS BEING RECERTIFIED ON NURSING SERVICES FOR DAILY INTERMEDIATE VISITS FOR CHRONIC DISEASE MANAGEMENT AND EDUCATION, MEDICATION MANAGEMENT AND EDUCATION, MEDICATION COMPLIANCE ASSESSMENT, MENTAL STATUS ASSESSMENT, VITAL SIGN ASSESSMENT, MEDICATION RECONCILIATION, MEDICATION ADMINISTRATION AND PREPOURSE. THERE ARE NO AVAILABLE OR WILLING CAREGIVERS AT THIS TIME TO ASSUME RESPONSIBILITY. PATIENT HAS HISTORY OF FORGETFULNESS WITH MEDICATION</paragraph> Encounters Start Date/Time End Date/Time Encounter Type Admission Type Attending Clinicians Care Facility Care Department Encounter ID Discharge Date Discharge Status Discharge Condition Discharge Reason Percent Goals Met 2024-07-22 00:00:00 2024-09-19 00:00:00 Outpatient RECERTIFIC ERIC [facility]AMPAGNE [facility] [id number] 37.84
--- OUTSIDE RECORDS SUMMARY | 2024-09-24 12:23 | XMS_ITS | Encounter Summary ---
Author Organization [employer] Address [address] [place] [address] Care Team Providers Care Application Specialist Name Role Phone Radha Jamison DO Primary Care Provider [phone] Nelia Sullivan PharmD Unavailable [phone] Reason for Visit * Reason Comments Med Refill Encounter Details Date Type Department Care Team ([facility] st Contact Info) Description 02/29/2024 Refill [facility] [address] [place] [address] Radha Jamison DO [address] [place] [address] Chronic bilateral low back pain, unspecified whether sciatica present Social History Tobacco Use Types Packs/Day Years Used Date Smoking Tobacco: Every Day Cigarettes 1 45.1 Started: 08/31/1979 Passive Smoke Exposure: Current Smokeless [...] the past 12 months, has t he [employer], gas, oil or water [employer] threatened to shut off services in your [...] until seen by PCP or seen by CONSTRUCTION PROJECT MANAGER. Scheduled CONSTRUCTION PROJECT MANAGER 03/05/24. documented in this encounter Plan of Treatment Upcoming Encounters Date Type Department Care Team (Late st Contact Info) Description 10/03/2024 9:30 AM EDT Office Visit [facility] [address] [place] [id number] Vickie Penaloza MD [address] [place] [address] 10/18/2024 10:00 AM EDT Medication Management [facility] [address] [place] [id number] Nelia Sullivan, PharmD [address] [place] [address] documented as of this encounter Goals Goal Patient Goal Type Associated Problems Recent Progress Patient-Stated? Author Record your blood pressure once per day Blood Pressure No Nelia Sullivan PharmD Blood Pressure < 140/90 Blood Pressure 158/78(2024 11:06 AM EDT) No Nelia Sullivan PharmD Smoking cessation General No Nelia Sullivan PharmD Patient will adhere to medication regimen General No Nelia Sullivan PharmAdrian Hemoglobin A1c < 7 Result Component 10.1(09/04/19 4:57 PM EDT) No Abdias Murillo PharmD Record [...] documented as of this encounter Care Teams Application Specialist Relationship Specialty Start Date End Date Radha Jamison DO [address] [place] [id number] PCP - General Family Medicine 01/26/12 Nelia Sullivan PharmD [address] [place] [id number] Pharmacist Internal Medicine 08/31/23 Laurel Monterroso [employer] DetectiveJava Technical Manager 10/27/22 Saige Aguilar 09/26/23 documented as of this encounter
[2024-09-24 14:04] LABS: Anion Gap 10 (12-20); Blood Urea Nitrogen 11 mg/dL (9-16); Calcium 8.1 mg/dL (8.4-10.2); Carbon Dioxide 28 mmol/L (22-29); Chloride 105 mmol/L (96-108); Estimated Glomerular Filt Rate 55; Potassium 3.9 mmol/L (3.3-5.1); Sodium 139 mmol/L (135-145)
== END 2024-09-24 11:16 | disposition home or self-care (01) ==
LOC: HO.HHCL 11:15
PROVIDERS: PCP Family Medicine; Referring Provider Internal Medicine Hypertension Specialist; Visit Provider Family Medicine
DX: I10 Essential (primary) hypertension (principal)
CPT/HCPCS: 36415; 80048

== ENCOUNTER 2024-10-15 01:54 | Inpatient (IN) | payer MEDICAID, SELFPAY ==
[2024-10-15] VITALS (17 sets, daily range): BP systolic 135–239; BP diastolic 60–111; PULSE 68–89; RESP 15–21; TEMP 36.5–37.2; O2SAT 93–100; BMI 26.4; BMI 29.6
--- NOTE | 2024-10-15 | ECG_ITS ---
Test Reason : chest pain Blood Pressure : */* mmHG Vent. Rate : 79 BPM Atrial Rate : 79 BPM P-R Int : 140 ms QRS Dur : 92 ms QT Int : 400 ms P-R-T Axes : 38 3 163 degrees QTcB Int : 458 ms Normal sinus rhythm Incomplete right bundle branch block Moderate voltage criteria for LVH, may be normal variant ( R in aVL , [place] product ) Nonspecific ST and T wave abnormality Abnormal ECG When compared with ECG of 26-Aug-2024 23:41, No significant change was found Referred By: Generic ED Physician Electronically Signed By: Ghanshyam Daniel
--- NOTE | ~2024-10-15 | US_ITS ---
EXAMINATION: US EXTRACRANIAL CAROTID DUPLEX, BILATERAL CLINICAL INFORMATION: High degree stenosis, left carotid artery. COMPARISON: Correlated to CT angiogram head neck dated October 15, 2024 at 4:35 AM. TECHNIQUE: Real-time ultrasound and Doppler techniques (integrating B-mode 2-D vascular images, Doppler spectral analysis and color-flow Doppler imaging) were utilized to interrogate the extracranial carotid arteries, the vertebral arteries and proximal subclavian arteries bilaterally. The degree of stenosis is determined by criteria similar to NASCET. FINDINGS: Right Side: 1. There is irregular shaped mixed atherosclerotic plaque seen in the bifurcation/proximal ICA region. 2. The common carotid artery PSV proximally is 76 cm/s and distally 91 cm/s. 3. The proximal internal carotid artery velocities are 81 cm/s systolic and 31 cm/s diastolic. Distal segment: 128 cm/s. 4. The proximal external carotid artery PSV is 235 cm/s. 5. The vertebral artery shows antegrade flow. 6. The subclavian artery waveforms are triphasic. ICA/CCA ratio: 1.7. Left Side: 1. There is irregular shaped mixed atherosclerotic plaque seen in the bifurcation/proximal ICA region. 2. The common carotid artery PSV proximally is 84 cm/s and distally 158 cm/s. 3. The proximal internal carotid artery velocities are 362 cm/s systolic and 130 cm/s diastolic. Spectral broadening. 4. The proximal external carotid artery PSV is 321 cm/s. 5. The vertebral artery shows antegrade flow. 6. The subclavian artery waveforms are triphasic. ICA/CCA ratio: 4.4 US/US carotid duplex BI IMPRESSION: 1. RIGHT: Irregular shaped mixed plaque. 50-79% stenosis by ultrasound criteria. 2. LEFT: Irregular shaped mixed plaque. 80-99% stenosis by ultrasound criteria. Please refer to the CT angiogram head neck dated October 15, 2024. Electronically signed by: Sam Early MD 10/15/2024 02:51 PM EDT
--- NOTE | ~2024-10-15 | CT_ITS ---
CLINICAL HISTORY: severe headache, HTN CT Head without contrast. CT angiography head and neck with contrast. 3D Postprocessing. Comparison: None provided Findings: HEAD CT: No intra-axial mass, midline shift, hydrocephalus, or acute hemorrhage. Close to complete opacification of the left mastoid air cells due to secretions or inflammatory/infectious in nature. Correlate clinically. Clear middle ear cavities. Small right maxillary sinus polyp/retention cyst. The orbits are unremarkable. There is no acute fracture. HEAD AND NECK CTA: Dominant left vertebral artery. Atherosclerotic plaques associated with relatively 50% stenosis of the proximal aspect of the left V4. 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 Irregularity of the proximal aspect of the ECA due to age-indeterminate dissection or atherosclerosis. Less than 50% stenosis of the cervical ICA. Severe string like narrowing (partially associated with calcified atherosclerotic plaques) of the petrous ICA. Diffuse atherosclerotic plaques of the cavernous ICA. Irregularity of portions of the right ophthalmic artery. Left: Severe stenosis (up to 85%) of the distal most aspect of the CCA (in the vicinity of the bulb and the ICA bulb) with associated hard plaques. Diffuse atherosclerotic calcifications at level of the cavernous ICA. Otherwise no evidence of significant arterial stenosis, aneurysm, AVM or dissection. No evidence of abnormal intracranial enhancement. Patent dural venous sinuses. No acute fracture. IMPRESSION: 1. No acute intracranial finding. 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 Irregularity of the proximal aspect of the ECA due to age-indeterminate dissection or atherosclerosis. Less than 50% stenosis of the cervical ICA. Severe string like narrowing (partially associated with calcified atherosclerotic plaques) of the petrous ICA. Diffuse atherosclerotic plaques of the cavernous ICA. Irregularity of portions of the right ophthalmic artery. 3. Left: Severe stenosis (up to 85%) of the distal most aspect of the CCA (in the vicinity of the bulb and the ICA bulb) with associated hard plaques. Diffuse atherosclerotic calcifications at level of the cavernous ICA. 4. Close to complete opacification of the left mastoid air cells due to secretions or inflammatory/infectious in nature. Correlate clinically. Clear middle ear cavities. * if clinically indicated further evaluation with brain MRI +/-MRA neck would be of value. This document has been electronically signed by: Amanda Casarez MD on 10/15/2024 06:06:25
--- NOTE | ~2024-10-15 | XR_ITS ---
CLINICAL HISTORY: chest pain 1 view chest x-ray. Comparison: CR - XR CHEST 1V - 08/27/24 00:11 EDT Findings: No consolidation, pneumothorax, or effusion. Heart size normal. Impression: 1. No radiographic evidence for an acute cardiopulmonary process. No focal pulmonary consolidation. This document has been electronically signed by: Stan Corona MD on 10/15/2024 04:29:02
--- NOTE | 2024-10-15 02:18 | ED.CHESTPAIN ---
HPI - Chest Pain General Chief Complaint: Chest Pain Stated Complaint: HYPERTENSION/CHEST PAIN Time Seen by Provider: 10/15/24 02:26 Source: patient, EMS and interpreter translator Mode of arrival: EMS Limitations: language barrier History of Present Illness ED Provider: Dr. Cornelia Clark HPI narrative: 63-year-old female with extensive medical history including CAD on Eliquis, PAD, diabetes, hypertension, hyperlipidemia, presenting with headache, bilateral leg pain and mid to low back pain that has been ongoing since it woke her from sleep tonight immediately prior to arrival. Describes sharp, stabbing back pain that is nonradiating. Denies associated chest pain. Had been feeling relatively well prior to this. Denies associated fever, cough or cold-type symptoms, abdominal pain, nausea or vomiting, bowel changes, urinary complaints, skin rashes. No recent travel. Has been taking all of her medications as prescribed. Related Data Home Medications ?Medication ?Instructions ?Recorded ?Confirmed aspirin 81 mg tablet,delayed 81 mg PO DAILY 01/02/20 08/27/24 release (Adult Low Dose Aspirin) atorvastatin 80 mg tablet (Lipitor) 80 mg PO BEDTIME 01/02/20 08/27/24 escitalopram oxalate 20 mg tablet 20 mg PO DAILY@1800 01/02/20 08/27/24 (Lexapro) mirtazapine 45 mg tablet 45 mg PO BEDTIME 01/02/20 08/27/24 multivitamin 1 tab PO DAILY 01/02/20 08/27/24 blood sugar diagnostic (FreeStyle #10 ea 03/30/21 08/08/24 Lite Strips) insulin degludec 100 unit/mL (3 14 unit subcut DAILY 10/03/22 08/27/24 mL) subcutaneous pen (Tresiba FlexTouch U-100 insulin) docusate sodium 100 mg capsule 100 mg PO BID 01/30/24 08/27/24 ezetimibe 10 mg tablet 10 mg PO DAILY 04/11/24 08/27/24 amitriptyline 50 mg tablet 50 mg PO BEDTIME 08/08/24 08/27/24 empagliflozin 12.5 mg-metformin 1 tab PO BID 08/08/24 08/27/24 1,000 mg tablet (Synjardy) gabapentin 600 mg tablet 600 mg PO BID 08/08/24 08/27/24 hydrochlorothiazide 50 mg tablet 50 mg PO DAILY 08/08/24 08/27/24 acetaminophen 650 mg 650 mg PO Q8H 08/27/24 08/27/24 tablet,extended release albuterol sulfate 90 mcg/actuation 2 puff inhalation Q6H PRN 08/27/24 08/27/24 aerosol inhaler (Ventolin HFA) Shortness Of Breath Or Wheezing [id number]-acetaminophen 30 ml PO Q4H PRN Cough 08/27/24 08/27/24 6.25 mg-30 [id number]/15mL oral liqd ferrous sulfate 325 mg (65 mg 325 mg PO BID PRN Iron Levels 08/27/24 08/27/24 iron) tablet fluticasone propionate 50 2 spray intranasal DAILY 08/27/24 08/27/24 mcg/actuation nasal spray,suspension isosorbide mononitrate 30 mg 30 mg PO DAILY 08/27/24 08/27/24 tablet,extended release 24 hr lisinopril 40 mg tablet 40 mg PO DAILY 08/27/24 08/27/24 loratadine 10 mg tablet 10 mg PO DAILY 08/27/24 08/27/24 mometasone 100 mcg/actuation HFA 2 puff inhalation BID 08/27/24 08/27/24 aerosol inhaler (Asmanex HFA) nicotine (polacrilex) 2 mg buccal 2 mg PO Q1-2H PRN Nicotine Cravings 08/27/24 08/27/24 lozenge omeprazole 20 mg capsule,delayed 40 mg PO BIDWM@0800,1700 08/27/24 08/27/24 release semaglutide 0.25 mg or 0.5 mg (2 0.5 mg subcut FR 08/27/24 08/27/24 mg/3 mL) subcutaneous pen injector (Ozempic) Previous Rx's ?Medication ?Instructions ?Recorded pioglitazone 15 mg tablet 15 mg PO DAILY 30 days #30 tabs 12/02/20 carvedilol 25 mg tablet (Coreg) 25 mg PO BID #120 tabs 04/29/24 nifedipine 90 mg tablet,extended 90 mg PO BEDTIME #90 tabs 04/29/24 release 24 hr benzonatate 200 mg capsule 200 mg PO TID PRN cough #20 caps 05/18/24 apixaban 5 mg tablet (Eliquis) 5 mg PO BID #74 tabs 08/28/24 cefuroxime axetil 500 mg tablet 500 mg PO Q12H #8 tabs 08/28/24 Allergies Allergy/AdvReac Type Severity Reaction Status Date / Time latex (LATEX) Allergy Severe RASH Verified 10/15/24 02:06 naproxen (From NAPROSYN) AdvReac Intermediate TACHYCARDIA Verified 10/15/24 02:06 Review of Systems Review of Systems: As per HPI, full review of systems performed and negative but for the above mentioned pertinent positives and negatives. [facility] Past Medical History Medical History Chronic anemia NSTEMI (non-ST elevated myocardial infarction) Mild aortic valve stenosis LORE (obstructive sleep apnea) Chronic low back pain Lumbar spinal stenosis HTN (hypertension) Vitamin D deficiency HLD (hyperlipidemia) T2DM (type 2 diabetes mellitus) H. pylori infection CAD (coronary artery disease) Cyst (solitary) of breast Kidney calculi Arthritis Asthma HTN (hypertension) Diabetes Surgical History History of right-sided carotid endarterectomy (~11/2022) S/P aortogram History of esophagogastroduodenoscopy (EGD) Hx of colonoscopy History of breast surgery History of cardiac cath Family History Family History Mother Diabetes Liver cancer Social History Social History Household Members: Family and Children Household Members Other:: friend and adult son Housing: House Are you a primary intensive care specialist to a significant other at home: No Do you presently have visiting nurse or other home services: Yes (RN 2x/week) Alcohol intake: never Comment: refuses bed alarm Patient Tobacco Use Status: Current everyday Tobacco user Tobacco use type: Cigarette Cigarette Packs Per Day: 1 Years Smoked: 30 Smoked in Last 30 Days: Yes e-Cigarette/Vaping Use: Currently Using Second Hand Smoke Exposure: Yes Use of substances other than those prescribed or required for medical reasons: No Advance Directives: Yes Advance Directives on File: Yes Advance Directives Date on File: 09/26/23 service: No Current occupational status: unemployed and disabled Physical Exam Exam: Exam: GENERAL: Ill-Appearing, appears uncomfortable. SKIN: Normal skin color for ethnicity, warm, dry, no rashes noted. HEENT: Normocephalic, atraumatic, no stridor, dry mucous membranes, dentition intact, EOMI, PERRLA. NECK: Soft, supple, full ROM, midline structures nontender, no step-offs, no deformities, no lymphadenopathy. CHEST: Heart regular rhythm, no murmurs, symmetric chest rise and fall. PULMONARY: Clear to auscultation bilaterally, diminished at the bases, no labored breathing, no wheezes/rhales/rhonchi. ABDOMINAL: Soft, nondistended, nontender, positive bowel sounds in all quadrants. : Deferred. MUSCULOSKELETAL: Normal tone, full range of motion, no deformities, 1+ peripheral edema, 2+ pedal pulses bilaterally. NEURO: Alert and oriented x3, CN II through XII intact, equal strength and sensation bilateral upper and lower extremities, no focal neurologic deficits. PSYCHIATRIC: Flat affect, fluid speech, good eye contact and appropriate demeanor. Vital Signs: Vital Signs: Last Vital Signs Temp 98.7 F 10/15/24 01:58 Pulse 79 10/15/24 05:18 Resp 17 10/15/24 05:18 BP 178/63 H 10/15/24 05:18 Pulse Ox 97 10/15/24 05:18 O2 Del Method Room Air 10/15/24 05:18 BMI result Body Mass Index 26.4 Medications Administered Discontinued Medications Generic Name Dose Route Start Last Admin Trade Name Royalq PRN Reason Stop Dose Admin Diazepam 5 mg 10/15/24 05:01 10/15/24 05:15 Diazepam 10 Mg/2 Ml Cartridge IVPUSH 10/15/24 05:02 5 mg STAT STA Administration Hydralazine HCl 10 mg 10/15/24 03:29 10/15/24 03:34 Hydralazine Hcl 20 Mg/Ml Vial IVPUSH 10/15/24 03:30 10 mg ONCE ONE Administration Protocol Hydromorphone HCl 1 mg 10/15/24 04:19 10/15/24 04:39 Hydromorphone Hcl 1 Mg/Ml Syringe IVPUSH 10/15/24 04:20 1 mg ONCE ONE Administration Protocol Lactated Ringer's 1,000 mls @ 999 mls/hr 10/15/24 02:35 10/15/24 03:48 Lr IV 10/15/24 03:35 0 mls/hr .Q1H1M ONE Infusion Iohexol 70 ml 10/15/24 04:26 10/15/24 04:35 Iohexol 350 Mg/Ml 100 Ml Infus..Btl IV 10/15/24 04:27 70 ml ONCE ONE Administration Morphine Sulfate 4 mg 10/15/24 02:35 10/15/24 03:15 Morphine Sulfate 4 Mg/Ml Cartridge IVPUSH 10/15/24 02:36 4 mg ONCE ONE Administration Protocol Nitroglycerin 1 inch 10/15/24 03:26 10/15/24 03:33 Nitroglycerin 2 % Oint 1 Gm Packet TRANSDERMA 10/15/24 03:27 1 inch ONCE ONE Administration Ondansetron HCl 4 mg 10/15/24 02:35 10/15/24 03:16 Ondansetron Hcl 4 Mg/2 Ml Vial IVPUSH 10/15/24 02:36 4 mg ONCE ONE Administration Medical Decision Making Medical Decision Making MDM Narrative: Patient presents with a chief complaint of headache. The differential diagnosis on this patient includes but is not limited to migraine headache, tension headache, cluster headache, subarachnoid hemorrhage, dissection, venous thrombosis, meningitis, sinusitis, bleeding or tumor. Based on history and physical exam, appropriate work-up was initiated. Medicated with morphine for headache. Patient has extensive cardiac history. There is a question of potential chest pain initially from EMS however, the patient denies chest pain to me now. She also denies shortness of breath. Her EKG is showing some anterior ST elevations which are similar to previous EKGs although not her most recent previous EKG from August of this year. She does have T-wave flattening with very minor ST depressions inferior and laterally. Concern for potential ischemia. She is hypertensive which is likely related to her pain and poorly-controlled disease. Plan for morphine for headache, repeat EKG in about an hour, cardiac enzymes and blood work. No signs of meningismus on exam. 6:31 AM 10/15/2024 (Dr. Cornelia Clark, D.O.) CTA showing evidence of aneurysm in the right carotid (potentially dissecting? ). We will consult vascular surgery, Dr. Aragon. 6:33 AM 10/15/2024 (Dr. Cornelia Clark, D.O.) blood pressure and headache better controlled after multiple medications including morphine, nitroglycerin, hydralazine, Valium and Dilaudid. case discussed with Dr. Aragon who recommends admission for blood pressure control and further workup of stenosis in the carotids, particularly on the left. No emergent intervention required at this point. We will discuss case with hospitalist. Admitted in guarded condition. Differential Diagnosis Differential Diagnoses: The differential diagnosis associated with the presentation includes (As above) Admission/Observation Consideration of admission/observation: Escalation of care including admission/observation considered Consult Healthcare Provider Management of the patient was discussed with: Hospitalist and Surfacing Machine Operator (Vascular surgery, Dr. Aragon) Lab Data MDM Lab Attestation statement: I reviewed the patient's lab results. 10/15/24 02:37 10/15/24 02:37 Labs: Lab Results 10/15/24 Range/Units 02:37 WBC 6.9 (4.8-10.8) X10*3/uL RBC 3.60 L (4.20-5.50) X10*6/uL Hgb 10.5 L (12.0-16.0) g/dl Hct 31.0 L (37.0-47.0) % MCV 86.1 (80.0-98.0) fL MCH 29.2 (27.0-33.0) pg MCHC 33.9 (31.0-35.0) g/dl RDW 14.2 (11.0-16.0) % Plt Count 284 (160-400) X10*3/uL MPV 9.5 (9.4-12.3) fL Immature Gran % (Auto) 0.3 (0.0-0.4) % Neut % (Auto) 61.8 (45-73) % Lymph % (Auto) 25.7 (20-40) % [place] % (Auto) 7.1 (2-11) % Eos % (Auto) 4.5 H (0-4) % Baso % (Auto) 0.6 (0-2) % Lymph # (Auto) 1.8 (1.2-4.9) X10*3/uL [place] # (Auto) 0.5 (0.1-1.2) X10*3/uL Eos # (Auto) 0.3 (0.0-0.4) X10*3/uL Baso # (Auto) 0.0 (0.0-0.2) X10*3/uL Abs Immat Gran (auto) 0.02 (0.00-0.03) X10*3/uL Absolute Neuts (auto) 4.2 (2.0-8.3) x10*3/uL Absolute Nucleated RBC 0.000 (0.0-0.012) X10*3/uL Nucleated RBC % (auto) 0.0 (0.0-0.2) /100WBC Sodium 140 (135-145) mmol/L Potassium 3.9 (3.3-5.1) mmol/L Chloride 107 (96-108) mmol/L Carbon Dioxide 25 (22-29) mmol/L Anion Gap 12 (12-20) BUN 23 H (9-16) mg/dL Creatinine 1.09 (0.5-1.4) mg/dL Estim Creat Clear Calc 43.7 Estimated GFR 51 Random Glucose 399 H* (60-115) mg/dL Calcium 8.2 L (8.4-10.2) mg/dL Magnesium 2.0 (1.6-2.6) mg/dL Total Bilirubin 0.2 (0.0-1.0) mg/dL AST 14 (5-31) U/L ALT 7 (0-31) U/L Alkaline Phosphatase 97 (39-117) U/L Troponin I High Sens 7.6 (<3.5-17.0) ng/L Total Protein 5.5 L (6.5-8.0) g/dL Albumin 2.7 L (3.5-5.0) g/dL Independent Interpretation I performed an independent interpretation of an: EKG Interpretation: My independent interpretation of the ECG reveals normal sinus rhythm with rate of 79, normal axis, normal intervals, LVH, less than [address]-elevation in V1 and V2, no reciprocal ST depressions, T-wave flattening in the inferior lateral leads, relatively unchanged from previous on 08/26/2024. Radiology Impression Discussion of test interpretation with radiology: I have reviewed the radiologist's reading. Radiologist Impression: CT Head without contrast. CT angiography head and neck with contrast. 3D Postprocessing. Comparison: None provided Findings: HEAD CT: No intra-axial mass, midline shift, hydrocephalus, or acute hemorrhage. Close to complete opacification of the left mastoid air cells due to secretions or inflammatory/infectious in nature. Correlate clinically. Clear middle ear cavities. Small right maxillary sinus polyp/retention cyst. The orbits are unremarkable. There is no acute fracture. HEAD AND NECK CTA: Dominant left vertebral artery. Atherosclerotic plaques associated with relatively 50% stenosis of the proximal aspect of the left V4. 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 Irregularity of the proximal aspect of the ECA due to age-indeterminate dissection or atherosclerosis. Less than 50% stenosis of the cervical ICA. Severe string like narrowing (partially associated with calcified atherosclerotic plaques) of the petrous ICA. Diffuse atherosclerotic plaques of the cavernous ICA. Irregularity of portions of the right ophthalmic artery. Left: Severe stenosis (up to 85%) of the distal most aspect of the CCA (in the vicinity of the bulb and the ICA bulb) with associated hard plaques. Diffuse atherosclerotic calcifications at level of the cavernous ICA. Otherwise no evidence of significant arterial stenosis, aneurysm, AVM or dissection. No evidence of abnormal intracranial enhancement. Patent dural venous sinuses. No acute fracture. IMPRESSION: 1. No acute intracranial finding. 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 Irregularity of the proximal aspect of the ECA due to age-indeterminate dissection or atherosclerosis. Less than 50% stenosis of the cervical ICA. Severe string like narrowing (partially associated with calcified atherosclerotic plaques) of the petrous ICA. Diffuse atherosclerotic plaques of the cavernous ICA. Irregularity of portions of the right ophthalmic artery. 3. Left: Severe stenosis (up to 85%) of the distal most aspect of the CCA (in the vicinity of the bulb and the ICA bulb) with associated hard plaques. Diffuse atherosclerotic calcifications at level of the cavernous ICA. 4. Close to complete opacification of the left mastoid air cells due to secretions or inflammatory/infectious in nature. Correlate clinically. Clear middle ear cavities. * if clinically indicated further evaluation with brain MRI +/-MRA neck would be of value. This document has been electronically signed by: Amanda Casarez MD on 10/15/2024 06:06:25 Independent Historian Clinical information obtained from an independent historian. History obtained from or confirmed by: EMS External Record Review External record reviewed: Inpatient record and Outpatient record Chronic Conditions Patient?s care impacted by: Diabetes and Hypertension Critical Care Time Critical Care Time Critical Care Time: Yes Total Critical Care Time: 40 Attestation: CRITICAL CARE TIME: 40 minutes of critical care time was spent in direct patient care at the bedside or in the immediate area with this patient. Critical care was necessary to treat or prevent imminent or life-threatening deterioration of the following conditions hypertensive crisis due to severe carotid stenosis, uncontrolled diabetes, severe peripheral arterial disease. This patient is high risk for decompensation and/or . This time was spent assessing and managing the patient, interpreting labs and imaging, coordinating care with other medical providers, gathering history from either the patient, their representatives, EMS or chart review, and discussing management with vascular surgery, hospitalist team. Discharge Plan Discharge Clinical Impression: Bilateral carotid artery stenosis, Hypertensive crisis, Headache, migraine Patient Disposition: Admitted As Inpatient Print Language: Ukrainian
[2024-10-15 02:42] LABS: Hematocrit 31.0 % (37.0-47.0); Hemoglobin 10.5 g/dl (12.0-16.0); Imm Gran Abs Auto 0.02 X10*3/uL (0.00-0.03); Imm Gran Pct Auto 0.3 % (0.0-0.4); Lymphocytes Absolute Auto 1.8 X10*3/uL (1.2-4.9); MANUAL DIFF FLAG NO; Mean Corpuscular HGB Conc 33.9 g/dl (31.0-35.0); Mean Corpuscular Hemoglobin 29.2 pg (27.0-33.0); Mean Corpuscular Volume 86.1 fL (80.0-98.0); NRBC Abs Auto 0.000 X10*3/uL (0.0-0.012); NRBC Pct Auto 0.0 /100WBC (0.0-0.2); Platelet Count 284 X10*3/uL (160-400); Red Blood Count 3.60 X10*6/uL (4.20-5.50); White Blood Count 6.9 X10*3/uL (4.8-10.8)
[2024-10-15 03:05] LABS: Alanine Aminotransferase 7 U/L (0-31); Albumin Level 2.7 g/dL (3.5-5.0); Alkaline Phosphatase 97 U/L (39-117); Anion Gap 12 (12-20); Aspartate Amino Transferase 14 U/L (5-31); Blood Urea Nitrogen 23 mg/dL (9-16); Calcium 8.2 mg/dL (8.4-10.2); Carbon Dioxide 25 mmol/L (22-29); Chloride 107 mmol/L (96-108); Creatinine Clr Calc Pharmacy 43.7; Estimated Glomerular Filt Rate 51; Magnesium 2.0 mg/dL (1.6-2.6); Potassium 3.9 mmol/L (3.3-5.1); Sodium 140 mmol/L (135-145); Total Protein 5.5 g/dL (6.5-8.0); Troponin-I High Sensitivity 7.6 ng/L (<3.5-17.0)
--- OUTSIDE RECORDS SUMMARY | 2024-10-15 03:05 | XMS_ITS | Encounter Summary ---
Author Organization [employer] Address [address] [place] [address] Care Team Providers Care Mobile Practice Lead Name Role Phone Radha Jamison DO Primary Care Provider [phone] Nelia Sullivan PharmD Unavailable [phone] Reason for Visit * Reason Comments Med Refill Encounter Details Date Type Department Care Team ([facility] st Contact Info) Description 03/19/2024 Refill [facility] MEDICINE [address] [place] [address] Radha Jamison DO [address] [place] [address] Chronic bilateral low back pain, unspecified whether [...] the past 12 months, has t he [employer] gas, oil or [employer] threatened to shut off services in your [...] Care Team (Late st Contact Info) Description 10/18/2024 10:00 AM EDT Medication Management [facility] MEDICINE [address] [place] [address] PuiaFeliceNelia, PharmD [address] [place] [address] documented as of this encounter Goals Goal Patient Goal Type Associated Problems Recent Progress Patient-Stated? Author Record your blood pressure once per day Blood Pressure No Puia, Nelia, PharmD Blood Pressure < 140/90 Blood Pressure 140/80(2024 9:33 AM EDT) No Puia, Nelia, PharmD Smoking cessation General No Puia, Nelia, PharmD Patient will adhere to medication regimen General No Puia, Nelia, PharmD Hemoglobin A1c < 7 Result Component 10.1(09/04/19 4:57 PM EDT) No DelAbdias hardy, PharmAdrian Record your blood sugar as directed [...] documented as of this encounter Care Teams Mobile Practice Lead Relationship Specialty Start Date End Date Radha Jamison DO [address] [place] [address] PCP - General Family Medicine 01/26/12 Nelia Sullivan PharmD [address] [place] [address] Pharmacist Internal Medicine 08/31/23 Laurel Monterroso Mammography TechnicianCant Gang Sawyer 10/27/22 Saige Aguilar 09/26/23 documented as of this encounter
--- OUTSIDE RECORDS SUMMARY | 2024-10-15 03:05 | XMS_ITS | Encounter Summary ---
Author Organization [employer] Address [address] [place] [address] Care Team Providers Care Manager Infrastructure Name Role Phone Radha Jamison DO Primary Care Provider [phone] Nelia Sullivan PharmD Unavailable [phone] Reason for Visit * Reason Comments Med Refill Encounter Details Date Type Department Care Team ([facility] st Contact Info) Description 05/17/2024 Refill [facility] MEDICINE [address] [place] [address] Radha Jamison DO [address] [place] [address] Chronic bilateral low back pain, unspecified whether [...] the past 12 months, has t he [employer], gas, oil or water [id number] threatened to shut off services in your [...] Description 10/18/2024 10:00 AM EDT Medication Management [facility] MEDICINE [address] [place] [address] PuiaFeliceNelia, PharmD [address] [place] [address] documented as of this encounter Goals Goal [...] as of this encounter Care Teams Manager Infrastructure Relationship Specialty Start Date End Date Radha Jamison DO [address] [place] [address] PCP - General Family Medicine 01/26/12 Nelia Sullivan PharmD [address] [place] [address] Pharmacist Internal Medicine 08/31/23 Laurel Monterroso Poultry KillerCertified Credit Counselor 10/27/22 Saige Aguilar 09/26/23 documented as of this encounter
--- OUTSIDE RECORDS SUMMARY | 2024-10-15 03:05 | XMS_ITS | Encounter Summary ---
Author Organization [employer] Address [address] [facility] 7t [place] [address] Care Team Providers Care Statistician Theoretical Name Role Phone Radha Jamison DO Primary Care Provider +1- [phone] Nelia Sullivan PharmD Unavailable [phone] Reason for Visit * Reason Onset Date Comments Nurse Triage 10/07/2024 Encounter Details Date Type Department Care Team ([facility] st Contact Info) Description 10/07/2024 Telephone [facility] MEDICINE [address] [place] [address] Radha Jamison DO [address] [place] [address] Nurse Triage Social History Tobacco Use Types Packs/Day Years [...] in a car, or in a park 10/03/[address] you li ve. Do you have problems with any of the following? Pests such as bugs, ants, or mice 10/03/2024 Food Insecurity Answer Date Recorded Within the past 12 months, y ou worried that your food would run out before you got money to buy more: Often true 10/03/2024 Within the past 12 months,th e food you bought just didn't last and you didn't have enough money to get more: Often true Transportation Answer Date Recorded In the past 12 months, has l ack of transportation kept you from medical appts, meetings, work or from getting things needed for daily living? Yes, it has kept me from medical appointments or getting medications. 10/03/2024 Utilities Answer Date Recorded In the past 12 months, has t he [employer], gas, oil or water [employer] threatened to shut off services in your home? No 10/03/2024 Depression Answer Date Recorded Patient Health Questionnaire-2 Score 3 12/21/2023 Internet Access Answer Date Recorded Internet Access Q1 Yes 10/03/2024 Internet Access Q2 Not on file 10/03/2024 Comments No Sex and Gender Information Value Date Recorded Sex Assigned at Female 12/13/2021 10:16 AM EDT Legal Sex Female 10:16 AM EDT Gender Identity Choose not to disclose 10:16 AM EDT Sexual Orientation Straight 12/13/2021 10 :16 AM EDT documented as of this encounter Miscellaneous Notes * Telephone Encounter - Gabriella Sin RN - 10/07/2024 12:10 PM EDT Triage call with [facility] parts interpreter [place] [id number] Pt reports swelling of bilateral lower extremities from ankle to thigh. Pt reports this started a long time ago . Pt last OV 10/03/24 HDF follow up. Pt is taking Eliquis as prescribed. Pt denies fever, chest pain, difficulty breathing, calf pain. Pt reports swelling is the same when wakes in the morning. Pt reports that tylenol is not helping pain. Pt is not working and is able to wear shoes and ambulates short distances. Pt is advised to come to the [facility] at [facility] to be seen by provider open till 8pm today, , mon. Open till 4pm th, fri and open till 12pm Sat. Pt is advised to obtain elastic stockings if possible to help with the edema, lay down in bed twice daily for 20min a day. Pt agrees with disposition. Insurance is verified as active. Protocol Used: Leg Swelling and Edema (Adult) Protocol-Based Disposition: See in Office or Video Visit within 3 Days Video visit not offered Positive Triage Question: * Mild swelling of both ankles (i.e., pedal edema) AND new-onset or getting worse * All higher-acuity triage questions were negative Care Advice Discussed: * Reasons To Call Back - Swelling becomes worse - Swelling becomes red or painful to the touch - Calf pain occurs and becomes constant - You become worse * Telephone Encounter - Boris Connolly - 10/07/2024 10:35 AM EDT Symptom: Leg Swelling - Not From Injury Outcome: Schedule an urgent appointment (within 1 hour) or talk to a nurse or provider soon Reason: Severe leg pain now The caller accepted this outcome. Contact pt at [phone] documented in this encounter Plan of Treatment Upcoming Encounters Date Type Department Care Team (Late st Contact Info) Description 10/18/2024 10:00 AM EDT Medication Management [facility] MEDICINE [address] [place] [address] Puia, Nelia, PharmD [address] [place] [address] documented as of this encounter Goals Goal Patient Goal Type Associated Problems Recent Progress Patient-Stated? Author Record your blood pressure once per day Blood Pressure No Puia, Nelia, PharmD Blood Pressure < 140/90 Blood Pressure 140/80(2024 9:33 AM EDT) No Puia, Neila, PharmD Smoking cessation General No Puia, Nelia, [...] documented as of this encounter Care Teams Statistician Theoretical Relationship Specialty Start Date End Date Radha Jamison DO [address] [place], [place] [phone] PCP - General Family Medicine 01/26/12 Nelia Sullivan PharmD [address] [place] [address] Pharmacist Internal Medicine 08/31/23 Laurel Monterroso Tester Rocket EngineMicrophone Operator 10/27/22 Saige Aguilar 09/26/23 documented as of this encounter
--- OUTSIDE RECORDS SUMMARY | 2024-10-15 03:05 | XMS_ITS | Encounter Summary ---
Author Organization [employer] Address 75 [facility] 7t [place] [address] Care Team Providers Care Car Changer Name Role Phone Radha Jamison DO Primary Care Provider Nelia Sullivan PharmD Unavailable [phone] Reason for Visit * Reason Comments Med Refill Encounter Details Date Type Department Care Team ([facility] Contact Info) Description 03/05/2024 Telephone [facility] MEDICINE [address] [place], [place] [phone] Radha Jamison DO [address] [place] [address] Med Refill Social History Tobacco Use Types [...] 10/18/2024 10:00 AM EDT Medication Management [facility] MEDICINE [address] [place] [address] Nelia Sullivan, PharmD [address] [place] [address] documented as of this encounter Goals Goal [...] Result Component 10.1(09/04/19 4:57 PM EDT) No DellogAbdias cotto, PharmD Record [...] documented as of this encounter Care Teams Car Changer Relationship Specialty Start Date End Date Radha Jamison DO [address] [place] [address] PCP - General Family Medicine 01/26/12 Nelia Sullivan, Camron [address] [place] [address] Pharmacist Internal Medicine 08/31/23 Laurel Monterroso Brick CleanerStock Preparer 10/27/22 Saige Aguilar 09/26/23 documented as of this encounter
--- OUTSIDE RECORDS SUMMARY | 2024-10-15 03:05 | XMS_ITS | Encounter Summary ---
Author Organization [employer] Address [address] [facility] 7t [place] [address] Care Team Providers Care Flagman Name Role Phone Radha Jamison DO Primary Care Provider +1- [phone] Abdias Murillo PharmD Unavailable Unavail able Nelia Sullivan PharmD Unavailable [phone] Reason for Visit * Reason Onset Date Comments uber 05/08/2023 Encounter Details Date Type Department Care Team ([facility] st Contact Info) Description 05/08/2023 Telephone [facility] MEDICINE [address] [place] [address] Radha Jamison DO [address] [place] [address] uber Social History Tobacco Use Types Packs/Day [...] / denial letter via mail. PT-1 Request [id number] Pending . [facility] [address] [place] [address] Auto Body Repairer noticed pt has pending referrals. Auto Body Repairer has added a note to each to add PT1 for referred tooffice. * Telephone Encounter - iGnna Stephen RN - 05/10/2023 9:31 AM EDT Uber booked for tomorrow 8:45am. TC placed to pt. And made pt. Aware. Pt. Also reports PT-1 expiredand would like it renewed for next time, to [facility] * Telephone Encounter - Ciera Carson - 05/10/2023 9:07 AM EDT Tc from pt calling in regards to message above. Pt also received a call, fiction and nonfiction prose writer does not see any documentation. Please contact pt at [phone] * Telephone Encounter - Ciera Carson - 05/08/2023 12:54 PM EDT Tc from pt states will need uber transportation for 05/10 with provider. Please contact pt at [phone] documented in this encounter Plan of Treatment Upcoming Encounters Date Type Department Care Team (Late st Contact Info) Description 10/18/2024 10:00 AM EDT Medication Management [facility] MEDICINE [address] [place] [address] Nelia Sullivan PharmD [address] [place] [address] documented as of this encounter Goals Goal Patient Goal Type Associated Problems Recent Progress Patient-Stated? Author Hemoglobin A1c < 7 Result Component 10.1( 4:57 PM EDT) No Abdias Murillo, PharmD documented as of this encounter Visit Diagnoses Not on filedocumented in this encounter Additional Health Concerns Assessment Noted Time PHQ-9 Depression Total Score: 4 11/09/19 23 11:27 AM EDT documented as of this encounter Care Teams Flagman Relationship Specialty Start Date End Date Radha Jamison DO [address] [place] [address] PCP - General Family Medicine 01/26/12 Abdias Murillo, PharmD [address] [place] [address] Pharmacist Internal Medicine 03/21/22 08/30/23 Nelia Sullivan, PharmD [address] [place] [address] Pharmacist Internal Medicine 08/31/23 Laurel Monterroso Patient Care CoordinatorCollege Tutor 10/27/22 Saige Aguilar 09/26/23 documented as of this encounter
--- OUTSIDE RECORDS SUMMARY | 2024-10-15 03:05 | XMS_ITS | Encounter Summary ---
Author Organization [employer] Address [address] [facility] 7t [place] [address] Care Team Providers Care Detector Car Operator Name Role Phone Radha Jamison DO Primary Care Provider +1- [phone] Nelia Sullivan PharmD Unavailable [phone] Reason for Visit * Reason Comments Med Refill Encounter Details Date Type Department Care Team ([facility] Contact Info) Description 12/28/2023 Refill [facility] MEDICINE [address] [place] [address] Radha Jamison DO [address] [place] [address] Chronic bilateral low back pain, unspecified whether [...] the past 12 months, has t he [employer], gas, oil or water [employer] threatened to shut off services in your [...] Description 10/18/2024 10:00 AM EDT Medication Management [facility] MEDICINE [address] [place] [address] PuiaFeliceNelia, PharmD [address] [place] [address] documented as of this encounter Goals Goal [...] documented as of this encounter Care Teams Detector Car Operator Relationship Specialty Start Date End Date Radha Jamison DO [address] [place] [address] PCP - General Family Medicine 01/26/12 Nelia Sullivan PharmD [address] [place] [address] Pharmacist Internal Medicine 08/31/23 Laurel Monterroso Aeronautical Project EngineerFoil Wrapper 10/27/22 Saige Aguilar 09/26/23 documented as of this encounter
--- OUTSIDE RECORDS SUMMARY | 2024-10-15 03:05 | XMS_ITS | Encounter Summary ---
Author Organization [employer] Address [address] [facility] 7t [place] [address] Care Team Providers Care Stogie Packer Name Role Phone Radha Jamison DO Primary Care Provider [phone]- [phone] Nelia Sullivan PharmD Unavailable [phone] Reason for Visit * Reason Onset Date Comments Med Refill 03/06/2024 Encounter Details Date Type Department Care Team (Late st Contact Info) Description 03/06/2024 Telephone [facility] MEDICINE [address] [place] [address] Radha Jamison DO [address] [place], [place] [phone] Med Refill Social History Tobacco Use Types [...] the past 12 months, has t he [employer], gas, oil or water [employer] threatened to shut off services in your [...] immediate release tablet To be sent to: [facility] pharmacy documented in this encounter Plan of Treatment Upcoming Encounters Date Type Department Care Team (Late st Contact Info) Description 10/18/2024 10:00 AM EDT Medication Management [facility] MEDICINE [address] [place] [address] Nelia Sullivan PharmD [address] [place] [address] documented as of this encounter Goals Goal Patient Goal Type Associated Problems Recent Progress Patient-Stated? Author Record your blood pressure once per day Blood Pressure No Puia, Nelia, PharmD Blood Pressure < 140/90 Blood Pressure 140/80(2024 9:33 AM EDT) No Nelia Sullivan, PharmD Smoking cessation General No PuiaNelia, PharmD Patient will adhere to medication regimen General No Nelia Sullivan, PharmD Hemoglobin A1c < 7 Result Component 10.1(09/04/19 25 4:57 PM EDT) No DellogAbdias cotto, PharmAdrian Record your blood sugar as directed [...] documented as of this encounter Care Teams Stogie Packer Relationship Specialty Start Date End Date Radha Jamison DO [address] [place] [address] PCP - General Family Medicine 01/26/12 Nelia Sullivan, PharmD [address] [place] [address] Pharmacist Internal Medicine 08/31/23 Laurel Monterroso Electrocardiograph RepairerCommercial Census Taker 10/27/22 Saige Aguilar 09/26/23 documented as of this encounter
--- OUTSIDE RECORDS SUMMARY | 2024-10-15 03:05 | XMS_ITS | Encounter Summary ---
Author Organization [employer] Address [address] [facility] 7t [place] [address] Care Team Providers Care Ferry Pilot Name Role Phone Radha Jamison DO Primary Care Provider +1- [phone] Nelia Sullivan PharmD Unavailable [phone] Reason for Visit * Reason Comments Med Refill Encounter Details Date Type Department Care Team ([facility] st Contact Info) Description 02/29/2024 Refill [facility] MEDICINE [address] [place] [address] Radha Jamison DO [address] [place] [address] Chronic bilateral low back pain, unspecified whether [...] the past 12 months, has t he [employer], gas, oil or water [employer] threatened to shut off services in your [...] until seen by PCP or seen by REDIPPER. Scheduled REDIPPER 03/05/24. documented in this encounter Plan of Treatment Upcoming Encounters Date Type Department Care Team (Late st Contact Info) Description 10/18/2024 10:00 AM EDT Medication Management [facility] MEDICINE [address] [place] [address] Nelia Sullivan PharmD [address] [place] [address] documented as of this encounter Goals Goal Patient Goal Type Associated Problems Recent Progress Patient-Stated? Author Record your blood pressure once per day Blood Pressure No Nelia Sullivan PharmD Blood Pressure < 140/90 Blood Pressure 140/80(2024 9:33 AM EDT) No Yazmin Sullivansa, PharmD Smoking cessation General No PuiaYazminsa, PharmD Patient will adhere to medication regimen [...] documented as of this encounter Care Teams Ferry Pilot Relationship Specialty Start Date End Date Radha Jamison DO [address] [place] [address] PCP - General Family Medicine 01/26/12 Nelia Sullivan, PharmD [address] [place] [address] Pharmacist Internal Medicine 08/31/23 Laurel Monterroso Section GangFolding Machine Tender 10/27/22 Saige Aguilar 09/26/23 documented as of this encounter
--- OUTSIDE RECORDS SUMMARY | 2024-10-15 03:06 | XMS_ITS | Encounter Summary ---
Author Organization [employer] Address [address] [facility] 7t [place] [address] Care Team Providers Care Final Assembly And Packing Supervisor Name Role Phone Radha Jamison DO Primary Care Provider [phone]- [phone] Abdias Murillo PharmD Unavailable Unavail able Nelia Sullivan PharmD Unavailable [phone] Reason for Visit * Reason Comments Med Refill Encounter Details Date Type Department Care Team (Late st Contact Info) Description 04/14/2023 Refill [facility] MEDICINE [address] [place], [place] [phone] Radha Jamison DO [address] [place], [place] [phone] Type 2 diabetes mellitus with hyperglycemia, with long-term current use of insulin ([facility]) Social History Tobacco Use [...] 10:00 AM EDT Medication Management [facility] MEDICINE [address] [place] [address] Nelia Sullivan PharmD [address] [place] [address] documented as of this encounter Goals Goal Patient Goal Type Associated Problems Recent Progress Patient-Stated? Author Hemoglobin A1c < 7 Result Component 10.1( 5 4:57 PM EDT) No Abdias Murillo PharmD documented as of this encounter Visit Diagnoses Diagnosis Type 2 diabetes mellitus with hyperglycemia, with long-term current use of insulin ([facility]) documented in this encounter Additional Health Concerns Assessment Noted Time PHQ-9 Depression Total Score: 4 11/09/19 23 11:27 AM EDT documented as of this encounter Care Teams Final Assembly And Packing Supervisor Relationship Specialty Start Date End Date Radha Jamison DO [address] [place] [phone] PCP - General Family Medicine 01/26/12 Abdias Murillo PharmD [address] [place] [address] Pharmacist Internal Medicine 03/21/22 08/30/23 Nelia Sullivan PharmD [address] [place] [address] Pharmacist Internal Medicine 08/31/23 Laurel Monterroso Insulation EstimatorAgency Legal Counsel 10/27/22 Saige Aguilar 09/26/23 documented as of this encounter
--- OUTSIDE RECORDS SUMMARY | 2024-10-15 03:06 | XMS_ITS | Encounter Summary ---
Author Organization [employer] Address [address] [facility] 7t [place] [address] Care Team Providers Care Bow Making Machine Operator Name Role Phone Radha Jamison DO Primary Care Provider Abdias Murillo PharmD Unavailable Unavail able Nelia Sullivan PharmD Unavailable [phone] Reason for Visit * Reason Comments Med Refill Encounter Details Date Type Department Care Team (Late st Contact Info) Description 08/11/2022 Refill [facility] MEDICINE [address] [place] [address] Radha Jamison DO [address] [place] [address] Anemia, unspecified type Social History Tobacco Use [...] for patient to contact Mary Reynolds at [phone]. documented in this encounter Plan of Treatment Upcoming Encounters Date Type Department Care Team (Late st Contact Info) Description 10/18/2024 10:00 AM EDT Medication Management [facility] MEDICINE [address] [place] [address] Nelia Sullivan PharmD [address] [place] [address] documented as of this encounter Goals Goal [...] documented as of this encounter Care Teams Bow Making Machine Operator Relationship Specialty Start Date End Date Radha Jamison DO [address] [place] [address] PCP - General Family Medicine 01/26/12 Abdias Murillo, PharmD [address] [place] [address] Pharmacist Internal Medicine 03/21/22 08/30/23 Nelia Sullivan, PharmD [address] [place] [address] Pharmacist Internal Medicine 08/31/23 Laurel Monterroso Counter Sales RepresentativeField Reviewer 10/27/22 Saige Aguilar 09/26/23 documented as of this encounter
--- OUTSIDE RECORDS SUMMARY | 2024-10-15 03:06 | XMS_ITS | Encounter Summary ---
Author Organization [employer] Address 75 [facility] 7t [place] [address] Care Team Providers Care Bakeshop Cleaner Name Role Phone Radha Jamison DO Primary Care Provider [phone]- [phone] Nelia Sullivan PharmD Unavailable [phone] Reason for Visit * Reason Onset Date Comments Med Refill 05/07/2024 Encounter Details Date Type Department Care Team (Late st Contact Info) Description 05/07/2024 Telephone [facility] MEDICINE [address] [place] [address] Radha Jamison DO [address] [place], [place] [phone] Med Refill Social History Tobacco Use Types [...] the past 12 months, has t he [employer], gas, oil or water [employer] threatened to shut off services in your [...] immediate release tablet To be sent to: [facility] Pharmacy documented in this encounter Plan of Treatment Upcoming Encounters Date Type Department Care Team (Late st Contact Info) Description 10/18/2024 10:00 AM EDT Medication Management [facility] MEDICINE [address] [place], [place] [phone] Nelia Sullivan PharmD [address] [place] [address] documented as of this encounter Goals Goal Patient Goal Type Associated Problems Recent Progress Patient-Stated? Author Record your blood pressure once per day Blood Pressure No Puia, Nelia, PharmD Blood Pressure < 140/90 Blood Pressure 140/80(2024 9:33 AM EDT) No Nelia Sullivan PharmD Smoking cessation General No Nelia Sullivan, PharmD Patient will adhere to medication regimen General No Nelia Sullivan PharmD Hemoglobin A1c < 7 Result Component 10.1(09/04/19 25 4:57 PM EDT) No Abdias Murillo PharmD [...] documented as of this encounter Care Teams Bakeshop Cleaner Relationship Specialty Start Date End Date Radha Jamison DO [address] [place] [address] PCP - General Family Medicine 01/26/12 Nelia Sullivan PharmD [address] [place] [address] Pharmacist Internal Medicine 08/31/23 Laurel Monterroso Hosiery RepairerChicle Grinder Feeder 10/27/22 Saige Aguilar 09/26/23 documented as of this encounter
--- OUTSIDE RECORDS SUMMARY | 2024-10-15 03:06 | XMS_ITS | Encounter Summary ---
Author Organization [employer] Address [address] [facility] 7t [place] [address] Care Team Providers Care Senior Mechanical Development Engineer Name Role Phone Radha Jamison DO Primary Care Provider [phone]- [phone] Abdias Murillo PharmD Unavailable Unavail able Nelia Sullivan PharmD Unavailable [phone] Reason for Visit * Reason Comments Med Refill Encounter Details Date Type Department Care Team (Late st Contact Info) Description 08/30/2023 Refill [facility] MEDICINE [address] [place] [address] Radha Jamison DO [address] [place] [address] Chronic bilateral low back pain, unspecified whether [...] Description 10/18/2024 10:00 AM EDT Medication Management [facility] MEDICINE [address] [place] [address] Puia, Nelia, PharmD [address] [place] [address] documented as of this encounter Goals Goal [...] as of this encounter Care Teams Senior Mechanical Development Engineer Relationship Specialty Start Date End Date Radha Jamison DO [address] [place] [address] PCP - General Family Medicine 01/26/12 Abdias Murillo PharmD [address] [place] [address] Pharmacist Internal Medicine 03/21/22 08/30/23 Nelia Sullivan PharmD [address] [place] [address] Pharmacist Internal Medicine 08/31/23 Laurel Monterroso Legal Billing SpecialistAutomatic Glove Former 10/27/22 Saige Aguilar 09/26/23 documented as of this encounter
--- OUTSIDE RECORDS SUMMARY | 2024-10-15 03:06 | XMS_ITS | Encounter Summary ---
Author Organization [employer] Address [address] [facility] 7t [place] [address] Care Team Providers Care Car Packer Name Role Phone Radha Jamison DO Primary Care Provider DelAbdias hardy PharmD Unavailable Unavail able Nelia Sullivan PharmD Unavailable [phone] Reason for Visit * Reason Comments Med Refill Encounter Details Date Type Department Care Team ([facility] Contact Info) Description 01/31/2022 Refill [facility] [address] [place] [address] Radha Jamison DO [address] [place] [address] Chronic bilateral low back pain, unspecified whether [...] Department Care Team (Late Contact Info) Description 10/18/2024 10:00 AM EDT Medication Management [facility] MEDICINE [address] [place] [address] Puia, Nelia, PharmD [address] [place] [address] documented as of this encounter Visit Diagnoses Diagnosis Chronic bilateral low back pain, unspecified whether sciatica present documented in this encounter Care Teams Car Packer Relationship Specialty Start Date End Date Radha Jamison DO [address] [place] [address] PCP - General Family Medicine 01/26/12 Abdias Murillo PharmD [address] [place] [address] Pharmacist Internal Medicine 03/21/22 08/30/23 Nelia Sullivan PharmD [address] [place] [address] Pharmacist Internal Medicine 08/31/23 Laurel Monterroso Reticle PrinterAir Traffic Control Equipment Repairer 10/27/22 Saige Aguilar 09/26/23 documented as of this encounter
--- OUTSIDE RECORDS SUMMARY | 2024-10-15 03:06 | XMS_ITS | Encounter Summary ---
Author Organization [employer] Address [address] [facility] 7t [place] [address] Care Team Providers Care Supervisor Bottle House Cleaners Name Role Phone Radha Jamison DO Primary Care Provider Abdias Murillo PharmD Unavailable Unavail able Nelia Sullivan PharmD Unavailable [phone] Reason for Visit * Reason Onset Date Comments Med Refill 10/24/2022 Encounter Details Date Type Department Care Team (Late st Contact Info) Description 10/24/2022 Telephone [facility] [address] [place] [address] Radha Jamison DO [address] [place], [place] [phone] Med Refill Social History Tobacco Use Types [...] 10:00 AM EDT Medication Management [facility] [address] [place], [place] [phone] Nelia Sullivan PharmD [address] [place] [address] documented as of this encounter Goals Goal [...] as of this encounter Care Teams Supervisor Bottle House Cleaners Relationship Specialty Start Date End Date Radha Jamison DO [address] [place] [address] PCP - General Family Medicine 01/26/12 Abdias Murillo, PharmD [address] [place] [address] Pharmacist Internal Medicine 03/21/22 08/30/23 Nelia Sullivan PharmD [address] [place] [address] Pharmacist Internal Medicine 08/31/23 Laurel Monterroso Management TechnicianEngineering Program Analyst 10/27/22 Saige Aguilar 09/26/23 documented as of this encounter
--- OUTSIDE RECORDS SUMMARY | 2024-10-15 03:06 | XMS_ITS | Encounter Summary ---
Author Organization [employer] Address [address] [facility] 7t [place] [address] Care Team Providers Care Dental Equipment Mechanic Name Role Phone Radha Jamison DO Primary Care Provider [phone]- [phone] Nelia Sullivan PharmD Unavailable [phone] Reason for Visit * Reason Comments Med Refill Encounter Details Date Type Department Care Team ([facility] st Contact Info) Description 11/21/2023 Refill [facility] [address] [place], [place] [phone] Radha Jamison DO [address] [place] [address] Chronic bilateral low back pain, unspecified whether [...] Description 10/18/2024 10:00 AM EDT Medication Management [facility] [address] [place] [address] Nelia Sullivan, PharmD [address] [place] [address] documented as of this encounter Goals Goal [...] blood sugar as directed Result Component No Laurie Nelia, PharmD Note: Use CGM, ensuring sensor [...] documented as of this encounter Care Teams Dental Equipment Mechanic Relationship Specialty Start Date End Date Radha Jamison DO [address] [place], [place] [phone] PCP - General Family Medicine 01/26/12 Nelia Sullivan PharmD [address] [place] [address] Pharmacist Internal Medicine 08/31/23 Laurel Monterroso Ground Host/HostessService Desk Analyst 10/27/22 Saige Aguilar 09/26/23 documented as of this encounter
--- OUTSIDE RECORDS SUMMARY | 2024-10-15 03:06 | XMS_ITS | Encounter Summary ---
Author Organization [employer] Address [address] [facility] 7t [place] [address] Care Team Providers Care Tc Operator Name Role Phone Radha Jamison DO Primary Care Provider [phone]- [phone] Abdias Murillo PharmD Unavailable Unavail able Nelia Sullivan PharmD Unavailable [phone] Reason for Visit * Reason Comments Med Refill Encounter Details Date Type Department Care Team (Late st Contact Info) Description 08/01/2023 Refill [facility] [address] [place] [address] Radha Jamison DO 230 [place] [address] Chronic bilateral low back pain, unspecified whether [...] Description 10/18/2024 10:00 AM EDT Medication Management [facility] [address] [place] [address] Nelia Sullivan PharmD [address] [place] [phone] documented as of this encounter Goals Goal Patient Goal Type Associated Problems Recent Progress Patient-Stated? Author Hemoglobin A1c < 7 Result Component 10.1( 5 4:57 PM EDT) No Abdias Murillo, PharmD documented as of this encounter Visit Diagnoses Diagnosis Chronic bilateral low back pain, unspecified whether sciatica present documented in this encounter Additional Health Concerns Assessment Noted Time PHQ-9 Depression Total Score: 4 11/09/19 23 11:27 AM EDT documented as of this encounter Care Teams Tc Operator Relationship Specialty Start Date End Date Radha Jamison DO [address] [place] [address] PCP - General Family Medicine 01/26/12 Abdias Murillo, PharmD [address] [place] [address] Pharmacist Internal Medicine 03/21/22 08/30/23 Nelia Sullivan, PharmD [address] [place] [address] MARA Mims [address] Pharmacist Internal Medicine 08/31/23 Laurel Monterroso Wire TinnerAudiometrist 10/27/22 Saige Aguilar 09/26/23 documented as of this encounter
--- OUTSIDE RECORDS SUMMARY | 2024-10-15 03:06 | XMS_ITS | Encounter Summary ---
Author Organization [employer] Address [address] [facility] 7t [place] [address] Care Team Providers Care Neck Band Operator Name Role Phone Radha Jamison DO Primary Care Provider [phone]- [phone] Abdias Murillo PharmD Unavailable Unavail able Nelia Sullivan PharmD Unavailable [phone] Reason for Visit * Reason Onset Date Comments Med Refill 10/18/2022 Encounter Details Date Type Department Care Team (Late st Contact Info) Description 10/18/2022 Telephone [facility] [address] [place] [address] Radha Jamison DO [address] [place], [place] [phone] Med Refill Social History Tobacco Use Types [...] PCP needed re:controlled medication. Pt's hx with [facility] appts is as follows: 05/05: Pt short [...] team nurses. Any questions, contact pt at [phone] ([place]) * Telephone Encounter - Acacia Chakraborty RN [...] Description 10/18/2024 10:00 AM EDT Medication Management [facility] [address] [place] [address] Nelia Sullivan PharmD [address] [place] [address] documented as of this encounter Goals Goal Patient Goal Type Associated Problems Recent Progress Patient-Stated? Author Hemoglobin A1c < 7 Result Component 10.1( 5 4:57 PM EDT) No Abdias Murillo, Camron documented as of this encounter Visit Diagnoses Not on filedocumented in this encounter Additional Health Concerns Assessment Noted Time PHQ-9 Depression Total Score: 14 023 12:00 PM EST documented as of this encounter Care Teams Neck Band Operator Relationship Specialty Start Date End Date Radha Jamison DO [address] [place] [address] PCP - General Family Medicine 01/26/12 Abdias Murillo, PharmD [address] [place] [address] Pharmacist Internal Medicine 03/21/22 08/30/23 Neila Sullivan, KeithD [address] [place] [address] Pharmacist Internal Medicine 08/31/23 Laurel Monterroso Directional DrillerEvaluation Manager 10/27/22 Saige Aguilar 09/26/23 documented as of this encounter
--- OUTSIDE RECORDS SUMMARY | 2024-10-15 03:06 | XMS_ITS | Encounter Summary ---
Author Organization [employer] Address [address] [facility] 7t [place] [address] Care Team Providers Care Enterprise Records Analyst Name Role Phone Radha Jamison DO Primary Care Provider [phone]- [phone] Nelia Sullivan PharmD Unavailable [phone] Reason for Visit * Reason Comments Med Refill Encounter Details Date Type Department Care Team ([facility] st Contact Info) Description 10/30/2023 Refill [facility] [address] [place], [place] [phone] Radha Jamison DO [address] [place] [address] Chronic bilateral low back pain, unspecified whether [...] Description 10/18/2024 10:00 AM EDT Medication Management [facility] [address] [place] [address] Nelia Sullivan, PharmD [address] [place] [address] documented as of this encounter Goals Goal [...] documented as of this encounter Care Teams Enterprise Records Analyst Relationship Specialty Start Date End Date Radha Jamison DO [address] [place], [place] [phone] PCP - General Family Medicine 01/26/12 Nelia Sullivan PharmD [address] [place] [address] Pharmacist Internal Medicine 08/31/23 Laurel Monterroso Supervisor Body AssemblyWarp Yarn Sorter 10/27/22 Saige Aguilar 09/26/23 documented as of this encounter
--- OUTSIDE RECORDS SUMMARY | 2024-10-15 03:06 | XMS_ITS | Encounter Summary ---
Author Organization [employer] Address [address] [facility] 7t [place] [address] Care Team Providers Care Is Technician Name Role Phone Radha Jamison DO Primary Care Provider [phone]- [phone] Abdias Murillo PharmD Unavailable Unavail able Nelia Sullivan PharmD Unavailable [phone] Reason for Visit * Reason Comments Med Refill Encounter Details Date Type Department Care Team (Late st Contact Info) Description 11/08/2022 Refill [facility] [address] [place] [address] Radha Jamison DO [address] [place] [address] Social History Tobacco Use Types Packs/Day Years [...] AM EDT documented as of this encounter Functional Status * Over the past 2 weeks, how often have you been bothered by any of the following problems? Question Answer Date of Assessment Author Patient Health Questionnaire-2 Score 2 11/08/2022 11:27 AM EDT Lucinda Alexandra MA * If you checked off any problems on this questionnaire so far, Question Answer Date of Assessment Author How difficult have these problems made it for you to do your work, take care of things at home, or get along with other people? Somewhat difficult 11/08/2022 11:27 AM Lucinda Escamilla MA * Over the past 2 weeks, how often have you been bothered by any of the following problems? Question Answer Date of Assessment Author Little interest or pleasure in doing things Several days 11/08/2022 11:27 AM Lucinda Escamilla MA Feeling down, depressed, or hopeless Several days 11/08/2022 11:27 AM Lucinda Escamilla MA Trouble falling or staying asleep, or sleeping too much Not at all 11/08/2022 11:27 AM Lucinda Marie MA Feeling tired or having little energy Several days 11/08/2022 11:27 AM Lucinda Escamilla MA Poor appetite or overeating Several days 11/08/2022 11 :27 AM Lucinda Glynn MA Feeling bad about yourself - or that you are a failure or have let yourself or your family down Not at all 11/08/2022 11:27 AM Lucinda Escamilla MA Trouble concentrating on things, such as reading the newspaper or watching television Not at all 11/08/2022 11:27 AM Lucinda Escamilla MA Moving or speaking so slowly that other people could have noticed? Or the opposite - being so fidgety or restless that you have been moving around a lot more than usual. Not at all 11/08/2022 11:27 AM Lucinda Escamilla MA Thoughts that you would be better off or hurting yourself in some way Not at all 11/08/2022 11:27 AM Lucinda Escamilla MA Patient Health Questionnaire-9 Score 4 11/08/2022 11:27 AM Lucinda Colvin MA documented as of this encounter Miscellaneous Notes * Telephone Encounter - Radha Jamison DO - 11/09/2022 3:11 PM EDT Smaller pen needles sent. documented in this encounter Plan of Treatment Upcoming Encounters Date Type Department Care Team (Late st Contact Info) Description 10/18/2024 10:00 AM EDT Medication Management [facility] [address] [place] [address] Nelia Sullivan PharmD [address] [place] [address] documented as of this encounter Goals Goal [...] documented as of this encounter Care Teams Is Technician Relationship Specialty Start Date End Date Radha Jamison DO [address] [place] [address] PCP - General Family Medicine 01/26/12 Abdias Murillo, PharmD [address] [place] [address] Pharmacist Internal Medicine 03/21/22 08/30/23 Nelia Sullivan, PharmD [address] [place] [address] Pharmacist Internal Medicine 08/31/23 Laurel Monterroso Ultrasonic Welding Machine OperatorMental Health Clinician 10/27/22 Saige Aguilar 09/26/23 documented as of this encounter
--- OUTSIDE RECORDS SUMMARY | 2024-10-15 03:06 | XMS_ITS | Encounter Summary ---
Author Organization [employer] Address [address] [facility] 7t [place] [address] Care Team Providers Care Care Professional Name Role Phone Radha Jamison DO Primary Care Provider [phone]- [phone] Abdias Murillo PharmD Unavailable Unavail able Nelia Sullivan PharmD Unavailable [phone] Reason for Visit * Reason Comments Med Refill Encounter Details Date Type Department Care Team (Late st Contact Info) Description 03/14/2023 Refill [facility] [address] [place] [address] Radha Jamison DO [address] [place] [address] Chronic bilateral low back pain, unspecified whether [...] 10:00 AM EDT Medication Management [facility] [address] [place] [address] Nelia Sullivan PharmD [address] [place] [address] documented as of this encounter Goals Goal [...] documented as of this encounter Care Teams Care Professional Relationship Specialty Start Date End Date Radha Jamison DO [address] [place] [address] PCP - General Family Medicine 01/26/12 Abdias Murillo PharmD [address] [place] [address] Pharmacist Internal Medicine 03/21/22 08/30/23 Nelia Sullivan PharmD [address] [place] [address] Pharmacist Internal Medicine 08/31/23 Laurel Monterroso Aviation Project EngineerBooth Cashier 10/27/22 Saige Aguilar 09/26/23 documented as of this encounter
--- OUTSIDE RECORDS SUMMARY | 2024-10-15 03:06 | XMS_ITS | Encounter Summary ---
Author Organization [employer] Address [address] [place] [address] Care Team Providers Care Department Director Name Role Phone Radha Jamison DO Primary Care Provider Dellogyadiel Abdias PharmD Unavailable Unavail able PuNelia cortes PharmD Unavailable Encounter Details Date Type Department Care Team (Late st Contact Info) Description 02/03/2022 Orders Only [facility] MEDICINE [address] [place] [address] Radha Jamison DO [address] [place] [address] Social History Tobacco Use Types Packs/Day Years [...] 10/18/2024 10:00 AM EDT Medication Management [facility] MEDICINE [address] [place] [address] Puia, Nelia, PharmD [address] [place] [address] documented as of this encounter Procedures Procedure [...] by Modified Westergren (04/24/2022 4:19 PM EDT) [facility] Erythrocyte Sedimentation Rate 23(H) 0 - 20 MM/HR [facility] Comment:Patients with polycy themia and many hemoglobin abnormalitiesmay have depressed sed rates whereas patients with anemiamay have elevated sed rates. 04/24/2022 4:19 PM EDT 04/24/2022 4:27 PM EDT us [facility] External Provider LAB BLO OD ORDERABLES Final Result [facility] [address] [place] [phone] * C-reactive Protein (04/24/2022 4:19 PM EDT) [facility] C Reactive Protein 0.28 < or = 0.50 mg/dL [facility] 04/24/2022 4:19 PM EDT 04/24/2022 4:22 PM EDT [facility] External Provider LAB BLO OD ORDERABLES Final Result Performing Organization Address [facility]/ZIP Co de Phone Number [facility] [address] [place] [address] [phone] * Magnesium (04/24/2022 4:19 PM EDT) [facility] Magnesium 1.7 1.6 - 2.6 mg/dL [facility] 04/24/2022 4:19 PM EDT 04/24/2022 4:22 PM EDT [facility] External Provider LAB BLO OD ORDERABLES Final Result Performing Organization Address City/[facility] Co de Phone Number [facility] [address] [place] [address] [phone] * (ABNORMAL) Basic Metabolic Panel (04/24/2022 4:19 PM EDT) [facility] Sodium 135 135 - 145 mmol/L [facility] Potassium 4.7 3.3 - 5.1 mmol/L [facility] Chloride 100 96 - 108 mmol/L [facility] Carbon Dioxide 27 22 - 29 mmol/L [facility] Anion Gap 13 12 - 20 [facility] Urea Nitrogen (BUN) 20(H) 9 - 16 mg/dL [facility] Creatinine, Serum 1.01 0.5 - 1.4 mg/dL [facility] Creatinine Clr Calc Pharmacy 48.8 [facility] Comment:Provided height and weight: 152.4 cm,62.4 kg.eGFR (calculated from the MDRD study equation) and eCrCl(calculated from the Cockcroft-Gault equation) are based ondifferent parameters and may not yield comparable results.If eCrCl result is absurd, please check patient'sheight/weight. Estimated Glomerular Filt Rate 56 [facility] Comment:NOTE: For -Am erican individuals, multiply the result by 1.210.Chronic Kidney Disease: Estimated GFR < 60 mL/min/[id number] Kidney Disease: Estimated GFR < 15 mL/min/1.73m2 Glucose 269(H) 60 - 115 mg/dL [facility] Calcium 9.2 8.4 - 10.2 mg/dL [facility] 04/24/2022 4:19 PM EDT 04/24/2022 4:22 PM EDT [facility] External Provider LAB BLO OD ORDERABLES Final Result Performing Organization Address [facility] Co de Phone Number [facility] [address] [place] [phone] * Hepatic Function Panel (04/24/2022 4:19 PM EDT) Bilirubin, Total 0.6 0.0 - 1.0 mg/dL [facility] Bilirubin, Direct <0.2 0.0 - 0.5 mg/dL [facility] Aspartate Amino Transferase 11 5 - 31 U/L [facility] Alanine Aminotransferase 6 0 - 31 U/L [facility] Total Protein 6.5 6.5 - 8.0 g/dL [facility] Albumin Level 4.0 3.5 - 5.0 g/dL [facility] Alkaline Phosphatase 80 39 - 117 U/L [facility] 04/24/2022 4:19 PM EDT 04/24/2022 4:22 PM EDT [facility] External Provider LAB BLO OD ORDERABLES Final Result Performing Organization Address [facility] Co de Phone Number [facility] [address] [place] [address] [phone] * (ABNORMAL) CBC auto differential (04/24/2022 4:19 PM EDT) White Blood Count 7.3 4.8 - 10.8 X10*3/uL [facility] Red Blood Count 4.14(L) 4.20 - 5.50 X10*6/uL [facility] Hemoglobin 12.1 12.0 - 16.0 g/dl [facility] Hematocrit 36.6(L) 37.0 - 47.0 % [facility] Mean Corpuscular Volume 88.4 80.0 - 98.0 fL [facility] Mean Corpuscular Hemoglobin 29.2 27.0 - 33.0 pg [facility] Mean Corpuscular HGB Conc 33.1 31.0 - 35.0 g/dl [facility] Red Cell Distribution Width 13.4 11.0 - 16.0 % [facility] Platelet Count 333 160 - 400 X10*3/uL [facility] Mean Platelet Volume 8.9(L) 9.4 - 12.3 fL [facility] Neutrophils Percent Auto 62.4 45 - 73 % [facility] Imm Gran Pct Auto 0.3 0.0 - 0.4 % [facility] Lymphocytes Percent Auto 28.8 20 - 40 % [facility] Monocytes Percent Auto 5.3 2 - 11 % [facility] Eosinophils Percent Auto 2.7 0 - 4 % [facility] Basophils Percent Auto 0.5 0 - 2 % [facility] NRBC Pct Auto 0.0 0.0 - 0.2 /100WBC [facility] Neutrophils Absolute Auto 4.6 2.0 - 8.3 x10*3/uL [facility] Imm Gran Abs Auto 0.02 0.00 - 0.03 X10*3/uL [facility] Lymphocytes Absolute Auto 2.1 1.2 - 4.9 X10*3/uL [facility] Monocytes Absolute Auto 0.4 0.1 - 1.2 X10*3/uL [facility] Eosinophils Absolute Auto 0.2 0.0 - 0.4 X10*3/uL [facility] Basophils Absolute Auto 0.0 0.0 - 0.2 X10*3/uL [facility] NRBC Abs Auto 0.000 0.0 - 0.012 X10*3/uL [facility] 04/24/2022 4:19 PM EDT 04/24/2022 4:22 PM EDT [facility] External Provider LAB BLO OD ORDERABLES Final Result [facility] [address] [place] [phone] * (ABNORMAL) Urinalysis, Complete, with Reflex to Culture (04/17/2022 10:53 AM EST) Color Urine Yellow [facility] Appearance Urine Clear [facility] PH 7.5 5.0 - 9.0 [facility] Glucose Urine UA 100(A) Negative mg/dL [facility] Urine Blood Negative Negative [facility] Specific [place] - Urine >=1.030(H) 1.005 - 1.025 [facility] Urine Protein 100 (2+)(A) Neg-Trace mg/dL [facility] Urine Ketones Negative Negative mg/dL [facility] Nitrite Urine Negative Negative [facility] Leukocyte Esterase Urine Negative Negative [facility] RBC Urine 3-5(A) 0 - 2 /HPF [facility] Urine WBC 0-5 0 - 5 /HPF [facility] Urine Squamous Epithelial Cell 3-5 0 - 2 /HPF [facility] Urine Bacteria None Seen None Seen [facility] Hyaline Casts, Urine 0-2 0 - 2 /LPF [facility] 04/17/2022 10:5 3 AM EST 04/17/2022 10:56 AM EST Narrative [facility] - 04/17/2022 11:06 AM EST Urine, Clean Catch [facility] External Provider LAB URI NE ORDERABLES Final Result Performing Organization Address [facility] Co de Phone Number [facility] [address] [place] [address] [phone] * (ABNORMAL) Sed Rate by Modified Liloren (04/17/2022 8:21 AM EST) Erythrocyte Sedimentation Rate 23(H) 0 - 20 MM/HR [facility] Comment:Patients with polycy themia and many hemoglobin abnormalitiesmay have depressed sed rates whereas patients with anemiamay have elevated sed rates. 04/17/2022 8:21 AM EST 04/17/2022 8:41 AM EST [facility] External Provider LAB BLO OD ORDERABLES Final Result Performing Organization Address [facility] Co de Phone Number [facility] [address] [place] [address] [phone] * Lipase (04/17/2022 8:21 AM EST) Lipase 10 8 - 78 U/L [facility] 04/17/2022 8:21 AM EST 04/17/2022 8:24 AM EST [facility] External Provider LAB BLO OD ORDERABLES Final Result Performing Organization Address [facility] Co de Phone Number [facility] [address] [place] [phone] * C-reactive Protein (04/17/2022 8:21 AM EST) C Reactive Protein 0.23 < or = 0.50 mg/dL [facility] 04/17/2022 8:21 AM EST 04/17/2022 8:24 AM EST [facility] External Provider LAB BLO OD ORDERABLES Final Result Performing Organization Address [facility] Co de Phone Number [facility] [address] [place] [address] [phone] * Magnesium (04/17/2022 8:21 AM EST) Pathologist [facility] Magnesium 1.6 1.6 - 2.6 mg/dL [facility] 04/17/2022 8:21 AM EST 04/17/2022 8:24 AM EST [facility] External Provider LAB BLO OD ORDERABLES Final Result Performing Organization Address [facility]/ZIP Co de Phone Number [facility] [address] [place] [phone] * (ABNORMAL) Hepatic Function Panel (04/17/2022 8:21 AM EST) [facility] Bilirubin, Total 0.7 0.0 - 1.0 mg/dL [facility] Bilirubin, Direct <0.2 0.0 - 0.5 mg/dL [facility] Aspartate Amino Transferase 10 5 - 31 U/L [facility] Alanine Aminotransferase 7 0 - 31 U/L [facility] Total Protein 6.2(L) 6.5 - 8.0 g/dL [facility] Albumin Level 3.8 3.5 - 5.0 g/dL [facility] Alkaline Phosphatase 71 39 - 117 U/L [facility] 04/17/2022 8:21 AM EST 04/17/2022 8:24 AM EST [facility] External Provider LAB BLO OD ORDERABLES Final Result Performing Organization Address City/[facility]/ZIP Co de Phone Number [facility] [address] [place] [phone] * (ABNORMAL) Basic Metabolic Panel (04/17/2022 8:21 AM EST) Pathologist [facility] Sodium 138 135 - 145 mmol/L [facility] Potassium 4.9 3.3 - 5.1 mmol/L [facility] Chloride 104 96 - 108 mmol/L [facility] Carbon Dioxide 26 22 - 29 mmol/L [facility] Anion Gap 13 12 - 20 [facility] Urea Nitrogen (BUN) 17(H) 9 - 16 mg/dL [facility] Creatinine, Serum 0.79 0.5 - 1.4 mg/dL [facility] Creatinine Clr Calc Pharmacy 66.3 [facility] Comment:Provided height and weight: 157.48 cm,63.503 kg.eGFR (calculated from the MDRD study equation) and eCrCl(calculated from the Cockcroft-Gault equation) are based ondifferent parameters and may not yield comparable results.If eCrCl result is absurd, please check patient'sheight/weight. Estimated Glomerular Filt Rate >60 [facility] Comment:NOTE: For -Am erican individuals, multiply the result by 1.210.Chronic Kidney Disease: Estimated GFR < 60 mL/min/[id number] Kidney Disease: Estimated GFR < 15 mL/min/1.73m2 Glucose 272(H) 60 - 115 mg/dL [facility] Calcium 9.1 8.4 - 10.2 mg/dL [facility] 04/17/2022 8:21 AM EST 04/17/2022 8:24 AM EST us [facility] External Provider LAB BLO OD ORDERABLES Final Result [facility] [address] [place] [phone] * (ABNORMAL) CBC auto differential (04/17/2022 8:21 AM EST) White Blood Count 5.7 4.8 - 10.8 X10*3/uL [facility] Red Blood Count 4.01(L) 4.20 - 5.50 X10*6/uL [facility] Hemoglobin 11.7(L) 12.0 - 16.0 g/dl [facility] Hematocrit 35.9(L) 37.0 - 47.0 % [facility] Mean Corpuscular Volume 89.5 80.0 - 98.0 fL [facility] Mean Corpuscular Hemoglobin 29.2 27.0 - 33.0 pg [facility] Mean Corpuscular HGB Conc 32.6 31.0 - 35.0 g/dl [facility] Red Cell Distribution Width 13.4 11.0 - 16.0 % [facility] Platelet Count 309 160 - 400 X10*3/uL [facility] Mean Platelet Volume 9.3(L) 9.4 - 12.3 fL [facility] Neutrophils Percent Auto 60.9 45 - 73 % [facility] Imm Gran Pct Auto 0.4 0.0 - 0.4 % [facility] Lymphocytes Percent Auto 27.3 20 - 40 % [facility] Monocytes Percent Auto 6.3 2 - 11 % [facility] Eosinophils Percent Auto 4.4(H) 0 - 4 % [facility] Basophils Percent Auto 0.7 0 - 2 % [facility] NRBC Pct Auto 0.0 0.0 - 0.2 /100WBC [facility] Neutrophils Absolute Auto 3.5 2.0 - 8.3 x10*3/uL [facility] Imm Gran Abs Auto 0.02 0.00 - 0.03 X10*3/uL [facility] Lymphocytes Absolute Auto 1.6 1.2 - 4.9 X10*3/uL [facility] Monocytes Absolute Auto 0.4 0.1 - 1.2 X10*3/uL [facility] Eosinophils Absolute Auto 0.3 0.0 - 0.4 X10*3/uL [facility] Basophils Absolute Auto 0.0 0.0 - 0.2 X10*3/uL [facility] NRBC Abs Auto 0.000 0.0 - 0.012 X10*3/uL [facility] 04/17/2022 8:21 AM EST 04/17/2022 8:24 AM EST us [facility] External Provider LAB BLO OD ORDERABLES Final Result Performing Organization Address [facility]/ZIP Co de Phone Number [facility] [address] [place] [phone] * Creatinine, Serum (04/13/2022 7:33 AM EST) Creatinine, Serum 0.75 0.5 - 1.4 mg/dL [facility] Creatinine Clr Calc Pharmacy 70.3 [facility] Comment:Provided height and weight: 157.48 cm,64.41 kg.eGFR (calculated from the MDRD study equation) and eCrCl(calculated from the Cockcroft-Gault equation) are based ondifferent parameters and may not yield comparable results.If eCrCl result is absurd, please check patient'sheight/weight. Estimated Glomerular Filt Rate >60 [facility] Comment:NOTE: For -Am erican individuals, multiply the result by 1.210.Chronic Kidney Disease: Estimated GFR < 60 mL/min/1.24s2Aopzje Kidney Disease: Estimated GFR < 15 mL/min/1.73m2 04/13/2022 7:33 AM EST 04/13/2022 7:38 AM EST [facility] External Provider LAB BLO OD ORDERABLES Final Result Performing Organization Address [facility] Co de Phone Number [facility] [address] [place] [address] [phone] * BUN (Blood Urea Nitrogen) (04/13/2022 7:33 AM EST) Urea Nitrogen (BUN) 12 9 - 16 mg/dL [facility] 04/13/2022 7:33 AM EST 04/13/2022 7:38 AM EST [facility] External Provider LAB BLO OD ORDERABLES Final Result Performing Organization Address [facility] Co de Phone Number [facility] [address] [place] [address] [phone] * (ABNORMAL) CBC auto differential (04/13/2022 7:33 AM EST) White Blood Count 6.6 4.8 - 10.8 X10*3/uL [facility] Red Blood Count 4.12(L) 4.20 - 5.50 X10*6/uL [facility] Hemoglobin 12.1 12.0 - 16.0 g/dl [facility] Hematocrit 36.6(L) 37.0 - 47.0 % [facility] Mean Corpuscular Volume 88.8 80.0 - 98.0 fL [facility] Mean Corpuscular Hemoglobin 29.4 27.0 - 33.0 pg [facility] Mean Corpuscular HGB Conc 33.1 31.0 - 35.0 g/dl [facility] Red Cell Distribution Width 13.6 11.0 - 16.0 % [facility] Platelet Count 291 160 - 400 X10*3/uL [facility] Mean Platelet Volume 9.0(L) 9.4 - 12.3 fL [facility] Neutrophils Percent Auto 55.5 45 - 73 % [facility] Imm Gran Pct Auto 0.2 0.0 - 0.4 % [facility] Lymphocytes Percent Auto 33.7 20 - 40 % [facility] Monocytes Percent Auto 6.5 2 - 11 % [facility] Eosinophils Percent Auto 3.6 0 - 4 % [facility] Basophils Percent Auto 0.5 0 - 2 % [facility] NRBC Pct Auto 0.0 0.0 - 0.2 /100WBC [facility] Neutrophils Absolute Auto 3.7 2.0 - 8.3 x10*3/uL [facility] Imm Gran Abs Auto 0.01 0.00 - 0.03 X10*3/uL [facility] Lymphocytes Absolute Auto 2.2 1.2 - 4.9 X10*3/uL [facility] Monocytes Absolute Auto 0.4 0.1 - 1.2 X10*3/uL [facility] Eosinophils Absolute Auto 0.2 0.0 - 0.4 X10*3/uL [facility] Basophils Absolute Auto 0.0 0.0 - 0.2 X10*3/uL [facility] NRBC Abs Auto 0.000 0.0 - 0.012 X10*3/uL [facility] 04/13/2022 7:33 AM EST 04/13/2022 7:38 AM EST [facility] External Provider LAB BLO OD ORDERABLES Final Result Performing Organization Address [facility] Phone Number [facility] [address] [place] [phone] * (ABNORMAL) GLUCOSE, WHOLE BLOOD (04/13/2022 7:27 AM EST) Glucose, Whole Blood 197(H) 60 - 115 mg/dL [facility] Comment:METER #: [id number] 04/13/2022 7:27 AM EST 04/13/2022 7:31 AM EST [facility] External Provider LAB BLO OD ORDERABLES Final Result Performing Organization Address [facility] Number [facility] [address] [place] [phone] * HIGH SENSITIVITY TROPONIN I (04/03/2022 8:36 PM EST) TROPONIN I HIGH SENSITIVITY 6.0 <3.5 - 17.0 ng/L [facility] Comment:The Ibrahim high sens itivity Troponin-I results should beused in conjunction with other diagnostic information suchas ECG, clinical observations and information, and patientsymptoms to aid in the diagnosis of OR. 04/03/2022 8:36 PM EST 04/03/2022 8:38 PM EST [facility] External Provider LAB BLO OD ORDERABLES Final Result Performing Organization Address [facility] Number [facility] [address] [place] [phone] * Lipase (04/03/2022 8:36 PM EST) Lipase 10 8 - 78 U/L [facility] 04/03/2022 8:36 PM EST 04/03/2022 8:38 PM EST us [facility] External Provider LAB BLO OD ORDERABLES Final Result [facility] [address] [place] [phone] * (ABNORMAL) Basic Metabolic Panel (04/03/2022 8:36 PM EST) Sodium 138 135 - 145 mmol/L [facility] Potassium 3.9 3.3 - 5.1 mmol/L [facility] Chloride 104 96 - 108 mmol/L [facility] Carbon Dioxide 27 22 - 29 mmol/L [facility] Anion Gap 11(L) 12 - 20 [facility] Urea Nitrogen (BUN) 11 9 - 16 mg/dL [facility] Creatinine, Serum 0.74 0.5 - 1.4 mg/dL [facility] Creatinine Clr Calc Pharmacy 70.7 [facility] Comment:Provided height and weight: 157.48 cm,63.503 kg.eGFR (calculated from the MDRD study equation) and eCrCl(calculated from the Cockcroft-Gault equation) are based ondifferent parameters and may not yield comparable results.If eCrCl result is absurd, please check patient'sheight/weight. Estimated Glomerular Filt Rate >60 [facility] Comment:NOTE: For -Am erican individuals, multiply the result by 1.210.Chronic Kidney Disease: Estimated GFR < 60 mL/min/1.35a4Ybhung Kidney Disease: Estimated GFR < 15 mL/min/1.73m2 Glucose 246(H) 60 - 115 mg/dL [facility] Calcium 9.0 8.4 - 10.2 mg/dL [facility] 04/03/2022 8:36 PM EST 04/03/2022 8:38 PM EST [facility] External Provider LAB BLO OD ORDERABLES Final Result Performing Organization Address [facility] Co de Phone Number [facility] [address] [place] [address] [phone] * (ABNORMAL) Hepatic Function Panel (04/03/2022 8:36 PM EST) Bilirubin, Total 0.6 0.0 - 1.0 mg/dL [facility] Bilirubin, Direct 0.2 0.0 - 0.5 mg/dL [facility] Aspartate Amino Transferase 10 5 - 31 U/L [facility] Alanine Aminotransferase 8 0 - 31 U/L [facility] Total Protein 5.8(L) 6.5 - 8.0 g/dL [facility] Albumin Level 3.7 3.5 - 5.0 g/dL [facility] Alkaline Phosphatase 76 39 - 117 U/L [facility] 04/03/2022 8:36 PM EST 04/03/2022 8:38 PM EST [facility] External Provider LAB BLO OD ORDERABLES Final Result Performing Organization Address [facility] de Phone Number [facility] [address] [place] [address] [phone] * (ABNORMAL) CBC auto differential (04/03/2022 8:36 PM EST) White Blood Count 6.0 4.8 - 10.8 X10*3/uL [facility] Red Blood Count 4.10(L) 4.20 - 5.50 X10*6/uL [facility] Hemoglobin 12.0 12.0 - 16.0 g/dl [facility] Hematocrit 35.6(L) 37.0 - 47.0 % [facility] Mean Corpuscular Volume 86.8 80.0 - 98.0 fL [facility] Mean Corpuscular Hemoglobin 29.3 27.0 - 33.0 pg [facility] Mean Corpuscular HGB Conc 33.7 31.0 - 35.0 g/dl [facility] Red Cell Distribution Width 13.3 11.0 - 16.0 % [facility] Platelet Count 276 160 - 400 X10*3/uL [facility] Mean Platelet Volume 9.2(L) 9.4 - 12.3 fL [facility] Neutrophils Percent Auto 58.2 45 - 73 % [facility] Imm Gran Pct Auto 0.2 0.0 - 0.4 % [facility] LABS Lymphocytes Percent Auto 32.9 20 - 40 % [facility] Monocytes Percent Auto 6.0 2 - 11 % [facility] Eosinophils Percent Auto 2.2 0 - 4 % [facility] Basophils Percent Auto 0.5 0 - 2 % [facility] NRBC Pct Auto 0.0 0.0 - 0.2 /100WBC [facility] Neutrophils Absolute Auto 3.5 2.0 - 8.3 x10*3/uL [facility] Imm Gran Abs Auto 0.01 0.00 - 0.03 X10*3/uL [facility] Lymphocytes Absolute Auto 2.0 1.2 - 4.9 X10*3/uL [facility] Monocytes Absolute Auto 0.4 0.1 - 1.2 X10*3/uL [facility] Eosinophils Absolute Auto 0.1 0.0 - 0.4 X10*3/uL [facility] Basophils Absolute Auto 0.0 0.0 - 0.2 X10*3/uL [facility] NRBC Abs Auto 0.000 0.0 - 0.012 X10*3/uL [facility] 04/03/2022 8:36 PM EST 04/03/2022 8:38 PM EST us [facility] External Provider LAB BLO OD ORDERABLES Final Result Performing Organization Address City/State/[facility] Co de Phone Number [facility] [address] [place] [address] [phone] * (ABNORMAL) GLUCOSE, WHOLE BLOOD (04/03/2022 7:56 PM EST) [facility] Glucose, Whole Blood 227(H) 60 - 115 mg/dL [facility] Comment:METER #: [id number] 6 04/03/2022 7:56 PM EST 04/03/2022 8:01 PM EST [facility] External Provider LAB BLO OD ORDERABLES Final Result Performing Organization Address [facility] de Phone Number [facility] [address] [place] [phone] * (ABNORMAL) B Type Natriuretic Peptide (BNP) (03/09/2022 5:39 PM EST) [facility] B Type Natriuretic Peptide 125(H) <100 pg/mL [facility] Comment:For those patients w ho are being treated with Natrecor(nesiritide, recombinant BNP), BNP testing should beperformed at least two hours post treatment in order toensure that only endogenous levels of BNP are detected. 03/09/2022 5:39 PM EST 03/09/2022 6:48 PM EST [facility] External Provider LAB BLO OD ORDERABLES Final Result Performing Organization Address [facility] Co de Phone Number [facility] [address] [place] [address] [phone] * SARS-CoV-2 RNA, Influenza A/B, and RSV RNA, Ql NAAT (03/09/2022 5:39 PM EST) [facility] Influenza A PCR NEGATIVE Negative [facility] Influenza B PCR NEGATIVE Negative [facility] Resp Syncy Virus RNA Qual PCR NEGATIVE Negative [facility] SARS COV2 PCR NEGATIVE Negative [facility] SARS/Flu/RSV Note See Note [facility] Comment:All test results mus t [...] use by authorized laboratories.Testing performed on the [facility] GeneXpert utilizingreal-time RT-PCR.All SARS CoV2 and positive influenza A/B results arereported to [facility]. 03/09/2022 5:39 PM EST 03/09/2022 5:43 PM EST [facility] Exter nal Provider LAB MICROBIOLOGY - GENERAL ORDERABLES Final Result Performing Organization Address [facility]/ZIP Co de Phone Number [facility] [address] [place] [address] [phone] * HIGH SENSITIVITY TROPONIN I (03/09/2022 5:39 PM EST) [facility] TROPONIN I HIGH SENSITIVITY 5.6 <3.5 - 17.0 ng/L [facility] Comment:The Ibrahim high sens itivity Troponin-I results should beused in conjunction with other diagnostic information suchas ECG, clinical observations and information, and patientsymptoms to aid in the diagnosis of OR. 03/09/2022 5:39 PM EST 03/09/2022 5:43 PM EST [facility] External Provider LAB BLO OD ORDERABLES Final Result Performing Organization Address [facility]/ZIP Co de Phone Number [facility] [address] [place] [phone] * (ABNORMAL) Comprehensive Metabolic Panel (03/09/2022 5:39 PM EST) [facility] Sodium 139 135 - 145 mmol/L [facility] Potassium 3.9 3.3 - 5.1 mmol/L [facility] Chloride 103 96 - 108 mmol/L [facility] Carbon Dioxide 27 22 - 29 mmol/L [facility] Anion Gap 13 12 - 20 [facility] Urea Nitrogen (BUN) 18(H) 9 - 16 mg/dL [facility] Creatinine, Serum 0.95 0.5 - 1.4 mg/dL [facility] Creatinine Clr Calc Pharmacy 53.0 [facility] Comment:Provided height and weight: 152.4 cm,65.2 kg.eGFR (calculated from the MDRD study equation) and eCrCl(calculated from the Cockcroft-Gault equation) are based ondifferent parameters and may not yield comparable results.If eCrCl result is absurd, please check patient'sheight/weight. Estimated Glomerular Filt Rate >60 [facility] Comment:NOTE: For -Am erican individuals, multiply the result by 1.210.Chronic Kidney Disease: Estimated GFR < 60 mL/min/1.82v5Hawygt Kidney Disease: Estimated GFR < 15 mL/min/1.73m2 Glucose 326(H) 60 - 115 mg/dL [facility] Calcium 9.1 8.4 - 10.2 mg/dL [facility] Bilirubin, Total 0.3 0.0 - 1.0 mg/dL [facility] Aspartate Amino Transferase 8 5 - 31 U/L [facility] Alanine Aminotransferase <6 0 - 31 U/L [facility] Total Protein 5.9(L) 6.5 - 8.0 g/dL [facility] Albumin Level 3.6 3.5 - 5.0 g/dL [facility] Alkaline Phosphatase 81 39 - 117 U/L [facility] 03/09/2022 5:39 PM EST 03/09/2022 5:43 PM EST us [facility] External Provider LAB BLO OD ORDERABLES Final Result [facility] [address] [place] [address] [phone] * (ABNORMAL) CBC auto differential (03/09/2022 5:39 PM EST) White Blood Count 7.3 4.8 - 10.8 X10*3/uL [facility] Red Blood Count 4.03(L) 4.20 - 5.50 X10*6/uL [facility] Hemoglobin 11.7(L) 12.0 - 16.0 g/dl [facility] Hematocrit 35.1(L) 37.0 - 47.0 % [facility] Mean Corpuscular Volume 87.1 80.0 - 98.0 fL [facility] Mean Corpuscular Hemoglobin 29.0 27.0 - 33.0 pg [facility] Mean Corpuscular HGB Conc 33.3 31.0 - 35.0 g/dl [facility] Red Cell Distribution Width 13.4 11.0 - 16.0 % [facility] Platelet Count 296 160 - 400 X10*3/uL [facility] Mean Platelet Volume 9.3(L) 9.4 - 12.3 fL [facility] Neutrophils Percent Auto 63.9 45 - 73 % [facility] Imm Gran Pct Auto 0.1 0.0 - 0.4 % [facility] Lymphocytes Percent Auto 27.1 20 - 40 % [facility] Monocytes Percent Auto 5.9 2 - 11 % [facility] Eosinophils Percent Auto 2.6 0 - 4 % [facility] Basophils Percent Auto 0.4 0 - 2 % [facility] NRBC Pct Auto 0.0 0.0 - 0.2 /100WBC [facility] Neutrophils Absolute Auto 4.6 2.0 - 8.3 x10*3/uL [facility] Imm Gran Abs Auto 0.01 0.00 - 0.03 X10*3/uL [facility] Lymphocytes Absolute Auto 2.0 1.2 - 4.9 X10*3/uL [facility] Monocytes Absolute Auto 0.4 0.1 - 1.2 X10*3/uL [facility] Eosinophils Absolute Auto 0.2 0.0 - 0.4 X10*3/uL [facility] Basophils Absolute Auto 0.0 0.0 - 0.2 X10*3/uL [facility] NRBC Abs Auto 0.000 0.0 - 0.012 X10*3/uL [facility] 03/09/2022 5:39 PM EST 03/09/2022 5:43 PM EST [facility] External Provider LAB BLO OD ORDERABLES Final Result Performing Organization Address [facility] Co de Phone Number [facility] [address] [place] [address] [phone] * Prothrombin Time-INR (03/09/2022 5:39 PM EST) Prothrombin Time 10.9 10.0 - 13.1 SEC [facility] INTERNATIONAL NORM RATIO 1.0 0.9 - 1.1 [facility] Comment:INTERNATIONAL NORMAL IZED RATIO (INR) [...] 5:39 PM EST 03/09/2022 5:43 PM EST [facility] External Provider LAB BLO OD ORDERABLES Final Result Performing Organization Address [facility] de Phone Number [facility] [address] [place] [address] [phone] * GLUCOSE, WHOLE BLOOD (03/01/2022 12:41 AM EST) Glucose, Whole Blood 79 60 - 115 mg/dL [facility] Comment:METER #: [id number] 1 03/01/2022 12:4 1 AM EST 03/01/2022 12:46 AM EST [facility] External Provider LAB BLO OD ORDERABLES Final Result Performing Organization Address [facility] Co de Phone Number [facility] [address] [place] [phone] * (ABNORMAL) GLUCOSE, WHOLE BLOOD (02/28/2022 10:39 PM EST) Glucose, Whole Blood 273(H) 60 - 115 mg/dL [facility] Comment:METER #: [id number] 1 02/28/2022 10:3 9 PM EST 02/28/2022 10:45 PM EST [facility] External Provider LAB BLO OD ORDERABLES Final Result Performing Organization Address City/[facility] Co de Phone Number [facility] [address] [place] [phone] * (ABNORMAL) Comprehensive Metabolic Panel (02/28/2022 9:42 PM EST) Sodium 138 135 - 145 mmol/L [facility] Potassium 4.3 3.3 - 5.1 mmol/L [facility] Comment:Slight Hemolysis Chloride 106 96 - 108 mmol/L [facility] Carbon Dioxide 24 22 - 29 mmol/L [facility] Anion Gap 12 12 - 20 [facility] Urea Nitrogen (BUN) 14 9 - 16 mg/dL [facility] Creatinine, Serum 0.87 0.5 - 1.4 mg/dL [facility] Creatinine Clr Calc Pharmacy 57.2 [facility] Comment:Provided height and weight: 152.4 cm,63.503 kg.eGFR (calculated from the MDRD study equation) and eCrCl(calculated from the Cockcroft-Gault equation) are based ondifferent parameters and may not yield comparable results.If eCrCl result is absurd, please check patient'sheight/weight. Estimated Glomerular Filt Rate >60 [facility] Comment:NOTE: For -Am erican individuals, multiply the result by 1.210.Chronic Kidney Disease: Estimated GFR < 60 mL/min/1.97l5Dapgbc Kidney Disease: Estimated GFR < 15 mL/min/1.73m2 Glucose 378(HH) 60 - 115 mg/dL [facility] Comment:Critical value for t est(s): GLUR Results called to and readback by: EULA Person calling: BIANKA Date: 02/28/22Time: 2219 Calcium 9.3 8.4 - 10.2 mg/dL [facility] Bilirubin, Total 0.3 0.0 - 1.0 mg/dL [facility] Aspartate Amino Transferase 12 5 - 31 U/L [facility] Comment:Slight Hemolysis Alanine Aminotransferase 7 0 - 31 U/L [facility] Total Protein 6.7 6.5 - 8.0 g/dL [facility] Albumin Level 3.9 3.5 - 5.0 g/dL [facility] Alkaline Phosphatase 83 39 - 117 U/L [facility] 02/28/2022 9:42 PM EST 02/28/2022 9:48 PM EST us [facility] External Provider LAB BLO OD ORDERABLES Final Result [facility] [address] [place] [address] [phone] * HIGH SENSITIVITY TROPONIN I (02/28/2022 9:42 PM EST) TROPONIN I HIGH SENSITIVITY 7.1 <3.5 - 17.0 ng/L [facility] Comment:The Ibrahim high sens itivity Troponin-I results should beused in conjunction with other diagnostic information suchas ECG, clinical observations and information, and patientsymptoms to aid in the diagnosis of OR. 02/28/2022 9:42 PM EST 02/28/2022 9:48 PM EST [facility] External Provider LAB BLO OD ORDERABLES Final Result [facility] [address] [place] [phone] * (ABNORMAL) CBC (02/28/2022 9:42 PM EST) Pathologist [facility] White Blood Count 7.0 4.8 - 10.8 X10*3/uL [facility] Red Blood Count 4.22 4.20 - 5.50 X10*6/uL [facility] Hemoglobin 12.1 12.0 - 16.0 g/dl [facility] Hematocrit 36.4(L) 37.0 - 47.0 % [facility] Mean Corpuscular Volume 86.3 80.0 - 98.0 fL [facility] Mean Corpuscular Hemoglobin 28.7 27.0 - 33.0 pg [facility] Mean Corpuscular HGB Conc 33.2 31.0 - 35.0 g/dl [facility] Red Cell Distribution Width 13.3 11.0 - 16.0 % [facility] Platelet Count 311 160 - 400 X10*3/uL [facility] Mean Platelet Volume 9.7 9.4 - 12.3 fL [facility] NRBC Pct Auto 0.0 0.0 - 0.2 /100WBC [facility] NRBC Abs Auto 0.000 0.0 - 0.012 X10*3/uL [facility] 02/28/2022 9:42 PM EST 02/28/2022 9:48 PM EST [facility] External Provider LAB BLO OD ORDERABLES Final Result Performing Organization Address City/[facility]/ZIP Co de Phone Number [facility] [address] [place] [phone] * (ABNORMAL) GLUCOSE, WHOLE BLOOD (02/28/2022 9:38 PM EST) Pathologist [facility] Glucose, Whole Blood 379(HH) 60 - 115 mg/dL [facility] Comment:METER #: [id number] 1 02/28/2022 9:38 PM EST 02/28/2022 9:48 PM EST [facility] External Provider LAB BLO OD ORDERABLES Final Result Performing Organization Address [facility] Co de Phone Number [facility] [address] [place] [address] [phone] * (ABNORMAL) Urinalysis, Complete, with Reflex to Culture (02/22/2022 3:20 PM EST) Color Urine Yellow [facility] Appearance Urine Cloudy [facility] PH 6.5 5.0 - 9.0 [facility] Glucose Urine UA >=1000(A) Negative mg/dL [facility] Urine Blood Negative Negative [facility] Specific [place] - Urine 1.020 1.005 - 1.025 [facility] Urine Protein 100 (2+)(A) Neg-Trace mg/dL [facility] Urine Ketones Negative Negative mg/dL [facility] Nitrite Urine Negative Negative [facility] Leukocyte Esterase Urine Small (1+)(A) Negative [facility] RBC Urine 3-5(A) 0 - 2 /HPF [facility] Urine WBC 0-5 0 - 5 /HPF [facility] Urine Squamous Epithelial Cell 0-2 0 - 2 /HPF [facility] Urine Bacteria None Seen None Seen [facility] Hyaline Casts, Urine 3-5 0 - 2 /LPF [facility] 02/22/2022 3:20 PM EST 02/22/2022 3:27 PM EST Narrative [facility] - 02/22/2022 4:14 PM EST [id number], Clean Catch [facility] External Provider LAB URI NE ORDERABLES Final Result Performing Organization Address City/[facility] Co de Phone Number [facility] [address] [place] [phone] * SARS-CoV-2 RNA, Influenza A/B, and RSV RNA, Ql NAAT (02/22/2022 3:14 PM EST) Pathologist [facility] Influenza A PCR NEGATIVE Negative [facility] Influenza B PCR NEGATIVE Negative [facility] Resp Syncy Virus RNA Qual PCR NEGATIVE Negative [facility] SARS COV2 PCR NEGATIVE Negative [facility] SARS/Flu/RSV Note See Note [facility] Comment:All test results mus t [...] use by authorized laboratories.Testing performed on the [facility] GeneXpert utilizingreal-time RT-PCR.All SARS CoV2 and positive influenza A/B results arereported to [facility]. 02/22/2022 3:14 PM EST 02/22/2022 3:19 PM EST [facility] Exter nal Provider LAB MICROBIOLOGY - GENERAL ORDERABLES Final Result Performing Organization Address [facility]/ZIP Co de Phone Number [facility] [address] [place] [address] [phone] * HIGH SENSITIVITY TROPONIN I (02/22/2022 3:14 PM EST) Pathologist [facility] TROPONIN I HIGH SENSITIVITY 8.8 <3.5 - 17.0 ng/L [facility] Comment:The Ibrahim high sens itivity Troponin-I results should beused in conjunction with other diagnostic information suchas ECG, clinical observations and information, and patientsymptoms to aid in the diagnosis of OR. 02/22/2022 3:14 PM EST 02/22/2022 3:19 PM EST [facility] External Provider LAB BLO OD ORDERABLES Final Result Performing Organization Address City/[facility]/ZIP Co de Phone Number [facility] [address] [place] [phone] * Magnesium (02/22/2022 3:14 PM EST) Magnesium 1.6 1.6 - 2.6 mg/dL [facility] 02/22/2022 3:14 PM EST 02/22/2022 3:19 PM EST [facility] External Provider LAB BLO OD ORDERABLES Final Result Performing Organization Address [facility] de Phone Number [facility] [address] [place] [phone] * (ABNORMAL) Basic Metabolic Panel (02/22/2022 3:14 PM EST) Pathologist [facility] Sodium 136 135 - 145 mmol/L [facility] Potassium 4.4 3.3 - 5.1 mmol/L [facility] Chloride 103 96 - 108 mmol/L [facility] Carbon Dioxide 27 22 - 29 mmol/L [facility] Anion Gap 10(L) 12 - 20 [facility] Urea Nitrogen (BUN) 20(H) 9 - 16 mg/dL [facility] Creatinine, Serum 0.99 0.5 - 1.4 mg/dL [facility] Creatinine Clr Calc Pharmacy 50.6 [facility] Comment:Provided height and weight: 152.4 cm,64.5 kg.eGFR (calculated from the MDRD study equation) and eCrCl(calculated from the Cockcroft-Gault equation) are based ondifferent parameters and may not yield comparable results.If eCrCl result is absurd, please check patient'sheight/weight. Estimated Glomerular Filt Rate 57 [facility] Comment:NOTE: For -Am erican individuals, multiply the result by 1.210.Chronic Kidney Disease: Estimated GFR < 60 mL/min/1.74k4Dcwoyh Kidney Disease: Estimated GFR < 15 mL/min/1.73m2 Glucose 343(H) 60 - 115 mg/dL [facility] Calcium 9.3 8.4 - 10.2 mg/dL [facility] 02/22/2022 3:14 PM EST 02/22/2022 3:19 PM EST [facility] External Provider LAB BLO OD ORDERABLES Final Result Performing Organization Address [facility] Co de Phone Number [facility] [address] [place] [address] [phone] * (ABNORMAL) Hepatic Function Panel (02/22/2022 3:14 PM EST) Bilirubin, Total 0.4 0.0 - 1.0 mg/dL [facility] Bilirubin, Direct <0.2 0.0 - 0.5 mg/dL [facility] Aspartate Amino Transferase 10 5 - 31 U/L [facility] Alanine Aminotransferase 6 0 - 31 U/L [facility] Total Protein 6.1(L) 6.5 - 8.0 g/dL [facility] Albumin Level 3.7 3.5 - 5.0 g/dL [facility] Alkaline Phosphatase 82 39 - 117 U/L [facility] 02/22/2022 3:14 PM EST 02/22/2022 3:19 PM EST [facility] External Provider LAB BLO OD ORDERABLES Final Result Performing Organization Address [facility] Co de Phone Number [facility] [address] [place] [address] [phone] * (ABNORMAL) CBC auto differential (02/22/2022 3:14 PM EST) White Blood Count 5.6 4.8 - 10.8 X10*3/uL [facility] Red Blood Count 3.99(L) 4.20 - 5.50 X10*6/uL [facility] Hemoglobin 11.8(L) 12.0 - 16.0 g/dl [facility] Hematocrit 35.1(L) 37.0 - 47.0 % [facility] Mean Corpuscular Volume 88.0 80.0 - 98.0 fL [facility] Mean Corpuscular Hemoglobin 29.6 27.0 - 33.0 pg [facility] Mean Corpuscular HGB Conc 33.6 31.0 - 35.0 g/dl [facility] Red Cell Distribution Width 13.2 11.0 - 16.0 % [facility] Platelet Count 265 160 - 400 X10*3/uL [facility] Mean Platelet Volume 10.0 9.4 - 12.3 fL [facility] Neutrophils Percent Auto 49.1 45 - 73 % [facility] Imm Gran Pct Auto 0.4 0.0 - 0.4 % [facility] Lymphocytes Percent Auto 40.1(H) 20 - 40 % [facility] Monocytes Percent Auto 6.1 2 - 11 % [facility] Eosinophils Percent Auto 3.4 0 - 4 % [facility] Basophils Percent Auto 0.9 0 - 2 % [facility] NRBC Pct Auto 0.0 0.0 - 0.2 /100WBC [facility] Neutrophils Absolute Auto 2.7 2.0 - 8.3 x10*3/uL [facility] Imm Gran Abs Auto 0.02 0.00 - 0.03 X10*3/uL [facility] Lymphocytes Absolute Auto 2.2 1.2 - 4.9 X10*3/uL [facility] Monocytes Absolute Auto 0.3 0.1 - 1.2 X10*3/uL [facility] Eosinophils Absolute Auto 0.2 0.0 - 0.4 X10*3/uL [facility] Basophils Absolute Auto 0.1 0.0 - 0.2 X10*3/uL [facility] NRBC Abs Auto 0.000 0.0 - 0.012 X10*3/uL [facility] 02/22/2022 3:14 PM EST 02/22/2022 3:19 PM EST [facility] External Provider LAB BLO OD ORDERABLES Final Result Performing Organization Address [facility] Co de Phone Number [facility] [address] [place] [address] [phone] * Culture, Urine, Routine (02/22/2022 12:00 AM EST) 02/22/2022 02/22/2022 5:2 3 PM EST Comment:UACC Narrative [facility] - 02/24/2022 11:31 AM EST Urine Culture Report Result Urine Culture 10,000 to 50,000 cfu/ml Urine Culture Mixed bacterial benton characteristic of Urine Culture urogenital contamination. Specimen Source: Urine clean catch Result [facility] Exter nal Provider LAB MICROBIOLOGY - GENERAL ORDERABLES Final Result Performing Organization Address [facility] Co de Phone Number [facility] [address] [place] [phone] documented in this encounter Visit Diagnoses Not on filedocumented in this encounter Care Teams Department Director Relationship Specialty Start Date End Date Radha Jamison DO 230 [place] [address] PCP - General Family Medicine 01/26/12 Abdias Murillo, PharmD [address] [place] [address] Pharmacist Internal Medicine 03/21/22 08/30/23 Nelia Sullivan PharmD [address] [place] [address] Pharmacist Internal Medicine 08/31/23 Laurel Monterroso [employer] OperatorBook Repairer 10/27/22 Saige Aguilar 8/13/24 documented as of this encounter
--- OUTSIDE RECORDS SUMMARY | 2024-10-15 03:06 | XMS_ITS | Clinical Summary ---
Author Organization [employer] Address [address] [facility] [address] [place] [address] Care Team Providers Care Housekeeping Worker Name Role Phone DenniseRadha broussard Primary Care Provider Nelia Sullivan PharmD Unavailable [phone] Allergies Active Allergy Reactions Criticality Noted [...] check BP once daily 1 each Active NIFEdipine XL (Procardia XL) 90 MG 24 hr tabletIndications: Essential hypertension Take 1 tablet (90 mg) by mouth Once per day. Do not crush, chew, or split. 90 tablet 3 024 Active pioglitazone (Actos) 15 MG tabletIndications: Type 2 diabetes mellitus with hyperglycemia, with long-term current use of insulin ([facility]) TAKE 1 TABLET BY MOUTH EVERY MORNING 90 tablet 3 024 Active SUMAtriptan (Imitrex) 25 MG tablet Take [...] day. 90 tablet 3 024 2024 Active isosorbide mononitrate ER (Imdur) 30 MG 24 hr tablet Take 30 mg by mouth in the morning. Active Alcohol Swabs (Alcohol Prep) 70 % pads USE 1 THREE TIMES DAILY AND NEEDED 100 each 11 Active nitroglycerin (Nitrostat) 0.[address] 1 tablet (0.4 mg) under the tongue every 5 (five) minutes if needed for chest pain. 30 tablet 024 2024 Active Continuous Glucose Learning [employer] Development Consultant (FreeStyle Jenn 3 [place]) device 1 each 3 times daily. Use daily as directed for CGM 1 each Active Continuous Glucose Sensor (FreeStyle Jenn 3 Plus Sensor) misc 1 each Once per day. Apply 1 sensor as directed every 15 days for CGM 2 each Active glucose blood (FreeStyle Precision Julian Test) test strip Use to test blood sugar 3 times daily 100 each 025 2025 Active TRUEplus Lancets 33G [facility] TEST BLOOD SUGAR UP TO THREE TIMES DAILY DIRECTED 100 each Active empagliflozin-metF ORMIN (Synjardy) 12.5-1000 MG Take [...] MORNING AND EVENING WITH FOOD 360 capsule 3 Active acetaminophen (Tylenol 8 Hour) 650 MG ER tablet Take 1 tablet (650 mg) by mouth every 8 (eight) hours. 100 tablet 2 025 2025 Active lidocaine (Lidoderm) 5 % patch Apply 1-2 patches topically Once per day. Remove & discard patch within 12 hours or as directed by MD. 60 patch 2025 Active baclofen (Lioresal) 10 MG tablet Take 1 tablet (10 mg) by mouth if needed in the morning, at noon, and at bedtime for muscle spasms. 60 tablet 3 025 2025 Active nicotine polacrilex (Commit) 2 MG lozenge Dissolve 1 lozenge, as directed, every 1-2 hours as needed for cravings. Max 20 lozenges per 24 hours. 77 lozenge 5 Active albuterol 108 (90 Base) MCG/ACT inhalerIndications :Mild persistent asthma without complication Inhale 2 puffs every 6 (six) hours if needed for wheezing. 18 g 2 2025 Active escitalopram (Lexapro) 20 MG tabletIndications: Depression, unspecified depression type TAKE 1 TABLET BY MOUTH EVERY EVENING 30 tablet 5 Active amitriptyline (Elavil) 50 MG tabletIndications: Other chronic pain TAKE 1 TABLET BY MOUTH AT BEDTIME 30 tablet Active mirtazapine (Remeron) 45 MG tabletIndications: Mood disorder (CMS/HCC) TAKE 1 TABLET BY MOUTH AT BEDTIME 30 tablet Active Ferrous Sulfate (iron) 325 (65 Fe) MG tabletIndications: Anemia, unspecified type TAKE 1 TABLET BY MOUTH TWICE DAILY IN THE MORNING AND AT BEDTIME 180 tablet Active docusate sodium (Colace) 100 MG capsuleIndications :Anemia, unspecified type TAKE 1 CAPSULE BY MOUTH TWICE DAILY IN THE MORNING AND IN THE EVENING FOR CONSTIPATION 180 capsule Active ezetimibe (Zetia) 10 MG tablet Take 1 tablet (10 mg) by mouth Once per day. 90 tablet 1 Active rosuvastatin (Crestor) 40 MG tablet Take 1 tablet (40 mg) by mouth at bedtime. 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 Active aspirin (Aspirin Low Dose) 81 MG EC tabletIndications: Hypertension, unspecified type TAKE 1 TABLET BY MOUTH EVERY EVENING 90 tablet 025 Active hydroCHLOROthiazid e (HYDRODiuril) 50 MG tablet Take 1 tablet (50 mg) by mouth Once per day. 90 tablet 1 025 Active Multiple Vitamin (Multivitamin) tabletIndications: Hypertension, unspecified type TAKE 1 TABLET BY MOUTH EVERY MORNING WITH FOOD 90 tablet 025 Active fluticasone (Flonase) 50 MCG/ACT nasal spray INSTILL 2 SPRAYS IN EACH NOSTRIL ONCE DAILY 48 g 2 Active Diclofenac Sodium 1 % gel APPLY 2 GRAMS TOPICALLY TO AFFECTED AREA(S) 4 TIMES A DAY IN THE MORNING, AT NOON, IN THE EVENING, AND AT BEDTIME NEEDED FOR PAIN 200 g 2 025 Active varenicline (Chantix) 1 MG tabletIndications: Tobacco dependence Take 1 tablet (1 mg) by mouth 2 times daily. Take with full glass of water. 56 tablet 4 Active insulin pen needle (Pentips Generic Pen [place]) 32G x 4 mm miscIndications:Ty pe 2 diabetes mellitus with hyperglycemia, with long-term current use of insulin ([facility]) Use as instructed to inject insulin once daily 100 each 3 025 Active Semaglutide,0.25 or 0.5MG/DOS, (Ozempic, 0.25 or 0.5 MG/DOSE,) 2 MG/3ML solution pen-injectorIndica tions:Type 2 diabetes mellitus with hyperglycemia, with long-term current use of insulin ([facility]) Inject 0.5 mg under the skin 1 (one) time per week. 3 mL 11 025 Active telmisartan (Micardis) 80 MG tabletIndications: Type 2 diabetes mellitus with hyperglycemia, with long-term current use of insulin ([facility]),Resistan t hypertension Take 1 tablet (80 mg) by mouth Once per day. 30 tablet 2 025 Active carvedilol (Coreg) 25 MG tabletIndications: Hypertension, unspecified type TAKE 1 TABLET BY MOUTH TWICE DAILY IN THE MORNING AND IN THE EVENING WITH FOOD 180 tablet 1 025 Active hydrOXYzine pamoate (Vistaril) 25 MG capsuleIndications :Mood disorder (CMS/HCC) TAKE 1 CAPSULE BY MOUTH EVERY SIX HOURS 60 capsule 2 025 Active Eliquis 5 MG tabletIndications: Splenic infarct Take 1 tablet (5 mg) by mouth 2 times daily. 60 tablet 3 025 Active nitroglycerin (Nitrostat) 0.3 MG SL tabletIndications: Coronary artery disease of [place] artery of [place] heart with stable angina pectoris (CMS/HCC) Place 1 tablet (0.3 mg) under the tongue every 5 (five) minutes if needed for chest pain. 90 tablet 1 025 2025 Active gabapentin (NEURONTIN) 400 MG tabletIndications: Chronic bilateral low back pain, unspecified whether sciatica present Take 1 tablet (400 mg) by mouth at bedtime. 30 tablet 11 025 2025 Active gabapentin (Neurontin) 600 MG tablet Take 1 tablet (600 mg) by mouth 2 times daily. Do not start before October 05, 2023. 60 tablet 11 024 2024 Discontinued(R eorder (will not trigger notification to Pharmacy)) carvedilol (Coreg) 25 MG tabletIndications: Hypertension, unspecified type TAKE 1 TABLET BY MOUTH TWICE DAILY IN THE MORNING AND IN THE EVENING WITH FOOD 180 tablet 1 025 2024 Discontinued(R eorder (will not trigger notification to Pharmacy)) hydrOXYzine pamoate (Vistaril) 25 MG capsuleIndications :Mood disorder (CMS/HCC) Take 1 capsule (25 mg) by mouth every 6 (six) hours if needed for anxiety. 60 capsule 2 025 2024 Discontinued Diclofenac Sodium 1 % gel Apply 2 g topically if needed in the morning, at noon, in the evening, and at bedtime (pain). 150 g 3 025 2024 Discontinued metFORMIN (Glucophage) 1000 MG tabletIndications: Type 2 diabetes mellitus with hyperglycemia, with long-term current use of insulin ([facility]) TAKE 1 TABLET BY MOUTH TWICE DAILY IN THE MORNING AND IN THE EVENING WITH FOOD 025 2024 Discontinued(M ed list cleanup (will not trigger notification to Pharmacy)) Pentips Generic Pen [place] 32G X 4 MM misc USE DIRECTED EVERY DAY FOR INJECTION DE INSULIN 2024 Discontinued(R eorder (will not trigger notification to Pharmacy)) Varenicline Tartrate, Starter, (Chantix Starting Month ) 0.5 MG X 11 & 1 MG X 42 tablet therapy packIndications:To bacco dependence Take 0.5 mg by mouth Once per day for 3 days, THEN 0.5 mg 2 times daily for 4 days, THEN 1 mg 2 times daily. 53 each 025 2024 Discontinued(T herapy completed) semaglutide (Ozempic, 1 MG/DOSE,) 4 MG/3ML solution pen-injectorIndica tions:Type 2 Diabetes Mellitus Inject 1 mg under the skin 1 (one) time per week. 3 mL 11 025 2024 Discontinued(S latosha effects) telmisartan (Micardis) 40 MG tabletIndications: Type 2 diabetes mellitus with hyperglycemia, with long-term current use of insulin (CMS/HCC),Resistan t hypertension Take 1 tablet (40 mg) by mouth Once per day. 90 tablet 1 025 2024 Discontinued(R eorder (will not trigger notification to Pharmacy)) Eliquis 5 MG tablet TAKE 2 TABLETS BY MOUTH TWICE DAILY FOR 7 DAYS THEN TAKE 1 TABLET BY MOUTH TWICE DAILY 025 2024 Discontinued(R eorder (will not trigger notification to Pharmacy)) Active Problems Problem Noted Date Diagnosed Date Splenic infarct 10/03/2024 Assessment & Plan (10/03/2024 10:27 AM EDT): Seems to be unprovoked I refilled her apixaban, I will refer her to hematology for further input Coronary artery disease of n ative artery of [place] heart with stable angina pectoris 10/03/2024 Assessment & Plan (10/03/2024 10:25 AM EDT): Refilled her nitroglycerine, patient has cardiology appointment on 11/07/24 I advised not to miss this appointment Left hip pain 07/26/2024 Left leg swelling 07/26/2024 Assessment & Plan (07/28/2024 6:49 PM EDT): Patient her for several months of L leg swelling, as yet undiagnosed - normal duplex US 05/2024 Lab Results Component Value Date BNP 75 06/07/2024 - no Ddimer completes, will order that today and repeat BNP - no significant vascular component, recommend compression socks and elevation - for her back pain/hip pain/L sided sciatica, recommend 5 days of Prednisone 20mg daily and watch blood sugars carefully during that time - check hip xray for OA or other diagnostic findings Bilateral carotid artery stenosis 07/24/2024 Overview (07/24/2024): 11/28/2022 - right carotid endarterectomy Osteomyelitis 07/24/2024 Overview (07/24/2024): She has osteomyelitis toe She is seeing improvement Ertapenem for six weeks NSTEMI (non-ST elevated myocardial infarction) 0 07/24/2024 Weight loss, abnormal 07/24/2024 Overview (07/24/2024): 40 lbs over past few months ST elevation (STEMI) myocardial infarction 07/24 Chronic bilateral low back pain 05/24/2024 Assessment & Plan (10/03/2024 10:28 AM EDT): I refilled her gabapentin, 400mg BID instead of 600mg (adjusted for renal function) Fibromuscular dysplasia of renal artery 11/02/19 24 [...] B vaccine -pap wnl May 2014 with DIGITAL TECH, advised schedule f/u, contact info given -mammo [...] -she will meet w/ HIM RN re: [employer] Obstructive sleep apnea 12/04/2014 Tobacco dependence 12/04/2014 Type 2 diabetes mellitus 12/04/2014 Assessment & Plan (10/03/2024 10:26 AM EDT): Diabetes is: not controlled - Lab Results Component Value Date HGBA1C 10.1 (A) 09/03/2024 HGBA1C 10.3 (A) 05/24/2024 HGBA1C 10.6 (A) 03/05/2024 - Lab Results Component Value Date MICROALBUR 1,418.0 05/15/2023 CREATININE 1.02 09/24/2024 -Changes: none F/u with PCP Assessment & Plan (12/28/2023 10:47 AM EST): [...] metformin and actos as rx'd -referred to [facility] pharm for CTDM -cont regular FS monitoring [...] the day and to continue care w public relations supervisor and PCP ------ Addendum : EMT came and potato picker pt but once she was taken to ambulance pt decide not to go to ED and signed leave AMA 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 05/04/2020 03/18/2022 Encounters Date Type Department Care Team Description 10/07/2024 Telephone [facility] MED[facility] [address] [place], [place] [phone] Radha Jamison DO Nurse Triage 10/03/2024 9:30 AM EDT Office Visit [facility] [address], [place] [phone] Vickie Penaloza MD Type 2 diabetes mellitus with hyperglycemia, with long-term current use of insulin ([facility]) (Primary Dx); Splenic infarct; Coronary artery disease of [place] artery of [place] heart with stable angina pectoris ([facility]); Chronic bilateral low back pain, unspecified whether sciatica present 10/03/2024 Travel 10/02/2024 Telephone [facility] MEDICINE [address], [place] [phone] Radha Jamison DO chart prep 10/02/2024 Refill [facility] MEDICINE [address], [place] [phone] Radha Jamison DO Mood disorder ([facility]/HCC) 10/01/2024 Refill [facility] [address] [place] [address] Radha Jamison DO Hypertension, unspecified type 09/24/2024 Orders Only GENERIC EXTERNAL DATA DEPARTMENT Provider, Generic External Data 09/24/2024 Travel 09/22/2024 Refill [facility] MEDICINE [address] [place] [address] Radha Jamison DO 09/19/2024 Telephone [facility] MEDICINE [address] [place] [address] Radha Jamison DO Nurse Triage 09/19/[address] [address] Radha Jamison DO Nurse Triage 09/11/2024 Patient Outreach [address] [address] Radha Jamison DO Transition Of Care (Tcm) (HDF- Scheduled ) 09/10/2024 Refill [facility] MEDICINE [address] [place] [phone] Radha Jamison DO 09/09/2024 Refill [facility] [address] [place] [address] Radha Jamison DO Hypertension, unspecified type 09/03/2024 Travel 09/02/2024 Patient Outreach [address] [phone] Radha Jamison DO Transition Of Care (Tcm) (HDF- Unscheduled LVM ) 09/02/[address] [address] Patricia Rinaldi, PharmD 08/23/[address] [address] Radha Jamison DO Appointment Request 08/13/2024 Travel 08/08/2024 Orders Only GENERIC EXTERNAL DATA DEPARTMENT Provider, Generic External Data 08/07/[address] [address] Radha Jamison DO Nurse Triage 07/24/2024 4:00 PM EDT Office Visit [facility] MEDICINE [address] [place] [address] Crystal Merino MD Left leg swelling (Primary Dx); Left hip pain; Dietary counseling; Exercise counseling; Overweight; Peripheral arterial disease ([facility]/HCC); Status post femoral-popliteal bypass surgery; Type 2 diabetes mellitus with hyperglycemia, with long-term current use of insulin ([facility]); Chronic bilateral low back pain with left-sided sciatica; Spinal stenosis of lumbar region, unspecified whether neurogenic claudication present 07/24/2024 Orders Only [facility] MEDICINE [address] [place] [phone] Radha Jamison DO 07/24/[address] [address] Radha Jamison DO No Show (Pt no show for sick on site ) 07/22/[address] [address] Radha Jamison DO Nurse Triage 07/16/[address] [address] Radha Jamison DO Hyperlipidemia, unspecified hyperlipidemia type; Seasonal allergic rhinitis due to other allergic trigger 07/16/2024 Refill [facility] [address] [place] [address] Nelia Sullivan, Camron from Last 3 Months Immunizations Immunization Administration Dates Next Due Influenza, IIV3, injectable 02/20/2009 Influenza, seasonal, injectable, preservative fr ee 11/18/2013 Pfizer Covid-19 Vaccine 12+ 10/02/2020 Pneumococcal Polysaccharide PPSV23 11/18/2013, Social History Tobacco Use Types Packs/Day Years Used Date Smoking Tobacco: Every Day Cigarettes 1 45.1 Started: 08/31/1979 Passive Smoke Exposure: Current Smokeless Tobacco: Never Tobacco Cessation:Ready to Q uit: Yes; Counseling Given: Yes Alcohol Use Standard Drinks/Week Comments Never 0 [...] Sign Reading Time Taken Comments Blood Pressure 140/80 10/03/2024 9:33 AM EDT Pulse 82 10/03/2024 9:33 AM EDT Temperature 36.8 C (98.3 F) 10/03/2024 9:33 AM EDT Respiratory Rate 21 10/03/2024 9:33 AM EDT Oxygen Saturation 99% 10/03/2024 9:33 AM EDT Inhaled Oxygen Concentration - - Weight 65.3 kg (144 lb) 10/03/2024 9:33 AM EDT Height 152.4 cm (5') 10/03/2024 9:33 AM EDT Body Mass Index 28.12 10/03/2024 9:33 AM EDT Plan of Treatment Upcoming Encounters Date Type Department Care Team (Late st Contact Info) Description 10/18/2024 10:00 AM EDT Medication Management [facility] MEDICINE [address] [place] [address] Nelia Sullivan, PharmD [address] [place] [address] Health Maintenance Due Date Last Done Comments [...] Mammogram 10/07/2023 10/06/2021 COVID-19 Vaccine (2 - 2023- season) 2023 10/02/2020 Diabetes: Urine Protein Screening 05/14/2024 05/15/2023, 08/08/2022, 10/01/2021, Additional history exists Depression Monitoring 06/19/2024 12/21/2023, 024 Influenza Vaccine (#1) 2024 11/18/2013, 2009 Diabetes: Hemoglobin A1C 12/04/2024 025, 05/24/2024, 03/05/2024, Additional history exists Alcohol/Substance Use Screening 01/31/2025 02/01/2024 Lipid Panel 07/24/2025 07/24/2024, 04/0 02/2023, 08/08/2022, Additional history exists Disability Screening 10/03/2025 10/03/2024 SDOH Screening 10/03/2025 10/03/2024 Tobacco Screening 10/03/2025 10/03/2024 HIV Screening Completed 08/08/2022, 10/01/2021 Hepatitis C [...] patient's age to complete this topic Meningococcal B Vaccine Aged Out No l onger eligible based on patient's age to complete [...] pressure once per day Blood Pressure No Pusebastian, Nelia, PharmD Blood Pressure < 140/90 Blood Pressure 140/80(2024 9:33 AM EDT) No Felice Sullivanyssa, PharmD Smoking cessation General No Puia Nelia, [...] Name Priority Date/Time Associated Diagnosis Comments POCT GLUCOSE Routine 10/03/2024 9:39 AM EDT Type 2 diabetes mellitus with hyperglycemia, with long-term current use of insulin (CMS/HCC) BASIC METABOLIC PANEL Routine 09/24/2024 11:19 AM EDT POCT GLYCATED HEMOGLOBIN, TOTAL Routine 09/03/2024 4:57 PM EDT Type 2 diabetes mellitus with hyperglycemia, with long-term current use of insulin (CMS/HCC) BASIC METABOLIC PANEL Routine 08/08/2024 12:01 PM EDT B TYPE NATRIURETIC PEPTIDE (BNP) STAT 08/08/2024 12:01 PM EDT Left leg swelling XR HIP 2 OR 3 VIEWS LEFT Routine 08/08/2024 11:32 AM EDT Left hip pain LIPID PANEL, STANDARD Routine 07/24/2024 10:41 AM EDT BASIC METABOLIC PANEL Routine 07/24/2024 10:41 AM EDT HEPATIC FUNCTION PANEL Routine 07/24/2024 10:41 AM EDT ALBUMIN, RANDOM URINE W/CREATININE Routine 05/15/2023 8:20 [...] to Health Maintenance Results * (ABNORMAL) POCT Glucose (10/03/2024 9:39 AM EDT) Glucose Blood, POC 258(A) 60 - 200 mg/dL QC Media Lot # [id number] Lot# Expiration Date ,[id number] Blood Capillary blood specimen / Unknown 10/03/2024 9:39 AM EDT Vickie Syed MD POINT OF CARE TEST EN TER/EDIT ORDERABLES Final Result * (ABNORMAL) Basic Metabolic Panel (09/24/2024 11:19 AM EDT) Only the most recent of3 resultswithin the time period is included. Sodium 139 135 - 145 mmol/L [facility] Potassium 3.9 3.3 - 5.1 mmol/L [facility] Chloride 105 96 - 108 mmol/L [facility] Carbon Dioxide 28 22 - 29 mmol/L [facility] Anion Gap 10(L) 12 - 20 [facility] Urea Nitrogen (BUN) 11 9 - 16 mg/dL [facility] Creatinine, Serum 1.02 0.5 - 1.4 mg/dL [facility] Estimated Glomerular Filt Rate 55 [facility] Comment:Chronic Kidney Disea se: Estimated GFR < 60 mL/min/[id number] Kidney Disease: Estimated GFR < 15 mL/min/1.73m2 Glucose 337(H) 60 - 115 mg/dL [facility] Calcium 8.1(L) 8.4 - 10.2 mg/dL [facility] 09/24/2024 11:1 9 AM EDT 09/24/2024 1:21 PM EDT us Generic External Data Provider LAB BLOOD ORDERAB LES Final Result Performing Organization Address [facility] Co de Phone Number [facility] [address] [place] [phone] * (ABNORMAL) POCT HGB A1C (09/03/2024 4:57 PM EDT) Pathologist [facility] Hemoglobin A1C 10.1(A) 4.0 - 5.7 % Blood 09/03/2024 4:57 PM EDT us Radha Jamison DO POINT OF CARE TEST ENTER/BHARGAVI T ORDERABLES Final Result * B Type Natriuretic Peptide (BNP) (08/08/2024 12:01 PM EDT) Pathologist [facility] B Type Natriuretic Peptide 96 <100 pg/mL [facility] Blood Venous blood specimen / Unknown 08/08/2024 12:01 PM EDT 08/08/2024 12:59 PM EDT us Crystal Merino MD LAB BLOOD ORDERABLES Final Res ult Performing Organization Address [facility] Co de Phone Number [facility] [address] [place] [phone] * XR Hip 2 or 3 Views Left (08/08/2024 11:32 AM EDT) Anatomical Region Laterality Modality Lower Extremities, Hip Left Radiograp hic Imaging 08/08/2024 11:3 2 AM EDT Narrative 08/08/2024 12:55 PM EDT [address] [phone] XRay Report Signed Patient: Rocío Hallman MR#: [id number] : 1960 Acct:[id number] Age/Sex: 63 / F ADM Date: 08/08/24 Loc: HO.HHCX Attending Dr: Radha Jamison DO Ordering Physician: Crystal Merino Date of Service: 08/08/24 Procedure(s): XR hip LT min 2V Accession Number(s): [id number] cc: Crystal Merino; Radha Jamison DO EXAMINATION: XR HIP, LEFT CLINICAL INFORMATION: Deep left hip pain COMPARISON: January 06, 2017 TECHNIQUE: Two views of the left hip. FINDINGS: Left hip joint is congruent and preserved. No fracture is evident. No significant soft tissue calcifications are seen. There is sclerosis and mild narrowing of the recesses joint. 2 Surgical clips project over the left hip joint, probably anterior to the joint. Mild to moderate vascular opacifications are present. XR/XR hip LT min 2V IMPRESSION: Unremarkable left hip. Electronically signed by: Zain Addison MD 08/08/2024 12:52 PM EDT RP Dictated By: Zain Addison MD Signed By: <Electronically signed by Zain Addison MD in OV> 08/08/24 1252 DD/ 1132 TD/TT: 08/08/24 1220 Spindle Setter: Procedure Note Donotuseinterpreter, Image - 08/08/[address] [address] XRay Report Signed Patient: Rocío HallmanMR#: [id number] : 1960cct:[id number] Age/Sex: 63 / FADM Date: 08/08/24 [facility] Att[facility] Dr: Radha Jamison DO Ordering Physician: Crystal Merino Date of Service: 08/08/24 Procedure(s): XR hip LT min 2V Accession Number(s): [id number] cc: Crystal Merino; Radha Jamison DO EXAMINATION: XR HIP, LEFT CLINICAL INFORMATION: Deep left hip pain COMPARISON: January 06, 2017 TECHNIQUE: Two views of the left hip. FINDINGS: Left hip joint is congruent and preserved. No fracture is evident. No significant soft tissue calcifications are seen. There is sclerosis and mild narrowing of the recesses joint. 2 Surgical clips project over the left hip joint, probably anterior to the joint. Mild to moderate vascular opacifications are present. XR/XR hip LT min 2V IMPRESSION: Unremarkable left hip. Electronically signed by: Zain Addison MD 08/08/2024 12:52 PM EDT RP Dictated By: Zain Addison MD Signed By: <Electronically signed by Zain Addison MD in OV> 08/08/24 1252 DD/ 1132 TD/TT: 08/08/24 1220 Spindle Setter: us Crystal Merino MD IMG XR PROCEDURES Final Result * (ABNORMAL) Hepatic Function Panel (07/24/2024 10:41 AM EDT) Bilirubin, Total 0.2 0.0 - 1.0 mg/dL [facility] Bilirubin, Direct <0.2 0.0 - 0.5 mg/dL [facility] Aspartate Amino Transferase 13 5 - 31 U/L [facility] Alanine Aminotransferase <6 0 - 31 U/L [facility] Total Protein 5.7(L) 6.5 - 8.0 g/dL [facility] Albumin Level 3.1(L) 3.5 - 5.0 g/dL [facility] Alkaline Phosphatase 87 39 - 117 U/L [facility] 07/24/2024 10:4 1 AM EDT 07/24/2024 10:41 AM EDT us Radha Jamison DO LAB BLOOD ORDERABLES Final R esult [facility] [address] [place] [phone] * (ABNORMAL) Lipid Panel, Standard (07/24/2024 10:41 AM EDT) Triglycerides 157(H) <150 mg/dL [facility] Comment:Desirable Triglyceri de: less than 150 mg/dLBorderline High Triglyceride 150-199 mg/dLHigh Triglyceride: 200-499 mg/dLVery High Triglyceride: greater than or equal to 5OO mg/dL Cholesterol 234(H) <200 mg/dL [facility] Comment:Desirable Cholestero l: less than 200 mg/dLBorderline High Cholesterol: 200-239 mg/dLHigh Cholesterol: greater than 239 mg/dL LDL Cholesterol Calculated 159(H) <100 mg/dL [facility] Comment:Desirable LDL: less than 100 mg/dLNear Optimal/Above Optimal LDL: 110- 129 mg/dLBorderline High LDL: 130-159 mg/dLHigh LDL: 160-189 mg/dLVery High LDL: greater than or equal to 190 mg/dL HDL Cholesterol 44 >40 mg/dL [facility] Comment:Desirable HDL: great er than 40 mg/dL Note: This HDL assay may give artificially low results in patients with liver disease. 07/24/2024 10:4 1 AM EDT 07/24/2024 10:41 AM EDT us Radha Jamison DO LAB BLOOD ORDERABLES Final R esult [facility] [address] [place] [phone] * (ABNORMAL) Albumin, Random Urine W/Creatinine (05/15/2023 8:20 AM EDT) Creatinine, Urine 105.69 mg/dL [facility] Microalbumin Urine 1,418.0 mg/L [facility] Microalbum Creatinine Ratio Ur 1,341.6(H ) <30 ug/mg cr [facility] Comment:Albumin/Creatinine R atio Reference Ranges: Normal: < 30 ug/mg creatinine Microalbuminuria: 30 - 300 ug/mg creatinineClinical Albuminuria: > 300 ug/mg creatinine Urine (Urine, Random) 05/15/2023 8:20 AM EDT 05/15/2023 8:31 AM EDT Radha Shaheen DO LAB URINE ORDERABLES Final R esult [facility] [address] [place] [phone] * Hepatitis C Antibody with Reflex to HCV RNA,PCR w/Reflex to Genotype, LiPA (08/08/2022 10:44 AM EDT) Hepatitis C Antibody NON-REACT ROMERO NON-REACT ROMERO [email or web address] Comment: HCV antibody was non-reactive. There is no laboratory evidence of HCV infection. In most cases, no further action is required. However, if recent HCV exposure is suspected, a test for HCV RNA (test code 27117) is suggested. For additional information, please refer to http://Carte Blanche.Ooploo/faq/DBQ821 (This link is being provided for informational/ educational purposes only.) 08/08/2022 10:4 4 AM EDT 08/08/2022 10:45 AM EDT Narrative [facility] - 08/09/2022 7:27 PM EDT FASTING:YES COLLECTION KIT GIVEN TO PATIENT. PATIENT ADVISED TO RETURN. FASTING: YES Radha Shaheen DO LAB BLOOD ORDERABLES Final R esult Performing Organization Address City/[facility]/ZIP Co de Phone Number [facility] [address], [place] [address] [facility] [place] [facility] [address] [place] [address] * HIV-1/2 Antigen and Antibodies, Fourth Generation, with Reflexes (08/08/2022 10:44 AM EDT) HIV Antigen/Antibody, 4th Generation NON-REAC TIVE NON-REAC TIVE [email or web address] Comment: HIV-1 antigen and HIV-1/HIV-2 antibodies were not detected. There is no laboratory evidence of HIV infection. PLEASE NOTE: This information has been disclosed to you from records whose confidentiality may be protected by state law. If your state requires such protection, then the state law prohibits you from making any further disclosure of the information without the specific written consent of the person to whom it pertains, or as otherwise permitted by law. A general authorization for the release of medical or other information is NOT sufficient for this purpose. For additional information please refer to http://education.Xinyi Network.Jetbay/faq/FGI270 (This link is being provided for informational/ [...] BLOOD ORDERABLES Final R esult [facility] [address], [place] [address] [facility] [address] [place] [address] * Mammography Report 1 (10/06/2021 1:35 PM [...] Phone Billing Address Personal/Family Self 1960 [address] [facility] [address] [place] [address] [facility] * Guarantor: Rocío Hallman Account Type Relation to Patient Date of Phone Billing Address Dental Self [address] [place] [address] * Guarantor: Rocío Hallman Account Type Relation to Patient Date of Phone Billing Address Personal/Family Self [address] [place] [address] * Guarantor: Rocío Hallman Account Type Relation to Patient Date of Phone Billing Address Personal/Family Self [address] [place] [address] * Guarantor: Rocío Hallman Account Type Relation to Patient Date of Phone Billing Address Personal/Family Self [address] [place] [address] Care Teams Housekeeping Worker Relationship Specialty Start Date End Date Radha Jamison DO [address] [place] [address] PCP - General Family Medicine 01/26/12 Nelia Sullivan PharmD [address] [place] [address] Pharmacist Internal Medicine 08/31/23 Laurel Monterroso Mold Making Plastics Sheets SupervisorPark Interpretive Ranger 10/27/22 Saige Aguilar 09/26/23
--- OUTSIDE RECORDS SUMMARY | 2024-10-15 03:06 | XMS_ITS | Encounter Summary ---
Author Organization [employer] Address [address] [facility] 7t [place] [address] Care Team Providers Care Electronics Engineering Manager Name Role Phone Radha Jamison DO Primary Care Provider +1- [phone] Nelia Sullivan PharmD Unavailable [phone] Reason for Visit * Reason Comments Med Refill Encounter Details Date Type Department Care Team ([facility] Contact Info) Description 01/06/2024 Refill [facility] [address] [place] [address] Radha Jamison DO [address] [place] [address] Depression, unspecified depression type; Essential (primary) hypertension [...] the past 12 months, has t he [employer], gas, oil or water [employer] threatened to shut off services in your [...] Description 10/18/2024 10:00 AM EDT Medication Management [facility] [address] [place] [address] PuiaFeliceNelia, PharmD [address] [place] [address] documented as of this encounter Goals Goal [...] documented as of this encounter Care Teams Electronics Engineering Manager Relationship Specialty Start Date End Date Radha Jamison DO [address] [place] [address] PCP - General Family Medicine 01/26/12 Nelia Sullivan PharmD [address] [place] [address] Pharmacist Internal Medicine 08/31/23 Laurel Monterroso Grade CheckerPicking Supervisor 10/27/22 Saige Aguilar 09/26/23 documented as of this encounter
--- OUTSIDE RECORDS SUMMARY | 2024-10-15 03:06 | XMS_ITS | Encounter Summary ---
Author Organization [employer] Address [address] 7t [place] [address] Care Team Providers Care Lining Printer Name Role Phone Radha Jamison DO Primary Care Provider [phone]- [phone] Abdias Murillo PharmD Unavailable Unavail able Nelia Sullivan PharmD Unavailable [phone] Encounter Details Date Type Department Care Team (Late st Contact Info) Description 06/15/2023 Orders Only [facility] [address] [place] [address] Radha Jamison DO [address] [place], [place] [phone] Stenosis of right carotid artery Social History [...] Description 10/18/2024 10:00 AM EDT Medication Management [facility] [address] [place] [address] Nelia Sullivan PharmD [address] [place] [address] documented as of this encounter Goals Goal Patient Goal Type Associated Problems Recent Progress Patient-Stated? Author Hemoglobin A1c < 7 Result Component 10.1( 5 4:57 PM EDT) No Abdias Murillo PharmD documented as of this encounter Procedures [...] documented as of this encounter Care Teams Lining Printer Relationship Specialty Start Date End Date Radha Jamison DO [address] [place] [address] PCP - General Family Medicine 01/26/12 Abdias Murillo, PharmD [address] [place] [address] Pharmacist Internal Medicine 03/21/22 08/30/23 Nelia Sullivan, KeithD [address] [place] [address] Pharmacist Internal Medicine 08/31/23 Laurel Monterroso Hedis Review NurseSafety Associate 10/27/22 Saige Aguilar 09/26/23 documented as of this encounter
--- OUTSIDE RECORDS SUMMARY | 2024-10-15 03:06 | XMS_ITS | Encounter Summary ---
Author Organization [employer] Address [address] [facility] 7t [place] [address] Care Team Providers Care Multiple Knife Edge Trimmer Operator Name Role Phone Radha Jamison DO Primary Care Provider [phone]- [phone] Abdias Murillo PharmD Unavailable Unavail able Nelia Sullivan PharmD Unavailable [phone] Reason for Visit * Reason Comments Med Refill Encounter Details Date Type Department Care Team (Late st Contact Info) Description 12/20/2022 Refill [facility] [address] [place] [address] Radha Jamison DO [address] [place] [address] Chronic bilateral low back pain, unspecified whether [...] 10:00 AM EDT Medication Management [facility] [address] [place] [address] Nelia Sullivan PharmD [address] [place] [address] documented as of this encounter Goals Goal [...] documented as of this encounter Care Teams Multiple Knife Edge Trimmer Operator Relationship Specialty Start Date End Date Radha Jamison DO [address] [place] [address] PCP - General Family Medicine 01/26/12 Abdias Murillo PharmD [address] [place] [address] Pharmacist Internal Medicine 03/21/22 08/30/23 Nelia Sullivan PharmD [address] [place] [address] Pharmacist Internal Medicine 08/31/23 Laurel Monterroso Collective Bargaining SpecialistResident Care Provider 10/27/22 Saige Aguilar 09/26/23 documented as of this encounter
--- OUTSIDE RECORDS SUMMARY | 2024-10-15 03:06 | XMS_ITS | Encounter Summary ---
Author Organization [employer] Address [address] [facility] 7t [place] [address] Care Team Providers Care Labor Supervisor Name Role Phone Radha Jamison DO Primary Care Provider [phone] Abdias Murillo PharmD Unavailable Unavail able Nelia Sullivan PharmD Unavailable [phone] Reason for Visit * Reason Comments Med Refill Encounter Details Date Type Department Care Team (Late st Contact Info) Description 06/10/2022 Refill [facility] [address] [place] [address] Radha Jamison DO [address] [place] [address] Chronic bilateral low back pain, unspecified whether [...] Description 10/18/2024 10:00 AM EDT Medication Management [facility] [address] [place] [address] Nelia Sullivan PharmD [address] [place] [address] documented as of this encounter Goals Goal Patient Goal Type Associated Problems Recent Progress Patient-Stated? Author Hemoglobin A1c < 7 Result Component 10.1( 4:57 PM EDT) No Abdias Murillo, KeithD documented as of this encounter Visit Diagnoses Diagnosis Chronic bilateral low back pain, unspecified whether sciatica present documented in this encounter Additional Health Concerns Assessment Noted Time PHQ-9 Depression Total Score: 14 023 12:00 PM EST documented as of this encounter Care Teams Labor Supervisor Relationship Specialty Start Date End Date Radha Jamison DO [address] [place] [address] PCP - General Family Medicine 01/26/12 Abdias Murillo, PharmD [address] [place] [address] Pharmacist Internal Medicine 03/21/22 08/30/23 Nelia Sullivan PharmD [address] [place] [address] Pharmacist Internal Medicine 08/31/23 Laurel Monterroso Department Sales ManagerTutoring Clinician 10/27/22 Saige Aguilar 09/26/23 documented as of this encounter
--- OUTSIDE RECORDS SUMMARY | 2024-10-15 03:06 | XMS_ITS | Encounter Summary ---
Author Organization [employer] Address [address] [facility] 7t [place] [address] Care Team Providers Care Health And Wellness Instructor Name Role Phone Radha Jamison DO Primary Care Provider Abdias Murillo PharmD Unavailable Unavail able Nelia Sullivan PharmD Unavailable Encounter Details Date Type Department Care Team ([facility] st Contact Info) Description 10/10/2022 Telephone [facility] [address] [place] [address] Radha Jamison DO [address] [place] [address] Social History Tobacco Use Types Packs/Day Years [...] Description 10/18/2024 10:00 AM EDT Medication Management [facility] [address] [place] [address] Nelia Sullivan PharmD [address] [place] [address] documented as of this encounter Goals Goal Patient Goal Type Associated Problems Recent Progress Patient-Stated? Author Hemoglobin A1c < 7 Result Component 10.1( 4:57 PM EDT) No Abdias Murillo, Camron documented as of this encounter Visit Diagnoses Not on filedocumented in this encounter Additional Health Concerns Assessment Noted Time PHQ-9 Depression Total Score: 14 023 12:00 PM EST documented as of this encounter Care Teams Health And Wellness Instructor Relationship Specialty Start Date End Date Radha Jamison DO [address] [place] [address] PCP - General Family Medicine 01/26/12 Abdias Murillo, PharmD [address] [place] [address] Pharmacist Internal Medicine 03/21/22 08/30/23 Nelia Sullivan PharmD [address] [place] [address] Pharmacist Internal Medicine 08/31/23 Laurel Monterroso Multi Line Claims AdjusterTwo Way Radio Installer 10/27/22 Saige Aguilar 09/26/23 documented as of this encounter
--- OUTSIDE RECORDS SUMMARY | 2024-10-15 03:06 | XMS_ITS | Encounter Summary ---
Author Organization [employer] Address [address] [facility] 7t [place] [address] Care Team Providers Care Laminating Machine Tender Name Role Phone Radha Jamison DO Primary Care Provider [phone]- [phone] Abdias Murillo PharmD Unavailable Unavail able Nelia Sullivan PharmD Unavailable [phone] Reason for Visit * Reason Comments Med Refill Encounter Details Date Type Department Care Team (Late st Contact Info) Description 06/06/2023 Refill [facility] [address] [place] [address] Radha Jamison DO [address] [place] [address] Chronic bilateral low back pain, unspecified whether [...] Description 10/18/2024 10:00 AM EDT Medication Management [facility] [address] [place] [address] Nelia Sullivan PharmD [address] [place] [address] documented as of this encounter Goals Goal [...] documented as of this encounter Care Teams Laminating Machine Tender Relationship Specialty Start Date End Date Radha Jamison DO [address] [place] [address] PCP - General Family Medicine 01/26/12 Abdias Murillo PharmD [address] [place] [address] Pharmacist Internal Medicine 03/21/22 08/30/23 Nelia Sullivan PharmD [address] [place] [address] Pharmacist Internal Medicine 08/31/23 Laurel Monterroso Flat Surfacer JewelBank Consultant 10/27/22 Saige Aguilar 09/26/23 documented as of this encounter
--- OUTSIDE RECORDS SUMMARY | 2024-10-15 03:06 | XMS_ITS | Encounter Summary ---
Author Organization [employer] Address [address] [facility] 7t [place] [address] Care Team Providers Care Millinery Designer Name Role Phone Radha Jamison DO Primary Care Provider [phone]- [phone] Nelia Sullivan PharmD Unavailable [phone] Reason for Visit * Reason Comments Med Refill Encounter Details Date Type Department Care Team ([facility] Contact Info) Description 05/07/2024 Refill [facility] [address] [place], [place] [phone] Radha Jamison DO [address] [place] [address] Social History Tobacco Use Types Packs/Day Years [...] [facility] 230 [place] [address] Nelia Sullivan, PharmD [address] [place] [address] documented as of this encounter Goals Goal Patient Goal Type Associated Problems Recent Progress Patient-Stated? Author Record your blood pressure once per day Blood Pressure No AnaiiaNelia, PharmD Blood Pressure < 140/90 Blood Pressure 140/80(2024 9:33 AM EDT) No Puia Nelia, PharmD Smoking cessation General No Puia Nelia, PharmD Patient will adhere to medication regimen General No PuiaFeliceNelia, PharmD Hemoglobin A1c < 7 Result Component 10.1(09/04/19 4:57 PM EDT) No DelAbdias hardy, PharmD Record [...] documented as of this encounter Care Teams Millinery Designer Relationship Specialty Start Date End Date Radha Jamison DO [address] [place] [address] PCP - General Family Medicine 01/26/12 Nelia Sullivan PharmD [address] [place] [address] Pharmacist Internal Medicine 08/31/23 Laurel Monterroso [place] SeamerHygiene Assistant 10/27/22 Saige Aguilar 09/26/23 documented as of this encounter
--- OUTSIDE RECORDS SUMMARY | 2024-10-15 03:06 | XMS_ITS | Encounter Summary ---
Author Organization [employer] Address [address] [facility] 7t [place] [address] Care Team Providers Care Neon Sign Worker Name Role Phone Radha Jamison DO Primary Care Provider [phone] Abdias Murillo PharmD Unavailable Unavail able Nelia Sullivan PharmD Unavailable [phone] Reason for Visit * Reason Comments Med Refill Encounter Details Date Type Department Care Team (Late st Contact Info) Description 12/21/2022 Refill [facility] 230 [place] [address] Radha Jamison DO [address] [place] [address] Chronic bilateral low back pain, unspecified whether [...] Description 10/18/2024 10:00 AM EDT Medication Management [facility] [address] [place] [address] Nelia Sullivan PharmD [address] [place] [address] documented as of this encounter Goals Goal [...] documented as of this encounter Care Teams Neon Sign Worker Relationship Specialty Start Date End Date Radha Jamison DO [address] [place] [address] PCP - General Family Medicine 01/26/12 Abdias Murillo PharmD [address] [place] [address] Pharmacist Internal Medicine 03/21/22 08/30/23 Nelia Sullivan PharmD [address] [place] [address] Pharmacist Internal Medicine 08/31/23 Laurel Monterroso Salesperson Women'S DressesOverhead Distribution Engineer 10/27/22 Saige Aguilar 09/26/23 documented as of this encounter
--- OUTSIDE RECORDS SUMMARY | 2024-10-15 03:06 | XMS_ITS | Encounter Summary ---
Author Organization [employer] Address [address] [facility] 7t [place] [address] Care Team Providers Care Potato Peeler Name Role Phone Radha Jamison DO Primary Care Provider [phone]- [phone] Nelia Sullivan PharmD Unavailable [phone] Reason for Visit * Reason Comments Med Refill Encounter Details Date Type Department Care Team ([facility] st Contact Info) Description 05/17/2024 Refill [facility]INE [address] [place] [address] Radha Jamison DO [address] [place] [address] Chronic bilateral low back pain, unspecified whether [...] the past 12 months, has t he [employer], gas, oil or water [employer] threatened to shut off services in your [...] Medication Management [facility] [address] [place] [address] PuiaFeliceNelia, PharmD [address] [place] [address] documented as of this encounter Goals Goal [...] documented as of this encounter Care Teams Potato Peeler Relationship Specialty Start Date End Date Radha Jamison DO [address] [place] [address] PCP - General Family Medicine 01/26/12 Nelia Sullivan PharmD [address] [place] [address] Pharmacist Internal Medicine 08/31/23 Laurel Monterroso Research Program CoordinatorCooker Operator 10/27/22 Saige Aguilar 09/26/23 documented as of this encounter
--- OUTSIDE RECORDS SUMMARY | 2024-10-15 03:06 | XMS_ITS | Encounter Summary ---
Author Organization [employer] Address [address] [facility] 7t [place] [address] Care Team Providers Care Ssis Ssrs Developer Name Role Phone Radha Jamison DO Primary Care Provider DelAbdias hardy PharmD Unavailable Unavail able Nelia Sullivan PharmD Unavailable Reason for Visit * Reason Comments Med Refill Encounter Details Date Type Department Care Team (Late st Contact Info) Description 01/24/2022 Telephone [facility] [address] [place], [place] [phone] Radha Jamison DO [address] [place] [address] Med Refill Social History Tobacco Use Types [...] 10:00 AM EDT Medication Management [facility]ICINE [address] [place] [address] Nelia Sullivan PharmD [address] [place] [address] documented as of this encounter Visit Diagnoses Diagnosis Chronic bilateral low back pain, unspecified whether sciatica present documented in this encounter Care Teams Ssis Ssrs Developer Relationship Specialty Start Date End Date Radha Jamison DO [address] [place] [address] PCP - General Family Medicine 01/26/12 Abdias Murillo PharmD [address] [place] [address] Pharmacist Internal Medicine 03/21/22 08/30/23 Nelia Sullivan, PharmD [address] [place] [address] Pharmacist Internal Medicine 08/31/23 Laurel Monterroso Hand SingerResource Paraprofessional 10/27/22 Saige Aguilar 09/26/23 documented as of this encounter
--- OUTSIDE RECORDS SUMMARY | 2024-10-15 03:06 | XMS_ITS | Encounter Summary ---
Author Organization [employer] Address [address] [facility] 7t [place] [address] Care Team Providers Care Development Technologist Name Role Phone Radha Jamison DO Primary Care Provider [phone] Abdias Murillo PharmD Unavailable Unavail able Nelia Sullivan PharmD Unavailable [phone] Reason for Visit * Reason Comments Med Refill Encounter Details Date Type Department Care Team (Late st Contact Info) Description 02/14/2023 Refill [facility] MEDICINE [address] [place] [address] Radha Jamison DO [address] [place] [address] Chronic bilateral low back pain, unspecified whether [...] Description 10/18/2024 10:00 AM EDT Medication Management [facility] [address] [place] [address] Nelia Sullivan PharmD [address] [place] [address] documented as of this encounter Goals Goal [...] documented as of this encounter Care Teams Development Technologist Relationship Specialty Start Date End Date Radha Jamison DO [address] [place] [address] PCP - General Family Medicine 01/26/12 Abdias Murillo PharmD [address] [place] [address] Pharmacist Internal Medicine 03/21/22 08/30/23 Nelia Sullivan PharmD [address] [place] [address] Pharmacist Internal Medicine 08/31/23 Laurel Monterroso Physician IndustrialDrapery And Upholstery Measurer 10/27/22 Saige Aguilar 09/26/23 documented as of this encounter
--- OUTSIDE RECORDS SUMMARY | 2024-10-15 03:06 | XMS_ITS | Encounter Summary ---
Author Organization [employer] Address 75 [facility] 7t [place] [address] Care Team Providers Care Retail Marketing Executive Name Role Phone Radha Jamison DO Primary Care Provider [phone]- [phone] Abdias Murillo PharmD Unavailable Unavail able Nelia Sullivan PharmD Unavailable [phone] Reason for Visit * Reason Onset Date Comments Appointment Request 03/09/2023 Encounter Details Date Type Department Care Team ([facility] st Contact Info) Description 03/09/2023 Telephone [facility] MEDICINE [address] [place] [address] Radha Jamison DO [address] [place] [address] Appointment Request Social History Tobacco Use Types [...] denied any concerns. Please contact pt at [phone] documented in this encounter Plan of Treatment Upcoming Encounters Date Type Department Care Team (Late st Contact Info) Description 10/18/2024 10:00 AM EDT Medication Management [facility] MEDICINE [address] [place] [address] Nelia Sullivan, PharmD [address] [place] [address] documented as of this encounter Goals Goal [...] documented as of this encounter Care Teams Retail Marketing Executive Relationship Specialty Start Date End Date Radha Jamison DO [address] [place] [address] PCP - General Family Medicine 01/26/12 Abdias Murillo, PharmD [address] [place] [address] Pharmacist Internal Medicine 03/21/22 08/30/23 Nelia Sullivan, PharmD [address] [place] [address] Pharmacist Internal Medicine 08/31/23 Laurel Monterroso Automatic Door MechanicProducts Mechanical Design Engineer 10/27/22 Saige Aguilar 09/26/23 documented as of this encounter
--- OUTSIDE RECORDS SUMMARY | 2024-10-15 03:06 | XMS_ITS | Encounter Summary ---
Author Organization [employer] Address 75 [facility] 7t [place] [address] Care Team Providers Care Casino Gaming Inspector Name Role Phone Radha Jamison DO Primary Care Provider DelAbdias hardy PharmD Unavailable Unavail able PuNelia cortes PharmD Unavailable [phone] Reason for Visit * Reason Comments Med Refill Encounter Details Date Type Department Care Team ([facility] Contact Info) Description 10/25/2022 Refill [facility] MEDICINE [address] [place] [address] Radha Jamison DO 230 [place] [address] Chronic bilateral low back pain, unspecified whether [...] Upcoming Encounters Date Type Department Care Team ([facility] Contact Info) Description 10/18/2024 10:00 AM EDT Medication Management [facility] MEDICINE [address] [place] [address] Puia, Nelia, PharmD [address] [place] [address] documented as of this encounter Goals Goal [...] documented as of this encounter Care Teams Casino Gaming Inspector Relationship Specialty Start Date End Date Radha Jamison DO [address] [place] [address] PCP - General Family Medicine 01/26/12 Abdias Murillo, Camron [address] [place] [address] Pharmacist Internal Medicine 03/21/22 08/30/23 Nelia Sullivan PharmD 230 [place] [address] Pharmacist Internal Medicine 08/31/23 Laurel Monterroso Mallet And Die CutterHeddler 10/27/22 Saige Aguilar 09/26/23 documented as of this encounter
--- OUTSIDE RECORDS SUMMARY | 2024-10-15 03:06 | XMS_ITS | Encounter Summary ---
Author Organization [employer] Address 75 [facility] 7t [place] [address] Care Team Providers Care Machine Shorthand Teacher Name Role Phone ShaheenRadha Primary Care Provider [phone] Abdias Murillo PharmD Unavailable Unavail able Nelia Sullivan PharmD Unavailable [phone] Reason for Visit * Reason Onset Date Comments Dental Exam 08/24/2023 Encounter Details Date Type Department Care Team (Late st Contact Info) Description 08/24/2023 Telephone [facility] AD[facility] D[facility]AL [address] [place] [address] AlanisLibby Barton, DDS [address] [place] [address] Dental Exam Social History Tobacco Use Types [...] Description 10/18/2024 10:00 AM EDT Medication Management [facility] MEDICINE [address] [place] [address] Nelia Sullivan PharmD [address] [place] [address] documented as of this encounter Goals Goal [...] documented as of this encounter Care Teams Machine Shorthand Teacher Relationship Specialty Start Date End Date Radha Jamison DO [address] [place] [address] PCP - General Family Medicine 01/26/12 Abdias Murillo, KeithD [address] [place] [address] Pharmacist Internal Medicine 03/21/22 08/30/23 Nelia Sullivan PharmD [address] [place] [address] Pharmacist Internal Medicine 08/31/23 Laurel Monterroso Cow TrimmerNut Roaster Helper 10/27/22 Saige Aguilar 09/26/23 documented as of this encounter
--- OUTSIDE RECORDS SUMMARY | 2024-10-15 03:06 | XMS_ITS | Encounter Summary ---
Author Organization [employer] Address 75 [facility] 7t [place] [address] Care Team Providers Care Linux Unix System Administrator Name Role Phone Radha Jamison DO Primary Care Provider [phone] Abdias Murillo PharmD Unavailable Unavail able Nelia Sullivan PharmD Unavailable [phone] Reason for Visit * Reason Comments Med Refill Encounter Details Date Type Department Care Team (Late st Contact Info) Description 02/15/2023 Refill [facility] MEDICINE 230 [place] [address] Radha Jamison DO 230 [place] [address] Chronic bilateral low back pain, unspecified whether [...] Description 10/18/2024 10:00 AM EDT Medication Management [facility] MEDICINE [address] [place] [address] Nelia Sullivan PharmD [address] [place] [address] documented as of this encounter Goals Goal [...] documented as of this encounter Care Teams Linux Unix System Administrator Relationship Specialty Start Date End Date Radha Jamison DO [address] [place] [address] PCP - General Family Medicine 01/26/12 Abdias Murillo PharmD [address] [place] [address] Pharmacist Internal Medicine 03/21/22 08/30/23 Nelia Sullivan PharmD [address] [place] [address] Pharmacist Internal Medicine 08/31/23 Laurel Monterroso Small Wind Energy InstallerCognos 10/27/22 Saige Aguilar 09/26/23 documented as of this encounter
--- OUTSIDE RECORDS SUMMARY | 2024-10-15 03:06 | XMS_ITS | Encounter Summary ---
Author Organization [employer] Address 75 [facility] 7t [place] [address] Care Team Providers Care Makeup Sales Advisor Name Role Phone KassandraRadha flores Primary Care Provider [phone] Abdias Murillo PharmD Unavailable Unavail able Nelia Sullivan PharmD Unavailable [phone] Reason for Visit * Reason Onset Date Comments Med Refill Appointment 05/15/2022 Re: her appt for today as [id number] @ 10:15 am. & No active phone # at this time. Encounter Details Date Type Department Care Team (Late st Contact Info) Description 05/15/2022 Refill [facility] MEDICINE 230 [place] [address] Abdias Murillo, PharmD Type 2 diabetes mellitus with other specified complication, with long-term current use of insulin ([facility] Social History Tobacco Use Types Packs/Day Years [...] pt regarding her appt for today as [id number] @ 10:15 am. And her phone # is not active at this time. documented in this encounter Plan of Treatment Upcoming Encounters Date Type Department Care Team (Late st Contact Info) Description 10/18/2024 10:00 AM EDT Medication Management [facility] MEDICINE [address] [place] [address] Nelia Sullivan PharmD [address] [place] [address] documented as of this encounter Goals Goal Patient Goal Type Associated Problems Recent Progress Patient-Stated? Author Hemoglobin A1c < 7 Result Component 10.1( 4:57 PM EDT) No Abdias Murillo, PharmD documented as of this encounter Visit Diagnoses Diagnosis Type 2 diabetes mellitus with other specified complication, with long-term current use of insulin ([facility]) documented in this encounter Additional Health Concerns Assessment Noted Time PHQ-9 Depression Total Score: 14 023 12:00 PM EST documented as of this encounter Care Teams Makeup Sales Advisor Relationship Specialty Start Date End Date Radha Jamison DO [address] [place] [address] PCP - General Family Medicine 01/26/12 Abdias Murillo, PharmD [address] [place] [address] Pharmacist Internal Medicine 03/21/22 08/30/23 Nelia Sullivan PharmD [address] [place] [address] Pharmacist Internal Medicine 08/31/23 Laurel Monterroso Drug And Alcohol CounsellorAcademic Support Center Director 10/27/22 Saige Aguilar 09/26/23 documented as of this encounter
--- OUTSIDE RECORDS SUMMARY | 2024-10-15 03:06 | XMS_ITS | Encounter Summary ---
Author Organization [employer] Address [address] [facility] [address] 7t [place] [address] Care Team Providers Care Risk Reduction Counselor Name Role Phone Radha Jamison DO Primary Care Provider Nelia Sullivan PharmD Unavailable [phone] Encounter Details Date Type Department Care Team ([facility] st Contact Info) Description 01/30/2024 Telephone [facility] [address] [place], [place] [phone] Radha Jamison DO 230 [facility] [place] [address] Social History Tobacco Use Types Packs/Day Years [...] 10:00 AM EDT Medication Management [facility] MEDICINE 230 [place] [address] Puia, Nelia, PharmD [address] [place] [address] documented as of this encounter Goals Goal [...] as of this encounter Care Teams Risk Reduction Counselor Relationship Specialty Start Date End Date Radha Jamison DO [address] [place] [address] PCP - General Family Medicine 01/26/12 Nelia Sullivan PharmD [address] [place] [address] Pharmacist Internal Medicine 08/31/23 Laurel Monterroso Blueprint ProcessorTrimmer Machine 10/27/22 Saige Aguilar 09/26/23 documented as of this encounter
--- OUTSIDE RECORDS SUMMARY | 2024-10-15 03:06 | XMS_ITS | Encounter Summary ---
Author Organization [employer] Address 75 [facility] 7t [place] [address] Care Team Providers Care Adult Family Home Program Manager Name Role Phone Radha Jamison DO Primary Care Provider DelAbdias hardy PharmD Unavailable Unavail able Nelia Sullivan PharmD Unavailable [phone] Reason for Visit * Reason Comments Med Refill Encounter Details Date Type Department Care Team ([facility] Contact Info) Description 11/10/2022 Refill [facility] MEDICINE [address] [place] [address] Radha Jamison DO [address] [place] [address] Chronic gastroesophageal reflux disease Social History Tobacco [...] Upcoming Encounters Date Type Department Care Team ([facility] Contact Info) Description 10/18/2024 10:00 AM EDT Medication Management [facility] MEDICINE 230 [place], [place] [phone] Nelia Sullivan PharmD [address] [place] [address] documented as of this encounter Goals Goal [...] documented as of this encounter Care Teams Adult Family Home Program Manager Relationship Specialty Start Date End Date Radha Jamison DO [address] [place] [address] PCP - General Family Medicine 01/26/12 Abdias Murillo, PharmD [address] [place] [address] Pharmacist Internal Medicine 03/21/22 08/30/23 Nelia Sullivan, PharmD [address] [place] [address] Pharmacist Internal Medicine 08/31/23 Laurel Monterroso Oceanographer PhysicalHub Associate 10/27/22 Saige Aguilar 09/26/23 documented as of this encounter
--- OUTSIDE RECORDS SUMMARY | 2024-10-15 03:06 | XMS_ITS | Encounter Summary ---
Author Organization [employer] Address 75 [facility] 7t [place] [address] Care Team Providers Care Dining Room Attendant Name Role Phone Radha Jamison DO Primary Care Provider Abdias Murillo PharmD Unavailable Unavail able Nelia Sullivan PharmD Unavailable [phone] Reason for Visit * Reason Comments Med Refill Encounter Details Date Type Department Care Team (Late Contact Info) Description 07/20/2022 Refill [facility] [address] [place] [address] Radha Jamison DO [address] [place] [address] Hypertension, unspecified type Social History Tobacco Use [...] Description 10/18/2024 10:00 AM EDT Medication Management [facility] MEDICINE [address] [place] [address] Nelia Sullivan PharmD [address] [place] [address] documented as of this encounter Goals Goal [...] documented as of this encounter Care Teams Dining Room Attendant Relationship Specialty Start Date End Date Radha Jamison DO [address] [place] [address] PCP - General Family Medicine 01/26/12 Abdias Murillo, PharmD [address] [place] [address] Pharmacist Internal Medicine 03/21/22 08/30/23 Nelia Sullivan, Camron [address] [place] [address] Pharmacist Internal Medicine 08/31/23 Laurel Monterroso Carding SupervisorJournal Clerk 10/27/22 Saige Aguilar 09/26/23 documented as of this encounter
--- OUTSIDE RECORDS SUMMARY | 2024-10-15 03:06 | XMS_ITS | Encounter Summary ---
Author Organization [employer] Address 75 [facility] 7t [place] [address] Care Team Providers Care Pharmacy Informatics Manager Name Role Phone Radha Jamison DO Primary Care Provider [phone] Nelia Sullivan PharmD Unavailable [phone] Reason for Visit * Reason Onset Date Comments Returning Call 01/17/2024 Hospital Follow-up 01/17/2024 Encounter Details Date Type Department Care Team ([facility] st Contact Info) Description 01/17/2024 Telephone [facility] 230 [place] [address] Radha Jamison DO [address] [place] [address] Returning Call ; Hospital Follow-up Social History [...] t he electric, gas, oil or water [employer] threatened to shut off services in your [...] Description 10/18/2024 10:00 AM EDT Medication Management [facility] [address] [place], [place] [phone] Nelia Sullivan, PharmD [address] [place], [place] [phone] documented as of this encounter Goals Goal Patient Goal Type Associated Problems Recent Progress Patient-Stated? Author Record your blood pressure once per day Blood Pressure No Nelia Sullivan, PharmD Blood Pressure < 140/90 Blood Pressure 140/80(2024 9:33 AM EDT) No Nelia Sullivan, PharmD Smoking cessation General No AnaiiaYazminsa, PharmD Patient will adhere to medication regimen [...] documented as of this encounter Care Teams Pharmacy Informatics Manager Relationship Specialty Start Date End Date Radha Jamison DO [address] [place] [address] PCP - General Family Medicine 01/26/12 Nelia Sullivan PharmD [address] [place] [address] Pharmacist Internal Medicine 08/31/23 Laurel Monterroso Senior Business Development ManagerIndustrial Education Instructor 10/27/22 Saige Aguilar 09/26/23 documented as of this encounter
--- OUTSIDE RECORDS SUMMARY | 2024-10-15 03:06 | XMS_ITS | Encounter Summary ---
Author Organization [employer] Address 75 [facility] 7t [place] [address] Care Team Providers Care Phlebotomy Instructor Name Role Phone Radha Jamison DO Primary Care Provider Abdias Murillo PharmD Unavailable Unavail able Nelia Sullivan PharmD Unavailable [phone] Reason for Visit * Reason Onset Date Comments Durable Medical Equipment 09/08/2022 Encounter Details Date Type Department Care Team (Late st Contact Info) Description 09/08/2022 Telephone [facility] MEDICINE [address] [place] [address] Radha Jamison DO [address] [place] [address] Durable Medical Equipment Social History Tobacco Use [...] is not working. Please contact pt at [phone] documented in this encounter Plan of Treatment Upcoming Encounters Date Type Department Care Team (Late st Contact Info) Description 10/18/2024 10:00 AM EDT Medication Management [facility] MEDICINE [address] [place] [address] Nelia Sullivan PharmD [address] [place] [address] documented as of this encounter Goals Goal [...] as of this encounter Care Teams Phlebotomy Instructor Relationship Specialty Start Date End Date Radha Jamison DO [address] [place] [address] PCP - General Family Medicine 01/26/12 Abdias Murillo, PharmD [address] [place] [address] Pharmacist Internal Medicine 03/21/22 08/30/23 Nelia Sullivan, PharmD [address] [place] [address] Pharmacist Internal Medicine 08/31/23 Laurel Monterroso Fire Prevention EngineerDonor Relations Manager 10/27/22 Saige Aguilar 09/26/23 documented as of this encounter
--- OUTSIDE RECORDS SUMMARY | 2024-10-15 03:06 | XMS_ITS | Encounter Summary ---
Author Organization [employer] Address 75 [facility] 7t [place] [address] Care Team Providers Care Volunteer Assistant Name Role Phone Radha Jamison DO Primary Care Provider [phone] Abdias Murillo PharmD Unavailable Unavail able Nelia Sullivan PharmD Unavailable [phone] Reason for Visit * Reason Comments Med Refill Encounter Details Date Type Department Care Team (Late st Contact Info) Description 04/14/2023 Refill [facility] MEDICINE 230 [place], [place] [phone] Radha Jamison DO 230 [place], [place] [phone] Type 2 diabetes mellitus with hyperglycemia, with long-term current use of insulin ([facility]) Social History [...] Description 10/18/2024 10:00 AM EDT Medication Management [facility] MEDICINE [address] [place] [address] Nelia Sullivan PharmD [address] [place] [address] documented as of this encounter Goals Goal Patient Goal Type Associated Problems Recent Progress Patient-Stated? Author Hemoglobin A1c < 7 Result Component 10.1( 5 4:57 PM EDT) No Abdias Murillo PharmD documented as of this encounter Visit Diagnoses Diagnosis Type 2 diabetes mellitus with hyperglycemia, with long-term current use of insulin ([facility]) documented in this encounter Additional Health Concerns Assessment Noted Time PHQ-9 Depression Total Score: 4 11/09/19 23 11:27 AM EDT documented as of this encounter Care Teams Volunteer Assistant Relationship Specialty Start Date End Date Radha Jamison DO [address] [place] [phone] PCP - General Family Medicine 01/26/12 Abdias Murillo PharmD [address] [place] [address] Pharmacist Internal Medicine 03/21/22 08/30/23 Nelia Sullivan PharmD [address] [place] [address] Pharmacist Internal Medicine 08/31/23 Laurel Monterroso Survey DirectorPlate Glass Installer 10/27/22 Saige Aguilar 09/26/23 documented as of this encounter
--- OUTSIDE RECORDS SUMMARY | 2024-10-15 03:06 | XMS_ITS | Encounter Summary ---
Author Organization [employer] Address 75 [facility] 7t [place] [address] Care Team Providers Care Quality Control Coordinator Name Role Phone Radha Jamison DO Primary Care Provider [phone] Abdias Murillo PharmD Unavailable Unavail able Nelia Sullivan PharmD Unavailable [phone] Reason for Visit * Reason Comments Med Refill Encounter Details Date Type Department Care Team (Late st Contact Info) Description 12/22/2022 Refill [facility] MEDICINE [address] [place] [address] Radha Jamison DO 230 [place] [address] Chronic bilateral low back pain, unspecified whether [...] Description 10/18/2024 10:00 AM EDT Medication Management [facility] MEDICINE [address] [place] [address] Nelia Sullivan PharmD 230 [place] [address] documented as of this encounter Goals Goal [...] documented as of this encounter Care Teams Quality Control Coordinator Relationship Specialty Start Date End Date Radha Jamison DO [address] [place] [address] PCP - General Family Medicine 01/26/12 Abdias Murillo PharmD [address] [place] [address] Pharmacist Internal Medicine 03/21/22 08/30/23 Nelia Sullivan PharmD [address] [place] [address] Pharmacist Internal Medicine 08/31/23 Laurel Monterroso Hotel ManagerTraffic Inspector 10/27/22 Saige Aguilar 09/26/23 documented as of this encounter
[2024-10-15] MEDS: Lactated Ringers 1,000 ML 999 ML IV (03:16)
--- NOTE | 2024-10-15 03:30 | ECG_ITS ---
Test Reason : CHEST PAIN Blood Pressure : */* mmHG Vent. Rate : 78 BPM Atrial Rate : 78 BPM P-R Int : 138 ms QRS Dur : 92 ms QT Int : 400 ms P-R-T Axes : 46 -8 270 degrees QTcB Int : 456 ms Normal sinus rhythm Moderate voltage criteria for LVH, may be normal variant ( R in aVL , [place] product ) Nonspecific ST and T wave abnormality Abnormal ECG When compared with ECG of 15-Oct-2024 02:11, Nonspecific T wave abnormality, worse in Inferior leads Referred By: Cornelia Clark Electronically Signed By: Ghanshyam Daniel
[2024-10-15] MEDS: Nitroglycerin 2 % Oint 1 GM Packet 1 INCH TRANSDERMA (03:33)
--- NOTE | 2024-10-15 03:49 | PC.NURSE ---
IVF stopped per verbal order from Dr. Clark.
[2024-10-15] MEDS: iohexoL 350 MG/ML 100 ML INFUS..BTL 70 ML IV (04:35)
[2024-10-15] MEDS: diazePAM 10 MG/2 ML CARTRIDGE 5 MG IVPUSH (05:15)
--- NOTE | 2024-10-15 07:01 | PC.NURSE ---
Dr Clark was in assessing patient and noted her O2 to be at 89% on room air. Dr. Clark applied O2 @ 1LNC to patient and O2 into mid 90s.
[2024-10-15 07:22] LABS: Glucose, Whole Blood 281 mg/dL (60-115)
--- NOTE | 2024-10-15 09:18 | MHC.CM.PN ---
Patient lives in an apartment with a Friend and she required no services nor DME MEND WORKER. Home/self care is the goal and CM has initiated and will follow for dc planning. PCP is from [facility] and Daughter/Margret is the HCP. Patient's Daughter or Son will transport to home at dc.
--- NOTE | 2024-10-15 10:20 | PHA.MEDREC ---
Pharmacy Consult ? Medication Reconciliation Pharmacy has completed the medication reconciliation. Spoke to patient with help from production supervisor off shift services. She states she doesn't know her medications and gave a list to broadcast operations manager, no list in patient's chart. She was just here on 08/28 and discharge list matches recent pharmacy claims. Pt recognized Eliquis which was started on last admission and confirmed Gabapentin that she takes it twice daily. Daughter may be able to bring in updated list, will change accordingly if she does.
--- NOTE | 2024-10-15 12:00 | PM.CNGS ---
History of Present Illness Consult details Consult date: 10/15/24 Narrative: Very pleasant 63-year-old female well known to us for history of peripheral vascular disease and had undergone right carotid endarterectomy with us back in 2002. She presented to the emergency room with headache and lower extremity pain left more so than right. She now presents to us for vascular follow-up. Review of Systems Review of Systems: Yes all other systems are reviewed and are negative Constitutional: Constitutional: Reports no additional constitutional complaints ENT: Reports Normal hearing present Cardiovascular: Cardiovascular: Denies chest pain, Denies chest pain at rest, Denies chest pain with activity and Denies pedal edema Respiratory: Respiratory: Denies cough Gastrointestinal: Gastrointestinal: Denies abdominal pain Musculoskeletal: Musculoskeletal: Denies abnormal gait, Denies muscle cramps and Denies radiating pain into limb Integumentary/Breasts: Skin/Breast: Denies skin ulcer and Denies wounds Neurologic: Reports Normal hearing present and Denies abnormal gait Psychiatric: Psychiatric: Reports no additional psychiatric complaints PMFSH Past Medical History Medical History Chronic anemia NSTEMI (non-ST elevated myocardial infarction) Mild aortic valve stenosis LORE (obstructive sleep apnea) Chronic low back pain Lumbar spinal stenosis HTN (hypertension) Vitamin D deficiency HLD (hyperlipidemia) T2DM (type 2 diabetes mellitus) H. pylori infection CAD (coronary artery disease) Cyst (solitary) of breast Kidney calculi Arthritis Asthma HTN (hypertension) Diabetes Family History Family History Mother Diabetes Liver cancer Surgical History Surgical History History of right-sided carotid endarterectomy (~11/2022) S/P aortogram History of esophagogastroduodenoscopy (EGD) Hx of colonoscopy History of breast surgery History of cardiac cath Social History Social History Household Members: Family and Children Household Members Other:: friend and adult son Housing: House Are you a primary health care social worker to a significant other at home: No Do you presently have visiting nurse or other home services: Yes (RN 2x/week) Alcohol intake: never Comment: refuses bed alarm Patient Tobacco Use Status: Never used Tobacco Tobacco use type: Cigarette Cigarette Packs Per Day: 1 Years Smoked: 30 Smoked in Last 30 Days: Yes e-Cigarette/Vaping Use: Currently Using Second Hand Smoke Exposure: Yes Use of substances other than those prescribed or required for medical reasons: No Advance Directives: Yes Advance Directives on File: Yes Advance Directives Date on File: 09/26/23 service: No Current occupational status: unemployed and disabled Meds Allergies Allergy/AdvReac Type Severity Reaction Status Date / Time latex (LATEX) Allergy Severe RASH Verified 10/15/24 02:06 naproxen (From NAPROSYN) AdvReac Intermediate TACHYCARDIA Verified 10/15/24 02:06 Active Medications: Current Medications Acetaminophen (Acetaminophen 325 Mg Tablet) 650 mg PO Q6H PRN PRN Reason: Pain, Mild 1-3,fever,headache Last Admin: 10/15/24 11:08 Dose: 650 mg Calcium Carbonate (Calcium Carbonate 750 Mg Tab.Chew) 750 mg PO Q4H PRN PRN Reason: Heartburn Dextrose (Dextrose 50 % 25 Gm/50 Ml Syringe) 25 gm IVPUSH Q15M PRN; Protocol PRN Reason: per Hypoglycemia Standing Ord. Glucose (Glucose Gel 15 Gm Gel..Gram.) 15 gm PO Q15M PRN; Protocol PRN Reason: per Hypoglycemia Standing Ord. Insulin Human Lispro (Insulin Lispro 100 Unit/Ml 3 Ml Vial) 0 unit SUBCUT [facility]; Protocol Last Admin: 10/15/24 08:17 Dose: 6 unit Magnesium Hydroxide (Milk Of Magnesia 30 Ml Oral.Susp) 30 ml PO DAILY PRN PRN Reason: Constipation Melatonin (Melatonin 3 Mg Tablet) 6 mg PO BEDTIME PRN PRN Reason: Insomnia Sodium Chloride (0.9 % Sodium Chloride Flush 3 Ml Syringe) 3 ml IVFLUSH [facility] Home Medications ?Medication ?Instructions ?Recorded ?Confirmed ?Last Taken ?Type aspirin 81 mg tablet,delayed 81 mg PO DAILY 01/02/20 10/15/24 08/26/24 History release (Adult Low Dose Aspirin) atorvastatin 80 mg tablet (Lipitor) 80 mg PO BEDTIME 01/02/20 10/15/24 08/25/24 History escitalopram oxalate 20 mg tablet 20 mg PO DAILY@1800 01/02/20 10/15/24 08/25/24 History (Lexapro) mirtazapine 45 mg tablet 45 mg PO BEDTIME 01/02/20 10/15/24 08/25/24 History multivitamin 1 tab PO DAILY 01/02/20 10/15/24 08/26/24 History blood sugar diagnostic (FreeStyle #10 ea 03/30/21 08/08/24 10/24/23 History Lite Strips) insulin degludec 100 unit/mL (3 14 unit subcut DAILY 10/03/22 10/15/24 08/26/24 History mL) subcutaneous pen (Tresiba FlexTouch U-100 insulin) docusate sodium 100 mg capsule 100 mg PO BID 01/30/24 10/15/24 08/26/24 History ezetimibe 10 mg tablet 10 mg PO DAILY 04/11/24 10/15/24 08/26/24 History amitriptyline 50 mg tablet 50 mg PO BEDTIME 08/08/24 10/15/24 08/25/24 History empagliflozin 12.5 mg-metformin 1 tab PO BID 08/08/24 10/15/24 08/26/24 History 1,000 mg tablet (Synjardy) gabapentin 600 mg tablet 600 mg PO BID 08/08/24 10/15/24 08/26/24 History hydrochlorothiazide 50 mg tablet 50 mg PO DAILY 08/08/24 10/15/24 08/26/24 History acetaminophen 650 mg 650 mg PO Q8H 08/27/24 10/15/24 08/26/24 History tablet,extended release albuterol sulfate 90 mcg/actuation 2 puff inhalation Q6H PRN 08/27/24 10/15/24 Unknown History aerosol inhaler (Ventolin HFA) Shortness Of Breath Or Wheezing ferrous sulfate 325 mg (65 mg 325 mg PO BID PRN Iron Levels 08/27/24 10/15/24 Unknown History iron) tablet fluticasone propionate 50 2 spray intranasal DAILY 08/27/24 10/15/24 08/26/24 History mcg/actuation nasal spray,suspension isosorbide mononitrate 30 mg 30 mg PO DAILY 08/27/24 10/15/24 08/26/24 History tablet,extended release 24 hr lisinopril 40 mg tablet 40 mg PO DAILY 08/27/24 10/15/24 08/26/24 History loratadine 10 mg tablet 10 mg PO DAILY 08/27/24 10/15/24 08/26/24 History mometasone 100 mcg/actuation HFA 2 puff inhalation BID 08/27/24 10/15/24 08/26/24 History aerosol inhaler (Asmanex HFA) nicotine (polacrilex) 2 mg buccal 2 mg PO Q1-2H PRN Nicotine Cravings 08/27/24 10/15/24 Unknown History lozenge omeprazole 20 mg capsule,delayed 40 mg PO BIDWM@0800,1700 08/27/24 10/15/24 08/26/24 History release semaglutide 0.25 mg or 0.5 mg (2 0.5 mg subcut FR 08/27/24 10/15/24 10/11/24 History mg/3 mL) subcutaneous pen injector (Ozempic) clopidogrel 75 mg tablet 75 mg PO DAILY 10/15/24 10/15/24 Unknown History telmisartan 80 mg tablet 80 mg PO DAILY 10/15/24 10/15/24 Unknown History Physical Exam Vital Signs: Vital Signs: Last Vital Signs Temp 97.9 F 10/15/24 10:41 Pulse 75 10/15/24 10:41 Resp 16 10/15/24 10:41 BP 144/60 H 10/15/24 10:41 Pulse Ox 97 10/15/24 10:41 O2 Del Method Room Air 10/15/24 10:41 O2 Flow Rate 1 10/15/24 07:06 BMI result Body Mass Index 26.4 Const: General: cooperative, healthy appearing and comfortable Orientation/consciousness: oriented to person, oriented to place and oriented to time HEENT: Head: Yes normal to inspection Neck: Neck: Yes normal visual inspection Carotids: no bruits Chest: Chest palpation & inspection: normal inspection of the chest Resp: Effort & Inspection: normal respiratory effort and able to speak in complete sentences Auscultation: clear to auscultation bilaterally, no crackles, no rales, no rhonchi and no wheezes Cardio: Other: Left lower extremity palpable dorsalis pedis pulse Rate: regular rate Rhythm: regular rhythm Heart sounds: S1 normal heart sound present and S2 normal heart sound present Bruits: no carotid bruits Peripheral pulses: Peripheral pulses 2+ throughout GI: Inspection: Yes normal to inspection Skin: Wounds: no wounds Hair: normal Neuro: General: oriented to person, oriented to place and oriented to time Cranial nerves: Yes CN's II-XII intact bilaterally and Yes Normal hearing present Cognition (Neuro): normal cognition Motor exam (neuro): 5/5 motor strength present throughout Extrem: Other: venous exam: No significant superficial varicosities or spider telangiectasias, minimal edema General: No clubbing, No cyanosis and No edema Psych: Appearance: grossly normal Mental Status: mental status grossly normal Speech and movement: Normal speech and movement present Results Labs 10/15/24 02:37 10/15/24 02:37 Labs: Abnormal lab results 10/15/24 10/15/24 Range/Units 02:37 07:16 RBC 3.60 L (4.20-5.50) X10*6/uL Hgb 10.5 L (12.0-16.0) g/dl Hct 31.0 L (37.0-47.0) % Eos % (Auto) 4.5 H (0-4) % BUN 23 H (9-16) mg/dL POC Glucose 281 H (60-115) mg/dL Random Glucose 399 H* (60-115) mg/dL Calcium 8.2 L (8.4-10.2) mg/dL Total Protein 5.5 L (6.5-8.0) g/dL Albumin 2.7 L (3.5-5.0) g/dL Short CBC 10/15/24 Range/Units 02:37 WBC 6.9 (4.8-10.8) X10*3/uL Hgb 10.5 L (12.0-16.0) g/dl Hct 31.0 L (37.0-47.0) % Plt Count 284 (160-400) X10*3/uL BMP 10/15/24 02:37 Sodium 140 Potassium 3.9 Chloride 107 Carbon Dioxide 25 BUN 23 H Creatinine 1.09 Calcium 8.2 L Liver Function 10/15/24 Range/Units 02:37 Total Bilirubin 0.2 (0.0-1.0) mg/dL AST 14 (5-31) U/L ALT 7 (0-31) U/L Alkaline Phosphatase 97 (39-117) U/L Albumin 2.7 L (3.5-5.0) g/dL All other labs normal. Assessment and Plan (1) Bilateral carotid artery stenosis: Status: Acute In short patient has bilateral carotid stenosis. Right side appears to be stable on CAT scan. I do think that the dissection might be a bit of an over read but does look stable for postoperative changes since 2022. Think more concerning portion is the left carotid. It is at 85% stenosis. This does need to be worked up and she may require left carotid endarterectomy. At the current time we will require hypertension control and medical management. This does not appear to be an acute issue and I do not believe her headache is related to this. We will continue to follow with you. She will continue on aspirin Plavix and high-dose statin. (2) PAD (peripheral artery disease): Status: Acute Plan Current time has palpable left posterior tibial pulse. I do not believe that her pain is arterial in origin. We will continue to monitor her status in the hospital with you. Procedures Date of Service Date of Service: 10/15/24
[2024-10-15 12:55] LABS: Glucose, Whole Blood 129 mg/dL (60-115)
--- NOTE | 2024-10-15 13:38 | PM.IMHP ---
History of Present Illness Date of Service: 10/15/24 Attending physician on admission: Alan Lopez Chief Complaint: Headache, low back pain 63-year-old female with CAD, PAD, T2 DM, HTN, HLD, prior right carotid endarterectomy 2002, recent large splenic infarct on apixaban, presents with bitemporal headache, low back pain and chronic bilateral lower extremity pain which awoke her from sleep. Patient reports having fallen asleep last night without complaint or issue. She was awoken from sleep with complaints of severe headache frontal/bitemporal. She also noted a new sharp stabbing lower back pain ongoing with a headache (nonradiating). She has complaints of bilateral lower extremity pain which is chronic in nature, however had exacerbated when she was awoken from sleep. Patient denies vision changes, loss of vision, slurred speech, hemiparesis, hemiplegia. Denies chest pain, chest pressure, dyspnea, diaphoresis. Denies nausea, vomiting, diarrhea. Denies fevers chills or shakes. Denies new rashes. Reports compliance with her medications ED MANAGEMENT ECG performed, unremarkable changes from prior. Noted to be hypertensive on evaluation. 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 Vascular surgery was consulted. Also revealing severe stenosis of left common carotid artery. Patient received morphine, nitroglycerin, hydralazine, Valium and Dilaudid, with improvement in her headache and blood pressure. Review of Systems Review of Systems: Yes all other systems are reviewed and are negative [facility] Medical History Chronic anemia NSTEMI (non-ST elevated myocardial infarction) Mild aortic valve stenosis LORE (obstructive sleep apnea) Chronic low back pain Lumbar spinal stenosis HTN (hypertension) Vitamin D deficiency HLD (hyperlipidemia) T2DM (type 2 diabetes mellitus) H. pylori infection CAD (coronary artery disease) Cyst (solitary) of breast Kidney calculi Arthritis Asthma HTN (hypertension) Diabetes Family History Mother Diabetes Liver cancer Surgical History History of right-sided carotid endarterectomy (~11/2022) S/P aortogram History of esophagogastroduodenoscopy (EGD) Hx of colonoscopy History of breast surgery History of cardiac cath Social History Household Members: Family and Children Household Members Other:: friend and adult son Housing: House Are you a primary healthcare manager to a significant other at home: No Do you presently have visiting nurse or other home services: Yes (RN 2x/week) Alcohol intake: never Comment: refuses bed alarm Patient Tobacco Use Status: Never used Tobacco Tobacco use type: Cigarette Cigarette Packs Per Day: 1 Years Smoked: 30 Smoked in Last 30 Days: Yes e-Cigarette/Vaping Use: Currently Using Second Hand Smoke Exposure: Yes Use of substances other than those prescribed or required for medical reasons: No Advance Directives: Yes Advance Directives on File: Yes Advance Directives Date on File: 09/26/23 service: No Current occupational status: unemployed and disabled Meds Allergies Allergy/AdvReac Type Severity Reaction Status Date / Time latex (LATEX) Allergy Severe RASH Verified 10/15/24 02:06 naproxen (From NAPROSYN) AdvReac Intermediate TACHYCARDIA Verified 10/15/24 02:06 Active Medications: Current Medications Acetaminophen (Acetaminophen 325 Mg Tablet) 650 mg PO Q6H PRN PRN Reason: Pain, Mild 1-3,fever,headache Last Admin: 10/15/24 11:08 Dose: 650 mg Calcium Carbonate (Calcium Carbonate 750 Mg Tab.Chew) 750 mg PO Q4H PRN PRN Reason: Heartburn Dextrose (Dextrose 50 % 25 Gm/50 Ml Syringe) 25 gm IVPUSH Q15M PRN; Protocol PRN Reason: per Hypoglycemia Standing Ord. Glucose (Glucose Gel 15 Gm Gel..Gram.) 15 gm PO Q15M PRN; Protocol PRN Reason: per Hypoglycemia Standing Ord. Insulin Human Lispro (Insulin Lispro 100 Unit/Ml 3 Ml Vial) [facility]; Protocol Last Admin: 10/15/24 12:54 Dose: Not Given Magnesium Hydroxide (Milk Of Magnesia 30 Ml Oral.Susp) 30 ml PO DAILY PRN PRN Reason: Constipation Melatonin (Melatonin 3 Mg Tablet) 6 mg PO BEDTIME PRN PRN Reason: Insomnia Sodium Chloride (0.9 % Sodium Chloride Flush 3 Ml Syringe) 3 ml IVFLUSH [facility] Home Medications ?Medication ?Instructions ?Recorded ?Confirmed ?Last Taken ?Type aspirin 81 mg tablet,delayed 81 mg PO DAILY 01/02/20 10/15/24 08/26/24 History release (Adult Low Dose Aspirin) atorvastatin 80 mg tablet (Lipitor) 80 mg PO BEDTIME 01/02/20 10/15/24 08/25/24 History escitalopram oxalate 20 mg tablet 20 mg PO DAILY@1800 01/02/20 10/15/24 08/25/24 History (Lexapro) mirtazapine 45 mg tablet 45 mg PO BEDTIME 01/02/20 10/15/24 08/25/24 History multivitamin 1 tab PO DAILY 01/02/20 10/15/24 08/26/24 History blood sugar diagnostic (FreeStyle #10 ea 03/30/21 08/08/24 10/24/23 History Lite Strips) insulin degludec 100 unit/mL (3 14 unit subcut DAILY 10/03/22 10/15/24 08/26/24 History mL) subcutaneous pen (Tresiba FlexTouch U-100 insulin) docusate sodium 100 mg capsule 100 mg PO BID 01/30/24 10/15/24 08/26/24 History ezetimibe 10 mg tablet 10 mg PO DAILY 04/11/24 10/15/24 08/26/24 History amitriptyline 50 mg tablet 50 mg PO BEDTIME 08/08/24 10/15/24 08/25/24 History empagliflozin 12.5 mg-metformin 1 tab PO BID 08/08/24 10/15/24 08/26/24 History 1,000 mg tablet (Synjardy) gabapentin 600 mg tablet 600 mg PO BID 08/08/24 10/15/24 08/26/24 History hydrochlorothiazide 50 mg tablet 50 mg PO DAILY 08/08/24 10/15/24 08/26/24 History acetaminophen 650 mg 650 mg PO Q8H 08/27/24 10/15/24 08/26/24 History tablet,extended release albuterol sulfate 90 mcg/actuation 2 puff inhalation Q6H PRN 08/27/24 10/15/24 Unknown History aerosol inhaler (Ventolin HFA) Shortness Of Breath Or Wheezing ferrous sulfate 325 mg (65 mg 325 mg PO BID PRN Iron Levels 08/27/24 10/15/24 Unknown History iron) tablet fluticasone propionate 50 2 spray intranasal DAILY 08/27/24 10/15/24 08/26/24 History mcg/actuation nasal spray,suspension isosorbide mononitrate 30 mg 30 mg PO DAILY 08/27/24 10/15/24 08/26/24 History tablet,extended release 24 hr lisinopril 40 mg tablet 40 mg PO DAILY 08/27/24 10/15/24 08/26/24 History loratadine 10 mg tablet 10 mg PO DAILY 08/27/24 10/15/24 08/26/24 History mometasone 100 mcg/actuation HFA 2 puff inhalation BID 08/27/24 10/15/24 08/26/24 History aerosol inhaler (Asmanex HFA) nicotine (polacrilex) 2 mg buccal 2 mg PO Q1-2H PRN Nicotine Cravings 08/27/24 10/15/24 Unknown History lozenge omeprazole 20 mg capsule,delayed 40 mg PO BIDWM@0800,1700 08/27/24 10/15/24 08/26/24 History release semaglutide 0.25 mg or 0.5 mg (2 0.5 mg subcut FR 08/27/24 10/15/24 10/11/24 History mg/3 mL) subcutaneous pen injector (Ozempic) clopidogrel 75 mg tablet 75 mg PO DAILY 10/15/24 10/15/24 Unknown History telmisartan 80 mg tablet 80 mg PO DAILY 10/15/24 10/15/24 Unknown History Physical Exam Vital Signs and Narrative: Vital Signs: Last Vital Signs Temp 97.9 F 10/15/24 10:41 Pulse 75 10/15/24 10:41 Resp 16 10/15/24 10:41 BP 144/60 H 10/15/24 10:41 Pulse Ox 97 10/15/24 10:41 O2 Del Method Room Air 10/15/24 10:41 O2 Flow Rate 1 10/15/24 07:06 BMI result Body Mass Index 26.4 General: A&O x3, oriented to time place person and situation, comfortable, no pain Cardiac: S1, S2 auscultated with no S3/4, no MRG. Well perfused. Respiratory: Normal breath sounds auscultated throughout all lung zones, without wheezing, rales. Normal rate. GI/ : No abdominal pain on palpation, no masses or distentions. MSK: Normal ambulation without pain at bony prominences or musculature Neurological: Normal neurological examination on overview, without obvious CN II-XII abnormalities. Results Labs 10/15/24 02:37 10/15/24 02:37 Labs: Laboratory Results - last 24 hr 10/15/24 10/15/24 10/15/24 02:37 07:16 12:52 MCV 86.1 MCH 29.2 MCHC 33.9 RDW 14.2 Plt Count 284 MPV 9.5 Immature Gran % (Auto) 0.3 Neut % (Auto) 61.8 Lymph % (Auto) 25.7 [place] % (Auto) 7.1 Eos % (Auto) 4.5 H Baso % (Auto) 0.6 Lymph # (Auto) 1.8 [place] # (Auto) 0.5 Eos # (Auto) 0.3 Baso # (Auto) 0.0 Abs Immat Gran (auto) 0.02 Absolute Neuts (auto) 4.2 Absolute Nucleated RBC 0.000 Nucleated RBC % (auto) 0.0 Anion Gap 12 Estim Creat Clear Calc 43.7 Estimated GFR 51 POC Glucose 281 H 129 H Random Glucose 399 H* Calcium 8.2 L Magnesium 2.0 Total Bilirubin 0.2 AST 14 ALT 7 Alkaline Phosphatase 97 Total Protein 5.5 L Albumin 2.7 L Assessment and Plan (1) HTN (hypertension): Qualifiers: Hypertension type: resistant hypertension Qualified Code(s): I1A.0 - Resistant hypertension Status: Acute (2) Hypertensive emergency: Status: Resolved (3) Headache, migraine: Qualifiers: Migraine type: unspecified Status: Acute (4) Splenic infarct: Status: Resolved (5) Poor compliance with medication: Status: Inactive Plan 63-year-old female with CAD, PAD, T2 DM, HTN, HLD, prior right carotid endarterectomy 2002, recent large splenic infarct on apixaban, presents with bitemporal headache, low back pain and chronic bilateral lower extremity pain which awoke her from sleep, admitted with hypertensive emergency in the setting of severe bilateral carotid artery stenosis. Hypertensive emergency Bitemporal headache PLAN - carvedilol 25 mg b.i.d. p.o. - hydrochlorothiazide 50 mg OD p.o. - Imdur 30 mg OD p.o. ER - lisinopril 40 mg OD p.o. Severe bilateral carotid artery stenosis Right carotid endarterectomy 2002 Peripheral arterial disease - possible dissecting right carotid identified on imaging. Vascular surgery has reviewed, and seems similar to postoperative changes 2022. - 85% left common carotid artery stenosis. PLAN - antihypertensive control - aspirin - apixaban 5 mg b.i.d. - hold Plavix - vascular recommendations greatly appreciated - echocardiogram - bilateral carotid ultrasonography Lower back pain Lumbar spinal stenosis Large splenic infarct on apixaban Follows hematology oncology. Goal to continue apixaban for 6 months total (started 09/06) If no resolution of lower back pain, consider reimaging abdomen with CT AP QUALITY [employer] - VTE: Apixaban 5 mg b.i.d. - CODE STATUS: Full code - DIET: Diabetic Quality Stroke Does the patient have a stroke diagnosis?: No VTE Prior VTE?: No VTE Risk Level:: Medical - moderate - high VTE Device Contraindication: Treatment Not Indicated VTE Drug Contraindication: N/A - Med Ordered
[2024-10-15] MEDS: Aspirin Enteric Coated 81 MG TABLET.DR PO (15:02)
--- NOTE | 2024-10-15 15:22 | PC.NURSE ---
Access Services Representative at bedside. Pt expressed desire to go home. RN explained that her pressures were very high. Physical therapy would not work with her r/t her high blood pressures. Her medications were explained to her. Some of them were new to her, but she was agreeable to take them. Pt is ambulating independently to bathroom. Pt has slept much of the day. C/O headache, states that it is probably from lying in bed too much.
[2024-10-15] MEDS: 0.9 % Sodium Chloride Flush 3 ML SYRINGE IVFLUSH (15:33)
[2024-10-15 17:20] LABS: Glucose, Whole Blood 180 mg/dL (60-115)
[2024-10-15] MEDS: Nicotine 7 MG PATCH.TD24 TRANSDERMA (19:02)
[2024-10-15 20:43] LABS: Glucose, Whole Blood 287 mg/dL (60-115)
[2024-10-16] VITALS (7 sets, daily range): BP systolic 115–163; BP diastolic 56–69; PULSE 64–72; RESP 16–20; TEMP 36.1–36.8; O2SAT 92–97
[2024-10-16] MEDS: 0.9 % Sodium Chloride Flush 3 ML SYRINGE IVFLUSH ×4 (00:56→20:12)
[2024-10-16 07:27] LABS: Glucose, Whole Blood 175 mg/dL (60-115)
[2024-10-16 07:56] LABS: MANUAL DIFF FLAG NO
[2024-10-16 08:08] LABS: Hematocrit 29.9 % (37.0-47.0); Hemoglobin 9.6 g/dl (12.0-16.0); Imm Gran Abs Auto 0.03 X10*3/uL (0.00-0.03); Imm Gran Pct Auto 0.4 % (0.0-0.4); Lymphocytes Absolute Auto 1.9 X10*3/uL (1.2-4.9); Mean Corpuscular HGB Conc 32.1 g/dl (31.0-35.0); Mean Corpuscular Hemoglobin 28.4 pg (27.0-33.0); Mean Corpuscular Volume 88.5 fL (80.0-98.0); NRBC Abs Auto 0.000 X10*3/uL (0.0-0.012); NRBC Pct Auto 0.0 /100WBC (0.0-0.2); Platelet Count 276 X10*3/uL (160-400); Red Blood Count 3.38 X10*6/uL (4.20-5.50); White Blood Count 6.7 X10*3/uL (4.8-10.8)
[2024-10-16] MEDS: Aspirin Enteric Coated 81 MG TABLET.DR PO (08:10)
[2024-10-16] MEDS: Nicotine 7 MG PATCH.TD24 TRANSDERMA (08:11)
[2024-10-16 08:20] LABS: Anion Gap 10 (12-20); Blood Urea Nitrogen 30 mg/dL (9-16); Calcium 7.8 mg/dL (8.4-10.2); Carbon Dioxide 26 mmol/L (22-29); Chloride 108 mmol/L (96-108); Creatinine Clr Calc Pharmacy 42.8; Estimated Glomerular Filt Rate 46; Potassium 4.5 mmol/L (3.3-5.1); Sodium 139 mmol/L (135-145)
[2024-10-16 11:24] LABS: Glucose, Whole Blood 152 mg/dL (60-115)
--- NOTE | 2024-10-16 12:36 | HO.VASCPN ---
Subjective Subjective Date of Service: 10/16/24 Patient reports: no new complaints and feels better Interval history: Patient seen and examined. No significant events overnight. Doing relatively well. Current time blood pressure appears to be significantly better controlled. Pain in left leg appears to be improved. She complains of incisional discomfort which is quite unusual at this far late stage from the surgery. She continues to have no other lower extremity issues from a functional standpoint Physical Exam Vital Signs: Vital Signs: Last Vital Signs Temp 98.2 F 10/16/24 11:15 Pulse 67 10/16/24 11:15 Resp 18 10/16/24 11:15 BP 115/56 L 10/16/24 11:15 Pulse Ox 96 10/16/24 11:15 O2 Del Method Room Air 10/16/24 11:15 O2 Flow Rate 1 10/16/24 00:00 BMI result Body Mass Index 29.6 Const: General: cooperative, healthy appearing and comfortable Orientation/consciousness: oriented to person, oriented to place and oriented to time HEENT: Head: Yes normal to inspection Neck: Neck: Yes normal visual inspection Carotids: no bruits Chest: Chest palpation & inspection: normal inspection of the chest Resp: Effort & Inspection: normal respiratory effort and able to speak in complete sentences Auscultation: clear to auscultation bilaterally, no crackles, no rales, no rhonchi and no wheezes Cardio: Rate: regular rate Rhythm: regular rhythm Heart sounds: S1 normal heart sound present and S2 normal heart sound present Bruits: no carotid bruits Peripheral pulses: Peripheral pulses 2+ throughout GI: Inspection: Yes normal to inspection Skin: Wounds: no wounds Hair: normal Neuro: General: oriented to person, oriented to place and oriented to time Cranial nerves: Yes CN's II-XII intact bilaterally and Yes Normal hearing present Cognition (Neuro): normal cognition Motor exam (neuro): 5/5 motor strength present throughout Extrem: Other: venous exam: No significant superficial varicosities or spider telangiectasias, minimal edema General: No clubbing, No cyanosis and No edema Psych: Appearance: grossly normal Mental Status: mental status grossly normal Speech and movement: Normal speech and movement present Progress Note: A&P Assessment and plan (1) Bilateral carotid artery stenosis: Status: Acute Assessment and Plan: In short patient has high-grade left carotid stenosis. We can address this an outpatient. Echo from August was noted and appears to be within normal limits. We did discuss risk factor modification and the importance of blood pressure control. Once again we will have her follow-up relatively quickly as an outpatient. Thank you for allowing us to assist in her care. Time Spent With Patient Time: Total time managing care of this patient today ____ minutes. Procedures Date of Service Date of Service: 10/16/24 Quality Stroke Does the patient have a stroke diagnosis?: No VTE Prior VTE?: No VTE Risk Level:: Medical - moderate - high VTE Device Contraindication: Treatment Not Indicated VTE Drug Contraindication: N/A - Med Ordered
--- NOTE | 2024-10-16 14:36 | HO.PM.IMPN ---
Subjective Subjective Date of Service: 10/16/24 Interval History: Feels much better today. Denies headache, back pain and lower extremity pains. Blood pressure much better controlled. Seen by vascular Service, with no plans for intervention at this time. Possible out patient intervention. Review of Systems Review of Systems: Yes all other systems are reviewed and are negative Physical Exam Exam: Exam: General: A&O x3, oriented to time place person and situation, comfortable, no pain Cardiac: S1, S2 auscultated with no S3/4, no MRG. Well perfused. Respiratory: Normal breath sounds auscultated throughout all lung zones, without wheezing, rales. Normal rate. GI/ : No abdominal pain on palpation, no masses or distentions. MSK: Normal ambulation without pain at bony prominences or musculature Neurological: Normal neurological examination on overview, without obvious CN II-XII abnormalities. Vital Signs: Vital Signs: Last Vital Signs Temp 98.2 F 10/16/24 11:15 Pulse 67 10/16/24 11:15 Resp 18 10/16/24 11:15 BP 115/56 L 10/16/24 11:15 Pulse Ox 96 10/16/24 11:15 O2 Del Method Room Air 10/16/24 11:15 O2 Flow Rate 1 10/16/24 00:00 BMI result Body Mass Index 29.6 Objective Data Active Medications Acetaminophen (Acetaminophen 325 Mg Tablet) 650 mg PO Q6H PRN PRN Reason: Pain, Mild 1-3,fever,headache Last Admin: 10/15/24 18:03 Dose: 650 mg Documented By: MORIAH Amitriptyline HCl (Amitriptyline Hcl 50 Mg Tablet) 50 mg PO BEDTIME [facility] Last Admin: 10/15/24 20:28 Dose: 50 mg Documented By: CLEO Apixaban (Apixaban 5 Mg Tablet) 5 mg PO BID [facility] Last Admin: 10/16/24 08:11 Dose: 5 mg Documented By: MORIAH Aspirin (Aspirin Enteric Coated 81 Mg Tablet.) 81 mg PO DAILY [facility] Last Admin: 10/16/24 08:10 Dose: 81 mg Documented By: MORIAH Atorvastatin Calcium (Atorvastatin Calcium 80 Mg Tablet) 80 mg PO BEDTIME [facility] Last Admin: 10/15/24 20:28 Dose: 80 mg Documented By: CLEO Calcium Carbonate (Calcium Carbonate 750 Mg Tab.Chew) 750 mg PO Q4H PRN PRN Reason: Heartburn Carvedilol (Carvedilol 25 Mg Tablet) 25 mg PO BID [facility]; Protocol Last Admin: 10/16/24 08:10 Dose: 25 mg Documented By: MORIAH Dextrose (Dextrose 50 % 25 Gm/50 Ml Syringe) 25 gm IVPUSH Q15M PRN; Protocol PRN Reason: per Hypoglycemia Standing Ord. Docusate Sodium (Docusate Sodium 100 Mg Capsule) 100 mg PO BID [facility] Last Admin: 10/16/24 08:11 Dose: 100 mg Documented By: MORIAH Ezetimibe (Ezetimibe 10 Mg Tablet) 10 mg PO DAILY [facility] Last Admin: 10/16/24 08:10 Dose: 10 mg Documented By: MORIAH Escitalopram Oxalate (Escitalopram Oxalate 20 Mg Tablet) 20 mg PO DAILY@1800 [facility] Last Admin: 10/15/24 18:01 Dose: 20 mg Documented By: MORIAH Fluticasone Propionate (Fluticasone Propionate Nasal 16 Gm [place]) 2 spray NOSTRIL-B DAILY [facility] Last Admin: 10/16/24 08:11 Dose: 2 spray Documented By: MORIAH Gabapentin (Gabapentin 600 Mg Tablet) 600 mg PO BID [facility] Last Admin: 10/16/24 08:11 Dose: 600 mg Documented By: MORIAH Glucose (Glucose Gel 15 Gm Gel..Gram.) 15 gm PO Q15M PRN; Protocol PRN Reason: per Hypoglycemia Standing Ord. Hydralazine HCl (Hydralazine Hcl 25 Mg Tablet) 25 mg PO TID [facility]; Protocol Last Admin: 10/16/24 08:10 Dose: 25 mg Documented By: MORIAH Hydrochlorothiazide (Hydrochlorothiazide 50 Mg Tablet) 50 mg PO DAILY [facility]; Protocol Last Admin: 10/16/24 08:10 Dose: 50 mg Documented By: MORIAH Insulin Human Lispro (Insulin Lispro 100 Unit/Ml 3 Ml Vial) 0 unit SUBCUT QIDACHS [facility]; Protocol Last Admin: 10/16/24 11:29 Dose: 2 unit Documented By: MORIAH Isosorbide Mononitrate (Isosorbide Mononitrate 30 Mg Tab.Er.24h) 30 mg PO DAILY [facility]; Protocol Last Admin: 10/16/24 08:10 Dose: 30 mg Documented By: MORIAH Lisinopril (Lisinopril 40 Mg Tablet) 40 mg PO DAILY [facility]; Protocol Last Admin: 10/16/24 08:10 Dose: 40 mg Documented By: MORIAH Magnesium Hydroxide (Milk Of Magnesia 30 Ml Oral.Susp) 30 ml PO DAILY PRN PRN Reason: Constipation Melatonin (Melatonin 3 Mg Tablet) 6 mg PO BEDTIME PRN PRN Reason: Insomnia Nicotine (Nicotine 7 Mg Patch.Td24) 7 mg TRANSDERMA DAILY [facility] Last Admin: 10/16/24 08:11 Dose: 7 mg Documented By: MORIAH Sodium Chloride (0.9 % Sodium Chloride Flush 3 Ml Syringe) 3 ml IVFLUSH QSHIFT [facility] Last Admin: 10/16/24 08:11 Dose: 3 ml Documented By: MORIAH Labs 10/16/24 07:21 10/16/24 07:21 Labs: Laboratory Results - last 24 hr 10/15/24 10/15/24 10/16/24 17:12 20:28 07:14 MCV MCH MCHC RDW Plt Count MPV Immature Gran % (Auto) Neut % (Auto) Lymph % (Auto) [place] % (Auto) Eos % (Auto) Baso % (Auto) Lymph # (Auto) [place] # (Auto) Eos # (Auto) Baso # (Auto) Abs Immat Gran (auto) Absolute Neuts (auto) Absolute Nucleated RBC Nucleated RBC % (auto) Anion Gap Estim Creat Clear Calc Estimated GFR POC Glucose 180 H 287 H 175 H Random Glucose Calcium 10/16/24 10/16/24 07:21 11:16 MCV 88.5 MCH 28.4 MCHC 32.1 RDW 14.3 Plt Count 276 MPV 9.8 Immature Gran % (Auto) 0.4 Neut % (Auto) 61.0 Lymph % (Auto) 28.0 [place] % (Auto) 6.3 Eos % (Auto) 3.7 Baso % (Auto) 0.6 Lymph # (Auto) 1.9 [place] # (Auto) 0.4 Eos # (Auto) 0.3 Baso # (Auto) 0.0 Abs Immat Gran (auto) 0.03 Absolute Neuts (auto) 4.1 Absolute Nucleated RBC 0.000 Nucleated RBC % (auto) 0.0 Anion Gap 10 L Estim Creat Clear Calc 42.8 Estimated GFR 46 POC Glucose 152 H Random Glucose 172 H Calcium 7.8 L Assessment and Plan (1) Nonadherence to medication: Status: Acute (2) HTN (hypertension): Status: Acute (3) Hypertensive crisis: Status: Acute (4) CAD (coronary artery disease): Status: Acute (5) Uncontrolled diabetes mellitus: Status: Acute (6) Lumbosacral spondylosis: Status: Acute (7) Headache, migraine: Status: Acute Plan 63-year-old female with CAD, PAD, T2 DM, HTN, HLD, prior right carotid endarterectomy 2002, recent large splenic infarct on apixaban, presents with bitemporal headache, low back pain and chronic bilateral lower extremity pain which awoke her from sleep, admitted with hypertensive emergency in the setting of severe bilateral carotid artery stenosis. Hypertensive emergency Bitemporal headache Resolved PLAN - hydralazine 25 mg t.i.d. was started - carvedilol 25 mg b.i.d. p.o. - hydrochlorothiazide 50 mg OD p.o. - Imdur 30 mg OD p.o. ER - lisinopril 40 mg OD p.o. Severe bilateral carotid artery stenosis Right carotid endarterectomy 2002 Peripheral arterial disease - possible dissecting right carotid identified on imaging. Vascular surgery has reviewed, and seems similar to postoperative changes 2022. - 85% left common carotid artery stenosis. PLAN - antihypertensive control - aspirin - apixaban 5 mg b.i.d. - hold Plavix - vascular recommendations greatly appreciated - echocardiogram - bilateral carotid ultrasonography Lower back pain Lumbar spinal stenosis Large splenic infarct on apixaban Follows hematology oncology. Goal to continue apixaban for 6 months total (started 09/06) If no resolution of lower back pain, consider reimaging abdomen with CT AP QUALITY [employer] - VTE: Apixaban 5 mg b.i.d. - CODE STATUS: Full code - DIET: Diabetic Quality Stroke Does the patient have a stroke diagnosis?: No VTE Prior VTE?: No VTE Risk Level:: Medical - moderate - high VTE Device Contraindication: Treatment Not Indicated VTE Drug Contraindication: N/A - Med Ordered
[2024-10-16 15:43] LABS: Glucose, Whole Blood 107 mg/dL (60-115)
[2024-10-16 20:19] LABS: Glucose, Whole Blood 256 mg/dL (60-115)
[2024-10-17 03:23] VITALS: BP 168/74; PULSE 65; RESP 20; TEMP 36.6; O2SAT 96
[2024-10-17 07:00] LABS: MANUAL DIFF FLAG NO
[2024-10-17 07:07] LABS: Hematocrit 29.6 % (37.0-47.0); Hemoglobin 10.1 g/dl (12.0-16.0); Imm Gran Abs Auto 0.01 X10*3/uL (0.00-0.03); Imm Gran Pct Auto 0.2 % (0.0-0.4); Lymphocytes Absolute Auto 1.7 X10*3/uL (1.2-4.9); Mean Corpuscular HGB Conc 34.1 g/dl (31.0-35.0); Mean Corpuscular Hemoglobin 29.4 pg (27.0-33.0); Mean Corpuscular Volume 86.0 fL (80.0-98.0); NRBC Abs Auto 0.000 X10*3/uL (0.0-0.012); NRBC Pct Auto 0.0 /100WBC (0.0-0.2); Platelet Count 275 X10*3/uL (160-400); Red Blood Count 3.44 X10*6/uL (4.20-5.50); White Blood Count 6.5 X10*3/uL (4.8-10.8)
[2024-10-17 07:24] VITALS: BP 160/79; PULSE 65; RESP 18; TEMP 36.4; O2SAT 97
[2024-10-17 07:25] LABS: Anion Gap 10 (12-20); Blood Urea Nitrogen 26 mg/dL (9-16); Calcium 7.9 mg/dL (8.4-10.2); Carbon Dioxide 25 mmol/L (22-29); Chloride 107 mmol/L (96-108); Creatinine Clr Calc Pharmacy 46.2; Estimated Glomerular Filt Rate 51; Potassium 4.2 mmol/L (3.3-5.1); Sodium 138 mmol/L (135-145)
[2024-10-17 07:34] LABS: Glucose, Whole Blood 116 mg/dL (60-115)
[2024-10-17] MEDS: Nicotine 7 MG PATCH.TD24 TRANSDERMA (07:48)
[2024-10-17] MEDS: Aspirin Enteric Coated 81 MG TABLET.DR PO (07:50)
[2024-10-17] MEDS: 0.9 % Sodium Chloride Flush 3 ML SYRINGE IVFLUSH (07:52)
[2024-10-17 09:41] VITALS: BP 120/57; PULSE 65
--- NOTE | 2024-10-17 11:01 | MHC.CM.PN ---
PT MEDICALLY CLEARED FOR DC HOME SELF CARE, PT WILL CALL FAMILY FOR TRANSPORT.
[2024-10-17 11:37] LABS: Glucose, Whole Blood 169 mg/dL (60-115)
[2024-10-17 11:51] VITALS: BP 155/67; PULSE 64; RESP 18; TEMP 36; O2SAT 96
--- NOTE | 2024-10-17 18:36 | P.DS_ITS ---
DS: Providers Provider Date of Service: 10/17/24 Date of admission: 10/15/24 06:45 Date of discharge: 10/17/24 Primary care physician: Radha Jamison DO Admitting clinician: Alan Lopez Attending physician on discharge: Alan Lopez DS: Diagnosis Discharge Diagnosis (1) Nonadherence to medication: Status: Acute (2) HTN (hypertension): Status: Acute (3) Hypertensive crisis: Status: Acute (4) CAD (coronary artery disease): Status: Acute (5) Uncontrolled diabetes mellitus: Status: Acute (6) Lumbosacral spondylosis: Status: Acute (7) Headache, migraine: Status: Acute DS: Summary Hospital Course Hospital Course: Chief Complaint: Headache, low back pain 63-year-old female with CAD, PAD, T2 DM, HTN, HLD, prior right carotid endarterectomy 2002, recent large splenic infarct on apixaban, presents with bitemporal headache, low back pain and chronic bilateral lower extremity pain which awoke her from sleep, admitted with hypertensive emergency in the setting of severe bilateral carotid artery stenosis. Patient reports having fallen asleep last night without complaint or issue. She was awoken from sleep with complaints of severe headache frontal/bitemporal. She also noted a new sharp stabbing lower back pain ongoing with a headache (nonradiating). She has complaints of bilateral lower extremity pain which is chronic in nature, however had exacerbated when she was awoken from sleep. Patient denies vision changes, loss of vision, slurred speech, hemiparesis, hemiplegia. Denies chest pain, chest pressure, dyspnea, diaphoresis. Denies nausea, vomiting, diarrhea. Denies fevers chills or shakes. Denies new rashes. Reports compliance with her medications ED MANAGEMENT ECG performed, unremarkable changes from prior. Noted to be hypertensive on evaluation. 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 Vascular surgery was consulted. Also revealing severe stenosis of left common carotid artery. Patient received morphine, nitroglycerin, hydralazine, Valium and Dilaudid, with improvement in her headache and blood pressure. Severe bilateral carotid artery stenosis Right carotid endarterectomy 2002 Peripheral arterial disease - possible dissecting right carotid identified on imaging. Vascular surgery has reviewed, and seems similar to postoperative changes 2022. - 85% left common carotid artery stenosis. Hypertensive emergency Bitemporal headache Resolved PLAN - hydralazine 25 mg t.i.d. was started - carvedilol 25 mg b.i.d. p.o. - hydrochlorothiazide 50 mg OD p.o. - Imdur 30 mg OD p.o. ER - lisinopril 40 mg OD p.o. Status at Discharge Functional status at discharge: independent ambulation Overall status at discharge: patient is back to baseline Time Attestation Total time managing care of this patient today: 35 mintues. Discharge Coordination Time (in mins): 15 Quality: Safe Use of Opioids Does Pt have an Active Cancer Diagnosis on the Problem List?: No Quality: Stroke Does the patient have a stroke diagnosis?: No Physical Exam Exam: Exam: General: A&O x3, oriented to time place person and situation, comfortable, no pain Cardiac: S1, S2 auscultated with no S3/4, no MRG. Well perfused. Respiratory: Normal breath sounds auscultated throughout all lung zones, without wheezing, rales. Normal rate. GI/ : No abdominal pain on palpation, no masses or distentions. MSK: Normal ambulation without pain at bony prominences or musculature Neurological: Normal neurological examination on overview, without obvious CN II-XII abnormalities. Vital Signs: Vital Signs: Last Vital Signs Temp 96.8 F 10/17/24 11:51 Pulse 64 10/17/24 11:51 Resp 18 10/17/24 11:51 BP 155/67 H 10/17/24 11:51 Pulse Ox 96 10/17/24 11:51 O2 Del Method Room Air 10/17/24 11:51 O2 Flow Rate 1 10/16/24 00:00 BMI result Body Mass Index 29.6 DS: Data Data Completed and Pending Completed studies during hospitalization [Text1]: Procedures Extirpation of Matter from Left Femoral Artery, Open Approach (05/09/20) Extirpation of Matter from Left Popliteal Artery, Open Approach (05/09/20) Extirpation of Matter from Right Common Carotid Artery, Open Approach (11/28/22) Fluoroscopy of Aorta and Bilateral Lower Extremity Arteries (05/09/20) Insertion of Infusion Device into Superior Vena Cava, Percutaneous Approach (05/09/20) Supplement Left Femoral Artery with Synthetic Substitute, Open Approach (05/09/20) Supplement Left Popliteal Artery with Synthetic Substitute, Open Approach (05/09/20) Supplement Right Common Carotid Artery with Synthetic Substitute, Open Approach (11/28/22) Transfusion of Nonautologous Red Blood Cells into Peripheral Vein, Percutaneous Approach (05/09/20) Labs on day of discharge: Laboratory Results - last 24 hr 10/16/24 10/17/24 10/17/24 20:13 06:42 07:23 WBC 6.5 RBC 3.44 L Hgb 10.1 L Hct 29.6 L MCV 86.0 MCH 29.4 MCHC 34.1 RDW 14.3 Plt Count 275 MPV 9.5 Immature Gran % (Auto) 0.2 Neut % (Auto) 62.1 Lymph % (Auto) 26.3 [place] % (Auto) 6.1 Eos % (Auto) 4.7 H Baso % (Auto) 0.6 Lymph # (Auto) 1.7 [place] # (Auto) 0.4 Eos # (Auto) 0.3 Baso # (Auto) 0.0 Abs Immat Gran (auto) 0.01 Absolute Neuts (auto) 4.1 Absolute Nucleated RBC 0.000 Nucleated RBC % (auto) 0.0 Sodium 138 Potassium 4.2 Chloride 107 Carbon Dioxide 25 Anion Gap 10 L BUN 26 H Creatinine 1.09 Estim Creat Clear Calc 46.2 Estimated GFR 51 POC Glucose 256 H 116 H Random Glucose 120 H Calcium 7.9 L 10/17/24 11:27 WBC RBC Hgb Hct MCV MCH MCHC RDW Plt Count MPV Immature Gran % (Auto) Neut % (Auto) Lymph % (Auto) [place] % (Auto) Eos % (Auto) Baso % (Auto) Lymph # (Auto) [place] # (Auto) Eos # (Auto) Baso # (Auto) Abs Immat Gran (auto) Absolute Neuts (auto) Absolute Nucleated RBC Nucleated RBC % (auto) Sodium Potassium Chloride Carbon Dioxide Anion Gap BUN Creatinine Estim Creat Clear Calc Estimated GFR POC Glucose 169 H Random Glucose Calcium Discharge Plan Discharge Anticipated Discharge Date/Time: 10/17/24 11:23 Patient Disposition: Home, Self-Care Discharge Diagnosis: Hypertensive emergency in the setting of severe bilateral carotid artery stenosis Referrals: Radha Jamison DO [Primary Care Provider, Internal Medicine] - 1 Week Discharge Medications: New hydralazine 25 mg Tablet 25 mg PO TID 30 Days Qty: 90 0RF Protocol: Hold for SBP< HOLD for SBP < : 90 nicotine 7 mg/24 hr Patch 24 Hour 7 mg transdermal DAILY 30 Days Qty: 30 0RF Continued pioglitazone 15 mg tablet 15 mg PO DAILY 30 Days Qty: 30 11RF acetaminophen 650 mg tablet extended release 650 mg PO Q8H omeprazole 20 mg capsule,delayed release(DR/EC) 40 mg PO BIDWM@0800,1700 albuterol sulfate [Ventolin HFA] 90 mcg/actuation HFA aerosol inhaler 2 puff INHALATION Q6H PRN (Reason: Shortness Of Breath Or Wheezing) lisinopril 40 mg tablet 40 mg PO DAILY fluticasone propionate 50 mcg/actuation spray,suspension 2 spray intranasal DAILY loratadine 10 mg tablet 10 mg PO DAILY nicotine (polacrilex) 2 mg lozenge 2 mg PO Q1-2H PRN (Reason: Nicotine Cravings) Asmanex HFA 100 mcg/actuation HFA aerosol inhaler 2 puff INHALATION BID Ozempic 0.25 mg or 0.5 mg (2 mg/3 mL) pen injector 0.5 mg subcut FR isosorbide mononitrate 30 mg tablet extended release 24 hr 30 mg PO DAILY ferrous sulfate 325 mg (65 mg iron) tablet 325 mg PO BID PRN (Reason: Iron Levels) Rx Instructions: Pt takes as needed due to this med making the pt constipated. Eliquis 5 mg tablet 5 mg PO BID Qty: 74 0RF Rx Instructions: Take 10 mg twice daily for 7 days then 5 mg twice daily telmisartan 80 mg tablet 80 mg PO DAILY clopidogrel 75 mg tablet 75 mg PO DAILY multivitamin Tablet 1 tab PO DAILY aspirin [Adult Low Dose Aspirin] 81 mg tablet,delayed release (DR/EC) 81 mg PO DAILY escitalopram oxalate [Lexapro] 20 mg tablet 20 mg PO DAILY@1800 mirtazapine 45 mg tablet 45 mg PO BEDTIME atorvastatin [Lipitor] 80 mg tablet 80 mg PO BEDTIME Tresiba FlexTouch U-100 100 unit/mL (3 mL) insulin pen 14 unit subcut DAILY (DME) FreeStyle Lite Strips Strip See Rx Instructions Not Applicable QID Qty: 10 Rx Instructions: As directed ezetimibe 10 mg tablet 10 mg PO DAILY gabapentin 600 mg tablet 600 mg PO BID amitriptyline 50 mg tablet 50 mg PO BEDTIME Synjardy 12.5-1,000 mg tablet 1 tab PO BID hydrochlorothiazide 50 mg tablet 50 mg PO DAILY carvedilol [Coreg] 25 mg tablet 25 mg PO BID Qty: 120 4RF Rx Instructions: must administer with a meal/food nifedipine 90 mg tablet extended release 24hr 90 mg PO BEDTIME Qty: 90 4RF docusate sodium 100 mg capsule 100 mg PO BID Discharge Orders: Discharge Order (Routine); Ordered 10/17/24 Ordered By: Alan Lopez Diet: Advance to usual diet Activity on Discharge: As tolerated Stand Alone Forms: Patient Portal Discharge page Print Language: [place] Care Plan Goals: Follow up outpatient vascular surgery Check blood pressure daily Continue medication regimen for antihypertensives Health Concerns: Uncontrolled HTN Uncontrolled diabetes mellitus Medication noncompliance Plan of Treatment: As above Assessment: Blood pressure has been stable for the past 24 hours past hypertensive emergency. Currently hemodynamically stable Randy discharged home Discharge Date/Time: 10/17/24 12:37
--- OUTSIDE RECORDS SUMMARY | 2024-11-17 20:00 | XMS_ITS | Clinical Summary ---
Author Organization Unknown Care Team Providers Care Blueprint Duplicator Name Role Phone ADILIA FELIPE, VIOLETA Unavailable Unavailable SURJIT DAVID, ERIC Unavailable Unavailable Payers Payer Name Policy Type Policy Number Effective Date Expira tion Date MEDICAID [facility] [id number] Problems Condition Name Condition Details Condition Category Status Onset Date Resolution Date Last Treatment Date Treating Clinician Comments ESSENTIAL (PRIMARY) HYPERTENSION Active 09-21 00:00: 00 ATHSCL HEART DISEASE OF [place] CORONARY ARTERY W/O ANG PCTRS Active 09-21 [...] CIGARETTES, UNCOMPLICATE D Active 09-21 00:00: 00 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 09-21 00:00: 00 PENITENTIARY (CURRENT) USE OF ANTITHROMBOT ICS/ANTIPLAT ELETS Active [...] release 24 hr 805 00:00: 00 Yes [id number] 60 mg AT BEDTIME 60 mg AT BEDTIME (route: oral) Med Classific ation: Cardiovas cular Therapy Agents oxycodone 5 mg tablet 09-04 00:00: 00 11-19 23:59 :00 No [id number] Unavailable 5 mg FIVE TIMES DAILY NEEDED 5 mg FIVE TIMES DAILY NEEDED (route: oral) Med Classific ation: Analgesic , Anti-infl ammatory or Antipyret ic gabapentin 600 mg tablet 09-03 00:00: 00 09-25 23:59 :00 No [id number] 600 mg 2 TIMES DAILY 600 mg 2 TIMES DAILY (route: oral) Med Classific ation: Central Nervous System Agents nicotine 21 mg/24 hr daily transdermal patch 08-30 00:00: 00 Yes [id number] Unavailable 21 mg DAILY 21 mg DAILY (route: transderma l) Med Classific ation: Chemical Dependenc y, Agents to Treat Alcohol Prep Pads 08-29 00:00: 00 05-18 23:59 :00 No [id number] 1 pads, medicat ed DIRECTED THREE TIMES DAILY AND NEEDED 1 pads, medicated DIRECTED THREE TIMES DAILY AND NEEDED (route: topical) Med Classific ation: Antisepti cs and Disinfect ants amitriptyli ne 50 mg tablet 08-29 00:00: 00 09-22 23:59 :00 No [id number] Unavailable 50 mg AT BEDTIME 50 mg AT BEDTIME (route: oral) Med Classific ation: Central Nervous System Agents Asmanex HFA 100 mcg/actuati on aerosol inhaler 08-29 00:00: 00 Yes [id number] 2 puff TWICE DAILY 2 puff TWICE DAILY (route: inhalation ) Med Classific ation: Respirato ry Therapy Agents atorvastati n 80 mg tablet 08-29 00:00: 00 Yes [id number] Unavailable 80 mg BEDTIME 80 mg BEDTIME (route: oral) Med Classific ation: Cardiovas cular Therapy Agents carvedilol 25 mg tablet 08-29 00:00: 00 Yes [id number] Unavailable 25 mg TWICE DAILY 25 mg TWICE DAILY (route: oral) Med Classific ation: Cardiovas cular Therapy Agents clopidogrel 75 mg tablet 08-29 00:00: 00 Yes [id number] 75 mg EVERY AM 75 mg EVERY AM (route: oral) Med Classific ation: Hematolog ical Agents docusate sodium 100 mg capsule 08-29 00:00: 00 09-25 23:59 :00 No [id number] Unavailable 100 mg TWICE DAILY 100 mg TWICE DAILY (route: oral) Med Classific ation: Gastroint estinal Therapy Agents escitalopra m 20 mg tablet 08-29 00:00: 00 Yes [id number] Unavailable 20 mg EVERY PM 20 mg EVERY PM (route: oral) Med Classific ation: Central Nervous System Agents FeroSul 325 mg (65 mg iron) tablet 08-29 00:00: 00 09-25 23:59 :00 No [id number] Unavailable 325 mg TWICE DAILY IN THE MORNING AND AT BEDTIME 325 mg TWICE DAILY IN THE MORNING AND AT BEDTIME (route: oral) Med Classific ation: Electroly te Balance-N utritiona l Products gabapentin 800 mg tablet 08-29 00:00: 00 09-22 23:59 :00 No [id number] 800 mg 2 TIMES DAILY 800 mg 2 TIMES DAILY (route: oral) Med Classific ation: Central Nervous System Agents hydralazine 25 mg tablet 08-29 00:00: 00 09-22 23:59 :00 No [id number] Unavailable 25 mg 3 TIMES DAILY 25 mg 3 TIMES DAILY (route: oral) Med Classific ation: Cardiovas cular Therapy Agents hydralazine 50 mg tablet 08-29 00:00: 00 09-25 23:59 :00 No [id number] Unavailable 50 mg THREE TIMES DAILY IN THE MORNING AT 50 mg THREE TIMES DAILY IN THE MORNING AT (route: oral) Med Classific ation: Cardiovas cular Therapy Agents mirtazapine 45 mg tablet 08-29 00:00: 00 Yes [id number] Unavailable 45 mg AT BEDTIME 45 mg AT BEDTIME (route: oral) Med Classific ation: Central Nervous System Agents omeprazole 20 mg capsule,del ayed release 08-29 00:00: 00 Yes [id number] 20 mg TWICE DAILY 20 mg TWICE DAILY (route: oral) Med Classific ation: Gastroint estinal Therapy Agents lisinopril 40 mg tablet 09-25 00:00: 00 Yes [id number] 40 mg DAILY 40 mg DAILY (route: oral) Med Classific ation: Cardiovas cular Therapy Agents metformin 1,000 mg tablet 09-25 00:00: 00 09-22 23:59 :00 No [id number] 1000 mg 2 TIMES DAILY 1000 mg 2 TIMES DAILY (route: oral) Med Classific ation: Endocrine multivitami n tablet 09-25 00:00: 00 Yes [id number] 1 tablet DAILY 1 tablet DAILY (route: oral) Med Classific ation: Electroly te Balance-N utritiona l Products nifedipine ER 60 mg tablet,exte nded release 09-25 00:00: 00 Yes [id number] 60 mg EVERY PM 60 mg EVERY PM (route: oral) Med Classific ation: Cardiovas cular Therapy Agents pioglitazon e 15 mg tablet 09-25 00:00: 00 Yes [id number] 15 mg DAILY 15 mg DAILY (route: oral) Med Classific ation: Endocrine Tresiba FlexTouch U-100 insulin 100 unit/mL (3 mL) subcutaneou s pen 09-25 00:00: 00 Yes [id number] 10 In unit DAILY 10 In unit DAILY (route: subcutaneo ) Med Classific ation: Endocrine aspirin 81 mg tablet 09-22 00:00: 00 Yes [id number] 1 tablet DAILY 1 tablet DAILY (route: oral) Med Classific ation: Hematolog ical Agents docusate sodium 100 mg capsule 09-22 00:00: 00 Yes [id number] 1 capsule 2 TIMES DAILY 1 capsule 2 TIMES DAILY (route: oral) Med Classific ation: Gastroint estinal Therapy Agents ferrous sulfate 325 mg (65 mg iron) tablet 09-22 00:00: 00 Yes [id number] 1 tablet 2 TIMES DAILY 1 tablet 2 TIMES DAILY (route: oral) Med Classific ation: Electroly te Balance-N utritiona l Products isosorbide mononitrate ER 30 mg tablet,exte nded release 24 hr 09-22 00:00: 00 Yes [id number] 1 tablet DAILY 1 tablet DAILY (route: oral) Med Classific ation: Cardiovas cular Therapy Agents Vital Signs Vital Name Observation Time Observation Value Commen ts Temperature 2024-10-14 11:51:00.000 97.5 [degF] Temperature 2024-10-13 11:11:00.000 97.5 [degF] Temperature 2024-10-12 10:34:00.000 97.5 [degF] Temperature 2024-10-11 11:46:00.000 98 [degF] Temperature 2024-10-10 11:18:00.000 98.1 [degF] Temperature 2024-10-09 12:11:00.000 97.7 [degF] Temperature 2024-10-08 11:16:00.000 97.5 [degF] Temperature 2024-10-07 11:25:00.000 97.5 [degF] Temperature 2024-10-06 10:51:00.000 97.7 [degF] Temperature 2024-10-05 11:25:00.000 97.5 [degF] Temperature 2024-10-04 21:55:00.000 97.5 [degF] Temperature 2024-10-03 10:31:00.000 97.5 [degF] Plan of Treatment Planned Activity [...] OF PATIENTS MENTAL/BEHAVIORAL STATUS, ASSESS VITAL SIGNS WEEKLY, ALLOW 2 PRNS FOR MEDICATION MANAGEMENT. [code = SKILLED NURSE TO O/A OF PATIENTS MENTAL/BEHAVIORAL STATUS, ASSESS VITAL SIGNS WEEKLY, ALLOW 2 PRNS FOR MEDICATION MANAGEMENT.] Future Scheduled Test SKILLED NU RSE FOR O/A OF GENERAL HEALTH STATUS OF PAIN, CARDIAC, RESPIRATORY, GASTROINTESTINAL, GENITOURINARY, SKIN, NEUROLOGIC, ENDOCRINE SYSTEMS TO IDENTIFY CHANGES ASSOCIATED WITH EXACERBATION FOR EARLY INTERVENTION OF COMPLICATIONS WEEKLY. [code = SKILLED NURSE FOR O/A OF GENERAL HEALTH STATUS OF PAIN, CARDIAC, RESPIRATORY, GASTROINTESTINAL, GENITOURINARY, SKIN, NEUROLOGIC, ENDOCRINE SYSTEMS TO IDENTIFY CHANGES ASSOCIATED WITH EXACERBATION FOR EARLY INTERVENTION OF COMPLICATIONS WEEKLY.] Future Scheduled Test SKILLED NU RSE TO ADMINISTER MEDICATIONS DAILY AND PRE-POUR MEDICATIONS DAILY PER MEDICATION LIST. [code = SKILLED NURSE TO ADMINISTER MEDICATIONS DAILY AND PRE-POUR MEDICATIONS DAILY PER MEDICATION LIST.] Future Scheduled Test SKILLED NU RSE FOR O/A AND SKILLED TEACHING OF COPING SKILLS TO MANAGE ANXIETY AND MAINTAIN SAFETY. [code = SKILLED NURSE FOR O/A AND SKILLED TEACHING OF COPING SKILLS TO MANAGE ANXIETY AND MAINTAIN SAFETY.] Future Scheduled Test SKILLED NU RSE FOR [...] Test SKILLED NU RSE FOR O/A AND TEACHING OF DIABETIC MANAGEMENT INCLUDING BLOOD SUGAR MONITORING/USE OF GLUCOMETER, DIABETIC DIET, LOWER EXTREMITY SKIN INSPECTION, PROPER SKIN/FOOT CARE, AND SIGNS AND SYMPTOMS HYPO/HYPERGLYCEMIA TO REPORT. [code = SKILLED NURSE FOR O/A AND TEACHING OF DIABETIC MANAGEMENT INCLUDING BLOOD SUGAR MONITORING/USE OF GLUCOMETER, DIABETIC DIET, LOWER EXTREMITY SKIN INSPECTION, PROPER SKIN/FOOT CARE, AND SIGNS AND SYMPTOMS HYPO/HYPERGLYCEMIA TO REPORT.] Future Scheduled Test SKILLED NU RSE TO OBTAIN BLOOD SUGAR PRN FOR SIGNS AND SYMPTOMS OF HYPO/HYPERGLYCEMIA. IF OBTAINED BY PATIENT/CAREGIVER PRIOR TO VISIT AND PATIENT IS NOT SYMPTOMATIC, SKILLED NURSE TO RECORD READING FROM PATIENT LOG. [code = SKILLED NURSE TO OBTAIN BLOOD SUGAR PRN FOR SIGNS AND SYMPTOMS OF HYPO/HYPERGLYCEMIA. IF OBTAINED BY PATIENT/CAREGIVER PRIOR TO VISIT AND PATIENT IS NOT SYMPTOMATIC, SKILLED NURSE TO RECORD READING FROM PATIENT LOG.] Future Scheduled Test SKILLED NU RSE TO PROVIDE TEACHING ON SIGNS AND SYMPTOMS AND MANAGEMENT OF HYPERTENSION. [code = SKILLED NURSE TO PROVIDE TEACHING ON SIGNS AND SYMPTOMS AND MANAGEMENT OF HYPERTENSION.] Future Scheduled Test SKILLED NU RSE TO PERFORM HOME SAFETY AND FALL ASSESSMENT AND PROVIDE INSTRUCTION TO IMPLEMENT HOME SAFETY AND FALL PREVENTION STRATEGIES. [code = SKILLED NURSE TO PERFORM HOME SAFETY AND FALL ASSESSMENT AND PROVIDE INSTRUCTION TO IMPLEMENT HOME SAFETY AND FALL PREVENTION STRATEGIES.] Future Scheduled Test SKILLED NU RSE FOR OBSERVATION AND ASSESSMENT OF PATIENT S PAIN LEVEL AND EFFECTIVENESS OF PAIN MANAGEMENT REGIMEN. SKILLED NURSE TO INSTRUCT PATIENT/CAREGIVER REGARDING PHARMACOLOGIC AND NON-PHARMACOLOGIC PAIN CONTROL MEASURES. SKILLED NURSE TO REPORT TO PHYSICIAN IF PAIN IS UNCONTROLLED WITH CURRENT PAIN MANAGEMENT REGIMEN. [code = SKILLED NURSE FOR OBSERVATION AND ASSESSMENT OF PATIENT S PAIN LEVEL AND EFFECTIVENESS OF PAIN MANAGEMENT REGIMEN. SKILLED NURSE TO INSTRUCT PATIENT/CAREGIVER REGARDING PHARMACOLOGIC AND NON-PHARMACOLOGIC PAIN CONTROL MEASURES. SKILLED NURSE TO REPORT TO PHYSICIAN IF PAIN IS UNCONTROLLED WITH CURRENT PAIN MANAGEMENT REGIMEN.] Future Scheduled Test SKILLED NU RSE TO [...] PROBLEMS.] Future Scheduled Test SKILLED NU RSE FOR O/A OF CLIENT'S SLEEP PATTERNS. MAY TEACH INTERVENTIONS R/T ACQUIRING IMPROVED REST [code = SKILLED NURSE FOR O/A OF CLIENT'S SLEEP PATTERNS. MAY TEACH INTERVENTIONS R/T ACQUIRING IMPROVED REST] Future Scheduled Test SKILLED NU RSE FOR O/A OF CLIENT'S SOCIAL ISOLATION AND PROVIDE ASSISTANCE TO CLIENT IN DEVELOPMENT OF PLANNED ACTIVITIES [code = SKILLED NURSE FOR O/A OF CLIENT'S SOCIAL ISOLATION AND PROVIDE ASSISTANCE TO CLIENT IN DEVELOPMENT OF PLANNED ACTIVITIES] Future Scheduled Test SKILLED NU RSE FOR O/A OF CLIENT'S CURRENT DEGREE OF HOPELESSNESS AND PROVIDE THERAPEUTIC INTERVENTIONS AND TEACHING DESIGNED TO ENHANCE THE CLIENT'S WELL BEING. [code = SKILLED NURSE FOR O/A OF CLIENT'S CURRENT DEGREE OF HOPELESSNESS AND PROVIDE THERAPEUTIC INTERVENTIONS AND TEACHING DESIGNED TO ENHANCE THE CLIENT'S WELL BEING.] Future Scheduled Test SKILLED NU RSE TO ASSESS PATIENT S PSYCHOSOCIAL STATUS TO IDENTIFY POTENTIAL ISSUES THAT MAY COMPLICATE THE PROVISION OF THE PLAN OF CARE INCLUDING THE PATIENT S ABILITY TO ACCESS COMMUNITY RESOURCES AND PSYCHOSOCIAL SUPPORT SERVICES. [code = SKILLED NURSE TO ASSESS PATIENT S PSYCHOSOCIAL STATUS TO IDENTIFY POTENTIAL ISSUES THAT MAY COMPLICATE THE PROVISION OF THE PLAN OF CARE INCLUDING THE PATIENT S ABILITY TO ACCESS COMMUNITY RESOURCES AND PSYCHOSOCIAL SUPPORT SERVICES.] Future Scheduled Test SKILLED NU RSE WILL MAINTAIN SITUATIONAL AWARENESS FOR SAFETY AND WILL NOTIFY CLINICAL RESEARCH LIBRARIAN AND PHYSICIAN/PROVIDER WITH ANY CHANGE IN CONDITION. [code = SKILLED NURSE WILL MAINTAIN SITUATIONAL AWARENESS FOR SAFETY AND WILL NOTIFY CLINICAL RESEARCH LIBRARIAN AND PHYSICIAN/PROVIDER WITH ANY CHANGE IN CONDITION.] Goal 2023-11-20 Patient Goal - LOWERING MY B LOOD PRESSURE Goal 2024-07-17 Patient Goal - LOWERING MY B LOOD PRESSURE Goal 2024-05-18 Patient Goal - LOWERING MY B LOOD PRESSURE Goal 2024-03-19 Patient Goal - LOWERING MY B LOOD PRESSURE Goal 2024-01-19 Patient Goal - LOWERING MY B LOOD PRESSURE Goal Patient Goal - TO HAVE LESS PAIN Goal 2024-09-19 Patient Goal - LOWERING MY B LOOD PRESSURE Goal Provider Goal - A PLAN OF CARE WILL BE ESTABLISHED THAT MEETS PATIENT'S NURSING HOME NEEDS AND INCLUDES PATIENT GOAL FOR HOME HEALTH. Goal Provider Goal - ALTERED MENTAL/BEHAVIORAL STATUS WILL BE IDENTIFIED PROMPTLY AND INTERVENTION INITIATED QUICKLY TO MINIMIZE ASSOCIATED RISKS THROUGHOUT CERTIFICATION PERIOD. Goal Provider Goal - CHANGE [...] PERIOD. Goal Provider Goal - PATIENT/CAREGIVER WILL VERBALIZE/DEMONSTRATE KNOWLEDGE OF DIABETIC MANAGEMENT. CHANGES IN DIABETIC STATUS WILL BE IDENTIFIED AND REPORTED TO PHYSICIAN FOR PROMPT INTERVENTION THROUGHOUT THE CERTIFICATION PERIOD. Goal Provider Goal - BLOOD SUGAR READING WILL BE OBTAINED ORDERED THROUGHOUT CERTIFICATION PERIOD. Goal Provider Goal - PATIENT/CAREGIVER WILL VERBALIZE SIGNS AND SYMPTOMS OF HYPERTENSION AND WILL BE ABLE TO DEMONSTRATE ABILITY TO MANAGE EXACERBATION BY END OF THE EPISODE. Goal Provider Goal - PATIENT/CAREGIVER WILL VERBALIZE/DEMONSTRATE EFFECTIVE HOME SAFETY AND FALL PREVENTION STRATEGIES THROUGHOUT CERTIFICATION PERIOD. Goal Provider Goal - PATIENT/CAREGIVER WILL DEMONSTRATE UNDERSTANDING OF PHARMACOLOGIC AND NONPHARMACOLOGIC PAIN CONTROL MEASURES AND PATIENT WILL HAVE IMPROVEMENT IN PAIN INTERFERING WITH ACTIVITY EVIDENCED BY PAIN AT A LEVEL THAT IS ACCEPTABLE TO THE PATIENT AND PAIN LEVEL WITHIN ESTABLISHED PARAMETERS BY END OF CERTIFICATION PERIOD. Goal Provider Goal - PATIENT/CAREGIVER WILL VERBALIZE UNDERSTANDING OF EDUCATION PROVIDED ON MEDICATIONS BY THE END OF THE CERTIFICATION PERIOD. Goal Provider Goal - PATIENT WILL REPORT AT LEAST 6-8 HOURS A NIGHT, RESTFUL SLEEP PATTERNS ACHIEVED USING THERAPEUTIC INTERVENTIONS BEFORE THE END OF THE CERTIFICATION PERIOD. Goal Provider Goal - PATIENT WILL DEMONSTRATE AN INCREASED INTEREST IN SOCIALIZATION AND ACTIVITIES BY THE END OF THE CERTIFICATION PERIOD. Goal Provider Goal - PATIENT WILL VERBALIZE OWN ASSOCIATION OF FEELINGS OF HOPELESSNESS, AND 3 THERAPEUTIC TECHNIQUES TO DECREASE THESE FEELINGS BY THE END OF THIS CERTIFICATION. Goal Provider Goal - PSYCHOSOCIAL NEEDS WILL BE IDENTIFIED AND PLAN IMPLEMENTED TO MINIMIZE RISK THROUGHOUT CERTIFICATION PERIOD. Goal Provider Goal - PATIENT WILL REMAIN SAFE IN THE COMMUNITY AND WILL BE FREE OF DANGER TO SELF AND OTHERS THROUGHOUT THE CERTIFICATION PERIOD. Encounters Start Date/Time End Date/Time Encounter Type Admission Type Attending [facility] Care Department Encounter ID Discharge Date Discharge Status Discharge Condition Discharge Reason Percent Goals Met 2024-09-20 00:00:00 2024-11-18 00:00:00 Outpatient RECERTIFIC ATION ERIC EDDY [facility] [id number] 13.64
== END 2024-10-17 12:37 | disposition home or self-care (01) | DRG 199 ==
LOC: HO.ED 06:37 → HO.EDOVER 07:08 → HO.IMC 16:58
PROVIDERS: Admitting Provider Internal Medicine; Emergency Provider Emergency Medicine; PCP Family Medicine; Visit Provider Hospitalist
DX: I16.1 Hypertensive emergency (principal); D73.5 Infarction of spleen; E11.51 Type 2 diabetes mellitus with diabetic peripheral angiopathy without gangrene; F17.210 Nicotine dependence, cigarettes, uncomplicated; I10 Essential (primary) hypertension; I65.23 Occlusion and stenosis of bilateral carotid arteries; I25.10 Atherosclerotic heart disease of native coronary artery without angina pectoris; G43.909 Migraine, unspecified, not intractable, without status migrainosus; M48.061 Spinal stenosis, lumbar region without neurogenic claudication; Z71.6 Tobacco abuse counseling; Z79.01 Long term (current) use of anticoagulants; Z79.02 Long term (current) use of antithrombotics/antiplatelets; Z79.82 Long term (current) use of aspirin; Z79.899 Other long term (current) drug therapy
CPT/HCPCS: 36415; 70496; 70498; 71045; 80048; 80053; 82947; 83735; 84484; 85025; 93005; 93880; 97161; 99285; J0360; J1171; J2270; J2405; J3360; J7120; Q9967

== ENCOUNTER → 2024-10-15 02:11 | Outpatient (BNV) | payer MEDICAID, SELFPAY | PROVIDERS: Admitting Provider Internal Medicine; Emergency Provider Emergency Medicine; Visit Provider Internal Medicine Cardiovascular Disease | DX: R94.31 Abnormal electrocardiogram [ECG] [EKG] (principal); I45.10 Unspecified right bundle-branch block; R07.9 Chest pain, unspecified | CPT/HCPCS: 93010 ==

== ENCOUNTER → 2024-10-15 02:35 | Outpatient (BNV) | payer MEDICAID, SELFPAY | PROVIDERS: Emergency Provider Emergency Medicine; Visit Provider Radiology Diagnostic Radiology | DX: R51.9 Headache, unspecified (principal); I65.23 Occlusion and stenosis of bilateral carotid arteries; R07.9 Chest pain, unspecified | CPT/HCPCS: 70496; 70498; 71045; 93880 ==

== ENCOUNTER → 2024-10-15 06:45 | Outpatient (BNV) | payer MEDICAID, SELFPAY | PROVIDERS: Admitting Provider Internal Medicine; Emergency Provider Emergency Medicine; Visit Provider Surgery Vascular Surgery | DX: I65.23 Occlusion and stenosis of bilateral carotid arteries (principal) | CPT/HCPCS: 99222; 99232 ==

== ENCOUNTER → 2024-10-15 06:45 | Outpatient (BNV) | payer MEDICAID, SELFPAY | PROVIDERS: Admitting Provider Internal Medicine; Emergency Provider Emergency Medicine; Visit Provider Hospitalist | DX: I1A.0 Resistant hypertension (principal); Z91.148 Patient's other noncompliance with medication regimen for other reason; I16.9 Hypertensive crisis, unspecified; I25.10 Atherosclerotic heart disease of native coronary artery without angina pectoris; E11.65 Type 2 diabetes mellitus with hyperglycemia; M47.817 Spondylosis without myelopathy or radiculopathy, lumbosacral region; G43.909 Migraine, unspecified, not intractable, without status migrainosus | CPT/HCPCS: 99222; 99232; 99239 ==

== ENCOUNTER 2024-10-22 09:47 | Outpatient (AMB) | payer MEDICAID, SELFPAY ==
--- NOTE | 2024-10-22 09:51 | A.OFFVIS_ITS ---
Vital Signs 10/22/24 09:52 Height 5 ft Weight 148 lb BMI 28.9 Intake Visit Reasons: ED follow up carotid US Intake Note: Ed follow up s/p CTA Head/Neck 10/15/24 Hide Selector Required: No Accompanied by: Daughter Allergies latex (LATEX) Allergy (Severe, Verified 10/22/24 09:53) RASH naproxen (From NAPROSYN) Adverse Reaction (Intermediate, Verified 10/22/24 09:53) TACHYCARDIA HPI HPI ED follow up carotid US: Details: Very pleasant 63-year-old female presents for hospital follow-up regarding carotid stenosis. She was actually seen for pain of the lower extremities. Which she reports is better controlled. There was concern about a severe headache and hypertension and she subsequently ended up with carotid CT angiogram. It demonstrated high-grade left carotid stenosis and concerns of the right carotid. She now presents for routine hospital follow-up. Of note she is able to climb a flight of stairs with no significant respiratory difficulty her bigger complaint is her lower extremities. She is being followed by the [facility] cardiology team. [facility] Medical History Chronic anemia NSTEMI (non-ST elevated myocardial infarction) Mild aortic valve stenosis LORE (obstructive sleep apnea) Chronic low back pain Lumbar spinal stenosis HTN (hypertension) Vitamin D deficiency HLD (hyperlipidemia) T2DM (type 2 diabetes mellitus) H. pylori infection CAD (coronary artery disease) Cyst (solitary) of breast Kidney calculi Arthritis Asthma HTN (hypertension) Diabetes Surgical History History of right-sided carotid endarterectomy (~11/2022) S/P aortogram History of esophagogastroduodenoscopy (EGD) Hx of colonoscopy History of breast surgery History of cardiac cath Family History Mother Diabetes Liver cancer Social History Household Members: Other Household Members Other:: friend and adult son Housing: Apartment Are you a primary regular senior care provider to a significant other at home: No Do you presently have visiting nurse or other home services: Yes Alcohol intake: never Comment: refuses bed alarm Patient Tobacco Use Status: Current everyday Tobacco user Tobacco use type: Cigarette Cigarette Packs Per Day: 1 Cigarettes Per Day: 2 Years Smoked: 30 e-Cigarette/Vaping Use: Currently Using Second Hand Smoke Exposure: Yes Advance Directives Date on File: 09/26/23 service: No Current occupational status: unemployed and disabled Review of Systems Const All systems reviewed & are unremarkable except as noted in HPI and below Reports no additional complaints ENT Reports Normal hearing present Card Denies chest pain, Denies chest pain at rest, Denies chest pain with activity and Denies pedal edema Resp Denies cough GI Denies abdominal pain Musc Denies abnormal gait, Denies muscle cramps and Denies radiating pain into limb Skin/Breast Denies skin ulcer and Denies wounds Neuro Reports Normal hearing present and Denies abnormal gait Psych Reports no additional complaints Physical Exam Vital Signs: BMI result Body Mass Index 28.9 Const General: cooperative, healthy appearing and comfortable Orientation/consciousness: oriented to person, oriented to place and oriented to time HEENT Head: Yes normal to inspection Neck Neck: Yes normal visual inspection Carotids: no bruits Chest Chest palpation & inspection: normal inspection of the chest Resp Effort & Inspection: normal respiratory effort and able to speak in complete sentences Auscultation: clear to auscultation bilaterally, no crackles, no rales, no rhonchi and no wheezes Cardio Rate: regular rate Rhythm: regular rhythm Heart sounds: S1 normal heart sound present and S2 normal heart sound present Bruits: no carotid bruits Peripheral pulses: Peripheral pulses 2+ throughout GI Inspection: Yes normal to inspection Skin Wounds: no wounds Hair: normal Neuro General: oriented to person, oriented to place and oriented to time Cranial nerves: Yes CN's II-XII intact bilaterally and Yes Normal hearing present Cognition (Neuro): normal cognition Motor exam (neuro): 5/5 motor strength present throughout Extrem Other: venous exam: No significant superficial varicosities or spider telangiectasias, minimal edema General: No clubbing, No cyanosis and No edema Psych Appearance: grossly normal Mental Status: mental status grossly normal Speech and movement: Normal speech and movement present Results Reviewed Results Reviewed: CT angiogram from 10/15/2024 was reviewed. Severe left carotid stenosis of 85%. Assessment & Plan Assessment & Plan (1) Bilateral carotid artery stenosis: Comment: 11/28/2022 - right carotid endarterectomy Code(s): I65.23 - Occlusion and stenosis of bilateral carotid arteries Category: Medical Plan: In short patient has high-grade left carotid stenosis she will require left carotid endarterectomy. Risks benefits complications including but not limited to bleeding infection stroke and were discussed in detail with the patient she agreed and consented and would like to move forward. Of note she will require cardiac risk stratification and is being seen by Dr. Daniel on 11/11/2024 at 10:15. Thank you for allowing us to assist in her care. Coding Level of Care Code Est Pt Level 4 (56272) Complex EM visit Add On G2211 Diagnoses Bilateral carotid artery stenosis I65.23
[2024-10-22 09:52] VITALS: BMI 28.9
--- OUTSIDE RECORDS SUMMARY | 2024-10-22 11:29 | XMS_ITS | Encounter Summary ---
Author Organization [employer] Address [address] [facility] 7t [place] [address] Care Team Providers Care Dermatology Teacher Name Role Phone Radha Jamison DO Primary Care Provider +1- [phone] Nelia Sullivan PharmD Unavailable [phone] Reason for Visit * Reason Comments Transition Of Care (Tcm) HDF scheduled Encounter Details Date Type Department Care Team ([facility] st Contact Info) Description 10/18/2024 Patient Outreach [facility] MEDICINE [address] [place] [address] Radha Jamison DO [address] [place] [address] Transition Of Care (Tcm) (HDF scheduled) Social History Tobacco Use Types Packs/Day Years [...] as of this encounter Miscellaneous Notes * Significant Event - Sri Dash - 10/18/2024 8:17 AM EDT 10/18/24 0816 Hospital Discharges and Admission for [facility] Type of Visit Hospital Admission Date of Admission/Visit 10/15/24 Date of Discharge 10/17/24 [facility] Diagnosis Carotid Stenosis Disposition Discharged Home Follow-Up Actions Follow-Up Needed Provider appointment Follow-Up Outcome Spoke to Patient Initial Contact Date 10/18/24 ANDRIY Fierro placed outbound call to patient for HDF outreach. Patient's name and were confirmed. Patient educated on the importance of follow up with provider following inpatient admission. Patientoffered an HDF appt. Patient is agreeable to an appointment and has been scheduled for 11/11/2024 at1:00 pm with Zelda, Insurance verified prior to scheduling. Patient advised to bring to appointment a photo id and insurance card. Patient also notified that a health center pharmacist will be reaching out to them via telephone prior to their scheduled appointment in order to review their medications in preparation for their appointment. Patient provided with education on contacting the Health Center with any questions or concerns prior to the scheduled appointment. Patient educated on extended clinic hours on Mondays and Wednesdays, and Walk-In Urgent Care Located in [facility] of [facility]. Patientprovided with after-hours line for [facility], , which offer night time triage service and option to transfer to highway commissioner provider if needed. [facility] [place] summary has been scanned into patient chart for review documented in this encounter Plan of Treatment Upcoming Encounters Date Type Department Care Team (Late st Contact Info) Description 11/05/2024 10:00 AM EDT Office Visit [facility] OPTOMETRY [address] [place], [place] [phone] 11/05/2024 11:00 AM EDT Medication Management [facility] MEDICINE [address] [place] [address] Nelia Sullivan, PharmD [address] [place] [address] 11/11/2024 1:00 PM EDT Office Visit [facility] MEDICINE [address] [place] [address] Vickie Penaloza MD [address] [place] [address] documented as of this encounter Goals Goal [...] 10.1(09/04/19 4:57 PM EDT) No Abdias Murillo PharmAdrian Record [...] documented as of this encounter Care Teams Dermatology Teacher Relationship Specialty Start Date End Date Radha Jamison DO [address] [place], [place] [phone] PCP - General Family Medicine 01/26/12 Nelia Sullivan PharmD [address] [place], [place] [phone] Pharmacist Internal Medicine 08/31/23 Laurel Monterroso Geriatric AssistantMarket Research Associate 10/27/22 Saige Aguilar 09/26/23 documented as of this encounter
--- OUTSIDE RECORDS SUMMARY | 2024-10-22 11:29 | XMS_ITS | Encounter Summary ---
Author Organization [employer] Address [address] [facility] 7t [place] [address] Care Team Providers Care Dry Mop Maker Name Role Phone Radha Jamison DO Primary Care Provider [phone]- [phone] Nelia Sullivan PharmD Unavailable [phone] Reason for Visit * Reason Comments Med Refill Encounter Details Date Type Department Care Team ([facility] st Contact Info) Description 03/19/2024 Refill [facility] MEDICINE [address] [place] [address] Radha Jamison DO [address] [place] [address] Chronic bilateral low back pain, unspecified whether [...] the past 12 months, has t he [employer], gas, oil or water [employer] threatened to shut off services in your [...] Description 11/05/2024 10:00 AM EDT Office Visit [facility] OPTOMETRY [address] [place] [address] 11/05/2024 11:00 AM EDT Medication Management [facility] MEDICINE [address] [place] [address] Nelia Sullivan, PharmD [address] [place] [address] 11/11/2024 1:00 PM EDT Office Visit [facility] MEDICINE [address] [place] [address] Vickie Penaloza MD [address] [place] [address] documented as of this encounter Goals Goal [...] documented as of this encounter Care Teams Dry Mop Maker Relationship Specialty Start Date End Date Radha Jamison DO [address] [place] [address] PCP - General Family Medicine 01/26/12 Nelia Sullivan PharmD [address] [place] [address] Pharmacist Internal Medicine 08/31/23 Laurel Monterroso Open Shank CovererSteak Sauce Maker 10/27/22 Saige Aguilar 09/26/23 documented as of this encounter
--- OUTSIDE RECORDS SUMMARY | 2024-10-22 11:29 | XMS_ITS | Encounter Summary ---
Author Organization [employer] Address [address] [facility] 7t [place] [address] Care Team Providers Care Bell Tier Name Role Phone Radha Jamison DO Primary Care Provider [phone]- [phone] Nelia Sullivan PharmD Unavailable [phone] Reason for Visit * Reason Comments Med Refill Encounter Details Date Type Department Care Team ([facility] Contact Info) Description 10/21/[address] [facility] MEDICINE [address] [place] [address] Radha Jamison DO [address] [place] [address] Mild persistent asthma without complication Social History Tobacco Use Types Packs/Day Years [...] the past 12 months, has t he [employer], oil or water [employer] threatened to shut off services in your [...] Description 11/05/2024 10:00 AM EDT Office Visit [facility] OPTOMETRY [address] [place] [address] 11/05/2024 11:00 AM EDT Medication Management [facility] MEDICINE [address] [place] [address] Nelia Sullivan PharmD [address] [place] [address] 11/11/2024 1:00 PM EDT Office Visit [facility] MEDICINE [address] [place] [address] Vickie Penaloza MD [address] [place] [address] documented as of this encounter Goals Goal [...] as of this encounter Visit Diagnoses Diagnosis Mild persistent asthma without complication documented in this encounter Additional Health Concerns Assessment Noted Time PHQ-9 Depression Total Score: 10 024 10:24 AM EST documented as of this encounter Care Teams Bell Tier Relationship Specialty Start Date End Date Radha Jamison DO [address] [place] [address] PCP - General Family Medicine 01/26/12 Nelia Sullivan PharmD [address] [place] [address] Pharmacist Internal Medicine 08/31/23 Laurel Monterroso Cleaning CustodianSenior Sales Compensation Analyst 10/27/22 Saige Aguilar 09/26/23 documented as of this encounter
--- OUTSIDE RECORDS SUMMARY | 2024-10-22 11:29 | XMS_ITS | Encounter Summary ---
Author Organization [employer] Address [address] [facility] 7t [place] [address] Care Team Providers Care Third Cook Name Role Phone Radha Jamison DO Primary Care Provider [phone]- [phone] Nelia Sullivan PharmD Unavailable [phone] Reason for Visit * Reason Comments Med Refill Encounter Details Date Type Department Care Team ([facility] st Contact Info) Description 02/29/2024 Refill [facility] MEDICINE [address] [place] [address] Radha Jamison DO [address] [place] [address] Chronic bilateral low back pain, unspecified whether [...] the past 12 months, has t he [employer], gas, oil or water company threatened to [...] until seen by PCP or seen by BRUSH HOLDER INSPECTOR. Scheduled BRUSH HOLDER INSPECTOR 03/05/24. documented in this encounter Plan of Treatment Upcoming Encounters Date Type Department Care Team (Late st Contact Info) Description 11/05/2024 10:00 AM EDT Office Visit [facility] OPTOMETRY [address] [place], [place] [phone] 11/05/2024 11:00 AM EDT Medication Management [facility] MEDICINE [address] [place] [address] Nelia Sullivan, PharmD [address] [place] [address] 11/11/2024 1:00 PM EDT Office Visit [facility] MEDICINE [address] [place] [address] Vickie Penaloza MD [address] [place] [address] documented as of this encounter Goals Goal [...] Result Component 10.1(09/04/19 4:57 PM EDT) No Dellogono Abdias, PharmD Record your blood [...] documented as of this encounter Care Teams Third Cook Relationship Specialty Start Date End Date Radha Jamison DO [address] [place] [address] PCP - General Family Medicine 01/26/12 Puia, Nelia, PharmD [address] [place] [address] Pharmacist Internal Medicine 08/31/23 Laurel Monterroso Bioinformatics AssociateRoller Gold Leaf 10/27/22 Saige Aguilar 09/26/23 documented as of this encounter
--- OUTSIDE RECORDS SUMMARY | 2024-10-22 11:29 | XMS_ITS | Encounter Summary ---
Author Organization [employer] Address [address] [facility] 7t [place] [address] Care Team Providers Care Electronic Resources Librarian Name Role Phone Radha Jamison DO Primary Care Provider [phone] Nelia Sullivan PharmD Unavailable [phone] Reason for Visit * Reason Comments Med Refill Encounter Details Date Type Department Care Team ([facility] Contact Info) Description 03/05/2024 Telephone [facility] MEDICINE [address] [place], [place] [phone] Radha Jamison DO [address] [place] [address] Med Refill Social History Tobacco Use Types [...] Description 11/05/2024 10:00 AM EDT Office Visit [facility] OPTOMETRY [address] [place] [address] 11/05/2024 11:00 AM EDT Medication Management [facility] MEDICINE [address] [place] [address] Nelia Sullivan PharmD [address] [place] [phone] 11/11/2024 1:00 PM EDT Office Visit [facility] MEDICINE [address] [place] [address] Vickie Penaloza MD [address] [place] [address] documented as of this encounter Goals Goal [...] as of this encounter Care Teams Electronic Resources Librarian Relationship Specialty Start Date End Date Radha Jamison DO [address] [place] [address] PCP - General Family Medicine 01/26/12 Nelia Sullivan PharmD [address] [place] [address] Pharmacist Internal Medicine 08/31/23 Laurel Monterroso Basin OperatorRadiosonde Operator 10/27/22 Saige Aguilar 09/26/23 documented as of this encounter
--- OUTSIDE RECORDS SUMMARY | 2024-10-22 11:29 | XMS_ITS | Encounter Summary ---
Author Organization [employer] Address [address] [facility] 7t [place] [address] Care Team Providers Care Process Control Tech Name Role Phone Radha Jamison DO Primary Care Provider [phone]- [phone] Nelia Sullivan PharmD Unavailable [phone] Reason for Visit * Reason Onset Date Comments Med Refill 03/06/2024 Encounter Details Date Type Department Care Team (Late st Contact Info) Description 03/06/2024 Telephone [facility] MEDICINE [address] [place] [address] Radha Jamison DO [address] [place], [place] [phone] Med Refill Social History Tobacco Use Types [...] the past 12 months, has t he [employer], gas, oil or water [employer] threatened to shut off services in your [...] immediate release tablet To be sent to: [facility] pharmacy documented in this encounter Plan of Treatment Upcoming Encounters Date Type Department Care Team (Late st Contact Info) Description 11/05/2024 10:00 AM EDT Office Visit [facility] OPTOMETRY [address] [place], [place] [phone] 11/05/2024 11:00 AM EDT Medication Management [facility] MEDICINE [address] [place] [address] Nelia Sullivan, PharmD [address] [place] [address] 11/11/2024 1:00 PM EDT Office Visit [facility] MEDICINE [address] [place] [address] Vickie Penaloza MD [address] [place] [address] documented as of this encounter Goals Goal Patient Goal Type Associated Problems Recent Progress Patient-Stated? Author Record your blood pressure once per day Blood Pressure No Puia, Nelia, PharmD Blood Pressure < 140/90 Blood Pressure 140/80(2024 9:33 AM EDT) No Puia, Nelia, PharmD Smoking cessation General No Puia, Nelia, PharmD Patient will adhere to medication regimen General No Puia, Enlia, PharmD Hemoglobin A1c < 7 Result Component [...] documented as of this encounter Care Teams Process Control Tech Relationship Specialty Start Date End Date Radha Jamison DO [address] [place] [address] PCP - General Family Medicine 01/26/12 Puia, Nelia, PharmD [address] [place] [address] Pharmacist Internal Medicine 08/31/23 Laurel Monterroso Cotton SamplerBenzene Still Utility Operator 10/27/22 Saige Aguilar 09/26/23 documented as of this encounter
--- OUTSIDE RECORDS SUMMARY | 2024-10-22 11:29 | XMS_ITS | Encounter Summary ---
Author Organization [employer] Address [address] [facility] 7t [place] [address] Care Team Providers Care Ballistics Laboratory Gunsmith Name Role Phone Radha Jamison DO Primary Care Provider [phone]- [phone] Nelia Sullivan PharmD Unavailable [phone] Reason for Visit * Reason Onset Date Comments Nurse Triage 10/07/2024 Encounter Details Date Type Department Care Team ([facility] st Contact Info) Description 10/07/2024 Telephone [facility] MEDICINE [address] [place] [address] Radha Jamison DO [address] [place] [address] Nurse Triage Social History Tobacco Use Types [...] the past 12 months, has t he [employer], gas, oil or water [employer] threatened to shut off services in your [...] 10/07/2024 12:10 PM EDT Triage call with [facility] office system analyst ID [id number] Pt reports swelling of bilateral lower extremities [...] advised to come to the WIC at [facility] to be seen by provider open [...] caller accepted this outcome. Contact pt at [phone] documented in this encounter Plan of Treatment Upcoming Encounters Date Type Department Care Team (Late st Contact Info) Description 11/05/2024 10:00 AM EDT Office Visit [facility] OPTOMETRY [address] [place] [address] 11/05/2024 11:00 AM EDT Medication Management [facility] MEDICINE [address] [place] [address] Puia, Nelia, PharmD [address] [place] [address] 11/11/2024 1:00 PM EDT Office Visit [facility] MEDICINE [address] [place] [address] Vickie Penaloza MD [address] [place] [address] documented as of this encounter Goals Goal [...] documented as of this encounter Care Teams Ballistics Laboratory Gunsmith Relationship Specialty Start Date End Date Radha Jamison DO [address] [place] [address] PCP - General Family Medicine 01/26/12 Nelia Sullivan PharmD [address] [place] [address] Pharmacist Internal Medicine 08/31/23 Laurel Monterroso Communications TechnicianVice President For Instruction 10/27/22 Siage Aguilar 09/26/23 documented as of this encounter
--- OUTSIDE RECORDS SUMMARY | 2024-10-22 11:29 | XMS_ITS | Encounter Summary ---
Author Organization [employer] Address [address] [facility] 7t [place] [address] Care Team Providers Care Enterprise Sales Executive Name Role Phone Radha Jamison DO Primary Care Provider [phone]- [phone] Abdias Murillo PharmD Unavailable Unavail able Nelia Sullivan PharmD Unavailable [phone] Reason for Visit * Reason Onset Date Comments uber 05/08/2023 Encounter Details Date Type Department Care Team ([facility] st Contact Info) Description 05/08/2023 Telephone [facility] MEDICINE [address] [place] [address] Radha Jamison DO [address] [place] [address] uber Social History Tobacco Use Types Packs/Day [...] / denial letter via mail. PT-1 Request [id number] Pending . [facility] [address] [place] [address] Scaler Packer noticed pt has pending referrals. Scaler Packer has added a note to each to add PT1 for referred tooffice. * Telephone Encounter - Ginna Stephen RN - 05/10/2023 9:31 AM EDT Uber booked for tomorrow 8:45am. TC placed to pt. And made pt. Aware. Pt. Also reports PT-1 expiredand would like it renewed for next time, to [facility] * Telephone Encounter - Ciera Carson - 05/10/2023 9:07 AM EDT Tc from pt calling in regards to message above. Pt also received a call, ad copy writer does not see any documentation. Please contact pt at [phone] * Telephone Encounter - Ciera Carson - 05/08/2023 12:54 PM EDT Tc from pt states will need uber transportation for 05/10 with provider. Please contact pt at [phone] documented in this encounter Plan of Treatment Upcoming Encounters Date Type Department Care Team (Late st Contact Info) Description 11/05/2024 10:00 AM EDT Office Visit [facility] OPTOMETRY [address] [place] [address] 11/05/2024 11:00 AM EDT Medication Management [facility] MEDICINE [address] [place] [address] Nelia Sullivan PharmD [address] [place] [address] 11/11/2024 1:00 PM EDT Office Visit [facility] MEDICINE [address] [place] [address] Vickie Penaloza MD [address] [place] [address] documented as of this encounter Goals Goal Patient Goal Type Associated Problems Recent Progress Patient-Stated? Author Hemoglobin A1c < 7 Result Component 10.1( 4:57 PM EDT) No Abdias Murillo, PharmAdrian documented as of this encounter Visit Diagnoses Not on filedocumented in this encounter Additional Health Concerns Assessment Noted Time PHQ-9 Depression Total Score: 4 11/09/19 23 11:27 AM EDT documented as of this encounter Care Teams Enterprise Sales Executive Relationship Specialty Start Date End Date Radha Jamison DO [address] [place] [address] PCP - General Family Medicine 01/26/12 Abdias Murillo, PharmD [address] [place] [address] Pharmacist Internal Medicine 03/21/22 08/30/23 Nelia Sullivan PharmD [address] [place] [address] Pharmacist Internal Medicine 08/31/23 Laurel Monterroso Curtain StitcherChainer 10/27/22 Saige Aguilar 09/26/23 documented as of this encounter
--- OUTSIDE RECORDS SUMMARY | 2024-10-22 11:29 | XMS_ITS | Encounter Summary ---
Author Organization [employer] Address 75 [facility] 7t [place] [address] Care Team Providers Care Rabbet Operator Name Role Phone Radha Jamison DO Primary Care Provider +1- [phone] Nelia Sullivan PharmD Unavailable [phone] Reason for Visit * Reason Onset Date Comments Returning Call 01/17/2024 Hospital Follow-up 01/17/2024 Encounter Details Date Type Department Care Team ([facility] st Contact Info) Description 01/17/2024 Telephone [facility] MEDICINE [address] [place] [address] Radha Jamison DO [address] [place] [address] Returning Call ; Hospital Follow-up Social History [...] t he electric, gas, oil or water Responsible City threatened to shut off services in your [...] Description 11/05/2024 10:00 AM EDT Office Visit [facility] OPTOMETRY [address] [place], [place] [phone] 11/05/2024 11:00 AM EDT Medication Management [facility] MEDICINE [address] [place] [address] Nelia Sullivan, PharmD [address] [place], [place] [phone] 11/11/2024 1:00 PM EDT Office Visit [facility] MEDICINE [address] [place] [address] Vickie Penaloza MD [address] [place] [address] documented as of this encounter Goals Goal [...] documented as of this encounter Care Teams Rabbet Operator Relationship Specialty Start Date End Date Radha Jamison DO [address] [place] [address] PCP - General Family Medicine 01/26/12 Puia, Nelia, PharmD [address] [place] [address] Pharmacist Internal Medicine 08/31/23 Laurel Monterroso Radio Message RouterLime Plant Operator 10/27/22 Saige Aguilar 09/26/23 documented as of this encounter
--- OUTSIDE RECORDS SUMMARY | 2024-10-22 11:29 | XMS_ITS | Encounter Summary ---
Author Organization [employer] Address 75 [facility] 7t [place] [address] Care Team Providers Care Cisco Administrator Name Role Phone Radha Jamison DO Primary Care Provider +1- [phone] Nelia Sullivan PharmD Unavailable [phone] Reason for Visit * Reason Comments Med Refill Encounter Details Date Type Department Care Team ([facility] Contact Info) Description 12/28/[address] [facility] MEDICINE [address] [place] [address] Radha Jamison DO [address] [place] [address] Chronic bilateral low back pain, unspecified whether [...] the past 12 months, has t he [employer], gas, oil or water [employer] threatened to shut off services in your [...] 10:00 AM EDT Office Visit [facility] OPTOMETRY [address] [place] [address] 11/05/2024 11:00 AM EDT Medication Management [facility] MEDICINE [address] [place] [address] Nelia Sullivan, PharmD [address] [place] [address] 11/11/2024 1:00 PM EDT Office Visit [facility] MEDICINE [address] [place] [address] Vickie Penaloza MD [address] [place] [address] documented as of this encounter Goals Goal [...] documented as of this encounter Care Teams Cisco Administrator Relationship Specialty Start Date End Date Radha Jamison DO [address] [place] [address] PCP - General Family Medicine 01/26/12 Nelia Sullivan PharmD [address] [place] [address] Pharmacist Internal Medicine 08/31/23 Laurel Monterroso Band BuilderGeneral Handling Supervisor 10/27/22 Saige Aguilar 09/26/23 documented as of this encounter
--- OUTSIDE RECORDS SUMMARY | 2024-10-22 11:29 | XMS_ITS | Encounter Summary ---
Author Organization [employer] Address 75 [facility] 7t [place] [address] Care Team Providers Care Honing Machine Try Out Setter Name Role Phone Radha Jamison DO Primary Care Provider +1- [phone] Nelia Sullivan PharmD Unavailable [phone] Reason for Visit * Reason Comments Med Refill Encounter Details Date Type Department Care Team ([facility] st Contact Info) Description 05/17/2024 Refill [facility] MEDICINE [address] [place] [address] Radha Jamison DO [address] [place] [address] Chronic bilateral low back pain, unspecified whether [...] the past 12 months, has t he [employer], gas, oil or water [employer] threatened to shut off services in your [...] Description 11/05/2024 10:00 AM EDT Office Visit [facility] OPTOMETRY [address] [place] [address] 11/05/2024 11:00 AM EDT Medication Management [facility] MEDICINE [address] [place] [address] Nelia Sullivan, PharmD [address] [place] [address] 11/11/2024 1:00 PM EDT Office Visit [facility] MEDICINE [address] [place] [address] Vickie Penaloza MD [address] [place] [address] documented as of this encounter Goals Goal [...] documented as of this encounter Care Teams Honing Machine Try Out Setter Relationship Specialty Start Date End Date Radha Jamison DO [address] [place] [address] PCP - General Family Medicine 01/26/12 Nelia Sullivan PharmD [address] [place] [address] Pharmacist Internal Medicine 08/31/23 Laurel Monterroso Frequency CheckerCustoms Entry Writer 10/27/22 Saige Aguilar 09/26/23 documented as of this encounter
--- OUTSIDE RECORDS SUMMARY | 2024-10-22 11:30 | XMS_ITS | Encounter Summary ---
Author Organization [employer] Address 75 [facility] 7t [place] [address] Care Team Providers Care Auricular Acupuncturist Name Role Phone Radha Jamison DO Primary Care Provider +1- [phone] Abdias Murillo PharmD Unavailable Unavail able Nelia Sullivan PharmD Unavailable [phone] Reason for Visit * Reason Onset Date Comments Med Refill 10/18/2022 Encounter Details Date Type Department Care Team (Late st Contact Info) Description 10/18/2022 Telephone [facility] MEDICINE [address] [place] [address] Radha Jamison DO [address] [place], [place] [phone] Med Refill Social History Tobacco Use Types [...] PCP needed re:controlled medication. Pt's hx with [facility] appts is as follows: 05/05: Pt short [...] team nurses. Any questions, contact pt at [phone] (Armenian) * Telephone Encounter - Acacia Chakraborty RN [...] Description 11/05/2024 10:00 AM EDT Office Visit [facility] OPTOMETRY [address] [facility] [phone] 11/05/2024 11:00 AM EDT Medication Management [facility] MEDICINE [address] [place] [address] Nelia Sullivan PharmD [address] [place] [address] 11/11/2024 1:00 PM EDT Office Visit [facility] MEDICINE [address] [place] [address] Vickie Penaloza MD [address] [place] [address] documented as of this encounter Goals Goal [...] documented as of this encounter Care Teams Auricular Acupuncturist Relationship Specialty Start Date End Date Radha Jamison DO [address] [place] [address] PCP - General Family Medicine 01/26/12 Abdias Murillo, PharmD [address] [place] [address] Pharmacist Internal Medicine 03/21/22 08/30/23 Nelia Sullivan PharmD [address] [place] [address] Pharmacist Internal Medicine 08/31/23 Laurel Monterroso Straightener Gun PartsCounselling Psychologist 10/27/22 Saige [facility] 09/26/23 documented as of this encounter
--- OUTSIDE RECORDS SUMMARY | 2024-10-22 11:30 | XMS_ITS | Encounter Summary ---
Author Organization [employer] Address 75 [facility] 7t [place] [address] Care Team Providers Care Control Panel Operator Crude Unit Name Role Phone Radha Jamison DO Primary Care Provider +1- [phone] Nelia Sullivan PharmD Unavailable [phone] Reason for Visit * Reason Comments Med Refill Encounter Details Date Type Department Care Team ([facility] Contact Info) Description 05/07/2024 Refill [facility] MEDICINE 230 [place], [place] [phone] Radha Jamison DO [address] [place] [address] Social History Tobacco Use Types Packs/Day Years [...] Description 11/05/2024 10:00 AM EDT Office Visit [facility] OPTOMETRY [address] [place], [place] [phone] 11/05/2024 11:00 AM EDT Medication Management [facility] MEDICINE [address] [place] [address] Nelia Sullivan PharmD [address] [place] [address] 11/11/2024 1:00 PM EDT Office Visit [facility] MEDICINE [address] [place] [address] Vickie Penaloza MD [address] [place] [address] documented as of this encounter Goals Goal Patient Goal Type Associated Problems Recent Progress Patient-Stated? Author Record your blood pressure once per day Blood Pressure No Nelia Sullivan, PharmD Blood Pressure < 140/90 Blood Pressure 140/80(2024 9:33 AM EDT) No Nelia Sullivan, PharmD Smoking cessation General No PuiaYazminsa, PharmD Patient will adhere to medication regimen General No Nelia Sullivan, PharmD Hemoglobin A1c < 7 Result Component 10.1(09/04/19 4:57 PM EDT) No Abdias Murillo, PharmAdrian Record your blood sugar as directed [...] documented as of this encounter Care Teams Control Panel Operator Crude Unit Relationship Specialty Start Date End Date Radha Jamison DO [address] [place] [address] PCP - General Family Medicine 01/26/12 Nelia Sullivan, PharmD [address] [place] [address] Pharmacist Internal Medicine 08/31/23 Laurel Monterroso Can TechnicianMedical Insurance Biller 10/27/22 Saige Aguilar 09/26/23 documented as of this encounter
--- OUTSIDE RECORDS SUMMARY | 2024-10-22 11:30 | XMS_ITS | Encounter Summary ---
Author Organization [employer] Address 75 [facility] 7t [place] [address] Care Team Providers Care Voltmeter Operator Name Role Phone Radha Jamison DO Primary Care Provider Abdias Murillo PharmD Unavailable Unavail able Nelia Sullivan PharmD Unavailable [phone] Reason for Visit * Reason Onset Date Comments Durable Medical Equipment 09/08/2022 Encounter Details Date Type Department Care Team (Late st Contact Info) Description 09/08/2022 Telephone [facility] MEDICINE [address] [place] [address] Radha Jamison DO [address] [place] [address] Durable Medical Equipment Social History Tobacco Use [...] is not working. Please contact pt at [phone] documented in this encounter Plan of Treatment Upcoming Encounters Date Type Department Care Team (Late st Contact Info) Description 11/05/2024 10:00 AM EDT Office Visit [facility] OPTOMETRY [address] [place] [address] 11/05/2024 11:00 AM EDT Medication Management [facility] MEDICINE [address] [place] [address] Nelia Sullivan PharmD [address] [place] [address] 11/11/2024 1:00 PM EDT Office Visit [facility] MEDICINE [address] [place] [address] Vickie Penaloza MD [address] [place] [address] documented as of this encounter Goals Goal [...] documented as of this encounter Care Teams Voltmeter Operator Relationship Specialty Start Date End Date Radha Jamison DO [address] [place] [address] PCP - General Family Medicine 01/26/12 Abdias Murillo, PharmD [address] [place] [address] Pharmacist Internal Medicine 03/21/22 08/30/23 Nelia Sullivan, KeithD [address] [place] [address] Pharmacist Internal Medicine 08/31/23 Laurel Monterroso Supply ManagerYarn Comber 10/27/22 Saige Aguilar 09/26/23 documented as of this encounter
--- OUTSIDE RECORDS SUMMARY | 2024-10-22 11:30 | XMS_ITS | Encounter Summary ---
Author Organization [employer] Address 75 [facility] 7t [place] [address] Care Team Providers Care Psychiatric Clinical Nurse Specialist Name Role Phone Radha Jamison DO Primary Care Provider [phone]- [phone] Abdias Murillo PharmD Unavailable Unavail able Nelia Sullivan PharmD Unavailable [phone] Reason for Visit * Reason Comments Med Refill Encounter Details Date Type Department Care Team (Late st Contact Info) Description 11/08/2022 Refill [facility] MEDICINE [address] [place] [address] Radha Jamison DO [address] [place] [address] Social History Tobacco Use Types Packs/Day Years [...] Description 11/05/2024 10:00 AM EDT Office Visit [facility] OPTOMETRY [address] [place] [address] 11/05/2024 11:00 AM EDT Medication Management [facility] MEDICINE [address] [place] [address] Nelia Sullivan PharmD [address] [place] [address] 11/11/2024 1:00 PM EDT Office Visit [facility] MEDICINE [address] [place] [address] Vickie Penaloza MD [address] [place] [address] documented as of this encounter Goals Goal [...] documented as of this encounter Care Teams Psychiatric Clinical Nurse Specialist Relationship Specialty Start Date End Date Radha Jamison DO [address] [place] [address] PCP - General Family Medicine 01/26/12 Abdias Murillo, PharmD [address] [place] [address] Pharmacist Internal Medicine 03/21/22 08/30/23 Nelia Sullivan PharmD [address] [place] [address] Pharmacist Internal Medicine 08/31/[address] Laurel Monter[address]so [address] Of [address] WorkerSenior Engineering Manager 10/27/22 Saige Aguilar 09/26/23 documented as of this encounter
--- OUTSIDE RECORDS SUMMARY | 2024-10-22 11:30 | XMS_ITS | Encounter Summary ---
Author Organization [employer] Address 75 [facility] 7t [place] [address] Care Team Providers Care Honey Producer Name Role Phone Radha Jamison DO Primary Care Provider Abdias Murillo PharmD Unavailable Unavail able Nelia Sullivan PharmD Unavailable Reason for Visit * Reason Comments Med Refill Encounter Details Date Type Department Care Team ([facility] Contact Info) Description 10/25/2022 Refill [facility] MEDICINE [address] [place] [address] Radha Jamison DO [address] [place] [address] Chronic bilateral low back pain, unspecified whether [...] Department Care Team (Late Contact Info) Description 11/05/2024 10:00 AM EDT Office Visit [facility] OPTOMETRY [address] [place], [place] [phone] 11/05/2024 11:00 AM EDT Medication Management [facility] MEDICINE 230 [place] [address] Nelia Sullivan PharmD [facility] [place] [address] 11/11/2024 1:00 PM EDT Office Visit [facility] MEDICINE [address] [place] [address] Vickie Penaloza MD [address] [facility] [place] [address] documented as of this encounter Goals Goal Patient Goal Type Associated Problems Recent Progress Patient-Stated? Author Hemoglobin A1c < 7 Result Component 10.1( 4:57 PM EDT) No Abdias Murillo PharmD documented as of this encounter Visit Diagnoses Diagnosis Chronic bilateral low back pain, unspecified whether sciatica present documented in this encounter Additional Health Concerns Assessment Noted Time PHQ-9 Depression Total Score: 14 023 12:00 PM EST documented as of this encounter Care Teams Honey Producer Relationship Specialty Start Date End Date Radha Jamison DO [facility] [address] PCP - General Family Medicine 01/26/12 Abdias Murillo, Camron [address] [place] [address] Pharmacist Internal Medicine 03/21/22 08/30/23 Nelia Sullivan PharmD [address] [place] [address] [place] [address] Pharmacist Internal Medicine 08/31/23 Laurel Monterroso Furnace FitterBatch And Furnace Manager 10/27/22 Saige Aguilar 09/26/23 documented as of this encounter
--- OUTSIDE RECORDS SUMMARY | 2024-10-22 11:30 | XMS_ITS | Encounter Summary ---
Author Organization [employer] Address 75 [facility] 7t [place] [address] Care Team Providers Care Line Patrolman Name Role Phone Radha Jamison DO Primary Care Provider +1- [phone] Nelia Sullivan PharmD Unavailable [phone] Reason for Visit * Reason Comments Med Refill Encounter Details Date Type Department Care Team ([facility] st Contact Info) Description 05/17/2024 Refill [facility] MEDICINE [address] [place] [address] Radha Jamison DO [address] [place] [address] Chronic bilateral low back pain, unspecified whether [...] the past 12 months, has t he [employer], gas, oil or water [employer] threatened to shut off services in your [...] Description 11/05/2024 10:00 AM EDT Office Visit [facility] OPTOMETRY [address] [place] [address] 11/05/2024 11:00 AM EDT Medication Management [facility] MEDICINE [address] [place] [address] Nelia Sullivan, PharmD [address] [place] [address] 11/11/2024 1:00 PM EDT Office Visit [facility] MEDICINE [address] [place] [address] Vickie Penaloza MD [address] [place] [address] documented as of this encounter Goals Goal [...] as of this encounter Care Teams Line Patrolman Relationship Specialty Start Date End Date Radha Jamison DO [address] [place] [address] PCP - General Family Medicine 01/26/12 Nelia Sullivan PharmD [address] [place] [address] Pharmacist Internal Medicine 08/31/23 Laurel Monterroso Manager AmbulatoryAssembly Supervisor 10/27/22 Saige Aguilar 09/26/23 documented as of this encounter
--- OUTSIDE RECORDS SUMMARY | 2024-10-22 11:30 | XMS_ITS | Encounter Summary ---
Author Organization [employer] Address 75 [facility] 7t [place] [address] Care Team Providers Care Content Manager Name Role Phone Radha Jamison DO Primary Care Provider DelAbdias hardy PharmD Unavailable Unavail able Nelia Sullivan PharmD Unavailable [phone] Reason for Visit * Reason Comments Med Refill Encounter Details Date Type Department Care Team ([facility] Contact Info) Description 11/10/2022 Refill [facility] MEDICINE [address] [place] [address] Radha Jamison DO 230 [place] [address] Chronic gastroesophageal reflux disease Social History Tobacco [...] Upcoming Encounters Date Type Department Care Team ([facility] Contact Info) Description 11/05/2024 10:00 AM EDT Office Visit [facility] OPTOMETRY [address] [place], [place] [address] 11/05/2024 11:00 AM EDT Medication Management [facility] MEDICINE [address] [place] [address] Nelia Sullivan PharmD [address] [place] [address] 11/11/2024 1:00 PM EDT Office Visit [facility] MEDICINE [address] [place] [address] Vickie Penaloza MD [address] [place] [address] documented as of this encounter Goals Goal [...] documented as of this encounter Care Teams Content Manager Relationship Specialty Start Date End Date Radha [place] [address] PCP - General Family Medicine 01/26/12 Abdias Murillo, PharmD [address] [place] [address] Pharmacist Internal Medicine 03/21/22 08/30/23 Nelia Sullivan PharmD [address] [place] [place] [address] Pharmacist Internal Medicine 08/31/23 Laurel Monterroso Automation Control TechnicianShredding Machine Tender 10/27/22 Saige Aguilar 09/26/23 documented as of this encounter
--- OUTSIDE RECORDS SUMMARY | 2024-10-22 11:30 | XMS_ITS | Encounter Summary ---
Author Organization [employer] Address [address] [facility] [address] 7t [place] [address] Care Team Providers Care Solution Spec Name Role Phone Radha Jamison DO Primary Care Provider +1- [phone] Abdias Murillo PharmD Unavailable Unavail able Nelia Sullivan PharmD Unavailable [phone] Encounter Details Date Type Department Care Team (Late st Contact Info) Description 06/15/2023 Orders Only [facility] MEDICINE [address] [place] [address] Radha Jamison DO [address] [place], [place] [address] Stenosis of right carotid artery Social History [...] AM EDT Office Visit [facility] OPTOMETRY [address] [place] [address] 11/05/2024 11:00 AM EDT Medication Management [facility] MEDICINE [address] [place] [address] Nelia Sullivan PharmD [address] [place] [address] 11/11/2024 1:00 PM EDT Office Visit [facility] MEDICINE [address] [place] [address] Vickie Penaloza MD [address] [place] [address] documented as of this encounter Goals Goal [...] documented as of this encounter Care Teams Solution Spec Relationship Specialty Start Date End Date Radha Jamison DO [address] [place] [address] PCP - General Family Medicine 01/26/12 Abdias Murillo, KeithD [address] [place] [address] Pharmacist Internal Medicine 03/21/22 08/30/23 Nelia Sullivan PharmD [address] [place] [address] Pharmacist Internal Medicine 08/31/23 Laurel Monterroso Nut CullerSlot Machine Department Floorperson 10/27/22 Saige Aguilar 09/26/23 documented as of this encounter
--- OUTSIDE RECORDS SUMMARY | 2024-10-22 11:30 | XMS_ITS | Encounter Summary ---
Author Organization [employer] Address 75 [facility] 7t [place] [address] Care Team Providers Care Blanker Press Operator Name Role Phone Radha Jamison DO Primary Care Provider [phone]- [phone] Abdias Murillo PharmD Unavailable Unavail able Nelia Sullivan PharmD Unavailable [phone] Reason for Visit * Reason Comments Med Refill Encounter Details Date Type Department Care Team (Late st Contact Info) Description 06/06/2023 Refill [facility] [address] [place] [address] Radha Jamison DO [address] [place] [address] Chronic bilateral low back pain, unspecified whether [...] Description 11/05/2024 10:00 AM EDT Office Visit [facility] OPTOMETRY [address] [place] [address] 11/05/2024 11:00 AM EDT Medication Management [facility] MEDICINE [address] [place] [address] Nelia Sullivan PharmD [address] [place] [address] 11/11/2024 1:00 PM EDT Office Visit [facility] MEDICINE [address] [place] [address] Vickie Penaloza MD [address] [place] [address] documented as of this encounter Goals Goal [...] documented as of this encounter Care Teams Blanker Press Operator Relationship Specialty Start Date End Date Radha Jamison DO [address] [place] [address] PCP - General Family Medicine 01/26/12 Abdias Murillo, KeithD [address] [place] [address] Pharmacist Internal Medicine 03/21/22 08/30/23 Nelia Sullivan, Camron [address] [place] [address] Pharmacist Internal Medicine 08/31/23 Laurel Monterroso Credit Risk AssociateDirector Of Housing And Energy Services 10/27/22 Saige Aguilar 09/26/23 documented as of this encounter
--- OUTSIDE RECORDS SUMMARY | 2024-10-22 11:30 | XMS_ITS | Encounter Summary ---
Author Organization [employer] Address [address] [facility] 7t [place] [address] Care Team Providers Care Clinical Tech Name Role Phone Radha Jamison DO Primary Care Provider Abdias Murillo PharmD Unavailable Unavail able Nelia Sullivan PharmD Unavailable [phone] Reason for Visit * Reason Comments Med Refill Encounter Details Date Type Department Care Team (Late st Contact Info) Description 08/11/2022 Refill [facility] MEDICINE [address] [place] [address] Radha Jamison DO [address] [place] [address] Anemia, unspecified type Social History Tobacco Use [...] for patient to contact Mary Reynolds at [phone]. documented in this encounter Plan of Treatment Upcoming Encounters Date Type Department Care Team (Late st Contact Info) Description 11/05/2024 10:00 AM EDT Office Visit [facility] OPTOMETRY [address] [place], [place] [phone] 11/05/2024 11:00 AM EDT Medication Management [facility] MEDICINE [address] [place] [address] Nelia Sullivan PharmD [address] [place] [address] 11/11/2024 1:00 PM EDT Office Visit [facility] MED[facility]INE [address] [place] [address] Vikcie Penaloza MD [address] [place] [address] documented as of this encounter Goals Goal [...] documented as of this encounter Care Teams Clinical Tech Relationship Specialty Start Date End Date Radha Jamison DO [address] [place] [address] PCP - General Family Medicine 01/26/12 Abdias Murillo, PharmD [address] [place] [address] Pharmacist Internal Medicine 03/21/22 08/30/23 Nelia Sullivan, PharmD [address] [place] [address] Pharmacist Internal Medicine 08/31/23 Laurel Monterroso Firepot Operator And TenderAssembler Wire Mesh Gate 10/27/22 Saige Aguilar 09/26/23 documented as of this encounter
--- OUTSIDE RECORDS SUMMARY | 2024-10-22 11:30 | XMS_ITS | Encounter Summary ---
Author Organization [email or web address] Address [address] [facility] 7t [place] [address] Care Team Providers Care Director Transportation Name Role Phone Radha Jamison DO Primary Care Provider Abdias Murillo PharmD Unavailable Unavail able Nelia Sullivan PharmD Unavailable [phone] Reason for Visit * Reason Onset Date Comments Med Refill 10/24/2022 Encounter Details Date Type Department Care Team (Late st Contact Info) Description 10/24/2022 Telephone [facility] MEDICINE [address] [place] [address] Radha Jamison DO [address] [place], [place] [phone] Med Refill Social History Tobacco Use Types [...] 11/05/2024 10:00 AM EDT Office Visit [facility] OPTOMETRY [address] [place], [place] [phone] 11/05/2024 11:00 AM EDT Medication Management [facility] MEDICINE [address] [place] [address] Nelia Sullivan PharmD [address] [place] [address] 11/11/2024 1:00 PM EDT Office Visit [facility] MEDICINE [address] [place] [address] Vickie Penaloza MD [address] [place] [address] documented as of this encounter Goals Goal [...] as of this encounter Care Teams Director Transportation Relationship Specialty Start Date End Date Radha Jamison DO [address] [place] [address] PCP - General Family Medicine 01/26/12 Abdias Murillo, PharmD [address] [place] [address] Pharmacist Internal Medicine 03/21/22 08/30/23 Nelia Sullivan, PharmD [address] [place] [address] Pharmacist Internal Medicine 08/31/23 Laurel Monterroso Respiratory Care InstructorStore Operations Specialist 10/27/22 Saige Aguilar 09/26/23 documented as of this encounter
--- OUTSIDE RECORDS SUMMARY | 2024-10-22 11:30 | XMS_ITS | Encounter Summary ---
Author Organization [employer] Address [address] [facility] 7t [place] [address] Care Team Providers Care Case Manager Name Role Phone Radha Jamison DO Primary Care Provider Abdias Murillo PharmD Unavailable Unavail able Nelia Sullivan PharmD Unavailable [phone] Encounter Details Date Type Department Care Team ([facility] st Contact Info) Description 10/10/[address] [facility] MEDICINE [address] [place] [address] Radha Jamison DO [address] [place] [address] Social History Tobacco Use Types Packs/Day Years [...] Description 11/05/2024 10:00 AM EDT Office [address] [facility] OPTOMETRY [address] [place] [address] 11/05/2024 11:[address] EDT [address] [facility] MEDICINE [address] [place] [address] Nelia Sullivan PharmD [address] [place] [address] 11/11/2024 1:00 PM EDT Office Visit [facility] MEDICINE [address] [place] [address] Vickie Penaloza MD [address] [place] [address] documented as of this encounter Goals Goal [...] documented as of this encounter Care Teams Case Manager Relationship Specialty Start Date End Date Radha Jamison DO [address] [place] [address] PCP - General Family Medicine 01/26/12 Abdias Murillo PharmD [address] [place] [address] Pharmacist Internal Medicine 03/21/22 08/30/23 Nelia Sullivan PharmD [address] [place] [address] Pharmacist Internal Medicine 08/31/23 Laurel Monterroso Deputy CoronerBelt Molder 10/27/22 Saige Aguilar 09/26/23 documented as of this encounter
--- OUTSIDE RECORDS SUMMARY | 2024-10-22 11:30 | XMS_ITS | Encounter Summary ---
Author Organization [employer] Address [address] [facility] 7t [place] [address] Care Team Providers Care Hand Rug Braider Name Role Phone Radha Jamison DO Primary Care Provider [phone] Abdias Murillo PharmD Unavailable Unavail able Nelia Sullivan PharmD Unavailable [phone] Reason for Visit * Reason Comments Med Refill Encounter Details Date Type Department Care Team (Late st Contact Info) Description 08/30/2023 Refill [facility] MEDICINE [address] [place] [address] Radha Jamison DO [address] [place] [address] Chronic bilateral low back pain, unspecified whether [...] 10:00 AM EDT Office Visit [facility] OPTOMETRY [address] [place] [address] 11/05/2024 11:00 AM EDT Medication Management [facility] MEDICINE [address] [place] [address] Nelia Sullivan, PharmD [address] [place] [address] 11/11/2024 1:00 PM EDT Office Visit [facility] MEDICINE [address] [place] [address] Vickie Penaloza MD [address] [place] [address] documented as of this encounter Goals Goal [...] as of this encounter Care Teams Hand Rug Braider Relationship Specialty Start Date End Date Radha Jamison DO [address] [place] [address] PCP - General Family Medicine 01/26/12 Abdias Murillo PharmD [address] [place] [address] Pharmacist Internal Medicine 03/21/22 08/30/23 Nelia Sullivan PharmD [address] [place] [address] Pharmacist Internal Medicine 08/31/23 Laurel Monterroso [employer] Intelligence OfficerField Inspector 10/27/22 Saige Aguilar 09/26/23 documented as of this encounter
--- OUTSIDE RECORDS SUMMARY | 2024-10-22 11:30 | XMS_ITS | Encounter Summary ---
Author Organization [employer] Address [address] [facility] 7t [place] [address] Care Team Providers Care Radiator Specialist Name Role Phone Radha Jamison DO Primary Care Provider [phone] Abdias Murillo PharmD Unavailable Unavail able Nelia Sullivan PharmD Unavailable [phone] Reason for Visit * Reason Comments Med Refill Encounter Details Date Type Department Care Team (Late st Contact Info) Description 04/14/2023 Refill [facility] MEDICINE [address] [place], [place] [phone] Radha Jamison DO [address] [place], [place] [phone] Type 2 diabetes mellitus with hyperglycemia, with long-term current use of insulin ([facility]) Social History [...] Description 11/05/2024 10:00 AM EDT Office Visit [facility] OPTOMETRY [address] [place] [address] 11/05/2024 11:00 AM EDT Medication Management [facility] MEDICINE [address] [place] [address] Nelia Sullivan PharmD [address] [place] [address] 11/11/2024 1:00 PM EDT Office Visit [facility] MEDICINE [address] [place] [address] Vickie Penaloza MD [address] [place] [address] documented as of this encounter Goals Goal Patient Goal Type Associated Problems Recent Progress Patient-Stated? Author Hemoglobin A1c < 7 Result Component 10.1( 4:57 PM EDT) No Abdias Murillo, PharmD documented as of this encounter Visit Diagnoses Diagnosis Type 2 diabetes mellitus with hyperglycemia, with long-term current use of insulin ([facility]) documented in this encounter Additional Health Concerns Assessment Noted Time PHQ-9 Depression Total Score: 4 11/09/19 23 11:27 AM EDT documented as of this encounter Care Teams Radiator Specialist Relationship Specialty Start Date End Date Radha Jamison DO [address] [place] [address] PCP - General Family Medicine 01/26/12 Abdias Murillo PharmD [address] [place] [address] Pharmacist Internal Medicine 03/21/22 08/30/23 Nelia Sullivan PharmD [address] [place] [address] Pharmacist Internal Medicine 08/31/23 Laurel Monterroso Natural Gas TraderPediatric Radiologist 10/27/22 Saige Aguilar 09/26/23 documented as of this encounter
--- OUTSIDE RECORDS SUMMARY | 2024-10-22 11:30 | XMS_ITS | Encounter Summary ---
Author Organization [employer] Address [address] [facility] 7t [place] [address] Care Team Providers Care Accounting Specialist Name Role Phone Radha Jamison DO Primary Care Provider [phone] Nelia Sullivan PharmD Unavailable [phone] Reason for Visit * Reason Comments Med Refill Encounter Details Date Type Department Care Team ([facility] Contact Info) Description 01/06/2024 Refill [facility] MEDICINE [address] [place] [address] Radha Jamison DO [address] [place] [address] Depression, unspecified depression type; Essential (primary) hypertension [...] the past 12 months, has t he [facility], gas, oil or water [facility] threatened to shut off services in your [...] 10:00 AM EDT Office Visit [facility] OPTOMETRY [address] [place] [address] 11/05/2024 11:00 AM EDT Medication Management [facility] [address] [place] [phone] Nelia Sullivan, PharmD [address] [place] [address] 11/11/2024 1:00 PM EDT Office Visit [facility] MEDICINE [address] [place] [address] Vickie Penaloza MD [address] [place] [address] documented as of this encounter Goals Goal [...] documented as of this encounter Care Teams Accounting Specialist Relationship Specialty Start Date End Date Radha Jamison DO [address] [place] [address] PCP - General Family Medicine 01/26/12 Nelia Sullivan PharmD [address] [place] [address] Pharmacist Internal Medicine 08/31/23 Laurel Monterroso Vocational Rehabilitation AdministratorFishing Reel Assembler 10/27/22 Saige Aguilar 09/26/23 documented as of this encounter
--- OUTSIDE RECORDS SUMMARY | 2024-10-22 11:30 | XMS_ITS | Clinical Summary ---
Author Organization [employer] Address [address] [facility] [address] [place] [address] Care Team Providers Care Equine Manager Name Role Phone DenniseRadha broussard Primary Care Provider Nelia Sullivan PharmD Unavailable [phone] Allergies Active Allergy Reactions Criticality Noted [...] with long-term current use of insulin ([facility]) TAKE 1 TABLET BY MOUTH EVERY MORNING [...] 30 tablet 024 2024 Active Continuous Glucose Field Operations Supervisor (FreeStyle Jenn 3 [place]) device 1 each 3 times daily. Use [...] each 025 2025 Active TRUEplus Lancets 33G [facility] TEST BLOOD SUGAR UP TO THREE TIMES [...] presence unspecified, unspecified laterality, unspecified whether termite treater insulin use ([facility]) Inject 14 Units under the skin at [...] Active insulin pen needle (Pentips Generic Pen [place]) 32G x 4 mm miscIndications:Ty pe 2 diabetes mellitus with hyperglycemia, with long-term current use of insulin ([facility]) Use as instructed to inject insulin once daily 100 each 3 025 Active Semaglutide,0.25 or 0.5MG/DOS, (Ozempic, 0.25 or 0.5 MG/DOSE,) 2 MG/3ML solution pen-injectorIndica tions:Type 2 diabetes mellitus with hyperglycemia, with long-term current use of insulin ([facility]) Inject 0.5 mg under the skin 1 (one) time per week. 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 (CMS/HCC) Place [...] hyperglycemia, with long-term current use of insulin ([facility]) TAKE 1 TABLET BY MOUTH TWICE DAILY IN THE MORNING AND IN THE EVENING WITH FOOD 025 2024 Discontinued(M ed list cleanup (will not trigger notification to Pharmacy)) Pentips Generic Pen [place] 32G X 4 MM misc USE DIRECTED [...] artery disease of n ative artery of shoalwater heart with stable angina pectoris 10/03/2024 Assessment [...] B vaccine -pap wnl May 2014 with 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, advised schedule f/u, contact info given -mammo [...] -she will meet w/ HIM 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 Obstructive sleep apnea 12/04/2014 Tobacco dependence [...] actos as rx'd -referred to [facility] pharm for CTDM -cont regular FS monitoring [...] the day and to continue care w field rep and PCP ------ Addendum : 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 but once 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 taken to ambulance pt decide not to go to ED and signed leave AMA 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 05/04/2020 03/18/2022 Encounters Date Type Department Care Team Description 10/21/2024 Refill [facility] [address] [place] [id number] Radha Jamison DO Mild persistent asthma without complication 10/18/2024 Patient Outreach [address] [address] Radha Jamison DO Transition Of Care (Tcm) (HDF scheduled) 10/15/2024 Orders Only GENERIC EXTERNAL DATA DEPARTMENT Provider, Generic External Data 10/07/[address] [address] Radha Jamison DO Nurse Triage 10/03/2024 9:30 AM EDT Office Visit [address] [address] Vickie Penaloza MD Type 2 diabetes mellitus with hyperglycemia, with long-term current use of insulin ([facility]) (Primary Dx); Splenic infarct; 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 ([facility]); Chronic bilateral low back pain, unspecified whether sciatica present 10/03/2024 Travel 10/02/2024 Telephone [facility] [address] [place] [address] Radha Jamison DO chart prep 10/02/2024 Refill [facility] [address] [place] [address] Radha Jamison DO Mood disorder (CMS/HCC) 10/01/2024 Refill [facility] [address] [place] [address] Radha Jamison DO Hypertension, unspecified type 09/24/2024 Orders Only GENERIC EXTERNAL DATA DEPARTMENT Provider, Generic External Data 09/24/2024 Travel 09/22/2024 Refill [facility] [address] [place] [address] Radha Jamison DO 09/19/2024 Telephone [facility] [address] [place] [address] Radha Jamison DO Nurse Triage 09/19/2024 Telephone [facility] [address] [place] [address] Radha Jamison DO Nurse Triage 09/11/2024 Patient Outreach [facility] [address] [place] [address] Radha Jaimson DO Transition Of Care (Tcm) (HDF- Scheduled ) 09/10/2024 Refill [facility] [address] [place] [address] Radha Jamison DO 09/09/2024 Refill [facility] [address] [place] [address] Radha Jamison DO Hypertension, unspecified type 09/03/2024 Travel 09/02/2024 Patient Outreach [facility] [address] [place] [address] Radha Jamison DO Transition Of Care (Tcm) (HDF- Unscheduled LVM ) 09/02/2024 Telephone [facility] [address] [place] [address] Patricia Rinaldi, PharmD 08/23/[address] [address] Radha Jamison DO Appointment Request 08/13/2024 Travel 08/08/2024 Orders Only GENERIC EXTERNAL DATA DEPARTMENT Provider, Generic External Data 08/07/2024 Telephone [facility] [place] [place] [address] Radha Jamison DO Nurse Triage 07/24/2024 4:00 PM EDT Office Visit [address] [address] Crystal Merino MD Left leg swelling (Primary Dx); Left hip pain; Dietary counseling; Exercise counseling; Overweight; Peripheral arterial disease ([facility]/HCC); Status post femoral-popliteal bypass surgery; Type 2 diabetes mellitus with hyperglycemia, with long-term current use of insulin ([facility]); Chronic bilateral low back pain with left-sided sciatica; Spinal stenosis of lumbar region, unspecified whether neurogenic claudication present 07/24/2024 Orders Only [address] [address] Radha Jamison DO 07/24/[address] [address] Radha Jamison DO No Show (Pt no show for sick on site ) 07/22/[address] [address] Radha Jamison DO Nurse Triage from Last 3 Months Immunizations Immunization Administration [...] Description 11/05/2024 10:00 AM EDT Office Visit [facility] [address] [place] [address] 11/05/2024 11:00 AM EDT Medication Management [facility] [address] [place] [address] Nelia Sullivan, PharmD [address] [place] [address] 11/11/2024 1:00 PM EDT Office Visit [facility] [address] [place] [address] Vickie Penaloza MD [address] [place] [address] Health Maintenance Due Date Last Done Comments [...] years 1-dose series) 2021 Mammogram 10/07/2023 10/06/2021 Diabetes: Urine Protein Screening 05/14/2024 05/15/2023, 08/08/2022, 10/01/2021, Additional history exists Depression Monitoring 06/19/2024 12/21/2023, 024 COVID-19 Vaccine ( season) 2024 10/02/2020 Influenza Vaccine (#1) 2024 11/18/2013, 2009 Diabetes: [...] Procedure Name Priority Date/Time Associated Diagnosis Comments VASC US CAROTID ARTERY DUPLEX BILATERAL Routine 10/15/2024 1:19 PM EDT CTA HEAD NECK W AND WO CONTRAST Routine 10/15/2024 6:06 AM EDT XR CHEST 1 VIEW Routine 10/15/2024 4:29 AM EDT MAGNESIUM Routine 10/15/2024 2:37 AM EDT COMPREHENSIVE METABOLIC PANEL Routine 10/15/2024 2:37 AM EDT HIGH SENSITIVITY TROPONIN I Routine 10/15/2024 2:37 AM EDT POCT GLUCOSE Routine 10/03/2024 9:39 AM EDT Type 2 diabetes mellitus with hyperglycemia, with long-term current use of insulin ([facility]) BASIC METABOLIC PANEL Routine 09/24/2024 11:19 AM EDT POCT GLYCATED HEMOGLOBIN, TOTAL Routine 09/03/2024 4:57 PM EDT Type 2 diabetes mellitus with hyperglycemia, with long-term current use of insulin ([facility]) BASIC METABOLIC PANEL Routine 08/08/2024 12:01 PM [...] Recently Relevant to Health Maintenance Results * VASC US Carotid Artery Duplex Bilateral (10/15/2024 1:19 PM EDT) 10/15/2024 1:19 PM EDT Narrative [facility] - 10/15/2024 2:54 PM EDT [address] [address] Ultrasound Report Signed Patient: Rocío Hallman MR#: [id number] : 1960 Acct:[id number] Age/Sex: 63 / F ADM Date: 10/15/24 Loc: [facility] [address]: Alan Lopez MD Ordering Physician: Caleb Aragon MD Date of Service: 10/15/24 Procedure(s): US carotid duplex BI Accession Number(s): [id number] cc: [facility]; Caleb Aragon MD Reason for Exam: High-grade left carotid stenosis EXAMINATION: US EXTRACRANIAL CAROTID DUPLEX, BILATERAL CLINICAL INFORMATION: High degree stenosis, left carotid artery. COMPARISON: Correlated to CT angiogram head neck dated October 15, 2024 at 4:35 AM. TECHNIQUE: Real-time ultrasound and Doppler techniques (integrating B-mode 2-D vascular images, Doppler spectral analysis and color-flow Doppler imaging) were utilized to interrogate the extracranial carotid arteries, the vertebral arteries and proximal subclavian arteries bilaterally. The degree of stenosis is determined by criteria similar to NASCET. FINDINGS: Right Side: 1. There is irregular shaped mixed atherosclerotic plaque seen in the bifurcation/proximal ICA region. 2. The common carotid artery PSV proximally is 76 cm/s and distally 91 cm/s. 3. The proximal internal carotid artery velocities are 81 cm/s systolic and 31 cm/s diastolic. Distal segment: 128 cm/s. 4. The proximal external carotid artery PSV is 235 cm/s. 5. The vertebral artery shows antegrade flow. 6. The subclavian artery waveforms are triphasic. ICA/CCA ratio: 1.7. Left Side: 1. There is irregular shaped mixed atherosclerotic plaque seen in the bifurcation/proximal ICA region. 2. The common carotid artery PSV proximally is 84 cm/s and distally 158 cm/s. 3. The proximal internal carotid artery velocities are 362 cm/s systolic and 130 cm/s diastolic. Spectral broadening. 4. The proximal external carotid artery PSV is 321 cm/s. 5. The vertebral artery shows antegrade flow. 6. The subclavian artery waveforms are triphasic. ICA/CCA ratio: 4.4 US/US carotid duplex BI IMPRESSION: 1. RIGHT: Irregular shaped mixed plaque. 50-79% stenosis by ultrasound criteria. 2. LEFT: Irregular shaped mixed plaque. 80-99% stenosis by ultrasound criteria. Please refer to the CT angiogram head neck dated October 15, 2024. Electronically signed by: Sam Early MD 10/15/2024 02:51 PM EDT Dictated By: Sam Rhodes MD Signed By: <Electronically signed by Sam Tomlinson MD in OV> 10/15/24 1451 DD/ 1319 TD/TT: 10/15/24 1342 Financial Services Professional: Procedure Note Donotuseinterpreter, Image - 10/15/[address] [address] Ultrasound Report Signed Patient: Rocío HallmanMR#: [id number] : 1960cct:[id number] Age/Sex: 63 / FADM Date: 10/15/24 Loc: [facility]: Alan Lopez MD Ordering Physician: Caleb Aragon MD Date of Service: 10/15/24 Procedure(s): US carotid duplex BI Accession Number(s): [id number] cc: [facility]; Caleb Aragon MD Reason for Exam: High-grade left carotid stenosis EXAMINATION: US EXTRACRANIAL CAROTID DUPLEX, BILATERAL CLINICAL INFORMATION: High degree stenosis, left carotid artery. COMPARISON: Correlated to CT angiogram head neck dated October 15, 2024 at 4:35 AM. TECHNIQUE: Real-time ultrasound and Doppler techniques (integrating B-mode 2-D vascular images, Doppler spectral analysis and color-flow Doppler imaging) were utilized to interrogate the extracranial carotid arteries, the vertebral arteries and proximal subclavian arteries bilaterally. The degree of stenosis is determined by criteria similar to NASCET. FINDINGS: Right Side: 1. There is irregular shaped mixed atherosclerotic plaque seen in the bifurcation/proximal ICA region. 2. The common carotid artery PSV proximally is 76 cm/s and distally 91 cm/s. 3. The proximal internal carotid artery velocities are 81 cm/s systolic and 31 cm/s diastolic. Distal segment: 128 cm/s. 4. The proximal external carotid artery PSV is 235 cm/s. 5. The vertebral artery shows antegrade flow. 6. The subclavian artery waveforms are triphasic. ICA/CCA ratio: 1.7. Left Side: 1. There is irregular shaped mixed atherosclerotic plaque seen in the bifurcation/proximal ICA region. 2. The common carotid artery PSV proximally is 84 cm/s and distally 158 cm/s. 3. The proximal internal carotid artery velocities are 362 cm/s systolic and 130 cm/s diastolic. Spectral broadening. 4. The proximal external carotid artery PSV is 321 cm/s. 5. The vertebral artery shows antegrade flow. 6. The subclavian artery waveforms are triphasic. ICA/CCA ratio: 4.4 US/US carotid duplex BI IMPRESSION: 1. RIGHT: Irregular shaped mixed plaque. 50-79% stenosis by ultrasound criteria. 2. LEFT: Irregular shaped mixed plaque. 80-99% stenosis by ultrasound criteria. Please refer to the CT angiogram head neck dated October 15, 2024. Electronically signed by: Sam Ealry MD 10/15/2024 02:51 PM EDT Dictated By: Sam Rhodes MD Signed By: <Electronically signed by Sam Tomlinson MDin OV> 10/15/24 1451 DD/ 1319 TD/TT: 10/15/24 1342 Financial Services Professional: us [facility] External Provider CV VASC ULAR PROCEDURES Final Result [facility] [address] [place] [address] * CTA Head Neck w/ and w/o Contrast (10/15/2024 6:06 AM EDT) Anatomical Region Laterality Modality Head, Neck Computed Tomogra phy 10/15/2024 6:06 AM EDT Narrative 10/15/2024 6:08 AM EDT [address] [address] [address] Scan Report Signed with Rosendo Patient: Rocío Hallman MR#: [id number] : 1960 Acct:[id number] Age/Sex: 63 / F ADM Date: 10/15/24 Loc: HO.ED Attending Dr: Ordering Physician: Cornelia Clark DO Date of Service: 10/15/24 Procedure(s): CT angio head neck Accession Number(s): [id number] cc: Cornelia Clark DO; [facility] Report Number: [id number]: Total DLP = 1340.00 mGy-cm ADDENDUM This document has been electronically signed by: Amanda Casarez MD on 10/15/2024 06:06:25 ADDENDUM: This report was discussed with Cornelia Clark MD on Oct 15, 2024 06:09:00 EDT. This document has been electronically signed by: Yas Srivastava on 10/15/2024 06:09:58 Addendum Dictated By: Amanda Casarez MD Addendum Signed By: <Electronically signed by Amanda Casarez MD in OV> 10/15/24 0610 Addendum Cosigned By: DD/ /09/605 TD/TT: 10/15/2404/09/608 CLINICAL HISTORY: severe headache, HTN CT Head without contrast. CT angiography head and neck with contrast. 3D Postprocessing. Comparison: None provided Findings: HEAD CT: No intra-axial mass, midline shift, hydrocephalus, or acute hemorrhage. Close to complete opacification of the left mastoid air cells due to secretions or inflammatory/infectious in nature. Correlate clinically. Clear middle ear cavities. Small right maxillary sinus polyp/retention cyst. The orbits are unremarkable. There is no acute fracture. HEAD AND NECK CTA: Dominant left vertebral artery. Atherosclerotic plaques associated with relatively 50% stenosis of the proximal aspect of the left V4. 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 Irregularity of the proximal aspect of the ECA due to age-indeterminate dissection or atherosclerosis. Less than 50% stenosis of the cervical ICA. Severe string like narrowing (partially associated with calcified atherosclerotic plaques) of the petrous ICA. Diffuse atherosclerotic plaques of the cavernous ICA. Irregularity of portions of the right ophthalmic artery. Left: Severe stenosis (up to 85%) of the distal most aspect of the CCA (in the vicinity of the bulb and the ICA bulb) with associated hard plaques. Diffuse atherosclerotic calcifications at level of the cavernous ICA. Otherwise no evidence of significant arterial stenosis, aneurysm, AVM or dissection. No evidence of abnormal intracranial enhancement. Patent dural venous sinuses. No acute fracture. IMPRESSION: 1. No acute intracranial finding. 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 Irregularity of the proximal aspect of the ECA due to age-indeterminate dissection or atherosclerosis. Less than 50% stenosis of the cervical ICA. Severe string like narrowing (partially associated with calcified atherosclerotic plaques) of the petrous ICA. Diffuse atherosclerotic plaques of the cavernous ICA. Irregularity of portions of the right ophthalmic artery. 3. Left: Severe stenosis (up to 85%) of the distal most aspect of the CCA (in the vicinity of the bulb and the ICA bulb) with associated hard plaques. Diffuse atherosclerotic calcifications at level of the cavernous ICA. 4. Close to complete opacification of the left mastoid air cells due to secretions or inflammatory/infectious in nature. Correlate clinically. Clear middle ear cavities. * if clinically indicated further evaluation with brain MRI +/-MRA neck would be of value. This document has been electronically signed by: Amanda Casarez MD on 10/15/2024 06:06:25 Dictated By: Amanda Casarez MD Signed By: <Electronically signed by Amanda Casarez MD in OV> 10/15/24 0607 DD/ 06 TD/TT: 10/15/24 06 Financial Services Professional: Procedure Note Donotuseinterpreter, Image - 10/15/[address] [address] [address] Scan Report Signed with Rosendo Patient: Rocío HallmanMR#: [id number] : 2Acct:[id number] Age/Sex: 63 / FADM Date: 10/15/24 Loc: HO.ED Attending Dr: Ordering Physician: Cornelia Clark DO Date of Service: 10/15/24 Procedure(s): CT angio head neck Accession Number(s): [id number] cc: Cornelia Clark DO; [facility] Report Number: [id number]: Total DLP = 1340.00 mGy-cm ADDENDUM This document has been electronically signed by: Amanda Casarez MD on 10/15/2024 06:06:25 ADDENDUM: This report was discussed with Cornelia Clark MD on Oct 15, 2024 06:09:00 EDT. This document has been electronically signed by: Yas Srivastava on 10/15/2024 06:09:58 Addendum Dictated By: Amanda Casarez MD Addendum Signed By: <Electronically signed by Amanda Casarez MDin OV> 10/15/2410 Addendum Cosigned By: DD/ /09/605 TD/TT: 10/15/2404/09/608 CLINICAL HISTORY: severe headache, HTN CT Head without contrast. CT angiography head and neck with contrast. 3D Postprocessing. Comparison: None provided Findings: HEAD CT: No intra-axial mass, midline shift, hydrocephalus, or acute hemorrhage. Close to complete opacification of the left mastoid air cells due to secretions or inflammatory/infectious in nature. Correlate clinically. Clear middle ear cavities. Small right maxillary sinus polyp/retention cyst. The orbits are unremarkable. There is no acute fracture. HEAD AND NECK CTA: Dominant left vertebral artery. Atherosclerotic plaques associated with relatively 50% stenosis of the proximal aspect of the left V4. 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 Irregularity of the proximal aspect of the ECA due to age-indeterminate dissection or atherosclerosis. Less than 50% stenosis of the cervical ICA. Severe string like narrowing (partially associated with calcified atherosclerotic plaques) of the petrous ICA. Diffuse atherosclerotic plaques of the cavernous ICA. Irregularity of portions of the right ophthalmic artery. Left: Severe stenosis (up to 85%) of the distal most aspect of the CCA (in the vicinity of the bulb and the ICA bulb) with associated hard plaques. Diffuse atherosclerotic calcifications at level of the cavernous ICA. Otherwise no evidence of significant arterial stenosis, aneurysm, AVM or dissection. No evidence of abnormal intracranial enhancement. Patent dural venous sinuses. No acute fracture. IMPRESSION: 1. No acute intracranial finding. 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 Irregularity of the proximal aspect of the ECA due to age-indeterminate dissection or atherosclerosis. Less than 50% stenosis of the cervical ICA. Severe string like narrowing (partially associated with calcified atherosclerotic plaques) of the petrous ICA. Diffuse atherosclerotic plaques of the cavernous ICA. Irregularity of portions of the right ophthalmic artery. 3. Left: Severe stenosis (up to 85%) of the distal most aspect of the CCA (in the vicinity of the bulb and the ICA bulb) with associated hard plaques. Diffuse atherosclerotic calcifications at level of the cavernous ICA. 4. Close to complete opacification of the left mastoid air cells due to secretions or inflammatory/infectious in nature. Correlate clinically. Clear middle ear cavities. * if clinically indicated further evaluation with brain MRI +/-MRA neck would be of value. This document has been electronically signed by: Amanda Casarez MD on 10/15/2024 06:06:25 Dictated By: Amanda Casarez MD Signed By: <Electronically signed by Amanda Casarez MD in OV> 10/15/24 06 DD/ 5 TD/TT: 10/15/24605 Financial Services Professional: [facility] External Provider IMG CT PROCEDURES Edited Result - Final * XR Chest 1 View (10/15/2024 4:29 AM EDT) Anatomical Region Laterality Modality Chest Radiographic Samantha ging 10/15/2024 4:29 AM EDT Narrative 10/15/2024 4:30 AM EDT [address] [address] XRay Report Signed Patient: Rocío Hallman MR#: [id number] 087 : 1960 Acct:[id number] Age/Sex: 63 / F ADM Date: 10/15/24 Loc: HO.ED Attending Dr: Ordering Physician: Cornelia Clark DO Date of Service: 10/15/24 Procedure(s): XR chest 1V Accession Number(s): [id number] cc: Cornelia Clark DO; [facility] CLINICAL HISTORY: chest pain 1 view chest x-ray. Comparison: CR - XR CHEST 1V - 08/27/24 00:11 EDT Findings: No consolidation, pneumothorax, or effusion. Heart size normal. Impression: 1. No radiographic evidence for an acute cardiopulmonary process. No focal pulmonary consolidation. This document has been electronically signed by: Stan Corona MD on 10/15/2024 04:29:02 Dictated By: Stan Corona MD Signed By: <Electronically signed by Stan Corona MD in OV> 10/15/24429 DD/ 8 TD/TT: 10/15/24428 Financial Services Professional: Procedure Note Donotuseinterpreter, Image - 10/15/2024 [place] [address] XRay Report Signed Patient: Rocío HallmanMR#: [id number] [id number] : 1960cct:[id number] Age/Sex: 63 / FADM Date: 10/15/24 Loc: HO.ED Attending Dr: Ordering Physician: Cornelia Clark DO Date of Service: 10/15/24 Procedure(s): XR chest 1V Accession Number(s): [id number] cc: Cornelia Clark DO; [facility] CLINICAL HISTORY: chest pain 1 view chest x-ray. Comparison: CR - XR CHEST 1V - 08/27/24 00:11 EDT Findings: No consolidation, pneumothorax, or effusion. Heart size normal. Impression: 1. No radiographic evidence for an acute cardiopulmonary process. No focal pulmonary consolidation. This document has been electronically signed by: Stan Corona MD on 10/15/2024 04:29:02 Dictated By: Stan Corona MD Signed By: <Electronically signed by Stan Corona MD in OV> 10/15/24 043 DD/ 8 TD/TT: 10/15/24428 Financial Services Professional: us [facility] External Provider IMG XR PROCEDURES Edited Result - Final * High Sensitivity Troponin I (10/15/2024 2:37 AM EDT) [facility] TROPONIN I HIGH SENSITIVITY 7.6 <3.5 - 17.0 ng/L [facility] Comment:The Ibrahim high sens itivity Troponin-I results should beused in conjunction with other diagnostic information suchas ECG, clinical observations and information, and patientsymptoms to aid in the diagnosis of PA. 10/15/2024 2:37 AM EDT 10/15/2024 2:41 AM EDT Generic External Data Provider LAB BLOOD ORDERAB LES Final Result Performing Organization Address [facility] Co de Phone Number [facility] [address] [place] [phone] * Magnesium (10/15/2024 2:37 AM EDT) [facility] Magnesium 2.0 1.6 - 2.6 mg/dL [facility] 10/15/2024 2:37 AM EDT 10/15/2024 2:41 AM EDT Generic External Data Provider LAB BLOOD ORDERAB LES Final Result Performing Organization Address [facility] Co de Phone Number [facility] [address] [place] [address] [phone] * (ABNORMAL) Comprehensive Metabolic Panel (10/15/2024 2:37 AM EDT) [facility] Sodium 140 135 - 145 mmol/L [facility] Potassium 3.9 3.3 - 5.1 mmol/L [facility] Chloride 107 96 - 108 mmol/L [facility] Carbon Dioxide 25 22 - 29 mmol/L [facility] Anion Gap 12 12 - 20 [facility] Urea Nitrogen (BUN) 23(H) 9 - 16 mg/dL [facility] Creatinine, Serum 1.09 0.5 - 1.4 mg/dL [facility] Creatinine Clr Calc Pharmacy 43.7 [facility] Comment:Provided height and weight: 152.4 cm,61.235 kg.eGFR (calculated from the MDRD study equation) and eCrCl(calculated from the Cockcroft-Gault equation) are based ondifferent parameters and may not yield comparable results.If eCrCl result is absurd, please check patient'sheight/weight. Estimated Glomerular Filt Rate 51 [facility] Comment:Chronic Kidney Disea se: Estimated GFR < 60 mL/min/1.32s6Dgyizt Kidney Disease: Estimated GFR < 15 mL/min/1.73m2 Glucose 399(HH) 60 - 115 mg/dL [facility] Comment:Critical value for t est(s): GLUCR Results called to selvin back by: CAMELIA Person calling: VYASRID Date: [id number] Calcium 8.2(L) 8.4 - 10.2 mg/dL [facility] Bilirubin, Total 0.2 0.0 - 1.0 mg/dL [facility] Aspartate Amino Transferase 14 5 - 31 U/L [facility] Alanine Aminotransferase 7 0 - 31 U/L [facility] Total Protein 5.5(L) 6.5 - 8.0 g/dL [facility] Albumin Level 2.7(L) 3.5 - 5.0 g/dL [facility] Alkaline Phosphatase 97 39 - 117 U/L [facility] 10/15/2024 2:37 AM EDT 10/15/2024 2:41 AM EDT us Generic External Data Provider LAB BLOOD ORDERAB LES Final Result [facility] [address] [place] [phone] * (ABNORMAL) POCT Glucose (10/03/2024 9:39 AM EDT) Glucose Blood, POC 258(A) 60 - 200 mg/dL QC Media Lot # [id number] Lot# Expiration Date [id number] Blood Capillary blood specimen / Unknown 10/03/2024 9:39 AM EDT us Vickie Syed MD POINT OF CARE TEST EN TER/EDIT ORDERABLES Final Result * (ABNORMAL) Basic Metabolic Panel (09/24/2024 11:19 AM EDT) Only the most recent of3 resultswithin the time period is included. Sodium 139 135 - 145 mmol/L [facility] Potassium 3.9 3.3 - 5.1 mmol/L [facility] Chloride 105 96 - 108 mmol/L [facility] Carbon Dioxide 28 22 - 29 mmol/L [facility] Anion Gap 10(L) 12 - 20 [facility] Urea Nitrogen (BUN) 11 9 - 16 mg/dL [facility] Creatinine, Serum 1.02 0.5 - 1.4 mg/dL [facility] Estimated Glomerular Filt Rate 55 [facility] Comment:Chronic Kidney Disea se: Estimated GFR < 60 mL/min/1.16t0Qquwke Kidney Disease: Estimated GFR < 15 mL/min/1.73m2 Glucose 337(H) 60 - 115 mg/dL [facility] Calcium 8.1(L) 8.4 - 10.2 mg/dL [facility] 09/24/2024 11:1 9 AM EDT 09/24/2024 1:21 PM EDT us Generic External Data Provider LAB BLOOD ORDERAB LES Final Result [facility] [address] [place] [address] [phone] * (ABNORMAL) POCT HGB A1C (09/03/2024 4:57 PM EDT) Hemoglobin A1C 10.1(A) 4.0 - 5.7 % Blood 09/03/2024 4:57 PM EDT Radha Jamison DO POINT OF CARE TEST ENTER/BHARGAVI T ORDERABLES Final Result * B Type Natriuretic Peptide (BNP) (08/08/2024 12:01 PM EDT) B Type Natriuretic Peptide 96 <100 pg/mL [facility] Blood Venous blood specimen / Unknown 08/08/2024 12:01 PM EDT 08/08/2024 12:59 PM EDT Crystal Merino MD LAB BLOOD ORDERABLES Final Res ult Performing Organization Address City/State/[facility] Co de Phone Number [facility] [address] [place] [address] [phone] * XR Hip 2 or 3 Views Left (08/08/2024 11:32 AM EDT) Anatomical Region Laterality Modality Lower Extremities, Hip Left Radiograp hic Imaging 08/08/2024 11:3 2 AM EDT Narrative 08/08/2024 12:55 PM EDT [address] [address] XRay Report Signed Patient: Rocío Hallman MR#: [id number] : 1960 Acct:[id number] Age/Sex: 63 / F ADM Date: 08/08/24 Loc: [facility] Attending Dr: Radha Jamison DO Ordering Physician: Crystal Merino Date of Service: 08/08/24 Procedure(s): XR hip LT min 2V Accession Number(s): [id number] cc: Crystal Merino; Radha Jamison DO EXAMINATION: [...] 08/08/24 1252 DD/ 1132 TD/TT: 08/08/24 1220 Financial Services Professional: Procedure Note Donotuseinterpreter, Image - 08/08/[address] [address] XRay Report Signed Patient: Rocío HallmanMR#: [id number] : 2Acct:[id number] Age/Sex: 63 / FADM Date: 08/08/24 [facility]: Radha Jamison DO Ordering Physician: Crystal Merino Date of Service: 08/08/24 Procedure(s): XR hip LT min 2V Accession Number(s): [id number] cc: Crystal Merino; Radha Jamison DO EXAMINATION: [...] 08/08/24 1252 DD/ 1132 TD/TT: 08/08/24 1220 Financial Services Professional: us Crystal Merino MD IMG XR PROCEDURES Final Result * (ABNORMAL) Hepatic Function Panel (07/24/2024 10:41 AM EDT) Bilirubin, Total 0.2 0.0 - 1.0 mg/dL [facility] Bilirubin, Direct <0.2 0.0 - 0.5 mg/dL [facility] Aspartate Amino Transferase 13 5 - 31 U/L [facility] Alanine Aminotransferase <6 0 - 31 U/L [facility] Total Protein 5.7(L) 6.5 - 8.0 g/dL [facility] Albumin Level 3.1(L) 3.5 - 5.0 g/dL [facility] Alkaline Phosphatase 87 39 - 117 U/L [facility] 07/24/2024 10:4 1 AM EDT 07/24/2024 10:41 AM EDT us Radha Jamison DO LAB BLOOD ORDERABLES Final R esult [facility] [address] [place] [phone] * (ABNORMAL) Lipid Panel, Standard (07/24/2024 10:41 AM EDT) Triglycerides 157(H) <150 mg/dL [facility] Comment:Desirable Triglyceri de: less than 150 mg/dLBorderline High Triglyceride 150-199 mg/dLHigh Triglyceride: 200-499 mg/dLVery High Triglyceride: greater than or equal to 5OO mg/dL Cholesterol 234(H) <200 mg/dL [facility] Comment:Desirable Cholestero l: less than 200 mg/dLBorderline High Cholesterol: 200-239 mg/dLHigh Cholesterol: greater than 239 mg/dL LDL Cholesterol Calculated 159(H) <100 mg/dL [facility] Comment:Desirable LDL: less than 100 mg/dLNear Optimal/Above Optimal LDL: 110- 129 mg/dLBorderline High LDL: 130-159 mg/dLHigh LDL: 160-189 mg/dLVery High LDL: greater than or equal to 190 mg/dL HDL Cholesterol 44 >40 mg/dL [facility] Comment:Desirable HDL: great er than 40 mg/dL Note: This HDL assay may give artificially low results in patients with liver disease. 07/24/2024 10:4 1 AM EDT 07/24/2024 10:41 AM EDT [facility] LAB BLOOD ORDERABLES Final R esult Performing Organization Address City/[facility] Co de Phone Number [facility] [address] [place] [address] [phone] * (ABNORMAL) Albumin, Random Urine W/Creatinine (05/15/2023 8:20 AM EDT) Creatinine, Urine 105.69 mg/dL [facility] Microalbumin Urine 1,418.0 mg/L [facility] Microalbum Creatinine Ratio Ur 1,341.6(H ) <30 ug/mg cr [facility] Comment:Albumin/Creatinine R atio Reference Ranges: Normal: < 30 ug/mg creatinine Microalbuminuria: 30 - 300 ug/mg creatinineClinical Albuminuria: > 300 ug/mg creatinine Urine (Urine, Random) 05/15/2023 8:20 AM EDT 05/15/2023 8:31 AM EDT Radha Shaheen LAB URINE ORDERABLES Final R esult Performing Organization Address [facility]/ZIP Co de Phone Number [facility] [address] [place] [phone] * Hepatitis C Antibody with Reflex to HCV RNA,PCR w/Reflex to Genotype, LiPA (08/08/2022 10:44 AM EDT) Hepatitis C Antibody NON-REACT ROMERO NON-REACT ROMERO [facility] Comment: HCV antibody was non-reactive. There is no laboratory evidence of HCV infection. In most cases, no further action is required. However, if recent HCV exposure is suspected, a test for HCV RNA (test code 88323) is suggested. For additional information, please refer to http://[employer]/faq/UOS466 (This link is being provided for informational/ educational purposes only.) 08/08/2022 10:4 4 AM EDT 08/08/2022 10:45 AM EDT Narrative [facility] - 08/09/2022 7:27 PM EDT FASTING:YES COLLECTION KIT GIVEN TO PATIENT. PATIENT ADVISED TO RETURN. FASTING: YES us Radha Jamison DO LAB BLOOD ORDERABLES Final R esult [facility] [address], [place] [address] [facility] [address] [place] [address] * HIV-1/2 Antigen and Antibodies, Fourth Generation, with Reflexes (08/08/2022 10:44 AM EDT) HIV Antigen/Antibody, 4th Generation NON-REAC TIVE NON-REAC TIVE [facility] [place] [facility] Comment: HIV-1 antigen and HIV-1/HIV-2 antibodies [...] purpose. For additional information please refer to http://[employer]/faq/WXL562 (This link is being provided for informational/ [...] BLOOD ORDERABLES Final R esult [facility] [address] [facility], [facility], [place] [address] [facility] [address] [place] [address] * Mammography Report 1 (10/06/2021 1:35 PM [...] Phone Billing Address Personal/Family Self [address] [place] [address] [facility] * Guarantor: Rocío Hallman Account Type Relation to Patient Date of Phone Billing Address Dental Self [address] [place] [address] Care Teams Equine Manager Relationship Specialty Start Date End Date Radha Jamison DO [address] [place] [address] PCP - General Family Medicine 01/26/12 Nelia Sullivan PharmD [address] [place] [address] Pharmacist Internal Medicine 08/31/23 Laurel Monterroso Husbandry TechnicianForeign Student Adviser 10/27/22 Saige Aguilar 09/26/23
--- OUTSIDE RECORDS SUMMARY | 2024-10-22 11:30 | XMS_ITS | Encounter Summary ---
Author Organization [employer] Address [address] [facility] 7t [place] [address] Care Team Providers Care Airplane Patrol Pilot Name Role Phone Radha Jamison DO Primary Care Provider [phone] Abdias Murillo PharmD Unavailable Unavail able Nelia Sullivan PharmD Unavailable [phone] Reason for Visit * Reason Comments Med Refill Encounter Details Date Type Department Care Team (Late st Contact Info) Description 04/14/2023 Refill [facility] MEDICINE [address] [place], [place] [phone] Radha Jamison DO [address] [place], [place] [phone] Type 2 diabetes mellitus with hyperglycemia, with long-term current use of insulin ([facility]) Social History Tobacco Use Types Packs/Day [...] Description 11/05/2024 10:00 AM EDT Office Visit [facility] OPTOMETRY [address] [place] [address] 11/05/2024 11:00 AM EDT Medication Management [facility] MEDICINE [address] [place] [address] Nelia Sullivan PharmD [address] [place] [address] 11/11/2024 1:00 PM EDT Office Visit [facility] MEDICINE [address] [place] [address] Vickie Penaloza MD [address] [place] [address] documented as of this encounter Goals Goal Patient Goal Type Associated Problems Recent Progress Patient-Stated? Author Hemoglobin A1c < 7 Result Component 10.1( 4:57 PM EDT) No Abdias Murillo, PharmD documented as of this encounter Visit Diagnoses Diagnosis Type 2 diabetes mellitus with hyperglycemia, with long-term current use of insulin ([facility]) documented in this encounter Additional Health Concerns Assessment Noted Time PHQ-9 Depression Total Score: 4 11/09/19 23 11:27 AM EDT documented as of this encounter Care Teams Airplane Patrol Pilot Relationship Specialty Start Date End Date Radha Jamison DO [address] [place] [address] PCP - General Family Medicine 01/26/12 Abdias Murilol PharmD [address] [place] [address] Pharmacist Internal Medicine 03/21/22 08/30/23 Nelia Sullivan PharmD [address] [place] [address] Pharmacist Internal Medicine 08/31/23 Laurel Monterroso Car Park AttendantProcurement Technician 10/27/22 Saige Aguilar 09/26/23 documented as of this encounter
--- OUTSIDE RECORDS SUMMARY | 2024-10-22 11:30 | XMS_ITS | Encounter Summary ---
Author Organization [employer] Address [address] [facility] 7t [place] [address] Care Team Providers Care Extruding Machine Operator Name Role Phone Radha Jamison DO Primary Care Provider [phone] Abdias Murillo PharmD Unavailable Unavail able Nelia Sullivan PharmD Unavailable [phone] Reason for Visit * Reason Comments Med Refill Encounter Details Date Type Department Care Team (Late st Contact Info) Description 08/01/2023 Refill [facility] MEDICINE [address] [place] [address] Radha Jamison DO [address] [place] [address] Chronic bilateral low back pain, unspecified whether [...] Description 11/05/2024 10:00 AM EDT Office Visit [facility] OPTOMETRY [address] [place] [address] 11/05/2024 11:00 AM EDT Medication Management [facility] MEDICINE [address] [place] [address] Nelia Sullivan PharmD [address] [place] [address] 11/11/2024 1:00 PM EDT Office Visit [facility] MEDICINE [address] [place] [address] Vickie Penaloza MD [address] [place] [address] documented as of this encounter Goals Goal [...] documented as of this encounter Care Teams Extruding Machine Operator Relationship Specialty Start Date End Date Radha Jamison DO [address] [place] [address] PCP - General Family Medicine 01/26/12 Abdias Murillo, KeithD [address] [place] [address] Pharmacist Internal Medicine 03/21/22 08/30/23 Nelia Sullivan PharmD [address] [place] [address] Pharmacist Internal Medicine 08/31/23 Laurel Monterroso Certified Flight InstructorCommercial Escrow Assistant 10/27/22 Saige Aguilar 09/26/23 documented as of this encounter
--- OUTSIDE RECORDS SUMMARY | 2024-10-22 11:30 | XMS_ITS | Encounter Summary ---
Author Organization [employer] Address [address] [facility] 7t [place] [address] Care Team Providers Care Director Occupational Name Role Phone Radha Jamison DO Primary Care Provider [phone]- [phone] Nelia Sullivan PharmD Unavailable [phone] Reason for Visit * Reason Onset Date Comments Med Refill 05/07/2024 Encounter Details Date Type Department Care Team (Late st Contact Info) Description 05/07/2024 Telephone [facility] MEDICINE [address] [place] [address] Radha Jamison DO [address] [place], [place] [phone] Med Refill Social History Tobacco Use Types [...] the past 12 months, has t he Travelatus, gas, oil or water [employer] threatened to shut off services in your [...] immediate release tablet To be sent to: [facility] documented in this encounter Plan of Treatment Upcoming Encounters Date Type Department Care Team (Late st Contact Info) Description 11/05/2024 10:00 AM EDT Office Visit [facility] OPTOMETRY [address] [place], [place] [phone] 11/05/2024 11:00 AM EDT Medication Management [facility] MEDICINE [address] [place] [address] Nelia Sullivan, PharmD [address] [place] [address] 11/11/2024 1:00 PM EDT Office Visit [facility] MED[facility] [address] [place] [address] Vickie Penaloza MD [address] [place] [address] documented as of this encounter Goals Goal [...] Result Component 10.1(09/04/19 4:57 PM EDT) No DellogonoRodis, PharmD Record your [...] as of this encounter Care Teams Director Occupational Relationship Specialty Start Date End Date Radha Jamison DO [address] [place] [address] PCP - General Family Medicine 01/26/12 Puia, Nelia, PharmD [address] [place] [address] Pharmacist Internal Medicine 08/31/23 Laurel Monterroso Front End DeveloperRn Utilization Management Um 10/27/22 Saige Aguilar 09/26/23 documented as of this encounter
--- OUTSIDE RECORDS SUMMARY | 2024-10-22 11:30 | XMS_ITS | Encounter Summary ---
Author Organization [employer] Address [address] [facility] 7t [place] [address] Care Team Providers Care Auxiliary Engineer Name Role Phone ShaheenRadha Primary Care Provider [phone]- [phone] Abdias Murillo PharmD Unavailable Unavail able Nelia Sullivan PharmD Unavailable [phone] Reason for Visit * Reason Onset Date Comments Dental Exam 08/24/2023 Encounter Details Date Type Department Care Team (Late st Contact Info) Description 08/24/2023 Telephone [facility] ADULT DENTAL [address] [place] [address] AlanisLibby Barton, DDS [address] [place] [address] Dental Exam Social History Tobacco Use Types [...] Visit [facility] OPTOMETRY [address] [place] [address] 11/05/2024 11:00 AM EDT Medication Management [facility] MEDICINE [address] [place] [address] Nelia Sullivan, PharmD [address] [place] [address] 11/11/2024 1:00 PM EDT Office Visit [facility] MEDICINE [address] [place] [address] Vickie Penaloza MD 230 [place] [address] documented as of this encounter Goals Goal [...] documented as of this encounter Care Teams Auxiliary Engineer Relationship Specialty Start Date End Date Radha Jamison DO [address] [facility] [place] [address] PCP - General Family Medicine 01/26/12 Abdias Murillo, PharmD [address] [place] [address] Pharmacist Internal Medicine 03/21/22 08/30/23 Nelia Sullivan, KeithD 230 [facility] [place] [address] Pharmacist Internal Medicine 08/31/23 Laurel Monterroso Environmental Health Safety EngineerLog Sorting Supervisor 10/27/22 Saige Aguilar 09/26/23 documented as of this encounter
--- OUTSIDE RECORDS SUMMARY | 2024-10-22 11:31 | XMS_ITS | Encounter Summary ---
Author Organization [employer] Address [address] [facility] 7t [place] [address] Care Team Providers Care Spud Sorter Name Role Phone Radha Jamison DO Primary Care Provider DelAbdias hardy PharmD Unavailable Unavail able Nelia Sullivan PharmD Unavailable [phone] Reason for Visit * Reason Comments Med Refill Encounter Details Date Type Department Care Team (Late st Contact Info) Description 01/24/2022 Telephone [facility] CH[facility] MED & PEDS [address] [place], [place] [phone] Radha Jamison DO [address] [place] [address] Med Refill Social History Tobacco Use Types [...] Description 11/05/2024 10:00 AM EDT Office Visit [facility] OPTOMETRY [address] [place] [address] 11/05/2024 11:00 AM EDT Medication Management [facility] MEDICINE [address] [place] [address] Nelia Sullivan PharmD [address] [place] [address] 11/11/2024 1:00 PM EDT Office Visit [facility] MEDICINE 230 [place] [address] Vickie Penaloza MD [address] [place] [address] documented as of this encounter Visit Diagnoses Diagnosis Chronic bilateral low back pain, unspecified whether sciatica present documented in this encounter Care Teams Spud Sorter Relationship Specialty Start Date End Date Radha Jamison DO [address] [place] [address] PCP - General Family Medicine 01/26/12 Abdias Murillo PharmD [address] [place] [address] Pharmacist Internal Medicine 03/21/22 08/30/23 Nelia Sullivan PharmD [address] [place] [address] Pharmacist Internal Medicine 08/31/23 Laurel Monterroso Linseed Oil RefinerOperating Room Aide 10/27/22 Saige Aguilar 09/26/23 documented as of this encounter
--- OUTSIDE RECORDS SUMMARY | 2024-10-22 11:31 | XMS_ITS | Encounter Summary ---
Author Organization [employer] Address [address] [facility] 7t [place] [address] Care Team Providers Care Hunter Trapper Name Role Phone Radha Jamison DO Primary Care Provider [phone]- [phone] Abdias Murillo PharmD Unavailable Unavail able Nelia Sullivan PharmD Unavailable [phone] Reason for Visit * Reason Comments Med Refill Encounter Details Date Type Department Care Team (Late st Contact Info) Description 12/21/2022 Refill [facility] MEDICINE [address] [place] [address] Radha Jamison DO [address] [place] [address] Chronic bilateral low back pain, unspecified whether [...] Description 11/05/2024 10:00 AM EDT Office Visit [facility] OPTOMETRY [address] [place] [address] 11/05/2024 11:00 AM EDT Medication Management [facility] MEDICINE [address] [place] [address] Nelia Sullivan PharmD [address] [place] [address] 11/11/2024 1:00 PM EDT Office Visit [facility] MEDICINE [address] [place] [address] Vickie Penaloza MD [address] [place] [address] documented as of this encounter Goals Goal [...] documented as of this encounter Care Teams Hunter Trapper Relationship Specialty Start Date End Date Radha Jamison DO [address] [place] [address] PCP - General Family Medicine 01/26/12 Abdias Murillo, KeithD [address] [facility] [address] Pharmacist Internal Medicine 03/21/22 08/30/23 Nelia Sullivan PharmD [address] [place] [address] Pharmacist Internal Medicine 08/31/23 Laurel Monterroso Toll Line RepairerSvp Research & Ebusiness Operations 10/27/22 Saige Aguilar 09/26/23 documented as of this encounter
--- OUTSIDE RECORDS SUMMARY | 2024-10-22 11:31 | XMS_ITS | Encounter Summary ---
Author Organization [employer] Address [address] [facility] [address]t [place] [address] Care Team Providers Care Independent Marketing Consultant Name Role Phone Radha Jamison DO Primary Care Provider [phone] Abdias Murillo PharmD Unavailable Unavail able Nelia Sullivan PharmD Unavailable [phone] Reason for Visit * Reason Comments Med Refill Encounter Details Date Type Department Care Team (Late st Contact Info) Description 06/10/2022 Refill [facility] MEDICINE [address] [place] [address] Radha Jamison DO [address] [place] [address] Chronic bilateral low back pain, unspecified whether [...] [facility] OPTOMETRY [address] [place], [place] [phone] 11/05/2024 11:00 AM EDT Medication Management [facility] MEDICINE [address] [place] [address] Nelia Sullivan, PharmD [address] [place] [address] 11/11/2024 1:00 PM EDT Office Visit [facility] MEDICINE [address] [place] [address] Vickie Penaloza MD [address] [place] [address] documented as of this encounter Goals Goal [...] documented as of this encounter Care Teams Independent Marketing Consultant Relationship Specialty Start Date End Date [place] [address] PCP - General Family Medicine 01/26/12 Abdias Murillo, PharmD [address] [place] [address] Pharmacist Internal Medicine 03/21/22 08/30/23 Nelia Sullivan PharmD [address] [place] [address] Pharmacist Internal Medicine 08/31/23 Laurel Monterroso Sales Merchandise AssociateAssociate Trainer 10/27/22 Saige Aguilar 09/26/23 documented as of this encounter
--- OUTSIDE RECORDS SUMMARY | 2024-10-22 11:31 | XMS_ITS | Encounter Summary ---
Author Organization [employer] Address [address] [facility] [address] [place] [address] Care Team Providers Care Machinist Mate Name Role Phone Radha Jamison DO Primary Care Provider [phone] Abdias Murillo PharmD Unavailable Unavail able Nelia Sullivan PharmD Unavailable [phone] Reason for Visit * Reason Onset Date Comments Appointment Request 03/09/2023 Encounter Details Date Type Department Care Team ([facility] st Contact Info) Description 03/09/2023 Telephone [facility] [address] [place] [address] Radha Jamison DO [address] [place] [address] Appointment Request Social History Tobacco Use Types [...] denied any concerns. Please contact pt at [phone] documented in this encounter Plan of Treatment Upcoming Encounters Date Type Department Care Team (Late st Contact Info) Description 11/05/2024 10:00 AM EDT Office Visit [facility] [address] [place], [place] [id number] 11/05/2024 11:00 AM EDT Medication Management [facility] [address] [place] [phone] Nelia Sullivan, PharmD [address] [place] [address] 11/11/2024 1:00 PM EDT Office Visit [facility] [address] [place] [address] Vickie Penaloza MD [address] [place] [address] documented as of this encounter Goals Goal Patient Goal Type Associated Problems Recent Progress Patient-Stated? Author Hemoglobin A1c < 7 Result Component 10.1( 4:57 PM EDT) Abdias Owens, PharmD documented as of this encounter Visit Diagnoses Not on filedocumented in this encounter Additional Health Concerns Assessment Noted Time PHQ-9 Depression Total Score: 4 11/09/19 23 11:27 AM EDT documented as of this encounter Care Teams Machinist Mate Relationship Specialty Start Date End Date Radha Jamison DO [address] [place] [address] PCP - General Family Medicine 01/26/12 Abdias Murillo, PharmD [address] [place] [address] Pharmacist Internal Medicine 03/21/22 08/30/23 Nelia Sullivan PharmD [address] [place] [address] Pharmacist Internal Medicine 08/31/23 Laurel Monterroso Chain Maker HandReal Estate Investment Analyst 10/27/22 Saige Aguilar 09/26/23 documented as of this encounter
--- OUTSIDE RECORDS SUMMARY | 2024-10-22 11:31 | XMS_ITS | Encounter Summary ---
Author Organization [employer] Address [address] [facility] [address] [place] [address] Care Team Providers Care Patient Resource Specialist Name Role Phone Radha Jamison DO Primary Care Provider Abdias Murillo PharmD Unavailable Unavail able Nelia Sullivan PharmD Unavailable [phone] Reason for Visit * Reason Comments Med Refill Encounter Details Date Type Department Care Team (Late Contact Info) Description 07/20/2022 Refill [facility] [address] [place] [address] Radha Jamison DO [address] [place] [address] Hypertension, unspecified type Social History Tobacco Use [...] Description 11/05/2024 10:00 AM EDT Office Visit [facility] OPT[facility] [address] [place], [place] [phone] 11/05/2024 11:00 AM EDT Medication Management [facility] [address] [place] [address] Nelia Sullivan, PharmD [address] [place] [address] 11/11/2024 1:00 PM EDT Office Visit [facility] [address] [place] [address] Vickie Penaloza MD [address] [place] [address] documented as of this encounter Goals Goal [...] documented as of this encounter Care Teams Patient Resource Specialist Relationship Specialty Start Date End Date Radha Jamison DO [address] [place] [phone] PCP - General Family Medicine 01/26/12 Abdias Murillo, PharmD [address] [place] [phone] Pharmacist Internal Medicine 03/21/22 08/30/23 Nelia Sullivan, PharmD [address] [place] [id number] Pharmacist Internal Medicine 08/31/23 Laurel Monterroso Electronic Gaming Device SupervisorPoultry Farmer Egg 10/27/22 Saige Aguilar 09/26/23 documented as of this encounter
--- OUTSIDE RECORDS SUMMARY | 2024-10-22 11:31 | XMS_ITS | Encounter Summary ---
Author Organization [employer] Address [address] [facility] [address] [place] [address] Care Team Providers Care Judicial Administrative Assistant Name Role Phone Radha Jamison DO Primary Care Provider [phone] Abdias Murillo PharmD Unavailable Unavail able Nelia Sullivan PharmD Unavailable [phone] Reason for Visit * Reason Comments Med Refill Encounter Details Date Type Department Care Team (Late st Contact Info) Description 12/20/2022 Refill [facility] [address] [place] [address] Radha Jamison DO [address] [place] [address] Chronic bilateral low back pain, unspecified whether [...] Description 11/05/2024 10:00 AM EDT Office Visit [facility] OPTOM[facility] [address] [place] [address] 11/05/2024 11:00 AM EDT Medication Management [facility] [address] [place] [address] Nelia Sullivan PharmD [address] [place] [id number] 11/11/2024 1:00 PM EDT Office Visit [facility] [address] [place] [address] Vickie Penaloza MD [address] [place] [address] documented as of this encounter Goals Goal [...] documented as of this encounter Care Teams Judicial Administrative Assistant Relationship Specialty Start Date End Date Radha Jamison DO [address] [place] [address] PCP - General Family Medicine 01/26/12 Abdias Murillo, KeithD [address] [place] [address] Pharmacist Internal Medicine 03/21/22 08/30/23 Nelia Sullivan PharmD [address] [place] [address] Pharmacist Internal Medicine 08/31/23 Laurel Monterroso School Age Lead TeacherCrew Team Member 10/27/22 Saige Aguilar 09/26/23 documented as of this encounter
--- OUTSIDE RECORDS SUMMARY | 2024-10-22 11:31 | XMS_ITS | Encounter Summary ---
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 Role Phone Radha Jamison DO Primary Care Provider Abdias Murillo PharmD Unavailable Unavail able Nelia Sullivan PharmD Unavailable Encounter Details Date Type Department Care Team (Late st Contact Info) Description 02/03/2022 Orders Only [facility] MEDICINE [address] [place] [address] Radha Jamison DO [address] [place] [address] Social History Tobacco Use Types Packs/Day Years [...] 11/05/2024 10:00 AM EDT Office Visit [facility] OPTOMETRY [address] [place], [place] [phone] 11/05/2024 11:00 AM EDT Medication Management [facility] MEDICINE [address] [place], [place] [phone] Nelia Sullivan, PharmD [address] [place] [address] 11/11/2024 1:00 PM EDT Office Visit [facility] MEDICINE [address] [facility] [place] [address] Vickie Penaloza MD [address] [facility], [place] [id number] documented as of this encounter Procedures Procedure Name Priority Date/Time Associated Diagnosis Comments CBC WITH AUTO DIFFERENTIAL Routine 04/24/2022 4:19 PM EDT SED RATE BY MODIFIED WESTERGREN Routine 04/24/2022 4:19 PM EDT C-REACTIVE PROTEIN Routine 04/24/2022 4: 19 PM EDT MAGNESIUM Routine 04/24/2022 4:19 PM EDT HEPATIC FUNCTION PANEL Routine 3 4:19 PM EDT BASIC METABOLIC PANEL Routine [...] Sedimentation Rate 23(H) 0 - 20 MM/HR [facility] Comment:Patients with polycy themia and many hemoglobin abnormalitiesmay have depressed sed rates whereas patients with anemiamay have elevated sed rates. 04/24/2022 4:19 PM EDT 04/24/2022 4:27 PM EDT [facility] External Provider LAB BLO OD ORDERABLES Final Result Performing Organization Address [facility] Co de Phone Number [facility] [address] [place] [phone] * C-reactive Protein (04/24/2022 4:19 PM EDT) Pathologist [facility] C Reactive Protein 0.28 < or = 0.50 mg/dL [facility] 04/24/2022 4:19 PM EDT 04/24/2022 4:22 PM EDT [facility] External Provider LAB BLO OD ORDERABLES Final Result Performing Organization Address [facility] Phone Number [facility] [address] [place] [phone] * Magnesium (04/24/2022 4:19 PM EDT) Pathologist [facility] Magnesium 1.7 1.6 - 2.6 mg/dL [facility] 04/24/2022 4:19 PM EDT 04/24/2022 4:22 PM EDT [facility] External Provider LAB BLO OD ORDERABLES Final Result Performing Organization Address [facility] de Phone Number [facility] [address] [place] [phone] * (ABNORMAL) Basic Metabolic Panel (04/24/2022 4:19 PM EDT) Pathologist [facility] Sodium 135 135 - 145 mmol/L [facility] Potassium 4.7 3.3 - 5.1 mmol/L [facility] Chloride 100 96 - 108 mmol/L [facility] Carbon Dioxide 27 22 - 29 mmol/L [facility] Anion Gap 13 12 - 20 [facility] Urea Nitrogen (BUN) 20(H) 9 - 16 mg/dL [facility] Creatinine, Serum 1.01 0.5 - 1.4 mg/dL [facility] Creatinine Clr Calc Pharmacy 48.8 [facility] Comment:Provided height and weight: 152.4 cm,62.4 kg.eGFR (calculated from the MDRD study equation) and eCrCl(calculated from the Cockcroft-Gault equation) are based ondifferent parameters and may not yield comparable results.If eCrCl result is absurd, please check patient'sheight/weight. Estimated Glomerular Filt Rate 56 [facility] Comment:NOTE: For -Am erican individuals, multiply the result by 1.210.Chronic Kidney Disease: Estimated GFR < 60 mL/min/1.40w7Utrbye Kidney Disease: Estimated GFR < 15 mL/min/1.73m2 Glucose 269(H) 60 - 115 mg/dL [facility] Calcium 9.2 8.4 - 10.2 mg/dL [facility] 04/24/2022 4:19 PM EDT 04/24/2022 4:22 PM EDT us [facility] External Provider LAB BLO OD ORDERABLES Final Result [facility] [address] [place] [phone] * Hepatic Function Panel (04/24/2022 4:19 PM EDT) Bilirubin, Total 0.6 0.0 - 1.0 mg/dL [facility] Bilirubin, Direct <0.2 0.0 - 0.5 mg/dL [facility] Aspartate Amino Transferase 11 5 - 31 U/L [facility] Alanine Aminotransferase 6 0 - 31 U/L [facility] Total Protein 6.5 6.5 - 8.0 g/dL [facility] Albumin Level 4.0 3.5 - 5.0 g/dL [facility] Alkaline Phosphatase 80 39 - 117 U/L [facility] 04/24/2022 4:19 PM EDT 04/24/2022 4:22 PM EDT [facility] External Provider LAB BLO OD ORDERABLES Final Result [facility] [address] [place] [address] [phone] * (ABNORMAL) CBC auto differential (04/24/2022 4:19 PM EDT) White Blood Count 7.3 4.8 - 10.8 X10*3/uL [facility] Red Blood Count 4.14(L) 4.20 - 5.50 X10*6/uL [facility] Hemoglobin 12.1 12.0 - 16.0 g/dl [facility] Hematocrit 36.6(L) 37.0 - 47.0 % [facility] Mean Corpuscular Volume 88.4 80.0 - 98.0 fL [facility] Mean Corpuscular Hemoglobin 29.2 27.0 - 33.0 pg [facility] Mean Corpuscular HGB Conc 33.1 31.0 - 35.0 g/dl [facility] Red Cell Distribution Width 13.4 11.0 - 16.0 % [facility] Platelet Count 333 160 - 400 X10*3/uL [facility] Mean Platelet Volume 8.9(L) 9.4 - 12.3 fL [facility] Neutrophils Percent Auto 62.4 45 - 73 % [facility] Imm Gran Pct Auto 0.3 0.0 - 0.4 % [facility] Lymphocytes Percent Auto 28.8 20 - 40 % [facility] Monocytes Percent Auto 5.3 2 - 11 % [facility] Eosinophils Percent Auto 2.7 0 - 4 % [facility] Basophils Percent Auto 0.5 0 - 2 % [facility] NRBC Pct Auto 0.0 0.0 - 0.2 /100WBC [facility] Neutrophils Absolute Auto 4.6 2.0 - 8.3 x10*3/uL [facility] Imm Gran Abs Auto 0.02 0.00 - 0.03 X10*3/uL [facility] Lymphocytes Absolute Auto 2.1 1.2 - 4.9 X10*3/uL [facility] Monocytes Absolute Auto 0.4 0.1 - 1.2 X10*3/uL [facility] Eosinophils Absolute Auto 0.2 0.0 - 0.4 X10*3/uL [facility] Basophils Absolute Auto 0.0 0.0 - 0.2 X10*3/uL [facility] NRBC Abs Auto 0.000 0.0 - 0.012 X10*3/uL [facility] 04/24/2022 4:19 PM EDT 04/24/2022 4:22 PM EDT us [facility] External Provider LAB BLO OD ORDERABLES Final Result [facility] [address] [place] [phone] * (ABNORMAL) Urinalysis, Complete, with Reflex to Culture (04/17/2022 10:53 AM EST) Color Urine Yellow [facility] Appearance Urine Clear [facility] PH 7.5 5.0 - 9.0 [facility] Glucose Urine UA 100(A) Negative mg/dL [facility] Urine Blood Negative Negative [facility] Specific [place] - Urine >=1.030(H) 1.005 - 1.025 [facility] Urine Protein 100 (2+)(A) Neg-Trace mg/dL [facility] Urine Ketones Negative Negative mg/dL [facility] Nitrite Urine Negative Negative [facility] Leukocyte Esterase Urine Negative Negative [facility] RBC Urine 3-5(A) 0 - 2 /HPF [facility] Urine WBC 0-5 0 - 5 /HPF [facility] Urine Squamous Epithelial Cell 3-5 0 - 2 /HPF [facility] Urine Bacteria None Seen None Seen [facility] Hyaline Casts, Urine 0-2 0 - 2 /LPF [facility] 04/17/2022 10:5 3 AM EST 04/17/2022 10:56 AM EST Narrative [facility] - 04/17/2022 11:06 AM EST Urine, Clean Catch [facility] External Provider LAB URI NE ORDERABLES Final Result Performing Organization Address [facility] Co de Phone Number [facility] [address] [place] [address] [phone] * (ABNORMAL) Sed Rate by Modified Liloren (04/17/2022 8:21 AM EST) Erythrocyte Sedimentation Rate 23(H) 0 - 20 MM/HR [facility] Comment:Patients with polycy themia and many hemoglobin abnormalitiesmay have depressed sed rates whereas patients with anemiamay have elevated sed rates. 04/17/2022 8:21 AM EST 04/17/2022 8:41 AM EST [facility] External Provider LAB BLO OD ORDERABLES Final Result Performing Organization Address [facility] Co de Phone Number [facility] [address] [place] [address] [phone] * Lipase (04/17/2022 8:21 AM EST) Lipase 10 8 - 78 U/L [facility] 04/17/2022 8:21 AM EST 04/17/2022 8:24 AM EST [facility] External Provider LAB BLO OD ORDERABLES Final Result Performing Organization Address [facility] Co de Phone Number [facility] [address] [place] [phone] * C-reactive Protein (04/17/2022 8:21 AM EST) Pathologist [facility] C Reactive Protein 0.23 < or = 0.50 mg/dL [facility] 04/17/2022 8:21 AM EST 04/17/2022 8:24 AM EST [facility] External Provider LAB BLO OD ORDERABLES Final Result Performing Organization Address [facility] Phone Number [facility] [address] [place] [phone] * Magnesium (04/17/2022 8:21 AM EST) [facility] Magnesium 1.6 1.6 - 2.6 mg/dL [facility] 04/17/2022 8:21 AM EST 04/17/2022 8:24 AM EST [facility] External Provider LAB BLO OD ORDERABLES Final Result Performing Organization Address [facility] Phone Number [facility] [address] [place] [phone] * (ABNORMAL) Hepatic Function Panel (04/17/2022 8:21 AM EST) Pathologist [facility] Bilirubin, Total 0.7 0.0 - 1.0 mg/dL [facility] Bilirubin, Direct <0.2 0.0 - 0.5 mg/dL [facility] Aspartate Amino Transferase 10 5 - 31 U/L [facility] Alanine Aminotransferase 7 0 - 31 U/L [facility] Total Protein 6.2(L) 6.5 - 8.0 g/dL [facility] Albumin Level 3.8 3.5 - 5.0 g/dL [facility] Alkaline Phosphatase 71 39 - 117 U/L [facility] 04/17/2022 8:21 AM EST 04/17/2022 8:24 AM EST [facility] External Provider LAB BLO OD ORDERABLES Final Result Performing Organization Address [facility]/ZIP Co de Phone Number [facility] [address] [place] [phone] [phone] * (ABNORMAL) Basic Metabolic Panel (04/17/2022 8:21 AM EST) Sodium 138 135 - 145 mmol/L [facility] Potassium 4.9 3.3 - 5.1 mmol/L [facility] Chloride 104 96 - 108 mmol/L [facility] Carbon Dioxide 26 22 - 29 mmol/L [facility] Anion Gap 13 12 - 20 [facility] Urea Nitrogen (BUN) 17(H) 9 - 16 mg/dL [facility] Creatinine, Serum 0.79 0.5 - 1.4 mg/dL [facility] Creatinine Clr Calc Pharmacy 66.3 [facility] Comment:Provided height and weight: 157.48 cm,63.503 kg.eGFR (calculated from the MDRD study equation) and eCrCl(calculated from the Cockcroft-Gault equation) are based ondifferent parameters and may not yield comparable results.If eCrCl result is absurd, please check patient'sheight/weight. Estimated Glomerular Filt Rate >60 [facility] Comment:NOTE: For -Am erican individuals, multiply the result by 1.210.Chronic Kidney Disease: Estimated GFR < 60 mL/min/1.81h8Oiabzv Kidney Disease: Estimated GFR < 15 mL/min/1.73m2 Glucose 272(H) 60 - 115 mg/dL [facility] Calcium 9.1 8.4 - 10.2 mg/dL [facility] 04/17/2022 8:21 AM EST 04/17/2022 8:24 AM EST us [facility] External Provider LAB BLO OD ORDERABLES Final Result Performing Organization Address [facility]/ZIP Co de Phone Number [facility] [address] [place] [phone] [phone] * (ABNORMAL) CBC auto differential (04/17/2022 8:21 AM EST) White Blood Count 5.7 4.8 - 10.8 X10*3/uL [facility] Red Blood Count 4.01(L) 4.20 - 5.50 X10*6/uL [facility] Hemoglobin 11.7(L) 12.0 - 16.0 g/dl [facility] Hematocrit 35.9(L) 37.0 - 47.0 % [facility] Mean Corpuscular Volume 89.5 80.0 - 98.0 fL [facility] Mean Corpuscular Hemoglobin 29.2 27.0 - 33.0 pg [facility] Mean Corpuscular HGB Conc 32.6 31.0 - 35.0 g/dl [facility] Red Cell Distribution Width 13.4 11.0 - 16.0 % [facility] Platelet Count 309 160 - 400 X10*3/uL [facility] Mean Platelet Volume 9.3(L) 9.4 - 12.3 fL [facility] Neutrophils Percent Auto 60.9 45 - 73 % [facility] Imm Gran Pct Auto 0.4 0.0 - 0.4 % [facility] Lymphocytes Percent Auto 27.3 20 - 40 % [facility] Monocytes Percent Auto 6.3 2 - 11 % [facility] Eosinophils Percent Auto 4.4(H) 0 - 4 % [facility] Basophils Percent Auto 0.7 0 - 2 % [facility] NRBC Pct Auto 0.0 0.0 - 0.2 /100WBC [facility] Neutrophils Absolute Auto 3.5 2.0 - 8.3 x10*3/uL [facility] Imm Gran Abs Auto 0.02 0.00 - 0.03 X10*3/uL [facility] Lymphocytes Absolute Auto 1.6 1.2 - 4.9 X10*3/uL [facility] Monocytes Absolute Auto 0.4 0.1 - 1.2 X10*3/uL [facility] Eosinophils Absolute Auto 0.3 0.0 - 0.4 X10*3/uL [facility] Basophils Absolute Auto 0.0 0.0 - 0.2 X10*3/uL [facility] NRBC Abs Auto 0.000 0.0 - 0.012 X10*3/uL [facility] 04/17/2022 8:21 AM EST 04/17/2022 8:24 AM EST [facility] External Provider LAB BLO OD ORDERABLES Final Result Performing Organization Address [facility] Co de Phone Number [facility] [address] [place] [phone] * Creatinine, Serum (04/13/2022 7:33 AM EST) Creatinine, Serum 0.75 0.5 - 1.4 mg/dL [facility] Creatinine Clr Calc Pharmacy 70.3 [facility] Comment:Provided height and weight: 157.48 cm,64.41 kg.eGFR (calculated from the MDRD study equation) and eCrCl(calculated from the Cockcroft-Gault equation) are based ondifferent parameters and may not yield comparable results.If eCrCl result is absurd, please check patient'sheight/weight. Estimated Glomerular Filt Rate >60 [facility] Comment:NOTE: For -Am erican individuals, multiply the result by 1.210.Chronic Kidney Disease: Estimated GFR < 60 mL/min/1.38q2Qwvmnj Kidney Disease: Estimated GFR < 15 mL/min/1.73m2 04/13/2022 7:33 AM EST 04/13/2022 7:38 AM EST [facility] External Provider LAB BLO OD ORDERABLES Final Result Performing Organization Address [facility] Co de Phone Number [facility] [address] [place] [phone] * BUN (Blood Urea Nitrogen) (04/13/2022 7:33 AM EST) Urea Nitrogen (BUN) 12 9 - 16 mg/dL [facility] 04/13/2022 7:33 AM EST 04/13/2022 7:38 AM EST [facility] External Provider LAB BLO OD ORDERABLES Final Result [facility] [address] [place] [phone] * (ABNORMAL) CBC auto differential (04/13/2022 7:33 AM EST) White Blood Count 6.6 4.8 - 10.8 X10*3/uL [facility] Red Blood Count 4.12(L) 4.20 - 5.50 X10*6/uL [facility] Hemoglobin 12.1 12.0 - 16.0 g/dl [facility] Hematocrit 36.6(L) 37.0 - 47.0 % [facility] Mean Corpuscular Volume 88.8 80.0 - 98.0 fL [facility] Mean Corpuscular Hemoglobin 29.4 27.0 - 33.0 pg [facility] Mean Corpuscular HGB Conc 33.1 31.0 - 35.0 g/dl [facility] Red Cell Distribution Width 13.6 11.0 - 16.0 % [facility] Platelet Count 291 160 - 400 X10*3/uL [facility] Mean Platelet Volume 9.0(L) 9.4 - 12.3 fL [facility] Neutrophils Percent Auto 55.5 45 - 73 % [facility] Imm Gran Pct Auto 0.2 0.0 - 0.4 % [facility] Lymphocytes Percent Auto 33.7 20 - 40 % [facility] Monocytes Percent Auto 6.5 2 - 11 % [facility] Eosinophils Percent Auto 3.6 0 - 4 % [facility] Basophils Percent Auto 0.5 0 - 2 % [facility] NRBC Pct Auto 0.0 0.0 - 0.2 /100WBC [facility] Neutrophils Absolute Auto 3.7 2.0 - 8.3 x10*3/uL [facility] Imm Gran Abs Auto 0.01 0.00 - 0.03 X10*3/uL [facility] Lymphocytes Absolute Auto 2.2 1.2 - 4.9 X10*3/uL [facility] Monocytes Absolute Auto 0.4 0.1 - 1.2 X10*3/uL [facility] Eosinophils Absolute Auto 0.2 0.0 - 0.4 X10*3/uL [facility] Basophils Absolute Auto 0.0 0.0 - 0.2 X10*3/uL [facility] NRBC Abs Auto 0.000 0.0 - 0.012 X10*3/uL [facility] 04/13/2022 7:33 AM EST 04/13/2022 7:38 AM EST [facility] External Provider LAB BLO OD ORDERABLES Final Result Performing Organization Address City/[facility]/ZIP Co de Phone Number [facility] [address] [place] [phone] * (ABNORMAL) GLUCOSE, WHOLE BLOOD (04/13/2022 7:27 AM EST) [facility] Glucose, Whole Blood 197(H) 60 - 115 mg/dL [facility] Comment:METER #: [id number] 04/13/2022 7:27 AM EST 04/13/2022 7:31 AM EST [facility] External Provider LAB BLO OD ORDERABLES Final Result Performing Organization Address [facility] Co de Phone Number [facility] [address] [place] [address] [phone] * HIGH SENSITIVITY TROPONIN I (04/03/2022 8:36 PM EST) [facility] TROPONIN I HIGH SENSITIVITY 6.0 <3.5 - 17.0 ng/L [facility] Comment:The Ibrahim high sens itivity Troponin-I results should beused in conjunction with other diagnostic information suchas ECG, clinical observations and information, and patientsymptoms to aid in the diagnosis of OR. 04/03/2022 8:36 PM EST 04/03/2022 8:38 PM EST [facility] External Provider LAB BLO OD ORDERABLES Final Result Performing Organization Address [facility]/ZIP Co de Phone Number [facility] [address] [place] [address] [phone] * Lipase (04/03/2022 8:36 PM EST) Lipase 10 8 - 78 U/L [facility] 04/03/2022 8:36 PM EST 04/03/2022 8:38 PM EST [facility] External Provider LAB BLO OD ORDERABLES Final Result Performing Organization Address [facility] Co de Phone Number [facility] [address] [place] [address] [phone] * (ABNORMAL) Basic Metabolic Panel (04/03/2022 8:36 PM EST) Sodium 138 135 - 145 mmol/L [facility] Potassium 3.9 3.3 - 5.1 mmol/L [facility] Chloride 104 96 - 108 mmol/L [facility] Carbon Dioxide 27 22 - 29 mmol/L [facility] Anion Gap 11(L) 12 - 20 [facility] Urea Nitrogen (BUN) 11 9 - 16 mg/dL [facility] Creatinine, Serum 0.74 0.5 - 1.4 mg/dL [facility] Creatinine Clr Calc Pharmacy 70.7 [facility] Comment:Provided height and weight: 157.48 cm,63.503 kg.eGFR (calculated from the MDRD study equation) and eCrCl(calculated from the Cockcroft-Gault equation) are based ondifferent parameters and may not yield comparable results.If eCrCl result is absurd, please check patient'sheight/weight. Estimated Glomerular Filt Rate >60 [facility] Comment:NOTE: For -Am erican individuals, multiply the result by 1.210.Chronic Kidney Disease: Estimated GFR < 60 mL/min/1.88h4Oezmzw Kidney Disease: Estimated GFR < 15 mL/min/1.73m2 Glucose 246(H) 60 - 115 mg/dL [facility] Calcium 9.0 8.4 - 10.2 mg/dL [facility] 04/03/2022 8:36 PM EST 04/03/2022 8:38 PM EST [facility] External Provider LAB BLO OD ORDERABLES Final Result Performing Organization Address [facility] de Phone Number [facility] [address] [place] [phone] * (ABNORMAL) Hepatic Function Panel (04/03/2022 8:36 PM EST) Bilirubin, Total 0.6 0.0 - 1.0 mg/dL [facility] Bilirubin, Direct 0.2 0.0 - 0.5 mg/dL [facility] Aspartate Amino Transferase 10 5 - 31 U/L [facility] Alanine Aminotransferase 8 0 - 31 U/L [facility] Total Protein 5.8(L) 6.5 - 8.0 g/dL [facility] Albumin Level 3.7 3.5 - 5.0 g/dL [facility] Alkaline Phosphatase 76 39 - 117 U/L [facility] 04/03/2022 8:36 PM EST 04/03/2022 8:38 PM EST [facility] External Provider LAB BLO OD ORDERABLES Final Result Performing Organization Address [facility] Co de Phone Number [facility] [address] [place] [phone] * (ABNORMAL) CBC auto differential (04/03/2022 8:36 PM EST) White Blood Count 6.0 4.8 - 10.8 X10*3/uL [facility] Red Blood Count 4.10(L) 4.20 - 5.50 X10*6/uL [facility] Hemoglobin 12.0 12.0 - 16.0 g/dl [facility] Hematocrit 35.6(L) 37.0 - 47.0 % [facility] Mean Corpuscular Volume 86.8 80.0 - 98.0 fL [facility] Mean Corpuscular Hemoglobin 29.3 27.0 - 33.0 pg [facility] Mean Corpuscular HGB Conc 33.7 31.0 - 35.0 g/dl [facility] Red Cell Distribution Width 13.3 11.0 - 16.0 % [facility] Platelet Count 276 160 - 400 X10*3/uL [facility] Mean Platelet Volume 9.2(L) 9.4 - 12.3 fL [facility] Neutrophils Percent Auto 58.2 45 - 73 % [facility] Imm Gran Pct Auto 0.2 0.0 - 0.4 % [facility] Lymphocytes Percent Auto 32.9 20 - 40 % [facility] Monocytes Percent Auto 6.0 2 - 11 % [facility] Eosinophils Percent Auto 2.2 0 - 4 % [facility] Basophils Percent Auto 0.5 0 - 2 % [facility] NRBC Pct Auto 0.0 0.0 - 0.2 /100WBC [facility] Neutrophils Absolute Auto 3.5 2.0 - 8.3 x10*3/uL [facility] Imm Gran Abs Auto 0.01 0.00 - 0.03 X10*3/uL [facility] Lymphocytes Absolute Auto 2.0 1.2 - 4.9 X10*3/uL [facility] Monocytes Absolute Auto 0.4 0.1 - 1.2 X10*3/uL [facility] Eosinophils Absolute Auto 0.1 0.0 - 0.4 X10*3/uL [facility] Basophils Absolute Auto 0.0 0.0 - 0.2 X10*3/uL [facility] NRBC Abs Auto 0.000 0.0 - 0.012 X10*3/uL [facility] 04/03/2022 8:36 PM EST 04/03/2022 8:38 PM EST [facility] External Provider LAB BLO OD ORDERABLES Final Result Performing Organization Address [facility] de Phone Number [facility] [address] [place] [phone] * (ABNORMAL) GLUCOSE, WHOLE BLOOD (04/03/2022 7:56 PM EST) Pathologist [facility] Glucose, Whole Blood 227(H) 60 - 115 mg/dL [facility] Comment:METER #: [id number] 04/03/2022 7:56 PM EST 04/03/2022 8:01 PM EST [facility] External Provider LAB BLO OD ORDERABLES Final Result Performing Organization Address [facility] Phone Number [facility] [address] [place] [phone] * (ABNORMAL) B Type Natriuretic Peptide (BNP) (03/09/2022 5:39 PM EST) Pathologist [facility] B Type Natriuretic Peptide 125(H) <100 pg/mL [facility] Comment:For those patients w ho are being treated with Natrecor(nesiritide, recombinant BNP), BNP testing should beperformed at least two hours post treatment in order toensure that only endogenous levels of BNP are detected. 03/09/2022 5:39 PM EST 03/09/2022 6:48 PM EST [facility] External Provider LAB BLO OD ORDERABLES Final Result Performing Organization Address [facility] de Phone Number [facility] [address] [place] [phone] * SARS-CoV-2 RNA, Influenza A/B, and RSV RNA, Ql NAAT (03/09/2022 5:39 PM EST) Pathologist [facility] Influenza A PCR NEGATIVE Negative [facility] Influenza B PCR NEGATIVE Negative [facility] Resp Syncy Virus RNA Qual PCR NEGATIVE Negative [facility] SARS COV2 PCR NEGATIVE Negative [facility] SARS/Flu/RSV Note See Note [facility] Comment:All test results mus t [...] use by authorized laboratories.Testing performed on the AppTrigger GeneXpert utilizingreal-time RT-PCR.All SARS CoV2 and positive influenza A/B results arereported to [facility]. 03/09/2022 5:39 PM EST 03/09/2022 5:43 PM EST [facility] Exter nal Provider LAB MICROBIOLOGY - GENERAL ORDERABLES Final Result [facility] [address] [place] [address] [phone] * HIGH SENSITIVITY TROPONIN I (03/09/2022 5:39 PM EST) Pathologist [facility] TROPONIN I HIGH SENSITIVITY 5.6 <3.5 - 17.0 ng/L [facility] Comment:The Ibrahim high sens itivity Troponin-I results should beused in conjunction with other diagnostic information suchas ECG, clinical observations and information, and patientsymptoms to aid in the diagnosis of OR. 03/09/2022 5:39 PM EST 03/09/2022 5:43 PM EST us [facility] External Provider LAB BLO OD ORDERABLES Final Result [facility] [address] [place] [address] [phone] * (ABNORMAL) Comprehensive Metabolic Panel (03/09/2022 5:39 PM EST) Sodium 139 135 - 145 mmol/L [facility] Potassium 3.9 3.3 - 5.1 mmol/L [facility] Chloride 103 96 - 108 mmol/L [facility] Carbon Dioxide 27 22 - 29 mmol/L [facility] Anion Gap 13 12 - 20 [facility] Urea Nitrogen (BUN) 18(H) 9 - 16 mg/dL [facility] Creatinine, Serum 0.95 0.5 - 1.4 mg/dL [facility] Creatinine Clr Calc Pharmacy 53.0 [facility] Comment:Provided height and weight: 152.4 cm,65.2 kg.eGFR (calculated from the MDRD study equation) and eCrCl(calculated from the Cockcroft-Gault equation) are based ondifferent parameters and may not yield comparable results.If eCrCl result is absurd, please check patient'sheight/weight. Estimated Glomerular Filt Rate >60 [facility] Comment:NOTE: For -Am erican individuals, multiply the result by 1.210.Chronic Kidney Disease: Estimated GFR < 60 mL/min/1.54d6Amxyrz Kidney Disease: Estimated GFR < 15 mL/min/1.73m2 Glucose 326(H) 60 - 115 mg/dL [facility] Calcium 9.1 8.4 - 10.2 mg/dL [facility] Bilirubin, Total 0.3 0.0 - 1.0 mg/dL [facility] Aspartate Amino Transferase 8 5 - 31 U/L [facility] Alanine Aminotransferase <6 0 - 31 U/L [facility] Total Protein 5.9(L) 6.5 - 8.0 g/dL [facility] Albumin Level 3.6 3.5 - 5.0 g/dL [facility] Alkaline Phosphatase 81 39 - 117 U/L [facility] 03/09/2022 5:39 PM EST 03/09/2022 5:43 PM EST us [facility] External Provider LAB BLO OD ORDERABLES Final Result [facility] [address] [place] [address] [phone] * (ABNORMAL) CBC auto differential (03/09/2022 5:39 PM EST) White Blood Count 7.3 4.8 - 10.8 X10*3/uL [facility] Red Blood Count 4.03(L) 4.20 - 5.50 X10*6/uL [facility] Hemoglobin 11.7(L) 12.0 - 16.0 g/dl [facility] Hematocrit 35.1(L) 37.0 - 47.0 % [facility] Mean Corpuscular Volume 87.1 80.0 - 98.0 fL [facility] Mean Corpuscular Hemoglobin 29.0 27.0 - 33.0 pg [facility] Mean Corpuscular HGB Conc 33.3 31.0 - 35.0 g/dl [facility] Red Cell Distribution Width 13.4 11.0 - 16.0 % [facility] Platelet Count 296 160 - 400 X10*3/uL [facility] Mean Platelet Volume 9.3(L) 9.4 - 12.3 fL [facility] Neutrophils Percent Auto 63.9 45 - 73 % [facility] Imm Gran Pct Auto 0.1 0.0 - 0.4 % [facility] Lymphocytes Percent Auto 27.1 20 - 40 % [facility] Monocytes Percent Auto 5.9 2 - 11 % [facility] Eosinophils Percent Auto 2.6 0 - 4 % [facility] Basophils Percent Auto 0.4 0 - 2 % [facility] NRBC Pct Auto 0.0 0.0 - 0.2 /100WBC [facility] Neutrophils Absolute Auto 4.6 2.0 - 8.3 x10*3/uL [facility] Imm Gran Abs Auto 0.01 0.00 - 0.03 X10*3/uL [facility] Lymphocytes Absolute Auto 2.0 1.2 - 4.9 X10*3/uL [facility] Monocytes Absolute Auto 0.4 0.1 - 1.2 X10*3/uL [facility] Eosinophils Absolute Auto 0.2 0.0 - 0.4 X10*3/uL [facility] Basophils Absolute Auto 0.0 0.0 - 0.2 X10*3/uL [facility] NRBC Abs Auto 0.000 0.0 - 0.012 X10*3/uL [facility] 03/09/2022 5:39 PM EST 03/09/2022 5:43 PM EST [facility] External Provider LAB BLO OD ORDERABLES Final Result [facility] [address] [place] [phone] * Prothrombin Time-INR (03/09/2022 5:39 PM EST) Prothrombin Time 10.9 10.0 - 13.1 SEC [facility] INTERNATIONAL NORM RATIO 1.0 0.9 - 1.1 [facility] Comment:INTERNATIONAL NORMAL IZED RATIO (INR) [...] 5:39 PM EST 03/09/2022 5:43 PM EST [facility] External Provider LAB BLO OD ORDERABLES Final Result Performing Organization Address [facility] Co de Phone Number [facility] [address] [place] [phone] * GLUCOSE, WHOLE BLOOD (03/01/2022 12:41 AM EST) Glucose, Whole Blood 79 60 - 115 mg/dL [facility] Comment:METER #: [id number] 1 03/01/2022 12:4 1 AM EST 03/01/2022 12:46 AM EST [facility] External Provider LAB BLO OD ORDERABLES Final Result Performing Organization Address [facility] Phone Number [facility] [address] [place] [phone] * (ABNORMAL) GLUCOSE, WHOLE BLOOD (02/28/2022 10:39 PM EST) Glucose, Whole Blood 273(H) 60 - 115 mg/dL [facility] Comment:METER #: [id number] 1 02/28/2022 10:3 9 PM EST 02/28/2022 10:45 PM EST [facility] External Provider LAB BLO OD ORDERABLES Final Result Performing Organization Address [facility] Co de Phone Number [facility] [address] [place] [phone] * (ABNORMAL) Comprehensive Metabolic Panel (02/28/2022 9:42 PM EST) Sodium 138 135 - 145 mmol/L [facility] Potassium 4.3 3.3 - 5.1 mmol/L [facility] Comment:Slight Hemolysis Chloride 106 96 - 108 mmol/L [facility] Carbon Dioxide 24 22 - 29 mmol/L [facility] Anion Gap 12 12 - 20 [facility] Urea Nitrogen (BUN) 14 9 - 16 mg/dL [facility] Creatinine, Serum 0.87 0.5 - 1.4 mg/dL [facility] Creatinine Clr Calc Pharmacy 57.2 [facility] Comment:Provided height and weight: 152.4 cm,63.503 kg.eGFR (calculated from the MDRD study equation) and eCrCl(calculated from the Cockcroft-Gault equation) are based ondifferent parameters and may not yield comparable results.If eCrCl result is absurd, please check patient'sheight/weight. Estimated Glomerular Filt Rate >60 [facility] Comment:NOTE: For -Am erican individuals, multiply the result by 1.210.Chronic Kidney Disease: Estimated GFR < 60 mL/min/1.87q7Jqzbkh Kidney Disease: Estimated GFR < 15 mL/min/1.73m2 Glucose 378(HH) 60 - 115 mg/dL [facility] Comment:Critical value for t est(s): GLUR Results called to and readback by: EULA Person calling: BIANKA Date: 02/28/22Time: 2220 Calcium 9.3 8.4 - 10.2 mg/dL [facility] Bilirubin, Total 0.3 0.0 - 1.0 mg/dL [facility] Aspartate Amino Transferase 12 5 - 31 U/L [facility] Comment:Slight Hemolysis Alanine Aminotransferase 7 0 - 31 U/L [facility] Total Protein 6.7 6.5 - 8.0 g/dL [facility] Albumin Level 3.9 3.5 - 5.0 g/dL [facility] Alkaline Phosphatase 83 39 - 117 U/L [facility] 02/28/2022 9:42 PM EST 02/28/2022 9:48 PM EST us [facility] External Provider LAB BLO OD ORDERABLES Final Result [facility] [address] [place] [address] [phone] * HIGH SENSITIVITY TROPONIN I (02/28/2022 9:42 PM EST) TROPONIN I HIGH SENSITIVITY 7.1 <3.5 - 17.0 ng/L [facility] Comment:The Ibrahim high sens itivity Troponin-I results should beused in conjunction with other diagnostic information suchas ECG, clinical observations and information, and patientsymptoms to aid in the diagnosis of OR. 02/28/2022 9:42 PM EST 02/28/2022 9:48 PM EST us [facility] External Provider LAB BLO OD ORDERABLES Final Result [facility] [address] [place] [address] [phone] * (ABNORMAL) CBC (02/28/2022 9:42 PM EST) [facility] White Blood Count 7.0 4.8 - 10.8 X10*3/uL [facility] Red Blood Count 4.22 4.20 - 5.50 X10*6/uL [facility] Hemoglobin 12.1 12.0 - 16.0 g/dl [facility] Hematocrit 36.4(L) 37.0 - 47.0 % [facility] Mean Corpuscular Volume 86.3 80.0 - 98.0 fL [facility] Mean Corpuscular Hemoglobin 28.7 27.0 - 33.0 pg [facility] Mean Corpuscular HGB Conc 33.2 31.0 - 35.0 g/dl [facility] Red Cell Distribution Width 13.3 11.0 - 16.0 % [facility] Platelet Count 311 160 - 400 X10*3/uL [facility] Mean Platelet Volume 9.7 9.4 - 12.3 fL [facility] NRBC Pct Auto 0.0 0.0 - 0.2 /100WBC [facility] NRBC Abs Auto 0.000 0.0 - 0.012 X10*3/uL [facility] 02/28/2022 9:42 PM EST 02/28/2022 9:48 PM EST [facility] External Provider LAB BLO OD ORDERABLES Final Result Performing Organization Address City/[facility]/ZIP Co de Phone Number [facility] [address] [place] [address] [phone] * (ABNORMAL) GLUCOSE, WHOLE BLOOD (02/28/2022 9:38 PM EST) Glucose, Whole Blood 379(HH) 60 - 115 mg/dL [facility] Comment:METER #: [id number] 1 02/28/2022 9:38 PM EST 02/28/2022 9:48 PM EST [facility] External Provider LAB BLO OD ORDERABLES Final Result Performing Organization Address [facility] Co de Phone Number [facility] [address] [place] [phone] * (ABNORMAL) Urinalysis, Complete, with Reflex to Culture (02/22/2022 3:20 PM EST) Color Urine Yellow [facility] Appearance Urine Cloudy [facility] PH 6.5 5.0 - 9.0 [facility] Glucose Urine UA >=1000(A) Negative mg/dL [facility] Urine Blood Negative Negative [facility] Specific [place] - Urine 1.020 1.005 - 1.025 [facility] Urine Protein 100 (2+)(A) Neg-Trace mg/dL [facility] Urine Ketones Negative Negative mg/dL [facility] Nitrite Urine Negative Negative [facility] Leukocyte Esterase Urine Small (1+)(A) Negative [facility] RBC Urine 3-5(A) 0 - 2 /HPF [facility] Urine WBC 0-5 0 - 5 /HPF [facility] Urine Squamous Epithelial Cell 0-2 0 - 2 /HPF [facility] Urine Bacteria None Seen None Seen [facility] Hyaline Casts, Urine 3-5 0 - 2 /LPF [facility] 02/22/2022 3:20 PM EST 02/22/2022 3:27 PM EST Narrative [facility] - 02/22/2022 4:14 PM EST [id number], Clean Catch [facility] External Provider LAB URI NE ORDERABLES Final Result Performing Organization Address [facility]/ZIP Co de Phone Number [facility] [address] [place] [phone] * SARS-CoV-2 RNA, Influenza A/B, and RSV RNA, Ql NAAT (02/22/2022 3:14 PM EST) Influenza A PCR NEGATIVE Negative [facility] Influenza B PCR NEGATIVE Negative [facility] Resp Syncy Virus RNA Qual PCR NEGATIVE Negative [facility] SARS COV2 PCR NEGATIVE Negative [facility] SARS/Flu/RSV Note See Note [facility] Comment:All test results mus t [...] use by authorized laboratories.Testing performed on the [employer]Trigger GeneXpert utilizingreal-time RT-PCR.All SARS CoV2 and positive influenza A/B results are[facility] to [facility]. 02/22/2022 3:14 PM EST 02/22/2022 3:19 PM EST [facility] Exter nal Provider LAB MICROBIOLOGY - GENERAL ORDERABLES Final Result Performing Organization Address [facility]/ZIP Co de Phone Number [facility] [address] [place] [phone] * HIGH SENSITIVITY TROPONIN I (02/22/2022 3:14 PM EST) [facility] TROPONIN I HIGH SENSITIVITY 8.8 <3.5 - 17.0 ng/L [facility] Comment:The Ibrahim high sens itivity Troponin-I results should beused in conjunction with other diagnostic information suchas ECG, clinical observations and information, and patientsymptoms to aid in the diagnosis of OR. 02/22/2022 3:14 PM EST 02/22/2022 3:19 PM EST [facility] External Provider LAB BLO OD ORDERABLES Final Result Performing Organization Address [facility]/ZIP Co de Phone Number [facility] [address] [place] [phone] * Magnesium (02/22/2022 3:14 PM EST) [facility] Magnesium 1.6 1.6 - 2.6 mg/dL [facility] 02/22/2022 3:14 PM EST 02/22/2022 3:19 PM EST [facility] External Provider LAB BLO OD ORDERABLES Final Result Performing Organization Address [facility] Co de Phone Number [facility] [address] [place] [phone] * (ABNORMAL) Basic Metabolic Panel (02/22/2022 3:14 PM EST) [facility] Sodium 136 135 - 145 mmol/L [facility] Potassium 4.4 3.3 - 5.1 mmol/L [facility] Chloride 103 96 - 108 mmol/L [facility] Carbon Dioxide 27 22 - 29 mmol/L [facility] Anion Gap 10(L) 12 - 20 [facility] Urea Nitrogen (BUN) 20(H) 9 - 16 mg/dL [facility] Creatinine, Serum 0.99 0.5 - 1.4 mg/dL [facility] Creatinine Clr Calc Pharmacy 50.6 [facility] Comment:Provided height and weight: 152.4 cm,64.5 kg.eGFR (calculated from the MDRD study equation) and eCrCl(calculated from the Cockcroft-Gault equation) are based ondifferent parameters and may not yield comparable results.If eCrCl result is absurd, please check patient'sheight/weight. Estimated Glomerular Filt Rate 57 [facility] Comment:NOTE: For -Am erican individuals, multiply the result by 1.210.Chronic Kidney Disease: Estimated GFR < 60 mL/min/1.88o7Rprwfe Kidney Disease: Estimated GFR < 15 mL/min/1.73m2 Glucose 343(H) 60 - 115 mg/dL [facility] Calcium 9.3 8.4 - 10.2 mg/dL [facility] 02/22/2022 3:14 PM EST 02/22/2022 3:19 PM EST [facility] External Provider LAB BLO OD ORDERABLES Final Result [facility] [address] [place] [phone] * (ABNORMAL) Hepatic Function Panel (02/22/2022 3:14 PM EST) Bilirubin, Total 0.4 0.0 - 1.0 mg/dL [facility] Bilirubin, Direct <0.2 0.0 - 0.5 mg/dL [facility] Aspartate Amino Transferase 10 5 - 31 U/L [facility] Alanine Aminotransferase 6 0 - 31 U/L [facility] Total Protein 6.1(L) 6.5 - 8.0 g/dL [facility] Albumin Level 3.7 3.5 - 5.0 g/dL [facility] Alkaline Phosphatase 82 39 - 117 U/L [facility] 02/22/2022 3:14 PM EST 02/22/2022 3:19 PM EST us [facility] External Provider LAB BLO OD ORDERABLES Final Result [facility] [address], [place] [phone] * (ABNORMAL) CBC auto differential (02/22/2022 3:14 PM EST) White Blood Count 5.6 4.8 - 10.8 X10*3/uL [facility] Red Blood Count 3.99(L) 4.20 - 5.50 X10*6/uL [facility] Hemoglobin 11.8(L) 12.0 - 16.0 g/dl [facility] Hematocrit 35.1(L) 37.0 - 47.0 % [facility] Mean Corpuscular Volume 88.0 80.0 - 98.0 fL [facility] Mean Corpuscular Hemoglobin 29.6 27.0 - 33.0 pg [facility] Mean Corpuscular HGB Conc 33.6 31.0 - 35.0 g/dl [facility] Red Cell Distribution Width 13.2 11.0 - 16.0 % [facility] Platelet Count 265 160 - 400 X10*3/uL [facility] Mean Platelet Volume 10.0 9.4 - 12.3 fL [facility] Neutrophils Percent Auto 49.1 45 - 73 % [facility] Imm Gran Pct Auto 0.4 0.0 - 0.4 % [facility] Lymphocytes Percent Auto 40.1(H) 20 - 40 % [facility] Monocytes Percent Auto 6.1 2 - 11 % [facility] Eosinophils Percent Auto 3.4 0 - 4 % [facility] Basophils Percent Auto 0.9 0 - 2 % [facility] NRBC Pct Auto 0.0 0.0 - 0.2 /100WBC [facility] Neutrophils Absolute Auto 2.7 2.0 - 8.3 x10*3/uL [facility] Imm Gran Abs Auto 0.02 0.00 - 0.03 X10*3/uL [facility] Lymphocytes Absolute Auto 2.2 1.2 - 4.9 X10*3/uL [facility] Monocytes Absolute Auto 0.3 0.1 - 1.2 X10*3/uL [facility] Eosinophils Absolute Auto 0.2 0.0 - 0.4 X10*3/uL [facility] Basophils Absolute Auto 0.1 0.0 - 0.2 X10*3/uL [facility] NRBC Abs Auto 0.000 0.0 - 0.012 X10*3/uL [facility] 02/22/2022 3:14 PM EST 02/22/2022 3:19 PM EST [facility] External Provider LAB BLO OD ORDERABLES Final Result Performing Organization Address [facility] Co de Phone Number [facility] [address] [place] [phone] * Culture, Urine, Routine (02/22/2022 12:00 AM EST) 02/22/2022 02/22/2022 5:2 3 PM EST Comment:UACC Narrative [facility] - 02/24/2022 11:31 AM EST Urine Culture Report Result Urine Culture 10,000 to 50,000 cfu/ml Urine Culture Mixed bacterial benton characteristic of Urine Culture urogenital contamination. Specimen Source: Urine clean catch [facility] Exter nal Provider LAB MICROBIOLOGY - GENERAL ORDERABLES Final Result Performing Organization Address [facility] de Phone Number [facility] [address] [place] [phone] documented in this encounter Visit Diagnoses Not on filedocumented in this encounter Care Teams Air Valve Repairer Relationship Specialty Start Date End Date Radha Jamison DO [address] [place] [phone] PCP - General Family Medicine 01/26/12 Abdias Murillo, Camron [address] [place] [address] Pharmacist Internal Medicine 03/21/22 08/30/23 Nelia Sullivan, PharmD [address] [place] [address] Pharmacist Internal Medicine 08/31/23 Laurel Monterroso Television InspectorRn Bsn 10/27/22 Saige Aguilar 09/26/23 documented as of this encounter
--- OUTSIDE RECORDS SUMMARY | 2024-10-22 11:31 | XMS_ITS | Encounter Summary ---
Author Organization [employer] Address [address] [facility] [address] [place] [address] Care Team Providers Care Health Physicist Name Role Phone Radha Jamison DO Primary Care Provider [phone] Nelia Sullivan PharmD Unavailable [phone] Reason for Visit * Reason Comments Med Refill Encounter Details Date Type Department Care Team ([facility] st Contact Info) Description 10/30/2023 Refill [facility] [address] [place], [place] [phone] Radha Jamison DO [address] [place] [address] Chronic bilateral low back pain, unspecified whether [facility] [address] [place], [place] [phone] 11/05/2024 11:00 AM EDT Medication Management [facility] [address] [place] [phone] Felice Sullivanyssa, PharmD [address] [place] [phone] 11/11/2024 1:00 PM EDT Office Visit [facility] [address] [place] [phone] Vickie Penaloza MD [address] [place], [place] [phone] documented as of this encounter Goals Goal [...] as of this encounter Care Teams Health Physicist Relationship Specialty Start Date End Date Radha Jamison DO [address] [place] [address] PCP - General Family Medicine 01/26/12 Nelia Sullivan, PharmD [address] [place] [address] Pharmacist Internal Medicine 08/31/23 Laurel Monterroso Journeyman PatternmakerLog Inspector 10/27/22 Saige Aguilar 09/26/23 documented as of this encounter
--- OUTSIDE RECORDS SUMMARY | 2024-10-22 11:31 | XMS_ITS | Encounter Summary ---
Author Organization [employer] Address [address] [facility] [address]t [place] [address] Care Team Providers Care Ratchet Setter Name Role Phone KassandraRadha flores Primary Care Provider [phone] Abdias Murillo PharmD Unavailable Unavail able Nelia Sullivan PharmD Unavailable [phone] Reason for Visit * Reason Onset Date Comments Med Refill Appointment 05/15/2022 Re: her appt for today as [id number] @ 10:15 am. & No active phone # at this time. Encounter Details Date Type Department Care Team (Late st Contact Info) Description 05/15/2022 Refill [facility] [address] [place] [address] Abdias Murillo, PharmD Type 2 diabetes mellitus with other specified complication, with long-term current use of insulin ([facility]) Social History Tobacco Use Types [...] Miscellaneous Notes * Telephone Encounter - Monica Tillman - 05/16/2022 9:46 AM EDT T/C placed to pt regarding her appt for today as [id number] @ 10:15 am. And her phone # is not active at this time. documented in this encounter Plan of Treatment Upcoming Encounters Date Type Department Care Team (Late st Contact Info) Description 11/05/2024 10:00 AM EDT Office Visit [facility] OPTOMETRY [address] [place], [place] [phone] 11/05/2024 11:00 AM EDT Medication Management [facility] [address] [place] [address] Nelia Sullivan PharmD [address] [place] [address] 11/11/2024 1:00 PM EDT Office Visit [facility] [address] [place] [address] Vickie Penaloza MD [address] [place] [address] documented as of this encounter Goals Goal Patient Goal Type Associated Problems Recent Progress Patient-Stated? Author Hemoglobin A1c < 7 Result Component 10.1( 4:57 PM EDT) No Abdias Murillo, PharmD documented as of this encounter Visit Diagnoses Diagnosis Type 2 diabetes mellitus with other specified complication, with long-term current use of insulin ([facility]) documented in this encounter Additional Health Concerns Assessment Noted Time PHQ-9 Depression Total Score: 14 023 12:00 PM EST documented as of this encounter Care Teams Ratchet Setter Relationship Specialty Start Date End Date Radha Jamison DO [address] [place] [phone] PCP - General Family Medicine 01/26/12 Abdias Murillo, PharmD [address] [place] [address] Pharmacist Internal Medicine 03/21/22 08/30/23 Nelia Sullivan, KeithD [address] [place] [address] Pharmacist Internal Medicine 08/31/23 Laurel Monterroso Rivet DriverBull Bucker 10/27/22 Saige Aguilar 09/26/23 documented as of this encounter
--- OUTSIDE RECORDS SUMMARY | 2024-10-22 11:31 | XMS_ITS | Encounter Summary ---
Author Organization [employer] Address [address] [place] [address] Care Team Providers Care Director Of Veterans Affairs Name Role Phone Radha Jamison DO Primary Care Provider +1- [phone] Nelia Sullivan PharmD Unavailable [phone] Encounter Details Date Type Department Care Team ([facility] st Contact Info) Description 01/30/2024 Telephone [facility] [address] [place], [place] [phone] Radha Jamison DO [address] [place] [address] Social History Tobacco Use Types Packs/Day Years [...] Description 11/05/2024 10:00 AM EDT Office Visit [facility] [address] [place], [place] [phone] 11/05/2024 11:00 AM EDT Medication Management [facility] [address] [place] [address] Nelia Sullivan, PharmD [address] [place] [address] 11/11/2024 1:00 PM EDT Office Visit [facility] [address] [place] [address] Vickie Penaloza MD [address] [place] [address] documented as of this encounter Goals Goal Patient Goal Type Associated Problems Recent Progress Patient-Stated? Author Record your blood pressure once per day Blood Pressure No Nelia Sullivan, PharmD Blood Pressure < 140/90 Blood Pressure 140/80(2024 9:33 AM EDT) No AnaiiaFeliceNelia, PharmD Smoking cessation General No AnaiiaFeliceNelia, PharmD Patient will adhere to medication regimen General No AnaiiaYazminsa, PharmD Hemoglobin A1c < 7 Result Component 10.1(09/04/19 4:57 PM EDT) No DelAbdias hardy PharmD Record your blood sugar as directed [...] of this encounter Care Teams Director Of Veterans Affairs Relationship Specialty Start Date End Date Radha Jamison DO [address] [place] [address] PCP - General Family Medicine 01/26/12 Nelia Sullivan, PharmD [address] [place] [address] Pharmacist Internal Medicine 08/31/23 Laurel Monterroso Line LeadProduction Recovery Operator 10/27/22 Saige Aguilar 09/26/23 documented as of this encounter
--- OUTSIDE RECORDS SUMMARY | 2024-10-22 11:31 | XMS_ITS | Encounter Summary ---
Author Organization [employer] Address [address] [facility] 7t [place] [address] Care Team Providers Care Field Property Loss Specialist Name Role Phone Radha Jamison DO Primary Care Provider [phone]- [phone] Nelia Sullivan PharmD Unavailable [phone] Reason for Visit * Reason Comments Med Refill Encounter Details Date Type Department Care Team ([facility] st Contact Info) Description 11/21/2023 Refill [facility] [address] [place], [place] [phone] Radha Jamison DO 230 [place] [address] Chronic bilateral low back pain, unspecified whether [...] Description 11/05/2024 10:00 AM EDT Office Visit [facility] [address] [place], [place] [phone] 11/05/2024 11:00 AM EDT Medication Management [facility] [address] [place] [address] Felice Sullivanyssa, PharmD [address] [place] [address] 11/11/2024 1:00 PM EDT Office Visit [facility] [address] [place] [address] Vickie Penaloza MD [address] [place], [place] [phone] documented as of this encounter Goals Goal [...] as of this encounter Care Teams Field Property Loss Specialist Relationship Specialty Start Date End Date Radha Jamison DO [address] [place] [address] PCP - General Family Medicine 01/26/12 Nelia Sullivan, PharmD [address] [place] [address] Pharmacist Internal Medicine 08/31/23 Laurel Monterroso Channel RebuilderDeposition Operator 10/27/22 Saige Aguilar 09/26/23 documented as of this encounter
--- OUTSIDE RECORDS SUMMARY | 2024-10-22 11:31 | XMS_ITS | Encounter Summary ---
Author Organization [employer] Address [address] [facility] 7t [place] [address] Care Team Providers Care Remote Control Mirror Installer Name Role Phone Radha Jamison DO Primary Care Provider DelAbdias hardy PharmD Unavailable Unavail able Nelia Sullivan PharmD Unavailable [phone] Reason for Visit * Reason Comments Med Refill Encounter Details Date Type Department Care Team ([facility] Contact Info) Description 01/31/2022 Refill [facility] [address] [place] [address] Radha Jamison DO 230 [place] [address] Chronic bilateral low back pain, unspecified whether [...] 11/05/2024 10:00 AM EDT Office Visit [facility] OPTOMET[facility] [address] [place] [address] 11/05/2024 11:00 AM EDT Medication Management [facility] MEDICINE [address] [place] [address] Nelia Sullivan, [place] [address] 11/11/2024 1:00 PM EDT Office Visit [facility] MEDICINE [address] [place] [address] Vickie Penaloza MD [address] [place] [address] documented as of this encounter Visit Diagnoses Diagnosis Chronic bilateral low back pain, unspecified whether sciatica present documented in this encounter Care Teams Remote Control Mirror Installer Relationship Specialty Start Date End Date Radha Jamison DO [address] [place] [address] PCP - General Family Medicine 01/26/12 Abdias Murillo, PharmD [address] [place] [address] Pharmacist Internal Medicine 03/21/22 08/30/23 Nelia Sullivan, PharmD [address] [place] [address] Pharmacist Internal Medicine 08/31/23 Laurel Monterroso Sap Technical ArchitectDirt Bike Mechanic 10/27/22 Saige Aguilar 09/26/23 documented as of this encounter
--- OUTSIDE RECORDS SUMMARY | 2024-10-22 11:31 | XMS_ITS | Encounter Summary ---
Author Organization [employer] Address [address] [facility] 7t [place] [address] Care Team Providers Care Therapy Director Name Role Phone Radha Jamison DO Primary Care Provider [phone] Abdias Murillo PharmD Unavailable Unavail able Nelia Sullivan PharmD Unavailable [phone] Reason for Visit * Reason Comments Med Refill Encounter Details Date Type Department Care Team (Late st Contact Info) Description 12/22/2022 Refill [facility] [address] [place] [address] Radha Jamison DO 230 [place] [address] Chronic bilateral low back pain, unspecified whether [...] Description 11/05/2024 10:00 AM EDT Office Visit [facility] [address] [place] [address] 11/05/2024 11:00 AM EDT Medication Management [facility] [address] [place] [address] Nelia Sullivan PharmD [address] [place] [address] 11/11/2024 1:00 PM EDT Office Visit [facility] [address] [place] [address] Vickie Penaloza MD [address] [place] [address] documented as of this encounter Goals Goal [...] documented as of this encounter Care Teams Therapy Director Relationship Specialty Start Date End Date Radha Jamison DO [address] [place] [address] PCP - General Family Medicine 01/26/12 Abdias Murillo, KeithD [address] [facility] [place] [address] Pharmacist Internal Medicine 03/21/22 08/30/23 Nelia Sullivan PharmD [address] [place] [address] Pharmacist Internal Medicine 08/31/23 Laurel Monterroso Painter And DecoratorRaise Driller 10/27/22 Saige Aguilar 09/26/23 documented as of this encounter
--- OUTSIDE RECORDS SUMMARY | 2024-10-22 11:31 | XMS_ITS | Encounter Summary ---
Author Organization [employer] Address [address] [facility] 7t [place] [address] Care Team Providers Care Automatic Lump Making Machine Tender Name Role Phone Radha Jamison DO Primary Care Provider [phone]- [phone] Abdias Murillo PharmD Unavailable Unavail able Nelia Sullivan PharmD Unavailable [phone] Reason for Visit * Reason Comments Med Refill Encounter Details Date Type Department Care Team (Late st Contact Info) Description 03/14/2023 Refill [facility] 230 [place] [address] Radha Jamison DO 230 [place] [address] Chronic bilateral low back pain, unspecified whether [...] Description 11/05/2024 10:00 AM EDT Office Visit [facility] [address] [place] [address] 11/05/2024 11:00 AM EDT Medication Management [facility] [address] [place] [address] Nelia Sullivan PharmD [address] [place] [address] 11/11/2024 1:00 PM EDT Office Visit [facility] [address] [place] [address] Vickie Penaloza MD [address] [place] [address] documented as of this encounter Goals Goal [...] documented as of this encounter Care Teams Automatic Lump Making Machine Tender Relationship Specialty Start Date End Date Radha Jamison DO [address] [place] [address] PCP - General Family Medicine 01/26/12 Abdias Murillo, KeithD [address] [facility] [place] [address] Pharmacist Internal Medicine 03/21/22 08/30/23 Nelia Sullivan PharmD 230 [place] [address] Pharmacist Internal Medicine 08/31/23 Laurel Monterroso Biochemistry ProfessorCluster Bore Operator 10/27/22 Saige Aguilar 09/26/23 documented as of this encounter
--- OUTSIDE RECORDS SUMMARY | 2024-10-22 11:31 | XMS_ITS | Encounter Summary ---
Author Organization [employer] Address [address] [facility] 7t [place] [address] Care Team Providers Care Sleeve Separator Name Role Phone Radha Jamison DO Primary Care Provider [phone]- [phone] Abdias Murillo PharmD Unavailable Unavail able Nelia Sullivan PharmD Unavailable [phone] Reason for Visit * Reason Comments Med Refill Encounter Details Date Type Department Care Team (Late st Contact Info) Description 02/15/2023 Refill [facility] [address] [place] [address] Radha Jamison DO [address] [place] [address] Chronic bilateral low back pain, unspecified whether [...] Description 11/05/2024 10:00 AM EDT Office Visit [facility] [address] [place] [address] 11/05/2024 11:00 AM EDT Medication Management [facility] [address] [place] [address] Nelia Sullivan PharmD [address] [place] [address] 11/11/2024 1:00 PM EDT Office Visit [facility] [address] [place] [address] Vickie Penaloza MD [address] [place] [address] documented as of this encounter Goals Goal [...] documented as of this encounter Care Teams Sleeve Separator Relationship Specialty Start Date End Date Radha Jamison DO [address] [place] [address] PCP - General Family Medicine 01/26/12 Abdias Murillo, KeithD [address] [facility] [place] [address] Pharmacist Internal Medicine 03/21/22 08/30/23 Nelia Sullivan PharmD [address] [place] [address] Pharmacist Internal Medicine 08/31/23 Laurel Monterroso Molasses Coloring OperatorTubing Mill Operator 10/27/22 Saige Aguilar 09/26/23 documented as of this encounter
--- OUTSIDE RECORDS SUMMARY | 2024-10-22 11:31 | XMS_ITS | Encounter Summary ---
Author Organization [employer] Address [address] [facility] 7t [place] [address] Care Team Providers Care Rig Superintendent Name Role Phone Radha Jamison DO Primary Care Provider [phone] Abdias Murillo PharmD Unavailable Unavail able Nelia Sullivan PharmD Unavailable [phone] Reason for Visit * Reason Comments Med Refill Encounter Details Date Type Department Care Team (Late st Contact Info) Description 02/14/2023 Refill [facility] [address] [place] [address] Radha Jamison DO [address] [place] [address] Chronic bilateral low back pain, unspecified whether [...] Description 11/05/2024 10:00 AM EDT Office Visit [facility] OPTOMETRY [address] [place] [address] 11/05/2024 11:00 AM EDT Medication Management [facility] [address] [place] [address] Nelia Sullivan PharmD [address] [place] [address] 11/11/2024 1:00 PM EDT Office Visit [facility] MED[facility] [address] [place] [address] Vickie Penaloza MD [address] [place] [address] documented as of this encounter Goals Goal [...] documented as of this encounter Care Teams Rig Superintendent Relationship Specialty Start Date End Date Radha Jamison DO [address] [place] [address] PCP - General Family Medicine 01/26/12 Abdias Murillo, KeithD [address] [facility] [place] [address] Pharmacist Internal Medicine 03/21/22 08/30/23 Nelia Sullivan PharmD [address] [place] [address] Pharmacist Internal Medicine 08/31/23 Laurel Monterroso Soaking Tank WorkerChainstitch Zipper Setter 10/27/22 Saige Aguilar 09/26/23 documented as of this encounter
== END 2024-10-22 10:22 | disposition home or self-care (01) ==
LOC: HO.HVS 09:47
PROVIDERS: PCP Family Medicine; Visit Provider Surgery Vascular Surgery
DX: I65.23 Occlusion and stenosis of bilateral carotid arteries (principal)
CPT/HCPCS: 99214

== ENCOUNTER → 2024-10-22 09:47 | Outpatient (BNVA) | payer MEDICAID, SELFPAY | PROVIDERS: PCP Family Medicine; Visit Provider Surgery Vascular Surgery | DX: I65.23 Occlusion and stenosis of bilateral carotid arteries (principal); I10 Essential (primary) hypertension; F17.210 Nicotine dependence, cigarettes, uncomplicated | CPT/HCPCS: 99212 ==

== ENCOUNTER 2024-10-24 00:08 | Emergency (ER) | payer MEDICAID, SELFPAY ==
[2024-10-24] VITALS (9 sets, daily range): BP systolic 105–213; BP diastolic 44–94; PULSE 74–91; RESP 16–18; TEMP 36.6–36.7; O2SAT 95–98; BMI 26.1
[2024-10-24 00:53] LABS: MANUAL DIFF FLAG NO
[2024-10-24 00:54] LABS: Hematocrit 30.8 % (37.0-47.0); Hemoglobin 10.5 g/dl (12.0-16.0); Imm Gran Abs Auto 0.03 X10*3/uL (0.00-0.03); Imm Gran Pct Auto 0.4 % (0.0-0.4); Lymphocytes Absolute Auto 1.8 X10*3/uL (1.2-4.9); Mean Corpuscular HGB Conc 34.1 g/dl (31.0-35.0); Mean Corpuscular Hemoglobin 29.4 pg (27.0-33.0); Mean Corpuscular Volume 86.3 fL (80.0-98.0); NRBC Abs Auto 0.000 X10*3/uL (0.0-0.012); NRBC Pct Auto 0.0 /100WBC (0.0-0.2); Platelet Count 287 X10*3/uL (160-400); Red Blood Count 3.57 X10*6/uL (4.20-5.50); White Blood Count 8.2 X10*3/uL (4.8-10.8)
--- NOTE | 2024-10-24 00:55 | ED.GENADULT ---
HPI - General Adult General Chief complaint: Abdominal Pain Stated complaint: Abd pain , vomiting Time Seen by Provider: 10/24/24 00:54 History of Present Illness ED Provider: Carisa METZ narrative: The patient is a 63-year-old woman who says that around 22:00 this evening she developed a headache associated with nausea and vomiting. She checked her blood pressure and it was high. She says that the headache is similar to headaches she has had in the past with hypertension. She also indicates that she has a epigastric discomfort. No fever, sweats, chills. The patient has a history of multiple ER visits with the complaints of headache. She says that tonight's headache is similar to previous headaches. She says that her headaches are often associated with high blood pressures. She also says that her upper abdominal pain is similar to previous episodes of upper abdominal pain. Related Data Home Medications ?Medication ?Instructions ?Recorded ?Confirmed aspirin 81 mg tablet,delayed 81 mg PO DAILY 01/02/20 10/15/24 release (Adult Low Dose Aspirin) atorvastatin 80 mg tablet (Lipitor) 80 mg PO BEDTIME 01/02/20 10/15/24 escitalopram oxalate 20 mg tablet 20 mg PO DAILY@1800 01/02/20 10/15/24 (Lexapro) mirtazapine 45 mg tablet 45 mg PO BEDTIME 01/02/20 10/15/24 multivitamin 1 tab PO DAILY 01/02/20 10/15/24 blood sugar diagnostic (FreeStyle #10 ea 03/30/21 08/08/24 Lite Strips) insulin degludec 100 unit/mL (3 14 unit subcut DAILY 10/03/22 10/15/24 mL) subcutaneous pen (Tresiba FlexTouch U-100 insulin) docusate sodium 100 mg capsule 100 mg PO BID 01/30/24 10/15/24 ezetimibe 10 mg tablet 10 mg PO DAILY 04/11/24 10/15/24 amitriptyline 50 mg tablet 50 mg PO BEDTIME 08/08/24 10/15/24 empagliflozin 12.5 mg-metformin 1 tab PO BID 08/08/24 10/15/24 1,000 mg tablet (Synjardy) gabapentin 600 mg tablet 600 mg PO BID 08/08/24 10/15/24 hydrochlorothiazide 50 mg tablet 50 mg PO DAILY 08/08/24 10/15/24 acetaminophen 650 mg 650 mg PO Q8H 08/27/24 10/15/24 tablet,extended release albuterol sulfate 90 mcg/actuation 2 puff inhalation Q6H PRN 08/27/24 10/15/24 aerosol inhaler (Ventolin HFA) Shortness Of Breath Or Wheezing ferrous sulfate 325 mg (65 mg 325 mg PO BID PRN Iron Levels 08/27/24 10/15/24 iron) tablet fluticasone propionate 50 2 spray intranasal DAILY 08/27/24 10/15/24 mcg/actuation nasal spray,suspension isosorbide mononitrate 30 mg 30 mg PO DAILY 08/27/24 10/15/24 tablet,extended release 24 hr lisinopril 40 mg tablet 40 mg PO DAILY 08/27/24 10/15/24 loratadine 10 mg tablet 10 mg PO DAILY 08/27/24 10/15/24 mometasone 100 mcg/actuation HFA 2 puff inhalation BID 08/27/24 10/15/24 aerosol inhaler (Asmanex HFA) nicotine (polacrilex) 2 mg buccal 2 mg PO Q1-2H PRN Nicotine Cravings 08/27/24 10/15/24 lozenge omeprazole 20 mg capsule,delayed 40 mg PO BIDWM@0800,1700 08/27/24 10/15/24 release semaglutide 0.25 mg or 0.5 mg (2 0.5 mg subcut FR 08/27/24 10/15/24 mg/3 mL) subcutaneous pen injector (Ozempic) clopidogrel 75 mg tablet 75 mg PO DAILY 10/15/24 10/15/24 telmisartan 80 mg tablet 80 mg PO DAILY 10/15/24 10/15/24 Previous Rx's ?Medication ?Instructions ?Recorded pioglitazone 15 mg tablet 15 mg PO DAILY 30 days #30 tabs 12/02/20 carvedilol 25 mg tablet (Coreg) 25 mg PO BID #120 tabs 04/29/24 nifedipine 90 mg tablet,extended 90 mg PO BEDTIME #90 tabs 04/29/24 release 24 hr apixaban 5 mg tablet (Eliquis) 5 mg PO BID #74 tabs 08/28/24 hydralazine 25 mg tablet 25 mg PO TID 30 days #90 tabs 10/17/24 nicotine 7 mg/24 hr daily 7 mg transdermal DAILY 30 days #30 10/17/24 transdermal patch ea Allergies Allergy/AdvReac Type Severity Reaction Status Date / Time latex (LATEX) Allergy Severe RASH Verified 10/24/24 00:16 naproxen (From NAPROSYN) AdvReac Intermediate TACHYCARDIA Verified 10/24/24 00:16 Review of Systems Review of Systems: Yes all other systems are reviewed and are negative [facility] Past Medical History Medical History Chronic anemia NSTEMI (non-ST elevated myocardial infarction) Mild aortic valve stenosis LORE (obstructive sleep apnea) Chronic low back pain Lumbar spinal stenosis HTN (hypertension) Vitamin D deficiency HLD (hyperlipidemia) T2DM (type 2 diabetes mellitus) H. pylori infection CAD (coronary artery disease) Cyst (solitary) of breast Kidney calculi Arthritis Asthma HTN (hypertension) Diabetes Surgical History History of right-sided carotid endarterectomy (~11/2022) S/P aortogram History of esophagogastroduodenoscopy (EGD) Hx of colonoscopy History of breast surgery History of cardiac cath Family History Family History Mother Diabetes Liver cancer Social History Social History Household Members: Other Household Members Other:: friend and adult son Housing: Apartment Are you a primary client care coordinator to a significant other at home: No Do you presently have visiting nurse or other home services: Yes Alcohol intake: never Comment: refuses bed alarm Patient Tobacco Use Status: Current everyday Tobacco user Tobacco use type: Cigarette Cigarette Packs Per Day: 1 Cigarettes Per Day: 2 Years Smoked: 30 e-Cigarette/Vaping Use: Currently Using Second Hand Smoke Exposure: Yes Use of substances other than those prescribed or required for medical reasons: No Advance Directives: Yes Advance Directives on File: Yes Advance Directives Date on File: 09/26/23 service: No Current occupational status: unemployed and disabled Physical Exam ED Vital Signs: Vital Signs - 24 hr 10/24/24 00:14 10/24/24 00:37 10/24/24 02:00 Temperature 98.1 F Pulse Rate 80 77 Respiratory Rate 18 Blood Pressure 213/76 H 184/71 H 172/60 H Pulse Oximetry 98 96 Oxygen Delivery Method Room Air 10/24/24 02:05 10/24/24 02:20 10/24/24 02:30 Temperature Pulse Rate 74 Respiratory Rate Blood Pressure 153/55 H 135/48 L 105/44 L Pulse Oximetry Oxygen Delivery Method 10/24/24 04:09 10/24/24 06:00 10/24/24 06:49 Temperature 98 F 98 F Pulse Rate 76 76 76 Respiratory Rate 16 16 16 Blood Pressure 146/64 H 163/67 H 163/67 H Pulse Oximetry 98 96 Oxygen Delivery Method Room Air Room Air BMI result Body Mass Index 26.1 Const Other: The patient was awake and alert. Mental status seems normal. She did not seem obviously acutely ill. Orientation/consciousness: patient oriented x3 HENMT Other: The face is symmetrical. ?Mucous membranes moist. Eyes Other: Pupils are round equal, conjunctivae are clear, extraocular movements intact Neck Neck: Yes normal visual inspection, Yes full ROM and Yes no meningeal signs Resp Effort & Inspection: normal respiratory effort Auscultation: clear to auscultation bilaterally Cardio Rate: regular rate Rhythm: regular rhythm Heart sounds: S1 normal heart sound present and S2 normal heart sound present GI Other: The abdomen is soft. Some minimal epigastric tenderness without rebound or guarding. Skin Other: The skin is dry and unremarkable General skin exam: no rashes or lesions noted Neuro General: patient oriented x3, gait normal, tone normal, moves all extremities, no meningeal signs, no focal motor deficits and CN's II-XI intact bilaterally Extrem Other: There is no calf swelling or tenderness. No asymmetry. No peripheral edema. Medications Administered Discontinued Medications Generic Name Dose Route Start Last Admin Trade Name Freq PRN Reason Stop Dose Admin Diphenhydramine HCl 25 mg 10/24/24 01:38 10/24/24 01:45 Diphenhydramine Hcl 50 Mg/Ml Vial IVPUSH 10/24/24 01:39 25 mg ONCE ONE Administration Famotidine 20 mg 10/24/24 01:38 10/24/24 01:45 Famotidine/Pf 20 Mg/2 Ml Vial IVPUSH 10/24/24 01:39 20 mg ONCE ONE Administration Acetaminophen 1,000 mg in 100 mls @ 400 mls/hr 10/24/24 01:38 10/24/24 02:00 Ofirmev IV 10/24/24 01:52 Infused ONCE ONE Infusion Sodium Chloride 1,000 mls @ 999 mls/hr 10/24/24 01:45 10/24/24 02:46 Ns IV 10/24/24 02:45 Infused .Q1H1M JORY Infusion Lactated Ringer's 1,000 mls @ 999 mls/hr 10/24/24 05:15 10/24/24 06:23 Lr IV 10/24/24 06:15 Infused .Q1H1M JORY Infusion Metoclopramide HCl 10 mg 10/24/24 01:38 10/24/24 01:45 Metoclopramide Hcl 10 Mg/2 Ml Vial IVPUSH 10/24/24 01:39 10 mg ONCE ONE Administration Medical Decision Making Medical Decision Making [facility] Narrative: The patient is a 63-year-old female with significant hypertension and also history of vascular disease and diabetes who presents with a headache, epigastric pain, and high blood pressure readings. She has presented in his similar fashion in the past and she says that her headache and her epigastric pain or similar to pains for which she has come to the emergency room in the past. Clinically the patient looked mildly uncomfortable and somewhat photophobic. She did not appear toxic or septic. She has a supple neck. My suspicion for a stroke or a subarachnoid hemorrhage or meningitis was very low. I did not feel there was an indication for neuroimaging or a spinal tap. Similarly my suspicion for a significant intra-abdominal process was also very low. The patient had a CBC that showed a normal white count of 8.2. Her differential was normal. Her metabolic panel was unremarkable. Values are similar to previous values. The patient was treated symptomatically with IV metoclopramide, diphenhydramine, acetaminophen, and famotidine. The patient was also given IV fluids. She was observed for several hours during the overnight shift. In the morning she seemed to feel better and I felt she was appropriate for discharge. She was advised to resume her usual medications and to follow up with her PCP. Return if worse. Lab Data 10/24/24 00:49 10/24/24 00:49 Labs: Lab Results 10/24/24 Range/Units 00:49 WBC 8.2 (4.8-10.8) X10*3/uL RBC 3.57 L (4.20-5.50) X10*6/uL Hgb 10.5 L (12.0-16.0) g/dl Hct 30.8 L (37.0-47.0) % MCV 86.3 (80.0-98.0) fL MCH 29.4 (27.0-33.0) pg MCHC 34.1 (31.0-35.0) g/dl RDW 14.3 (11.0-16.0) % Plt Count 287 (160-400) X10*3/uL MPV 9.3 L (9.4-12.3) fL Immature Gran % (Auto) 0.4 (0.0-0.4) % Neut % (Auto) 67.2 (45-73) % Lymph % (Auto) 22.4 (20-40) % Chester % (Auto) 6.0 (2-11) % Eos % (Auto) 3.5 (0-4) % Baso % (Auto) 0.5 (0-2) % Lymph # (Auto) 1.8 (1.2-4.9) X10*3/uL Chester # (Auto) 0.5 (0.1-1.2) X10*3/uL Eos # (Auto) 0.3 (0.0-0.4) X10*3/uL Baso # (Auto) 0.0 (0.0-0.2) X10*3/uL Abs Immat Gran (auto) 0.03 (0.00-0.03) X10*3/uL Absolute Neuts (auto) 5.5 (2.0-8.3) x10*3/uL Absolute Nucleated RBC 0.000 (0.0-0.012) X10*3/uL Nucleated RBC % (auto) 0.0 (0.0-0.2) /100WBC Sodium 141 (135-145) mmol/L Potassium 4.3 (3.3-5.1) mmol/L Chloride 108 (96-108) mmol/L Carbon Dioxide 25 (22-29) mmol/L Anion Gap 12 (12-20) BUN 25 H (9-16) mg/dL Creatinine 1.12 (0.5-1.4) mg/dL Estim Creat Clear Calc 47.8 Estimated GFR 49 Random Glucose 238 H (60-115) mg/dL Calcium 8.2 L (8.4-10.2) mg/dL Total Bilirubin 0.2 (0.0-1.0) mg/dL Direct Bilirubin < 0.2 (0.0-0.5) mg/dL AST 9 (5-31) U/L ALT 6 (0-31) U/L Alkaline Phosphatase 94 (39-117) U/L Total Protein 5.6 L (6.5-8.0) g/dL Albumin 3.0 L (3.5-5.0) g/dL Lipase 13 (8-78) U/L Discharge Plan Discharge Clinical Impression: Headache, Epigastric abdominal pain Patient Disposition: Home, Self-Care Additional Instructions: Your testing in the emergency room today has been reassuring. Please resume all of your normal medications including your blood pressure medications. Please follow up soon with your regular doctor to discuss this episode further. Return to the emergency room if significantly worse. Prescriptions: No Action pioglitazone 15 mg tablet 15 mg PO DAILY 30 Days Qty: 30 11RF acetaminophen 650 mg tablet extended release 650 mg PO Q8H omeprazole 20 mg capsule,delayed release(DR/EC) 40 mg PO BIDWM@0800,1700 albuterol sulfate [Ventolin HFA] 90 mcg/actuation HFA aerosol inhaler 2 puff INHALATION Q6H PRN (Reason: Shortness Of Breath Or Wheezing) lisinopril 40 mg tablet 40 mg PO DAILY fluticasone propionate 50 mcg/actuation spray,suspension 2 spray intranasal DAILY loratadine 10 mg tablet 10 mg PO DAILY nicotine (polacrilex) 2 mg lozenge 2 mg PO Q1-2H PRN (Reason: Nicotine Cravings) Asmanex HFA 100 mcg/actuation HFA aerosol inhaler 2 puff INHALATION BID Ozempic 0.25 mg or 0.5 mg (2 mg/3 mL) pen injector 0.5 mg subcut FR isosorbide mononitrate 30 mg tablet extended release 24 hr 30 mg PO DAILY ferrous sulfate 325 mg (65 mg iron) tablet 325 mg PO BID PRN (Reason: Iron Levels) Rx Instructions: Pt takes as needed due to this med making the pt constipated. Eliquis 5 mg tablet 5 mg PO BID Qty: 74 0RF Rx Instructions: Take 10 mg twice daily for 7 days then 5 mg twice daily telmisartan 80 mg tablet 80 mg PO DAILY clopidogrel 75 mg tablet 75 mg PO DAILY hydralazine 25 mg Tablet 25 mg PO TID 30 Days Qty: 90 0RF Protocol: Hold for SBP< HOLD for SBP < : 90 nicotine 7 mg/24 hr Patch 24 Hour 7 mg transdermal DAILY 30 Days Qty: 30 0RF multivitamin Tablet 1 tab PO DAILY aspirin [Adult Low Dose Aspirin] 81 mg tablet,delayed release (DR/EC) 81 mg PO DAILY escitalopram oxalate [Lexapro] 20 mg tablet 20 mg PO DAILY@1800 mirtazapine 45 mg tablet 45 mg PO BEDTIME atorvastatin [Lipitor] 80 mg tablet 80 mg PO BEDTIME Tresiba FlexTouch U-100 100 unit/mL (3 mL) insulin pen 14 unit subcut DAILY (DME) FreeStyle Lite Strips Strip See Rx Instructions Not Applicable QID Qty: 10 Rx Instructions: As directed ezetimibe 10 mg tablet 10 mg PO DAILY gabapentin 600 mg tablet 600 mg PO BID amitriptyline 50 mg tablet 50 mg PO BEDTIME Synjardy 12.5-1,000 mg tablet 1 tab PO BID hydrochlorothiazide 50 mg tablet 50 mg PO DAILY carvedilol [Coreg] 25 mg tablet 25 mg PO BID Qty: 120 4RF Rx Instructions: must administer with a meal/food nifedipine 90 mg tablet extended release 24hr 90 mg PO BEDTIME Qty: 90 4RF docusate sodium 100 mg capsule 100 mg PO BID Referrals: Radha Jamison DO [Physician, Internal Medicine] Interventions: ED Discharge Assessment Last Done: 10/24/24 06:49 Discharge Date/Time: 10/24/24 06:50 Print Language: Beninese
--- OUTSIDE RECORDS SUMMARY | 2024-10-24 00:56 | XMS_ITS | Encounter Summary ---
Author Organization [employer] Address [address] [facility] [address] [place] [address] Care Team Providers Care Motor Power Connector Name Role Phone Radha Jamison DO Primary Care Provider [phone] Nelia Sullivan PharmD Unavailable [phone] Reason for Visit * Reason Comments Med Refill Encounter Details Date Type Department Care Team ([facility] Contact Info) Description 12/28/2023 Refill [facility] MED[facility]INE [address] [place] [address] Radha Jamison DO [address] [place] [address] Chronic bilateral low back pain, unspecified whether sciatica present Social History Tobacco Use Types Packs/Day Years Used Date Smoking Tobacco: Every Day Cigarettes 1 45.2 Started: 08/31/1979 Passive Smoke Exposure: Current Smokeless [...] the past 12 months, has t he [employer], gas, oil or water [employer] threatened to shut off services in your [...] [facility] [address] [place] [address] 11/05/2024 11:00 AM EDT Medication Management [facility] MEDICINE [address] [place] [phone] Nelia Sullivan, PharmD [address] [place] [address] 11/11/2024 1:00 PM EDT Office Visit [facility] [address] [place] [address] Vickie Penaloza MD [address] [place] [address] documented as of this encounter Goals Goal [...] as of this encounter Care Teams Motor Power Connector Relationship Specialty Start Date End Date Radha Jamison DO [address] [place] [address] PCP - General Family Medicine 01/26/12 Nelia Sullivan PharmD [address] [place] [address] Pharmacist Internal Medicine 08/31/23 Laurel Monterroso Engineering And Operations DirectorFreight Service Inspector 10/27/22 Saige Aguilar 09/26/23 documented as of this encounter
--- OUTSIDE RECORDS SUMMARY | 2024-10-24 00:56 | XMS_ITS | Encounter Summary ---
Author Organization [employer] Address [address] [facility] [address] [place] [address] Care Team Providers Care Cow Tender Name Role Phone Radha Jamison DO Primary Care Provider [phone] Nelia Sullivan PharmD Unavailable [phone] Reason for Visit * Reason Comments Med Refill Encounter Details Date Type Department Care Team ([facility] Contact Info) Description 10/21/2024 Refill [facility]INE [address] [place] [address] Radha Jamison DO [address] [place] [address] Mild persistent asthma without complication Social History [...] the past 12 months, has t he [employer], [employer], oil or water [employer] threatened to shut off services in your [...] 11/05/2024 10:00 AM EDT Office Visit [facility] [address] [place] [address] 11/05/2024 11:00 AM EDT Medication Management [facility] [address] [place] [phone] Nelia Sullivan PharmD [address] [place] [address] 11/11/2024 1:00 PM EDT Office Visit [facility] [address] [place] [address] Vickie Penaloza MD [address] [place] [address] documented as of this encounter Goals Goal [...] documented as of this encounter Care Teams Cow Tender Relationship Specialty Start Date End Date Radha Jamison DO [address] [place] [address] PCP - General Family Medicine 01/26/12 Nelia Sullivan PharmD [address] [place] [address] Pharmacist Internal Medicine 08/31/23 Laurel Monterroso Triage Register NurseNon Linear Editor 10/27/22 Saige Aguilar 09/26/23 documented as of this encounter
--- OUTSIDE RECORDS SUMMARY | 2024-10-24 00:56 | XMS_ITS | Encounter Summary ---
Author Organization [employer] Address [address] [facility] [address] [place] [address] Care Team Providers Care Bit Welder Name Role Phone Radha Jamison DO Primary Care Provider [phone] Nelia Sullivan PharmD Unavailable [phone] Reason for Visit * Reason Comments Med Refill Encounter Details Date Type Department Care Team ([facility] st Contact Info) Description 02/29/2024 Refill [facility] MEDICINE [address] [place] [address] Radha Jamison DO [address] [place] [address] Chronic bilateral low back pain, unspecified whether [...] the past 12 months, has t he [employer], gas, oil or water company threatened to [...] until seen by PCP or seen by FIRER BISQUE KILN. Scheduled FIRER BISQUE KILN 03/05/24. documented in this encounter Plan of Treatment Upcoming Encounters Date Type Department Care Team (Late [facility] Contact Info) Description 11/05/2024 10:00 AM EDT Office Visit [facility] OPTOMETRY [address] [place], [place] [phone] 11/05/2024 11:00 AM EDT Medication Management [facility] MEDICINE [address] [place] [address] Nelia Sullivan, PharmD [address] [place] [address] 11/11/2024 1:00 PM EDT Office Visit [facility] MEDICINE [address] [place] [address] Vickie Penaloza MD [address] [place] [address] documented as of this encounter Goals Goal [...] documented as of this encounter Care Teams Bit Welder Relationship Specialty Start Date End Date Radha Jamison DO [address] [place] [address] PCP - General Family Medicine 01/26/12 Puia, Nelia, PharmD [address] [place] [address] Pharmacist Internal Medicine 08/31/23 Laurel Monterroso JigsawyerCorn Chip Maker 10/27/22 Saige Aguilar 09/26/23 documented as of this encounter
--- OUTSIDE RECORDS SUMMARY | 2024-10-24 00:56 | XMS_ITS | Encounter Summary ---
Author Organization [employer] Address [address] [facility] [address] [place] [address] Care Team Providers Care Cyberathlete Name Role Phone Radha Jamison DO Primary Care Provider [phone] Nelia Sullivan PharmD Unavailable [phone] Reason for Visit * Reason Comments Med Refill Encounter Details Date Type Department Care Team ([facility] Contact Info) Description 03/05/2024 Telephone [facility] MEDICINE [address] [place], [place] [phone] Radha Jamison DO [address] [place] [address] Med Refill Social History Tobacco Use Types [...] Description 11/05/2024 10:00 AM EDT Office Visit [facility] OPT[facility] [address] [place] [address] 11/05/2024 11:00 AM EDT Medication Management [facility] [address] [place] [phone] Nelia Sullivan PharmD [address] [place] [address] 11/11/2024 1:00 PM EDT Office Visit [facility] MED[facility] [address] [place] [phone] Vickie Penaloza MD [address] [place] [address] documented as of this encounter Goals Goal [...] documented as of this encounter Care Teams Cyberathlete Relationship Specialty Start Date End Date Radha Jamison DO [address] [place] [address] PCP - General Family Medicine 01/26/12 Nelia Sullivan PharmD [address] [place] [address] Pharmacist Internal Medicine 08/31/23 Laurel Monterroso Anti Air Warfare Operations OfficerWrapper And Preserver 10/27/22 Saige Aguilar 09/26/23 documented as of this encounter
--- OUTSIDE RECORDS SUMMARY | 2024-10-24 00:56 | XMS_ITS | Encounter Summary ---
Author Organization [employer] Address [address] [facility] [address] [place] [address] Care Team Providers Care Collar Packer Name Role Phone Radha Jamison DO Primary Care Provider [phone] Nelia Sullivan PharmD Unavailable [phone] Reason for Visit * Reason Comments Med Refill Encounter Details Date Type Department Care Team ([facility] st Contact Info) Description 03/19/2024 Refill [facility] MEDICINE [address] [place] [address] Radha Jamison DO [address] [place] [address] Chronic bilateral low back pain, unspecified whether [...] the past 12 months, has t he [employer], gas, oil or water [employer] threatened to shut off services in your [...] Description 11/05/2024 10:00 AM EDT Office Visit [facility] OPT[facility] [address] [place] [address] 11/05/2024 11:00 AM EDT Medication Management [facility] MED[facility]INE [address] [place] [phone] Nelia Sullivan, PharmD [address] [place] [address] 11/11/2024 1:00 PM EDT Office Visit [facility] MED[facility]INE [address] [place] [address] Vickie Penaloza MD [address] [place] [address] documented as of this encounter Goals Goal [...] documented as of this encounter Care Teams Collar Packer Relationship Specialty Start Date End Date Radha Jamison DO [address] [place] [address] PCP - General Family Medicine 01/26/12 Nelia Sullivan PharmD [address] [place] [address] Pharmacist Internal Medicine 08/31/23 Laurel Monterroso Line Up Machine OperatorRetail Pharmacy Technician 10/27/22 Saige Aguilar 09/26/23 documented as of this encounter
--- OUTSIDE RECORDS SUMMARY | 2024-10-24 00:56 | XMS_ITS | Encounter Summary ---
Author Organization [employer] Address [address] [facility] 7t [place] [address] Care Team Providers Care Customer Solutions Representative Name Role Phone Radha Jamison DO Primary Care Provider +1- [phone] Nelia Sullivan PharmD Unavailable [phone] Reason for Visit * Reason Onset Date Comments Nurse Triage 10/07/2024 Encounter Details Date Type Department Care Team ([facility] st Contact Info) Description 10/07/2024 Telephone [facility] MEDICINE [address] [place] [address] Radha Jamison DO [address] [place] [address] Nurse Triage Social History Tobacco Use Types [...] the past 12 months, has t he [employer], gas, oil or water [employer] threatened to shut off services in your [...] 10/07/2024 12:10 PM EDT Triage call with [facility] turf sales person [place] [id number] Pt reports swelling of bilateral lower extremities [...] to come to the [facility] at [facility] to be seen by provider open till [...] caller accepted this outcome. Contact pt at [phone] documented in this encounter Plan of Treatment Upcoming Encounters Date Type Department Care Team (Late st Contact Info) Description 11/05/2024 10:00 AM EDT Office Visit [facility] OPTOMETRY [address] [place] [address] 11/05/2024 11:00 AM EDT Medication Management [facility] MEDICINE [address] [place] [address] Puia, Nelia, PharmD [address] [place] [address] 11/11/2024 1:00 PM EDT Office Visit [facility] MEDICINE 230 [place] [address] Vickie Penaloza MD [address] [place] [address] documented as of this encounter Goals Goal [...] documented as of this encounter Care Teams Customer Solutions Representative Relationship Specialty Start Date End Date Radha Jamison DO [address] [place] [address] PCP - General Family Medicine 01/26/12 Nelia Sullivan PharmD [address] [place] [address] Pharmacist Internal Medicine 08/31/23 Laurel Monterroso Card LacerRegional Sales Leader 10/27/22 Saige Aguilar 09/26/23 documented as of this encounter
--- OUTSIDE RECORDS SUMMARY | 2024-10-24 00:57 | XMS_ITS | Encounter Summary ---
Author Organization [employer] Address [address] [facility] 7t [place] [address] Care Team Providers Care Painting And Coating Worker Name Role Phone Radha Jamison DO Primary Care Provider [phone] Abdias Murillo PharmD Unavailable Unavail able Nelia Sullivan PharmD Unavailable [phone] Reason for Visit * Reason Comments Med Refill Encounter Details Date Type Department Care Team ([facility] Contact Info) Description 10/25/2022 Refill [facility] MEDICINE [address] [place] [address] Radha Jamison DO 230 [place] [address] Chronic bilateral low back pain, unspecified whether [...] 10:00 AM EDT Office Visit [facility] OPTOMETRY [address] [place], [place] [id number] 11/05/2024 11:00 AM EDT Medication Management [facility] MEDICINE 230 [facility] [place] [address] Nelia Sullivan PharmD [facility] [place] [address] 11/11/2024 1:00 PM EDT Office Visit [facility] MEDICINE Preet [facility] [place] [address] Vickie Penaloza MD 230 [email or web address] [place] [address] documented as of this encounter Goals Goal [...] documented as of this encounter Care Teams Painting And Coating Worker Relationship Specialty Start Date End Date Radha Jamison DO [facility] [place] [address] PCP - General Family Medicine 01/26/12 Abdias Murillo, Camron [address] [place] [address] Pharmacist Internal Medicine 03/21/22 08/30/23 Nelia Sullivan PharmD [address] [place], [place] [address]mel[address] [place] [address] Pharmacist Internal Medicine 08/31/23 Laurel Monterroso Jet PilotBoiler Out 10/27/22 Saige Aguilar 09/26/23 documented as of this encounter
--- OUTSIDE RECORDS SUMMARY | 2024-10-24 00:57 | XMS_ITS | Encounter Summary ---
Author Organization [employer] Address [address] [facility] 7t [place] [address] Care Team Providers Care Grounds Supervisor Name Role Phone Radha Jamison DO Primary Care Provider +1- [phone] Nelia Sullivan PharmD Unavailable [phone] Reason for Visit * Reason Comments Med Refill Encounter Details Date Type Department Care Team ([facility] Contact Info) Description 01/06/2024 Refill [facility] MEDICINE 230 [place] [address] Radha Jamison DO 230 [place] [address] Depression, unspecified depression type; Essential (primary) hypertension [...] the past 12 months, has t he [employer], gas, oil or water [employer] threatened to shut off services in your [...] Visit [facility] OPTOMETRY [address] [place] [address] 11/05/2024 11:00 AM EDT Medication Management [facility] MEDICINE [address] [place] [address] Nelia Sullivan, PharmD 230 [place] [address] 11/11/2024 1:00 PM EDT Office Visit [facility] MEDICINE 230 [place] [address] Vickie Penaloza MD 230 [place] [address] documented as of this encounter Goals Goal [...] documented as of this encounter Care Teams Grounds Supervisor Relationship Specialty Start Date End Date Radha Jamison DO 230 [place] [address] PCP - General Family Medicine 01/26/12 Nelia Sullivan PharmD 230 [place] [address] Pharmacist Internal Medicine 08/31/23 Laurel Monterroso Mechanical Systems DesignerEnergy Director 10/27/22 Saige Aguilar 09/26/23 documented as of this encounter
--- OUTSIDE RECORDS SUMMARY | 2024-10-24 00:57 | XMS_ITS | Encounter Summary ---
Author Organization [employer] Address [address] [facility] 7t [place] [address] Care Team Providers Care Director Of Enterprise Architecture Name Role Phone Radha Jamison DO Primary Care Provider [phone]- [phone] Abdias Murillo PharmD Unavailable Unavail able Nelia Sullivan PharmD Unavailable [phone] Reason for Visit * Reason Onset Date Comments uber 05/08/2023 Encounter Details Date Type Department Care Team ([facility] st Contact Info) Description 05/08/2023 Telephone [facility] MEDICINE 230 [place] [address] Radha Jamison DO 230 [place] [address] uber Social History Tobacco Use Types Packs/Day [...] / denial letter via mail. PT-1 Request [id number] Pending . [facility] [address] [place] [address] Computer Operations Manager noticed pt has pending referrals. Computer Operations Manager has added a note to each to add PT1 for referred tooffice. * Telephone Encounter - Ginna Stephen RN - 05/10/2023 9:31 AM EDT Uber booked for tomorrow 8:45am. TC placed to pt. And made pt. Aware. Pt. Also reports PT-1 expiredand would like it renewed for next time, to [facility] * Telephone Encounter - Ciera Carson - 05/10/2023 9:07 AM EDT Tc from pt calling in regards to message above. Pt also received a call, mortgage underwriter does not see any documentation. Please contact pt at [phone] * Telephone Encounter - Ciera Carson - 05/08/2023 12:54 PM EDT Tc from pt states will need uber transportation for 05/10 with provider. Please contact pt at [phone] documented in this encounter Plan of Treatment Upcoming Encounters Date Type Department Care Team (Late st Contact Info) Description 11/05/2024 10:00 AM EDT Office Visit [facility] OPTOMETRY [address] [place] [address] 11/05/2024 11:00 AM EDT Medication Management [facility] MEDICINE 230 [place] [address] Nelia Sullivan PharmD 230 [place] [address] 11/11/2024 1:00 PM EDT Office Visit [facility] MEDICINE 230 [place] [address] Vickie Penaloza MD 230 [place] [address] documented as of this encounter Goals Goal [...] of this encounter Care Teams Director Of Enterprise Architecture Relationship Specialty Start Date End Date Radha Jamison DO [address] [place] [address] PCP - General Family Medicine 01/26/12 Abdias Murillo, PharmD [address] [place] [address] Pharmacist Internal Medicine 03/21/22 08/30/23 Nelia Sullivan PharmD [address] [place] [address] Pharmacist Internal Medicine 08/31/23 Laurel Monterroso Coordinate Measuring Machine TechnicianKindergarten Teacher Assistant 10/27/22 Saige Aguilar 09/26/23 documented as of this encounter
--- OUTSIDE RECORDS SUMMARY | 2024-10-24 00:57 | XMS_ITS | Encounter Summary ---
Author Organization [employer] Address 75 [facility] 7t [place] [address] Care Team Providers Care Aerial Photogrammetrist Name Role Phone Radha Jamison DO Primary Care Provider [phone]- [phone] Nelia Sullivan PharmD Unavailable [phone] Reason for Visit * Reason Comments Med Refill Encounter Details Date Type Department Care Team ([facility] st Contact Info) Description 05/17/2024 Refill [facility] MEDICINE 230 [place] [address] Radha Jamison DO 230 [place] [address] Chronic bilateral low back pain, unspecified whether [...] the past 12 months, has t he [employer], gas, oil or water [employer] threatened to shut off services in your [...] Description 11/05/2024 10:00 AM EDT Office Visit [facility] OPTOMETRY [address] [place] [address] 11/05/2024 11:00 AM EDT Medication Management [facility] MEDICINE [address] [place] [address] Nelia Sullivan, PharmD [address] [place] [address] 11/11/2024 1:00 PM EDT Office Visit [facility] MEDICINE [address] [place] [address] Vickie Penaloza MD [address] [place] [address] documented as of this encounter Goals Goal [...] documented as of this encounter Care Teams Aerial Photogrammetrist Relationship Specialty Start Date End Date Radha Jamison DO [address] [place] [address] PCP - General Family Medicine 01/26/12 Nelia Sullivan PharmD [address] [place] [address] Pharmacist Internal Medicine 08/31/23 Laurel Monterroso Cone Machine FeederDirector Of Accounts Receivable 10/27/22 Saige Aguilar 09/26/23 documented as of this encounter
--- OUTSIDE RECORDS SUMMARY | 2024-10-24 00:57 | XMS_ITS | Encounter Summary ---
Author Organization [employer] Address 75 [facility] 7t [place] [address] Care Team Providers Care Print Shop Assistant Name Role Phone Radha Jamison DO Primary Care Provider [phone]- [phone] Abdias Murillo PharmD Unavailable Unavail able Nelia Sullivan PharmD Unavailable [phone] Reason for Visit * Reason Comments Med Refill Encounter Details Date Type Department Care Team (Late st Contact Info) Description 12/22/[address] [facility] MEDICINE 230 [place] [address] Radha Jamison DO 230 [place] [address] Chronic bilateral low back pain, unspecified whether [...] AM EDT Office Visit [facility] OPTOMETRY 267 [place] [address] 11/05/2024 11:00 AM EDT Medication Management [facility] MEDICINE [address] [place] [address] Nelia Sullivan PharmD [address] [place] [address] 11/11/2024 1:00 PM EDT Office Visit [facility] MEDICINE [address] [place] [address] Vickie Penaloza MD [address] [place] [address] documented as of this encounter Goals Goal [...] documented as of this encounter Care Teams Print Shop Assistant Relationship Specialty Start Date End Date Radha Jamison DO [address] [place] [address] PCP - General Family Medicine 01/26/12 Abdias Murillo, KeithD [address] [facility] [place] [address] Pharmacist Internal Medicine 03/21/22 08/30/23 Nelia Sullivan PharmD 230 [place] [address] Pharmacist Internal Medicine 08/31/23 Laurel Monterroso Contour Path Tape Mill OperatorBase Engineer 10/27/22 Saige Aguilar 09/26/23 documented as of this encounter
--- OUTSIDE RECORDS SUMMARY | 2024-10-24 00:57 | XMS_ITS | Encounter Summary ---
Author Organization [employer] Address 75 [facility] 7t [place] [address] Care Team Providers Care Resource Economist Name Role Phone Radha Jamison DO Primary Care Provider [phone]- [phone] Abdias Murillo PharmD Unavailable Unavail able Nelia Sullivan PharmD Unavailable [phone] Reason for Visit * Reason Comments Med Refill Encounter Details Date Type Department Care Team (Late st Contact Info) Description 11/08/2022 Refill [facility] MEDICINE 230 [place] [address] Radha Jamison DO 230 [place] [address] Social History Tobacco Use Types Packs/Day Years [...] 10:00 AM EDT Office Visit [facility] OPTOMETRY [address] [place] [address] 11/05/2024 11:00 AM EDT Medication Management [facility] MEDICINE [address] [place] [address] Nelia Sullivan PharmD 230 [place] [address] 11/11/2024 1:00 PM EDT Office Visit [facility] MEDICINE 230 [place] [address] Vickie Penaloza MD 230 [place] [address] documented as of this encounter Goals Goal [...] documented as of this encounter Care Teams Resource Economist Relationship Specialty Start Date End Date Radha Jamison DO 230 [place] [address] PCP - General Family Medicine 01/26/12 Abdias Murillo, PharmD [address] [place] [address] Pharmacist Internal Medicine 03/21/22 08/30/23 Nelia Sullivan PharmD [address] [place] [address] Pharmacist Internal Medicine 08/31/23 Laurel Monterroso Director Of DevelopmentPolice Academy Program Coordinator 10/27/22 Saige Aguilar 09/26/23 documented as of this encounter
--- OUTSIDE RECORDS SUMMARY | 2024-10-24 00:57 | XMS_ITS | Encounter Summary ---
Author Organization [employer] Address [address] [facility] 7t [place] [address] Care Team Providers Care Pharmacy Aide Name Role Phone Radha Jamison DO Primary Care Provider [phone]- [phone] Abdias Murillo PharmD Unavailable Unavail able Nelia Sullivan PharmD Unavailable [phone] Reason for Visit * Reason Comments Med Refill Encounter Details Date Type Department Care Team (Late st Contact Info) Description 06/06/2023 Refill [facility] 230 [place] [address] Radha Jamison DO 230 [place] [address] Chronic bilateral low back pain, unspecified whether [...] [facility] [address] [place] [address] 11/05/2024 11:00 AM EDT Medication Management [facility] MEDICINE 230 [place] [address] Nelia Sullivan PharmD 230 [place] [address] 11/11/2024 1:00 PM EDT Office Visit [facility] MEDICINE [address] [place] [address] Vickie Penaloza MD 230 [place] [address] documented as of this encounter Goals Goal [...] as of this encounter Care Teams Pharmacy Aide Relationship Specialty Start Date End Date Radha Jamison DO 230 [place] [address] PCP - General Family Medicine 01/26/12 Abdias Murillo, KeithD 230 [place] [address] Pharmacist Internal Medicine 03/21/22 08/30/23 Nelia Sullivan, Camron 230 [place] [address] Pharmacist Internal Medicine 08/31/23 Laurel Monterroso Bench Patternmaker MetalCaustic Purification Operator 10/27/22 Saige Aguilar 09/26/23 documented as of this encounter
--- OUTSIDE RECORDS SUMMARY | 2024-10-24 00:57 | XMS_ITS | Encounter Summary ---
Author Organization [employer] Address 75 [facility] 7t [place] [address] Care Team Providers Care Treasury Consultant Name Role Phone Radha Jamison DO Primary Care Provider [phone]- [phone] Abdias Murillo PharmD Unavailable Unavail able Nelia Sullivan PharmD Unavailable [phone] Reason for Visit * Reason Comments Med Refill Encounter Details Date Type Department Care Team (Late st Contact Info) Description 12/21/2022 Refill [facility] MEDICINE 230 [place] [address] Radha Jamison DO 230 [place] [address] Chronic bilateral low back pain, unspecified whether [...] 11/05/2024 10:00 AM EDT Office Visit [facility] OPTOMETRY [address] [place] [address] 11/05/2024 11:00 AM EDT Medication Management [facility] MEDICINE 230 [place] [address] Nelia Sullivan PharmD [address] [place] [address] 11/11/2024 1:00 PM EDT Office Visit [facility] MEDICINE [address] [place] [address] Vickie Penaloza MD 230 [place] [address] documented as of this encounter Goals Goal [...] documented as of this encounter Care Teams Treasury Consultant Relationship Specialty Start Date End Date Radha Jamison DO 230 [place] [address] PCP - General Family Medicine 01/26/12 Abdias Murillo, KeithD 230 [facility] [place] [address] Pharmacist Internal Medicine 03/21/22 08/30/23 Nelia Sullivan PharmD 230 [place] [address] Pharmacist Internal Medicine 08/31/23 Laurel Monterroso Mold MakerCuffing Machine Operator 10/27/22 Saige Aguilar 09/26/23 documented as of this encounter
--- OUTSIDE RECORDS SUMMARY | 2024-10-24 00:57 | XMS_ITS | Encounter Summary ---
Author Organization [employer] Address 75 [facility] 7t [place] [address] Care Team Providers Care Blow Down Operator Name Role Phone Radha Jamison DO Primary Care Provider [phone] Abdias Murillo PharmD Unavailable Unavail able Nelia Sullivan PharmD Unavailable [phone] Reason for Visit * Reason Comments Med Refill Encounter Details Date Type Department Care Team (Late st Contact Info) Description 04/14/2023 Refill [facility] MEDICINE [address] [place], [place] [phone] Radha Jamison DO 230 [place], [place] [phone] Type 2 diabetes mellitus with hyperglycemia, with long-term current use of insulin ([facility]) Social History Tobacco Use Types [...] Description 11/05/2024 10:00 AM EDT Office Visit [facility] OPTOMETRY [address] [place] [address] 11/05/2024 11:00 AM EDT Medication Management [facility] MEDICINE [address] [place] [address] Nelia Sullivan PharmD 230 [place] [address] 11/11/2024 1:00 PM EDT Office Visit [facility] MEDICINE [address] [place] [address] Vickie Penaloza MD 230 [place] [address] documented as of this encounter Goals Goal Patient Goal Type Associated Problems Recent Progress Patient-Stated? Author Hemoglobin A1c < 7 Result Component 10.1( 4:57 PM EDT) No Abdias Murillo, PharmD documented as of this encounter Visit Diagnoses Diagnosis Type 2 diabetes mellitus with hyperglycemia, with long-term current use of insulin ([facility]) documented in this encounter Additional Health Concerns Assessment Noted Time PHQ-9 Depression Total Score: 4 11/09/19 23 11:27 AM EDT documented as of this encounter Care Teams Blow Down Operator Relationship Specialty Start Date End Date Radha Jamison DO 230 [place] [address] PCP - General Family Medicine 01/26/12 Abdias Murillo PharmD 230 [place] [address] Pharmacist Internal Medicine 03/21/22 08/30/23 Nelia Sullivan PharmD [address] [place] [address] Pharmacist Internal Medicine 08/31/23 Laurel Monterroso Putty Tinter MakerCentral Processing Technician 10/27/22 Saige Aguilar 09/26/23 documented as of this encounter
--- OUTSIDE RECORDS SUMMARY | 2024-10-24 00:57 | XMS_ITS | Encounter Summary ---
Author Organization [employer] Address 75 [facility] 7t [place] [address] Care Team Providers Care Timber Framer Helper Name Role Phone Radha Jamison DO Primary Care Provider +1- [phone] Abdias Murillo PharmD Unavailable Unavail able Nelia Sullivan PharmD Unavailable [phone] Reason for Visit * Reason Comments Med Refill Encounter Details Date Type Department Care Team (Late st Contact Info) Description 08/30/2023 Refill [facility] MEDICINE 230 [place] [address] Radha Jamison DO 230 [place] [address] Chronic bilateral low back pain, unspecified whether [...] Description 11/05/2024 10:00 AM EDT Office Visit [facility] OPTOMETRY [address] [place] [address] 11/05/2024 11:00 AM EDT Medication Management [facility] MEDICINE [address] [place] [address] Nelia Sullivan, PharmD 230 [place] [address] 11/11/2024 1:00 PM EDT Office Visit [facility] MEDICINE [address] [place] [address] Vickie Penaloza MD 230 [place] [address] documented as of this encounter Goals Goal [...] documented as of this encounter Care Teams Timber Framer Helper Relationship Specialty Start Date End Date Radha Jamison DO [address] [place] [address] PCP - General Family Medicine 01/26/12 Abdias Murillo PharmD [address] [place] [address] Pharmacist Internal Medicine 03/21/22 08/30/23 Nelia Sullivan PharmD [address] [place] [address] Pharmacist Internal Medicine 08/31/23 Laurel Monterroso Microphone Boom OperatorTip Cementer 10/27/22 Saige Aguilar 09/26/23 documented as of this encounter
--- OUTSIDE RECORDS SUMMARY | 2024-10-24 00:57 | XMS_ITS | Encounter Summary ---
Author Organization [employer] Address 75 [facility] 7t [place] [address] Care Team Providers Care Identification And Records Commander Name Role Phone Radha Jamison DO Primary Care Provider Abdias Murillo PharmD Unavailable Unavail able Nelia Sullivan PharmD Unavailable Reason for Visit * Reason Onset Date Comments Durable Medical Equipment 09/08/2022 Encounter Details Date Type Department Care Team (Late st Contact Info) Description 09/08/2022 Telephone [facility] MEDICINE 230 [place] [address] Radha Jamison DO 230 [place] [address] Durable Medical Equipment Social History Tobacco Use [...] is not working. Please contact pt at [phone] documented in this encounter Plan of Treatment Upcoming Encounters Date Type Department Care Team (Late st Contact Info) Description 11/05/2024 10:00 AM EDT Office Visit [facility] OPTOMETRY [address] [place] [address] 11/05/2024 11:00 AM EDT Medication Management [facility] MEDICINE 230 [place] [address] Nelia Sullivan PharmD 230 [place] [address] 11/11/2024 1:00 PM EDT Office Visit [facility] MEDICINE 230 [place] [address] Vickie Penaloza MD [address] [place] [address] documented as of this encounter Goals Goal [...] documented as of this encounter Care Teams Identification And Records Commander Relationship Specialty Start Date End Date Radha Jamison DO [address] [place] [address] PCP - General Family Medicine 01/26/12 Abdias Murillo, PharmD [address] [place] [address] Pharmacist Internal Medicine 03/21/22 08/30/23 Nelia Sullivan, KeithD [address] [place] [address] Pharmacist Internal Medicine 08/31/23 Laurel Monterroso Bus AideAirport Ramp Attendant 10/27/22 Saige Aguilar 09/26/23 documented as of this encounter
--- OUTSIDE RECORDS SUMMARY | 2024-10-24 00:57 | XMS_ITS | Encounter Summary ---
Author Organization [employer] Address [address] [facility] [address] [place] [address] Care Team Providers Care Division Traffic Superintendent Name Role Phone Radha Jamison DO Primary Care Provider Abdias Murillo PharmD Unavailable Unavail able Nelia Sullivan PharmD Unavailable [phone] Reason for Visit * Reason Comments Med Refill Encounter Details Date Type Department Care Team (Late st Contact Info) Description 08/11/2022 Refill [facility] MEDICINE [address] [place] [address] Radha Jamison DO [address] [place] [address] Anemia, unspecified type Social History Tobacco Use [...] for patient to contact Mary Reynolds at [phone]. documented in this encounter Plan of Treatment Upcoming Encounters Date Type Department Care Team (Late st Contact Info) Description 11/05/2024 10:00 AM EDT Office Visit [facility] OPTOMETRY [address] [place], [place] [phone] 11/05/2024 11:00 AM EDT Medication Management [facility] MEDICINE [address] [place] [address] Nelia Sullivan PharmD [address] [place] [address] 11/11/2024 1:00 PM EDT Office Visit [facility] MEDICINE [address] [place] [address] Vickie Penaloza MD [address] [place] [address] documented as of this encounter Goals Goal [...] documented as of this encounter Care Teams Division Traffic Superintendent Relationship Specialty Start Date End Date Radha Jamison DO [address] [place] [phone] PCP - General Family Medicine 01/26/12 Abdias Murillo, PharmD [address] [place] [phone] Pharmacist Internal Medicine 03/21/22 08/30/23 Nelia Sullivan, PharmD [address] [place] [address] Pharmacist Internal Medicine 08/31/23 Laurel Monterroso Gl[employer] CufferTankman 10/27/22 Saige Aguilar 09/26/23 documented as of this encounter
--- OUTSIDE RECORDS SUMMARY | 2024-10-24 00:57 | XMS_ITS | Encounter Summary ---
Author Organization [employer] Address [address] [facility] [address] [place] [address] Care Team Providers Care Superintendent Operations Division Name Role Phone Radha Jamison DO Primary Care Provider [phone] Nelia Sullivan PharmD Unavailable [phone] Reason for Visit * Reason Comments Med Refill Encounter Details Date Type Department Care Team ([facility] Contact Info) Description 05/07/2024 Refill [facility] MEDICINE [address] [place], [place] [phone] Radha Jamison DO [address] [place] [address] Social History Tobacco Use Types Packs/Day Years [...] [facility] [address] [place], [place] [phone] 11/05/2024 11:00 AM EDT Medication Management [facility] MEDICINE [address] [place] [phone] Nelia Sullivan PharmD [address] [place] [phone] 11/11/2024 1:00 PM EDT Office Visit [facility] MEDICINE [address] [place] [address] Vickie Penaloza MD [address] [place] [address] documented as of this encounter Goals Goal [...] documented as of this encounter Care Teams Superintendent Operations Division Relationship Specialty Start Date End Date Radha Jamison DO [address] [place] [address] PCP - General Family Medicine 01/26/12 Nelia Sullivan, PharmD [address] [place] [address] Pharmacist Internal Medicine 08/31/23 Laurel Monterroso National Sales ExecutiveLacing Presser 10/27/22 Saige Aguilar 09/26/23 documented as of this encounter
--- OUTSIDE RECORDS SUMMARY | 2024-10-24 00:57 | XMS_ITS | Encounter Summary ---
Author Organization [employer] Address [address] [facility] [address] [place] [address] Care Team Providers Care Unit Manager [employer] Name Role Phone Radha Jamison DO Primary Care Provider [phone] Nelia Sullivan PharmD Unavailable [phone] Reason for Visit * Reason Onset Date Comments Returning Call 01/17/2024 Hospital Follow-up 01/17/2024 Encounter Details Date Type Department Care Team ([facility] st Contact Info) Description 01/17/2024 Telephone [facility] MEDICINE [address] [place] [address] Radha Jamison DO [address] [place] [address] Returning Call ; Hospital Follow-up Social History [...] t he electric, gas, oil or water [employer] threatened to shut off services in your [...] 10:00 AM EDT Office Visit [facility] OPTOMETRY [address] [place], [place] [phone] 11/05/2024 11:00 AM EDT Medication Management [facility] MEDICINE [address] [place] [address] Nelia Sullivan, PharmD [address] [place], [place] [phone] 11/11/2024 1:00 PM EDT Office Visit [facility] MEDICINE [address] [place] [address] Vickie Penaloza MD [address] [place] [address] documented as of this encounter Goals Goal [...] documented as of this encounter Care Teams Unit Manager [employer] Relationship Specialty Start Date End Date Radha Jamison DO [address] [place] [address] PCP - General Family Medicine 01/26/12 Puia, Nelia, PharmD [address] [place] [address] Pharmacist Internal Medicine 08/31/23 Laurel Monterroso [employer] ManagerCryptoanalysis Teacher 10/27/22 Saige Aguilar 09/26/23 documented as of this encounter
--- OUTSIDE RECORDS SUMMARY | 2024-10-24 00:57 | XMS_ITS | Encounter Summary ---
Author Organization [employer] Address [address] [facility] [address] [place] [address] Care Team Providers Care Tonguer Name Role Phone Radha Jamison DO Primary Care Provider Abdias Murillo PharmD Unavailable Unavail able Nelia Sullivan PharmD Unavailable Encounter Details Date Type Department Care Team (Late st Contact Info) Description 02/03/2022 Orders Only [facility] MEDICINE [address] [place] [address] Radha Jamison DO [address] [place] [address] Social History Tobacco Use Types Packs/Day Years [...] Description 11/05/2024 10:00 AM EDT Office Visit [facility] OPTOMETRY [address] [place], [place] [phone] 11/05/2024 11:00 AM EDT Medication Management [facility] MEDICINE [address] [place], [place] [phone] Nelia Sullivan, PharmD [address] [facility] [place] [address] 11/11/2024 1:00 PM EDT Office Visit [facility] MED[facility] [address] [facility] [place] [address] Vickie Penaloza MD [address] [facility], [place] [phone] documented as of this encounter Procedures Procedure [...] Sedimentation Rate 23(H) 0 - 20 MM/HR [facility] Comment:Patients with polycy themia and many hemoglobin abnormalitiesmay have depressed sed rates whereas patients with anemiamay have elevated sed rates. 04/24/2022 4:19 PM EDT 04/24/2022 4:27 PM EDT [facility] External Provider LAB BLO OD ORDERABLES Final Result Performing Organization Address [facility] Co de Phone Number [facility] [address] [place] [phone] * C-reactive Protein (04/24/2022 4:19 PM EDT) Pathologist [facility] C Reactive Protein 0.28 < or = 0.50 mg/dL [facility] 04/24/2022 4:19 PM EDT 04/24/2022 4:22 PM EDT [facility] External Provider LAB BLO OD ORDERABLES Final Result Performing Organization Address [facility] Phone Number [facility] [address] [place] [phone] * Magnesium (04/24/2022 4:19 PM EDT) Pathologist [facility] Magnesium 1.7 1.6 - 2.6 mg/dL [facility] 04/24/2022 4:19 PM EDT 04/24/2022 4:22 PM EDT [facility] External Provider LAB BLO OD ORDERABLES Final Result Performing Organization Address [facility] de Phone Number [facility] [address] [place] [phone] * (ABNORMAL) Basic Metabolic Panel (04/24/2022 4:19 PM EDT) Pathologist [facility] Sodium 135 135 - 145 mmol/L [facility] Potassium 4.7 3.3 - 5.1 mmol/L [facility] Chloride 100 96 - 108 mmol/L [facility] Carbon Dioxide 27 22 - 29 mmol/L [facility] Anion Gap 13 12 - 20 [facility] Urea Nitrogen (BUN) 20(H) 9 - 16 mg/dL [facility] Creatinine, Serum 1.01 0.5 - 1.4 mg/dL [facility] Creatinine Clr Calc Pharmacy 48.8 [facility] Comment:Provided height and weight: 152.4 cm,62.4 kg.eGFR (calculated from the MDRD study equation) and eCrCl(calculated from the Cockcroft-Gault equation) are based ondifferent parameters and may not yield comparable results.If eCrCl result is absurd, please check patient'sheight/weight. Estimated Glomerular Filt Rate 56 [facility] Comment:NOTE: For -Am erican individuals, multiply the result by 1.210.Chronic Kidney Disease: Estimated GFR < 60 mL/min/[id number] Kidney Disease: Estimated GFR < 15 mL/min/1.73m2 Glucose 269(H) 60 - 115 mg/dL [facility] Calcium 9.2 8.4 - 10.2 mg/dL [facility] 04/24/2022 4:19 PM EDT 04/24/2022 4:22 PM EDT us [facility] External Provider LAB BLO OD ORDERABLES Final Result [facility] [address] [place] [phone] * Hepatic Function Panel (04/24/2022 4:19 PM EDT) Bilirubin, Total 0.6 0.0 - 1.0 mg/dL [facility] Bilirubin, Direct <0.2 0.0 - 0.5 mg/dL [facility] Aspartate Amino Transferase 11 5 - 31 U/L [facility] Alanine Aminotransferase 6 0 - 31 U/L [facility] Total Protein 6.5 6.5 - 8.0 g/dL [facility] Albumin Level 4.0 3.5 - 5.0 g/dL [facility] Alkaline Phosphatase 80 39 - 117 U/L [facility] 04/24/2022 4:19 PM EDT 04/24/2022 4:22 PM EDT [facility] External Provider LAB BLO OD ORDERABLES Final Result [facility] [address] [place] [address] [phone] * (ABNORMAL) CBC auto differential (04/24/2022 4:19 PM EDT) White Blood Count 7.3 4.8 - 10.8 X10*3/uL [facility] Red Blood Count 4.14(L) 4.20 - 5.50 X10*6/uL [facility] Hemoglobin 12.1 12.0 - 16.0 g/dl [facility] Hematocrit 36.6(L) 37.0 - 47.0 % [facility] Mean Corpuscular Volume 88.4 80.0 - 98.0 fL [facility] Mean Corpuscular Hemoglobin 29.2 27.0 - 33.0 pg [facility] Mean Corpuscular HGB Conc 33.1 31.0 - 35.0 g/dl [facility] Red Cell Distribution Width 13.4 11.0 - 16.0 % [facility] Platelet Count 333 160 - 400 X10*3/uL [facility] Mean Platelet Volume 8.9(L) 9.4 - 12.3 fL [facility] Neutrophils Percent Auto 62.4 45 - 73 % [facility] Imm Gran Pct Auto 0.3 0.0 - 0.4 % [facility] Lymphocytes Percent Auto 28.8 20 - 40 % [facility] Monocytes Percent Auto 5.3 2 - 11 % [facility] Eosinophils Percent Auto 2.7 0 - 4 % [facility] Basophils Percent Auto 0.5 0 - 2 % [facility] NRBC Pct Auto 0.0 0.0 - 0.2 /100WBC [facility] Neutrophils Absolute Auto 4.6 2.0 - 8.3 x10*3/uL [facility] Imm Gran Abs Auto 0.02 0.00 - 0.03 X10*3/uL [facility] Lymphocytes Absolute Auto 2.1 1.2 - 4.9 X10*3/uL [facility] Monocytes Absolute Auto 0.4 0.1 - 1.2 X10*3/uL [facility] Eosinophils Absolute Auto 0.2 0.0 - 0.4 X10*3/uL [facility] Basophils Absolute Auto 0.0 0.0 - 0.2 X10*3/uL [facility] NRBC Abs Auto 0.000 0.0 - 0.012 X10*3/uL [facility] 04/24/2022 4:19 PM EDT 04/24/2022 4:22 PM EDT us [facility] External Provider LAB BLO OD ORDERABLES Final Result [facility] [address] [place] [phone] * (ABNORMAL) Urinalysis, Complete, with Reflex to Culture (04/17/2022 10:53 AM EST) Color Urine Yellow [facility] Appearance Urine Clear [facility] PH 7.5 5.0 - 9.0 [facility] Glucose Urine UA 100(A) Negative mg/dL [facility] Urine Blood Negative Negative [facility] Specific [place] - Urine >=1.030(H) 1.005 - 1.025 [facility] Urine Protein 100 (2+)(A) Neg-Trace mg/dL [facility] Urine Ketones Negative Negative mg/dL [facility] Nitrite Urine Negative Negative [facility] Leukocyte Esterase Urine Negative Negative [facility] RBC Urine 3-5(A) 0 - 2 /HPF [facility] Urine WBC 0-5 0 - 5 /HPF [facility] Urine Squamous Epithelial Cell 3-5 0 - 2 /HPF [facility] Urine Bacteria None Seen None Seen [facility] Hyaline Casts, Urine 0-2 0 - 2 /LPF [facility] 04/17/2022 10:5 3 AM EST 04/17/2022 10:56 AM EST Narrative [facility] - 04/17/2022 11:06 AM EST Urine, Clean Catch [facility] External Provider LAB URI NE ORDERABLES Final Result Performing Organization Address City/[facility] Co de Phone Number [facility] [address] [place] [address] [phone] * (ABNORMAL) Sed Rate by Modified Liloren (04/17/2022 8:21 AM EST) Erythrocyte Sedimentation Rate 23(H) 0 - 20 MM/HR [facility] Comment:Patients with polycy themia and many hemoglobin abnormalitiesmay have depressed sed rates whereas patients with anemiamay have elevated sed rates. 04/17/2022 8:21 AM EST 04/17/2022 8:41 AM EST [facility] External Provider LAB BLO OD ORDERABLES Final Result Performing Organization Address [facility] Co de Phone Number [facility] [address] [place] [address] [phone] * Lipase (04/17/2022 8:21 AM EST) Lipase 10 8 - 78 U/L [facility] 04/17/2022 8:21 AM EST 04/17/2022 8:24 AM EST [facility] External Provider LAB BLO OD ORDERABLES Final Result Performing Organization Address [facility] Co de Phone Number [facility] [address] [place] [address] [phone] * C-reactive Protein (04/17/2022 8:21 AM EST) Pathologist [facility] C Reactive Protein 0.23 < or = 0.50 mg/dL [facility] 04/17/2022 8:21 AM EST 04/17/2022 8:24 AM EST [facility] External Provider LAB BLO OD ORDERABLES Final Result Performing Organization Address [facility] Phone Number [facility] [address] [place] [phone] * Magnesium (04/17/2022 8:21 AM EST) [facility] Magnesium 1.6 1.6 - 2.6 mg/dL [facility] 04/17/2022 8:21 AM EST 04/17/2022 8:24 AM EST [facility] External Provider LAB BLO OD ORDERABLES Final Result Performing Organization Address [facility] Phone Number [facility] [address] [place] [phone] * (ABNORMAL) Hepatic Function Panel (04/17/2022 8:21 AM EST) Pathologist [facility] Bilirubin, Total 0.7 0.0 - 1.0 mg/dL [facility] Bilirubin, Direct <0.2 0.0 - 0.5 mg/dL [facility] Aspartate Amino Transferase 10 5 - 31 U/L [facility] Alanine Aminotransferase 7 0 - 31 U/L [facility] Total Protein 6.2(L) 6.5 - 8.0 g/dL [facility] Albumin Level 3.8 3.5 - 5.0 g/dL [facility] Alkaline Phosphatase 71 39 - 117 U/L [facility] 04/17/2022 8:21 AM EST 04/17/2022 8:24 AM EST [facility] External Provider LAB BLO OD ORDERABLES Final Result Performing Organization Address [facility]/ZIP Co de Phone Number [facility] [address] [place] [address] [phone] * (ABNORMAL) Basic Metabolic Panel (04/17/2022 8:21 AM EST) Sodium 138 135 - 145 mmol/L [facility] Potassium 4.9 3.3 - 5.1 mmol/L [facility] Chloride 104 96 - 108 mmol/L [facility] Carbon Dioxide 26 22 - 29 mmol/L [facility] Anion Gap 13 12 - 20 [facility] Urea Nitrogen (BUN) 17(H) 9 - 16 mg/dL [facility] Creatinine, Serum 0.79 0.5 - 1.4 mg/dL [facility] Creatinine Clr Calc Pharmacy 66.3 [facility] Comment:Provided height and weight: 157.48 cm,63.503 kg.eGFR (calculated from the MDRD study equation) and eCrCl(calculated from the Cockcroft-Gault equation) are based ondifferent parameters and may not yield comparable results.If eCrCl result is absurd, please check patient'sheight/weight. Estimated Glomerular Filt Rate >60 [facility] Comment:NOTE: For -Am erican individuals, multiply the result by 1.210.Chronic Kidney Disease: Estimated GFR < 60 mL/min/[id number] Kidney Disease: Estimated GFR < 15 mL/min/1.73m2 Glucose 272(H) 60 - 115 mg/dL [facility] Calcium 9.1 8.4 - 10.2 mg/dL [facility] 04/17/2022 8:21 AM EST 04/17/2022 8:24 AM EST us [facility] External Provider LAB BLO OD ORDERABLES Final Result Performing Organization Address [facility]/ZIP Co de Phone Number [facility] [address] [place] [address] [phone] * (ABNORMAL) CBC auto differential (04/17/2022 8:21 AM EST) White Blood Count 5.7 4.8 - 10.8 X10*3/uL [facility] Red Blood Count 4.01(L) 4.20 - 5.50 X10*6/uL [facility] Hemoglobin 11.7(L) 12.0 - 16.0 g/dl [facility] Hematocrit 35.9(L) 37.0 - 47.0 % [facility] Mean Corpuscular Volume 89.5 80.0 - 98.0 fL [facility] Mean Corpuscular Hemoglobin 29.2 27.0 - 33.0 pg [facility] Mean Corpuscular HGB Conc 32.6 31.0 - 35.0 g/dl [facility] Red Cell Distribution Width 13.4 11.0 - 16.0 % [facility] Platelet Count 309 160 - 400 X10*3/uL [facility] Mean Platelet Volume 9.3(L) 9.4 - 12.3 fL [facility] Neutrophils Percent Auto 60.9 45 - 73 % [facility] Imm Gran Pct Auto 0.4 0.0 - 0.4 % [facility] Lymphocytes Percent Auto 27.3 20 - 40 % [facility] Monocytes Percent Auto 6.3 2 - 11 % [facility] Eosinophils Percent Auto 4.4(H) 0 - 4 % [facility] Basophils Percent Auto 0.7 0 - 2 % [facility] NRBC Pct Auto 0.0 0.0 - 0.2 /100WBC [facility] Neutrophils Absolute Auto 3.5 2.0 - 8.3 x10*3/uL [facility] Imm Gran Abs Auto 0.02 0.00 - 0.03 X10*3/uL [facility] Lymphocytes Absolute Auto 1.6 1.2 - 4.9 X10*3/uL [facility] Monocytes Absolute Auto 0.4 0.1 - 1.2 X10*3/uL [facility] Eosinophils Absolute Auto 0.3 0.0 - 0.4 X10*3/uL [facility] Basophils Absolute Auto 0.0 0.0 - 0.2 X10*3/uL [facility] NRBC Abs Auto 0.000 0.0 - 0.012 X10*3/uL [facility] 04/17/2022 8:21 AM EST 04/17/2022 8:24 AM EST [facility] External Provider LAB BLO OD ORDERABLES Final Result Performing Organization Address [facility] Co de Phone Number [facility] [address] [place] [phone] * Creatinine, Serum (04/13/2022 7:33 AM EST) Creatinine, Serum 0.75 0.5 - 1.4 mg/dL [facility] Creatinine Clr Calc Pharmacy 70.3 [facility] Comment:Provided height and weight: 157.48 cm,64.41 kg.eGFR (calculated from the MDRD study equation) and eCrCl(calculated from the Cockcroft-Gault equation) are based ondifferent parameters and may not yield comparable results.If eCrCl result is absurd, please check patient'sheight/weight. Estimated Glomerular Filt Rate >60 [facility] Comment:NOTE: For -Am erican individuals, multiply the result by 1.210.Chronic Kidney Disease: Estimated GFR < 60 mL/min/1.55u3Adoyrh Kidney Disease: Estimated GFR < 15 mL/min/1.73m2 04/13/2022 7:33 AM EST 04/13/2022 7:38 AM EST [facility] External Provider LAB BLO OD ORDERABLES Final Result Performing Organization Address [facility] Co de Phone Number [facility] [address] [place] [phone] * BUN (Blood Urea Nitrogen) (04/13/2022 7:33 AM EST) Urea Nitrogen (BUN) 12 9 - 16 mg/dL [facility] 04/13/2022 7:33 AM EST 04/13/2022 7:38 AM EST [facility] External Provider LAB BLO OD ORDERABLES Final Result [facility] [address] [place] [address] [phone] * (ABNORMAL) CBC auto differential (04/13/2022 7:33 AM EST) White Blood Count 6.6 4.8 - 10.8 X10*3/uL [facility] Red Blood Count 4.12(L) 4.20 - 5.50 X10*6/uL [facility] Hemoglobin 12.1 12.0 - 16.0 g/dl [facility] Hematocrit 36.6(L) 37.0 - 47.0 % [facility] Mean Corpuscular Volume 88.8 80.0 - 98.0 fL [facility] Mean Corpuscular Hemoglobin 29.4 27.0 - 33.0 pg [facility] Mean Corpuscular HGB Conc 33.1 31.0 - 35.0 g/dl [facility] Red Cell Distribution Width 13.6 11.0 - 16.0 % [facility] Platelet Count 291 160 - 400 X10*3/uL [facility] Mean Platelet Volume 9.0(L) 9.4 - 12.3 fL [facility] Neutrophils Percent Auto 55.5 45 - 73 % [facility] Imm Gran Pct Auto 0.2 0.0 - 0.4 % [facility] Lymphocytes Percent Auto 33.7 20 - 40 % [facility] Monocytes Percent Auto 6.5 2 - 11 % [facility] Eosinophils Percent Auto 3.6 0 - 4 % [facility] Basophils Percent Auto 0.5 0 - 2 % [facility] NRBC Pct Auto 0.0 0.0 - 0.2 /100WBC [facility] Neutrophils Absolute Auto 3.7 2.0 - 8.3 x10*3/uL [facility] Imm Gran Abs Auto 0.01 0.00 - 0.03 X10*3/uL [facility] Lymphocytes Absolute Auto 2.2 1.2 - 4.9 X10*3/uL [facility] Monocytes Absolute Auto 0.4 0.1 - 1.2 X10*3/uL [facility] Eosinophils Absolute Auto 0.2 0.0 - 0.4 X10*3/uL [facility] Basophils Absolute Auto 0.0 0.0 - 0.2 X10*3/uL [facility] NRBC Abs Auto 0.000 0.0 - 0.012 X10*3/uL [facility] 04/13/2022 7:33 AM EST 04/13/2022 7:38 AM EST [facility] External Provider LAB BLO OD ORDERABLES Final Result Performing Organization Address City/[facility]/ZIP Co de Phone Number [facility] [address] [place] [phone] * (ABNORMAL) GLUCOSE, WHOLE BLOOD (04/13/2022 7:27 AM EST) [facility] Glucose, Whole Blood 197(H) 60 - 115 mg/dL [facility] Comment:METER #: [id number] 04/13/2022 7:27 AM EST 04/13/2022 7:31 AM EST [facility] External Provider LAB BLO OD ORDERABLES Final Result Performing Organization Address [facility] Co de Phone Number [facility] [address] [place] [address] [phone] * HIGH SENSITIVITY TROPONIN I (04/03/2022 8:36 PM EST) [facility] TROPONIN I HIGH SENSITIVITY 6.0 <3.5 - 17.0 ng/L [facility] Comment:The Ibrahim high sens itivity Troponin-I results should beused in conjunction with other diagnostic information suchas ECG, clinical observations and information, and patientsymptoms to aid in the diagnosis of ID. 04/03/2022 8:36 PM EST 04/03/2022 8:38 PM EST [facility] External Provider LAB BLO OD ORDERABLES Final Result Performing Organization Address [facility]/ZIP Co de Phone Number [facility] [address] [place] [phone] * Lipase (04/03/2022 8:36 PM EST) Lipase 10 8 - 78 U/L [facility] 04/03/2022 8:36 PM EST 04/03/2022 8:38 PM EST [facility] External Provider LAB BLO OD ORDERABLES Final Result Performing Organization Address [facility] Co de Phone Number [facility] [address] [place] [address] [phone] * (ABNORMAL) Basic Metabolic Panel (04/03/2022 8:36 PM EST) Sodium 138 135 - 145 mmol/L [facility] Potassium 3.9 3.3 - 5.1 mmol/L [facility] Chloride 104 96 - 108 mmol/L [facility] Carbon Dioxide 27 22 - 29 mmol/L [facility] Anion Gap 11(L) 12 - 20 [facility] Urea Nitrogen (BUN) 11 9 - 16 mg/dL [facility] Creatinine, Serum 0.74 0.5 - 1.4 mg/dL [facility] Creatinine Clr Calc Pharmacy 70.7 [facility] Comment:Provided height and weight: 157.48 cm,63.503 kg.eGFR (calculated from the MDRD study equation) and eCrCl(calculated from the Cockcroft-Gault equation) are based ondifferent parameters and may not yield comparable results.If eCrCl result is absurd, please check patient'sheight/weight. Estimated Glomerular Filt Rate >60 [facility] Comment:NOTE: For -Am erican individuals, multiply the result by 1.210.Chronic Kidney Disease: Estimated GFR < 60 mL/min/[id number] Kidney Disease: Estimated GFR < 15 mL/min/1.73m2 Glucose 246(H) 60 - 115 mg/dL [facility] Calcium 9.0 8.4 - 10.2 mg/dL [facility] 04/03/2022 8:36 PM EST 04/03/2022 8:38 PM EST [facility] External Provider LAB BLO OD ORDERABLES Final Result Performing Organization Address [facility] de Phone Number [facility] [address] [place] [phone] (ABNORMAL) Hepatic Function Panel (04/03/2022 8:36 PM EST) Bilirubin, Total 0.6 0.0 - 1.0 mg/dL [facility] LABS Bilirubin, Direct 0.2 0.0 - 0.5 mg/dL [facility] Aspartate Amino Transferase 10 5 - 31 U/L [facility] Alanine Aminotransferase 8 0 - 31 U/L [facility] Total Protein 5.8(L) 6.5 - 8.0 g/dL [facility] Albumin Level 3.7 3.5 - 5.0 g/dL [facility] Alkaline Phosphatase 76 39 - 117 U/L [facility] 04/03/2022 8:36 PM EST 04/03/2022 8:38 PM EST [facility] External Provider LAB BLO OD ORDERABLES Final Result Performing Organization Address [facility] Co de Phone Number [facility] [address] [place] [address] [phone] * (ABNORMAL) CBC auto differential (04/03/2022 8:36 PM EST) White Blood Count 6.0 4.8 - 10.8 X10*3/uL [facility] Red Blood Count 4.10(L) 4.20 - 5.50 X10*6/uL [facility] Hemoglobin 12.0 12.0 - 16.0 g/dl [facility] Hematocrit 35.6(L) 37.0 - 47.0 % [facility] Mean Corpuscular Volume 86.8 80.0 - 98.0 fL [facility] Mean Corpuscular Hemoglobin 29.3 27.0 - 33.0 pg [facility] Mean Corpuscular HGB Conc 33.7 31.0 - 35.0 g/dl [facility] Red Cell Distribution Width 13.3 11.0 - 16.0 % [facility] Platelet Count 276 160 - 400 X10*3/uL [facility] Mean Platelet Volume 9.2(L) 9.4 - 12.3 fL [facility] Neutrophils Percent Auto 58.2 45 - 73 % [facility] Imm Gran Pct Auto 0.2 0.0 - 0.4 % [facility] Lymphocytes Percent Auto 32.9 20 - 40 % [facility] Monocytes Percent Auto 6.0 2 - 11 % [facility] Eosinophils Percent Auto 2.2 0 - 4 % [facility] Basophils Percent Auto 0.5 0 - 2 % [facility] NRBC Pct Auto 0.0 0.0 - 0.2 /100WBC [facility] Neutrophils Absolute Auto 3.5 2.0 - 8.3 x10*3/uL [facility] Imm Gran Abs Auto 0.01 0.00 - 0.03 X10*3/uL [facility] Lymphocytes Absolute Auto 2.0 1.2 - 4.9 X10*3/uL [facility] Monocytes Absolute Auto 0.4 0.1 - 1.2 X10*3/uL [facility] Eosinophils Absolute Auto 0.1 0.0 - 0.4 X10*3/uL [facility] Basophils Absolute Auto 0.0 0.0 - 0.2 X10*3/uL [facility] NRBC Abs Auto 0.000 0.0 - 0.012 X10*3/uL [facility] 04/03/2022 8:36 PM EST 04/03/2022 8:38 PM EST [facility] External Provider LAB BLO OD ORDERABLES Final Result Performing Organization Address [facility] de Phone Number [facility] [address] [place] [address] [phone] * (ABNORMAL) GLUCOSE, WHOLE BLOOD (04/03/2022 7:56 PM EST) Pathologist [facility] Glucose, Whole Blood 227(H) 60 - 115 mg/dL [facility] Comment:METER #: [id number] 04/03/2022 7:56 PM EST 04/03/2022 8:01 PM EST [facility] External Provider LAB BLO OD ORDERABLES Final Result Performing Organization Address [facility] Phone Number [facility] [address] [place] [address] [phone] * (ABNORMAL) B Type Natriuretic Peptide (BNP) (03/09/2022 5:39 PM EST) Pathologist [facility] B Type Natriuretic Peptide 125(H) <100 pg/mL [facility] Comment:For those patients w ho are being treated with Natrecor(nesiritide, recombinant BNP), BNP testing should beperformed at least two hours post treatment in order toensure that only endogenous levels of BNP are detected. 03/09/2022 5:39 PM EST 03/09/2022 6:48 PM EST [facility] External Provider LAB BLO OD ORDERABLES Final Result Performing Organization Address [facility] de Phone Number [facility] [address] [place] [address] [phone] * SARS-CoV-2 RNA, Influenza A/B, and RSV RNA, Ql NAAT (03/09/2022 5:39 PM EST) Pathologist [facility] Influenza A PCR NEGATIVE Negative [facility] Influenza B PCR NEGATIVE Negative [facility] Resp Syncy Virus RNA Qual PCR NEGATIVE Negative [facility] SARS COV2 PCR NEGATIVE Negative [facility] SARS/Flu/RSV Note See Note [facility] Comment:All test results mus t [...] use by authorized laboratories.Testing performed on the [employer] GeneXpert utilizingreal-time RT-PCR.All SARS CoV2 and positive influenza A/B results arereported to [facility]. 03/09/2022 5:39 PM EST 03/09/2022 5:43 PM EST [facility] Exter nal Provider LAB MICROBIOLOGY - GENERAL ORDERABLES Final Result [facility] [address] [place] [phone] * HIGH SENSITIVITY TROPONIN I (03/09/2022 5:39 PM EST) Pathologist [facility] TROPONIN I HIGH SENSITIVITY 5.6 <3.5 - 17.0 ng/L [facility] Comment:The Ibrahim high sens itivity Troponin-I results should beused in conjunction with other diagnostic information suchas ECG, clinical observations and information, and patientsymptoms to aid in the diagnosis of ID. 03/09/2022 5:39 PM EST 03/09/2022 5:43 PM EST us [facility] External Provider LAB BLO OD ORDERABLES Final Result [facility] [address] [place] [phone] * (ABNORMAL) Comprehensive Metabolic Panel (03/09/2022 5:39 PM EST) Sodium 139 135 - 145 mmol/L [facility] Potassium 3.9 3.3 - 5.1 mmol/L [facility] Chloride 103 96 - 108 mmol/L [facility] Carbon Dioxide 27 22 - 29 mmol/L [facility] Anion Gap 13 12 - 20 [facility] Urea Nitrogen (BUN) 18(H) 9 - 16 mg/dL [facility] Creatinine, Serum 0.95 0.5 - 1.4 mg/dL [facility] Creatinine Clr Calc Pharmacy 53.0 [facility] Comment:Provided height and weight: 152.4 cm,65.2 kg.eGFR (calculated from the MDRD study equation) and eCrCl(calculated from the Cockcroft-Gault equation) are based ondifferent parameters and may not yield comparable results.If eCrCl result is absurd, please check patient'sheight/weight. Estimated Glomerular Filt Rate >60 [facility] Comment:NOTE: For -Am erican individuals, multiply the result by 1.210.Chronic Kidney Disease: Estimated GFR < 60 mL/min/[id number] Kidney Disease: Estimated GFR < 15 mL/min/1.73m2 Glucose 326(H) 60 - 115 mg/dL [facility] Calcium 9.1 8.4 - 10.2 mg/dL [facility] Bilirubin, Total 0.3 0.0 - 1.0 mg/dL [facility] Aspartate Amino Transferase 8 5 - 31 U/L [facility] Alanine Aminotransferase <6 0 - 31 U/L [facility] Total Protein 5.9(L) 6.5 - 8.0 g/dL [facility] Albumin Level 3.6 3.5 - 5.0 g/dL [facility] Alkaline Phosphatase 81 39 - 117 U/L [facility] 03/09/2022 5:39 PM EST 03/09/2022 5:43 PM EST us [facility] External Provider LAB BLO OD ORDERABLES Final Result [facility] [address] [place] [phone] * (ABNORMAL) CBC auto differential (03/09/2022 5:39 PM EST) White Blood Count 7.3 4.8 - 10.8 X10*3/uL [facility] Red Blood Count 4.03(L) 4.20 - 5.50 X10*6/uL [facility] Hemoglobin 11.7(L) 12.0 - 16.0 g/dl [facility] Hematocrit 35.1(L) 37.0 - 47.0 % [facility] Mean Corpuscular Volume 87.1 80.0 - 98.0 fL [facility] Mean Corpuscular Hemoglobin 29.0 27.0 - 33.0 pg [facility] Mean Corpuscular HGB Conc 33.3 31.0 - 35.0 g/dl [facility] Red Cell Distribution Width 13.4 11.0 - 16.0 % [facility] Platelet Count 296 160 - 400 X10*3/uL [facility] Mean Platelet Volume 9.3(L) 9.4 - 12.3 fL [facility] Neutrophils Percent Auto 63.9 45 - 73 % [facility] Imm Gran Pct Auto 0.1 0.0 - 0.4 % [facility] Lymphocytes Percent Auto 27.1 20 - 40 % [facility] Monocytes Percent Auto 5.9 2 - 11 % [facility] Eosinophils Percent Auto 2.6 0 - 4 % [facility] Basophils Percent Auto 0.4 0 - 2 % [facility] NRBC Pct Auto 0.0 0.0 - 0.2 /100WBC [facility] Neutrophils Absolute Auto 4.6 2.0 - 8.3 x10*3/uL [facility] Imm Gran Abs Auto 0.01 0.00 - 0.03 X10*3/uL [facility] Lymphocytes Absolute Auto 2.0 1.2 - 4.9 X10*3/uL [facility] Monocytes Absolute Auto 0.4 0.1 - 1.2 X10*3/uL [facility] Eosinophils Absolute Auto 0.2 0.0 - 0.4 X10*3/uL [facility] Basophils Absolute Auto 0.0 0.0 - 0.2 X10*3/uL [facility] NRBC Abs Auto 0.000 0.0 - 0.012 X10*3/uL [facility] 03/09/2022 5:39 PM EST 03/09/2022 5:43 PM EST [facility] External Provider LAB BLO OD ORDERABLES Final Result [facility] [address] [place] [address] [phone] * Prothrombin Time-INR (03/09/2022 5:39 PM EST) Prothrombin Time 10.9 10.0 - 13.1 SEC [facility] INTERNATIONAL NORM RATIO 1.0 0.9 - 1.1 [facility] Comment:INTERNATIONAL NORMAL IZED RATIO (INR) [...] 5:39 PM EST 03/09/2022 5:43 PM EST [facility] External Provider LAB BLO OD ORDERABLES Final Result Performing Organization Address [facility] Co de Phone Number [facility] [address] [place] [address] [phone] * GLUCOSE, WHOLE BLOOD (03/01/2022 12:41 AM EST) Glucose, Whole Blood 79 60 - 115 mg/dL [facility] Comment:METER #: [id number] 1 03/01/2022 12:4 1 AM EST 03/01/2022 12:46 AM EST [facility] External Provider LAB BLO OD ORDERABLES Final Result Performing Organization Address [facility] Phone Number [facility] [address] [place] [address] [phone] * (ABNORMAL) GLUCOSE, WHOLE BLOOD (02/28/2022 10:39 PM EST) Glucose, Whole Blood 273(H) 60 - 115 mg/dL [facility] Comment:METER #: [id number] 1 02/28/2022 10:3 9 PM EST 02/28/2022 10:45 PM EST [facility] External Provider LAB BLO OD ORDERABLES Final Result Performing Organization Address [facility] Co de Phone Number [facility] [address] [place] [address] [phone] * (ABNORMAL) Comprehensive Metabolic Panel (02/28/2022 9:42 PM EST) Sodium 138 135 - 145 mmol/L [facility] Potassium 4.3 3.3 - 5.1 mmol/L [facility] Comment:Slight Hemolysis Chloride 106 96 - 108 mmol/L [facility] Carbon Dioxide 24 22 - 29 mmol/L [facility] Anion Gap 12 12 - 20 [facility] Urea Nitrogen (BUN) 14 9 - 16 mg/dL [facility] Creatinine, Serum 0.87 0.5 - 1.4 mg/dL [facility] Creatinine Clr Calc Pharmacy 57.2 [facility] Comment:Provided height and weight: 152.4 cm,63.503 kg.eGFR (calculated from the MDRD study equation) and eCrCl(calculated from the Cockcroft-Gault equation) are based ondifferent parameters and may not yield comparable results.If eCrCl result is absurd, please check patient'sheight/weight. Estimated Glomerular Filt Rate >60 [facility] Comment:NOTE: For -Am erican individuals, multiply the result by 1.210.Chronic Kidney Disease: Estimated GFR < 60 mL/min/[id number] Kidney Disease: Estimated GFR < 15 mL/min/1.73m2 Glucose 378(HH) 60 - 115 mg/dL [facility] Comment:Critical value for t est(s): GLUR Results called to and readback by: EULA Person calling: BIANKA Date: 02/28/22Time: 2220 Calcium 9.3 8.4 - 10.2 mg/dL [facility] Bilirubin, Total 0.3 0.0 - 1.0 mg/dL [facility] Aspartate Amino Transferase 12 5 - 31 U/L [facility] Comment:Slight Hemolysis Alanine Aminotransferase 7 0 - 31 U/L [facility] Total Protein 6.7 6.5 - 8.0 g/dL [facility] Albumin Level 3.9 3.5 - 5.0 g/dL [facility] Alkaline Phosphatase 83 39 - 117 U/L [facility] 02/28/2022 9:42 PM EST 02/28/2022 9:48 PM EST us [facility] External Provider LAB BLO OD ORDERABLES Final Result [facility] [address] [place] [phone] * HIGH SENSITIVITY TROPONIN I (02/28/2022 9:42 PM EST) TROPONIN I HIGH SENSITIVITY 7.1 <3.5 - 17.0 ng/L [facility] Comment:The Ibrahim high sens itivity Troponin-I results should beused in conjunction with other diagnostic information suchas ECG, clinical observations and information, and patientsymptoms to aid in the diagnosis of ID. 02/28/2022 9:42 PM EST 02/28/2022 9:48 PM EST us [facility] External Provider LAB BLO OD ORDERABLES Final Result [facility] [address] [place] [address] [phone] * (ABNORMAL) CBC (02/28/2022 9:42 PM EST) [facility] White Blood Count 7.0 4.8 - 10.8 X10*3/uL [facility] Red Blood Count 4.22 4.20 - 5.50 X10*6/uL [facility] Hemoglobin 12.1 12.0 - 16.0 g/dl [facility] Hematocrit 36.4(L) 37.0 - 47.0 % [facility] Mean Corpuscular Volume 86.3 80.0 - 98.0 fL [facility] Mean Corpuscular Hemoglobin 28.7 27.0 - 33.0 pg [facility] Mean Corpuscular HGB Conc 33.2 31.0 - 35.0 g/dl [facility] Red Cell Distribution Width 13.3 11.0 - 16.0 % [facility] Platelet Count 311 160 - 400 X10*3/uL [facility] Mean Platelet Volume 9.7 9.4 - 12.3 fL [facility] NRBC Pct Auto 0.0 0.0 - 0.2 /100WBC [facility] NRBC Abs Auto 0.000 0.0 - 0.012 X10*3/uL [facility] 02/28/2022 9:42 PM EST 02/28/2022 9:48 PM EST [facility] External Provider LAB BLO OD ORDERABLES Final Result Performing Organization Address City/[facility]/ZIP Co de Phone Number [facility] [address] [place] [phone] * (ABNORMAL) GLUCOSE, WHOLE BLOOD (02/28/2022 9:38 PM EST) Glucose, Whole Blood 379(HH) 60 - 115 mg/dL [facility] Comment:METER #: [id number] 1 02/28/2022 9:38 PM EST 02/28/2022 9:48 PM EST [facility] External Provider LAB BLO OD ORDERABLES Final Result Performing Organization Address [facility] Co de Phone Number [facility] [address] [place] [address] [phone] * (ABNORMAL) Urinalysis, Complete, with Reflex to Culture (02/22/2022 3:20 PM EST) Color Urine Yellow [facility] Appearance Urine Cloudy [facility] PH 6.5 5.0 - 9.0 [facility] Glucose Urine UA >=1000(A) Negative mg/dL [facility] Urine Blood Negative Negative [facility] Specific [place] - Urine 1.020 1.005 - 1.025 [facility] Urine Protein 100 (2+)(A) Neg-Trace mg/dL [facility] Urine Ketones Negative Negative mg/dL [facility] Nitrite Urine Negative Negative [facility] Leukocyte Esterase Urine Small (1+)(A) Negative [facility] RBC Urine 3-5(A) 0 - 2 /HPF [facility] Urine WBC 0-5 0 - 5 /HPF [facility] Urine Squamous Epithelial Cell 0-2 0 - 2 /HPF [facility] Urine Bacteria None Seen None Seen [facility] Hyaline Casts, Urine 3-5 0 - 2 /LPF [facility] 02/22/2022 3:20 PM EST 02/22/2022 3:27 PM EST Narrative [facility] - 02/22/2022 4:14 PM EST [id number], Clean Catch [facility] External Provider LAB URI NE ORDERABLES Final Result Performing Organization Address [facility]/ZIP Co de Phone Number [facility] [address] [place] [address] [phone] * SARS-CoV-2 RNA, Influenza A/B, and RSV RNA, Ql NAAT (02/22/2022 3:14 PM EST) Influenza A PCR NEGATIVE Negative [facility] Influenza B PCR NEGATIVE Negative [facility] Resp Syncy Virus RNA Qual PCR NEGATIVE Negative [facility] SARS COV2 PCR NEGATIVE Negative [facility] SARS/Flu/RSV Note See Note [facility] Comment:All test results mus t [...] use by authorized laboratories.Testing performed on the [employer] GeneXpert utilizingreal-time RT-PCR.All SARS CoV2 and positive influenza A/B results arereported to [facility]. 02/22/2022 3:14 PM EST 02/22/2022 3:19 PM EST [facility] Exter nal Provider LAB MICROBIOLOGY - GENERAL ORDERABLES Final Result Performing Organization Address [facility]/ZIP Co de Phone Number [facility] [address] [place] [phone] * HIGH SENSITIVITY TROPONIN I (02/22/2022 3:14 PM EST) [facility] TROPONIN I HIGH SENSITIVITY 8.8 <3.5 - 17.0 ng/L [facility] Comment:The Ibrahim high sens itivity Troponin-I results should beused in conjunction with other diagnostic information suchas ECG, clinical observations and information, and patientsymptoms to aid in the diagnosis of ID. 02/22/2022 3:14 PM EST 02/22/2022 3:19 PM EST [facility] External Provider LAB BLO OD ORDERABLES Final Result Performing Organization Address [facility]/ZIP Co de Phone Number [facility] [address] [place] [phone] * Magnesium (02/22/2022 3:14 PM EST) [facility] Magnesium 1.6 1.6 - 2.6 mg/dL [facility] 02/22/2022 3:14 PM EST 02/22/2022 3:19 PM EST [facility] External Provider LAB BLO OD ORDERABLES Final Result Performing Organization Address [facility] Co de Phone Number [facility] [address] [place] [phone] * (ABNORMAL) Basic Metabolic Panel (02/22/2022 3:14 PM EST) [facility] Sodium 136 135 - 145 mmol/L [facility] Potassium 4.4 3.3 - 5.1 mmol/L [facility] Chloride 103 96 - 108 mmol/L [facility] Carbon Dioxide 27 22 - 29 mmol/L [facility] Anion Gap 10(L) 12 - 20 [facility] Urea Nitrogen (BUN) 20(H) 9 - 16 mg/dL [facility] Creatinine, Serum 0.99 0.5 - 1.4 mg/dL [facility] Creatinine Clr Calc Pharmacy 50.6 [facility] Comment:Provided height and weight: 152.4 cm,64.5 kg.eGFR (calculated from the MDRD study equation) and eCrCl(calculated from the Cockcroft-Gault equation) are based ondifferent parameters and may not yield comparable results.If eCrCl result is absurd, please check patient'sheight/weight. Estimated Glomerular Filt Rate 57 [facility] Comment:NOTE: For -Am erican individuals, multiply the result by 1.210.Chronic Kidney Disease: Estimated GFR < 60 mL/min/[id number] Kidney Disease: Estimated GFR < 15 mL/min/1.73m2 Glucose 343(H) 60 - 115 mg/dL [facility] Calcium 9.3 8.4 - 10.2 mg/dL [facility] 02/22/2022 3:14 PM EST 02/22/2022 3:19 PM EST [facility] External Provider LAB BLO OD ORDERABLES Final Result [facility] [address] [place] [phone] * (ABNORMAL) Hepatic Function Panel (02/22/2022 3:14 PM EST) Bilirubin, Total 0.4 0.0 - 1.0 mg/dL [facility] Bilirubin, Direct <0.2 0.0 - 0.5 mg/dL [facility] Aspartate Amino Transferase 10 5 - 31 U/L [facility] Alanine Aminotransferase 6 0 - 31 U/L [facility] Total Protein 6.1(L) 6.5 - 8.0 g/dL [facility] Albumin Level 3.7 3.5 - 5.0 g/dL [facility] Alkaline Phosphatase 82 39 - 117 U/L [facility] 02/22/2022 3:14 PM EST 02/22/2022 3:19 PM EST us [facility] External Provider LAB BLO OD ORDERABLES Final Result [facility] [address], [place] [id number] [phone] * (ABNORMAL) CBC auto differential (02/22/2022 3:14 PM EST) White Blood Count 5.6 4.8 - 10.8 X10*3/uL [facility] Red Blood Count 3.99(L) 4.20 - 5.50 X10*6/uL [facility] Hemoglobin 11.8(L) 12.0 - 16.0 g/dl [facility] Hematocrit 35.1(L) 37.0 - 47.0 % [facility] Mean Corpuscular Volume 88.0 80.0 - 98.0 fL [facility] Mean Corpuscular Hemoglobin 29.6 27.0 - 33.0 pg [facility] Mean Corpuscular HGB Conc 33.6 31.0 - 35.0 g/dl [facility] Red Cell Distribution Width 13.2 11.0 - 16.0 % [facility] Platelet Count 265 160 - 400 X10*3/uL [facility] Mean Platelet Volume 10.0 9.4 - 12.3 fL [facility] Neutrophils Percent Auto 49.1 45 - 73 % [facility] Imm Gran Pct Auto 0.4 0.0 - 0.4 % [facility] Lymphocytes Percent Auto 40.1(H) 20 - 40 % [facility] Monocytes Percent Auto 6.1 2 - 11 % [facility] Eosinophils Percent Auto 3.4 0 - 4 % [facility] Basophils Percent Auto 0.9 0 - 2 % [facility] NRBC Pct Auto 0.0 0.0 - 0.2 /100WBC [facility] Neutrophils Absolute Auto 2.7 2.0 - 8.3 x10*3/uL [facility] Imm Gran Abs Auto 0.02 0.00 - 0.03 X10*3/uL [facility] Lymphocytes Absolute Auto 2.2 1.2 - 4.9 X10*3/uL [facility] Monocytes Absolute Auto 0.3 0.1 - 1.2 X10*3/uL [facility] Eosinophils Absolute Auto 0.2 0.0 - 0.4 X10*3/uL [facility] Basophils Absolute Auto 0.1 0.0 - 0.2 X10*3/uL [facility] NRBC Abs Auto 0.000 0.0 - 0.012 X10*3/uL [facility] 02/22/2022 3:14 PM EST 02/22/2022 3:19 PM EST [facility] External Provider LAB BLO OD ORDERABLES Final Result Performing Organization Address [facility] Co de Phone Number [facility] [address] [place] [phone] * Culture, Urine, Routine (02/22/2022 12:00 AM EST) 02/22/2022 02/22/2022 5:2 3 PM EST Comment:UACC Narrative [facility] - 02/24/2022 11:31 AM EST Urine Culture Report Result Urine Culture 10,000 to 50,000 cfu/ml Urine Culture Mixed bacterial benton characteristic of Urine Culture urogenital contamination. Specimen Source: Urine clean catch [facility] Exter nal Provider LAB MICROBIOLOGY - GENERAL ORDERABLES Final Result Performing Organization Address [facility] de Phone Number [facility] [address] [place] [phone] documented in this encounter Visit Diagnoses Not on filedocumented in this encounter Care Teams Tonguer Relationship Specialty Start Date End Date Radha Jamison DO [address] [place] [address] PCP - General Family Medicine 01/26/12 Abdias Murillo, Camron [address] [place] [address] Pharmacist Internal Medicine 03/21/22 08/30/23 Nelia Sullivan, PharmD [address] [place] [address] Pharmacist Internal Medicine 08/31/23 Laurel Monterroso Nursing Staff Development CoordinatorStonework Tracer 10/27/22 Saige Aguilar 09/26/23 documented as of this encounter
--- OUTSIDE RECORDS SUMMARY | 2024-10-24 00:57 | XMS_ITS | Encounter Summary ---
Author Organization [employer] Address 75 [facility] 7t [place] [address] Care Team Providers Care Community Health Nurse Supervisor Name Role Phone Radha Jamison DO Primary Care Provider +1- [phone] Nelia Sullivan PharmD Unavailable [phone] Reason for Visit * Reason Comments Med Refill Encounter Details Date Type Department Care Team ([facility] st Contact Info) Description 05/17/2024 Refill [facility] [address] [place] [address] Radha Jamison DO [address] [place] [address] Chronic bilateral low back pain, unspecified whether [...] the past 12 months, has t he [employer], gas, oil or water [employer] threatened to shut off services in your [...] 10:00 AM EDT Office Visit [facility] OPTOMETRY [address] [place] [address] 11/05/2024 11:00 AM EDT Medication Management [facility] MED[facility]INE [address] [place] [address] Nelia Sullivan, PharmD [address] [place] [address] 11/11/2024 1:00 PM EDT Office Visit [facility] MED[facility]INE [address] [place] [address] Vickie Penaloza MD [address] [place] [address] documented as of this encounter Goals Goal [...] as of this encounter Care Teams Community Health Nurse Supervisor Relationship Specialty Start Date End Date Radha Jamison DO [address] [place] [address] PCP - General Family Medicine 01/26/12 Nelia Sullivan PharmD [address] [place] [address] Pharmacist Internal Medicine 08/31/23 Laurel Monterroso Upper And Bottom Lacer HandAnalytics Intern 10/27/22 Saige Aguilar 09/26/23 documented as of this encounter
--- OUTSIDE RECORDS SUMMARY | 2024-10-24 00:57 | XMS_ITS | Encounter Summary ---
Author Organization [employer] Address 75 [facility] 7t [place] [address] Care Team Providers Care Lean Leader Name Role Phone Radha Jamison DO Primary Care Provider Abdias Murillo PharmD Unavailable Unavail able Nelia Sullivan PharmD Unavailable [phone] Reason for Visit * Reason Onset Date Comments Med Refill 10/24/2022 Encounter Details Date Type Department Care Team (Late st Contact Info) Description 10/24/2022 Telephone [facility] MED[facility]INE [address] [place] [address] Radha Jamison DO [address] [place], [place] [phone] Med Refill Social History Tobacco Use Types [...] 10:00 AM EDT Office Visit [facility] OPTOMETRY [address] [place], [place] [phone] 11/05/2024 11:00 AM EDT Medication Management [facility] [address] [place] [address] Nelia Sullivan PharmD [address] [place] [address] 11/11/2024 1:00 PM EDT Office Visit [facility] [address] [place] [address] Vickie Penaloza MD [address] [place] [address] documented as of this encounter Goals Goal [...] documented as of this encounter Care Teams Lean Leader Relationship Specialty Start Date End Date Radha Jamison DO [address] [place] [address] PCP - General Family Medicine 01/26/12 Abdias Murillo, PharmD [address] [place] [address] Pharmacist Internal Medicine 03/21/22 08/30/23 Nelia Sullivan, PharmD [address] [place] [address] Pharmacist Internal Medicine 08/31/23 Laurel Monterroso Director Nursing ServiceTucking Machine Operator 10/27/22 Saige Aguilar 09/26/23 documented as of this encounter
--- OUTSIDE RECORDS SUMMARY | 2024-10-24 00:57 | XMS_ITS | Encounter Summary ---
Author Organization [employer] Address 75 [facility] 7t [place] [address] Care Team Providers Care House Furnishings Supervisor Name Role Phone Radha Jamison DO Primary Care Provider Abdias Murillo PharmD Unavailable Unavail able Nelia Sullivan PharmD Unavailable Encounter Details Date Type Department Care Team ([facility] st Contact Info) Description 10/10/2022 Telephone [facility] MEDICINE [address] [place] [address] Radha Jamison DO [address] [place] [address] Social History Tobacco Use Types Packs/Day Years [...] 10:00 AM EDT Office Visit [facility] OPTOMETRY [address] [place] [address] 11/05/2024 11:00 AM EDT Medication Management [facility] MEDICINE [address] [place] [address] Nelia Sullivan PharmD [address] [place] [address] 11/11/2024 1:00 PM EDT Office Visit [facility] MEDICINE [address] [place] [address] Vickie Penaloza MD [address] [place] [address] documented as of this encounter Goals Goal [...] documented as of this encounter Care Teams House Furnishings Supervisor Relationship Specialty Start Date End Date Radha Jamison DO [address] [place] [address] PCP - General Family Medicine 01/26/12 Abdias Murillo PharmD [address] [place] [address] Pharmacist Internal Medicine 03/21/22 08/30/23 Nelia Sullivan PharmD [address] [place] [address] Pharmacist Internal Medicine 08/31/23 Laurel Monterroso Senior Compensation ConsultantPharmaceutical Analyst 10/27/22 Saige Aguilar 09/26/23 documented as of this encounter
--- OUTSIDE RECORDS SUMMARY | 2024-10-24 00:57 | XMS_ITS | Encounter Summary ---
Author Organization [employer] Address 75 [facility] 7t [place] [address] Care Team Providers Care Padder Cushion Name Role Phone Radha Jamison DO Primary Care Provider [phone] Abdias Murillo PharmD Unavailable Unavail able Nelia Sullivan PharmD Unavailable [phone] Reason for Visit * Reason Comments Med Refill Encounter Details Date Type Department Care Team (Late st Contact Info) Description 08/01/2023 Refill [facility] MEDICINE [address] [place] [address] Radha Jamison DO [address] [place] [address] Chronic bilateral low back pain, unspecified whether [...] Description 11/05/2024 10:00 AM EDT Office Visit [facility] OPTOMETRY [address] [place] [address] 11/05/2024 11:00 AM EDT Medication Management [facility] [address] [place] [address] Nelia Sullivan PharmD [address] [place] [address] 11/11/2024 1:00 PM EDT Office Visit [facility] MEDICINE [address] [place] [address] Vickie Penaloza MD [address] [place] [address] documented as of this encounter Goals Goal [...] documented as of this encounter Care Teams Padder Cushion Relationship Specialty Start Date End Date Radha Jamison DO [address] [place] [address] PCP - General Family Medicine 01/26/12 Abdias Murillo, KeithD [address] [place] [address] Pharmacist Internal Medicine 03/21/22 08/30/23 Nelia Sullivan PharmD [address] [place] [address] Pharmacist Internal Medicine 08/31/23 Laurel Monterroso Optical Glass InspectorPartner Management Consultant 10/27/22 Saige Aguilar 09/26/23 documented as of this encounter
--- OUTSIDE RECORDS SUMMARY | 2024-10-24 00:57 | XMS_ITS | Encounter Summary ---
Author Organization [employer] Address 75 [facility] 7t [place] [address] Care Team Providers Care Assistant Merchandise Manager Name Role Phone Radha Jamison DO Primary Care Provider [phone]- [phone] Abdias Murillo PharmD Unavailable Unavail able Nelia Sullivan PharmD Unavailable [phone] Reason for Visit * Reason Comments Med Refill Encounter Details Date Type Department Care Team (Late st Contact Info) Description 04/14/2023 Refill [facility] MEDICINE [address] [place], [place] [phone] Radha Jamison DO [address] [place], [place] [phone] Type 2 diabetes mellitus with hyperglycemia, with long-term current use of insulin ([facility] Social History [...] Description 11/05/2024 10:00 AM EDT Office Visit [facility] OPTOMETRY [address] [place] [address] 11/05/2024 11:00 AM EDT Medication Management [facility] [address] [place] [address] Nelia Sullivan PharmD [address] [place] [address] 11/11/2024 1:00 PM EDT Office Visit [facility] MEDICINE [address] [place] [address] Vickie Penaloza MD [address] [place] [address] documented as of this encounter Goals Goal Patient Goal Type Associated Problems Recent Progress Patient-Stated? Author Hemoglobin A1c < 7 Result Component 10.1( 4:57 PM EDT) No Abdias Murillo, PharmD documented as of this encounter Visit Diagnoses Diagnosis Type 2 diabetes mellitus with hyperglycemia, with long-term current use of insulin ([facility]) documented in this encounter Additional Health Concerns Assessment Noted Time PHQ-9 Depression Total Score: 4 11/09/19 23 11:27 AM EDT documented as of this encounter Care Teams Assistant Merchandise Manager Relationship Specialty Start Date End Date Radha Jamison DO [address] [place] [address] PCP - General Family Medicine 01/26/12 Abdias Murillo PharmD [address] [place] [address] Pharmacist Internal Medicine 03/21/22 08/30/23 Nelia Sullivan PharmD [address] [place] [address] Pharmacist Internal Medicine 08/31/23 Laurel Monterroso Patient Care SpecialistEnvironmental Health And Safety Intern 10/27/22 Saige Aguilar 09/26/23 documented as of this encounter
--- OUTSIDE RECORDS SUMMARY | 2024-10-24 00:57 | XMS_ITS | Encounter Summary ---
Author Organization [employer] Address 75 [facility] 7t [place] [address] Care Team Providers Care Syruper Name Role Phone Radha Jamison DO Primary Care Provider DelAbdias hardy PharmD Unavailable Unavail able Nelia Sullivan PharmD Unavailable Reason for Visit * Reason Comments Med Refill Encounter Details Date Type Department Care Team ([facility] Contact Info) Description 11/10/2022 Refill [facility] MEDICINE [address] [place] [address] Radha Jamison DO [address] [place] [address] Chronic gastroesophageal reflux disease Social History Tobacco [...] Type Department Care Team ([facility] Contact Info) Description 11/05/2024 10:00 AM EDT Office Visit [facility] OPTOMETRY [address] [place], [place] [phone] 11/05/2024 11:00 AM EDT Medication Management [facility] MEDICINE [address] [place] [address] Nelia Sullivan PharmD [address] [place] [address] 11/11/2024 1:00 PM EDT Office Visit [facility] MEDICINE [address] [place] [address] Vickie Penaloza MD [address] [place] [address] documented as of this encounter Goals Goal [...] documented as of this encounter Care Teams Syruper Relationship Specialty Start Date End [place] [address] PCP - General Family Medicine 01/26/12 Abdias Murillo, PharmD [address] [place] [address] Pharmacist Internal Medicine 03/21/22 08/30/23 Nelia Sullivan PharmD [address] [place] [address] Pharmacist Internal Medicine 08/31/23 Laurel Monterroso Ehs ManagerTraveling Inventory Associate 10/27/22 Saige Aguilar 09/26/23 documented as of this encounter
--- OUTSIDE RECORDS SUMMARY | 2024-10-24 00:57 | XMS_ITS | Encounter Summary ---
Author Organization [employer] Address 75 [facility] 7t [place] [address] Care Team Providers Care Human Resources Operations Director Name Role Phone Radha Jamison DO Primary Care Provider [phone]- [phone] Nelia Sullivan PharmD Unavailable [phone] Reason for Visit * Reason Onset Date Comments Med Refill 05/07/2024 Encounter Details Date Type Department Care Team (Late st Contact Info) Description 05/07/[address] [facility] MEDICINE [address] [place] [address] Radha Jamison DO [address] [place], [place] [phone] Med Refill Social History Tobacco Use Types [...] the past 12 months, has t he [employer], gas, oil or water [email or web address] threatened to shut off services in your [...] release tablet To be sent to: [facility] documented in this encounter Plan of Treatment Upcoming Encounters Date Type Department Care Team (Late st Contact Info) Description 11/05/2024 10:00 AM EDT Office Visit [facility] OPTOMETRY [address] [place], [place] [phone] 11/05/2024 11:00 AM EDT Medication Management [facility] MED[facility]INE [address] [place] [address] Nelia Sullivan, PharmD [address] [place] [address] 11/11/2024 1:00 PM EDT Office Visit [facility] MEDICINE [address] [place] [address] Vickie Penaloza MD [address] [place] [address] documented as of this encounter Goals Goal [...] as of this encounter Care Teams Human Resources Operations Director Relationship Specialty Start Date End Date Radha Jamison DO [address] [place] [address] PCP - General Family Medicine 01/26/12 Puia, Nelia, PharmD [address] [place] [address] Pharmacist Internal Medicine 08/31/23 Laurel Monterroso Ice House SupervisorImmunopathologist 10/27/22 Saige Aguilar 09/26/23 documented as of this encounter
--- OUTSIDE RECORDS SUMMARY | 2024-10-24 00:57 | XMS_ITS | Encounter Summary ---
Author Organization [employer] Address 75 [facility] 7t [place] [address] Care Team Providers Care Live Ammunition Inspector Name Role Phone Radha Jamison DO Primary Care Provider [phone]- [phone] Nelia Sullivan PharmD Unavailable [phone] Reason for Visit * Reason Onset Date Comments Med Refill 03/06/2024 Encounter Details Date Type Department Care Team (Late st Contact Info) Description 03/06/2024 Telephone [facility] MEDICINE [address] [place] [address] Radha Jamison DO [address] [place], [place] [phone] Med Refill Social History Tobacco Use Types [...] the past 12 months, has t he [employer], gas, oil or water [employer] threatened to shut off services in your [...] immediate release tablet To be sent to: [facility] pharmacy documented in this encounter Plan of Treatment Upcoming Encounters Date Type Department Care Team (Late st Contact Info) Description 11/05/2024 10:00 AM EDT Office Visit [facility] OPTOMETRY [address] [place], [place] [phone] 11/05/2024 11:00 AM EDT Medication Management [facility]ICINE [address] [place] [address] Nelia Sullivan, PharmD [address] [place] [address] 11/11/2024 1:00 PM EDT Office Visit [facility] [address] [place] [address] Vickie Penaloza MD [address] [place] [address] documented as of this encounter Goals Goal [...] documented as of this encounter Care Teams Live Ammunition Inspector Relationship Specialty Start Date End Date Radha Jamison DO [address] [place] [address] PCP - General Family Medicine 01/26/12 Puia, Nelia, PharmD [address] [place] [address] Pharmacist Internal Medicine 08/31/23 Laurel Monterroso Communications Tower ClimberPresident Finance Company 10/27/22 Saige Aguilar 09/26/23 documented as of this encounter
--- OUTSIDE RECORDS SUMMARY | 2024-10-24 00:57 | XMS_ITS | Encounter Summary ---
Author Organization [employer] Address 75 [facility] 7t [place] [address] Care Team Providers Care Bricklayer Tender Name Role Phone Radha Jamison DO Primary Care Provider [phone]- [phone] Abdias Murillo PharmD Unavailable Unavail able Nelia Sullivan PharmD Unavailable [phone] Reason for Visit * Reason Onset Date Comments Med Refill 10/18/2022 Encounter Details Date Type Department Care Team (Late st Contact Info) Description 10/18/2022 Telephone [facility] MEDICINE [address] [place] [address] Radha Jamison DO [address] [place], [place] [phone] Med Refill Social History Tobacco Use Types [...] PCP needed re:controlled medication. 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 Any questions, contact pt at [phone] (Turkmen) * Telephone Encounter - Acacia Chakraborty RN [...] 10:00 AM EDT Office Visit [facility] [address] [facility] [place] [phone] 11/05/2024 11:00 AM EDT Medication Management [facility] MEDICINE [address] [place] [address] Nelia Sullivan PharmD [address] [place] [address] 11/11/2024 1:00 PM EDT Office Visit [facility] MEDICINE [address] [place] [address] Vickie Penaloza MD [address] [place] [address] documented as of this encounter Goals Goal [...] documented as of this encounter Care Teams Bricklayer Tender Relationship Specialty Start Date End Date Radha Jamison DO [address] [place] [address] PCP - General Family Medicine 01/26/12 Abdias Murillo, PharmD [address] [place] [address] Pharmacist Internal Medicine 03/21/22 08/30/23 Nelia Sullivan PharmD [address] [place] [address] Pharmacist Internal Medicine 08/31/23 Laurel Monterroso Cigar Packer And ShaderHot Dip Plating Supervisor 10/27/22 Saige [facility] 09/26/23 documented as of this encounter
--- OUTSIDE RECORDS SUMMARY | 2024-10-24 00:57 | XMS_ITS | Encounter Summary ---
Author Organization [employer] Address 75 [facility] 7t [place] [address] Care Team Providers Care Hair Spinner Name Role Phone ShaheenRadha Primary Care Provider [phone]- [phone] Abdias Murillo PharmD Unavailable Unavail able Nelia Sullivan PharmD Unavailable [phone] Reason for Visit * Reason Onset Date Comments Dental Exam 08/24/2023 Encounter Details Date Type Department Care Team (Late st Contact Info) Description 08/24/2023 Telephone [facility] D[facility]AL [address] [place] [address] AlanisLibby Barton, DDS [address] [place] [address] Dental Exam Social History Tobacco Use Types [...] Description 11/05/2024 10:00 AM EDT Office Visit [facility] OPTOMETRY [address] [place] [address] 11/05/2024 11:00 AM EDT Medication Management [facility] MEDICINE [address] [place] [address] Nelia Sullivan, PharmD [address] [place] [address] 11/11/2024 1:00 PM EDT Office Visit [facility] MEDICINE [address] [place] [address] Vickie Penaloza MD 230 [place] [address] documented as of this encounter Goals Goal [...] documented as of this encounter Care Teams Hair Spinner Relationship Specialty Start Date End Date Radha Jamison DO 230 [facility] [place] [address] PCP - General Family Medicine 01/26/12 Abdias Murillo, PharmD [address] [place] [address] Pharmacist Internal Medicine 03/21/22 08/30/23 Nelia Sullivan, KeithD [address] [facility] [place] [address] Pharmacist Internal Medicine 08/31/23 Laurel Monterroso Assembler Mechanical OrdnanceWebsphere Portal Architect 10/27/22 Saige Aguilar 09/26/23 documented as of this encounter
--- OUTSIDE RECORDS SUMMARY | 2024-10-24 00:57 | XMS_ITS | Encounter Summary ---
Author Organization [employer] Address 75 [facility] 7t [place] [address] Care Team Providers Care Wage Conciliator Name Role Phone Radha Jamison DO Primary Care Provider +1- [phone] Abdias Murillo PharmD Unavailable Unavail able Nelia Sullivan PharmD Unavailable [phone] Encounter Details Date Type Department Care Team (Late st Contact Info) Description 06/15/2023 Orders Only [facility] MEDICINE [address] [place] [address] Radha Jamison DO [address] [place], [place] [phone] Stenosis of right carotid artery Social History [...] Office Visit [facility] OPTOMETRY [address] [place] [address] 11/05/2024 11:00 AM EDT Medication Management [facility] MEDICINE [address] [place] [address] Nelia Sullivan PharmD [address] [place] [address] 11/11/2024 1:00 PM EDT Office Visit [facility] MEDICINE [address] [place] [address] Vickie Penaloza MD [address] [place] [address] documented as of this encounter Goals Goal [...] documented as of this encounter Care Teams Wage Conciliator Relationship Specialty Start Date End Date Radha Jamison DO [address] [place] [address] PCP - General Family Medicine 01/26/12 Abdias Murillo, KeithD [address] [place] [address] Pharmacist Internal Medicine 03/21/22 08/30/23 Nelia Sullivan PharmD [address] [place] [address] Pharmacist Internal Medicine 08/31/23 Laurel Monterroso Floor Service Worker SpringUltrasound Coordinator 10/27/22 Saige Aguilar 09/26/23 documented as of this encounter
--- OUTSIDE RECORDS SUMMARY | 2024-10-24 00:57 | XMS_ITS | Clinical Summary ---
Author Organization [employer] Address [address] [facility] [address] [place] [address] Care Team Providers Care Flash Drier Operator Name Role Phone DenniseRadha broussard Primary Care Provider Nelia Sullivan PharmD Unavailable [phone] Allergies Active Allergy Reactions Criticality Noted [...] hyperglycemia, with long-term current use of insulin ([facility]) TAKE 1 TABLET BY MOUTH EVERY MORNING [...] 30 tablet 024 2024 Active Continuous Glucose Barrel Loader And Cleaner (FreeStyle Jenn 3 Grant) device 1 each 3 times daily. Use [...] each 025 2025 Active TRUEplus Lancets 33G [facility] TEST BLOOD SUGAR UP TO THREE TIMES [...] per 24 hours. 77 lozenge 5 Active escitalopram (Lexapro) 20 MG tabletIndications: Depression, unspecified depression type TAKE 1 TABLET BY MOUTH EVERY EVENING 30 tablet 5 Active amitriptyline (Elavil) 50 MG tabletIndications: Other chronic pain TAKE 1 TABLET BY MOUTH AT BEDTIME 30 tablet 3 Active mirtazapine (Remeron) 45 MG tabletIndications: Mood disorder ([facility]) TAKE 1 TABLET BY MOUTH AT BEDTIME 30 tablet 3 Active Ferrous Sulfate (iron) 325 (65 Fe) MG tabletIndications: Anemia, unspecified type TAKE 1 TABLET BY MOUTH TWICE DAILY IN THE MORNING AND AT BEDTIME 180 tablet 3 Active docusate sodium (Colace) 100 MG capsuleIndications :Anemia, unspecified type TAKE 1 CAPSULE BY MOUTH TWICE DAILY IN THE MORNING AND IN THE EVENING FOR CONSTIPATION 180 capsule Active ezetimibe (Zetia) 10 MG tablet Take 1 tablet (10 mg) by mouth Once per day. 90 tablet 1 025 Active rosuvastatin (Crestor) 40 MG tablet Take 1 tablet (40 mg) by mouth at bedtime. 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 025 Active aspirin (Aspirin Low Dose) 81 [...] EACH NOSTRIL ONCE DAILY 48 g 2 025 Active Diclofenac Sodium 1 % gel APPLY 2 GRAMS TOPICALLY TO AFFECTED AREA(S) 4 TIMES A DAY IN THE MORNING, AT NOON, IN THE EVENING, AND AT BEDTIME NEEDED FOR PAIN 200 g 2 025 Active varenicline (Chantix) 1 MG tabletIndications: Tobacco dependence Take 1 tablet (1 mg) by mouth 2 times daily. Take with full glass of water. 56 tablet 4 025 Active insulin pen needle (Pentips Generic Pen Udall) 32G x 4 mm miscIndications:Ty pe 2 diabetes mellitus with hyperglycemia, with long-term current use of insulin ([facility]) Use as instructed to inject insulin once daily 100 each 3 025 Active Semaglutide,0.25 or 0.5MG/DOS, (Ozempic, 0.25 or 0.5 MG/DOSE,) 2 MG/3ML solution pen-injectorIndica tions:Type 2 diabetes mellitus with hyperglycemia, with long-term current use of insulin ([facility]) Inject 0.5 mg under the skin 1 (one) time per week. 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 90 tablet 1 025 2025 Active gabapentin (NEURONTIN) 400 MG tabletIndications: Chronic bilateral low back pain, unspecified whether sciatica present Take 1 tablet (400 mg) by mouth at bedtime. 30 tablet 11 025 2025 Active Ventolin HFA 108 (90 Base) MCG/ACT inhalerIndications :Mild persistent asthma without complication INHALE 2 PUFFS BY MOUTH EVERY 6 HOURS NEEDED FOR WHEEZING OR SHORTNESS OF BREATH 18 g 2 025 Active gabapentin (Neurontin) 600 MG tablet Take [...] (pain). 150 g 3 025 2024 Discontinued albuterol 108 (90 Base) MCG/ACT inhalerIndications :Mild persistent asthma without complication Inhale 2 puffs every 6 (six) hours if needed for wheezing. 18 g 2 025 2024 Discontinued metFORMIN (Glucophage) 1000 MG tabletIndications: Type 2 diabetes mellitus with hyperglycemia, with long-term current use of insulin ([facility]) TAKE 1 TABLET BY MOUTH TWICE DAILY IN THE MORNING AND IN THE EVENING WITH FOOD 025 2024 Discontinued(M ed list cleanup (will not trigger notification to Pharmacy)) telmisartan (Micardis) 40 MG tabletIndications: Type 2 diabetes mellitus with hyperglycemia, with long-term current use of insulin ([facility]),Resistan t hypertension Take 1 tablet (40 mg) [...] artery disease of n ative artery of augustine heart with stable angina pectoris 10/03/2024 Assessment [...] B vaccine -pap wnl May 2014 with CUSTOMER CARE COORDINATOR, advised schedule f/u, contact info given -mammo [...] -she will meet w/ HIM RN re: 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 BELT SPLICER svcs Obstructive sleep apnea 12/04/2014 Tobacco dependence [...] the day and to continue care w jewelry model maker and PCP ------ Addendum : EMT 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 and 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 pt but once she was taken to ambulance pt decide not to go to ED and signed leave AMA 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 05/04/2020 03/18/2022 Encounters Date Type Department Care Team Description 10/24/2024 Orders Only GENERIC EXTERNAL DATA DEPARTMENT Provider, Generic External Data 10/21/2024 Refill [facility] [address] [place] [address] Radha Jamison DO Mild persistent asthma without complication 10/18/2024 Patient Outreach [address] [address] Radha Jamison DO Transition Of Care (Tcm) (HDF scheduled) 10/15/2024 Orders Only GENERIC EXTERNAL DATA DEPARTMENT Provider, Generic External Data 10/07/[address] [address] Radha Jamison DO Nurse Triage 10/03/2024 9:30 AM EDT Office Visit [address] [address] Vickie Penaloza MD Type 2 diabetes mellitus with hyperglycemia, with long-term current use of insulin ([facility]) (Primary Dx); Splenic infarct; 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 ([facility]); Chronic bilateral low back pain, unspecified whether sciatica present 10/03/2024 Travel 10/02/2024 Telephone [facility] [address] [place] [address] Radha Jamison DO chart prep 10/02/2024 Refill [facility] [address] [place] [phone] Radha Jamison DO Mood disorder ([facility]/HCC) 10/01/2024 Refill [facility] [address] [place], [place] [phone] Radha Jamison DO Hypertension, unspecified type 09/24/2024 Orders Only GENERIC EXTERNAL DATA DEPARTMENT Provider, Generic External Data 09/24/2024 Travel 09/22/2024 Refill [facility] [address] [place] [address] Radha Jamison DO 09/19/[address] [address] Radha Jamison DO Nurse Triage 09/19/[address] [address] Radha Jamison DO Nurse Triage 09/11/2024 Patient Outreach [address] [address] Radha Jamison DO Transition Of Care (Tcm) (HDF- Scheduled ) 09/10/2024 Refill [facility] [address] [place] [phone] Radha Jamison DO 09/09/2024 Refill [facility] [address] [place] [address] Radha Jamison DO Hypertension, unspecified type 09/03/2024 Travel 09/02/2024 Patient Outreach [address] [address] Radha Jamison DO Transition Of Care (Tcm) (HDF- Unscheduled LVM ) 09/02/[address] [address] Patricia Rinaldi, PharmD 08/23/[address] [address] Radha Jamison DO Appointment Request 08/13/2024 Travel 08/08/2024 Orders Only GENERIC EXTERNAL DATA DEPARTMENT Provider, Generic External Data 08/07/[address] [address] Radha Jamison DO Nurse Triage 07/24/2024 4:00 PM EDT Office Visit [address] [address] Crystal Merino MD Left leg swelling (Primary Dx); Left hip pain; Dietary counseling; Exercise counseling; Overweight; Peripheral arterial disease ([facility]); Status post femoral-popliteal bypass surgery; Type 2 diabetes mellitus with hyperglycemia, with long-term current use of insulin ([facility]); Chronic bilateral low back pain with left-sided sciatica; Spinal stenosis of lumbar region, unspecified whether neurogenic claudication present 07/24/2024 Orders Only [facility] [address] [place] [address] Radha Jamison, 07/24/2024 Telephone [facility] [address] [place] [address] Radha Jamison, No Show (Pt no show for sick on site ) from Last 3 Months Immunizations Immunization Administration [...] Description 11/05/2024 10:00 AM EDT Office Visit [facility] [address] [place], [place] [phone] 11/05/2024 11:00 AM EDT Medication Management [facility] [address] [place] [address] Nelia Sullivan, PharmD [address] [place], [place] [phone] 11/11/2024 1:00 PM EDT Office Visit [facility] [address] [facility] [address] Vickie Penaloza MD [address] [place] [address] Health Maintenance Due Date Last Done Comments [...] Depression Monitoring 06/19/2024 12/21/2023, 024 COVID-19 Vaccine (2 - season) 2024 10/02/2020 Influenza Vaccine (#1) 2024 [...] Diagnosis Comments CBC WITH AUTO DIFFERENTIAL Routine 10/24/2024 12:49 AM EDT VASC US CAROTID ARTERY DUPLEX BILATERAL Routine [...] hyperglycemia, with long-term current use of insulin ([facility]) BASIC METABOLIC PANEL Routine 09/24/2024 11:19 AM EDT POCT GLYCATED HEMOGLOBIN, TOTAL Routine 09/03/2024 4:57 PM EDT Type 2 diabetes mellitus with hyperglycemia, with long-term current use of insulin ([facility]) BASIC METABOLIC PANEL Routine 08/08/2024 12:01 PM [...] Relevant to Health Maintenance Results * (ABNORMAL) CBC auto differential (10/24/2024 12:49 AM EDT) White Blood Count 8.2 4.8 - 10.8 X10*3/uL [facility] Red Blood Count 3.57(L) 4.20 - 5.50 X10*6/uL [facility] Hemoglobin 10.5(L) 12.0 - 16.0 g/dl [facility] Hematocrit 30.8(L) 37.0 - 47.0 % [facility] Mean Corpuscular Volume 86.3 80.0 - 98.0 fL [facility] Mean Corpuscular Hemoglobin 29.4 27.0 - 33.0 pg [facility] Mean Corpuscular HGB Conc 34.1 31.0 - 35.0 g/dl [facility] Red Cell Distribution Width 14.3 11.0 - 16.0 % [facility] Platelet Count 287 160 - 400 X10*3/uL [facility] Mean Platelet Volume 9.3(L) 9.4 - 12.3 fL [facility] Neutrophils Percent Auto 67.2 45 - 73 % [facility] Imm Gran Pct Auto 0.4 0.0 - 0.4 % [facility] Lymphocytes Percent Auto 22.4 20 - 40 % [facility] Monocytes Percent Auto 6.0 2 - 11 % [facility] Eosinophils Percent Auto 3.5 0 - 4 % [facility] Basophils Percent Auto 0.5 0 - 2 % [facility] NRBC Pct Auto 0.0 0.0 - 0.2 /100WBC [facility] Neutrophils Absolute Auto 5.5 2.0 - 8.3 x10*3/uL [facility] Imm Gran Abs Auto 0.03 0.00 - 0.03 X10*3/uL [facility] Lymphocytes Absolute Auto 1.8 1.2 - 4.9 X10*3/uL [facility] Monocytes Absolute Auto 0.5 0.1 - 1.2 X10*3/uL [facility] Eosinophils Absolute Auto 0.3 0.0 - 0.4 X10*3/uL [facility] Basophils Absolute Auto 0.0 0.0 - 0.2 X10*3/uL [facility] NRBC Abs Auto 0.000 0.0 - 0.012 X10*3/uL [facility] 10/24/2024 12:4 9 AM EDT 10/24/2024 12:51 AM EDT us Generic External Data Provider LAB BLOOD ORDERAB LES Final Result [facility] [address] [place] [phone] * [facility] Bilateral (10/15/2024 1:19 PM EDT) 10/15/2024 1:19 PM EDT Narrative [facility] - 10/15/2024 2:54 PM EDT [address] [address] Ultrasound Report Signed Patient: Rocío Hallman MR#: [id number] 087 : 1960 Acct:[id number] Age/Sex: 63 / F ADM Date: 10/15/24 Loc: [facility]: Alan Lopez MD Ordering Physician: Caleb Aragon MD Date of Service: 10/15/24 Procedure(s): US carotid duplex BI Accession Number(s): [id number] cc: [facility]; Caleb Aragon MD Reason for Exam: [...] Sam Early MD 10/15/2024 02:51 PM EDT RP Dictated By: Sam Rhodes MD Signed By: <Electronically signed by Sam Tomlinson MD in OV> 10/15/24 1451 DD/ 1319 TD/TT: 10/15/24 1342 Insurance Adjuster: Procedure Note Donotuseinterpreter, Image - 10/15/[address] [address] Ultrasound Report Signed Patient: Rocío HallmanMR#: [id number] 087 : 1960cct:[id number] Age/Sex: 63 / FADM Date: 10/15/24 Loc: [facility]: Alan Lopez MD Ordering Physician: Caleb Aragon MD Date of Service: 10/15/24 Procedure(s): US carotid duplex BI Accession Number(s): [id number] cc: [facility]; Caleb Aragon MD Reason for Exam: [...] 10/15/24 1451 DD/ 1319 TD/TT: 10/15/24 1342 Insurance Adjuster: us [facility] External Provider CV VASC ULAR PROCEDURES Final Result [facility] [address] [place] [phone] * CTA Head Neck w/ and w/o Contrast (10/15/2024 6:06 AM EDT) Anatomical Region Laterality Modality Head, Neck Computed Tomogra phy 10/15/2024 6:06 AM EDT Narrative 10/15/2024 6:08 AM EDT [address] [address] [address] Scan Report Signed with Addenda Patient: Rocío Hallman MR#: [id number] 087 : 1960 Acct:[id number] Age/Sex: 63 / F ADM Date: 10/15/24 Loc: HO.ED Attending Dr: Ordering Physician: Cornelia Clark DO Date of Service: 10/15/24 Procedure(s): CT angio head neck Accession Number(s): [id number] cc: Cornelia Clark DO; [facility] Report Number: [id number]: Total DLP = 1340.00 mGy-cm ADDENDUM This [...] Casarez MD in OV> 10/15/24 06 DD/ 06 TD/TT: 10/15/24 06 Insurance Adjuster: Procedure Note Donotuseinterpreter, Image - 10/15/[address] [address] [address] Scan Report Signed with Rosendo Patient: Rocío HallmanMR#: [id number] 087 : 2Acct:[id number] Age/Sex: 63 / FADM Date: 10/15/24 Loc: HO.ED Attending Dr: Ordering Physician: Cornelia Clark DO Date of Service: 10/15/24 Procedure(s): CT angio head neck Accession Number(s): [id number] cc: Cornelia Clark DO; [facility] Report Number: [id number]: Total DLP = 1340.00 mGy-cm ADDENDUM This document has been electronically signed by: Amanda Casarez MD on 10/15/2024 06:06:25 ADDENDUM: This report was discussed with Cornelia Clark MD on Oct 15, 2024 06:09:00 EDT. This document has been electronically signed by: Ysa Srivastava on 10/15/2024 06:09:58 Addendum Dictated By: Amanda Casarez MD Addendum Signed By: <Electronically signed by Amanda Casarez MDin OV> 10/15/24 0610 Addendum Cosigned By: DD/ [...] in OV> 10/15/24 06 DD/ 5 TD/TT: 10/15/24 06 Insurance Adjuster: [facility] External Provider IMG CT PROCEDURES Edited Result - Final * XR Chest 1 View (10/15/2024 4:29 AM EDT) Anatomical Region Laterality Modality Chest Radiographic Samantha ging 10/15/2024 4:29 AM EDT Narrative 10/15/2024 4:30 AM EDT [address] [address] XRay Report Signed Patient: Rocío Hallman MR#: [id number] 087 : 1960 Acct:[id number] Age/Sex: 63 / F ADM Date: 10/15/24 Loc: HO.ED Attending Dr: Ordering Physician: Cornelia Clark DO Date of Service: 10/15/24 Procedure(s): XR chest 1V Accession Number(s): [id number] cc: Cornelia Clark DO; [facility] CLINICAL HISTORY: chest pain 1 view [...] in OV> 10/15/24429 DD/ 8 TD/TT: 10/15/24428 Insurance Adjuster: Procedure Note Donotuseinterpreter, Image - 10/15/2024 [place] [address] XRay Report Signed Patient: Rocío HallmanMR#: [id number] 087 : 1960cct:[id number] Age/Sex: 63 / FADM Date: 10/15/24 Loc: .ED Attending Dr: Ordering Physician: Cornelia Clark DO Date of Service: 10/15/24 Procedure(s): XR chest 1V Accession Number(s): [id number] cc: Cornelia Clark DO; [facility] CLINICAL HISTORY: chest pain 1 view [...] in OV> 10/15/24429 DD/ 8 TD/TT: 10/15/24428 Insurance Adjuster: [facility] External Provider IMG XR PROCEDURES Edited Result - Final * High Sensitivity Troponin I (10/15/2024 2:37 AM EDT) [facility] TROPONIN I HIGH SENSITIVITY 7.6 <3.5 - 17.0 ng/L [facility] Comment:The Ibrahim high sens itivity Troponin-I results should beused in conjunction with other diagnostic information suchas ECG, clinical observations and information, and patientsymptoms to aid in the diagnosis of [place]. 10/15/2024 2:37 AM EDT 10/15/2024 2:41 AM EDT Generic External Data Provider LAB BLOOD ORDERAB LES Final Result Performing Organization Address [facility]/ZIP Co de Phone Number [facility] [address] [place] [phone] * Magnesium (10/15/2024 2:37 AM EDT) [facility] Magnesium 2.0 1.6 - 2.6 mg/dL [facility] 10/15/2024 2:37 AM EDT 10/15/2024 2:41 AM EDT Generic External Data Provider LAB BLOOD ORDERAB LES Final Result Performing Organization Address [facility]/ZIP Co de Phone Number [facility] [address] [place] [phone] * (ABNORMAL) Comprehensive Metabolic Panel (10/15/2024 2:37 AM EDT) [facility] Sodium 140 135 - 145 mmol/L [facility] Potassium 3.9 3.3 - 5.1 mmol/L [facility] Chloride 107 96 - 108 mmol/L [facility] Carbon Dioxide 25 22 - 29 mmol/L [facility] Anion Gap 12 12 - 20 [facility] Urea Nitrogen (BUN) 23(H) 9 - 16 mg/dL [facility] Creatinine, Serum 1.09 0.5 - 1.4 mg/dL [facility] Creatinine Clr Calc Pharmacy 43.7 [facility] Comment:Provided height and weight: 152.4 cm,61.235 kg.eGFR (calculated from the MDRD study equation) and eCrCl(calculated from the Cockcroft-Gault equation) are based ondifferent parameters and may not yield comparable results.If eCrCl result is absurd, please check patient'sheight/weight. Estimated Glomerular Filt Rate 51 [facility] Comment:Chronic Kidney Disea se: Estimated GFR < 60 mL/min/1.40u2Uwfxui Kidney Disease: Estimated GFR < 15 mL/min/1.73m2 Glucose 399(HH) 60 - 115 mg/dL [facility] Comment:Critical value for t est(s): GLUCR Results called to selvin back by: CAMELIA Person calling: VYASRID Date: [id number]:304 Calcium 8.2(L) 8.4 - 10.2 mg/dL [facility] Bilirubin, Total 0.2 0.0 - 1.0 mg/dL [facility] Aspartate Amino Transferase 14 5 - 31 U/L [facility] Alanine Aminotransferase 7 0 - 31 U/L [facility] Total Protein 5.5(L) 6.5 - 8.0 g/dL [facility] Albumin Level 2.7(L) 3.5 - 5.0 g/dL [facility] Alkaline Phosphatase 97 39 - 117 U/L [facility] 10/15/2024 2:37 AM EDT 10/15/2024 2:41 AM EDT us Generic External Data Provider LAB BLOOD ORDERAB LES Final Result [facility] [address] [place] [phone] * (ABNORMAL) POCT Glucose (10/03/2024 9:39 AM EDT) Glucose Blood, POC 258(A) 60 - 200 mg/dL QC Media Lot # [id number] Lot# Expiration Date [id number] Blood Capillary blood specimen / Unknown 10/03/2024 9:39 AM EDT us Vickie Syed MD POINT OF CARE TEST EN TER/EDIT ORDERABLES Final Result * (ABNORMAL) Basic Metabolic Panel (09/24/2024 11:19 AM EDT) Only the most recent of3 resultswithin the time period is included. Sodium 139 135 - 145 mmol/L [facility] Potassium 3.9 3.3 - 5.1 mmol/L [facility] Chloride 105 96 - 108 mmol/L [facility] Carbon Dioxide 28 22 - 29 mmol/L [facility] Anion Gap 10(L) 12 - 20 [facility] Urea Nitrogen (BUN) 11 9 - 16 mg/dL [facility] Creatinine, Serum 1.02 0.5 - 1.4 mg/dL [facility] Estimated Glomerular Filt Rate 55 [facility] Comment:Chronic Kidney Disea se: Estimated GFR < 60 mL/min/1.25a2Vbwkcn Kidney Disease: Estimated GFR < 15 mL/min/1.73m2 Glucose 337(H) 60 - 115 mg/dL [facility] Calcium 8.1(L) 8.4 - 10.2 mg/dL [facility] 09/24/2024 11:1 9 AM EDT 09/24/2024 1:21 PM EDT us Generic External Data Provider LAB BLOOD ORDERAB LES Final Result [facility] [address] [place] [phone] * (ABNORMAL) POCT HGB A1C (09/03/2024 4:57 PM EDT) Hemoglobin A1C 10.1(A) 4.0 - 5.7 % Blood 09/03/2024 4:57 PM EDT Radha Jamison DO POINT OF CARE TEST ENTER/BHARGAVI T ORDERABLES Final Result * B Type Natriuretic Peptide (BNP) (08/08/2024 12:01 PM EDT) B Type Natriuretic Peptide 96 <100 pg/mL [facility] Blood Venous blood specimen / Unknown 08/08/2024 12:01 PM EDT 08/08/2024 12:59 PM EDT Crystal Merino MD LAB BLOOD ORDERABLES Final Res ult Performing Organization Address City/State/[facility] Co de Phone Number [facility] [address] [place] [phone] * XR Hip 2 or 3 Views Left (08/08/2024 11:32 AM EDT) Anatomical Region Laterality Modality Lower Extremities, Hip Left Radiograp hic Imaging 08/08/2024 11:3 2 AM EDT Narrative 08/08/2024 12:55 PM EDT [address] [address] XRay Report Signed Patient: Rocío Hallman MR#: [id number] 087 : 1960 Acct:[id number] Age/Sex: 63 / F ADM Date: 08/08/24 Loc: HO.HHCX Attending Dr: Radha Jamison DO Ordering Physician: Crystal Merino Date of Service: 08/08/24 Procedure(s): XR hip LT min 2V Accession Number(s): [id number] cc: Crystal Merino; Radha Jamison DO EXAMINATION: [...] 08/08/24 1252 DD/ 1132 TD/TT: 08/08/24 1220 Insurance Adjuster: Procedure Note Donotuseinterpreter, Image - 08/08/[address] [address] XRay Report Signed Patient: Rocío HallmanMR#: [id number] 087 : 2Acct:[id number] Age/Sex: 63 / FADM Date: 08/08/24 Loc: HO.HHCX Attending Dr: Radha Jamison DO Ordering Physician: Crystal Merino Date of Service: 08/08/24 Procedure(s): XR hip LT min 2V Accession Number(s): [id number] cc: Crystal Merino; Radha Jamison DO EXAMINATION: [...] 08/08/24 1252 DD/ 1132 TD/TT: 08/08/24 1220 Insurance Adjuster: us Crystal Merino MD IMG XR PROCEDURES Final Result * (ABNORMAL) Hepatic Function Panel (07/24/2024 10:41 AM EDT) Bilirubin, Total 0.2 0.0 - 1.0 mg/dL [facility] Bilirubin, Direct <0.2 0.0 - 0.5 mg/dL [facility] Aspartate Amino Transferase 13 5 - 31 U/L [facility] Alanine Aminotransferase <6 0 - 31 U/L [facility] Total Protein 5.7(L) 6.5 - 8.0 g/dL [facility] Albumin Level 3.1(L) 3.5 - 5.0 g/dL [facility] Alkaline Phosphatase 87 39 - 117 U/L [facility] 07/24/2024 10:4 1 AM EDT 07/24/2024 10:41 AM EDT us Radha Jamison DO LAB BLOOD ORDERABLES Final R esult [facility] [address] [place] [phone] * (ABNORMAL) Lipid Panel, Standard (07/24/2024 10:41 AM EDT) Triglycerides 157(H) <150 mg/dL [facility] Comment:Desirable Triglyceri de: less than 150 mg/dLBorderline High Triglyceride 150-199 mg/dLHigh Triglyceride: 200-499 mg/dLVery High Triglyceride: greater than or equal to 5OO mg/dL Cholesterol 234(H) <200 mg/dL [facility] Comment:Desirable Cholestero l: less than 200 mg/dLBorderline High Cholesterol: 200-239 mg/dLHigh Cholesterol: greater than 239 mg/dL LDL Cholesterol Calculated 159(H) <100 mg/dL [facility] LABS Comment:Desirable LDL: less than 100 mg/dLNear Optimal/Above Optimal LDL: 110- 129 mg/dLBorderline High LDL: 130-159 mg/dLHigh LDL: 160-189 mg/dLVery High LDL: greater than or equal to 190 mg/dL HDL Cholesterol 44 >40 mg/dL [facility] Comment:Desirable HDL: great er than 40 mg/dL Note: This HDL assay may give artificially low results in patients with liver disease. 07/24/2024 10:4 1 AM EDT 07/24/2024 10:41 AM EDT us Radha Jamison DO LAB BLOOD ORDERABLES Final R esult Performing Organization Address [facility] Co de Phone Number [facility] [address] [place] [phone] * (ABNORMAL) Albumin, Random Urine W/Creatinine (05/15/2023 8:20 AM EDT) Creatinine, Urine 105.69 mg/dL [facility] Microalbumin Urine 1,418.0 mg/L H [facility] Microalbum Creatinine Ratio Ur 1,341.6(H ) <30 ug/mg cr [facility] Comment:Albumin/Creatinine R atio Reference Ranges: Normal: < 30 ug/mg creatinine Microalbuminuria: 30 - 300 ug/mg creatinineClinical Albuminuria: > 300 ug/mg creatinine Urine (Urine, Random) 05/15/2023 8:20 AM EDT 05/15/2023 8:31 AM EDT us Radha Jamison DO LAB URINE ORDERABLES Final R esult Performing Organization Address [facility] Co de Phone Number [facility] [address] [place] [address] [phone] * Hepatitis C Antibody with Reflex to HCV RNA,PCR w/Reflex to Genotype, LiPA (08/08/2022 10:44 AM EDT) Hepatitis C Antibody NON-REACT ROMERO NON-REACT ROMERO [facility] Comment: HCV antibody was non-reactive. There is no laboratory evidence of HCV infection. In most cases, no further action is required. However, if recent HCV exposure is suspected, a test for HCV RNA (test code 80089) is suggested. For additional information, please refer to http://[employer].[email or web address]/faq/ERL761 (This link is being provided for informational/ educational purposes only.) 08/08/2022 10:4 4 AM EDT 08/08/2022 10:45 AM EDT Narrative [facility] - 08/09/2022 7:27 PM EDT FASTING:YES COLLECTION KIT GIVEN TO PATIENT. PATIENT ADVISED TO RETURN. FASTING: YES us Radha Jamison DO LAB BLOOD ORDERABLES Final R esult [facility] [address], [place] [address] [facility] [employer] [address] [place] [address] * HIV-1/2 Antigen and Antibodies, Fourth Generation, with Reflexes (08/08/2022 10:44 AM EDT) HIV Antigen/Antibody, 4th Generation NON-REAC TIVE NON-REAC TIVE [facility] [place] [employer] Comment: HIV-1 antigen and HIV-1/HIV-2 antibodies were [...] purpose. For additional information please refer to http://[employer].Züm XR/faq/ZWS300 (This link is being provided for informational/ [...] BLOOD ORDERABLES Final R esult [facility] [address], [place] [address] [facility] [address] [place] [address] * Mammography Report 1 (10/06/2021 1:35 PM [...] Most Recently Relevant to Health Maintenance Insurance [facility] [place] [id number] * Guarantor: Rocío Hallman Account Type Relation to Patient Date of Phone Billing Address Personal/Family Self 1960 [address] [place] [id number] * Guarantor: Rocío Hallman Account Type Relation to Patient Date of Phone Billing Address Personal/Family Self 1960 [address] [place] [id number] * Guarantor: Rocío Hallman Account Type Relation to Patient Date of Phone Billing Address Personal/Family Self 1960 [address] [place] [address] Care Teams Flash Drier Operator Relationship Specialty Start Date End Date Radha Jamison DO [address] [facility] [place] [address] PCP - General Family Medicine 01/26/12 Nelia Sullivan, Camron 230 [place] [address] Pharmacist Internal Medicine 08/31/23 Laurel Monterroso Computer TesterInsurance Counsel 10/27/22 Saige Aguilar 09/26/23
--- OUTSIDE RECORDS SUMMARY | 2024-10-24 00:58 | XMS_ITS | Encounter Summary ---
Author Organization [employer] Address 75 [facility] 7t [place] [address] Care Team Providers Care Undercollar Baster Name Role Phone Radha Jamison DO Primary Care Provider Abdias Murillo PharmD Unavailable Unavail able Nelia Sullivan PharmD Unavailable [phone] Reason for Visit * Reason Comments Med Refill Encounter Details Date Type Department Care Team (Late Contact Info) Description 07/20/[address] [facility] [address] [place] [address] Radha Jamison DO 230 [place] [address] Hypertension, unspecified type Social History Tobacco Use [...] 11/05/2024 10:00 AM EDT Office Visit [facility] OPTOMETRY [address] [place], [place] [phone] 11/05/2024 11:00 AM EDT Medication Management [facility] MEDICINE [address] [place] [address] Nelia Sullivan, PharmD 230 [place] [address] 11/11/2024 1:00 PM EDT Office Visit [facility] MEDICINE [address] [place] [address] Vickie Penaloza MD 230 [place] [address] documented as of this encounter Goals Goal [...] documented as of this encounter Care Teams Undercollar Baster Relationship Specialty Start Date End Date Radha Jamison DO [address] [place] [address] PCP - General Family Medicine 01/26/12 Abdias Murillo, PharmD [address] [place] [address] Pharmacist Internal Medicine 03/21/22 08/30/23 Nelia Sullivan, PharmD [address] [place] [address] Pharmacist Internal Medicine 08/31/23 Laurel Monterroso Carrier BlowerTrim Attacher 10/27/22 Saige Aguilar 09/26/23 documented as of this encounter
--- OUTSIDE RECORDS SUMMARY | 2024-10-24 00:58 | XMS_ITS | Encounter Summary ---
Author Organization [employer] Address [address] [facility] [address] 7t [place] [address] Care Team Providers Care Electrotherapist Name Role Phone Radha Jamison DO Primary Care Provider +1- [phone] Nelia Sullivan PharmD Unavailable [phone] Encounter Details Date Type Department Care Team ([facility] st Contact Info) Description 01/30/2024 Telephone [facility] CHC MED & PEDS [address] [place], [place] [phone] Radha Jamison DO 230 [facility] [place] [address] Social History Tobacco Use Types Packs/Day Years [...] Visit [facility] OPTOMETRY [address] [place], [place] [phone] 11/05/2024 11:00 AM EDT Medication Management [facility] MEDICINE 230 [place] [address] Nelia Sullivan, PharmD 230 [place] [address] 11/11/2024 1:00 PM EDT Office Visit [facility] MEDICINE [address] [place] [address] Vickie Penaloza MD 230 [place] [address] documented as of this encounter Goals Goal [...] documented as of this encounter Care Teams Electrotherapist Relationship Specialty Start Date End Date Radha Jamison DO 230 [place] [address] PCP - General Family Medicine 01/26/12 Nelia Sullivan, PharmD 230 [place] [address] Pharmacist Internal Medicine 08/31/23 Laurel Monterroso E Mail System AdministratorPicture Enlarger 10/27/22 Saige Aguilar 09/26/23 documented as of this encounter
--- OUTSIDE RECORDS SUMMARY | 2024-10-24 00:58 | XMS_ITS | Encounter Summary ---
Author Organization [employer] Address 75 [facility] 7t [place] [address] Care Team Providers Care Residential Support Worker Name Role Phone Radha Jamison DO Primary Care Provider +1- [phone] Abdias Murillo PharmD Unavailable Unavail able Nelia Sullivan PharmD Unavailable [phone] Reason for Visit * Reason Onset Date Comments Appointment Request 03/09/2023 Encounter Details Date Type Department Care Team ([facility] st Contact Info) Description 03/09/2023 Telephone [facility] MEDICINE [address] [place] [address] Radha Jamison DO 230 [place] [address] Appointment Request Social History Tobacco Use Types [...] denied any concerns. Please contact pt at [phone] documented in this encounter Plan of Treatment Upcoming Encounters Date Type Department Care Team (Late st Contact Info) Description 11/05/2024 10:00 AM EDT Office Visit [facility] OPTOMETRY [address] [place], [place] [phone] 11/05/2024 11:00 AM EDT Medication Management [facility] MEDICINE [address] [place] [address] Nelia Sullivan, PharmD [address] [place] [address] 11/11/2024 1:00 PM EDT Office Visit [facility] MEDICINE [address] [place] [address] Vickie Penaloza MD [address] [place] [address] documented as of this encounter Goals Goal [...] as of this encounter Care Teams Residential Support Worker Relationship Specialty Start Date End Date Radha Jamison DO [address] [place] [address] PCP - General Family Medicine 01/26/12 Abdias Murillo, PharmD [address] [place] [address] Pharmacist Internal Medicine 03/21/22 08/30/23 Nelia Sullivan PharmD [address] [place] [address] Pharmacist Internal Medicine 08/31/23 Laurel Monterroso Shoelace Tipping Machine OperatorJournal Box Inspector 10/27/22 Saige Aguilar 09/26/23 documented as of this encounter
--- OUTSIDE RECORDS SUMMARY | 2024-10-24 00:58 | XMS_ITS | Encounter Summary ---
Author Organization [employer] Address 75 [facility] 7t [place] [address] Care Team Providers Care Spinner Operator Name Role Phone Radha Jamison DO Primary Care Provider +1- [phone] Abdias Murillo PharmD Unavailable Unavail able Nelia Sullivan PharmD Unavailable [phone] Reason for Visit * Reason Comments Med Refill Encounter Details Date Type Department Care Team (Late st Contact Info) Description 02/15/2023 Refill [facility] MEDICINE 230 [place] [address] Radha Jamison DO [address] [place] [address] Chronic bilateral low back pain, unspecified whether [...] 10:00 AM EDT Office Visit [facility] OPTOMETRY [address] [place] [address] 11/05/2024 11:00 AM EDT Medication Management [facility] MEDICINE [address] [place] [address] Nelia Sullivan PharmD [address] [place] [address] 11/11/2024 1:00 PM EDT Office Visit [facility] MEDICINE [address] [place] [address] Vickie Penaloza MD [address] [place] [address] documented as of this encounter Goals Goal [...] documented as of this encounter Care Teams Spinner Operator Relationship Specialty Start Date End Date Radha Jamison DO [address] [place] [address] PCP - General Family Medicine 01/26/12 Abdias Murillo, KeithD 230 [place] [address] Pharmacist Internal Medicine 03/21/22 08/30/23 Nelia Sullivan PharmD [address] [place] [address] Pharmacist Internal Medicine 08/31/23 Laurel Monterroso Pararescue CraftsmanMedical Office Professional Instructor 10/27/22 Saige Aguilar 09/26/23 documented as of this encounter
--- OUTSIDE RECORDS SUMMARY | 2024-10-24 00:58 | XMS_ITS | Encounter Summary ---
Author Organization [employer] Address 75 [facility] 7t [place] [address] Care Team Providers Care Clamp Carrier Operator Name Role Phone Radha Jamison DO Primary Care Provider Abdias Murillo PharmD Unavailable Unavail able Nelia Sullivan PharmD Unavailable [phone] Reason for Visit * Reason Comments Med Refill Encounter Details Date Type Department Care Team (Late st Contact Info) Description 06/10/2022 Refill [facility] MEDICINE [address] [place] [address] Radha Jamison DO 230 [place] [address] Chronic bilateral low back pain, unspecified whether [...] Description 11/05/2024 10:00 AM EDT Office Visit [facility] OPTOMETRY [address] [place], [place] [phone] 11/05/2024 11:00 AM EDT Medication Management [facility] MEDICINE [address] [place] [address] Nelia Sullivan, PharmD 230 [place] [address] 11/11/2024 1:00 PM EDT Office Visit [facility] MEDICINE [address] [place] [address] Vickie Penaloza MD [address] [place] [address] documented as of this encounter Goals Goal [...] documented as of this encounter Care Teams Clamp Carrier Operator Relationship Specialty Start Date End Date [place] [address] PCP - General Family Medicine 01/26/12 Abdias Murillo, PharmD [address] [place] [address] Pharmacist Internal Medicine 03/21/22 08/30/23 Nelia Sullivan PharmD [address] [place] [address] Pharmacist Internal Medicine 08/31/23 Laurel Monterroso Industrial HygienistPanel Edge Painter 10/27/22 Saige Aguilar 09/26/23 documented as of this encounter
--- OUTSIDE RECORDS SUMMARY | 2024-10-24 00:58 | XMS_ITS | Encounter Summary ---
Author Organization [employer] Address 75 [facility] 7t [place] [address] Care Team Providers Care Technical Systems Architect Name Role Phone Radha Jamison DO Primary Care Provider +1- [phone] Nelia Sullivan PharmD Unavailable [phone] Reason for Visit * Reason Comments Med Refill Encounter Details Date Type Department Care Team ([facility] st Contact Info) Description 10/30/2023 Refill [facility] MEDICINE [address] [place], [place] [phone] Radha Jamison DO 230 [place] [address] Chronic bilateral low back pain, unspecified whether [...] Description 11/05/2024 10:00 AM EDT Office Visit [facility] OPTOMETRY [address] [place], [place] [phone] 11/05/2024 11:00 AM EDT Medication Management [facility] MEDICINE [address] [place] [address] Felice Sullivanyssa, PharmD [address] [place] [address] 11/11/2024 1:00 PM EDT Office Visit [facility] MEDICINE [address] [place] [address] Vickie Penaloza MD [address] [place], [place] [phone] documented as of this encounter Goals Goal [...] documented as of this encounter Care Teams Technical Systems Architect Relationship Specialty Start Date End Date Radha Jamison DO [address] [place] [address] PCP - General Family Medicine 01/26/12 Nelia Sullivan, PharmD [address] [place] [address] Pharmacist Internal Medicine 08/31/23 Laurel Monterroso Clinical Trial AssistantLaboratory Administrative Director 10/27/22 Saige Aguilar 09/26/23 documented as of this encounter
--- OUTSIDE RECORDS SUMMARY | 2024-10-24 00:58 | XMS_ITS | Encounter Summary ---
Author Organization [employer] Address 75 [facility] 7t [place] [address] Care Team Providers Care Cipher Expert Name Role Phone Radha Jamison DO Primary Care Provider [phone]- [phone] Nelia Sullivan PharmD Unavailable [phone] Reason for Visit * Reason Comments Med Refill Encounter Details Date Type Department Care Team ([facility] st Contact Info) Description 11/21/[address] [facility] MEDICINE [address] [place], [place] [phone] Radha Jamison DO [address] [place] [address] Chronic bilateral low back pain, unspecified whether [...] AM EDT Office Visit [facility] OPTOMETRY [address] [place], [place] [phone] 11/05/2024 11:00 AM EDT Medication Management [facility] MEDICINE [address] [place] [address] Felice Sullivanyssa, PharmD [address] [place] [address] 11/11/2024 1:00 PM EDT Office Visit [facility] MEDICINE [address] [place] [address] Vickie Penaolza MD [address] [place], [place] [phone] documented as of this encounter Goals Goal [...] documented as of this encounter Care Teams Cipher Expert Relationship Specialty Start Date End Date Radha Jamison DO [address] [place] [address] PCP - General Family Medicine 01/26/12 Nelia Sullivan, PharmD [address] [place] [address] Pharmacist Internal Medicine 08/31/23 Laurel Monterroso Qa TesterPig Conveyor Operator 10/27/22 Saige Aguilar 09/26/23 documented as of this encounter
--- OUTSIDE RECORDS SUMMARY | 2024-10-24 00:58 | XMS_ITS | Encounter Summary ---
Author Organization [employer] Address 75 [facility] 7t [place] [address] Care Team Providers Care Lacquer Pin Press Operator Name Role Phone Radha Jamison DO Primary Care Provider +1- [phone] Abdias Murillo PharmD Unavailable Unavail able Nelia Sullivan PharmD Unavailable [phone] Reason for Visit * Reason Comments Med Refill Encounter Details Date Type Department Care Team (Late st Contact Info) Description 03/14/2023 Refill [facility] MEDICINE 230 [place] [address] Radha Jamison DO 230 [place] [address] Chronic bilateral low back pain, unspecified whether [...] Office Visit [facility] OPTOMETRY [address] [place] [address] 11/05/2024 11:00 AM EDT Medication Management [facility] MEDICINE 230 [place] [address] Nelia Sullivan PharmD [address] [place] [address] 11/11/2024 1:00 PM EDT Office Visit [facility] MEDICINE [address] [place] [address] Vickie Penaloza MD 230 [place] [address] documented as of this encounter Goals Goal [...] documented as of this encounter Care Teams Lacquer Pin Press Operator Relationship Specialty Start Date End Date Radha Jamison DO 230 [place] [address] PCP - General Family Medicine 01/26/12 Abdias Murillo, KeithD 230 [facility] [place] [address] Pharmacist Internal Medicine 03/21/22 08/30/23 Nelia Sullivan PharmD 230 [place] [address] Pharmacist Internal Medicine 08/31/23 Laurel Monterroso Special Education Itinerant TeacherHat Lining Paster 10/27/22 Saige Aguilar 09/26/23 documented as of this encounter
--- OUTSIDE RECORDS SUMMARY | 2024-10-24 00:58 | XMS_ITS | Encounter Summary ---
Author Organization [employer] Address 75 [facility] 7t [place] [address] Care Team Providers Care Chlorinator Operator Name Role Phone Radha Jamison DO Primary Care Provider +1- [phone] Abdias Murillo PharmD Unavailable Unavail able Nelia Sullivan PharmD Unavailable [phone] Reason for Visit * Reason Comments Med Refill Encounter Details Date Type Department Care Team (Late st Contact Info) Description 02/14/2023 Refill [facility] MEDICINE 230 [place] [address] Radha Jamison DO 230 [place] [address] Chronic bilateral low back pain, unspecified whether [...] 11/05/2024 10:00 AM EDT Office Visit [facility] OPTOMETRY [address] [place] [address] 11/05/2024 11:00 AM EDT Medication Management [facility] MEDICINE [address] [place] [address] Nelia Sullivan PharmD [address] [place] [address] 11/11/2024 1:00 PM EDT Office Visit [facility] MEDICINE [address] [place] [address] Vickie Penaloza MD [address] [place] [address] documented as of this encounter Goals Goal [...] documented as of this encounter Care Teams Chlorinator Operator Relationship Specialty Start Date End Date Radha Jamison DO [address] [place] [address] PCP - General Family Medicine 01/26/12 Abdias Murillo, KeithD 230 [place] [address] Pharmacist Internal Medicine 03/21/22 08/30/23 Nelia Sullivan PharmD [address] [place] [address] Pharmacist Internal Medicine 08/31/23 Laurel Monterroso Shipping/Receiving ClerkGeriatric Care Manager 10/27/22 Saige Aguilar 09/26/23 documented as of this encounter
--- OUTSIDE RECORDS SUMMARY | 2024-10-24 00:58 | XMS_ITS | Encounter Summary ---
Author Organization [employer] Address 75 [facility] 7t [place] [address] Care Team Providers Care Pony Roll Finisher Name Role Phone KassandraRadha flores Primary Care Provider +1- [phone] Abdias Murillo PharmD Unavailable Unavail able Nelia Sullivan PharmD Unavailable [phone] Reason for Visit * Reason Onset Date Comments Med Refill Appointment 05/15/2022 Re: her appt for today as [id number] @ 10:15 am. & No active phone # at this time. Encounter Details Date Type Department Care Team (Late st Contact Info) Description 05/15/2022 Refill [facility] MEDICINE 230 [place] [address] Abdias Murillo, PharmD Type 2 diabetes mellitus with other specified complication, with long-term current use of insulin ([facility]) Social History Tobacco [...] pt regarding her appt for today as [id number] @ 10:15 am. And her phone # is not active at this time. documented in this encounter Plan of Treatment Upcoming Encounters Date Type Department Care Team (Late st Contact Info) Description 11/05/2024 10:00 AM EDT Office Visit [facility] OPTOMETRY [address] [place], [place] [phone] 11/05/2024 11:00 AM EDT Medication Management [facility] MEDICINE [address] [place] [address] Nelia Sullivan PharmD 230 [place] [address] 11/11/2024 1:00 PM EDT Office Visit [facility] MEDICINE [address] [place] [address] Vickie Penaloza MD [address] [place] [address] documented as of this encounter Goals Goal Patient Goal Type Associated Problems Recent Progress Patient-Stated? Author Hemoglobin A1c < 7 Result Component 10.1( 4:57 PM EDT) No Abdias Murillo, PharmD documented as of this encounter Visit Diagnoses Diagnosis Type 2 diabetes mellitus with other specified complication, with long-term current use of insulin ([facility]) documented in this encounter Additional Health Concerns Assessment Noted Time PHQ-9 Depression Total Score: 14 023 12:00 PM EST documented as of this encounter Care Teams Pony Roll Finisher Relationship Specialty Start Date End Date Radha Jamison DO [address] [place] [address] PCP - General Family Medicine 01/26/12 Abdias Murillo, PharmD [address] [place] [address] Pharmacist Internal Medicine 03/21/22 08/30/23 Nelia Sullivan, KeithD [address] [place] [address] Pharmacist Internal Medicine 08/31/23 Laurel Monterroso Agribusiness ProfessorSediment Remediation Consultant 10/27/22 Saige Aguilar 09/26/23 documented as of this encounter
--- OUTSIDE RECORDS SUMMARY | 2024-10-24 00:58 | XMS_ITS | Encounter Summary ---
Author Organization [employer] Address 75 [facility] 7t [place] [address] Care Team Providers Care Cheese Weigher Name Role Phone Radha Jamison DO Primary Care Provider DelAbdias hardy PharmD Unavailable Unavail able Nelia Sullivan PharmD Unavailable Reason for Visit * Reason Comments Med Refill Encounter Details Date Type Department Care Team ([facility] Contact Info) Description 01/31/2022 Refill [facility]BILE VACCINE CLINIC [address] [place] [address] Radha Jamison DO 230 [place] [address] Chronic bilateral low back pain, unspecified whether [...] Description 11/05/2024 10:00 AM EDT Office Visit [facility] OPTOMETRY [address] [place] [address] 11/05/2024 11:00 AM EDT Medication Management [facility] MEDICINE [address] [place] [address] Nelia Sullivan, [place] [address] 11/11/2024 1:00 PM EDT Office Visit [facility] MEDICINE [address] [place] [address] Vickie Pnealoza MD [address] [place] [address] documented as of this encounter Visit Diagnoses Diagnosis Chronic bilateral low back pain, unspecified whether sciatica present documented in this encounter Care Teams Cheese Weigher Relationship Specialty Start Date End Date Radha Jamison DO [address] [place] [address] PCP - General Family Medicine 01/26/12 Abdias Murillo, PharmD [address] [place] [address] Pharmacist Internal Medicine 03/21/22 08/30/23 Nelia Sullivan, PharmD [address] [place] [address] Pharmacist Internal Medicine 08/31/23 Laurel Monterroso [employer] Chemistry TeacherMonument Stonecutter 10/27/22 Saige Aguilar 09/26/23 documented as of this encounter
--- OUTSIDE RECORDS SUMMARY | 2024-10-24 00:58 | XMS_ITS | Encounter Summary ---
Author Organization [employer] Address [address] [facility] 7t [place] [address] Care Team Providers Care Hi Lo Driver Name Role Phone Radha Jamison DO Primary Care Provider [phone] Abdias Murillo PharmD Unavailable Unavail able Nelia Sullivan PharmD Unavailable [phone] Reason for Visit * Reason Comments Med Refill Encounter Details Date Type Department Care Team (Late st Contact Info) Description 12/20/2022 Refill [facility] [address] [place] [address] Radha Jamison DO [address] [place] [address] Chronic bilateral low back pain, unspecified whether [...] Visit [facility] OPT[facility]RY [address] [place] [address] 11/05/2024 11:00 AM EDT Medication Management [facility] [address] [place] [address] Nelia Sullivan PharmD [address] [place] [address] 11/11/2024 1:00 PM EDT Office Visit [facility] [address] [place] [address] Vickie Penaloza MD [address] [place] [address] documented as of this encounter Goals Goal [...] documented as of this encounter Care Teams Hi Lo Driver Relationship Specialty Start Date End Date Radha Jamison DO [address] [place] [address] PCP - General Family Medicine 01/26/12 Abdias Murillo, KeithD [address] [facility] [place] [address] Pharmacist Internal Medicine 03/21/22 08/30/23 Nelia Sullivan PharmD [address] [place] [address] Pharmacist Internal Medicine 08/31/23 Laurel Monterroso Crinkling Machine OperatorMine Shifter 10/27/22 Saige Aguilar 09/26/23 documented as of this encounter
--- OUTSIDE RECORDS SUMMARY | 2024-10-24 00:58 | XMS_ITS | Encounter Summary ---
Author Organization [employer] Address [address] [facility] 7t [place] [address] Care Team Providers Care Director Business Development Name Role Phone Rdaha Jamison DO Primary Care Provider [phone] DelAbdias hardy PharmD Unavailable Unavail able Nelia Sullivan PharmD Unavailable [phone] Reason for Visit * Reason Comments Med Refill Encounter Details Date Type Department Care Team (Late st Contact Info) Description 01/24/2022 Telephone [facility] [address] [place], [place] [phone] Radha Jamison DO [address] [place] [address] Med Refill Social History Tobacco Use Types [...] 10:00 AM EDT Office Visit [facility] OPT[facility] [address] [place] [address] 11/05/2024 11:00 AM EDT Medication Management [facility] [address] [place] [address] Nelia Sullivan PharmD [address] [place] [address] 11/11/2024 1:00 PM EDT Office Visit [facility] [address] [place] [address] Vickie Penaloza MD [address] [place] [address] documented as of this encounter Visit Diagnoses Diagnosis Chronic bilateral low back pain, unspecified whether sciatica present documented in this encounter Care Teams Director Business Development Relationship Specialty Start Date End Date Radha Jamison DO [address] [place] [address] PCP - General Family Medicine 01/26/12 Abdias Murillo PharmD [address] [place] [address] Pharmacist Internal Medicine 03/21/22 08/30/23 Nelia Sullivan PharmD [address] [place] [address] Pharmacist Internal Medicine 08/31/23 Laurel Monterroso Intervention TeacherRepair Manager 10/27/22 Saige Aguilar 09/26/23 documented as of this encounter
[2024-10-24 01:08] LABS: Alanine Aminotransferase 6 U/L (0-31); Albumin Level 3.0 g/dL (3.5-5.0); Alkaline Phosphatase 94 U/L (39-117); Anion Gap 12 (12-20); Aspartate Amino Transferase 9 U/L (5-31); Blood Urea Nitrogen 25 mg/dL (9-16); Calcium 8.2 mg/dL (8.4-10.2); Carbon Dioxide 25 mmol/L (22-29); Chloride 108 mmol/L (96-108); Creatinine Clr Calc Pharmacy 47.8; Estimated Glomerular Filt Rate 49; Lipase 13 U/L (8-78); Potassium 4.3 mmol/L (3.3-5.1); Sodium 141 mmol/L (135-145); Total Protein 5.6 g/dL (6.5-8.0)
[2024-10-24] MEDS: Lactated Ringers 1,000 ML 999 ML IV (05:22)
--- NOTE | 2024-10-24 06:12 | PC.NURSE ---
Patient sleeping. IV fluids running as ordered.
--- OUTSIDE RECORDS SUMMARY | 2024-11-17 20:00 | XMS_ITS | Clinical Summary ---
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 Name Role Phone ADILIA FELIPE, VIOLETA Unavailable Unavailable SURJIT DAVID, ERIC Unavailable Unavailable Payers Payer Name Policy Type Policy Number Effective Date Expira tion Date MEDICAID [facility] [id number] Problems Condition Name Condition Details Condition Category Status Onset Date Resolution Date Last Treatment Date Treating Clinician Comments ESSENTIAL (PRIMARY) HYPERTENSION Active 09-21 00:00: 00 ATHSCL HEART DISEASE OF [place] CORONARY ARTERY W/O ANG PCTRS Active 09-21 [...] CIGARETTES, UNCOMPLICATE D Active 09-21 00:00: 00 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 Active 09-21 00:00: 00 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) USE OF ANTITHROMBOT ICS/ANTIPLAT ELETS Active [...] release 24 hr 805 00:00: 00 Yes [id number] 60 mg AT BEDTIME 60 mg AT BEDTIME (route: oral) Med Classific ation: Cardiovas cular Therapy Agents oxycodone 5 mg tablet 09-04 00:00: 00 11-19 23:59 :00 No [id number] Unavailable 5 mg FIVE TIMES DAILY NEEDED 5 mg FIVE TIMES DAILY NEEDED (route: oral) Med Classific ation: Analgesic , Anti-infl ammatory or Antipyret ic gabapentin 600 mg tablet 09-03 00:00: 00 09-25 23:59 :00 No [id number] 600 mg 2 TIMES DAILY 600 mg 2 TIMES DAILY (route: oral) Med Classific ation: Central Nervous System Agents nicotine 21 mg/24 hr daily transdermal patch 08-30 00:00: 00 Yes [id number] Unavailable 21 mg DAILY 21 mg DAILY (route: transderma l) Med Classific ation: Chemical Dependenc y, Agents to Treat Alcohol Prep Pads 08-29 00:00: 00 05-18 23:59 :00 No [id number] 1 pads, medicat ed DIRECTED THREE TIMES DAILY AND NEEDED 1 pads, medicated DIRECTED THREE TIMES DAILY AND NEEDED (route: topical) Med Classific ation: Antisepti cs and Disinfect ants amitriptyli ne 50 mg tablet 08-29 00:00: 00 09-22 23:59 :00 No [id number] Unavailable 50 mg AT BEDTIME 50 mg AT BEDTIME (route: oral) Med Classific ation: Central Nervous System Agents Asmanex HFA 100 mcg/actuati on aerosol inhaler 08-29 00:00: 00 Yes [id number] 2 puff TWICE DAILY 2 puff TWICE DAILY (route: inhalation ) Med Classific ation: Respirato ry Therapy Agents atorvastati n 80 mg tablet 08-29 00:00: 00 Yes [id number] Unavailable 80 mg BEDTIME 80 mg BEDTIME (route: oral) Med Classific ation: Cardiovas cular Therapy Agents carvedilol 25 mg tablet 08-29 00:00: 00 Yes [id number] Unavailable 25 mg TWICE DAILY 25 mg TWICE DAILY (route: oral) Med Classific ation: Cardiovas cular Therapy Agents clopidogrel 75 mg tablet 08-29 00:00: 00 Yes [id number] 75 mg EVERY AM 75 mg EVERY AM (route: oral) Med Classific ation: Hematolog ical Agents docusate sodium 100 mg capsule 08-29 00:00: 00 09-25 23:59 :00 No [id number] Unavailable 100 mg TWICE DAILY 100 mg TWICE DAILY (route: oral) Med Classific ation: Gastroint estinal Therapy Agents escitalopra m 20 mg tablet 08-29 00:00: 00 Yes [id number] Unavailable 20 mg EVERY PM 20 mg EVERY PM (route: oral) Med Classific ation: Central Nervous System Agents FeroSul 325 mg (65 mg iron) tablet 08-29 00:00: 00 09-25 23:59 :00 No [id number] Unavailable 325 mg TWICE DAILY IN THE MORNING AND AT BEDTIME 325 mg TWICE DAILY IN THE MORNING AND AT BEDTIME (route: oral) Med Classific ation: Electroly te Balance-N utritiona l Products gabapentin 800 mg tablet 08-29 00:00: 00 09-22 23:59 :00 No [id number] 800 mg 2 TIMES DAILY 800 mg 2 TIMES DAILY (route: oral) Med Classific ation: Central Nervous System Agents hydralazine 25 mg tablet 08-29 00:00: 00 09-22 23:59 :00 No [id number] Unavailable 25 mg 3 TIMES DAILY 25 mg 3 TIMES DAILY (route: oral) Med Classific ation: Cardiovas cular Therapy Agents hydralazine 50 mg tablet 08-29 00:00: 00 09-25 23:59 :00 No [id number] Unavailable 50 mg THREE TIMES DAILY IN THE MORNING AT 50 mg THREE TIMES DAILY IN THE MORNING AT (route: oral) Med Classific ation: Cardiovas cular Therapy Agents mirtazapine 45 mg tablet 08-29 00:00: 00 Yes [id number] Unavailable 45 mg AT BEDTIME 45 mg AT BEDTIME (route: oral) Med Classific ation: Central Nervous System Agents omeprazole 20 mg capsule,del ayed release 08-29 00:00: 00 Yes [id number] 20 mg TWICE DAILY 20 mg TWICE DAILY (route: oral) Med Classific ation: Gastroint estinal Therapy Agents lisinopril 40 mg tablet 09-25 00:00: 00 Yes [id number] 40 mg DAILY 40 mg DAILY (route: oral) Med Classific ation: Cardiovas cular Therapy Agents metformin 1,000 mg tablet 09-25 00:00: 00 09-22 23:59 :00 No [id number] 1000 mg 2 TIMES DAILY 1000 mg 2 TIMES DAILY (route: oral) Med Classific ation: Endocrine multivitami n tablet 09-25 00:00: 00 Yes [id number] 1 tablet DAILY 1 tablet DAILY (route: oral) Med Classific ation: Electroly te Balance-N utritiona l Products nifedipine ER 60 mg tablet,exte nded release 09-25 00:00: 00 Yes [id number] 60 mg EVERY PM 60 mg EVERY PM (route: oral) Med Classific ation: Cardiovas cular Therapy Agents pioglitazon e 15 mg tablet 09-25 00:00: 00 Yes [id number] 15 mg DAILY 15 mg DAILY (route: oral) Med Classific ation: Endocrine Tresiba FlexTouch U-100 insulin 100 unit/mL (3 mL) subcutaneou s pen 09-25 00:00: 00 Yes [id number] 10 In unit DAILY 10 In unit DAILY (route: subcutaneo ) Med Classific ation: Endocrine aspirin 81 mg tablet 09-22 00:00: 00 Yes [id number] 1 tablet DAILY 1 tablet DAILY (route: oral) Med Classific ation: Hematolog ical Agents docusate sodium 100 mg capsule 09-22 00:00: 00 Yes [id number] 1 capsule 2 TIMES DAILY 1 capsule 2 TIMES DAILY (route: oral) Med Classific ation: Gastroint estinal Therapy Agents ferrous sulfate 325 mg (65 mg iron) tablet 09-22 00:00: 00 Yes [id number] 1 tablet 2 TIMES DAILY 1 tablet 2 TIMES DAILY (route: oral) Med Classific ation: Electroly te Balance-N utritiona l Products isosorbide mononitrate ER 30 mg tablet,exte nded release 24 hr 09-22 00:00: 00 Yes [id number] 1 tablet DAILY 1 tablet DAILY (route: oral) Med Classific ation: Cardiovas cular Therapy Agents Vital Signs Vital Name Observation Time Observation Value Commen ts Temperature 2024-10-22 10:53:00.000 97.5 [degF] Temperature 2024-10-21 11:18:00.000 97.8 [degF] Temperature 2024-10-20 10:48:00.000 98 [degF] Temperature 2024-10-19 10:56:00.000 97.5 [degF] Temperature 2024-10-18 11:12:00.000 97.4 [degF] Temperature 2024-10-17 15:38:00.000 97.5 [degF] Temperature 2024-10-14 11:51:00.000 97.5 [degF] Temperature 2024-10-13 [...] AWARENESS FOR SAFETY AND WILL NOTIFY CLINICAL PLANT BREEDER SCIENTIST AND PHYSICIAN/PROVIDER WITH ANY CHANGE IN CONDITION. [code = SKILLED NURSE WILL MAINTAIN SITUATIONAL AWARENESS FOR SAFETY AND WILL NOTIFY CLINICAL PLANT BREEDER SCIENTIST AND PHYSICIAN/PROVIDER WITH ANY CHANGE IN CONDITION.] [...] Goal - TO HAVE LESS PAIN Goal Provider Goal - A PLAN OF [...] End Date/Time Encounter Type Admission Type Attending [facility] Facility Care Department Encounter ID Discharge Date Discharge Status Discharge Condition Discharge Reason Percent Goals Met 2024-09-20 00:00:00 2024-11-18 00:00:00 Outpatient RECERTIFIC ATION ERIC EDDY [facility] [id number] 20.45
== END 2024-10-24 06:50 | disposition home or self-care (01) ==
PROVIDERS: Emergency Provider Emergency Medicine
DX: R10.2 Pelvic and perineal pain (principal); R11.2 Nausea with vomiting, unspecified; R10.13 Epigastric pain; R51.9 Headache, unspecified; Z79.899 Other long term (current) drug therapy
CPT/HCPCS: 36415; 80048; 80076; 83690; 85025; 96361; 96374; 96375; 99284; 99285; J0131; J1200; J1308; J2765; J7120

== ENCOUNTER 2024-11-11 | Outpatient (REF) | payer MEDICAID, SELFPAY ==
[2024-11-11 11:42] VITALS: BP 188/88; PULSE 70; RESP 16; O2SAT 100; BMI 27.5
--- NOTE | 2024-11-11 12:12 | HO.ANESPROP2 ---
HPI - Anesthesia Eval Consult details Narrative: Cancelled by Margo due to pt being high risk 63 yr old female for left carotid endarterectomy scheduled for 11/18/24, seen in PAT 11/11/24 No CP or SOB with minimal walking; avoids walking due to leg pain, increased BP Saw cardiology for 11/11/24 preop clearance. LORE: does not use CPAP NSTEMI Mild aortic stenosis On both eliquis & plavix Type 2 DM: A1C 10.3% May 2024 - will update; pt reports checking BG at home, readings are High Asthma: well controlled, using ICS & ANIKA prn, cannot clarify how often Anesthesia Pre-Procedure Meds Is the patient on any of the following meds?: GLP1/DPP4 and SGLT2 Inhib PMFSH Active Problems Active Problems: All Active Problems Fibromuscular dysplasia of renal artery (Acute) Elevated troponin (Acute) Hypertension (Acute) Nonadherence to medication (Acute) Anemia (Acute) Proteinuria (Acute) Lumbosacral spondylosis (Acute) Spondylolisthesis, lumbar region (Acute) Elevated hemoglobin A1c (Acute) PVD (peripheral vascular disease) (Acute) Hypertension, uncontrolled (Acute) Tobacco abuse (Acute) Bilateral carotid artery stenosis (Acute) Leg wound, right (Acute) Stable angina (Acute) Postoperative anemia (Acute) Status post femoral-popliteal bypass surgery (Acute) Preoperative cardiovascular examination (Acute) PAD (peripheral artery disease) (Acute) Diabetic foot ulcer (Acute) Uncontrolled diabetes mellitus (Acute) Infection of toe (Acute) Abdominal bloating (Acute) LUQ abdominal pain (Acute) Weight loss, abnormal (Acute) Tachycardia (Acute) NIDDY (non-insulin dependent diabetes mellitus in young) (Acute) Nausea and vomiting (Acute) H. pylori infection (Acute) Chest pressure (Acute) NSTEMI (non-ST elevated myocardial infarction) (Acute) Lumbar spinal stenosis (Acute) CAD (coronary artery disease) (Acute) Vitamin D deficiency (Acute) HLD (hyperlipidemia) (Acute) T2DM (type 2 diabetes mellitus) (Acute) HTN (hypertension) (Acute) Past Medical History Medical History (Updated 12/17/24 @ 00:01 by Arnold Mcgrath) Smoker Chronic anemia NSTEMI (non-ST elevated myocardial infarction) Mild aortic valve stenosis LORE (obstructive sleep apnea) Chronic low back pain Lumbar spinal stenosis HTN (hypertension) Vitamin D deficiency HLD (hyperlipidemia) T2DM (type 2 diabetes mellitus) H. pylori infection CAD (coronary artery disease) Cyst (solitary) of breast Kidney calculi Arthritis Asthma HTN (hypertension) Diabetes Family History Family History Mother Diabetes Liver cancer Family history of problems with anesthesia: No Surgical History Surgical History (Updated 11/13/24 @ 08:24 by Kia Ma RN) Hx of vascular surgery (05/18/20) History of right-sided carotid endarterectomy (~11/2022) S/P aortogram History of esophagogastroduodenoscopy (EGD) Hx of colonoscopy History of breast surgery (~1983) History of cardiac cath History of Problems with Anesthesia: No Social History Social History (Updated 11/11/24 @ 12:25 by Kia Ma RN) Household Members: Family and Other Household Members Other:: friend and adult son Housing: Apartment Are you a primary home health care coordinator to a significant other at home: No Do you presently have visiting nurse or other home services: Yes Alcohol intake: never Comment: refuses bed alarm Patient Tobacco Use Status: Current everyday Tobacco user Tobacco use type: Cigarette Years Smoked: 44 e-Cigarette/Vaping Use: Currently Using Second Hand Smoke Exposure: Yes Advance Directives Date on File: 09/26/23 service: No Current occupational status: unemployed and disabled Meds Allergies Allergy/AdvReac Type Severity Reaction Status Date / Time latex (LATEX) Allergy Severe RASH Verified 12/15/24 22:59 naproxen (From NAPROSYN) AdvReac Intermediate TACHYCARDIA Verified 12/15/24 22:59 Home Medications ?Medication ?Instructions ?Recorded ?Confirmed ?Last Taken ?Type aspirin 81 mg tablet,delayed 81 mg PO DAILY 01/02/20 11/12/24 08/26/24 History release (Adult Low Dose Aspirin) atorvastatin 80 mg tablet (Lipitor) 80 mg PO BEDTIME 01/02/20 11/12/24 08/25/24 History escitalopram oxalate 20 mg tablet 20 mg PO DAILY@1800 01/02/20 11/12/24 08/25/24 History (Lexapro) mirtazapine 45 mg tablet 45 mg PO BEDTIME 01/02/20 11/12/24 08/25/24 History multivitamin 1 tab PO DAILY 01/02/20 11/12/24 08/26/24 History blood sugar diagnostic (FreeStyle #10 ea 03/30/21 08/08/24 10/24/23 History Lite Strips) insulin degludec 100 unit/mL (3 14 unit subcut DAILY 10/03/22 11/12/24 08/26/24 History mL) subcutaneous pen (Tresiba FlexTouch U-100 insulin) docusate sodium 100 mg capsule 100 mg PO BID 01/30/24 11/12/24 08/26/24 History ezetimibe 10 mg tablet 10 mg PO DAILY 04/11/24 11/12/24 08/26/24 History amitriptyline 50 mg tablet 50 mg PO BEDTIME 08/08/24 11/12/24 08/25/24 History gabapentin 600 mg tablet 600 mg PO BID 08/08/24 11/12/24 08/26/24 History hydrochlorothiazide 50 mg tablet 50 mg PO DAILY 08/08/24 11/12/24 08/26/24 History acetaminophen 650 mg 650 mg PO Q8H 08/27/24 11/12/24 08/26/24 History tablet,extended release albuterol sulfate 90 mcg/actuation 2 puff inhalation Q6H PRN 08/27/24 11/12/24 Unknown History aerosol inhaler (Ventolin HFA) Shortness Of Breath Or Wheezing ferrous sulfate 325 mg (65 mg 325 mg PO BID PRN Iron Levels 08/27/24 11/12/24 Unknown History iron) tablet fluticasone propionate 50 2 spray intranasal DAILY 08/27/24 11/12/24 08/26/24 History mcg/actuation nasal spray,suspension isosorbide mononitrate 30 mg 30 mg PO DAILY 08/27/24 11/12/24 08/26/24 History tablet,extended release 24 hr lisinopril 40 mg tablet 40 mg PO DAILY 08/27/24 11/12/24 08/26/24 History loratadine 10 mg tablet 10 mg PO DAILY 08/27/24 11/12/24 08/26/24 History mometasone 100 mcg/actuation HFA 2 puff inhalation BID 08/27/24 11/12/24 08/26/24 History aerosol inhaler (Asmanex HFA) nicotine (polacrilex) 2 mg buccal 2 mg PO Q1-2H PRN Nicotine Cravings 08/27/24 11/12/24 Unknown History lozenge omeprazole 20 mg capsule,delayed 40 mg PO BIDWM@0800,1700 08/27/24 11/12/24 08/26/24 History release semaglutide 0.25 mg or 0.5 mg (2 0.5 mg subcut FR 08/27/24 11/12/24 10/11/24 History mg/3 mL) subcutaneous pen injector (Ozempic) clopidogrel 75 mg tablet (Plavix) 75 mg PO DAILY 10/15/24 11/12/24 Unknown History telmisartan 80 mg tablet 80 mg PO DAILY 10/15/24 11/12/24 Unknown History empagliflozin 12.5 mg-metformin 1 tab PO BID 11/11/24 11/11/24 Unknown History 1,000 mg tablet (Synjardy) rosuvastatin 40 mg tablet 40 mg PO DAILY 11/11/24 11/11/24 Unknown History Exam Height,Weight and Vital Signs: Height 5 ft Weight 63.957 kg Last Vital Signs Pulse 70 11/11/24 11:42 Resp 16 11/11/24 11:42 BP 188/88 H 11/11/24 11:42 Pulse Ox 100 11/11/24 11:42 O2 Del Method Room Air 11/11/24 11:42 Assessment and Plan Final Anesthetic Review Family History of Problems with Anesthesia: No History of Problems with Anesthesia: No
[2024-11-11 13:20] LABS: INTERNATIONAL NORM RATIO 0.9 (0.9-1.1); Prothrombin Time 10.6 SEC (10.9-12.4)
[2024-11-11 13:23] LABS: Partial Thromboplastin Time 29.6 SEC (26.7-34.1)
--- NOTE | 2025-01-03 13:09 | HO.ANESPROP2 ---
HPI - Anesthesia Eval Consult details Narrative: 63 yr old female for left carotid endarterectomy rescheduled for 01/06/25 seen in PAT 11/11/24, case was initially cancelled by Margo due to pt being high risk, cancelled a 2nd time due to being sick. *Notes from 11/11/24 PAT: No CP or SOB with minimal walking; avoids walking due to leg pain, increased BP Saw [facility] 12/31/24 for a second clearance appt stating: She has known Multivessel coronary artery disease and has an intermediate to high risk for perioperative cardiac complications. Pt has been informed of this risk. She should remain on aspirin during perioperative period. Continue Rosuvastatin, carvedilol . NSTEMI -H/O Diffuse multivessel coronary disease, with a cardiac catheterization on 11/30/2023 showing 40% distal left main stenosis, 70-75% diffuse proximal and distal RCA stenosis, 70% ostial LAD stenosis with heavy calcification, and up to 70% circumflex stenosis. -Her last echocardiogram on 08/27/2024 showed an EF of 64%, grade 2 diastolic dysfunction, moderate calcification of the aortic valve with mild to moderate aortic stenosis, and moderate mitral valve calcification. -On both eliquis & plavix Aortic stenosis: echo updated 08/2024 showing mean gradient 12, AV valve area 0.58 Poorly controlled HTN: was in ED again early Dec 2024 with LIRIANO, elevated BP Tobacco dependence Type 2 DM, uncontrolled: A1C 10.3% Oct 2024 Asthma: well controlled, using ICS & ANIKA prn, cannot clarify how often LORE: does not use CPAP Anesthesia Pre-Procedure Meds Is the patient on any of the following meds?: GLP1/DPP4 and SGLT2 Inhib PMFSH Active Problems Active Problems: All Active Problems (Updated 12/19/24 @ 00:00 by Background Daemon) History of cardiac cath (Acute) Fibromuscular dysplasia of renal artery (Acute) Elevated troponin (Acute) Hypertension (Acute) Nonadherence to medication (Acute) Anemia (Acute) Proteinuria (Acute) Lumbosacral spondylosis (Acute) Spondylolisthesis, lumbar region (Acute) Elevated hemoglobin A1c (Acute) PVD (peripheral vascular disease) (Acute) Hypertension, uncontrolled (Acute) Tobacco abuse (Acute) Bilateral carotid artery stenosis (Acute) Leg wound, right (Acute) Stable angina (Acute) Postoperative anemia (Acute) Status post femoral-popliteal bypass surgery (Acute) Preoperative cardiovascular examination (Acute) PAD (peripheral artery disease) (Acute) Diabetic foot ulcer (Acute) Uncontrolled diabetes mellitus (Acute) Infection of toe (Acute) Abdominal bloating (Acute) LUQ abdominal pain (Acute) Weight loss, abnormal (Acute) Tachycardia (Acute) NIDDY (non-insulin dependent diabetes mellitus in young) (Acute) Nausea and vomiting (Acute) H. pylori infection (Acute) Chest pressure (Acute) NSTEMI (non-ST elevated myocardial infarction) (Acute) Lumbar spinal stenosis (Acute) CAD (coronary artery disease) (Acute) Vitamin D deficiency (Acute) HLD (hyperlipidemia) (Acute) T2DM (type 2 diabetes mellitus) (Acute) HTN (hypertension) (Acute) Past Medical History Medical History Smoker Chronic anemia NSTEMI (non-ST elevated myocardial infarction) Mild aortic valve stenosis LORE (obstructive sleep apnea) Chronic low back pain Lumbar spinal stenosis HTN (hypertension) Vitamin D deficiency HLD (hyperlipidemia) T2DM (type 2 diabetes mellitus) H. pylori infection CAD (coronary artery disease) Cyst (solitary) of breast Kidney calculi Arthritis Asthma HTN (hypertension) Diabetes Family History Family History Mother Diabetes Liver cancer Family history of problems with anesthesia: No Surgical History Surgical History Hx of vascular surgery (05/18/20) History of right-sided carotid endarterectomy (~11/2022) S/P aortogram History of esophagogastroduodenoscopy (EGD) Hx of colonoscopy History of breast surgery (~1983) History of cardiac cath History of Problems with Anesthesia: No Social History Social History Household Members: Other Household Members Other:: friend and adult son Housing: Apartment Are you a primary care support representative to a significant other at home: No Do you presently have visiting nurse or other home services: Yes Alcohol intake: never Comment: refuses bed alarm Patient Tobacco Use Status: Current everyday Tobacco user Tobacco use type: Cigarette Cigarette Packs Per Day: 1 Cigarettes Per Day: 2 Years Smoked: 30 e-Cigarette/Vaping Use: Currently Using Second Hand Smoke Exposure: Yes Advance Directives Date on File: 09/26/23 service: No Current occupational status: unemployed and disabled Meds Allergies Allergy/AdvReac Type Severity Reaction Status Date / Time latex (LATEX) Allergy Severe RASH Verified 01/28/25 10:10 naproxen (From NAPROSYN) AdvReac Intermediate TACHYCARDIA Verified 01/28/25 10:10 Home Medications ?Medication ?Instructions ?Recorded ?Confirmed ?Last Taken ?Type escitalopram oxalate 20 mg tablet 20 mg PO DAILY@1800 01/02/20 01/28/25 08/25/24 History (Lexapro) mirtazapine 45 mg tablet 45 mg PO BEDTIME 01/02/20 01/28/25 08/25/24 History blood sugar diagnostic (FreeStyle #10 ea 03/30/21 01/28/25 10/24/23 History Lite Strips) insulin degludec 100 unit/mL (3 14 unit subcut DAILY 10/03/22 01/28/25 08/26/24 History mL) subcutaneous pen (Tresiba FlexTouch U-100 insulin) docusate sodium 100 mg capsule 100 mg PO BID 01/30/24 01/28/25 08/26/24 History ezetimibe 10 mg tablet 10 mg PO DAILY 04/11/24 01/28/25 08/26/24 History hydrochlorothiazide 50 mg tablet 50 mg PO DAILY 08/08/24 01/28/25 08/26/24 History albuterol sulfate 90 mcg/actuation 2 puff inhalation Q6H PRN 08/27/24 01/28/25 Unknown History aerosol inhaler (Ventolin HFA) Shortness Of Breath Or Wheezing ferrous sulfate 325 mg (65 mg 325 mg PO BID PRN Iron Levels 08/27/24 01/28/25 Unknown History iron) tablet fluticasone propionate 50 2 spray intranasal DAILY 08/27/24 01/28/25 08/26/24 History mcg/actuation nasal spray,suspension isosorbide mononitrate 30 mg 30 mg PO DAILY 08/27/24 01/28/25 08/26/24 History tablet,extended release 24 hr mometasone 100 mcg/actuation HFA 2 puff inhalation BID 08/27/24 01/28/25 08/26/24 History aerosol inhaler (Asmanex HFA) omeprazole 20 mg capsule,delayed 40 mg PO BIDWM@0800,1700 08/27/24 01/28/25 08/26/24 History release semaglutide 0.25 mg or 0.5 mg (2 0.5 mg subcut FR 08/27/24 01/28/25 10/11/24 History mg/3 mL) subcutaneous pen injector (Ozempic) clopidogrel 75 mg tablet (Plavix) 75 mg PO DAILY 10/15/24 01/28/25 Unknown History telmisartan 80 mg tablet 80 mg PO DAILY 10/15/24 01/28/25 Unknown History empagliflozin 12.5 mg-metformin 1 tab PO BID 11/11/24 01/28/25 Unknown History 1,000 mg tablet (Synjardy) rosuvastatin 40 mg tablet 40 mg PO DAILY 11/11/24 01/28/25 Unknown History Exam Height,Weight and Vital Signs: Height 5 ft Weight 63.957 kg Last Vital Signs Pulse 70 11/11/24 11:42 Resp 16 11/11/24 11:42 BP 188/88 H 11/11/24 11:42 Pulse Ox 100 11/11/24 11:42 O2 Del Method Room Air 11/11/24 11:42 Pertinent Lab Results Pertinent Lab Results: Laboratory Tests 11/11/24 11/11/24 12:47 12:58 PT 10.6 L INR 0.9 APTT 29.6 Estimat Average Glucose 249 Hemoglobin A1c % 10.3 H Blood Type O Positive Antibody Screen NEGATIVE Laboratory Tests 12/17/24 20:28 WBC 5.7 RBC 4.23 Hgb 12.1 Hct 37.0 Plt Count 312 Sodium 138 Potassium 3.8 Chloride 107 Carbon Dioxide 26 BUN 11 Creatinine 0.82 Narrative Narrative: ECHO 08/2024 Conclusions: - The left ventricular systolic function is normal. The calculated ejection fraction is 64% by biplane method. - Evidence suggests grade II (moderate) diastolic dysfunction. - There is no evidence of interatrial shunt by agitated saline. - There is moderate calcification of the aortic valve. There is mild to moderate aortic valve stenosis. - There is moderate mitral annular calcification. - Echolucent structure in liver,5.8x3.3cm, possibly cystic. Consider dedicated ultrasound. EKG 12/31/24 NSR, rate [address] and T wave abnormality Assessment and Plan Final Anesthetic Review Family History of Problems with Anesthesia: No History of Problems with Anesthesia: No
--- OUTSIDE RECORDS SUMMARY | 2025-01-06 05:58 | XMS_ITS | Encounter Summary ---
Author Organization [employer] Address [address] [facility] 7t [place] [address] Care Team Providers Care Bread Distributor Name Role Phone Radha Jamison DO Primary Care Provider Nelia Sullivan PharmD Unavailable Letty Rinaldi Unavailable Dalila Carson RN Unavailable [phone] Ekta Reynolds Unavailable Reason for Visit * Reason Comments Med Refill Encounter Details Date Type Department Care Team (Late st Contact Info) Description 02/29/2024 Refill [facility] MEDICINE [address] [place], [place] [phone] Radha Jamison DO [address] [place], [place] [phone] Chronic bilateral low back pain, unspecified whether sciatica present Social History Tobacco Use Types Packs/Day Years Used Date Smoking Tobacco: Every Day Cigarettes 1 45.4 Started: 08/31/1979 Passive Smoke Exposure: Current Smokeless [...] until seen by PCP or seen by TRAVOGRAPH OPERATOR. Scheduled TRAVOGRAPH OPERATOR 03/05/24. documented in this encounter Plan of Treatment Upcoming Encounters Date Type Department Care Team (Late st Contact Info) Description 01/07/2025 10:00 AM EST Medication Management [facility] MEDICINE [address] [place] [address] Nelia Sullivan, PharmD [address] [place], [place] [phone] 03/13/2025 9:30 AM EST Office Visit [facility] OPTOMETRY [address] [place] [address] Radha Taylor, OD [address] [place] [address] documented as of this encounter Goals Goal [...] documented as of this encounter Care Teams Bread Distributor Relationship Specialty Start Date End Date Radha Jamison DO [address] [place] [address] PCP - General Family Medicine 01/26/12 Puia, Nelia, PharmD [address] [place] [address] Pharmacist Internal Medicine 08/31/23 Letty Rinaldi 12/16/24 12/18/24 Dalila Carson RN [address] [place] [address] Registered Nurse Family Medicine 12/31/24 Ekta Reynolds 12/31/24 Laurel Monterroso Insurance RaterLine Inspector 10/27/22 Saige Aguilar 09/26/23 documented as of this encounter
--- OUTSIDE RECORDS SUMMARY | 2025-01-06 05:58 | XMS_ITS | Encounter Summary ---
Author Organization [employer] Address [address] [facility] 7t [place] [address] Care Team Providers Care Telephone Operator Name Role Phone Radha Jamison DO Primary Care Provider Abdias Murillo PharmD Unavailable Unavail able Nelia Sullivan PharmD Unavailable [phone] Letty Rinaldi Unavailable Dalila Carson RN Unavailable [phone] Ekta Reynolds Unavailable Reason for Visit * Reason Onset Date Comments uber 05/08/2023 Encounter Details Date Type Department Care Team (Late st Contact Info) Description 05/08/2023 Telephone [facility] MEDICINE [address] [place], [place] [phone] Radha Jamison DO 230 [place], [place] [phone] uber Social History Tobacco Use Types Packs/Day [...] / denial letter via mail. PT-1 Request [id number] Pending . [facility] [address] [place] [address] Solar Installation Supervisor noticed pt has pending referrals. Solar Installation Supervisor has added a note to each to add PT1 for referred tooffice. * Telephone Encounter - Ginna Stephen RN - 05/10/2023 9:31 AM EDT Uber booked for tomorrow 8:45am. TC placed to pt. And made pt. Aware. Pt. Also reports PT-1 expiredand would like it renewed for next time, to [facility] * Telephone Encounter - Ciera Carson - 05/10/2023 9:07 AM EDT Tc from pt calling in regards to message above. Pt also received a call, sheet writer does not see any documentation. Please contact pt at [phone] * Telephone Encounter - Ciera Alli - 05/08/2023 12:54 PM EDT Tc from pt states will need uber transportation for 05/10 with provider. Please contact pt at [phone] documented in this encounter Plan of Treatment Upcoming Encounters Date Type Department Care Team (Late st Contact Info) Description 01/07/2025 10:00 AM EST Medication Management [facility] MEDICINE [address] [place] [address] Nelia Sullivan PharmD [address] [place] [address] 03/13/2025 9:30 AM EST Office Visit [facility] OPTOMETRY [address] [place] [address] Radha Taylor, OD [address] [place] [address] documented as of this encounter Goals Goal [...] documented as of this encounter Care Teams Telephone Operator Relationship Specialty Start Date End Date Radha Jamison DO [address] [place] [address] PCP - General Family Medicine 01/26/12 Abdias Murillo, PharmD [address] [place] [address] Pharmacist Internal Medicine 03/21/22 08/30/23 Nelia Sullivan PharmD [address] [place] [address] Pharmacist Internal Medicine 08/31/23 Letty Rinaldi 12/16/24 12/18/24 Dalila Carson, RN [address] [place] [address] Registered Nurse Family Medicine 12/31/24 Ekta Reynolds 12/31/24 Laurel Monterroso Senior Planning AnalystDice Table Person 10/27/22 Saige Aguilar 09/26/23 documented as of this encounter
--- OUTSIDE RECORDS SUMMARY | 2025-01-06 05:58 | XMS_ITS | Encounter Summary ---
Author Organization [employer] Address [address] [facility] 7t [place] [address] Care Team Providers Care Hair Or Beauty Salon Manager Name Role Phone Radha Jamison DO Primary Care Provider [phone] Nelia Sullivan PharmD Unavailable Letty Rinaldi Unavailable Dalila Carson RN Unavailable [phone] Ekta Reynolds Unavailable Reason for Visit * Reason Comments Med Refill Encounter Details Date Type Department Care Team (Late st Contact Info) Description 12/28/[address] [facility] MEDICINE [address] [place], [place] [phone] Radha Jamison DO [address] [place], [place] [phone] Chronic bilateral low back pain, unspecified whether [...] Description 01/07/2025 10:00 AM EST Medication Management [facility] MEDICINE [address] [place] [address] Nelia Sullivan, PharmD [address] [place] [address] 03/13/2025 9:30 AM EST Office Visit [facility] OPTOMETRY [address] [place] [address] Radha Taylor, OD [address] [place] [address] documented as of this encounter Goals Goal [...] as of this encounter Care Teams Hair Or Beauty Salon Manager Relationship Specialty Start Date End Date Radha Jamison DO [address] [place] [address] PCP - General Family Medicine 01/26/12 Nelia Sullivan PharmD [address] [place] [address] Pharmacist Internal Medicine 08/31/23 Letty Rinaldi 12/16/24 12/18/24 Dalila Carson, JOANN [address] [place] [address] Registered Nurse Family Medicine 12/31/24 Ekta Reynolds 12/31/24 Laurel Monterroso Stock SelectorDirector News 10/27/22 Saige Aguilar 09/26/23 documented as of this encounter
--- OUTSIDE RECORDS SUMMARY | 2025-01-06 05:58 | XMS_ITS | Encounter Summary ---
Author Organization [employer] Address [address] [facility] 7t [place] [address] Care Team Providers Care Music Grapher Name Role Phone Radha Jamison DO Primary Care Provider [phone] Nelia Sullivan PharmD Unavailable Letty Rinaldi Unavailable Dalila Carson RN Unavailable [phone] Ekta Reynolds Unavailable Reason for Visit * Reason Onset Date Comments Nurse Triage 10/07/2024 Encounter Details Date Type Department Care Team (Late st Contact Info) Description 10/07/2024 Telephone [facility] MEDICINE [address] [place], [place] [phone] Radha Jamison DO [address] [place], [place] [phone] Nurse Triage Social History Tobacco Use Types [...] Triage call with [facility] yarn salvager ID [id number] Pt reports swelling of bilateral lower extremities [...] come to the WIC at [facility] to be seen by provider open [...] caller accepted this outcome. Contact pt at [phone] documented in this encounter Plan of Treatment Upcoming Encounters Date Type Department Care Team (Late st Contact Info) Description 01/07/2025 10:00 AM EST Medication Management [facility] MEDICINE [address] [place] [address] Puia, Nelia, PharmD [address] [place] [address] 03/13/2025 9:30 AM EST Office Visit [facility] OPTOMETRY [address] [place] [address] Rdaha Talyor, OD [address] [place] [address] documented as of this encounter Goals Goal [...] documented as of this encounter Care Teams Music Grapher Relationship Specialty Start Date End Date Radha Jamison DO [address] [place] [address] PCP - General Family Medicine 01/26/12 Nelia Sullivan PharmD [address] [place] [address] Pharmacist Internal Medicine 08/31/23 Letty Rinaldi 12/16/24 12/18/24 Dalila Carson, JOANN [address] [place] [address] Registered Nurse Family Medicine 12/31/24 Ekta Reynolds 12/31/24 Laurel Monterroso Wheel FitterPediatrician Active Practice 10/27/22 Saige Aguilar 09/26/23 documented as of this encounter
--- OUTSIDE RECORDS SUMMARY | 2025-01-06 05:58 | XMS_ITS | Encounter Summary ---
Author Organization [employer] Address [address] [facility] 7t [place] [address] Care Team Providers Care Outbound Sales Executive Name Role Phone Radha Jamison DO Primary Care Provider Nelia Sullivan PharmD Unavailable Letty Rinaldi Unavailable Dalila Carson RN Unavailable Ekta Reynolds Unavailable Reason for Visit * Reason Comments Med Refill Encounter Details Date Type Department Care Team (Late st Contact Info) Description 03/19/2024 Refill [facility] MEDICINE [address] [place], [place] [phone] Radha Jamison DO 230 [place], [place] [phone] Chronic bilateral low back pain, unspecified whether [...] 10:00 AM EST Medication Management [facility] MEDICINE [address] [place] [address] Nelia Sullivan, PharmD 230 [place] [address] 03/13/2025 9:30 AM EST Office Visit [facility] OPTOMETRY [address] [place] [address] Radha Taylor, OD [address] [place] [address] documented as of this encounter Goals Goal [...] documented as of this encounter Care Teams Outbound Sales Executive Relationship Specialty Start Date End Date Radha Jamison DO [address] [place] [address] PCP - General Family Medicine 01/26/12 Nelia Sullivan PharmD [address] [place] [address] Pharmacist Internal Medicine 08/31/23 Letty Rinaldi 12/16/24 12/18/24 Dalila Carson, JOANN [address] [place] [address] Registered Nurse Family Medicine 12/31/24 Ekta Reynolds 12/31/24 Laurel Monterroso General Milling SuperintendentTranscription 10/27/22 Saige Aguilar 09/26/23 documented as of this encounter
--- OUTSIDE RECORDS SUMMARY | 2025-01-06 05:58 | XMS_ITS | Encounter Summary ---
Author Organization [employer] Address [address] [facility] 7t [place] [address] Care Team Providers Care Tire Assembler Name Role Phone Radha Jamison DO Primary Care Provider Nelia Sullivan PharmD Unavailable Letty Rinaldi Unavailable Dalila Carson RN Unavailable [phone] Ekta Reynlods Unavailable Reason for Visit * Reason Onset Date Comments Med Refill 03/06/2024 Encounter Details Date Type Department Care Team (Late st Contact Info) Description 03/06/2024 Telephone [facility] MEDICINE [address] [place], [place] [phone] Radha Jamison DO [address] [place], [place] [phone] Med Refill Social History Tobacco Use Types [...] immediate release tablet To be sent to: [facility] pharmacy documented in this encounter Plan of Treatment Upcoming Encounters Date Type Department Care Team (Late st Contact Info) Description 01/07/2025 10:00 AM EST Medication Management [facility] MEDICINE [address] [place] [address] Nelia Sullivan, PharmD [address] [place] [address] 03/13/2025 9:30 AM EST Office Visit [facility] OPTOMETRY [address] [place] [address] Claudia Radha, OD [address] [place] [address] documented as of this encounter Goals Goal [...] as of this encounter Care Teams Tire Assembler Relationship Specialty Start Date End Date Radha Jamison DO [address] [place] [address] PCP - General Family Medicine 01/26/12 Puia, Nelia, PharmD [address] [place] [address] Pharmacist Internal Medicine 08/31/23 Letty Rinaldi 12/16/24 12/18/24 Dalila Carson, JOANN [address] [place] [address] Registered Nurse Family Medicine 12/31/24 Ekta Reynolds 12/31/24 Laurel Monterroso Manager FraudCyber Security Analyst 10/27/22 Saige Aguilar 09/26/23 documented as of this encounter
--- OUTSIDE RECORDS SUMMARY | 2025-01-06 05:58 | XMS_ITS ---
Author Organization [employer] Address [address] [facility] 7t [place] [address] Care Team Providers Care Grain Handler Name Role Phone Radha Jamison DO Primary Care Provider Nelia Sullivan PharmD Unavailable [phone] Dalila Carson RN Unavailable [phone] Ekta Reynolds Unavailable [facility] Complex Status:Outreach In Progress (Enrolling) Start date:12/31/2024 Enrollment reason:Referred by provider Overview Home Health Utilization- Please coordinate with Dalila for connection of services with [facility]RE[facility]PER[facility] for care home reduction. Please outreach for enrollment. Case Team Name Relationship Phone Ekta Reynolds(Responsible Staff) [phone] Continued Care and Services Coordination
--- OUTSIDE RECORDS SUMMARY | 2025-01-06 05:58 | XMS_ITS | Encounter Summary ---
Author Organization [employer] Address [address] [facility] 7t [place] [address] Care Team Providers Care Stogie Packer Name Role Phone Radha Jamison DO Primary Care Provider Nelia Sullivan PharmD Unavailable Letty Rinaldi Unavailable Dalila Carson RN Unavailable [phone] Ekta Reynolds Unavailable Reason for Visit * Reason Comments Med Refill Encounter Details Date Type Department Care Team (Late st Contact Info) Description 03/05/2024 Telephone [facility] MEDICINE [address] [place], [place] [phone] Radha Jamison DO [address] [place], [place] [phone] Med Refill Social History Tobacco Use Types [...] 01/07/2025 10:00 AM EST Medication Management [facility] MEDICINE [address] [place] [address] Nelia Sullivan PharmD [address] [place] [address] 03/13/2025 9:30 AM EST Office Visit [facility] OPTOMETRY [address] [place] [address] Radha Taylor, OD [address] [place] [address] documented as of this encounter Goals Goal Patient Goal Type Associated Problems Recent Progress Patient-Stated? Author Record your blood pressure once per day Blood Pressure No Nelia Sullivan, PharmD Blood Pressure < 140/90 Blood Pressure 154/76(2024 2:07 PM EST) No Nelia Sullivan, PharmD Smoking cessation General No Nelia Sullivan, PharmD Patient will adhere to medication regimen General No Nelia Slulivan, PharmD Hemoglobin A1c < 7 Result Component [...] Date End Date Radha Jamison DO [address] [place] [address] PCP - General Family Medicine 01/26/12 Nelia Sullivan PharmD [address] [place] [address] Pharmacist Internal Medicine 08/31/23 Letty Rinaldi 12/16/24 12/18/24 Dalila Carson, JOANN [address] [place] [address] Registered Nurse Family Medicine 12/31/24 Ekta Reynolds 12/31/24 Laurel Monterroso Picc NurseSponsorship Manager 10/27/22 Saige Aguilar 09/26/23 documented as of this encounter
--- OUTSIDE RECORDS SUMMARY | 2025-01-06 05:59 | XMS_ITS | Encounter Summary ---
Author Organization [employer] Address [address] [facility] 7t [place] [address] Care Team Providers Care Ssas Developer Name Role Phone Radha Jamison DO Primary Care Provider Abdias Murillo PharmD Unavailable Unavail able Nelia Sullivan PharmD Unavailable Letty Rinaldi Unavailable Dalila Carson RN Unavailable [phone] Ekta Reynolds Unavailable Reason for Visit * Reason Comments Med Refill Encounter Details Date Type Department Care Team (Late st Contact Info) Description 08/01/2023 Refill [facility] [address] [place], [place] [phone] Radha Jamison DO 230 [place], [place] [phone] Chronic bilateral low back pain, unspecified whether [...] 10:00 AM EST Medication Management [facility] [address] [place] [address] Nelia Sullivan PharmD 230 [place] [address] 03/13/2025 9:30 AM EST Office Visit [facility] [address] [place] [address] Radha Taylor, OD 267 [place] [address] documented as of this encounter Goals Goal [...] documented as of this encounter Care Teams Ssas Developer Relationship Specialty Start Date End Date Radha Jamison DO 230 [place] [address] PCP - General Family Medicine 01/26/12 Abdias Murillo, PharmD 230 [place] [address] Pharmacist Internal Medicine 03/21/22 08/30/23 Nelia Sullivan PharmD 230 [place] [address] Pharmacist Internal Medicine 08/31/23 Letty Rinaldi 12/16/24 12/18/24 Dalila Carson, JOANN [address] [place] [address] Registered Nurse Family Medicine 12/31/24 Ekta Reynolds 12/31/24 Laurel Monterroso Magnetic Testing TechnicianPipeline Welder 10/27/22 Saige Aguilar 09/26/23 documented as of this encounter
--- OUTSIDE RECORDS SUMMARY | 2025-01-06 05:59 | XMS_ITS | Encounter Summary ---
Author Organization [employer] Address [address] [facility] 7t [place] [address] Care Team Providers Care Signal Repairer Name Role Phone Radha Jamison DO Primary Care Provider Abdias Murillo PharmD Unavailable Unavail able Nelia Sullivan PharmD Unavailable [phone] Letty Rinaldi Unavailable Dalila Carson RN Unavailable [phone] Ekta Reynolds Unavailable Reason for Visit * Reason Comments Med Refill Encounter Details Date Type Department Care Team (Late Contact Info) Description 11/10/2022 Refill [facility] 230 [place], [place] [phone] Radha Jamison DO 230 [place] [address] Chronic gastroesophageal reflux disease Social History Tobacco [...] 10:00 AM EST Medication Management [facility] 230 [place] [address] Nelia Sullivan PharmD [address] [place] [address] 03/13/2025 9:30 AM EST Office Visit [facility] OPTOMETRY [address] [place] [address] Radha Taylor, OD [address] [place] [address] documented as of this encounter Goals Goal [...] documented as of this encounter Care Teams Signal Repairer Relationship Specialty Start Date End Date Radha Jamison DO [address] [place] [address] PCP - General Family Medicine 01/26/12 Abdias Murillo, PharmD [address] [place] [address] Pharmacist Internal Medicine 03/21/22 08/30/23 Nelia Sullivan PharmD [address] [place] [address] Pharmacist Internal Medicine 08/31/23 Letty Rinaldi 12/16/24 12/18/24 Dalila Carson, JOANN [address] [place] [address] Registered Nurse Family Medicine 12/31/24 Ekta Reynolds 12/31/24 Laurel Monterroso Disability RepresentativeCrosscutter 10/27/22 Saige Aguilar 09/26/23 documented as of this encounter
--- OUTSIDE RECORDS SUMMARY | 2025-01-06 05:59 | XMS_ITS | Encounter Summary ---
Author Organization [employer] Address 75 [facility] 7t [place] [address] Care Team Providers Care Radiator Tester Name Role Phone Radha Jamison DO Primary Care Provider Nelia Sullivan PharmD Unavailable Letty Rinaldi Unavailable Dalila Carson RN Unavailable [phone] Ekta Reynolds Unavailable Reason for Visit * Reason Comments Med Refill Encounter Details Date Type Department Care Team (Late st Contact Info) Description 05/17/[address] [facility] MED[facility] [address] [place], [place] [phone] Radha Jamison DO 230 [place], [place] [phone] Chronic bilateral low back pain, unspecified whether [...] 10:00 AM EST Medication Management [facility] MED[facility] [address] [place] [address] Nelia Sullivan, PharmD 230 [place] [address] 03/13/2025 9:30 AM EST Office Visit [facility] OPTOMETRY [address] [place] [address] Radha Taylor, OD [address] [place] [address] documented as of this encounter Goals Goal [...] as of this encounter Care Teams Radiator Tester Relationship Specialty Start Date End Date Radha Jamison DO 230 [place] [address] PCP - General Family Medicine 01/26/12 Nelia Sullivan PharmD 230 [place] [address] Pharmacist Internal Medicine 08/31/23 Letty Rinaldi 12/16/24 12/18/24 Dalila Carson, JOANN [address] [place] [address] Registered Nurse Family Medicine 12/31/24 Ekta Reynolds 12/31/24 Laurel Monterroso Sales Promotion OfficerContinuous Improvement Black Belt 10/27/22 Saige Aguilar 09/26/23 documented as of this encounter
--- OUTSIDE RECORDS SUMMARY | 2025-01-06 05:59 | XMS_ITS | Encounter Summary ---
Author Organization [employer] Address 75 [facility] 7t [place] [address] Care Team Providers Care Winding Machine Operator Name Role Phone Radha Jamison DO Primary Care Provider Abdias Murillo PharmD Unavailable Unavail able Nelia Sullivan PharmD Unavailable Letty Rinaldi Unavailable Dalila Carson RN Unavailable [phone] Ekta Reynolds Unavailable Reason for Visit * Reason Onset Date Comments Durable Medical Equipment 09/08/2022 Encounter Details Date Type Department Care Team (Late st Contact Info) Description 09/08/2022 Telephone [facility] 230 [place], [place] [phone] Radha Jamison DO 230 [place], [place] [phone] Durable Medical Equipment Social History Tobacco Use [...] is not working. Please contact pt at [phone] documented in this encounter Plan of Treatment Upcoming Encounters Date Type Department Care Team (Late st Contact Info) Description 01/07/2025 10:00 AM EST Medication Management [facility] 230 [place] [address] Nelia Sullivan PharmD [address] [place] [address] 03/13/2025 9:30 AM EST Office Visit [facility] OPTOMETRY 267 [place] [address] TarRadha bang, OD 267 [place] [address] documented as of this encounter Goals Goal [...] documented as of this encounter Care Teams Winding Machine Operator Relationship Specialty Start Date End Date Radha Jamison DO [address] [place] [address] PCP - General Family Medicine 01/26/12 Abdias Murillo, PharmD [address] [place] [address] Pharmacist Internal Medicine 03/21/22 08/30/23 Nelia Sullivan, Camron 230 [place] [address] Pharmacist Internal Medicine 08/31/23 Letty Rinaldi 12/16/24 12/18/24 Dalila Carson, JOANN [address] [place] [address] Registered Nurse Family Medicine 12/31/24 Ekta Reynolds 12/31/24 Laurel Monterroso TrainmanBroadcast Engineer 10/27/22 Saige Aguilar 09/26/23 documented as of this encounter
--- OUTSIDE RECORDS SUMMARY | 2025-01-06 05:59 | XMS_ITS | Encounter Summary ---
Author Organization [employer] Address 75 [facility] 7t [place] [address] Care Team Providers Care Clinical Documentation Specialist Name Role Phone Radha Jamison DO Primary Care Provider Abdias Murillo PharmD Unavailable Unavail able Nelia Sullivan PharmD Unavailable Letty Rinaldi Unavailable Dalila Carson RN Unavailable Ekta Reynolds Unavailable Reason for Visit * Reason Onset Date Comments Med Refill 10/24/2022 Encounter Details Date Type Department Care Team (Late st Contact Info) Description 10/24/[address] [facility] 230 [place], [place] [phone] Radha Jamison DO 230 [place], [place] [phone] Med Refill Social History Tobacco Use Types [...] 01/07/2025 10:00 AM EST Medication Management [facility] [address] [place] [address] Nelia Sullivan PharmD [address] [place] [address] 03/13/2025 9:30 AM EST Office Visit [facility] OPTOMETRY [address] [place] [address] Radha Taylor, OD [address] [place] [address] documented as of this encounter Goals Goal [...] as of this encounter Care Teams Clinical Documentation Specialist Relationship Specialty Start Date End Date Radha Jamison DO [address] [place] [address] PCP - General Family Medicine 01/26/12 Abdias Murillo, PharmD [address] [place] [address] Pharmacist Internal Medicine 03/21/22 08/30/23 Nelia Sullivan, KeithD 230 [place] [address] Pharmacist Internal Medicine 08/31/23 Letty Rinaldi 12/16/24 12/18/24 Dalila Carson, RN [address] [place] [address] Registered Nurse Family Medicine 12/31/24 Ekta Reynolds 12/31/24 Laurel Monterroso Manufacturing BakerSenior Network Architect 10/27/22 Saige Aguilar 09/26/23 documented as of this encounter
--- OUTSIDE RECORDS SUMMARY | 2025-01-06 05:59 | XMS_ITS | Encounter Summary ---
Author Organization [employer] Address [address] [facility] 7t [place] [address] Care Team Providers Care Manager Of Change Name Role Phone Radha Jamison DO Primary Care Provider [phone] Abdias Murillo PharmD Unavailable Unavail able Nelia Sullivan PharmD Unavailable Letty Rinaldi Unavailable Dalila Carson RN Unavailable [phone] Ekta Reynolds Unavailable Reason for Visit * Reason Comments Med Refill Encounter Details Date Type Department Care Team (Late st Contact Info) Description 08/30/2023 Refill [facility] 230 [place], [place] [phone] Radha Jamison DO 230 [place], [place] [phone] Chronic bilateral low back pain, unspecified whether [...] the past 12 months, has t he [employer], oil or water company threatened to [...] Description 01/07/2025 10:00 AM EST Medication Management [facility] [address] [place] [address] Nelia Sullivan PharmD 230 [place] [address] 03/13/2025 9:30 AM EST Office Visit [facility] OPTOMETRY [address] [place] [address] TarkaRadha, OD 267 [place] [address] documented as of this encounter Goals Goal [...] of this encounter Care Teams Manager Of Change Relationship Specialty Start Date End Date Radha Jamison DO [address] [place] [address] PCP - General Family Medicine 01/26/12 Abdias Murillo PharmD [address] [place] [address] Pharmacist Internal Medicine 03/21/22 08/30/23 Nelia Sullivan PharmD [address] [place] [address] Pharmacist Internal Medicine 08/31/23 Letty Rinaldi 12/16/24 12/18/24 Dalila Carson, JOANN [address] [place] [address] Registered Nurse Family Medicine 12/31/24 Ekta Reynolds 12/31/24 Laurel Monterroso Cognos LeadManagement Developer 10/27/22 Saige Aguilar 09/26/23 documented as of this encounter
--- OUTSIDE RECORDS SUMMARY | 2025-01-06 05:59 | XMS_ITS | Encounter Summary ---
Author Organization [employer] Address 75 [facility] 7t [place] [address] Care Team Providers Care Diabetes Physician Name Role Phone Radha Jamison DO Primary Care Provider Abdias Murillo PharmD Unavailable Unavail able Nelia Sullivan PharmD Unavailable Letty Rinaldi Unavailable Dalila Carson RN Unavailable [phone] Ekta Reynolds Unavailable Reason for Visit * Reason Comments Med Refill Encounter Details Date Type Department Care Team (Late st Contact Info) Description 04/14/2023 Refill [facility] 230 [place], [place] [phone] Radha Jamison DO 230 [place], [place] [phone] Type 2 diabetes mellitus with hyperglycemia, with long-term current use of insulin ([facility]) Social History Tobacco Use Types Packs/Day [...] Description 01/07/2025 10:00 AM EST Medication Management [facility] [address] [place] [address] Nelia Sullivan PharmD [address] [place] [address] 03/13/2025 9:30 AM EST Office Visit [facility] OPTOMETRY [address] [place] [address] TarkaRadha, OD 267 [place] [address] documented as of this encounter Goals Goal [...] documented as of this encounter Care Teams Diabetes Physician Relationship Specialty Start Date End Date Jurcsak, Radha, DO 230 [place], [place] [phone] PCP - General Family Medicine 01/26/12 Abdias Murillo, KeithD [address] [place] [address] Pharmacist Internal Medicine 03/21/22 08/30/23 Nelia Sullivan PharmD 230 [place] [address] Pharmacist Internal Medicine 08/31/23 Letty Rinaldi 12/16/24 12/18/24 Dalila Carson, JOANN [address] [place] [address] Registered Nurse Family Medicine 12/31/24 Ekta Reynolds 12/31/24 Laurel Monterroso Core DropperBattery Plate Assembler 10/27/22 Saige Aguilar 09/26/23 documented as of this encounter
--- OUTSIDE RECORDS SUMMARY | 2025-01-06 05:59 | XMS_ITS | Encounter Summary ---
Author Organization [email or web address] Address [address] [facility] 7t [place] [address] Care Team Providers Care Nurses' Association Executive Director Name Role Phone Radha Jamison DO Primary Care Provider Abdias Murillo PharmD Unavailable Unavail able Nelia Sullivan PharmD Unavailable Letty Rinaldi Unavailable Dalila Carson RN Unavailable [phone] Ekta Reynolds Unavailable Reason for Visit * Reason Comments Med Refill Encounter Details Date Type Department Care Team (Late st Contact Info) Description 10/25/2022 Refill [facility] MED[facility]INE 230 [place], [place] [phone] Radha Jamison DO [address] [place] [address] Chronic bilateral low back pain, unspecified whether [...] Management [facility] MED[facility]INE [address] [place] [address] Nelia Sullivan PharmD [address] [place] [address] 03/13/2025 9:30 AM EST Office Visit [facility] OPTOMETRY [address] [place] [address] Radha Taylor, OD [address] [place] [address] documented as of this encounter Goals Goal Patient Goal Type Associated Problems Recent Progress Patient-Stated? Author Hemoglobin A1c < 7 Result Component 10.1( 12:48 PM EDT) No Abdias Mruillo PharmD documented as of this encounter Visit Diagnoses Diagnosis Chronic bilateral low back pain, unspecified whether sciatica present documented in this encounter Additional Health Concerns Assessment Noted Time PHQ-9 Depression Total Score: 14 023 12:00 PM EST documented as of this encounter Care Teams Nurses' Association Executive Director Relationship Specialty Start Date End Date Radha Jamison DO [address] [place] [address] PCP - General Family Medicine 01/26/12 Abdias Murillo, KeithD [address] [place] [address] Pharmacist Internal Medicine 03/21/22 08/30/23 Nelia Sullivan PharmD [address] [place] [address] Pharmacist Internal Medicine 08/31/23 Letty Rinaldi 12/16/24 12/18/24 Dalila Carson, JOANN [address] [place] [address] Registered Nurse Family Medicine 12/31/24 Ekta Reynolds 12/31/24 Laurel Monterroso Stripper OpaquerFlavorings Compounder 10/27/22 Saige Aguilar 09/26/23 documented as of this encounter
--- OUTSIDE RECORDS SUMMARY | 2025-01-06 05:59 | XMS_ITS | Clinical Summary ---
Demographics Address [address] [facility] [address] [place] [address] Mobile Phone Home Phone Preferred Language es Marital Status Unknown Mormonism Affiliation Unknown Race White Ethnic Group Unknown Author Organization [employer] Address [address] [facility] [address] [place] [address] Care Team Providers Care Relationship Advisor Name Role Phone ShaheenRadha Primary Care Provider [phone] Nelia Sullivan PharmD Unavailable [phone] Dalila Carson RN Unavailable [phone] Ekta Reynolds Unavailable Allergies Active Allergy [...] XL (Procardia XL) 90 MG 24 hr tabletIndications:E ssential hypertension Take 1 tablet (90 mg) by [...] 2:27 PM EST 024 Active Continuous Glucose Youth Leader (De[employer] Works.coStyle Jenn 3 Metamora) device 1 each 3 times daily. Use daily as directed for CGM 1 each 025 Active glucose blood (FreeStyle Precision Julian Test) test strip Use to test blood sugar 3 times daily 100 each 12 12/28/19 2:27 PM EST 025 2025 Active TRUEplus Lancets 33G misc TEST BLOOD SUGAR UP TO THREE TIMES DAILY DIRECTED 100 each 12/28/19 2:27 PM EST 025 Active empagliflozin-metFO RMIN (Synjardy) 12.5-1000 MG Take 1 tablet by mouth with breakfast and with evening meal. 60 tablet 11 12/28/19 2:27 PM EST 025 2025 Active Asmanex HFA 100 MCG/ACT aerosol INHALE 2 PUFFS BY MOUTH TWICE DAILY RINSE MOUTH AFTER USING. 13 g 11 12/28/19 2:27 PM EST Active naloxone (Narcan) 4 mg/0.1 mL nasal sprayIndications:Ch ronic bilateral low back pain, unspecified whether sciatica [...] Ferrous Sulfate (iron) 325 (65 Fe) MG tabletIndications:A nemia, unspecified type TAKE 1 TABLET BY MOUTH TWICE DAILY IN THE MORNING AND AT BEDTIME 180 tablet 3 12/28/19 2:27 PM EST 025 Active docusate sodium (Colace) 100 MG capsuleIndications: Anemia, unspecified type TAKE 1 CAPSULE BY MOUTH TWICE DAILY IN THE MORNING AND IN THE EVENING FOR CONSTIPATION 180 capsule 3 12/28/19 2:27 PM EST Active ezetimibe (Zetia) 10 MG tablet Take 1 tablet (10 mg) by mouth Once per day. 90 tablet 1 Active aspirin (Aspirin Low Dose) 81 MG EC tabletIndications:H ypertension, unspecified type TAKE 1 TABLET BY MOUTH EVERY EVENING 90 tablet Active hydroCHLOROthiazide (HYDRODiuril) 50 MG tablet Take 1 tablet (50 mg) by mouth Once per day. 90 tablet 1 12/28/19 2:27 PM EST Active fluticasone (Flonase) 50 MCG/ACT nasal spray INSTILL 2 SPRAYS IN EACH NOSTRIL ONCE DAILY 48 g 2 12/28/19 2:27 PM EST Active Diclofenac Sodium 1 % gel APPLY 2 GRAMS TOPICALLY TO AFFECTED AREA(S) 4 TIMES A DAY IN THE MORNING, AT NOON, IN THE EVENING, AND AT BEDTIME NEEDED FOR PAIN 200 g 2 Active insulin pen needle (Pentips Generic Pen Fostoria) 32G x 4 mm miscIndications:Typ e 2 diabetes mellitus with hyperglycemia, with long-term current use of insulin ([facility]) Use as instructed to inject insulin once daily 100 each 3 12/28/19 2:27 PM EST Active Semaglutide,0.25 or 0.5MG/DOS, (Ozempic, 0.25 or 0.5 MG/DOSE,) 2 MG/3ML solution pen-injectorIndicat ions:Type 2 diabetes mellitus with hyperglycemia, with long-term current use of insulin ([facility]) Inject 0.5 mg under the skin 1 (one) time per week. 3 mL 12/28/19 2:27 PM EST Active carvedilol (Coreg) 25 MG tabletIndications:H ypertension, unspecified type TAKE 1 TABLET BY MOUTH TWICE DAILY IN THE MORNING AND IN THE EVENING WITH FOOD 180 tablet 1 12/28/19 2:27 PM EST Active Eliquis 5 MG tabletIndications:S plenic infarct Take 1 tablet (5 mg) by mouth 2 times daily. 60 tablet 3 12/28/19 2:27 PM EST Active Ventolin HFA 108 (90 Base) MCG/ACT inhalerIndications: Mild persistent asthma without complication INHALE 2 PUFFS BY MOUTH EVERY 6 HOURS NEEDED FOR WHEEZING OR SHORTNESS OF BREATH 18 g 2 025 Active Blood Pressure Monitoring (Omron 3 Series BP Monitor) deviceIndications:E ssential hypertension USE TO CHECK BLOOD PRESSURE ONCE A DAY 1 each Active lidocaine (Lidoderm) 5 % patch APPLY 1 TO 2 PATCHES TOPICALLY TO SKIN, LEAVE ON FOR 12 HOURS AND OFF FOR 12 HOURS DIRECTED 60 patch 3 025 Active mirtazapine (Remeron) 45 MG tabletIndications:M ood disorder (CMS/HCC) TAKE 1 TABLET BY MOUTH AT BEDTIME 30 tablet 3 Active gabapentin (Neurontin) 400 MG capsule Take 400 mg by mouth at bedtime. 025 Active hydrALAZINE (Apresoline) 25 MG tablet Take 25 mg by mouth 3 times daily. 025 Active nitroglycerin (Nitrostat) 0.3 MG SL tabletIndications:C oronary artery disease of stillaguam[place] artery of stillaguam[place] heart with stable angina pectoris DISSOLVE 1 TABLET UNDER THE TONGUE EVERY 5 MINUTES NEEDED FOR CHEST PAIN. CALL 911 IF NO RELIEF 25 tablet 1 025 Active amitriptyline (Elavil) 50 MG tabletIndications:O ther chronic pain TAKE 1 TABLET BY MOUTH AT BEDTIME 30 tablet 3 025 Active escitalopram (Lexapro) 20 MG tabletIndications:D epression, unspecified depression type TAKE 1 TABLET BY MOUTH EVERY EVENING 90 tablet 3 025 Active loratadine (Claritin) 10 MG tablet TAKE 1 TABLET BY MOUTH EVERY DAY 90 tablet 3 12/28/19 25 2:27 PM EST 025 Active pioglitazone (Actos) 15 MG tabletIndications:T ype 2 diabetes mellitus with hyperglycemia, with long-term current use of insulin ([facility]) TAKE 1 TABLET BY MOUTH EVERY MORNING 90 tablet 3 12/28/19 25 2:27 PM EST 025 Active telmisartan (Micardis) 80 MG tabletIndications:R esistant hypertension,Type 2 diabetes mellitus with hyperglycemia, with long-term current use of insulin ([facility]) Take 1 tablet (80 mg) by mouth Once per day. 90 tablet 1 12/28/19 25 2:27 PM EST Active rosuvastatin (Crestor) 40 MG tablet Take 1 tablet (40 mg) by mouth at bedtime. 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 Active Additional Information Patient not taking.Reported on 12/06/2024 Multiple Vitamin (Multivitamin) tabletIndications:H ypertension, unspecified type TAKE 1 TABLET BY MOUTH EVERY MORNING WITH FOOD 90 tablet 12/28/19 2:27 PM EST Active triamcinolone (Kenalog) 0.1 % ointment Apply topically if needed in the morning and at bedtime for rash for up to 28 days. 30 g 1 12/31/19 25 2:06 PM EST 2024 Active hydrOXYzine pamoate (Vistaril) 25 MG capsuleIndications: Mood disorder (CMS/HCC) TAKE 1 CAPSULE BY MOUTH EVERY 6 HOURS 60 capsule 2 Active Multiple Vitamin (Multivitamin) tabletIndications:H ypertension, unspecified type TAKE 1 TABLET BY MOUTH EVERY MORNING WITH FOOD 90 tablet 025 2024 Discontinued hydrOXYzine pamoate (Vistaril) 25 MG capsuleIndications: Mood disorder (CMS/HCC) TAKE 1 CAPSULE BY MOUTH EVERY SIX HOURS 60 capsule 2 12/28/19 25 2:27 PM EST 2024 Discontinued Active Problems Problem Noted Date Diagnosed Date Splenic infarct 10/03/2024 Assessment & Plan (10/03/2024 10:27 AM EDT): Seems to be unprovoked I refilled her apixaban, I will refer her to hematology for further input 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 10/03/2024 Assessment [...] B vaccine -pap wnl May 2014 with [employer] SUPER[employer]ENDENT, advised schedule f/u, contact info given -mammo [...] -she will meet w/ HIM RN re: [employer]cs Obstructive sleep apnea 12/04/2014 Tobacco dependence [...] metformin and actos as rx'd -referred to [facility] for CTDM -cont regular FS monitoring [...] the day and to continue care w motion picture scene builder and PCP ------ Addendum : EMT came and package pick up pt but once she was taken to ambulance pt decide not to go to ED and signed leave AMA 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 05/04/2020 03/18/2022 Encounters Date Type Department Care Team Description 01/03/2025 Telephone [facility] [address] [place] [phone] Radha Jamison DO Appointment Request 01/02/[address] [phone] Radha Jamison DO Mood disorder (CMS/HCC) 12/31/2024 Patient Outreach [address] [address] Radha Jamison DO Care Coordination ([facility] Chart Review) 12/31/2024 Patient Outreach [address] [phone] Radha Jamison DO Care Management ([facility]- chart review) 12/31/2024 Patient Outreach [address] [address] Radha Jamison, 12/30/[address] [address] Radha Jamison DO Appointment Request 12/27/2024 11:45 AM EST Office Visit [address] [address] Radha Jamison, 12/27/2024 Travel 12/25/[address] [address] Radha Jamison DO Chart Prep 12/23/[address] [address] Audrey Foreman MD No Show 12/20/[address] [address] Radha Jamison DO Appointment Request 12/19/[address] [address] Radha Jamison DO chart prep 12/18/2024 Patient Outreach [facility] [address] [place] [phone] Radha Jamison DO Care Coordination (Communication to pts Assigned CP Coordinator ) 12/17/[address] [address] Radha Jamison DO Order 12/17/[address] [address] Radha Jamison DO ER Follow-up 12/17/[address] [address] Radha Jamison DO 12/17/2024 Patient Outreach [facility] [address] [place] [phone] Radha Jamison DO Care Coordination (CP Care Coordination Chart Review) 12/16/2024 Patient Outreach [facility] [address] [place] [address] Radha Jamison DO 12/16/2024 Refill [facility] [address] [place] [address] Radha Jamison DO Hypertension, unspecified type 12/16/2024 Orders Only GENERIC EXTERNAL DATA DEPARTMENT Provider, Generic External Data 2024 Orders Only GENERIC EXTERNAL DATA DEPARTMENT Provider, Generic External Data 12/06/2024 Travel 12/05/2024 Telephone [facility] [address] [place] [address] Radha Jamison DO Care Coordination (Utilization Home Health) 12/05/2024 Telephone [facility] [address] [place] [address] Radha Jamison DO Care Coordination (Home Health Utilization) 12/05/2024 Telephone [facility] [address] [place] [address] Radha Jamison DO 12/03/2024 Orders Only [facility] [address] [place] [address] Radha Jamison DO Type 2 diabetes mellitus with hyperglycemia, with long-term current use of insulin (HCC) (Primary Dx); Essential (primary) hypertension 11/26/2024 Refill [facility] [address] [place] [address] Radha Jamison DO Depression, unspecified depression type; Type 2 diabetes mellitus with hyperglycemia, with long-term current use of insulin (HCC) 11/22/2024 Refill [facility] [address] [place] [address] Radha Jamison DO Other chronic pain 11/17/2024 Refill [facility] [address] [place] [address] Vickie Penaloza MD 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 stable angina pectoris 11/15/2024 2:00 PM EDT Office Visit [facility] [address] [place] [address] Aziza Alas NP Hospital discharge follow-up (Primary Dx); Resistant hypertension; Bilateral carotid artery stenosis 11/15/2024 Travel 11/14/2024 Telephone [facility] [address] [place] [address] Radha Jamison DO Appointment Request 11/08/2024 Telephone [facility] [address] [place] [address] Patricia Rinaldi, KeithD 11/05/2024 10:00 AM EDT Office Visit [facility] [address] [facility] [place] [address] Marita Contreras, OD Type 2 diabetes mellitus with hyperglycemia, with long-term current use of insulin ([facility]) (Primary Dx) 11/05/2024 Telephone [facility] [address] [place] [address] Nelia Sullivan, KeithD chart prep 11/05/2024 Travel 10/27/2024 Refill [facility] [address] [place] [address] Radha Jamison DO Mood disorder (CMS/HCC) 10/25/2024 Refill [facility] [address] [place] [address] Radha Jamison DO 10/24/2024 Refill [facility] [address] [place] [address] Radha Jamison DO Essential hypertension 10/24/2024 Orders Only GENERIC EXTERNAL DATA DEPARTMENT Provider, Generic External Data 10/21/2024 Refill [facility] [address] [place] [address] Radha Jamison DO Mild persistent asthma without complication 10/18/2024 Patient Outreach [facility] [address] [place] [address] Radha Jamison DO Transition Of Care (Tcm) (HDF scheduled) 10/15/2024 Orders Only GENERIC EXTERNAL DATA DEPARTMENT Provider, Generic External Data 10/07/2024 Telephone [facility] [address] [place] [address] Jurcsak, Radha, DO Nurse Triage from Last 3 Months [...] Management [facility] [address] [place] [address] Nelia Sullivan, PharmD [address] [place] [address] 03/13/2025 9:30 AM EST Office Visit [facility] [address] [place] [address] Radha Taylor, OD [address] [place] [address] Health Maintenance Due Date Last Done Comments CT Colonography 1961 Colonoscopy 1961 Colorectal Cancer Screening 1961 Dental Oral Exam 1961 Dental Prophylaxis 1961 Dental X-Ray: Bitewings 1961 FIT DNA/Cologuard 1961 FIT 1961 FOBT 1961 Sigmoidoscopy 1961 Diabetes: Foot Exam 12/16/1971 Eye Exam 12/16/1971 DTaP/Tdap/Td Vaccines (1 - Tdap) 1980 Pap Smear 1982 Cervical Cancer Screening 12/16/1991 HPV/Cotest 12/16/1991 RSV Patients and Patients Aged 60 years or older (1 - Risk 50-74 years 1-dose series) 12/16/2011 Zoster Vaccines (1 of 2) 12/16/2011 Pneumococcal Vaccine: 50+ Years (2 of 2 - PCV) 11/18/2014 11/18/2013, 05/26/2005 Mammogram 10/07/2023 10/06/2021, 10/06/2021 Diabetes: Urine Protein Screening 05/14/2024 05/15/2023, 05/15/2023, 08/08/2022, Additional history exists COVID-19 Vaccine ( - season) 2024 10/02/2020 Influenza Vaccine (#1) 2024 11/18/2013, 2009 Lung Cancer Screening 01/08/2025 01/09/2024 Alcohol/Substance Use Screening 01/31/2025 02/01/2024 Diabetes: Hemoglobin A1C 03/08/2025 025, 09/03/2024, 05/24/2024, Additional history exists Depression Monitoring 05/16/2025 11/15/2024, 025 Dental X-Ray: Full Mouth 07/13/2025 07/12/2022, 02/14 Lipid Panel 07/24/2025 07/24/2024, 04/0 02/2023, 08/08/2022, [...] Blood Pressure 154/76(2024 2:07 PM EST) No AnaiiaFeliceNelia, PharmD Smoking cessation General [...] Plan Patient has chronic kidney disease No kEta Reynolds Patient has chronic kidney disease Care Plan Patient has chronic kidney disease No Ekta Reynolds Patient has chronic kidney disease Care Plan Patient has chronic kidney disease No Ekta Reynolds Weekly blood pressure task Care Plan Weekly blood pressure task No Josue Reynolds Weekly blood pressure task Care Plan Weekly blood pressure task No Josue Reynolds Weekly blood pressure task Care Plan Weekly blood pressure task No Josue Reynolds Patient has diabetic eye disease Care Plan Patient has diabetic eye disease No Josue Reynolds Patient has diabetic eye disease Care Plan Patient has diabetic eye disease No Josue Reynolds Patient has diabetic eye disease Care Plan Patient has diabetic eye disease No Josue Reynolds Patient has chronic kidney disease Care Plan Patient has chronic kidney disease No Josue Reynolds Patient has chronic kidney disease Care Plan Patient has chronic kidney disease No Josue Reynolds Patient has chronic kidney disease Care Plan Patient has chronic kidney disease No Josue Reynolds Procedures Procedure Name Priority Date/Time Associated [...] TROPONIN I Routine 10/15/2024 2:37 AM EDT LIPID PANEL, STANDARD Routine 07/24/2024 10:41 AM [...] ID NOW (ULLOA) (12/16/2024 2:08 AM EST) IDNOW SERIAL# [id number] [facility] COVID-19 TEST Negative Negative [facility] COVID-19 NOTE See Note [facility] Comment: Results are for the identification of SARS-CoV2 RNA. TheSARS-CoV2 RNA is generally detectable in respiratory samplesduring the acute phase of infection. Positive results areindicative of the presence of SARS-CoV-2 RNA; clinicalcorrelation with patient history and other diagnosticinformation is necessary to determine patient infectionstatus. Positive results do not rule out bacterial infectionor co- infection with other viruses.Testing facilities within the [place] and itsterritories are required to report all [...] use by authorized laboratories.Testing performed on the [employer] NOW utilizing NAAT. 12/16/2024 2:08 AM EST 12/16/2024 2:12 AM EST us Generic External Data Provider LAB MOLECULAR AKHIL GNOSTICS ORDERABLES Final Result [facility] [address] [place] [phone] * (ABNORMAL) CBC auto differential (2024 11:12 PM EST) Only the most recent of2 resultswithin the time period is included. White Blood Count 8.1 4.8 - 10.8 X10*3/uL [facility] Red Blood Count 4.03(L) 4.20 - 5.50 X10*6/uL [facility] Hemoglobin 11.5(L) 12.0 - 16.0 g/dl [facility] Hematocrit 35.7(L) 37.0 - 47.0 % [facility] Mean Corpuscular Volume 88.6 80.0 - 98.0 fL [facility] Mean Corpuscular Hemoglobin 28.5 27.0 - 33.0 pg [facility] Mean Corpuscular HGB Conc 32.2 31.0 - 35.0 g/dl [facility] Red Cell Distribution Width 13.8 11.0 - 16.0 % [facility] Platelet Count 318 160 - 400 X10*3/uL [facility] Mean Platelet Volume 9.0(L) 9.4 - 12.3 fL [facility] Neutrophils Percent Auto 61.1 45 - 73 % [facility] Imm Gran Pct Auto 0.2 0.0 - 0.4 % [facility] Lymphocytes Percent Auto 27.6 20 - 40 % [facility] Monocytes Percent Auto 6.9 2 - 11 % [facility] Eosinophils Percent Auto 3.6 0 - 4 % [facility] Basophils Percent Auto 0.6 0 - 2 % [facility] NRBC Pct Auto 0.0 0.0 - 0.2 /100WBC [facility] Neutrophils Absolute Auto 5.0 2.0 - 8.3 x10*3/uL [facility] Imm Gran Abs Auto 0.02 0.00 - 0.03 X10*3/uL [facility] Lymphocytes Absolute Auto 2.2 1.2 - 4.9 X10*3/uL [facility] Monocytes Absolute Auto 0.6 0.1 - 1.2 X10*3/uL [facility] Eosinophils Absolute Auto 0.3 0.0 - 0.4 X10*3/uL [facility] Basophils Absolute Auto 0.1 0.0 - 0.2 X10*3/uL [facility] NRBC Abs Auto 0.000 0.0 - 0.012 X10*3/uL [facility] 2024 11:1 2 PM EST 2024 11:16 PM EST us Generic External Data Provider LAB BLOOD ORDERAB LES Final Result [facility] [address] [place] [phone] * (ABNORMAL) Comprehensive Metabolic Panel (2024 11:12 PM EST) Only the most recent of2 resultswithin the time period is included. Sodium 141 135 - 145 mmol/L [facility] Potassium 3.7 3.3 - 5.1 mmol/L [facility] Chloride 107 96 - 108 mmol/L [facility] Carbon Dioxide 27 22 - 29 mmol/L [facility] Anion Gap 11(L) 12 - 20 [facility] Urea Nitrogen (BUN) 16 9 - 16 mg/dL [facility] Creatinine, Serum 1.05 0.5 - 1.4 mg/dL [facility] Creatinine Clr Calc Pharmacy 48.4 [facility] Comment:Provided height and weight: 154.94 cm,68.039 kg.eGFR (calculated from the MDRD study equation) and eCrCl(calculated from the Cockcroft-Gault equation) are based ondifferent parameters and may not yield comparable results.If eCrCl result is absurd, please check patient'sheight/weight. Estimated Glomerular Filt Rate 53 [facility] Comment:Chronic Kidney Disea se: Estimated GFR < 60 mL/min/1.03s2Eviees Kidney Disease: Estimated GFR < 15 mL/min/1.73m2 Glucose 174(H) 60 - 115 mg/dL [facility] Calcium 8.4 8.4 - 10.2 mg/dL [facility] Bilirubin, Total 0.2 0.0 - 1.0 mg/dL [facility] Aspartate Amino Transferase 16 5 - 31 U/L [facility] Alanine Aminotransferase <6 0 - 31 U/L [facility] Total Protein 5.7(L) 6.5 - 8.0 g/dL [facility] Albumin Level 3.0(L) 3.5 - 5.0 g/dL [facility] Alkaline Phosphatase 93 39 - 117 U/L [facility] 2024 11:1 2 PM EST 2024 11:16 PM EST us Generic External Data Provider LAB BLOOD ORDERAB LES Final Result [facility] [address] [place] [phone] * (ABNORMAL) POCT Hgb A1c (12/06/2024 12:48 PM EDT) Hemoglobin A1C 10.1(A) 4.0 - 5.7 % Blood 12/06/2024 12:4 8 PM EDT us Radha Jamison DO POINT OF CARE TEST ENTER/BHARGAVI T ORDERABLES Final Result * Lipase (10/24/2024 12:49 AM EDT) Lipase 13 8 - 78 U/L [facility] 10/24/2024 12:4 9 AM EDT 10/24/2024 12:51 AM EDT Generic External Data Provider LAB BLOOD ORDERAB LES Final Result Performing Organization Address [facility] Co de Phone Number [facility] [address] [place] [phone] * (ABNORMAL) Hepatic Function Panel (10/24/2024 12:49 AM EDT) Pathologist [facility] Bilirubin, Total 0.2 0.0 - 1.0 mg/dL [facility] Bilirubin, Direct <0.2 0.0 - 0.5 mg/dL [facility] Aspartate Amino Transferase 9 5 - 31 U/L [facility] Alanine Aminotransferase 6 0 - 31 U/L [facility] Total Protein 5.6(L) 6.5 - 8.0 g/dL [facility] Albumin Level 3.0(L) 3.5 - 5.0 g/dL [facility] Alkaline Phosphatase 94 39 - 117 U/L [facility] 10/24/2024 12:4 9 AM EDT 10/24/2024 12:51 AM EDT Generic External Data Provider LAB BLOOD ORDERAB LES Final Result Performing Organization Address [facility] Co de Phone Number [facility] [address] [place] [phone] * (ABNORMAL) Basic Metabolic Panel (10/24/2024 12:49 AM EDT) Sodium 141 135 - 145 mmol/L [facility] Potassium 4.3 3.3 - 5.1 mmol/L [facility] Chloride 108 96 - 108 mmol/L [facility] Carbon Dioxide 25 22 - 29 mmol/L [facility] Anion Gap 12 12 - 20 [facility] Urea Nitrogen (BUN) 25(H) 9 - 16 mg/dL [facility] Creatinine, Serum 1.12 0.5 - 1.4 mg/dL [facility] Creatinine Clr Calc Pharmacy 47.8 [facility] Comment:Provided height and weight: 160.02 cm,66.9 kg.eGFR (calculated from the MDRD study equation) and eCrCl(calculated from the Cockcroft-Gault equation) are based ondifferent parameters and may not yield comparable results.If eCrCl result is absurd, please check patient'sheight/weight. Estimated Glomerular Filt Rate 49 [facility] Comment:Chronic Kidney Disea se: Estimated GFR < 60 mL/min/1.56g3Epfspv Kidney Disease: Estimated GFR < 15 mL/min/1.73m2 Glucose 238(H) 60 - 115 mg/dL [facility] Calcium 8.2(L) 8.4 - 10.2 mg/dL [facility] 10/24/2024 12:4 9 AM EDT 10/24/2024 12:51 AM EDT us Generic External Data Provider LAB BLOOD ORDERAB LES Final Result [facility] [address] [place] [phone] * VASC US Carotid Artery Duplex Bilateral (10/15/2024 1:19 PM EDT) 10/15/2024 1:19 PM EDT Narrative [facility] - 10/15/2024 2:54 PM EDT [address] [address] Ultrasound Report Signed Patient: Rocío Hallman MR#: [id number] : 1960 Acct:[id number] Age/Sex: 63 / F ADM Date: 10/15/24 Loc: [facility]: Alan Lopez MD Ordering Physician: Caleb Aragon MD Date of Service: 10/15/24 Procedure(s): US carotid duplex BI Accession Number(s): [id number] cc: [facility]; Caleb Aragon MD Reason for Exam: [...] 10/15/24 1451 DD/ 1319 TD/TT: 10/15/24 1342 Safety Grooving Machine Operator: Procedure Note Donotuseinterpreter, Image - 10/15/[address] [address] Ultrasound Report Signed Patient: Servando Hallman#: [id number] : 2Acct:[id number] Age/Sex: 63 / FADM Date: 10/15/24 Loc: [facility]: Alan Lopez MD Ordering Physician: Caleb Aragon MD Date of Service: 10/15/24 Procedure(s): US carotid duplex BI Accession Number(s): [id number] cc: [facility]; Caleb Aragon MD Reason for Exam: [...] 10/15/24 1451 DD/ 1319 TD/TT: 10/15/24 1342 Safety Grooving Machine Operator: us [facility] External Provider CV VASC ULAR PROCEDURES Final Result [facility] [address] [place] [phone] * CTA Head Neck w/ and w/o Contrast (10/15/2024 6:06 AM EDT) Anatomical Region Laterality Modality Head, Neck Computed Tomogra phy 10/15/2024 6:06 AM EDT Narrative 10/15/2024 6:08 AM EDT [address] [address] [address] Scan Report Signed with Rosendo Patient: Rocío Hallman MR#: [id number] : 1960 Acct:[id number] Age/Sex: 63 / F ADM Date: 10/15/24 Loc: HO.ED Attending Dr: Ordering Physician: Cornelia Clark DO Date of Service: 10/15/24 Procedure(s): CT angio head neck Accession Number(s): [id number] cc: Cornelia Clark DO; [facility] Report Number: [id number]: Total DLP = 1340.00 mGy-cm ADDENDUM This [...] 10/15/24 0607 DD/ 06 TD/TT: 10/15/24 06 Safety Grooving Machine Operator: Procedure Note Donotuseinterpreter, Image - 10/15/[address] [address] [address] Scan Report Signed with Addenda Patient: Rocío HallmanMR#: [id number] : 2Acct:[id number] Age/Sex: 63 / FADM Date: 10/15/24 Loc: HO.ED Attending Dr: Ordering Physician: Cornelia Clark DO Date of Service: 10/15/24 Procedure(s): CT angio head neck Accession Number(s): [id number] cc: Cornelia Clark DO; [facility] Report Number: [id number]: Total DLP = 1340.00 mGy-cm ADDENDUM This [...] 10/15/24 06 DD/ 5 TD/TT: 10/15/24 06 Safety Grooving Machine Operator: [facility] External Provider IMG CT PROCEDURES Edited Result - Final * XR Chest 1 View (10/15/2024 4:29 AM EDT) Anatomical Region Laterality Modality Chest Radiographic Samantha ging 10/15/2024 4:29 AM EDT Narrative 10/15/2024 4:30 AM EDT [address] [address] XRay Report Signed Patient: Rocío Hallman MR#: [id number] : 1960 Acct:[id number] Age/Sex: 63 / F ADM Date: 10/15/24 Loc: HO.ED Attending Dr: Ordering Physician: Cornelia Clark DO Date of Service: 10/15/24 Procedure(s): XR chest 1V Accession Number(s): [id number] cc: Cornelia Clark DO; [facility] CLINICAL HISTORY: chest pain 1 view [...] in OV> 10/15/24429 DD/ 8 TD/TT: 10/15/24428 Safety Grooving Machine Operator: Procedure Note Donotuseinterpreter, Image - 10/15/2024 [place] [address] XRay Report Signed Patient: Rocío HallmanMR#: [id number] : 1960cct:[id number] Age/Sex: 63 / FADM Date: 10/15/24 Loc: .ED Attending Dr: Ordering Physician: Cornelia Clark DO Date of Service: 10/15/24 Procedure(s): XR chest 1V Accession Number(s): [id number] cc: Cornelia Clark DO; [facility] CLINICAL HISTORY: chest pain 1 view [...] in OV> 10/15/24429 DD/ 8 TD/TT: 10/15/24428 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 10/15/2024 2:3 7 AM EDT 10/15/2024 2:41 AM EDT Generic External Data Provider LAB BLOOD ORDERAB LES Final Result Performing Organization Address [facility]/ZIP Co de Phone Number [facility] [address] [place] [phone] * Magnesium (10/15/2024 2:37 AM EDT) [facility] Magnesium 2.0 1.6 - 2.6 mg/dL [facility] 10/15/2024 2:37 AM EDT 10/15/2024 2:41 AM EDT Generic External Data Provider LAB BLOOD ORDERAB LES Final Result Performing Organization Address City/[facility] Co de Phone Number [facility] [address] [place] [phone] * (ABNORMAL) Lipid Panel, Standard (07/24/2024 10:41 AM EDT) [facility] Triglycerides 157(H) <150 mg/dL [facility] Comment:Desirable Triglyceri de: less than 150 mg/dLBorderline High Triglyceride 150-199 mg/dLHigh Triglyceride: 200-499 mg/dLVery High Triglyceride: greater than or equal to 5OO mg/dL Cholesterol 234(H) <200 mg/dL [facility] Comment:Desirable Cholestero l: less than 200 mg/dLBorderline High Cholesterol: 200-239 mg/dLHigh Cholesterol: greater than 239 mg/dL LDL Cholesterol Calculated 159(H) <100 mg/dL [facility] Comment:Desirable LDL: less than 100 mg/dLNear Optimal/Above Optimal LDL: 110- 129 mg/dLBorderline High LDL: 130-159 mg/dLHigh LDL: 160-189 mg/dLVery High LDL: greater than or equal to 190 mg/dL HDL Cholesterol 44 >40 mg/dL [facility] Comment:Desirable HDL: great er than 40 mg/dL Note: This HDL assay may give artificially low results in patients with liver disease. 07/24/2024 10:4 1 AM EDT 07/24/2024 10:41 AM EDT us Radha Jamison DO LAB BLOOD ORDERABLES Final R esult Performing Organization Address [facility] de Phone Number [facility] [address] [place] [phone] * (ABNORMAL) Albumin, Random Urine W/Creatinine (05/15/2023 8:20 AM EDT) Creatinine, Urine 105.69 mg/dL [facility] Microalbumin Urine 1,418.0 mg/L [facility] Microalbum Creatinine Ratio Ur 1,341.6(H ) <30 ug/mg cr [facility] Comment:Albumin/Creatinine R atio Reference Ranges: Normal: < 30 ug/mg creatinine Microalbuminuria: 30 - 300 ug/mg creatinineClinical Albuminuria: > 300 ug/mg creatinine Urine (Urine, Random) 05/15/2023 8:20 AM EDT 05/15/2023 8:31 AM EDT Radha Jamison DO LAB URINE ORDERABLES Final R esult Performing Organization Address [facility] Co de Phone Number [facility] [address] [place] [phone] * Hepatitis C Antibody with Reflex to HCV RNA,PCR w/Reflex to Genotype, LiPA (08/08/2022 10:44 AM EDT) Hepatitis C Antibody NON-REACT ROMERO NON-REACT ROMERO [email or web address] Comment: HCV antibody was non-reactive. There is no laboratory evidence of HCV infection. In most cases, no further action is required. However, if recent HCV exposure is suspected, a test for HCV RNA (test code 06870) is suggested. For additional information, please refer to http://Spruik.CloudSway/faq/EDS324 (This link is being provided for informational/ educational purposes only.) 08/08/2022 10:4 4 AM EDT 08/08/2022 10:45 AM EDT [facility] - 08/09/2022 7:27 PM EDT FASTING:YES COLLECTION KIT GIVEN TO PATIENT. PATIENT ADVISED TO RETURN. FASTING: YES us Radha Jamison DO LAB BLOOD ORDERABLES Final R esult [facility] [address] [facility], [place] [address] [email or web address] [address] [place] [address] * HIV-1/2 Antigen and Antibodies, Fourth Generation, with Reflexes (08/08/2022 10:44 AM EDT) Pathologist [facility] HIV Antigen/Antibody, 4th Generation NON-REAC TIVE NON-REAC TIVE [facility] Comment: HIV-1 antigen and HIV-1/HIV-2 antibodies were [...] purpose. For additional information please refer to http://Spruik.[employer]/faq/QAS260 (This link is being provided for informational/ [...] BLOOD ORDERABLES Final R esult [facility] [address], [place] [address] [email or web address] [address] [place] [address] * Mammography Report 1 (10/06/2021 1:35 PM [...] kidney disease 12/31/2024 Weekly blood pressure task 01/03/2025 Weekly blood pressure task 01/03/2025 Weekly blood pressure task 01/03/2025 Patient has diabetic eye disease 01/03/2025 Patient has diabetic eye disease 01/03/2025 Patient has diabetic eye disease 01/03/2025 Patient has chronic kidney disease 01/03/2025 Patient has chronic kidney disease 01/03/2025 Patient has chronic kidney disease 01/03/2025 Insurance [facility] C3 Care Teams Relationship Advisor Relationship Specialty Start Date End Date Radha Jamison DO [address] [place] [address] PCP - General Family Medicine 01/26/12 Nelia Sullivan, Camron [address] [place] [address] Pharmacist Internal Medicine 08/31/23 Dalila Carson, JOANN [address] [place] [address] Registered Nurse Family Medicine 12/31/24 Ekta Reynolds 12/31/24 Laurel Monterroso Manufacturing DirectorTavern Operator 10/27/22 Saige Aguilar 09/26/23
--- OUTSIDE RECORDS SUMMARY | 2025-01-06 05:59 | XMS_ITS | Encounter Summary ---
Author Organization [employer] Address [address] [facility] 7t [place] [address] Care Team Providers Care Librarian Helper Name Role Phone Radha Jamison DO Primary Care Provider Nelia Sullivan PharmD Unavailable [phone] Letty Rinaldi Unavailable Dalila Carson RN Unavailable [phone] Ekta Reynolds Unavailable Reason for Visit * Reason Comments Med Refill Encounter Details Date Type Department Care Team (Late st Contact Info) Description 01/06/2024 Refill [facility] MEDICINE [address] [place], [place] [phone] Radha Jamison DO [address] [place], [place] [phone] Depression, unspecified depression type; Essential (primary) hypertension [...] 10:00 AM EST Medication Management [facility]INE [address] [place] [address] Nelia Sullivan, PharmD [address] [place] [address] 03/13/2025 9:30 AM EST Office Visit [facility] OPTOMETRY [address] [place] [address] Radha Taylor, OD [address] [place] [address] documented as of this encounter Goals Goal [...] documented as of this encounter Care Teams Librarian Helper Relationship Specialty Start Date End Date Radha Jamison DO [address] [place] [address] PCP - General Family Medicine 01/26/12 Nelia Sullivan PharmD [address] [place] [address] Pharmacist Internal Medicine 08/31/23 Letty Rinaldi 12/16/24 12/18/24 Dalila Carson, JOANN [address] [place] [address] Registered Nurse Family Medicine 12/31/24 Ekta Reynolds 12/31/24 Laurel Monterroso Manager BehaviorBus Assistant 10/27/22 Saige Aguilar 09/26/23 documented as of this encounter
--- OUTSIDE RECORDS SUMMARY | 2025-01-06 05:59 | XMS_ITS | Encounter Summary ---
Author Organization [employer] Address [address] [facility] 7t [place] [address] Care Team Providers Care Corporate Communications Associate Name Role Phone Radha Jamison DO Primary Care Provider Abdias Murillo PharmD Unavailable Unavail able Nelia Sullivan PharmD Unavailable Letty Rinaldi Unavailable Dalila Carson RN Unavailable [phone] Ekta Reynolds Unavailable Reason for Visit * Reason Comments Med Refill Encounter Details Date Type Department Care Team (Late st Contact Info) Description 04/14/2023 Refill [facility] MED[facility]INE [address] [place], [place] [phone] Radha Jamison DO [address] [place], [place] [phone] Type 2 diabetes mellitus with hyperglycemia, with long-term current use of insulin ([facility]) Social History Tobacco Use [...] Description 01/07/2025 10:00 AM EST Medication Management [facility] MEDICINE [address] [place] [address] Nelia Sullivan PharmD [address] [place] [address] 03/13/2025 9:30 AM EST Office Visit [facility] OPTOMETRY [address] [place] [address] TarkaRadha, OD [address] [place] [address] documented as of this encounter Goals Goal [...] as of this encounter Care Teams Corporate Communications Associate Relationship Specialty Start Date End Date Jurcsak, Radha, DO [address] [place], [place] [phone] PCP - General Family Medicine 01/26/12 Abdias Murillo, KeithD [address] [place] [address] Pharmacist Internal Medicine 03/21/22 08/30/23 Nelia Sullivan PharmD [address] [place] [address] Pharmacist Internal Medicine 08/31/23 Letty Rinaldi 12/16/24 12/18/24 Dalila Carson, JOANN [address] [place] [address] Registered Nurse Family Medicine 12/31/24 Ekta Reynolds 12/31/24 Laurel Monterroso Trim TechnicianElectrical Unit Rebuilder 10/27/22 Saige Aguilar 09/26/23 documented as of this encounter
--- OUTSIDE RECORDS SUMMARY | 2025-01-06 05:59 | XMS_ITS | Encounter Summary ---
Author Organization [employer] Address [address] [facility] 7t [place] [address] Care Team Providers Care Reverse Unit Operator Fisherman Name Role Phone Radha Jamison DO Primary Care Provider [phone] Nelia Sullivan PharmD Unavailable Letty Rinaldi Unavailable Dalila Carson RN Unavailable [phone] Ekta Reynolds Unavailable Reason for Visit * Reason Onset Date Comments Returning Call 01/17/2024 Hospital Follow-up 01/17/2024 Encounter Details Date Type Department Care Team (Late st Contact Info) Description 01/17/2024 Telephone [facility] MEDICINE [address] [place], [place] [phone] Radha Jamison DO [address] [place], [place] [phone] Returning Call ; Hospital Follow-up Social History [...] 10:00 AM EST Medication Management [facility] MED[facility]INE [address] [place] [address] Nelia Sullivan, PharmD [address] [place], [place] [phone] 03/13/2025 9:30 AM EST Office Visit [facility] OPTOMETRY [address] [place], [place] [phone] Radha Taylor, OD [address] [place] [address] documented as of this encounter Goals Goal [...] documented as of this encounter Care Teams Reverse Unit Operator Fisherman Relationship Specialty Start Date End Date Radha Jamison DO [address] [place] [address] PCP - General Family Medicine 01/26/12 Puia, Nelia, PharmD [address] [place], [place] [phone] Pharmacist Internal Medicine 08/31/23 Letty Rinaldi 12/16/24 12/18/24 Dalila Carson RN [address] [place] [address] Registered Nurse Family Medicine 12/31/24 Ekta Reynolds 12/31/24 Laurel Monterroso Insurance Application InvestigatorElevator Repairer Helper 10/27/22 Saige Aguilar 09/26/23 documented as of this encounter
--- OUTSIDE RECORDS SUMMARY | 2025-01-06 05:59 | XMS_ITS | Encounter Summary ---
Author Organization [employer] Address [address] [facility] 7t [place] [address] Care Team Providers Care Night Coordinator Name Role Phone Radha Jamison DO Primary Care Provider Abdias Murillo PharmD Unavailable Unavail able Nelia uSllivan PharmD Unavailable Letty Rinaldi Unavailable Dalila Carson RN Unavailable [phone] Ekta Reynolds Unavailable Encounter Details Date Type Department Care Team (Late st Contact Info) Description 06/15/2023 Orders Only [facility] MEDICINE [address] [place], [place] [phone] Radha Jamison DO [address] [place], [place] [phone] Stenosis of right carotid artery Social History [...] 10:00 AM EST Medication Management [facility] MED[facility]INE [address] [place] [address] Nelia Sullivan, PharmD [address] [place] [address] 03/13/2025 9:30 AM EST Office Visit [facility] OPTOMETRY [address] [place] [address] Tarka, Radha, OD [address] [place] [address] documented as of this encounter Goals Goal [...] documented as of this encounter Care Teams Night Coordinator Relationship Specialty Start Date End Date Radha Jamison DO [address] [place] [address] PCP - General Family Medicine 01/26/12 Abdias Murillo, PharmD [address] [place] [address] Pharmacist Internal Medicine 03/21/22 08/30/23 Nelia Sullivan PharmD [address] [place] [address] Pharmacist Internal Medicine 08/31/23 Letty Rinaldi 12/16/24 12/18/24 Dalila Carson, JOANN [address] [place] [address] Registered Nurse Family Medicine 12/31/24 Ekta Reynolds 12/31/24 Laurel Monterroso Animal StunnerRug Sizer 10/27/22 Saige Aguilar 09/26/23 documented as of this encounter
--- OUTSIDE RECORDS SUMMARY | 2025-01-06 05:59 | XMS_ITS ---
Author Organization [employer] Address [address] [facility] 7t [place] [address] Care Team Providers Care Business Broker Name Role Phone Radha Jamison DO Primary Care Provider Nelia Sullivan PharmD Unavailable [phone] Dalila Carson RN Unavailable [phone] Ekta Reynolds Unavailable CM Complex Status:Outreach In Progress (Enrolling) Start date:12/31/2024 Enrollment reason:Referred by provider Overview Home Health Utilization- Please coordinate with Dalila for connection of services with [facility] for longterm reduction. Case Team Name Relationship Phone Dalila Carson RN(Responsible Staff) Registered Nurse [phone] Continued Care and Services Coordination
--- OUTSIDE RECORDS SUMMARY | 2025-01-06 05:59 | XMS_ITS | Encounter Summary ---
Author Organization [employer] Address [address] [facility] 7t [place] [address] Care Team Providers Care Activity Specialist Name Role Phone Radha Jamison DO Primary Care Provider Nelia Sullivan PharmD Unavailable [phone] Letty Rinaldi Unavailable Dalila Carson RN Unavailable [phone] Ekta Reynolds Unavailable Reason for Visit * Reason Comments Med Refill Encounter Details Date Type Department Care Team (Late st Contact Info) Description 05/07/[address] [facility] MEDICINE [address] [place], [place] [phone] Radha Jamison DO [address] [place], [place] [phone] Social History Tobacco Use Types Packs/Day Years [...] AM EST Medication Management [facility] MEDICINE [address] [place] [address] Nelia Sullivan PharmD [address] [place] [address] 03/13/2025 9:30 AM EST Office Visit [facility] OPTOMETRY [address] [place] [address] Radha Taylor, OD [address] [place] [address] documented as of this encounter Goals Goal [...] as of this encounter Care Teams Activity Specialist Relationship Specialty Start Date End Date Radha Jamison DO [address] [place] [address] PCP - General Family Medicine 01/26/12 Nelia Sullivan, PharmD [address] [place] [address] Pharmacist Internal Medicine 08/31/23 Letty Rinaldi 12/16/24 12/18/24 Dalila Carson, JOANN [address] [place] [phone] Registered Nurse Family Medicine 12/31/24 Ekta Reynolds 12/31/24 Laurel Monterroso Account Development RepresentativeWrapper Opener 10/27/22 Saige Aguilar 09/26/23 documented as of this encounter
--- OUTSIDE RECORDS SUMMARY | 2025-01-06 05:59 | XMS_ITS | Encounter Summary ---
Author Organization [employer] Address [address] [facility] 7t [place] [address] Care Team Providers Care Crts Name Role Phone Radha Jamison DO Primary Care Provider Abdias Murillo PharmD Unavailable Unavail able Nelia Sullivan PharmD Unavailable [phone] Letty Rinaldi Unavailable Dalila Carson RN Unavailable [phone] Ekta Reynolds Unavailable Reason for Visit * Reason Comments Med Refill Encounter Details Date Type Department Care Team (Late st Contact Info) Description 08/11/2022 Refill [facility] MEDICINE [address] [place], [place] [phone] Radha Jamison DO [address] [place], [place] [phone] Anemia, unspecified type Social History Tobacco Use [...] for patient to contact Mary Reynolds at [phone]. documented in this encounter Plan of Treatment Upcoming Encounters Date Type Department Care Team (Late st Contact Info) Description 01/07/2025 10:00 AM EST Medication Management [facility] MEDICINE [address] [place] [address] Nelia Sullivan PharmD [address] [place] [address] 03/13/2025 9:30 AM EST Office Visit [facility] OPTOMETRY [address] [place] [address] Tarka, Radha, OD [address] [place] [address] documented as of this encounter Goals Goal [...] documented as of this encounter Care Teams Crts Relationship Specialty Start Date End Date Radha Jamison DO [address] [place] [address] PCP - General Family Medicine 01/26/12 Abdias Murillo, PharmD [address] [place] [phone] Pharmacist Internal Medicine 03/21/22 08/30/23 Nelia Sullivan, KeithD [address] [place] [address] Pharmacist Internal Medicine 08/31/23 Letty Rinaldi 12/16/24 12/18/24 Dalila Carson, RN [address] [place] [address] Registered Nurse Family Medicine 12/31/24 Ekta Reynolds 12/31/24 Laurel Monterroso Marketing Systems AnalystBoring Machine Operator 10/27/22 Saige Aguilar 09/26/23 documented as of this encounter
--- OUTSIDE RECORDS SUMMARY | 2025-01-06 05:59 | XMS_ITS | Encounter Summary ---
Author Organization [employer] Address [address] [facility] 7[address] [place] [address] Care Team Providers Care Crusher Supervisor Name Role Phone Radha Jamison DO Primary Care Provider Abdias Murillo PharmD Unavailable Unavail able Nelia Sullivan PharmD Unavailable [phone] Letty Rinaldi Unavailable Dalila Carson RN Unavailable [phone] Ekta Reynolds Unavailable Encounter Details Date Type Department Care Team (Late Contact Info) Description 02/03/2022 Orders Only [facility] [address] [place] [phone] Radha Jamison DO [address] [place] [address] [phone] Social History Tobacco Use Types Packs/Day Years [...] Description 01/07/2025 10:00 AM EST Medication Management [facility] [address] [place] [phone] PuiaNelia, PharmD [address] [place] [address] 03/13/2025 9:30 AM EST Office Visit [facility] [address] [facility] [place] [address] Radha Taylor, OD [address] [place] [address] documented as of this encounter Procedures Procedure [...] Sedimentation Rate 23(H) 0 - 20 MM/HR [facility] Comment:Patients with polycy themia and many hemoglobin abnormalitiesmay have depressed sed rates whereas patients with anemiamay have elevated sed rates. 04/24/2022 4:19 PM EDT 04/24/2022 4:27 PM EDT [facility] External Provider LAB BLO OD ORDERABLES Final Result Performing Organization Address [facility] Co de Phone Number [facility] [address] [place] [phone] * C-reactive Protein (04/24/2022 4:19 PM EDT) Pathologist [facility] C Reactive Protein 0.28 < or = 0.50 mg/dL [facility] 04/24/2022 4:19 PM EDT 04/24/2022 4:22 PM EDT [facility] External Provider LAB BLO OD ORDERABLES Final Result Performing Organization Address [facility] Phone Number [facility] [address] [place] [phone] * Magnesium (04/24/2022 4:19 PM EDT) Pathologist [facility] Magnesium 1.7 1.6 - 2.6 mg/dL [facility] 04/24/2022 4:19 PM EDT 04/24/2022 4:22 PM EDT [facility] External Provider LAB BLO OD ORDERABLES Final Result Performing Organization Address [facility] de Phone Number [facility] [address] [place] [phone] * (ABNORMAL) Basic Metabolic Panel (04/24/2022 4:19 PM EDT) Pathologist [facility] Sodium 135 135 - 145 mmol/L [facility] Potassium 4.7 3.3 - 5.1 mmol/L [facility] Chloride 100 96 - 108 mmol/L [facility] Carbon Dioxide 27 22 - 29 mmol/L [facility] Anion Gap 13 12 - 20 [facility] Urea Nitrogen (BUN) 20(H) 9 - 16 mg/dL [facility] Creatinine, Serum 1.01 0.5 - 1.4 mg/dL [facility] Creatinine Clr Calc Pharmacy 48.8 [facility] Comment:Provided height and weight: 152.4 cm,62.4 kg.eGFR (calculated from the MDRD study equation) and eCrCl(calculated from the Cockcroft-Gault equation) are based ondifferent parameters and may not yield comparable results.If eCrCl result is absurd, please check patient'sheight/weight. Estimated Glomerular Filt Rate 56 [facility] Comment:NOTE: For -Am erican individuals, multiply the result by 1.210.Chronic Kidney Disease: Estimated GFR < 60 mL/min/1.98m1Luervf Kidney Disease: Estimated GFR < 15 mL/min/1.73m2 Glucose 269(H) 60 - 115 mg/dL [facility] Calcium 9.2 8.4 - 10.2 mg/dL [facility] 04/24/2022 4:19 PM EDT 04/24/2022 4:22 PM EDT [facility] External Provider LAB BLO OD ORDERABLES Final Result [facility] [address] [place] [phone] * Hepatic Function Panel (04/24/2022 4:19 PM EDT) Bilirubin, Total 0.6 0.0 - 1.0 mg/dL [facility] Bilirubin, Direct <0.2 0.0 - 0.5 mg/dL [facility] Aspartate Amino Transferase 11 5 - 31 U/L [facility] Alanine Aminotransferase 6 0 - 31 U/L [facility] Total Protein 6.5 6.5 - 8.0 g/dL [facility] Albumin Level 4.0 3.5 - 5.0 g/dL [facility] Alkaline Phosphatase 80 39 - 117 U/L [facility] 04/24/2022 4:19 PM EDT 04/24/2022 4:22 PM EDT [facility] External Provider LAB BLO OD ORDERABLES Final Result [facility] [address] [place] [address] [phone] * (ABNORMAL) CBC auto differential (04/24/2022 4:19 PM EDT) White Blood Count 7.3 4.8 - 10.8 X10*3/uL [facility] Red Blood Count 4.14(L) 4.20 - 5.50 X10*6/uL [facility] Hemoglobin 12.1 12.0 - 16.0 g/dl [facility] Hematocrit 36.6(L) 37.0 - 47.0 % [facility] Mean Corpuscular Volume 88.4 80.0 - 98.0 fL [facility] Mean Corpuscular Hemoglobin 29.2 27.0 - 33.0 pg [facility] Mean Corpuscular HGB Conc 33.1 31.0 - 35.0 g/dl [facility] Red Cell Distribution Width 13.4 11.0 - 16.0 % [facility] Platelet Count 333 160 - 400 X10*3/uL [facility] Mean Platelet Volume 8.9(L) 9.4 - 12.3 fL [facility] Neutrophils Percent Auto 62.4 45 - 73 % [facility] Imm Gran Pct Auto 0.3 0.0 - 0.4 % [facility] Lymphocytes Percent Auto 28.8 20 - 40 % [facility] Monocytes Percent Auto 5.3 2 - 11 % [facility] Eosinophils Percent Auto 2.7 0 - 4 % [facility] Basophils Percent Auto 0.5 0 - 2 % [facility] NRBC Pct Auto 0.0 0.0 - 0.2 /100WBC [facility] Neutrophils Absolute Auto 4.6 2.0 - 8.3 x10*3/uL [facility] Imm Gran Abs Auto 0.02 0.00 - 0.03 X10*3/uL [facility] Lymphocytes Absolute Auto 2.1 1.2 - 4.9 X10*3/uL [facility] Monocytes Absolute Auto 0.4 0.1 - 1.2 X10*3/uL [facility] Eosinophils Absolute Auto 0.2 0.0 - 0.4 X10*3/uL [facility] Basophils Absolute Auto 0.0 0.0 - 0.2 X10*3/uL [facility] NRBC Abs Auto 0.000 0.0 - 0.012 X10*3/uL [facility] 04/24/2022 4:19 PM EDT 04/24/2022 4:22 PM EDT [facility] External Provider LAB BLO OD ORDERABLES Final Result [facility] [address] [place] [phone] * (ABNORMAL) Urinalysis, Complete, with Reflex to Culture (04/17/2022 10:53 AM EST) Color Urine Yellow [facility] Appearance Urine Clear [facility] PH 7.5 5.0 - 9.0 [facility] Glucose Urine UA 100(A) Negative mg/dL [facility] Urine Blood Negative Negative [facility] Specific [place] - Urine >=1.030(H) 1.005 - 1.025 [facility] Urine Protein 100 (2+)(A) Neg-Trace mg/dL [facility] Urine Ketones Negative Negative mg/dL [facility] Nitrite Urine Negative Negative [facility] Leukocyte Esterase Urine Negative Negative [facility] RBC Urine 3-5(A) 0 - 2 /HPF [facility] Urine WBC 0-5 0 - 5 /HPF [facility] Urine Squamous Epithelial Cell 3-5 0 - 2 /HPF [facility] Urine Bacteria None Seen None Seen [facility] Hyaline Casts, Urine 0-2 0 - 2 /LPF [facility] 04/17/2022 10:5 3 AM EST 04/17/2022 10:56 AM EST Narrative [facility] - 04/17/2022 11:06 AM EST Urine, Clean Catch [facility] External Provider LAB URI NE ORDERABLES Final Result Performing Organization Address City/[facility] Co de Phone Number [facility] [address] [place] [address] [phone] * (ABNORMAL) Sed Rate by Modified [place] (04/17/2022 8:21 AM EST) Erythrocyte Sedimentation Rate 23(H) 0 - 20 MM/HR [facility] Comment:Patients with polycy themia and many hemoglobin abnormalitiesmay have depressed sed rates whereas patients with anemiamay have elevated sed rates. 04/17/2022 8:21 AM EST 04/17/2022 8:41 AM EST [facility] External Provider LAB BLO OD ORDERABLES Final Result Performing Organization Address [facility] Co de Phone Number [facility] [address] [place] [address] [phone] * Lipase (04/17/2022 8:21 AM EST) Lipase 10 8 - 78 U/L [facility] 04/17/2022 8:21 AM EST 04/17/2022 8:24 AM EST [facility] External Provider LAB BLO OD ORDERABLES Final Result Performing Organization Address [facility] Co de Phone Number [facility] [address] [place] [address] [phone] * C-reactive Protein (04/17/2022 8:21 AM EST) Pathologist [facility] C Reactive Protein 0.23 < or = 0.50 mg/dL [facility] 04/17/2022 8:21 AM EST 04/17/2022 8:24 AM EST [facility] External Provider LAB BLO OD ORDERABLES Final Result Performing Organization Address [facility] Phone Number [facility] [address] [place] [phone] * Magnesium (04/17/2022 8:21 AM EST) [facility] Magnesium 1.6 1.6 - 2.6 mg/dL [facility] 04/17/2022 8:21 AM EST 04/17/2022 8:24 AM EST [facility] External Provider LAB BLO OD ORDERABLES Final Result Performing Organization Address [facility] Phone Number [facility] [address] [place] [phone] * (ABNORMAL) Hepatic Function Panel (04/17/2022 8:21 AM EST) Pathologist [facility] Bilirubin, Total 0.7 0.0 - 1.0 mg/dL [facility] Bilirubin, Direct <0.2 0.0 - 0.5 mg/dL [facility] Aspartate Amino Transferase 10 5 - 31 U/L [facility] Alanine Aminotransferase 7 0 - 31 U/L [facility] Total Protein 6.2(L) 6.5 - 8.0 g/dL [facility] Albumin Level 3.8 3.5 - 5.0 g/dL [facility] Alkaline Phosphatase 71 39 - 117 U/L [facility] 04/17/2022 8:21 AM EST 04/17/2022 8:24 AM EST [facility] External Provider LAB BLO OD ORDERABLES Final Result Performing Organization Address [facility]/ZIP Co de Phone Number [facility] [address] [place] [phone] [phone] * (ABNORMAL) Basic Metabolic Panel (04/17/2022 8:21 AM EST) Sodium 138 135 - 145 mmol/L [facility] Potassium 4.9 3.3 - 5.1 mmol/L [facility] Chloride 104 96 - 108 mmol/L [facility] Carbon Dioxide 26 22 - 29 mmol/L [facility] Anion Gap 13 12 - 20 [facility] Urea Nitrogen (BUN) 17(H) 9 - 16 mg/dL [facility] Creatinine, Serum 0.79 0.5 - 1.4 mg/dL [facility] Creatinine Clr Calc Pharmacy 66.3 [facility] Comment:Provided height and weight: 157.48 cm,63.503 kg.eGFR (calculated from the MDRD study equation) and eCrCl(calculated from the Cockcroft-Gault equation) are based ondifferent parameters and may not yield comparable results.If eCrCl result is absurd, please check patient'sheight/weight. Estimated Glomerular Filt Rate >60 [facility] Comment:NOTE: For -Am erican individuals, multiply the result by 1.210.Chronic Kidney Disease: Estimated GFR < 60 mL/min/[id number] Kidney Disease: Estimated GFR < 15 mL/min/1.73m2 Glucose 272(H) 60 - 115 mg/dL [facility] Calcium 9.1 8.4 - 10.2 mg/dL [facility] 04/17/2022 8:21 AM EST 04/17/2022 8:24 AM EST us [facility] External Provider LAB BLO OD ORDERABLES Final Result Performing Organization Address [facility]/ZIP Co de Phone Number [facility] [address] [place] [phone] * (ABNORMAL) CBC auto differential (04/17/2022 8:21 AM EST) White Blood Count 5.7 4.8 - 10.8 X10*3/uL [facility] Red Blood Count 4.01(L) 4.20 - 5.50 X10*6/uL [facility] Hemoglobin 11.7(L) 12.0 - 16.0 g/dl [facility] Hematocrit 35.9(L) 37.0 - 47.0 % [facility] Mean Corpuscular Volume 89.5 80.0 - 98.0 fL [facility] Mean Corpuscular Hemoglobin 29.2 27.0 - 33.0 pg [facility] Mean Corpuscular HGB Conc 32.6 31.0 - 35.0 g/dl [facility] Red Cell Distribution Width 13.4 11.0 - 16.0 % [facility] Platelet Count 309 160 - 400 X10*3/uL [facility] Mean Platelet Volume 9.3(L) 9.4 - 12.3 fL [facility] Neutrophils Percent Auto 60.9 45 - 73 % [facility] Imm Gran Pct Auto 0.4 0.0 - 0.4 % [facility] Lymphocytes Percent Auto 27.3 20 - 40 % [facility] Monocytes Percent Auto 6.3 2 - 11 % [facility] Eosinophils Percent Auto 4.4(H) 0 - 4 % [facility] Basophils Percent Auto 0.7 0 - 2 % [facility] NRBC Pct Auto 0.0 0.0 - 0.2 /100WBC [facility] Neutrophils Absolute Auto 3.5 2.0 - 8.3 x10*3/uL [facility] Imm Gran Abs Auto 0.02 0.00 - 0.03 X10*3/uL [facility] Lymphocytes Absolute Auto 1.6 1.2 - 4.9 X10*3/uL [facility] Monocytes Absolute Auto 0.4 0.1 - 1.2 X10*3/uL [facility] Eosinophils Absolute Auto 0.3 0.0 - 0.4 X10*3/uL [facility] Basophils Absolute Auto 0.0 0.0 - 0.2 X10*3/uL [facility] NRBC Abs Auto 0.000 0.0 - 0.012 X10*3/uL [facility] 04/17/2022 8:21 AM EST 04/17/2022 8:24 AM EST [facility] External Provider LAB BLO OD ORDERABLES Final Result Performing Organization Address [facility] Co de Phone Number [facility] [address] [place] [phone] * Creatinine, Serum (04/13/2022 7:33 AM EST) Creatinine, Serum 0.75 0.5 - 1.4 mg/dL [facility] Creatinine Clr Calc Pharmacy 70.3 [facility] Comment:Provided height and weight: 157.48 cm,64.41 kg.eGFR (calculated from the MDRD study equation) and eCrCl(calculated from the Cockcroft-Gault equation) are based ondifferent parameters and may not yield comparable results.If eCrCl result is absurd, please check patient'sheight/weight. Estimated Glomerular Filt Rate >60 [facility] Comment:NOTE: For -Am erican individuals, multiply the result by 1.210.Chronic Kidney Disease: Estimated GFR < 60 mL/min/[id number] Kidney Disease: Estimated GFR < 15 mL/min/1.73m2 04/13/2022 7:33 AM EST 04/13/2022 7:38 AM EST [facility] External Provider LAB BLO OD ORDERABLES Final Result Performing Organization Address [facility] Co de Phone Number [facility] [address] [place] [phone] * BUN (Blood Urea Nitrogen) (04/13/2022 7:33 AM EST) Urea Nitrogen (BUN) 12 9 - 16 mg/dL [facility] 04/13/2022 7:33 AM EST 04/13/2022 7:38 AM EST [facility] External Provider LAB BLO OD ORDERABLES Final Result [facility] [address] [place] [phone] [phone] * (ABNORMAL) CBC auto differential (04/13/2022 7:33 AM EST) White Blood Count 6.6 4.8 - 10.8 X10*3/uL [facility] Red Blood Count 4.12(L) 4.20 - 5.50 X10*6/uL [facility] Hemoglobin 12.1 12.0 - 16.0 g/dl [facility] Hematocrit 36.6(L) 37.0 - 47.0 % [facility] Mean Corpuscular Volume 88.8 80.0 - 98.0 fL [facility] Mean Corpuscular Hemoglobin 29.4 27.0 - 33.0 pg [facility] Mean Corpuscular HGB Conc 33.1 31.0 - 35.0 g/dl [facility] Red Cell Distribution Width 13.6 11.0 - 16.0 % [facility] Platelet Count 291 160 - 400 X10*3/uL [facility] Mean Platelet Volume 9.0(L) 9.4 - 12.3 fL [facility] Neutrophils Percent Auto 55.5 45 - 73 % [facility] Imm Gran Pct Auto 0.2 0.0 - 0.4 % [facility] Lymphocytes Percent Auto 33.7 20 - 40 % [facility] Monocytes Percent Auto 6.5 2 - 11 % [facility] Eosinophils Percent Auto 3.6 0 - 4 % [facility] Basophils Percent Auto 0.5 0 - 2 % [facility] NRBC Pct Auto 0.0 0.0 - 0.2 /100WBC [facility] Neutrophils Absolute Auto 3.7 2.0 - 8.3 x10*3/uL [facility] Imm Gran Abs Auto 0.01 0.00 - 0.03 X10*3/uL [facility] Lymphocytes Absolute Auto 2.2 1.2 - 4.9 X10*3/uL [facility] Monocytes Absolute Auto 0.4 0.1 - 1.2 X10*3/uL [facility] Eosinophils Absolute Auto 0.2 0.0 - 0.4 X10*3/uL [facility] Basophils Absolute Auto 0.0 0.0 - 0.2 X10*3/uL [facility] NRBC Abs Auto 0.000 0.0 - 0.012 X10*3/uL [facility] 04/13/2022 7:33 AM EST 04/13/2022 7:38 AM EST [facility] External Provider LAB BLO OD ORDERABLES Final Result Performing Organization Address City/[facility]/ZIP Co de Phone Number [facility] [address] [place] [phone] * (ABNORMAL) GLUCOSE, WHOLE BLOOD (04/13/2022 7:27 AM EST) [facility] Glucose, Whole Blood 197(H) 60 - 115 mg/dL [facility] Comment:METER #: [id number] 04/13/2022 7:27 AM EST 04/13/2022 7:31 AM EST [facility] External Provider LAB BLO OD ORDERABLES Final Result Performing Organization Address [facility] Co de Phone Number [facility] [address] [place] [address] [phone] * HIGH SENSITIVITY TROPONIN I (04/03/2022 8:36 PM EST) [facility] TROPONIN I HIGH SENSITIVITY 6.0 <3.5 - 17.0 ng/L [facility] Comment:The Ibrahim high sens itivity Troponin-I results should beused in conjunction with other diagnostic information suchas ECG, clinical observations and information, and patientsymptoms to aid in the diagnosis of [place]. 04/03/2022 8:36 PM EST 04/03/2022 8:38 PM EST [facility] External Provider LAB BLO OD ORDERABLES Final Result Performing Organization Address [facility]/ZIP Co de Phone Number [facility] [address] [place] [address] [phone] * Lipase (04/03/2022 8:36 PM EST) Lipase 10 8 - 78 U/L [facility] 04/03/2022 8:36 PM EST 04/03/2022 8:38 PM EST [facility] External Provider LAB BLO OD ORDERABLES Final Result Performing Organization Address [facility] Co de Phone Number [facility] [address] [place] [address] [phone] * (ABNORMAL) Basic Metabolic Panel (04/03/2022 8:36 PM EST) Sodium 138 135 - 145 mmol/L [facility] Potassium 3.9 3.3 - 5.1 mmol/L [facility] Chloride 104 96 - 108 mmol/L [facility] Carbon Dioxide 27 22 - 29 mmol/L [facility] Anion Gap 11(L) 12 - 20 [facility] Urea Nitrogen (BUN) 11 9 - 16 mg/dL [facility] Creatinine, Serum 0.74 0.5 - 1.4 mg/dL [facility] Creatinine Clr Calc Pharmacy 70.7 [facility] Comment:Provided height and weight: 157.48 cm,63.503 kg.eGFR (calculated from the MDRD study equation) and eCrCl(calculated from the Cockcroft-Gault equation) are based ondifferent parameters and may not yield comparable results.If eCrCl result is absurd, please check patient'sheight/weight. Estimated Glomerular Filt Rate >60 [facility] Comment:NOTE: For -Am erican individuals, multiply the result by 1.210.Chronic Kidney Disease: Estimated GFR < 60 mL/min/1.89t3Rvctpe Kidney Disease: Estimated GFR < 15 mL/min/1.73m2 Glucose 246(H) 60 - 115 mg/dL [facility] Calcium 9.0 8.4 - 10.2 mg/dL [facility] 04/03/2022 8:36 PM EST 04/03/2022 8:38 PM EST [facility] External Provider LAB BLO OD ORDERABLES Final Result Performing Organization Address [facility] de Phone Number [facility] [address] [place] [address] [phone] * (ABNORMAL) Hepatic Function Panel (04/03/2022 8:36 PM EST) Bilirubin, Total 0.6 0.0 - 1.0 mg/dL [facility] Bilirubin, Direct 0.2 0.0 - 0.5 mg/dL [facility] Aspartate Amino Transferase 10 5 - 31 U/L [facility] Alanine Aminotransferase 8 0 - 31 U/L [facility] Total Protein 5.8(L) 6.5 - 8.0 g/dL [facility] Albumin Level 3.7 3.5 - 5.0 g/dL [facility] Alkaline Phosphatase 76 39 - 117 U/L [facility] 04/03/2022 8:36 PM EST 04/03/2022 8:38 PM EST [facility] External Provider LAB BLO OD ORDERABLES Final Result Performing Organization Address [facility] Co de Phone Number [facility] [address] [place] [address] [phone] * (ABNORMAL) CBC auto differential (04/03/2022 8:36 PM EST) White Blood Count 6.0 4.8 - 10.8 X10*3/uL [facility] Red Blood Count 4.10(L) 4.20 - 5.50 X10*6/uL [facility] Hemoglobin 12.0 12.0 - 16.0 g/dl [facility] Hematocrit 35.6(L) 37.0 - 47.0 % [facility] Mean Corpuscular Volume 86.8 80.0 - 98.0 fL [facility] Mean Corpuscular Hemoglobin 29.3 27.0 - 33.0 pg [facility] Mean Corpuscular HGB Conc 33.7 31.0 - 35.0 g/dl [facility] Red Cell Distribution Width 13.3 11.0 - 16.0 % [facility] Platelet Count 276 160 - 400 X10*3/uL [facility] Mean Platelet Volume 9.2(L) 9.4 - 12.3 fL [facility] Neutrophils Percent Auto 58.2 45 - 73 % [facility] Imm Gran Pct Auto 0.2 0.0 - 0.4 % [facility] Lymphocytes Percent Auto 32.9 20 - 40 % [facility] Monocytes Percent Auto 6.0 2 - 11 % [facility] Eosinophils Percent Auto 2.2 0 - 4 % [facility] Basophils Percent Auto 0.5 0 - 2 % [facility] NRBC Pct Auto 0.0 0.0 - 0.2 /100WBC [facility] Neutrophils Absolute Auto 3.5 2.0 - 8.3 x10*3/uL [facility] Imm Gran Abs Auto 0.01 0.00 - 0.03 X10*3/uL [facility] Lymphocytes Absolute Auto 2.0 1.2 - 4.9 X10*3/uL [facility] Monocytes Absolute Auto 0.4 0.1 - 1.2 X10*3/uL [facility] Eosinophils Absolute Auto 0.1 0.0 - 0.4 X10*3/uL [facility] Basophils Absolute Auto 0.0 0.0 - 0.2 X10*3/uL [facility] NRBC Abs Auto 0.000 0.0 - 0.012 X10*3/uL [facility] 04/03/2022 8:36 PM EST 04/03/2022 8:38 PM EST [facility] External Provider LAB BLO OD ORDERABLES Final Result Performing Organization Address [facility] de Phone Number [facility] [address] [place] [address] [phone] * (ABNORMAL) GLUCOSE, WHOLE BLOOD (04/03/2022 7:56 PM EST) Pathologist [facility] [place] Glucose, Whole Blood 227(H) 60 - 115 mg/dL [facility] Comment:METER #: [id number] 6 04/03/2022 7:56 PM EST 04/03/2022 8:01 PM EST [facility] External Provider LAB BLO OD ORDERABLES Final Result Performing Organization Address [facility] Phone Number [facility] [address] [place] [address] [phone] * (ABNORMAL) B Type Natriuretic Peptide (BNP) (03/09/2022 5:39 PM EST) Pathologist [facility] [place] B Type Natriuretic Peptide 125(H) <100 pg/mL [facility] Comment:For those patients w ho are being treated with Natrecor(nesiritide, recombinant BNP), BNP testing should beperformed at least two hours post treatment in order toensure that only endogenous levels of BNP are detected. 03/09/2022 5:39 PM EST 03/09/2022 6:48 PM EST [facility] External Provider LAB BLO OD ORDERABLES Final Result Performing Organization Address [facility] de Phone Number [facility] [address] [place] [address] [phone] * SARS-CoV-2 RNA, Influenza A/B, and RSV RNA, Ql NAAT (03/09/2022 5:39 PM EST) Pathologist [facility] [place] Influenza A PCR NEGATIVE Negative [facility] Influenza B PCR NEGATIVE Negative [facility] Resp Syncy Virus RNA Qual PCR NEGATIVE Negative [facility] SARS COV2 PCR NEGATIVE Negative [facility] SARS/Flu/RSV Note See Note [facility] Comment:All test results mus [...] use by authorized laboratories.Testing performed on the [employer] GeneXpert utilizingreal-time RT-PCR.All SARS CoV2 and positive influenza A/B results arereported to [facility]. 03/09/2022 5:39 PM EST 03/09/2022 5:43 PM EST [facility] Exter nal Provider LAB MICROBIOLOGY - GENERAL ORDERABLES Final Result [facility] [address] [place] [address] [phone] * HIGH SENSITIVITY TROPONIN I (03/09/2022 5:39 PM EST) Pathologist [facility] TROPONIN I HIGH SENSITIVITY 5.6 <3.5 - 17.0 ng/L [facility] Comment:The Ibrahim high sens itivity Troponin-I results should beused in conjunction with other diagnostic information suchas ECG, clinical observations and information, and patientsymptoms to aid in the diagnosis of [place]. 03/09/2022 5:39 PM EST 03/09/2022 5:43 PM EST [facility] External Provider LAB BLO OD ORDERABLES Final Result [facility] [address] [place] [phone] * (ABNORMAL) Comprehensive Metabolic Panel (03/09/2022 5:39 PM EST) Sodium 139 135 - 145 mmol/L [facility] Potassium 3.9 3.3 - 5.1 mmol/L [facility] Chloride 103 96 - 108 mmol/L [facility] Carbon Dioxide 27 22 - 29 mmol/L [facility] Anion Gap 13 12 - 20 [facility] Urea Nitrogen (BUN) 18(H) 9 - 16 mg/dL [facility] Creatinine, Serum 0.95 0.5 - 1.4 mg/dL [facility] Creatinine Clr Calc Pharmacy 53.0 [facility] Comment:Provided height and weight: 152.4 cm,65.2 kg.eGFR (calculated from the MDRD study equation) and eCrCl(calculated from the Cockcroft-Gault equation) are based ondifferent parameters and may not yield comparable results.If eCrCl result is absurd, please check patient'sheight/weight. Estimated Glomerular Filt Rate >60 [facility] Comment:NOTE: For -Am erican individuals, multiply the result by 1.210.Chronic Kidney Disease: Estimated GFR < 60 mL/min/1.58w1Vwvaoc Kidney Disease: Estimated GFR < 15 mL/min/1.73m2 Glucose 326(H) 60 - 115 mg/dL [facility] Calcium 9.1 8.4 - 10.2 mg/dL [facility] Bilirubin, Total 0.3 0.0 - 1.0 mg/dL [facility] Aspartate Amino Transferase 8 5 - 31 U/L [facility] Alanine Aminotransferase <6 0 - 31 U/L [facility] Total Protein 5.9(L) 6.5 - 8.0 g/dL [facility] Albumin Level 3.6 3.5 - 5.0 g/dL [facility] Alkaline Phosphatase 81 39 - 117 U/L [facility] 03/09/2022 5:39 PM EST 03/09/2022 5:43 PM EST [facility] External Provider LAB BLO OD ORDERABLES Final Result [facility] [address] [place] [phone] [phone] * (ABNORMAL) CBC auto differential (03/09/2022 5:39 PM EST) White Blood Count 7.3 4.8 - 10.8 X10*3/uL [facility] Red Blood Count 4.03(L) 4.20 - 5.50 X10*6/uL [facility] Hemoglobin 11.7(L) 12.0 - 16.0 g/dl [facility] Hematocrit 35.1(L) 37.0 - 47.0 % [facility] Mean Corpuscular Volume 87.1 80.0 - 98.0 fL [facility] Mean Corpuscular Hemoglobin 29.0 27.0 - 33.0 pg [facility] Mean Corpuscular HGB Conc 33.3 31.0 - 35.0 g/dl [facility] Red Cell Distribution Width 13.4 11.0 - 16.0 % [facility] Platelet Count 296 160 - 400 X10*3/uL [facility] Mean Platelet Volume 9.3(L) 9.4 - 12.3 fL [facility] Neutrophils Percent Auto 63.9 45 - 73 % [facility] Imm Gran Pct Auto 0.1 0.0 - 0.4 % [facility] Lymphocytes Percent Auto 27.1 20 - 40 % [facility] Monocytes Percent Auto 5.9 2 - 11 % [facility] Eosinophils Percent Auto 2.6 0 - 4 % [facility] Basophils Percent Auto 0.4 0 - 2 % [facility] NRBC Pct Auto 0.0 0.0 - 0.2 /100WBC [facility] Neutrophils Absolute Auto 4.6 2.0 - 8.3 x10*3/uL [facility] Imm Gran Abs Auto 0.01 0.00 - 0.03 X10*3/uL [facility] Lymphocytes Absolute Auto 2.0 1.2 - 4.9 X10*3/uL [facility] Monocytes Absolute Auto 0.4 0.1 - 1.2 X10*3/uL [facility] Eosinophils Absolute Auto 0.2 0.0 - 0.4 X10*3/uL [facility] Basophils Absolute Auto 0.0 0.0 - 0.2 X10*3/uL [facility] NRBC Abs Auto 0.000 0.0 - 0.012 X10*3/uL [facility] 03/09/2022 5:39 PM EST 03/09/2022 5:43 PM EST [facility] External Provider LAB BLO OD ORDERABLES Final Result [facility] [address] [place] [address] [phone] * Prothrombin Time-INR (03/09/2022 5:39 PM EST) Prothrombin Time 10.9 10.0 - 13.1 SEC [facility] INTERNATIONAL NORM RATIO 1.0 0.9 - 1.1 [facility] Comment:INTERNATIONAL NORMAL IZED RATIO (INR) [...] 5:39 PM EST 03/09/2022 5:43 PM EST [facility] External Provider LAB BLO OD ORDERABLES Final Result Performing Organization Address [facility] Co de Phone Number [facility] [address] [place] [address] [phone] * GLUCOSE, WHOLE BLOOD (03/01/2022 12:41 AM EST) Glucose, Whole Blood 79 60 - 115 mg/dL [facility] Comment:METER #: [id number] 1 03/01/2022 12:4 1 AM EST 03/01/2022 12:46 AM EST [facility] External Provider LAB BLO OD ORDERABLES Final Result Performing Organization Address [facility] Phone Number [facility] [address] [place] [address] [phone] * (ABNORMAL) GLUCOSE, WHOLE BLOOD (02/28/2022 10:39 PM EST) Glucose, Whole Blood 273(H) 60 - 115 mg/dL [facility] Comment:METER #: [id number] 1 02/28/2022 10:3 9 PM EST 02/28/2022 10:45 PM EST [facility] External Provider LAB BLO OD ORDERABLES Final Result Performing Organization Address [facility] Co de Phone Number [facility] [address] [place] [address] [phone] * (ABNORMAL) Comprehensive Metabolic Panel (02/28/2022 9:42 PM EST) Sodium 138 135 - 145 mmol/L [facility] Potassium 4.3 3.3 - 5.1 mmol/L [facility] Comment:Slight Hemolysis Chloride 106 96 - 108 mmol/L [facility] Carbon Dioxide 24 22 - 29 mmol/L [facility] Anion Gap 12 12 - 20 [facility] Urea Nitrogen (BUN) 14 9 - 16 mg/dL [facility] Creatinine, Serum 0.87 0.5 - 1.4 mg/dL [facility] Creatinine Clr Calc Pharmacy 57.2 [facility] Comment:Provided height and weight: 152.4 cm,63.503 kg.eGFR (calculated from the MDRD study equation) and eCrCl(calculated from the Cockcroft-Gault equation) are based ondifferent parameters and may not yield comparable results.If eCrCl result is absurd, please check patient'sheight/weight. Estimated Glomerular Filt Rate >60 [facility] Comment:NOTE: For -Am erican individuals, multiply the result by 1.210.Chronic Kidney Disease: Estimated GFR < 60 mL/min/1.99i7Kvojov Kidney Disease: Estimated GFR < 15 mL/min/1.73m2 Glucose 378(HH) 60 - 115 mg/dL [facility] Comment:Critical value for t est(s): GLUR Results called to and readback by: EULA Person calling: BIANKA Date: 02/28/22Time: 2220 Calcium 9.3 8.4 - 10.2 mg/dL [facility] Bilirubin, Total 0.3 0.0 - 1.0 mg/dL [facility] Aspartate Amino Transferase 12 5 - 31 U/L [facility] Comment:Slight Hemolysis Alanine Aminotransferase 7 0 - 31 U/L [facility] Total Protein 6.7 6.5 - 8.0 g/dL [facility] Albumin Level 3.9 3.5 - 5.0 g/dL [facility] Alkaline Phosphatase 83 39 - 117 U/L [facility] 02/28/2022 9:42 PM EST 02/28/2022 9:48 PM EST us [facility] External Provider LAB BLO OD ORDERABLES Final Result [facility] [address] [place] [phone] * HIGH SENSITIVITY TROPONIN I (02/28/2022 9:42 PM EST) TROPONIN I HIGH SENSITIVITY 7.1 <3.5 - 17.0 ng/L [facility] Comment:The Ibrahim high sens itivity Troponin-I results should beused in conjunction with other diagnostic information suchas ECG, clinical observations and information, and patientsymptoms to aid in the diagnosis of [place]. 02/28/2022 9:42 PM EST 02/28/2022 9:48 PM EST [facility] External Provider LAB BLO OD ORDERABLES Final Result [facility] [address] [place] [address] [phone] * (ABNORMAL) CBC (02/28/2022 9:42 PM EST) [facility] White Blood Count 7.0 4.8 - 10.8 X10*3/uL [facility] Red Blood Count 4.22 4.20 - 5.50 X10*6/uL [facility] Hemoglobin 12.1 12.0 - 16.0 g/dl [facility] Hematocrit 36.4(L) 37.0 - 47.0 % [facility] Mean Corpuscular Volume 86.3 80.0 - 98.0 fL [facility] Mean Corpuscular Hemoglobin 28.7 27.0 - 33.0 pg [facility] Mean Corpuscular HGB Conc 33.2 31.0 - 35.0 g/dl [facility] Red Cell Distribution Width 13.3 11.0 - 16.0 % [facility] Platelet Count 311 160 - 400 X10*3/uL [facility] Mean Platelet Volume 9.7 9.4 - 12.3 fL [facility] NRBC Pct Auto 0.0 0.0 - 0.2 /100WBC [facility] NRBC Abs Auto 0.000 0.0 - 0.012 X10*3/uL [facility] 02/28/2022 9:42 PM EST 02/28/2022 9:48 PM EST [facility] External Provider LAB BLO OD ORDERABLES Final Result Performing Organization Address City/[facility]/ZIP Co de Phone Number [facility] [address] [place] [address] [phone] * (ABNORMAL) GLUCOSE, WHOLE BLOOD (02/28/2022 9:38 PM EST) Glucose, Whole Blood 379(HH) 60 - 115 mg/dL [facility] Comment:METER #: [id number] 1 02/28/2022 9:38 PM EST 02/28/2022 9:48 PM EST [facility] External Provider LAB BLO OD ORDERABLES Final Result Performing Organization Address [facility] Co de Phone Number [facility] [address] [place] [address] [phone] * (ABNORMAL) Urinalysis, Complete, with Reflex to Culture (02/22/2022 3:20 PM EST) Color Urine Yellow [facility] Appearance Urine Cloudy [facility] PH 6.5 5.0 - 9.0 [facility] Glucose Urine UA >=1000(A) Negative mg/dL [facility] Urine Blood Negative Negative [facility] Specific [place] - Urine 1.020 1.005 - 1.025 [facility] Urine Protein 100 (2+)(A) Neg-Trace mg/dL [facility] Urine Ketones Negative Negative mg/dL [facility] Nitrite Urine Negative Negative [facility] Leukocyte Esterase Urine Small (1+)(A) Negative [facility] RBC Urine 3-5(A) 0 - 2 /HPF [facility] Urine WBC 0-5 0 - 5 /HPF [facility] Urine Squamous Epithelial Cell 0-2 0 - 2 /HPF [facility] Urine Bacteria None Seen None Seen [facility] Hyaline Casts, Urine 3-5 0 - 2 /LPF [facility] 02/22/2022 3:20 PM EST 02/22/2022 3:27 PM EST Narrative [facility] - 02/22/2022 4:14 PM EST [id number], Clean Catch [facility] External Provider LAB URI NE ORDERABLES Final Result Performing Organization Address [facility]/ZIP Co de Phone Number [facility] [address] [place] [address] [phone] * SARS-CoV-2 RNA, Influenza A/B, and RSV RNA, Ql NAAT (02/22/2022 3:14 PM EST) Influenza A PCR NEGATIVE Negative [facility] Influenza B PCR NEGATIVE Negative [facility] Resp Syncy Virus RNA Qual PCR NEGATIVE Negative [facility] SARS COV2 PCR NEGATIVE Negative [facility] SARS/Flu/RSV Note See Note [facility] Comment:All test results mus [...] use by authorized laboratories.Testing performed on the [employer] GeneXpert utilizingreal-time RT-PCR.All SARS CoV2 and positive influenza A/B results arereported to [facility]. 02/22/2022 3:14 PM EST 02/22/2022 3:19 PM EST [facility] Exter nal Provider LAB MICROBIOLOGY - GENERAL ORDERABLES Final Result Performing Organization Address [facility]/ZIP Co de Phone Number [facility] [address] [place] [address] [phone] * HIGH SENSITIVITY TROPONIN I (02/22/2022 3:14 PM EST) [facility] TROPONIN I HIGH SENSITIVITY 8.8 <3.5 - 17.0 ng/L [facility] Comment:The Ibrahim high sens itivity Troponin-I results should beused in conjunction with other diagnostic information suchas ECG, clinical observations and information, and patientsymptoms to aid in the diagnosis of [place]. 02/22/2022 3:14 PM EST 02/22/2022 3:19 PM EST [facility] External Provider LAB BLO OD ORDERABLES Final Result Performing Organization Address [facility]/ZIP Co de Phone Number [facility] [address] [place] [address] [phone] * Magnesium (02/22/2022 3:14 PM EST) [facility] Magnesium 1.6 1.6 - 2.6 mg/dL [facility] 02/22/2022 3:14 PM EST 02/22/2022 3:19 PM EST [facility] External Provider LAB BLO OD ORDERABLES Final Result Performing Organization Address [facility] Co de Phone Number [facility] [address] [place] [address] [phone] * (ABNORMAL) Basic Metabolic Panel (02/22/2022 3:14 PM EST) [facility] Sodium 136 135 - 145 mmol/L [facility] Potassium 4.4 3.3 - 5.1 mmol/L [facility] Chloride 103 96 - 108 mmol/L [facility] Carbon Dioxide 27 22 - 29 mmol/L [facility] Anion Gap 10(L) 12 - 20 [facility] Urea Nitrogen (BUN) 20(H) 9 - 16 mg/dL [facility] Creatinine, Serum 0.99 0.5 - 1.4 mg/dL [facility] Creatinine Clr Calc Pharmacy 50.6 [facility] Comment:Provided height and weight: 152.4 cm,64.5 kg.eGFR (calculated from the MDRD study equation) and eCrCl(calculated from the Cockcroft-Gault equation) are based ondifferent parameters and may not yield comparable results.If eCrCl result is absurd, please check patient'sheight/weight. Estimated Glomerular Filt Rate 57 [facility] Comment:NOTE: For -Am erican individuals, multiply the result by 1.210.Chronic Kidney Disease: Estimated GFR < 60 mL/min/1.67k6Ugsoel Kidney Disease: Estimated GFR < 15 mL/min/1.73m2 Glucose 343(H) 60 - 115 mg/dL [facility] Calcium 9.3 8.4 - 10.2 mg/dL [facility] 02/22/2022 3:14 PM EST 02/22/2022 3:19 PM EST [facility] External Provider LAB BLO OD ORDERABLES Final Result [facility] [address] [place] [phone] * (ABNORMAL) Hepatic Function Panel (02/22/2022 3:14 PM EST) Bilirubin, Total 0.4 0.0 - 1.0 mg/dL [facility] Bilirubin, Direct <0.2 0.0 - 0.5 mg/dL [facility] Aspartate Amino Transferase 10 5 - 31 U/L [facility] Alanine Aminotransferase 6 0 - 31 U/L [facility] Total Protein 6.1(L) 6.5 - 8.0 g/dL [facility] Albumin Level 3.7 3.5 - 5.0 g/dL [facility] Alkaline Phosphatase 82 39 - 117 U/L [facility] 02/22/2022 3:14 PM EST 02/22/2022 3:19 PM EST [facility] External Provider LAB BLO OD ORDERABLES Final Result [facility] [address] [place], [place] [phone] * (ABNORMAL) CBC auto differential (02/22/2022 3:14 PM EST) White Blood Count 5.6 4.8 - 10.8 X10*3/uL [facility] Red Blood Count 3.99(L) 4.20 - 5.50 X10*6/uL [facility] Hemoglobin 11.8(L) 12.0 - 16.0 g/dl [facility] Hematocrit 35.1(L) 37.0 - 47.0 % [facility] Mean Corpuscular Volume 88.0 80.0 - 98.0 fL [facility] Mean Corpuscular Hemoglobin 29.6 27.0 - 33.0 pg [facility] Mean Corpuscular HGB Conc 33.6 31.0 - 35.0 g/dl [facility] Red Cell Distribution Width 13.2 11.0 - 16.0 % [facility] Platelet Count 265 160 - 400 X10*3/uL [facility] Mean Platelet Volume 10.0 9.4 - 12.3 fL [facility] Neutrophils Percent Auto 49.1 45 - 73 % [facility] Imm Gran Pct Auto 0.4 0.0 - 0.4 % [facility] Lymphocytes Percent Auto 40.1(H) 20 - 40 % [facility] Monocytes Percent Auto 6.1 2 - 11 % [facility] Eosinophils Percent Auto 3.4 0 - 4 % [facility] Basophils Percent Auto 0.9 0 - 2 % [facility] NRBC Pct Auto 0.0 0.0 - 0.2 /100WBC [facility] Neutrophils Absolute Auto 2.7 2.0 - 8.3 x10*3/uL [facility] Imm Gran Abs Auto 0.02 0.00 - 0.03 X10*3/uL [facility] Lymphocytes Absolute Auto 2.2 1.2 - 4.9 X10*3/uL [facility] Monocytes Absolute Auto 0.3 0.1 - 1.2 X10*3/uL [facility] Eosinophils Absolute Auto 0.2 0.0 - 0.4 X10*3/uL [facility] Basophils Absolute Auto 0.1 0.0 - 0.2 X10*3/uL [facility] NRBC Abs Auto 0.000 0.0 - 0.012 X10*3/uL [facility] 02/22/2022 3:14 PM EST 02/22/2022 3:19 PM EST [facility] External Provider LAB BLO OD ORDERABLES Final Result Performing Organization Address [facility] Co de Phone Number [facility] [address] [place] [phone] * Culture, Urine, Routine (02/22/2022 12:00 AM EST) 02/22/2022 02/22/2022 5:2 3 PM EST Comment:UACC Narrative [facility] - 02/24/2022 11:31 AM EST Urine Culture Report Result Urine Culture 10,000 to 50,000 cfu/ml Urine Culture Mixed bacterial benton characteristic of Urine Culture urogenital contamination. Specimen Source: Urine clean catch [facility] Exter nal Provider LAB MICROBIOLOGY - GENERAL ORDERABLES Final Result Performing Organization Address [facility] de Phone Number [facility] [address] [place] [phone] documented in this encounter Visit Diagnoses Not on filedocumented in this encounter Care Teams Crusher Supervisor Relationship Specialty Start Date End Date Radha Jamison DO [address] [place] [address] PCP - General Family Medicine 01/26/12 Abdias Murillo, Camron [address] [place] [address] Pharmacist Internal Medicine 03/21/22 08/30/23 Nelia Sullivan, KeithD [address] [place] [address] Pharmacist Internal Medicine 08/31/23 Letty Rinaldi 12/16/24 12/18/24 Dalila Carson, RN [address] [place] [address] Registered Nurse Family Medicine 12/31/24 Ekta Reynolds 12/31/24 Laurel Monterroso Oracle Technical DeveloperBlueprint Clerk 10/27/22 Saige Aguilar 09/26/23 documented as of this encounter
--- OUTSIDE RECORDS SUMMARY | 2025-01-06 05:59 | XMS_ITS | Encounter Summary ---
Author Organization [employer] Address [address] [facility] 7t [place] [address] Care Team Providers Care Tool Grinder Operator Name Role Phone Radha Jamison DO Primary Care Provider [phone] Nelia Sullivan PharmD Unavailable Letty Rinaldi Unavailable Dalila Carson RN Unavailable [phone] Ekta Reynolds Unavailable Reason for Visit * Reason Onset Date Comments Med Refill 05/07/2024 Encounter Details Date Type Department Care Team (Late st Contact Info) Description 05/07/2024 Telephone [facility] MED[facility]INE [address] [place], [place] [phone] Radha Jamison DO [address] [place], [place] [phone] Med Refill Social History Tobacco Use Types [...] immediate release tablet To be sent to: [facility] documented in this encounter Plan of Treatment Upcoming Encounters Date Type Department Care Team (Late st Contact Info) Description 01/07/2025 10:00 AM EST Medication Management [facility] [address] [place] [address] Nelia Sullivan, PharmD [address] [place] [address] 03/13/2025 9:30 AM EST Office Visit [facility] OPTOMETRY [address] [place], [place] [phone] Anamerritt Radha, OD [address] [place] [address] documented as of this encounter Goals Goal [...] documented as of this encounter Care Teams Tool Grinder Operator Relationship Specialty Start Date End Date Radha Jamison DO [address] [place] [address] PCP - General Family Medicine 01/26/12 Puia, Nelia, PharmD [address] [place], [place] [phone] Pharmacist Internal Medicine 08/31/23 Letty Rinaldi 12/16/24 12/18/24 Dalila Carson RN [address] [place] [address] Registered Nurse Family Medicine 12/31/24 Ekta Reynolds 12/31/24 Laurel Monterroso Regional PlannerRug Sample Beveler 10/27/22 Saige Aguilar 09/26/23 documented as of this encounter
--- OUTSIDE RECORDS SUMMARY | 2025-01-06 05:59 | XMS_ITS | Encounter Summary ---
Author Organization [employer] Address [address] [facility] 7t [place] [address] Care Team Providers Care Cooking Chef Name Role Phone Lisa Jamisonfer Primary Care Provider [phone] Abdias Murillo PharmD Unavailable Unavail able Nelia Sullivan PharmD Unavailable [phone] Letty Rinaldi Unavailable Dalila Carson RN Unavailable [phone] Ekta Reynolds Unavailable Reason for Visit * Reason Onset Date Comments Dental Exam 08/24/2023 Encounter Details Date Type Department Care Team (Late st Contact Info) Description 08/24/2023 Telephone [facility]AL 230 [place] [address] Libby Siddiqui DDS [address] [place], [place] [phone] Dental Exam Social History Tobacco Use Types [...] Description 01/07/2025 10:00 AM EST Medication Management [facility] MEDICINE [address] [place], [place] [phone] Nelia Sullivan, PharmD [address] [place] [address] 03/13/2025 9:30 AM EST Office Visit [facility] OPTOMETRY [address] [place], [place] [phone] Radha Taylor, OD 267 [place] [address] documented as of this encounter Goals Goal [...] documented as of this encounter Care Teams Cooking Chef Relationship Specialty Start Date End Date Radha Jamison DO [address] [place] [address] PCP - General Family Medicine 01/26/12 Abdias Murillo, PharmD [address] [place] [address] Pharmacist Internal Medicine 03/21/22 08/30/23 Nelia Sullivan, KeithD [address] [place] [address] Pharmacist Internal Medicine 08/31/23 Letty Rinaldi 12/16/24 12/18/24 Dalila Carson, RN [address] [place] [address] Registered Nurse Family Medicine 12/31/24 Ekta Reynolds 12/31/24 Laurel Monterroso Director RiskMathematical Technician 10/27/22 Saige Aguilar 09/26/23 documented as of this encounter
--- OUTSIDE RECORDS SUMMARY | 2025-01-06 05:59 | XMS_ITS | Encounter Summary ---
Author Organization [employer] Address 75 [facility] 7t [place] [address] Care Team Providers Care Form Builder Helper Name Role Phone Radha Jamison DO Primary Care Provider Nelia Sullivan PharmD Unavailable Letty Rinaldi Unavailable Dalila Carson RN Unavailable [phone] Ekta Reynolds Unavailable Reason for Visit * Reason Comments Med Refill Encounter Details Date Type Department Care Team (Late st Contact Info) Description 05/17/2024 Refill [facility] [address] [place], [place] [phone] Radha Jamison DO [address] [place], [place] [phone] Chronic bilateral low back pain, unspecified whether [...] 10:00 AM EST Medication Management [facility] [address] [place] [address] Nelia Sullivan, PharmD [address] [place] [address] 03/13/2025 9:30 AM EST Office Visit [facility] OPTOMETRY [address] [place] [address] Radha Taylor, OD [address] [place] [address] documented as of this encounter Goals Goal [...] documented as of this encounter Care Teams Form Builder Helper Relationship Specialty Start Date End Date Radha Jamison DO [address] [place] [address] PCP - General Family Medicine 01/26/12 Nelia Sullivan PharmD [address] [place] [address] Pharmacist Internal Medicine 08/31/23 Letty Rinaldi 12/16/24 12/18/24 Dalila Carson, JOANN [address] [place] [address] Registered Nurse Family Medicine 12/31/24 Ekta Reynolds 12/31/24 Laurel Monterroso Automatic Machines SupervisorOffice Worker 10/27/22 Saige Aguilar 09/26/23 documented as of this encounter
--- OUTSIDE RECORDS SUMMARY | 2025-01-06 05:59 | XMS_ITS | Encounter Summary ---
Author Organization [employer] Address 75 [facility] 7t [place] [address] Care Team Providers Care Copying Machine Mechanic Name Role Phone Radha Jamison DO Primary Care Provider Abdias Murillo PharmD Unavailable Unavail able Nelia Sullivan PharmD Unavailable [phone] Letty Rinaldi Unavailable Dalila Carson RN Unavailable [phone] Ekta Reynolds Unavailable Reason for Visit * Reason Comments Med Refill Encounter Details Date Type Department Care Team (Late st Contact Info) Description 11/08/2022 Refill [facility] [address] [place], [place] [phone] Radha Jamison DO [address] [place], [place] [phone] Social History Tobacco Use Types Packs/Day Years [...] Description 01/07/2025 10:00 AM EST Medication Management [facility] MED[facility] [address] [place] [address] Nelia Sullivan PharmD [address] [place] [address] 03/13/2025 9:30 AM EST Office Visit [facility] OPTOMETRY [address] [place] [address] Radha Taylor, OD [address] [place] [address] documented as of this encounter Goals Goal [...] documented as of this encounter Care Teams Copying Machine Mechanic Relationship Specialty Start Date End Date Radha Jamison DO [address] [place] [address] PCP - General Family Medicine 01/26/12 Abdias Murillo, PharmD [address] [place] [address] Pharmacist Internal Medicine 03/21/22 08/30/23 Nelia Sullivan PharmD [address] [place] [address], [place] [address] Pharmacist Internal Medicine 08/31/23 Letty Rinaldi 12/16/24 12/18/24 Dalila Carson, RN [address] [place] [address] Registered Nurse Family Medicine 12/31/24 Ekta Reynolds 12/31/24 Laurel Monterroso Tube CutterWreath Maker 10/27/22 Saige Aguilar 09/26/23 documented as of this encounter
--- OUTSIDE RECORDS SUMMARY | 2025-01-06 05:59 | XMS_ITS | Encounter Summary ---
Author Organization [employer] Address 75 [facility] 7t [place] [address] Care Team Providers Care Seismograph Recorder Name Role Phone Radha Jamison DO Primary Care Provider Abdias Murillo PharmD Unavailable Unavail able Nelia Sullivan PharmD Unavailable Letty Rinaldi Unavailable Dalila Carson RN Unavailable [phone] Ekta Reynolds Unavailable Encounter Details Date Type Department Care Team (Late st Contact Info) Description 10/10/2022 Telephone [facility] MEDICINE 230 [place], [place] [phone] Radha Jamison DO [address] [place], [place] [phone] Social History Tobacco Use Types Packs/Day Years [...] AM EST Medication Management [facility] MEDICINE 230 [place] [address] Nelia Sullivan PharmD 230 [place] [address] 03/13/2025 9:30 AM EST Office Visit [facility] OPTOMETRY [address] [place], [place] [phone] Radha Taylor, OD 267 [place] [address] documented as of this encounter Goals Goal [...] documented as of this encounter Care Teams Seismograph Recorder Relationship Specialty Start Date End Date Radha Jamison DO [address] [place] [address] PCP - General Family Medicine 01/26/12 Abdias Murillo PharmD [address] [place] [address] Pharmacist Internal Medicine 03/21/22 08/30/23 Nelia Sullivan PharmD [address] [place] [address] Pharmacist Internal Medicine 08/31/23 Letty Rinaldi 12/16/24 12/18/24 Dalila Carson, JOANN [address] [place] [address] Registered Nurse Family Medicine 12/31/24 Ekta Reynolds 12/31/24 Laurel Monterroso Youth Corrections OfficerConcrete Finishing Machine Operator 10/27/22 Saige Aguilar 09/26/23 documented as of this encounter
--- OUTSIDE RECORDS SUMMARY | 2025-01-06 05:59 | XMS_ITS | Encounter Summary ---
Author Organization [employer] Address 75 [facility] 7t [place] [address] Care Team Providers Care Tour Agent Name Role Phone Radha Jamison DO Primary Care Provider Abdias Murillo PharmD Unavailable Unavail able Nelia Sullivan PharmD Unavailable Letty Rinaldi Unavailable Dalila Carson RN Unavailable [phone] Ekta Reynolds Unavailable Reason for Visit * Reason Onset Date Comments Med Refill 10/18/2022 Encounter Details Date Type Department Care Team (Late st Contact Info) Description 10/18/2022 Telephone [facility] MEDICINE 230 [place], [place] [phone] Radha Jamison DO [address] [place], [place] [phone] Med Refill Social History Tobacco Use Types [...] PCP needed re:controlled medication. 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 Any questions, contact pt at [phone] (Thai) * Telephone Encounter - Acacia Chakraborty RN [...] Medication Management [facility] MEDICINE [address] [place] [address] Nelia Sullivan PharmD [address] [place] [address] 03/13/2025 9:30 AM EST Office Visit [facility] OPTOMETRY 267 [place], [place] [phone] Radha Taylor, OD 267 [place] [address] documented as of this encounter Goals Goal [...] documented as of this encounter Care Teams Tour Agent Relationship Specialty Start Date End Date Radha Jamison DO [address] [place] [address] PCP - General Family Medicine 01/26/12 Abdias Murillo PharmD [address] [place] [address] Pharmacist Internal Medicine 03/21/22 08/30/23 Nelia Sullivan PharmD [address] [place] [address] Pharmacist Internal Medicine 08/31/23 Letty Rinaldi 12/16/24 12/18/24 Dalila Carson, RN [address] [place] [address] Registered Nurse Family Medicine 12/31/24 Ekta Reynolds 12/31/24 Laurel Monterroso Chemical Engineering ProfessorOutplacement Consultant 10/27/22 Saige Aguilar 09/26/23 documented as of this encounter
--- OUTSIDE RECORDS SUMMARY | 2025-01-06 05:59 | XMS_ITS | Encounter Summary ---
Author Organization [employer] Address 75 [facility] 7t [place] [address] Care Team Providers Care Taxicab Coordinator Name Role Phone Radha Jamison DO Primary Care Provider Abdias Murillo PharmD Unavailable Unavail able Nelia Sullivan PharmD Unavailable Letty Rinaldi Unavailable Dalila Carson RN Unavailable [phone] Ekta Reynolds Unavailable Reason for Visit * Reason Comments Med Refill Encounter Details Date Type Department Care Team (Late st Contact Info) Description 06/06/2023 Refill [facility] [address] [place], [place] [phone] Radha Jamison DO [address] [place] [address] Chronic bilateral low back pain, unspecified whether [...] Description 01/07/2025 10:00 AM EST Medication Management [facility] MEDICINE 230 [place] [address] Nelia Sullivan PharmD [address] [place] [address] 03/13/2025 9:30 AM EST Office Visit [facility] OPTOMETRY [address] [place] [address] Tarka, Radha, OD [address] [place] [address] documented as of this encounter Goals Goal [...] documented as of this encounter Care Teams Taxicab Coordinator Relationship Specialty Start Date End Date Radha Jamison DO [address] [place] [address] PCP - General Family Medicine 01/26/12 Abdias Murillo, PharmD [address] [place] [address] Pharmacist Internal Medicine 03/21/22 08/30/23 Nelia Sullivan, KeithD [address] [place] [address] Pharmacist Internal Medicine 08/31/23 Letty Rinaldi 12/16/24 12/18/24 Dalila Carson, JOANN [address] [place] [address] Registered Nurse Family Medicine 12/31/24 Ekta Reynolds 12/31/24 Laurel Monterroso Telecom AssistantTugboat Pilot 10/27/22 Saige Aguilar 09/26/23 documented as of this encounter
--- OUTSIDE RECORDS SUMMARY | 2025-01-06 06:00 | XMS_ITS | Encounter Summary ---
Author Organization [employer] Address [address] [facility] 7t [place] [address] Care Team Providers Care Assistant Professor Of Chemistry Name Role Phone Radha Jamison DO Primary Care Provider Abdias Murillo PharmD Unavailable Unavail able Nelia Sullivan PharmD Unavailable Letty Rinaldi Unavailable Dalila Carson RN Unavailable [phone] Ekta Reynolds Unavailable Reason for Visit * Reason Comments Med Refill Encounter Details Date Type Department Care Team (Late st Contact Info) Description 12/21/2022 Refill [facility] MEDICINE 230 [place], [place] [phone] Radha Jamison DO [address] [place], [place] [phone] Chronic bilateral low back pain, unspecified whether [...] Description 01/07/2025 10:00 AM EST Medication Management [facility] MEDICINE 230 [place] [address] Nelia Sullivan PharmD [address] [place] [address] 03/13/2025 9:30 AM EST Office Visit [facility] OPTOMETRY [address] [place] [address] Tarka, Radha, OD [address] [place] [address] documented as of this encounter Goals Goal [...] as of this encounter Care Teams Assistant Professor Of Chemistry Relationship Specialty Start Date End Date Radha Jamison DO [address] [place] [address] PCP - General Family Medicine 01/26/12 Abdias Murillo, PharmD [address] [place] [address] Pharmacist Internal Medicine 03/21/22 08/30/23 Nelia Sullivan PharmD [address] [place] [address] Pharmacist Internal Medicine 08/31/23 Letty Rinaldi 12/16/24 12/18/24 Dalila Carson RN [address] [place] [address] Registered Nurse Family Medicine 12/31/24 Ekta Reynolds 12/31/24 aLurel Monterroso Auditing ClerkKitchen And Counter Worker 10/27/22 Saige Aguilar 09/26/23 documented as of this encounter
--- OUTSIDE RECORDS SUMMARY | 2025-01-06 06:00 | XMS_ITS | Encounter Summary ---
Author Organization [employer] Address 75 [facility] 7t [place] [address] Care Team Providers Care Student Development Specialist Name Role Phone Radha Jamison DO Primary Care Provider Nelia Sullivan PharmD Unavailable Letty Rinaldi Unavailable Dalila Carson RN Unavailable [phone] Ekta Reynolds Unavailable Reason for Visit * Reason Comments Med Refill Encounter Details Date Type Department Care Team (Late st Contact Info) Description 10/30/2023 Refill [facility] MEDICINE [address] [place], [place] [phone] Radha Jamison DO [address] [place], [place] [phone] Chronic bilateral low back pain, unspecified whether [...] 10:00 AM EST Medication Management [facility] MEDICINE [address] [place] [address] Nelia Sullivan, PharmD [address] [place] [address] 03/13/2025 9:30 AM EST Office Visit [facility] OPTOMETRY [address] [place] [address] Radha Taylor, OD [address] [place] [address] documented as of this encounter Goals Goal [...] as of this encounter Care Teams Student Development Specialist Relationship Specialty Start Date End Date Radha Jamison DO [address] [place] [address] PCP - General Family Medicine 01/26/12 Nelia Sullivan, PharmD [address] [place] [address] Pharmacist Internal Medicine 08/31/23 Letty Rinaldi 12/16/24 12/18/24 Dalila Carson, JOANN [address] [place] [address] Registered Nurse Family Medicine 12/31/24 Ekta Reynolds 12/31/24 Laurel Monterroso Care AttendantAir Moving Technician 10/27/22 Saige Aguilar 09/26/23 documented as of this encounter
--- OUTSIDE RECORDS SUMMARY | 2025-01-06 06:00 | XMS_ITS | Encounter Summary ---
Author Organization [employer] Address [address] [facility] 7t [place] [address] Care Team Providers Care Hoop Maker Name Role Phone Radha Jamison DO Primary Care Provider [phone] Nelia Sullivan PharmD Unavailable [phone] Dalila Carson RN Unavailable [phone] Ekta Reynolds Unavailable Reason for Visit * Reason Onset Date Comments Appointment Request 01/03/2025 Encounter Details Date Type Department Care Team ([facility] st Contact Info) Description 01/03/2025 Telephone [facility] MEDICINE 230 [place], [place] [phone] Radha Jamison DO 230 [place], [place] [phone] Appointment Request Social History Tobacco Use Types [...] Telephone Encounter - Acacia Chakraborty RN - 01/03/2025 12:58 PM EST Pt called 12/30/24: Tc from pt requesting to schedule apt so she is able to get Oxycodone prescribed Contact pt at [phone] (vincentian) This message was forwarded to PCP on the same day, d/t pt was tapered off oxycodone February 2024 through April 2024 d/t not compliant with MOTIVATIONAL SPEAKER Agreement. Patient was seen by PCP 12/27/24, note is pending. Messaged PCP today, awaiting response regarding above. * Telephone Encounter - Josuekarin Reynolds - 01/03/2025 12:43 PM EST Tc from pt requesting a call back to schedule an appointment. Please contact pt at [phone]. (Kyrgyz Speaker) documented in this encounter Plan of Treatment Upcoming Encounters Date Type Department Care Team (Late st Contact Info) Description 01/07/2025 10:00 AM EST Medication Management [facility] MEDICINE 230 [place] [address] Nelia Sullivan, PharmD 230 [place] [address] 03/13/2025 9:30 AM EST Office Visit [facility] OPTOMETRY [address] [place] [address] Radha Taylor, OD 267 [place] [address] documented as of this encounter Goals Goal [...] Component 10.1(12/07/19 12:48 PM EDT) No Abdias Murillo, PharmD Record [...] has chronic kidney disease No Josue Reynolds documented as of this encounter Visit [...] 01/03/2025 Patient has chronic kidney disease 01/03/2025 Assessment Noted Time PHQ-9 Depression Total Score: 16 025 2:10 PM EDT documented as of this encounter Care Teams Hoop Maker Relationship Specialty Start Date End Date Radha Jamison DO [address] [place] [address] PCP - General Family Medicine 01/26/12 Nelia Sullivan PharmD 230 [place] [address] Pharmacist Internal Medicine 08/31/23 Dalila Carson, JOANN [address] [place] [address] Registered Nurse Family Medicine 12/31/24 Ekta Reynolds 12/31/24 Laurel Monterroso Dental MechanicSport Intern 10/27/22 Saige Aguilar 09/26/23 documented as of this encounter
--- OUTSIDE RECORDS SUMMARY | 2025-01-06 06:00 | XMS_ITS | Encounter Summary ---
Author Organization [employer] Address 75 [facility] 7t [place] [address] Care Team Providers Care Healthcare Facility Administrator Name Role Phone Radha Jamison DO Primary Care Provider Abdias Murillo PharmD Unavailable Unavail able Nelia Sullivan PharmD Unavailable [phone] Letty Rinaldi Unavailable Dalila Carson RN Unavailable [phone] Ekta Reynolds Unavailable Reason for Visit * Reason Comments Med Refill Encounter Details Date Type Department Care Team (Late st Contact Info) Description 03/14/2023 Refill [facility] MEDICINE 230 [place], [place] [phone] Radha Jamison DO [address] [place], [place] [phone] Chronic bilateral low back pain, unspecified whether [...] Description 01/07/2025 10:00 AM EST Medication Management [facility] MEDICINE [address] [place] [address] Nelia Sullivan PharmD [address] [place] [address] 03/13/2025 9:30 AM EST Office Visit [facility] OPTOMETRY [address] [place] [address] Tarka, Radha, OD 267 [place] [address] documented as of this encounter Goals Goal [...] documented as of this encounter Care Teams Healthcare Facility Administrator Relationship Specialty Start Date End Date Radha Jamison DO [address] [place] [address] PCP - General Family Medicine 01/26/12 Abdias Murillo, PharmD [address] [place] [address] Pharmacist Internal Medicine 03/21/22 08/30/23 Nelia Sullivan PharmD [address] [place] [address] Pharmacist Internal Medicine 08/31/23 Letty Rinaldi 12/16/24 12/18/24 Dalila Carson RN [address] [place] [address] Registered Nurse Family Medicine 12/31/24 Ekta Reynolds 12/31/24 Laurel Monterroso Medical Records ReceptionistPaving Supervisor 10/27/22 Saige Aguilar 09/26/23 documented as of this encounter
--- OUTSIDE RECORDS SUMMARY | 2025-01-06 06:00 | XMS_ITS | Encounter Summary ---
Author Organization [employer] Address 75 [facility] 7t [place] [address] Care Team Providers Care Emergency Crew Supervisor Name Role Phone Radha Jamison DO Primary Care Provider Abdias Murillo PharmD Unavailable Unavail able Nelia Sullivan PharmD Unavailable [phone] Letty Rinaldi Unavailable Dalila Carson RN Unavailable [phone] Ekta Reynolds Unavailable Reason for Visit * Reason Comments Med Refill Encounter Details Date Type Department Care Team (Late st Contact Info) Description 12/22/2022 Refill [facility] MEDICINE 230 [place], [place] [phone] Radha Jamison DO 230 [place] [address] Chronic bilateral low back pain, unspecified whether [...] Description 01/07/2025 10:00 AM EST Medication Management [facility] MEDICINE [address] [place] [address] Nelia Sullivan PharmD 230 [place] [address] 03/13/2025 9:30 AM EST Office Visit [facility] OPTOMETRY 267 [place] [address] Tarka, Radha, OD 267 [place] [address] documented as of this encounter Goals Goal [...] documented as of this encounter Care Teams Emergency Crew Supervisor Relationship Specialty Start Date End Date Radha Jamison DO 230 [place] [address] PCP - General Family Medicine 01/26/12 Abdias Murillo, PharmD 230 [place] [address] Pharmacist Internal Medicine 03/21/22 08/30/23 Nelia Sullivan PharmD 230 [place] [address] Pharmacist Internal Medicine 08/31/23 Letty Rinaldi 12/16/24 12/18/24 Dalila Carson RN [address] [place] [address] Registered Nurse Family Medicine 12/31/24 Ekta Reynolds 12/31/24 Laurel Monterroso Outside Sales ConsultantRetail Service Specialist 10/27/22 Saige Aguilar 09/26/23 documented as of this encounter
--- OUTSIDE RECORDS SUMMARY | 2025-01-06 06:00 | XMS_ITS | Encounter Summary ---
Author Organization [employer] Address [address] [facility] 7t [place] [address] Care Team Providers Care Insurance Verification Clerk Name Role Phone ShaheenRadha Primary Care Provider [phone] Abdias Murillo PharmD Unavailable Unavail able Nelia Sullivan PharmD Unavailable [phone] Letty Rinaldi Unavailable Dalila Carson RN Unavailable [phone] Ekta Reynolds Unavailable Reason for Visit * Reason Onset Date Comments Med Refill Appointment 05/15/2022 Re: her appt for today as [id number] @ 10:15 am. & No active phone # at this time. Encounter Details Date Type Department Care Team (Late st Contact Info) Description 05/15/2022 Refill [facility] MEDICINE 230 [place], [place] [phone] Abdias Murillo, PharmD Type 2 diabetes mellitus with other specified complication, with long-term current use of insulin ([facility]) Social History Tobacco Use [...] pt regarding her appt for today as [id number] @ 10:15 am. And her phone # is not active at this time. documented in this encounter Plan of Treatment Upcoming Encounters Date Type Department Care Team (Late st Contact Info) Description 01/07/2025 10:00 AM EST Medication Management [facility] MEDICINE [address] [place] [address] Nelia Sullivan PharmD [address] [place] [address] 03/13/2025 9:30 AM EST Office Visit [facility] OPTOMETRY [address] [place] [address] Radha Taylor, OD 267 [place] [address] documented as of this encounter Goals Goal [...] documented as of this encounter Care Teams Insurance Verification Clerk Relationship Specialty Start Date End Date Radha Jamison DO [address] [place] [address] PCP - General Family Medicine 01/26/12 Abdias Murillo, KeithD [address] [place] [address] Pharmacist Internal Medicine 03/21/22 08/30/23 Nelia Sullivan, KeithD [address] [place] [address] Pharmacist Internal Medicine 08/31/23 Letty Rinaldi 12/16/24 12/18/24 Dalila Carson, JOANN [address] [place] [address] Registered Nurse Family Medicine 12/31/24 Ekta Reynolds 12/31/24 Laurel Monterroso Customer Solutions SupervisorMetallurgical Specialist 10/27/22 Saige Aguilar 09/26/23 documented as of this encounter
--- OUTSIDE RECORDS SUMMARY | 2025-01-06 06:00 | XMS_ITS | Encounter Summary ---
Author Organization [email or web address] Address [address] [facility] 7t [place] [address] Care Team Providers Care Poultry Offal Worker Name Role Phone Radha Jamison DO Primary Care Provider Abdias Murillo PharmD Unavailable Unavail able Nelia Sullivan PharmD Unavailable [phone] Letty Rinaldi Unavailable Dalila Carson RN Unavailable [phone] Ekta Reynolds Unavailable Reason for Visit * Reason Comments Med Refill Encounter Details Date Type Department Care Team (Late st Contact Info) Description 02/15/2023 Refill [facility] MEDICINE 230 [place], [place] [phone] Radha Jamison DO 230 [place], [place] [phone] Chronic bilateral low back pain, unspecified whether [...] Management [facility] MEDICINE 230 [place] [address] Nelia Sullivan PharmD 230 [place] [address] 03/13/2025 9:30 AM EST Office Visit [facility] OPTOMETRY 267 [place] [address] Tarka, Ardha, OD [address] [place] [address] documented as of this encounter Goals Goal [...] documented as of this encounter Care Teams Poultry Offal Worker Relationship Specialty Start Date End Date Radha Jamison DO 230 [place] [address] PCP - General Family Medicine 01/26/12 Abdias Murillo, PharmD [address] [place] [address] Pharmacist Internal Medicine 03/21/22 08/30/23 Nelia Sullivan PharmD [address] [place] [address] Pharmacist Internal Medicine 08/31/23 Letty Rinaldi 12/16/24 12/18/24 Dalila Carson RN [address] [place] [address] Registered Nurse Family Medicine 12/31/24 Ekta Reynolds 12/31/24 Laurel Monterroso JanitorMedical Numerical Control Operator 10/27/22 Saige Aguilar 09/26/23 documented as of this encounter
--- OUTSIDE RECORDS SUMMARY | 2025-01-06 06:00 | XMS_ITS | Encounter Summary ---
Author Organization [employer] Address [address] [facility] 7t [place] [address] Care Team Providers Care Acoustical Material Worker Name Role Phone Radha Jamison DO Primary Care Provider Abdias Murillo PharmD Unavailable Unavail able Nelia Sullivan PharmD Unavailable Letty Rinaldi Unavailable Dalila Carson RN Unavailable [phone] Ekta Reynolds Unavailable Reason for Visit * Reason Comments Med Refill Encounter Details Date Type Department Care Team (Late st Contact Info) Description 12/20/2022 Refill [facility] MEDICINE 230 [place], [place] [phone] Radha Jamison DO 230 [place], [place] [phone] Chronic bilateral low back pain, unspecified whether [...] Description 01/07/2025 10:00 AM EST Medication Management [facility] MEDICINE 230 [place] [address] Nelia Sullivan PharmD 230 [place] [address] 03/13/2025 9:30 AM EST Office Visit [facility] OPTOMETRY [address] [place] [address] Tarka, Radha, OD [address] [place] [address] documented as of this encounter Goals Goal [...] documented as of this encounter Care Teams Acoustical Material Worker Relationship Specialty Start Date End Date Radha Jamison DO 230 [place] [address] PCP - General Family Medicine 01/26/12 Abdias Murillo, PharmD 230 [place] [address] Pharmacist Internal Medicine 03/21/22 08/30/23 Nelia Sullivan PharmD 230 [place] [address] Pharmacist Internal Medicine 08/31/23 Letty Rinaldi 12/16/24 12/18/24 Dalila Carson RN [address] [place] [address] Registered Nurse Family Medicine 12/31/24 Ekta Reynolds 12/31/24 Laurel Monterroso Hops FarmworkerTruck Guard 10/27/22 Saige Aguilar 09/26/23 documented as of this encounter
--- OUTSIDE RECORDS SUMMARY | 2025-01-06 06:00 | XMS_ITS | Encounter Summary ---
Author Organization [employer] Address [address] [facility] 7t [place] [address] Care Team Providers Care Showplace Manager Name Role Phone Radha Jamison DO Primary Care Provider Abdias Murillo PharmD Unavailable Unavail able Nelia Sullivan PharmD Unavailable [phone] Letty Rinaldi Unavailable Dalila Carson RN Unavailable [phone] Ekta Reynolds Unavailable Reason for Visit * Reason Comments Med Refill Encounter Details Date Type Department Care Team (Late st Contact Info) Description 07/20/2022 Refill [facility] 230 [place], [place] [phone] Radha Jamison DO 230 [place] [address] Hypertension, unspecified type Social History Tobacco Use [...] Management [facility] MEDICINE 230 [place] [address] Nelia Sullivan PharmD 230 [place] [address] 03/13/2025 9:30 AM EST Office Visit [facility] OPTOMETRY [address] [place] [address] Radha Taylor, OD [address] [place] [address] documented as of this encounter Goals Goal [...] documented as of this encounter Care Teams Showplace Manager Relationship Specialty Start Date End Date Radha Jamison DO [address] [place] [address] PCP - General Family Medicine 01/26/12 Abdias Murillo, PharmD [address] [place] [address] Pharmacist Internal Medicine 03/21/22 08/30/23 Nelia Sullivan, PharmD [address] [place] [address] Pharmacist Internal Medicine 08/31/23 Letty Rinaldi 12/16/24 12/18/24 Dalila Carson RN [address] [place] [address] Registered Nurse Family Medicine 12/31/24 Ekta Reynolds 12/31/24 Laurel Monterroso Riveting Machine Operator AutomaticSenior Mechanical Designer 10/27/22 Saige Aguilar 09/26/23 documented as of this encounter
--- OUTSIDE RECORDS SUMMARY | 2025-01-06 06:00 | XMS_ITS | Encounter Summary ---
Author Organization [employer] Address [address] [facility] 7t [place] [address] Care Team Providers Care Machinist Linotype Name Role Phone Radha Jamison DO Primary Care Provider [phone] Abdias Murillo PharmD Unavailable Unavail able Nelia Sullivan PharmD Unavailable Letty Rinaldi Unavailable Dalila Carson RN Unavailable [phone] Ekta Reynolds Unavailable Reason for Visit * Reason Comments Med Refill Encounter Details Date Type Department Care Team (Late st Contact Info) Description 02/14/2023 Refill [facility] MEDICINE 230 [place], [place] [phone] Radha Jamison DO [address] [place], [place] [phone] Chronic bilateral low back pain, unspecified whether [...] Description 01/07/2025 10:00 AM EST Medication Management [facility] MEDICINE [address] [place] [address] Nelia Sullivan PharmD 230 [place] [address] 03/13/2025 9:30 AM EST Office Visit [facility] OPTOMETRY [address] [place] [address] Tarka, Radha, OD 267 [place] [address] documented as of this encounter Goals Goal [...] as of this encounter Care Teams Machinist Linotype Relationship Specialty Start Date End Date Radha Jamison DO 230 [place] [address] PCP - General Family Medicine 01/26/12 Abdias Murillo, PharmD 230 [place] [address] Pharmacist Internal Medicine 03/21/22 08/30/23 Nelia Sullivan PharmD 230 [place] [address] Pharmacist Internal Medicine 08/31/23 Letty Rinaldi 12/16/24 12/18/24 Dalila Carson RN [address] [place] [address] Registered Nurse Family Medicine 12/31/24 Ekta Reynolds 12/31/24 Laurel Monterroso Wharf HandCoffee Blender 10/27/22 Saige Aguilar 09/26/23 documented as of this encounter
--- OUTSIDE RECORDS SUMMARY | 2025-01-06 06:00 | XMS_ITS | Encounter Summary ---
Author Organization [employer] Address 75 [facility] 7t [place] [address] Care Team Providers Care Fur Coat Sewer Name Role Phone Radha Jamison DO Primary Care Provider [phone] Nelia Sullivan PharmD Unavailable [phone] Dalila Carson RN Unavailable [phone] Ekta Reynolds Unavailable Reason for Visit * Reason Comments Med Refill Encounter Details Date Type Department Care Team (Late st Contact Info) Description 01/02/2025 Refill [facility] MEDICINE 230 [place] [address] Radha Jamison DO 230 [place], [place] [phone] Mood disorder (CMS/HCC) Social History Tobacco Use [...] Medication Management [facility] MEDICINE 230 [place] [address] Nelia Sullivan PharmD [address] [place] [address] 03/13/2025 9:30 AM EST Office Visit [facility] OPTOMETRY [address] [place] [address] Radha Taylor, OD [address] [place] [address] documented as of this encounter Goals Goal [...] as of this encounter Visit Diagnoses Diagnosis Mood disorder (CMS/HCC) Unspecified episodic mood disorder documented in this encounter Additional Health Concerns Active [...] documented as of this encounter Care Teams Fur Coat Sewer Relationship Specialty Start Date End Date Radha Jamison DO [address] [place] [address] [phone] PCP - General Family Medicine 01/26/12 Nelia Sullivan PharmD 230 [place], [place] [phone] Pharmacist Internal Medicine 08/31/23 Dalila Carson, JOANN [address] [place] [address] [id number] Registered Nurse Family Medicine 12/31/24 Ekta Reynolds 12/31/24 Laurel Monterroso Masking Machine OperatorUnit Aide Tech 10/27/22 Saige Aguilar 09/26/23 documented as of this encounter
--- OUTSIDE RECORDS SUMMARY | 2025-01-06 06:00 | XMS_ITS | Encounter Summary ---
Author Organization [employer] Address 75 [facility] 7t [place] [address] Care Team Providers Care Platform Power Technician Name Role Phone Radha Jamison DO Primary Care Provider Abdias Murillo PharmD Unavailable Unavail able Nelia Sullivan PharmD Unavailable Letty Rinaldi Unavailable Dalila Carson RN Unavailable [phone] Ekta Reynolds Unavailable Reason for Visit * Reason Comments Med Refill Encounter Details Date Type Department Care Team (Late st Contact Info) Description 01/24/2022 Telephone [facility] [address] [place] [address] Radha Jamison DO 230 [place] [address] Med Refill Social History Tobacco Use Types [...] Management [facility] MEDICINE 230 [place] [address] Nelia Sullivan PharmD [address] [place] [address] 03/13/2025 9:30 AM EST Office Visit [facility] OPTOMETRY [address] [place] [address] TarRadha bang, OD [address] [place] [address] documented as of this encounter Visit Diagnoses Diagnosis Chronic bilateral low back pain, unspecified whether sciatica present documented in this encounter Care Teams Platform Power Technician Relationship Specialty Start Date End Date Radha Jamison DO [address] [place] [address] PCP - General Family Medicine 01/26/12 Abdias Murillo PharmD [address] [place] [address] Pharmacist Internal Medicine 03/21/22 08/30/23 Nelia Sullivan PharmD [address] [place] [address] Pharmacist Internal Medicine 08/31/23 Letty Rinaldi 12/16/24 12/18/24 Dalila Carson, JOANN [address] [place] [address] [place] [address] Registered Nurse Family Medicine 12/31/24 Ekta Reynolds 12/31/24 Laurel Monterroso Communications ProgrammerPrice Analyst 10/27/22 Saige Aguilar 09/26/23 documented as of this encounter
--- OUTSIDE RECORDS SUMMARY | 2025-01-06 06:00 | XMS_ITS | Encounter Summary ---
Author Organization [employer] Address 75 [facility] 7t [place] [address] Care Team Providers Care Crab Picker Name Role Phone Radha Jamison DO Primary Care Provider Nelia Sullivan PharmD Unavailable [phone] Letty Rinaldi Unavailable Dalila Carson RN Unavailable [phone] Ekta Reynolds Unavailable Reason for Visit * Reason Comments Med Refill Encounter Details Date Type Department Care Team (Late st Contact Info) Description 11/21/2023 Refill [facility] MEDICINE 230 [place], [place] [phone] Radha Jamison DO 230 [place], [place] [phone] Chronic bilateral low back pain, unspecified whether [...] Description 01/07/2025 10:00 AM EST Medication Management [facility] MEDICINE 230 [place] [address] Nelia Sullivan, PharmD [address] [place] [address] 03/13/2025 9:30 AM EST Office Visit [facility] OPTOMETRY [address] [place] [address] Radha Taylor, OD [address] [place] [address] documented as of this encounter Goals Goal [...] documented as of this encounter Care Teams Crab Picker Relationship Specialty Start Date End Date Radha Jamison DO 230 [place] [address] PCP - General Family Medicine 01/26/12 Nelia Sullivan, PharmD 230 [place] [address] Pharmacist Internal Medicine 08/31/23 Letty Rinaldi 12/16/24 12/18/24 Dalila Carson, JOANN [address] [place] [address] Registered Nurse Family Medicine 12/31/24 Ekta Reynolds 12/31/24 Laurel Monterroso Finish Repair WorkerStaff Trainer 10/27/22 Saige Aguilar 09/26/23 documented as of this encounter
--- OUTSIDE RECORDS SUMMARY | 2025-01-06 06:00 | XMS_ITS | Encounter Summary ---
Author Organization [employer] Address [address] [facility] 7t [place] [address] Care Team Providers Care Special Forces Warrant Officer Name Role Phone Radha Jamison DO Primary Care Provider Abdias Murillo PharmD Unavailable Unavail able Nelia Sullivan PharmD Unavailable [phone] Letty Rinaldi Unavailable Dalila Carson RN Unavailable [phone] Ekta Reynolds Unavailable Reason for Visit * Reason Onset Date Comments Appointment Request 03/09/2023 Encounter Details Date Type Department Care Team (Late st Contact Info) Description 03/09/2023 Telephone [facility] MEDICINE [address] [place], [place] [phone] Radha Jamison DO 230 [place], [place] [phone] Appointment Request Social History Tobacco Use Types [...] denied any concerns. Please contact pt at [phone] documented in this encounter Plan of Treatment Upcoming Encounters Date Type Department Care Team (Late st Contact Info) Description 01/07/2025 10:00 AM EST Medication Management [facility] MEDICINE [address] [place] [address] Nelia Sullivan, PharmD [address] [place] [address] 03/13/2025 9:30 AM EST Office Visit [facility] OPTOMETRY 267 [place], [place] [phone] Radha Taylor OD 267 [place] [address] documented as of this encounter Goals Goal [...] documented as of this encounter Care Teams Special Forces Warrant Officer Relationship Specialty Start Date End Date Radha Jamison DO [address] [place] [address] PCP - General Family Medicine 01/26/12 Abdias Murillo, PharmD [address] [place] [address] Pharmacist Internal Medicine 03/21/22 08/30/23 Nelia Sullivan PharmD [address] [place] [address] Pharmacist Internal Medicine 08/31/23 Letty Rinaldi 12/16/24 12/18/24 Dalila Carson, JOANN [address] [place] [address] Registered Nurse Family Medicine 12/31/24 Ekta Reynolds 12/31/24 Laurel Monterroso Cotton WringerSocial Worker School 10/27/22 Saige Aguilar 09/26/23 documented as of this encounter
--- OUTSIDE RECORDS SUMMARY | 2025-01-06 06:00 | XMS_ITS | Encounter Summary ---
Author Organization [employer] Address [address] [facility] 7t [place] [address] Care Team Providers Care Hebrew Cantor Name Role Phone Radha Jamison DO Primary Care Provider [phone] Abdias Murillo PharmD Unavailable Unavail able Nelia Sullivan PharmD Unavailable [phone] Letty Rinaldi Unavailable Dalila Carson RN Unavailable [phone] Ekta Reynlods Unavailable Reason for Visit * Reason Comments Med Refill Encounter Details Date Type Department Care Team (Late Contact Info) Description 01/31/[address] [facility] [address] [place] [address] Radha Jamison DO [address] [place] [address] Chronic bilateral low back pain, unspecified whether [...] AM EST Medication Management [facility] MEDICINE [address] [place] [address] Nelia Sullivan PharmAdrian [address] [place] [address] 03/13/2025 9:30 AM EST Office Visit [facility] OPTOMETRY [address] [place] [address] Anamerritt Radha, OD [address] [place] [address] documented as of this encounter Visit Diagnoses Diagnosis Chronic bilateral low back pain, unspecified whether sciatica present documented in this encounter Care Teams Hebrew Cantor Relationship Specialty Start Date End Date Radha Jamison DO [address] [place] [address] PCP - General Family Medicine 01/26/12 Abdias Murillo, PharmD [address] [place] [address] Pharmacist Internal Medicine 03/21/22 08/30/23 Nelia Sullivan, PharmD [address] [place] [address] Pharmacist Internal Medicine 08/31/23 Letty Rinaldi 12/16/24 12/18/24 Dalila Carson, RN [address] [place] [address] Registered Nurse Family Medicine 12/31/24 Ekta Reynolds 12/31/24 Laurel Monterroso Aircraft Seat UpholstererRetread Supervisor 10/27/22 Saige Aguilar 09/26/23 documented as of this encounter
--- OUTSIDE RECORDS SUMMARY | 2025-01-06 06:00 | XMS_ITS | Encounter Summary ---
Author Organization [employer] Address [address] [facility] 7t [place] [address] Care Team Providers Care Clinical Trial Manager Name Role Phone Radha Jamison DO Primary Care Provider Nelia Sullivan PharmD Unavailable Letty Rinaldi Unavailable Dalila Carson RN Unavailable [phone] Ekta Reynolds Unavailable Encounter Details Date Type Department Care Team (Late st Contact Info) Description 01/30/2024 Telephone [facility] MED & PEDS [address] [place] [address] Radha Jamison DO [address] [place], [place] [phone] Social History Tobacco Use Types Packs/Day Years [...] 10:00 AM EST Medication Management [facility] MEDICINE [address] [place] [address] Nelia Sullivan, PharmD [address] [place] [address] 03/13/2025 9:30 AM EST Office Visit [facility] OPTOMETRY [address] [place] [address] Radha Taylor, OD [address] [place] [address] documented as of this encounter Goals Goal [...] as of this encounter Care Teams Clinical Trial Manager Relationship Specialty Start Date End Date Radha Jamison DO [address] [place] [address] PCP - General Family Medicine 01/26/12 Nelia Sullivan, PharmD [address] [place] [address] Pharmacist Internal Medicine 08/31/23 Letty Rinaldi 12/16/24 12/18/24 Dalila Carson, JOANN [address] [place] [address] Registered Nurse Family Medicine 12/31/24 Ekta Reynolds 12/31/24 Laurel Monterroso Loading Dock HelperGlobal Head Advertiser Solutions 10/27/22 Saige Aguilar 09/26/23 documented as of this encounter
--- OUTSIDE RECORDS SUMMARY | 2025-01-06 06:00 | XMS_ITS | Encounter Summary ---
Author Organization [employer] Address [address] [facility] 7t [place] [address] Care Team Providers Care Dinkey Locomotive Engineer Name Role Phone Radha Jamison DO Primary Care Provider Nelia Sullivan PharmD Unavailable [phone] Dalila Carson RN Unavailable Ekta Reynolds Unavailable Reason for Visit * Reason Onset Date Comments Appointment Request 12/30/2024 Encounter Details Date Type Department Care Team ([facility] st Contact Info) Description 12/30/[address] [facility] MEDICINE [address] [place], [place] [phone] Radha Jamison DO [address] [place], [place] [phone] Appointment Request Social History Tobacco Use Types [...] to get Oxycodone prescribed Contact pt at [phone] (ivorian) documented in this encounter Plan of Treatment Upcoming Encounters Date Type Department Care Team ([facility] st Contact Info) Description 01/07/2025 10:00 AM EST Medication Management [facility] MEDICINE [address] [place], [place] [phone] Nelia Sullivan, PharmD [address] [place] [address] 03/13/2025 9:30 AM EST Office Visit [facility] OPTOMETRY [address] [place] [address] Radha Taylor, OD [address] [place] [address] documented as of this encounter Goals Goal [...] documented as of this encounter Care Teams Dinkey Locomotive Engineer Relationship Specialty Start Date End Date Radha Jamison DO [address] [place] [address] PCP - General Family Medicine 01/26/12 Nelia Sullivan PharmD [address] [place] [address] Pharmacist Internal Medicine 08/31/23 Dalila Carson, JOANN [address] [place] [address] Registered Nurse Family Medicine 12/31/24 Ekta Reynolds 12/31/24 Laurel Monterroso Legal Billing SpecialistSports Official 10/27/22 Saige [facility] 09/26/23 documented as of this encounter
--- OUTSIDE RECORDS SUMMARY | 2025-01-06 06:00 | XMS_ITS | Encounter Summary ---
Author Organization [employer] Address [address] [facility] 7t [place] [address] Care Team Providers Care Rug Weaver Name Role Phone Radha Jamison DO Primary Care Provider Abdias Murillo PharmD Unavailable Unavail able Nelia Sullivan PharmD Unavailable Letty Rinaldi Unavailable Dalila Carson RN Unavailable [phone] Ekta Reynolds Unavailable Reason for Visit * Reason Comments Med Refill Encounter Details Date Type Department Care Team (Late st Contact Info) Description 06/10/2022 Refill [facility] MEDICINE [address] [place], [place] [phone] Radha Jamison DO [address] [place], [place] [phone] Chronic bilateral low back pain, unspecified whether [...] Medication Management [facility] MEDICINE [address] [place] [address] Nelia Sullivan PharmD [address] [place] [address] 03/13/2025 9:30 AM EST Office Visit [facility] OPTOMETRY [address] [place] [address] Radha Taylor, OD [address] [place] [address] documented as of this encounter Goals Goal [...] documented as of this encounter Care Teams Rug Weaver Relationship Specialty Start Date End Date Radha Jamison DO [address] [place] [address] PCP - General Family Medicine 01/26/12 Abdias Murillo, PharmD [address] [place] [address] Pharmacist Internal Medicine 03/21/22 08/30/23 Nelia Sullivan PharmD [address] [place] [address] Pharmacist Internal Medicine 08/31/23 Letty Rinaldi 12/16/24 12/18/24 Dalila Carson RN [address] [place] [address] [place]io[place]A [address] Registered Nurse Family Medicine 12/31/24 Ekta Reynolds 12/31/24 Laurel Monterroso Sheet Metal Layout WorkerPulmonary Fellow 10/27/22 Saige Aguilar 09/26/23 documented as of this encounter
--- NOTE | 2025-01-06 06:15 | PC.NURSE ---
pt cancelled she sick
--- OUTSIDE RECORDS SUMMARY | 2025-03-06 09:48 | XMS_ITS | Encounter Summary ---
Author Organization [employer] Address 75 [facility] 7t [place] [address] Care Team Providers Care Order Picker/Assembler Name Role Phone Radha Jamison DO Primary Care Provider [phone] Nelia Sullivan PharmD Unavailable [phone] Letty Rinaldi Unavailable Dalila Carson RN Unavailable [phone] Ekta Reynolds Unavailable Reason for Visit * Reason Comments Med Refill Encounter Details Date Type Department Care Team (Late st Contact Info) Description 02/29/2024 Refill [facility] MEDICINE [address] [place], [place] [phone] Radha Jamison DO [address] [place], [place] [phone] Chronic bilateral low back pain, unspecified whether sciatica present Social History Tobacco Use Types Packs/Day Years Used Date Smoking Tobacco: Every Day Cigarettes 1 45.5 Started: 08/31/1979 Passive Smoke Exposure: Current Smokeless [...] until seen by PCP or seen by SHELTER DIRECTOR. Scheduled SHELTER DIRECTOR 03/05/24. documented in this encounter Plan of Treatment Upcoming Encounters Date Type Department Care Team (Late st Contact Info) Description 03/07/2025 11:00 AM EST Office Visit [facility] CHC ADULT DENTAL [address] [place] [address] Umang Hampton 03/13/2025 9:30 AM EST Office Visit [facility] OPTOMETRY [address] [place] [address] Radha Taylor, OD [address] [place] [address] 03/17/2025 11:30 AM EST Medication Management [facility] MEDICINE [address] [place] [address] Nelia Sullivan, PharmD [address] [place] [address] documented as of this encounter Goals Goal [...] documented as of this encounter Care Teams Order Picker/Assembler Relationship Specialty Start Date End Date Radha Jamison DO [address] [place] [address] PCP - General Family Medicine 01/26/12 Nelia Sullivan, PharmD [address] [place] [address] Pharmacist Internal Medicine 08/31/23 Letty Rinaldi 12/16/24 12/18/24 Dalila Carson, RN [address] [place] [address] Registered Nurse Family Medicine 12/31/24 Ekta Reynolds 12/31/24 Laurel Monterroso Digital Forensic ExaminerTesting Machine Operator 02/20/25 Saige Aguilar 09/26/23 documented as of this encounter
--- OUTSIDE RECORDS SUMMARY | 2025-03-06 09:48 | XMS_ITS | Encounter Summary ---
Author Organization [employer] Address 75 [facility] 7t [place] [address] Care Team Providers Care Telecommunication Engineer Name Role Phone Radha Jamison DO Primary Care Provider Nelia Sullivan PharmD Unavailable Letty Rinaldi Unavailable Dalila Carson RN Unavailable [phone] Ekta Reynolds Unavailable Reason for Visit * Reason Comments Med Refill Encounter Details Date Type Department Care Team (Late st Contact Info) Description 03/05/2024 Telephone [facility] MEDICINE [address] [place], [place] [phone] Radha Jamison DO [address] [place], [place] [phone] Med Refill Social History Tobacco Use Types [...] Description 03/07/2025 11:00 AM EST Office Visit [facility] CHC ADULT DENTAL [address] [place] [address] Umang Hampton 03/13/2025 9:30 AM EST Office Visit [facility] OPTOMETRY [address] [place] [address] Radha Taylor, OD [address] [place] [address] 03/17/2025 11:30 AM EST Medication Management [facility] MEDICINE [address] [place] [address] Nelia Sullivan, PharmD [address] [place] [address] documented as of this encounter Goals Goal Patient Goal Type Associated Problems Recent Progress Patient-Stated? Author Record your blood pressure once per day Blood Pressure No Nelia Sullivan, PharmD Blood Pressure < 140/90 Blood Pressure 120/58(2024 10:33 AM EST) No Yazmin Sullivansa, PharmD Smoking cessation General No Puia Nelia, [...] documented as of this encounter Care Teams Telecommunication Engineer Relationship Specialty Start Date End Date Radha Jamison DO [address] [place] [address] PCP - General Family Medicine 01/26/12 Nelia Sullivan, PharmD [address] [place] [address] Pharmacist Internal Medicine 08/31/23 Letty Rinaldi 12/16/24 12/18/24 Dalila Carson, JOANN [address] [place] [address] Registered Nurse Family Medicine 12/31/24 Ekta Reynolds 12/31/24 Laurel Monterroso Mop ManDirector Clinical Information Services 02/20/25 Saige Aguilar 09/26/23 documented as of this encounter
--- OUTSIDE RECORDS SUMMARY | 2025-03-06 09:48 | XMS_ITS | Encounter Summary ---
Author Organization [employer] Address 75 [facility] 7t [place] [address] Care Team Providers Care Group Supervisor Yard Name Role Phone Radha Jamison DO Primary Care Provider Nelia Sullivan PharmD Unavailable [phone] Letty Rinaldi Unavailable Dalila Carson RN Unavailable [phone] Ekta Reynolds Unavailable Reason for Visit * Reason Comments Med Refill Encounter Details Date Type Department Care Team (Late st Contact Info) Description 12/28/2023 Refill [facility] MEDICINE 230 [place], [place] [phone] Radha Jamison DO [address] [place], [place] [phone] Chronic bilateral low back pain, unspecified whether [...] Description 03/07/2025 11:00 AM EST Office Visit [facility] CHC ADULT DENTAL [address] [place] [address] Umang Hampton 03/13/2025 9:30 AM EST Office Visit [facility] OPTOMETRY [address] [place] [address] Radha Taylor, OD [address] [place] [address] 03/17/2025 11:30 AM EST Medication Management [facility] MEDICINE [address] [place] [address] Nelia Sullivan, PharmD [address] [place] [address] documented as of this encounter Goals Goal [...] Result Component 10.1(12/07/19 12:48 PM EDT) No Dellogono Abdias, PharmD Record [...] documented as of this encounter Care Teams Group Supervisor Yard Relationship Specialty Start Date End Date Radha Jamison DO [address] [place] [address] PCP - General Family Medicine 01/26/12 Nelia Sullivan, PharmD [address] [place] [address] Pharmacist Internal Medicine 08/31/23 Letty Rinaldi 12/16/24 12/18/24 Dalila Carson, JOANN [address] [place] [address] Registered Nurse Family Medicine 12/31/24 Ekta Reynolds 12/31/24 Laurel Monterroso Deputy Sheriff Civil DivisionStudio Associate 02/20/25 Saige Aguilar 09/26/23 documented as of this encounter
--- OUTSIDE RECORDS SUMMARY | 2025-03-06 09:49 | XMS_ITS | Encounter Summary ---
Author Organization [employer] Address [address] [facility] 7t [place] [address] Care Team Providers Care Chalk Cutter Name Role Phone Radha Jamison DO Primary Care Provider Abdias Murillo PharmD Unavailable Unavail able Nelia Sullivan PharmD Unavailable Letty Rinaldi Unavailable Dalila Carson RN Unavailable [phone] Ekta Reynolds Unavailable Reason for Visit * Reason Onset Date Comments uber 05/08/2023 Encounter Details Date Type Department Care Team (Late st Contact Info) Description 05/08/2023 Telephone [facility] MEDICINE 230 [place], [place] [phone] Radha Jamison DO 230 [place], [place] [phone] uber Social History Tobacco Use Types Packs/Day [...] / denial letter via mail. PT-1 Request [id number] Pending . [facility] [address] [place] [address] Pit Shovel Operator noticed pt has pending referrals. Pit Shovel Operator has added a note to each to add PT1 for referred tooffice. * Telephone Encounter - Ginna Stephen RN - 05/10/2023 9:31 AM EDT Uber booked for tomorrow 8:45am. TC placed to pt. And made pt. Aware. Pt. Also reports PT-1 expiredand would like it renewed for next time, to [facility] * Telephone Encounter - Ciera Carson - 05/10/2023 9:07 AM EDT Tc from pt calling in regards to message above. Pt also received a call, specifications writer does not see any documentation. Please contact pt at [phone] * Telephone Encounter - Ciera Alli - 05/08/2023 12:54 PM EDT Tc from pt states will need uber transportation for 05/10 OV with provider. Please contact pt at [phone] documented in this encounter Plan of Treatment Upcoming Encounters Date Type Department Care Team (Late st Contact Info) Description 03/07/2025 11:00 AM EST Office Visit [facility] CHC ADULT DENTAL [address] [place], [place] [phone] Umang Hampton 03/13/2025 9:30 AM EST Office Visit [facility] OPTOMETRY [address] [place] [address] Radha Taylor, OD 267 [place] [address] 03/17/2025 11:30 AM EST Medication Management [facility] MEDICINE 230 [place] [address] Nelia Sullivan PharmD 230 [place] [address] documented as of this encounter Goals Goal [...] documented as of this encounter Care Teams Chalk Cutter Relationship Specialty Start Date End Date Radha Jamison DO [address] [place] [address] PCP - General Family Medicine 01/26/12 Abdias Murillo, PharmD 230 [place] [address] Pharmacist Internal Medicine 03/21/22 08/30/23 Nelia Sullivan PharmD 230 [place] [address] Pharmacist Internal Medicine 08/31/23 Letty Rinaldi 12/16/24 12/18/24 Dalila Carson, JOANN [address] [place] [address] Registered Nurse Family Medicine 12/31/24 Etka Reynolds 12/31/24 Laurel Monterroso NnpsBusiness Analyst Ecommerce 02/20/25 Saige Aguilar 09/26/23 documented as of this encounter
--- OUTSIDE RECORDS SUMMARY | 2025-03-06 09:49 | XMS_ITS | Encounter Summary ---
Author Organization [employer] Address 75 [facility] 7t [place] [address] Care Team Providers Care Monument Mason Name Role Phone Radha Jamison DO Primary Care Provider Nelia Sullivan PharmD Unavailable [phone] Letty Rinaldi Unavailable Dalila Carson RN Unavailable [phone] Ekta Reynlods Unavailable Reason for Visit * Reason Onset Date Comments Med Refill 03/06/2024 Encounter Details Date Type Department Care Team (Late st Contact Info) Description 03/06/2024 Telephone [facility] MEDICINE 230 [place], [place] [phone] Radha Jamison DO 230 [place], [place] [phone] Med Refill Social History Tobacco Use Types [...] immediate release tablet To be sent to: [facility] pharmacy documented in this encounter Plan of Treatment Upcoming Encounters Date Type Department Care Team (Late st Contact Info) Description 03/07/2025 11:00 AM EST Office Visit [facility] CHC ADULT DENTAL [address] [place] [address] Umang Hampton 03/13/2025 9:30 AM EST Office Visit [facility] OPTOMETRY [address] [place], [place] [phone] Radha Taylor, OD [address] [place] [address] 03/17/2025 11:30 AM EST Medication Management [facility] MEDICINE 230 [place] [address] Nelia Sullivan, PharmD 230 [place] [address] documented as of this encounter Goals Goal [...] documented as of this encounter Care Teams Monument Mason Relationship Specialty Start Date End Date Radha Jamison DO [address] [place] [address] [phone] PCP - General Family Medicine 01/26/12 Laurie, Nelia, PharmD [address] [place] [address] Pharmacist Internal Medicine 08/31/23 Letty Rinaldi 12/16/24 12/18/24 Dalila Carson RN [address] [place] [address] Registered Nurse Family Medicine 12/31/24 Ekta Reynolds 12/31/24 Laurel Monterroso Millinery SalespersonInstructor Kindergarten 02/20/25 Saige Aguilar 09/26/23 documented as of this encounter
--- OUTSIDE RECORDS SUMMARY | 2025-03-06 09:49 | XMS_ITS | Encounter Summary ---
Author Organization [employer] Address 75 [facility] 7t [place] [address] Care Team Providers Care Rn Hyperbaric Name Role Phone Radha Jamison DO Primary Care Provider Nelia Sullivan PharmD Unavailable [phone] Letty Rinaldi Unavailable Dalila Carson RN Unavailable [phone] Ekta Reynolds Unavailable Reason for Visit * Reason Onset Date Comments Nurse Triage 10/07/2024 Encounter Details Date Type Department Care Team (Late st Contact Info) Description 10/07/2024 Telephone [facility] MEDICINE 230 [place], [place] [phone] Radha Jamison DO 230 [place], [place] [phone] Nurse Triage Social History Tobacco Use Types [...] 10/07/2024 12:10 PM EDT Triage call with [facility] veterinary assistant ID [id number] Pt reports swelling of bilateral lower extremities [...] advised to come to the [facility] at [facility] to be seen by provider open till [...] caller accepted this outcome. Contact pt at [phone] documented in this encounter Plan of Treatment Upcoming Encounters Date Type Department Care Team (Late st Contact Info) Description 03/07/2025 11:00 AM EST Office Visit [facility] CHC ADULT DENTAL [address] [place] [address] Umang Hampton 03/13/2025 9:30 AM EST Office Visit [facility] OPTOMETRY 267 [place] [address] Radha Taylor, OD 267 [place] [address] 03/17/2025 11:30 AM EST Medication Management [facility] MEDICINE 230 [place] [address] Nelia Sullivan PharmD 230 [place] [address] documented as of this encounter Goals Goal Patient Goal Type Associated Problems Recent Progress Patient-Stated? Author Record your blood pressure once per day Blood Pressure No Puia, Nelia, PharmD Blood Pressure < 140/90 Blood Pressure 120/58(2024 10:33 AM EST) No PuiaFeliceNelia, PharmD Smoking cessation General No PuiaFeliceNelia, PharmD Patient will adhere to medication regimen General No PuiaFeliceNelia, PharmD Hemoglobin A1c < 7 Result Component 10.1(12/07/19 25 12:48 PM EDT) No DelAbdias hardy PharmD Record [...] documented as of this encounter Care Teams Rn Hyperbaric Relationship Specialty Start Date End Date Radha Jamison DO 230 [place] [address] PCP - General Family Medicine 01/26/12 Nelia Sullivan PharmD 230 [place] [address] Pharmacist Internal Medicine 08/31/23 Letty Rinaldi 12/16/24 12/18/24 Dalila Carson, JOANN [address] [place] [address] Registered Nurse Family Medicine 12/31/24 Ekta Reynolds 12/31/24 Laurel Monterroso Payloader Machine OperatorBrim Stiffener 02/20/25 Saige Aguilar 09/26/23 documented as of this encounter
--- OUTSIDE RECORDS SUMMARY | 2025-03-06 09:49 | XMS_ITS | Encounter Summary ---
Author Organization [employer] Address 75 [facility] 7t [place] [address] Care Team Providers Care Dishwashing Machine Repairer Name Role Phone Radha Jamison DO Primary Care Provider Nelia Sullivan PharmD Unavailable [phone] Letty Rinaldi Unavailable Dalila Carson RN Unavailable [phone] Ekta Reynolds Unavailable Reason for Visit * Reason Comments Med Refill Encounter Details Date Type Department Care Team (Late st Contact Info) Description 05/17/2024 Refill [facility] MEDICINE 230 [place], [place] [phone] Radha Jamison DO 230 [place], [place] [phone] Chronic bilateral low back pain, unspecified whether [...] Description 03/07/2025 11:00 AM EST Office Visit [facility] CHC ADULT DENTAL [address] [place] [address] Umang Hampton 03/13/2025 9:30 AM EST Office Visit [facility] OPTOMETRY 267 [place] [address] Radha Taylor, OD 267 [place] [address] 03/17/2025 11:30 AM EST Medication Management [facility] MEDICINE 230 [place] [address] Nelia Sullivan, PharmD 230 [place] [address] documented as of this encounter Goals Goal [...] documented as of this encounter Care Teams Dishwashing Machine Repairer Relationship Specialty Start Date End Date Radha Jamison DO 230 [place] [address] PCP - General Family Medicine 01/26/12 Nelia Sullivan, PharmD 230 [place] [address] Pharmacist Internal Medicine 08/31/23 Letty Rinaldi 12/16/24 12/18/24 Dalila Carson, JOANN [address] [place] [address] Registered Nurse Family Medicine 12/31/24 Ekta Reynolds 12/31/24 Laurel Monterroso Product Marketing CoordinatorGarde Manager 02/20/25 Saige Aguilar 09/26/23 documented as of this encounter
--- OUTSIDE RECORDS SUMMARY | 2025-03-06 09:49 | XMS_ITS ---
Author Organization [employer] Address [address] [facility] 7t [place] [address] Care Team Providers Care Recruiter Coordinator Name Role Phone Radha Jamison DO Primary Care Provider [phone] Nelia Sullivan PharmD Unavailable Dalila Carson RN Unavailable [phone] Ekta Reynolds Unavailable CM Complex Status:Outreach In Progress (Enrolling) Start date:12/31/2024 Enrollment reason:Referred by provider Overview Home Health Utilization- Please coordinate with Dalila for connection of services with [employer] [facility] for half-way reduction. Case Team Name Relationship Phone Dalila Carson RN(Responsible Staff) Registered Nurse [phone] Continued Care and Services Coordination
--- OUTSIDE RECORDS SUMMARY | 2025-03-06 09:49 | XMS_ITS | Encounter Summary ---
Author Organization [employer] Address 75 [facility] 7t [place] [address] Care Team Providers Care Food And Nutrition Services Supervisor Name Role Phone Radha Jamison DO Primary Care Provider Abdias Murillo PharmD Unavailable Unavail able Nelia Sullivan PharmD Unavailable [phone] Letty Rinaldi Unavailable Dalila Carson RN Unavailable [phone] Ekta Reynolds Unavailable Reason for Visit * Reason Comments Med Refill Encounter Details Date Type Department Care Team (Late st Contact Info) Description 04/14/[address] [facility] MEDICINE [address] [place], [place] [phone] Radha Jamison DO 230 [place], [place] [phone] Type 2 diabetes mellitus with hyperglycemia, with long-term current use of insulin ([facility]) Social History Tobacco Use Types Packs/Day Years [...] Description 03/07/2025 11:00 AM EST Office Visit [facility] CHC ADULT DENTAL [address] [place] [address] Umang Hampton 03/13/2025 9:30 AM EST Office Visit [facility] OPTOMETRY [address] [place] [address] TarkaRadha, OD [address] [place] [address] 03/17/2025 11:30 AM EST Medication Management [facility] MEDICINE [address] [place] [address] Nelia Sullivan, PharmD 230 [place] [address] documented as of this encounter Goals Goal [...] of this encounter Care Teams Food And Nutrition Services Supervisor Relationship Specialty Start Date End Date Radha Jamison DO [address] [place] [address] PCP - General Family Medicine 01/26/12 Abdias Murillo, PharmD [address] [place] [address] Pharmacist Internal Medicine 03/21/22 08/30/23 Nelia Sullivan, KeithD [address] [place] [address] Pharmacist Internal Medicine 08/31/23 Letty Rinaldi 12/16/24 12/18/24 Dalila Carson RN [address] [place] [address] Registered Nurse Family Medicine 12/31/24 Ekta Reynolds 12/31/24 Laurel Monterroso Customer Care SpecialistOffice Manager Receptionist 02/20/25 Saige Aguilar 09/26/23 documented as of this encounter
--- OUTSIDE RECORDS SUMMARY | 2025-03-06 09:49 | XMS_ITS | Encounter Summary ---
Author Organization [employer] Address 75 [facility] 7t [place] [address] Care Team Providers Care Egg Trayer Name Role Phone Radha Jamison DO Primary Care Provider Abdias Murillo PharmD Unavailable Unavail able Nelia Sullivan PharmD Unavailable Letty Rinaldi Unavailable Dalila Carson RN Unavailable [phone] Ekta Reynolds Unavailable Reason for Visit * Reason Comments Med Refill Encounter Details Date Type Department Care Team (Late st Contact Info) Description 04/14/2023 Refill [facility] MEDICINE 230 [place], [place] [phone] Radha Jamison DO 230 [place], [place] [phone] Type 2 diabetes mellitus with hyperglycemia, with long-term current use of insulin ([facility]) Social History Tobacco Use Types Packs/Day Years [...] Description 03/07/2025 11:00 AM EST Office Visit [facility] CHC ADULT DENTAL [address] [place] [address] Umang Hampton 03/13/2025 9:30 AM EST Office Visit [facility] OPTOMETRY [address] [place] [address] TarkaRadha, OD [address] [place] [address] 03/17/2025 11:30 AM EST Medication Management [facility] MEDICINE 230 [place] [address] Nelia Sullivan, PharmD 230 [place] [address] documented as of this encounter Goals Goal [...] documented as of this encounter Care Teams Egg Trayer Relationship Specialty Start Date End Date Radha Jamison DO [address] [place] [address] PCP - General Family Medicine 01/26/12 Abdias Murillo, PharmD [address] [place] [address] Pharmacist Internal Medicine 03/21/22 08/30/23 Nelia Sullivan, KeithD [address] [place] [address] Pharmacist Internal Medicine 08/31/23 Letty Rinaldi 12/16/24 12/18/24 Dalila Carson RN [address] [place] [place] [address] Registered Nurse Family Medicine 12/31/24 Ekta Reynolds 12/31/24 Laurel Monterroso Housekeeping ManagerQuality Checker 02/20/25 Saige Aguilar 09/26/23 documented as of this encounter
--- OUTSIDE RECORDS SUMMARY | 2025-03-06 09:49 | XMS_ITS | Encounter Summary ---
Author Organization [employer] Address 75 [facility] 7t [place] [address] Care Team Providers Care Cane Weigher Name Role Phone Radha Jamison DO Primary Care Provider Nelia Sullivan PharmD Unavailable Letty Rinaldi Unavailable Dalila Carson RN Unavailable [phone] Etka Reynolds Unavailable Reason for Visit * Reason Onset Date Comments Med Refill 05/07/2024 Encounter Details Date Type Department Care Team (Late st Contact Info) Description 05/07/2024 Telephone [facility] MEDICINE 230 [place], [place] [phone] Radha Jamison DO 230 [place], [place] [phone] Med Refill Social History Tobacco Use Types [...] immediate release tablet To be sent to: [facility] Pharmacy documented in this encounter Plan of Treatment Upcoming Encounters Date Type Department Care Team (Late st Contact Info) Description 03/07/2025 11:00 AM EST Office Visit [facility] CHC ADULT DENTAL [address] [place] [address] Umang Hampton 03/13/2025 9:30 AM EST Office Visit [facility] OPTOMETRY 267 [place], [place] [phone] Radha Taylor, OD [address] [place] [address] 03/17/2025 11:30 AM EST Medication Management [facility] MEDICINE 230 [place] [address] Puia, Nelia, PharmD 230 [place] [address] documented as of this encounter Goals Goal [...] 10.1(12/07/19 25 12:48 PM EDT) No DellogAbdias octto, PharmD Record your blood sugar as directed [...] documented as of this encounter Care Teams Cane Weigher Relationship Specialty Start Date End Date Radha Jamison DO [address] [place] [address] [phone] PCP - General Family Medicine 01/26/12 Puia, Nelia, PharmD [address] [place] [address] [phone] Pharmacist Internal Medicine 08/31/23 Letty Rinaldi 12/16/24 12/18/24 Dalila Carson, RN [address] [place] [address] [place] [address] Registered Nurse Family Medicine 12/31/24 Ekta Reynolds 12/31/24 Laurel Monterroso Spot WasherParks And Recreation Manager 02/20/25 Saige Aguilar 09/26/23 documented as of this encounter
--- OUTSIDE RECORDS SUMMARY | 2025-03-06 09:49 | XMS_ITS | Encounter Summary ---
Author Organization [employer] Address [address] [facility] 7t [place] [address] Care Team Providers Care Apartment Leasing Manager Name Role Phone Radha Jamison DO Primary Care Provider Nelia Sullivan PharmD Unavailable Letty Rinaldi Unavailable Dalila Carson RN Unavailable Ekta Reynolds Unavailable Reason for Visit * Reason Comments Med Refill Encounter Details Date Type Department Care Team (Late st Contact Info) Description 05/07/[address] [facility] MEDICINE 230 [place], [place] [phone] Radha Jamison DO 230 [place], [place] [phone] Social History Tobacco Use Types Packs/Day Years [...] Description 03/07/2025 11:00 AM EST Office Visit [facility] CHC ADULT DENTAL [address] [place] [address] Umang Hampton 03/13/2025 9:30 AM EST Office [facility] OPTOMETRY 267 [place] [address] Radha Taylor, OD 267 [place] [address] 03/17/2025 11:30 AM EST Medication Management [facility] MEDICINE 230 [place] [address] Nelia Sullivan, PharmD 230 [place] [address] documented as of this encounter Goals Goal [...] Component 10.1(12/07/19 25 12:48 PM EDT) No Dellogono Abdias, PharmD [...] documented as of this encounter Care Teams Apartment Leasing Manager Relationship Specialty Start Date End Date Radha Jamison DO 230 [place] [address] PCP - General Family Medicine 01/26/12 Nelia Sullivan, PharmD 230 [place] [address] Pharmacist Internal Medicine 08/31/23 Letty Rinaldi 12/16/24 12/18/24 Dalila Carson, JOANN 505 [place] [address] Registered Nurse Family Medicine 12/31/24 Ekta Reynolds 12/31/24 Laurel Monterroso Card FolderElectrician Helper Automotive 02/20/25 Saige Aguilar 09/26/23 documented as of this encounter
--- OUTSIDE RECORDS SUMMARY | 2025-03-06 09:49 | XMS_ITS | Encounter Summary ---
Author Organization [employer] Address 75 [facility] 7t [place] [address] Care Team Providers Care Wood Caulker Name Role Phone Radha Jamison DO Primary Care Provider Nelia Sullivan PharmD Unavailable Letty Rinaldi Unavailable Dalila Carson RN Unavailable [phone] Ekta Reynolds Unavailable Reason for Visit * Reason Comments Med Refill Encounter Details Date Type Department Care Team (Late st Contact Info) Description 03/19/2024 Refill [facility] MEDICINE 230 [place], [place] [phone] Radha Jamison DO 230 [place], [place] [phone] Chronic bilateral low back pain, unspecified whether [...] Description 03/07/2025 11:00 AM EST Office Visit [facility] CHC ADULT DENTAL [address] [place] [address] Umang Hampton 03/13/2025 9:30 AM EST Office Visit [facility] OPTOMETRY [address] [place] [address] Radha Taylor, OD 267 [place] [address] 03/17/2025 11:30 AM EST Medication Management [facility] MEDICINE 230 [place] [address] Nelia Sullivan, PharmD [address] [place] [address] documented as of this encounter Goals Goal [...] documented as of this encounter Care Teams Wood Caulker Relationship Specialty Start Date End Date Radha Jamison DO [address] [place] [address] PCP - General Family Medicine 01/26/12 Nelia Sullivan, PharmD [address] [place] [address] Pharmacist Internal Medicine 08/31/23 Letty Rinaldi 12/16/24 12/18/24 Dalila Carson, JOANN [address] [place] [address] Registered Nurse Family Medicine 12/31/24 Ekta Reynolds 12/31/24 Laurel Monterroso Bead WrapperService Promoter Salesperson 02/20/25 Saige Aguilar 09/26/23 documented as of this encounter
--- OUTSIDE RECORDS SUMMARY | 2025-03-06 09:49 | XMS_ITS | Encounter Summary ---
Author Organization [employer] Address 75 [facility] 7t [place] [address] Care Team Providers Care Saw Sharpener Name Role Phone Radha Jamison DO Primary Care Provider Abdias Murillo PharmD Unavailable Unavail able Nelia Sullivan PharmD Unavailable Letty Rinaldi Unavailable Dalila Carson RN Unavailable [phone] Ekta Reynolds Unavailable Reason for Visit * Reason Comments Med Refill Encounter Details Date Type Department Care Team (Late st Contact Info) Description 08/11/2022 Refill [facility] MEDICINE 230 [place], [place] [phone] Radha Jamison DO 230 [place], [place] [phone] Anemia, unspecified type Social History Tobacco Use [...] for patient to contact Mary Reynolds at [phone]. documented in this encounter Plan of Treatment Upcoming Encounters Date Type Department Care Team (Late st Contact Info) Description 03/07/2025 11:00 AM EST Office Visit [facility] CHC ADULT DENTAL [address] [place], [place] [phone] Umang Hampton 03/13/2025 9:30 AM EST Office Visit [facility] OPTOMETRY [address] [place] [address] Radha Taylor, OD 267 [place] [address] 03/17/2025 11:30 AM EST Medication Management [facility] MEDICINE 230 [place] [address] Nelia Sullivan, PharmD 230 [place] [address] documented as of this encounter Goals Goal [...] documented as of this encounter Care Teams Saw Sharpener Relationship Specialty Start Date End Date Radha Jamison DO 230 [place] [address] PCP - General Family Medicine 01/26/12 Abdias Murillo, KeithD [address] [place] [address] Pharmacist Internal Medicine 03/21/22 08/30/23 Nelia Sullivan, KeithD [address] [place] [address] Pharmacist Internal Medicine 08/31/23 Letty Rinaldi 12/16/24 12/18/24 Dalila Carson, RN [address] [place] [address] Registered Nurse Family Medicine 12/31/24 Ekta Reynolds 12/31/24 Laurel Monterroso Baker BreadCougar Hunter 02/20/25 Saige Aguilar 09/26/23 documented as of this encounter
--- OUTSIDE RECORDS SUMMARY | 2025-03-06 09:49 | XMS_ITS | Encounter Summary ---
Author Organization [employer] Address [address] [facility] 7t [place] [address] Care Team Providers Care Train Dispatcher Name Role Phone Radha Jamison DO Primary Care Provider Nelia Sullivan PharmD Unavailable [phone] Letty Rinaldi Unavailable Dalila Carson RN Unavailable [phone] Ekta Reynolds Unavailable Reason for Visit * Reason Onset Date Comments Returning Call 01/17/2024 Hospital Follow-up 01/17/2024 Encounter Details Date Type Department Care Team (Late st Contact Info) Description 01/17/2024 Telephone [facility] MEDICINE [address] [place], [place] [phone] Radha Jamison DO [address] [place], [place] [phone] Returning Call ; Hospital Follow-up Social History [...] 03/07/2025 11:00 AM EST Office Visit [facility] CHC ADULT DENTAL [address] [place] [address] Umang Hampton 03/13/2025 9:30 AM EST Office Visit [facility] OPTOMETRY [address] [place] [address] Radha Taylor, OD [address] [place] [address] 03/17/2025 11:30 AM EST Medication Management [facility] MEDICINE [address] [place] [address] PuNelia cortes, PharmD [address] [place] [address] documented as of this encounter Goals Goal [...] Component 10.1(12/07/19 25 12:48 PM EDT) No DellogonoAbdias, PharmD Record [...] documented as of this encounter Care Teams Train Dispatcher Relationship Specialty Start Date End Date Radha Jamison DO [address] [place] [address] PCP - General Family Medicine 01/26/12 Puia, Nelia, PharmD [address] [place] [address] Pharmacist Internal Medicine 08/31/23 Letty Rinaldi 12/16/24 12/18/24 Dalila Carson, JOANN [address] [place] [address] [place] [address] Registered Nurse Family Medicine 12/31/24 Ekta Reynolds 12/31/24 Laurel Monterroso Ion Implant Machine OperatorPrinter Floor Covering Assistant 02/20/25 Saige Aguilar 09/26/23 documented as of this encounter
--- OUTSIDE RECORDS SUMMARY | 2025-03-06 09:49 | XMS_ITS ---
Author Organization [employer] Address [address] [facility] 7t [place] [address] Care Team Providers Care Axminster Rug Setter Name Role Phone Radha Jamison DO Primary Care Provider Nelia Sullivan PharmD Unavailable [phone] Dalila Carson RN Unavailable [phone] Ekta Reynolds Unavailable [facility] Status:Outreach In Progress (Enrolling) Start date:12/31/2024 Enrollment reason:Referred by provider Overview Home Health Utilization- Please coordinate with Dalila for connection of services with [facility] for senior living reduction. Please outreach for enrollment. Case Team Name Relationship Phone Ekta Reynolds(Responsible Staff) [phone] Continued Care and Services Coordination
--- OUTSIDE RECORDS SUMMARY | 2025-03-06 09:49 | XMS_ITS | Encounter Summary ---
Author Organization [employer] Address [address] [facility] 7t [place] [address] Care Team Providers Care Accounting Tutor Name Role Phone Radha Jamison DO Primary Care Provider Nelia Sullivan PharmD Unavailable [phone] Letty Rinaldi Unavailable Dalila Carson RN Unavailable [phone] Ekta Reynolds Unavailable Reason for Visit * Reason Comments Med Refill Encounter Details Date Type Department Care Team (Late st Contact Info) Description 05/17/2024 Refill [facility] MEDICINE [address] [place], [place] [phone] Radha Jamison DO [address] [place], [place] [phone] Chronic bilateral low back pain, unspecified whether [...] Description 03/07/2025 11:00 AM EST Office Visit [facility] CHC ADULT DENTAL [address] [place] [address] Umang Hampton 03/13/2025 9:30 AM EST Office Visit [facility] OPTOMETRY [address] [place] [address] Radha Taylor, OD [address] [place] [address] 03/17/2025 11:30 AM EST Medication Management [facility] MEDICINE [address] [place] [address] Nelia Sullivan, PharmD [address] [place] [address] documented as of this encounter Goals Goal [...] as of this encounter Care Teams Accounting Tutor Relationship Specialty Start Date End Date Radha Jamison DO [address] [place] [address] PCP - General Family Medicine 01/26/12 Nelia Sullivan, PharmD [address] [place] [address] Pharmacist Internal Medicine 08/31/23 Letty Rinaldi 12/16/24 12/18/24 Dalila Carson, JOANN [address] [place] [address] Registered Nurse Family Medicine 12/31/24 Ekta Reynolds 12/31/24 Laurel Monterroso Granite PolisherOperations Technician 02/20/25 Saige Aguilar 09/26/23 documented as of this encounter
--- OUTSIDE RECORDS SUMMARY | 2025-03-06 09:49 | XMS_ITS | Encounter Summary ---
Author Organization [employer] Address [address] [facility] 7t [place] [address] Care Team Providers Care Manager Activities Name Role Phone Radha Jamison DO Primary Care Provider [phone] Abdias Murillo PharmD Unavailable Unavail able Nelia Sullivan PharmD Unavailable Letty Rinaldi Unavailable Dalila Carson RN Unavailable [phone] Ekta Reynolds Unavailable Encounter Details Date Type Department Care Team (Late st Contact Info) Description 06/15/2023 Orders Only [facility] MEDICINE [address] [place], [place] [phone] Radha Jamison DO [address] [place], [place] [phone] Stenosis of right carotid artery Social History [...] Description 03/07/2025 11:00 AM EST Office Visit [facility] CHC ADULT DENTAL [address] [place] [address] Umang Hampton 03/13/2025 9:30 AM EST Office Visit [facility] OPTOMETRY [address] [place] [address] TarRadah bang, OD [address] [place] [address] 03/17/2025 11:30 AM EST Medication Management [facility] MEDICINE [address] [place] [address] Nelia Sullivan PharmD [address] [place] [address] documented as of this encounter Goals Goal [...] as of this encounter Care Teams Manager Activities Relationship Specialty Start Date End Date Radha Jamison DO [address] [place] [address] PCP - General Family Medicine 01/26/12 Abdias Murillo, KeithD [address] [place] [address] Pharmacist Internal Medicine 03/21/22 08/30/23 Nelia Sullivan PharmD [address] [place] [address] Pharmacist Internal Medicine 08/31/23 Letty Rinaldi 12/16/24 12/18/24 Dalila Carson, RN [address] [place] [address] Registered Nurse Family Medicine 12/31/24 Ekta Reynolds 12/31/24 Laurel Monterroso Set Up Mechanic Coating MachinesSupervisor Wheel Shop 02/20/25 Saige Aguilar 09/26/23 documented as of this encounter
--- OUTSIDE RECORDS SUMMARY | 2025-03-06 09:49 | XMS_ITS | Encounter Summary ---
Author Organization [employer] Address [address] [facility] 7t [place] [address] Care Team Providers Care Child Welfare Manager Name Role Phone Radha Jamison DO Primary Care Provider Abdias Murillo PharmD Unavailable Unavail able Nelia Sullivan PharmD Unavailable [phone] Letty Rinaldi Unavailable Dalila Carson RN Unavailable [phone] Ekta Reynolds Unavailable Reason for Visit * Reason Comments Med Refill Encounter Details Date Type Department Care Team (Late st Contact Info) Description 06/06/2023 Refill [facility] [address] [place], [place] [phone] Radha Jamison DO [address] [place] [address] Chronic bilateral low back pain, unspecified whether [...] 03/07/2025 11:00 AM EST Office Visit [facility] CHC ADULT DENTAL [address] [place] [address] Umang Hampton 03/13/2025 9:30 AM EST Office Visit [facility] OPTOMETRY [address] [place] [address] TarkaRadha, OD [address] [place] [address] 03/17/2025 11:30 AM EST Medication Management [facility] MEDICINE [address] [place] [address] Nelia Sullivan PharmD [address] [place] [address] documented as of this encounter Goals Goal [...] as of this encounter Care Teams Child Welfare Manager Relationship Specialty Start Date End Date Radha Jamison DO [address] [place] [address] PCP - General Family Medicine 01/26/12 Abdias Murillo, PharmD [address] [place] [address] Pharmacist Internal Medicine 03/21/22 08/30/23 Nelia Sullivan, KeithD [address] [place] [address] Pharmacist Internal Medicine 08/31/23 Letty Rinaldi 12/16/24 12/18/24 Dalila Carson, JOANN [address] [place] [address] Registered Nurse Family Medicine 12/31/24 Ekta Reynolds 12/31/24 Laurel Monterroso Shellfish GrowerC Software Engineer 02/20/25 Saige Aguilar 09/26/23 documented as of this encounter
--- OUTSIDE RECORDS SUMMARY | 2025-03-06 09:49 | XMS_ITS | Encounter Summary ---
Author Organization [employer] Address [address] [facility] 7t [place] [address] Care Team Providers Care Product Planner Name Role Phone Radha Jamison DO Primary Care Provider eNlia Sullivan PharmD Unavailable Letty Rinaldi Unavailable Dalila Carson RN Unavailable [phone] Ekta Reynolds Unavailable Reason for Visit * Reason Comments Med Refill Encounter Details Date Type Department Care Team (Late st Contact Info) Description 01/06/2024 Refill [facility] MEDICINE [address] [place], [place] [phone] Radha Jamison DO [address] [place], [place] [phone] Depression, unspecified depression type; Essential (primary) hypertension [...] Description 03/07/2025 11:00 AM EST Office Visit [facility] CHC ADULT DENTAL [address] [place] [address] Umang Hampton 03/13/2025 9:30 AM EST Office Visit [facility] OPTOMETRY [address] [place] [address] Radha Taylor, OD [address] [place] [address] 03/17/2025 11:30 AM EST Medication Management [facility] MEDICINE [address] [place] [address] Nelia Sullivan, PharmD [address] [place] [address] documented as of this encounter Goals Goal [...] documented as of this encounter Care Teams Product Planner Relationship Specialty Start Date End Date Radha Jamison DO [address] [place] [address] PCP - General Family Medicine 01/26/12 Nelia Sullivan, PharmD [address] [place] [address] Pharmacist Internal Medicine 08/31/23 Letty Rinaldi 12/16/24 12/18/24 Dalila Carson, JOANN [address] [place] [address] Registered Nurse Family Medicine 12/31/24 Ekta Reynolds 12/31/24 Laurel Monterroso Fabrication ManagerSewing Department Supervisor 02/20/25 Saige [facility] 09/26/23 documented as of this encounter
--- OUTSIDE RECORDS SUMMARY | 2025-03-06 09:50 | XMS_ITS | Encounter Summary ---
Author Organization [employer] Address [address] [facility] [address] [place] [address] Care Team Providers Care Cultural Historian Name Role Phone Radha Jamison DO Primary Care Provider Abdias Murillo PharmD Unavailable Unavail able Nelia Sullivan PharmD Unavailable [phone] Letty Rinaldi Unavailable Dalila Carson RN Unavailable [phone] Ekta Reynolds Unavailable Encounter Details Date Type Department Care Team (Late Contact Info) Description 02/03/2022 Orders Only [facility] MEDICINE [address] [place], [place] [phone] Radha Jamison DO [address] [place], [place] [phone] Social History Tobacco Use Types Packs/Day Years [...] Department Care Team (Late Contact Info) Description 03/07/2025 11:00 AM EST Office Visit [facility] ADULT DENTAL [address] [place] [address] ShubhamleticiaJayden coelhoUmang 03/13/2025 9:30 AM EST Office Visit [facility] OPTOMETRY [address] [place] [address] Radha Taylor, OD [address] [place] [address] 03/17/2025 11:30 AM EST Medication Management [facility] MED[facility]INE [address] [place] [address] PuiaNelia, PharmD [address] [place] [address] documented as of this encounter Procedures Procedure [...] 3:14 PM EST HEPATIC FUNCTION PANEL Routine 3 3:14 PM EST BASIC METABOLIC PANEL Routine 02/22/2022 3:14 PM EST CULTURE, URINE, ROUTINE Routine 02/22/2022 12:00 AM EST documented in this encounter Results * (ABNORMAL) Sed Rate by Modified Westergren (04/24/2022 4:19 PM EDT) Erythrocyte Sedimentation Rate 23(H) 0 - 20 MM/HR [facility] Comment:Patients with polycy themia and many hemoglobin abnormalitiesmay have depressed sed rates whereas patients with anemiamay have elevated sed rates. 04/24/2022 4:19 PM EDT 04/24/2022 4:27 PM EDT [facility] External Provider LAB BLO OD ORDERABLES Final Result Performing Organization Address [facility] Co de Phone Number [facility] [address] [place] [phone] * C-reactive Protein (04/24/2022 4:19 PM EDT) Pathologist [facility] C Reactive Protein 0.28 < or = 0.50 mg/dL [facility] 04/24/2022 4:19 PM EDT 04/24/2022 4:22 PM EDT [facility] External Provider LAB BLO OD ORDERABLES Final Result Performing Organization Address [facility] Co de Phone Number [facility] [address] [place] [phone] * Magnesium (04/24/2022 4:19 PM EDT) Pathologist [facility] Magnesium 1.7 1.6 - 2.6 mg/dL [facility] 04/24/2022 4:19 PM EDT 04/24/2022 4:22 PM EDT [facility] External Provider LAB BLO OD ORDERABLES Final Result Performing Organization Address [facility] de Phone Number [facility] [address] [place] [phone] * (ABNORMAL) Basic Metabolic Panel (04/24/2022 4:19 PM EDT) Sodium 135 135 - 145 mmol/L [facility] Potassium 4.7 3.3 - 5.1 mmol/L [facility] Chloride 100 96 - 108 mmol/L [facility] Carbon Dioxide 27 22 - 29 mmol/L [facility] Anion Gap 13 12 - 20 [facility] Urea Nitrogen (BUN) 20(H) 9 - 16 mg/dL [facility] Creatinine, Serum 1.01 0.5 - 1.4 mg/dL [facility] Creatinine Clr Calc Pharmacy 48.8 [facility] Comment:Provided height and weight: 152.4 cm,62.4 kg.eGFR (calculated from the MDRD study equation) and eCrCl(calculated from the Cockcroft-Gault equation) are based ondifferent parameters and may not yield comparable results.If eCrCl result is absurd, please check patient'sheight/weight. Estimated Glomerular Filt Rate 56 [facility] Comment:NOTE: For -Am erican individuals, multiply the result by 1.210.Chronic Kidney Disease: Estimated GFR < 60 mL/min/1.84m3Sihqpd Kidney Disease: Estimated GFR < 15 mL/min/1.73m2 Glucose 269(H) 60 - 115 mg/dL [facility] Calcium 9.2 8.4 - 10.2 mg/dL [facility] 04/24/2022 4:19 PM EDT 04/24/2022 4:22 PM EDT [facility] External Provider LAB BLO OD ORDERABLES Final Result [facility] [address] [place] [phone] * Hepatic Function Panel (04/24/2022 4:19 PM EDT) Bilirubin, Total 0.6 0.0 - 1.0 mg/dL [facility] Bilirubin, Direct <0.2 0.0 - 0.5 mg/dL [facility] Aspartate Amino Transferase 11 5 - 31 U/L [facility] Alanine Aminotransferase 6 0 - 31 U/L [facility] Total Protein 6.5 6.5 - 8.0 g/dL [facility] Albumin Level 4.0 3.5 - 5.0 g/dL [facility] Alkaline Phosphatase 80 39 - 117 U/L [facility] 04/24/2022 4:19 PM EDT 04/24/2022 4:22 PM EDT [facility] External Provider LAB BLO OD ORDERABLES Final Result [facility] [address] [place] [phone] * (ABNORMAL) CBC auto differential (04/24/2022 4:19 PM EDT) White Blood Count 7.3 4.8 - 10.8 X10*3/uL [facility] Red Blood Count 4.14(L) 4.20 - 5.50 X10*6/uL [facility] Hemoglobin 12.1 12.0 - 16.0 g/dl [facility] Hematocrit 36.6(L) 37.0 - 47.0 % [facility] Mean Corpuscular Volume 88.4 80.0 - 98.0 fL [facility] Mean Corpuscular Hemoglobin 29.2 27.0 - 33.0 pg [facility] Mean Corpuscular HGB Conc 33.1 31.0 - 35.0 g/dl [facility] Red Cell Distribution Width 13.4 11.0 - 16.0 % [facility] Platelet Count 333 160 - 400 X10*3/uL [facility] Mean Platelet Volume 8.9(L) 9.4 - 12.3 fL [facility] Neutrophils Percent Auto 62.4 45 - 73 % [facility] Imm Gran Pct Auto 0.3 0.0 - 0.4 % [facility] Lymphocytes Percent Auto 28.8 20 - 40 % [facility] Monocytes Percent Auto 5.3 2 - 11 % [facility] Eosinophils Percent Auto 2.7 0 - 4 % [facility] Basophils Percent Auto 0.5 0 - 2 % [facility] NRBC Pct Auto 0.0 0.0 - 0.2 /100WBC [facility] Neutrophils Absolute Auto 4.6 2.0 - 8.3 x10*3/uL [facility] Imm Gran Abs Auto 0.02 0.00 - 0.03 X10*3/uL [facility] Lymphocytes Absolute Auto 2.1 1.2 - 4.9 X10*3/uL [facility] Monocytes Absolute Auto 0.4 0.1 - 1.2 X10*3/uL [facility] Eosinophils Absolute Auto 0.2 0.0 - 0.4 X10*3/uL [facility] Basophils Absolute Auto 0.0 0.0 - 0.2 X10*3/uL [facility] NRBC Abs Auto 0.000 0.0 - 0.012 X10*3/uL [facility] 04/24/2022 4:19 PM EDT 04/24/2022 4:22 PM EDT [facility] External Provider LAB BLO OD ORDERABLES Final Result [facility] [address] [place] [phone] * (ABNORMAL) Urinalysis, Complete, with Reflex to Culture (04/17/2022 10:53 AM EST) Color Urine Yellow [facility] Appearance Urine Clear [facility] PH 7.5 5.0 - 9.0 [facility] Glucose Urine UA 100(A) Negative mg/dL [facility] Urine Blood Negative Negative [facility] Specific [place] - Urine >=1.030(H) 1.005 - 1.025 [facility] Urine Protein 100 (2+)(A) Neg-Trace mg/dL [facility] Urine Ketones Negative Negative mg/dL [facility] Nitrite Urine Negative Negative [facility] Leukocyte Esterase Urine Negative Negative [facility] RBC Urine 3-5(A) 0 - 2 /HPF [facility] Urine WBC 0-5 0 - 5 /HPF [facility] Urine Squamous Epithelial Cell 3-5 0 - 2 /HPF [facility] Urine Bacteria None Seen None Seen [facility] Hyaline Casts, Urine 0-2 0 - 2 /LPF [facility] 04/17/2022 10:5 3 AM EST 04/17/2022 10:56 AM EST Narrative [facility] - 04/17/2022 11:06 AM EST Urine, Clean Catch [facility] External Provider LAB URI NE ORDERABLES Final Result Performing Organization Address [facility] Co de Phone Number [facility] [address] [place] [phone] * (ABNORMAL) Sed Rate by Modified Eh (04/17/2022 8:21 AM EST) Erythrocyte Sedimentation Rate 23(H) 0 - 20 MM/HR [facility] Comment:Patients with polycy themia and many hemoglobin abnormalitiesmay have depressed sed rates whereas patients with anemiamay have elevated sed rates. 04/17/2022 8:21 AM EST 04/17/2022 8:41 AM EST [facility] External Provider LAB BLO OD ORDERABLES Final Result Performing Organization Address City/[facility] Co de Phone Number [facility] [address] [place] [phone] * Lipase (04/17/2022 8:21 AM EST) Lipase 10 8 - 78 U/L [facility] 04/17/2022 8:21 AM EST 04/17/2022 8:24 AM EST [facility] External Provider LAB BLO OD ORDERABLES Final Result Performing Organization Address City/[facility] Co de Phone Number [facility] [address] [place] [phone] * C-reactive Protein (04/17/2022 8:21 AM EST) Pathologist [facility] C Reactive Protein 0.23 < or = 0.50 mg/dL [facility] 04/17/2022 8:21 AM EST 04/17/2022 8:24 AM EST [facility] External Provider LAB BLO OD ORDERABLES Final Result Performing Organization Address [facility]/ZIP Co de Phone Number [facility] [address] [place] [phone] * Magnesium (04/17/2022 8:21 AM EST) Pathologist [facility] Magnesium 1.6 1.6 - 2.6 mg/dL [facility] 04/17/2022 8:21 AM EST 04/17/2022 8:24 AM EST [facility] External Provider LAB BLO OD ORDERABLES Final Result Performing Organization Address City/[facility] Co de Phone Number [facility] [address] [place] [phone] * (ABNORMAL) Hepatic Function Panel (04/17/2022 8:21 AM EST) Pathologist [facility] Bilirubin, Total 0.7 0.0 - 1.0 mg/dL [facility] Bilirubin, Direct <0.2 0.0 - 0.5 mg/dL [facility] Aspartate Amino Transferase 10 5 - 31 U/L [facility] Alanine Aminotransferase 7 0 - 31 U/L [facility] Total Protein 6.2(L) 6.5 - 8.0 g/dL [facility] Albumin Level 3.8 3.5 - 5.0 g/dL [facility] Alkaline Phosphatase 71 39 - 117 U/L [facility] 04/17/2022 8:21 AM EST 04/17/2022 8:24 AM EST [facility] External Provider LAB BLO OD ORDERABLES Final Result Performing Organization Address City/[facility]/ZIP Co de Phone Number [facility] [address] [place] [address] [phone] * (ABNORMAL) Basic Metabolic Panel (04/17/2022 8:21 AM EST) Sodium 138 135 - 145 mmol/L [facility] Potassium 4.9 3.3 - 5.1 mmol/L [facility] Chloride 104 96 - 108 mmol/L [facility] Carbon Dioxide 26 22 - 29 mmol/L [facility] Anion Gap 13 12 - 20 [facility] Urea Nitrogen (BUN) 17(H) 9 - 16 mg/dL [facility] Creatinine, Serum 0.79 0.5 - 1.4 mg/dL [facility] Creatinine Clr Calc Pharmacy 66.3 [facility] Comment:Provided height and weight: 157.48 cm,63.503 kg.eGFR (calculated from the MDRD study equation) and eCrCl(calculated from the Cockcroft-Gault equation) are based ondifferent parameters and may not yield comparable results.If eCrCl result is absurd, please check patient'sheight/weight. Estimated Glomerular Filt Rate >60 [facility] Comment:NOTE: For -Am erican individuals, multiply the result by 1.210.Chronic Kidney Disease: Estimated GFR < 60 mL/min/1.53r7Ofgrle Kidney Disease: Estimated GFR < 15 mL/min/1.73m2 Glucose 272(H) 60 - 115 mg/dL [facility] Calcium 9.1 8.4 - 10.2 mg/dL [facility] 04/17/2022 8:21 AM EST 04/17/2022 8:24 AM EST [facility] External Provider LAB BLO OD ORDERABLES Final Result [facility] [address] [place] [address] [phone] * (ABNORMAL) CBC auto differential (04/17/2022 8:21 AM EST) White Blood Count 5.7 4.8 - 10.8 X10*3/uL [facility] Red Blood Count 4.01(L) 4.20 - 5.50 X10*6/uL [facility] Hemoglobin 11.7(L) 12.0 - 16.0 g/dl [facility] Hematocrit 35.9(L) 37.0 - 47.0 % [facility] Mean Corpuscular Volume 89.5 80.0 - 98.0 fL [facility] Mean Corpuscular Hemoglobin 29.2 27.0 - 33.0 pg [facility] Mean Corpuscular HGB Conc 32.6 31.0 - 35.0 g/dl [facility] Red Cell Distribution Width 13.4 11.0 - 16.0 % [facility] Platelet Count 309 160 - 400 X10*3/uL [facility] Mean Platelet Volume 9.3(L) 9.4 - 12.3 fL [facility] Neutrophils Percent Auto 60.9 45 - 73 % [facility] Imm Gran Pct Auto 0.4 0.0 - 0.4 % [facility] Lymphocytes Percent Auto 27.3 20 - 40 % [facility] Monocytes Percent Auto 6.3 2 - 11 % [facility] Eosinophils Percent Auto 4.4(H) 0 - 4 % [facility] Basophils Percent Auto 0.7 0 - 2 % [facility] NRBC Pct Auto 0.0 0.0 - 0.2 /100WBC [facility] Neutrophils Absolute Auto 3.5 2.0 - 8.3 x10*3/uL [facility] Imm Gran Abs Auto 0.02 0.00 - 0.03 X10*3/uL [facility] Lymphocytes Absolute Auto 1.6 1.2 - 4.9 X10*3/uL [facility] Monocytes Absolute Auto 0.4 0.1 - 1.2 X10*3/uL [facility] Eosinophils Absolute Auto 0.3 0.0 - 0.4 X10*3/uL [facility] Basophils Absolute Auto 0.0 0.0 - 0.2 X10*3/uL [facility] NRBC Abs Auto 0.000 0.0 - 0.012 X10*3/uL [facility] 04/17/2022 8:21 AM EST 04/17/2022 8:24 AM EST [facility] External Provider LAB BLO OD ORDERABLES Final Result Performing Organization Address [facility]/ZIP Co de Phone Number [facility] [address] [place] [phone] * Creatinine, Serum (04/13/2022 7:33 AM EST) Creatinine, Serum 0.75 0.5 - 1.4 mg/dL [facility] Creatinine Clr Calc Pharmacy 70.3 [facility] Comment:Provided height and weight: 157.48 cm,64.41 kg.eGFR (calculated from the MDRD study equation) and eCrCl(calculated from the Cockcroft-Gault equation) are based ondifferent parameters and may not yield comparable results.If eCrCl result is absurd, please check patient'sheight/weight. Estimated Glomerular Filt Rate >60 [facility] Comment:NOTE: For -Am erican individuals, multiply the result by 1.210.Chronic Kidney Disease: Estimated GFR < 60 mL/min/1.82p9Mhlikh Kidney Disease: Estimated GFR < 15 mL/min/1.73m2 04/13/2022 7:33 AM EST 04/13/2022 7:38 AM EST [facility] External Provider LAB BLO OD ORDERABLES Final Result Performing Organization Address [facility]/ZIP Co de Phone Number [facility] [address] [place] [phone] * BUN (Blood Urea Nitrogen) (04/13/2022 7:33 AM EST) Urea Nitrogen (BUN) 12 9 - 16 mg/dL [facility] 04/13/2022 7:33 AM EST 04/13/2022 7:38 AM EST [facility] External Provider LAB BLO OD ORDERABLES Final Result Performing Organization Address City/State/[facility] Co de Phone Number [facility] [address] [place] [address] [phone] * (ABNORMAL) CBC auto differential (04/13/2022 7:33 AM EST) White Blood Count 6.6 4.8 - 10.8 X10*3/uL [facility] Red Blood Count 4.12(L) 4.20 - 5.50 X10*6/uL [facility] Hemoglobin 12.1 12.0 - 16.0 g/dl [facility] Hematocrit 36.6(L) 37.0 - 47.0 % [facility] Mean Corpuscular Volume 88.8 80.0 - 98.0 fL [facility] Mean Corpuscular Hemoglobin 29.4 27.0 - 33.0 pg [facility] Mean Corpuscular HGB Conc 33.1 31.0 - 35.0 g/dl [facility] Red Cell Distribution Width 13.6 11.0 - 16.0 % [facility] Platelet Count 291 160 - 400 X10*3/uL [facility] Mean Platelet Volume 9.0(L) 9.4 - 12.3 fL [facility] Neutrophils Percent Auto 55.5 45 - 73 % [facility] Imm Gran Pct Auto 0.2 0.0 - 0.4 % [facility] Lymphocytes Percent Auto 33.7 20 - 40 % [facility] Monocytes Percent Auto 6.5 2 - 11 % [facility] Eosinophils Percent Auto 3.6 0 - 4 % [facility] Basophils Percent Auto 0.5 0 - 2 % [facility] NRBC Pct Auto 0.0 0.0 - 0.2 /100WBC [facility] Neutrophils Absolute Auto 3.7 2.0 - 8.3 x10*3/uL [facility] Imm Gran Abs Auto 0.01 0.00 - 0.03 X10*3/uL [facility] Lymphocytes Absolute Auto 2.2 1.2 - 4.9 X10*3/uL [facility] Monocytes Absolute Auto 0.4 0.1 - 1.2 X10*3/uL [facility] Eosinophils Absolute Auto 0.2 0.0 - 0.4 X10*3/uL [facility] Basophils Absolute Auto 0.0 0.0 - 0.2 X10*3/uL [facility] NRBC Abs Auto 0.000 0.0 - 0.012 X10*3/uL [facility] 04/13/2022 7:33 AM EST 04/13/2022 7:38 AM EST [facility] External Provider LAB BLO OD ORDERABLES Final Result Performing Organization Address City/[facility]/ZIP Co de Phone Number [facility] [address] [place] [phone] * (ABNORMAL) GLUCOSE, WHOLE BLOOD (04/13/2022 7:27 AM EST) Glucose, Whole Blood 197(H) 60 - 115 mg/dL [facility] Comment:METER #: [id number] 04/13/2022 7:27 AM EST 04/13/2022 7:31 AM EST [facility] External Provider LAB BLO OD ORDERABLES Final Result Performing Organization Address City/[facility]/ZIP Co de Phone Number [facility] [address] [place] [phone] * HIGH SENSITIVITY TROPONIN I (04/03/2022 8:36 PM EST) [facility] TROPONIN I HIGH SENSITIVITY 6.0 <3.5 - 17.0 ng/L [facility] Comment:The Ibrahim high sens itivity Troponin-I results should beused in conjunction with other diagnostic information suchas ECG, clinical observations and information, and patientsymptoms to aid in the diagnosis of [place]. 04/03/2022 8:36 PM EST 04/03/2022 8:38 PM EST [facility] External Provider LAB BLO OD ORDERABLES Final Result Performing Organization Address City/[facility]/ZIP Co de Phone Number [facility] [address] [place] [phone] * Lipase (04/03/2022 8:36 PM EST) [facility] Lipase 10 8 - 78 U/L [facility] 04/03/2022 8:36 PM EST 04/03/2022 8:38 PM EST [facility] External Provider LAB BLO OD ORDERABLES Final Result Performing Organization Address City/[facility]/ZIP Co de Phone Number [facility] [address] [place] [address] [phone] * (ABNORMAL) Basic Metabolic Panel (04/03/2022 8:36 PM EST) [facility] Sodium 138 135 - 145 mmol/L [facility] Potassium 3.9 3.3 - 5.1 mmol/L [facility] Chloride 104 96 - 108 mmol/L [facility] Carbon Dioxide 27 22 - 29 mmol/L [facility] Anion Gap 11(L) 12 - 20 [facility] Urea Nitrogen (BUN) 11 9 - 16 mg/dL [facility] Creatinine, Serum 0.74 0.5 - 1.4 mg/dL [facility] Creatinine Clr Calc Pharmacy 70.7 [facility] Comment:Provided height and weight: 157.48 cm,63.503 kg.eGFR (calculated from the MDRD study equation) and eCrCl(calculated from the Cockcroft-Gault equation) are based ondifferent parameters and may not yield comparable results.If eCrCl result is absurd, please check patient'sheight/weight. Estimated Glomerular Filt Rate >60 [facility] Comment:NOTE: For -Am erican individuals, multiply the result by 1.210.Chronic Kidney Disease: Estimated GFR < 60 mL/min/1.83k9Suswpx Kidney Disease: Estimated GFR < 15 mL/min/1.73m2 Glucose 246(H) 60 - 115 mg/dL [facility] Calcium 9.0 8.4 - 10.2 mg/dL [facility] 04/03/2022 8:36 PM EST 04/03/2022 8:38 PM EST [facility] External Provider LAB BLO OD ORDERABLES Final Result Performing Organization Address [facility] Co de Phone Number [facility] [address] [place] [address] [phone] * (ABNORMAL) Hepatic Function Panel (04/03/2022 8:36 PM EST) Bilirubin, Total 0.6 0.0 - 1.0 mg/dL [facility] Bilirubin, Direct 0.2 0.0 - 0.5 mg/dL [facility] Aspartate Amino Transferase 10 5 - 31 U/L [facility] Alanine Aminotransferase 8 0 - 31 U/L [facility] Total Protein 5.8(L) 6.5 - 8.0 g/dL [facility] Albumin Level 3.7 3.5 - 5.0 g/dL [facility] Alkaline Phosphatase 76 39 - 117 U/L [facility] 04/03/2022 8:36 PM EST 04/03/2022 8:38 PM EST [facility] External Provider LAB BLO OD ORDERABLES Final Result Performing Organization Address [facility]/ZIP Co de Phone Number [facility] [address] [place] [phone] [phone] * (ABNORMAL) CBC auto differential (04/03/2022 8:36 PM EST) White Blood Count 6.0 4.8 - 10.8 X10*3/uL [facility] Red Blood Count 4.10(L) 4.20 - 5.50 X10*6/uL [facility] Hemoglobin 12.0 12.0 - 16.0 g/dl [facility] Hematocrit 35.6(L) 37.0 - 47.0 % [facility] Mean Corpuscular Volume 86.8 80.0 - 98.0 fL [facility] Mean Corpuscular Hemoglobin 29.3 27.0 - 33.0 pg [facility] Mean Corpuscular HGB Conc 33.7 31.0 - 35.0 g/dl [facility] Red Cell Distribution Width 13.3 11.0 - 16.0 % [facility] Platelet Count 276 160 - 400 X10*3/uL [facility] Mean Platelet Volume 9.2(L) 9.4 - 12.3 fL [facility] Neutrophils Percent Auto 58.2 45 - 73 % [facility] Imm Gran Pct Auto 0.2 0.0 - 0.4 % [facility] Lymphocytes Percent Auto 32.9 20 - 40 % [facility] Monocytes Percent Auto 6.0 2 - 11 % [facility] Eosinophils Percent Auto 2.2 0 - 4 % [facility] Basophils Percent Auto 0.5 0 - 2 % [facility] NRBC Pct Auto 0.0 0.0 - 0.2 /100WBC [facility] Neutrophils Absolute Auto 3.5 2.0 - 8.3 x10*3/uL [facility] Imm Gran Abs Auto 0.01 0.00 - 0.03 X10*3/uL [facility] Lymphocytes Absolute Auto 2.0 1.2 - 4.9 X10*3/uL [facility] Monocytes Absolute Auto 0.4 0.1 - 1.2 X10*3/uL [facility] Eosinophils Absolute Auto 0.1 0.0 - 0.4 X10*3/uL [facility] Basophils Absolute Auto 0.0 0.0 - 0.2 X10*3/uL [facility] NRBC Abs Auto 0.000 0.0 - 0.012 X10*3/uL [facility] 04/03/2022 8:36 PM EST 04/03/2022 8:38 PM EST [facility] External Provider LAB BLO OD ORDERABLES Final Result Performing Organization Address [facility]/ZIP Co de Phone Number [facility] [address] [place] [address] [phone] * (ABNORMAL) GLUCOSE, WHOLE BLOOD (04/03/2022 7:56 PM EST) Glucose, Whole Blood 227(H) 60 - 115 mg/dL [facility] Comment:METER #: [id number] 04/03/2022 7:56 PM EST 04/03/2022 8:01 PM EST Result [facility] External Provider LAB BLO OD ORDERABLES Final Result Performing Organization Address [facility] Co de Phone Number [facility] [address] [place] [phone] * (ABNORMAL) B Type Natriuretic Peptide (BNP) (03/09/2022 5:39 PM EST) B Type Natriuretic Peptide 125(H) <100 pg/mL [facility] Comment:For those patients w ho are being treated with Natrecor(nesiritide, recombinant BNP), BNP testing should beperformed at least two hours post treatment in order toensure that only endogenous levels of BNP are detected. 03/09/2022 5:39 PM EST 03/09/2022 6:48 PM EST [facility] External Provider LAB BLO OD ORDERABLES Final Result Performing Organization Address [facility] Co de Phone Number [facility] [address] [place] [phone] * SARS-CoV-2 RNA, Influenza A/B, and RSV RNA, Ql NAAT (03/09/2022 5:39 PM EST) Pathologist [facility] Influenza A PCR NEGATIVE Negative [facility] Influenza B PCR NEGATIVE Negative [facility] Resp Syncy Virus RNA Qual PCR NEGATIVE Negative [facility] SARS COV2 PCR NEGATIVE Negative [facility] SARS/Flu/RSV Note See Note [facility] Comment:All test results mus [...] use by authorized laboratories.Testing performed on the [employer] GeneXpert utilizingreal-time RT-PCR.All SARS CoV2 and positive influenza A/B results arereported to [facility]. 03/09/2022 5:39 PM EST 03/09/2022 5:43 PM EST [facility] Exter nal Provider LAB MICROBIOLOGY - GENERAL ORDERABLES Final Result Performing Organization Address [facility]/ZIP Co de Phone Number [facility] [address] [place] [phone] * HIGH SENSITIVITY TROPONIN I (03/09/2022 5:39 PM EST) Pathologist [facility] TROPONIN I HIGH SENSITIVITY 5.6 <3.5 - 17.0 ng/L [facility] Comment:The Ibrahim high sens itivity Troponin-I results should beused in conjunction with other diagnostic information suchas ECG, clinical observations and information, and patientsymptoms to aid in the diagnosis of [place]. 03/09/2022 5:39 PM EST 03/09/2022 5:43 PM EST [facility] External Provider LAB BLO OD ORDERABLES Final Result [facility] [address] [place] [address] [phone] * (ABNORMAL) Comprehensive Metabolic Panel (03/09/2022 5:39 PM EST) Sodium 139 135 - 145 mmol/L [facility] Potassium 3.9 3.3 - 5.1 mmol/L [facility] Chloride 103 96 - 108 mmol/L [facility] Carbon Dioxide 27 22 - 29 mmol/L [facility] Anion Gap 13 12 - 20 [facility] Urea Nitrogen (BUN) 18(H) 9 - 16 mg/dL [facility] Creatinine, Serum 0.95 0.5 - 1.4 mg/dL [facility] Creatinine Clr Calc Pharmacy 53.0 [facility] Comment:Provided height and weight: 152.4 cm,65.2 kg.eGFR (calculated from the MDRD study equation) and eCrCl(calculated from the Cockcroft-Gault equation) are based ondifferent parameters and may not yield comparable results.If eCrCl result is absurd, please check patient'sheight/weight. Estimated Glomerular Filt Rate >60 [facility] Comment:NOTE: For -Am erican individuals, multiply the result by 1.210.Chronic Kidney Disease: Estimated GFR < 60 mL/min/1.08j2Wigpyx Kidney Disease: Estimated GFR < 15 mL/min/1.73m2 Glucose 326(H) 60 - 115 mg/dL [facility] Calcium 9.1 8.4 - 10.2 mg/dL [facility] Bilirubin, Total 0.3 0.0 - 1.0 mg/dL [facility] Aspartate Amino Transferase 8 5 - 31 U/L [facility] Alanine Aminotransferase <6 0 - 31 U/L [facility] Total Protein 5.9(L) 6.5 - 8.0 g/dL [facility] Albumin Level 3.6 3.5 - 5.0 g/dL [facility] Alkaline Phosphatase 81 39 - 117 U/L [facility] 03/09/2022 5:39 PM EST 03/09/2022 5:43 PM EST [facility] External Provider LAB BLO OD ORDERABLES Final Result [facility] [address] [place] [address] [phone] * (ABNORMAL) CBC auto differential (03/09/2022 5:39 PM EST) White Blood Count 7.3 4.8 - 10.8 X10*3/uL [facility] Red Blood Count 4.03(L) 4.20 - 5.50 X10*6/uL [facility] Hemoglobin 11.7(L) 12.0 - 16.0 g/dl [facility] Hematocrit 35.1(L) 37.0 - 47.0 % [facility] Mean Corpuscular Volume 87.1 80.0 - 98.0 fL [facility] Mean Corpuscular Hemoglobin 29.0 27.0 - 33.0 pg [facility] Mean Corpuscular HGB Conc 33.3 31.0 - 35.0 g/dl [facility] Red Cell Distribution Width 13.4 11.0 - 16.0 % [facility] Platelet Count 296 160 - 400 X10*3/uL [facility] Mean Platelet Volume 9.3(L) 9.4 - 12.3 fL [facility] Neutrophils Percent Auto 63.9 45 - 73 % [facility] Imm Gran Pct Auto 0.1 0.0 - 0.4 % [facility] Lymphocytes Percent Auto 27.1 20 - 40 % [facility] Monocytes Percent Auto 5.9 2 - 11 % [facility] Eosinophils Percent Auto 2.6 0 - 4 % [facility] Basophils Percent Auto 0.4 0 - 2 % [facility] NRBC Pct Auto 0.0 0.0 - 0.2 /100WBC [facility] Neutrophils Absolute Auto 4.6 2.0 - 8.3 x10*3/uL [facility] Imm Gran Abs Auto 0.01 0.00 - 0.03 X10*3/uL [facility] Lymphocytes Absolute Auto 2.0 1.2 - 4.9 X10*3/uL [facility] Monocytes Absolute Auto 0.4 0.1 - 1.2 X10*3/uL [facility] Eosinophils Absolute Auto 0.2 0.0 - 0.4 X10*3/uL [facility] Basophils Absolute Auto 0.0 0.0 - 0.2 X10*3/uL [facility] NRBC Abs Auto 0.000 0.0 - 0.012 X10*3/uL [facility] 03/09/2022 5:39 PM EST 03/09/2022 5:43 PM EST [facility] External Provider LAB BLO OD ORDERABLES Final Result Performing Organization Address City/State/[facility] Co de Phone Number [facility] [address] [place] [phone] * Prothrombin Time-INR (03/09/2022 5:39 PM EST) Prothrombin Time 10.9 10.0 - 13.1 SEC [facility] INTERNATIONAL NORM RATIO 1.0 0.9 - 1.1 [facility] Comment:INTERNATIONAL NORMAL IZED RATIO (INR) [...] 5:39 PM EST 03/09/2022 5:43 PM EST [facility] External Provider LAB BLO OD ORDERABLES Final Result Performing Organization Address [facility] de Phone Number [facility] [address] [place] [address] [phone] * GLUCOSE, WHOLE BLOOD (03/01/2022 12:41 AM EST) Glucose, Whole Blood 79 60 - 115 mg/dL [facility] Comment:METER #: [id number] 1 03/01/2022 12:4 1 AM EST 03/01/2022 12:46 AM EST [facility] External Provider LAB BLO OD ORDERABLES Final Result Performing Organization Address [facility] de Phone Number [facility] [address] [place] [address] [phone] * (ABNORMAL) GLUCOSE, WHOLE BLOOD (02/28/2022 10:39 PM EST) Glucose, Whole Blood 273(H) 60 - 115 mg/dL [facility] Comment:METER #: [id number] 1 02/28/2022 10:3 9 PM EST 02/28/2022 10:45 PM EST Result [facility] External Provider LAB BLO OD ORDERABLES Final Result Performing Organization Address [facility] de Phone Number [facility] [address] [place] [address] [phone] * (ABNORMAL) Comprehensive Metabolic Panel (02/28/2022 9:42 PM EST) Sodium 138 135 - 145 mmol/L [facility] Potassium 4.3 3.3 - 5.1 mmol/L [facility] Comment:Slight Hemolysis Chloride 106 96 - 108 mmol/L [facility] Carbon Dioxide 24 22 - 29 mmol/L [facility] Anion Gap 12 12 - 20 [facility] Urea Nitrogen (BUN) 14 9 - 16 mg/dL [facility] Creatinine, Serum 0.87 0.5 - 1.4 mg/dL [facility] Creatinine Clr Calc Pharmacy 57.2 [facility] Comment:Provided height and weight: 152.4 cm,63.503 kg.eGFR (calculated from the MDRD study equation) and eCrCl(calculated from the Cockcroft-Gault equation) are based ondifferent parameters and may not yield comparable results.If eCrCl result is absurd, please check patient'sheight/weight. Estimated Glomerular Filt Rate >60 [facility] Comment:NOTE: For -Am erican individuals, multiply the result by 1.210.Chronic Kidney Disease: Estimated GFR < 60 mL/min/1.31z7Uayvzd Kidney Disease: Estimated GFR < 15 mL/min/1.73m2 Glucose 378(HH) 60 - 115 mg/dL [facility] Comment:Critical value for t est(s): GLUR Results called to and readback by: EULA Person calling: VIDYATINS Date: 02/28/22Time: 2220 Calcium 9.3 8.4 - 10.2 mg/dL [facility] Bilirubin, Total 0.3 0.0 - 1.0 mg/dL [facility] Aspartate Amino Transferase 12 5 - 31 U/L [facility] Comment:Slight Hemolysis Alanine Aminotransferase 7 0 - 31 U/L [facility] Total Protein 6.7 6.5 - 8.0 g/dL [facility] Albumin Level 3.9 3.5 - 5.0 g/dL [facility] Alkaline Phosphatase 83 39 - 117 U/L [facility] 02/28/2022 9:42 PM EST 02/28/2022 9:48 PM EST [facility] External Provider LAB BLO OD ORDERABLES Final Result [facility] [address] [place] [address] [phone] * HIGH SENSITIVITY TROPONIN I (02/28/2022 9:42 PM EST) [facility] TROPONIN I HIGH SENSITIVITY 7.1 <3.5 - 17.0 ng/L [facility] Comment:The Ibrahim high sens itivity Troponin-I results should beused in conjunction with other diagnostic information suchas ECG, clinical observations and information, and patientsymptoms to aid in the diagnosis of [place]. 02/28/2022 9:42 PM EST 02/28/2022 9:48 PM EST [facility] External Provider LAB BLO OD ORDERABLES Final Result [facility] [address] [place] [phone] * (ABNORMAL) CBC (02/28/2022 9:42 PM EST) [facility] White Blood Count 7.0 4.8 - 10.8 X10*3/uL [facility] Red Blood Count 4.22 4.20 - 5.50 X10*6/uL [facility] Hemoglobin 12.1 12.0 - 16.0 g/dl [facility] Hematocrit 36.4(L) 37.0 - 47.0 % [facility] Mean Corpuscular Volume 86.3 80.0 - 98.0 fL [facility] Mean Corpuscular Hemoglobin 28.7 27.0 - 33.0 pg [facility] Mean Corpuscular HGB Conc 33.2 31.0 - 35.0 g/dl [facility] Red Cell Distribution Width 13.3 11.0 - 16.0 % [facility] Platelet Count 311 160 - 400 X10*3/uL [facility] Mean Platelet Volume 9.7 9.4 - 12.3 fL [facility] NRBC Pct Auto 0.0 0.0 - 0.2 /100WBC [facility] NRBC Abs Auto 0.000 0.0 - 0.012 X10*3/uL [facility] 02/28/2022 9:42 PM EST 02/28/2022 9:48 PM EST [facility] External Provider LAB BLO OD ORDERABLES Final Result Performing Organization Address [facility]/ZIP Co de Phone Number [facility] [address] [place] [phone] * (ABNORMAL) GLUCOSE, WHOLE BLOOD (02/28/2022 9:38 PM EST) Glucose, Whole Blood 379(HH) 60 - 115 mg/dL [facility] Comment:METER #: [id number] 1 02/28/2022 9:38 PM EST 02/28/2022 9:48 PM EST [facility] External Provider LAB BLO OD ORDERABLES Final Result Performing Organization Address [facility] Co de Phone Number [facility] [address] [place] [phone] * (ABNORMAL) Urinalysis, Complete, with Reflex to Culture (02/22/2022 3:20 PM EST) Color Urine Yellow [facility] Appearance Urine Cloudy [facility] PH 6.5 5.0 - 9.0 [facility] Glucose Urine UA >=1000(A) Negative mg/dL [facility] Urine Blood Negative Negative [facility] Specific [place] - Urine 1.020 1.005 - 1.025 [facility] Urine Protein 100 (2+)(A) Neg-Trace mg/dL [facility] Urine Ketones Negative Negative mg/dL [facility] Nitrite Urine Negative Negative [facility] Leukocyte Esterase Urine Small (1+)(A) Negative [facility] RBC Urine 3-5(A) 0 - 2 /HPF [facility] Urine WBC 0-5 0 - 5 /HPF [facility] Urine Squamous Epithelial Cell 0-2 0 - 2 /HPF [facility] Urine Bacteria None Seen None Seen [facility] Hyaline Casts, Urine 3-5 0 - 2 /LPF [facility] 02/22/2022 3:20 PM EST 02/22/2022 3:27 PM EST Narrative [facility] - 02/22/2022 4:14 PM EST [id number], Clean Catch [facility] External Provider LAB URI NE ORDERABLES Final Result [facility] [address] [place] [address] [phone] * SARS-CoV-2 RNA, Influenza A/B, and RSV RNA, Ql NAAT (02/22/2022 3:14 PM EST) Influenza A PCR NEGATIVE Negative [facility] Influenza B PCR NEGATIVE Negative [facility] Resp Syncy Virus RNA Qual PCR NEGATIVE Negative [facility] SARS COV2 PCR NEGATIVE Negative [facility] SARS/Flu/RSV Note See Note [facility] Comment:All test results mus [...] use by authorized laboratories.Testing performed on the [employer] GeneXpert utilizingreal-time RT-PCR.All SARS CoV2 and positive influenza A/B results arereported [facility]. 02/22/2022 3:14 PM EST 02/22/2022 3:19 PM EST [facility] Exter nal Provider LAB MICROBIOLOGY - GENERAL ORDERABLES Final Result Performing Organization Address [facility] de Phone Number [facility] [address] [place] [phone] * HIGH SENSITIVITY TROPONIN I (02/22/2022 3:14 PM EST) [facility] TROPONIN I HIGH SENSITIVITY 8.8 <3.5 - 17.0 ng/L [facility] Comment:The Ibrahim high sens itivity Troponin-I results should beused in conjunction with other diagnostic information suchas ECG, clinical observations and information, and patientsymptoms to aid in the diagnosis of [place]. 02/22/2022 3:14 PM EST 02/22/2022 3:19 PM EST [facility] External Provider LAB BLO OD ORDERABLES Final Result Performing Organization Address [facility] Phone Number [facility] [address] [place] [phone] * Magnesium (02/22/2022 3:14 PM EST) [facility] Magnesium 1.6 1.6 - 2.6 mg/dL [facility] 02/22/2022 3:14 PM EST 02/22/2022 3:19 PM EST [facility] External Provider LAB BLO OD ORDERABLES Final Result Performing Organization Address [facility] de Phone Number [facility] [address] [place] [phone] * (ABNORMAL) Basic Metabolic Panel (02/22/2022 3:14 PM EST) [facility] Sodium 136 135 - 145 mmol/L [facility] Potassium 4.4 3.3 - 5.1 mmol/L [facility] Chloride 103 96 - 108 mmol/L [facility] Carbon Dioxide 27 22 - 29 mmol/L [facility] Anion Gap 10(L) 12 - 20 [facility] Urea Nitrogen (BUN) 20(H) 9 - 16 mg/dL [facility] Creatinine, Serum 0.99 0.5 - 1.4 mg/dL [facility] Creatinine Clr Calc Pharmacy 50.6 [facility] Comment:Provided height and weight: 152.4 cm,64.5 kg.eGFR (calculated from the MDRD study equation) and eCrCl(calculated from the Cockcroft-Gault equation) are based ondifferent parameters and may not yield comparable results.If eCrCl result is absurd, please check patient'sheight/weight. Estimated Glomerular Filt Rate 57 [facility] Comment:NOTE: For -Am erican individuals, multiply the result by 1.210.Chronic Kidney Disease: Estimated GFR < 60 mL/min/1.58e2Tbrxzb Kidney Disease: Estimated GFR < 15 mL/min/1.73m2 Glucose 343(H) 60 - 115 mg/dL [facility] Calcium 9.3 8.4 - 10.2 mg/dL [facility] 02/22/2022 3:14 PM EST 02/22/2022 3:19 PM EST [facility] External Provider LAB BLO OD ORDERABLES Final Result [facility] [address] [place] [phone] * (ABNORMAL) Hepatic Function Panel (02/22/2022 3:14 PM EST) Bilirubin, Total 0.4 0.0 - 1.0 mg/dL [facility] Bilirubin, Direct <0.2 0.0 - 0.5 mg/dL [facility] Aspartate Amino Transferase 10 5 - 31 U/L [facility] Alanine Aminotransferase 6 0 - 31 U/L [facility] Total Protein 6.1(L) 6.5 - 8.0 g/dL [facility] Albumin Level 3.7 3.5 - 5.0 g/dL [facility] Alkaline Phosphatase 82 39 - 117 U/L [facility] 02/22/2022 3:14 PM EST 02/22/2022 3:19 PM EST [facility] External Provider LAB BLO OD ORDERABLES Final Result [facility] [address] [place] [address] [phone] * (ABNORMAL) CBC auto differential (02/22/2022 3:14 PM EST) White Blood Count 5.6 4.8 - 10.8 X10*3/uL [facility] Red Blood Count 3.99(L) 4.20 - 5.50 X10*6/uL [facility] Hemoglobin 11.8(L) 12.0 - 16.0 g/dl [facility] Hematocrit 35.1(L) 37.0 - 47.0 % [facility] Mean Corpuscular Volume 88.0 80.0 - 98.0 fL [facility] Mean Corpuscular Hemoglobin 29.6 27.0 - 33.0 pg [facility] Mean Corpuscular HGB Conc 33.6 31.0 - 35.0 g/dl [facility] Red Cell Distribution Width 13.2 11.0 - 16.0 % [facility] Platelet Count 265 160 - 400 X10*3/uL [facility] Mean Platelet Volume 10.0 9.4 - 12.3 fL [facility] Neutrophils Percent Auto 49.1 45 - 73 % [facility] Imm Gran Pct Auto 0.4 0.0 - 0.4 % [facility] Lymphocytes Percent Auto 40.1(H) 20 - 40 % [facility] Monocytes Percent Auto 6.1 2 - 11 % [facility] Eosinophils Percent Auto 3.4 0 - 4 % [facility] Basophils Percent Auto 0.9 0 - 2 % [facility] NRBC Pct Auto 0.0 0.0 - 0.2 /100WBC [facility] Neutrophils Absolute Auto 2.7 2.0 - 8.3 x10*3/uL [facility] Imm Gran Abs Auto 0.02 0.00 - 0.03 X10*3/uL [facility] Lymphocytes Absolute Auto 2.2 1.2 - 4.9 X10*3/uL [facility] Monocytes Absolute Auto 0.3 0.1 - 1.2 X10*3/uL [facility] Eosinophils Absolute Auto 0.2 0.0 - 0.4 X10*3/uL [facility] Basophils Absolute Auto 0.1 0.0 - 0.2 X10*3/uL [facility] NRBC Abs Auto 0.000 0.0 - 0.012 X10*3/uL [facility] 02/22/2022 3:14 PM EST 02/22/2022 3:19 PM EST [facility] External Provider LAB BLO OD ORDERABLES Final Result Performing Organization Address [facility]/ZIP Co de Phone Number [facility] [address] [place] [phone] * Culture, Urine, Routine (02/22/2022 12:00 AM EST) 02/22/2022 02/22/2022 5:2 3 PM EST Comment:UACC Narrative [facility] - 02/24/2022 11:31 AM EST Urine Culture Report Result Urine Culture 10,000 to 50,000 cfu/ml Urine Culture Mixed bacterial benton characteristic of Urine Culture urogenital contamination. Specimen Source: Urine clean catch [facility] Exter nal Provider LAB MICROBIOLOGY - GENERAL ORDERABLES Final Result Performing Organization Address [facility] Co de Phone Number [facility] [address] [place] [phone] documented in this encounter Visit Diagnoses Not on filedocumented in this encounter Care Teams Cultural Historian Relationship Specialty Start Date End Date Radha Jamison DO [address] [place] [phone] PCP - General Family Medicine 01/26/12 Abdias Murillo, PharmD [address] [place] [address] Pharmacist Internal Medicine 03/21/22 08/30/23 Nelia Sullivan, KeithD [address] [place], [place] [phone] Pharmacist Internal Medicine 08/31/23 Letty Rinaldi 12/16/24 12/18/24 Dalila Carson, JOANN [address] [place] [phone] Registered Nurse Family Medicine 12/31/24 Ekta Reynolds 12/31/24 Laurel Monterroso Pumper BreweryBilling Administrator 02/20/25 Saige Aguilar 09/26/23 documented as of this encounter
--- OUTSIDE RECORDS SUMMARY | 2025-03-06 09:50 | XMS_ITS | Encounter Summary ---
Author Organization [employer] Address [address] [facility] [address] [place] [address] Care Team Providers Care Materials Management Manager Name Role Phone Radha Jamison DO Primary Care Provider Abdias Murillo PharmD Unavailable Unavail able Nelia Sullivan PharmD Unavailable Letty Rinaldi Unavailable Dalila Carson RN Unavailable [phone] Ekta Reynolds Unavailable Reason for Visit * Reason Comments Med Refill Encounter Details Date Type Department Care Team (Late st Contact Info) Description 12/22/2022 Refill [facility] MEDICINE [address] [place], [place] [phone] Radha Jamison DO [address] [place] [address] Chronic bilateral low back pain, unspecified whether [...] 11:00 AM EST Office Visit [facility] CHC ADULT DENTAL [address] [place] [address] Umang Hampton 03/13/2025 9:30 AM EST Office Visit [facility] OPTOMETRY [address] [place] [address] TarkaRadha, OD [address] [place] [address] 03/17/2025 11:30 AM EST Medication Management [facility] MEDICINE [address] [place] [address] Nelia Sullivan PharmD [address] [place] [address] documented as of this encounter Goals Goal [...] documented as of this encounter Care Teams Materials Management Manager Relationship Specialty Start Date End Date Radha Jamison DO [address] [place] [address] PCP - General Family Medicine 01/26/12 Abdias Murillo, PharmD [address] [place] [address] Pharmacist Internal Medicine 03/21/22 08/30/23 Nelia Sullivan, KeithD [address] [place] [address] Pharmacist Internal Medicine 08/31/23 Letty Rinaldi 12/16/24 12/18/24 Dalila Carson, JOANN [address] [place] [phone] Registered Nurse Family Medicine 12/31/24 Ekta Reynolds 12/31/24 Laurel Monterroso Bookkeeping ClerkScreen Printing Cloth Spreader 02/20/25 Saige Aguilar 09/26/23 documented as of this encounter
--- OUTSIDE RECORDS SUMMARY | 2025-03-06 09:50 | XMS_ITS | Encounter Summary ---
Author Organization [employer] Address [address] [facility] [address] [place] [address] Care Team Providers Care Facility Administrator Name Role Phone Radha Jamison DO Primary Care Provider [phone] Abdias Murillo PharmD Unavailable Unavail able Nelia Sullivan PharmD Unavailable Letty Rinaldi Unavailable Dalila Carson RN Unavailable [phone] Ekta Reynolds Unavailable Reason for Visit * Reason Comments Med Refill Encounter Details Date Type Department Care Team (Late Contact Info) Description 11/10/2022 Refill [facility] MEDICINE [address] [place], [place] [phone] Radha Jamison DO [address] [place] [address] Chronic gastroesophageal reflux disease Social History Tobacco [...] Description 03/07/2025 11:00 AM EST Office Visit [facility] CHC ADULT DENTAL [address] [place] [address] Umang Hampton 03/13/2025 9:30 AM EST Office Visit [facility] OPTOMETRY [address] [place] [address] Radha Taylor, OD [address] [place] [address] 03/17/2025 11:30 AM EST Medication Management [facility] MEDICINE [address] [place] [address] Nelia Sullivan PharmD [address] [place] [address] documented as of this encounter Goals Goal [...] as of this encounter Care Teams Facility Administrator Relationship Specialty Start Date End Date Radha Jamison DO [address] [place] [address] PCP - General Family Medicine 01/26/12 Abdias Murillo, PharmD [address] [place] [address] Pharmacist Internal Medicine 03/21/22 08/30/23 Nelia Sullivan, PharmD [address] [place] [address] Pharmacist Internal Medicine 08/31/23 Letty Rinaldi 12/16/24 12/18/24 Dalila Carson RN [address] [place] [address] Registered Nurse Family Medicine 12/31/24 Ekta Reynolds 12/31/24 Laurel Monterroso Water SupervisorTransformer Shop Supervisor 02/20/25 Saige Aguilar 09/26/23 documented as of this encounter
--- OUTSIDE RECORDS SUMMARY | 2025-03-06 09:50 | XMS_ITS | Clinical Summary ---
Demographics Address [address] [facility] [address] [place] [address] Mobile Phone Home Phone Preferred Language es Marital Status Unknown Restorationism Affiliation Unknown Race White Ethnic Group Unknown Author Organization [employer] Address [address] [facility] [address] [place] [address] Care Team Providers Care Date Night Sitter Name Role Phone ShaheenRadha Primary Care Provider Nelia Sullivan PharmD Unavailable [phone] Dalila Carson RN Unavailable [phone] Ekta Reynolds Unavailable Allergies Active Allergy [...] 2:27 PM EST 024 Active Continuous Glucose Manager Integrated (Action Online PublishingStyle Jenn 3 [place]) device 1 each 3 times daily. Use daily as directed for CGM 1 each 025 Active glucose blood (FreeStyle Precision Julian Test) test strip Use to test blood sugar 3 times daily 100 each 02/25/19 26 1:05 PM EST 025 2025 Active TRUEplus Lancets 33G misc TEST BLOOD SUGAR UP TO THREE TIMES DAILY DIRECTED 100 each 12/28/19 2:27 PM EST 025 Active empagliflozin-metFO RMIN (Synjardy) 12.5-1000 MG Take 1 tablet by mouth with breakfast and with evening meal. 60 tablet 02/25/19 1:05 PM EST 025 2025 Active Asmanex HFA 100 MCG/ACT aerosol INHALE 2 PUFFS BY MOUTH TWICE DAILY RINSE MOUTH AFTER USING. 13 g 02/25/19 1:05 PM EST Active naloxone (Narcan) 4 mg/0.1 [...] capsule 3 12/28/19 2:27 PM EST Active aspirin (Aspirin Low Dose) 81 MG EC tabletIndications:H ypertension, unspecified type TAKE 1 TABLET BY MOUTH EVERY EVENING 90 tablet Active hydroCHLOROthiazide (HYDRODiuril) 50 MG tablet Take 1 tablet (50 mg) by mouth Once per day. 90 tablet 1 12/28/19 2:27 PM EST Active fluticasone (Flonase) 50 MCG/ACT nasal spray INSTILL 2 SPRAYS IN EACH NOSTRIL ONCE DAILY 48 g 2 12/28/19 25 2:27 PM EST Active Diclofenac Sodium 1 % gel APPLY 2 GRAMS TOPICALLY TO AFFECTED AREA(S) 4 TIMES A DAY IN THE MORNING, AT NOON, IN THE EVENING, AND AT BEDTIME NEEDED FOR PAIN 200 g 2 Active insulin pen needle (Pentips Generic Pen [place]) 32G x 4 mm miscIndications:Typ e 2 diabetes mellitus with hyperglycemia, with long-term current use of insulin (HCC) Use as instructed to inject insulin once daily 100 each 3 12/28/19 25 2:27 PM EST Active Semaglutide,0.25 or 0.5MG/DOS, (Ozempic, 0.25 or 0.5 MG/DOSE,) 2 MG/3ML solution pen-injectorIndicat ions:Type 2 diabetes mellitus with hyperglycemia, with long-term current use of insulin (HCC) Inject 0.5 mg under the skin 1 (one) time per week. 3 mL 02/25/19 26 1:05 PM EST Active carvedilol (Coreg) 25 MG tabletIndications:H ypertension, unspecified type TAKE 1 TABLET BY MOUTH TWICE DAILY IN THE MORNING AND IN THE EVENING WITH FOOD 180 tablet 1 12/28/19 2:27 PM EST Active Ventolin HFA 108 (90 Base) MCG/ACT inhalerIndications: Mild persistent asthma without complication INHALE 2 PUFFS BY MOUTH EVERY 6 HOURS NEEDED FOR WHEEZING OR SHORTNESS OF BREATH 18 g 2 Active Blood Pressure Monitoring (Omron 3 Series BP Monitor) deviceIndications:E ssential hypertension USE TO CHECK BLOOD PRESSURE ONCE A DAY 1 each 09/11/2 025 Active lidocaine (Lidoderm) 5 % patch APPLY 1 TO 2 PATCHES TOPICALLY TO SKIN, LEAVE ON FOR 12 HOURS AND OFF FOR 12 HOURS DIRECTED 60 patch 3 Active gabapentin (Neurontin) 400 MG capsule Take 400 mg by mouth at bedtime. Active hydrALAZINE (Apresoline) 25 MG tablet Take 25 mg by mouth 3 times daily. 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 CALL 911 IF NO RELIEF 25 tablet 1 025 Active amitriptyline (Elavil) 50 MG tabletIndications:O ther chronic pain TAKE 1 TABLET BY MOUTH AT BEDTIME 30 tablet 3 Active escitalopram (Lexapro) 20 MG tabletIndications:D epression, unspecified depression type TAKE 1 TABLET BY MOUTH EVERY EVENING 90 tablet 3 02/25/19 1:05 PM EST Active loratadine (Claritin) 10 MG tablet TAKE 1 TABLET BY MOUTH EVERY DAY 90 tablet 3 12/28/19 2:27 PM EST 025 Active pioglitazone (Actos) [...] by mouth at bedtime. 90 tablet 1 02/25/19 26 1:05 PM EST 025 Active Multiple Vitamin (Multivitamin) tabletIndications:H ypertension, unspecified type TAKE 1 TABLET BY MOUTH EVERY MORNING WITH FOOD 90 tablet 12/28/19 25 2:27 PM EST 025 Active triamcinolone (Kenalog) 0.1 % ointment Apply topically if needed in the morning and at bedtime for rash for up to 28 days. 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 Increase as directed to max of 30 units per day. 15 mL 1 01/29/20 10:44 AM EST 025 Active Eliquis 5 MG tabletIndications:S plenic infarct TAKE 1 TABLET BY MOUTH TWICE DAILY IN THE MORNING AND IN THE EVENING 60 tablet 3 02/25/19 26 1:05 PM EST 025 Active ezetimibe (Zetia) 10 MG tablet Take 1 tablet (10 mg) by mouth Once per day. 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 10/03/2024 Assessment [...] B vaccine -pap wnl May 2014 with [employer] SUPERVISOR, advised schedule f/u, contact info given -mammo [...] -she will meet w/ HIM RN re: GEM TECHNICIAN svcs Obstructive sleep apnea 12/04/2014 Tobacco [...] metformin and actos as rx'd -referred to [facility] pharm for CTDM -cont regular FS [...] the day and to continue care w hazmat technician and PCP ------ Addendum : EMT came and pickle maker pt but once she was taken to ambulance pt decide not to go to ED and signed leave AMA 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 05/04/2020 03/18/2022 Encounters Date Type Department Care Team Description 03/06/2025 Telephone [facility] MED[facility] [address] [place] [address] Radha Jamison DO Care Coordination (Home Care Utilization Review Agency contacted) 03/05/2025 Telephone [facility] [address] [place], [place] [phone] Radha Jamison DO Care Coordination (Home Care Utilization Review and reduction of SN visits ) 03/05/2025 Orders Only GENERIC EXTERNAL DATA DEPARTMENT Provider, Generic External Data 03/05/2025 Patient Outreach [facility] [address] [place] [address] Radha Jamison DO Care Coordination (Triage) 03/05/[address] [address] Radha Jamison DO Call Back Request 03/05/2025 Patient Outreach [address] [address] Radha Jamison DO Care Management (C3CM- initial assessment/ enrollment. lvm) 03/04/2025 Patient Outreach [address] [address] Radha Jamison DO Care Coordination (CM/CHW appointment reminder) 02/21/[address] [address] Radha Jamison DO 02/20/2025 Telephone [facility] [address] [place] [address] Radha Jamison DO Care Coordination (CP Care Plan) 02/16/2025 Refill [facility] [address] [place] [phone] Radha Jamison DO Mood disorder (CMS/HCC) 01/20/2025 Refill [facility] [address] [place] [address] Radha Jamison DO 01/17/2025 Refill [facility] [address] [place] [address] Vickie Penaloza MD Splenic infarct 01/07/2025 Telephone [facility] [address] [place] [address] Radha Jamison DO Appointment Request 01/07/2025 Travel 01/03/2025 Telephone [facility] [address] [place] [address] Radha Jamison DO Appointment Request 01/02/2025 Refill [facility] [address] [place] [address] Radha Jamison DO Mood disorder (CMS/HCC) 12/31/2024 Patient Outreach [address] [address] Radha Jamison DO Care Coordination (CHW Chart Review) 12/31/2024 Patient Outreach [address] [address] Radha Jamison DO Care Management (CM- chart review) 12/31/2024 Patient Outreach [address] [address] Radha Jamison DO 12/30/[address] [address] Radha Jamison DO Appointment Request 12/27/2024 11:45 AM EST Office Visit [address] [address] Radha Jamison DO 12/27/2024 Travel 12/25/[address] [address] Radha Jamison DO Chart Prep 12/23/[address] [address] Audrey Foreman MD No Show 12/20/[address] [address] Radha Jamison DO Appointment Request 12/19/[address] [address] Radha Jamison DO chart prep 12/18/2024 Patient Outreach [facility] [address] [place] [address] Radha Jamison DO Care Coordination (Communication to pts Assigned CP Coordinator ) 12/17/[address] [address] Radha Jamison DO Order 12/17/[address] [address] Radha Jamison DO ER Follow-up 12/17/[address] [address] Radha Jamison DO 12/17/2024 Patient Outreach [facility] [address] [place] [address] Radha Jamison DO Care Coordination (CP Care Coordination Chart Review) 12/16/2024 Patient Outreach [address] [address] Radha Jamison DO 12/16/2024 Refill [facility] [address] [place] [address] Radha Jamison DO Hypertension, unspecified type 12/16/2024 Orders Only GENERIC EXTERNAL DATA DEPARTMENT Provider, Generic External Data 2024 Orders Only GENERIC EXTERNAL DATA DEPARTMENT Provider, Generic External Data 12/06/2024 Travel 12/05/[address] [address] Radha Jamison DO Care Coordination (Utilization Home Health) 12/05/[address] [address] Radha Jamison DO Care Coordination (Home Health Utilization) 12/05/[address] [address] Radha Jamison DO from Last 3 Months Immunizations Immunization Administration [...] Description 03/07/2025 11:00 AM EST Office Visit [facility] CHC ADULT DENTAL [address] [place] [address] JenarotamraJayden coelhoUmang 03/13/2025 9:30 AM EST Office Visit [facility] OPTOMETRY [address] [place] [address] TarRadha bang, OD [address] [place] [address] 03/17/2025 11:30 AM EST Medication Management [facility] [address] [place] [address] Nelia Sullivan, PharmD [address] [place] [address] Health Maintenance Due Date Last Done Comments CT Colonography 1961 Colonoscopy 1961 Colorectal Cancer Screening 1961 Dental Oral Exam 1961 Dental Prophylaxis 1961 Dental X-Ray: Bitewings 1961 FIT DNA/Cologuard 1961 FIT 1961 FOBT 1961 Sigmoidoscopy 1961 Diabetes: Foot Exam 12/16/1971 Eye Exam 12/16/1971 Alcohol/Substance Use Screening 1973 DTaP/Tdap/Td Vaccines (1 - Tdap) 1980 Pap [...] 08/08/2022, Additional history exists COVID-19 Vaccine ( season) 2024 10/02/2020 Influenza Vaccine (#1) 2024 11/18/2013, 2009 Lung Cancer Screening 01/08/2025 01/09/2024 Diabetes: Hemoglobin A1C 03/08/2025 025, 09/03/2024, 05/24/2024, [...] has chronic kidney disease No Josue Reynolds Weekly blood pressure task [...] Plan Patient has chronic kidney disease No Puia Nelia, PharmD Weekly blood pressure task Care [...] Care Plan Weekly blood pressure task No Tatum Viera MEDICAL SONOGRAPHER Weekly blood pressure task Care Plan Weekly blood pressure task No Tatum Viera MEDICAL SONOGRAPHER Weekly blood pressure task Care Plan Weekly blood pressure task No Viera, Tatum, MEDICAL SONOGRAPHER Patient has diabetic eye disease Care Plan Patient has diabetic eye disease No Viera, Tatum, MEDICAL SONOGRAPHER Patient has diabetic eye disease Care Plan Patient has diabetic eye disease No Viera, Tatum, MEDICAL SONOGRAPHER Patient has diabetic eye disease Care Plan Patient has diabetic eye disease No Viera, Tatum, MEDICAL SONOGRAPHER Patient has chronic kidney disease Care Plan Patient has chronic kidney disease No Viera, Tatum, MEDICAL SONOGRAPHER Patient has chronic kidney disease Care Plan Patient has chronic kidney disease No Viera, Tatum, MEDICAL SONOGRAPHER Patient has chronic kidney disease Care Plan Patient has chronic kidney disease No Viera, Tatum, MEDICAL SONOGRAPHER Weekly blood pressure task Care Plan Weekly blood pressure task No MirandaMarybethRadha, PharmD Weekly blood pressure task Care Plan Weekly blood pressure task No MirandaMarybethRadha, PharmD Weekly blood pressure task Care Plan Weekly blood pressure task No Miranda, Radha, PharmD Patient has diabetic eye disease Care Plan Patient has diabetic eye disease No Miranda, Radha, PharmD Patient has diabetic eye disease Care Plan Patient has diabetic eye disease No Miranda, Radha, PharmD Patient has diabetic eye disease Care Plan Patient has diabetic eye disease No Miranda, Radha, PharmD Patient has chronic kidney disease Care Plan Patient has chronic kidney disease No Miranda, Radha, PharmD Patient has chronic kidney disease Care Plan Patient has chronic kidney disease No Miranda, Radha, PharmD Patient has chronic kidney disease Care Plan Patient has chronic kidney disease No Miranda, Radha, PharmD Weekly blood pressure task Care Plan [...] Plan Patient has chronic kidney disease No Nelia Sullivan PharmD Weekly blood pressure task Care Plan [...] Care Plan Weekly blood pressure task No Letty Rinaldi Weekly blood pressure task Care Plan Weekly blood pressure task No Letty Rinaldi Weekly blood pressure task Care Plan Weekly blood pressure task No Letty Rinaldi Patient has diabetic eye disease Care Plan Patient has diabetic eye disease No Letty Rinaldi Patient has diabetic eye disease Care Plan Patient has diabetic eye disease No Letty Rinaldi Patient has diabetic eye disease Care Plan Patient has diabetic eye disease No Letty Rinaldi Patient has chronic kidney disease Care Plan Patient has chronic kidney disease No Letty Rinaldi Patient has chronic kidney disease Care Plan Patient has chronic kidney disease No Letty Rinaldi Patient has chronic kidney disease Care Plan Patient has chronic kidney disease No Letty Rinaldi Weekly blood pressure task Care Plan Weekly blood pressure task No Dalila Mantilla LPN Weekly blood pressure task Care Plan Weekly blood pressure task No Dalila Mantilla LPN Weekly blood pressure task Care Plan Weekly blood pressure task No Jose RafaelDalila atkins MEDICAL SONOGRAPHER Patient has diabetic eye disease Care Plan Patient has diabetic eye disease No Jose RafaelDalila atkins MEDICAL SONOGRAPHER Patient has diabetic eye disease Care Plan Patient has diabetic eye disease No Jose RafaelDalila atkins, MEDICAL SONOGRAPHER Patient has diabetic eye disease Care Plan Patient has diabetic eye disease No Jose RafaelDalila atkins MEDICAL SONOGRAPHER Patient has chronic kidney disease Care Plan Patient has chronic kidney disease No Jose RafaelDalila atkins, MEDICAL SONOGRAPHER Patient has chronic kidney disease Care Plan Patient has chronic kidney disease No Jose RafaelDalila atkins, MEDICAL SONOGRAPHER Patient has chronic kidney disease Care Plan Patient has chronic kidney disease No Jose RafaelDalila atkins MEDICAL SONOGRAPHER Weekly blood pressure task Care Plan Weekly [...] Care Plan Weekly blood pressure task No Geovanna Pearson Weekly blood pressure task Care Plan Weekly blood pressure task No Geovanna Pearson Weekly blood pressure task Care Plan Weekly blood pressure task No Geovanna Pearson Patient has diabetic eye disease Care Plan Patient has diabetic eye disease No Geovanna Pearson Patient has diabetic eye disease Care Plan Patient has diabetic eye disease No Geovanna Pearson Patient has diabetic eye disease Care Plan Patient has diabetic eye disease No Geovanna Pearson Patient has chronic kidney disease Care Plan Patient has chronic kidney disease No Geovanna Pearson Patient has chronic kidney disease Care Plan Patient has chronic kidney disease No Geovanna Pearson Patient has chronic kidney disease Care Plan Patient has chronic kidney disease No Geovanna Pearson Weekly blood pressure task Care Plan Weekly [...] Care Plan Weekly blood pressure task No Jose RafaelSabinaDalila, MEDICAL SONOGRAPHER Weekly blood pressure task Care Plan Weekly blood pressure task No Jose RfaaelSabinaDalila, MEDICAL SONOGRAPHER Weekly blood pressure task Care Plan Weekly blood pressure task No Jose Rafael Dalila, MEDICAL SONOGRAPHER Patient has diabetic eye disease Care Plan Patient has diabetic eye disease No Jose RafaelSabinaDalila, MEDICAL SONOGRAPHER Patient has diabetic eye disease Care Plan Patient has diabetic eye disease No Jose Rafael, Dalila, MEDICAL SONOGRAPHER Patient has diabetic eye disease Care Plan Patient has diabetic eye disease No Jose Rafael, Dalila, MEDICAL SONOGRAPHER Patient has chronic kidney disease Care Plan Patient has chronic kidney disease No Jose Rafael, Dalila, MEDICAL SONOGRAPHER Patient has chronic kidney disease Care Plan Patient has chronic kidney disease No Jose Rafael, Dalila, MEDICAL SONOGRAPHER Patient has chronic kidney disease Care Plan Patient has chronic kidney disease No Jose Rafael, Dalila, MEDICAL SONOGRAPHER Weekly blood pressure task Care Plan Weekly blood pressure task No Jose RafaelSabinaDalila, MEDICAL SONOGRAPHER Weekly blood pressure task Care Plan Weekly blood pressure task No Jose RafaelSabinaDalila, MEDICAL SONOGRAPHER Weekly blood pressure task Care Plan Weekly blood pressure task No Jose Rafael, Dalila, MEDICAL SONOGRAPHER Patient has diabetic eye disease Care Plan Patient has diabetic eye disease No Jose Rafael, Dalila, MEDICAL SONOGRAPHER Patient has diabetic eye disease Care Plan Patient has diabetic eye disease No Jose Rafael, Dalila, MEDICAL SONOGRAPHER Patient has diabetic eye disease Care Plan Patient has diabetic eye disease No Jose Rafael, Dalila, MEDICAL SONOGRAPHER Patient has chronic kidney disease Care Plan Patient has chronic kidney disease No Jose Rafael Dalila, MEDICAL SONOGRAPHER Patient has chronic kidney disease Care Plan Patient has chronic kidney disease No Jose Rafael, Dalila, MEDICAL SONOGRAPHER Patient has chronic kidney disease Care Plan Patient has chronic kidney disease No Dalila Mantilla LPN Procedures Procedure Name Priority Date/Time Associated Diagnosis Comments XR FOOT 3+ VIEWS RIGHT Routine 03/06/2025 2:15 AM EST XR CALCANEUS 2 VIEWS RIGHT Routine 03/06/2025 2:09 AM EST C-REACTIVE PROTEIN Routine 03/05/2025 10 :32 PM EST SED RATE BY MODIFIED WESTERGREN Routine 03/05/2025 10:32 PM EST COMPREHENSIVE METABOLIC PANEL Routine 03/05/2025 10:32 PM EST CBC WITH AUTO DIFFERENTIAL Routine 03/05/2025 10:32 PM EST COVID-19 ID NOW (ULLOA) Routine 12/16/2024 2:08 [...] Relevant to Health Maintenance Results * XR Foot 3+ Views Right (03/06/2025 2:15 AM EST) Anatomical Region Laterality Modality Lower Extremities, Foot Right [facility] 03/06/2025 2:15 AM EST Narrative 03/06/2025 2:16 AM EST [place] [address] XRay Report Signed Patient: Rocío Hallman MR#: [id number] 087 : 1960 Acct:[id number] Age/Sex: 64 / F ADM Date: 03/05/25 Loc: HO.ED Attending Dr: Ordering Physician: Noe Younger MD Date of Service: 03/06/25 Procedure(s): XR foot RT min 3V Accession Number(s): [id number] cc: [facility]; Noe Younger MD Reason for Exam: pinkie toe pain, no trauma CLINICAL HISTORY: pinkie toe pain, no trauma RIGHT FOOT X-RAYS COMPARISON: None provided. FINDINGS: A total of 3 views of the right foot were obtained. The right calcaneus x-ray study will be reported separately. No evidence of an acute fracture or dislocation within the right foot. Specifically the fifth toe is intact. Joint spaces are maintained. Vascular calcifications are present. IMPRESSION: 1. No acute disease. This document has been electronically signed by: Adolfo Wiley M.D. on 03/06/2025 02:15:25 Dictated By: Adolfo Wiley MD Signed By: <Electronically signed by Adolfo Wiley MD in OV> 03/06/25215 DD/ 4 TD/TT: 03/06/25214 Coffee Brewer: Procedure Note Donotuseinterpreter, Image - 03/06/[address] [address] XRay Report Signed Patient: Rocío HallmanMR#: [id number] 087 : 1960cct:[id number] Age/Sex: 64 / FADM Date: 03/05/25 Loc: HO.ED Attending Dr: Ordering Physician: Noe Younger MD Date of Service: 03/06/25 Procedure(s): XR foot RT min 3V Accession Number(s): [id number] cc: [facility]; Noe Younger MD Reason for Exam: pinkie toe pain, no trauma CLINICAL HISTORY: pinkie toe pain, no trauma RIGHT FOOT X-RAYS COMPARISON: None provided. FINDINGS: A total of 3 views of the right foot were obtained. The right calcaneus x-ray study will be reported separately. No evidence of an acute fracture or dislocation within the right foot. Specifically the fifth toe is intact. Joint spaces are maintained. Vascular calcifications are present. IMPRESSION: 1. No acute disease. This document has been electronically signed by: Adolfo Wiley M.D. on 03/06/2025 02:15:25 Dictated By: Adolfo Wiley MD Signed By: <Electronically signed by Adolfo Wiley MD in OV> 03/06/25215 DD/ 4 TD/TT: 03/06/25214 Coffee Brewer: [facility] External Provider IMG XR PROCEDURES Edited Result - Final * XR Calcaneus 2 Views Right (03/06/2025 2:09 AM EST) Anatomical Region Laterality Modality Lower Extremities, Calcaneus Right Rad iographic Imaging 03/06/2025 2:09 AM EST Narrative 03/06/2025 2:10 AM EST [address] [address] XRay Report Signed Patient: Rocío Hallman MR#: [id number] : 1960 Acct:[id number] Age/Sex: 64 / F ADM Date: 03/05/25 Loc: HO.ED Attending Dr: Ordering Physician: Neo Younger MD Date of Service: 03/06/25 Procedure(s): XR calcaneus RT min 2V Accession Number(s): [id number] cc: [facility]; Noe Younger MD Reason for Exam: pain at dorsum of calcaneus CLINICAL HISTORY: pain at dorsum of calcaneus RIGHT CALCANEUS X-RAYS COMPARISON: None provided. FINDINGS: A total of 2 views of the right calcaneus were obtained. No evidence of an acute fracture or dislocation within the calcaneus. Achilles enthesophyte and 5-6 mm plantar calcaneal spur are noted. Vascular calcifications are present. Right foot x-ray study will be reported separately. IMPRESSION: 1. No acute disease. 2. Achilles enthesophyte and plantar calcaneal spur are noted. This document has been electronically signed by: Adolfo Wiley M.D. on 03/06/2025 02:09:11 Dictated By: Adolfo Wiley MD Signed By: <Electronically signed by Adolfo Wiley MD in OV> 03/06/25209 DD/ 8 TD/TT: 03/06/25208 Coffee Brewer: Procedure Note Donotuseinterpreter, Image - 03/06/2025 [place] [address] XRay Report Signed Patient: Rocío Hallman#: [id number] : 1960cct:[id number] Age/Sex: 64 / FADM Date: 03/05/25 Loc: HO.ED Attending Dr: Ordering Physician: Noe Younger MD Date of Service: 03/06/25 Procedure(s): XR calcaneus RT min 2V Accession Number(s): [id number] cc: [facility]; Noe Younger MD Reason for Exam: pain at dorsum of calcaneus CLINICAL HISTORY: pain at dorsum of calcaneus RIGHT CALCANEUS X-RAYS COMPARISON: None provided. FINDINGS: A total of 2 views of the right calcaneus were obtained. No evidence of an acute fracture or dislocation within the calcaneus. Achilles enthesophyte and 5-6 mm plantar calcaneal spur are noted. Vascular calcifications are present. Right foot x-ray study will be reported separately. IMPRESSION: 1. No acute disease. 2. Achilles enthesophyte and plantar calcaneal spur are noted. This document has been electronically signed by: Adolfo Wiley M.D. on 03/06/2025 02:09:11 Dictated By: Adolfo Wiley MD Signed By: <Electronically signed by Adolfo Wiley MD in OV> 03/06/25209 DD/ 8 TD/TT: 03/06/25208 Coffee Brewer: us [facility] Hospital External Provider IMG XR PROCEDURES Edited Result - Final * (ABNORMAL) CBC auto differential (03/05/2025 10:32 PM EST) Only the most recent of2 resultswithin the time period is included. White Blood Count 6.9 4.8 - 10.8 X10*3/uL [facility] Red Blood Count 4.09(L) 4.20 - 5.50 X10*6/uL [facility] Hemoglobin 11.7(L) 12.0 - 16.0 g/dl [facility] Hematocrit 35.6(L) 37.0 - 47.0 % [facility] Mean Corpuscular Volume 87.0 80.0 - 98.0 fL [facility] Mean Corpuscular Hemoglobin 28.6 27.0 - 33.0 pg [facility] Mean Corpuscular HGB Conc 32.9 31.0 - 35.0 g/dl [facility] Red Cell Distribution Width 14.5 11.0 - 16.0 % [facility] Platelet Count 285 160 - 400 X10*3/uL [facility] Mean Platelet Volume 9.0(L) 9.4 - 12.3 fL [facility] Neutrophils Percent Auto 57.7 45 - 73 % [facility] Imm Gran Pct Auto 0.1 0.0 - 0.4 % [facility] Lymphocytes Percent Auto 31.2 20 - 40 % [facility] Monocytes Percent Auto 6.1 2 - 11 % [facility] Eosinophils Percent Auto 4.2(H) 0 - 4 % [facility] Basophils Percent Auto 0.7 0 - 2 % [facility] NRBC Pct Auto 0.0 0.0 - 0.2 /100WBC [facility] Neutrophils Absolute Auto 4.0 2.0 - 8.3 x10*3/uL [facility] Imm Gran Abs Auto 0.01 0.00 - 0.03 X10*3/uL [facility] Lymphocytes Absolute Auto 2.2 1.2 - 4.9 X10*3/uL [facility] Monocytes Absolute Auto 0.4 0.1 - 1.2 X10*3/uL [facility] Eosinophils Absolute Auto 0.3 0.0 - 0.4 X10*3/uL [facility] Basophils Absolute Auto 0.1 0.0 - 0.2 X10*3/uL [facility] NRBC Abs Auto 0.000 0.0 - 0.012 X10*3/uL [facility] 03/05/2025 10:3 2 PM EST 03/05/2025 10:35 PM EST us Generic External Data Provider LAB BLOOD ORDERAB LES Final Result Performing Organization Address [facility] Co de Phone Number [facility] [address] [place] [address] [phone] * (ABNORMAL) Sed Rate by Modified Liloren (03/05/2025 10:32 PM EST) Erythrocyte Sedimentation Rate 42(H) 1 - 30 MM/HR [facility] Comment:Patients with polycy themia and many hemoglobin abnormalitiesmay have depressed sed rates whereas patients with anemiamay have elevated sed rates. 03/05/2025 10:3 2 PM EST 03/06/2025 1:22 AM EST us Generic External Data Provider LAB BLOOD ORDERAB LES Final Result [facility] [address] [place] [address] [phone] * C-reactive Protein (03/05/2025 10:32 PM EST) Pathologist [facility] C Reactive Protein 0.10 < or = 0.50 mg/dL [facility] 03/05/2025 10:3 2 PM EST 03/05/2025 10:35 PM EST us Generic External Data Provider LAB BLOOD ORDERAB LES Final Result Performing Organization Address [facility]/ZIP Co de Phone Number [facility] [address] [place] [address] [phone] * (ABNORMAL) Comprehensive Metabolic Panel (03/05/2025 10:32 PM EST) Only the most recent of2 resultswithin the time period is included. Pathologist [facility] Sodium 139 135 - 145 mmol/L [facility] Potassium 4.0 3.3 - 5.1 mmol/L [facility] Chloride 104 96 - 108 mmol/L [facility] Carbon Dioxide 28 22 - 29 mmol/L [facility] Anion Gap 11(L) 12 - 20 [facility] Urea Nitrogen (BUN) 23(H) 9 - 16 mg/dL [facility] Creatinine, Serum 1.13 0.5 - 1.4 mg/dL [facility] Creatinine Clr Calc Pharmacy 42.3 [facility] Comment:Provided height and weight: 152.4 cm,63.503 kg.eGFR (calculated from the MDRD study equation) and eCrCl(calculated from the Cockcroft-Gault equation) are based ondifferent parameters and may not yield comparable results.If eCrCl result is absurd, please check patient'sheight/weight. Estimated Glomerular Filt Rate 49 [facility] Comment:Chronic Kidney Disea se: Estimated GFR < 60 mL/min/1.80b7Vevjvr Kidney Disease: Estimated GFR < 15 mL/min/1.73m2 Glucose 279(H) 60 - 115 mg/dL [facility] Calcium 9.0 8.4 - 10.2 mg/dL [facility] Bilirubin, Total 0.3 0.0 - 1.0 mg/dL [facility] Aspartate Amino Transferase 16 5 - 31 U/L [facility] Alanine Aminotransferase 8 0 - 31 U/L [facility] Total Protein 6.2(L) 6.5 - 8.0 g/dL [facility] Albumin Level 3.5 3.5 - 5.0 g/dL [facility] Alkaline Phosphatase 97 39 - 117 U/L [facility] 03/05/2025 10:3 2 PM EST 03/05/2025 10:35 PM EST us Generic External Data Provider LAB BLOOD ORDERAB LES Final Result [facility] [address] [place] [address] [phone] * COVID-19 ID NOW (Fits.me) (12/16/2024 2:08 AM EST) IDNOW SERIAL# [id number] [facility] COVID-19 TEST Negative Negative [facility] COVID-19 NOTE See Note [facility] Comment: Results are for the identification of SARS-CoV2 RNA. TheSARS-CoV2 RNA is generally detectable in respiratory samplesduring the acute phase of infection. Positive results areindicative of the presence of SARS-CoV-2 RNA; clinicalcorrelation with patient history and other diagnosticinformation is necessary to determine patient infectionstatus. Positive results do not rule out bacterial infectionor co- infection with other viruses.Testing facilities within the [facility] and itsterritories are required to report [...] use by authorized laboratories.Testing performed on the [facility] ID NOW utilizing NAAT. 12/16/2024 2:08 AM EST 12/16/2024 2:12 AM EST us Generic External Data Provider LAB MOLECULAR AKHIL GNOSTICS ORDERABLES Final Result [facility] [address] [place] [phone] * (ABNORMAL) POCT Hgb A1c (12/06/2024 12:48 PM EDT) Hemoglobin A1C 10.1(A) 4.0 - 5.7 % Blood 12/06/2024 12:4 8 PM EDT Radha Jamison DO POINT OF CARE TEST ENTER/BHARGAVI T ORDERABLES Final Result * (ABNORMAL) Lipid Panel, Standard (07/24/2024 10:41 AM EDT) Triglycerides 157(H) <150 mg/dL [facility] Comment:Desirable Triglyceri de: less than 150 mg/dLBorderline High Triglyceride 150-199 mg/dLHigh Triglyceride: 200-499 mg/dLVery High Triglyceride: greater than or equal to 5OO mg/dL Cholesterol 234(H) <200 mg/dL [facility] Comment:Desirable Cholestero l: less than 200 mg/dLBorderline High Cholesterol: 200-239 mg/dLHigh Cholesterol: greater than 239 mg/dL LDL Cholesterol Calculated 159(H) <100 mg/dL [facility] Comment:Desirable LDL: less than 100 mg/dLNear Optimal/Above Optimal LDL: 110- 129 mg/dLBorderline High LDL: 130-159 mg/dLHigh LDL: 160-189 mg/dLVery High LDL: greater than or equal to 190 mg/dL HDL Cholesterol 44 >40 mg/dL [facility] Comment:Desirable HDL: great er than 40 mg/dL Note: This HDL assay may give artificially low results in patients with liver disease. 07/24/2024 10:4 1 AM EDT 07/24/2024 10:41 AM EDT [facility] BLOOD ORDERABLES Final R esult Performing Organization Address [facility] Co de Phone Number [facility] [address] [place] [address] [phone] * (ABNORMAL) Albumin, Random Urine W/Creatinine (05/15/2023 8:20 AM EDT) Creatinine, Urine 105.69 mg/dL [facility] Microalbumin Urine 1,418.0 mg/L [facility] Microalbum Creatinine Ratio Ur 1,341.6(H ) <30 ug/mg cr [facility] Comment:Albumin/Creatinine R atio Reference Ranges: Normal: < 30 ug/mg creatinine Microalbuminuria: 30 - 300 ug/mg creatinineClinical Albuminuria: > 300 ug/mg creatinine Urine (Urine, Random) 05/15/2023 8:20 AM EDT 05/15/2023 8:31 AM EDT Radha Jamison LAB URINE ORDERABLES Final R esult Performing Organization Address [facility] Co de Phone Number [facility] [address] [place] [address] [phone] * Hepatitis C Antibody with Reflex to HCV RNA,PCR w/Reflex to Genotype, LiPA (08/08/2022 10:44 AM EDT) Pathologist [facility] Hepatitis C Antibody NON-REACT ROMERO NON-REACT ROMERO [facility] Comment: HCV antibody was non-reactive. There is no laboratory evidence of HCV infection. In most cases, no further action is required. However, if recent HCV exposure is suspected, a test for HCV RNA (test code 25366) is suggested. For additional information, please refer to http://[facility].[address] Perry/faq/DSK202 (This link is being provided for informational/ educational purposes only.) 08/08/2022 10:4 4 AM EDT 08/08/2022 10:45 AM EDT Narrative [facility] - 08/09/2022 7:27 PM EDT FASTING:YES COLLECTION KIT GIVEN TO PATIENT. PATIENT ADVISED TO RETURN. FASTING: YES Radha Jamison DO LAB BLOOD ORDERABLES Final R esult [facility] [employer] [address], [place] [address] [facility] [address] [place] [address] * HIV-1/2 Antigen and Antibodies, Fourth Generation, with Reflexes (08/08/2022 10:44 AM EDT) Pathologist [facility] HIV Antigen/Antibody, 4th Generation NON-REAC TIVE NON-REAC TIVE [facility] [place] [facility] Comment: HIV-1 antigen and HIV-1/HIV-2 antibodies [...] purpose. For additional information please refer to http://[facility].Oxtox/faq/GFV326 (This link is being provided for informational/ [...] BLOOD ORDERABLES Final R esult [facility] [address] [facility], [facility], [place] [address] [facility] [address] [place] [address] * Mammography Report 1 (10/06/2021 1:35 PM EDT) Anatomical Region Laterality Modality Breast Bilateral Mammography 10/06/2021 1:35 PM EDT Narrative 10/06/2021 4:07 PM EDT Refer to the Notes tab for result details Legacy Procedure: Mammography Report 1 Procedure Note ProviderRoseann MD - 05/08/2022 Refer to the Notes tab [...] 01/20/2025 Patient has chronic kidney disease 01/20/2025 Weekly blood pressure task 02/05/2025 Weekly blood pressure task 02/05/2025 Weekly blood pressure task 02/05/2025 Patient has diabetic eye disease 02/05/2025 Patient has diabetic eye disease 02/05/2025 Patient has diabetic eye disease 02/05/2025 Patient has chronic kidney disease 02/05/2025 Patient has chronic kidney disease 02/05/2025 Patient has chronic kidney disease 02/05/2025 Weekly blood pressure task 02/11/2025 Weekly blood pressure task 02/11/2025 Weekly blood pressure task 02/11/2025 Patient has diabetic eye disease 02/11/2025 Patient has diabetic eye disease 02/11/2025 Patient has diabetic eye disease 02/11/2025 Patient has chronic kidney disease 02/11/2025 Patient has chronic kidney disease 02/11/2025 Patient has chronic kidney disease 02/11/2025 Weekly blood pressure task 02/20/2025 Weekly blood pressure task 02/20/2025 Weekly blood pressure task 02/20/2025 Patient has diabetic eye disease 02/20/2025 Patient has diabetic eye disease 02/20/2025 Patient has diabetic eye disease 02/20/2025 Patient has chronic kidney disease 02/20/2025 Patient has chronic kidney disease 02/20/2025 Patient has chronic kidney disease 02/20/2025 Weekly blood pressure task 02/21/2025 Weekly blood pressure task 02/21/2025 Weekly blood pressure task 02/21/2025 Patient has diabetic eye disease 02/21/2025 Patient has diabetic eye disease 02/21/2025 Patient has diabetic eye disease 02/21/2025 Patient has chronic kidney disease 02/21/2025 Patient has chronic kidney disease 02/21/2025 Patient has chronic kidney disease 02/21/2025 Weekly blood pressure task 03/04/2025 Weekly blood pressure task 03/04/2025 Weekly blood pressure task 03/04/2025 Patient has diabetic eye disease 03/04/2025 Patient has diabetic eye disease 03/04/2025 Patient has diabetic eye disease 03/04/2025 Patient has chronic kidney disease 03/04/2025 Patient has chronic kidney disease 03/04/2025 Patient has chronic kidney disease 03/04/2025 Weekly blood pressure task 03/05/2025 Weekly blood pressure task 03/05/2025 Weekly blood pressure task 03/05/2025 Patient has diabetic eye disease 03/05/2025 Patient has diabetic eye disease 03/05/2025 Patient has diabetic eye disease 03/05/2025 Patient has chronic kidney disease 03/05/2025 Patient has chronic kidney disease 03/05/2025 Patient has chronic kidney disease 03/05/2025 Weekly blood pressure task 03/05/2025 Weekly blood pressure task 03/05/2025 Weekly blood pressure task 03/05/2025 Patient has diabetic eye disease 03/05/2025 Patient has diabetic eye disease 03/05/2025 Patient has diabetic eye disease 03/05/2025 Patient has chronic kidney disease 03/05/2025 Patient has chronic kidney disease 03/05/2025 Patient has chronic kidney disease 03/05/2025 Weekly blood pressure task 03/05/2025 Weekly blood pressure task 03/05/2025 Weekly blood pressure task 03/05/2025 Patient has diabetic eye disease 03/05/2025 Patient has diabetic eye disease 03/05/2025 Patient has diabetic eye disease 03/05/2025 Patient has chronic kidney disease 03/05/2025 Patient has chronic kidney disease 03/05/2025 Patient has chronic kidney disease 03/05/2025 Weekly blood pressure task 03/06/2025 Weekly blood pressure task 03/06/2025 Weekly blood pressure task 03/06/2025 Patient has diabetic eye disease 03/06/2025 Patient has diabetic eye disease 03/06/2025 Patient has diabetic eye disease 03/06/2025 Patient has chronic kidney disease 03/06/2025 Patient has chronic kidney disease 03/06/2025 Patient has chronic kidney disease 03/06/2025 Weekly blood pressure task 03/06/2025 Weekly blood pressure task 03/06/2025 Weekly blood pressure task 03/06/2025 Patient has diabetic eye disease 03/06/2025 Patient has diabetic eye disease 03/06/2025 Patient has diabetic eye disease 03/06/2025 Patient has chronic kidney disease 03/06/2025 Patient has chronic kidney disease 03/06/2025 Patient has chronic kidney disease 03/06/2025 Insurance [facility] C3 Care Teams Date Night Sitter Relationship Specialty Start Date End Date Radha Jamison DO [address] [place] [address] PCP - General Family Medicine 01/26/12 Nelia Sullivan PharmD [address] [place] [address] Pharmacist Internal Medicine 08/31/23 Dalila Carson, JOANN [address] [place] [address] Registered Nurse Family Medicine 12/31/24 Ekta Reynolds 12/31/24 Laurel Monterroso Target Protection SpecialistBusiness Analysis Analyst 02/20/25 Saige Aguilar 09/26/23
--- OUTSIDE RECORDS SUMMARY | 2025-03-06 09:50 | XMS_ITS | Encounter Summary ---
Author Organization [employer] Address [address] [facility] [address] [place] [address] Care Team Providers Care Fixture Designer Name Role Phone Radha Jamison DO Primary Care Provider Abdias Murillo PharmD Unavailable Unavail able Nelia Sullivan PharmD Unavailable Letty Rinaldi Unavailable Dalila Carson RN Unavailable [phone] Ekta Reynolds Unavailable Reason for Visit * Reason Onset Date Comments Durable Medical Equipment 09/08/2022 Encounter Details Date Type Department Care Team (Late st Contact Info) Description 09/08/2022 Telephone [facility] MEDICINE [address] [place], [place] [phone] Radha Jamison DO [address] [place], [place] [phone] Durable Medical Equipment Social History Tobacco Use [...] and advise * Telephone Encounter - Ciera Alli - 09/08/2022 11:30 AM EDT Tc from pt requesting a new script for BP machine. States the one she has right now is not working. Please contact pt at [phone] documented in this encounter Plan of Treatment Upcoming Encounters Date Type Department Care Team (Late st Contact Info) Description 03/07/2025 11:00 AM EST Office Visit [facility] CHC ADULT DENTAL [address] [place] [address] Umang Hampton 03/13/2025 9:30 AM EST Office Visit [facility] OPTOMETRY [address] [place] [address] TarRadha bang, OD [address] [place] [address] 03/17/2025 11:30 AM EST Medication Management [facility] MEDICINE [address] [place] [address] Nelia Sullivan, PharmD [address] [place] [address] documented as of this encounter Goals Goal [...] documented as of this encounter Care Teams Fixture Designer Relationship Specialty Start Date End Date Radha Jamison DO [address] [place] [address] PCP - General Family Medicine 01/26/12 Abdias Murillo, KeithD [address] [place] [address] Pharmacist Internal Medicine 03/21/22 08/30/23 Nelia Sullivan, KeithD [address] [place] [address] Pharmacist Internal Medicine 08/31/23 Letty Rinaldi 12/16/24 12/18/24 Dalila Carson, RN [address] [place] [address] Registered Nurse Family Medicine 12/31/24 Ekta Reynolds 12/31/24 Laurel Monterroso Engraver SealsFamily Development Extension Specialist 02/20/25 Saige Aguilar 09/26/23 documented as of this encounter
--- OUTSIDE RECORDS SUMMARY | 2025-03-06 09:50 | XMS_ITS | Encounter Summary ---
Author Organization [employer] Address [address] [facility] 7t [place] [address] Care Team Providers Care Scoop Machine Operator Name Role Phone Radha Jamison DO Primary Care Provider Abdias Murillo PharmD Unavailable Unavail able Nelia Sullivan PharmD Unavailable [phone] Letty Rinaldi Unavailable Dalila Carson RN Unavailable [phone] Ekta Reynolds Unavailable Encounter Details Date Type Department Care Team (Late st Contact Info) Description 10/10/2022 Telephone [facility] MEDICINE [address] [place], [place] [phone] Radha Jamison DO [address] [place], [place] [phone] Social History Tobacco Use Types Packs/Day Years [...] Description 03/07/2025 11:00 AM EST Office Visit [facility] CHC ADULT DENTAL [address] [place] [address] Umang Hampton 03/13/2025 9:30 AM EST Office Visit [facility] OPTOMETRY [address] [place], [place] [phone] TarRadha bang, OD [address] [place] [address] 03/17/2025 11:30 AM EST Medication Management [facility] MEDICINE [address] [place] [address] Nelia Sullivan PharmD [address] [place] [address] documented as of this encounter Goals Goal Patient Goal Type Associated Problems Recent Progress Patient-Stated? Author Hemoglobin A1c < 7 Result Component 10.1( 12:48 PM EDT) No Abdias Murillo, PharmAdrian documented as of this encounter Visit Diagnoses Not on filedocumented in this encounter Additional Health Concerns Assessment Noted Time PHQ-9 Depression Total Score: 14 023 12:00 PM EST documented as of this encounter Care Teams Scoop Machine Operator Relationship Specialty Start Date End Date Radha Jamison DO [address] [place] [address] PCP - General Family Medicine 01/26/12 Abdias Murillo PharmD [address] [place] [address] Pharmacist Internal Medicine 03/21/22 08/30/23 Nelia Sullivan PharmD [address] [place] [address] Pharmacist Internal Medicine 08/31/23 Letty Rinaldi 12/16/24 12/18/24 Dalila Carson, RN [address] [place] [address] Registered Nurse Family Medicine 12/31/24 Ekta Reynolds 12/31/24 Laurel Monterroso Nitrating Acid MixerNegative Checker 02/20/25 Saige Aguilar 09/26/23 documented as of this encounter
--- OUTSIDE RECORDS SUMMARY | 2025-03-06 09:50 | XMS_ITS | Encounter Summary ---
Author Organization [employer] Address [address] [facility] [address] [place] [address] Care Team Providers Care Learning Coach Name Role Phone Radha Jamison DO Primary Care Provider Abdias Murillo PharmD Unavailable Unavail able Nelia Sullivan PharmD Unavailable [phone] Letty Rinaldi Unavailable Dalila Carson RN Unavailable [phone] Ekta Reynolds Unavailable Reason for Visit * Reason Onset Date Comments Med Refill 10/18/2022 Encounter Details Date Type Department Care Team (Late st Contact Info) Description 10/18/2022 Telephone [facility] MEDICINE [address] [place], [place] [phone] Radha Jamison DO [address] [place], [place] [phone] Med Refill Social History Tobacco Use Types [...] needed re:controlled medication. 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 Any questions, contact pt at [phone] (Malian) * Telephone Encounter - Acacia Chakraborty RN [...] Description 03/07/2025 11:00 AM EST Office Visit [facility] CHC ADULT DENTAL [address] [place] [address] Umang Hampton 03/13/2025 9:30 AM EST Office Visit [facility] OPTOMETRY [address] [place], [place] [phone] Radha Taylor, OD [address] [place] [address] 03/17/2025 11:30 AM EST Medication Management [facility] [address] [place] [address] Nelia Sullivan PharmD [address] [place] [address] documented as of this encounter Goals Goal [...] as of this encounter Care Teams Learning Coach Relationship Specialty Start Date End Date Radha Jamison DO [address] [place] [address] PCP - General Family Medicine 01/26/12 Abdias Murillo PharmD [address] [place] [address] Pharmacist Internal Medicine 03/21/22 08/30/23 Nelia Sullivan PharmD [address] [place] [address] Pharmacist Internal Medicine 08/31/23 Letty Rinaldi 12/16/24 12/18/24 Dalila Carson, JOANN [address] [place] [address] Registered Nurse Family Medicine 12/31/24 Ekta Reynolds 12/31/24 Laurel Monterroso Medical OrderlyImport Coordination And Production Head 02/20/25 Saige Aguilar 09/26/23 documented as of this encounter
--- OUTSIDE RECORDS SUMMARY | 2025-03-06 09:50 | XMS_ITS | Encounter Summary ---
Author Organization [employer] Address [address] [facility] 7t [place] [address] Care Team Providers Care Corporate Vp Advertising & Online Name Role Phone Lisa Jamisonfer Primary Care Provider [phone] Abdias Murillo PharmD Unavailable Unavail able Nelia Sullivan PharmD Unavailable Letty Rinaldi Unavailable Dalila Carson RN Unavailable [phone] Ekta Reynolds Unavailable Reason for Visit * Reason Onset Date Comments Dental Exam 08/24/2023 Encounter Details Date Type Department Care Team (Late st Contact Info) Description 08/24/2023 Telephone [facility] ADULT DENTAL [address] [place] [address] Libby Siddiqui DDS [address] [place], [place] [phone] Dental Exam Social History Tobacco Use Types [...] Visit [facility] CHC ADULT DENTAL [address] [place] [address] Umang Hampton 03/13/2025 9:30 AM EST Office Visit [facility] OPTOMETRY [address] [place] [address] Radha Taylor, OD [address] [place] [address] 03/17/2025 11:30 AM EST Medication Management [facility] MEDICINE [address] [place] [address] Nelia Sullivan PharmD [address] [place] [address] documented as of this encounter Goals Goal [...] as of this encounter Care Teams Corporate Vp Advertising & Online Relationship Specialty Start Date End Date Radha Jamison DO [address] [place] [address] PCP - General Family Medicine 01/26/12 Abdias Murillo, PharmD [address] [place] [address] Pharmacist Internal Medicine 03/21/22 08/30/23 Nelia Sullivan, Camron [address] [place] [address] Pharmacist Internal Medicine 08/31/23 Letty Rinaldi 12/16/24 12/18/24 Dalila Carson, JOANN [address] [place] [address] Registered Nurse Family Medicine 12/31/24 Ekta Reynolds 12/31/24 Laurel Monterroso Research BiologistFinancial Service Professional 02/20/25 Saige Aguilar 09/26/23 documented as of this encounter
--- OUTSIDE RECORDS SUMMARY | 2025-03-06 09:50 | XMS_ITS | Encounter Summary ---
Author Organization [email or web address] Address 75 [facility] 7t [place] [address] Care Team Providers Care Branch General Manager Name Role Phone Radha Jamison DO Primary Care Provider Abdias Murillo PharmD Unavailable Unavail able Nelia Sullivan PharmD Unavailable Letty Rinaldi Unavailable Dalila Carson RN Unavailable [phone] Ekta Reynolds Unavailable Reason for Visit * Reason Comments Med Refill Encounter Details Date Type Department Care Team (Late st Contact Info) Description 08/30/2023 Refill [facility] MEDICINE 230 [place], [place] [phone] Radha Jamison DO 230 [place], [place] [phone] Chronic bilateral low back pain, unspecified whether [...] 03/07/2025 11:00 AM EST Office Visit [facility] CHC ADULT DENTAL [address] [place] [address] Umang Hampton 03/13/2025 9:30 AM EST Office Visit [facility] OPTOMETRY [address] [place] [address] TarRadha bang, OD 267 [place] [address] 03/17/2025 11:30 AM EST Medication Management [facility] MEDICINE 230 [place] [address] Nelia Sullivan PharmD 230 [place] [address] documented as of this encounter Goals Goal [...] documented as of this encounter Care Teams Branch General Manager Relationship Specialty Start Date End Date Radha Jamison DO 230 [place] [address] PCP - General Family Medicine 01/26/12 Abdias Murillo, PharmD 230 [place] [address] Pharmacist Internal Medicine 03/21/22 08/30/23 Nelia Sullivan, PharmD 230 [place] [address] Pharmacist Internal Medicine 08/31/23 Letty Rinaldi 12/16/24 12/18/24 Dalila Carson, JOANN 505 [place] [address] Registered Nurse Family Medicine 12/31/24 Ekta Reynolds 12/31/24 Laurel Monterroso Sports DoctorRecovery Room Nurse 02/20/25 Saige Aguilar 09/26/23 documented as of this encounter
--- OUTSIDE RECORDS SUMMARY | 2025-03-06 09:50 | XMS_ITS | Encounter Summary ---
Author Organization [employer] Address 75 [facility] 7t [place] [address] Care Team Providers Care Researcher Name Role Phone Radha Jamison DO Primary Care Provider Abdias Murillo PharmD Unavailable Unavail able Nelia Sullivan PharmD Unavailable [phone] Letty Rinaldi Unavailable Dalila Carson RN Unavailable [phone] Ekta Reynolds Unavailable Reason for Visit * Reason Comments Med Refill Encounter Details Date Type Department Care Team (Late st Contact Info) Description 08/01/2023 Refill [facility] MEDICINE 230 [place], [place] [phone] Radha Jamison DO 230 [place], [place] [phone] Chronic bilateral low back pain, unspecified whether [...] Description 03/07/2025 11:00 AM EST Office Visit [facility] CHC ADULT DENTAL [address] [place] [address] Umang Hampton 03/13/2025 9:30 AM EST Office Visit [facility] OPTOMETRY 267 [place] [address] TarRadha bang, OD 267 [place] [address] 03/17/2025 11:30 AM EST Medication Management [facility] MEDICINE 230 [place] [address] Nelia Sullivan PharmD 230 [place] [address] documented as of this encounter Goals Goal Patient Goal Type Associated Problems Recent Progress Patient-Stated? Author Hemoglobin A1c < 7 Result Component 10.1( 12:48 PM EDT) No Abdias Murillo, Camron documented as of this encounter Visit Diagnoses Diagnosis Chronic bilateral low back pain, unspecified whether sciatica present documented in this encounter Additional Health Concerns Assessment Noted Time PHQ-9 Depression Total Score: 4 11/09/19 23 11:27 AM EDT documented as of this encounter Care Teams Researcher Relationship Specialty Start Date End Date Radha Jamison DO 230 [place] [address] PCP - General Family Medicine 01/26/12 Abdias Murillo PharmD [address] [place] [address] Pharmacist Internal Medicine 03/21/22 08/30/23 Nelia Sullivan PharmD [address] [place] [address] Pharmacist Internal Medicine 08/31/23 Letty Rinaldi 12/16/24 12/18/24 Dalila Carson, JOANN [address] [place] [address] Registered Nurse Family Medicine 12/31/24 Ekta Reynolds 12/31/24 Laurel Monterroso Repair WeaverWeekend Anchor 02/20/25 Saige Aguilar 09/26/23 documented as of this encounter
--- OUTSIDE RECORDS SUMMARY | 2025-03-06 09:50 | XMS_ITS | Encounter Summary ---
Author Organization [employer] Address 75 [facility] 7t [place] [address] Care Team Providers Care Sewer And Cutter Finger Buff Material Name Role Phone Radha Jamison DO Primary Care Provider Abdias Murillo PharmD Unavailable Unavail able Nelia Sullivan PharmD Unavailable Letty Rinaldi Unavailable Dalila Carson RN Unavailable [phone] Ekta Reynolds Unavailable Reason for Visit * Reason Comments Med Refill Encounter Details Date Type Department Care Team (Late st Contact Info) Description 12/21/2022 Refill [facility] MEDICINE 230 [place], [place] [phone] Radha Jamison DO 230 [place], [place] [phone] Chronic bilateral low back pain, unspecified whether [...] [facility]ULT D[facility]AL [address] [place] [address] Umang Hampton 03/13/2025 9:30 AM EST Office Visit [facility] OPTOMETRY [address] [place] [address] TarkaRadha, OD 267 [place] [address] 03/17/2025 11:30 AM EST Medication Management [facility] MEDICINE 230 [place] [address] Nelia Sullivan PharmD [address] [place] [address] documented as of this encounter Goals Goal [...] documented as of this encounter Care Teams Sewer And Cutter Finger Buff Material Relationship Specialty Start Date End Date Radha Jamison DO [address] [place] [address] PCP - General Family Medicine 01/26/12 Abdias Murillo, PharmD [address] [place] [address] Pharmacist Internal Medicine 03/21/22 08/30/23 Nelia Sullivan, KeithD 230 [place] [address] Pharmacist Internal Medicine 08/31/23 Letty Rinaldi 12/16/24 12/18/24 Dalila Carson, JOANN [address] [place] [address] Registered Nurse Family Medicine 12/31/24 Ekta Reynolds 12/31/24 Laurel Monterroso Window And Door InstallerFish Butcher 02/20/25 Saige Aguilar 09/26/23 documented as of this encounter
--- OUTSIDE RECORDS SUMMARY | 2025-03-06 09:50 | XMS_ITS | Encounter Summary ---
Author Organization [email or web address] Address 75 [facility] 7[address] [place] [address] Care Team Providers Care Metal Stud Framer Name Role Phone Radha Jamison DO Primary Care Provider Abdias Murillo PharmD Unavailable Unavail able Nelia Sullivan PharmD Unavailable [phone] Letty Rinaldi Unavailable Dalila Carson RN Unavailable [phone] Ekta Reynolds Unavailable Reason for Visit * Reason Onset Date Comments Med Refill 10/24/2022 Encounter Details Date Type Department Care Team (Late st Contact Info) Description 10/24/2022 Telephone [facility] MEDICINE 230 [place], [place] [phone] Radha Jamison DO 230 [place], [place] [phone] Med Refill Social History Tobacco Use Types [...] Description 03/07/2025 11:00 AM EST Office Visit [facility] CHC ADULT DENTAL [address] [place] [address] Umang Hampton 03/13/2025 9:30 AM EST Office Visit [facility] OPTOMETRY [address] [place] [address] Tarka, Radha, OD 267 [place] [address] 03/17/2025 11:30 AM EST Medication Management [facility] MEDICINE 230 [place] [address] Nelia Sullivan, PharmD 230 [place] [address] documented as of this encounter Goals Goal [...] as of this encounter Care Teams Metal Stud Framer Relationship Specialty Start Date End Date Radha Jamison DO 230 [place] [address] PCP - General Family Medicine 01/26/12 Abdias Murillo, PharmD 230 [place] [address] Pharmacist Internal Medicine 03/21/22 08/30/23 Nelia Sullivan, KeithD 230 [place] [address] Pharmacist Internal Medicine 08/31/23 Letty Rinaldi 12/16/24 12/18/24 Dalila Carson, JOANN [address] [place] [address] Registered Nurse Family Medicine 12/31/24 Ekta Reynolds 12/31/24 Laurel Monterroso Industrial Green Systems DesignerCasino Accountant 02/20/25 Saige Aguilar 09/26/23 documented as of this encounter
--- OUTSIDE RECORDS SUMMARY | 2025-03-06 09:50 | XMS_ITS | Encounter Summary ---
Author Organization [employer] Address 75 [facility] 7t [place] [address] Care Team Providers Care Solaris Administrator Name Role Phone Radha Jamison DO Primary Care Provider [phone] Abdias Murillo PharmD Unavailable Unavail able Nelia Sullivan PharmD Unavailable Letty Rinaldi Unavailable Dalila Carson RN Unavailable [phone] Ekta Reynolds Unavailable Reason for Visit * Reason Comments Med Refill Encounter Details Date Type Department Care Team (Late st Contact Info) Description 11/08/2022 Refill [facility] MEDICINE 230 [place], [place] [phone] Radha Jamison DO 230 [place] [address] Social History Tobacco Use Types Packs/Day Years [...] Description 03/07/2025 11:00 AM EST Office Visit [facility] CHC ADULT DENTAL [address] [place] [address] Umang Hampton 03/13/2025 9:30 AM EST Office Visit [facility] OPTOMETRY [address] [place] [address] Radha Taylor, OD 267 [place] [address] 03/17/2025 11:30 AM EST Medication Management [facility] MEDICINE 230 [place] [address] Nelia Sullivan PharmD 230 [place] [address] documented as of this encounter Goals Goal [...] documented as of this encounter Care Teams Solaris Administrator Relationship Specialty Start Date End Date Radha Jamison DO [address] [place] [address] PCP - General Family Medicine 01/26/12 Abdias Murillo PharmD [address] [place] [address] Pharmacist Internal Medicine 03/21/22 08/30/23 Nelia Sullivan PharmD [address] [place] [address] Pharmacist Internal Medicine 08/31/23 Letty Rinaldi 12/16/24 12/18/24 Dalila Carson, JOANN [address] [place] [address] MAR[place] Chan [address] Registered Nurse Family Medicine 12/31/24 Ekta Reynolds 12/31/24 Laurel Monterroso Cleaner And PresserIngot Passer 02/20/25 Saige Aguilar 09/26/23 documented as of this encounter
--- OUTSIDE RECORDS SUMMARY | 2025-03-06 09:50 | XMS_ITS | Encounter Summary ---
Author Organization [employer] Address 75 [facility] 7t [place] [address] Care Team Providers Care Business Continuity Coordinator Name Role Phone Radha Jamison DO Primary Care Provider Abdias Murillo PharmD Unavailable Unavail able Nelia Sullivan PharmD Unavailable Letty Rinaldi Unavailable Dalila Carson RN Unavailable [phone] Ekta Reynolds Unavailable Reason for Visit * Reason Comments Med Refill Encounter Details Date Type Department Care Team (Late st Contact Info) Description 10/25/2022 Refill [facility] MEDICINE 230 [place], [place] [phone] Radha Jamison DO 230 [place] [address] Chronic bilateral low back pain, unspecified whether [...] Description 03/07/2025 11:00 AM EST Office Visit [facility] CHC ADULT DENTAL 505 [place] [address] Umang Hampton 03/13/2025 9:30 AM EST Office Visit [facility] OPTOMETRY 267 [place] [address] Radha Taylor, OD 267 [place] [address] 03/17/2025 11:30 AM EST Medication Management [facility] MEDICINE 230 [place] [address] Nelia Sullivan PharmD [address] [place] [address] documented as of this encounter Goals Goal [...] as of this encounter Care Teams Business Continuity Coordinator Relationship Specialty Start Date End Date Radha Jamison DO [address] [place] [address] PCP - General Family Medicine 01/26/12 Abdias Murillo, PharmD [address] [place] [address] Pharmacist Internal Medicine 03/21/22 08/30/23 Nelia Sullivan, PharmD 230 [place] [address] Pharmacist Internal Medicine 08/31/23 Letty Rinaldi 12/16/24 12/18/24 Dalila Carson RN 505 [place] [address] Registered Nurse Family Medicine 12/31/24 Ekta Reynolds 12/31/24 Laurel Monterroso Gauge And Weigh Machine AdjusterVehicle Leasing And Rental Manager 02/20/25 Saige Aguilar 09/26/23 documented as of this encounter
--- OUTSIDE RECORDS SUMMARY | 2025-03-06 09:51 | XMS_ITS | Encounter Summary ---
Author Organization [employer] Address 75 [facility] 7t [place] [address] Care Team Providers Care Veterans Service Representative Name Role Phone Radha Jamison DO Primary Care Provider Nelia Sullivan PharmD Unavailable Letty Rinaldi Unavailable Dalila Carson RN Unavailable [phone] Ekta Reynolds Unavailable Reason for Visit * Reason Comments Med Refill Encounter Details Date Type Department Care Team (Late st Contact Info) Description 10/30/2023 Refill [facility] MEDICINE 230 [place], [place] [phone] Radha Jamison DO 230 [place], [place] [phone] Chronic bilateral low back pain, unspecified whether [...] [facility] [address] [place] [address] Umang Hampton 03/13/2025 9:30 AM EST Office Visit [facility] OPTOMETRY 267 [place] [address] TarRadha bang, OD 267 [place] [address] 03/17/2025 11:30 AM EST Medication Management [facility] MEDICINE 230 [place] [address] Nelia Sullivan, PharmD 230 [place] [address] documented as of this encounter Goals Goal [...] documented as of this encounter Care Teams Veterans Service Representative Relationship Specialty Start Date End Date Radha Jamison DO 230 [place] [address] PCP - General Family Medicine 01/26/12 Nelia Sullivan PharmD 230 [place] [address] Pharmacist Internal Medicine 08/31/23 Letty Rinaldi 12/16/24 12/18/24 Dalila Carson, JOANN 505 [place] [address] Registered Nurse Family Medicine 12/31/24 Ekta Reynolds 12/31/24 Laurel Monterroso Recruitment Advertising ManagerStatement Distribution Clerk 02/20/25 Saige Aguilar 09/26/23 documented as of this encounter
--- OUTSIDE RECORDS SUMMARY | 2025-03-06 09:51 | XMS_ITS | Encounter Summary ---
Author Organization [employer] Address 75 [facility] 7t [place] [address] Care Team Providers Care Food And Nutrition Services Assistant Name Role Phone Radha Jamison DO Primary Care Provider Abdias Murillo PharmD Unavailable Unavail able Nelia Sullivan PharmD Unavailable [phone] Letty Rinaldi Unavailable Dalila Carson RN Unavailable [phone] Ekta Reynolds Unavailable Reason for Visit * Reason Comments Med Refill Encounter Details Date Type Department Care Team (Late st Contact Info) Description 02/14/2023 Refill [facility] MEDICINE 230 [place], [place] [phone] Radha Jamison DO 230 [place], [place] [phone] Chronic bilateral low back pain, unspecified whether [...] Description 03/07/2025 11:00 AM EST Office Visit [facility] CHC ADULT DENTAL [address] [place] [address] Umang Hampton 03/13/2025 9:30 AM EST Office Visit [facility] OPTOMETRY [address] [place] [address] TarkaRadha, OD 267 [place] [address] 03/17/2025 11:30 AM EST Medication Management [facility] MEDICINE 230 [place] [address] Nelia Sullivan PharmD 230 [place] [address] documented as of this encounter Goals Goal [...] encounter Care Teams Food And Nutrition Services Assistant Relationship Specialty Start Date End Date Radha Jamison DO 230 [place] [address] PCP - General Family Medicine 01/26/12 Abdias Murillo, PharmD 230 [place] [address] Pharmacist Internal Medicine 03/21/22 08/30/23 Nelia Sullivan, KeithD 230 [place] [address] Pharmacist Internal Medicine 08/31/23 Letty Rinaldi 12/16/24 12/18/24 Dalila Carson, JOANN [address] [place] [address] Registered Nurse Family Medicine 12/31/24 Ekta Reynolds 12/31/24 Laurel Monterroso Plasterer Spray GunTennis Ball Coverer Hand 02/20/25 Saige Aguilar 09/26/23 documented as of this encounter
--- OUTSIDE RECORDS SUMMARY | 2025-03-06 09:51 | XMS_ITS | Encounter Summary ---
Author Organization [employer] Address 75 [facility] 7t [place] [address] Care Team Providers Care Algorithm Developer Name Role Phone Radha Jamison DO Primary Care Provider Abdias Murillo PharmD Unavailable Unavail able Nelia Sullivan PharmD Unavailable Letty Rinaldi Unavailable Dalila Carson RN Unavailable [phone] Ekta Reynolds Unavailable Reason for Visit * Reason Comments Med Refill Encounter Details Date Type Department Care Team (Late st Contact Info) Description 07/20/2022 Refill [facility] MOBILE VACCINE CLINIC 230 [place], [place] [phone] Radha Jamison DO 230 [place] [address] Hypertension, unspecified type Social History Tobacco Use [facility] [address] [place] [address] Jayden Hamptonouard 03/13/2025 9:30 AM EST Office Visit [facility] OPTOMETRY 267 [place] [address] Tarka Radha, OD 267 [place] [address] 03/17/2025 11:30 AM EST Medication Management [facility] MEDICINE 230 [place] [address] Nelia Sullivan PharmD 230 [place] [address] documented as of this encounter Goals Goal [...] documented as of this encounter Care Teams Algorithm Developer Relationship Specialty Start Date End Date Radha Jamison DO [address] [place] [address] PCP - General Family Medicine 01/26/12 Abdias Murillo, PharmD [address] [place] [address] Pharmacist Internal Medicine 03/21/22 08/30/23 Nelia Sullivan, Camron [address] [place] [address] Pharmacist Internal Medicine 08/31/23 Letty Rinaldi 12/16/24 12/18/24 Dalila Carson, JOANN [address] [place] [address] Registered Nurse Family Medicine 12/31/24 Ekta Reynolds 12/31/24 Laurel Monterroso Patient ManagerStore Custodian 02/20/25 Saige Aguilar 09/26/23 documented as of this encounter
--- OUTSIDE RECORDS SUMMARY | 2025-03-06 09:51 | XMS_ITS | Encounter Summary ---
Author Organization [employer] Address 75 [facility] 7t [place] [address] Care Team Providers Care Facilities Specialist Name Role Phone Radha Jamison DO Primary Care Provider Abdias Murillo PharmD Unavailable Unavail able Nelia Sullivan PharmD Unavailable Letty Rinaldi Unavailable Dalila Carson RN Unavailable [phone] Ekta Reynolds Unavailable Reason for Visit * Reason Comments Med Refill Encounter Details Date Type Department Care Team (Late st Contact Info) Description 12/20/2022 Refill [facility] MEDICINE 230 [place], [place] [phone] Radha Jamison DO 230 [place], [place] [phone] Chronic bilateral low back pain, unspecified whether [...] Description 03/07/2025 11:00 AM EST Office Visit [facility] CHC ADULT DENTAL [address] [place] [address] Umang Hampton 03/13/2025 9:30 AM EST Office Visit [facility] OPTOMETRY [address] [place] [address] TarkaRadha, OD 267 [place] [address] 03/17/2025 11:30 AM EST Medication Management [facility] MEDICINE [address] [place] [address] Nelia Sullivan PharmD 230 [place] [address] documented as of this encounter Goals Goal [...] documented as of this encounter Care Teams Facilities Specialist Relationship Specialty Start Date End Date Radha Jamison DO 230 [place] [address] PCP - General Family Medicine 01/26/12 Abdias Murillo, PharmD 230 [place] [address] Pharmacist Internal Medicine 03/21/22 08/30/23 Nelia Sullivan, KeithD 230 [place] [address] Pharmacist Internal Medicine 08/31/23 Letty Rinaldi 12/16/24 12/18/24 Dalila Carson, JOANN [address] [place] [address] Registered Nurse Family Medicine 12/31/24 Ekta Reynolds 12/31/24 Laurel Monterroso Treatment ManagerLivestock Counter 02/20/25 Saige Aguilar 09/26/23 documented as of this encounter
--- OUTSIDE RECORDS SUMMARY | 2025-03-06 09:51 | XMS_ITS | Encounter Summary ---
Author Organization [employer] Address 75 [facility] 7t [place] [address] Care Team Providers Care Cardiovascular Radiologic Technologist Name Role Phone Radha Jamison DO Primary Care Provider Abdias Murillo PharmD Unavailable Unavail able Nelia Sullivan PharmD Unavailable Letty Rinaldi Unavailable Dalila Carson RN Unavailable [phone] Ekta Reynolds Unavailable Reason for Visit * Reason Comments Med Refill Encounter Details Date Type Department Care Team (Late Contact Info) Description 01/31/2022 Refill [facility] MOBILE VACCINE CLINIC 230 [place] [address] Radha Jamison DO 230 [place] [address] Chronic bilateral low back pain, unspecified whether [...] Description 03/07/2025 11:00 AM EST Office Visit [facility] CHC ADULT DENTAL 505 [place] [address] Umang Hampton 03/13/2025 9:30 AM EST Office Visit [facility] OPTOMETRY [address] [place] [address] Radha Taylor, OD 267 [place] [address] 03/17/2025 11:30 AM EST Medication Management [facility] MEDICINE 230 [place] [address] Nelia Sullivan PharmD 230 [place] [address] documented as of this encounter Visit Diagnoses Diagnosis Chronic bilateral low back pain, unspecified whether sciatica present documented in this encounter Care Teams Cardiovascular Radiologic Technologist Relationship Specialty Start Date End Date Radha Jamison DO 230 [place] [address] PCP - General Family Medicine 01/26/12 Abdias Murillo, KeithD 230 [place], [place] Pharmacist Internal Medicine 03/21/22 08/30/23 Nelia Sullivan, PharmD 230 [place] [address] Pharmacist Internal Medicine 08/31/23 Letty Rinaldi 12/16/24 12/18/24 Dalila Carson, JOANN 505 [place] [address] Registered Nurse Family Medicine 12/31/24 Ekta Reynolds 12/31/24 Laurel Monterroso Terminal Computer OperatorCage Tender 02/20/25 Saige Aguilar 09/26/23 documented as of this encounter
--- OUTSIDE RECORDS SUMMARY | 2025-03-06 09:51 | XMS_ITS | Encounter Summary ---
Author Organization [employer] Address 75 [facility] 7t [place] [address] Care Team Providers Care Fence Installer Foreman Name Role Phone Radha Jamison DO Primary Care Provider [phone] Nelia Sullivan PharmD Unavailable [phone] Dalila Carson RN Unavailable Ekta Reynolds Unavailable Reason for Visit * Reason Comments Care Management C3CM- initial assess ment/ enrollment. lvm Encounter Details Date Type Department Care Team (Late st Contact Info) Description 03/05/2025 Patient Outreach [facility] MEDICINE [address] [place] [address] Radha Jamison DO [address] [place] [address] Care Management (C3- initial assessment/ enrollment. lv) Social History Tobacco Use Types Packs/Day Years [...] Progress Notes * Dalila Carson RN - 03/05/2025 10:04 AM EST CM Dalila Carson RN, placed outbound call to patient for agreed upon assessment time. No answer atthis time, left message requesting call back at [phone]. CM/CHW will attempt contact with patient to reschedule missed initial assessment. documented in this encounter Plan of Treatment Upcoming Encounters Date Type Department Care Team (Late st Contact Info) Description 03/07/2025 11:00 AM EST Office Visit [facility] ADULT DENTAL [address] [place] [address] Umang Hampton 03/13/2025 9:30 AM EST Office Visit [facility] OPTOMETRY [address] [place] [address] Radha Taylor, OD [address] [place] [address] 03/17/2025 11:30 AM EST Medication Management [facility] MEDICINE [address] [place] [address] PuNelia cortes, PharmD [address] [place] [address] documented as of this encounter Goals Goal [...] Care Plan Weekly blood pressure task No Bryan, Audelia, RN Weekly blood pressure task Care Plan [...] Weekly blood pressure task No Viera, Tatum, TUGBOAT CAPTAIN Weekly blood pressure task Care Plan Weekly blood pressure task No Viera, Tatum, TUGBOAT CAPTAIN Weekly blood pressure task Care Plan Weekly blood pressure task No Viera, Tatum, TUGBOAT CAPTAIN Patient has diabetic eye disease Care Plan Patient has diabetic eye disease No Viera, Tatum, TUGBOAT CAPTAIN Patient has diabetic eye disease Care Plan Patient has diabetic eye disease No Viera, Tatum, TUGBOAT CAPTAIN Patient has diabetic eye disease Care Plan Patient has diabetic eye disease No Viera, Tatum, TUGBOAT CAPTAIN Patient has chronic kidney disease Care Plan Patient has chronic kidney disease No Viera, Tatum, TUGBOAT CAPTAIN Patient has chronic kidney disease Care Plan Patient has chronic kidney disease No Viera, Tatum, TUGBOAT CAPTAIN Patient has chronic kidney disease Care Plan Patient has chronic kidney disease No Viera, Tatum, TUGBOAT CAPTAIN Weekly blood pressure task Care Plan Weekly [...] chronic kidney disease No Radha Miranda, PharmD Patient has chronic kidney disease Care Plan Patient has chronic kidney disease No Radha Miranda, PharmD Weekly blood pressure [...] Plan Weekly blood pressure task No Jose RafaelDalila, TUGBOAT CAPTAIN Weekly blood pressure task Care Plan Weekly blood pressure task No Jose RafaelDalila atkins, TUGBOAT CAPTAIN Weekly blood pressure task Care Plan Weekly blood pressure task No Jose RafaelSabinaDalila, TUGBOAT CAPTAIN Patient has diabetic eye disease Care Plan Patient has diabetic eye disease No Jose RafaelSabinaDalila, TUGBOAT CAPTAIN Patient has diabetic eye disease Care Plan Patient has diabetic eye disease No Jose RafaelSabinaDalila, TUGBOAT CAPTAIN Patient has diabetic eye disease Care Plan Patient has diabetic eye disease No Jose RafaelSabinaDalila, TUGBOAT CAPTAIN Patient has chronic kidney disease Care Plan Patient has chronic kidney disease No Jose RafaelSabinaDalila, TUGBOAT CAPTAIN Patient has chronic kidney disease Care Plan Patient has chronic kidney disease No Jose RafaelDalila, TUGBOAT CAPTAIN Patient has chronic kidney disease Care Plan Patient has chronic kidney disease No Jose RafaelDalila, TUGBOAT CAPTAIN Weekly blood pressure task Care Plan Weekly [...] Care Plan Weekly blood pressure task No Colon Wai Geovanna Patient has diabetic eye disease Care Plan Patient has diabetic eye disease No Colon Wai Geovanna Patient has diabetic eye disease Care Plan [...] 03/05/2025 Patient has chronic kidney disease 03/05/2025 Assessment Noted Time PHQ-9 Depression Total Score: 16 025 2:10 PM EDT documented as of this encounter Care Teams Fence Installer Foreman Relationship Specialty Start Date End Date Radha Jamison DO [address] [place] [address] PCP - General Family Medicine 01/26/12 Nelia Sullivan PharmD [address] [place] [address] Pharmacist Internal Medicine 08/31/23 Dalila Carson RN [address] [place] [address] Registered Nurse Family Medicine 12/31/24 Ekta Reynolds 12/31/24 Laurel Monterroso Chip FrierGalley Worker 02/20/25 Saige Aguilar 09/26/23 documented as of this encounter
--- OUTSIDE RECORDS SUMMARY | 2025-03-06 09:51 | XMS_ITS | Encounter Summary ---
Author Organization [employer] Address [address] [facility] 7t [place] [address] Care Team Providers Care Contact Officer Name Role Phone Radha Jamison DO Primary Care Provider Abdias Murillo PharmD Unavailable Unavail able Nelia Sullivan PharmD Unavailable Letty Rinaldi Unavailable Dalila Carson RN Unavailable [phone] Ekta Reynolds Unavailable Reason for Visit * Reason Comments Med Refill Encounter Details Date Type Department Care Team (Late st Contact Info) Description 01/24/2022 Telephone [facility] CHC MED & PEDS [address] [place] [address] Radha Jamison DO [address] [place] [address] Med Refill Social History Tobacco Use Types [...] Description 03/07/2025 11:00 AM EST Office Visit [facility] CHC ADULT DENTAL [address] [place] [address] Umang Hapmton 03/13/2025 9:30 AM EST Office Visit [facility] OPTOMETRY [address] [place] [address] TarRadha bang, OD [address] [place] [address] 03/17/2025 11:30 AM EST Medication Management [facility] MEDICINE [address] [place] [address] Nelia Sullivan PharmD [address] [place] [address] documented as of this encounter Visit Diagnoses Diagnosis Chronic bilateral low back pain, unspecified whether sciatica present documented in this encounter Care Teams Contact Officer Relationship Specialty Start Date End Date Radha Jamison DO [address] [place] [address] PCP - General Family Medicine 01/26/12 Abdias Murillo PharmD [address] [place] [address] Pharmacist Internal Medicine 03/21/22 08/30/23 Nelia Sullivan PharmD [address] [place] [address] Pharmacist Internal Medicine 08/31/23 Letty Rinaldi 12/16/24 12/18/24 Dalila Carson, RN [address] [place] [address] Registered Nurse Family Medicine 12/31/24 Ekta Reynolds 12/31/24 Laurel Monterroso Medical Records ClerkDinkey Engine Mechanic 02/20/25 Saige Aguilar 09/26/23 documented as of this encounter
--- OUTSIDE RECORDS SUMMARY | 2025-03-06 09:51 | XMS_ITS | Encounter Summary ---
Author Organization [employer] Address 75 [facility] 7t [place] [address] Care Team Providers Care Grades 9 12 Tutor Name Role Phone Radha Jamison DO Primary Care Provider [phone] Nelia Sullivan PharmD Unavailable Letty Rinaldi Unavailable Dalila Carson RN Unavailable [phone] Ekta Reynolds Unavailable Reason for Visit * Reason Comments Med Refill Encounter Details Date Type Department Care Team (Late st Contact Info) Description 11/21/2023 Refill [facility] MEDICINE [address] [place], [place] [phone] Radha Jamison DO 230 [place], [place] [phone] Chronic bilateral low back pain, unspecified whether [...] Description 03/07/2025 11:00 AM EST Office Visit [facility] CHC ADULT DENTAL [address] [place] [address] Umang Hampton 03/13/2025 9:30 AM EST Office Visit [facility] OPTOMETRY [address] [place] [address] TarRadha bang, OD [address] [place] [address] 03/17/2025 11:30 AM EST Medication Management [facility] MEDICINE [address] [place] [address] Nelia Sullivan, PharmD [address] [place] [address] documented as of this encounter Goals Goal [...] documented as of this encounter Care Teams Grades 9 12 Tutor Relationship Specialty Start Date End Date Radha Jamison DO [address] [place] [address] PCP - General Family Medicine 01/26/12 Nelia Sullivan PharmD [address] [place] [address] Pharmacist Internal Medicine 08/31/23 Letty Rinaldi 12/16/24 12/18/24 Dalila Carson, JOANN [address] [place] [address] Registered Nurse Family Medicine 12/31/24 Ekta Reynolds 12/31/24 Laurel oMnterroso Kennel SupervisorRn Lpn Cna 02/20/25 Saige Aguilar 09/26/23 documented as of this encounter
--- OUTSIDE RECORDS SUMMARY | 2025-03-06 09:51 | XMS_ITS | Encounter Summary ---
Author Organization [employer] Address [address] [facility] 7t [place] [address] Care Team Providers Care Speech/Language Therapist Name Role Phone Radha Jamison DO Primary Care Provider Nelia Sullivan PharmD Unavailable Letty Rinaldi Unavailable Dalila Carson RN Unavailable [phone] Ekta Reynolds Unavailable Encounter Details Date Type Department Care Team (Late st Contact Info) Description 01/30/2024 Telephone [facility] CHC MED & PEDS [address] [place] [address] Radha Jamison DO 230 [place], [place] [phone] Social History Tobacco Use Types Packs/Day Years [...] Description 03/07/2025 11:00 AM EST Office Visit [facility] CHC ADULT DENTAL [address] [place] [address] Umang Hampton 03/13/2025 9:30 AM EST Office Visit [facility] OPTOMETRY [address] [place] [address] Radha Taylor, OD [address] [place] [address] 03/17/2025 11:30 AM EST Medication Management [facility] MEDICINE [address] [place] [address] Puia, Nelia, PharmD [address] [place] [address] documented as of this encounter Goals Goal [...] documented as of this encounter Care Teams Speech/Language Therapist Relationship Specialty Start Date End Date Radha Jamison DO [address] [place] [address] PCP - General Family Medicine 01/26/12 Puia, Nelia, PharmD [address] [place] [address] Pharmacist Internal Medicine 08/31/23 Letty Rinaldi 12/16/24 12/18/24 Dalila Carson, JOANN [address] [place] [address] Registered Nurse Family Medicine 12/31/24 Ekta Reynolds 12/31/24 Laurel Monterroso Motivational SpeakerJailer 02/20/25 Saige Aguilar 09/26/23 documented as of this encounter
--- OUTSIDE RECORDS SUMMARY | 2025-03-06 09:51 | XMS_ITS | Encounter Summary ---
Author Organization [employer] Address 75 [facility] 7t [place] [address] Care Team Providers Care Metal Trimmer Name Role Phone Radha Jamison DO Primary Care Provider Abdias Murillo PharmD Unavailable Unavail able Nelia Sullivan PharmD Unavailable [phone] Letty Rinaldi Unavailable Dalila Carson RN Unavailable [phone] Ekta Reynolds Unavailable Reason for Visit * Reason Onset Date Comments Appointment Request 03/09/2023 Encounter Details Date Type Department Care Team (Late st Contact Info) Description 03/09/2023 Telephone [facility] MEDICINE [address] [place], [place] [phone] Radha Jamison DO [address] [place], [place] [phone] Appointment Request Social History Tobacco Use Types [...] denied any concerns. Please contact pt at [phone] documented in this encounter Plan of Treatment Upcoming Encounters Date Type Department Care Team (Late st Contact Info) Description 03/07/2025 11:00 AM EST Office Visit [facility] CHC ADULT DENTAL [address] [place] [address] Umang Hampton 03/13/2025 9:30 AM EST Office Visit [facility] OPTOMETRY [address] [place] [address] TarRadha bang, OD [address] [place] [address] 03/17/2025 11:30 AM EST Medication Management [facility] MEDICINE [address] [place] [address] Nelia Sullivan, PharmD [address] [place] [address] documented as of this encounter Goals Goal [...] as of this encounter Care Teams Metal Trimmer Relationship Specialty Start Date End Date Radha Jamison DO [address] [place] [address] PCP - General Family Medicine 01/26/12 Abdias Murillo, PharmD [address] [place] [address] Pharmacist Internal Medicine 03/21/22 08/30/23 Nelia Sullivan PharmD [address] [place] [address] Pharmacist Internal Medicine 08/31/23 Letty Rinaldi 12/16/24 12/18/24 Dalila Carson, JOANN [address] [place] [address] Registered Nurse Family Medicine 12/31/24 Ekta Reynolds 12/31/24 Laurel Monterroso Brand DesignerHadoop Developer 02/20/25 Saige Aguilar 09/26/23 documented as of this encounter
--- OUTSIDE RECORDS SUMMARY | 2025-03-06 09:51 | XMS_ITS | Encounter Summary ---
Author Organization [employer] Address 75 [facility] 7t [place] [address] Care Team Providers Care Senior Librarian Name Role Phone Radha Jamison DO Primary Care Provider [phone] Abdias Murillo PharmD Unavailable Unavail able Nelia Sullivan PharmD Unavailable Letty Rinaldi Unavailable Dalila Carson RN Unavailable [phone] Ekta Reynolds Unavailable Reason for Visit * Reason Comments Med Refill Encounter Details Date Type Department Care Team (Late st Contact Info) Description 03/14/2023 Refill [facility] MEDICINE [address] [place], [place] [phone] Radha Jamison DO [address] [place], [place] [phone] Chronic bilateral low back pain, unspecified whether [...] Description 03/07/2025 11:00 AM EST Office Visit [facility] CHC ADULT DENTAL [address] [place] [address] Umang Hampton 03/13/2025 9:30 AM EST Office Visit [facility] OPTOMETRY [address] [place] [address] TarkaRadha, OD 267 [place] [address] 03/17/2025 11:30 AM EST Medication Management [facility] MEDICINE [address] [place] [address] Nelia Sullivan PharmD [address] [place] [address] documented as of this encounter Goals Goal [...] as of this encounter Care Teams Senior Librarian Relationship Specialty Start Date End Date Radha Jamison DO [address] [place] [address] PCP - General Family Medicine 01/26/12 Abdias Murillo, PharmD [address] [place] [address] Pharmacist Internal Medicine 03/21/22 08/30/23 Nelia Sullivan, KeithD [address] [place] [address] Pharmacist Internal Medicine 08/31/23 Letty Rinaldi 12/16/24 12/18/24 Dalila Carson, JOANN [address] [place] [address] Registered Nurse Family Medicine 12/31/24 Ekta Reynolds 12/31/24 Laurel Monterroso School Lunch ManagerJeweler Apprentice 02/20/25 Saige Aguilar 09/26/23 documented as of this encounter
--- OUTSIDE RECORDS SUMMARY | 2025-03-06 09:51 | XMS_ITS | Encounter Summary ---
Author Organization [employer] Address 75 [facility] 7t [place] [address] Care Team Providers Care Machinist Set Up Name Role Phone ShaheenRadha Primary Care Provider Abdias Murillo PharmD Unavailable Unavail able Nelia Sullivan PharmD Unavailable [phone] Letty Rinaldi Unavailable Dalila Carson RN Unavailable [phone] Ekta Reynolds Unavailable Reason for Visit * Reason Onset Date Comments Med Refill Appointment 05/15/2022 Re: her appt for today as [id number] @ 10:15 am. & No active phone # at this time. Encounter Details Date Type Department Care Team (Late st Contact Info) Description 05/15/2022 Refill [facility] MEDICINE 230 [place], [place] [phone] Abdias Murillo, PharmD Type 2 diabetes mellitus with other specified complication, with long-term current use of insulin ([facility]) Social History Tobacco Use Types [...] pt regarding her appt for today as [id number] @ 10:15 am. And her phone # is not active at this time. documented in this encounter Plan of Treatment Upcoming Encounters Date Type Department Care Team (Late st Contact Info) Description 03/07/2025 11:00 AM EST Office Visit [facility] CHC ADULT DENTAL [address] [place] [address] Umang Hampton 03/13/2025 9:30 AM EST Office Visit [facility] OPTOMETRY [address] [place] [address] Tarka, Radha, OD [address] [place] [address] 03/17/2025 11:30 AM EST Medication Management [facility] MEDICINE [address] [place] [address] Nelia Sullivan, PharmD [address] [place] [address] documented as of this encounter Goals Goal [...] as of this encounter Care Teams Machinist Set Up Relationship Specialty Start Date End Date Radha Jamison DO [address] [place] [address] PCP - General Family Medicine 01/26/12 Abdias Murillo, KeithD [address] [place] [address] Pharmacist Internal Medicine 03/21/22 08/30/23 Nelia Sullivan PharmD [address] [place] [address] Pharmacist Internal Medicine 08/31/23 Letty Rinaldi 12/16/24 12/18/24 Dalila Carson, JOANN [address] [place] [address] Registered Nurse Family Medicine 12/31/24 Ekta Reynolds 12/31/24 Laurel Monterroso Rubber ChemistEntry Level Management 02/20/25 Saige Aguilar 09/26/23 documented as of this encounter
--- OUTSIDE RECORDS SUMMARY | 2025-03-06 09:51 | XMS_ITS | Encounter Summary ---
Author Organization [employer] Address 75 [facility] 7t [place] [address] Care Team Providers Care Voltage Tester Name Role Phone Radha Jamison DO Primary Care Provider Abdias Murillo PharmD Unavailable Unavail able Nelia Sullivan PharmD Unavailable Letty Rinaldi Unavailable Dalila Carson RN Unavailable [phone] Ekta Reynolds Unavailable Reason for Visit * Reason Comments Med Refill Encounter Details Date Type Department Care Team (Late st Contact Info) Description 02/15/2023 Refill [facility] MEDICINE 230 [place], [place] [phone] Radha Jamison DO 230 [place], [place] [phone] Chronic bilateral low back pain, unspecified whether [...] Description 03/07/2025 11:00 AM EST Office Visit [facility] CHC ADULT DENTAL [address] [place] [address] Umang Hampton 03/13/2025 9:30 AM EST Office Visit [facility] OPTOMETRY [address] [place] [address] TarkaRadha, OD [address] [place] [address] 03/17/2025 11:30 AM EST Medication Management [facility] MEDICINE [address] [place] [address] Nelia Sullivan PharmD [address] [place] [address] documented as of this encounter Goals Goal [...] documented as of this encounter Care Teams Voltage Tester Relationship Specialty Start Date End Date Radha Jamison DO [address] [place] [address] PCP - General Family Medicine 01/26/12 Abdias Murillo, PharmD 230 [place] [address] Pharmacist Internal Medicine 03/21/22 08/30/23 Nelia Sullivan, KeithD 230 [place] [address] Pharmacist Internal Medicine 08/31/23 Letty Rinaldi 12/16/24 12/18/24 Dalila Carson, JOANN [address] [place] [address] Registered Nurse Family Medicine 12/31/24 Ekta Reynolds 12/31/24 Laurel Monterroso Lap RegulatorBobcat Operator 02/20/25 Saige Aguilar 09/26/23 documented as of this encounter
--- OUTSIDE RECORDS SUMMARY | 2025-03-06 09:51 | XMS_ITS | Encounter Summary ---
Author Organization [employer] Address [address] [facility] 7t [place] [address] Care Team Providers Care Trailer Steerer Name Role Phone Radha Jamison DO Primary Care Provider Nelia Sullivan PharmD Unavailable [phone] Dalila Carson RN Unavailable [phone] Ekta Reynolds Unavailable Reason for Visit * Reason Onset Date Comments Call Back Request 03/05/2025 Encounter Details Date Type Department Care Team ([facility] st Contact Info) Description 03/05/2025 Telephone [facility] MEDICINE [address] [place], [place] [phone] Radha Jamison DO [address] [place], [place] [phone] Call Back Request Social History Tobacco Use Types Packs/Day [...] encounter Miscellaneous Notes * Telephone Encounter - Geovanna Carreno - 03/05/2025 10:21 AM EST Tc from pt returning call back documented in this encounter Plan of Treatment Upcoming Encounters Date Type Department Care Team (Late st Contact Info) Description 03/07/2025 11:00 AM EST Office Visit [facility] CHC ADULT DENTAL [address] [place] [address] Umang Hampton 03/13/2025 9:30 AM EST Office Visit [facility] OPTOMETRY [address] [place] [address] Radha Taylor, OD [address] [place] [address] 03/17/2025 11:30 AM EST Medication Management [facility] MEDICINE [address] [place] [address] Nelia Sullivan PharmD [address] [place] [address] documented as of this encounter Goals Goal [...] Plan Patient has diabetic eye disease No Fma, Felicia Patient has chronic kidney disease Care [...] Plan Patient has diabetic eye disease No Dallia Carson, RN Patient has diabetic eye disease Care [...] Weekly blood pressure task No Viera, Tatum, AIRCRAFT CAPTAIN Weekly blood pressure task Care Plan Weekly blood pressure task No Viera, Tatum, AIRCRAFT CAPTAIN Weekly blood pressure task Care Plan Weekly blood pressure task No Viera, Tatum, AIRCRAFT CAPTAIN Patient has diabetic eye disease Care Plan Patient has diabetic eye disease No Viera, Tatum, AIRCRAFT CAPTAIN Patient has diabetic eye disease Care Plan Patient has diabetic eye disease No Viera, Tatum, AIRCRAFT CAPTAIN Patient has diabetic eye disease Care Plan Patient has diabetic eye disease No Viera, Tatum, AIRCRAFT CAPTAIN Patient has chronic kidney disease Care Plan Patient has chronic kidney disease No Viera, Tatum, AIRCRAFT CAPTAIN Patient has chronic kidney disease Care Plan Patient has chronic kidney disease No Viera, Tatum, AIRCRAFT CAPTAIN Patient has chronic kidney disease Care Plan Patient has chronic kidney disease No Viera, Tatum, AIRCRAFT CAPTAIN Weekly blood pressure task Care Plan Weekly blood pressure task No Radha Miranda, PharmD Weekly blood pressure task Care Plan Weekly blood pressure task No MirandaRadha rod, PharmD Weekly blood pressure task Care Plan Weekly blood pressure task No Radha Miranda, PharmD Patient has diabetic eye disease Care Plan Patient has diabetic eye disease No Radha Miranda, PharmD Patient has diabetic [...] Plan Patient has chronic kidney disease No MirandaLisa rodfer, PharmD Patient has chronic kidney disease Care Plan Patient has chronic kidney disease No Radha Miranda, PharmD Weekly blood pressure task Care Plan Weekly blood pressure task No Nelia Sullivan, PharmD Weekly blood pressure task Care Plan [...] Patient has diabetic eye disease No Ekta eRynolds Patient has diabetic eye disease Care Plan [...] Plan Weekly blood pressure task No Dalila Mantilla, AIRCRAFT CAPTAIN Weekly blood pressure task Care Plan Weekly blood pressure task No Dalila Mantilla AIRCRAFT CAPTAIN Weekly blood pressure task Care Plan Weekly blood pressure task No Dalila Mantilla, AIRCRAFT CAPTAIN Patient has diabetic eye disease Care Plan Patient has diabetic eye disease No Jose RafaelSabinaDalila, AIRCRAFT CAPTAIN Patient has diabetic eye disease Care Plan Patient has diabetic eye disease No Jose RafaelSabinaDalila, AIRCRAFT CAPTAIN Patient has diabetic eye disease Care Plan Patient has diabetic eye disease No Jose RafaelSabinaDalila, AIRCRAFT CAPTAIN Patient has chronic kidney disease Care Plan Patient has chronic kidney disease No Jose RafaelSabinaDalila, AIRCRAFT CAPTAIN Patient has chronic kidney disease Care Plan Patient has chronic kidney disease No Jose RafaelDalila, AIRCRAFT CAPTAIN Patient has chronic kidney disease Care Plan Patient has chronic kidney disease No Jose RafaelSabinaDalila, AIRCRAFT CAPTAIN Weekly blood pressure task Care Plan [...] Plan Patient has diabetic eye disease No Parviz Carreno Goevanna Patient has diabetic eye disease Care Plan Patient has diabetic eye disease No Geovanna Pearson Patient has diabetic eye disease Care Plan Patient has diabetic eye disease No Izzy Pearsonla Patient has chronic kidney disease Care Plan Patient has chronic kidney disease No Geovanna Pearson Patient has chronic kidney disease Care Plan Patient has chronic kidney disease No Geovanna Peasron Patient has chronic kidney disease Care Plan [...] documented as of this encounter Care Teams Trailer Steerer Relationship Specialty Start Date End Date Radha Jamison DO [address] [place] [address] PCP - General Family Medicine 01/26/12 Nelia Sullivan PharmD [address] [place] [address] Pharmacist Internal Medicine 08/31/23 Dalila Carson, JOANN [address] [place] [address] Registered Nurse Family Medicine 12/31/24 Ekta Reynolds 12/31/24 Laurel Monterroso Aircraft Systems TechnicianWine Sales Representative 02/20/25 Saige [facility] 09/26/23 documented as of this encounter
--- OUTSIDE RECORDS SUMMARY | 2025-03-06 09:51 | XMS_ITS | Encounter Summary ---
Author Organization [employer] Address 75 [facility] 7t [place] [address] Care Team Providers Care Impregnator And Drier Helper Name Role Phone Radha Jamison DO Primary Care Provider Abdias Murillo PharmD Unavailable Unavail able Nelia Sullivan PharmD Unavailable [phone] Letty Rinaldi Unavailable Dalila Carson RN Unavailable [phone] Ekta Reynolds Unavailable Reason for Visit * Reason Comments Med Refill Encounter Details Date Type Department Care Team (Late st Contact Info) Description 06/10/2022 Refill [facility] MEDICINE [address] [place], [place] [phone] Radha Jamison DO [address] [place], [place] [phone] Chronic bilateral low back pain, unspecified whether [...] Description 03/07/2025 11:00 AM EST Office Visit [facility] CHC ADULT DENTAL [address] [facility] [place] [address] Umang Hampton 03/13/2025 9:30 AM EST Office Visit [facility] OPTOMETRY [address] [place] [address] Tarka Radha, OD [address] [place] [address] 03/17/2025 11:30 AM EST Medication Management [facility] MEDICINE [address] [place] [address] Nelia Sullivan PharmD [address] [place] [address] documented as of this encounter Goals Goal [...] documented as of this encounter Care Teams Impregnator And Drier Helper Relationship Specialty Start Date End Date Radha Jamison DO [address] [place] [phone] PCP - General Family Medicine 01/26/12 Abdias Murillo, PharmD [address] [place] [address] Pharmacist Internal Medicine 03/21/22 08/30/23 Nelia Sullivan PharmD [address] [place] [phone] Pharmacist Internal Medicine 08/31/23 Letty Rinaldi 12/16/24 12/18/24 Dalila Carson, RN [address] [place] [address] Registered Nurse Family Medicine 12/31/24 Ekta Reynolds 12/31/24 Laurel Monterroso Window Machine OperatorPlane Captain 02/20/25 Saige Aguilar 09/26/23 documented as of this encounter
--- OUTSIDE RECORDS SUMMARY | 2025-03-06 09:52 | XMS_ITS | Encounter Summary ---
Author Organization [employer] Address [address] [facility] 7t [place] [address] Care Team Providers Care Wire Coater Name Role Phone Radha Jamison DO Primary Care Provider Nelia Sullivan PharmD Unavailable [phone] Dalila Carson RN Unavailable [phone] Ekta Reynolds Unavailable Reason for Visit * Reason Comments Care Coordination CM/CHW appointment georgina chacko Encounter Details Date Type Department Care Team (Latest Contact Info) Description 03/04/2025 Patient Outreach [facility] MEDICINE [address] [place] [address] Radha Jamison DO [address] [place], [place] [phone] Care Coordination (CM/CHW appointment reminder) Social History Tobacco Use Types Packs/Day Years [...] encounter Progress Notes * Ekta Reynolds - 03/04/2025 10:22 AM EST CHW Ekta Reynolds placed outbound call to patient introducing herself from [facility] CM Department, in regards to remind patient of Adult Complex Care program initial assessment appt omorrow 03/05/25 @ 10AM via telephone with CM Dalila Carson RN. Patient's name and was confirmed. Patient is aware and confirmed will be available for call and has no barriers on attending call. Patient verbalized understanding and agrees with plan. documented in this encounter Plan of Treatment Upcoming Encounters Date Type Department Care Team (Late st Contact Info) Description 03/07/2025 11:00 AM EST Office Visit [facility] ADULT DENTAL [address] [place] [address] Umang Hampton 03/13/2025 9:30 AM EST Office Visit [facility] OPTOMETRY [address] [place] [address] Radha Taylor, OD [address] [place] [address] 03/17/2025 11:30 AM EST Medication Management [facility] MEDICINE [address] [place] [address] Nelia Sullivan PharmAdrian [address] [place] [address] documented as of this encounter Goals Goal [...] Plan Weekly blood pressure task No Dalila aCrson RN Weekly blood pressure task Care Plan [...] Care Plan Weekly blood pressure task No Rodolfo Josue Weekly blood pressure task Care Plan Weekly blood pressure task No RodolfoJosue Patient has diabetic eye disease Care Plan Patient has diabetic eye disease No Rodolfo Josue Patient has diabetic eye disease Care Plan Patient has diabetic eye disease No Rodolfo Josue Patient has diabetic eye disease Care Plan [...] Plan Weekly blood pressure task No Dalila Carosn RN Weekly blood pressure task Care Plan [...] Weekly blood pressure task No Viera, Tatum, ORNAMENTER HAND Weekly blood pressure task Care Plan Weekly blood pressure task No Viera, Tatum, ORNAMENTER HAND Weekly blood pressure task Care Plan Weekly blood pressure task No Viera, Tatum, ORNAMENTER HAND Patient has diabetic eye disease Care Plan Patient has diabetic eye disease No Viera, Tatum, ORNAMENTER HAND Patient has diabetic eye disease Care Plan Patient has diabetic eye disease No Viera, Tatum, ORNAMENTER HAND Patient has diabetic eye disease Care Plan Patient has diabetic eye disease No Viera, Tatum, ORNAMENTER HAND Patient has chronic kidney disease Care Plan Patient has chronic kidney disease No Viera, Tatum, ORNAMENTER HAND Patient has chronic kidney disease Care Plan Patient has chronic kidney disease No Viera, Tatum, ORNAMENTER HAND Patient has chronic kidney disease Care Plan Patient has chronic kidney disease No Viera, Tatum, ORNAMENTER HAND Weekly blood pressure task Care Plan Weekly [...] Weekly blood pressure task No Dalila Mantilla, ORNAMENTER HAND Weekly blood pressure task Care Plan Weekly blood pressure task No Jose RafaelDalila atkins, ORNAMENTER HAND Weekly blood pressure task Care Plan Weekly blood pressure task No Jose RafaelDalila, ORNAMENTER HAND Patient has diabetic eye disease Care Plan Patient has diabetic eye disease No Jose RafaelDalila atkins, ORNAMENTER HAND Patient has diabetic eye disease Care Plan Patient has diabetic eye disease No Jose RafaelDalila atkins, ORNAMENTER HAND Patient has diabetic eye disease Care Plan Patient has diabetic eye disease No Jose RafaelDalila atkins, ORNAMENTER HAND Patient has chronic kidney disease Care Plan Patient has chronic kidney disease No Jose RafaelDalila atkins, ORNAMENTER HAND Patient has chronic kidney disease Care Plan Patient has chronic kidney disease No Jose RafaelDalila atkins, ORNAMENTER HAND Patient has chronic kidney disease Care Plan Patient has chronic kidney disease No Dalila Mantilla, ORNAMENTER HAND Weekly blood pressure task Care Plan Weekly [...] 03/04/2025 Patient has chronic kidney disease 03/04/2025 Assessment Noted Time PHQ-9 Depression Total Score: 16 025 2:10 PM EDT documented as of this encounter Care Teams Wire Coater Relationship Specialty Start Date End Date Radha Jamison DO [address] [place] [address] PCP - General Family Medicine 01/26/12 Nelia Sullivan PharmD [address] [place] [address] Pharmacist Internal Medicine 08/31/23 Dalila Carson RN [address] [place] [address] Registered Nurse Family Medicine 12/31/24 Ekta Reynolds 12/31/24 Laurel Monterroso Pediatrics TeacherEconomics Department Chair 02/20/25 Saige Aguilar 09/26/23 documented as of this encounter
--- OUTSIDE RECORDS SUMMARY | 2025-03-06 09:52 | XMS_ITS | Encounter Summary ---
Author Organization [employer] Address [address] [facility] 7t [place] [address] Care Team Providers Care Technical Assoc Name Role Phone Radha Jamison DO Primary Care Provider Nelia Sullivan PharmD Unavailable Dalila Carson RN Unavailable [phone] Ekta Reynolds Unavailable Reason for Visit * Reason Onset Date Comments Care Coordination 03/05/2025 Home Care Util ization Review and reduction of SN visits Encounter Details Date Type Department Care Team (Late st Contact Info) Description 03/05/2025 Telephone [facility] [address] [place], [place] [phone] Radha Jamison DO [address] [place] [address] Care Coordination (Home Care Utilization Review and reduction of SN visits ) Social History Tobacco Use Types Packs/Day Years [...] encounter Miscellaneous Notes * Telephone Encounter - Dalila Mantilla LPN - 03/06/2025 8:30 AM EST Per review of home care assisted utilization. Reduction of assisted in home addressedwith PCP. PCP in agreement for reduction to assisted 4x weekly at this time. Verbal order obtained and written hard copy created for PCP signature. Reduction of services will begin Monday on 03/10/25. Patient and agency to be updated in AM tomorrow. documented in this encounter Plan of Treatment Upcoming Encounters Date Type Department Care Team (Late st Contact Info) Description 03/07/2025 11:00 AM EST Office Visit [facility] ADULT DENTAL [address] [place] [phone] Umang Hampton 03/13/2025 9:30 AM EST Office Visit [facility] OPTOMETRY [address] [place] [address] Radha Taylor, OD [address] [place] [address] 03/17/2025 11:30 AM EST Medication Management [facility] [address] [place] [address] Nelia Sullivan PharmAdrian [address] [place] [address] documented as of this encounter Goals Goal [...] Weekly blood pressure task No Rodolfo Josue Patient has diabetic eye [...] Weekly blood pressure task No Viera, Tatum, COMBINATION MACHINE TOOL SETTER Weekly blood pressure task Care Plan Weekly blood pressure task No Viera, Tatum, COMBINATION MACHINE TOOL SETTER Weekly blood pressure task Care Plan Weekly blood pressure task No Viera, Tatum, COMBINATION MACHINE TOOL SETTER Patient has diabetic eye disease Care Plan Patient has diabetic eye disease No Viera, Tatum, COMBINATION MACHINE TOOL SETTER Patient has diabetic eye disease Care Plan Patient has diabetic eye disease No Viera, Tatum, COMBINATION MACHINE TOOL SETTER Patient has diabetic eye disease Care Plan Patient has diabetic eye disease No Viera, Tatum, COMBINATION MACHINE TOOL SETTER Patient has chronic kidney disease Care Plan Patient has chronic kidney disease No Viera, Tatum, COMBINATION MACHINE TOOL SETTER Patient has chronic kidney disease Care Plan Patient has chronic kidney disease No Viera, Tatum, COMBINATION MACHINE TOOL SETTER Patient has chronic kidney disease Care Plan Patient has chronic kidney disease No Viera, Tatum, COMBINATION MACHINE TOOL SETTER Weekly blood pressure task Care Plan Weekly [...] blood pressure task No Jose RafaelDalila atkins, COMBINATION MACHINE TOOL SETTER Weekly blood pressure task Care Plan Weekly blood pressure task No Jose RafaelDalila swanson, COMBINATION MACHINE TOOL SETTER Weekly blood pressure task Care Plan Weekly blood pressure task No Jose RafaelMaraDalila, COMBINATION MACHINE TOOL SETTER Patient has diabetic eye disease Care Plan Patient has diabetic eye disease No Jose RafaelMaraDalila, COMBINATION MACHINE TOOL SETTER Patient has diabetic eye disease Care Plan Patient has diabetic eye disease No Jose RafaelMaraDalila, COMBINATION MACHINE TOOL SETTER Patient has diabetic eye disease Care Plan Patient has diabetic eye disease No Jose RafaelDalila, COMBINATION MACHINE TOOL SETTER Patient has chronic kidney disease Care Plan Patient has chronic kidney disease No Jose RafaelDalila, COMBINATION MACHINE TOOL SETTER Patient has chronic kidney disease Care Plan Patient has chronic kidney disease No Jose RafaelDalila, COMBINATION MACHINE TOOL SETTER Patient has chronic kidney disease Care Plan Patient has chronic kidney disease No Jose RafaelDalila atkins, COMBINATION MACHINE TOOL SETTER Weekly blood pressure task Care Plan Weekly [...] Plan Weekly blood pressure task No Colon Geovanna Carreno Weekly blood pressure task Care Plan Weekly blood pressure task No [place] Geovanna Carreno Weekly blood pressure task Care Plan Weekly [...] disease No Colon Wai Geovanna Patient has chronic kidney disease Care Plan Patient has chronic kidney disease No [place] Wai Geovanna Patient has chronic kidney disease Care Plan Patient has chronic kidney disease No [place] Geovanna Carreno Patient has chronic kidney disease Care Plan Patient has chronic kidney disease No Colon Geovanna Carreno Weekly blood pressure task Care Plan Weekly [...] as of this encounter Care Teams Technical Assoc Relationship Specialty Start Date End Date Radha Jamison DO [address] [place] [address] PCP - General Family Medicine 01/26/12 Nelia Sullivan PharmD [address] [place] [address] Pharmacist Internal Medicine 08/31/23 Dalila Carson RN [address] [place] [address] Registered Nurse Family Medicine 12/31/24 Ekta Reynolds 12/31/24 Laurel Monterroso Superintendent Landfill OperationsTorpedo Shooter 02/20/25 Saige Aguilar 09/26/23 documented as of this encounter
--- OUTSIDE RECORDS SUMMARY | 2025-03-06 09:52 | XMS_ITS | Encounter Summary ---
Author Organization [email or web address] Address [address] [facility] 7t [place] [address] Care Team Providers Care Research And Development Manager Name Role Phone Radha Jamison DO Primary Care Provider [phone] Nelia Sullivan PharmD Unavailable [phone] Dalila Carson RN Unavailable [phone] Ekta Reynolds Unavailable Reason for Visit * Reason Comments Care Coordination Triage Encounter Details Date Type Department Care Team (Latest Contact Info) Description 03/05/2025 Patient Outreach [facility] MEDICINE [address] [place] [address] Radha Jamison DO [address] [place], [place] [phone] Care Coordination (Triage) Social History Tobacco Use Types Packs/Day Years [...] encounter Progress Notes * Ekta Reynolds - 03/05/2025 1:31 PM EST CHW placed a call regarding a care management (CM) assessment. During the phone conversation, the patient stated she would like to be seen. The patient reports having a wound behind her right heel that is red and has yellow pus-like discharge. She states it is very difficult to walk and believes the wound may be infected. Please call the patient to clarify. The patient is [place]-speaking. * Pilar Busch RN - 03/05/2025 1:31 PM EST TC call placed to the pt with [employer] fish skinning machine feeder #[id number] to follow up on pt reported right heel wound. The pt states that this was first noted around two weeks ago. At first the wound was much smaller insize but has grown significantly. The wound is now draining odorous pus and is causing 9/10 pain. The pt has used OTC antibiotic cream with little to no improvement. The pt remains afebrile but is now having difficulty with ambulation due to the sore. The pt was advised that due to symptoms suspectof an open infection to proceed to the ED for evaluation as soon as possible. Pt was agreeable and will present to the ED today. Protocol Used: Wound Infection Suspected (Adult) Protocol-Based Disposition: Go to Office or Video Visit Now Video visit offer not recorded Positive Triage Questions: * Looks infected (spreading redness, red streak, pus) and fever * Looks infected (spreading redness, pus) and face wound * Looks infected (e.g., spreading redness, pus) and no fever * Pus or cloudy fluid draining from wound * Patient wants to be seen * All higher-acuity triage questions were negative. documented in this encounter Plan of Treatment Upcoming Encounters Date Type Department Care Team (Late st Contact Info) Description 03/07/2025 11:00 AM EST Office Visit [facility] ADULT DENTAL [address] [place] [address] Umang Hampton 03/13/2025 9:30 AM EST Office Visit [facility] OPTOMETRY [address] [place] [address] Radha Taylor, OD [address] [place] [address] 03/17/2025 11:30 AM EST Medication Management [facility] [address] [place] [address] Nelia Sullivan PharmD [address] [place] [address] documented as of this encounter Goals Goal Patient Goal Type Associated Problems Recent Progress Patient-Stated? Author Record your blood pressure once per day Blood Pressure No Nelia Sullivan PharmAdrian Blood Pressure < 140/90 Blood Pressure 120/58(2024 [...] Plan Weekly blood pressure task No Audelia dAams RN Patient has diabetic eye disease Care [...] Care Plan Weekly blood pressure task No Alli, Jeryka, RN Weekly blood pressure task Care Plan [...] Plan Weekly blood pressure task No Tatum Viera, SCOURING TRAIN OPERATOR Weekly blood pressure task Care Plan Weekly blood pressure task No Tatum Viera SCOURING TRAIN OPERATOR Weekly blood pressure task Care Plan Weekly blood pressure task No Viera, Tatum, SCOURING TRAIN OPERATOR Patient has diabetic eye disease Care Plan Patient has diabetic eye disease No Viera, Tatum, SCOURING TRAIN OPERATOR Patient has diabetic eye disease Care Plan Patient has diabetic eye disease No Viera, Tatum, SCOURING TRAIN OPERATOR Patient has diabetic eye disease Care Plan Patient has diabetic eye disease No Viera, Tatum, SCOURING TRAIN OPERATOR Patient has chronic kidney disease Care Plan Patient has chronic kidney disease No Viera, Tatum, SCOURING TRAIN OPERATOR Patient has chronic kidney disease Care Plan Patient has chronic kidney disease No Viera, Tatmu, SCOURING TRAIN OPERATOR Patient has chronic kidney disease Care Plan Patient has chronic kidney disease No Viera, Tatum, SCOURING TRAIN OPERATOR Weekly blood pressure task Care Plan Weekly blood pressure task No MirandaMarybethRadha, PharmD Weekly blood pressure task Care Plan Weekly blood pressure task No MirandaMarybethRadha, PharmD Weekly blood pressure task Care Plan Weekly blood pressure task No MirandaMarybethRadha, PharmD Patient has diabetic eye disease Care Plan Patient has diabetic eye disease No MirandaMarybethRadha, PharmD Patient has diabetic eye disease Care Plan Patient has diabetic eye disease No MirandaMarybethRadha, PharmD Patient has diabetic eye disease Care Plan Patient has diabetic eye disease No Miranda, Radha, PharmD Patient has chronic kidney disease Care Plan Patient has chronic kidney disease No MirandaMarybethRadha, PharmD Patient has chronic kidney disease Care [...] Patient has chronic kidney disease No Nelia Sullivan, PharmD Weekly blood pressure [...] blood pressure task No Jose RafaelDalila atkins SCOURING TRAIN OPERATOR Patient has diabetic eye disease Care Plan Patient has diabetic eye disease No Jose RafaelDalila atkins, SCOURING TRAIN OPERATOR Patient has diabetic eye disease Care Plan Patient has diabetic eye disease No Jose RafaelDalial atkins SCOURING TRAIN OPERATOR Patient has diabetic eye disease Care Plan Patient has diabetic eye disease No Jose RafaelDalila atkins, SCOURING TRAIN OPERATOR Patient has chronic kidney disease Care Plan Patient has chronic kidney disease No Jose RafaelDalila atkins SCOURING TRAIN OPERATOR Patient has chronic kidney disease Care Plan Patient has chronic kidney disease No Jose RafaelDalila atkins SCOURING TRAIN OPERATOR Patient has chronic kidney disease Care Plan Patient has chronic kidney disease No Jose Rafael, Dalila, SCOURING TRAIN OPERATOR Weekly blood pressure task Care Plan Weekly [...] Plan Patient has diabetic eye disease No Dalial Carson RN Patient has diabetic eye disease [...] documented as of this encounter Care Teams Research And Development Manager Relationship Specialty Start Date End Date Radha Jamison DO [address] [place] [address] PCP - General Family Medicine 01/26/12 Nelia Sullivan PharmD [address] [place] [address] Pharmacist Internal Medicine 08/31/23 Dalila Carson, JOANN [address] [place] [phone] Registered Nurse Family Medicine 12/31/24 Ekta Reynolds 12/31/24 Laurel Monterroso Door Frame Assembler MachineMedical Insurance Claims Specialist 02/20/25 Saige Aguilar 09/26/23 documented as of this encounter
--- OUTSIDE RECORDS SUMMARY | 2025-03-06 09:52 | XMS_ITS | Encounter Summary ---
Author Organization [employer] Address [address] [facility] 7t [place] [address] Care Team Providers Care Testing Director Name Role Phone Radha Jamison DO Primary Care Provider Nelia Sullivan PharmD Unavailable [phone] Dalila Carson RN Unavailable [phone] Ekta Reynolds Unavailable Reason for Visit * Reason Onset Date Comments Appointment Request 12/30/2024 Encounter Details Date Type Department Care Team ([facility] st Contact Info) Description 12/30/2024 Telephone [facility] MEDICINE [address] [place], [place] [phone] Radha Jamison DO [address] [place], [place] [phone] Appointment Request Social History Tobacco Use Types [...] to get Oxycodone prescribed Contact pt at [phone] (polish) documented in this encounter Plan of Treatment Upcoming Encounters Date Type Department Care Team (Late st Contact Info) Description 03/07/2025 11:00 AM EST Office Visit [facility] CHC ADULT DENTAL [address] [place] [address] Umang Hampton 03/13/2025 9:30 AM EST Office Visit [facility] OPTOMETRY [address] [place], [place] [phone] Radha Taylor, OD [address] [place] [address] 03/17/2025 11:30 AM EST Medication Management [facility] [address] [place] [address] Nelia Sullivan PharmD [address] [place] [address] documented as of this encounter Goals Goal [...] Care Plan Patient has chronic kidney disease Meghana Quintana MA Weekly blood pressure task Care Plan Weekly blood pressure task No Meghana Carr MA Weekly blood pressure task Care Plan Weekly blood pressure task Meghana Quintana MA Patient has diabetic eye disease Care Plan Patient has diabetic eye disease Meghana Quintana MA Patient has diabetic eye disease Care [...] documented as of this encounter Care Teams Testing Director Relationship Specialty Start Date End Date Radha Jamison DO [address] [place] [address] PCP - General Family Medicine 01/26/12 Nelia Sullivan PharmD [address] [place] [address] Pharmacist Internal Medicine 08/31/23 Dalila Carson RN [address] [place] [phone] Registered Nurse Family Medicine 12/31/24 Ekta Reynolds 12/31/24 Laurel Monterroso Reinforced Concrete InspectorSalesperson Men'S Furnishings 02/20/25 Saige Aguilar 09/26/23 documented as of this encounter
--- OUTSIDE RECORDS SUMMARY | 2025-03-06 09:52 | XMS_ITS | Encounter Summary ---
Demographics Address [address] [place] [address] Mobile Phone Home Phone Preferred Language es Marital Status Unknown Church Affiliation Unknown Race White Ethnic Group Unknown Author Organization [employer] Address [address] [facility] 7t [place] [address] Care Team Providers Care Ged Instructor Name Role Phone ShaheenRadha Primary Care Provider [phone] Nelia Sullivan PharmD Unavailable [phone] Dalila Carson RN Unavailable [phone] Ekta Reynolds Unavailable Encounter Details Date Type Department Care Team (Late st Contact Info) Description 03/05/2025 Orders Only GENERIC EXTERNAL DATA DEPARTMENT [...] Description 03/07/2025 11:00 AM EST Office Visit [facility] CH[facility] ADULT DENTAL [address] [place] [address] Umang Hampton 03/13/2025 9:30 AM EST Office Visit [facility] OPTOMETRY [address] [place] [address] TarkaRadha, OD [address] [place] [address] 03/17/2025 11:30 AM EST Medication Management [facility] MED[facility] [address] [place] [address] Puia, Nelia, PharmD [address] [place] [address] documented as of this encounter Goals Goal [...] Weekly blood pressure task No Tatum Viera LABELING STRATEGIST Weekly blood pressure task Care Plan Weekly blood pressure task No Tatum Viera, LABELING STRATEGIST Weekly blood pressure task Care Plan Weekly blood pressure task No Tatum Viera LABELING STRATEGIST Patient has diabetic eye disease Care Plan Patient has diabetic eye disease No Viera, Tatum, LABELING STRATEGIST Patient has diabetic eye disease Care Plan Patient has diabetic eye disease No Viera, Tatum, LABELING STRATEGIST Patient has diabetic eye disease Care Plan Patient has diabetic eye disease No Viera, Tatum, LABELING STRATEGIST Patient has chronic kidney disease Care Plan Patient has chronic kidney disease No Viera, Tatum, LABELING STRATEGIST Patient has chronic kidney disease Care Plan Patient has chronic kidney disease No Viera, Tatum, LABELING STRATEGIST Patient has chronic kidney disease Care Plan Patient has chronic kidney disease No Viera, Tatum, LABELING STRATEGIST Weekly blood pressure task Care Plan Weekly blood pressure task No MirandaMarybethRadha, PharmD Weekly blood pressure task Care Plan Weekly blood pressure task No Miranda, Radha, PharmD Weekly blood pressure [...] blood pressure task No Jose RafaelDalila atkins LPN Weekly blood pressure task Care Plan Weekly blood pressure task No Dalila Mantilla LPN Patient has diabetic eye disease Care Plan Patient has diabetic eye disease No Jose RafaelDalila atkins LABELING STRATEGIST Patient has diabetic eye disease Care Plan Patient has diabetic eye disease No Jose RafaelDalila atkins, LABELING STRATEGIST Patient has diabetic eye disease Care Plan Patient has diabetic eye disease No Jose RafaelDalila atkins, LABELING STRATEGIST Patient has chronic kidney disease Care Plan Patient has chronic kidney disease No Jose RafaelDalila atkins, LABELING STRATEGIST Patient has chronic kidney disease Care Plan Patient has chronic kidney disease No Jose RafaelDalila atkins, LABELING STRATEGIST Patient has chronic kidney disease Care Plan Patient has chronic kidney disease No Jose RafaelDalila atkins LABELING STRATEGIST Weekly blood pressure task Care Plan Weekly [...] Plan Patient has diabetic eye disease No Etka Reynolds Patient has chronic kidney disease Care [...] Ekta Reynolds documented as of this encounter Procedures Procedure Name Priority Date/Time Associated Diagnosis Comments XR FOOT 3+ VIEWS RIGHT Routine 2:15 AM EST XR CALCANEUS 2 VIEWS RIGHT Routine 03/06/2025 2:09 AM EST CBC WITH AUTO DIFFERENTIAL Routine 03/05/2025 10:32 PM EST SED RATE BY MODIFIED WESTERGREN Routine 03/05/2025 10:32 PM EST C-REACTIVE PROTEIN Routine 03/05/2025 10 :32 PM EST COMPREHENSIVE METABOLIC PANEL Routine 03/05/2025 10:32 PM EST documented in this encounter Results * XR Foot 3+ Views Right (03/06/2025 2:15 AM EST) Anatomical Region Laterality Modality Lower Extremities, Foot Right Radiogra [facility] 03/06/2025 2:15 AM EST Narrative 03/06/2025 2:16 AM EST [address] [address] XRay Report Signed Patient: Rocío Hallman MR#: [id number] : 1960 Acct:[id number] Age/Sex: 64 / F ADM Date: 03/05/25 Loc: HO.ED Attending Dr: Ordering Physician: Noe Younger MD Date of Service: 03/06/25 Procedure(s): XR foot RT min 3V Accession Number(s): [id number] cc: [facility]; Noe Younger MD Reason for Exam: [...] in OV> 03/06/25215 DD/ 4 TD/TT: 03/06/25214 Roving Machine Operator: Procedure Note Donotuseinterpreter, Image - 03/06/[address] [address] XRay Report Signed Patient: Rocío HallmanMR#: [id number] : 1960cct:[id number] Age/Sex: 64 / FADM Date: 03/05/25 Loc: .ED Attending Dr: Ordering Physician: Noe Younger MD Date of Service: 03/06/25 Procedure(s): XR foot RT min 3V Accession Number(s): [id number] cc: [facility]; Noe Younger MD Reason for Exam: [...] in OV> 03/06/25215 DD/ 4 TD/TT: 03/06/25214 Roving Machine Operator: [facility] External Provider IMG XR PROCEDURES Edited Result - Final * XR Calcaneus 2 Views Right (03/06/2025 2:09 AM EST) Anatomical Region Laterality Modality Lower Extremities, Calcaneus Right Rad iographic Imaging 03/06/2025 2:09 AM EST Narrative 03/06/2025 2:10 AM EST [place] [address] XRay Report Signed Patient: Rocío Hallman MR#: [id number] : 1960 Acct:[id number] Age/Sex: 64 / F ADM Date: 03/05/25 Loc: HO.ED Attending Dr: Ordering Physician: Noe Younger MD Date of Service: 03/06/25 Procedure(s): XR calcaneus RT min 2V Accession Number(s): [id number] cc: [facility]; Noe Younger MD Reason for Exam: [...] in OV> 03/06/25209 DD/ 8 TD/TT: 03/06/25208 Roving Machine Operator: Procedure Note Donotuseinterpreter, Image - 03/06/[address] [address] XRay Report Signed Patient: Rocío HallmanMR#: [id number] : 2Acct:[id number] Age/Sex: 64 / FADM Date: 03/05/25 Loc: HO.ED Attending Dr: Ordering Physician: Noe Younger MD Date of Service: 03/06/25 Procedure(s): XR calcaneus RT min 2V Accession Number(s): [id number] cc: [facility]; Noe Younger MD Reason for Exam: [...] in OV> 03/06/25209 DD/ 8 TD/TT: 03/06/25208 Roving Machine Operator: us [facility] External Provider IMG XR PROCEDURES Edited Result - Final * C-reactive Protein (03/05/2025 10:32 PM EST) C Reactive Protein 0.10 < or = 0.50 mg/dL [facility] 03/05/2025 10:3 2 PM EST 03/05/2025 10:35 PM EST Generic External Data Provider LAB BLOOD ORDERAB LES Final Result [facility] [address] [place] [address] [phone] * (ABNORMAL) Sed Rate by Modified Westergren (03/05/2025 10:32 PM EST) Erythrocyte Sedimentation Rate 42(H) 1 - 30 MM/HR [facility] Comment:Patients with polycy themia and many hemoglobin abnormalitiesmay have depressed sed rates whereas patients with anemiamay have elevated sed rates. 03/05/2025 10:3 2 PM EST 03/06/2025 1:22 AM EST us Generic External Data Provider LAB BLOOD ORDERAB LES Final Result Performing Organization Address [facility] Co de Phone Number [facility] [address] [place] [address] [phone] * (ABNORMAL) Comprehensive Metabolic Panel (03/05/2025 10:32 PM EST) Sodium 139 135 - 145 mmol/L [facility] Potassium 4.0 3.3 - 5.1 mmol/L [facility] Chloride 104 96 - 108 mmol/L [facility] Carbon Dioxide 28 22 - 29 mmol/L [facility] Anion Gap 11(L) 12 - 20 [facility] Urea Nitrogen (BUN) 23(H) 9 - 16 mg/dL [facility] Creatinine, Serum 1.13 0.5 - 1.4 mg/dL [facility] Creatinine Clr Calc Pharmacy 42.3 [facility] Comment:Provided height and weight: 152.4 cm,63.503 kg.eGFR (calculated from the MDRD study equation) and eCrCl(calculated from the Cockcroft-Gault equation) are based ondifferent parameters and may not yield comparable results.If eCrCl result is absurd, please check patient'sheight/weight. Estimated Glomerular Filt Rate 49 [facility] Comment:Chronic Kidney Disea se: Estimated GFR < 60 mL/min/1.81l2Wngftt Kidney Disease: Estimated GFR < 15 mL/min/1.73m2 Glucose 279(H) 60 - 115 mg/dL [facility] Calcium 9.0 8.4 - 10.2 mg/dL [facility] Bilirubin, Total 0.3 0.0 - 1.0 mg/dL [facility] Aspartate Amino Transferase 16 5 - 31 U/L [facility] Alanine Aminotransferase 8 0 - 31 U/L [facility] Total Protein 6.2(L) 6.5 - 8.0 g/dL [facility] Albumin Level 3.5 3.5 - 5.0 g/dL [facility] Alkaline Phosphatase 97 39 - 117 U/L [facility] 03/05/2025 10:3 2 PM EST 03/05/2025 10:35 PM EST us Generic External Data Provider LAB BLOOD ORDERAB LES Final Result Performing Organization Address City/State/[facility] Co de Phone Number [facility] [address] [place] [phone] * (ABNORMAL) CBC auto differential (03/05/2025 10:32 PM EST) White Blood Count 6.9 4.8 - 10.8 X10*3/uL [facility] Red Blood Count 4.09(L) 4.20 - 5.50 X10*6/uL [facility] Hemoglobin 11.7(L) 12.0 - 16.0 g/dl [facility] Hematocrit 35.6(L) 37.0 - 47.0 % [facility] Mean Corpuscular Volume 87.0 80.0 - 98.0 fL [facility] Mean Corpuscular Hemoglobin 28.6 27.0 - 33.0 pg [facility] Mean Corpuscular HGB Conc 32.9 31.0 - 35.0 g/dl [facility] Red Cell Distribution Width 14.5 11.0 - 16.0 % [facility] Platelet Count 285 160 - 400 X10*3/uL [facility] Mean Platelet Volume 9.0(L) 9.4 - 12.3 fL [facility] Neutrophils Percent Auto 57.7 45 - 73 % [facility] Imm Gran Pct Auto 0.1 0.0 - 0.4 % [facility] Lymphocytes Percent Auto 31.2 20 - 40 % [facility] Monocytes Percent Auto 6.1 2 - 11 % [facility] Eosinophils Percent Auto 4.2(H) 0 - 4 % [facility] Basophils Percent Auto 0.7 0 - 2 % [facility] NRBC Pct Auto 0.0 0.0 - 0.2 /100WBC [facility] Neutrophils Absolute Auto 4.0 2.0 - 8.3 x10*3/uL [facility] Imm Gran Abs Auto 0.01 0.00 - 0.03 X10*3/uL [facility] Lymphocytes Absolute Auto 2.2 1.2 - 4.9 X10*3/uL [facility] Monocytes Absolute Auto 0.4 0.1 - 1.2 X10*3/uL [facility] Eosinophils Absolute Auto 0.3 0.0 - 0.4 X10*3/uL [facility] Basophils Absolute Auto 0.1 0.0 - 0.2 X10*3/uL [facility] NRBC Abs Auto 0.000 0.0 - 0.012 X10*3/uL [facility] 03/05/2025 10:3 2 PM EST 03/05/2025 10:35 PM EST us Generic External Data Provider LAB BLOOD ORDERAB LES Final Result [facility] [address] [place] [phone] [phone] documented in this encounter Visit Diagnoses [...] documented as of this encounter Care Teams Ged Instructor Relationship Specialty Start Date End Date Radha Jamison DO [address] [place] [phone] PCP - General Family Medicine 01/26/12 Nelia Sullivan, KeithD [address] [place] [address] Pharmacist Internal Medicine 08/31/23 Dalila Carson, RN [address] [place] [address] Registered Nurse Family Medicine 12/31/24 Ekta Reynolds 12/31/24 Laurel Monterroso Finishing Room OperatorAgricultural Science Professor 02/20/25 Saige Aguilar 09/26/23 documented as of this encounter
--- OUTSIDE RECORDS SUMMARY | 2025-03-06 09:52 | XMS_ITS | Encounter Summary ---
Author Organization [employer] Address [address] [facility] [address] [place] [address] Care Team Providers Care Bid Writer Name Role Phone Radha Jamison DO Primary Care Provider [phone] Nelia Sullivan PharmD Unavailable Dalila Carson RN Unavailable [phone] Ekta Reynolds Unavailable Reason for Visit * Reason Onset Date Comments Care Coordination 03/06/2025 Home Care Util ization Review Agency contacted Encounter Details Date Type Department Care Team ([facility] st Contact Info) Description 03/06/2025 Telephone [facility] MEDICINE [address] [place], [place] [phone] Radha Jamison DO [address] [place], [place] [phone] Care Coordination (Home Care Utilization Review Agency contacted) Social History Tobacco Use Types Packs/Day Years [...] Encounter - Dalila Mantilla LPN - 03/06/2025 8:37 AM EST Telephone call to [facility] with verbal order for reduction of [facility]ci visits effective 03/10/25. Verbal order from PCP authorized yesterday afternoon. Message left with Marybeth at this time and signed order will be scanned to agency when available. Home Care Utilization Review Nurse name and number left for requested call back for verification of message received. Pending return call at this time. Return call received from Marybeth with [facility] and confirms message for reduction of home care starting 03/10/25. documented in this encounter Plan of Treatment Upcoming Encounters Date Type Department Care Team (Late st Contact Info) Description 03/07/2025 11:00 AM EST Office Visit [facility] ADULT DENTAL [address] [place] [address] Umang Hampton 03/13/2025 9:30 AM EST Office Visit [facility] OPTOMETRY [address] [place] [address] Tarmerritt Radha, OD [address] [place] [address] 03/17/2025 11:30 AM EST Medication Management [facility] [address] [place] [address] PuNelia cortes, PharmD [address] [place] [address] documented as of this encounter Goals Goal Patient Goal Type Associated Problems Recent Progress Patient-Stated? Author Record your blood pressure once per day Blood Pressure No Nelia Sullivan, PharmD Blood Pressure < 140/90 Blood Pressure 120/58(2024 10:33 AM EST) No Yazmin Sullivansa, PharmD Smoking cessation General No PuiaFeliceNelia, PharmD Patient will adhere to medication regimen General No PuiaYazminsa, PharmD Hemoglobin A1c < 7 Result Component 10.1(12/07/19 25 12:48 PM EDT) No Abdias Murillo, PharmAdrian Record [...] Weekly blood pressure task No Viera, Tatum, EMERGENCY MEDICAL DISPATCHER Weekly blood pressure task Care Plan Weekly blood pressure task No Viera, Tatum, EMERGENCY MEDICAL DISPATCHER Weekly blood pressure task Care Plan Weekly blood pressure task No Viera, Tatum, EMERGENCY MEDICAL DISPATCHER Patient has diabetic eye disease Care Plan Patient has diabetic eye disease No Viera, Tatum, EMERGENCY MEDICAL DISPATCHER Patient has diabetic eye disease Care Plan Patient has diabetic eye disease No Viera, Tatum, EMERGENCY MEDICAL DISPATCHER Patient has diabetic eye disease Care Plan Patient has diabetic eye disease No Viera, Tatum, EMERGENCY MEDICAL DISPATCHER Patient has chronic kidney disease Care Plan Patient has chronic kidney disease No Viera, Tatum, EMERGENCY MEDICAL DISPATCHER Patient has chronic kidney disease Care Plan Patient has chronic kidney disease No Viera, Tatum, EMERGENCY MEDICAL DISPATCHER Patient has chronic kidney disease Care Plan Patient has chronic kidney disease No Viera, Tatum, EMERGENCY MEDICAL DISPATCHER Weekly blood pressure task Care Plan Weekly [...] Weekly blood pressure task No Jose RafaelSabinaDalila, EMERGENCY MEDICAL DISPATCHER Weekly blood pressure task Care Plan Weekly blood pressure task No Jose RafaelSabinaDalila, EMERGENCY MEDICAL DISPATCHER Weekly blood pressure task Care Plan Weekly blood pressure task No Jose Rafael Dalila, EMERGENCY MEDICAL DISPATCHER Patient has diabetic eye disease Care Plan Patient has diabetic eye disease No Jose Rafael Dalila, EMERGENCY MEDICAL DISPATCHER Patient has diabetic eye disease Care Plan Patient has diabetic eye disease No Jose RafaelSabinaDalila, EMERGENCY MEDICAL DISPATCHER Patient has diabetic eye disease Care Plan Patient has diabetic eye disease No Jose RafaelSabinaDalila, EMERGENCY MEDICAL DISPATCHER Patient has chronic kidney disease Care Plan Patient has chronic kidney disease No Jose RafaelSabinaDalila, EMERGENCY MEDICAL DISPATCHER Patient has chronic kidney disease Care Plan Patient has chronic kidney disease No Jose Rafael Dalila, EMERGENCY MEDICAL DISPATCHER Patient has chronic kidney disease Care Plan Patient has chronic kidney disease No Jose RafaelSabinaDalila, EMERGENCY MEDICAL DISPATCHER Weekly blood pressure task Care Plan Weekly [...] Plan Patient has diabetic eye disease No Alli, Jeryka, RN Patient has diabetic eye disease Care [...] blood pressure task No Colon Wai Geovanna Weekly blood pressure task Care Plan Weekly blood pressure task No Colon Wai Geovanna Weekly blood pressure task Care Plan Weekly [...] Patient has chronic kidney disease No Colon Wai, Geovanna Patient has chronic kidney disease Care Plan Patient has chronic kidney disease No Colon Wai, Geovanna Weekly blood pressure task Care Plan Weekly [...] Patient has diabetic eye disease No Dalila Mantilla LPN Patient has diabetic eye disease Care Plan Patient has diabetic eye disease No Jose RafaelDalila atkins LPN Patient has diabetic eye disease Care Plan Patient has diabetic eye disease No Jose RafaelDalila EMERGENCY MEDICAL DISPATCHER Patient has chronic kidney disease Care Plan Patient has chronic kidney disease No Jose RafaelDalila, EMERGENCY MEDICAL DISPATCHER Patient has chronic kidney disease Care Plan Patient has chronic kidney disease No Jose RafaelDalila, EMERGENCY MEDICAL DISPATCHER Patient has chronic kidney disease Care Plan Patient has chronic kidney disease No Jose RafaelDalila atkins EMERGENCY MEDICAL DISPATCHER Weekly blood pressure task Care Plan Weekly blood pressure task No Jose RafaelDalila atkins EMERGENCY MEDICAL DISPATCHER Weekly blood pressure task Care Plan Weekly blood pressure task No Jose RafaelDalila atkins EMERGENCY MEDICAL DISPATCHER Weekly blood pressure task Care Plan Weekly blood pressure task No Jose RafaelDalila EMERGENCY MEDICAL DISPATCHER Patient has diabetic eye disease Care Plan Patient has diabetic eye disease No Jose RafaelDalila, EMERGENCY MEDICAL DISPATCHER Patient has diabetic eye disease Care Plan Patient has diabetic eye disease No Jose RafaelDalila, EMERGENCY MEDICAL DISPATCHER Patient has diabetic eye disease Care Plan Patient has diabetic eye disease No Dalila Mantilla EMERGENCY MEDICAL DISPATCHER Patient has chronic kidney disease Care Plan Patient has chronic kidney disease No Jose RafaelDalila atkins EMERGENCY MEDICAL DISPATCHER Patient has chronic kidney disease Care Plan Patient has chronic kidney disease No Jose RafaelDalila, EMERGENCY MEDICAL DISPATCHER Patient has chronic kidney disease Care Plan Patient has chronic kidney disease No Dalila Mantilla LPN documented as of this encounter Visit Diagnoses [...] 03/06/2025 Patient has chronic kidney disease 03/06/2025 Assessment Noted Time PHQ-9 Depression Total Score: 16 11/15/ 025 2:10 PM EDT documented as of this encounter Care Teams Bid Writer Relationship Specialty Start Date End Date Radha Jamison DO [address] [place], [place] [phone] PCP - General Family Medicine 01/26/12 Nelia Sullivan PharmD [address] [place], [place] [phone] Pharmacist Internal Medicine 08/31/23 Dalila Carson, JOANN [address] [place] [address] Registered Nurse Family Medicine 12/31/24 Ekta Reynolds 12/31/24 Laurel Monterroso Parking Lot SupervisorDrop Hammer Mechanic 02/20/25 [facility] 09/26/23 documented as of this encounter
--- OUTSIDE RECORDS SUMMARY | 2025-03-25 12:34 | XMS_ITS | Encounter Summary ---
Author Organization [employer] Address [address] [facility] [address] [place] [address] Care Team Providers Care Fixing Carpenter Name Role Phone Radha Jamison DO Primary Care Provider Nelia Sullivan PharmD Unavailable [phone] Dalila Carson RN Unavailable [phone] Ekta Reynolds Unavailable Reason for Visit * Reason Comments Care Management C3CM- initial assess ment/enrollment. lvm Encounter Details Date Type Department Care Team (Late st Contact Info) Description 03/20/2025 Patient Outreach [facility] [address] [place] [address] Radha Jamison DO [address] [place] [address] Care Management (C3CM- initial assessment/enrollmen dat nava) Social History Tobacco Use Types Packs/Day Years Used Date Smoking Tobacco: Every Day Cigarettes 1 45.6 Started: 08/31/1979 Passive Smoke Exposure: Current Smokeless [...] Progress Notes * Dalila Carson RN - 03/20/2025 10:05 AM EST CM Dalila Carson RN, placed outbound call to patient for agreed upon assessment time. No answer atthis time. Number not in service. Placed call to alternate number on file. No answer. Left message requesting call back at [phone]. CM/CHW will attempt contact with patient to reschedule missed initial assessment. documented in this encounter Plan of Treatment Upcoming Encounters Date Type Department Care Team ([facility] Contact Info) Description 04/18/2025 11:00 AM EST Medication Management [facility] [address] [place] [address] Nelia Sullivan, KeithD [address] [place] [address] documented as of this encounter Goals Goal Patient Goal Type Associated Problems Recent Progress Patient-Stated? Author Record your blood pressure once per day Blood Pressure No Nelia Sullivan PharmD Blood Pressure < 140/90 Blood Pressure 180/72(2025 11:39 AM EST) No Nelia Sullivan PharmD Smoking cessation General No Nelia Sullivan PharmD Patient will adhere to medication regimen General No Nelia Sullivan PharmD Hemoglobin A1c < 7 Result Component 10.9(03/17/19 1:19 PM EST) No Abdias Murillo PharmD Record [...] Patient has diabetic eye disease No Dalila Carson, RN Patient has chronic kidney disease Care Plan Patient has chronic kidney disease No Dalila Carson RN Patient has chronic kidney disease Care Plan Patient has chronic kidney disease No Dalila Carson RN Patient has chronic kidney disease Care Plan Patient has chronic kidney disease No Dalila Carson RN Weekly blood pressure task Care Plan Weekly blood pressure task No Viera, Tatum, BATCH UNIT TREATER Weekly blood pressure task Care Plan Weekly blood pressure task No Viera, Tatum, BATCH UNIT TREATER Weekly blood pressure task Care Plan Weekly blood pressure task No Viera, Tatum, BATCH UNIT TREATER Patient has diabetic eye disease Care Plan Patient has diabetic eye disease No Viera, Tatum, BATCH UNIT TREATER Patient has diabetic eye disease Care Plan Patient has diabetic eye disease No Viera, Tatum, BATCH UNIT TREATER Patient has diabetic eye disease Care Plan Patient has diabetic eye disease No Viera, Tatum, BATCH UNIT TREATER Patient has chronic kidney disease Care Plan Patient has chronic kidney disease No Viera, Tatum, BATCH UNIT TREATER Patient has chronic kidney disease Care Plan Patient has chronic kidney disease No Viera, Tatum, BATCH UNIT TREATER Patient has chronic kidney disease Care Plan Patient has chronic kidney disease No Viera, Tatum, BATCH UNIT TREATER Weekly blood pressure task Care Plan Weekly blood pressure task No MirandaLisa rodfer, PharmD Weekly blood pressure task Care Plan Weekly blood pressure task No MirandaLisa rodfer, PharmD Weekly blood pressure task Care Plan Weekly blood pressure task No MirandaLisa rodfer, PharmD Patient has diabetic eye disease Care Plan Patient has diabetic eye disease No Miranda, Radha, PharmD Patient has diabetic eye disease Care Plan Patient has diabetic eye disease No MirandaMarybethRadha, PharmD Patient has diabetic eye disease Care Plan Patient has diabetic eye disease No MirandaMarybethRadha, PharmD Patient has chronic kidney disease Care Plan Patient has chronic kidney disease No MirandaMarybethRadha, PharmD Patient has chronic kidney disease Care Plan Patient has chronic kidney disease No MirandaaMrybethRadha, PharmD Patient has chronic kidney disease Care Plan Patient has chronic kidney disease No MirandaLisa rodfer, PharmD Weekly blood pressure task Care Plan Weekly blood pressure task No PuiaFeliceNelia, PharmD Weekly blood pressure task Care Plan Weekly blood pressure task No PuiaFeliceNelia, PharmD Weekly blood pressure task Care Plan Weekly blood pressure task No Puia Nelia, PharmD Patient has diabetic eye disease [...] Weekly blood pressure task No Dalila Mantilla BATCH UNIT TREATER Patient has diabetic eye disease Care Plan Patient has diabetic eye disease No Dalila Mantilla LPN Patient has diabetic eye disease Care Plan Patient has diabetic eye disease No Jose Rafael, Dalila, BATCH UNIT TREATER Patient has diabetic eye disease Care Plan Patient has diabetic eye disease No Jose RafaelDalila atkins, BATCH UNIT TREATER Patient has chronic kidney disease Care Plan Patient has chronic kidney disease No Jose RafaelDalila atkins, BATCH UNIT TREATER Patient has chronic kidney disease Care Plan Patient has chronic kidney disease No Jose RafaelDalila atkins, BATCH UNIT TREATER Patient has chronic kidney disease Care Plan Patient has chronic kidney disease No Dalila Mantilla BATCH UNIT TREATER Weekly blood pressure task Care Plan Weekly [...] Patient has diabetic eye disease No Colon Geovanna Carreno Patient has diabetic eye disease Care Plan Patient has diabetic eye disease No Geovanna Pearson Patient has chronic kidney disease Care Plan Patient has chronic kidney disease No Izzy Pearsonla Patient has chronic [...] Weekly blood pressure task No Jose RafaelSabinaDalila, BATCH UNIT TREATER Weekly blood pressure task Care Plan Weekly blood pressure task No Jose Rafael, Dalila, BATCH UNIT TREATER Weekly blood pressure task Care Plan Weekly blood pressure task No Jose RafaelSabinaDalila, BATCH UNIT TREATER Patient has diabetic eye disease Care Plan Patient has diabetic eye disease No Jose RafaelSabinaDalila, BATCH UNIT TREATER Patient has diabetic eye disease Care Plan Patient has diabetic eye disease No Jose RafaelSabinaDalila, BATCH UNIT TREATER Patient has diabetic eye disease Care Plan Patient has diabetic eye disease No Jose RafaelSabinaDalila, BATCH UNIT TREATER Patient has chronic kidney disease Care Plan Patient has chronic kidney disease No Jose RafaelSabinaDalila, BATCH UNIT TREATER Patient has chronic kidney disease Care Plan Patient has chronic kidney disease No Jose RafaelSabinaDalila, BATCH UNIT TREATER Patient has chronic kidney disease Care Plan Patient has chronic kidney disease No Jose RafaelSabinaDalila, BATCH UNIT TREATER Weekly blood pressure task Care Plan Weekly blood pressure task No Jose RafaelSabinaDalila, BATCH UNIT TREATER Weekly blood pressure task Care Plan Weekly blood pressure task No Jose RafaelSabinaDalila, BATCH UNIT TREATER Weekly blood pressure task Care Plan Weekly blood pressure task No Jose RafaelSabinaDalila, BATCH UNIT TREATER Patient has diabetic eye disease Care Plan Patient has diabetic eye disease No Jose Rafael, Dalila, BATCH UNIT TREATER Patient has diabetic eye disease Care Plan Patient has diabetic eye disease No Jose Rafael Dalila, BATCH UNIT TREATER Patient has diabetic eye disease Care Plan Patient has diabetic eye disease No Jose Rafael Dalila, BATCH UNIT TREATER Patient has chronic kidney disease Care Plan Patient has chronic kidney disease No Jose Rafael Dalila, BATCH UNIT TREATER Patient has chronic kidney disease Care Plan Patient has chronic kidney disease No Jose RafaelSabinaDalila, BATCH UNIT TREATER Patient has chronic kidney disease Care Plan Patient has chronic kidney disease No Jose RafaelSabinaDalila, BATCH UNIT TREATER Weekly blood pressure task Care Plan Weekly blood pressure task No Tracy Jaysha Weekly blood pressure task Care Plan Weekly blood pressure task No Trayc Jaysha Weekly blood pressure task Care Plan Weekly blood pressure task No Tracy Jaysha Patient has diabetic eye disease Care Plan Patient has diabetic eye disease No Tracy Jaysha Patient has diabetic eye disease Care Plan Patient has diabetic eye disease No Tracy Jaysha Patient has diabetic eye disease Care Plan Patient has diabetic eye disease No Tracy Jaysha Patient has chronic kidney disease Care Plan Patient has chronic kidney disease No Tracy, Jaysha Patient has chronic kidney disease Care Plan Patient has chronic kidney disease No Tracy Jaysha Patient has chronic kidney disease Care Plan Patient has chronic kidney disease No Tracy Jaysha Weekly blood pressure task Care Plan Weekly blood pressure task No Umang Hampton Weekly blood pressure task Care Plan Weekly blood pressure task No Umang Hampton Weekly blood pressure task Care Plan Weekly blood pressure task No Umang Hampton Patient has diabetic eye disease Care Plan Patient has diabetic eye disease No Umang Hampton Patient has diabetic eye disease Care Plan Patient has diabetic eye disease No Umang Hampton Patient has diabetic eye disease Care Plan Patient has diabetic eye disease No Umang Hampton Patient has chronic kidney disease Care Plan Patient has chronic kidney disease No Umang Hampton Patient has chronic kidney disease Care Plan Patient has chronic kidney disease No Umang Hampton Patient has chronic kidney disease Care Plan Patient has chronic kidney disease No Umang Hampton Weekly blood pressure task Care Plan Weekly blood pressure task No Tarka, Radha, OD Weekly blood pressure task Care Plan Weekly blood pressure task No Tarka, Radha, OD Weekly blood pressure task Care Plan Weekly blood pressure task No Tarka, Radha, OD Patient has diabetic eye disease Care Plan Patient has diabetic eye disease No Tarka, Radha, OD Patient has diabetic eye disease Care Plan Patient has diabetic eye disease No Tarka, Radha, OD Patient has diabetic eye disease Care Plan Patient has diabetic eye disease No Tarka, Radha, OD Patient has chronic kidney disease Care Plan Patient has chronic kidney disease No Tarka, Radha, OD Patient has chronic kidney disease Care Plan Patient has chronic kidney disease No Tarka, Radha, OD Patient has chronic kidney disease Care Plan Patient has chronic kidney disease No Tarka, Radha, OD Weekly blood pressure task Care Plan Weekly [...] Plan Patient has chronic kidney disease No PuiaFeliceNelia, PharmD Patient has chronic kidney disease Care Plan Patient has chronic kidney disease No PuiaFeliceNelia, PharmD Weekly blood pressure task Care Plan Weekly blood pressure task No Madhav Fatimaril, PharmD Weekly blood pressure task Care Plan Weekly blood pressure task No Madhav Fatimaril, PharmD Weekly blood pressure task Care Plan Weekly blood pressure task No FatimaMadhavril, PharmD Patient has diabetic eye disease Care Plan Patient has diabetic eye disease No FatimaMadhavril, PharmD Patient has diabetic eye disease Care Plan Patient has diabetic eye disease No FatimaMadhavril, PharmD Patient has diabetic eye disease Care Plan Patient has diabetic eye disease No FatimaMadhavril, PharmD Patient has chronic kidney disease Care Plan Patient has chronic kidney disease No FatimaMadhavril, PharmD Patient has chronic kidney disease Care Plan Patient has chronic kidney disease No Madhav Fatimaril, PharmD Patient has chronic kidney disease Care Plan Patient has chronic kidney disease No Madhav Fatimaril, PharmD Weekly blood pressure task Care Plan [...] chronic kidney disease No MirandaLisa rodfer, PharmD Weekly blood pressure task Care Plan [...] chronic kidney disease No Dalila Carson RN documented as of this encounter Visit Diagnoses [...] kidney disease 03/06/2025 Weekly blood pressure task 03/07/2025 Weekly blood pressure task 03/07/2025 Weekly blood pressure task 03/07/2025 Patient has diabetic eye disease 03/07/2025 Patient has diabetic eye disease 03/07/2025 Patient has diabetic eye disease 03/07/2025 Patient has chronic kidney disease 03/07/2025 Patient has chronic kidney disease 03/07/2025 Patient has chronic kidney disease 03/07/2025 Weekly blood pressure task 03/13/2025 Weekly blood pressure task 03/13/2025 Weekly blood pressure task 03/13/2025 Patient has diabetic eye disease 03/13/2025 Patient has diabetic eye disease 03/13/2025 Patient has diabetic eye disease 03/13/2025 Patient has chronic kidney disease 03/13/2025 Patient has chronic kidney disease 03/13/2025 Patient has chronic kidney disease 03/13/2025 Weekly blood pressure task 03/17/2025 Weekly blood pressure task 03/17/2025 Weekly blood pressure task 03/17/2025 Patient has diabetic eye disease 03/17/2025 Patient has diabetic eye disease 03/17/2025 Patient has diabetic eye disease 03/17/2025 Patient has chronic kidney disease 03/17/2025 Patient has chronic kidney disease 03/17/2025 Patient has chronic kidney disease 03/17/2025 Weekly blood pressure task 03/17/2025 Weekly blood pressure task 03/17/2025 Weekly blood pressure task 03/17/2025 Patient has diabetic eye disease 03/17/2025 Patient has diabetic eye disease 03/17/2025 Patient has diabetic eye disease 03/17/2025 Patient has chronic kidney disease 03/17/2025 Patient has chronic kidney disease 03/17/2025 Patient has chronic kidney disease 03/17/2025 Weekly blood pressure task 03/17/2025 Weekly blood pressure task 03/17/2025 Weekly blood pressure task 03/17/2025 Patient has diabetic eye disease 03/17/2025 Patient has diabetic eye disease 03/17/2025 Patient has diabetic eye disease 03/17/2025 Patient has chronic kidney disease 03/17/2025 Patient has chronic kidney disease 03/17/2025 Patient has chronic kidney disease 03/17/2025 Weekly blood pressure task 03/18/2025 Weekly blood pressure task 03/18/2025 Weekly blood pressure task 03/18/2025 Patient has diabetic eye disease 03/18/2025 Patient has diabetic eye disease 03/18/2025 Patient has diabetic eye disease 03/18/2025 Patient has chronic kidney disease 03/18/2025 Patient has chronic kidney disease 03/18/2025 Patient has chronic kidney disease 03/18/2025 Weekly blood pressure task 03/19/2025 Weekly blood pressure task 03/19/2025 Weekly blood pressure task 03/19/2025 Patient has diabetic eye disease 03/19/2025 Patient has diabetic eye disease 03/19/2025 Patient has diabetic eye disease 03/19/2025 Patient has chronic kidney disease 03/19/2025 Patient has chronic kidney disease 03/19/2025 Patient has chronic kidney disease 03/19/2025 Weekly blood pressure task 03/20/2025 Weekly blood pressure task 03/20/2025 Weekly blood pressure task 03/20/2025 Patient has diabetic eye disease 03/20/2025 Patient has diabetic eye disease 03/20/2025 Patient has diabetic eye disease 03/20/2025 Patient has chronic kidney disease 03/20/2025 Patient has chronic kidney disease 03/20/2025 Patient has chronic kidney disease 03/20/2025 Assessment Noted Time PHQ-9 Depression Total Score: 16 025 2:10 PM EDT documented as of this encounter Care Teams Fixing Carpenter Relationship Specialty Start Date End Date Radha Jamison DO [address] [place] [address] PCP - General Family Medicine 01/26/12 Nelia Sullivan PharmD [address] [place] [address] Pharmacist Internal Medicine 08/31/23 Dalila Carson RN [address] [place] [id number] Registered Nurse Family Medicine 12/31/24 Ekta Reynolds 12/31/24 Laurel Monterroso Food Safety TechnicianFur Floor Worker 02/20/25 Saige Aguilar 09/26/23 documented as of this encounter
--- OUTSIDE RECORDS SUMMARY | 2025-03-25 12:34 | XMS_ITS | Encounter Summary ---
Author Organization [employer] Address [address] [facility] 7t [place] [address] Care Team Providers Care Glass Or Mirror Inspector Name Role Phone Radha Jamison DO Primary Care Provider Nelia Sullivan PharmD Unavailable [phone] Dalila Carson RN Unavailable [phone] Ekta Reynolds Unavailable Reason for Visit * Reason Comments Med Refill Encounter Details Date Type Department Care Team (Late st Contact Info) Description 03/18/2025 Refill [facility] P[facility]S [address] [place] [address] Radha Jamison DO [address] [place] [address] Hypertension, unspecified type Social History Tobacco Use [...] Care Team (Late st Contact Info) Description 04/18/2025 11:00 AM EST Medication Management [facility] MEDICINE [address] [place] [address] AnaiiaNelia, PharmD [address] [place] [address] documented as of this encounter Goals Goal Patient Goal Type Associated Problems Recent Progress Patient-Stated? Author Record your blood pressure once per day Blood Pressure No Puia, Nelia, PharmD Blood Pressure < 140/90 Blood Pressure 180/72(2025 11:39 AM EST) No Puia, Nelia, PharmD Smoking cessation General No Puia, Nelia, PharmD Patient will adhere to medication regimen General No Puia, Nelia, PharmD Hemoglobin A1c < 7 Result Component 10.9(03/17/19 26 1:19 PM EST) No Abdias Murillo PharmD [...] Plan Weekly blood pressure task No Fam, Feilcia Weekly blood pressure task Care Plan Weekly [...] Weekly blood pressure task No Tatum Viera LPN Weekly blood pressure task Care Plan Weekly blood pressure task No Tatum Viera LPN Weekly blood pressure task Care Plan Weekly blood pressure task No Tatum Viera BOILER WATER TESTER Patient has diabetic eye disease Care Plan Patient has diabetic eye disease No Tatum Viera BOILER WATER TESTER Patient has diabetic eye disease Care Plan Patient has diabetic eye disease No Tatum Viera LPN Patient has diabetic eye disease Care Plan Patient has diabetic eye disease No Viera, Tatum, BOILER WATER TESTER Patient has chronic kidney disease Care Plan Patient has chronic kidney disease No Viera, Tatum, BOILER WATER TESTER Patient has chronic kidney disease Care Plan Patient has chronic kidney disease No Viera, Tatum, BOILER WATER TESTER Patient has chronic kidney disease Care Plan Patient has chronic kidney disease No Viera, Tatum, BOILER WATER TESTER Weekly blood pressure task Care Plan Weekly [...] Plan Patient has chronic kidney disease No MirandaLisaRadha, PharmD Weekly blood pressure task Care Plan [...] blood pressure task No Jose RafaelDalila atkins BOILER WATER TESTER Weekly blood pressure task Care Plan Weekly blood pressure task No Dalila Mantilla BOILER WATER TESTER Weekly blood pressure task Care Plan Weekly blood pressure task No Jose RafaelDalila atkins, BOILER WATER TESTER Patient has diabetic eye disease Care Plan Patient has diabetic eye disease No Jose RafaelDalila atkins, BOILER WATER TESTER Patient has diabetic eye disease Care Plan Patient has diabetic eye disease No Jose RafaelDalila atkins BOILER WATER TESTER Patient has diabetic eye disease Care Plan Patient has diabetic eye disease No Jose RafaelDalila atkins, BOILER WATER TESTER Patient has chronic kidney disease Care Plan Patient has chronic kidney disease No Jose RafaelDalila atkins, BOILER WATER TESTER Patient has chronic kidney disease Care Plan Patient has chronic kidney disease No Jose RafaelDalila atkins, BOILER WATER TESTER Patient has chronic kidney disease Care Plan Patient has chronic kidney disease No Jose RafaelDalila atkins, BOILER WATER TESTER Weekly blood pressure task Care Plan Weekly [...] Weekly blood pressure task No Jose RafaelSabinaDalila, BOILER WATER TESTER Weekly blood pressure task Care Plan Weekly blood pressure task No Jose RafaelSabinaDalila, BOILER WATER TESTER Weekly blood pressure task Care Plan Weekly blood pressure task No Jose Rafael, Dalila, BOILER WATER TESTER Patient has diabetic eye disease Care Plan Patient has diabetic eye disease No Jose Rafael, Dalila, BOILER WATER TESTER Patient has diabetic eye disease Care Plan Patient has diabetic eye disease No Jose Rafael, Dalila, BOILER WATER TESTER Patient has diabetic eye disease Care Plan Patient has diabetic eye disease No Jose Rafael, Dalila, BOILER WATER TESTER Patient has chronic kidney disease Care Plan Patient has chronic kidney disease No Jose RafaelSabinaDalila, BOILER WATER TESTER Patient has chronic kidney disease Care Plan Patient has chronic kidney disease No Jose Rafael, Dalila, BOILER WATER TESTER Patient has chronic kidney disease Care Plan Patient has chronic kidney disease No Jose Rafael, Dalila, BOILER WATER TESTER Weekly blood pressure task Care Plan Weekly blood pressure task No Jose RafaelSabinaDalila, BOILER WATER TESTER Weekly blood pressure task Care Plan Weekly blood pressure task No Jose Rafael Dalila, BOILER WATER TESTER Weekly blood pressure task Care Plan Weekly blood pressure task No Jose Rafael, Dalila, BOILER WATER TESTER Patient has diabetic eye disease Care Plan Patient has diabetic eye disease No Jose Rafael, Dalila, BOILER WATER TESTER Patient has diabetic eye disease Care Plan Patient has diabetic eye disease No Jose Rafael, Dalila, BOILER WATER TESTER Patient has diabetic eye disease Care Plan Patient has diabetic eye disease No Jose Rafael, Dalila, BOILER WATER TESTER Patient has chronic kidney disease Care Plan Patient has chronic kidney disease No Jose Rafael, Dalila, BOILER WATER TESTER Patient has chronic kidney disease Care Plan Patient has chronic kidney disease No Jose Rafael, Dalila, BOILER WATER TESTER Patient has chronic kidney disease Care Plan Patient has chronic kidney disease No Jose Rafael, Dalila, BOILER WATER TESTER Weekly blood pressure task Care Plan Weekly blood pressure task No Radha Tracy Weekly blood pressure task Care Plan Weekly blood pressure task No Tracy, Jaysha Weekly blood pressure task Care Plan [...] Plan Patient has chronic kidney disease No TracySalvadorysha Patient has chronic kidney disease Care Plan Patient has chronic kidney disease No TracySalvadorysha Patient has chronic kidney disease Care Plan Patient has chronic kidney disease No TracySalvadorysha Weekly blood pressure task Care Plan Weekly blood pressure task No BeUmang greco Weekly blood pressure task Care Plan Weekly blood pressure task No BeUmang greco Weekly blood pressure task Care Plan Weekly blood pressure task No BeUmang greco Patient has diabetic eye disease Care Plan Patient has diabetic eye disease No Umagn Hampton Patient has diabetic eye disease Care [...] Plan Weekly blood pressure task No Radha Taylor, OD Weekly blood pressure task Care Plan Weekly blood pressure task No Radha Taylor, OD Weekly blood pressure task Care Plan Weekly blood pressure task No Radha Taylor, OD Patient has diabetic eye disease Care Plan Patient has diabetic eye disease No Ashly Taylorica, OD Patient has diabetic eye disease Care Plan Patient has diabetic eye disease No Ashly Taylorica, OD Patient has diabetic eye disease Care Plan Patient has diabetic eye disease No TarAshly bangica, OD Patient has chronic kidney disease Care Plan Patient has chronic kidney disease No Ashly Taylorica, OD Patient has chronic kidney disease Care Plan Patient has chronic kidney disease No Ashly Taylorica, OD Patient has chronic kidney disease Care Plan Patient has chronic kidney disease No TarRadha bang, OD Weekly blood pressure task Care Plan [...] Weekly blood pressure task No FatimaMadhavril, PharmD Weekly blood pressure task Care Plan Weekly blood pressure task No Fatima Jerril, PharmD Weekly blood pressure task Care Plan Weekly blood pressure task No Fatima, Jerril, PharmD Patient has diabetic eye disease Care Plan Patient has diabetic eye disease No FatimaMadhavril, PharmD Patient has diabetic eye disease Care Plan Patient has diabetic eye disease No Fatima, Jerril, PharmD Patient has diabetic eye disease Care Plan Patient has diabetic eye disease No Birgit Fatima PharmAdrian Patient has chronic kidney disease Care Plan Patient has chronic kidney disease No Birgit Fatima PharmAdrian Patient has chronic kidney disease Care Plan Patient has chronic kidney disease No Birgit Fatima PharmAdrian Patient has chronic kidney disease Care Plan Patient has chronic kidney disease No Birgit Fatima PharmD Weekly blood pressure task Care Plan Weekly blood pressure task No Radha Miranda PharmD Weekly blood pressure task Care Plan Weekly blood pressure task No Radha Miranda PharmAdrian Weekly blood pressure task Care Plan Weekly blood pressure task No Radha Miranda PharmAdrian Patient has diabetic eye disease Care Plan Patient has diabetic eye disease No Radha Miranda PharmAdrian Patient has diabetic eye disease Care Plan Patient has diabetic eye disease No Radha Miranda PharmAdrian Patient has diabetic eye disease Care Plan Patient has diabetic eye disease No Radha Miranda PharmAdrian Patient has chronic kidney disease Care Plan Patient has chronic kidney disease No Radha Miranda PharmAdrian Patient has chronic kidney disease Care Plan Patient has chronic kidney disease No Radha Miranda PharmAdrian Patient has chronic kidney disease Care Plan Patient has chronic kidney disease No Radha Miranda PharmD documented as of this encounter Visit [...] 03/18/2025 Patient has chronic kidney disease 03/18/2025 Assessment Noted Time PHQ-9 Depression Total Score: 16 025 2:10 PM EDT documented as of this encounter Care Teams Glass Or Mirror Inspector Relationship Specialty Start Date End Date Radha Jamison DO [address] [place] [address] PCP - General Family Medicine 01/26/12 Nelia Sullivan PharmD [address] [place] [address] Pharmacist Internal Medicine 08/31/23 Dalila Carson, JOANN [address] [place] [address] Registered Nurse Family Medicine 12/31/24 Ekta Reynolds 12/31/24 Laurel Monterroso Chrome Plater HelperDrum Stenciler 02/20/25 Sagie Aguilar 09/26/23 documented as of this encounter
--- OUTSIDE RECORDS SUMMARY | 2025-03-25 12:35 | XMS_ITS | Encounter Summary ---
Author Organization [facility] [employer] Address [address] [facility] 7t [place] [address] Care Team Providers Care Stone Mason Name Role Phone Radha Jamison DO Primary Care Provider Abdias Murillo PharmD Unavailable Unavail able Nelia Sullivan PharmD Unavailable Letty Rinaldi Unavailable Dalila Carson RN Unavailable [phone] Ekta Reynolds Unavailable Reason for Visit * Reason Comments Med Refill Encounter Details Date Type Department Care Team (Late st Contact Info) Description 08/11/2022 Refill [facility] MEDICINE [address] [place], [place] [phone] Radha Jamison DO [address] [place], [place] [phone] Anemia, unspecified type Social History Tobacco Use [...] for patient to contact Mary Reynolds at [phone]. documented in this encounter Plan of Treatment Upcoming Encounters Date Type Department Care Team (Late st Contact Info) Description 04/18/2025 11:00 AM EST Medication Management [facility] MEDICINE [address] [place] [address] Nelia Sullivan PharmD [address] [place] [address] documented as of this encounter Goals Goal Patient Goal Type Associated Problems Recent Progress Patient-Stated? Author Hemoglobin A1c < 7 Result Component 10.9( 1:19 PM EST) No Abdias Murillo, PharmD documented as of this encounter Visit Diagnoses Diagnosis Anemia, unspecified type documented in this encounter Additional Health Concerns Assessment Noted Time PHQ-9 Depression Total Score: 14 023 12:00 PM EST documented as of this encounter Care Teams Stone Mason Relationship Specialty Start Date End Date Radha Jamison DO [address] [place] [phone] PCP - General Family Medicine 01/26/12 Abdias Murillo, PharmD [address] [place] [address] Pharmacist Internal Medicine 03/21/22 08/30/23 Nelia Sullivan PharmD [address] [place] [address] Pharmacist Internal Medicine 08/31/23 Letty Rinaldi 12/16/24 12/18/24 Dalila Carson, RN [address] [place] [address] Registered Nurse Family Medicine 12/31/24 Ekta Reynolds 12/31/24 Laurel Monterroso Shuttle Fitting SupervisorSupervisor Mill 02/20/25 Saige Aguilar 09/26/23 documented as of this encounter
--- OUTSIDE RECORDS SUMMARY | 2025-03-25 12:35 | XMS_ITS | Encounter Summary ---
Author Organization [employer] Address [address] [facility] 7t [place] [address] Care Team Providers Care Sales Forecast Analyst Name Role Phone Radha Jamison DO Primary Care Provider Nelia Sullivan PharmD Unavailable Letty Rinaldi Unavailable Dalila Carson RN Unavailable [phone] Ekta Reynolds Unavailable Reason for Visit * Reason Onset Date Comments Returning Call 01/17/2024 Hospital Follow-up 01/17/2024 Encounter Details Date Type Department Care Team (Late st Contact Info) Description 01/17/2024 Telephone [facility] MEDICINE [address] [place], [place] [phone] Radha Jamison DO [address] [place], [place] [phone] Returning Call ; Hospital Follow-up Social History [...] Description 04/18/2025 11:00 AM EST Medication Management [facility] MEDICINE [address] [place] [address] Nelia Sullivan, PharmD [address] [place], [place] [phone] documented as of this encounter Goals Goal Patient Goal Type Associated Problems Recent Progress Patient-Stated? Author Record your blood pressure once per day Blood Pressure No PuiaNelia, PharmD Blood Pressure < 140/90 Blood Pressure 180/72(2025 11:39 AM EST) No Anaiia Nelia, PharmD Smoking cessation General No Puia, Nelia, PharmD Patient will adhere to medication regimen General No Puia Nelia, PharmD Hemoglobin A1c < 7 Result Component 10.9(03/17/19 1:19 PM EST) No DellogRod cottois, PharmD Record [...] as of this encounter Care Teams Sales Forecast Analyst Relationship Specialty Start Date End Date Radha Jamison DO [address] [place] [address] PCP - General Family Medicine 01/26/12 Nelia Sullivan, PharmD [address] [place] [address] Pharmacist Internal Medicine 08/31/23 Letty Rinaldi 12/16/24 12/18/24 Dalila Carson, JOANN [address] [place] [address] Registered Nurse Family Medicine 12/31/24 Ekta Reynolds 12/31/24 Laurel Monterroso Marina Sales And Service SupervisorDisability Aide 02/20/25 Saige Aguilar 09/26/23 documented as of this encounter
--- OUTSIDE RECORDS SUMMARY | 2025-03-25 12:35 | XMS_ITS | Encounter Summary ---
Author Organization [employer] Address [address] [facility] 7t [place] [address] Care Team Providers Care Twisthand Name Role Phone Radha Jamison DO Primary Care Provider Nelia Sullivan PharmD Unavailable Letty Rinaldi Unavailable Dalila Carson RN Unavailable [phone] Ekta Reynolds Unavailable Reason for Visit * Reason Comments Med Refill Encounter Details Date Type Department Care Team (Late st Contact Info) Description 03/19/[address] [facility] MEDICINE [address] [place], [place] [phone] Radha Jamison DO [address] [place], [place] [phone] Chronic bilateral low back pain, unspecified whether [...] Description 04/18/2025 11:00 AM EST Medication Management [facility] MEDICINE [address] [place] [address] Nelia Sullivan, PharmD [address] [place] [address] documented as of this encounter Goals Goal [...] documented as of this encounter Care Teams Twisthand Relationship Specialty Start Date End Date Radha Jamison DO [address] [place] [address] PCP - General Family Medicine 01/26/12 Nelia Sullivan PharmD [address] [place] [address] Pharmacist Internal Medicine 08/31/23 Letty Rinaldi 12/16/24 12/18/24 Dalila Carson, JOANN [address] [place] [address] Registered Nurse Family Medicine 12/31/24 Ekta Reynolds 12/31/24 Laurel Monterroso Boiler Coverer HelperEtl Informatica Developer 02/20/25 Saige Aguilar 09/26/23 documented as of this encounter
--- OUTSIDE RECORDS SUMMARY | 2025-03-25 12:35 | XMS_ITS | Encounter Summary ---
Author Organization [employer] Address [address] [facility] 7t [place] [address] Care Team Providers Care Spring Forger Name Role Phone Radha Jamison DO Primary Care Provider Nelia Sullivan PharmD Unavailable Letty Rinaldi Unavailable Dalila Carson RN Unavailable [phone] Ekta Reynolds Unavailable Reason for Visit * Reason Comments Med Refill Encounter Details Date Type Department Care Team (Late st Contact Info) Description 05/17/2024 Refill [facility] MEDICINE [address] [place], [place] [phone] Radha Jamison DO [address] [place], [place] [phone] Chronic bilateral low back pain, unspecified whether [...] Description 04/18/2025 11:00 AM EST Medication Management [facility] MEDICINE [address] [place] [address] Nelia Sullivan, PharmD [address] [place] [address] documented as of this encounter Goals Goal [...] documented as of this encounter Care Teams Spring Forger Relationship Specialty Start Date End Date Radha Jamison DO [address] [place] [address] PCP - General Family Medicine 01/26/12 Nelia Sullivan PharmD [address] [place] [address] Pharmacist Internal Medicine 08/31/23 Letty Rinaldi 12/16/24 12/18/24 Dalila Carson, JOANN [address] [place] [address] Registered Nurse Family Medicine 12/31/24 Ekta Reynolds 12/31/24 Laurel Monterroso Rug Drying Machine OperatorMeterman 02/20/25 Saige Aguilar 09/26/23 documented as of this encounter
--- OUTSIDE RECORDS SUMMARY | 2025-03-25 12:35 | XMS_ITS | Encounter Summary ---
Author Organization [employer] Address [address] [facility] 7t [place] [address] Care Team Providers Care Career Portals Teacher Name Role Phone Radha Jamison DO Primary Care Provider Abdias Murillo PharmD Unavailable Unavail able Nelia Sullivan PharmD Unavailable [phone] Letty Rinaldi Unavailable Dalila Carson RN Unavailable [phone] Ekta Reynolds Unavailable Encounter Details Date Type Department Care Team (Late st Contact Info) Description 06/15/2023 Orders Only [facility] MEDICINE [address] [place], [place] [phone] Radha Jamison DO [address] [place], [place] [phone] Stenosis of right carotid artery Social History [...] Description 04/18/2025 11:00 AM EST Medication Management [facility] MEDICINE [address] [place] [address] Nelia Sullivan PharmD [address] [place] [address] documented as of this encounter Goals Goal Patient Goal Type Associated Problems Recent Progress Patient-Stated? Author Hemoglobin A1c < 7 Result Component 10.9( 6 1:19 PM EST) No Abdias Murillo, PharmD [...] documented as of this encounter Care Teams Career Portals Teacher Relationship Specialty Start Date End Date Radha Jamison DO [address] [place] [address] PCP - General Family Medicine 01/26/12 Abdias Murillo, PharmD [address] [place] [address] Pharmacist Internal Medicine 03/21/22 08/30/23 Nelia Sullivan PharmD [address] [place] [address] Pharmacist Internal Medicine 08/31/23 Letty Rinaldi 12/16/24 12/18/24 Dalila Carson, JOANN [address] [place] [address] Registered Nurse Family Medicine 12/31/24 Ekta Reynolds 12/31/24 Laurel Monterroso Client EvaluatorPaper Tester 02/20/25 Saige Aguilar 09/26/23 documented as of this encounter
--- OUTSIDE RECORDS SUMMARY | 2025-03-25 12:35 | XMS_ITS | Encounter Summary ---
Author Organization [employer] Address 75 [facility] 7t [place] [address] Care Team Providers Care Float Tender Name Role Phone Radha Jamison DO Primary Care Provider Nelia Sullivan PharmD Unavailable [phone] Letty Rinaldi Unavailable Dalila Carson RN Unavailable [phone] Ekta Reynolds Unavailable Reason for Visit * Reason Onset Date Comments Nurse Triage 10/07/2024 Encounter Details Date Type Department Care Team (Late st Contact Info) Description 10/07/2024 Telephone [facility] MEDICINE [address] [place], [place] [phone] Radha Jamison DO [address] [place], [place] [phone] Nurse Triage Social History Tobacco Use Types [...] 10/07/2024 12:10 PM EDT Triage call with [facility] ethanol operations manager [place] [id number] Pt reports swelling of bilateral lower extremities [...] advised to come to the WIC at [facility] to be seen by provider open till [...] caller accepted this outcome. Contact pt at [phone] documented in this encounter Plan of Treatment Upcoming Encounters Date Type Department Care Team (Late st Contact Info) Description 04/18/2025 11:00 AM EST Medication Management [facility] MEDICINE [address] [place] [address] PuiaYazminsa, PharmD [address] [place] [address] documented as of this encounter Goals Goal [...] Component 10.9(03/17/19 1:19 PM EST) No Abdias Murillo, PharmAdrian Record your blood [...] documented as of this encounter Care Teams Float Tender Relationship Specialty Start Date End Date Radha Jamison DO [address] [place] [address] PCP - General Family Medicine 01/26/12 Nelia Sullivan PharmD [address] [place] [address] Pharmacist Internal Medicine 08/31/23 Letty Rinaldi 12/16/24 12/18/24 Dalila Carson, JOANN [address] [place] [address] Registered Nurse Family Medicine 12/31/24 Ekta Reynolds 12/31/24 Laurel Monterroso Manager ManagingFleet Salesperson 02/20/25 Saige Aguilar 09/26/23 documented as of this encounter
--- OUTSIDE RECORDS SUMMARY | 2025-03-25 12:35 | XMS_ITS | Encounter Summary ---
Author Organization [employer] Address [address] [facility] 7t [place] [address] Care Team Providers Care Hot Metal Mixer Operator Helper Name Role Phone Radha Jamison DO Primary Care Provider Abdias Murillo PharmD Unavailable Unavail able Nelia Sullivan PharmD Unavailable Letty Rinaldi Unavailable Dalila Carson RN Unavailable [phone] Ekta Reynolds Unavailable Reason for Visit * Reason Comments Med Refill Encounter Details Date Type Department Care Team (Late st Contact Info) Description 04/14/2023 Refill [facility] MEDICINE [address] [place], [place] [phone] Radha Jamison DO [address] [place], [place] [phone] Type 2 diabetes mellitus with hyperglycemia, with long-term current use of insulin ([facility]) Social History Tobacco Use Types Packs/Day [...] Description 04/18/2025 11:00 AM EST Medication Management [facility] MEDICINE [address] [place] [address] Nelia Sullivan PharmD [address] [place] [address] documented as of this encounter Goals Goal [...] documented as of this encounter Care Teams Hot Metal Mixer Operator Helper Relationship Specialty Start Date End Date Radha Jamison DO [address] [place] [address] PCP - General Family Medicine 01/26/12 Abdias Murillo, PharmD [address] [place] [address] Pharmacist Internal Medicine 03/21/22 08/30/23 Nelia Sullivan, KeithD [address] [place] [address] Pharmacist Internal Medicine 08/31/23 Letty Rinaldi 12/16/24 12/18/24 Dalila Carson, RN [address] [place] [address] Registered Nurse Family Medicine 12/31/24 Ekta Reynolds 12/31/24 Laurel Monterroso Relay Record ClerkBath Attendant 02/20/25 Saige Aguilar 09/26/23 documented as of this encounter
--- OUTSIDE RECORDS SUMMARY | 2025-03-25 12:35 | XMS_ITS | Encounter Summary ---
Author Organization [employer] Address [address] [facility] 7t [place] [address] Care Team Providers Care Grout Machine Tender Name Role Phone Radha Jamison DO Primary Care Provider [phone] Nelia Sullivan PharmD Unavailable [phone] Letty Rinaldi Unavailable Dalila Carson RN Unavailable [phone] Ekta Reynolds Unavailable Reason for Visit * Reason Onset Date Comments Med Refill 03/06/2024 Encounter Details Date Type Department Care Team (Late st Contact Info) Description 03/06/2024 Telephone [facility] [address] [place], [place] [phone] Radha Jamison DO [address] [place], [place] [phone] Med Refill Social History Tobacco Use Types [...] immediate release tablet To be sent to: [facility] pharmacy documented in this encounter Plan of Treatment Upcoming Encounters Date Type Department Care Team (Late st Contact Info) Description 04/18/2025 11:00 AM EST Medication Management [facility] [address] [place] [address] Nelia Sullivan, PharmD [address] [place], [place] [phone] documented as of this encounter Goals Goal Patient Goal Type Associated Problems Recent Progress Patient-Stated? Author Record your blood pressure once per day Blood Pressure No PuiaYazminsa, PharmD Blood Pressure < 140/90 Blood Pressure 180/72(2025 11:39 AM EST) No AnaiiaFeliceNelia, PharmD Smoking cessation General No Puia, Nelia, PharmD Patient will adhere to medication regimen General No Puia, Nelia, PharmD Hemoglobin A1c < 7 Result Component 10.9(03/17/19 26 1:19 PM EST) No Abdias Murillo, PharmD Record [...] documented as of this encounter Care Teams Grout Machine Tender Relationship Specialty Start Date End Date Radha Jamison DO [address] [place] [address] PCP - General Family Medicine 01/26/12 Nelia Sullivan PharmD [address] [place] [address] Pharmacist Internal Medicine 08/31/23 Letty Rinaldi 12/16/24 12/18/24 Dalila Carson, JOANN [address] [place] [address] Registered Nurse Family Medicine 12/31/24 Ekta Reynolds 12/31/24 Laurel Monterroso Reimbursement ConsultantSpray Cementer 02/20/25 Saige Aguilar 09/26/23 documented as of this encounter
--- OUTSIDE RECORDS SUMMARY | 2025-03-25 12:35 | XMS_ITS | Encounter Summary ---
Author Organization [employer] Address [address] [facility] 7t [place] [address] Care Team Providers Care Chorus Dancer Name Role Phone Radha Jamison DO Primary Care Provider Nelia Sullivan PharmD Unavailable Dalila Carson RN Unavailable Ekta Reynolds Unavailable Encounter Details Date Type Department Care Team (Late st Contact Info) Description 03/18/2025 Refill [facility] [address] [place] [address] Radha Jamison DO [address] [facility] [place] [address] Hypertension, unspecified type; Other chronic pain Social History Tobacco Use Types Packs/Day Years [...] Description 04/18/2025 11:00 AM EST Medication Management [facility] [address] [place] [address] Nelia Sullivan, PharmD [address] [place] [address] documented as of this encounter Goals Goal [...] Plan Patient has chronic kidney disease No Meghnaa Carr MA Weekly blood pressure task Care [...] chronic kidney disease No Nelia Sullivan, PharmD Patient has chronic kidney disease Care [...] Weekly blood pressure task No [place] [facility] Weekly blood pressure task Care Plan Weekly blood pressure task No [place] [facility] Weekly blood pressure task Care Plan Weekly blood pressure task No [place] [facility], [facility] REP Patient has diabetic eye disease Care Plan Patient has diabetic eye disease No [place] [facility], [facility] RE[facility] Patient has diabetic eye disease Care Plan Patient has diabetic eye disease No [place] [facility], [facility] REP Patient has diabetic eye disease Care Plan Patient has diabetic eye disease No [facility], [place], [facility] REP Patient has chronic kidney disease Care Plan Patient has chronic kidney disease No [facility], [place], [facility] REP Patient has chronic kidney disease Care Plan Patient has chronic kidney disease No [facility], [place], [facility] REP Patient has chronic kidney disease Care Plan Patient has chronic kidney disease No [facility], [place], [facility] REP Weekly blood pressure task Care Plan Weekly [...] blood pressure task No Jose RafaelDalila atkins, [facility] REP Weekly blood pressure task Care Plan Weekly blood pressure task No Jose RafaelDalila atkins LPN Weekly blood pressure task Care Plan Weekly blood pressure task No Jose RafaelDalila atkins, [facility] REP Patient has diabetic eye disease Care Plan Patient has diabetic eye disease No Jose RafaelDalila atkins, [facility] REP Patient has diabetic eye disease Care Plan Patient has diabetic eye disease No Jose RafaelDalila atkins [facility] REP Patient has diabetic eye disease Care Plan Patient has diabetic eye disease No Jose RafaelDalila atkins, [facility] REP Patient has chronic kidney disease Care Plan Patient has chronic kidney disease No Jose RafaelDalila atkins, [facility]CT [facility] REP Patient has chronic kidney disease Care Plan Patient has chronic kidney disease No Jose RafaelDalila atkins, CONTACT C[facility] REP Patient has chronic kidney disease Care Plan Patient has chronic kidney disease No Jose RafaelDalila atkins, CON[facility]CT [facility] REP Weekly blood pressure task Care Plan Weekly blood pressure task No Ekta Reynolds Weekly blood pressure task Care Plan Weekly blood pressure task No Ekta Reynolds Weekly blood pressure task Care Plan Weekly blood pressure task No Ekat Reynolds Patient has diabetic eye disease Care [...] Weekly blood pressure task No Jose RafaelSabinaDalila, CONTACT CENTER REP Weekly blood pressure task Care Plan Weekly blood pressure task No Jose RafaelSabinaDalila, CON[facility]CT C[facility] REP Weekly blood pressure task Care Plan Weekly blood pressure task No Jose Rafael, [place], CONTACT C[facility] REP Patient has diabetic eye disease Care Plan Patient has diabetic eye disease No Jose Rafael, [place], CONTACT C[facility] REP Patient has diabetic eye disease Care Plan Patient has diabetic eye disease No Jose Rafael, [place], CON[facility]CT C[facility] REP Patient has diabetic eye disease Care Plan Patient has diabetic eye disease No Jose Rafael, [place], CONTACT C[facility] REP Patient has chronic kidney disease Care Plan Patient has chronic kidney disease No Jose Rafael, [place], CONTACT C[facility] REP Patient has chronic kidney disease Care Plan Patient has chronic kidney disease No Jose Rafael, [place], CONTACT C[facility] REP Patient has chronic kidney disease Care Plan Patient has chronic kidney disease No Jose Rafael, [place], CONTACT C[facility] REP Weekly blood pressure task Care Plan Weekly blood pressure task No Jsoe RafaelSabinaDalila, CONTACT CENTER REP Weekly blood pressure task Care Plan Weekly blood pressure task No Jose Rafael, [place], CONTACT C[facility] REP Weekly blood pressure task Care Plan Weekly blood pressure task No Jose Rafael, [place], CONTACT C[facility] REP Patient has diabetic eye disease Care Plan Patient has diabetic eye disease No Jose Rafael, [place], CONTACT C[facility] REP Patient has diabetic eye disease Care Plan Patient has diabetic eye disease No Jose Rafael, [place], CONTACT C[facility] REP Patient has diabetic eye disease Care Plan Patient has diabetic eye disease No Jose Rafael, [place], CONTACT CENTER REP Patient has chronic kidney disease Care Plan Patient has chronic kidney disease No Jose Rafael, [place], CONTACT CENTER REP Patient has chronic kidney disease Care Plan Patient has chronic kidney disease No Jose Rafael, [place], CONTACT CENTER REP Patient has chronic kidney disease Care Plan Patient has chronic kidney disease No Jose Rafael, [place], CONTACT CENTER REP Weekly blood pressure task Care Plan Weekly blood pressure task No Radha Tracy Weekly blood pressure task Care Plan Weekly blood pressure task No Tracy, Jaysha Weekly blood pressure task Care Plan Weekly blood pressure task No Tracy, Jaysha Patient has diabetic eye disease Care Plan Patient has diabetic eye disease No Tracy, Jaysha Patient has diabetic eye disease Care Plan Patient has diabetic eye disease No Tracy, Jaysha Patient has diabetic eye disease Care Plan Patient has diabetic eye disease No Tracy, Jaysha Patient has chronic kidney disease Care Plan Patient has chronic kidney disease No Tracy, Jaysha Patient has chronic kidney disease Care Plan Patient has chronic kidney disease No Tracy Jaysha Patient has chronic kidney disease Care Plan Patient has chronic kidney disease No Tracy, Jaysha Weekly blood pressure task Care Plan Weekly blood pressure task No BejasminezileJaydenUmang Weekly blood pressure task Care Plan Weekly blood pressure task No Bejasminezimeliton Umang Weekly blood pressure task Care Plan Weekly blood pressure task No BeJayden grecoouard Patient has diabetic eye disease Care Plan Patient has diabetic eye disease No BeUmang greco Patient has diabetic eye disease Care Plan Patient has diabetic eye disease No BeJayden grecoouard Patient has diabetic eye disease Care Plan Patient has diabetic eye disease No BeJayden grecoouard Patient has chronic kidney disease Care Plan Patient has chronic kidney disease No BeJayden grecoouard Patient has chronic kidney disease Care Plan Patient has chronic kidney disease No BeJayden grecoouard Patient has chronic kidney disease Care Plan Patient has chronic kidney disease No Beangus Umang Weekly blood pressure task Care Plan Weekly blood pressure task No Radha Taylor, OD Weekly blood pressure task Care Plan Weekly blood pressure task No Radha Taylor, OD Weekly blood pressure task Care Plan Weekly blood pressure task No TarBa bangRadha, OD Patient has diabetic eye disease Care Plan Patient has diabetic eye disease No TarAshly bangica, OD Patient has diabetic eye disease Care Plan Patient has diabetic eye disease No TarAshly bangica, OD Patient has diabetic eye disease Care Plan Patient has diabetic eye disease No TarBa bangRadha, OD Patient has chronic kidney disease Care Plan Patient has chronic kidney disease No TarAshly bangica, OD Patient has chronic kidney disease Care Plan Patient has chronic kidney disease No TarAshly bangica, OD Patient has chronic kidney disease Care Plan Patient has chronic kidney disease No TarAshly bangica, OD Weekly blood pressure task Care Plan [...] blood pressure task No Fatima, Jerril, PharmD Weekly blood pressure task Care Plan Weekly blood pressure task No Fatima, Jerril, PharmD Patient has diabetic eye disease Care Plan Patient has diabetic eye disease No Fatima, Jerril, PharmD Patient has diabetic eye disease Care Plan Patient has diabetic eye disease No Fatima, Jerril, PharmD Patient has diabetic eye disease Care Plan Patient has diabetic eye disease No Birgit Fatima PharmD Patient has chronic kidney disease Care Plan Patient has chronic kidney disease No Birgit Fatima PharmD Patient has chronic kidney disease Care [...] blood pressure task No Radha Miranda PharmD Patient has diabetic eye disease Care Plan Patient has diabetic eye disease No Radha Miranda PharmD Patient has diabetic eye disease Care Plan Patient has diabetic eye disease No Radha Miranda PharmD Patient has diabetic eye disease Care Plan Patient has diabetic eye disease No Radha Miranda PharmD Patient has chronic kidney disease Care Plan Patient has chronic kidney disease No Radha Miranda PharmD Patient has chronic kidney disease Care Plan Patient has chronic kidney disease No Radha Miranda PharmD Patient has chronic kidney disease Care Plan Patient has chronic kidney disease No Radha Miranda PharmD documented as of this encounter Visit Diagnoses Diagnosis Hypertension, unspecified type Other chronic pain documented in this encounter Additional Health Concerns [...] documented as of this encounter Care Teams Chorus Dancer Relationship Specialty Start Date End Date Radha Jamison DO [address] [place] [address] PCP - General Family Medicine 01/26/12 Nelia Sullivan PharmD [address] [place] [address] Pharmacist Internal Medicine 08/31/23 Dalila Carson, JOANN [address] [place] [address] Registered Nurse Family Medicine 12/31/24 Ekta Reynolds 12/31/24 Laurel Monterroso Wire Fence BuilderGlove Machine Operator 02/20/25 Saige Aguilar 09/26/23 documented as of this encounter
--- OUTSIDE RECORDS SUMMARY | 2025-03-25 12:35 | XMS_ITS ---
Author Organization [employer] Address [address] [facility] 7t [place] [address] Care Team Providers Care Leaf Coverer Name Role Phone Radha Jamison DO Primary Care Provider Nelia Sullivan PharmD Unavailable Dalila Carson RN Unavailable [phone] Ekta Reynolds Unavailable CM Complex Status:Outreach In Progress (Enrolling) Start date:12/31/2024 Enrollment reason:Referred by provider Overview Home Health Utilization- Please coordinate with Dalila for connection of services with LOSS PREVENTION AUDITOR for mcfp reduction. Case Team Name Relationship Phone Dalila Carson RN(Responsible Staff) Registered Nurse [phone] Continued Care and Services Coordination
--- OUTSIDE RECORDS SUMMARY | 2025-03-25 12:35 | XMS_ITS ---
Author Organization [employer] Address [address] [facility] 7t [place] [address] Care Team Providers Care Web Application Dev Specialist Name Role Phone Radha Jamison DO Primary Care Provider Nelia Sullivan PharmD Unavailable [phone] Dalila Carson RN Unavailable [phone] Ekta Reynolds Unavailable CHW Complex Status:Outreach In Progress (Enrolling) Start date:12/31/2024 Enrollment reason:Referred by provider Overview Home Health Utilization- Please coordinate with Dalila for connection of services with GARNETT MACHINE OPERATOR for long-term reduction. Please outreach for enrollment. Case Team Name Relationship Phone Ekta Reynolds(Responsible Staff) [phone] Continued Care and Services Coordination
--- OUTSIDE RECORDS SUMMARY | 2025-03-25 12:35 | XMS_ITS | Encounter Summary ---
Author Organization [employer] Address [address] [facility] 7t [place] [address] Care Team Providers Care Strategic Alliances Manager Name Role Phone Radha Jamison DO Primary Care Provider Abdias Murillo PharmD Unavailable Unavail able Nelia Sullivan PharmD Unavailable Letty Rinaldi Unavailable Dalila Carson RN Unavailable [phone] Ekta Reynolds Unavailable Reason for Visit * Reason Comments Med Refill Encounter Details Date Type Department Care Team (Late st Contact Info) Description 04/14/2023 Refill [facility] [address] [place], [place] [phone] Radha Jamison DO [address] [place], [place] [phone] Type 2 diabetes mellitus with hyperglycemia, with long-term current use of insulin ([facility]) Social History Tobacco Use Types Packs/Day Years [...] Description 04/18/2025 11:00 AM EST Medication Management [facility] [address] [place] [address] Nelia Sullivan PharmD [address] [place] [address] documented as of this encounter Goals Goal [...] as of this encounter Care Teams Strategic Alliances Manager Relationship Specialty Start Date End Date Radha Jamison DO [address] [place] [address] PCP - General Family Medicine 01/26/12 Abdias Murillo, PharmD [address] [place] [address] Pharmacist Internal Medicine 03/21/22 08/30/23 Nelia Sullivan, KeithD [address] [place] [address] Pharmacist Internal Medicine 08/31/23 Letty Rinaldi 12/16/24 12/18/24 Dalila Carson, RN [address] [place] [address] Registered Nurse Family Medicine 12/31/24 Ekta Reynolds 12/31/24 Laurel Monterroso Extension AssociateMedical Instructor 02/20/25 Saige Aguilar 09/26/23 documented as of this encounter
--- OUTSIDE RECORDS SUMMARY | 2025-03-25 12:35 | XMS_ITS | Encounter Summary ---
Author Organization [employer] Address 75 [facility] 7t [place] [address] Care Team Providers Care Harp Repairer Name Role Phone Radha Jamison DO Primary Care Provider Nelia Sullivan PharmD Unavailable [phone] Letty Rinaldi Unavailable Dalila Carson RN Unavailable [phone] Ekta Reynolds Unavailable Reason for Visit * Reason Comments Med Refill Encounter Details Date Type Department Care Team (Late st Contact Info) Description 05/07/2024 Refill [facility] [address] [place], [place] [phone] Radha Jamison DO [address] [place], [place] [phone] Social History Tobacco Use Types Packs/Day Years [...] 11:00 AM EST Medication Management [facility] [address] [place] [address] Nelia Sullivan, PharmD [address] [place] [address] documented as of this encounter Goals Goal [...] documented as of this encounter Care Teams Harp Repairer Relationship Specialty Start Date End Date Radha Jamison DO [address] [place] [address] PCP - General Family Medicine 01/26/12 Nelia Sullivan PharmD [address] [place] [address] Pharmacist Internal Medicine 08/31/23 Letty Rinaldi 12/16/24 12/18/24 Dalila Carson, JOANN [address] [place] [address] Registered Nurse Family Medicine 12/31/24 Ekta Reynolds 12/31/24 Laurel Monterroso Rn Emergency RoomSalesperson Neckties 02/20/25 Saige Aguilar 09/26/23 documented as of this encounter
--- OUTSIDE RECORDS SUMMARY | 2025-03-25 12:35 | XMS_ITS | Encounter Summary ---
Author Organization [employer] Address [address] [facility] 7t [place] [address] Care Team Providers Care Industrial Maintenance Technician Name Role Phone Radha Jamison DO Primary Care Provider Nelia Sullivan PharmD Unavailable [phone] Letty Rinaldi Unavailable Dalila Carson RN Unavailable [phone] Ekta Reynolds Unavailable Reason for Visit * Reason Onset Date Comments Med Refill 05/07/2024 Encounter Details Date Type Department Care Team (Late st Contact Info) Description 05/07/2024 Telephone [facility] MEDICINE [address] [place], [place] [phone] Radha Jamison DO [address] [place], [place] [phone] Med Refill Social History Tobacco Use Types [...] immediate release tablet To be sent to: [facility] Pharmacy documented in this encounter Plan of Treatment Upcoming Encounters Date Type Department Care Team (Late st Contact Info) Description 04/18/2025 11:00 AM EST Medication Management [facility] MED[facility] [address] [place] [address] Nelia Sullivan, PharmD [address] [place] [address] documented as of this encounter Goals Goal Patient Goal Type Associated Problems Recent Progress Patient-Stated? Author Record your blood pressure once per day Blood Pressure No Nelia Sullivan, PharmD Blood Pressure < 140/90 Blood Pressure 180/72(2025 11:39 AM EST) No Nelia Sullivan, PharmD Smoking cessation General No PuiaFeliceNelia, PharmD Patient will adhere to medication regimen General No Nelia Sullivan, PharmD Hemoglobin A1c < 7 Result Component 10.9(03/17/19 26 1:19 PM EST) No DelAbdias hardy, PharmD Record [...] documented as of this encounter Care Teams Industrial Maintenance Technician Relationship Specialty Start Date End Date Radha Jamison DO [address] [place] [address] PCP - General Family Medicine 01/26/12 Nelia Sullivan PharmD [address] [place] [address] Pharmacist Internal Medicine 08/31/23 Letty Rinaldi 12/16/24 12/18/24 Dalila Carson, JOANN [address] [place] [address] Registered Nurse Family Medicine 12/31/24 Ekta Reynolds 12/31/24 Laurel Monterroso Smoke ChaserSite Coordinator 02/20/25 Saige Aguilar 09/26/23 documented as of this encounter
--- OUTSIDE RECORDS SUMMARY | 2025-03-25 12:35 | XMS_ITS | Encounter Summary ---
Author Organization [employer] Address [address] [facility] 7t [place] [address] Care Team Providers Care Balance Recesser Name Role Phone Radha Jamison DO Primary Care Provider Nelia Sullivan PharmD Unavailable [phone] Letty Rinaldi Unavailable Dalila Carson RN Unavailable [phone] Ekta Reynolds Unavailable Reason for Visit * Reason Comments Med Refill Encounter Details Date Type Department Care Team (Late st Contact Info) Description 03/05/2024 Telephone [facility] [address] [place], [place] [phone] Radha Jamison DO [address] [place], [place] [phone] Med Refill Social History Tobacco Use Types [...] Description 04/18/2025 11:00 AM EST Medication Management [facility] [address] [place] [address] AnaiiaNelia, PharmD [address] [place] [address] documented as of this encounter Goals Goal [...] documented as of this encounter Care Teams Balance Recesser Relationship Specialty Start Date End Date Radha Jamison DO [address] [place] [address] PCP - General Family Medicine 01/26/12 Nelia Sullivan PharmD [address] [place] [address] Pharmacist Internal Medicine 08/31/23 Letty Rinaldi 12/16/24 12/18/24 Dalila Carson, JOANN [address] [place] [address] Registered Nurse Family Medicine 12/31/24 Ekta Reynolds 12/31/24 Laurel Monterroso Lead Massage TherapistIndustrial Technology Education Teacher 02/20/25 Saige Aguilar 09/26/23 documented as of this encounter
--- OUTSIDE RECORDS SUMMARY | 2025-03-25 12:35 | XMS_ITS | Encounter Summary ---
Author Organization [employer] Address [address] [facility] 7t [place] [address] Care Team Providers Care Check And Transfer Beader Name Role Phone Radha Jamison DO Primary Care Provider Nelia Sullivan PharmD Unavailable Letty Rinaldi Unavailable Dalila Carson RN Unavailable [phone] Ekta Reynolds Unavailable Reason for Visit * Reason Comments Med Refill Encounter Details Date Type Department Care Team (Late st Contact Info) Description 02/29/2024 Refill [facility] [address] [place], [place] [phone] Radha Jamison DO [address] [place], [place] [phone] Chronic bilateral low back pain, unspecified whether [...] until seen by PCP or seen by LONG TERM CARE PHLEBOTOMIST. Scheduled LONG TERM CARE PHLEBOTOMIST 03/05/24. documented in this encounter Plan of Treatment Upcoming Encounters Date Type Department Care Team (Late st Contact Info) Description 04/18/2025 11:00 AM EST Medication Management [facility] [address] [place] [address] Nelia Sullivan, PharmD [address] [place], [place] [phone] documented as of this encounter Goals Goal [...] documented as of this encounter Care Teams Check And Transfer Beader Relationship Specialty Start Date End Date Radha Jamison DO [address] [place] [address] PCP - General Family Medicine 01/26/12 Nelia Sullivan PharmD [address] [place] [address] Pharmacist Internal Medicine 08/31/23 Letty Rinaldi 12/16/24 12/18/24 Dalila Carson, JOANN [address] [place] [address] Registered Nurse Family Medicine 12/31/24 Ekta Reynolds 12/31/24 Laurel Monterroso Sander HandJava J2Ee Architect 02/20/25 Saige Aguilar 09/26/23 documented as of this encounter
--- OUTSIDE RECORDS SUMMARY | 2025-03-25 12:35 | XMS_ITS | Encounter Summary ---
Author Organization [employer] Address [address] [facility] 7t [place] [address] Care Team Providers Care Firer Kiln Name Role Phone Radha Jamison DO Primary Care Provider Nelia Sullivan PharmD Unavailable [phone] Letty Rinaldi Unavailable Dalila Carson RN Unavailable [phone] Ekta Reynolds Unavailable Reason for Visit * Reason Comments Med Refill Encounter Details Date Type Department Care Team (Late st Contact Info) Description 05/17/2024 Refill [facility] [address] [place], [place] [phone] Radha Jamison DO [address] [place], [place] [phone] Chronic bilateral low back pain, unspecified whether [...] Description 04/18/2025 11:00 AM EST Medication Management [facility] [address] [place] [address] Nelia Sullivan, PharmD [address] [place] [address] documented as of this encounter Goals Goal [...] documented as of this encounter Care Teams Firer Kiln Relationship Specialty Start Date End Date Radha Jamison DO [address] [place] [address] PCP - General Family Medicine 01/26/12 Nelia Sullivan PharmD [address] [place] [address] Pharmacist Internal Medicine 08/31/23 Letty Rinaldi 12/16/24 12/18/24 Dalila Carson, JOANN [address] [place] [address] Registered Nurse Family Medicine 12/31/24 Ekta Reynolds 12/31/24 Laurel Monterroso Solutions AnalystChief Cook 02/20/25 Saige Aguilar 09/26/23 documented as of this encounter
--- OUTSIDE RECORDS SUMMARY | 2025-03-25 12:35 | XMS_ITS | Encounter Summary ---
Author Organization [employer] Address [address] [facility] 7t [place] [address] Care Team Providers Care Residue Furnace Operator Name Role Phone Radha Jamison DO Primary Care Provider Nelia Sullivan PharmD Unavailable [phone] Dalila Carson RN Unavailable [phone] Ekta Reynolds Unavailable Reason for Visit * Reason Comments Med Refill Encounter Details Date Type Department Care Team (Late st Contact Info) Description 03/17/2025 Refill [facility] MEDICINE [address] [place], [place] [phone] Radha Jamison DO [address] [place], [place] [phone] Social History Tobacco Use Types Packs/Day Years [...] Description 04/18/2025 11:00 AM EST Medication Management [facility] MEDICINE [address] [place] [address] Nelia Sullivan, PharmD [address] [place] [address] documented as of this encounter Goals Goal [...] Patient has diabetic eye disease No Meghana aCrr MA Help patients manage their type 2 [...] chronic kidney disease No Nelia Sullivan PharmD Patient has chronic kidney disease Care [...] Weekly blood pressure task No Tatum Viera ACADEMIC DIRECTOR Weekly blood pressure task Care Plan Weekly blood pressure task No Tatum Viera ACADEMIC DIRECTOR Weekly blood pressure task Care Plan Weekly blood pressure task No Tatum Viera, ACADEMIC DIRECTOR Patient has diabetic eye disease Care Plan Patient has diabetic eye disease No Tatum Viera, ACADEMIC DIRECTOR Patient has diabetic eye disease Care Plan Patient has diabetic eye disease No Tatum Viera, ACADEMIC DIRECTOR Patient has diabetic eye disease Care Plan Patient has diabetic eye disease No Viera, Tatum, ACADEMIC DIRECTOR Patient has chronic kidney disease Care Plan Patient has chronic kidney disease No Viera, Tatum, ACADEMIC DIRECTOR Patient has chronic kidney disease Care Plan Patient has chronic kidney disease No Viera, Tatum, ACADEMIC DIRECTOR Patient has chronic kidney disease Care Plan Patient has chronic kidney disease No Viera, Tatum, ACADEMIC DIRECTOR Weekly blood pressure task Care Plan Weekly [...] blood pressure task No Jose RafaelDalila atkins, ACADEMIC DIRECTOR Weekly blood pressure task Care Plan Weekly blood pressure task No Jose RafaelDalila atkins ACADEMIC DIRECTOR Weekly blood pressure task Care Plan Weekly blood pressure task No Jose RafaelSabina atkinsura, ACADEMIC DIRECTOR Patient has diabetic eye disease Care Plan Patient has diabetic eye disease No Jose RafaelDalila atkins, ACADEMIC DIRECTOR Patient has diabetic eye disease Care Plan Patient has diabetic eye disease No Jose RafaelDalila atkins ACADEMIC DIRECTOR Patient has diabetic eye disease Care Plan Patient has diabetic eye disease No Jose RafaelSabina atkinsura, ACADEMIC DIRECTOR Patient has chronic kidney disease Care Plan Patient has chronic kidney disease No Jose RafaelSabina atkinsura, ACADEMIC DIRECTOR Patient has chronic kidney disease Care Plan Patient has chronic kidney disease No Jose RafaelDalila atkins, ACADEMIC DIRECTOR Patient has chronic kidney disease Care Plan Patient has chronic kidney disease No Jose RafaelDalila atkins, ACADEMIC DIRECTOR Weekly blood pressure task Care Plan Weekly [...] Weekly blood pressure task No Jose RafaelSabinaDalila, ACADEMIC DIRECTOR Weekly blood pressure task Care Plan Weekly blood pressure task No Jose RafaelSabinaDalila, ACADEMIC DIRECTOR Weekly blood pressure task Care Plan Weekly blood pressure task No Jose Rafael, Dalila, ACADEMIC DIRECTOR Patient has diabetic eye disease Care Plan Patient has diabetic eye disease No Jose Rafael, Dalila, ACADEMIC DIRECTOR Patient has diabetic eye disease Care Plan Patient has diabetic eye disease No Jose Rafael, Dalila, ACADEMIC DIRECTOR Patient has diabetic eye disease Care Plan Patient has diabetic eye disease No Jose Rafael, Dalila, ACADEMIC DIRECTOR Patient has chronic kidney disease Care Plan Patient has chronic kidney disease No Jose RafaelSabinaDalila, ACADEMIC DIRECTOR Patient has chronic kidney disease Care Plan Patient has chronic kidney disease No Jose Rafael, Dalila, ACADEMIC DIRECTOR Patient has chronic kidney disease Care Plan Patient has chronic kidney disease No Jose Rafael, Dalila, ACADEMIC DIRECTOR Weekly blood pressure task Care Plan Weekly blood pressure task No Jose RafaelSabinaDalila, ACADEMIC DIRECTOR Weekly blood pressure task Care Plan Weekly blood pressure task No Jose Rafael, Dalila, ACADEMIC DIRECTOR Weekly blood pressure task Care Plan Weekly blood pressure task No Jose Rafael, Dalila, ACADEMIC DIRECTOR Patient has diabetic eye disease Care Plan Patient has diabetic eye disease No Jose Rafael, Dalila, ACADEMIC DIRECTOR Patient has diabetic eye disease Care Plan Patient has diabetic eye disease No Jose Rafael, Dalila, ACADEMIC DIRECTOR Patient has diabetic eye disease Care Plan Patient has diabetic eye disease No Jose Rafael, Dalila, ACADEMIC DIRECTOR Patient has chronic kidney disease Care Plan Patient has chronic kidney disease No Jose Rafael, Dalila, ACADEMIC DIRECTOR Patient has chronic kidney disease Care Plan Patient has chronic kidney disease No Jose Rafael, Dalila, ACADEMIC DIRECTOR Patient has chronic kidney disease Care Plan Patient has chronic kidney disease No Jose Rafael, Dalila, ACADEMIC DIRECTOR Weekly blood pressure task Care Plan Weekly [...] Care Plan Weekly blood pressure task No TarAshly bangica, OD Patient has diabetic [...] chronic kidney disease No Birgit Fatima PharmD documented as of this encounter Visit [...] 03/17/2025 Patient has chronic kidney disease 03/17/2025 Assessment Noted Time PHQ-9 Depression Total Score: 16 025 2:10 PM EDT documented as of this encounter Care Teams Residue Furnace Operator Relationship Specialty Start Date End Date Radha Jamison DO [address] [place] [address] PCP - General Family Medicine 01/26/12 Nelia Sullivan PharmD [address] [place] [address] Pharmacist Internal Medicine 08/31/23 Dalila Carson RN [address] [place] [address] [place] [address] Registered Nurse Family Medicine 12/31/24 Ekta Reynolds 12/31/24 Laurel Monterroso Engagement MgrScouring Machine Tender 02/20/25 Saige Aguilar 09/26/23 documented as of this encounter
--- OUTSIDE RECORDS SUMMARY | 2025-03-25 12:35 | XMS_ITS | Encounter Summary ---
Author Organization [employer] Address [address] [facility] 7t [place] [address] Care Team Providers Care Employment Law Specialist Name Role Phone Radha Jamison DO Primary Care Provider Abdias Murillo PharmD Unavailable Unavail able Nelia Sullivan PharmD Unavailable [phone] Letty Rinaldi Unavailable Dalila Carson RN Unavailable [phone] Ekta Reynolds Unavailable Reason for Visit * Reason Onset Date Comments uber 05/08/2023 Encounter Details Date Type Department Care Team (Late st Contact Info) Description 05/08/2023 Telephone [facility] MEDICINE [address] [place], [place] [phone] Radha Jamison DO 230 [place], [place] [phone] uber Social History Tobacco Use Types Packs/Day [...] / denial letter via mail. PT-1 Request [id number] Pending . [facility] [address] [place] [address] Railcar Switchman noticed pt has pending referrals. Railcar Switchman has added a note to each to add PT1 for referred tooffice. * Telephone Encounter - Ginna Stephen RN - 05/10/2023 9:31 AM EDT Uber booked for tomorrow 8:45am. TC placed to pt. And made pt. Aware. Pt. Also reports PT-1 expiredand would like it renewed for next time, to [facility] * Telephone Encounter - Ciera Carson - 05/10/2023 9:07 AM EDT Tc from pt calling in regards to message above. Pt also received a call, fiction and nonfiction prose writer does not see any documentation. Please contact pt at [phone] * Telephone Encounter - Ciera Alli - 05/08/2023 12:54 PM EDT Tc from pt states will need uber transportation for 05/10 OV with provider. Please contact pt at [phone] documented in this encounter Plan of Treatment Upcoming Encounters Date Type Department Care Team (Late st Contact Info) Description 04/18/2025 11:00 AM EST Medication Management [facility] MEDICINE [address] [place] [address] Nelia Sullivan PharmD [address] [place] [address] documented as of this encounter Goals Goal [...] documented as of this encounter Care Teams Employment Law Specialist Relationship Specialty Start Date End Date Radha Jamison DO [address] [place] [address] PCP - General Family Medicine 01/26/12 Abdias Murillo, PharmD [address] [place] [address] Pharmacist Internal Medicine 03/21/22 08/30/23 Nelia Sullivan, PharmD [address] [place] [address] Pharmacist Internal Medicine 08/31/23 Letty Rinaldi 12/16/24 12/18/24 Dalila Carson RN [address] [place] [address] [place] [address] Registered Nurse Family Medicine 12/31/24 Ekta Reynolds 12/31/24 Laurel Monterroso Binding PrinterRailway Patrol Officer 02/20/25 Saige Aguilar 09/26/23 documented as of this encounter
--- OUTSIDE RECORDS SUMMARY | 2025-03-25 12:35 | XMS_ITS | Encounter Summary ---
Author Organization [employer] Address [address] [facility] 7t [place] [address] Care Team Providers Care Engagement Engineer Name Role Phone Radha Jamison DO Primary Care Provider [phone] Nelia Sullivan PharmD Unavailable Letty Rinaldi Unavailable Dalila Carson RN Unavailable [phone] Ekta Reynolds Unavailable Reason for Visit * Reason Comments Med Refill Encounter Details Date Type Department Care Team (Late st Contact Info) Description 01/06/2024 Refill [facility] MEDICINE 230 [place], [place] [phone] Radha Jamison DO 230 [place], [place] [phone] Depression, unspecified depression type; Essential (primary) hypertension [...] Description 04/18/2025 11:00 AM EST Medication Management [facility] MEDICINE [address] [place] [address] Nelia Sullivan, PharmD [address] [place] [address] documented as of this encounter Goals Goal [...] documented as of this encounter Care Teams Engagement Engineer Relationship Specialty Start Date End Date Radha Jamison DO [address] [place] [address] PCP - General Family Medicine 01/26/12 Nelia Sullivan PharmD [address] [place] [address] Pharmacist Internal Medicine 08/31/23 Letty Rinaldi 12/16/24 12/18/24 Dalila Carson, RN [address] [place] [address] Registered Nurse Family Medicine 12/31/24 Ekta Reynolds 12/31/24 Laurel Monterroso Pickler HelperField Training Manager 02/20/25 Saige Aguilar 09/26/23 documented as of this encounter
--- OUTSIDE RECORDS SUMMARY | 2025-03-25 12:35 | XMS_ITS | Encounter Summary ---
Author Organization [employer] Address [address] [facility] 7t [place] [address] Care Team Providers Care Qa Internship Name Role Phone Radha Jamison DO Primary Care Provider Abdias Murillo PharmD Unavailable Unavail able Nelia Sullivan PharmD Unavailable [phone] Letty Rinaldi Unavailable Dalila Carson RN Unavailable [phone] Ekta Reynolds Unavailable Reason for Visit * Reason Comments Med Refill Encounter Details Date Type Department Care Team (Late st Contact Info) Description 06/06/2023 Refill [facility] 230 [place], [place] [phone] Radha Jamison DO 230 [place] [address] Chronic bilateral low back pain, unspecified whether [...] 11:00 AM EST Medication Management [facility] MEDICINE [address] [place] [address] Nelia Sullivan PharmD [address] [place] [address] documented as of this encounter Goals Goal [...] documented as of this encounter Care Teams Qa Internship Relationship Specialty Start Date End Date Radha Jamison DO [address] [place] [address] PCP - General Family Medicine 01/26/12 Abdias Murillo, PharmD [address] [place] [address] Pharmacist Internal Medicine 03/21/22 08/30/23 Nelia Sullivan, Camron [address] [place] [address] Pharmacist Internal Medicine 08/31/23 Letty Rinaldi 12/16/24 12/18/24 Dalila Carson, JOANN [address] [place] [address] Registered Nurse Family Medicine 12/31/24 Ekta Reynolds 12/31/24 Laurel Monterroso Core BlowerSales And Service Officer 02/20/25 Saige Aguilar 09/26/23 documented as of this encounter
--- OUTSIDE RECORDS SUMMARY | 2025-03-25 12:35 | XMS_ITS | Encounter Summary ---
Author Organization [employer] Address [address] [facility] 7t [place] [address] Care Team Providers Care Web Application Developer Name Role Phone Radha Jamison DO Primary Care Provider Nelia Sullivan PharmD Unavailable Letty Rinaldi Unavailable Dalila Carson RN Unavailable [phone] Ekta Reynolds Unavailable Reason for Visit * Reason Comments Med Refill Encounter Details Date Type Department Care Team (Late st Contact Info) Description 12/28/2023 Refill [facility] MEDICINE 230 [place], [place] [phone] Radha Jamison DO 230 [place], [place] [phone] Chronic bilateral low back pain, unspecified whether [...] EST Medication Management [facility] MEDICINE [address] [place] [address] Nelia Sullivan, PharmD 230 [place] [address] documented as of this encounter Goals Goal [...] as of this encounter Care Teams Web Application Developer Relationship Specialty Start Date End Date Radha Jamison DO 230 [place] [address] PCP - General Family Medicine 01/26/12 Nelia Sullivan PharmD 230 [place] [address] Pharmacist Internal Medicine 08/31/23 Letty Rinaldi 12/16/24 12/18/24 Dalila [place], JOANN [address] [place] [address] Registered Nurse Family Medicine 12/31/24 Ekta Reynolds 12/31/24 Laurel Monterroso Claim AdjusterLine Haul Driver 02/20/25 Saige Aguilar 09/26/23 documented as of this encounter
--- OUTSIDE RECORDS SUMMARY | 2025-03-25 12:36 | XMS_ITS | Encounter Summary ---
Author Organization [employer] Address [address] [facility] 7t [place] [address] Care Team Providers Care Section Forest Fire Warden Name Role Phone Radha Jamison DO Primary Care Provider Abdias Murillo PharmD Unavailable Unavail able Nelia Sullivan PharmD Unavailable Letty Rinaldi Unavailable Dalila Carson RN Unavailable [phone] Ekta Reynolds Unavailable Reason for Visit * Reason Comments Med Refill Encounter Details Date Type Department Care Team (Late Contact Info) Description 11/10/2022 Refill [facility] MEDICINE 230 [place], [place] [phone] Radha Jamison DO 230 [place] [address] Chronic gastroesophageal reflux disease Social History Tobacco [...] Department Care Team (Late Contact Info) Description 04/18/2025 11:00 AM EST Medication Management [facility] MEDICINE 230 [place] [address] Nelia Sullivan PharmD 230 [place] [address] documented as of this encounter Goals Goal [...] documented as of this encounter Care Teams Section Forest Fire Warden Relationship Specialty Start Date End Date Radha Jamison DO 230 [place] [address] PCP - General Family Medicine 01/26/12 Abdias Murillo, PharmD [address] [place] [address] Pharmacist Internal Medicine 03/21/22 08/30/23 Nelia Sullivan, PharmD 230 [place] [address] Pharmacist Internal Medicine 08/31/23 Letty Rinaldi 12/16/24 12/18/24 Dalila [place], JOANN [address] [place] [address] Registered Nurse Family Medicine 12/31/24 Ekta Reynolds 12/31/24 Laurel Monterroso Photogravure Press OperatorMetal Coater 02/20/25 Saige Aguilar 09/26/23 documented as of this encounter
--- OUTSIDE RECORDS SUMMARY | 2025-03-25 12:36 | XMS_ITS | Encounter Summary ---
Author Organization [employer] Address [address] [facility] 7t [place] [address] Care Team Providers Care Petroleum Engineering Teacher Name Role Phone Lisa Jamisonfer Primary Care Provider Abdias Murillo PharmD Unavailable Unavail able Nelia Sullivan PharmD Unavailable Letty Rinaldi Unavailable Dalila Carson RN Unavailable [phone] Ekta Reynolds Unavailable Reason for Visit * Reason Onset Date Comments Dental Exam 08/24/2023 Encounter Details Date Type Department Care Team (Late st Contact Info) Description 08/24/2023 Telephone [facility] DENTAL 230 [place] [address] Libby Siddiqui DDS [address] [place], [place] [phone] Dental Exam Social History Tobacco Use Types [...] Description 04/18/2025 11:00 AM EST Medication Management [facility] MEDICINE [address] [place], [place] [phone] Nelia Sullivan, KeithD 230 [place] [address] documented as of this encounter Goals Goal [...] documented as of this encounter Care Teams Petroleum Engineering Teacher Relationship Specialty Start Date End Date Radha Jamison DO 230 [place] [address] PCP - General Family Medicine 01/26/12 Abdias Murillo, PharmD 230 [place] [address] Pharmacist Internal Medicine 03/21/22 08/30/23 Nelia Sullivan PharmD 230 [place] [address] Pharmacist Internal Medicine 08/31/23 Letty Rinaldi 12/16/24 12/18/24 Dalila [place], JOANN [address] [place] [address] Registered Nurse Family Medicine 12/31/24 Ekta Reynolds 12/31/24 Laurel Monterroso Luggage RepairerCentral Processing Tech 02/20/25 Saige Aguilar 09/26/23 documented as of this encounter
--- OUTSIDE RECORDS SUMMARY | 2025-03-25 12:36 | XMS_ITS | Encounter Summary ---
Author Organization [employer] Address [address] [facility] 7t [place] [address] Care Team Providers Care Education Liaison Name Role Phone Radha Jamison DO Primary Care Provider Nelia Sullivan PharmD Unavailable Letty Rinaldi Unavailable Dalila Carson RN Unavailable [phone] Ekta Reynolds Unavailable Encounter Details Date Type Department Care Team (Late st Contact Info) Description 01/30/2024 Telephone [facility] PEDS [address] [place] [address] Radha Jamison DO 230 [place], [place] [phone] Social History Tobacco Use Types Packs/Day Years [...] Description 04/18/2025 11:00 AM EST Medication Management [facility] MEDICINE 230 [place] [address] Nelia Sullivan PharmD 230 [place] [address] documented as of this encounter Goals Goal [...] documented as of this encounter Care Teams Education Liaison Relationship Specialty Start Date End Date Radha Jamison DO 230 [place] [address] PCP - General Family Medicine 01/26/12 Nelia Sullivan, PharmD [address] [place] [address] Pharmacist Internal Medicine 08/31/23 Letty Rinaldi 12/16/24 12/18/24 Dalila [place], JOANN [address] [place] [address] Registered Nurse Family Medicine 12/31/24 Ekta Reynolds 12/31/24 Laurel Monterroso Drier Take Off TenderWolf Hunter 02/20/25 Saige Aguilar 09/26/23 documented as of this encounter
--- OUTSIDE RECORDS SUMMARY | 2025-03-25 12:36 | XMS_ITS | Encounter Summary ---
Author Organization [employer] Address [address] [facility] 7t [place] [address] Care Team Providers Care Supervisor Cap And Hat Production Name Role Phone Radha Jamison DO Primary Care Provider Abdias Murillo PharmD Unavailable Unavail able Nelia Sullivan PharmD Unavailable Letty Rinaldi Unavailable Dalila Carson RN Unavailable [phone] Ekta Reynolds Unavailable Reason for Visit * Reason Comments Med Refill Encounter Details Date Type Department Care Team (Late st Contact Info) Description 02/14/2023 Refill [facility] MEDICINE 230 [place], [place] [phone] Radha Jamison DO 230 [place], [place] [phone] Chronic bilateral low back pain, unspecified whether [...] Description 04/18/2025 11:00 AM EST Medication Management [facility] MEDICINE [address] [place] [address] Nelia Sullivan PharmD [address] [place] [address] documented as of this encounter Goals Goal [...] as of this encounter Care Teams Supervisor Cap And Hat Production Relationship Specialty Start Date End Date Radha Jamison DO [address] [place] [address] PCP - General Family Medicine 01/26/12 Abdias Murillo, PharmD [address] [place] [address] Pharmacist Internal Medicine 03/21/22 08/30/23 Nelia Sullivan, Camron [address] [place] [address] Pharmacist Internal Medicine 08/31/23 Letty Rinaldi 12/16/24 12/18/24 Dalila [place], RN [address] [place] [address] Registered Nurse Family Medicine 12/31/24 Ekta Reynolds 12/31/24 Laurel Monterroso Pharmacy Affairs AssistantDiesel Bus Mechanic 02/20/25 Saige Aguilar 09/26/23 documented as of this encounter
--- OUTSIDE RECORDS SUMMARY | 2025-03-25 12:36 | XMS_ITS | Encounter Summary ---
Author Organization [employer] Address [address] [facility] 7t [place] [address] Care Team Providers Care Provider Network Manager Name Role Phone Radha Jamison DO Primary Care Provider Abdias Murillo PharmD Unavailable Unavail able Nelia Sullivan PharmD Unavailable Letty Rinaldi Unavailable Dalila Carson RN Unavailable Ekta Reynolds Unavailable Reason for Visit * Reason Onset Date Comments Med Refill 10/18/2022 Encounter Details Date Type Department Care Team (Late st Contact Info) Description 10/18/2022 Telephone [facility] MEDICINE 230 [place], [place] [phone] Radha Jamison DO [address] [place], [place] [phone] Med Refill Social History Tobacco Use Types [...] PCP needed re:controlled medication. Pt's hx with FORMS DESIGNER appts is as follows: 05/05: Pt short [...] team nurses. Any questions, contact pt at [phone] (Greenlandic) * Telephone Encounter - Acacia Chakraborty RN [...] Description 04/18/2025 11:00 AM EST Medication Management [facility] MEDICINE 230 [place] [address] Nelia Sullivan PharmD [address] [place] [address] documented as of this encounter Goals Goal Patient Goal Type Associated Problems Recent Progress Patient-Stated? Author Hemoglobin A1c < 7 Result Component 10.9( 1:19 PM EST) No Abdias Murillo PharmD documented as of this encounter Visit Diagnoses Not on filedocumented in this encounter Additional Health Concerns Assessment Noted Time PHQ-9 Depression Total Score: 14 023 12:00 PM EST documented as of this encounter Care Teams Provider Network Manager Relationship Specialty Start Date End Date Radha Jamison DO [address] [place] [address] PCP - General Family Medicine 01/26/12 Abdias Murillo, PharmD [address] [place] [address] Pharmacist Internal Medicine 03/21/22 08/30/23 Nelia Sullivan PharmD [address] [place] [address] Pharmacist Internal Medicine 08/31/23 Letty Rinaldi 12/16/24 12/18/24 Dalila [place], JOANN [address] [place] [address] Registered Nurse Family Medicine 12/31/24 Ekta Reynolds 12/31/24 Laurel Monterroso Scroll AssemblerCeramics Engineer 02/20/25 Saige Aguilar 09/26/23 documented as of this encounter
--- OUTSIDE RECORDS SUMMARY | 2025-03-25 12:36 | XMS_ITS | Clinical Summary ---
Demographics Address [address] [place] [address] Mobile Phone Home Phone Preferred Language es Marital Status Unknown Islam Affiliation Unknown Race White Ethnic Group Unknown Author Organization [employer] Address [address] [facility] [facility] [address] [place] [address] Care Team Providers Care Curing Oven Attendant Name Role Phone ShaheenRadha Primary Care Provider Nelia Sullivan PharmD Unavailable [phone] Dalila Carson RN Unavailable [phone] Ekta Reynolds Unavailable Allergies Active Allergy [...] 2:27 PM EST 024 Active Continuous Glucose Concrete Worker (Domain InvestStyle Jenn 3 [place]) device 1 each 3 times daily. Use daily as directed for CGM 1 each 025 Active glucose blood (FreeStyle Precision Julian Test) test strip Use to test blood sugar 3 times daily 100 each 02/25/19 26 1:05 PM EST 025 2025 Active TRUEplus Lancets 33G misc TEST BLOOD SUGAR UP TO THREE TIMES DAILY DIRECTED 100 each 12/28/19 2:27 PM EST 025 Active Asmanex HFA 100 MCG/ACT aerosol INHALE 2 PUFFS BY MOUTH TWICE DAILY RINSE MOUTH AFTER USING. 13 g 02/25/19 1:05 PM EST 025 Active naloxone (Narcan) 4 mg/0.1 mL nasal sprayIndications:C hronic bilateral low back pain, unspecified whether sciatica present FOR SUSPECTED OPIOID OVERDOSE. SPRAY 0.1mL IN ONE NOSTRIL. REPEAT IN ALTERNATE NOSTRIL 2-3 MINUTES IF NEEDED. SEEK MEDICAL ATTENTION IMMEDIATELY EVEN IF PATIENT RESPONDS. 2 each 3 025 Active acetaminophen (Tylenol 8 Hour) 650 [...] MOUTH EVERY EVENING 90 tablet 025 Active fluticasone (Flonase) 50 MCG/ACT nasal spray INSTILL 2 SPRAYS IN EACH NOSTRIL ONCE DAILY 48 g 2 12/28/19 25 2:27 PM EST 025 Active Diclofenac Sodium 1 % gel APPLY 2 GRAMS TOPICALLY TO AFFECTED AREA(S) 4 TIMES A DAY IN THE MORNING, AT NOON, IN THE EVENING, AND AT BEDTIME NEEDED FOR PAIN 200 g 2 025 Active insulin pen needle (Pentips Generic Pen [place]) 32G x 4 mm miscIndications:Ty pe 2 diabetes mellitus with hyperglycemia, with long-term current use of insulin (HCC) Use as instructed to inject insulin once daily 100 each 3 12/28/19 25 2:27 PM EST 025 Active Ventolin HFA [...] MG SL tabletIndications: 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 CALL 911 IF NO RELIEF 25 tablet 1 025 Active escitalopram (Lexapro) 20 MG tabletIndications: Depression, unspecified depression type TAKE 1 TABLET BY MOUTH EVERY EVENING 90 tablet 3 02/25/19 26 1:05 PM EST 025 Active loratadine (Claritin) 10 MG tablet [...] 1 12/28/19 2:27 PM EST 025 Active rosuvastatin (Crestor) 40 MG tablet Take 1 tablet (40 mg) by mouth at bedtime. 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 Increase as directed to max of 30 units per day. 15 mL 1 01/29/20 10:44 AM EST 025 Active Eliquis 5 MG tabletIndications: Splenic infarct TAKE 1 TABLET BY MOUTH TWICE DAILY IN THE MORNING AND IN THE EVENING 60 tablet 3 02/25/19 1:05 PM EST 025 Active ezetimibe (Zetia) 10 MG tablet Take 1 tablet (10 mg) by mouth Once per day. 90 tablet 1 01/29/20 10:44 AM EST 025 Active mirtazapine (Remeron) 45 MG tabletIndications: Mood disorder (CMS/HCC) TAKE 1 TABLET BY MOUTH AT BEDTIME 30 tablet 3 026 Active empagliflozin-metF ORMIN (Synjardy) 12.5-1000 MG TAKE 1 TABLET BY MOUTH TWICE DAILY IN THE MORNING AND IN THE EVENING 60 tablet 5 026 Active Continuous Glucose Sensor (FreeStyle Jenn 3 Plus Sensor) miscIndications:Ty pe 2 diabetes mellitus with hyperglycemia, with long-term current use of insulin (HCC) Apply 1 every 15 days as directed for CGM 2 each 026 Active carvedilol (Coreg) 25 MG tabletIndications: Hypertension, unspecified type TAKE 1 TABLET BY MOUTH TWICE DAILY IN THE MORNING AND IN THE EVENING WITH FOOD 180 tablet 1 026 Active Multiple Vitamin (Multivitamin) tabletIndications: Hypertension, unspecified type TAKE 1 TABLET BY MOUTH EVERY MORNING WITH FOOD 90 tablet 026 Active omeprazole (PriLOSEC) [address] capsule Take 2 capsules (40 mg) by mouth before breakfast and before evening meal. Do not crush or chew. 360 capsule 3 026 Active hydroCHLOROthiazid e (HYDRODiuril) 50 MG tablet Take 1 tablet (50 mg) by mouth Once per day. 90 tablet 1 026 Active amitriptyline (Elavil) 50 MG tabletIndications: Other chronic pain Take 1 tablet (50 mg) by mouth at bedtime. 30 tablet 3 026 Active empagliflozin-metF ORMIN (Synjardy) 12.5-1000 MG Take 1 tablet by mouth with breakfast and with evening meal. 60 tablet 11 02/25/19 26 1:05 PM EST 2025 Discontinued omeprazole (PriLOSEC) [address] capsule TAKE 2 CAPSULES BY MOUTH TWICE DAILY IN THE MORNING AND EVENING WITH FOOD 360 capsule 3 12/28/19 25 2:27 PM EST 025 2025 Discontinued(R eorder (will not trigger notification to Pharmacy)) hydroCHLOROthiazid e (HYDRODiuril) 50 MG tablet Take 1 tablet (50 mg) by mouth Once per day. 90 tablet 1 12/28/19 25 2:27 PM EST 2025 Discontinued(R eorder (will not trigger notification to Pharmacy)) Semaglutide,0.25 or 0.5MG/DOS, (Ozempic, 0.25 or 0.5 MG/DOSE,) 2 MG/3ML solution pen-injectorIndica tions:Type 2 diabetes mellitus with hyperglycemia, with long-term current use of insulin (HCC) Inject 0.5 mg under the skin 1 (one) time per week. 3 mL 02/25/19 26 1:05 PM EST 025 2025 Discontinued(S latosha effects) carvedilol (Coreg) 25 MG tabletIndications: Hypertension, unspecified type TAKE 1 TABLET BY MOUTH TWICE DAILY IN THE MORNING AND IN THE EVENING WITH FOOD 180 tablet 1 12/28/19 25 2:27 PM EST 025 2025 Discontinued(R eorder (will not trigger notification to Pharmacy)) mirtazapine (Remeron) 45 MG tabletIndications: Mood disorder (CMS/HCC) TAKE 1 TABLET BY MOUTH AT BEDTIME 30 tablet 3 025 2025 Discontinued amitriptyline (Elavil) 50 MG tabletIndications: Other chronic pain TAKE 1 TABLET BY MOUTH AT BEDTIME 30 tablet 3 025 2025 Discontinued(R eorder (will not trigger notification to Pharmacy)) Multiple Vitamin (Multivitamin) tabletIndications: Hypertension, unspecified type TAKE 1 TABLET BY MOUTH EVERY MORNING WITH FOOD 90 tablet 12/28/19 25 2:27 PM EST 025 2025 Discontinued(R eorder (will not trigger notification to Pharmacy)) triamcinolone (Kenalog) 0.1 % ointment Apply topically if needed in the morning and at bedtime for rash for up to 28 days. 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 Obstructive sleep apnea 12/04/2014 Tobacco dependence [...] metformin and actos as rx'd -referred to [facility] pharm for CTDM -cont regular FS [...] the day and to continue care w avionics systems engineer and PCP ------ Addendum : EMT came and berry picker pt but once she was taken to ambulance pt decide not to go to ED and signed leave AMA 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 lvm) 03/19/2025 Patient Outreach [address] [address] Radha Jamison DO Care Coordination (CM/CHW appointment reminder) 03/18/2025 Refill [facility] [address] [place] [address] Radha Jamison DO Hypertension, unspecified type; Other chronic pain 03/18/2025 Refill [facility] [address] [place], [place] [phone] Radha Jamison DO Hypertension, unspecified type 03/17/[address] [phone] Nelia Sullivan, PharmD Prior Authorization (Jenn 3 plus sensors) 03/17/2025 Travel 03/17/[address] [phone] Radha Jamison DO 03/14/[address] [address] Nelia Sullivan, PharmD 03/06/[address] [address] Radha Jamison DO Care Coordination 03/06/[address] [address] Radha Jamison DO Care Coordination (Home Care Utilization Review Agency contacted) 03/05/[address] [address] Radha Jamison DO Care Coordination (Home Care Utilization Review and reduction of SN visits ) 03/05/2025 Orders Only GENERIC EXTERNAL DATA DEPARTMENT Provider, Generic External Data 03/05/2025 Patient Outreach [address] [address] Radha Jamison DO Care Coordination (Triage) 03/05/[address] [address] Radha Jamison DO Call Back Request 03/05/2025 Patient Outreach [address] [address] Radha Jamison DO Care Management (C3CM- initial assessment/ enrollment. lvm) 03/04/2025 Patient Outreach [address] [address] Radha Jamison DO Care Coordination (CM/CHW appointment reminder) 02/21/[address] [address] Radha Jamison DO 02/20/2025 Telephone [facility] [address] [place] [address] [phone] Radha Jamison DO Care Coordination (BHCP Care Plan) 02/16/[address] [address] Radha Jamison DO Mood disorder (CMS/HCC) 01/20/2025 Refill [facility] [address] [place] [address] Radha Jamison DO 01/17/2025 Refill [facility] [address] [place] [address] Vickie Penaloza MD Splenic infarct 01/07/[address] [address] Radha Jamison DO Appointment Request 01/07/2025 Travel 01/03/[address] [address] Radha Jamison DO Appointment Request 01/02/[address] [address] Radha Jamison DO Mood disorder (CMS/HCC) 12/31/2024 Patient Outreach [address] [address] Radha Jamison DO Care Coordination (CHW Chart Review) 12/31/2024 Patient Outreach [address] [address] Radha Jamison DO Care Management ([facility]- chart review) 12/31/2024 Patient Outreach [address] [address] Radha Jamison DO 12/30/[address] [address] Radha Jamison DO Appointment Request 12/27/2024 11:45 AM EST Office Visit [address] [address] Radha Jamison DO Type 2 diabetes mellitus with hyperglycemia, with long-term current use of insulin ([facility]) (Primary Dx); Resistant hypertension; 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; Bilateral carotid artery stenosis; Peripheral arterial disease; Mild persistent asthma without complication; Mood disorder (CMS/HCC); Chronic bilateral low back pain, unspecified whether sciatica present; Rash; Healthcare maintenance 12/27/2024 Travel 12/25/2024 Telephone [facility] [address] [place], [place] [phone] Radha Jamison DO Chart Prep 12/23/2024 Telephone [facility] [address] [place] [address] Audrey Foreman MD No Show from Last 3 Months Immunizations Immunization Administration [...] Sign Reading Time Taken Comments Blood Pressure 180/72 03/17/2025 11:39 AM EST Pulse 86 12/27/2024 11:58 AM [...] Description 04/18/2025 11:00 AM EST Medication Management [facility] [address] [place] [address] Nelia Sullivan, PharmD [address] [place] [address] Health Maintenance Due Date Last Done Comments [...] 11/18/2013, 2009 Lung Cancer Screening 01/08/2025 01/09/2024 Depression Monitoring 05/16/2025 11/15/2024, 025 Diabetes: Hemoglobin A1C 06/14/2025 026, 12/06/2024, 09/03/2024, Additional history exists Dental X-Ray: Full Mouth 07/13/2025 07/12/2022, 02/14 [...] 10.9(03/17/19 1:19 PM EST) No Abdias Murillo PharmAdrian Record [...] Care Plan Weekly blood pressure task No Joseu Reynolds Weekly blood pressure task Care Plan [...] Weekly blood pressure task No Viera, Tatum, NAT INSTRUCTOR Weekly blood pressure task Care Plan Weekly blood pressure task No Viera, Tatum, NAT INSTRUCTOR Weekly blood pressure task Care Plan Weekly blood pressure task No Viera, Tatum, NAT INSTRUCTOR Patient has diabetic eye disease Care Plan Patient has diabetic eye disease No Viera, Tatum, NAT INSTRUCTOR Patient has diabetic eye disease Care Plan Patient has diabetic eye disease No Viera, Tatum, NAT INSTRUCTOR Patient has diabetic eye disease Care Plan Patient has diabetic eye disease No Viera, Tatum, NAT INSTRUCTOR Patient has chronic kidney disease Care Plan Patient has chronic kidney disease No Viera, Tatum, NAT INSTRUCTOR Patient has chronic kidney disease Care Plan Patient has chronic kidney disease No Viera, Tatum, NAT INSTRUCTOR Patient has chronic kidney disease Care Plan Patient has chronic kidney disease No Viera, Tatum, NAT INSTRUCTOR Weekly blood pressure task Care Plan Weekly [...] Plan Patient has chronic kidney disease No Rahda Miranda, PharmD Patient has chronic kidney disease Care Plan Patient has chronic kidney disease No Radha Miranda PharmD Weekly blood pressure [...] blood pressure task No Jose Rafael, Dalila, NAT INSTRUCTOR Weekly blood pressure task Care Plan Weekly blood pressure task No Jose RafaelSabinaDalila, NAT INSTRUCTOR Weekly blood pressure task Care Plan Weekly blood pressure task No Jose RafaelSabinaDalila, NAT INSTRUCTOR Patient has diabetic eye disease Care Plan Patient has diabetic eye disease No Jose Rafael Dalila, NAT INSTRUCTOR Patient has diabetic eye disease Care Plan Patient has diabetic eye disease No Jose RafaelSabinaDalila, NAT INSTRUCTOR Patient has diabetic eye disease Care Plan Patient has diabetic eye disease No Jose RafaelSabinaDalila, NAT INSTRUCTOR Patient has chronic kidney disease Care Plan Patient has chronic kidney disease No Jose Rafael Dalila, NAT INSTRUCTOR Patient has chronic kidney disease Care Plan Patient has chronic kidney disease No Jose RafaelSabinaDalila, NAT INSTRUCTOR Patient has chronic kidney disease Care Plan Patient has chronic kidney disease No Jose RafaelDalila, NAT INSTRUCTOR Weekly blood pressure task Care Plan Weekly [...] Care Plan Weekly blood pressure task No Dlaila Carson RN Weekly blood pressure task Care [...] Care Plan Weekly blood pressure task No Izzy Pearsonla Weekly blood pressure task Care Plan Weekly blood pressure task No Colon Wai Geovanna Weekly blood pressure task Care Plan Weekly blood pressure task No Colon Wai Geovanna Patient has diabetic eye disease Care Plan Patient has diabetic eye disease No Colon Wai, Geovanna Patient has diabetic eye disease Care Plan Patient has diabetic eye disease No Colon Wai Geovanna Patient has diabetic eye disease Care Plan Patient has diabetic eye disease No Parviz Carreno Geovanna Patient has chronic kidney disease Care Plan Patient has chronic kidney disease No Colon Wai Geovanna Patient has chronic kidney disease Care Plan Patient has chronic kidney disease No Colon Wai Geovanna Patient has chronic kidney disease Care Plan Patient has chronic kidney disease No Izzy Pearsonla Weekly blood pressure task Care Plan Weekly [...] Weekly blood pressure task No Dalila Mantilla NAT INSTRUCTOR Weekly blood pressure task Care Plan Weekly blood pressure task No Jose RafaelDalila atkins, NAT INSTRUCTOR Patient has diabetic eye disease Care Plan Patient has diabetic eye disease No Jose RafaelDalila atkins, NAT INSTRUCTOR Patient has diabetic eye disease Care Plan Patient has diabetic eye disease No Jose RafaelDalila atkins NAT INSTRUCTOR Patient has diabetic eye disease Care Plan Patient has diabetic eye disease No Jose RafaelDalila atkins, NAT INSTRUCTOR Patient has chronic kidney disease Care Plan Patient has chronic kidney disease No Jose RafaelDalila atkins, NAT INSTRUCTOR Patient has chronic kidney disease Care Plan Patient has chronic kidney disease No Jose RafaelDalila atkins NAT INSTRUCTOR Patient has chronic kidney disease Care Plan Patient has chronic kidney disease No Jose Rafael, Dalila, NAT INSTRUCTOR Weekly blood pressure task Care Plan Weekly blood pressure task No Jose Rafael, Dalila, NAT INSTRUCTOR Weekly blood pressure task Care Plan Weekly blood pressure task No Jose RafaelSabinaDalila, NAT INSTRUCTOR Weekly blood pressure task Care Plan Weekly blood pressure task No Jose Rafael, Dalila, NAT INSTRUCTOR Patient has diabetic eye disease Care Plan Patient has diabetic eye disease No Jose Rafael, Dalila, NAT INSTRUCTOR Patient has diabetic eye disease Care Plan Patient has diabetic eye disease No Jose Rafael Dalila, NAT INSTRUCTOR Patient has diabetic eye disease Care Plan Patient has diabetic eye disease No Jose Rafael, Dalila, NAT INSTRUCTOR Patient has chronic kidney disease Care Plan Patient has chronic kidney disease No Jose Rafael, Dalila, NAT INSTRUCTOR Patient has chronic kidney disease Care Plan Patient has chronic kidney disease No Jose Rafael, Dalila, NAT INSTRUCTOR Patient has chronic kidney disease Care Plan Patient has chronic kidney disease No Jose Rafael, Dalila, NAT INSTRUCTOR Weekly blood pressure task Care Plan Weekly blood pressure task No Markus Tracyha Weekly blood pressure task Care Plan Weekly blood pressure task No Radha Tracy Weekly blood pressure task Care Plan Weekly blood pressure task No TracySalvadorysha Patient has diabetic eye disease Care Plan Patient has diabetic eye disease No Tracy Jaysha Patient has diabetic eye disease Care Plan Patient has diabetic eye disease No TracySalvadorysha Patient has diabetic eye disease Care Plan Patient has diabetic eye disease No TracySalvadorysha Patient has chronic kidney disease Care Plan Patient has chronic kidney disease No TracySalvadorysha Patient has chronic kidney disease Care Plan Patient has chronic kidney disease No Salvador Tracyysha Patient has chronic kidney disease Care Plan [...] has chronic kidney disease No FatimaMadhavril, PharmD Weekly blood pressure task [...] chronic kidney disease No Radha Miranda PharmD Weekly blood pressure [...] Plan Patient has diabetic eye disease No kEta Reynolds Patient has diabetic eye disease Care [...] chronic kidney disease No Dalila Carson RN Procedures Procedure Name Priority Date/Time Associated Diagnosis Comments POCT GLYCATED HEMOGLOBIN, TOTAL Routine 03/17/2025 1:19 PM EST Type 2 diabetes mellitus with hyperglycemia, with long-term current use of insulin (HCC) XR FOOT 3+ VIEWS RIGHT Routine 03/06/2025 2:15 AM EST XR CALCANEUS 2 VIEWS RIGHT Routine 03/06/2025 2:09 AM EST C-REACTIVE PROTEIN Routine 03/05/2025 10 :32 PM EST SED RATE BY MODIFIED WESTERGREN Routine 03/05/2025 10:32 PM EST COMPREHENSIVE METABOLIC PANEL Routine 03/05/2025 10:32 PM EST CBC WITH AUTO DIFFERENTIAL Routine 03/05/2025 10:32 PM EST LIPID PANEL, STANDARD Routine 07/24/2024 10:41 AM [...] to Health Maintenance Results * (ABNORMAL) POCT Hgb A1c (03/17/2025 1:19 PM EST) Hemoglobin A1C 10.9(A) 4.0 - 5.7 % Blood 03/17/2025 1:19 PM EST Radha Jamison DO POINT OF CARE TEST ENTER/BHARGAVI T ORDERABLES Final Result * XR Foot 3+ Views Right (03/06/2025 2:15 AM EST) Anatomical Region Laterality Modality Lower Extremities, Foot Right Radiogra phic Imaging 03/06/2025 2:15 AM EST Narrative 03/06/2025 2:16 AM EST [address] [address] XRay Report Signed Patient: Rocío Hallman MR#: [id number] 087 : 1960 Acct:[id number] Age/Sex: 64 / F ADM Date: 03/05/25 Loc: HO.ED Attending Dr: Ordering Physician: Noe Younger MD Date of Service: 03/06/25 Procedure(s): XR foot RT min 3V Accession Number(s): [id number] cc: [facility]; Noe Younger MD Reason for Exam: pinkie [...] in OV> 03/06/25215 DD/ 4 TD/TT: 03/06/25214 Shade Cl[employer] Finisher: Procedure Note Donotuseinterpreter, Image - 03/06/[address] [address] XRay Report Signed Patient: Rocío HallmanMR#: [id number] : 1960cct:[id number] Age/Sex: 64 / FADM Date: 03/05/25 Loc: HO.ED Attending Dr: Ordering Physician: Noe Younger MD Date of Service: 03/06/25 Procedure(s): XR foot RT min 3V Accession Number(s): [id number] cc: [facility]; Noe Younger MD Reason for Exam: pinkie [...] in OV> 03/06/25215 DD/ 4 TD/TT: 03/06/25214 [employer]isher: [facility] External Provider IMG XR PROCEDURES Edited Result - Final * XR Calcaneus 2 Views Right (03/06/2025 2:09 AM EST) Anatomical Region Laterality Modality Lower Extremities, Calcaneus Right Rad iographic Imaging 03/06/2025 2:09 AM EST Narrative 03/06/2025 2:10 AM EST [place] [address] XRay Report Signed Patient: Rocío Hallman MR#: [id number] : 1960 Acct:[id number] Age/Sex: 64 / F ADM Date: 03/05/25 Loc: HO.ED Attending Dr: Ordering Physician: Noe Younger MD Date of Service: 03/06/25 Procedure(s): XR calcaneus RT min 2V Accession Number(s): [id number] cc: [facility]; Noe Younger MD Reason for Exam: pain [...] in OV> 03/06/25209 DD/ 8 TD/TT: 03/06/25208 [employer] Finisher: Procedure Note Donotuseinterpreter, Image - 03/06/[address] [address] XRay Report Signed Patient: Rocío HallmanMR#: [id number] : 2Acct:[id number] Age/Sex: 64 / FADM Date: 03/05/25 Loc: HO.ED Attending Dr: Ordering Physician: oNe Younger MD Date of Service: 03/06/25 Procedure(s): XR calcaneus RT min 2V Accession Number(s): [id number] cc: [facility]; Noe Younger MD Reason for Exam: pain [...] in OV> 03/06/25209 DD/ 8 TD/TT: 03/06/25208 [employer]: [facility] External Provider IMG XR PROCEDURES Edited Result - Final * (ABNORMAL) CBC auto differential (03/05/2025 10:32 PM EST) White Blood Count 6.9 4.8 - 10.8 X10*3/uL [facility] Red Blood Count 4.09(L) 4.20 - 5.50 X10*6/uL [facility] Hemoglobin 11.7(L) 12.0 - 16.0 g/dl [facility] Hematocrit 35.6(L) 37.0 - 47.0 % [facility] Mean Corpuscular Volume 87.0 80.0 - 98.0 fL [facility] Mean Corpuscular Hemoglobin 28.6 27.0 - 33.0 pg [facility] Mean Corpuscular HGB Conc 32.9 31.0 - 35.0 g/dl [facility] Red Cell Distribution Width 14.5 11.0 - 16.0 % [facility] Platelet Count 285 160 - 400 X10*3/uL [facility] Mean Platelet Volume 9.0(L) 9.4 - 12.3 fL [facility] Neutrophils Percent Auto 57.7 45 - 73 % [facility] Imm Gran Pct Auto 0.1 0.0 - 0.4 % [facility] Lymphocytes Percent Auto 31.2 20 - 40 % [facility] Monocytes Percent Auto 6.1 2 - 11 % [facility] Eosinophils Percent Auto 4.2(H) 0 - 4 % [facility] Basophils Percent Auto 0.7 0 - 2 % [facility] NRBC Pct Auto 0.0 0.0 - 0.2 /100WBC [facility] Neutrophils Absolute Auto 4.0 2.0 - 8.3 x10*3/uL [facility] Imm Gran Abs Auto 0.01 0.00 - 0.03 X10*3/uL [facility] Lymphocytes Absolute Auto 2.2 1.2 - 4.9 X10*3/uL [facility] Monocytes Absolute Auto 0.4 0.1 - 1.2 X10*3/uL [facility] Eosinophils Absolute Auto 0.3 0.0 - 0.4 X10*3/uL [facility] Basophils Absolute Auto 0.1 0.0 - 0.2 X10*3/uL [facility] NRBC Abs Auto 0.000 0.0 - 0.012 X10*3/uL [facility] 03/05/2025 10:3 2 PM EST 03/05/2025 10:35 PM EST us Generic External Data Provider LAB BLOOD ORDERAB LES Final Result Performing Organization Address [facility] Co de Phone Number [facility] [address] [place] [phone] * (ABNORMAL) Sed Rate by Modified hE (03/05/2025 10:32 PM EST) Erythrocyte Sedimentation Rate 42(H) 1 - 30 MM/HR [facility] Comment:Patients with polycy themia and many hemoglobin abnormalitiesmay have depressed sed rates whereas patients with anemiamay have elevated sed rates. 03/05/2025 10:3 2 PM EST 03/06/2025 1:22 AM EST us Generic External Data Provider LAB BLOOD ORDERAB LES Final Result Performing Organization Address [facility] Co de Phone Number [facility] [address] [place] [phone] * C-reactive Protein (03/05/2025 10:32 PM EST) C Reactive Protein 0.10 < or = 0.50 mg/dL [facility] 03/05/2025 10:3 2 PM EST 03/05/2025 10:35 PM EST us Generic External Data Provider LAB BLOOD ORDERAB LES Final Result Performing Organization Address [facility]/ZIP Co de Phone Number [facility] [address] [place] [phone] * (ABNORMAL) Comprehensive Metabolic Panel (03/05/2025 10:32 PM EST) Sodium 139 135 - 145 mmol/L [facility] Potassium 4.0 3.3 - 5.1 mmol/L [facility] Chloride 104 96 - 108 mmol/L [facility] Carbon Dioxide 28 22 - 29 mmol/L [facility] Anion Gap 11(L) 12 - 20 [facility] Urea Nitrogen (BUN) 23(H) 9 - 16 mg/dL [facility] Creatinine, Serum 1.13 0.5 - 1.4 mg/dL [facility] Creatinine Clr Calc Pharmacy 42.3 [facility] Comment:Provided height and weight: 152.4 cm,63.503 kg.eGFR (calculated from the MDRD study equation) and eCrCl(calculated from the Cockcroft-Gault equation) are based ondifferent parameters and may not yield comparable results.If eCrCl result is absurd, please check patient'sheight/weight. Estimated Glomerular Filt Rate 49 [facility] Comment:Chronic Kidney Disea se: Estimated GFR < 60 mL/min/1.21n0Lktdva Kidney Disease: Estimated GFR < 15 mL/min/1.73m2 Glucose 279(H) 60 - 115 mg/dL [facility] Calcium 9.0 8.4 - 10.2 mg/dL [facility] Bilirubin, Total 0.3 0.0 - 1.0 mg/dL [facility] Aspartate Amino Transferase 16 5 - 31 U/L [facility] Alanine Aminotransferase 8 0 - 31 U/L [facility] Total Protein 6.2(L) 6.5 - 8.0 g/dL [facility] Albumin Level 3.5 3.5 - 5.0 g/dL [facility] Alkaline Phosphatase 97 39 - 117 U/L [facility] 03/05/2025 10:3 2 PM EST 03/05/2025 10:35 PM EST us Generic External Data Provider LAB BLOOD ORDERAB LES Final Result Performing Organization Address [facility]/ZIP Co de Phone Number [facility] [address] [place] [phone] [phone] * (ABNORMAL) Lipid Panel, Standard (07/24/2024 10:41 AM EDT) Triglycerides 157(H) <150 mg/dL [facility] Comment:Desirable Triglyceri de: less than 150 mg/dLBorderline High Triglyceride 150-199 mg/dLHigh Triglyceride: 200-499 mg/dLVery High Triglyceride: greater than or equal to 5OO mg/dL Cholesterol 234(H) <200 mg/dL [facility] Comment:Desirable Cholestero l: less than 200 mg/dLBorderline High Cholesterol: 200-239 mg/dLHigh Cholesterol: greater than 239 mg/dL LDL Cholesterol Calculated 159(H) <100 mg/dL [facility] Comment:Desirable LDL: less than 100 mg/dLNear Optimal/Above Optimal LDL: 110- 129 mg/dLBorderline High LDL: 130-159 mg/dLHigh LDL: 160-189 mg/dLVery High LDL: greater than or equal to 190 mg/dL HDL Cholesterol 44 >40 mg/dL [facility] Comment:Desirable HDL: great er than 40 mg/dL Note: This HDL assay may give artificially low results in patients with liver disease. 07/24/2024 10:4 1 AM EDT 07/24/2024 10:41 AM EDT us Radha Jamison DO LAB BLOOD ORDERABLES Final R esult Performing Organization Address City/[facility]/ZIP Co de Phone Number [facility] [address] [place] [address] [phone] * (ABNORMAL) Albumin, Random Urine W/Creatinine (05/15/2023 8:20 AM EDT) Creatinine, Urine 105.69 mg/dL [facility] Microalbumin Urine 1,418.0 mg/L [facility] Microalbum Creatinine Ratio Ur 1,341.6(H ) <30 ug/mg cr [facility] Comment:Albumin/Creatinine R atio Reference Ranges: Normal: < 30 ug/mg creatinine Microalbuminuria: 30 - 300 ug/mg creatinineClinical Albuminuria: > 300 ug/mg creatinine Urine (Urine, Random) 05/15/2023 8:20 AM EDT 05/15/2023 8:31 AM EDT Radha Shaheen LAB URINE ORDERABLES Final R esult Performing Organization Address City/[facility] Co de Phone Number [facility] [address] [place] [address] [phone] * Hepatitis C Antibody with Reflex to HCV RNA,PCR w/Reflex to Genotype, LiPA (08/08/2022 10:44 AM EDT) Pathologist [facility] [place] [facility] Hepatitis C Antibody NON-REACT ROMERO NON-REACT ROMERO [employer] [place] [employer] Comment: HCV antibody was non-reactive. There is no laboratory evidence of HCV infection. In most cases, no further action is required. However, if recent HCV exposure is suspected, a test for HCV RNA (test code 19561) is suggested. For additional information, please refer to http://education.Supernova/faq/DCT548 (This link is being provided for informational/ educational purposes only.) 08/08/2022 10:4 4 AM EDT 08/08/2022 10:45 AM EDT Narrative [facility] - 08/09/2022 7:27 PM EDT FASTING:YES COLLECTION KIT GIVEN TO PATIENT. PATIENT ADVISED TO RETURN. FASTING: YES Radha Shaheen DO LAB BLOOD ORDERABLES Final R esult Performing Organization Address City/[facility]/ZIP Co de Phone Number [facility] [address], [place] [phone] [employer] [place] [employer] [address] [place] [phone] * HIV-1/2 Antigen and Antibodies, Fourth Generation, with Reflexes (08/08/2022 10:44 AM EDT) HIV Antigen/Antibody, 4th Generation NON-REAC TIVE NON-REAC TIVE [facility] [place] [facility] Comment: HIV-1 antigen and HIV-1/HIV-2 [...] purpose. For additional information please refer to http://education.Axela/faq/SDF868 (This link is being provided for informational/ [...] BLOOD ORDERABLES Final R esult [facility] [address], [place] [address] [facility] [address] [place] [address] * Mammography Report 1 (10/06/2021 1:35 PM [...] 03/20/2025 Patient has chronic kidney disease 03/20/2025 Insurance * Guarantor: Rocío Hallman Account Type Relation to Patient Date of Phone Billing Address Personal/Family Self [address] [place] [address] [facility] C[facility] MEDICAID STAND ADULT * Guarantor: Rocío Hallman Account Type Relation to Patient Date of Phone Billing Address Personal/Family Self [address] [place] [address] Care Teams Curing Oven Attendant Relationship Specialty Start Date End Date Radha Jamison DO [address] [place], [place] [phone] PCP - General Family Medicine 01/26/12 Nelia Sullivan PharmD [address] [place] [address] Pharmacist Internal Medicine 08/31/23 Dalila Carson, JOANN [address] [place] [address] Registered Nurse Family Medicine 12/31/24 Ekta Reynolds 12/31/24 Laurel Monterroso Candle WrapperGuide Tour 02/20/25 Saige Aguilar 09/26/23
--- OUTSIDE RECORDS SUMMARY | 2025-03-25 12:36 | XMS_ITS | Encounter Summary ---
Author Organization [employer] Address [address] [facility] 7t [place] [address] Care Team Providers Care Solar Energy Sales Specialist Name Role Phone Radha Jamison DO Primary Care Provider Abdias Murillo PharmD Unavailable Unavail able Nelia Sullivan PharmD Unavailable Letty Rinaldi Unavailable Dalila Carson RN Unavailable [phone] Ekta Reynolds Unavailable Reason for Visit * Reason Onset Date Comments Med Refill 10/24/2022 Encounter Details Date Type Department Care Team (Late st Contact Info) Description 10/24/2022 Telephone [facility] MEDICINE [address] [place], [place] [phone] Radha Jamison DO [address] [place], [place] [phone] Med Refill Social History Tobacco Use Types [...] Description 04/18/2025 11:00 AM EST Medication Management [facility] MEDICINE [address] [place] [address] Nelia Sullivan PharmD [address] [place] [address] documented as of this encounter Goals Goal [...] documented as of this encounter Care Teams Solar Energy Sales Specialist Relationship Specialty Start Date End Date Radha Jamison DO [address] [place] [address] PCP - General Family Medicine 01/26/12 Abdias Murillo PharmD [address] [place] [address] Pharmacist Internal Medicine 03/21/22 08/30/23 Nelia Sullivan PharmD [address] [place] [address] Pharmacist Internal Medicine 08/31/23 Letty Rinaldi 12/16/24 12/18/24 Dalila Carson, JOANN [address] [place] [phone] Registered Nurse Family Medicine 12/31/24 Ekta Reynolds 12/31/24 Laurel Monterroso Drill Bit SharpenerGas Stove Servicer Helper 02/20/25 Saige Aguilar 09/26/23 documented as of this encounter
--- OUTSIDE RECORDS SUMMARY | 2025-03-25 12:36 | XMS_ITS | Encounter Summary ---
Author Organization [employer] Address [address] [facility] [address] [place] [address] Care Team Providers Care Watershed Manager Name Role Phone Radha Jamison DO Primary Care Provider Abdias Murillo PharmD Unavailable Unavail able Nelia Sullivan PharmD Unavailable [phone] Letty Rinaldi Unavailable Dalila Carson RN Unavailable [phone] Ekta Reynolds Unavailable Reason for Visit * Reason Comments Med Refill Encounter Details Date Type Department Care Team (Late st Contact Info) Description 11/08/2022 Refill [facility] MEDICINE [address] [place], [place] [phone] Radha Jamison DO [address] [place] [address] Social History Tobacco Use Types Packs/Day Years [...] 11:00 AM EST Medication Management [facility] MEDICINE [address] [place] [address] Nelia Sullivan PharmD [address] [place] [address] documented as of this encounter Goals Goal [...] documented as of this encounter Care Teams Watershed Manager Relationship Specialty Start Date End Date Radha Jamison DO [address] [place] [address] PCP - General Family Medicine 01/26/12 Abdias Murillo, PharmD [address] [place] [address] Pharmacist Internal Medicine 03/21/22 08/30/23 Nelia Sullivan PharmD [address] [place] [address] Pharmacist Internal Medicine 08/31/23 Letty Rinaldi 12/16/24 12/18/24 Dalila Carson, RN [address] [place] [address] Registered Nurse Family Medicine 12/31/24 Ekta Reynolds 12/31/24 Laurel Monterroso Can HandlerAquatic Biologist 02/20/25 Saige Aguilar 09/26/23 documented as of this encounter
--- OUTSIDE RECORDS SUMMARY | 2025-03-25 12:36 | XMS_ITS | Encounter Summary ---
Author Organization [employer] Address 75 [facility] 7t [place] [address] Care Team Providers Care Card Assembler Name Role Phone ShaheenRadha Primary Care Provider [phone] Abdias Murillo PharmD Unavailable Unavail able Nelia Sullivan PharmD Unavailable [phone] Letty Rinaldi Unavailable Dalila Carson RN Unavailable [phone] Ekta Reynolds Unavailable Reason for Visit * Reason Onset Date Comments Med Refill Appointment 05/15/2022 Re: her appt for today as [id number] @ 10:15 am. & No active phone # at this time. Encounter Details Date Type Department Care Team (Late st Contact Info) Description 05/15/2022 Refill [facility] MEDICINE [address] [place], [place] [phone] Abdias Murillo, PharmD Type 2 diabetes mellitus with other specified complication, with long-term current use of insulin ([facility]) Social History Tobacco Use Types [...] pt regarding her appt for today as [id number] @ 10:15 am. And her phone # is not active at this time. documented in this encounter Plan of Treatment Upcoming Encounters Date Type Department Care Team (Late st Contact Info) Description 04/18/2025 11:00 AM EST Medication Management [facility] MEDICINE [address] [place] [address] Nelia Sullivan PharmD [address] [place] [address] documented as of this encounter Goals Goal [...] documented as of this encounter Care Teams Card Assembler Relationship Specialty Start Date End Date Radha Jamison DO [address] [place] [address] PCP - General Family Medicine 01/26/12 Abdias Murillo PharmD [address] [place] [address] Pharmacist Internal Medicine 03/21/22 08/30/23 Nelia Sullivan PharmD [address] [place] [address] Pharmacist Internal Medicine 08/31/23 Letty Rinaldi 12/16/24 12/18/24 Dalila Carson, JOANN [address] [place] [address] MARA Chan [address] Registered Nurse Family Medicine 12/31/24 Ekta Reynolds 12/31/24 Laurel Monterroso Emergency Response OfficerLithographer Helper 02/20/25 Saige Aguilar 09/26/23 documented as of this encounter
--- OUTSIDE RECORDS SUMMARY | 2025-03-25 12:36 | XMS_ITS | Encounter Summary ---
Author Organization [employer] Address 75 [facility] 7t [place] [address] Care Team Providers Care Shrinking Machine Operator Name Role Phone Radha Jamison DO Primary Care Provider [phone] Nelia Sullivan PharmD Unavailable [phone] Dalila Carson RN Unavailable [phone] Ekta Reynolds Unavailable Reason for Visit * Reason Onset Date Comments Call Back Request 03/05/2025 Encounter Details Date Type Department Care Team ([facility] st Contact Info) Description 03/05/2025 Telephone [facility] MEDICINE [address] [place], [place] [phone] Radha Jamison DO [address] [place], [place] [phone] Call Back Request Social History Tobacco Use [...] [facility] [address] [place] [address] Nelia Sullivan PharmD [address] [place] [address] documented as of this encounter Goals Goal [...] Weekly blood pressure task No Viera, Tatum, PUBLIC RELATIONS COORDINATOR Weekly blood pressure task Care Plan Weekly blood pressure task No Viera, Tatum, PUBLIC RELATIONS COORDINATOR Patient has diabetic eye disease Care Plan Patient has diabetic eye disease No Viera, Tatum, PUBLIC RELATIONS COORDINATOR Patient has diabetic eye disease Care Plan Patient has diabetic eye disease No Viera, Tatum, PUBLIC RELATIONS COORDINATOR Patient has diabetic eye disease Care Plan Patient has diabetic eye disease No Viera, Tatum, PUBLIC RELATIONS COORDINATOR Patient has chronic kidney disease Care Plan Patient has chronic kidney disease No Viera, Tatum, PUBLIC RELATIONS COORDINATOR Patient has chronic kidney disease Care Plan Patient has chronic kidney disease No Viera, Tatum, PUBLIC RELATIONS COORDINATOR Patient has chronic kidney disease Care Plan Patient has chronic kidney disease No Viera, Tatum, PUBLIC RELATIONS COORDINATOR Weekly blood pressure task Care Plan Weekly [...] has chronic kidney disease No MirandaMarybethRadha, PharmD Weekly blood pressure task [...] Weekly blood pressure task No Dalila Mantilla PUBLIC RELATIONS COORDINATOR Patient has diabetic eye disease Care Plan Patient has diabetic eye disease No Dalila Mantilla PUBLIC RELATIONS COORDINATOR Patient has diabetic eye disease Care Plan Patient has diabetic eye disease No Dalila Mantilla PUBLIC RELATIONS COORDINATOR Patient has diabetic eye disease Care Plan Patient has diabetic eye disease No Dalila Mantilla PUBLIC RELATIONS COORDINATOR Patient has chronic kidney disease Care Plan Patient has chronic kidney disease No Dalila Mantilla PUBLIC RELATIONS COORDINATOR Patient has chronic kidney disease Care Plan Patient has chronic kidney disease No Dalila Mantilla LPN Patient has chronic kidney disease Care Plan Patient has chronic kidney disease No Dalila Mantilla LPN Weekly blood pressure [...] documented as of this encounter Care Teams Shrinking Machine Operator Relationship Specialty Start Date End Date Radha Jamison DO [address] [place] [address] PCP - General Family Medicine 01/26/12 Nelia Sullivan PharmD [address] [place] [address] Pharmacist Internal Medicine 08/31/23 Dalila Carson, JOANN [address] [place] [address] Registered Nurse Family Medicine 12/31/24 Ekta Reynodls 12/31/24 Laurel Monterroso Dairy Manufacturing TechnologistSenior Java Programmer 02/20/25 Saige Aguilar 09/26/23 documented as of this encounter
--- OUTSIDE RECORDS SUMMARY | 2025-03-25 12:36 | XMS_ITS | Encounter Summary ---
Author Organization [employer] Address [address] [facility] 7t [place] [address] Care Team Providers Care Legal Coordinator Name Role Phone Radha Jamison DO Primary Care Provider Nelia Sullivan PharmD Unavailable Letty Rinaldi Unavailable Dalila Carson RN Unavailable [phone] Ekta Reynolds Unavailable Reason for Visit * Reason Comments Med Refill Encounter Details Date Type Department Care Team (Late st Contact Info) Description 11/21/2023 Refill [facility] MEDICINE [address] [place], [place] [phone] Radha Jamison DO [address] [place], [place] [phone] Chronic bilateral low back pain, unspecified whether [...] Description 04/18/2025 11:00 AM EST Medication Management [facility] MEDICINE [address] [place] [address] Nelia Sullivan, PharmD [address] [place] [address] documented as of this encounter Goals Goal Patient Goal Type Associated Problems Recent Progress Patient-Stated? Author Record your blood pressure once per day Blood Pressure No Puia, Nelia, PharmD Blood Pressure < 140/90 Blood Pressure 180/72(2025 11:39 AM EST) No Puia Nelia, PharmD Smoking cessation General No Puia, Nelia, PharmD Patient will adhere to medication regimen General No Puia, Nelia, PharmD Hemoglobin A1c < 7 Result Component 10.9(03/17/19 1:19 PM EST) No Dellogono, Abdias, PharmD Record [...] documented as of this encounter Care Teams Legal Coordinator Relationship Specialty Start Date End Date Radha Jamison DO [address] [place], [place] [phone] PCP - General Family Medicine 01/26/12 Nelia Sullivan PharmD [address] [place] [address] Pharmacist Internal Medicine 08/31/23 Letty Rinaldi 12/16/24 12/18/24 Dalila Carson, JOANN [address] [place] [address] Registered Nurse Family Medicine 12/31/24 Ekta Reynolds 12/31/24 Laurel Monterroso Hadoop Infrastructure ArchitectManager Financial 02/20/25 Saige Aguilar 09/26/23 documented as of this encounter
--- OUTSIDE RECORDS SUMMARY | 2025-03-25 12:36 | XMS_ITS | Encounter Summary ---
Author Organization [employer] Address [address] [facility] [address] [place] [address] Care Team Providers Care Infant Caregiver Name Role Phone Radha Jamison DO Primary Care Provider Abdias Murillo PharmD Unavailable Unavail able Nelia Sullivan PharmD Unavailable Letty Rinaldi Unavailable Dalila Carson RN Unavailable [phone] Ekta Reynolds Unavailable Encounter Details Date Type Department Care Team (Late Contact Info) Description 02/03/2022 Orders Only [facility] [address] [place] [address] [phone] Radha Jamison DO [address] [place] [address] [phone] Social History Tobacco Use Types Packs/Day Years [...] Description 04/18/2025 11:00 AM EST Medication Management [facility] [address] [place] [phone] LaurieNelia, PharmD [address] [place] [address] documented as of this encounter Procedures Procedure [...] Rate 23(H) 0 - 20 MM/HR [facility] Comment:Patients with polycy themia and many hemoglobin abnormalitiesmay have depressed sed rates whereas patients with anemiamay have elevated sed rates. 04/24/2022 4:19 PM EDT 04/24/2022 4:27 PM EDT us [facility] External Provider LAB BLO OD ORDERABLES Final Result [facility] [address] [place] [address] [phone] * C-reactive Protein (04/24/2022 4:19 PM EDT) Pathologist [facility] [place] C Reactive Protein 0.28 < or = 0.50 mg/dL [facility] 04/24/2022 4:19 PM EDT 04/24/2022 4:22 PM EDT [facility] External Provider LAB BLO OD ORDERABLES Final Result Performing Organization Address [facility]/ZIP Co de Phone Number [facility] [address] [place] [phone] * Magnesium (04/24/2022 4:19 PM EDT) [facility] Magnesium 1.7 1.6 - 2.6 mg/dL [facility] 04/24/2022 4:19 PM EDT 04/24/2022 4:22 PM EDT [facility] External Provider LAB BLO OD ORDERABLES Final Result Performing Organization Address City/[facility]/ZIP Co de Phone Number [facility] [address] [place] [address] [phone] * (ABNORMAL) Basic Metabolic Panel (04/24/2022 4:19 PM EDT) [facility] Sodium 135 135 - 145 mmol/L [facility] Potassium 4.7 3.3 - 5.1 mmol/L [facility] Chloride 100 96 - 108 mmol/L [facility] Carbon Dioxide 27 22 - 29 mmol/L [facility] Anion Gap 13 12 - 20 [facility] Urea Nitrogen (BUN) 20(H) 9 - 16 mg/dL [facility] Creatinine, Serum 1.01 0.5 - 1.4 mg/dL [facility] Creatinine Clr Calc Pharmacy 48.8 [facility] Comment:Provided height and weight: 152.4 cm,62.4 kg.eGFR (calculated from the MDRD study equation) and eCrCl(calculated from the Cockcroft-Gault equation) are based ondifferent parameters and may not yield comparable results.If eCrCl result is absurd, please check patient'sheight/weight. Estimated Glomerular Filt Rate 56 [facility] Comment:NOTE: For -Am erican individuals, multiply the result by 1.210.Chronic Kidney Disease: Estimated GFR < 60 mL/min/1.57h6Ejgqwk Kidney Disease: Estimated GFR < 15 mL/min/1.73m2 Glucose 269(H) 60 - 115 mg/dL [facility] Calcium 9.2 8.4 - 10.2 mg/dL [facility] 04/24/2022 4:19 PM EDT 04/24/2022 4:22 PM EDT [facility] External Provider LAB BLO OD ORDERABLES Final Result Performing Organization Address [facility] de Phone Number [facility] [address] [place] [address] [phone] * Hepatic Function Panel (04/24/2022 4:19 PM EDT) Bilirubin, Total 0.6 0.0 - 1.0 mg/dL [facility] Bilirubin, Direct <0.2 0.0 - 0.5 mg/dL [facility] Aspartate Amino Transferase 11 5 - 31 U/L [facility] Alanine Aminotransferase 6 0 - 31 U/L [facility] Total Protein 6.5 6.5 - 8.0 g/dL [facility] Albumin Level 4.0 3.5 - 5.0 g/dL [facility] Alkaline Phosphatase 80 39 - 117 U/L [facility] 04/24/2022 4:19 PM EDT 04/24/2022 4:22 PM EDT [facility] External Provider LAB BLO OD ORDERABLES Final Result Performing Organization Address [facility] de Phone Number [facility] [address] [place] [phone] * (ABNORMAL) CBC auto differential (04/24/2022 4:19 PM EDT) White Blood Count 7.3 4.8 - 10.8 X10*3/uL [facility] Red Blood Count 4.14(L) 4.20 - 5.50 X10*6/uL [facility] Hemoglobin 12.1 12.0 - 16.0 g/dl [facility] Hematocrit 36.6(L) 37.0 - 47.0 % [facility] Mean Corpuscular Volume 88.4 80.0 - 98.0 fL [facility] Mean Corpuscular Hemoglobin 29.2 27.0 - 33.0 pg [facility] Mean Corpuscular HGB Conc 33.1 31.0 - 35.0 g/dl [facility] Red Cell Distribution Width 13.4 11.0 - 16.0 % [facility] Platelet Count 333 160 - 400 X10*3/uL [facility] Mean Platelet Volume 8.9(L) 9.4 - 12.3 fL [facility] Neutrophils Percent Auto 62.4 45 - 73 % [facility] Imm Gran Pct Auto 0.3 0.0 - 0.4 % [facility] Lymphocytes Percent Auto 28.8 20 - 40 % [facility] Monocytes Percent Auto 5.3 2 - 11 % [facility] Eosinophils Percent Auto 2.7 0 - 4 % [facility] Basophils Percent Auto 0.5 0 - 2 % [facility] NRBC Pct Auto 0.0 0.0 - 0.2 /100WBC [facility] Neutrophils Absolute Auto 4.6 2.0 - 8.3 x10*3/uL [facility] Imm Gran Abs Auto 0.02 0.00 - 0.03 X10*3/uL [facility] Lymphocytes Absolute Auto 2.1 1.2 - 4.9 X10*3/uL [facility] Monocytes Absolute Auto 0.4 0.1 - 1.2 X10*3/uL [facility] Eosinophils Absolute Auto 0.2 0.0 - 0.4 X10*3/uL [facility] Basophils Absolute Auto 0.0 0.0 - 0.2 X10*3/uL [facility] NRBC Abs Auto 0.000 0.0 - 0.012 X10*3/uL [facility] 04/24/2022 4:19 PM EDT 04/24/2022 4:22 PM EDT us [facility] External Provider LAB BLO OD ORDERABLES Final Result [facility] [address] [place] [phone] * (ABNORMAL) Urinalysis, Complete, with Reflex to Culture (04/17/2022 10:53 AM EST) Color Urine Yellow [facility] Appearance Urine Clear [facility] PH 7.5 5.0 - 9.0 [facility] Glucose Urine UA 100(A) Negative mg/dL [facility] Urine Blood Negative Negative [facility] Specific Portal - Urine >=1.030(H) 1.005 - 1.025 [facility] Urine Protein 100 (2+)(A) Neg-Trace mg/dL [facility] Urine Ketones Negative Negative mg/dL [facility] Nitrite Urine Negative Negative [facility] Leukocyte Esterase Urine Negative Negative [facility] RBC Urine 3-5(A) 0 - 2 /HPF [facility] Urine WBC 0-5 0 - 5 /HPF [facility] Urine Squamous Epithelial Cell 3-5 0 - 2 /HPF [facility] Urine Bacteria None Seen None Seen [facility] Hyaline Casts, Urine 0-2 0 - 2 /LPF [facility] 04/17/2022 10:5 3 AM EST 04/17/2022 10:56 AM EST Narrative [facility] - 04/17/2022 11:06 AM EST Urine, Clean Catch [facility] External Provider LAB URI NE ORDERABLES Final Result Performing Organization Address [facility] Co de Phone Number [facility] [address] [place] [address] [phone] * (ABNORMAL) Sed Rate by Modified Kamaljitergren (04/17/2022 8:21 AM EST) Pathologist [facility] [place] Erythrocyte Sedimentation Rate 23(H) 0 - 20 MM/HR [facility] Comment:Patients with polycy themia and many hemoglobin abnormalitiesmay have depressed sed rates whereas patients with anemiamay have elevated sed rates. 04/17/2022 8:21 AM EST 04/17/2022 8:41 AM EST [facility] External Provider LAB BLO OD ORDERABLES Final Result Performing Organization Address [facility] Co de Phone Number [facility] [address] [place] [address] [phone] * Lipase (04/17/2022 8:21 AM EST) Pathologist [facility] [place] Lipase 10 8 - 78 U/L [facility] 04/17/2022 8:21 AM EST 04/17/2022 8:24 AM EST [facility] External Provider LAB BLO OD ORDERABLES Final Result Performing Organization Address [facility] de Phone Number [facility] [address] [place] [address] [phone] * C-reactive Protein (04/17/2022 8:21 AM EST) Pathologist [facility] [place] C Reactive Protein 0.23 < or = 0.50 mg/dL [facility] 04/17/2022 8:21 AM EST 04/17/2022 8:24 AM EST [facility] External Provider LAB BLO OD ORDERABLES Final Result Performing Organization Address [facility] Co de Phone Number [facility] [address] [place] [address] [phone] * Magnesium (04/17/2022 8:21 AM EST) [facility] Magnesium 1.6 1.6 - 2.6 mg/dL [facility] 04/17/2022 8:21 AM EST 04/17/2022 8:24 AM EST [facility] External Provider LAB BLO OD ORDERABLES Final Result Performing Organization Address [facility] Number [facility] [address] [place] [address] [phone] * (ABNORMAL) Hepatic Function Panel (04/17/2022 8:21 AM EST) [facility] Bilirubin, Total 0.7 0.0 - 1.0 mg/dL [facility] Bilirubin, Direct <0.2 0.0 - 0.5 mg/dL [facility] Aspartate Amino Transferase 10 5 - 31 U/L [facility] Alanine Aminotransferase 7 0 - 31 U/L [facility] Total Protein 6.2(L) 6.5 - 8.0 g/dL [facility] Albumin Level 3.8 3.5 - 5.0 g/dL [facility] Alkaline Phosphatase 71 39 - 117 U/L [facility] 04/17/2022 8:21 AM EST 04/17/2022 8:24 AM EST [facility] External Provider LAB BLO OD ORDERABLES Final Result Performing Organization Address [facility] Co ks Phone Number [facility] [address] [place] [address] [phone] * (ABNORMAL) Basic Metabolic Panel (04/17/2022 8:21 AM EST) [facility] [place] Sodium 138 135 - 145 mmol/L [facility] Potassium 4.9 3.3 - 5.1 mmol/L [facility] Chloride 104 96 - 108 mmol/L [facility] Carbon Dioxide 26 22 - 29 mmol/L [facility] Anion Gap 13 12 - 20 [facility] Urea Nitrogen (BUN) 17(H) 9 - 16 mg/dL [facility] Creatinine, Serum 0.79 0.5 - 1.4 mg/dL [facility] Creatinine Clr Calc Pharmacy 66.3 [facility] Comment:Provided height and weight: 157.48 cm,63.503 kg.eGFR (calculated from the MDRD study equation) and eCrCl(calculated from the Cockcroft-Gault equation) are based ondifferent parameters and may not yield comparable results.If eCrCl result is absurd, please check patient'sheight/weight. Estimated Glomerular Filt Rate >60 [facility] Comment:NOTE: For -Am erican individuals, multiply the result by 1.210.Chronic Kidney Disease: Estimated GFR < 60 mL/min/1.05a7Ybfsck Kidney Disease: Estimated GFR < 15 mL/min/1.73m2 Glucose 272(H) 60 - 115 mg/dL [facility] Calcium 9.1 8.4 - 10.2 mg/dL [facility] 04/17/2022 8:21 AM EST 04/17/2022 8:24 AM EST us [facility] External Provider LAB BLO OD ORDERABLES Final Result [facility] [address] [place] [address] [phone] * (ABNORMAL) CBC auto differential (04/17/2022 8:21 AM EST) Pathologist [facility] [place] White Blood Count 5.7 4.8 - 10.8 X10*3/uL [facility] Red Blood Count 4.01(L) 4.20 - 5.50 X10*6/uL [facility] Hemoglobin 11.7(L) 12.0 - 16.0 g/dl [facility] Hematocrit 35.9(L) 37.0 - 47.0 % [facility] Mean Corpuscular Volume 89.5 80.0 - 98.0 fL [facility] Mean Corpuscular Hemoglobin 29.2 27.0 - 33.0 pg [facility] Mean Corpuscular HGB Conc 32.6 31.0 - 35.0 g/dl [facility] Red Cell Distribution Width 13.4 11.0 - 16.0 % [facility] Platelet Count 309 160 - 400 X10*3/uL [facility] Mean Platelet Volume 9.3(L) 9.4 - 12.3 fL [facility] Neutrophils Percent Auto 60.9 45 - 73 % [facility] Imm Gran Pct Auto 0.4 0.0 - 0.4 % [facility] Lymphocytes Percent Auto 27.3 20 - 40 % [facility] Monocytes Percent Auto 6.3 2 - 11 % [facility] Eosinophils Percent Auto 4.4(H) 0 - 4 % [facility] Basophils Percent Auto 0.7 0 - 2 % [facility] NRBC Pct Auto 0.0 0.0 - 0.2 /100WBC [facility] Neutrophils Absolute Auto 3.5 2.0 - 8.3 x10*3/uL [facility] Imm Gran Abs Auto 0.02 0.00 - 0.03 X10*3/uL [facility] Lymphocytes Absolute Auto 1.6 1.2 - 4.9 X10*3/uL [facility] Monocytes Absolute Auto 0.4 0.1 - 1.2 X10*3/uL [facility] Eosinophils Absolute Auto 0.3 0.0 - 0.4 X10*3/uL [facility] Basophils Absolute Auto 0.0 0.0 - 0.2 X10*3/uL [facility] NRBC Abs Auto 0.000 0.0 - 0.012 X10*3/uL [facility] 04/17/2022 8:21 AM EST 04/17/2022 8:24 AM EST [facility] External Provider LAB BLO OD ORDERABLES Final Result Performing Organization Address [facility] Co de Phone Number [facility] [address] [place] [address] [phone] * Creatinine, Serum (04/13/2022 7:33 AM EST) Creatinine, Serum 0.75 0.5 - 1.4 mg/dL [facility] Creatinine Clr Calc Pharmacy 70.3 [facility] Comment:Provided height and weight: 157.48 cm,64.41 kg.eGFR (calculated from the MDRD study equation) and eCrCl(calculated from the Cockcroft-Gault equation) are based ondifferent parameters and may not yield comparable results.If eCrCl result is absurd, please check patient'sheight/weight. Estimated Glomerular Filt Rate >60 [facility] Comment:NOTE: For -Am erican individuals, multiply the result by 1.210.Chronic Kidney Disease: Estimated GFR < 60 mL/min/1.37n3Yogqvh Kidney Disease: Estimated GFR < 15 mL/min/1.73m2 04/13/2022 7:33 AM EST 04/13/2022 7:38 AM EST [facility] External Provider LAB BLO OD ORDERABLES Final Result Performing Organization Address [facility] Co de Phone Number [facility] [address] [place] [address] [phone] * BUN (Blood Urea Nitrogen) (04/13/2022 7:33 AM EST) Urea Nitrogen (BUN) 12 9 - 16 mg/dL [facility] 04/13/2022 7:33 AM EST 04/13/2022 7:38 AM EST [facility] External Provider LAB BLO OD ORDERABLES Final Result [facility] [address], [place] [phone] * (ABNORMAL) CBC auto differential (04/13/2022 7:33 AM EST) White Blood Count 6.6 4.8 - 10.8 X10*3/uL [facility] Red Blood Count 4.12(L) 4.20 - 5.50 X10*6/uL [facility] Hemoglobin 12.1 12.0 - 16.0 g/dl [facility] Hematocrit 36.6(L) 37.0 - 47.0 % [facility] Mean Corpuscular Volume 88.8 80.0 - 98.0 fL [facility] Mean Corpuscular Hemoglobin 29.4 27.0 - 33.0 pg [facility] Mean Corpuscular HGB Conc 33.1 31.0 - 35.0 g/dl [facility] Red Cell Distribution Width 13.6 11.0 - 16.0 % [facility] Platelet Count 291 160 - 400 X10*3/uL [facility] Mean Platelet Volume 9.0(L) 9.4 - 12.3 fL [facility] Neutrophils Percent Auto 55.5 45 - 73 % [facility] Imm Gran Pct Auto 0.2 0.0 - 0.4 % [facility] Lymphocytes Percent Auto 33.7 20 - 40 % [facility] Monocytes Percent Auto 6.5 2 - 11 % [facility] Eosinophils Percent Auto 3.6 0 - 4 % [facility] Basophils Percent Auto 0.5 0 - 2 % [facility] NRBC Pct Auto 0.0 0.0 - 0.2 /100WBC [facility] Neutrophils Absolute Auto 3.7 2.0 - 8.3 x10*3/uL [facility] Imm Gran Abs Auto 0.01 0.00 - 0.03 X10*3/uL [facility] Lymphocytes Absolute Auto 2.2 1.2 - 4.9 X10*3/uL [facility] Monocytes Absolute Auto 0.4 0.1 - 1.2 X10*3/uL [facility] Eosinophils Absolute Auto 0.2 0.0 - 0.4 X10*3/uL [facility] Basophils Absolute Auto 0.0 0.0 - 0.2 X10*3/uL [facility] NRBC Abs Auto 0.000 0.0 - 0.012 X10*3/uL [facility] 04/13/2022 7:33 AM EST 04/13/2022 7:38 AM EST [facility] External Provider LAB BLO OD ORDERABLES Final Result Performing Organization Address City/[facility]/ZIP Co de Phone Number [facility] [address] [place] [address] [phone] * (ABNORMAL) GLUCOSE, WHOLE BLOOD (04/13/2022 7:27 AM EST) Glucose, Whole Blood 197(H) 60 - 115 mg/dL [facility] Comment:METER #: [id number] 04/13/2022 7:27 AM EST 04/13/2022 7:31 AM EST [facility] External Provider LAB BLO OD ORDERABLES Final Result Performing Organization Address [facility]/ZIP Co de Phone Number [facility] [address] [place] [address] [phone] * HIGH SENSITIVITY TROPONIN I (04/03/2022 8:36 PM EST) TROPONIN I HIGH SENSITIVITY 6.0 <3.5 - 17.0 ng/L [facility] Comment:The Ibrahim high sens itivity Troponin-I results should beused in conjunction with other diagnostic information suchas ECG, clinical observations and information, and patientsymptoms to aid in the diagnosis of VA. 04/03/2022 8:36 PM EST 04/03/2022 8:38 PM EST [facility] External Provider LAB BLO OD ORDERABLES Final Result Performing Organization Address [facility]/ZIP Co de Phone Number [facility] [address] [place] [phone] * Lipase (04/03/2022 8:36 PM EST) Lipase 10 8 - 78 U/L [facility] 04/03/2022 8:36 PM EST 04/03/2022 8:38 PM EST [facility] External Provider LAB BLO OD ORDERABLES Final Result Performing Organization Address [facility] Co de Phone Number [facility] [address] [place] [phone] * (ABNORMAL) Basic Metabolic Panel (04/03/2022 8:36 PM EST) Sodium 138 135 - 145 mmol/L [facility] Potassium 3.9 3.3 - 5.1 mmol/L [facility] Chloride 104 96 - 108 mmol/L [facility] Carbon Dioxide 27 22 - 29 mmol/L [facility] Anion Gap 11(L) 12 - 20 [facility] Urea Nitrogen (BUN) 11 9 - 16 mg/dL [facility] Creatinine, Serum 0.74 0.5 - 1.4 mg/dL [facility] Creatinine Clr Calc Pharmacy 70.7 [facility] Comment:Provided height and weight: 157.48 cm,63.503 kg.eGFR (calculated from the MDRD study equation) and eCrCl(calculated from the Cockcroft-Gault equation) are based ondifferent parameters and may not yield comparable results.If eCrCl result is absurd, please check patient'sheight/weight. Estimated Glomerular Filt Rate >60 [facility] Comment:NOTE: For -Am erican individuals, multiply the result by 1.210.Chronic Kidney Disease: Estimated GFR < 60 mL/min/1.30q5Rbnimx Kidney Disease: Estimated GFR < 15 mL/min/1.73m2 Glucose 246(H) 60 - 115 mg/dL [facility] Calcium 9.0 8.4 - 10.2 mg/dL [facility] 04/03/2022 8:36 PM EST 04/03/2022 8:38 PM EST [facility] External Provider LAB BLO OD ORDERABLES Final Result Performing Organization Address [facility] Co de Phone Number [facility] [address] [place] [address] [phone] * (ABNORMAL) Hepatic Function Panel (04/03/2022 8:36 PM EST) Bilirubin, Total 0.6 0.0 - 1.0 mg/dL [facility] Bilirubin, Direct 0.2 0.0 - 0.5 mg/dL [facility] Aspartate Amino Transferase 10 5 - 31 U/L [facility] Alanine Aminotransferase 8 0 - 31 U/L [facility] Total Protein 5.8(L) 6.5 - 8.0 g/dL [facility] Albumin Level 3.7 3.5 - 5.0 g/dL [facility] Alkaline Phosphatase 76 39 - 117 U/L [facility] 04/03/2022 8:36 PM EST 04/03/2022 8:38 PM EST [facility] External Provider LAB BLO OD ORDERABLES Final Result Performing Organization Address [facility] Co de Phone Number [facility] [address] [place] [address] [phone] * (ABNORMAL) CBC auto differential (04/03/2022 8:36 PM EST) White Blood Count 6.0 4.8 - 10.8 X10*3/uL [facility] Red Blood Count 4.10(L) 4.20 - 5.50 X10*6/uL [facility] Hemoglobin 12.0 12.0 - 16.0 g/dl [facility] Hematocrit 35.6(L) 37.0 - 47.0 % [facility] Mean Corpuscular Volume 86.8 80.0 - 98.0 fL [facility] Mean Corpuscular Hemoglobin 29.3 27.0 - 33.0 pg [facility] Mean Corpuscular HGB Conc 33.7 31.0 - 35.0 g/dl [facility] Red Cell Distribution Width 13.3 11.0 - 16.0 % [facility] Platelet Count 276 160 - 400 X10*3/uL [facility] Mean Platelet Volume 9.2(L) 9.4 - 12.3 fL [facility] Neutrophils Percent Auto 58.2 45 - 73 % [facility] Imm Gran Pct Auto 0.2 0.0 - 0.4 % [facility] Lymphocytes Percent Auto 32.9 20 - 40 % [facility] Monocytes Percent Auto 6.0 2 - 11 % [facility] Eosinophils Percent Auto 2.2 0 - 4 % [facility] Basophils Percent Auto 0.5 0 - 2 % [facility] NRBC Pct Auto 0.0 0.0 - 0.2 /100WBC [facility] Neutrophils Absolute Auto 3.5 2.0 - 8.3 x10*3/uL [facility] Imm Gran Abs Auto 0.01 0.00 - 0.03 X10*3/uL [facility] Lymphocytes Absolute Auto 2.0 1.2 - 4.9 X10*3/uL [facility] [facility] Monocytes Absolute Auto 0.4 0.1 - 1.2 X10*3/uL [facility] Eosinophils Absolute Auto 0.1 0.0 - 0.4 X10*3/uL [facility] Basophils Absolute Auto 0.0 0.0 - 0.2 X10*3/uL [facility] NRBC Abs Auto 0.000 0.0 - 0.012 X10*3/uL [facility] 04/03/2022 8:36 PM EST 04/03/2022 8:38 PM EST [facility] External Provider LAB BLO OD ORDERABLES Final Result Performing Organization Address [facility] Co de Phone Number [facility] [address] [place] [address] [phone] * (ABNORMAL) GLUCOSE, WHOLE BLOOD (04/03/2022 7:56 PM EST) Pathologist [facility] [place] Glucose, Whole Blood 227(H) 60 - 115 mg/dL [facility] Comment:METER #: [id number] 04/03/2022 7:56 PM EST 04/03/2022 8:01 PM EST [facility] External Provider LAB BLO OD ORDERABLES Final Result Performing Organization Address [facility] Phone Number [facility] [address] [place] [address] [phone] * (ABNORMAL) B Type Natriuretic Peptide (BNP) (03/09/2022 5:39 PM EST) [facility] B Type Natriuretic Peptide 125(H) <100 pg/mL [facility] Comment:For those patients w ho are being treated with Natrecor(nesiritide, recombinant BNP), BNP testing should beperformed at least two hours post treatment in order toensure that only endogenous levels of BNP are detected. 03/09/2022 5:39 PM EST 03/09/2022 6:48 PM EST [facility] External Provider LAB BLO OD ORDERABLES Final Result Performing Organization Address [facility] Co de Phone Number [facility] [address] [place] [address] [phone] * SARS-CoV-2 RNA, Influenza A/B, and RSV RNA, Ql NAAT (03/09/2022 5:39 PM EST) [facility] Influenza A PCR NEGATIVE Negative [facility] Influenza B PCR NEGATIVE Negative [facility] Resp Syncy Virus RNA Qual PCR NEGATIVE Negative [facility] SARS COV2 PCR NEGATIVE Negative [facility] SARS/Flu/RSV Note See Note [facility] Comment:All test results mus t [...] use by authorized laboratories.Testing performed on the [employer] GeneXpert utilizingreal-time RT-PCR.All SARS CoV2 and positive influenza A/B results arereported to [facility]. 03/09/2022 5:39 PM EST 03/09/2022 5:43 PM EST [facility] Exter nal Provider LAB MICROBIOLOGY - GENERAL ORDERABLES Final Result Performing Organization Address City/[facility]/ZIP Co de Phone Number [facility] [address] [place] [address] [phone] * HIGH SENSITIVITY TROPONIN I (03/09/2022 5:39 PM EST) TROPONIN I HIGH SENSITIVITY 5.6 <3.5 - 17.0 ng/L [facility] Comment:The Ibrahim high sens itivity Troponin-I results should beused in conjunction with other diagnostic information suchas ECG, clinical observations and information, and patientsymptoms to aid in the diagnosis of [facility]. 03/09/2022 5:39 PM EST 03/09/2022 5:43 PM EST [facility] External Provider LAB BLO OD ORDERABLES Final Result Performing Organization Address City/[facility]/ZIP Co de Phone Number [facility] [address] [place] [address] [phone] * (ABNORMAL) Comprehensive Metabolic Panel (03/09/2022 5:39 PM EST) Sodium 139 135 - 145 mmol/L [facility] Potassium 3.9 3.3 - 5.1 mmol/L [facility] Chloride 103 96 - 108 mmol/L [facility] Carbon Dioxide 27 22 - 29 mmol/L [facility] Anion Gap 13 12 - 20 [facility] Urea Nitrogen (BUN) 18(H) 9 - 16 mg/dL [facility] Creatinine, Serum 0.95 0.5 - 1.4 mg/dL [facility] Creatinine Clr Calc Pharmacy 53.0 [facility] Comment:Provided height and weight: 152.4 cm,65.2 kg.eGFR (calculated from the MDRD study equation) and eCrCl(calculated from the Cockcroft-Gault equation) are based ondifferent parameters and may not yield comparable results.If eCrCl result is absurd, please check patient'sheight/weight. Estimated Glomerular Filt Rate >60 [facility] Comment:NOTE: For -Am erican individuals, multiply the result by 1.210.Chronic Kidney Disease: Estimated GFR < 60 mL/min/1.33e5Ijrcyh Kidney Disease: Estimated GFR < 15 mL/min/1.73m2 Glucose 326(H) 60 - 115 mg/dL [facility] Calcium 9.1 8.4 - 10.2 mg/dL [facility] Bilirubin, Total 0.3 0.0 - 1.0 mg/dL [facility] Aspartate Amino Transferase 8 5 - 31 U/L [facility] Alanine Aminotransferase <6 0 - 31 U/L [facility] Total Protein 5.9(L) 6.5 - 8.0 g/dL [facility] Albumin Level 3.6 3.5 - 5.0 g/dL [facility] Alkaline Phosphatase 81 39 - 117 U/L [facility] 03/09/2022 5:39 PM EST 03/09/2022 5:43 PM EST us [facility] External Provider LAB BLO OD ORDERABLES Final Result [facility] [address], [place] [phone] * (ABNORMAL) CBC auto differential (03/09/2022 5:39 PM EST) White Blood Count 7.3 4.8 - 10.8 X10*3/uL [facility] Red Blood Count 4.03(L) 4.20 - 5.50 X10*6/uL [facility] Hemoglobin 11.7(L) 12.0 - 16.0 g/dl [facility] Hematocrit 35.1(L) 37.0 - 47.0 % [facility] Mean Corpuscular Volume 87.1 80.0 - 98.0 fL [facility] Mean Corpuscular Hemoglobin 29.0 27.0 - 33.0 pg [facility] Mean Corpuscular HGB Conc 33.3 31.0 - 35.0 g/dl [facility] Red Cell Distribution Width 13.4 11.0 - 16.0 % [facility] Platelet Count 296 160 - 400 X10*3/uL [facility] Mean Platelet Volume 9.3(L) 9.4 - 12.3 fL [facility] Neutrophils Percent Auto 63.9 45 - 73 % [facility] Imm Gran Pct Auto 0.1 0.0 - 0.4 % [facility] Lymphocytes Percent Auto 27.1 20 - 40 % [facility] Monocytes Percent Auto 5.9 2 - 11 % [facility] Eosinophils Percent Auto 2.6 0 - 4 % [facility] Basophils Percent Auto 0.4 0 - 2 % [facility] NRBC Pct Auto 0.0 0.0 - 0.2 /100WBC [facility] Neutrophils Absolute Auto 4.6 2.0 - 8.3 x10*3/uL [facility] Imm Gran Abs Auto 0.01 0.00 - 0.03 X10*3/uL [facility] Lymphocytes Absolute Auto 2.0 1.2 - 4.9 X10*3/uL [facility] Monocytes Absolute Auto 0.4 0.1 - 1.2 X10*3/uL [facility] Eosinophils Absolute Auto 0.2 0.0 - 0.4 X10*3/uL [facility] Basophils Absolute Auto 0.0 0.0 - 0.2 X10*3/uL [facility] NRBC Abs Auto 0.000 0.0 - 0.012 X10*3/uL [facility] 03/09/2022 5:39 PM EST 03/09/2022 5:43 PM EST [facility] External Provider LAB BLO OD ORDERABLES Final Result Performing Organization Address [facility] Co de Phone Number [facility] [address] [place] [address] [phone] * Prothrombin Time-INR (03/09/2022 5:39 PM EST) Prothrombin Time 10.9 10.0 - 13.1 SEC [facility] INTERNATIONAL NORM RATIO 1.0 0.9 - 1.1 [facility] Comment:INTERNATIONAL NORMAL IZED RATIO (INR) REFERENCE [...] 5:39 PM EST 03/09/2022 5:43 PM EST [facility] External Provider LAB BLO OD ORDERABLES Final Result Performing Organization Address [facility] Co de Phone Number [facility] [address] [place] [address] [phone] * GLUCOSE, WHOLE BLOOD (03/01/2022 12:41 AM EST) Glucose, Whole Blood 79 60 - 115 mg/dL [facility] Comment:METER #: [id number] 1 03/01/2022 12:4 1 AM EST 03/01/2022 12:46 AM EST [facility] External Provider LAB BLO OD ORDERABLES Final Result Performing Organization Address [facility] Co de Phone Number [facility] [address] [place] [address] [phone] * (ABNORMAL) GLUCOSE, WHOLE BLOOD (02/28/2022 10:39 PM EST) Glucose, Whole Blood 273(H) 60 - 115 mg/dL [facility] Comment:METER #: [id number] 1 02/28/2022 10:3 9 PM EST 02/28/2022 10:45 PM EST [facility] External Provider LAB BLO OD ORDERABLES Final Result Performing Organization Address [facility] de Phone Number [facility] [address] [place] [address] [phone] * (ABNORMAL) Comprehensive Metabolic Panel (02/28/2022 9:42 PM EST) Sodium 138 135 - 145 mmol/L [facility] Potassium 4.3 3.3 - 5.1 mmol/L [facility] Comment:Slight Hemolysis Chloride 106 96 - 108 mmol/L [facility] Carbon Dioxide 24 22 - 29 mmol/L [facility] Anion Gap 12 12 - 20 [facility] Urea Nitrogen (BUN) 14 9 - 16 mg/dL [facility] Creatinine, Serum 0.87 0.5 - 1.4 mg/dL [facility] Creatinine Clr Calc Pharmacy 57.2 [facility] Comment:Provided height and weight: 152.4 cm,63.503 kg.eGFR (calculated from the MDRD study equation) and eCrCl(calculated from the Cockcroft-Gault equation) are based ondifferent parameters and may not yield comparable results.If eCrCl result is absurd, please check patient'sheight/weight. Estimated Glomerular Filt Rate >60 [facility] Comment:NOTE: For -Am erican individuals, multiply the result by 1.210.Chronic Kidney Disease: Estimated GFR < 60 mL/min/1.38x3Jxnmou Kidney Disease: Estimated GFR < 15 mL/min/1.73m2 Glucose 378(HH) 60 - 115 mg/dL [facility] Comment:Critical value for t est(s): GLUR Results called to and readback by: EULA Person calling: HASTINS Date: 02/28/22Time: 2219 Calcium 9.3 8.4 - 10.2 mg/dL [facility] Bilirubin, Total 0.3 0.0 - 1.0 mg/dL [facility] Aspartate Amino Transferase 12 5 - 31 U/L [facility] Comment:Slight Hemolysis Alanine Aminotransferase 7 0 - 31 U/L [facility] Total Protein 6.7 6.5 - 8.0 g/dL [facility] Albumin Level 3.9 3.5 - 5.0 g/dL [facility] Alkaline Phosphatase 83 39 - 117 U/L [facility] 02/28/2022 9:42 PM EST 02/28/2022 9:48 PM EST us [facility] External Provider LAB BLO OD ORDERABLES Final Result [facility] [address] [place] [address] [phone] * HIGH SENSITIVITY TROPONIN I (02/28/2022 9:42 PM EST) TROPONIN I HIGH SENSITIVITY 7.1 <3.5 - 17.0 ng/L [facility] Comment:The Ibrahim high sens itivity Troponin-I results should beused in conjunction with other diagnostic information suchas ECG, clinical observations and information, and patientsymptoms to aid in the diagnosis of [facility]. 02/28/2022 9:42 PM EST 02/28/2022 9:48 PM EST [facility] External Provider LAB BLO OD ORDERABLES Final Result [facility] [address] [place] [phone] * (ABNORMAL) CBC (02/28/2022 9:42 PM EST) White Blood Count 7.0 4.8 - 10.8 X10*3/uL [facility] Red Blood Count 4.22 4.20 - 5.50 X10*6/uL [facility] Hemoglobin 12.1 12.0 - 16.0 g/dl [facility] Hematocrit 36.4(L) 37.0 - 47.0 % [facility] Mean Corpuscular Volume 86.3 80.0 - 98.0 fL [facility] Mean Corpuscular Hemoglobin 28.7 27.0 - 33.0 pg [facility] Mean Corpuscular HGB Conc 33.2 31.0 - 35.0 g/dl [facility] Red Cell Distribution Width 13.3 11.0 - 16.0 % [facility] Platelet Count 311 160 - 400 X10*3/uL [facility] Mean Platelet Volume 9.7 9.4 - 12.3 fL [facility] NRBC Pct Auto 0.0 0.0 - 0.2 /100WBC [facility] NRBC Abs Auto 0.000 0.0 - 0.012 X10*3/uL [facility] 02/28/2022 9:42 PM EST 02/28/2022 9:48 PM EST [facility] External Provider LAB BLO OD ORDERABLES Final Result [facility] [address] [place] [phone] * (ABNORMAL) GLUCOSE, WHOLE BLOOD (02/28/2022 9:38 PM EST) Glucose, Whole Blood 379(HH) 60 - 115 mg/dL [facility] Comment:METER #: [id number] 1 02/28/2022 9:38 PM EST 02/28/2022 9:48 PM EST us [facility] External Provider LAB BLO OD ORDERABLES Final Result [facility] [address] [place] [phone] * (ABNORMAL) Urinalysis, Complete, with Reflex to Culture (02/22/2022 3:20 PM EST) Color Urine Yellow [facility] Appearance Urine Cloudy [facility] PH 6.5 5.0 - 9.0 [facility] Glucose Urine UA >=1000(A) Negative mg/dL [facility] Urine Blood Negative Negative [facility] Specific Portal - Urine 1.020 1.005 - 1.025 [facility] Urine Protein 100 (2+)(A) Neg-Trace mg/dL [facility] Urine Ketones Negative Negative mg/dL [facility] Nitrite Urine Negative Negative [facility] Leukocyte Esterase Urine Small (1+)(A) Negative [facility] RBC Urine 3-5(A) 0 - 2 /HPF [facility] Urine WBC 0-5 0 - 5 /HPF [facility] Urine Squamous Epithelial Cell 0-2 0 - 2 /HPF [facility] Urine Bacteria None Seen None Seen [facility] Hyaline Casts, Urine 3-5 0 - 2 /LPF [facility] 02/22/2022 3:20 PM EST 02/22/2022 3:27 PM EST Narrative [facility] - 02/22/2022 4:14 PM EST [id number], Clean Catch [facility] External Provider LAB URI NE ORDERABLES Final Result Performing Organization Address [facility] de Phone Number [facility] [address] [place] [address] [phone] * SARS-CoV-2 RNA, Influenza A/B, and RSV RNA, Ql NAAT (02/22/2022 3:14 PM EST) [facility] Influenza A PCR NEGATIVE Negative [facility] Influenza B PCR NEGATIVE Negative [facility] Resp Syncy Virus RNA Qual PCR NEGATIVE Negative [facility] SARS COV2 PCR NEGATIVE Negative [facility] SARS/Flu/RSV Note See Note [facility] Comment:All test results mus t [...] use by authorized laboratories.Testing performed on the [employer] GeneXpert utilizingreal-time RT-PCR.All SARS CoV2 and positive influenza A/B results arereported to [facility]. 02/22/2022 3:14 PM EST 02/22/2022 3:19 PM EST [facility] Exter nal Provider LAB MICROBIOLOGY - GENERAL ORDERABLES Final Result Performing Organization Address [facility] Co de Phone Number [facility] [address] [place] [address] [phone] * HIGH SENSITIVITY TROPONIN I (02/22/2022 3:14 PM EST) [facility] TROPONIN I HIGH SENSITIVITY 8.8 <3.5 - 17.0 ng/L [facility] Comment:The Ibrahim high sens itivity Troponin-I results should beused in conjunction with other diagnostic information suchas ECG, clinical observations and information, and patientsymptoms to aid in the diagnosis of [facility]. 02/22/2022 3:14 PM EST 02/22/2022 3:19 PM EST [facility] External Provider LAB BLO OD ORDERABLES Final Result Performing Organization Address [facility] Co de Phone Number [facility] [address] [place] [phone] * Magnesium (02/22/2022 3:14 PM EST) Magnesium 1.6 1.6 - 2.6 mg/dL [facility] 02/22/2022 3:14 PM EST 02/22/2022 3:19 PM EST [facility] External Provider LAB BLO OD ORDERABLES Final Result Performing Organization Address [facility] Phone Number [facility] [address] [place] [address] [phone] * (ABNORMAL) Basic Metabolic Panel (02/22/2022 3:14 PM EST) Sodium 136 135 - 145 mmol/L [facility] Potassium 4.4 3.3 - 5.1 mmol/L [facility] Chloride 103 96 - 108 mmol/L [facility] Carbon Dioxide 27 22 - 29 mmol/L [facility] Anion Gap 10(L) 12 - 20 [facility] Urea Nitrogen (BUN) 20(H) 9 - 16 mg/dL [facility] Creatinine, Serum 0.99 0.5 - 1.4 mg/dL [facility] Creatinine Clr Calc Pharmacy 50.6 [facility] Comment:Provided height and weight: 152.4 cm,64.5 kg.eGFR (calculated from the MDRD study equation) and eCrCl(calculated from the Cockcroft-Gault equation) are based ondifferent parameters and may not yield comparable results.If eCrCl result is absurd, please check patient'sheight/weight. Estimated Glomerular Filt Rate 57 [facility] Comment:NOTE: For -Am erican individuals, multiply the result by 1.210.Chronic Kidney Disease: Estimated GFR < 60 mL/min/1.08g6[place] Kidney Disease: Estimated GFR < 15 mL/min/1.73m2 Glucose 343(H) 60 - 115 mg/dL [facility] Calcium 9.3 8.4 - 10.2 mg/dL [facility] 02/22/2022 3:14 PM EST 02/22/2022 3:19 PM EST [facility] External Provider LAB BLO OD ORDERABLES Final Result Performing Organization Address [facility] de Phone Number [facility] [address] [place] [address] [phone] * (ABNORMAL) Hepatic Function Panel (02/22/2022 3:14 PM EST) Bilirubin, Total 0.4 0.0 - 1.0 mg/dL [facility] Bilirubin, Direct <0.2 0.0 - 0.5 mg/dL [facility] Aspartate Amino Transferase 10 5 - 31 U/L [facility] Alanine Aminotransferase 6 0 - 31 U/L [facility] Total Protein 6.1(L) 6.5 - 8.0 g/dL [facility] Albumin Level 3.7 3.5 - 5.0 g/dL [facility] Alkaline Phosphatase 82 39 - 117 U/L [facility] 02/22/2022 3:14 PM EST 02/22/2022 3:19 PM EST [facility] External Provider LAB BLO OD ORDERABLES Final Result Performing Organization Address [facility] de Phone Number [facility] [address] [place] [address] [phone] * (ABNORMAL) CBC auto differential (02/22/2022 3:14 PM EST) White Blood Count 5.6 4.8 - 10.8 X10*3/uL [facility] Red Blood Count 3.99(L) 4.20 - 5.50 X10*6/uL [facility] Hemoglobin 11.8(L) 12.0 - 16.0 g/dl [facility] Hematocrit 35.1(L) 37.0 - 47.0 % [facility] Mean Corpuscular Volume 88.0 80.0 - 98.0 fL [facility] Mean Corpuscular Hemoglobin 29.6 27.0 - 33.0 pg [facility] Mean Corpuscular HGB Conc 33.6 31.0 - 35.0 g/dl [facility] Red Cell Distribution Width 13.2 11.0 - 16.0 % [facility] Platelet Count 265 160 - 400 X10*3/uL [facility] Mean Platelet Volume 10.0 9.4 - 12.3 fL [facility] Neutrophils Percent Auto 49.1 45 - 73 % [facility] Imm Gran Pct Auto 0.4 0.0 - 0.4 % [facility] Lymphocytes Percent Auto 40.1(H) 20 - 40 % [facility] Monocytes Percent Auto 6.1 2 - 11 % [facility] Eosinophils Percent Auto 3.4 0 - 4 % [facility] Basophils Percent Auto 0.9 0 - 2 % [facility] NRBC Pct Auto 0.0 0.0 - 0.2 /100WBC [facility] Neutrophils Absolute Auto 2.7 2.0 - 8.3 x10*3/uL [facility] Imm Gran Abs Auto 0.02 0.00 - 0.03 X10*3/uL [facility] Lymphocytes Absolute Auto 2.2 1.2 - 4.9 X10*3/uL [facility] Monocytes Absolute Auto 0.3 0.1 - 1.2 X10*3/uL [facility] Eosinophils Absolute Auto 0.2 0.0 - 0.4 X10*3/uL [facility] Basophils Absolute Auto 0.1 0.0 - 0.2 X10*3/uL [facility] NRBC Abs Auto 0.000 0.0 - 0.012 X10*3/uL [facility] 02/22/2022 3:14 PM EST 02/22/2022 3:19 PM EST [facility] External Provider LAB BLO OD ORDERABLES Final Result Performing Organization Address City/[facility] Co de Phone Number [facility] [address] [place] [phone] * Culture, Urine, Routine (02/22/2022 12:00 AM EST) 02/22/2022 02/22/2022 5:2 3 PM EST Comment:UACC Narrative [facility] - 02/24/2022 11:31 AM EST Urine Culture Report Result Urine Culture 10,000 to 50,000 cfu/ml Urine Culture Mixed bacterial benton characteristic of Urine Culture urogenital contamination. Specimen Source: Urine clean catch [facility] Exter nal Provider LAB MICROBIOLOGY - GENERAL ORDERABLES Final Result Performing Organization Address [facility] Co de Phone Number [facility] [address] [place] [address] [phone] documented in this encounter Visit Diagnoses Not on filedocumented in this encounter Care Teams Infant Caregiver Relationship Specialty Start Date End Date Radha Jamison DO [address] [place] [phone] PCP - General Family Medicine 01/26/12 Abdias Murillo, PharmD [address] [place] [address] [phone] Pharmacist Internal Medicine 03/21/22 08/30/23 Nelia Sullivan, Camron [address] [place] [address] Pharmacist Internal Medicine 08/31/23 Letty Rinaldi 12/16/24 12/18/24 Dalila Carson, RN [address] [place] [address] [phone] Registered Nurse Family Medicine 12/31/24 Ekta Reynolds 12/31/24 Laurel Monterroso Floor RunnerCore Drier 02/20/25 Saige Aguilar 09/26/23 documented as of this encounter
--- OUTSIDE RECORDS SUMMARY | 2025-03-25 12:36 | XMS_ITS | Encounter Summary ---
Author Organization [employer] Address 75 [facility] 7t [place] [address] Care Team Providers Care Devulcanizer Loader Name Role Phone Radha Jamison DO Primary Care Provider Abdias Murillo PharmD Unavailable Unavail able Nelia Sullivan PharmD Unavailable [phone] Letty Rinaldi Unavailable Dalila Carson RN Unavailable Ekta Reynolds Unavailable Reason for Visit * Reason Comments Med Refill Encounter Details Date Type Department Care Team (Late st Contact Info) Description 06/10/2022 Refill [facility] MEDICINE [address] [place], [place] [phone] Radha Jamison DO 230 [place], [place] [phone] Chronic bilateral low back pain, unspecified whether [...] 11:00 AM EST Medication Management [facility] MED[facility] [address] [place] [address] Nelia Sullivan PharmD 230 [place] [address] documented as of this encounter Goals Goal [...] documented as of this encounter Care Teams Devulcanizer Loader Relationship Specialty Start Date End Date Radha Jamison DO 230 [place] [address] PCP - General Family Medicine 01/26/12 Abdias Murillo PharmD [address] [place] [address] Pharmacist Internal Medicine 03/21/22 08/30/23 Nelia Sullivan PharmD 230 [place] [address] Pharmacist Internal Medicine 08/31/23 Letty Rinaldi 12/16/24 12/18/24 Dalila Carson, JOANN [address] [place] [address] Registered Nurse Family Medicine 12/31/24 Ekta Reynolds 12/31/24 Laurel Monterroso Windows Server Support TechnicianLime Spreader 02/20/25 Saige [facility] 09/26/23 documented as of this encounter
--- OUTSIDE RECORDS SUMMARY | 2025-03-25 12:36 | XMS_ITS | Encounter Summary ---
Author Organization [employer] Address 75 [facility] 7t [place] [address] Care Team Providers Care Security Tester Name Role Phone Radha Jamison DO Primary Care Provider Abdias Murillo PharmD Unavailable Unavail able Nelia Sullivan PharmD Unavailable Letty Rinaldi Unavailable Dalila Carson RN Unavailable [phone] Ekta Reynolds Unavailable Reason for Visit * Reason Comments Med Refill Encounter Details Date Type Department Care Team (Late Contact Info) Description 01/31/2022 Refill [facility] 230 [place] [address] Radha Jamison DO 230 [place] [address] Chronic bilateral low back pain, unspecified whether [...] Description 04/18/2025 11:00 AM EST Medication Management [facility] 230 [place] [address] Nelia Sullivan PharmD 230 [place] [address] documented as of this encounter Visit Diagnoses Diagnosis Chronic bilateral low back pain, unspecified whether sciatica present documented in this encounter Care Teams Security Tester Relationship Specialty Start Date End Date Radha Jamison DO [address] [place] [address] PCP - General Family Medicine 01/26/12 Abdias Murillo, KeithD [address] [place] [address] Pharmacist Internal Medicine 03/21/22 08/30/23 Nelia Sullivan PharmD [address] [place] [address] Pharmacist Internal Medicine 08/31/23 Letty Rinaldi 12/16/24 12/18/24 Dalila Carson, JOANN [address] [place] [address] Registered Nurse Family Medicine 12/31/24 Ekta Reynolds 12/31/24 Laurel Monterroso Radio Equipment RepairerHealthcare Representative 02/20/25 Saige Aguilar 09/26/23 documented as of this encounter
--- OUTSIDE RECORDS SUMMARY | 2025-03-25 12:36 | XMS_ITS | Encounter Summary ---
Author Organization [employer] Address 75 [facility] 7t [place] [address] Care Team Providers Care Scrap Worker Name Role Phone Radha Jamison DO Primary Care Provider Abdias Murillo PharmD Unavailable Unavail able Nelia Sullivan PharmD Unavailable Letty Rinaldi Unavailable Dalila Carson RN Unavailable Ekta Reynolds Unavailable Reason for Visit * Reason Comments Med Refill Encounter Details Date Type Department Care Team (Late st Contact Info) Description 01/24/2022 Telephone [facility] [address] [place] [address] Radha Jamison DO 230 [place] [address] Med Refill Social History Tobacco Use Types [...] Description 04/18/2025 11:00 AM EST Medication Management [facility] 230 [place] [address] Nelia Sullivan PharmD [address] [place] [address] documented as of this encounter Visit Diagnoses Diagnosis Chronic bilateral low back pain, unspecified whether sciatica present documented in this encounter Care Teams Scrap Worker Relationship Specialty Start Date End Date Radha Jamison DO [address] [place] [address] PCP - General Family Medicine 01/26/12 Abdias Murillo PharmD [address] [place] [address] Pharmacist Internal Medicine 03/21/22 08/30/23 Nelia Sullivan PharmD [address] [place] [address] Pharmacist Internal Medicine 08/31/23 Letty Rinaldi 12/16/24 12/18/24 Dalila Carson, JOANN [address] [place] [address] Registered Nurse Family Medicine 12/31/24 Ekta Reynolds 12/31/24 Laurel Monterroso Auto Parts Delivery DriverGlass Blower Helper 02/20/25 Saige Aguilar 09/26/23 documented as of this encounter
--- OUTSIDE RECORDS SUMMARY | 2025-03-25 12:36 | XMS_ITS | Encounter Summary ---
Author Organization [employer] Address 75 [facility] 7t [place] [address] Care Team Providers Care Supervisor Burling And Joining Name Role Phone Radha Jamison DO Primary Care Provider [phone] Abdias Murillo PharmD Unavailable Unavail able Nelia Sullivan PharmD Unavailable Letty Rinaldi Unavailable Dalila Carson RN Unavailable [phone] Ekta Reynolds Unavailable Encounter Details Date Type Department Care Team (Late st Contact Info) Description 10/10/2022 Telephone [facility] MEDICINE 230 [place], [place] [phone] Radha Jamison DO 230 [place], [place] [phone] Social History Tobacco Use Types Packs/Day Years [...] Description 04/18/2025 11:00 AM EST Medication Management [facility] MEDICINE 230 [place] [address] Nelia Sullivan PharmD 230 [place], [place] documented as of this encounter Goals [...] as of this encounter Care Teams Supervisor Burling And Joining Relationship Specialty Start Date End Date Radha Jamison DO [address] [place] [address] PCP - General Family Medicine 01/26/12 Abdias Murillo, PharmD [address] [place] [address] Pharmacist Internal Medicine 03/21/22 08/30/23 Nelia Sullivan, PharmD [address] [place] [address] Pharmacist Internal Medicine 08/31/23 Letty Rinaldi 12/16/24 12/18/24 Dalila Carson RN [address] [place] [address] Registered Nurse Family Medicine 12/31/24 Ekta Reynolds 12/31/24 Laurel Monterroso Non Licensed OperatorGrapple Skidder Operator 02/20/25 Saige Aguilar 09/26/23 documented as of this encounter
--- OUTSIDE RECORDS SUMMARY | 2025-03-25 12:36 | XMS_ITS | Encounter Summary ---
Author Organization [employer] Address 75 [facility] 7t [place] [address] Care Team Providers Care Secretary Specialist Name Role Phone Radha Jamison DO Primary Care Provider Nelia Sullivan PharmD Unavailable Letty Rinaldi Unavailable Dalila Carson RN Unavailable [phone] Ekta Reynolds Unavailable Reason for Visit * Reason Comments Med Refill Encounter Details Date Type Department Care Team (Late st Contact Info) Description 10/30/2023 Refill [facility] MEDICINE 230 [place], [place] [phone] Radha Jamison DO 230 [place], [place] [phone] Chronic bilateral low back pain, unspecified whether [...] Description 04/18/2025 11:00 AM EST Medication Management [facility] MED[facility]INE [address] [place] [address] Nelia Sullivan, PharmD 230 [place] [address] documented as of this encounter Goals Goal [...] documented as of this encounter Care Teams Secretary Specialist Relationship Specialty Start Date End Date Radha Jamison DO 230 [place], [place] [phone] PCP - General Family Medicine 01/26/12 Nelia Sullivan PharmD 230 [place] [address] Pharmacist Internal Medicine 08/31/23 Letty Rinaldi 12/16/24 12/18/24 Dalila Carson, JOANN [address] [place] [address] Registered Nurse Family Medicine 12/31/24 Ekta Reynolds 12/31/24 Laurel Monterroso Ground Equipment MechanicHemodialysis Rn 02/20/25 Saige Aguilar 09/26/23 documented as of this encounter
--- OUTSIDE RECORDS SUMMARY | 2025-03-25 12:36 | XMS_ITS | Encounter Summary ---
Author Organization [employer] Address 75 [facility] 7t [place] [address] Care Team Providers Care Furs Salesperson Name Role Phone Radha Jamison DO Primary Care Provider [phone] Abdias Murillo PharmD Unavailable Unavail able Nelia Sullivan PharmD Unavailable Letty Rianldi Unavailable Dalila Carson RN Unavailable [phone] Ekta Reynolds Unavailable Reason for Visit * Reason Comments Med Refill Encounter Details Date Type Department Care Team (Late st Contact Info) Description 12/20/2022 Refill [facility] 230 [place], [place] [phone] Radha Jamison DO 230 [place], [place] [phone] Chronic bilateral low back pain, unspecified whether [...] AM EST Medication Management [facility] [address] [place] [address] Nelia Sullivan PharmD [address] [place] [address] documented as of this encounter Goals Goal [...] documented as of this encounter Care Teams Furs Salesperson Relationship Specialty Start Date End Date Radha Jamison DO [address] [place] [address] PCP - General Family Medicine 01/26/12 Abdias Murillo, PharmD [address] [place] [address] Pharmacist Internal Medicine 03/21/22 08/30/23 Nelia Sullivan, Camron [address] [place] [address] Pharmacist Internal Medicine 08/31/23 Letty Rinaldi 12/16/24 12/18/24 Dalila Carson, RN [address] [place] [address] Registered Nurse Family Medicine 12/31/24 Ekta Reynolds 12/31/24 Laurel Monterroso Circuit Board Repair TechnicianSeptic Pump Truck Driver 02/20/25 Saige Aguilar 09/26/23 documented as of this encounter
--- OUTSIDE RECORDS SUMMARY | 2025-03-25 12:36 | XMS_ITS | Encounter Summary ---
Author Organization [employer] Address 75 [facility] 7t [place] [address] Care Team Providers Care Bar Roller Name Role Phone Radha Jamison DO Primary Care Provider Abdias Murillo PharmD Unavailable Unavail able Nelia Sullivan PharmD Unavailable Letty Rinaldi Unavailable Dalila Carson RN Unavailable [phone] Ekta Reynolds Unavailable Reason for Visit * Reason Comments Med Refill Encounter Details Date Type Department Care Team (Late st Contact Info) Description 08/30/2023 Refill [facility] MEDICINE 230 [place], [place] [phone] Radha Jamison DO 230 [place], [place] [phone] Chronic bilateral low back pain, unspecified whether [...] [facility] 230 [place] [address] Nelia Sullivan PharmD 230 [place] [address] documented as of this encounter Goals Goal Patient Goal Type Associated Problems Recent Progress Patient-Stated? Author Record your blood pressure once per day Blood Pressure No Nelia Sullivan, PharmD Blood Pressure < 140/90 Blood Pressure 180/72(2025 11:39 AM EST) No Yazmin Sullivansa, PharmD Smoking cessation General No PuiaFeliceNelia, PharmD Patient will adhere to medication regimen General No Yamzin Sullivansa, PharmD Hemoglobin A1c < 7 Result [...] documented as of this encounter Care Teams Bar Roller Relationship Specialty Start Date End Date Radha Jamison DO 230 [place] [address] PCP - General Family Medicine 01/26/12 Abdias Murillo PharmD 230 [place] [address] Pharmacist Internal Medicine 03/21/22 08/30/23 Nelia Sullivan PharmD 230 [place] [address] Pharmacist Internal Medicine 08/31/23 Letty Rinaldi 12/16/24 12/18/24 Dalila Carson, JOANN [address] [place] [address] Registered Nurse Family Medicine 12/31/24 Ekta Reynolds 12/31/24 Laurel Monterroso Drier Tender NaphthaleneCork Pressing Machine Operator 02/20/25 Saige Aguilar 09/26/23 documented as of this encounter
--- OUTSIDE RECORDS SUMMARY | 2025-03-25 12:36 | XMS_ITS | Encounter Summary ---
Author Organization [employer] Address 75 [facility] 7t [place] [address] Care Team Providers Care Glycerin Supervisor Name Role Phone Radha Jamison DO Primary Care Provider Abdias Murillo PharmD Unavailable Unavail able Nelia Sullivan PharmD Unavailable Letty Rinaldi Unavailable Dalila Carson RN Unavailable [phone] Ekta Reynolds Unavailable Reason for Visit * Reason Comments Med Refill Encounter Details Date Type Department Care Team (Late st Contact Info) Description 03/14/2023 Refill [facility] MEDICINE 230 [place], [place] [phone] Radha Jamison DO 230 [place], [place] [phone] Chronic bilateral low back pain, unspecified whether [...] Description 04/18/2025 11:00 AM EST Medication Management [facility] MEDICINE [address] [place] [address] Nelia Sullivan PharmD 230 [place] [address] documented as of this encounter Goals Goal [...] documented as of this encounter Care Teams Glycerin Supervisor Relationship Specialty Start Date End Date Radha Jamison DO [address] [place] [address] PCP - General Family Medicine 01/26/12 Abdias Murillo, PharmD [address] [place] [address] Pharmacist Internal Medicine 03/21/22 08/30/23 Nelia Sullivan, Camron 230 [place] [address] Pharmacist Internal Medicine 08/31/23 Letyt Rinaldi 12/16/24 12/18/24 Dalila Carson, RN [address] [place] [address] Registered Nurse Family Medicine 12/31/24 Ekta Reynolds 12/31/24 Laurel Monterroso School Age Program AssociateAccounts Receivable Processor 02/20/25 Saige Aguilar 09/26/23 documented as of this encounter
--- OUTSIDE RECORDS SUMMARY | 2025-03-25 12:36 | XMS_ITS | Encounter Summary ---
Author Organization [employer] Address 75 [facility] 7t [place] [address] Care Team Providers Care Glass Smoother Name Role Phone Radha Jamison DO Primary Care Provider [phone] Abdias Murillo PharmD Unavailable Unavail able Nelia Sullivan PharmD Unavailable [phone] Letty Rinaldi Unavailable Dalila Carson RN Unavailable [phone] Ekta Reynolds Unavailable Reason for Visit * Reason Comments Med Refill Encounter Details Date Type Department Care Team (Late st Contact Info) Description 10/25/[address] [facility] MEDICINE 230 [place], [place] [phone] Radha Jamison DO 230 [place] [address] Chronic bilateral low back pain, unspecified whether [...] 11:00 AM EST Medication Management [facility] MEDICINE [address] [place] [address] Nelia Sullivan PharmD [address] [place] [address] documented as of this encounter Goals Goal [...] as of this encounter Care Teams Glass Smoother Relationship Specialty Start Date End Date Radha Jamison DO 230 [place] [address] PCP - General Family Medicine 01/26/12 Abdias Murillo, PharmD 230 [place] [address] Pharmacist Internal Medicine 03/21/22 08/30/23 Nelia Sullivan PharmD 230 [place] [address] Pharmacist Internal Medicine 08/31/23 Letty Rinaldi 12/16/24 12/18/24 Dalila Carson, JOANN [address] [place] [address] Registered Nurse Family Medicine 12/31/24 Ekta Reynolds 12/31/24 Laurel Monterroso Food And Beverage Outlets ManagerTool Room Machinist 02/20/25 Saige Aguilar 09/26/23 documented as of this encounter
--- OUTSIDE RECORDS SUMMARY | 2025-03-25 12:36 | XMS_ITS | Encounter Summary ---
Author Organization [employer] Address 75 [facility] 7t [place] [address] Care Team Providers Care Review Assistant Name Role Phone Radha Jamison DO Primary Care Provider [phone] Abdias Murillo PharmD Unavailable Unavail able Nelia Sullivan PharmD Unavailable Letty Rinaldi Unavailable Dalila Carson RN Unavailable Ekta Reynolds Unavailable Reason for Visit * Reason Comments Med Refill Encounter Details Date Type Department Care Team (Late st Contact Info) Description 07/20/2022 Refill [facility] 230 [place], [place] [phone] Radha Jamison DO 230 [place] [address] Hypertension, unspecified type Social History Tobacco Use [...] Description 04/18/2025 11:00 AM EST Medication Management [facility] 230 [place] [address] Nelia Sullivan PharmD [address] [place] [address] documented as of this encounter Goals Goal Patient Goal Type Associated Problems Recent Progress Patient-Stated? Author Hemoglobin A1c < 7 Result Component 10.9( 1:19 PM EST) No Abdias Murillo, PharmAdrian documented as of this encounter Visit Diagnoses Diagnosis Hypertension, unspecified type documented in this encounter Additional Health Concerns Assessment Noted Time PHQ-9 Depression Total Score: 14 023 12:00 PM EST documented as of this encounter Care Teams Review Assistant Relationship Specialty Start Date End Date Radha Jamison DO [address] [place] [address] PCP - General Family Medicine 01/26/12 Abdias Murillo, PharmD [address] [place] [address] Pharmacist Internal Medicine 03/21/22 08/30/23 Nelia Sullivan, PharmD [address] [place] [address] Pharmacist Internal Medicine 08/31/23 Letty Rinaldi 12/16/24 12/18/24 Dalila Carson, JOANN [address] [place] [address] Registered Nurse Family Medicine 12/31/24 Ekta Reynolds 12/31/24 Laurel Monterroso Rn AdvancedMandolin Repair Person 02/20/25 Saige Aguilar 09/26/23 documented as of this encounter
--- OUTSIDE RECORDS SUMMARY | 2025-03-25 12:36 | XMS_ITS | Encounter Summary ---
Author Organization [employer] Address 75 [facility] 7t [place] [address] Care Team Providers Care Cycling Instructor Name Role Phone Radha Jamison DO Primary Care Provider [phone] Abdias Murillo PharmD Unavailable Unavail able Nelia Sullivan PharmD Unavailable [phone] Letty Rinaldi Unavailable Dalila Carson RN Unavailable [phone] Ekta Reynolds Unavailable Reason for Visit * Reason Onset Date Comments Durable Medical Equipment 09/08/2022 Encounter Details Date Type Department Care Team (Late st Contact Info) Description 09/08/2022 Telephone [facility] MEDICINE 230 [place], [place] [phone] Radha Jamison DO 230 [place], [place] [phone] Durable Medical Equipment Social History Tobacco Use [...] is not working. Please contact pt at [phone] documented in this encounter Plan of Treatment Upcoming Encounters Date Type Department Care Team (Late st Contact Info) Description 04/18/2025 11:00 AM EST Medication Management [facility] MEDICINE [address] [place] [address] Nelia Sullivan PharmD [address] [place] [address] documented as of this encounter Goals Goal [...] documented as of this encounter Care Teams Cycling Instructor Relationship Specialty Start Date End Date Radha Jamison DO [address] [place] [address] PCP - General Family Medicine 01/26/12 Abdias Murillo, PharmD [address] [place] [address] Pharmacist Internal Medicine 03/21/22 08/30/23 Nelia Sullivan PharmD [address] [place] [address] Pharmacist Internal Medicine 08/31/23 Letty Rinaldi 12/16/24 12/18/24 Dalila Carson, RN [address] [place] [address] Registered Nurse Family Medicine 12/31/24 Ekta Reynolds 12/31/24 Laurel Monterroso Production ManagerPlastic Sewer 02/20/25 Saige Aguilar 09/26/23 documented as of this encounter
--- OUTSIDE RECORDS SUMMARY | 2025-03-25 12:36 | XMS_ITS | Encounter Summary ---
Author Organization [employer] Address 75 [facility] 7t [place] [address] Care Team Providers Care Nursing Support Worker Name Role Phone Radha Jamison DO Primary Care Provider [phone] Abdias Murillo PharmD Unavailable Unavail able Nelia Sullivan PharmD Unavailable [phone] Letty Rinaldi Unavailable Dalila Carson RN Unavailable [phone] Ekta Reynolds Unavailable Reason for Visit * Reason Comments Med Refill Encounter Details Date Type Department Care Team (Late st Contact Info) Description 12/21/2022 Refill [facility] MEDICINE 230 [place], [place] [phone] Radha Jamison DO 230 [place], [place] [phone] Chronic bilateral low back pain, unspecified whether [...] Description 04/18/2025 11:00 AM EST Medication Management [facility] [address] [place] [address] Nelia Sullivan PharmD [address] [place] [address] documented as of this encounter Goals Goal [...] documented as of this encounter Care Teams Nursing Support Worker Relationship Specialty Start Date End Date Radha Jamison DO [address] [place] [address] PCP - General Family Medicine 01/26/12 Abdias Murillo, PharmD [address] [place] [address] Pharmacist Internal Medicine 03/21/22 08/30/23 Nelia Sullivan, Camron [address] [place] [address] Pharmacist Internal Medicine 08/31/23 Letty Rinaldi 12/16/24 12/18/24 Dalila Carson, RN [address] [place] [address] Registered Nurse Family Medicine 12/31/24 Ekta Reynolds 12/31/24 Laurel Monterroso Pit SupervisorFreight Booker 02/20/25 Saige Aguilar 09/26/23 documented as of this encounter
--- OUTSIDE RECORDS SUMMARY | 2025-03-25 12:36 | XMS_ITS | Encounter Summary ---
Author Organization [employer] Address 75 [facility] 7t [place] [address] Care Team Providers Care Media Traffic Manager Name Role Phone Radha Jamison DO Primary Care Provider [phone] Abdias Murillo PharmD Unavailable Unavail able Nelia Sullivan PharmD Unavailable [phone] Letty Rinaldi Unavailable Dalila Carson RN Unavailable [phone] Ekta Reynolds Unavailable Reason for Visit * Reason Comments Med Refill Encounter Details Date Type Department Care Team (Late st Contact Info) Description 12/22/2022 Refill [facility] MEDICINE 230 [place], [place] [phone] Radha Jamison DO 230 [place] [address] Chronic bilateral low back pain, unspecified whether [...] EST Medication Management [facility] MEDICINE [address] [place] [address] Nelia Sullivan PharmD 230 [place] [address] documented as of this encounter Goals Goal [...] documented as of this encounter Care Teams Media Traffic Manager Relationship Specialty Start Date End Date Radha Jamison DO [address] [place] [address] PCP - General Family Medicine 01/26/12 Abdias Murillo, PharmD [address] [place] [address] Pharmacist Internal Medicine 03/21/22 08/30/23 Nelia Sullivan, Camron [address] [place] [address] Pharmacist Internal Medicine 08/31/23 Letty Rinaldi 12/16/24 12/18/24 Dalila Carson, RN [address] [place] [address] Registered Nurse Family Medicine 12/31/24 Ekta Reynolds 12/31/24 Laurel Monterroso Floral SpecialistFamily Law Legal Assistant 02/20/25 Saige Aguilar 09/26/23 documented as of this encounter
--- OUTSIDE RECORDS SUMMARY | 2025-03-25 12:36 | XMS_ITS | Encounter Summary ---
Author Organization [employer] Address [address] [facility] [address] [place] [address] Care Team Providers Care Printed Circuit Board Panels Deburrer Name Role Phone Radha Jamison DO Primary Care Provider Abdias Murillo PharmD Unavailable Unavail able Nelia Sullivan PharmD Unavailable [phone] Letty Rinaldi Unavailable Dalila Carson RN Unavailable [phone] Ekta Reynolds Unavailable Reason for Visit * Reason Comments Med Refill Encounter Details Date Type Department Care Team (Late st Contact Info) Description 08/01/2023 Refill [facility] MEDICINE [address] [place], [place] [phone] Radha Jamison DO [address] [place], [place] [phone] Chronic bilateral low back pain, unspecified whether [...] 11:00 AM EST Medication Management [facility] MEDICINE [address] [place] [address] Nelia Sullivan PharmD [address] [place] [address] documented as of this encounter Goals Goal [...] of this encounter Care Teams Printed Circuit Board Panels Deburrer Relationship Specialty Start Date End Date Radha Jamison DO [address] [place] [address] PCP - General Family Medicine 01/26/12 Abdias Murillo, KeithD [address] [place] [address] Pharmacist Internal Medicine 03/21/22 08/30/23 Nelia Sullivan, KeithD [address] [place] [address] Pharmacist Internal Medicine 08/31/23 Letty Rinaldi 12/16/24 12/18/24 Dalila Carson, RN [address] [place] [id number] Registered Nurse Family Medicine 12/31/24 Ekta Reynolds 12/31/24 Laurel Monetrroso Barrel BuilderBig Machine Consultant 02/20/25 Saige Aguilar 09/26/23 documented as of this encounter
--- OUTSIDE RECORDS SUMMARY | 2025-03-25 12:36 | XMS_ITS | Encounter Summary ---
Author Organization [employer] Address [address] [facility] [address] [place] [address] Care Team Providers Care Switch House Operator Name Role Phone Radha Jamison DO Primary Care Provider Abdias Murillo PharmD Unavailable Unavail able Nelia Sullivan PharmD Unavailable Letty Rinaldi Unavailable Dalila Carson RN Unavailable [phone] Ekta Reynolds Unavailable Reason for Visit * Reason Comments Med Refill Encounter Details Date Type Department Care Team (Late st Contact Info) Description 02/15/2023 Refill [facility] MEDICINE [address] [place], [place] [phone] Radha Jamison DO [address] [place], [place] [phone] Chronic bilateral low back pain, unspecified whether [...] Medication Management [facility] MEDICINE [address] [place] [id number] Nelia Sullivan PharmD [address] [place] [address] documented as of this encounter Goals Goal [...] documented as of this encounter Care Teams Switch House Operator Relationship Specialty Start Date End Date Radha Jamison DO [address] [place] [id number] PCP - General Family Medicine 01/26/12 Abdias Murillo, PharmD [address] [place] [phone] Pharmacist Internal Medicine 03/21/22 08/30/23 Nelia Sullivan, Camron [address] [place] [address] Pharmacist Internal Medicine 08/31/23 Letty Rinadli 12/16/24 12/18/24 Dalila Carson, RN [address] [place] [phone] Registered Nurse Family Medicine 12/31/24 Ekta Reynolds 12/31/24 Laurel Monterroso Environmental Science TechnicianElectrical Prospecting Supervisor 02/20/25 Saige Aguilar 09/26/23 documented as of this encounter
== END 2025-01-06 05:51 | disposition home or self-care (01) ==
LOC: HO.PAT
PROVIDERS: Nurse Practitioner; PCP Family Medicine; Visit Provider Surgery Vascular Surgery
DX: Z01.818 Encounter for other preprocedural examination (principal); I65.22 Occlusion and stenosis of left carotid artery
CPT/HCPCS: 36415; 83036; 85610; 85730; 86850; 86900; 86901; J2404

== ENCOUNTER 2024-11-11 09:51 | Outpatient (AMB) | payer MEDICAID, SELFPAY ==
[2024-11-11 10:32] VITALS: BP 142/64; PULSE 69
--- NOTE | 2024-11-11 10:32 | MHC.OFFVIS ---
Vital Signs 11/11/24 10:32 Weight 141 lb 15.643 oz BP 142/64 H Blood Pressure Location Lt brachial Position Sitting Pulse 69 Pulse Source Monitor Intake Visit Reasons: 3 mth f/up/clear/augustine/carotid Accompanied by: Daughter Allergies latex (LATEX) Allergy (Severe, Verified 11/11/24 10:35) RASH naproxen (From NAPROSYN) Adverse Reaction (Intermediate, Verified 11/11/24 10:35) TACHYCARDIA Medication List - Last Reconciled 11/12/24 by Ghanshyam Daniel MD acetaminophen ER 650 mg PO Q8H albuterol sulfate 90 mcg/actuation (Ventolin HFA) 2 puffs inhalation Q6H PRN amitriptyline 50 mg PO BEDTIME apixaban (Eliquis) 5 mg PO BID aspirin (Adult Low Dose Aspirin) 81 mg PO DAILY atorvastatin (Lipitor) 80 mg PO BEDTIME blood sugar diagnostic (FreeStyle Lite Strips) As directed carvedilol (Coreg) 25 mg PO BID clopidogrel (Plavix) 75 mg PO DAILY docusate sodium 100 mg PO BID empagliflozin-metformin 12.5-1,000 mg (Synjardy) 1 tab PO BID escitalopram oxalate (Lexapro) 20 mg PO DAILY@1800 ezetimibe 10 mg PO DAILY ferrous sulfate 325 mg PO BID PRN fluticasone propionate 50 mcg/actuation 2 sprays intranasal DAILY gabapentin 600 mg PO BID hydralazine 25 mg See Protocol PO TID 30 days hydrochlorothiazide 50 mg PO DAILY insulin degludec (Tresiba FlexTouch U-100 insulin) 14 units subcut DAILY isosorbide mononitrate ER 30 mg PO DAILY lisinopril 40 mg PO DAILY loratadine 10 mg PO DAILY mirtazapine 45 mg PO BEDTIME mometasone 100 mcg/actuation (Asmanex HFA) 2 puffs inhalation BID multivitamin 1 tab PO DAILY nicotine 7 mg transdermal DAILY 30 days nicotine (polacrilex) 2 mg PO Q1-2H PRN nifedipine ER 90 mg PO BEDTIME omeprazole 40 mg PO BIDWM@0800,1700 pioglitazone 15 mg PO DAILY 30 days rosuvastatin 40 mg PO DAILY semaglutide (Ozempic) 0.5 mg subcut FR telmisartan 80 mg PO DAILY HPI Comments Details: 63-year-old female with h/o known CAD with 60-70% mid RCA stenosis which was FFR negative. In May when she was seen for perioperative cardiovascular risk assessment for fem-pop bypass surgery. She underwent surgery on 05/18/2020 and this was performed for a nonhealing left leg ulcer. She had left femoral to [id number] popliteal bypass with [place] Propaten. She had left popliteal thrombectomy and left femoral endarterectomy. She did well after that and in November she had repeat angiogram performed for claudication by Dr. Aragon. This showed occluded SFA with patent fem-pop bypass. There was ostial profunda femorals stenosis. There is a high-grade stenosis at the distal anastomosis site in the popliteal artery. Anterior tibial is patent. Posterior tibial artery was occluded mid calf. She had successful angioplasty of the distal anastomosis of fem-pop and profunda femoris. On follow-up with us she continued to had like pain. She has been taking medications regularly. Blood pressure control is okay right now. At home she is saying her blood pressures are very high at nighttime and she has reported blood pressures of 200s. 11/07/22: She returns for follow-up. She was found to have 70-90% right internal carotid artery stenosis on neck CTA performed in October 2022. She has seen Dr. Aragon and is being considered for surgery and is referred to us for perioperative cardiovascular risk assessment. She continues to smoke 1 pack per day. She has dyspnea on exertion. Also has non anginal left-sided pulsating chest discomfort which happens at rest. She has also noticed her blood pressure to be significantly elevated at times. She is return to office after 2 years. She had a moderate right coronary artery disease which was FFR negative previously. 04/29/2024: She is here for follow-up. She recently presented with NSTEMI and was taken for cardiac catheterization which showed multivessel disease. She was referred for coronary artery bypass surgery. Apparently her hemoglobin A1c was too high and she was told that she needs to bring it down before surgery. She is denying any chest discomfort but her blood pressure is elevated. She is saying that she ran out of all of her medications. I have advised her that she should be more mindful about her medications because she tends to get significant hypertension and ends up in the emergency department and should not run out of medicines and should be calling us earlier. We will send scripts for her. She is following with endocrinology regularly and I have advised her that she should work on her diabetes and as that improves she should undergo surgery which will with the best treatment for her. She has quite diffuse disease which will require long stents and with diabetes chances are that she may have InStent restenosis and may require reintervention in the future. 08/05/2024: She is here for follow-up. Denying any significant symptoms on follow-up. She has been smoking. She has lower extremity claudication symptoms. Blood pressure is. Her cholesterol is also elevated feeling that has been using the atorvastatin and ezetimibe off and on. Her daughter accompanied her in his saying that her mother does not want to undergo surgery and is there any percutaneous options. 11/11/24: Here for f/u. Continues to have uncontrolled diabtes. She is accompanied by her daughter. She is saying she does not want to undergo CABG. I have discussed with her multiple times that she has diffuse CAD and would be best served by CABG but she is adamantly refusing CABG. She also has severe carotid disease and is reporting that she will be undergoing CEA. [facility] Medical History (Updated 10/25/24 @ 00:00 by Arnold Mcgrath) Chronic anemia NSTEMI (non-ST elevated myocardial infarction) Mild aortic valve stenosis LORE (obstructive sleep apnea) Chronic low back pain Lumbar spinal stenosis HTN (hypertension) Vitamin D deficiency HLD (hyperlipidemia) T2DM (type 2 diabetes mellitus) H. pylori infection CAD (coronary artery disease) Cyst (solitary) of breast Kidney calculi Arthritis Asthma HTN (hypertension) Diabetes Surgical History (Updated 11/11/24 @ 11:58 by Kia Ma RN) History of right-sided carotid endarterectomy (~11/2022) S/P aortogram History of esophagogastroduodenoscopy (EGD) Hx of colonoscopy History of breast surgery (~1983) History of cardiac cath Family History Mother Diabetes Liver cancer Social History (Updated 11/11/24 @ 12:25 by Kia Ma, JOANN) Household Members: Family and Other Household Members Other:: friend and adult son Housing: Apartment Are you a primary rn home care to a significant other at home: No Do you presently have visiting nurse or other home services: No Alcohol intake: never Comment: refuses bed alarm Patient Tobacco Use Status: Current everyday Tobacco user Tobacco use type: Cigarette Years Smoked: 44 e-Cigarette/Vaping Use: Currently Using Second Hand Smoke Exposure: Yes Use of substances other than those prescribed or required for medical reasons: No Advance Directives Date on File: 09/26/23 Poor oral hygiene: Yes (upper denture, 2 fx teeth lower) service: No Current occupational status: unemployed and disabled Review of Systems Const Denies daytime sleepiness, Denies difficulty sleeping, Denies snoring, Denies stops breathing during sleep and Denies weakness Card Denies chest pain, Denies rapid heart rate, Denies irregular heart rhythm, Denies claudication, Denies leg edema, Denies lightheadedness, Denies palpitations, Denies dyspnea, Denies dyspnea on exertion, Denies orthopnea, Denies paroxysmal nocturnal dyspnea and Denies slow heart rate Resp Denies cough, Denies dyspnea, Denies dyspnea on exertion and Denies snoring GI Reports no additional complaints, Denies hematochezia, Denies change in stool character and Denies dyspepsia Musc Denies abnormal gait, Denies muscle weakness and Denies numbness Neuro Denies abnormal gait, Denies numbness and Denies weakness Endo Denies palpitations Physical Exam Vital Signs: Last Vital Signs Pulse 69 11/11/24 10:32 BP 142/64 H 11/11/24 10:32 GENERAL APPEARANCE: in no acute distress, pleasant. NECK: no jugular venous distention. Right carotid endarterectomy scar. Left carotid bruit. SKIN: no suspicious lesions, warm and dry. HEART: no murmurs, regular rate and rhythm. LUNGS: clear to auscultation bilaterally. ABDOMEN: soft, nontender. EXTREMITIES: no edema. PERIPHERAL PULSES: equal. NEUROLOGIC: No gross deficits, AAO X 3 Office Procedures EKG Details: Sinus rhythm 69 beats per minute, normal axis, nonspecific T-wave changes, left ventricular hypertrophy, QTC 458 milliseconds. [id number], Complete Assessment & Plan Assessment & Plan (1) HTN (hypertension): Code(s): I10 - Essential (primary) hypertension Category: Medical Qualifiers: Hypertension type: resistant hypertension Qualified Code(s): I1A.0 - Resistant hypertension (2) Stable angina: Code(s): I20.8 - Other forms of angina pectoris Category: Medical (3) CAD (coronary artery disease): Comment: cath 2016, med managed Code(s): I25.10 - Atherosclerotic heart disease of [place] coronary artery without angina pectoris Category: Medical (4) PVD (peripheral vascular disease): Code(s): I73.9 - Peripheral vascular disease, unspecified Category: Medical (5) Nonadherence to medication: Code(s): Z91.148 - Patient's other noncompliance with medication regimen for other reason Category: Medical Plan [age] year female who is a vasculopath and has diabetes who has uncontrolled hypertension, uncontrolled hyperlipidemia and diabetes. She is an active smoker. Previous lower extremity bypass surgery with ongoing claudication. She has multivessel disease which is diffuse. She is refusing surgery. She is moderate to high risk for perioperative complications. Once done with carotid surgery, would consider PCI to RCA. She may be a candidate for DCB to LCx and LAD. f/u in 3 months. Thank you for allowing me to participate in the care of your patient. Please feel free to contact me if you have any questions. Coding Level of Care Code Est Pt Level 5 (72688) Diagnoses Resistant hypertension I1A.0 Hypertension type: resistant hypertension Stable angina I20.8 CAD (coronary artery disease) I25.10 PVD (peripheral vascular disease) I73.9 Nonadherence to medication Z91.148 CPT Codes EKG - CPT: 55010-[id number], Complete ([id number])
--- OUTSIDE RECORDS SUMMARY | 2024-11-11 10:48 | XMS_ITS | Encounter Summary ---
Author Organization [employer] Address [address] [facility] 7t [place] [address] Care Team Providers Care Roll Plugger Name Role Phone Radha Jamison DO Primary Care Provider [phone] Nelia Sullivan PharmD Unavailable [phone] Reason for Visit * Reason Comments Med Refill Encounter Details Date Type Department Care Team ([facility] st Contact Info) Description 03/19/2024 Refill [facility] [address] [place] [address] Radha Jamison DO [address] [place] [address] Chronic bilateral low back pain, unspecified whether [...] the past 12 months, has t he Robert Applebaum MD, gas, oil or water [employer] threatened to shut off services in your [...] Sex Female 10:16 AM EDT Gender Identity Female 11/05/2024 12:34 PM EDT Sexual Orientation Straight 12/13/2021 10 :16 AM EDT documented as of this encounter Plan of Treatment Upcoming Encounters Date Type Department Care Team (Late st Contact Info) Description 11/14/2024 1:30 PM EDT Office Visit [facility] [address] [place] [address] Jered Aguilera MD [address] [place] [address] 12/06/2024 10:30 AM EDT Medication Management [facility] [address] [place] [address] Nelia Sullivan, PharmD [address] [place] [address] 03/13/2025 9:30 AM EST Office Visit [facility] OPTOMETRY [address] [place] [address] Radha Taylor, OD [address] [place] [address] documented as of this encounter Goals Goal Patient Goal Type Associated Problems Recent Progress Patient-Stated? Author Record your blood pressure once per day Blood Pressure No Nelia Sullivan, PharmD Blood Pressure < 140/90 Blood Pressure 138/64(2024 11:12 AM EDT) No Nelia Sullivan, PharmD Smoking cessation General No PuiaFeliceNelia, PharmD Patient will adhere to medication regimen General No Yazmin Sullivansa, PharmD Hemoglobin A1c < 7 Result Component 10.1(09/04/19 4:57 PM EDT) No DellogAbdias cotto PharmD Record your blood sugar as directed [...] documented as of this encounter Care Teams Roll Plugger Relationship Specialty Start Date End Date Radha Jamison DO [address] [place] [address] PCP - General Family Medicine 01/26/12 Nelia Sullivan, PharmD [address] [place] [address] Pharmacist Internal Medicine 08/31/23 Laurel Monterroso Carpet MechanicMunicipal Services Manager 10/27/22 Saige Aguilar 09/26/23 documented as of this encounter
--- OUTSIDE RECORDS SUMMARY | 2024-11-11 10:48 | XMS_ITS | Encounter Summary ---
Author Organization [employer] Address [address] [facility] 7t [place] [address] Care Team Providers Care Leather Roller Name Role Phone Radha Jamison DO Primary Care Provider [phone] Abdias Murillo PharmD Unavailable Unavail able Nelia Sullivan PharmD Unavailable [phone] Reason for Visit * Reason Comments Med Refill Encounter Details Date Type Department Care Team (Late st Contact Info) Description 04/14/2023 Refill [facility] [address] [place], [place] [phone] Radha Jamison DO [address] [place], [place] [phone] Type 2 diabetes mellitus with hyperglycemia, with long-term current use of insulin ([facility]) Social History Tobacco Use Types Packs/Day Years [...] Description 11/14/2024 1:30 PM EDT Office Visit [facility] [address] [place] [address] Jered Aguilera MD [address] [place] [address] 12/06/2024 10:30 AM EDT Medication Management [facility] [address] [place] [address] Nelia Sullivan, PharmD [address] [place] [address] 03/13/2025 9:30 AM EST Office Visit [facility] [address] [place] [address] Radha Taylor, OD [address] [place] [address] documented as of this encounter Goals Goal Patient Goal Type Associated Problems Recent Progress Patient-Stated? Author Hemoglobin A1c < 7 Result Component 10.1( 4:57 PM EDT) No Abdias Murillo, PharmD documented as of this encounter Visit Diagnoses Diagnosis Type 2 diabetes mellitus with hyperglycemia, with long-term current use of insulin (HCC) documented in this encounter Additional Health Concerns Assessment Noted Time PHQ-9 Depression Total Score: 4 11/09/19 23 11:27 AM EDT documented as of this encounter Care Teams Leather Roller Relationship Specialty Start Date End Date Radha Jamison DO [address] [place] [address] PCP - General Family Medicine 01/26/12 Abdias Murillo, KeithD [address] [place] [address] Pharmacist Internal Medicine 03/21/22 08/30/23 Nelia Sullivan PharmD [address] [place] [address] Pharmacist Internal Medicine 08/31/23 Laurel Monterroso Machine Leather TrimmerAntique Dealer 10/27/22 Saige Aguilar 09/26/23 documented as of this encounter
--- OUTSIDE RECORDS SUMMARY | 2024-11-11 10:48 | XMS_ITS | Encounter Summary ---
Author Organization [employer] Address [address] [facility] 7t [place] [address] Care Team Providers Care Neonatal Icu Coordinator Name Role Phone Radha Jamison DO Primary Care Provider [phone] Nelia Sullivan PharmD Unavailable [phone] Reason for Visit * Reason Comments Med Refill Encounter Details Date Type Department Care Team ([facility] Contact Info) Description 01/06/2024 Refill [facility] [address] [place], [place] [phone] Radha Jamison DO [address] [place] [address] Depression, unspecified depression type; Essential (primary) hypertension [...] the past 12 months, has t he [employer], gas, oil or water [employer] threatened to shut off services in your [...] Description 11/14/2024 1:30 PM EDT Office Visit [facility] [address] [place] [address] Jered Aguilera MD [address] [place] [address] 12/06/2024 10:30 AM EDT Medication Management [facility] [address] [place] [address] Nelia Sullivan, PharmD [address] [place] [address] 03/13/2025 9:30 AM EST Office Visit [facility] OPTOMETRY [address] [place] [address] Radha Taylor, OD [address] [place] [address] documented as of this encounter Goals Goal [...] documented as of this encounter Care Teams Neonatal Icu Coordinator Relationship Specialty Start Date End Date Radha Jamison DO [address] [place] [address] PCP - General Family Medicine 01/26/12 Nelia Sullivan, PharmD [address] [place] [address] Pharmacist Internal Medicine 08/31/23 Laurel Monterroso Naval ArchitectDrilling Fluids Specialist 10/27/22 Saige Aguilar 09/26/23 documented as of this encounter
--- OUTSIDE RECORDS SUMMARY | 2024-11-11 10:48 | XMS_ITS | Encounter Summary ---
Author Organization [employer] Address [address] [facility] 7t [place] [address] Care Team Providers Care Md Urologist Name Role Phone Radha Jamison DO Primary Care Provider [phone] Nelia Sullivan PharmD Unavailable [phone] Reason for Visit * Reason Comments Med Refill Encounter Details Date Type Department Care Team ([facility] Contact Info) Description 05/07/2024 Refill [facility] [address] [place], [place] [phone] Radha Jamison DO [address] [place] [address] Social History Tobacco Use Types Packs/Day Years [...] Description 11/14/2024 1:30 PM EDT Office Visit [facility] [address] [place] [address] Jered Aguilera MD [address] [place] [address] 12/06/2024 10:30 AM EDT Medication Management [facility] [address] [place] [address] Nelia Sullivan, PharmD [address] [place] [address] 03/13/2025 9:30 AM EST Office Visit [facility] OPTOMETRY [address] [place] [address] Radha Taylor, OD [address] [place] [address] documented as of this encounter Goals Goal [...] 10.1(09/04/19 4:57 PM EDT) No Abdias Murillo, Camron Record your blood [...] documented as of this encounter Care Teams Md Urologist Relationship Specialty Start Date End Date Radha Jamison DO [address] [place] [address] PCP - General Family Medicine 01/26/12 Nelia Sullivan PharmD [address] [place] [address] Pharmacist Internal Medicine 08/31/23 Laurel Monterroso Slp TeacherBlast Furnace Checker 10/27/22 Saige Aguilar 09/26/23 documented as of this encounter
--- OUTSIDE RECORDS SUMMARY | 2024-11-11 10:48 | XMS_ITS | Encounter Summary ---
Author Organization [employer] Address 75 [facility] 7t [place] [address] Care Team Providers Care Electronic Lab Technician Name Role Phone Radha Jamison DO Primary Care Provider +1- [phone] Nelia Sullivan PharmD Unavailable [phone] Reason for Visit * Reason Onset Date Comments Nurse Triage 10/07/2024 Encounter Details Date Type Department Care Team ([facility] st Contact Info) Description 10/07/2024 Telephone [facility] MEDICINE [address] [place] [address] Radha Jamison DO [address] [place] [address] Nurse Triage Social History Tobacco Use Types [...] the past 12 months, has t he [employer], gas, oil or water company threatened to [...] PM EDT Triage call [place] [facility] [place] [id number], Theo Pt reports swelling of bilateral lower extremities [...] advised to come to the [facility]IC at [facility] to be seen by provider open till 8pm today, , wed. Open till 4pm th, fri and open [...] caller accepted this outcome. Contact pt at [phone] documented in this encounter Plan of Treatment Upcoming Encounters Date Type Department Care Team (Late st Contact Info) Description 11/14/2024 1:30 PM EDT Office Visit [facility] [address] [place] [address] Jered Aguilera MD [address] [place] [address] 12/06/2024 10:30 AM EDT Medication Management [facility] [address] [place] [address] Nelia Sullivan, PharmD [address] [place] [address] 03/13/2025 9:30 AM EST Office Visit [facility] OPTOMETRY [address] [place] [address] Radha Taylor OD [address] [place] [address] documented as of this encounter Goals Goal Patient Goal Type Associated Problems Recent Progress Patient-Stated? Author Record your blood pressure once per day Blood Pressure No PuYazmin cortessa, PharmD Blood Pressure < 140/90 Blood Pressure 138/64(2024 11:12 AM EDT) No Nelia Sullivan, PharmAdrian Smoking cessation General No Nelia Sullivan, PharmD [...] as of this encounter Care Teams Electronic Lab Technician Relationship Specialty Start Date End Date Radha Jamison DO [address] [place] [address] PCP - General Family Medicine 01/26/12 Nelia Sullivan PharmD [address] [place] [address] Pharmacist Internal Medicine 08/31/23 Laurel Monterroso Liability Claims ManagerBrand Advocate 10/27/22 Saige Aguilar 09/26/23 documented as of this encounter
--- OUTSIDE RECORDS SUMMARY | 2024-11-11 10:48 | XMS_ITS | Encounter Summary ---
Author Organization [employer] Address 75 [facility] 7t [place] [address] Care Team Providers Care Cigar Bander Hand Name Role Phone Radha Jamison DO Primary Care Provider +1- [phone] Nelia Sullivan PharmD Unavailable [phone] Reason for Visit * Reason Comments Med Refill Encounter Details Date Type Department Care Team ([facility] st Contact Info) Description 05/17/2024 Refill [facility] 230 [place] [address] Radha Jamison DO [address] [place] [address] Chronic bilateral low back pain, unspecified whether [...] the past 12 months, has t he [employer], gas, oil or water [employer] threatened to shut off services in your [...] Description 11/14/2024 1:30 PM EDT Office Visit [facility] [address] [place] [address] Jered Aguilera MD [address] [place] [address] 12/06/2024 10:30 AM EDT Medication Management [facility] [address] [place] [address] Nelia Sullivan, PharmD [address] [place] [address] 03/13/2025 9:30 AM EST Office Visit [facility] OPTOMETRY [address] [place] [address] Radha Taylor, OD [address] [place] [address] documented as of this encounter Goals Goal [...] documented as of this encounter Care Teams Cigar Bander Hand Relationship Specialty Start Date End Date Radha Jamison DO [address] [place] [address] PCP - General Family Medicine 01/26/12 Nelia Sullivan, PharmD [address] [place] [address] Pharmacist Internal Medicine 08/31/23 Laurel Monterroso Android Ui DeveloperFolder Tier 10/27/22 Saige Aguilar 09/26/23 documented as of this encounter
--- OUTSIDE RECORDS SUMMARY | 2024-11-11 10:48 | XMS_ITS | Encounter Summary ---
Author Organization [employer] Address 75 [facility] 7t [place] [address] Care Team Providers Care Head Of Visual Merchandising Name Role Phone Radha Jamison DO Primary Care Provider +1- [phone] Nelia Sullivan PharmD Unavailable [phone] Reason for Visit * Reason Onset Date Comments Med Refill 03/06/2024 Encounter Details Date Type Department Care Team (Late st Contact Info) Description 03/06/[address] [facility]INE [address] [place] [address] Radha Jamison DO 230 [place], [place] [phone] Med Refill Social History Tobacco Use Types [...] the past 12 months, has t he [employer], gas, oil or water [employer] threatened to shut off services in your [...] immediate release tablet To be sent to: [facility] pharmacy documented in this encounter Plan of Treatment Upcoming Encounters Date Type Department Care Team (Late st Contact Info) Description 11/14/2024 1:30 PM EDT Office Visit [facility] [address] [place] [address] Jered Aguilera MD [address] [place] [address] 12/06/2024 10:30 AM EDT Medication Management [facility] [address] [place] [address] Nelia Sullivan, PharmD 230 [place] [address] 03/13/2025 9:30 AM EST Office Visit [facility] OPTOMETRY [address] [place] [address] Radha Taylor, OD [address] [place] [address] documented as of this encounter Goals Goal [...] as of this encounter Care Teams Head Of Visual Merchandising Relationship Specialty Start Date End Date Radha Jamison DO 230 [place] [address] PCP - General Family Medicine 01/26/12 Nelia Sullivan PharmD [address] [place] [address] Pharmacist Internal Medicine 08/31/23 Laurel Monterroso Insole CementerSales Vendor 10/27/22 Saige Aguilar 09/26/23 documented as of this encounter
--- OUTSIDE RECORDS SUMMARY | 2024-11-11 10:48 | XMS_ITS | Encounter Summary ---
Author Organization [employer] Address 75 [facility] 7t [place] [address] Care Team Providers Care Cat Driver Name Role Phone Radha Jamison DO Primary Care Provider +1- [phone] Nelia Sullivan PharmD Unavailable [phone] Reason for Visit * Reason Comments Med Refill Encounter Details Date Type Department Care Team ([facility] Contact Info) Description 12/28/2023 Refill [facility] [address] [place] [address] Radha Jamison DO 230 [place] [address] Chronic bilateral low back pain, unspecified whether [...] the past 12 months, has t he [employer], gas, oil or water [employer] threatened to shut off services in your [...] Description 11/14/2024 1:30 PM EDT Office Visit [facility] [address] [place] [address] Jered Aguilera MD [address] [place] [address] 12/06/2024 10:30 AM EDT Medication Management [facility] [address] [place] [address] Nelia Sullivan, PharmD [address] [place] [address] 03/13/2025 9:30 AM EST Office Visit [facility] OPTOMETRY [address] [place] [address] Radha Taylor, OD [address] [place] [address] documented as of this encounter Goals Goal [...] documented as of this encounter Care Teams Cat Driver Relationship Specialty Start Date End Date Radha Jamison DO [address] [place] [address] PCP - General Family Medicine 01/26/12 Nelia Sullivan, PharmD [address] [place] [address] Pharmacist Internal Medicine 08/31/23 Laurel Monterroso Presser FirstHead Mixer 10/27/22 Saige Aguilar 09/26/23 documented as of this encounter
--- OUTSIDE RECORDS SUMMARY | 2024-11-11 10:48 | XMS_ITS | Encounter Summary ---
Author Organization [employer] Address 75 [facility] 7t [place] [address] Care Team Providers Care Medical Records Receptionist Name Role Phone Radha Jamison DO Primary Care Provider [phone]- [phone] Nelia Sullivan PharmD Unavailable [phone] Reason for Visit * Reason Comments Med Refill Encounter Details Date Type Department Care Team ([facility] st Contact Info) Description 02/29/2024 Refill [facility] MEDICINE 230 [place], [place] [phone] Radha Jamison DO [address] [place] [address] Chronic bilateral low back pain, unspecified whether [...] the past 12 months, has t he [employer], gas, oil or water [employer] threatened to shut off services in your [...] until seen by PCP or seen by GYROSCOPIC INSTRUMENT MECHANIC. Scheduled GYROSCOPIC INSTRUMENT MECHANIC 03/05/24. documented in this encounter Plan of Treatment Upcoming Encounters Date Type Department Care Team (Late st Contact Info) Description 11/14/2024 1:30 PM EDT Office Visit [facility] MED[facility]INE [address] [place] [address] Jered Aguilera MD [address] [place] [address] 12/06/2024 10:30 AM EDT Medication Management [facility] [address] [place] [address] Nelia Sullivan, PharmD [address] [place] [address] 03/13/2025 9:30 AM EST Office Visit [facility] OPTOMETRY [address] [place] [address] Radha Taylor, OD [address] [place] [address] documented as of this encounter Goals Goal Patient Goal Type Associated Problems Recent Progress Patient-Stated? Author Record your blood pressure once per day Blood Pressure No Nelia Sullivan, PharmD Blood Pressure < 140/90 Blood Pressure 138/64(2024 11:12 AM EDT) No Yazmin Sullivansa, PharmD Smoking cessation General No AnaiiaYazminsa, PharmD [...] documented as of this encounter Care Teams Medical Records Receptionist Relationship Specialty Start Date End Date Radha Jamison DO [address] [place] [address] PCP - General Family Medicine 01/26/12 Nelia Sullivan, PharmD [address] [place] [address] Pharmacist Internal Medicine 08/31/23 Laurel Monterroso Human Resources Training ManagerDirt Bike Racer 10/27/22 Saige Aguilar 8/13/24 documented as of this encounter
--- OUTSIDE RECORDS SUMMARY | 2024-11-11 10:48 | XMS_ITS | Encounter Summary ---
Author Organization [employer] Address 75 [facility] 7t [place] [address] Care Team Providers Care Heat Engineering Teacher Name Role Phone Radha Jamison DO Primary Care Provider [phone]- [phone] Abdias Murillo PharmD Unavailable Unavail able Nelia Sullivan PharmD Unavailable [phone] Reason for Visit * Reason Comments Med Refill Encounter Details Date Type Department Care Team (Late st Contact Info) Description 04/14/2023 Refill [facility]INE [address] [place], [place] [phone] Radha Jamison DO 230 [place], [place] [phone] Type 2 diabetes mellitus with hyperglycemia, with long-term current use of insulin ([facility]) Social History Tobacco Use Types [...] Description 11/14/2024 1:30 PM EDT Office Visit [facility] MEDICINE [address] [place] [address] Jered Aguilera MD [address] [place] [address] 12/06/2024 10:30 AM EDT Medication Management [facility] MEDICINE [address] [place] [address] Nelia Sullivan, PharmD [address] [place] [address] 03/13/2025 9:30 AM EST Office Visit [facility] OPTOMETRY [address] [place] [address] Radha Taylor, OD [address] [place] [address] documented as of this encounter Goals Goal [...] documented as of this encounter Care Teams Heat Engineering Teacher Relationship Specialty Start Date End Date Radha Jamison DO [address] [place] [address] PCP - General Family Medicine 01/26/12 Abdias Murillo, KeithD [address] [place] [address] Pharmacist Internal Medicine 03/21/22 08/30/23 Nelia Sullivan PharmD [address] [place] [address] Pharmacist Internal Medicine 08/31/23 Laurel Monterroso Outboard Motorboat OperatorDigital Marketing Assistant 10/27/22 Saige Aguilar 09/26/23 documented as of this encounter
--- OUTSIDE RECORDS SUMMARY | 2024-11-11 10:48 | XMS_ITS | Encounter Summary ---
Author Organization [employer] Address 75 [facility] 7t [place] [address] Care Team Providers Care Talent Consultant Name Role Phone Radha Jamison DO Primary Care Provider +1- [phone] Nelia Sullivan PharmD Unavailable [phone] Reason for Visit * Reason Comments Med Refill Encounter Details Date Type Department Care Team ([facility] Contact Info) Description 03/05/2024 Telephone [facility] MEDICINE [address] [place], [place] [phone] Radha Jamison DO [address] [place] [address] Med Refill Social History Tobacco Use Types [...] Description 11/14/2024 1:30 PM EDT Office Visit [facility] MEDICINE [address] [place] [address] Jered Aguilera MD [address] [place] [address] 12/06/2024 10:30 AM EDT Medication Management [facility] MED[facility]INE [address] [place] [address] Nelia Sullivan, PharmD [address] [place] [address] 03/13/2025 9:30 AM EST Office Visit [facility] OPTOMETRY [address] [place] [address] Radha Taylor, OD [address] [place] [address] documented as of this encounter Goals Goal [...] documented as of this encounter Care Teams Talent Consultant Relationship Specialty Start Date End Date Radha Jamison DO [address] [place] [address] PCP - General Family Medicine 01/26/12 Nelia Sullivan PharmD [address] [place] [address] Pharmacist Internal Medicine 08/31/23 Laurel Monterroso Fire Department Battalion ChiefTraveling Passenger Agent 10/27/22 Saige Aguilar 09/26/23 documented as of this encounter
--- OUTSIDE RECORDS SUMMARY | 2024-11-11 10:48 | XMS_ITS | Encounter Summary ---
Author Organization [employer] Address 75 [facility] 7t [place] [address] Care Team Providers Care Office Clerk Name Role Phone Radha Jamison DO Primary Care Provider [phone]- [phone] Abdias Murillo PharmD Unavailable Unavail able Nelia Sullivan PharmD Unavailable [phone] Reason for Visit * Reason Onset Date Comments uber 05/08/2023 Encounter Details Date Type Department Care Team ([facility] st Contact Info) Description 05/08/2023 Telephone [facility] MEDICINE [address] [place] [address] Radha Jamison DO [address] [place] [address] uber Social History Tobacco Use Types Packs/Day [...] / denial letter via mail. PT-1 Request [id number] Pending . [facility] [address] [place] [address] Machine Clerical Verifier noticed pt has pending referrals. Machine Clerical Verifier has added a note to each to add PT1 for referred tooffice. * Telephone Encounter - Ginna Stephen RN - 05/10/2023 9:31 AM EDT Uber booked for tomorrow 8:45am. TC placed to pt. And made pt. Aware. Pt. Also reports PT-1 expiredand would like it renewed for next time, to [facility] * Telephone Encounter - Ciera Carson - 05/10/2023 9:07 AM EDT Tc from pt calling in regards to message above. Pt also received a call, film writer does not see any documentation. Please contact pt at [phone] * Telephone Encounter - Ciera Carson - 05/08/2023 12:54 PM EDT Tc from pt states will need uber transportation for 05/10 OV with provider. Please contact pt at [phone] documented in this encounter Plan of Treatment Upcoming Encounters Date Type Department Care Team (Late st Contact Info) Description 11/14/2024 1:30 PM EDT Office Visit [facility]INE [address] [place] [address] Jered Aguilera MD 230 [place] [address] 12/06/2024 10:30 AM EDT Medication Management [facility] [address] [place] [address] Nelia Sullivan PharmD 230 [place] [address] 03/13/2025 9:30 AM EST Office Visit [facility] OPTOMETRY [address] [place] [address] Radha Taylor, OD [address] [place] [address] documented as of this encounter Goals Goal [...] documented as of this encounter Care Teams Office Clerk Relationship Specialty Start Date End Date Radha Jaimson DO [address] [place] [address] PCP - General Family Medicine 01/26/12 Abdias Murillo, PharmD [address] [place] [address] Pharmacist Internal Medicine 03/21/22 08/30/23 Nelia Sullivan, PharmD 230 [facility] [place] [address] Pharmacist Internal Medicine 08/31/23 Laurel Monterroso Fabric WorkerSystem Operation Superintendent 10/27/22 Saige Aguilar 09/26/23 documented as of this encounter
--- OUTSIDE RECORDS SUMMARY | 2024-11-11 10:48 | XMS_ITS | Encounter Summary ---
Author Organization [employer] Address 75 [facility] 7t [place] [address] Care Team Providers Care Associate Counsel Name Role Phone Radha Jamison DO Primary Care Provider +1- [phone] Nelia Sullivan PharmD Unavailable [phone] Reason for Visit * Reason Onset Date Comments Returning Call 01/17/2024 Hospital Follow-up 01/17/2024 Encounter Details Date Type Department Care Team ([facility] st Contact Info) Description 01/17/[address] [facility]INE 230 [place] [address] Radha Jamison DO 230 [place] [address] Returning Call ; Hospital Follow-up Social History [...] t he electric, gas, oil or water [employer] threatened to shut off services in your [...] Description 11/14/2024 1:30 PM EDT Office Visit [facility]INE [address] [place] [address] Jered Aguilera MD [address] [place] [address] 12/06/2024 10:30 AM EDT Medication Management [facility] [address] [place] [phone] Puia, Nelia, PharmD 230 [place] [address] 03/13/2025 9:30 AM EST Office Visit [facility] OPTOMETRY [address] [place] [address] TarRadha bang, OD [address] [place] [address] documented as of this encounter Goals Goal Patient Goal Type Associated Problems Recent Progress Patient-Stated? Author Record your blood pressure once per day Blood Pressure No Puia, Nelia, PharmD Blood Pressure < 140/90 Blood Pressure 138/64(2024 11:12 AM EDT) No Puia, Nelia, PharmD Smoking cessation General No Puia, Nelia, PharmD Patient will adhere to medication regimen General No Puia, Nelia, PharmD Hemoglobin A1c < 7 Result Component 10.1(09/04/19 25 4:57 PM EDT) No DellogAbdias cotto, PharmD [...] documented as of this encounter Care Teams Associate Counsel Relationship Specialty Start Date End Date Radha Jamison DO 230 [place] [address] PCP - General Family Medicine 01/26/12 Puia, Nelia, PharmD 230 [place] [address] Pharmacist Internal Medicine 08/31/23 Laurel Monterroso Livestock SpeculatorHydroelectric Plant Maintainer 10/27/22 Saige [facility] 09/26/23 documented as of this encounter
--- OUTSIDE RECORDS SUMMARY | 2024-11-11 10:49 | XMS_ITS | Encounter Summary ---
Author Organization [employer] Address 75 [facility] 7t [place] [address] Care Team Providers Care Electric Spot Welder Name Role Phone Radha Jamison DO Primary Care Provider Abdias Murillo PharmD Unavailable Unavail able Nelia Sullivan PharmD Unavailable [phone] Reason for Visit * Reason Onset Date Comments Med Refill 10/24/2022 Encounter Details Date Type Department Care Team (Late st Contact Info) Description 10/24/2022 Telephone [facility] MEDICINE [address] [place] [address] Radha Jamison DO [address] [place] [address] Med Refill Social History Tobacco Use Types [...] soon. Medication not due for refill until 9/19/23. Will forward request to PCPon 10/28/22. * Telephone Encounter - La Ekta - 10/24/2022 11:33 AM EDT Tc from pt requesting med refill for medication oxyCODONE (Roxicodone) 5 MG immediate release tablet. documented in this encounter Plan of Treatment Upcoming Encounters Date Type Department Care Team (Late st Contact Info) Description 11/14/2024 1:30 PM EDT Office Visit [facility] MEDICINE [address] [place] [address] Jered Aguilera MD [address] [place] [address] 12/06/2024 10:30 AM EDT Medication Management [facility] MEDICINE [address] [place] [address] Nelia Sullivan, PharmD [address] [place] [address] 03/13/2025 9:30 AM EST Office Visit [facility] OPTOMETRY [address] [place] [address] TarkaRadha, OD [address] [place] [address] documented as of this encounter Goals Goal [...] as of this encounter Care Teams Electric Spot Welder Relationship Specialty Start Date End Date Radha Jamison DO [address] [place] [address] PCP - General Family Medicine 01/26/12 Abdias Murillo, PharmD [address] [place] [address] Pharmacist Internal Medicine 03/21/22 08/30/23 Nelia Sullivan, KeithD [address] [place] [address] Pharmacist Internal Medicine 08/31/23 Laurel Monterroso Battery MechanicAuto Accessories Installer 10/27/22 Saige Aguilar 09/26/23 documented as of this encounter
--- OUTSIDE RECORDS SUMMARY | 2024-11-11 10:49 | XMS_ITS | Encounter Summary ---
Author Organization [employer] Address 75 [facility] [address] [place] [address] Care Team Providers Care Sr. Payroll Processor Name Role Phone Radha Jamison DO Primary Care Provider Abdias Murillo PharmD Unavailable Unavail able Nelia Sullivan PharmD Unavailable [phone] Reason for Visit * Reason Comments Med Refill Encounter Details Date Type Department Care Team (Late st Contact Info) Description 11/10/2022 Refill [facility] MED[facility]INE [address] [place] [address] Radha Jamison DO [address] [place] [address] Chronic gastroesophageal reflux disease Social History Tobacco [...] [facility] [address] [place] [address] Jered Aguilera MD [address] [place] [address] 12/06/2024 10:30 AM EDT Medication Management [facility] [address] [place] [address] Nelia Sullivan PharmD [address] [place] [address] 03/13/2025 9:30 AM EST Office Visit [facility] OPTOMETRY [address] [place] [address] Radha Taylor, OD [address] [place] [address] documented as of this encounter Goals Goal [...] documented as of this encounter Care Teams Sr. Payroll Processor Relationship Specialty Start Date End Date Radha Jamison DO [address] [place] [address] PCP - General Family Medicine 01/26/12 Abdias Murillo, PharmD [address] [place] [address] Pharmacist Internal Medicine 03/21/22 08/30/23 Nelia Sullivan, PharmD [address] [place] [address] Pharmacist Internal Medicine 08/31/23 Laurel Monterroso Cook ShipStudio Engineer 10/27/22 Saige Aguilar 09/26/23 documented as of this encounter
--- OUTSIDE RECORDS SUMMARY | 2024-11-11 10:49 | XMS_ITS | Encounter Summary ---
Author Organization [employer] Address [address] [facility] 7[address] [place] [address] Care Team Providers Care Barrel Brander Name Role Phone Radha Jamison DO Primary Care Provider Abdias Murillo PharmD Unavailable Unavail able Nelia Sullivan PharmD Unavailable [phone] Reason for Visit * Reason Comments Med Refill Encounter Details Date Type Department Care Team (Late st Contact Info) Description 10/25/2022 Refill [facility] MEDICINE [address] [place] [address] Radha Jamison DO [address] [place] [address] Chronic bilateral low back pain, unspecified whether [...] Department Care Team (Late Contact Info) Description 11/14/2024 1:30 PM EDT Office Visit [facility] MEDICINE [address] [place] [address] Jered Aguilera MD [address] [place] [address] 12/06/2024 10:30 AM EDT Medication Management [facility] MEDICINE [address] [place] [address] Nelia Sullivan PharmD [address] [place] [address] 03/13/2025 9:30 AM EST Office Visit [facility] OPTOMETRY [address] [place] [address] Radha Taylor, OD [address] [place] [address] documented as of this encounter Goals Goal [...] documented as of this encounter Care Teams Barrel Brander Relationship Specialty Start Date End Date Radha Jamison DO [address] [place] [address] PCP - General Family Medicine 01/26/12 Abdias Murillo, PharmD [address] [place] [address] Pharmacist Internal Medicine 03/21/22 08/30/23 Nelia Sullivan PharmD [address] [place] [address] Pharmacist Internal Medicine 08/31/23 Laurel Monterroso Or Nurse ManagerAccount Development Manager 10/27/22 Saige Aguilar 09/26/23 documented as of this encounter
--- OUTSIDE RECORDS SUMMARY | 2024-11-11 10:49 | XMS_ITS | Encounter Summary ---
Author Organization [employer] Address [address] [facility] 7t [place] [address] Care Team Providers Care Transit Worker Name Role Phone Radha Jamison DO Primary Care Provider [phone] Abdias Murillo PharmD Unavailable Unavail able Nelia Sullivan PharmD Unavailable [phone] Reason for Visit * Reason Comments Med Refill Encounter Details Date Type Department Care Team (Late st Contact Info) Description 11/08/2022 Refill [facility] MEDICINE [address] [place] [address] Radha Jamison DO [address] [place] [address] Social History Tobacco Use Types Packs/Day Years [...] Description 11/14/2024 1:30 PM EDT Office Visit [facility] MEDICINE [address] [place] [address] Jered Aguilera MD [address] [place] [address] 12/06/2024 10:30 AM EDT Medication Management [facility] MEDICINE [address] [place] [address] Nelia Sullivan PharmD [address] [place] [address] 03/13/2025 9:30 AM EST Office Visit [facility] OPTOMETRY [address] [place] [address] Radha Taylor OD [address] [place] [address] documented as of this encounter Goals Goal [...] documented as of this encounter Care Teams Transit Worker Relationship Specialty Start Date End Date Radha Jamison DO [address] [place] [address] PCP - General Family Medicine 01/26/12 Abdias Murillo, PharmD [address] [place] [address] Pharmacist Internal Medicine 03/21/22 08/30/23 Nelia Sullivan, PharmD [address] [place] [address] Pharmacist Internal Medicine 08/31/23 Laurel Monterroso Fuse SpoolerEcho Vascular Technologist 10/27/22 Saige Aguilar 09/26/23 documented as of this encounter
--- OUTSIDE RECORDS SUMMARY | 2024-11-11 10:49 | XMS_ITS | Encounter Summary ---
Author Organization [employer] Address [address] [facility] 7t [place] [address] Care Team Providers Care Soap Inspector Name Role Phone Radha Jamison DO Primary Care Provider [phone] Abdias Murillo PharmD Unavailable Unavail able Nelia Sullivan PharmD Unavailable Encounter Details Date Type Department Care Team ([facility] st Contact Info) Description 10/10/2022 Telephone [facility] MEDICINE [address] [place] [address] Radha Jamison DO [address] [place] [address] Social History Tobacco Use Types Packs/Day Years [...] Miscellaneous Notes * Telephone Encounter - La Dash - 10/10/2022 12:39 PM EDT Tc from [...] Description 11/14/2024 1:30 PM EDT Office Visit [facility] MEDICINE [address] [place] [address] Jered Aguilera MD [address] [place] [address] 12/06/2024 10:30 AM EDT Medication Management [facility] MEDICINE [address] [place] [address] Nelia Sullivan PharmD [address] [place] [address] 03/13/2025 9:30 AM EST Office Visit [facility] OPTOMETRY [address] [place] [address] Radha Taylor, OD [address] [place] [address] documented as of this encounter Goals Goal [...] documented as of this encounter Care Teams Soap Inspector Relationship Specialty Start Date End Date Rdaha Jamison DO [address] [place] [address] PCP - General Family Medicine 01/26/12 Abdias Murillo, PharmD [address] [place] [address] Pharmacist Internal Medicine 03/21/22 08/30/23 Nelia Sullivan PharmD [address] [place] [address] Pharmacist Internal Medicine 08/31/23 Laurel Monterroso Aeronautical Design EngineerTester Electronic Scale 10/27/22 Saige Aguilar 09/26/23 documented as of this encounter
--- OUTSIDE RECORDS SUMMARY | 2024-11-11 10:49 | XMS_ITS | Encounter Summary ---
Author Organization [employer] Address [address] 7t [place] [address] Care Team Providers Care Nurse First Assist Name Role Phone Radha Jamison DO Primary Care Provider [phone] Abdias Murillo PharmD Unavailable Unavail able Nelia Sullivan PharmD Unavailable [phone] Encounter Details Date Type Department Care Team (Late st Contact Info) Description 06/15/2023 Orders Only [facility] MEDICINE [address] [place] [address] Radha Jamison DO [address] [place], [place] [phone] Stenosis of right carotid artery Social History [...] Description 11/14/2024 1:30 PM EDT Office Visit [facility] MEDICINE [address] [place] [address] Jered Aguilera MD [address] [place] [address] 12/06/2024 10:30 AM EDT Medication Management [facility] MEDICINE [address] [place] [address] Nelia Sullivan PharmD [address] [place] [address] 03/13/2025 9:30 AM EST Office Visit [facility] OPTOMETRY [address] [place] [address] Radha Taylor, OD [address] [place] [address] documented as of this encounter Goals Goal [...] documented as of this encounter Care Teams Nurse First Assist Relationship Specialty Start Date End Date Radha Jamison DO [address] [place] [address] PCP - General Family Medicine 01/26/12 Abdias Murillo PharmD [address] [place] [address] Pharmacist Internal Medicine 03/21/22 08/30/23 Nelia Sullivan PharmD [address] [place] [address] Pharmacist Internal Medicine 08/31/23 Laurel Monterroso ButtonerLobbyist 10/27/22 Saige Aguilar 09/26/23 documented as of this encounter
--- OUTSIDE RECORDS SUMMARY | 2024-11-11 10:49 | XMS_ITS | Encounter Summary ---
Author Organization [employer] Address [address] [facility] 7t [place] [address] Care Team Providers Care Ceo & Co Founder Name Role Phone Radha Jamison DO Primary Care Provider Abdias Murillo PharmD Unavailable Unavail able Nelia Sullivan PharmD Unavailable [phone] Reason for Visit * Reason Comments Med Refill Encounter Details Date Type Department Care Team (Late st Contact Info) Description 08/11/[address] [facility] MEDICINE [address] [place] [address] Radha Jamison DO [address] [place] [address] Anemia, unspecified type Social History Tobacco Use [...] for patient to contact Mary Reynolds at [phone]. documented in this encounter Plan of Treatment Upcoming Encounters Date Type Department Care Team (Late st Contact Info) Description 11/14/2024 1:30 PM EDT Office Visit [facility] MEDICINE [address] [place] [address] Jered Aguilera MD [address] [place] [address] 12/06/2024 10:30 AM EDT Medication Management [facility] MEDICINE [address] [place] [address] Nelia Sullivan PharmD [address] [place] [address] 03/13/2025 9:30 AM EST Office Visit [facility] OPTOMETRY [address] [place] [address] Radha Taylor OD [address] [place] [address] documented as of this encounter Goals Goal [...] documented as of this encounter Care Teams Ceo & Co Founder Relationship Specialty Start Date End Date Radha Jamison DO [address] [place] [address] PCP - General Family Medicine 01/26/12 Abdias Murillo, PharmD [address] [place] [address] Pharmacist Internal Medicine 03/21/22 08/30/23 Nelia Sullivan, Camron [address] [place] [address] Pharmacist Internal Medicine 08/31/23 Laurel Monterroso Web Project ManagerFormat Proofreader 10/27/22 Saige Aguilar 09/26/23 documented as of this encounter
--- OUTSIDE RECORDS SUMMARY | 2024-11-11 10:49 | XMS_ITS | Encounter Summary ---
Author Organization [employer] Address [address] [facility] [address] 7[address] [place] [address] Care Team Providers Care Meatman Name Role Phone Radha Jamison DO Primary Care Provider [phone] Nelia Sullivan PharmD Unavailable [phone] Encounter Details Date Type Department Care Team ([facility] st Contact Info) Description 01/30/2024 Telephone [facility]S [address] [place], [place] [phone] Radha Jamison DO [address] [place] [address] Social History Tobacco Use Types Packs/Day Years [...] Upcoming Encounters Date Type Department Care Team ([facility] st Contact Info) Description 11/14/2024 1:30 PM EDT Office Visit [facility] MEDICINE [address] [place] [address] Jered Aguilera MD [address] [place] [address] 12/06/2024 10:30 AM EDT Medication Management [facility] MEDICINE [address] [place] [address] Nelia Sullivan, KeithD [address] [place] [address] 03/13/2025 9:30 AM EST Office Visit [facility] OPTOMETRY [address] [place] [address] Radha Taylor, OD [address] [place] [address] documented as of this encounter Goals Goal [...] documented as of this encounter Care Teams Meatman Relationship Specialty Start Date End Date Radha Jamison DO [address] [place] [address] PCP - General Family Medicine 01/26/12 Felice Sullivanyssa, PharmD [address] [place] [address] Pharmacist Internal Medicine 08/31/23 Laurel Monterroso Optical Lathe OperatorCoffin Maker 10/27/22 Saige Aguilar 09/26/23 documented as of this encounter
--- OUTSIDE RECORDS SUMMARY | 2024-11-11 10:49 | XMS_ITS | Encounter Summary ---
Author Organization [employer] Address [address] [place] [address] Care Team Providers Care Feeder Operator Automatic Name Role Phone Radha Jamison DO Primary Care Provider DelAbdias hardy PharmD Unavailable Unavail able Nelia uSllivan PharmD Unavailable [phone] Encounter Details Date Type Department Care Team (Late Contact Info) Description 02/03/2022 Orders Only [facility] [address] [place] [address] Radha Jamison DO [address] [place], [place] [phone] Social History Tobacco Use Types Packs/Day Years [...] 11/14/2024 1:30 PM EDT Office Visit [facility] [address], [place] [phone] Jered Aguilera MD [address] [place], [place] [phone] 12/06/2024 10:30 AM EDT Medication Management [facility] [address] [place] [address] Nelia Sullivan, PharmD [address] [place] [phone] 03/13/2025 9:30 AM EST Office Visit [facility] [address] [place] [address] TarRadha bang, OD [address] [place] [address] documented as of this encounter Procedures Procedure [...] Sedimentation Rate 23(H) 0 - 20 MM/HR [facility] Comment:Patients with polycy themia and many hemoglobin abnormalitiesmay have depressed sed rates whereas patients with anemiamay have elevated sed rates. 04/24/2022 4:19 PM EDT 04/24/2022 4:27 PM EDT [employer] [facility] External Provider LAB BLO OD ORDERABLES Final Result Performing Organization Address [facility] de Phone Number [facility] [address] [place] [address] [phone] * C-reactive Protein (04/24/2022 4:19 PM EDT) C Reactive Protein 0.28 < or = 0.50 mg/dL [facility] 04/24/2022 4:19 PM EDT 04/24/2022 4:22 PM EDT [employer] [facility] [employer] External Provider LAB BLO OD ORDERABLES Final Result Performing Organization Address [facility] Phone Number [facility] [address] [place] [address] [phone] * Magnesium (04/24/2022 4:19 PM EDT) Pathologist [facility] Magnesium 1.7 1.6 - 2.6 mg/dL [facility] 04/24/2022 4:19 PM EDT 04/24/2022 4:22 PM EDT [employer] External Provider LAB BLO OD ORDERABLES Final Result Performing Organization Address [facility] de Phone Number [facility] [address] [place] [address] [phone] * (ABNORMAL) Basic Metabolic Panel (04/24/2022 4:19 PM EDT) Sodium 135 135 - 145 mmol/L [facility] Potassium 4.7 3.3 - 5.1 mmol/L [facility] Chloride 100 96 - 108 mmol/L [facility] Carbon Dioxide 27 22 - 29 mmol/L [facility] Anion Gap 13 12 - 20 [facility] Urea Nitrogen (BUN) 20(H) 9 - 16 mg/dL [facility] Creatinine, Serum 1.01 0.5 - 1.4 mg/dL [facility] Creatinine Clr Calc Pharmacy 48.8 [facility] Comment:Provided height and weight: 152.4 cm,62.4 kg.eGFR (calculated from the MDRD study equation) and eCrCl(calculated from the Cockcroft-Gault equation) are based ondifferent parameters and may not yield comparable results.If eCrCl result is absurd, please check patient'sheight/weight. Estimated Glomerular Filt Rate 56 [facility] Comment:NOTE: For -Am erican individuals, multiply the result by 1.210.Chronic Kidney Disease: Estimated GFR < 60 mL/min/1.72u4Hehids Kidney Disease: Estimated GFR < 15 mL/min/1.73m2 Glucose 269(H) 60 - 115 mg/dL [facility] Calcium 9.2 8.4 - 10.2 mg/dL [facility] 04/24/2022 4:19 PM EDT 04/24/2022 4:22 PM EDT us [facility] External Provider LAB BLO OD ORDERABLES Final Result [facility] [address] [place] [address] [phone] * Hepatic Function Panel (04/24/2022 4:19 PM EDT) Bilirubin, Total 0.6 0.0 - 1.0 mg/dL [facility] Bilirubin, Direct <0.2 0.0 - 0.5 mg/dL [facility] Aspartate Amino Transferase 11 5 - 31 U/L [facility] Alanine Aminotransferase 6 0 - 31 U/L [facility] Total Protein 6.5 6.5 - 8.0 g/dL [facility] Albumin Level 4.0 3.5 - 5.0 g/dL [facility] Alkaline Phosphatase 80 39 - 117 U/L [facility] 04/24/2022 4:19 PM EDT 04/24/2022 4:22 PM EDT us [facility] External Provider LAB BLO OD ORDERABLES Final Result [facility] [address] [place] [phone] * (ABNORMAL) CBC auto differential (04/24/2022 4:19 PM EDT) White Blood Count 7.3 4.8 - 10.8 X10*3/uL [facility] Red Blood Count 4.14(L) 4.20 - 5.50 X10*6/uL [facility] Hemoglobin 12.1 12.0 - 16.0 g/dl [facility] Hematocrit 36.6(L) 37.0 - 47.0 % [facility] Mean Corpuscular Volume 88.4 80.0 - 98.0 fL [facility] Mean Corpuscular Hemoglobin 29.2 27.0 - 33.0 pg [facility] Mean Corpuscular HGB Conc 33.1 31.0 - 35.0 g/dl [facility] Red Cell Distribution Width 13.4 11.0 - 16.0 % [facility] Platelet Count 333 160 - 400 X10*3/uL [facility] Mean Platelet Volume 8.9(L) 9.4 - 12.3 fL [facility] Neutrophils Percent Auto 62.4 45 - 73 % [facility] Imm Gran Pct Auto 0.3 0.0 - 0.4 % [facility] Lymphocytes Percent Auto 28.8 20 - 40 % [facility] Monocytes Percent Auto 5.3 2 - 11 % [facility] Eosinophils Percent Auto 2.7 0 - 4 % [facility] Basophils Percent Auto 0.5 0 - 2 % [facility] NRBC Pct Auto 0.0 0.0 - 0.2 /100WBC [facility] Neutrophils Absolute Auto 4.6 2.0 - 8.3 x10*3/uL [facility] Imm Gran Abs Auto 0.02 0.00 - 0.03 X10*3/uL [facility] Lymphocytes Absolute Auto 2.1 1.2 - 4.9 X10*3/uL [facility] Monocytes Absolute Auto 0.4 0.1 - 1.2 X10*3/uL [facility] Eosinophils Absolute Auto 0.2 0.0 - 0.4 X10*3/uL [facility] Basophils Absolute Auto 0.0 0.0 - 0.2 X10*3/uL [facility] NRBC Abs Auto 0.000 0.0 - 0.012 X10*3/uL [facility] 04/24/2022 4:19 PM EDT 04/24/2022 4:22 PM EDT us [facility] External Provider LAB BLO OD ORDERABLES Final Result [facility] [address] [place] [address] [phone] * (ABNORMAL) Urinalysis, Complete, with Reflex to Culture (04/17/2022 10:53 AM EST) Color Urine Yellow [facility] Appearance Urine Clear [facility] PH 7.5 5.0 - 9.0 [facility] Glucose Urine UA 100(A) Negative mg/dL [facility] Urine Blood Negative Negative [facility] Specific [place] - Urine >=1.030(H) 1.005 - 1.025 [facility] Urine Protein 100 (2+)(A) Neg-Trace mg/dL [facility] Urine Ketones Negative Negative mg/dL [facility] Nitrite Urine Negative Negative [facility] Leukocyte Esterase Urine Negative Negative [facility] RBC Urine 3-5(A) 0 - 2 /HPF [facility] Urine WBC 0-5 0 - 5 /HPF [facility] Urine Squamous Epithelial Cell 3-5 0 - 2 /HPF [facility] Urine Bacteria None Seen None Seen [facility] Hyaline Casts, Urine 0-2 0 - 2 /LPF [facility] 04/17/2022 10:5 3 AM EST 04/17/2022 10:56 AM EST Narrative [facility] - 04/17/2022 11:06 AM EST Urine, Clean Catch [employer] [facility] External Provider LAB URI NE ORDERABLES Final Result Performing Organization Address City/[facility]/ZIP Co de Phone Number [facility] [address] [place] [address] [phone] * (ABNORMAL) Sed Rate by Modified Liloren (04/17/2022 8:21 AM EST) Erythrocyte Sedimentation Rate 23(H) 0 - 20 MM/HR [facility] Comment:Patients with polycy themia and many hemoglobin abnormalitiesmay have depressed sed rates whereas patients with anemiamay have elevated sed rates. 04/17/2022 8:21 AM EST 04/17/2022 8:41 AM EST [facility] External Provider LAB BLO OD ORDERABLES Final Result Performing Organization Address City/[facility]/ZIP Co de Phone Number [facility] [address] [place] [address] [phone] * Lipase (04/17/2022 8:21 AM EST) Lipase 10 8 - 78 U/L [facility] 04/17/2022 8:21 AM EST 04/17/2022 8:24 AM EST [employer] [facility] [employer] External Provider LAB BLO OD ORDERABLES Final Result Performing Organization Address City/[facility]/ZIP Co de Phone Number [facility] [address] [place] [phone] * C-reactive Protein (04/17/2022 8:21 AM EST) C Reactive Protein 0.23 < or = 0.50 mg/dL [facility] 04/17/2022 8:21 AM EST 04/17/2022 8:24 AM EST [facility] [employer] External Provider LAB BLO OD ORDERABLES Final Result Performing Organization Address [facility]/ZIP Co de Phone Number [facility] [address] [place] [address] [phone] * Magnesium (04/17/2022 8:21 AM EST) Pathologist [facility] Magnesium 1.6 1.6 - 2.6 mg/dL [facility] 04/17/2022 8:21 AM EST 04/17/2022 8:24 AM EST [facility] External Provider LAB BLO OD ORDERABLES Final Result Performing Organization Address City/[facility]/ZIP Co de Phone Number [facility] [address] [place] [address] [phone] * (ABNORMAL) Hepatic Function Panel (04/17/2022 8:21 AM EST) Bilirubin, Total 0.7 0.0 - 1.0 mg/dL [facility] Bilirubin, Direct <0.2 0.0 - 0.5 mg/dL [facility] Aspartate Amino Transferase 10 5 - 31 U/L [facility] Alanine Aminotransferase 7 0 - 31 U/L [facility] Total Protein 6.2(L) 6.5 - 8.0 g/dL [facility] Albumin Level 3.8 3.5 - 5.0 g/dL [facility] Alkaline Phosphatase 71 39 - 117 U/L [facility] 04/17/2022 8:21 AM EST 04/17/2022 8:24 AM EST [facility] External Provider LAB BLO OD ORDERABLES Final Result Performing Organization Address City/[facility]/ZIP Co de Phone Number [facility] [address] [place] [address] [phone] * (ABNORMAL) Basic Metabolic Panel (04/17/2022 8:21 AM EST) Sodium 138 135 - 145 mmol/L [facility] Potassium 4.9 3.3 - 5.1 mmol/L [facility] Chloride 104 96 - 108 mmol/L [facility] Carbon Dioxide 26 22 - 29 mmol/L [facility] Anion Gap 13 12 - 20 [facility] Urea Nitrogen (BUN) 17(H) 9 - 16 mg/dL [facility] Creatinine, Serum 0.79 0.5 - 1.4 mg/dL [facility] Creatinine Clr Calc Pharmacy 66.3 [facility] Comment:Provided height and weight: 157.48 cm,63.503 kg.eGFR (calculated from the MDRD study equation) and eCrCl(calculated from the Cockcroft-Gault equation) are based ondifferent parameters and may not yield comparable results.If eCrCl result is absurd, please check patient'sheight/weight. Estimated Glomerular Filt Rate >60 [facility] Comment:NOTE: For -Am erican individuals, multiply the result by 1.210.Chronic Kidney Disease: Estimated GFR < 60 mL/min/1.38k5Znjlpo Kidney Disease: Estimated GFR < 15 mL/min/1.73m2 Glucose 272(H) 60 - 115 mg/dL [facility] Calcium 9.1 8.4 - 10.2 mg/dL [facility] 04/17/2022 8:21 AM EST 04/17/2022 8:24 AM EST [facility] External Provider LAB BLO OD ORDERABLES Final Result Performing Organization Address City/[facility]/ZIP Co de Phone Number [facility] [address] [place] [address] [phone] * (ABNORMAL) CBC auto differential (04/17/2022 8:21 AM EST) White Blood Count 5.7 4.8 - 10.8 X10*3/uL [facility] Red Blood Count 4.01(L) 4.20 - 5.50 X10*6/uL [facility] Hemoglobin 11.7(L) 12.0 - 16.0 g/dl [facility] Hematocrit 35.9(L) 37.0 - 47.0 % [facility] Mean Corpuscular Volume 89.5 80.0 - 98.0 fL [facility] Mean Corpuscular Hemoglobin 29.2 27.0 - 33.0 pg [facility] Mean Corpuscular HGB Conc 32.6 31.0 - 35.0 g/dl [facility] Red Cell Distribution Width 13.4 11.0 - 16.0 % [facility] Platelet Count 309 160 - 400 X10*3/uL [facility] Mean Platelet Volume 9.3(L) 9.4 - 12.3 fL [facility] Neutrophils Percent Auto 60.9 45 - 73 % [facility] Imm Gran Pct Auto 0.4 0.0 - 0.4 % [facility] Lymphocytes Percent Auto 27.3 20 - 40 % [facility] Monocytes Percent Auto 6.3 2 - 11 % [facility] Eosinophils Percent Auto 4.4(H) 0 - 4 % [facility] Basophils Percent Auto 0.7 0 - 2 % [facility] NRBC Pct Auto 0.0 0.0 - 0.2 /100WBC [facility] Neutrophils Absolute Auto 3.5 2.0 - 8.3 x10*3/uL [facility] Imm Gran Abs Auto 0.02 0.00 - 0.03 X10*3/uL [facility] Lymphocytes Absolute Auto 1.6 1.2 - 4.9 X10*3/uL [facility] Monocytes Absolute Auto 0.4 0.1 - 1.2 X10*3/uL [facility] Eosinophils Absolute Auto 0.3 0.0 - 0.4 X10*3/uL [facility] Basophils Absolute Auto 0.0 0.0 - 0.2 X10*3/uL [facility] NRBC Abs Auto 0.000 0.0 - 0.012 X10*3/uL [facility] 04/17/2022 8:21 AM EST 04/17/2022 8:24 AM EST [facility] [facility] [employer] External Provider LAB BLO OD ORDERABLES Final Result Performing Organization Address [facility] Co de Phone Number [facility] [address] [place] [address] [phone] * Creatinine, Serum (04/13/2022 7:33 AM EST) Creatinine, Serum 0.75 0.5 - 1.4 mg/dL [facility] Creatinine Clr Calc Pharmacy 70.3 [facility] Comment:Provided height and weight: 157.48 cm,64.41 kg.eGFR (calculated from the MDRD study equation) and eCrCl(calculated from the Cockcroft-Gault equation) are based ondifferent parameters and may not yield comparable results.If eCrCl result is absurd, please check patient'sheight/weight. Estimated Glomerular Filt Rate >60 [facility] Comment:NOTE: For -Am erican individuals, multiply the result by 1.210.Chronic Kidney Disease: Estimated GFR < 60 mL/min/1.22t2Ltqmew Kidney Disease: Estimated GFR < 15 mL/min/1.73m2 04/13/2022 7:33 AM EST 04/13/2022 7:38 AM EST [facility] [facility] [facility] [employer] External Provider LAB BLO OD ORDERABLES Final Result Performing Organization Address [facility]/ZIP Co de Phone Number [facility] [address] [place] [address] [phone] * BUN (Blood Urea Nitrogen) (04/13/2022 7:33 AM EST) Urea Nitrogen (BUN) 12 9 - 16 mg/dL [facility] 04/13/2022 7:33 AM EST 04/13/2022 7:38 AM EST us [facility] External Provider LAB BLO OD ORDERABLES Final Result Performing Organization Address City/State/[facility] Co de Phone Number [facility] [address] [place] [address] [phone] * (ABNORMAL) CBC auto differential (04/13/2022 7:33 AM EST) White Blood Count 6.6 4.8 - 10.8 X10*3/uL [facility] Red Blood Count 4.12(L) 4.20 - 5.50 X10*6/uL [facility] Hemoglobin 12.1 12.0 - 16.0 g/dl [facility] Hematocrit 36.6(L) 37.0 - 47.0 % [facility] Mean Corpuscular Volume 88.8 80.0 - 98.0 fL [facility] Mean Corpuscular Hemoglobin 29.4 27.0 - 33.0 pg [facility] Mean Corpuscular HGB Conc 33.1 31.0 - 35.0 g/dl [facility] Red Cell Distribution Width 13.6 11.0 - 16.0 % [facility] Platelet Count 291 160 - 400 X10*3/uL [facility] Mean Platelet Volume 9.0(L) 9.4 - 12.3 fL [facility] Neutrophils Percent Auto 55.5 45 - 73 % [facility] Imm Gran Pct Auto 0.2 0.0 - 0.4 % [facility] Lymphocytes Percent Auto 33.7 20 - 40 % [facility] Monocytes Percent Auto 6.5 2 - 11 % [facility] Eosinophils Percent Auto 3.6 0 - 4 % [facility] Basophils Percent Auto 0.5 0 - 2 % [facility] NRBC Pct Auto 0.0 0.0 - 0.2 /100WBC [facility] Neutrophils Absolute Auto 3.7 2.0 - 8.3 x10*3/uL [facility] Imm Gran Abs Auto 0.01 0.00 - 0.03 X10*3/uL [facility] Lymphocytes Absolute Auto 2.2 1.2 - 4.9 X10*3/uL [facility] Monocytes Absolute Auto 0.4 0.1 - 1.2 X10*3/uL [facility] Eosinophils Absolute Auto 0.2 0.0 - 0.4 X10*3/uL [facility] Basophils Absolute Auto 0.0 0.0 - 0.2 X10*3/uL [facility] NRBC Abs Auto 0.000 0.0 - 0.012 X10*3/uL [facility] 04/13/2022 7:33 AM EST 04/13/2022 7:38 AM EST [facility] [facility] [employer] External Provider LAB BLO OD ORDERABLES Final Result Performing Organization Address City/[facility]/ZIP Co de Phone Number [facility] [address] [place] [address] [phone] * (ABNORMAL) GLUCOSE, WHOLE BLOOD (04/13/2022 7:27 AM EST) [facility] Glucose, Whole Blood 197(H) 60 - 115 mg/dL [facility] Comment:METER #: [id number] 04/13/2022 7:27 AM EST 04/13/2022 7:31 AM EST [facility] [facility] [employer] External Provider LAB BLO OD ORDERABLES Final Result Performing Organization Address [facility] Co de Phone Number [facility] [address] [place] [address] [phone] * HIGH SENSITIVITY TROPONIN I (04/03/2022 8:36 PM EST) [facility] TROPONIN I HIGH SENSITIVITY 6.0 <3.5 - 17.0 ng/L [facility] Comment:The Ibrahim high sens itivity Troponin-I results should beused in conjunction with other diagnostic information suchas ECG, clinical observations and information, and patientsymptoms to aid in the diagnosis of IA. 04/03/2022 8:36 PM EST 04/03/2022 8:38 PM EST [facility] [employer] External Provider LAB BLO OD ORDERABLES Final Result [facility] [address] [place] [address] [phone] * Lipase (04/03/2022 8:36 PM EST) [facility] Lipase 10 8 - 78 U/L [facility] 04/03/2022 8:36 PM EST 04/03/2022 8:38 PM EST [facility] [employer] External Provider LAB BLO OD ORDERABLES Final Result Performing Organization Address City/[facility]/ZIP Co de Phone Number [facility] [address] [place] [address] [phone] * (ABNORMAL) Basic Metabolic Panel (04/03/2022 8:36 PM EST) [facility] Sodium 138 135 - 145 mmol/L [facility] Potassium 3.9 3.3 - 5.1 mmol/L [facility] Chloride 104 96 - 108 mmol/L [facility] Carbon Dioxide 27 22 - 29 mmol/L [facility] Anion Gap 11(L) 12 - 20 [facility] Urea Nitrogen (BUN) 11 9 - 16 mg/dL [facility] Creatinine, Serum 0.74 0.5 - 1.4 mg/dL [facility] Creatinine Clr Calc Pharmacy 70.7 [facility] Comment:Provided height and weight: 157.48 cm,63.503 kg.eGFR (calculated from the MDRD study equation) and eCrCl(calculated from the Cockcroft-Gault equation) are based ondifferent parameters and may not yield comparable results.If eCrCl result is absurd, please check patient'sheight/weight. Estimated Glomerular Filt Rate >60 [facility] Comment:NOTE: For -Am erican individuals, multiply the result by 1.210.Chronic Kidney Disease: Estimated GFR < 60 mL/min/1.54i5Swesrx Kidney Disease: Estimated GFR < 15 mL/min/1.73m2 Glucose 246(H) 60 - 115 mg/dL [facility] Calcium 9.0 8.4 - 10.2 mg/dL [facility] 04/03/2022 8:36 PM EST 04/03/2022 8:38 PM EST [facility] [employer] External Provider LAB BLO OD ORDERABLES Final Result Performing Organization Address [facility] de Phone Number [facility] [address] [place] [address] [phone] * (ABNORMAL) Hepatic Function Panel (04/03/2022 8:36 PM EST) Bilirubin, Total 0.6 0.0 - 1.0 mg/dL [facility] Bilirubin, Direct 0.2 0.0 - 0.5 mg/dL [facility] Aspartate Amino Transferase 10 5 - 31 U/L [facility] Alanine Aminotransferase 8 0 - 31 U/L [facility] Total Protein 5.8(L) 6.5 - 8.0 g/dL [facility] Albumin Level 3.7 3.5 - 5.0 g/dL [facility] Alkaline Phosphatase 76 39 - 117 U/L [facility] 04/03/2022 8:36 PM EST 04/03/2022 8:38 PM EST [facility] [employer] External Provider LAB BLO OD ORDERABLES Final Result Performing Organization Address [facility] Co de Phone Number [facility] [address] [place] [address] [phone] * (ABNORMAL) CBC auto differential (04/03/2022 8:36 PM EST) White Blood Count 6.0 4.8 - 10.8 X10*3/uL [facility] Red Blood Count 4.10(L) 4.20 - 5.50 X10*6/uL [facility] Hemoglobin 12.0 12.0 - 16.0 g/dl [facility] Hematocrit 35.6(L) 37.0 - 47.0 % [facility] Mean Corpuscular Volume 86.8 80.0 - 98.0 fL [facility] Mean Corpuscular Hemoglobin 29.3 27.0 - 33.0 pg [facility] Mean Corpuscular HGB Conc 33.7 31.0 - 35.0 g/dl [facility] Red Cell Distribution Width 13.3 11.0 - 16.0 % [facility] Platelet Count 276 160 - 400 X10*3/uL [facility] Mean Platelet Volume 9.2(L) 9.4 - 12.3 fL [facility] Neutrophils Percent Auto 58.2 45 - 73 % [facility] Imm Gran Pct Auto 0.2 0.0 - 0.4 % [facility] Lymphocytes Percent Auto 32.9 20 - 40 % [facility] Monocytes Percent Auto 6.0 2 - 11 % [facility] Eosinophils Percent Auto 2.2 0 - 4 % [facility] Basophils Percent Auto 0.5 0 - 2 % [facility] NRBC Pct Auto 0.0 0.0 - 0.2 /100WBC [facility] Neutrophils Absolute Auto 3.5 2.0 - 8.3 x10*3/uL [facility] Imm Gran Abs Auto 0.01 0.00 - 0.03 X10*3/uL [facility] Lymphocytes Absolute Auto 2.0 1.2 - 4.9 X10*3/uL [facility] Monocytes Absolute Auto 0.4 0.1 - 1.2 X10*3/uL [facility] Eosinophils Absolute Auto 0.1 0.0 - 0.4 X10*3/uL [facility] Basophils Absolute Auto 0.0 0.0 - 0.2 X10*3/uL [facility] NRBC Abs Auto 0.000 0.0 - 0.012 X10*3/uL [facility] 04/03/2022 8:36 PM EST 04/03/2022 8:38 PM EST [employer] [facility] External Provider LAB BLO OD ORDERABLES Final Result Performing Organization Address City/[facility]/ZIP Co de Phone Number [facility] [address] [place] [phone] * (ABNORMAL) GLUCOSE, WHOLE BLOOD (04/03/2022 7:56 PM EST) Glucose, Whole Blood 227(H) 60 - 115 mg/dL [facility] Comment:METER #: [id number] 04/03/2022 7:56 PM EST 04/03/2022 8:01 PM EST [facility] External Provider LAB BLO OD ORDERABLES Final Result Performing Organization Address City/[facility] Co de Phone Number [facility] [address] [place] [phone] * (ABNORMAL) B Type Natriuretic Peptide (BNP) (03/09/2022 5:39 PM EST) B Type Natriuretic Peptide 125(H) <100 pg/mL [facility] Comment:For those patients w ho are being treated with Natrecor(nesiritide, recombinant BNP), BNP testing should beperformed at least two hours post treatment in order toensure that only endogenous levels of BNP are detected. 03/09/2022 5:39 PM EST 03/09/2022 6:48 PM EST [facility] External Provider LAB BLO OD ORDERABLES Final Result Performing Organization Address [facility] Co de Phone Number [facility] [address] [place] [address] [phone] * SARS-CoV-2 RNA, Influenza A/B, and RSV RNA, Ql NAAT (03/09/2022 5:39 PM EST) Pathologist [facility] Influenza A PCR NEGATIVE Negative [facility] Influenza B PCR NEGATIVE Negative [facility] Resp Syncy Virus RNA Qual PCR NEGATIVE Negative [facility] SARS COV2 PCR NEGATIVE Negative [facility] SARS/Flu/RSV Note See Note [facility] Comment:All test results mus t [...] use by authorized laboratories.Testing performed on the CRE Secure GeneXpert utilizingreal-time RT-PCR.All SARS CoV2 and positive influenza A/B results arereported to [facility]. 03/09/2022 5:39 PM EST 03/09/2022 5:43 PM EST [employer] Exter nal Provider LAB MICROBIOLOGY - GENERAL ORDERABLES Final Result Performing Organization Address [facility] Co de Phone Number [facility] [address] [place] [address] [phone] * HIGH SENSITIVITY TROPONIN I (03/09/2022 5:39 PM EST) TROPONIN I HIGH SENSITIVITY 5.6 <3.5 - 17.0 ng/L [facility] Comment:The Ibrahim high sens itivity Troponin-I results should beused in conjunction with other diagnostic information suchas ECG, clinical observations and information, and patientsymptoms to aid in the diagnosis of IA. 03/09/2022 5:39 PM EST 03/09/2022 5:43 PM EST us [facility] External Provider LAB BLO OD ORDERABLES Final Result [facility] [address] [place] [address] [phone] * (ABNORMAL) Comprehensive Metabolic Panel (03/09/2022 5:39 PM EST) Sodium 139 135 - 145 mmol/L [facility] Potassium 3.9 3.3 - 5.1 mmol/L [facility] Chloride 103 96 - 108 mmol/L [facility] Carbon Dioxide 27 22 - 29 mmol/L [facility] Anion Gap 13 12 - 20 [facility] Urea Nitrogen (BUN) 18(H) 9 - 16 mg/dL [facility] Creatinine, Serum 0.95 0.5 - 1.4 mg/dL [facility] Creatinine Clr Calc Pharmacy 53.0 [facility] Comment:Provided height and weight: 152.4 cm,65.2 kg.eGFR (calculated from the MDRD study equation) and eCrCl(calculated from the Cockcroft-Gault equation) are based ondifferent parameters and may not yield comparable results.If eCrCl result is absurd, please check patient'sheight/weight. Estimated Glomerular Filt Rate >60 [facility] Comment:NOTE: For -Am erican individuals, multiply the result by 1.210.Chronic Kidney Disease: Estimated GFR < 60 mL/min/1.33d9Mlnhvo Kidney Disease: Estimated GFR < 15 mL/min/1.73m2 Glucose 326(H) 60 - 115 mg/dL [facility] Calcium 9.1 8.4 - 10.2 mg/dL [facility] Bilirubin, Total 0.3 0.0 - 1.0 mg/dL [facility] Aspartate Amino Transferase 8 5 - 31 U/L [facility] Alanine Aminotransferase <6 0 - 31 U/L [facility] Total Protein 5.9(L) 6.5 - 8.0 g/dL [facility] Albumin Level 3.6 3.5 - 5.0 g/dL [facility] Alkaline Phosphatase 81 39 - 117 U/L [facility] 03/09/2022 5:39 PM EST 03/09/2022 5:43 PM EST us [facility] External Provider LAB BLO OD ORDERABLES Final Result [facility] [address] [place] [address] [phone] * (ABNORMAL) CBC auto differential (03/09/2022 5:39 PM EST) White Blood Count 7.3 4.8 - 10.8 X10*3/uL [facility] Red Blood Count 4.03(L) 4.20 - 5.50 X10*6/uL [facility] Hemoglobin 11.7(L) 12.0 - 16.0 g/dl [facility] Hematocrit 35.1(L) 37.0 - 47.0 % [facility] Mean Corpuscular Volume 87.1 80.0 - 98.0 fL [facility] Mean Corpuscular Hemoglobin 29.0 27.0 - 33.0 pg [facility] Mean Corpuscular HGB Conc 33.3 31.0 - 35.0 g/dl [facility] Red Cell Distribution Width 13.4 11.0 - 16.0 % [facility] Platelet Count 296 160 - 400 X10*3/uL [facility] Mean Platelet Volume 9.3(L) 9.4 - 12.3 fL [facility] Neutrophils Percent Auto 63.9 45 - 73 % [facility] Imm Gran Pct Auto 0.1 0.0 - 0.4 % [facility] Lymphocytes Percent Auto 27.1 20 - 40 % [facility] Monocytes Percent Auto 5.9 2 - 11 % [facility] Eosinophils Percent Auto 2.6 0 - 4 % [facility] Basophils Percent Auto 0.4 0 - 2 % [facility] NRBC Pct Auto 0.0 0.0 - 0.2 /100WBC [facility] Neutrophils Absolute Auto 4.6 2.0 - 8.3 x10*3/uL [facility] Imm Gran Abs Auto 0.01 0.00 - 0.03 X10*3/uL [facility] Lymphocytes Absolute Auto 2.0 1.2 - 4.9 X10*3/uL [facility] Monocytes Absolute Auto 0.4 0.1 - 1.2 X10*3/uL [facility] Eosinophils Absolute Auto 0.2 0.0 - 0.4 X10*3/uL [facility] Basophils Absolute Auto 0.0 0.0 - 0.2 X10*3/uL [facility] NRBC Abs Auto 0.000 0.0 - 0.012 X10*3/uL [facility] 03/09/2022 5:39 PM EST 03/09/2022 5:43 PM EST us [facility] External Provider LAB BLO OD ORDERABLES Final Result Performing Organization Address City/State/[facility] Co de Phone Number [facility] [address] [place] [phone] * Prothrombin Time-INR (03/09/2022 5:39 PM EST) Prothrombin Time 10.9 10.0 - 13.1 SEC [facility] INTERNATIONAL NORM RATIO 1.0 0.9 - 1.1 [facility] Comment:INTERNATIONAL NORMAL IZED RATIO (INR) [...] 5:39 PM EST 03/09/2022 5:43 PM EST [employer] External Provider LAB BLO OD ORDERABLES Final Result Performing Organization Address [facility] de Phone Number [facility] [address] [place] [address] [phone] * GLUCOSE, WHOLE BLOOD (03/01/2022 12:41 AM EST) Glucose, Whole Blood 79 60 - 115 mg/dL [facility] Comment:METER #: [id number] 1 03/01/2022 12:4 1 AM EST 03/01/2022 12:46 AM EST [employer] External Provider LAB BLO OD ORDERABLES Final Result Performing Organization Address [facility] Phone Number [facility] [address] [place] [address] [phone] * (ABNORMAL) GLUCOSE, WHOLE BLOOD (02/28/2022 10:39 PM EST) Glucose, Whole Blood 273(H) 60 - 115 mg/dL [facility] Comment:METER #: [id number] 1 02/28/2022 10:3 9 PM EST 02/28/2022 10:45 PM EST [employer] External Provider LAB BLO OD ORDERABLES Final Result Performing Organization Address [facility] de Phone Number [facility] [address] [place] [address] [phone] * (ABNORMAL) Comprehensive Metabolic Panel (02/28/2022 9:42 PM EST) Sodium 138 135 - 145 mmol/L [facility] Potassium 4.3 3.3 - 5.1 mmol/L [facility] Comment:Slight Hemolysis Chloride 106 96 - 108 mmol/L [facility] Carbon Dioxide 24 22 - 29 mmol/L [facility] Anion Gap 12 12 - 20 [facility] Urea Nitrogen (BUN) 14 9 - 16 mg/dL [facility] Creatinine, Serum 0.87 0.5 - 1.4 mg/dL [facility] Creatinine Clr Calc Pharmacy 57.2 [facility] Comment:Provided height and weight: 152.4 cm,63.503 kg.eGFR (calculated from the MDRD study equation) and eCrCl(calculated from the Cockcroft-Gault equation) are based ondifferent parameters and may not yield comparable results.If eCrCl result is absurd, please check patient'sheight/weight. Estimated Glomerular Filt Rate >60 [facility] Comment:NOTE: For -Am erican individuals, multiply the result by 1.210.Chronic Kidney Disease: Estimated GFR < 60 mL/min/1.58w3Hxjezh Kidney Disease: Estimated GFR < 15 mL/min/1.73m2 Glucose 378(HH) 60 - 115 mg/dL [facility] Comment:Critical value for t est(s): GLUR Results called to and readback by: EULA Person calling: BIANKA Date: 02/28/22Time: 2220 Calcium 9.3 8.4 - 10.2 mg/dL [facility] Bilirubin, Total 0.3 0.0 - 1.0 mg/dL [facility] Aspartate Amino Transferase 12 5 - 31 U/L [facility] Comment:Slight Hemolysis Alanine Aminotransferase 7 0 - 31 U/L [facility] Total Protein 6.7 6.5 - 8.0 g/dL [facility] Albumin Level 3.9 3.5 - 5.0 g/dL [facility] Alkaline Phosphatase 83 39 - 117 U/L [facility] 02/28/2022 9:42 PM EST 02/28/2022 9:48 PM EST us [facility] External Provider LAB BLO OD ORDERABLES Final Result [facility] [address] [place] [address] [phone] * HIGH SENSITIVITY TROPONIN I (02/28/2022 9:42 PM EST) [facility] TROPONIN I HIGH SENSITIVITY 7.1 <3.5 - 17.0 ng/L [facility] Comment:The Ibrahim high sens itivity Troponin-I results should beused in conjunction with other diagnostic information suchas ECG, clinical observations and information, and patientsymptoms to aid in the diagnosis of IA. 02/28/2022 9:42 PM EST 02/28/2022 9:48 PM EST us [facility] External Provider LAB BLO OD ORDERABLES Final Result [facility] [address] [place] [address] [phone] * (ABNORMAL) CBC (02/28/2022 9:42 PM EST) [facility] White Blood Count 7.0 4.8 - 10.8 X10*3/uL [facility] Red Blood Count 4.22 4.20 - 5.50 X10*6/uL [facility] Hemoglobin 12.1 12.0 - 16.0 g/dl [facility] Hematocrit 36.4(L) 37.0 - 47.0 % [facility] Mean Corpuscular Volume 86.3 80.0 - 98.0 fL [facility] Mean Corpuscular Hemoglobin 28.7 27.0 - 33.0 pg [facility] Mean Corpuscular HGB Conc 33.2 31.0 - 35.0 g/dl [facility] Red Cell Distribution Width 13.3 11.0 - 16.0 % [facility] Platelet Count 311 160 - 400 X10*3/uL [facility] Mean Platelet Volume 9.7 9.4 - 12.3 fL [facility] NRBC Pct Auto 0.0 0.0 - 0.2 /100WBC [facility] NRBC Abs Auto 0.000 0.0 - 0.012 X10*3/uL [facility] 02/28/2022 9:42 PM EST 02/28/2022 9:48 PM EST [employer] External Provider LAB BLO OD ORDERABLES Final Result Performing Organization Address [facility]/ZIP Co de Phone Number [facility] [address] [place] [address] [phone] * (ABNORMAL) GLUCOSE, WHOLE BLOOD (02/28/2022 9:38 PM EST) Glucose, Whole Blood 379(HH) 60 - 115 mg/dL [facility] Comment:METER #: [id number] 1 02/28/2022 9:38 PM EST 02/28/2022 9:48 PM EST [employer] External Provider LAB BLO OD ORDERABLES Final Result Performing Organization Address City/[facility] Co de Phone Number [facility] [address] [place] [phone] * (ABNORMAL) Urinalysis, Complete, with Reflex to Culture (02/22/2022 3:20 PM EST) Color Urine Yellow [facility] Appearance Urine Cloudy [facility] PH 6.5 5.0 - 9.0 [facility] Glucose Urine UA >=1000(A) Negative mg/dL [facility] Urine Blood Negative Negative [facility] Specific [place] - Urine 1.020 1.005 - 1.025 [facility] Urine Protein 100 (2+)(A) Neg-Trace mg/dL [facility] Urine Ketones Negative Negative mg/dL [facility] Nitrite Urine Negative Negative [facility] Leukocyte Esterase Urine Small (1+)(A) Negative [facility] RBC Urine 3-5(A) 0 - 2 /HPF [facility] Urine WBC 0-5 0 - 5 /HPF [facility] Urine Squamous Epithelial Cell 0-2 0 - 2 /HPF [facility] Urine Bacteria None Seen None Seen [facility] Hyaline Casts, Urine 3-5 0 - 2 /LPF [facility] 02/22/2022 3:20 PM EST 02/22/2022 3:27 PM EST Narrative [facility] - 02/22/2022 4:14 PM EST [id number], Clean Catch [employer] External Provider LAB URI NE ORDERABLES Final Result Performing Organization Address [facility] Co de Phone Number [facility] [address] [place] [address] [phone] * SARS-CoV-2 RNA, Influenza A/B, and RSV RNA, Ql NAAT (02/22/2022 3:14 PM EST) Influenza A PCR NEGATIVE Negative [facility] Influenza B PCR NEGATIVE Negative [facility] Resp Syncy Virus RNA Qual PCR NEGATIVE Negative [facility] SARS COV2 PCR NEGATIVE Negative [facility] SARS/Flu/RSV Note See Note [facility] Comment:All test results mus t [...] use by authorized laboratories.Testing performed on the CRE Secure GeneXpert utilizingreal-time RT-PCR.All SARS CoV2 and positive influenza A/B results arereported to [facility]. 02/22/2022 3:14 PM EST 02/22/2022 3:19 PM EST [employer] Exter nal Provider LAB MICROBIOLOGY - GENERAL ORDERABLES Final Result Performing Organization Address City/[facility]/ZIP Co de Phone Number [facility] [address] [place] [address] [phone] * HIGH SENSITIVITY TROPONIN I (02/22/2022 3:14 PM EST) [facility] TROPONIN I HIGH SENSITIVITY 8.8 <3.5 - 17.0 ng/L [facility] Comment:The Ibrahim high sens itivity Troponin-I results should beused in conjunction with other diagnostic information suchas ECG, clinical observations and information, and patientsymptoms to aid in the diagnosis of IA. 02/22/2022 3:14 PM EST 02/22/2022 3:19 PM EST [employer] External Provider LAB BLO OD ORDERABLES Final Result Performing Organization Address [facility] Phone Number [facility] [address] [place] [phone] * Magnesium (02/22/2022 3:14 PM EST) [facility] Magnesium 1.6 1.6 - 2.6 mg/dL [facility] 02/22/2022 3:14 PM EST 02/22/2022 3:19 PM EST [employer] External Provider LAB BLO OD ORDERABLES Final Result Performing Organization Address [facility] Phone Number [facility] [address] [place] [phone] * (ABNORMAL) Basic Metabolic Panel (02/22/2022 3:14 PM EST) [facility] Sodium 136 135 - 145 mmol/L [facility] Potassium 4.4 3.3 - 5.1 mmol/L [facility] Chloride 103 96 - 108 mmol/L [facility] Carbon Dioxide 27 22 - 29 mmol/L [facility] Anion Gap 10(L) 12 - 20 [facility] Urea Nitrogen (BUN) 20(H) 9 - 16 mg/dL [facility] Creatinine, Serum 0.99 0.5 - 1.4 mg/dL [facility] Creatinine Clr Calc Pharmacy 50.6 [facility] Comment:Provided height and weight: 152.4 cm,64.5 kg.eGFR (calculated from the MDRD study equation) and eCrCl(calculated from the Cockcroft-Gault equation) are based ondifferent parameters and may not yield comparable results.If eCrCl result is absurd, please check patient'sheight/weight. Estimated Glomerular Filt Rate 57 [facility] Comment:NOTE: For -Am erican individuals, multiply the result by 1.210.Chronic Kidney Disease: Estimated GFR < 60 mL/min/1.56x8Qrqrrp Kidney Disease: Estimated GFR < 15 mL/min/1.73m2 Glucose 343(H) 60 - 115 mg/dL [facility] Calcium 9.3 8.4 - 10.2 mg/dL [facility] 02/22/2022 3:14 PM EST 02/22/2022 3:19 PM EST us [facility] External Provider LAB BLO OD ORDERABLES Final Result [facility] [address] [place] [phone] * (ABNORMAL) Hepatic Function Panel (02/22/2022 3:14 PM EST) Bilirubin, Total 0.4 0.0 - 1.0 mg/dL [facility] Bilirubin, Direct <0.2 0.0 - 0.5 mg/dL [facility] Aspartate Amino Transferase 10 5 - 31 U/L [facility] Alanine Aminotransferase 6 0 - 31 U/L [facility] Total Protein 6.1(L) 6.5 - 8.0 g/dL [facility] Albumin Level 3.7 3.5 - 5.0 g/dL [facility] Alkaline Phosphatase 82 39 - 117 U/L [facility] 02/22/2022 3:14 PM EST 02/22/2022 3:19 PM EST [employer] [facility] External Provider LAB BLO OD ORDERABLES Final Result [facility] [address] [place] [address] [phone] * (ABNORMAL) CBC auto differential (02/22/2022 3:14 PM EST) White Blood Count 5.6 4.8 - 10.8 X10*3/uL [facility] Red Blood Count 3.99(L) 4.20 - 5.50 X10*6/uL [facility] Hemoglobin 11.8(L) 12.0 - 16.0 g/dl [facility] Hematocrit 35.1(L) 37.0 - 47.0 % [facility] Mean Corpuscular Volume 88.0 80.0 - 98.0 fL [facility] Mean Corpuscular Hemoglobin 29.6 27.0 - 33.0 pg [facility] Mean Corpuscular HGB Conc 33.6 31.0 - 35.0 g/dl [facility] Red Cell Distribution Width 13.2 11.0 - 16.0 % [facility] Platelet Count 265 160 - 400 X10*3/uL [facility] Mean Platelet Volume 10.0 9.4 - 12.3 fL [facility] Neutrophils Percent Auto 49.1 45 - 73 % [facility] Imm Gran Pct Auto 0.4 0.0 - 0.4 % [facility] Lymphocytes Percent Auto 40.1(H) 20 - 40 % [facility] Monocytes Percent Auto 6.1 2 - 11 % [facility] Eosinophils Percent Auto 3.4 0 - 4 % [facility] Basophils Percent Auto 0.9 0 - 2 % [facility] NRBC Pct Auto 0.0 0.0 - 0.2 /100WBC [facility] Neutrophils Absolute Auto 2.7 2.0 - 8.3 x10*3/uL [facility] Imm Gran Abs Auto 0.02 0.00 - 0.03 X10*3/uL [facility] Lymphocytes Absolute Auto 2.2 1.2 - 4.9 X10*3/uL [facility] Monocytes Absolute Auto 0.3 0.1 - 1.2 X10*3/uL [facility] Eosinophils Absolute Auto 0.2 0.0 - 0.4 X10*3/uL [facility] Basophils Absolute Auto 0.1 0.0 - 0.2 X10*3/uL [facility] NRBC Abs Auto 0.000 0.0 - 0.012 X10*3/uL [facility] 02/22/2022 3:14 PM EST 02/22/2022 3:19 PM EST [employer] [facility] External Provider LAB BLO OD ORDERABLES Final Result Performing Organization Address [facility] Co de Phone Number [facility] [address] [place] [phone] * Culture, Urine, Routine (02/22/2022 12:00 AM EST) 02/22/2022 02/22/2022 5:2 3 PM EST Comment:CC Narrative [facility] - 02/24/2022 11:31 AM EST Urine Culture Report Result Urine Culture 10,000 to 50,000 cfu/ml Urine Culture Mixed bacterial benton characteristic of Urine Culture urogenital contamination. Specimen Source: Urine clean catch [employer] Exter nal Provider LAB MICROBIOLOGY - GENERAL ORDERABLES Final Result Performing Organization Address [facility] Co de Phone Number [facility] [address] [place] [phone] documented in this encounter Visit Diagnoses Not on filedocumented in this encounter Care Teams Feeder Operator Automatic Relationship Specialty Start Date End Date Radha Jamison DO [address] [place] [phone] PCP - General Family Medicine 01/26/12 Abdias Murillo, PharmD [address] [place] [address] Pharmacist Internal Medicine 03/21/22 08/30/23 Nelia Sullivan, PharmD [address] [place] [address] Pharmacist Internal Medicine 08/31/23 Laurel Monterroso Looping Machine OperatorIv Rn 10/27/22 Saige Aguilar 09/26/23 documented as of this encounter
--- OUTSIDE RECORDS SUMMARY | 2024-11-11 10:49 | XMS_ITS | Encounter Summary ---
Author Organization [employer] Address [address] [facility] [address] [place] [address] Care Team Providers Care Senior Pl Sql Developer Name Role Phone Radha Jamison DO Primary Care Provider [phone] Abdias Murillo PharmD Unavailable Unavail able Nelia Sullivan PharmD Unavailable [phone] Reason for Visit * Reason Onset Date Comments Med Refill 10/18/2022 Encounter Details Date Type Department Care Team (Late st Contact Info) Description 10/18/2022 Telephone [facility] [address] [place] [address] Radha Jamison DO [address] [place] [address] Med Refill Social History Tobacco Use Types [...] PCP needed re:controlled medication. Pt's hx with [facility] appts is as follows: 05/05: Pt short [...] team nurses. Any questions, contact pt at [phone] (Divehi) * Telephone Encounter - Acacia Chakraborty RN [...] Description 11/14/2024 1:30 PM EDT Office Visit [facility] [address] [place] [address] Jered Aguilera MD [address] [place] [address] 12/06/2024 10:30 AM EDT Medication Management [facility] [address] [place] [address] Nelia Sullivan PharmD [address] [place] [address] 03/13/2025 9:30 AM EST Office Visit [facility] OPTOMETRY [address] [place] [address] Radha Taylor OD [address] [place] [address] documented as of this encounter Goals Goal [...] as of this encounter Care Teams Senior Pl Sql Developer Relationship Specialty Start Date End Date Radha Jamison DO [address] [place] [phone] PCP - General Family Medicine 01/26/12 Abdias Murillo PharmD [address] [place] [address] Pharmacist Internal Medicine 03/21/22 08/30/23 Nelia Sullivan, PharmD [address] [place] [phone] Pharmacist Internal Medicine 08/31/23 Laurel Monterroso Wood GetterOil Field Tester 10/27/22 Saige Aguilar 09/26/23 documented as of this encounter
--- OUTSIDE RECORDS SUMMARY | 2024-11-11 10:49 | XMS_ITS | Encounter Summary ---
Author Organization [employer] Address [address] [facility] [address] [place] [address] Care Team Providers Care Licensed Marine Engineer Name Role Phone Radha Jamison DO Primary Care Provider [phone] Abdias Murillo PharmD Unavailable Unavail able Nelia Sullivan PharmD Unavailable [phone] Reason for Visit * Reason Comments Med Refill Encounter Details Date Type Department Care Team (Late st Contact Info) Description 08/01/2023 Refill [facility] [address] [place] [address] Radha Jamison DO [address] [place] [address] Chronic bilateral low back pain, unspecified whether [...] 1:30 PM EDT Office Visit [facility] [address] [place] [address] Jered Aguilera MD [address] [place] [address] 12/06/2024 10:30 AM EDT Medication Management [facility] [address] [place] [address] Nelia Sullivan PharmD [address] [place] [address] 03/13/2025 9:30 AM EST Office Visit [facility] OPTOMETRY [address] [place] [address] Radha Taylor, OD [address] [place] [address] documented as of this encounter Goals Goal [...] documented as of this encounter Care Teams Licensed Marine Engineer Relationship Specialty Start Date End Date Radha Jamison DO [address] [place] [address] PCP - General Family Medicine 01/26/12 Abdias Murillo, KeithD [address] [place] [address] Pharmacist Internal Medicine 03/21/22 08/30/23 Nelia Sullivan PharmD [address] [place] [address] Pharmacist Internal Medicine 08/31/23 Laurel Monterroso Rum Processing OperatorSand Digger 10/27/22 Saige Aguilar 09/26/23 documented as of this encounter
--- OUTSIDE RECORDS SUMMARY | 2024-11-11 10:49 | XMS_ITS | Encounter Summary ---
Author Organization [employer] Address [address] [facility] 7t [place] [address] Care Team Providers Care Finishing Area Supervisor Name Role Phone Radha Jamison DO Primary Care Provider [phone] Abdias Murillo PharmD Unavailable Unavail able Nelia Sullivan PharmD Unavailable [phone] Reason for Visit * Reason Onset Date Comments Durable Medical Equipment 09/08/2022 Encounter Details Date Type Department Care Team (Late st Contact Info) Description 09/08/2022 Telephone [facility] MEDICINE [address] [place] [address] Radha Jamison DO [address] [place] [address] Durable Medical Equipment Social History Tobacco Use [...] is not working. Please contact pt at [phone] documented in this encounter Plan of Treatment Upcoming Encounters Date Type Department Care Team (Late st Contact Info) Description 11/14/2024 1:30 PM EDT Office Visit [facility] MEDICINE [address] [place] [address] Jered Aguilera MD [address] [place] [address] 12/06/2024 10:30 AM EDT Medication Management [facility] MEDICINE [address] [place] [address] Nelia Sullivan PharmD [address] [place] [address] 03/13/2025 9:30 AM EST Office Visit [facility] OPTOMETRY [address] [place] [address] Radha Taylor OD [address] [place] [address] documented as of this encounter Goals Goal [...] documented as of this encounter Care Teams Finishing Area Supervisor Relationship Specialty Start Date End Date Radha Jamison DO [address] [place] [address] PCP - General Family Medicine 01/26/12 Abdias Murillo, PharmD [address] [place] [address] Pharmacist Internal Medicine 03/21/22 08/30/23 Nelia Sullivan, KeithD [address] [place] [address] Pharmacist Internal Medicine 08/31/23 Laurel Monterroso Restaurant HostJuvenile Justice Specialist 10/27/22 Saige Aguilar 09/26/23 documented as of this encounter
--- OUTSIDE RECORDS SUMMARY | 2024-11-11 10:49 | XMS_ITS | Encounter Summary ---
Author Organization [employer] Address [address] [facility] 7t [place] [address] Care Team Providers Care Hand Clerical Verifier Name Role Phone KassandraRadha flores Primary Care Provider [phone] Abdias Murillo PharmD Unavailable Unavail able Nelia Sullivan PharmD Unavailable [phone] Reason for Visit * Reason Onset Date Comments Dental Exam 08/24/2023 Encounter Details Date Type Department Care Team (Late st Contact Info) Description 08/24/[address] [facility] ADULT DENTAL [address] [place] [address] AlanisLibby Barton, DDS [address] [place] [address] Dental Exam Social History Tobacco Use Types [...] Visit [facility] MEDICINE [address] [place] [address] Jered Aguilera MD [address] [place] [address] 12/06/2024 10:30 AM EDT Medication Management [facility] MEDICINE [address] [place] [address] Nelia Sullivan, KeithD [address] [place] [address] 03/13/2025 9:30 AM EST Office Visit [facility] OPTOMETRY [address] [place] [address] Radha Taylor, OD [address] [place] [address] documented as of this encounter Goals Goal [...] as of this encounter Care Teams Hand Clerical Verifier Relationship Specialty Start Date End Date Radha Jamison DO [address] [place] [address] PCP - General Family Medicine 01/26/12 Abdias Murlilo, PharmD [address] [place] [address] Pharmacist Internal Medicine 03/21/22 08/30/23 Nelia Sullivan PharmD [address] [place] [address] Pharmacist Internal Medicine 08/31/23 Laurel Monterroso Revenue Cycle ManagerIt Telecom Technician 10/27/22 Saige Aguilar 09/26/23 documented as of this encounter
--- OUTSIDE RECORDS SUMMARY | 2024-11-11 10:49 | XMS_ITS | Encounter Summary ---
Author Organization [employer] Address [address] [facility] 7t [place] [address] Care Team Providers Care Agriscience Technology Instructor Name Role Phone Radha Jamison DO Primary Care Provider [phone] Abdias Murillo PharmD Unavailable Unavail able Nelia Sullivan PharmD Unavailable [phone] Reason for Visit * Reason Comments Med Refill Encounter Details Date Type Department Care Team (Late st Contact Info) Description 12/21/2022 Refill [facility] MEDICINE [address] [place] [address] Radha Jamison DO [address] [place] [address] Chronic bilateral low back pain, [...] Description 11/14/2024 1:30 PM EDT Office Visit [facility] MEDICINE [address] [place] [address] Jered Aguilera MD [address] [place] [address] 12/06/2024 10:30 AM EDT Medication Management [facility] MEDICINE [address] [place] [address] Nelia Sullivan, KeithD [address] [place] [address] 03/13/2025 9:30 AM EST Office Visit [facility] OPTOMETRY [address] [place] [address] Radha Taylor, OD [address] [place] [address] documented as of this encounter Goals Goal [...] documented as of this encounter Care Teams Agriscience Technology Instructor Relationship Specialty Start Date End Date Radha Jamison DO [address] [place] [address] PCP - General Family Medicine 01/26/12 Abdias Murillo, KeithD [address] [place] [address] Pharmacist Internal Medicine 03/21/22 08/30/23 Nelia Sullivan PharmD [address] [place] [address] Pharmacist Internal Medicine 08/31/23 Laurel Monterroso Green Chain OffbearerQuick Sketch Artist 10/27/22 Saige Aguilar 09/26/23 documented as of this encounter
--- OUTSIDE RECORDS SUMMARY | 2024-11-11 10:49 | XMS_ITS | Encounter Summary ---
Author Organization [employer] Address [address] [facility] 7[address] [place] [address] Care Team Providers Care Electric Welder Helper Name Role Phone Radha Jamison DO Primary Care Provider [phone] Nelia Sullivan PharmD Unavailable [phone] Reason for Visit * Reason Comments Med Refill Encounter Details Date Type Department Care Team ([facility] st Contact Info) Description 05/17/2024 Refill [facility] MEDICINE [address] [place] [address] Radha Jamison DO [address] [place] [address] Chronic bilateral low back pain, unspecified whether [...] the past 12 months, has t he [employer], gas, oil or water [employer] threatened to shut off services in your [...] Description 11/14/2024 1:30 PM EDT Office Visit [facility] MEDICINE [address] [place] [address] Jered Aguilera MD [address] [place] [address] 12/06/2024 10:30 AM EDT Medication Management [facility] MEDICINE [address] [place] [address] Nelia Sullivan, PharmD [address] [place] [address] 03/13/2025 9:30 AM EST Office Visit [facility] OPTOMETRY [address] [place] [address] Radha Taylor, OD [address] [place] [address] documented as of this encounter Goals Goal [...] as of this encounter Care Teams Electric Welder Helper Relationship Specialty Start Date End Date Radha Jamison DO [address] [place] [address] PCP - General Family Medicine 01/26/12 Nelia Sullivan, PharmD [address] [place] [address] Pharmacist Internal Medicine 08/31/23 Laurel Monterroso Plastic CutterEarth Observations Chief Scientist 10/27/22 Saige Aguilar 09/26/23 documented as of this encounter
--- OUTSIDE RECORDS SUMMARY | 2024-11-11 10:49 | XMS_ITS | Encounter Summary ---
Author Organization [employer] Address [address] [facility] 7t [place] [address] Care Team Providers Care Meal Cooker Name Role Phone Radha Jamison DO Primary Care Provider [phone] Abdias Murillo PharmD Unavailable Unavail able Nelia Sullivan PharmD Unavailable [phone] Reason for Visit * Reason Comments Med Refill Encounter Details Date Type Department Care Team (Late st Contact Info) Description 06/06/2023 Refill [facility] [address] [place] [address] Radha Jamison DO [address] [place] [address] Chronic bilateral low back pain, unspecified whether [...] Description 11/14/2024 1:30 PM EDT Office Visit [facility] MEDICINE [address] [place] [address] Jered Aguilera MD [address] [place] [address] 12/06/2024 10:30 AM EDT Medication Management [facility] MEDICINE [address] [place] [address] Nelia Sullivan, KeithD [address] [place] [address] 03/13/2025 9:30 AM EST Office Visit [facility] OPTOMETRY [address] [place] [address] Radha Taylor, OD [address] [place] [address] documented as of this encounter Goals Goal [...] documented as of this encounter Care Teams Meal Cooker Relationship Specialty Start Date End Date Radha Jamison DO [address] [place] [address] PCP - General Family Medicine 01/26/12 Abdias Murillo, KeithD [address] [place] [address] Pharmacist Internal Medicine 03/21/22 08/30/23 Nelia Sullivan PharmD [address] [place] [address] Pharmacist Internal Medicine 08/31/23 Laurel Monterroso Manager NeonatalUnder Cutter 10/27/22 Saige Aguilar 09/26/23 documented as of this encounter
--- OUTSIDE RECORDS SUMMARY | 2024-11-11 10:49 | XMS_ITS | Clinical Summary ---
Author Organization [employer] Address [address] [place] [address] Care Team Providers Care Postal Worker Name Role Phone DenniseRadha broussard Primary Care Provider [phone] Nelia Sullivan PharmD Unavailable [phone] Allergies Active Allergy Reactions Criticality Noted Date Comments Furosemide Rash Low 02/01/2024 Latex Rash High 07/26/2023 Naproxen Hives,Palpitations High 07/26/2023 Medications * This document contains information received from the source organization and may not represent a complete record from that organization. clopidogrel (Plavix) 75 MG tablet Take 1 tablet by mouth at bed time. Active NIFEdipine XL (Procardia XL) 90 MG 24 hr tabletIndications: Essential hypertension Take 1 tablet (90 mg) by mouth Once per day. Do not crush, chew, or split. 90 tablet 3 Active pioglitazone (Actos) 15 MG tabletIndications: Type 2 diabetes mellitus with hyperglycemia, with long-term current use of insulin (HCC) TAKE 1 TABLET BY MOUTH EVERY MORNING [...] 30 mg by mouth in the morning. 024 Active Alcohol Swabs (Alcohol Prep) 70 % pads USE 1 THREE TIMES DAILY AND NEEDED 100 each Active Continuous Glucose [employer] Manager (FreeStyle Jenn 3 [place]) device 1 each 3 times daily. Use [...] each 025 2025 Active TRUEplus Lancets 33G [place] [facility] TEST BLOOD SUGAR UP TO THREE TIMES DAILY DIRECTED 100 each Active empagliflozin-metF ORMIN (Synjardy) 12.5-1000 MG Take 1 tablet by mouth with breakfast and with evening meal. 60 tablet 025 2025 Active Asmanex HFA 100 MCG/ACT aerosol INHALE 2 PUFFS BY MOUTH TWICE DAILY RINSE MOUTH AFTER USING. 13 g 025 Active naloxone (Narcan) 4 mg/0.1 mL nasal sprayIndications:C hronic bilateral low back pain, unspecified whether sciatica present FOR SUSPECTED OPIOID OVERDOSE. SPRAY 0.1mL IN ONE NOSTRIL. REPEAT IN ALTERNATE NOSTRIL 2-3 MINUTES IF NEEDED. SEEK MEDICAL ATTENTION IMMEDIATELY EVEN IF PATIENT RESPONDS. 2 each 3 025 Active omeprazole (PriLOSEC) [address] capsule TAKE 2 CAPSULES BY MOUTH TWICE DAILY IN THE MORNING AND EVENING WITH FOOD 360 capsule 025 Active acetaminophen (Tylenol 8 Hour) 650 MG ER tablet Take 1 tablet (650 mg) by mouth every 8 (eight) hours. 100 tablet 2 025 2025 Active escitalopram (Lexapro) 20 MG tabletIndications: Depression, unspecified depression type TAKE 1 TABLET BY MOUTH EVERY EVENING 30 tablet 5 025 Active amitriptyline (Elavil) 50 MG tabletIndications: Other chronic pain TAKE 1 TABLET BY MOUTH AT BEDTIME 30 tablet 3 025 Active Ferrous Sulfate (iron) 325 (65 Fe) MG tabletIndications: Anemia, unspecified type TAKE 1 TABLET BY MOUTH TWICE DAILY IN THE MORNING AND AT BEDTIME 180 tablet 3 Active docusate sodium (Colace) 100 MG capsuleIndications :Anemia, unspecified type TAKE 1 CAPSULE BY MOUTH TWICE DAILY IN THE MORNING AND IN THE EVENING FOR CONSTIPATION 180 capsule 3 025 Active ezetimibe (Zetia) 10 MG tablet Take 1 tablet (10 mg) by mouth Once per day. 90 tablet 1 025 Active rosuvastatin (Crestor) 40 MG tablet Take 1 tablet (40 mg) by mouth at bedtime. 90 tablet 1 025 Active aspirin (Aspirin Low Dose) 81 [...] IN EACH NOSTRIL ONCE DAILY 48 g Active Diclofenac Sodium 1 % gel APPLY 2 GRAMS TOPICALLY TO AFFECTED AREA(S) 4 TIMES A DAY IN THE MORNING, AT NOON, IN THE EVENING, AND AT BEDTIME NEEDED FOR PAIN 200 g Active insulin pen needle (Pentips Generic Pen [place]) 32G x 4 mm miscIndications:Ty pe 2 diabetes mellitus with hyperglycemia, with long-term current use of insulin (HCC) Use as instructed to inject insulin once daily 100 each 025 Active Semaglutide,0.25 or 0.5MG/DOS, (Ozempic, 0.25 or 0.5 MG/DOSE,) 2 MG/3ML solution pen-injectorIndica tions:Type 2 diabetes mellitus with hyperglycemia, with long-term current use of insulin (HCC) Inject 0.5 mg under the skin 1 (one) time per week. 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 90 tablet 1 025 2025 Active Ventolin HFA 108 (90 Base) MCG/ACT inhalerIndications :Mild persistent asthma without complication INHALE 2 PUFFS BY MOUTH EVERY 6 HOURS NEEDED FOR WHEEZING OR SHORTNESS OF BREATH 18 g 2 025 Active Blood Pressure Monitoring (Omron 3 Series BP Monitor) deviceIndications: Essential hypertension USE TO CHECK BLOOD PRESSURE ONCE A DAY 1 each 025 Active lidocaine (Lidoderm) 5 % patch APPLY 1 TO 2 PATCHES TOPICALLY TO SKIN, LEAVE ON FOR 12 HOURS AND OFF FOR 12 HOURS DIRECTED 60 patch 3 025 Active mirtazapine (Remeron) 45 MG tabletIndications: Mood disorder (CMS/HCC) TAKE 1 TABLET BY MOUTH AT BEDTIME 30 tablet 3 025 Active gabapentin (Neurontin) 400 MG capsule Take 400 mg by mouth at bedtime. 025 Active hydrALAZINE (Apresoline) 25 MG tablet Take 25 mg by mouth 3 times daily. 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 Increase as directed to max of 32 units per day 15 mL 2 Active Blood Pressure Monitoring (Omron 3 Series BP Monitor) deviceIndications: Essential hypertension Use as directed to check BP once daily 1 each 024 2024 Discontinued(R eorder (will not trigger notification to Pharmacy)) nitroglycerin (Nitrostat) 0.[address] 1 tablet (0.4 mg) under the tongue every 5 (five) minutes if needed for chest pain. 30 tablet 024 2024 Discontinued(M ed list cleanup (will not trigger notification to Pharmacy)) lidocaine (Lidoderm) 5 % patch Apply 1-2 patches topically Once per day. Remove & discard patch within 12 hours or as directed by MD. 60 patch 3 2024 Discontinued baclofen (Lioresal) 10 MG tablet Take 1 tablet (10 mg) by mouth if needed in the morning, at noon, and at bedtime for muscle spasms. 60 tablet 3 025 2024 Discontinued(M ed list cleanup (will not trigger notification to Pharmacy)) nicotine polacrilex (Commit) 2 MG lozenge Dissolve 1 lozenge, as directed, every 1-2 hours as needed for cravings. Max 20 lozenges per 24 hours. 77 lozenge 5 025 2024 Discontinued(M ed list cleanup (will not trigger notification to Pharmacy)) albuterol 108 (90 Base) MCG/ACT inhalerIndications :Mild persistent asthma without complication Inhale 2 puffs every 6 (six) hours if needed for wheezing. 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 025 2024 Discontinued(R eorder (will not trigger notification to Pharmacy)) varenicline (Chantix) 1 MG tabletIndications: Tobacco dependence Take 1 tablet (1 mg) by mouth 2 times daily. Take with full glass of water. 56 tablet 4 025 2024 Discontinued(P atient refused) gabapentin (NEURONTIN) 400 MG tabletIndications: Chronic bilateral low back pain, unspecified whether sciatica present Take 1 tablet (400 mg) by mouth at bedtime. 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 10/03/2024 Assessment [...] B vaccine -pap wnl May 2014 with PAINTER PLATE, advised schedule f/u, contact info given -mammo [...] will meet w/ HIM RN re: [employer] Obstructive sleep apnea 12/04/2014 Tobacco dependence [...] metformin and actos as rx'd -referred to [facility] for CTDM -cont regular FS monitoring [...] the day and to continue care w ribbon winder and PCP ------ Addendum : EMT came and pick up driver pt but once she was taken to ambulance pt decide not to go to ED and signed leave AMA 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 05/04/2020 03/18/2022 Encounters Date Type Department Care Team Description 11/08/2024 Telephone [facility] [address] [place] [address] Patricia Rinaldi, PharmD 11/05/2024 10:00 AM EDT Office Visit [facility] [address] [place] [address] Ben, Marita, OD Type 2 diabetes mellitus with hyperglycemia, with long-term current use of insulin (CMS/[facility]) (Primary Dx) 11/05/2024 Telephone [facility] [address] [place] [address] Nelia Sullivan, PharmD 11/05/2024 Travel 10/27/2024 Refill [facility] [address] [place] [address] Radha Jamison DO Mood disorder (CMS/HCC) 10/25/2024 Refill [facility] [address] [place] [address] Radha Jamison DO 10/24/2024 Refill [facility] [address] [place] [address] Radha Jamison DO Essential hypertension 10/24/2024 Orders Only GENERIC EXTERNAL DATA DEPARTMENT Provider, Generic External Data 10/21/2024 Refill [facility] [address] [place] [address] Radha Jamison DO Mild persistent asthma without complication 10/18/2024 Patient Outreach [facility] [address] [place] [address] Radha Jamison DO Transition Of Care (Tcm) (HDF scheduled) 10/15/2024 Orders Only GENERIC EXTERNAL DATA DEPARTMENT Provider, Generic External Data 10/07/2024 Telephone [facility] [address] [place] [address] Radha Jamison DO Nurse Triage 10/03/2024 9:30 AM EDT Office Visit [facility] [address] [place] [address] Vickie Penaloza MD Type 2 diabetes mellitus with hyperglycemia, with long-term current use of insulin (CMS/[facility]) (Primary Dx); Splenic infarct; 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 ([facility]/HCC); Chronic bilateral low back pain, unspecified whether sciatica present 10/03/2024 Travel 10/02/2024 Telephone [facility] [address] [facility] [place] [address] Radha Jamison DO chart prep 10/02/2024 Refill [facility] [address] [place] [address] Radha Jamison DO Mood disorder (CMS/HCC) 10/01/2024 Refill [facility] [address] [place] [address] Radha Jamison DO Hypertension, unspecified type 09/24/2024 Orders Only GENERIC EXTERNAL DATA DEPARTMENT Provider, Generic External Data 09/24/2024 Travel 09/22/2024 Refill [facility] [address] [place] [address] Radha Jamison DO 09/19/2024 Telephone [facility] [address] [place] [address] Radha Jamison DO Nurse Triage 09/19/2024 Telephone [facility] [address] [place] [address] Radha Jamison DO Nurse Triage 09/11/2024 Patient Outreach [facility] [address] [place] [address] Radha Jamison DO Transition Of Care (Tcm) (HDF- Scheduled ) 09/10/2024 Refill [facility] [address] [place] [address] Radha Jamison DO 09/09/2024 Refill [facility] [address] [place] [address] Radha Jamison DO Hypertension, unspecified type 09/03/2024 Travel 09/02/2024 Patient Outreach [facility] [address] [place] [address] Radha Jamison DO Transition Of Care (Tcm) (HDF- Unscheduled LVM ) 09/02/2024 Telephone [facility] [address] [place] [address] Patricia Rinaldi, KeithD 08/23/2024 Telephone [facility] [address] [place] [address] Radha Jamison DO Appointment Request 08/13/2024 Travel from Last 3 Months Immunizations Immunization Administration Dates Next Due Influenza, IIV3, injectable 02/20/2009 Influenza, seasonal, injectable, preservative fr ee 11/18/2013 Pfizer Covid-19 Vaccine 12+ 10/02/2020 Pneumococcal Polysaccharide PPSV23 11/18/2013, Social History Tobacco Use Types Packs/Day Years Used Date Smoking Tobacco: Every Day Cigarettes 1 45.2 Started: 08/31/1979 Passive Smoke Exposure: Current Smokeless Tobacco: Never Tobacco Cessation:Ready to Q uit: No; Counseling Given: Yes Alcohol Use Standard Drinks/Week [...] Sign Reading Time Taken Comments Blood Pressure 138/64 11/05/2024 11:12 AM EDT Pulse 82 10/03/2024 9:33 AM [...] 1:30 PM EDT Office Visit [facility] [address] [place] [address] Jered Aguilera MD [address] [place] [address] 12/06/2024 10:30 AM EDT Medication Management [facility] [address] [place] [address] Nelia Sullivan, PharmD [address] [place] [address] 03/13/2025 9:30 AM EST Office Visit [facility] [address] [place] [address] Radha Taylor, OD [address] [place] [address] Health Maintenance Due Date Last Done Comments [...] 10/03/2024 SDOH Screening 10/03/2025 10/03/2024 Tobacco Screening 11/05/2025 11/05/2024 HIV Screening Completed 08/08/2022, 10/01/2021 Hepatitis C [...] Procedure Name Priority Date/Time Associated Diagnosis Comments LIPASE Routine 10/24/2024 12:49 AM EDT BASIC METABOLIC PANEL Routine 10/24/2024 12:49 AM EDT HEPATIC FUNCTION PANEL Routine 10/24/2024 12:49 AM EDT CBC WITH AUTO DIFFERENTIAL Routine 10/24/2024 12:49 [...] with long-term current use of insulin (CMS/HCC) LIPID PANEL, STANDARD Routine 07/24/2024 10:41 AM EDT ALBUMIN, RANDOM [...] Blood Count 8.2 4.8 - 10.8 X10*3/uL [facility] Red Blood Count 3.57(L) 4.20 - 5.50 X10*6/uL [facility] Hemoglobin 10.5(L) 12.0 - 16.0 g/dl [facility] Hematocrit 30.8(L) 37.0 - 47.0 % [facility] Mean Corpuscular Volume 86.3 80.0 - 98.0 fL [facility] Mean Corpuscular Hemoglobin 29.4 27.0 - 33.0 pg [facility] Mean Corpuscular HGB Conc 34.1 31.0 - 35.0 g/dl [facility] Red Cell Distribution Width 14.3 11.0 - 16.0 % [facility] Platelet Count 287 160 - 400 X10*3/uL [facility] Mean Platelet Volume 9.3(L) 9.4 - 12.3 fL [facility] Neutrophils Percent Auto 67.2 45 - 73 % [facility] Imm Gran Pct Auto 0.4 0.0 - 0.4 % [facility] Lymphocytes Percent Auto 22.4 20 - 40 % [facility] Monocytes Percent Auto 6.0 2 - 11 % [facility] Eosinophils Percent Auto 3.5 0 - 4 % [facility] Basophils Percent Auto 0.5 0 - 2 % [facility] NRBC Pct Auto 0.0 0.0 - 0.2 /100WBC [facility] Neutrophils Absolute Auto 5.5 2.0 - 8.3 x10*3/uL [facility] Imm Gran Abs Auto 0.03 0.00 - 0.03 X10*3/uL [facility] Lymphocytes Absolute Auto 1.8 1.2 - 4.9 X10*3/uL [facility] Monocytes Absolute Auto 0.5 0.1 - 1.2 X10*3/uL [facility] Eosinophils Absolute Auto 0.3 0.0 - 0.4 X10*3/uL [facility] Basophils Absolute Auto 0.0 0.0 - 0.2 X10*3/uL [facility] NRBC Abs Auto 0.000 0.0 - 0.012 X10*3/uL [facility] 10/24/2024 12:4 9 AM EDT 10/24/2024 12:51 AM EDT Generic External Data Provider LAB BLOOD ORDERAB LES Final Result Performing Organization Address City/[facility]/ZIP Co de Phone Number [facility] [address] [place] [phone] * Lipase (10/24/2024 12:49 AM EDT) Pathologist [facility] Lipase 13 8 - 78 U/L [facility] 10/24/2024 12:4 9 AM EDT 10/24/2024 12:51 AM EDT Generic External Data Provider LAB BLOOD ORDERAB LES Final Result Performing Organization Address City/[facility]/ZIP Co de Phone Number [facility] [address] [place] [phone] * (ABNORMAL) Hepatic Function Panel (10/24/2024 12:49 AM EDT) Bilirubin, Total 0.2 0.0 - 1.0 mg/dL [facility] Bilirubin, Direct <0.2 0.0 - 0.5 mg/dL [facility] Aspartate Amino Transferase 9 5 - 31 U/L [facility] Alanine Aminotransferase 6 0 - 31 U/L [facility] Total Protein 5.6(L) 6.5 - 8.0 g/dL [facility] Albumin Level 3.0(L) 3.5 - 5.0 g/dL [facility] Alkaline Phosphatase 94 39 - 117 U/L [facility] 10/24/2024 12:4 9 AM EDT 10/24/2024 12:51 AM EDT us Generic External Data Provider LAB BLOOD ORDERAB LES Final Result [facility] [address] [place] [phone] * (ABNORMAL) Basic Metabolic Panel (10/24/2024 12:49 AM EDT) Only the most recent of2 resultswithin the time period is included. Sodium 141 135 - 145 mmol/L [facility] Potassium 4.3 3.3 - 5.1 mmol/L [facility] Chloride 108 96 - 108 mmol/L [facility] Carbon Dioxide 25 22 - 29 mmol/L [facility] Anion Gap 12 12 - 20 [facility] Urea Nitrogen (BUN) 25(H) 9 - 16 mg/dL [facility] Creatinine, Serum 1.12 0.5 - 1.4 mg/dL [facility] Creatinine Clr Calc Pharmacy 47.8 [facility] Comment:Provided height and weight: 160.02 cm,66.9 kg.eGFR (calculated from the MDRD study equation) and eCrCl(calculated from the Cockcroft-Gault equation) are based ondifferent parameters and may not yield comparable results.If eCrCl result is absurd, please check patient'sheight/weight. Estimated Glomerular Filt Rate 49 [facility] Comment:Chronic Kidney Disea se: Estimated GFR < 60 mL/min/1.34a9Heklcq Kidney Disease: Estimated GFR < 15 mL/min/1.73m2 Glucose 238(H) 60 - 115 mg/dL [facility] Calcium 8.2(L) 8.4 - 10.2 mg/dL [facility] 10/24/2024 12:4 9 AM EDT 10/24/2024 12:51 AM EDT us Generic External Data Provider LAB BLOOD ORDERAB LES Final Result Performing Organization Address City/State/[facility] Co de Phone Number [facility] [address] [place] [phone] * [facility] US Carotid Artery Duplex Bilateral (10/15/2024 1:19 PM EDT) 10/15/2024 1:19 PM EDT Narrative [facility] - 10/15/2024 2:54 PM EDT [address] [address] Ultrasound Report Signed Patient: Rocío Hallman MR#: [id number] 087 : 1960 Acct:[id number] Age/Sex: 63 / F ADM Date: 10/15/24 Loc: [facility] [place] [facility]: Alan Lopez MD Ordering Physician: Caleb Aragon MD Date of Service: 10/15/24 Procedure(s): US carotid duplex BI Accession Number(s): [id number] cc: [facility]; Caleb Aragon MD Reason for Exam: High-grade [...] 10/15/24 1451 DD/ 1319 TD/TT: 10/15/24 1342 Long Chain Dyeing Machine Operator: Procedure Note Donotuseinterpreter, Image - 10/15/[address] [address] Ultrasound Report Signed Patient: Servando Hallman#: [id number] : 2Acct:[id number] Age/Sex: 63 / FADM Date: 10/15/24 Loc: [facility] [place] [facility]: Alan Lopez MD Ordering Physician: Caleb Aragon MD Date of Service: 10/15/24 Procedure(s): US carotid duplex BI Accession Number(s): [id number] cc: [facility]; Caleb Aragon MD Reason for Exam: High-grade [...] 10/15/24 1451 DD/ 1319 TD/TT: 10/15/24 1342 Long Chain Dyeing Machine Operator: us [facility] External Provider CV VASC ULAR PROCEDURES Final Result Performing Organization Address City/State/[facility] Co de Phone Number [facility] [address] [place] [phone] * CTA Head Neck w/ and w/o Contrast (10/15/2024 6:06 AM EDT) Anatomical Region Laterality Modality Head, Neck Computed Tomogra phy 10/15/2024 6:06 AM EDT Narrative 10/15/2024 6:08 AM EDT [place] [address] [address] Scan Report Signed with Addenda Patient: Rocío Hallman MR#: [id number] 087 : 1960 Acct:[id number] Age/Sex: 63 / F ADM Date: 10/15/24 Loc: .ED Attending Dr: Ordering Physician: Cornelia Clark DO Date of Service: 10/15/24 Procedure(s): CT angio head neck Accession Number(s): [id number] cc: Corneila Clark DO; [facility] Report Number: [id number]: Total DLP = 1340.00 mGy-cm ADDENDUM This document has been electronically signed by: Amanda Casarez MD on 10/15/2024 06:06:25 ADDENDUM: This report was discussed with Cornelia Clark MD on Oct 15, 2024 06:09:00 EDT. This document has been electronically signed by: Yas Srivastava on 10/15/2024 06:09:58 Addendum Dictated By: Amanda Casarez MD Addendum Signed By: <Electronically signed by Amanda Casarez MD in OV> 09/02/25 0610 Addendum Cosigned By: DD/ /09/605 TD/TT: [...] signed by Amanda Casarez MD in OV> 10/15/24606 DD/ 5 TD/TT: 10/15/24605 Long Chain Dyeing Machine Operator: Procedure Note Donotuseinterpreter, Image - 10/15/[address] [place] [address] [address] Scan Report Signed with Addenda Patient: Rocío HallmanMR#: [id number] 087 : 1960cct:[id number] Age/Sex: 63 / FADM Date: 10/15/24 Loc: .ED Attending Dr: Ordering Physician: Cornelia Clark DO Date of Service: 10/15/24 Procedure(s): CT angio head neck Accession Number(s): [id number] cc: Cornelia Clark DO; [facility] Report Number: [id number]: Total DLP = 1340.00 mGy-cm ADDENDUM This document has been electronically signed by: Amanda Casarez MD on 10/15/2024 06:06:25 ADDENDUM: This report was discussed with Cornelia Clark MD on Oct 15, 2024 06:09:00 EDT. This document has been electronically signed by: Yas Srivastava on 10/15/2024 06:09:58 Addendum Dictated By: Amanda Casarez MD Addendum Signed By: <Electronically signed by Amanda Casarez MDin OV> 10/15/24609 Addendum Cosigned By: DD/ /09/605 TD/TT: 10/15/2404/09/608 [...] 10/15/24 0607 DD/ 06 TD/TT: 10/15/24 06 Long Chain Dyeing Machine Operator: [facility] External Provider IMG CT PROCEDURES Edited Result - Final * XR Chest 1 View (10/15/2024 4:29 AM EDT) Anatomical Region Laterality Modality Chest Radiographic [place] 10/15/2024 4:29 AM EDT Narrative 10/15/2024 4:30 AM EDT [address] [address] XRay Report Signed Patient: Rocío Hallman MR#: [id number] 087 : 1960 Acct:[id number] Age/Sex: 63 / F ADM Date: 10/15/24 Loc: .ED Attending Dr: Ordering Physician: Cornelia Clark DO Date of Service: 10/15/24 Procedure(s): XR chest 1V Accession Number(s): [id number] cc: Cornelia Clark DO; [facility] CLINICAL HISTORY: chest pain 1 view chest [...] by Stan Corona MD in OV> 10/15/24 0430 DD/ 8 TD/TT: 10/15/24428 Long Chain Dyeing Machine Operator: Procedure Note Donotuseinterpreter, Image - 10/15/[address] [address] XRay Report Signed Patient: Rocío HallmanMR#: [id number] 087 : 2Acct:[id number] Age/Sex: 63 / FADM Date: 10/15/24 Loc: HO.ED Attending Dr: Ordering Physician: Cornelia Clark DO Date of Service: 10/15/24 Procedure(s): XR chest 1V Accession Number(s): [id number] cc: Cornelia Clark DO; [facility] CLINICAL HISTORY: chest pain 1 view chest [...] in OV> 10/15/24429 DD/ 8 TD/TT: 10/15/24428 Long Chain Dyeing Machine Operator: [facility] External Provider IMG XR PROCEDURES Edited Result - Final * High Sensitivity Troponin I (10/15/2024 2:37 AM EDT) [facility] TROPONIN I HIGH SENSITIVITY 7.6 <3.5 - 17.0 ng/L [facility] Comment:The Ibrahim high sens itivity Troponin-I results should beused in conjunction with other diagnostic information suchas ECG, clinical observations and information, and patientsymptoms to aid in the diagnosis of [place]. 10/15/2024 2:37 AM EDT 10/15/2024 2:41 AM EDT Generic External Data Provider LAB BLOOD ORDERAB LES Final Result [facility] [address] [place] [phone] * Magnesium (10/15/2024 2:37 AM EDT) [facility] Magnesium 2.0 1.6 - 2.6 mg/dL [facility] 10/15/2024 2:37 AM EDT 10/15/2024 2:41 AM EDT us Generic External Data Provider LAB BLOOD ORDERAB LES Final Result [facility] [address] [place] [phone] [phone] * (ABNORMAL) Comprehensive Metabolic Panel (10/15/2024 2:37 AM EDT) Sodium 140 135 - 145 mmol/L [facility] Potassium 3.9 3.3 - 5.1 mmol/L [facility] Chloride 107 96 - 108 mmol/L [facility] Carbon Dioxide 25 22 - 29 mmol/L [facility] Anion Gap 12 12 - 20 [facility] Urea Nitrogen (BUN) 23(H) 9 - 16 mg/dL [facility] Creatinine, Serum 1.09 0.5 - 1.4 mg/dL [facility] Creatinine Clr Calc Pharmacy 43.7 [facility] Comment:Provided height and weight: 152.4 cm,61.235 kg.eGFR (calculated from the MDRD study equation) and eCrCl(calculated from the Cockcroft-Gault equation) are based ondifferent parameters and may not yield comparable results.If eCrCl result is absurd, please check patient'sheight/weight. Estimated Glomerular Filt Rate 51 [facility] Comment:Chronic Kidney Disea se: Estimated GFR < 60 mL/min/1.47s8Xuyyfy Kidney Disease: Estimated GFR < 15 mL/min/1.73m2 Glucose 399(HH) 60 - 115 mg/dL [facility] Comment:Critical value for t est(s): GLUCR Results called to selvin back by: CAMELIA Person calling: VYASRID Date: [id number] Calcium 8.2(L) 8.4 - 10.2 mg/dL [facility] Bilirubin, Total 0.2 0.0 - 1.0 mg/dL [facility] Aspartate Amino Transferase 14 5 - 31 U/L [facility] Alanine Aminotransferase 7 0 - 31 U/L [facility] Total Protein 5.5(L) 6.5 - 8.0 g/dL [facility] Albumin Level 2.7(L) 3.5 - 5.0 g/dL [facility] Alkaline Phosphatase 97 39 - 117 U/L [facility] 10/15/2024 2:37 AM EDT 10/15/2024 2:41 AM EDT us Generic External Data Provider LAB BLOOD ORDERAB LES Final Result [facility] [address] [place] [phone] * (ABNORMAL) POCT Glucose (10/03/2024 9:39 AM EDT) Glucose Blood, POC 258(A) 60 - 200 mg/dL QC Media Lot # [id number] Lot# Expiration Date [id number] Blood Capillary blood specimen / Unknown 10/03/2024 9:39 AM EDT us Vickie Syed MD POINT OF CARE TEST EN TER/EDIT ORDERABLES Final Result * (ABNORMAL) POCT HGB A1C (09/03/2024 4:57 PM EDT) Hemoglobin A1C 10.1(A) 4.0 - 5.7 % Blood 09/03/2024 4:57 PM EDT us Radha Jamison DO POINT OF CARE TEST ENTER/BHARGAVI T ORDERABLES Final Result * (ABNORMAL) Lipid Panel, Standard (07/24/2024 10:41 AM EDT) Triglycerides 157(H) <150 mg/dL [facility] Comment:Desirable Triglyceri de: less [...] 190 mg/dL HDL Cholesterol 44 >40 mg/dL [facility] Comment:Desirable HDL: great er than 40 mg/dL Note: This HDL assay may give artificially low results in patients with liver disease. 07/24/2024 10:4 1 AM EDT 07/24/2024 10:41 AM EDT Radha Jamison DO LAB BLOOD ORDERABLES Final R esult [facility] [address] [place] [phone] * (ABNORMAL) Albumin, Random Urine W/Creatinine (05/15/2023 8:20 AM EDT) Creatinine, Urine 105.69 mg/dL [facility] Microalbumin Urine 1,418.0 mg/L [facility] Microalbum Creatinine Ratio Ur 1,341.6(H ) <30 ug/mg cr [facility] Comment:Albumin/Creatinine R atio Reference Ranges: Normal: < 30 ug/mg creatinine Microalbuminuria: 30 - 300 ug/mg creatinineClinical Albuminuria: > 300 ug/mg creatinine Urine (Urine, Random) 05/15/2023 8:20 AM EDT 05/15/2023 8:31 AM EDT Radha Jamison DO LAB URINE ORDERABLES Final R esult [facility] [address] [place] [phone] [phone] * Hepatitis C Antibody with Reflex to HCV RNA,PCR w/Reflex to Genotype, LiPA (08/08/2022 10:44 AM EDT) Hepatitis C Antibody NON-REACT ROMERO NON-REACT ROMERO [facility] [place] [facility] Comment: HCV antibody was non-reactive. There is no laboratory evidence of HCV infection. In most cases, no further action is required. However, if recent HCV exposure is suspected, a test for HCV RNA (test code 24233) is suggested. For additional information, please refer to http://education.Kamida/faq/MER700 (This link is being provided for informational/ educational purposes only.) 08/08/2022 10:4 4 AM EDT 08/08/2022 10:45 AM EDT [facility] - 08/09/2022 7:27 PM EDT FASTING:YES COLLECTION KIT GIVEN TO PATIENT. PATIENT ADVISED TO RETURN. FASTING: YES Radha Shaheen DO LAB BLOOD ORDERABLES Final R esult Performing Organization Address City/[facility]/ZIP Co de Phone Number [facility] [address], [place] [address] [facility] [place] [employer] [address] [place] [address] * HIV-1/2 Antigen and Antibodies, Fourth Generation, with Reflexes (08/08/2022 10:44 AM EDT) HIV Antigen/Antibody, 4th Generation NON-REAC TIVE NON-REAC TIVE [facility] [place] [facility] Comment: HIV-1 antigen and HIV-1/HIV-2 antibodies were [...] purpose. For additional information please refer to http://education.Vantrix/faq/LPW445 (This link is being provided for informational/ [...] BLOOD ORDERABLES Final R esult [facility] [address], [place] [address] [facility] [address] [place] [address] * Mammography Report 1 (10/06/2021 1:35 PM [...] Phone Billing Address Personal/Family Self 1960 [address] [place] [address] [facility] C[facility] * Guarantor: Rocío Hallman Account Type Relation to Patient Date of Phone Billing Address Dental Self [address] [place] [address] * Guarantor: Rocío Hallman Account Type Relation to Patient Date of Phone Billing Address Personal/Family Self [address] [place] [address] * Guarantor: Rocío Hallman Account Type Relation to Patient Date of Phone Billing Address Personal/Family Self [address] [place] [address] * Guarantor: Rocío Hallman Account Type Relation to Patient Date of Phone Billing Address Personal/Family Self [address] [place] [address] Care Teams Postal Worker Relationship Specialty Start Date End Date Radha Jamison DO [address] [place] [address] PCP - General Family Medicine 01/26/12 Nelia Sullivan PharmD [address] [place] [address] Pharmacist Internal Medicine 08/31/23 Laurel Monterroso Director Of Religious LifeCannon Crewmember 10/27/22 Saige Aguilar 09/26/23
--- OUTSIDE RECORDS SUMMARY | 2024-11-11 10:49 | XMS_ITS | Encounter Summary ---
Author Organization [employer] Address [address] [facility] 7t [place] [address] Care Team Providers Care Chief Medical Director Name Role Phone Radha Jamison DO Primary Care Provider +1- [phone] Abdias Murillo PharmD Unavailable Unavail able Nelia Sullivan PharmD Unavailable [phone] Reason for Visit * Reason Comments Med Refill Encounter Details Date Type Department Care Team (Late st Contact Info) Description 08/30/2023 Refill [facility] [address] [place] [address] Radha Jamison DO [address] [place] [address] Chronic bilateral low back pain, unspecified whether [...] Description 11/14/2024 1:30 PM EDT Office Visit [facility] [address] [place] [address] Jered Aguilera MD [address] [place] [address] 12/06/2024 10:30 AM EDT Medication Management [facility] [address] [place] [address] Nelia Sullivan, PharmD [address] [place] [address] 03/13/2025 9:30 AM EST Office Visit [facility] [address] [place] [address] Radha Taylor, OD [address] [place] [address] documented as of this encounter Goals Goal [...] as of this encounter Care Teams Chief Medical Director Relationship Specialty Start Date End Date Radha Jamison DO [address] [place] [address] PCP - General Family Medicine 01/26/12 Abdias Murillo, PharmD [address] [place] [address] Pharmacist Internal Medicine 03/21/22 08/30/23 Nelia Sullivan PharmD [address] [place] [address] Pharmacist Internal Medicine 08/31/23 Laurel Monterroso Medical Assisting Program DirectorEyeglass Lens Grinder 10/27/22 Saige Aguilar 09/26/23 documented as of this encounter
--- OUTSIDE RECORDS SUMMARY | 2024-11-11 10:49 | XMS_ITS | Encounter Summary ---
Author Organization [employer] Address [address] [facility] 7t [place] [address] Care Team Providers Care Breaker Up Machine Operator Name Role Phone Radha Jamison DO Primary Care Provider Abdias Murillo PharmD Unavailable Unavail able Nelia Sullivan PharmD Unavailable Reason for Visit * Reason Comments Med Refill Encounter Details Date Type Department Care Team (Late st Contact Info) Description 01/24/2022 Telephone [facility] [address] [place], [place] [phone] Radha Jamison DO [address] [place] [address] Med Refill Social History Tobacco Use Types [...] Description 11/14/2024 1:30 PM EDT Office Visit [facility] [address] [place] [address] Jered Aguilera MD [address] [place] [address] 12/06/2024 10:30 AM EDT Medication Management [facility] [address] [place] [address] Nelia Sullivan PharmD [address] [place] [address] 03/13/2025 9:30 AM EST Office Visit [facility] [address] [place] [address] Radha Taylor, OD [address] [place] [address] documented as of this encounter Visit Diagnoses Diagnosis Chronic bilateral low back pain, unspecified whether sciatica present documented in this encounter Care Teams Breaker Up Machine Operator Relationship Specialty Start Date End Date Radha Jamison DO [address] [place] [address] PCP - General Family Medicine 01/26/12 Abdias Murillo PharmD [address] [place] [address] Pharmacist Internal Medicine 03/21/22 08/30/23 Nelia Sullivan PharmD [address] [place] [address] Pharmacist Internal Medicine 08/31/23 Laurel Monterroso Assembler ProductConveyor Belt Repairer 10/27/22 Saige Aguilar 09/26/23 documented as of this encounter
--- OUTSIDE RECORDS SUMMARY | 2024-11-11 10:49 | XMS_ITS | Encounter Summary ---
Author Organization [employer] Address [address] [facility] 7t [place] [address] Care Team Providers Care Wealth Management Manager Name Role Phone Radha Jamison DO Primary Care Provider +1- [phone] Nelia Sullivan PharmD Unavailable [phone] Reason for Visit * Reason Comments Med Refill Encounter Details Date Type Department Care Team ([facility] st Contact Info) Description 11/21/2023 Refill [facility] [address] [place], [place] [phone] Radha Jamison DO [address] [place] [address] Chronic bilateral low back pain, unspecified whether [...] Description 11/14/2024 1:30 PM EDT Office Visit [facility] [address] [place] [address] Jered Aguilera MD 230 [place] [address] 12/06/2024 10:30 AM EDT Medication Management [facility] [address] [place] [address] Nelia Sullivan, PharmD 230 [place] [address] 03/13/2025 9:30 AM EST Office Visit [facility] [address] [place] [address] Radha Taylor OD [address] [place] [address] documented as of this encounter Goals Goal [...] documented as of this encounter Care Teams Wealth Management Manager Relationship Specialty Start Date End Date Radha Jamison DO [address] [place] [address] PCP - General Family Medicine 01/26/12 Nelia Sullivan PharmD 230 [place] [address] Pharmacist Internal Medicine 08/31/23 Laurel Monterroso Case Management AssistantEngine Assembly Supervisor 10/27/22 Saige Aguilar 09/26/23 documented as of this encounter
--- OUTSIDE RECORDS SUMMARY | 2024-11-11 10:49 | XMS_ITS | Encounter Summary ---
Author Organization [employer] Address [address] [facility] 7t [place] [address] Care Team Providers Care Mold Mechanic Name Role Phone Radha Jamison DO Primary Care Provider [phone]- [phone] Nelia Sullivan PharmD Unavailable [phone] Reason for Visit * Reason Onset Date Comments Med Refill 05/07/2024 Encounter Details Date Type Department Care Team (Late st Contact Info) Description 05/07/2024 Telephone [facility] [address] [place] [address] Radha Jamison DO [address] [place], [place] [phone] Med Refill Social History Tobacco Use Types [...] the past 12 months, has t he [employer], gas, oil or water company threatened to [...] immediate release tablet To be sent to: [facility] documented in this encounter Plan of Treatment Upcoming Encounters Date Type Department Care Team (Late st Contact Info) Description 11/14/2024 1:30 PM EDT Office Visit [facility] [address] [place] [address] [phone] Jered Aguilera MD [address] [place] [address] 12/06/2024 10:30 AM EDT Medication Management [facility] [address] [place] [address] [phone] Puia, Nelia, PharmD [address] [place] [address] 03/13/2025 9:30 AM EST Office Visit [facility] OPTOMETRY [address] [place] [address] Radha Taylor, OD [address] [place] [address] documented as of this encounter Goals Goal [...] documented as of this encounter Care Teams Mold Mechanic Relationship Specialty Start Date End Date Radha Jamison DO [address] [place] [address] PCP - General Family Medicine 01/26/12 Puia, Nelia, PharmD [address] [place] [address] Pharmacist Internal Medicine 08/31/23 Laurel Monterroso Potato SpotterDrawer Fitter 10/27/22 Saige Aguilar 09/26/23 documented as of this encounter
--- OUTSIDE RECORDS SUMMARY | 2024-11-11 10:49 | XMS_ITS | Encounter Summary ---
Author Organization [employer] Address [address] [facility] 7t [place] [address] Care Team Providers Care Aircraft De Icer Installer Name Role Phone Radha Jamison DO Primary Care Provider [phone]- [phone] Abdias Murillo PharmD Unavailable Unavail able Nelia Sullivan PharmD Unavailable [phone] Reason for Visit * Reason Comments Med Refill Encounter Details Date Type Department Care Team (Late st Contact Info) Description 12/22/2022 Refill [facility] [address] [place] [address] Radha Jamison DO [address] [place] [address] Chronic bilateral low back pain, unspecified whether [...] Description 11/14/2024 1:30 PM EDT Office Visit [facility] [address] [place] [address] Jered Aguilera MD [address] [place] [address] 12/06/2024 10:30 AM EDT Medication Management [facility] [address] [place] [address] Nelia Sullivan, KeithD [address] [place] [address] 03/13/2025 9:30 AM EST Office Visit [facility] OPT[facility] [address] [place] [address] Radha Tyalor, OD [address] [place] [address] documented as of this encounter Goals Goal [...] documented as of this encounter Care Teams Aircraft De Icer Installer Relationship Specialty Start Date End Date Radha Jamison DO [address] [place] [address] PCP - General Family Medicine 01/26/12 Abdias Murillo, KeithD [address] [place] [address] Pharmacist Internal Medicine 03/21/22 08/30/23 Nelia Sullivan PharmD [address] [place] [address] Pharmacist Internal Medicine 08/31/23 Laurel Monterroso Exceptional Children'S TeacherComputer Salesperson Retail 10/27/22 Saige Aguilar 09/26/23 documented as of this encounter
--- OUTSIDE RECORDS SUMMARY | 2024-11-11 10:50 | XMS_ITS | Encounter Summary ---
Author Organization [employer] Address [address] [facility] 7t [place] [address] Care Team Providers Care Brush Painter Name Role Phone Radha Jamison DO Primary Care Provider [phone]- [phone] Abdias Murillo PharmD Unavailable Unavail able Nelia Sullivan PharmD Unavailable [phone] Reason for Visit * Reason Onset Date Comments Appointment Request 03/09/2023 Encounter Details Date Type Department Care Team ([facility] st Contact Info) Description 03/09/2023 Telephone [facility] [address] [place] [address] Radha Jamison DO [address] [place] [address] Appointment Request Social History Tobacco Use Types [...] denied any concerns. Please contact pt at [phone] documented in this encounter Plan of Treatment Upcoming Encounters Date Type Department Care Team (Late st Contact Info) Description 11/14/2024 1:30 PM EDT Office Visit [facility] [address] [place] [address] Jered Aguilera MD [address] [place] [address] 12/06/2024 10:30 AM EDT Medication Management [facility] [address] [place] [address] Nelia Sullivan, PharmD [address] [place] [address] 03/13/2025 9:30 AM EST Office Visit [facility] OPTOM[facility] [address] [place] [address] Radha Taylor, OD [address] [place] [address] documented as of this encounter Goals Goal [...] documented as of this encounter Care Teams Brush Painter Relationship Specialty Start Date End Date Radha Jamison DO [address] [place] [address] PCP - General Family Medicine 01/26/12 Abdias Murillo, PharmD [address] [place] [address] Pharmacist Internal Medicine 03/21/22 08/30/23 Nelia Sullivan PharmD [address] [place] [address] Pharmacist Internal Medicine 08/31/23 Laurel Monterroso Alto SingerGarnett Mechanic 10/27/22 Saige Aguilar 09/26/23 documented as of this encounter
--- OUTSIDE RECORDS SUMMARY | 2024-11-11 10:50 | XMS_ITS | Encounter Summary ---
Author Organization [employer] Address [address] [facility] 7t [place] [address] Care Team Providers Care Rail Bender Name Role Phone DenniseRadha broussard Primary Care Provider [phone]- [phone] Nelia Sullivan PharmD Unavailable [phone] Encounter Details Date Type Department Care Team ([facility] st Contact Info) Description 11/05/2024 Telephone [facility] [address] [place] [address] AnaiiaNelia, PharmD [address] [place] [address] Social History Tobacco Use Types Packs/Day Years [...] Telephone Encounter - Nelia Sullivan PharmD - 11/05/2024 12:48 PM EDT Pharmacy is requesting an updated CDTM referral with a diagnosis of diabetes and hypertension . This is to replace existing referral which will before next appointment. Thank you! documented in this encounter Plan of Treatment Upcoming Encounters Date Type Department Care Team (Late st Contact Info) Description 11/14/2024 1:30 PM EDT Office Visit [facility] [address] [place] [address] Jered Aguilera MD [address] [place] [address] 12/06/2024 10:30 AM EDT Medication Management [facility] [address] [place] [phone] Nelia Sullivan PharmD [address] [place] [address] 03/13/2025 9:30 AM EST Office Visit [facility] OPTOMETRY [address] [place] [address] Radha Taylor, OD [address] [place] [address] documented as of this encounter Goals Goal Patient Goal Type Associated Problems Recent Progress Patient-Stated? Author Record your blood pressure once per day Blood Pressure No Puia Nelia, PharmD Blood Pressure < 140/90 Blood Pressure 138/64(2024 11:12 AM EDT) No Puia Nelia, PharmD Smoking [...] documented as of this encounter Care Teams Rail Bender Relationship Specialty Start Date End Date Radha Jamison DO [address] [place] [address] PCP - General Family Medicine 01/26/12 Puia, Nelia, PharmD [address] [place] [address] Pharmacist Internal Medicine 08/31/23 Laurel Monterroso Billboard PosterMathematical Engineering Technician 10/27/22 Saige Aguilar 09/26/23 documented as of this encounter
--- OUTSIDE RECORDS SUMMARY | 2024-11-11 10:50 | XMS_ITS | Encounter Summary ---
Author Organization [employer] Address 75 [facility] 7t [place] [address] Care Team Providers Care Management Sme Name Role Phone Radha Jamison DO Primary Care Provider [phone]- [phone] Abdias Murillo PharmD Unavailable Unavail able Nelia Sullivan PharmD Unavailable [phone] Reason for Visit * Reason Comments Med Refill Encounter Details Date Type Department Care Team (Late st Contact Info) Description 02/15/2023 Refill [facility] [address] [place] [address] Radha Jamison DO [address] [place] [address] Chronic bilateral low back pain, unspecified whether [...] 1:30 PM EDT Office Visit [facility] 230 [place] [address] Jered Aguilera MD [address] [place] [address] 12/06/2024 10:30 AM EDT Medication Management [facility] [address] [place] [address] Nelia Sullivan, KeithD [address] [place] [address] 03/13/2025 9:30 AM EST Office Visit [facility] OPTOMETRY [address] [place] [address] Radha Taylor, OD [address] [place] [address] documented as of this encounter Goals Goal [...] documented as of this encounter Care Teams Management Sme Relationship Specialty Start Date End Date Radha Jamison DO [address] [place] [address] PCP - General Family Medicine 01/26/12 Abdias Murillo, KeithD [address] [place] [address] Pharmacist Internal Medicine 03/21/22 08/30/23 Nelia Sullivan PharmD [address] [place] [address] Pharmacist Internal Medicine 08/31/23 Laurel Monterroso Vehicle Calibration EngineerGranite Block Paver 10/27/22 Saige Aguilar 09/26/23 documented as of this encounter
--- OUTSIDE RECORDS SUMMARY | 2024-11-11 10:50 | XMS_ITS | Encounter Summary ---
Author Organization [employer] Address [address] [facility] 7t [place] [address] Care Team Providers Care Child Care Name Role Phone ShaheenRadha Primary Care Provider +1- [phone] Nelia Sullivan PharmD Unavailable [phone] Encounter Details Date Type Department Care Team ([facility] st Contact Info) Description 11/08/2024 Telephone [facility] [address] [place] [address] Patricia Rinaldi, PharmD [address] [place] [address] Social History Tobacco Use Types Packs/Day Years [...] Telephone Encounter - Ginna Stephen RN - 11/08/2024 3:40 PM EDT TC placed to pt. And pt. Agrees to r/s to 11/14/24 at 1:30pm with Dr. Ferro * Telephone Encounter - Patricia Rinaldi PharmD - 11/08/2024 12:36 PM EDT Patient reported they will not be able to make HDF appointment on Monday as they have an appointment with cardiology and need to go to [facility] to sign papers for anaesthesia for upcoming procedure. Please follow up with patient to r/s appointment. Thank you documented in this encounter Plan of Treatment Upcoming Encounters Date Type Department Care Team (Late st Contact Info) Description 11/14/2024 1:30 PM EDT Office Visit [facility] [address] [place] [address] Jered Aguilera MD [address] [place] [address] 12/06/2024 10:30 AM EDT Medication Management [facility] [address] [place] [address] Puia, Nelia, PharmD [address] [place] [address] 03/13/2025 9:30 AM EST Office Visit [facility] OPTOMETRY [address] [place] [address] Radha Taylor, OD [address] [place] [address] documented as of this encounter Goals Goal [...] documented as of this encounter Care Teams Child Care Relationship Specialty Start Date End Date Radha Jamison DO [address] [place] [address] PCP - General Family Medicine 01/26/12 Puia, Nelia, PharmD [address] [place] [address] Pharmacist Internal Medicine 08/31/23 Laurel Monterroso Director ClientHydrogen Cell Tender 10/27/22 Saige Aguilar 09/26/23 documented as of this encounter
--- OUTSIDE RECORDS SUMMARY | 2024-11-11 10:50 | XMS_ITS | Encounter Summary ---
Author Organization [employer] Address [address] [facility] 7t [place] [address] Care Team Providers Care Enrollment Consultant Name Role Phone Radha Jamison DO Primary Care Provider Abdias Murillo PharmD Unavailable Unavail able Nelia Sullivan PharmD Unavailable Reason for Visit * Reason Comments Med Refill Encounter Details Date Type Department Care Team ([facility] Contact Info) Description 01/31/2022 Refill [facility]BI[facility] CL[facility]IC [address] [place] [address] Radha Jamison DO 230 [place] [address] Chronic bilateral low back pain, unspecified whether [...] Description 11/14/2024 1:30 PM EDT Office Visit [facility] MEDICINE [address] [place] [address] Jered Aguilera MD 230 [facility] [place] [address] 12/06/2024 10:30 AM EDT Medication Management [facility] MEDICINE [address] [facility] [place] [address] Nelia Sullivan, KeithD 230 [facility] [place] [address] 03/13/2025 9:30 AM EST Office Visit [facility] OPTOMETRY [address] [place] [address] Radha Taylor, OD [address] [place] [address] documented as of this encounter Visit Diagnoses Diagnosis Chronic bilateral low back pain, unspecified whether sciatica present documented in this encounter Care Teams Enrollment Consultant Relationship Specialty Start Date End Date Radha Jamison DO [address] [place] [address] [place] [address] PCP - General Family Medicine 01/26/12 Abdias Murillo, KeithD [address] [place] [address] Pharmacist Internal Medicine 03/21/22 08/30/23 Nelia Sullivan, PharmD [address] [place] [address] Pharmacist Internal Medicine 08/31/23 Laurel Monterroso Continuous Mining Machine Coal MinerSql Ssrs Developer 10/27/22 Saige Aguilar 09/26/23 documented as of this encounter
--- OUTSIDE RECORDS SUMMARY | 2024-11-11 10:50 | XMS_ITS | Encounter Summary ---
Author Organization [employer] Address [address] [facility] 7t [place] [address] Care Team Providers Care Boring And Filling Machine Operator Name Role Phone Radha Jamison DO Primary Care Provider [phone]- [phone] Nelia Sullivan PharmD Unavailable [phone] Reason for Visit * Reason Comments Med Refill Encounter Details Date Type Department Care Team ([facility] st Contact Info) Description 10/30/2023 Refill [facility] MEDICINE [address] [place], [place] [phone] Radha Jamison DO [address] [place] [address] Chronic bilateral low back pain, unspecified whether [...] Description 11/14/2024 1:30 PM EDT Office Visit [facility] MEDICINE [address] [place] [address] Jered Aguilera MD [address] [place] [address] 12/06/2024 10:30 AM EDT Medication Management [facility] MEDICINE [address] [place] [address] Nelia Sullivan, PharmD [address] [place] [address] 03/13/2025 9:30 AM EST Office Visit [facility] OPTOMETRY [address] [place] [address] Radha Taylor OD [address] [place] [address] documented as of this encounter Goals Goal [...] documented as of this encounter Care Teams Boring And Filling Machine Operator Relationship Specialty Start Date End Date Radha Jamison DO [address] [place] [address] PCP - General Family Medicine 01/26/12 Nelia Sullivan PharmD [address] [place] [address] Pharmacist Internal Medicine 08/31/23 Laurel Monterroso Movable Bulkhead InstallerDisability Insurance Hearing Officer 10/27/22 Saige Aguilar 09/26/23 documented as of this encounter
--- OUTSIDE RECORDS SUMMARY | 2024-11-11 10:50 | XMS_ITS | Encounter Summary ---
Author Organization [employer] Address [address] [facility] 7t [place] [address] Care Team Providers Care Drum Drier Name Role Phone Radha Jamison DO Primary Care Provider DelAbdias hardy PharmD Unavailable Unavail able Nelia Sullivan PharmD Unavailable [phone] Reason for Visit * Reason Comments Med Refill Encounter Details Date Type Department Care Team (Late st Contact Info) Description 06/10/2022 Refill [facility] [address] [place] [address] Radha Jamison DO 230 [place] [address] Chronic bilateral low back pain, unspecified whether [...] 1:30 PM EDT Office Visit [facility] [address] [place] [address] Jered Aguilera MD 230 [place] [address] 12/06/2024 10:30 AM EDT Medication Management [facility] [address] [place] [address] Nelia Sullivan PharmD 230 [place] [address] 03/13/2025 9:30 AM EST Office Visit [facility] OPTOMETRY [address] [place] [address] TarkaRadha, OD 267 [place] [address] documented as of this encounter Goals Goal [...] documented as of this encounter Care Teams Drum Drier Relationship Specialty Start Date End Date Radha Jamison DO [address] [place] [address] PCP - General Family Medicine 01/26/12 Abdias Murillo, PharmD [address] [place] [address] Pharmacist Internal Medicine 03/21/22 08/30/23 Nelia Sullivan PharmD [address] [place] [address] Pharmacist Internal Medicine 08/31/23 Laurel Monterroso Supervisor CostumingRoundhouse Firer/Fireman 10/27/22 Saige Aguilar 09/26/23 documented as of this encounter
--- OUTSIDE RECORDS SUMMARY | 2024-11-11 10:50 | XMS_ITS | Encounter Summary ---
Author Organization [employer] Address 75 [facility] 7t [place] [address] Care Team Providers Care Car Salesman Name Role Phone Radha Jamison DO Primary Care Provider Abdias Murillo PharmD Unavailable Unavail able Nelia Sullivan PharmD Unavailable [phone] Reason for Visit * Reason Comments Med Refill Encounter Details Date Type Department Care Team (Late Contact Info) Description 07/20/2022 Refill [facility] [address] [place] [address] Radha Jamison DO [address] [place] [address] Hypertension, unspecified type Social History Tobacco Use [...] EDT Office Visit [facility] MEDICINE [address] [place] [address] Jered Aguilera MD [address] [place] [address] 12/06/2024 10:30 AM EDT Medication Management [facility] MEDICINE [address] [place] [address] Nelia Sullivan PharmD [address] [place] [address] 03/13/2025 9:30 AM EST Office Visit [facility] OPTOMETRY [address] [place] [address] Radha Taylor, OD [address] [place] [address] documented as of this encounter Goals Goal [...] as of this encounter Care Teams Car Salesman Relationship Specialty Start Date End Date Radha Jamison DO [address] [place] [address] PCP - General Family Medicine 01/26/12 Abdias Murillo, PharmD [address] [place] [address] Pharmacist Internal Medicine 03/21/22 08/30/23 Nelia Sullivan, PharmD [address] [place] [address] Pharmacist Internal Medicine 08/31/23 Laurel Monterroso Director StarsProduction Crew Supervisor 10/27/22 Saige Aguilar 09/26/23 documented as of this encounter
--- OUTSIDE RECORDS SUMMARY | 2024-11-11 10:50 | XMS_ITS | Encounter Summary ---
Author Organization [employer] Address [address] [facility] 7t [place] [address] Care Team Providers Care Flake Cutter Operator Name Role Phone Radha Jamison DO Primary Care Provider [phone] Abdias Murilol PharmD Unavailable Unavail able Nelia Sullivan PharmD Unavailable [phone] Reason for Visit * Reason Comments Med Refill Encounter Details Date Type Department Care Team (Late st Contact Info) Description 02/14/2023 Refill [facility] MEDICINE [address] [place] [address] Radha Jamison DO 230 [place] [address] Chronic bilateral low back pain, unspecified whether [...] Office Visit [facility] MEDICINE [address] [place] [address] Jered Aguilera MD 230 [place] [address] 12/06/2024 10:30 AM EDT Medication Management [facility] MEDICINE [address] [place] [address] Nelia Sullivan, KeithD [address] [place] [address] 03/13/2025 9:30 AM EST Office Visit [facility] OPTOMETRY [address] [place] [address] Radha Taylor, OD [address] [place] [address] documented as of this encounter Goals Goal [...] documented as of this encounter Care Teams Flake Cutter Operator Relationship Specialty Start Date End Date Radha Jamison DO [address] [place] [address] PCP - General Family Medicine 01/26/12 Abdias Murillo, KeithD 230 [place] [address] Pharmacist Internal Medicine 03/21/22 08/30/23 Nelia Sullivan PharmD 230 [place] [address] Pharmacist Internal Medicine 08/31/23 Laurel Monterroso Bosom PresserCopy Center Specialist 10/27/22 Saige Aguilar 09/26/23 documented as of this encounter
--- OUTSIDE RECORDS SUMMARY | 2024-11-11 10:50 | XMS_ITS | Encounter Summary ---
Author Organization [email or web address] Address 75 [facility] 7t [place] [address] Care Team Providers Care Conservation Or Heritage Architect Name Role Phone ShaheenRadha Primary Care Provider [phone] Abdias Murillo PharmD Unavailable Unavail able Nelia Sullivan PharmD Unavailable [phone] Reason for Visit * Reason Onset Date Comments Med Refill Appointment 05/15/2022 Re: her appt for today as [id number] @ 10:15 am. & No active phone # at this time. Encounter Details Date Type Department Care Team (Late st Contact Info) Description 05/15/2022 Refill [facility] MEDICINE [address] [place] [address] Abdias Murillo, PharmD Type 2 diabetes mellitus with other specified complication, with long-term current use of insulin ([facility]) Social History Tobacco Use [...] pt regarding her appt for today as [id number] @ 10:15 am. And her phone # is not active at this time. documented in this encounter Plan of Treatment Upcoming Encounters Date Type Department Care Team (Late st Contact Info) Description 11/14/2024 1:30 PM EDT Office Visit [facility] MEDICINE [address] [place] [address] Jered Aguilera MD [address] [place] [address] 12/06/2024 10:30 AM EDT Medication Management [facility] MEDICINE [address] [place] [address] Nelia Sullivan, PharmD 230 [place] [address] 03/13/2025 9:30 AM EST Office Visit [facility] OPTOMETRY [address] [place] [address] TarkaRadha, OD 267 [place] [address] documented as of this encounter Goals Goal Patient Goal Type Associated Problems Recent Progress Patient-Stated? Author Hemoglobin A1c < 7 Result Component 10.1( 5 4:57 PM EDT) No Abdias Murillo, PharmD documented as of this encounter Visit Diagnoses Diagnosis Type 2 diabetes mellitus with other specified complication, with long-term current use of insulin (HCC) documented in this encounter Additional Health Concerns Assessment Noted Time PHQ-9 Depression Total Score: 14 023 12:00 PM EST documented as of this encounter Care Teams Conservation Or Heritage Architect Relationship Specialty Start Date End Date Radha Jamison DO [address] [place] [address] PCP - General Family Medicine 01/26/12 Abdias Murillo, PharmD [address] [place] [address] Pharmacist Internal Medicine 03/21/22 08/30/23 Nelia Sullivan, KeithD [address] [place] [address] Pharmacist Internal Medicine 08/31/23 Laurel Monterroso Computer Science ProfessorSteel Post Installer Supervisor 10/27/22 Saige Aguilar 09/26/23 documented as of this encounter
--- OUTSIDE RECORDS SUMMARY | 2024-11-11 10:50 | XMS_ITS | Encounter Summary ---
Author Organization [employer] Address [address] [facility] 7t [place] [address] Care Team Providers Care General Utility Maintenance Repairer Name Role Phone Radha Jamison DO Primary Care Provider [phone] Abdias Murillo PharmD Unavailable Unavail able Nelia Sullivan PharmD Unavailable [phone] Reason for Visit * Reason Comments Med Refill Encounter Details Date Type Department Care Team (Late st Contact Info) Description 12/20/[address] [facility] MEDICINE [address] [place] [address] Radha Jamison DO [address] [place] [address] Chronic bilateral low back pain, unspecified whether [...] [facility] [address] [place] [address] Jered Aguilera MD [address] [place] [address] 12/06/2024 10:30 AM EDT Medication Management [facility] MEDICINE [address] [place] [address] Nelia Sullivan, KeithD [address] [place] [address] 03/13/2025 9:30 AM EST Office Visit [facility] OPTOMETRY [address] [place] [address] Radha Taylor, OD [address] [place] [address] documented as of this encounter Goals Goal [...] documented as of this encounter Care Teams General Utility Maintenance Repairer Relationship Specialty Start Date End Date Radha Jamison DO [address] [place] [address] PCP - General Family Medicine 01/26/12 Abdias Murillo, KeithD [address] [place] [address] Pharmacist Internal Medicine 03/21/22 08/30/23 Nelia Sullivan PharmD [address] [place] [address] Pharmacist Internal Medicine 08/31/23 Laurel Monterroso Playground AideHand Dry Cleaner 10/27/22 Saige Aguilar 09/26/23 documented as of this encounter
--- OUTSIDE RECORDS SUMMARY | 2024-11-11 10:50 | XMS_ITS | Encounter Summary ---
Author Organization [employer] Address [address] [facility] 7t [place] [address] Care Team Providers Care Hospital Orderly Name Role Phone Radha Jamison DO Primary Care Provider [phone] Abdias Murillo PharmD Unavailable Unavail able Nelia Sullivan PharmD Unavailable [phone] Reason for Visit * Reason Comments Med Refill Encounter Details Date Type Department Care Team (Late st Contact Info) Description 03/14/2023 Refill [facility] MEDICINE [address] [place] [address] Radha Jamison DO [address] [place] [address] Chronic bilateral low back pain, unspecified whether [...] 1:30 PM EDT Office Visit [facility] MEDICINE [address] [place] [address] Jered Aguilera MD [address] [place] [address] 12/06/2024 10:30 AM EDT Medication Management [facility] MEDICINE [address] [place] [address] Nelia Sullivan, KeithD [address] [place] [address] 03/13/2025 9:30 AM EST Office Visit [facility] OPTOMETRY [address] [place] [address] Radha Taylor, OD [address] [place] [address] documented as of this encounter Goals Goal [...] documented as of this encounter Care Teams Hospital Orderly Relationship Specialty Start Date End Date Radha Jamison DO [address] [place] [address] PCP - General Family Medicine 01/26/12 Abdias Murillo, KeithD [address] [place] [address] Pharmacist Internal Medicine 03/21/22 08/30/23 Nelia Sullivan PharmD [address] [place] [address] Pharmacist Internal Medicine 08/31/23 Laurel Monterroso Shoe IronerSerging Machine Operator 10/27/22 Saige Aguilar 09/26/23 documented as of this encounter
== END 2024-11-11 11:06 | disposition home or self-care (01) ==
LOC: HO.HCS 09:52
PROVIDERS: PCP Family Medicine; Visit Provider Internal Medicine Cardiovascular Disease
DX: R94.31 Abnormal electrocardiogram [ECG] [EKG] (principal)
CPT/HCPCS: 93010

== ENCOUNTER → 2024-11-11 09:51 | Outpatient (BNVA) | payer MEDICAID, SELFPAY | PROVIDERS: PCP Family Medicine; Visit Provider Internal Medicine Cardiovascular Disease | DX: I25.10 Atherosclerotic heart disease of native coronary artery without angina pectoris (principal); I1A.0 Resistant hypertension; I73.9 Peripheral vascular disease, unspecified; Z91.148 Patient's other noncompliance with medication regimen for other reason; E11.9 Type 2 diabetes mellitus without complications; E78.5 Hyperlipidemia, unspecified; F17.210 Nicotine dependence, cigarettes, uncomplicated | CPT/HCPCS: 93005; 99212 ==

== ENCOUNTER 2024-12-15 22:33 | Emergency (ER) | payer MEDICAID, SELFPAY ==
[2024-12-15 22:46] VITALS: BP 192/78; PULSE 91; RESP 18; TEMP 36.6; O2SAT 98
[2024-12-15 22:57] VITALS: BP 183/78; BP 200/90; PULSE 100; PULSE 85; RESP 18; TEMP -13.3; TEMP 8.1; O2SAT 99; BMI 28.3
[2024-12-15 23:17] LABS: MANUAL DIFF FLAG NO
[2024-12-15 23:18] LABS: Hematocrit 35.7 % (37.0-47.0); Hemoglobin 11.5 g/dl (12.0-16.0); Imm Gran Abs Auto 0.02 X10*3/uL (0.00-0.03); Imm Gran Pct Auto 0.2 % (0.0-0.4); Lymphocytes Absolute Auto 2.2 X10*3/uL (1.2-4.9); Mean Corpuscular HGB Conc 32.2 g/dl (31.0-35.0); Mean Corpuscular Hemoglobin 28.5 pg (27.0-33.0); Mean Corpuscular Volume 88.6 fL (80.0-98.0); NRBC Abs Auto 0.000 X10*3/uL (0.0-0.012); NRBC Pct Auto 0.0 /100WBC (0.0-0.2); Platelet Count 318 X10*3/uL (160-400); Red Blood Count 4.03 X10*6/uL (4.20-5.50); White Blood Count 8.1 X10*3/uL (4.8-10.8)
[2024-12-15 23:37] LABS: Alanine Aminotransferase < 6 U/L (0-31); Albumin Level 3.0 g/dL (3.5-5.0); Alkaline Phosphatase 93 U/L (39-117); Anion Gap 11 (12-20); Aspartate Amino Transferase 16 U/L (5-31); Blood Urea Nitrogen 16 mg/dL (9-16); Calcium 8.4 mg/dL (8.4-10.2); Carbon Dioxide 27 mmol/L (22-29); Chloride 107 mmol/L (96-108); Creatinine Clr Calc Pharmacy 48.4; Estimated Glomerular Filt Rate 53; Potassium 3.7 mmol/L (3.3-5.1); Sodium 141 mmol/L (135-145); Total Protein 5.7 g/dL (6.5-8.0)
[2024-12-16 01:24] VITALS: BP 153/57; PULSE 84; RESP 18
[2024-12-16] MEDS: diazePAM 10 MG/2 ML CARTRIDGE 5 MG IVPUSH (01:54)
[2024-12-16 02:25] LABS: COVID-19 Test Negative (Negative); IDNOW Serial# 58CA691E
[2024-12-16] MEDS: Sucralfate Oral Suspension 1 GM/10 ML ORAL.SUSP PO (05:03)
--- NOTE | 2024-12-16 05:31 | ED.GENADULT ---
HPI - General Adult General Chief complaint: Headache Stated complaint: Headache & htn *219/87 Time Seen by Provider: 12/16/24 01:27 Source: patient Limitations: language barrier History of Present Illness ED Provider: Radha Somers PA-C HPI narrative: 64-year-old female with a history of poorly controlled hypertension with a history of nonadherence to her medication, with the associated dysplasia of the renal artery, hypertension, diabetes, hyperlipidemia, known coronary artery disease, prior NSTEMI, anemia, chronic back pain, peripheral vascular disease, tobacco abuse who presents with a hypertension. Patient states her blood pressure was elevated at home today. Throughout the day she has developed a gradual generalized headache. She states her blood pressure medication regimen was modified last week, they increased her medications, she states she took her evening medication prior to arrival. Patient also complains of generalized myalgias, dyspepsia, and bilateral calf cramping. Patient denies recent cough or cold symptoms no fever. Related Data Home Medications ?Medication ?Instructions ?Recorded ?Confirmed aspirin 81 mg tablet,delayed 81 mg PO DAILY 01/02/20 11/12/24 release (Adult Low Dose Aspirin) atorvastatin 80 mg tablet (Lipitor) 80 mg PO BEDTIME 01/02/20 11/12/24 escitalopram oxalate 20 mg tablet 20 mg PO DAILY@1800 01/02/20 11/12/24 (Lexapro) mirtazapine 45 mg tablet 45 mg PO BEDTIME 01/02/20 11/12/24 multivitamin 1 tab PO DAILY 01/02/20 11/12/24 blood sugar diagnostic (FreeStyle #10 ea 03/30/21 08/08/24 Lite Strips) insulin degludec 100 unit/mL (3 14 unit subcut DAILY 10/03/22 11/12/24 mL) subcutaneous pen (Tresiba FlexTouch U-100 insulin) docusate sodium 100 mg capsule 100 mg PO BID 01/30/24 11/12/24 ezetimibe 10 mg tablet 10 mg PO DAILY 04/11/24 11/12/24 amitriptyline 50 mg tablet 50 mg PO BEDTIME 08/08/24 11/12/24 gabapentin 600 mg tablet 600 mg PO BID 08/08/24 11/12/24 hydrochlorothiazide 50 mg tablet 50 mg PO DAILY 08/08/24 11/12/24 acetaminophen 650 mg 650 mg PO Q8H 08/27/24 11/12/24 tablet,extended release albuterol sulfate 90 mcg/actuation 2 puff inhalation Q6H PRN 08/27/24 11/12/24 aerosol inhaler (Ventolin HFA) Shortness Of Breath Or Wheezing ferrous sulfate 325 mg (65 mg 325 mg PO BID PRN Iron Levels 08/27/24 11/12/24 iron) tablet fluticasone propionate 50 2 spray intranasal DAILY 08/27/24 11/12/24 mcg/actuation nasal spray,suspension isosorbide mononitrate 30 mg 30 mg PO DAILY 08/27/24 11/12/24 tablet,extended release 24 hr lisinopril 40 mg tablet 40 mg PO DAILY 08/27/24 11/12/24 loratadine 10 mg tablet 10 mg PO DAILY 08/27/24 11/12/24 mometasone 100 mcg/actuation HFA 2 puff inhalation BID 08/27/24 11/12/24 aerosol inhaler (Asmanex HFA) nicotine (polacrilex) 2 mg buccal 2 mg PO Q1-2H PRN Nicotine Cravings 08/27/24 11/12/24 lozenge omeprazole 20 mg capsule,delayed 40 mg PO BIDWM@0800,1700 08/27/24 11/12/24 release semaglutide 0.25 mg or 0.5 mg (2 0.5 mg subcut FR 08/27/24 11/12/24 mg/3 mL) subcutaneous pen injector (Ozempic) clopidogrel 75 mg tablet (Plavix) 75 mg PO DAILY 10/15/24 11/12/24 telmisartan 80 mg tablet 80 mg PO DAILY 10/15/24 11/12/24 empagliflozin 12.5 mg-metformin 1 tab PO BID 11/11/24 11/11/24 1,000 mg tablet (Synjardy) rosuvastatin 40 mg tablet 40 mg PO DAILY 11/11/24 11/11/24 Previous Rx's ?Medication ?Instructions ?Recorded pioglitazone 15 mg tablet 15 mg PO DAILY 30 days #30 tabs 12/02/20 carvedilol 25 mg tablet (Coreg) 25 mg PO BID #120 tabs 04/29/24 nifedipine 90 mg tablet,extended 90 mg PO BEDTIME #90 tabs 04/29/24 release 24 hr apixaban 5 mg tablet (Eliquis) 5 mg PO BID #74 tabs 08/28/24 nicotine 7 mg/24 hr daily 7 mg transdermal DAILY 30 days #30 10/17/24 transdermal patch ea hydralazine 25 mg tablet 25 mg PO TID 30 days #90 tabs 11/28/24 ketorolac 10 mg tablet 10 mg PO Q6H PRN headache #20 tabs 12/16/24 sucralfate 100 mg/mL oral 10 ml PO QID PRN indigestion #300 12/16/24 suspension (Carafate) mL Allergies Allergy/AdvReac Type Severity Reaction Status Date / Time latex (LATEX) Allergy Severe RASH Verified 12/15/24 22:59 naproxen (From NAPROSYN) AdvReac Intermediate TACHYCARDIA Verified 12/15/24 22:59 Review of Systems Review of Systems: Yes all other systems are reviewed and are negative Constitutional: Constitutional: Reports fatigue, Denies fever(s), Reports headache(s) and Reports malaise ENT: Denies dizziness and Reports headache(s) Cardiovascular: Cardiovascular: Denies chest pain and Denies dyspnea Respiratory: Respiratory: Denies dyspnea Gastrointestinal: Gastrointestinal: Reports abdominal pain, Reports dyspepsia, Denies nausea and Denies vomiting Musculoskeletal: Musculoskeletal: Reports myalgias and Reports muscle cramps Neurologic: Denies dizziness and Reports headache(s) Endocrine: Endocrine: Reports fatigue PMFSH Past Medical History Attestation statement: The following information was validated with the patient. Medical History (Updated 12/16/24 @ 05:38 by BENJAMÍN Willard) Smoker Chronic anemia NSTEMI (non-ST elevated myocardial infarction) Mild aortic valve stenosis LORE (obstructive sleep apnea) Chronic low back pain Lumbar spinal stenosis HTN (hypertension) Vitamin D deficiency HLD (hyperlipidemia) T2DM (type 2 diabetes mellitus) H. pylori infection CAD (coronary artery disease) Cyst (solitary) of breast Kidney calculi Arthritis Asthma HTN (hypertension) Diabetes Surgical History (Updated 11/13/24 @ 08:24 by Kia Ma RN) Hx of vascular surgery (05/18/20) History of right-sided carotid endarterectomy (~11/2022) S/P aortogram History of esophagogastroduodenoscopy (EGD) Hx of colonoscopy History of breast surgery (~1983) History of cardiac cath Family History Family History Mother Diabetes Liver cancer Social History Social History (Updated 11/11/24 @ 12:25 by Kia Ma RN) Household Members: Family and Other Household Members Other:: friend and adult son Housing: Apartment Are you a primary career technology teacher to a significant other at home: No Do you presently have visiting nurse or other home services: Yes Alcohol intake: never Comment: refuses bed alarm Patient Tobacco Use Status: Current everyday Tobacco user Tobacco use type: Cigarette Years Smoked: 44 Smoked in Last 30 Days: No e-Cigarette/Vaping Use: Currently Using Second Hand Smoke Exposure: Yes Use of substances other than those prescribed or required for medical reasons: No Advance Directives: Yes Advance Directives on File: Yes Advance Directives Date on File: 09/26/23 Do you have a plan to hurt others: No Plan Patient : No service: No Current occupational status: unemployed and disabled Physical Exam ED Vital Signs: Vital Signs - 24 hr 12/15/24 22:46 12/15/24 22:57 12/16/24 01:24 Temperature 97.9 F 8.1 F L Pulse Rate 91 85 84 Respiratory Rate 18 18 18 Blood Pressure 192/78 H 183/78 H 153/57 H Pulse Oximetry 98 99 Oxygen Delivery Method Room Air Room Air BMI result Body Mass Index 28.3 Const Other: Alert, overall well-appearing Orientation/consciousness: patient oriented x3 Resp Effort & Inspection: normal respiratory effort Cardio Other: Normal peripheral perfusion GI Other: Soft, nondistended nontender no guarding Skin Other: Warm dry no rash Neuro General: patient oriented x3, gait normal, no focal motor deficits and CN's II-XI intact bilaterally Extrem Other: Calves are symmetric in size no swelling, the limbs are warm and well perfused Psych Other: Cooperative Course Reevaluation(s) Reevaluation #1: Patient feels improved after being medicated with Tylenol, Toradol and Valium with IV fluid Medications Administered Discontinued Medications Generic Name Dose Route Start Last Admin Trade Name Freq PRN Reason Stop Dose Admin Diazepam 5 mg 12/16/24 01:47 12/16/24 01:54 Diazepam 10 Mg/2 Ml Cartridge IVPUSH 12/16/24 01:48 5 mg STAT STA Administration Sodium Chloride 500 mls @ 500 mls/hr 12/16/24 01:47 12/16/24 03:22 Ns IV 12/16/24 02:46 Infused .Q1H ONE Infusion Acetaminophen 1,000 mg in 100 mls @ 400 mls/hr 12/16/24 01:48 12/16/24 02:09 Ofirmev IV 12/16/24 02:02 Infused ONCE ONE Infusion Ketorolac Tromethamine 15 mg 12/16/24 04:03 12/16/24 05:03 Ketorolac Tromethamine 15 Mg/Ml Vial IVPUSH 12/16/24 04:04 15 mg ONCE ONE Administration Sucralfate 1 gm 12/16/24 04:03 12/16/24 05:03 Sucralfate Oral Suspension 1 Gm/10 Ml Oral.Susp PO 12/16/24 04:04 1 gm ONCE ONE Administration Medical Decision Making Medical Decision Making MDM Narrative: 64-year-old female with a history of poorly controlled hypertension with a history of nonadherence to her medication, with the associated dysplasia of the renal artery, hypertension, diabetes, hyperlipidemia, known coronary artery disease, prior NSTEMI, anemia, chronic back pain, peripheral vascular disease, tobacco abuse who presents with a hypertension. Patient states her blood pressure was elevated at home today. Throughout the day she has developed a gradual generalized headache. She states her blood pressure medication regimen was modified last week, they increased her medications, she states she took her evening medication prior to arrival. Patient also complains of generalized myalgias, dyspepsia, and bilateral calf cramping. Patient denies recent cough or cold symptoms no fever. Problem: Known coronary artery disease, nonadherence with her blood pressure medications, peripheral vascular disease History: Per patient I have considered the following differential diagnoses: Muscle cramps, dehydration, electrolyte abnormality, claudication, hypertensive urgency, nonadherence with the medication, viral syndrome, intracranial hemorrhage, viral gastritis/dyspepsia Plan: When patient presented to triage, it was for poorly controlled blood pressure with a headache. To note, the patient is not hypertensive, her blood pressure is appropriate. With my assessment, the patient has numerous additional complaints, that sound viral related in nature. Screening labs were already obtained from triage. In regard to the leg cramping, this is nonspecific, there was no evidence of acute occlusive disease at this time, there was no swelling. There was also no electrolyte abnormalities or underlying dehydration to account for her cramping. A muscle relaxant was given along with IV fluid hydration. In regard to her dyspepsia, she has known GERD, she could have viral gastritis, we will give Carafate. Adding on a viral panel. In regard to her headache, I did consider intracranial hemorrhage, however her headache came on gradually, she has a history of poorly controlled blood pressure, this is not an acute process, she is neurologically intact, no active vomiting no complain of dizziness, I am attributing the headache to again underlying viral syndrome. We will give Toradol and acetaminophen. I have independently reviewed the following tests: Labs: No leukocytosis, not anemic, no electrolyte abnormality noted, viral panel negative Differential Diagnosis Differential Diagnoses: The differential diagnosis associated with the presentation includes See medical decision-making Admission/Observation Consideration of admission/observation: Escalation of care including admission/observation considered Not applicable Lab Data MDM Lab Attestation statement: I reviewed the patient's lab results. 12/15/24 23:12 12/15/24 23:12 Labs: Lab Results 12/15/24 12/16/24 Range/Units 23:12 02:08 WBC 8.1 (4.8-10.8) X10*3/uL RBC 4.03 L (4.20-5.50) X10*6/uL Hgb 11.5 L (12.0-16.0) g/dl Hct 35.7 L (37.0-47.0) % MCV 88.6 (80.0-98.0) fL MCH 28.5 (27.0-33.0) pg MCHC 32.2 (31.0-35.0) g/dl RDW 13.8 (11.0-16.0) % Plt Count 318 (160-400) X10*3/uL MPV 9.0 L (9.4-12.3) fL Immature Gran % (Auto) 0.2 (0.0-0.4) % Neut % (Auto) 61.1 (45-73) % Lymph % (Auto) 27.6 (20-40) % Osborne % (Auto) 6.9 (2-11) % Eos % (Auto) 3.6 (0-4) % Baso % (Auto) 0.6 (0-2) % Lymph # (Auto) 2.2 (1.2-4.9) X10*3/uL Osborne # (Auto) 0.6 (0.1-1.2) X10*3/uL Eos # (Auto) 0.3 (0.0-0.4) X10*3/uL Baso # (Auto) 0.1 (0.0-0.2) X10*3/uL Abs Immat Gran (auto) 0.02 (0.00-0.03) X10*3/uL Absolute Neuts (auto) 5.0 (2.0-8.3) x10*3/uL Absolute Nucleated RBC 0.000 (0.0-0.012) X10*3/uL Nucleated RBC % (auto) 0.0 (0.0-0.2) /100WBC Sodium 141 (135-145) mmol/L Potassium 3.7 (3.3-5.1) mmol/L Chloride 107 (96-108) mmol/L Carbon Dioxide 27 (22-29) mmol/L Anion Gap 11 L (12-20) BUN 16 (9-16) mg/dL Creatinine 1.05 (0.5-1.4) mg/dL Estim Creat Clear Calc 48.4 Estimated GFR 53 Random Glucose 174 H (60-115) mg/dL Calcium 8.4 (8.4-10.2) mg/dL Total Bilirubin 0.2 (0.0-1.0) mg/dL AST 16 (5-31) U/L ALT < 6 (0-31) U/L Alkaline Phosphatase 93 (39-117) U/L Total Protein 5.7 L (6.5-8.0) g/dL Albumin 3.0 L (3.5-5.0) g/dL COVID-19 ([facility]) Negative (Negative) COVID-19 Clin Com See Note Discharge Plan Discharge Clinical Impression: Acute viral syndrome, Cramp in muscle, Headache, Hypertension, uncontrolled, Acid indigestion Patient Disposition: Home, Self-Care Instructions: Indigestion (ED), Chronic Hypertension (ED), Viral Syndrome (ED), General Headache (ED) Additional Instructions: You were not noted to be hypertensive here in the emergency room, I suspect the fact that you took your evening medication, lowered your blood pressure appropriately. You need to continue to take your medications as directed, you have a history of poorly controlled blood pressure from not taking your medication as directed. All of your screening labs were normal, we obtained a viral panel, that was negative as well, you were screened for COVID. In regard to the muscle cramps, be sure to maintain proper hydration. You can use [id number] Tylenol 1000 mg taken every 6 hours, along with the ketorolac that you received overnight in the emergency room, as needed for your headaches. In regard to your indigestion, use the Carafate as needed. Call your primary care provider for a follow up appointment as needed. Prescriptions: New sucralfate [Carafate] 100 mg/mL suspension 10 ml PO QID PRN (Reason: indigestion) Qty: 300 0RF Rx Instructions: swish in mouth and swallow; use after food/drink ketorolac 10 mg tablet 10 mg PO Q6H PRN (Reason: headache) Qty: 20 0RF Rx Instructions: maximum total duration of 5 days from all oral, intranasal, or parenteral formulations. The patient received an IV dose of Toradol here in the emergency room No Action pioglitazone 15 mg tablet 15 mg PO DAILY 30 Days Qty: 30 11RF hydralazine 25 mg tablet 25 mg PO TID 30 Days Qty: 90 5RF Protocol: Hold for SBP< HOLD for SBP < : 90 acetaminophen 650 mg tablet extended release 650 mg PO Q8H omeprazole 20 mg capsule,delayed release(DR/EC) 40 mg PO BIDWM@0800,1700 albuterol sulfate [Ventolin HFA] 90 mcg/actuation HFA aerosol inhaler 2 puff INHALATION Q6H PRN (Reason: Shortness Of Breath Or Wheezing) lisinopril 40 mg tablet 40 mg PO DAILY fluticasone propionate 50 mcg/actuation spray,suspension 2 spray intranasal DAILY loratadine 10 mg tablet 10 mg PO DAILY nicotine (polacrilex) 2 mg lozenge 2 mg PO Q1-2H PRN (Reason: Nicotine Cravings) Asmanex HFA 100 mcg/actuation HFA aerosol inhaler 2 puff INHALATION BID Ozempic 0.25 mg or 0.5 mg (2 mg/3 mL) pen injector 0.5 mg subcut FR isosorbide mononitrate 30 mg tablet extended release 24 hr 30 mg PO DAILY ferrous sulfate 325 mg (65 mg iron) tablet 325 mg PO BID PRN (Reason: Iron Levels) Rx Instructions: Pt takes as needed due to this med making the pt constipated. Eliquis 5 mg tablet 5 mg PO BID Qty: 74 0RF Rx Instructions: Take 10 mg twice daily for 7 days then 5 mg twice daily telmisartan 80 mg tablet 80 mg PO DAILY clopidogrel [Plavix] 75 mg tablet 75 mg PO DAILY nicotine 7 mg/24 hr Patch 24 Hour 7 mg transdermal DAILY 30 Days Qty: 30 0RF rosuvastatin 40 mg Tablet 40 mg PO DAILY Synjardy 12.5-1,000 mg Tablet 1 tab PO BID multivitamin Tablet 1 tab PO DAILY aspirin [Adult Low Dose Aspirin] 81 mg tablet,delayed release (DR/EC) 81 mg PO DAILY escitalopram oxalate [Lexapro] 20 mg tablet 20 mg PO DAILY@1800 mirtazapine 45 mg tablet 45 mg PO BEDTIME atorvastatin [Lipitor] 80 mg tablet 80 mg PO BEDTIME Tresiba FlexTouch U-100 100 unit/mL (3 mL) insulin pen 14 unit subcut DAILY (DME) FreeStyle Lite Strips Strip See Rx Instructions Not Applicable QID Qty: 10 Rx Instructions: As directed ezetimibe 10 mg tablet 10 mg PO DAILY gabapentin 600 mg tablet 600 mg PO BID amitriptyline 50 mg tablet 50 mg PO BEDTIME hydrochlorothiazide 50 mg tablet 50 mg PO DAILY carvedilol [Coreg] 25 mg tablet 25 mg PO BID Qty: 120 4RF Rx Instructions: must administer with a meal/food nifedipine 90 mg tablet extended release 24hr 90 mg PO BEDTIME Qty: 90 4RF docusate sodium 100 mg capsule 100 mg PO BID Print Language: Armenian
[2024-12-16 05:53] VITALS: BP 146/5; PULSE 74; RESP 17; TEMP 36.5; O2SAT 96
== END 2024-12-16 05:54 | disposition home or self-care (01) ==
PROVIDERS: Physician Assistant Medical; Emergency Provider Emergency Medicine; PCP Family Medicine
DX: B34.9 Viral infection, unspecified (principal); I10 Essential (primary) hypertension; R51.9 Headache, unspecified; Z91.148 Patient's other noncompliance with medication regimen for other reason; R25.2 Cramp and spasm; K30 Functional dyspepsia; Z79.899 Other long term (current) drug therapy; E11.9 Type 2 diabetes mellitus without complications
CPT/HCPCS: 36415; 80053; 85025; 87635; 96361; 96374; 96375; 99285; J0131; J1885; J3360

== ENCOUNTER 2024-12-17 19:42 | Emergency (ER) | payer MEDICAID, SELFPAY ==
--- NOTE | 2024-12-17 | ECG_ITS ---
Test Reason : htn Blood Pressure : */* mmHG Vent. Rate : 81 BPM Atrial Rate : 81 BPM P-R Int : 142 ms QRS Dur : 92 ms QT Int : 396 ms P-R-T Axes : 51 -11 113 degrees QTcB Int : 460 ms Normal sinus rhythm Moderate voltage criteria for LVH, may be normal variant ( R in aVL , [place] product ) Nonspecific T wave abnormality Abnormal ECG When compared with ECG of 15-Oct-2024 03:40, Nonspecific T wave abnormality, improved in Inferior leads Referred By: Generic ED Physician Electronically Signed By: Ghanshyam Daniel
[2024-12-17 19:52] VITALS: BP 184/84; PULSE 90; O2SAT 98
[2024-12-17 20:31] LABS: MANUAL DIFF FLAG NO
[2024-12-17 20:33] LABS: Hematocrit 37.0 % (37.0-47.0); Hemoglobin 12.1 g/dl (12.0-16.0); Imm Gran Abs Auto 0.01 X10*3/uL (0.00-0.03); Imm Gran Pct Auto 0.2 % (0.0-0.4); Lymphocytes Absolute Auto 1.4 X10*3/uL (1.2-4.9); Mean Corpuscular HGB Conc 32.7 g/dl (31.0-35.0); Mean Corpuscular Hemoglobin 28.6 pg (27.0-33.0); Mean Corpuscular Volume 87.5 fL (80.0-98.0); NRBC Abs Auto 0.000 X10*3/uL (0.0-0.012); NRBC Pct Auto 0.0 /100WBC (0.0-0.2); Platelet Count 312 X10*3/uL (160-400); Red Blood Count 4.23 X10*6/uL (4.20-5.50); White Blood Count 5.7 X10*3/uL (4.8-10.8)
[2024-12-17 20:40] VITALS: BP 191/81; PULSE 78; RESP 17; TEMP 36.4; O2SAT 99; BMI 27.7
[2024-12-17 20:56] LABS: Alanine Aminotransferase < 6 U/L (0-31); Albumin Level 2.9 g/dL (3.5-5.0); Alkaline Phosphatase 88 U/L (39-117); Anion Gap 9 (12-20); Aspartate Amino Transferase 16 U/L (5-31); Blood Urea Nitrogen 11 mg/dL (9-16); Calcium 8.1 mg/dL (8.4-10.2); Carbon Dioxide 26 mmol/L (22-29); Chloride 107 mmol/L (96-108); Creatinine Clr Calc Pharmacy 58.8; Estimated Glomerular Filt Rate > 60; Potassium 3.8 mmol/L (3.3-5.1); Sodium 138 mmol/L (135-145); Total Protein 5.7 g/dL (6.5-8.0)
[2024-12-17 21:00] LABS: Troponin-I High Sensitivity 6.6 ng/L (<3.5-17.0)
--- NOTE | 2024-12-17 21:00 | PC.NURSE ---
pt BP noted to be 190's systolic, provider made aware, no new orders at this time
[2024-12-17 23:08] VITALS: BP 173/70; PULSE 81; RESP 18; O2SAT 99
--- NOTE | 2024-12-17 23:27 | PC.NURSE ---
pt medicated per MAR
[2024-12-18] VITALS: BP 186/76; PULSE 80; RESP 20; O2SAT 98
[2024-12-18 00:26] VITALS: BP 174/84
[2024-12-18] MEDS: NIFEdipine ER 30 MG TAB.ER.24 90 MG PO (00:26)
--- NOTE | 2024-12-18 01:49 | ED.GENADULT ---
HPI - General Adult General Chief complaint: General Medical Stated complaint: headache HTN feeling hot Time Seen by Provider: 12/17/24 22:03 Source: patient, RN notes reviewed, old records reviewed and ux research associate Mode of arrival: EMS Limitations: language barrier History of Present Illness ED Provider: Hasmukh HPI narrative: 64-year-old male with past medical history significant for poorly-controlled hypertension, history of noncompliance, diabetes, hyperlipidemia, coronary artery disease, anemia, chronic back pain, PVD, tobacco dependence presents for evaluation of high blood pressure. Patient reports that around 6:00 p.m. tonight, about 4 hours prior to arrival she was sitting down and ?I felt flushed and had a headache. She reports that she checked her blood pressure and it was high She denies any trauma to the head or neck. She reports that she took her morning meds today but has not yet taken her bedtime meds She takes carvedilol, nifedipine, telmisartan, isosorbide Denies any chest pain, palpitations, shortness of breath pain No abdominal pain, nausea, vomiting The patient is seen here 2 days ago for similar complaints Related Data Home Medications ?Medication ?Instructions ?Recorded ?Confirmed aspirin 81 mg tablet,delayed 81 mg PO DAILY 01/02/20 11/12/24 release (Adult Low Dose Aspirin) atorvastatin 80 mg tablet (Lipitor) 80 mg PO BEDTIME 01/02/20 11/12/24 escitalopram oxalate 20 mg tablet 20 mg PO DAILY@1800 01/02/20 11/12/24 (Lexapro) mirtazapine 45 mg tablet 45 mg PO BEDTIME 01/02/20 11/12/24 multivitamin 1 tab PO DAILY 01/02/20 11/12/24 blood sugar diagnostic (FreeStyle #10 ea 03/30/21 08/08/24 Lite Strips) insulin degludec 100 unit/mL (3 14 unit subcut DAILY 10/03/22 11/12/24 mL) subcutaneous pen (Tresiba FlexTouch U-100 insulin) docusate sodium 100 mg capsule 100 mg PO BID 01/30/24 11/12/24 ezetimibe 10 mg tablet 10 mg PO DAILY 04/11/24 11/12/24 amitriptyline 50 mg tablet 50 mg PO BEDTIME 08/08/24 11/12/24 gabapentin 600 mg tablet 600 mg PO BID 08/08/24 11/12/24 hydrochlorothiazide 50 mg tablet 50 mg PO DAILY 08/08/24 11/12/24 acetaminophen 650 mg 650 mg PO Q8H 08/27/24 11/12/24 tablet,extended release albuterol sulfate 90 mcg/actuation 2 puff inhalation Q6H PRN 08/27/24 11/12/24 aerosol inhaler (Ventolin HFA) Shortness Of Breath Or Wheezing ferrous sulfate 325 mg (65 mg 325 mg PO BID PRN Iron Levels 08/27/24 11/12/24 iron) tablet fluticasone propionate 50 2 spray intranasal DAILY 08/27/24 11/12/24 mcg/actuation nasal spray,suspension isosorbide mononitrate 30 mg 30 mg PO DAILY 08/27/24 11/12/24 tablet,extended release 24 hr lisinopril 40 mg tablet 40 mg PO DAILY 08/27/24 11/12/24 loratadine 10 mg tablet 10 mg PO DAILY 08/27/24 11/12/24 mometasone 100 mcg/actuation HFA 2 puff inhalation BID 08/27/24 11/12/24 aerosol inhaler (Asmanex HFA) nicotine (polacrilex) 2 mg buccal 2 mg PO Q1-2H PRN Nicotine Cravings 08/27/24 11/12/24 lozenge omeprazole 20 mg capsule,delayed 40 mg PO BIDWM@0800,1700 08/27/24 11/12/24 release semaglutide 0.25 mg or 0.5 mg (2 0.5 mg subcut FR 08/27/24 11/12/24 mg/3 mL) subcutaneous pen injector (Ozempic) clopidogrel 75 mg tablet (Plavix) 75 mg PO DAILY 10/15/24 11/12/24 telmisartan 80 mg tablet 80 mg PO DAILY 10/15/24 11/12/24 empagliflozin 12.5 mg-metformin 1 tab PO BID 11/11/24 11/11/24 1,000 mg tablet (Synjardy) rosuvastatin 40 mg tablet 40 mg PO DAILY 11/11/24 11/11/24 Previous Rx's ?Medication ?Instructions ?Recorded pioglitazone 15 mg tablet 15 mg PO DAILY 30 days #30 tabs 12/02/20 carvedilol 25 mg tablet (Coreg) 25 mg PO BID #120 tabs 04/29/24 nifedipine 90 mg tablet,extended 90 mg PO BEDTIME #90 tabs 04/29/24 release 24 hr apixaban 5 mg tablet (Eliquis) 5 mg PO BID #74 tabs 08/28/24 nicotine 7 mg/24 hr daily 7 mg transdermal DAILY 30 days #30 10/17/24 transdermal patch ea hydralazine 25 mg tablet 25 mg PO TID 30 days #90 tabs 11/28/24 ketorolac 10 mg tablet 10 mg PO Q6H PRN headache #20 tabs 12/16/24 sucralfate 100 mg/mL oral 10 ml PO QID PRN indigestion #300 12/16/24 suspension (Carafate) mL Allergies Allergy/AdvReac Type Severity Reaction Status Date / Time latex (LATEX) Allergy Severe RASH Verified 12/17/24 20:43 naproxen (From NAPROSYN) AdvReac Intermediate TACHYCARDIA Verified 12/17/24 20:43 Review of Systems Constitutional: Constitutional: Denies body ache(s), Denies chills, Denies fever(s), Denies frequent falls and Reports headache(s) Eyes: Eyes: Denies blurry vision, Denies exophthalmos, Denies floaters and Denies irritation ENT: Denies vertigo, Denies dizziness and Reports headache(s) Cardiovascular: Cardiovascular: Denies chest pain and Denies dyspnea on exertion Respiratory: Respiratory: Denies cough and Denies dyspnea on exertion Gastrointestinal: Gastrointestinal: Denies abdominal pain, Denies nausea and Denies vomiting Musculoskeletal: Musculoskeletal: Denies back pain Integumentary/Breasts: Skin/Breast: Denies rash Neurologic: Reports burning sensations, Denies confusion, Denies vertigo, Denies dizziness, Denies frequent falls, Reports headache(s), Denies radicular pain and Denies restless legs Psychiatric: Psychiatric: Denies confusion and Denies depression PENDING SALE TO [facility] Past Medical History Medical History (Updated 12/18/24 @ 01:50 by Stuart Noe) Smoker Chronic anemia NSTEMI (non-ST elevated myocardial infarction) Mild aortic valve stenosis LORE (obstructive sleep apnea) Chronic low back pain Lumbar spinal stenosis HTN (hypertension) Vitamin D deficiency HLD (hyperlipidemia) T2DM (type 2 diabetes mellitus) H. pylori infection CAD (coronary artery disease) Cyst (solitary) of breast Kidney calculi Arthritis Asthma HTN (hypertension) Diabetes Surgical History (Updated 11/13/24 @ 08:24 by Kia Ma RN) Hx of vascular surgery (05/18/20) History of right-sided carotid endarterectomy (~11/2022) S/P aortogram History of esophagogastroduodenoscopy (EGD) Hx of colonoscopy History of breast surgery (~1983) History of cardiac cath Family History Family History Mother Diabetes Liver cancer Social History Social History (Updated 11/11/24 @ 12:25 by Kia Ma RN) Household Members: Family and Other Household Members Other:: friend and adult son Housing: Apartment Are you a primary animal care supervisor to a significant other at home: No Do you presently have visiting nurse or other home services: Yes Alcohol intake: never Comment: refuses bed alarm Patient Tobacco Use Status: Current everyday Tobacco user Tobacco use type: Cigarette Years Smoked: 44 Smoked in Last 30 Days: Yes e-Cigarette/Vaping Use: Currently Using Second Hand Smoke Exposure: Yes Use of substances other than those prescribed or required for medical reasons: No Advance Directives: Yes Advance Directives on File: Yes Advance Directives Date on File: 09/26/23 Patient : No service: No Current occupational status: unemployed and disabled Physical Exam ED Vital Signs: Vital Signs - 24 hr 12/17/24 20:40 12/17/24 23:08 12/18/24 00:00 Temperature 97.6 F Pulse Rate 78 81 80 Respiratory Rate 17 18 20 Blood Pressure 191/81 H 173/70 H 186/76 H Pulse Oximetry 99 99 98 Oxygen Delivery Method Room Air Room Air Room Air 12/18/24 00:26 Temperature Pulse Rate Respiratory Rate Blood Pressure 174/84 H Pulse Oximetry Oxygen Delivery Method BMI result Body Mass Index 27.7 Const General: No confusion Nutritional Appearance: well nourished Orientation/consciousness: No confusion HENMT Head: Yes normocephalic and Yes atraumatic Throat: Yes posterior oropharynx normal Eyes Eyelids: Yes eyelids normal Conjunctivae: conjunctivae normal Sclerae: sclerae normal Corneas: corneas normal Pupils: Equal, round and reactive pupils present EOM: EOMs intact bilaterally Neck Neck: Yes full ROM Resp Effort & Inspection: normal respiratory effort, able to speak in complete sentences, no audible wheezes and not labored Auscultation: clear to auscultation bilaterally Cardio Rate: regular rate Rhythm: regular rhythm GI Inspection: No distended Palpation (GI): Soft to palpation, not firm, nontender, no guarding and not rigid Skin General skin exam: no rashes or lesions noted and elasticity normal Neuro General: No confusion Cranial nerves: Yes CN's II-XII intact bilaterally, Yes Equal, round and reactive pupils present and Yes Bilaterally intact EOM present Cognition (Neuro): normal cognition Extrem Other: Moving all extremities well without any obvious deformities Course Reevaluation(s) Reevaluation #1: Patient re-evaluated, she reports her symptoms have resolved. Discussed workup with her she will call her son for a ride home. Time: 02:04 Medications Administered Discontinued Medications Generic Name Dose Route Start Last Admin Trade Name Freq PRN Reason Stop Dose Admin Acetaminophen 975 mg 12/17/24 23:22 12/17/24 23:25 Acetaminophen 325 Mg Tablet PO 12/17/24 23:23 975 mg ONCE ONE Administration Nifedipine 90 mg 12/18/24 00:22 12/18/24 00:26 Nifedipine Er 30 Mg Tab.Er.24 PO 12/18/24 00:23 90 mg ONCE ONE Administration Protocol Medical Decision Making Medical Decision Making [facility] Narrative: 64-year-old female presents for evaluation of multiple complaints including headache, a hot sensation, and high blood pressure. She was noted to have a high blood pressure as high as 191/81. She is due for a dose of nifedipine extended release 90 mg. She has no chest pain, she has complained of a headache has no neuro deficits. She is not on any anticoagulation, there was no trauma to the head or neck. She is quite well appearing. Her EKG is nonischemic, basic labs were ordered. Her hematology does not show any worrisome abnormality, no leukocytosis, no anemia, no left shift. Chemistries without any significant abnormalities though the patient does have an elevated glucose to 258. No elevation of the anion gap, no evidence of acidosis with a normal carbon dioxide level. Renal function normal limits. Troponin within normal limits and the patient does not have chest pain, she rules out for ACS as her symptoms started over 4 hours ago Differential Diagnosis Differential Diagnoses: The differential diagnosis associated with the presentation includes Hypertension Anxiety Acute headache Migraine headache Medication noncompliance Admission/Observation Consideration of admission/observation: Escalation of care including admission/observation considered Lab Data MDM Lab Attestation statement: I reviewed the patient's lab results. No leukocytosis or anemia. Normal platelet count. No electrolyte abnormalities warranting dimension. The patient is a known diabetic, glucose of 258 but no evidence of DKA. 12/17/24 20:28 12/17/24 20:28 Labs: Lab Results 12/17/24 Range/Units 20:28 WBC 5.7 (4.8-10.8) X10*3/uL RBC 4.23 (4.20-5.50) X10*6/uL Hgb 12.1 (12.0-16.0) g/dl Hct 37.0 (37.0-47.0) % MCV 87.5 (80.0-98.0) fL MCH 28.6 (27.0-33.0) pg MCHC 32.7 (31.0-35.0) g/dl RDW 13.7 (11.0-16.0) % Plt Count 312 (160-400) X10*3/uL MPV 8.9 L (9.4-12.3) fL Immature Gran % (Auto) 0.2 (0.0-0.4) % Neut % (Auto) 64.8 (45-73) % Lymph % (Auto) 24.7 (20-40) % [place] % (Auto) 5.5 (2-11) % Eos % (Auto) 3.9 (0-4) % Baso % (Auto) 0.9 (0-2) % Lymph # (Auto) 1.4 (1.2-4.9) X10*3/uL [place] # (Auto) 0.3 (0.1-1.2) X10*3/uL Eos # (Auto) 0.2 (0.0-0.4) X10*3/uL Baso # (Auto) 0.1 (0.0-0.2) X10*3/uL Abs Immat Gran (auto) 0.01 (0.00-0.03) X10*3/uL Absolute Neuts (auto) 3.7 (2.0-8.3) x10*3/uL Absolute Nucleated RBC 0.000 (0.0-0.012) X10*3/uL Nucleated RBC % (auto) 0.0 (0.0-0.2) /100WBC Sodium 138 (135-145) mmol/L Potassium 3.8 (3.3-5.1) mmol/L Chloride 107 (96-108) mmol/L Carbon Dioxide 26 (22-29) mmol/L Anion Gap 9 L (12-20) BUN 11 (9-16) mg/dL Creatinine 0.82 (0.5-1.4) mg/dL Estim Creat Clear Calc 58.8 Estimated GFR > 60 Random Glucose 258 H (60-115) mg/dL Calcium 8.1 L (8.4-10.2) mg/dL Total Bilirubin 0.2 (0.0-1.0) mg/dL AST 16 (5-31) U/L ALT < 6 (0-31) U/L Alkaline Phosphatase 88 (39-117) U/L Troponin I High Sens 6.6 (<3.5-17.0) ng/L Total Protein 5.7 L (6.5-8.0) g/dL Albumin 2.9 L (3.5-5.0) g/dL Independent Interpretation I performed an independent interpretation of an: EKG Interpretation: Normal sinus rhythm with a rate of 81 beats minute. No significant change when compared to previous from October of 2024. Discharge Plan Discharge Clinical Impression: Hypertension Patient Disposition: Home, Self-Care Instructions: Chronic Hypertension (ED) Additional Instructions: Your workup in the ER today was reassuring. This includes your labs and EKG Your blood pressure was elevated, you were given a dose of your nighttime nifedipine with improvement of your blood pressure. Follow up with your primary doctor, return for new or worsening symptoms Prescriptions: No Action pioglitazone 15 mg tablet 15 mg PO DAILY 30 Days Qty: 30 11RF hydralazine 25 mg tablet 25 mg PO TID 30 Days Qty: 90 5RF Protocol: Hold for SBP< HOLD for SBP < : 90 acetaminophen 650 mg tablet extended release 650 mg PO Q8H omeprazole 20 mg capsule,delayed release(DR/EC) 40 mg PO BIDWM@0800,1700 albuterol sulfate [Ventolin HFA] 90 mcg/actuation HFA aerosol inhaler 2 puff INHALATION Q6H PRN (Reason: Shortness Of Breath Or Wheezing) lisinopril 40 mg tablet 40 mg PO DAILY fluticasone propionate 50 mcg/actuation spray,suspension 2 spray intranasal DAILY loratadine 10 mg tablet 10 mg PO DAILY nicotine (polacrilex) 2 mg lozenge 2 mg PO Q1-2H PRN (Reason: Nicotine Cravings) Asmanex HFA 100 mcg/actuation HFA aerosol inhaler 2 puff INHALATION BID Ozempic 0.25 mg or 0.5 mg (2 mg/3 mL) pen injector 0.5 mg subcut FR isosorbide mononitrate 30 mg tablet extended release 24 hr 30 mg PO DAILY ferrous sulfate 325 mg (65 mg iron) tablet 325 mg PO BID PRN (Reason: Iron Levels) Rx Instructions: Pt takes as needed due to this med making the pt constipated. Eliquis 5 mg tablet 5 mg PO BID Qty: 74 0RF Rx Instructions: Take 10 mg twice daily for 7 days then 5 mg twice daily telmisartan 80 mg tablet 80 mg PO DAILY clopidogrel [Plavix] 75 mg tablet 75 mg PO DAILY nicotine 7 mg/24 hr Patch 24 Hour 7 mg transdermal DAILY 30 Days Qty: 30 0RF rosuvastatin 40 mg Tablet 40 mg PO DAILY Synjardy 12.5-1,000 mg Tablet 1 tab PO BID sucralfate [Carafate] 100 mg/mL suspension 10 ml PO QID PRN (Reason: indigestion) Qty: 300 0RF Rx Instructions: swish in mouth and swallow; use after food/drink ketorolac 10 mg tablet 10 mg PO Q6H PRN (Reason: headache) Qty: 20 0RF Rx Instructions: maximum total duration of 5 days from all oral, intranasal, or parenteral formulations. The patient received an IV dose of Toradol here in the emergency room multivitamin Tablet 1 tab PO DAILY aspirin [Adult Low Dose Aspirin] 81 mg tablet,delayed release (DR/EC) 81 mg PO DAILY escitalopram oxalate [Lexapro] 20 mg tablet 20 mg PO DAILY@1800 mirtazapine 45 mg tablet 45 mg PO BEDTIME atorvastatin [Lipitor] 80 mg tablet 80 mg PO BEDTIME Tresiba FlexTouch U-100 100 unit/mL (3 mL) insulin pen 14 unit subcut DAILY (DME) FreeStyle Lite Strips Strip See Rx Instructions Not Applicable QID Qty: 10 Rx Instructions: As directed ezetimibe 10 mg tablet 10 mg PO DAILY gabapentin 600 mg tablet 600 mg PO BID amitriptyline 50 mg tablet 50 mg PO BEDTIME hydrochlorothiazide 50 mg tablet 50 mg PO DAILY carvedilol [Coreg] 25 mg tablet 25 mg PO BID Qty: 120 4RF Rx Instructions: must administer with a meal/food nifedipine 90 mg tablet extended release 24hr 90 mg PO BEDTIME Qty: 90 4RF docusate sodium 100 mg capsule 100 mg PO BID Print Language: Telugu
[2024-12-18 02:04] VITALS: BP 197/77; PULSE 81; RESP 19; TEMP 36.9; O2SAT 97
[2024-12-18 02:16] VITALS: BP 197/77; PULSE 81; RESP 19; TEMP 36.9; O2SAT 97
--- OUTSIDE RECORDS SUMMARY | 2025-01-16 19:00 | XMS_ITS | Clinical Summary ---
Author Organization Unknown Care Team Providers Care Plastic Straightening Roll Operator Name Role Phone ADILIA FELIPE, VIOLETA Unavailable Unavailable SURJIT DAVID, ERIC Unavailable Unavailable Payers Payer Name Policy Type Policy Number Effective Date Expira tion Date MEDICAID [facility] [id number] Problems Condition Name Condition Details Condition Category Status Onset Date Resolution Date Last Treatment Date Treating Clinician Comments ESSENTIAL (PRIMARY) HYPERTENSION Active 09-21 00:00: 00 ATHSCL HEART DISEASE OF [place] CORONARY ARTERY W/O ANG PCTRS Active 09-21 [...] CIGARETTES, UNCOMPLICATE D Active 09-21 00:00: 00 [facility] (CURRENT) USE OF INSULIN Active 09-21 00:00: 00 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 ICS/ANTIPLAT ELETS Active [...] release 24 hr 805 00:00: 00 Yes [id number] 60 mg AT BEDTIME 60 mg AT BEDTIME (route: oral) Med Classific ation: Cardiovas cular Therapy Agents oxycodone 5 mg tablet 09-04 00:00: 00 11-19 23:59 :00 No [id number] Unavailable 5 mg FIVE TIMES DAILY NEEDED 5 mg FIVE TIMES DAILY NEEDED (route: oral) Med Classific ation: Analgesic , Anti-infl ammatory or Antipyret ic gabapentin 600 mg tablet 09-03 00:00: 00 09-25 23:59 :00 No [id number] 600 mg 2 TIMES DAILY 600 mg 2 TIMES DAILY (route: oral) Med Classific ation: Central Nervous System Agents nicotine 21 mg/24 hr daily transdermal patch 08-30 00:00: 00 Yes [id number] Unavailable 21 mg DAILY 21 mg DAILY (route: transderma l) Med Classific ation: Chemical Dependenc y, Agents to Treat Alcohol Prep Pads 08-29 00:00: 00 05-18 23:59 :00 No [id number] 1 pads, medicat ed DIRECTED THREE TIMES DAILY AND NEEDED 1 pads, medicated DIRECTED THREE TIMES DAILY AND NEEDED (route: topical) Med Classific ation: Antisepti cs and Disinfect ants amitriptyli ne 50 mg tablet 08-29 00:00: 00 09-22 23:59 :00 No [id number] Unavailable 50 mg AT BEDTIME 50 mg AT BEDTIME (route: oral) Med Classific ation: Central Nervous System Agents Asmanex HFA 100 mcg/actuati on aerosol inhaler 08-29 00:00: 00 Yes [id number] 2 puff TWICE DAILY 2 puff TWICE DAILY (route: inhalation ) Med Classific ation: Respirato ry Therapy Agents atorvastati n 80 mg tablet 08-29 00:00: 00 Yes [id number] Unavailable 80 mg BEDTIME 80 mg BEDTIME (route: oral) Med Classific ation: Cardiovas cular Therapy Agents carvedilol 25 mg tablet 08-29 00:00: 00 Yes [id number] Unavailable 25 mg TWICE DAILY 25 mg TWICE DAILY (route: oral) Med Classific ation: Cardiovas cular Therapy Agents clopidogrel 75 mg tablet 08-29 00:00: 00 Yes [id number] 75 mg EVERY AM 75 mg EVERY AM (route: oral) Med Classific ation: Hematolog ical Agents docusate sodium 100 mg capsule 08-29 00:00: 00 09-25 23:59 :00 No [id number] Unavailable 100 mg TWICE DAILY 100 mg TWICE DAILY (route: oral) Med Classific ation: Gastroint estinal Therapy Agents escitalopra m 20 mg tablet 08-29 00:00: 00 Yes [id number] Unavailable 20 mg EVERY PM 20 mg EVERY PM (route: oral) Med Classific ation: Central Nervous System Agents FeroSul 325 mg (65 mg iron) tablet 08-29 00:00: 00 09-25 23:59 :00 No [id number] Unavailable 325 mg TWICE DAILY IN THE MORNING AND AT BEDTIME 325 mg TWICE DAILY IN THE MORNING AND AT BEDTIME (route: oral) Med Classific ation: Electroly te Balance-N utritiona l Products gabapentin 800 mg tablet 08-29 00:00: 00 09-22 23:59 :00 No [id number] 800 mg 2 TIMES DAILY 800 mg 2 TIMES DAILY (route: oral) Med Classific ation: Central Nervous System Agents hydralazine 25 mg tablet 08-29 00:00: 00 09-22 23:59 :00 No [id number] Unavailable 25 mg 3 TIMES DAILY 25 mg 3 TIMES DAILY (route: oral) Med Classific ation: Cardiovas cular Therapy Agents hydralazine 50 mg tablet 08-29 00:00: 00 09-25 23:59 :00 No [id number] Unavailable 50 mg THREE TIMES DAILY IN THE MORNING AT 50 mg THREE TIMES DAILY IN THE MORNING AT (route: oral) Med Classific ation: Cardiovas cular Therapy Agents mirtazapine 45 mg tablet 08-29 00:00: 00 Yes [id number] Unavailable 45 mg AT BEDTIME 45 mg AT BEDTIME (route: oral) Med Classific ation: Central Nervous System Agents omeprazole 20 mg capsule,del ayed release 08-29 00:00: 00 Yes [id number] 20 mg TWICE DAILY 20 mg TWICE DAILY (route: oral) Med Classific ation: Gastroint estinal Therapy Agents lisinopril 40 mg tablet 09-25 00:00: 00 Yes [id number] 40 mg DAILY 40 mg DAILY (route: oral) Med Classific ation: Cardiovas cular Therapy Agents metformin 1,000 mg tablet 09-25 00:00: 00 09-22 23:59 :00 No [id number] 1000 mg 2 TIMES DAILY 1000 mg 2 TIMES DAILY (route: oral) Med Classific ation: Endocrine multivitami n tablet 09-25 00:00: 00 Yes [id number] 1 tablet DAILY 1 tablet DAILY (route: oral) Med Classific ation: Electroly te Balance-N utritiona l Products nifedipine ER 60 mg tablet,exte nded release 09-25 00:00: 00 Yes [id number] 60 mg EVERY PM 60 mg EVERY PM (route: oral) Med Classific ation: Cardiovas cular Therapy Agents pioglitazon e 15 mg tablet 09-25 00:00: 00 Yes [id number] 15 mg DAILY 15 mg DAILY (route: oral) Med Classific ation: Endocrine Tresiba FlexTouch U-100 insulin 100 unit/mL (3 mL) subcutaneou s pen 09-25 00:00: 00 Yes [id number] 10 In unit DAILY 10 In unit DAILY (route: subcutaneo ) Med Classific ation: Endocrine aspirin 81 mg tablet 09-22 00:00: 00 Yes [id number] 1 tablet DAILY 1 tablet DAILY (route: oral) Med Classific ation: Hematolog ical Agents docusate sodium 100 mg capsule 09-22 00:00: 00 Yes [id number] 1 capsule 2 TIMES DAILY 1 capsule 2 TIMES DAILY (route: oral) Med Classific ation: Gastroint estinal Therapy Agents ferrous sulfate 325 mg (65 mg iron) tablet 09-22 00:00: 00 Yes [id number] 1 tablet 2 TIMES DAILY 1 tablet 2 TIMES DAILY (route: oral) Med Classific ation: Electroly te Balance-N utritiona l Products isosorbide mononitrate ER 30 mg tablet,exte nded release 24 hr 09-22 00:00: 00 Yes [id number] 1 tablet DAILY 1 tablet DAILY (route: oral) Med Classific ation: Cardiovas cular Therapy Agents Vital Signs Vital Name Observation Time Observation Value Commen ts Temperature 2024-12-16 11:35:00.000 97.5 [degF] Temperature 2024 [...] PRE-POUR MEDICATION PER MEDICATION LIST TILL NEXT PRISON VISIT [code = SKILLED NURSE TO PRE-POUR MEDICATION PER MEDICATION LIST TILL NEXT PRISON VISIT] Future Scheduled Test PATIENT MA Y [...] MEDICATIONS DAILY AND PRE-POUR MEDICATIONS TILL NEXT PRISON VISIT PER MEDICATION LIST. [code = SKILLED NURSE TO ADMINISTER MEDICATIONS DAILY AND PRE-POUR MEDICATIONS TILL NEXT PRISON VISIT PER MEDICATION LIST.] Future Scheduled Test [...] AWARENESS FOR SAFETY AND WILL NOTIFY CLINICAL MACHINE FOLDER AND PHYSICIAN/PROVIDER WITH ANY CHANGE IN CONDITION. [code = SKILLED NURSE WILL MAINTAIN SITUATIONAL AWARENESS FOR SAFETY AND WILL NOTIFY CLINICAL MACHINE FOLDER AND PHYSICIAN/PROVIDER WITH ANY CHANGE IN CONDITION.] [...] CARE WILL BE ESTABLISHED THAT MEETS PATIENT'S PRISON NEEDS AND INCLUDES PATIENT GOAL FOR HOME [...] End Date/Time Encounter Type Admission Type Attending [facility] Care Facility Care Department Encounter ID Discharge Date Discharge Status Discharge Condition Discharge Reason Percent Goals Met 2024-11-19 00:00:00 2025-01-17 00:00:00 Outpatient RECERTIFIC ATION ERIC EDDY [facility] [id number] 38.71
== END 2024-12-18 02:17 | disposition home or self-care (01) ==
PROVIDERS: Emergency Provider Emergency Medicine; PCP Family Medicine
DX: I10 Essential (primary) hypertension (principal); R51.9 Headache, unspecified; E11.9 Type 2 diabetes mellitus without complications; Z91.199 Patient's noncompliance with other medical treatment and regimen due to unspecified reason; E78.5 Hyperlipidemia, unspecified; D64.9 Anemia, unspecified; I25.10 Atherosclerotic heart disease of native coronary artery without angina pectoris; Z79.82 Long term (current) use of aspirin; Z79.4 Long term (current) use of insulin; Z79.899 Other long term (current) drug therapy; F17.210 Nicotine dependence, cigarettes, uncomplicated
CPT/HCPCS: 36415; 80053; 84484; 85025; 93005; 99283; 99284

== ENCOUNTER → 2024-12-17 21:10 | Outpatient (BNV) | payer MEDICAID, SELFPAY | PROVIDERS: Emergency Provider Emergency Medicine; PCP Family Medicine; Visit Provider Internal Medicine Cardiovascular Disease | DX: R94.31 Abnormal electrocardiogram [ECG] [EKG] (principal); I10 Essential (primary) hypertension | CPT/HCPCS: 93010 ==

== ENCOUNTER 2024-12-19 10:59 | Outpatient (AMB) | payer MEDICAID, SELFPAY ==
--- NOTE | 2024-12-19 11:03 | A.OFFVIS_ITS ---
Intake Visit Reasons: follow up to discuss vascular procedure Intake Note: Patient presents for vascular procedure discussion. Patient states she is having issues with her left leg, the leg is painful and it swells. Accompanied by: Daughter Allergies latex (LATEX) Allergy (Severe, Verified 12/19/24 11:05) RASH naproxen (From NAPROSYN) Adverse Reaction (Intermediate, Verified 12/19/24 11:05) TACHYCARDIA HPI HPI follow up to discuss vascular procedure: Details: Very pleasant 64-year-old female presents for follow-up with her daughter for carotid disease. She has known me for several years and we have done multiple vascular procedures including in November of 2022 right carotid endarterectomy she has developed high-grade left carotid stenosis. There appears to be some confusion in terms of cardiac risk stratification. Upon discussion with the patient she does not want to have CABG performed but is agreeable to percutaneous coronary intervention. Unclear what her overall risk is. At that time it was indicated that she was intermediate risk but anesthesia was not accepting of this. She was subsequently canceled. She now presents for follow- up. REPLACED BY [facility] Medical History Smoker Chronic anemia NSTEMI (non-ST elevated myocardial infarction) Mild aortic valve stenosis LORE (obstructive sleep apnea) Chronic low back pain Lumbar spinal stenosis HTN (hypertension) Vitamin D deficiency HLD (hyperlipidemia) T2DM (type 2 diabetes mellitus) H. pylori infection CAD (coronary artery disease) Cyst (solitary) of breast Kidney calculi Arthritis Asthma HTN (hypertension) Diabetes Surgical History Hx of vascular surgery (05/18/20) History of right-sided carotid endarterectomy (~11/2022) S/P aortogram History of esophagogastroduodenoscopy (EGD) Hx of colonoscopy History of breast surgery (~1983) History of cardiac cath Family History Mother Diabetes Liver cancer Social History Household Members: Family and Other Household Members Other:: friend and adult son Housing: Apartment Are you a primary anesthesiologist and critical care to a significant other at home: No Do you presently have visiting nurse or other home services: Yes Alcohol intake: never Comment: refuses bed alarm Patient Tobacco Use Status: Current everyday Tobacco user Tobacco use type: Cigarette Years Smoked: 44 e-Cigarette/Vaping Use: Currently Using Second Hand Smoke Exposure: Yes Advance Directives Date on File: 09/26/23 service: No Current occupational status: unemployed and disabled Review of Systems Const All systems reviewed & are unremarkable except as noted in HPI and below Reports no additional complaints ENT Reports Normal hearing present Card Denies chest pain, Denies chest pain at rest, Denies chest pain with activity and Denies pedal edema Resp Denies cough GI Denies abdominal pain Musc Denies abnormal gait, Denies muscle cramps and Denies radiating pain into limb Skin/Breast Denies skin ulcer and Denies wounds Neuro Reports Normal hearing present and Denies abnormal gait Psych Reports no additional complaints Physical Exam Const General: cooperative, healthy appearing and comfortable Orientation/consciousness: oriented to person, oriented to place and oriented to time HEENT Head: Yes normal to inspection Neck Neck: Yes normal visual inspection Carotids: no bruits Chest Chest palpation & inspection: normal inspection of the chest Resp Effort & Inspection: normal respiratory effort and able to speak in complete se ntences Auscultation: clear to auscultation bilaterally, no crackles, no rales, no rhonchi and no wheezes Cardio Rate: regular rate Rhythm: regular rhythm Heart sounds: S1 normal heart sound present and S2 normal heart sound present Bruits: no carotid bruits Peripheral pulses: Peripheral pulses 2+ throughout GI Inspection: Yes normal to inspection Skin Wounds: no wounds Hair: normal Neuro General: oriented to person, oriented to place and oriented to time Cranial nerves: Yes CN's II-XII intact bilaterally and Yes Normal hearing present Cognition (Neuro): normal cognition Motor exam (neuro): 5/5 motor strength present throughout Extrem Other: venous exam: No significant superficial varicosities or spider telangiectasi as, minimal edema General: No clubbing, No cyanosis and No edema Psych Appearance: grossly normal Mental Status: mental status grossly normal Speech and movement: Normal speech and movement present Results Reviewed Results Reviewed: CT angiogram of 10/15/2024 demonstrates left-sided carotid stenosis of 85% Assessment & Plan Assessment & Plan (1) Bilateral carotid artery stenosis: Comment: 11/28/2022 - right carotid endarterectomy Code(s): I65.23 - Occlusion and stenosis of bilateral carotid arteries Category: Medical Plan: We will rereferral to cardiology. Will need proper cardiac risk stratification. If stable we will schedule as soon as possible for carotid endarterectomy. This was discussed in detail with the patient and she was in agreement for this. Thank you for allowing us to assist in her care. (2) PAD (peripheral artery disease): Comment: 05/18/2020 - left fem-pop bypass 12/02/2020 - left angioplasty profundus femoris and popliteal inclusive is of distal anastomosis 05/17/2021 - right common iliac stent 04/13/2022 diagnostic angiogram Code(s): I73.9 - Peripheral vascular disease, unspecified Category: Medical Plan: Stable for now. Will need surveillance follow-up at some point. Orders: Referrals Cardiology Referral I65.23 - Occlusion and stenosis of bilateral carotid arteries Coding Level of Care Code Est Pt Level 4 (95029) Diagnoses Bilateral carotid artery stenosis I65.23 PAD (peripheral artery disease) I73.9
--- OUTSIDE RECORDS SUMMARY | 2025-01-16 19:00 | XMS_ITS | Clinical Summary ---
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 Active 09-21 00:00: 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 ELETS Active [...] release 24 hr 805 00:00: 00 Yes [id number] 60 mg AT BEDTIME 60 mg AT BEDTIME (route: oral) Med Classific ation: Cardiovas cular Therapy Agents oxycodone 5 mg tablet 09-04 00:00: 00 11-19 23:59 :00 No [id number] Unavailable 5 mg FIVE TIMES DAILY NEEDED 5 mg FIVE TIMES DAILY NEEDED (route: oral) Med Classific ation: Analgesic , Anti-infl ammatory or Antipyret ic gabapentin 600 mg tablet 09-03 00:00: 00 09-25 23:59 :00 No [id number] 600 mg 2 TIMES DAILY 600 mg 2 TIMES DAILY (route: oral) Med Classific ation: Central Nervous System Agents nicotine 21 mg/24 hr daily transdermal patch 08-30 00:00: 00 Yes [id number] Unavailable 21 mg DAILY 21 mg DAILY (route: transderma l) Med Classific ation: Chemical Dependenc y, Agents to Treat Alcohol Prep Pads 08-29 00:00: 00 05-18 23:59 :00 No [id number] 1 pads, medicat ed DIRECTED THREE TIMES DAILY AND NEEDED 1 pads, medicated DIRECTED THREE TIMES DAILY AND NEEDED (route: topical) Med Classific ation: Antisepti cs and Disinfect ants amitriptyli ne 50 mg tablet 08-29 00:00: 00 09-22 23:59 :00 No [id number] Unavailable 50 mg AT BEDTIME 50 mg AT BEDTIME (route: oral) Med Classific ation: Central Nervous System Agents Asmanex HFA 100 mcg/actuati on aerosol inhaler 08-29 00:00: 00 Yes [id number] 2 puff TWICE DAILY 2 puff TWICE DAILY (route: inhalation ) Med Classific ation: Respirato ry Therapy Agents atorvastati n 80 mg tablet 08-29 00:00: 00 Yes [id number] Unavailable 80 mg BEDTIME 80 mg BEDTIME (route: oral) Med Classific ation: Cardiovas cular Therapy Agents carvedilol 25 mg tablet 08-29 00:00: 00 Yes [id number] Unavailable 25 mg TWICE DAILY 25 mg TWICE DAILY (route: oral) Med Classific ation: Cardiovas cular Therapy Agents clopidogrel 75 mg tablet 08-29 00:00: 00 Yes [id number] 75 mg EVERY AM 75 mg EVERY AM (route: oral) Med Classific ation: Hematolog ical Agents docusate sodium 100 mg capsule 08-29 00:00: 00 09-25 23:59 :00 No [id number] Unavailable 100 mg TWICE DAILY 100 mg TWICE DAILY (route: oral) Med Classific ation: Gastroint estinal Therapy Agents escitalopra m 20 mg tablet 08-29 00:00: 00 Yes [id number] Unavailable 20 mg EVERY PM 20 mg EVERY PM (route: oral) Med Classific ation: Central Nervous System Agents FeroSul 325 mg (65 mg iron) tablet 08-29 00:00: 00 09-25 23:59 :00 No [id number] Unavailable 325 mg TWICE DAILY IN THE MORNING AND AT BEDTIME 325 mg TWICE DAILY IN THE MORNING AND AT BEDTIME (route: oral) Med Classific ation: Electroly te Balance-N utritiona l Products gabapentin 800 mg tablet 08-29 00:00: 00 09-22 23:59 :00 No [id number] 800 mg 2 TIMES DAILY 800 mg 2 TIMES DAILY (route: oral) Med Classific ation: Central Nervous System Agents hydralazine 25 mg tablet 08-29 00:00: 00 09-22 23:59 :00 No [id number] Unavailable 25 mg 3 TIMES DAILY 25 mg 3 TIMES DAILY (route: oral) Med Classific ation: Cardiovas cular Therapy Agents hydralazine 50 mg tablet 08-29 00:00: 00 09-25 23:59 :00 No [id number] Unavailable 50 mg THREE TIMES DAILY IN THE MORNING AT 50 mg THREE TIMES DAILY IN THE MORNING AT (route: oral) Med Classific ation: Cardiovas cular Therapy Agents mirtazapine 45 mg tablet 08-29 00:00: 00 Yes [id number] Unavailable 45 mg AT BEDTIME 45 mg AT BEDTIME (route: oral) Med Classific ation: Central Nervous System Agents omeprazole 20 mg capsule,del ayed release 08-29 00:00: 00 Yes [id number] 20 mg TWICE DAILY 20 mg TWICE DAILY (route: oral) Med Classific ation: Gastroint estinal Therapy Agents lisinopril 40 mg tablet 09-25 00:00: 00 Yes [id number] 40 mg DAILY 40 mg DAILY (route: oral) Med Classific ation: Cardiovas cular Therapy Agents metformin 1,000 mg tablet 09-25 00:00: 00 09-22 23:59 :00 No [id number] 1000 mg 2 TIMES DAILY 1000 mg 2 TIMES DAILY (route: oral) Med Classific ation: Endocrine multivitami n tablet 09-25 00:00: 00 Yes [id number] 1 tablet DAILY 1 tablet DAILY (route: oral) Med Classific ation: Electroly te Balance-N utritiona l Products nifedipine ER 60 mg tablet,exte nded release 09-25 00:00: 00 Yes [id number] 60 mg EVERY PM 60 mg EVERY PM (route: oral) Med Classific ation: Cardiovas cular Therapy Agents pioglitazon e 15 mg tablet 09-25 00:00: 00 Yes [id number] 15 mg DAILY 15 mg DAILY (route: oral) Med Classific ation: Endocrine Tresiba FlexTouch U-100 insulin 100 unit/mL (3 mL) subcutaneou s pen 09-25 00:00: 00 Yes [id number] 10 In unit DAILY 10 In unit DAILY (route: subcutaneo ) Med Classific ation: Endocrine aspirin 81 mg tablet 09-22 00:00: 00 Yes [id number] 1 tablet DAILY 1 tablet DAILY (route: oral) Med Classific ation: Hematolog ical Agents docusate sodium 100 mg capsule 09-22 00:00: 00 Yes [id number] 1 capsule 2 TIMES DAILY 1 capsule 2 TIMES DAILY (route: oral) Med Classific ation: Gastroint estinal Therapy Agents ferrous sulfate 325 mg (65 mg iron) tablet 09-22 00:00: 00 Yes [id number] 1 tablet 2 TIMES DAILY 1 tablet 2 TIMES DAILY (route: oral) Med Classific ation: Electroly te Balance-N utritiona l Products isosorbide mononitrate ER 30 mg tablet,exte nded release 24 hr 09-22 00:00: 00 Yes [id number] 1 tablet DAILY 1 tablet DAILY (route: oral) Med Classific ation: Cardiovas cular Therapy Agents Vital Signs Vital Name Observation Time Observation Value Commen ts Temperature 2024-12-18 11:58:00.000 97.5 [degF] Temperature 2024-12-17 [...] 98.1 [degF] Temperature 2024-11-19 22:31:00.000 97.5 [degF] Plan of Treatment Planned Activity [...] PRE-POUR MEDICATION PER MEDICATION LIST TILL NEXT MCC VISIT [code = SKILLED NURSE TO PRE-POUR MEDICATION PER MEDICATION LIST TILL NEXT MCC VISIT] Future Scheduled Test PATIENT MA Y [...] MEDICATIONS DAILY AND PRE-POUR MEDICATIONS TILL NEXT MCC VISIT PER MEDICATION LIST. [code = SKILLED NURSE TO ADMINISTER MEDICATIONS DAILY AND PRE-POUR MEDICATIONS TILL NEXT MCC VISIT PER MEDICATION LIST.] Future Scheduled Test [...] AWARENESS FOR SAFETY AND WILL NOTIFY CLINICAL MATERNAL FETAL PHYSICIAN AND PHYSICIAN/PROVIDER WITH ANY CHANGE IN CONDITION. [code = SKILLED NURSE WILL MAINTAIN SITUATIONAL AWARENESS FOR SAFETY AND WILL NOTIFY CLINICAL MATERNAL FETAL PHYSICIAN AND PHYSICIAN/PROVIDER WITH ANY CHANGE IN CONDITION.] [...] ADMINISTERED AND/OR PREPOURED PER MEDICATION PROFILE] Goal 2023-11-20 Patient Goal - LOWERING MY B LOOD PRESSURE Goal 2024-07-17 Patient Goal - LOWERING MY B LOOD PRESSURE Goal 2024-05-18 Patient Goal - LOWERING MY B LOOD PRESSURE Goal 2024-03-19 Patient Goal - LOWERING MY B LOOD PRESSURE Goal 2024-01-19 Patient Goal - LOWERING MY B LOOD PRESSURE Goal 2024-11-18 Patient Goal - TO HAVE LESS PAIN Goal Patient Goal - TO HAVE LESS PAIN Goal 2024-09-19 Patient Goal - LOWERING MY B LOOD PRESSURE Goal Provider Goal - A PLAN OF CARE WILL BE ESTABLISHED THAT MEETS PATIENT'S MCC NEEDS AND INCLUDES PATIENT GOAL FOR HOME [...] RECERTIFIC ATION ERIC EDDY [facility] [id number] 38.71
== END 2024-12-19 11:14 | disposition home or self-care (01) ==
LOC: HO.HVS 11:00
PROVIDERS: PCP Family Medicine; Visit Provider Surgery Vascular Surgery
DX: I65.23 Occlusion and stenosis of bilateral carotid arteries (principal); I73.9 Peripheral vascular disease, unspecified
CPT/HCPCS: 99214

== ENCOUNTER → 2024-12-19 10:59 | Outpatient (BNVA) | payer MEDICAID, SELFPAY | PROVIDERS: PCP Family Medicine; Visit Provider Surgery Vascular Surgery | DX: I65.23 Occlusion and stenosis of bilateral carotid arteries (principal); I73.9 Peripheral vascular disease, unspecified | CPT/HCPCS: 99212 ==

== ENCOUNTER 2024-12-31 13:29 | Outpatient (AMB) | payer MEDICAID, SELFPAY ==
--- OUTSIDE RECORDS SUMMARY | 2024-12-27 11:45 | XMS_ITS | Encounter Summary ---
Author Organization [employer] Address [address] [facility] [address] [place] [address] Care Team Providers Care Sales Performance Manager Name Role Phone Radha Jamison DO Primary Care Provider [phone] Nelia Sullivan PharmD Unavailable [phone] Reason for Visit * Reason Comments sick visit Encounter Details Date Type Department Care Team ([facility] Contact Info) Description 12/27/2024 11:45 AM EST Office Visit [facility] [address] [place] [address] Radha Jamison DO [address] [place] [address] Social History Tobacco Use Types Packs/Day Years Used Date Smoking Tobacco: Every Day Cigarettes 1 45.3 Started: 08/31/1979 Passive Smoke Exposure: Current Smokeless Tobacco: Never Alcohol Use Standard Drinks/Week Comments Never 0 (1 standard drink = 0.6 oz pur e alcohol) Depression Answer Date Recorded Patient Health Questionnaire-9 Score 16 11/15/2024 Patient Health Questionnaire-9 Score 16 11/15/2024 Last PHQ-9: Questionnaire Data Not on file 1 Housing Stability Answer Date Recorded What is [...] the past 12 months, has t he [employer], gas, oil or water company threatened to shut off services in your home? No 10/03/2024 Depression Answer Date Recorded Patient Health Questionnaire-2 Score 3 11/15/2024 Internet Access Answer Date Recorded Internet Access [...] Sign Reading Time Taken Comments Blood Pressure 154/76 12/27/2024 2:07 PM EST Pulse 86 12/27/2024 11:58 AM EST Temperature 36.4 C (97.6 F) 12/27/2024 11:58 AM EST Respiratory Rate 21 12/27/2024 11:5 8 AM EST Oxygen Saturation 98% 12/27/2024 11: 58 AM EST Inhaled Oxygen Concentration - - Weight 64.8 kg (142 lb 12.8 oz) 025 11:58 AM EST Height 152.4 cm (5') 12/27/2024 11:58 AM EST Body Mass Index 27.89 12/27/2024 11:58 AM EST documented in this encounter Plan of Treatment Upcoming Encounters Date Type Department Care Team (Late st Contact Info) Description 01/07/2025 10:00 AM EST Medication Management [facility] [address] [place] [address] Nelia Sullivan, PharmD [address] [place] [address] 03/13/2025 9:30 AM EST Office Visit [facility] [address] [place] [address] Radha Taylor, OD [address] [place] [address] documented as of this encounter Goals Goal Patient Goal Type Associated Problems Recent Progress Patient-Stated? Author Record your blood pressure once per day Blood Pressure No Nelia Sullivan PharmAdrian Blood Pressure < 140/90 Blood Pressure 154/76(2024 2:07 PM EST) No Nelia Sullivan, PharmAdrian Smoking cessation General No Nelia Sullivan PharmAdrian Patient will adhere to medication regimen General No Nelia Sullivan PharmD Hemoglobin A1c < 7 Result Component 10.1(12/07/19 12:48 PM EDT) No Abdias Murillo PharmD Record your blood sugar as directed Result Component No Nelia Sullivan PharmD Note: Use CGM, ensuring sensor is scanned at least once every 8 hours to capture 24H data. Check BG manually, as directed. Help patients manage their type 2 diabetes Care Plan Help patients manage their type 2 diabetes Meghana Quintana MA Weekly blood pressure task Care Plan Weekly blood pressure task No Meghana Carr MA Help patients manage their type 2 diabetes Care Plan Help patients manage their type 2 diabetes No Meghana Carr MA Patient has diabetic eye disease Care Plan Patient has diabetic eye disease No Meghana Carr MA Help patients manage their type 2 diabetes Care Plan Help patients manage their type 2 diabetes No Meghana Carr MA Patient has chronic kidney disease Care Plan Patient has chronic kidney disease No Meghana Carr MA Weekly blood pressure task Care Plan Weekly blood pressure task No Meghana Carr MA Weekly blood pressure task Care Plan Weekly blood pressure task No Meghana Carr MA Patient has diabetic eye disease Care Plan Patient has diabetic eye disease No Meghana Carr MA Patient has diabetic eye disease Care Plan Patient has diabetic eye disease No Meghana Carr MA Patient has chronic kidney disease Care Plan Patient has chronic kidney disease No Meghana Carr MA Patient has chronic kidney disease Care Plan Patient has chronic kidney disease No Meghana Carr MA Weekly blood pressure task Care Plan Weekly blood pressure task No Meghana Carr MA Weekly blood pressure task Care Plan Weekly blood pressure task No Meghana Carr MA Weekly blood pressure task Care Plan Weekly blood pressure task No Meghana Carr MA Patient has diabetic eye disease Care Plan Patient has diabetic eye disease No Meghana Carr MA Patient has diabetic eye disease Care Plan Patient has diabetic eye disease No Meghana Carr MA Patient has diabetic eye disease Care Plan Patient has diabetic eye disease No Meghana Carr MA Patient has chronic kidney disease Care Plan Patient has chronic kidney disease No Meghana Carr MA Patient has chronic kidney disease Care Plan Patient has chronic kidney disease No Meghana Carr MA Patient has chronic kidney disease Care Plan Patient has chronic kidney disease No Meghana Carr MA documented as of this encounter Visit Diagnoses Not on filedocumented in this encounter Additional Health Concerns Active Problems Noted Date Diagnosed Date Help patients manage their type 2 diabetes 12/25 Weekly blood pressure task 12/25/2024 Help patients manage their type 2 diabetes 12/25 Patient has diabetic eye disease 12/25/2024 Help patients manage their type 2 diabetes 12/25 Patient has chronic kidney disease 12/25/2024 Weekly blood pressure task 12/25/2024 Weekly blood pressure task 12/25/2024 Patient has diabetic eye disease 12/25/2024 Patient has diabetic eye disease 12/25/2024 Patient has chronic kidney disease 12/25/2024 Patient has chronic kidney disease 12/25/2024 Weekly blood pressure task 12/25/2024 Weekly blood pressure task 12/25/2024 Weekly blood pressure task 12/25/2024 Patient has diabetic eye disease 12/25/2024 Patient has diabetic eye disease 12/25/2024 Patient has diabetic eye disease 12/25/2024 Patient has chronic kidney disease 12/25/2024 Patient has chronic kidney disease 12/25/2024 Patient has chronic kidney disease 12/25/2024 Assessment Noted Time PHQ-9 Depression Total Score: 16 025 2:10 PM EDT documented as of this encounter Care Teams Sales Performance Manager Relationship Specialty Start Date End Date Radha Jamison DO [address], [place] [phone] PCP - General Family Medicine 01/26/12 Nelia Sullivan PharmD [address] [place] [address] Pharmacist Internal Medicine 08/31/23 Laurel Monterroso Acid LoaderPattern Hand 10/27/22 Saige Aguilar 09/26/23 documented as of this encounter
--- NOTE | 2024-12-31 13:55 | A.OFFVIS_ITS ---
Vital Signs 12/31/24 14:00 Height 5 ft Weight 138 lb 14.259 oz BMI 27.1 BP 120/60 Blood Pressure Location Lt brachial Position Sitting Pulse 72 Pulse Source Monitor Intake Visit Reasons: 2 mth fu KM/ re-eval for carotid surg/Margo Battery Tester And Repairer Required: Yes Battery Tester And Repairer Name: [id number] Allergies latex (LATEX) Allergy (Severe, Verified 12/19/24 11:05) RASH naproxen (From NAPROSYN) Adverse Reaction (Intermediate, Verified 12/19/24 11:05) TACHYCARDIA Medication List - Last Reconciled 12/31/24 by JACQUELINE Frazier albuterol sulfate 90 mcg/actuation (Ventolin HFA) 2 puffs inhalation Q6H PRN apixaban (Eliquis) 5 mg PO BID blood sugar diagnostic (FreeStyle Lite Strips) As directed carvedilol (Coreg) 25 mg PO BID clopidogrel (Plavix) 75 mg PO DAILY docusate sodium 100 mg PO BID empagliflozin-metformin 12.5-1,000 mg (Synjardy) 1 tab PO BID escitalopram oxalate (Lexapro) 20 mg PO DAILY@1800 ezetimibe 10 mg PO DAILY ferrous sulfate 325 mg PO BID PRN fluticasone propionate 50 mcg/actuation 2 sprays intranasal DAILY hydrochlorothiazide 50 mg PO DAILY insulin degludec (Tresiba FlexTouch U-100 insulin) 14 units subcut DAILY isosorbide mononitrate ER 30 mg PO DAILY mirtazapine 45 mg PO BEDTIME mometasone 100 mcg/actuation (Asmanex HFA) 2 puffs inhalation BID nifedipine ER 90 mg PO BEDTIME omeprazole 40 mg PO BIDWM@0800,1700 pioglitazone 15 mg PO DAILY 30 days rosuvastatin 40 mg PO DAILY semaglutide (Ozempic) 0.5 mg subcut FR telmisartan 80 mg PO DAILY HPI HPI 2 mth fu KM/ re-eval for carotid surg/Margo: Details: The patient is a 64-year-old female who presents for a follow-up of coronary artery disease and preoperative cardiovascular clearance for carotid surgery. She has a history of diffuse multivessel coronary disease, with a cardiac catheterization on 11/30/2023 showing 40% distal left main stenosis, 70-75% diffuse proximal and distal RCA stenosis, 70% ostial LAD stenosis with heavy ca lcification, and up to 70% circumflex stenosis. Her last echocardiogram on 08/27/2024 showed an EF of 64%, grade 2 diastolic dysfunction, moderate calcification of the aortic valve with mild to moderate aortic stenosis, and moderate mitral valve calcification. She is being followed by Dr. Aragon for vascular issues, including significant carotid artery disease. A carotid ultrasound from 10/15/2024 revealed 50-79% stenosis of the right internal carotid artery and 80-99% stenosis of the left internal carotid artery. Surgery for the left carotid artery is currently planned for 01/06/25 pending cardiac clearance. Her other medical history includes peripheral vascular disease with a prior lower extremity bypass surgery, with current claudication,, a history of smoking, hypertension, hyperlipidemia, and diabetes. Her current medications include Plavix and Eliquis. . She has had no new symptoms such as chest pain, pressure, or rapid heartbeats since her last visit 11/06/24. [facility] Medical History Smoker Chronic anemia NSTEMI (non-ST elevated myocardial infarction) Mild aortic valve stenosis LORE (obstructive sleep apnea) Chronic low back pain Lumbar spinal stenosis HTN (hypertension) Vitamin D deficiency HLD (hyperlipidemia) T2DM (type 2 diabetes mellitus) H. pylori infection CAD (coronary artery disease) Cyst (solitary) of breast Kidney calculi Arthritis Asthma HTN (hypertension) Diabetes Surgical History Hx of vascular surgery (05/18/20) History of right-sided carotid endarterectomy (~11/2022) S/P aortogram History of esophagogastroduodenoscopy (EGD) Hx of colonoscopy History of breast surgery (~1983) History of cardiac cath Family History Mother Diabetes Liver cancer Social History Household Members: Family and Other Household Members Other:: friend and adult son Housing: Apartment Are you a primary rn long term care to a significant other at home: No Do you presently have visiting nurse or other home services: Yes Alcohol intake: never Comment: refuses bed alarm Patient Tobacco Use Status: Current everyday Tobacco user Tobacco use type: Cigarette Cigarette Packs Per Day: 1 Cigarettes Per Day: 2 Years Smoked: 44 e-Cigarette/Vaping Use: Currently Using Second Hand Smoke Exposure: Yes Advance Directives Date on File: 09/26/23 service: No Current occupational status: unemployed and disabled Review of Systems Const All systems reviewed & are unremarkable except as noted in HPI and below Denies weakness ENT Denies dizziness Card Denies chest pain, Denies chest pain with activity, Denies syncope, Denies rapid heart rate, Denies pedal edema, Denies edema, Reports claudication, Denies leg edema, Denies lightheadedness, Denies palpitations, Denies dyspnea, Denies dyspnea on exertion and Denies orthopnea Resp Denies cough, Denies dyspnea and Denies dyspnea on exertion GI Denies hematochezia and Denies change in stool character Musc Reports abnormal gait, Reports back pain, Reports myalgias, Denies joint swelling, Denies muscle cramps, Denies muscle weakness, Denies numbness, Denies radiating pain into limb and Denies tingling Neuro Reports abnormal gait, Denies dizziness, Denies syncope, Denies numbness, Denies tingling and Denies weakness Endo Denies palpitations Physical Exam Vital Signs: Last Vital Signs Pulse 72 12/31/24 14:00 BP 120/60 12/31/24 14:00 BMI result Body Mass Index 27.1 Const General: cooperative, healthy appearing, comfortable and no acute distress Orientation/consciousness: patient oriented x3 Neck Other: bilateral carotid bruits noted - left >Right Neck: Yes normal visual inspection Resp Effort & Inspection: normal respiratory effort Auscultation: clear to auscultation bilaterally, no rales, no rhonchi and no wheezes Cardio Rate: regular rate Rhythm: regular rhythm Heart sounds: S1 normal heart sound present, S2 normal heart sound present, no gallops, no murmurs and no rubs Neuro General: patient oriented x3 Extrem General: Yes normal to inspection, No no pedal edema and No calf tenderness Psych Appearance: grossly normal Mental Status: mental status grossly normal Speech and movement: Normal speech and movement present Office Procedures EKG Details: Today, read by me, sinus rhythm with nonspecific ST and T-wave abnormality inferior lateral leads. No significant change from prior EKG, rate 72, QTC 444 milliseconds [id number], Complete Assessment & Plan Assessment & Plan (1) CAD (coronary artery disease): Comment: cath 2016, med managed Code(s): I25.10 - Atherosclerotic heart disease of resighini coronary artery without angina pectoris Category: Medical Plan: Significant coronary artery disease as seen on most recent catheterization 11/30/2023. She did have cardiac surgery evaluation. Surgery was postponed due to elevated hemoglobin A1c. Since then patient has decided to not undergo coronary artery bypass grafting. She is not having anginal symptoms at present. EKG today showing nonspecific ST and T-wave abnormalities, no significant change from prior. Going forward she need coronary artery stenting, PCI to the RCA then left circumflex and LAD. Continue Plavix and Eliquis. Continue isosorbide, carvedilol, nifedipine for good blood pressure control. Continue rosuvastatin with ideal LDL goal less than 70. (2) History of cardiac cath: Comment: 11/30/2023, distal left main 40%, diffuse proximal and distal RCA stenosis in the range of 70-75%, proximal LAD involving the ostium 70% stenosis heavy calcification, ecgh-jz-lyhyljzs diffuse disease in the LAD otherwise, circumflex has diffuse moderate stenosis with focal areas up to 70% stenosis. She was managed medically. NSTEMI at that time was thought to be related to elevated blood pressures. Code(s): Z98.890 - Other specified postprocedural states Category: Surgical (3) Bilateral carotid artery stenosis: Comment: 11/28/2022 - right carotid endarterectomy Code(s): I65.23 - Occlusion and stenosis of bilateral carotid arteries Category: Medical Plan: Known bilateral carotid stenosis. Bruits noted on examination. History of right carotid endarterectomy. Most recent ultrasound showing significant left carotid stenosis with plan for left carotid endarterectomy. (4) Preoperative cardiovascular examination: Code(s): Z01.810 - Encounter for preprocedural cardiovascular examination Category: Medical Plan: Preop for carotid endarterectomy scheduled for 01/06/[address] Aragon. Case reviewed with Dr. Daniel. She has known Multivessel coronary artery disease and has an intermediate to high risk for perioperative cardiac complications. Pt has been informed of this risk. She should remain on aspirin during perioperative period. Continue Rosuvastatin, carvedilol. Call/ Consult cardiology if needed (5) Hypertension: Code(s): I10 - Essential (primary) hypertension Category: Medical Plan: Blood pressure goal less than 130/80. Well controlled at this time. Medications reviewed and no changes are made. Plan I discussed with the patient that her proposed carotid surgery does carry a risk cardiac complications due to the tight narrowings in the coronary arteries. In addition to the carotid procedure, going forward she will need coronary artery stenting or if she changes her mind - coronary artery bypass grafting. I emphasized that taking no action on her carotids and coronary arteries, hsd risks of stroke and heart attack, and that it is best to try and fix these issues. I informed her that I will talk with Dr. Daniel and coordinate care and decide on the safest way to proceed with surgery. I advised her that no medication changes will be made at this time and to Let us know if she is experiencing any new chest discomfort or shortness of breath. Patient Instructions: - Continue taking all your current medications as prescribed. We are not making any changes today. - cardiology follow up in 2-3 months Patient was informed and verbally consented to the use of an ambient scribe for clinic note documentation during this visit. Visit time spent on chart review, interview, assessment, orders, documentation. Coding Level of Care Code Est Pt Level 4 (01127) Complex EM visit Add On G2211 Diagnoses CAD (coronary artery disease) I25.10 History of cardiac cath Z98.890 Bilateral carotid artery stenosis I65.23 Preoperative cardiovascular examination Z01.810 Hypertension I10 CPT Codes EKG - CPT: 63178-[id number], Complete ([id number]) Time Spent (min) 32
[2024-12-31 14:00] VITALS: BP 120/60; PULSE 72; BMI 27.1
--- OUTSIDE RECORDS SUMMARY | 2025-01-01 06:34 | XMS_ITS | Encounter Summary ---
Author Organization [employer] Address [address] [facility] 7[address] [place] [address] Care Team Providers Care Enrollment Consultant Name Role Phone Radha Jamison DO Primary Care Provider Nelia Sullivan PharmD Unavailable Letty Rinaldi Unavailable Dalila Carson RN Unavailable [phone] Ekta Reynolds Unavailable Reason for Visit * Reason Comments Med Refill Encounter Details Date Type Department Care Team (Late st Contact Info) Description 03/19/2024 Refill [facility] [address] [place], [place] [phone] Radha Jamison DO [address] [place], [place] [phone] Chronic bilateral low back pain, unspecified whether [...] Description 01/07/2025 10:00 AM EST Medication Management [facility] [address] [place] [address] Nelia Sullivan, PharmD [address] [place] [address] 03/13/2025 9:30 AM EST Office Visit [facility] [address] [place] [address] Radha Taylor, OD [address] [place] [address] documented as of this encounter Goals Goal Patient Goal Type Associated Problems Recent Progress Patient-Stated? Author Record your blood pressure once per day Blood Pressure No Puia, Nelia, PharmD Blood Pressure < 140/90 Blood Pressure 154/76(2024 2:07 PM EST) No Nelia Sullivan, PharmD Smoking cessation [...] documented as of this encounter Care Teams Enrollment Consultant Relationship Specialty Start Date End Date Radha Jamison DO [address] [place] [address] PCP - General Family Medicine 01/26/12 Nelia Sullivan PharmD [address] [place] [address] Pharmacist Internal Medicine 08/31/23 Letty Rinadli 12/16/24 12/18/24 Dalila Carson, JOANN [address] [place] [id number] Registered Nurse Family Medicine 12/31/24 Ekta Reynolds 12/31/24 Laurel Monterroso Paver InstallerBodybuilder 10/27/22 Saige Aguilar 09/26/23 documented as of this encounter
--- OUTSIDE RECORDS SUMMARY | 2025-01-01 06:34 | XMS_ITS | Encounter Summary ---
Author Organization [employer] Address [address] [facility] [address] [place] [address] Care Team Providers Care Student Worker Name Role Phone Radha Jamison DO Primary Care Provider Nelia Sullivan PharmD Unavailable Letty Rinaldi Unavailable Dalila Carson RN Unavailable [phone] Ekta Reynolds Unavailable Reason for Visit * Reason Onset Date Comments Med Refill 03/06/2024 Encounter Details Date Type Department Care Team (Late st Contact Info) Description 03/06/2024 Telephone [facility] [address] [place], [place] [phone] Radha Jamison DO [address] [place], [place] [phone] Med Refill Social History Tobacco Use Types [...] immediate release tablet To be sent to: [facility] pharmacy documented in this encounter Plan of Treatment Upcoming Encounters Date Type Department Care Team (Late st Contact Info) Description 01/07/2025 10:00 AM EST Medication Management [facility] [address] [place] [address] Nelia Sullivan, PharmD [address] [place] [address] 03/13/2025 9:30 AM EST Office Visit [facility] OPTOMETRY [address] [place] [address] Claudia Radha, OD [address] [place] [address] documented as of this encounter Goals Goal Patient Goal Type Associated Problems Recent Progress Patient-Stated? Author Record your blood pressure once per day Blood Pressure No Puia, Nelia, PharmD Blood Pressure < 140/90 Blood Pressure 154/76(2024 2:07 PM EST) No Puia, Nelia, PharmD Smoking cessation General No Puia, Nelia, PharmD Patient will adhere to medication regimen General No Puia, Nelia, PharmD Hemoglobin A1c < 7 Result Component 10.1(12/07/19 12:48 PM EDT) No DellogRod cottois, PharmD Record your blood [...] documented as of this encounter Care Teams Student Worker Relationship Specialty Start Date End Date Radha Jamison DO [address] [place] [address] PCP - General Family Medicine 01/26/12 Puia, Nelia, PharmD [address] [place] [address] Pharmacist Internal Medicine 08/31/23 Letty Rinaldi 12/16/24 12/18/24 Dalila Carson, JOANN [address] [place] [address] Registered Nurse Family Medicine 12/31/24 Ekta Reynolds 12/31/24 Laurel Monterroso Assistant Football CoachPatent Litigation Associate 10/27/22 Saige Aguilar 09/26/23 documented as of this encounter
--- OUTSIDE RECORDS SUMMARY | 2025-01-01 06:34 | XMS_ITS | Encounter Summary ---
Author Organization [employer] Address [address] [facility] [address] [place] [address] Care Team Providers Care Knockup Worker Name Role Phone Radha Jamison DO Primary Care Provider Nelia Sullivan PharmD Unavailable Letty Rinaldi Unavailable Dalila Carson RN Unavailable [phone] Ekta Reynolds Unavailable Reason for Visit * Reason Comments Med Refill Encounter Details Date Type Department Care Team (Late st Contact Info) Description 02/29/2024 Refill [facility] [address] [place], [place] [phone] Radha Jamison DO [address] [place], [place] [phone] Chronic bilateral low back pain, unspecified whether [...] until seen by PCP or seen by WEB PRESS OPERATOR ASSISTANT. Scheduled WEB PRESS OPERATOR ASSISTANT 03/05/24. documented in this encounter Plan of Treatment Upcoming Encounters Date Type Department Care Team (Late st Contact Info) Description 01/07/2025 10:00 AM EST Medication Management [facility] [address] [place] [address] Nelia Sullivan, PharmD [address] [place], [place] [phone] 03/13/2025 9:30 AM EST Office Visit [facility] [address] [place] [address] Radha Taylor, OD [address] [place] [address] documented as of this encounter Goals Goal [...] Result Component 10.1(12/07/19 12:48 PM EDT) No DellogonoAbdias, PharmD Record your blood sugar [...] documented as of this encounter Care Teams Knockup Worker Relationship Specialty Start Date End Date Radha Jamison DO [address] [place] [address] PCP - General Family Medicine 01/26/12 Puia, Nelia, PharmD [address] [place] [address] Pharmacist Internal Medicine 08/31/23 Letty Rinaldi 12/16/24 12/18/24 Dalila Carson RN [address] [place] [address] Registered Nurse Family Medicine 12/31/24 Ekta Reynolds 12/31/24 Laurel Monterroso Oracle Ascp ConsultantPearl Fisherman 10/27/22 Saige Aguilar 09/26/23 documented as of this encounter
--- OUTSIDE RECORDS SUMMARY | 2025-01-01 06:34 | XMS_ITS | Encounter Summary ---
Author Organization [employer] Address 75 [facility] 7t [place] [address] Care Team Providers Care Can Slider Name Role Phone Radha Jamison DO Primary Care Provider [phone] Nelia Sullivan PharmD Unavailable Letty Rinaldi Unavailable Dalila Carson RN Unavailable [phone] Ekta Reynolds Unavailable Reason for Visit * Reason Comments Med Refill Encounter Details Date Type Department Care Team (Late st Contact Info) Description 12/28/2023 Refill [facility] MEDICINE [address] [place], [place] [phone] Radha Jamison DO 230 [place], [place] [phone] Chronic bilateral low back pain, unspecified whether [...] Description 01/07/2025 10:00 AM EST Medication Management [facility] MEDICINE [address] [place] [address] Nelia Sullivan, PharmD 230 [place] [address] 03/13/2025 9:30 AM EST Office Visit [facility] OPTOMETRY [address] [place] [address] Radha Taylor, OD 267 [place] [address] documented as of this encounter Goals Goal [...] documented as of this encounter Care Teams Can Slider Relationship Specialty Start Date End Date Radha Jamison DO 230 [place] [address] PCP - General Family Medicine 01/26/12 Nelia Sullivan PharmD 230 [place] [address] Pharmacist Internal Medicine 08/31/23 Letty Rinaldi 12/16/24 12/18/24 Dalila Carson, JOANN [address] [place] [address] Registered Nurse Family Medicine 12/31/24 Ekta Reynolds 12/31/24 Laurel Monterroso Polystyrene Bead MolderBrake Drum Lathe Operator 10/27/22 Saige Aguilar 09/26/23 documented as of this encounter
--- OUTSIDE RECORDS SUMMARY | 2025-01-01 06:34 | XMS_ITS | Encounter Summary ---
Author Organization [employer] Address [address] [facility] 7t [place] [address] Care Team Providers Care Distribution District Supervisor Name Role Phone Radha Jamison DO Primary Care Provider Nelia Sullivan PharmD Unavailable [phone] Letty Rinaldi Unavailable Dalila Carson RN Unavailable [phone] Ekta Reynolds Unavailable Reason for Visit * Reason Onset Date Comments Nurse Triage 10/07/2024 Encounter Details Date Type Department Care Team (Late st Contact Info) Description 10/07/2024 Telephone [facility] MEDICINE 230 [place], [place] [phone] Radha Jamison DO 230 [place], [place] [phone] Nurse Triage Social History Tobacco Use Types [...] 10/07/2024 12:10 PM EDT Triage call with [facility] telecommunications field engineer [place] [id number] Pt reports swelling of bilateral lower extremities [...] advised to come to the WIC at [facility] to be seen by provider open [...] caller accepted this outcome. Contact pt at [phone] documented in this encounter Plan of Treatment Upcoming Encounters Date Type Department Care Team (Late st Contact Info) Description 01/07/2025 10:00 AM EST Medication Management [facility] MEDICINE 230 [place] [address] Puia, Nelia, PharmD 230 [place] [address] 03/13/2025 9:30 AM EST Office Visit [facility] OPTOMETRY [address] [place] [address] Radha Taylor, OD 267 [place] [address] documented as of this encounter Goals Goal [...] Hemoglobin A1c < 7 Result Component 10.1(12/07/19 25 12:48 PM EDT) No Abdias Murillo PharmD [...] documented as of this encounter Care Teams Distribution District Supervisor Relationship Specialty Start Date End Date Radha Jamison DO 230 [place] [address] PCP - General Family Medicine 01/26/12 Nelia Sullivan PharmD [address] [place] [address] Pharmacist Internal Medicine 08/31/23 Letty Rinaldi 12/16/24 12/18/24 Dalila Carson, JOANN [address] [place] [address] Registered Nurse Family Medicine 12/31/24 Ekta Reynolds 12/31/24 Laurel Monterroso Fuel HandlerAccount Resolution Specialist 10/27/22 Saige Aguilar 09/26/23 documented as of this encounter
--- OUTSIDE RECORDS SUMMARY | 2025-01-01 06:34 | XMS_ITS | Encounter Summary ---
Author Organization [employer] Address 75 [facility] 7t [place] [address] Care Team Providers Care Fruit Or Nut Picker Name Role Phone Radha Jamison DO Primary Care Provider Nelia Sullivan PharmD Unavailable Letty Rinaldi Unavailable Dalila Carson RN Unavailable Ekta Reynolds Unavailable Reason for Visit * Reason Comments Med Refill Encounter Details Date Type Department Care Team (Late st Contact Info) Description 03/05/2024 Telephone [facility] MEDICINE [address] [place], [place] [phone] Radha Jamison DO 230 [place], [place] [phone] Med Refill Social History Tobacco Use Types [...] Description 01/07/2025 10:00 AM EST Medication Management [facility] MEDICINE 230 [place] [address] Nelia Sullivan PharmD 230 [place] [address] 03/13/2025 9:30 AM EST Office Visit [facility] OPTOMETRY [address] [place] [address] Radha Taylor, OD 267 [place] [address] documented as of this encounter Goals Goal [...] as of this encounter Care Teams Fruit Or Nut Picker Relationship Specialty Start Date End Date Radha Jamison DO 230 [place] [address] PCP - General Family Medicine 01/26/12 Nelia Sullivan PharmD [address] [place] [address] Pharmacist Internal Medicine 08/31/23 Letty Rinaldi 12/16/24 12/18/24 Dalila Carson, JOANN [address] [place] [address] Registered Nurse Family Medicine 12/31/24 Ekta Reynolds 12/31/24 Laurel Monterroso Dumper Central Concrete Mixing PlantNnps 10/27/22 Saige Aguilar 09/26/23 documented as of this encounter
--- OUTSIDE RECORDS SUMMARY | 2025-01-01 06:35 | XMS_ITS ---
Author Organization [employer] Address 75 [facility] 7t [place] [address] Care Team Providers Care Retail Financial Analyst Name Role Phone Radha Jamison DO Primary Care Provider Nelia Sullivan PharmD Unavailable [phone] Dalila Carson RN Unavailable [phone] Ekta Reynolds Unavailable CHW Complex Status:Outreach In Progress (Enrolling) Start date:12/31/2024 Enrollment reason:Referred by provider Overview Home Health Utilization- Please coordinate with Dalila for connection of services with NURSING INSTRUCTOR for mcfp reduction. Please outreach for enrollment. Case Team Name Relationship Phone Ekta Reynolds(Responsible Staff) [phone] Continued Care and Services Coordination
--- OUTSIDE RECORDS SUMMARY | 2025-01-01 06:35 | XMS_ITS | Encounter Summary ---
Author Organization [employer] Address 75 [facility] 7t [place] [address] Care Team Providers Care Manager Program Name Role Phone Radha Jamison DO Primary Care Provider Abdias Murillo PharmD Unavailable Unavail able Nelia Sullivan PharmD Unavailable [phone] Letty Rinaldi Unavailable Dalila Carson RN Unavailable [phone] Ekta Reynolds Unavailable Reason for Visit * Reason Onset Date Comments uber 05/08/2023 Encounter Details Date Type Department Care Team (Late st Contact Info) Description 05/08/2023 Telephone [facility] MEDICINE 230 [place], [place] [phone] Radha Jamison DO 230 [place], [place] [phone] uber Social History Tobacco Use Types Packs/Day [...] / denial letter via mail. PT-1 Request [id number] Pending . [facility] [address] [place] [address] Brand Protection Manager noticed pt has pending referrals. Brand Protection Manager has added a note to each to add PT1 for referred tooffice. * Telephone Encounter - Ginna Stephen RN - 05/10/2023 9:31 AM EDT Uber booked for tomorrow 8:45am. TC placed to pt. And made pt. Aware. Pt. Also reports PT-1 expiredand would like it renewed for next time, to [facility] * Telephone Encounter - Ciera Carson - 05/10/2023 9:07 AM EDT Tc from pt calling in regards to message above. Pt also received a call, process description writer does not see any documentation. Please contact pt at [phone] * Telephone Encounter - Ciera Alli - 05/08/2023 12:54 PM EDT Tc from pt states will need uber transportation for 05/10 with provider. Please contact pt at [phone] documented in this encounter Plan of Treatment Upcoming Encounters Date Type Department Care Team (Late st Contact Info) Description 01/07/2025 10:00 AM EST Medication Management [facility] MEDICINE 230 [place] [address] Nelia Sullivan PharmD 230 [place] [address] 03/13/2025 9:30 AM EST Office Visit [facility] OPTOMETRY 267 [place] [address] Radha Taylor, OD 267 [place] [address] documented as of this encounter Goals Goal Patient Goal Type Associated Problems Recent Progress Patient-Stated? Author Hemoglobin A1c < 7 Result Component 10.1( 12:48 PM EDT) No Abdias Murillo, PharmD documented as of this encounter Visit Diagnoses Not on filedocumented in this encounter Additional Health Concerns Assessment Noted Time PHQ-9 Depression Total Score: 4 11/09/19 23 11:27 AM EDT documented as of this encounter Care Teams Manager Program Relationship Specialty Start Date End Date Radha Jamison DO [address] [place] [address] PCP - General Family Medicine 01/26/12 Abdias Murillo, PharmD [address] [place] [address] Pharmacist Internal Medicine 03/21/22 08/30/23 Nelia Sullivan PharmD [address] [place] [address] Pharmacist Internal Medicine 08/31/23 Letty Rinaldi 12/16/24 12/18/24 Dalila Carson, RN [address] [place] [address] Registered Nurse Family Medicine 12/31/24 Ekta Reynolds 12/31/24 Laurel Monterroso ShinglerSpindle Maker 10/27/22 Saige Aguilar 09/26/23 documented as of this encounter
--- OUTSIDE RECORDS SUMMARY | 2025-01-01 06:36 | XMS_ITS | Encounter Summary ---
Author Organization [employer] Address 75 [facility] 7t [place] [address] Care Team Providers Care Hand Washer Name Role Phone Radha Jamison DO Primary Care Provider [phone] Abdias Murillo PharmD Unavailable Unavail able Nelia Sullivan PharmD Unavailable Letty Rinaldi Unavailable Dalila Carson RN Unavailable [phone] Ekta Reynolds Unavailable Reason for Visit * Reason Comments Med Refill Encounter Details Date Type Department Care Team (Late st Contact Info) Description 04/14/2023 Refill [facility] 230 [place], [place] [phone] Radha Jamison DO 230 [place], [place] [phone] Type 2 diabetes mellitus with hyperglycemia, with long-term current use of insulin ([facility]) Social History Tobacco Use Types [...] Description 01/07/2025 10:00 AM EST Medication Management [facility] 230 [place] [address] Nelia Sullivan PharmD 230 [place] [address] 03/13/2025 9:30 AM EST Office Visit [facility] OPTOMETRY [address] [place] [address] TarkaRadha, OD 267 [place] [address] documented as of this encounter Goals Goal [...] as of this encounter Care Teams Hand Washer Relationship Specialty Start Date End Date Jurcsak, Radha, DO 230 [place], [place] [phone] PCP - General Family Medicine 01/26/12 Abdias Murillo, KeithD 230 [place] [address] Pharmacist Internal Medicine 03/21/22 08/30/23 Nelia Sullivan PharmD 230 [place] [address] Pharmacist Internal Medicine 08/31/23 Letty Rinaldi 12/16/24 12/18/24 Dalila Carson, JOANN [address] [place] [address] Registered Nurse Family Medicine 12/31/24 Ekta Reynolds 12/31/24 Laurel Monterroso Truck Railroad And Bus Motor MechanicHighway Research Engineer 10/27/22 Saige Aguilar 09/26/23 documented as of this encounter
--- OUTSIDE RECORDS SUMMARY | 2025-01-01 06:36 | XMS_ITS | Encounter Summary ---
Author Organization [employer] Address 75 [facility] 7t [place] [address] Care Team Providers Care Fence Making Machine Operator Name Role Phone Radha Jamison DO Primary Care Provider Nelia Sullivan PharmD Unavailable Letty Rinaldi Unavailable Dalila Carson RN Unavailable [phone] Ekta Reynolds Unavailable Reason for Visit * Reason Onset Date Comments Returning Call 01/17/2024 Hospital Follow-up 01/17/2024 Encounter Details Date Type Department Care Team (Late st Contact Info) Description 01/17/2024 Telephone [facility] MEDICINE 230 [place], [place] [phone] Radha Jamison DO 230 [place], [place] [phone] Returning Call ; Hospital Follow-up Social History [...] Description 01/07/2025 10:00 AM EST Medication Management [facility] MEDICINE 230 [place] [address] Nelia Sullivan, PharmD 230 [place], [place] [phone] 03/13/2025 9:30 AM EST Office Visit [facility] OPTOMETRY 267 [place], [place] [phone] Radha Taylor, OD 267 [place] [address] documented as of this encounter Goals Goal Patient Goal Type Associated Problems Recent Progress Patient-Stated? Author Record your blood pressure once per day Blood Pressure No Puia, Nelia, PharmD Blood Pressure < 140/90 Blood Pressure 154/76(2024 2:07 PM EST) No Puia, Nelia, PharmD Smoking cessation General No Puia Nelia, PharmD Patient will adhere to medication regimen General No Puia Nelia, PharmD Hemoglobin A1c < 7 Result Component 10.1(12/07/19 25 12:48 PM EDT) No DelAbdias hardy, PharmD Record [...] documented as of this encounter Care Teams Fence Making Machine Operator Relationship Specialty Start Date End Date Radha Jamison DO 230 [place] [address] PCP - General Family Medicine 01/26/12 Puia, Nelia, PharmD 230 [place], [place] [phone] Pharmacist Internal Medicine 08/31/23 Letty Rinaldi 12/16/24 12/18/24 Dalila Carson RN 505 [place] [address] Registered Nurse Family Medicine 12/31/24 Ekta Reynolds 12/31/24 Laurel Monterroso Tax Services InternFiberglass Machine Operator 10/27/22 Saige Aguilar 09/26/23 documented as of this encounter
--- OUTSIDE RECORDS SUMMARY | 2025-01-01 06:36 | XMS_ITS ---
Author Organization [employer] Address 75 [facility] 7t [place] [address] Care Team Providers Care Radio Television Technical Director Name Role Phone Radha Jamison DO Primary Care Provider Nelia Sullivan PharmD Unavailable [phone] Dalila Carson RN Unavailable [phone] Ekta Reynolds Unavailable CM Complex Status:Outreach In Progress (Enrolling) Start date:12/31/2024 Enrollment reason:Referred by provider Overview Home Health Utilization- Please coordinate with Dalila for connection of services with CLERK TRAVEL RESERVATIONS for custodial reduction. Case Team Name Relationship Phone Dalila Carson RN(Responsible Staff) Registered Nurse [phone] Continued Care and Services Coordination
--- OUTSIDE RECORDS SUMMARY | 2025-01-01 06:36 | XMS_ITS | Encounter Summary ---
Author Organization [employer] Address 75 [facility] 7t [place] [address] Care Team Providers Care Advertising Space Clerk Name Role Phone Radha Jamison DO Primary Care Provider Abdias Murillo PharmD Unavailable Unavail able Nelia Sullivan PharmD Unavailable [phone] Letty Rinaldi Unavailable Dalila Carson RN Unavailable [phone] Ekta Reynolds Unavailable Reason for Visit * Reason Comments Med Refill Encounter Details Date Type Department Care Team (Late st Contact Info) Description 04/14/2023 Refill [facility] MEDICINE 230 [place], [place] [phone] Radha Jamison DO 230 [place], [place] [phone] Type 2 diabetes mellitus with hyperglycemia, with long-term current use of insulin ([facility]) Social History Tobacco Use Types Packs/Day [...] Description 01/07/2025 10:00 AM EST Medication Management [facility] MEDICINE [address] [place] [address] Nelia Sullivan PharmD 230 [place] [address] 03/13/2025 9:30 AM EST Office Visit [facility] OPTOMETRY 267 [place] [address] TarkaRadha, OD 267 [place] [address] documented as of this encounter Goals Goal [...] documented as of this encounter Care Teams Advertising Space Clerk Relationship Specialty Start Date End Date Jurcsak, Radha, DO 230 [place], [place] [phone] PCP - General Family Medicine 01/26/12 Abdias Murillo, KeithD 230 [place] [address] Pharmacist Internal Medicine 03/21/22 08/30/23 Nelia Sullivan PharmD 230 [place] [address] Pharmacist Internal Medicine 08/31/23 Letty Rinaldi 12/16/24 12/18/24 Dalila Carson, JOANN [address] [place] [address] Registered Nurse Family Medicine 12/31/24 Ekta Reynolds 12/31/24 Laurel Monterroso Draw Frame TenderCut Off Saw Operator Pipe Blanks 10/27/22 Saige Aguilar 09/26/23 documented as of this encounter
--- OUTSIDE RECORDS SUMMARY | 2025-01-01 06:36 | XMS_ITS | Encounter Summary ---
Author Organization [employer] Address 75 [facility] 7t [place] [address] Care Team Providers Care Machine I Coremaker Name Role Phone Radha Jamison DO Primary Care Provider [phone] Nelia Sullivan PharmD Unavailable Letty Rinaldi Unavailable Dalila Carson RN Unavailable Ekta Reynolds Unavailable Reason for Visit * Reason Comments Med Refill Encounter Details Date Type Department Care Team (Late st Contact Info) Description 01/06/2024 Refill [facility] MEDICINE 230 [place], [place] [phone] Radha Jamison DO 230 [place], [place] [phone] Depression, unspecified depression type; Essential (primary) hypertension [...] Description 01/07/2025 10:00 AM EST Medication Management [facility] MEDICINE 230 [place] [address] Nelia Sullivan, PharmD 230 [place] [address] 03/13/2025 9:30 AM EST Office Visit [facility] OPTOMETRY 267 [place] [address] Radha Taylor, OD 267 [place] [address] documented as of this encounter Goals Goal Patient Goal Type Associated Problems Recent Progress Patient-Stated? Author Record your blood pressure once per day Blood Pressure No Nelia Sullivan PharmD Blood Pressure < 140/90 Blood Pressure 154/76(2024 2:07 PM EST) No Nelia Sullivan PharmD Smoking cessation [...] as of this encounter Care Teams Machine I Coremaker Relationship Specialty Start Date End Date Radha Jamison DO 230 [place] [address] PCP - General Family Medicine 01/26/12 Nelia Sullivan PharmD 230 [place] [address] Pharmacist Internal Medicine 08/31/23 Letty Rinaldi 12/16/24 12/18/24 Dalila Carson, JOANN [address] [place] [address] Registered Nurse Family Medicine 12/31/24 Ekta Reynlods 12/31/24 Laurel Monterroso Butt MakerDischarging Machine Operator 10/27/22 Saige Aguilar 09/26/23 documented as of this encounter
--- OUTSIDE RECORDS SUMMARY | 2025-01-01 06:36 | XMS_ITS | Encounter Summary ---
Author Organization [employer] Address 75 [facility] 7t [place] [address] Care Team Providers Care Mold Carrier Name Role Phone Radha Jamison DO Primary Care Provider [phone] Nelia Sullivan PharmD Unavailable Letty Rinaldi Unavailable Dalila Carson RN Unavailable Ekta Reynolds Unavailable Reason for Visit * Reason Comments Med Refill Encounter Details Date Type Department Care Team (Late st Contact Info) Description 05/17/2024 Refill [facility] MEDICINE 230 [place], [place] [phone] Radha Jamison DO [address] [place], [place] [phone] Chronic bilateral low back pain, unspecified whether [...] 10:00 AM EST Medication Management [facility] MEDICINE 230 [place] [address] Nelia Sullivan, PharmD [address] [place] [address] 03/13/2025 9:30 AM EST Office Visit [facility] OPTOMETRY [address] [place] [address] Radha Taylor, OD [address] [place] [address] documented as of this encounter Goals Goal [...] as of this encounter Care Teams Mold Carrier Relationship Specialty Start Date End Date Radha Jamison DO [address] [place] [address] PCP - General Family Medicine 01/26/12 Nelia Sullivan PharmD [address] [place] [address] Pharmacist Internal Medicine 08/31/23 Letty Rinaldi 12/16/24 12/18/24 Dalila Carson, JOANN [address] [place] [address] Registered Nurse Family Medicine 12/31/24 Ekta Reynolds 12/31/24 Laurel Monterroso Mixed Livestock Farm WorkerSafety Coordinator 10/27/22 Saige Aguilar 09/26/23 documented as of this encounter
--- OUTSIDE RECORDS SUMMARY | 2025-01-01 06:37 | XMS_ITS | Encounter Summary ---
Author Organization [employer] Address 75 [facility] 7t [place] [address] Care Team Providers Care Hand Inserter Operator Name Role Phone Radha Jamison DO Primary Care Provider Nelia Sullivan PharmD Unavailable Letty Rinaldi Unavailable Dalila Carson RN Unavailable [phone] Ekta Reynolds Unavailable Reason for Visit * Reason Comments Med Refill Encounter Details Date Type Department Care Team (Late st Contact Info) Description 05/07/2024 Refill [facility] MED[facility]INE 230 [place], [place] [phone] Radha Jamison DO 230 [place], [place] [phone] Social History Tobacco Use Types Packs/Day Years [...] EST Medication Management [facility] 230 [place] [address] Nelia Sullivan PharmD 230 [place] [address] 03/13/2025 9:30 AM EST Office Visit [facility] OPTOMETRY [address] [place] [address] Radha Taylor, OD [address] [place] [address] documented as of this encounter Goals Goal Patient Goal Type Associated Problems Recent Progress Patient-Stated? Author Record your blood pressure once per day Blood Pressure No Nelia Sullivan, PharmD Blood Pressure < 140/90 Blood Pressure 154/76(2024 2:07 PM EST) No AnaiiaYazminsa, PharmD Smoking cessation General No Puia, Nelia, PharmD Patient will adhere to medication regimen General No PuiaFeliceNelia, PharmD Hemoglobin A1c < 7 Result Component 10.1(12/07/19 12:48 PM EDT) No DellogAbdias cotto, PharmD Record [...] as of this encounter Care Teams Hand Inserter Operator Relationship Specialty Start Date End Date Radha Jamison DO [address] [place] [address] PCP - General Family Medicine 01/26/12 Nelia Sullivan, PharmD 230 [place] [address] Pharmacist Internal Medicine 08/31/23 Letty Rinaldi 12/16/24 12/18/24 Dalila Carson, JOANN [address] [place] [address] Registered Nurse Family Medicine 12/31/24 Ekta Reynolds 12/31/24 Laurel Monterroso Brim MolderTowboat Captain 10/27/22 Saige Aguilar 09/26/23 documented as of this encounter
--- OUTSIDE RECORDS SUMMARY | 2025-01-01 06:37 | XMS_ITS | Encounter Summary ---
Author Organization [employer] Address 75 [facility] 7t [place] [address] Care Team Providers Care Human Relations Teacher Name Role Phone Radha Jamison DO Primary Care Provider Nelia Sullivan PharmD Unavailable [phone] Letty Rinaldi Unavailable Dalila Carson RN Unavailable [phone] Ekta Reynolds Unavailable Reason for Visit * Reason Comments Med Refill Encounter Details Date Type Department Care Team (Late st Contact Info) Description 05/17/2024 Refill [facility] MEDICINE 230 [place], [place] [phone] Radha Jamison DO 230 [place], [place] [phone] Chronic bilateral low back pain, unspecified whether [...] Description 01/07/2025 10:00 AM EST Medication Management [facility] MEDICINE 230 [place] [address] Nelia Sullivan, PharmD 230 [place] [address] 03/13/2025 9:30 AM EST Office Visit [facility] OPTOMETRY [address] [place] [address] Radha Taylor, OD 267 [place] [address] documented as of this encounter Goals Goal [...] as of this encounter Care Teams Human Relations Teacher Relationship Specialty Start Date End Date Radha Jamison DO 230 [place] [address] PCP - General Family Medicine 01/26/12 Nelia Sullivan PharmD 230 [place] [address] Pharmacist Internal Medicine 08/31/23 Letty Rinaldi 12/16/24 12/18/24 Dalila Carson, JOANN [address] [place] [address] Registered Nurse Family Medicine 12/31/24 Ekta Reynolds 12/31/24 Laurel Monterroso Retort Furnace HelperProduction Operations Engineer 10/27/22 Saige Aguilar 09/26/23 documented as of this encounter
--- OUTSIDE RECORDS SUMMARY | 2025-01-01 06:37 | XMS_ITS | Encounter Summary ---
Author Organization [employer] Address [address] [facility] 7t [place] [address] Care Team Providers Care Title Clerk Name Role Phone Radha Jamison DO Primary Care Provider Nelia Sullivan PharmD Unavailable Letty Rinaldi Unavailable Dalila Carson RN Unavailable [phone] Ekta Reynolds Unavailable Reason for Visit * Reason Onset Date Comments Med Refill 05/07/2024 Encounter Details Date Type Department Care Team (Late st Contact Info) Description 05/07/2024 Telephone [facility] MEDICINE [address] [place], [place] [phone] Radha Jamison DO [address] [place], [place] [phone] Med Refill Social History Tobacco Use Types [...] immediate release tablet To be sent to: [facility] Pharmacy documented in this encounter Plan of Treatment Upcoming Encounters Date Type Department Care Team (Late st Contact Info) Description 01/07/2025 10:00 AM EST Medication Management [facility] MEDICINE [address] [place] [address] Nelia Sullivan, PharmD [address] [place] [address] 03/13/2025 9:30 AM EST Office Visit [facility] OPTOMETRY [address] [place], [place] [phone] Anamerritt Radha, OD [address] [place] [address] documented as of this encounter Goals Goal [...] documented as of this encounter Care Teams Title Clerk Relationship Specialty Start Date End Date Radha Jamison DO [address] [place] [address] PCP - General Family Medicine 01/26/12 Puia, Nelia, PharmD [address] [place], [place] [phone] Pharmacist Internal Medicine 08/31/23 Letty Rinaldi 12/16/24 12/18/24 Dalila Carson RN [address] [place] [address] Registered Nurse Family Medicine 12/31/24 Ekta Reynolds 12/31/24 Laurel Monterroso Concrete Crusher Loader OperatorPricing Intern 10/27/22 Saige Aguilar 09/26/23 documented as of this encounter
--- OUTSIDE RECORDS SUMMARY | 2025-01-01 06:38 | XMS_ITS | Encounter Summary ---
Author Organization [employer] Address [address] [facility] 7t [place] [address] Care Team Providers Care Digital Advertising Specialist Name Role Phone Radha Jamison DO Primary Care Provider Abdias Murillo PharmD Unavailable Unavail able Nelia Sullivan PharmD Unavailable Letty Rinaldi Unavailable Dalila Carson RN Unavailable [phone] Ekta Reynolds Unavailable Reason for Visit * Reason Comments Med Refill Encounter Details Date Type Department Care Team (Late st Contact Info) Description 06/06/2023 Refill [facility] [address] [place], [place] [phone] Radha Jamison DO [address] [place] [address] Chronic bilateral low back pain, unspecified whether [...] Description 01/07/2025 10:00 AM EST Medication Management [facility] [address] [place] [address] Nelia Sullivan PharmD [address] [place] [address] 03/13/2025 9:30 AM EST Office Visit [facility] OPTOMETRY [address] [place] [address] Tarka, Radha, OD [address] [place] [address] documented as of this encounter Goals Goal [...] as of this encounter Care Teams Digital Advertising Specialist Relationship Specialty Start Date End Date Radha Jamison DO [address] [place] [address] PCP - General Family Medicine 01/26/12 Abdias Murillo, PharmD [address] [place] [address] Pharmacist Internal Medicine 03/21/22 08/30/23 Nelia Sullivan, KeithD [address] [place] [address] Pharmacist Internal Medicine 08/31/23 Letty Rinaldi 12/16/24 12/18/24 Dalila Carson, JOANN [address] [place] [phone] Registered Nurse Family Medicine 12/31/24 Ekta Reynolds 12/31/24 Laurel Monterroso Gut CleanerMonomer Recovery Supervisor 10/27/22 Saige Aguilar 09/26/23 documented as of this encounter
--- OUTSIDE RECORDS SUMMARY | 2025-01-01 06:38 | XMS_ITS | Encounter Summary ---
Author Organization [employer] Address [address] [facility] 7t [place] [address] Care Team Providers Care Inside Sales Person Name Role Phone Radha Jamison DO Primary Care Provider [phone] Abdias Murillo PharmD Unavailable Unavail able Nelia Sullivan PharmD Unavailable Letty Rinaldi Unavailable Dalila Carson RN Unavailable [phone] Ekta Reynolds Unavailable Reason for Visit * Reason Comments Med Refill Encounter Details Date Type Department Care Team (Late st Contact Info) Description 08/11/2022 Refill [facility] MEDICINE [address] [place], [place] [phone] Radha Jamison DO [address] [place], [place] [phone] Anemia, unspecified type Social History Tobacco Use [...] for patient to contact Mary Reynolds at [phone]. documented in this encounter Plan of Treatment Upcoming Encounters Date Type Department Care Team (Late st Contact Info) Description 01/07/2025 10:00 AM EST Medication Management [facility] MEDICINE [address] [place] [address] Nelia Sullivan PharmD [address] [place] [address] 03/13/2025 9:30 AM EST Office Visit [facility] OPTOMETRY [address] [place] [address] Tarka, Radha, OD [address] [place] [address] documented as of this encounter Goals Goal Patient Goal Type Associated Problems Recent Progress Patient-Stated? Author Hemoglobin A1c < 7 Result Component 10.1( 12:48 PM EDT) No Abdias Murillo PharmD documented as of this encounter Visit Diagnoses Diagnosis Anemia, unspecified type documented in this encounter Additional Health Concerns Assessment Noted Time PHQ-9 Depression Total Score: 14 023 12:00 PM EST documented as of this encounter Care Teams Inside Sales Person Relationship Specialty Start Date End Date Radha Jamison DO [address] [place] [address] PCP - General Family Medicine 01/26/12 Abdias Murillo, PharmD [address] [place] [address] Pharmacist Internal Medicine 03/21/22 08/30/23 Nelia Sullivan, KeithD [address] [place] [address] Pharmacist Internal Medicine 08/31/23 Letty Rinaldi 12/16/24 12/18/24 Dalila Carson, RN [address] [place] [address] Registered Nurse Family Medicine 12/31/24 Ekta Reynolds 12/31/24 Laurel Monterroso Land AppraiserRetail Sales Representative 10/27/22 Saige Aguilar 09/26/23 documented as of this encounter
--- OUTSIDE RECORDS SUMMARY | 2025-01-01 06:38 | XMS_ITS | Encounter Summary ---
Author Organization [employer] Address [address] [facility] 7t [place] [address] Care Team Providers Care Montessori Preschool Teacher Name Role Phone Radha Jamison DO Primary Care Provider Abdias Murillo PharmD Unavailable Unavail able Nelia Sullivan PharmD Unavailable [phone] Letty Rinaldi Unavailable Dalila Carson RN Unavailable [phone] Ekta Reynolds Unavailable Encounter Details Date Type Department Care Team (Late st Contact Info) Description 06/15/2023 Orders Only [facility] MEDICINE [address] [place], [place] [phone] Radha Jamison DO [address] [place], [place] [phone] Stenosis of right carotid artery Social History [...] Description 01/07/2025 10:00 AM EST Medication Management [facility] MEDICINE [address] [place] [address] Nelia Sullivan, PharmD [address] [place] [address] 03/13/2025 9:30 AM EST Office Visit [facility] OPTOMETRY [address] [place] [address] Tarka, Radha, OD [address] [place] [address] documented as of this encounter Goals Goal [...] documented as of this encounter Care Teams Montessori Preschool Teacher Relationship Specialty Start Date End Date Radha Jamison DO [address] [place] [address] PCP - General Family Medicine 01/26/12 Abdias Murillo, PharmD [address] [place] [address] Pharmacist Internal Medicine 03/21/22 08/30/23 Nelia Sullivan PharmD [address] [place] [address] Pharmacist Internal Medicine 08/31/23 Letty Rinaldi 12/16/24 12/18/24 Dalila Carson, JOANN [address] [place] [address] Registered Nurse Family Medicine 12/31/24 Ekta Reynolds 12/31/24 Laurel Monterroso Sales CoachCustom Tailor 10/27/22 Saige Aguilar 09/26/23 documented as of this encounter
--- OUTSIDE RECORDS SUMMARY | 2025-01-01 06:39 | XMS_ITS | Encounter Summary ---
Author Organization [employer] Address [address] [facility] 7t [place] [address] Care Team Providers Care Temporary Staff Accountant Name Role Phone Radha Jamison DO Primary Care Provider Abdias Murillo PharmD Unavailable Unavail able Nelia Sullivan PharmD Unavailable Letty Rinaldi Unavailable Dalila Carson RN Unavailable [phone] Ekta Reynolds Unavailable Reason for Visit * Reason Comments Med Refill Encounter Details Date Type Department Care Team (Late st Contact Info) Description 08/30/2023 Refill [facility] MEDICINE [address] [place], [place] [phone] Radha Jamison DO 230 [place], [place] [phone] Chronic bilateral low back pain, unspecified whether [...] the past 12 months, has t he [employer] gas, oil or water company threatened to [...] Description 01/07/2025 10:00 AM EST Medication Management [facility] MEDICINE [address] [place] [address] Nelia Sullivan PharmD [address] [place] [address] 03/13/2025 9:30 AM EST Office Visit [facility] OPTOMETRY [address] [place] [address] TarkaRadha, OD [address] [place] [address] documented as of this encounter Goals Goal Patient Goal Type Associated Problems Recent Progress Patient-Stated? Author Record your blood pressure once per day Blood Pressure No Nelia Sullivan, PharmD Blood Pressure < 140/90 Blood Pressure 154/76(2024 2:07 PM EST) No AnaiiaYazminsa, PharmD Smoking cessation General No PuiaFeliceNelia, PharmD [...] documented as of this encounter Care Teams Temporary Staff Accountant Relationship Specialty Start Date End Date Radha Jamison DO [address] [place] [address] PCP - General Family Medicine 01/26/12 Abdias Murillo PharmD [address] [place] [address] Pharmacist Internal Medicine 03/21/22 08/30/23 Nelia Sullivan PharmD [address] [place] [address] Pharmacist Internal Medicine 08/31/23 Letty Rinaldi 12/16/24 12/18/24 Dalila Carson, JOANN [address] [place] [address] Registered Nurse Family Medicine 12/31/24 Ekta Reynolds 12/31/24 Laurel Monterroso Refrigeration Unit RepairerDegreasing Wheel Operator 10/27/22 Saige Aguilar 09/26/23 documented as of this encounter
--- OUTSIDE RECORDS SUMMARY | 2025-01-01 06:39 | XMS_ITS | Encounter Summary ---
Author Organization [employer] Address [address] [facility] 7t [place] [address] Care Team Providers Care Gate Keeper Name Role Phone Lisa Jamisonfer Primary Care Provider Abdias Murillo PharmD Unavailable Unavail able Nelia Sullivan PharmD Unavailable Letty Rinaldi Unavailable Dalila Carson RN Unavailable [phone] Ekta Reynolds Unavailable Reason for Visit * Reason Onset Date Comments Dental Exam 08/24/2023 Encounter Details Date Type Department Care Team (Late st Contact Info) Description 08/24/2023 Telephone [facility] [address] [place] [address] Libby Siddiqui DDS [address] [place], [place] [phone] Dental Exam Social History Tobacco Use Types [...] AM EST Medication Management [facility] [address] [place], [place] [phone] Nelia Sullivan, PharmD [address] [place] [address] 03/13/2025 9:30 AM EST Office Visit [facility] [address] [place], [place] [phone] Radha Taylor, OD [address] [facility] [place] [address] documented as of this encounter Goals Goal Patient Goal Type Associated Problems Recent Progress Patient-Stated? Author Hemoglobin A1c < 7 Result Component 10.1( 5 12:48 PM EDT) No Abdias Murillo, PharmD documented as of this encounter Visit Diagnoses Not on filedocumented in this encounter Additional Health Concerns Assessment Noted Time PHQ-9 Depression Total Score: 4 11/09/19 23 11:27 AM EDT documented as of this encounter Care Teams Gate Keeper Relationship Specialty Start Date End Date Radha Jamison DO [address] [place] [address] PCP - General Family Medicine 01/26/12 Abdias Murillo, PharmD [address] [place] [address] Pharmacist Internal Medicine 03/21/22 08/30/23 Nelia Sullivan, KeithD [address] [place] [address] Pharmacist Internal Medicine 08/31/23 Letty Rinaldi 12/16/24 12/18/24 Dalila Carson, RN [address] [place] [address] Registered Nurse Family Medicine 12/31/24 Ekta Reynolds 12/31/24 Laurel Monterroso Pace AnalystTopper Press Operator Automatic 10/27/22 Saige Aguilar 09/26/23 documented as of this encounter
--- OUTSIDE RECORDS SUMMARY | 2025-01-01 06:39 | XMS_ITS | Clinical Summary ---
Demographics Address [address] [facility] [address] [place] [address] Mobile Phone Home Phone Preferred Language es Marital Status Unknown Baptism Affiliation Unknown Race White Ethnic Group Unknown Author Organization [employer] Address [address] [facility] [address] [place] [address] Care Team Providers Care Oyster Preparer Name Role Phone ShaheenRadha Primary Care Provider Nelia Sullivan PharmD Unavailable Dalila Carson RN Unavailable [phone] Ekta Reynolds Unavailable Allergies Active Allergy Reactions Criticality Noted Date [...] or split. 90 tablet 3 024 Active SUMAtriptan (Imitrex) 25 MG tablet Take 1 tablet (25 mg) by mouth 1 (one) time if needed for migraine for up to 1 dose. May repeat dose once in 2 hours if no relief. Do not exceed 2 doses in 24 hours. 9 tablet 2 024 Active isosorbide mononitrate ER (Imdur) 30 MG 24 hr tablet Take 30 mg by mouth in the morning. 024 Active Alcohol Swabs (Alcohol Prep) 70 % pads USE 1 THREE TIMES DAILY AND NEEDED 100 each 11 12/28/19 25 2:27 PM EST 024 Active Continuous Glucose Control Operator Flow Coat (PayDragonStyle Jenn 3 [place]) device 1 each 3 times daily. Use daily as directed for CGM 1 each 025 Active glucose blood (FreeStyle Precision Julian Test) test strip Use to test blood sugar 3 times daily 100 each 12 12/28/19 2:27 PM EST 025 2025 Active TRUEplus Lancets 33G misc TEST BLOOD SUGAR UP TO THREE TIMES DAILY DIRECTED 100 each 12/28/19 2:27 PM EST 025 Active empagliflozin-metF ORMIN (Synjardy) 12.5-1000 MG Take 1 tablet by mouth with breakfast and with evening meal. 60 tablet 11 12/28/19 2:27 PM EST 025 2025 Active Asmanex HFA 100 MCG/ACT aerosol INHALE 2 PUFFS BY MOUTH TWICE DAILY RINSE MOUTH AFTER USING. 13 g 12/28/19 2:27 PM EST Active naloxone (Narcan) 4 mg/0.1 mL nasal [...] AND EVENING WITH FOOD 360 capsule 3 12/28/19 2:27 PM EST Active acetaminophen (Tylenol 8 Hour) 650 MG ER tablet Take 1 tablet (650 mg) by mouth every 8 (eight) hours. 100 tablet 2 025 2025 Active Ferrous Sulfate (iron) 325 (65 Fe) MG tabletIndications: Anemia, unspecified type TAKE 1 TABLET BY MOUTH TWICE DAILY IN THE MORNING AND AT BEDTIME 180 tablet 3 12/28/19 2:27 PM EST Active docusate sodium (Colace) 100 MG capsuleIndications :Anemia, unspecified type TAKE 1 CAPSULE BY MOUTH TWICE DAILY IN THE MORNING AND IN THE EVENING FOR CONSTIPATION 180 capsule 3 12/28/19 2:27 PM EST 025 Active ezetimibe (Zetia) 10 MG tablet Take 1 tablet (10 mg) by mouth Once per day. 90 tablet 1 Active aspirin (Aspirin Low Dose) 81 MG EC tabletIndications: Hypertension, unspecified type TAKE 1 TABLET BY MOUTH EVERY EVENING 90 tablet Active hydroCHLOROthiazid e (HYDRODiuril) 50 MG tablet Take 1 tablet (50 mg) by mouth Once per day. 90 tablet 1 12/28/19 2:27 PM EST 025 Active fluticasone (Flonase) 50 MCG/ACT nasal spray INSTILL 2 SPRAYS IN EACH NOSTRIL ONCE DAILY 48 g 2 12/28/19 2:27 PM EST Active Diclofenac Sodium 1 % gel APPLY 2 GRAMS TOPICALLY TO AFFECTED AREA(S) 4 TIMES A DAY IN THE MORNING, AT NOON, IN THE EVENING, AND AT BEDTIME NEEDED FOR PAIN 200 g 2 Active insulin pen needle (TransGaming Generic Pen [place]) 32G x 4 mm miscIndications:Ty pe 2 diabetes mellitus with hyperglycemia, with long-term current use of insulin ([facility]) Use as instructed to inject insulin once daily 100 each 3 12/28/19 2:27 PM EST 025 Active Semaglutide,0.25 or 0.5MG/DOS, (Ozempic, 0.25 or 0.5 MG/DOSE,) 2 MG/3ML solution pen-injectorIndica tions:Type 2 diabetes mellitus with hyperglycemia, with long-term current use of insulin ([facility]) Inject 0.5 mg under the skin 1 (one) time per week. 3 mL 12/28/19 2:27 PM EST 025 Active carvedilol (Coreg) 25 MG tabletIndications: Hypertension, unspecified type TAKE 1 TABLET BY MOUTH TWICE DAILY IN THE MORNING AND IN THE EVENING WITH FOOD 180 tablet 1 12/28/19 2:27 PM EST 025 Active hydrOXYzine pamoate (Vistaril) 25 MG capsuleIndications :Mood disorder (CMS/HCC) TAKE 1 CAPSULE BY MOUTH EVERY SIX HOURS 60 capsule 2 12/28/19 2:27 PM EST 025 Active Eliquis 5 MG tabletIndications: Splenic infarct Take 1 tablet (5 mg) by mouth 2 times daily. 60 tablet 3 12/28/19 25 2:27 PM EST Active Ventolin HFA 108 (90 Base) MCG/ACT inhalerIndications :Mild persistent asthma without complication INHALE 2 PUFFS BY MOUTH EVERY 6 HOURS NEEDED FOR WHEEZING OR SHORTNESS OF BREATH 18 g 2 Active Blood Pressure Monitoring (Omron 3 Series BP Monitor) deviceIndications: Essential hypertension USE TO CHECK BLOOD PRESSURE ONCE A DAY 1 each Active lidocaine (Lidoderm) 5 % patch APPLY 1 TO 2 PATCHES TOPICALLY TO SKIN, LEAVE ON FOR 12 HOURS AND OFF FOR 12 HOURS DIRECTED 60 patch 3 Active mirtazapine (Remeron) 45 MG tabletIndications: Mood disorder (CMS/HCC) TAKE 1 TABLET BY MOUTH AT BEDTIME 30 tablet 3 Active gabapentin (Neurontin) 400 MG capsule Take 400 mg by mouth at bedtime. Active hydrALAZINE (Apresoline) 25 MG tablet Take 25 mg by mouth 3 times daily. Active nitroglycerin (Nitrostat) 0.3 MG SL tabletIndications: Coronary artery disease of [place] artery of [place] heart with stable angina pectoris DISSOLVE 1 TABLET UNDER THE TONGUE EVERY 5 MINUTES NEEDED FOR CHEST PAIN. CALL 911 IF NO RELIEF 25 tablet 1 Active amitriptyline (Elavil) 50 MG tabletIndications: Other chronic pain TAKE 1 TABLET BY MOUTH AT BEDTIME 30 tablet 3 Active escitalopram (Lexapro) 20 MG tabletIndications: Depression, unspecified depression type TAKE 1 TABLET BY MOUTH EVERY EVENING 90 tablet 3 Active loratadine (Claritin) 10 MG tablet TAKE 1 TABLET BY MOUTH EVERY DAY 90 tablet 3 12/28/19 25 2:27 PM EST Active pioglitazone (Actos) 15 MG tabletIndications: Type 2 diabetes mellitus with hyperglycemia, with long-term current use of insulin (HCC) TAKE 1 TABLET BY MOUTH EVERY MORNING 90 tablet 3 12/28/19 25 2:27 PM EST 025 Active telmisartan (Micardis) 80 MG tabletIndications: Resistant hypertension,Type 2 diabetes mellitus with hyperglycemia, with long-term current use of insulin (HCC) Take 1 tablet (80 mg) by mouth Once per day. 90 tablet 1 12/28/19 25 2:27 PM EST Active rosuvastatin (Crestor) 40 MG tablet Take 1 tablet (40 mg) by mouth at bedtime. 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 Active Additional Information Patient not taking.Reported on 12/06/2024 Multiple Vitamin (Multivitamin) tabletIndications: Hypertension, unspecified type TAKE 1 TABLET BY MOUTH EVERY MORNING WITH FOOD 90 tablet 12/28/19 25 2:27 PM EST Active triamcinolone (Kenalog) 0.1 % ointment Apply topically if needed in the morning and at bedtime for rash for up to 28 days. 30 g 1 12/31/19 25 2:06 PM EST 2024 Active Continuous Glucose Sensor (FreeStyle Jenn 3 Plus Sensor) misc 1 each Once per day. Apply 1 sensor as directed every 15 days for CGM 2 each 11 025 2024 Discontinued(T herapy completed) rosuvastatin (Crestor) 40 MG tablet Take 1 tablet (40 mg) by mouth at bedtime. 90 tablet 1 025 2024 Discontinued(R eorder (will not trigger notification to Pharmacy)) Multiple Vitamin (Multivitamin) tabletIndications: Hypertension, unspecified type TAKE 1 TABLET BY MOUTH EVERY MORNING WITH FOOD 90 tablet 025 2024 Discontinued telmisartan (Micardis) 80 MG tabletIndications: Type 2 diabetes mellitus with hyperglycemia, with long-term current use of insulin (HCC),Resistant hypertension Take 1 tablet (80 mg) by mouth Once per day. 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 Aragon and is scheduled for surgical intervention -ED precautions reviewed Assessment & Plan (05/11/2023 10:04 AM EDT): [...] B vaccine -pap wnl May 2014 with SPRAY G[employer] STRIPER, advised schedule f/u, contact info given -mammo [...] 12/04/2014 Resistant hypertension 12/04/2014 Assessment & Plan (11/23/2024 8:35 PM EDT): -reports elevated night time BP readings -BP stable during visit today -discussed med compliance -reiterated importance of smoking cessation -recommend follow-up with [facility] pharmacist for medication adjustments -Emergency precautions reviewed Assessment & Plan (12/28/2023 10:46 AM EST): [...] -she will meet w/ HIM RN re: 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 svcs Obstructive sleep apnea 12/04/2014 Tobacco [...] metformin and actos as rx'd -referred to [facility] pharm for CTDM -cont regular [...] info rechecked BP after med was in -given significant abnormalities on EKG that are new when compare w 06/2023 EKG referred pt to ED -pt agreed to have further evaluation and r/o CAD -Pt has PCP apt 08/11/2023 -advised in length pt to make sure to take all her meds consistently at same time of the day and to continue care w video recorder mechanic and PCP ------ Addendum : EMT came and bean picker pt but once she was taken to ambulance pt decide not to go to ED and signed leave AMA 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 05/04/2020 03/18/2022 Encounters Date Type Department Care Team Description 12/31/2024 Patient Outreach [facility] [address] [place] [address] Radha Jamison DO Care Coordination (CHW Chart Review) 12/31/2024 Patient Outreach [address] [address] Radha Jamison DO Care Management (C3CM- chart review) 12/31/2024 Patient Outreach [address] [address] Radha Jamison DO 12/30/[address] [address] Radha Jamison DO Appointment Request 12/27/2024 11:45 AM EST Office Visit [address] [address] Radha Jamison DO 12/27/2024 Travel 12/25/[address] [address] Radha Jamison DO Chart Prep 12/23/[address] [address] Audrey Foreman MD No Show 12/20/[address] [address] Radha Jamison DO Appointment Request 12/19/[address] [address] Radha Jamison DO chart prep 12/18/2024 Patient Outreach [facility] [address] [place] [address] Radha Jamison DO Care Coordination (Communication to pts Assigned CP Coordinator ) 12/17/[address] [address] Radha Jamison DO Order 12/17/2024 Telephone [facility] [address] Radha Jamison DO ER Follow-up 12/17/2024 Telephone [facility] [address] [facility] [address] Radha Jamison DO 12/17/2024 Patient Outreach [facility] [address] [place] [address] Radha Jamison DO Care Coordination (CP Care Coordination Chart Review) 12/16/2024 Patient Outreach [facility] [facility] [place] [address] Radha Jamison DO 12/16/2024 Refill [facility] [address] [place] [address] Radha Jamison DO Hypertension, unspecified type 12/16/2024 Orders Only GENERIC EXTERNAL DATA DEPARTMENT Provider, Generic External Data 2024 Orders Only GENERIC EXTERNAL DATA DEPARTMENT Provider, Generic External Data 12/06/2024 Travel 12/05/2024 Telephone [facility] [place] [address] Radha Jamison DO Care Coordination (Utilization Home Health) 12/05/2024 Telephone [facility] [place] [address] Radha Jamison DO Care Coordination (Home Health Utilization) 12/05/2024 Telephone [facility] [address] [place] [address], [place] [address] Radha Jamison DO 12/03/2024 Orders Only [facility] [address] [place] [address], [place] [address] Radha Jamison DO Type 2 diabetes mellitus with hyperglycemia, with long-term current use of insulin (HCC) (Primary Dx); Essential (primary) hypertension 11/26/2024 Refill [facility] [place] [address] Radha Jamison DO Depression, unspecified depression type; Type 2 diabetes mellitus with hyperglycemia, with long-term current use of insulin (HCC) 11/22/2024 Refill [facility] [address] [place] [address] Radha Jamison DO Other chronic pain 11/17/2024 Refill [facility] [address] [facility] [place] [address] Vickie Penaloza MD Coronary artery disease of pe[place] artery of [place] heart with stable angina pectoris 11/15/2024 2:00 PM EDT Office Visit [facility] [address] [place] [address] Aziza Alas NP Hospital discharge follow-up (Primary Dx); Resistant hypertension; Bilateral carotid artery stenosis 11/15/2024 Travel 11/14/2024 Telephone [facility] [address] [facility] [place] [address] Radha Jamison DO Appointment Request 11/08/2024 Telephone [facility] [address] [place] [address] Patricia Rinaldi, KeithD 11/05/2024 10:00 AM EDT Office Visit [facility] [address] [place] [address] Marita Contreras, OD Type 2 diabetes mellitus with hyperglycemia, with long-term current use of insulin ([facility]) (Primary Dx) 11/05/2024 Telephone [facility] [address] [place] [address] Nelia Sullivan, PharmD chart prep 11/05/2024 Travel 10/27/2024 Refill [facility] [address] [place] [address] Radha Jamison DO Mood disorder (CMS/HCC) 10/25/2024 Refill [facility] [address] [place] [address] Radha Jamison DO 10/24/2024 Refill [facility] [address] [place] [address] Radha Jamison DO Essential hypertension 10/24/2024 Orders Only GENERIC EXTERNAL DATA DEPARTMENT Provider, Generic External Data 10/21/[address] [address] Radha Jamison DO Mild persistent asthma without complication 10/18/2024 Patient Outreach [address] [address] Radha Jamison DO Transition Of Care (Tcm) (HDF scheduled) 10/15/2024 Orders Only GENERIC EXTERNAL DATA DEPARTMENT Provider, Generic External Data 10/07/[address] [address] Radha Jamison DO Nurse Triage 10/03/2024 9:30 AM EDT Office Visit [address] [address] Vickie Penaloza MD Type 2 diabetes mellitus with hyperglycemia, with long-term current use of insulin ([facility]) (Primary Dx); Splenic infarct; Coronary artery disease of pe[place] artery of [place] heart with stable angina pectoris ([facility]); Chronic bilateral low back pain, unspecified whether sciatica present 10/03/2024 Travel 10/02/2024 Telephone [facility] [address] [place] [address] Radha Jamison DO chart prep 10/02/[address] [address] Radha Jamison DO Mood disorder ([facility]) 10/01/2024 Refill [facility] [address] [place], [place] [id number] Radha Jamison DO Hypertension, unspecified type from Last 3 Months Immunizations Immunization Administration [...] Mass Index 27.89 12/27/2024 11:58 AM EST Plan of Treatment Upcoming Encounters Date Type Department Care Team (Late st Contact Info) Description 01/07/2025 10:00 AM EST Medication Management [facility] [address] [place] [address] Nelia Sullivan, PharmD [address] [place] [address] 03/13/2025 9:30 AM EST Office Visit [facility] [address] [place] [address] Radha Taylor, OD [address] [place] [address] Health Maintenance Due Date Last Done Comments CT Colonography 1961 Colonoscopy 1961 Colorectal Cancer Screening 1961 Dental Oral Exam 1961 Dental Prophylaxis 1961 Dental X-Ray: Bitewings 1961 FIT DNA/Cologuard 1961 FIT 1961 FOBT 1961 Sigmoidoscopy 1961 Diabetes: Foot Exam 12/16/1971 Eye Exam 12/16/1971 DTaP/Tdap/Td Vaccines (1 - Tdap) 1980 Pap Smear 1982 Cervical Cancer Screening 12/16/1991 HPV/Cotest 12/16/1991 Lung Cancer Screening 12/16/2011 RSV Patients and Patients Aged 60 years or older (1 - Risk 50-74 years 1-dose series) 12/16/2011 Zoster Vaccines (1 of 2) 12/16/2011 Pneumococcal Vaccine: 50+ Years (2 of 2 - PCV) 11/18/2014 11/18/2013, 05/26/2005 Dental X-Ray: Full Mouth 03/14/2018 03/13/2015 Mammogram 10/07/2023 10/06/2021 Diabetes: Urine Protein Screening 05/14/2024 05/15/2023, 08/08/2022, 10/01/2021, Additional history exists COVID-19 Vaccine ( season) 2024 10/02/2020 Influenza Vaccine (#1) 2024 11/18/2013, 2009 Alcohol/Substance Use Screening 01/31/2025 02/01/2024 Diabetes: Hemoglobin A1C 03/08/2025 025, 09/03/2024, 05/24/2024, Additional history exists Depression Monitoring 05/16/2025 11/15/2024, 025 Lipid Panel 07/24/2025 07/24/2024, 04/0 02/2023, 08/08/2022, [...] per day Blood Pressure No Nelia Sullivan, Camron Blood Pressure < 140/90 Blood Pressure 154/76(2024 [...] type 2 diabetes No Meghana Carr MA Weekly blood pressure [...] Care Plan Weekly blood pressure task No Lorenza Kelly Weekly blood pressure task Care Plan Weekly blood pressure task No Lorenza Kelly Weekly blood pressure task Care Plan Weekly blood pressure task No Lorenza Kelly Patient has diabetic eye disease Care Plan Patient has diabetic eye disease No Lorenza Kelly Patient has diabetic eye disease Care Plan Patient has diabetic eye disease No Lorenza Kelly Patient has diabetic eye disease Care Plan Patient has diabetic eye disease No Lorenza Kelly Patient has chronic kidney disease Care Plan Patient has chronic kidney disease No Lorenza Kelly Patient has chronic kidney disease Care Plan Patient has chronic kidney disease No Lorenza Kelly Patient has chronic kidney disease Care Plan Patient has chronic kidney disease No Lorenza Kelly Weekly blood pressure task Care Plan Weekly blood pressure task No Audelia Adams RN Weekly blood pressure task Care Plan Weekly blood pressure task No Audelia Adams RN Weekly blood pressure task Care Plan Weekly blood pressure task No Audelia Adams RN Patient has diabetic eye disease Care Plan Patient has diabetic eye disease No Audelia Adams RN Patient has diabetic eye disease Care Plan Patient has diabetic eye disease No Audelia Adams RN Patient has diabetic eye disease Care Plan Patient has diabetic eye disease No Audelia Adams RN Patient has chronic kidney disease Care Plan Patient has chronic kidney disease No Audelia Adams RN Patient has chronic kidney disease Care Plan Patient has chronic kidney disease No Audelia Adams RN Patient has chronic kidney disease Care Plan Patient has chronic kidney disease No Audelia Adams RN Weekly blood pressure task Care Plan Weekly blood pressure task No Dalila Carson RN Weekly blood pressure task Care Plan Weekly blood pressure task No Dalila Carson RN Weekly blood pressure task Care Plan Weekly blood pressure task No Dalila Carson RN Patient has diabetic eye disease Care Plan Patient has diabetic eye disease No Dalila Carson RN Patient has diabetic eye disease Care Plan Patient has diabetic eye disease No Dalila Carson RN Patient has diabetic eye disease Care Plan Patient has diabetic eye disease No Dalila Carson RN Patient has chronic kidney disease Care Plan Patient has chronic kidney disease No Dalila Carson RN Patient has chronic kidney disease Care Plan Patient has chronic kidney disease No Dalila Carson RN Patient has chronic kidney disease Care Plan Patient has chronic kidney disease No Dalila Carson RN Weekly blood pressure task Care Plan Weekly blood pressure task No Ekta Reynolds Weekly blood pressure task Care Plan Weekly blood pressure task No Ekta Reynolds Weekly blood pressure task Care Plan Weekly blood pressure task No Ekta Reynolds Patient has diabetic eye disease Care Plan Patient has diabetic eye disease No Ekta Reynolds Patient has diabetic eye disease Care Plan Patient has diabetic eye disease No Ekta Reynolds Patient has diabetic eye disease Care Plan Patient has diabetic eye disease No Ekta Reynolds Patient has chronic kidney disease Care Plan Patient has chronic kidney disease No Ekta Reynolds Patient has chronic kidney disease Care Plan Patient has chronic kidney disease No Ekta Reynolds Patient has chronic kidney disease Care Plan Patient has chronic kidney disease No Ekta Reynolds Procedures Procedure Name Priority Date/Time Associated Diagnosis Comments COVID-19 ID NOW ([facility]) Routine 12/16/2024 2:08 AM EST COMPREHENSIVE METABOLIC PANEL Routine 2024 11:12 PM EST CBC WITH AUTO DIFFERENTIAL Routine 2024 11:12 PM EST POCT GLYCATED HEMOGLOBIN, TOTAL Routine 12/06/2024 12:48 PM EDT Type 2 diabetes mellitus with hyperglycemia, with long-term current use of insulin (HCC) LIPASE Routine 10/24/2024 12:49 AM EDT BASIC [...] Recently Relevant to Health Maintenance Results * COVID-19 ID NOW ([facility]) (12/16/2024 2:08 AM EST) IDCHIARAW SERIAL# [id number] [facility] COVID-19 TEST Negative Negative [facility] COVID-19 NOTE See Note [facility] Comment: Results are for the identification of SARS-CoV2 RNA. TheSARS-CoV2 RNA is generally detectable in respiratory samplesduring the acute phase of infection. Positive results areindicative of the presence of SARS-CoV-2 RNA; clinicalcorrelation with patient history and other diagnosticinformation is necessary to determine patient infectionstatus. Positive results do not rule out bacterial infectionor co- infection with other viruses.Testing facilities within the [facility] and itsterritories are required to report all positive results tothe appropriate public health authorities.Negative results should be treated as presumptive and, ifinconsistent with clinical signs and symptoms or necessaryfor patient management, should be tested with differentauthorized or cleared molecular tests. Negative results donot preclude SARS-CoV2 RNA infection and should not be usedas the sole basis for patient management decisions. Negativeresults should be considered in the context of a patient'srecent exposures, history and the presence of clinical signsand symptoms consistent with COVID-19.This test has been authorized by the FDA under an EmergencyUse Authorization (EUA) for use by authorized laboratories.Testing performed on the [place] ID NOW utilizing NAAT. 12/16/2024 2:08 AM EST 12/16/2024 2:12 AM EST us Generic External Data Provider LAB MOLECULAR [facility] ORDERABLES Final Result [facility] [address] [place] [phone] * (ABNORMAL) CBC auto differential (2024 11:12 PM EST) Only the most recent of2 resultswithin the time period is included. White Blood Count 8.1 4.8 - 10.8 X10*3/uL [facility] Red Blood Count 4.03(L) 4.20 - 5.50 X10*6/uL [facility] Hemoglobin 11.5(L) 12.0 - 16.0 g/dl [facility] Hematocrit 35.7(L) 37.0 - 47.0 % [facility] Mean Corpuscular Volume 88.6 80.0 - 98.0 fL [facility] Mean Corpuscular Hemoglobin 28.5 27.0 - 33.0 pg [facility] Mean Corpuscular HGB Conc 32.2 31.0 - 35.0 g/dl [facility] Red Cell Distribution Width 13.8 11.0 - 16.0 % [facility] Platelet Count 318 160 - 400 X10*3/uL [facility] [facility] Mean Platelet Volume 9.0(L) 9.4 - 12.3 fL [facility] Neutrophils Percent Auto 61.1 45 - 73 % [facility] Imm Gran Pct Auto 0.2 0.0 - 0.4 % [facility] Lymphocytes Percent Auto 27.6 20 - 40 % [facility] Monocytes Percent Auto 6.9 2 - 11 % [facility] Eosinophils Percent Auto 3.6 0 - 4 % [facility] Basophils Percent Auto 0.6 0 - 2 % [facility] NRBC Pct Auto 0.0 0.0 - 0.2 /100WBC [facility] Neutrophils Absolute Auto 5.0 2.0 - 8.3 x10*3/uL [facility] Imm Gran Abs Auto 0.02 0.00 - 0.03 X10*3/uL [facility] Lymphocytes Absolute Auto 2.2 1.2 - 4.9 X10*3/uL [facility] Monocytes Absolute Auto 0.6 0.1 - 1.2 X10*3/uL [facility] Eosinophils Absolute Auto 0.3 0.0 - 0.4 X10*3/uL [facility] Basophils Absolute Auto 0.1 0.0 - 0.2 X10*3/uL [facility] NRBC Abs Auto 0.000 0.0 - 0.012 X10*3/uL [facility] 2024 11:1 2 PM EST 2024 11:16 PM EST us Generic External Data Provider LAB BLOOD ORDERAB LES Final Result [facility] [address] [place] [address] [phone] * (ABNORMAL) Comprehensive Metabolic Panel (2024 11:12 PM EST) Only the most recent of2 resultswithin the time period is included. Sodium 141 135 - 145 mmol/L [facility] Potassium 3.7 3.3 - 5.1 mmol/L [facility] Chloride 107 96 - 108 mmol/L [facility] Carbon Dioxide 27 22 - 29 mmol/L [facility] Anion Gap 11(L) 12 - 20 [facility] Urea Nitrogen (BUN) 16 9 - 16 mg/dL [facility] Creatinine, Serum 1.05 0.5 - 1.4 mg/dL [facility] Creatinine Clr Calc Pharmacy 48.4 [facility] Comment:Provided height and weight: 154.94 cm,68.039 kg.eGFR (calculated from the MDRD study equation) and eCrCl(calculated from the Cockcroft-Gault equation) are based ondifferent parameters and may not yield comparable results.If eCrCl result is absurd, please check patient'sheight/weight. Estimated Glomerular Filt Rate 53 [facility] Comment:Chronic Kidney Disea se: Estimated GFR < 60 mL/min/1.61h0Wrwutm Kidney Disease: Estimated GFR < 15 mL/min/1.73m2 Glucose 174(H) 60 - 115 mg/dL [facility] Calcium 8.4 8.4 - 10.2 mg/dL [facility] Bilirubin, Total 0.2 0.0 - 1.0 mg/dL [facility] Aspartate Amino Transferase 16 5 - 31 U/L [facility] Alanine Aminotransferase <6 0 - 31 U/L [facility] Total Protein 5.7(L) 6.5 - 8.0 g/dL [facility] Albumin Level 3.0(L) 3.5 - 5.0 g/dL [facility] Alkaline Phosphatase 93 39 - 117 U/L [facility] 2024 11:1 2 PM EST 2024 11:16 PM EST us Generic External Data Provider LAB BLOOD ORDERAB LES Final Result Performing Organization Address City/[facility]/ZIP Co de Phone Number [facility] [address] [place] [phone] * (ABNORMAL) POCT Hgb A1c (12/06/2024 12:48 PM EDT) Hemoglobin A1C 10.1(A) 4.0 - 5.7 % Blood 12/06/2024 12:4 8 PM EDT us Radha Jamison DO POINT OF CARE TEST ENTER/BHARGAVI T ORDERABLES Final Result * Lipase (10/24/2024 12:49 AM EDT) Lipase 13 8 - 78 U/L [facility] 10/24/2024 12:4 9 AM EDT 10/24/2024 12:51 AM EDT us Generic External Data Provider LAB BLOOD ORDERAB LES Final Result Performing Organization Address City/[facility]/ZIP Co de Phone Number [facility] [address] [place] [phone] * (ABNORMAL) Hepatic Function Panel (10/24/2024 12:49 AM EDT) Bilirubin, Total 0.2 0.0 - 1.0 mg/dL [facility] Bilirubin, Direct <0.2 0.0 - 0.5 mg/dL [facility] Aspartate Amino Transferase 9 5 - 31 U/L [facility] Alanine Aminotransferase 6 0 - 31 U/L [facility] Total Protein 5.6(L) 6.5 - 8.0 g/dL [facility] Albumin Level 3.0(L) 3.5 - 5.0 g/dL [facility] Alkaline Phosphatase 94 39 - 117 U/L [facility] 10/24/2024 12:4 9 AM EDT 10/24/2024 12:51 AM EDT us Generic External Data Provider LAB BLOOD ORDERAB LES Final Result [facility] [address] [place] [address] [phone] * (ABNORMAL) Basic Metabolic Panel (10/24/2024 12:49 AM EDT) Sodium 141 135 - 145 mmol/L [facility] Potassium 4.3 3.3 - 5.1 mmol/L [facility] Chloride 108 96 - 108 mmol/L [facility] Carbon Dioxide 25 22 - 29 mmol/L [facility] Anion Gap 12 12 - 20 [facility] Urea Nitrogen (BUN) 25(H) 9 - 16 mg/dL [facility] Creatinine, Serum 1.12 0.5 - 1.4 mg/dL [facility] Creatinine Clr Calc Pharmacy 47.8 [facility] Comment:Provided height and weight: 160.02 cm,66.9 kg.eGFR (calculated from the MDRD study equation) and eCrCl(calculated from the Cockcroft-Gault equation) are based ondifferent parameters and may not yield comparable results.If eCrCl result is absurd, please check patient'sheight/weight. Estimated Glomerular Filt Rate 49 [facility] Comment:Chronic Kidney Disea se: Estimated GFR < 60 mL/min/1.40j3Wwubkz Kidney Disease: Estimated GFR < 15 mL/min/1.73m2 Glucose 238(H) 60 - 115 mg/dL [facility] Calcium 8.2(L) 8.4 - 10.2 mg/dL [facility] 10/24/2024 12:4 9 AM EDT 10/24/2024 12:51 AM EDT us Generic External Data Provider LAB BLOOD ORDERAB LES Final Result Performing Organization Address City/State/[facility] Co de Phone Number [facility] [address] [place] [phone] * [facility] US Carotid Artery Duplex Bilateral (10/15/2024 1:19 PM EDT) 10/15/2024 1:19 PM EDT Narrative [facility] - 10/15/2024 2:54 PM EDT [address] [address] Ultrasound Report Signed Patient: Rocío Hallman MR#: [id number] 087 : 1960 Acct:[id number] Age/Sex: 63 / F ADM Date: 10/15/24 Loc: [facility] [place]: Alan Lopez MD Ordering Physician: Caleb Aragon MD Date of Service: 10/15/24 Procedure(s): US carotid duplex BI Accession Number(s): [id number] cc: [facility]; Caleb Aragon MD Reason for Exam: [...] 10/15/24 1451 DD/ 1319 TD/TT: 10/15/24 1342 Solar Fabrication Technician: Procedure Note Donotuseinterpreter, Image - 10/15/[address] [address] Ultrasound Report Signed Patient: Rocío HallmanMR#: [id number] : 2Acct:[id number] Age/Sex: 63 / FADM Date: 10/15/24 Loc: [facility] [place]: Alan Lopez MD Ordering Physician: Caleb Aragon MD Date of Service: 10/15/24 Procedure(s): US carotid duplex BI Accession Number(s): [id number] cc: [facility]; Caleb Aragon MD Reason for Exam: [...] 10/15/24 1451 DD/ 1319 TD/TT: 10/15/24 1342 Solar Fabrication Technician: us [facility] External Provider CV VASC ULAR PROCEDURES Final Result Performing Organization Address City/State/[facility] Co de Phone Number [facility] [address] [place] [address] * CTA Head Neck w/ and w/o Contrast (10/15/2024 6:06 AM EDT) Anatomical Region Laterality Modality Head, Neck Computed Tomogra phy 10/15/2024 6:06 AM EDT Narrative 10/15/2024 6:08 AM EDT [place] [address] [address] Scan Report Signed with Addenda Patient: Rocío Hallman MR#: [id number] 087 : 1960 Acct:[id number] Age/Sex: 63 / F ADM Date: 10/15/24 Loc: .ED Attending Dr: Ordering Physician: Cornelia Clark DO Date of Service: 10/15/24 Procedure(s): CT angio head neck Accession Number(s): [id number] cc: Cornelia Clark DO; [facility] Report Number: [id number]: Total DLP = 1340.00 mGy-cm ADDENDUM This [...] in OV> 10/15/24606 DD/ 5 TD/TT: 10/15/24605 Solar Fabrication Technician: Procedure Note Donotuseinterpreter, Image - 10/15/[address] [place] [address] [address] Scan Report Signed with Addenda Patient: Rocío HallmanMR#: [id number] 087 : 1960cct:[id number] Age/Sex: 63 / FADM Date: 10/15/24 Loc: .ED Attending Dr: Ordering Physician: Cornelia Clark DO Date of Service: 10/15/24 Procedure(s): CT angio head neck Accession Number(s): [id number] cc: Cornelia Clark DO; [facility] Report Number: [id number]: Total DLP = 1340.00 mGy-cm ADDENDUM This [...] 10/15/24 0607 DD/ 06 TD/TT: 10/15/24 06 Solar Fabrication Technician: [facility] External Provider IMG CT PROCEDURES Edited Result - Final * XR Chest 1 View (10/15/2024 4:29 AM EDT) Anatomical Region Laterality Modality Chest Radiographic Samantha ging 10/15/2024 4:29 AM EDT Narrative 10/15/2024 4:30 AM EDT [address] [address] XRay Report Signed Patient: Rocío Hallman MR#: [id number] 087 : 1960 Acct:[id number] Age/Sex: 63 / F ADM Date: 10/15/24 Loc: .ED Attending Dr: Ordering Physician: Cornleia Clark DO Date of Service: 10/15/24 Procedure(s): XR chest 1V Accession Number(s): [id number] cc: Cornelia Clark DO; [facility] CLINICAL HISTORY: chest pain 1 view [...] OV> 10/15/24 0430 DD/ 8 TD/TT: 10/15/24428 Solar Fabrication Technician: Procedure Note Donotuseinterpreter, Image - 10/15/[address] [address] XRay Report Signed Patient: Rocío HallmanMR#: [id number] : 2Acct:[id number] Age/Sex: 63 / FADM Date: 10/15/24 Loc: HO.ED Attending Dr: Ordering Physician: Cornelia Clark DO Date of Service: 10/15/24 Procedure(s): XR chest 1V Accession Number(s): [id number] cc: Cornelia Clark DO; [facility] CLINICAL HISTORY: chest pain 1 view [...] in OV> 10/15/24429 DD/ 8 TD/TT: 10/15/24428 Solar Fabrication Technician: [facility] External Provider IMG XR PROCEDURES Edited Result - Final * High Sensitivity Troponin I (10/15/2024 2:37 AM EDT) [facility] TROPONIN I HIGH SENSITIVITY 7.6 <3.5 - 17.0 ng/L [facility] Comment:The [place] high sens itivity Troponin-I results should beused in conjunction with other diagnostic information suchas ECG, clinical observations and information, and patientsymptoms to aid in the diagnosis of NM. 10/15/2024 2:37 AM EDT 10/15/2024 2:41 AM EDT Generic External Data Provider LAB BLOOD ORDERAB LES Final Result [facility] [address] [place] [phone] * Magnesium (10/15/2024 2:37 AM EDT) [facility] Magnesium 2.0 1.6 - 2.6 mg/dL [facility] 10/15/2024 2:37 AM EDT 10/15/2024 2:41 AM EDT us Generic External Data Provider LAB BLOOD ORDERAB LES Final Result [facility] [address] [place] [address] [phone] * (ABNORMAL) POCT Glucose (10/03/2024 9:39 AM EDT) Glucose Blood, POC 258(A) 60 - 200 mg/dL QC Media Lot # [id number] Lot# Expiration Date [id number] Blood Capillary blood specimen / Unknown 10/03/2024 9:39 AM EDT us Vickie Syed MD POINT OF CARE TEST EN TER/EDIT ORDERABLES Final Result * (ABNORMAL) Lipid Panel, Standard (07/24/2024 10:41 AM EDT) Triglycerides 157(H) <150 mg/dL [facility] Comment:Desirable Triglyceri de: less than 150 mg/dLBorderline High Triglyceride 150-199 mg/dLHigh Triglyceride: 200-499 mg/dLVery High Triglyceride: greater than or equal to 5OO mg/dL Cholesterol 234(H) <200 mg/dL [facility] Comment:Desirable Cholestero l: less than 200 mg/dLBorderline High Cholesterol: 200-239 mg/dLHigh Cholesterol: greater than 239 mg/dL LDL Cholesterol Calculated 159(H) <100 mg/dL [facility] Comment:Desirable LDL: less than 100 mg/dLNear Optimal/Above Optimal LDL: 110- 129 mg/dLBorderline High LDL: 130-159 mg/dLHigh LDL: 160-189 mg/dLVery High LDL: greater than or equal to 190 mg/dL HDL Cholesterol 44 >40 mg/dL [facility] Comment:Desirable HDL: great er than 40 mg/dL Note: This HDL assay may give artificially low results in patients with liver disease. 07/24/2024 10:4 1 AM EDT 07/24/2024 10:41 AM EDT Radha Jamison LAB BLOOD ORDERABLES Final R esult Performing Organization Address [facility] de Phone Number [facility] [address] [place] [phone] * (ABNORMAL) Albumin, Random Urine W/Creatinine (05/15/2023 8:20 AM EDT) Creatinine, Urine 105.69 mg/dL [facility] Microalbumin Urine 1,418.0 mg/L [facility] Microalbum Creatinine Ratio Ur 1,341.6(H ) <30 ug/mg cr [facility] Comment:Albumin/Creatinine R atio Reference Ranges: Normal: < 30 ug/mg creatinine Microalbuminuria: 30 - 300 ug/mg creatinineClinical Albuminuria: > 300 ug/mg creatinine Urine (Urine, Random) 05/15/2023 8:20 AM EDT 05/15/2023 8:31 AM EDT Radha Jamison LAB URINE ORDERABLES Final R esult Performing Organization Address [facility] Co de Phone Number [facility] [address] [place] [phone] * Hepatitis C Antibody with Reflex to HCV RNA,PCR w/Reflex to Genotype, LiPA (08/08/2022 10:44 AM EDT) Hepatitis C Antibody NON-REACT ROMERO NON-REACT ROMERO [facility] Comment: HCV antibody was non-reactive. There is no laboratory evidence of HCV infection. In most cases, no further action is required. However, if recent HCV exposure is suspected, a test for HCV RNA (test code 09542) is suggested. For additional information, please refer to http://education.AriadNEXT.Deskarma/faq/BUR302 (This link is being provided for informational/ educational purposes only.) 08/08/2022 10:4 4 AM EDT 08/08/2022 10:45 AM EDT Narrative [facility] - 08/09/2022 7:27 PM EDT FASTING:YES COLLECTION KIT GIVEN TO PATIENT. PATIENT ADVISED TO RETURN. FASTING: YES Radha Jamison DO LAB BLOOD ORDERABLES Final R esult [facility] [address] [facility], [facility], [place] [address] [facility] [place] [facility] [address] [place] [address] * HIV-1/2 Antigen and Antibodies, Fourth Generation, with Reflexes (08/08/2022 10:44 AM EDT) HIV Antigen/Antibody, 4th Generation NON-REAC TIVE NON-REAC TIVE [facility] [place] [facility] Comment: HIV-1 antigen and HIV-1/HIV-2 antibodies [...] purpose. For additional information please refer to http://education.official.fm.Deskarma/faq/AVZ379 (This link is being provided for informational/ [...] BLOOD ORDERABLES Final R esult [facility] [address] [facility], [facility], [place] [address] [facility] [address] [place] [address] * Mammography Report 1 (10/06/2021 1:35 PM [...] or Most Recently Relevant to Health Maintenance Additional Health Concerns Active Problems Noted Date [...] kidney disease 12/25/2024 Weekly blood pressure task 12/30/2024 Weekly blood pressure task 12/30/2024 Weekly blood pressure task 12/30/2024 Patient has diabetic eye disease 12/30/2024 Patient has diabetic eye disease 12/30/2024 Patient has diabetic eye disease 12/30/2024 Patient has chronic kidney disease 12/30/2024 Patient has chronic kidney disease 12/30/2024 Patient has chronic kidney disease 12/30/2024 Weekly blood pressure task 12/31/2024 Weekly blood pressure task 12/31/2024 Weekly blood pressure task 12/31/2024 Patient has diabetic eye disease 12/31/2024 Patient has diabetic eye disease 12/31/2024 Patient has diabetic eye disease 12/31/2024 Patient has chronic kidney disease 12/31/2024 Patient has chronic kidney disease 12/31/2024 Patient has chronic kidney disease 12/31/2024 Weekly blood pressure task 12/31/2024 Weekly blood pressure task 12/31/2024 Weekly blood pressure task 12/31/2024 Patient has diabetic eye disease 12/31/2024 Patient has diabetic eye disease 12/31/2024 Patient has diabetic eye disease 12/31/2024 Patient has chronic kidney disease 12/31/2024 Patient has chronic kidney disease 12/31/2024 Patient has chronic kidney disease 12/31/2024 Weekly blood pressure task 12/31/2024 Weekly blood pressure task 12/31/2024 Weekly blood pressure task 12/31/2024 Patient has diabetic eye disease 12/31/2024 Patient has diabetic eye disease 12/31/2024 Patient has diabetic eye disease 12/31/2024 Patient has chronic kidney disease 12/31/2024 Patient has chronic kidney disease 12/31/2024 Patient has chronic kidney disease 12/31/2024 Insurance * Guarantor: Rocío Hallman Account Type Relation to Patient Date of Phone Billing Address Personal/Family Self 1960 [address] [facility] [address] [place] [address] [facility] * Guarantor: Rocío Hallman Account Type Relation to Patient Date of Phone Billing Address Dental Self [address] [place] [address] * Guarantor: Rocío Hallman Account Type Relation to Patient Date of Phone Billing Address Personal/Family Self [address] [place] [address] * Guarantor: Rocío Hallman Account Type Relation to Patient Date of Phone Billing Address Personal/Family Self [address] [place] [address] * Guarantor: Rocío Hallman Account Type Relation to Patient Date of Phone Billing Address Personal/Family Self [address] [place] [address] Care Teams Oyster Preparer Relationship Specialty Start Date End Date Radha Jamison DO [address] [place] [address] PCP - General Family Medicine 01/26/12 Nelia Sullivan PharmD [address] [place] [address] Pharmacist Internal Medicine 08/31/23 Dalila Carson, JOANN [address] [place] [phone] Registered Nurse Family Medicine 12/31/24 Ekta Reynolds 12/31/24 Laurel Monterroso Social Worker SchoolEquipment Inspector 10/27/22 Saige Aguilar 09/26/23
--- OUTSIDE RECORDS SUMMARY | 2025-01-01 06:40 | XMS_ITS | Encounter Summary ---
Author Organization [employer] Address [address] [facility] 7t [place] [address] Care Team Providers Care Maori Liaison Adviser Name Role Phone Radha Jamison DO Primary Care Provider Abdias Murillo PharmD Unavailable Unavail able Nelia Sullivan PharmD Unavailable [phone] Letty Rinaldi Unavailable Dalila Carson RN Unavailable [phone] Ekta Reynolds Unavailable Encounter Details Date Type Department Care Team (Late st Contact Info) Description 10/10/2022 Telephone [facility] MEDICINE [address] [place], [place] [phone] Radha Jamison DO [address] [place], [place] [phone] Social History Tobacco Use Types Packs/Day Years [...] Description 01/07/2025 10:00 AM EST Medication Management [facility] MEDICINE [address] [place] [address] Nelia Sullivan PharmD [address] [place] [address] 03/13/2025 9:30 AM EST Office Visit [facility] OPTOMETRY [address] [place], [place] [phone] Radha Taylor, OD [address] [place] [address] documented as of this encounter Goals Goal [...] documented as of this encounter Care Teams Maori Liaison Adviser Relationship Specialty Start Date End Date Radha Jamison DO [address] [place] [phone] PCP - General Family Medicine 01/26/12 Abdias Murillo PharmD [address] [place] [address] Pharmacist Internal Medicine 03/21/22 08/30/23 Nelia Sullivan PharmD [address] [place] [address] Pharmacist Internal Medicine 08/31/23 Letty Rinaldi 12/16/24 12/18/24 Dalila Carson, JOANN [address] [place] [phone] Registered Nurse Family Medicine 12/31/24 Ekta Reynolds 12/31/24 Laurel Monterroso Group Dynamics InstructorTransportation Engineer 10/27/22 Saige Aguilar 09/26/23 documented as of this encounter
--- OUTSIDE RECORDS SUMMARY | 2025-01-01 06:40 | XMS_ITS | Encounter Summary ---
Author Organization [employer] Address [address] [facility] [address] [place] [address] Care Team Providers Care Athletic Trainer Name Role Phone Radha Jamison DO Primary Care Provider Abdias Murillo PharmD Unavailable Unavail able Nelia Sullivan PharmD Unavailable Letty Rinaldi Unavailable Dalila Carson RN Unavailable [phone] Ekta Reynolds Unavailable Reason for Visit * Reason Comments Med Refill Encounter Details Date Type Department Care Team (Late st Contact Info) Description 08/01/2023 Refill [facility] MEDICINE [address] [place], [place] [phone] Radha Jamison DO [address] [place], [place] [phone] Chronic bilateral low back pain, unspecified whether [...] Description 01/07/2025 10:00 AM EST Medication Management [facility] MEDICINE [address] [place] [address] Nelia Sullivan PharmD [address] [place] [address] 03/13/2025 9:30 AM EST Office Visit [facility] OPTOMETRY [address] [place] [address] Radha Taylor, OD [address] [place] [address] documented as of this encounter Goals Goal [...] documented as of this encounter Care Teams Athletic Trainer Relationship Specialty Start Date End Date Radha Jamison DO [address] [place] [address] PCP - General Family Medicine 01/26/12 Abdias Murillo, PharmD [address] [place] [address] Pharmacist Internal Medicine 03/21/22 08/30/23 Nelia Sullivan PharmD [address] [place] [address] Pharmacist Internal Medicine 08/31/23 Letty Rinaldi 12/16/24 12/18/24 Dalila Carson, JOANN [address] [place] [address] Registered Nurse Family Medicine 12/31/24 Ekta Reynolds 12/31/24 Laurel Monterroso Counter Control OperatorCompensation And Hris Analyst 10/27/22 Saige Aguilar 09/26/23 documented as of this encounter
--- OUTSIDE RECORDS SUMMARY | 2025-01-01 06:40 | XMS_ITS | Encounter Summary ---
Author Organization [employer] Address [address] [facility] 7t [place] [address] Care Team Providers Care Youth Probation Officer Name Role Phone Radha Jamison DO Primary Care Provider Abdias Murillo PharmD Unavailable Unavail able Nelia Sullivan PharmD Unavailable [phone] Letty Rinaldi Unavailable Dalila Carson RN Unavailable [phone] Ekta Reynolds Unavailable Reason for Visit * Reason Onset Date Comments Durable Medical Equipment 09/08/2022 Encounter Details Date Type Department Care Team (Late st Contact Info) Description 09/08/2022 Telephone [facility] MEDICINE [address] [place], [place] [phone] Radha Jamison DO [address] [place], [place] [phone] Durable Medical Equipment Social History Tobacco Use [...] is not working. Please contact pt at [phone] documented in this encounter Plan of Treatment Upcoming Encounters Date Type Department Care Team (Late st Contact Info) Description 01/07/2025 10:00 AM EST Medication Management [facility] MEDICINE [address] [place] [address] Nelia Sullivan PharmD [address] [place] [address] 03/13/2025 9:30 AM EST Office Visit [facility] OPTOMETRY [address] [place] [address] TarRadha bang, OD [address] [place] [address] documented as of this encounter Goals Goal [...] documented as of this encounter Care Teams Youth Probation Officer Relationship Specialty Start Date End Date Radha Jamison DO [address] [place] [address] PCP - General Family Medicine 01/26/12 Abdias Murillo, PharmD [address] [place] [address] Pharmacist Internal Medicine 03/21/22 08/30/23 Nelia Sullivan, Camron [address] [place] [address] Pharmacist Internal Medicine 08/31/23 Letty Rinaldi 12/16/24 12/18/24 Dalila Carson, JOANN [address] [place] [address] Registered Nurse Family Medicine 12/31/24 Ekta Reynolds 12/31/24 Laurel Monterroso Database Security ExpertClerk Stenographer 10/27/22 Saige Aguilar 09/26/23 documented as of this encounter
--- OUTSIDE RECORDS SUMMARY | 2025-01-01 06:42 | XMS_ITS | Encounter Summary ---
Author Organization [employer] Address 75 [facility] 7t [place] [address] Care Team Providers Care Institutional Commodity Analyst Name Role Phone Radha Jamison DO Primary Care Provider Abdias Murillo PharmD Unavailable Unavail able Nelia Sullivan PharmD Unavailable [phone] Letty Rinaldi Unavailable Dalila Carson RN Unavailable [phone] Ekta Reynolds Unavailable Reason for Visit * Reason Onset Date Comments Med Refill 10/18/2022 Encounter Details Date Type Department Care Team (Late st Contact Info) Description 10/18/2022 Telephone [facility] MEDICINE [address] [place], [place] [phone] Radha Jamison DO 230 [place], [place] [phone] Med Refill Social History Tobacco Use Types [...] PCP needed re:controlled medication. Pt's hx with [facility] appts is as follows: 05/05: Pt short [...] team nurses. Any questions, contact pt at [phone] (Macedonian) * Telephone Encounter - Acacia Chakraborty RN [...] Description 01/07/2025 10:00 AM EST Medication Management [facility] MEDICINE [address] [place] [address] Nelia Sullivan PharmD 230 [place] [address] 03/13/2025 9:30 AM EST Office Visit [facility] OPTOMETRY [address] [place], [place] [phone] Radha Taylor, OD 267 [place] [address] documented as of this encounter Goals Goal [...] documented as of this encounter Care Teams Institutional Commodity Analyst Relationship Specialty Start Date End Date Radha Jamison DO [address] [place] [address] PCP - General Family Medicine 01/26/12 Abdias Murillo PharmD [address] [place] [address] Pharmacist Internal Medicine 03/21/22 08/30/23 Nelia Sullivan PharmD [address] [place] [address] Pharmacist Internal Medicine 08/31/23 Letty Rinaldi 12/16/24 12/18/24 Dalila Carson, RN [address] [place] [address] Registered Nurse Family Medicine 12/31/24 Ekta Reynolds 12/31/24 Laurel Monterroso Property Field AdjusterMolded Grid And Parts Inspector 10/27/22 Saige Aguilar 09/26/23 documented as of this encounter
--- OUTSIDE RECORDS SUMMARY | 2025-01-01 06:42 | XMS_ITS | Encounter Summary ---
Author Organization [employer] Address 75 [facility] 7t [place] [address] Care Team Providers Care Food And Beverage Lead Name Role Phone Radha Jamison DO Primary Care Provider Abdias Murillo PharmD Unavailable Unavail able Nelia Sullivan PharmD Unavailable Letty Rinaldi Unavailable Dalila Carson RN Unavailable [phone] Ekta Reynolds Unavailable Reason for Visit * Reason Onset Date Comments Med Refill 10/24/2022 Encounter Details Date Type Department Care Team (Late st Contact Info) Description 10/24/2022 Telephone [facility] MEDICINE 230 [place], [place] [phone] Radha Jamison DO 230 [place], [place] [phone] Med Refill Social History Tobacco Use Types [...] 10:00 AM EST Medication Management [facility] MEDICINE [address] [place] [address] Nelia Sullivan PharmD [address] [place] [address] 03/13/2025 9:30 AM EST Office Visit [facility] OPTOMETRY [address] [place] [address] Radha Taylor, OD [address] [place] [address] documented as of this encounter Goals Goal [...] as of this encounter Care Teams Food And Beverage Lead Relationship Specialty Start Date End Date Radha Jamison DO 230 [place] [address] PCP - General Family Medicine 01/26/12 Abdias Murillo, PharmD 230 [place] [address] Pharmacist Internal Medicine 03/21/22 08/30/23 Nelia Sullivan, KeithD 230 [place] [address] Pharmacist Internal Medicine 08/31/23 Letty Rinaldi 12/16/24 12/18/24 Dalila Carson, RN [address] [place] [address] Registered Nurse Family Medicine 12/31/24 Ekta Reynolds 12/31/24 Laurel Monterroso Stenographer SecretaryLine Haul Truck Driver 10/27/22 Saige Aguilar 09/26/23 documented as of this encounter
--- OUTSIDE RECORDS SUMMARY | 2025-01-01 06:42 | XMS_ITS | Encounter Summary ---
Author Organization [employer] Address 75 [facility] 7t [place] [address] Care Team Providers Care Commercial Credit Analyst Name Role Phone Radha Jamison DO Primary Care Provider Abdias Murillo PharmD Unavailable Unavail able Nelia Sullivan PharmD Unavailable [phone] Letty Rinaldi Unavailable Dalila Carson RN Unavailable [phone] Ekta Reynolds Unavailable Reason for Visit * Reason Comments Med Refill Encounter Details Date Type Department Care Team (Late st Contact Info) Description 10/25/2022 Refill [facility] MEDICINE [address] [place], [place] [phone] Radha Jamison DO 230 [place] [address] Chronic bilateral low back pain, unspecified whether [...] Department Care Team (Late Contact Info) Description 01/07/2025 10:00 AM EST Medication Management [facility] MEDICINE [address] [place] [address] Nelia Sullivan PharmD [address] [place] [address] 03/13/2025 9:30 AM EST Office Visit [facility] OPTOMETRY [address] [place] [address] Radha Taylor, OD [address] [place] [address] documented as of this encounter Goals Goal [...] documented as of this encounter Care Teams Commercial Credit Analyst Relationship Specialty Start Date End Date Radha Jamison DO [address] [place] [address] PCP - General Family Medicine 01/26/12 Abdias Murillo, KeithD [address] [place] [address] Pharmacist Internal Medicine 03/21/22 08/30/23 Nelia Sullivan PharmD [address] [place] [address] Pharmacist Internal Medicine 08/31/23 Letty Rinaldi 12/16/24 12/18/24 Dalila Carson, JOANN [address] [place] [address] Registered Nurse Family Medicine 12/31/24 Ekta Reynolds 12/31/24 Laurel Monterroso Jig Boring Machine Operator For [employer] Financial Analyst 10/27/22 Saige Aguilar 09/26/23 documented as of this encounter
--- OUTSIDE RECORDS SUMMARY | 2025-01-01 06:42 | XMS_ITS | Encounter Summary ---
Author Organization [employer] Address [address] [facility] 7t [place] [address] Care Team Providers Care Instructional Support Assistant Name Role Phone Radha Jamison DO Primary Care Provider Abdias Murillo PharmD Unavailable Unavail able Nelia Sullivan PharmD Unavailable Letty Rinaldi Unavailable Dalila Carson RN Unavailable [phone] Ekta Reynolds Unavailable Reason for Visit * Reason Comments Med Refill Encounter Details Date Type Department Care Team (Late Contact Info) Description 11/10/2022 Refill [facility] MEDICINE 230 [place], [place] [phone] Radha Jamison DO [address] [place] [address] Chronic gastroesophageal reflux disease Social History Tobacco [...] 10:00 AM EST Medication Management [facility] MEDICINE 230 [place] [address] Nelia Sullivan PharmD [address] [place] [address] 03/13/2025 9:30 AM EST Office Visit [facility] OPTOMETRY [address] [place] [address] Radha Taylor, OD 267 [place] [address] documented as of this encounter Goals Goal [...] documented as of this encounter Care Teams Instructional Support Assistant Relationship Specialty Start Date End Date Radha Jamison DO [address] [place] [address] PCP - General Family Medicine 01/26/12 Abdias Murillo, PharmD [address] [place] [address] Pharmacist Internal Medicine 03/21/22 08/30/23 Nelia Sullivan PharmD [address] [place] [address] Pharmacist Internal Medicine 08/31/23 Letty Rinaldi 12/16/24 12/18/24 Dalila Carson, JOANN [address] [place] [address] Registered Nurse Family Medicine 12/31/24 Ekta Reynolds 12/31/24 Laurel Monterroso Certified Flight InstructorDirector Of Food And Nutrition Services 10/27/22 Saige Aguilar 09/26/23 documented as of this encounter
--- OUTSIDE RECORDS SUMMARY | 2025-01-01 06:42 | XMS_ITS | Encounter Summary ---
Author Organization [employer] Address 75 [facility] 7t [place] [address] Care Team Providers Care Audit Associate Name Role Phone Radha Jamison DO Primary Care Provider Abdias Murillo PharmD Unavailable Unavail able Nelia Sullivan PharmD Unavailable [phone] Letty Rinaldi Unavailable Dalila Carson RN Unavailable [phone] Ekta Reynolds Unavailable Reason for Visit * Reason Comments Med Refill Encounter Details Date Type Department Care Team (Late st Contact Info) Description 11/08/2022 Refill [facility] MED[facility]INE 230 [place], [place] [phone] Radha Jamison DO 230 [place], [place] [phone] Social History Tobacco Use Types Packs/Day Years [...] Health Questionnaire-2 Score 2 11/08/2022 11:27 AM Lucinda Colvin MA * How difficult have these problems made it for you to do your work, take care of things at home, or get along with other people? Answer Date of Assessment Author Somewhat difficult 11/08/2022 11:27 AM EDT Lucinda Hughes MA * Over the past 2 weeks, [...] much Not at all 11/08/2022 11:27 AM EDLucinda Duarte MA Feeling tired or having little energy [...] Health Questionnaire-9 Score 4 11/08/2022 11:27 AM EDT Lucinda Alexandra MA documented as of this encounter Miscellaneous Notes * Telephone Encounter - Radha Jamison DO - 11/09/2022 3:11 PM EDT Smaller pen needles sent. documented in this encounter Plan of Treatment Upcoming Encounters Date Type Department Care Team (Late st Contact Info) Description 01/07/2025 10:00 AM EST Medication Management [facility] [address] [place] [address] Nelia Sullivan PharmD [address] [place] [address] 03/13/2025 9:30 AM EST Office Visit [facility] OPTOMETRY [address] [place] [address] Radha Taylor, OD 267 [place] [address] documented as of this encounter Goals Goal [...] documented as of this encounter Care Teams Audit Associate Relationship Specialty Start Date End Date Radha Jamison DO [address] [place] [address] PCP - General Family Medicine 01/26/12 Abdias Murillo, PharmD [address] [place] [address] Pharmacist Internal Medicine 03/21/22 08/30/23 Nelia Sullivan PharmD [address] [place] [address], [place] [address] Pharmacist Internal Medicine 08/31/23 Letty Rinaldi 12/16/24 12/18/24 Dalila Carson, RN [address] [place] [address] Registered Nurse Family Medicine 12/31/24 Ekta Reynolds 12/31/24 Laurel Monterroso Surgical Brace MakerOff Track Betting Manager 10/27/22 Saige Aguilar 09/26/23 documented as of this encounter
--- OUTSIDE RECORDS SUMMARY | 2025-01-01 06:43 | XMS_ITS | Encounter Summary ---
Author Organization [employer] Address 75 [facility] 7t [place] [address] Care Team Providers Care Skin Care Technician Name Role Phone Radha Jamison DO Primary Care Provider Nelia Sullivan PharmD Unavailable Letty Rinaldi Unavailable Dalila Carson RN Unavailable [phone] Ekta Reynolds Unavailable Reason for Visit * Reason Comments Med Refill Encounter Details Date Type Department Care Team (Late st Contact Info) Description 11/21/2023 Refill [facility] MEDICINE 230 [place], [place] [phone] Radha Jamison DO [address] [place], [place] [phone] Chronic bilateral low back pain, unspecified whether [...] Description 01/07/2025 10:00 AM EST Medication Management [facility] MEDICINE [address] [place] [address] Nelia Sullivan, PharmD [address] [place] [address] 03/13/2025 9:30 AM EST Office Visit [facility] OPTOMETRY [address] [place] [address] Radha Taylor, OD [address] [place] [address] documented as of this encounter Goals Goal Patient Goal Type Associated Problems Recent Progress Patient-Stated? Author Record your blood pressure once per day Blood Pressure No Nelia Sullivan, PharmD Blood Pressure < 140/90 Blood Pressure 154/76(2024 2:07 PM EST) No Nelia Sullivan, PharmD Smoking cessation General No Puia, Nelia, [...] documented as of this encounter Care Teams Skin Care Technician Relationship Specialty Start Date End Date Radha Jamison DO [address] [place] [address] PCP - General Family Medicine 01/26/12 Nelia Sullivan, PharmD [address] [place] [address] Pharmacist Internal Medicine 08/31/23 Letty Rinaldi 12/16/24 12/18/24 Dalila Carson, JOANN [address] [place] [address] Registered Nurse Family Medicine 12/31/24 Ekta Reynolds 12/31/24 Laurel Monterroso Maintenance HelperDietary Services Director 10/27/22 Saige Aguilar 09/26/23 documented as of this encounter
--- OUTSIDE RECORDS SUMMARY | 2025-01-01 06:43 | XMS_ITS | Encounter Summary ---
Author Organization [employer] Address [address] [facility] [address] [place] [address] Care Team Providers Care Insurance Claims Processor Name Role Phone Radha Jamison DO Primary Care Provider Abdias Murillo PharmD Unavailable Unavail able Nelia Sullivan PharmD Unavailable Letty Rinaldi Unavailable Dalila Carson RN Unavailable [phone] Ekta Reynolds Unavailable Encounter Details Date Type Department Care Team (Late Contact Info) Description 02/03/2022 Orders Only [facility] MEDICINE [address] [place] [phone] Radha Jamison DO [address] [place] [address] [phone] Social History Tobacco Use Types Packs/Day Years [...] Description 01/07/2025 10:00 AM EST Medication Management [facility] MEDICINE [address] [place] [phone] PuiaNelia, PharmD [address] [place] [address] 03/13/2025 9:30 AM EST Office Visit [facility] OPTOMETRY [address] [facility] [place] [address] Radha Taylor, OD [address] [place] [address] documented as of this encounter Procedures Procedure [...] Sedimentation Rate 23(H) 0 - 20 MM/HR [facility] Comment:Patients with polycy themia and many hemoglobin abnormalitiesmay have depressed sed rates whereas patients with anemiamay have elevated sed rates. 04/24/2022 4:19 PM EDT 04/24/2022 4:27 PM EDT [facility] External Provider LAB BLO OD ORDERABLES Final Result Performing Organization Address [facility] Co de Phone Number [facility] [address] [place] [phone] * C-reactive Protein (04/24/2022 4:19 PM EDT) Pathologist [facility] C Reactive Protein 0.28 < or = 0.50 mg/dL [facility] 04/24/2022 4:19 PM EDT 04/24/2022 4:22 PM EDT [facility] External Provider LAB BLO OD ORDERABLES Final Result Performing Organization Address [facility] Phone Number [facility] [address] [place] [phone] * Magnesium (04/24/2022 4:19 PM EDT) Pathologist [facility] Magnesium 1.7 1.6 - 2.6 mg/dL [facility] 04/24/2022 4:19 PM EDT 04/24/2022 4:22 PM EDT [facility] External Provider LAB BLO OD ORDERABLES Final Result Performing Organization Address [facility] de Phone Number [facility] [address] [place] [phone] * (ABNORMAL) Basic Metabolic Panel (04/24/2022 4:19 PM EDT) Pathologist [facility] Sodium 135 135 - 145 mmol/L [facility] Potassium 4.7 3.3 - 5.1 mmol/L [facility] Chloride 100 96 - 108 mmol/L [facility] Carbon Dioxide 27 22 - 29 mmol/L [facility] Anion Gap 13 12 - 20 [facility] Urea Nitrogen (BUN) 20(H) 9 - 16 mg/dL [facility] Creatinine, Serum 1.01 0.5 - 1.4 mg/dL [facility] Creatinine Clr Calc Pharmacy 48.8 [facility] Comment:Provided height and weight: 152.4 cm,62.4 kg.eGFR (calculated from the MDRD study equation) and eCrCl(calculated from the Cockcroft-Gault equation) are based ondifferent parameters and may not yield comparable results.If eCrCl result is absurd, please check patient'sheight/weight. Estimated Glomerular Filt Rate 56 [facility] Comment:NOTE: For -Am erican individuals, multiply the result by 1.210.Chronic Kidney Disease: Estimated GFR < 60 mL/min/1.48s3Tprasl Kidney Disease: Estimated GFR < 15 mL/min/1.73m2 Glucose 269(H) 60 - 115 mg/dL [facility] Calcium 9.2 8.4 - 10.2 mg/dL [facility] 04/24/2022 4:19 PM EDT 04/24/2022 4:22 PM EDT us [facility] External Provider LAB BLO OD ORDERABLES Final Result [facility] [address] [place] [phone] * Hepatic Function Panel (04/24/2022 4:19 PM EDT) Bilirubin, Total 0.6 0.0 - 1.0 mg/dL [facility] Bilirubin, Direct <0.2 0.0 - 0.5 mg/dL [facility] Aspartate Amino Transferase 11 5 - 31 U/L [facility] Alanine Aminotransferase 6 0 - 31 U/L [facility] Total Protein 6.5 6.5 - 8.0 g/dL [facility] Albumin Level 4.0 3.5 - 5.0 g/dL [facility] Alkaline Phosphatase 80 39 - 117 U/L [facility] 04/24/2022 4:19 PM EDT 04/24/2022 4:22 PM EDT [facility] External Provider LAB BLO OD ORDERABLES Final Result [facility] [address] [place] [address] [phone] * (ABNORMAL) CBC auto differential (04/24/2022 4:19 PM EDT) White Blood Count 7.3 4.8 - 10.8 X10*3/uL [facility] Red Blood Count 4.14(L) 4.20 - 5.50 X10*6/uL [facility] Hemoglobin 12.1 12.0 - 16.0 g/dl [facility] Hematocrit 36.6(L) 37.0 - 47.0 % [facility] Mean Corpuscular Volume 88.4 80.0 - 98.0 fL [facility] Mean Corpuscular Hemoglobin 29.2 27.0 - 33.0 pg [facility] Mean Corpuscular HGB Conc 33.1 31.0 - 35.0 g/dl [facility] Red Cell Distribution Width 13.4 11.0 - 16.0 % [facility] Platelet Count 333 160 - 400 X10*3/uL [facility] Mean Platelet Volume 8.9(L) 9.4 - 12.3 fL [facility] Neutrophils Percent Auto 62.4 45 - 73 % [facility] Imm Gran Pct Auto 0.3 0.0 - 0.4 % [facility] Lymphocytes Percent Auto 28.8 20 - 40 % [facility] Monocytes Percent Auto 5.3 2 - 11 % [facility] Eosinophils Percent Auto 2.7 0 - 4 % [facility] Basophils Percent Auto 0.5 0 - 2 % [facility] NRBC Pct Auto 0.0 0.0 - 0.2 /100WBC [facility] Neutrophils Absolute Auto 4.6 2.0 - 8.3 x10*3/uL [facility] Imm Gran Abs Auto 0.02 0.00 - 0.03 X10*3/uL [facility] Lymphocytes Absolute Auto 2.1 1.2 - 4.9 X10*3/uL [facility] Monocytes Absolute Auto 0.4 0.1 - 1.2 X10*3/uL [facility] Eosinophils Absolute Auto 0.2 0.0 - 0.4 X10*3/uL [facility] Basophils Absolute Auto 0.0 0.0 - 0.2 X10*3/uL [facility] NRBC Abs Auto 0.000 0.0 - 0.012 X10*3/uL [facility] 04/24/2022 4:19 PM EDT 04/24/2022 4:22 PM EDT us [facility] External Provider LAB BLO OD ORDERABLES Final Result [facility] [address] [place] [phone] * (ABNORMAL) Urinalysis, Complete, with Reflex to Culture (04/17/2022 10:53 AM EST) Color Urine Yellow [facility] Appearance Urine Clear [facility] PH 7.5 5.0 - 9.0 [facility] Glucose Urine UA 100(A) Negative mg/dL [facility] Urine Blood Negative Negative [facility] Specific [place] - Urine >=1.030(H) 1.005 - 1.025 [facility] Urine Protein 100 (2+)(A) Neg-Trace mg/dL [facility] Urine Ketones Negative Negative mg/dL [facility] Nitrite Urine Negative Negative [facility] Leukocyte Esterase Urine Negative Negative [facility] RBC Urine 3-5(A) 0 - 2 /HPF [facility] Urine WBC 0-5 0 - 5 /HPF [facility] Urine Squamous Epithelial Cell 3-5 0 - 2 /HPF [facility] Urine Bacteria None Seen None Seen [facility] Hyaline Casts, Urine 0-2 0 - 2 /LPF [facility] 04/17/2022 10:5 3 AM EST 04/17/2022 10:56 AM EST Narrative [facility] - 04/17/2022 11:06 AM EST Urine, Clean Catch [facility] External Provider LAB URI NE ORDERABLES Final Result Performing Organization Address City/[facility] Co de Phone Number [facility] [address] [place] [address] [phone] * (ABNORMAL) Sed Rate by Modified Liloren (04/17/2022 8:21 AM EST) Erythrocyte Sedimentation Rate 23(H) 0 - 20 MM/HR [facility] Comment:Patients with polycy themia and many hemoglobin abnormalitiesmay have depressed sed rates whereas patients with anemiamay have elevated sed rates. 04/17/2022 8:21 AM EST 04/17/2022 8:41 AM EST [facility] External Provider LAB BLO OD ORDERABLES Final Result Performing Organization Address [facility] Co de Phone Number [facility] [address] [place] [address] [phone] * Lipase (04/17/2022 8:21 AM EST) Lipase 10 8 - 78 U/L [facility] 04/17/2022 8:21 AM EST 04/17/2022 8:24 AM EST [facility] External Provider LAB BLO OD ORDERABLES Final Result Performing Organization Address [facility] Co de Phone Number [facility] [address] [place] [address] [phone] * C-reactive Protein (04/17/2022 8:21 AM EST) Pathologist [facility] C Reactive Protein 0.23 < or = 0.50 mg/dL [facility] 04/17/2022 8:21 AM EST 04/17/2022 8:24 AM EST [facility] External Provider LAB BLO OD ORDERABLES Final Result Performing Organization Address [facility] Phone Number [facility] [address] [place] [phone] * Magnesium (04/17/2022 8:21 AM EST) [facility] Magnesium 1.6 1.6 - 2.6 mg/dL [facility] 04/17/2022 8:21 AM EST 04/17/2022 8:24 AM EST [facility] External Provider LAB BLO OD ORDERABLES Final Result Performing Organization Address [facility] Phone Number [facility] [address] [place] [phone] * (ABNORMAL) Hepatic Function Panel (04/17/2022 8:21 AM EST) Pathologist [facility] Bilirubin, Total 0.7 0.0 - 1.0 mg/dL [facility] Bilirubin, Direct <0.2 0.0 - 0.5 mg/dL [facility] Aspartate Amino Transferase 10 5 - 31 U/L [facility] Alanine Aminotransferase 7 0 - 31 U/L [facility] Total Protein 6.2(L) 6.5 - 8.0 g/dL [facility] Albumin Level 3.8 3.5 - 5.0 g/dL [facility] Alkaline Phosphatase 71 39 - 117 U/L [facility] 04/17/2022 8:21 AM EST 04/17/2022 8:24 AM EST [facility] External Provider LAB BLO OD ORDERABLES Final Result Performing Organization Address [facility]/ZIP Co de Phone Number [facility] [address] [place] [phone] [phone] * (ABNORMAL) Basic Metabolic Panel (04/17/2022 8:21 AM EST) Sodium 138 135 - 145 mmol/L [facility] Potassium 4.9 3.3 - 5.1 mmol/L [facility] Chloride 104 96 - 108 mmol/L [facility] Carbon Dioxide 26 22 - 29 mmol/L [facility] Anion Gap 13 12 - 20 [facility] Urea Nitrogen (BUN) 17(H) 9 - 16 mg/dL [facility] Creatinine, Serum 0.79 0.5 - 1.4 mg/dL [facility] Creatinine Clr Calc Pharmacy 66.3 [facility] Comment:Provided height and weight: 157.48 cm,63.503 kg.eGFR (calculated from the MDRD study equation) and eCrCl(calculated from the Cockcroft-Gault equation) are based ondifferent parameters and may not yield comparable results.If eCrCl result is absurd, please check patient'sheight/weight. Estimated Glomerular Filt Rate >60 [facility] Comment:NOTE: For -Am erican individuals, multiply the result by 1.210.Chronic Kidney Disease: Estimated GFR < 60 mL/min/[id number] Kidney Disease: Estimated GFR < 15 mL/min/1.73m2 Glucose 272(H) 60 - 115 mg/dL [facility] Calcium 9.1 8.4 - 10.2 mg/dL [facility] 04/17/2022 8:21 AM EST 04/17/2022 8:24 AM EST us [facility] External Provider LAB BLO OD ORDERABLES Final Result Performing Organization Address [facility]/ZIP Co de Phone Number [facility] [address] [place] [phone] [phone] * (ABNORMAL) CBC auto differential (04/17/2022 8:21 AM EST) White Blood Count 5.7 4.8 - 10.8 X10*3/uL [facility] Red Blood Count 4.01(L) 4.20 - 5.50 X10*6/uL [facility] Hemoglobin 11.7(L) 12.0 - 16.0 g/dl [facility] Hematocrit 35.9(L) 37.0 - 47.0 % [facility] Mean Corpuscular Volume 89.5 80.0 - 98.0 fL [facility] Mean Corpuscular Hemoglobin 29.2 27.0 - 33.0 pg [facility] Mean Corpuscular HGB Conc 32.6 31.0 - 35.0 g/dl [facility] Red Cell Distribution Width 13.4 11.0 - 16.0 % [facility] Platelet Count 309 160 - 400 X10*3/uL [facility] Mean Platelet Volume 9.3(L) 9.4 - 12.3 fL [facility] Neutrophils Percent Auto 60.9 45 - 73 % [facility] Imm Gran Pct Auto 0.4 0.0 - 0.4 % [facility] Lymphocytes Percent Auto 27.3 20 - 40 % [facility] Monocytes Percent Auto 6.3 2 - 11 % [facility] Eosinophils Percent Auto 4.4(H) 0 - 4 % [facility] Basophils Percent Auto 0.7 0 - 2 % [facility] NRBC Pct Auto 0.0 0.0 - 0.2 /100WBC [facility] Neutrophils Absolute Auto 3.5 2.0 - 8.3 x10*3/uL [facility] Imm Gran Abs Auto 0.02 0.00 - 0.03 X10*3/uL [facility] Lymphocytes Absolute Auto 1.6 1.2 - 4.9 X10*3/uL [facility] Monocytes Absolute Auto 0.4 0.1 - 1.2 X10*3/uL [facility] Eosinophils Absolute Auto 0.3 0.0 - 0.4 X10*3/uL [facility] Basophils Absolute Auto 0.0 0.0 - 0.2 X10*3/uL [facility] NRBC Abs Auto 0.000 0.0 - 0.012 X10*3/uL [facility] 04/17/2022 8:21 AM EST 04/17/2022 8:24 AM EST [facility] External Provider LAB BLO OD ORDERABLES Final Result Performing Organization Address [facility] Co de Phone Number [facility] [address] [place] [phone] * Creatinine, Serum (04/13/2022 7:33 AM EST) Creatinine, Serum 0.75 0.5 - 1.4 mg/dL [facility] Creatinine Clr Calc Pharmacy 70.3 [facility] Comment:Provided height and weight: 157.48 cm,64.41 kg.eGFR (calculated from the MDRD study equation) and eCrCl(calculated from the Cockcroft-Gault equation) are based ondifferent parameters and may not yield comparable results.If eCrCl result is absurd, please check patient'sheight/weight. Estimated Glomerular Filt Rate >60 [facility] Comment:NOTE: For -Am erican individuals, multiply the result by 1.210.Chronic Kidney Disease: Estimated GFR < 60 mL/min/[id number] Kidney Disease: Estimated GFR < 15 mL/min/1.73m2 04/13/2022 7:33 AM EST 04/13/2022 7:38 AM EST [facility] External Provider LAB BLO OD ORDERABLES Final Result Performing Organization Address [facility] Co de Phone Number [facility] [address] [place] [phone] * BUN (Blood Urea Nitrogen) (04/13/2022 7:33 AM EST) Urea Nitrogen (BUN) 12 9 - 16 mg/dL [facility] 04/13/2022 7:33 AM EST 04/13/2022 7:38 AM EST [facility] External Provider LAB BLO OD ORDERABLES Final Result [facility] [address] [place] [phone] * (ABNORMAL) CBC auto differential (04/13/2022 7:33 AM EST) White Blood Count 6.6 4.8 - 10.8 X10*3/uL [facility] Red Blood Count 4.12(L) 4.20 - 5.50 X10*6/uL [facility] Hemoglobin 12.1 12.0 - 16.0 g/dl [facility] Hematocrit 36.6(L) 37.0 - 47.0 % [facility] Mean Corpuscular Volume 88.8 80.0 - 98.0 fL [facility] Mean Corpuscular Hemoglobin 29.4 27.0 - 33.0 pg [facility] Mean Corpuscular HGB Conc 33.1 31.0 - 35.0 g/dl [facility] Red Cell Distribution Width 13.6 11.0 - 16.0 % [facility] Platelet Count 291 160 - 400 X10*3/uL [facility] Mean Platelet Volume 9.0(L) 9.4 - 12.3 fL [facility] Neutrophils Percent Auto 55.5 45 - 73 % [facility] Imm Gran Pct Auto 0.2 0.0 - 0.4 % [facility] Lymphocytes Percent Auto 33.7 20 - 40 % [facility] Monocytes Percent Auto 6.5 2 - 11 % [facility] Eosinophils Percent Auto 3.6 0 - 4 % [facility] Basophils Percent Auto 0.5 0 - 2 % [facility] NRBC Pct Auto 0.0 0.0 - 0.2 /100WBC [facility] Neutrophils Absolute Auto 3.7 2.0 - 8.3 x10*3/uL [facility] Imm Gran Abs Auto 0.01 0.00 - 0.03 X10*3/uL [facility] Lymphocytes Absolute Auto 2.2 1.2 - 4.9 X10*3/uL [facility] Monocytes Absolute Auto 0.4 0.1 - 1.2 X10*3/uL [facility] Eosinophils Absolute Auto 0.2 0.0 - 0.4 X10*3/uL [facility] Basophils Absolute Auto 0.0 0.0 - 0.2 X10*3/uL [facility] NRBC Abs Auto 0.000 0.0 - 0.012 X10*3/uL [facility] 04/13/2022 7:33 AM EST 04/13/2022 7:38 AM EST [facility] External Provider LAB BLO OD ORDERABLES Final Result Performing Organization Address City/[facility]/ZIP Co de Phone Number [facility] [address] [place] [phone] * (ABNORMAL) GLUCOSE, WHOLE BLOOD (04/13/2022 7:27 AM EST) [facility] Glucose, Whole Blood 197(H) 60 - 115 mg/dL [facility] Comment:METER #: [id number] 04/13/2022 7:27 AM EST 04/13/2022 7:31 AM EST [facility] External Provider LAB BLO OD ORDERABLES Final Result Performing Organization Address [facility] Co de Phone Number [facility] [address] [place] [phone] * HIGH SENSITIVITY TROPONIN I (04/03/2022 8:36 PM EST) [facility] TROPONIN I HIGH SENSITIVITY 6.0 <3.5 - 17.0 ng/L [facility] Comment:The Ibrahim high sens itivity Troponin-I results should beused in conjunction with other diagnostic information suchas ECG, clinical observations and information, and patientsymptoms to aid in the diagnosis of [place]. 04/03/2022 8:36 PM EST 04/03/2022 8:38 PM EST [facility] External Provider LAB BLO OD ORDERABLES Final Result Performing Organization Address [facility]/ZIP Co de Phone Number [facility] [address] [place] [phone] * Lipase (04/03/2022 8:36 PM EST) Lipase 10 8 - 78 U/L [facility] 04/03/2022 8:36 PM EST 04/03/2022 8:38 PM EST [facility] External Provider LAB BLO OD ORDERABLES Final Result Performing Organization Address [facility] Co de Phone Number [facility] [address] [place] [phone] * (ABNORMAL) Basic Metabolic Panel (04/03/2022 8:36 PM EST) Sodium 138 135 - 145 mmol/L [facility] Potassium 3.9 3.3 - 5.1 mmol/L [facility] Chloride 104 96 - 108 mmol/L [facility] Carbon Dioxide 27 22 - 29 mmol/L [facility] Anion Gap 11(L) 12 - 20 [facility] Urea Nitrogen (BUN) 11 9 - 16 mg/dL [facility] Creatinine, Serum 0.74 0.5 - 1.4 mg/dL [facility] Creatinine Clr Calc Pharmacy 70.7 [facility] Comment:Provided height and weight: 157.48 cm,63.503 kg.eGFR (calculated from the MDRD study equation) and eCrCl(calculated from the Cockcroft-Gault equation) are based ondifferent parameters and may not yield comparable results.If eCrCl result is absurd, please check patient'sheight/weight. Estimated Glomerular Filt Rate >60 [facility] Comment:NOTE: For -Am erican individuals, multiply the result by 1.210.Chronic Kidney Disease: Estimated GFR < 60 mL/min/[id number] Kidney Disease: Estimated GFR < 15 mL/min/1.73m2 Glucose 246(H) 60 - 115 mg/dL [facility] Calcium 9.0 8.4 - 10.2 mg/dL [facility] 04/03/2022 8:36 PM EST 04/03/2022 8:38 PM EST [facility] External Provider LAB BLO OD ORDERABLES Final Result Performing Organization Address [facility] de Phone Number [facility] [address] [place] [phone] * (ABNORMAL) Hepatic Function Panel (04/03/2022 8:36 PM EST) Bilirubin, Total 0.6 0.0 - 1.0 mg/dL [facility] Bilirubin, Direct 0.2 0.0 - 0.5 mg/dL [facility] Aspartate Amino Transferase 10 5 - 31 U/L [facility] Alanine Aminotransferase 8 0 - 31 U/L [facility] Total Protein 5.8(L) 6.5 - 8.0 g/dL [facility] Albumin Level 3.7 3.5 - 5.0 g/dL [facility] Alkaline Phosphatase 76 39 - 117 U/L [facility] 04/03/2022 8:36 PM EST 04/03/2022 8:38 PM EST [facility] External Provider LAB BLO OD ORDERABLES Final Result Performing Organization Address [facility] Co de Phone Number [facility] [address] [place] [phone] * (ABNORMAL) CBC auto differential (04/03/2022 8:36 PM EST) White Blood Count 6.0 4.8 - 10.8 X10*3/uL [facility] Red Blood Count 4.10(L) 4.20 - 5.50 X10*6/uL [facility] Hemoglobin 12.0 12.0 - 16.0 g/dl [facility] Hematocrit 35.6(L) 37.0 - 47.0 % [facility] Mean Corpuscular Volume 86.8 80.0 - 98.0 fL [facility] Mean Corpuscular Hemoglobin 29.3 27.0 - 33.0 pg [facility] Mean Corpuscular HGB Conc 33.7 31.0 - 35.0 g/dl [facility] Red Cell Distribution Width 13.3 11.0 - 16.0 % [facility] Platelet Count 276 160 - 400 X10*3/uL [facility] Mean Platelet Volume 9.2(L) 9.4 - 12.3 fL [facility] Neutrophils Percent Auto 58.2 45 - 73 % [facility] Imm Gran Pct Auto 0.2 0.0 - 0.4 % [facility] Lymphocytes Percent Auto 32.9 20 - 40 % [facility] Monocytes Percent Auto 6.0 2 - 11 % [facility] Eosinophils Percent Auto 2.2 0 - 4 % [facility] Basophils Percent Auto 0.5 0 - 2 % [facility] NRBC Pct Auto 0.0 0.0 - 0.2 /100WBC [facility] Neutrophils Absolute Auto 3.5 2.0 - 8.3 x10*3/uL [facility] Imm Gran Abs Auto 0.01 0.00 - 0.03 X10*3/uL [facility] Lymphocytes Absolute Auto 2.0 1.2 - 4.9 X10*3/uL [facility] Monocytes Absolute Auto 0.4 0.1 - 1.2 X10*3/uL [facility] Eosinophils Absolute Auto 0.1 0.0 - 0.4 X10*3/uL [facility] Basophils Absolute Auto 0.0 0.0 - 0.2 X10*3/uL [facility] NRBC Abs Auto 0.000 0.0 - 0.012 X10*3/uL [facility] 04/03/2022 8:36 PM EST 04/03/2022 8:38 PM EST [facility] External Provider LAB BLO OD ORDERABLES Final Result Performing Organization Address [facility] de Phone Number [facility] [address] [place] [phone] * (ABNORMAL) GLUCOSE, WHOLE BLOOD (04/03/2022 7:56 PM EST) Pathologist [facility] Glucose, Whole Blood 227(H) 60 - 115 mg/dL [facility] Comment:METER #: [id number] 6 04/03/2022 7:56 PM EST 04/03/2022 8:01 PM EST [facility] External Provider LAB BLO OD ORDERABLES Final Result Performing Organization Address [facility] Phone Number [facility] [address] [place] [phone] * (ABNORMAL) B Type Natriuretic Peptide (BNP) (03/09/2022 5:39 PM EST) Pathologist [facility] B Type Natriuretic Peptide 125(H) <100 pg/mL [facility] Comment:For those patients w ho are being treated with Natrecor(nesiritide, recombinant BNP), BNP testing should beperformed at least two hours post treatment in order toensure that only endogenous levels of BNP are detected. 03/09/2022 5:39 PM EST 03/09/2022 6:48 PM EST [facility] External Provider LAB BLO OD ORDERABLES Final Result Performing Organization Address [facility] de Phone Number [facility] [address] [place] [phone] * SARS-CoV-2 RNA, Influenza A/B, and RSV RNA, Ql NAAT (03/09/2022 5:39 PM EST) Pathologist [facility] Influenza A PCR NEGATIVE Negative [facility] Influenza B PCR NEGATIVE Negative [facility] Resp Syncy Virus RNA Qual PCR NEGATIVE Negative [facility] SARS COV2 PCR NEGATIVE Negative [facility] SARS/Flu/RSV Note See Note [facility] Comment:All test results mus t [...] use by authorized laboratories.Testing performed on the OneBuild GeneXpert utilizingreal-time RT-PCR.All SARS CoV2 and positive influenza A/B results arereported to [facility]. 03/09/2022 5:39 PM EST 03/09/2022 5:43 PM EST [facility] Exter nal Provider LAB MICROBIOLOGY - GENERAL ORDERABLES Final Result [facility] [address] [place] [phone] * HIGH SENSITIVITY TROPONIN I (03/09/2022 5:39 PM EST) Pathologist [facility] TROPONIN I HIGH SENSITIVITY 5.6 <3.5 - 17.0 ng/L [facility] Comment:The Ibrahim high sens itivity Troponin-I results should beused in conjunction with other diagnostic information suchas ECG, clinical observations and information, and patientsymptoms to aid in the diagnosis of [place]. 03/09/2022 5:39 PM EST 03/09/2022 5:43 PM EST us [facility] External Provider LAB BLO OD ORDERABLES Final Result [facility] [address] [place] [phone] * (ABNORMAL) Comprehensive Metabolic Panel (03/09/2022 5:39 PM EST) Sodium 139 135 - 145 mmol/L [facility] Potassium 3.9 3.3 - 5.1 mmol/L [facility] Chloride 103 96 - 108 mmol/L [facility] Carbon Dioxide 27 22 - 29 mmol/L [facility] Anion Gap 13 12 - 20 [facility] Urea Nitrogen (BUN) 18(H) 9 - 16 mg/dL [facility] Creatinine, Serum 0.95 0.5 - 1.4 mg/dL [facility] Creatinine Clr Calc Pharmacy 53.0 [facility] Comment:Provided height and weight: 152.4 cm,65.2 kg.eGFR (calculated from the MDRD study equation) and eCrCl(calculated from the Cockcroft-Gault equation) are based ondifferent parameters and may not yield comparable results.If eCrCl result is absurd, please check patient'sheight/weight. Estimated Glomerular Filt Rate >60 [facility] Comment:NOTE: For -Am erican individuals, multiply the result by 1.210.Chronic Kidney Disease: Estimated GFR < 60 mL/min/1.64q1Cegoct Kidney Disease: Estimated GFR < 15 mL/min/1.73m2 Glucose 326(H) 60 - 115 mg/dL [facility] Calcium 9.1 8.4 - 10.2 mg/dL [facility] Bilirubin, Total 0.3 0.0 - 1.0 mg/dL [facility] Aspartate Amino Transferase 8 5 - 31 U/L [facility] Alanine Aminotransferase <6 0 - 31 U/L [facility] Total Protein 5.9(L) 6.5 - 8.0 g/dL [facility] Albumin Level 3.6 3.5 - 5.0 g/dL [facility] Alkaline Phosphatase 81 39 - 117 U/L [facility] 03/09/2022 5:39 PM EST 03/09/2022 5:43 PM EST us [facility] External Provider LAB BLO OD ORDERABLES Final Result [facility] [address] [place] [phone] * (ABNORMAL) CBC auto differential (03/09/2022 5:39 PM EST) White Blood Count 7.3 4.8 - 10.8 X10*3/uL [facility] Red Blood Count 4.03(L) 4.20 - 5.50 X10*6/uL [facility] Hemoglobin 11.7(L) 12.0 - 16.0 g/dl [facility] Hematocrit 35.1(L) 37.0 - 47.0 % [facility] Mean Corpuscular Volume 87.1 80.0 - 98.0 fL [facility] Mean Corpuscular Hemoglobin 29.0 27.0 - 33.0 pg [facility] Mean Corpuscular HGB Conc 33.3 31.0 - 35.0 g/dl [facility] Red Cell Distribution Width 13.4 11.0 - 16.0 % [facility] Platelet Count 296 160 - 400 X10*3/uL [facility] Mean Platelet Volume 9.3(L) 9.4 - 12.3 fL [facility] Neutrophils Percent Auto 63.9 45 - 73 % [facility] Imm Gran Pct Auto 0.1 0.0 - 0.4 % [facility] Lymphocytes Percent Auto 27.1 20 - 40 % [facility] Monocytes Percent Auto 5.9 2 - 11 % [facility] Eosinophils Percent Auto 2.6 0 - 4 % [facility] Basophils Percent Auto 0.4 0 - 2 % [facility] NRBC Pct Auto 0.0 0.0 - 0.2 /100WBC [facility] Neutrophils Absolute Auto 4.6 2.0 - 8.3 x10*3/uL [facility] Imm Gran Abs Auto 0.01 0.00 - 0.03 X10*3/uL [facility] Lymphocytes Absolute Auto 2.0 1.2 - 4.9 X10*3/uL [facility] Monocytes Absolute Auto 0.4 0.1 - 1.2 X10*3/uL [facility] Eosinophils Absolute Auto 0.2 0.0 - 0.4 X10*3/uL [facility] Basophils Absolute Auto 0.0 0.0 - 0.2 X10*3/uL [facility] NRBC Abs Auto 0.000 0.0 - 0.012 X10*3/uL [facility] 03/09/2022 5:39 PM EST 03/09/2022 5:43 PM EST [facility] External Provider LAB BLO OD ORDERABLES Final Result [facility] [address] [place] [phone] * Prothrombin Time-INR (03/09/2022 5:39 PM EST) Prothrombin Time 10.9 10.0 - 13.1 SEC [facility] INTERNATIONAL NORM RATIO 1.0 0.9 - 1.1 [facility] Comment:INTERNATIONAL NORMAL IZED RATIO [...] OD ORDERABLES Final Result Performing Organization Address [facility] Co de Phone Number [facility] [address] [place] [phone] * GLUCOSE, WHOLE BLOOD (03/01/2022 12:41 AM EST) Glucose, Whole Blood 79 60 - 115 mg/dL [facility] Comment:METER #: [id number] 1 03/01/2022 12:4 1 AM EST 03/01/2022 12:46 AM EST [facility] External Provider LAB BLO OD ORDERABLES Final Result Performing Organization Address [facility] Phone Number [facility] [address] [place] [phone] * (ABNORMAL) GLUCOSE, WHOLE BLOOD (02/28/2022 10:39 PM EST) Glucose, Whole Blood 273(H) 60 - 115 mg/dL [facility] Comment:METER #: [id number] 1 02/28/2022 10:3 9 PM EST 02/28/2022 10:45 PM EST [facility] External Provider LAB BLO OD ORDERABLES Final Result Performing Organization Address [facility] Co de Phone Number [facility] [address] [place] [phone] * (ABNORMAL) Comprehensive Metabolic Panel (02/28/2022 9:42 PM EST) Sodium 138 135 - 145 mmol/L [facility] Potassium 4.3 3.3 - 5.1 mmol/L [facility] Comment:Slight Hemolysis Chloride 106 96 - 108 mmol/L [facility] Carbon Dioxide 24 22 - 29 mmol/L [facility] Anion Gap 12 12 - 20 [facility] Urea Nitrogen (BUN) 14 9 - 16 mg/dL [facility] Creatinine, Serum 0.87 0.5 - 1.4 mg/dL [facility] Creatinine Clr Calc Pharmacy 57.2 [facility] Comment:Provided height and weight: 152.4 cm,63.503 kg.eGFR (calculated from the MDRD study equation) and eCrCl(calculated from the Cockcroft-Gault equation) are based ondifferent parameters and may not yield comparable results.If eCrCl result is absurd, please check patient'sheight/weight. Estimated Glomerular Filt Rate >60 [facility] Comment:NOTE: For -Am erican individuals, multiply the result by 1.210.Chronic Kidney Disease: Estimated GFR < 60 mL/min/1.86m1Kptsyy Kidney Disease: Estimated GFR < 15 mL/min/1.73m2 Glucose 378(HH) 60 - 115 mg/dL [facility] Comment:Critical value for t est(s): GLUR Results called to and readback by: EULA Person calling: BIANKA Date: 02/28/22Time: 2220 Calcium 9.3 8.4 - 10.2 mg/dL [facility] Bilirubin, Total 0.3 0.0 - 1.0 mg/dL [facility] Aspartate Amino Transferase 12 5 - 31 U/L [facility] Comment:Slight Hemolysis Alanine Aminotransferase 7 0 - 31 U/L [facility] Total Protein 6.7 6.5 - 8.0 g/dL [facility] Albumin Level 3.9 3.5 - 5.0 g/dL [facility] Alkaline Phosphatase 83 39 - 117 U/L [facility] 02/28/2022 9:42 PM EST 02/28/2022 9:48 PM EST us [facility] External Provider LAB BLO OD ORDERABLES Final Result [facility] [address] [place] [phone] * HIGH SENSITIVITY TROPONIN I (02/28/2022 9:42 PM EST) TROPONIN I HIGH SENSITIVITY 7.1 <3.5 - 17.0 ng/L [facility] Comment:The Ibrahim high sens itivity Troponin-I results should beused in conjunction with other diagnostic information suchas ECG, clinical observations and information, and patientsymptoms to aid in the diagnosis of [place]. 02/28/2022 9:42 PM EST 02/28/2022 9:48 PM EST us [facility] External Provider LAB BLO OD ORDERABLES Final Result [facility] [address] [place] [address] [phone] * (ABNORMAL) CBC (02/28/2022 9:42 PM EST) [facility] White Blood Count 7.0 4.8 - 10.8 X10*3/uL [facility] Red Blood Count 4.22 4.20 - 5.50 X10*6/uL [facility] Hemoglobin 12.1 12.0 - 16.0 g/dl [facility] Hematocrit 36.4(L) 37.0 - 47.0 % [facility] Mean Corpuscular Volume 86.3 80.0 - 98.0 fL [facility] Mean Corpuscular Hemoglobin 28.7 27.0 - 33.0 pg [facility] Mean Corpuscular HGB Conc 33.2 31.0 - 35.0 g/dl [facility] Red Cell Distribution Width 13.3 11.0 - 16.0 % [facility] Platelet Count 311 160 - 400 X10*3/uL [facility] Mean Platelet Volume 9.7 9.4 - 12.3 fL [facility] NRBC Pct Auto 0.0 0.0 - 0.2 /100WBC [facility] NRBC Abs Auto 0.000 0.0 - 0.012 X10*3/uL [facility] 02/28/2022 9:42 PM EST 02/28/2022 9:48 PM EST [facility] External Provider LAB BLO OD ORDERABLES Final Result Performing Organization Address City/[facility]/ZIP Co de Phone Number [facility] [address] [place] [phone] * (ABNORMAL) GLUCOSE, WHOLE BLOOD (02/28/2022 9:38 PM EST) Glucose, Whole Blood 379(HH) 60 - 115 mg/dL [facility] Comment:METER #: [id number] 1 02/28/2022 9:38 PM EST 02/28/2022 9:48 PM EST [facility] External Provider LAB BLO OD ORDERABLES Final Result Performing Organization Address [facility] Co de Phone Number [facility] [address] [place] [phone] * (ABNORMAL) Urinalysis, Complete, with Reflex to Culture (02/22/2022 3:20 PM EST) Color Urine Yellow [facility] Appearance Urine Cloudy [facility] PH 6.5 5.0 - 9.0 [facility] Glucose Urine UA >=1000(A) Negative mg/dL [facility] Urine Blood Negative Negative [facility] Specific [place] - Urine 1.020 1.005 - 1.025 [facility] Urine Protein 100 (2+)(A) Neg-Trace mg/dL [facility] Urine Ketones Negative Negative mg/dL [facility] Nitrite Urine Negative Negative [facility] Leukocyte Esterase Urine Small (1+)(A) Negative [facility] RBC Urine 3-5(A) 0 - 2 /HPF [facility] Urine WBC 0-5 0 - 5 /HPF [facility] Urine Squamous Epithelial Cell 0-2 0 - 2 /HPF [facility] Urine Bacteria None Seen None Seen [facility] Hyaline Casts, Urine 3-5 0 - 2 /LPF [facility] 02/22/2022 3:20 PM EST 02/22/2022 3:27 PM EST Narrative [facility] - 02/22/2022 4:14 PM EST [id number], Clean Catch [facility] External Provider LAB URI NE ORDERABLES Final Result Performing Organization Address [facility]/ZIP Co de Phone Number [facility] [address] [place] [phone] * SARS-CoV-2 RNA, Influenza A/B, and RSV RNA, Ql NAAT (02/22/2022 3:14 PM EST) Influenza A PCR NEGATIVE Negative [facility] Influenza B PCR NEGATIVE Negative [facility] Resp Syncy Virus RNA Qual PCR NEGATIVE Negative [facility] SARS COV2 PCR NEGATIVE Negative [facility] SARS/Flu/RSV Note See Note [facility] Comment:All test results mus t [...] use by authorized laboratories.Testing performed on the [employer] GeneXpert utilizingreal-time RT-PCR.All SARS CoV2 and positive influenza A/B results arereported to [facility]. 02/22/2022 3:14 PM EST 02/22/2022 3:19 PM EST [facility] Exter nal Provider LAB MICROBIOLOGY - GENERAL ORDERABLES Final Result Performing Organization Address [facility]/ZIP Co de Phone Number [facility] [address] [place] [phone] * HIGH SENSITIVITY TROPONIN I (02/22/2022 3:14 PM EST) [facility] TROPONIN I HIGH SENSITIVITY 8.8 <3.5 - 17.0 ng/L [facility] Comment:The Ibrahim high sens itivity Troponin-I results should beused in conjunction with other diagnostic information suchas ECG, clinical observations and information, and patientsymptoms to aid in the diagnosis of [place]. 02/22/2022 3:14 PM EST 02/22/2022 3:19 PM EST [facility] External Provider LAB BLO OD ORDERABLES Final Result Performing Organization Address [facility]/ZIP Co de Phone Number [facility] [address] [place] [phone] * Magnesium (02/22/2022 3:14 PM EST) [facility] Magnesium 1.6 1.6 - 2.6 mg/dL [facility] 02/22/2022 3:14 PM EST 02/22/2022 3:19 PM EST [facility] External Provider LAB BLO OD ORDERABLES Final Result Performing Organization Address [facility] Co de Phone Number [facility] [address] [place] [phone] * (ABNORMAL) Basic Metabolic Panel (02/22/2022 3:14 PM EST) [facility] Sodium 136 135 - 145 mmol/L [facility] Potassium 4.4 3.3 - 5.1 mmol/L [facility] Chloride 103 96 - 108 mmol/L [facility] Carbon Dioxide 27 22 - 29 mmol/L [facility] Anion Gap 10(L) 12 - 20 [facility] Urea Nitrogen (BUN) 20(H) 9 - 16 mg/dL [facility] Creatinine, Serum 0.99 0.5 - 1.4 mg/dL [facility] Creatinine Clr Calc Pharmacy 50.6 [facility] Comment:Provided height and weight: 152.4 cm,64.5 kg.eGFR (calculated from the MDRD study equation) and eCrCl(calculated from the Cockcroft-Gault equation) are based ondifferent parameters and may not yield comparable results.If eCrCl result is absurd, please check patient'sheight/weight. Estimated Glomerular Filt Rate 57 [facility] Comment:NOTE: For -Am erican individuals, multiply the result by 1.210.Chronic Kidney Disease: Estimated GFR < 60 mL/min/1.40e6Hcrlze Kidney Disease: Estimated GFR < 15 mL/min/1.73m2 Glucose 343(H) 60 - 115 mg/dL [facility] Calcium 9.3 8.4 - 10.2 mg/dL [facility] 02/22/2022 3:14 PM EST 02/22/2022 3:19 PM EST [facility] External Provider LAB BLO OD ORDERABLES Final Result [facility] [address] [place] [phone] * (ABNORMAL) Hepatic Function Panel (02/22/2022 3:14 PM EST) Bilirubin, Total 0.4 0.0 - 1.0 mg/dL [facility] Bilirubin, Direct <0.2 0.0 - 0.5 mg/dL [facility] Aspartate Amino Transferase 10 5 - 31 U/L [facility] Alanine Aminotransferase 6 0 - 31 U/L [facility] Total Protein 6.1(L) 6.5 - 8.0 g/dL [facility] Albumin Level 3.7 3.5 - 5.0 g/dL [facility] Alkaline Phosphatase 82 39 - 117 U/L [facility] 02/22/2022 3:14 PM EST 02/22/2022 3:19 PM EST us [facility] External Provider LAB BLO OD ORDERABLES Final Result [facility] [address], [place] [phone] * (ABNORMAL) CBC auto differential (02/22/2022 3:14 PM EST) White Blood Count 5.6 4.8 - 10.8 X10*3/uL [facility] Red Blood Count 3.99(L) 4.20 - 5.50 X10*6/uL [facility] Hemoglobin 11.8(L) 12.0 - 16.0 g/dl [facility] Hematocrit 35.1(L) 37.0 - 47.0 % [facility] Mean Corpuscular Volume 88.0 80.0 - 98.0 fL [facility] Mean Corpuscular Hemoglobin 29.6 27.0 - 33.0 pg [facility] Mean Corpuscular HGB Conc 33.6 31.0 - 35.0 g/dl [facility] Red Cell Distribution Width 13.2 11.0 - 16.0 % [facility] Platelet Count 265 160 - 400 X10*3/uL [facility] Mean Platelet Volume 10.0 9.4 - 12.3 fL [facility] Neutrophils Percent Auto 49.1 45 - 73 % [facility] Imm Gran Pct Auto 0.4 0.0 - 0.4 % [facility] Lymphocytes Percent Auto 40.1(H) 20 - 40 % [facility] Monocytes Percent Auto 6.1 2 - 11 % [facility] Eosinophils Percent Auto 3.4 0 - 4 % [facility] Basophils Percent Auto 0.9 0 - 2 % [facility] NRBC Pct Auto 0.0 0.0 - 0.2 /100WBC [facility] Neutrophils Absolute Auto 2.7 2.0 - 8.3 x10*3/uL [facility] Imm Gran Abs Auto 0.02 0.00 - 0.03 X10*3/uL [facility] Lymphocytes Absolute Auto 2.2 1.2 - 4.9 X10*3/uL [facility] Monocytes Absolute Auto 0.3 0.1 - 1.2 X10*3/uL [facility] Eosinophils Absolute Auto 0.2 0.0 - 0.4 X10*3/uL [facility] Basophils Absolute Auto 0.1 0.0 - 0.2 X10*3/uL [facility] NRBC Abs Auto 0.000 0.0 - 0.012 X10*3/uL [facility] 02/22/2022 3:14 PM EST 02/22/2022 3:19 PM EST [facility] External Provider LAB BLO OD ORDERABLES Final Result Performing Organization Address [facility] Co de Phone Number [facility] [address] [place] [phone] * Culture, Urine, Routine (02/22/2022 12:00 AM EST) 02/22/2022 02/22/2022 5:2 3 PM EST Comment:UACC Narrative [facility] - 02/24/2022 11:31 AM EST Urine Culture Report Result Urine Culture 10,000 to 50,000 cfu/ml Urine Culture Mixed bacterial benton characteristic of Urine Culture urogenital contamination. Specimen Source: Urine clean catch [facility] Exter nal Provider LAB MICROBIOLOGY - GENERAL ORDERABLES Final Result Performing Organization Address [facility] de Phone Number [facility] [address] [place] [phone] documented in this encounter Visit Diagnoses Not on filedocumented in this encounter Care Teams Insurance Claims Processor Relationship Specialty Start Date End Date Radha Jamison DO [address] [place] [phone] PCP - General Family Medicine 01/26/12 Abdias Murillo, Camron [address] [place] [phone] Pharmacist Internal Medicine 03/21/22 08/30/23 Nelia Sullivan, KeithD [address] [place] [phone] Pharmacist Internal Medicine 08/31/23 Letty Rinaldi 12/16/24 12/18/24 Dalila Carson, RN [address] [place] [phone] Registered Nurse Family Medicine 12/31/24 Ekta Reynolds 12/31/24 Laurel Monterroso Yacht CaptainMoose Hunter 10/27/22 aSige Aguilar 09/26/23 documented as of this encounter
--- OUTSIDE RECORDS SUMMARY | 2025-01-01 06:43 | XMS_ITS | Encounter Summary ---
Author Organization [employer] Address 75 [facility] 7t [place] [address] Care Team Providers Care Cyber Security Name Role Phone Radha Jamison DO Primary Care Provider Nelia Sullivan PharmD Unavailable [phone] Letty Rinaldi Unavailable Dalila Carson RN Unavailable [phone] Ekta Reynolds Unavailable Encounter Details Date Type Department Care Team (Late st Contact Info) Description 01/30/2024 Telephone [facility] MED & PEDS [address] [place] [address] Radha Jamison DO [address] [place], [place] [phone] Social History Tobacco Use Types Packs/Day Years [...] 10:00 AM EST Medication Management [facility] MEDICINE [address] [place] [address] Nelia Sullivan, PharmD [address] [place] [address] 03/13/2025 9:30 AM EST Office Visit [facility] OPTOMETRY [address] [place] [address] Radha Taylor, OD [address] [place] [address] documented as of this encounter Goals Goal Patient Goal Type Associated Problems Recent Progress Patient-Stated? Author Record your blood pressure once per day Blood Pressure No Yazmin Sullivansa, PharmD Blood Pressure < 140/90 Blood Pressure 154/76(2024 2:07 PM EST) No Puia, Nelia, PharmD Smoking cessation General No PuiaFeliceNelia, PharmD Patient will adhere to medication regimen General No Puia Nelia, PharmD Hemoglobin A1c < 7 Result Component 10.1(12/07/19 12:48 PM EDT) No DellogAbdias cotto, PharmD Record your blood sugar as directed Result Component No AnaiiaFeliceNelia, PharmD Note: Use CGM, ensuring sensor is scanned at least once every 8 hours to capture 24H data. Check BG manually, as directed. documented as of this encounter Visit Diagnoses Not on filedocumented in this encounter Additional Health Concerns Assessment Noted Time PHQ-9 Depression Total Score: 10 024 10:24 AM EST documented as of this encounter Care Teams Cyber Security Relationship Specialty Start Date End Date Radha Jamison DO [address] [place] [address] PCP - General Family Medicine 01/26/12 Nelia Sullivan, PharmD [address] [place] [address] Pharmacist Internal Medicine 08/31/23 Letty Rinaldi 12/16/24 12/18/24 Dalila Carson, JOANN [address] [place] [address] Registered Nurse Family Medicine 12/31/24 Ekta Reynolds 12/31/24 Laurel Monterroso Coin Machine Servicer RepairerCoin Machine Servicer Repairer 10/27/22 Saige Aguilar 09/26/23 documented as of this encounter
--- OUTSIDE RECORDS SUMMARY | 2025-01-01 06:43 | XMS_ITS | Encounter Summary ---
Author Organization [employer] Address 75 [facility] 7t [place] [address] Care Team Providers Care Bit Sharpener Name Role Phone Radha Jamison DO Primary Care Provider Abdias Murillo PharmD Unavailable Unavail able Nelia Sullivan PharmD Unavailable [phone] Letty Rinaldi Unavailable Dalila Carson RN Unavailable [phone] Ekta Reynolds Unavailable Reason for Visit * Reason Comments Med Refill Encounter Details Date Type Department Care Team (Late st Contact Info) Description 01/24/2022 Telephone [facility] CHC MED & PEDS [address] [place] [address] Radha Jamison DO [address] [place] [address] Med Refill Social History Tobacco Use Types [...] Description 01/07/2025 10:00 AM EST Medication Management [facility] MEDICINE [address] [place] [address] Nelia Sullivan PharmD [address] [place] [address] 03/13/2025 9:30 AM EST Office Visit [facility] OPTOMETRY [address] [place] [address] TarRadha bang, OD [address] [place] [address] documented as of this encounter Visit Diagnoses Diagnosis Chronic bilateral low back pain, unspecified whether sciatica present documented in this encounter Care Teams Bit Sharpener Relationship Specialty Start Date End Date Radha Jamison DO [address] [place] [address] PCP - General Family Medicine 01/26/12 Abdias Murillo PharmD [address] [place] [address] Pharmacist Internal Medicine 03/21/22 08/30/23 Nelia Sullivan PharmD [address] [place] [address] Pharmacist Internal Medicine 08/31/23 Letty Rinaldi 12/16/24 12/18/24 Dalila Carson, JOANN [address] [place] [address] [place] [address] Registered Nurse Family Medicine 12/31/24 Ekta Reynolds 12/31/24 Laurel Monterroso Automotive Painter HelperTax Accounting Assistant 10/27/22 Saige Aguilar 09/26/23 documented as of this encounter
--- OUTSIDE RECORDS SUMMARY | 2025-01-01 06:43 | XMS_ITS | Encounter Summary ---
Author Organization [employer] Address 75 [facility] 7t [place] [address] Care Team Providers Care Heel Pricker Name Role Phone Radha Jamison DO Primary Care Provider Abdias Murillo PharmD Unavailable Unavail able Nelia Sullivan PharmD Unavailable Letty Rinaldi Unavailable Dalila Carson RN Unavailable [phone] Ekta Reynolds Unavailable Reason for Visit * Reason Comments Med Refill Encounter Details Date Type Department Care Team (Late st Contact Info) Description 12/21/2022 Refill [facility] MEDICINE [address] [place], [place] [phone] Radha Jamison DO [address] [place] [address] Chronic bilateral low back pain, unspecified whether [...] Description 01/07/2025 10:00 AM EST Medication Management [facility] MEDICINE [address] [place] [address] Nelia Sullivan PharmD [address] [place] [address] 03/13/2025 9:30 AM EST Office Visit [facility] OPTOMETRY [address] [place] [address] Tarka, Radha, OD [address] [place] [address] documented as of this encounter Goals Goal [...] documented as of this encounter Care Teams Heel Pricker Relationship Specialty Start Date End Date Radha Jamison DO [address] [place] [address] PCP - General Family Medicine 01/26/12 bAdias Murillo, PharmD [address] [place] [address] Pharmacist Internal Medicine 03/21/22 08/30/23 Nelia Sullivan PharmD [address] [place] [address] Pharmacist Internal Medicine 08/31/23 Letty Rinaldi 12/16/24 12/18/24 Dalila Carson RN [address] [place] [address] Registered Nurse Family Medicine 12/31/24 Ekta Reynolds 12/31/24 Laurel Monterroso Artist And Repertoire ManagerLay Out Former 10/27/22 Saige Aguilar 09/26/23 documented as of this encounter
--- OUTSIDE RECORDS SUMMARY | 2025-01-01 06:43 | XMS_ITS | Encounter Summary ---
Author Organization [employer] Address 75 [facility] 7t [place] [address] Care Team Providers Care French Folding Machine Operator Name Role Phone Radha Jamison DO Primary Care Provider Abdias Murillo PharmD Unavailable Unavail able Nelia Sullivan PharmD Unavailable Letty Rinaldi Unavailable Dalila Carson RN Unavailable [phone] Ekta Reynolds Unavailable Reason for Visit * Reason Comments Med Refill Encounter Details Date Type Department Care Team (Late st Contact Info) Description 12/22/2022 Refill [facility] MEDICINE 230 [place], [place] [phone] Radha Jamison DO [address] [place] [address] Chronic bilateral low back pain, unspecified whether [...] Medication Management [facility] MEDICINE [address] [place] [address] Nelia Sullivan PharmD [address] [place] [address] 03/13/2025 9:30 AM EST Office Visit [facility] OPTOMETRY [address] [place] [address] Tarka, Radha, OD 267 [place] [address] documented as of this encounter Goals Goal [...] documented as of this encounter Care Teams French Folding Machine Operator Relationship Specialty Start Date End Date Radha Jamison DO [address] [place] [address] PCP - General Family Medicine 01/26/12 Abdias Murillo, PharmD [address] [place] [address] Pharmacist Internal Medicine 03/21/22 08/30/23 Nelia Sullivan PharmD [address] [place] [address] Pharmacist Internal Medicine 08/31/23 Letty Rinaldi 12/16/24 12/18/24 Dalila Carson RN [address] [place] [address] Registered Nurse Family Medicine 12/31/24 Ekta Reynolds 12/31/24 Laurel Monterroso Sewing Machine TesterTraditional Chinese Herbalist 10/27/22 Saige Aguilar 09/26/23 documented as of this encounter
--- OUTSIDE RECORDS SUMMARY | 2025-01-01 06:44 | XMS_ITS | Encounter Summary ---
Author Organization [employer] Address 75 [facility] 7t [place] [address] Care Team Providers Care Production Or Plant Engineer Name Role Phone Radha Jamison DO Primary Care Provider Abdias Murillo PharmD Unavailable Unavail able Nelia Sullivan PharmD Unavailable Letty Rinaldi Unavailable Dalila Carson RN Unavailable [phone] Ekta Reynolds Unavailable Reason for Visit * Reason Comments Med Refill Encounter Details Date Type Department Care Team (Late Contact Info) Description 01/31/2022 Refill [facility] [address] [place] [address] Radha Jamison DO 230 [place] [address] Chronic bilateral low back pain, unspecified whether [...] 10:00 AM EST Medication Management [facility] [address] [place] [address] Nelia Sullivan PharmAdrian 230 [place] [address] 03/13/2025 9:30 AM EST Office Visit [facility] OPTOMETRY [address] [place] [address] Anamerritt Radha, OD [address] [place] [address] documented as of this encounter Visit Diagnoses Diagnosis Chronic bilateral low back pain, unspecified whether sciatica present documented in this encounter Care Teams Production Or Plant Engineer Relationship Specialty Start Date End Date Radha Jamison DO 230 [place] [address] PCP - General Family Medicine 01/26/12 Abdias Murillo, PharmD [address] [place] [address] Pharmacist Internal Medicine 03/21/22 08/30/23 Nelia Sullivan, PharmD 230 [place] [address] Pharmacist Internal Medicine 08/31/23 Letty Rinaldi 12/16/24 12/18/24 Dalila Carson, RN [address] [place] [address] Registered Nurse Family Medicine 12/31/24 Ekta Reynolds 12/31/24 Laurel Monterroso Policy And Planning ManagerSeismograph Observer 10/27/22 Saige Aguilar 09/26/23 documented as of this encounter
--- OUTSIDE RECORDS SUMMARY | 2025-01-01 06:44 | XMS_ITS | Encounter Summary ---
Author Organization [employer] Address 75 [facility] 7t [place] [address] Care Team Providers Care Office Assistant Name Role Phone Radha Jamison DO Primary Care Provider [phone] Abdias Murillo PharmD Unavailable Unavail able Nelia Sullivan PharmD Unavailable Letty Rinaldi Unavailable Dalila Carson RN Unavailable [phone] Ekta Reynolds Unavailable Reason for Visit * Reason Comments Med Refill Encounter Details Date Type Department Care Team (Late st Contact Info) Description 12/20/2022 Refill [facility] MEDICINE [address] [place], [place] [phone] Radha Jamison DO [address] [place] [address] Chronic bilateral low back pain, unspecified whether [...] Description 01/07/2025 10:00 AM EST Medication Management [facility] MEDICINE [address] [place] [address] Nelia Sullivan PharmD [address] [place] [address] 03/13/2025 9:30 AM EST Office Visit [facility] OPTOMETRY [address] [place] [address] Tarka, Radha, OD [address] [place] [address] documented as of this encounter Goals Goal [...] as of this encounter Care Teams Office Assistant Relationship Specialty Start Date End Date Radha Jamison DO [address] [place] [address] PCP - General Family Medicine 01/26/12 Abdias Murillo, PharmD [address] [place] [address] Pharmacist Internal Medicine 03/21/22 08/30/23 Nelia Sullivan PharmD [address] [place] [address] Pharmacist Internal Medicine 08/31/23 Letty Rinaldi 12/16/24 12/18/24 Dalila Carson RN [address] [place] [address] Registered Nurse Family Medicine 12/31/24 Ekta Reynolds 12/31/24 Laurel Monterroso Reconcilement ClerkSteel Rule Inspector 10/27/22 Saige Aguilar 09/26/23 documented as of this encounter
--- OUTSIDE RECORDS SUMMARY | 2025-01-01 06:44 | XMS_ITS | Encounter Summary ---
Author Organization [employer] Address 75 [facility] 7t [place] [address] Care Team Providers Care Electronic Equipment Repairmen Name Role Phone Radha Jamison DO Primary Care Provider Abdias Murillo PharmD Unavailable Unavail able Nelia Sullivan PharmD Unavailable [phone] Letty Rinaldi Unavailable Dalila Carson RN Unavailable [phone] Ekta Reynolds Unavailable Reason for Visit * Reason Onset Date Comments Appointment Request 03/09/2023 Encounter Details Date Type Department Care Team (Late st Contact Info) Description 03/09/2023 Telephone [facility] MEDICINE 230 [place], [place] [phone] Radha Jamison DO 230 [place], [place] [phone] Appointment Request Social History Tobacco Use Types [...] denied any concerns. Please contact pt at [phone] documented in this encounter Plan of Treatment Upcoming Encounters Date Type Department Care Team (Late st Contact Info) Description 01/07/2025 10:00 AM EST Medication Management [facility] MEDICINE 230 [place] [address] Nelia Sullivan, PharmD 230 [place] [address] 03/13/2025 9:30 AM EST Office Visit [facility] OPTOMETRY 267 [place], [place] [phone] Radha Taylor OD 267 [place] [address] documented as of this encounter Goals Goal [...] as of this encounter Care Teams Electronic Equipment Repairmen Relationship Specialty Start Date End Date Radha Jamison DO 230 [place] [address] PCP - General Family Medicine 01/26/12 Abdias Murillo, PharmD 230 [place] [address] Pharmacist Internal Medicine 03/21/22 08/30/23 Nelia Sullivan PharmD 230 [place] [address] Pharmacist Internal Medicine 08/31/23 Letty Rinaldi 12/16/24 12/18/24 Dalila Carson, JOANN [address] [place] [address] Registered Nurse Family Medicine 12/31/24 Ekta Reynolds 12/31/24 Laurel Monterroso Tab Cutting Machine OperatorIrrigation Manager 10/27/22 Saige Aguilar 09/26/23 documented as of this encounter
--- OUTSIDE RECORDS SUMMARY | 2025-01-01 06:44 | XMS_ITS | Encounter Summary ---
Author Organization [employer] Address 75 [facility] 7t [place] [address] Care Team Providers Care Software Release Engineer Name Role Phone Radha Jamison DO Primary Care Provider Nelia Sullivan PharmD Unavailable Letty Rinaldi Unavailable Dalila Carson RN Unavailable [phone] Ekta Reynolds Unavailable Reason for Visit * Reason Comments Med Refill Encounter Details Date Type Department Care Team (Late st Contact Info) Description 10/30/2023 Refill [facility] MEDICINE 230 [place], [place] [phone] Radha Jamison DO 230 [place], [place] [phone] Chronic bilateral low back pain, unspecified whether [...] Description 01/07/2025 10:00 AM EST Medication Management [facility] MEDICINE 230 [place] [address] Nelia Sullivan, PharmD 230 [place] [address] 03/13/2025 9:30 AM EST Office Visit [facility] OPTOMETRY [address] [place] [address] Radha Taylor, OD [address] [place] [address] documented as of this encounter Goals Goal Patient Goal Type Associated Problems Recent Progress Patient-Stated? Author Record your blood pressure once per day Blood Pressure No Neila Sullivan, PharmD Blood Pressure < 140/90 Blood [...] documented as of this encounter Care Teams Software Release Engineer Relationship Specialty Start Date End Date Radha Jamison DO [address] [place] [address] PCP - General Family Medicine 01/26/12 Nelia Sullivan, PharmD 230 [place] [address] Pharmacist Internal Medicine 08/31/23 Letty Rinaldi 12/16/24 12/18/24 Dalila Carson, JOANN [address] [place] [address] Registered Nurse Family Medicine 12/31/24 Ekta Reynolds 12/31/24 Laurel Monterroso Ela TeacherCeramic Capacitor Processor 10/27/22 Saige Aguilar 09/26/23 documented as of this encounter
--- OUTSIDE RECORDS SUMMARY | 2025-01-01 06:45 | XMS_ITS | Encounter Summary ---
Author Organization [employer] Address 75 [facility] 7t [place] [address] Care Team Providers Care Pulp Machine Operator Name Role Phone Radha Jamison DO Primary Care Provider [phone] Abdias Murillo PharmD Unavailable Unavail able Nelia Sullivan PharmD Unavailable Letty Rinaldi Unavailable Dalila Carson RN Unavailable Ekta eRynolds Unavailable Reason for Visit * Reason Comments Med Refill Encounter Details Date Type Department Care Team (Late st Contact Info) Description 02/15/2023 Refill [facility] MEDICINE 230 [place], [place] [phone] Radha Jamison DO 230 [place], [place] [phone] Chronic bilateral low back pain, unspecified whether [...] Description 01/07/2025 10:00 AM EST Medication Management [facility] MEDICINE [address] [place] [address] Nelia Sullivan PharmD [address] [place] [address] 03/13/2025 9:30 AM EST Office Visit [facility] OPTOMETRY [address] [place] [address] Tarka, Radha, OD [address] [place] [address] documented as of this encounter Goals Goal [...] documented as of this encounter Care Teams Pulp Machine Operator Relationship Specialty Start Date End Date Radha Jamison DO [address] [place] [address] PCP - General Family Medicine 01/26/12 Abdias Murillo, PharmD [address] [place] [address] Pharmacist Internal Medicine 03/21/22 08/30/23 Nelia Sullivan PharmD [address] [place] [address] Pharmacist Internal Medicine 08/31/23 Letty Rinaldi 12/16/24 12/18/24 Dalila Carson RN [address] [place] [address] Registered Nurse Family Medicine 12/31/24 Ekta Reynolds 12/31/24 Laurel Monterroso Tie Tape Machine OperatorCorrosion Control Fitter 10/27/22 Saige Aguilar 09/26/23 documented as of this encounter
--- OUTSIDE RECORDS SUMMARY | 2025-01-01 06:45 | XMS_ITS | Encounter Summary ---
Author Organization [employer] Address 75 [facility] 7t [place] [address] Care Team Providers Care Machining Department Supervisor Name Role Phone Radha Jamison DO Primary Care Provider Abdias Murillo PharmD Unavailable Unavail able Nelia Sullivan PharmD Unavailable Letty Rinaldi Unavailable Dalila Carson RN Unavailable [phone] Ekta Reynolds Unavailable Reason for Visit * Reason Comments Med Refill Encounter Details Date Type Department Care Team (Late st Contact Info) Description 03/14/2023 Refill [facility] MEDICINE 230 [place], [place] [phone] Radha Jamison DO 230 [place], [place] [phone] Chronic bilateral low back pain, unspecified whether [...] 10:00 AM EST Medication Management [facility] MEDICINE [address] [place] [address] Nelia Sullivan PharmD [address] [place] [address] 03/13/2025 9:30 AM EST Office Visit [facility] OPTOMETRY [address] [place] [address] Tarka, Radha, OD [address] [place] [address] documented as of this encounter Goals Goal [...] documented as of this encounter Care Teams Machining Department Supervisor Relationship Specialty Start Date End Date Radha Jamison DO [address] [place] [address] PCP - General Family Medicine 01/26/12 Abdias Murillo, PharmD [address] [place] [address] Pharmacist Internal Medicine 03/21/22 08/30/23 Nelia Sullivan PharmD [address] [place] [address] Pharmacist Internal Medicine 08/31/23 Letty Rinaldi 12/16/24 12/18/24 Dalila Carson RN [address] [place] [address] Registered Nurse Family Medicine 12/31/24 Ekta Reynolds 12/31/24 Laurel Monterroso Paper And Prints RestorerOpen Claims Representative 10/27/22 Saige Aguilar 09/26/23 documented as of this encounter
--- OUTSIDE RECORDS SUMMARY | 2025-01-01 06:45 | XMS_ITS | Encounter Summary ---
Author Organization [employer] Address 75 [facility] 7t [place] [address] Care Team Providers Care Network Coordinator Name Role Phone Radha Jamison DO Primary Care Provider [phone] Abdias Murillo PharmD Unavailable Unavail able Nelia Sullivan PharmD Unavailable Letty Rinaldi Unavailable Dalila Carson RN Unavailable [phone] Ekta Reynolds Unavailable Reason for Visit * Reason Comments Med Refill Encounter Details Date Type Department Care Team (Late st Contact Info) Description 02/14/2023 Refill [facility] MEDICINE 230 [place], [place] [phone] Radha Jamison DO [address] [place], [place] [phone] Chronic bilateral low back pain, unspecified whether [...] Description 01/07/2025 10:00 AM EST Medication Management [facility] MEDICINE [address] [place] [address] Nelia Sullivan PharmD [address] [place] [address] 03/13/2025 9:30 AM EST Office Visit [facility] OPTOMETRY [address] [place] [address] Tarka, Radha, OD [address] [place] [address] documented as of this encounter Goals Goal [...] as of this encounter Care Teams Network Coordinator Relationship Specialty Start Date End Date Radha Jamison DO [address] [place] [address] PCP - General Family Medicine 01/26/12 Abdias Murillo, PharmD [address] [place] [address] Pharmacist Internal Medicine 03/21/22 08/30/23 Nelia Sullivan PharmD [address] [place] [address] Pharmacist Internal Medicine 08/31/23 Letty Rinaldi 12/16/24 12/18/24 Dalila Carson RN [address] [place] [address] Registered Nurse Family Medicine 12/31/24 Ekta Reynolds 12/31/24 Laurel Monterroso Assistant Professor Of DramaRegional Company Hazmat Tanker Driver 10/27/22 Siage Aguilar 09/26/23 documented as of this encounter
--- OUTSIDE RECORDS SUMMARY | 2025-01-01 06:46 | XMS_ITS | Encounter Summary ---
Author Organization [employer] Address 75 [facility] 7t [place] [address] Care Team Providers Care Fire Protection Designer Name Role Phone ShaheenRadha Primary Care Provider Abdias Murillo PharmD Unavailable Unavail able Nelia Sullivan PharmD Unavailable [phone] Letty Rinaldi Unavailable Dalila Carson RN Unavailable [phone] Ekta Reynolds Unavailable Reason for Visit * Reason Onset Date Comments Med Refill Appointment 05/15/2022 Re: her appt for today as [id number] @ 10:15 am. & No active phone # at this time. Encounter Details Date Type Department Care Team (Late st Contact Info) Description 05/15/2022 Refill [facility] MEDICINE [address] [place], [place] [phone] Abdias Murillo, PharmD Type 2 diabetes mellitus with other specified complication, with long-term current use of insulin ([facility]) Social History Tobacco Use [...] Recorded In the last 10 days, have jd lara been in contact with someone who was confirmed or suspected to have Coronavirus/COVID-19? No / Unsure 05/04/2022 10:51 AM EDT documented as of this encounter Miscellaneous Notes * Telephone Encounter - Monica Layne - 05/16/2022 9:46 AM EDT T/C placed to pt regarding her appt for today as [id number] @ 10:15 am. And her phone # is not active at this time. documented in this encounter Plan of Treatment Upcoming Encounters Date Type Department Care Team (Late st Contact Info) Description 01/07/2025 10:00 AM EST Medication Management [facility] MEDICINE [address] [place] [address] Nelia Sullivan PharmD [address] [place] [address] 03/13/2025 9:30 AM EST Office Visit [facility] OPTOMETRY [address] [place] [address] Radha Taylor, OD [address] [place] [address] documented as of this encounter Goals Goal [...] documented as of this encounter Care Teams Fire Protection Designer Relationship Specialty Start Date End Date Radha Jamison DO [address] [place] [address] PCP - General Family Medicine 01/26/12 Abdias Murillo, KeithD [address] [place] [address] Pharmacist Internal Medicine 03/21/22 08/30/23 Nelia Sullivan, KeithD [address] [place] [address] Pharmacist Internal Medicine 08/31/23 Letty Rinaldi 12/16/24 12/18/24 Dalila Carson, JOANN [address] [place] [address] Registered Nurse Family Medicine 12/31/24 Ekta Reynolds 12/31/24 Laurel Monterroso Research And Evaluation AnalystHammer Shop Supervisor 10/27/22 Saige Aguilar 09/26/23 documented as of this encounter
--- OUTSIDE RECORDS SUMMARY | 2025-01-01 06:46 | XMS_ITS | Encounter Summary ---
Author Organization [employer] Address 75 [facility] 7t [place] [address] Care Team Providers Care Editor Producer Name Role Phone Radha Jamison DO Primary Care Provider Abdias Murillo PharmD Unavailable Unavail able Nelia Sullivan PharmD Unavailable Letty Rinaldi Unavailable Dalila Carson RN Unavailable [phone] Ekta Reynolds Unavailable Reason for Visit * Reason Comments Med Refill Encounter Details Date Type Department Care Team (Late st Contact Info) Description 07/20/2022 Refill [facility] [address] [place], [place] [phone] Radha Jamison DO [address] [place] [address] Hypertension, unspecified type Social History Tobacco Use [...] Management [facility] [address] [place] [address] Nelia Sullivan PharmD [address] [place] [address] 03/13/2025 9:30 AM EST Office Visit [facility] OPTOMETRY [address] [place] [address] Radha Taylor, OD [address] [place] [address] documented as of this encounter Goals Goal [...] documented as of this encounter Care Teams Editor Producer Relationship Specialty Start Date End Date Radha Jamison DO [address] [place] [phone] PCP - General Family Medicine 01/26/12 Abdias Murillo, PharmD [address] [place] [address] Pharmacist Internal Medicine 03/21/22 08/30/23 Nelia Sullivan, PharmD [address] [place] [address] Pharmacist Internal Medicine 08/31/23 Letty Rinaldi 12/16/24 12/18/24 Dalila Carson RN [address] [place] [address] Registered Nurse Family Medicine 12/31/24 Ekta Reynolds 12/31/24 Laurel Monterroso Propulsion Generator RepairerAgent Telegrapher 10/27/22 Saige Aguilar 09/26/23 documented as of this encounter
--- OUTSIDE RECORDS SUMMARY | 2025-01-01 06:46 | XMS_ITS | Encounter Summary ---
Author Organization [employer] Address 75 [facility] 7t [place] [address] Care Team Providers Care Marine Pipefitter Helper Name Role Phone Radha Jamison DO Primary Care Provider Abdias Murillo PharmD Unavailable Unavail able Nelia Sullivan PharmD Unavailable Letty Rinaldi Unavailable Dalila Carson RN Unavailable [phone] Ekta Reynolds Unavailable Reason for Visit * Reason Comments Med Refill Encounter Details Date Type Department Care Team (Late st Contact Info) Description 06/10/2022 Refill [facility] [address] [place], [place] [phone] Radha Jamison DO [address] [place], [place] [phone] Chronic bilateral low back pain, unspecified whether [...] Description 01/07/2025 10:00 AM EST Medication Management [facility] [address] [place] [address] Nelia Sullivan PharmD [address] [place] [address] 03/13/2025 9:30 AM EST Office Visit [facility] [address] [place] [address] Radha Taylor, OD 267 [place] [address] documented as of this encounter Goals Goal [...] documented as of this encounter Care Teams Marine Pipefitter Helper Relationship Specialty Start Date End Date Radha Jamison DO [address] [place] [address] PCP - General Family Medicine 01/26/12 Abdias Murillo, PharmD [address] [place] [address] Pharmacist Internal Medicine 03/21/22 08/30/23 Nelia Sullivan PharmD [address] [place] [address] Pharmacist Internal Medicine 08/31/23 Letty Rinaldi 12/16/24 12/18/24 Dalila Carson RN [address] [place] [address] RocioMARA [address] Registered Nurse Family Medicine 12/31/24 Ekta Reynolds 12/31/24 Laurel Monterroso Drama TeacherCellular Biologist 10/27/22 Saige Aguilar 09/26/23 documented as of this encounter
--- OUTSIDE RECORDS SUMMARY | 2025-01-01 06:50 | XMS_ITS | Encounter Summary ---
Author Organization [employer] Address 75 [facility] 7t [place] [address] Care Team Providers Care Desktop Publisher Name Role Phone DenniseRadha broussard Primary Care Provider [phone] Nelia Sullivan PharmD Unavailable [phone] Encounter Details Date Type Department Care Team (Latest Contact Info) Description 12/27/2024 Travel Social History Tobacco Use Types Packs/Day [...] 01/07/2025 10:00 AM EST Medication Management [facility] [address] [place] [address] Nelia Sullivan, PharmD 230 [place] [address] 03/13/2025 9:30 AM EST Office Visit [facility] OPT[facility] [address] [place] [address] Tarka, Radha, OD 267 [place] [address] documented as of this encounter Goals Goal Patient Goal Type Associated Problems Recent Progress Patient-Stated? Author Record your blood pressure once per day Blood Pressure No AnaiiaFeliceNelia, PharmD Blood Pressure < 140/90 Blood Pressure 154/76(2024 2:07 PM EST) No Puia Nelia, PharmD Smoking cessation General No Puia Nelia, PharmD Patient will adhere to medication regimen General No Puia, Nelia, PharmD Hemoglobin A1c < 7 Result Component 10.1(12/07/19 12:48 PM EDT) No Abdias Murillo PharmAdrian Record [...] documented as of this encounter Care Teams Desktop Publisher Relationship Specialty Start Date End Date Radha Jamison DO 230 [place] [address] PCP - General Family Medicine 01/26/12 Nelia Sullivan PharmD [address] [place] [address] Pharmacist Internal Medicine 08/31/23 Laurel Monterroso Ditching Machine EngineerToy Painter 10/27/22 Saige Aguilar 09/26/23 documented as of this encounter
--- OUTSIDE RECORDS SUMMARY | 2025-01-01 06:50 | XMS_ITS | Encounter Summary ---
Author Organization [employer] Address 75 [facility] 7t [place] [address] Care Team Providers Care Mold Holder Name Role Phone Radha Jamison DO Primary Care Provider Nelia Sullivan PharmD Unavailable [phone] Dalila Carson RN Unavailable [phone] Ekta Reynolds Unavailable Reason for Visit * Reason Onset Date Comments Appointment Request 12/30/2024 Encounter Details Date Type Department Care Team ([facility] st Contact Info) Description 12/30/2024 Telephone [facility] [address] [place], [place] [phone] Radha Jamison DO 230 [place], [place] [phone] Appointment Request Social History Tobacco Use Types [...] encounter Miscellaneous Notes * Telephone Encounter - Lorenza Palencia - 12/30/2024 3:03 PM EST Tc from pt requesting to schedule apt so she is able to get Oxycodone prescribed Contact pt at [phone] (citizen of [place]) documented in this encounter Plan of Treatment Upcoming Encounters Date Type Department Care Team ([facility] st Contact Info) Description 01/07/2025 10:00 AM EST Medication Management [facility] MEDICINE [address] [place], [place] [phone] Nelia Sullivan, PharmD [address] [place] [address] 03/13/2025 9:30 AM EST Office Visit [facility] OPTOMET[facility] [address] [place] [address] Radha Taylor, OD [address] [place] [address] documented as of this encounter Goals Goal [...] blood sugar as directed Result Component No Anaiia Nelia, PharmD Note: Use CGM, ensuring sensor [...] has chronic kidney disease No Lorenza Kelly documented as of this encounter Visit Diagnoses [...] 12/30/2024 Patient has chronic kidney disease 12/30/2024 Assessment Noted Time PHQ-9 Depression Total Score: 16 025 2:10 PM EDT documented as of this encounter Care Teams Mold Holder Relationship Specialty Start Date End Date Radha Jamison DO [address] [place] [address] PCP - General Family Medicine 01/26/12 Nelia Sullivan PharmD [address] [place] [address] Pharmacist Internal Medicine 08/31/23 Dalila Carson, JOANN [address] [place] [address] Registered Nurse Family Medicine 12/31/24 Ekta Reynolds 12/31/24 Laurel Monterroso [employer] Media SpecialistEnterprise Architect Manager 10/27/22 Saige [facility] 09/26/23 documented as of this encounter
--- OUTSIDE RECORDS SUMMARY | 2025-01-01 06:50 | XMS_ITS | Encounter Summary ---
Author Organization [employer] Address 75 [facility] 7t [place] [address] Care Team Providers Care Pulp Refiner Operator Name Role Phone Radha Jamison DO Primary Care Provider Nelia Sullivan PharmD Unavailable Dalila Carson RN Unavailable [phone] Ekta Reynolds Unavailable Encounter Details Date Type Department Care Team (Late st Contact Info) Description 12/31/2024 Patient Outreach [facility] MED[facility] 230 [place] [address] Radha Jamison DO 230 [place], [place] [phone] Social History Tobacco Use Types Packs/Day Years [...] Description 01/07/2025 10:00 AM EST Medication Management [facility] 230 [place] [address] Nelia Sullivan PharmD 230 [place] [address] 03/13/2025 9:30 AM EST Office Visit [facility] OPTOMET[facility] [address] [place] [address] Radha Taylor, OD [address] [place] [address] documented as of this encounter Goals Goal Patient Goal Type Associated Problems Recent Progress Patient-Stated? Author Record your blood pressure once per day Blood Pressure No Nelia Sullivan, PharmD Blood Pressure < 140/90 Blood Pressure 154/76(2024 2:07 PM EST) No Nelia Sullivan PharmD Smoking cessation General No Nelia Sullivan, PharmAdrian Patient will adhere to medication regimen [...] has chronic kidney disease No Ekta Reynolds documented as of this encounter Visit Diagnoses [...] 12/31/2024 Patient has chronic kidney disease 12/31/2024 Assessment Noted Time PHQ-9 Depression Total Score: 16 025 2:10 PM EDT documented as of this encounter Care Teams Pulp Refiner Operator Relationship Specialty Start Date End Date Radha Jamison DO [address] [place] [address] PCP - General Family Medicine 01/26/12 Nelia Sullivan, KeithD 230 [place] [address] Pharmacist Internal Medicine 08/31/23 Dalila Carson, RN [address] [place] [address] Registered Nurse Family Medicine 12/31/24 Ekta Reynolds 12/31/24 Laurel Monterroso Block PilerNuclear Physician 10/27/22 Saige Aguilar 09/26/23 documented as of this encounter
--- OUTSIDE RECORDS SUMMARY | 2025-01-01 06:51 | XMS_ITS | Encounter Summary ---
Author Organization [employer] Address [address] [facility] 7t [place] [address] Care Team Providers Care Houseperson Name Role Phone Radha Jamison DO Primary Care Provider Nelia Sullivan PharmD Unavailable [phone] Dalila Carson RN Unavailable [phone] Ekta Reynolds Unavailable Reason for Visit * Reason Comments Care Coordination CHW Chart Review Encounter Details Date Type Department Care Team (Latest Contact Info) Description 12/31/2024 Patient Outreach [facility] MED[facility] 230 [place] [address] Radha Jamison DO 230 [place] [address] Care Coordination (CHW Chart Review) Social History Tobacco Use Types Packs/Day Years [...] as of this encounter Progress Notes * Ekta Reynolds - 12/31/2024 8:56 AM EST CM/C3 GALEN Reynolds Chart Review SEANW Ekta Reynolds reviewed chart review completed by KAPIL Carson RN KAPIL Carson RN, performed chart review, in anticipation of initial assessment with patient, as patient has stratified for C3 Adult Complex Care through the provider referral. 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 stable angina pectoris 10/03/2024 Left hip pain 07/26/2024 Left leg swelling 07/26/2024 Bilateral carotid artery stenosis 07/24/2024 Osteomyelitis (HCC) 07/24/2024 NSTEMI (non-ST elevated myocardial infarction) (HCC) 07/24/2024 Weight loss, abnormal 07/24/2024 ST elevation (STEMI) myocardial infarction (HCC) 07/24/2024 Chronic bilateral low back pain 05/24/2024 Fibromuscular dysplasia of renal artery 11/02/2023 Nonadherence to medication 09/28/2023 Proteinuria 09/28/2023 Vitamin D deficiency 09/28/2023 Carotid artery stenosis 05/11/2023 Healthcare maintenance 05/11/2023 Chronic constipation 11/08/2022 Multiple pulmonary nodules 05/04/2022 Spinal stenosis, lumbar 05/04/2022 Chronic allergic rhinitis 05/04/2022 Chronic gastroesophageal reflux disease 05/04/2022 Diabetic retinopathy (HCC) 05/04/2022 Peripheral arterial disease 01/24/2022 Status post femoral-popliteal bypass surgery 01/24/2022 Presbyopia 09/29/2015 Coronary arteriosclerosis 05/14/2015 Chronic migraine 05/14/2015 Anemia 12/04/2014 Aortic stenosis 12/04/2014 Resistant hypertension 12/04/2014 Female stress incontinence 12/04/2014 Hyperlipidemia 12/04/2014 Mild persistent asthma 12/04/2014 Mood disorder (CMS/HCC) 12/04/2014 Obstructive sleep apnea 12/04/2014 Tobacco dependence 12/04/2014 Type 2 diabetes mellitus (HCC) 12/04/2014 Specialists include [facility], Hematology/ Oncology, Pain Medicine, Endocrinology, [facility] Nephrology, [facility] Vascular Surgery, [facility] Optometry, and [facility] Cardiology. ED visits within the last 12 months include [facility] ED 12/17/24, [facility] ED 12/15/24-12/16/24, [facility] 10/15/24-10/17/24, [facility] 08/27/24-08/28/24, and [facility] 06/07/24. Last appointment in PCP office on 12/27/24. Next appointment scheduled for 01/07/25 at 10:00am with Pharm[facility]. documented in this encounter Plan of Treatment Upcoming Encounters Date Type Department Care Team (Late st Contact Info) Description 01/07/2025 10:00 AM EST Medication Management [facility] MEDICINE [address] [place] [address] Nleia Sullivan, PharmD 230 [place] [address] 03/13/2025 9:30 AM EST Office Visit [facility] OPTOMETRY [address] [place] [address] Radha Taylor, OD [address] [place] [address] documented as of this encounter Goals Goal Patient Goal Type Associated Problems Recent Progress Patient-Stated? Author Record your blood pressure once per day Blood Pressure No Nelia Sullivan, PharmD Blood Pressure < 140/90 Blood Pressure 154/76(2024 2:07 PM EST) No Yazmin Sullivansa, PharmD Smoking cessation General No AnaiiaFeliceNelia, PharmD Patient will adhere to medication regimen General No Nelia Sullivan PharmAdrian Hemoglobin A1c < 7 Result Component 10.1(12/07/19 12:48 PM EDT) No Abdias Murillo PharmD Record your blood sugar as directed Result Component No Nelia Sullivan PharmAdrian Note: Use CGM, ensuring sensor is scanned [...] Plan Patient has diabetic eye disease No Bryan, Audelia, RN Patient has diabetic eye disease Care [...] documented as of this encounter Care Teams Houseperson Relationship Specialty Start Date End Date Radha Jamison DO 230 [place], [place] [phone] PCP - General Family Medicine 01/26/12 Nelia Sullivan PharmD [address] [place] [address] Pharmacist Internal Medicine 08/31/23 Dalila Carson RN [address] [place] [address] Registered Nurse Family Medicine 12/31/24 Ekta Reynolds 12/31/24 Laurel Monterroso HydrometeorologistStock Letterer 10/27/22 Saige Aguilar 09/26/23 documented as of this encounter
--- OUTSIDE RECORDS SUMMARY | 2025-01-01 06:51 | XMS_ITS | Encounter Summary ---
Author Organization [employer] Address [address] [facility] 7t [place] [address] Care Team Providers Care Warehouse Associate Name Role Phone Radha Jamison DO Primary Care Provider Nelia Sullivan PharmD Unavailable [phone] Dalila Carson RN Unavailable [phone] Ekta Reynolds Unavailable Reason for Visit * Reason Comments Care Management C3- chart review Encounter Details Date Type Department Care Team (Late st Contact Info) Description 12/31/2024 Patient Outreach [facility] MEDICINE [address] [place] [address] Radha Jamison DO [address] [place] [address] Care Management ([facility]- chart review) Social History Tobacco Use Types Packs/Day Years [...] as of this encounter Progress Notes * Dalila Carson RN - 12/31/2024 8:17 AM EST KAPIL Carson RN, performed chart review, in anticipation of initial assessment with patient, as patient has stratified for Adult Complex Care through the provider referral. History significant for Patient Active Problem List Diagnosis Date Noted Splenic infarct 10/03/2024 Coronary artery disease of grayling artery of grayling heart with stable angina pectoris 10/03/2024 Left [...] 12/04/2014 Mild persistent asthma 12/04/2014 Mood disorder ([facility]/HCC) 12/04/2014 Obstructive sleep apnea 12/04/2014 Tobacco dependence 12/04/2014 Type 2 diabetes mellitus ([facility]) 12/04/2014 Specialists include [facility], Hematology/ Oncology, Pain Medicine, Endocrinology, [facility], [facility] Vascular Surgery, [facility] Optometry, and [facility] Cardiology. ED visits within the last 12 months include [facility] ED 12/17/24, [facility] ED 12/15/24-12/16/24, [facility] 10/15/24-10/17/24, [facility] 08/27/24-08/28/24, and [facility] 06/07/24. Last appointment in PCP office on 12/27/24. Next appointment scheduled for 01/07/25 at 10:00am with Pharm[facility]. documented in this encounter Plan of Treatment Upcoming Encounters Date Type Department Care Team (Late st Contact Info) Description 01/07/2025 10:00 AM EST Medication Management [facility] [address] [place] [address] Nelia Sullivan, PharmD [address] [place] [address] 03/13/2025 9:30 AM EST Office Visit [facility] OPTOMETRY [address] [place] [address] Radha Taylor, OD [address] [place] [address] documented as of this encounter Goals Goal [...] as of this encounter Care Teams Warehouse Associate Relationship Specialty Start Date End Date Radha Jamison DO [address] [place], [place] [phone] PCP - General Family Medicine 01/26/12 Nelia Sullivan PharmD [address] [place], [place] [phone] Pharmacist Internal Medicine 08/31/23 Dalila Carson, JOANN [address] [place] [address] Registered Nurse Family Medicine 12/31/24 Ekta Reynolds 12/31/24 Laurel Monterroso Dragsaw OperatorCut To Length Operator 10/27/22 Saige Aguilar 09/26/23 documented as of this encounter
--- OUTSIDE RECORDS SUMMARY | 2025-01-16 19:00 | XMS_ITS | Clinical Summary ---
Author Organization Unknown Care Team Providers Care Health Professional Name Role Phone ADILIA FELIPE, VIOLETA Unavailable Unavailable SURJIT DAVID, ERIC Unavailable Unavailable Payers Payer Name Policy Type Policy Number Effective Date Expira tion Date MEDICAID [facility] [id number] Problems Condition Name Condition Details Condition Category Status Onset Date Resolution Date Last Treatment Date Treating Clinician Comments ESSENTIAL (PRIMARY) HYPERTENSION Active 09-21 00:00: 00 ATHSCL HEART DISEASE OF [place] CORONARY ARTERY W/O ANG PCTRS Active 09-21 [...] CIGARETTES, UNCOMPLICATE D Active 09-21 00:00: 00 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) USE OF 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 Active 09-21 00:00: [...] release 24 hr 805 00:00: 00 Yes [id number] 60 mg AT BEDTIME 60 mg AT BEDTIME (route: oral) Med Classific ation: Cardiovas cular Therapy Agents oxycodone 5 mg tablet 09-04 00:00: 00 11-19 23:59 :00 No [id number] Unavailable 5 mg FIVE TIMES DAILY NEEDED 5 mg FIVE TIMES DAILY NEEDED (route: oral) Med Classific ation: Analgesic , Anti-infl ammatory or Antipyret ic gabapentin 600 mg tablet 09-03 00:00: 00 09-25 23:59 :00 No [id number] 600 mg 2 TIMES DAILY 600 mg 2 TIMES DAILY (route: oral) Med Classific ation: Central Nervous System Agents nicotine 21 mg/24 hr daily transdermal patch 08-30 00:00: 00 Yes [id number] Unavailable 21 mg DAILY 21 mg DAILY (route: transderma l) Med Classific ation: Chemical Dependenc y, Agents to Treat Alcohol Prep Pads 08-29 00:00: 00 05-18 23:59 :00 No [id number] 1 pads, medicat ed DIRECTED THREE TIMES DAILY AND NEEDED 1 pads, medicated DIRECTED THREE TIMES DAILY AND NEEDED (route: topical) Med Classific ation: Antisepti cs and Disinfect ants amitriptyli ne 50 mg tablet 08-29 00:00: 00 09-22 23:59 :00 No [id number] Unavailable 50 mg AT BEDTIME 50 mg AT BEDTIME (route: oral) Med Classific ation: Central Nervous System Agents Asmanex HFA 100 mcg/actuati on aerosol inhaler 08-29 00:00: 00 Yes [id number] 2 puff TWICE DAILY 2 puff TWICE DAILY (route: inhalation ) Med Classific ation: Respirato ry Therapy Agents atorvastati n 80 mg tablet 08-29 00:00: 00 Yes [id number] Unavailable 80 mg BEDTIME 80 mg BEDTIME (route: oral) Med Classific ation: Cardiovas cular Therapy Agents carvedilol 25 mg tablet 08-29 00:00: 00 Yes [id number] Unavailable 25 mg TWICE DAILY 25 mg TWICE DAILY (route: oral) Med Classific ation: Cardiovas cular Therapy Agents clopidogrel 75 mg tablet 08-29 00:00: 00 Yes [id number] 75 mg EVERY AM 75 mg EVERY AM (route: oral) Med Classific ation: Hematolog ical Agents docusate sodium 100 mg capsule 08-29 00:00: 00 09-25 23:59 :00 No [id number] Unavailable 100 mg TWICE DAILY 100 mg TWICE DAILY (route: oral) Med Classific ation: Gastroint estinal Therapy Agents escitalopra m 20 mg tablet 08-29 00:00: 00 Yes [id number] Unavailable 20 mg EVERY PM 20 mg EVERY PM (route: oral) Med Classific ation: Central Nervous System Agents FeroSul 325 mg (65 mg iron) tablet 08-29 00:00: 00 09-25 23:59 :00 No [id number] Unavailable 325 mg TWICE DAILY IN THE MORNING AND AT BEDTIME 325 mg TWICE DAILY IN THE MORNING AND AT BEDTIME (route: oral) Med Classific ation: Electroly te Balance-N utritiona l Products gabapentin 800 mg tablet 08-29 00:00: 00 09-22 23:59 :00 No [id number] 800 mg 2 TIMES DAILY 800 mg 2 TIMES DAILY (route: oral) Med Classific ation: Central Nervous System Agents hydralazine 25 mg tablet 08-29 00:00: 00 09-22 23:59 :00 No [id number] Unavailable 25 mg 3 TIMES DAILY 25 mg 3 TIMES DAILY (route: oral) Med Classific ation: Cardiovas cular Therapy Agents hydralazine 50 mg tablet 08-29 00:00: 00 09-25 23:59 :00 No [id number] Unavailable 50 mg THREE TIMES DAILY IN THE MORNING AT 50 mg THREE TIMES DAILY IN THE MORNING AT (route: oral) Med Classific ation: Cardiovas cular Therapy Agents mirtazapine 45 mg tablet 08-29 00:00: 00 Yes [id number] Unavailable 45 mg AT BEDTIME 45 mg AT BEDTIME (route: oral) Med Classific ation: Central Nervous System Agents omeprazole 20 mg capsule,del ayed release 08-29 00:00: 00 Yes [id number] 20 mg TWICE DAILY 20 mg TWICE DAILY (route: oral) Med Classific ation: Gastroint estinal Therapy Agents lisinopril 40 mg tablet 09-25 00:00: 00 Yes [id number] 40 mg DAILY 40 mg DAILY (route: oral) Med Classific ation: Cardiovas cular Therapy Agents metformin 1,000 mg tablet 09-25 00:00: 00 09-22 23:59 :00 No [id number] 1000 mg 2 TIMES DAILY 1000 mg 2 TIMES DAILY (route: oral) Med Classific ation: Endocrine multivitami n tablet 09-25 00:00: 00 Yes [id number] 1 tablet DAILY 1 tablet DAILY (route: oral) Med Classific ation: Electroly te Balance-N utritiona l Products nifedipine ER 60 mg tablet,exte nded release 09-25 00:00: 00 Yes [id number] 60 mg EVERY PM 60 mg EVERY PM (route: oral) Med Classific ation: Cardiovas cular Therapy Agents pioglitazon e 15 mg tablet 09-25 00:00: 00 Yes [id number] 15 mg DAILY 15 mg DAILY (route: oral) Med Classific ation: Endocrine Tresiba FlexTouch U-100 insulin 100 unit/mL (3 mL) subcutaneou s pen 09-25 00:00: 00 Yes [id number] 10 In unit DAILY 10 In unit DAILY (route: subcutaneo ) Med Classific ation: Endocrine aspirin 81 mg tablet 09-22 00:00: 00 Yes [id number] 1 tablet DAILY 1 tablet DAILY (route: oral) Med Classific ation: Hematolog ical Agents docusate sodium 100 mg capsule 09-22 00:00: 00 Yes [id number] 1 capsule 2 TIMES DAILY 1 capsule 2 TIMES DAILY (route: oral) Med Classific ation: Gastroint estinal Therapy Agents ferrous sulfate 325 mg (65 mg iron) tablet 09-22 00:00: 00 Yes [id number] 1 tablet 2 TIMES DAILY 1 tablet 2 TIMES DAILY (route: oral) Med Classific ation: Electroly te Balance-N utritiona l Products isosorbide mononitrate ER 30 mg tablet,exte nded release 24 hr 09-22 00:00: 00 Yes [id number] 1 tablet DAILY 1 tablet DAILY (route: oral) Med Classific ation: Cardiovas cular Therapy Agents Vital Signs Vital Name Observation Time Observation Value Commen ts Temperature 2024-12-31 11:48:00.000 97.8 [degF] Temperature 2024-12-30 11:37:00.000 97.6 [degF] Temperature 2024-12-29 11:10:00.000 97.5 [degF] Temperature 2024-12-28 11:28:00.000 97.6 [degF] Temperature 2024-12-27 12:12:00.000 97.6 [degF] Temperature 2024-12-26 11:39:00.000 97.5 [degF] Temperature 2024-12-25 12:33:00.000 97.5 [degF] Temperature 2024-12-24 11:53:00.000 97.6 [degF] Temperature 2024-12-23 11:49:00.000 97.6 [degF] Temperature 2024-12-22 11:39:00.000 97.5 [degF] Temperature 2024-12-21 12:41:00.000 97.5 [degF] Temperature 2024-12-20 12:22:00.000 97.3 [degF] Temperature 2024-12-19 11:39:00.000 97.8 [degF] Temperature 2024-12-18 11:58:00.000 97.5 [degF] Temperature 2024-12-17 11:52:00.000 97.3 [degF] Temperature 2024-12-16 11:35:00.000 97.5 [degF] Temperature 2024 11:41:00.000 97.5 [degF] Temperature 2024-12-14 11:23:00.000 97.4 [degF] Temperature 2024-12-13 12:25:00.000 97.5 [degF] Temperature 2024-12-12 11:06:00.000 97.4 [degF] Temperature 2024-12-11 11:58:00.000 97.5 [degF] Temperature 2024-12-10 11:59:00.000 97.5 [degF] Temperature 2024-12-09 11:11:00.000 97.8 [degF] Temperature 2024-12-08 12:02:00.000 97.5 [degF] Temperature 2024-12-07 12:00:00.000 97.8 [degF] Temperature 2024-12-06 12:01:00.000 97.5 [degF] Temperature 2024-12-05 11:53:00.000 97.5 [degF] Temperature 2024-12-04 12:12:00.000 97.5 [degF] Temperature 2024-12-03 11:42:00.000 97.5 [degF] Temperature 2024-12-02 12:06:00.000 98 [degF] Temperature 2024-12-01 11:35:00.000 97.5 [degF] Temperature 2024-11-30 10:54:00.000 97.8 [degF] Temperature 2024-11-29 11:33:00.000 97.5 [degF] Temperature 2024-11-28 11:02:00.000 97.5 [degF] Temperature 2024-11-27 11:45:00.000 97.5 [degF] Temperature 2024-11-26 11:55:00.000 97.5 [degF] Temperature 2024-11-25 11:42:00.000 97.5 [degF] Temperature 2024-11-24 19:36:00.000 97.6 [degF] Temperature 2024-11-24 11:03:00.000 97.6 [degF] Temperature 2024-11-23 12:09:00.000 97.5 [degF] Temperature 2024-11-22 12:11:00.000 97.9 [degF] Temperature 2024-11-21 11:25:00.000 98.1 [degF] Temperature 2024-11-19 22:31:00.000 97.5 [degF] Systolic Blood Pressure 2024-12-23 11:50:00.000 124 mm [Hg] Diastolic Blood Pressure 2024-12-23 11:50:00.000 64 mm [Hg] Plan of Treatment Planned Activity [...] Future Scheduled Test SKILLED NU RSE TO PRE-POUR MEDICATION PER MEDICATION LIST TILL NEXT FDC VISIT [code = SKILLED NURSE TO PRE-POUR MEDICATION PER MEDICATION LIST TILL NEXT FDC VISIT] Future Scheduled Test PATIENT MA Y HAVE ONE SET OF EMERGENCY MEDICATION NOT TO BE PRE-POURED ANY SOONER THAN 24 HOURS BEFORE SEVERE INCLEMENT WEATHER OR EMERGENT EVENT AND FOLLOWING SKILLED NURSE EVALUATION OF PATIENT SAFETY. [code = PATIENT MAY HAVE ONE SET OF EMERGENCY MEDICATION NOT TO BE PRE-POURED ANY SOONER THAN 24 HOURS BEFORE SEVERE INCLEMENT WEATHER OR EMERGENT EVENT AND FOLLOWING SKILLED NURSE EVALUATION OF PATIENT SAFETY.] Future Scheduled Test SKILLED NU RSE TO O/A OF PATIENTS MENTAL/BEHAVIORAL STATUS, ASSESS VITAL SIGNS DAILY [code = SKILLED NURSE TO O/A OF PATIENTS MENTAL/BEHAVIORAL STATUS, ASSESS VITAL SIGNS DAILY] Future Scheduled Test SKILLED NU RSE FOR [...] MEDICATIONS DAILY AND PRE-POUR MEDICATIONS TILL NEXT FDC VISIT PER MEDICATION LIST. [code = SKILLED NURSE TO ADMINISTER MEDICATIONS DAILY AND PRE-POUR MEDICATIONS TILL NEXT FDC VISIT PER MEDICATION LIST.] Future Scheduled Test [...] ACTIVITIES] Future Scheduled Test SKILLED NU RSE TO [...] AWARENESS FOR SAFETY AND WILL NOTIFY CLINICAL BUFFING WHEEL OPERATOR AND PHYSICIAN/PROVIDER WITH ANY CHANGE IN CONDITION. [code = SKILLED NURSE WILL MAINTAIN SITUATIONAL AWARENESS FOR SAFETY AND WILL NOTIFY CLINICAL BUFFING WHEEL OPERATOR AND PHYSICIAN/PROVIDER WITH ANY CHANGE IN CONDITION.] Future Scheduled Test SKILLED NU RSE TO PROVIDE INSTRUCTION TO PATIENT/CAREGIVER RELATED TO DISCHARGE PLANNING. [code = SKILLED NURSE TO PROVIDE INSTRUCTION TO PATIENT/CAREGIVER RELATED TO DISCHARGE PLANNING.] Future Scheduled Test CLINICAL S UMMARY (SOC/RECERT, 10 DAY, 60 DAY): THE PATIENT IS RECEIVING HOMECARE DUE TO NEW ONSET/EXACERBATION OF: YES RECENT HOSPITALIZATION/INPATIENT ADMISSION RELATED TO: YES NEW OR CHANGED MEDICATIONS PERTINENT TO THE PLAN OF CARE: YES PATIENT LIVING SITUATION/CAREGIVER STATUS: WITH FAMILY SUMMARIZE SKILLED NEED: MEDICATION MANAGEMENT, VITAL SIGN ASSESSMENT, MENTAL STATUS ASSESSMENT AND DIAGNOSIS MANAGEMENT AND MEDICAL CARE (REMOVE THE FOLLOWING STATEMENT IF NOT APPLICABLE) MEDICATIONS ADMINISTERED AND/OR PREPOURED PER MEDICATION PROFILE [code = CLINICAL SUMMARY (SOC/RECERT, 10 DAY, 60 DAY): THE PATIENT IS RECEIVING HOMECARE DUE TO NEW ONSET/EXACERBATION OF: YES RECENT HOSPITALIZATION/INPATIENT ADMISSION RELATED TO: YES NEW OR CHANGED MEDICATIONS PERTINENT TO THE PLAN OF CARE: YES PATIENT LIVING SITUATION/CAREGIVER STATUS: WITH FAMILY SUMMARIZE SKILLED NEED: MEDICATION MANAGEMENT, VITAL SIGN ASSESSMENT, MENTAL STATUS ASSESSMENT AND DIAGNOSIS MANAGEMENT AND MEDICAL CARE (REMOVE THE FOLLOWING STATEMENT IF NOT APPLICABLE) MEDICATIONS ADMINISTERED AND/OR PREPOURED PER MEDICATION PROFILE] Goal 2024-11-18 Patient Goal - TO HAVE LESS PAIN [...] CARE WILL BE ESTABLISHED THAT MEETS PATIENT'S FDC NEEDS AND INCLUDES PATIENT GOAL FOR HOME HEALTH. Goal Provider Goal - PATIENT WILL COMPLY WITH MEDICATION WHEN SKILLED NURSE PRE-POURS MEDICATION THROUGHOUT CERTIFICATION PERIOD. Goal Provider Goal - MEDICATION WILL BE AVAILABLE DURING INCLEMENT WEATHER OR EMERGENT EVENT THROUGHOUT CERTIFICATION PERIOD. Goal Provider Goal - ALTERED MENTAL/BEHAVIORAL STATUS [...] THE CERTIFICATION PERIOD. Goal Provider Goal - PSYCHOSOCIAL [...] FROM HOSPITALIZATION, AND ADHERE TO THE SKILLED NURSE S PLAN OF CARE THROUGHOUT THE CERTIFICATION PERIOD. Encounters Start Date/Time End Date/Time Encounter Type Admission Type Attending [facility] Care Department Encounter ID Discharge Date Discharge Status Discharge Condition Discharge Reason Percent Goals Met 2024-11-19 00:00:00 2025-01-17 00:00:00 Outpatient RECERTIFIC ATION ERIC EDDY [facility] [id number] 48.39
--- OUTSIDE RECORDS SUMMARY | 2025-01-16 19:00 | XMS_ITS | Clinical Summary ---
Author Organization Unknown Care Team Providers Care Drug Safety Physician Name Role Phone ADILIA FELIPE, VIOLETA Unavailable Unavailable SURJIT DAVID, ERIC Unavailable Unavailable Payers Payer Name Policy Type Policy Number Effective Date Expira tion Date MEDICAID [facility] [id number] Problems Condition Name Condition Details Condition Category Status Onset Date Resolution Date Last Treatment Date Treating Clinician Comments ESSENTIAL (PRIMARY) HYPERTENSION Active 09-21 00:00: 00 ATHSCL HEART DISEASE OF [place] CORONARY ARTERY W/O ANG PCTRS Active 09-21 [...] CIGARETTES, UNCOMPLICATE D Active 09-21 00:00: 00 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 09-21 00:00: [...] release 24 hr 805 00:00: 00 Yes [id number] 60 mg AT BEDTIME 60 mg AT BEDTIME (route: oral) Med Classific ation: Cardiovas cular Therapy Agents oxycodone 5 mg tablet 09-04 00:00: 00 11-19 23:59 :00 No [id number] Unavailable 5 mg FIVE TIMES DAILY NEEDED 5 mg FIVE TIMES DAILY NEEDED (route: oral) Med Classific ation: Analgesic , Anti-infl ammatory or Antipyret ic gabapentin 600 mg tablet 09-03 00:00: 00 09-25 23:59 :00 No [id number] 600 mg 2 TIMES DAILY 600 mg 2 TIMES DAILY (route: oral) Med Classific ation: Central Nervous System Agents nicotine 21 mg/24 hr daily transdermal patch 08-30 00:00: 00 Yes [id number] Unavailable 21 mg DAILY 21 mg DAILY (route: transderma l) Med Classific ation: Chemical Dependenc y, Agents to Treat Alcohol Prep Pads 08-29 00:00: 00 05-18 23:59 :00 No [id number] 1 pads, medicat ed DIRECTED THREE TIMES DAILY AND NEEDED 1 pads, medicated DIRECTED THREE TIMES DAILY AND NEEDED (route: topical) Med Classific ation: Antisepti cs and Disinfect ants amitriptyli ne 50 mg tablet 08-29 00:00: 00 09-22 23:59 :00 No [id number] Unavailable 50 mg AT BEDTIME 50 mg AT BEDTIME (route: oral) Med Classific ation: Central Nervous System Agents Asmanex HFA 100 mcg/actuati on aerosol inhaler 08-29 00:00: 00 Yes [id number] 2 puff TWICE DAILY 2 puff TWICE DAILY (route: inhalation ) Med Classific ation: Respirato ry Therapy Agents atorvastati n 80 mg tablet 08-29 00:00: 00 Yes [id number] Unavailable 80 mg BEDTIME 80 mg BEDTIME (route: oral) Med Classific ation: Cardiovas cular Therapy Agents carvedilol 25 mg tablet 08-29 00:00: 00 Yes [id number] Unavailable 25 mg TWICE DAILY 25 mg TWICE DAILY (route: oral) Med Classific ation: Cardiovas cular Therapy Agents clopidogrel 75 mg tablet 08-29 00:00: 00 Yes [id number] 75 mg EVERY AM 75 mg EVERY AM (route: oral) Med Classific ation: Hematolog ical Agents docusate sodium 100 mg capsule 08-29 00:00: 00 09-25 23:59 :00 No [id number] Unavailable 100 mg TWICE DAILY 100 mg TWICE DAILY (route: oral) Med Classific ation: Gastroint estinal Therapy Agents escitalopra m 20 mg tablet 08-29 00:00: 00 Yes [id number] Unavailable 20 mg EVERY PM 20 mg EVERY PM (route: oral) Med Classific ation: Central Nervous System Agents FeroSul 325 mg (65 mg iron) tablet 08-29 00:00: 00 09-25 23:59 :00 No [id number] Unavailable 325 mg TWICE DAILY IN THE MORNING AND AT BEDTIME 325 mg TWICE DAILY IN THE MORNING AND AT BEDTIME (route: oral) Med Classific ation: Electroly te Balance-N utritiona l Products gabapentin 800 mg tablet 08-29 00:00: 00 09-22 23:59 :00 No [id number] 800 mg 2 TIMES DAILY 800 mg 2 TIMES DAILY (route: oral) Med Classific ation: Central Nervous System Agents hydralazine 25 mg tablet 08-29 00:00: 00 09-22 23:59 :00 No [id number] Unavailable 25 mg 3 TIMES DAILY 25 mg 3 TIMES DAILY (route: oral) Med Classific ation: Cardiovas cular Therapy Agents hydralazine 50 mg tablet 08-29 00:00: 00 09-25 23:59 :00 No [id number] Unavailable 50 mg THREE TIMES DAILY IN THE MORNING AT 50 mg THREE TIMES DAILY IN THE MORNING AT (route: oral) Med Classific ation: Cardiovas cular Therapy Agents mirtazapine 45 mg tablet 08-29 00:00: 00 Yes [id number] Unavailable 45 mg AT BEDTIME 45 mg AT BEDTIME (route: oral) Med Classific ation: Central Nervous System Agents omeprazole 20 mg capsule,del ayed release 08-29 00:00: 00 Yes [id number] 20 mg TWICE DAILY 20 mg TWICE DAILY (route: oral) Med Classific ation: Gastroint estinal Therapy Agents lisinopril 40 mg tablet 09-25 00:00: 00 Yes [id number] 40 mg DAILY 40 mg DAILY (route: oral) Med Classific ation: Cardiovas cular Therapy Agents metformin 1,000 mg tablet 09-25 00:00: 00 09-22 23:59 :00 No [id number] 1000 mg 2 TIMES DAILY 1000 mg 2 TIMES DAILY (route: oral) Med Classific ation: Endocrine multivitami n tablet 09-25 00:00: 00 Yes [id number] 1 tablet DAILY 1 tablet DAILY (route: oral) Med Classific ation: Electroly te Balance-N utritiona l Products nifedipine ER 60 mg tablet,exte nded release 09-25 00:00: 00 Yes [id number] 60 mg EVERY PM 60 mg EVERY PM (route: oral) Med Classific ation: Cardiovas cular Therapy Agents pioglitazon e 15 mg tablet 09-25 00:00: 00 Yes [id number] 15 mg DAILY 15 mg DAILY (route: oral) Med Classific ation: Endocrine Tresiba FlexTouch U-100 insulin 100 unit/mL (3 mL) subcutaneou s pen 09-25 00:00: 00 Yes [id number] 10 In unit DAILY 10 In unit DAILY (route: subcutaneo ) Med Classific ation: Endocrine aspirin 81 mg tablet 09-22 00:00: 00 Yes [id number] 1 tablet DAILY 1 tablet DAILY (route: oral) Med Classific ation: Hematolog ical Agents docusate sodium 100 mg capsule 09-22 00:00: 00 Yes [id number] 1 capsule 2 TIMES DAILY 1 capsule 2 TIMES DAILY (route: oral) Med Classific ation: Gastroint estinal Therapy Agents ferrous sulfate 325 mg (65 mg iron) tablet 09-22 00:00: 00 Yes [id number] 1 tablet 2 TIMES DAILY 1 tablet 2 TIMES DAILY (route: oral) Med Classific ation: Electroly te Balance-N utritiona l Products isosorbide mononitrate ER 30 mg tablet,exte nded release 24 hr 09-22 00:00: 00 Yes [id number] 1 tablet DAILY 1 tablet DAILY (route: [...] PRE-POUR MEDICATION PER MEDICATION LIST TILL NEXT USP VISIT [code = SKILLED NURSE TO PRE-POUR MEDICATION PER MEDICATION LIST TILL NEXT USP VISIT] Future Scheduled Test PATIENT MA Y [...] AWARENESS FOR SAFETY AND WILL NOTIFY CLINICAL BEE ROBBER AND PHYSICIAN/PROVIDER WITH ANY CHANGE IN CONDITION. [code = SKILLED NURSE WILL MAINTAIN SITUATIONAL AWARENESS FOR SAFETY AND WILL NOTIFY CLINICAL BEE ROBBER AND PHYSICIAN/PROVIDER WITH ANY CHANGE IN CONDITION.] [...] End Date/Time Encounter Type Admission Type Attending [facility] Care Department Encounter ID Discharge Date Discharge Status Discharge Condition Discharge Reason Percent Goals Met 2024-11-19 00:00:00 2025-01-17 00:00:00 Outpatient RECERTIFIC ATION ERIC EDDY [facility] [id number] 48.39
--- OUTSIDE RECORDS SUMMARY | 2025-01-16 19:00 | XMS_ITS | Clinical Summary ---
Author Organization Unknown Care Team Providers Care Rod And Tube Straightener Name Role Phone ADILIA FELIPE, VIOLETA Unavailable Unavailable SURJIT DAVID, ERIC Unavailable Unavailable Payers Payer Name Policy Type Policy Number Effective Date Expira tion Date MEDICAID [facility] [id number] Problems Condition Name Condition Details Condition Category Status Onset Date Resolution Date Last Treatment Date Treating Clinician Comments ESSENTIAL (PRIMARY) HYPERTENSION Active 09-21 00:00: 00 ATHSCL HEART DISEASE OF [place] CORONARY ARTERY W/O ANG PCTRS Active 09-21 [...] CIGARETTES, UNCOMPLICATE D Active 09-21 00:00: 00 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 09-21 00:00: 00 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 LIVING (CURRENT) USE OF ANTITHROMBOT ICS/ANTIPLAT ELETS Active [...] release 24 hr 805 00:00: 00 Yes [id number] 60 mg AT BEDTIME 60 mg AT BEDTIME (route: oral) Med Classific ation: Cardiovas cular Therapy Agents oxycodone 5 mg tablet 09-04 00:00: 00 11-19 23:59 :00 No [id number] Unavailable 5 mg FIVE TIMES DAILY NEEDED 5 mg FIVE TIMES DAILY NEEDED (route: oral) Med Classific ation: Analgesic , Anti-infl ammatory or Antipyret ic gabapentin 600 mg tablet 09-03 00:00: 00 09-25 23:59 :00 No [id number] 600 mg 2 TIMES DAILY 600 mg 2 TIMES DAILY (route: oral) Med Classific ation: Central Nervous System Agents nicotine 21 mg/24 hr daily transdermal patch 08-30 00:00: 00 Yes [id number] Unavailable 21 mg DAILY 21 mg DAILY (route: transderma l) Med Classific ation: Chemical Dependenc y, Agents to Treat Alcohol Prep Pads 08-29 00:00: 00 05-18 23:59 :00 No [id number] 1 pads, medicat ed DIRECTED THREE TIMES DAILY AND NEEDED 1 pads, medicated DIRECTED THREE TIMES DAILY AND NEEDED (route: topical) Med Classific ation: Antisepti cs and Disinfect ants amitriptyli ne 50 mg tablet 08-29 00:00: 00 09-22 23:59 :00 No [id number] Unavailable 50 mg AT BEDTIME 50 mg AT BEDTIME (route: oral) Med Classific ation: Central Nervous System Agents Asmanex HFA 100 mcg/actuati on aerosol inhaler 08-29 00:00: 00 Yes [id number] 2 puff TWICE DAILY 2 puff TWICE DAILY (route: inhalation ) Med Classific ation: Respirato ry Therapy Agents atorvastati n 80 mg tablet 08-29 00:00: 00 Yes [id number] Unavailable 80 mg BEDTIME 80 mg BEDTIME (route: oral) Med Classific ation: Cardiovas cular Therapy Agents carvedilol 25 mg tablet 08-29 00:00: 00 Yes [id number] Unavailable 25 mg TWICE DAILY 25 mg TWICE DAILY (route: oral) Med Classific ation: Cardiovas cular Therapy Agents clopidogrel 75 mg tablet 08-29 00:00: 00 Yes [id number] 75 mg EVERY AM 75 mg EVERY AM (route: oral) Med Classific ation: Hematolog ical Agents docusate sodium 100 mg capsule 08-29 00:00: 00 09-25 23:59 :00 No [id number] Unavailable 100 mg TWICE DAILY 100 mg TWICE DAILY (route: oral) Med Classific ation: Gastroint estinal Therapy Agents escitalopra m 20 mg tablet 08-29 00:00: 00 Yes [id number] Unavailable 20 mg EVERY PM 20 mg EVERY PM (route: oral) Med Classific ation: Central Nervous System Agents FeroSul 325 mg (65 mg iron) tablet 08-29 00:00: 00 09-25 23:59 :00 No [id number] Unavailable 325 mg TWICE DAILY IN THE MORNING AND AT BEDTIME 325 mg TWICE DAILY IN THE MORNING AND AT BEDTIME (route: oral) Med Classific ation: Electroly te Balance-N utritiona l Products gabapentin 800 mg tablet 08-29 00:00: 00 09-22 23:59 :00 No [id number] 800 mg 2 TIMES DAILY 800 mg 2 TIMES DAILY (route: oral) Med Classific ation: Central Nervous System Agents hydralazine 25 mg tablet 08-29 00:00: 00 09-22 23:59 :00 No [id number] Unavailable 25 mg 3 TIMES DAILY 25 mg 3 TIMES DAILY (route: oral) Med Classific ation: Cardiovas cular Therapy Agents hydralazine 50 mg tablet 08-29 00:00: 00 09-25 23:59 :00 No [id number] Unavailable 50 mg THREE TIMES DAILY IN THE MORNING AT 50 mg THREE TIMES DAILY IN THE MORNING AT (route: oral) Med Classific ation: Cardiovas cular Therapy Agents mirtazapine 45 mg tablet 08-29 00:00: 00 Yes [id number] Unavailable 45 mg AT BEDTIME 45 mg AT BEDTIME (route: oral) Med Classific ation: Central Nervous System Agents omeprazole 20 mg capsule,del ayed release 08-29 00:00: 00 Yes [id number] 20 mg TWICE DAILY 20 mg TWICE DAILY (route: oral) Med Classific ation: Gastroint estinal Therapy Agents lisinopril 40 mg tablet 09-25 00:00: 00 Yes [id number] 40 mg DAILY 40 mg DAILY (route: oral) Med Classific ation: Cardiovas cular Therapy Agents metformin 1,000 mg tablet 09-25 00:00: 00 09-22 23:59 :00 No [id number] 1000 mg 2 TIMES DAILY 1000 mg 2 TIMES DAILY (route: oral) Med Classific ation: Endocrine multivitami n tablet 09-25 00:00: 00 Yes [id number] 1 tablet DAILY 1 tablet DAILY (route: oral) Med Classific ation: Electroly te Balance-N utritiona l Products nifedipine ER 60 mg tablet,exte nded release 09-25 00:00: 00 Yes [id number] 60 mg EVERY PM 60 mg EVERY PM (route: oral) Med Classific ation: Cardiovas cular Therapy Agents pioglitazon e 15 mg tablet 09-25 00:00: 00 Yes [id number] 15 mg DAILY 15 mg DAILY (route: oral) Med Classific ation: Endocrine Tresiba FlexTouch U-100 insulin 100 unit/mL (3 mL) subcutaneou s pen 09-25 00:00: 00 Yes [id number] 10 In unit DAILY 10 In unit DAILY (route: subcutaneo ) Med Classific ation: Endocrine aspirin 81 mg tablet 09-22 00:00: 00 Yes [id number] 1 tablet DAILY 1 tablet DAILY (route: oral) Med Classific ation: Hematolog ical Agents docusate sodium 100 mg capsule 09-22 00:00: 00 Yes [id number] 1 capsule 2 TIMES DAILY 1 capsule 2 TIMES DAILY (route: oral) Med Classific ation: Gastroint estinal Therapy Agents ferrous sulfate 325 mg (65 mg iron) tablet 09-22 00:00: 00 Yes [id number] 1 tablet 2 TIMES DAILY 1 tablet 2 TIMES DAILY (route: oral) Med Classific ation: Electroly te Balance-N utritiona l Products isosorbide mononitrate ER 30 mg tablet,exte nded release 24 hr 09-22 00:00: 00 Yes [id number] 1 tablet DAILY 1 tablet DAILY (route: [...] PRE-POUR MEDICATION PER MEDICATION LIST TILL NEXT SNF VISIT [code = SKILLED NURSE TO PRE-POUR MEDICATION PER MEDICATION LIST TILL NEXT SNF VISIT] Future Scheduled Test PATIENT MA Y [...] DAILY AND PRE-POUR MEDICATIONS TILL NEXT SNF VISIT PER MEDICATION LIST. [code = SKILLED NURSE TO ADMINISTER MEDICATIONS DAILY AND PRE-POUR MEDICATIONS TILL NEXT SNF VISIT PER MEDICATION LIST.] Future Scheduled Test [...] AWARENESS FOR SAFETY AND WILL NOTIFY CLINICAL MARBLE MACHINE OPERATOR AND PHYSICIAN/PROVIDER WITH ANY CHANGE IN CONDITION. [code = SKILLED NURSE WILL MAINTAIN SITUATIONAL AWARENESS FOR SAFETY AND WILL NOTIFY CLINICAL MARBLE MACHINE OPERATOR AND PHYSICIAN/PROVIDER WITH ANY CHANGE IN [...] End Date/Time Encounter Type Admission Type Attending [facility] Care Department Encounter ID Discharge Date Discharge Status Discharge Condition Discharge Reason Percent Goals Met 2024-11-19 00:00:00 2025-01-17 00:00:00 Outpatient RECERTIFIC ATION ERIC EDDY [facility] [id number] 48.39
--- OUTSIDE RECORDS SUMMARY | 2025-01-16 19:00 | XMS_ITS | Clinical Summary ---
Author Organization Unknown Care Team Providers Care Charge Rn Name Role Phone ADILIA FELIPE, VIOLETA Unavailable Unavailable SURJIT DAVID, ERIC Unavailable Unavailable Payers Payer Name Policy Type Policy Number Effective Date Expira tion Date MEDICAID [facility] [id number] Problems Condition Name Condition Details Condition Category Status Onset Date Resolution Date Last Treatment Date Treating Clinician Comments ESSENTIAL (PRIMARY) HYPERTENSION Active 09-21 00:00: 00 ATHSCL HEART DISEASE OF [place] CORONARY ARTERY W/O ANG PCTRS Active 09-21 [...] CIGARETTES, UNCOMPLICATE D Active 09-21 00:00: 00 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 09-21 00:00: [...] release 24 hr 805 00:00: 00 Yes [id number] 60 mg AT BEDTIME 60 mg AT BEDTIME (route: oral) Med Classific ation: Cardiovas cular Therapy Agents oxycodone 5 mg tablet 09-04 00:00: 00 11-19 23:59 :00 No [id number] Unavailable 5 mg FIVE TIMES DAILY NEEDED 5 mg FIVE TIMES DAILY NEEDED (route: oral) Med Classific ation: Analgesic , Anti-infl ammatory or Antipyret ic gabapentin 600 mg tablet 09-03 00:00: 00 09-25 23:59 :00 No [id number] 600 mg 2 TIMES DAILY 600 mg 2 TIMES DAILY (route: oral) Med Classific ation: Central Nervous System Agents nicotine 21 mg/24 hr daily transdermal patch 08-30 00:00: 00 Yes [id number] Unavailable 21 mg DAILY 21 mg DAILY (route: transderma l) Med Classific ation: Chemical Dependenc y, Agents to Treat Alcohol Prep Pads 08-29 00:00: 00 05-18 23:59 :00 No [id number] 1 pads, medicat ed DIRECTED THREE TIMES DAILY AND NEEDED 1 pads, medicated DIRECTED THREE TIMES DAILY AND NEEDED (route: topical) Med Classific ation: Antisepti cs and Disinfect ants amitriptyli ne 50 mg tablet 08-29 00:00: 00 09-22 23:59 :00 No [id number] Unavailable 50 mg AT BEDTIME 50 mg AT BEDTIME (route: oral) Med Classific ation: Central Nervous System Agents Asmanex HFA 100 mcg/actuati on aerosol inhaler 08-29 00:00: 00 Yes [id number] 2 puff TWICE DAILY 2 puff TWICE DAILY (route: inhalation ) Med Classific ation: Respirato ry Therapy Agents atorvastati n 80 mg tablet 08-29 00:00: 00 Yes [id number] Unavailable 80 mg BEDTIME 80 mg BEDTIME (route: oral) Med Classific ation: Cardiovas cular Therapy Agents carvedilol 25 mg tablet 08-29 00:00: 00 Yes [id number] Unavailable 25 mg TWICE DAILY 25 mg TWICE DAILY (route: oral) Med Classific ation: Cardiovas cular Therapy Agents clopidogrel 75 mg tablet 08-29 00:00: 00 Yes [id number] 75 mg EVERY AM 75 mg EVERY AM (route: oral) Med Classific ation: Hematolog ical Agents docusate sodium 100 mg capsule 08-29 00:00: 00 09-25 23:59 :00 No [id number] Unavailable 100 mg TWICE DAILY 100 mg TWICE DAILY (route: oral) Med Classific ation: Gastroint estinal Therapy Agents escitalopra m 20 mg tablet 08-29 00:00: 00 Yes [id number] Unavailable 20 mg EVERY PM 20 mg EVERY PM (route: oral) Med Classific ation: Central Nervous System Agents FeroSul 325 mg (65 mg iron) tablet 08-29 00:00: 00 09-25 23:59 :00 No [id number] Unavailable 325 mg TWICE DAILY IN THE MORNING AND AT BEDTIME 325 mg TWICE DAILY IN THE MORNING AND AT BEDTIME (route: oral) Med Classific ation: Electroly te Balance-N utritiona l Products gabapentin 800 mg tablet 08-29 00:00: 00 09-22 23:59 :00 No [id number] 800 mg 2 TIMES DAILY 800 mg 2 TIMES DAILY (route: oral) Med Classific ation: Central Nervous System Agents hydralazine 25 mg tablet 08-29 00:00: 00 09-22 23:59 :00 No [id number] Unavailable 25 mg 3 TIMES DAILY 25 mg 3 TIMES DAILY (route: oral) Med Classific ation: Cardiovas cular Therapy Agents hydralazine 50 mg tablet 08-29 00:00: 00 09-25 23:59 :00 No [id number] Unavailable 50 mg THREE TIMES DAILY IN THE MORNING AT 50 mg THREE TIMES DAILY IN THE MORNING AT (route: oral) Med Classific ation: Cardiovas cular Therapy Agents mirtazapine 45 mg tablet 08-29 00:00: 00 Yes [id number] Unavailable 45 mg AT BEDTIME 45 mg AT BEDTIME (route: oral) Med Classific ation: Central Nervous System Agents omeprazole 20 mg capsule,del ayed release 08-29 00:00: 00 Yes [id number] 20 mg TWICE DAILY 20 mg TWICE DAILY (route: oral) Med Classific ation: Gastroint estinal Therapy Agents lisinopril 40 mg tablet 09-25 00:00: 00 Yes [id number] 40 mg DAILY 40 mg DAILY (route: oral) Med Classific ation: Cardiovas cular Therapy Agents metformin 1,000 mg tablet 09-25 00:00: 00 09-22 23:59 :00 No [id number] 1000 mg 2 TIMES DAILY 1000 mg 2 TIMES DAILY (route: oral) Med Classific ation: Endocrine multivitami n tablet 09-25 00:00: 00 Yes [id number] 1 tablet DAILY 1 tablet DAILY (route: oral) Med Classific ation: Electroly te Balance-N utritiona l Products nifedipine ER 60 mg tablet,exte nded release 09-25 00:00: 00 Yes [id number] 60 mg EVERY PM 60 mg EVERY PM (route: oral) Med Classific ation: Cardiovas cular Therapy Agents pioglitazon e 15 mg tablet 09-25 00:00: 00 Yes [id number] 15 mg DAILY 15 mg DAILY (route: oral) Med Classific ation: Endocrine Tresiba FlexTouch U-100 insulin 100 unit/mL (3 mL) subcutaneou s pen 09-25 00:00: 00 Yes [id number] 10 In unit DAILY 10 In unit DAILY (route: subcutaneo ) Med Classific ation: Endocrine aspirin 81 mg tablet 09-22 00:00: 00 Yes [id number] 1 tablet DAILY 1 tablet DAILY (route: oral) Med Classific ation: Hematolog ical Agents docusate sodium 100 mg capsule 09-22 00:00: 00 Yes [id number] 1 capsule 2 TIMES DAILY 1 capsule 2 TIMES DAILY (route: oral) Med Classific ation: Gastroint estinal Therapy Agents ferrous sulfate 325 mg (65 mg iron) tablet 09-22 00:00: 00 Yes [id number] 1 tablet 2 TIMES DAILY 1 tablet 2 TIMES DAILY (route: oral) Med Classific ation: Electroly te Balance-N utritiona l Products isosorbide mononitrate ER 30 mg tablet,exte nded release 24 hr 09-22 00:00: 00 Yes [id number] 1 tablet DAILY 1 tablet DAILY (route: [...] PRE-POUR MEDICATION PER MEDICATION LIST TILL NEXT CARE HOME VISIT [code = SKILLED NURSE TO PRE-POUR MEDICATION PER MEDICATION LIST TILL NEXT CARE HOME VISIT] Future Scheduled Test PATIENT MA Y [...] MEDICATIONS DAILY AND PRE-POUR MEDICATIONS TILL NEXT CARE HOME VISIT PER MEDICATION LIST. [code = SKILLED NURSE TO ADMINISTER MEDICATIONS DAILY AND PRE-POUR MEDICATIONS TILL NEXT CARE HOME VISIT PER MEDICATION LIST.] Future Scheduled [...] AWARENESS FOR SAFETY AND WILL NOTIFY CLINICAL MOLDING TECHNICIAN AND PHYSICIAN/PROVIDER WITH ANY CHANGE IN CONDITION. [code = SKILLED NURSE WILL MAINTAIN SITUATIONAL AWARENESS FOR SAFETY AND WILL NOTIFY CLINICAL MOLDING TECHNICIAN AND PHYSICIAN/PROVIDER WITH ANY CHANGE IN CONDITION.] [...] CARE WILL BE ESTABLISHED THAT MEETS PATIENT'S CARE HOME NEEDS AND INCLUDES PATIENT GOAL FOR [...] End Date/Time Encounter Type Admission Type Attending [facility] Care Department Encounter ID Discharge Date Discharge Status Discharge Condition Discharge Reason Percent Goals Met 2024-11-19 00:00:00 2025-01-17 00:00:00 Outpatient RECERTIFIC ATION ERIC EDDY [facility] [id number] 48.39
--- OUTSIDE RECORDS SUMMARY | 2025-01-16 19:00 | XMS_ITS | Clinical Summary ---
Author Organization Unknown Care Team Providers Care Animal Attendants And Trainers Name Role Phone ADILIA FELIPE, VIOLETA Unavailable Unavailable SURJIT DAVID, ERIC Unavailable Unavailable Payers Payer Name Policy Type Policy Number Effective Date Expira tion Date MEDICAID 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 09-21 00:00: 00 [facility] (CURRENT) USE OF ANTITHROMBOT ICS/ANTIPLAT ELETS Active [...] release 24 hr 805 00:00: 00 Yes [id number] 60 mg AT BEDTIME 60 mg AT BEDTIME (route: oral) Med Classific ation: Cardiovas cular Therapy Agents oxycodone 5 mg tablet 09-04 00:00: 00 11-19 23:59 :00 No [id number] Unavailable 5 mg FIVE TIMES DAILY NEEDED 5 mg FIVE TIMES DAILY NEEDED (route: oral) Med Classific ation: Analgesic , Anti-infl ammatory or Antipyret ic gabapentin 600 mg tablet 09-03 00:00: 00 09-25 23:59 :00 No [id number] 600 mg 2 TIMES DAILY 600 mg 2 TIMES DAILY (route: oral) Med Classific ation: Central Nervous System Agents nicotine 21 mg/24 hr daily transdermal patch 08-30 00:00: 00 Yes [id number] Unavailable 21 mg DAILY 21 mg DAILY (route: transderma l) Med Classific ation: Chemical Dependenc y, Agents to Treat Alcohol Prep Pads 08-29 00:00: 00 05-18 23:59 :00 No [id number] 1 pads, medicat ed DIRECTED THREE TIMES DAILY AND NEEDED 1 pads, medicated DIRECTED THREE TIMES DAILY AND NEEDED (route: topical) Med Classific ation: Antisepti cs and Disinfect ants amitriptyli ne 50 mg tablet 08-29 00:00: 00 09-22 23:59 :00 No [id number] Unavailable 50 mg AT BEDTIME 50 mg AT BEDTIME (route: oral) Med Classific ation: Central Nervous System Agents Asmanex HFA 100 mcg/actuati on aerosol inhaler 08-29 00:00: 00 Yes [id number] 2 puff TWICE DAILY 2 puff TWICE DAILY (route: inhalation ) Med Classific ation: Respirato ry Therapy Agents atorvastati n 80 mg tablet 08-29 00:00: 00 Yes [id number] Unavailable 80 mg BEDTIME 80 mg BEDTIME (route: oral) Med Classific ation: Cardiovas cular Therapy Agents carvedilol 25 mg tablet 08-29 00:00: 00 Yes [id number] Unavailable 25 mg TWICE DAILY 25 mg TWICE DAILY (route: oral) Med Classific ation: Cardiovas cular Therapy Agents clopidogrel 75 mg tablet 08-29 00:00: 00 Yes [id number] 75 mg EVERY AM 75 mg EVERY AM (route: oral) Med Classific ation: Hematolog ical Agents docusate sodium 100 mg capsule 08-29 00:00: 00 09-25 23:59 :00 No [id number] Unavailable 100 mg TWICE DAILY 100 mg TWICE DAILY (route: oral) Med Classific ation: Gastroint estinal Therapy Agents escitalopra m 20 mg tablet 08-29 00:00: 00 Yes [id number] Unavailable 20 mg EVERY PM 20 mg EVERY PM (route: oral) Med Classific ation: Central Nervous System Agents FeroSul 325 mg (65 mg iron) tablet 08-29 00:00: 00 09-25 23:59 :00 No [id number] Unavailable 325 mg TWICE DAILY IN THE MORNING AND AT BEDTIME 325 mg TWICE DAILY IN THE MORNING AND AT BEDTIME (route: oral) Med Classific ation: Electroly te Balance-N utritiona l Products gabapentin 800 mg tablet 08-29 00:00: 00 09-22 23:59 :00 No [id number] 800 mg 2 TIMES DAILY 800 mg 2 TIMES DAILY (route: oral) Med Classific ation: Central Nervous System Agents hydralazine 25 mg tablet 08-29 00:00: 00 09-22 23:59 :00 No [id number] Unavailable 25 mg 3 TIMES DAILY 25 mg 3 TIMES DAILY (route: oral) Med Classific ation: Cardiovas cular Therapy Agents hydralazine 50 mg tablet 08-29 00:00: 00 09-25 23:59 :00 No [id number] Unavailable 50 mg THREE TIMES DAILY IN THE MORNING AT 50 mg THREE TIMES DAILY IN THE MORNING AT (route: oral) Med Classific ation: Cardiovas cular Therapy Agents mirtazapine 45 mg tablet 08-29 00:00: 00 Yes [id number] Unavailable 45 mg AT BEDTIME 45 mg AT BEDTIME (route: oral) Med Classific ation: Central Nervous System Agents omeprazole 20 mg capsule,del ayed release 08-29 00:00: 00 Yes [id number] 20 mg TWICE DAILY 20 mg TWICE DAILY (route: oral) Med Classific ation: Gastroint estinal Therapy Agents lisinopril 40 mg tablet 09-25 00:00: 00 Yes [id number] 40 mg DAILY 40 mg DAILY (route: oral) Med Classific ation: Cardiovas cular Therapy Agents metformin 1,000 mg tablet 09-25 00:00: 00 09-22 23:59 :00 No [id number] 1000 mg 2 TIMES DAILY 1000 mg 2 TIMES DAILY (route: oral) Med Classific ation: Endocrine multivitami n tablet 09-25 00:00: 00 Yes [id number] 1 tablet DAILY 1 tablet DAILY (route: oral) Med Classific ation: Electroly te Balance-N utritiona l Products nifedipine ER 60 mg tablet,exte nded release 09-25 00:00: 00 Yes [id number] 60 mg EVERY PM 60 mg EVERY PM (route: oral) Med Classific ation: Cardiovas cular Therapy Agents pioglitazon e 15 mg tablet 09-25 00:00: 00 Yes [id number] 15 mg DAILY 15 mg DAILY (route: oral) Med Classific ation: Endocrine Tresiba FlexTouch U-100 insulin 100 unit/mL (3 mL) subcutaneou s pen 09-25 00:00: 00 Yes [id number] 10 In unit DAILY 10 In unit DAILY (route: subcutaneo ) Med Classific ation: Endocrine aspirin 81 mg tablet 09-22 00:00: 00 Yes [id number] 1 tablet DAILY 1 tablet DAILY (route: oral) Med Classific ation: Hematolog ical Agents docusate sodium 100 mg capsule 09-22 00:00: 00 Yes [id number] 1 capsule 2 TIMES DAILY 1 capsule 2 TIMES DAILY (route: oral) Med Classific ation: Gastroint estinal Therapy Agents ferrous sulfate 325 mg (65 mg iron) tablet 09-22 00:00: 00 Yes [id number] 1 tablet 2 TIMES DAILY 1 tablet 2 TIMES DAILY (route: oral) Med Classific ation: Electroly te Balance-N utritiona l Products isosorbide mononitrate ER 30 mg tablet,exte nded release 24 hr 09-22 00:00: 00 Yes [id number] 1 tablet DAILY 1 tablet DAILY (route: [...] PRE-POUR MEDICATION PER MEDICATION LIST TILL NEXT [facility] [code = SKILLED NURSE TO PRE-POUR MEDICATION PER MEDICATION LIST TILL NEXT [facility]] Future Scheduled Test PATIENT MA Y [...] AWARENESS FOR SAFETY AND WILL NOTIFY CLINICAL WEB MOBILE DESIGNER AND PHYSICIAN/PROVIDER WITH ANY CHANGE IN CONDITION. [code = SKILLED NURSE WILL MAINTAIN SITUATIONAL AWARENESS FOR SAFETY AND WILL NOTIFY CLINICAL WEB MOBILE DESIGNER AND PHYSICIAN/PROVIDER WITH ANY CHANGE IN CONDITION.] [...] Date/Time Encounter Type Admission Type Attending [facility] Care Department Encounter ID Discharge Date Discharge Status Discharge Condition Discharge Reason Percent Goals Met 2024-11-19 00:00:00 2025-01-17 00:00:00 Outpatient RECERTIFIC ATION ERIC EDDY [facility] [id number] 48.39
--- OUTSIDE RECORDS SUMMARY | 2025-01-16 19:00 | XMS_ITS | Clinical Summary ---
Author Organization Unknown Care Team Providers Care Thermostat Machine Tender Name Role Phone ADILIA FELIPE, VIOLETA Unavailable Unavailable SURJIT DAVID, ERCI Unavailable Unavailable Payers Payer Name Policy Type Policy Number Effective Date Expira tion Date MEDICAID [facility] [id number] Problems Condition Name Condition Details Condition Category Status Onset Date Resolution Date Last Treatment Date Treating Clinician Comments ESSENTIAL (PRIMARY) HYPERTENSION Active 09-21 00:00: 00 ATHSCL HEART DISEASE OF [place] CORONARY ARTERY W/O ANG PCTRS Active 09-21 [...] CIGARETTES, UNCOMPLICATE D Active 09-21 00:00: 00 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 09-21 00:00: 00 HALFW[place] (CURRENT) USE OF ANTITHROMBOT ICS/ANTIPLAT ELETS Active [...] release 24 hr 805 00:00: 00 Yes [id number] 60 mg AT BEDTIME 60 mg AT BEDTIME (route: oral) Med Classific ation: Cardiovas cular Therapy Agents oxycodone 5 mg tablet 09-04 00:00: 00 11-19 23:59 :00 No [id number] Unavailable 5 mg FIVE TIMES DAILY NEEDED 5 mg FIVE TIMES DAILY NEEDED (route: oral) Med Classific ation: Analgesic , Anti-infl ammatory or Antipyret ic gabapentin 600 mg tablet 09-03 00:00: 00 09-25 23:59 :00 No [id number] 600 mg 2 TIMES DAILY 600 mg 2 TIMES DAILY (route: oral) Med Classific ation: Central Nervous System Agents nicotine 21 mg/24 hr daily transdermal patch 08-30 00:00: 00 Yes [id number] Unavailable 21 mg DAILY 21 mg DAILY (route: transderma l) Med Classific ation: Chemical Dependenc y, Agents to Treat Alcohol Prep Pads 08-29 00:00: 00 05-18 23:59 :00 No [id number] 1 pads, medicat ed DIRECTED THREE TIMES DAILY AND NEEDED 1 pads, medicated DIRECTED THREE TIMES DAILY AND NEEDED (route: topical) Med Classific ation: Antisepti cs and Disinfect ants amitriptyli ne 50 mg tablet 08-29 00:00: 00 09-22 23:59 :00 No [id number] Unavailable 50 mg AT BEDTIME 50 mg AT BEDTIME (route: oral) Med Classific ation: Central Nervous System Agents Asmanex HFA 100 mcg/actuati on aerosol inhaler 08-29 00:00: 00 Yes [id number] 2 puff TWICE DAILY 2 puff TWICE DAILY (route: inhalation ) Med Classific ation: Respirato ry Therapy Agents atorvastati n 80 mg tablet 08-29 00:00: 00 Yes [id number] Unavailable 80 mg BEDTIME 80 mg BEDTIME (route: oral) Med Classific ation: Cardiovas cular Therapy Agents carvedilol 25 mg tablet 08-29 00:00: 00 Yes [id number] Unavailable 25 mg TWICE DAILY 25 mg TWICE DAILY (route: oral) Med Classific ation: Cardiovas cular Therapy Agents clopidogrel 75 mg tablet 08-29 00:00: 00 Yes [id number] 75 mg EVERY AM 75 mg EVERY AM (route: oral) Med Classific ation: Hematolog ical Agents docusate sodium 100 mg capsule 08-29 00:00: 00 09-25 23:59 :00 No [id number] Unavailable 100 mg TWICE DAILY 100 mg TWICE DAILY (route: oral) Med Classific ation: Gastroint estinal Therapy Agents escitalopra m 20 mg tablet 08-29 00:00: 00 Yes [id number] Unavailable 20 mg EVERY PM 20 mg EVERY PM (route: oral) Med Classific ation: Central Nervous System Agents FeroSul 325 mg (65 mg iron) tablet 08-29 00:00: 00 09-25 23:59 :00 No [id number] Unavailable 325 mg TWICE DAILY IN THE MORNING AND AT BEDTIME 325 mg TWICE DAILY IN THE MORNING AND AT BEDTIME (route: oral) Med Classific ation: Electroly te Balance-N utritiona l Products gabapentin 800 mg tablet 08-29 00:00: 00 09-22 23:59 :00 No [id number] 800 mg 2 TIMES DAILY 800 mg 2 TIMES DAILY (route: oral) Med Classific ation: Central Nervous System Agents hydralazine 25 mg tablet 08-29 00:00: 00 09-22 23:59 :00 No [id number] Unavailable 25 mg 3 TIMES DAILY 25 mg 3 TIMES DAILY (route: oral) Med Classific ation: Cardiovas cular Therapy Agents hydralazine 50 mg tablet 08-29 00:00: 00 09-25 23:59 :00 No [id number] Unavailable 50 mg THREE TIMES DAILY IN THE MORNING AT 50 mg THREE TIMES DAILY IN THE MORNING AT (route: oral) Med Classific ation: Cardiovas cular Therapy Agents mirtazapine 45 mg tablet 08-29 00:00: 00 Yes [id number] Unavailable 45 mg AT BEDTIME 45 mg AT BEDTIME (route: oral) Med Classific ation: Central Nervous System Agents omeprazole 20 mg capsule,del ayed release 08-29 00:00: 00 Yes [id number] 20 mg TWICE DAILY 20 mg TWICE DAILY (route: oral) Med Classific ation: Gastroint estinal Therapy Agents lisinopril 40 mg tablet 09-25 00:00: 00 Yes [id number] 40 mg DAILY 40 mg DAILY (route: oral) Med Classific ation: Cardiovas cular Therapy Agents metformin 1,000 mg tablet 09-25 00:00: 00 09-22 23:59 :00 No [id number] 1000 mg 2 TIMES DAILY 1000 mg 2 TIMES DAILY (route: oral) Med Classific ation: Endocrine multivitami n tablet 09-25 00:00: 00 Yes [id number] 1 tablet DAILY 1 tablet DAILY (route: oral) Med Classific ation: Electroly te Balance-N utritiona l Products nifedipine ER 60 mg tablet,exte nded release 09-25 00:00: 00 Yes [id number] 60 mg EVERY PM 60 mg EVERY PM (route: oral) Med Classific ation: Cardiovas cular Therapy Agents pioglitazon e 15 mg tablet 09-25 00:00: 00 Yes [id number] 15 mg DAILY 15 mg DAILY (route: oral) Med Classific ation: Endocrine Tresiba FlexTouch U-100 insulin 100 unit/mL (3 mL) subcutaneou s pen 09-25 00:00: 00 Yes [id number] 10 In unit DAILY 10 In unit DAILY (route: subcutaneo ) Med Classific ation: Endocrine aspirin 81 mg tablet 09-22 00:00: 00 Yes [id number] 1 tablet DAILY 1 tablet DAILY (route: oral) Med Classific ation: Hematolog ical Agents docusate sodium 100 mg capsule 09-22 00:00: 00 Yes [id number] 1 capsule 2 TIMES DAILY 1 capsule 2 TIMES DAILY (route: oral) Med Classific ation: Gastroint estinal Therapy Agents ferrous sulfate 325 mg (65 mg iron) tablet 09-22 00:00: 00 Yes [id number] 1 tablet 2 TIMES DAILY 1 tablet 2 TIMES DAILY (route: oral) Med Classific ation: Electroly te Balance-N utritiona l Products isosorbide mononitrate ER 30 mg tablet,exte nded release 24 hr 09-22 00:00: 00 Yes [id number] 1 tablet DAILY 1 tablet DAILY (route: [...] AWARENESS FOR SAFETY AND WILL NOTIFY CLINICAL EGG FACTORY WORKER AND PHYSICIAN/PROVIDER WITH ANY CHANGE IN CONDITION. [code = SKILLED NURSE WILL MAINTAIN SITUATIONAL AWARENESS FOR SAFETY AND WILL NOTIFY CLINICAL EGG FACTORY WORKER AND PHYSICIAN/PROVIDER WITH ANY CHANGE IN CONDITION.] [...] End Date/Time Encounter Type Admission Type Attending [facility] Care Department Encounter ID Discharge Date Discharge Status Discharge Condition Discharge Reason Percent Goals Met 2024-11-19 00:00:00 2025-01-17 00:00:00 Outpatient RECERTIFIC ATION ERIC EDDY [facility] [id number] 48.39
--- OUTSIDE RECORDS SUMMARY | 2025-01-16 19:00 | XMS_ITS | Clinical Summary ---
Author Organization Unknown Care Team Providers Care Bath Attendant Name Role Phone ADILIA FELIPE, VIOLETA Unavailable Unavailable SURJIT DAVID, ERIC Unavailable Unavailable Payers Payer Name Policy Type Policy Number Effective Date Expira tion Date MEDICAID [facility] [id number] Problems Condition Name Condition Details Condition Category Status Onset Date Resolution Date Last Treatment Date Treating Clinician Comments ESSENTIAL (PRIMARY) HYPERTENSION Active 09-21 00:00: 00 ATHSCL HEART DISEASE OF [place] CORONARY ARTERY W/O ANG PCTRS Active 09-21 [...] CIGARETTES, UNCOMPLICATE D Active 09-21 00:00: 00 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 09-21 00:00: 00 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 (CURRENT) USE OF ANTITHROMBOT ICS/ANTIPLAT ELETS Active [...] release 24 hr 805 00:00: 00 Yes [id number] 60 mg AT BEDTIME 60 mg AT BEDTIME (route: oral) Med Classific ation: Cardiovas cular Therapy Agents oxycodone 5 mg tablet 09-04 00:00: 00 11-19 23:59 :00 No [id number] Unavailable 5 mg FIVE TIMES DAILY NEEDED 5 mg FIVE TIMES DAILY NEEDED (route: oral) Med Classific ation: Analgesic , Anti-infl ammatory or Antipyret ic gabapentin 600 mg tablet 09-03 00:00: 00 09-25 23:59 :00 No [id number] 600 mg 2 TIMES DAILY 600 mg 2 TIMES DAILY (route: oral) Med Classific ation: Central Nervous System Agents nicotine 21 mg/24 hr daily transdermal patch 08-30 00:00: 00 Yes [id number] Unavailable 21 mg DAILY 21 mg DAILY (route: transderma l) Med Classific ation: Chemical Dependenc y, Agents to Treat Alcohol Prep Pads 08-29 00:00: 00 05-18 23:59 :00 No [id number] 1 pads, medicat ed DIRECTED THREE TIMES DAILY AND NEEDED 1 pads, medicated DIRECTED THREE TIMES DAILY AND NEEDED (route: topical) Med Classific ation: Antisepti cs and Disinfect ants amitriptyli ne 50 mg tablet 08-29 00:00: 00 09-22 23:59 :00 No [id number] Unavailable 50 mg AT BEDTIME 50 mg AT BEDTIME (route: oral) Med Classific ation: Central Nervous System Agents Asmanex HFA 100 mcg/actuati on aerosol inhaler 08-29 00:00: 00 Yes [id number] 2 puff TWICE DAILY 2 puff TWICE DAILY (route: inhalation ) Med Classific ation: Respirato ry Therapy Agents atorvastati n 80 mg tablet 08-29 00:00: 00 Yes [id number] Unavailable 80 mg BEDTIME 80 mg BEDTIME (route: oral) Med Classific ation: Cardiovas cular Therapy Agents carvedilol 25 mg tablet 08-29 00:00: 00 Yes [id number] Unavailable 25 mg TWICE DAILY 25 mg TWICE DAILY (route: oral) Med Classific ation: Cardiovas cular Therapy Agents clopidogrel 75 mg tablet 08-29 00:00: 00 Yes [id number] 75 mg EVERY AM 75 mg EVERY AM (route: oral) Med Classific ation: Hematolog ical Agents docusate sodium 100 mg capsule 08-29 00:00: 00 09-25 23:59 :00 No [id number] Unavailable 100 mg TWICE DAILY 100 mg TWICE DAILY (route: oral) Med Classific ation: Gastroint estinal Therapy Agents escitalopra m 20 mg tablet 08-29 00:00: 00 Yes [id number] Unavailable 20 mg EVERY PM 20 mg EVERY PM (route: oral) Med Classific ation: Central Nervous System Agents FeroSul 325 mg (65 mg iron) tablet 08-29 00:00: 00 09-25 23:59 :00 No [id number] Unavailable 325 mg TWICE DAILY IN THE MORNING AND AT BEDTIME 325 mg TWICE DAILY IN THE MORNING AND AT BEDTIME (route: oral) Med Classific ation: Electroly te Balance-N utritiona l Products gabapentin 800 mg tablet 08-29 00:00: 00 09-22 23:59 :00 No [id number] 800 mg 2 TIMES DAILY 800 mg 2 TIMES DAILY (route: oral) Med Classific ation: Central Nervous System Agents hydralazine 25 mg tablet 08-29 00:00: 00 09-22 23:59 :00 No [id number] Unavailable 25 mg 3 TIMES DAILY 25 mg 3 TIMES DAILY (route: oral) Med Classific ation: Cardiovas cular Therapy Agents hydralazine 50 mg tablet 08-29 00:00: 00 09-25 23:59 :00 No [id number] Unavailable 50 mg THREE TIMES DAILY IN THE MORNING AT 50 mg THREE TIMES DAILY IN THE MORNING AT (route: oral) Med Classific ation: Cardiovas cular Therapy Agents mirtazapine 45 mg tablet 08-29 00:00: 00 Yes [id number] Unavailable 45 mg AT BEDTIME 45 mg AT BEDTIME (route: oral) Med Classific ation: Central Nervous System Agents omeprazole 20 mg capsule,del ayed release 08-29 00:00: 00 Yes [id number] 20 mg TWICE DAILY 20 mg TWICE DAILY (route: oral) Med Classific ation: Gastroint estinal Therapy Agents lisinopril 40 mg tablet 09-25 00:00: 00 Yes [id number] 40 mg DAILY 40 mg DAILY (route: oral) Med Classific ation: Cardiovas cular Therapy Agents metformin 1,000 mg tablet 09-25 00:00: 00 09-22 23:59 :00 No [id number] 1000 mg 2 TIMES DAILY 1000 mg 2 TIMES DAILY (route: oral) Med Classific ation: Endocrine multivitami n tablet 09-25 00:00: 00 Yes [id number] 1 tablet DAILY 1 tablet DAILY (route: oral) Med Classific ation: Electroly te Balance-N utritiona l Products nifedipine ER 60 mg tablet,exte nded release 09-25 00:00: 00 Yes [id number] 60 mg EVERY PM 60 mg EVERY PM (route: oral) Med Classific ation: Cardiovas cular Therapy Agents pioglitazon e 15 mg tablet 09-25 00:00: 00 Yes [id number] 15 mg DAILY 15 mg DAILY (route: oral) Med Classific ation: Endocrine Tresiba FlexTouch U-100 insulin 100 unit/mL (3 mL) subcutaneou s pen 09-25 00:00: 00 Yes [id number] 10 In unit DAILY 10 In unit DAILY (route: subcutaneo ) Med Classific ation: Endocrine aspirin 81 mg tablet 09-22 00:00: 00 Yes [id number] 1 tablet DAILY 1 tablet DAILY (route: oral) Med Classific ation: Hematolog ical Agents docusate sodium 100 mg capsule 09-22 00:00: 00 Yes [id number] 1 capsule 2 TIMES DAILY 1 capsule 2 TIMES DAILY (route: oral) Med Classific ation: Gastroint estinal Therapy Agents ferrous sulfate 325 mg (65 mg iron) tablet 09-22 00:00: 00 Yes [id number] 1 tablet 2 TIMES DAILY 1 tablet 2 TIMES DAILY (route: oral) Med Classific ation: Electroly te Balance-N utritiona l Products isosorbide mononitrate ER 30 mg tablet,exte nded release 24 hr 09-22 00:00: 00 Yes [id number] 1 tablet DAILY 1 tablet DAILY (route: [...] PRE-POUR MEDICATION PER MEDICATION LIST TILL NEXT HALF-WAY VISIT [code = SKILLED NURSE TO PRE-POUR MEDICATION PER MEDICATION LIST TILL NEXT HALF-WAY VISIT] Future Scheduled Test PATIENT MA Y [...] MEDICATIONS DAILY AND PRE-POUR MEDICATIONS TILL NEXT HALF-WAY VISIT PER MEDICATION LIST. [code = SKILLED NURSE TO ADMINISTER MEDICATIONS DAILY AND PRE-POUR MEDICATIONS TILL NEXT HALF-WAY VISIT PER MEDICATION LIST.] Future Scheduled Test [...] AWARENESS FOR SAFETY AND WILL NOTIFY CLINICAL POULTRY FARM MANAGER AND PHYSICIAN/PROVIDER WITH ANY CHANGE IN CONDITION. [code = SKILLED NURSE WILL MAINTAIN SITUATIONAL AWARENESS FOR SAFETY AND WILL NOTIFY CLINICAL POULTRY FARM MANAGER AND PHYSICIAN/PROVIDER WITH ANY CHANGE IN [...] CARE WILL BE ESTABLISHED THAT MEETS PATIENT'S HALF-WAY NEEDS AND INCLUDES PATIENT GOAL FOR HOME [...] 2025-01-17 00:00:00 Outpatient RECERTIFIC ATION ERIC EDDY [facility] [id number] 48.39
--- OUTSIDE RECORDS SUMMARY | 2025-01-16 19:00 | XMS_ITS | Clinical Summary ---
Author Organization Unknown Care Team Providers Care Leather Fitter Name Role Phone ADILIA FELIPE, VIOLETA Unavailable Unavailable SURJIT DAVID, ERIC Unavailable Unavailable Payers Payer Name Policy Type Policy Number Effective Date Expira tion Date MEDICAID [facility] [id number] Problems Condition Name Condition Details Condition Category Status Onset Date Resolution Date Last Treatment Date Treating Clinician Comments ESSENTIAL (PRIMARY) HYPERTENSION Active 09-21 00:00: 00 ATHSCL HEART DISEASE OF [place] CORONARY ARTERY W/O ANG PCTRS Active 09-21 [...] CIGARETTES, UNCOMPLICATE D Active 09-21 00:00: 00 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 09-21 00:00: 00 HALF-WAY (CURRENT) USE OF ANTITHROMBOT ICS/ANTIPLAT ELETS Active [...] release 24 hr 805 00:00: 00 Yes [id number] 60 mg AT BEDTIME 60 mg AT BEDTIME (route: oral) Med Classific ation: Cardiovas cular Therapy Agents oxycodone 5 mg tablet 09-04 00:00: 00 11-19 23:59 :00 No [id number] Unavailable 5 mg FIVE TIMES DAILY NEEDED 5 mg FIVE TIMES DAILY NEEDED (route: oral) Med Classific ation: Analgesic , Anti-infl ammatory or Antipyret ic gabapentin 600 mg tablet 09-03 00:00: 00 09-25 23:59 :00 No [id number] 600 mg 2 TIMES DAILY 600 mg 2 TIMES DAILY (route: oral) Med Classific ation: Central Nervous System Agents nicotine 21 mg/24 hr daily transdermal patch 08-30 00:00: 00 Yes [id number] Unavailable 21 mg DAILY 21 mg DAILY (route: transderma l) Med Classific ation: Chemical Dependenc y, Agents to Treat Alcohol Prep Pads 08-29 00:00: 00 05-18 23:59 :00 No [id number] 1 pads, medicat ed DIRECTED THREE TIMES DAILY AND NEEDED 1 pads, medicated DIRECTED THREE TIMES DAILY AND NEEDED (route: topical) Med Classific ation: Antisepti cs and Disinfect ants amitriptyli ne 50 mg tablet 08-29 00:00: 00 09-22 23:59 :00 No [id number] Unavailable 50 mg AT BEDTIME 50 mg AT BEDTIME (route: oral) Med Classific ation: Central Nervous System Agents Asmanex HFA 100 mcg/actuati on aerosol inhaler 08-29 00:00: 00 Yes [id number] 2 puff TWICE DAILY 2 puff TWICE DAILY (route: inhalation ) Med Classific ation: Respirato ry Therapy Agents atorvastati n 80 mg tablet 08-29 00:00: 00 Yes [id number] Unavailable 80 mg BEDTIME 80 mg BEDTIME (route: oral) Med Classific ation: Cardiovas cular Therapy Agents carvedilol 25 mg tablet 08-29 00:00: 00 Yes [id number] Unavailable 25 mg TWICE DAILY 25 mg TWICE DAILY (route: oral) Med Classific ation: Cardiovas cular Therapy Agents clopidogrel 75 mg tablet 08-29 00:00: 00 Yes [id number] 75 mg EVERY AM 75 mg EVERY AM (route: oral) Med Classific ation: Hematolog ical Agents docusate sodium 100 mg capsule 08-29 00:00: 00 09-25 23:59 :00 No [id number] Unavailable 100 mg TWICE DAILY 100 mg TWICE DAILY (route: oral) Med Classific ation: Gastroint estinal Therapy Agents escitalopra m 20 mg tablet 08-29 00:00: 00 Yes [id number] Unavailable 20 mg EVERY PM 20 mg EVERY PM (route: oral) Med Classific ation: Central Nervous System Agents FeroSul 325 mg (65 mg iron) tablet 08-29 00:00: 00 09-25 23:59 :00 No [id number] Unavailable 325 mg TWICE DAILY IN THE MORNING AND AT BEDTIME 325 mg TWICE DAILY IN THE MORNING AND AT BEDTIME (route: oral) Med Classific ation: Electroly te Balance-N utritiona l Products gabapentin 800 mg tablet 08-29 00:00: 00 09-22 23:59 :00 No [id number] 800 mg 2 TIMES DAILY 800 mg 2 TIMES DAILY (route: oral) Med Classific ation: Central Nervous System Agents hydralazine 25 mg tablet 08-29 00:00: 00 09-22 23:59 :00 No [id number] Unavailable 25 mg 3 TIMES DAILY 25 mg 3 TIMES DAILY (route: oral) Med Classific ation: Cardiovas cular Therapy Agents hydralazine 50 mg tablet 08-29 00:00: 00 09-25 23:59 :00 No [id number] Unavailable 50 mg THREE TIMES DAILY IN THE MORNING AT 50 mg THREE TIMES DAILY IN THE MORNING AT (route: oral) Med Classific ation: Cardiovas cular Therapy Agents mirtazapine 45 mg tablet 08-29 00:00: 00 Yes [id number] Unavailable 45 mg AT BEDTIME 45 mg AT BEDTIME (route: oral) Med Classific ation: Central Nervous System Agents omeprazole 20 mg capsule,del ayed release 08-29 00:00: 00 Yes [id number] 20 mg TWICE DAILY 20 mg TWICE DAILY (route: oral) Med Classific ation: Gastroint estinal Therapy Agents lisinopril 40 mg tablet 09-25 00:00: 00 Yes [id number] 40 mg DAILY 40 mg DAILY (route: oral) Med Classific ation: Cardiovas cular Therapy Agents metformin 1,000 mg tablet 09-25 00:00: 00 09-22 23:59 :00 No [id number] 1000 mg 2 TIMES DAILY 1000 mg 2 TIMES DAILY (route: oral) Med Classific ation: Endocrine multivitami n tablet 09-25 00:00: 00 Yes [id number] 1 tablet DAILY 1 tablet DAILY (route: oral) Med Classific ation: Electroly te Balance-N utritiona l Products nifedipine ER 60 mg tablet,exte nded release 09-25 00:00: 00 Yes [id number] 60 mg EVERY PM 60 mg EVERY PM (route: oral) Med Classific ation: Cardiovas cular Therapy Agents pioglitazon e 15 mg tablet 09-25 00:00: 00 Yes [id number] 15 mg DAILY 15 mg DAILY (route: oral) Med Classific ation: Endocrine Tresiba FlexTouch U-100 insulin 100 unit/mL (3 mL) subcutaneou s pen 09-25 00:00: 00 Yes [id number] 10 In unit DAILY 10 In unit DAILY (route: subcutaneo ) Med Classific ation: Endocrine aspirin 81 mg tablet 09-22 00:00: 00 Yes [id number] 1 tablet DAILY 1 tablet DAILY (route: oral) Med Classific ation: Hematolog ical Agents docusate sodium 100 mg capsule 09-22 00:00: 00 Yes [id number] 1 capsule 2 TIMES DAILY 1 capsule 2 TIMES DAILY (route: oral) Med Classific ation: Gastroint estinal Therapy Agents ferrous sulfate 325 mg (65 mg iron) tablet 09-22 00:00: 00 Yes [id number] 1 tablet 2 TIMES DAILY 1 tablet 2 TIMES DAILY (route: oral) Med Classific ation: Electroly te Balance-N utritiona l Products isosorbide mononitrate ER 30 mg tablet,exte nded release 24 hr 09-22 00:00: 00 Yes [id number] 1 tablet DAILY 1 tablet DAILY (route: [...] PRE-POUR MEDICATION PER MEDICATION LIST TILL NEXT HALFWAY VISIT [code = SKILLED NURSE TO PRE-POUR MEDICATION PER MEDICATION LIST TILL NEXT HALFWAY VISIT] Future Scheduled Test PATIENT MA Y [...] MEDICATIONS DAILY AND PRE-POUR MEDICATIONS TILL NEXT HALFWAY VISIT PER MEDICATION LIST. [code = SKILLED NURSE TO ADMINISTER MEDICATIONS DAILY AND PRE-POUR MEDICATIONS TILL NEXT HALFWAY VISIT PER MEDICATION LIST.] Future Scheduled Test [...] AWARENESS FOR SAFETY AND WILL NOTIFY CLINICAL INTERIOR DESIGN DIRECTOR AND PHYSICIAN/PROVIDER WITH ANY CHANGE IN CONDITION. [code = SKILLED NURSE WILL MAINTAIN SITUATIONAL AWARENESS FOR SAFETY AND WILL NOTIFY CLINICAL INTERIOR DESIGN DIRECTOR AND PHYSICIAN/PROVIDER WITH ANY CHANGE IN CONDITION.] [...] CARE WILL BE ESTABLISHED THAT MEETS PATIENT'S HALFWAY NEEDS AND INCLUDES PATIENT GOAL FOR HOME [...] 00:00:00 Outpatient RECERTIFIC ATION ERIC [facility] [id number] 48.39
--- OUTSIDE RECORDS SUMMARY | 2025-01-16 19:00 | XMS_ITS | Clinical Summary ---
Author Organization Unknown Care Team Providers Care Barrel Charrer Helper Name Role Phone ADILIA FELIPE, VIOLETA Unavailable Unavailable SURJIT DAVID, ERIC Unavailable Unavailable Payers Payer Name Policy Type Policy Number Effective Date Expira tion Date MEDICAID [facility] [id number] Problems Condition Name Condition Details Condition Category Status Onset Date Resolution Date Last Treatment Date Treating Clinician Comments ESSENTIAL (PRIMARY) HYPERTENSION Active 09-21 00:00: 00 ATHSCL HEART DISEASE OF [place] CORONARY ARTERY W/O ANG PCTRS Active 09-21 [...] CIGARETTES, UNCOMPLICATE D Active 09-21 00:00: 00 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 09-21 00:00: 00 FDC (CURRENT) USE OF ANTITHROMBOT ICS/ANTIPLAT ELETS Active [...] release 24 hr 805 00:00: 00 Yes [id number] 60 mg AT BEDTIME 60 mg AT BEDTIME (route: oral) Med Classific ation: Cardiovas cular Therapy Agents oxycodone 5 mg tablet 09-04 00:00: 00 11-19 23:59 :00 No [id number] Unavailable 5 mg FIVE TIMES DAILY NEEDED 5 mg FIVE TIMES DAILY NEEDED (route: oral) Med Classific ation: Analgesic , Anti-infl ammatory or Antipyret ic gabapentin 600 mg tablet 09-03 00:00: 00 09-25 23:59 :00 No [id number] 600 mg 2 TIMES DAILY 600 mg 2 TIMES DAILY (route: oral) Med Classific ation: Central Nervous System Agents nicotine 21 mg/24 hr daily transdermal patch 08-30 00:00: 00 Yes [id number] Unavailable 21 mg DAILY 21 mg DAILY (route: transderma l) Med Classific ation: Chemical Dependenc y, Agents to Treat Alcohol Prep Pads 08-29 00:00: 00 05-18 23:59 :00 No [id number] 1 pads, medicat ed DIRECTED THREE TIMES DAILY AND NEEDED 1 pads, medicated DIRECTED THREE TIMES DAILY AND NEEDED (route: topical) Med Classific ation: Antisepti cs and Disinfect ants amitriptyli ne 50 mg tablet 08-29 00:00: 00 09-22 23:59 :00 No [id number] Unavailable 50 mg AT BEDTIME 50 mg AT BEDTIME (route: oral) Med Classific ation: Central Nervous System Agents Asmanex HFA 100 mcg/actuati on aerosol inhaler 08-29 00:00: 00 Yes [id number] 2 puff TWICE DAILY 2 puff TWICE DAILY (route: inhalation ) Med Classific ation: Respirato ry Therapy Agents atorvastati n 80 mg tablet 08-29 00:00: 00 Yes [id number] Unavailable 80 mg BEDTIME 80 mg BEDTIME (route: oral) Med Classific ation: Cardiovas cular Therapy Agents carvedilol 25 mg tablet 08-29 00:00: 00 Yes [id number] Unavailable 25 mg TWICE DAILY 25 mg TWICE DAILY (route: oral) Med Classific ation: Cardiovas cular Therapy Agents clopidogrel 75 mg tablet 08-29 00:00: 00 Yes [id number] 75 mg EVERY AM 75 mg EVERY AM (route: oral) Med Classific ation: Hematolog ical Agents docusate sodium 100 mg capsule 08-29 00:00: 00 09-25 23:59 :00 No [id number] Unavailable 100 mg TWICE DAILY 100 mg TWICE DAILY (route: oral) Med Classific ation: Gastroint estinal Therapy Agents escitalopra m 20 mg tablet 08-29 00:00: 00 Yes [id number] Unavailable 20 mg EVERY PM 20 mg EVERY PM (route: oral) Med Classific ation: Central Nervous System Agents FeroSul 325 mg (65 mg iron) tablet 08-29 00:00: 00 09-25 23:59 :00 No [id number] Unavailable 325 mg TWICE DAILY IN THE MORNING AND AT BEDTIME 325 mg TWICE DAILY IN THE MORNING AND AT BEDTIME (route: oral) Med Classific ation: Electroly te Balance-N utritiona l Products gabapentin 800 mg tablet 08-29 00:00: 00 09-22 23:59 :00 No [id number] 800 mg 2 TIMES DAILY 800 mg 2 TIMES DAILY (route: oral) Med Classific ation: Central Nervous System Agents hydralazine 25 mg tablet 08-29 00:00: 00 09-22 23:59 :00 No [id number] Unavailable 25 mg 3 TIMES DAILY 25 mg 3 TIMES DAILY (route: oral) Med Classific ation: Cardiovas cular Therapy Agents hydralazine 50 mg tablet 08-29 00:00: 00 09-25 23:59 :00 No [id number] Unavailable 50 mg THREE TIMES DAILY IN THE MORNING AT 50 mg THREE TIMES DAILY IN THE MORNING AT (route: oral) Med Classific ation: Cardiovas cular Therapy Agents mirtazapine 45 mg tablet 08-29 00:00: 00 Yes [id number] Unavailable 45 mg AT BEDTIME 45 mg AT BEDTIME (route: oral) Med Classific ation: Central Nervous System Agents omeprazole 20 mg capsule,del ayed release 08-29 00:00: 00 Yes [id number] 20 mg TWICE DAILY 20 mg TWICE DAILY (route: oral) Med Classific ation: Gastroint estinal Therapy Agents lisinopril 40 mg tablet 09-25 00:00: 00 Yes [id number] 40 mg DAILY 40 mg DAILY (route: oral) Med Classific ation: Cardiovas cular Therapy Agents metformin 1,000 mg tablet 09-25 00:00: 00 09-22 23:59 :00 No [id number] 1000 mg 2 TIMES DAILY 1000 mg 2 TIMES DAILY (route: oral) Med Classific ation: Endocrine multivitami n tablet 09-25 00:00: 00 Yes [id number] 1 tablet DAILY 1 tablet DAILY (route: oral) Med Classific ation: Electroly te Balance-N utritiona l Products nifedipine ER 60 mg tablet,exte nded release 09-25 00:00: 00 Yes [id number] 60 mg EVERY PM 60 mg EVERY PM (route: oral) Med Classific ation: Cardiovas cular Therapy Agents pioglitazon e 15 mg tablet 09-25 00:00: 00 Yes [id number] 15 mg DAILY 15 mg DAILY (route: oral) Med Classific ation: Endocrine Tresiba FlexTouch U-100 insulin 100 unit/mL (3 mL) subcutaneou s pen 09-25 00:00: 00 Yes [id number] 10 In unit DAILY 10 In unit DAILY (route: subcutaneo ) Med Classific ation: Endocrine aspirin 81 mg tablet 09-22 00:00: 00 Yes [id number] 1 tablet DAILY 1 tablet DAILY (route: oral) Med Classific ation: Hematolog ical Agents docusate sodium 100 mg capsule 09-22 00:00: 00 Yes [id number] 1 capsule 2 TIMES DAILY 1 capsule 2 TIMES DAILY (route: oral) Med Classific ation: Gastroint estinal Therapy Agents ferrous sulfate 325 mg (65 mg iron) tablet 09-22 00:00: 00 Yes [id number] 1 tablet 2 TIMES DAILY 1 tablet 2 TIMES DAILY (route: oral) Med Classific ation: Electroly te Balance-N utritiona l Products isosorbide mononitrate ER 30 mg tablet,exte nded release 24 hr 09-22 00:00: 00 Yes [id number] 1 tablet DAILY 1 tablet DAILY (route: [...] AWARENESS FOR SAFETY AND WILL NOTIFY CLINICAL ONCOLOGY SOCIAL WORKER AND PHYSICIAN/PROVIDER WITH ANY CHANGE IN CONDITION. [code = SKILLED NURSE WILL MAINTAIN SITUATIONAL AWARENESS FOR SAFETY AND WILL NOTIFY CLINICAL ONCOLOGY SOCIAL WORKER AND PHYSICIAN/PROVIDER WITH ANY CHANGE IN [...] End Date/Time Encounter Type Admission Type [facility]ending [facility] Care Department Encounter ID Discharge Date Discharge Status Discharge Condition Discharge Reason Percent Goals Met 2024-11-19 00:00:00 2025-01-17 00:00:00 Outpatient RECERTIFIC ATION ERIC EDDY [facility] [id number] 48.39
--- OUTSIDE RECORDS SUMMARY | 2025-01-16 19:00 | XMS_ITS | Clinical Summary ---
Author Organization Unknown Care Team Providers Care Sales Administration Manager Name Role Phone ADILIA FELIPE, VIOLETA Unavailable Unavailable SURJIT DAVID, ERIC Unavailable Unavailable Payers Payer Name Policy Type Policy Number Effective Date Expira tion Date MEDICAID [facility] [id number] Problems Condition Name Condition Details Condition Category Status Onset Date Resolution Date Last Treatment Date Treating Clinician Comments ESSENTIAL (PRIMARY) HYPERTENSION Active 09-21 00:00: 00 ATHSCL HEART DISEASE OF [place] CORONARY ARTERY W/O ANG PCTRS Active 09-21 [...] CIGARETTES, UNCOMPLICATE D Active 09-21 00:00: 00 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 09-21 [...] release 24 hr 805 00:00: 00 Yes [id number] 60 mg AT BEDTIME 60 mg AT BEDTIME (route: oral) Med Classific ation: Cardiovas cular Therapy Agents oxycodone 5 mg tablet 09-04 00:00: 00 11-19 23:59 :00 No [id number] Unavailable 5 mg FIVE TIMES DAILY NEEDED 5 mg FIVE TIMES DAILY NEEDED (route: oral) Med Classific ation: Analgesic , Anti-infl ammatory or Antipyret ic gabapentin 600 mg tablet 09-03 00:00: 00 09-25 23:59 :00 No [id number] 600 mg 2 TIMES DAILY 600 mg 2 TIMES DAILY (route: oral) Med Classific ation: Central Nervous System Agents nicotine 21 mg/24 hr daily transdermal patch 08-30 00:00: 00 Yes [id number] Unavailable 21 mg DAILY 21 mg DAILY (route: transderma l) Med Classific ation: Chemical Dependenc y, Agents to Treat Alcohol Prep Pads 08-29 00:00: 00 05-18 23:59 :00 No [id number] 1 pads, medicat ed DIRECTED THREE TIMES DAILY AND NEEDED 1 pads, medicated DIRECTED THREE TIMES DAILY AND NEEDED (route: topical) Med Classific ation: Antisepti cs and Disinfect ants amitriptyli ne 50 mg tablet 08-29 00:00: 00 09-22 23:59 :00 No [id number] Unavailable 50 mg AT BEDTIME 50 mg AT BEDTIME (route: oral) Med Classific ation: Central Nervous System Agents Asmanex HFA 100 mcg/actuati on aerosol inhaler 08-29 00:00: 00 Yes [id number] 2 puff TWICE DAILY 2 puff TWICE DAILY (route: inhalation ) Med Classific ation: Respirato ry Therapy Agents atorvastati n 80 mg tablet 08-29 00:00: 00 Yes [id number] Unavailable 80 mg BEDTIME 80 mg BEDTIME (route: oral) Med Classific ation: Cardiovas cular Therapy Agents carvedilol 25 mg tablet 08-29 00:00: 00 Yes [id number] Unavailable 25 mg TWICE DAILY 25 mg TWICE DAILY (route: oral) Med Classific ation: Cardiovas cular Therapy Agents clopidogrel 75 mg tablet 08-29 00:00: 00 Yes [id number] 75 mg EVERY AM 75 mg EVERY AM (route: oral) Med Classific ation: Hematolog ical Agents docusate sodium 100 mg capsule 08-29 00:00: 00 09-25 23:59 :00 No [id number] Unavailable 100 mg TWICE DAILY 100 mg TWICE DAILY (route: oral) Med Classific ation: Gastroint estinal Therapy Agents escitalopra m 20 mg tablet 08-29 00:00: 00 Yes [id number] Unavailable 20 mg EVERY PM 20 mg EVERY PM (route: oral) Med Classific ation: Central Nervous System Agents FeroSul 325 mg (65 mg iron) tablet 08-29 00:00: 00 09-25 23:59 :00 No [id number] Unavailable 325 mg TWICE DAILY IN THE MORNING AND AT BEDTIME 325 mg TWICE DAILY IN THE MORNING AND AT BEDTIME (route: oral) Med Classific ation: Electroly te Balance-N utritiona l Products gabapentin 800 mg tablet 08-29 00:00: 00 09-22 23:59 :00 No [id number] 800 mg 2 TIMES DAILY 800 mg 2 TIMES DAILY (route: oral) Med Classific ation: Central Nervous System Agents hydralazine 25 mg tablet 08-29 00:00: 00 09-22 23:59 :00 No [id number] Unavailable 25 mg 3 TIMES DAILY 25 mg 3 TIMES DAILY (route: oral) Med Classific ation: Cardiovas cular Therapy Agents hydralazine 50 mg tablet 08-29 00:00: 00 09-25 23:59 :00 No [id number] Unavailable 50 mg THREE TIMES DAILY IN THE MORNING AT 50 mg THREE TIMES DAILY IN THE MORNING AT (route: oral) Med Classific ation: Cardiovas cular Therapy Agents mirtazapine 45 mg tablet 08-29 00:00: 00 Yes [id number] Unavailable 45 mg AT BEDTIME 45 mg AT BEDTIME (route: oral) Med Classific ation: Central Nervous System Agents omeprazole 20 mg capsule,del ayed release 08-29 00:00: 00 Yes [id number] 20 mg TWICE DAILY 20 mg TWICE DAILY (route: oral) Med Classific ation: Gastroint estinal Therapy Agents lisinopril 40 mg tablet 09-25 00:00: 00 Yes [id number] 40 mg DAILY 40 mg DAILY (route: oral) Med Classific ation: Cardiovas cular Therapy Agents metformin 1,000 mg tablet 09-25 00:00: 00 09-22 23:59 :00 No [id number] 1000 mg 2 TIMES DAILY 1000 mg 2 TIMES DAILY (route: oral) Med Classific ation: Endocrine multivitami n tablet 09-25 00:00: 00 Yes [id number] 1 tablet DAILY 1 tablet DAILY (route: oral) Med Classific ation: Electroly te Balance-N utritiona l Products nifedipine ER 60 mg tablet,exte nded release 09-25 00:00: 00 Yes [id number] 60 mg EVERY PM 60 mg EVERY PM (route: oral) Med Classific ation: Cardiovas cular Therapy Agents pioglitazon e 15 mg tablet 09-25 00:00: 00 Yes [id number] 15 mg DAILY 15 mg DAILY (route: oral) Med Classific ation: Endocrine Tresiba FlexTouch U-100 insulin 100 unit/mL (3 mL) subcutaneou s pen 09-25 00:00: 00 Yes [id number] 10 In unit DAILY 10 In unit DAILY (route: subcutaneo ) Med Classific ation: Endocrine aspirin 81 mg tablet 09-22 00:00: 00 Yes [id number] 1 tablet DAILY 1 tablet DAILY (route: oral) Med Classific ation: Hematolog ical Agents docusate sodium 100 mg capsule 09-22 00:00: 00 Yes [id number] 1 capsule 2 TIMES DAILY 1 capsule 2 TIMES DAILY (route: oral) Med Classific ation: Gastroint estinal Therapy Agents ferrous sulfate 325 mg (65 mg iron) tablet 09-22 00:00: 00 Yes [id number] 1 tablet 2 TIMES DAILY 1 tablet 2 TIMES DAILY (route: oral) Med Classific ation: Electroly te Balance-N utritiona l Products isosorbide mononitrate ER 30 mg tablet,exte nded release 24 hr 09-22 00:00: 00 Yes [id number] 1 tablet DAILY 1 tablet DAILY (route: [...] PRE-POUR MEDICATION PER MEDICATION LIST TILL NEXT PENITENTIARY VISIT [code = SKILLED NURSE TO PRE-POUR MEDICATION PER MEDICATION LIST TILL NEXT PENITENTIARY VISIT] Future Scheduled Test PATIENT MA Y [...] MEDICATIONS DAILY AND PRE-POUR MEDICATIONS TILL NEXT PENITENTIARY VISIT PER MEDICATION LIST. [code = SKILLED NURSE TO ADMINISTER MEDICATIONS DAILY AND PRE-POUR MEDICATIONS TILL NEXT PENITENTIARY VISIT PER MEDICATION LIST.] Future Scheduled Test [...] AWARENESS FOR SAFETY AND WILL NOTIFY CLINICAL BLOW MOLDING MACHINE TENDER AND PHYSICIAN/PROVIDER WITH ANY CHANGE IN CONDITION. [code = SKILLED NURSE WILL MAINTAIN SITUATIONAL AWARENESS FOR SAFETY AND WILL NOTIFY CLINICAL BLOW MOLDING MACHINE TENDER AND PHYSICIAN/PROVIDER WITH ANY CHANGE IN CONDITION.] [...] CARE WILL BE ESTABLISHED THAT MEETS PATIENT'S PENITENTIARY NEEDS AND INCLUDES PATIENT GOAL FOR HOME [...] 2025-01-17 00:00:00 Outpatient RECERTIFIC ATION ERIC EDDY [facility] [id number] 48.39
--- OUTSIDE RECORDS SUMMARY | 2025-01-16 19:00 | XMS_ITS | Clinical Summary ---
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 Role Phone ADILIA FELIPE, VIOLETA Unavailable Unavailable SURJIT DAVID, ERIC Unavailable Unavailable Payers Payer Name Policy Type Policy Number Effective Date Expira tion Date MEDICAID [facility] [id number] Problems Condition Name Condition Details Condition Category Status Onset Date Resolution Date Last Treatment Date Treating Clinician Comments ESSENTIAL (PRIMARY) HYPERTENSION Active 09-21 00:00: 00 ATHSCL HEART DISEASE OF [place] CORONARY ARTERY W/O ANG PCTRS Active 09-21 [...] CIGARETTES, UNCOMPLICATE D Active 09-21 00:00: 00 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 09-21 00:00: 00 JAIL (CURRENT) USE OF ANTITHROMBOT ICS/ANTIPLAT ELETS Active [...] release 24 hr 805 00:00: 00 Yes [id number] 60 mg AT BEDTIME 60 mg AT BEDTIME (route: oral) Med Classific ation: Cardiovas cular Therapy Agents oxycodone 5 mg tablet 09-04 00:00: 00 11-19 23:59 :00 No [id number] Unavailable 5 mg FIVE TIMES DAILY NEEDED 5 mg FIVE TIMES DAILY NEEDED (route: oral) Med Classific ation: Analgesic , Anti-infl ammatory or Antipyret ic gabapentin 600 mg tablet 09-03 00:00: 00 09-25 23:59 :00 No [id number] 600 mg 2 TIMES DAILY 600 mg 2 TIMES DAILY (route: oral) Med Classific ation: Central Nervous System Agents nicotine 21 mg/24 hr daily transdermal patch 08-30 00:00: 00 Yes [id number] Unavailable 21 mg DAILY 21 mg DAILY (route: transderma l) Med Classific ation: Chemical Dependenc y, Agents to Treat Alcohol Prep Pads 08-29 00:00: 00 05-18 23:59 :00 No [id number] 1 pads, medicat ed DIRECTED THREE TIMES DAILY AND NEEDED 1 pads, medicated DIRECTED THREE TIMES DAILY AND NEEDED (route: topical) Med Classific ation: Antisepti cs and Disinfect ants amitriptyli ne 50 mg tablet 08-29 00:00: 00 09-22 23:59 :00 No [id number] Unavailable 50 mg AT BEDTIME 50 mg AT BEDTIME (route: oral) Med Classific ation: Central Nervous System Agents Asmanex HFA 100 mcg/actuati on aerosol inhaler 08-29 00:00: 00 Yes [id number] 2 puff TWICE DAILY 2 puff TWICE DAILY (route: inhalation ) Med Classific ation: Respirato ry Therapy Agents atorvastati n 80 mg tablet 08-29 00:00: 00 Yes [id number] Unavailable 80 mg BEDTIME 80 mg BEDTIME (route: oral) Med Classific ation: Cardiovas cular Therapy Agents carvedilol 25 mg tablet 08-29 00:00: 00 Yes [id number] Unavailable 25 mg TWICE DAILY 25 mg TWICE DAILY (route: oral) Med Classific ation: Cardiovas cular Therapy Agents clopidogrel 75 mg tablet 08-29 00:00: 00 Yes [id number] 75 mg EVERY AM 75 mg EVERY AM (route: oral) Med Classific ation: Hematolog ical Agents docusate sodium 100 mg capsule 08-29 00:00: 00 09-25 23:59 :00 No [id number] Unavailable 100 mg TWICE DAILY 100 mg TWICE DAILY (route: oral) Med Classific ation: Gastroint estinal Therapy Agents escitalopra m 20 mg tablet 08-29 00:00: 00 Yes [id number] Unavailable 20 mg EVERY PM 20 mg EVERY PM (route: oral) Med Classific ation: Central Nervous System Agents FeroSul 325 mg (65 mg iron) tablet 08-29 00:00: 00 09-25 23:59 :00 No [id number] Unavailable 325 mg TWICE DAILY IN THE MORNING AND AT BEDTIME 325 mg TWICE DAILY IN THE MORNING AND AT BEDTIME (route: oral) Med Classific ation: Electroly te Balance-N utritiona l Products gabapentin 800 mg tablet 08-29 00:00: 00 09-22 23:59 :00 No [id number] 800 mg 2 TIMES DAILY 800 mg 2 TIMES DAILY (route: oral) Med Classific ation: Central Nervous System Agents hydralazine 25 mg tablet 08-29 00:00: 00 09-22 23:59 :00 No [id number] Unavailable 25 mg 3 TIMES DAILY 25 mg 3 TIMES DAILY (route: oral) Med Classific ation: Cardiovas cular Therapy Agents hydralazine 50 mg tablet 08-29 00:00: 00 09-25 23:59 :00 No [id number] Unavailable 50 mg THREE TIMES DAILY IN THE MORNING AT 50 mg THREE TIMES DAILY IN THE MORNING AT (route: oral) Med Classific ation: Cardiovas cular Therapy Agents mirtazapine 45 mg tablet 08-29 00:00: 00 Yes [id number] Unavailable 45 mg AT BEDTIME 45 mg AT BEDTIME (route: oral) Med Classific ation: Central Nervous System Agents omeprazole 20 mg capsule,del ayed release 08-29 00:00: 00 Yes [id number] 20 mg TWICE DAILY 20 mg TWICE DAILY (route: oral) Med Classific ation: Gastroint estinal Therapy Agents lisinopril 40 mg tablet 09-25 00:00: 00 Yes [id number] 40 mg DAILY 40 mg DAILY (route: oral) Med Classific ation: Cardiovas cular Therapy Agents metformin 1,000 mg tablet 09-25 00:00: 00 09-22 23:59 :00 No [id number] 1000 mg 2 TIMES DAILY 1000 mg 2 TIMES DAILY (route: oral) Med Classific ation: Endocrine multivitami n tablet 09-25 00:00: 00 Yes [id number] 1 tablet DAILY 1 tablet DAILY (route: oral) Med Classific ation: Electroly te Balance-N utritiona l Products nifedipine ER 60 mg tablet,exte nded release 09-25 00:00: 00 Yes [id number] 60 mg EVERY PM 60 mg EVERY PM (route: oral) Med Classific ation: Cardiovas cular Therapy Agents pioglitazon e 15 mg tablet 09-25 00:00: 00 Yes [id number] 15 mg DAILY 15 mg DAILY (route: oral) Med Classific ation: Endocrine Tresiba FlexTouch U-100 insulin 100 unit/mL (3 mL) subcutaneou s pen 09-25 00:00: 00 Yes [id number] 10 In unit DAILY 10 In unit DAILY (route: subcutaneo ) Med Classific ation: Endocrine aspirin 81 mg tablet 09-22 00:00: 00 Yes [id number] 1 tablet DAILY 1 tablet DAILY (route: oral) Med Classific ation: Hematolog ical Agents docusate sodium 100 mg capsule 09-22 00:00: 00 Yes [id number] 1 capsule 2 TIMES DAILY 1 capsule 2 TIMES DAILY (route: oral) Med Classific ation: Gastroint estinal Therapy Agents ferrous sulfate 325 mg (65 mg iron) tablet 09-22 00:00: 00 Yes [id number] 1 tablet 2 TIMES DAILY 1 tablet 2 TIMES DAILY (route: oral) Med Classific ation: Electroly te Balance-N utritiona l Products isosorbide mononitrate ER 30 mg tablet,exte nded release 24 hr 09-22 00:00: 00 Yes [id number] 1 tablet DAILY 1 tablet DAILY (route: [...] PRE-POUR MEDICATION PER MEDICATION LIST TILL NEXT SHELTER VISIT [code = SKILLED NURSE TO PRE-POUR MEDICATION PER MEDICATION LIST TILL NEXT SHELTER VISIT] Future Scheduled Test PATIENT MA Y [...] MEDICATIONS DAILY AND PRE-POUR MEDICATIONS TILL NEXT SHELTER VISIT PER MEDICATION LIST. [code = SKILLED NURSE TO ADMINISTER MEDICATIONS DAILY AND PRE-POUR MEDICATIONS TILL NEXT SHELTER VISIT PER MEDICATION LIST.] Future Scheduled Test [...] AWARENESS FOR SAFETY AND WILL NOTIFY CLINICAL WAX POT TENDER AND PHYSICIAN/PROVIDER WITH ANY CHANGE IN CONDITION. [code = SKILLED NURSE WILL MAINTAIN SITUATIONAL AWARENESS FOR SAFETY AND WILL NOTIFY CLINICAL WAX POT TENDER AND PHYSICIAN/PROVIDER WITH ANY CHANGE IN [...] CARE WILL BE ESTABLISHED THAT MEETS PATIENT'S SHELTER NEEDS AND INCLUDES PATIENT GOAL FOR HOME [...] ATION ERIC EDDY [facility] [id number] 48.39
--- OUTSIDE RECORDS SUMMARY | 2025-01-16 19:00 | XMS_ITS | Clinical Summary ---
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 Assistant Name Role Phone ADILIA FELIPE, VIOLETA Unavailable Unavailable SURIJT DAVID, ERIC Unavailable Unavailable Payers Payer Name Policy Type Policy Number Effective Date Expira tion Date MEDICAID [facility] [id number] Problems Condition Name Condition Details Condition Category Status Onset Date Resolution Date Last Treatment Date Treating Clinician Comments ESSENTIAL (PRIMARY) HYPERTENSION Active 09-21 00:00: 00 ATHSCL HEART DISEASE OF [place] CORONARY ARTERY W/O ANG PCTRS Active 09-21 [...] CIGARETTES, UNCOMPLICATE D Active 09-21 00:00: 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 09-21 [...] release 24 hr 805 00:00: 00 Yes [id number] 60 mg AT BEDTIME 60 mg AT BEDTIME (route: oral) Med Classific ation: Cardiovas cular Therapy Agents oxycodone 5 mg tablet 09-04 00:00: 00 11-19 23:59 :00 No [id number] Unavailable 5 mg FIVE TIMES DAILY NEEDED 5 mg FIVE TIMES DAILY NEEDED (route: oral) Med Classific ation: Analgesic , Anti-infl ammatory or Antipyret ic gabapentin 600 mg tablet 09-03 00:00: 00 09-25 23:59 :00 No [id number] 600 mg 2 TIMES DAILY 600 mg 2 TIMES DAILY (route: oral) Med Classific ation: Central Nervous System Agents nicotine 21 mg/24 hr daily transdermal patch 08-30 00:00: 00 Yes [id number] Unavailable 21 mg DAILY 21 mg DAILY (route: transderma l) Med Classific ation: Chemical Dependenc y, Agents to Treat Alcohol Prep Pads 08-29 00:00: 00 05-18 23:59 :00 No [id number] 1 pads, medicat ed DIRECTED THREE TIMES DAILY AND NEEDED 1 pads, medicated DIRECTED THREE TIMES DAILY AND NEEDED (route: topical) Med Classific ation: Antisepti cs and Disinfect ants amitriptyli ne 50 mg tablet 08-29 00:00: 00 09-22 23:59 :00 No [id number] Unavailable 50 mg AT BEDTIME 50 mg AT BEDTIME (route: oral) Med Classific ation: Central Nervous System Agents Asmanex HFA 100 mcg/actuati on aerosol inhaler 08-29 00:00: 00 Yes [id number] 2 puff TWICE DAILY 2 puff TWICE DAILY (route: inhalation ) Med Classific ation: Respirato ry Therapy Agents atorvastati n 80 mg tablet 08-29 00:00: 00 Yes [id number] Unavailable 80 mg BEDTIME 80 mg BEDTIME (route: oral) Med Classific ation: Cardiovas cular Therapy Agents carvedilol 25 mg tablet 08-29 00:00: 00 Yes [id number] Unavailable 25 mg TWICE DAILY 25 mg TWICE DAILY (route: oral) Med Classific ation: Cardiovas cular Therapy Agents clopidogrel 75 mg tablet 08-29 00:00: 00 Yes [id number] 75 mg EVERY AM 75 mg EVERY AM (route: oral) Med Classific ation: Hematolog ical Agents docusate sodium 100 mg capsule 08-29 00:00: 00 09-25 23:59 :00 No [id number] Unavailable 100 mg TWICE DAILY 100 mg TWICE DAILY (route: oral) Med Classific ation: Gastroint estinal Therapy Agents escitalopra m 20 mg tablet 08-29 00:00: 00 Yes [id number] Unavailable 20 mg EVERY PM 20 mg EVERY PM (route: oral) Med Classific ation: Central Nervous System Agents FeroSul 325 mg (65 mg iron) tablet 08-29 00:00: 00 09-25 23:59 :00 No [id number] Unavailable 325 mg TWICE DAILY IN THE MORNING AND AT BEDTIME 325 mg TWICE DAILY IN THE MORNING AND AT BEDTIME (route: oral) Med Classific ation: Electroly te Balance-N utritiona l Products gabapentin 800 mg tablet 08-29 00:00: 00 09-22 23:59 :00 No [id number] 800 mg 2 TIMES DAILY 800 mg 2 TIMES DAILY (route: oral) Med Classific ation: Central Nervous System Agents hydralazine 25 mg tablet 08-29 00:00: 00 09-22 23:59 :00 No [id number] Unavailable 25 mg 3 TIMES DAILY 25 mg 3 TIMES DAILY (route: oral) Med Classific ation: Cardiovas cular Therapy Agents hydralazine 50 mg tablet 08-29 00:00: 00 09-25 23:59 :00 No [id number] Unavailable 50 mg THREE TIMES DAILY IN THE MORNING AT 50 mg THREE TIMES DAILY IN THE MORNING AT (route: oral) Med Classific ation: Cardiovas cular Therapy Agents mirtazapine 45 mg tablet 08-29 00:00: 00 Yes [id number] Unavailable 45 mg AT BEDTIME 45 mg AT BEDTIME (route: oral) Med Classific ation: Central Nervous System Agents omeprazole 20 mg capsule,del ayed release 08-29 00:00: 00 Yes [id number] 20 mg TWICE DAILY 20 mg TWICE DAILY (route: oral) Med Classific ation: Gastroint estinal Therapy Agents lisinopril 40 mg tablet 09-25 00:00: 00 Yes [id number] 40 mg DAILY 40 mg DAILY (route: oral) Med Classific ation: Cardiovas cular Therapy Agents metformin 1,000 mg tablet 09-25 00:00: 00 09-22 23:59 :00 No [id number] 1000 mg 2 TIMES DAILY 1000 mg 2 TIMES DAILY (route: oral) Med Classific ation: Endocrine multivitami n tablet 09-25 00:00: 00 Yes [id number] 1 tablet DAILY 1 tablet DAILY (route: oral) Med Classific ation: Electroly te Balance-N utritiona l Products nifedipine ER 60 mg tablet,exte nded release 09-25 00:00: 00 Yes [id number] 60 mg EVERY PM 60 mg EVERY PM (route: oral) Med Classific ation: Cardiovas cular Therapy Agents pioglitazon e 15 mg tablet 09-25 00:00: 00 Yes [id number] 15 mg DAILY 15 mg DAILY (route: oral) Med Classific ation: Endocrine Tresiba FlexTouch U-100 insulin 100 unit/mL (3 mL) subcutaneou s pen 09-25 00:00: 00 Yes [id number] 10 In unit DAILY 10 In unit DAILY (route: subcutaneo ) Med Classific ation: Endocrine aspirin 81 mg tablet 09-22 00:00: 00 Yes [id number] 1 tablet DAILY 1 tablet DAILY (route: oral) Med Classific ation: Hematolog ical Agents docusate sodium 100 mg capsule 09-22 00:00: 00 Yes [id number] 1 capsule 2 TIMES DAILY 1 capsule 2 TIMES DAILY (route: oral) Med Classific ation: Gastroint estinal Therapy Agents ferrous sulfate 325 mg (65 mg iron) tablet 09-22 00:00: 00 Yes [id number] 1 tablet 2 TIMES DAILY 1 tablet 2 TIMES DAILY (route: oral) Med Classific ation: Electroly te Balance-N utritiona l Products isosorbide mononitrate ER 30 mg tablet,exte nded release 24 hr 09-22 00:00: 00 Yes [id number] 1 tablet DAILY 1 tablet DAILY (route: [...] AWARENESS FOR SAFETY AND WILL NOTIFY CLINICAL CABLEMAN AND PHYSICIAN/PROVIDER WITH ANY CHANGE IN CONDITION. [code = SKILLED NURSE WILL MAINTAIN SITUATIONAL AWARENESS FOR SAFETY AND WILL NOTIFY CLINICAL CABLEMAN AND PHYSICIAN/PROVIDER WITH ANY CHANGE IN CONDITION.] [...] Date/Time Encounter Type Admission Type Attending [facility] Care Department Encounter ID Discharge Date Discharge Status Discharge Condition Discharge Reason Percent Goals Met 2024-11-19 00:00:00 2025-01-17 00:00:00 Outpatient RECERTIFIC ATION ERIC EDDY [facility] [id number] 48.39
--- OUTSIDE RECORDS SUMMARY | 2025-01-16 19:00 | XMS_ITS | Clinical Summary ---
Author Organization Unknown Care Team Providers Care Automobile Rental Representative Name Role Phone ADILIA FELIPE, VIOLETA Unavailable Unavailable SURJIT DAVID, ERIC Unavailable Unavailable Payers Payer Name Policy Type Policy Number Effective Date Expira tion Date MEDICAID [facility] [id number] Problems Condition Name Condition Details Condition Category Status Onset Date Resolution Date Last Treatment Date Treating Clinician Comments ESSENTIAL (PRIMARY) HYPERTENSION Active 09-21 00:00: 00 ATHSCL HEART DISEASE OF [place] CORONARY ARTERY W/O ANG PCTRS Active 09-21 [...] CIGARETTES, UNCOMPLICATE D Active 09-21 00:00: 00 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 09-21 00:00: [...] release 24 hr 805 00:00: 00 Yes [id number] 60 mg AT BEDTIME 60 mg AT BEDTIME (route: oral) Med Classific ation: Cardiovas cular Therapy Agents oxycodone 5 mg tablet 09-04 00:00: 00 11-19 23:59 :00 No [id number] Unavailable 5 mg FIVE TIMES DAILY NEEDED 5 mg FIVE TIMES DAILY NEEDED (route: oral) Med Classific ation: Analgesic , Anti-infl ammatory or Antipyret ic gabapentin 600 mg tablet 09-03 00:00: 00 09-25 23:59 :00 No [id number] 600 mg 2 TIMES DAILY 600 mg 2 TIMES DAILY (route: oral) Med Classific ation: Central Nervous System Agents nicotine 21 mg/24 hr daily transdermal patch 08-30 00:00: 00 Yes [id number] Unavailable 21 mg DAILY 21 mg DAILY (route: transderma l) Med Classific ation: Chemical Dependenc y, Agents to Treat Alcohol Prep Pads 08-29 00:00: 00 05-18 23:59 :00 No [id number] 1 pads, medicat ed DIRECTED THREE TIMES DAILY AND NEEDED 1 pads, medicated DIRECTED THREE TIMES DAILY AND NEEDED (route: topical) Med Classific ation: Antisepti cs and Disinfect ants amitriptyli ne 50 mg tablet 08-29 00:00: 00 09-22 23:59 :00 No [id number] Unavailable 50 mg AT BEDTIME 50 mg AT BEDTIME (route: oral) Med Classific ation: Central Nervous System Agents Asmanex HFA 100 mcg/actuati on aerosol inhaler 08-29 00:00: 00 Yes [id number] 2 puff TWICE DAILY 2 puff TWICE DAILY (route: inhalation ) Med Classific ation: Respirato ry Therapy Agents atorvastati n 80 mg tablet 08-29 00:00: 00 Yes [id number] Unavailable 80 mg BEDTIME 80 mg BEDTIME (route: oral) Med Classific ation: Cardiovas cular Therapy Agents carvedilol 25 mg tablet 08-29 00:00: 00 Yes [id number] Unavailable 25 mg TWICE DAILY 25 mg TWICE DAILY (route: oral) Med Classific ation: Cardiovas cular Therapy Agents clopidogrel 75 mg tablet 08-29 00:00: 00 Yes [id number] 75 mg EVERY AM 75 mg EVERY AM (route: oral) Med Classific ation: Hematolog ical Agents docusate sodium 100 mg capsule 08-29 00:00: 00 09-25 23:59 :00 No [id number] Unavailable 100 mg TWICE DAILY 100 mg TWICE DAILY (route: oral) Med Classific ation: Gastroint estinal Therapy Agents escitalopra m 20 mg tablet 08-29 00:00: 00 Yes [id number] Unavailable 20 mg EVERY PM 20 mg EVERY PM (route: oral) Med Classific ation: Central Nervous System Agents FeroSul 325 mg (65 mg iron) tablet 08-29 00:00: 00 09-25 23:59 :00 No [id number] Unavailable 325 mg TWICE DAILY IN THE MORNING AND AT BEDTIME 325 mg TWICE DAILY IN THE MORNING AND AT BEDTIME (route: oral) Med Classific ation: Electroly te Balance-N utritiona l Products gabapentin 800 mg tablet 08-29 00:00: 00 09-22 23:59 :00 No [id number] 800 mg 2 TIMES DAILY 800 mg 2 TIMES DAILY (route: oral) Med Classific ation: Central Nervous System Agents hydralazine 25 mg tablet 08-29 00:00: 00 09-22 23:59 :00 No [id number] Unavailable 25 mg 3 TIMES DAILY 25 mg 3 TIMES DAILY (route: oral) Med Classific ation: Cardiovas cular Therapy Agents hydralazine 50 mg tablet 08-29 00:00: 00 09-25 23:59 :00 No [id number] Unavailable 50 mg THREE TIMES DAILY IN THE MORNING AT 50 mg THREE TIMES DAILY IN THE MORNING AT (route: oral) Med Classific ation: Cardiovas cular Therapy Agents mirtazapine 45 mg tablet 08-29 00:00: 00 Yes [id number] Unavailable 45 mg AT BEDTIME 45 mg AT BEDTIME (route: oral) Med Classific ation: Central Nervous System Agents omeprazole 20 mg capsule,del ayed release 08-29 00:00: 00 Yes [id number] 20 mg TWICE DAILY 20 mg TWICE DAILY (route: oral) Med Classific ation: Gastroint estinal Therapy Agents lisinopril 40 mg tablet 09-25 00:00: 00 Yes [id number] 40 mg DAILY 40 mg DAILY (route: oral) Med Classific ation: Cardiovas cular Therapy Agents metformin 1,000 mg tablet 09-25 00:00: 00 09-22 23:59 :00 No [id number] 1000 mg 2 TIMES DAILY 1000 mg 2 TIMES DAILY (route: oral) Med Classific ation: Endocrine multivitami n tablet 09-25 00:00: 00 Yes [id number] 1 tablet DAILY 1 tablet DAILY (route: oral) Med Classific ation: Electroly te Balance-N utritiona l Products nifedipine ER 60 mg tablet,exte nded release 09-25 00:00: 00 Yes [id number] 60 mg EVERY PM 60 mg EVERY PM (route: oral) Med Classific ation: Cardiovas cular Therapy Agents pioglitazon e 15 mg tablet 09-25 00:00: 00 Yes [id number] 15 mg DAILY 15 mg DAILY (route: oral) Med Classific ation: Endocrine Tresiba FlexTouch U-100 insulin 100 unit/mL (3 mL) subcutaneou s pen 09-25 00:00: 00 Yes [id number] 10 In unit DAILY 10 In unit DAILY (route: subcutaneo ) Med Classific ation: Endocrine aspirin 81 mg tablet 09-22 00:00: 00 Yes [id number] 1 tablet DAILY 1 tablet DAILY (route: oral) Med Classific ation: Hematolog ical Agents docusate sodium 100 mg capsule 09-22 00:00: 00 Yes [id number] 1 capsule 2 TIMES DAILY 1 capsule 2 TIMES DAILY (route: oral) Med Classific ation: Gastroint estinal Therapy Agents ferrous sulfate 325 mg (65 mg iron) tablet 09-22 00:00: 00 Yes [id number] 1 tablet 2 TIMES DAILY 1 tablet 2 TIMES DAILY (route: oral) Med Classific ation: Electroly te Balance-N utritiona l Products isosorbide mononitrate ER 30 mg tablet,exte nded release 24 hr 09-22 00:00: 00 Yes [id number] 1 tablet DAILY 1 tablet DAILY (route: [...] PRE-POUR MEDICATION PER MEDICATION LIST TILL NEXT [facility] VISIT [code = SKILLED NURSE TO PRE-POUR MEDICATION PER MEDICATION LIST TILL NEXT [facility] VISIT] Future Scheduled Test PATIENT MA Y [...] MEDICATIONS DAILY AND PRE-POUR MEDICATIONS TILL NEXT [facility] VISIT PER MEDICATION LIST. [code = SKILLED NURSE TO ADMINISTER MEDICATIONS DAILY AND PRE-POUR MEDICATIONS TILL NEXT [facility] VISIT PER MEDICATION LIST.] Future Scheduled Test [...] AWARENESS FOR SAFETY AND WILL NOTIFY CLINICAL FIRE PROTECTION ENGINEERING TECHNICIAN AND PHYSICIAN/PROVIDER WITH ANY CHANGE IN CONDITION. [code = SKILLED NURSE WILL MAINTAIN SITUATIONAL AWARENESS FOR SAFETY AND WILL NOTIFY CLINICAL FIRE PROTECTION ENGINEERING TECHNICIAN AND PHYSICIAN/PROVIDER WITH ANY CHANGE IN [...] CARE WILL BE ESTABLISHED THAT MEETS PATIENT'S [facility] NEEDS AND INCLUDES PATIENT GOAL FOR HOME [...] 2025-01-17 00:00:00 Outpatient RECERTIFIC ATION ERIC EDDY [facility] [id number] 48.39
--- OUTSIDE RECORDS SUMMARY | 2025-01-16 19:00 | XMS_ITS | Clinical Summary ---
Author Organization Unknown Care Team Providers Care Entry Level Management Name Role Phone ADILIA FELIPE, VIOLETA Unavailable Unavailable SURJIT DAVID, ERIC Unavailable Unavailable Payers Payer Name Policy Type Policy Number Effective Date Expira tion Date MEDICAID [facility] [id number] Problems Condition Name Condition Details Condition Category Status Onset Date Resolution Date Last Treatment Date Treating Clinician Comments ESSENTIAL (PRIMARY) HYPERTENSION Active 09-21 00:00: 00 ATHSCL HEART DISEASE OF [place] CORONARY ARTERY W/O ANG PCTRS Active 09-21 [...] CIGARETTES, UNCOMPLICATE D Active 09-21 00:00: 00 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 09-21 00:00: [...] release 24 hr 805 00:00: 00 Yes [id number] 60 mg AT BEDTIME 60 mg AT BEDTIME (route: oral) Med Classific ation: Cardiovas cular Therapy Agents oxycodone 5 mg tablet 09-04 00:00: 00 11-19 23:59 :00 No [id number] Unavailable 5 mg FIVE TIMES DAILY NEEDED 5 mg FIVE TIMES DAILY NEEDED (route: oral) Med Classific ation: Analgesic , Anti-infl ammatory or Antipyret ic gabapentin 600 mg tablet 09-03 00:00: 00 09-25 23:59 :00 No [id number] 600 mg 2 TIMES DAILY 600 mg 2 TIMES DAILY (route: oral) Med Classific ation: Central Nervous System Agents nicotine 21 mg/24 hr daily transdermal patch 08-30 00:00: 00 Yes [id number] Unavailable 21 mg DAILY 21 mg DAILY (route: transderma l) Med Classific ation: Chemical Dependenc y, Agents to Treat Alcohol Prep Pads 08-29 00:00: 00 05-18 23:59 :00 No [id number] 1 pads, medicat ed DIRECTED THREE TIMES DAILY AND NEEDED 1 pads, medicated DIRECTED THREE TIMES DAILY AND NEEDED (route: topical) Med Classific ation: Antisepti cs and Disinfect ants amitriptyli ne 50 mg tablet 08-29 00:00: 00 09-22 23:59 :00 No [id number] Unavailable 50 mg AT BEDTIME 50 mg AT BEDTIME (route: oral) Med Classific ation: Central Nervous System Agents Asmanex HFA 100 mcg/actuati on aerosol inhaler 08-29 00:00: 00 Yes [id number] 2 puff TWICE DAILY 2 puff TWICE DAILY (route: inhalation ) Med Classific ation: Respirato ry Therapy Agents atorvastati n 80 mg tablet 08-29 00:00: 00 Yes [id number] Unavailable 80 mg BEDTIME 80 mg BEDTIME (route: oral) Med Classific ation: Cardiovas cular Therapy Agents carvedilol 25 mg tablet 08-29 00:00: 00 Yes [id number] Unavailable 25 mg TWICE DAILY 25 mg TWICE DAILY (route: oral) Med Classific ation: Cardiovas cular Therapy Agents clopidogrel 75 mg tablet 08-29 00:00: 00 Yes [id number] 75 mg EVERY AM 75 mg EVERY AM (route: oral) Med Classific ation: Hematolog ical Agents docusate sodium 100 mg capsule 08-29 00:00: 00 09-25 23:59 :00 No [id number] Unavailable 100 mg TWICE DAILY 100 mg TWICE DAILY (route: oral) Med Classific ation: Gastroint estinal Therapy Agents escitalopra m 20 mg tablet 08-29 00:00: 00 Yes [id number] Unavailable 20 mg EVERY PM 20 mg EVERY PM (route: oral) Med Classific ation: Central Nervous System Agents FeroSul 325 mg (65 mg iron) tablet 08-29 00:00: 00 09-25 23:59 :00 No [id number] Unavailable 325 mg TWICE DAILY IN THE MORNING AND AT BEDTIME 325 mg TWICE DAILY IN THE MORNING AND AT BEDTIME (route: oral) Med Classific ation: Electroly te Balance-N utritiona l Products gabapentin 800 mg tablet 08-29 00:00: 00 09-22 23:59 :00 No [id number] 800 mg 2 TIMES DAILY 800 mg 2 TIMES DAILY (route: oral) Med Classific ation: Central Nervous System Agents hydralazine 25 mg tablet 08-29 00:00: 00 09-22 23:59 :00 No [id number] Unavailable 25 mg 3 TIMES DAILY 25 mg 3 TIMES DAILY (route: oral) Med Classific ation: Cardiovas cular Therapy Agents hydralazine 50 mg tablet 08-29 00:00: 00 09-25 23:59 :00 No [id number] Unavailable 50 mg THREE TIMES DAILY IN THE MORNING AT 50 mg THREE TIMES DAILY IN THE MORNING AT (route: oral) Med Classific ation: Cardiovas cular Therapy Agents mirtazapine 45 mg tablet 08-29 00:00: 00 Yes [id number] Unavailable 45 mg AT BEDTIME 45 mg AT BEDTIME (route: oral) Med Classific ation: Central Nervous System Agents omeprazole 20 mg capsule,del ayed release 08-29 00:00: 00 Yes [id number] 20 mg TWICE DAILY 20 mg TWICE DAILY (route: oral) Med Classific ation: Gastroint estinal Therapy Agents lisinopril 40 mg tablet 09-25 00:00: 00 Yes [id number] 40 mg DAILY 40 mg DAILY (route: oral) Med Classific ation: Cardiovas cular Therapy Agents metformin 1,000 mg tablet 09-25 00:00: 00 09-22 23:59 :00 No [id number] 1000 mg 2 TIMES DAILY 1000 mg 2 TIMES DAILY (route: oral) Med Classific ation: Endocrine multivitami n tablet 09-25 00:00: 00 Yes [id number] 1 tablet DAILY 1 tablet DAILY (route: oral) Med Classific ation: Electroly te Balance-N utritiona l Products nifedipine ER 60 mg tablet,exte nded release 09-25 00:00: 00 Yes [id number] 60 mg EVERY PM 60 mg EVERY PM (route: oral) Med Classific ation: Cardiovas cular Therapy Agents pioglitazon e 15 mg tablet 09-25 00:00: 00 Yes [id number] 15 mg DAILY 15 mg DAILY (route: oral) Med Classific ation: Endocrine Tresiba FlexTouch U-100 insulin 100 unit/mL (3 mL) subcutaneou s pen 09-25 00:00: 00 Yes [id number] 10 In unit DAILY 10 In unit DAILY (route: subcutaneo ) Med Classific ation: Endocrine aspirin 81 mg tablet 09-22 00:00: 00 Yes [id number] 1 tablet DAILY 1 tablet DAILY (route: oral) Med Classific ation: Hematolog ical Agents docusate sodium 100 mg capsule 09-22 00:00: 00 Yes [id number] 1 capsule 2 TIMES DAILY 1 capsule 2 TIMES DAILY (route: oral) Med Classific ation: Gastroint estinal Therapy Agents ferrous sulfate 325 mg (65 mg iron) tablet 09-22 00:00: 00 Yes [id number] 1 tablet 2 TIMES DAILY 1 tablet 2 TIMES DAILY (route: oral) Med Classific ation: Electroly te Balance-N utritiona l Products isosorbide mononitrate ER 30 mg tablet,exte nded release 24 hr 09-22 00:00: 00 Yes [id number] 1 tablet DAILY 1 tablet DAILY (route: [...] AWARENESS FOR SAFETY AND WILL NOTIFY CLINICAL DAM ATTENDANT AND PHYSICIAN/PROVIDER WITH ANY CHANGE IN CONDITION. [code = SKILLED NURSE WILL MAINTAIN SITUATIONAL AWARENESS FOR SAFETY AND WILL NOTIFY CLINICAL DAM ATTENDANT AND PHYSICIAN/PROVIDER WITH ANY CHANGE IN CONDITION.] [...] End Date/Time Encounter Type Admission Type Attending [facility] Care Department Encounter ID Discharge Date Discharge Status Discharge Condition Discharge Reason Percent Goals Met 2024-11-19 00:00:00 2025-01-17 00:00:00 Outpatient RECERTIFIC ATION ERIC EDDY [facility] [id number] 48.39
--- OUTSIDE RECORDS SUMMARY | 2025-01-16 19:00 | XMS_ITS | Clinical Summary ---
Author Organization Unknown Care Team Providers Care Ripsawyer Name Role Phone ADILIA FELIPE, VIOLETA Unavailable Unavailable SURJIT DAVID, ERIC Unavailable Unavailable Payers Payer Name Policy Type Policy Number Effective Date Expira tion Date MEDICAID [facility] [id number] Problems Condition Name Condition Details Condition Category Status Onset Date Resolution Date Last Treatment Date Treating Clinician Comments ESSENTIAL (PRIMARY) HYPERTENSION Active 09-21 00:00: 00 ATHSCL HEART DISEASE OF [place] CORONARY ARTERY W/O ANG PCTRS Active 09-21 [...] CIGARETTES, UNCOMPLICATE D Active 09-21 00:00: 00 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 09-21 00:00: [...] release 24 hr 805 00:00: 00 Yes [id number] 60 mg AT BEDTIME 60 mg AT BEDTIME (route: oral) Med Classific ation: Cardiovas cular Therapy Agents oxycodone 5 mg tablet 09-04 00:00: 00 11-19 23:59 :00 No [id number] Unavailable 5 mg FIVE TIMES DAILY NEEDED 5 mg FIVE TIMES DAILY NEEDED (route: oral) Med Classific ation: Analgesic , Anti-infl ammatory or Antipyret ic gabapentin 600 mg tablet 09-03 00:00: 00 09-25 23:59 :00 No [id number] 600 mg 2 TIMES DAILY 600 mg 2 TIMES DAILY (route: oral) Med Classific ation: Central Nervous System Agents nicotine 21 mg/24 hr daily transdermal patch 08-30 00:00: 00 Yes [id number] Unavailable 21 mg DAILY 21 mg DAILY (route: transderma l) Med Classific ation: Chemical Dependenc y, Agents to Treat Alcohol Prep Pads 08-29 00:00: 00 05-18 23:59 :00 No [id number] 1 pads, medicat ed DIRECTED THREE TIMES DAILY AND NEEDED 1 pads, medicated DIRECTED THREE TIMES DAILY AND NEEDED (route: topical) Med Classific ation: Antisepti cs and Disinfect ants amitriptyli ne 50 mg tablet 08-29 00:00: 00 09-22 23:59 :00 No [id number] Unavailable 50 mg AT BEDTIME 50 mg AT BEDTIME (route: oral) Med Classific ation: Central Nervous System Agents Asmanex HFA 100 mcg/actuati on aerosol inhaler 08-29 00:00: 00 Yes [id number] 2 puff TWICE DAILY 2 puff TWICE DAILY (route: inhalation ) Med Classific ation: Respirato ry Therapy Agents atorvastati n 80 mg tablet 08-29 00:00: 00 Yes [id number] Unavailable 80 mg BEDTIME 80 mg BEDTIME (route: oral) Med Classific ation: Cardiovas cular Therapy Agents carvedilol 25 mg tablet 08-29 00:00: 00 Yes [id number] Unavailable 25 mg TWICE DAILY 25 mg TWICE DAILY (route: oral) Med Classific ation: Cardiovas cular Therapy Agents clopidogrel 75 mg tablet 08-29 00:00: 00 Yes [id number] 75 mg EVERY AM 75 mg EVERY AM (route: oral) Med Classific ation: Hematolog ical Agents docusate sodium 100 mg capsule 08-29 00:00: 00 09-25 23:59 :00 No [id number] Unavailable 100 mg TWICE DAILY 100 mg TWICE DAILY (route: oral) Med Classific ation: Gastroint estinal Therapy Agents escitalopra m 20 mg tablet 08-29 00:00: 00 Yes [id number] Unavailable 20 mg EVERY PM 20 mg EVERY PM (route: oral) Med Classific ation: Central Nervous System Agents FeroSul 325 mg (65 mg iron) tablet 08-29 00:00: 00 09-25 23:59 :00 No [id number] Unavailable 325 mg TWICE DAILY IN THE MORNING AND AT BEDTIME 325 mg TWICE DAILY IN THE MORNING AND AT BEDTIME (route: oral) Med Classific ation: Electroly te Balance-N utritiona l Products gabapentin 800 mg tablet 08-29 00:00: 00 09-22 23:59 :00 No [id number] 800 mg 2 TIMES DAILY 800 mg 2 TIMES DAILY (route: oral) Med Classific ation: Central Nervous System Agents hydralazine 25 mg tablet 08-29 00:00: 00 09-22 23:59 :00 No [id number] Unavailable 25 mg 3 TIMES DAILY 25 mg 3 TIMES DAILY (route: oral) Med Classific ation: Cardiovas cular Therapy Agents hydralazine 50 mg tablet 08-29 00:00: 00 09-25 23:59 :00 No [id number] Unavailable 50 mg THREE TIMES DAILY IN THE MORNING AT 50 mg THREE TIMES DAILY IN THE MORNING AT (route: oral) Med Classific ation: Cardiovas cular Therapy Agents mirtazapine 45 mg tablet 08-29 00:00: 00 Yes [id number] Unavailable 45 mg AT BEDTIME 45 mg AT BEDTIME (route: oral) Med Classific ation: Central Nervous System Agents omeprazole 20 mg capsule,del ayed release 08-29 00:00: 00 Yes [id number] 20 mg TWICE DAILY 20 mg TWICE DAILY (route: oral) Med Classific ation: Gastroint estinal Therapy Agents lisinopril 40 mg tablet 09-25 00:00: 00 Yes [id number] 40 mg DAILY 40 mg DAILY (route: oral) Med Classific ation: Cardiovas cular Therapy Agents metformin 1,000 mg tablet 09-25 00:00: 00 09-22 23:59 :00 No [id number] 1000 mg 2 TIMES DAILY 1000 mg 2 TIMES DAILY (route: oral) Med Classific ation: Endocrine multivitami n tablet 09-25 00:00: 00 Yes [id number] 1 tablet DAILY 1 tablet DAILY (route: oral) Med Classific ation: Electroly te Balance-N utritiona l Products nifedipine ER 60 mg tablet,exte nded release 09-25 00:00: 00 Yes [id number] 60 mg EVERY PM 60 mg EVERY PM (route: oral) Med Classific ation: Cardiovas cular Therapy Agents pioglitazon e 15 mg tablet 09-25 00:00: 00 Yes [id number] 15 mg DAILY 15 mg DAILY (route: oral) Med Classific ation: Endocrine Tresiba FlexTouch U-100 insulin 100 unit/mL (3 mL) subcutaneou s pen 09-25 00:00: 00 Yes [id number] 10 In unit DAILY 10 In unit DAILY (route: subcutaneo ) Med Classific ation: Endocrine aspirin 81 mg tablet 09-22 00:00: 00 Yes [id number] 1 tablet DAILY 1 tablet DAILY (route: oral) Med Classific ation: Hematolog ical Agents docusate sodium 100 mg capsule 09-22 00:00: 00 Yes [id number] 1 capsule 2 TIMES DAILY 1 capsule 2 TIMES DAILY (route: oral) Med Classific ation: Gastroint estinal Therapy Agents ferrous sulfate 325 mg (65 mg iron) tablet 09-22 00:00: 00 Yes [id number] 1 tablet 2 TIMES DAILY 1 tablet 2 TIMES DAILY (route: oral) Med Classific ation: Electroly te Balance-N utritiona l Products isosorbide mononitrate ER 30 mg tablet,exte nded release 24 hr 09-22 00:00: 00 Yes [id number] 1 tablet DAILY 1 tablet DAILY (route: [...] PRE-POUR MEDICATION PER MEDICATION LIST TILL NEXT [facility] VISIT [code = SKILLED NURSE TO PRE-POUR MEDICATION PER MEDICATION LIST TILL NEXT [facility] VISIT] Future Scheduled Test PATIENT MA Y [...] MEDICATIONS DAILY AND PRE-POUR MEDICATIONS TILL NEXT [facility] VISIT PER MEDICATION LIST. [code = SKILLED NURSE TO ADMINISTER MEDICATIONS DAILY AND PRE-POUR MEDICATIONS TILL NEXT [facility] VISIT PER MEDICATION LIST.] Future Scheduled Test [...] AWARENESS FOR SAFETY AND WILL NOTIFY CLINICAL REGULATORY PROCESS MANAGER AND PHYSICIAN/PROVIDER WITH ANY CHANGE IN CONDITION. [code = SKILLED NURSE WILL MAINTAIN SITUATIONAL AWARENESS FOR SAFETY AND WILL NOTIFY CLINICAL REGULATORY PROCESS MANAGER AND PHYSICIAN/PROVIDER WITH ANY CHANGE IN [...] CARE WILL BE ESTABLISHED THAT MEETS PATIENT'S [facility] NEEDS AND INCLUDES PATIENT GOAL FOR HOME [...] End Date/Time Encounter Type Admission Type Attending [facility] Care Department Encounter ID Discharge Date Discharge Status Discharge Condition Discharge Reason Percent Goals Met 2024-11-19 00:00:00 2025-01-17 00:00:00 Outpatient RECERTIFIC ATION ERIC EDDY [facility] [id number] 48.39
--- OUTSIDE RECORDS SUMMARY | 2025-01-16 19:00 | XMS_ITS | Clinical Summary ---
Author Organization Unknown Care Team Providers Care Package Car Driver Name Role Phone ADILIA FELIPE, VIOLETA Unavailable Unavailable SURJIT DAVID, ERIC Unavailable Unavailable Payers Payer Name Policy Type Policy Number Effective Date Expira tion Date MEDICAID [facility] [id number] Problems Condition Name Condition Details Condition Category Status Onset Date Resolution Date Last Treatment Date Treating Clinician Comments ESSENTIAL (PRIMARY) HYPERTENSION Active 09-21 00:00: 00 ATHSCL HEART DISEASE OF [place] CORONARY ARTERY W/O ANG PCTRS Active 09-21 [...] CIGARETTES, UNCOMPLICATE D Active 09-21 00:00: 00 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 09-21 00:00: 00 NURSING HOME (CURRENT) USE OF ANTITHROMBOT ICS/ANTIPLAT ELETS [...] release 24 hr 805 00:00: 00 Yes [id number] 60 mg AT BEDTIME 60 mg AT BEDTIME (route: oral) Med Classific ation: Cardiovas cular Therapy Agents oxycodone 5 mg tablet 09-04 00:00: 00 11-19 23:59 :00 No [id number] Unavailable 5 mg FIVE TIMES DAILY NEEDED 5 mg FIVE TIMES DAILY NEEDED (route: oral) Med Classific ation: Analgesic , Anti-infl ammatory or Antipyret ic gabapentin 600 mg tablet 09-03 00:00: 00 09-25 23:59 :00 No [id number] 600 mg 2 TIMES DAILY 600 mg 2 TIMES DAILY (route: oral) Med Classific ation: Central Nervous System Agents nicotine 21 mg/24 hr daily transdermal patch 08-30 00:00: 00 Yes [id number] Unavailable 21 mg DAILY 21 mg DAILY (route: transderma l) Med Classific ation: Chemical Dependenc y, Agents to Treat Alcohol Prep Pads 08-29 00:00: 00 05-18 23:59 :00 No [id number] 1 pads, medicat ed DIRECTED THREE TIMES DAILY AND NEEDED 1 pads, medicated DIRECTED THREE TIMES DAILY AND NEEDED (route: topical) Med Classific ation: Antisepti cs and Disinfect ants amitriptyli ne 50 mg tablet 08-29 00:00: 00 09-22 23:59 :00 No [id number] Unavailable 50 mg AT BEDTIME 50 mg AT BEDTIME (route: oral) Med Classific ation: Central Nervous System Agents Asmanex HFA 100 mcg/actuati on aerosol inhaler 08-29 00:00: 00 Yes [id number] 2 puff TWICE DAILY 2 puff TWICE DAILY (route: inhalation ) Med Classific ation: Respirato ry Therapy Agents atorvastati n 80 mg tablet 08-29 00:00: 00 Yes [id number] Unavailable 80 mg BEDTIME 80 mg BEDTIME (route: oral) Med Classific ation: Cardiovas cular Therapy Agents carvedilol 25 mg tablet 08-29 00:00: 00 Yes [id number] Unavailable 25 mg TWICE DAILY 25 mg TWICE DAILY (route: oral) Med Classific ation: Cardiovas cular Therapy Agents clopidogrel 75 mg tablet 08-29 00:00: 00 Yes [id number] 75 mg EVERY AM 75 mg EVERY AM (route: oral) Med Classific ation: Hematolog ical Agents docusate sodium 100 mg capsule 08-29 00:00: 00 09-25 23:59 :00 No [id number] Unavailable 100 mg TWICE DAILY 100 mg TWICE DAILY (route: oral) Med Classific ation: Gastroint estinal Therapy Agents escitalopra m 20 mg tablet 08-29 00:00: 00 Yes [id number] Unavailable 20 mg EVERY PM 20 mg EVERY PM (route: oral) Med Classific ation: Central Nervous System Agents FeroSul 325 mg (65 mg iron) tablet 08-29 00:00: 00 09-25 23:59 :00 No [id number] Unavailable 325 mg TWICE DAILY IN THE MORNING AND AT BEDTIME 325 mg TWICE DAILY IN THE MORNING AND AT BEDTIME (route: oral) Med Classific ation: Electroly te Balance-N utritiona l Products gabapentin 800 mg tablet 08-29 00:00: 00 09-22 23:59 :00 No [id number] 800 mg 2 TIMES DAILY 800 mg 2 TIMES DAILY (route: oral) Med Classific ation: Central Nervous System Agents hydralazine 25 mg tablet 08-29 00:00: 00 09-22 23:59 :00 No [id number] Unavailable 25 mg 3 TIMES DAILY 25 mg 3 TIMES DAILY (route: oral) Med Classific ation: Cardiovas cular Therapy Agents hydralazine 50 mg tablet 08-29 00:00: 00 09-25 23:59 :00 No [id number] Unavailable 50 mg THREE TIMES DAILY IN THE MORNING AT 50 mg THREE TIMES DAILY IN THE MORNING AT (route: oral) Med Classific ation: Cardiovas cular Therapy Agents mirtazapine 45 mg tablet 08-29 00:00: 00 Yes [id number] Unavailable 45 mg AT BEDTIME 45 mg AT BEDTIME (route: oral) Med Classific ation: Central Nervous System Agents omeprazole 20 mg capsule,del ayed release 08-29 00:00: 00 Yes [id number] 20 mg TWICE DAILY 20 mg TWICE DAILY (route: oral) Med Classific ation: Gastroint estinal Therapy Agents lisinopril 40 mg tablet 09-25 00:00: 00 Yes [id number] 40 mg DAILY 40 mg DAILY (route: oral) Med Classific ation: Cardiovas cular Therapy Agents metformin 1,000 mg tablet 09-25 00:00: 00 09-22 23:59 :00 No [id number] 1000 mg 2 TIMES DAILY 1000 mg 2 TIMES DAILY (route: oral) Med Classific ation: Endocrine multivitami n tablet 09-25 00:00: 00 Yes [id number] 1 tablet DAILY 1 tablet DAILY (route: oral) Med Classific ation: Electroly te Balance-N utritiona l Products nifedipine ER 60 mg tablet,exte nded release 09-25 00:00: 00 Yes [id number] 60 mg EVERY PM 60 mg EVERY PM (route: oral) Med Classific ation: Cardiovas cular Therapy Agents pioglitazon e 15 mg tablet 09-25 00:00: 00 Yes [id number] 15 mg DAILY 15 mg DAILY (route: oral) Med Classific ation: Endocrine Tresiba FlexTouch U-100 insulin 100 unit/mL (3 mL) subcutaneou s pen 09-25 00:00: 00 Yes [id number] 10 In unit DAILY 10 In unit DAILY (route: subcutaneo ) Med Classific ation: Endocrine aspirin 81 mg tablet 09-22 00:00: 00 Yes [id number] 1 tablet DAILY 1 tablet DAILY (route: oral) Med Classific ation: Hematolog ical Agents docusate sodium 100 mg capsule 09-22 00:00: 00 Yes [id number] 1 capsule 2 TIMES DAILY 1 capsule 2 TIMES DAILY (route: oral) Med Classific ation: Gastroint estinal Therapy Agents ferrous sulfate 325 mg (65 mg iron) tablet 09-22 00:00: 00 Yes [id number] 1 tablet 2 TIMES DAILY 1 tablet 2 TIMES DAILY (route: oral) Med Classific ation: Electroly te Balance-N utritiona l Products isosorbide mononitrate ER 30 mg tablet,exte nded release 24 hr 09-22 00:00: 00 Yes [id number] 1 tablet DAILY 1 tablet DAILY (route: [...] PRE-POUR MEDICATION PER MEDICATION LIST TILL NEXT CORRECTION VISIT [code = SKILLED NURSE TO PRE-POUR MEDICATION PER MEDICATION LIST TILL NEXT CORRECTION VISIT] Future Scheduled Test PATIENT MA Y [...] MEDICATIONS DAILY AND PRE-POUR MEDICATIONS TILL NEXT CORRECTION VISIT PER MEDICATION LIST. [code = SKILLED NURSE TO ADMINISTER MEDICATIONS DAILY AND PRE-POUR MEDICATIONS TILL NEXT CORRECTION VISIT PER MEDICATION LIST.] Future Scheduled Test [...] AWARENESS FOR SAFETY AND WILL NOTIFY CLINICAL WELL DIGGER AND PHYSICIAN/PROVIDER WITH ANY CHANGE IN CONDITION. [code = SKILLED NURSE WILL MAINTAIN SITUATIONAL AWARENESS FOR SAFETY AND WILL NOTIFY CLINICAL WELL DIGGER AND PHYSICIAN/PROVIDER WITH ANY CHANGE IN CONDITION.] [...] CARE WILL BE ESTABLISHED THAT MEETS PATIENT'S CORRECTION NEEDS AND INCLUDES PATIENT GOAL FOR HOME [...] End Date/Time Encounter Type Admission Type Attending [facility] Care Department Encounter ID Discharge Date Discharge Status Discharge Condition Discharge Reason Percent Goals Met 2024-11-19 00:00:00 2025-01-17 00:00:00 Outpatient RECERTIFIC ATION ERIC EDDY [facility] [id number] 48.39
--- OUTSIDE RECORDS SUMMARY | 2025-01-16 19:00 | XMS_ITS | Clinical Summary ---
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 Role Phone ADILIA FELIPE, VIOLETA Unavailable Unavailable SURJIT DAVID, ERIC Unavailable Unavailable Payers Payer Name Policy Type Policy Number Effective Date Expira tion Date MEDICAID [facility] [id number] Problems Condition Name Condition Details Condition Category Status Onset Date Resolution Date Last Treatment Date Treating Clinician Comments ESSENTIAL (PRIMARY) HYPERTENSION Active 09-21 00:00: 00 ATHSCL HEART DISEASE OF [place] CORONARY ARTERY W/O ANG PCTRS Active 09-21 [...] CIGARETTES, UNCOMPLICATE D Active 09-21 00:00: 00 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 09-21 00:00: [...] release 24 hr 805 00:00: 00 Yes [id number] 60 mg AT BEDTIME 60 mg AT BEDTIME (route: oral) Med Classific ation: Cardiovas cular Therapy Agents oxycodone 5 mg tablet 09-04 00:00: 00 11-19 23:59 :00 No [id number] Unavailable 5 mg FIVE TIMES DAILY NEEDED 5 mg FIVE TIMES DAILY NEEDED (route: oral) Med Classific ation: Analgesic , Anti-infl ammatory or Antipyret ic gabapentin 600 mg tablet 09-03 00:00: 00 09-25 23:59 :00 No [id number] 600 mg 2 TIMES DAILY 600 mg 2 TIMES DAILY (route: oral) Med Classific ation: Central Nervous System Agents nicotine 21 mg/24 hr daily transdermal patch 08-30 00:00: 00 Yes [id number] Unavailable 21 mg DAILY 21 mg DAILY (route: transderma l) Med Classific ation: Chemical Dependenc y, Agents to Treat Alcohol Prep Pads 08-29 00:00: 00 05-18 23:59 :00 No [id number] 1 pads, medicat ed DIRECTED THREE TIMES DAILY AND NEEDED 1 pads, medicated DIRECTED THREE TIMES DAILY AND NEEDED (route: topical) Med Classific ation: Antisepti cs and Disinfect ants amitriptyli ne 50 mg tablet 08-29 00:00: 00 09-22 23:59 :00 No [id number] Unavailable 50 mg AT BEDTIME 50 mg AT BEDTIME (route: oral) Med Classific ation: Central Nervous System Agents Asmanex HFA 100 mcg/actuati on aerosol inhaler 08-29 00:00: 00 Yes [id number] 2 puff TWICE DAILY 2 puff TWICE DAILY (route: inhalation ) Med Classific ation: Respirato ry Therapy Agents atorvastati n 80 mg tablet 08-29 00:00: 00 Yes [id number] Unavailable 80 mg BEDTIME 80 mg BEDTIME (route: oral) Med Classific ation: Cardiovas cular Therapy Agents carvedilol 25 mg tablet 08-29 00:00: 00 Yes [id number] Unavailable 25 mg TWICE DAILY 25 mg TWICE DAILY (route: oral) Med Classific ation: Cardiovas cular Therapy Agents clopidogrel 75 mg tablet 08-29 00:00: 00 Yes [id number] 75 mg EVERY AM 75 mg EVERY AM (route: oral) Med Classific ation: Hematolog ical Agents docusate sodium 100 mg capsule 08-29 00:00: 00 09-25 23:59 :00 No [id number] Unavailable 100 mg TWICE DAILY 100 mg TWICE DAILY (route: oral) Med Classific ation: Gastroint estinal Therapy Agents escitalopra m 20 mg tablet 08-29 00:00: 00 Yes [id number] Unavailable 20 mg EVERY PM 20 mg EVERY PM (route: oral) Med Classific ation: Central Nervous System Agents FeroSul 325 mg (65 mg iron) tablet 08-29 00:00: 00 09-25 23:59 :00 No [id number] Unavailable 325 mg TWICE DAILY IN THE MORNING AND AT BEDTIME 325 mg TWICE DAILY IN THE MORNING AND AT BEDTIME (route: oral) Med Classific ation: Electroly te Balance-N utritiona l Products gabapentin 800 mg tablet 08-29 00:00: 00 09-22 23:59 :00 No [id number] 800 mg 2 TIMES DAILY 800 mg 2 TIMES DAILY (route: oral) Med Classific ation: Central Nervous System Agents hydralazine 25 mg tablet 08-29 00:00: 00 09-22 23:59 :00 No [id number] Unavailable 25 mg 3 TIMES DAILY 25 mg 3 TIMES DAILY (route: oral) Med Classific ation: Cardiovas cular Therapy Agents hydralazine 50 mg tablet 08-29 00:00: 00 09-25 23:59 :00 No [id number] Unavailable 50 mg THREE TIMES DAILY IN THE MORNING AT 50 mg THREE TIMES DAILY IN THE MORNING AT (route: oral) Med Classific ation: Cardiovas cular Therapy Agents mirtazapine 45 mg tablet 08-29 00:00: 00 Yes [id number] Unavailable 45 mg AT BEDTIME 45 mg AT BEDTIME (route: oral) Med Classific ation: Central Nervous System Agents omeprazole 20 mg capsule,del ayed release 08-29 00:00: 00 Yes [id number] 20 mg TWICE DAILY 20 mg TWICE DAILY (route: oral) Med Classific ation: Gastroint estinal Therapy Agents lisinopril 40 mg tablet 09-25 00:00: 00 Yes [id number] 40 mg DAILY 40 mg DAILY (route: oral) Med Classific ation: Cardiovas cular Therapy Agents metformin 1,000 mg tablet 09-25 00:00: 00 09-22 23:59 :00 No [id number] 1000 mg 2 TIMES DAILY 1000 mg 2 TIMES DAILY (route: oral) Med Classific ation: Endocrine multivitami n tablet 09-25 00:00: 00 Yes [id number] 1 tablet DAILY 1 tablet DAILY (route: oral) Med Classific ation: Electroly te Balance-N utritiona l Products nifedipine ER 60 mg tablet,exte nded release 09-25 00:00: 00 Yes [id number] 60 mg EVERY PM 60 mg EVERY PM (route: oral) Med Classific ation: Cardiovas cular Therapy Agents pioglitazon e 15 mg tablet 09-25 00:00: 00 Yes [id number] 15 mg DAILY 15 mg DAILY (route: oral) Med Classific ation: Endocrine Tresiba FlexTouch U-100 insulin 100 unit/mL (3 mL) subcutaneou s pen 09-25 00:00: 00 Yes [id number] 10 In unit DAILY 10 In unit DAILY (route: subcutaneo ) Med Classific ation: Endocrine aspirin 81 mg tablet 09-22 00:00: 00 Yes [id number] 1 tablet DAILY 1 tablet DAILY (route: oral) Med Classific ation: Hematolog ical Agents docusate sodium 100 mg capsule 09-22 00:00: 00 Yes [id number] 1 capsule 2 TIMES DAILY 1 capsule 2 TIMES DAILY (route: oral) Med Classific ation: Gastroint estinal Therapy Agents ferrous sulfate 325 mg (65 mg iron) tablet 09-22 00:00: 00 Yes [id number] 1 tablet 2 TIMES DAILY 1 tablet 2 TIMES DAILY (route: oral) Med Classific ation: Electroly te Balance-N utritiona l Products isosorbide mononitrate ER 30 mg tablet,exte nded release 24 hr 09-22 00:00: 00 Yes [id number] 1 tablet DAILY 1 tablet DAILY (route: [...] AWARENESS FOR SAFETY AND WILL NOTIFY CLINICAL CARDIAC CATH LAB MANAGER AND PHYSICIAN/PROVIDER WITH ANY CHANGE IN CONDITION. [code = SKILLED NURSE WILL MAINTAIN SITUATIONAL AWARENESS FOR SAFETY AND WILL NOTIFY CLINICAL CARDIAC CATH LAB MANAGER AND PHYSICIAN/PROVIDER WITH ANY CHANGE IN [...] Encounter Type Admission Type Attending [facility] Care Department Encounter ID Discharge Date Discharge Status Discharge Condition Discharge Reason Percent Goals Met 2024-11-19 00:00:00 2025-01-17 00:00:00 Outpatient RECERTIFIC ATION ERIC EDDY [facility] [id number] 48.39
--- OUTSIDE RECORDS SUMMARY | 2025-01-16 19:00 | XMS_ITS | Clinical Summary ---
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 Role Phone ADILIA FELIPE, VIOLETA Unavailable Unavailable SURJIT DAVID, ERIC Unavailable Unavailable Payers Payer Name Policy Type Policy Number Effective Date Expira tion Date MEDICAID [facility] [id number] Problems Condition Name Condition Details Condition Category Status Onset Date Resolution Date Last Treatment Date Treating Clinician Comments ESSENTIAL (PRIMARY) HYPERTENSION Active 09-21 00:00: 00 ATHSCL HEART DISEASE OF [place] CORONARY ARTERY W/O ANG PCTRS Active 09-21 [...] CIGARETTES, UNCOMPLICATE D Active 09-21 00:00: 00 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 09-21 00:00: [...] release 24 hr 805 00:00: 00 Yes [id number] 60 mg AT BEDTIME 60 mg AT BEDTIME (route: oral) Med Classific ation: Cardiovas cular Therapy Agents oxycodone 5 mg tablet 09-04 00:00: 00 11-19 23:59 :00 No [id number] Unavailable 5 mg FIVE TIMES DAILY NEEDED 5 mg FIVE TIMES DAILY NEEDED (route: oral) Med Classific ation: Analgesic , Anti-infl ammatory or Antipyret ic gabapentin 600 mg tablet 09-03 00:00: 00 09-25 23:59 :00 No [id number] 600 mg 2 TIMES DAILY 600 mg 2 TIMES DAILY (route: oral) Med Classific ation: Central Nervous System Agents nicotine 21 mg/24 hr daily transdermal patch 08-30 00:00: 00 Yes [id number] Unavailable 21 mg DAILY 21 mg DAILY (route: transderma l) Med Classific ation: Chemical Dependenc y, Agents to Treat Alcohol Prep Pads 08-29 00:00: 00 05-18 23:59 :00 No [id number] 1 pads, medicat ed DIRECTED THREE TIMES DAILY AND NEEDED 1 pads, medicated DIRECTED THREE TIMES DAILY AND NEEDED (route: topical) Med Classific ation: Antisepti cs and Disinfect ants amitriptyli ne 50 mg tablet 08-29 00:00: 00 09-22 23:59 :00 No [id number] Unavailable 50 mg AT BEDTIME 50 mg AT BEDTIME (route: oral) Med Classific ation: Central Nervous System Agents Asmanex HFA 100 mcg/actuati on aerosol inhaler 08-29 00:00: 00 Yes [id number] 2 puff TWICE DAILY 2 puff TWICE DAILY (route: inhalation ) Med Classific ation: Respirato ry Therapy Agents atorvastati n 80 mg tablet 08-29 00:00: 00 Yes [id number] Unavailable 80 mg BEDTIME 80 mg BEDTIME (route: oral) Med Classific ation: Cardiovas cular Therapy Agents carvedilol 25 mg tablet 08-29 00:00: 00 Yes [id number] Unavailable 25 mg TWICE DAILY 25 mg TWICE DAILY (route: oral) Med Classific ation: Cardiovas cular Therapy Agents clopidogrel 75 mg tablet 08-29 00:00: 00 Yes [id number] 75 mg EVERY AM 75 mg EVERY AM (route: oral) Med Classific ation: Hematolog ical Agents docusate sodium 100 mg capsule 08-29 00:00: 00 09-25 23:59 :00 No [id number] Unavailable 100 mg TWICE DAILY 100 mg TWICE DAILY (route: oral) Med Classific ation: Gastroint estinal Therapy Agents escitalopra m 20 mg tablet 08-29 00:00: 00 Yes [id number] Unavailable 20 mg EVERY PM 20 mg EVERY PM (route: oral) Med Classific ation: Central Nervous System Agents FeroSul 325 mg (65 mg iron) tablet 08-29 00:00: 00 09-25 23:59 :00 No [id number] Unavailable 325 mg TWICE DAILY IN THE MORNING AND AT BEDTIME 325 mg TWICE DAILY IN THE MORNING AND AT BEDTIME (route: oral) Med Classific ation: Electroly te Balance-N utritiona l Products gabapentin 800 mg tablet 08-29 00:00: 00 09-22 23:59 :00 No [id number] 800 mg 2 TIMES DAILY 800 mg 2 TIMES DAILY (route: oral) Med Classific ation: Central Nervous System Agents hydralazine 25 mg tablet 08-29 00:00: 00 09-22 23:59 :00 No [id number] Unavailable 25 mg 3 TIMES DAILY 25 mg 3 TIMES DAILY (route: oral) Med Classific ation: Cardiovas cular Therapy Agents hydralazine 50 mg tablet 08-29 00:00: 00 09-25 23:59 :00 No [id number] Unavailable 50 mg THREE TIMES DAILY IN THE MORNING AT 50 mg THREE TIMES DAILY IN THE MORNING AT (route: oral) Med Classific ation: Cardiovas cular Therapy Agents mirtazapine 45 mg tablet 08-29 00:00: 00 Yes [id number] Unavailable 45 mg AT BEDTIME 45 mg AT BEDTIME (route: oral) Med Classific ation: Central Nervous System Agents omeprazole 20 mg capsule,del ayed release 08-29 00:00: 00 Yes [id number] 20 mg TWICE DAILY 20 mg TWICE DAILY (route: oral) Med Classific ation: Gastroint estinal Therapy Agents lisinopril 40 mg tablet 09-25 00:00: 00 Yes [id number] 40 mg DAILY 40 mg DAILY (route: oral) Med Classific ation: Cardiovas cular Therapy Agents metformin 1,000 mg tablet 09-25 00:00: 00 09-22 23:59 :00 No [id number] 1000 mg 2 TIMES DAILY 1000 mg 2 TIMES DAILY (route: oral) Med Classific ation: Endocrine multivitami n tablet 09-25 00:00: 00 Yes [id number] 1 tablet DAILY 1 tablet DAILY (route: oral) Med Classific ation: Electroly te Balance-N utritiona l Products nifedipine ER 60 mg tablet,exte nded release 09-25 00:00: 00 Yes [id number] 60 mg EVERY PM 60 mg EVERY PM (route: oral) Med Classific ation: Cardiovas cular Therapy Agents pioglitazon e 15 mg tablet 09-25 00:00: 00 Yes [id number] 15 mg DAILY 15 mg DAILY (route: oral) Med Classific ation: Endocrine Tresiba FlexTouch U-100 insulin 100 unit/mL (3 mL) subcutaneou s pen 09-25 00:00: 00 Yes [id number] 10 In unit DAILY 10 In unit DAILY (route: subcutaneo ) Med Classific ation: Endocrine aspirin 81 mg tablet 09-22 00:00: 00 Yes [id number] 1 tablet DAILY 1 tablet DAILY (route: oral) Med Classific ation: Hematolog ical Agents docusate sodium 100 mg capsule 09-22 00:00: 00 Yes [id number] 1 capsule 2 TIMES DAILY 1 capsule 2 TIMES DAILY (route: oral) Med Classific ation: Gastroint estinal Therapy Agents ferrous sulfate 325 mg (65 mg iron) tablet 09-22 00:00: 00 Yes [id number] 1 tablet 2 TIMES DAILY 1 tablet 2 TIMES DAILY (route: oral) Med Classific ation: Electroly te Balance-N utritiona l Products isosorbide mononitrate ER 30 mg tablet,exte nded release 24 hr 09-22 00:00: 00 Yes [id number] 1 tablet DAILY 1 tablet DAILY (route: [...] PRE-POUR MEDICATION PER MEDICATION LIST TILL NEXT LONG-TERM VISIT [code = SKILLED NURSE TO PRE-POUR MEDICATION PER MEDICATION LIST TILL NEXT LONG-TERM VISIT] Future Scheduled Test PATIENT MA Y [...] MEDICATIONS DAILY AND PRE-POUR MEDICATIONS TILL NEXT LONG-TERM VISIT PER MEDICATION LIST. [code = SKILLED NURSE TO ADMINISTER MEDICATIONS DAILY AND PRE-POUR MEDICATIONS TILL NEXT LONG-TERM VISIT PER MEDICATION LIST.] Future Scheduled Test [...] AWARENESS FOR SAFETY AND WILL NOTIFY CLINICAL SEISMOLOGY TECHNICAL OFFICER AND PHYSICIAN/PROVIDER WITH ANY CHANGE IN CONDITION. [code = SKILLED NURSE WILL MAINTAIN SITUATIONAL AWARENESS FOR SAFETY AND WILL NOTIFY CLINICAL SEISMOLOGY TECHNICAL OFFICER AND PHYSICIAN/PROVIDER WITH ANY CHANGE IN CONDITION.] [...] CARE WILL BE ESTABLISHED THAT MEETS PATIENT'S LONG-TERM NEEDS AND INCLUDES PATIENT GOAL FOR HOME [...] End Date/Time Encounter Type Admission Type Attending [facility] Care Department Encounter ID Discharge Date Discharge Status Discharge Condition Discharge Reason Percent Goals Met 2024-11-19 00:00:00 2025-01-17 00:00:00 Outpatient RECERTIFIC ATION ERIC EDDY [facility] [id number] 48.39
--- OUTSIDE RECORDS SUMMARY | 2025-01-16 19:00 | XMS_ITS | Clinical Summary ---
Author Organization Unknown Care Team Providers Care Civil Engineering Specialist Name Role Phone ADILIA FELIPE, VIOLETA Unavailable Unavailable SURJIT DAVID, ERIC Unavailable Unavailable Payers Payer Name Policy Type Policy Number Effective Date Expira tion Date MEDICAID [facility] [id number] Problems Condition Name Condition Details Condition Category Status Onset Date Resolution Date Last Treatment Date Treating Clinician Comments ESSENTIAL (PRIMARY) HYPERTENSION Active 09-21 00:00: 00 ATHSCL HEART DISEASE OF [place] CORONARY ARTERY W/O ANG PCTRS Active 09-21 [...] CIGARETTES, UNCOMPLICATE D Active 09-21 00:00: 00 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 09-21 [...] release 24 hr 805 00:00: 00 Yes [id number] 60 mg AT BEDTIME 60 mg AT BEDTIME (route: oral) Med Classific ation: Cardiovas cular Therapy Agents oxycodone 5 mg tablet 09-04 00:00: 00 11-19 23:59 :00 No [id number] Unavailable 5 mg FIVE TIMES DAILY NEEDED 5 mg FIVE TIMES DAILY NEEDED (route: oral) Med Classific ation: Analgesic , Anti-infl ammatory or Antipyret ic gabapentin 600 mg tablet 09-03 00:00: 00 09-25 23:59 :00 No [id number] 600 mg 2 TIMES DAILY 600 mg 2 TIMES DAILY (route: oral) Med Classific ation: Central Nervous System Agents nicotine 21 mg/24 hr daily transdermal patch 08-30 00:00: 00 Yes [id number] Unavailable 21 mg DAILY 21 mg DAILY (route: transderma l) Med Classific ation: Chemical Dependenc y, Agents to Treat Alcohol Prep Pads 08-29 00:00: 00 05-18 23:59 :00 No [id number] 1 pads, medicat ed DIRECTED THREE TIMES DAILY AND NEEDED 1 pads, medicated DIRECTED THREE TIMES DAILY AND NEEDED (route: topical) Med Classific ation: Antisepti cs and Disinfect ants amitriptyli ne 50 mg tablet 08-29 00:00: 00 09-22 23:59 :00 No [id number] Unavailable 50 mg AT BEDTIME 50 mg AT BEDTIME (route: oral) Med Classific ation: Central Nervous System Agents Asmanex HFA 100 mcg/actuati on aerosol inhaler 08-29 00:00: 00 Yes [id number] 2 puff TWICE DAILY 2 puff TWICE DAILY (route: inhalation ) Med Classific ation: Respirato ry Therapy Agents atorvastati n 80 mg tablet 08-29 00:00: 00 Yes [id number] Unavailable 80 mg BEDTIME 80 mg BEDTIME (route: oral) Med Classific ation: Cardiovas cular Therapy Agents carvedilol 25 mg tablet 08-29 00:00: 00 Yes [id number] Unavailable 25 mg TWICE DAILY 25 mg TWICE DAILY (route: oral) Med Classific ation: Cardiovas cular Therapy Agents clopidogrel 75 mg tablet 08-29 00:00: 00 Yes [id number] 75 mg EVERY AM 75 mg EVERY AM (route: oral) Med Classific ation: Hematolog ical Agents docusate sodium 100 mg capsule 08-29 00:00: 00 09-25 23:59 :00 No [id number] Unavailable 100 mg TWICE DAILY 100 mg TWICE DAILY (route: oral) Med Classific ation: Gastroint estinal Therapy Agents escitalopra m 20 mg tablet 08-29 00:00: 00 Yes [id number] Unavailable 20 mg EVERY PM 20 mg EVERY PM (route: oral) Med Classific ation: Central Nervous System Agents FeroSul 325 mg (65 mg iron) tablet 08-29 00:00: 00 09-25 23:59 :00 No [id number] Unavailable 325 mg TWICE DAILY IN THE MORNING AND AT BEDTIME 325 mg TWICE DAILY IN THE MORNING AND AT BEDTIME (route: oral) Med Classific ation: Electroly te Balance-N utritiona l Products gabapentin 800 mg tablet 08-29 00:00: 00 09-22 23:59 :00 No [id number] 800 mg 2 TIMES DAILY 800 mg 2 TIMES DAILY (route: oral) Med Classific ation: Central Nervous System Agents hydralazine 25 mg tablet 08-29 00:00: 00 09-22 23:59 :00 No [id number] Unavailable 25 mg 3 TIMES DAILY 25 mg 3 TIMES DAILY (route: oral) Med Classific ation: Cardiovas cular Therapy Agents hydralazine 50 mg tablet 08-29 00:00: 00 09-25 23:59 :00 No [id number] Unavailable 50 mg THREE TIMES DAILY IN THE MORNING AT 50 mg THREE TIMES DAILY IN THE MORNING AT (route: oral) Med Classific ation: Cardiovas cular Therapy Agents mirtazapine 45 mg tablet 08-29 00:00: 00 Yes [id number] Unavailable 45 mg AT BEDTIME 45 mg AT BEDTIME (route: oral) Med Classific ation: Central Nervous System Agents omeprazole 20 mg capsule,del ayed release 08-29 00:00: 00 Yes [id number] 20 mg TWICE DAILY 20 mg TWICE DAILY (route: oral) Med Classific ation: Gastroint estinal Therapy Agents lisinopril 40 mg tablet 09-25 00:00: 00 Yes [id number] 40 mg DAILY 40 mg DAILY (route: oral) Med Classific ation: Cardiovas cular Therapy Agents metformin 1,000 mg tablet 09-25 00:00: 00 09-22 23:59 :00 No [id number] 1000 mg 2 TIMES DAILY 1000 mg 2 TIMES DAILY (route: oral) Med Classific ation: Endocrine multivitami n tablet 09-25 00:00: 00 Yes [id number] 1 tablet DAILY 1 tablet DAILY (route: oral) Med Classific ation: Electroly te Balance-N utritiona l Products nifedipine ER 60 mg tablet,exte nded release 09-25 00:00: 00 Yes [id number] 60 mg EVERY PM 60 mg EVERY PM (route: oral) Med Classific ation: Cardiovas cular Therapy Agents pioglitazon e 15 mg tablet 09-25 00:00: 00 Yes [id number] 15 mg DAILY 15 mg DAILY (route: oral) Med Classific ation: Endocrine Tresiba FlexTouch U-100 insulin 100 unit/mL (3 mL) subcutaneou s pen 09-25 00:00: 00 Yes [id number] 10 In unit DAILY 10 In unit DAILY (route: subcutaneo ) Med Classific ation: Endocrine aspirin 81 mg tablet 09-22 00:00: 00 Yes [id number] 1 tablet DAILY 1 tablet DAILY (route: oral) Med Classific ation: Hematolog ical Agents docusate sodium 100 mg capsule 09-22 00:00: 00 Yes [id number] 1 capsule 2 TIMES DAILY 1 capsule 2 TIMES DAILY (route: oral) Med Classific ation: Gastroint estinal Therapy Agents ferrous sulfate 325 mg (65 mg iron) tablet 09-22 00:00: 00 Yes [id number] 1 tablet 2 TIMES DAILY 1 tablet 2 TIMES DAILY (route: oral) Med Classific ation: Electroly te Balance-N utritiona l Products isosorbide mononitrate ER 30 mg tablet,exte nded release 24 hr 09-22 00:00: 00 Yes [id number] 1 tablet DAILY 1 tablet DAILY (route: [...] PRE-POUR MEDICATION PER MEDICATION LIST TILL NEXT GROUP HOME VISIT [code = SKILLED NURSE TO PRE-POUR MEDICATION PER MEDICATION LIST TILL NEXT GROUP HOME VISIT] Future Scheduled Test PATIENT MA [...] AWARENESS FOR SAFETY AND WILL NOTIFY CLINICAL SLEEP LAB TECHNICIAN AND PHYSICIAN/PROVIDER WITH ANY CHANGE IN CONDITION. [code = SKILLED NURSE WILL MAINTAIN SITUATIONAL AWARENESS FOR SAFETY AND WILL NOTIFY CLINICAL SLEEP LAB TECHNICIAN AND PHYSICIAN/PROVIDER WITH ANY CHANGE IN [...] 2025-01-17 00:00:00 Outpatient RECERTIFIC ATION ERIC EDDY [facility] [id number] 48.39
--- OUTSIDE RECORDS SUMMARY | 2025-01-16 19:00 | XMS_ITS | Clinical Summary ---
Author Organization Unknown Care Team Providers Care Disc Pad Plate Filler Name Role Phone ADILIA FELIPE, VIOLETA Unavailable Unavailable SURJIT DAVID, ERIC Unavailable Unavailable Payers Payer Name Policy Type Policy Number Effective Date Expira tion Date MEDICAID [facility] [id number] Problems Condition Name Condition Details Condition Category Status Onset Date Resolution Date Last Treatment Date Treating Clinician Comments ESSENTIAL (PRIMARY) HYPERTENSION Active 09-21 00:00: 00 ATHSCL HEART DISEASE OF [place] CORONARY ARTERY W/O ANG PCTRS Active 09-21 [...] CIGARETTES, UNCOMPLICATE D Active 09-21 00:00: 00 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 09-21 00:00: [...] release 24 hr 805 00:00: 00 Yes [id number] 60 mg AT BEDTIME 60 mg AT BEDTIME (route: oral) Med Classific ation: Cardiovas cular Therapy Agents oxycodone 5 mg tablet 09-04 00:00: 00 11-19 23:59 :00 No [id number] Unavailable 5 mg FIVE TIMES DAILY NEEDED 5 mg FIVE TIMES DAILY NEEDED (route: oral) Med Classific ation: Analgesic , Anti-infl ammatory or Antipyret ic gabapentin 600 mg tablet 09-03 00:00: 00 09-25 23:59 :00 No [id number] 600 mg 2 TIMES DAILY 600 mg 2 TIMES DAILY (route: oral) Med Classific ation: Central Nervous System Agents nicotine 21 mg/24 hr daily transdermal patch 08-30 00:00: 00 Yes [id number] Unavailable 21 mg DAILY 21 mg DAILY (route: transderma l) Med Classific ation: Chemical Dependenc y, Agents to Treat Alcohol Prep Pads 08-29 00:00: 00 05-18 23:59 :00 No [id number] 1 pads, medicat ed DIRECTED THREE TIMES DAILY AND NEEDED 1 pads, medicated DIRECTED THREE TIMES DAILY AND NEEDED (route: topical) Med Classific ation: Antisepti cs and Disinfect ants amitriptyli ne 50 mg tablet 08-29 00:00: 00 09-22 23:59 :00 No [id number] Unavailable 50 mg AT BEDTIME 50 mg AT BEDTIME (route: oral) Med Classific ation: Central Nervous System Agents Asmanex HFA 100 mcg/actuati on aerosol inhaler 08-29 00:00: 00 Yes [id number] 2 puff TWICE DAILY 2 puff TWICE DAILY (route: inhalation ) Med Classific ation: Respirato ry Therapy Agents atorvastati n 80 mg tablet 08-29 00:00: 00 Yes [id number] Unavailable 80 mg BEDTIME 80 mg BEDTIME (route: oral) Med Classific ation: Cardiovas cular Therapy Agents carvedilol 25 mg tablet 08-29 00:00: 00 Yes [id number] Unavailable 25 mg TWICE DAILY 25 mg TWICE DAILY (route: oral) Med Classific ation: Cardiovas cular Therapy Agents clopidogrel 75 mg tablet 08-29 00:00: 00 Yes [id number] 75 mg EVERY AM 75 mg EVERY AM (route: oral) Med Classific ation: Hematolog ical Agents docusate sodium 100 mg capsule 08-29 00:00: 00 09-25 23:59 :00 No [id number] Unavailable 100 mg TWICE DAILY 100 mg TWICE DAILY (route: oral) Med Classific ation: Gastroint estinal Therapy Agents escitalopra m 20 mg tablet 08-29 00:00: 00 Yes [id number] Unavailable 20 mg EVERY PM 20 mg EVERY PM (route: oral) Med Classific ation: Central Nervous System Agents FeroSul 325 mg (65 mg iron) tablet 08-29 00:00: 00 09-25 23:59 :00 No [id number] Unavailable 325 mg TWICE DAILY IN THE MORNING AND AT BEDTIME 325 mg TWICE DAILY IN THE MORNING AND AT BEDTIME (route: oral) Med Classific ation: Electroly te Balance-N utritiona l Products gabapentin 800 mg tablet 08-29 00:00: 00 09-22 23:59 :00 No [id number] 800 mg 2 TIMES DAILY 800 mg 2 TIMES DAILY (route: oral) Med Classific ation: Central Nervous System Agents hydralazine 25 mg tablet 08-29 00:00: 00 09-22 23:59 :00 No [id number] Unavailable 25 mg 3 TIMES DAILY 25 mg 3 TIMES DAILY (route: oral) Med Classific ation: Cardiovas cular Therapy Agents hydralazine 50 mg tablet 08-29 00:00: 00 09-25 23:59 :00 No [id number] Unavailable 50 mg THREE TIMES DAILY IN THE MORNING AT 50 mg THREE TIMES DAILY IN THE MORNING AT (route: oral) Med Classific ation: Cardiovas cular Therapy Agents mirtazapine 45 mg tablet 08-29 00:00: 00 Yes [id number] Unavailable 45 mg AT BEDTIME 45 mg AT BEDTIME (route: oral) Med Classific ation: Central Nervous System Agents omeprazole 20 mg capsule,del ayed release 08-29 00:00: 00 Yes [id number] 20 mg TWICE DAILY 20 mg TWICE DAILY (route: oral) Med Classific ation: Gastroint estinal Therapy Agents lisinopril 40 mg tablet 09-25 00:00: 00 Yes [id number] 40 mg DAILY 40 mg DAILY (route: oral) Med Classific ation: Cardiovas cular Therapy Agents metformin 1,000 mg tablet 09-25 00:00: 00 09-22 23:59 :00 No [id number] 1000 mg 2 TIMES DAILY 1000 mg 2 TIMES DAILY (route: oral) Med Classific ation: Endocrine multivitami n tablet 09-25 00:00: 00 Yes [id number] 1 tablet DAILY 1 tablet DAILY (route: oral) Med Classific ation: Electroly te Balance-N utritiona l Products nifedipine ER 60 mg tablet,exte nded release 09-25 00:00: 00 Yes [id number] 60 mg EVERY PM 60 mg EVERY PM (route: oral) Med Classific ation: Cardiovas cular Therapy Agents pioglitazon e 15 mg tablet 09-25 00:00: 00 Yes [id number] 15 mg DAILY 15 mg DAILY (route: oral) Med Classific ation: Endocrine Tresiba FlexTouch U-100 insulin 100 unit/mL (3 mL) subcutaneou s pen 09-25 00:00: 00 Yes [id number] 10 In unit DAILY 10 In unit DAILY (route: subcutaneo ) Med Classific ation: Endocrine aspirin 81 mg tablet 09-22 00:00: 00 Yes [id number] 1 tablet DAILY 1 tablet DAILY (route: oral) Med Classific ation: Hematolog ical Agents docusate sodium 100 mg capsule 09-22 00:00: 00 Yes [id number] 1 capsule 2 TIMES DAILY 1 capsule 2 TIMES DAILY (route: oral) Med Classific ation: Gastroint estinal Therapy Agents ferrous sulfate 325 mg (65 mg iron) tablet 09-22 00:00: 00 Yes [id number] 1 tablet 2 TIMES DAILY 1 tablet 2 TIMES DAILY (route: oral) Med Classific ation: Electroly te Balance-N utritiona l Products isosorbide mononitrate ER 30 mg tablet,exte nded release 24 hr 09-22 00:00: 00 Yes [id number] 1 tablet DAILY 1 tablet DAILY (route: [...] PRE-POUR MEDICATION PER MEDICATION LIST TILL NEXT NURSING HOME VISIT [code = SKILLED NURSE TO PRE-POUR MEDICATION PER MEDICATION LIST TILL NEXT NURSING HOME VISIT] Future Scheduled Test PATIENT MA [...] MEDICATIONS DAILY AND PRE-POUR MEDICATIONS TILL NEXT NURSING HOME VISIT PER MEDICATION LIST. [code = SKILLED NURSE TO ADMINISTER MEDICATIONS DAILY AND PRE-POUR MEDICATIONS TILL NEXT NURSING HOME VISIT PER MEDICATION LIST.] Future Scheduled [...] AWARENESS FOR SAFETY AND WILL NOTIFY CLINICAL SWING RIDE OPERATOR AND PHYSICIAN/PROVIDER WITH ANY CHANGE IN CONDITION. [code = SKILLED NURSE WILL MAINTAIN SITUATIONAL AWARENESS FOR SAFETY AND WILL NOTIFY CLINICAL SWING RIDE OPERATOR AND PHYSICIAN/PROVIDER WITH ANY CHANGE IN [...] End Date/Time Encounter Type Admission Type Attending [facility] Care Department Encounter ID Discharge Date Discharge Status Discharge Condition Discharge Reason Percent Goals Met 2024-11-19 00:00:00 2025-01-17 00:00:00 Outpatient RECERTIFIC ATION ERIC EDDY [facility] [id number] 48.39
--- OUTSIDE RECORDS SUMMARY | 2025-01-16 19:00 | XMS_ITS | Clinical Summary ---
Author Organization Unknown Care Team Providers Care Container Coordinator Name Role Phone ADILIA FELIPE, VIOLETA Unavailable Unavailable SURJIT DAVID, ERIC Unavailable Unavailable Payers Payer Name Policy Type Policy Number Effective Date Expira tion Date MEDICAID [facility] [id number] Problems Condition Name Condition Details Condition Category Status Onset Date Resolution Date Last Treatment Date Treating Clinician Comments ESSENTIAL (PRIMARY) HYPERTENSION Active 09-21 00:00: 00 ATHSCL HEART DISEASE OF [place] CORONARY ARTERY W/O ANG PCTRS Active 09-21 [...] CIGARETTES, UNCOMPLICATE D Active 09-21 00:00: 00 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 09-21 00:00: 00 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 (CURRENT) USE OF ANTITHROMBOT ICS/ANTIPLAT ELETS Active [...] release 24 hr 805 00:00: 00 Yes [id number] 60 mg AT BEDTIME 60 mg AT BEDTIME (route: oral) Med Classific ation: Cardiovas cular Therapy Agents oxycodone 5 mg tablet 09-04 00:00: 00 11-19 23:59 :00 No [id number] Unavailable 5 mg FIVE TIMES DAILY NEEDED 5 mg FIVE TIMES DAILY NEEDED (route: oral) Med Classific ation: Analgesic , Anti-infl ammatory or Antipyret ic gabapentin 600 mg tablet 09-03 00:00: 00 09-25 23:59 :00 No [id number] 600 mg 2 TIMES DAILY 600 mg 2 TIMES DAILY (route: oral) Med Classific ation: Central Nervous System Agents nicotine 21 mg/24 hr daily transdermal patch 08-30 00:00: 00 Yes [id number] Unavailable 21 mg DAILY 21 mg DAILY (route: transderma l) Med Classific ation: Chemical Dependenc y, Agents to Treat Alcohol Prep Pads 08-29 00:00: 00 05-18 23:59 :00 No [id number] 1 pads, medicat ed DIRECTED THREE TIMES DAILY AND NEEDED 1 pads, medicated DIRECTED THREE TIMES DAILY AND NEEDED (route: topical) Med Classific ation: Antisepti cs and Disinfect ants amitriptyli ne 50 mg tablet 08-29 00:00: 00 09-22 23:59 :00 No [id number] Unavailable 50 mg AT BEDTIME 50 mg AT BEDTIME (route: oral) Med Classific ation: Central Nervous System Agents Asmanex HFA 100 mcg/actuati on aerosol inhaler 08-29 00:00: 00 Yes [id number] 2 puff TWICE DAILY 2 puff TWICE DAILY (route: inhalation ) Med Classific ation: Respirato ry Therapy Agents atorvastati n 80 mg tablet 08-29 00:00: 00 Yes [id number] Unavailable 80 mg BEDTIME 80 mg BEDTIME (route: oral) Med Classific ation: Cardiovas cular Therapy Agents carvedilol 25 mg tablet 08-29 00:00: 00 Yes [id number] Unavailable 25 mg TWICE DAILY 25 mg TWICE DAILY (route: oral) Med Classific ation: Cardiovas cular Therapy Agents clopidogrel 75 mg tablet 08-29 00:00: 00 Yes [id number] 75 mg EVERY AM 75 mg EVERY AM (route: oral) Med Classific ation: Hematolog ical Agents docusate sodium 100 mg capsule 08-29 00:00: 00 09-25 23:59 :00 No [id number] Unavailable 100 mg TWICE DAILY 100 mg TWICE DAILY (route: oral) Med Classific ation: Gastroint estinal Therapy Agents escitalopra m 20 mg tablet 08-29 00:00: 00 Yes [id number] Unavailable 20 mg EVERY PM 20 mg EVERY PM (route: oral) Med Classific ation: Central Nervous System Agents FeroSul 325 mg (65 mg iron) tablet 08-29 00:00: 00 09-25 23:59 :00 No [id number] Unavailable 325 mg TWICE DAILY IN THE MORNING AND AT BEDTIME 325 mg TWICE DAILY IN THE MORNING AND AT BEDTIME (route: oral) Med Classific ation: Electroly te Balance-N utritiona l Products gabapentin 800 mg tablet 08-29 00:00: 00 09-22 23:59 :00 No [id number] 800 mg 2 TIMES DAILY 800 mg 2 TIMES DAILY (route: oral) Med Classific ation: Central Nervous System Agents hydralazine 25 mg tablet 08-29 00:00: 00 09-22 23:59 :00 No [id number] Unavailable 25 mg 3 TIMES DAILY 25 mg 3 TIMES DAILY (route: oral) Med Classific ation: Cardiovas cular Therapy Agents hydralazine 50 mg tablet 08-29 00:00: 00 09-25 23:59 :00 No [id number] Unavailable 50 mg THREE TIMES DAILY IN THE MORNING AT 50 mg THREE TIMES DAILY IN THE MORNING AT (route: oral) Med Classific ation: Cardiovas cular Therapy Agents mirtazapine 45 mg tablet 08-29 00:00: 00 Yes [id number] Unavailable 45 mg AT BEDTIME 45 mg AT BEDTIME (route: oral) Med Classific ation: Central Nervous System Agents omeprazole 20 mg capsule,del ayed release 08-29 00:00: 00 Yes [id number] 20 mg TWICE DAILY 20 mg TWICE DAILY (route: oral) Med Classific ation: Gastroint estinal Therapy Agents lisinopril 40 mg tablet 09-25 00:00: 00 Yes [id number] 40 mg DAILY 40 mg DAILY (route: oral) Med Classific ation: Cardiovas cular Therapy Agents metformin 1,000 mg tablet 09-25 00:00: 00 09-22 23:59 :00 No [id number] 1000 mg 2 TIMES DAILY 1000 mg 2 TIMES DAILY (route: oral) Med Classific ation: Endocrine multivitami n tablet 09-25 00:00: 00 Yes [id number] 1 tablet DAILY 1 tablet DAILY (route: oral) Med Classific ation: Electroly te Balance-N utritiona l Products nifedipine ER 60 mg tablet,exte nded release 09-25 00:00: 00 Yes [id number] 60 mg EVERY PM 60 mg EVERY PM (route: oral) Med Classific ation: Cardiovas cular Therapy Agents pioglitazon e 15 mg tablet 09-25 00:00: 00 Yes [id number] 15 mg DAILY 15 mg DAILY (route: oral) Med Classific ation: Endocrine Tresiba FlexTouch U-100 insulin 100 unit/mL (3 mL) subcutaneou s pen 09-25 00:00: 00 Yes [id number] 10 In unit DAILY 10 In unit DAILY (route: subcutaneo ) Med Classific ation: Endocrine aspirin 81 mg tablet 09-22 00:00: 00 Yes [id number] 1 tablet DAILY 1 tablet DAILY (route: oral) Med Classific ation: Hematolog ical Agents docusate sodium 100 mg capsule 09-22 00:00: 00 Yes [id number] 1 capsule 2 TIMES DAILY 1 capsule 2 TIMES DAILY (route: oral) Med Classific ation: Gastroint estinal Therapy Agents ferrous sulfate 325 mg (65 mg iron) tablet 09-22 00:00: 00 Yes [id number] 1 tablet 2 TIMES DAILY 1 tablet 2 TIMES DAILY (route: oral) Med Classific ation: Electroly te Balance-N utritiona l Products isosorbide mononitrate ER 30 mg tablet,exte nded release 24 hr 09-22 00:00: 00 Yes [id number] 1 tablet DAILY 1 tablet DAILY (route: [...] AWARENESS FOR SAFETY AND WILL NOTIFY CLINICAL SOFTWARE DESIGN MANAGER AND PHYSICIAN/PROVIDER WITH ANY CHANGE IN CONDITION. [code = SKILLED NURSE WILL MAINTAIN SITUATIONAL AWARENESS FOR SAFETY AND WILL NOTIFY CLINICAL SOFTWARE DESIGN MANAGER AND PHYSICIAN/PROVIDER WITH ANY CHANGE IN [...] End Date/Time Encounter Type Admission Type Attending [facility] Care Department Encounter ID Discharge Date Discharge Status Discharge Condition Discharge Reason Percent Goals Met 2024-11-19 00:00:00 2025-01-17 00:00:00 Outpatient RECERTIFIC ATION ERIC EDDY [facility] [id number] 48.39
--- OUTSIDE RECORDS SUMMARY | 2025-01-16 19:00 | XMS_ITS | Clinical Summary ---
Author Organization Unknown Care Team Providers Care Assembly Lead Person Name Role Phone ADILIA FELIPE, VIOLETA Unavailable Unavailable SURJIT DAVID, ERIC Unavailable Unavailable Payers Payer Name Policy Type Policy Number Effective Date Expira tion Date MEDICAID [facility] [id number] Problems Condition Name Condition Details Condition Category Status Onset Date Resolution Date Last Treatment Date Treating Clinician Comments ESSENTIAL (PRIMARY) HYPERTENSION Active 09-21 00:00: 00 ATHSCL HEART DISEASE OF [place] CORONARY ARTERY W/O ANG PCTRS Active [...] CIGARETTES, UNCOMPLICATE D Active 09-21 00:00: 00 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 09-21 00:00: 00 [facility] (CURRENT) USE OF ANTITHROMBOT ICS/ANTIPLAT ELETS Active [...] release 24 hr 805 00:00: 00 Yes [id number] 60 mg AT BEDTIME 60 mg AT BEDTIME (route: oral) Med Classific ation: Cardiovas cular Therapy Agents oxycodone 5 mg tablet 09-04 00:00: 00 11-19 23:59 :00 No [id number] Unavailable 5 mg FIVE TIMES DAILY NEEDED 5 mg FIVE TIMES DAILY NEEDED (route: oral) Med Classific ation: Analgesic , Anti-infl ammatory or Antipyret ic gabapentin 600 mg tablet 09-03 00:00: 00 09-25 23:59 :00 No [id number] 600 mg 2 TIMES DAILY 600 mg 2 TIMES DAILY (route: oral) Med Classific ation: Central Nervous System Agents nicotine 21 mg/24 hr daily transdermal patch 08-30 00:00: 00 Yes [id number] Unavailable 21 mg DAILY 21 mg DAILY (route: transderma l) Med Classific ation: Chemical Dependenc y, Agents to Treat Alcohol Prep Pads 08-29 00:00: 00 05-18 23:59 :00 No [id number] 1 pads, medicat ed DIRECTED THREE TIMES DAILY AND NEEDED 1 pads, medicated DIRECTED THREE TIMES DAILY AND NEEDED (route: topical) Med Classific ation: Antisepti cs and Disinfect ants amitriptyli ne 50 mg tablet 08-29 00:00: 00 09-22 23:59 :00 No [id number] Unavailable 50 mg AT BEDTIME 50 mg AT BEDTIME (route: oral) Med Classific ation: Central Nervous System Agents Asmanex HFA 100 mcg/actuati on aerosol inhaler 08-29 00:00: 00 Yes [id number] 2 puff TWICE DAILY 2 puff TWICE DAILY (route: inhalation ) Med Classific ation: Respirato ry Therapy Agents atorvastati n 80 mg tablet 08-29 00:00: 00 Yes [id number] Unavailable 80 mg BEDTIME 80 mg BEDTIME (route: oral) Med Classific ation: Cardiovas cular Therapy Agents carvedilol 25 mg tablet 08-29 00:00: 00 Yes [id number] Unavailable 25 mg TWICE DAILY 25 mg TWICE DAILY (route: oral) Med Classific ation: Cardiovas cular Therapy Agents clopidogrel 75 mg tablet 08-29 00:00: 00 Yes [id number] 75 mg EVERY AM 75 mg EVERY AM (route: oral) Med Classific ation: Hematolog ical Agents docusate sodium 100 mg capsule 08-29 00:00: 00 09-25 23:59 :00 No [id number] Unavailable 100 mg TWICE DAILY 100 mg TWICE DAILY (route: oral) Med Classific ation: Gastroint estinal Therapy Agents escitalopra m 20 mg tablet 08-29 00:00: 00 Yes [id number] Unavailable 20 mg EVERY PM 20 mg EVERY PM (route: oral) Med Classific ation: Central Nervous System Agents FeroSul 325 mg (65 mg iron) tablet 08-29 00:00: 00 09-25 23:59 :00 No [id number] Unavailable 325 mg TWICE DAILY IN THE MORNING AND AT BEDTIME 325 mg TWICE DAILY IN THE MORNING AND AT BEDTIME (route: oral) Med Classific ation: Electroly te Balance-N utritiona l Products gabapentin 800 mg tablet 08-29 00:00: 00 09-22 23:59 :00 No [id number] 800 mg 2 TIMES DAILY 800 mg 2 TIMES DAILY (route: oral) Med Classific ation: Central Nervous System Agents hydralazine 25 mg tablet 08-29 00:00: 00 09-22 23:59 :00 No [id number] Unavailable 25 mg 3 TIMES DAILY 25 mg 3 TIMES DAILY (route: oral) Med Classific ation: Cardiovas cular Therapy Agents hydralazine 50 mg tablet 08-29 00:00: 00 09-25 23:59 :00 No [id number] Unavailable 50 mg THREE TIMES DAILY IN THE MORNING AT 50 mg THREE TIMES DAILY IN THE MORNING AT (route: oral) Med Classific ation: Cardiovas cular Therapy Agents mirtazapine 45 mg tablet 08-29 00:00: 00 Yes [id number] Unavailable 45 mg AT BEDTIME 45 mg AT BEDTIME (route: oral) Med Classific ation: Central Nervous System Agents omeprazole 20 mg capsule,del ayed release 08-29 00:00: 00 Yes [id number] 20 mg TWICE DAILY 20 mg TWICE DAILY (route: oral) Med Classific ation: Gastroint estinal Therapy Agents lisinopril 40 mg tablet 09-25 00:00: 00 Yes [id number] 40 mg DAILY 40 mg DAILY (route: oral) Med Classific ation: Cardiovas cular Therapy Agents metformin 1,000 mg tablet 09-25 00:00: 00 09-22 23:59 :00 No [id number] 1000 mg 2 TIMES DAILY 1000 mg 2 TIMES DAILY (route: oral) Med Classific ation: Endocrine multivitami n tablet 09-25 00:00: 00 Yes [id number] 1 tablet DAILY 1 tablet DAILY (route: oral) Med Classific ation: Electroly te Balance-N utritiona l Products nifedipine ER 60 mg tablet,exte nded release 09-25 00:00: 00 Yes [id number] 60 mg EVERY PM 60 mg EVERY PM (route: oral) Med Classific ation: Cardiovas cular Therapy Agents pioglitazon e 15 mg tablet 09-25 00:00: 00 Yes [id number] 15 mg DAILY 15 mg DAILY (route: oral) Med Classific ation: Endocrine Tresiba FlexTouch U-100 insulin 100 unit/mL (3 mL) subcutaneou s pen 09-25 00:00: 00 Yes [id number] 10 In unit DAILY 10 In unit DAILY (route: subcutaneo ) Med Classific ation: Endocrine aspirin 81 mg tablet 09-22 00:00: 00 Yes [id number] 1 tablet DAILY 1 tablet DAILY (route: oral) Med Classific ation: Hematolog ical Agents docusate sodium 100 mg capsule 09-22 00:00: 00 Yes [id number] 1 capsule 2 TIMES DAILY 1 capsule 2 TIMES DAILY (route: oral) Med Classific ation: Gastroint estinal Therapy Agents ferrous sulfate 325 mg (65 mg iron) tablet 09-22 00:00: 00 Yes [id number] 1 tablet 2 TIMES DAILY 1 tablet 2 TIMES DAILY (route: oral) Med Classific ation: Electroly te Balance-N utritiona l Products isosorbide mononitrate ER 30 mg tablet,exte nded release 24 hr 09-22 00:00: 00 Yes [id number] 1 tablet DAILY 1 tablet DAILY (route: [...] AWARENESS FOR SAFETY AND WILL NOTIFY CLINICAL MEDICINE WORKER AND PHYSICIAN/PROVIDER WITH ANY CHANGE IN CONDITION. [code = SKILLED NURSE WILL MAINTAIN SITUATIONAL AWARENESS FOR SAFETY AND WILL NOTIFY CLINICAL MEDICINE WORKER AND PHYSICIAN/PROVIDER WITH ANY CHANGE IN [...] End Date/Time Encounter Type Admission Type Attending [facility] Care Department Encounter ID Discharge Date Discharge Status Discharge Condition Discharge Reason Percent Goals Met 2024-11-19 00:00:00 2025-01-17 00:00:00 Outpatient RECERTIFIC ATION ERIC EDDY [facility] [id number] 48.39
--- OUTSIDE RECORDS SUMMARY | 2025-01-16 19:00 | XMS_ITS | Clinical Summary ---
Author Organization Unknown Care Team Providers Care Cadastral Engineer Name Role Phone ADILIA FELIPE, VIOLETA Unavailable Unavailable SURJIT DAVID, ERIC Unavailable Unavailable Payers Payer Name Policy Type Policy Number Effective Date Expira tion Date MEDICAID [facility] [id number] Problems Condition Name Condition Details Condition Category Status Onset Date Resolution Date Last Treatment Date Treating Clinician Comments ESSENTIAL (PRIMARY) HYPERTENSION Active 09-21 00:00: 00 ATHSCL HEART DISEASE OF [place] CORONARY ARTERY W/O ANG PCTRS Active 09-21 [...] CIGARETTES, UNCOMPLICATE D Active 09-21 00:00: 00 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 09-21 00:00: 00 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) USE OF ANTITHROMBOT ICS/ANTIPLAT ELETS Active [...] release 24 hr 805 00:00: 00 Yes [id number] 60 mg AT BEDTIME 60 mg AT BEDTIME (route: oral) Med Classific ation: Cardiovas cular Therapy Agents oxycodone 5 mg tablet 09-04 00:00: 00 11-19 23:59 :00 No [id number] Unavailable 5 mg FIVE TIMES DAILY NEEDED 5 mg FIVE TIMES DAILY NEEDED (route: oral) Med Classific ation: Analgesic , Anti-infl ammatory or Antipyret ic gabapentin 600 mg tablet 09-03 00:00: 00 09-25 23:59 :00 No [id number] 600 mg 2 TIMES DAILY 600 mg 2 TIMES DAILY (route: oral) Med Classific ation: Central Nervous System Agents nicotine 21 mg/24 hr daily transdermal patch 08-30 00:00: 00 Yes [id number] Unavailable 21 mg DAILY 21 mg DAILY (route: transderma l) Med Classific ation: Chemical Dependenc y, Agents to Treat Alcohol Prep Pads 08-29 00:00: 00 05-18 23:59 :00 No [id number] 1 pads, medicat ed DIRECTED THREE TIMES DAILY AND NEEDED 1 pads, medicated DIRECTED THREE TIMES DAILY AND NEEDED (route: topical) Med Classific ation: Antisepti cs and Disinfect ants amitriptyli ne 50 mg tablet 08-29 00:00: 00 09-22 23:59 :00 No [id number] Unavailable 50 mg AT BEDTIME 50 mg AT BEDTIME (route: oral) Med Classific ation: Central Nervous System Agents Asmanex HFA 100 mcg/actuati on aerosol inhaler 08-29 00:00: 00 Yes [id number] 2 puff TWICE DAILY 2 puff TWICE DAILY (route: inhalation ) Med Classific ation: Respirato ry Therapy Agents atorvastati n 80 mg tablet 08-29 00:00: 00 Yes [id number] Unavailable 80 mg BEDTIME 80 mg BEDTIME (route: oral) Med Classific ation: Cardiovas cular Therapy Agents carvedilol 25 mg tablet 08-29 00:00: 00 Yes [id number] Unavailable 25 mg TWICE DAILY 25 mg TWICE DAILY (route: oral) Med Classific ation: Cardiovas cular Therapy Agents clopidogrel 75 mg tablet 08-29 00:00: 00 Yes [id number] 75 mg EVERY AM 75 mg EVERY AM (route: oral) Med Classific ation: Hematolog ical Agents docusate sodium 100 mg capsule 08-29 00:00: 00 09-25 23:59 :00 No [id number] Unavailable 100 mg TWICE DAILY 100 mg TWICE DAILY (route: oral) Med Classific ation: Gastroint estinal Therapy Agents escitalopra m 20 mg tablet 08-29 00:00: 00 Yes [id number] Unavailable 20 mg EVERY PM 20 mg EVERY PM (route: oral) Med Classific ation: Central Nervous System Agents FeroSul 325 mg (65 mg iron) tablet 08-29 00:00: 00 09-25 23:59 :00 No [id number] Unavailable 325 mg TWICE DAILY IN THE MORNING AND AT BEDTIME 325 mg TWICE DAILY IN THE MORNING AND AT BEDTIME (route: oral) Med Classific ation: Electroly te Balance-N utritiona l Products gabapentin 800 mg tablet 08-29 00:00: 00 09-22 23:59 :00 No [id number] 800 mg 2 TIMES DAILY 800 mg 2 TIMES DAILY (route: oral) Med Classific ation: Central Nervous System Agents hydralazine 25 mg tablet 08-29 00:00: 00 09-22 23:59 :00 No [id number] Unavailable 25 mg 3 TIMES DAILY 25 mg 3 TIMES DAILY (route: oral) Med Classific ation: Cardiovas cular Therapy Agents hydralazine 50 mg tablet 08-29 00:00: 00 09-25 23:59 :00 No [id number] Unavailable 50 mg THREE TIMES DAILY IN THE MORNING AT 50 mg THREE TIMES DAILY IN THE MORNING AT (route: oral) Med Classific ation: Cardiovas cular Therapy Agents mirtazapine 45 mg tablet 08-29 00:00: 00 Yes [id number] Unavailable 45 mg AT BEDTIME 45 mg AT BEDTIME (route: oral) Med Classific ation: Central Nervous System Agents omeprazole 20 mg capsule,del ayed release 08-29 00:00: 00 Yes [id number] 20 mg TWICE DAILY 20 mg TWICE DAILY (route: oral) Med Classific ation: Gastroint estinal Therapy Agents lisinopril 40 mg tablet 09-25 00:00: 00 Yes [id number] 40 mg DAILY 40 mg DAILY (route: oral) Med Classific ation: Cardiovas cular Therapy Agents metformin 1,000 mg tablet 09-25 00:00: 00 09-22 23:59 :00 No [id number] 1000 mg 2 TIMES DAILY 1000 mg 2 TIMES DAILY (route: oral) Med Classific ation: Endocrine multivitami n tablet 09-25 00:00: 00 Yes [id number] 1 tablet DAILY 1 tablet DAILY (route: oral) Med Classific ation: Electroly te Balance-N utritiona l Products nifedipine ER 60 mg tablet,exte nded release 09-25 00:00: 00 Yes [id number] 60 mg EVERY PM 60 mg EVERY PM (route: oral) Med Classific ation: Cardiovas cular Therapy Agents pioglitazon e 15 mg tablet 09-25 00:00: 00 Yes [id number] 15 mg DAILY 15 mg DAILY (route: oral) Med Classific ation: Endocrine Tresiba FlexTouch U-100 insulin 100 unit/mL (3 mL) subcutaneou s pen 09-25 00:00: 00 Yes [id number] 10 In unit DAILY 10 In unit DAILY (route: subcutaneo ) Med Classific ation: Endocrine aspirin 81 mg tablet 09-22 00:00: 00 Yes [id number] 1 tablet DAILY 1 tablet DAILY (route: oral) Med Classific ation: Hematolog ical Agents docusate sodium 100 mg capsule 09-22 00:00: 00 Yes [id number] 1 capsule 2 TIMES DAILY 1 capsule 2 TIMES DAILY (route: oral) Med Classific ation: Gastroint estinal Therapy Agents ferrous sulfate 325 mg (65 mg iron) tablet 09-22 00:00: 00 Yes [id number] 1 tablet 2 TIMES DAILY 1 tablet 2 TIMES DAILY (route: oral) Med Classific ation: Electroly te Balance-N utritiona l Products isosorbide mononitrate ER 30 mg tablet,exte nded release 24 hr 09-22 00:00: 00 Yes [id number] 1 tablet DAILY 1 tablet DAILY (route: [...] AWARENESS FOR SAFETY AND WILL NOTIFY CLINICAL MICROARRAY SPECIALIST AND PHYSICIAN/PROVIDER WITH ANY CHANGE IN CONDITION. [code = SKILLED NURSE WILL MAINTAIN SITUATIONAL AWARENESS FOR SAFETY AND WILL NOTIFY CLINICAL MICROARRAY SPECIALIST AND PHYSICIAN/PROVIDER WITH ANY CHANGE IN CONDITION.] [...] End Date/Time Encounter Type Admission Type Attending [facility] Care Department Encounter ID Discharge Date Discharge Status Discharge Condition Discharge Reason Percent Goals Met 2024-11-19 00:00:00 2025-01-17 00:00:00 Outpatient RECERTIFIC ATION ERIC EDDY [facility] [id number] 48.39
--- OUTSIDE RECORDS SUMMARY | 2025-01-16 19:00 | XMS_ITS | Clinical Summary ---
Author Organization Unknown Care Team Providers Care Framing Mill Operator Helper Name Role Phone ADILIA FELIPE, VIOLETA Unavailable Unavailable SURJIT DAVID, ERIC Unavailable Unavailable Payers Payer Name Policy Type Policy Number Effective Date Expira tion Date MEDICAID [facility] [id number] Problems Condition Name Condition Details Condition Category Status Onset Date Resolution Date Last Treatment Date Treating Clinician Comments ESSENTIAL (PRIMARY) HYPERTENSION Active 09-21 00:00: 00 ATHSCL HEART DISEASE OF [place] CORONARY ARTERY W/O ANG PCTRS Active 09-21 [...] CIGARETTES, UNCOMPLICATE D Active 09-21 00:00: 00 CERAMIC CHEMIST (CURRENT) USE OF INSULIN Active 09-21 00:00: 00 INTERMEDIATE (CURRENT) USE OF ANTITHROMBOT ICS/ANTIPLAT ELETS Active [...] release 24 hr 805 00:00: 00 Yes [id number] 60 mg AT BEDTIME 60 mg AT BEDTIME (route: oral) Med Classific ation: Cardiovas cular Therapy Agents oxycodone 5 mg tablet 09-04 00:00: 00 11-19 23:59 :00 No [id number] Unavailable 5 mg FIVE TIMES DAILY NEEDED 5 mg FIVE TIMES DAILY NEEDED (route: oral) Med Classific ation: Analgesic , Anti-infl ammatory or Antipyret ic gabapentin 600 mg tablet 09-03 00:00: 00 09-25 23:59 :00 No [id number] 600 mg 2 TIMES DAILY 600 mg 2 TIMES DAILY (route: oral) Med Classific ation: Central Nervous System Agents nicotine 21 mg/24 hr daily transdermal patch 08-30 00:00: 00 Yes [id number] Unavailable 21 mg DAILY 21 mg DAILY (route: transderma l) Med Classific ation: Chemical Dependenc y, Agents to Treat Alcohol Prep Pads 08-29 00:00: 00 05-18 23:59 :00 No [id number] 1 pads, medicat ed DIRECTED THREE TIMES DAILY AND NEEDED 1 pads, medicated DIRECTED THREE TIMES DAILY AND NEEDED (route: topical) Med Classific ation: Antisepti cs and Disinfect ants amitriptyli ne 50 mg tablet 08-29 00:00: 00 09-22 23:59 :00 No [id number] Unavailable 50 mg AT BEDTIME 50 mg AT BEDTIME (route: oral) Med Classific ation: Central Nervous System Agents Asmanex HFA 100 mcg/actuati on aerosol inhaler 08-29 00:00: 00 Yes [id number] 2 puff TWICE DAILY 2 puff TWICE DAILY (route: inhalation ) Med Classific ation: Respirato ry Therapy Agents atorvastati n 80 mg tablet 08-29 00:00: 00 Yes [id number] Unavailable 80 mg BEDTIME 80 mg BEDTIME (route: oral) Med Classific ation: Cardiovas cular Therapy Agents carvedilol 25 mg tablet 08-29 00:00: 00 Yes [id number] Unavailable 25 mg TWICE DAILY 25 mg TWICE DAILY (route: oral) Med Classific ation: Cardiovas cular Therapy Agents clopidogrel 75 mg tablet 08-29 00:00: 00 Yes [id number] 75 mg EVERY AM 75 mg EVERY AM (route: oral) Med Classific ation: Hematolog ical Agents docusate sodium 100 mg capsule 08-29 00:00: 00 09-25 23:59 :00 No [id number] Unavailable 100 mg TWICE DAILY 100 mg TWICE DAILY (route: oral) Med Classific ation: Gastroint estinal Therapy Agents escitalopra m 20 mg tablet 08-29 00:00: 00 Yes [id number] Unavailable 20 mg EVERY PM 20 mg EVERY PM (route: oral) Med Classific ation: Central Nervous System Agents FeroSul 325 mg (65 mg iron) tablet 08-29 00:00: 00 09-25 23:59 :00 No [id number] Unavailable 325 mg TWICE DAILY IN THE MORNING AND AT BEDTIME 325 mg TWICE DAILY IN THE MORNING AND AT BEDTIME (route: oral) Med Classific ation: Electroly te Balance-N utritiona l Products gabapentin 800 mg tablet 08-29 00:00: 00 09-22 23:59 :00 No [id number] 800 mg 2 TIMES DAILY 800 mg 2 TIMES DAILY (route: oral) Med Classific ation: Central Nervous System Agents hydralazine 25 mg tablet 08-29 00:00: 00 09-22 23:59 :00 No [id number] Unavailable 25 mg 3 TIMES DAILY 25 mg 3 TIMES DAILY (route: oral) Med Classific ation: Cardiovas cular Therapy Agents hydralazine 50 mg tablet 08-29 00:00: 00 09-25 23:59 :00 No [id number] Unavailable 50 mg THREE TIMES DAILY IN THE MORNING AT 50 mg THREE TIMES DAILY IN THE MORNING AT (route: oral) Med Classific ation: Cardiovas cular Therapy Agents mirtazapine 45 mg tablet 08-29 00:00: 00 Yes [id number] Unavailable 45 mg AT BEDTIME 45 mg AT BEDTIME (route: oral) Med Classific ation: Central Nervous System Agents omeprazole 20 mg capsule,del ayed release 08-29 00:00: 00 Yes [id number] 20 mg TWICE DAILY 20 mg TWICE DAILY (route: oral) Med Classific ation: Gastroint estinal Therapy Agents lisinopril 40 mg tablet 09-25 00:00: 00 Yes [id number] 40 mg DAILY 40 mg DAILY (route: oral) Med Classific ation: Cardiovas cular Therapy Agents metformin 1,000 mg tablet 09-25 00:00: 00 09-22 23:59 :00 No [id number] 1000 mg 2 TIMES DAILY 1000 mg 2 TIMES DAILY (route: oral) Med Classific ation: Endocrine multivitami n tablet 09-25 00:00: 00 Yes [id number] 1 tablet DAILY 1 tablet DAILY (route: oral) Med Classific ation: Electroly te Balance-N utritiona l Products nifedipine ER 60 mg tablet,exte nded release 09-25 00:00: 00 Yes [id number] 60 mg EVERY PM 60 mg EVERY PM (route: oral) Med Classific ation: Cardiovas cular Therapy Agents pioglitazon e 15 mg tablet 09-25 00:00: 00 Yes [id number] 15 mg DAILY 15 mg DAILY (route: oral) Med Classific ation: Endocrine Tresiba FlexTouch U-100 insulin 100 unit/mL (3 mL) subcutaneou s pen 09-25 00:00: 00 Yes [id number] 10 In unit DAILY 10 In unit DAILY (route: subcutaneo ) Med Classific ation: Endocrine aspirin 81 mg tablet 09-22 00:00: 00 Yes [id number] 1 tablet DAILY 1 tablet DAILY (route: oral) Med Classific ation: Hematolog ical Agents docusate sodium 100 mg capsule 09-22 00:00: 00 Yes [id number] 1 capsule 2 TIMES DAILY 1 capsule 2 TIMES DAILY (route: oral) Med Classific ation: Gastroint estinal Therapy Agents ferrous sulfate 325 mg (65 mg iron) tablet 09-22 00:00: 00 Yes [id number] 1 tablet 2 TIMES DAILY 1 tablet 2 TIMES DAILY (route: oral) Med Classific ation: Electroly te Balance-N utritiona l Products isosorbide mononitrate ER 30 mg tablet,exte nded release 24 hr 09-22 00:00: 00 Yes [id number] 1 tablet DAILY 1 tablet DAILY (route: [...] AWARENESS FOR SAFETY AND WILL NOTIFY CLINICAL TRACK GRINDER AND PHYSICIAN/PROVIDER WITH ANY CHANGE IN CONDITION. [code = SKILLED NURSE WILL MAINTAIN SITUATIONAL AWARENESS FOR SAFETY AND WILL NOTIFY CLINICAL TRACK GRINDER AND PHYSICIAN/PROVIDER WITH ANY CHANGE IN CONDITION.] [...] End Date/Time Encounter Type Admission Type Attending [facility] Care Department Encounter ID Discharge Date Discharge Status Discharge Condition Discharge Reason Percent Goals Met 2024-11-19 00:00:00 2025-01-17 00:00:00 Outpatient RECERTIFIC ATION ERIC EDDY [facility] [id number] 48.39
--- OUTSIDE RECORDS SUMMARY | 2025-01-16 19:00 | XMS_ITS | Clinical Summary ---
Author Organization Unknown Care Team Providers Care Quality Assurance Representative Name Role Phone ADILIA FELIPE, VIOLETA Unavailable Unavailable SURJIT DAVID, ERIC Unavailable Unavailable Payers Payer Name Policy Type Policy Number Effective Date Expira tion Date MEDICAID [facility] [id number] Problems Condition Name Condition Details Condition Category Status Onset Date Resolution Date Last Treatment Date Treating Clinician Comments ESSENTIAL (PRIMARY) HYPERTENSION Active 09-21 00:00: 00 ATHSCL HEART DISEASE OF [place] CORONARY ARTERY W/O ANG PCTRS Active 09-21 [...] CIGARETTES, UNCOMPLICATE D Active 09-21 00:00: 00 BUDDHIST MONK (CURRENT) USE OF INSULIN Active 09-21 00:00: 00 [facility] (CURRENT) USE OF ANTITHROMBOT ICS/ANTIPLAT ELETS Active [...] release 24 hr 805 00:00: 00 Yes [id number] 60 mg AT BEDTIME 60 mg AT BEDTIME (route: oral) Med Classific ation: Cardiovas cular Therapy Agents oxycodone 5 mg tablet 09-04 00:00: 00 11-19 23:59 :00 No [id number] Unavailable 5 mg FIVE TIMES DAILY NEEDED 5 mg FIVE TIMES DAILY NEEDED (route: oral) Med Classific ation: Analgesic , Anti-infl ammatory or Antipyret ic gabapentin 600 mg tablet 09-03 00:00: 00 09-25 23:59 :00 No [id number] 600 mg 2 TIMES DAILY 600 mg 2 TIMES DAILY (route: oral) Med Classific ation: Central Nervous System Agents nicotine 21 mg/24 hr daily transdermal patch 08-30 00:00: 00 Yes [id number] Unavailable 21 mg DAILY 21 mg DAILY (route: transderma l) Med Classific ation: Chemical Dependenc y, Agents to Treat Alcohol Prep Pads 08-29 00:00: 00 05-18 23:59 :00 No [id number] 1 pads, medicat ed DIRECTED THREE TIMES DAILY AND NEEDED 1 pads, medicated DIRECTED THREE TIMES DAILY AND NEEDED (route: topical) Med Classific ation: Antisepti cs and Disinfect ants amitriptyli ne 50 mg tablet 08-29 00:00: 00 09-22 23:59 :00 No [id number] Unavailable 50 mg AT BEDTIME 50 mg AT BEDTIME (route: oral) Med Classific ation: Central Nervous System Agents Asmanex HFA 100 mcg/actuati on aerosol inhaler 08-29 00:00: 00 Yes [id number] 2 puff TWICE DAILY 2 puff TWICE DAILY (route: inhalation ) Med Classific ation: Respirato ry Therapy Agents atorvastati n 80 mg tablet 08-29 00:00: 00 Yes [id number] Unavailable 80 mg BEDTIME 80 mg BEDTIME (route: oral) Med Classific ation: Cardiovas cular Therapy Agents carvedilol 25 mg tablet 08-29 00:00: 00 Yes [id number] Unavailable 25 mg TWICE DAILY 25 mg TWICE DAILY (route: oral) Med Classific ation: Cardiovas cular Therapy Agents clopidogrel 75 mg tablet 08-29 00:00: 00 Yes [id number] 75 mg EVERY AM 75 mg EVERY AM (route: oral) Med Classific ation: Hematolog ical Agents docusate sodium 100 mg capsule 08-29 00:00: 00 09-25 23:59 :00 No [id number] Unavailable 100 mg TWICE DAILY 100 mg TWICE DAILY (route: oral) Med Classific ation: Gastroint estinal Therapy Agents escitalopra m 20 mg tablet 08-29 00:00: 00 Yes [id number] Unavailable 20 mg EVERY PM 20 mg EVERY PM (route: oral) Med Classific ation: Central Nervous System Agents FeroSul 325 mg (65 mg iron) tablet 08-29 00:00: 00 09-25 23:59 :00 No [id number] Unavailable 325 mg TWICE DAILY IN THE MORNING AND AT BEDTIME 325 mg TWICE DAILY IN THE MORNING AND AT BEDTIME (route: oral) Med Classific ation: Electroly te Balance-N utritiona l Products gabapentin 800 mg tablet 08-29 00:00: 00 09-22 23:59 :00 No [id number] 800 mg 2 TIMES DAILY 800 mg 2 TIMES DAILY (route: oral) Med Classific ation: Central Nervous System Agents hydralazine 25 mg tablet 08-29 00:00: 00 09-22 23:59 :00 No [id number] Unavailable 25 mg 3 TIMES DAILY 25 mg 3 TIMES DAILY (route: oral) Med Classific ation: Cardiovas cular Therapy Agents hydralazine 50 mg tablet 08-29 00:00: 00 09-25 23:59 :00 No [id number] Unavailable 50 mg THREE TIMES DAILY IN THE MORNING AT 50 mg THREE TIMES DAILY IN THE MORNING AT (route: oral) Med Classific ation: Cardiovas cular Therapy Agents mirtazapine 45 mg tablet 08-29 00:00: 00 Yes [id number] Unavailable 45 mg AT BEDTIME 45 mg AT BEDTIME (route: oral) Med Classific ation: Central Nervous System Agents omeprazole 20 mg capsule,del ayed release 08-29 00:00: 00 Yes [id number] 20 mg TWICE DAILY 20 mg TWICE DAILY (route: oral) Med Classific ation: Gastroint estinal Therapy Agents lisinopril 40 mg tablet 09-25 00:00: 00 Yes [id number] 40 mg DAILY 40 mg DAILY (route: oral) Med Classific ation: Cardiovas cular Therapy Agents metformin 1,000 mg tablet 09-25 00:00: 00 09-22 23:59 :00 No [id number] 1000 mg 2 TIMES DAILY 1000 mg 2 TIMES DAILY (route: oral) Med Classific ation: Endocrine multivitami n tablet 09-25 00:00: 00 Yes [id number] 1 tablet DAILY 1 tablet DAILY (route: oral) Med Classific ation: Electroly te Balance-N utritiona l Products nifedipine ER 60 mg tablet,exte nded release 09-25 00:00: 00 Yes [id number] 60 mg EVERY PM 60 mg EVERY PM (route: oral) Med Classific ation: Cardiovas cular Therapy Agents pioglitazon e 15 mg tablet 09-25 00:00: 00 Yes [id number] 15 mg DAILY 15 mg DAILY (route: oral) Med Classific ation: Endocrine Tresiba FlexTouch U-100 insulin 100 unit/mL (3 mL) subcutaneou s pen 09-25 00:00: 00 Yes [id number] 10 In unit DAILY 10 In unit DAILY (route: subcutaneo ) Med Classific ation: Endocrine aspirin 81 mg tablet 09-22 00:00: 00 Yes [id number] 1 tablet DAILY 1 tablet DAILY (route: oral) Med Classific ation: Hematolog ical Agents docusate sodium 100 mg capsule 09-22 00:00: 00 Yes [id number] 1 capsule 2 TIMES DAILY 1 capsule 2 TIMES DAILY (route: oral) Med Classific ation: Gastroint estinal Therapy Agents ferrous sulfate 325 mg (65 mg iron) tablet 09-22 00:00: 00 Yes [id number] 1 tablet 2 TIMES DAILY 1 tablet 2 TIMES DAILY (route: oral) Med Classific ation: Electroly te Balance-N utritiona l Products isosorbide mononitrate ER 30 mg tablet,exte nded release 24 hr 09-22 00:00: 00 Yes [id number] 1 tablet DAILY 1 tablet DAILY (route: [...] PRE-POUR MEDICATION PER MEDICATION LIST TILL NEXT RESIDENTIAL VISIT [code = SKILLED NURSE TO PRE-POUR MEDICATION PER MEDICATION LIST TILL NEXT RESIDENTIAL VISIT] Future Scheduled Test PATIENT MA Y [...] AWARENESS FOR SAFETY AND WILL NOTIFY CLINICAL QA AUTOMATION DEVELOPER AND PHYSICIAN/PROVIDER WITH ANY CHANGE IN CONDITION. [code = SKILLED NURSE WILL MAINTAIN SITUATIONAL AWARENESS FOR SAFETY AND WILL NOTIFY CLINICAL QA AUTOMATION DEVELOPER AND PHYSICIAN/PROVIDER WITH ANY CHANGE IN CONDITION.] [...] End Date/Time Encounter Type Admission Type [facility] Department Encounter ID Discharge Date Discharge Status Discharge Condition Discharge Reason Percent Goals Met 2024-11-19 00:00:00 2025-01-17 00:00:00 Outpatient RECERTIFIC ATION ERIC EDDY [facility] [id number] 48.39
--- OUTSIDE RECORDS SUMMARY | 2025-01-16 19:00 | XMS_ITS | Clinical Summary ---
Author Organization Unknown Care Team Providers Care Broadcast Operations Director Name Role Phone ADILIA FELIPE, VIOLETA Unavailable Unavailable SURJIT DAVID, ERIC Unavailable Unavailable Payers Payer Name Policy Type Policy Number Effective Date Expira tion Date MEDICAID [facility] [id number] Problems Condition Name Condition Details Condition Category Status Onset Date Resolution Date Last Treatment Date Treating Clinician Comments ESSENTIAL (PRIMARY) HYPERTENSION Active 09-21 00:00: 00 ATHSCL HEART DISEASE OF [place] CORONARY ARTERY W/O ANG PCTRS Active 09-21 [...] CIGARETTES, UNCOMPLICATE D Active 09-21 00:00: 00 RATOPRINTER (CURRENT) USE OF INSULIN Active 09-21 00:00: [...] release 24 hr 805 00:00: 00 Yes [id number] 60 mg AT BEDTIME 60 mg AT BEDTIME (route: oral) Med Classific ation: Cardiovas cular Therapy Agents oxycodone 5 mg tablet 09-04 00:00: 00 11-19 23:59 :00 No [id number] Unavailable 5 mg FIVE TIMES DAILY NEEDED 5 mg FIVE TIMES DAILY NEEDED (route: oral) Med Classific ation: Analgesic , Anti-infl ammatory or Antipyret ic gabapentin 600 mg tablet 09-03 00:00: 00 09-25 23:59 :00 No [id number] 600 mg 2 TIMES DAILY 600 mg 2 TIMES DAILY (route: oral) Med Classific ation: Central Nervous System Agents nicotine 21 mg/24 hr daily transdermal patch 08-30 00:00: 00 Yes [id number] Unavailable 21 mg DAILY 21 mg DAILY (route: transderma l) Med Classific ation: Chemical Dependenc y, Agents to Treat Alcohol Prep Pads 08-29 00:00: 00 05-18 23:59 :00 No [id number] 1 pads, medicat ed DIRECTED THREE TIMES DAILY AND NEEDED 1 pads, medicated DIRECTED THREE TIMES DAILY AND NEEDED (route: topical) Med Classific ation: Antisepti cs and Disinfect ants amitriptyli ne 50 mg tablet 08-29 00:00: 00 09-22 23:59 :00 No [id number] Unavailable 50 mg AT BEDTIME 50 mg AT BEDTIME (route: oral) Med Classific ation: Central Nervous System Agents Asmanex HFA 100 mcg/actuati on aerosol inhaler 08-29 00:00: 00 Yes [id number] 2 puff TWICE DAILY 2 puff TWICE DAILY (route: inhalation ) Med Classific ation: Respirato ry Therapy Agents atorvastati n 80 mg tablet 08-29 00:00: 00 Yes [id number] Unavailable 80 mg BEDTIME 80 mg BEDTIME (route: oral) Med Classific ation: Cardiovas cular Therapy Agents carvedilol 25 mg tablet 08-29 00:00: 00 Yes [id number] Unavailable 25 mg TWICE DAILY 25 mg TWICE DAILY (route: oral) Med Classific ation: Cardiovas cular Therapy Agents clopidogrel 75 mg tablet 08-29 00:00: 00 Yes [id number] 75 mg EVERY AM 75 mg EVERY AM (route: oral) Med Classific ation: Hematolog ical Agents docusate sodium 100 mg capsule 08-29 00:00: 00 09-25 23:59 :00 No [id number] Unavailable 100 mg TWICE DAILY 100 mg TWICE DAILY (route: oral) Med Classific ation: Gastroint estinal Therapy Agents escitalopra m 20 mg tablet 08-29 00:00: 00 Yes [id number] Unavailable 20 mg EVERY PM 20 mg EVERY PM (route: oral) Med Classific ation: Central Nervous System Agents FeroSul 325 mg (65 mg iron) tablet 08-29 00:00: 00 09-25 23:59 :00 No [id number] Unavailable 325 mg TWICE DAILY IN THE MORNING AND AT BEDTIME 325 mg TWICE DAILY IN THE MORNING AND AT BEDTIME (route: oral) Med Classific ation: Electroly te Balance-N utritiona l Products gabapentin 800 mg tablet 08-29 00:00: 00 09-22 23:59 :00 No [id number] 800 mg 2 TIMES DAILY 800 mg 2 TIMES DAILY (route: oral) Med Classific ation: Central Nervous System Agents hydralazine 25 mg tablet 08-29 00:00: 00 09-22 23:59 :00 No [id number] Unavailable 25 mg 3 TIMES DAILY 25 mg 3 TIMES DAILY (route: oral) Med Classific ation: Cardiovas cular Therapy Agents hydralazine 50 mg tablet 08-29 00:00: 00 09-25 23:59 :00 No [id number] Unavailable 50 mg THREE TIMES DAILY IN THE MORNING AT 50 mg THREE TIMES DAILY IN THE MORNING AT (route: oral) Med Classific ation: Cardiovas cular Therapy Agents mirtazapine 45 mg tablet 08-29 00:00: 00 Yes [id number] Unavailable 45 mg AT BEDTIME 45 mg AT BEDTIME (route: oral) Med Classific ation: Central Nervous System Agents omeprazole 20 mg capsule,del ayed release 08-29 00:00: 00 Yes [id number] 20 mg TWICE DAILY 20 mg TWICE DAILY (route: oral) Med Classific ation: Gastroint estinal Therapy Agents lisinopril 40 mg tablet 09-25 00:00: 00 Yes [id number] 40 mg DAILY 40 mg DAILY (route: oral) Med Classific ation: Cardiovas cular Therapy Agents metformin 1,000 mg tablet 09-25 00:00: 00 09-22 23:59 :00 No [id number] 1000 mg 2 TIMES DAILY 1000 mg 2 TIMES DAILY (route: oral) Med Classific ation: Endocrine multivitami n tablet 09-25 00:00: 00 Yes [id number] 1 tablet DAILY 1 tablet DAILY (route: oral) Med Classific ation: Electroly te Balance-N utritiona l Products nifedipine ER 60 mg tablet,exte nded release 09-25 00:00: 00 Yes [id number] 60 mg EVERY PM 60 mg EVERY PM (route: oral) Med Classific ation: Cardiovas cular Therapy Agents pioglitazon e 15 mg tablet 09-25 00:00: 00 Yes [id number] 15 mg DAILY 15 mg DAILY (route: oral) Med Classific ation: Endocrine Tresiba FlexTouch U-100 insulin 100 unit/mL (3 mL) subcutaneou s pen 09-25 00:00: 00 Yes [id number] 10 In unit DAILY 10 In unit DAILY (route: subcutaneo ) Med Classific ation: Endocrine aspirin 81 mg tablet 09-22 00:00: 00 Yes [id number] 1 tablet DAILY 1 tablet DAILY (route: oral) Med Classific ation: Hematolog ical Agents docusate sodium 100 mg capsule 09-22 00:00: 00 Yes [id number] 1 capsule 2 TIMES DAILY 1 capsule 2 TIMES DAILY (route: oral) Med Classific ation: Gastroint estinal Therapy Agents ferrous sulfate 325 mg (65 mg iron) tablet 09-22 00:00: 00 Yes [id number] 1 tablet 2 TIMES DAILY 1 tablet 2 TIMES DAILY (route: oral) Med Classific ation: Electroly te Balance-N utritiona l Products isosorbide mononitrate ER 30 mg tablet,exte nded release 24 hr 09-22 00:00: 00 Yes [id number] 1 tablet DAILY 1 tablet DAILY (route: [...] PRE-POUR MEDICATION PER MEDICATION LIST TILL NEXT LONG TERM VISIT [code = SKILLED NURSE TO PRE-POUR MEDICATION PER MEDICATION LIST TILL NEXT LONG TERM VISIT] Future Scheduled Test PATIENT MA Y [...] MEDICATIONS DAILY AND PRE-POUR MEDICATIONS TILL NEXT LONG TERM VISIT PER MEDICATION LIST. [code = SKILLED NURSE TO ADMINISTER MEDICATIONS DAILY AND PRE-POUR MEDICATIONS TILL NEXT LONG TERM VISIT PER MEDICATION LIST.] Future Scheduled Test [...] AWARENESS FOR SAFETY AND WILL NOTIFY CLINICAL BODY MAN AND PHYSICIAN/PROVIDER WITH ANY CHANGE IN CONDITION. [code = SKILLED NURSE WILL MAINTAIN SITUATIONAL AWARENESS FOR SAFETY AND WILL NOTIFY CLINICAL BODY MAN AND PHYSICIAN/PROVIDER WITH ANY CHANGE IN CONDITION.] [...] CARE WILL BE ESTABLISHED THAT MEETS PATIENT'S LONG TERM NEEDS AND INCLUDES PATIENT GOAL FOR HOME [...] End Date/Time Encounter Type Admission Type Attending [facility] Care Department Encounter ID Discharge Date Discharge Status Discharge Condition Discharge Reason Percent Goals Met 2024-11-19 00:00:00 2025-01-17 00:00:00 Outpatient RECERTIFIC ATION ERIC EDDY [facility] [id number] 48.39
--- OUTSIDE RECORDS SUMMARY | 2025-01-16 19:00 | XMS_ITS | Clinical Summary ---
Author Organization Unknown Care Team Providers Care Branch Operations Coordinator Name Role Phone ADILIA FELIPE, VIOLETA Unavailable Unavailable SURJIT DAVID, ERIC Unavailable Unavailable Payers Payer Name Policy Type Policy Number Effective Date Expira tion Date MEDICAID [facility] [id number] Problems Condition Name Condition Details Condition Category Status Onset Date Resolution Date Last Treatment Date Treating Clinician Comments ESSENTIAL (PRIMARY) HYPERTENSION Active 09-21 00:00: 00 ATHSCL HEART DISEASE OF [place] CORONARY ARTERY W/O ANG PCTRS Active 09-21 [...] CIGARETTES, UNCOMPLICATE D Active 09-21 00:00: 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 09-21 [...] release 24 hr 805 00:00: 00 Yes [id number] 60 mg AT BEDTIME 60 mg AT BEDTIME (route: oral) Med Classific ation: Cardiovas cular Therapy Agents oxycodone 5 mg tablet 09-04 00:00: 00 11-19 23:59 :00 No [id number] Unavailable 5 mg FIVE TIMES DAILY NEEDED 5 mg FIVE TIMES DAILY NEEDED (route: oral) Med Classific ation: Analgesic , Anti-infl ammatory or Antipyret ic gabapentin 600 mg tablet 09-03 00:00: 00 09-25 23:59 :00 No [id number] 600 mg 2 TIMES DAILY 600 mg 2 TIMES DAILY (route: oral) Med Classific ation: Central Nervous System Agents nicotine 21 mg/24 hr daily transdermal patch 08-30 00:00: 00 Yes [id number] Unavailable 21 mg DAILY 21 mg DAILY (route: transderma l) Med Classific ation: Chemical Dependenc y, Agents to Treat Alcohol Prep Pads 08-29 00:00: 00 05-18 23:59 :00 No [id number] 1 pads, medicat ed DIRECTED THREE TIMES DAILY AND NEEDED 1 pads, medicated DIRECTED THREE TIMES DAILY AND NEEDED (route: topical) Med Classific ation: Antisepti cs and Disinfect ants amitriptyli ne 50 mg tablet 08-29 00:00: 00 09-22 23:59 :00 No [id number] Unavailable 50 mg AT BEDTIME 50 mg AT BEDTIME (route: oral) Med Classific ation: Central Nervous System Agents Asmanex HFA 100 mcg/actuati on aerosol inhaler 08-29 00:00: 00 Yes [id number] 2 puff TWICE DAILY 2 puff TWICE DAILY (route: inhalation ) Med Classific ation: Respirato ry Therapy Agents atorvastati n 80 mg tablet 08-29 00:00: 00 Yes [id number] Unavailable 80 mg BEDTIME 80 mg BEDTIME (route: oral) Med Classific ation: Cardiovas cular Therapy Agents carvedilol 25 mg tablet 08-29 00:00: 00 Yes [id number] Unavailable 25 mg TWICE DAILY 25 mg TWICE DAILY (route: oral) Med Classific ation: Cardiovas cular Therapy Agents clopidogrel 75 mg tablet 08-29 00:00: 00 Yes [id number] 75 mg EVERY AM 75 mg EVERY AM (route: oral) Med Classific ation: Hematolog ical Agents docusate sodium 100 mg capsule 08-29 00:00: 00 09-25 23:59 :00 No [id number] Unavailable 100 mg TWICE DAILY 100 mg TWICE DAILY (route: oral) Med Classific ation: Gastroint estinal Therapy Agents escitalopra m 20 mg tablet 08-29 00:00: 00 Yes [id number] Unavailable 20 mg EVERY PM 20 mg EVERY PM (route: oral) Med Classific ation: Central Nervous System Agents FeroSul 325 mg (65 mg iron) tablet 08-29 00:00: 00 09-25 23:59 :00 No [id number] Unavailable 325 mg TWICE DAILY IN THE MORNING AND AT BEDTIME 325 mg TWICE DAILY IN THE MORNING AND AT BEDTIME (route: oral) Med Classific ation: Electroly te Balance-N utritiona l Products gabapentin 800 mg tablet 08-29 00:00: 00 09-22 23:59 :00 No [id number] 800 mg 2 TIMES DAILY 800 mg 2 TIMES DAILY (route: oral) Med Classific ation: Central Nervous System Agents hydralazine 25 mg tablet 08-29 00:00: 00 09-22 23:59 :00 No [id number] Unavailable 25 mg 3 TIMES DAILY 25 mg 3 TIMES DAILY (route: oral) Med Classific ation: Cardiovas cular Therapy Agents hydralazine 50 mg tablet 08-29 00:00: 00 09-25 23:59 :00 No [id number] Unavailable 50 mg THREE TIMES DAILY IN THE MORNING AT 50 mg THREE TIMES DAILY IN THE MORNING AT (route: oral) Med Classific ation: Cardiovas cular Therapy Agents mirtazapine 45 mg tablet 08-29 00:00: 00 Yes [id number] Unavailable 45 mg AT BEDTIME 45 mg AT BEDTIME (route: oral) Med Classific ation: Central Nervous System Agents omeprazole 20 mg capsule,del ayed release 08-29 00:00: 00 Yes [id number] 20 mg TWICE DAILY 20 mg TWICE DAILY (route: oral) Med Classific ation: Gastroint estinal Therapy Agents lisinopril 40 mg tablet 09-25 00:00: 00 Yes [id number] 40 mg DAILY 40 mg DAILY (route: oral) Med Classific ation: Cardiovas cular Therapy Agents metformin 1,000 mg tablet 09-25 00:00: 00 09-22 23:59 :00 No [id number] 1000 mg 2 TIMES DAILY 1000 mg 2 TIMES DAILY (route: oral) Med Classific ation: Endocrine multivitami n tablet 09-25 00:00: 00 Yes [id number] 1 tablet DAILY 1 tablet DAILY (route: oral) Med Classific ation: Electroly te Balance-N utritiona l Products nifedipine ER 60 mg tablet,exte nded release 09-25 00:00: 00 Yes [id number] 60 mg EVERY PM 60 mg EVERY PM (route: oral) Med Classific ation: Cardiovas cular Therapy Agents pioglitazon e 15 mg tablet 09-25 00:00: 00 Yes [id number] 15 mg DAILY 15 mg DAILY (route: oral) Med Classific ation: Endocrine Tresiba FlexTouch U-100 insulin 100 unit/mL (3 mL) subcutaneou s pen 09-25 00:00: 00 Yes [id number] 10 In unit DAILY 10 In unit DAILY (route: subcutaneo ) Med Classific ation: Endocrine aspirin 81 mg tablet 09-22 00:00: 00 Yes [id number] 1 tablet DAILY 1 tablet DAILY (route: oral) Med Classific ation: Hematolog ical Agents docusate sodium 100 mg capsule 09-22 00:00: 00 Yes [id number] 1 capsule 2 TIMES DAILY 1 capsule 2 TIMES DAILY (route: oral) Med Classific ation: Gastroint estinal Therapy Agents ferrous sulfate 325 mg (65 mg iron) tablet 09-22 00:00: 00 Yes [id number] 1 tablet 2 TIMES DAILY 1 tablet 2 TIMES DAILY (route: oral) Med Classific ation: Electroly te Balance-N utritiona l Products isosorbide mononitrate ER 30 mg tablet,exte nded release 24 hr 09-22 00:00: 00 Yes [id number] 1 tablet DAILY 1 tablet DAILY (route: [...] PRE-POUR MEDICATION PER MEDICATION LIST TILL NEXT [facility] VISIT [code = SKILLED NURSE TO PRE-POUR MEDICATION PER MEDICATION LIST TILL NEXT [facility] VISIT] Future Scheduled Test PATIENT MA Y [...] MEDICATIONS DAILY AND PRE-POUR MEDICATIONS TILL NEXT [facility] VISIT PER MEDICATION LIST. [code = SKILLED NURSE TO ADMINISTER MEDICATIONS DAILY AND PRE-POUR MEDICATIONS TILL NEXT [facility] VISIT PER MEDICATION LIST.] Future Scheduled Test [...] AWARENESS FOR SAFETY AND WILL NOTIFY CLINICAL PRESS OPERATOR [employer] AND PHYSICIAN/PROVIDER WITH ANY CHANGE IN CONDITION. [code = SKILLED NURSE WILL MAINTAIN SITUATIONAL AWARENESS FOR SAFETY AND WILL NOTIFY CLINICAL PRESS OPERATOR [employer] AND PHYSICIAN/PROVIDER WITH ANY CHANGE IN CONDITION.] [...] CARE WILL BE ESTABLISHED THAT MEETS PATIENT'S [facility] NEEDS AND INCLUDES PATIENT GOAL FOR HOME [...] Date/Time Encounter Type Admission Type Attending [facility] Care Department Encounter ID Discharge Date Discharge Status Discharge Condition Discharge Reason Percent Goals Met 2024-11-19 00:00:00 2025-01-17 00:00:00 Outpatient RECERTIFIC ATION ERIC EDDY [facility] [id number] 48.39
--- OUTSIDE RECORDS SUMMARY | 2025-01-16 19:00 | XMS_ITS | Clinical Summary ---
Author Organization Unknown Care Team Providers Care Guide Alpine Name Role Phone ADILIA FELIPE, VIOLETA Unavailable Unavailable SURJIT DAVID, ERIC Unavailable Unavailable Payers Payer Name Policy Type Policy Number Effective Date Expira tion Date MEDICAID [facility] [id number] Problems Condition Name Condition Details Condition Category Status Onset Date Resolution Date Last Treatment Date Treating Clinician Comments ESSENTIAL (PRIMARY) HYPERTENSION Active 09-21 00:00: 00 ATHSCL HEART DISEASE OF [place] CORONARY ARTERY W/O ANG PCTRS Active [...] CIGARETTES, UNCOMPLICATE D Active 09-21 00:00: 00 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 09-21 00:00: 00 [facility] (CURRENT) USE OF ANTITHROMBOT ICS/ANTIPLAT ELETS Active [...] release 24 hr 805 00:00: 00 Yes [id number] 60 mg AT BEDTIME 60 mg AT BEDTIME (route: oral) Med Classific ation: Cardiovas cular Therapy Agents oxycodone 5 mg tablet 09-04 00:00: 00 11-19 23:59 :00 No [id number] Unavailable 5 mg FIVE TIMES DAILY NEEDED 5 mg FIVE TIMES DAILY NEEDED (route: oral) Med Classific ation: Analgesic , Anti-infl ammatory or Antipyret ic gabapentin 600 mg tablet 09-03 00:00: 00 09-25 23:59 :00 No [id number] 600 mg 2 TIMES DAILY 600 mg 2 TIMES DAILY (route: oral) Med Classific ation: Central Nervous System Agents nicotine 21 mg/24 hr daily transdermal patch 08-30 00:00: 00 Yes [id number] Unavailable 21 mg DAILY 21 mg DAILY (route: transderma l) Med Classific ation: Chemical Dependenc y, Agents to Treat Alcohol Prep Pads 08-29 00:00: 00 05-18 23:59 :00 No [id number] 1 pads, medicat ed DIRECTED THREE TIMES DAILY AND NEEDED 1 pads, medicated DIRECTED THREE TIMES DAILY AND NEEDED (route: topical) Med Classific ation: Antisepti cs and Disinfect ants amitriptyli ne 50 mg tablet 08-29 00:00: 00 09-22 23:59 :00 No [id number] Unavailable 50 mg AT BEDTIME 50 mg AT BEDTIME (route: oral) Med Classific ation: Central Nervous System Agents Asmanex HFA 100 mcg/actuati on aerosol inhaler 08-29 00:00: 00 Yes [id number] 2 puff TWICE DAILY 2 puff TWICE DAILY (route: inhalation ) Med Classific ation: Respirato ry Therapy Agents atorvastati n 80 mg tablet 08-29 00:00: 00 Yes [id number] Unavailable 80 mg BEDTIME 80 mg BEDTIME (route: oral) Med Classific ation: Cardiovas cular Therapy Agents carvedilol 25 mg tablet 08-29 00:00: 00 Yes [id number] Unavailable 25 mg TWICE DAILY 25 mg TWICE DAILY (route: oral) Med Classific ation: Cardiovas cular Therapy Agents clopidogrel 75 mg tablet 08-29 00:00: 00 Yes [id number] 75 mg EVERY AM 75 mg EVERY AM (route: oral) Med Classific ation: Hematolog ical Agents docusate sodium 100 mg capsule 08-29 00:00: 00 09-25 23:59 :00 No [id number] Unavailable 100 mg TWICE DAILY 100 mg TWICE DAILY (route: oral) Med Classific ation: Gastroint estinal Therapy Agents escitalopra m 20 mg tablet 08-29 00:00: 00 Yes [id number] Unavailable 20 mg EVERY PM 20 mg EVERY PM (route: oral) Med Classific ation: Central Nervous System Agents FeroSul 325 mg (65 mg iron) tablet 08-29 00:00: 00 09-25 23:59 :00 No [id number] Unavailable 325 mg TWICE DAILY IN THE MORNING AND AT BEDTIME 325 mg TWICE DAILY IN THE MORNING AND AT BEDTIME (route: oral) Med Classific ation: Electroly te Balance-N utritiona l Products gabapentin 800 mg tablet 08-29 00:00: 00 09-22 23:59 :00 No [id number] 800 mg 2 TIMES DAILY 800 mg 2 TIMES DAILY (route: oral) Med Classific ation: Central Nervous System Agents hydralazine 25 mg tablet 08-29 00:00: 00 09-22 23:59 :00 No [id number] Unavailable 25 mg 3 TIMES DAILY 25 mg 3 TIMES DAILY (route: oral) Med Classific ation: Cardiovas cular Therapy Agents hydralazine 50 mg tablet 08-29 00:00: 00 09-25 23:59 :00 No [id number] Unavailable 50 mg THREE TIMES DAILY IN THE MORNING AT 50 mg THREE TIMES DAILY IN THE MORNING AT (route: oral) Med Classific ation: Cardiovas cular Therapy Agents mirtazapine 45 mg tablet 08-29 00:00: 00 Yes [id number] Unavailable 45 mg AT BEDTIME 45 mg AT BEDTIME (route: oral) Med Classific ation: Central Nervous System Agents omeprazole 20 mg capsule,del ayed release 08-29 00:00: 00 Yes [id number] 20 mg TWICE DAILY 20 mg TWICE DAILY (route: oral) Med Classific ation: Gastroint estinal Therapy Agents lisinopril 40 mg tablet 09-25 00:00: 00 Yes [id number] 40 mg DAILY 40 mg DAILY (route: oral) Med Classific ation: Cardiovas cular Therapy Agents metformin 1,000 mg tablet 09-25 00:00: 00 09-22 23:59 :00 No [id number] 1000 mg 2 TIMES DAILY 1000 mg 2 TIMES DAILY (route: oral) Med Classific ation: Endocrine multivitami n tablet 09-25 00:00: 00 Yes [id number] 1 tablet DAILY 1 tablet DAILY (route: oral) Med Classific ation: Electroly te Balance-N utritiona l Products nifedipine ER 60 mg tablet,exte nded release 09-25 00:00: 00 Yes [id number] 60 mg EVERY PM 60 mg EVERY PM (route: oral) Med Classific ation: Cardiovas cular Therapy Agents pioglitazon e 15 mg tablet 09-25 00:00: 00 Yes [id number] 15 mg DAILY 15 mg DAILY (route: oral) Med Classific ation: Endocrine Tresiba FlexTouch U-100 insulin 100 unit/mL (3 mL) subcutaneou s pen 09-25 00:00: 00 Yes [id number] 10 In unit DAILY 10 In unit DAILY (route: subcutaneo ) Med Classific ation: Endocrine aspirin 81 mg tablet 09-22 00:00: 00 Yes [id number] 1 tablet DAILY 1 tablet DAILY (route: oral) Med Classific ation: Hematolog ical Agents docusate sodium 100 mg capsule 09-22 00:00: 00 Yes [id number] 1 capsule 2 TIMES DAILY 1 capsule 2 TIMES DAILY (route: oral) Med Classific ation: Gastroint estinal Therapy Agents ferrous sulfate 325 mg (65 mg iron) tablet 09-22 00:00: 00 Yes [id number] 1 tablet 2 TIMES DAILY 1 tablet 2 TIMES DAILY (route: oral) Med Classific ation: Electroly te Balance-N utritiona l Products isosorbide mononitrate ER 30 mg tablet,exte nded release 24 hr 09-22 00:00: 00 Yes [id number] 1 tablet DAILY 1 tablet DAILY (route: [...] AWARENESS FOR SAFETY AND WILL NOTIFY CLINICAL HIGH SCHOOL BIOLOGY TEACHER AND PHYSICIAN/PROVIDER WITH ANY CHANGE IN CONDITION. [code = SKILLED NURSE WILL MAINTAIN SITUATIONAL AWARENESS FOR SAFETY AND WILL NOTIFY CLINICAL HIGH SCHOOL BIOLOGY TEACHER AND PHYSICIAN/PROVIDER WITH ANY CHANGE IN [...] 00:00:00 Outpatient RECERTIFIC ATION ERIC EDDY [facility] [id number] 48.39
--- OUTSIDE RECORDS SUMMARY | 2025-01-16 19:00 | XMS_ITS | Clinical Summary ---
Author Organization Unknown Care Team Providers Care Medical Driver Name Role Phone ADILIA FELIPE, VIOLETA Unavailable Unavailable SURJIT DAVID, ERIC Unavailable Unavailable Payers Payer Name Policy Type Policy Number Effective Date Expira tion Date MEDICAID [facility] [id number] Problems Condition Name Condition Details Condition Category Status Onset Date Resolution Date Last Treatment Date Treating Clinician Comments ESSENTIAL (PRIMARY) HYPERTENSION Active 09-21 00:00: 00 ATHSCL HEART DISEASE OF [place] CORONARY ARTERY W/O ANG PCTRS Active 09-21 [...] CIGARETTES, UNCOMPLICATE D Active 09-21 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: 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 09-21 [...] release 24 hr 805 00:00: 00 Yes [id number] 60 mg AT BEDTIME 60 mg AT BEDTIME (route: oral) Med Classific ation: Cardiovas cular Therapy Agents oxycodone 5 mg tablet 09-04 00:00: 00 11-19 23:59 :00 No [id number] Unavailable 5 mg FIVE TIMES DAILY NEEDED 5 mg FIVE TIMES DAILY NEEDED (route: oral) Med Classific ation: Analgesic , Anti-infl ammatory or Antipyret ic gabapentin 600 mg tablet 09-03 00:00: 00 09-25 23:59 :00 No [id number] 600 mg 2 TIMES DAILY 600 mg 2 TIMES DAILY (route: oral) Med Classific ation: Central Nervous System Agents nicotine 21 mg/24 hr daily transdermal patch 08-30 00:00: 00 Yes [id number] Unavailable 21 mg DAILY 21 mg DAILY (route: transderma l) Med Classific ation: Chemical Dependenc y, Agents to Treat Alcohol Prep Pads 08-29 00:00: 00 05-18 23:59 :00 No [id number] 1 pads, medicat ed DIRECTED THREE TIMES DAILY AND NEEDED 1 pads, medicated DIRECTED THREE TIMES DAILY AND NEEDED (route: topical) Med Classific ation: Antisepti cs and Disinfect ants amitriptyli ne 50 mg tablet 08-29 00:00: 00 09-22 23:59 :00 No [id number] Unavailable 50 mg AT BEDTIME 50 mg AT BEDTIME (route: oral) Med Classific ation: Central Nervous System Agents Asmanex HFA 100 mcg/actuati on aerosol inhaler 08-29 00:00: 00 Yes [id number] 2 puff TWICE DAILY 2 puff TWICE DAILY (route: inhalation ) Med Classific ation: Respirato ry Therapy Agents atorvastati n 80 mg tablet 08-29 00:00: 00 Yes [id number] Unavailable 80 mg BEDTIME 80 mg BEDTIME (route: oral) Med Classific ation: Cardiovas cular Therapy Agents carvedilol 25 mg tablet 08-29 00:00: 00 Yes [id number] Unavailable 25 mg TWICE DAILY 25 mg TWICE DAILY (route: oral) Med Classific ation: Cardiovas cular Therapy Agents clopidogrel 75 mg tablet 08-29 00:00: 00 Yes [id number] 75 mg EVERY AM 75 mg EVERY AM (route: oral) Med Classific ation: Hematolog ical Agents docusate sodium 100 mg capsule 08-29 00:00: 00 09-25 23:59 :00 No [id number] Unavailable 100 mg TWICE DAILY 100 mg TWICE DAILY (route: oral) Med Classific ation: Gastroint estinal Therapy Agents escitalopra m 20 mg tablet 08-29 00:00: 00 Yes [id number] Unavailable 20 mg EVERY PM 20 mg EVERY PM (route: oral) Med Classific ation: Central Nervous System Agents FeroSul 325 mg (65 mg iron) tablet 08-29 00:00: 00 09-25 23:59 :00 No [id number] Unavailable 325 mg TWICE DAILY IN THE MORNING AND AT BEDTIME 325 mg TWICE DAILY IN THE MORNING AND AT BEDTIME (route: oral) Med Classific ation: Electroly te Balance-N utritiona l Products gabapentin 800 mg tablet 08-29 00:00: 00 09-22 23:59 :00 No [id number] 800 mg 2 TIMES DAILY 800 mg 2 TIMES DAILY (route: oral) Med Classific ation: Central Nervous System Agents hydralazine 25 mg tablet 08-29 00:00: 00 09-22 23:59 :00 No [id number] Unavailable 25 mg 3 TIMES DAILY 25 mg 3 TIMES DAILY (route: oral) Med Classific ation: Cardiovas cular Therapy Agents hydralazine 50 mg tablet 08-29 00:00: 00 09-25 23:59 :00 No [id number] Unavailable 50 mg THREE TIMES DAILY IN THE MORNING AT 50 mg THREE TIMES DAILY IN THE MORNING AT (route: oral) Med Classific ation: Cardiovas cular Therapy Agents mirtazapine 45 mg tablet 08-29 00:00: 00 Yes [id number] Unavailable 45 mg AT BEDTIME 45 mg AT BEDTIME (route: oral) Med Classific ation: Central Nervous System Agents omeprazole 20 mg capsule,del ayed release 08-29 00:00: 00 Yes [id number] 20 mg TWICE DAILY 20 mg TWICE DAILY (route: oral) Med Classific ation: Gastroint estinal Therapy Agents lisinopril 40 mg tablet 09-25 00:00: 00 Yes [id number] 40 mg DAILY 40 mg DAILY (route: oral) Med Classific ation: Cardiovas cular Therapy Agents metformin 1,000 mg tablet 09-25 00:00: 00 09-22 23:59 :00 No [id number] 1000 mg 2 TIMES DAILY 1000 mg 2 TIMES DAILY (route: oral) Med Classific ation: Endocrine multivitami n tablet 09-25 00:00: 00 Yes [id number] 1 tablet DAILY 1 tablet DAILY (route: oral) Med Classific ation: Electroly te Balance-N utritiona l Products nifedipine ER 60 mg tablet,exte nded release 09-25 00:00: 00 Yes [id number] 60 mg EVERY PM 60 mg EVERY PM (route: oral) Med Classific ation: Cardiovas cular Therapy Agents pioglitazon e 15 mg tablet 09-25 00:00: 00 Yes [id number] 15 mg DAILY 15 mg DAILY (route: oral) Med Classific ation: Endocrine Tresiba FlexTouch U-100 insulin 100 unit/mL (3 mL) subcutaneou s pen 09-25 00:00: 00 Yes [id number] 10 In unit DAILY 10 In unit DAILY (route: subcutaneo ) Med Classific ation: Endocrine aspirin 81 mg tablet 09-22 00:00: 00 Yes [id number] 1 tablet DAILY 1 tablet DAILY (route: oral) Med Classific ation: Hematolog ical Agents docusate sodium 100 mg capsule 09-22 00:00: 00 Yes [id number] 1 capsule 2 TIMES DAILY 1 capsule 2 TIMES DAILY (route: oral) Med Classific ation: Gastroint estinal Therapy Agents ferrous sulfate 325 mg (65 mg iron) tablet 09-22 00:00: 00 Yes [id number] 1 tablet 2 TIMES DAILY 1 tablet 2 TIMES DAILY (route: oral) Med Classific ation: Electroly te Balance-N utritiona l Products isosorbide mononitrate ER 30 mg tablet,exte nded release 24 hr 09-22 00:00: 00 Yes [id number] 1 tablet DAILY 1 tablet DAILY (route: [...] PRE-POUR MEDICATION PER MEDICATION LIST TILL NEXT ASSISTED VISIT [code = SKILLED NURSE TO PRE-POUR MEDICATION PER MEDICATION LIST TILL NEXT ASSISTED VISIT] Future Scheduled Test PATIENT MA Y [...] MEDICATIONS DAILY AND PRE-POUR MEDICATIONS TILL NEXT ASSISTED VISIT PER MEDICATION LIST. [code = SKILLED NURSE TO ADMINISTER MEDICATIONS DAILY AND PRE-POUR MEDICATIONS TILL NEXT ASSISTED VISIT PER MEDICATION LIST.] Future Scheduled Test [...] AWARENESS FOR SAFETY AND WILL NOTIFY CLINICAL PROGRAM DIRECTOR GROUP WORK AND PHYSICIAN/PROVIDER WITH ANY CHANGE IN CONDITION. [code = SKILLED NURSE WILL MAINTAIN SITUATIONAL AWARENESS FOR SAFETY AND WILL NOTIFY CLINICAL PROGRAM DIRECTOR GROUP WORK AND PHYSICIAN/PROVIDER WITH ANY CHANGE IN CONDITION.] [...] CARE WILL BE ESTABLISHED THAT MEETS PATIENT'S ASSISTED NEEDS AND INCLUDES PATIENT GOAL FOR HOME [...] RECERTIFIC ATION ERIC EDDY [facility] [id number] 48.39
--- OUTSIDE RECORDS SUMMARY | 2025-01-16 19:00 | XMS_ITS | Clinical Summary ---
Author Organization Unknown Care Team Providers Care Training Generalist Name Role Phone ADILIA FELIPE, VIOLETA Unavailable Unavailable SURJIT DAVID, ERIC Unavailable Unavailable Payers Payer Name Policy Type Policy Number Effective Date Expira tion Date MEDICAID [facility] [id number] Problems Condition Name Condition Details Condition Category Status Onset Date Resolution Date Last Treatment Date Treating Clinician Comments ESSENTIAL (PRIMARY) HYPERTENSION Active 09-21 00:00: 00 ATHSCL HEART DISEASE OF [place] CORONARY ARTERY W/O ANG PCTRS Active 09-21 [...] CIGARETTES, UNCOMPLICATE D Active 09-21 00:00: 00 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 09-21 [...] release 24 hr 805 00:00: 00 Yes [id number] 60 mg AT BEDTIME 60 mg AT BEDTIME (route: oral) Med Classific ation: Cardiovas cular Therapy Agents oxycodone 5 mg tablet 09-04 00:00: 00 11-19 23:59 :00 No [id number] Unavailable 5 mg FIVE TIMES DAILY NEEDED 5 mg FIVE TIMES DAILY NEEDED (route: oral) Med Classific ation: Analgesic , Anti-infl ammatory or Antipyret ic gabapentin 600 mg tablet 09-03 00:00: 00 09-25 23:59 :00 No [id number] 600 mg 2 TIMES DAILY 600 mg 2 TIMES DAILY (route: oral) Med Classific ation: Central Nervous System Agents nicotine 21 mg/24 hr daily transdermal patch 08-30 00:00: 00 Yes [id number] Unavailable 21 mg DAILY 21 mg DAILY (route: transderma l) Med Classific ation: Chemical Dependenc y, Agents to Treat Alcohol Prep Pads 08-29 00:00: 00 05-18 23:59 :00 No [id number] 1 pads, medicat ed DIRECTED THREE TIMES DAILY AND NEEDED 1 pads, medicated DIRECTED THREE TIMES DAILY AND NEEDED (route: topical) Med Classific ation: Antisepti cs and Disinfect ants amitriptyli ne 50 mg tablet 08-29 00:00: 00 09-22 23:59 :00 No [id number] Unavailable 50 mg AT BEDTIME 50 mg AT BEDTIME (route: oral) Med Classific ation: Central Nervous System Agents Asmanex HFA 100 mcg/actuati on aerosol inhaler 08-29 00:00: 00 Yes [id number] 2 puff TWICE DAILY 2 puff TWICE DAILY (route: inhalation ) Med Classific ation: Respirato ry Therapy Agents atorvastati n 80 mg tablet 08-29 00:00: 00 Yes [id number] Unavailable 80 mg BEDTIME 80 mg BEDTIME (route: oral) Med Classific ation: Cardiovas cular Therapy Agents carvedilol 25 mg tablet 08-29 00:00: 00 Yes [id number] Unavailable 25 mg TWICE DAILY 25 mg TWICE DAILY (route: oral) Med Classific ation: Cardiovas cular Therapy Agents clopidogrel 75 mg tablet 08-29 00:00: 00 Yes [id number] 75 mg EVERY AM 75 mg EVERY AM (route: oral) Med Classific ation: Hematolog ical Agents docusate sodium 100 mg capsule 08-29 00:00: 00 09-25 23:59 :00 No [id number] Unavailable 100 mg TWICE DAILY 100 mg TWICE DAILY (route: oral) Med Classific ation: Gastroint estinal Therapy Agents escitalopra m 20 mg tablet 08-29 00:00: 00 Yes [id number] Unavailable 20 mg EVERY PM 20 mg EVERY PM (route: oral) Med Classific ation: Central Nervous System Agents FeroSul 325 mg (65 mg iron) tablet 08-29 00:00: 00 09-25 23:59 :00 No [id number] Unavailable 325 mg TWICE DAILY IN THE MORNING AND AT BEDTIME 325 mg TWICE DAILY IN THE MORNING AND AT BEDTIME (route: oral) Med Classific ation: Electroly te Balance-N utritiona l Products gabapentin 800 mg tablet 08-29 00:00: 00 09-22 23:59 :00 No [id number] 800 mg 2 TIMES DAILY 800 mg 2 TIMES DAILY (route: oral) Med Classific ation: Central Nervous System Agents hydralazine 25 mg tablet 08-29 00:00: 00 09-22 23:59 :00 No [id number] Unavailable 25 mg 3 TIMES DAILY 25 mg 3 TIMES DAILY (route: oral) Med Classific ation: Cardiovas cular Therapy Agents hydralazine 50 mg tablet 08-29 00:00: 00 09-25 23:59 :00 No [id number] Unavailable 50 mg THREE TIMES DAILY IN THE MORNING AT 50 mg THREE TIMES DAILY IN THE MORNING AT (route: oral) Med Classific ation: Cardiovas cular Therapy Agents mirtazapine 45 mg tablet 08-29 00:00: 00 Yes [id number] Unavailable 45 mg AT BEDTIME 45 mg AT BEDTIME (route: oral) Med Classific ation: Central Nervous System Agents omeprazole 20 mg capsule,del ayed release 08-29 00:00: 00 Yes [id number] 20 mg TWICE DAILY 20 mg TWICE DAILY (route: oral) Med Classific ation: Gastroint estinal Therapy Agents lisinopril 40 mg tablet 09-25 00:00: 00 Yes [id number] 40 mg DAILY 40 mg DAILY (route: oral) Med Classific ation: Cardiovas cular Therapy Agents metformin 1,000 mg tablet 09-25 00:00: 00 09-22 23:59 :00 No [id number] 1000 mg 2 TIMES DAILY 1000 mg 2 TIMES DAILY (route: oral) Med Classific ation: Endocrine multivitami n tablet 09-25 00:00: 00 Yes [id number] 1 tablet DAILY 1 tablet DAILY (route: oral) Med Classific ation: Electroly te Balance-N utritiona l Products nifedipine ER 60 mg tablet,exte nded release 09-25 00:00: 00 Yes [id number] 60 mg EVERY PM 60 mg EVERY PM (route: oral) Med Classific ation: Cardiovas cular Therapy Agents pioglitazon e 15 mg tablet 09-25 00:00: 00 Yes [id number] 15 mg DAILY 15 mg DAILY (route: oral) Med Classific ation: Endocrine Tresiba FlexTouch U-100 insulin 100 unit/mL (3 mL) subcutaneou s pen 09-25 00:00: 00 Yes [id number] 10 In unit DAILY 10 In unit DAILY (route: subcutaneo ) Med Classific ation: Endocrine aspirin 81 mg tablet 09-22 00:00: 00 Yes [id number] 1 tablet DAILY 1 tablet DAILY (route: oral) Med Classific ation: Hematolog ical Agents docusate sodium 100 mg capsule 09-22 00:00: 00 Yes [id number] 1 capsule 2 TIMES DAILY 1 capsule 2 TIMES DAILY (route: oral) Med Classific ation: Gastroint estinal Therapy Agents ferrous sulfate 325 mg (65 mg iron) tablet 09-22 00:00: 00 Yes [id number] 1 tablet 2 TIMES DAILY 1 tablet 2 TIMES DAILY (route: oral) Med Classific ation: Electroly te Balance-N utritiona l Products isosorbide mononitrate ER 30 mg tablet,exte nded release 24 hr 09-22 00:00: 00 Yes [id number] 1 tablet DAILY 1 tablet DAILY (route: [...] AWARENESS FOR SAFETY AND WILL NOTIFY CLINICAL MEDIA INTERN AND PHYSICIAN/PROVIDER WITH ANY CHANGE IN CONDITION. [code = SKILLED NURSE WILL MAINTAIN SITUATIONAL AWARENESS FOR SAFETY AND WILL NOTIFY CLINICAL MEDIA INTERN AND PHYSICIAN/PROVIDER WITH ANY CHANGE IN CONDITION.] [...] 00:00:00 Outpatient RECERTIFIC ATION ERIC EDDY [facility] [id number] 48.39
--- OUTSIDE RECORDS SUMMARY | 2025-01-16 19:00 | XMS_ITS | Clinical Summary ---
Author Organization Unknown Care Team Providers Care Car Varnisher Name Role Phone ADILIA FELIPE, VIOLETA Unavailable Unavailable SURJIT DAVID, ERIC Unavailable Unavailable Payers Payer Name Policy Type Policy Number Effective Date Expira tion Date MEDICAID [facility] [id number] Problems Condition Name Condition Details Condition Category Status Onset Date Resolution Date Last Treatment Date Treating Clinician Comments ESSENTIAL (PRIMARY) HYPERTENSION Active 09-21 00:00: 00 ATHSCL HEART DISEASE OF [place] CORONARY ARTERY W/O ANG PCTRS Active 09-21 [...] CIGARETTES, UNCOMPLICATE D Active 09-21 00:00: 00 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 09-21 00:00: 00 USP (CURRENT) USE OF ANTITHROMBOT ICS/ANTIPLAT ELETS Active [...] release 24 hr 805 00:00: 00 Yes [id number] 60 mg AT BEDTIME 60 mg AT BEDTIME (route: oral) Med Classific ation: Cardiovas cular Therapy Agents oxycodone 5 mg tablet 09-04 00:00: 00 11-19 23:59 :00 No [id number] Unavailable 5 mg FIVE TIMES DAILY NEEDED 5 mg FIVE TIMES DAILY NEEDED (route: oral) Med Classific ation: Analgesic , Anti-infl ammatory or Antipyret ic gabapentin 600 mg tablet 09-03 00:00: 00 09-25 23:59 :00 No [id number] 600 mg 2 TIMES DAILY 600 mg 2 TIMES DAILY (route: oral) Med Classific ation: Central Nervous System Agents nicotine 21 mg/24 hr daily transdermal patch 08-30 00:00: 00 Yes [id number] Unavailable 21 mg DAILY 21 mg DAILY (route: transderma l) Med Classific ation: Chemical Dependenc y, Agents to Treat Alcohol Prep Pads 08-29 00:00: 00 05-18 23:59 :00 No [id number] 1 pads, medicat ed DIRECTED THREE TIMES DAILY AND NEEDED 1 pads, medicated DIRECTED THREE TIMES DAILY AND NEEDED (route: topical) Med Classific ation: Antisepti cs and Disinfect ants amitriptyli ne 50 mg tablet 08-29 00:00: 00 09-22 23:59 :00 No [id number] Unavailable 50 mg AT BEDTIME 50 mg AT BEDTIME (route: oral) Med Classific ation: Central Nervous System Agents Asmanex HFA 100 mcg/actuati on aerosol inhaler 08-29 00:00: 00 Yes [id number] 2 puff TWICE DAILY 2 puff TWICE DAILY (route: inhalation ) Med Classific ation: Respirato ry Therapy Agents atorvastati n 80 mg tablet 08-29 00:00: 00 Yes [id number] Unavailable 80 mg BEDTIME 80 mg BEDTIME (route: oral) Med Classific ation: Cardiovas cular Therapy Agents carvedilol 25 mg tablet 08-29 00:00: 00 Yes [id number] Unavailable 25 mg TWICE DAILY 25 mg TWICE DAILY (route: oral) Med Classific ation: Cardiovas cular Therapy Agents clopidogrel 75 mg tablet 08-29 00:00: 00 Yes [id number] 75 mg EVERY AM 75 mg EVERY AM (route: oral) Med Classific ation: Hematolog ical Agents docusate sodium 100 mg capsule 08-29 00:00: 00 09-25 23:59 :00 No [id number] Unavailable 100 mg TWICE DAILY 100 mg TWICE DAILY (route: oral) Med Classific ation: Gastroint estinal Therapy Agents escitalopra m 20 mg tablet 08-29 00:00: 00 Yes [id number] Unavailable 20 mg EVERY PM 20 mg EVERY PM (route: oral) Med Classific ation: Central Nervous System Agents FeroSul 325 mg (65 mg iron) tablet 08-29 00:00: 00 09-25 23:59 :00 No [id number] Unavailable 325 mg TWICE DAILY IN THE MORNING AND AT BEDTIME 325 mg TWICE DAILY IN THE MORNING AND AT BEDTIME (route: oral) Med Classific ation: Electroly te Balance-N utritiona l Products gabapentin 800 mg tablet 08-29 00:00: 00 09-22 23:59 :00 No [id number] 800 mg 2 TIMES DAILY 800 mg 2 TIMES DAILY (route: oral) Med Classific ation: Central Nervous System Agents hydralazine 25 mg tablet 08-29 00:00: 00 09-22 23:59 :00 No [id number] Unavailable 25 mg 3 TIMES DAILY 25 mg 3 TIMES DAILY (route: oral) Med Classific ation: Cardiovas cular Therapy Agents hydralazine 50 mg tablet 08-29 00:00: 00 09-25 23:59 :00 No [id number] Unavailable 50 mg THREE TIMES DAILY IN THE MORNING AT 50 mg THREE TIMES DAILY IN THE MORNING AT (route: oral) Med Classific ation: Cardiovas cular Therapy Agents mirtazapine 45 mg tablet 08-29 00:00: 00 Yes [id number] Unavailable 45 mg AT BEDTIME 45 mg AT BEDTIME (route: oral) Med Classific ation: Central Nervous System Agents omeprazole 20 mg capsule,del ayed release 08-29 00:00: 00 Yes [id number] 20 mg TWICE DAILY 20 mg TWICE DAILY (route: oral) Med Classific ation: Gastroint estinal Therapy Agents lisinopril 40 mg tablet 09-25 00:00: 00 Yes [id number] 40 mg DAILY 40 mg DAILY (route: oral) Med Classific ation: Cardiovas cular Therapy Agents metformin 1,000 mg tablet 09-25 00:00: 00 09-22 23:59 :00 No [id number] 1000 mg 2 TIMES DAILY 1000 mg 2 TIMES DAILY (route: oral) Med Classific ation: Endocrine multivitami n tablet 09-25 00:00: 00 Yes [id number] 1 tablet DAILY 1 tablet DAILY (route: oral) Med Classific ation: Electroly te Balance-N utritiona l Products nifedipine ER 60 mg tablet,exte nded release 09-25 00:00: 00 Yes [id number] 60 mg EVERY PM 60 mg EVERY PM (route: oral) Med Classific ation: Cardiovas cular Therapy Agents pioglitazon e 15 mg tablet 09-25 00:00: 00 Yes [id number] 15 mg DAILY 15 mg DAILY (route: oral) Med Classific ation: Endocrine Tresiba FlexTouch U-100 insulin 100 unit/mL (3 mL) subcutaneou s pen 09-25 00:00: 00 Yes [id number] 10 In unit DAILY 10 In unit DAILY (route: subcutaneo ) Med Classific ation: Endocrine aspirin 81 mg tablet 09-22 00:00: 00 Yes [id number] 1 tablet DAILY 1 tablet DAILY (route: oral) Med Classific ation: Hematolog ical Agents docusate sodium 100 mg capsule 09-22 00:00: 00 Yes [id number] 1 capsule 2 TIMES DAILY 1 capsule 2 TIMES DAILY (route: oral) Med Classific ation: Gastroint estinal Therapy Agents ferrous sulfate 325 mg (65 mg iron) tablet 09-22 00:00: 00 Yes [id number] 1 tablet 2 TIMES DAILY 1 tablet 2 TIMES DAILY (route: oral) Med Classific ation: Electroly te Balance-N utritiona l Products isosorbide mononitrate ER 30 mg tablet,exte nded release 24 hr 09-22 00:00: 00 Yes [id number] 1 tablet DAILY 1 tablet DAILY (route: [...] AWARENESS FOR SAFETY AND WILL NOTIFY CLINICAL CLIPPER AUTOMATIC AND PHYSICIAN/PROVIDER WITH ANY CHANGE IN CONDITION. [code = SKILLED NURSE WILL MAINTAIN SITUATIONAL AWARENESS FOR SAFETY AND WILL NOTIFY CLINICAL CLIPPER AUTOMATIC AND PHYSICIAN/PROVIDER WITH ANY CHANGE IN CONDITION.] [...] ATION ERIC EDDY [facility] [id number] 48.39
--- OUTSIDE RECORDS SUMMARY | 2025-01-16 19:00 | XMS_ITS | Clinical Summary ---
Author Organization Unknown Care Team Providers Care Flue Lining Dipper Name Role Phone ADILIA FELIPE, VIOLETA Unavailable Unavailable SURJIT DAVID, ERIC Unavailable Unavailable Payers Payer Name Policy Type Policy Number Effective Date Expira tion Date MEDICAID [facility] [id number] Problems Condition Name Condition Details Condition Category Status Onset Date Resolution Date Last Treatment Date Treating Clinician Comments ESSENTIAL (PRIMARY) HYPERTENSION Active 09-21 00:00: 00 ATHSCL HEART DISEASE OF [place] CORONARY ARTERY W/O ANG PCTRS Active 09-21 [...] CIGARETTES, UNCOMPLICATE D Active 09-21 00:00: 00 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 09-21 00:00: 00 LONGTERM (CURRENT) USE OF ANTITHROMBOT ICS/ANTIPLAT ELETS Active [...] release 24 hr 805 00:00: 00 Yes [id number] 60 mg AT BEDTIME 60 mg AT BEDTIME (route: oral) Med Classific ation: Cardiovas cular Therapy Agents oxycodone 5 mg tablet 09-04 00:00: 00 11-19 23:59 :00 No [id number] Unavailable 5 mg FIVE TIMES DAILY NEEDED 5 mg FIVE TIMES DAILY NEEDED (route: oral) Med Classific ation: Analgesic , Anti-infl ammatory or Antipyret ic gabapentin 600 mg tablet 09-03 00:00: 00 09-25 23:59 :00 No [id number] 600 mg 2 TIMES DAILY 600 mg 2 TIMES DAILY (route: oral) Med Classific ation: Central Nervous System Agents nicotine 21 mg/24 hr daily transdermal patch 08-30 00:00: 00 Yes [id number] Unavailable 21 mg DAILY 21 mg DAILY (route: transderma l) Med Classific ation: Chemical Dependenc y, Agents to Treat Alcohol Prep Pads 08-29 00:00: 00 05-18 23:59 :00 No [id number] 1 pads, medicat ed DIRECTED THREE TIMES DAILY AND NEEDED 1 pads, medicated DIRECTED THREE TIMES DAILY AND NEEDED (route: topical) Med Classific ation: Antisepti cs and Disinfect ants amitriptyli ne 50 mg tablet 08-29 00:00: 00 09-22 23:59 :00 No [id number] Unavailable 50 mg AT BEDTIME 50 mg AT BEDTIME (route: oral) Med Classific ation: Central Nervous System Agents Asmanex HFA 100 mcg/actuati on aerosol inhaler 08-29 00:00: 00 Yes [id number] 2 puff TWICE DAILY 2 puff TWICE DAILY (route: inhalation ) Med Classific ation: Respirato ry Therapy Agents atorvastati n 80 mg tablet 08-29 00:00: 00 Yes [id number] Unavailable 80 mg BEDTIME 80 mg BEDTIME (route: oral) Med Classific ation: Cardiovas cular Therapy Agents carvedilol 25 mg tablet 08-29 00:00: 00 Yes [id number] Unavailable 25 mg TWICE DAILY 25 mg TWICE DAILY (route: oral) Med Classific ation: Cardiovas cular Therapy Agents clopidogrel 75 mg tablet 08-29 00:00: 00 Yes [id number] 75 mg EVERY AM 75 mg EVERY AM (route: oral) Med Classific ation: Hematolog ical Agents docusate sodium 100 mg capsule 08-29 00:00: 00 09-25 23:59 :00 No [id number] Unavailable 100 mg TWICE DAILY 100 mg TWICE DAILY (route: oral) Med Classific ation: Gastroint estinal Therapy Agents escitalopra m 20 mg tablet 08-29 00:00: 00 Yes [id number] Unavailable 20 mg EVERY PM 20 mg EVERY PM (route: oral) Med Classific ation: Central Nervous System Agents FeroSul 325 mg (65 mg iron) tablet 08-29 00:00: 00 09-25 23:59 :00 No [id number] Unavailable 325 mg TWICE DAILY IN THE MORNING AND AT BEDTIME 325 mg TWICE DAILY IN THE MORNING AND AT BEDTIME (route: oral) Med Classific ation: Electroly te Balance-N utritiona l Products gabapentin 800 mg tablet 08-29 00:00: 00 09-22 23:59 :00 No [id number] 800 mg 2 TIMES DAILY 800 mg 2 TIMES DAILY (route: oral) Med Classific ation: Central Nervous System Agents hydralazine 25 mg tablet 08-29 00:00: 00 09-22 23:59 :00 No [id number] Unavailable 25 mg 3 TIMES DAILY 25 mg 3 TIMES DAILY (route: oral) Med Classific ation: Cardiovas cular Therapy Agents hydralazine 50 mg tablet 08-29 00:00: 00 09-25 23:59 :00 No [id number] Unavailable 50 mg THREE TIMES DAILY IN THE MORNING AT 50 mg THREE TIMES DAILY IN THE MORNING AT (route: oral) Med Classific ation: Cardiovas cular Therapy Agents mirtazapine 45 mg tablet 08-29 00:00: 00 Yes [id number] Unavailable 45 mg AT BEDTIME 45 mg AT BEDTIME (route: oral) Med Classific ation: Central Nervous System Agents omeprazole 20 mg capsule,del ayed release 08-29 00:00: 00 Yes [id number] 20 mg TWICE DAILY 20 mg TWICE DAILY (route: oral) Med Classific ation: Gastroint estinal Therapy Agents lisinopril 40 mg tablet 09-25 00:00: 00 Yes [id number] 40 mg DAILY 40 mg DAILY (route: oral) Med Classific ation: Cardiovas cular Therapy Agents metformin 1,000 mg tablet 09-25 00:00: 00 09-22 23:59 :00 No [id number] 1000 mg 2 TIMES DAILY 1000 mg 2 TIMES DAILY (route: oral) Med Classific ation: Endocrine multivitami n tablet 09-25 00:00: 00 Yes [id number] 1 tablet DAILY 1 tablet DAILY (route: oral) Med Classific ation: Electroly te Balance-N utritiona l Products nifedipine ER 60 mg tablet,exte nded release 09-25 00:00: 00 Yes [id number] 60 mg EVERY PM 60 mg EVERY PM (route: oral) Med Classific ation: Cardiovas cular Therapy Agents pioglitazon e 15 mg tablet 09-25 00:00: 00 Yes [id number] 15 mg DAILY 15 mg DAILY (route: oral) Med Classific ation: Endocrine Tresiba FlexTouch U-100 insulin 100 unit/mL (3 mL) subcutaneou s pen 09-25 00:00: 00 Yes [id number] 10 In unit DAILY 10 In unit DAILY (route: subcutaneo ) Med Classific ation: Endocrine aspirin 81 mg tablet 09-22 00:00: 00 Yes [id number] 1 tablet DAILY 1 tablet DAILY (route: oral) Med Classific ation: Hematolog ical Agents docusate sodium 100 mg capsule 09-22 00:00: 00 Yes [id number] 1 capsule 2 TIMES DAILY 1 capsule 2 TIMES DAILY (route: oral) Med Classific ation: Gastroint estinal Therapy Agents ferrous sulfate 325 mg (65 mg iron) tablet 09-22 00:00: 00 Yes [id number] 1 tablet 2 TIMES DAILY 1 tablet 2 TIMES DAILY (route: oral) Med Classific ation: Electroly te Balance-N utritiona l Products isosorbide mononitrate ER 30 mg tablet,exte nded release 24 hr 09-22 00:00: 00 Yes [id number] 1 tablet DAILY 1 tablet DAILY (route: [...] AWARENESS FOR SAFETY AND WILL NOTIFY CLINICAL THREAD TWISTER AND PHYSICIAN/PROVIDER WITH ANY CHANGE IN CONDITION. [code = SKILLED NURSE WILL MAINTAIN SITUATIONAL AWARENESS FOR SAFETY AND WILL NOTIFY CLINICAL THREAD TWISTER AND PHYSICIAN/PROVIDER WITH ANY CHANGE IN CONDITION.] [...] 2025-01-17 00:00:00 Outpatient RECERTIFIC ATION ERIC EDDY [facility] [id number] 48.39
--- OUTSIDE RECORDS SUMMARY | 2025-01-16 19:00 | XMS_ITS | Clinical Summary ---
Author Organization Unknown Care Team Providers Care Director Non Profit Name Role Phone ADILIA FELIPE, VIOLETA Unavailable Unavailable SURJIT DAVID, ERIC Unavailable Unavailable Payers Payer Name Policy Type Policy Number Effective Date Expira tion Date MEDICAID [facility] [id number] Problems Condition Name Condition Details Condition Category Status Onset Date Resolution Date Last Treatment Date Treating Clinician Comments ESSENTIAL (PRIMARY) HYPERTENSION Active 09-21 00:00: 00 ATHSCL HEART DISEASE OF [place] CORONARY ARTERY W/O ANG PCTRS Active 09-21 [...] CIGARETTES, UNCOMPLICATE D Active 09-21 00:00: 00 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 09-21 00:00: 00 CORRECTION (CURRENT) USE OF ANTITHROMBOT ICS/ANTIPLAT ELETS Active [...] release 24 hr 805 00:00: 00 Yes [id number] 60 mg AT BEDTIME 60 mg AT BEDTIME (route: oral) Med Classific ation: Cardiovas cular Therapy Agents oxycodone 5 mg tablet 09-04 00:00: 00 11-19 23:59 :00 No [id number] Unavailable 5 mg FIVE TIMES DAILY NEEDED 5 mg FIVE TIMES DAILY NEEDED (route: oral) Med Classific ation: Analgesic , Anti-infl ammatory or Antipyret ic gabapentin 600 mg tablet 09-03 00:00: 00 09-25 23:59 :00 No [id number] 600 mg 2 TIMES DAILY 600 mg 2 TIMES DAILY (route: oral) Med Classific ation: Central Nervous System Agents nicotine 21 mg/24 hr daily transdermal patch 08-30 00:00: 00 Yes [id number] Unavailable 21 mg DAILY 21 mg DAILY (route: transderma l) Med Classific ation: Chemical Dependenc y, Agents to Treat Alcohol Prep Pads 08-29 00:00: 00 05-18 23:59 :00 No [id number] 1 pads, medicat ed DIRECTED THREE TIMES DAILY AND NEEDED 1 pads, medicated DIRECTED THREE TIMES DAILY AND NEEDED (route: topical) Med Classific ation: Antisepti cs and Disinfect ants amitriptyli ne 50 mg tablet 08-29 00:00: 00 09-22 23:59 :00 No [id number] Unavailable 50 mg AT BEDTIME 50 mg AT BEDTIME (route: oral) Med Classific ation: Central Nervous System Agents Asmanex HFA 100 mcg/actuati on aerosol inhaler 08-29 00:00: 00 Yes [id number] 2 puff TWICE DAILY 2 puff TWICE DAILY (route: inhalation ) Med Classific ation: Respirato ry Therapy Agents atorvastati n 80 mg tablet 08-29 00:00: 00 Yes [id number] Unavailable 80 mg BEDTIME 80 mg BEDTIME (route: oral) Med Classific ation: Cardiovas cular Therapy Agents carvedilol 25 mg tablet 08-29 00:00: 00 Yes [id number] Unavailable 25 mg TWICE DAILY 25 mg TWICE DAILY (route: oral) Med Classific ation: Cardiovas cular Therapy Agents clopidogrel 75 mg tablet 08-29 00:00: 00 Yes [id number] 75 mg EVERY AM 75 mg EVERY AM (route: oral) Med Classific ation: Hematolog ical Agents docusate sodium 100 mg capsule 08-29 00:00: 00 09-25 23:59 :00 No [id number] Unavailable 100 mg TWICE DAILY 100 mg TWICE DAILY (route: oral) Med Classific ation: Gastroint estinal Therapy Agents escitalopra m 20 mg tablet 08-29 00:00: 00 Yes [id number] Unavailable 20 mg EVERY PM 20 mg EVERY PM (route: oral) Med Classific ation: Central Nervous System Agents FeroSul 325 mg (65 mg iron) tablet 08-29 00:00: 00 09-25 23:59 :00 No [id number] Unavailable 325 mg TWICE DAILY IN THE MORNING AND AT BEDTIME 325 mg TWICE DAILY IN THE MORNING AND AT BEDTIME (route: oral) Med Classific ation: Electroly te Balance-N utritiona l Products gabapentin 800 mg tablet 08-29 00:00: 00 09-22 23:59 :00 No [id number] 800 mg 2 TIMES DAILY 800 mg 2 TIMES DAILY (route: oral) Med Classific ation: Central Nervous System Agents hydralazine 25 mg tablet 08-29 00:00: 00 09-22 23:59 :00 No [id number] Unavailable 25 mg 3 TIMES DAILY 25 mg 3 TIMES DAILY (route: oral) Med Classific ation: Cardiovas cular Therapy Agents hydralazine 50 mg tablet 08-29 00:00: 00 09-25 23:59 :00 No [id number] Unavailable 50 mg THREE TIMES DAILY IN THE MORNING AT 50 mg THREE TIMES DAILY IN THE MORNING AT (route: oral) Med Classific ation: Cardiovas cular Therapy Agents mirtazapine 45 mg tablet 08-29 00:00: 00 Yes [id number] Unavailable 45 mg AT BEDTIME 45 mg AT BEDTIME (route: oral) Med Classific ation: Central Nervous System Agents omeprazole 20 mg capsule,del ayed release 08-29 00:00: 00 Yes [id number] 20 mg TWICE DAILY 20 mg TWICE DAILY (route: oral) Med Classific ation: Gastroint estinal Therapy Agents lisinopril 40 mg tablet 09-25 00:00: 00 Yes [id number] 40 mg DAILY 40 mg DAILY (route: oral) Med Classific ation: Cardiovas cular Therapy Agents metformin 1,000 mg tablet 09-25 00:00: 00 09-22 23:59 :00 No [id number] 1000 mg 2 TIMES DAILY 1000 mg 2 TIMES DAILY (route: oral) Med Classific ation: Endocrine multivitami n tablet 09-25 00:00: 00 Yes [id number] 1 tablet DAILY 1 tablet DAILY (route: oral) Med Classific ation: Electroly te Balance-N utritiona l Products nifedipine ER 60 mg tablet,exte nded release 09-25 00:00: 00 Yes [id number] 60 mg EVERY PM 60 mg EVERY PM (route: oral) Med Classific ation: Cardiovas cular Therapy Agents pioglitazon e 15 mg tablet 09-25 00:00: 00 Yes [id number] 15 mg DAILY 15 mg DAILY (route: oral) Med Classific ation: Endocrine Tresiba FlexTouch U-100 insulin 100 unit/mL (3 mL) subcutaneou s pen 09-25 00:00: 00 Yes [id number] 10 In unit DAILY 10 In unit DAILY (route: subcutaneo ) Med Classific ation: Endocrine aspirin 81 mg tablet 09-22 00:00: 00 Yes [id number] 1 tablet DAILY 1 tablet DAILY (route: oral) Med Classific ation: Hematolog ical Agents docusate sodium 100 mg capsule 09-22 00:00: 00 Yes [id number] 1 capsule 2 TIMES DAILY 1 capsule 2 TIMES DAILY (route: oral) Med Classific ation: Gastroint estinal Therapy Agents ferrous sulfate 325 mg (65 mg iron) tablet 09-22 00:00: 00 Yes [id number] 1 tablet 2 TIMES DAILY 1 tablet 2 TIMES DAILY (route: oral) Med Classific ation: Electroly te Balance-N utritiona l Products isosorbide mononitrate ER 30 mg tablet,exte nded release 24 hr 09-22 00:00: 00 Yes [id number] 1 tablet DAILY 1 tablet DAILY (route: [...] PRE-POUR MEDICATION PER MEDICATION LIST TILL NEXT RETIREMENT VISIT [code = SKILLED NURSE TO PRE-POUR MEDICATION PER MEDICATION LIST TILL NEXT RETIREMENT VISIT] Future Scheduled Test PATIENT MA Y [...] MEDICATIONS DAILY AND PRE-POUR MEDICATIONS TILL NEXT RETIREMENT VISIT PER MEDICATION LIST. [code = SKILLED NURSE TO ADMINISTER MEDICATIONS DAILY AND PRE-POUR MEDICATIONS TILL NEXT RETIREMENT VISIT PER MEDICATION LIST.] Future Scheduled Test [...] AWARENESS FOR SAFETY AND WILL NOTIFY CLINICAL TELEPHONE OPERATORS SUPERVISOR AND PHYSICIAN/PROVIDER WITH ANY CHANGE IN CONDITION. [code = SKILLED NURSE WILL MAINTAIN SITUATIONAL AWARENESS FOR SAFETY AND WILL NOTIFY CLINICAL TELEPHONE OPERATORS SUPERVISOR AND PHYSICIAN/PROVIDER WITH ANY CHANGE IN CONDITION.] [...] CARE WILL BE ESTABLISHED THAT MEETS PATIENT'S RETIREMENT NEEDS AND INCLUDES PATIENT GOAL FOR HOME [...] Date/Time Encounter Type Admission Type Attending [facility] Care Department Encounter ID Discharge Date Discharge Status Discharge Condition Discharge Reason Percent Goals Met 2024-11-19 00:00:00 2025-01-17 00:00:00 Outpatient RECERTIFIC ATION ERIC EDDY [facility] [id number] 48.39
--- OUTSIDE RECORDS SUMMARY | 2025-01-16 19:00 | XMS_ITS | Clinical Summary ---
Author Organization Unknown Care Team Providers Care Ice Guard [employer]ating [employer]ink Name Role Phone ADILIA FELIPE, VIOLETA Unavailable Unavailable SURJIT DAVID, ERIC Unavailable Unavailable Payers Payer Name Policy Type Policy Number Effective Date Expira tion Date MEDICAID [facility] [id number] Problems Condition Name Condition Details Condition Category Status Onset Date Resolution Date Last Treatment Date Treating Clinician Comments ESSENTIAL (PRIMARY) HYPERTENSION Active 09-21 00:00: 00 ATHSCL HEART DISEASE OF [place] CORONARY ARTERY W/O ANG PCTRS Active 09-21 [...] CIGARETTES, UNCOMPLICATE D Active 09-21 00:00: 00 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 09-21 [...] release 24 hr 805 00:00: 00 Yes [id number] 60 mg AT BEDTIME 60 mg AT BEDTIME (route: oral) Med Classific ation: Cardiovas cular Therapy Agents oxycodone 5 mg tablet 09-04 00:00: 00 11-19 23:59 :00 No [id number] Unavailable 5 mg FIVE TIMES DAILY NEEDED 5 mg FIVE TIMES DAILY NEEDED (route: oral) Med Classific ation: Analgesic , Anti-infl ammatory or Antipyret ic gabapentin 600 mg tablet 09-03 00:00: 00 09-25 23:59 :00 No [id number] 600 mg 2 TIMES DAILY 600 mg 2 TIMES DAILY (route: oral) Med Classific ation: Central Nervous System Agents nicotine 21 mg/24 hr daily transdermal patch 08-30 00:00: 00 Yes [id number] Unavailable 21 mg DAILY 21 mg DAILY (route: transderma l) Med Classific ation: Chemical Dependenc y, Agents to Treat Alcohol Prep Pads 08-29 00:00: 00 05-18 23:59 :00 No [id number] 1 pads, medicat ed DIRECTED THREE TIMES DAILY AND NEEDED 1 pads, medicated DIRECTED THREE TIMES DAILY AND NEEDED (route: topical) Med Classific ation: Antisepti cs and Disinfect ants amitriptyli ne 50 mg tablet 08-29 00:00: 00 09-22 23:59 :00 No [id number] Unavailable 50 mg AT BEDTIME 50 mg AT BEDTIME (route: oral) Med Classific ation: Central Nervous System Agents Asmanex HFA 100 mcg/actuati on aerosol inhaler 08-29 00:00: 00 Yes [id number] 2 puff TWICE DAILY 2 puff TWICE DAILY (route: inhalation ) Med Classific ation: Respirato ry Therapy Agents atorvastati n 80 mg tablet 08-29 00:00: 00 Yes [id number] Unavailable 80 mg BEDTIME 80 mg BEDTIME (route: oral) Med Classific ation: Cardiovas cular Therapy Agents carvedilol 25 mg tablet 08-29 00:00: 00 Yes [id number] Unavailable 25 mg TWICE DAILY 25 mg TWICE DAILY (route: oral) Med Classific ation: Cardiovas cular Therapy Agents clopidogrel 75 mg tablet 08-29 00:00: 00 Yes [id number] 75 mg EVERY AM 75 mg EVERY AM (route: oral) Med Classific ation: Hematolog ical Agents docusate sodium 100 mg capsule 08-29 00:00: 00 09-25 23:59 :00 No [id number] Unavailable 100 mg TWICE DAILY 100 mg TWICE DAILY (route: oral) Med Classific ation: Gastroint estinal Therapy Agents escitalopra m 20 mg tablet 08-29 00:00: 00 Yes [id number] Unavailable 20 mg EVERY PM 20 mg EVERY PM (route: oral) Med Classific ation: Central Nervous System Agents FeroSul 325 mg (65 mg iron) tablet 08-29 00:00: 00 09-25 23:59 :00 No [id number] Unavailable 325 mg TWICE DAILY IN THE MORNING AND AT BEDTIME 325 mg TWICE DAILY IN THE MORNING AND AT BEDTIME (route: oral) Med Classific ation: Electroly te Balance-N utritiona l Products gabapentin 800 mg tablet 08-29 00:00: 00 09-22 23:59 :00 No [id number] 800 mg 2 TIMES DAILY 800 mg 2 TIMES DAILY (route: oral) Med Classific ation: Central Nervous System Agents hydralazine 25 mg tablet 08-29 00:00: 00 09-22 23:59 :00 No [id number] Unavailable 25 mg 3 TIMES DAILY 25 mg 3 TIMES DAILY (route: oral) Med Classific ation: Cardiovas cular Therapy Agents hydralazine 50 mg tablet 08-29 00:00: 00 09-25 23:59 :00 No [id number] Unavailable 50 mg THREE TIMES DAILY IN THE MORNING AT 50 mg THREE TIMES DAILY IN THE MORNING AT (route: oral) Med Classific ation: Cardiovas cular Therapy Agents mirtazapine 45 mg tablet 08-29 00:00: 00 Yes [id number] Unavailable 45 mg AT BEDTIME 45 mg AT BEDTIME (route: oral) Med Classific ation: Central Nervous System Agents omeprazole 20 mg capsule,del ayed release 08-29 00:00: 00 Yes [id number] 20 mg TWICE DAILY 20 mg TWICE DAILY (route: oral) Med Classific ation: Gastroint estinal Therapy Agents lisinopril 40 mg tablet 09-25 00:00: 00 Yes [id number] 40 mg DAILY 40 mg DAILY (route: oral) Med Classific ation: Cardiovas cular Therapy Agents metformin 1,000 mg tablet 09-25 00:00: 00 09-22 23:59 :00 No [id number] 1000 mg 2 TIMES DAILY 1000 mg 2 TIMES DAILY (route: oral) Med Classific ation: Endocrine multivitami n tablet 09-25 00:00: 00 Yes [id number] 1 tablet DAILY 1 tablet DAILY (route: oral) Med Classific ation: Electroly te Balance-N utritiona l Products nifedipine ER 60 mg tablet,exte nded release 09-25 00:00: 00 Yes [id number] 60 mg EVERY PM 60 mg EVERY PM (route: oral) Med Classific ation: Cardiovas cular Therapy Agents pioglitazon e 15 mg tablet 09-25 00:00: 00 Yes [id number] 15 mg DAILY 15 mg DAILY (route: oral) Med Classific ation: Endocrine Tresiba FlexTouch U-100 insulin 100 unit/mL (3 mL) subcutaneou s pen 09-25 00:00: 00 Yes [id number] 10 In unit DAILY 10 In unit DAILY (route: subcutaneo ) Med Classific ation: Endocrine aspirin 81 mg tablet 09-22 00:00: 00 Yes [id number] 1 tablet DAILY 1 tablet DAILY (route: oral) Med Classific ation: Hematolog ical Agents docusate sodium 100 mg capsule 09-22 00:00: 00 Yes [id number] 1 capsule 2 TIMES DAILY 1 capsule 2 TIMES DAILY (route: oral) Med Classific ation: Gastroint estinal Therapy Agents ferrous sulfate 325 mg (65 mg iron) tablet 09-22 00:00: 00 Yes [id number] 1 tablet 2 TIMES DAILY 1 tablet 2 TIMES DAILY (route: oral) Med Classific ation: Electroly te Balance-N utritiona l Products isosorbide mononitrate ER 30 mg tablet,exte nded release 24 hr 09-22 00:00: 00 Yes [id number] 1 tablet DAILY 1 tablet DAILY (route: [...] AWARENESS FOR SAFETY AND WILL NOTIFY CLINICAL APPLIER AND PHYSICIAN/PROVIDER WITH ANY CHANGE IN CONDITION. [code = SKILLED NURSE WILL MAINTAIN SITUATIONAL AWARENESS FOR SAFETY AND WILL NOTIFY CLINICAL APPLIER AND PHYSICIAN/PROVIDER WITH ANY CHANGE IN CONDITION.] [...] Date/Time Encounter Type Admission Type Attending [facility] Care Department Encounter ID Discharge Date Discharge Status Discharge Condition Discharge Reason Percent Goals Met 2024-11-19 00:00:00 2025-01-17 00:00:00 Outpatient RECERTIFIC ATION ERIC EDDY [facility] [id number] 48.39
--- OUTSIDE RECORDS SUMMARY | 2025-01-16 19:00 | XMS_ITS | Clinical Summary ---
Author Organization Unknown Care Team Providers Care Technical Sales Advisor Name Role Phone ADILIA FELIPE, VIOLETA Unavailable Unavailable SURJIT DAVID, ERIC Unavailable Unavailable Payers Payer Name Policy Type Policy Number Effective Date Expira tion Date MEDICAID [facility] [id number] Problems Condition Name Condition Details Condition Category Status Onset Date Resolution Date Last Treatment Date Treating Clinician Comments ESSENTIAL (PRIMARY) HYPERTENSION Active 09-21 00:00: 00 ATHSCL HEART DISEASE OF [place] CORONARY ARTERY W/O ANG PCTRS Active 09-21 [...] CIGARETTES, UNCOMPLICATE D Active 09-21 00:00: 00 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 09-21 00:00: [...] release 24 hr 805 00:00: 00 Yes [id number] 60 mg AT BEDTIME 60 mg AT BEDTIME (route: oral) Med Classific ation: Cardiovas cular Therapy Agents oxycodone 5 mg tablet 09-04 00:00: 00 11-19 23:59 :00 No [id number] Unavailable 5 mg FIVE TIMES DAILY NEEDED 5 mg FIVE TIMES DAILY NEEDED (route: oral) Med Classific ation: Analgesic , Anti-infl ammatory or Antipyret ic gabapentin 600 mg tablet 09-03 00:00: 00 09-25 23:59 :00 No [id number] 600 mg 2 TIMES DAILY 600 mg 2 TIMES DAILY (route: oral) Med Classific ation: Central Nervous System Agents nicotine 21 mg/24 hr daily transdermal patch 08-30 00:00: 00 Yes [id number] Unavailable 21 mg DAILY 21 mg DAILY (route: transderma l) Med Classific ation: Chemical Dependenc y, Agents to Treat Alcohol Prep Pads 08-29 00:00: 00 05-18 23:59 :00 No [id number] 1 pads, medicat ed DIRECTED THREE TIMES DAILY AND NEEDED 1 pads, medicated DIRECTED THREE TIMES DAILY AND NEEDED (route: topical) Med Classific ation: Antisepti cs and Disinfect ants amitriptyli ne 50 mg tablet 08-29 00:00: 00 09-22 23:59 :00 No [id number] Unavailable 50 mg AT BEDTIME 50 mg AT BEDTIME (route: oral) Med Classific ation: Central Nervous System Agents Asmanex HFA 100 mcg/actuati on aerosol inhaler 08-29 00:00: 00 Yes [id number] 2 puff TWICE DAILY 2 puff TWICE DAILY (route: inhalation ) Med Classific ation: Respirato ry Therapy Agents atorvastati n 80 mg tablet 08-29 00:00: 00 Yes [id number] Unavailable 80 mg BEDTIME 80 mg BEDTIME (route: oral) Med Classific ation: Cardiovas cular Therapy Agents carvedilol 25 mg tablet 08-29 00:00: 00 Yes [id number] Unavailable 25 mg TWICE DAILY 25 mg TWICE DAILY (route: oral) Med Classific ation: Cardiovas cular Therapy Agents clopidogrel 75 mg tablet 08-29 00:00: 00 Yes [id number] 75 mg EVERY AM 75 mg EVERY AM (route: oral) Med Classific ation: Hematolog ical Agents docusate sodium 100 mg capsule 08-29 00:00: 00 09-25 23:59 :00 No [id number] Unavailable 100 mg TWICE DAILY 100 mg TWICE DAILY (route: oral) Med Classific ation: Gastroint estinal Therapy Agents escitalopra m 20 mg tablet 08-29 00:00: 00 Yes [id number] Unavailable 20 mg EVERY PM 20 mg EVERY PM (route: oral) Med Classific ation: Central Nervous System Agents FeroSul 325 mg (65 mg iron) tablet 08-29 00:00: 00 09-25 23:59 :00 No [id number] Unavailable 325 mg TWICE DAILY IN THE MORNING AND AT BEDTIME 325 mg TWICE DAILY IN THE MORNING AND AT BEDTIME (route: oral) Med Classific ation: Electroly te Balance-N utritiona l Products gabapentin 800 mg tablet 08-29 00:00: 00 09-22 23:59 :00 No [id number] 800 mg 2 TIMES DAILY 800 mg 2 TIMES DAILY (route: oral) Med Classific ation: Central Nervous System Agents hydralazine 25 mg tablet 08-29 00:00: 00 09-22 23:59 :00 No [id number] Unavailable 25 mg 3 TIMES DAILY 25 mg 3 TIMES DAILY (route: oral) Med Classific ation: Cardiovas cular Therapy Agents hydralazine 50 mg tablet 08-29 00:00: 00 09-25 23:59 :00 No [id number] Unavailable 50 mg THREE TIMES DAILY IN THE MORNING AT 50 mg THREE TIMES DAILY IN THE MORNING AT (route: oral) Med Classific ation: Cardiovas cular Therapy Agents mirtazapine 45 mg tablet 08-29 00:00: 00 Yes [id number] Unavailable 45 mg AT BEDTIME 45 mg AT BEDTIME (route: oral) Med Classific ation: Central Nervous System Agents omeprazole 20 mg capsule,del ayed release 08-29 00:00: 00 Yes [id number] 20 mg TWICE DAILY 20 mg TWICE DAILY (route: oral) Med Classific ation: Gastroint estinal Therapy Agents lisinopril 40 mg tablet 09-25 00:00: 00 Yes [id number] 40 mg DAILY 40 mg DAILY (route: oral) Med Classific ation: Cardiovas cular Therapy Agents metformin 1,000 mg tablet 09-25 00:00: 00 09-22 23:59 :00 No [id number] 1000 mg 2 TIMES DAILY 1000 mg 2 TIMES DAILY (route: oral) Med Classific ation: Endocrine multivitami n tablet 09-25 00:00: 00 Yes [id number] 1 tablet DAILY 1 tablet DAILY (route: oral) Med Classific ation: Electroly te Balance-N utritiona l Products nifedipine ER 60 mg tablet,exte nded release 09-25 00:00: 00 Yes [id number] 60 mg EVERY PM 60 mg EVERY PM (route: oral) Med Classific ation: Cardiovas cular Therapy Agents pioglitazon e 15 mg tablet 09-25 00:00: 00 Yes [id number] 15 mg DAILY 15 mg DAILY (route: oral) Med Classific ation: Endocrine Tresiba FlexTouch U-100 insulin 100 unit/mL (3 mL) subcutaneou s pen 09-25 00:00: 00 Yes [id number] In unit DAILY 10 In unit DAILY (route: subcutaneo ) Med Classific ation: Endocrine aspirin 81 mg tablet 09-22 00:00: 00 Yes [id number] 1 tablet DAILY 1 tablet DAILY (route: oral) Med Classific ation: Hematolog ical Agents docusate sodium 100 mg capsule 09-22 00:00: 00 Yes [id number] 1 capsule 2 TIMES DAILY 1 capsule 2 TIMES DAILY (route: oral) Med Classific ation: Gastroint estinal Therapy Agents ferrous sulfate 325 mg (65 mg iron) tablet 09-22 00:00: 00 Yes [id number] 1 tablet 2 TIMES DAILY 1 tablet 2 TIMES DAILY (route: oral) Med Classific ation: Electroly te Balance-N utritiona l Products isosorbide mononitrate ER 30 mg tablet,exte nded release 24 hr 09-22 00:00: 00 Yes [id number] 1 tablet DAILY 1 tablet DAILY (route: [...] AWARENESS FOR SAFETY AND WILL NOTIFY CLINICAL MARINE INSURANCE CLAIM EXAMINER AND PHYSICIAN/PROVIDER WITH ANY CHANGE IN CONDITION. [code = SKILLED NURSE WILL MAINTAIN SITUATIONAL AWARENESS FOR SAFETY AND WILL NOTIFY CLINICAL MARINE INSURANCE CLAIM EXAMINER AND PHYSICIAN/PROVIDER WITH ANY CHANGE IN CONDITION.] [...] Outpatient RECERTIFIC ATION ERIC EDDY [facility] [id number] 48.39
--- OUTSIDE RECORDS SUMMARY | 2025-01-16 19:00 | XMS_ITS | Clinical Summary ---
Author Organization Unknown Care Team Providers Care Engineering Systems Analyst Name Role Phone ADILIA FELIPE, VIOLETA Unavailable Unavailable SURJIT DAVID, ERIC Unavailable Unavailable Payers Payer Name Policy Type Policy Number Effective Date Expira tion Date MEDICAID [facility] [id number] Problems Condition Name Condition Details Condition Category Status Onset Date Resolution Date Last Treatment Date Treating Clinician Comments ESSENTIAL (PRIMARY) HYPERTENSION Active 09-21 00:00: 00 ATHSCL HEART DISEASE OF [place] CORONARY ARTERY W/O ANG PCTRS Active 09-21 [...] CIGARETTES, UNCOMPLICATE D Active 09-21 00:00: 00 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 09-21 00:00: [...] release 24 hr 805 00:00: 00 Yes [id number] 60 mg AT BEDTIME 60 mg AT BEDTIME (route: oral) Med Classific ation: Cardiovas cular Therapy Agents oxycodone 5 mg tablet 09-04 00:00: 00 11-19 23:59 :00 No [id number] Unavailable 5 mg FIVE TIMES DAILY NEEDED 5 mg FIVE TIMES DAILY NEEDED (route: oral) Med Classific ation: Analgesic , Anti-infl ammatory or Antipyret ic gabapentin 600 mg tablet 09-03 00:00: 00 09-25 23:59 :00 No [id number] 600 mg 2 TIMES DAILY 600 mg 2 TIMES DAILY (route: oral) Med Classific ation: Central Nervous System Agents nicotine 21 mg/24 hr daily transdermal patch 08-30 00:00: 00 Yes [id number] Unavailable 21 mg DAILY 21 mg DAILY (route: transderma l) Med Classific ation: Chemical Dependenc y, Agents to Treat Alcohol Prep Pads 08-29 00:00: 00 05-18 23:59 :00 No [id number] 1 pads, medicat ed DIRECTED THREE TIMES DAILY AND NEEDED 1 pads, medicated DIRECTED THREE TIMES DAILY AND NEEDED (route: topical) Med Classific ation: Antisepti cs and Disinfect ants amitriptyli ne 50 mg tablet 08-29 00:00: 00 09-22 23:59 :00 No [id number] Unavailable 50 mg AT BEDTIME 50 mg AT BEDTIME (route: oral) Med Classific ation: Central Nervous System Agents Asmanex HFA 100 mcg/actuati on aerosol inhaler 08-29 00:00: 00 Yes [id number] 2 puff TWICE DAILY 2 puff TWICE DAILY (route: inhalation ) Med Classific ation: Respirato ry Therapy Agents atorvastati n 80 mg tablet 08-29 00:00: 00 Yes [id number] Unavailable 80 mg BEDTIME 80 mg BEDTIME (route: oral) Med Classific ation: Cardiovas cular Therapy Agents carvedilol 25 mg tablet 08-29 00:00: 00 Yes [id number] Unavailable 25 mg TWICE DAILY 25 mg TWICE DAILY (route: oral) Med Classific ation: Cardiovas cular Therapy Agents clopidogrel 75 mg tablet 08-29 00:00: 00 Yes [id number] 75 mg EVERY AM 75 mg EVERY AM (route: oral) Med Classific ation: Hematolog ical Agents docusate sodium 100 mg capsule 08-29 00:00: 00 09-25 23:59 :00 No [id number] Unavailable 100 mg TWICE DAILY 100 mg TWICE DAILY (route: oral) Med Classific ation: Gastroint estinal Therapy Agents escitalopra m 20 mg tablet 08-29 00:00: 00 Yes [id number] Unavailable 20 mg EVERY PM 20 mg EVERY PM (route: oral) Med Classific ation: Central Nervous System Agents FeroSul 325 mg (65 mg iron) tablet 08-29 00:00: 00 09-25 23:59 :00 No [id number] Unavailable 325 mg TWICE DAILY IN THE MORNING AND AT BEDTIME 325 mg TWICE DAILY IN THE MORNING AND AT BEDTIME (route: oral) Med Classific ation: Electroly te Balance-N utritiona l Products gabapentin 800 mg tablet 08-29 00:00: 00 09-22 23:59 :00 No [id number] 800 mg 2 TIMES DAILY 800 mg 2 TIMES DAILY (route: oral) Med Classific ation: Central Nervous System Agents hydralazine 25 mg tablet 08-29 00:00: 00 09-22 23:59 :00 No [id number] Unavailable 25 mg 3 TIMES DAILY 25 mg 3 TIMES DAILY (route: oral) Med Classific ation: Cardiovas cular Therapy Agents hydralazine 50 mg tablet 08-29 00:00: 00 09-25 23:59 :00 No [id number] Unavailable 50 mg THREE TIMES DAILY IN THE MORNING AT 50 mg THREE TIMES DAILY IN THE MORNING AT (route: oral) Med Classific ation: Cardiovas cular Therapy Agents mirtazapine 45 mg tablet 08-29 00:00: 00 Yes [id number] Unavailable 45 mg AT BEDTIME 45 mg AT BEDTIME (route: oral) Med Classific ation: Central Nervous System Agents omeprazole 20 mg capsule,del ayed release 08-29 00:00: 00 Yes [id number] 20 mg TWICE DAILY 20 mg TWICE DAILY (route: oral) Med Classific ation: Gastroint estinal Therapy Agents lisinopril 40 mg tablet 09-25 00:00: 00 Yes [id number] 40 mg DAILY 40 mg DAILY (route: oral) Med Classific ation: Cardiovas cular Therapy Agents metformin 1,000 mg tablet 09-25 00:00: 00 09-22 23:59 :00 No [id number] 1000 mg 2 TIMES DAILY 1000 mg 2 TIMES DAILY (route: oral) Med Classific ation: Endocrine multivitami n tablet 09-25 00:00: 00 Yes [id number] 1 tablet DAILY 1 tablet DAILY (route: oral) Med Classific ation: Electroly te Balance-N utritiona l Products nifedipine ER 60 mg tablet,exte nded release 09-25 00:00: 00 Yes [id number] 60 mg EVERY PM 60 mg EVERY PM (route: oral) Med Classific ation: Cardiovas cular Therapy Agents pioglitazon e 15 mg tablet 09-25 00:00: 00 Yes [id number] 15 mg DAILY 15 mg DAILY (route: oral) Med Classific ation: Endocrine Tresiba FlexTouch U-100 insulin 100 unit/mL (3 mL) subcutaneou s pen 09-25 00:00: 00 Yes [id number] 10 In unit DAILY 10 In unit DAILY (route: subcutaneo ) Med Classific ation: Endocrine aspirin 81 mg tablet 09-22 00:00: 00 Yes [id number] 1 tablet DAILY 1 tablet DAILY (route: oral) Med Classific ation: Hematolog ical Agents docusate sodium 100 mg capsule 09-22 00:00: 00 Yes [id number] 1 capsule 2 TIMES DAILY 1 capsule 2 TIMES DAILY (route: oral) Med Classific ation: Gastroint estinal Therapy Agents ferrous sulfate 325 mg (65 mg iron) tablet 09-22 00:00: 00 Yes [id number] 1 tablet 2 TIMES DAILY 1 tablet 2 TIMES DAILY (route: oral) Med Classific ation: Electroly te Balance-N utritiona l Products isosorbide mononitrate ER 30 mg tablet,exte nded release 24 hr 09-22 00:00: 00 Yes [id number] 1 tablet DAILY 1 tablet DAILY (route: [...] AWARENESS FOR SAFETY AND WILL NOTIFY CLINICAL EVENTS ASSOCIATE AND PHYSICIAN/PROVIDER WITH ANY CHANGE IN CONDITION. [code = SKILLED NURSE WILL MAINTAIN SITUATIONAL AWARENESS FOR SAFETY AND WILL NOTIFY CLINICAL EVENTS ASSOCIATE AND PHYSICIAN/PROVIDER WITH ANY CHANGE IN CONDITION.] [...] End Date/Time Encounter Type Admission Type Attending [facility] Care Department Encounter ID Discharge Date Discharge Status Discharge Condition Discharge Reason Percent Goals Met 2024-11-19 00:00:00 2025-01-17 00:00:00 Outpatient RECERTIFIC ATION ERIC EDDY [facility] [id number] 48.39
--- OUTSIDE RECORDS SUMMARY | 2025-01-16 19:00 | XMS_ITS | Clinical Summary ---
Author Organization Unknown Care Team Providers Care Automobile Assembly Supervisor Name Role Phone ADILIA FELIPE, VIOLETA Unavailable Unavailable SURJIT DAVID, ERIC Unavailable Unavailable Payers Payer Name Policy Type Policy Number Effective Date Expira tion Date MEDICAID [facility] [id number] Problems Condition Name Condition Details Condition Category Status Onset Date Resolution Date Last Treatment Date Treating Clinician Comments ESSENTIAL (PRIMARY) HYPERTENSION Active 09-21 00:00: 00 ATHSCL HEART DISEASE OF [place] CORONARY ARTERY W/O ANG PCTRS Active 09-21 [...] CIGARETTES, UNCOMPLICATE D Active 09-21 00:00: 00 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 09-21 [...] release 24 hr 805 00:00: 00 Yes [id number] 60 mg AT BEDTIME 60 mg AT BEDTIME (route: oral) Med Classific ation: Cardiovas cular Therapy Agents oxycodone 5 mg tablet 09-04 00:00: 00 11-19 23:59 :00 No [id number] Unavailable 5 mg FIVE TIMES DAILY NEEDED 5 mg FIVE TIMES DAILY NEEDED (route: oral) Med Classific ation: Analgesic , Anti-infl ammatory or Antipyret ic gabapentin 600 mg tablet 09-03 00:00: 00 09-25 23:59 :00 No [id number] 600 mg 2 TIMES DAILY 600 mg 2 TIMES DAILY (route: oral) Med Classific ation: Central Nervous System Agents nicotine 21 mg/24 hr daily transdermal patch 08-30 00:00: 00 Yes [id number] Unavailable 21 mg DAILY 21 mg DAILY (route: transderma l) Med Classific ation: Chemical Dependenc y, Agents to Treat Alcohol Prep Pads 08-29 00:00: 00 05-18 23:59 :00 No [id number] 1 pads, medicat ed DIRECTED THREE TIMES DAILY AND NEEDED 1 pads, medicated DIRECTED THREE TIMES DAILY AND NEEDED (route: topical) Med Classific ation: Antisepti cs and Disinfect ants amitriptyli ne 50 mg tablet 08-29 00:00: 00 09-22 23:59 :00 No [id number] Unavailable 50 mg AT BEDTIME 50 mg AT BEDTIME (route: oral) Med Classific ation: Central Nervous System Agents Asmanex HFA 100 mcg/actuati on aerosol inhaler 08-29 00:00: 00 Yes [id number] 2 puff TWICE DAILY 2 puff TWICE DAILY (route: inhalation ) Med Classific ation: Respirato ry Therapy Agents atorvastati n 80 mg tablet 08-29 00:00: 00 Yes [id number] Unavailable 80 mg BEDTIME 80 mg BEDTIME (route: oral) Med Classific ation: Cardiovas cular Therapy Agents carvedilol 25 mg tablet 08-29 00:00: 00 Yes [id number] Unavailable 25 mg TWICE DAILY 25 mg TWICE DAILY (route: oral) Med Classific ation: Cardiovas cular Therapy Agents clopidogrel 75 mg tablet 08-29 00:00: 00 Yes [id number] 75 mg EVERY AM 75 mg EVERY AM (route: oral) Med Classific ation: Hematolog ical Agents docusate sodium 100 mg capsule 08-29 00:00: 00 09-25 23:59 :00 No [id number] Unavailable 100 mg TWICE DAILY 100 mg TWICE DAILY (route: oral) Med Classific ation: Gastroint estinal Therapy Agents escitalopra m 20 mg tablet 08-29 00:00: 00 Yes [id number] Unavailable 20 mg EVERY PM 20 mg EVERY PM (route: oral) Med Classific ation: Central Nervous System Agents FeroSul 325 mg (65 mg iron) tablet 08-29 00:00: 00 09-25 23:59 :00 No [id number] Unavailable 325 mg TWICE DAILY IN THE MORNING AND AT BEDTIME 325 mg TWICE DAILY IN THE MORNING AND AT BEDTIME (route: oral) Med Classific ation: Electroly te Balance-N utritiona l Products gabapentin 800 mg tablet 08-29 00:00: 00 09-22 23:59 :00 No [id number] 800 mg 2 TIMES DAILY 800 mg 2 TIMES DAILY (route: oral) Med Classific ation: Central Nervous System Agents hydralazine 25 mg tablet 08-29 00:00: 00 09-22 23:59 :00 No [id number] Unavailable 25 mg 3 TIMES DAILY 25 mg 3 TIMES DAILY (route: oral) Med Classific ation: Cardiovas cular Therapy Agents hydralazine 50 mg tablet 08-29 00:00: 00 09-25 23:59 :00 No [id number] Unavailable 50 mg THREE TIMES DAILY IN THE MORNING AT 50 mg THREE TIMES DAILY IN THE MORNING AT (route: oral) Med Classific ation: Cardiovas cular Therapy Agents mirtazapine 45 mg tablet 08-29 00:00: 00 Yes [id number] Unavailable 45 mg AT BEDTIME 45 mg AT BEDTIME (route: oral) Med Classific ation: Central Nervous System Agents omeprazole 20 mg capsule,del ayed release 08-29 00:00: 00 Yes [id number] 20 mg TWICE DAILY 20 mg TWICE DAILY (route: oral) Med Classific ation: Gastroint estinal Therapy Agents lisinopril 40 mg tablet 09-25 00:00: 00 Yes [id number] 40 mg DAILY 40 mg DAILY (route: oral) Med Classific ation: Cardiovas cular Therapy Agents metformin 1,000 mg tablet 09-25 00:00: 00 09-22 23:59 :00 No [id number] 1000 mg 2 TIMES DAILY 1000 mg 2 TIMES DAILY (route: oral) Med Classific ation: Endocrine multivitami n tablet 09-25 00:00: 00 Yes [id number] 1 tablet DAILY 1 tablet DAILY (route: oral) Med Classific ation: Electroly te Balance-N utritiona l Products nifedipine ER 60 mg tablet,exte nded release 09-25 00:00: 00 Yes [id number] 60 mg EVERY PM 60 mg EVERY PM (route: oral) Med Classific ation: Cardiovas cular Therapy Agents pioglitazon e 15 mg tablet 09-25 00:00: 00 Yes [id number] 15 mg DAILY 15 mg DAILY (route: oral) Med Classific ation: Endocrine Tresiba FlexTouch U-100 insulin 100 unit/mL (3 mL) subcutaneou s pen 09-25 00:00: 00 Yes [id number] 10 In unit DAILY 10 In unit DAILY (route: subcutaneo ) Med Classific ation: Endocrine aspirin 81 mg tablet 09-22 00:00: 00 Yes [id number] 1 tablet DAILY 1 tablet DAILY (route: oral) Med Classific ation: Hematolog ical Agents docusate sodium 100 mg capsule 09-22 00:00: 00 Yes [id number] 1 capsule 2 TIMES DAILY 1 capsule 2 TIMES DAILY (route: oral) Med Classific ation: Gastroint estinal Therapy Agents ferrous sulfate 325 mg (65 mg iron) tablet 09-22 00:00: 00 Yes [id number] 1 tablet 2 TIMES DAILY 1 tablet 2 TIMES DAILY (route: oral) Med Classific ation: Electroly te Balance-N utritiona l Products isosorbide mononitrate ER 30 mg tablet,exte nded release 24 hr 09-22 00:00: 00 Yes [id number] 1 tablet DAILY 1 tablet DAILY (route: [...] AWARENESS FOR SAFETY AND WILL NOTIFY CLINICAL PLUM PACKER AND PHYSICIAN/PROVIDER WITH ANY CHANGE IN CONDITION. [code = SKILLED NURSE WILL MAINTAIN SITUATIONAL AWARENESS FOR SAFETY AND WILL NOTIFY CLINICAL PLUM PACKER AND PHYSICIAN/PROVIDER WITH ANY CHANGE IN CONDITION.] [...] 00:00:00 Outpatient RECERTIFIC ATION ERIC ED[facility] [id number] 48.39
--- OUTSIDE RECORDS SUMMARY | 2025-01-16 19:00 | XMS_ITS | Clinical Summary ---
Author Organization Unknown Care Team Providers Care Probation Agent Name Role Phone ADILIA FELIPE, VIOLETA Unavailable Unavailable SURJIT DAVID, ERIC Unavailable Unavailable Payers Payer Name Policy Type Policy Number Effective Date Expira tion Date MEDICAID [facility] [id number] Problems Condition Name Condition Details Condition Category Status Onset Date Resolution Date Last Treatment Date Treating Clinician Comments ESSENTIAL (PRIMARY) HYPERTENSION Active 09-21 00:00: 00 ATHSCL HEART DISEASE OF [place] CORONARY ARTERY W/O ANG PCTRS Active 09-21 [...] CIGARETTES, UNCOMPLICATE D Active 09-21 00:00: 00 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 Active 09-21 00:00: [...] release 24 hr 805 00:00: 00 Yes [id number] 60 mg AT BEDTIME 60 mg AT BEDTIME (route: oral) Med Classific ation: Cardiovas cular Therapy Agents oxycodone 5 mg tablet 09-04 00:00: 00 11-19 23:59 :00 No [id number] Unavailable 5 mg FIVE TIMES DAILY NEEDED 5 mg FIVE TIMES DAILY NEEDED (route: oral) Med Classific ation: Analgesic , Anti-infl ammatory or Antipyret ic gabapentin 600 mg tablet 09-03 00:00: 00 09-25 23:59 :00 No [id number] 600 mg 2 TIMES DAILY 600 mg 2 TIMES DAILY (route: oral) Med Classific ation: Central Nervous System Agents nicotine 21 mg/24 hr daily transdermal patch 08-30 00:00: 00 Yes [id number] Unavailable 21 mg DAILY 21 mg DAILY (route: transderma l) Med Classific ation: Chemical Dependenc y, Agents to Treat Alcohol Prep Pads 08-29 00:00: 00 05-18 23:59 :00 No [id number] 1 pads, medicat ed DIRECTED THREE TIMES DAILY AND NEEDED 1 pads, medicated DIRECTED THREE TIMES DAILY AND NEEDED (route: topical) Med Classific ation: Antisepti cs and Disinfect ants amitriptyli ne 50 mg tablet 08-29 00:00: 00 09-22 23:59 :00 No [id number] Unavailable 50 mg AT BEDTIME 50 mg AT BEDTIME (route: oral) Med Classific ation: Central Nervous System Agents Asmanex HFA 100 mcg/actuati on aerosol inhaler 08-29 00:00: 00 Yes [id number] 2 puff TWICE DAILY 2 puff TWICE DAILY (route: inhalation ) Med Classific ation: Respirato ry Therapy Agents atorvastati n 80 mg tablet 08-29 00:00: 00 Yes [id number] Unavailable 80 mg BEDTIME 80 mg BEDTIME (route: oral) Med Classific ation: Cardiovas cular Therapy Agents carvedilol 25 mg tablet 08-29 00:00: 00 Yes [id number] Unavailable 25 mg TWICE DAILY 25 mg TWICE DAILY (route: oral) Med Classific ation: Cardiovas cular Therapy Agents clopidogrel 75 mg tablet 08-29 00:00: 00 Yes [id number] 75 mg EVERY AM 75 mg EVERY AM (route: oral) Med Classific ation: Hematolog ical Agents docusate sodium 100 mg capsule 08-29 00:00: 00 09-25 23:59 :00 No [id number] Unavailable 100 mg TWICE DAILY 100 mg TWICE DAILY (route: oral) Med Classific ation: Gastroint estinal Therapy Agents escitalopra m 20 mg tablet 08-29 00:00: 00 Yes [id number] Unavailable 20 mg EVERY PM 20 mg EVERY PM (route: oral) Med Classific ation: Central Nervous System Agents FeroSul 325 mg (65 mg iron) tablet 08-29 00:00: 00 09-25 23:59 :00 No [id number] Unavailable 325 mg TWICE DAILY IN THE MORNING AND AT BEDTIME 325 mg TWICE DAILY IN THE MORNING AND AT BEDTIME (route: oral) Med Classific ation: Electroly te Balance-N utritiona l Products gabapentin 800 mg tablet 08-29 00:00: 00 09-22 23:59 :00 No [id number] 800 mg 2 TIMES DAILY 800 mg 2 TIMES DAILY (route: oral) Med Classific ation: Central Nervous System Agents hydralazine 25 mg tablet 08-29 00:00: 00 09-22 23:59 :00 No [id number] Unavailable 25 mg 3 TIMES DAILY 25 mg 3 TIMES DAILY (route: oral) Med Classific ation: Cardiovas cular Therapy Agents hydralazine 50 mg tablet 08-29 00:00: 00 09-25 23:59 :00 No [id number] Unavailable 50 mg THREE TIMES DAILY IN THE MORNING AT 50 mg THREE TIMES DAILY IN THE MORNING AT (route: oral) Med Classific ation: Cardiovas cular Therapy Agents mirtazapine 45 mg tablet 08-29 00:00: 00 Yes [id number] Unavailable 45 mg AT BEDTIME 45 mg AT BEDTIME (route: oral) Med Classific ation: Central Nervous System Agents omeprazole 20 mg capsule,del ayed release 08-29 00:00: 00 Yes [id number] 20 mg TWICE DAILY 20 mg TWICE DAILY (route: oral) Med Classific ation: Gastroint estinal Therapy Agents lisinopril 40 mg tablet 09-25 00:00: 00 Yes [id number] 40 mg DAILY 40 mg DAILY (route: oral) Med Classific ation: Cardiovas cular Therapy Agents metformin 1,000 mg tablet 09-25 00:00: 00 09-22 23:59 :00 No [id number] 1000 mg 2 TIMES DAILY 1000 mg 2 TIMES DAILY (route: oral) Med Classific ation: Endocrine multivitami n tablet 09-25 00:00: 00 Yes [id number] 1 tablet DAILY 1 tablet DAILY (route: oral) Med Classific ation: Electroly te Balance-N utritiona l Products nifedipine ER 60 mg tablet,exte nded release 09-25 00:00: 00 Yes [id number] 60 mg EVERY PM 60 mg EVERY PM (route: oral) Med Classific ation: Cardiovas cular Therapy Agents pioglitazon e 15 mg tablet 09-25 00:00: 00 Yes [id number] 15 mg DAILY 15 mg DAILY (route: oral) Med Classific ation: Endocrine Tresiba FlexTouch U-100 insulin 100 unit/mL (3 mL) subcutaneou s pen 09-25 00:00: 00 Yes [id number] 10 In unit DAILY 10 In unit DAILY (route: subcutaneo ) Med Classific ation: Endocrine aspirin 81 mg tablet 09-22 00:00: 00 Yes [id number] 1 tablet DAILY 1 tablet DAILY (route: oral) Med Classific ation: Hematolog ical Agents docusate sodium 100 mg capsule 09-22 00:00: 00 Yes [id number] 1 capsule 2 TIMES DAILY 1 capsule 2 TIMES DAILY (route: oral) Med Classific ation: Gastroint estinal Therapy Agents ferrous sulfate 325 mg (65 mg iron) tablet 09-22 00:00: 00 Yes [id number] 1 tablet 2 TIMES DAILY 1 tablet 2 TIMES DAILY (route: oral) Med Classific ation: Electroly te Balance-N utritiona l Products isosorbide mononitrate ER 30 mg tablet,exte nded release 24 hr 09-22 00:00: 00 Yes [id number] 1 tablet DAILY 1 tablet DAILY (route: [...] AWARENESS FOR SAFETY AND WILL NOTIFY CLINICAL INBOUND TELEMARKETER AND PHYSICIAN/PROVIDER WITH ANY CHANGE IN CONDITION. [code = SKILLED NURSE WILL MAINTAIN SITUATIONAL AWARENESS FOR SAFETY AND WILL NOTIFY CLINICAL INBOUND TELEMARKETER AND PHYSICIAN/PROVIDER WITH ANY CHANGE IN CONDITION.] [...] End Date/Time Encounter Type Admission Type Attending [facility] Care Department Encounter ID Discharge Date Discharge Status Discharge Condition Discharge Reason Percent Goals Met 2024-11-19 00:00:00 2025-01-17 00:00:00 Outpatient RECERTIFIC ATION ERIC EDDY [facility] [id number] 48.39
--- OUTSIDE RECORDS SUMMARY | 2025-01-16 19:00 | XMS_ITS | Clinical Summary ---
Author Organization Unknown Care Team Providers Care Software Integrator Name Role Phone ADILIA FELIPE, VIOLETA Unavailable Unavailable SURJIT DAVID, ERIC Unavailable Unavailable Payers Payer Name Policy Type Policy Number Effective Date Expira tion Date MEDICAID [facility] [id number] Problems Condition Name Condition Details Condition Category Status Onset Date Resolution Date Last Treatment Date Treating Clinician Comments ESSENTIAL (PRIMARY) HYPERTENSION Active 09-21 00:00: 00 ATHSCL HEART DISEASE OF [place] CORONARY ARTERY W/O ANG PCTRS Active 09-21 [...] UNCOMPLICATE D Active 09-21 00:00: 00 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 09-21 00:00: 00 SHELTER (CURRENT) USE OF ANTITHROMBOT ICS/ANTIPLAT ELETS Active [...] release 24 hr 805 00:00: 00 Yes [id number] 60 mg AT BEDTIME 60 mg AT BEDTIME (route: oral) Med Classific ation: Cardiovas cular Therapy Agents oxycodone 5 mg tablet 09-04 00:00: 00 11-19 23:59 :00 No [id number] Unavailable 5 mg FIVE TIMES DAILY NEEDED 5 mg FIVE TIMES DAILY NEEDED (route: oral) Med Classific ation: Analgesic , Anti-infl ammatory or Antipyret ic gabapentin 600 mg tablet 09-03 00:00: 00 09-25 23:59 :00 No [id number] 600 mg 2 TIMES DAILY 600 mg 2 TIMES DAILY (route: oral) Med Classific ation: Central Nervous System Agents nicotine 21 mg/24 hr daily transdermal patch 08-30 00:00: 00 Yes [id number] Unavailable 21 mg DAILY 21 mg DAILY (route: transderma l) Med Classific ation: Chemical Dependenc y, Agents to Treat Alcohol Prep Pads 08-29 00:00: 00 05-18 23:59 :00 No [id number] 1 pads, medicat ed DIRECTED THREE TIMES DAILY AND NEEDED 1 pads, medicated DIRECTED THREE TIMES DAILY AND NEEDED (route: topical) Med Classific ation: Antisepti cs and Disinfect ants amitriptyli ne 50 mg tablet 08-29 00:00: 00 09-22 23:59 :00 No [id number] Unavailable 50 mg AT BEDTIME 50 mg AT BEDTIME (route: oral) Med Classific ation: Central Nervous System Agents Asmanex HFA 100 mcg/actuati on aerosol inhaler 08-29 00:00: 00 Yes [id number] 2 puff TWICE DAILY 2 puff TWICE DAILY (route: inhalation ) Med Classific ation: Respirato ry Therapy Agents atorvastati n 80 mg tablet 08-29 00:00: 00 Yes [id number] Unavailable 80 mg BEDTIME 80 mg BEDTIME (route: oral) Med Classific ation: Cardiovas cular Therapy Agents carvedilol 25 mg tablet 08-29 00:00: 00 Yes [id number] Unavailable 25 mg TWICE DAILY 25 mg TWICE DAILY (route: oral) Med Classific ation: Cardiovas cular Therapy Agents clopidogrel 75 mg tablet 08-29 00:00: 00 Yes [id number] 75 mg EVERY AM 75 mg EVERY AM (route: oral) Med Classific ation: Hematolog ical Agents docusate sodium 100 mg capsule 08-29 00:00: 00 09-25 23:59 :00 No [id number] Unavailable 100 mg TWICE DAILY 100 mg TWICE DAILY (route: oral) Med Classific ation: Gastroint estinal Therapy Agents escitalopra m 20 mg tablet 08-29 00:00: 00 Yes [id number] Unavailable 20 mg EVERY PM 20 mg EVERY PM (route: oral) Med Classific ation: Central Nervous System Agents FeroSul 325 mg (65 mg iron) tablet 08-29 00:00: 00 09-25 23:59 :00 No [id number] Unavailable 325 mg TWICE DAILY IN THE MORNING AND AT BEDTIME 325 mg TWICE DAILY IN THE MORNING AND AT BEDTIME (route: oral) Med Classific ation: Electroly te Balance-N utritiona l Products gabapentin 800 mg tablet 08-29 00:00: 00 09-22 23:59 :00 No [id number] 800 mg 2 TIMES DAILY 800 mg 2 TIMES DAILY (route: oral) Med Classific ation: Central Nervous System Agents hydralazine 25 mg tablet 08-29 00:00: 00 09-22 23:59 :00 No [id number] Unavailable 25 mg 3 TIMES DAILY 25 mg 3 TIMES DAILY (route: oral) Med Classific ation: Cardiovas cular Therapy Agents hydralazine 50 mg tablet 08-29 00:00: 00 09-25 23:59 :00 No [id number] Unavailable 50 mg THREE TIMES DAILY IN THE MORNING AT 50 mg THREE TIMES DAILY IN THE MORNING AT (route: oral) Med Classific ation: Cardiovas cular Therapy Agents mirtazapine 45 mg tablet 08-29 00:00: 00 Yes [id number] Unavailable 45 mg AT BEDTIME 45 mg AT BEDTIME (route: oral) Med Classific ation: Central Nervous System Agents omeprazole 20 mg capsule,del ayed release 08-29 00:00: 00 Yes [id number] 20 mg TWICE DAILY 20 mg TWICE DAILY (route: oral) Med Classific ation: Gastroint estinal Therapy Agents lisinopril 40 mg tablet 09-25 00:00: 00 Yes [id number] 40 mg DAILY 40 mg DAILY (route: oral) Med Classific ation: Cardiovas cular Therapy Agents metformin 1,000 mg tablet 09-25 00:00: 00 09-22 23:59 :00 No [id number] 1000 mg 2 TIMES DAILY 1000 mg 2 TIMES DAILY (route: oral) Med Classific ation: Endocrine multivitami n tablet 09-25 00:00: 00 Yes [id number] 1 tablet DAILY 1 tablet DAILY (route: oral) Med Classific ation: Electroly te Balance-N utritiona l Products nifedipine ER 60 mg tablet,exte nded release 09-25 00:00: 00 Yes [id number] 60 mg EVERY PM 60 mg EVERY PM (route: oral) Med Classific ation: Cardiovas cular Therapy Agents pioglitazon e 15 mg tablet 09-25 00:00: 00 Yes [id number] 15 mg DAILY 15 mg DAILY (route: oral) Med Classific ation: Endocrine Tresiba FlexTouch U-100 insulin 100 unit/mL (3 mL) subcutaneou s pen 09-25 00:00: 00 Yes [id number] 10 In unit DAILY 10 In unit DAILY (route: subcutaneo ) Med Classific ation: Endocrine aspirin 81 mg tablet 09-22 00:00: 00 Yes [id number] 1 tablet DAILY 1 tablet DAILY (route: oral) Med Classific ation: Hematolog ical Agents docusate sodium 100 mg capsule 09-22 00:00: 00 Yes [id number] 1 capsule 2 TIMES DAILY 1 capsule 2 TIMES DAILY (route: oral) Med Classific ation: Gastroint estinal Therapy Agents ferrous sulfate 325 mg (65 mg iron) tablet 09-22 00:00: 00 Yes [id number] 1 tablet 2 TIMES DAILY 1 tablet 2 TIMES DAILY (route: oral) Med Classific ation: Electroly te Balance-N utritiona l Products isosorbide mononitrate ER 30 mg tablet,exte nded release 24 hr 09-22 00:00: 00 Yes [id number] 1 tablet DAILY 1 tablet DAILY (route: [...] AWARENESS FOR SAFETY AND WILL NOTIFY CLINICAL SENIOR DIRECTOR OF GLOBAL COMMERCIAL TECHNOLOGY SOLUTIONS AND PHYSICIAN/PROVIDER WITH ANY CHANGE IN CONDITION. [code = SKILLED NURSE WILL MAINTAIN SITUATIONAL AWARENESS FOR SAFETY AND WILL NOTIFY CLINICAL SENIOR DIRECTOR OF GLOBAL COMMERCIAL TECHNOLOGY SOLUTIONS AND PHYSICIAN/PROVIDER WITH ANY CHANGE IN CONDITION.] [...] End Date/Time Encounter Type Admission Type Attending [facility] Care Department Encounter ID Discharge Date Discharge Status Discharge Condition Discharge Reason Percent Goals Met 2024-11-19 00:00:00 2025-01-17 00:00:00 Outpatient RECERTIFIC ATION ERIC EDDY [facility] [id number] 48.39
--- OUTSIDE RECORDS SUMMARY | 2025-01-16 19:00 | XMS_ITS | Clinical Summary ---
Author Organization Unknown Care Team Providers Care Machine Precision Engraver Name Role Phone ADILIA FELIPE, VIOLETA Unavailable Unavailable SURJIT DAVID, ERIC Unavailable Unavailable Payers Payer Name Policy Type Policy Number Effective Date Expira tion Date MEDICAID [facility] [id number] Problems Condition Name Condition Details Condition Category Status Onset Date Resolution Date Last Treatment Date Treating Clinician Comments ESSENTIAL (PRIMARY) HYPERTENSION Active 09-21 00:00: 00 ATHSCL HEART DISEASE OF [place] CORONARY ARTERY W/O ANG PCTRS Active 09-21 [...] CIGARETTES, UNCOMPLICATE D Active 09-21 00:00: 00 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 09-21 [...] release 24 hr 805 00:00: 00 Yes [id number] 60 mg AT BEDTIME 60 mg AT BEDTIME (route: oral) Med Classific ation: Cardiovas cular Therapy Agents oxycodone 5 mg tablet 09-04 00:00: 00 11-19 23:59 :00 No [id number] Unavailable 5 mg FIVE TIMES DAILY NEEDED 5 mg FIVE TIMES DAILY NEEDED (route: oral) Med Classific ation: Analgesic , Anti-infl ammatory or Antipyret ic gabapentin 600 mg tablet 09-03 00:00: 00 09-25 23:59 :00 No [id number] 600 mg 2 TIMES DAILY 600 mg 2 TIMES DAILY (route: oral) Med Classific ation: Central Nervous System Agents nicotine 21 mg/24 hr daily transdermal patch 08-30 00:00: 00 Yes [id number] Unavailable 21 mg DAILY 21 mg DAILY (route: transderma l) Med Classific ation: Chemical Dependenc y, Agents to Treat Alcohol Prep Pads 08-29 00:00: 00 05-18 23:59 :00 No [id number] 1 pads, medicat ed DIRECTED THREE TIMES DAILY AND NEEDED 1 pads, medicated DIRECTED THREE TIMES DAILY AND NEEDED (route: topical) Med Classific ation: Antisepti cs and Disinfect ants amitriptyli ne 50 mg tablet 08-29 00:00: 00 09-22 23:59 :00 No [id number] Unavailable 50 mg AT BEDTIME 50 mg AT BEDTIME (route: oral) Med Classific ation: Central Nervous System Agents Asmanex HFA 100 mcg/actuati on aerosol inhaler 08-29 00:00: 00 Yes [id number] 2 puff TWICE DAILY 2 puff TWICE DAILY (route: inhalation ) Med Classific ation: Respirato ry Therapy Agents atorvastati n 80 mg tablet 08-29 00:00: 00 Yes [id number] Unavailable 80 mg BEDTIME 80 mg BEDTIME (route: oral) Med Classific ation: Cardiovas cular Therapy Agents carvedilol 25 mg tablet 08-29 00:00: 00 Yes [id number] Unavailable 25 mg TWICE DAILY 25 mg TWICE DAILY (route: oral) Med Classific ation: Cardiovas cular Therapy Agents clopidogrel 75 mg tablet 08-29 00:00: 00 Yes [id number] 75 mg EVERY AM 75 mg EVERY AM (route: oral) Med Classific ation: Hematolog ical Agents docusate sodium 100 mg capsule 08-29 00:00: 00 09-25 23:59 :00 No [id number] Unavailable 100 mg TWICE DAILY 100 mg TWICE DAILY (route: oral) Med Classific ation: Gastroint estinal Therapy Agents escitalopra m 20 mg tablet 08-29 00:00: 00 Yes [id number] Unavailable 20 mg EVERY PM 20 mg EVERY PM (route: oral) Med Classific ation: Central Nervous System Agents FeroSul 325 mg (65 mg iron) tablet 08-29 00:00: 00 09-25 23:59 :00 No [id number] Unavailable 325 mg TWICE DAILY IN THE MORNING AND AT BEDTIME 325 mg TWICE DAILY IN THE MORNING AND AT BEDTIME (route: oral) Med Classific ation: Electroly te Balance-N utritiona l Products gabapentin 800 mg tablet 08-29 00:00: 00 09-22 23:59 :00 No [id number] 800 mg 2 TIMES DAILY 800 mg 2 TIMES DAILY (route: oral) Med Classific ation: Central Nervous System Agents hydralazine 25 mg tablet 08-29 00:00: 00 09-22 23:59 :00 No [id number] Unavailable 25 mg 3 TIMES DAILY 25 mg 3 TIMES DAILY (route: oral) Med Classific ation: Cardiovas cular Therapy Agents hydralazine 50 mg tablet 08-29 00:00: 00 09-25 23:59 :00 No [id number] Unavailable 50 mg THREE TIMES DAILY IN THE MORNING AT 50 mg THREE TIMES DAILY IN THE MORNING AT (route: oral) Med Classific ation: Cardiovas cular Therapy Agents mirtazapine 45 mg tablet 08-29 00:00: 00 Yes [id number] Unavailable 45 mg AT BEDTIME 45 mg AT BEDTIME (route: oral) Med Classific ation: Central Nervous System Agents omeprazole 20 mg capsule,del ayed release 08-29 00:00: 00 Yes [id number] 20 mg TWICE DAILY 20 mg TWICE DAILY (route: oral) Med Classific ation: Gastroint estinal Therapy Agents lisinopril 40 mg tablet 09-25 00:00: 00 Yes [id number] 40 mg DAILY 40 mg DAILY (route: oral) Med Classific ation: Cardiovas cular Therapy Agents metformin 1,000 mg tablet 09-25 00:00: 00 09-22 23:59 :00 No [id number] 1000 mg 2 TIMES DAILY 1000 mg 2 TIMES DAILY (route: oral) Med Classific ation: Endocrine multivitami n tablet 09-25 00:00: 00 Yes [id number] 1 tablet DAILY 1 tablet DAILY (route: oral) Med Classific ation: Electroly te Balance-N utritiona l Products nifedipine ER 60 mg tablet,exte nded release 09-25 00:00: 00 Yes [id number] 60 mg EVERY PM 60 mg EVERY PM (route: oral) Med Classific ation: Cardiovas cular Therapy Agents pioglitazon e 15 mg tablet 09-25 00:00: 00 Yes [id number] 15 mg DAILY 15 mg DAILY (route: oral) Med Classific ation: Endocrine Tresiba FlexTouch U-100 insulin 100 unit/mL (3 mL) subcutaneou s pen 09-25 00:00: 00 Yes [id number] 10 In unit DAILY 10 In unit DAILY (route: subcutaneo ) Med Classific ation: Endocrine aspirin 81 mg tablet 09-22 00:00: 00 Yes [id number] 1 tablet DAILY 1 tablet DAILY (route: oral) Med Classific ation: Hematolog ical Agents docusate sodium 100 mg capsule 09-22 00:00: 00 Yes [id number] 1 capsule 2 TIMES DAILY 1 capsule 2 TIMES DAILY (route: oral) Med Classific ation: Gastroint estinal Therapy Agents ferrous sulfate 325 mg (65 mg iron) tablet 09-22 00:00: 00 Yes [id number] 1 tablet 2 TIMES DAILY 1 tablet 2 TIMES DAILY (route: oral) Med Classific ation: Electroly te Balance-N utritiona l Products isosorbide mononitrate ER 30 mg tablet,exte nded release 24 hr 09-22 00:00: 00 Yes [id number] 1 tablet DAILY 1 tablet DAILY (route: [...] PRE-POUR MEDICATION PER MEDICATION LIST TILL NEXT SENIOR LIVING VISIT [code = SKILLED NURSE TO PRE-POUR MEDICATION PER MEDICATION LIST TILL NEXT SENIOR LIVING VISIT] Future Scheduled Test PATIENT MA Y [...] DAILY AND PRE-POUR MEDICATIONS TILL NEXT SENIOR LIVING VISIT PER MEDICATION LIST. [code = SKILLED NURSE TO ADMINISTER MEDICATIONS DAILY AND PRE-POUR MEDICATIONS TILL NEXT SENIOR LIVING VISIT PER MEDICATION LIST.] Future Scheduled Test [...] AWARENESS FOR SAFETY AND WILL NOTIFY CLINICAL CIVIL ENGINEERING PROFESSOR AND PHYSICIAN/PROVIDER WITH ANY CHANGE IN CONDITION. [code = SKILLED NURSE WILL MAINTAIN SITUATIONAL AWARENESS FOR SAFETY AND WILL NOTIFY CLINICAL CIVIL ENGINEERING PROFESSOR AND PHYSICIAN/PROVIDER WITH ANY CHANGE IN CONDITION.] [...] WILL BE ESTABLISHED THAT MEETS PATIENT'S SENIOR LIVING NEEDS AND INCLUDES PATIENT GOAL FOR HOME [...] Date/Time Encounter Type Admission Type Attending [facility] Care Department Encounter ID Discharge Date Discharge Status Discharge Condition Discharge Reason Percent Goals Met 2024-11-19 00:00:00 2025-01-17 00:00:00 Outpatient RECERTIFIC ATION ERIC EDDY [facility] [id number] 48.39
--- OUTSIDE RECORDS SUMMARY | 2025-01-16 19:00 | XMS_ITS | Clinical Summary ---
Author Organization Unknown Care Team Providers Care Seed Corn Manager Production Name Role Phone ADILIA FELIPE, VIOLETA Unavailable Unavailable SURJIT DAVID, ERIC Unavailable Unavailable Payers Payer Name Policy Type Policy Number Effective Date Expira tion Date MEDICAID [facility] [id number] Problems Condition Name Condition Details Condition Category Status Onset Date Resolution Date Last Treatment Date Treating Clinician Comments ESSENTIAL (PRIMARY) HYPERTENSION Active 09-21 00:00: 00 ATHSCL HEART DISEASE OF [place] CORONARY ARTERY W/O ANG PCTRS Active 09-21 [...] CIGARETTES, UNCOMPLICATE D Active 09-21 00:00: 00 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 09-21 00:00: [...] release 24 hr 805 00:00: 00 Yes [id number] 60 mg AT BEDTIME 60 mg AT BEDTIME (route: oral) Med Classific ation: Cardiovas cular Therapy Agents oxycodone 5 mg tablet 09-04 00:00: 00 11-19 23:59 :00 No [id number] Unavailable 5 mg FIVE TIMES DAILY NEEDED 5 mg FIVE TIMES DAILY NEEDED (route: oral) Med Classific ation: Analgesic , Anti-infl ammatory or Antipyret ic gabapentin 600 mg tablet 09-03 00:00: 00 09-25 23:59 :00 No [id number] 600 mg 2 TIMES DAILY 600 mg 2 TIMES DAILY (route: oral) Med Classific ation: Central Nervous System Agents nicotine 21 mg/24 hr daily transdermal patch 08-30 00:00: 00 Yes [id number] Unavailable 21 mg DAILY 21 mg DAILY (route: transderma l) Med Classific ation: Chemical Dependenc y, Agents to Treat Alcohol Prep Pads 08-29 00:00: 00 05-18 23:59 :00 No [id number] 1 pads, medicat ed DIRECTED THREE TIMES DAILY AND NEEDED 1 pads, medicated DIRECTED THREE TIMES DAILY AND NEEDED (route: topical) Med Classific ation: Antisepti cs and Disinfect ants amitriptyli ne 50 mg tablet 08-29 00:00: 00 09-22 23:59 :00 No [id number] Unavailable 50 mg AT BEDTIME 50 mg AT BEDTIME (route: oral) Med Classific ation: Central Nervous System Agents Asmanex HFA 100 mcg/actuati on aerosol inhaler 08-29 00:00: 00 Yes [id number] 2 puff TWICE DAILY 2 puff TWICE DAILY (route: inhalation ) Med Classific ation: Respirato ry Therapy Agents atorvastati n 80 mg tablet 08-29 00:00: 00 Yes [id number] Unavailable 80 mg BEDTIME 80 mg BEDTIME (route: oral) Med Classific ation: Cardiovas cular Therapy Agents carvedilol 25 mg tablet 08-29 00:00: 00 Yes [id number] Unavailable 25 mg TWICE DAILY 25 mg TWICE DAILY (route: oral) Med Classific ation: Cardiovas cular Therapy Agents clopidogrel 75 mg tablet 08-29 00:00: 00 Yes [id number] 75 mg EVERY AM 75 mg EVERY AM (route: oral) Med Classific ation: Hematolog ical Agents docusate sodium 100 mg capsule 08-29 00:00: 00 09-25 23:59 :00 No [id number] Unavailable 100 mg TWICE DAILY 100 mg TWICE DAILY (route: oral) Med Classific ation: Gastroint estinal Therapy Agents escitalopra m 20 mg tablet 08-29 00:00: 00 Yes [id number] Unavailable 20 mg EVERY PM 20 mg EVERY PM (route: oral) Med Classific ation: Central Nervous System Agents FeroSul 325 mg (65 mg iron) tablet 08-29 00:00: 00 09-25 23:59 :00 No [id number] Unavailable 325 mg TWICE DAILY IN THE MORNING AND AT BEDTIME 325 mg TWICE DAILY IN THE MORNING AND AT BEDTIME (route: oral) Med Classific ation: Electroly te Balance-N utritiona l Products gabapentin 800 mg tablet 08-29 00:00: 00 09-22 23:59 :00 No [id number] 800 mg 2 TIMES DAILY 800 mg 2 TIMES DAILY (route: oral) Med Classific ation: Central Nervous System Agents hydralazine 25 mg tablet 08-29 00:00: 00 09-22 23:59 :00 No [id number] Unavailable 25 mg 3 TIMES DAILY 25 mg 3 TIMES DAILY (route: oral) Med Classific ation: Cardiovas cular Therapy Agents hydralazine 50 mg tablet 08-29 00:00: 00 09-25 23:59 :00 No [id number] Unavailable 50 mg THREE TIMES DAILY IN THE MORNING AT 50 mg THREE TIMES DAILY IN THE MORNING AT (route: oral) Med Classific ation: Cardiovas cular Therapy Agents mirtazapine 45 mg tablet 08-29 00:00: 00 Yes [id number] Unavailable 45 mg AT BEDTIME 45 mg AT BEDTIME (route: oral) Med Classific ation: Central Nervous System Agents omeprazole 20 mg capsule,del ayed release 08-29 00:00: 00 Yes [id number] 20 mg TWICE DAILY 20 mg TWICE DAILY (route: oral) Med Classific ation: Gastroint estinal Therapy Agents lisinopril 40 mg tablet 09-25 00:00: 00 Yes [id number] 40 mg DAILY 40 mg DAILY (route: oral) Med Classific ation: Cardiovas cular Therapy Agents metformin 1,000 mg tablet 09-25 00:00: 00 09-22 23:59 :00 No [id number] 1000 mg 2 TIMES DAILY 1000 mg 2 TIMES DAILY (route: oral) Med Classific ation: Endocrine multivitami n tablet 09-25 00:00: 00 Yes [id number] 1 tablet DAILY 1 tablet DAILY (route: oral) Med Classific ation: Electroly te Balance-N utritiona l Products nifedipine ER 60 mg tablet,exte nded release 09-25 00:00: 00 Yes [id number] 60 mg EVERY PM 60 mg EVERY PM (route: oral) Med Classific ation: Cardiovas cular Therapy Agents pioglitazon e 15 mg tablet 09-25 00:00: 00 Yes [id number] 15 mg DAILY 15 mg DAILY (route: oral) Med Classific ation: Endocrine Tresiba FlexTouch U-100 insulin 100 unit/mL (3 mL) subcutaneou s pen 09-25 00:00: 00 Yes [id number] 10 In unit DAILY 10 In unit DAILY (route: subcutaneo ) Med Classific ation: Endocrine aspirin 81 mg tablet 09-22 00:00: 00 Yes [id number] 1 tablet DAILY 1 tablet DAILY (route: oral) Med Classific ation: Hematolog ical Agents docusate sodium 100 mg capsule 09-22 00:00: 00 Yes [id number] 1 capsule 2 TIMES DAILY 1 capsule 2 TIMES DAILY (route: oral) Med Classific ation: Gastroint estinal Therapy Agents ferrous sulfate 325 mg (65 mg iron) tablet 09-22 00:00: 00 Yes [id number] 1 tablet 2 TIMES DAILY 1 tablet 2 TIMES DAILY (route: oral) Med Classific ation: Electroly te Balance-N utritiona l Products isosorbide mononitrate ER 30 mg tablet,exte nded release 24 hr 09-22 00:00: 00 Yes [id number] 1 tablet DAILY 1 tablet DAILY (route: [...] AWARENESS FOR SAFETY AND WILL NOTIFY CLINICAL STORM SASH MAKER AND PHYSICIAN/PROVIDER WITH ANY CHANGE IN CONDITION. [code = SKILLED NURSE WILL MAINTAIN SITUATIONAL AWARENESS FOR SAFETY AND WILL NOTIFY CLINICAL STORM SASH MAKER AND PHYSICIAN/PROVIDER WITH ANY CHANGE IN CONDITION.] [...] Date/Time Encounter Type Admission Type Attending [facility] Care Department Encounter ID Discharge Date Discharge Status Discharge Condition Discharge Reason Percent Goals Met 2024-11-19 00:00:00 2025-01-17 00:00:00 Outpatient RECERTIFIC ATION ERIC EDDY [facility] [id number] 48.39
--- OUTSIDE RECORDS SUMMARY | 2025-01-16 19:00 | XMS_ITS | Clinical Summary ---
Author Organization Unknown Care Team Providers Care Grant Coordinator Name Role Phone ADILIA FELIPE, VIOLETA Unavailable Unavailable SURJIT DAVID, ERIC Unavailable Unavailable Payers Payer Name Policy Type Policy Number Effective Date Expira tion Date MEDICAID [facility] [id number] Problems Condition Name Condition Details Condition Category Status Onset Date Resolution Date Last Treatment Date Treating Clinician Comments ESSENTIAL (PRIMARY) HYPERTENSION Active 09-21 00:00: 00 ATHSCL HEART DISEASE OF [place] CORONARY ARTERY W/O ANG PCTRS Active 09-21 [...] Active 09-21 00:00: 00 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 09-21 [...] release 24 hr 805 00:00: 00 Yes [id number] 60 mg AT BEDTIME 60 mg AT BEDTIME (route: oral) Med Classific ation: Cardiovas cular Therapy Agents oxycodone 5 mg tablet 09-04 00:00: 00 11-19 23:59 :00 No [id number] Unavailable 5 mg FIVE TIMES DAILY NEEDED 5 mg FIVE TIMES DAILY NEEDED (route: oral) Med Classific ation: Analgesic , Anti-infl ammatory or Antipyret ic gabapentin 600 mg tablet 09-03 00:00: 00 09-25 23:59 :00 No [id number] 600 mg 2 TIMES DAILY 600 mg 2 TIMES DAILY (route: oral) Med Classific ation: Central Nervous System Agents nicotine 21 mg/24 hr daily transdermal patch 08-30 00:00: 00 Yes [id number] Unavailable 21 mg DAILY 21 mg DAILY (route: transderma l) Med Classific ation: Chemical Dependenc y, Agents to Treat Alcohol Prep Pads 08-29 00:00: 00 05-18 23:59 :00 No [id number] 1 pads, medicat ed DIRECTED THREE TIMES DAILY AND NEEDED 1 pads, medicated DIRECTED THREE TIMES DAILY AND NEEDED (route: topical) Med Classific ation: Antisepti cs and Disinfect ants amitriptyli ne 50 mg tablet 08-29 00:00: 00 09-22 23:59 :00 No [id number] Unavailable 50 mg AT BEDTIME 50 mg AT BEDTIME (route: oral) Med Classific ation: Central Nervous System Agents Asmanex HFA 100 mcg/actuati on aerosol inhaler 08-29 00:00: 00 Yes [id number] 2 puff TWICE DAILY 2 puff TWICE DAILY (route: inhalation ) Med Classific ation: Respirato ry Therapy Agents atorvastati n 80 mg tablet 08-29 00:00: 00 Yes [id number] Unavailable 80 mg BEDTIME 80 mg BEDTIME (route: oral) Med Classific ation: Cardiovas cular Therapy Agents carvedilol 25 mg tablet 08-29 00:00: 00 Yes [id number] Unavailable 25 mg TWICE DAILY 25 mg TWICE DAILY (route: oral) Med Classific ation: Cardiovas cular Therapy Agents clopidogrel 75 mg tablet 08-29 00:00: 00 Yes [id number] 75 mg EVERY AM 75 mg EVERY AM (route: oral) Med Classific ation: Hematolog ical Agents docusate sodium 100 mg capsule 08-29 00:00: 00 09-25 23:59 :00 No [id number] Unavailable 100 mg TWICE DAILY 100 mg TWICE DAILY (route: oral) Med Classific ation: Gastroint estinal Therapy Agents escitalopra m 20 mg tablet 08-29 00:00: 00 Yes [id number] Unavailable 20 mg EVERY PM 20 mg EVERY PM (route: oral) Med Classific ation: Central Nervous System Agents FeroSul 325 mg (65 mg iron) tablet 08-29 00:00: 00 09-25 23:59 :00 No [id number] Unavailable 325 mg TWICE DAILY IN THE MORNING AND AT BEDTIME 325 mg TWICE DAILY IN THE MORNING AND AT BEDTIME (route: oral) Med Classific ation: Electroly te Balance-N utritiona l Products gabapentin 800 mg tablet 08-29 00:00: 00 09-22 23:59 :00 No [id number] 800 mg 2 TIMES DAILY 800 mg 2 TIMES DAILY (route: oral) Med Classific ation: Central Nervous System Agents hydralazine 25 mg tablet 08-29 00:00: 00 09-22 23:59 :00 No [id number] Unavailable 25 mg 3 TIMES DAILY 25 mg 3 TIMES DAILY (route: oral) Med Classific ation: Cardiovas cular Therapy Agents hydralazine 50 mg tablet 08-29 00:00: 00 09-25 23:59 :00 No [id number] Unavailable 50 mg THREE TIMES DAILY IN THE MORNING AT 50 mg THREE TIMES DAILY IN THE MORNING AT (route: oral) Med Classific ation: Cardiovas cular Therapy Agents mirtazapine 45 mg tablet 08-29 00:00: 00 Yes [id number] Unavailable 45 mg AT BEDTIME 45 mg AT BEDTIME (route: oral) Med Classific ation: Central Nervous System Agents omeprazole 20 mg capsule,del ayed release 08-29 00:00: 00 Yes [id number] 20 mg TWICE DAILY 20 mg TWICE DAILY (route: oral) Med Classific ation: Gastroint estinal Therapy Agents lisinopril 40 mg tablet 09-25 00:00: 00 Yes [id number] 40 mg DAILY 40 mg DAILY (route: oral) Med Classific ation: Cardiovas cular Therapy Agents metformin 1,000 mg tablet 09-25 00:00: 00 09-22 23:59 :00 No [id number] 1000 mg 2 TIMES DAILY 1000 mg 2 TIMES DAILY (route: oral) Med Classific ation: Endocrine multivitami n tablet 09-25 00:00: 00 Yes [id number] 1 tablet DAILY 1 tablet DAILY (route: oral) Med Classific ation: Electroly te Balance-N utritiona l Products nifedipine ER 60 mg tablet,exte nded release 09-25 00:00: 00 Yes [id number] 60 mg EVERY PM 60 mg EVERY PM (route: oral) Med Classific ation: Cardiovas cular Therapy Agents pioglitazon e 15 mg tablet 09-25 00:00: 00 Yes [id number] 15 mg DAILY 15 mg DAILY (route: oral) Med Classific ation: Endocrine Tresiba FlexTouch U-100 insulin 100 unit/mL (3 mL) subcutaneou s pen 09-25 00:00: 00 Yes [id number] 10 In unit DAILY 10 In unit DAILY (route: subcutaneo ) Med Classific ation: Endocrine aspirin 81 mg tablet 09-22 00:00: 00 Yes [id number] 1 tablet DAILY 1 tablet DAILY (route: oral) Med Classific ation: Hematolog ical Agents docusate sodium 100 mg capsule 09-22 00:00: 00 Yes [id number] 1 capsule 2 TIMES DAILY 1 capsule 2 TIMES DAILY (route: oral) Med Classific ation: Gastroint estinal Therapy Agents ferrous sulfate 325 mg (65 mg iron) tablet 09-22 00:00: 00 Yes [id number] 1 tablet 2 TIMES DAILY 1 tablet 2 TIMES DAILY (route: oral) Med Classific ation: Electroly te Balance-N utritiona l Products isosorbide mononitrate ER 30 mg tablet,exte nded release 24 hr 09-22 00:00: 00 Yes [id number] 1 tablet DAILY 1 tablet DAILY (route: [...] AWARENESS FOR SAFETY AND WILL NOTIFY CLINICAL SANDBLASTING SUPERVISOR AND PHYSICIAN/PROVIDER WITH ANY CHANGE IN CONDITION. [code = SKILLED NURSE WILL MAINTAIN SITUATIONAL AWARENESS FOR SAFETY AND WILL NOTIFY CLINICAL SANDBLASTING SUPERVISOR AND PHYSICIAN/PROVIDER WITH ANY CHANGE IN [...] Outpatient RECERTIFIC ATION ERIC EDDY [facility] [id number] 48.39
--- OUTSIDE RECORDS SUMMARY | 2025-01-16 19:00 | XMS_ITS | Clinical Summary ---
Author Organization Unknown Care Team Providers Care Dye Range Operator Name Role Phone ADILIA FELIPE, VIOLETA Unavailable Unavailable SURJIT DAVID, ERIC Unavailable Unavailable Payers Payer Name Policy Type Policy Number Effective Date Expira tion Date MEDICAID [facility] [id number] Problems Condition Name Condition Details Condition Category Status Onset Date Resolution Date Last Treatment Date Treating Clinician Comments ESSENTIAL (PRIMARY) HYPERTENSION Active 09-21 00:00: 00 ATHSCL HEART DISEASE OF [place] CORONARY ARTERY W/O ANG PCTRS Active 09-21 [...] CIGARETTES, UNCOMPLICATE D Active 09-21 00:00: 00 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 09-21 00:00: [...] release 24 hr 805 00:00: 00 Yes [id number] 60 mg AT BEDTIME 60 mg AT BEDTIME (route: oral) Med Classific ation: Cardiovas cular Therapy Agents oxycodone 5 mg tablet 09-04 00:00: 00 11-19 23:59 :00 No [id number] Unavailable 5 mg FIVE TIMES DAILY NEEDED 5 mg FIVE TIMES DAILY NEEDED (route: oral) Med Classific ation: Analgesic , Anti-infl ammatory or Antipyret ic gabapentin 600 mg tablet 09-03 00:00: 00 09-25 23:59 :00 No [id number] 600 mg 2 TIMES DAILY 600 mg 2 TIMES DAILY (route: oral) Med Classific ation: Central Nervous System Agents nicotine 21 mg/24 hr daily transdermal patch 08-30 00:00: 00 Yes [id number] Unavailable 21 mg DAILY 21 mg DAILY (route: transderma l) Med Classific ation: Chemical Dependenc y, Agents to Treat Alcohol Prep Pads 08-29 00:00: 00 05-18 23:59 :00 No [id number] 1 pads, medicat ed DIRECTED THREE TIMES DAILY AND NEEDED 1 pads, medicated DIRECTED THREE TIMES DAILY AND NEEDED (route: topical) Med Classific ation: Antisepti cs and Disinfect ants amitriptyli ne 50 mg tablet 08-29 00:00: 00 09-22 23:59 :00 No [id number] Unavailable 50 mg AT BEDTIME 50 mg AT BEDTIME (route: oral) Med Classific ation: Central Nervous System Agents Asmanex HFA 100 mcg/actuati on aerosol inhaler 08-29 00:00: 00 Yes [id number] 2 puff TWICE DAILY 2 puff TWICE DAILY (route: inhalation ) Med Classific ation: Respirato ry Therapy Agents atorvastati n 80 mg tablet 08-29 00:00: 00 Yes [id number] Unavailable 80 mg BEDTIME 80 mg BEDTIME (route: oral) Med Classific ation: Cardiovas cular Therapy Agents carvedilol 25 mg tablet 08-29 00:00: 00 Yes [id number] Unavailable 25 mg TWICE DAILY 25 mg TWICE DAILY (route: oral) Med Classific ation: Cardiovas cular Therapy Agents clopidogrel 75 mg tablet 08-29 00:00: 00 Yes [id number] 75 mg EVERY AM 75 mg EVERY AM (route: oral) Med Classific ation: Hematolog ical Agents docusate sodium 100 mg capsule 08-29 00:00: 00 09-25 23:59 :00 No [id number] Unavailable 100 mg TWICE DAILY 100 mg TWICE DAILY (route: oral) Med Classific ation: Gastroint estinal Therapy Agents escitalopra m 20 mg tablet 08-29 00:00: 00 Yes [id number] Unavailable 20 mg EVERY PM 20 mg EVERY PM (route: oral) Med Classific ation: Central Nervous System Agents FeroSul 325 mg (65 mg iron) tablet 08-29 00:00: 00 09-25 23:59 :00 No [id number] Unavailable 325 mg TWICE DAILY IN THE MORNING AND AT BEDTIME 325 mg TWICE DAILY IN THE MORNING AND AT BEDTIME (route: oral) Med Classific ation: Electroly te Balance-N utritiona l Products gabapentin 800 mg tablet 08-29 00:00: 00 09-22 23:59 :00 No [id number] 800 mg 2 TIMES DAILY 800 mg 2 TIMES DAILY (route: oral) Med Classific ation: Central Nervous System Agents hydralazine 25 mg tablet 08-29 00:00: 00 09-22 23:59 :00 No [id number] Unavailable 25 mg 3 TIMES DAILY 25 mg 3 TIMES DAILY (route: oral) Med Classific ation: Cardiovas cular Therapy Agents hydralazine 50 mg tablet 08-29 00:00: 00 09-25 23:59 :00 No [id number] Unavailable 50 mg THREE TIMES DAILY IN THE MORNING AT 50 mg THREE TIMES DAILY IN THE MORNING AT (route: oral) Med Classific ation: Cardiovas cular Therapy Agents mirtazapine 45 mg tablet 08-29 00:00: 00 Yes [id number] Unavailable 45 mg AT BEDTIME 45 mg AT BEDTIME (route: oral) Med Classific ation: Central Nervous System Agents omeprazole 20 mg capsule,del ayed release 08-29 00:00: 00 Yes [id number] 20 mg TWICE DAILY 20 mg TWICE DAILY (route: oral) Med Classific ation: Gastroint estinal Therapy Agents lisinopril 40 mg tablet 09-25 00:00: 00 Yes [id number] 40 mg DAILY 40 mg DAILY (route: oral) Med Classific ation: Cardiovas cular Therapy Agents metformin 1,000 mg tablet 09-25 00:00: 00 09-22 23:59 :00 No [id number] 1000 mg 2 TIMES DAILY 1000 mg 2 TIMES DAILY (route: oral) Med Classific ation: Endocrine multivitami n tablet 09-25 00:00: 00 Yes [id number] 1 tablet DAILY 1 tablet DAILY (route: oral) Med Classific ation: Electroly te Balance-N utritiona l Products nifedipine ER 60 mg tablet,exte nded release 09-25 00:00: 00 Yes [id number] 60 mg EVERY PM 60 mg EVERY PM (route: oral) Med Classific ation: Cardiovas cular Therapy Agents pioglitazon e 15 mg tablet 09-25 00:00: 00 Yes [id number] 15 mg DAILY 15 mg DAILY (route: oral) Med Classific ation: Endocrine Tresiba FlexTouch U-100 insulin 100 unit/mL (3 mL) subcutaneou s pen 09-25 00:00: 00 Yes [id number] 10 In unit DAILY 10 In unit DAILY (route: subcutaneo ) Med Classific ation: Endocrine aspirin 81 mg tablet 09-22 00:00: 00 Yes [id number] 1 tablet DAILY 1 tablet DAILY (route: oral) Med Classific ation: Hematolog ical Agents docusate sodium 100 mg capsule 09-22 00:00: 00 Yes [id number] 1 capsule 2 TIMES DAILY 1 capsule 2 TIMES DAILY (route: oral) Med Classific ation: Gastroint estinal Therapy Agents ferrous sulfate 325 mg (65 mg iron) tablet 09-22 00:00: 00 Yes [id number] 1 tablet 2 TIMES DAILY 1 tablet 2 TIMES DAILY (route: oral) Med Classific ation: Electroly te Balance-N utritiona l Products isosorbide mononitrate ER 30 mg tablet,exte nded release 24 hr 09-22 00:00: 00 Yes [id number] 1 tablet DAILY 1 tablet DAILY (route: [...] FOR SAFETY AND WILL NOTIFY CLINICAL PATIENT TRANSPORT OFFICER AND PHYSICIAN/PROVIDER WITH ANY CHANGE IN CONDITION. [code = SKILLED NURSE WILL MAINTAIN SITUATIONAL AWARENESS FOR SAFETY AND WILL NOTIFY CLINICAL PATIENT TRANSPORT OFFICER AND PHYSICIAN/PROVIDER WITH ANY CHANGE IN [...] Outpatient RECERTIFIC ATION ERIC EDDY [facility] [id number] 48.39
--- OUTSIDE RECORDS SUMMARY | 2025-01-16 19:00 | XMS_ITS | Clinical Summary ---
Author Organization Unknown Care Team Providers Care Plant Engineer Name Role Phone ADILIA FELIPE, VIOLETA Unavailable Unavailable SURJIT DAVID, ERIC Unavailable Unavailable Payers Payer Name Policy Type Policy Number Effective Date Expira tion Date MEDICAID [facility] [id number] Problems Condition Name Condition Details Condition Category Status Onset Date Resolution Date Last Treatment Date Treating Clinician Comments ESSENTIAL (PRIMARY) HYPERTENSION Active 09-21 00:00: 00 ATHSCL HEART DISEASE OF [place] CORONARY ARTERY W/O ANG PCTRS Active 09-21 [...] CIGARETTES, UNCOMPLICATE D Active 09-21 00:00: 00 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 09-21 [...] release 24 hr 805 00:00: 00 Yes [id number] 60 mg AT BEDTIME 60 mg AT BEDTIME (route: oral) Med Classific ation: Cardiovas cular Therapy Agents oxycodone 5 mg tablet 09-04 00:00: 00 11-19 23:59 :00 No [id number] Unavailable 5 mg FIVE TIMES DAILY NEEDED 5 mg FIVE TIMES DAILY NEEDED (route: oral) Med Classific ation: Analgesic , Anti-infl ammatory or Antipyret ic gabapentin 600 mg tablet 09-03 00:00: 00 09-25 23:59 :00 No [id number] 600 mg 2 TIMES DAILY 600 mg 2 TIMES DAILY (route: oral) Med Classific ation: Central Nervous System Agents nicotine 21 mg/24 hr daily transdermal patch 08-30 00:00: 00 Yes [id number] Unavailable 21 mg DAILY 21 mg DAILY (route: transderma l) Med Classific ation: Chemical Dependenc y, Agents to Treat Alcohol Prep Pads 08-29 00:00: 00 05-18 23:59 :00 No [id number] 1 pads, medicat ed DIRECTED THREE TIMES DAILY AND NEEDED 1 pads, medicated DIRECTED THREE TIMES DAILY AND NEEDED (route: topical) Med Classific ation: Antisepti cs and Disinfect ants amitriptyli ne 50 mg tablet 08-29 00:00: 00 09-22 23:59 :00 No [id number] Unavailable 50 mg AT BEDTIME 50 mg AT BEDTIME (route: oral) Med Classific ation: Central Nervous System Agents Asmanex HFA 100 mcg/actuati on aerosol inhaler 08-29 00:00: 00 Yes [id number] 2 puff TWICE DAILY 2 puff TWICE DAILY (route: inhalation ) Med Classific ation: Respirato ry Therapy Agents atorvastati n 80 mg tablet 08-29 00:00: 00 Yes [id number] Unavailable 80 mg BEDTIME 80 mg BEDTIME (route: oral) Med Classific ation: Cardiovas cular Therapy Agents carvedilol 25 mg tablet 08-29 00:00: 00 Yes [id number] Unavailable 25 mg TWICE DAILY 25 mg TWICE DAILY (route: oral) Med Classific ation: Cardiovas cular Therapy Agents clopidogrel 75 mg tablet 08-29 00:00: 00 Yes [id number] 75 mg EVERY AM 75 mg EVERY AM (route: oral) Med Classific ation: Hematolog ical Agents docusate sodium 100 mg capsule 08-29 00:00: 00 09-25 23:59 :00 No [id number] Unavailable 100 mg TWICE DAILY 100 mg TWICE DAILY (route: oral) Med Classific ation: Gastroint estinal Therapy Agents escitalopra m 20 mg tablet 08-29 00:00: 00 Yes [id number] Unavailable 20 mg EVERY PM 20 mg EVERY PM (route: oral) Med Classific ation: Central Nervous System Agents FeroSul 325 mg (65 mg iron) tablet 08-29 00:00: 00 09-25 23:59 :00 No [id number] Unavailable 325 mg TWICE DAILY IN THE MORNING AND AT BEDTIME 325 mg TWICE DAILY IN THE MORNING AND AT BEDTIME (route: oral) Med Classific ation: Electroly te Balance-N utritiona l Products gabapentin 800 mg tablet 08-29 00:00: 00 09-22 23:59 :00 No [id number] 800 mg 2 TIMES DAILY 800 mg 2 TIMES DAILY (route: oral) Med Classific ation: Central Nervous System Agents hydralazine 25 mg tablet 08-29 00:00: 00 09-22 23:59 :00 No [id number] Unavailable 25 mg 3 TIMES DAILY 25 mg 3 TIMES DAILY (route: oral) Med Classific ation: Cardiovas cular Therapy Agents hydralazine 50 mg tablet 08-29 00:00: 00 09-25 23:59 :00 No [id number] Unavailable 50 mg THREE TIMES DAILY IN THE MORNING AT 50 mg THREE TIMES DAILY IN THE MORNING AT (route: oral) Med Classific ation: Cardiovas cular Therapy Agents mirtazapine 45 mg tablet 08-29 00:00: 00 Yes [id number] Unavailable 45 mg AT BEDTIME 45 mg AT BEDTIME (route: oral) Med Classific ation: Central Nervous System Agents omeprazole 20 mg capsule,del ayed release 08-29 00:00: 00 Yes [id number] 20 mg TWICE DAILY 20 mg TWICE DAILY (route: oral) Med Classific ation: Gastroint estinal Therapy Agents lisinopril 40 mg tablet 09-25 00:00: 00 Yes [id number] 40 mg DAILY 40 mg DAILY (route: oral) Med Classific ation: Cardiovas cular Therapy Agents metformin 1,000 mg tablet 09-25 00:00: 00 09-22 23:59 :00 No [id number] 1000 mg 2 TIMES DAILY 1000 mg 2 TIMES DAILY (route: oral) Med Classific ation: Endocrine multivitami n tablet 09-25 00:00: 00 Yes [id number] 1 tablet DAILY 1 tablet DAILY (route: oral) Med Classific ation: Electroly te Balance-N utritiona l Products nifedipine ER 60 mg tablet,exte nded release 09-25 00:00: 00 Yes [id number] 60 mg EVERY PM 60 mg EVERY PM (route: oral) Med Classific ation: Cardiovas cular Therapy Agents pioglitazon e 15 mg tablet 09-25 00:00: 00 Yes [id number] 15 mg DAILY 15 mg DAILY (route: oral) Med Classific ation: Endocrine Tresiba FlexTouch U-100 insulin 100 unit/mL (3 mL) subcutaneou s pen 09-25 00:00: 00 Yes [id number] 10 In unit DAILY 10 In unit DAILY (route: subcutaneo ) Med Classific ation: Endocrine aspirin 81 mg tablet 09-22 00:00: 00 Yes [id number] 1 tablet DAILY 1 tablet DAILY (route: oral) Med Classific ation: Hematolog ical Agents docusate sodium 100 mg capsule 09-22 00:00: 00 Yes [id number] 1 capsule 2 TIMES DAILY 1 capsule 2 TIMES DAILY (route: oral) Med Classific ation: Gastroint estinal Therapy Agents ferrous sulfate 325 mg (65 mg iron) tablet 09-22 00:00: 00 Yes [id number] 1 tablet 2 TIMES DAILY 1 tablet 2 TIMES DAILY (route: oral) Med Classific ation: Electroly te Balance-N utritiona l Products isosorbide mononitrate ER 30 mg tablet,exte nded release 24 hr 09-22 00:00: 00 Yes [id number] 1 tablet DAILY 1 tablet DAILY (route: [...] PRE-POUR MEDICATION PER MEDICATION LIST TILL NEXT [facility] VISIT [code = SKILLED NURSE TO PRE-POUR MEDICATION PER MEDICATION LIST TILL NEXT [facility] VISIT] Future Scheduled Test PATIENT MA Y [...] AWARENESS FOR SAFETY AND WILL NOTIFY CLINICAL ROLL OFF DRIVER AND PHYSICIAN/PROVIDER WITH ANY CHANGE IN CONDITION. [code = SKILLED NURSE WILL MAINTAIN SITUATIONAL AWARENESS FOR SAFETY AND WILL NOTIFY CLINICAL ROLL OFF DRIVER AND PHYSICIAN/PROVIDER WITH ANY CHANGE IN CONDITION.] [...] RECERTIFIC ATION ERIC EDDY [facility] [id number] 48.39
--- OUTSIDE RECORDS SUMMARY | 2025-01-16 19:00 | XMS_ITS | Clinical Summary ---
Author Organization Unknown Care Team Providers Care Paper Sorter And Counter Name Role Phone DAILIA FELIPE, VIOLETA Unavailable Unavailable SURJIT DAVID, ERIC Unavailable Unavailable Payers Payer Name Policy Type Policy Number Effective Date Expira tion Date MEDICAID [facility] [id number] Problems Condition Name Condition Details Condition Category Status Onset Date Resolution Date Last Treatment Date Treating Clinician Comments ESSENTIAL (PRIMARY) HYPERTENSION Active 09-21 00:00: 00 ATHSCL HEART DISEASE OF [place] CORONARY ARTERY W/O ANG PCTRS Active 09-21 [...] CIGARETTES, UNCOMPLICATE D Active 09-21 00:00: 00 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 09-21 00:00: [...] release 24 hr 805 00:00: 00 Yes [id number] 60 mg AT BEDTIME 60 mg AT BEDTIME (route: oral) Med Classific ation: Cardiovas cular Therapy Agents oxycodone 5 mg tablet 09-04 00:00: 00 11-19 23:59 :00 No [id number] Unavailable 5 mg FIVE TIMES DAILY NEEDED 5 mg FIVE TIMES DAILY NEEDED (route: oral) Med Classific ation: Analgesic , Anti-infl ammatory or Antipyret ic gabapentin 600 mg tablet 09-03 00:00: 00 09-25 23:59 :00 No [id number] 600 mg 2 TIMES DAILY 600 mg 2 TIMES DAILY (route: oral) Med Classific ation: Central Nervous System Agents nicotine 21 mg/24 hr daily transdermal patch 08-30 00:00: 00 Yes [id number] Unavailable 21 mg DAILY 21 mg DAILY (route: transderma l) Med Classific ation: Chemical Dependenc y, Agents to Treat Alcohol Prep Pads 08-29 00:00: 00 05-18 23:59 :00 No [id number] 1 pads, medicat ed DIRECTED THREE TIMES DAILY AND NEEDED 1 pads, medicated DIRECTED THREE TIMES DAILY AND NEEDED (route: topical) Med Classific ation: Antisepti cs and Disinfect ants amitriptyli ne 50 mg tablet 08-29 00:00: 00 09-22 23:59 :00 No [id number] Unavailable 50 mg AT BEDTIME 50 mg AT BEDTIME (route: oral) Med Classific ation: Central Nervous System Agents Asmanex HFA 100 mcg/actuati on aerosol inhaler 08-29 00:00: 00 Yes [id number] 2 puff TWICE DAILY 2 puff TWICE DAILY (route: inhalation ) Med Classific ation: Respirato ry Therapy Agents atorvastati n 80 mg tablet 08-29 00:00: 00 Yes [id number] Unavailable 80 mg BEDTIME 80 mg BEDTIME (route: oral) Med Classific ation: Cardiovas cular Therapy Agents carvedilol 25 mg tablet 08-29 00:00: 00 Yes [id number] Unavailable 25 mg TWICE DAILY 25 mg TWICE DAILY (route: oral) Med Classific ation: Cardiovas cular Therapy Agents clopidogrel 75 mg tablet 08-29 00:00: 00 Yes [id number] 75 mg EVERY AM 75 mg EVERY AM (route: oral) Med Classific ation: Hematolog ical Agents docusate sodium 100 mg capsule 08-29 00:00: 00 09-25 23:59 :00 No [id number] Unavailable 100 mg TWICE DAILY 100 mg TWICE DAILY (route: oral) Med Classific ation: Gastroint estinal Therapy Agents escitalopra m 20 mg tablet 08-29 00:00: 00 Yes [id number] Unavailable 20 mg EVERY PM 20 mg EVERY PM (route: oral) Med Classific ation: Central Nervous System Agents FeroSul 325 mg (65 mg iron) tablet 08-29 00:00: 00 09-25 23:59 :00 No [id number] Unavailable 325 mg TWICE DAILY IN THE MORNING AND AT BEDTIME 325 mg TWICE DAILY IN THE MORNING AND AT BEDTIME (route: oral) Med Classific ation: Electroly te Balance-N utritiona l Products gabapentin 800 mg tablet 08-29 00:00: 00 09-22 23:59 :00 No [id number] 800 mg 2 TIMES DAILY 800 mg 2 TIMES DAILY (route: oral) Med Classific ation: Central Nervous System Agents hydralazine 25 mg tablet 08-29 00:00: 00 09-22 23:59 :00 No [id number] Unavailable 25 mg 3 TIMES DAILY 25 mg 3 TIMES DAILY (route: oral) Med Classific ation: Cardiovas cular Therapy Agents hydralazine 50 mg tablet 08-29 00:00: 00 09-25 23:59 :00 No [id number] Unavailable 50 mg THREE TIMES DAILY IN THE MORNING AT 50 mg THREE TIMES DAILY IN THE MORNING AT (route: oral) Med Classific ation: Cardiovas cular Therapy Agents mirtazapine 45 mg tablet 08-29 00:00: 00 Yes [id number] Unavailable 45 mg AT BEDTIME 45 mg AT BEDTIME (route: oral) Med Classific ation: Central Nervous System Agents omeprazole 20 mg capsule,del ayed release 08-29 00:00: 00 Yes [id number] 20 mg TWICE DAILY 20 mg TWICE DAILY (route: oral) Med Classific ation: Gastroint estinal Therapy Agents lisinopril 40 mg tablet 09-25 00:00: 00 Yes [id number] 40 mg DAILY 40 mg DAILY (route: oral) Med Classific ation: Cardiovas cular Therapy Agents metformin 1,000 mg tablet 09-25 00:00: 00 09-22 23:59 :00 No [id number] 1000 mg 2 TIMES DAILY 1000 mg 2 TIMES DAILY (route: oral) Med Classific ation: Endocrine multivitami n tablet 09-25 00:00: 00 Yes [id number] 1 tablet DAILY 1 tablet DAILY (route: oral) Med Classific ation: Electroly te Balance-N utritiona l Products nifedipine ER 60 mg tablet,exte nded release 09-25 00:00: 00 Yes [id number] 60 mg EVERY PM 60 mg EVERY PM (route: oral) Med Classific ation: Cardiovas cular Therapy Agents pioglitazon e 15 mg tablet 09-25 00:00: 00 Yes [id number] 15 mg DAILY 15 mg DAILY (route: oral) Med Classific ation: Endocrine Tresiba FlexTouch U-100 insulin 100 unit/mL (3 mL) subcutaneou s pen 09-25 00:00: 00 Yes [id number] 10 In unit DAILY 10 In unit DAILY (route: subcutaneo ) Med Classific ation: Endocrine aspirin 81 mg tablet 09-22 00:00: 00 Yes [id number] 1 tablet DAILY 1 tablet DAILY (route: oral) Med Classific ation: Hematolog ical Agents docusate sodium 100 mg capsule 09-22 00:00: 00 Yes [id number] 1 capsule 2 TIMES DAILY 1 capsule 2 TIMES DAILY (route: oral) Med Classific ation: Gastroint estinal Therapy Agents ferrous sulfate 325 mg (65 mg iron) tablet 09-22 00:00: 00 Yes [id number] 1 tablet 2 TIMES DAILY 1 tablet 2 TIMES DAILY (route: oral) Med Classific ation: Electroly te Balance-N utritiona l Products isosorbide mononitrate ER 30 mg tablet,exte nded release 24 hr 09-22 00:00: 00 Yes [id number] 1 tablet DAILY 1 tablet DAILY (route: [...] PRE-POUR MEDICATION PER MEDICATION LIST TILL NEXT INTERMEDIATE VISIT [code = SKILLED NURSE TO PRE-POUR MEDICATION PER MEDICATION LIST TILL NEXT INTERMEDIATE VISIT] Future Scheduled Test PATIENT MA Y [...] AWARENESS FOR SAFETY AND WILL NOTIFY CLINICAL CATERING SOUS CHEF AND PHYSICIAN/PROVIDER WITH ANY CHANGE IN CONDITION. [code = SKILLED NURSE WILL MAINTAIN SITUATIONAL AWARENESS FOR SAFETY AND WILL NOTIFY CLINICAL CATERING SOUS CHEF AND PHYSICIAN/PROVIDER WITH ANY CHANGE IN CONDITION.] [...] RECERTIFIC ATION ERIC EDDY [facility] [id number] 48.39
--- OUTSIDE RECORDS SUMMARY | 2025-01-16 19:00 | XMS_ITS | Clinical Summary ---
Author Organization Unknown Care Team Providers Care Gastroenterology Manager Name Role Phone ADILIA FELIPE, VIOLETA Unavailable Unavailable SURJIT DAVID, ERIC Unavailable Unavailable Payers Payer Name Policy Type Policy Number Effective Date Expira tion Date MEDICAID [facility] [id number] Problems Condition Name Condition Details Condition Category Status Onset Date Resolution Date Last Treatment Date Treating Clinician Comments ESSENTIAL (PRIMARY) HYPERTENSION Active 09-21 00:00: 00 ATHSCL HEART DISEASE OF [place] CORONARY ARTERY W/O ANG PCTRS Active 09-21 [...] CIGARETTES, UNCOMPLICATE D Active 09-21 00:00: 00 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 09-21 00:00: [...] release 24 hr 805 00:00: 00 Yes [id number] 60 mg AT BEDTIME 60 mg AT BEDTIME (route: oral) Med Classific ation: Cardiovas cular Therapy Agents oxycodone 5 mg tablet 09-04 00:00: 00 11-19 23:59 :00 No [id number] Unavailable 5 mg FIVE TIMES DAILY NEEDED 5 mg FIVE TIMES DAILY NEEDED (route: oral) Med Classific ation: Analgesic , Anti-infl ammatory or Antipyret ic gabapentin 600 mg tablet 09-03 00:00: 00 09-25 23:59 :00 No [id number] 600 mg 2 TIMES DAILY 600 mg 2 TIMES DAILY (route: oral) Med Classific ation: Central Nervous System Agents nicotine 21 mg/24 hr daily transdermal patch 08-30 00:00: 00 Yes [id number] Unavailable 21 mg DAILY 21 mg DAILY (route: transderma l) Med Classific ation: Chemical Dependenc y, Agents to Treat Alcohol Prep Pads 08-29 00:00: 00 05-18 23:59 :00 No [id number] 1 pads, medicat ed DIRECTED THREE TIMES DAILY AND NEEDED 1 pads, medicated DIRECTED THREE TIMES DAILY AND NEEDED (route: topical) Med Classific ation: Antisepti cs and Disinfect ants amitriptyli ne 50 mg tablet 08-29 00:00: 00 09-22 23:59 :00 No [id number] Unavailable 50 mg AT BEDTIME 50 mg AT BEDTIME (route: oral) Med Classific ation: Central Nervous System Agents Asmanex HFA 100 mcg/actuati on aerosol inhaler 08-29 00:00: 00 Yes [id number] 2 puff TWICE DAILY 2 puff TWICE DAILY (route: inhalation ) Med Classific ation: Respirato ry Therapy Agents atorvastati n 80 mg tablet 08-29 00:00: 00 Yes [id number] Unavailable 80 mg BEDTIME 80 mg BEDTIME (route: oral) Med Classific ation: Cardiovas cular Therapy Agents carvedilol 25 mg tablet 08-29 00:00: 00 Yes [id number] Unavailable 25 mg TWICE DAILY 25 mg TWICE DAILY (route: oral) Med Classific ation: Cardiovas cular Therapy Agents clopidogrel 75 mg tablet 08-29 00:00: 00 Yes [id number] 75 mg EVERY AM 75 mg EVERY AM (route: oral) Med Classific ation: Hematolog ical Agents docusate sodium 100 mg capsule 08-29 00:00: 00 09-25 23:59 :00 No [id number] Unavailable 100 mg TWICE DAILY 100 mg TWICE DAILY (route: oral) Med Classific ation: Gastroint estinal Therapy Agents escitalopra m 20 mg tablet 08-29 00:00: 00 Yes [id number] Unavailable 20 mg EVERY PM 20 mg EVERY PM (route: oral) Med Classific ation: Central Nervous System Agents FeroSul 325 mg (65 mg iron) tablet 08-29 00:00: 00 09-25 23:59 :00 No [id number] Unavailable 325 mg TWICE DAILY IN THE MORNING AND AT BEDTIME 325 mg TWICE DAILY IN THE MORNING AND AT BEDTIME (route: oral) Med Classific ation: Electroly te Balance-N utritiona l Products gabapentin 800 mg tablet 08-29 00:00: 00 09-22 23:59 :00 No [id number] 800 mg 2 TIMES DAILY 800 mg 2 TIMES DAILY (route: oral) Med Classific ation: Central Nervous System Agents hydralazine 25 mg tablet 08-29 00:00: 00 09-22 23:59 :00 No [id number] Unavailable 25 mg 3 TIMES DAILY 25 mg 3 TIMES DAILY (route: oral) Med Classific ation: Cardiovas cular Therapy Agents hydralazine 50 mg tablet 08-29 00:00: 00 09-25 23:59 :00 No [id number] Unavailable 50 mg THREE TIMES DAILY IN THE MORNING AT 50 mg THREE TIMES DAILY IN THE MORNING AT (route: oral) Med Classific ation: Cardiovas cular Therapy Agents mirtazapine 45 mg tablet 08-29 00:00: 00 Yes [id number] Unavailable 45 mg AT BEDTIME 45 mg AT BEDTIME (route: oral) Med Classific ation: Central Nervous System Agents omeprazole 20 mg capsule,del ayed release 08-29 00:00: 00 Yes [id number] 20 mg TWICE DAILY 20 mg TWICE DAILY (route: oral) Med Classific ation: Gastroint estinal Therapy Agents lisinopril 40 mg tablet 09-25 00:00: 00 Yes [id number] 40 mg DAILY 40 mg DAILY (route: oral) Med Classific ation: Cardiovas cular Therapy Agents metformin 1,000 mg tablet 09-25 00:00: 00 09-22 23:59 :00 No [id number] 1000 mg 2 TIMES DAILY 1000 mg 2 TIMES DAILY (route: oral) Med Classific ation: Endocrine multivitami n tablet 09-25 00:00: 00 Yes [id number] 1 tablet DAILY 1 tablet DAILY (route: oral) Med Classific ation: Electroly te Balance-N utritiona l Products nifedipine ER 60 mg tablet,exte nded release 09-25 00:00: 00 Yes [id number] 60 mg EVERY PM 60 mg EVERY PM (route: oral) Med Classific ation: Cardiovas cular Therapy Agents pioglitazon e 15 mg tablet 09-25 00:00: 00 Yes [id number] 15 mg DAILY 15 mg DAILY (route: oral) Med Classific ation: Endocrine Tresiba FlexTouch U-100 insulin 100 unit/mL (3 mL) subcutaneou s pen 09-25 00:00: 00 Yes [id number] 10 In unit DAILY 10 In unit DAILY (route: subcutaneo ) Med Classific ation: Endocrine aspirin 81 mg tablet 09-22 00:00: 00 Yes [id number] 1 tablet DAILY 1 tablet DAILY (route: oral) Med Classific ation: Hematolog ical Agents docusate sodium 100 mg capsule 09-22 00:00: 00 Yes [id number] 1 capsule 2 TIMES DAILY 1 capsule 2 TIMES DAILY (route: oral) Med Classific ation: Gastroint estinal Therapy Agents ferrous sulfate 325 mg (65 mg iron) tablet 09-22 00:00: 00 Yes [id number] 1 tablet 2 TIMES DAILY 1 tablet 2 TIMES DAILY (route: oral) Med Classific ation: Electroly te Balance-N utritiona l Products isosorbide mononitrate ER 30 mg tablet,exte nded release 24 hr 09-22 00:00: 00 Yes [id number] 1 tablet DAILY 1 tablet DAILY (route: [...] AWARENESS FOR SAFETY AND WILL NOTIFY CLINICAL PAYROLL CLERK AND PHYSICIAN/PROVIDER WITH ANY CHANGE IN CONDITION. [code = SKILLED NURSE WILL MAINTAIN SITUATIONAL AWARENESS FOR SAFETY AND WILL NOTIFY CLINICAL PAYROLL CLERK AND PHYSICIAN/PROVIDER WITH ANY CHANGE IN CONDITION.] [...] Date/Time Encounter Type Admission Type Attending [facility] Care Department Encounter ID Discharge Date Discharge Status Discharge Condition Discharge Reason Percent Goals Met 2024-11-19 00:00:00 2025-01-17 00:00:00 Outpatient RECERTIFIC ATION ERIC EDDY [facility] [id number] 48.39
--- OUTSIDE RECORDS SUMMARY | 2025-01-16 19:00 | XMS_ITS | Clinical Summary ---
Author Organization Unknown Care Team Providers Care Manager Drug Safety Name Role Phone ADILIA FELIPE, VIOLETA Unavailable Unavailable SURJIT DAVID, ERIC Unavailable Unavailable Payers Payer Name Policy Type Policy Number Effective Date Expira tion Date MEDICAID [facility] [id number] Problems Condition Name Condition Details Condition Category Status Onset Date Resolution Date Last Treatment Date Treating Clinician Comments ESSENTIAL (PRIMARY) HYPERTENSION Active 09-21 00:00: 00 ATHSCL HEART DISEASE OF [place] CORONARY ARTERY W/O ANG PCTRS Active 09-21 [...] CIGARETTES, UNCOMPLICATE D Active 09-21 00:00: 00 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 09-21 00:00: 00 RESIDENTIAL (CURRENT) USE OF ANTITHROMBOT ICS/ANTIPLAT ELETS Active [...] release 24 hr 805 00:00: 00 Yes [id number] 60 mg AT BEDTIME 60 mg AT BEDTIME (route: oral) Med Classific ation: Cardiovas cular Therapy Agents oxycodone 5 mg tablet 09-04 00:00: 00 11-19 23:59 :00 No [id number] Unavailable 5 mg FIVE TIMES DAILY NEEDED 5 mg FIVE TIMES DAILY NEEDED (route: oral) Med Classific ation: Analgesic , Anti-infl ammatory or Antipyret ic gabapentin 600 mg tablet 09-03 00:00: 00 09-25 23:59 :00 No [id number] 600 mg 2 TIMES DAILY 600 mg 2 TIMES DAILY (route: oral) Med Classific ation: Central Nervous System Agents nicotine 21 mg/24 hr daily transdermal patch 08-30 00:00: 00 Yes [id number] Unavailable 21 mg DAILY 21 mg DAILY (route: transderma l) Med Classific ation: Chemical Dependenc y, Agents to Treat Alcohol Prep Pads 08-29 00:00: 00 05-18 23:59 :00 No [id number] 1 pads, medicat ed DIRECTED THREE TIMES DAILY AND NEEDED 1 pads, medicated DIRECTED THREE TIMES DAILY AND NEEDED (route: topical) Med Classific ation: Antisepti cs and Disinfect ants amitriptyli ne 50 mg tablet 08-29 00:00: 00 09-22 23:59 :00 No [id number] Unavailable 50 mg AT BEDTIME 50 mg AT BEDTIME (route: oral) Med Classific ation: Central Nervous System Agents Asmanex HFA 100 mcg/actuati on aerosol inhaler 08-29 00:00: 00 Yes [id number] 2 puff TWICE DAILY 2 puff TWICE DAILY (route: inhalation ) Med Classific ation: Respirato ry Therapy Agents atorvastati n 80 mg tablet 08-29 00:00: 00 Yes [id number] Unavailable 80 mg BEDTIME 80 mg BEDTIME (route: oral) Med Classific ation: Cardiovas cular Therapy Agents carvedilol 25 mg tablet 08-29 00:00: 00 Yes [id number] Unavailable 25 mg TWICE DAILY 25 mg TWICE DAILY (route: oral) Med Classific ation: Cardiovas cular Therapy Agents clopidogrel 75 mg tablet 08-29 00:00: 00 Yes [id number] 75 mg EVERY AM 75 mg EVERY AM (route: oral) Med Classific ation: Hematolog ical Agents docusate sodium 100 mg capsule 08-29 00:00: 00 09-25 23:59 :00 No [id number] Unavailable 100 mg TWICE DAILY 100 mg TWICE DAILY (route: oral) Med Classific ation: Gastroint estinal Therapy Agents escitalopra m 20 mg tablet 08-29 00:00: 00 Yes [id number] Unavailable 20 mg EVERY PM 20 mg EVERY PM (route: oral) Med Classific ation: Central Nervous System Agents FeroSul 325 mg (65 mg iron) tablet 08-29 00:00: 00 09-25 23:59 :00 No [id number] Unavailable 325 mg TWICE DAILY IN THE MORNING AND AT BEDTIME 325 mg TWICE DAILY IN THE MORNING AND AT BEDTIME (route: oral) Med Classific ation: Electroly te Balance-N utritiona l Products gabapentin 800 mg tablet 08-29 00:00: 00 09-22 23:59 :00 No [id number] 800 mg 2 TIMES DAILY 800 mg 2 TIMES DAILY (route: oral) Med Classific ation: Central Nervous System Agents hydralazine 25 mg tablet 08-29 00:00: 00 09-22 23:59 :00 No [id number] Unavailable 25 mg 3 TIMES DAILY 25 mg 3 TIMES DAILY (route: oral) Med Classific ation: Cardiovas cular Therapy Agents hydralazine 50 mg tablet 08-29 00:00: 00 09-25 23:59 :00 No [id number] Unavailable 50 mg THREE TIMES DAILY IN THE MORNING AT 50 mg THREE TIMES DAILY IN THE MORNING AT (route: oral) Med Classific ation: Cardiovas cular Therapy Agents mirtazapine 45 mg tablet 08-29 00:00: 00 Yes [id number] Unavailable 45 mg AT BEDTIME 45 mg AT BEDTIME (route: oral) Med Classific ation: Central Nervous System Agents omeprazole 20 mg capsule,del ayed release 08-29 00:00: 00 Yes [id number] 20 mg TWICE DAILY 20 mg TWICE DAILY (route: oral) Med Classific ation: Gastroint estinal Therapy Agents lisinopril 40 mg tablet 09-25 00:00: 00 Yes [id number] 40 mg DAILY 40 mg DAILY (route: oral) Med Classific ation: Cardiovas cular Therapy Agents metformin 1,000 mg tablet 09-25 00:00: 00 09-22 23:59 :00 No [id number] 1000 mg 2 TIMES DAILY 1000 mg 2 TIMES DAILY (route: oral) Med Classific ation: Endocrine multivitami n tablet 09-25 00:00: 00 Yes [id number] 1 tablet DAILY 1 tablet DAILY (route: oral) Med Classific ation: Electroly te Balance-N utritiona l Products nifedipine ER 60 mg tablet,exte nded release 09-25 00:00: 00 Yes [id number] 60 mg EVERY PM 60 mg EVERY PM (route: oral) Med Classific ation: Cardiovas cular Therapy Agents pioglitazon e 15 mg tablet 09-25 00:00: 00 Yes [id number] 15 mg DAILY 15 mg DAILY (route: oral) Med Classific ation: Endocrine Tresiba FlexTouch U-100 insulin 100 unit/mL (3 mL) subcutaneou s pen 09-25 00:00: 00 Yes [id number] 10 In unit DAILY 10 In unit DAILY (route: subcutaneo ) Med Classific ation: Endocrine aspirin 81 mg tablet 09-22 00:00: 00 Yes [id number] 1 tablet DAILY 1 tablet DAILY (route: oral) Med Classific ation: Hematolog ical Agents docusate sodium 100 mg capsule 09-22 00:00: 00 Yes [id number] 1 capsule 2 TIMES DAILY 1 capsule 2 TIMES DAILY (route: oral) Med Classific ation: Gastroint estinal Therapy Agents ferrous sulfate 325 mg (65 mg iron) tablet 09-22 00:00: 00 Yes [id number] 1 tablet 2 TIMES DAILY 1 tablet 2 TIMES DAILY (route: oral) Med Classific ation: Electroly te Balance-N utritiona l Products isosorbide mononitrate ER 30 mg tablet,exte nded release 24 hr 09-22 00:00: 00 Yes [id number] 1 tablet DAILY 1 tablet DAILY (route: [...] MEDICATION PER MEDICATION LIST TILL NEXT SENIOR CARE VISIT [code = SKILLED NURSE TO PRE-POUR MEDICATION PER MEDICATION LIST TILL NEXT SENIOR CARE VISIT] Future Scheduled Test PATIENT MA Y [...] AWARENESS FOR SAFETY AND WILL NOTIFY CLINICAL CAGE OPERATOR AND PHYSICIAN/PROVIDER WITH ANY CHANGE IN CONDITION. [code = SKILLED NURSE WILL MAINTAIN SITUATIONAL AWARENESS FOR SAFETY AND WILL NOTIFY CLINICAL CAGE OPERATOR AND PHYSICIAN/PROVIDER WITH ANY CHANGE IN [...] ATION ERIC EDDY [facility] [id number] 48.39
--- OUTSIDE RECORDS SUMMARY | 2025-01-16 19:00 | XMS_ITS | Clinical Summary ---
Author Organization Unknown Care Team Providers Care Lead Technical Writer Name Role Phone ADILIA FELIPE, VIOLETA Unavailable Unavailable SURJIT DAVID, ERIC Unavailable Unavailable Payers Payer Name Policy Type Policy Number Effective Date Expira tion Date MEDICAID [facility] [id number] Problems Condition Name Condition Details Condition Category Status Onset Date Resolution Date Last Treatment Date Treating Clinician Comments ESSENTIAL (PRIMARY) HYPERTENSION Active 09-21 00:00: 00 ATHSCL HEART DISEASE OF [place] CORONARY ARTERY W/O ANG PCTRS Active 09-21 [...] CIGARETTES, UNCOMPLICATE D Active 09-21 00:00: 00 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 09-21 00:00: 00 PRISON (CURRENT) USE OF ANTITHROMBOT ICS/ANTIPLAT ELETS Active [...] release 24 hr 805 00:00: 00 Yes [id number] 60 mg AT BEDTIME 60 mg AT BEDTIME (route: oral) Med Classific ation: Cardiovas cular Therapy Agents oxycodone 5 mg tablet 09-04 00:00: 00 11-19 23:59 :00 No [id number] Unavailable 5 mg FIVE TIMES DAILY NEEDED 5 mg FIVE TIMES DAILY NEEDED (route: oral) Med Classific ation: Analgesic , Anti-infl ammatory or Antipyret ic gabapentin 600 mg tablet 09-03 00:00: 00 09-25 23:59 :00 No [id number] 600 mg 2 TIMES DAILY 600 mg 2 TIMES DAILY (route: oral) Med Classific ation: Central Nervous System Agents nicotine 21 mg/24 hr daily transdermal patch 08-30 00:00: 00 Yes [id number] Unavailable 21 mg DAILY 21 mg DAILY (route: transderma l) Med Classific ation: Chemical Dependenc y, Agents to Treat Alcohol Prep Pads 08-29 00:00: 00 05-18 23:59 :00 No [id number] 1 pads, medicat ed DIRECTED THREE TIMES DAILY AND NEEDED 1 pads, medicated DIRECTED THREE TIMES DAILY AND NEEDED (route: topical) Med Classific ation: Antisepti cs and Disinfect ants amitriptyli ne 50 mg tablet 08-29 00:00: 00 09-22 23:59 :00 No [id number] Unavailable 50 mg AT BEDTIME 50 mg AT BEDTIME (route: oral) Med Classific ation: Central Nervous System Agents Asmanex HFA 100 mcg/actuati on aerosol inhaler 08-29 00:00: 00 Yes [id number] 2 puff TWICE DAILY 2 puff TWICE DAILY (route: inhalation ) Med Classific ation: Respirato ry Therapy Agents atorvastati n 80 mg tablet 08-29 00:00: 00 Yes [id number] Unavailable 80 mg BEDTIME 80 mg BEDTIME (route: oral) Med Classific ation: Cardiovas cular Therapy Agents carvedilol 25 mg tablet 08-29 00:00: 00 Yes [id number] Unavailable 25 mg TWICE DAILY 25 mg TWICE DAILY (route: oral) Med Classific ation: Cardiovas cular Therapy Agents clopidogrel 75 mg tablet 08-29 00:00: 00 Yes [id number] 75 mg EVERY AM 75 mg EVERY AM (route: oral) Med Classific ation: Hematolog ical Agents docusate sodium 100 mg capsule 08-29 00:00: 00 09-25 23:59 :00 No [id number] Unavailable 100 mg TWICE DAILY 100 mg TWICE DAILY (route: oral) Med Classific ation: Gastroint estinal Therapy Agents escitalopra m 20 mg tablet 08-29 00:00: 00 Yes [id number] Unavailable 20 mg EVERY PM 20 mg EVERY PM (route: oral) Med Classific ation: Central Nervous System Agents FeroSul 325 mg (65 mg iron) tablet 08-29 00:00: 00 09-25 23:59 :00 No [id number] Unavailable 325 mg TWICE DAILY IN THE MORNING AND AT BEDTIME 325 mg TWICE DAILY IN THE MORNING AND AT BEDTIME (route: oral) Med Classific ation: Electroly te Balance-N utritiona l Products gabapentin 800 mg tablet 08-29 00:00: 00 09-22 23:59 :00 No [id number] 800 mg 2 TIMES DAILY 800 mg 2 TIMES DAILY (route: oral) Med Classific ation: Central Nervous System Agents hydralazine 25 mg tablet 08-29 00:00: 00 09-22 23:59 :00 No [id number] Unavailable 25 mg 3 TIMES DAILY 25 mg 3 TIMES DAILY (route: oral) Med Classific ation: Cardiovas cular Therapy Agents hydralazine 50 mg tablet 08-29 00:00: 00 09-25 23:59 :00 No [id number] Unavailable 50 mg THREE TIMES DAILY IN THE MORNING AT 50 mg THREE TIMES DAILY IN THE MORNING AT (route: oral) Med Classific ation: Cardiovas cular Therapy Agents mirtazapine 45 mg tablet 08-29 00:00: 00 Yes [id number] Unavailable 45 mg AT BEDTIME 45 mg AT BEDTIME (route: oral) Med Classific ation: Central Nervous System Agents omeprazole 20 mg capsule,del ayed release 08-29 00:00: 00 Yes [id number] 20 mg TWICE DAILY 20 mg TWICE DAILY (route: oral) Med Classific ation: Gastroint estinal Therapy Agents lisinopril 40 mg tablet 09-25 00:00: 00 Yes [id number] 40 mg DAILY 40 mg DAILY (route: oral) Med Classific ation: Cardiovas cular Therapy Agents metformin 1,000 mg tablet 09-25 00:00: 00 09-22 23:59 :00 No [id number] 1000 mg 2 TIMES DAILY 1000 mg 2 TIMES DAILY (route: oral) Med Classific ation: Endocrine multivitami n tablet 09-25 00:00: 00 Yes [id number] 1 tablet DAILY 1 tablet DAILY (route: oral) Med Classific ation: Electroly te Balance-N utritiona l Products nifedipine ER 60 mg tablet,exte nded release 09-25 00:00: 00 Yes [id number] 60 mg EVERY PM 60 mg EVERY PM (route: oral) Med Classific ation: Cardiovas cular Therapy Agents pioglitazon e 15 mg tablet 09-25 00:00: 00 Yes [id number] 15 mg DAILY 15 mg DAILY (route: oral) Med Classific ation: Endocrine Tresiba FlexTouch U-100 insulin 100 unit/mL (3 mL) subcutaneou s pen 09-25 00:00: 00 Yes [id number] 10 In unit DAILY 10 In unit DAILY (route: subcutaneo ) Med Classific ation: Endocrine aspirin 81 mg tablet 09-22 00:00: 00 Yes [id number] 1 tablet DAILY 1 tablet DAILY (route: oral) Med Classific ation: Hematolog ical Agents docusate sodium 100 mg capsule 09-22 00:00: 00 Yes [id number] 1 capsule 2 TIMES DAILY 1 capsule 2 TIMES DAILY (route: oral) Med Classific ation: Gastroint estinal Therapy Agents ferrous sulfate 325 mg (65 mg iron) tablet 09-22 00:00: 00 Yes [id number] 1 tablet 2 TIMES DAILY 1 tablet 2 TIMES DAILY (route: oral) Med Classific ation: Electroly te Balance-N utritiona l Products isosorbide mononitrate ER 30 mg tablet,exte nded release 24 hr 09-22 00:00: 00 Yes [id number] 1 tablet DAILY 1 tablet DAILY (route: [...] FOR SAFETY AND WILL NOTIFY CLINICAL SENIOR DEVOPS ENGINEER AND PHYSICIAN/PROVIDER WITH ANY CHANGE IN CONDITION. [code = SKILLED NURSE WILL MAINTAIN SITUATIONAL AWARENESS FOR SAFETY AND WILL NOTIFY CLINICAL SENIOR DEVOPS ENGINEER AND PHYSICIAN/PROVIDER WITH ANY CHANGE IN CONDITION.] [...] 2025-01-17 00:00:00 Outpatient RECERTIFIC ATION ERIC EDDY [facility] [id number] 48.39
--- OUTSIDE RECORDS SUMMARY | 2025-01-16 19:00 | XMS_ITS | Clinical Summary ---
Author Organization Unknown Care Team Providers Care Sound Editor Name Role Phone ADILIA FELIPE, VIOLETA Unavailable Unavailable SURJIT DAVID, ERIC Unavailable Unavailable Payers Payer Name Policy Type Policy Number Effective Date Expira tion Date MEDICAID [facility] [id number] Problems Condition Name Condition Details Condition Category Status Onset Date Resolution Date Last Treatment Date Treating Clinician Comments ESSENTIAL (PRIMARY) HYPERTENSION Active 09-21 00:00: 00 ATHSCL HEART DISEASE OF [place] CORONARY ARTERY W/O ANG PCTRS Active 09-21 [...] CIGARETTES, UNCOMPLICATE D Active 09-21 00:00: 00 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 09-21 00:00: [...] release 24 hr 805 00:00: 00 Yes [id number] 60 mg AT BEDTIME 60 mg AT BEDTIME (route: oral) Med Classific ation: Cardiovas cular Therapy Agents oxycodone 5 mg tablet 09-04 00:00: 00 11-19 23:59 :00 No [id number] Unavailable 5 mg FIVE TIMES DAILY NEEDED 5 mg FIVE TIMES DAILY NEEDED (route: oral) Med Classific ation: Analgesic , Anti-infl ammatory or Antipyret ic gabapentin 600 mg tablet 09-03 00:00: 00 09-25 23:59 :00 No [id number] 600 mg 2 TIMES DAILY 600 mg 2 TIMES DAILY (route: oral) Med Classific ation: Central Nervous System Agents nicotine 21 mg/24 hr daily transdermal patch 08-30 00:00: 00 Yes [id number] Unavailable 21 mg DAILY 21 mg DAILY (route: transderma l) Med Classific ation: Chemical Dependenc y, Agents to Treat Alcohol Prep Pads 08-29 00:00: 00 05-18 23:59 :00 No [id number] 1 pads, medicat ed DIRECTED THREE TIMES DAILY AND NEEDED 1 pads, medicated DIRECTED THREE TIMES DAILY AND NEEDED (route: topical) Med Classific ation: Antisepti cs and Disinfect ants amitriptyli ne 50 mg tablet 08-29 00:00: 00 09-22 23:59 :00 No [id number] Unavailable 50 mg AT BEDTIME 50 mg AT BEDTIME (route: oral) Med Classific ation: Central Nervous System Agents Asmanex HFA 100 mcg/actuati on aerosol inhaler 08-29 00:00: 00 Yes [id number] 2 puff TWICE DAILY 2 puff TWICE DAILY (route: inhalation ) Med Classific ation: Respirato ry Therapy Agents atorvastati n 80 mg tablet 08-29 00:00: 00 Yes [id number] Unavailable 80 mg BEDTIME 80 mg BEDTIME (route: oral) Med Classific ation: Cardiovas cular Therapy Agents carvedilol 25 mg tablet 08-29 00:00: 00 Yes [id number] Unavailable 25 mg TWICE DAILY 25 mg TWICE DAILY (route: oral) Med Classific ation: Cardiovas cular Therapy Agents clopidogrel 75 mg tablet 08-29 00:00: 00 Yes [id number] 75 mg EVERY AM 75 mg EVERY AM (route: oral) Med Classific ation: Hematolog ical Agents docusate sodium 100 mg capsule 08-29 00:00: 00 09-25 23:59 :00 No [id number] Unavailable 100 mg TWICE DAILY 100 mg TWICE DAILY (route: oral) Med Classific ation: Gastroint estinal Therapy Agents escitalopra m 20 mg tablet 08-29 00:00: 00 Yes [id number] Unavailable 20 mg EVERY PM 20 mg EVERY PM (route: oral) Med Classific ation: Central Nervous System Agents FeroSul 325 mg (65 mg iron) tablet 08-29 00:00: 00 09-25 23:59 :00 No [id number] Unavailable 325 mg TWICE DAILY IN THE MORNING AND AT BEDTIME 325 mg TWICE DAILY IN THE MORNING AND AT BEDTIME (route: oral) Med Classific ation: Electroly te Balance-N utritiona l Products gabapentin 800 mg tablet 08-29 00:00: 00 09-22 23:59 :00 No [id number] 800 mg 2 TIMES DAILY 800 mg 2 TIMES DAILY (route: oral) Med Classific ation: Central Nervous System Agents hydralazine 25 mg tablet 08-29 00:00: 00 09-22 23:59 :00 No [id number] Unavailable 25 mg 3 TIMES DAILY 25 mg 3 TIMES DAILY (route: oral) Med Classific ation: Cardiovas cular Therapy Agents hydralazine 50 mg tablet 08-29 00:00: 00 09-25 23:59 :00 No [id number] Unavailable 50 mg THREE TIMES DAILY IN THE MORNING AT 50 mg THREE TIMES DAILY IN THE MORNING AT (route: oral) Med Classific ation: Cardiovas cular Therapy Agents mirtazapine 45 mg tablet 08-29 00:00: 00 Yes [id number] Unavailable 45 mg AT BEDTIME 45 mg AT BEDTIME (route: oral) Med Classific ation: Central Nervous System Agents omeprazole 20 mg capsule,del ayed release 08-29 00:00: 00 Yes [id number] 20 mg TWICE DAILY 20 mg TWICE DAILY (route: oral) Med Classific ation: Gastroint estinal Therapy Agents lisinopril 40 mg tablet 09-25 00:00: 00 Yes [id number] 40 mg DAILY 40 mg DAILY (route: oral) Med Classific ation: Cardiovas cular Therapy Agents metformin 1,000 mg tablet 09-25 00:00: 00 09-22 23:59 :00 No [id number] 1000 mg 2 TIMES DAILY 1000 mg 2 TIMES DAILY (route: oral) Med Classific ation: Endocrine multivitami n tablet 09-25 00:00: 00 Yes [id number] 1 tablet DAILY 1 tablet DAILY (route: oral) Med Classific ation: Electroly te Balance-N utritiona l Products nifedipine ER 60 mg tablet,exte nded release 09-25 00:00: 00 Yes [id number] 60 mg EVERY PM 60 mg EVERY PM (route: oral) Med Classific ation: Cardiovas cular Therapy Agents pioglitazon e 15 mg tablet 09-25 00:00: 00 Yes [id number] 15 mg DAILY 15 mg DAILY (route: oral) Med Classific ation: Endocrine Tresiba FlexTouch U-100 insulin 100 unit/mL (3 mL) subcutaneou s pen 09-25 00:00: 00 Yes [id number] 10 In unit DAILY 10 In unit DAILY (route: subcutaneo ) Med Classific ation: Endocrine aspirin 81 mg tablet 09-22 00:00: 00 Yes [id number] 1 tablet DAILY 1 tablet DAILY (route: oral) Med Classific ation: Hematolog ical Agents docusate sodium 100 mg capsule 09-22 00:00: 00 Yes [id number] 1 capsule 2 TIMES DAILY 1 capsule 2 TIMES DAILY (route: oral) Med Classific ation: Gastroint estinal Therapy Agents ferrous sulfate 325 mg (65 mg iron) tablet 09-22 00:00: 00 Yes [id number] 1 tablet 2 TIMES DAILY 1 tablet 2 TIMES DAILY (route: oral) Med Classific ation: Electroly te Balance-N utritiona l Products isosorbide mononitrate ER 30 mg tablet,exte nded release 24 hr 09-22 00:00: 00 Yes [id number] 1 tablet DAILY 1 tablet DAILY (route: [...] AWARENESS FOR SAFETY AND WILL NOTIFY CLINICAL CCIE AND PHYSICIAN/PROVIDER WITH ANY CHANGE IN CONDITION. [code = SKILLED NURSE WILL MAINTAIN SITUATIONAL AWARENESS FOR SAFETY AND WILL NOTIFY CLINICAL CCIE AND PHYSICIAN/PROVIDER WITH ANY CHANGE IN CONDITION.] [...] RECERTIFIC ATION ERIC EDDY [facility] [id number] 48.39
--- OUTSIDE RECORDS SUMMARY | 2025-01-16 19:00 | XMS_ITS | Clinical Summary ---
Author Organization Unknown Care Team Providers Care Category Manager Name Role Phone ADILIA FELIPE, VIOLETA Unavailable Unavailable SURJIT DAVID, ERIC Unavailable Unavailable Payers Payer Name Policy Type Policy Number Effective Date Expira tion Date MEDICAID [facility] [id number] Problems Condition Name Condition Details Condition Category Status Onset Date Resolution Date Last Treatment Date Treating Clinician Comments ESSENTIAL (PRIMARY) HYPERTENSION Active 09-21 00:00: 00 ATHSCL HEART DISEASE OF [place] CORONARY ARTERY W/O ANG PCTRS Active 09-21 [...] CIGARETTES, UNCOMPLICATE D Active 09-21 00:00: 00 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 09-21 00:00: [...] release 24 hr 805 00:00: 00 Yes [id number] 60 mg AT BEDTIME 60 mg AT BEDTIME (route: oral) Med Classific ation: Cardiovas cular Therapy Agents oxycodone 5 mg tablet 09-04 00:00: 00 11-19 23:59 :00 No [id number] Unavailable 5 mg FIVE TIMES DAILY NEEDED 5 mg FIVE TIMES DAILY NEEDED (route: oral) Med Classific ation: Analgesic , Anti-infl ammatory or Antipyret ic gabapentin 600 mg tablet 09-03 00:00: 00 09-25 23:59 :00 No [id number] 600 mg 2 TIMES DAILY 600 mg 2 TIMES DAILY (route: oral) Med Classific ation: Central Nervous System Agents nicotine 21 mg/24 hr daily transdermal patch 08-30 00:00: 00 Yes [id number] Unavailable 21 mg DAILY 21 mg DAILY (route: transderma l) Med Classific ation: Chemical Dependenc y, Agents to Treat Alcohol Prep Pads 08-29 00:00: 00 05-18 23:59 :00 No [id number] 1 pads, medicat ed DIRECTED THREE TIMES DAILY AND NEEDED 1 pads, medicated DIRECTED THREE TIMES DAILY AND NEEDED (route: topical) Med Classific ation: Antisepti cs and Disinfect ants amitriptyli ne 50 mg tablet 08-29 00:00: 00 09-22 23:59 :00 No [id number] Unavailable 50 mg AT BEDTIME 50 mg AT BEDTIME (route: oral) Med Classific ation: Central Nervous System Agents Asmanex HFA 100 mcg/actuati on aerosol inhaler 08-29 00:00: 00 Yes [id number] 2 puff TWICE DAILY 2 puff TWICE DAILY (route: inhalation ) Med Classific ation: Respirato ry Therapy Agents atorvastati n 80 mg tablet 08-29 00:00: 00 Yes [id number] Unavailable 80 mg BEDTIME 80 mg BEDTIME (route: oral) Med Classific ation: Cardiovas cular Therapy Agents carvedilol 25 mg tablet 08-29 00:00: 00 Yes [id number] Unavailable 25 mg TWICE DAILY 25 mg TWICE DAILY (route: oral) Med Classific ation: Cardiovas cular Therapy Agents clopidogrel 75 mg tablet 08-29 00:00: 00 Yes [id number] 75 mg EVERY AM 75 mg EVERY AM (route: oral) Med Classific ation: Hematolog ical Agents docusate sodium 100 mg capsule 08-29 00:00: 00 09-25 23:59 :00 No [id number] Unavailable 100 mg TWICE DAILY 100 mg TWICE DAILY (route: oral) Med Classific ation: Gastroint estinal Therapy Agents escitalopra m 20 mg tablet 08-29 00:00: 00 Yes [id number] Unavailable 20 mg EVERY PM 20 mg EVERY PM (route: oral) Med Classific ation: Central Nervous System Agents FeroSul 325 mg (65 mg iron) tablet 08-29 00:00: 00 09-25 23:59 :00 No [id number] Unavailable 325 mg TWICE DAILY IN THE MORNING AND AT BEDTIME 325 mg TWICE DAILY IN THE MORNING AND AT BEDTIME (route: oral) Med Classific ation: Electroly te Balance-N utritiona l Products gabapentin 800 mg tablet 08-29 00:00: 00 09-22 23:59 :00 No [id number] 800 mg 2 TIMES DAILY 800 mg 2 TIMES DAILY (route: oral) Med Classific ation: Central Nervous System Agents hydralazine 25 mg tablet 08-29 00:00: 00 09-22 23:59 :00 No [id number] Unavailable 25 mg 3 TIMES DAILY 25 mg 3 TIMES DAILY (route: oral) Med Classific ation: Cardiovas cular Therapy Agents hydralazine 50 mg tablet 08-29 00:00: 00 09-25 23:59 :00 No [id number] Unavailable 50 mg THREE TIMES DAILY IN THE MORNING AT 50 mg THREE TIMES DAILY IN THE MORNING AT (route: oral) Med Classific ation: Cardiovas cular Therapy Agents mirtazapine 45 mg tablet 08-29 00:00: 00 Yes [id number] Unavailable 45 mg AT BEDTIME 45 mg AT BEDTIME (route: oral) Med Classific ation: Central Nervous System Agents omeprazole 20 mg capsule,del ayed release 08-29 00:00: 00 Yes [id number] 20 mg TWICE DAILY 20 mg TWICE DAILY (route: oral) Med Classific ation: Gastroint estinal Therapy Agents lisinopril 40 mg tablet 09-25 00:00: 00 Yes [id number] 40 mg DAILY 40 mg DAILY (route: oral) Med Classific ation: Cardiovas cular Therapy Agents metformin 1,000 mg tablet 09-25 00:00: 00 09-22 23:59 :00 No [id number] 1000 mg 2 TIMES DAILY 1000 mg 2 TIMES DAILY (route: oral) Med Classific ation: Endocrine multivitami n tablet 09-25 00:00: 00 Yes [id number] 1 tablet DAILY 1 tablet DAILY (route: oral) Med Classific ation: Electroly te Balance-N utritiona l Products nifedipine ER 60 mg tablet,exte nded release 09-25 00:00: 00 Yes [id number] 60 mg EVERY PM 60 mg EVERY PM (route: oral) Med Classific ation: Cardiovas cular Therapy Agents pioglitazon e 15 mg tablet 09-25 00:00: 00 Yes [id number] 15 mg DAILY 15 mg DAILY (route: oral) Med Classific ation: Endocrine Tresiba FlexTouch U-100 insulin 100 unit/mL (3 mL) subcutaneou s pen 09-25 00:00: 00 Yes [id number] 10 In unit DAILY 10 In unit DAILY (route: subcutaneo ) Med Classific ation: Endocrine aspirin 81 mg tablet 09-22 00:00: 00 Yes [id number] 1 tablet DAILY 1 tablet DAILY (route: oral) Med Classific ation: Hematolog ical Agents docusate sodium 100 mg capsule 09-22 00:00: 00 Yes [id number] 1 capsule 2 TIMES DAILY 1 capsule 2 TIMES DAILY (route: oral) Med Classific ation: Gastroint estinal Therapy Agents ferrous sulfate 325 mg (65 mg iron) tablet 09-22 00:00: 00 Yes [id number] 1 tablet 2 TIMES DAILY 1 tablet 2 TIMES DAILY (route: oral) Med Classific ation: Electroly te Balance-N utritiona l Products isosorbide mononitrate ER 30 mg tablet,exte nded release 24 hr 09-22 00:00: 00 Yes [id number] 1 tablet DAILY 1 tablet DAILY (route: [...] PRE-POUR MEDICATION PER MEDICATION LIST TILL NEXT DETENTION VISIT [code = SKILLED NURSE TO PRE-POUR MEDICATION PER MEDICATION LIST TILL NEXT DETENTION VISIT] Future Scheduled Test PATIENT MA Y [...] MEDICATIONS DAILY AND PRE-POUR MEDICATIONS TILL NEXT DETENTION VISIT PER MEDICATION LIST. [code = SKILLED NURSE TO ADMINISTER MEDICATIONS DAILY AND PRE-POUR MEDICATIONS TILL NEXT DETENTION VISIT PER MEDICATION LIST.] Future Scheduled Test [...] FOR SAFETY AND WILL NOTIFY CLINICAL PLANT SAFETY ENGINEER AND PHYSICIAN/PROVIDER WITH ANY CHANGE IN CONDITION. [code = SKILLED NURSE WILL MAINTAIN SITUATIONAL AWARENESS FOR SAFETY AND WILL NOTIFY CLINICAL PLANT SAFETY ENGINEER AND PHYSICIAN/PROVIDER WITH ANY CHANGE IN [...] CARE WILL BE ESTABLISHED THAT MEETS PATIENT'S DETENTION NEEDS AND INCLUDES PATIENT GOAL FOR HOME [...] Date/Time Encounter Type Admission Type Attending [facility] Care Department Encounter ID Discharge Date Discharge Status Discharge Condition Discharge Reason Percent Goals Met 2024-11-19 00:00:00 2025-01-17 00:00:00 Outpatient RECERTIFIC ATION ERIC EDDY [facility] [id number] 48.39
--- OUTSIDE RECORDS SUMMARY | 2025-01-16 19:00 | XMS_ITS | Clinical Summary ---
Author Organization Unknown Care Team Providers Care Card Brusher Name Role Phone ADILIA FELIPE, VIOLETA Unavailable Unavailable SURJIT DVAID, ERIC Unavailable Unavailable Payers Payer Name Policy Type Policy Number Effective Date Expira tion Date MEDICAID [facility] [id number] Problems Condition Name Condition Details Condition Category Status Onset Date Resolution Date Last Treatment Date Treating Clinician Comments ESSENTIAL (PRIMARY) HYPERTENSION Active 09-21 00:00: 00 ATHSCL HEART DISEASE OF [place] CORONARY ARTERY W/O ANG PCTRS Active 09-21 [...] CIGARETTES, UNCOMPLICATE D Active 09-21 00:00: 00 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 Active 09-21 00:00: [...] release 24 hr 805 00:00: 00 Yes [id number] 60 mg AT BEDTIME 60 mg AT BEDTIME (route: oral) Med Classific ation: Cardiovas cular Therapy Agents oxycodone 5 mg tablet 09-04 00:00: 00 11-19 23:59 :00 No [id number] Unavailable 5 mg FIVE TIMES DAILY NEEDED 5 mg FIVE TIMES DAILY NEEDED (route: oral) Med Classific ation: Analgesic , Anti-infl ammatory or Antipyret ic gabapentin 600 mg tablet 09-03 00:00: 00 09-25 23:59 :00 No [id number] 600 mg 2 TIMES DAILY 600 mg 2 TIMES DAILY (route: oral) Med Classific ation: Central Nervous System Agents nicotine 21 mg/24 hr daily transdermal patch 08-30 00:00: 00 Yes [id number] Unavailable 21 mg DAILY 21 mg DAILY (route: transderma l) Med Classific ation: Chemical Dependenc y, Agents to Treat Alcohol Prep Pads 08-29 00:00: 00 05-18 23:59 :00 No [id number] 1 pads, medicat ed DIRECTED THREE TIMES DAILY AND NEEDED 1 pads, medicated DIRECTED THREE TIMES DAILY AND NEEDED (route: topical) Med Classific ation: Antisepti cs and Disinfect ants amitriptyli ne 50 mg tablet 08-29 00:00: 00 09-22 23:59 :00 No [id number] Unavailable 50 mg AT BEDTIME 50 mg AT BEDTIME (route: oral) Med Classific ation: Central Nervous System Agents Asmanex HFA 100 mcg/actuati on aerosol inhaler 08-29 00:00: 00 Yes [id number] 2 puff TWICE DAILY 2 puff TWICE DAILY (route: inhalation ) Med Classific ation: Respirato ry Therapy Agents atorvastati n 80 mg tablet 08-29 00:00: 00 Yes [id number] Unavailable 80 mg BEDTIME 80 mg BEDTIME (route: oral) Med Classific ation: Cardiovas cular Therapy Agents carvedilol 25 mg tablet 08-29 00:00: 00 Yes [id number] Unavailable 25 mg TWICE DAILY 25 mg TWICE DAILY (route: oral) Med Classific ation: Cardiovas cular Therapy Agents clopidogrel 75 mg tablet 08-29 00:00: 00 Yes [id number] 75 mg EVERY AM 75 mg EVERY AM (route: oral) Med Classific ation: Hematolog ical Agents docusate sodium 100 mg capsule 08-29 00:00: 00 09-25 23:59 :00 No [id number] Unavailable 100 mg TWICE DAILY 100 mg TWICE DAILY (route: oral) Med Classific ation: Gastroint estinal Therapy Agents escitalopra m 20 mg tablet 08-29 00:00: 00 Yes [id number] Unavailable 20 mg EVERY PM 20 mg EVERY PM (route: oral) Med Classific ation: Central Nervous System Agents FeroSul 325 mg (65 mg iron) tablet 08-29 00:00: 00 09-25 23:59 :00 No [id number] Unavailable 325 mg TWICE DAILY IN THE MORNING AND AT BEDTIME 325 mg TWICE DAILY IN THE MORNING AND AT BEDTIME (route: oral) Med Classific ation: Electroly te Balance-N utritiona l Products gabapentin 800 mg tablet 08-29 00:00: 00 09-22 23:59 :00 No [id number] 800 mg 2 TIMES DAILY 800 mg 2 TIMES DAILY (route: oral) Med Classific ation: Central Nervous System Agents hydralazine 25 mg tablet 08-29 00:00: 00 09-22 23:59 :00 No [id number] Unavailable 25 mg 3 TIMES DAILY 25 mg 3 TIMES DAILY (route: oral) Med Classific ation: Cardiovas cular Therapy Agents hydralazine 50 mg tablet 08-29 00:00: 00 09-25 23:59 :00 No [id number] Unavailable 50 mg THREE TIMES DAILY IN THE MORNING AT 50 mg THREE TIMES DAILY IN THE MORNING AT (route: oral) Med Classific ation: Cardiovas cular Therapy Agents mirtazapine 45 mg tablet 08-29 00:00: 00 Yes [id number] Unavailable 45 mg AT BEDTIME 45 mg AT BEDTIME (route: oral) Med Classific ation: Central Nervous System Agents omeprazole 20 mg capsule,del ayed release 08-29 00:00: 00 Yes [id number] 20 mg TWICE DAILY 20 mg TWICE DAILY (route: oral) Med Classific ation: Gastroint estinal Therapy Agents lisinopril 40 mg tablet 09-25 00:00: 00 Yes [id number] 40 mg DAILY 40 mg DAILY (route: oral) Med Classific ation: Cardiovas cular Therapy Agents metformin 1,000 mg tablet 09-25 00:00: 00 09-22 23:59 :00 No [id number] 1000 mg 2 TIMES DAILY 1000 mg 2 TIMES DAILY (route: oral) Med Classific ation: Endocrine multivitami n tablet 09-25 00:00: 00 Yes [id number] 1 tablet DAILY 1 tablet DAILY (route: oral) Med Classific ation: Electroly te Balance-N utritiona l Products nifedipine ER 60 mg tablet,exte nded release 09-25 00:00: 00 Yes [id number] 60 mg EVERY PM 60 mg EVERY PM (route: oral) Med Classific ation: Cardiovas cular Therapy Agents pioglitazon e 15 mg tablet 09-25 00:00: 00 Yes [id number] 15 mg DAILY 15 mg DAILY (route: oral) Med Classific ation: Endocrine Tresiba FlexTouch U-100 insulin 100 unit/mL (3 mL) subcutaneou s pen 09-25 00:00: 00 Yes [id number] 10 In unit DAILY 10 In unit DAILY (route: subcutaneo ) Med Classific ation: Endocrine aspirin 81 mg tablet 09-22 00:00: 00 Yes [id number] 1 tablet DAILY 1 tablet DAILY (route: oral) Med Classific ation: Hematolog ical Agents docusate sodium 100 mg capsule 09-22 00:00: 00 Yes [id number] 1 capsule 2 TIMES DAILY 1 capsule 2 TIMES DAILY (route: oral) Med Classific ation: Gastroint estinal Therapy Agents ferrous sulfate 325 mg (65 mg iron) tablet 09-22 00:00: 00 Yes [id number] 1 tablet 2 TIMES DAILY 1 tablet 2 TIMES DAILY (route: oral) Med Classific ation: Electroly te Balance-N utritiona l Products isosorbide mononitrate ER 30 mg tablet,exte nded release 24 hr 09-22 00:00: 00 Yes [id number] 1 tablet DAILY 1 tablet DAILY (route: [...] AWARENESS FOR SAFETY AND WILL NOTIFY CLINICAL BOTTLE PACKING MACHINE CLEANER AND PHYSICIAN/PROVIDER WITH ANY CHANGE IN CONDITION. [code = SKILLED NURSE WILL MAINTAIN SITUATIONAL AWARENESS FOR SAFETY AND WILL NOTIFY CLINICAL BOTTLE PACKING MACHINE CLEANER AND PHYSICIAN/PROVIDER WITH ANY CHANGE IN CONDITION.] [...] RECERTIFIC ATION ERIC EDDY [facility] [id number] 48.39
--- OUTSIDE RECORDS SUMMARY | 2025-01-16 19:00 | XMS_ITS | Clinical Summary ---
Author Organization Unknown Care Team Providers Care Procedures Rn Name Role Phone ADILIA FELIPE, VIOLETA Unavailable Unavailable SURJIT DAVID, ERIC Unavailable Unavailable Payers Payer Name Policy Type Policy Number Effective Date Expira tion Date MEDICAID [facility] [id number] Problems Condition Name Condition Details Condition Category Status Onset Date Resolution Date Last Treatment Date Treating Clinician Comments ESSENTIAL (PRIMARY) HYPERTENSION Active 09-21 00:00: 00 ATHSCL HEART DISEASE OF [place] CORONARY ARTERY W/O ANG PCTRS Active 09-21 [...] CIGARETTES, UNCOMPLICATE D Active 09-21 00:00: 00 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 09-21 00:00: [...] release 24 hr 805 00:00: 00 Yes [id number] 60 mg AT BEDTIME 60 mg AT BEDTIME (route: oral) Med Classific ation: Cardiovas cular Therapy Agents oxycodone 5 mg tablet 09-04 00:00: 00 11-19 23:59 :00 No [id number] Unavailable 5 mg FIVE TIMES DAILY NEEDED 5 mg FIVE TIMES DAILY NEEDED (route: oral) Med Classific ation: Analgesic , Anti-infl ammatory or Antipyret ic gabapentin 600 mg tablet 09-03 00:00: 00 09-25 23:59 :00 No [id number] 600 mg 2 TIMES DAILY 600 mg 2 TIMES DAILY (route: oral) Med Classific ation: Central Nervous System Agents nicotine 21 mg/24 hr daily transdermal patch 08-30 00:00: 00 Yes [id number] Unavailable 21 mg DAILY 21 mg DAILY (route: transderma l) Med Classific ation: Chemical Dependenc y, Agents to Treat Alcohol Prep Pads 08-29 00:00: 00 05-18 23:59 :00 No [id number] 1 pads, medicat ed DIRECTED THREE TIMES DAILY AND NEEDED 1 pads, medicated DIRECTED THREE TIMES DAILY AND NEEDED (route: topical) Med Classific ation: Antisepti cs and Disinfect ants amitriptyli ne 50 mg tablet 08-29 00:00: 00 09-22 23:59 :00 No [id number] Unavailable 50 mg AT BEDTIME 50 mg AT BEDTIME (route: oral) Med Classific ation: Central Nervous System Agents Asmanex HFA 100 mcg/actuati on aerosol inhaler 08-29 00:00: 00 Yes [id number] 2 puff TWICE DAILY 2 puff TWICE DAILY (route: inhalation ) Med Classific ation: Respirato ry Therapy Agents atorvastati n 80 mg tablet 08-29 00:00: 00 Yes [id number] Unavailable 80 mg BEDTIME 80 mg BEDTIME (route: oral) Med Classific ation: Cardiovas cular Therapy Agents carvedilol 25 mg tablet 08-29 00:00: 00 Yes [id number] Unavailable 25 mg TWICE DAILY 25 mg TWICE DAILY (route: oral) Med Classific ation: Cardiovas cular Therapy Agents clopidogrel 75 mg tablet 08-29 00:00: 00 Yes [id number] 75 mg EVERY AM 75 mg EVERY AM (route: oral) Med Classific ation: Hematolog ical Agents docusate sodium 100 mg capsule 08-29 00:00: 00 09-25 23:59 :00 No [id number] Unavailable 100 mg TWICE DAILY 100 mg TWICE DAILY (route: oral) Med Classific ation: Gastroint estinal Therapy Agents escitalopra m 20 mg tablet 08-29 00:00: 00 Yes [id number] Unavailable 20 mg EVERY PM 20 mg EVERY PM (route: oral) Med Classific ation: Central Nervous System Agents FeroSul 325 mg (65 mg iron) tablet 08-29 00:00: 00 09-25 23:59 :00 No [id number] Unavailable 325 mg TWICE DAILY IN THE MORNING AND AT BEDTIME 325 mg TWICE DAILY IN THE MORNING AND AT BEDTIME (route: oral) Med Classific ation: Electroly te Balance-N utritiona l Products gabapentin 800 mg tablet 08-29 00:00: 00 09-22 23:59 :00 No [id number] 800 mg 2 TIMES DAILY 800 mg 2 TIMES DAILY (route: oral) Med Classific ation: Central Nervous System Agents hydralazine 25 mg tablet 08-29 00:00: 00 09-22 23:59 :00 No [id number] Unavailable 25 mg 3 TIMES DAILY 25 mg 3 TIMES DAILY (route: oral) Med Classific ation: Cardiovas cular Therapy Agents hydralazine 50 mg tablet 08-29 00:00: 00 09-25 23:59 :00 No [id number] Unavailable 50 mg THREE TIMES DAILY IN THE MORNING AT 50 mg THREE TIMES DAILY IN THE MORNING AT (route: oral) Med Classific ation: Cardiovas cular Therapy Agents mirtazapine 45 mg tablet 08-29 00:00: 00 Yes [id number] Unavailable 45 mg AT BEDTIME 45 mg AT BEDTIME (route: oral) Med Classific ation: Central Nervous System Agents omeprazole 20 mg capsule,del ayed release 08-29 00:00: 00 Yes [id number] 20 mg TWICE DAILY 20 mg TWICE DAILY (route: oral) Med Classific ation: Gastroint estinal Therapy Agents lisinopril 40 mg tablet 09-25 00:00: 00 Yes [id number] 40 mg DAILY 40 mg DAILY (route: oral) Med Classific ation: Cardiovas cular Therapy Agents metformin 1,000 mg tablet 09-25 00:00: 00 09-22 23:59 :00 No [id number] 1000 mg 2 TIMES DAILY 1000 mg 2 TIMES DAILY (route: oral) Med Classific ation: Endocrine multivitami n tablet 09-25 00:00: 00 Yes [id number] 1 tablet DAILY 1 tablet DAILY (route: oral) Med Classific ation: Electroly te Balance-N utritiona l Products nifedipine ER 60 mg tablet,exte nded release 09-25 00:00: 00 Yes [id number] 60 mg EVERY PM 60 mg EVERY PM (route: oral) Med Classific ation: Cardiovas cular Therapy Agents pioglitazon e 15 mg tablet 09-25 00:00: 00 Yes [id number] 15 mg DAILY 15 mg DAILY (route: oral) Med Classific ation: Endocrine Tresiba FlexTouch U-100 insulin 100 unit/mL (3 mL) subcutaneou s pen 09-25 00:00: 00 Yes [id number] 10 In unit DAILY 10 In unit DAILY (route: subcutaneo ) Med Classific ation: Endocrine aspirin 81 mg tablet 09-22 00:00: 00 Yes [id number] 1 tablet DAILY 1 tablet DAILY (route: oral) Med Classific ation: Hematolog ical Agents docusate sodium 100 mg capsule 09-22 00:00: 00 Yes [id number] 1 capsule 2 TIMES DAILY 1 capsule 2 TIMES DAILY (route: oral) Med Classific ation: Gastroint estinal Therapy Agents ferrous sulfate 325 mg (65 mg iron) tablet 09-22 00:00: 00 Yes [id number] 1 tablet 2 TIMES DAILY 1 tablet 2 TIMES DAILY (route: oral) Med Classific ation: Electroly te Balance-N utritiona l Products isosorbide mononitrate ER 30 mg tablet,exte nded release 24 hr 09-22 00:00: 00 Yes [id number] 1 tablet DAILY 1 tablet DAILY (route: [...] AWARENESS FOR SAFETY AND WILL NOTIFY CLINICAL CITY SUPERINTENDENT OF SCHOOLS AND PHYSICIAN/PROVIDER WITH ANY CHANGE IN CONDITION. [code = SKILLED NURSE WILL MAINTAIN SITUATIONAL AWARENESS FOR SAFETY AND WILL NOTIFY CLINICAL [place] SUPERINTENDENT OF SCHOOLS AND PHYSICIAN/PROVIDER WITH ANY CHANGE IN CONDITION.] [...] ATION ERIC EDDY [facility] [id number] 48.39
--- OUTSIDE RECORDS SUMMARY | 2025-01-16 19:00 | XMS_ITS | Clinical Summary ---
Author Organization Unknown Care Team Providers Care Wringer And Setter Name Role Phone ADILIA FELIPE, VIOLETA Unavailable Unavailable SURJIT DAVID, ERIC Unavailable Unavailable Payers Payer Name Policy Type Policy Number Effective Date Expira tion Date MEDICAID [facility] [id number] Problems Condition Name Condition Details Condition Category Status Onset Date Resolution Date Last Treatment Date Treating Clinician Comments ESSENTIAL (PRIMARY) HYPERTENSION Active 09-21 00:00: 00 ATHSCL HEART DISEASE OF [place] CORONARY ARTERY W/O ANG PCTRS Active [...] CIGARETTES, UNCOMPLICATE D Active 09-21 00:00: 00 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 09-21 [...] release 24 hr 805 00:00: 00 Yes [id number] 60 mg AT BEDTIME 60 mg AT BEDTIME (route: oral) Med Classific ation: Cardiovas cular Therapy Agents oxycodone 5 mg tablet 09-04 00:00: 00 11-19 23:59 :00 No [id number] Unavailable 5 mg FIVE TIMES DAILY NEEDED 5 mg FIVE TIMES DAILY NEEDED (route: oral) Med Classific ation: Analgesic , Anti-infl ammatory or Antipyret ic gabapentin 600 mg tablet 09-03 00:00: 00 09-25 23:59 :00 No [id number] 600 mg 2 TIMES DAILY 600 mg 2 TIMES DAILY (route: oral) Med Classific ation: Central Nervous System Agents nicotine 21 mg/24 hr daily transdermal patch 08-30 00:00: 00 Yes [id number] Unavailable 21 mg DAILY 21 mg DAILY (route: transderma l) Med Classific ation: Chemical Dependenc y, Agents to Treat Alcohol Prep Pads 08-29 00:00: 00 05-18 23:59 :00 No [id number] 1 pads, medicat ed DIRECTED THREE TIMES DAILY AND NEEDED 1 pads, medicated DIRECTED THREE TIMES DAILY AND NEEDED (route: topical) Med Classific ation: Antisepti cs and Disinfect ants amitriptyli ne 50 mg tablet 08-29 00:00: 00 09-22 23:59 :00 No [id number] Unavailable 50 mg AT BEDTIME 50 mg AT BEDTIME (route: oral) Med Classific ation: Central Nervous System Agents Asmanex HFA 100 mcg/actuati on aerosol inhaler 08-29 00:00: 00 Yes [id number] 2 puff TWICE DAILY 2 puff TWICE DAILY (route: inhalation ) Med Classific ation: Respirato ry Therapy Agents atorvastati n 80 mg tablet 08-29 00:00: 00 Yes [id number] Unavailable 80 mg BEDTIME 80 mg BEDTIME (route: oral) Med Classific ation: Cardiovas cular Therapy Agents carvedilol 25 mg tablet 08-29 00:00: 00 Yes [id number] Unavailable 25 mg TWICE DAILY 25 mg TWICE DAILY (route: oral) Med Classific ation: Cardiovas cular Therapy Agents clopidogrel 75 mg tablet 08-29 00:00: 00 Yes [id number] 75 mg EVERY AM 75 mg EVERY AM (route: oral) Med Classific ation: Hematolog ical Agents docusate sodium 100 mg capsule 08-29 00:00: 00 09-25 23:59 :00 No [id number] Unavailable 100 mg TWICE DAILY 100 mg TWICE DAILY (route: oral) Med Classific ation: Gastroint estinal Therapy Agents escitalopra m 20 mg tablet 08-29 00:00: 00 Yes [id number] Unavailable 20 mg EVERY PM 20 mg EVERY PM (route: oral) Med Classific ation: Central Nervous System Agents FeroSul 325 mg (65 mg iron) tablet 08-29 00:00: 00 09-25 23:59 :00 No [id number] Unavailable 325 mg TWICE DAILY IN THE MORNING AND AT BEDTIME 325 mg TWICE DAILY IN THE MORNING AND AT BEDTIME (route: oral) Med Classific ation: Electroly te Balance-N utritiona l Products gabapentin 800 mg tablet 08-29 00:00: 00 09-22 23:59 :00 No [id number] 800 mg 2 TIMES DAILY 800 mg 2 TIMES DAILY (route: oral) Med Classific ation: Central Nervous System Agents hydralazine 25 mg tablet 08-29 00:00: 00 09-22 23:59 :00 No [id number] Unavailable 25 mg 3 TIMES DAILY 25 mg 3 TIMES DAILY (route: oral) Med Classific ation: Cardiovas cular Therapy Agents hydralazine 50 mg tablet 08-29 00:00: 00 09-25 23:59 :00 No [id number] Unavailable 50 mg THREE TIMES DAILY IN THE MORNING AT 50 mg THREE TIMES DAILY IN THE MORNING AT (route: oral) Med Classific ation: Cardiovas cular Therapy Agents mirtazapine 45 mg tablet 08-29 00:00: 00 Yes [id number] Unavailable 45 mg AT BEDTIME 45 mg AT BEDTIME (route: oral) Med Classific ation: Central Nervous System Agents omeprazole 20 mg capsule,del ayed release 08-29 00:00: 00 Yes [id number] 20 mg TWICE DAILY 20 mg TWICE DAILY (route: oral) Med Classific ation: Gastroint estinal Therapy Agents lisinopril 40 mg tablet 09-25 00:00: 00 Yes [id number] 40 mg DAILY 40 mg DAILY (route: oral) Med Classific ation: Cardiovas cular Therapy Agents metformin 1,000 mg tablet 09-25 00:00: 00 09-22 23:59 :00 No [id number] 1000 mg 2 TIMES DAILY 1000 mg 2 TIMES DAILY (route: oral) Med Classific ation: Endocrine multivitami n tablet 09-25 00:00: 00 Yes [id number] 1 tablet DAILY 1 tablet DAILY (route: oral) Med Classific ation: Electroly te Balance-N utritiona l Products nifedipine ER 60 mg tablet,exte nded release 09-25 00:00: 00 Yes [id number] 60 mg EVERY PM 60 mg EVERY PM (route: oral) Med Classific ation: Cardiovas cular Therapy Agents pioglitazon e 15 mg tablet 09-25 00:00: 00 Yes [id number] 15 mg DAILY 15 mg DAILY (route: oral) Med Classific ation: Endocrine Tresiba FlexTouch U-100 insulin 100 unit/mL (3 mL) subcutaneou s pen 09-25 00:00: 00 Yes [id number] 10 In unit DAILY 10 In unit DAILY (route: subcutaneo ) Med Classific ation: Endocrine aspirin 81 mg tablet 09-22 00:00: 00 Yes [id number] 1 tablet DAILY 1 tablet DAILY (route: oral) Med Classific ation: Hematolog ical Agents docusate sodium 100 mg capsule 09-22 00:00: 00 Yes [id number] 1 capsule 2 TIMES DAILY 1 capsule 2 TIMES DAILY (route: oral) Med Classific ation: Gastroint estinal Therapy Agents ferrous sulfate 325 mg (65 mg iron) tablet 09-22 00:00: 00 Yes [id number] 1 tablet 2 TIMES DAILY 1 tablet 2 TIMES DAILY (route: oral) Med Classific ation: Electroly te Balance-N utritiona l Products isosorbide mononitrate ER 30 mg tablet,exte nded release 24 hr 09-22 00:00: 00 Yes [id number] 1 tablet DAILY 1 tablet DAILY (route: [...] PRE-POUR MEDICATION PER MEDICATION LIST TILL NEXT JAIL VISIT [code = SKILLED NURSE TO PRE-POUR MEDICATION PER MEDICATION LIST TILL NEXT JAIL VISIT] Future Scheduled Test PATIENT MA Y [...] MEDICATIONS DAILY AND PRE-POUR MEDICATIONS TILL NEXT JAIL VISIT PER MEDICATION LIST. [code = SKILLED NURSE TO ADMINISTER MEDICATIONS DAILY AND PRE-POUR MEDICATIONS TILL NEXT JAIL VISIT PER MEDICATION LIST.] Future Scheduled Test [...] AWARENESS FOR SAFETY AND WILL NOTIFY CLINICAL REPORTER ANCHOR AND PHYSICIAN/PROVIDER WITH ANY CHANGE IN CONDITION. [code = SKILLED NURSE WILL MAINTAIN SITUATIONAL AWARENESS FOR SAFETY AND WILL NOTIFY CLINICAL REPORTER ANCHOR AND PHYSICIAN/PROVIDER WITH ANY CHANGE IN CONDITION.] [...] CARE WILL BE ESTABLISHED THAT MEETS PATIENT'S JAIL NEEDS AND INCLUDES PATIENT GOAL FOR HOME [...] End Date/Time Encounter Type Admission Type Attending [facility] Care Department Encounter ID Discharge Date Discharge Status Discharge Condition Discharge Reason Percent Goals Met 2024-11-19 00:00:00 2025-01-17 00:00:00 Outpatient RECERTIFIC ATION ERIC EDDY [facility] [id number] 48.39
--- OUTSIDE RECORDS SUMMARY | 2025-01-16 19:00 | XMS_ITS | Clinical Summary ---
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 09-21 00:00: [...] release 24 hr 805 00:00: 00 Yes [id number] 60 mg AT BEDTIME 60 mg AT BEDTIME (route: oral) Med Classific ation: Cardiovas cular Therapy Agents oxycodone 5 mg tablet 09-04 00:00: 00 11-19 23:59 :00 No [id number] Unavailable 5 mg FIVE TIMES DAILY NEEDED 5 mg FIVE TIMES DAILY NEEDED (route: oral) Med Classific ation: Analgesic , Anti-infl ammatory or Antipyret ic gabapentin 600 mg tablet 09-03 00:00: 00 09-25 23:59 :00 No [id number] 600 mg 2 TIMES DAILY 600 mg 2 TIMES DAILY (route: oral) Med Classific ation: Central Nervous System Agents nicotine 21 mg/24 hr daily transdermal patch 08-30 00:00: 00 Yes [id number] Unavailable 21 mg DAILY 21 mg DAILY (route: transderma l) Med Classific ation: Chemical Dependenc y, Agents to Treat Alcohol Prep Pads 08-29 00:00: 00 05-18 23:59 :00 No [id number] 1 pads, medicat ed DIRECTED THREE TIMES DAILY AND NEEDED 1 pads, medicated DIRECTED THREE TIMES DAILY AND NEEDED (route: topical) Med Classific ation: Antisepti cs and Disinfect ants amitriptyli ne 50 mg tablet 08-29 00:00: 00 09-22 23:59 :00 No [id number] Unavailable 50 mg AT BEDTIME 50 mg AT BEDTIME (route: oral) Med Classific ation: Central Nervous System Agents Asmanex HFA 100 mcg/actuati on aerosol inhaler 08-29 00:00: 00 Yes [id number] 2 puff TWICE DAILY 2 puff TWICE DAILY (route: inhalation ) Med Classific ation: Respirato ry Therapy Agents atorvastati n 80 mg tablet 08-29 00:00: 00 Yes [id number] Unavailable 80 mg BEDTIME 80 mg BEDTIME (route: oral) Med Classific ation: Cardiovas cular Therapy Agents carvedilol 25 mg tablet 08-29 00:00: 00 Yes [id number] Unavailable 25 mg TWICE DAILY 25 mg TWICE DAILY (route: oral) Med Classific ation: Cardiovas cular Therapy Agents clopidogrel 75 mg tablet 08-29 00:00: 00 Yes [id number] 75 mg EVERY AM 75 mg EVERY AM (route: oral) Med Classific ation: Hematolog ical Agents docusate sodium 100 mg capsule 08-29 00:00: 00 09-25 23:59 :00 No [id number] Unavailable 100 mg TWICE DAILY 100 mg TWICE DAILY (route: oral) Med Classific ation: Gastroint estinal Therapy Agents escitalopra m 20 mg tablet 08-29 00:00: 00 Yes [id number] Unavailable 20 mg EVERY PM 20 mg EVERY PM (route: oral) Med Classific ation: Central Nervous System Agents FeroSul 325 mg (65 mg iron) tablet 08-29 00:00: 00 09-25 23:59 :00 No [id number] Unavailable 325 mg TWICE DAILY IN THE MORNING AND AT BEDTIME 325 mg TWICE DAILY IN THE MORNING AND AT BEDTIME (route: oral) Med Classific ation: Electroly te Balance-N utritiona l Products gabapentin 800 mg tablet 08-29 00:00: 00 09-22 23:59 :00 No [id number] 800 mg 2 TIMES DAILY 800 mg 2 TIMES DAILY (route: oral) Med Classific ation: Central Nervous System Agents hydralazine 25 mg tablet 08-29 00:00: 00 09-22 23:59 :00 No [id number] Unavailable 25 mg 3 TIMES DAILY 25 mg 3 TIMES DAILY (route: oral) Med Classific ation: Cardiovas cular Therapy Agents hydralazine 50 mg tablet 08-29 00:00: 00 09-25 23:59 :00 No [id number] Unavailable 50 mg THREE TIMES DAILY IN THE MORNING AT 50 mg THREE TIMES DAILY IN THE MORNING AT (route: oral) Med Classific ation: Cardiovas cular Therapy Agents mirtazapine 45 mg tablet 08-29 00:00: 00 Yes [id number] Unavailable 45 mg AT BEDTIME 45 mg AT BEDTIME (route: oral) Med Classific ation: Central Nervous System Agents omeprazole 20 mg capsule,del ayed release 08-29 00:00: 00 Yes [id number] 20 mg TWICE DAILY 20 mg TWICE DAILY (route: oral) Med Classific ation: Gastroint estinal Therapy Agents lisinopril 40 mg tablet 09-25 00:00: 00 Yes [id number] 40 mg DAILY 40 mg DAILY (route: oral) Med Classific ation: Cardiovas cular Therapy Agents metformin 1,000 mg tablet 09-25 00:00: 00 09-22 23:59 :00 No [id number] 1000 mg 2 TIMES DAILY 1000 mg 2 TIMES DAILY (route: oral) Med Classific ation: Endocrine multivitami n tablet 09-25 00:00: 00 Yes [id number] 1 tablet DAILY 1 tablet DAILY (route: oral) Med Classific ation: Electroly te Balance-N utritiona l Products nifedipine ER 60 mg tablet,exte nded release 09-25 00:00: 00 Yes [id number] 60 mg EVERY PM 60 mg EVERY PM (route: oral) Med Classific ation: Cardiovas cular Therapy Agents pioglitazon e 15 mg tablet 09-25 00:00: 00 Yes [id number] 15 mg DAILY 15 mg DAILY (route: oral) Med Classific ation: Endocrine Tresiba FlexTouch U-100 insulin 100 unit/mL (3 mL) subcutaneou s pen 09-25 00:00: 00 Yes [id number] 10 In unit DAILY 10 In unit DAILY (route: subcutaneo ) Med Classific ation: Endocrine aspirin 81 mg tablet 09-22 00:00: 00 Yes [id number] 1 tablet DAILY 1 tablet DAILY (route: oral) Med Classific ation: Hematolog ical Agents docusate sodium 100 mg capsule 09-22 00:00: 00 Yes [id number] 1 capsule 2 TIMES DAILY 1 capsule 2 TIMES DAILY (route: oral) Med Classific ation: Gastroint estinal Therapy Agents ferrous sulfate 325 mg (65 mg iron) tablet 09-22 00:00: 00 Yes [id number] 1 tablet 2 TIMES DAILY 1 tablet 2 TIMES DAILY (route: oral) Med Classific ation: Electroly te Balance-N utritiona l Products isosorbide mononitrate ER 30 mg tablet,exte nded release 24 hr 09-22 00:00: 00 Yes [id number] 1 tablet DAILY 1 tablet DAILY (route: [...] AWARENESS FOR SAFETY AND WILL NOTIFY CLINICAL SUMMER CHILD CAREGIVER AND PHYSICIAN/PROVIDER WITH ANY CHANGE IN CONDITION. [code = SKILLED NURSE WILL MAINTAIN SITUATIONAL AWARENESS FOR SAFETY AND WILL NOTIFY CLINICAL SUMMER CHILD CAREGIVER AND PHYSICIAN/PROVIDER WITH ANY CHANGE IN CONDITION.] [...] 2025-01-17 00:00:00 Outpatient RECERTIFIC ATION ERIC EDDY [facility] [id number] 48.39
--- OUTSIDE RECORDS SUMMARY | 2025-01-16 19:00 | XMS_ITS | Clinical Summary ---
Author Organization Unknown Care Team Providers Care Eyeglass Lens Generator Name Role Phone ADILIA FELIPE, VIOLETA Unavailable Unavailable SURJIT DAVID, ERIC Unavailable Unavailable Payers Payer Name Policy Type Policy Number Effective Date Expira tion Date MEDICAID [facility] [id number] Problems Condition Name Condition Details Condition Category Status Onset Date Resolution Date Last Treatment Date Treating Clinician Comments ESSENTIAL (PRIMARY) HYPERTENSION Active 09-21 00:00: 00 ATHSCL HEART DISEASE OF [place] CORONARY ARTERY W/O ANG PCTRS Active 09-21 [...] CIGARETTES, UNCOMPLICATE D Active 09-21 00:00: 00 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 09-21 [...] release 24 hr 805 00:00: 00 Yes [id number] 60 mg AT BEDTIME 60 mg AT BEDTIME (route: oral) Med Classific ation: Cardiovas cular Therapy Agents oxycodone 5 mg tablet 09-04 00:00: 00 11-19 23:59 :00 No [id number] Unavailable 5 mg FIVE TIMES DAILY NEEDED 5 mg FIVE TIMES DAILY NEEDED (route: oral) Med Classific ation: Analgesic , Anti-infl ammatory or Antipyret ic gabapentin 600 mg tablet 09-03 00:00: 00 09-25 23:59 :00 No [id number] 600 mg 2 TIMES DAILY 600 mg 2 TIMES DAILY (route: oral) Med Classific ation: Central Nervous System Agents nicotine 21 mg/24 hr daily transdermal patch 08-30 00:00: 00 Yes [id number] Unavailable 21 mg DAILY 21 mg DAILY (route: transderma l) Med Classific ation: Chemical Dependenc y, Agents to Treat Alcohol Prep Pads 08-29 00:00: 00 05-18 23:59 :00 No [id number] 1 pads, medicat ed DIRECTED THREE TIMES DAILY AND NEEDED 1 pads, medicated DIRECTED THREE TIMES DAILY AND NEEDED (route: topical) Med Classific ation: Antisepti cs and Disinfect ants amitriptyli ne 50 mg tablet 08-29 00:00: 00 09-22 23:59 :00 No [id number] Unavailable 50 mg AT BEDTIME 50 mg AT BEDTIME (route: oral) Med Classific ation: Central Nervous System Agents Asmanex HFA 100 mcg/actuati on aerosol inhaler 08-29 00:00: 00 Yes [id number] 2 puff TWICE DAILY 2 puff TWICE DAILY (route: inhalation ) Med Classific ation: Respirato ry Therapy Agents atorvastati n 80 mg tablet 08-29 00:00: 00 Yes [id number] Unavailable 80 mg BEDTIME 80 mg BEDTIME (route: oral) Med Classific ation: Cardiovas cular Therapy Agents carvedilol 25 mg tablet 08-29 00:00: 00 Yes [id number] Unavailable 25 mg TWICE DAILY 25 mg TWICE DAILY (route: oral) Med Classific ation: Cardiovas cular Therapy Agents clopidogrel 75 mg tablet 08-29 00:00: 00 Yes [id number] 75 mg EVERY AM 75 mg EVERY AM (route: oral) Med Classific ation: Hematolog ical Agents docusate sodium 100 mg capsule 08-29 00:00: 00 09-25 23:59 :00 No [id number] Unavailable 100 mg TWICE DAILY 100 mg TWICE DAILY (route: oral) Med Classific ation: Gastroint estinal Therapy Agents escitalopra m 20 mg tablet 08-29 00:00: 00 Yes [id number] Unavailable 20 mg EVERY PM 20 mg EVERY PM (route: oral) Med Classific ation: Central Nervous System Agents FeroSul 325 mg (65 mg iron) tablet 08-29 00:00: 00 09-25 23:59 :00 No [id number] Unavailable 325 mg TWICE DAILY IN THE MORNING AND AT BEDTIME 325 mg TWICE DAILY IN THE MORNING AND AT BEDTIME (route: oral) Med Classific ation: Electroly te Balance-N utritiona l Products gabapentin 800 mg tablet 08-29 00:00: 00 09-22 23:59 :00 No [id number] 800 mg 2 TIMES DAILY 800 mg 2 TIMES DAILY (route: oral) Med Classific ation: Central Nervous System Agents hydralazine 25 mg tablet 08-29 00:00: 00 09-22 23:59 :00 No [id number] Unavailable 25 mg 3 TIMES DAILY 25 mg 3 TIMES DAILY (route: oral) Med Classific ation: Cardiovas cular Therapy Agents hydralazine 50 mg tablet 08-29 00:00: 00 09-25 23:59 :00 No [id number] Unavailable 50 mg THREE TIMES DAILY IN THE MORNING AT 50 mg THREE TIMES DAILY IN THE MORNING AT (route: oral) Med Classific ation: Cardiovas cular Therapy Agents mirtazapine 45 mg tablet 08-29 00:00: 00 Yes [id number] Unavailable 45 mg AT BEDTIME 45 mg AT BEDTIME (route: oral) Med Classific ation: Central Nervous System Agents omeprazole 20 mg capsule,del ayed release 08-29 00:00: 00 Yes [id number] 20 mg TWICE DAILY 20 mg TWICE DAILY (route: oral) Med Classific ation: Gastroint estinal Therapy Agents lisinopril 40 mg tablet 09-25 00:00: 00 Yes [id number] 40 mg DAILY 40 mg DAILY (route: oral) Med Classific ation: Cardiovas cular Therapy Agents metformin 1,000 mg tablet 09-25 00:00: 00 09-22 23:59 :00 No [id number] 1000 mg 2 TIMES DAILY 1000 mg 2 TIMES DAILY (route: oral) Med Classific ation: Endocrine multivitami n tablet 09-25 00:00: 00 Yes [id number] 1 tablet DAILY 1 tablet DAILY (route: oral) Med Classific ation: Electroly te Balance-N utritiona l Products nifedipine ER 60 mg tablet,exte nded release 09-25 00:00: 00 Yes [id number] 60 mg EVERY PM 60 mg EVERY PM (route: oral) Med Classific ation: Cardiovas cular Therapy Agents pioglitazon e 15 mg tablet 09-25 00:00: 00 Yes [id number] 15 mg DAILY 15 mg DAILY (route: oral) Med Classific ation: Endocrine Tresiba FlexTouch U-100 insulin 100 unit/mL (3 mL) subcutaneou s pen 09-25 00:00: 00 Yes [id number] 10 In unit DAILY 10 In unit DAILY (route: subcutaneo ) Med Classific ation: Endocrine aspirin 81 mg tablet 09-22 00:00: 00 Yes [id number] 1 tablet DAILY 1 tablet DAILY (route: oral) Med Classific ation: Hematolog ical Agents docusate sodium 100 mg capsule 09-22 00:00: 00 Yes [id number] 1 capsule 2 TIMES DAILY 1 capsule 2 TIMES DAILY (route: oral) Med Classific ation: Gastroint estinal Therapy Agents ferrous sulfate 325 mg (65 mg iron) tablet 09-22 00:00: 00 Yes [id number] 1 tablet 2 TIMES DAILY 1 tablet 2 TIMES DAILY (route: oral) Med Classific ation: Electroly te Balance-N utritiona l Products isosorbide mononitrate ER 30 mg tablet,exte nded release 24 hr 09-22 00:00: 00 Yes [id number] 1 tablet DAILY 1 tablet DAILY (route: [...] AWARENESS FOR SAFETY AND WILL NOTIFY CLINICAL INSTRUCTIONAL TECHNOLOGIST AND PHYSICIAN/PROVIDER WITH ANY CHANGE IN CONDITION. [code = SKILLED NURSE WILL MAINTAIN SITUATIONAL AWARENESS FOR SAFETY AND WILL NOTIFY CLINICAL INSTRUCTIONAL TECHNOLOGIST AND PHYSICIAN/PROVIDER WITH ANY CHANGE IN CONDITION.] [...] End Date/Time Encounter Type Admission Type Attending [facility] Care Department Encounter ID Discharge Date Discharge Status Discharge Condition Discharge Reason Percent Goals Met 2024-11-19 00:00:00 2025-01-17 00:00:00 Outpatient RECERTIFIC ATION ERIC [facility] [id number] 48.39
--- OUTSIDE RECORDS SUMMARY | 2025-01-16 19:00 | XMS_ITS | Clinical Summary ---
Author Organization Unknown Care Team Providers Care Clothing Patternmaker Name Role Phone ADILIA FELIPE, VIOLETA Unavailable Unavailable SURJIT DAVID, ERIC Unavailable Unavailable Payers Payer Name Policy Type Policy Number Effective Date Expira tion Date MEDICAID [facility] [id number] Problems Condition Name Condition Details Condition Category Status Onset Date Resolution Date Last Treatment Date Treating Clinician Comments ESSENTIAL (PRIMARY) HYPERTENSION Active 09-21 00:00: 00 ATHSCL HEART DISEASE OF [place] CORONARY ARTERY W/O ANG PCTRS Active 09-21 [...] CIGARETTES, UNCOMPLICATE D Active 09-21 00:00: 00 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 09-21 00:00: [...] release 24 hr 805 00:00: 00 Yes [id number] 60 mg AT BEDTIME 60 mg AT BEDTIME (route: oral) Med Classific ation: Cardiovas cular Therapy Agents oxycodone 5 mg tablet 09-04 00:00: 00 11-19 23:59 :00 No [id number] Unavailable 5 mg FIVE TIMES DAILY NEEDED 5 mg FIVE TIMES DAILY NEEDED (route: oral) Med Classific ation: Analgesic , Anti-infl ammatory or Antipyret ic gabapentin 600 mg tablet 09-03 00:00: 00 09-25 23:59 :00 No [id number] 600 mg 2 TIMES DAILY 600 mg 2 TIMES DAILY (route: oral) Med Classific ation: Central Nervous System Agents nicotine 21 mg/24 hr daily transdermal patch 08-30 00:00: 00 Yes [id number] Unavailable 21 mg DAILY 21 mg DAILY (route: transderma l) Med Classific ation: Chemical Dependenc y, Agents to Treat Alcohol Prep Pads 08-29 00:00: 00 05-18 23:59 :00 No [id number] 1 pads, medicat ed DIRECTED THREE TIMES DAILY AND NEEDED 1 pads, medicated DIRECTED THREE TIMES DAILY AND NEEDED (route: topical) Med Classific ation: Antisepti cs and Disinfect ants amitriptyli ne 50 mg tablet 08-29 00:00: 00 09-22 23:59 :00 No [id number] Unavailable 50 mg AT BEDTIME 50 mg AT BEDTIME (route: oral) Med Classific ation: Central Nervous System Agents Asmanex HFA 100 mcg/actuati on aerosol inhaler 08-29 00:00: 00 Yes [id number] 2 puff TWICE DAILY 2 puff TWICE DAILY (route: inhalation ) Med Classific ation: Respirato ry Therapy Agents atorvastati n 80 mg tablet 08-29 00:00: 00 Yes [id number] Unavailable 80 mg BEDTIME 80 mg BEDTIME (route: oral) Med Classific ation: Cardiovas cular Therapy Agents carvedilol 25 mg tablet 08-29 00:00: 00 Yes [id number] Unavailable 25 mg TWICE DAILY 25 mg TWICE DAILY (route: oral) Med Classific ation: Cardiovas cular Therapy Agents clopidogrel 75 mg tablet 08-29 00:00: 00 Yes [id number] 75 mg EVERY AM 75 mg EVERY AM (route: oral) Med Classific ation: Hematolog ical Agents docusate sodium 100 mg capsule 08-29 00:00: 00 09-25 23:59 :00 No [id number] Unavailable 100 mg TWICE DAILY 100 mg TWICE DAILY (route: oral) Med Classific ation: Gastroint estinal Therapy Agents escitalopra m 20 mg tablet 08-29 00:00: 00 Yes [id number] Unavailable 20 mg EVERY PM 20 mg EVERY PM (route: oral) Med Classific ation: Central Nervous System Agents FeroSul 325 mg (65 mg iron) tablet 08-29 00:00: 00 09-25 23:59 :00 No [id number] Unavailable 325 mg TWICE DAILY IN THE MORNING AND AT BEDTIME 325 mg TWICE DAILY IN THE MORNING AND AT BEDTIME (route: oral) Med Classific ation: Electroly te Balance-N utritiona l Products gabapentin 800 mg tablet 08-29 00:00: 00 09-22 23:59 :00 No [id number] 800 mg 2 TIMES DAILY 800 mg 2 TIMES DAILY (route: oral) Med Classific ation: Central Nervous System Agents hydralazine 25 mg tablet 08-29 00:00: 00 09-22 23:59 :00 No [id number] Unavailable 25 mg 3 TIMES DAILY 25 mg 3 TIMES DAILY (route: oral) Med Classific ation: Cardiovas cular Therapy Agents hydralazine 50 mg tablet 08-29 00:00: 00 09-25 23:59 :00 No [id number] Unavailable 50 mg THREE TIMES DAILY IN THE MORNING AT 50 mg THREE TIMES DAILY IN THE MORNING AT (route: oral) Med Classific ation: Cardiovas cular Therapy Agents mirtazapine 45 mg tablet 08-29 00:00: 00 Yes [id number] Unavailable 45 mg AT BEDTIME 45 mg AT BEDTIME (route: oral) Med Classific ation: Central Nervous System Agents omeprazole 20 mg capsule,del ayed release 08-29 00:00: 00 Yes [id number] 20 mg TWICE DAILY 20 mg TWICE DAILY (route: oral) Med Classific ation: Gastroint estinal Therapy Agents lisinopril 40 mg tablet 09-25 00:00: 00 Yes [id number] 40 mg DAILY 40 mg DAILY (route: oral) Med Classific ation: Cardiovas cular Therapy Agents metformin 1,000 mg tablet 09-25 00:00: 00 09-22 23:59 :00 No [id number] 1000 mg 2 TIMES DAILY 1000 mg 2 TIMES DAILY (route: oral) Med Classific ation: Endocrine multivitami n tablet 09-25 00:00: 00 Yes [id number] 1 tablet DAILY 1 tablet DAILY (route: oral) Med Classific ation: Electroly te Balance-N utritiona l Products nifedipine ER 60 mg tablet,exte nded release 09-25 00:00: 00 Yes [id number] 60 mg EVERY PM 60 mg EVERY PM (route: oral) Med Classific ation: Cardiovas cular Therapy Agents pioglitazon e 15 mg tablet 09-25 00:00: 00 Yes [id number] 15 mg DAILY 15 mg DAILY (route: oral) Med Classific ation: Endocrine Tresiba FlexTouch U-100 insulin 100 unit/mL (3 mL) subcutaneou s pen 09-25 00:00: 00 Yes [id number] 10 In unit DAILY 10 In unit DAILY (route: subcutaneo ) Med Classific ation: Endocrine aspirin 81 mg tablet 09-22 00:00: 00 Yes [id number] 1 tablet DAILY 1 tablet DAILY (route: oral) Med Classific ation: Hematolog ical Agents docusate sodium 100 mg capsule 09-22 00:00: 00 Yes [id number] 1 capsule 2 TIMES DAILY 1 capsule 2 TIMES DAILY (route: oral) Med Classific ation: Gastroint estinal Therapy Agents ferrous sulfate 325 mg (65 mg iron) tablet 09-22 00:00: 00 Yes [id number] 1 tablet 2 TIMES DAILY 1 tablet 2 TIMES DAILY (route: oral) Med Classific ation: Electroly te Balance-N utritiona l Products isosorbide mononitrate ER 30 mg tablet,exte nded release 24 hr 09-22 00:00: 00 Yes [id number] 1 tablet DAILY 1 tablet DAILY (route: [...] AWARENESS FOR SAFETY AND WILL NOTIFY CLINICAL EMBROIDERY PATTERNMAKER AND PHYSICIAN/PROVIDER WITH ANY CHANGE IN CONDITION. [code = SKILLED NURSE WILL MAINTAIN SITUATIONAL AWARENESS FOR SAFETY AND WILL NOTIFY CLINICAL EMBROIDERY PATTERNMAKER AND PHYSICIAN/PROVIDER WITH ANY CHANGE IN CONDITION.] [...] ATION ERIC [facility] [id number] 48.39
--- OUTSIDE RECORDS SUMMARY | 2025-01-16 19:00 | XMS_ITS | Clinical Summary ---
Author Organization Unknown Care Team Providers Care Brake Reliner Name Role Phone ADILIA FELIPE, VIOLETA Unavailable Unavailable SURJIT DAVID, ERIC Unavailable Unavailable Payers Payer Name Policy Type Policy Number Effective Date Expira tion Date MEDICAID [facility] [id number] Problems Condition Name Condition Details Condition Category Status Onset Date Resolution Date Last Treatment Date Treating Clinician Comments ESSENTIAL (PRIMARY) HYPERTENSION Active 09-21 00:00: 00 ATHSCL HEART DISEASE OF [place] CORONARY ARTERY W/O ANG PCTRS Active 09-21 [...] CIGARETTES, UNCOMPLICATE D Active 09-21 00:00: 00 SOAP GRINDER (CURRENT) USE OF INSULIN Active 09-21 00:00: [...] release 24 hr 805 00:00: 00 Yes [id number] 60 mg AT BEDTIME 60 mg AT BEDTIME (route: oral) Med Classific ation: Cardiovas cular Therapy Agents oxycodone 5 mg tablet 09-04 00:00: 00 11-19 23:59 :00 No [id number] Unavailable 5 mg FIVE TIMES DAILY NEEDED 5 mg FIVE TIMES DAILY NEEDED (route: oral) Med Classific ation: Analgesic , Anti-infl ammatory or Antipyret ic gabapentin 600 mg tablet 09-03 00:00: 00 09-25 23:59 :00 No [id number] 600 mg 2 TIMES DAILY 600 mg 2 TIMES DAILY (route: oral) Med Classific ation: Central Nervous System Agents nicotine 21 mg/24 hr daily transdermal patch 08-30 00:00: 00 Yes [id number] Unavailable 21 mg DAILY 21 mg DAILY (route: transderma l) Med Classific ation: Chemical Dependenc y, Agents to Treat Alcohol Prep Pads 08-29 00:00: 00 05-18 23:59 :00 No [id number] 1 pads, medicat ed DIRECTED THREE TIMES DAILY AND NEEDED 1 pads, medicated DIRECTED THREE TIMES DAILY AND NEEDED (route: topical) Med Classific ation: Antisepti cs and Disinfect ants amitriptyli ne 50 mg tablet 08-29 00:00: 00 09-22 23:59 :00 No [id number] Unavailable 50 mg AT BEDTIME 50 mg AT BEDTIME (route: oral) Med Classific ation: Central Nervous System Agents Asmanex HFA 100 mcg/actuati on aerosol inhaler 08-29 00:00: 00 Yes [id number] 2 puff TWICE DAILY 2 puff TWICE DAILY (route: inhalation ) Med Classific ation: Respirato ry Therapy Agents atorvastati n 80 mg tablet 08-29 00:00: 00 Yes [id number] Unavailable 80 mg BEDTIME 80 mg BEDTIME (route: oral) Med Classific ation: Cardiovas cular Therapy Agents carvedilol 25 mg tablet 08-29 00:00: 00 Yes [id number] Unavailable 25 mg TWICE DAILY 25 mg TWICE DAILY (route: oral) Med Classific ation: Cardiovas cular Therapy Agents clopidogrel 75 mg tablet 08-29 00:00: 00 Yes [id number] 75 mg EVERY AM 75 mg EVERY AM (route: oral) Med Classific ation: Hematolog ical Agents docusate sodium 100 mg capsule 08-29 00:00: 00 09-25 23:59 :00 No [id number] Unavailable 100 mg TWICE DAILY 100 mg TWICE DAILY (route: oral) Med Classific ation: Gastroint estinal Therapy Agents escitalopra m 20 mg tablet 08-29 00:00: 00 Yes [id number] Unavailable 20 mg EVERY PM 20 mg EVERY PM (route: oral) Med Classific ation: Central Nervous System Agents FeroSul 325 mg (65 mg iron) tablet 08-29 00:00: 00 09-25 23:59 :00 No [id number] Unavailable 325 mg TWICE DAILY IN THE MORNING AND AT BEDTIME 325 mg TWICE DAILY IN THE MORNING AND AT BEDTIME (route: oral) Med Classific ation: Electroly te Balance-N utritiona l Products gabapentin 800 mg tablet 08-29 00:00: 00 09-22 23:59 :00 No [id number] 800 mg 2 TIMES DAILY 800 mg 2 TIMES DAILY (route: oral) Med Classific ation: Central Nervous System Agents hydralazine 25 mg tablet 08-29 00:00: 00 09-22 23:59 :00 No [id number] Unavailable 25 mg 3 TIMES DAILY 25 mg 3 TIMES DAILY (route: oral) Med Classific ation: Cardiovas cular Therapy Agents hydralazine 50 mg tablet 08-29 00:00: 00 09-25 23:59 :00 No [id number] Unavailable 50 mg THREE TIMES DAILY IN THE MORNING AT 50 mg THREE TIMES DAILY IN THE MORNING AT (route: oral) Med Classific ation: Cardiovas cular Therapy Agents mirtazapine 45 mg tablet 08-29 00:00: 00 Yes [id number] Unavailable 45 mg AT BEDTIME 45 mg AT BEDTIME (route: oral) Med Classific ation: Central Nervous System Agents omeprazole 20 mg capsule,del ayed release 08-29 00:00: 00 Yes [id number] 20 mg TWICE DAILY 20 mg TWICE DAILY (route: oral) Med Classific ation: Gastroint estinal Therapy Agents lisinopril 40 mg tablet 09-25 00:00: 00 Yes [id number] 40 mg DAILY 40 mg DAILY (route: oral) Med Classific ation: Cardiovas cular Therapy Agents metformin 1,000 mg tablet 09-25 00:00: 00 09-22 23:59 :00 No [id number] 1000 mg 2 TIMES DAILY 1000 mg 2 TIMES DAILY (route: oral) Med Classific ation: Endocrine multivitami n tablet 09-25 00:00: 00 Yes [id number] 1 tablet DAILY 1 tablet DAILY (route: oral) Med Classific ation: Electroly te Balance-N utritiona l Products nifedipine ER 60 mg tablet,exte nded release 09-25 00:00: 00 Yes [id number] 60 mg EVERY PM 60 mg EVERY PM (route: oral) Med Classific ation: Cardiovas cular Therapy Agents pioglitazon e 15 mg tablet 09-25 00:00: 00 Yes [id number] 15 mg DAILY 15 mg DAILY (route: oral) Med Classific ation: Endocrine Tresiba FlexTouch U-100 insulin 100 unit/mL (3 mL) subcutaneou s pen 09-25 00:00: 00 Yes [id number] 10 In unit DAILY 10 In unit DAILY (route: subcutaneo ) Med Classific ation: Endocrine aspirin 81 mg tablet 09-22 00:00: 00 Yes [id number] 1 tablet DAILY 1 tablet DAILY (route: oral) Med Classific ation: Hematolog ical Agents docusate sodium 100 mg capsule 09-22 00:00: 00 Yes [id number] 1 capsule 2 TIMES DAILY 1 capsule 2 TIMES DAILY (route: oral) Med Classific ation: Gastroint estinal Therapy Agents ferrous sulfate 325 mg (65 mg iron) tablet 09-22 00:00: 00 Yes [id number] 1 tablet 2 TIMES DAILY 1 tablet 2 TIMES DAILY (route: oral) Med Classific ation: Electroly te Balance-N utritiona l Products isosorbide mononitrate ER 30 mg tablet,exte nded release 24 hr 09-22 00:00: 00 Yes [id number] 1 tablet DAILY 1 tablet DAILY (route: [...] AWARENESS FOR SAFETY AND WILL NOTIFY CLINICAL MEDICAL TECH AND PHYSICIAN/PROVIDER WITH ANY CHANGE IN CONDITION. [code = SKILLED NURSE WILL MAINTAIN SITUATIONAL AWARENESS FOR SAFETY AND WILL NOTIFY CLINICAL MEDICAL TECH AND PHYSICIAN/PROVIDER WITH ANY CHANGE IN CONDITION.] [...] RECERTIFIC ATION ERIC EDDY [facility] [id number] 48.39
--- OUTSIDE RECORDS SUMMARY | 2025-01-16 19:00 | XMS_ITS | Clinical Summary ---
Author Organization Unknown Care Team Providers Care Prop And Scenery Maker Name Role Phone ADILIA FELIPE, VIOLETA Unavailable Unavailable SURJIT DAVID, ERIC Unavailable Unavailable Payers Payer Name Policy Type Policy Number Effective Date Expira tion Date MEDICAID [facility] [id number] Problems Condition Name Condition Details Condition Category Status Onset Date Resolution Date Last Treatment Date Treating Clinician Comments ESSENTIAL (PRIMARY) HYPERTENSION Active 09-21 00:00: 00 ATHSCL HEART DISEASE OF [place] CORONARY ARTERY W/O ANG PCTRS Active 09-21 [...] CIGARETTES, UNCOMPLICATE D Active 09-21 00:00: 00 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 (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) USE OF INSULIN Active 09-21 00:00: [...] release 24 hr 805 00:00: 00 Yes [id number] 60 mg AT BEDTIME 60 mg AT BEDTIME (route: oral) Med Classific ation: Cardiovas cular Therapy Agents oxycodone 5 mg tablet 09-04 00:00: 00 11-19 23:59 :00 No [id number] Unavailable 5 mg FIVE TIMES DAILY NEEDED 5 mg FIVE TIMES DAILY NEEDED (route: oral) Med Classific ation: Analgesic , Anti-infl ammatory or Antipyret ic gabapentin 600 mg tablet 09-03 00:00: 00 09-25 23:59 :00 No [id number] 600 mg 2 TIMES DAILY 600 mg 2 TIMES DAILY (route: oral) Med Classific ation: Central Nervous System Agents nicotine 21 mg/24 hr daily transdermal patch 08-30 00:00: 00 Yes [id number] Unavailable 21 mg DAILY 21 mg DAILY (route: transderma l) Med Classific ation: Chemical Dependenc y, Agents to Treat Alcohol Prep Pads 08-29 00:00: 00 05-18 23:59 :00 No [id number] 1 pads, medicat ed DIRECTED THREE TIMES DAILY AND NEEDED 1 pads, medicated DIRECTED THREE TIMES DAILY AND NEEDED (route: topical) Med Classific ation: Antisepti cs and Disinfect ants amitriptyli ne 50 mg tablet 08-29 00:00: 00 09-22 23:59 :00 No [id number] Unavailable 50 mg AT BEDTIME 50 mg AT BEDTIME (route: oral) Med Classific ation: Central Nervous System Agents Asmanex HFA 100 mcg/actuati on aerosol inhaler 08-29 00:00: 00 Yes [id number] 2 puff TWICE DAILY 2 puff TWICE DAILY (route: inhalation ) Med Classific ation: Respirato ry Therapy Agents atorvastati n 80 mg tablet 08-29 00:00: 00 Yes [id number] Unavailable 80 mg BEDTIME 80 mg BEDTIME (route: oral) Med Classific ation: Cardiovas cular Therapy Agents carvedilol 25 mg tablet 08-29 00:00: 00 Yes [id number] Unavailable 25 mg TWICE DAILY 25 mg TWICE DAILY (route: oral) Med Classific ation: Cardiovas cular Therapy Agents clopidogrel 75 mg tablet 08-29 00:00: 00 Yes [id number] 75 mg EVERY AM 75 mg EVERY AM (route: oral) Med Classific ation: Hematolog ical Agents docusate sodium 100 mg capsule 08-29 00:00: 00 09-25 23:59 :00 No [id number] Unavailable 100 mg TWICE DAILY 100 mg TWICE DAILY (route: oral) Med Classific ation: Gastroint estinal Therapy Agents escitalopra m 20 mg tablet 08-29 00:00: 00 Yes [id number] Unavailable 20 mg EVERY PM 20 mg EVERY PM (route: oral) Med Classific ation: Central Nervous System Agents FeroSul 325 mg (65 mg iron) tablet 08-29 00:00: 00 09-25 23:59 :00 No [id number] Unavailable 325 mg TWICE DAILY IN THE MORNING AND AT BEDTIME 325 mg TWICE DAILY IN THE MORNING AND AT BEDTIME (route: oral) Med Classific ation: Electroly te Balance-N utritiona l Products gabapentin 800 mg tablet 08-29 00:00: 00 09-22 23:59 :00 No [id number] 800 mg 2 TIMES DAILY 800 mg 2 TIMES DAILY (route: oral) Med Classific ation: Central Nervous System Agents hydralazine 25 mg tablet 08-29 00:00: 00 09-22 23:59 :00 No [id number] Unavailable 25 mg 3 TIMES DAILY 25 mg 3 TIMES DAILY (route: oral) Med Classific ation: Cardiovas cular Therapy Agents hydralazine 50 mg tablet 08-29 00:00: 00 09-25 23:59 :00 No [id number] Unavailable 50 mg THREE TIMES DAILY IN THE MORNING AT 50 mg THREE TIMES DAILY IN THE MORNING AT (route: oral) Med Classific ation: Cardiovas cular Therapy Agents mirtazapine 45 mg tablet 08-29 00:00: 00 Yes [id number] Unavailable 45 mg AT BEDTIME 45 mg AT BEDTIME (route: oral) Med Classific ation: Central Nervous System Agents omeprazole 20 mg capsule,del ayed release 08-29 00:00: 00 Yes [id number] 20 mg TWICE DAILY 20 mg TWICE DAILY (route: oral) Med Classific ation: Gastroint estinal Therapy Agents lisinopril 40 mg tablet 09-25 00:00: 00 Yes [id number] 40 mg DAILY 40 mg DAILY (route: oral) Med Classific ation: Cardiovas cular Therapy Agents metformin 1,000 mg tablet 09-25 00:00: 00 09-22 23:59 :00 No [id number] 1000 mg 2 TIMES DAILY 1000 mg 2 TIMES DAILY (route: oral) Med Classific ation: Endocrine multivitami n tablet 09-25 00:00: 00 Yes [id number] 1 tablet DAILY 1 tablet DAILY (route: oral) Med Classific ation: Electroly te Balance-N utritiona l Products nifedipine ER 60 mg tablet,exte nded release 09-25 00:00: 00 Yes [id number] 60 mg EVERY PM 60 mg EVERY PM (route: oral) Med Classific ation: Cardiovas cular Therapy Agents pioglitazon e 15 mg tablet 09-25 00:00: 00 Yes [id number] 15 mg DAILY 15 mg DAILY (route: oral) Med Classific ation: Endocrine Tresiba FlexTouch U-100 insulin 100 unit/mL (3 mL) subcutaneou s pen 09-25 00:00: 00 Yes [id number] In unit DAILY 10 In unit DAILY (route: subcutaneo ) Med Classific ation: Endocrine aspirin 81 mg tablet 09-22 00:00: 00 Yes [id number] 1 tablet DAILY 1 tablet DAILY (route: oral) Med Classific ation: Hematolog ical Agents docusate sodium 100 mg capsule 09-22 00:00: 00 Yes [id number] 1 capsule 2 TIMES DAILY 1 capsule 2 TIMES DAILY (route: oral) Med Classific ation: Gastroint estinal Therapy Agents ferrous sulfate 325 mg (65 mg iron) tablet 09-22 00:00: 00 Yes [id number] 1 tablet 2 TIMES DAILY 1 tablet 2 TIMES DAILY (route: oral) Med Classific ation: Electroly te Balance-N utritiona l Products isosorbide mononitrate ER 30 mg tablet,exte nded release 24 hr 09-22 00:00: 00 Yes [id number] 1 tablet DAILY 1 tablet DAILY (route: [...] AWARENESS FOR SAFETY AND WILL NOTIFY CLINICAL CAREER COACH AND PHYSICIAN/PROVIDER WITH ANY CHANGE IN CONDITION. [code = SKILLED NURSE WILL MAINTAIN SITUATIONAL AWARENESS FOR SAFETY AND WILL NOTIFY CLINICAL CAREER COACH AND PHYSICIAN/PROVIDER WITH ANY CHANGE IN CONDITION.] [...] End Date/Time Encounter Type Admission Type Attending [facility] Care Department Encounter ID Discharge Date Discharge Status Discharge Condition Discharge Reason Percent Goals Met 2024-11-19 00:00:00 2025-01-17 00:00:00 Outpatient RECERTIFIC ATION ERIC EDDY [facility] [id number] 48.39
--- OUTSIDE RECORDS SUMMARY | 2025-01-16 19:00 | XMS_ITS | Clinical Summary ---
Author Organization Unknown Care Team Providers Care It Service Continuity Supervisor Name Role Phone ADILIA FELIPE, VIOLETA Unavailable Unavailable SURJIT DAVID, ERIC Unavailable Unavailable Payers Payer Name Policy Type Policy Number Effective Date Expira tion Date MEDICAID [facility] [id number] Problems Condition Name Condition Details Condition Category Status Onset Date Resolution Date Last Treatment Date Treating Clinician Comments ESSENTIAL (PRIMARY) HYPERTENSION Active 09-21 00:00: 00 ATHSCL HEART DISEASE OF [place] CORONARY ARTERY W/O ANG PCTRS Active 09-21 [...] UNCOMPLICATE D Active 09-21 00:00: 00 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 09-21 00:00: [...] release 24 hr 805 00:00: 00 Yes [id number] 60 mg AT BEDTIME 60 mg AT BEDTIME (route: oral) Med Classific ation: Cardiovas cular Therapy Agents oxycodone 5 mg tablet 09-04 00:00: 00 11-19 23:59 :00 No [id number] Unavailable 5 mg FIVE TIMES DAILY NEEDED 5 mg FIVE TIMES DAILY NEEDED (route: oral) Med Classific ation: Analgesic , Anti-infl ammatory or Antipyret ic gabapentin 600 mg tablet 09-03 00:00: 00 09-25 23:59 :00 No [id number] 600 mg 2 TIMES DAILY 600 mg 2 TIMES DAILY (route: oral) Med Classific ation: Central Nervous System Agents nicotine 21 mg/24 hr daily transdermal patch 08-30 00:00: 00 Yes [id number] Unavailable 21 mg DAILY 21 mg DAILY (route: transderma l) Med Classific ation: Chemical Dependenc y, Agents to Treat Alcohol Prep Pads 08-29 00:00: 00 05-18 23:59 :00 No [id number] 1 pads, medicat ed DIRECTED THREE TIMES DAILY AND NEEDED 1 pads, medicated DIRECTED THREE TIMES DAILY AND NEEDED (route: topical) Med Classific ation: Antisepti cs and Disinfect ants amitriptyli ne 50 mg tablet 08-29 00:00: 00 09-22 23:59 :00 No [id number] Unavailable 50 mg AT BEDTIME 50 mg AT BEDTIME (route: oral) Med Classific ation: Central Nervous System Agents Asmanex HFA 100 mcg/actuati on aerosol inhaler 08-29 00:00: 00 Yes [id number] 2 puff TWICE DAILY 2 puff TWICE DAILY (route: inhalation ) Med Classific ation: Respirato ry Therapy Agents atorvastati n 80 mg tablet 08-29 00:00: 00 Yes [id number] Unavailable 80 mg BEDTIME 80 mg BEDTIME (route: oral) Med Classific ation: Cardiovas cular Therapy Agents carvedilol 25 mg tablet 08-29 00:00: 00 Yes [id number] Unavailable 25 mg TWICE DAILY 25 mg TWICE DAILY (route: oral) Med Classific ation: Cardiovas cular Therapy Agents clopidogrel 75 mg tablet 08-29 00:00: 00 Yes [id number] 75 mg EVERY AM 75 mg EVERY AM (route: oral) Med Classific ation: Hematolog ical Agents docusate sodium 100 mg capsule 08-29 00:00: 00 09-25 23:59 :00 No [id number] Unavailable 100 mg TWICE DAILY 100 mg TWICE DAILY (route: oral) Med Classific ation: Gastroint estinal Therapy Agents escitalopra m 20 mg tablet 08-29 00:00: 00 Yes [id number] Unavailable 20 mg EVERY PM 20 mg EVERY PM (route: oral) Med Classific ation: Central Nervous System Agents FeroSul 325 mg (65 mg iron) tablet 08-29 00:00: 00 09-25 23:59 :00 No [id number] Unavailable 325 mg TWICE DAILY IN THE MORNING AND AT BEDTIME 325 mg TWICE DAILY IN THE MORNING AND AT BEDTIME (route: oral) Med Classific ation: Electroly te Balance-N utritiona l Products gabapentin 800 mg tablet 08-29 00:00: 00 09-22 23:59 :00 No [id number] 800 mg 2 TIMES DAILY 800 mg 2 TIMES DAILY (route: oral) Med Classific ation: Central Nervous System Agents hydralazine 25 mg tablet 08-29 00:00: 00 09-22 23:59 :00 No [id number] Unavailable 25 mg 3 TIMES DAILY 25 mg 3 TIMES DAILY (route: oral) Med Classific ation: Cardiovas cular Therapy Agents hydralazine 50 mg tablet 08-29 00:00: 00 09-25 23:59 :00 No [id number] Unavailable 50 mg THREE TIMES DAILY IN THE MORNING AT 50 mg THREE TIMES DAILY IN THE MORNING AT (route: oral) Med Classific ation: Cardiovas cular Therapy Agents mirtazapine 45 mg tablet 08-29 00:00: 00 Yes [id number] Unavailable 45 mg AT BEDTIME 45 mg AT BEDTIME (route: oral) Med Classific ation: Central Nervous System Agents omeprazole 20 mg capsule,del ayed release 08-29 00:00: 00 Yes [id number] 20 mg TWICE DAILY 20 mg TWICE DAILY (route: oral) Med Classific ation: Gastroint estinal Therapy Agents lisinopril 40 mg tablet 09-25 00:00: 00 Yes [id number] 40 mg DAILY 40 mg DAILY (route: oral) Med Classific ation: Cardiovas cular Therapy Agents metformin 1,000 mg tablet 09-25 00:00: 00 09-22 23:59 :00 No [id number] 1000 mg 2 TIMES DAILY 1000 mg 2 TIMES DAILY (route: oral) Med Classific ation: Endocrine multivitami n tablet 09-25 00:00: 00 Yes [id number] 1 tablet DAILY 1 tablet DAILY (route: oral) Med Classific ation: Electroly te Balance-N utritiona l Products nifedipine ER 60 mg tablet,exte nded release 09-25 00:00: 00 Yes [id number] 60 mg EVERY PM 60 mg EVERY PM (route: oral) Med Classific ation: Cardiovas cular Therapy Agents pioglitazon e 15 mg tablet 09-25 00:00: 00 Yes [id number] 15 mg DAILY 15 mg DAILY (route: oral) Med Classific ation: Endocrine Tresiba FlexTouch U-100 insulin 100 unit/mL (3 mL) subcutaneou s pen 09-25 00:00: 00 Yes [id number] 10 In unit DAILY 10 In unit DAILY (route: subcutaneo ) Med Classific ation: Endocrine aspirin 81 mg tablet 09-22 00:00: 00 Yes [id number] 1 tablet DAILY 1 tablet DAILY (route: oral) Med Classific ation: Hematolog ical Agents docusate sodium 100 mg capsule 09-22 00:00: 00 Yes [id number] 1 capsule 2 TIMES DAILY 1 capsule 2 TIMES DAILY (route: oral) Med Classific ation: Gastroint estinal Therapy Agents ferrous sulfate 325 mg (65 mg iron) tablet 09-22 00:00: 00 Yes [id number] 1 tablet 2 TIMES DAILY 1 tablet 2 TIMES DAILY (route: oral) Med Classific ation: Electroly te Balance-N utritiona l Products isosorbide mononitrate ER 30 mg tablet,exte nded release 24 hr 09-22 00:00: 00 Yes [id number] 1 tablet DAILY 1 tablet DAILY (route: [...] AWARENESS FOR SAFETY AND WILL NOTIFY CLINICAL CUTTER MACHINE AND PHYSICIAN/PROVIDER WITH ANY CHANGE IN CONDITION. [code = SKILLED NURSE WILL MAINTAIN SITUATIONAL AWARENESS FOR SAFETY AND WILL NOTIFY CLINICAL CUTTER MACHINE AND PHYSICIAN/PROVIDER WITH ANY CHANGE IN CONDITION.] [...] End Date/Time Encounter Type Admission Type Attending [facility] Care Department Encounter ID Discharge Date Discharge Status Discharge Condition Discharge Reason Percent Goals Met 2024-11-19 00:00:00 2025-01-17 00:00:00 Outpatient RECERTIFIC ATION ERIC EDDY [facility] [id number] 48.39
--- OUTSIDE RECORDS SUMMARY | 2025-01-16 19:00 | XMS_ITS | Clinical Summary ---
Author Organization Unknown Care Team Providers Care System Administration Manager Name Role Phone ADILIA FELIPE, VIOLETA Unavailable Unavailable SURJIT DAVID, ERIC Unavailable Unavailable Payers Payer Name Policy Type Policy Number Effective Date Expira tion Date MEDICAID [facility] [id number] Problems Condition Name Condition Details Condition Category Status Onset Date Resolution Date Last Treatment Date Treating Clinician Comments ESSENTIAL (PRIMARY) HYPERTENSION Active 09-21 00:00: 00 ATHSCL HEART DISEASE OF [place] CORONARY ARTERY W/O ANG PCTRS Active [...] CIGARETTES, UNCOMPLICATE D Active 09-21 00:00: 00 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 09-21 00:00: [...] release 24 hr 805 00:00: 00 Yes [id number] 60 mg AT BEDTIME 60 mg AT BEDTIME (route: oral) Med Classific ation: Cardiovas cular Therapy Agents oxycodone 5 mg tablet 09-04 00:00: 00 11-19 23:59 :00 No [id number] Unavailable 5 mg FIVE TIMES DAILY NEEDED 5 mg FIVE TIMES DAILY NEEDED (route: oral) Med Classific ation: Analgesic , Anti-infl ammatory or Antipyret ic gabapentin 600 mg tablet 09-03 00:00: 00 09-25 23:59 :00 No [id number] 600 mg 2 TIMES DAILY 600 mg 2 TIMES DAILY (route: oral) Med Classific ation: Central Nervous System Agents nicotine 21 mg/24 hr daily transdermal patch 08-30 00:00: 00 Yes [id number] Unavailable 21 mg DAILY 21 mg DAILY (route: transderma l) Med Classific ation: Chemical Dependenc y, Agents to Treat Alcohol Prep Pads 08-29 00:00: 00 05-18 23:59 :00 No [id number] 1 pads, medicat ed DIRECTED THREE TIMES DAILY AND NEEDED 1 pads, medicated DIRECTED THREE TIMES DAILY AND NEEDED (route: topical) Med Classific ation: Antisepti cs and Disinfect ants amitriptyli ne 50 mg tablet 08-29 00:00: 00 09-22 23:59 :00 No [id number] Unavailable 50 mg AT BEDTIME 50 mg AT BEDTIME (route: oral) Med Classific ation: Central Nervous System Agents Asmanex HFA 100 mcg/actuati on aerosol inhaler 08-29 00:00: 00 Yes [id number] 2 puff TWICE DAILY 2 puff TWICE DAILY (route: inhalation ) Med Classific ation: Respirato ry Therapy Agents atorvastati n 80 mg tablet 08-29 00:00: 00 Yes [id number] Unavailable 80 mg BEDTIME 80 mg BEDTIME (route: oral) Med Classific ation: Cardiovas cular Therapy Agents carvedilol 25 mg tablet 08-29 00:00: 00 Yes [id number] Unavailable 25 mg TWICE DAILY 25 mg TWICE DAILY (route: oral) Med Classific ation: Cardiovas cular Therapy Agents clopidogrel 75 mg tablet 08-29 00:00: 00 Yes [id number] 75 mg EVERY AM 75 mg EVERY AM (route: oral) Med Classific ation: Hematolog ical Agents docusate sodium 100 mg capsule 08-29 00:00: 00 09-25 23:59 :00 No [id number] Unavailable 100 mg TWICE DAILY 100 mg TWICE DAILY (route: oral) Med Classific ation: Gastroint estinal Therapy Agents escitalopra m 20 mg tablet 08-29 00:00: 00 Yes [id number] Unavailable 20 mg EVERY PM 20 mg EVERY PM (route: oral) Med Classific ation: Central Nervous System Agents FeroSul 325 mg (65 mg iron) tablet 08-29 00:00: 00 09-25 23:59 :00 No [id number] Unavailable 325 mg TWICE DAILY IN THE MORNING AND AT BEDTIME 325 mg TWICE DAILY IN THE MORNING AND AT BEDTIME (route: oral) Med Classific ation: Electroly te Balance-N utritiona l Products gabapentin 800 mg tablet 08-29 00:00: 00 09-22 23:59 :00 No [id number] 800 mg 2 TIMES DAILY 800 mg 2 TIMES DAILY (route: oral) Med Classific ation: Central Nervous System Agents hydralazine 25 mg tablet 08-29 00:00: 00 09-22 23:59 :00 No [id number] Unavailable 25 mg 3 TIMES DAILY 25 mg 3 TIMES DAILY (route: oral) Med Classific ation: Cardiovas cular Therapy Agents hydralazine 50 mg tablet 08-29 00:00: 00 09-25 23:59 :00 No [id number] Unavailable 50 mg THREE TIMES DAILY IN THE MORNING AT 50 mg THREE TIMES DAILY IN THE MORNING AT (route: oral) Med Classific ation: Cardiovas cular Therapy Agents mirtazapine 45 mg tablet 08-29 00:00: 00 Yes [id number] Unavailable 45 mg AT BEDTIME 45 mg AT BEDTIME (route: oral) Med Classific ation: Central Nervous System Agents omeprazole 20 mg capsule,del ayed release 08-29 00:00: 00 Yes [id number] 20 mg TWICE DAILY 20 mg TWICE DAILY (route: oral) Med Classific ation: Gastroint estinal Therapy Agents lisinopril 40 mg tablet 09-25 00:00: 00 Yes [id number] 40 mg DAILY 40 mg DAILY (route: oral) Med Classific ation: Cardiovas cular Therapy Agents metformin 1,000 mg tablet 09-25 00:00: 00 09-22 23:59 :00 No [id number] 1000 mg 2 TIMES DAILY 1000 mg 2 TIMES DAILY (route: oral) Med Classific ation: Endocrine multivitami n tablet 09-25 00:00: 00 Yes [id number] 1 tablet DAILY 1 tablet DAILY (route: oral) Med Classific ation: Electroly te Balance-N utritiona l Products nifedipine ER 60 mg tablet,exte nded release 09-25 00:00: 00 Yes [id number] 60 mg EVERY PM 60 mg EVERY PM (route: oral) Med Classific ation: Cardiovas cular Therapy Agents pioglitazon e 15 mg tablet 09-25 00:00: 00 Yes [id number] 15 mg DAILY 15 mg DAILY (route: oral) Med Classific ation: Endocrine Tresiba FlexTouch U-100 insulin 100 unit/mL (3 mL) subcutaneou s pen 09-25 00:00: 00 Yes [id number] 10 In unit DAILY 10 In unit DAILY (route: subcutaneo ) Med Classific ation: Endocrine aspirin 81 mg tablet 09-22 00:00: 00 Yes [id number] 1 tablet DAILY 1 tablet DAILY (route: oral) Med Classific ation: Hematolog ical Agents docusate sodium 100 mg capsule 09-22 00:00: 00 Yes [id number] 1 capsule 2 TIMES DAILY 1 capsule 2 TIMES DAILY (route: oral) Med Classific ation: Gastroint estinal Therapy Agents ferrous sulfate 325 mg (65 mg iron) tablet 09-22 00:00: 00 Yes [id number] 1 tablet 2 TIMES DAILY 1 tablet 2 TIMES DAILY (route: oral) Med Classific ation: Electroly te Balance-N utritiona l Products isosorbide mononitrate ER 30 mg tablet,exte nded release 24 hr 09-22 00:00: 00 Yes [id number] 1 tablet DAILY 1 tablet DAILY (route: [...] AWARENESS FOR SAFETY AND WILL NOTIFY CLINICAL SPORTS MANAGER AND PHYSICIAN/PROVIDER WITH ANY CHANGE IN CONDITION. [code = SKILLED NURSE WILL MAINTAIN SITUATIONAL AWARENESS FOR SAFETY AND WILL NOTIFY CLINICAL SPORTS MANAGER AND PHYSICIAN/PROVIDER WITH ANY CHANGE IN [...] ATION ERIC EDDY [facility] [id number] 48.39
--- OUTSIDE RECORDS SUMMARY | 2025-01-16 19:00 | XMS_ITS | Clinical Summary ---
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 09-21 00:00: 00 CUSTODIAL (CURRENT) USE OF ANTITHROMBOT ICS/ANTIPLAT ELETS Active [...] release 24 hr 805 00:00: 00 Yes [id number] 60 mg AT BEDTIME 60 mg AT BEDTIME (route: oral) Med Classific ation: Cardiovas cular Therapy Agents oxycodone 5 mg tablet 09-04 00:00: 00 11-19 23:59 :00 No [id number] Unavailable 5 mg FIVE TIMES DAILY NEEDED 5 mg FIVE TIMES DAILY NEEDED (route: oral) Med Classific ation: Analgesic , Anti-infl ammatory or Antipyret ic gabapentin 600 mg tablet 09-03 00:00: 00 09-25 23:59 :00 No [id number] 600 mg 2 TIMES DAILY 600 mg 2 TIMES DAILY (route: oral) Med Classific ation: Central Nervous System Agents nicotine 21 mg/24 hr daily transdermal patch 08-30 00:00: 00 Yes [id number] Unavailable 21 mg DAILY 21 mg DAILY (route: transderma l) Med Classific ation: Chemical Dependenc y, Agents to Treat Alcohol Prep Pads 08-29 00:00: 00 05-18 23:59 :00 No [id number] 1 pads, medicat ed DIRECTED THREE TIMES DAILY AND NEEDED 1 pads, medicated DIRECTED THREE TIMES DAILY AND NEEDED (route: topical) Med Classific ation: Antisepti cs and Disinfect ants amitriptyli ne 50 mg tablet 08-29 00:00: 00 09-22 23:59 :00 No [id number] Unavailable 50 mg AT BEDTIME 50 mg AT BEDTIME (route: oral) Med Classific ation: Central Nervous System Agents Asmanex HFA 100 mcg/actuati on aerosol inhaler 08-29 00:00: 00 Yes [id number] 2 puff TWICE DAILY 2 puff TWICE DAILY (route: inhalation ) Med Classific ation: Respirato ry Therapy Agents atorvastati n 80 mg tablet 08-29 00:00: 00 Yes [id number] Unavailable 80 mg BEDTIME 80 mg BEDTIME (route: oral) Med Classific ation: Cardiovas cular Therapy Agents carvedilol 25 mg tablet 08-29 00:00: 00 Yes [id number] Unavailable 25 mg TWICE DAILY 25 mg TWICE DAILY (route: oral) Med Classific ation: Cardiovas cular Therapy Agents clopidogrel 75 mg tablet 08-29 00:00: 00 Yes [id number] 75 mg EVERY AM 75 mg EVERY AM (route: oral) Med Classific ation: Hematolog ical Agents docusate sodium 100 mg capsule 08-29 00:00: 00 09-25 23:59 :00 No [id number] Unavailable 100 mg TWICE DAILY 100 mg TWICE DAILY (route: oral) Med Classific ation: Gastroint estinal Therapy Agents escitalopra m 20 mg tablet 08-29 00:00: 00 Yes [id number] Unavailable 20 mg EVERY PM 20 mg EVERY PM (route: oral) Med Classific ation: Central Nervous System Agents FeroSul 325 mg (65 mg iron) tablet 08-29 00:00: 00 09-25 23:59 :00 No [id number] Unavailable 325 mg TWICE DAILY IN THE MORNING AND AT BEDTIME 325 mg TWICE DAILY IN THE MORNING AND AT BEDTIME (route: oral) Med Classific ation: Electroly te Balance-N utritiona l Products gabapentin 800 mg tablet 08-29 00:00: 00 09-22 23:59 :00 No [id number] 800 mg 2 TIMES DAILY 800 mg 2 TIMES DAILY (route: oral) Med Classific ation: Central Nervous System Agents hydralazine 25 mg tablet 08-29 00:00: 00 09-22 23:59 :00 No [id number] Unavailable 25 mg 3 TIMES DAILY 25 mg 3 TIMES DAILY (route: oral) Med Classific ation: Cardiovas cular Therapy Agents hydralazine 50 mg tablet 08-29 00:00: 00 09-25 23:59 :00 No [id number] Unavailable 50 mg THREE TIMES DAILY IN THE MORNING AT 50 mg THREE TIMES DAILY IN THE MORNING AT (route: oral) Med Classific ation: Cardiovas cular Therapy Agents mirtazapine 45 mg tablet 08-29 00:00: 00 Yes [id number] Unavailable 45 mg AT BEDTIME 45 mg AT BEDTIME (route: oral) Med Classific ation: Central Nervous System Agents omeprazole 20 mg capsule,del ayed release 08-29 00:00: 00 Yes [id number] 20 mg TWICE DAILY 20 mg TWICE DAILY (route: oral) Med Classific ation: Gastroint estinal Therapy Agents lisinopril 40 mg tablet 09-25 00:00: 00 Yes [id number] 40 mg DAILY 40 mg DAILY (route: oral) Med Classific ation: Cardiovas cular Therapy Agents metformin 1,000 mg tablet 09-25 00:00: 00 09-22 23:59 :00 No [id number] 1000 mg 2 TIMES DAILY 1000 mg 2 TIMES DAILY (route: oral) Med Classific ation: Endocrine multivitami n tablet 09-25 00:00: 00 Yes [id number] 1 tablet DAILY 1 tablet DAILY (route: oral) Med Classific ation: Electroly te Balance-N utritiona l Products nifedipine ER 60 mg tablet,exte nded release 09-25 00:00: 00 Yes [id number] 60 mg EVERY PM 60 mg EVERY PM (route: oral) Med Classific ation: Cardiovas cular Therapy Agents pioglitazon e 15 mg tablet 09-25 00:00: 00 Yes [id number] 15 mg DAILY 15 mg DAILY (route: oral) Med Classific ation: Endocrine Tresiba FlexTouch U-100 insulin 100 unit/mL (3 mL) subcutaneou s pen 09-25 00:00: 00 Yes [id number] 10 In unit DAILY 10 In unit DAILY (route: subcutaneo ) Med Classific ation: Endocrine aspirin 81 mg tablet 09-22 00:00: 00 Yes [id number] 1 tablet DAILY 1 tablet DAILY (route: oral) Med Classific ation: Hematolog ical Agents docusate sodium 100 mg capsule 09-22 00:00: 00 Yes [id number] 1 capsule 2 TIMES DAILY 1 capsule 2 TIMES DAILY (route: oral) Med Classific ation: Gastroint estinal Therapy Agents ferrous sulfate 325 mg (65 mg iron) tablet 09-22 00:00: 00 Yes [id number] 1 tablet 2 TIMES DAILY 1 tablet 2 TIMES DAILY (route: oral) Med Classific ation: Electroly te Balance-N utritiona l Products isosorbide mononitrate ER 30 mg tablet,exte nded release 24 hr 09-22 00:00: 00 Yes [id number] 1 tablet DAILY 1 tablet DAILY (route: [...] AWARENESS FOR SAFETY AND WILL NOTIFY CLINICAL ORIENTAL RUG REPAIRER AND PHYSICIAN/PROVIDER WITH ANY CHANGE IN CONDITION. [code = SKILLED NURSE WILL MAINTAIN SITUATIONAL AWARENESS FOR SAFETY AND WILL NOTIFY CLINICAL ORIENTAL RUG REPAIRER AND PHYSICIAN/PROVIDER WITH ANY CHANGE IN CONDITION.] [...] 00:00:00 Outpatient RECERTIFIC ATION ERIC EDDY [facility] [id number] 48.39
--- OUTSIDE RECORDS SUMMARY | 2025-01-16 19:00 | XMS_ITS | Clinical Summary ---
Author Organization Unknown Care Team Providers Care Clothes Presser Name Role Phone ADLIIA FELIPE, VIOLETA Unavailable Unavailable SURJIT DAVID, ERIC Unavailable Unavailable Payers Payer Name Policy Type Policy Number Effective Date Expira tion Date MEDICAID [facility] [id number] Problems Condition Name Condition Details Condition Category Status Onset Date Resolution Date Last Treatment Date Treating Clinician Comments ESSENTIAL (PRIMARY) HYPERTENSION Active 09-21 00:00: 00 ATHSCL HEART DISEASE OF [place] CORONARY ARTERY W/O ANG PCTRS Active 09-21 [...] CIGARETTES, UNCOMPLICATE D Active 09-21 00:00: 00 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 09-21 [...] release 24 hr 805 00:00: 00 Yes [id number] 60 mg AT BEDTIME 60 mg AT BEDTIME (route: oral) Med Classific ation: Cardiovas cular Therapy Agents oxycodone 5 mg tablet 09-04 00:00: 00 11-19 23:59 :00 No [id number] Unavailable 5 mg FIVE TIMES DAILY NEEDED 5 mg FIVE TIMES DAILY NEEDED (route: oral) Med Classific ation: Analgesic , Anti-infl ammatory or Antipyret ic gabapentin 600 mg tablet 09-03 00:00: 00 09-25 23:59 :00 No [id number] 600 mg 2 TIMES DAILY 600 mg 2 TIMES DAILY (route: oral) Med Classific ation: Central Nervous System Agents nicotine 21 mg/24 hr daily transdermal patch 08-30 00:00: 00 Yes [id number] Unavailable 21 mg DAILY 21 mg DAILY (route: transderma l) Med Classific ation: Chemical Dependenc y, Agents to Treat Alcohol Prep Pads 08-29 00:00: 00 05-18 23:59 :00 No [id number] 1 pads, medicat ed DIRECTED THREE TIMES DAILY AND NEEDED 1 pads, medicated DIRECTED THREE TIMES DAILY AND NEEDED (route: topical) Med Classific ation: Antisepti cs and Disinfect ants amitriptyli ne 50 mg tablet 08-29 00:00: 00 09-22 23:59 :00 No [id number] Unavailable 50 mg AT BEDTIME 50 mg AT BEDTIME (route: oral) Med Classific ation: Central Nervous System Agents Asmanex HFA 100 mcg/actuati on aerosol inhaler 08-29 00:00: 00 Yes [id number] 2 puff TWICE DAILY 2 puff TWICE DAILY (route: inhalation ) Med Classific ation: Respirato ry Therapy Agents atorvastati n 80 mg tablet 08-29 00:00: 00 Yes [id number] Unavailable 80 mg BEDTIME 80 mg BEDTIME (route: oral) Med Classific ation: Cardiovas cular Therapy Agents carvedilol 25 mg tablet 08-29 00:00: 00 Yes [id number] Unavailable 25 mg TWICE DAILY 25 mg TWICE DAILY (route: oral) Med Classific ation: Cardiovas cular Therapy Agents clopidogrel 75 mg tablet 08-29 00:00: 00 Yes [id number] 75 mg EVERY AM 75 mg EVERY AM (route: oral) Med Classific ation: Hematolog ical Agents docusate sodium 100 mg capsule 08-29 00:00: 00 09-25 23:59 :00 No [id number] Unavailable 100 mg TWICE DAILY 100 mg TWICE DAILY (route: oral) Med Classific ation: Gastroint estinal Therapy Agents escitalopra m 20 mg tablet 08-29 00:00: 00 Yes [id number] Unavailable 20 mg EVERY PM 20 mg EVERY PM (route: oral) Med Classific ation: Central Nervous System Agents FeroSul 325 mg (65 mg iron) tablet 08-29 00:00: 00 09-25 23:59 :00 No [id number] Unavailable 325 mg TWICE DAILY IN THE MORNING AND AT BEDTIME 325 mg TWICE DAILY IN THE MORNING AND AT BEDTIME (route: oral) Med Classific ation: Electroly te Balance-N utritiona l Products gabapentin 800 mg tablet 08-29 00:00: 00 09-22 23:59 :00 No [id number] 800 mg 2 TIMES DAILY 800 mg 2 TIMES DAILY (route: oral) Med Classific ation: Central Nervous System Agents hydralazine 25 mg tablet 08-29 00:00: 00 09-22 23:59 :00 No [id number] Unavailable 25 mg 3 TIMES DAILY 25 mg 3 TIMES DAILY (route: oral) Med Classific ation: Cardiovas cular Therapy Agents hydralazine 50 mg tablet 08-29 00:00: 00 09-25 23:59 :00 No [id number] Unavailable 50 mg THREE TIMES DAILY IN THE MORNING AT 50 mg THREE TIMES DAILY IN THE MORNING AT (route: oral) Med Classific ation: Cardiovas cular Therapy Agents mirtazapine 45 mg tablet 08-29 00:00: 00 Yes [id number] Unavailable 45 mg AT BEDTIME 45 mg AT BEDTIME (route: oral) Med Classific ation: Central Nervous System Agents omeprazole 20 mg capsule,del ayed release 08-29 00:00: 00 Yes [id number] 20 mg TWICE DAILY 20 mg TWICE DAILY (route: oral) Med Classific ation: Gastroint estinal Therapy Agents lisinopril 40 mg tablet 09-25 00:00: 00 Yes [id number] 40 mg DAILY 40 mg DAILY (route: oral) Med Classific ation: Cardiovas cular Therapy Agents metformin 1,000 mg tablet 09-25 00:00: 00 09-22 23:59 :00 No [id number] 1000 mg 2 TIMES DAILY 1000 mg 2 TIMES DAILY (route: oral) Med Classific ation: Endocrine multivitami n tablet 09-25 00:00: 00 Yes [id number] 1 tablet DAILY 1 tablet DAILY (route: oral) Med Classific ation: Electroly te Balance-N utritiona l Products nifedipine ER 60 mg tablet,exte nded release 09-25 00:00: 00 Yes [id number] 60 mg EVERY PM 60 mg EVERY PM (route: oral) Med Classific ation: Cardiovas cular Therapy Agents pioglitazon e 15 mg tablet 09-25 00:00: 00 Yes [id number] 15 mg DAILY 15 mg DAILY (route: oral) Med Classific ation: Endocrine Tresiba FlexTouch U-100 insulin 100 unit/mL (3 mL) subcutaneou s pen 09-25 00:00: 00 Yes [id number] 10 In unit DAILY 10 In unit DAILY (route: subcutaneo ) Med Classific ation: Endocrine aspirin 81 mg tablet 09-22 00:00: 00 Yes [id number] 1 tablet DAILY 1 tablet DAILY (route: oral) Med Classific ation: Hematolog ical Agents docusate sodium 100 mg capsule 09-22 00:00: 00 Yes [id number] 1 capsule 2 TIMES DAILY 1 capsule 2 TIMES DAILY (route: oral) Med Classific ation: Gastroint estinal Therapy Agents ferrous sulfate 325 mg (65 mg iron) tablet 09-22 00:00: 00 Yes [id number] 1 tablet 2 TIMES DAILY 1 tablet 2 TIMES DAILY (route: oral) Med Classific ation: Electroly te Balance-N utritiona l Products isosorbide mononitrate ER 30 mg tablet,exte nded release 24 hr 09-22 00:00: 00 Yes [id number] 1 tablet DAILY 1 tablet DAILY (route: [...] AWARENESS FOR SAFETY AND WILL NOTIFY CLINICAL ELECTRICAL EQUIPMENT TESTER AND PHYSICIAN/PROVIDER WITH ANY CHANGE IN CONDITION. [code = SKILLED NURSE WILL MAINTAIN SITUATIONAL AWARENESS FOR SAFETY AND WILL NOTIFY CLINICAL ELECTRICAL EQUIPMENT TESTER AND PHYSICIAN/PROVIDER WITH ANY CHANGE IN CONDITION.] [...] End Date/Time Encounter Type Admission Type Attending [facility] Care Department Encounter ID Discharge Date Discharge Status Discharge Condition Discharge Reason Percent Goals Met 2024-11-19 00:00:00 2025-01-17 00:00:00 Outpatient RECERTIFIC ATION ERIC EDDY [facility] [id number] 48.39
--- OUTSIDE RECORDS SUMMARY | 2025-01-16 19:00 | XMS_ITS | Clinical Summary ---
Author Organization Unknown Care Team Providers Care Audio Visual Aids Director Name Role Phone ADILIA FELIPE, VIOLETA Unavailable Unavailable SURJIT DAVID, ERIC Unavailable Unavailable Payers Payer Name Policy Type Policy Number Effective Date Expira tion Date MEDICAID 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 09-21 00:00: [...] release 24 hr 805 00:00: 00 Yes [id number] 60 mg AT BEDTIME 60 mg AT BEDTIME (route: oral) Med Classific ation: Cardiovas cular Therapy Agents oxycodone 5 mg tablet 09-04 00:00: 00 11-19 23:59 :00 No [id number] Unavailable 5 mg FIVE TIMES DAILY NEEDED 5 mg FIVE TIMES DAILY NEEDED (route: oral) Med Classific ation: Analgesic , Anti-infl ammatory or Antipyret ic gabapentin 600 mg tablet 09-03 00:00: 00 09-25 23:59 :00 No [id number] 600 mg 2 TIMES DAILY 600 mg 2 TIMES DAILY (route: oral) Med Classific ation: Central Nervous System Agents nicotine 21 mg/24 hr daily transdermal patch 08-30 00:00: 00 Yes [id number] Unavailable 21 mg DAILY 21 mg DAILY (route: transderma l) Med Classific ation: Chemical Dependenc y, Agents to Treat Alcohol Prep Pads 08-29 00:00: 00 05-18 23:59 :00 No [id number] 1 pads, medicat ed DIRECTED THREE TIMES DAILY AND NEEDED 1 pads, medicated DIRECTED THREE TIMES DAILY AND NEEDED (route: topical) Med Classific ation: Antisepti cs and Disinfect ants amitriptyli ne 50 mg tablet 08-29 00:00: 00 09-22 23:59 :00 No [id number] Unavailable 50 mg AT BEDTIME 50 mg AT BEDTIME (route: oral) Med Classific ation: Central Nervous System Agents Asmanex HFA 100 mcg/actuati on aerosol inhaler 08-29 00:00: 00 Yes [id number] 2 puff TWICE DAILY 2 puff TWICE DAILY (route: inhalation ) Med Classific ation: Respirato ry Therapy Agents atorvastati n 80 mg tablet 08-29 00:00: 00 Yes [id number] Unavailable 80 mg BEDTIME 80 mg BEDTIME (route: oral) Med Classific ation: Cardiovas cular Therapy Agents carvedilol 25 mg tablet 08-29 00:00: 00 Yes [id number] Unavailable 25 mg TWICE DAILY 25 mg TWICE DAILY (route: oral) Med Classific ation: Cardiovas cular Therapy Agents clopidogrel 75 mg tablet 08-29 00:00: 00 Yes [id number] 75 mg EVERY AM 75 mg EVERY AM (route: oral) Med Classific ation: Hematolog ical Agents docusate sodium 100 mg capsule 08-29 00:00: 00 09-25 23:59 :00 No [id number] Unavailable 100 mg TWICE DAILY 100 mg TWICE DAILY (route: oral) Med Classific ation: Gastroint estinal Therapy Agents escitalopra m 20 mg tablet 08-29 00:00: 00 Yes [id number] Unavailable 20 mg EVERY PM 20 mg EVERY PM (route: oral) Med Classific ation: Central Nervous System Agents FeroSul 325 mg (65 mg iron) tablet 08-29 00:00: 00 09-25 23:59 :00 No [id number] Unavailable 325 mg TWICE DAILY IN THE MORNING AND AT BEDTIME 325 mg TWICE DAILY IN THE MORNING AND AT BEDTIME (route: oral) Med Classific ation: Electroly te Balance-N utritiona l Products gabapentin 800 mg tablet 08-29 00:00: 00 09-22 23:59 :00 No [id number] 800 mg 2 TIMES DAILY 800 mg 2 TIMES DAILY (route: oral) Med Classific ation: Central Nervous System Agents hydralazine 25 mg tablet 08-29 00:00: 00 09-22 23:59 :00 No [id number] Unavailable 25 mg 3 TIMES DAILY 25 mg 3 TIMES DAILY (route: oral) Med Classific ation: Cardiovas cular Therapy Agents hydralazine 50 mg tablet 08-29 00:00: 00 09-25 23:59 :00 No [id number] Unavailable 50 mg THREE TIMES DAILY IN THE MORNING AT 50 mg THREE TIMES DAILY IN THE MORNING AT (route: oral) Med Classific ation: Cardiovas cular Therapy Agents mirtazapine 45 mg tablet 08-29 00:00: 00 Yes [id number] Unavailable 45 mg AT BEDTIME 45 mg AT BEDTIME (route: oral) Med Classific ation: Central Nervous System Agents omeprazole 20 mg capsule,del ayed release 08-29 00:00: 00 Yes [id number] 20 mg TWICE DAILY 20 mg TWICE DAILY (route: oral) Med Classific ation: Gastroint estinal Therapy Agents lisinopril 40 mg tablet 09-25 00:00: 00 Yes [id number] 40 mg DAILY 40 mg DAILY (route: oral) Med Classific ation: Cardiovas cular Therapy Agents metformin 1,000 mg tablet 09-25 00:00: 00 09-22 23:59 :00 No [id number] 1000 mg 2 TIMES DAILY 1000 mg 2 TIMES DAILY (route: oral) Med Classific ation: Endocrine multivitami n tablet 09-25 00:00: 00 Yes [id number] 1 tablet DAILY 1 tablet DAILY (route: oral) Med Classific ation: Electroly te Balance-N utritiona l Products nifedipine ER 60 mg tablet,exte nded release 09-25 00:00: 00 Yes [id number] 60 mg EVERY PM 60 mg EVERY PM (route: oral) Med Classific ation: Cardiovas cular Therapy Agents pioglitazon e 15 mg tablet 09-25 00:00: 00 Yes [id number] 15 mg DAILY 15 mg DAILY (route: oral) Med Classific ation: Endocrine Tresiba FlexTouch U-100 insulin 100 unit/mL (3 mL) subcutaneou s pen 09-25 00:00: 00 Yes [id number] 10 In unit DAILY 10 In unit DAILY (route: subcutaneo ) Med Classific ation: Endocrine aspirin 81 mg tablet 09-22 00:00: 00 Yes [id number] 1 tablet DAILY 1 tablet DAILY (route: oral) Med Classific ation: Hematolog ical Agents docusate sodium 100 mg capsule 09-22 00:00: 00 Yes [id number] 1 capsule 2 TIMES DAILY 1 capsule 2 TIMES DAILY (route: oral) Med Classific ation: Gastroint estinal Therapy Agents ferrous sulfate 325 mg (65 mg iron) tablet 09-22 00:00: 00 Yes [id number] 1 tablet 2 TIMES DAILY 1 tablet 2 TIMES DAILY (route: oral) Med Classific ation: Electroly te Balance-N utritiona l Products isosorbide mononitrate ER 30 mg tablet,exte nded release 24 hr 09-22 00:00: 00 Yes [id number] 1 tablet DAILY 1 tablet DAILY (route: [...] AWARENESS FOR SAFETY AND WILL NOTIFY CLINICAL CRIMINOLOGY PROFESSOR AND PHYSICIAN/PROVIDER WITH ANY CHANGE IN CONDITION. [code = SKILLED NURSE WILL MAINTAIN SITUATIONAL AWARENESS FOR SAFETY AND WILL NOTIFY CLINICAL CRIMINOLOGY PROFESSOR AND PHYSICIAN/PROVIDER WITH ANY CHANGE IN [...] Date/Time Encounter Type Admission Type Attending [facility] Care Department Encounter ID Discharge Date Discharge Status Discharge Condition Discharge Reason Percent Goals Met 2024-11-19 00:00:00 2025-01-17 00:00:00 Outpatient RECERTIFIC ATION ERIC EDDY [facility] [id number] 48.39
--- OUTSIDE RECORDS SUMMARY | 2025-01-16 19:00 | XMS_ITS | Clinical Summary ---
Author Organization Unknown Care Team Providers Care Endoscopy Technician Name Role Phone ADILIA FELIPE, VIOLETA Unavailable Unavailable SURJIT DAVID, ERIC Unavailable Unavailable Payers Payer Name Policy Type Policy Number Effective Date Expira tion Date MEDICAID [facility] [id number] Problems Condition Name Condition Details Condition Category Status Onset Date Resolution Date Last Treatment Date Treating Clinician Comments ESSENTIAL (PRIMARY) HYPERTENSION Active 09-21 00:00: 00 ATHSCL HEART DISEASE OF [place] CORONARY ARTERY W/O ANG PCTRS Active 09-21 [...] CIGARETTES, UNCOMPLICATE D Active 09-21 00:00: 00 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 09-21 00:00: [...] release 24 hr 805 00:00: 00 Yes [id number] 60 mg AT BEDTIME 60 mg AT BEDTIME (route: oral) Med Classific ation: Cardiovas cular Therapy Agents oxycodone 5 mg tablet 09-04 00:00: 00 11-19 23:59 :00 No [id number] Unavailable 5 mg FIVE TIMES DAILY NEEDED 5 mg FIVE TIMES DAILY NEEDED (route: oral) Med Classific ation: Analgesic , Anti-infl ammatory or Antipyret ic gabapentin 600 mg tablet 09-03 00:00: 00 09-25 23:59 :00 No [id number] 600 mg 2 TIMES DAILY 600 mg 2 TIMES DAILY (route: oral) Med Classific ation: Central Nervous System Agents nicotine 21 mg/24 hr daily transdermal patch 08-30 00:00: 00 Yes [id number] Unavailable 21 mg DAILY 21 mg DAILY (route: transderma l) Med Classific ation: Chemical Dependenc y, Agents to Treat Alcohol Prep Pads 08-29 00:00: 00 05-18 23:59 :00 No [id number] 1 pads, medicat ed DIRECTED THREE TIMES DAILY AND NEEDED 1 pads, medicated DIRECTED THREE TIMES DAILY AND NEEDED (route: topical) Med Classific ation: Antisepti cs and Disinfect ants amitriptyli ne 50 mg tablet 08-29 00:00: 00 09-22 23:59 :00 No [id number] Unavailable 50 mg AT BEDTIME 50 mg AT BEDTIME (route: oral) Med Classific ation: Central Nervous System Agents Asmanex HFA 100 mcg/actuati on aerosol inhaler 08-29 00:00: 00 Yes [id number] 2 puff TWICE DAILY 2 puff TWICE DAILY (route: inhalation ) Med Classific ation: Respirato ry Therapy Agents atorvastati n 80 mg tablet 08-29 00:00: 00 Yes [id number] Unavailable 80 mg BEDTIME 80 mg BEDTIME (route: oral) Med Classific ation: Cardiovas cular Therapy Agents carvedilol 25 mg tablet 08-29 00:00: 00 Yes [id number] Unavailable 25 mg TWICE DAILY 25 mg TWICE DAILY (route: oral) Med Classific ation: Cardiovas cular Therapy Agents clopidogrel 75 mg tablet 08-29 00:00: 00 Yes [id number] 75 mg EVERY AM 75 mg EVERY AM (route: oral) Med Classific ation: Hematolog ical Agents docusate sodium 100 mg capsule 08-29 00:00: 00 09-25 23:59 :00 No [id number] Unavailable 100 mg TWICE DAILY 100 mg TWICE DAILY (route: oral) Med Classific ation: Gastroint estinal Therapy Agents escitalopra m 20 mg tablet 08-29 00:00: 00 Yes [id number] Unavailable 20 mg EVERY PM 20 mg EVERY PM (route: oral) Med Classific ation: Central Nervous System Agents FeroSul 325 mg (65 mg iron) tablet 08-29 00:00: 00 09-25 23:59 :00 No [id number] Unavailable 325 mg TWICE DAILY IN THE MORNING AND AT BEDTIME 325 mg TWICE DAILY IN THE MORNING AND AT BEDTIME (route: oral) Med Classific ation: Electroly te Balance-N utritiona l Products gabapentin 800 mg tablet 08-29 00:00: 00 09-22 23:59 :00 No [id number] 800 mg 2 TIMES DAILY 800 mg 2 TIMES DAILY (route: oral) Med Classific ation: Central Nervous System Agents hydralazine 25 mg tablet 08-29 00:00: 00 09-22 23:59 :00 No [id number] Unavailable 25 mg 3 TIMES DAILY 25 mg 3 TIMES DAILY (route: oral) Med Classific ation: Cardiovas cular Therapy Agents hydralazine 50 mg tablet 08-29 00:00: 00 09-25 23:59 :00 No [id number] Unavailable 50 mg THREE TIMES DAILY IN THE MORNING AT 50 mg THREE TIMES DAILY IN THE MORNING AT (route: oral) Med Classific ation: Cardiovas cular Therapy Agents mirtazapine 45 mg tablet 08-29 00:00: 00 Yes [id number] Unavailable 45 mg AT BEDTIME 45 mg AT BEDTIME (route: oral) Med Classific ation: Central Nervous System Agents omeprazole 20 mg capsule,del ayed release 08-29 00:00: 00 Yes [id number] 20 mg TWICE DAILY 20 mg TWICE DAILY (route: oral) Med Classific ation: Gastroint estinal Therapy Agents lisinopril 40 mg tablet 09-25 00:00: 00 Yes [id number] 40 mg DAILY 40 mg DAILY (route: oral) Med Classific ation: Cardiovas cular Therapy Agents metformin 1,000 mg tablet 09-25 00:00: 00 09-22 23:59 :00 No [id number] 1000 mg 2 TIMES DAILY 1000 mg 2 TIMES DAILY (route: oral) Med Classific ation: Endocrine multivitami n tablet 09-25 00:00: 00 Yes [id number] 1 tablet DAILY 1 tablet DAILY (route: oral) Med Classific ation: Electroly te Balance-N utritiona l Products nifedipine ER 60 mg tablet,exte nded release 09-25 00:00: 00 Yes [id number] 60 mg EVERY PM 60 mg EVERY PM (route: oral) Med Classific ation: Cardiovas cular Therapy Agents pioglitazon e 15 mg tablet 09-25 00:00: 00 Yes [id number] 15 mg DAILY 15 mg DAILY (route: oral) Med Classific ation: Endocrine Tresiba FlexTouch U-100 insulin 100 unit/mL (3 mL) subcutaneou s pen 09-25 00:00: 00 Yes [id number] 10 In unit DAILY 10 In unit DAILY (route: subcutaneo ) Med Classific ation: Endocrine aspirin 81 mg tablet 09-22 00:00: 00 Yes [id number] 1 tablet DAILY 1 tablet DAILY (route: oral) Med Classific ation: Hematolog ical Agents docusate sodium 100 mg capsule 09-22 00:00: 00 Yes [id number] 1 capsule 2 TIMES DAILY 1 capsule 2 TIMES DAILY (route: oral) Med Classific ation: Gastroint estinal Therapy Agents ferrous sulfate 325 mg (65 mg iron) tablet 09-22 00:00: 00 Yes [id number] 1 tablet 2 TIMES DAILY 1 tablet 2 TIMES DAILY (route: oral) Med Classific ation: Electroly te Balance-N utritiona l Products isosorbide mononitrate ER 30 mg tablet,exte nded release 24 hr 09-22 00:00: 00 Yes [id number] 1 tablet DAILY 1 tablet DAILY (route: [...] AWARENESS FOR SAFETY AND WILL NOTIFY CLINICAL COMMUNITY LIVING INSTRUCTOR AND PHYSICIAN/PROVIDER WITH ANY CHANGE IN CONDITION. [code = SKILLED NURSE WILL MAINTAIN SITUATIONAL AWARENESS FOR SAFETY AND WILL NOTIFY CLINICAL COMMUNITY LIVING INSTRUCTOR AND PHYSICIAN/PROVIDER WITH ANY CHANGE IN CONDITION.] [...] ATION ERIC EDDY [facility] [id number] 48.39
--- OUTSIDE RECORDS SUMMARY | 2025-01-16 19:00 | XMS_ITS | Clinical Summary ---
Author Organization Unknown Care Team Providers Care County Surveyor Name Role Phone ADILIA FELIPE, VIOLETA Unavailable Unavailable SURJIT DAVID, ERIC Unavailable Unavailable Payers Payer Name Policy Type Policy Number Effective Date Expira tion Date MEDICAID [facility] [id number] Problems Condition Name Condition Details Condition Category Status Onset Date Resolution Date Last Treatment Date Treating Clinician Comments ESSENTIAL (PRIMARY) HYPERTENSION Active 09-21 00:00: 00 ATHSCL HEART DISEASE OF [place] CORONARY ARTERY W/O ANG PCTRS Active [...] CIGARETTES, UNCOMPLICATE D Active 09-21 00:00: 00 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 09-21 00:00: [...] release 24 hr 805 00:00: 00 Yes [id number] 60 mg AT BEDTIME 60 mg AT BEDTIME (route: oral) Med Classific ation: Cardiovas cular Therapy Agents oxycodone 5 mg tablet 09-04 00:00: 00 11-19 23:59 :00 No [id number] Unavailable 5 mg FIVE TIMES DAILY NEEDED 5 mg FIVE TIMES DAILY NEEDED (route: oral) Med Classific ation: Analgesic , Anti-infl ammatory or Antipyret ic gabapentin 600 mg tablet 09-03 00:00: 00 09-25 23:59 :00 No [id number] 600 mg 2 TIMES DAILY 600 mg 2 TIMES DAILY (route: oral) Med Classific ation: Central Nervous System Agents nicotine 21 mg/24 hr daily transdermal patch 08-30 00:00: 00 Yes [id number] Unavailable 21 mg DAILY 21 mg DAILY (route: transderma l) Med Classific ation: Chemical Dependenc y, Agents to Treat Alcohol Prep Pads 08-29 00:00: 00 05-18 23:59 :00 No [id number] 1 pads, medicat ed DIRECTED THREE TIMES DAILY AND NEEDED 1 pads, medicated DIRECTED THREE TIMES DAILY AND NEEDED (route: topical) Med Classific ation: Antisepti cs and Disinfect ants amitriptyli ne 50 mg tablet 08-29 00:00: 00 09-22 23:59 :00 No [id number] Unavailable 50 mg AT BEDTIME 50 mg AT BEDTIME (route: oral) Med Classific ation: Central Nervous System Agents Asmanex HFA 100 mcg/actuati on aerosol inhaler 08-29 00:00: 00 Yes [id number] 2 puff TWICE DAILY 2 puff TWICE DAILY (route: inhalation ) Med Classific ation: Respirato ry Therapy Agents atorvastati n 80 mg tablet 08-29 00:00: 00 Yes [id number] Unavailable 80 mg BEDTIME 80 mg BEDTIME (route: oral) Med Classific ation: Cardiovas cular Therapy Agents carvedilol 25 mg tablet 08-29 00:00: 00 Yes [id number] Unavailable 25 mg TWICE DAILY 25 mg TWICE DAILY (route: oral) Med Classific ation: Cardiovas cular Therapy Agents clopidogrel 75 mg tablet 08-29 00:00: 00 Yes [id number] 75 mg EVERY AM 75 mg EVERY AM (route: oral) Med Classific ation: Hematolog ical Agents docusate sodium 100 mg capsule 08-29 00:00: 00 09-25 23:59 :00 No [id number] Unavailable 100 mg TWICE DAILY 100 mg TWICE DAILY (route: oral) Med Classific ation: Gastroint estinal Therapy Agents escitalopra m 20 mg tablet 08-29 00:00: 00 Yes [id number] Unavailable 20 mg EVERY PM 20 mg EVERY PM (route: oral) Med Classific ation: Central Nervous System Agents FeroSul 325 mg (65 mg iron) tablet 08-29 00:00: 00 09-25 23:59 :00 No [id number] Unavailable 325 mg TWICE DAILY IN THE MORNING AND AT BEDTIME 325 mg TWICE DAILY IN THE MORNING AND AT BEDTIME (route: oral) Med Classific ation: Electroly te Balance-N utritiona l Products gabapentin 800 mg tablet 08-29 00:00: 00 09-22 23:59 :00 No [id number] 800 mg 2 TIMES DAILY 800 mg 2 TIMES DAILY (route: oral) Med Classific ation: Central Nervous System Agents hydralazine 25 mg tablet 08-29 00:00: 00 09-22 23:59 :00 No [id number] Unavailable 25 mg 3 TIMES DAILY 25 mg 3 TIMES DAILY (route: oral) Med Classific ation: Cardiovas cular Therapy Agents hydralazine 50 mg tablet 08-29 00:00: 00 09-25 23:59 :00 No [id number] Unavailable 50 mg THREE TIMES DAILY IN THE MORNING AT 50 mg THREE TIMES DAILY IN THE MORNING AT (route: oral) Med Classific ation: Cardiovas cular Therapy Agents mirtazapine 45 mg tablet 08-29 00:00: 00 Yes [id number] Unavailable 45 mg AT BEDTIME 45 mg AT BEDTIME (route: oral) Med Classific ation: Central Nervous System Agents omeprazole 20 mg capsule,del ayed release 08-29 00:00: 00 Yes [id number] 20 mg TWICE DAILY 20 mg TWICE DAILY (route: oral) Med Classific ation: Gastroint estinal Therapy Agents lisinopril 40 mg tablet 09-25 00:00: 00 Yes [id number] 40 mg DAILY 40 mg DAILY (route: oral) Med Classific ation: Cardiovas cular Therapy Agents metformin 1,000 mg tablet 09-25 00:00: 00 09-22 23:59 :00 No [id number] 1000 mg 2 TIMES DAILY 1000 mg 2 TIMES DAILY (route: oral) Med Classific ation: Endocrine multivitami n tablet 09-25 00:00: 00 Yes [id number] 1 tablet DAILY 1 tablet DAILY (route: oral) Med Classific ation: Electroly te Balance-N utritiona l Products nifedipine ER 60 mg tablet,exte nded release 09-25 00:00: 00 Yes [id number] 60 mg EVERY PM 60 mg EVERY PM (route: oral) Med Classific ation: Cardiovas cular Therapy Agents pioglitazon e 15 mg tablet 09-25 00:00: 00 Yes [id number] 15 mg DAILY 15 mg DAILY (route: oral) Med Classific ation: Endocrine Tresiba FlexTouch U-100 insulin 100 unit/mL (3 mL) subcutaneou s pen 09-25 00:00: 00 Yes [id number] 10 In unit DAILY 10 In unit DAILY (route: subcutaneo ) Med Classific ation: Endocrine aspirin 81 mg tablet 09-22 00:00: 00 Yes [id number] 1 tablet DAILY 1 tablet DAILY (route: oral) Med Classific ation: Hematolog ical Agents docusate sodium 100 mg capsule 09-22 00:00: 00 Yes [id number] 1 capsule 2 TIMES DAILY 1 capsule 2 TIMES DAILY (route: oral) Med Classific ation: Gastroint estinal Therapy Agents ferrous sulfate 325 mg (65 mg iron) tablet 09-22 00:00: 00 Yes [id number] 1 tablet 2 TIMES DAILY 1 tablet 2 TIMES DAILY (route: oral) Med Classific ation: Electroly te Balance-N utritiona l Products isosorbide mononitrate ER 30 mg tablet,exte nded release 24 hr 09-22 00:00: 00 Yes [id number] 1 tablet DAILY 1 tablet DAILY (route: [...] AWARENESS FOR SAFETY AND WILL NOTIFY CLINICAL DOULA AND PHYSICIAN/PROVIDER WITH ANY CHANGE IN CONDITION. [code = SKILLED NURSE WILL MAINTAIN SITUATIONAL AWARENESS FOR SAFETY AND WILL NOTIFY CLINICAL DOULA AND PHYSICIAN/PROVIDER WITH ANY CHANGE IN CONDITION.] [...] 2024-11-19 00:00:00 2025-01-17 00:00:00 Outpatient RECERTIFIC ATION REIC EDDY [facility] [id number] 48.39
--- OUTSIDE RECORDS SUMMARY | 2025-01-16 19:00 | XMS_ITS | Clinical Summary ---
Author Organization Unknown Care Team Providers Care Gantry Crane Operator Name Role Phone ADILIA FELIPE, VIOLETA Unavailable Unavailable SURJIT DAVID, ERIC Unavailable Unavailable Payers Payer Name Policy Type Policy Number Effective Date Expira tion Date MEDICAID [facility] [id number] Problems Condition Name Condition Details Condition Category Status Onset Date Resolution Date Last Treatment Date Treating Clinician Comments ESSENTIAL (PRIMARY) HYPERTENSION Active 09-21 00:00: 00 ATHSCL HEART DISEASE OF [place] CORONARY ARTERY W/O ANG PCTRS Active 09-21 [...] CIGARETTES, UNCOMPLICATE D Active 09-21 00:00: 00 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 [...] release 24 hr 805 00:00: 00 Yes [id number] 60 mg AT BEDTIME 60 mg AT BEDTIME (route: oral) Med Classific ation: Cardiovas cular Therapy Agents oxycodone 5 mg tablet 09-04 00:00: 00 11-19 23:59 :00 No [id number] Unavailable 5 mg FIVE TIMES DAILY NEEDED 5 mg FIVE TIMES DAILY NEEDED (route: oral) Med Classific ation: Analgesic , Anti-infl ammatory or Antipyret ic gabapentin 600 mg tablet 09-03 00:00: 00 09-25 23:59 :00 No [id number] 600 mg 2 TIMES DAILY 600 mg 2 TIMES DAILY (route: oral) Med Classific ation: Central Nervous System Agents nicotine 21 mg/24 hr daily transdermal patch 08-30 00:00: 00 Yes [id number] Unavailable 21 mg DAILY 21 mg DAILY (route: transderma l) Med Classific ation: Chemical Dependenc y, Agents to Treat Alcohol Prep Pads 08-29 00:00: 00 05-18 23:59 :00 No [id number] 1 pads, medicat ed DIRECTED THREE TIMES DAILY AND NEEDED 1 pads, medicated DIRECTED THREE TIMES DAILY AND NEEDED (route: topical) Med Classific ation: Antisepti cs and Disinfect ants amitriptyli ne 50 mg tablet 08-29 00:00: 00 09-22 23:59 :00 No [id number] Unavailable 50 mg AT BEDTIME 50 mg AT BEDTIME (route: oral) Med Classific ation: Central Nervous System Agents Asmanex HFA 100 mcg/actuati on aerosol inhaler 08-29 00:00: 00 Yes [id number] 2 puff TWICE DAILY 2 puff TWICE DAILY (route: inhalation ) Med Classific ation: Respirato ry Therapy Agents atorvastati n 80 mg tablet 08-29 00:00: 00 Yes [id number] Unavailable 80 mg BEDTIME 80 mg BEDTIME (route: oral) Med Classific ation: Cardiovas cular Therapy Agents carvedilol 25 mg tablet 08-29 00:00: 00 Yes [id number] Unavailable 25 mg TWICE DAILY 25 mg TWICE DAILY (route: oral) Med Classific ation: Cardiovas cular Therapy Agents clopidogrel 75 mg tablet 08-29 00:00: 00 Yes [id number] 75 mg EVERY AM 75 mg EVERY AM (route: oral) Med Classific ation: Hematolog ical Agents docusate sodium 100 mg capsule 08-29 00:00: 00 09-25 23:59 :00 No [id number] Unavailable 100 mg TWICE DAILY 100 mg TWICE DAILY (route: oral) Med Classific ation: Gastroint estinal Therapy Agents escitalopra m 20 mg tablet 08-29 00:00: 00 Yes [id number] Unavailable 20 mg EVERY PM 20 mg EVERY PM (route: oral) Med Classific ation: Central Nervous System Agents FeroSul 325 mg (65 mg iron) tablet 08-29 00:00: 00 09-25 23:59 :00 No [id number] Unavailable 325 mg TWICE DAILY IN THE MORNING AND AT BEDTIME 325 mg TWICE DAILY IN THE MORNING AND AT BEDTIME (route: oral) Med Classific ation: Electroly te Balance-N utritiona l Products gabapentin 800 mg tablet 08-29 00:00: 00 09-22 23:59 :00 No [id number] 800 mg 2 TIMES DAILY 800 mg 2 TIMES DAILY (route: oral) Med Classific ation: Central Nervous System Agents hydralazine 25 mg tablet 08-29 00:00: 00 09-22 23:59 :00 No [id number] Unavailable 25 mg 3 TIMES DAILY 25 mg 3 TIMES DAILY (route: oral) Med Classific ation: Cardiovas cular Therapy Agents hydralazine 50 mg tablet 08-29 00:00: 00 09-25 23:59 :00 No [id number] Unavailable 50 mg THREE TIMES DAILY IN THE MORNING AT 50 mg THREE TIMES DAILY IN THE MORNING AT (route: oral) Med Classific ation: Cardiovas cular Therapy Agents mirtazapine 45 mg tablet 08-29 00:00: 00 Yes [id number] Unavailable 45 mg AT BEDTIME 45 mg AT BEDTIME (route: oral) Med Classific ation: Central Nervous System Agents omeprazole 20 mg capsule,del ayed release 08-29 00:00: 00 Yes [id number] 20 mg TWICE DAILY 20 mg TWICE DAILY (route: oral) Med Classific ation: Gastroint estinal Therapy Agents lisinopril 40 mg tablet 09-25 00:00: 00 Yes [id number] 40 mg DAILY 40 mg DAILY (route: oral) Med Classific ation: Cardiovas cular Therapy Agents metformin 1,000 mg tablet 09-25 00:00: 00 09-22 23:59 :00 No [id number] 1000 mg 2 TIMES DAILY 1000 mg 2 TIMES DAILY (route: oral) Med Classific ation: Endocrine multivitami n tablet 09-25 00:00: 00 Yes [id number] 1 tablet DAILY 1 tablet DAILY (route: oral) Med Classific ation: Electroly te Balance-N utritiona l Products nifedipine ER 60 mg tablet,exte nded release 09-25 00:00: 00 Yes [id number] 60 mg EVERY PM 60 mg EVERY PM (route: oral) Med Classific ation: Cardiovas cular Therapy Agents pioglitazon e 15 mg tablet 09-25 00:00: 00 Yes [id number] 15 mg DAILY 15 mg DAILY (route: oral) Med Classific ation: Endocrine Tresiba FlexTouch U-100 insulin 100 unit/mL (3 mL) subcutaneou s pen 09-25 00:00: 00 Yes [id number] 10 In unit DAILY 10 In unit DAILY (route: subcutaneo ) Med Classific ation: Endocrine aspirin 81 mg tablet 09-22 00:00: 00 Yes [id number] 1 tablet DAILY 1 tablet DAILY (route: oral) Med Classific ation: Hematolog ical Agents docusate sodium 100 mg capsule 09-22 00:00: 00 Yes [id number] 1 capsule 2 TIMES DAILY 1 capsule 2 TIMES DAILY (route: oral) Med Classific ation: Gastroint estinal Therapy Agents ferrous sulfate 325 mg (65 mg iron) tablet 09-22 00:00: 00 Yes [id number] 1 tablet 2 TIMES DAILY 1 tablet 2 TIMES DAILY (route: oral) Med Classific ation: Electroly te Balance-N utritiona l Products isosorbide mononitrate ER 30 mg tablet,exte nded release 24 hr 09-22 00:00: 00 Yes [id number] 1 tablet DAILY 1 tablet DAILY (route: [...] AWARENESS FOR SAFETY AND WILL NOTIFY CLINICAL PIPE THREADER AND PHYSICIAN/PROVIDER WITH ANY CHANGE IN CONDITION. [code = SKILLED NURSE WILL MAINTAIN SITUATIONAL AWARENESS FOR SAFETY AND WILL NOTIFY CLINICAL PIPE THREADER AND PHYSICIAN/PROVIDER WITH ANY CHANGE IN CONDITION.] [...] End Date/Time Encounter Type Admission Type Attending [email or web address] Care Department Encounter ID Discharge Date Discharge Status Discharge Condition Discharge Reason Percent Goals Met 2024-11-19 00:00:00 2025-01-17 00:00:00 Outpatient RECERTIFIC ATION ERIC EDDY [facility] [id number] 48.39
--- OUTSIDE RECORDS SUMMARY | 2025-01-16 19:00 | XMS_ITS | Clinical Summary ---
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 09-21 [...] release 24 hr 805 00:00: 00 Yes [id number] 60 mg AT BEDTIME 60 mg AT BEDTIME (route: oral) Med Classific ation: Cardiovas cular Therapy Agents oxycodone 5 mg tablet 09-04 00:00: 00 11-19 23:59 :00 No [id number] Unavailable 5 mg FIVE TIMES DAILY NEEDED 5 mg FIVE TIMES DAILY NEEDED (route: oral) Med Classific ation: Analgesic , Anti-infl ammatory or Antipyret ic gabapentin 600 mg tablet 09-03 00:00: 00 09-25 23:59 :00 No [id number] 600 mg 2 TIMES DAILY 600 mg 2 TIMES DAILY (route: oral) Med Classific ation: Central Nervous System Agents nicotine 21 mg/24 hr daily transdermal patch 08-30 00:00: 00 Yes [id number] Unavailable 21 mg DAILY 21 mg DAILY (route: transderma l) Med Classific ation: Chemical Dependenc y, Agents to Treat Alcohol Prep Pads 08-29 00:00: 00 05-18 23:59 :00 No [id number] 1 pads, medicat ed DIRECTED THREE TIMES DAILY AND NEEDED 1 pads, medicated DIRECTED THREE TIMES DAILY AND NEEDED (route: topical) Med Classific ation: Antisepti cs and Disinfect ants amitriptyli ne 50 mg tablet 08-29 00:00: 00 09-22 23:59 :00 No [id number] Unavailable 50 mg AT BEDTIME 50 mg AT BEDTIME (route: oral) Med Classific ation: Central Nervous System Agents Asmanex HFA 100 mcg/actuati on aerosol inhaler 08-29 00:00: 00 Yes [id number] 2 puff TWICE DAILY 2 puff TWICE DAILY (route: inhalation ) Med Classific ation: Respirato ry Therapy Agents atorvastati n 80 mg tablet 08-29 00:00: 00 Yes [id number] Unavailable 80 mg BEDTIME 80 mg BEDTIME (route: oral) Med Classific ation: Cardiovas cular Therapy Agents carvedilol 25 mg tablet 08-29 00:00: 00 Yes [id number] Unavailable 25 mg TWICE DAILY 25 mg TWICE DAILY (route: oral) Med Classific ation: Cardiovas cular Therapy Agents clopidogrel 75 mg tablet 08-29 00:00: 00 Yes [id number] 75 mg EVERY AM 75 mg EVERY AM (route: oral) Med Classific ation: Hematolog ical Agents docusate sodium 100 mg capsule 08-29 00:00: 00 09-25 23:59 :00 No [id number] Unavailable 100 mg TWICE DAILY 100 mg TWICE DAILY (route: oral) Med Classific ation: Gastroint estinal Therapy Agents escitalopra m 20 mg tablet 08-29 00:00: 00 Yes [id number] Unavailable 20 mg EVERY PM 20 mg EVERY PM (route: oral) Med Classific ation: Central Nervous System Agents FeroSul 325 mg (65 mg iron) tablet 08-29 00:00: 00 09-25 23:59 :00 No [id number] Unavailable 325 mg TWICE DAILY IN THE MORNING AND AT BEDTIME 325 mg TWICE DAILY IN THE MORNING AND AT BEDTIME (route: oral) Med Classific ation: Electroly te Balance-N utritiona l Products gabapentin 800 mg tablet 08-29 00:00: 00 09-22 23:59 :00 No [id number] 800 mg 2 TIMES DAILY 800 mg 2 TIMES DAILY (route: oral) Med Classific ation: Central Nervous System Agents hydralazine 25 mg tablet 08-29 00:00: 00 09-22 23:59 :00 No [id number] Unavailable 25 mg 3 TIMES DAILY 25 mg 3 TIMES DAILY (route: oral) Med Classific ation: Cardiovas cular Therapy Agents hydralazine 50 mg tablet 08-29 00:00: 00 09-25 23:59 :00 No [id number] Unavailable 50 mg THREE TIMES DAILY IN THE MORNING AT 50 mg THREE TIMES DAILY IN THE MORNING AT (route: oral) Med Classific ation: Cardiovas cular Therapy Agents mirtazapine 45 mg tablet 08-29 00:00: 00 Yes [id number] Unavailable 45 mg AT BEDTIME 45 mg AT BEDTIME (route: oral) Med Classific ation: Central Nervous System Agents omeprazole 20 mg capsule,del ayed release 08-29 00:00: 00 Yes [id number] 20 mg TWICE DAILY 20 mg TWICE DAILY (route: oral) Med Classific ation: Gastroint estinal Therapy Agents lisinopril 40 mg tablet 09-25 00:00: 00 Yes [id number] 40 mg DAILY 40 mg DAILY (route: oral) Med Classific ation: Cardiovas cular Therapy Agents metformin 1,000 mg tablet 09-25 00:00: 00 09-22 23:59 :00 No [id number] 1000 mg 2 TIMES DAILY 1000 mg 2 TIMES DAILY (route: oral) Med Classific ation: Endocrine multivitami n tablet 09-25 00:00: 00 Yes [id number] 1 tablet DAILY 1 tablet DAILY (route: oral) Med Classific ation: Electroly te Balance-N utritiona l Products nifedipine ER 60 mg tablet,exte nded release 09-25 00:00: 00 Yes [id number] 60 mg EVERY PM 60 mg EVERY PM (route: oral) Med Classific ation: Cardiovas cular Therapy Agents pioglitazon e 15 mg tablet 09-25 00:00: 00 Yes [id number] 15 mg DAILY 15 mg DAILY (route: oral) Med Classific ation: Endocrine Tresiba FlexTouch U-100 insulin 100 unit/mL (3 mL) subcutaneou s pen 09-25 00:00: 00 Yes [id number] 10 In unit DAILY 10 In unit DAILY (route: subcutaneo ) Med Classific ation: Endocrine aspirin 81 mg tablet 09-22 00:00: 00 Yes [id number] 1 tablet DAILY 1 tablet DAILY (route: oral) Med Classific ation: Hematolog ical Agents docusate sodium 100 mg capsule 09-22 00:00: 00 Yes [id number] 1 capsule 2 TIMES DAILY 1 capsule 2 TIMES DAILY (route: oral) Med Classific ation: Gastroint estinal Therapy Agents ferrous sulfate 325 mg (65 mg iron) tablet 09-22 00:00: 00 Yes [id number] 1 tablet 2 TIMES DAILY 1 tablet 2 TIMES DAILY (route: oral) Med Classific ation: Electroly te Balance-N utritiona l Products isosorbide mononitrate ER 30 mg tablet,exte nded release 24 hr 09-22 00:00: 00 Yes [id number] 1 tablet DAILY 1 tablet DAILY (route: [...] AWARENESS FOR SAFETY AND WILL NOTIFY CLINICAL HOG KILLER AND PHYSICIAN/PROVIDER WITH ANY CHANGE IN CONDITION. [code = SKILLED NURSE WILL MAINTAIN SITUATIONAL AWARENESS FOR SAFETY AND WILL NOTIFY CLINICAL HOG KILLER AND PHYSICIAN/PROVIDER WITH ANY CHANGE IN CONDITION.] [...] ERIC EDDY [facility] [id number] 48.39
--- OUTSIDE RECORDS SUMMARY | 2025-01-16 19:00 | XMS_ITS | Clinical Summary ---
Author Organization Unknown Care Team Providers Care Records Supervisor Name Role Phone ADILIA FELIPE, VIOLETA Unavailable Unavailable SURJIT DAVID, ERIC Unavailable Unavailable Payers Payer Name Policy Type Policy Number Effective Date Expira tion Date MEDICAID [facility] [id number] Problems Condition Name Condition Details Condition Category Status Onset Date Resolution Date Last Treatment Date Treating Clinician Comments ESSENTIAL (PRIMARY) HYPERTENSION Active 09-21 00:00: 00 ATHSCL HEART DISEASE OF [place] CORONARY ARTERY W/O ANG PCTRS Active 09-21 [...] CIGARETTES, UNCOMPLICATE D Active 09-21 00:00: 00 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 09-21 00:00: [...] release 24 hr 805 00:00: 00 Yes [id number] 60 mg AT BEDTIME 60 mg AT BEDTIME (route: oral) Med Classific ation: Cardiovas cular Therapy Agents oxycodone 5 mg tablet 09-04 00:00: 00 11-19 23:59 :00 No [id number] Unavailable 5 mg FIVE TIMES DAILY NEEDED 5 mg FIVE TIMES DAILY NEEDED (route: oral) Med Classific ation: Analgesic , Anti-infl ammatory or Antipyret ic gabapentin 600 mg tablet 09-03 00:00: 00 09-25 23:59 :00 No [id number] 600 mg 2 TIMES DAILY 600 mg 2 TIMES DAILY (route: oral) Med Classific ation: Central Nervous System Agents nicotine 21 mg/24 hr daily transdermal patch 08-30 00:00: 00 Yes [id number] Unavailable 21 mg DAILY 21 mg DAILY (route: transderma l) Med Classific ation: Chemical Dependenc y, Agents to Treat Alcohol Prep Pads 08-29 00:00: 00 05-18 23:59 :00 No [id number] 1 pads, medicat ed DIRECTED THREE TIMES DAILY AND NEEDED 1 pads, medicated DIRECTED THREE TIMES DAILY AND NEEDED (route: topical) Med Classific ation: Antisepti cs and Disinfect ants amitriptyli ne 50 mg tablet 08-29 00:00: 00 09-22 23:59 :00 No [id number] Unavailable 50 mg AT BEDTIME 50 mg AT BEDTIME (route: oral) Med Classific ation: Central Nervous System Agents Asmanex HFA 100 mcg/actuati on aerosol inhaler 08-29 00:00: 00 Yes [id number] 2 puff TWICE DAILY 2 puff TWICE DAILY (route: inhalation ) Med Classific ation: Respirato ry Therapy Agents atorvastati n 80 mg tablet 08-29 00:00: 00 Yes [id number] Unavailable 80 mg BEDTIME 80 mg BEDTIME (route: oral) Med Classific ation: Cardiovas cular Therapy Agents carvedilol 25 mg tablet 08-29 00:00: 00 Yes [id number] Unavailable 25 mg TWICE DAILY 25 mg TWICE DAILY (route: oral) Med Classific ation: Cardiovas cular Therapy Agents clopidogrel 75 mg tablet 08-29 00:00: 00 Yes [id number] 75 mg EVERY AM 75 mg EVERY AM (route: oral) Med Classific ation: Hematolog ical Agents docusate sodium 100 mg capsule 08-29 00:00: 00 09-25 23:59 :00 No [id number] Unavailable 100 mg TWICE DAILY 100 mg TWICE DAILY (route: oral) Med Classific ation: Gastroint estinal Therapy Agents escitalopra m 20 mg tablet 08-29 00:00: 00 Yes [id number] Unavailable 20 mg EVERY PM 20 mg EVERY PM (route: oral) Med Classific ation: Central Nervous System Agents FeroSul 325 mg (65 mg iron) tablet 08-29 00:00: 00 09-25 23:59 :00 No [id number] Unavailable 325 mg TWICE DAILY IN THE MORNING AND AT BEDTIME 325 mg TWICE DAILY IN THE MORNING AND AT BEDTIME (route: oral) Med Classific ation: Electroly te Balance-N utritiona l Products gabapentin 800 mg tablet 08-29 00:00: 00 09-22 23:59 :00 No [id number] 800 mg 2 TIMES DAILY 800 mg 2 TIMES DAILY (route: oral) Med Classific ation: Central Nervous System Agents hydralazine 25 mg tablet 08-29 00:00: 00 09-22 23:59 :00 No [id number] Unavailable 25 mg 3 TIMES DAILY 25 mg 3 TIMES DAILY (route: oral) Med Classific ation: Cardiovas cular Therapy Agents hydralazine 50 mg tablet 08-29 00:00: 00 09-25 23:59 :00 No [id number] Unavailable 50 mg THREE TIMES DAILY IN THE MORNING AT 50 mg THREE TIMES DAILY IN THE MORNING AT (route: oral) Med Classific ation: Cardiovas cular Therapy Agents mirtazapine 45 mg tablet 08-29 00:00: 00 Yes [id number] Unavailable 45 mg AT BEDTIME 45 mg AT BEDTIME (route: oral) Med Classific ation: Central Nervous System Agents omeprazole 20 mg capsule,del ayed release 08-29 00:00: 00 Yes [id number] 20 mg TWICE DAILY 20 mg TWICE DAILY (route: oral) Med Classific ation: Gastroint estinal Therapy Agents lisinopril 40 mg tablet 09-25 00:00: 00 Yes [id number] 40 mg DAILY 40 mg DAILY (route: oral) Med Classific ation: Cardiovas cular Therapy Agents metformin 1,000 mg tablet 09-25 00:00: 00 09-22 23:59 :00 No [id number] 1000 mg 2 TIMES DAILY 1000 mg 2 TIMES DAILY (route: oral) Med Classific ation: Endocrine multivitami n tablet 09-25 00:00: 00 Yes [id number] 1 tablet DAILY 1 tablet DAILY (route: oral) Med Classific ation: Electroly te Balance-N utritiona l Products nifedipine ER 60 mg tablet,exte nded release 09-25 00:00: 00 Yes [id number] 60 mg EVERY PM 60 mg EVERY PM (route: oral) Med Classific ation: Cardiovas cular Therapy Agents pioglitazon e 15 mg tablet 09-25 00:00: 00 Yes [id number] 15 mg DAILY 15 mg DAILY (route: oral) Med Classific ation: Endocrine Tresiba FlexTouch U-100 insulin 100 unit/mL (3 mL) subcutaneou s pen 09-25 00:00: 00 Yes [id number] 10 In unit DAILY 10 In unit DAILY (route: subcutaneo ) Med Classific ation: Endocrine aspirin 81 mg tablet 09-22 00:00: 00 Yes [id number] 1 tablet DAILY 1 tablet DAILY (route: oral) Med Classific ation: Hematolog ical Agents docusate sodium 100 mg capsule 09-22 00:00: 00 Yes [id number] 1 capsule 2 TIMES DAILY 1 capsule 2 TIMES DAILY (route: oral) Med Classific ation: Gastroint estinal Therapy Agents ferrous sulfate 325 mg (65 mg iron) tablet 09-22 00:00: 00 Yes [id number] 1 tablet 2 TIMES DAILY 1 tablet 2 TIMES DAILY (route: oral) Med Classific ation: Electroly te Balance-N utritiona l Products isosorbide mononitrate ER 30 mg tablet,exte nded release 24 hr 09-22 00:00: 00 Yes [id number] 1 tablet DAILY 1 tablet DAILY (route: [...] AWARENESS FOR SAFETY AND WILL NOTIFY CLINICAL AVIONICS SYSTEMS TECHNICIAN AND PHYSICIAN/PROVIDER WITH ANY CHANGE IN CONDITION. [code = SKILLED NURSE WILL MAINTAIN SITUATIONAL AWARENESS FOR SAFETY AND WILL NOTIFY CLINICAL AVIONICS SYSTEMS TECHNICIAN AND PHYSICIAN/PROVIDER WITH ANY CHANGE IN [...] RECERTIFIC ATION ERIC EDDY [facility] [id number] 48.39
--- OUTSIDE RECORDS SUMMARY | 2025-01-16 19:00 | XMS_ITS | Clinical Summary ---
Author Organization Unknown Care Team Providers Care Social Media Campaign Manager Name Role Phone ADILIA FELIPE, VIOLETA Unavailable Unavailable SURJIT DAVID, ERIC Unavailable Unavailable Payers Payer Name Policy Type Policy Number Effective Date Expira tion Date MEDICAID [facility] [id number] Problems Condition Name Condition Details Condition Category Status Onset Date Resolution Date Last Treatment Date Treating Clinician Comments ESSENTIAL (PRIMARY) HYPERTENSION Active 09-21 00:00: 00 ATHSCL HEART DISEASE OF [place] CORONARY ARTERY W/O ANG PCTRS Active 09-21 [...] CIGARETTES, UNCOMPLICATE D Active 09-21 00:00: 00 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 09-21 [...] release 24 hr 805 00:00: 00 Yes [id number] 60 mg AT BEDTIME 60 mg AT BEDTIME (route: oral) Med Classific ation: Cardiovas cular Therapy Agents oxycodone 5 mg tablet 09-04 00:00: 00 11-19 23:59 :00 No [id number] Unavailable 5 mg FIVE TIMES DAILY NEEDED 5 mg FIVE TIMES DAILY NEEDED (route: oral) Med Classific ation: Analgesic , Anti-infl ammatory or Antipyret ic gabapentin 600 mg tablet 09-03 00:00: 00 09-25 23:59 :00 No [id number] 600 mg 2 TIMES DAILY 600 mg 2 TIMES DAILY (route: oral) Med Classific ation: Central Nervous System Agents nicotine 21 mg/24 hr daily transdermal patch 08-30 00:00: 00 Yes [id number] Unavailable 21 mg DAILY 21 mg DAILY (route: transderma l) Med Classific ation: Chemical Dependenc y, Agents to Treat Alcohol Prep Pads 08-29 00:00: 00 05-18 23:59 :00 No [id number] 1 pads, medicat ed DIRECTED THREE TIMES DAILY AND NEEDED 1 pads, medicated DIRECTED THREE TIMES DAILY AND NEEDED (route: topical) Med Classific ation: Antisepti cs and Disinfect ants amitriptyli ne 50 mg tablet 08-29 00:00: 00 09-22 23:59 :00 No [id number] Unavailable 50 mg AT BEDTIME 50 mg AT BEDTIME (route: oral) Med Classific ation: Central Nervous System Agents Asmanex HFA 100 mcg/actuati on aerosol inhaler 08-29 00:00: 00 Yes [id number] 2 puff TWICE DAILY 2 puff TWICE DAILY (route: inhalation ) Med Classific ation: Respirato ry Therapy Agents atorvastati n 80 mg tablet 08-29 00:00: 00 Yes [id number] Unavailable 80 mg BEDTIME 80 mg BEDTIME (route: oral) Med Classific ation: Cardiovas cular Therapy Agents carvedilol 25 mg tablet 08-29 00:00: 00 Yes [id number] Unavailable 25 mg TWICE DAILY 25 mg TWICE DAILY (route: oral) Med Classific ation: Cardiovas cular Therapy Agents clopidogrel 75 mg tablet 08-29 00:00: 00 Yes [id number] 75 mg EVERY AM 75 mg EVERY AM (route: oral) Med Classific ation: Hematolog ical Agents docusate sodium 100 mg capsule 08-29 00:00: 00 09-25 23:59 :00 No [id number] Unavailable 100 mg TWICE DAILY 100 mg TWICE DAILY (route: oral) Med Classific ation: Gastroint estinal Therapy Agents escitalopra m 20 mg tablet 08-29 00:00: 00 Yes [id number] Unavailable 20 mg EVERY PM 20 mg EVERY PM (route: oral) Med Classific ation: Central Nervous System Agents FeroSul 325 mg (65 mg iron) tablet 08-29 00:00: 00 09-25 23:59 :00 No [id number] Unavailable 325 mg TWICE DAILY IN THE MORNING AND AT BEDTIME 325 mg TWICE DAILY IN THE MORNING AND AT BEDTIME (route: oral) Med Classific ation: Electroly te Balance-N utritiona l Products gabapentin 800 mg tablet 08-29 00:00: 00 09-22 23:59 :00 No [id number] 800 mg 2 TIMES DAILY 800 mg 2 TIMES DAILY (route: oral) Med Classific ation: Central Nervous System Agents hydralazine 25 mg tablet 08-29 00:00: 00 09-22 23:59 :00 No [id number] Unavailable 25 mg 3 TIMES DAILY 25 mg 3 TIMES DAILY (route: oral) Med Classific ation: Cardiovas cular Therapy Agents hydralazine 50 mg tablet 08-29 00:00: 00 09-25 23:59 :00 No [id number] Unavailable 50 mg THREE TIMES DAILY IN THE MORNING AT 50 mg THREE TIMES DAILY IN THE MORNING AT (route: oral) Med Classific ation: Cardiovas cular Therapy Agents mirtazapine 45 mg tablet 08-29 00:00: 00 Yes [id number] Unavailable 45 mg AT BEDTIME 45 mg AT BEDTIME (route: oral) Med Classific ation: Central Nervous System Agents omeprazole 20 mg capsule,del ayed release 08-29 00:00: 00 Yes [id number] 20 mg TWICE DAILY 20 mg TWICE DAILY (route: oral) Med Classific ation: Gastroint estinal Therapy Agents lisinopril 40 mg tablet 09-25 00:00: 00 Yes [id number] 40 mg DAILY 40 mg DAILY (route: oral) Med Classific ation: Cardiovas cular Therapy Agents metformin 1,000 mg tablet 09-25 00:00: 00 09-22 23:59 :00 No [id number] 1000 mg 2 TIMES DAILY 1000 mg 2 TIMES DAILY (route: oral) Med Classific ation: Endocrine multivitami n tablet 09-25 00:00: 00 Yes [id number] 1 tablet DAILY 1 tablet DAILY (route: oral) Med Classific ation: Electroly te Balance-N utritiona l Products nifedipine ER 60 mg tablet,exte nded release 09-25 00:00: 00 Yes [id number] 60 mg EVERY PM 60 mg EVERY PM (route: oral) Med Classific ation: Cardiovas cular Therapy Agents pioglitazon e 15 mg tablet 09-25 00:00: 00 Yes [id number] 15 mg DAILY 15 mg DAILY (route: oral) Med Classific ation: Endocrine Tresiba FlexTouch U-100 insulin 100 unit/mL (3 mL) subcutaneou s pen 09-25 00:00: 00 Yes [id number] 10 In unit DAILY 10 In unit DAILY (route: subcutaneo ) Med Classific ation: Endocrine aspirin 81 mg tablet 09-22 00:00: 00 Yes [id number] 1 tablet DAILY 1 tablet DAILY (route: oral) Med Classific ation: Hematolog ical Agents docusate sodium 100 mg capsule 09-22 00:00: 00 Yes [id number] 1 capsule 2 TIMES DAILY 1 capsule 2 TIMES DAILY (route: oral) Med Classific ation: Gastroint estinal Therapy Agents ferrous sulfate 325 mg (65 mg iron) tablet 09-22 00:00: 00 Yes [id number] 1 tablet 2 TIMES DAILY 1 tablet 2 TIMES DAILY (route: oral) Med Classific ation: Electroly te Balance-N utritiona l Products isosorbide mononitrate ER 30 mg tablet,exte nded release 24 hr 09-22 00:00: 00 Yes [id number] 1 tablet DAILY 1 tablet DAILY (route: [...] AWARENESS FOR SAFETY AND WILL NOTIFY CLINICAL ADVERTISING CLERK AND PHYSICIAN/PROVIDER WITH ANY CHANGE IN CONDITION. [code = SKILLED NURSE WILL MAINTAIN SITUATIONAL AWARENESS FOR SAFETY AND WILL NOTIFY CLINICAL ADVERTISING CLERK AND PHYSICIAN/PROVIDER WITH ANY CHANGE IN [...] Outpatient RECERTIFIC ATION ERIC EDDY [facility] [id number] 48.39
--- OUTSIDE RECORDS SUMMARY | 2025-01-16 19:00 | XMS_ITS | Clinical Summary ---
Author Organization Unknown Care Team Providers Care Manager Community Name Role Phone ADILIA FELIPE, VIOLETA Unavailable Unavailable SURJIT DAVID, ERIC Unavailable Unavailable Payers Payer Name Policy Type Policy Number Effective Date Expira tion Date MEDICAID [facility] [id number] Problems Condition Name Condition Details Condition Category Status Onset Date Resolution Date Last Treatment Date Treating Clinician Comments ESSENTIAL (PRIMARY) HYPERTENSION Active 09-21 00:00: 00 ATHSCL HEART DISEASE OF [place] CORONARY ARTERY W/O ANG PCTRS Active 09-21 [...] CIGARETTES, UNCOMPLICATE D Active 09-21 00:00: 00 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 09-21 00:00: [...] release 24 hr 805 00:00: 00 Yes [id number] 60 mg AT BEDTIME 60 mg AT BEDTIME (route: oral) Med Classific ation: Cardiovas cular Therapy Agents oxycodone 5 mg tablet 09-04 00:00: 00 11-19 23:59 :00 No [id number] Unavailable 5 mg FIVE TIMES DAILY NEEDED 5 mg FIVE TIMES DAILY NEEDED (route: oral) Med Classific ation: Analgesic , Anti-infl ammatory or Antipyret ic gabapentin 600 mg tablet 09-03 00:00: 00 09-25 23:59 :00 No [id number] 600 mg 2 TIMES DAILY 600 mg 2 TIMES DAILY (route: oral) Med Classific ation: Central Nervous System Agents nicotine 21 mg/24 hr daily transdermal patch 08-30 00:00: 00 Yes [id number] Unavailable 21 mg DAILY 21 mg DAILY (route: transderma l) Med Classific ation: Chemical Dependenc y, Agents to Treat Alcohol Prep Pads 08-29 00:00: 00 05-18 23:59 :00 No [id number] 1 pads, medicat ed DIRECTED THREE TIMES DAILY AND NEEDED 1 pads, medicated DIRECTED THREE TIMES DAILY AND NEEDED (route: topical) Med Classific ation: Antisepti cs and Disinfect ants amitriptyli ne 50 mg tablet 08-29 00:00: 00 09-22 23:59 :00 No [id number] Unavailable 50 mg AT BEDTIME 50 mg AT BEDTIME (route: oral) Med Classific ation: Central Nervous System Agents Asmanex HFA 100 mcg/actuati on aerosol inhaler 08-29 00:00: 00 Yes [id number] 2 puff TWICE DAILY 2 puff TWICE DAILY (route: inhalation ) Med Classific ation: Respirato ry Therapy Agents atorvastati n 80 mg tablet 08-29 00:00: 00 Yes [id number] Unavailable 80 mg BEDTIME 80 mg BEDTIME (route: oral) Med Classific ation: Cardiovas cular Therapy Agents carvedilol 25 mg tablet 08-29 00:00: 00 Yes [id number] Unavailable 25 mg TWICE DAILY 25 mg TWICE DAILY (route: oral) Med Classific ation: Cardiovas cular Therapy Agents clopidogrel 75 mg tablet 08-29 00:00: 00 Yes [id number] 75 mg EVERY AM 75 mg EVERY AM (route: oral) Med Classific ation: Hematolog ical Agents docusate sodium 100 mg capsule 08-29 00:00: 00 09-25 23:59 :00 No [id number] Unavailable 100 mg TWICE DAILY 100 mg TWICE DAILY (route: oral) Med Classific ation: Gastroint estinal Therapy Agents escitalopra m 20 mg tablet 08-29 00:00: 00 Yes [id number] Unavailable 20 mg EVERY PM 20 mg EVERY PM (route: oral) Med Classific ation: Central Nervous System Agents FeroSul 325 mg (65 mg iron) tablet 08-29 00:00: 00 09-25 23:59 :00 No [id number] Unavailable 325 mg TWICE DAILY IN THE MORNING AND AT BEDTIME 325 mg TWICE DAILY IN THE MORNING AND AT BEDTIME (route: oral) Med Classific ation: Electroly te Balance-N utritiona l Products gabapentin 800 mg tablet 08-29 00:00: 00 09-22 23:59 :00 No [id number] 800 mg 2 TIMES DAILY 800 mg 2 TIMES DAILY (route: oral) Med Classific ation: Central Nervous System Agents hydralazine 25 mg tablet 08-29 00:00: 00 09-22 23:59 :00 No [id number] Unavailable 25 mg 3 TIMES DAILY 25 mg 3 TIMES DAILY (route: oral) Med Classific ation: Cardiovas cular Therapy Agents hydralazine 50 mg tablet 08-29 00:00: 00 09-25 23:59 :00 No [id number] Unavailable 50 mg THREE TIMES DAILY IN THE MORNING AT 50 mg THREE TIMES DAILY IN THE MORNING AT (route: oral) Med Classific ation: Cardiovas cular Therapy Agents mirtazapine 45 mg tablet 08-29 00:00: 00 Yes [id number] Unavailable 45 mg AT BEDTIME 45 mg AT BEDTIME (route: oral) Med Classific ation: Central Nervous System Agents omeprazole 20 mg capsule,del ayed release 08-29 00:00: 00 Yes [id number] 20 mg TWICE DAILY 20 mg TWICE DAILY (route: oral) Med Classific ation: Gastroint estinal Therapy Agents lisinopril 40 mg tablet 09-25 00:00: 00 Yes [id number] 40 mg DAILY 40 mg DAILY (route: oral) Med Classific ation: Cardiovas cular Therapy Agents metformin 1,000 mg tablet 09-25 00:00: 00 09-22 23:59 :00 No [id number] 1000 mg 2 TIMES DAILY 1000 mg 2 TIMES DAILY (route: oral) Med Classific ation: Endocrine multivitami n tablet 09-25 00:00: 00 Yes [id number] 1 tablet DAILY 1 tablet DAILY (route: oral) Med Classific ation: Electroly te Balance-N utritiona l Products nifedipine ER 60 mg tablet,exte nded release 09-25 00:00: 00 Yes [id number] 60 mg EVERY PM 60 mg EVERY PM (route: oral) Med Classific ation: Cardiovas cular Therapy Agents pioglitazon e 15 mg tablet 09-25 00:00: 00 Yes [id number] 15 mg DAILY 15 mg DAILY (route: oral) Med Classific ation: Endocrine Tresiba FlexTouch U-100 insulin 100 unit/mL (3 mL) subcutaneou s pen 09-25 00:00: 00 Yes [id number] 10 In unit DAILY 10 In unit DAILY (route: subcutaneo ) Med Classific ation: Endocrine aspirin 81 mg tablet 09-22 00:00: 00 Yes [id number] 1 tablet DAILY 1 tablet DAILY (route: oral) Med Classific ation: Hematolog ical Agents docusate sodium 100 mg capsule 09-22 00:00: 00 Yes [id number] 1 capsule 2 TIMES DAILY 1 capsule 2 TIMES DAILY (route: oral) Med Classific ation: Gastroint estinal Therapy Agents ferrous sulfate 325 mg (65 mg iron) tablet 09-22 00:00: 00 Yes [id number] 1 tablet 2 TIMES DAILY 1 tablet 2 TIMES DAILY (route: oral) Med Classific ation: Electroly te Balance-N utritiona l Products isosorbide mononitrate ER 30 mg tablet,exte nded release 24 hr 09-22 00:00: 00 Yes [id number] 1 tablet DAILY 1 tablet DAILY (route: [...] AWARENESS FOR SAFETY AND WILL NOTIFY CLINICAL SILVER HOLLOWARE ASSEMBLER AND PHYSICIAN/PROVIDER WITH ANY CHANGE IN CONDITION. [code = SKILLED NURSE WILL MAINTAIN SITUATIONAL AWARENESS FOR SAFETY AND WILL NOTIFY CLINICAL SILVER HOLLOWARE ASSEMBLER AND PHYSICIAN/PROVIDER WITH ANY CHANGE IN CONDITION.] [...] 2025-01-17 00:00:00 Outpatient RECERTIFIC ATION ERIC EDDY [facility] [id number] 48.39
--- OUTSIDE RECORDS SUMMARY | 2025-01-16 19:00 | XMS_ITS | Clinical Summary ---
Author Organization Unknown Care Team Providers Care Flower Buncher Or Picker Name Role Phone ADILIA FELIPE, VIOLETA Unavailable Unavailable SURJIT DAVID, ERIC Unavailable Unavailable Payers Payer Name Policy Type Policy Number Effective Date Expira tion Date MEDICAID [facility] [id number] Problems Condition Name Condition Details Condition Category Status Onset Date Resolution Date Last Treatment Date Treating Clinician Comments ESSENTIAL (PRIMARY) HYPERTENSION Active 09-21 00:00: 00 ATHSCL HEART DISEASE OF [place] CORONARY ARTERY W/O ANG PCTRS Active 09-21 [...] CIGARETTES, UNCOMPLICATE D Active 09-21 00:00: 00 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 09-21 [...] release 24 hr 805 00:00: 00 Yes [id number] 60 mg AT BEDTIME 60 mg AT BEDTIME (route: oral) Med Classific ation: Cardiovas cular Therapy Agents oxycodone 5 mg tablet 09-04 00:00: 00 11-19 23:59 :00 No [id number] Unavailable 5 mg FIVE TIMES DAILY NEEDED 5 mg FIVE TIMES DAILY NEEDED (route: oral) Med Classific ation: Analgesic , Anti-infl ammatory or Antipyret ic gabapentin 600 mg tablet 09-03 00:00: 00 09-25 23:59 :00 No [id number] 600 mg 2 TIMES DAILY 600 mg 2 TIMES DAILY (route: oral) Med Classific ation: Central Nervous System Agents nicotine 21 mg/24 hr daily transdermal patch 08-30 00:00: 00 Yes [id number] Unavailable 21 mg DAILY 21 mg DAILY (route: transderma l) Med Classific ation: Chemical Dependenc y, Agents to Treat Alcohol Prep Pads 08-29 00:00: 00 05-18 23:59 :00 No [id number] 1 pads, medicat ed DIRECTED THREE TIMES DAILY AND NEEDED 1 pads, medicated DIRECTED THREE TIMES DAILY AND NEEDED (route: topical) Med Classific ation: Antisepti cs and Disinfect ants amitriptyli ne 50 mg tablet 08-29 00:00: 00 09-22 23:59 :00 No [id number] Unavailable 50 mg AT BEDTIME 50 mg AT BEDTIME (route: oral) Med Classific ation: Central Nervous System Agents Asmanex HFA 100 mcg/actuati on aerosol inhaler 08-29 00:00: 00 Yes [id number] 2 puff TWICE DAILY 2 puff TWICE DAILY (route: inhalation ) Med Classific ation: Respirato ry Therapy Agents atorvastati n 80 mg tablet 08-29 00:00: 00 Yes [id number] Unavailable 80 mg BEDTIME 80 mg BEDTIME (route: oral) Med Classific ation: Cardiovas cular Therapy Agents carvedilol 25 mg tablet 08-29 00:00: 00 Yes [id number] Unavailable 25 mg TWICE DAILY 25 mg TWICE DAILY (route: oral) Med Classific ation: Cardiovas cular Therapy Agents clopidogrel 75 mg tablet 08-29 00:00: 00 Yes [id number] 75 mg EVERY AM 75 mg EVERY AM (route: oral) Med Classific ation: Hematolog ical Agents docusate sodium 100 mg capsule 08-29 00:00: 00 09-25 23:59 :00 No [id number] Unavailable 100 mg TWICE DAILY 100 mg TWICE DAILY (route: oral) Med Classific ation: Gastroint estinal Therapy Agents escitalopra m 20 mg tablet 08-29 00:00: 00 Yes [id number] Unavailable 20 mg EVERY PM 20 mg EVERY PM (route: oral) Med Classific ation: Central Nervous System Agents FeroSul 325 mg (65 mg iron) tablet 08-29 00:00: 00 09-25 23:59 :00 No [id number] Unavailable 325 mg TWICE DAILY IN THE MORNING AND AT BEDTIME 325 mg TWICE DAILY IN THE MORNING AND AT BEDTIME (route: oral) Med Classific ation: Electroly te Balance-N utritiona l Products gabapentin 800 mg tablet 08-29 00:00: 00 09-22 23:59 :00 No [id number] 800 mg 2 TIMES DAILY 800 mg 2 TIMES DAILY (route: oral) Med Classific ation: Central Nervous System Agents hydralazine 25 mg tablet 08-29 00:00: 00 09-22 23:59 :00 No [id number] Unavailable 25 mg 3 TIMES DAILY 25 mg 3 TIMES DAILY (route: oral) Med Classific ation: Cardiovas cular Therapy Agents hydralazine 50 mg tablet 08-29 00:00: 00 09-25 23:59 :00 No [id number] Unavailable 50 mg THREE TIMES DAILY IN THE MORNING AT 50 mg THREE TIMES DAILY IN THE MORNING AT (route: oral) Med Classific ation: Cardiovas cular Therapy Agents mirtazapine 45 mg tablet 08-29 00:00: 00 Yes [id number] Unavailable 45 mg AT BEDTIME 45 mg AT BEDTIME (route: oral) Med Classific ation: Central Nervous System Agents omeprazole 20 mg capsule,del ayed release 08-29 00:00: 00 Yes [id number] 20 mg TWICE DAILY 20 mg TWICE DAILY (route: oral) Med Classific ation: Gastroint estinal Therapy Agents lisinopril 40 mg tablet 09-25 00:00: 00 Yes [id number] 40 mg DAILY 40 mg DAILY (route: oral) Med Classific ation: Cardiovas cular Therapy Agents metformin 1,000 mg tablet 09-25 00:00: 00 09-22 23:59 :00 No [id number] 1000 mg 2 TIMES DAILY 1000 mg 2 TIMES DAILY (route: oral) Med Classific ation: Endocrine multivitami n tablet 09-25 00:00: 00 Yes [id number] 1 tablet DAILY 1 tablet DAILY (route: oral) Med Classific ation: Electroly te Balance-N utritiona l Products nifedipine ER 60 mg tablet,exte nded release 09-25 00:00: 00 Yes [id number] 60 mg EVERY PM 60 mg EVERY PM (route: oral) Med Classific ation: Cardiovas cular Therapy Agents pioglitazon e 15 mg tablet 09-25 00:00: 00 Yes [id number] 15 mg DAILY 15 mg DAILY (route: oral) Med Classific ation: Endocrine Tresiba FlexTouch U-100 insulin 100 unit/mL (3 mL) subcutaneou s pen 09-25 00:00: 00 Yes [id number] 10 In unit DAILY 10 In unit DAILY (route: subcutaneo ) Med Classific ation: Endocrine aspirin 81 mg tablet 09-22 00:00: 00 Yes [id number] 1 tablet DAILY 1 tablet DAILY (route: oral) Med Classific ation: Hematolog ical Agents docusate sodium 100 mg capsule 09-22 00:00: 00 Yes [id number] 1 capsule 2 TIMES DAILY 1 capsule 2 TIMES DAILY (route: oral) Med Classific ation: Gastroint estinal Therapy Agents ferrous sulfate 325 mg (65 mg iron) tablet 09-22 00:00: 00 Yes [id number] 1 tablet 2 TIMES DAILY 1 tablet 2 TIMES DAILY (route: oral) Med Classific ation: Electroly te Balance-N utritiona l Products isosorbide mononitrate ER 30 mg tablet,exte nded release 24 hr 09-22 00:00: 00 Yes [id number] 1 tablet DAILY 1 tablet DAILY (route: [...] AWARENESS FOR SAFETY AND WILL NOTIFY CLINICAL DREDGE LEVER OPERATOR AND PHYSICIAN/PROVIDER WITH ANY CHANGE IN CONDITION. [code = SKILLED NURSE WILL MAINTAIN SITUATIONAL AWARENESS FOR SAFETY AND WILL NOTIFY CLINICAL DREDGE LEVER OPERATOR AND PHYSICIAN/PROVIDER WITH ANY CHANGE IN [...] End Date/Time Encounter Type Admission Type Attending [facility] Care Department Encounter ID Discharge Date Discharge Status Discharge Condition Discharge Reason Percent Goals Met 2024-11-19 00:00:00 2025-01-17 00:00:00 Outpatient RECERTIFIC ATION ERIC EDDY [facility] [id number] 48.39
--- OUTSIDE RECORDS SUMMARY | 2025-01-16 19:00 | XMS_ITS | Clinical Summary ---
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 09-21 00:00: [...] release 24 hr 805 00:00: 00 Yes [id number] 60 mg AT BEDTIME 60 mg AT BEDTIME (route: oral) Med Classific ation: Cardiovas cular Therapy Agents oxycodone 5 mg tablet 09-04 00:00: 00 11-19 23:59 :00 No [id number] Unavailable 5 mg FIVE TIMES DAILY NEEDED 5 mg FIVE TIMES DAILY NEEDED (route: oral) Med Classific ation: Analgesic , Anti-infl ammatory or Antipyret ic gabapentin 600 mg tablet 09-03 00:00: 00 09-25 23:59 :00 No [id number] 600 mg 2 TIMES DAILY 600 mg 2 TIMES DAILY (route: oral) Med Classific ation: Central Nervous System Agents nicotine 21 mg/24 hr daily transdermal patch 08-30 00:00: 00 Yes [id number] Unavailable 21 mg DAILY 21 mg DAILY (route: transderma l) Med Classific ation: Chemical Dependenc y, Agents to Treat Alcohol Prep Pads 08-29 00:00: 00 05-18 23:59 :00 No [id number] 1 pads, medicat ed DIRECTED THREE TIMES DAILY AND NEEDED 1 pads, medicated DIRECTED THREE TIMES DAILY AND NEEDED (route: topical) Med Classific ation: Antisepti cs and Disinfect ants amitriptyli ne 50 mg tablet 08-29 00:00: 00 09-22 23:59 :00 No [id number] Unavailable 50 mg AT BEDTIME 50 mg AT BEDTIME (route: oral) Med Classific ation: Central Nervous System Agents Asmanex HFA 100 mcg/actuati on aerosol inhaler 08-29 00:00: 00 Yes [id number] 2 puff TWICE DAILY 2 puff TWICE DAILY (route: inhalation ) Med Classific ation: Respirato ry Therapy Agents atorvastati n 80 mg tablet 08-29 00:00: 00 Yes [id number] Unavailable 80 mg BEDTIME 80 mg BEDTIME (route: oral) Med Classific ation: Cardiovas cular Therapy Agents carvedilol 25 mg tablet 08-29 00:00: 00 Yes [id number] Unavailable 25 mg TWICE DAILY 25 mg TWICE DAILY (route: oral) Med Classific ation: Cardiovas cular Therapy Agents clopidogrel 75 mg tablet 08-29 00:00: 00 Yes [id number] 75 mg EVERY AM 75 mg EVERY AM (route: oral) Med Classific ation: Hematolog ical Agents docusate sodium 100 mg capsule 08-29 00:00: 00 09-25 23:59 :00 No [id number] Unavailable 100 mg TWICE DAILY 100 mg TWICE DAILY (route: oral) Med Classific ation: Gastroint estinal Therapy Agents escitalopra m 20 mg tablet 08-29 00:00: 00 Yes [id number] Unavailable 20 mg EVERY PM 20 mg EVERY PM (route: oral) Med Classific ation: Central Nervous System Agents FeroSul 325 mg (65 mg iron) tablet 08-29 00:00: 00 09-25 23:59 :00 No [id number] Unavailable 325 mg TWICE DAILY IN THE MORNING AND AT BEDTIME 325 mg TWICE DAILY IN THE MORNING AND AT BEDTIME (route: oral) Med Classific ation: Electroly te Balance-N utritiona l Products gabapentin 800 mg tablet 08-29 00:00: 00 09-22 23:59 :00 No [id number] 800 mg 2 TIMES DAILY 800 mg 2 TIMES DAILY (route: oral) Med Classific ation: Central Nervous System Agents hydralazine 25 mg tablet 08-29 00:00: 00 09-22 23:59 :00 No [id number] Unavailable 25 mg 3 TIMES DAILY 25 mg 3 TIMES DAILY (route: oral) Med Classific ation: Cardiovas cular Therapy Agents hydralazine 50 mg tablet 08-29 00:00: 00 09-25 23:59 :00 No [id number] Unavailable 50 mg THREE TIMES DAILY IN THE MORNING AT 50 mg THREE TIMES DAILY IN THE MORNING AT (route: oral) Med Classific ation: Cardiovas cular Therapy Agents mirtazapine 45 mg tablet 08-29 00:00: 00 Yes [id number] Unavailable 45 mg AT BEDTIME 45 mg AT BEDTIME (route: oral) Med Classific ation: Central Nervous System Agents omeprazole 20 mg capsule,del ayed release 08-29 00:00: 00 Yes [id number] 20 mg TWICE DAILY 20 mg TWICE DAILY (route: oral) Med Classific ation: Gastroint estinal Therapy Agents lisinopril 40 mg tablet 09-25 00:00: 00 Yes [id number] 40 mg DAILY 40 mg DAILY (route: oral) Med Classific ation: Cardiovas cular Therapy Agents metformin 1,000 mg tablet 09-25 00:00: 00 09-22 23:59 :00 No [id number] 1000 mg 2 TIMES DAILY 1000 mg 2 TIMES DAILY (route: oral) Med Classific ation: Endocrine multivitami n tablet 09-25 00:00: 00 Yes [id number] 1 tablet DAILY 1 tablet DAILY (route: oral) Med Classific ation: Electroly te Balance-N utritiona l Products nifedipine ER 60 mg tablet,exte nded release 09-25 00:00: 00 Yes [id number] 60 mg EVERY PM 60 mg EVERY PM (route: oral) Med Classific ation: Cardiovas cular Therapy Agents pioglitazon e 15 mg tablet 09-25 00:00: 00 Yes [id number] 15 mg DAILY 15 mg DAILY (route: oral) Med Classific ation: Endocrine Tresiba FlexTouch U-100 insulin 100 unit/mL (3 mL) subcutaneou s pen 09-25 00:00: 00 Yes [id number] 10 In unit DAILY 10 In unit DAILY (route: subcutaneo ) Med Classific ation: Endocrine aspirin 81 mg tablet 09-22 00:00: 00 Yes [id number] 1 tablet DAILY 1 tablet DAILY (route: oral) Med Classific ation: Hematolog ical Agents docusate sodium 100 mg capsule 09-22 00:00: 00 Yes [id number] 1 capsule 2 TIMES DAILY 1 capsule 2 TIMES DAILY (route: oral) Med Classific ation: Gastroint estinal Therapy Agents ferrous sulfate 325 mg (65 mg iron) tablet 09-22 00:00: 00 Yes [id number] 1 tablet 2 TIMES DAILY 1 tablet 2 TIMES DAILY (route: oral) Med Classific ation: Electroly te Balance-N utritiona l Products isosorbide mononitrate ER 30 mg tablet,exte nded release 24 hr 09-22 00:00: 00 Yes [id number] 1 tablet DAILY 1 tablet DAILY (route: [...] AWARENESS FOR SAFETY AND WILL NOTIFY CLINICAL PSYCHIATRIC ORDERLY AND PHYSICIAN/PROVIDER WITH ANY CHANGE IN CONDITION. [code = SKILLED NURSE WILL MAINTAIN SITUATIONAL AWARENESS FOR SAFETY AND WILL NOTIFY CLINICAL PSYCHIATRIC ORDERLY AND PHYSICIAN/PROVIDER WITH ANY CHANGE IN CONDITION.] [...] End Date/Time Encounter Type Admission Type Attending [facility] Care Department Encounter ID Discharge Date Discharge Status Discharge Condition Discharge Reason Percent Goals Met 2024-11-19 00:00:00 2025-01-17 00:00:00 Outpatient RECERTIFIC ATION ERIC EDDY [facility] [id number] 48.39
--- OUTSIDE RECORDS SUMMARY | 2025-01-16 19:00 | XMS_ITS | Clinical Summary ---
Author Organization Unknown Care Team Providers Care Piping Blocker Name Role Phone ADILIA FELIPE, VIOLETA Unavailable Unavailable SURJIT DAVID, ERIC Unavailable Unavailable Payers Payer Name Policy Type Policy Number Effective Date Expira tion Date MEDICAID [facility] [id number] Problems Condition Name Condition Details Condition Category Status Onset Date Resolution Date Last Treatment Date Treating Clinician Comments ESSENTIAL (PRIMARY) HYPERTENSION Active 09-21 00:00: 00 ATHSCL HEART DISEASE OF [place] CORONARY ARTERY W/O ANG PCTRS Active 09-21 [...] CIGARETTES, UNCOMPLICATE D Active 09-21 00:00: 00 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 09-21 [...] release 24 hr 805 00:00: 00 Yes [id number] 60 mg AT BEDTIME 60 mg AT BEDTIME (route: oral) Med Classific ation: Cardiovas cular Therapy Agents oxycodone 5 mg tablet 09-04 00:00: 00 11-19 23:59 :00 No [id number] Unavailable 5 mg FIVE TIMES DAILY NEEDED 5 mg FIVE TIMES DAILY NEEDED (route: oral) Med Classific ation: Analgesic , Anti-infl ammatory or Antipyret ic gabapentin 600 mg tablet 09-03 00:00: 00 09-25 23:59 :00 No [id number] 600 mg 2 TIMES DAILY 600 mg 2 TIMES DAILY (route: oral) Med Classific ation: Central Nervous System Agents nicotine 21 mg/24 hr daily transdermal patch 08-30 00:00: 00 Yes [id number] Unavailable 21 mg DAILY 21 mg DAILY (route: transderma l) Med Classific ation: Chemical Dependenc y, Agents to Treat Alcohol Prep Pads 08-29 00:00: 00 05-18 23:59 :00 No [id number] 1 pads, medicat ed DIRECTED THREE TIMES DAILY AND NEEDED 1 pads, medicated DIRECTED THREE TIMES DAILY AND NEEDED (route: topical) Med Classific ation: Antisepti cs and Disinfect ants amitriptyli ne 50 mg tablet 08-29 00:00: 00 09-22 23:59 :00 No [id number] Unavailable 50 mg AT BEDTIME 50 mg AT BEDTIME (route: oral) Med Classific ation: Central Nervous System Agents Asmanex HFA 100 mcg/actuati on aerosol inhaler 08-29 00:00: 00 Yes [id number] 2 puff TWICE DAILY 2 puff TWICE DAILY (route: inhalation ) Med Classific ation: Respirato ry Therapy Agents atorvastati n 80 mg tablet 08-29 00:00: 00 Yes [id number] Unavailable 80 mg BEDTIME 80 mg BEDTIME (route: oral) Med Classific ation: Cardiovas cular Therapy Agents carvedilol 25 mg tablet 08-29 00:00: 00 Yes [id number] Unavailable 25 mg TWICE DAILY 25 mg TWICE DAILY (route: oral) Med Classific ation: Cardiovas cular Therapy Agents clopidogrel 75 mg tablet 08-29 00:00: 00 Yes [id number] 75 mg EVERY AM 75 mg EVERY AM (route: oral) Med Classific ation: Hematolog ical Agents docusate sodium 100 mg capsule 08-29 00:00: 00 09-25 23:59 :00 No [id number] Unavailable 100 mg TWICE DAILY 100 mg TWICE DAILY (route: oral) Med Classific ation: Gastroint estinal Therapy Agents escitalopra m 20 mg tablet 08-29 00:00: 00 Yes [id number] Unavailable 20 mg EVERY PM 20 mg EVERY PM (route: oral) Med Classific ation: Central Nervous System Agents FeroSul 325 mg (65 mg iron) tablet 08-29 00:00: 00 09-25 23:59 :00 No [id number] Unavailable 325 mg TWICE DAILY IN THE MORNING AND AT BEDTIME 325 mg TWICE DAILY IN THE MORNING AND AT BEDTIME (route: oral) Med Classific ation: Electroly te Balance-N utritiona l Products gabapentin 800 mg tablet 08-29 00:00: 00 09-22 23:59 :00 No [id number] 800 mg 2 TIMES DAILY 800 mg 2 TIMES DAILY (route: oral) Med Classific ation: Central Nervous System Agents hydralazine 25 mg tablet 08-29 00:00: 00 09-22 23:59 :00 No [id number] Unavailable 25 mg 3 TIMES DAILY 25 mg 3 TIMES DAILY (route: oral) Med Classific ation: Cardiovas cular Therapy Agents hydralazine 50 mg tablet 08-29 00:00: 00 09-25 23:59 :00 No [id number] Unavailable 50 mg THREE TIMES DAILY IN THE MORNING AT 50 mg THREE TIMES DAILY IN THE MORNING AT (route: oral) Med Classific ation: Cardiovas cular Therapy Agents mirtazapine 45 mg tablet 08-29 00:00: 00 Yes [id number] Unavailable 45 mg AT BEDTIME 45 mg AT BEDTIME (route: oral) Med Classific ation: Central Nervous System Agents omeprazole 20 mg capsule,del ayed release 08-29 00:00: 00 Yes [id number] 20 mg TWICE DAILY 20 mg TWICE DAILY (route: oral) Med Classific ation: Gastroint estinal Therapy Agents lisinopril 40 mg tablet 09-25 00:00: 00 Yes [id number] 40 mg DAILY 40 mg DAILY (route: oral) Med Classific ation: Cardiovas cular Therapy Agents metformin 1,000 mg tablet 09-25 00:00: 00 09-22 23:59 :00 No [id number] 1000 mg 2 TIMES DAILY 1000 mg 2 TIMES DAILY (route: oral) Med Classific ation: Endocrine multivitami n tablet 09-25 00:00: 00 Yes [id number] 1 tablet DAILY 1 tablet DAILY (route: oral) Med Classific ation: Electroly te Balance-N utritiona l Products nifedipine ER 60 mg tablet,exte nded release 09-25 00:00: 00 Yes [id number] 60 mg EVERY PM 60 mg EVERY PM (route: oral) Med Classific ation: Cardiovas cular Therapy Agents pioglitazon e 15 mg tablet 09-25 00:00: 00 Yes [id number] 15 mg DAILY 15 mg DAILY (route: oral) Med Classific ation: Endocrine Tresiba FlexTouch U-100 insulin 100 unit/mL (3 mL) subcutaneou s pen 09-25 00:00: 00 Yes [id number] 10 In unit DAILY 10 In unit DAILY (route: subcutaneo ) Med Classific ation: Endocrine aspirin 81 mg tablet 09-22 00:00: 00 Yes [id number] 1 tablet DAILY 1 tablet DAILY (route: oral) Med Classific ation: Hematolog ical Agents docusate sodium 100 mg capsule 09-22 00:00: 00 Yes [id number] 1 capsule 2 TIMES DAILY 1 capsule 2 TIMES DAILY (route: oral) Med Classific ation: Gastroint estinal Therapy Agents ferrous sulfate 325 mg (65 mg iron) tablet 09-22 00:00: 00 Yes [id number] 1 tablet 2 TIMES DAILY 1 tablet 2 TIMES DAILY (route: oral) Med Classific ation: Electroly te Balance-N utritiona l Products isosorbide mononitrate ER 30 mg tablet,exte nded release 24 hr 09-22 00:00: 00 Yes [id number] 1 tablet DAILY 1 tablet DAILY (route: [...] AWARENESS FOR SAFETY AND WILL NOTIFY CLINICAL REMOTE SENSING SCIENTIST AND PHYSICIAN/PROVIDER WITH ANY CHANGE IN CONDITION. [code = SKILLED NURSE WILL MAINTAIN SITUATIONAL AWARENESS FOR SAFETY AND WILL NOTIFY CLINICAL REMOTE SENSING SCIENTIST AND PHYSICIAN/PROVIDER WITH ANY CHANGE IN [...] ERIC EDDY [facility] [id number] 48.39
--- OUTSIDE RECORDS SUMMARY | 2025-01-16 19:00 | XMS_ITS | Clinical Summary ---
Author Organization Unknown Care Team Providers Care Envelope Sealing Machine Operator Name Role Phone ADILIA FELIPE, VIOLETA Unavailable Unavailable SURJIT DAVID, ERIC Unavailable Unavailable Payers Payer Name Policy Type Policy Number Effective Date Expira tion Date MEDICAID [facility] [id number] Problems Condition Name Condition Details Condition Category Status Onset Date Resolution Date Last Treatment Date Treating Clinician Comments ESSENTIAL (PRIMARY) HYPERTENSION Active 09-21 00:00: 00 ATHSCL HEART DISEASE OF [place] CORONARY ARTERY W/O ANG PCTRS Active [...] CIGARETTES, UNCOMPLICATE D Active 09-21 00:00: 00 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 09-21 00:00: [...] release 24 hr 805 00:00: 00 Yes [id number] 60 mg AT BEDTIME 60 mg AT BEDTIME (route: oral) Med Classific ation: Cardiovas cular Therapy Agents oxycodone 5 mg tablet 09-04 00:00: 00 11-19 23:59 :00 No [id number] Unavailable 5 mg FIVE TIMES DAILY NEEDED 5 mg FIVE TIMES DAILY NEEDED (route: oral) Med Classific ation: Analgesic , Anti-infl ammatory or Antipyret ic gabapentin 600 mg tablet 09-03 00:00: 00 09-25 23:59 :00 No [id number] 600 mg 2 TIMES DAILY 600 mg 2 TIMES DAILY (route: oral) Med Classific ation: Central Nervous System Agents nicotine 21 mg/24 hr daily transdermal patch 08-30 00:00: 00 Yes [id number] Unavailable 21 mg DAILY 21 mg DAILY (route: transderma l) Med Classific ation: Chemical Dependenc y, Agents to Treat Alcohol Prep Pads 08-29 00:00: 00 05-18 23:59 :00 No [id number] 1 pads, medicat ed DIRECTED THREE TIMES DAILY AND NEEDED 1 pads, medicated DIRECTED THREE TIMES DAILY AND NEEDED (route: topical) Med Classific ation: Antisepti cs and Disinfect ants amitriptyli ne 50 mg tablet 08-29 00:00: 00 09-22 23:59 :00 No [id number] Unavailable 50 mg AT BEDTIME 50 mg AT BEDTIME (route: oral) Med Classific ation: Central Nervous System Agents Asmanex HFA 100 mcg/actuati on aerosol inhaler 08-29 00:00: 00 Yes [id number] 2 puff TWICE DAILY 2 puff TWICE DAILY (route: inhalation ) Med Classific ation: Respirato ry Therapy Agents atorvastati n 80 mg tablet 08-29 00:00: 00 Yes [id number] Unavailable 80 mg BEDTIME 80 mg BEDTIME (route: oral) Med Classific ation: Cardiovas cular Therapy Agents carvedilol 25 mg tablet 08-29 00:00: 00 Yes [id number] Unavailable 25 mg TWICE DAILY 25 mg TWICE DAILY (route: oral) Med Classific ation: Cardiovas cular Therapy Agents clopidogrel 75 mg tablet 08-29 00:00: 00 Yes [id number] 75 mg EVERY AM 75 mg EVERY AM (route: oral) Med Classific ation: Hematolog ical Agents docusate sodium 100 mg capsule 08-29 00:00: 00 09-25 23:59 :00 No [id number] Unavailable 100 mg TWICE DAILY 100 mg TWICE DAILY (route: oral) Med Classific ation: Gastroint estinal Therapy Agents escitalopra m 20 mg tablet 08-29 00:00: 00 Yes [id number] Unavailable 20 mg EVERY PM 20 mg EVERY PM (route: oral) Med Classific ation: Central Nervous System Agents FeroSul 325 mg (65 mg iron) tablet 08-29 00:00: 00 09-25 23:59 :00 No [id number] Unavailable 325 mg TWICE DAILY IN THE MORNING AND AT BEDTIME 325 mg TWICE DAILY IN THE MORNING AND AT BEDTIME (route: oral) Med Classific ation: Electroly te Balance-N utritiona l Products gabapentin 800 mg tablet 08-29 00:00: 00 09-22 23:59 :00 No [id number] 800 mg 2 TIMES DAILY 800 mg 2 TIMES DAILY (route: oral) Med Classific ation: Central Nervous System Agents hydralazine 25 mg tablet 08-29 00:00: 00 09-22 23:59 :00 No [id number] Unavailable 25 mg 3 TIMES DAILY 25 mg 3 TIMES DAILY (route: oral) Med Classific ation: Cardiovas cular Therapy Agents hydralazine 50 mg tablet 08-29 00:00: 00 09-25 23:59 :00 No [id number] Unavailable 50 mg THREE TIMES DAILY IN THE MORNING AT 50 mg THREE TIMES DAILY IN THE MORNING AT (route: oral) Med Classific ation: Cardiovas cular Therapy Agents mirtazapine 45 mg tablet 08-29 00:00: 00 Yes [id number] Unavailable 45 mg AT BEDTIME 45 mg AT BEDTIME (route: oral) Med Classific ation: Central Nervous System Agents omeprazole 20 mg capsule,del ayed release 08-29 00:00: 00 Yes [id number] 20 mg TWICE DAILY 20 mg TWICE DAILY (route: oral) Med Classific ation: Gastroint estinal Therapy Agents lisinopril 40 mg tablet 09-25 00:00: 00 Yes [id number] 40 mg DAILY 40 mg DAILY (route: oral) Med Classific ation: Cardiovas cular Therapy Agents metformin 1,000 mg tablet 09-25 00:00: 00 09-22 23:59 :00 No [id number] 1000 mg 2 TIMES DAILY 1000 mg 2 TIMES DAILY (route: oral) Med Classific ation: Endocrine multivitami n tablet 09-25 00:00: 00 Yes [id number] 1 tablet DAILY 1 tablet DAILY (route: oral) Med Classific ation: Electroly te Balance-N utritiona l Products nifedipine ER 60 mg tablet,exte nded release 09-25 00:00: 00 Yes [id number] 60 mg EVERY PM 60 mg EVERY PM (route: oral) Med Classific ation: Cardiovas cular Therapy Agents pioglitazon e 15 mg tablet 09-25 00:00: 00 Yes [id number] 15 mg DAILY 15 mg DAILY (route: oral) Med Classific ation: Endocrine Tresiba FlexTouch U-100 insulin 100 unit/mL (3 mL) subcutaneou s pen 09-25 00:00: 00 Yes [id number] 10 In unit DAILY 10 In unit DAILY (route: subcutaneo ) Med Classific ation: Endocrine aspirin 81 mg tablet 09-22 00:00: 00 Yes [id number] 1 tablet DAILY 1 tablet DAILY (route: oral) Med Classific ation: Hematolog ical Agents docusate sodium 100 mg capsule 09-22 00:00: 00 Yes [id number] 1 capsule 2 TIMES DAILY 1 capsule 2 TIMES DAILY (route: oral) Med Classific ation: Gastroint estinal Therapy Agents ferrous sulfate 325 mg (65 mg iron) tablet 09-22 00:00: 00 Yes [id number] 1 tablet 2 TIMES DAILY 1 tablet 2 TIMES DAILY (route: oral) Med Classific ation: Electroly te Balance-N utritiona l Products isosorbide mononitrate ER 30 mg tablet,exte nded release 24 hr 09-22 00:00: 00 Yes [id number] 1 tablet DAILY 1 tablet DAILY (route: [...] AWARENESS FOR SAFETY AND WILL NOTIFY CLINICAL CELLULOSE INSULATION HELPER AND PHYSICIAN/PROVIDER WITH ANY CHANGE IN CONDITION. [code = SKILLED NURSE WILL MAINTAIN SITUATIONAL AWARENESS FOR SAFETY AND WILL NOTIFY CLINICAL CELLULOSE INSULATION HELPER AND PHYSICIAN/PROVIDER WITH ANY CHANGE IN [...] End Date/Time Encounter Type Admission Type Attending [facility] Care Department Encounter ID Discharge Date Discharge Status Discharge Condition Discharge Reason Percent Goals Met 2024-11-19 00:00:00 2025-01-17 00:00:00 Outpatient RECERTIFIC ATION ERIC EDDY [facility] [id number] 48.39
--- OUTSIDE RECORDS SUMMARY | 2025-01-16 19:00 | XMS_ITS | Clinical Summary ---
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 Role Phone ADILIA FELIPE, VIOLETA Unavailable Unavailable SURJIT DAVID, ERIC Unavailable Unavailable Payers Payer Name Policy Type Policy Number Effective Date Expira tion Date MEDICAID [facility] [id number] Problems Condition Name Condition Details Condition Category Status Onset Date Resolution Date Last Treatment Date Treating Clinician Comments ESSENTIAL (PRIMARY) HYPERTENSION Active 09-21 00:00: 00 ATHSCL HEART DISEASE OF [place] CORONARY ARTERY W/O ANG PCTRS Active 09-21 [...] CIGARETTES, UNCOMPLICATE D Active 09-21 00:00: 00 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 09-21 00:00: [...] release 24 hr 805 00:00: 00 Yes [id number] 60 mg AT BEDTIME 60 mg AT BEDTIME (route: oral) Med Classific ation: Cardiovas cular Therapy Agents oxycodone 5 mg tablet 09-04 00:00: 00 11-19 23:59 :00 No [id number] Unavailable 5 mg FIVE TIMES DAILY NEEDED 5 mg FIVE TIMES DAILY NEEDED (route: oral) Med Classific ation: Analgesic , Anti-infl ammatory or Antipyret ic gabapentin 600 mg tablet 09-03 00:00: 00 09-25 23:59 :00 No [id number] 600 mg 2 TIMES DAILY 600 mg 2 TIMES DAILY (route: oral) Med Classific ation: Central Nervous System Agents nicotine 21 mg/24 hr daily transdermal patch 08-30 00:00: 00 Yes [id number] Unavailable 21 mg DAILY 21 mg DAILY (route: transderma l) Med Classific ation: Chemical Dependenc y, Agents to Treat Alcohol Prep Pads 08-29 00:00: 00 05-18 23:59 :00 No [id number] 1 pads, medicat ed DIRECTED THREE TIMES DAILY AND NEEDED 1 pads, medicated DIRECTED THREE TIMES DAILY AND NEEDED (route: topical) Med Classific ation: Antisepti cs and Disinfect ants amitriptyli ne 50 mg tablet 08-29 00:00: 00 09-22 23:59 :00 No [id number] Unavailable 50 mg AT BEDTIME 50 mg AT BEDTIME (route: oral) Med Classific ation: Central Nervous System Agents Asmanex HFA 100 mcg/actuati on aerosol inhaler 08-29 00:00: 00 Yes [id number] 2 puff TWICE DAILY 2 puff TWICE DAILY (route: inhalation ) Med Classific ation: Respirato ry Therapy Agents atorvastati n 80 mg tablet 08-29 00:00: 00 Yes [id number] Unavailable 80 mg BEDTIME 80 mg BEDTIME (route: oral) Med Classific ation: Cardiovas cular Therapy Agents carvedilol 25 mg tablet 08-29 00:00: 00 Yes [id number] Unavailable 25 mg TWICE DAILY 25 mg TWICE DAILY (route: oral) Med Classific ation: Cardiovas cular Therapy Agents clopidogrel 75 mg tablet 08-29 00:00: 00 Yes [id number] 75 mg EVERY AM 75 mg EVERY AM (route: oral) Med Classific ation: Hematolog ical Agents docusate sodium 100 mg capsule 08-29 00:00: 00 09-25 23:59 :00 No [id number] Unavailable 100 mg TWICE DAILY 100 mg TWICE DAILY (route: oral) Med Classific ation: Gastroint estinal Therapy Agents escitalopra m 20 mg tablet 08-29 00:00: 00 Yes [id number] Unavailable 20 mg EVERY PM 20 mg EVERY PM (route: oral) Med Classific ation: Central Nervous System Agents FeroSul 325 mg (65 mg iron) tablet 08-29 00:00: 00 09-25 23:59 :00 No [id number] Unavailable 325 mg TWICE DAILY IN THE MORNING AND AT BEDTIME 325 mg TWICE DAILY IN THE MORNING AND AT BEDTIME (route: oral) Med Classific ation: Electroly te Balance-N utritiona l Products gabapentin 800 mg tablet 08-29 00:00: 00 09-22 23:59 :00 No [id number] 800 mg 2 TIMES DAILY 800 mg 2 TIMES DAILY (route: oral) Med Classific ation: Central Nervous System Agents hydralazine 25 mg tablet 08-29 00:00: 00 09-22 23:59 :00 No [id number] Unavailable 25 mg 3 TIMES DAILY 25 mg 3 TIMES DAILY (route: oral) Med Classific ation: Cardiovas cular Therapy Agents hydralazine 50 mg tablet 08-29 00:00: 00 09-25 23:59 :00 No [id number] Unavailable 50 mg THREE TIMES DAILY IN THE MORNING AT 50 mg THREE TIMES DAILY IN THE MORNING AT (route: oral) Med Classific ation: Cardiovas cular Therapy Agents mirtazapine 45 mg tablet 08-29 00:00: 00 Yes [id number] Unavailable 45 mg AT BEDTIME 45 mg AT BEDTIME (route: oral) Med Classific ation: Central Nervous System Agents omeprazole 20 mg capsule,del ayed release 08-29 00:00: 00 Yes [id number] 20 mg TWICE DAILY 20 mg TWICE DAILY (route: oral) Med Classific ation: Gastroint estinal Therapy Agents lisinopril 40 mg tablet 09-25 00:00: 00 Yes [id number] 40 mg DAILY 40 mg DAILY (route: oral) Med Classific ation: Cardiovas cular Therapy Agents metformin 1,000 mg tablet 09-25 00:00: 00 09-22 23:59 :00 No [id number] 1000 mg 2 TIMES DAILY 1000 mg 2 TIMES DAILY (route: oral) Med Classific ation: Endocrine multivitami n tablet 09-25 00:00: 00 Yes [id number] 1 tablet DAILY 1 tablet DAILY (route: oral) Med Classific ation: Electroly te Balance-N utritiona l Products nifedipine ER 60 mg tablet,exte nded release 09-25 00:00: 00 Yes [id number] 60 mg EVERY PM 60 mg EVERY PM (route: oral) Med Classific ation: Cardiovas cular Therapy Agents pioglitazon e 15 mg tablet 09-25 00:00: 00 Yes [id number] 15 mg DAILY 15 mg DAILY (route: oral) Med Classific ation: Endocrine Tresiba FlexTouch U-100 insulin 100 unit/mL (3 mL) subcutaneou s pen 09-25 00:00: 00 Yes [id number] 10 In unit DAILY 10 In unit DAILY (route: subcutaneo ) Med Classific ation: Endocrine aspirin 81 mg tablet 09-22 00:00: 00 Yes [id number] 1 tablet DAILY 1 tablet DAILY (route: oral) Med Classific ation: Hematolog ical Agents docusate sodium 100 mg capsule 09-22 00:00: 00 Yes [id number] 1 capsule 2 TIMES DAILY 1 capsule 2 TIMES DAILY (route: oral) Med Classific ation: Gastroint estinal Therapy Agents ferrous sulfate 325 mg (65 mg iron) tablet 09-22 00:00: 00 Yes [id number] 1 tablet 2 TIMES DAILY 1 tablet 2 TIMES DAILY (route: oral) Med Classific ation: Electroly te Balance-N utritiona l Products isosorbide mononitrate ER 30 mg tablet,exte nded release 24 hr 09-22 00:00: 00 Yes [id number] 1 tablet DAILY 1 tablet DAILY (route: [...] AWARENESS FOR SAFETY AND WILL NOTIFY CLINICAL CESSPOOL CLEANER AND PHYSICIAN/PROVIDER WITH ANY CHANGE IN CONDITION. [code = SKILLED NURSE WILL MAINTAIN SITUATIONAL AWARENESS FOR SAFETY AND WILL NOTIFY CLINICAL CESSPOOL CLEANER AND PHYSICIAN/PROVIDER WITH ANY CHANGE IN [...] Outpatient RECERTIFIC ATION ERIC EDDY [facility] [id number] 48.39
--- OUTSIDE RECORDS SUMMARY | 2025-01-16 19:00 | XMS_ITS | Clinical Summary ---
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 Role Phone ADILIA FELIPE, VIOLETA Unavailable Unavailable SURJIT DAVID, ERIC Unavailable Unavailable Payers Payer Name Policy Type Policy Number Effective Date Expira tion Date MEDICAID [facility] [id number] Problems Condition Name Condition Details Condition Category Status Onset Date Resolution Date Last Treatment Date Treating Clinician Comments ESSENTIAL (PRIMARY) HYPERTENSION Active 09-21 00:00: 00 ATHSCL HEART DISEASE OF [place] CORONARY ARTERY W/O ANG PCTRS Active 09-21 [...] CIGARETTES, UNCOMPLICATE D Active 09-21 00:00: 00 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 09-21 00:00: [...] release 24 hr 805 00:00: 00 Yes [id number] 60 mg AT BEDTIME 60 mg AT BEDTIME (route: oral) Med Classific ation: Cardiovas cular Therapy Agents oxycodone 5 mg tablet 09-04 00:00: 00 11-19 23:59 :00 No [id number] Unavailable 5 mg FIVE TIMES DAILY NEEDED 5 mg FIVE TIMES DAILY NEEDED (route: oral) Med Classific ation: Analgesic , Anti-infl ammatory or Antipyret ic gabapentin 600 mg tablet 09-03 00:00: 00 09-25 23:59 :00 No [id number] 600 mg 2 TIMES DAILY 600 mg 2 TIMES DAILY (route: oral) Med Classific ation: Central Nervous System Agents nicotine 21 mg/24 hr daily transdermal patch 08-30 00:00: 00 Yes [id number] Unavailable 21 mg DAILY 21 mg DAILY (route: transderma l) Med Classific ation: Chemical Dependenc y, Agents to Treat Alcohol Prep Pads 08-29 00:00: 00 05-18 23:59 :00 No [id number] 1 pads, medicat ed DIRECTED THREE TIMES DAILY AND NEEDED 1 pads, medicated DIRECTED THREE TIMES DAILY AND NEEDED (route: topical) Med Classific ation: Antisepti cs and Disinfect ants amitriptyli ne 50 mg tablet 08-29 00:00: 00 09-22 23:59 :00 No [id number] Unavailable 50 mg AT BEDTIME 50 mg AT BEDTIME (route: oral) Med Classific ation: Central Nervous System Agents Asmanex HFA 100 mcg/actuati on aerosol inhaler 08-29 00:00: 00 Yes [id number] 2 puff TWICE DAILY 2 puff TWICE DAILY (route: inhalation ) Med Classific ation: Respirato ry Therapy Agents atorvastati n 80 mg tablet 08-29 00:00: 00 Yes [id number] Unavailable 80 mg BEDTIME 80 mg BEDTIME (route: oral) Med Classific ation: Cardiovas cular Therapy Agents carvedilol 25 mg tablet 08-29 00:00: 00 Yes [id number] Unavailable 25 mg TWICE DAILY 25 mg TWICE DAILY (route: oral) Med Classific ation: Cardiovas cular Therapy Agents clopidogrel 75 mg tablet 08-29 00:00: 00 Yes [id number] 75 mg EVERY AM 75 mg EVERY AM (route: oral) Med Classific ation: Hematolog ical Agents docusate sodium 100 mg capsule 08-29 00:00: 00 09-25 23:59 :00 No [id number] Unavailable 100 mg TWICE DAILY 100 mg TWICE DAILY (route: oral) Med Classific ation: Gastroint estinal Therapy Agents escitalopra m 20 mg tablet 08-29 00:00: 00 Yes [id number] Unavailable 20 mg EVERY PM 20 mg EVERY PM (route: oral) Med Classific ation: Central Nervous System Agents FeroSul 325 mg (65 mg iron) tablet 08-29 00:00: 00 09-25 23:59 :00 No [id number] Unavailable 325 mg TWICE DAILY IN THE MORNING AND AT BEDTIME 325 mg TWICE DAILY IN THE MORNING AND AT BEDTIME (route: oral) Med Classific ation: Electroly te Balance-N utritiona l Products gabapentin 800 mg tablet 08-29 00:00: 00 09-22 23:59 :00 No [id number] 800 mg 2 TIMES DAILY 800 mg 2 TIMES DAILY (route: oral) Med Classific ation: Central Nervous System Agents hydralazine 25 mg tablet 08-29 00:00: 00 09-22 23:59 :00 No [id number] Unavailable 25 mg 3 TIMES DAILY 25 mg 3 TIMES DAILY (route: oral) Med Classific ation: Cardiovas cular Therapy Agents hydralazine 50 mg tablet 08-29 00:00: 00 09-25 23:59 :00 No [id number] Unavailable 50 mg THREE TIMES DAILY IN THE MORNING AT 50 mg THREE TIMES DAILY IN THE MORNING AT (route: oral) Med Classific ation: Cardiovas cular Therapy Agents mirtazapine 45 mg tablet 08-29 00:00: 00 Yes [id number] Unavailable 45 mg AT BEDTIME 45 mg AT BEDTIME (route: oral) Med Classific ation: Central Nervous System Agents omeprazole 20 mg capsule,del ayed release 08-29 00:00: 00 Yes [id number] 20 mg TWICE DAILY 20 mg TWICE DAILY (route: oral) Med Classific ation: Gastroint estinal Therapy Agents lisinopril 40 mg tablet 09-25 00:00: 00 Yes [id number] 40 mg DAILY 40 mg DAILY (route: oral) Med Classific ation: Cardiovas cular Therapy Agents metformin 1,000 mg tablet 09-25 00:00: 00 09-22 23:59 :00 No [id number] 1000 mg 2 TIMES DAILY 1000 mg 2 TIMES DAILY (route: oral) Med Classific ation: Endocrine multivitami n tablet 09-25 00:00: 00 Yes [id number] 1 tablet DAILY 1 tablet DAILY (route: oral) Med Classific ation: Electroly te Balance-N utritiona l Products nifedipine ER 60 mg tablet,exte nded release 09-25 00:00: 00 Yes [id number] 60 mg EVERY PM 60 mg EVERY PM (route: oral) Med Classific ation: Cardiovas cular Therapy Agents pioglitazon e 15 mg tablet 09-25 00:00: 00 Yes [id number] 15 mg DAILY 15 mg DAILY (route: oral) Med Classific ation: Endocrine Tresiba FlexTouch U-100 insulin 100 unit/mL (3 mL) subcutaneou s pen 09-25 00:00: 00 Yes [id number] 10 In unit DAILY 10 In unit DAILY (route: subcutaneo ) Med Classific ation: Endocrine aspirin 81 mg tablet 09-22 00:00: 00 Yes [id number] 1 tablet DAILY 1 tablet DAILY (route: oral) Med Classific ation: Hematolog ical Agents docusate sodium 100 mg capsule 09-22 00:00: 00 Yes [id number] 1 capsule 2 TIMES DAILY 1 capsule 2 TIMES DAILY (route: oral) Med Classific ation: Gastroint estinal Therapy Agents ferrous sulfate 325 mg (65 mg iron) tablet 09-22 00:00: 00 Yes [id number] 1 tablet 2 TIMES DAILY 1 tablet 2 TIMES DAILY (route: oral) Med Classific ation: Electroly te Balance-N utritiona l Products isosorbide mononitrate ER 30 mg tablet,exte nded release 24 hr 09-22 00:00: 00 Yes [id number] 1 tablet DAILY 1 tablet DAILY (route: [...] FOR SAFETY AND WILL NOTIFY CLINICAL ELECTRICAL ELECTRONICS TECHNICIAN AND PHYSICIAN/PROVIDER WITH ANY CHANGE IN CONDITION. [code = SKILLED NURSE WILL MAINTAIN SITUATIONAL AWARENESS FOR SAFETY AND WILL NOTIFY CLINICAL ELECTRICAL ELECTRONICS TECHNICIAN AND PHYSICIAN/PROVIDER WITH ANY CHANGE IN [...] 2025-01-17 00:00:00 Outpatient RECERTIFIC ATION ERIC EDDY [facility] [id number] 48.39
--- OUTSIDE RECORDS SUMMARY | 2025-01-16 19:00 | XMS_ITS | Clinical Summary ---
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 Name Role Phone ADILIA FELIPE, VIOLETA Unavailable Unavailable SURJIT DAVID, ERIC Unavailable Unavailable Payers Payer Name Policy Type Policy Number Effective Date Expira tion Date MEDICAID [facility] [id number] Problems Condition Name Condition Details Condition Category Status Onset Date Resolution Date Last Treatment Date Treating Clinician Comments ESSENTIAL (PRIMARY) HYPERTENSION Active 09-21 00:00: 00 ATHSCL HEART DISEASE OF [place] CORONARY ARTERY W/O ANG PCTRS Active 09-21 [...] CIGARETTES, UNCOMPLICATE D Active 09-21 00:00: 00 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 09-21 [...] release 24 hr 805 00:00: 00 Yes [id number] 60 mg AT BEDTIME 60 mg AT BEDTIME (route: oral) Med Classific ation: Cardiovas cular Therapy Agents oxycodone 5 mg tablet 09-04 00:00: 00 11-19 23:59 :00 No [id number] Unavailable 5 mg FIVE TIMES DAILY NEEDED 5 mg FIVE TIMES DAILY NEEDED (route: oral) Med Classific ation: Analgesic , Anti-infl ammatory or Antipyret ic gabapentin 600 mg tablet 09-03 00:00: 00 09-25 23:59 :00 No [id number] 600 mg 2 TIMES DAILY 600 mg 2 TIMES DAILY (route: oral) Med Classific ation: Central Nervous System Agents nicotine 21 mg/24 hr daily transdermal patch 08-30 00:00: 00 Yes [id number] Unavailable 21 mg DAILY 21 mg DAILY (route: transderma l) Med Classific ation: Chemical Dependenc y, Agents to Treat Alcohol Prep Pads 08-29 00:00: 00 05-18 23:59 :00 No [id number] 1 pads, medicat ed DIRECTED THREE TIMES DAILY AND NEEDED 1 pads, medicated DIRECTED THREE TIMES DAILY AND NEEDED (route: topical) Med Classific ation: Antisepti cs and Disinfect ants amitriptyli ne 50 mg tablet 08-29 00:00: 00 09-22 23:59 :00 No [id number] Unavailable 50 mg AT BEDTIME 50 mg AT BEDTIME (route: oral) Med Classific ation: Central Nervous System Agents Asmanex HFA 100 mcg/actuati on aerosol inhaler 08-29 00:00: 00 Yes [id number] 2 puff TWICE DAILY 2 puff TWICE DAILY (route: inhalation ) Med Classific ation: Respirato ry Therapy Agents atorvastati n 80 mg tablet 08-29 00:00: 00 Yes [id number] Unavailable 80 mg BEDTIME 80 mg BEDTIME (route: oral) Med Classific ation: Cardiovas cular Therapy Agents carvedilol 25 mg tablet 08-29 00:00: 00 Yes [id number] Unavailable 25 mg TWICE DAILY 25 mg TWICE DAILY (route: oral) Med Classific ation: Cardiovas cular Therapy Agents clopidogrel 75 mg tablet 08-29 00:00: 00 Yes [id number] 75 mg EVERY AM 75 mg EVERY AM (route: oral) Med Classific ation: Hematolog ical Agents docusate sodium 100 mg capsule 08-29 00:00: 00 09-25 23:59 :00 No [id number] Unavailable 100 mg TWICE DAILY 100 mg TWICE DAILY (route: oral) Med Classific ation: Gastroint estinal Therapy Agents escitalopra m 20 mg tablet 08-29 00:00: 00 Yes [id number] Unavailable 20 mg EVERY PM 20 mg EVERY PM (route: oral) Med Classific ation: Central Nervous System Agents FeroSul 325 mg (65 mg iron) tablet 08-29 00:00: 00 09-25 23:59 :00 No [id number] Unavailable 325 mg TWICE DAILY IN THE MORNING AND AT BEDTIME 325 mg TWICE DAILY IN THE MORNING AND AT BEDTIME (route: oral) Med Classific ation: Electroly te Balance-N utritiona l Products gabapentin 800 mg tablet 08-29 00:00: 00 09-22 23:59 :00 No [id number] 800 mg 2 TIMES DAILY 800 mg 2 TIMES DAILY (route: oral) Med Classific ation: Central Nervous System Agents hydralazine 25 mg tablet 08-29 00:00: 00 09-22 23:59 :00 No [id number] Unavailable 25 mg 3 TIMES DAILY 25 mg 3 TIMES DAILY (route: oral) Med Classific ation: Cardiovas cular Therapy Agents hydralazine 50 mg tablet 08-29 00:00: 00 09-25 23:59 :00 No [id number] Unavailable 50 mg THREE TIMES DAILY IN THE MORNING AT 50 mg THREE TIMES DAILY IN THE MORNING AT (route: oral) Med Classific ation: Cardiovas cular Therapy Agents mirtazapine 45 mg tablet 08-29 00:00: 00 Yes [id number] Unavailable 45 mg AT BEDTIME 45 mg AT BEDTIME (route: oral) Med Classific ation: Central Nervous System Agents omeprazole 20 mg capsule,del ayed release 08-29 00:00: 00 Yes [id number] 20 mg TWICE DAILY 20 mg TWICE DAILY (route: oral) Med Classific ation: Gastroint estinal Therapy Agents lisinopril 40 mg tablet 09-25 00:00: 00 Yes [id number] 40 mg DAILY 40 mg DAILY (route: oral) Med Classific ation: Cardiovas cular Therapy Agents metformin 1,000 mg tablet 09-25 00:00: 00 09-22 23:59 :00 No [id number] 1000 mg 2 TIMES DAILY 1000 mg 2 TIMES DAILY (route: oral) Med Classific ation: Endocrine multivitami n tablet 09-25 00:00: 00 Yes [id number] 1 tablet DAILY 1 tablet DAILY (route: oral) Med Classific ation: Electroly te Balance-N utritiona l Products nifedipine ER 60 mg tablet,exte nded release 09-25 00:00: 00 Yes [id number] 60 mg EVERY PM 60 mg EVERY PM (route: oral) Med Classific ation: Cardiovas cular Therapy Agents pioglitazon e 15 mg tablet 09-25 00:00: 00 Yes [id number] 15 mg DAILY 15 mg DAILY (route: oral) Med Classific ation: Endocrine Tresiba FlexTouch U-100 insulin 100 unit/mL (3 mL) subcutaneou s pen 09-25 00:00: 00 Yes [id number] 10 In unit DAILY 10 In unit DAILY (route: subcutaneo ) Med Classific ation: Endocrine aspirin 81 mg tablet 09-22 00:00: 00 Yes [id number] 1 tablet DAILY 1 tablet DAILY (route: oral) Med Classific ation: Hematolog ical Agents docusate sodium 100 mg capsule 09-22 00:00: 00 Yes [id number] 1 capsule 2 TIMES DAILY 1 capsule 2 TIMES DAILY (route: oral) Med Classific ation: Gastroint estinal Therapy Agents ferrous sulfate 325 mg (65 mg iron) tablet 09-22 00:00: 00 Yes [id number] 1 tablet 2 TIMES DAILY 1 tablet 2 TIMES DAILY (route: oral) Med Classific ation: Electroly te Balance-N utritiona l Products isosorbide mononitrate ER 30 mg tablet,exte nded release 24 hr 09-22 00:00: 00 Yes [id number] 1 tablet DAILY 1 tablet DAILY (route: [...] PRE-POUR MEDICATION PER MEDICATION LIST TILL NEXT LONGTERM VISIT [code = SKILLED NURSE TO PRE-POUR MEDICATION PER MEDICATION LIST TILL NEXT LONGTERM VISIT] Future Scheduled Test PATIENT MA Y [...] MEDICATIONS DAILY AND PRE-POUR MEDICATIONS TILL NEXT LONGTERM VISIT PER MEDICATION LIST. [code = SKILLED NURSE TO ADMINISTER MEDICATIONS DAILY AND PRE-POUR MEDICATIONS TILL NEXT LONGTERM VISIT PER MEDICATION LIST.] Future Scheduled Test [...] AWARENESS FOR SAFETY AND WILL NOTIFY CLINICAL LIVESTOCK RANCH HAND AND PHYSICIAN/PROVIDER WITH ANY CHANGE IN CONDITION. [code = SKILLED NURSE WILL MAINTAIN SITUATIONAL AWARENESS FOR SAFETY AND WILL NOTIFY CLINICAL LIVESTOCK RANCH HAND AND PHYSICIAN/PROVIDER WITH ANY CHANGE IN CONDITION.] [...] CARE WILL BE ESTABLISHED THAT MEETS PATIENT'S LONGTERM NEEDS AND INCLUDES PATIENT GOAL FOR HOME [...] ERIC EDDY [facility] [id number] 48.39
--- OUTSIDE RECORDS SUMMARY | 2025-01-16 19:00 | XMS_ITS | Clinical Summary ---
Author Organization Unknown Care Team Providers Care Network Systems Integrator Name Role Phone ADILIA FELIPE, VIOLETA Unavailable Unavailable SURJIT DAVID, ERIC Unavailable Unavailable Payers Payer Name Policy Type Policy Number Effective Date Expira tion Date MEDICAID [facility] [id number] Problems Condition Name Condition Details Condition Category Status Onset Date Resolution Date Last Treatment Date Treating Clinician Comments ESSENTIAL (PRIMARY) HYPERTENSION Active 09-21 00:00: 00 ATHSCL HEART DISEASE OF [place] CORONARY ARTERY W/O ANG PCTRS Active [...] CIGARETTES, UNCOMPLICATE D Active 09-21 00:00: 00 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 Active 09-21 00:00: [...] release 24 hr 805 00:00: 00 Yes [id number] 60 mg AT BEDTIME 60 mg AT BEDTIME (route: oral) Med Classific ation: Cardiovas cular Therapy Agents oxycodone 5 mg tablet 09-04 00:00: 00 11-19 23:59 :00 No [id number] Unavailable 5 mg FIVE TIMES DAILY NEEDED 5 mg FIVE TIMES DAILY NEEDED (route: oral) Med Classific ation: Analgesic , Anti-infl ammatory or Antipyret ic gabapentin 600 mg tablet 09-03 00:00: 00 09-25 23:59 :00 No [id number] 600 mg 2 TIMES DAILY 600 mg 2 TIMES DAILY (route: oral) Med Classific ation: Central Nervous System Agents nicotine 21 mg/24 hr daily transdermal patch 08-30 00:00: 00 Yes [id number] Unavailable 21 mg DAILY 21 mg DAILY (route: transderma l) Med Classific ation: Chemical Dependenc y, Agents to Treat Alcohol Prep Pads 08-29 00:00: 00 05-18 23:59 :00 No [id number] 1 pads, medicat ed DIRECTED THREE TIMES DAILY AND NEEDED 1 pads, medicated DIRECTED THREE TIMES DAILY AND NEEDED (route: topical) Med Classific ation: Antisepti cs and Disinfect ants amitriptyli ne 50 mg tablet 08-29 00:00: 00 09-22 23:59 :00 No [id number] Unavailable 50 mg AT BEDTIME 50 mg AT BEDTIME (route: oral) Med Classific ation: Central Nervous System Agents Asmanex HFA 100 mcg/actuati on aerosol inhaler 08-29 00:00: 00 Yes [id number] 2 puff TWICE DAILY 2 puff TWICE DAILY (route: inhalation ) Med Classific ation: Respirato ry Therapy Agents atorvastati n 80 mg tablet 08-29 00:00: 00 Yes [id number] Unavailable 80 mg BEDTIME 80 mg BEDTIME (route: oral) Med Classific ation: Cardiovas cular Therapy Agents carvedilol 25 mg tablet 08-29 00:00: 00 Yes [id number] Unavailable 25 mg TWICE DAILY 25 mg TWICE DAILY (route: oral) Med Classific ation: Cardiovas cular Therapy Agents clopidogrel 75 mg tablet 08-29 00:00: 00 Yes [id number] 75 mg EVERY AM 75 mg EVERY AM (route: oral) Med Classific ation: Hematolog ical Agents docusate sodium 100 mg capsule 08-29 00:00: 00 09-25 23:59 :00 No [id number] Unavailable 100 mg TWICE DAILY 100 mg TWICE DAILY (route: oral) Med Classific ation: Gastroint estinal Therapy Agents escitalopra m 20 mg tablet 08-29 00:00: 00 Yes [id number] Unavailable 20 mg EVERY PM 20 mg EVERY PM (route: oral) Med Classific ation: Central Nervous System Agents FeroSul 325 mg (65 mg iron) tablet 08-29 00:00: 00 09-25 23:59 :00 No [id number] Unavailable 325 mg TWICE DAILY IN THE MORNING AND AT BEDTIME 325 mg TWICE DAILY IN THE MORNING AND AT BEDTIME (route: oral) Med Classific ation: Electroly te Balance-N utritiona l Products gabapentin 800 mg tablet 08-29 00:00: 00 09-22 23:59 :00 No [id number] 800 mg 2 TIMES DAILY 800 mg 2 TIMES DAILY (route: oral) Med Classific ation: Central Nervous System Agents hydralazine 25 mg tablet 08-29 00:00: 00 09-22 23:59 :00 No [id number] Unavailable 25 mg 3 TIMES DAILY 25 mg 3 TIMES DAILY (route: oral) Med Classific ation: Cardiovas cular Therapy Agents hydralazine 50 mg tablet 08-29 00:00: 00 09-25 23:59 :00 No [id number] Unavailable 50 mg THREE TIMES DAILY IN THE MORNING AT 50 mg THREE TIMES DAILY IN THE MORNING AT (route: oral) Med Classific ation: Cardiovas cular Therapy Agents mirtazapine 45 mg tablet 08-29 00:00: 00 Yes [id number] Unavailable 45 mg AT BEDTIME 45 mg AT BEDTIME (route: oral) Med Classific ation: Central Nervous System Agents omeprazole 20 mg capsule,del ayed release 08-29 00:00: 00 Yes [id number] 20 mg TWICE DAILY 20 mg TWICE DAILY (route: oral) Med Classific ation: Gastroint estinal Therapy Agents lisinopril 40 mg tablet 09-25 00:00: 00 Yes [id number] 40 mg DAILY 40 mg DAILY (route: oral) Med Classific ation: Cardiovas cular Therapy Agents metformin 1,000 mg tablet 09-25 00:00: 00 09-22 23:59 :00 No [id number] 1000 mg 2 TIMES DAILY 1000 mg 2 TIMES DAILY (route: oral) Med Classific ation: Endocrine multivitami n tablet 09-25 00:00: 00 Yes [id number] 1 tablet DAILY 1 tablet DAILY (route: oral) Med Classific ation: Electroly te Balance-N utritiona l Products nifedipine ER 60 mg tablet,exte nded release 09-25 00:00: 00 Yes [id number] 60 mg EVERY PM 60 mg EVERY PM (route: oral) Med Classific ation: Cardiovas cular Therapy Agents pioglitazon e 15 mg tablet 09-25 00:00: 00 Yes [id number] 15 mg DAILY 15 mg DAILY (route: oral) Med Classific ation: Endocrine Tresiba FlexTouch U-100 insulin 100 unit/mL (3 mL) subcutaneou s pen 09-25 00:00: 00 Yes [id number] 10 In unit DAILY 10 In unit DAILY (route: subcutaneo ) Med Classific ation: Endocrine aspirin 81 mg tablet 09-22 00:00: 00 Yes [id number] 1 tablet DAILY 1 tablet DAILY (route: oral) Med Classific ation: Hematolog ical Agents docusate sodium 100 mg capsule 09-22 00:00: 00 Yes [id number] 1 capsule 2 TIMES DAILY 1 capsule 2 TIMES DAILY (route: oral) Med Classific ation: Gastroint estinal Therapy Agents ferrous sulfate 325 mg (65 mg iron) tablet 09-22 00:00: 00 Yes [id number] 1 tablet 2 TIMES DAILY 1 tablet 2 TIMES DAILY (route: oral) Med Classific ation: Electroly te Balance-N utritiona l Products isosorbide mononitrate ER 30 mg tablet,exte nded release 24 hr 09-22 00:00: 00 Yes [id number] 1 tablet DAILY 1 tablet DAILY (route: [...] AWARENESS FOR SAFETY AND WILL NOTIFY CLINICAL CUSTOMER SERVICE SPECIALIST AND PHYSICIAN/PROVIDER WITH ANY CHANGE IN CONDITION. [code = SKILLED NURSE WILL MAINTAIN SITUATIONAL AWARENESS FOR SAFETY AND WILL NOTIFY CLINICAL CUSTOMER SERVICE SPECIALIST AND PHYSICIAN/PROVIDER WITH ANY CHANGE IN [...] ERIC EDDY [facility] [id number] 48.39
--- OUTSIDE RECORDS SUMMARY | 2025-01-16 19:00 | XMS_ITS | Clinical Summary ---
Author Organization Unknown Care Team Providers Care Transplanter Name Role Phone ADILIA FELIPE, VIOLETA Unavailable Unavailable SURJIT DAVID, ERIC Unavailable Unavailable Payers Payer Name Policy Type Policy Number Effective Date Expira tion Date MEDICAID [facility] [id number] Problems Condition Name Condition Details Condition Category Status Onset Date Resolution Date Last Treatment Date Treating Clinician Comments ESSENTIAL (PRIMARY) HYPERTENSION Active 09-21 00:00: 00 ATHSCL HEART DISEASE OF [place] CORONARY ARTERY W/O ANG PCTRS Active 09-21 [...] CIGARETTES, UNCOMPLICATE D Active 09-21 00:00: 00 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 09-21 00:00: [...] release 24 hr 805 00:00: 00 Yes [id number] 60 mg AT BEDTIME 60 mg AT BEDTIME (route: oral) Med Classific ation: Cardiovas cular Therapy Agents oxycodone 5 mg tablet 09-04 00:00: 00 11-19 23:59 :00 No [id number] Unavailable 5 mg FIVE TIMES DAILY NEEDED 5 mg FIVE TIMES DAILY NEEDED (route: oral) Med Classific ation: Analgesic , Anti-infl ammatory or Antipyret ic gabapentin 600 mg tablet 09-03 00:00: 00 09-25 23:59 :00 No [id number] 600 mg 2 TIMES DAILY 600 mg 2 TIMES DAILY (route: oral) Med Classific ation: Central Nervous System Agents nicotine 21 mg/24 hr daily transdermal patch 08-30 00:00: 00 Yes [id number] Unavailable 21 mg DAILY 21 mg DAILY (route: transderma l) Med Classific ation: Chemical Dependenc y, Agents to Treat Alcohol Prep Pads 08-29 00:00: 00 05-18 23:59 :00 No [id number] 1 pads, medicat ed DIRECTED THREE TIMES DAILY AND NEEDED 1 pads, medicated DIRECTED THREE TIMES DAILY AND NEEDED (route: topical) Med Classific ation: Antisepti cs and Disinfect ants amitriptyli ne 50 mg tablet 08-29 00:00: 00 09-22 23:59 :00 No [id number] Unavailable 50 mg AT BEDTIME 50 mg AT BEDTIME (route: oral) Med Classific ation: Central Nervous System Agents Asmanex HFA 100 mcg/actuati on aerosol inhaler 08-29 00:00: 00 Yes [id number] 2 puff TWICE DAILY 2 puff TWICE DAILY (route: inhalation ) Med Classific ation: Respirato ry Therapy Agents atorvastati n 80 mg tablet 08-29 00:00: 00 Yes [id number] Unavailable 80 mg BEDTIME 80 mg BEDTIME (route: oral) Med Classific ation: Cardiovas cular Therapy Agents carvedilol 25 mg tablet 08-29 00:00: 00 Yes [id number] Unavailable 25 mg TWICE DAILY 25 mg TWICE DAILY (route: oral) Med Classific ation: Cardiovas cular Therapy Agents clopidogrel 75 mg tablet 08-29 00:00: 00 Yes [id number] 75 mg EVERY AM 75 mg EVERY AM (route: oral) Med Classific ation: Hematolog ical Agents docusate sodium 100 mg capsule 08-29 00:00: 00 09-25 23:59 :00 No [id number] Unavailable 100 mg TWICE DAILY 100 mg TWICE DAILY (route: oral) Med Classific ation: Gastroint estinal Therapy Agents escitalopra m 20 mg tablet 08-29 00:00: 00 Yes [id number] Unavailable 20 mg EVERY PM 20 mg EVERY PM (route: oral) Med Classific ation: Central Nervous System Agents FeroSul 325 mg (65 mg iron) tablet 08-29 00:00: 00 09-25 23:59 :00 No [id number] Unavailable 325 mg TWICE DAILY IN THE MORNING AND AT BEDTIME 325 mg TWICE DAILY IN THE MORNING AND AT BEDTIME (route: oral) Med Classific ation: Electroly te Balance-N utritiona l Products gabapentin 800 mg tablet 08-29 00:00: 00 09-22 23:59 :00 No [id number] 800 mg 2 TIMES DAILY 800 mg 2 TIMES DAILY (route: oral) Med Classific ation: Central Nervous System Agents hydralazine 25 mg tablet 08-29 00:00: 00 09-22 23:59 :00 No [id number] Unavailable 25 mg 3 TIMES DAILY 25 mg 3 TIMES DAILY (route: oral) Med Classific ation: Cardiovas cular Therapy Agents hydralazine 50 mg tablet 08-29 00:00: 00 09-25 23:59 :00 No [id number] Unavailable 50 mg THREE TIMES DAILY IN THE MORNING AT 50 mg THREE TIMES DAILY IN THE MORNING AT (route: oral) Med Classific ation: Cardiovas cular Therapy Agents mirtazapine 45 mg tablet 08-29 00:00: 00 Yes [id number] Unavailable 45 mg AT BEDTIME 45 mg AT BEDTIME (route: oral) Med Classific ation: Central Nervous System Agents omeprazole 20 mg capsule,del ayed release 08-29 00:00: 00 Yes [id number] 20 mg TWICE DAILY 20 mg TWICE DAILY (route: oral) Med Classific ation: Gastroint estinal Therapy Agents lisinopril 40 mg tablet 09-25 00:00: 00 Yes [id number] 40 mg DAILY 40 mg DAILY (route: oral) Med Classific ation: Cardiovas cular Therapy Agents metformin 1,000 mg tablet 09-25 00:00: 00 09-22 23:59 :00 No [id number] 1000 mg 2 TIMES DAILY 1000 mg 2 TIMES DAILY (route: oral) Med Classific ation: Endocrine multivitami n tablet 09-25 00:00: 00 Yes [id number] 1 tablet DAILY 1 tablet DAILY (route: oral) Med Classific ation: Electroly te Balance-N utritiona l Products nifedipine ER 60 mg tablet,exte nded release 09-25 00:00: 00 Yes [id number] 60 mg EVERY PM 60 mg EVERY PM (route: oral) Med Classific ation: Cardiovas cular Therapy Agents pioglitazon e 15 mg tablet 09-25 00:00: 00 Yes [id number] 15 mg DAILY 15 mg DAILY (route: oral) Med Classific ation: Endocrine Tresiba FlexTouch U-100 insulin 100 unit/mL (3 mL) subcutaneou s pen 09-25 00:00: 00 Yes [id number] 10 In unit DAILY 10 In unit DAILY (route: subcutaneo ) Med Classific ation: Endocrine aspirin 81 mg tablet 09-22 00:00: 00 Yes [id number] 1 tablet DAILY 1 tablet DAILY (route: oral) Med Classific ation: Hematolog ical Agents docusate sodium 100 mg capsule 09-22 00:00: 00 Yes [id number] 1 capsule 2 TIMES DAILY 1 capsule 2 TIMES DAILY (route: oral) Med Classific ation: Gastroint estinal Therapy Agents ferrous sulfate 325 mg (65 mg iron) tablet 09-22 00:00: 00 Yes [id number] 1 tablet 2 TIMES DAILY 1 tablet 2 TIMES DAILY (route: oral) Med Classific ation: Electroly te Balance-N utritiona l Products isosorbide mononitrate ER 30 mg tablet,exte nded release 24 hr 09-22 00:00: 00 Yes [id number] 1 tablet DAILY 1 tablet DAILY (route: [...] AWARENESS FOR SAFETY AND WILL NOTIFY CLINICAL SEO EXECUTIVE AND PHYSICIAN/PROVIDER WITH ANY CHANGE IN CONDITION. [code = SKILLED NURSE WILL MAINTAIN SITUATIONAL AWARENESS FOR SAFETY AND WILL NOTIFY CLINICAL SEO EXECUTIVE AND PHYSICIAN/PROVIDER WITH ANY CHANGE IN CONDITION.] [...] 2025-01-17 00:00:00 Outpatient RECERTIFIC ATION ERIC EDDY [facility] [id number] 48.39
--- OUTSIDE RECORDS SUMMARY | 2025-01-16 19:00 | XMS_ITS | Clinical Summary ---
Author Organization Unknown Care Team Providers Care Fee Clerk Name Role Phone ADILIA FELIPE, VIOLETA Unavailable Unavailable SURJIT DAVID, ERIC Unavailable Unavailable Payers Payer Name Policy Type Policy Number Effective Date Expira tion Date MEDICAID [facility] [id number] Problems Condition Name Condition Details Condition Category Status Onset Date Resolution Date Last Treatment Date Treating Clinician Comments ESSENTIAL (PRIMARY) HYPERTENSION Active 09-21 00:00: 00 ATHSCL HEART DISEASE OF [place] CORONARY ARTERY W/O ANG PCTRS Active 09-21 [...] CIGARETTES, UNCOMPLICATE D Active 09-21 00:00: 00 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 09-21 00:00: [...] release 24 hr 805 00:00: 00 Yes [id number] 60 mg AT BEDTIME 60 mg AT BEDTIME (route: oral) Med Classific ation: Cardiovas cular Therapy Agents oxycodone 5 mg tablet 09-04 00:00: 00 11-19 23:59 :00 No [id number] Unavailable 5 mg FIVE TIMES DAILY NEEDED 5 mg FIVE TIMES DAILY NEEDED (route: oral) Med Classific ation: Analgesic , Anti-infl ammatory or Antipyret ic gabapentin 600 mg tablet 09-03 00:00: 00 09-25 23:59 :00 No [id number] 600 mg 2 TIMES DAILY 600 mg 2 TIMES DAILY (route: oral) Med Classific ation: Central Nervous System Agents nicotine 21 mg/24 hr daily transdermal patch 08-30 00:00: 00 Yes [id number] Unavailable 21 mg DAILY 21 mg DAILY (route: transderma l) Med Classific ation: Chemical Dependenc y, Agents to Treat Alcohol Prep Pads 08-29 00:00: 00 05-18 23:59 :00 No [id number] 1 pads, medicat ed DIRECTED THREE TIMES DAILY AND NEEDED 1 pads, medicated DIRECTED THREE TIMES DAILY AND NEEDED (route: topical) Med Classific ation: Antisepti cs and Disinfect ants amitriptyli ne 50 mg tablet 08-29 00:00: 00 09-22 23:59 :00 No [id number] Unavailable 50 mg AT BEDTIME 50 mg AT BEDTIME (route: oral) Med Classific ation: Central Nervous System Agents Asmanex HFA 100 mcg/actuati on aerosol inhaler 08-29 00:00: 00 Yes [id number] 2 puff TWICE DAILY 2 puff TWICE DAILY (route: inhalation ) Med Classific ation: Respirato ry Therapy Agents atorvastati n 80 mg tablet 08-29 00:00: 00 Yes [id number] Unavailable 80 mg BEDTIME 80 mg BEDTIME (route: oral) Med Classific ation: Cardiovas cular Therapy Agents carvedilol 25 mg tablet 08-29 00:00: 00 Yes [id number] Unavailable 25 mg TWICE DAILY 25 mg TWICE DAILY (route: oral) Med Classific ation: Cardiovas cular Therapy Agents clopidogrel 75 mg tablet 08-29 00:00: 00 Yes [id number] 75 mg EVERY AM 75 mg EVERY AM (route: oral) Med Classific ation: Hematolog ical Agents docusate sodium 100 mg capsule 08-29 00:00: 00 09-25 23:59 :00 No [id number] Unavailable 100 mg TWICE DAILY 100 mg TWICE DAILY (route: oral) Med Classific ation: Gastroint estinal Therapy Agents escitalopra m 20 mg tablet 08-29 00:00: 00 Yes [id number] Unavailable 20 mg EVERY PM 20 mg EVERY PM (route: oral) Med Classific ation: Central Nervous System Agents FeroSul 325 mg (65 mg iron) tablet 08-29 00:00: 00 09-25 23:59 :00 No [id number] Unavailable 325 mg TWICE DAILY IN THE MORNING AND AT BEDTIME 325 mg TWICE DAILY IN THE MORNING AND AT BEDTIME (route: oral) Med Classific ation: Electroly te Balance-N utritiona l Products gabapentin 800 mg tablet 08-29 00:00: 00 09-22 23:59 :00 No [id number] 800 mg 2 TIMES DAILY 800 mg 2 TIMES DAILY (route: oral) Med Classific ation: Central Nervous System Agents hydralazine 25 mg tablet 08-29 00:00: 00 09-22 23:59 :00 No [id number] Unavailable 25 mg 3 TIMES DAILY 25 mg 3 TIMES DAILY (route: oral) Med Classific ation: Cardiovas cular Therapy Agents hydralazine 50 mg tablet 08-29 00:00: 00 09-25 23:59 :00 No [id number] Unavailable 50 mg THREE TIMES DAILY IN THE MORNING AT 50 mg THREE TIMES DAILY IN THE MORNING AT (route: oral) Med Classific ation: Cardiovas cular Therapy Agents mirtazapine 45 mg tablet 08-29 00:00: 00 Yes [id number] Unavailable 45 mg AT BEDTIME 45 mg AT BEDTIME (route: oral) Med Classific ation: Central Nervous System Agents omeprazole 20 mg capsule,del ayed release 08-29 00:00: 00 Yes [id number] 20 mg TWICE DAILY 20 mg TWICE DAILY (route: oral) Med Classific ation: Gastroint estinal Therapy Agents lisinopril 40 mg tablet 09-25 00:00: 00 Yes [id number] 40 mg DAILY 40 mg DAILY (route: oral) Med Classific ation: Cardiovas cular Therapy Agents metformin 1,000 mg tablet 09-25 00:00: 00 09-22 23:59 :00 No [id number] 1000 mg 2 TIMES DAILY 1000 mg 2 TIMES DAILY (route: oral) Med Classific ation: Endocrine multivitami n tablet 09-25 00:00: 00 Yes [id number] 1 tablet DAILY 1 tablet DAILY (route: oral) Med Classific ation: Electroly te Balance-N utritiona l Products nifedipine ER 60 mg tablet,exte nded release 09-25 00:00: 00 Yes [id number] 60 mg EVERY PM 60 mg EVERY PM (route: oral) Med Classific ation: Cardiovas cular Therapy Agents pioglitazon e 15 mg tablet 09-25 00:00: 00 Yes [id number] 15 mg DAILY 15 mg DAILY (route: oral) Med Classific ation: Endocrine Tresiba FlexTouch U-100 insulin 100 unit/mL (3 mL) subcutaneou s pen 09-25 00:00: 00 Yes [id number] 10 In unit DAILY 10 In unit DAILY (route: subcutaneo ) Med Classific ation: Endocrine aspirin 81 mg tablet 09-22 00:00: 00 Yes [id number] 1 tablet DAILY 1 tablet DAILY (route: oral) Med Classific ation: Hematolog ical Agents docusate sodium 100 mg capsule 09-22 00:00: 00 Yes [id number] 1 capsule 2 TIMES DAILY 1 capsule 2 TIMES DAILY (route: oral) Med Classific ation: Gastroint estinal Therapy Agents ferrous sulfate 325 mg (65 mg iron) tablet 09-22 00:00: 00 Yes [id number] 1 tablet 2 TIMES DAILY 1 tablet 2 TIMES DAILY (route: oral) Med Classific ation: Electroly te Balance-N utritiona l Products isosorbide mononitrate ER 30 mg tablet,exte nded release 24 hr 09-22 00:00: 00 Yes [id number] 1 tablet DAILY 1 tablet DAILY (route: [...] AWARENESS FOR SAFETY AND WILL NOTIFY CLINICAL SOCIAL WORK SUPERVISOR AND PHYSICIAN/PROVIDER WITH ANY CHANGE IN CONDITION. [code = SKILLED NURSE WILL MAINTAIN SITUATIONAL AWARENESS FOR SAFETY AND WILL NOTIFY CLINICAL SOCIAL WORK SUPERVISOR AND PHYSICIAN/PROVIDER WITH ANY CHANGE IN [...] ERIC EDDY [facility] [id number] 48.39
--- OUTSIDE RECORDS SUMMARY | 2025-01-16 19:00 | XMS_ITS | Clinical Summary ---
Author Organization Unknown Care Team Providers Care Naturopathic Oncology Provider Name Role Phone ADILIA FELIPE, VIOLETA Unavailable Unavailable SURJIT DAVID, ERIC Unavailable Unavailable Payers Payer Name Policy Type Policy Number Effective Date Expira tion Date MEDICAID [facility] [id number] Problems Condition Name Condition Details Condition Category Status Onset Date Resolution Date Last Treatment Date Treating Clinician Comments ESSENTIAL (PRIMARY) HYPERTENSION Active 09-21 00:00: 00 ATHSCL HEART DISEASE OF [place] CORONARY ARTERY W/O ANG PCTRS Active 09-21 [...] CIGARETTES, UNCOMPLICATE D Active 09-21 00:00: 00 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 Active 09-21 00:00: [...] release 24 hr 805 00:00: 00 Yes [id number] 60 mg AT BEDTIME 60 mg AT BEDTIME (route: oral) Med Classific ation: Cardiovas cular Therapy Agents oxycodone 5 mg tablet 09-04 00:00: 00 11-19 23:59 :00 No [id number] Unavailable 5 mg FIVE TIMES DAILY NEEDED 5 mg FIVE TIMES DAILY NEEDED (route: oral) Med Classific ation: Analgesic , Anti-infl ammatory or Antipyret ic gabapentin 600 mg tablet 09-03 00:00: 00 09-25 23:59 :00 No [id number] 600 mg 2 TIMES DAILY 600 mg 2 TIMES DAILY (route: oral) Med Classific ation: Central Nervous System Agents nicotine 21 mg/24 hr daily transdermal patch 08-30 00:00: 00 Yes [id number] Unavailable 21 mg DAILY 21 mg DAILY (route: transderma l) Med Classific ation: Chemical Dependenc y, Agents to Treat Alcohol Prep Pads 08-29 00:00: 00 05-18 23:59 :00 No [id number] 1 pads, medicat ed DIRECTED THREE TIMES DAILY AND NEEDED 1 pads, medicated DIRECTED THREE TIMES DAILY AND NEEDED (route: topical) Med Classific ation: Antisepti cs and Disinfect ants amitriptyli ne 50 mg tablet 08-29 00:00: 00 09-22 23:59 :00 No [id number] Unavailable 50 mg AT BEDTIME 50 mg AT BEDTIME (route: oral) Med Classific ation: Central Nervous System Agents Asmanex HFA 100 mcg/actuati on aerosol inhaler 08-29 00:00: 00 Yes [id number] 2 puff TWICE DAILY 2 puff TWICE DAILY (route: inhalation ) Med Classific ation: Respirato ry Therapy Agents atorvastati n 80 mg tablet 08-29 00:00: 00 Yes [id number] Unavailable 80 mg BEDTIME 80 mg BEDTIME (route: oral) Med Classific ation: Cardiovas cular Therapy Agents carvedilol 25 mg tablet 08-29 00:00: 00 Yes [id number] Unavailable 25 mg TWICE DAILY 25 mg TWICE DAILY (route: oral) Med Classific ation: Cardiovas cular Therapy Agents clopidogrel 75 mg tablet 08-29 00:00: 00 Yes [id number] 75 mg EVERY AM 75 mg EVERY AM (route: oral) Med Classific ation: Hematolog ical Agents docusate sodium 100 mg capsule 08-29 00:00: 00 09-25 23:59 :00 No [id number] Unavailable 100 mg TWICE DAILY 100 mg TWICE DAILY (route: oral) Med Classific ation: Gastroint estinal Therapy Agents escitalopra m 20 mg tablet 08-29 00:00: 00 Yes [id number] Unavailable 20 mg EVERY PM 20 mg EVERY PM (route: oral) Med Classific ation: Central Nervous System Agents FeroSul 325 mg (65 mg iron) tablet 08-29 00:00: 00 09-25 23:59 :00 No [id number] Unavailable 325 mg TWICE DAILY IN THE MORNING AND AT BEDTIME 325 mg TWICE DAILY IN THE MORNING AND AT BEDTIME (route: oral) Med Classific ation: Electroly te Balance-N utritiona l Products gabapentin 800 mg tablet 08-29 00:00: 00 09-22 23:59 :00 No [id number] 800 mg 2 TIMES DAILY 800 mg 2 TIMES DAILY (route: oral) Med Classific ation: Central Nervous System Agents hydralazine 25 mg tablet 08-29 00:00: 00 09-22 23:59 :00 No [id number] Unavailable 25 mg 3 TIMES DAILY 25 mg 3 TIMES DAILY (route: oral) Med Classific ation: Cardiovas cular Therapy Agents hydralazine 50 mg tablet 08-29 00:00: 00 09-25 23:59 :00 No [id number] Unavailable 50 mg THREE TIMES DAILY IN THE MORNING AT 50 mg THREE TIMES DAILY IN THE MORNING AT (route: oral) Med Classific ation: Cardiovas cular Therapy Agents mirtazapine 45 mg tablet 08-29 00:00: 00 Yes [id number] Unavailable 45 mg AT BEDTIME 45 mg AT BEDTIME (route: oral) Med Classific ation: Central Nervous System Agents omeprazole 20 mg capsule,del ayed release 08-29 00:00: 00 Yes [id number] 20 mg TWICE DAILY 20 mg TWICE DAILY (route: oral) Med Classific ation: Gastroint estinal Therapy Agents lisinopril 40 mg tablet 09-25 00:00: 00 Yes [id number] 40 mg DAILY 40 mg DAILY (route: oral) Med Classific ation: Cardiovas cular Therapy Agents metformin 1,000 mg tablet 09-25 00:00: 00 09-22 23:59 :00 No [id number] 1000 mg 2 TIMES DAILY 1000 mg 2 TIMES DAILY (route: oral) Med Classific ation: Endocrine multivitami n tablet 09-25 00:00: 00 Yes [id number] 1 tablet DAILY 1 tablet DAILY (route: oral) Med Classific ation: Electroly te Balance-N utritiona l Products nifedipine ER 60 mg tablet,exte nded release 09-25 00:00: 00 Yes [id number] 60 mg EVERY PM 60 mg EVERY PM (route: oral) Med Classific ation: Cardiovas cular Therapy Agents pioglitazon e 15 mg tablet 09-25 00:00: 00 Yes [id number] 15 mg DAILY 15 mg DAILY (route: oral) Med Classific ation: Endocrine Tresiba FlexTouch U-100 insulin 100 unit/mL (3 mL) subcutaneou s pen 09-25 00:00: 00 Yes [id number] 10 In unit DAILY 10 In unit DAILY (route: subcutaneo ) Med Classific ation: Endocrine aspirin 81 mg tablet 09-22 00:00: 00 Yes [id number] 1 tablet DAILY 1 tablet DAILY (route: oral) Med Classific ation: Hematolog ical Agents docusate sodium 100 mg capsule 09-22 00:00: 00 Yes [id number] 1 capsule 2 TIMES DAILY 1 capsule 2 TIMES DAILY (route: oral) Med Classific ation: Gastroint estinal Therapy Agents ferrous sulfate 325 mg (65 mg iron) tablet 09-22 00:00: 00 Yes [id number] 1 tablet 2 TIMES DAILY 1 tablet 2 TIMES DAILY (route: oral) Med Classific ation: Electroly te Balance-N utritiona l Products isosorbide mononitrate ER 30 mg tablet,exte nded release 24 hr 09-22 00:00: 00 Yes [id number] 1 tablet DAILY 1 tablet DAILY (route: [...] AWARENESS FOR SAFETY AND WILL NOTIFY CLINICAL LIEUTENANT GOVERNOR AND PHYSICIAN/PROVIDER WITH ANY CHANGE IN CONDITION. [code = SKILLED NURSE WILL MAINTAIN SITUATIONAL AWARENESS FOR SAFETY AND WILL NOTIFY CLINICAL LIEUTENANT GOVERNOR AND PHYSICIAN/PROVIDER WITH ANY CHANGE IN CONDITION.] [...] ATION ERIC EDDY [facility] [id number] 48.39
--- OUTSIDE RECORDS SUMMARY | 2025-01-16 19:00 | XMS_ITS | Clinical Summary ---
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 Name Role Phone ADILIA FELIPE, VIOLETA Unavailable Unavailable SURJIT DAVID, ERIC Unavailable Unavailable Payers Payer Name Policy Type Policy Number Effective Date Expira tion Date MEDICAID [facility] [id number] Problems Condition Name Condition Details Condition Category Status Onset Date Resolution Date Last Treatment Date Treating Clinician Comments ESSENTIAL (PRIMARY) HYPERTENSION Active 09-21 00:00: 00 ATHSCL HEART DISEASE OF [place] CORONARY ARTERY W/O ANG PCTRS Active 09-21 [...] CIGARETTES, UNCOMPLICATE D Active 09-21 00:00: 00 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 Active 09-21 00:00: [...] release 24 hr 805 00:00: 00 Yes [id number] 60 mg AT BEDTIME 60 mg AT BEDTIME (route: oral) Med Classific ation: Cardiovas cular Therapy Agents oxycodone 5 mg tablet 09-04 00:00: 00 11-19 23:59 :00 No [id number] Unavailable 5 mg FIVE TIMES DAILY NEEDED 5 mg FIVE TIMES DAILY NEEDED (route: oral) Med Classific ation: Analgesic , Anti-infl ammatory or Antipyret ic gabapentin 600 mg tablet 09-03 00:00: 00 09-25 23:59 :00 No [id number] 600 mg 2 TIMES DAILY 600 mg 2 TIMES DAILY (route: oral) Med Classific ation: Central Nervous System Agents nicotine 21 mg/24 hr daily transdermal patch 08-30 00:00: 00 Yes [id number] Unavailable 21 mg DAILY 21 mg DAILY (route: transderma l) Med Classific ation: Chemical Dependenc y, Agents to Treat Alcohol Prep Pads 08-29 00:00: 00 05-18 23:59 :00 No [id number] 1 pads, medicat ed DIRECTED THREE TIMES DAILY AND NEEDED 1 pads, medicated DIRECTED THREE TIMES DAILY AND NEEDED (route: topical) Med Classific ation: Antisepti cs and Disinfect ants amitriptyli ne 50 mg tablet 08-29 00:00: 00 09-22 23:59 :00 No [id number] Unavailable 50 mg AT BEDTIME 50 mg AT BEDTIME (route: oral) Med Classific ation: Central Nervous System Agents Asmanex HFA 100 mcg/actuati on aerosol inhaler 08-29 00:00: 00 Yes [id number] 2 puff TWICE DAILY 2 puff TWICE DAILY (route: inhalation ) Med Classific ation: Respirato ry Therapy Agents atorvastati n 80 mg tablet 08-29 00:00: 00 Yes [id number] Unavailable 80 mg BEDTIME 80 mg BEDTIME (route: oral) Med Classific ation: Cardiovas cular Therapy Agents carvedilol 25 mg tablet 08-29 00:00: 00 Yes [id number] Unavailable 25 mg TWICE DAILY 25 mg TWICE DAILY (route: oral) Med Classific ation: Cardiovas cular Therapy Agents clopidogrel 75 mg tablet 08-29 00:00: 00 Yes [id number] 75 mg EVERY AM 75 mg EVERY AM (route: oral) Med Classific ation: Hematolog ical Agents docusate sodium 100 mg capsule 08-29 00:00: 00 09-25 23:59 :00 No [id number] Unavailable 100 mg TWICE DAILY 100 mg TWICE DAILY (route: oral) Med Classific ation: Gastroint estinal Therapy Agents escitalopra m 20 mg tablet 08-29 00:00: 00 Yes [id number] Unavailable 20 mg EVERY PM 20 mg EVERY PM (route: oral) Med Classific ation: Central Nervous System Agents FeroSul 325 mg (65 mg iron) tablet 08-29 00:00: 00 09-25 23:59 :00 No [id number] Unavailable 325 mg TWICE DAILY IN THE MORNING AND AT BEDTIME 325 mg TWICE DAILY IN THE MORNING AND AT BEDTIME (route: oral) Med Classific ation: Electroly te Balance-N utritiona l Products gabapentin 800 mg tablet 08-29 00:00: 00 09-22 23:59 :00 No [id number] 800 mg 2 TIMES DAILY 800 mg 2 TIMES DAILY (route: oral) Med Classific ation: Central Nervous System Agents hydralazine 25 mg tablet 08-29 00:00: 00 09-22 23:59 :00 No [id number] Unavailable 25 mg 3 TIMES DAILY 25 mg 3 TIMES DAILY (route: oral) Med Classific ation: Cardiovas cular Therapy Agents hydralazine 50 mg tablet 08-29 00:00: 00 09-25 23:59 :00 No [id number] Unavailable 50 mg THREE TIMES DAILY IN THE MORNING AT 50 mg THREE TIMES DAILY IN THE MORNING AT (route: oral) Med Classific ation: Cardiovas cular Therapy Agents mirtazapine 45 mg tablet 08-29 00:00: 00 Yes [id number] Unavailable 45 mg AT BEDTIME 45 mg AT BEDTIME (route: oral) Med Classific ation: Central Nervous System Agents omeprazole 20 mg capsule,del ayed release 08-29 00:00: 00 Yes [id number] 20 mg TWICE DAILY 20 mg TWICE DAILY (route: oral) Med Classific ation: Gastroint estinal Therapy Agents lisinopril 40 mg tablet 09-25 00:00: 00 Yes [id number] 40 mg DAILY 40 mg DAILY (route: oral) Med Classific ation: Cardiovas cular Therapy Agents metformin 1,000 mg tablet 09-25 00:00: 00 09-22 23:59 :00 No [id number] 1000 mg 2 TIMES DAILY 1000 mg 2 TIMES DAILY (route: oral) Med Classific ation: Endocrine multivitami n tablet 09-25 00:00: 00 Yes [id number] 1 tablet DAILY 1 tablet DAILY (route: oral) Med Classific ation: Electroly te Balance-N utritiona l Products nifedipine ER 60 mg tablet,exte nded release 09-25 00:00: 00 Yes [id number] 60 mg EVERY PM 60 mg EVERY PM (route: oral) Med Classific ation: Cardiovas cular Therapy Agents pioglitazon e 15 mg tablet 09-25 00:00: 00 Yes [id number] 15 mg DAILY 15 mg DAILY (route: oral) Med Classific ation: Endocrine Tresiba FlexTouch U-100 insulin 100 unit/mL (3 mL) subcutaneou s pen 09-25 00:00: 00 Yes [id number] 10 In unit DAILY 10 In unit DAILY (route: subcutaneo ) Med Classific ation: Endocrine aspirin 81 mg tablet 09-22 00:00: 00 Yes [id number] 1 tablet DAILY 1 tablet DAILY (route: oral) Med Classific ation: Hematolog ical Agents docusate sodium 100 mg capsule 09-22 00:00: 00 Yes [id number] 1 capsule 2 TIMES DAILY 1 capsule 2 TIMES DAILY (route: oral) Med Classific ation: Gastroint estinal Therapy Agents ferrous sulfate 325 mg (65 mg iron) tablet 09-22 00:00: 00 Yes [id number] 1 tablet 2 TIMES DAILY 1 tablet 2 TIMES DAILY (route: oral) Med Classific ation: Electroly te Balance-N utritiona l Products isosorbide mononitrate ER 30 mg tablet,exte nded release 24 hr 09-22 00:00: 00 Yes [id number] 1 tablet DAILY 1 tablet DAILY (route: [...] FOR SAFETY AND WILL NOTIFY CLINICAL SENIOR GENETIC COUNSELOR AND PHYSICIAN/PROVIDER WITH ANY CHANGE IN CONDITION. [code = SKILLED NURSE WILL MAINTAIN SITUATIONAL AWARENESS FOR SAFETY AND WILL NOTIFY CLINICAL SENIOR GENETIC COUNSELOR AND PHYSICIAN/PROVIDER WITH ANY CHANGE IN CONDITION.] [...] RECERTIFIC ATION ERIC EDDY [facility] [id number] 48.39
== END 2024-12-31 14:29 | disposition home or self-care (01) ==
LOC: HO.HCS 13:30
PROVIDERS: PCP Family Medicine; Visit Provider Nurse Practitioner Family
DX: I25.10 Atherosclerotic heart disease of native coronary artery without angina pectoris (principal); Z98.890 Other specified postprocedural states; I65.23 Occlusion and stenosis of bilateral carotid arteries; Z01.810 Encounter for preprocedural cardiovascular examination; I10 Essential (primary) hypertension
CPT/HCPCS: 93010; 99214

== ENCOUNTER → 2024-12-31 13:29 | Outpatient (BNVA) | payer MEDICAID, SELFPAY | PROVIDERS: PCP Family Medicine; Visit Provider Nurse Practitioner Family | DX: Z01.810 Encounter for preprocedural cardiovascular examination (principal); I25.10 Atherosclerotic heart disease of native coronary artery without angina pectoris; I65.23 Occlusion and stenosis of bilateral carotid arteries; I10 Essential (primary) hypertension | CPT/HCPCS: 93005; 99212 ==

== ENCOUNTER 2025-01-28 10:02 | Outpatient (AMB) | payer MEDICAID, SELFPAY ==
[2025-01-28 10:08] VITALS: BP 122/56; PULSE 81; O2SAT 97; BMI 27.7
--- NOTE | 2025-01-28 10:08 | HO.NEPHOV ---
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: [employer] Offered & Declined (Daughter will translate ) Accompanied by: Daughter Allergies latex (LATEX) Allergy (Severe, Verified 01/28/25 10:10) RASH naproxen (From NAPROSYN) Adverse Reaction (Intermediate, Verified 01/28/25 10:10) TACHYCARDIA Medication List - Last Reconciled 01/28/25 by Pratik Horn MD albuterol sulfate 90 mcg/actuation (Ventolin HFA) 2 puffs inhalation Q6H PRN apixaban (Eliquis) 5 mg PO BID blood sugar diagnostic (FreeStyle Lite Strips) As directed carvedilol (Coreg) 25 mg PO BID clopidogrel (Plavix) 75 mg PO DAILY docusate sodium 100 mg PO BID empagliflozin-metformin 12.5-1,000 mg (Synjardy) 1 tab PO BID escitalopram oxalate (Lexapro) 20 mg PO DAILY@1800 ezetimibe 10 mg PO DAILY ferrous sulfate 325 mg PO BID PRN fluticasone propionate 50 mcg/actuation 2 sprays intranasal DAILY hydrochlorothiazide 50 mg PO DAILY insulin degludec (Tresiba FlexTouch U-100 insulin) 14 units subcut DAILY isosorbide mononitrate ER 30 mg PO DAILY mirtazapine 45 mg PO BEDTIME mometasone 100 mcg/actuation (Asmanex HFA) 2 puffs inhalation BID nifedipine ER 90 mg PO BEDTIME omeprazole 40 mg PO BIDWM@0800,1700 pioglitazone 15 mg PO DAILY 30 days rosuvastatin 40 mg PO DAILY semaglutide (Ozempic) 0.5 mg subcut FR telmisartan 80 mg PO DAILY HPI Comments Details: . Rocío is a 62-year-old woman with a significant vascular disease and resistant hypertension. She is on multiple antihypertensive medications in the blood pressure is still suboptimal. She did not bring her list of medications. However from the available data it appears that she is on amlodipine 10 mg carvedilol 25 mg twice a day clonidine patch, hydralazine 50 mg t.i.d. lisinopril 40 mg and hydrochlorothiazide 25 mg. She tells me that she has been compliant with her medications. There is a question of renal artery stenosis. However she had a Doppler ultrasound a year ago which was inconclusive however she had a CT angiogram in 2021 which did not reveal any significant renal artery stenosis. She has normal renal function with a creatinine of less than 1. She has non nephrotic range proteinuria with a urine protein creatinine ratio revealing 1000 mg of protein excretion. She has carotid artery disease with 60-70% mid RCA stenosis History of peripheral vascular disease status post fem-pop bypass surgery and left femoral endarterectomy and left popliteal thrombectomy. She has a history of smoking for many years. She continues to smoke half a pack per day. She has dyslipidemia with a total cholesterol of 240 and LDL of 165. She is on atorvastatin 80 mg daily. 07/27/2023. She is accompanied by her daughter. She is tolerating Aldactazide. Yesterday her blood pressure was around 200 mm Hg systolic. However she did not take her medications yesterday. Today she is feeling fine office readings are excellent. Renal angiogram is still pending 08/21/2023. Accompanied by her daughter. She tells me that her blood pressure increases every time she takes hydralazine therefore she stopped taking hydralazine. At present she is on lisinopril 40 mg and Aldactazide 25/25 1 a day. Upon talking to her I am not sure if she is really taking her medications. She was scheduled for renal angiogram next week. No specific complaints today 11/10/2023. She underwent renal angiogram which did not reveal any stenosis of large arteries. He was in the ER twice with elevated blood pressure. She was scheduled for coronary angiogram next month in [facility]. She did not bring her medications today but it was cross checked with pharmacy 11/15/2023. Seen [place] [facility] 2 days [place]. Here for follow up with family. She was scheduled for coronary angiogram in the next few weeks All medications were reviewed 01/30/24 Bp well controlled. Cardiac work up in progress 04/11/24 c/o LEg edema Cardiac follow up on April 24 08/08/24 The patient is a 63-year-old female presenting with concerns related to kidney function and high blood pressure management. She has been experiencing peripheral edema, which is suspected to be exacerbated by her current medication regimen. The edema is causing discomfort, and there is a concern that increasing her medication dosage may worsen the swelling. The patient is also on prednisone for lung issues, which has led to elevated blood glucose levels. Adjustments to her insulin regimen have been necessary to manage the hyperglycemia. Her kidney function appears stable based on recent laboratory evaluations. 01/28/25 CEA postponed due to high risk [facility] Medical History Smoker Chronic anemia NSTEMI (non-ST elevated myocardial infarction) Mild aortic valve stenosis LORE (obstructive sleep apnea) Chronic low back pain Lumbar spinal stenosis HTN (hypertension) Vitamin D deficiency HLD (hyperlipidemia) T2DM (type 2 diabetes mellitus) H. pylori infection CAD (coronary artery disease) Cyst (solitary) of breast Kidney calculi Arthritis Asthma HTN (hypertension) Diabetes Surgical History Hx of vascular surgery (05/18/20) History of right-sided carotid endarterectomy (~11/2022) S/P aortogram History of esophagogastroduodenoscopy (EGD) Hx of colonoscopy History of breast surgery (~1983) History of cardiac cath Family History Mother Diabetes Liver cancer Social History Household Members: Other Household Members Other:: friend and adult son Housing: Apartment Are you a primary healthcare liaison to a significant other at home: No Do you presently have visiting nurse or other home services: Yes Alcohol intake: never Comment: refuses bed alarm Patient Tobacco Use Status: Current everyday Tobacco user Tobacco use type: Cigarette Cigarette Packs Per Day: 1 Cigarettes Per Day: 2 Years Smoked: 30 e-Cigarette/Vaping Use: Currently Using Second Hand Smoke Exposure: Yes Advance Directives Date on File: 09/26/23 service: No Current occupational status: unemployed and disabled Physical Exam Exam Exam: Physical Exam General: Awake. Comfortable. HENT: Neck supple. Mucosa moist. Pulmonary: Lungs aeration equal. No rales. Cardiology: Heart S1-S2 heard. No gallop. Abdomen: Soft. Non tender. Bowel sounds normal. Neurologic: No involuntary movements. No myoclonus. Extremities: No edema. No rash. Vital Signs: Last Vital Signs Pulse 81 01/28/25 10:08 BP 122/56 L 01/28/25 10:08 Pulse Ox 97 01/28/25 10:08 Oxygen Delivery Method Room Air 01/28/25 10:08 BMI result Body Mass Index 27.7 Results Reviewed Nephrology Results: Hgb, (12.0-16.0) 12.1 g/dl 12/17/24 WBC, (4.8-10.8) 5.7 X10*3/uL 12/17/24 Plt Count, (160-400) 312 X10*3/uL 12/17/24 Sodium, (135-145) 138 mmol/L 12/17/24 Potassium, (3.3-5.1) 3.8 mmol/L 12/17/24 Chloride, (96-108) 107 mmol/L 12/17/24 Carbon Dioxide, (22-29) 26 mmol/L 12/17/24 BUN, (9-16) 11 mg/dL 12/17/24 Creatinine, (0.5-1.4) 0.82 mg/dL 12/17/24 Calcium, (8.4-10.2) 8.1 mg/dL L 12/17/24 Renal US 09/27/22 Assessment & Plan Assessment & Plan (1) Hypertension: Code(s): I10 - Essential (primary) hypertension Category: Medical Plan: Blood pressure goal less than 130/80. Well controlled at this time. Medications reviewed and no changes are made. (2) CAD (coronary artery disease): Comment: cath 2016, med managed Code(s): I25.10 - Atherosclerotic heart disease of [place] coronary artery without angina pectoris Category: Medical Plan: Significant coronary artery disease as seen on most recent catheterization 11/30/2023. She did have cardiac surgery evaluation. Surgery was postponed due to elevated hemoglobin A1c. Since then patient has decided to not undergo coronary artery bypass grafting. She is not having anginal symptoms at present. EKG today showing nonspecific ST and T-wave abnormalities, no significant change from prior. Going forward she need coronary artery stenting, PCI to the RCA then left circumflex and LAD. Continue Plavix and Eliquis. Continue isosorbide, carvedilol, nifedipine for good blood pressure control. Continue rosuvastatin with ideal LDL goal less than 70. (3) History of cardiac cath: Comment: 11/30/2023, distal left main 40%, diffuse proximal and distal RCA stenosis in the range of 70-75%, proximal LAD involving the ostium 70% stenosis heavy calcification, [id number]-[id number] diffuse disease in the LAD otherwise, circumflex has diffuse moderate stenosis with focal areas up to 70% stenosis. She was managed medically. NSTEMI at that time was thought to be related to elevated blood pressures. Code(s): Z98.890 - Other specified postprocedural states Category: Surgical (4) Bilateral carotid artery stenosis: Comment: 11/28/2022 - right carotid endarterectomy Code(s): I65.23 - Occlusion and stenosis of bilateral carotid arteries Category: Medical Plan: Known bilateral carotid stenosis. Bruits noted on examination. History of right carotid endarterectomy. Most recent ultrasound showing significant left carotid stenosis with plan for left carotid endarterectomy. (5) PVD (peripheral vascular disease): Comment: Carotid stenosis Code(s): I73.9 - Peripheral vascular disease, unspecified Category: Medical Plan: Surgery cancelled due to high risk Follow with (6) Proteinuria: Code(s): R80.9 - Proteinuria, unspecified Category: Medical (7) Anemia: Code(s): D64.9 - Anemia, unspecified Category: Medical (8) T2DM (type 2 diabetes mellitus): Code(s): E11.9 - Type 2 diabetes mellitus without complications Category: Medical Qualifiers: Diabetes mellitus [facility] insulin use: without assistant terminal manager use Diabetes mellitus complication status: with ophthalmic complications Diabetes mellitus complication detail: with diabetic retinopathy Diabetic retinopathy severity: with mild nonproliferative retinopathy Diabetes mellitus macular edema: with macular edema Laterality: bilateral Qualified Code(s): E11.3213 - Type 2 diabetes mellitus with mild nonproliferative diabetic retinopathy with macular edema, bilateral Plan Plan Orders: Orders Basic Metabolic Panel 6 Months I10 - Essential (primary) hypertension Coding Level of Care Code Est Pt Level 4 (85090) Diagnoses Hypertension I10 CAD (coronary artery disease) I25.10 History of cardiac cath Z98.890 Bilateral carotid artery stenosis I65.23 PVD (peripheral vascular disease) I73.9 Proteinuria R80.9 Anemia D64.9 Type 2 diabetes mellitus with both eyes affected by mild nonproliferative retinopathy and macular edema, without long-term current use of insulin E11.3213 Diabetes mellitus assistant terminal manager insulin use: without [facility] use Diabetes mellitus complication status: with ophthalmic complications Diabetes mellitus complication detail: with diabetic retinopathy Diabetic retinopathy severity: with mild nonproliferative retinopathy Diabetes mellitus macular edema: with macular edema Laterality: bilateral
--- OUTSIDE RECORDS SUMMARY | 2025-01-28 12:21 | XMS_ITS | Encounter Summary ---
Author Organization [employer] Address 75 [facility] 7t [place] [address] Care Team Providers Care Paint Process Engineer Name Role Phone Radha Jamison DO Primary Care Provider Nelia Sullivan PharmD Unavailable Letty Rinaldi Unavailable Dalila Carson RN Unavailable [phone] Ekta Reynolds Unavailable Reason for Visit * Reason Comments Med Refill Encounter Details Date Type Department Care Team (Late st Contact Info) Description 05/07/2024 Refill [facility] MEDICINE [address] [place], [place] [phone] Radha Jamison DO 230 [place], [place] [phone] Social History Tobacco Use Types Packs/Day Years [...] Care Team (Late st Contact Info) Description 02/11/2025 10:30 AM EST Medication Management [facility] MEDICINE [address] [place] [address] Nelia Sullivan PharmD 230 [place] [address] 03/13/2025 9:30 AM EST Office Visit [facility] OPTOMETRY [address] [place] [address] Radha Taylor, OD [address] [place] [address] documented as of this encounter Goals Goal Patient Goal Type Associated Problems Recent Progress Patient-Stated? Author Record your blood pressure once per day Blood Pressure No Nelia Sullivan, PharmD Blood Pressure < 140/90 Blood Pressure 120/58(2024 10:33 AM EST) No PuiaYazminsa, PharmD Smoking cessation General No Puia, Nelia, [...] documented as of this encounter Care Teams Paint Process Engineer Relationship Specialty Start Date End Date Radha Jamison DO 230 [place] [address] PCP - General Family Medicine 01/26/12 Nelia Sullivan, PharmD 230 [place] [address] Pharmacist Internal Medicine 08/31/23 Letty Rinaldi 12/16/24 12/18/24 Dalila Carson, JOANN [address] [place] [address] Registered Nurse Family Medicine 12/31/24 Ekta Reynolds 12/31/24 Laurel Monterroso Cupola Melting SupervisorTable Games Dual Rate Supervisor 10/27/22 Saige Aguilar 09/26/23 documented as of this encounter
--- OUTSIDE RECORDS SUMMARY | 2025-01-28 12:21 | XMS_ITS | Encounter Summary ---
Author Organization [employer] Address 75 [facility] 7t [place] [address] Care Team Providers Care Crusher Operator Name Role Phone Radha Jamison DO Primary Care Provider Nelia Sullivan PharmD Unavailable Letty Rinaldi Unavailable Dalila Carson RN Unavailable [phone] Ekta Reynolds Unavailable Reason for Visit * Reason Comments Med Refill Encounter Details Date Type Department Care Team (Late st Contact Info) Description 03/19/2024 Refill [facility] MEDICINE 230 [place], [place] [phone] Radha Jamison DO 230 [place], [place] [phone] Chronic bilateral low back pain, unspecified whether [...] Description 02/11/2025 10:30 AM EST Medication Management [facility] MEDICINE 230 [place] [address] Nelia Sullivan, PharmD 230 [place] [address] 03/13/2025 9:30 AM EST Office Visit [facility] OPTOMETRY [address] [place] [address] Radha Taylor, OD 267 [place] [address] documented as of this encounter Goals Goal Patient Goal Type Associated Problems Recent Progress Patient-Stated? Author Record your blood pressure once per day Blood Pressure No Puia, Nelia, PharmD Blood Pressure < 140/90 Blood Pressure 120/58(2024 10:33 AM EST) No Nelia Sullivan, PharmD Smoking [...] documented as of this encounter Care Teams Crusher Operator Relationship Specialty Start Date End Date Radha Jamison DO 230 [place] [address] PCP - General Family Medicine 01/26/12 Nelia Sullivan PharmD 230 [place] [address] Pharmacist Internal Medicine 08/31/23 Letty Rinaldi 12/16/24 12/18/24 Dalila Carson, JOANN [address] [place] [address] Registered Nurse Family Medicine 12/31/24 Ekta Reynolds 12/31/24 Laurel Monterroso Television Equipment OperatorFoundation Engineer 10/27/22 Saige Aguilar 09/26/23 documented as of this encounter
--- OUTSIDE RECORDS SUMMARY | 2025-01-28 12:21 | XMS_ITS | Encounter Summary ---
Author Organization [employer] Address 75 [facility] 7t [place] [address] Care Team Providers Care Clinical Operations Consultant Name Role Phone Radha Jamison DO Primary Care Provider Nelia Sullivan PharmD Unavailable Letty Rinaldi Unavailable Dalila Carson RN Unavailable Ekta Reynolds Unavailable Reason for Visit * Reason Comments Med Refill Encounter Details Date Type Department Care Team (Late st Contact Info) Description 02/29/2024 Refill [facility] MEDICINE 230 [place], [place] [phone] Radha Jamison DO 230 [place], [place] [phone] Chronic bilateral low back pain, unspecified whether [...] until seen by PCP or seen by CASING CLEANER. Scheduled CASING CLEANER 03/05/24. documented in this encounter Plan of Treatment Upcoming Encounters Date Type Department Care Team (Late st Contact Info) Description 02/11/2025 10:30 AM EST Medication Management [facility] MEDICINE 230 [place] [address] Nelia Sullivan, PharmD 230 [place], [place] [phone] 03/13/2025 9:30 AM EST Office Visit [facility] OPTOMETRY [address] [place] [address] Radha Taylor, OD 267 [place] [address] documented as of this encounter Goals Goal Patient Goal Type Associated Problems Recent Progress Patient-Stated? Author Record your blood pressure once per day Blood Pressure No Puia, Nelia, PharmD Blood Pressure < 140/90 Blood Pressure 120/58(2024 10:33 AM EST) No Puia, Nelia, PharmD Smoking [...] as of this encounter Care Teams Clinical Operations Consultant Relationship Specialty Start Date End Date Radha Jamison DO 230 [place] [address] PCP - General Family Medicine 01/26/12 Puia, Nelia, PharmD 230 [place] [address] Pharmacist Internal Medicine 08/31/23 Letty Rinaldi 12/16/24 12/18/24 Dalila Carson RN [address] [place] [address] Registered Nurse Family Medicine 12/31/24 Ekta Reynolds 12/31/24 Laurel Monterroso Film Or Videotape EditorOdd Bundle Worker 10/27/22 Saige Aguilar 09/26/23 documented as of this encounter
--- OUTSIDE RECORDS SUMMARY | 2025-01-28 12:21 | XMS_ITS | Encounter Summary ---
Author Organization [employer] Address 75 [facility] 7t [place] [address] Care Team Providers Care Asphalt Spreader Operator Name Role Phone Radha Jamison DO Primary Care Provider [phone] Abdias Murillo PharmD Unavailable Unavail able Nelia Sullivan PharmD Unavailable [phone] Letty Rinaldi Unavailable Dalila Carson RN Unavailable Ekta Reynolds Unavailable Reason for Visit * Reason Comments Med Refill Encounter Details Date Type Department Care Team (Late st Contact Info) Description 08/11/2022 Refill [facility] MEDICINE 230 [place], [place] [phone] Radha Jamison DO 230 [place], [place] [phone] Anemia, unspecified type Social History Tobacco Use [...] for patient to contact Mary Reynolds at [phone]. documented in this encounter Plan of Treatment Upcoming Encounters Date Type Department Care Team (Late st Contact Info) Description 02/11/2025 10:30 AM EST Medication Management [facility] MEDICINE [address] [place] [address] Nelia Sullivan PharmD [address] [place] [address] 03/13/2025 9:30 AM EST Office Visit [facility] OPTOMETRY [address] [place] [address] Tarka, Radha, OD 267 [place] [address] documented as of this encounter Goals Goal [...] documented as of this encounter Care Teams Asphalt Spreader Operator Relationship Specialty Start Date End Date Radha Jamison DO [address] [place] [address] PCP - General Family Medicine 01/26/12 Abdias Murillo, PharmD [address] [place] [address] Pharmacist Internal Medicine 03/21/22 08/30/23 Nelia Sullivan, KeithD 230 [place] [address] Pharmacist Internal Medicine 08/31/23 Letty Rinaldi 12/16/24 12/18/24 Dalila Carson, RN [address] [place] [address] Registered Nurse Family Medicine 12/31/24 Ekta Reynolds 12/31/24 Laurel Monterroso Extension Service AdvisorLoan Interviewer 10/27/22 Saige Aguilar 09/26/23 documented as of this encounter
--- OUTSIDE RECORDS SUMMARY | 2025-01-28 12:21 | XMS_ITS | Encounter Summary ---
Author Organization [employer] Address 75 [facility] 7t [place] [address] Care Team Providers Care Rotary Surface Grinder Name Role Phone Radha Jamison DO Primary Care Provider Nelia Sullivan PharmD Unavailable Letty Rinaldi Unavailable Dalila Carson RN Unavailable [phone] Ekta Reynolds Unavailable Reason for Visit * Reason Comments Med Refill Encounter Details Date Type Department Care Team (Late st Contact Info) Description 05/17/2024 Refill [facility] MEDICINE 230 [place], [place] [phone] Radha Jamison DO 230 [place], [place] [phone] Chronic bilateral low back pain, unspecified whether [...] Description 02/11/2025 10:30 AM EST Medication Management [facility] MEDICINE [address] [place] [address] Nelia Sullivan, PharmD 230 [place] [address] 03/13/2025 9:30 AM EST Office Visit [facility] OPTOMETRY 267 [place] [address] Radha Taylor, OD 267 [place] [address] documented as of this encounter Goals Goal [...] documented as of this encounter Care Teams Rotary Surface Grinder Relationship Specialty Start Date End Date Radha Jamison DO 230 [place] [address] PCP - General Family Medicine 01/26/12 Nelia Sullivan PharmD [address] [place] [address] Pharmacist Internal Medicine 08/31/23 Letty Rinaldi 12/16/24 12/18/24 Dalila Carson, JOANN [address] [place] [address] Registered Nurse Family Medicine 12/31/24 Ekta Reynolds 12/31/24 Laurel Monterroso Sulfuric Acid Plant SupervisorSystems Testing Laboratory Technician 10/27/22 Saige Aguilar 09/26/23 documented as of this encounter
--- OUTSIDE RECORDS SUMMARY | 2025-01-28 12:21 | XMS_ITS | Encounter Summary ---
Author Organization [employer] Address 75 [facility] 7t [place] [address] Care Team Providers Care Sous Chef Kitchen Manager Name Role Phone Radha Jamison DO Primary Care Provider Abdias Murillo PharmD Unavailable Unavail able Nelia Sullivan PharmD Unavailable Letty Rinaldi Unavailable Dalila Carson RN Unavailable [phone] Ekta Reynolds Unavailable Reason for Visit * Reason Onset Date Comments uber 05/08/2023 Encounter Details Date Type Department Care Team (Late st Contact Info) Description 05/08/2023 Telephone [facility] MEDICINE 230 [place], [place] [phone] Radha Jamison DO 230 [place], [place] [phone] uber Social History Tobacco Use Types Packs/Day [...] / denial letter via mail. PT-1 Request [id number] Pending . [facility] [address] [place] [address] Tray Casting Machine Operator noticed pt has pending referrals. Tray Casting Machine Operator has added a note to each to add PT1 for referred tooffice. * Telephone Encounter - Ginna Stephen RN - 05/10/2023 9:31 AM EDT Uber booked for tomorrow 8:45am. TC placed to pt. And made pt. Aware. Pt. Also reports PT-1 expiredand would like it renewed for next time, to [facility] * Telephone Encounter - Ciera Carson - 05/10/2023 9:07 AM EDT Tc from pt calling in regards to message above. Pt also received a call, technical document writer does not see any documentation. Please contact pt at [phone] * Telephone Encounter - Ciera Alli - 05/08/2023 12:54 PM EDT Tc from pt states will need uber transportation for 05/10 OV with provider. Please contact pt at [phone] documented in this encounter Plan of Treatment Upcoming Encounters Date Type Department Care Team (Late st Contact Info) Description 02/11/2025 10:30 AM EST Medication Management [facility] MEDICINE 230 [place] [address] Nelia Sullivan PharmD [address] [place] [address] 03/13/2025 9:30 AM EST Office Visit [facility] OPTOMETRY [address] [place] [address] Radha Taylor, OD 267 [place] [address] documented as of this encounter Goals Goal [...] documented as of this encounter Care Teams Sous Chef Kitchen Manager Relationship Specialty Start Date End Date Radha Jamison DO [address] [place] [address] PCP - General Family Medicine 01/26/12 Abdias Murillo, PharmD [address] [place] [address] Pharmacist Internal Medicine 03/21/22 08/30/23 Nelia Sullivan PharmD [address] [place] [address] Pharmacist Internal Medicine 08/31/23 Letty Rinaldi 12/16/24 12/18/24 Dalila Carson, RN [address] [place] [address] Registered Nurse Family Medicine 12/31/24 Ekta Reynolds 12/31/24 Laurel Monterroso EngrosserHair Colorist 10/27/22 Saige Aguilar 09/26/23 documented as of this encounter
--- OUTSIDE RECORDS SUMMARY | 2025-01-28 12:21 | XMS_ITS | Encounter Summary ---
Author Organization [employer] Address 75 [facility] 7t h Floor [address] Care Team Providers Care Windows Laptop Technician Name Role Phone Radha Jamison DO Primary Care Provider Abdias Murillo PharmD Unavailable Unavail able Nelia Sullivan PharmD Unavailable [phone] Letty Rinaldi Unavailable Dalila Carson RN Unavailable [phone] Ekta Reynolsd Unavailable Reason for Visit * Reason Comments Med Refill Encounter Details Date Type Department Care Team (Late st Contact Info) Description 04/14/2023 Refill [facility] MEDICINE 230 [place], [place] [phone] Radha Jamison DO 230 [place], [place] [phone] Type 2 diabetes mellitus with hyperglycemia, with long-term current use of insulin ([facility]) Social History Tobacco Use Types Packs/Day Years [...] Description 02/11/2025 10:30 AM EST Medication Management [facility] MEDICINE 230 [place] [address] Nelia Sullivan PharmD [address] [place] [address] 03/13/2025 9:30 AM EST Office Visit [facility] OPTOMETRY [address] [place] [address] TarkaRadha, OD 267 [place] [address] documented as of this encounter Goals Goal [...] documented as of this encounter Care Teams Windows Laptop Technician Relationship Specialty Start Date End Date Jurcsak, Radha, DO 230 [place], [place] [phone] PCP - General Family Medicine 01/26/12 Abdias Murillo, KeithD [address] [place] [address] Pharmacist Internal Medicine 03/21/22 08/30/23 Nelia Sullivan PharmD [address] [place] [address] Pharmacist Internal Medicine 08/31/23 Letty Rinaldi 12/16/24 12/18/24 Dalila Carson, JOANN [address] [place] [address] Registered Nurse Family Medicine 12/31/24 Ekta Reynolds 12/31/24 Laurel Monterroso Shingles RooferMicrosoft Crm Developer 10/27/22 Saige Aguilar 09/26/23 documented as of this encounter
--- OUTSIDE RECORDS SUMMARY | 2025-01-28 12:21 | XMS_ITS | Encounter Summary ---
Author Organization [employer] Address 75 [facility] 7t [place] [address] Care Team Providers Care Medication Aid Name Role Phone Radha Jamison DO Primary Care Provider Nelia Sullivan PharmD Unavailable [phone] Letty Rinaldi Unavailable Dalila Carson RN Unavailable Ekta Reynolds Unavailable Reason for Visit * Reason Onset Date Comments Returning Call 01/17/2024 Hospital Follow-up 01/17/2024 Encounter Details Date Type Department Care Team (Late st Contact Info) Description 01/17/2024 Telephone [facility] MEDICINE [address] [place], [place] [phone] Radha Jamison DO 230 [place], [place] [phone] Returning Call ; Hospital Follow-up Social History [...] Description 02/11/2025 10:30 AM EST Medication Management [facility] MEDICINE [address] [place] [address] Nelia Sullivan, PharmD 230 [place], [place] [phone] 03/13/2025 9:30 AM EST Office Visit [facility] OPTOMETRY [address] [place], [place] [phone] Radha Taylor, OD 267 [place] [address] documented as of this encounter Goals Goal Patient Goal Type Associated Problems Recent Progress Patient-Stated? Author Record your blood pressure once per day Blood Pressure No Puia, Nelia, PharmD Blood Pressure < 140/90 Blood Pressure 120/58(2024 10:33 AM EST) No Puia Nelia, PharmD Smoking cessation General No Puia Nelia, PharmD Patient will adhere to medication regimen General No Puia Nelia, PharmD Hemoglobin A1c < 7 Result Component 10.1(12/07/19 12:48 PM EDT) No DelAbdias hardy, PharmD [...] documented as of this encounter Care Teams Medication Aid Relationship Specialty Start Date End Date Radha Jamison DO 230 [place] [address] PCP - General Family Medicine 01/26/12 Puia, Nelia, PharmD 230 [place] [address] Pharmacist Internal Medicine 08/31/23 Letty Rinaldi 12/16/24 12/18/24 Dalila Carson RN [address] [place] [address] Registered Nurse Family Medicine 12/31/24 Ekta Reynolds 12/31/24 Laurel Monterroso Credit ClerkCloth Laminating Supervisor 10/27/22 Saige Aguilar 09/26/23 documented as of this encounter
--- OUTSIDE RECORDS SUMMARY | 2025-01-28 12:21 | XMS_ITS | Encounter Summary ---
Author Organization [employer] Address 75 [facility] 7t [place] [address] Care Team Providers Care Cotton Chopper Name Role Phone Radha Jamison DO Primary Care Provider Nelia Sullivan PharmD Unavailable Letty Rinaldi Unavailable Dalila Carson RN Unavailable [phone] Ekta Reynolds Unavailable Reason for Visit * Reason Comments Med Refill Encounter Details Date Type Department Care Team (Late st Contact Info) Description 03/05/2024 Telephone [facility] MEDICINE 230 [place], [place] [phone] Radha Jamison DO 230 [place], [place] [phone] Med Refill Social History Tobacco Use Types [...] Description 02/11/2025 10:30 AM EST Medication Management [facility] MEDICINE 230 [place] [address] Neila Sullivan PharmD 230 [place] [address] 03/13/2025 9:30 AM EST Office Visit [facility] OPTOMETRY [address] [place] [address] Radha Taylor, OD [address] [place] [address] documented as of this encounter Goals Goal [...] documented as of this encounter Care Teams Cotton Chopper Relationship Specialty Start Date End Date Radha Jamison DO [address] [place] [address] PCP - General Family Medicine 01/26/12 Nelia Sullivan PharmD [address] [place] [address] Pharmacist Internal Medicine 08/31/23 Letty Rinaldi 12/16/24 12/18/24 Dalila Carson, JOANN [address] [place] [address] Registered Nurse Family Medicine 12/31/24 Ekta Reynolds 12/31/24 Laurel Monterroso Tier Lift OperatorOps Manager 10/27/22 Saige Aguilar 09/26/23 documented as of this encounter
--- OUTSIDE RECORDS SUMMARY | 2025-01-28 12:21 | XMS_ITS | Encounter Summary ---
Author Organization [employer] Address 75 [facility] 7t [place] [address] Care Team Providers Care Plodder Operator Name Role Phone Radha Jamison DO Primary Care Provider [phone] Nelia Sullivan PharmD Unavailable Letty Rinaldi Unavailable Dalila Carson RN Unavailable [phone] Ekta Reynolds Unavailable Reason for Visit * Reason Comments Med Refill Encounter Details Date Type Department Care Team (Late st Contact Info) Description 05/17/2024 Refill [facility] MEDICINE 230 [place], [place] [phone] Radha Jamison DO [address] [place], [place] [phone] Chronic bilateral low back pain, unspecified whether [...] Description 02/11/2025 10:30 AM EST Medication Management [facility] MEDICINE [address] [place] [address] Nelia Sullivan, PharmD [address] [place] [address] 03/13/2025 9:30 AM EST Office Visit [facility] OPTOMETRY [address] [place] [address] Radha Taylor, OD 267 [place] [address] documented as of this encounter Goals Goal [...] documented as of this encounter Care Teams Plodder Operator Relationship Specialty Start Date End Date Radha Jamison DO [address] [place] [address] PCP - General Family Medicine 01/26/12 Nelia Sullivan PharmD [address] [place] [address] Pharmacist Internal Medicine 08/31/23 Letty Rinaldi 12/16/24 12/18/24 Dalila Carson, JOANN [address] [place] [address] Registered Nurse Family Medicine 12/31/24 Ekta Reynolds 12/31/24 Laurel Monterroso Access RegistrarHouse Shorer 10/27/22 Saige Aguilar 09/26/23 documented as of this encounter
--- OUTSIDE RECORDS SUMMARY | 2025-01-28 12:21 | XMS_ITS ---
Author Organization [employer] Address 75 [facility] 7t [place] [address] Care Team Providers Care City Carrier Name Role Phone Radha Jamison DO Primary Care Provider Nelia Sullivan PharmD Unavailable [phone] Dalila Carson RN Unavailable Ekta Reynolds Unavailable [facility] Status:Outreach In Progress (Enrolling) Start date:12/31/2024 Enrollment reason:Referred by provider Overview Home Health Utilization- Please coordinate with Dalila for connection of services with [facility] for intermediate reduction. Please outreach for enrollment. Case Team Name Relationship Phone Ekta Reynolds(Responsible Staff) [phone] Continued Care and Services Coordination
--- OUTSIDE RECORDS SUMMARY | 2025-01-28 12:21 | XMS_ITS | Encounter Summary ---
Author Organization [employer] Address 75 [facility] 7t [place] [address] Care Team Providers Care Kettle Operator Name Role Phone Radha Jamison DO Primary Care Provider [phone] Abdias Murillo PharmD Unavailable Unavail able Nelia Sullivan PharmD Unavailable [phone] Letty Rinaldi Unavailable Dalila Carson RN Unavailable [phone] Ekta Reynolds Unavailable Encounter Details Date Type Department Care Team (Late st Contact Info) Description 06/15/2023 Orders Only [facility] MEDICINE 230 [place], [place] [phone] Radha Jamison DO 230 [place], [place] [phone] Stenosis of right carotid artery Social History [...] Description 02/11/2025 10:30 AM EST Medication Management [facility] MEDICINE 230 [place] [address] Nelia Sullivan, PharmD 230 [place] [address] 03/13/2025 9:30 AM EST Office Visit [facility] OPTOMETRY [address] [place] [address] Tarka, Radha, OD [address] [place] [address] documented as of this encounter Goals Goal [...] documented as of this encounter Care Teams Kettle Operator Relationship Specialty Start Date End Date Radha Jamison DO 230 [place] [address] PCP - General Family Medicine 01/26/12 Abdias Murillo, PharmD [address] [place] [address] Pharmacist Internal Medicine 03/21/22 08/30/23 Nelia Sullivan PharmD [address] [place] [address] Pharmacist Internal Medicine 08/31/23 Letty Rinaldi 12/16/24 12/18/24 Dalila Carson, JOANN [address] [place] [address] Registered Nurse Family Medicine 12/31/24 Ekta Reynolds 12/31/24 Laurel Monterroso Laser SpecialistCloth Bleaching Supervisor 10/27/22 Saige Aguilar 09/26/23 documented as of this encounter
--- OUTSIDE RECORDS SUMMARY | 2025-01-28 12:21 | XMS_ITS | Encounter Summary ---
Author Organization [employer] Address [address] [facility] 7t [place] [address] Care Team Providers Care Drawing In Machine Tender Name Role Phone Radha Jamison DO Primary Care Provider Nelia Sullivan PharmD Unavailable Letty Rinaldi Unavailable Dalila Carson RN Unavailable [phone] Ekta Reynolds Unavailable Reason for Visit * Reason Onset Date Comments Med Refill 05/07/2024 Encounter Details Date Type Department Care Team (Late st Contact Info) Description 05/07/2024 Telephone [facility] MEDICINE 230 [place], [place] [phone] Radha Jamison DO 230 [place], [place] [phone] Med Refill Social History Tobacco Use Types [...] immediate release tablet To be sent to: [facility] Pharmacy documented in this encounter Plan of Treatment Upcoming Encounters Date Type Department Care Team (Late st Contact Info) Description 02/11/2025 10:30 AM EST Medication Management [facility] MEDICINE 230 [place] [address] Nelia Sullivan, PharmD 230 [place] [address] 03/13/2025 9:30 AM EST Office Visit [facility] OPTOMETRY [address] [place] [address] Claudia Radha, OD [address] [place] [address] documented as of this encounter Goals Goal [...] documented as of this encounter Care Teams Drawing In Machine Tender Relationship Specialty Start Date End Date Radha Jamison DO 230 [place] [address] PCP - General Family Medicine 01/26/12 Puia, Nelia, PharmD 230 [place], [place] [phone] Pharmacist Internal Medicine 08/31/23 Letty Rinaldi 12/16/24 12/18/24 Dalila Carson RN 505 [place] [address] Registered Nurse Family Medicine 12/31/24 Ekta Reynolds 12/31/24 Laurel Monterroso Collar TurnerGeneral Office Worker 10/27/22 Saige Aguilar 09/26/23 documented as of this encounter
--- OUTSIDE RECORDS SUMMARY | 2025-01-28 12:21 | XMS_ITS | Encounter Summary ---
Author Organization [employer] Address 75 [facility] 7t [place] [address] Care Team Providers Care Dust Box Tender Name Role Phone Radha Jamison DO Primary Care Provider Nelia Sullivan PharmD Unavailable Letty Rinaldi Unavailable Dalila Carson RN Unavailable [phone] Ekta Reynolds Unavailable Reason for Visit * Reason Comments Med Refill Encounter Details Date Type Department Care Team (Late st Contact Info) Description 01/06/2024 Refill [facility] MEDICINE 230 [place], [place] [phone] Radha Jamison DO 230 [place], [place] [phone] Depression, unspecified depression type; Essential (primary) hypertension [...] 10:30 AM EST Medication Management [facility] MEDICINE 230 [place] [address] Nelia Sullivan, PharmD 230 [place] [address] 03/13/2025 9:30 AM EST Office Visit [facility] OPTOMETRY [address] [place] [address] Radha Taylor, OD [address] [place] [address] documented as of this encounter Goals Goal Patient Goal Type Associated Problems Recent Progress Patient-Stated? Author Record your blood pressure once per day Blood Pressure No Nelia Sullivan PharmD Blood Pressure < 140/90 Blood Pressure 120/58(2024 10:33 AM EST) No Nelia Sullivan PharmD Smoking [...] documented as of this encounter Care Teams Dust Box Tender Relationship Specialty Start Date End Date Radha Jamison DO 230 [place] [address] PCP - General Family Medicine 01/26/12 Nelia Sullivan PharmD 230 [place] [address] Pharmacist Internal Medicine 08/31/23 Letty Rinaldi 12/16/24 12/18/24 Dalila Carson, JOANN [address] [place] [address] Registered Nurse Family Medicine 12/31/24 Ekta Reynolds 12/31/24 Laurel Monterroso General AccountantAmmunition Specialist 10/27/22 Saige Aguilar 09/26/23 documented as of this encounter
--- OUTSIDE RECORDS SUMMARY | 2025-01-28 12:21 | XMS_ITS ---
Author Organization [employer] Address 75 [facility] 7t [place] [address] Care Team Providers Care Integrated Circuit Ic Layout Designer Name Role Phone Radha Jamison DO Primary Care Provider Nelia Sullivan PharmD Unavailable [phone] Dalila Carson RN Unavailable [phone] Ekta Reynolds Unavailable CM Complex Status:Outreach In Progress (Enrolling) Start date:12/31/2024 Enrollment reason:Referred by provider Overview Home Health Utilization- Please coordinate with Dalila for connection of services with CAD ENGINEER for assisted reduction. Case Team Name Relationship Phone Dalila Carson RN(Responsible Staff) Registered Nurse [phone] Continued Care and Services Coordination
--- OUTSIDE RECORDS SUMMARY | 2025-01-28 12:21 | XMS_ITS | Encounter Summary ---
Author Organization [employer] Address 75 [facility] 7t [place] [address] Care Team Providers Care Jewelry Designer Name Role Phone Radha Jamison DO Primary Care Provider Nelia Sullivan PharmD Unavailable Letty Rinaldi Unavailable Dalila Carson RN Unavailable [phone] Ekta Reynolds Unavailable Reason for Visit * Reason Onset Date Comments Med Refill 03/06/2024 Encounter Details Date Type Department Care Team (Late st Contact Info) Description 03/06/2024 Telephone [facility] MEDICINE 230 [place], [place] [phone] Radha Jamison DO 230 [place], [place] [phone] Med Refill Social History Tobacco Use Types [...] release tablet To be sent to: [facility] pharmacy documented in this encounter Plan of Treatment Upcoming Encounters Date Type Department Care Team (Late st Contact Info) Description 02/11/2025 10:30 AM EST Medication Management [facility] MEDICINE [address] [place] [address] Nelia Sullivan, PharmD 230 [place] [address] 03/13/2025 9:30 AM EST Office Visit [facility] OPTOMETRY [address] [place] [address] Claudia Radha, OD 267 [place] [address] documented as of this encounter Goals Goal [...] documented as of this encounter Care Teams Jewelry Designer Relationship Specialty Start Date End Date Radha Jaimson DO 230 [place] [address] PCP - General Family Medicine 01/26/12 Puia, Nelia, PharmD 230 [place] [address] Pharmacist Internal Medicine 08/31/23 Letty Rinaldi 12/16/24 12/18/24 Dalila Carson, JOANN 505 [place] [address] Registered Nurse Family Medicine 12/31/24 Ekta Reynolds 12/31/24 Laurel Monterroso Dinkey DriverMedical Advisor 10/27/22 Saige Aguilar 09/26/23 documented as of this encounter
--- OUTSIDE RECORDS SUMMARY | 2025-01-28 12:21 | XMS_ITS | Encounter Summary ---
Author Organization [employer] Address 75 [facility] 7t [place] [address] Care Team Providers Care Stock Pitcher Name Role Phone Radha Jamison DO Primary Care Provider [phone] Abdias Murillo PharmD Unavailable Unavail able Nelia Sullivan PharmD Unavailable Letty Rinaldi Unavailable Dalila Carson RN Unavailable [phone] Ekta Reynolds Unavailable Reason for Visit * Reason Comments Med Refill Encounter Details Date Type Department Care Team (Late st Contact Info) Description 04/14/2023 Refill [facility] 230 [place], [place] [phone] Radha Jamison DO 230 [place], [place] [phone] Type 2 diabetes mellitus with hyperglycemia, with long-term current use of insulin ([facility]) Social History Tobacco Use Types [...] Description 02/11/2025 10:30 AM EST Medication Management [facility] [address] [place] [address] Nelia Sullivan PharmD 230 [place] [address] 03/13/2025 9:30 AM EST Office Visit [facility] OPTOMET[facility] 267 [place] [address] TarkaRadha, OD 267 [place] [address] documented as of this encounter Goals Goal [...] as of this encounter Care Teams Stock Pitcher Relationship Specialty Start Date End Date Jurcsak, Radha, DO 230 [place], [place] [phone] PCP - General Family Medicine 01/26/12 Abdias Murillo, KeithD 230 [place] [address] Pharmacist Internal Medicine 03/21/22 08/30/23 Nelia Sullivan PharmD 230 [place] [address] Pharmacist Internal Medicine 08/31/23 Letty Rinaldi 12/16/24 12/18/24 Dalila Carson, JOANN [address] [place] [address] Registered Nurse Family Medicine 12/31/24 Ekta Reynolds 12/31/24 Laurel Monterroso Plate DrillerSupervisor Sintering Plant 10/27/22 Sagie Aguilar 09/26/23 documented as of this encounter
--- OUTSIDE RECORDS SUMMARY | 2025-01-28 12:21 | XMS_ITS | Encounter Summary ---
Author Organization [employer] Address 75 [facility] 7t [place] [address] Care Team Providers Care Hospital Admissions Officer Name Role Phone Radha Jamison DO Primary Care Provider Abdias Murillo PharmD Unavailable Unavail able Nelia Sullivan PharmD Unavailable Letty Rinaldi Unavailable Dalila Carson RN Unavailable [phone] Ekta Reynolds Unavailable Reason for Visit * Reason Comments Med Refill Encounter Details Date Type Department Care Team (Late st Contact Info) Description 06/06/2023 Refill [facility] 230 [place], [place] [phone] Radha Jamison DO 230 [place] [address] Chronic bilateral low back pain, unspecified whether [...] Description 02/11/2025 10:30 AM EST Medication Management [facility] MEDICINE [address] [place] [address] Nelia Sullivan PharmD 230 [place] [address] 03/13/2025 9:30 AM EST Office Visit [facility] OPTOMETRY [address] [place] [address] Tarka, Radha, OD 267 [place] [address] documented as of this encounter Goals Goal [...] as of this encounter Care Teams Hospital Admissions Officer Relationship Specialty Start Date End Date Radha Jamison DO 230 [place] [address] PCP - General Family Medicine 01/26/12 Abdais Murillo, PharmD 230 [place] [address] Pharmacist Internal Medicine 03/21/22 08/30/23 Nelia Sullivan, KeithD [address] [place] [address] Pharmacist Internal Medicine 08/31/23 Letty Rinaldi 12/16/24 12/18/24 Dalila Carson, JOANN [address] [place] [address] Registered Nurse Family Medicine 12/31/24 Ekta Reynolds 12/31/24 Laurel Monterroso Fence Post CutterPreventive Medicine Officer 10/27/22 Saige Aguilar 09/26/23 documented as of this encounter
--- OUTSIDE RECORDS SUMMARY | 2025-01-28 12:21 | XMS_ITS | Encounter Summary ---
Author Organization [employer] Address 75 [facility] 7t [place] [address] Care Team Providers Care Engine Wiper Name Role Phone Radha Jamison DO Primary Care Provider Nelia Sullivan PharmD Unavailable Letty Rinaldi Unavailable Dalila Carson RN Unavailable Ekta Reynolds Unavailable Reason for Visit * Reason Comments Med Refill Encounter Details Date Type Department Care Team (Late st Contact Info) Description 12/28/2023 Refill [facility] MEDICINE 230 [place], [place] [phone] Radha Jamison DO 230 [place], [place] [phone] Chronic bilateral low back pain, unspecified whether [...] Description 02/11/2025 10:30 AM EST Medication Management [facility] MEDICINE 230 [place] [address] Nelia Sullivan, PharmD 230 [place] [address] 03/13/2025 9:30 AM EST Office Visit [facility] OPTOMETRY [address] [place] [address] Radha Taylor, OD 267 [place] [address] documented as of this encounter Goals Goal [...] documented as of this encounter Care Teams Engine Wiper Relationship Specialty Start Date End Date Radha Jamison DO 230 [place] [address] PCP - General Family Medicine 01/26/12 Nelia Sullivan PharmD 230 [place] [address] Pharmacist Internal Medicine 08/31/23 Letty Rinaldi 12/16/24 12/18/24 Dalila Carson, JOANN [address] [place] [address] Registered Nurse Family Medicine 12/31/24 Ekta Reynolds 12/31/24 Laurel Monterroso Inspector Conveyor LineTrestleman 10/27/22 Saige Aguilar 09/26/23 documented as of this encounter
--- OUTSIDE RECORDS SUMMARY | 2025-01-28 12:21 | XMS_ITS | Encounter Summary ---
Author Organization [employer] Address 75 [facility] 7t [place] [address] Care Team Providers Care Assembler Latches And Springs Name Role Phone Radha Jamison DO Primary Care Provider Nelia Sullivan PharmD Unavailable [phone] Letty Rinaldi Unavailable Dalila Carson RN Unavailable [phone] Ekta Reynolds Unavailable Reason for Visit * Reason Onset Date Comments Nurse Triage 10/07/2024 Encounter Details Date Type Department Care Team (Late st Contact Info) Description 10/07/2024 Telephone [facility] MEDICINE 230 [place], [place] [phone] Radha Jamison DO 230 [place], [place] [phone] Nurse Triage Social History Tobacco Use Types [...] 10/07/2024 12:10 PM EDT Triage call with [facility] [place] [id number] Pt reports swelling of bilateral lower extremities [...] advised to come to the [facility]IC at [facility] to be seen by provider open [...] caller accepted this outcome. Contact pt at [phone] documented in this encounter Plan of Treatment Upcoming Encounters Date Type Department Care Team (Late st Contact Info) Description 02/11/2025 10:30 AM EST Medication Management [facility] MEDICINE 230 [place] [address] Puia, Nelia, PharmD 230 [place] [address] 03/13/2025 9:30 AM EST Office Visit [facility] OPTOMETRY 267 [place] [address] Radha Taylor, OD 267 [place] [address] documented as of this encounter Goals Goal [...] as of this encounter Care Teams Assembler Latches And Springs Relationship Specialty Start Date End Date Radha Jamison DO 230 [place] [address] PCP - General Family Medicine 01/26/12 Nelia Sullivan PharmD 230 [place] [address] Pharmacist Internal Medicine 08/31/23 Letty Rinaldi 12/16/24 12/18/24 Dalila Carson, JOANN [address] [place] [address] Registered Nurse Family Medicine 12/31/24 Ekta Reynolds 12/31/24 Laurel Monterroso Cargo Service SupervisorAsthma Educator 10/27/22 Saige Aguilar 09/26/23 documented as of this encounter
--- OUTSIDE RECORDS SUMMARY | 2025-01-28 12:22 | XMS_ITS | Encounter Summary ---
Author Organization [employer] Address 75 [facility] 7t [place] [address] Care Team Providers Care Quality Improvement Consultant Name Role Phone Radha Jamison DO Primary Care Provider Abdias Murillo PharmD Unavailable Unavail able Nelia Sullivan PharmD Unavailable [phone] Letty Rinaldi Unavailable Dalila Carson RN Unavailable [phone] Ekta Reynolds Unavailable Reason for Visit * Reason Onset Date Comments Appointment Request 03/09/2023 Encounter Details Date Type Department Care Team (Late st Contact Info) Description 03/09/2023 Telephone [facility] MEDICINE 230 [place], [place] [phone] Radha Jamison DO 230 [place], [place] [phone] Appointment Request Social History Tobacco Use Types [...] denied any concerns. Please contact pt at [phone] documented in this encounter Plan of Treatment Upcoming Encounters Date Type Department Care Team (Late st Contact Info) Description 02/11/2025 10:30 AM EST Medication Management [facility] MEDICINE 230 [place] [address] Nelia Sullivan, PharmD 230 [place] [address] 03/13/2025 9:30 AM EST Office Visit [facility] OPTOMETRY [address] [place], [place] [phone] Radha Taylor OD 267 [place] [address] documented as of this encounter Goals Goal [...] as of this encounter Care Teams Quality Improvement Consultant Relationship Specialty Start Date End Date Radha Jamison DO 230 [place] [address] PCP - General Family Medicine 01/26/12 Abdias Murillo, PharmD 230 [place] [address] Pharmacist Internal Medicine 03/21/22 08/30/23 Nelia Sullivan PharmD 230 [place] [address] Pharmacist Internal Medicine 08/31/23 Letty Rinaldi 12/16/24 12/18/24 Dalila Carson, JOANN [address] [place] [address] Registered Nurse Family Medicine 12/31/24 Ekta Reynolds 12/31/24 Laurel Monterroso Nurse Case ManagementCollision Worker 10/27/22 Saige Aguilar 09/26/23 documented as of this encounter
--- OUTSIDE RECORDS SUMMARY | 2025-01-28 12:22 | XMS_ITS | Encounter Summary ---
Author Organization [employer] Address 75 [facility] 7t [place] [address] Care Team Providers Care Manager Strategic Marketing Name Role Phone Radha Jamison DO Primary Care Provider Adbias Murillo PharmD Unavailable Unavail able Nelia Sullivan PharmD Unavailable [phone] Letty Rinaldi Unavailable Dalila Carson RN Unavailable [phone] Ekta Reynolds Unavailable Reason for Visit * Reason Comments Med Refill Encounter Details Date Type Department Care Team (Late Contact Info) Description 01/31/2022 Refill [facility] 230 [place] [address] Radha Jamison DO 230 [place] [address] Chronic bilateral low back pain, unspecified whether [...] Description 02/11/2025 10:30 AM EST Medication Management [facility] MEDICINE 230 [place] [address] Nelia Sullivan PharmAdrian [address] [place] [address] 03/13/2025 9:30 AM EST Office Visit [facility] OPTOMETRY [address] [place] [address] Anamerritt Radha, OD 267 [place] [address] documented as of this encounter Visit Diagnoses Diagnosis Chronic bilateral low back pain, unspecified whether sciatica present documented in this encounter Care Teams Manager Strategic Marketing Relationship Specialty Start Date End Date Radha Jamison DO 230 [place] [address] PCP - General Family Medicine 01/26/12 Abdias Murillo, PharmD [address] [place] [address] Pharmacist Internal Medicine 03/21/22 08/30/23 Nelia Sullivan, PharmD 230 [place] [address] Pharmacist Internal Medicine 08/31/23 Letty Rinaldi 12/16/24 12/18/24 Dalila Carson, JOANN [address] [place] [address] Registered Nurse Family Medicine 12/31/24 Ekta Reynolds 12/31/24 Laurel Monterroso Card DofferHearing Impaired Teacher 10/27/22 Saige Aguilar 09/26/23 documented as of this encounter
--- OUTSIDE RECORDS SUMMARY | 2025-01-28 12:22 | XMS_ITS | Encounter Summary ---
Author Organization [employer] Address 75 [facility] 7t [place] [address] Care Team Providers Care String Laster Name Role Phone Radha Jamison DO Primary Care Provider [phone] Nelia Sullivan PharmD Unavailable Letty Rinaldi Unavailable Dalila Carson RN Unavailable [phone] Ekta Reynolds Unavailable Encounter Details Date Type Department Care Team (Late st Contact Info) Description 01/30/2024 Telephone [facility] [address] [place] [address] Radha Jamison DO 230 [place], [place] [phone] Social History Tobacco Use Types Packs/Day Years [...] Description 02/11/2025 10:30 AM EST Medication Management [facility] MEDICINE 230 [place] [address] Nelia Sullivan, PharmD 230 [place] [address] 03/13/2025 9:30 AM EST Office Visit [facility] OPTOMETRY 267 [place] [address] Radha Taylor, OD 267 [place] [address] documented as of this encounter Goals Goal Patient Goal Type Associated Problems Recent Progress Patient-Stated? Author Record your blood pressure once per day Blood Pressure No Nelia Sullivan, PharmD Blood Pressure < 140/90 Blood Pressure 120/58(2024 10:33 AM EST) No Puia Nelia, PharmD Smoking cessation General No PuiaFeliceNelia, PharmD Patient will adhere to medication regimen General No Puia Nelia, PharmD Hemoglobin A1c < 7 Result Component 10.1(12/07/19 25 12:48 PM EDT) No DellogAbdias cotto, PharmD [...] documented as of this encounter Care Teams String Laster Relationship Specialty Start Date End Date Radha Jamison DO 230 [place] [address] PCP - General Family Medicine 01/26/12 Nelia Sullivan, PharmD 230 [place] [address] Pharmacist Internal Medicine 08/31/23 Letty Rinaldi 12/16/24 12/18/24 Dalila Carson, JOANN 505 [place] [address] Registered Nurse Family Medicine 12/31/24 Ekta Reynolds 12/31/24 Laurel oMnterroso Cnc Field Service EngineerCloth Calender 10/27/22 Saige Aguilar 09/26/23 documented as of this encounter
--- OUTSIDE RECORDS SUMMARY | 2025-01-28 12:22 | XMS_ITS | Encounter Summary ---
Author Organization [employer] Address 75 [facility] 7t [place] [address] Care Team Providers Care Quality Control Microbiology Supervisor Name Role Phone Radha Jamison DO Primary Care Provider Abdias Murillo PharmD Unavailable Unavail able Nelia Sullivan PharmD Unavailable [phone] Letty Rinaldi Unavailable Dalila Carson RN Unavailable [phone] Ekta Reynolds Unavailable Reason for Visit * Reason Onset Date Comments Med Refill 10/24/2022 Encounter Details Date Type Department Care Team (Late st Contact Info) Description 10/24/2022 Telephone [facility] MEDICINE 230 [place], [place] [phone] Rahda Jamison DO 230 [place], [place] [phone] Med Refill Social History Tobacco Use Types [...] Description 02/11/2025 10:30 AM EST Medication Management [facility] MEDICINE 230 [place] [address] Nelia Sullivan PharmD 230 [place] [address] 03/13/2025 9:30 AM EST Office Visit [facility] OPTOMETRY [address] [place] [address] Radha Taylor, OD [address] [place] [address] documented as of this encounter Goals Goal [...] of this encounter Care Teams Quality Control Microbiology Supervisor Relationship Specialty Start Date End Date Radha Jamison DO [address] [place] [address] PCP - General Family Medicine 01/26/12 Abdias Murillo, PharmD [address] [place] [address] Pharmacist Internal Medicine 03/21/22 08/30/23 Nelia Sullivan, KeithD [address] [place] [address] Pharmacist Internal Medicine 08/31/23 Letty Rinaldi 12/16/24 12/18/24 Dalila Carson, RN [address] [place] [address] Registered Nurse Family Medicine 12/31/24 Ekta Reynolds 12/31/24 Laurel Monterroso Dairy Feed Mixing OperatorProject Archivist 10/27/22 Saige Aguilar 09/26/23 documented as of this encounter
--- OUTSIDE RECORDS SUMMARY | 2025-01-28 12:22 | XMS_ITS | Encounter Summary ---
Author Organization [employer] Address 75 [facility] 7t [place] [address] Care Team Providers Care Administrator Social Welfare Name Role Phone Radha Jamison DO Primary Care Provider Abdias Murillo PharmD Unavailable Unavail able Nelia Sullivan PharmD Unavailable Letty Rinaldi Unavailable Dalila Carson RN Unavailable [phone] Ekta Reynolds Unavailable Reason for Visit * Reason Onset Date Comments Durable Medical Equipment 09/08/2022 Encounter Details Date Type Department Care Team (Late st Contact Info) Description 09/08/[address] [facility] MEDICINE 230 [place], [place] [phone] Radha Jamison DO 230 [place], [place] [phone] Durable Medical Equipment Social History Tobacco Use [...] is not working. Please contact pt at [phone] documented in this encounter Plan of Treatment Upcoming Encounters Date Type Department Care Team (Late st Contact Info) Description 02/11/2025 10:30 AM EST Medication Management [facility] MEDICINE [address] [place] [address] Nelia Sullivan PharmD 230 [place] [address] 03/13/2025 9:30 AM EST Office Visit [facility] OPTOMETRY [address] [place] [address] TarRadha bang, OD [address] [place] [address] documented as of this encounter Goals Goal [...] documented as of this encounter Care Teams Administrator Social Welfare Relationship Specialty Start Date End Date Radha Jamison DO [address] [place] [address] PCP - General Family Medicine 01/26/12 Abdias Murillo, PharmD [address] [place] [address] Pharmacist Internal Medicine 03/21/22 08/30/23 Nelia Sullivan, Camron [address] [place] [address] Pharmacist Internal Medicine 08/31/23 Letty Rinaldi 12/16/24 12/18/24 Dalila Carson, JOANN [address] [place] [address] Registered Nurse Family Medicine 12/31/24 Ekta Reynolds 12/31/24 Laurel Monterroso Song WriterBingo Caller 10/27/22 Saige Aguilar 09/26/23 documented as of this encounter
--- OUTSIDE RECORDS SUMMARY | 2025-01-28 12:22 | XMS_ITS | Encounter Summary ---
Author Organization [employer] Address 75 [facility] 7t [place] [address] Care Team Providers Care Still Cleaner Tube Name Role Phone Radha Jamison DO Primary Care Provider Abdias Murillo PharmD Unavailable Unavail able Nelia Sullivan PharmD Unavailable [phone] Letty Rinaldi Unavailable Dalila Carson RN Unavailable [phone] Ekta Reynlods Unavailable Reason for Visit * Reason Comments Med Refill Encounter Details Date Type Department Care Team (Late st Contact Info) Description 11/08/2022 Refill [facility] MEDICINE 230 [place], [place] [phone] Radha Jamison DO 230 [place], [place] [phone] Social History Tobacco Use Types Packs/Day Years [...] Description 02/11/2025 10:30 AM EST Medication Management [facility] 230 [place] [address] Nelia Sullivan PharmD 230 [place] [address] 03/13/2025 9:30 AM EST Office Visit [facility] OPTOMETRY [address] [place] [address] Radha Taylor, OD 267 [place] [address] documented as of this encounter Goals Goal [...] documented as of this encounter Care Teams Still Cleaner Tube Relationship Specialty Start Date End Date Radha Jamison DO [address] [place] [address] PCP - General Family Medicine 01/26/12 Abdias Murillo, Camron [address] [place] [address] Pharmacist Internal Medicine 03/21/22 08/30/23 Nelia Sullivan PharmD [address] [place] [address], [place] [address] Pharmacist Internal Medicine 08/31/23 Letty Rinaldi 12/16/24 12/18/24 Dalila Carson, RN 505 [place] [address] Registered Nurse Family Medicine 12/31/24 Ekta Reynolds 12/31/24 Laurel Monterroso Post Hole Digging Machine OperatorStamp Redemption Clerk 10/27/22 Saige Aguilar 09/26/23 documented as of this encounter
--- OUTSIDE RECORDS SUMMARY | 2025-01-28 12:22 | XMS_ITS | Encounter Summary ---
Author Organization [employer] Address 75 [facility] 7t [place] [address] Care Team Providers Care Glacing Machine Tender Name Role Phone Radha Jamison DO Primary Care Provider Nelia Sullivan PharmD Unavailable Letty Rinaldi Unavailable Dalila Carson RN Unavailable [phone] Ekta Reynolds Unavailable Reason for Visit * Reason Comments Med Refill Encounter Details Date Type Department Care Team (Late st Contact Info) Description 11/21/2023 Refill [facility] MEDICINE 230 [place], [place] [phone] Radha Jamison DO 230 [place], [place] [phone] Chronic bilateral low back pain, unspecified whether [...] 10:30 AM EST Medication Management [facility] 230 [place] [address] Nelia Sullivan, PharmD 230 [place] [address] 03/13/2025 9:30 AM EST Office Visit [facility] OPTOMETRY [address] [place] [address] Radha Taylor, OD 267 [place] [address] documented as of this encounter Goals Goal Patient Goal Type Associated Problems Recent Progress Patient-Stated? Author Record your blood pressure once per day Blood Pressure No Nelia Sullivan, PharmD Blood Pressure < 140/90 Blood Pressure 120/58(2024 10:33 AM EST) No Nelia Sullivan, PharmD Smoking cessation General No Puia, Nelia, PharmD Patient will adhere to medication regimen General No Felice Sullivanyssa, PharmD Hemoglobin A1c < 7 Result Component [...] documented as of this encounter Care Teams Glacing Machine Tender Relationship Specialty Start Date End Date Radha Jamison DO 230 [place] [address] PCP - General Family Medicine 01/26/12 Nelia Sullivan, PharmD 230 [place] [address] Pharmacist Internal Medicine 08/31/23 Letty Rinaldi 12/16/24 12/18/24 Dalila Carson, JOANN [address] [place] [address] Registered Nurse Family Medicine 12/31/24 Ekta Reynolds 12/31/24 Laurel Monterroso [employer] BankerFixed Route Operator 10/27/22 Saige Aguilar 09/26/23 documented as of this encounter
--- OUTSIDE RECORDS SUMMARY | 2025-01-28 12:22 | XMS_ITS | Encounter Summary ---
Author Organization [employer] Address 75 [facility] 7t [place] [address] Care Team Providers Care Claim Manager Name Role Phone Radha Jamison DO Primary Care Provider Abdias Murillo PharmD Unavailable Unavail able Nelia Sullivan PharmD Unavailable Letty Rinaldi Unavailable Dalila Carson RN Unavailable [phone] Ekta Reynolds Unavailable Reason for Visit * Reason Comments Med Refill Encounter Details Date Type Department Care Team (Late st Contact Info) Description 10/25/2022 Refill [facility] MEDICINE 230 [place], [place] [phone] Radha Jamison DO 230 [place] [address] Chronic bilateral low back pain, unspecified whether [...] Department Care Team (Late Contact Info) Description 02/11/2025 10:30 AM EST Medication Management [facility] MEDICINE 230 [place] [address] Nelia Sullivan PharmD 230 [place] [address] 03/13/2025 9:30 AM EST Office Visit [facility] OPTOMETRY 267 [place] [address] Radha Taylor, OD 267 [place] [address] documented as of this encounter Goals Goal [...] documented as of this encounter Care Teams Claim Manager Relationship Specialty Start Date End Date Radha Jamison DO 230 [place] [address] PCP - General Family Medicine 01/26/12 Abdias Murillo PharmD [address] [place] [address] Pharmacist Internal Medicine 03/21/22 08/30/23 Nelia Sullivan PharmD 230 [place] [address] Pharmacist Internal Medicine 08/31/23 Letty Rinaldi 12/16/24 12/18/24 Dalila Carson, JOANN [address] [place] [address] Registered Nurse Family Medicine 12/31/24 Ekta Reynolds 12/31/24 Laurel Monterroso Electrical Systems EngineerGlass Glazier 10/27/22 Saige Aguilar 09/26/23 documented as of this encounter
--- OUTSIDE RECORDS SUMMARY | 2025-01-28 12:22 | XMS_ITS | Encounter Summary ---
Author Organization [employer] Address 75 [facility] 7t [place] [address] Care Team Providers Care Drama Therapist Name Role Phone Radha Jamison DO Primary Care Provider Abdias Murillo PharmD Unavailable Unavail able Nelia Sullivan PharmD Unavailable [phone] Letty Rinaldi Unavailable Dalila Carson RN Unavailable [phone] Ekta Reynolds Unavailable Reason for Visit * Reason Comments Med Refill Encounter Details Date Type Department Care Team (Late st Contact Info) Description 12/21/2022 Refill [facility] MEDICINE 230 [place], [place] [phone] Radha Jamison DO 230 [place], [place] [phone] Chronic bilateral low back pain, unspecified whether [...] Description 02/11/2025 10:30 AM EST Medication Management [facility] MEDICINE 230 [place] [address] Nelia Sullivan PharmD 230 [place] [address] 03/13/2025 9:30 AM EST Office Visit [facility] OPTOMETRY 267 [place] [address] Tarka, Radha, OD 267 [place] [address] documented as of this encounter Goals Goal [...] documented as of this encounter Care Teams Drama Therapist Relationship Specialty Start Date End Date Radha Jamison DO 230 [place] [address] PCP - General Family Medicine 01/26/12 Abdias Murillo, PharmD 230 [place] [address] Pharmacist Internal Medicine 03/21/22 08/30/23 Nelia Sullivan PharmD [address] [place] [address] Pharmacist Internal Medicine 08/31/23 Letty Rinaldi 12/16/24 12/18/24 Dalila Carson RN [address] [place] [address] Registered Nurse Family Medicine 12/31/24 Ekta Reynolds 12/31/24 Laurel Monterroso Vacuum Pan OperatorRemote Inpatient Coder 10/27/22 Saige Aguilar 09/26/23 documented as of this encounter
--- OUTSIDE RECORDS SUMMARY | 2025-01-28 12:22 | XMS_ITS | Encounter Summary ---
Author Organization [employer] Address 75 [facility] 7t [place] [address] Care Team Providers Care Identification Clerk Name Role Phone Radha Jamison DO Primary Care Provider [phone] Abdias Murillo PharmD Unavailable Unavail able Nelia Sullivan PharmD Unavailable [phone] Letty Rinaldi Unavailable Dalila Carson RN Unavailable [phone] Ekta Reynolds Unavailable Reason for Visit * Reason Comments Med Refill Encounter Details Date Type Department Care Team (Late st Contact Info) Description 08/01/2023 Refill [facility] MED[facility]INE 230 [place], [place] [phone] Radha Jamison DO 230 [place], [place] [phone] Chronic bilateral low back pain, unspecified whether [...] Description 02/11/2025 10:30 AM EST Medication Management [facility] MEDICINE 230 [place] [address] Nelia Sullivan PharmD 230 [place] [address] 03/13/2025 9:30 AM EST Office Visit [facility] OPTOMETRY 267 [place] [address] Radha Taylor, OD 267 [place] [address] documented as of this encounter Goals Goal [...] as of this encounter Care Teams Identification Clerk Relationship Specialty Start Date End Date Radha Jamison DO 230 [place] [address] PCP - General Family Medicine 01/26/12 Abdias Murillo, PharmD 230 [place] [address] Pharmacist Internal Medicine 03/21/22 08/30/23 Nelia Sullivan PharmD 230 [place] [address] Pharmacist Internal Medicine 08/31/23 Letty Rinaldi 12/16/24 12/18/24 Dalila Carson, JOANN [address] [place] [address] Registered Nurse Family Medicine 12/31/24 Ekta Reynolds 12/31/24 Laurel Monterroso Perforating Machine OperatorBrake Reliner 10/27/22 Saige Aguilar 09/26/23 documented as of this encounter
--- OUTSIDE RECORDS SUMMARY | 2025-01-28 12:22 | XMS_ITS | Encounter Summary ---
Author Organization [employer] Address 75 [facility] 7t [place] [address] Care Team Providers Care Shoe Caser Name Role Phone Radha Jamison DO Primary Care Provider Nelia Sullivan PharmD Unavailable [phone] Letty Rinaldi Unavailable Dalila Carson RN Unavailable [phone] Ekta Reynolds Unavailable Reason for Visit * Reason Comments Med Refill Encounter Details Date Type Department Care Team (Late st Contact Info) Description 10/30/2023 Refill [facility] MEDICINE 230 [place], [place] [phone] Radha Jamison DO 230 [place], [place] [phone] Chronic bilateral low back pain, unspecified whether [...] Description 02/11/2025 10:30 AM EST Medication Management [facility] MEDICINE 230 [place] [address] Nelia Sullivan, PharmD 230 [place] [address] 03/13/2025 9:30 AM EST Office Visit [facility] OPTOMETRY 267 [place] [address] Radha Taylor, OD 267 [place] [address] documented as of this encounter Goals Goal [...] documented as of this encounter Care Teams Shoe Caser Relationship Specialty Start Date End Date Radha Jamison DO 230 [place] [address] PCP - General Family Medicine 01/26/12 Nelia Sullivan, PharmD 230 [place] [address] Pharmacist Internal Medicine 08/31/23 Letty Rinaldi 12/16/24 12/18/24 Dalila Carson, JOANN 505 [place] [address] Registered Nurse Family Medicine 12/31/24 Ekta Reynolds 12/31/24 Laurel Monterroso GeomorphologistRib Bender 10/27/22 Saige Aguilar 09/26/23 documented as of this encounter
--- OUTSIDE RECORDS SUMMARY | 2025-01-28 12:22 | XMS_ITS | Encounter Summary ---
Author Organization [employer] Address 75 [facility] 7t [place] [address] Care Team Providers Care Cop Winder Name Role Phone Lisa Jamisonfer Primary Care Provider Abdias Murillo PharmD Unavailable Unavail able Nelia Sullivan PharmD Unavailable Letty Rinaldi Unavailable Dalila Carson RN Unavailable [phone] Ekta Reynolds Unavailable Reason for Visit * Reason Onset Date Comments Dental Exam 08/24/2023 Encounter Details Date Type Department Care Team (Late st Contact Info) Description 08/24/2023 Telephone [facility] ADULT DENTAL 230 [place] [address] Libby Siddiqui DDS 230 [place], [place] [phone] Dental Exam Social History Tobacco Use Types [...] 10:30 AM EST Medication Management [facility] MEDICINE 230 [place], [place] [phone] Nelia Sullivan, PharmD 230 [place] [address] 03/13/2025 9:30 AM EST Office Visit [facility] OPTOMETRY 267 [place], [place] [phone] Radha Taylor, OD 267 [place] [address] documented as of this encounter Goals Goal [...] documented as of this encounter Care Teams Cop Winder Relationship Specialty Start Date End Date Radha Jamison DO 230 [place] [address] PCP - General Family Medicine 01/26/12 Abdias Murillo, PharmD 230 [place] [address] Pharmacist Internal Medicine 03/21/22 08/30/23 Nelia Sullivan, KeithD 230 [place] [address] Pharmacist Internal Medicine 08/31/23 Letty Rinaldi 12/16/24 12/18/24 Dalila Carson, RN 505 [place] [address] Registered Nurse Family Medicine 12/31/24 Ekta Reynolds 12/31/24 Laurel Monterroso Other Sports Coach Or InstructorContract Administrative Assistant 10/27/22 Saige Aguilar 09/26/23 documented as of this encounter
--- OUTSIDE RECORDS SUMMARY | 2025-01-28 12:22 | XMS_ITS | Encounter Summary ---
Author Organization [employer] Address 75 [facility] 7t h Floor [address] Care Team Providers Care Retention Representative Name Role Phone Radha Jamison DO Primary Care Provider Abdias Murillo PharmD Unavailable Unavail able Nelia Sullivan PharmD Unavailable [phone] Letty Rinaldi Unavailable Dalila Carson RN Unavailable [phone] Ekta Reynolds Unavailable Reason for Visit * Reason Onset Date Comments Med Refill 10/18/2022 Encounter Details Date Type Department Care Team (Late st Contact Info) Description 10/18/2022 Telephone [facility] MEDICINE 230 [place], [place] [phone] Radha Jamison DO 230 [place], [place] [phone] Med Refill Social History Tobacco Use Types [...] PCP needed re:controlled medication. Pt's hx with [facility] appts is as follows: 05/05: Pt short [...] team nurses. Any questions, contact pt at [phone] (Bengali) * Telephone Encounter - Acacia Chakraborty RN [...] Description 02/11/2025 10:30 AM EST Medication Management [facility] MEDICINE 230 [place] [address] eNlia Sullivan PharmD 230 [place] [address] 03/13/2025 9:30 AM EST Office Visit [facility] OPTOMETRY 267 [place], [place] [phone] Radha Taylor, OD 267 [place] [address] documented as of this encounter Goals Goal [...] documented as of this encounter Care Teams Retention Representative Relationship Specialty Start Date End Date Radha Jamison DO [address] [place] [address] PCP - General Family Medicine 01/26/12 Abdias Murillo PharmD [address] [place] [address] Pharmacist Internal Medicine 03/21/22 08/30/23 Nelia Sullivan PharmD [address] [place] [address] Pharmacist Internal Medicine 08/31/23 Letty Rinaldi 12/16/24 12/18/24 Dalila Carson, RN [address] [place] [address] Registered Nurse Family Medicine 12/31/24 Ekta Reynolds 12/31/24 Laurel Monterroso Construction Management InstructorGeology Faculty Member 10/27/22 Saige Aguilar 09/26/23 documented as of this encounter
--- OUTSIDE RECORDS SUMMARY | 2025-01-28 12:22 | XMS_ITS | Encounter Summary ---
Author Organization [employer] Address 75 [facility] 7t [place] [address] Care Team Providers Care Billboard Poster Helper Name Role Phone Radha Jamison DO Primary Care Provider [phone] Abdias Murillo PharmD Unavailable Unavail able Nelia Sullivan PharmD Unavailable Letty Rinaldi Unavailable Dalila Carson RN Unavailable [phone] Ekta Reynolds Unavailable Reason for Visit * Reason Comments Med Refill Encounter Details Date Type Department Care Team (Late st Contact Info) Description 08/30/2023 Refill [facility] MEDICINE 230 [place], [place] [phone] Radha Jamison DO 230 [place], [place] [phone] Chronic bilateral low back pain, unspecified whether [...] the past 12 months, has t he [employer] gas, oil or water company threatened to [...] Description 02/11/2025 10:30 AM EST Medication Management [facility] MEDICINE 230 [place] [address] Nelia Sullivan PharmD 230 [place] [address] 03/13/2025 9:30 AM EST Office Visit [facility] OPTOMETRY [address] [place] [address] TarkaRadha, OD 267 [place] [address] documented as of this encounter Goals Goal Patient Goal Type Associated Problems Recent Progress Patient-Stated? Author Record your blood pressure once per day Blood Pressure No Nelia Sullivan, PharmD Blood Pressure < 140/90 Blood Pressure 120/58(2024 10:33 AM EST) No AnaiiaYazminsa, PharmD Smoking cessation General [...] documented as of this encounter Care Teams Billboard Poster Helper Relationship Specialty Start Date End Date Radha Jamison DO 230 [place] [address] PCP - General Family Medicine 01/26/12 Abdias Murillo PharmD 230 [place] [address] Pharmacist Internal Medicine 03/21/22 08/30/23 Nelia Sullivan PharmD 230 [place] [address] Pharmacist Internal Medicine 08/31/23 Letty Rinaldi 12/16/24 12/18/24 Dalila Carson, JOANN [address] [place] [address] Registered Nurse Family Medicine 12/31/24 Ekta Reynolds 12/31/24 Laurel Monterroso Tanning Salon AttendantDie Designer Apprentice 10/27/22 Saige Aguilar 09/26/23 documented as of this encounter
--- OUTSIDE RECORDS SUMMARY | 2025-01-28 12:22 | XMS_ITS | Encounter Summary ---
Author Organization [employer] Address 75 [facility] 7t [place] [address] Care Team Providers Care Automotive General Sales Manager Name Role Phone Radha Jamison DO Primary Care Provider Abdias Murillo PharmD Unavailable Unavail able Nelia Sullivan PharmD Unavailable Letty Rinaldi Unavailable Dalila Carson RN Unavailable [phone] Ekta Reynolds Unavailable Reason for Visit * Reason Comments Med Refill Encounter Details Date Type Department Care Team (Late Contact Info) Description 11/10/[address] [facility] MEDICINE 230 [place], [place] [phone] Radha Jamison DO 230 [place] [address] Chronic gastroesophageal reflux disease Social History Tobacco [...] Description 02/11/2025 10:30 AM EST Medication Management [facility] MEDICINE [address] [place] [address] Nelia Sullivan PharmD [address] [place] [address] 03/13/2025 9:30 AM EST Office Visit [facility] OPTOMETRY 267 [place] [address] Radha Taylor, OD 267 [place] [address] documented as of this encounter Goals Goal [...] as of this encounter Care Teams Automotive General Sales Manager Relationship Specialty Start Date End Date Radha Jamison DO 230 [place] [address] PCP - General Family Medicine 01/26/12 Abdias Murillo, PharmD [address] [place] [address] Pharmacist Internal Medicine 03/21/22 08/30/23 Nelia Sullivan PharmD 230 [place] [address] Pharmacist Internal Medicine 08/31/23 Letty Rinaldi 12/16/24 12/18/24 Dalila Carson, JOANN [address] [place] [address] Registered Nurse Family Medicine 12/31/24 Ekta Reynolds 12/31/24 Laurel Monterroso Bundle ClerkBiopharmaceutical Rep 10/27/22 Saige Aguilar 09/26/23 documented as of this encounter
--- OUTSIDE RECORDS SUMMARY | 2025-01-28 12:22 | XMS_ITS | Encounter Summary ---
Author Organization [employer] Address 75 [facility] 7t [place] [address] Care Team Providers Care Rivet Heater Gas Name Role Phone Radha Jamison DO Primary Care Provider Abdias Murillo PharmD Unavailable Unavail able Nelia Sullivan PharmD Unavailable Letty Rinaldi Unavailable Dalila Carson RN Unavailable [phone] Ekta Reynolds Unavailable Encounter Details Date Type Department Care Team (Late st Contact Info) Description 10/10/2022 Telephone [facility] MEDICINE 230 [place], [place] [phone] Radha Jamison DO 230 [place], [place] [phone] Social History Tobacco Use Types Packs/Day Years [...] Description 02/11/2025 10:30 AM EST Medication Management [facility] MEDICINE 230 [place] [address] Nelia Sullivan PharmD 230 [place] [address] 03/13/2025 9:30 AM EST Office Visit [facility] OPTOMETRY [address] [place] [address] Radha Taylor, OD 267 [place] [address] documented as of this encounter Goals Goal [...] documented as of this encounter Care Teams Rivet Heater Gas Relationship Specialty Start Date End Date Radha Jamison DO [address] [place] [address] PCP - General Family Medicine 01/26/12 Abdias Murillo PharmD [address] [place] [address] Pharmacist Internal Medicine 03/21/22 08/30/23 Nelia Sullivan PharmD [address] [place] [address] Pharmacist Internal Medicine 08/31/23 Letty Rinaldi 12/16/24 12/18/24 Dalila Carson, JOANN [address] [place] [address] Registered Nurse Family Medicine 12/31/24 Ekta Reynolds 12/31/24 Laurel Monterroso Restaurant Assistant ManagerCommuter Pilot 10/27/22 Saige Aguilar 09/26/23 documented as of this encounter
--- OUTSIDE RECORDS SUMMARY | 2025-01-28 12:22 | XMS_ITS | Encounter Summary ---
Author Organization [employer] Address 75 [facility] 7t [place] [address] Care Team Providers Care Weather Stripper Name Role Phone Radha Jamison DO Primary Care Provider Abdias Murillo PharmD Unavailable Unavail able Nelia Sullivan PharmD Unavailable [phone] Letty Rinaldi Unavailable Dalila Carson RN Unavailable [phone] Ekta Reynolds Unavailable Reason for Visit * Reason Comments Med Refill Encounter Details Date Type Department Care Team (Late st Contact Info) Description 12/20/2022 Refill [facility] MEDICINE 230 [place], [place] [phone] Radha Jamison DO 230 [place], [place] [phone] Chronic bilateral low back pain, unspecified whether [...] Description 02/11/2025 10:30 AM EST Medication Management [facility] MEDICINE 230 [place] [address] Nelia Sullivan PharmD 230 [place] [address] 03/13/2025 9:30 AM EST Office Visit [facility] OPTOMETRY [address] [place] [address] Tarka, Radha, OD 267 [place] [address] documented as of this encounter Goals Goal [...] documented as of this encounter Care Teams Weather Stripper Relationship Specialty Start Date End Date Radha Jamison DO 230 [place] [address] PCP - General Family Medicine 01/26/12 Abdias Murillo, PharmD 230 [place] [address] Pharmacist Internal Medicine 03/21/22 08/30/23 Nelia Sullivan PharmD 230 [place] [address] Pharmacist Internal Medicine 08/31/23 Letty Rinaldi 12/16/24 12/18/24 Dalila Carson RN [address] [place] [address] Registered Nurse Family Medicine 12/31/24 Ekta Reynolds 12/31/24 Laurel Monterroso Chute WorkerMental Tester 10/27/22 Saige Aguilar 09/26/23 documented as of this encounter
--- OUTSIDE RECORDS SUMMARY | 2025-01-28 12:22 | XMS_ITS | Encounter Summary ---
Author Organization [employer] Address [address] [facility] [address] [place] [address] Care Team Providers Care Director Human Services Name Role Phone Radha Jamison DO Primary Care Provider Abdias Murillo PharmD Unavailable Unavail able Nelia Sullivan PharmD Unavailable [phone] Letty Rinaldi Unavailable Dalila Carson RN Unavailable Ekta Reynolds Unavailable Reason for Visit * Reason Comments Med Refill Encounter Details Date Type Department Care Team (Late st Contact Info) Description 01/24/2022 Telephone [facility] [address] [place] [address] Radha Jamison DO [address] [place] [address] Med Refill Social History Tobacco Use Types [...] Description 02/11/2025 10:30 AM EST Medication Management [facility] MEDICINE [address] [place] [address] Nelia Sullivan PharmD [address] [place] [address] 03/13/2025 9:30 AM EST Office Visit [facility] [address] [place] [address] TarRadha bang, OD [address] [place] [address] documented as of this encounter Visit Diagnoses Diagnosis Chronic bilateral low back pain, unspecified whether sciatica present documented in this encounter Care Teams Director Human Services Relationship Specialty Start Date End Date Radha Jamison DO [address] [place] [id number] PCP - General Family Medicine 01/26/12 Abdias Murillo PharmD [address] [place] [phone] Pharmacist Internal Medicine 03/21/22 08/30/23 Nelia Sullivan PharmD [address] [place] [phone] Pharmacist Internal Medicine 08/31/23 Letty Rinaldi 12/16/24 12/18/24 Dalila Carson, JOANN [address] [place] [address] [place] [address] Registered Nurse Family Medicine 12/31/24 Ekta Reynolds 12/31/24 Laurel Monterroso Manager Of Applications DevelopmentLocker Attendant 10/27/22 Saige Aguilar 09/26/23 documented as of this encounter
--- OUTSIDE RECORDS SUMMARY | 2025-01-28 12:22 | XMS_ITS | Encounter Summary ---
Author Organization [employer] Address [address] [facility] [address] [place] [address] Care Team Providers Care Assistant Professor Of Spanish Name Role Phone Radha Jamison DO Primary Care Provider Abdias Murillo PharmD Unavailable Unavail able Nelia Sullivan PharmD Unavailable Letty Rinaldi Unavailable Dalila Carson RN Unavailable [phone] Ekta Reynolds Unavailable Reason for Visit * Reason Comments Med Refill Encounter Details Date Type Department Care Team (Late st Contact Info) Description 12/22/2022 Refill [facility] [address] [place], [place] [id number] Radha Jamison DO [address] [place], [place] [id number] Chronic bilateral low back pain, unspecified whether [...] Medication Management [facility] [address] [place] [address] Nelia Sullivan PharmD [address] [place] [address] 03/13/2025 9:30 AM EST Office Visit [facility] [address] [place] [address] Tarka, Radha, OD [address] [place] [address] documented as of this encounter Goals Goal [...] this encounter Care Teams Assistant Professor Of Spanish Relationship Specialty Start Date End Date Radha Jamison DO [address] [place] [address] PCP - General Family Medicine 01/26/12 Abdias Murillo, PharmD [address] [place] [address] Pharmacist Internal Medicine 03/21/22 08/30/23 Nelia Sullivan PharmD [address] [place] [address] Pharmacist Internal Medicine 08/31/23 Letty Rinaldi 12/16/24 12/18/24 Dalila Carson RN [address] [place] [id number] Registered Nurse Family Medicine 12/31/24 Ekta Reynolds 12/31/24 Laurel Monterroso Necktie Centralizing Machine OperatorLegal Executive 10/27/22 Saige Aguilar 09/26/23 documented as of this encounter
--- OUTSIDE RECORDS SUMMARY | 2025-01-28 12:22 | XMS_ITS | Encounter Summary ---
Author Organization [employer] Address [address] [facility] [address] [place] [address] Care Team Providers Care Loader [employer] Name Role Phone Radha Jamison DO Primary Care Provider [phone] Abdias Murillo PharmD Unavailable Unavail able Nelia Sullivan PharmD Unavailable Letty Rinaldi Unavailable Dalila Carson RN Unavailable [phone] Ekta Reynolds Unavailable Encounter Details Date Type Department Care Team (Late Contact Info) Description 02/03/2022 Orders Only [facility]INE [address] [place] [phone] Radha Jamison DO [address] [place] [address] [phone] Social History Tobacco Use Types Packs/Day Years [...] [facility] [address] [place] [phone] PuiaNelia, PharmD [address] [place] [address] 03/13/2025 9:30 AM EST Office Visit [facility] OPTOMETRY [address] [facility] [place] [address] Radha Taylor, OD [address] [place] [address] documented as of this encounter Procedures Procedure [...] Sedimentation Rate 23(H) 0 - 20 MM/HR [facility] Comment:Patients with polycy themia and many hemoglobin abnormalitiesmay have depressed sed rates whereas patients with anemiamay have elevated sed rates. 04/24/2022 4:19 PM EDT 04/24/2022 4:27 PM EDT [facility] External Provider LAB BLO OD ORDERABLES Final Result Performing Organization Address [facility] Co de Phone Number [facility] [address] [place] [phone] * C-reactive Protein (04/24/2022 4:19 PM EDT) Pathologist [facility] C Reactive Protein 0.28 < or = 0.50 mg/dL [facility] 04/24/2022 4:19 PM EDT 04/24/2022 4:22 PM EDT [facility] External Provider LAB BLO OD ORDERABLES Final Result Performing Organization Address [facility] Phone Number [facility] [address] [place] [phone] * Magnesium (04/24/2022 4:19 PM EDT) Pathologist [facility] Magnesium 1.7 1.6 - 2.6 mg/dL [facility] 04/24/2022 4:19 PM EDT 04/24/2022 4:22 PM EDT [facility] External Provider LAB BLO OD ORDERABLES Final Result Performing Organization Address [facility] de Phone Number [facility] [address] [place] [phone] * (ABNORMAL) Basic Metabolic Panel (04/24/2022 4:19 PM EDT) Pathologist [facility] Sodium 135 135 - 145 mmol/L [facility] Potassium 4.7 3.3 - 5.1 mmol/L [facility] Chloride 100 96 - 108 mmol/L [facility] Carbon Dioxide 27 22 - 29 mmol/L [facility] Anion Gap 13 12 - 20 [facility] Urea Nitrogen (BUN) 20(H) 9 - 16 mg/dL [facility] Creatinine, Serum 1.01 0.5 - 1.4 mg/dL [facility] Creatinine Clr Calc Pharmacy 48.8 [facility] Comment:Provided height and weight: 152.4 cm,62.4 kg.eGFR (calculated from the MDRD study equation) and eCrCl(calculated from the Cockcroft-Gault equation) are based ondifferent parameters and may not yield comparable results.If eCrCl result is absurd, please check patient'sheight/weight. Estimated Glomerular Filt Rate 56 [facility] Comment:NOTE: For -Am erican individuals, multiply the result by 1.210.Chronic Kidney Disease: Estimated GFR < 60 mL/min/[id number] Kidney Disease: Estimated GFR < 15 mL/min/1.73m2 Glucose 269(H) 60 - 115 mg/dL [facility] Calcium 9.2 8.4 - 10.2 mg/dL [facility] 04/24/2022 4:19 PM EDT 04/24/2022 4:22 PM EDT us [facility] External Provider LAB BLO OD ORDERABLES Final Result [facility] [address] [place] [phone] * Hepatic Function Panel (04/24/2022 4:19 PM EDT) Bilirubin, Total 0.6 0.0 - 1.0 mg/dL [facility] Bilirubin, Direct <0.2 0.0 - 0.5 mg/dL [facility] Aspartate Amino Transferase 11 5 - 31 U/L [facility] Alanine Aminotransferase 6 0 - 31 U/L [facility] Total Protein 6.5 6.5 - 8.0 g/dL [facility] Albumin Level 4.0 3.5 - 5.0 g/dL [facility] Alkaline Phosphatase 80 39 - 117 U/L [facility] 04/24/2022 4:19 PM EDT 04/24/2022 4:22 PM EDT [facility] External Provider LAB BLO OD ORDERABLES Final Result [facility] [address] [place] [phone] * (ABNORMAL) CBC auto differential (04/24/2022 4:19 PM EDT) White Blood Count 7.3 4.8 - 10.8 X10*3/uL [facility] Red Blood Count 4.14(L) 4.20 - 5.50 X10*6/uL [facility] Hemoglobin 12.1 12.0 - 16.0 g/dl [facility] Hematocrit 36.6(L) 37.0 - 47.0 % [facility] Mean Corpuscular Volume 88.4 80.0 - 98.0 fL [facility] Mean Corpuscular Hemoglobin 29.2 27.0 - 33.0 pg [facility] Mean Corpuscular HGB Conc 33.1 31.0 - 35.0 g/dl [facility] Red Cell Distribution Width 13.4 11.0 - 16.0 % [facility] Platelet Count 333 160 - 400 X10*3/uL [facility] Mean Platelet Volume 8.9(L) 9.4 - 12.3 fL [facility] Neutrophils Percent Auto 62.4 45 - 73 % [facility] Imm Gran Pct Auto 0.3 0.0 - 0.4 % [facility] Lymphocytes Percent Auto 28.8 20 - 40 % [facility] Monocytes Percent Auto 5.3 2 - 11 % [facility] Eosinophils Percent Auto 2.7 0 - 4 % [facility] Basophils Percent Auto 0.5 0 - 2 % [facility] NRBC Pct Auto 0.0 0.0 - 0.2 /100WBC [facility] Neutrophils Absolute Auto 4.6 2.0 - 8.3 x10*3/uL [facility] Imm Gran Abs Auto 0.02 0.00 - 0.03 X10*3/uL [facility] Lymphocytes Absolute Auto 2.1 1.2 - 4.9 X10*3/uL [facility] Monocytes Absolute Auto 0.4 0.1 - 1.2 X10*3/uL [facility] Eosinophils Absolute Auto 0.2 0.0 - 0.4 X10*3/uL [facility] Basophils Absolute Auto 0.0 0.0 - 0.2 X10*3/uL [facility] NRBC Abs Auto 0.000 0.0 - 0.012 X10*3/uL [facility] 04/24/2022 4:19 PM EDT 04/24/2022 4:22 PM EDT us [facility] External Provider LAB BLO OD ORDERABLES Final Result [facility] [address] [place] [phone] * (ABNORMAL) Urinalysis, Complete, with Reflex to Culture (04/17/2022 10:53 AM EST) Color Urine Yellow [facility] Appearance Urine Clear [facility] PH 7.5 5.0 - 9.0 [facility] Glucose Urine UA 100(A) Negative mg/dL [facility] Urine Blood Negative Negative [facility] Specific [place] - Urine >=1.030(H) 1.005 - 1.025 [facility] Urine Protein 100 (2+)(A) Neg-Trace mg/dL [facility] Urine Ketones Negative Negative mg/dL [facility] Nitrite Urine Negative Negative [facility] Leukocyte Esterase Urine Negative Negative [facility] RBC Urine 3-5(A) 0 - 2 /HPF [facility] Urine WBC 0-5 0 - 5 /HPF [facility] Urine Squamous Epithelial Cell 3-5 0 - 2 /HPF [facility] Urine Bacteria None Seen None Seen [facility] Hyaline Casts, Urine 0-2 0 - 2 /LPF [facility] 04/17/2022 10:5 3 AM EST 04/17/2022 10:56 AM EST Narrative [facility] - 04/17/2022 11:06 AM EST Urine, Clean Catch [facility] External Provider LAB URI NE ORDERABLES Final Result Performing Organization Address [facility] Co de Phone Number [facility] [address] [place] [address] [phone] * (ABNORMAL) Sed Rate by Modified Liloren (04/17/2022 8:21 AM EST) Erythrocyte Sedimentation Rate 23(H) 0 - 20 MM/HR [facility] Comment:Patients with polycy themia and many hemoglobin abnormalitiesmay have depressed sed rates whereas patients with anemiamay have elevated sed rates. 04/17/2022 8:21 AM EST 04/17/2022 8:41 AM EST [facility] External Provider LAB BLO OD ORDERABLES Final Result Performing Organization Address [facility] Co de Phone Number [facility] [address] [place] [phone] * Lipase (04/17/2022 8:21 AM EST) Lipase 10 8 - 78 U/L [facility] 04/17/2022 8:21 AM EST 04/17/2022 8:24 AM EST [facility] External Provider LAB BLO OD ORDERABLES Final Result Performing Organization Address [facility] Co de Phone Number [facility] [address] [place] [address] [phone] * C-reactive Protein (04/17/2022 8:21 AM EST) Pathologist [facility] C Reactive Protein 0.23 < or = 0.50 mg/dL [facility] 04/17/2022 8:21 AM EST 04/17/2022 8:24 AM EST [facility] External Provider LAB BLO OD ORDERABLES Final Result Performing Organization Address [facility] Phone Number [facility] [address] [place] [phone] * Magnesium (04/17/2022 8:21 AM EST) [facility] Magnesium 1.6 1.6 - 2.6 mg/dL [facility] 04/17/2022 8:21 AM EST 04/17/2022 8:24 AM EST [facility] External Provider LAB BLO OD ORDERABLES Final Result Performing Organization Address [facility] Phone Number [facility] [address] [place] [phone] * (ABNORMAL) Hepatic Function Panel (04/17/2022 8:21 AM EST) Pathologist [facility] Bilirubin, Total 0.7 0.0 - 1.0 mg/dL [facility] Bilirubin, Direct <0.2 0.0 - 0.5 mg/dL [facility] Aspartate Amino Transferase 10 5 - 31 U/L [facility] Alanine Aminotransferase 7 0 - 31 U/L [facility] Total Protein 6.2(L) 6.5 - 8.0 g/dL [facility] Albumin Level 3.8 3.5 - 5.0 g/dL [facility] Alkaline Phosphatase 71 39 - 117 U/L [facility] 04/17/2022 8:21 AM EST 04/17/2022 8:24 AM EST [facility] External Provider LAB BLO OD ORDERABLES Final Result Performing Organization Address [facility]/ZIP Co de Phone Number [facility] [address] [place] [phone] * (ABNORMAL) Basic Metabolic Panel (04/17/2022 8:21 AM EST) Sodium 138 135 - 145 mmol/L [facility] Potassium 4.9 3.3 - 5.1 mmol/L [facility] Chloride 104 96 - 108 mmol/L [facility] Carbon Dioxide 26 22 - 29 mmol/L [facility] Anion Gap 13 12 - 20 [facility] Urea Nitrogen (BUN) 17(H) 9 - 16 mg/dL [facility] Creatinine, Serum 0.79 0.5 - 1.4 mg/dL [facility] Creatinine Clr Calc Pharmacy 66.3 [facility] Comment:Provided height and weight: 157.48 cm,63.503 kg.eGFR (calculated from the MDRD study equation) and eCrCl(calculated from the Cockcroft-Gault equation) are based ondifferent parameters and may not yield comparable results.If eCrCl result is absurd, please check patient'sheight/weight. Estimated Glomerular Filt Rate >60 [facility] Comment:NOTE: For -Am erican individuals, multiply the result by 1.210.Chronic Kidney Disease: Estimated GFR < 60 mL/min/[id number] Kidney Disease: Estimated GFR < 15 mL/min/1.73m2 Glucose 272(H) 60 - 115 mg/dL [facility] Calcium 9.1 8.4 - 10.2 mg/dL [facility] 04/17/2022 8:21 AM EST 04/17/2022 8:24 AM EST us [facility] External Provider LAB BLO OD ORDERABLES Final Result Performing Organization Address [facility]/ZIP Co de Phone Number [facility] [address] [place] [phone] * (ABNORMAL) CBC auto differential (04/17/2022 8:21 AM EST) White Blood Count 5.7 4.8 - 10.8 X10*3/uL [facility] Red Blood Count 4.01(L) 4.20 - 5.50 X10*6/uL [facility] Hemoglobin 11.7(L) 12.0 - 16.0 g/dl [facility] Hematocrit 35.9(L) 37.0 - 47.0 % [facility] Mean Corpuscular Volume 89.5 80.0 - 98.0 fL [facility] Mean Corpuscular Hemoglobin 29.2 27.0 - 33.0 pg [facility] Mean Corpuscular HGB Conc 32.6 31.0 - 35.0 g/dl [facility] Red Cell Distribution Width 13.4 11.0 - 16.0 % [facility] Platelet Count 309 160 - 400 X10*3/uL [facility] Mean Platelet Volume 9.3(L) 9.4 - 12.3 fL [facility] Neutrophils Percent Auto 60.9 45 - 73 % [facility] Imm Gran Pct Auto 0.4 0.0 - 0.4 % [facility] Lymphocytes Percent Auto 27.3 20 - 40 % [facility] Monocytes Percent Auto 6.3 2 - 11 % [facility] Eosinophils Percent Auto 4.4(H) 0 - 4 % [facility] Basophils Percent Auto 0.7 0 - 2 % [facility] NRBC Pct Auto 0.0 0.0 - 0.2 /100WBC [facility] Neutrophils Absolute Auto 3.5 2.0 - 8.3 x10*3/uL [facility] Imm Gran Abs Auto 0.02 0.00 - 0.03 X10*3/uL [facility] Lymphocytes Absolute Auto 1.6 1.2 - 4.9 X10*3/uL [facility] Monocytes Absolute Auto 0.4 0.1 - 1.2 X10*3/uL [facility] Eosinophils Absolute Auto 0.3 0.0 - 0.4 X10*3/uL [facility] Basophils Absolute Auto 0.0 0.0 - 0.2 X10*3/uL [facility] NRBC Abs Auto 0.000 0.0 - 0.012 X10*3/uL [facility] 04/17/2022 8:21 AM EST 04/17/2022 8:24 AM EST [facility] External Provider LAB BLO OD ORDERABLES Final Result Performing Organization Address [facility] Co de Phone Number [facility] [address] [place] [phone] * Creatinine, Serum (04/13/2022 7:33 AM EST) Creatinine, Serum 0.75 0.5 - 1.4 mg/dL [facility] Creatinine Clr Calc Pharmacy 70.3 [facility] Comment:Provided height and weight: 157.48 cm,64.41 kg.eGFR (calculated from the MDRD study equation) and eCrCl(calculated from the Cockcroft-Gault equation) are based ondifferent parameters and may not yield comparable results.If eCrCl result is absurd, please check patient'sheight/weight. Estimated Glomerular Filt Rate >60 [facility] Comment:NOTE: For -Am erican individuals, multiply the result by 1.210.Chronic Kidney Disease: Estimated GFR < 60 mL/min/1.68j6Hvoemc Kidney Disease: Estimated GFR < 15 mL/min/1.73m2 04/13/2022 7:33 AM EST 04/13/2022 7:38 AM EST [facility] External Provider LAB BLO OD ORDERABLES Final Result Performing Organization Address [facility] Co de Phone Number [facility] [address] [place] [phone] * BUN (Blood Urea Nitrogen) (04/13/2022 7:33 AM EST) Urea Nitrogen (BUN) 12 9 - 16 mg/dL [facility] 04/13/2022 7:33 AM EST 04/13/2022 7:38 AM EST [facility] External Provider LAB BLO OD ORDERABLES Final Result [facility] [address] [place] [phone] * (ABNORMAL) CBC auto differential (04/13/2022 7:33 AM EST) White Blood Count 6.6 4.8 - 10.8 X10*3/uL [facility] Red Blood Count 4.12(L) 4.20 - 5.50 X10*6/uL [facility] Hemoglobin 12.1 12.0 - 16.0 g/dl [facility] Hematocrit 36.6(L) 37.0 - 47.0 % [facility] Mean Corpuscular Volume 88.8 80.0 - 98.0 fL [facility] Mean Corpuscular Hemoglobin 29.4 27.0 - 33.0 pg [facility] Mean Corpuscular HGB Conc 33.1 31.0 - 35.0 g/dl [facility] Red Cell Distribution Width 13.6 11.0 - 16.0 % [facility] Platelet Count 291 160 - 400 X10*3/uL [facility] Mean Platelet Volume 9.0(L) 9.4 - 12.3 fL [facility] Neutrophils Percent Auto 55.5 45 - 73 % [facility] Imm Gran Pct Auto 0.2 0.0 - 0.4 % [facility] Lymphocytes Percent Auto 33.7 20 - 40 % [facility] Monocytes Percent Auto 6.5 2 - 11 % [facility] Eosinophils Percent Auto 3.6 0 - 4 % [facility] Basophils Percent Auto 0.5 0 - 2 % [facility] NRBC Pct Auto 0.0 0.0 - 0.2 /100WBC [facility] Neutrophils Absolute Auto 3.7 2.0 - 8.3 x10*3/uL [facility] Imm Gran Abs Auto 0.01 0.00 - 0.03 X10*3/uL [facility] Lymphocytes Absolute Auto 2.2 1.2 - 4.9 X10*3/uL [facility] Monocytes Absolute Auto 0.4 0.1 - 1.2 X10*3/uL [facility] Eosinophils Absolute Auto 0.2 0.0 - 0.4 X10*3/uL [facility] Basophils Absolute Auto 0.0 0.0 - 0.2 X10*3/uL [facility] NRBC Abs Auto 0.000 0.0 - 0.012 X10*3/uL [facility] 04/13/2022 7:33 AM EST 04/13/2022 7:38 AM EST [facility] External Provider LAB BLO OD ORDERABLES Final Result Performing Organization Address City/[facility]/ZIP Co de Phone Number [facility] [address] [place] [phone] * (ABNORMAL) GLUCOSE, WHOLE BLOOD (04/13/2022 7:27 AM EST) [facility] Glucose, Whole Blood 197(H) 60 - 115 mg/dL [facility] Comment:METER #: [id number] 7 04/13/2022 7:27 AM EST 04/13/2022 7:31 AM EST [facility] External Provider LAB BLO OD ORDERABLES Final Result Performing Organization Address [facility] Co de Phone Number [facility] [address] [place] [phone] * HIGH SENSITIVITY TROPONIN I (04/03/2022 8:36 PM EST) [facility] TROPONIN I HIGH SENSITIVITY 6.0 <3.5 - 17.0 ng/L [facility] Comment:The Ibrahim high sens itivity Troponin-I results should beused in conjunction with other diagnostic information suchas ECG, clinical observations and information, and patientsymptoms to aid in the diagnosis of [place]. 04/03/2022 8:36 PM EST 04/03/2022 8:38 PM EST [facility] External Provider LAB BLO OD ORDERABLES Final Result Performing Organization Address [facility]/ZIP Co de Phone Number [facility] [address] [place] [phone] * Lipase (04/03/2022 8:36 PM EST) Lipase 10 8 - 78 U/L [facility] 04/03/2022 8:36 PM EST 04/03/2022 8:38 PM EST [facility] External Provider LAB BLO OD ORDERABLES Final Result Performing Organization Address [facility] Co de Phone Number [facility] [address] [place] [phone] * (ABNORMAL) Basic Metabolic Panel (04/03/2022 8:36 PM EST) Sodium 138 135 - 145 mmol/L [facility] Potassium 3.9 3.3 - 5.1 mmol/L [facility] Chloride 104 96 - 108 mmol/L [facility] Carbon Dioxide 27 22 - 29 mmol/L [facility] Anion Gap 11(L) 12 - 20 [facility] Urea Nitrogen (BUN) 11 9 - 16 mg/dL [facility] Creatinine, Serum 0.74 0.5 - 1.4 mg/dL [facility] Creatinine Clr Calc Pharmacy 70.7 [facility] Comment:Provided height and weight: 157.48 cm,63.503 kg.eGFR (calculated from the MDRD study equation) and eCrCl(calculated from the Cockcroft-Gault equation) are based ondifferent parameters and may not yield comparable results.If eCrCl result is absurd, please check patient'sheight/weight. Estimated Glomerular Filt Rate >60 [facility] Comment:NOTE: For -Am erican individuals, multiply the result by 1.210.Chronic Kidney Disease: Estimated GFR < 60 mL/min/[id number] Kidney Disease: Estimated GFR < 15 mL/min/1.73m2 Glucose 246(H) 60 - 115 mg/dL [facility] Calcium 9.0 8.4 - 10.2 mg/dL [facility] 04/03/2022 8:36 PM EST 04/03/2022 8:38 PM EST [facility] External Provider LAB BLO OD ORDERABLES Final Result Performing Organization Address [facility] de Phone Number [facility] [address] [place] [phone] * (ABNORMAL) Hepatic Function Panel (04/03/2022 8:36 PM EST) Bilirubin, Total 0.6 0.0 - 1.0 mg/dL [facility] Bilirubin, Direct 0.2 0.0 - 0.5 mg/dL [facility] Aspartate Amino Transferase 10 5 - 31 U/L [facility] Alanine Aminotransferase 8 0 - 31 U/L [facility] Total Protein 5.8(L) 6.5 - 8.0 g/dL [facility] Albumin Level 3.7 3.5 - 5.0 g/dL [facility] Alkaline Phosphatase 76 39 - 117 U/L [facility] 04/03/2022 8:36 PM EST 04/03/2022 8:38 PM EST [facility] External Provider LAB BLO OD ORDERABLES Final Result Performing Organization Address [facility] Co de Phone Number [facility] [address] [place] [phone] * (ABNORMAL) CBC auto differential (04/03/2022 8:36 PM EST) White Blood Count 6.0 4.8 - 10.8 X10*3/uL [facility] Red Blood Count 4.10(L) 4.20 - 5.50 X10*6/uL [facility] Hemoglobin 12.0 12.0 - 16.0 g/dl [facility] Hematocrit 35.6(L) 37.0 - 47.0 % [facility] Mean Corpuscular Volume 86.8 80.0 - 98.0 fL [facility] Mean Corpuscular Hemoglobin 29.3 27.0 - 33.0 pg [facility] Mean Corpuscular HGB Conc 33.7 31.0 - 35.0 g/dl [facility] Red Cell Distribution Width 13.3 11.0 - 16.0 % [facility] Platelet Count 276 160 - 400 X10*3/uL [facility] Mean Platelet Volume 9.2(L) 9.4 - 12.3 fL [facility] Neutrophils Percent Auto 58.2 45 - 73 % [facility] Imm Gran Pct Auto 0.2 0.0 - 0.4 % [facility] Lymphocytes Percent Auto 32.9 20 - 40 % [facility] Monocytes Percent Auto 6.0 2 - 11 % [facility] LABS Eosinophils Percent Auto 2.2 0 - 4 % [facility] Basophils Percent Auto 0.5 0 - 2 % [facility] NRBC Pct Auto 0.0 0.0 - 0.2 /100WBC [facility] Neutrophils Absolute Auto 3.5 2.0 - 8.3 x10*3/uL [facility] Imm Gran Abs Auto 0.01 0.00 - 0.03 X10*3/uL [facility] Lymphocytes Absolute Auto 2.0 1.2 - 4.9 X10*3/uL [facility] Monocytes Absolute Auto 0.4 0.1 - 1.2 X10*3/uL [facility] Eosinophils Absolute Auto 0.1 0.0 - 0.4 X10*3/uL [facility] Basophils Absolute Auto 0.0 0.0 - 0.2 X10*3/uL [facility] NRBC Abs Auto 0.000 0.0 - 0.012 X10*3/uL [facility] 04/03/2022 8:36 PM EST 04/03/2022 8:38 PM EST [facility] External Provider LAB BLO OD ORDERABLES Final Result Performing Organization Address [facility] de Phone Number [facility] [address] [place] [phone] * (ABNORMAL) GLUCOSE, WHOLE BLOOD (04/03/2022 7:56 PM EST) Pathologist [facility] Glucose, Whole Blood 227(H) 60 - 115 mg/dL [facility] Comment:METER #: [id number] 04/03/2022 7:56 PM EST 04/03/2022 8:01 PM EST [facility] External Provider LAB BLO OD ORDERABLES Final Result Performing Organization Address [facility] Phone Number [facility] [address] [place] [address] [phone] * (ABNORMAL) B Type Natriuretic Peptide (BNP) (03/09/2022 5:39 PM EST) Pathologist [facility] B Type Natriuretic Peptide 125(H) <100 pg/mL [facility] Comment:For those patients w ho are being treated with Natrecor(nesiritide, recombinant BNP), BNP testing should beperformed at least two hours post treatment in order toensure that only endogenous levels of BNP are detected. 03/09/2022 5:39 PM EST 03/09/2022 6:48 PM EST [facility] External Provider LAB BLO OD ORDERABLES Final Result Performing Organization Address [facility] de Phone Number [facility] [address] [place] [address] [phone] * SARS-CoV-2 RNA, Influenza A/B, and RSV RNA, Ql NAAT (03/09/2022 5:39 PM EST) Pathologist [facility] Influenza A PCR NEGATIVE Negative [facility] Influenza B PCR NEGATIVE Negative [facility] Resp Syncy Virus RNA Qual PCR NEGATIVE Negative [facility] SARS COV2 PCR NEGATIVE Negative [facility] SARS/Flu/RSV Note See Note [facility] Comment:All test results mus t [...] use by authorized laboratories.Testing performed on the [employer] GeneXpert utilizingreal-time RT-PCR.All SARS CoV2 and positive influenza A/B results arereported to [facility]. 03/09/2022 5:39 PM EST 03/09/2022 5:43 PM EST [facility] Exter nal Provider LAB MICROBIOLOGY - GENERAL ORDERABLES Final Result [facility] [address] [place] [phone] * HIGH SENSITIVITY TROPONIN I (03/09/2022 5:39 PM EST) Pathologist [facility] TROPONIN I HIGH SENSITIVITY 5.6 <3.5 - 17.0 ng/L [facility] Comment:The Ibrahim high sens itivity Troponin-I results should beused in conjunction with other diagnostic information suchas ECG, clinical observations and information, and patientsymptoms to aid in the diagnosis of [place]. 03/09/2022 5:39 PM EST 03/09/2022 5:43 PM EST us [facility] External Provider LAB BLO OD ORDERABLES Final Result [facility] [address] [place] [phone] * (ABNORMAL) Comprehensive Metabolic Panel (03/09/2022 5:39 PM EST) Sodium 139 135 - 145 mmol/L [facility] Potassium 3.9 3.3 - 5.1 mmol/L [facility] Chloride 103 96 - 108 mmol/L [facility] Carbon Dioxide 27 22 - 29 mmol/L [facility] Anion Gap 13 12 - 20 [facility] Urea Nitrogen (BUN) 18(H) 9 - 16 mg/dL [facility] Creatinine, Serum 0.95 0.5 - 1.4 mg/dL [facility] Creatinine Clr Calc Pharmacy 53.0 [facility] Comment:Provided height and weight: 152.4 cm,65.2 kg.eGFR (calculated from the MDRD study equation) and eCrCl(calculated from the Cockcroft-Gault equation) are based ondifferent parameters and may not yield comparable results.If eCrCl result is absurd, please check patient'sheight/weight. Estimated Glomerular Filt Rate >60 [facility] Comment:NOTE: For -Am erican individuals, multiply the result by 1.210.Chronic Kidney Disease: Estimated GFR < 60 mL/min/1.28v2Gvbqic Kidney Disease: Estimated GFR < 15 mL/min/1.73m2 Glucose 326(H) 60 - 115 mg/dL [facility] Calcium 9.1 8.4 - 10.2 mg/dL [facility] Bilirubin, Total 0.3 0.0 - 1.0 mg/dL [facility] Aspartate Amino Transferase 8 5 - 31 U/L [facility] Alanine Aminotransferase <6 0 - 31 U/L [facility] Total Protein 5.9(L) 6.5 - 8.0 g/dL [facility] Albumin Level 3.6 3.5 - 5.0 g/dL [facility] Alkaline Phosphatase 81 39 - 117 U/L [facility] 03/09/2022 5:39 PM EST 03/09/2022 5:43 PM EST us [facility] External Provider LAB BLO OD ORDERABLES Final Result [facility] [address] [place] [phone] * (ABNORMAL) CBC auto differential (03/09/2022 5:39 PM EST) White Blood Count 7.3 4.8 - 10.8 X10*3/uL [facility] Red Blood Count 4.03(L) 4.20 - 5.50 X10*6/uL [facility] Hemoglobin 11.7(L) 12.0 - 16.0 g/dl [facility] Hematocrit 35.1(L) 37.0 - 47.0 % [facility] Mean Corpuscular Volume 87.1 80.0 - 98.0 fL [facility] Mean Corpuscular Hemoglobin 29.0 27.0 - 33.0 pg [facility] Mean Corpuscular HGB Conc 33.3 31.0 - 35.0 g/dl [facility] Red Cell Distribution Width 13.4 11.0 - 16.0 % [facility] Platelet Count 296 160 - 400 X10*3/uL [facility] Mean Platelet Volume 9.3(L) 9.4 - 12.3 fL [facility] Neutrophils Percent Auto 63.9 45 - 73 % [facility] Imm Gran Pct Auto 0.1 0.0 - 0.4 % [facility] Lymphocytes Percent Auto 27.1 20 - 40 % [facility] Monocytes Percent Auto 5.9 2 - 11 % [facility] Eosinophils Percent Auto 2.6 0 - 4 % [facility] Basophils Percent Auto 0.4 0 - 2 % [facility] NRBC Pct Auto 0.0 0.0 - 0.2 /100WBC [facility] Neutrophils Absolute Auto 4.6 2.0 - 8.3 x10*3/uL [facility] Imm Gran Abs Auto 0.01 0.00 - 0.03 X10*3/uL [facility] Lymphocytes Absolute Auto 2.0 1.2 - 4.9 X10*3/uL [facility] Monocytes Absolute Auto 0.4 0.1 - 1.2 X10*3/uL [facility] Eosinophils Absolute Auto 0.2 0.0 - 0.4 X10*3/uL [facility] Basophils Absolute Auto 0.0 0.0 - 0.2 X10*3/uL [facility] NRBC Abs Auto 0.000 0.0 - 0.012 X10*3/uL [facility] 03/09/2022 5:39 PM EST 03/09/2022 5:43 PM EST [facility] External Provider LAB BLO OD ORDERABLES Final Result [facility] [address] [place] [phone] * Prothrombin Time-INR (03/09/2022 5:39 PM EST) Prothrombin Time 10.9 10.0 - 13.1 SEC [facility] INTERNATIONAL NORM RATIO 1.0 0.9 - 1.1 [facility] Comment:INTERNATIONAL NORMAL IZED RATIO (INR) [...] 5:39 PM EST 03/09/2022 5:43 PM EST [facility] External Provider LAB BLO OD ORDERABLES Final Result Performing Organization Address [facility] Co de Phone Number [facility] [address] [place] [phone] * GLUCOSE, WHOLE BLOOD (03/01/2022 12:41 AM EST) Glucose, Whole Blood 79 60 - 115 mg/dL [facility] Comment:METER #: [id number] 1 03/01/2022 12:4 1 AM EST 03/01/2022 12:46 AM EST [facility] External Provider LAB BLO OD ORDERABLES Final Result Performing Organization Address [facility] Phone Number [facility] [address] [place] [address] [phone] * (ABNORMAL) GLUCOSE, WHOLE BLOOD (02/28/2022 10:39 PM EST) Glucose, Whole Blood 273(H) 60 - 115 mg/dL [facility] Comment:METER #: [id number] 1 02/28/2022 10:3 9 PM EST 02/28/2022 10:45 PM EST [facility] External Provider LAB BLO OD ORDERABLES Final Result Performing Organization Address [facility] Co de Phone Number [facility] [address] [place] [address] [phone] * (ABNORMAL) Comprehensive Metabolic Panel (02/28/2022 9:42 PM EST) Sodium 138 135 - 145 mmol/L [facility] Potassium 4.3 3.3 - 5.1 mmol/L [facility] Comment:Slight Hemolysis Chloride 106 96 - 108 mmol/L [facility] Carbon Dioxide 24 22 - 29 mmol/L [facility] Anion Gap 12 12 - 20 [facility] Urea Nitrogen (BUN) 14 9 - 16 mg/dL [facility] Creatinine, Serum 0.87 0.5 - 1.4 mg/dL [facility] Creatinine Clr Calc Pharmacy 57.2 [facility] Comment:Provided height and weight: 152.4 cm,63.503 kg.eGFR (calculated from the MDRD study equation) and eCrCl(calculated from the Cockcroft-Gault equation) are based ondifferent parameters and may not yield comparable results.If eCrCl result is absurd, please check patient'sheight/weight. Estimated Glomerular Filt Rate >60 [facility] Comment:NOTE: For -Am erican individuals, multiply the result by 1.210.Chronic Kidney Disease: Estimated GFR < 60 mL/min/1.05p2Aaaypz Kidney Disease: Estimated GFR < 15 mL/min/1.73m2 Glucose 378(HH) 60 - 115 mg/dL [facility] Comment:Critical value for t est(s): GLUR Results called to and readback by: EULA Person calling: BIANKA Date: 02/28/22Time: 2220 Calcium 9.3 8.4 - 10.2 mg/dL [facility] Bilirubin, Total 0.3 0.0 - 1.0 mg/dL [facility] Aspartate Amino Transferase 12 5 - 31 U/L [facility] Comment:Slight Hemolysis Alanine Aminotransferase 7 0 - 31 U/L [facility] Total Protein 6.7 6.5 - 8.0 g/dL [facility] Albumin Level 3.9 3.5 - 5.0 g/dL [facility] Alkaline Phosphatase 83 39 - 117 U/L [facility] 02/28/2022 9:42 PM EST 02/28/2022 9:48 PM EST us [facility] External Provider LAB BLO OD ORDERABLES Final Result [facility] [address] [place] [phone] * HIGH SENSITIVITY TROPONIN I (02/28/2022 9:42 PM EST) TROPONIN I HIGH SENSITIVITY 7.1 <3.5 - 17.0 ng/L [facility] Comment:The Ibrahim high sens itivity Troponin-I results should beused in conjunction with other diagnostic information suchas ECG, clinical observations and information, and patientsymptoms to aid in the diagnosis of OK. 02/28/2022 9:42 PM EST 02/28/2022 9:48 PM EST us [facility] External Provider LAB BLO OD ORDERABLES Final Result [facility] [address] [place] [address] [phone] * (ABNORMAL) CBC (02/28/2022 9:42 PM EST) [facility] White Blood Count 7.0 4.8 - 10.8 X10*3/uL [facility] Red Blood Count 4.22 4.20 - 5.50 X10*6/uL [facility] Hemoglobin 12.1 12.0 - 16.0 g/dl [facility] Hematocrit 36.4(L) 37.0 - 47.0 % [facility] Mean Corpuscular Volume 86.3 80.0 - 98.0 fL [facility] Mean Corpuscular Hemoglobin 28.7 27.0 - 33.0 pg [facility] Mean Corpuscular HGB Conc 33.2 31.0 - 35.0 g/dl [facility] Red Cell Distribution Width 13.3 11.0 - 16.0 % [facility] Platelet Count 311 160 - 400 X10*3/uL [facility] Mean Platelet Volume 9.7 9.4 - 12.3 fL [facility] NRBC Pct Auto 0.0 0.0 - 0.2 /100WBC [facility] NRBC Abs Auto 0.000 0.0 - 0.012 X10*3/uL [facility] 02/28/2022 9:42 PM EST 02/28/2022 9:48 PM EST [facility] External Provider LAB BLO OD ORDERABLES Final Result Performing Organization Address City/[facility]/ZIP Co de Phone Number [facility] [address] [place] [phone] * (ABNORMAL) GLUCOSE, WHOLE BLOOD (02/28/2022 9:38 PM EST) Glucose, Whole Blood 379(HH) 60 - 115 mg/dL [facility] Comment:METER #: [id number] 1 02/28/2022 9:38 PM EST 02/28/2022 9:48 PM EST [facility] External Provider LAB BLO OD ORDERABLES Final Result Performing Organization Address [facility] Co de Phone Number [facility] [address] [place] [address] [phone] * (ABNORMAL) Urinalysis, Complete, with Reflex to Culture (02/22/2022 3:20 PM EST) Color Urine Yellow [facility] Appearance Urine Cloudy [facility] PH 6.5 5.0 - 9.0 [facility] Glucose Urine UA >=1000(A) Negative mg/dL [facility] Urine Blood Negative Negative [facility] Specific [place] - Urine 1.020 1.005 - 1.025 [facility] Urine Protein 100 (2+)(A) Neg-Trace mg/dL [facility] Urine Ketones Negative Negative mg/dL [facility] Nitrite Urine Negative Negative [facility] Leukocyte Esterase Urine Small (1+)(A) Negative [facility] RBC Urine 3-5(A) 0 - 2 /HPF [facility] Urine WBC 0-5 0 - 5 /HPF [facility] Urine Squamous Epithelial Cell 0-2 0 - 2 /HPF [facility] Urine Bacteria None Seen None Seen [facility] Hyaline Casts, Urine 3-5 0 - 2 /LPF [facility] 02/22/2022 3:20 PM EST 02/22/2022 3:27 PM EST Narrative [facility] - 02/22/2022 4:14 PM EST [id number], Clean Catch [facility] External Provider LAB URI NE ORDERABLES Final Result Performing Organization Address [facility]/ZIP Co de Phone Number [facility] [address] [place] [address] [phone] * SARS-CoV-2 RNA, Influenza A/B, and RSV RNA, Ql NAAT (02/22/2022 3:14 PM EST) Influenza A PCR NEGATIVE Negative [facility] Influenza B PCR NEGATIVE Negative [facility] Resp Syncy Virus RNA Qual PCR NEGATIVE Negative [facility] SARS COV2 PCR NEGATIVE Negative [facility] SARS/Flu/RSV Note See Note [facility] Comment:All test results mus t [...] use by authorized laboratories.Testing performed on the [employer] GeneXpert utilizingreal-time RT-PCR.All SARS CoV2 and positive influenza A/B results arereported to [facility]. 02/22/2022 3:14 PM EST 02/22/2022 3:19 PM EST [facility] Exter nal Provider LAB MICROBIOLOGY - GENERAL ORDERABLES Final Result Performing Organization Address [facility]/ZIP Co de Phone Number [facility] [address] [place] [address] [phone] * HIGH SENSITIVITY TROPONIN I (02/22/2022 3:14 PM EST) [facility] TROPONIN I HIGH SENSITIVITY 8.8 <3.5 - 17.0 ng/L [facility] Comment:The Ibrahim high sens itivity Troponin-I results should beused in conjunction with other diagnostic information suchas ECG, clinical observations and information, and patientsymptoms to aid in the diagnosis of [place]. 02/22/2022 3:14 PM EST 02/22/2022 3:19 PM EST [facility] External Provider LAB BLO OD ORDERABLES Final Result Performing Organization Address [facility]/ZIP Co de Phone Number [facility] [address] [place] [address] [phone] * Magnesium (02/22/2022 3:14 PM EST) [facility] Magnesium 1.6 1.6 - 2.6 mg/dL [facility] 02/22/2022 3:14 PM EST 02/22/2022 3:19 PM EST [facility] External Provider LAB BLO OD ORDERABLES Final Result Performing Organization Address [facility] Co de Phone Number [facility] [address] [place] [address] [phone] * (ABNORMAL) Basic Metabolic Panel (02/22/2022 3:14 PM EST) [facility] Sodium 136 135 - 145 mmol/L [facility] Potassium 4.4 3.3 - 5.1 mmol/L [facility] Chloride 103 96 - 108 mmol/L [facility] Carbon Dioxide 27 22 - 29 mmol/L [facility] Anion Gap 10(L) 12 - 20 [facility] Urea Nitrogen (BUN) 20(H) 9 - 16 mg/dL [facility] Creatinine, Serum 0.99 0.5 - 1.4 mg/dL [facility] Creatinine Clr Calc Pharmacy 50.6 [facility] Comment:Provided height and weight: 152.4 cm,64.5 kg.eGFR (calculated from the MDRD study equation) and eCrCl(calculated from the Cockcroft-Gault equation) are based ondifferent parameters and may not yield comparable results.If eCrCl result is absurd, please check patient'sheight/weight. Estimated Glomerular Filt Rate 57 [facility] Comment:NOTE: For -Am erican individuals, multiply the result by 1.210.Chronic Kidney Disease: Estimated GFR < 60 mL/min/1.98m3Lkqrvj Kidney Disease: Estimated GFR < 15 mL/min/1.73m2 Glucose 343(H) 60 - 115 mg/dL [facility] Calcium 9.3 8.4 - 10.2 mg/dL [facility] 02/22/2022 3:14 PM EST 02/22/2022 3:19 PM EST [facility] External Provider LAB BLO OD ORDERABLES Final Result [facility] [address] [place] [address] [phone] * (ABNORMAL) Hepatic Function Panel (02/22/2022 3:14 PM EST) Bilirubin, Total 0.4 0.0 - 1.0 mg/dL [facility] Bilirubin, Direct <0.2 0.0 - 0.5 mg/dL [facility] Aspartate Amino Transferase 10 5 - 31 U/L [facility] Alanine Aminotransferase 6 0 - 31 U/L [facility] Total Protein 6.1(L) 6.5 - 8.0 g/dL [facility] Albumin Level 3.7 3.5 - 5.0 g/dL [facility] Alkaline Phosphatase 82 39 - 117 U/L [facility] 02/22/2022 3:14 PM EST 02/22/2022 3:19 PM EST us [facility] External Provider LAB BLO OD ORDERABLES Final Result [facility] [address], [place] [phone] * (ABNORMAL) CBC auto differential (02/22/2022 3:14 PM EST) White Blood Count 5.6 4.8 - 10.8 X10*3/uL [facility] Red Blood Count 3.99(L) 4.20 - 5.50 X10*6/uL [facility] Hemoglobin 11.8(L) 12.0 - 16.0 g/dl [facility] Hematocrit 35.1(L) 37.0 - 47.0 % [facility] Mean Corpuscular Volume 88.0 80.0 - 98.0 fL [facility] Mean Corpuscular Hemoglobin 29.6 27.0 - 33.0 pg [facility] Mean Corpuscular HGB Conc 33.6 31.0 - 35.0 g/dl [facility] Red Cell Distribution Width 13.2 11.0 - 16.0 % [facility] Platelet Count 265 160 - 400 X10*3/uL [facility] Mean Platelet Volume 10.0 9.4 - 12.3 fL [facility] Neutrophils Percent Auto 49.1 45 - 73 % [facility] Imm Gran Pct Auto 0.4 0.0 - 0.4 % [facility] Lymphocytes Percent Auto 40.1(H) 20 - 40 % [facility] Monocytes Percent Auto 6.1 2 - 11 % [facility] Eosinophils Percent Auto 3.4 0 - 4 % [facility] Basophils Percent Auto 0.9 0 - 2 % [facility] NRBC Pct Auto 0.0 0.0 - 0.2 /100WBC [facility] Neutrophils Absolute Auto 2.7 2.0 - 8.3 x10*3/uL [facility] Imm Gran Abs Auto 0.02 0.00 - 0.03 X10*3/uL [facility] Lymphocytes Absolute Auto 2.2 1.2 - 4.9 X10*3/uL [facility] Monocytes Absolute Auto 0.3 0.1 - 1.2 X10*3/uL [facility] Eosinophils Absolute Auto 0.2 0.0 - 0.4 X10*3/uL [facility] Basophils Absolute Auto 0.1 0.0 - 0.2 X10*3/uL [facility] NRBC Abs Auto 0.000 0.0 - 0.012 X10*3/uL [facility] 02/22/2022 3:14 PM EST 02/22/2022 3:19 PM EST [facility] External Provider LAB BLO OD ORDERABLES Final Result Performing Organization Address [facility] Co de Phone Number [facility] [address] [place] [address] [phone] * Culture, Urine, Routine (02/22/2022 12:00 AM EST) 02/22/2022 02/22/2022 5:2 3 PM EST Comment:UACC Narrative [facility] - 02/24/2022 11:31 AM EST Urine Culture Report Result Urine Culture 10,000 to 50,000 cfu/ml Urine Culture Mixed bacterial [place] characteristic of Urine Culture urogenital contamination. 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 [employer] Relationship Specialty Start Date End Date Radha Jamison DO [address] [place] [phone] PCP - General Family Medicine 01/26/12 Abdias Murillo, Camron [address] [place] [address] Pharmacist Internal Medicine 03/21/22 08/30/23 Nelia Sullivan, KeithD [address] [place] [address] Pharmacist Internal Medicine 08/31/23 Letty Rinaldi 12/16/24 12/18/24 Dalila Carson, RN [address] [place] [phone] Registered Nurse Family Medicine 12/31/24 Ekta Reynolds 12/31/24 Laurel Monterroso Chief Lock Tender OperatorSmall Kick Press Operator 10/27/22 Saige Aguilar 09/26/23 documented as of this encounter
--- OUTSIDE RECORDS SUMMARY | 2025-01-28 12:22 | XMS_ITS | Clinical Summary ---
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 Use [...] and with evening meal. 60 tablet 11 01/29/20 10:44 AM EST 025 2025 Active Asmanex HFA 100 [...] 025 Active docusate sodium (Colace) 100 MG capsuleIndications :Anemia, unspecified type TAKE 1 CAPSULE BY MOUTH TWICE DAILY IN THE MORNING AND IN THE EVENING FOR CONSTIPATION 180 capsule 3 12/28/19 2:27 PM EST 025 Active aspirin (Aspirin Low Dose) 81 [...] Active insulin pen needle (Pentips Generic Pen [place]) 32G x 4 mm miscIndications:Ty pe 2 [...] 1 (one) time per week. 3 mL 01/29/20 10:44 AM EST Active carvedilol (Coreg) 25 MG tabletIndications: Hypertension, unspecified type TAKE 1 TABLET BY MOUTH TWICE DAILY IN THE MORNING AND IN THE EVENING WITH FOOD 180 tablet 1 12/28/19 2:27 PM EST 025 Active Ventolin HFA 108 (90 Base) MCG/ACT [...] MG SL tabletIndications: Coronary artery disease of [place] artery of [place] heart with stable angina pectoris DISSOLVE 1 TABLET UNDER THE TONGUE EVERY 5 MINUTES NEEDED FOR CHEST PAIN. CALL 911 IF NO RELIEF 25 tablet 1 025 Active amitriptyline (Elavil) 50 MG tabletIndications: Other chronic pain TAKE 1 TABLET BY MOUTH AT BEDTIME 30 tablet 3 025 Active escitalopram (Lexapro) 20 MG tabletIndications: Depression, unspecified depression type TAKE 1 TABLET BY MOUTH EVERY EVENING 90 tablet 3 025 Active loratadine (Claritin) 10 MG tablet TAKE 1 TABLET BY MOUTH EVERY DAY 90 tablet 3 12/28/19 25 2:27 PM EST 025 Active pioglitazone (Actos) 15 MG tabletIndications: Type 2 diabetes mellitus with hyperglycemia, with long-term current use of insulin ([facility]) TAKE 1 TABLET BY MOUTH EVERY MORNING 90 tablet 3 12/28/19 25 2:27 PM EST 025 Active telmisartan (Micardis) 80 MG tabletIndications: Resistant hypertension,Type 2 diabetes mellitus with hyperglycemia, with long-term current use of insulin ([facility]) Take 1 tablet (80 mg) by mouth Once per day. 90 tablet 1 12/28/19 25 2:27 PM EST 025 Active rosuvastatin (Crestor) 40 MG tablet Take 1 tablet (40 mg) by mouth at bedtime. 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 Increase as directed to max of 30 units per day. 15 mL 1 01/29/20 10:44 AM EST Active Eliquis 5 MG tabletIndications: Splenic infarct TAKE 1 TABLET BY MOUTH TWICE DAILY IN THE MORNING AND IN THE EVENING 60 tablet 3 01/29/20 10:44 AM EST 025 Active ezetimibe (Zetia) 10 MG tablet Take 1 tablet (10 mg) by mouth Once per day. 90 tablet 1 01/29/20 10:44 AM EST 025 Active ezetimibe (Zetia) 10 MG tablet Take 1 tablet (10 mg) by mouth Once per day. 90 tablet 1 025 2024 Discontinued(R eorder (will not trigger notification to Pharmacy)) hydrOXYzine pamoate (Vistaril) 25 MG capsuleIndications :Mood disorder (CMS/HCC) TAKE 1 CAPSULE BY MOUTH EVERY SIX HOURS 60 capsule 2 12/28/19 2:27 PM EST 025 2024 Discontinued Eliquis 5 MG tabletIndications: Splenic infarct Take 1 tablet (5 mg) by mouth 2 times daily. 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 025 2024 Discontinued(R eorder (will not trigger notification to Pharmacy)) triamcinolone (Kenalog) 0.1 % ointment Apply topically if needed in the morning and at bedtime for rash for up to 28 days. 30 g 1 12/31/19 25 2:06 PM EST 025 2024 Active Problems Problem Noted Date Diagnosed Date Splenic infarct 10/03/2024 Assessment & Plan (10/03/2024 10:27 AM EDT): Seems to be unprovoked I refilled her apixaban, I will refer her to hematology for further input Coronary artery disease of n ative artery of rapp[place]ock heart with stable angina pectoris 10/03/2024 Assessment [...] B vaccine -pap wnl May 2014 with KELLY MACHINE OPERATOR, advised schedule f/u, contact info given -mammo [...] importance of smoking cessation -recommend follow-up with CD pharmacist for medication adjustments -Emergency precautions reviewed [...] -she will meet w/ HIM RN re: UPPER INSPECTOR svcs Obstructive sleep apnea 12/04/2014 Tobacco dependence [...] the day and to continue care w enamel cracker and PCP ------ Addendum : EMT came and pickling solution maker pt but once she was taken to ambulance pt decide not to go to ED and signed leave AMA 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 05/04/2020 03/18/2022 Encounters Date Type Department Care Team Description 01/20/2025 Refill [facility] [address] [place] [address] Radha Jamison DO 01/17/[address] [address] Vickie Penaloza MD Splenic infarct 01/07/2025 Telephone [facility] [address] [place] [address] Radha Jamison DO Appointment Request 01/07/2025 Travel 01/03/[address] [address] Radha Jamison DO Appointment Request 01/02/[address] [address] Radha Jamison DO Mood disorder (CMS/HCC) 12/31/2024 Patient Outreach [address] [address] Radha Jamison DO Care Coordination (CHW Chart Review) 12/31/2024 Patient Outreach [address] [address] Radha Jamison DO Care Management ([place]- chart review) 12/31/2024 Patient Outreach [address] [address] Radha Jamison DO 12/30/[address] [address] Radha Jamison DO Appointment Request 12/27/2024 11:45 AM EST Office Visit [address] [address] Radha Jamison DO 12/27/2024 Travel 12/25/[address] [address] Radha Jamison DO Chart Prep 12/23/[address] [address] Audrey Foreman MD No Show 12/20/[address] [address] Radha Jamison DO Appointment Request 12/19/[address] [address] Radha Jamison DO chart prep 12/18/2024 Patient Outreach [facility] [address] [place] [address] Radha Jamison DO Care Coordination (Communication to pts Assigned CP Coordinator ) 12/17/[address] [address] Radha Jamison DO Order 12/17/[address] [address] Radha Jamison DO ER Follow-up 12/17/[address] [address] Radha Jamison DO 12/17/2024 Patient Outreach [facility] [address] [place] [address] Radha Jamison DO Care Coordination (CP Care Coordination Chart Review) 12/16/2024 Patient Outreach [address] [address] Radha Jamison DO 12/16/2024 Refill [facility] [address] [place] [address] Radha Jamison DO Hypertension, unspecified type 12/16/2024 Orders Only GENERIC EXTERNAL DATA DEPARTMENT Provider, Generic External Data 2024 Orders Only GENERIC EXTERNAL DATA DEPARTMENT Provider, Generic External Data 12/06/2024 Travel 12/05/[address] [address] Radha Jamison DO Care Coordination (Utilization Home Health) 12/05/[address] [address] Radha Jamison DO Care Coordination (Home Health Utilization) 12/05/2024 Telephone [facility] [address] [facility] [place] [address] Radha Jamison DO 12/03/2024 Orders Only [facility] [address] [facility] [address] Radha Jamison DO Type 2 diabetes mellitus with hyperglycemia, with long-term current use of insulin (HCC) (Primary Dx); Essential (primary) hypertension 11/26/2024 Refill [facility] [address] [facility] [place] [address] Radha Jamison DO Depression, unspecified depression type; Type 2 diabetes mellitus with hyperglycemia, with long-term current use of insulin (HCC) 11/22/2024 Refill [facility] [address] [facility] [address] Radha Jamison DO Other chronic pain 11/17/2024 Refill [facility] [address] [place] [address] Vickie Penaloza MD Coronary artery disease of [place] artery of [place] heart with stable angina pectoris 11/15/2024 2:00 PM EDT Office Visit [facility] [address] [place] [address] Aziza Alas NP Hospital discharge follow-up (Primary Dx); Resistant hypertension; Bilateral carotid artery stenosis 11/15/2024 Travel 11/14/2024 Telephone [facility] [address] [place] [address] Radha aJmison DO Appointment Request 11/08/2024 Telephone [facility] [address] [place] [address] Patricia Rinaldi PharmD 11/05/2024 10:00 AM EDT Office Visit [facility] [address] [place] [address] Marita Contreras, OD Type 2 diabetes mellitus with hyperglycemia, with long-term current use of insulin ([facility]/HCC) (Primary Dx) 11/05/2024 Telephone [facility] [address] [place] [address] Nelia Sullivan, PharmD chart prep 11/05/2024 Travel from Last 3 Months Immunizations Immunization [...] Sign Reading Time Taken Comments Blood Pressure 120/58 01/07/2025 10:33 AM EST Pulse 86 12/27/2024 11:58 AM EST [...] 02/11/2025 10:30 AM EST Medication Management [facility] [address] [place] [address] Nelia Sullivan, PharmD [address] [place] [address] 03/13/2025 9:30 AM EST Office Visit [facility] [address] [place] [address] TarRadha bang, OD [address] [place] [address] Health Maintenance Due Date Last Done Comments [...] 10/03/2024 SDOH Screening 10/03/2025 10/03/2024 Tobacco Screening 01/07/2026 01/07/2025 HIV Screening Completed 08/08/2022, 10/01/2021 Hepatitis C [...] Blood Pressure 120/58(2024 10:33 AM EST) No Yazmin Sullivansa, PharmD Smoking [...] Plan Patient has diabetic eye disease No oLrenza Kelly Patient has diabetic eye disease Care [...] Plan Patient has diabetic eye disease No Liam Reynoldsiel Patient has diabetic eye disease Care Plan Patient has diabetic eye disease No RodolfoJosue Patient has diabetic eye disease Care Plan Patient has diabetic eye disease No Rodolfo Josue Patient has chronic kidney disease Care Plan Patient has chronic kidney disease No Rodolfo Josue Patient has chronic kidney disease Care Plan Patient has chronic kidney disease No Rodolfo Josue Patient has chronic kidney disease Care Plan Patient has chronic kidney disease No Rodolfo Josue Weekly blood pressure task Care Plan Weekly blood pressure task No Puia, Nelia, PharmD Weekly blood pressure task Care Plan Weekly blood pressure task No Puia, Nelia, PharmD Weekly blood pressure task Care Plan Weekly blood pressure task No Puia, Nelia, PharmD Patient has diabetic eye disease Care Plan Patient has diabetic eye disease No Puia, Nelia, PharmD Patient has diabetic eye disease Care Plan Patient has diabetic eye disease No Puia, Nelia, PharmD Patient has diabetic eye disease Care Plan Patient has diabetic eye disease No Puia, Nelia, PharmD Patient has chronic kidney disease Care Plan Patient has chronic kidney disease No Puia, Nelia, PharmD Patient has chronic kidney disease Care Plan Patient has chronic kidney disease No Puia, Nelia, PharmD Patient has chronic kidney disease Care Plan Patient has chronic kidney disease No Puia, Nelia, PharmD Weekly blood pressure task Care Plan Weekly blood pressure task No Fam, Felicia Weekly blood pressure task Care Plan Weekly blood pressure task No Fam, Felicia Weekly blood pressure task Care Plan Weekly blood pressure task No Fam, Felicia Patient has diabetic eye disease Care Plan Patient has diabetic eye disease No Fam, Felicia Patient has diabetic eye disease Care Plan Patient has diabetic eye disease No Fam, Felicia Patient has diabetic eye disease Care Plan Patient has diabetic eye disease No Fam, Felicia Patient has chronic kidney disease Care Plan Patient has chronic kidney disease No Fam, Felicia Patient has chronic kidney disease Care Plan Patient has chronic kidney disease No Fam, Felicia Patient has chronic kidney disease Care Plan Patient has chronic kidney disease No Fam, Felicia Weekly blood pressure task Care Plan Weekly [...] Care Plan Weekly blood pressure task No Viera, Tatum, REVENUE CYCLE ADMINISTRATOR Weekly blood pressure task Care Plan Weekly blood pressure task No Viera, Tatum, REVENUE CYCLE ADMINISTRATOR Weekly blood pressure task Care Plan Weekly blood pressure task No Viera, Tatum, REVENUE CYCLE ADMINISTRATOR Patient has diabetic eye disease Care Plan Patient has diabetic eye disease No Viera, Tatum, REVENUE CYCLE ADMINISTRATOR Patient has diabetic eye disease Care Plan Patient has diabetic eye disease No Viera, Tatum, REVENUE CYCLE ADMINISTRATOR Patient has diabetic eye disease Care Plan Patient has diabetic eye disease No Viera, Tatum, REVENUE CYCLE ADMINISTRATOR Patient has chronic kidney disease Care Plan Patient has chronic kidney disease No Viera, Tatum, REVENUE CYCLE ADMINISTRATOR Patient has chronic kidney disease Care Plan Patient has chronic kidney disease No Viera, Tatum, REVENUE CYCLE ADMINISTRATOR Patient has chronic kidney disease Care Plan Patient has chronic kidney disease No Viera, Tatum, REVENUE CYCLE ADMINISTRATOR Weekly blood pressure task Care Plan Weekly blood pressure task No Radha Miranda, PharmD Weekly blood pressure task Care Plan Weekly blood pressure task No Radha Miranda, PharmD Weekly blood pressure task Care Plan Weekly blood pressure task No Radha Miranda, PharmD Patient has diabetic eye disease Care Plan Patient has diabetic eye disease No Lisa Mirandafer, PharmD Patient has diabetic eye disease Care Plan Patient has diabetic eye disease No MirandaLisa rodfer, PharmD Patient has diabetic eye disease Care Plan Patient has diabetic eye disease No Radha Miranda, PharmD Patient has chronic kidney disease Care Plan Patient has chronic kidney disease No Lisa Mirandafer, PharmD Patient has chronic kidney disease Care Plan Patient has chronic kidney disease No Lisa Mirandafer, PharmD Patient has chronic kidney disease Care Plan Patient has chronic kidney disease No Radha Miranda, PharmD Procedures Procedure Name Priority Date/Time Associated Diagnosis Comments COVID-19 ID NOW (ULLOA) Routine 12/16/2024 2:08 AM EST COMPREHENSIVE METABOLIC PANEL Routine 2024 11:12 PM EST CBC WITH AUTO DIFFERENTIAL Routine 2024 11:12 PM EST POCT GLYCATED HEMOGLOBIN, TOTAL Routine 12/06/2024 12:48 PM EDT Type 2 diabetes mellitus with hyperglycemia, with long-term current use of insulin (HCC) LIPID PANEL, STANDARD Routine 07/24/2024 10:41 AM [...] (ULLOA) (12/16/2024 2:08 AM EST) IDNOW SERIAL# [id number] [facility] COVID-19 TEST Negative Negative [facility] COVID-19 NOTE See Note [facility] Comment: Results are for the identification of SARS-CoV2 RNA. TheSARS-CoV2 RNA is generally detectable in respiratory samplesduring the acute phase of infection. Positive results areindicative of the presence of SARS-CoV-2 RNA; clinicalcorrelation with patient history and other diagnosticinformation is necessary to determine patient infectionstatus. Positive results do not rule out bacterial infectionor co- infection with other viruses.Testing facilities within the [facility] and itsterritories are required to report all [...] use by authorized laboratories.Testing performed on the [employer] NOW utilizing NAAT. 12/16/2024 2:08 AM EST 12/16/2024 2:12 AM EST us Generic External Data Provider LAB MOLECULAR AKHIL GNOSTICS ORDERABLES Final Result [facility] [address] [place] [address] [phone] * (ABNORMAL) CBC auto differential (2024 11:12 PM EST) White Blood Count 8.1 4.8 - 10.8 X10*3/uL [facility] Red Blood Count 4.03(L) 4.20 - 5.50 X10*6/uL [facility] Hemoglobin 11.5(L) 12.0 - 16.0 g/dl [facility] Hematocrit 35.7(L) 37.0 - 47.0 % [facility] Mean Corpuscular Volume 88.6 80.0 - 98.0 fL [facility] Mean Corpuscular Hemoglobin 28.5 27.0 - 33.0 pg [facility] Mean Corpuscular HGB Conc 32.2 31.0 - 35.0 g/dl [facility] Red Cell Distribution Width 13.8 11.0 - 16.0 % [facility] Platelet Count 318 160 - 400 X10*3/uL [facility] Mean Platelet Volume 9.0(L) 9.4 - 12.3 fL [facility] Neutrophils Percent Auto 61.1 45 - 73 % [facility] Imm Gran Pct Auto 0.2 0.0 - 0.4 % [facility] Lymphocytes Percent Auto 27.6 20 - 40 % [facility] Monocytes Percent Auto 6.9 2 - 11 % [facility] Eosinophils Percent Auto 3.6 0 - 4 % [facility] Basophils Percent Auto 0.6 0 - 2 % [facility] NRBC Pct Auto 0.0 0.0 - 0.2 /100WBC [facility] Neutrophils Absolute Auto 5.0 2.0 - 8.3 x10*3/uL [facility] Imm Gran Abs Auto 0.02 0.00 - 0.03 X10*3/uL [facility] Lymphocytes Absolute Auto 2.2 1.2 - 4.9 X10*3/uL [facility] Monocytes Absolute Auto 0.6 0.1 - 1.2 X10*3/uL [facility] Eosinophils Absolute Auto 0.3 0.0 - 0.4 X10*3/uL [facility] Basophils Absolute Auto 0.1 0.0 - 0.2 X10*3/uL [facility] NRBC Abs Auto 0.000 0.0 - 0.012 X10*3/uL [facility] 2024 11:1 2 PM EST 2024 11:16 PM EST us Generic External Data Provider LAB BLOOD ORDERAB LES Final Result [facility] [address] [place] [phone] [phone] * (ABNORMAL) Comprehensive Metabolic Panel (2024 11:12 PM EST) Sodium 141 135 - 145 mmol/L [facility] Potassium 3.7 3.3 - 5.1 mmol/L [facility] Chloride 107 96 - 108 mmol/L [facility] Carbon Dioxide 27 22 - 29 mmol/L [facility] Anion Gap 11(L) 12 - 20 [facility] Urea Nitrogen (BUN) 16 9 - 16 mg/dL [facility] Creatinine, Serum 1.05 0.5 - 1.4 mg/dL [facility] Creatinine Clr Calc Pharmacy 48.4 [facility] Comment:Provided height and weight: 154.94 cm,68.039 kg.eGFR (calculated from the MDRD study equation) and eCrCl(calculated from the Cockcroft-Gault equation) are based ondifferent parameters and may not yield comparable results.If eCrCl result is absurd, please check patient'sheight/weight. Estimated Glomerular Filt Rate 53 [facility] Comment:Chronic Kidney Disea se: Estimated GFR < 60 mL/min/1.74o6Xaonyh Kidney Disease: Estimated GFR < 15 mL/min/1.73m2 Glucose 174(H) 60 - 115 mg/dL [facility] Calcium 8.4 8.4 - 10.2 mg/dL [facility] Bilirubin, Total 0.2 0.0 - 1.0 mg/dL [facility] Aspartate Amino Transferase 16 5 - 31 U/L [facility] Alanine Aminotransferase <6 0 - 31 U/L [facility] Total Protein 5.7(L) 6.5 - 8.0 g/dL [facility] Albumin Level 3.0(L) 3.5 - 5.0 g/dL [facility] Alkaline Phosphatase 93 39 - 117 U/L [facility] 2024 11:1 2 PM EST 2024 11:16 PM EST us Generic External Data Provider LAB BLOOD ORDERAB LES Final Result Performing Organization Address City/[facility]/ZIP Co de Phone Number [facility] [address] [place] [phone] * (ABNORMAL) POCT Hgb A1c (12/06/2024 12:48 PM EDT) Hemoglobin A1C 10.1(A) 4.0 - 5.7 % Blood 12/06/2024 12:4 8 PM EDT Radha Jamison DO POINT OF CARE TEST ENTER/BHARGAVI T ORDERABLES Final Result * (ABNORMAL) Lipid Panel, Standard (07/24/2024 10:41 AM EDT) Triglycerides 157(H) <150 mg/dL [facility] Comment:Desirable Triglyceri de: less than 150 mg/dLBorderline High Triglyceride 150-199 mg/dLHigh Triglyceride: 200-499 mg/dLVery High Triglyceride: greater than or equal to 5OO mg/dL Cholesterol 234(H) <200 mg/dL [facility] Comment:Desirable Cholestero l: less than 200 mg/dLBorderline High Cholesterol: 200-239 mg/dLHigh Cholesterol: greater than 239 mg/dL LDL Cholesterol Calculated 159(H) <100 mg/dL [facility] Comment:Desirable LDL: less than 100 mg/dLNear Optimal/Above Optimal LDL: 110- 129 mg/dLBorderline High LDL: 130-159 mg/dLHigh LDL: 160-189 mg/dLVery High LDL: greater than or equal to 190 mg/dL HDL Cholesterol 44 >40 mg/dL [facility] Comment:Desirable HDL: great er than 40 mg/dL Note: This HDL assay may give artificially low results in patients with liver disease. 07/24/2024 10:4 1 AM EDT 07/24/2024 10:41 AM EDT Radha Jamison DO LAB BLOOD ORDERABLES Final R esult [facility] [address] [place] [phone] [phone] * (ABNORMAL) Albumin, Random Urine W/Creatinine (05/15/2023 8:20 AM EDT) Creatinine, Urine 105.69 mg/dL [facility] Microalbumin Urine 1,418.0 mg/L H [facility] Microalbum Creatinine Ratio Ur 1,341.6(H ) <30 ug/mg cr [facility] Comment:Albumin/Creatinine R atio Reference Ranges: Normal: < 30 ug/mg creatinine Microalbuminuria: 30 - 300 ug/mg creatinineClinical Albuminuria: > 300 ug/mg creatinine Urine (Urine, Random) 05/15/2023 8:20 AM EDT 05/15/2023 8:31 AM EDT Radha Jamison DO LAB URINE ORDERABLES Final R esult Performing Organization Address [facility] Co de Phone Number [facility] [address] [place] [address] [phone] * Hepatitis C Antibody with Reflex to HCV RNA,PCR w/Reflex to Genotype, LiPA (08/08/2022 10:44 AM EDT) Hepatitis C Antibody NON-REACT ROMERO NON-REACT ROMERO [facility] [facility] [facility] Comment: HCV antibody was non-reactive. There is no laboratory evidence of HCV infection. In most cases, no further action is required. However, if recent HCV exposure is suspected, a test for HCV RNA (test code 97752) is suggested. For additional information, please refer to http://education.Anomo.iGuiders/faq/IQL312 (This link is being provided for informational/ educational purposes only.) 08/08/2022 10:4 4 AM EDT 08/08/2022 10:45 AM EDT Narrative [facility] - 08/09/2022 7:27 PM EDT FASTING:YES COLLECTION KIT GIVEN TO PATIENT. PATIENT ADVISED TO RETURN. FASTING: YES Radha Shaheen DO LAB BLOOD ORDERABLES Final R esult Performing Organization Address City/[facility]/ZIP Co de Phone Number [facility] [place] [address], [facility] [place] [phone] [employer] [place] [employer] [address] [place], [place] [phone] * HIV-1/2 Antigen and Antibodies, Fourth Generation, with Reflexes (08/08/2022 10:44 AM EDT) HIV Antigen/Antibody, 4th Generation NON-REAC TIVE NON-REAC TIVE [employer] [place] [facility] [facility] Comment: HIV-1 antigen and HIV-1/HIV-2 antibodies [...] purpose. For additional information please refer to http://education.Rayku.iGuiders/faq/GUX001 (This link is being provided for informational/ [...] ORDERABLES Final R esult Performing Organization Address [facility]/ZIP Co de Phone Number [facility] Landen [address], [facility] [place] [address] [employer] [place] [facility] [address] [place] [phone] * Mammography Report 1 (10/06/2021 1:35 PM [...] 01/03/2025 Patient has chronic kidney disease 01/03/2025 Weekly blood pressure task 01/06/2025 Weekly blood pressure task 01/06/2025 Weekly blood pressure task 01/06/2025 Patient has diabetic eye disease 01/06/2025 Patient has diabetic eye disease 01/06/2025 Patient has diabetic eye disease 01/06/2025 Patient has chronic kidney disease 01/06/2025 Patient has chronic kidney disease 01/06/2025 Patient has chronic kidney disease 01/06/2025 Weekly blood pressure task 01/07/2025 Weekly blood pressure task 01/07/2025 Weekly blood pressure task 01/07/2025 Patient has diabetic eye disease 01/07/2025 Patient has diabetic eye disease 01/07/2025 Patient has diabetic eye disease 01/07/2025 Patient has chronic kidney disease 01/07/2025 Patient has chronic kidney disease 01/07/2025 Patient has chronic kidney disease 01/07/2025 Weekly blood pressure task 01/08/2025 Weekly blood pressure task 01/08/2025 Weekly blood pressure task 01/08/2025 Patient has diabetic eye disease 01/08/2025 Patient has diabetic eye disease 01/08/2025 Patient has diabetic eye disease 01/08/2025 Patient has chronic kidney disease 01/08/2025 Patient has chronic kidney disease 01/08/2025 Patient has chronic kidney disease 01/08/2025 Weekly blood pressure task 01/17/2025 Weekly blood pressure task 01/17/2025 Weekly blood pressure task 01/17/2025 Patient has diabetic eye disease 01/17/2025 Patient has diabetic eye disease 01/17/2025 Patient has diabetic eye disease 01/17/2025 Patient has chronic kidney disease 01/17/2025 Patient has chronic kidney disease 01/17/2025 Patient has chronic kidney disease 01/17/2025 Weekly blood pressure task 01/20/2025 Weekly blood pressure task 01/20/2025 Weekly blood pressure task 01/20/2025 Patient has diabetic eye disease 01/20/2025 Patient has diabetic eye disease 01/20/2025 Patient has diabetic eye disease 01/20/2025 Patient has chronic kidney disease 01/20/2025 Patient has chronic kidney disease 01/20/2025 Patient has chronic kidney disease 01/20/2025 Insurance * Guarantor: Rocío Hallman Account Type Relation to Patient Date of Phone Billing Address Personal/Family Self 1960 [address] [facility] [address] [place] [address] [place] [place] [address] [place] [address] * Guarantor: Rocío Hallman Account Type Relation to Patient Date of Phone Billing Address Personal/Family Self [address] [place] [address] * Guarantor: Rocío Hallman Account Type Relation to Patient Date of Phone Billing Address Personal/Family Self [address] [place] [address] * Guarantor: Rocío Hallman Account Type Relation to Patient Date of Phone Billing Address Personal/Family Self [address] [place] [address] Care Teams Die Repairer Trimmer Dies Relationship Specialty Start Date End Date Radha Jamison DO [address] [place] [address] PCP - General Family Medicine 01/26/12 Nelia Sullivan PharmD [address] [place] [address] Pharmacist Internal Medicine 08/31/23 Dalila Carson, JOANN [address] [place] [address] Registered Nurse Family Medicine 12/31/24 Ekta Reynolds 12/31/24 Laurel Monterroso Front End DeveloperPersonnel Clerk 10/27/22 Saige Aguilar 09/26/23
--- OUTSIDE RECORDS SUMMARY | 2025-01-28 12:23 | XMS_ITS | Encounter Summary ---
Author Organization [employer] Address 75 [facility] 7t [place] [address] Care Team Providers Care Gravedigger Name Role Phone ShaheenRadha Primary Care Provider Abdias Murillo PharmD Unavailable Unavail able Nelia Sullivan PharmD Unavailable [phone] Letty Rinaldi Unavailable Dalila Carson RN Unavailable [phone] Ekta Reynolds Unavailable Reason for Visit * Reason Onset Date Comments Med Refill Appointment 05/15/2022 Re: her appt for today as [id number] @ 10:15 am. & No active phone # at this time. Encounter Details Date Type Department Care Team (Late st Contact Info) Description 05/15/2022 Refill [facility] MEDICINE [address] [place], [place] [phone] Abdias Murillo, PharmD Type 2 diabetes mellitus with other specified complication, with long-term current use of insulin ([facility]) Social History Tobacco Use Types Packs/Day [...] pt regarding her appt for today as [id number] @ 10:15 am. And her phone # is not active at this time. documented in this encounter Plan of Treatment Upcoming Encounters Date Type Department Care Team (Late st Contact Info) Description 02/11/2025 10:30 AM EST Medication Management [facility] MEDICINE [address] [place] [address] Nelia Sullivan PharmD [address] [place] [address] 03/13/2025 9:30 AM EST Office Visit [facility] OPTOMETRY [address] [place] [address] Radha Taylor, OD [address] [place] [address] documented as of this encounter Goals Goal [...] documented as of this encounter Care Teams Gravedigger Relationship Specialty Start Date End Date Radha Jamison DO [address] [place] [address] PCP - General Family Medicine 01/26/12 Abdias Murillo, KeithD [address] [place] [address] Pharmacist Internal Medicine 03/21/22 08/30/23 Nelia Sullivan, KeithD [address] [place] [address] Pharmacist Internal Medicine 08/31/23 Letty Rinaldi 12/16/24 12/18/24 Dalila Carson, JOANN [address] [place] [address] Registered Nurse Family Medicine 12/31/24 Ekta Reynolds 12/31/24 Laurel Monterroso Java Mobile DeveloperPassenger Conductor 10/27/22 Saige Aguilar 09/26/23 documented as of this encounter
--- OUTSIDE RECORDS SUMMARY | 2025-01-28 12:23 | XMS_ITS | Encounter Summary ---
Author Organization [employer] Address 75 [facility] 7t [place] [address] Care Team Providers Care J2Ee Architect Name Role Phone Radha Jamison DO Primary Care Provider Abdias Murillo PharmD Unavailable Unavail able Nelia Sullivan PharmD Unavailable Letty Rinaldi Unavailable Dalila Carson RN Unavailable [phone] Ekta Reynolds Unavailable Reason for Visit * Reason Comments Med Refill Encounter Details Date Type Department Care Team (Late st Contact Info) Description 07/20/2022 Refill [facility] [address] [place], [place] [phone] Radha Jamison DO [address] [place] [address] Hypertension, unspecified type Social History Tobacco Use [...] Description 02/11/2025 10:30 AM EST Medication Management [facility] MEDICINE 230 [place] [address] Nelia Sullivan PharmD [address] [place] [address] 03/13/2025 9:30 AM EST Office Visit [facility] OPTOMETRY [address] [place] [address] Radha Taylor, OD [address] [place] [address] documented as of this encounter Goals Goal [...] documented as of this encounter Care Teams J2Ee Architect Relationship Specialty Start Date End Date Radha Jamison DO [address] [place] [address] PCP - General Family Medicine 01/26/12 Abdias Murillo, PharmD [address] [place] [address] Pharmacist Internal Medicine 03/21/22 08/30/23 Nelia Sullivan, PharmD [address] [place] [address] Pharmacist Internal Medicine 08/31/23 Letty Rinaldi 12/16/24 12/18/24 Dalila Carson RN [address] [place] [address] Registered Nurse Family Medicine 12/31/24 Ekta Reynolds 12/31/24 Laurel Monterroso Photonics TechnicianMedical Staff Manager 10/27/22 Saige Aguilar 09/26/23 documented as of this encounter
--- OUTSIDE RECORDS SUMMARY | 2025-01-28 12:23 | XMS_ITS | Encounter Summary ---
Author Organization [employer] Address 75 [facility] 7t [place] [address] Care Team Providers Care Building Performance Specialist Name Role Phone Radha Jamison DO Primary Care Provider [phone] Abdias Murillo PharmD Unavailable Unavail able Nelia Sullivan PharmD Unavailable Letty Rinaldi Unavailable Dalila Carson RN Unavailable Ekta Reynolds Unavailable Reason for Visit * Reason Comments Med Refill Encounter Details Date Type Department Care Team (Late st Contact Info) Description 02/14/2023 Refill [facility] MEDICINE [address] [place], [place] [phone] Radha Jamison DO 230 [place], [place] [phone] Chronic bilateral low back pain, unspecified whether [...] Description 02/11/2025 10:30 AM EST Medication Management [facility] MEDICINE [address] [place] [address] Nelia Sullivan PharmD [address] [place] [address] 03/13/2025 9:30 AM EST Office Visit [facility] OPTOMETRY [address] [place] [address] Tarka, Radha, OD [address] [place] [address] documented as of this encounter Goals Goal [...] documented as of this encounter Care Teams Building Performance Specialist Relationship Specialty Start Date End Date Radha Jamison DO [address] [place] [address] PCP - General Family Medicine 01/26/12 Abdias Murillo, PharmD [address] [place] [address] Pharmacist Internal Medicine 03/21/22 08/30/23 Nelia Sullivan PharmD [address] [place] [address] Pharmacist Internal Medicine 08/31/23 Letty Rinaldi 12/16/24 12/18/24 Dalila Carson RN [address] [place] [address] Registered Nurse Family Medicine 12/31/24 Ekta Reynolds 12/31/24 Laurel Monterroso Raw Mill OperatorOracle Technical Architect 10/27/22 Saige Aguilar 09/26/23 documented as of this encounter
--- OUTSIDE RECORDS SUMMARY | 2025-01-28 12:23 | XMS_ITS | Encounter Summary ---
Author Organization [employer] Address [address] [facility] 7t [place] [address] Care Team Providers Care Olap Developer Name Role Phone Radha Jamison DO Primary Care Provider [phone] Abdias Murillo PharmD Unavailable Unavail able Nelia Sullivan PharmD Unavailable [phone] Letty Rinaldi Unavailable Dalila Carson RN Unavailable [phone] Ekta Reynolds Unavailable Reason for Visit * Reason Comments Med Refill Encounter Details Date Type Department Care Team (Late st Contact Info) Description 03/14/2023 Refill [facility] 230 [place], [place] [phone] Radha Jamison DO [address] [place], [place] [phone] Chronic bilateral low back pain, unspecified whether [...] Description 02/11/2025 10:30 AM EST Medication Management [facility] MED[facility] [address] [place] [address] Nelia Sullivan PharmD [address] [place] [address] 03/13/2025 9:30 AM EST Office Visit [facility] OPTOMETRY [address] [place] [address] Tarka, Radha, OD [address] [place] [address] documented as of this encounter Goals Goal [...] documented as of this encounter Care Teams Olap Developer Relationship Specialty Start Date End Date Radha Jamison DO [address] [place] [address] PCP - General Family Medicine 01/26/12 Abdias Murillo, PharmD [address] [place] [address] Pharmacist Internal Medicine 03/21/22 08/30/23 Nelia Sullivan PharmD [address] [place] [address] Pharmacist Internal Medicine 08/31/23 Letty Rinaldi 12/16/24 12/18/24 Dalila Carson RN [address] [place] [address] Registered Nurse Family Medicine 12/31/24 Ekta Reynolds 12/31/24 Laurel Monterroso Bit TripolerData Manager 10/27/22 Saige Aguilar 09/26/23 documented as of this encounter
--- OUTSIDE RECORDS SUMMARY | 2025-01-28 12:23 | XMS_ITS | Encounter Summary ---
Author Organization [employer] Address 75 [facility] 7t [place] [address] Care Team Providers Care Electrical Equipment Tester Name Role Phone Radha Jamison DO Primary Care Provider Abdias Murillo PharmD Unavailable Unavail able Nelia Sullivan PharmD Unavailable [phone] Letty Rinaldi Unavailable Dalila Carson RN Unavailable [phone] Ekta Reynolds Unavailable Reason for Visit * Reason Comments Med Refill Encounter Details Date Type Department Care Team (Late st Contact Info) Description 06/10/2022 Refill [facility] MEDICINE [address] [place], [place] [phone] Radha Jamison DO [address] [place], [place] [phone] Chronic bilateral low back pain, unspecified whether [...] 10:30 AM EST Medication Management [facility] MEDICINE [address] [place] [address] Nelia Sullivan PharmD [address] [place] [address] 03/13/2025 9:30 AM EST Office Visit [facility] OPTOMETRY 267 [place] [address] Radha Taylor, OD [address] [place] [address] documented as of this encounter Goals Goal [...] as of this encounter Care Teams Electrical Equipment Tester Relationship Specialty Start Date End Date Radha Jamison DO [address] [place] [address] PCP - General Family Medicine 01/26/12 Abdias Murillo, PharmD [address] [place] [address] Pharmacist Internal Medicine 03/21/22 08/30/23 Nelia Sullivan PharmD [address] [place] [address] Pharmacist Internal Medicine 08/31/23 Letty Rinaldi 12/16/24 12/18/24 Dalila Carson RN [address] [place] [address] RocioMARA [address] Registered Nurse Family Medicine 12/31/24 Ekta Reynolds 12/31/24 Laurel Monterroso Telephone LineworkerRn Placement 10/27/22 Saige Aguilar 09/26/23 documented as of this encounter
--- OUTSIDE RECORDS SUMMARY | 2025-01-28 12:23 | XMS_ITS | Encounter Summary ---
Author Organization [employer] Address 75 [facility] 7t [place] [address] Care Team Providers Care Arborist Name Role Phone Radha Jamison DO Primary Care Provider Nelia Sullivan PharmD Unavailable [phone] Dalila Carson RN Unavailable [phone] Ekta Reynolds Unavailable Reason for Visit * Reason Onset Date Comments Appointment Request 12/30/2024 Encounter Details Date Type Department Care Team ([facility] st Contact Info) Description 12/30/2024 Telephone [facility] MEDICINE [address] [place], [place] [phone] Radha Jamison DO [address] [place], [place] [phone] Appointment Request Social History Tobacco Use Types [...] to get Oxycodone prescribed Contact pt at [phone] (belgian) documented in this encounter Plan of Treatment Upcoming Encounters Date Type Department Care Team (Late st Contact Info) Description 02/11/2025 10:30 AM EST Medication Management [facility] MEDICINE [address] [place], [place] [phone] Nelia Sullivan, PharmD [address] [place] [address] 03/13/2025 9:30 AM EST Office Visit [facility] OPTOMETRY [address] [place] [address] Radha Taylor, OD [address] [place] [address] documented as of this encounter Goals Goal [...] documented as of this encounter Care Teams Arborist Relationship Specialty Start Date End Date Radha Jamison DO [address] [place] [address] PCP - General Family Medicine 01/26/12 Nelia Sullivan PharmD [address] [place] [address] Pharmacist Internal Medicine 08/31/23 Dalila Carson, JOANN [address] [place] [address] Registered Nurse Family Medicine 12/31/24 Ekta Reynolds 12/31/24 Laurel Monterroso Avionics EngineerDirector Of Housing And Energy Services 10/27/22 Saige [facility] 09/26/23 documented as of this encounter
--- OUTSIDE RECORDS SUMMARY | 2025-01-28 12:23 | XMS_ITS | Encounter Summary ---
Author Organization [employer] Address 75 [facility] 7t [place] [address] Care Team Providers Care Pipelines Superintendent Name Role Phone Radha Jamison DO Primary Care Provider Abdias Murillo PharmD Unavailable Unavail able Nelia Sullivan PharmD Unavailable [phone] Letty Rinaldi Unavailable Dalila Carson RN Unavailable [phone] Ekta Reynolds Unavailable Reason for Visit * Reason Comments Med Refill Encounter Details Date Type Department Care Team (Late st Contact Info) Description 02/15/2023 Refill [facility] MEDICINE 230 [place], [place] [phone] Radha Jamison DO 230 [place], [place] [phone] Chronic bilateral low back pain, unspecified whether [...] Medication Management [facility] MEDICINE [address] [place] [address] Nelia Sullivan PharmD [address] [place] [address] 03/13/2025 9:30 AM EST Office Visit [facility] OPTOMETRY [address] [place] [address] Tarka, Radha, OD [address] [place] [address] documented as of this encounter Goals Goal [...] documented as of this encounter Care Teams Pipelines Superintendent Relationship Specialty Start Date End Date Radha Jamison DO [address] [place] [address] PCP - General Family Medicine 01/26/12 Abdias Murillo, PharmD [address] [place] [address] Pharmacist Internal Medicine 03/21/22 08/30/23 Nelia Sullivan PharmD [address] [place] [address] Pharmacist Internal Medicine 08/31/23 Letty Rinaldi 12/16/24 12/18/24 Dalila Carson RN [address] [place] [address] Registered Nurse Family Medicine 12/31/24 Ekta Reynolds 12/31/24 Laurel Monterroso Gas Usage Meter ClerkGasateria Attendant 10/27/22 Saige Aguilar 09/26/23 documented as of this encounter
== END 2025-01-28 10:18 | disposition home or self-care (01) ==
LOC: HO.HKA 10:03
PROVIDERS: PCP Family Medicine; Visit Provider Internal Medicine Hypertension Specialist
DX: I10 Essential (primary) hypertension (principal); I25.10 Atherosclerotic heart disease of native coronary artery without angina pectoris; Z98.890 Other specified postprocedural states; I65.23 Occlusion and stenosis of bilateral carotid arteries; I73.9 Peripheral vascular disease, unspecified; R80.9 Proteinuria, unspecified; D64.9 Anemia, unspecified; E11.3213 Type 2 diabetes mellitus with mild nonproliferative diabetic retinopathy with macular edema, bilateral
CPT/HCPCS: 99214

== ENCOUNTER → 2025-01-28 10:02 | Outpatient (BNVA) | payer MEDICAID, SELFPAY | PROVIDERS: PCP Family Medicine; Visit Provider Internal Medicine Hypertension Specialist | DX: I10 Essential (primary) hypertension (principal); I25.10 Atherosclerotic heart disease of native coronary artery without angina pectoris; I65.23 Occlusion and stenosis of bilateral carotid arteries; I73.9 Peripheral vascular disease, unspecified; R80.9 Proteinuria, unspecified; D64.9 Anemia, unspecified; E11.3213 Type 2 diabetes mellitus with mild nonproliferative diabetic retinopathy with macular edema, bilateral; Z98.890 Other specified postprocedural states; Z79.899 Other long term (current) drug therapy; F17.210 Nicotine dependence, cigarettes, uncomplicated; Z79.01 Long term (current) use of anticoagulants; Z79.4 Long term (current) use of insulin | CPT/HCPCS: 99212 ==